=== PATIENT | female | born 1965 | race Caucasian/White ===

== ENCOUNTER 2017-03-21 16:03 | Emergency (ER) | payer SELFPAY ==
[~2017-03-21] VITALS: Ht 165.1 cm; Wt 71.5 kg
[2017-03-21 16:04] VITALS: BP 110/77; PULSE 103; RESP 20; TEMP 98.2; O2SAT 99
[2017-03-21 17:45] VITALS: PULSE 86; RESP 18; O2SAT 100
--- NOTE | 2017-03-26 04:42 | PD ---
HPI Chief Complaint: Skin Problem Time Seen by Provider: 16:12 Travel History International Travel<30 days: No Contact w/Intl Traveler<30days: No Traveled to known affect area: No History of Present Illness HPI Pt is a 51-year-old female presenting to the emergency department for evaluation of a possible insect bite to her neck. Patient states it is on the right side, she noticed it a week ago. Patient states that it appears to be resolving on its own however she continues to have pain. She reports her pain is a 5 out of 10 and states it is sore. She denies any fever, chills, headache , shortness of breath, wheezing, drainage. Symptoms onset was gradual, symptoms exacerbated to touch. PFSH Past Medical History Medical History: Denies Significant Hx ?: Not Social History Alcohol Use: No Tobacco Use: Yes (pack a day ) Substance Use: No Review of Systems Except as stated in HPI: all other systems reviewed are Neg Skin: Positive Lesions Physical Exam Narrative GENERAL: Well-developed, well-nourished, alert female. Presenting in no acute distress. SKIN: Warm and dry. HEAD: Normocephalic. EYES: No scleral icterus. No injection or drainage. CARDIOVASCULAR: Regular rate and rhythm RESPIRATORY: No accessory muscle use. MDM Medical Decision Making Medical Screen Exam Complete: Yes Emergency Medical Condition: Yes Differential Diagnosis Cellulitis versus abscess versus insect bite versus dermatitis versus other Narrative Course Patient is a 51-year-old female presenting for evaluation of a possible insect bite to her neck. She is vital signs are stable, she was placed in a room to see a provider and left before workup could be initiated. Patient left AGAINST MEDICAL ADVICE. Diagnosis Primary Impression: Left against medical advice Disposition: 07 AGAINST MEDICAL ADVICE Ashwini Norman Mar 26, 2017 04:42
== END 2017-03-21 18:00 | disposition left against medical advice (07) ==
LOC: NEPD 16:03
DX: L98.9 Disorder of the skin and subcutaneous tissue, unspecified (principal); F17.200 Nicotine dependence, unspecified, uncomplicated
CPT/HCPCS: 99281

== ENCOUNTER 2017-08-02 05:49 | Emergency (ER) | payer SELFPAY ==
[~2017-08-02] VITALS: Ht 165.1 cm; Wt 70.0 kg
[2017-08-02 05:51] VITALS: BP 137/75; PULSE 102; RESP 20; O2SAT 98
[2017-08-02] MEDS ORDERED: LEVEMIR SQ ×2 (06:13→11:19)
[2017-08-02] MEDS ORDERED: NOVOLOGP2 SQ ×2 (06:13→11:19)
--- NOTE | 2017-08-02 06:37 | PD ---
HPI . Right foot ulcer Chief Complaint: Skin Problem Time Seen by Provider: 06:34 Travel History International Travel<30 days: No Contact w/Intl Traveler<30days: No Traveled to known affect area: No History of Present Illness HPI Patient is a 52-year-old female who has diabetes insulin-dependent she has noticed a week ago small cut on her right heel which has progressed to a very large deep ulcer over the last week she is not on antibiotic she does not have a primary care doctor she has not seen a doctor for this her sugar reading is very high it was 400 in the [facility] and for us it is in the 500s she reports taking her insulin but she says she is very resistant to insulin and often runs very high she is not being followed by primary care doctor her main complaint is severe pain in the right heel and now radiating up to her hip numbness in her lateral right thigh she denies fever she denies shaking chills she also reports having epigastric nausea. 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 occisionally rupture (08/02/17) ; ) Tetanus Vaccination: > 5 Years ?: Not Menopausal: Yes : 2 Para: 2 Miscarriage: 0 : 0 Past Surgical History Surgical History: No Previous Surgery Section: Yes (X2) Social History Alcohol Use: No (denies ) Tobacco Use: No (quit 6mths ago (08/02/17)) Substance Use: No (denies ) Allergies-Medications (Allergen,Severity, Reaction): Coded Allergies: No Known Allergies (Unverified , 08/02/17) Reported Meds & Prescriptions Reported Meds & Active Scripts Active Novolog Inj (Insulin Aspart) 1,000 Unit/10 Ml Vial 5 Units SQ TIDAC Levemir Inj (Insulin Detemir) 1,000 unit/ 10 ML Vial 65 Units SQ HS 30 Days Do not mix with any other Insulin. [place] (Hydrocodone-Acetaminophen) 5 Mg-325 Mg Tab 1 Tab PO Q4H PRN Clindamycin (Clindamycin HCl) 300 Mg Cap 600 Mg PO Q8H 10 Days Review of Systems Except as stated in HPI: all other systems reviewed are Neg General / Constitutional: No: Fever, Chills Musculoskeletal: Positive: Other Physical Exam Narrative GENERAL: Patient is tearful SKIN: Warm and dry. Right foot ulcer on the heel 6 x 4 cm HEAD: Atraumatic. Normocephalic. EYES: Pupils equal and round. No scleral icterus. No injection or drainage. ENT: No nasal bleeding or discharge. Mucous membranes pink and moist. NECK: Trachea midline. No JVD. CARDIOVASCULAR: Regular rate and rhythm. RESPIRATORY: No accessory muscle use. Clear to auscultation. Breath sounds equal bilaterally. GASTROINTESTINAL: Abdomen soft, non-tender, nondistended. Hepatic and splenic margins not palpable. MUSCULOSKELETAL: Extremities --right heel has a dark purple to blackish ulcer 4 cm wide 6 cm long there is no purulence NEUROLOGICAL: Awake and alert. No obvious cranial nerve deficits. Motor grossly within normal limits. Five out of 5 muscle strength in the arms and legs. Normal speech. PSYCHIATRIC: Appropriate mood and affect; insight and judgment normal. Data Data Last Documented VS Vital Signs Date Time Temp Pulse Resp B/P (MAP) Pulse Ox O2 Delivery O2 Flow Rate FiO2 08/02/17 11:30 97.8 78 16 122/81 (95) 99 08/02/17 09:16 Room Air Orders Orders Complete Blood Count With Diff (08/02/17 06:19) Comprehensive Metabolic Panel (08/02/17 06:19) Lipase (08/02/17 06:19) Beta Hydroxybutyrate (Acetone) (08/02/17 06:19) Blood Gas Venous (Vbg) (08/02/17 06:20) Morphine Inj (Morphine Inj) (08/02/17 06:45) Sodium Chlorid 0.9% 500 Ml Inj (Ns 500 M (08/02/17 06:45) Foot, Complete ([id number]) (08/02/17 ) Prochlorperazine Inj (Compazine Inj) (08/02/17 07:15) Morphine Inj (Morphine Inj) (08/02/17 07:15) Clindamycin 600 Mg/Ns Premix (Cleocin 60 (08/02/17 07:15) Insulin Human Regular Inj (Novolin R Inj (08/02/17 07:30) Bedside Glucose KARELY.CSUGAR (08/02/17 09:14) Insulin Human Regular Inj (Novolin R Inj (08/02/17 09:30) Bedside Glucose KARELY.CSUGAR (08/02/17 11:00) Ed Discharge Order (08/02/17 11:20) Labs Laboratory Tests Test 08/02/17 06:00 08/02/17 06:28 White Blood Count 11.0 TH/MM3 Red Blood Count 3.46 MIL/MM3 Hemoglobin 10.3 GM/DL Hematocrit 30.1 % Mean Corpuscular Volume 86.9 FL Mean Corpuscular Hemoglobin 29.8 PG Mean Corpuscular Hemoglobin Concent 34.3 % Red Cell Distribution Width 12.8 % Platelet Count 300 TH/MM3 Mean Platelet Volume 9.8 FL Neutrophils (%) (Auto) 65.6 % Lymphocytes (%) (Auto) 28.3 % Monocytes (%) (Auto) 4.8 % Eosinophils (%) (Auto) 0.4 % Basophils (%) (Auto) 0.9 % Neutrophils # (Auto) 7.2 TH/MM3 Lymphocytes # (Auto) 3.1 TH/MM3 Monocytes # (Auto) 0.5 TH/MM3 Eosinophils # (Auto) 0.0 TH/MM3 Basophils # (Auto) 0.1 TH/MM3 CBC Comment DIFF FINAL Differential Comment Blood Urea Nitrogen 10 MG/DL Creatinine 0.98 MG/DL Random Glucose 496 MG/DL Total Protein 7.7 GM/DL Albumin 1.9 GM/DL Calcium Level 7.6 MG/DL Alkaline Phosphatase 448 U/L Aspartate Amino Transf (AST/SGOT) 37 U/L Alanine Aminotransferase (ALT/SGPT) 25 U/L Total Bilirubin 0.4 MG/DL Sodium Level 132 MEQ/L Potassium Level 3.5 MEQ/L Chloride Level 95 MEQ/L Carbon Dioxide Level 28.3 MEQ/L Anion Gap 9 MEQ/L Estimat Glomerular Filtration Rate 59 ML/MIN Lipase 120 U/L B-Hydroxybutyrate 0.10 MMOL/L Blood Gas Puncture Site PIV Blood Gas Patient Temperature 98.6 Venous Blood pH 7.51 Venous Blood Partial Pressure CO2 34 mmHg Venous Blood Partial Pressure O2 57 mmHg Venous Blood HCO3 27 mmol/L Venous Blood Oxygen Saturation 87 % Venous Blood Oxygen Content 11.6 Vol % Venous Blood Base Excess 4.4 mmol/L Oxygen Delivery Device ROOM AIR Blood Gas Inspired Oxygen 21 % MDM Medical Decision Making Medical Screen Exam Complete: Yes Emergency Medical Condition: Yes Medical Record Reviewed: Yes Differential Diagnosis pt has ulcer on right heal of trauma vs pressure ulcer vs PVD insufficiency vascualr ulcar of ischemia vs infectious other Narrative Course pt has ulcer needs antibiotics and would and podiatry consult , will sign out to on coming attending Diagnosis Primary Impression: Foot ulcer Qualified Codes: L97.519 - Non-pressure chronic ulcer of other part of right foot with unspecified severity Scripts Insulin Aspart Inj (Novolog Inj) 1,000 Unit/10 Ml Vial 5 UNITS SQ TIDAC for Blood Sugar Management, #10 ML 0 Refills Prov: Lolis Brandon MD 08/02/17 Insulin Detemir Inj (Levemir Inj) 1,000 unit/ 10 ML Vial 65 UNITS SQ HS for Blood Sugar Management for 30 Days, VIAL 0 Refills Do not mix with any other Insulin. Prov: Lolis Brandon MD 08/02/17 Hydrocodone-Acetaminophen ([place]) 5 Mg-325 Mg Tab 1 TAB PO Q4H Y for PAIN, #12 TAB 0 Refills Prov: Lolis Brandon MD 08/02/17 Clindamycin (Clindamycin) 300 Mg Cap 600 MG PO Q8H for Infection for 10 Days, #60 CAP 0 Refills Prov: Lolis Brandon MD 08/02/17 Edmundo Salinas MD Aug 02, 2017 06:37
[2017-08-02] MEDS ORDERED: SODIUM CHLORID 0.9% 500 ML INJ 500 ML IV ONE (06:45)
[2017-08-02] MEDS ORDERED: MORPHINE SULFATE 4 MG/ML INJ IV PUSH ONE ×2 (06:45→07:15)
[2017-08-02 06:48] LABS: AUTOMATED NEUTROPHIL # 7.2 TH/MM3 (1.8-7.7); BASOPHIL # 0.1 TH/MM3 (0-0.2); BASOPHIL % 0.9 % (0.0-2.0); EOSINOPHIL % 0.4 % (0.0-4.0); HEMATOCRIT 30.1 % (35.0-46.0); HEMOGLOBIN 10.3 GM/DL (11.6-15.3); LYMPH % 28.3 % (9.0-44.0); LYMPHOCYTE # 3.1 TH/MM3 (1.0-4.8); MEAN CELL VOLUME 86.9 FL (80.0-100.0); MEAN CORPUSCULAR HEMOGLOBIN 29.8 PG (27.0-34.0); MEAN CORPUSCULAR HGB CONC 34.3 % (32.0-36.0); MEAN PLATELET VOLUME 9.8 FL (7.0-11.0); MONO % 4.8 % (0.0-8.0); MONOCYTE # 0.5 TH/MM3 (0-0.9); NEUT % 65.6 % (16.0-70.0); PLATELET COUNT 300 TH/MM3 (150-450); RED BLOOD COUNT 3.46 MIL/MM3 (4.00-5.30); RED CELL DISTRIBUTION WIDTH 12.8 % (11.6-17.2)
[2017-08-02] MEDS ORDERED: CLINDAMYCIN 600 MG/NS PREMIX 50 ML IV ONE (07:15)
[2017-08-02] MEDS ORDERED: PROCHLORPERAZINE INJ 10 MG/2 ML VIAL IV PUSH ONE (07:15)
[2017-08-02 07:16] LABS: ALBUMIN 1.9 GM/DL (3.4-5.0); ALKALINE PHOSPHATASE 448 U/L (45-117); ALT (GPT) 25 U/L (10-53); AST (GOT) 37 U/L (15-37); BICARBONATE 28.3 MEQ/L (21.0-32.0); BLOOD UREA NITROGEN 10 MG/DL (7-18); CALCIUM 7.6 MG/DL (8.5-10.1); CHLORIDE 95 MEQ/L (98-107); CREATININE 0.98 MG/DL (0.50-1.00); GLOMERULAR FILTRATION RATE 59 ML/MIN (>89); SODIUM (NA) 132 MEQ/L (136-145); TOTAL BILIRUBIN ADULT 0.4 MG/DL (0.2-1.0); TOTAL PROTEIN 7.7 GM/DL (6.4-8.2)
--- NOTE | 2017-08-02 07:16 | RADRPT ---
EXAM DATE: 08/02/2017 7:03 AM EDT AGE/SEX: 52 years / Female INDICATIONS: Pain and inflammation right foot, evaluate osteomyelitis CLINICAL DATA: This is the patient's initial encounter. Patient reports that signs and symptoms have been present for 4 - 6 days and indicates a pain score of 10/10. MEDICAL/SURGICAL HISTORY: Diabetes mellitus type II. ulcer on right heel None. COMPARISON: No prior exams available for comparison. FINDINGS: Bony structures are intact and in normal alignment. Osseous density is normal. Soft tissues are unre markable. No radiopaque foreign bodies seen. Bone spur posterior calcaneus. CONCLUSION: No plain film findings of osteomyelitis. Electronically signed by: Ranulfo Escalera MD 08/02/2017 7:15 AM EDT
[2017-08-02 07:21] LABS: GLUCOSE,RANDOM 496 MG/DL (74-106)
[2017-08-02] MEDS ORDERED: INSULIN HUMAN REGULAR 1,000 UNITS/10 ML VIAL SQ ONE ×2 (07:30→09:30)
[2017-08-02 07:47] VITALS: BP 123/74; PULSE 84; RESP 16; TEMP 98.1; O2SAT 98
[2017-08-02] MEDS ORDERED: CLIN300C5 PO (08:21)
--- NOTE | 2017-08-02 08:22 | PD ---
Physical Exam Date Seen by Provider: Aug 02, 2017 Narrative Care was assumed at [address] Salinas. The patient is being evaluated for a diabetic foot ulcer on the right foot. Onset was a week ago. It is getting progressively worse. She now complains of pain which she rates 10/10. She does not have any associated fever. She admits that she has been out of her medicines for many months. GENERAL: Awake and alert. Moaning. SKIN: Warm and dry. Normal color and turgor. She has a wound on the right heel with a black eschar. There is no purulent drainage. No visible bone. The wound is deep to the dermis and possibly into the fat layer. The surrounding skin is slightly red and warm. HEAD: Normocephalic/atraumatic. EYES: Pupils are equal. Extraocular movements are intact. NECK: Normal range of motion. Supple. CARDIOVASCULAR: Regular rate and rhythm. RESPIRATORY: Nonlabored respirations. Normal sats. MUSCULOSKELETAL: Atraumatic. Normal muscle tone. NEUROLOGICAL: A and O 3. Nonfocal. PSYCHIATRIC: Appropriate mood and affect. Data Data Last Documented VS Vital Signs Date Time Temp Pulse Resp B/P (MAP) Pulse Ox O2 Delivery O2 Flow Rate FiO2 08/02/17 09:16 97.9 81 16 123/71 (88) 99 Room Air Orders Orders Complete Blood Count With Diff (08/02/17 06:19) Comprehensive Metabolic Panel (08/02/17 06:19) Lipase (08/02/17 06:19) Beta Hydroxybutyrate (Acetone) (08/02/17 06:19) Blood Gas Venous (Vbg) (08/02/17 06:20) Morphine Inj (Morphine Inj) (08/02/17 06:45) Sodium Chlorid 0.9% 500 Ml Inj (Ns 500 M (08/02/17 06:45) Foot, Complete (Tcs2hrj) (08/02/17 ) Prochlorperazine Inj (Compazine Inj) (08/02/17 07:15) Morphine Inj (Morphine Inj) (08/02/17 07:15) Clindamycin 600 Mg/Ns Premix (Cleocin 60 (08/02/17 07:15) Insulin Human Regular Inj (Novolin R Inj (08/02/17 07:30) Bedside Glucose KARELY.CSUGAR (08/02/17 09:14) Insulin Human Regular Inj (Novolin R Inj (08/02/17 09:30) Bedside Glucose KARELY.CSUGAR (08/02/17 11:00) Labs Laboratory Tests Test 08/02/17 06:00 08/02/17 06:28 White Blood Count 11.0 TH/MM3 Red Blood Count 3.46 MIL/MM3 Hemoglobin 10.3 GM/DL Hematocrit 30.1 % Mean Corpuscular Volume 86.9 FL Mean Corpuscular Hemoglobin 29.8 PG Mean Corpuscular Hemoglobin Concent 34.3 % Red Cell Distribution Width 12.8 % Platelet Count 300 TH/MM3 Mean Platelet Volume 9.8 FL Neutrophils (%) (Auto) 65.6 % Lymphocytes (%) (Auto) 28.3 % Monocytes (%) (Auto) 4.8 % Eosinophils (%) (Auto) 0.4 % Basophils (%) (Auto) 0.9 % Neutrophils # (Auto) 7.2 TH/MM3 Lymphocytes # (Auto) 3.1 TH/MM3 Monocytes # (Auto) 0.5 TH/MM3 Eosinophils # (Auto) 0.0 TH/MM3 Basophils # (Auto) 0.1 TH/MM3 CBC Comment DIFF FINAL Differential Comment Blood Urea Nitrogen 10 MG/DL Creatinine 0.98 MG/DL Random Glucose 496 MG/DL Total Protein 7.7 GM/DL Albumin 1.9 GM/DL Calcium Level 7.6 MG/DL Alkaline Phosphatase 448 U/L Aspartate Amino Transf (AST/SGOT) 37 U/L Alanine Aminotransferase (ALT/SGPT) 25 U/L Total Bilirubin 0.4 MG/DL Sodium Level 132 MEQ/L Potassium Level 3.5 MEQ/L Chloride Level 95 MEQ/L Carbon Dioxide Level 28.3 MEQ/L Anion Gap 9 MEQ/L Estimat Glomerular Filtration Rate 59 ML/MIN Lipase 120 U/L B-Hydroxybutyrate 0.10 MMOL/L Blood Gas Puncture Site PIV Blood Gas Patient Temperature 98.6 Venous Blood pH 7.51 Venous Blood Partial Pressure CO2 34 mmHg Venous Blood Partial Pressure O2 57 mmHg Venous Blood HCO3 27 mmol/L Venous Blood Oxygen Saturation 87 % Venous Blood Oxygen Content 11.6 Vol % Venous Blood Base Excess 4.4 mmol/L Oxygen Delivery Device ROOM AIR Blood Gas Inspired Oxygen 21 % MDM Supervised Visit with DERRICK: No Narrative Course CBC & BMP Diagram 08/02/17 06:00 Total Protein 7.7, Albumin 1.9 L, Calcium Level 7.6 L, Alkaline Phosphatase 448 H, Aspartate Amino Transf (AST/SGOT) 37, Alanine Aminotransferase (ALT/SGPT) 25 , Total Bilirubin 0.4 Last Impressions Foot X-Ray 08/02/17 0000 Signed Impressions: CONCLUSION: No plain film findings of osteomyelitis. The patient has a diabetic foot ulcer but no evidence of sepsis. She is hyperglycemic. She has been given insulin. She has been given clindamycin for the foot ulcer. I believe that she is stable for treatment as an outpatient in the wound care clinic. [employer] has been queried and reviewed. Blood glucose level is down to 271. This patient is now safe for discharge to home. I will write her prescriptions for her usual diabetic medications. Diagnosis Primary Impression: Diabetic foot ulcer Qualified Codes: E08.621 - Diabetes mellitus due to underlying condition with foot ulcer; L97.411 - Non-pressure chronic ulcer of right heel and midfoot limited to breakdown of skin Referrals: [facility] 1 day [facility] Patient Instructions: Diabetic Foot Ulcers (DC), General Instructions, Narcotic given in the ED Med/Other Pt SpecificInfo: Prescription(s) given Scripts Insulin Aspart Inj (Novolog Inj) 1,000 Unit/10 Ml Vial 5 UNITS SQ TIDAC for Blood Sugar Management, #10 ML 0 Refills Prov: Lolis Brandon MD 08/02/17 Insulin Detemir Inj (Levemir Inj) 1,000 unit/ 10 ML Vial 65 UNITS SQ HS for Blood Sugar Management for 30 Days, VIAL 0 Refills Do not mix with any other Insulin. Prov: Lolis Brandon MD 08/02/17 Hydrocodone-Acetaminophen ([place]) 5 Mg-325 Mg Tab 1 TAB PO Q4H Y for PAIN, #12 TAB 0 Refills Prov: Lolis Brandon MD 08/02/17 Clindamycin (Clindamycin) 300 Mg Cap 600 MG PO Q8H for Infection for 10 Days, #60 CAP 0 Refills Prov: Lolis Brandon MD 08/02/17 Disposition: 01 DISCHARGE HOME Condition: Stable Lolis Brandon MD Aug 02, 2017 08:21
[2017-08-02] MEDS ORDERED: NORC5TAB PO (08:25)
[2017-08-02 09:16] VITALS: BP 123/71; PULSE 81; RESP 16; TEMP 97.9; O2SAT 99
[2017-08-02 11:30] VITALS: BP 122/81; TEMP 97.8
== END 2017-08-02 12:00 | disposition home or self-care (01) ==
LOC: NEPE 05:49 → NEDAMB 12:00
DX: E11.621 Type 2 diabetes mellitus with foot ulcer (principal); L97.411 Non-pressure chronic ulcer of right heel and midfoot limited to breakdown of skin; E11.65 Type 2 diabetes mellitus with hyperglycemia; M25.551 Pain in right hip; R20.0 Anesthesia of skin; R11.0 Nausea; I10 Essential (primary) hypertension; K21.9 Gastro-esophageal reflux disease without esophagitis; Z79.4 Long term (current) use of insulin; Z87.19 Personal history of other diseases of the digestive system; Z87.39 Personal history of other diseases of the musculoskeletal system and connective tissue; Z86.69 Personal history of other diseases of the nervous system and sense organs; Z86.59 Personal history of other mental and behavioral disorders; Z87.891 Personal history of nicotine dependence
CPT/HCPCS: 73630; 80053; 82010; 82805; 83690; 85025; 96361; 96372; 96374; 96375; 96376; 99284; J0780; J1815; J2270; J7040

== ENCOUNTER 2017-08-21 19:03 | Inpatient (IN) ==
[2017-08-21] MEDS ORDERED: Sod Chloride 0.9% Inj 2,000 ML IV.SIG ONE (19:30)
--- NOTE | 2017-08-21 19:47 | XR ---
EXAM DATE: 08/21/2017 7:43 PM EDT AGE/SEX: 52 years / Female INDICATIONS: Fever. CLINICAL DATA: This is the patient's initial encounter. Patient reports that signs and symptoms have been present for 1 day and indicates a pain score of 0/10. MEDICAL/SURGICAL HISTORY: Diabetes mellitus type II. None. COMPARISON: None. FINDINGS: A single AP view of the chest demonstrates the lungs to be symmetrically aerated without evidence of mass, infiltrate or effusion. The cardiomediastinal contours are unremarkable. Osseous structures a re intact. CONCLUSION: Negative examination. Electronically signed by: Prudencio Henry MD 08/21/2017 7:46 PM EDT
--- NOTE | 2017-08-21 20:11 | ED ---
HPI General Stated Complaint: diabetic/evac Time Seen by Provider: 08/21/17 19:20 Source: patient Mode of arrival: EMS Limitations: no limitations History of Present Illness HPI narrative: 32-year-old female with PMH of DM presents the ED for evaluation of 2 week history of diabetic foot wound. Patient states that she was seen in the ED and provided with antibiotics but has been noncompliant with the medications because she could not afford them. She also states that she has been out of insulin for about a week. She states that she has not been able to move around very much and has had very little to eat or drink over the last couple days. She states that her landlord came by today to check on her and called EMS. Extremity Location: Right: foot (wound of heel with cellulitc changes) 2 1. wound and cellulitic changes Related Data Allergies Allergy/AdvReac Type Severity Reaction Status Date / Time No Known Allergies Allergy Unverified 08/02/17 06:11 Exam Narrative Exam Narrative: GENERAL: Well-nourished, well-developed white female no acute distress. SKIN: Focused skin assessment warm/dry. 4-5 cm defect on the right heel with black eschar. There are cellulitic changes to the mid ankle. No crepitus. HEAD: Atraumatic. Normocephalic. EYES: Pupils equal and round. No scleral icterus. No injection or drainage. ENT: No nasal bleeding or discharge. Mucous membranes pink and moist. NECK: Trachea midline. No JVD. CARDIOVASCULAR: Regular rate and rhythm. No murmur appreciated. RESPIRATORY: No accessory muscle use. Clear to auscultation. Breath sounds equal bilaterally. GASTROINTESTINAL: Abdomen soft, non-tender, nondistended. Hepatic and splenic margins not palpable. MUSCULOSKELETAL: No obvious deformities. No clubbing. No cyanosis. No edema. NEUROLOGICAL: Awake and alert. No obvious cranial nerve deficits. Motor grossly within normal limits. Normal speech. PSYCHIATRIC: Appropriate mood and affect; insight and judgment normal. Course Initial Documented Vital Signs Pulse Oximetry 100 08/21/17 19:27 Last Documented Vital Signs Temperature 97.7 F 08/21/17 21:21 Pulse Rate 84 08/21/17 21:21 Respiratory Rate 16 08/21/17 21:21 Blood Pressure 115/60 08/21/17 21:21 Pulse Oximetry 96 08/21/17 21:21 Medical Decision Making MDM Narrative Medical decision making narrative: A 52-year-old female with PMH of T2DM presents the ED for evaluation of chronic foot wound. Patient states that the foot has been right and painful for many days. She also states that she has been on insulin for 1 week. She was seen in the ED 2 weeks ago and prescribed medications with states that she has not been able to afford them. The patient is afebrile and hypotensive on presentation. Fingerstick blood glucose 400+. IV was established. Blood cultures were obtained. Patient was administered 2 L normal saline. EKG: No acute changes. Reviewed by Dr. Davis. CBC: WBC 25.3, 85% neutrophils. INR 1.2. CMP: Sodium 121, glucose 398, potassium 2.6. Beta hydroxybutyrate 0.10. Lactic acid 1.9 CXR: Negative. X-ray right foot: Soft tissue defect without definite evidence of osteomyelitis Patient was administered IV vancomycin and Zosyn. She was administered 40 mEq potassium p.o. and 20 mEq potassium IV. She was administered units subcutaneous insulin. Patient is agreeable to admission. I spoke with Dr. Nunez who agrees to accept the patient to the medicine service in the ICU. Please see medicine notes for disposition. Differential Diagnosis Differential Diagnosis: Hypoglycemia versus metabolic derangement versus cellulitis Lab Data Result diagrams: 08/21/17 19:25 08/21/17 19:25 Lab Results 08/21/17 08/21/17 08/21/17 Range/Units 19:25 19:25 19:25 WBC 25.3 H (4.0-11.0) th/mm3 RBC 3.47 L (4.00-5.30) mil/mm3 Hgb 9.9 L (11.6-15.3) gm/dL Hct 28.8 L (35.0-46.0) % MCV 83.0 (80.0-100.0) fL MCH 28.5 (27.0-34.0) pg MCHC 34.4 (32.0-36.0) % RDW 12.9 (11.6-17.2) % Plt Count 220 (150-450) th/mm3 MPV 10.0 (7.0-11.0) fL Neut % (Auto) 85.0 H (16.0-70.0) % Lymph % (Auto) 11.5 (9.0-44.0) % [place] % (Auto) 3.0 (0.0-8.0) % Eos % (Auto) 0.1 (0.0-4.0) % Baso % (Auto) 0.4 (0.0-2.0) % Neut # (Auto) 21.5 H (1.8-7.7) th/mm3 Lymph # (Auto) 2.9 (1.0-4.8) th/mm3 [place] # (Auto) 0.8 (0.0-0.9) th/mm3 Eos # (Auto) 0.0 (0.0-0.4) th/mm3 Baso # (Auto) 0.1 (0.0-0.2) th/mm3 WBC Differential . Differential Comment Auto diff final PT 11.8 H (9.8-11.6) sec INR 1.2 Ratio APTT 28.5 (24.3-30.1) sec Sodium 121 L* (136-145) meq/L Potassium 2.6 L* (3.5-5.1) meq/L Chloride 81 L (98-107) meq/L Carbon Dioxide 26.9 (21.0-32.0) meq/L Anion Gap 13 (5-15) meq/L BUN 11 (7-18) mg/dL Creatinine 1.14 H (0.50-1.00) mg/dL Estimated GFR 50 L (>89) mL/min POC Glucose (68-110) mg/dl Random Glucose 398 H (74-106) mg/dL Lactic Acid (0.4-2.0) mmol/L Calcium 8.2 L (8.5-10.1) mg/dL Total Bilirubin 0.5 (0.2-1.0) mg/dL AST 14 L (15-37) U/L ALT 9 L (10-53) U/L Alkaline Phosphatase 224 H (45-117) U/L Total Protein 7.4 (6.4-8.2) g/dL Albumin 1.8 L (3.4-5.0) g/dL 08/21/17 08/21/17 Range/Units 19:25 19:28 WBC (4.0-11.0) th/mm3 RBC (4.00-5.30) mil/mm3 Hgb (11.6-15.3) gm/dL Hct (35.0-46.0) % MCV (80.0-100.0) fL MCH (27.0-34.0) pg MCHC (32.0-36.0) % RDW (11.6-17.2) % Plt Count (150-450) th/mm3 MPV (7.0-11.0) fL Neut % (Auto) (16.0-70.0) % Lymph % (Auto) (9.0-44.0) % [place] % (Auto) (0.0-8.0) % Eos % (Auto) (0.0-4.0) % Baso % (Auto) (0.0-2.0) % Neut # (Auto) (1.8-7.7) th/mm3 Lymph # (Auto) (1.0-4.8) th/mm3 [place] # (Auto) (0.0-0.9) th/mm3 Eos # (Auto) (0.0-0.4) th/mm3 Baso # (Auto) (0.0-0.2) th/mm3 WBC Differential Differential Comment PT (9.8-11.6) sec INR Ratio APTT (24.3-30.1) sec Sodium (136-145) meq/L Potassium (3.5-5.1) meq/L Chloride (98-107) meq/L Carbon Dioxide (21.0-32.0) meq/L Anion Gap (5-15) meq/L BUN (7-18) mg/dL Creatinine (0.50-1.00) mg/dL Estimated GFR (>89) mL/min POC Glucose 479 H* (68-110) mg/dl Random Glucose (74-106) mg/dL Lactic Acid 1.9 (0.4-2.0) mmol/L Calcium (8.5-10.1) mg/dL Total Bilirubin (0.2-1.0) mg/dL AST (15-37) U/L ALT (10-53) U/L Alkaline Phosphatase (45-117) U/L Total Protein (6.4-8.2) g/dL Albumin (3.4-5.0) g/dL Imaging Data Radiologist's impression: ITS Impressions Chest X-Ray 08/21/17 19:27 CONCLUSION: Negative examination. Foot X-Ray 08/21/17 20:40 CONCLUSION: Soft tissue defect overlying the heel. No radiographic evidence to clearly suggest osteomyelitis. Discharge Plan Discharge Disposition Patient Disposition: 30 Still Patient Discharge Condition Condition: Stable Discharge Details Discharge Problem: Cellulitis of foot, right, Hyponatremia, Hyperglycemia, Hypokalemia Physicians Team ED Provider: Ema Davis ED Midlevel Provider: Sima Huff Primary Care Provider: Primary Care Kari,No Status ED Status: With Doctor
[2017-08-21 20:12] LABS: Baso # (Auto) 0.1 th/mm3 (0.0-0.2); Baso % (Auto) 0.4 % (0.0-2.0); Eos % (Auto) 0.1 % (0.0-4.0); Hematocrit 28.8 % (35.0-46.0); Hemoglobin 9.9 gm/dL (11.6-15.3); Lymph # (Auto) 2.9 th/mm3 (1.0-4.8); Lymph % (Auto) 11.5 % (9.0-44.0); Mean Corpuscular HGB Conc 34.4 % (32.0-36.0); Mean Corpuscular Hemoglobin 28.5 pg (27.0-34.0); Mono # (Auto) 0.8 th/mm3 (0.0-0.9); Neut # (Auto) 21.5 th/mm3 (1.8-7.7); Platelet Count 220 th/mm3 (150-450); Red Blood Count 3.47 mil/mm3 (4.00-5.30); Red Cell Distribution Width 12.9 % (11.6-17.2); White Blood Count 25.3 th/mm3 (4.0-11.0)
[2017-08-21 20:25] LABS: Activated Partial Thrombo Time 28.5 sec (24.3-30.1); INR 1.2 Ratio; Prothrombin Time 11.8 sec (9.8-11.6)
[2017-08-21 20:39] LABS: Alanine Aminotransferase 9 U/L (10-53); Albumin 1.8 g/dL (3.4-5.0); Alkaline Phosphatase 224 U/L (45-117); Anion Gap 13 meq/L (5-15); Aspartate Aminotransferase 14 U/L (15-37); Blood Urea Nitrogen 11 mg/dL (7-18); Calcium 8.2 mg/dL (8.5-10.1); Carbon Dioxide 26.9 meq/L (21.0-32.0); Chloride 81 meq/L (98-107); Glomerular Filtration Rate 50 mL/min (>89); Glucose,Random 398 mg/dL (74-106); Total Protein 7.4 g/dL (6.4-8.2)
[2017-08-21] MEDS ORDERED: Vancomycin Inj 1 GM/200 ML PIGGYBACK IV.SIG ONE (20:39)
[2017-08-21] MEDS ORDERED: Piperacil/Tazo 4.5 GM Premix 4.5 GM/100 ML BAG IV.SIG ONE (20:39)
[2017-08-21 20:42] LABS: Potassium 2.6 meq/L (3.5-5.1); Sodium 121 meq/L (136-145)
--- NOTE | 2017-08-21 21:10 | XR ---
EXAM DATE: 08/21/2017 9:03 PM EDT AGE/SEX: 52 years / Female INDICATIONS: Right foot infection and swelling, heel region. CLINICAL DATA: This is the patient's sequela encounter. Patient reports that signs and symptoms have been present for 1 month and indicates a pain score of 10/10. MEDICAL/SURGICAL HISTORY: Diabetes mellitus type II. None. COMPARISON: Right foot x-ray 08/02/2017. FINDINGS: Bony structures are intact and in normal alignment. Calcaneal spurring. Osseous density is normal. So ft tissue defect overlying the heel.. No radiopaque foreign bodies seen. CONCLUSION: Soft tissue defect overlying the heel. No radiographic evidence to clearly suggest osteomyelitis. Electronically signed by: Prudencio Henry MD 08/21/2017 9:08 PM EDT
--- NOTE | 2017-08-21 21:16 | ECG ---
Date Performed: 08/21/2017 Time Performed: 19:28:49 PTAGE: 52 years EKG: Sinus rhythm NO PREVIOUS TRACING DOCTOR: Nimisha Pugh Interpretating Date/Time 08/21/2017 21:15:07
[2017-08-21] MEDS ORDERED: Bisacodyl 10 MG Supp RECTAL PRN (21:51)
[2017-08-21] MEDS ORDERED: Vancomycin Consult Pharmacy 1 EACH OTHER SCH (22:00)
[2017-08-21] MEDS: Heparin - SQ 10,000 UNITS/ML Vial SQ SCH (22:23)
[2017-08-21 22:28] LABS: Amorphous Sediment,Urine Rare /hpf; Bilirubin,Urine Negative (Negative); Clarity,Urine Hazy (Clear); Color,Urine Yellow (Yellw/Straw); Glucose,Urine (UA) 500 or Greater mg/dL (Negative); Leukocyte Esterase,Urine Negative (Negative); Nitrite,Urine Negative (Negative); Specific Gravity,Urine 1.015 (1.002-1.035); Squamous Epithelial Cell,Urine 2 /hpf (0-5)
[2017-08-22] MEDS ORDERED: Sod Chloride 0.9% Inj 1,000 ML IV.SIG ONE (00:03)
--- NOTE | 2017-08-22 00:16 | P.HPIM ---
History of Present Illness Primary Care Physician: No Primary Care Physician Chief Complaint: Weakness. History of Present Illness: 52-year-old female with diabetes on insulin, chronic right heel ulcer who presents with a 1 day history of extreme weakness, inability to walk. She is brought in by her landlord who went to check on her found her unable to walk. Patient was seen in the ER about 2 weeks ago and prescribed antibiotics, however has not taken due to being unable to afford. She is also run out of her insulin for about a week. Patient says she has been tired over the past few days, progressively worsening generalized weakness. She says she is not sure if she has fevers. She reports bilateral leg pain, says they always hurt. Patient denies any chest pain or shortness of breath. Family history reviewed with patient and found to be currently noncontributory. - Inpatient Certification If this patient has been admitted as an Inpatient: I certify that the inpatient services were ordered in accordance with Medicare regulations governing the order. This includes certification that hospital inpatient services are reasonable and necessary and in the case of services not specified as inpatient-only under 42 CFR 419.22(n), that they are appropriately provided as inpatient services in accordance to with the 2-midnight benchmark under 43 CFR 412.3(e) Estimated Total Length of Stay (Days): 2 Plans for Post Hospital Care: Home Review of Systems All other systems reviewed negative except as stated in HPI [facility] - History History Provided By: Patient - Medical History Medical History: Medical History (Last Updated 08/21/17 @ 22:29 by Aleja Roper RN) Benign hypertension Diabetes Hepatitis C virus - Surgical History Surgical History: Surgical History (Last Updated 08/21/17 @ 22:30 by Aleja Roper RN) Previous section - Tobacco History Smoking Status: Former smoker - Alcohol History How Often Do You Have a Drink Containing Alcohol: Unable to Obtain - Immunization History Tetanus Immunization: Unable to Assess Hx Influenza Vaccine This Season: No Medications and Allergies Active Medications: Active Medications Al Hydroxide/Mg Hydroxide (Milk Of Krsiten Liq) 30 ml PO Q12H PRN PRN Reason: Mild Constipation Bisacodyl (Dulcolax Supp) 10 mg RECTAL DAILY PRN PRN Reason: SEVERE CONSITIPATION Heparin Sodium (Porcine) (Heparin Inj) 5,000 units SQ Q12H [facility] Last Admin: 08/21/17 22:23 Dose: 5,000 units Potassium Chloride/Sodium Chloride (Ns + Kcl 20 Meq Inj) 1,000 mls @ 42 mls/hr IV.CONT .[id number] ONE Stop: 08/22/17 20:44 Last Admin: 08/21/17 22:14 Dose: 42 mls/hr Potassium Chloride (Kcl 10 Meq Premix Inj) 10 meq in 100 mls @ 100 mls/hr IV.SIG Q1H [facility] Stop: 08/22/17 04:59 Pharmacy Profile Note (Vancomycin Consult Pharmacy) 0 mls @ 0 mls/hr OTHER UNSCH [facility] Piperacillin/Tazobactam/Dextrose (Zosyn 3.375 Gm Premix) 50 mls @ 100 mls/hr IV.SIG Q6H [facility] Lactulose (Lactulose Liq) 30 ml PO DAILY PRN PRN Reason: SEVERE CONSITIPATION Senna/Docusate Sodium (Belinda-Colace) 1 tab PO BID [facility] Sennosides (Senokot) 17.2 mg PO Q12H PRN PRN Reason: Moderate Constipation Temazepam (Restoril) 15 mg PO HS PRN PRN Reason: INSOMNIA Allergies Allergy/AdvReac Type Severity Reaction Status Date / Time No Known Allergies Allergy Unverified 08/02/17 06:11 Exam Vital signs: Vital Signs 08/21/17 19:27 08/21/17 21:21 Temperature 97.7 F Pulse Rate 84 Respiratory Rate 16 Blood Pressure 115/60 Pulse Oximetry 100 96 Narrative: GENERAL: Patient lying in bed. Sleeping, wakes up for exam. She is oriented 3. SKIN: Warm and dry. HEAD: Atraumatic. Normocephalic. EYES: Pupils equal and round. No scleral icterus. No injection or drainage. ENT: No nasal bleeding or discharge. Mucous membranes pink and moist. NECK: Trachea midline. No JVD. CARDIOVASCULAR: Regular rate and rhythm. RESPIRATORY: No accessory muscle use. Clear to auscultation. Breath sounds equal bilaterally. GASTROINTESTINAL: Abdomen soft, non-tender, nondistended. Hepatic and splenic margins not palpable. MUSCULOSKELETAL: Extremities without clubbing, cyanosis, or edema. Patient has large right heel wound with eschar, about 5 x 5 cm with additional 6 cm of surrounding erythema. NEUROLOGICAL: Somnolent, wakes up for exam. No obvious cranial nerve deficits. Motor grossly within normal limits. Five out of 5 muscle strength in the arms and legs. Normal speech. PSYCHIATRIC: Appropriate mood and affect; insight and judgment normal. Results - Labs CBC & Chem 7: 08/21/17 19:25 08/21/17 19:25 Labs: Short CBC 08/21/17 Range/Units 19:25 WBC 25.3 H (4.0-11.0) th/mm3 Hgb 9.9 L (11.6-15.3) gm/dL Hct 28.8 L (35.0-46.0) % Plt Count 220 (150-450) th/mm3 BMP 08/21/17 19:25 Sodium 121 L* Potassium 2.6 L* Chloride 81 L Carbon Dioxide 26.9 BUN 11 Creatinine 1.14 H Calcium 8.2 L Liver Function 08/21/17 Range/Units 19:25 Total Bilirubin 0.5 (0.2-1.0) mg/dL AST 14 L (15-37) U/L ALT 9 L (10-53) U/L Alkaline Phosphatase 224 H (45-117) U/L Albumin 1.8 L (3.4-5.0) g/dL Urine 08/21/17 Range/Units 21:25 Urine Color Yellow (Yellw/Straw) Urine Clarity Hazy H (Clear) Urine pH 5.0 (5.0-8.5) Ur Specific [place] 1.015 (1.002-1.035) Urine Protein 30 H (Neg-Trace) mg/dL Urine Glucose (UA) 500 or greater (Negative) mg/dL - Imaging Impressions Chest X-Ray 08/21/17 19:27 CONCLUSION: Negative examination. Foot X-Ray 08/21/17 20:40 CONCLUSION: Soft tissue defect overlying the heel. No radiographic evidence to clearly suggest osteomyelitis. Caprini VTE Risk Assessment Caprini VTE Risk Assessment: No/Low Risk (score <= 1) Caprini Risk Assessment Model: Point Value = 1 Point Value = 2 Point Value = 3 Point Value = 5 Age 41-60 Minor surgery BMI > 25 kg/m2 Swollen legs Varicose veins or History of unexplained or recurrent spontaneous Oral contraceptives or hormone replacement Sepsis (< 1 month) Serious lung disease, including pneumonia (< 1 month) Abnormal pulmonary function Acute myocardial infarction Congestive heart failure (< 1 month) History of inflammatory bowel disease Medical patient at bed rest Age 61-74 Arthroscopic surgery Major open surgery (> 45 min) Laparoscopic surgery (> 45 min) Malignancy Confined to bed (> 72 hours) Immobilizing plaster cast Central venous access Age >= 75 History of VTE Family history of VTE Factor V Leiden Prothrombin [id number] Lupus anticoagulant Anticardiolipin antibodies Elevated serum homocysteine Heparin-induced thrombocytopenia Other congenital or acquired thrombophilia Stroke (< 1 month) Elective arthroplasty Hip, pelvis, or leg fracture Acute spinal cord injury (< 1 month) Prophylaxis Regimen: Total Risk Factor Score Risk Level Prophylaxis Regimen 0-1 Low Early ambulation 2 Moderate Order ONE of the following: *Sequential Compression Device (SCD) *Heparin 5000 units SQ BID 3-4 Higher Order ONE of the following medications: *Heparin 5000 units SQ TID *Enoxaparin/Lovenox 40 mg SQ daily (WT < 150 kg, CrCl > 30 mL/min) *Enoxaparin/Lovenox 30 mg SQ daily (WT < 150 kg, CrCl > 10-29 mL/min) *Enoxaparin/Lovenox 30 mg SQ BID (WT < 150 kg, CrCl > 30 mL/min) AND/OR *Sequential Compression Device (SCD) 5 or more Highest Order ONE of the following medications: *Heparin 5000 units SQ TID (Preferred with Epidurals) *Enoxaparin/Lovenox 40 mg SQ daily (WT < 150 kg, CrCl > 30 mL/min) *Enoxaparin/Lovenox 30 mg SQ daily (WT < 150 kg, CrCl > 10-29 mL/min) *Enoxaparin/Lovenox 30 mg SQ BID (WT < 150 kg, CrCl > 30 mL/min) AND *Sequential Compression Device (SCD) Assessment and Plan - Plan //Severe sepsis //Leukocytosis 25.3 //Patient tachycardic, sinus tachycardia in the 100s on my evaluation = Likely secondary to right lower extremity diabetic foot wound. = Blood cultures pending. Start on broad-spectrum antibiotics. //Right heel diabetic foot wound. //Osteomyelitis = Although x-ray does not indicate osteo-myelitis, wound is down to bone. This has progressed to osteomyelitis. consult podiatry. Broad-spectrum antibiotics. //Hyperglycemia on admission = Glucose 479. However with low potassium 2.6. Patient is already received insulin subcu in the ER. Will await repeat potassium after replacement. //Hypokalemia. 2.6. Replaced by mouth with 40 mEq in the ER. Have ordered additional IV replacement. Will repeat potassium level prior to giving more insulin. //Hypovolemic hyponatremia. Acute. Sodium 121, corrects to about 127. = IV fluids. fOLLOW corrected sodium Discussed Condition With: Patient, nurse, ED physician.
[2017-08-22 00:18] LABS: Beta Hydroxybutyric Acid 0.32 mmol/L (0.00-0.39)
[2017-08-22] MEDS: Potassium Chlor 10 mEq Premix 10 MEQ/100 ML PIGGYBACK IV.SIG SCH ×3 (02:06→04:56)
[2017-08-22] MEDS: Temazepam 15 MG Capsule PO PRN ×2 (02:07→20:14)
[2017-08-22 03:43] LABS: Baso # (Auto) 0.1 th/mm3 (0.0-0.2); Baso % (Auto) 0.5 % (0.0-2.0); Eos # (Auto) 0.1 th/mm3 (0.0-0.4); Eos % (Auto) 0.4 % (0.0-4.0); Hematocrit 24.4 % (35.0-46.0); Hemoglobin 8.5 gm/dL (11.6-15.3); Lymph # (Auto) 3.2 th/mm3 (1.0-4.8); Mean Corpuscular HGB Conc 34.9 % (32.0-36.0); Mean Corpuscular Hemoglobin 29.1 pg (27.0-34.0); Mean Corpuscular Volume 83.4 fL (80.0-100.0); Mono # (Auto) 0.6 th/mm3 (0.0-0.9); Mono % (Auto) 2.8 % (0.0-8.0); Neut # (Auto) 17.1 th/mm3 (1.8-7.7); Neut % (Auto) 81.3 % (16.0-70.0); Platelet Count 194 th/mm3 (150-450); Red Blood Count 2.93 mil/mm3 (4.00-5.30); Red Cell Distribution Width 13.1 % (11.6-17.2)
[2017-08-22] MEDS: Piperacil/Tazo 3.375 GM Premix 50 ML IV.SIG SCH ×3 (04:52→15:59)
[2017-08-22 05:19] LABS: Alanine Aminotransferase 8 U/L (10-53); Albumin 1.6 g/dL (3.4-5.0); Alkaline Phosphatase 189 U/L (45-117); Anion Gap 11 meq/L (5-15); Aspartate Aminotransferase 9 U/L (15-37); Blood Urea Nitrogen 11 mg/dL (7-18); Calcium 7.5 mg/dL (8.5-10.1); Carbon Dioxide 26.2 meq/L (21.0-32.0); Chloride 91 meq/L (98-107); Glomerular Filtration Rate 54 mL/min (>89); Glucose,Random 307 mg/dL (74-106); Sodium 128 meq/L (136-145); Total Protein 6.3 g/dL (6.4-8.2)
[2017-08-22 05:24] LABS: Potassium 2.9 meq/L (3.5-5.1)
[2017-08-22] MEDS: Senna/Docusate Sodium 8.6/50 MG Tablet PO SCH ×2 (08:30→20:14)
[2017-08-22] MEDS: Insulin Detemir Inj 1,000 UNIT/10 ML Vial SQ SCH ×2 (08:31→20:14)
[2017-08-22 08:50] LABS: Amphetamine Screen,Urine Neg (Neg); Barbiturate Screen,Urine Neg (Neg); Cannabinoid Screen,Urine Neg (Neg); Cocaine Screen,Urine Neg (Neg); Opiate Screen,Urine Neg (Neg)
[2017-08-22] MEDS: Heparin - SQ 10,000 UNITS/ML Vial SQ SCH (09:38)
[2017-08-22] MEDS: Vancomycin Inj 1,500 MG in Sodium Chlor 0.9% Inj 500 ML IV.SIG SCH (11:11)
[2017-08-22] MEDS ORDERED: Naloxone Inj 0.4 MG/ML Vial IV.PUSH PRN (11:54)
[2017-08-22] MEDS ORDERED: Acetaminophen 325 MG Tablet PO PRN (11:54)
--- NOTE | 2017-08-22 13:39 | P.CON ---
History of Present Illness Service: Foot and ankle surgery/podiatry Consult date: 08/22/17 Reason for Consult: Right heel ulcer Primary Care Provider: No Primary Care Physician Family Provider: No Primary Care Physician Chief Complaint: Weakness. History of Present Illness: Podiatry consulted for this 52-year-old female chronic right heel ulcer who is an insulin-dependent diabetic for who presented to the ED with a 1 day history of extreme weakness and ability to walk. Patient was given antibiotics when she was discharged from the ED about 2 weeks ago however she is unable to afford them and she did not pick them up. She is also been out of her insulin for about a week. Patient denies nay N,V,F,Ch. She states she noticed the heel ulcer about 4 weeks ago. She has not been walking on it because it was very painful. Review of Systems Constitutional: Denies body ache(s), Denies chills, Denies fever(s) Eyes: Denies blind spots Ears, Nose, Mouth, and Throat: Denies abnormal hearing Cardiovascular: Denies chest pain Gastrointestinal: Denies abdominal pain PMFSH - History History Provided By: Patient, Medical Record - Medical History Medical History: Medical History (Last Reviewed 08/22/17 @ 06:24 by Carlyn Ennis) Benign hypertension Diabetes Hepatitis C virus - Surgical History Surgical History: Surgical History (Last Reviewed 08/22/17 @ 06:24 by Carlyn Ennis) Previous section - Tobacco History Second Hand Smoke Exposure: No Tobacco Use In Past 30 Days: Yes Smoking Status: Current every day smoker Tobacco Type: Cigarettes - Alcohol History How Often Do You Have a Drink Containing Alcohol: Never - Substance Use History Substance History: No History of Abuse - Immunization History Tetanus Immunization: Unable to Assess Hx Influenza Vaccine This Season: No Medications and Allergies Active Medications: Active Medications Acetaminophen (Tylenol) 650 mg PO Q6H PRN PRN Reason: PAIN SCALE 1 TO 2 Hydrocodone Bitart/Acetaminophen ([place] 5/325) 1 tab PO Q4H PRN PRN Reason: PAIN SCALE 3 TO 5 Last Admin: 08/22/17 13:04 Dose: 1 tab Hydrocodone Bitart/Acetaminophen ([place] 7.5/325) 1 tab PO Q4H PRN PRN Reason: PAIN SCALE 6 TO 10 Al Hydroxide/Mg Hydroxide (Milk Of Magnesia Liq) 30 ml PO Q12H PRN PRN Reason: Mild Constipation Bisacodyl (Dulcolax Supp) 10 mg RECTAL DAILY PRN PRN Reason: SEVERE CONSITIPATION Heparin Sodium (Porcine) (Heparin Inj) 5,000 units SQ Q12H [facility] Last Admin: 08/22/17 09:38 Dose: 5,000 units Potassium Chloride/Sodium Chloride (Ns + Kcl 20 Meq Inj) 1,000 mls @ 42 mls/hr IV.CONT .[id number] ONE Stop: 08/22/17 20:44 Last Admin: 08/21/17 22:14 Dose: 42 mls/hr Pharmacy Profile Note (Vancomycin Consult Pharmacy) 0 mls @ 0 mls/hr OTHER UNSCH [facility] Piperacillin/Tazobactam/Dextrose (Zosyn 3.375 Gm Premix) 50 mls @ 100 mls/hr IV.SIG Q6H [facility] Last Infusion: 08/22/17 10:21 Dose: Infused Vancomycin HCl 1,500 mg/ (Sodium Chloride) 515 mls @ 250 mls/hr IV.SIG Q24H [facility] Last Admin: 08/22/17 11:11 Dose: 250 mls/hr Insulin Aspart (Novolog Inj) 10 units SQ TIDAC [facility]; Protocol Last Admin: 08/22/17 13:04 Dose: Not Given Insulin Detemir (Levemir Inj) 20 unit SQ BID [facility] Last Admin: 08/22/17 08:31 Dose: 20 unit Lactulose (Lactulose Liq) 30 ml PO DAILY PRN PRN Reason: SEVERE CONSITIPATION Miscellaneous Information ([facility] Ordered Lab Info) 0 each OTHER ONCE ONE Stop: 08/25/17 10:46 Naloxone HCl (Narcan Inj) 0.4 mg IV.PUSH UNSCH PRN PRN Reason: SEE LABEL COMMENTS Senna/Docusate Sodium (Belinda-Colace) 1 tab PO BID [facility] Last Admin: 08/22/17 08:30 Dose: 1 tab Sennosides (Senokot) 17.2 mg PO Q12H PRN PRN Reason: Moderate Constipation Temazepam (Restoril) 15 mg PO HS PRN PRN Reason: INSOMNIA Last Admin: 08/22/17 02:07 Dose: 15 mg Allergies Allergy/AdvReac Type Severity Reaction Status Date / Time No Known Allergies Allergy Unverified 08/02/17 06:11 Home Medications Medication Instructions Recorded Confirmed Type insulin detemir U-100 [Levemir 20 unit SUB-Q BID 08/22/17 08/22/17 History U-100 Insulin] Physical Exam Vital signs: Vital Signs 08/21/17 19:27 08/21/17 21:21 08/21/17 21:51 Temperature 97.7 F Pulse Rate 84 85 Respiratory Rate 16 16 Blood Pressure 115/60 111/68 Pulse Oximetry 100 96 08/22/17 01:21 08/22/17 04:00 08/22/17 06:16 Temperature 98.0 F 98.1 F Pulse Rate 88 80 Respiratory Rate 16 22 Blood Pressure 111/68 118/59 L Pulse Oximetry 92 L 08/22/17 06:52 08/22/17 08:00 08/22/17 08:15 Temperature 97.7 F 97.7 F Pulse Rate 80 83 92 H Respiratory Rate 19 19 Blood Pressure 118/59 L 118/59 L Pulse Oximetry 92 L 08/22/17 08:53 08/22/17 08:54 08/22/17 08:55 Temperature Pulse Rate 94 H 95 H 93 H Respiratory Rate 28 H 47 H 34 H Blood Pressure Pulse Oximetry 89 L 83 L 86 L 08/22/17 08:56 08/22/17 08:57 08/22/17 08:58 Temperature Pulse Rate 92 H 93 H 92 H Respiratory Rate 37 H 33 H 20 Blood Pressure Pulse Oximetry 92 L 89 L 94 L 08/22/17 08:59 08/22/17 09:00 08/22/17 09:01 Temperature Pulse Rate 92 H 83 93 H Respiratory Rate 27 H 45 H 24 Blood Pressure 115/92 H Pulse Oximetry 92 L 90 L 93 L 08/22/17 09:02 08/22/17 09:03 08/22/17 09:04 Temperature Pulse Rate 93 H 93 H 94 H Respiratory Rate 28 H 28 H 31 H Blood Pressure Pulse Oximetry 91 L 90 L 93 L 08/22/17 09:05 08/22/17 09:06 08/22/17 09:07 Temperature Pulse Rate 93 H 92 H 92 H Respiratory Rate 26 H 34 H 25 H Blood Pressure Pulse Oximetry 92 L 94 L 94 L 08/22/17 09:08 08/22/17 09:09 08/22/17 09:10 Temperature Pulse Rate 92 H 93 H 92 H Respiratory Rate 24 33 H 28 H Blood Pressure Pulse Oximetry 94 L 94 L 94 L 08/22/17 09:11 08/22/17 09:12 08/22/17 09:13 Temperature Pulse Rate 92 H 91 H 91 H Respiratory Rate 26 H 30 H 21 Blood Pressure Pulse Oximetry 94 L 93 L 94 L 08/22/17 09:14 08/22/17 09:15 08/22/17 09:16 Temperature Pulse Rate 91 H 90 91 H Respiratory Rate 28 H 29 H 37 H Blood Pressure Pulse Oximetry 94 L 92 L 92 L 08/22/17 09:17 08/22/17 09:18 08/22/17 09:19 Temperature Pulse Rate 93 H 92 H 92 H Respiratory Rate 31 H 25 H 24 Blood Pressure Pulse Oximetry 86 L 91 L 95 08/22/17 09:20 08/22/17 09:21 08/22/17 09:22 Temperature Pulse Rate 93 H 92 H 92 H Respiratory Rate 23 28 H 24 Blood Pressure Pulse Oximetry 94 L 94 L 94 L 08/22/17 09:23 08/22/17 09:24 08/22/17 09:25 Temperature Pulse Rate 93 H 94 H 95 H Respiratory Rate 35 H 22 25 H Blood Pressure Pulse Oximetry 94 L 93 L 94 L 08/22/17 09:26 08/22/17 09:27 08/22/17 09:28 Temperature Pulse Rate 93 H 93 H 96 H Respiratory Rate 24 26 H 30 H Blood Pressure Pulse Oximetry 93 L 94 L 92 L 08/22/17 09:29 08/22/17 09:30 08/22/17 09:31 Temperature Pulse Rate 95 H 93 H 91 H Respiratory Rate 21 20 28 H Blood Pressure 130/72 Pulse Oximetry 91 L 92 L 93 L 08/22/17 09:32 08/22/17 09:33 08/22/17 09:34 Temperature Pulse Rate 97 H 97 H 97 H Respiratory Rate 31 H 25 H 17 Blood Pressure Pulse Oximetry 78 L 93 L 93 L 08/22/17 09:35 08/22/17 09:36 08/22/17 09:37 Temperature Pulse Rate 94 H 96 H 98 H Respiratory Rate 24 37 H 36 H Blood Pressure Pulse Oximetry 96 92 L 96 08/22/17 09:38 08/22/17 09:39 08/22/17 09:40 Temperature Pulse Rate 96 H 94 H 92 H Respiratory Rate 29 H 26 H 22 Blood Pressure Pulse Oximetry 93 L 95 92 L 08/22/17 09:41 08/22/17 09:42 08/22/17 09:43 Temperature Pulse Rate 92 H 93 H 92 H Respiratory Rate 21 25 H 20 Blood Pressure 91/53 L Pulse Oximetry 93 L 95 94 L 08/22/17 09:44 08/22/17 09:45 08/22/17 09:46 Temperature Pulse Rate 91 H 90 91 H Respiratory Rate 21 22 19 Blood Pressure 92/60 L Pulse Oximetry 94 L 94 L 94 L 08/22/17 09:47 08/22/17 09:48 08/22/17 09:49 Temperature Pulse Rate 92 H 92 H 91 H Respiratory Rate 25 H 13 22 Blood Pressure Pulse Oximetry 95 94 L 93 L 08/22/17 09:50 08/22/17 09:51 08/22/17 09:52 Temperature Pulse Rate 91 H 92 H 91 H Respiratory Rate 11 L 6 L 20 Blood Pressure Pulse Oximetry 93 L 93 L 94 L 08/22/17 09:53 08/22/17 09:54 08/22/17 09:55 Temperature Pulse Rate 91 H 93 H 92 H Respiratory Rate 21 26 H 25 H Blood Pressure Pulse Oximetry 93 L 98 99 08/22/17 09:56 08/22/17 09:57 08/22/17 09:58 Temperature Pulse Rate 92 H 92 H 92 H Respiratory Rate 20 20 20 Blood Pressure Pulse Oximetry 99 99 99 08/22/17 09:59 08/22/17 10:00 08/22/17 10:01 Temperature Pulse Rate 92 H 92 H 92 H Respiratory Rate 20 18 20 Blood Pressure 113/74 Pulse Oximetry 100 100 100 08/22/17 10:02 08/22/17 10:38 08/22/17 10:39 Temperature Pulse Rate 91 H 85 85 Respiratory Rate 20 19 18 Blood Pressure Pulse Oximetry 100 95 95 08/22/17 10:40 08/22/17 10:41 08/22/17 10:42 Temperature Pulse Rate 85 86 86 Respiratory Rate 18 18 19 Blood Pressure Pulse Oximetry 95 96 96 08/22/17 10:43 08/22/17 10:44 08/22/17 10:45 Temperature Pulse Rate 86 86 86 Respiratory Rate 19 20 19 Blood Pressure 110/65 Pulse Oximetry 96 96 95 08/22/17 10:46 08/22/17 10:47 08/22/17 10:48 Temperature Pulse Rate 85 85 84 Respiratory Rate 18 18 18 Blood Pressure Pulse Oximetry 95 95 95 08/22/17 10:49 08/22/17 10:50 08/22/17 10:51 Temperature Pulse Rate 84 86 88 Respiratory Rate 18 18 20 Blood Pressure Pulse Oximetry 95 96 95 08/22/17 10:52 08/22/17 10:53 08/22/17 10:54 Temperature Pulse Rate 86 86 86 Respiratory Rate 17 18 18 Blood Pressure Pulse Oximetry 95 95 95 08/22/17 10:55 08/22/17 10:56 08/22/17 10:57 Temperature Pulse Rate 85 81 87 Respiratory Rate 17 6 L 16 Blood Pressure Pulse Oximetry 94 L 86 L 95 08/22/17 10:58 08/22/17 10:59 08/22/17 11:00 Temperature Pulse Rate 85 84 82 Respiratory Rate 8 L 17 14 Blood Pressure 93/57 L Pulse Oximetry 95 92 L 92 L 08/22/17 11:01 08/22/17 11:02 08/22/17 11:03 Temperature Pulse Rate 82 83 82 Respiratory Rate 11 L 13 14 Blood Pressure Pulse Oximetry 92 L 93 L 92 L 08/22/17 11:04 08/22/17 11:05 08/22/17 11:06 Temperature Pulse Rate 84 85 84 Respiratory Rate 15 15 18 Blood Pressure Pulse Oximetry 93 L 98 94 L 08/22/17 11:07 08/22/17 11:08 08/22/17 11:09 Temperature Pulse Rate 88 87 91 H Respiratory Rate 16 19 16 Blood Pressure Pulse Oximetry 99 98 98 08/22/17 11:10 08/22/17 11:11 08/22/17 11:12 Temperature Pulse Rate 92 H 92 H 92 H Respiratory Rate 19 19 18 Blood Pressure Pulse Oximetry 97 96 94 L 08/22/17 11:13 08/22/17 11:14 08/22/17 11:15 Temperature Pulse Rate 92 H 91 H 91 H Respiratory Rate 28 H 22 21 Blood Pressure 99/60 L Pulse Oximetry 94 L 95 95 08/22/17 11:16 08/22/17 11:17 08/22/17 11:18 Temperature Pulse Rate 91 H 93 H 93 H Respiratory Rate 21 20 23 Blood Pressure Pulse Oximetry 95 96 95 08/22/17 11:19 08/22/17 11:20 08/22/17 11:21 Temperature Pulse Rate 93 H 94 H 93 H Respiratory Rate 27 H 24 20 Blood Pressure Pulse Oximetry 94 L 94 L 94 L 08/22/17 11:22 08/22/17 11:23 08/22/17 11:24 Temperature Pulse Rate 96 H 99 H 97 H Respiratory Rate 24 30 H 34 H Blood Pressure Pulse Oximetry 94 L 95 97 Intake & Output 08/21/17 08/22/17 08/22/17 18:59 06:59 18:59 Intake Total 50 / 50 100 / 100 Output Total 700 / 700 Balance -650 / -650 100 / 100 Weight 77 kg Intake: IV 50 / 50 100 / 100 Zosyn 3.375 GM Premix 50 ML @ 50 / 50 100 / 100 100 mls/hr IV.SIG Q6H [facility] Rx#: [id number] KCl 10 mEq Premix Inj 10 meq In 0 / 0 100 ml @ 100 mls/hr IV.SIG Q1H [facility] Rx#:[id number] Output: Urine Amount (Catheter) 700 / 700 Straight 700 / 700 Other: Weight On Admission 77 kg Narrative: GENERAL: This is a well-nourished, well-developed patient, in no apparent distress. SKIN: Right posterior heel ulcer HEAD: Atraumatic. EYES: Pupils equal round and reactive. ENT: Airway patent. NECK: Trachea midline. RESPIRATORY: Nonlabored breathing. MUSCULOSKELETAL:. Negative Homans sign bilaterally. NEUROLOGICAL: Awake and alert. Normal speech. Lower extremity physical exam: Vascular: Dorsalis pedis 2/4, posterior tibial nonpalpable. Capillary refill time within normal limits to digits 5 bilateral foot. Edema present right foot and ankle Neuro: Gross sensation intact to bilateral lower extremity. Pinpoint sensation decreased. No hyperalgesia noted to bilateral lower extremity Dermatology: Right heel ulcer with fibro necrotic base and hyperkeratotic borders. No fluctuance or crepitance noted. No malodor noted. Musculoskeletal: Tender to palpation to right posterior heel ulcer. - Urinary Catheter Management Straight Cath placed during this visit: yes Reason for continuing: Not indwelling catheter Insertion date: 08/21/17 Assessment and Plan - Plan 52-year-old female with right posterior heel ulcer Patient examined and evaluated with all questions answered X-rays negative for osteomyelitis Full-thickness excisional debridement performed to right heel Dressing placed Will place nursing wound care orders Patient will need wound care center follow-up upon discharge without this she is at significant risk for limb loss Will place case management consult for wound care center follow-up Procedure in detail: Nurse present bedside, timeout performed identifying patient with 2 identifying factors. Consent signed and obtained for right foot posterior heel debridement. Full-thickness excisional debridement to subcutaneous tissue performed. Right heel wound dressed with dry sterile dressing.
--- NOTE | 2017-08-22 16:45 | P.PNIM ---
Subjective Interval history: Complaining of continued severe heel pain. Reports of redness and black areas has not changed overnight. Physical Exam Vital signs: Vital Signs 08/21/17 19:27 08/21/17 21:21 08/21/17 21:51 Temperature 97.7 F Pulse Rate 84 85 Respiratory Rate 16 16 Blood Pressure 115/60 111/68 Pulse Oximetry 100 96 08/22/17 01:21 08/22/17 04:00 08/22/17 06:16 Temperature 98.0 F 98.1 F Pulse Rate 88 80 Respiratory Rate 16 22 Blood Pressure 111/68 118/59 L Pulse Oximetry 92 L 08/22/17 06:52 08/22/17 08:00 08/22/17 08:15 Temperature 97.7 F 97.7 F Pulse Rate 80 83 92 H Respiratory Rate 19 19 Blood Pressure 118/59 L 118/59 L Pulse Oximetry 92 L 08/22/17 08:53 08/22/17 08:54 08/22/17 08:55 Temperature Pulse Rate 94 H 95 H 93 H Respiratory Rate 28 H 47 H 34 H Blood Pressure Pulse Oximetry 89 L 83 L 86 L 08/22/17 08:56 08/22/17 08:57 08/22/17 08:58 Temperature Pulse Rate 92 H 93 H 92 H Respiratory Rate 37 H 33 H 20 Blood Pressure Pulse Oximetry 92 L 89 L 94 L 08/22/17 08:59 08/22/17 09:00 08/22/17 09:01 Temperature Pulse Rate 92 H 83 93 H Respiratory Rate 27 H 45 H 24 Blood Pressure 115/92 H Pulse Oximetry 92 L 90 L 93 L 08/22/17 09:02 08/22/17 09:03 08/22/17 09:04 Temperature Pulse Rate 93 H 93 H 94 H Respiratory Rate 28 H 28 H 31 H Blood Pressure Pulse Oximetry 91 L 90 L 93 L 08/22/17 09:05 08/22/17 09:06 08/22/17 09:07 Temperature Pulse Rate 93 H 92 H 92 H Respiratory Rate 26 H 34 H 25 H Blood Pressure Pulse Oximetry 92 L 94 L 94 L 08/22/17 09:08 08/22/17 09:09 08/22/17 09:10 Temperature Pulse Rate 92 H 93 H 92 H Respiratory Rate 24 33 H 28 H Blood Pressure Pulse Oximetry 94 L 94 L 94 L 08/22/17 09:11 08/22/17 09:12 08/22/17 09:13 Temperature Pulse Rate 92 H 91 H 91 H Respiratory Rate 26 H 30 H 21 Blood Pressure Pulse Oximetry 94 L 93 L 94 L 08/22/17 09:14 08/22/17 09:15 08/22/17 09:16 Temperature Pulse Rate 91 H 90 91 H Respiratory Rate 28 H 29 H 37 H Blood Pressure Pulse Oximetry 94 L 92 L 92 L 08/22/17 09:17 08/22/17 09:18 08/22/17 09:19 Temperature Pulse Rate 93 H 92 H 92 H Respiratory Rate 31 H 25 H 24 Blood Pressure Pulse Oximetry 86 L 91 L 95 08/22/17 09:20 08/22/17 09:21 08/22/17 09:22 Temperature Pulse Rate 93 H 92 H 92 H Respiratory Rate 23 28 H 24 Blood Pressure Pulse Oximetry 94 L 94 L 94 L 08/22/17 09:23 08/22/17 09:24 08/22/17 09:25 Temperature Pulse Rate 93 H 94 H 95 H Respiratory Rate 35 H 22 25 H Blood Pressure Pulse Oximetry 94 L 93 L 94 L 08/22/17 09:26 08/22/17 09:27 08/22/17 09:28 Temperature Pulse Rate 93 H 93 H 96 H Respiratory Rate 24 26 H 30 H Blood Pressure Pulse Oximetry 93 L 94 L 92 L 08/22/17 09:29 08/22/17 09:30 08/22/17 09:31 Temperature Pulse Rate 95 H 93 H 91 H Respiratory Rate 21 20 28 H Blood Pressure 130/72 Pulse Oximetry 91 L 92 L 93 L 08/22/17 09:32 08/22/17 09:33 08/22/17 09:34 Temperature Pulse Rate 97 H 97 H 97 H Respiratory Rate 31 H 25 H 17 Blood Pressure Pulse Oximetry 78 L 93 L 93 L 08/22/17 09:35 08/22/17 09:36 08/22/17 09:37 Temperature Pulse Rate 94 H 96 H 98 H Respiratory Rate 24 37 H 36 H Blood Pressure Pulse Oximetry 96 92 L 96 08/22/17 09:38 08/22/17 09:39 08/22/17 09:40 Temperature Pulse Rate 96 H 94 H 92 H Respiratory Rate 29 H 26 H 22 Blood Pressure Pulse Oximetry 93 L 95 92 L 08/22/17 09:41 08/22/17 09:42 08/22/17 09:43 Temperature Pulse Rate 92 H 93 H 92 H Respiratory Rate 21 25 H 20 Blood Pressure 91/53 L Pulse Oximetry 93 L 95 94 L 08/22/17 09:44 08/22/17 09:45 08/22/17 09:46 Temperature Pulse Rate 91 H 90 91 H Respiratory Rate 21 22 19 Blood Pressure 92/60 L Pulse Oximetry 94 L 94 L 94 L 08/22/17 09:47 08/22/17 09:48 08/22/17 09:49 Temperature Pulse Rate 92 H 92 H 91 H Respiratory Rate 25 H 13 22 Blood Pressure Pulse Oximetry 95 94 L 93 L 08/22/17 09:50 08/22/17 09:51 08/22/17 09:52 Temperature Pulse Rate 91 H 92 H 91 H Respiratory Rate 11 L 6 L 20 Blood Pressure Pulse Oximetry 93 L 93 L 94 L 08/22/17 09:53 08/22/17 09:54 08/22/17 09:55 Temperature Pulse Rate 91 H 93 H 92 H Respiratory Rate 21 26 H 25 H Blood Pressure Pulse Oximetry 93 L 98 99 08/22/17 09:56 08/22/17 09:57 08/22/17 09:58 Temperature Pulse Rate 92 H 92 H 92 H Respiratory Rate 20 20 20 Blood Pressure Pulse Oximetry 99 99 99 08/22/17 09:59 08/22/17 10:00 08/22/17 10:01 Temperature Pulse Rate 92 H 92 H 92 H Respiratory Rate 20 18 20 Blood Pressure 113/74 Pulse Oximetry 100 100 100 08/22/17 10:02 08/22/17 10:38 08/22/17 10:39 Temperature Pulse Rate 91 H 85 85 Respiratory Rate 20 19 18 Blood Pressure Pulse Oximetry 100 95 95 08/22/17 10:40 08/22/17 10:41 08/22/17 10:42 Temperature Pulse Rate 85 86 86 Respiratory Rate 18 18 19 Blood Pressure Pulse Oximetry 95 96 96 08/22/17 10:43 08/22/17 10:44 08/22/17 10:45 Temperature Pulse Rate 86 86 86 Respiratory Rate 19 20 19 Blood Pressure 110/65 Pulse Oximetry 96 96 95 08/22/17 10:46 08/22/17 10:47 08/22/17 10:48 Temperature Pulse Rate 85 85 84 Respiratory Rate 18 18 18 Blood Pressure Pulse Oximetry 95 95 95 08/22/17 10:49 08/22/17 10:50 08/22/17 10:51 Temperature Pulse Rate 84 86 88 Respiratory Rate 18 18 20 Blood Pressure Pulse Oximetry 95 96 95 08/22/17 10:52 08/22/17 10:53 08/22/17 10:54 Temperature Pulse Rate 86 86 86 Respiratory Rate 17 18 18 Blood Pressure Pulse Oximetry 95 95 95 08/22/17 10:55 08/22/17 10:56 08/22/17 10:57 Temperature Pulse Rate 85 81 87 Respiratory Rate 17 6 L 16 Blood Pressure Pulse Oximetry 94 L 86 L 95 08/22/17 10:58 08/22/17 10:59 08/22/17 11:00 Temperature Pulse Rate 85 84 82 Respiratory Rate 8 L 17 14 Blood Pressure 93/57 L Pulse Oximetry 95 92 L 92 L 08/22/17 11:01 08/22/17 11:02 08/22/17 11:03 Temperature Pulse Rate 82 83 82 Respiratory Rate 11 L 13 14 Blood Pressure Pulse Oximetry 92 L 93 L 92 L 08/22/17 11:04 08/22/17 11:05 08/22/17 11:06 Temperature Pulse Rate 84 85 84 Respiratory Rate 15 15 18 Blood Pressure Pulse Oximetry 93 L 98 94 L 08/22/17 11:07 08/22/17 11:08 08/22/17 11:09 Temperature Pulse Rate 88 87 91 H Respiratory Rate 16 19 16 Blood Pressure Pulse Oximetry 99 98 98 08/22/17 11:10 08/22/17 11:11 08/22/17 11:12 Temperature Pulse Rate 92 H 92 H 92 H Respiratory Rate 19 19 18 Blood Pressure Pulse Oximetry 97 96 94 L 08/22/17 11:13 08/22/17 11:14 08/22/17 11:15 Temperature Pulse Rate 92 H 91 H 91 H Respiratory Rate 28 H 22 21 Blood Pressure 99/60 L Pulse Oximetry 94 L 95 95 08/22/17 11:16 08/22/17 11:17 08/22/17 11:18 Temperature Pulse Rate 91 H 93 H 93 H Respiratory Rate 21 20 23 Blood Pressure Pulse Oximetry 95 96 95 08/22/17 11:19 07/04/18 11:20 08/22/17 11:21 Temperature Pulse Rate 93 H 94 H 93 H Respiratory Rate 27 H 24 20 Blood Pressure Pulse Oximetry 94 L 94 L 94 L 08/22/17 11:22 08/22/17 11:23 08/22/17 11:24 Temperature Pulse Rate 96 H 99 H 97 H Respiratory Rate 24 30 H 34 H Blood Pressure Pulse Oximetry 94 L 95 97 08/22/17 12:00 08/22/17 14:56 08/22/17 14:57 Temperature 98.6 F Pulse Rate 87 89 Respiratory Rate 21 20 Blood Pressure Pulse Oximetry 99 99 08/22/17 14:58 08/22/17 14:59 08/22/17 15:00 Temperature Pulse Rate 88 87 88 Respiratory Rate 19 19 17 Blood Pressure Pulse Oximetry 99 98 99 08/22/17 15:01 08/22/17 15:02 08/22/17 15:03 Temperature Pulse Rate 88 89 93 H Respiratory Rate 18 19 23 Blood Pressure Pulse Oximetry 99 99 100 08/22/17 15:04 08/22/17 15:05 08/22/17 15:06 Temperature Pulse Rate 92 H 90 89 Respiratory Rate 24 19 19 Blood Pressure Pulse Oximetry 100 99 97 08/22/17 15:07 08/22/17 15:08 08/22/17 15:09 Temperature Pulse Rate 89 87 88 Respiratory Rate 20 19 19 Blood Pressure Pulse Oximetry 97 97 97 08/22/17 15:10 08/22/17 15:11 08/22/17 15:12 Temperature Pulse Rate 87 86 86 Respiratory Rate 19 17 20 Blood Pressure Pulse Oximetry 97 97 97 08/22/17 15:13 08/22/17 15:14 08/22/17 15:15 Temperature Pulse Rate 86 86 86 Respiratory Rate 20 21 19 Blood Pressure Pulse Oximetry 97 97 98 08/22/17 15:16 08/22/17 15:17 08/22/17 15:18 Temperature Pulse Rate 85 85 85 Respiratory Rate 19 20 22 Blood Pressure Pulse Oximetry 98 97 97 08/22/17 15:19 08/22/17 15:20 08/22/17 15:21 Temperature Pulse Rate 86 85 85 Respiratory Rate 19 30 H 18 Blood Pressure Pulse Oximetry 97 97 97 08/22/17 15:22 08/22/17 15:23 08/22/17 15:24 Temperature Pulse Rate 86 86 86 Respiratory Rate 19 19 21 Blood Pressure Pulse Oximetry 97 98 98 08/22/17 15:25 08/22/17 15:26 08/22/17 15:27 Temperature Pulse Rate 85 86 84 Respiratory Rate 19 18 19 Blood Pressure Pulse Oximetry 97 97 97 08/22/17 15:28 08/22/17 15:29 08/22/17 15:30 Temperature Pulse Rate 85 84 85 Respiratory Rate 18 18 17 Blood Pressure Pulse Oximetry 97 97 97 08/22/17 15:31 08/22/17 15:32 08/22/17 15:33 Temperature Pulse Rate 85 85 84 Respiratory Rate 17 18 18 Blood Pressure Pulse Oximetry 97 97 96 08/22/17 15:34 08/22/17 15:35 08/22/17 15:36 Temperature Pulse Rate 84 84 84 Respiratory Rate 17 18 17 Blood Pressure Pulse Oximetry 96 96 97 08/22/17 15:37 08/22/17 15:38 08/22/17 15:39 Temperature Pulse Rate 86 85 85 Respiratory Rate 16 23 21 Blood Pressure Pulse Oximetry 99 99 98 08/22/17 15:40 08/22/17 15:41 08/22/17 15:42 Temperature Pulse Rate 85 85 83 Respiratory Rate 18 20 13 Blood Pressure Pulse Oximetry 97 97 98 08/22/17 15:43 08/22/17 15:44 08/22/17 15:45 Temperature Pulse Rate 83 83 83 Respiratory Rate 15 14 19 Blood Pressure Pulse Oximetry 98 97 97 Intake & Output 08/21/17 08/22/17 08/22/17 18:59 06:59 18:59 Intake Total 50 / 50 100 / 100 Output Total 700 / 700 Balance -650 / -650 100 / 100 Weight 77 kg Intake: IV 50 / 50 100 / 100 Zosyn 3.375 GM Premix 50 ML @ 50 / 50 100 / 100 100 mls/hr IV.SIG Q6H RICARDO Rx#: [id number] KCl 10 mEq Premix Inj 10 meq In 0 / 0 100 ml @ 100 mls/hr IV.SIG Q1H RICARDO Rx#:[id number] Output: Urine Amount (Catheter) 700 / 700 Straight 700 / 700 Other: Weight On Admission 77 kg Narrative: GENERAL: This is a well-nourished, well-developed patient, in no apparent distress. CARDIOVASCULAR: Regular rate and rhythm without murmurs, gallops, or rubs. RESPIRATORY: Clear to auscultation. Breath sounds equal bilaterally. No wheezes , rales, or rhonchi. GASTROINTESTINAL: Abdomen soft, non-tender, nondistended. Normal active bowel sounds MUSCULOSKELETAL: Extremities without clubbing, cyanosis, or edema. NEURO: Alert & Oriented x4 to person, place, time, situation. Moves all ext x4 Right heel: Black gangrenous changes with surrounding erythema and excoriation - Urinary Catheter Management Straight Cath placed during this visit: yes Reason for continuing: Not indwelling catheter Insertion date: 08/21/17 Results - Labs CBC & Chem 7: 08/22/17 03:00 08/22/17 03:00 Laboratory Results - last 24 hr 08/21/17 08/21/17 08/21/17 19:25 19:25 19:25 WBC 25.3 H RBC 3.47 L Hgb 9.9 L Hct 28.8 L MCV 83.0 MCH 28.5 MCHC 34.4 RDW 12.9 Plt Count 220 MPV 10.0 Neut % (Auto) 85.0 H Lymph % (Auto) 11.5 Woods % (Auto) 3.0 Eos % (Auto) 0.1 Baso % (Auto) 0.4 Neut # (Auto) 21.5 H Lymph # (Auto) 2.9 Woods # (Auto) 0.8 Eos # (Auto) 0.0 Baso # (Auto) 0.1 WBC Differential . Differential Comment Auto diff final PT 11.8 H INR 1.2 APTT 28.5 Sodium 121 L* Potassium 2.6 L* Chloride 81 L Carbon Dioxide 26.9 Anion Gap 13 BUN 11 Creatinine 1.14 H Estimated GFR 50 L POC Glucose Random Glucose 398 H Lactic Acid Calcium 8.2 L Magnesium Total Bilirubin 0.5 AST 14 L ALT 9 L Alkaline Phosphatase 224 H Total Protein 7.4 Albumin 1.8 L Beta-Hydroxybutyric Acd 0.32 Urine Color Urine Clarity Urine pH Ur Specific [place] Urine Protein Urine Glucose (UA) Urine Ketones Urine Occult Blood Urine Nitrate Urine Bilirubin Urine Urobilinogen Ur Leukocyte Esterase Urine RBC Urine WBC Ur Squamous Epith Cells Amorphous Sediment Micro UA Comment Urine Culture Comments Nasal Screen MRSA (PCR) Urine Opiates Screen Ur Barbiturates Screen Ur Amphetamines Screen U Benzodiazepines Scrn Urine Cocaine Screen U Cannabinoids Screen 08/21/17 08/21/17 08/21/17 19:25 19:25 19:28 WBC RBC Hgb Hct MCV MCH MCHC RDW Plt Count MPV Neut % (Auto) Lymph % (Auto) Woods % (Auto) Eos % (Auto) Baso % (Auto) Neut # (Auto) Lymph # (Auto) [place] # (Auto) Eos # (Auto) Baso # (Auto) WBC Differential Differential Comment PT INR APTT Sodium Potassium Chloride Carbon Dioxide Anion Gap BUN Creatinine Estimated GFR POC Glucose 479 H* Random Glucose Lactic Acid 1.9 Calcium Magnesium Total Bilirubin AST ALT Alkaline Phosphatase Total Protein Albumin Beta-Hydroxybutyric Acd Cancelled Urine Color Urine Clarity Urine pH Ur Specific [place] Urine Protein Urine Glucose (UA) Urine Ketones Urine Occult Blood Urine Nitrate Urine Bilirubin Urine Urobilinogen Ur Leukocyte Esterase Urine RBC Urine WBC Ur Squamous Epith Cells Amorphous Sediment Micro UA Comment Urine Culture Comments Nasal Screen MRSA (PCR) Urine Opiates Screen Ur Barbiturates Screen Ur Amphetamines Screen U Benzodiazepines Scrn Urine Cocaine Screen U Cannabinoids Screen 08/21/17 08/21/17 08/22/17 21:25 21:45 03:00 WBC RBC Hgb Hct MCV MCH MCHC RDW Plt Count MPV Neut % (Auto) Lymph % (Auto) Woods % (Auto) Eos % (Auto) Baso % (Auto) Neut # (Auto) Lymph # (Auto) [place] # (Auto) Eos # (Auto) Baso # (Auto) WBC Differential Differential Comment PT INR APTT Sodium Potassium Chloride Carbon Dioxide Anion Gap BUN Creatinine Estimated GFR POC Glucose Random Glucose Lactic Acid Calcium Magnesium 1.9 Total Bilirubin AST ALT Alkaline Phosphatase Total Protein Albumin Beta-Hydroxybutyric Acd Urine Color Yellow Urine Clarity Hazy H Urine pH 5.0 Ur Specific [place] 1.015 Urine Protein 30 H Urine Glucose (UA) 500 or greater Urine Ketones Negative Urine Occult Blood Moderate H Urine Nitrate Negative Urine Bilirubin Negative Urine Urobilinogen Less than 2 Ur Leukocyte Esterase Negative Urine RBC 1 Urine WBC 1 Ur Squamous Epith Cells 2 Amorphous Sediment Rare H Micro UA Comment Cath-culture not ind Urine Culture Comments Cath-cult not ind Nasal Screen MRSA (PCR) Urine Opiates Screen Neg Ur Barbiturates Screen Neg Ur Amphetamines Screen Neg U Benzodiazepines Scrn Neg Urine Cocaine Screen Neg U Cannabinoids Screen Neg 08/22/17 08/22/17 08/22/17 03:00 03:00 05:45 WBC 21.0 H RBC 2.93 L Hgb 8.5 L Hct 24.4 L MCV 83.4 MCH 29.1 MCHC 34.9 RDW 13.1 Plt Count 194 MPV 10.0 Neut % (Auto) 81.3 H Lymph % (Auto) 15.0 Woods % (Auto) 2.8 Eos % (Auto) 0.4 Baso % (Auto) 0.5 Neut # (Auto) 17.1 H Lymph # (Auto) 3.2 [place] # (Auto) 0.6 Eos # (Auto) 0.1 Baso # (Auto) 0.1 WBC Differential . Differential Comment Auto diff final PT INR APTT Sodium 128 L Potassium 2.9 L* Chloride 91 L D Carbon Dioxide 26.2 Anion Gap 11 BUN 11 Creatinine 1.07 H Estimated GFR 54 L POC Glucose Random Glucose 307 H Lactic Acid Calcium 7.5 L Magnesium Total Bilirubin 0.4 AST 9 L ALT 8 L Alkaline Phosphatase 189 H Total Protein 6.3 L D Albumin 1.6 L Beta-Hydroxybutyric Acd Urine Color Urine Clarity Urine pH Ur Specific [place] Urine Protein Urine Glucose (UA) Urine Ketones Urine Occult Blood Urine Nitrate Urine Bilirubin Urine Urobilinogen Ur Leukocyte Esterase Urine RBC Urine WBC Ur Squamous Epith Cells Amorphous Sediment Micro UA Comment Urine Culture Comments Nasal Screen MRSA (PCR) Mrsa detected Urine Opiates Screen Ur Barbiturates Screen Ur Amphetamines Screen U Benzodiazepines Scrn Urine Cocaine Screen U Cannabinoids Screen 08/22/17 08/22/17 07:59 11:08 WBC RBC Hgb Hct MCV MCH MCHC RDW Plt Count MPV Neut % (Auto) Lymph % (Auto) [place] % (Auto) Eos % (Auto) Baso % (Auto) Neut # (Auto) Lymph # (Auto) [place] # (Auto) Eos # (Auto) Baso # (Auto) WBC Differential Differential Comment PT INR APTT Sodium Potassium Chloride Carbon Dioxide Anion Gap BUN Creatinine Estimated GFR POC Glucose 434 H 575 H* Random Glucose Lactic Acid Calcium Magnesium Total Bilirubin AST ALT Alkaline Phosphatase Total Protein Albumin Beta-Hydroxybutyric Acd Urine Color Urine Clarity Urine pH Ur Specific [place] Urine Protein Urine Glucose (UA) Urine Ketones Urine Occult Blood Urine Nitrate Urine Bilirubin Urine Urobilinogen Ur Leukocyte Esterase Urine RBC Urine WBC Ur Squamous Epith Cells Amorphous Sediment Micro UA Comment Urine Culture Comments Nasal Screen MRSA (PCR) Urine Opiates Screen Ur Barbiturates Screen Ur Amphetamines Screen U Benzodiazepines Scrn Urine Cocaine Screen U Cannabinoids Screen Microbiology 08/21/17 19:25 Wound - Foot Gram Stain - Final 08/21/17 19:25 Wound - Foot Wound Culture - Preliminary S. aureus MRSA Group B beta Strep 08/21/17 19:25 Blood - Peripheral Aerobic Blood Culture - Preliminary No growth in 1 day 08/21/17 19:25 Blood - Peripheral Anaerobic Blood Culture - Preliminary No growth in 1 day 08/21/17 19:30 Blood - Peripheral Aerobic Blood Culture - Preliminary No growth in 1 day 08/21/17 19:30 Blood - Peripheral Anaerobic Blood Culture - Preliminary No growth in 1 day - Imaging Impressions Chest X-Ray 08/21/17 19:27 CONCLUSION: Negative examination. Foot X-Ray 08/21/17 20:40 CONCLUSION: Soft tissue defect overlying the heel. No radiographic evidence to clearly suggest osteomyelitis. Assessment and Plan - Plan 1. Sepsis present on admission due to leukocytosis and tachycardic with source of right diabetic foot infection Wound culture shows strep B and MRSA. Patient currently on IV Zosyn and IV vancomycinawait podiatry consultation and consideration for infectious disease consultation. 2. Right heel diabetic foot wound. //Osteomyelitis = Although x-ray does not indicate osteo-myelitis, wound is down to bone. This has progressed to osteomyelitis. consult podiatry. Broad-spectrum antibiotics with IV vancomycin and Zosyn. Pain control with Warrens and morphine for break through pain. 3. Hyperglycemia on admission, diabetes mellitus type 2 with uncontrolled In addition his Levemir and preprandial NovoLog for better control blood glucose 4. Hypokalemia. Replete 5. Hypovolemic hyponatremia likely due to hyperglycemia-normal saline and improved levels today. 6. DVT prophylaxisLovenox H/
[2017-08-22] MEDS: Morphine Inj 4 MG/ML Vial IV.PUSH PRN (17:35)
[2017-08-22] MEDS: Gabapentin 100 MG Capsule PO SCH (17:35)
[2017-08-23] MEDS: Piperacil/Tazo 3.375 GM Premix 50 ML IV.SIG SCH ×5 (00:23→21:43)
[2017-08-23] MEDS: Heparin - SQ 10,000 UNITS/ML Vial SQ SCH ×3 (00:23→21:42)
[2017-08-23] MEDS ORDERED: Dextrose 50% in Water Syringe 50 ML ONE (05:14)
[2017-08-23] MEDS: Morphine Inj 4 MG/ML Vial IV.PUSH PRN (05:21)
[2017-08-23 05:33] LABS: Baso % (Auto) 0.3 % (0.0-2.0); Eos % (Auto) 0.2 % (0.0-4.0); Hematocrit 29.6 % (35.0-46.0); Hemoglobin 10.1 gm/dL (11.6-15.3); Lymph # (Auto) 2.8 th/mm3 (1.0-4.8); Lymph % (Auto) 18.6 % (9.0-44.0); Mean Corpuscular HGB Conc 34.3 % (32.0-36.0); Mean Corpuscular Hemoglobin 28.9 pg (27.0-34.0); Mean Corpuscular Volume 84.2 fL (80.0-100.0); Mean Platelet Volume 9.8 fL (7.0-11.0); Mono # (Auto) 0.6 th/mm3 (0.0-0.9); Mono % (Auto) 4.1 % (0.0-8.0); Neut # (Auto) 11.4 th/mm3 (1.8-7.7); Neut % (Auto) 76.8 % (16.0-70.0); Platelet Count 243 th/mm3 (150-450); Red Blood Count 3.51 mil/mm3 (4.00-5.30); Red Cell Distribution Width 13.1 % (11.6-17.2); White Blood Count 14.9 th/mm3 (4.0-11.0)
[2017-08-23 05:40] LABS: Calcium 7.9 mg/dL (8.5-10.1); Carbon Dioxide 28.6 meq/L (21.0-32.0); Potassium 3.1 meq/L (3.5-5.1)
[2017-08-23] MEDS ORDERED: Dextrose 50% in Water 50 ML Vial IV.PUSH PRN (08:13)
[2017-08-23] MEDS: Senna/Docusate Sodium 8.6/50 MG Tablet PO SCH ×2 (08:42→21:43)
[2017-08-23] MEDS: Gabapentin 100 MG Capsule PO SCH ×2 (08:42→13:08)
[2017-08-23] MEDS: Collagenase Oint 30 GM Tube TOPICAL SCH (09:14)
[2017-08-23] MEDS: Insulin Detemir Inj 1,000 UNIT/10 ML Vial SQ SCH ×2 (09:14→21:43)
[2017-08-23] MEDS: Vancomycin Inj 1,500 MG in Sodium Chlor 0.9% Inj 500 ML IV.SIG SCH (11:24)
[2017-08-24] MEDS: Piperacil/Tazo 3.375 GM Premix 50 ML IV.SIG SCH ×4 (04:17→21:15)
[2017-08-24 07:11] LABS: Calcium 7.5 mg/dL (8.5-10.1); Carbon Dioxide 28.7 meq/L (21.0-32.0); Potassium 4.4 meq/L (3.5-5.1)
--- NOTE | 2017-08-24 07:33 | P.PNIM ---
Subjective Interval history: This note drafted for 08/23 visit Patient still having heel pain. Physical Exam Vital signs: Vital Signs 08/23/17 08:00 08/23/17 09:00 08/23/17 12:00 Temperature 98.3 F 98.4 F Pulse Rate 81 80 87 Respiratory Rate 14 16 Blood Pressure 107/56 L 119/66 Pulse Oximetry 95 98 08/23/17 13:12 08/23/17 16:00 08/23/17 20:00 Temperature 98.2 F 98.2 F Pulse Rate 88 92 H Respiratory Rate 16 16 18 Blood Pressure 116/57 L 106/58 L Pulse Oximetry 98 94 L 08/23/17 22:33 08/23/17 22:34 08/23/17 22:35 Temperature Pulse Rate 89 90 90 Respiratory Rate 17 18 19 Blood Pressure Pulse Oximetry 91 L 91 L 92 L 08/23/17 22:36 08/23/17 22:37 08/23/17 22:38 Temperature Pulse Rate 88 89 90 Respiratory Rate 17 18 18 Blood Pressure Pulse Oximetry 92 L 91 L 91 L 08/23/17 22:39 08/23/17 22:40 08/23/17 22:41 Temperature Pulse Rate 90 90 90 Respiratory Rate 17 17 18 Blood Pressure Pulse Oximetry 91 L 91 L 91 L 08/23/17 22:42 08/23/17 22:43 08/23/17 22:44 Temperature Pulse Rate 89 90 90 Respiratory Rate 17 19 18 Blood Pressure Pulse Oximetry 92 L 92 L 91 L 08/23/17 22:45 08/23/17 22:46 08/23/17 22:47 Temperature Pulse Rate 90 89 89 Respiratory Rate 17 17 16 Blood Pressure Pulse Oximetry 91 L 91 L 91 L 08/23/17 22:48 08/23/17 22:49 08/23/17 22:50 Temperature Pulse Rate 89 89 90 Respiratory Rate 20 18 18 Blood Pressure Pulse Oximetry 93 L 90 L 90 L 08/23/17 22:51 08/23/17 22:52 08/23/17 22:53 Temperature Pulse Rate 91 H 90 91 H Respiratory Rate 22 20 20 Blood Pressure Pulse Oximetry 94 L 89 L 89 L 08/23/17 22:54 08/23/17 22:55 08/23/17 22:56 Temperature Pulse Rate 91 H 91 H 91 H Respiratory Rate 20 20 19 Blood Pressure Pulse Oximetry 89 L 88 L 88 L 08/23/17 22:57 08/23/17 22:58 08/23/17 22:59 Temperature Pulse Rate 91 H 91 H 91 H Respiratory Rate 19 19 18 Blood Pressure Pulse Oximetry 88 L 89 L 89 L 08/23/17 23:00 08/23/17 23:01 08/23/17 23:02 Temperature Pulse Rate 90 90 90 Respiratory Rate 18 18 18 Blood Pressure 103/56 L Pulse Oximetry 90 L 89 L 89 L 08/23/17 23:03 08/23/17 23:04 08/23/17 23:05 Temperature Pulse Rate 90 93 H 91 H Respiratory Rate 18 25 H 20 Blood Pressure Pulse Oximetry 89 L 93 L 91 L 08/23/17 23:06 08/23/17 23:07 08/23/17 23:08 Temperature Pulse Rate 91 H 91 H 90 Respiratory Rate 19 19 19 Blood Pressure Pulse Oximetry 90 L 90 L 90 L 08/23/17 23:09 08/23/17 23:10 08/23/17 23:11 Temperature Pulse Rate 90 90 90 Respiratory Rate 17 19 18 Blood Pressure Pulse Oximetry 90 L 91 L 91 L 08/23/17 23:12 08/23/17 23:13 08/23/17 23:14 Temperature Pulse Rate 88 88 89 Respiratory Rate 17 18 18 Blood Pressure Pulse Oximetry 91 L 91 L 91 L 08/23/17 23:15 08/23/17 23:16 08/23/17 23:17 Temperature Pulse Rate 88 89 89 Respiratory Rate 18 19 17 Blood Pressure Pulse Oximetry 91 L 91 L 91 L 08/23/17 23:18 08/23/17 23:19 08/23/17 23:20 Temperature Pulse Rate 90 88 88 Respiratory Rate 18 18 18 Blood Pressure Pulse Oximetry 91 L 91 L 91 L 08/23/17 23:21 08/23/17 23:22 08/23/17 23:23 Temperature Pulse Rate 89 87 92 H Respiratory Rate 18 18 27 H Blood Pressure Pulse Oximetry 91 L 91 L 92 L 08/23/17 23:24 08/23/17 23:25 08/23/17 23:41 Temperature Pulse Rate 96 H 94 H 86 Respiratory Rate 24 25 H 19 Blood Pressure Pulse Oximetry 91 L 92 L 93 L 08/23/17 23:42 08/23/17 23:43 08/23/17 23:44 Temperature Pulse Rate 86 86 86 Respiratory Rate 18 18 17 Blood Pressure Pulse Oximetry 92 L 92 L 91 L 08/23/17 23:45 08/23/17 23:46 08/23/17 23:47 Temperature Pulse Rate 86 91 H 89 Respiratory Rate 21 31 H 19 Blood Pressure Pulse Oximetry 92 L 94 L 93 L 08/23/17 23:48 08/23/17 23:49 08/23/17 23:50 Temperature Pulse Rate 88 88 87 Respiratory Rate 18 18 18 Blood Pressure Pulse Oximetry 92 L 91 L 91 L 08/23/17 23:51 08/23/17 23:52 08/23/17 23:53 Temperature Pulse Rate 87 86 86 Respiratory Rate 17 17 17 Blood Pressure Pulse Oximetry 91 L 91 L 91 L 08/23/17 23:54 08/23/17 23:55 08/23/17 23:56 Temperature Pulse Rate 86 86 86 Respiratory Rate 18 18 18 Blood Pressure Pulse Oximetry 92 L 92 L 91 L 08/23/17 23:57 08/23/17 23:58 08/23/17 23:59 Temperature Pulse Rate 87 91 H 90 Respiratory Rate 18 20 24 Blood Pressure Pulse Oximetry 93 L 94 L 91 L 08/24/17 00:00 08/24/17 00:01 08/24/17 00:02 Temperature 98.2 F Pulse Rate 88 88 88 Respiratory Rate 18 29 H 25 H Blood Pressure 116/62 Pulse Oximetry 92 L 91 L 90 L 08/24/17 00:03 08/24/17 00:04 08/24/17 00:05 Temperature Pulse Rate 88 87 88 Respiratory Rate 34 H 26 H 32 H Blood Pressure Pulse Oximetry 90 L 92 L 91 L 08/24/17 00:06 08/24/17 00:07 08/24/17 00:08 Temperature Pulse Rate 87 89 88 Respiratory Rate 24 26 H 21 Blood Pressure Pulse Oximetry 91 L 91 L 92 L 08/24/17 00:09 08/24/17 00:10 08/24/17 00:11 Temperature Pulse Rate 87 87 88 Respiratory Rate 20 18 18 Blood Pressure Pulse Oximetry 93 L 91 L 91 L 08/24/17 00:12 08/24/17 00:13 08/24/17 00:14 Temperature Pulse Rate 87 87 88 Respiratory Rate 17 18 18 Blood Pressure Pulse Oximetry 91 L 91 L 92 L 08/24/17 00:15 08/24/17 00:16 08/24/17 00:17 Temperature Pulse Rate 87 87 87 Respiratory Rate 17 17 18 Blood Pressure Pulse Oximetry 91 L 91 L 91 L 08/24/17 00:18 08/24/17 00:19 08/24/17 00:20 Temperature Pulse Rate 87 88 88 Respiratory Rate 19 18 20 Blood Pressure Pulse Oximetry 92 L 92 L 92 L 08/24/17 00:21 08/24/17 00:22 08/24/17 00:23 Temperature Pulse Rate 89 89 88 Respiratory Rate 21 19 18 Blood Pressure Pulse Oximetry 94 L 93 L 91 L 08/24/17 00:24 08/24/17 00:25 08/24/17 00:26 Temperature Pulse Rate 88 87 87 Respiratory Rate 18 17 18 Blood Pressure Pulse Oximetry 91 L 92 L 92 L 08/24/17 00:27 08/24/17 00:28 08/24/17 00:29 Temperature Pulse Rate 91 H 90 90 Respiratory Rate 21 20 30 H Blood Pressure Pulse Oximetry 93 L 91 L 92 L 08/24/17 00:30 08/24/17 00:31 08/24/17 00:32 Temperature Pulse Rate 90 90 88 Respiratory Rate 36 H 30 H 29 H Blood Pressure Pulse Oximetry 91 L 91 L 91 L 08/24/17 00:33 08/24/17 00:34 08/24/17 00:35 Temperature Pulse Rate 88 88 88 Respiratory Rate 19 18 21 Blood Pressure Pulse Oximetry 92 L 92 L 91 L 08/24/17 00:36 08/24/17 00:37 08/24/17 00:38 Temperature Pulse Rate 87 87 87 Respiratory Rate 17 21 22 Blood Pressure Pulse Oximetry 92 L 92 L 90 L 08/24/17 00:39 08/24/17 00:40 08/24/17 00:41 Temperature Pulse Rate 87 88 88 Respiratory Rate 18 15 16 Blood Pressure Pulse Oximetry 73 L 80 L 94 L 08/24/17 00:42 08/24/17 00:43 08/24/17 00:44 Temperature Pulse Rate 82 83 83 Respiratory Rate 16 16 15 Blood Pressure Pulse Oximetry 90 L 92 L 95 08/24/17 00:45 08/24/17 00:46 08/24/17 00:47 Temperature Pulse Rate 83 85 83 Respiratory Rate 16 16 16 Blood Pressure Pulse Oximetry 94 L 95 96 08/24/17 00:48 08/24/17 00:49 08/24/17 00:50 Temperature Pulse Rate 82 91 H 86 Respiratory Rate 17 15 14 Blood Pressure Pulse Oximetry 96 99 100 08/24/17 00:51 08/24/17 00:52 08/24/17 00:53 Temperature Pulse Rate 86 87 87 Respiratory Rate 15 16 15 Blood Pressure Pulse Oximetry 99 99 98 08/24/17 00:54 08/24/17 00:55 08/24/17 00:56 Temperature Pulse Rate 87 87 87 Respiratory Rate 15 17 15 Blood Pressure Pulse Oximetry 98 98 98 08/24/17 00:57 08/24/17 00:58 08/24/17 03:40 Temperature Pulse Rate 87 91 H 94 H Respiratory Rate 18 23 Blood Pressure Pulse Oximetry 97 98 93 L 08/24/17 03:41 08/24/17 03:42 08/24/17 03:43 Temperature Pulse Rate 92 H 89 89 Respiratory Rate 16 18 17 Blood Pressure Pulse Oximetry 93 L 94 L 91 L 08/24/17 03:44 08/24/17 03:45 08/24/17 03:46 Temperature Pulse Rate 86 84 83 Respiratory Rate 23 18 18 Blood Pressure Pulse Oximetry 89 L 88 L 89 L 08/24/17 03:47 08/24/17 03:48 08/24/17 03:49 Temperature Pulse Rate 82 82 82 Respiratory Rate 16 17 16 Blood Pressure Pulse Oximetry 90 L 89 L 89 L 08/24/17 03:50 08/24/17 03:51 08/24/17 03:52 Temperature Pulse Rate 81 81 82 Respiratory Rate 16 18 16 Blood Pressure Pulse Oximetry 90 L 90 L 90 L 08/24/17 03:53 08/24/17 03:54 08/24/17 03:55 Temperature Pulse Rate 82 81 82 Respiratory Rate 16 16 16 Blood Pressure Pulse Oximetry 90 L 91 L 92 L 08/24/17 03:56 08/24/17 03:57 08/24/17 03:58 Temperature Pulse Rate 82 82 82 Respiratory Rate 16 19 16 Blood Pressure Pulse Oximetry 91 L 91 L 91 L 08/24/17 03:59 08/24/17 04:00 08/24/17 04:01 Temperature Pulse Rate 82 82 84 Respiratory Rate 20 22 20 Blood Pressure 104/61 Pulse Oximetry 92 L 93 L 92 L 08/24/17 04:02 08/24/17 04:03 08/24/17 04:04 Temperature Pulse Rate 83 83 82 Respiratory Rate 16 16 18 Blood Pressure Pulse Oximetry 90 L 90 L 90 L 08/24/17 04:05 08/24/17 04:06 08/24/17 04:07 Temperature Pulse Rate 82 81 81 Respiratory Rate 16 16 15 Blood Pressure Pulse Oximetry 91 L 90 L 91 L 08/24/17 04:08 08/24/17 04:09 08/24/17 04:10 Temperature Pulse Rate 82 81 82 Respiratory Rate 15 16 16 Blood Pressure Pulse Oximetry 91 L 91 L 92 L 08/24/17 04:11 08/24/17 04:12 08/24/17 04:13 Temperature Pulse Rate 82 81 81 Respiratory Rate 16 15 15 Blood Pressure Pulse Oximetry 91 L 91 L 91 L 08/24/17 04:14 08/24/17 04:15 08/24/17 04:16 Temperature Pulse Rate 81 82 91 H Respiratory Rate 16 24 36 H Blood Pressure Pulse Oximetry 91 L 93 L 93 L 08/24/17 04:17 08/24/17 04:18 08/24/17 04:19 Temperature Pulse Rate 91 H 92 H 92 H Respiratory Rate 21 30 H 38 H Blood Pressure Pulse Oximetry 92 L 90 L 91 L 08/24/17 04:20 08/24/17 04:21 08/24/17 04:22 Temperature Pulse Rate 91 H 87 83 Respiratory Rate 21 14 17 Blood Pressure Pulse Oximetry 95 93 L 92 L 08/24/17 04:23 08/24/17 04:24 08/24/17 04:25 Temperature Pulse Rate 83 82 81 Respiratory Rate 22 16 17 Blood Pressure Pulse Oximetry 93 L 93 L 93 L 08/24/17 04:26 08/24/17 04:27 08/24/17 04:28 Temperature Pulse Rate 80 80 80 Respiratory Rate 15 16 15 Blood Pressure Pulse Oximetry 94 L 93 L 93 L Intake & Output 08/23/17 08/24/17 08/24/17 18:59 06:59 18:59 Intake Total 565 / 565 630 / 630 Output Total 150 / 150 1150 / 1150 Balance 415 / 415 -520 / -520 Weight 76.5 kg Intake: IV 565 / 565 150 / 150 Zosyn 3.375 GM Premix 50 ML @ 50 / 50 150 / 150 100 mls/hr IV.SIG Q6H RICARDO Rx#: [id number] Vancomycin Inj 1,500 MG In NS 515 / 515 Inj 500 ML @ 250 mls/hr IV.SIG Q24H RICARDO Rx#:[id number] Oral 480 / 480 Output: Urine 1150 / 1150 Urine Amount (Catheter) 150 / 150 Straight 150 / 150 Other: # Bowel Movements 0 # Emeses 2 Narrative: GENERAL: This is a well-nourished, well-developed patient, in no apparent distress. CARDIOVASCULAR: Regular rate and rhythm without murmurs, gallops, or rubs. RESPIRATORY: Clear to auscultation. Breath sounds equal bilaterally. No wheezes , rales, or rhonchi. GASTROINTESTINAL: Abdomen soft, non-tender, nondistended. Normal active bowel sounds MUSCULOSKELETAL: Right heel still with some black necrotic tissue however has less excoriation and decrease edema and redness NEURO: Alert & Oriented x4 to person, place, time, situation. Moves all ext x4 - Urinary Catheter Management Straight Cath placed during this visit: yes Reason for continuing: Not indwelling catheter Insertion date: 08/21/17 Results - Labs CBC & Chem 7: 08/23/17 04:48 08/24/17 05:34 Laboratory Results - last 24 hr 08/23/17 08/23/17 08/23/17 08:39 11:37 16:46 Sodium Potassium Chloride Carbon Dioxide Anion Gap BUN Creatinine Estimated GFR POC Glucose 169 H 130 H 56 L Random Glucose Calcium 08/23/17 08/23/17 08/23/17 16:55 17:24 20:12 Sodium Potassium Chloride Carbon Dioxide Anion Gap BUN Creatinine Estimated GFR POC Glucose 51 L 169 H 128 H Random Glucose Calcium 08/24/17 05:34 Sodium 137 Potassium 4.4 D Chloride 101 Carbon Dioxide 28.7 Anion Gap 7 BUN 10 Creatinine 0.83 Estimated GFR 72 L POC Glucose Random Glucose 141 H Calcium 7.5 L Microbiology 08/21/17 19:25 Blood - Peripheral Aerobic Blood Culture - Preliminary No growth in 2 days 08/21/17 19:25 Blood - Peripheral Anaerobic Blood Culture - Preliminary No growth in 2 days 08/21/17 19:30 Blood - Peripheral Aerobic Blood Culture - Preliminary No growth in 2 days 08/21/17 19:30 Blood - Peripheral Anaerobic Blood Culture - Preliminary No growth in 2 days 08/21/17 19:25 Wound - Foot Gram Stain - Final 08/21/17 19:25 Wound - Foot Wound Culture - Final S. aureus MRSA Group B beta Strep Assessment and Plan - Plan 1. Sepsis present on admission due to leukocytosis and tachycardic with source of right diabetic foot infection Wound culture shows strep B and MRSA. Await final culture results patient currently on IV Zosyn and IV vancomycinawait podiatry consultation and consideration for infectious disease consultation. 2. Right heel diabetic foot wound. = Although x-ray does not indicate osteo-myelitis, wound is down to bone. Status post bedside I&D with podiatry. Broad-spectrum antibiotics with IV vancomycin and Zosyn. Pain control with Eure and morphine for break through pain. 3. Hyperglycemia on admission, diabetes mellitus type 2 with uncontrolled Dosing of adjusted Levemir and preprandial NovoLog for better control blood glucose 4. Hypokalemia. Replete 5. Hypovolemic hyponatremia likely due to hyperglycemia-normal saline and improved levels today. This is improved 6. DVT prophylaxisLovenox Transfer out of intensive care unit
[2017-08-24] MEDS: Insulin Detemir Inj 1,000 UNIT/10 ML Vial SQ SCH ×2 (09:00→20:44)
[2017-08-24] MEDS: Senna/Docusate Sodium 8.6/50 MG Tablet PO SCH ×2 (09:00→20:42)
[2017-08-24] MEDS: Heparin - SQ 10,000 UNITS/ML Vial SQ SCH ×2 (09:00→21:14)
[2017-08-24] MEDS: Collagenase Oint 30 GM Tube TOPICAL SCH (09:00)
[2017-08-24] MEDS: Gabapentin 100 MG Capsule PO SCH ×3 (09:00→17:01)
[2017-08-24] MEDS: Morphine Inj 4 MG/ML Vial IV.PUSH PRN ×2 (12:17→23:10)
[2017-08-24] MEDS: Vancomycin Inj 1,500 MG in Sodium Chlor 0.9% Inj 500 ML IV.SIG SCH (12:46)
--- NOTE | 2017-08-24 14:51 | ECHRPT ---
EXAM DATE: 08/24/2017 2:40 PM EDT AGE/SEX: 52 years / Female INDICATIONS: HYPERGLYCEMIA/HYPONA/HYPOKA/RIGHT FOOT CELLULITIS CLINICAL DATA: This is the patient's initial encounter. Patient reports that signs and symptoms have been present for > 1 year and indicates a pain score of 3/10. MEDICAL/SURGICAL HISTORY: . HEPATITIS C, DIABETES, CHRONIC RIGHT HEEL ULCER . COMPARISON: No prior exams available for comparison. TECHNIQUE: Five-station segmental examination of the lower extremities was performed. Pulsed-cuff wa veform tracings and pressures were recorded. Ankle-brachial indices and toe-brachial indices were trevor culated. PRESSURES (mmHg): Brachial (arm) : RIGHT: IV SITE, LEFT: 118 Lower Thigh : RIGHT: 153, LEFT: 144 Calf : RIGHT: 129, LEFT: 141 Ankle : RIGHT: 142, LEFT: 124 Toe : RIGHT: 109, LEFT: 95 ELIGIO : RIGHT: 1.20, LEFT: 1.05 TBI : RIGHT: 0.92, LEFT: 0.81 FINDINGS: Pulsed-Cuff Waveform: There are good upstroke and dicrotic downstroke of the tracings. Other: None. CONCLUSION: 1. Mild diminished TBI on the left. 2. The ABIs are within normal limits down to both ankles. No significant vascular occlusive disease is demonstrated.. Electronically signed by: Jordan Montaño MD 08/24/2017 2:49 PM EDT
--- NOTE | 2017-08-24 16:11 | P.PNIM ---
Subjective Interval history: Patient states that she is still having a lot of pain over the right heel and is not feeling better despite the debridement. She does not feel comfortable going home. Physical Exam Vital signs: Vital Signs 08/23/17 20:00 08/23/17 22:33 08/23/17 22:34 Temperature 98.2 F Pulse Rate 92 H 89 90 Respiratory Rate 18 17 18 Blood Pressure 106/58 L Pulse Oximetry 94 L 91 L 91 L 08/23/17 22:35 08/23/17 22:36 08/23/17 22:37 Temperature Pulse Rate 90 88 89 Respiratory Rate 19 17 18 Blood Pressure Pulse Oximetry 92 L 92 L 91 L 08/23/17 22:38 08/23/17 22:39 08/23/17 22:40 Temperature Pulse Rate 90 90 90 Respiratory Rate 18 17 17 Blood Pressure Pulse Oximetry 91 L 91 L 91 L 08/23/17 22:41 08/23/17 22:42 08/23/17 22:43 Temperature Pulse Rate 90 89 90 Respiratory Rate 18 17 19 Blood Pressure Pulse Oximetry 91 L 92 L 92 L 08/23/17 22:44 08/23/17 22:45 08/23/17 22:46 Temperature Pulse Rate 90 90 89 Respiratory Rate 18 17 17 Blood Pressure Pulse Oximetry 91 L 91 L 91 L 08/23/17 22:47 08/23/17 22:48 08/23/17 22:49 Temperature Pulse Rate 89 89 89 Respiratory Rate 16 20 18 Blood Pressure Pulse Oximetry 91 L 93 L 90 L 08/23/17 22:50 08/23/17 22:51 08/23/17 22:52 Temperature Pulse Rate 90 91 H 90 Respiratory Rate 18 22 20 Blood Pressure Pulse Oximetry 90 L 94 L 89 L 08/23/17 22:53 08/23/17 22:54 08/23/17 22:55 Temperature Pulse Rate 91 H 91 H 91 H Respiratory Rate 20 20 20 Blood Pressure Pulse Oximetry 89 L 89 L 88 L 08/23/17 22:56 08/23/17 22:57 08/23/17 22:58 Temperature Pulse Rate 91 H 91 H 91 H Respiratory Rate 19 19 19 Blood Pressure Pulse Oximetry 88 L 88 L 89 L 08/23/17 22:59 08/23/17 23:00 08/23/17 23:01 Temperature Pulse Rate 91 H 90 90 Respiratory Rate 18 18 18 Blood Pressure 103/56 L Pulse Oximetry 89 L 90 L 89 L 08/23/17 23:02 08/23/17 23:03 08/23/17 23:04 Temperature Pulse Rate 90 90 93 H Respiratory Rate 18 18 25 H Blood Pressure Pulse Oximetry 89 L 89 L 93 L 08/23/17 23:05 08/23/17 23:06 08/23/17 23:07 Temperature Pulse Rate 91 H 91 H 91 H Respiratory Rate 20 19 19 Blood Pressure Pulse Oximetry 91 L 90 L 90 L 08/23/17 23:08 08/23/17 23:09 08/23/17 23:10 Temperature Pulse Rate 90 90 90 Respiratory Rate 19 17 19 Blood Pressure Pulse Oximetry 90 L 90 L 91 L 08/23/17 23:11 08/23/17 23:12 08/23/17 23:13 Temperature Pulse Rate 90 88 88 Respiratory Rate 18 17 18 Blood Pressure Pulse Oximetry 91 L 91 L 91 L 08/23/17 23:14 08/23/17 23:15 08/23/17 23:16 Temperature Pulse Rate 89 88 89 Respiratory Rate 18 18 19 Blood Pressure Pulse Oximetry 91 L 91 L 91 L 08/23/17 23:17 08/23/17 23:18 08/23/17 23:19 Temperature Pulse Rate 89 90 88 Respiratory Rate 17 18 18 Blood Pressure Pulse Oximetry 91 L 91 L 91 L 08/23/17 23:20 08/23/17 23:21 08/23/17 23:22 Temperature Pulse Rate 88 89 87 Respiratory Rate 18 18 18 Blood Pressure Pulse Oximetry 91 L 91 L 91 L 08/23/17 23:23 08/23/17 23:24 08/23/17 23:25 Temperature Pulse Rate 92 H 96 H 94 H Respiratory Rate 27 H 24 25 H Blood Pressure Pulse Oximetry 92 L 91 L 92 L 08/23/17 23:41 08/23/17 23:42 08/23/17 23:43 Temperature Pulse Rate 86 86 86 Respiratory Rate 19 18 18 Blood Pressure Pulse Oximetry 93 L 92 L 92 L 08/23/17 23:44 08/23/17 23:45 08/23/17 23:46 Temperature Pulse Rate 86 86 91 H Respiratory Rate 17 21 31 H Blood Pressure Pulse Oximetry 91 L 92 L 94 L 07/05/18 23:47 08/23/17 23:48 08/23/17 23:49 Temperature Pulse Rate 89 88 88 Respiratory Rate 19 18 18 Blood Pressure Pulse Oximetry 93 L 92 L 91 L 08/23/17 23:50 08/23/17 23:51 08/23/17 23:52 Temperature Pulse Rate 87 87 86 Respiratory Rate 18 17 17 Blood Pressure Pulse Oximetry 91 L 91 L 91 L 08/23/17 23:53 08/23/17 23:54 08/23/17 23:55 Temperature Pulse Rate 86 86 86 Respiratory Rate 17 18 18 Blood Pressure Pulse Oximetry 91 L 92 L 92 L 08/23/17 23:56 08/23/17 23:57 08/23/17 23:58 Temperature Pulse Rate 86 87 91 H Respiratory Rate 18 18 20 Blood Pressure Pulse Oximetry 91 L 93 L 94 L 08/23/17 23:59 08/24/17 00:00 08/24/17 00:01 Temperature 98.2 F Pulse Rate 90 88 88 Respiratory Rate 24 18 29 H Blood Pressure 116/62 Pulse Oximetry 91 L 92 L 91 L 08/24/17 00:02 08/24/17 00:03 08/24/17 00:04 Temperature Pulse Rate 88 88 87 Respiratory Rate 25 H 34 H 26 H Blood Pressure Pulse Oximetry 90 L 90 L 92 L 08/24/17 00:05 08/24/17 00:06 08/24/17 00:07 Temperature Pulse Rate 88 87 89 Respiratory Rate 32 H 24 26 H Blood Pressure Pulse Oximetry 91 L 91 L 91 L 08/24/17 00:08 08/24/17 00:09 08/24/17 00:10 Temperature Pulse Rate 88 87 87 Respiratory Rate 21 20 18 Blood Pressure Pulse Oximetry 92 L 93 L 91 L 08/24/17 00:11 08/24/17 00:12 08/24/17 00:13 Temperature Pulse Rate 88 87 87 Respiratory Rate 18 17 18 Blood Pressure Pulse Oximetry 91 L 91 L 91 L 08/24/17 00:14 08/24/17 00:15 08/24/17 00:16 Temperature Pulse Rate 88 87 87 Respiratory Rate 18 17 17 Blood Pressure Pulse Oximetry 92 L 91 L 91 L 08/24/17 00:17 08/24/17 00:18 08/24/17 00:19 Temperature Pulse Rate 87 87 88 Respiratory Rate 18 19 18 Blood Pressure Pulse Oximetry 91 L 92 L 92 L 08/24/17 00:20 08/24/17 00:21 08/24/17 00:22 Temperature Pulse Rate 88 89 89 Respiratory Rate 20 21 19 Blood Pressure Pulse Oximetry 92 L 94 L 93 L 08/24/17 00:23 08/24/17 00:24 08/24/17 00:25 Temperature Pulse Rate 88 88 87 Respiratory Rate 18 18 17 Blood Pressure Pulse Oximetry 91 L 91 L 92 L 08/24/17 00:26 08/24/17 00:27 08/24/17 00:28 Temperature Pulse Rate 87 91 H 90 Respiratory Rate 18 21 20 Blood Pressure Pulse Oximetry 92 L 93 L 91 L 08/24/17 00:29 08/24/17 00:30 08/24/17 00:31 Temperature Pulse Rate 90 90 90 Respiratory Rate 30 H 36 H 30 H Blood Pressure Pulse Oximetry 92 L 91 L 91 L 08/24/17 00:32 08/24/17 00:33 08/24/17 00:34 Temperature Pulse Rate 88 88 88 Respiratory Rate 29 H 19 18 Blood Pressure Pulse Oximetry 91 L 92 L 92 L 08/24/17 00:35 08/24/17 00:36 08/24/17 00:37 Temperature Pulse Rate 88 87 87 Respiratory Rate 21 17 21 Blood Pressure Pulse Oximetry 91 L 92 L 92 L 08/24/17 00:38 08/24/17 00:39 08/24/17 00:40 Temperature Pulse Rate 87 87 88 Respiratory Rate 22 18 15 Blood Pressure Pulse Oximetry 90 L 73 L 80 L 08/24/17 00:41 08/24/17 00:42 08/24/17 00:43 Temperature Pulse Rate 88 82 83 Respiratory Rate 16 16 16 Blood Pressure Pulse Oximetry 94 L 90 L 92 L 08/24/17 00:44 08/24/17 00:45 08/24/17 00:46 Temperature Pulse Rate 83 83 85 Respiratory Rate 15 16 16 Blood Pressure Pulse Oximetry 95 94 L 95 08/24/17 00:47 08/24/17 00:48 08/24/17 00:49 Temperature Pulse Rate 83 82 91 H Respiratory Rate 16 17 15 Blood Pressure Pulse Oximetry 96 96 99 08/24/17 00:50 08/24/17 00:51 08/24/17 00:52 Temperature Pulse Rate 86 86 87 Respiratory Rate 14 15 16 Blood Pressure Pulse Oximetry 100 99 99 08/24/17 00:53 08/24/17 00:54 08/24/17 00:55 Temperature Pulse Rate 87 87 87 Respiratory Rate 15 15 17 Blood Pressure Pulse Oximetry 98 98 98 08/24/17 00:56 08/24/17 00:57 08/24/17 00:58 Temperature Pulse Rate 87 87 91 H Respiratory Rate 15 18 23 Blood Pressure Pulse Oximetry 98 97 98 08/24/17 03:40 08/24/17 03:41 08/24/17 03:42 Temperature Pulse Rate 94 H 92 H 89 Respiratory Rate 16 18 Blood Pressure Pulse Oximetry 93 L 93 L 94 L 08/24/17 03:43 08/24/17 03:44 08/24/17 03:45 Temperature Pulse Rate 89 86 84 Respiratory Rate 17 23 18 Blood Pressure Pulse Oximetry 91 L 89 L 88 L 08/24/17 03:46 08/24/17 03:47 08/24/17 03:48 Temperature Pulse Rate 83 82 82 Respiratory Rate 18 16 17 Blood Pressure Pulse Oximetry 89 L 90 L 89 L 08/24/17 03:49 08/24/17 03:50 08/24/17 03:51 Temperature Pulse Rate 82 81 81 Respiratory Rate 16 16 18 Blood Pressure Pulse Oximetry 89 L 90 L 90 L 08/24/17 03:52 08/24/17 03:53 08/24/17 03:54 Temperature Pulse Rate 82 82 81 Respiratory Rate 16 16 16 Blood Pressure Pulse Oximetry 90 L 90 L 91 L 08/24/17 03:55 08/24/17 03:56 08/24/17 03:57 Temperature Pulse Rate 82 82 82 Respiratory Rate 16 16 19 Blood Pressure Pulse Oximetry 92 L 91 L 91 L 08/24/17 03:58 08/24/17 03:59 08/24/17 04:00 Temperature Pulse Rate 82 82 82 Respiratory Rate 16 20 22 Blood Pressure 104/61 Pulse Oximetry 91 L 92 L 93 L 08/24/17 04:01 08/24/17 04:02 08/24/17 04:03 Temperature Pulse Rate 84 83 83 Respiratory Rate 20 16 16 Blood Pressure Pulse Oximetry 92 L 90 L 90 L 08/24/17 04:04 08/24/17 04:05 08/24/17 04:06 Temperature Pulse Rate 82 82 81 Respiratory Rate 18 16 16 Blood Pressure Pulse Oximetry 90 L 91 L 90 L 08/24/17 04:07 08/24/17 04:08 08/24/17 04:09 Temperature Pulse Rate 81 82 81 Respiratory Rate 15 15 16 Blood Pressure Pulse Oximetry 91 L 91 L 91 L 08/24/17 04:10 08/24/17 04:11 08/24/17 04:12 Temperature Pulse Rate 82 82 81 Respiratory Rate 16 16 15 Blood Pressure Pulse Oximetry 92 L 91 L 91 L 08/24/17 04:13 08/24/17 04:14 08/24/17 04:15 Temperature Pulse Rate 81 81 82 Respiratory Rate 15 16 24 Blood Pressure Pulse Oximetry 91 L 91 L 93 L 08/24/17 04:16 08/24/17 04:17 08/24/17 04:18 Temperature Pulse Rate 91 H 91 H 92 H Respiratory Rate 36 H 21 30 H Blood Pressure Pulse Oximetry 93 L 92 L 90 L 08/24/17 04:19 08/24/17 04:20 08/24/17 04:21 Temperature Pulse Rate 92 H 91 H 87 Respiratory Rate 38 H 21 14 Blood Pressure Pulse Oximetry 91 L 95 93 L 08/24/17 04:22 08/24/17 04:23 08/24/17 04:24 Temperature Pulse Rate 83 83 82 Respiratory Rate 17 22 16 Blood Pressure Pulse Oximetry 92 L 93 L 93 L 08/24/17 04:25 08/24/17 04:26 08/24/17 04:27 Temperature Pulse Rate 81 80 80 Respiratory Rate 17 15 16 Blood Pressure Pulse Oximetry 93 L 94 L 93 L 08/24/17 04:28 08/24/17 08:00 08/24/17 09:00 Temperature 98.5 F Pulse Rate 80 83 78 Respiratory Rate 15 22 Blood Pressure 145/77 H Pulse Oximetry 93 L 97 08/24/17 12:00 Temperature 97.8 F Pulse Rate 81 Respiratory Rate 18 Blood Pressure 128/79 Pulse Oximetry 95 Intake & Output 08/23/17 08/24/17 08/24/17 18:59 06:59 18:59 Intake Total 565 / 565 630 / 630 565 / 565 Output Total 150 / 150 1150 / 1150 Balance 415 / 415 -520 / -520 565 / 565 Weight 76.5 kg 75.3 kg Intake: IV 565 / 565 150 / 150 565 / 565 Zosyn 3.375 GM Premix 50 ML @ 50 / 50 150 / 150 50 / 50 100 mls/hr IV.SIG Q6H RICARDO Rx#: [id number] Vancomycin Inj 1,500 MG In NS 515 / 515 515 / 515 Inj 500 ML @ 250 mls/hr IV.SIG Q24H RICARDO Rx#:[id number] Oral 480 / 480 Output: Urine 1150 / 1150 Urine Amount (Catheter) 150 / 150 Straight 150 / 150 Other: # Voids 1 # Bowel Movements 0 # Emeses 2 Narrative: GENERAL: This is a well-nourished, well-developed patient, in no apparent distress. CARDIOVASCULAR: Regular rate and rhythm without murmurs, gallops, or rubs. RESPIRATORY: Clear to auscultation. Breath sounds equal bilaterally. No wheezes , rales, or rhonchi. GASTROINTESTINAL: Abdomen soft, non-tender, nondistended. Normal active bowel sounds MUSCULOSKELETAL: Right heel still with some black necrotic tissue however has less excoriation and decrease edema and redness; bandage clean dry and intact NEURO: Alert & Oriented x4 to person, place, time, situation. Moves all ext x4 - Urinary Catheter Management Straight Cath placed during this visit: yes Reason for continuing: Not indwelling catheter Insertion date: 08/21/17 Results - Labs CBC & Chem 7: 08/23/17 04:48 08/24/17 05:34 Laboratory Results - last 24 hr 08/23/17 08/23/17 08/23/17 16:46 16:55 17:24 Sodium Potassium Chloride Carbon Dioxide Anion Gap BUN Creatinine Estimated GFR POC Glucose 56 L 51 L 169 H Random Glucose Calcium 08/23/17 08/24/17 08/24/17 20:12 05:34 07:52 Sodium 137 Potassium 4.4 D Chloride 101 Carbon Dioxide 28.7 Anion Gap 7 BUN 10 Creatinine 0.83 Estimated GFR 72 L POC Glucose 128 H 191 H Random Glucose 141 H Calcium 7.5 L 08/24/17 12:09 Sodium Potassium Chloride Carbon Dioxide Anion Gap BUN Creatinine Estimated GFR POC Glucose 255 H Random Glucose Calcium Microbiology 08/21/17 19:25 Blood - Peripheral Aerobic Blood Culture - Preliminary No growth in 3 days 08/21/17 19:25 Blood - Peripheral Anaerobic Blood Culture - Preliminary No growth in 3 days 08/21/17 19:30 Blood - Peripheral Aerobic Blood Culture - Preliminary No growth in 3 days 08/21/17 19:30 Blood - Peripheral Anaerobic Blood Culture - Preliminary No growth in 3 days - Imaging Impressions Extremity Arterial Study 08/22/17 20:03 CONCLUSION: 1. Mild diminished TBI on the left. 2. The ABIs are within normal limits down to both ankles. No significant vascular occlusive disease is demonstrated.. Assessment and Plan - Plan 1. Sepsis present on admission due to leukocytosis and tachycardic with source of right diabetic foot infection Wound culture shows strep B and MRSA. Await final culture results patient currently on IV Zosyn and IV vancomycin Status post podiatry evaluation and bedside debridement. 2. Right heel diabetic foot wound. = Although x-ray does not indicate osteo-myelitis, wound is down to bone. Status post bedside I&D with podiatry. Broad-spectrum antibiotics with IV vancomycin and Zosyn. Pain control with [place] and morphine for break through pain. Due to patient's persistent pain and significant wound, will obtain MRI of the right heel to rule out abscess or osteomyelitis. 3. Hyperglycemia on admission, diabetes mellitus type 2 with uncontrolled Dosing of adjusted Levemir and preprandial NovoLog for better control blood glucose 4. Hypokalemia. Replete 5. Hypovolemic hyponatremia likely due to hyperglycemia-normal saline and improved levels today. This is improved 6. DVT prophylaxisLovenox Discharge Planning: Home when medically stable
[2017-08-24] MEDS: Temazepam 15 MG Capsule PO PRN (20:42)
[2017-08-24] MEDS ORDERED: Gadodiamide PF Inj 287 MG/ML 5 ML Syringe (for RAD MRI) IVCONTRAST ONE (22:48)
--- NOTE | 2017-08-24 23:50 | MR ---
EXAM DATE: 08/24/2017 11:03 PM EDT AGE/SEX: 52 years / Female INDICATIONS: . Right foot heal ulcer. CLINICAL DATA: This is the patient's initial encounter. Patient reports that signs and symptoms have been present for 1 month and indicates a pain score of 10/10. MEDICAL/SURGICAL HISTORY: Diabetes mellitus type II. Hypertension. Cerebrovascular disease. C esarean section. COMPARISON: No prior exams available for comparison. TECHNIQUE: Multiplanar, multisequence MRI examination was performed without contrast and after th e intravenous administration of 15 ml Omniscan (gadodiamide) single exam dose. FINDINGS: Focal soft tissue defect is seen at the plantar aspect of the heel. Mild adjacent superficial soft ti ssue enhancement on the postcontrast images. No organized rounded fluid collections in the soft tissu es. Adjacent focal bony edema is identified in the posterior process of the calcaneus extending from the plantar surface. Mild bony edema extending into the central calcaneus. No focal bone erosion iden tified. All of the visualized tendons are intact. Plantar aponeurosis intact. CONCLUSION: Prominent plantar cutaneous ulceration heel with adjacent mild soft tissue enhancement indicating areli lulitis in the proper clinical setting. Ulceration extends to the posterior lateral plantar surface o f the calcaneus. Adjacent mild bony edema is noted suggesting osteomyelitis. No bone erosion. Electronically signed by: Luther Cronin MD 08/24/2017 11:48 PM EDT
[2017-08-25] MEDS: Piperacil/Tazo 3.375 GM Premix 50 ML IV.SIG SCH ×3 (07:30→21:16)
[2017-08-25] MEDS: Insulin Detemir Inj 1,000 UNIT/10 ML Vial SQ SCH (08:37)
[2017-08-25] MEDS: Senna/Docusate Sodium 8.6/50 MG Tablet PO SCH ×2 (08:37→21:13)
[2017-08-25] MEDS: Gabapentin 100 MG Capsule PO SCH ×3 (08:38→20:38)
[2017-08-25] MEDS: Collagenase Oint 30 GM Tube TOPICAL SCH (08:38)
[2017-08-25] MEDS: Heparin - SQ 10,000 UNITS/ML Vial SQ SCH ×2 (10:20→21:13)
[2017-08-25] MEDS ORDERED: Pharmacy Ordered Lab Info OTHER ONE (10:45)
[2017-08-25] MEDS: Vancomycin Inj 1,500 MG in Sodium Chlor 0.9% Inj 500 ML IV.SIG SCH (14:54)
[2017-08-25] MEDS: Temazepam 15 MG Capsule PO PRN (23:42)
[2017-08-26] MEDS: Piperacil/Tazo 3.375 GM Premix 50 ML IV.SIG SCH ×2 (03:56→10:36)
--- NOTE | 2017-08-26 07:15 | P.PN ---
Subjective Interval history: late entry note from 08/25 visit minmal pain right heel afebrile Physical Exam Vital signs: Vital Signs 08/25/17 08:00 08/25/17 12:00 08/25/17 12:22 Temperature 97.7 F 98.2 F Pulse Rate 93 H 76 77 Respiratory Rate 18 18 Blood Pressure 144/67 H 124/67 Pulse Oximetry 94 L 95 08/25/17 16:00 08/25/17 16:22 08/25/17 20:30 Temperature 98.2 F Pulse Rate 78 77 79 Respiratory Rate 18 Blood Pressure 125/67 Pulse Oximetry 94 L 08/26/17 00:02 08/26/17 04:00 Temperature 97.3 F L Pulse Rate 87 84 Respiratory Rate 18 Blood Pressure 139/81 Pulse Oximetry 96 Intake & Output 08/25/17 08/26/17 08/26/17 18:59 06:59 18:59 Intake Total 340 / 340 200 / 200 Output Total 450 / 450 Balance -110 / -110 200 / 200 Weight 78.1 kg Intake: IV 100 / 100 200 / 200 Zosyn 3.375 GM Premix 50 ML @ 100 / 100 200 / 200 100 mls/hr IV.SIG Q6H RICARDO Rx#: [id number] Oral 240 / 240 Output: Urine 450 / 450 Narrative: GENERAL: This is a well-nourished, well-developed patient, in no apparent distress. CARDIOVASCULAR: Regular rate and rhythm without murmurs, gallops, or rubs. RESPIRATORY: Clear to auscultation. Breath sounds equal bilaterally. No wheezes , rales, or rhonchi. GASTROINTESTINAL: Abdomen soft, non-tender, nondistended. Normal active bowel sounds MUSCULOSKELETAL: Right heel dressing intact - nurse to call me for dressing change NEURO: Alert & Oriented x4 to person, place, time, situation. Moves all ext x4 - Urinary Catheter Management Straight Cath placed during this visit: yes Reason for continuing: Not indwelling catheter Insertion date: 08/21/17 Results - Labs CBC & Chem 7: 08/23/17 04:48 08/25/17 03:28 Laboratory Results - last 24 hr 08/25/17 08/25/17 08/25/17 08:31 11:59 14:35 POC Glucose 88 137 H Vancomycin Trough 14.9 H 08/25/17 08/25/17 08/25/17 18:02 19:06 21:12 POC Glucose 61 L 181 H 102 Vancomycin Trough Microbiology 08/21/17 19:25 Blood - Peripheral Aerobic Blood Culture - Preliminary No growth in 4 days 08/21/17 19:25 Blood - Peripheral Anaerobic Blood Culture - Preliminary No growth in 4 days 08/21/17 19:30 Blood - Peripheral Aerobic Blood Culture - Preliminary No growth in 4 days 08/21/17 19:30 Blood - Peripheral Anaerobic Blood Culture - Preliminary No growth in 4 days Assessment and Plan - Plan 52 years old female Sepsis secondary to Right heel diabetic foot ulcer with cellulitis- MRI suggestive of OM. on admission due to leukocytosis and tachycardic with source of right diabetic foot infection Wound culture shows strep B and MRSA. Await final culture results patient currently on IV Zosyn and IV vancomycin Status post podiatry - evaluation and bedside debridement.08/24 Status post extensive bedside I&D with podiatry. Broad-spectrum antibiotics with IV vancomycin and Zosyn. Pain control with [place] and morphine for break through pain. continue IV antibiotics- get ESR, CRP consider ID consult if + DM type 2 uncontrolled as OP now 88, 136, 61 Hold Levemer 20 units bid for now. get a1C monitor on sliding scale and restart long acting at lower dose bedside deiabetes education done- patient states good hypoglycemic awareness Hypokalemia. corrected hyponatremia likely due to hyperglycemia-improved DVT prophylaxisLovenox CM consult for DC planning- will need OP ff up with wound care on DC PT consult in am
--- NOTE | 2017-08-26 08:51 | P.PN ---
Subjective Interval history: pain on right heel with with even mild weightbearing afebrile Physical Exam Vital signs: Vital Signs 08/25/17 12:00 08/25/17 12:22 08/25/17 16:00 Temperature 98.2 F 98.2 F Pulse Rate 76 77 78 Respiratory Rate 18 18 Blood Pressure 124/67 125/67 Pulse Oximetry 95 94 L 08/25/17 16:22 08/25/17 20:30 08/26/17 00:02 Temperature Pulse Rate 77 79 87 Respiratory Rate Blood Pressure Pulse Oximetry 08/26/17 04:00 Temperature 97.3 F L Pulse Rate 84 Respiratory Rate 18 Blood Pressure 139/81 Pulse Oximetry 96 Intake & Output 08/25/17 08/26/17 08/26/17 18:59 06:59 18:59 Intake Total 340 / 340 800 / 800 Output Total 450 / 450 Balance -110 / -110 800 / 800 Weight 78.1 kg Intake: IV 100 / 100 200 / 200 Zosyn 3.375 GM Premix 50 ML @ 100 / 100 200 / 200 100 mls/hr IV.SIG Q6H RICARDO Rx#: [id number] Oral 240 / 240 600 / 600 Output: Urine 450 / 450 Other: # Voids 4 - Constitutional no acute distress - Routine HEENT Exam Head: Present: normocephalic Eye: Present: PERRL ENT: Present: mucous membranes moist - Routine Neck Exam Present: supple - Routine Respiratory Exam Present: CTA bilaterally - Routine Cardiovascular Exam Present: RRR - Routine Abdominal Exam Present: soft, normoactive bowel sounds (right foot with edema, ++ DP, swelling and erythema on the heel, with extensive black eschar, + foul odor emanating ) - Routine Extremities Exam Comments: right foot with pedal swelling, marked erythema of the right heel with about 5 cm x 4 cm black eschar with some foul odor emanating heel tender to touch ++ DP - Urinary Catheter Management Straight Cath placed during this visit: yes Reason for continuing: Not indwelling catheter Insertion date: 08/21/17 Results - Labs CBC & Chem 7: 08/23/17 04:48 08/26/17 09:00 Laboratory Results - last 24 hr 08/25/17 08/25/17 08/25/17 08:31 11:59 14:35 POC Glucose 88 137 H Vancomycin Trough 14.9 H 08/25/17 08/25/17 08/25/17 18:02 19:06 21:12 POC Glucose 61 L 181 H 102 Vancomycin Trough 08/26/17 08:38 POC Glucose 125 H Vancomycin Trough Microbiology 08/21/17 19:25 Blood - Peripheral Aerobic Blood Culture - Preliminary No growth in 4 days 08/21/17 19:25 Blood - Peripheral Anaerobic Blood Culture - Preliminary No growth in 4 days 08/21/17 19:30 Blood - Peripheral Aerobic Blood Culture - Preliminary No growth in 4 days 08/21/17 19:30 Blood - Peripheral Anaerobic Blood Culture - Preliminary No growth in 4 days Assessment and Plan - Plan 52 years old female Sepsis secondary to Right heel diabetic foot ulcer with cellulitis/OM - MRI + OM. Status post podiatry - evaluation and bedside debridement.08/22 No significant occlusive arterial disease on ELIGIO on admission due to leukocytosis and tachycardic with source of right diabetic foot infection was seen as OP- ER- given Clindamycin- failed to fill prescription Wound culture shows strep B and MRSA. Await final culture results patient currently on IV Zosyn and IV vancomycin will d/w Podiatry regarding MRI finding and may need repeat debridement and even VAC Broad-spectrum antibiotics with IV vancomycin and Zosyn. Pain control with [place] and morphine for break through pain. continue IV antibiotics- get ESR, CRP ID consult for recommendation Reconsult Podiatry- Dr. York--evaluate for repeat debridement- paged out to her DM type 2 uncontrolled as OP now 88, 136, 61 on Levemer 20 units bid. get a1C monitor on sliding scale and restart long acting at lower dose 5 units bid bedside diabetes education done- on Novolog 7 units tid patient states good hypoglycemic awareness patient complaining about our food- consult - segment assembler for recommendation Hypokalemia. corrected hyponatremia likely due to hyperglycemia-improved DVT prophylaxisLovenox CM consult for DC planning PT consult in am
--- NOTE | 2017-08-26 09:17 | P.CON ---
History of Present Illness Primary Care Provider: No Primary Care Physician Family Provider: No Primary Care Physician Chief Complaint: Weakness. PMFSH - History History Provided By: Patient, Medical Record - Medical History Medical History: Medical History (Last Reviewed 08/22/17 @ 06:24 by Carlyn Ennis) Benign hypertension Diabetes Hepatitis C virus - Surgical History Surgical History: Surgical History (Last Reviewed 08/22/17 @ 06:24 by Carlyn Ennis) Previous section - Tobacco History Second Hand Smoke Exposure: No Tobacco Use In Past 30 Days: Yes Smoking Status: Current every day smoker Tobacco Type: Cigarettes - Alcohol History How Often Do You Have a Drink Containing Alcohol: Never - Substance Use History Substance History: No History of Abuse - Immunization History Tetanus Immunization: Unable to Assess Hx Influenza Vaccine This Season: No Medications and Allergies Active Medications: Active Medications Acetaminophen (Tylenol) 650 mg PO Q6H PRN PRN Reason: PAIN SCALE 1 TO 2 Hydrocodone Bitart/Acetaminophen ([place] 5/325) 1 tab PO Q4H PRN PRN Reason: PAIN SCALE 3 TO 5 Last Admin: 08/22/17 13:04 Dose: 1 tab Hydrocodone Bitart/Acetaminophen ([place] 7.5/325) 1 tab PO Q4H PRN PRN Reason: PAIN SCALE 6 TO 10 Last Admin: 08/26/17 03:57 Dose: 1 tab Al Hydroxide/Mg Hydroxide (Milk Of Kristen Zamarripa) 30 ml PO Q12H PRN PRN Reason: Mild Constipation Bisacodyl (Dulcolax Supp) 10 mg RECTAL DAILY PRN PRN Reason: SEVERE CONSITIPATION Collagenase (Santyl Oint) 1 applicatio TOPICAL DAILY [facility] Last Admin: 08/25/17 08:38 Dose: 1 applicatio Dextrose (D50w Vial) 50 ml IV.PUSH UNSCH PRN PRN Reason: PER HYPOGLYCEMIA PROTOCOL Last Admin: 08/23/17 17:01 Dose: 50 ml Gabapentin (Neurontin) 100 mg PO TID [facility] Last Admin: 08/25/17 20:38 Dose: 100 mg Glucagon (Glucagon Inj) 1 mg OTHER PRN PRN PRN Reason: for Hypoglycemia Protocol Heparin Sodium (Porcine) (Heparin Inj) 5,000 units SQ Q12H [facility] Last Admin: 08/25/17 21:13 Dose: 5,000 units Pharmacy Profile Note (Vancomycin Consult Pharmacy) 0 mls @ 0 mls/hr OTHER UNSCH [facility] Piperacillin/Tazobactam/Dextrose (Zosyn 3.375 Gm Premix) 50 mls @ 100 mls/hr IV.SIG Q6H [facility] Last Infusion: 08/26/17 04:26 Dose: Infused Vancomycin HCl 1,500 mg/ (Sodium Chloride) 515 mls @ 250 mls/hr IV.SIG Q24H [facility] Last Admin: 08/25/17 14:54 Dose: 250 mls/hr Insulin Aspart (Novolog Inj) 7 units SQ TIDAC [facility]; Protocol Last Admin: 08/25/17 18:53 Dose: Not Given Lactulose (Lactulose Liq) 30 ml PO DAILY PRN PRN Reason: SEVERE CONSITIPATION Miscellaneous Information ([facility] Ordered Lab Info) 0 each OTHER ONCE ONE Stop: 08/27/17 10:46 Morphine Sulfate (Morphine Inj) 4 mg IV.PUSH Q1H PRN PRN Reason: Pain Scale 7-10 (Intractable) Last Admin: 08/24/17 23:10 Dose: 4 mg Naloxone HCl (Narcan Inj) 0.4 mg IV.PUSH UNSCH PRN PRN Reason: SEE LABEL COMMENTS Ondansetron HCl (Zofran Odt) 4 mg PO Q4H PRN PRN Reason: NAUSEA OR VOMITING Last Admin: 08/24/17 09:00 Dose: 4 mg Senna/Docusate Sodium (Belinda-Colace) 1 tab PO BID [facility] Last Admin: 08/25/17 21:13 Dose: 1 tab Sennosides (Senokot) 17.2 mg PO Q12H PRN PRN Reason: Moderate Constipation Temazepam (Restoril) 15 mg PO HS PRN PRN Reason: INSOMNIA Last Admin: 08/25/17 23:42 Dose: 15 mg Allergies Allergy/AdvReac Type Severity Reaction Status Date / Time No Known Allergies Allergy Unverified 08/02/17 06:11 Home Medications Medication Instructions Recorded Confirmed Type insulin detemir U-100 [Levemir 20 unit SUB-Q BID 08/22/17 08/22/17 History U-100 Insulin] Physical Exam Vital signs: Vital Signs 08/25/17 12:00 08/25/17 12:22 08/25/17 16:00 Temperature 98.2 F 98.2 F Pulse Rate 76 77 78 Respiratory Rate 18 18 Blood Pressure 124/67 125/67 Pulse Oximetry 95 94 L 08/25/17 16:22 08/25/17 20:30 08/26/17 00:02 Temperature Pulse Rate 77 79 87 Respiratory Rate Blood Pressure Pulse Oximetry 08/26/17 04:00 Temperature 97.3 F L Pulse Rate 84 Respiratory Rate 18 Blood Pressure 139/81 Pulse Oximetry 96 Intake & Output 08/25/17 08/26/17 08/26/17 18:59 06:59 18:59 Intake Total 340 / 340 800 / 800 Output Total 450 / 450 Balance -110 / -110 800 / 800 Weight 78.1 kg Intake: IV 100 / 100 200 / 200 Zosyn 3.375 GM Premix 50 ML @ 100 / 100 200 / 200 100 mls/hr IV.SIG Q6H [facility] Rx#: [id number] Oral 240 / 240 600 / 600 Output: Urine 450 / 450 Other: # Voids 4 - Urinary Catheter Management Straight Cath placed during this visit: yes Reason for continuing: Not indwelling catheter Insertion date: 08/21/17 Assessment and Plan - Plan 52 years old female Sepsis secondary to Right heel diabetic foot ulcer with cellulitis- MRI + OM. Status post podiatry - evaluation and bedside debridement.08/22 No significant occlusive arterial disease on ELIGIO on admission due to leukocytosis and tachycardic with source of right diabetic foot infection was seen as OP- ER- given Clindamycin- failed to fill prescription Wound culture shows strep B and MRSA. Await final culture results patient currently on IV Zosyn and IV vancomycin will d/w Podiatry regarding MRI finding and may need repeat debridement and even VAC Broad-spectrum antibiotics with IV vancomycin and Zosyn. Pain control with [place] and morphine for break through pain. continue IV antibiotics- get ESR, CRP ID consult Reconsult Podiatry- seen by Dr. York- call out to them- - ? may even need VAC DM type 2 uncontrolled as OP now 88, 136, 61 Hold Levemer 20 units bid for now. get a1C monitor on sliding scale and restart long acting at lower dose bedside diabetes education done- patient states good hypoglycemic awareness patient complaining about our food- consult - marker hand for recommendation Hypokalemia. corrected hyponatremia likely due to hyperglycemia-improved DVT prophylaxisLovenox CM consult for DC planning PT consult in am
[2017-08-26 09:50] LABS: Glomerular Filtration Rate 69 mL/min (>89)
[2017-08-26 10:36] LABS: Alanine Aminotransferase 12 U/L (10-53); Albumin 1.7 g/dL (3.4-5.0); Alkaline Phosphatase 310 U/L (45-117); Anion Gap 10 meq/L (5-15); Aspartate Aminotransferase 18 U/L (15-37); Blood Urea Nitrogen 10 mg/dL (7-18); Calcium 8.4 mg/dL (8.5-10.1); Carbon Dioxide 25.2 meq/L (21.0-32.0); Chloride 100 meq/L (98-107); Glucose,Random 108 mg/dL (74-106); Potassium 4.4 meq/L (3.5-5.1); Sodium 135 meq/L (136-145); Total Protein 7.7 g/dL (6.4-8.2)
[2017-08-26] MEDS: Heparin - SQ 10,000 UNITS/ML Vial SQ SCH ×2 (10:36→21:16)
[2017-08-26] MEDS: Gabapentin 100 MG Capsule PO SCH ×3 (10:37→18:52)
[2017-08-26] MEDS: Senna/Docusate Sodium 8.6/50 MG Tablet PO SCH ×2 (10:37→21:16)
[2017-08-26] MEDS: Collagenase Oint 30 GM Tube TOPICAL SCH (10:38)
[2017-08-26] MEDS: Vancomycin Inj 1,500 MG in Sodium Chlor 0.9% Inj 500 ML IV.SIG SCH (13:48)
[2017-08-26 14:18] LABS: Hemoglobin A1c 13.4 % (4.3-6.0)
--- NOTE | 2017-08-26 14:18 | P.CONID ---
History of Present Illness Service: ID Consult date: 08/26/17 Requesting Physician: Yen Koch Reason for Consult: Evaluation and management of osteomyelitis Primary Care Provider: No Primary Care Physician Family Provider: No Primary Care Physician Chief Complaint: Weakness. History of Present Illness: Ms. Middleton is a 52-year-old female with past medical history significant for diabetes who was prescribed insulin but unfortunately has not been able to buy her insulin due to financial reasons. Patient reports that she moved approximately a year back from [place] currently lives in a rental apartment. 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 Patient reports that she has a very small opening in the right heel which is progressively increased in size and has been present for several weeks probably months. She now presents with 1 day history of extreme weakness and inability to walk. She reports that her employers at work often sent her back home due to progressive increase in the swelling of the right leg. Patient reports her landlord came to check in on her and found her unable to walk. Of note patient was in the ER about 2 weeks ago and was prescribed antibiotics however she was not able to afford these or her insulin and so is admitted now with above complaints. Pertinent positives and negatives: Patient denies any chest pain shortness of breath, fever chills or night sweats. Past medical history: Hypertension Diabetes Hepatitis C virus Past surgical history Previous section Review of Systems All other systems reviewed negative except as stated in HPI [facility] - History History Provided By: Patient, Medical Record - Medical History Medical History: Medical History (Last Reviewed 08/22/17 @ 06:24 by Carlyn Ennis) Benign hypertension Diabetes Hepatitis C virus - Surgical History Surgical History: Surgical History (Last Reviewed 08/22/17 @ 06:24 by Carlyn Ennis) Previous section - Tobacco History Second Hand Smoke Exposure: No Tobacco Use In Past 30 Days: Yes Smoking Status: Current every day smoker Tobacco Type: Cigarettes - Alcohol History How Often Do You Have a Drink Containing Alcohol: Never - Substance Use History Substance History: No History of Abuse - Immunization History Tetanus Immunization: Unable to Assess Hx Influenza Vaccine This Season: No Medications and Allergies Active Medications: Active Medications Acetaminophen (Tylenol) 650 mg PO Q6H PRN PRN Reason: PAIN SCALE 1 TO 2 Hydrocodone Bitart/Acetaminophen ([place] 5/325) 1 tab PO Q4H PRN PRN Reason: PAIN SCALE 3 TO 5 Last Admin: 08/22/17 13:04 Dose: 1 tab Hydrocodone Bitart/Acetaminophen ([place] 7.5/325) 1 tab PO Q4H PRN PRN Reason: PAIN SCALE 6 TO 10 Last Admin: 08/26/17 10:35 Dose: 1 tab Al Hydroxide/Mg Hydroxide (Milk Of Magnesia Liq) 30 ml PO Q12H PRN PRN Reason: Mild Constipation Bisacodyl (Dulcolax Supp) 10 mg RECTAL DAILY PRN PRN Reason: SEVERE CONSITIPATION Collagenase (Santyl Oint) 1 applicatio TOPICAL DAILY [facility] Last Admin: 08/26/17 10:38 Dose: 1 applicatio Dextrose (D50w Vial) 50 ml IV.PUSH UNSCH PRN PRN Reason: PER HYPOGLYCEMIA PROTOCOL Last Admin: 08/23/17 17:01 Dose: 50 ml Gabapentin (Neurontin) 100 mg PO TID [facility] Last Admin: 08/26/17 13:49 Dose: 100 mg Glucagon (Glucagon Inj) 1 mg OTHER PRN PRN PRN Reason: for Hypoglycemia Protocol Heparin Sodium (Porcine) (Heparin Inj) 5,000 units SQ Q12H [facility] Last Admin: 08/26/17 10:36 Dose: 5,000 units Pharmacy Profile Note (Vancomycin Consult Pharmacy) 0 mls @ 0 mls/hr OTHER UNSCH [facility] Piperacillin/Tazobactam/Dextrose (Zosyn 3.375 Gm Premix) 50 mls @ 100 mls/hr IV.SIG Q6H [facility] Last Admin: 08/26/17 10:36 Dose: 100 mls/hr Vancomycin HCl 1,500 mg/ (Sodium Chloride) 515 mls @ 250 mls/hr IV.SIG Q24H [facility] Last Admin: 08/26/17 13:48 Dose: 250 mls/hr Insulin Aspart (Novolog Inj) 7 units SQ TIDAC [facility]; Protocol Last Admin: 08/26/17 13:50 Dose: 7 units Lactulose (Lactulose Liq) 30 ml PO DAILY PRN PRN Reason: SEVERE CONSITIPATION Miscellaneous Information ([facility] [place] [facility] Ordered Lab Info) 0 each OTHER ONCE ONE Stop: 08/27/17 10:46 Morphine Sulfate (Morphine Inj) 4 mg IV.PUSH Q1H PRN PRN Reason: Pain Scale 7-10 (Intractable) Last Admin: 08/24/17 23:10 Dose: 4 mg Naloxone HCl (Narcan Inj) 0.4 mg IV.PUSH UNSCH PRN PRN Reason: SEE LABEL COMMENTS Ondansetron HCl (Zofran Odt) 4 mg PO Q4H PRN PRN Reason: NAUSEA OR VOMITING Last Admin: 08/24/17 09:00 Dose: 4 mg Senna/Docusate Sodium (Belinda-Colace) 1 tab PO BID [facility] Last Admin: 08/26/17 10:37 Dose: 1 tab Sennosides (Senokot) 17.2 mg PO Q12H PRN PRN Reason: Moderate Constipation Temazepam (Restoril) 15 mg PO HS PRN PRN Reason: INSOMNIA Last Admin: 08/25/17 23:42 Dose: 15 mg Allergies Allergy/AdvReac Type Severity Reaction Status Date / Time No Known Allergies Allergy Unverified 08/02/17 06:11 Home Medications Medication Instructions Recorded Confirmed Type insulin detemir U-100 [Levemir 20 unit SUB-Q BID 08/22/17 08/22/17 History U-100 Insulin] Exam Vital signs: Vital Signs 08/25/17 16:00 08/25/17 16:22 08/25/17 20:30 Temperature 98.2 F Pulse Rate 78 77 79 Respiratory Rate 18 Blood Pressure 125/67 Pulse Oximetry 94 L 08/26/17 00:02 08/26/17 04:00 08/26/17 08:00 Temperature 97.3 F L 98.4 F Pulse Rate 87 84 74 Respiratory Rate 18 20 Blood Pressure 139/81 129/63 Pulse Oximetry 96 94 L 08/26/17 12:00 Temperature Pulse Rate 75 Respiratory Rate Blood Pressure Pulse Oximetry Intake & Output 08/25/17 08/26/17 08/26/17 18:59 06:59 18:59 Intake Total 855 / 855 800 / 800 Output Total 450 / 450 Balance 405 / 405 800 / 800 Weight 78.1 kg Intake: IV 615 / 615 200 / 200 Zosyn 3.375 GM Premix 50 ML @ 100 / 100 200 / 200 100 mls/hr IV.SIG Q6H [facility] Rx#: [id number] Vancomycin Inj 1,500 MG In NS 515 / 515 Inj 500 ML @ 250 mls/hr IV.SIG Q24H [facility] Rx#:[id number] Oral 240 / 240 600 / 600 Output: Urine 450 / 450 Other: # Voids 4 Narrative: GENERAL: Well-nourished well-developed, not in acute distress SKIN: Cool and dry, no generalized rash HEAD: Atraumatic. Normocephalic. No temporal or scalp tenderness. EYES: Pupils equal round and reactive. Scleral icterus. No injection or drainage. No petechia ENT: Nothing abnormal detected NECK: Trachea midline. Supple, nontender, no meningeal signs. CARDIOVASCULAR: HS audible. RESPIRATORY: Clear to auscultation bilaterally. GASTROINTESTINAL: Abdomen soft nontender. MUSCULOSKELETAL: Right foot and bandage patient deferred examination at the dressing was just changed. Discussed with Dr. York. NEUROLOGICAL: Alert oriented 3. Nonfocal. Psych cooperative IV line sites ok. Results - Labs CBC & Chem 7: 08/23/17 04:48 08/26/17 09:00 Labs: Laboratory Results - last 24 hr 08/25/17 08/25/17 08/25/17 14:35 18:02 19:06 ESR Sodium Potassium Chloride Carbon Dioxide Anion Gap BUN Creatinine Estimated GFR POC Glucose 61 L 181 H Random Glucose Calcium Prot Corrected Calcium Total Bilirubin AST ALT Alkaline Phosphatase C-Reactive Protein Total Protein Albumin Vancomycin Trough 14.9 H 08/25/17 08/26/17 08/26/17 21:12 08:38 09:00 ESR Sodium 135 L Potassium 4.4 Chloride 100 Carbon Dioxide 25.2 Anion Gap 10 BUN 10 Creatinine 0.86 Estimated GFR 69 L POC Glucose 102 125 H Random Glucose 108 H Calcium 8.4 L Prot Corrected Calcium Total Bilirubin 0.3 AST 18 ALT 12 Alkaline Phosphatase 310 H C-Reactive Protein 6.10 H Total Protein 7.7 D Albumin 1.7 L Vancomycin Trough 08/26/17 08/26/17 08/26/17 09:00 09:00 09:00 ESR Greater than 140 H Sodium Cancelled Potassium Cancelled Chloride Cancelled Carbon Dioxide Cancelled Anion Gap Cancelled BUN Cancelled Creatinine Cancelled Estimated GFR Cancelled POC Glucose Random Glucose Cancelled Calcium Cancelled Prot Corrected Calcium Cancelled Total Bilirubin Cancelled AST Cancelled ALT Cancelled Alkaline Phosphatase Cancelled C-Reactive Protein Cancelled Total Protein Cancelled Albumin Cancelled Vancomycin Trough 08/26/17 12:15 ESR Sodium Potassium Chloride Carbon Dioxide Anion Gap BUN Creatinine Estimated GFR POC Glucose 281 H Random Glucose Calcium Prot Corrected Calcium Total Bilirubin AST ALT Alkaline Phosphatase C-Reactive Protein Total Protein Albumin Vancomycin Trough - Imaging ITS Impressions Chest X-Ray 08/21/17 19:27 CONCLUSION: Negative examination. Foot X-Ray 08/21/17 20:40 CONCLUSION: Soft tissue defect overlying the heel. No radiographic evidence to clearly suggest osteomyelitis. Extremity Arterial Study 08/22/17 20:03 CONCLUSION: 1. Mild diminished TBI on the left. 2. The ABIs are within normal limits down to both ankles. No significant vascular occlusive disease is demonstrated.. Foot MRI 08/24/17 00:00 CONCLUSION: Prominent plantar cutaneous ulceration heel with adjacent mild soft tissue enhancement indicating cellulitis in the proper clinical setting. Ulceration extends to the posterior lateral plantar surface of the calcaneus. Adjacent mild bony edema is noted suggesting osteomyelitis. No bone erosion. Assessment and Plan - Plan Right foot osteomyelitis Right foot chronic ulcer Diabetic foot infection with ulcer. MRSA and group A strep infection of the foot ulcer Diabetes mellitus noncompliant with medications due to social factors Recommendations Continue vancomycin IV Discontinue Zosyn IV Follow cultures Follow clinically Discussed with Dr. York patient would need completion of IV antibiotics and staying off of her foot is nonweightbearing for any chance of this to heal and get better. Patient moved here from [place] and has financial concerns with placing a Case management consult.
[2017-08-26] MEDS: Temazepam 15 MG Capsule PO PRN (21:16)
[2017-08-26] MEDS: Insulin Detemir Inj 1,000 UNIT/10 ML Vial SQ SCH (21:21)
--- NOTE | 2017-08-26 21:41 | P.PNPOD ---
Subjective Interval history: Patient seen bedside. States she is nervous about possibly loosing her leg like her diabetic friend. She denies any N,V,F,CH. She does have pain to right heel. Physical Exam Vital signs: Vital Signs 08/26/17 00:02 08/26/17 04:00 08/26/17 08:00 Temperature 97.3 F L 98.4 F Pulse Rate 87 84 74 Respiratory Rate 18 20 Blood Pressure 139/81 129/63 Pulse Oximetry 96 94 L 08/26/17 12:00 08/26/17 15:43 08/26/17 16:00 Temperature 97.9 F 98.6 F Pulse Rate 77 82 78 Respiratory Rate 20 19 Blood Pressure 156/89 H 152/87 H Pulse Oximetry 94 L 93 L Intake & Output 08/26/17 08/26/17 08/27/17 06:59 18:59 06:59 Intake Total 800 / 800 380 / 380 Output Total 900 / 900 Balance 800 / 800 -520 / -520 Weight 78.1 kg Intake: IV 200 / 200 Zosyn 3.375 GM Premix 50 ML @ 200 / 200 100 mls/hr IV.SIG Q6H [facility] Rx#: [id number] Oral 600 / 600 380 / 380 Output: Urine 900 / 900 Other: # Voids 4 # Bowel Movements 0 Narrative: Lower extremity physical exam: Vascular: Dorsalis pedis 2/4, posterior tibial nonpalpable. Capillary refill time within normal limits to digits 5 bilateral foot. Edema present right foot and ankle Neuro: Gross sensation intact to bilateral lower extremity. Pinpoint sensation decreased. No hyperalgesia noted to bilateral lower extremity Dermatology: Right heel ulcer with fibro necrotic base and hyperkeratotic borders. Mild fluctuance to the plantar posterior aspect. Malodor noted. Musculoskeletal: Tender to palpation to right posterior heel ulcer. Medications and Allergies Active Medications: Active Medications Acetaminophen (Tylenol) 650 mg PO Q6H PRN PRN Reason: PAIN SCALE 1 TO 2 Hydrocodone Bitart/Acetaminophen ([place] 5/325) 1 tab PO Q4H PRN PRN Reason: PAIN SCALE 3 TO 5 Last Admin: 08/22/17 13:04 Dose: 1 tab Hydrocodone Bitart/Acetaminophen ([place] 7.5/325) 1 tab PO Q4H PRN PRN Reason: PAIN SCALE 6 TO 10 Last Admin: 08/26/17 21:16 Dose: 1 tab Al Hydroxide/Mg Hydroxide (Milk Of Magnesia Liq) 30 ml PO Q12H PRN PRN Reason: Mild Constipation Bisacodyl (Dulcolax Supp) 10 mg RECTAL DAILY PRN PRN Reason: SEVERE CONSITIPATION Collagenase (Santyl Oint) 1 applicatio TOPICAL DAILY [facility] Last Admin: 08/26/17 10:38 Dose: 1 applicatio Dextrose (D50w Vial) 50 ml IV.PUSH UNSCH PRN PRN Reason: PER HYPOGLYCEMIA PROTOCOL Last Admin: 08/23/17 17:01 Dose: 50 ml Gabapentin (Neurontin) 100 mg PO TID [facility] Last Admin: 08/26/17 18:52 Dose: 100 mg Glucagon (Glucagon Inj) 1 mg OTHER PRN PRN PRN Reason: for Hypoglycemia Protocol Heparin Sodium (Porcine) (Heparin Inj) 5,000 units SQ Q12H [facility] Last Admin: 08/26/17 21:16 Dose: 5,000 units Pharmacy Profile Note (Vancomycin Consult Pharmacy) 0 mls @ 0 mls/hr OTHER UNSCH [facility] Vancomycin HCl 1,500 mg/ (Sodium Chloride) 515 mls @ 250 mls/hr IV.SIG Q24H [facility] Last Admin: 08/26/17 13:48 Dose: 250 mls/hr Insulin Aspart (Novolog Inj) 7 units SQ TIDAC [facility]; Protocol Last Admin: 08/26/17 21:36 Dose: 7 units Insulin Aspart (Novolog Insulin Suppl Scale Inj) 0 unit SQ ACHS AND 3AM [facility]; Protocol Insulin Detemir (Levemir Inj) 5 unit SQ BID [facility] Last Admin: 08/26/17 21:21 Dose: 5 unit Lactulose (Lactulose Liq) 30 ml PO DAILY PRN PRN Reason: SEVERE CONSITIPATION Miscellaneous Information ([facility] [place] [facility] Ordered Lab Info) 0 each OTHER ONCE ONE Stop: 08/27/17 10:46 Morphine Sulfate (Morphine Inj) 4 mg IV.PUSH Q1H PRN PRN Reason: Pain Scale 7-10 (Intractable) Last Admin: 08/24/17 23:10 Dose: 4 mg Naloxone HCl (Narcan Inj) 0.4 mg IV.PUSH UNSCH PRN PRN Reason: SEE LABEL COMMENTS Ondansetron HCl (Zofran Odt) 4 mg PO Q4H PRN PRN Reason: NAUSEA OR VOMITING Last Admin: 08/24/17 09:00 Dose: 4 mg Senna/Docusate Sodium (Belinda-Colace) 1 tab PO BID [facility] Last Admin: 08/26/17 21:16 Dose: 1 tab Sennosides (Senokot) 17.2 mg PO Q12H PRN PRN Reason: Moderate Constipation Temazepam (Restoril) 15 mg PO HS PRN PRN Reason: INSOMNIA Last Admin: 08/26/17 21:16 Dose: 15 mg Allergies Allergy/AdvReac Type Severity Reaction Status Date / Time No Known Allergies Allergy Unverified 08/02/17 06:11 Home Medications Medication Instructions Recorded Confirmed Type insulin detemir U-100 [Levemir 20 unit SUB-Q BID 08/22/17 08/22/17 History U-100 Insulin] Results - Labs CBC & Chem 7: 08/23/17 04:48 08/26/17 09:00 Laboratory Results - last 24 hr 08/26/17 08/26/17 08/26/17 08:38 09:00 09:00 ESR Greater than 140 H Sodium 135 L Potassium 4.4 Chloride 100 Carbon Dioxide 25.2 Anion Gap 10 BUN 10 Creatinine 0.86 Estimated GFR 69 L POC Glucose 125 H Random Glucose 108 H Hemoglobin A1c Calcium 8.4 L Prot Corrected Calcium Total Bilirubin 0.3 AST 18 ALT 12 Alkaline Phosphatase 310 H C-Reactive Protein 6.10 H Total Protein 7.7 D Albumin 1.7 L 08/26/17 08/26/17 08/26/17 09:00 09:00 09:00 ESR Sodium Cancelled Potassium Cancelled Chloride Cancelled Carbon Dioxide Cancelled Anion Gap Cancelled BUN Cancelled Creatinine Cancelled Estimated GFR Cancelled POC Glucose Random Glucose Cancelled Hemoglobin A1c 13.4 H Calcium Cancelled Prot Corrected Calcium Cancelled Total Bilirubin Cancelled AST Cancelled ALT Cancelled Alkaline Phosphatase Cancelled C-Reactive Protein Cancelled Total Protein Cancelled Albumin Cancelled 08/26/17 08/26/17 08/26/17 12:15 16:37 21:27 ESR Sodium Potassium Chloride Carbon Dioxide Anion Gap BUN Creatinine Estimated GFR POC Glucose 281 H 431 H 309 H Random Glucose Hemoglobin A1c Calcium Prot Corrected Calcium Total Bilirubin AST ALT Alkaline Phosphatase C-Reactive Protein Total Protein Albumin Microbiology 08/21/17 19:25 Blood - Peripheral Aerobic Blood Culture - Final No growth in 5 days 08/21/17 19:25 Blood - Peripheral Anaerobic Blood Culture - Final No growth in 5 days 08/21/17 19:30 Blood - Peripheral Aerobic Blood Culture - Final No growth in 5 days 08/21/17 19:30 Blood - Peripheral Anaerobic Blood Culture - Final No growth in 5 days Assessment and Plan - Plan 52-year-old female with right posterior heel ulcer Patient examined and evaluated with all questions answered MRI positive for OM Full-thickness excisional debridement performed to right heel bedside however patient may need surgical intervention Dr. Valentine to evaluate for surgical intervention as she will be taking over patients care tomorrow Dressing placed with Héctor and KHANG Discussed risk of limb loss and need to non weight bearing. Ordered heel offloading boot
[2017-08-26] MEDS: Insulin NovoLOG Aspart Correctional Sugar Inj SQ SCH (22:15)
[2017-08-27] MEDS: Morphine Inj 4 MG/ML Vial IV.PUSH PRN ×2 (00:07→06:06)
[2017-08-27] MEDS: Insulin NovoLOG Aspart Correctional Sugar Inj SQ SCH ×6 (03:00→20:00)
[2017-08-27] MEDS: Gabapentin 100 MG Capsule PO SCH ×3 (08:47→18:22)
[2017-08-27] MEDS: Senna/Docusate Sodium 8.6/50 MG Tablet PO SCH ×2 (08:48→23:46)
[2017-08-27] MEDS: Insulin Detemir Inj 1,000 UNIT/10 ML Vial SQ SCH ×2 (08:53→23:47)
[2017-08-27] MEDS: Collagenase Oint 30 GM Tube TOPICAL SCH (09:00)
[2017-08-27] MEDS ORDERED: Pharmacy Ordered Lab Info OTHER ONE (10:45)
[2017-08-27] MEDS: Heparin - SQ 10,000 UNITS/ML Vial SQ SCH ×2 (11:36→23:46)
[2017-08-27] MEDS: Vancomycin Inj 1,500 MG in Sodium Chlor 0.9% Inj 500 ML IV.SIG SCH (12:40)
--- NOTE | 2017-08-27 13:07 | P.PN ---
Subjective Interval history: no complains of pain awaiting surgery this pm hungry and wanting to leave AMA discussed with her- that procedure is improtant or else she would loose her foot Physical Exam Vital signs: Vital Signs 08/26/17 15:43 08/26/17 16:00 08/26/17 20:00 Temperature 98.6 F 98.1 F Pulse Rate 82 78 96 H Respiratory Rate 19 18 Blood Pressure 152/87 H 144/78 H Pulse Oximetry 93 L 97 08/27/17 00:00 08/27/17 04:00 08/27/17 04:45 Temperature 98 F 97.9 F Pulse Rate 80 85 70 Respiratory Rate 16 18 Blood Pressure 118/56 L 121/62 Pulse Oximetry 97 95 08/27/17 08:00 Temperature 98.1 F Pulse Rate 58 L Respiratory Rate 20 Blood Pressure 136/80 Pulse Oximetry 94 L Intake & Output 08/26/17 08/27/17 08/27/17 18:59 06:59 18:59 Intake Total 380 / 380 480 / 480 515 / 515 Output Total 900 / 900 800 / 800 Balance -520 / -520 -320 / -320 515 / 515 Weight 78.5 kg Intake: IV 515 / 515 Vancomycin Inj 1,500 MG In NS 515 / 515 Inj 500 ML @ 250 mls/hr IV.SIG Q24H [facility] Rx#:[id number] Oral 380 / 380 480 / 480 Output: Urine 900 / 900 800 / 800 Other: # Voids 2 # Bowel Movements 0 0 Narrative: awake and alert no complains of pain anicteric lungs- no rales regular rhytm abdomen-soft, notnender right foot- right heel with necrtoic eschar with surrounding eruthema, somefoul smelling odor emanating, ++ pulses - Urinary Catheter Management Straight Cath placed during this visit: yes Reason for continuing: Not indwelling catheter Insertion date: 08/21/17 Results - Labs CBC & Chem 7: 08/23/17 04:48 08/26/17 09:00 Laboratory Results - last 24 hr 08/26/17 08/26/17 08/26/17 09:00 16:37 21:27 POC Glucose 431 H 309 H Hemoglobin A1c 13.4 H Vancomycin Trough 08/27/17 08/27/17 08/27/17 03:30 07:42 11:31 POC Glucose 117 H 114 H 181 H Hemoglobin A1c Vancomycin Trough 08/27/17 11:45 POC Glucose Hemoglobin A1c Vancomycin Trough 18.9 H Microbiology 08/21/17 19:25 Blood - Peripheral Aerobic Blood Culture - Final No growth in 5 days 08/21/17 19:25 Blood - Peripheral Anaerobic Blood Culture - Final No growth in 5 days 08/21/17 19:30 Blood - Peripheral Aerobic Blood Culture - Final No growth in 5 days 08/21/17 19:30 Blood - Peripheral Anaerobic Blood Culture - Final No growth in 5 days Assessment and Plan - Plan 52 years old female Sepsis secondary to Right heel diabetic foot ulcer with cellulitis/OM - MRI + OM. Status post podiatry - evaluation and bedside debridement.08/22 No significant occlusive arterial disease on ELIGIO on admission due to leukocytosis and tachycardic with source of right diabetic foot infection was seen as OP- ER- given Clindamycin- failed to fill prescription appreciate Eulalia- roger - on antiibitcs Podiatry taking her to surgery this pm DM type 2 uncontrolled as OP now 88, 136, 61 on Levemer 20 units bid. get a1C monitor on sliding scale and restart long acting at lower dose 5 units bid bedside diabetes education done- on Novolog 7 units tid patient states good hypoglycemic awareness patient complaining about our food- consult - ostomy nurse for recommendation start D5 NS while waiting for procedure Hypokalemia. corrected hyponatremia likely due to hyperglycemia-improved DVT prophylaxisLovenox CM consult for DC planning PT consult post surgery
--- NOTE | 2017-08-27 14:10 | P.PNID ---
Subjective Remarks: Ms. Middleton is a 52-year-old female with past medical history significant for diabetes who was prescribed insulin but unfortunately has not been able to buy her insulin due to financial reasons. Patient reports that she moved approximately a year back from [place] currently lives in a rental apartment. 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 Patient reports that she has a very small opening in the right heel which is progressively increased in size and has been present for several weeks probably months. She now presents with 1 day history of extreme weakness and inability to walk. She reports that her employers at work often sent her back home due to progressive increase in the swelling of the right leg. Patient reports her landlord came to check in on her and found her unable to walk. Of note patient was in the ER about 2 weeks ago and was prescribed antibiotics however she was not able to afford these or her insulin and so is admitted now with above complaints. Overnight events reviewed. No fever No rash No diarrhea Is upset because she is n.p.o. and is hungry. Explained to her that it is important that she undergo surgery so that we can figure out the extent of her disease as well as what antibiotics to her with. Antibiotics: Vanco IV Lines: Lines okay. Past Medical History: Past medical history: Hypertension Diabetes Hepatitis C virus Past surgical history Previous section Allergies/Adverse Reactions: Allergies No Known Allergies Allergy (Unverified 08/02/17 06:11) Objective Vital Signs 08/26/17 15:43 08/26/17 16:00 08/26/17 20:00 Temperature 98.6 F 98.1 F Pulse Rate 82 78 96 H Respiratory Rate 19 18 Blood Pressure 152/87 H 144/78 H Pulse Oximetry 93 L 97 08/27/17 00:00 08/27/17 04:00 08/27/17 04:45 Temperature 98 F 97.9 F Pulse Rate 80 85 70 Respiratory Rate 16 18 Blood Pressure 118/56 L 121/62 Pulse Oximetry 97 95 08/27/17 08:00 Temperature 98.1 F Pulse Rate 58 L Respiratory Rate 20 Blood Pressure 136/80 Pulse Oximetry 94 L Intake & Output 08/26/17 08/27/17 08/27/17 18:59 06:59 18:59 Intake Total 380 / 380 480 / 480 515 / 515 Output Total 900 / 900 800 / 800 Balance -520 / -520 -320 / -320 515 / 515 Weight 78.5 kg Intake: IV 515 / 515 Vancomycin Inj 1,500 MG In NS 515 / 515 Inj 500 ML @ 250 mls/hr IV.SIG Q24H [facility] Rx#:[id number] Oral 380 / 380 480 / 480 Output: Urine 900 / 900 800 / 800 Other: # Voids 2 # Bowel Movements 0 0 08/21/17 19:25 Blood - Peripheral Aerobic Blood Culture - Final No growth in 5 days 08/21/17 19:25 Blood - Peripheral Anaerobic Blood Culture - Final No growth in 5 days 08/21/17 19:30 Blood - Peripheral Aerobic Blood Culture - Final No growth in 5 days 08/21/17 19:30 Blood - Peripheral Anaerobic Blood Culture - Final No growth in 5 days Lab - Hematology Results 08/26/17 09:00 ESR Greater than 140 H Lab - Chemistry Results 08/25/17 08/25/17 08/25/17 18:02 19:06 21:12 Sodium Potassium Chloride Carbon Dioxide Anion Gap BUN Creatinine Estimated GFR POC Glucose 61 L 181 H 102 Random Glucose Hemoglobin A1c Calcium Prot Corrected Calcium Total Bilirubin AST ALT Alkaline Phosphatase C-Reactive Protein Total Protein Albumin 08/26/17 08/26/17 08/26/17 08:38 09:00 09:00 Sodium 135 L Potassium 4.4 Chloride 100 Carbon Dioxide 25.2 Anion Gap 10 BUN 10 Creatinine 0.86 Estimated GFR 69 L POC Glucose 125 H Random Glucose 108 H Hemoglobin A1c Calcium 8.4 L Prot Corrected Calcium Total Bilirubin 0.3 AST 18 ALT 12 Alkaline Phosphatase 310 H C-Reactive Protein 6.10 H Cancelled Total Protein 7.7 D Albumin 1.7 L 08/26/17 08/26/17 08/26/17 09:00 09:00 12:15 Sodium Cancelled Potassium Cancelled Chloride Cancelled Carbon Dioxide Cancelled Anion Gap Cancelled BUN Cancelled Creatinine Cancelled Estimated GFR Cancelled POC Glucose 281 H Random Glucose Cancelled Hemoglobin A1c 13.4 H Calcium Cancelled Prot Corrected Calcium Cancelled Total Bilirubin Cancelled AST Cancelled ALT Cancelled Alkaline Phosphatase Cancelled C-Reactive Protein Total Protein Cancelled Albumin Cancelled 08/26/17 08/26/17 08/27/17 16:37 21:27 03:30 Sodium Potassium Chloride Carbon Dioxide Anion Gap BUN Creatinine Estimated GFR POC Glucose 431 H 309 H 117 H Random Glucose Hemoglobin A1c Calcium Prot Corrected Calcium Total Bilirubin AST ALT Alkaline Phosphatase C-Reactive Protein Total Protein Albumin 08/27/17 08/27/17 07:42 11:31 Sodium Potassium Chloride Carbon Dioxide Anion Gap BUN Creatinine Estimated GFR POC Glucose 114 H 181 H Random Glucose Hemoglobin A1c Calcium Prot Corrected Calcium Total Bilirubin AST ALT Alkaline Phosphatase C-Reactive Protein Total Protein Albumin Imaging: ITS Impressions Chest X-Ray 08/21/17 19:27 CONCLUSION: Negative examination. Foot X-Ray 08/21/17 20:40 CONCLUSION: Soft tissue defect overlying the heel. No radiographic evidence to clearly suggest osteomyelitis. Extremity Arterial Study 08/22/17 20:03 CONCLUSION: 1. Mild diminished TBI on the left. 2. The ABIs are within normal limits down to both ankles. No significant vascular occlusive disease is demonstrated.. Foot MRI 08/24/17 00:00 CONCLUSION: Prominent plantar cutaneous ulceration heel with adjacent mild soft tissue enhancement indicating cellulitis in the proper clinical setting. Ulceration extends to the posterior lateral plantar surface of the calcaneus. Adjacent mild bony edema is noted suggesting osteomyelitis. No bone erosion. Physical Exam: GENERAL: Well-nourished well-developed, not in acute distress SKIN: Cool and dry, no generalized rash HEAD: Atraumatic. Normocephalic. No temporal or scalp tenderness. EYES: Pupils equal round and reactive. Scleral icterus. No injection or drainage. No petechia ENT: Nothing abnormal detected NECK: Trachea midline. Supple, nontender, no meningeal signs. CARDIOVASCULAR: HS audible. RESPIRATORY: Clear to auscultation bilaterally. GASTROINTESTINAL: Abdomen soft nontender. MUSCULOSKELETAL: Deferred extremity examination as it was in a dressing and she was upset. NEUROLOGICAL: Alert oriented 3. Nonfocal. Psych cooperative IV line sites ok. Assessment and Plan - Plan Right foot osteomyelitis Right foot chronic ulcer Diabetic foot infection with ulcer. MRSA and group A strep infection of the foot ulcer Diabetes mellitus noncompliant with medications due to social factors Recommendations Continue vancomycin IV Follow cultures Follow clinically Discussed with Dr. Valentine: to OR today for debridement. Asked her to collect specimen for pathology and micro. Discussed with RN Discussed with Dr. Koch
[2017-08-27] MEDS ORDERED: Dextrose 5%/NaCl 0.9% Inj 1,000 ML IV.CONT SCH (15:00)
[2017-08-27] MEDS ORDERED: Chlorhexidine Gluconate 2% 1 Pack (2 Cloths) TOPICAL SCH (16:15)
[2017-08-27] MEDS ORDERED: Metoprolol Tartrate 25 MG Tablet PO SCH (16:15)
[2017-08-27] MEDS ORDERED: Sodium Chlor 0.9% Inj 500 ML IV.SIG SCH (17:00)
[2017-08-27] MEDS ORDERED: Bupivacaine PF 0.5% Inj 30 ML Vial ONE (21:41)
--- NOTE | 2017-08-27 22:46 | P.BOP ---
- Preoperative Diagnosis (1) Ulcer of right heel and midfoot with necrosis of bone (2) Acute osteomyelitis of right calcaneus (3) Cellulitis of foot, right - Postoperative Diagnosis (1) Cellulitis of foot, right (2) Acute osteomyelitis of right calcaneus (3) Ulcer of right heel and midfoot with necrosis of bone Date of procedure: 08/27/17 Procedure: Procedure: Debridement of ulceration Right heel with bone biopsy right calcaneus and wound vac Procedure details: Plantar necrotic ulceration to right heel approximately 7.5 cm x 5cm x 1.5cm depth post-debridement. Probed into tarsal tunnel area and second incision made to irrigate through. Excisional debridement of necrotic and fibrotic tissue with #15 blade, curette, rongeur. Culture taken of tissue. Small incision made to lateral heel outside wound periphery and jamshidi needle utilized to take bone sample from calcaneus and sent to pathology as bone biopsy. irrigation and closure of incision with 2-0 nylon suture, followed by application of wound vac dressing right heel. 125mmHg medium continuous setting. Sunday/Sunday/Sunday wound vac changes per wound care. Patient will need follow up with wound care center upon discharge set up, as well as [facility] wound vac. Consulted case management. Nonweightbearing right lower extremity. Await cultures/bone biopsy for ID recommendations. No further surgery/treatment planned per podiatry. Implants: n/a Anesthesia: MAC, local (10mL 0.5% marcaine plain) Surgeon: Lance Valentine DPM [employer] Truck Driver: staff Pathology: other (1. bone biopsy right calcaneus. 2. culture right heel) Condition: stable Disposition: PACU
[2017-08-27] MEDS ORDERED: fentaNYL Citrate Inj 100 MCG/2 ML Ampul ONE (22:50)
[2017-08-27] MEDS ORDERED: *morphine SULFATE 4 MG/ML PERIprocedure ONLY ONE (22:55)
[2017-08-28] MEDS: Morphine Inj 4 MG/ML Vial IV.PUSH PRN (05:24)
[2017-08-28] MEDS: Senna/Docusate Sodium 8.6/50 MG Tablet PO SCH ×2 (08:08→20:21)
[2017-08-28] MEDS: Gabapentin 100 MG Capsule PO SCH ×3 (08:08→18:36)
[2017-08-28] MEDS: Insulin Detemir Inj 1,000 UNIT/10 ML Vial SQ SCH ×2 (08:10→20:22)
[2017-08-28] MEDS: Insulin NovoLOG Aspart Correctional Sugar Inj SQ SCH ×5 (08:21→20:29)
[2017-08-28] MEDS: Heparin - SQ 10,000 UNITS/ML Vial SQ SCH ×2 (11:33→22:20)
[2017-08-28] MEDS: Collagenase Oint 30 GM Tube TOPICAL SCH (11:33)
[2017-08-28] MEDS: Vancomycin Inj 1,500 MG in Sodium Chlor 0.9% Inj 500 ML IV.SIG SCH (11:34)
--- NOTE | 2017-08-28 14:24 | P.DIET ---
Nutritional Evaluation Type of nutrition evaluation: initial Nutrition screening: MDC (Diet Education) Assessment Assessment: Pt seen in her room w/out visitors. Pt stated she has never been educated on a diabetic diet. I provided handouts regarding carb counting, 1800ADA meal pattern , and symptoms of hypo- and hyperglycemia. We began discussing carb counting and pt was stating she understood. We also discussed her recent A1C level and what that meant. Monroe through this discussion, pt started getting tearful and stating how much is going on w/ her life right now. Pt asked if she could be left alone and when I asked if I could return pt stated "no, I can read this on my own". I provided pt w/ my contact information and encouraged her to reach out if she has questions. All education materials were left w/ pt. Consult RD if needed.
--- NOTE | 2017-08-28 14:47 | P.PN ---
Subjective Interval history: patient is now glad that she decide to proceed with the debridement and procedure but right now going though some difficult family state- daughter just got diagnosed with throat cancer and had tracehoestomy prayer and emotional supoort given Physical Exam Vital signs: Vital Signs 08/27/17 16:00 08/27/17 20:00 08/27/17 22:40 Temperature 98.3 F 98.0 F 97.7 F Pulse Rate 83 84 72 Respiratory Rate 20 18 Blood Pressure 149/73 H 155/81 H 121/68 Pulse Oximetry 95 98 100 08/27/17 22:45 08/27/17 23:00 08/27/17 23:15 Temperature Pulse Rate 75 76 73 Respiratory Rate 10 L 13 15 Blood Pressure 147/70 H 142/75 H 137/76 Pulse Oximetry 97 08/27/17 23:30 08/27/17 23:55 08/28/17 00:00 Temperature 98.0 F 97.8 F Pulse Rate 74 77 Respiratory Rate 18 2 L 18 Blood Pressure 138/81 158/72 H Pulse Oximetry 100 95 08/28/17 02:12 08/28/17 03:55 08/28/17 04:00 Temperature 98.4 F Pulse Rate 104 H 90 92 H Respiratory Rate 18 Blood Pressure 136/68 Pulse Oximetry 95 08/28/17 08:00 08/28/17 12:00 Temperature 98.9 F Pulse Rate 77 94 H Respiratory Rate 20 Blood Pressure 150/78 H Pulse Oximetry 96 Intake & Output 08/27/17 08/28/17 08/28/17 18:59 06:59 18:59 Intake Total 1510 / 1510 1020 / 1020 500 / 500 Output Total 50 / 50 Balance 1510 / 1510 970 / 970 500 / 500 Weight 77.6 kg Intake: IV 1030 / 1030 500 / 500 D5W/Normal Saline Inj 1,000 ML 500 / 500 @ 42 mls/hr IV.CONT .[id number] [facility] Rx#:[id number] Vancomycin Inj 1,500 MG In NS 1030 / 1030 Inj 500 ML @ 250 mls/hr IV.SIG Q24H [facility] Rx#:[id number] Oral 480 / 480 720 / 720 Anesthesia Amount 300 / 300 Output: Estimated Blood Loss 50 / 50 Other: # Voids 4 2 # Bowel Movements 1 1 Narrative: awake and alert no complains of pain anicteric lungs- no rales regular rhytm abdomen-soft, nontender right foot- right heel with with post op dressing and VAC in place, good pulses - Urinary Catheter Management Straight Cath placed during this visit: yes Reason for continuing: Not indwelling catheter Insertion date: 08/21/17 Results - Labs CBC & Chem 7: 08/23/17 04:48 08/28/17 07:30 Laboratory Results - last 24 hr 08/27/17 08/27/17 08/27/17 17:37 20:06 23:02 Creatinine Estimated GFR POC Glucose 109 125 H 114 H 08/28/17 08/28/17 08/28/17 03:38 07:30 07:50 Creatinine 1.00 Estimated GFR 58 L POC Glucose 304 H 478 H* 08/28/17 11:55 Creatinine Estimated GFR POC Glucose 170 H Microbiology 08/27/17 21:59 Wound - Heel Gram Stain - Final - Procedures 08/27 Debridement of ulceration Right heel with bone biopsy right calcaneus and wound vac Assessment and Plan - Plan 52 years old female Sepsis secondary to Right heel diabetic foot ulcer with cellulitis/OM - MRI + OM. Status post podiatry - evaluation and bedside debridement.08/22 S/P repeat debridement and biopsy done 08/27 No significant occlusive arterial disease on ELIGIO on admission due to leukocytosis and tachycardic with source of right diabetic foot infection was seen as OP- ER- given Clindamycin- failed to fill prescription appreciate Eulalia- ff - on antiibitcs Podiatry ff alone with us DM type 2 uncontrolled as OP now 88, 136, 61 on Levemer 20 units bid. get a1C monitor on sliding scale and restart long acting at lower dose 5 units bid bedside diabetes education done- on Novolog 7 units tid patient states good hypoglycemic awareness patient complaining about our food- consult - rapier insertion loom fixer for recommendation start D5 NS while waiting for procedure Hypokalemia. corrected hyponatremia likely due to hyperglycemia-improved Daughter currently in the hospital diagnosed with throat cancer and had tracehostomy p[laced- emoitonal support offered explained to her if DC we will arrange for walker and will need VAC PT consult - VAC in place right foot DVT prophylaxisLovenox CM consult for DC planning
--- NOTE | 2017-08-28 21:08 | P.PNPOD ---
Subjective Interval history: s/p bone biopsy right calcaneus, I&D ulcer right heel Physical Exam Vital signs: Vital Signs 08/27/17 22:40 08/27/17 22:45 08/27/17 23:00 Temperature 97.7 F Pulse Rate 72 75 76 Respiratory Rate 10 L 13 Blood Pressure 121/68 147/70 H 142/75 H Pulse Oximetry 100 97 08/27/17 23:15 08/27/17 23:30 08/27/17 23:55 Temperature 98.0 F Pulse Rate 73 74 Respiratory Rate 15 18 2 L Blood Pressure 137/76 138/81 Pulse Oximetry 100 08/28/17 00:00 08/28/17 02:12 08/28/17 03:55 Temperature 97.8 F Pulse Rate 77 104 H 90 Respiratory Rate 18 Blood Pressure 158/72 H Pulse Oximetry 95 08/28/17 04:00 08/28/17 08:00 08/28/17 12:00 Temperature 98.4 F 98.9 F 97.9 F Pulse Rate 92 H 77 84 Respiratory Rate 18 20 20 Blood Pressure 136/68 150/78 H Pulse Oximetry 95 96 97 08/28/17 16:00 08/28/17 20:00 Temperature 97.9 F 99 F Pulse Rate 86 77 Respiratory Rate 20 20 Blood Pressure 158/93 H 129/63 Pulse Oximetry 95 94 L Intake & Output 08/28/17 08/28/17 08/29/17 06:59 18:59 06:59 Intake Total 1020 / 1020 1675 / 1675 Output Total 50 / 50 675 / 675 Balance 970 / 970 1000 / 1000 Weight 77.6 kg Intake: IV 1015 / 1015 D5W/Normal Saline Inj 1,000 ML 500 / 500 @ 42 mls/hr IV.CONT .[id number] [facility] Rx#:[id number] Vancomycin Inj 1,500 MG In NS 515 / 515 Inj 500 ML @ 250 mls/hr IV.SIG Q24H [facility] Rx#:[id number] Oral 720 / 720 660 / 660 Anesthesia Amount 300 / 300 Output: Urine 675 / 675 Estimated Blood Loss 50 / 50 Other: # Voids 2 # Bowel Movements 1 1 Narrative: Wound vac intact and functioning properly to right heel Medications and Allergies Active Medications: Active Medications Acetaminophen (Tylenol) 650 mg PO Q6H PRN PRN Reason: PAIN SCALE 1 TO 2 Hydrocodone Bitart/Acetaminophen (Kanorado 5/325) 1 tab PO Q4H PRN PRN Reason: PAIN SCALE 3 TO 5 Last Admin: 08/22/17 13:04 Dose: 1 tab Hydrocodone Bitart/Acetaminophen (Kanorado 7.5/325) 1 tab PO Q4H PRN PRN Reason: PAIN SCALE 6 TO 10 Last Admin: 08/28/17 18:36 Dose: 1 tab Al Hydroxide/Mg Hydroxide (Milk Of Kristen Liq) 30 ml PO Q12H PRN PRN Reason: Mild Constipation Bisacodyl (Dulcolax Supp) 10 mg RECTAL DAILY PRN PRN Reason: SEVERE CONSITIPATION Chlorhexidine Gluconate (Chlorhexidine 2% Cloth) 3 pack TOPICAL CLIENT SALES AND SERVICE OFFICER [facility] Stop: 08/30/17 16:12 Collagenase (Santyl Oint) 1 applicatio TOPICAL DAILY [facility] Last Admin: 08/28/17 11:33 Dose: Not Given Dextrose (D50w Vial) 50 ml IV.PUSH UNSCH PRN PRN Reason: PER HYPOGLYCEMIA PROTOCOL Last Admin: 08/23/17 17:01 Dose: 50 ml Gabapentin (Neurontin) 100 mg PO TID [facility] Last Admin: 08/28/17 18:36 Dose: 100 mg Glucagon (Glucagon Inj) 1 mg OTHER PRN PRN PRN Reason: for Hypoglycemia Protocol Heparin Sodium (Porcine) (Heparin Inj) 5,000 units SQ Q12H [facility] Last Admin: 08/28/17 11:33 Dose: 5,000 units Pharmacy Profile Note (Vancomycin Consult Pharmacy) 0 mls @ 0 mls/hr OTHER UNSCH [facility] Vancomycin HCl 1,500 mg/ (Sodium Chloride) 515 mls @ 250 mls/hr IV.SIG Q24H [facility] Last Infusion: 08/28/17 18:25 Dose: Infused Lactated Ringer's (Lr 1000 Ml Inj) 1,000 mls @ 30 mls/hr IV.SIG .Q24H [facility] Stop: 08/30/17 16:12 Sodium Chloride (Ns Inj) 500 mls @ 30 mls/hr IV.SIG .Q10H [facility] Stop: 08/30/17 16:12 Insulin Aspart (Novolog Inj) 7 units SQ TIDAC [facility]; Protocol Last Admin: 08/28/17 18:39 Dose: 7 units Insulin Aspart (Novolog Insulin Suppl Scale Inj) 0 unit SQ ACHS AND 3AM [facility]; Protocol Last Admin: 08/28/17 20:29 Dose: 1 unit Insulin Detemir (Levemir Inj) 5 unit SQ BID [facility] Last Admin: 08/28/17 20:22 Dose: 5 unit Lactulose (Lactulose Liq) 30 ml PO DAILY PRN PRN Reason: SEVERE CONSITIPATION Metoprolol Tartrate (Lopressor) 25 mg PO CLIENT SALES AND SERVICE OFFICER [facility] Stop: 08/30/17 16:12 Miscellaneous Information ([facility] [place] [facility]) 1 each OTHER UNSCH PRN PRN Reason: SEE LABEL COMMENTS Stop: 08/28/17 22:56 Morphine Sulfate (Morphine Inj) 4 mg IV.PUSH Q1H PRN PRN Reason: Pain Scale 7-10 (Intractable) Last Admin: 08/28/17 05:24 Dose: 4 mg Naloxone HCl (Narcan Inj) 0.4 mg IV.PUSH UNSCH PRN PRN Reason: SEE LABEL COMMENTS Ondansetron HCl (Zofran Odt) 4 mg PO Q4H PRN PRN Reason: NAUSEA OR VOMITING Last Admin: 08/24/17 09:00 Dose: 4 mg Povidone Iodine (Betadine 5% Antisepsis Kit) 1 applicatio EACH NARE CLIENT SALES AND SERVICE OFFICER [facility] Stop: 08/30/17 16:12 Senna/Docusate Sodium (Belinda-Colace) 1 tab PO BID [facility] Last Admin: 08/28/17 20:21 Dose: 1 tab Sennosides (Senokot) 17.2 mg PO Q12H PRN PRN Reason: Moderate Constipation Temazepam (Restoril) 15 mg PO HS PRN PRN Reason: INSOMNIA Last Admin: 08/26/17 21:16 Dose: 15 mg Allergies Allergy/AdvReac Type Severity Reaction Status Date / Time No Known Allergies Allergy Unverified 08/02/17 06:11 Home Medications Medication Instructions Recorded Confirmed Type insulin detemir U-100 [Levemir 20 unit SUB-Q BID 08/22/17 08/22/17 History U-100 Insulin] Results - Labs CBC & Chem 7: 08/23/17 04:48 08/28/17 07:30 Laboratory Results - last 24 hr 08/27/17 08/28/17 08/28/17 23:02 03:38 07:30 Creatinine 1.00 Estimated GFR 58 L POC Glucose 114 H 304 H 08/28/17 08/28/17 08/28/17 07:50 11:55 17:12 Creatinine Estimated GFR POC Glucose 478 H* 170 H 166 H 08/28/17 19:38 Creatinine Estimated GFR POC Glucose 196 H Microbiology 08/27/17 21:59 Wound - Heel Gram Stain - Final 08/27/17 21:59 Wound - Heel Wound Culture - Preliminary - Procedures 08/27 Debridement of ulceration Right heel with bone biopsy right calcaneus and wound vac Assessment and Plan - Assessment (1) Cellulitis of foot, right Code(s): L03.115 - Cellulitis of right lower limb Status: Acute (2) Ulcer of right heel and midfoot with necrosis of bone Code(s): L97.414 - Non-pressure chronic ulcer of right heel and midfoot with necrosis of bone Status: Acute (3) Acute osteomyelitis of right calcaneus Code(s): M86.171 - Other acute osteomyelitis, right ankle and foot Status: Acute - Plan Continue wound vac as ordered. Awaiting bone biopsy right calcaneus. I have strongly advised against it, but Patient has difficult situation with her daughter and says she has to leave to go out of state for undisclosed time due to her very sick daughter's declining health. Discussed she may experience limb threatening infection without proper wound care. Recommend consult to wound care for recommendations for dressing options for patient to do on her own if she leaves and does not continue with wound vac as ordered.
[2017-08-29] MEDS: Insulin NovoLOG Aspart Correctional Sugar Inj SQ SCH ×3 (03:11→12:50)
[2017-08-29] MEDS: Insulin Detemir Inj 1,000 UNIT/10 ML Vial SQ SCH (09:07)
[2017-08-29] MEDS: Gabapentin 100 MG Capsule PO SCH ×2 (09:07→12:50)
[2017-08-29] MEDS: Senna/Docusate Sodium 8.6/50 MG Tablet PO SCH (09:07)
[2017-08-29] MEDS: Collagenase Oint 30 GM Tube TOPICAL SCH (09:08)
[2017-08-29] MEDS: Vancomycin Inj 1,500 MG in Sodium Chlor 0.9% Inj 500 ML IV.SIG SCH (11:22)
[2017-08-29] MEDS: Heparin - SQ 10,000 UNITS/ML Vial SQ SCH (11:22)
--- NOTE | 2017-08-29 12:23 | P.PN ---
Subjective Interval history: afebrile patient states her daughter is sick - diagnosed with cancer and dying and she needs to leave and drive to [place] d/w her that she needs to be on IV antibiotics " I have to do this" Physical Exam Vital signs: Vital Signs 08/28/17 16:00 08/28/17 19:45 08/28/17 20:00 Temperature 97.9 F 99 F Pulse Rate 86 84 77 Respiratory Rate 20 20 Blood Pressure 158/93 H 129/63 Pulse Oximetry 95 94 L 08/29/17 00:00 08/29/17 04:00 08/29/17 06:05 Temperature 98.5 F 98 F Pulse Rate 79 79 74 Respiratory Rate 18 16 Blood Pressure 133/67 151/76 H Pulse Oximetry 95 94 L 08/29/17 08:00 Temperature 97.9 F Pulse Rate 82 Respiratory Rate 20 Blood Pressure 154/78 H Pulse Oximetry 94 L Intake & Output 08/28/17 08/29/17 08/29/17 18:59 06:59 18:59 Intake Total 1675 / 1675 960 / 960 Output Total 675 / 675 1000 / 1000 Balance 1000 / 1000 -40 / -40 Weight 83.4 kg Intake: IV 1015 / 1015 D5W/Normal Saline Inj 1,000 ML 500 / 500 @ 42 mls/hr IV.CONT .[id number] RICARDO Rx#:[id number] Vancomycin Inj 1,500 MG In NS 515 / 515 Inj 500 ML @ 250 mls/hr IV.SIG Q24H RICARDO Rx#:[id number] Oral 660 / 660 960 / 960 Output: Urine 675 / 675 1000 / 1000 Other: # Bowel Movements 1 Narrative: awake and alert no complains of pain anicteric lungs- no rales regular rhytm abdomen-soft, nontender right foot- right heel with with post op dressing and VAC in place, good pulses - Urinary Catheter Management Straight Cath placed during this visit: yes Reason for continuing: Not indwelling catheter Insertion date: 08/21/17 Results - Labs CBC & Chem 7: 08/23/17 04:48 08/29/17 06:17 Laboratory Results - last 24 hr 08/28/17 08/28/17 08/29/17 17:12 19:38 03:09 Creatinine Estimated GFR POC Glucose 166 H 196 H 182 H 08/29/17 08/29/17 08/29/17 06:17 07:41 11:28 Creatinine 0.85 Estimated GFR 70 L POC Glucose 193 H 317 H Microbiology 08/27/17 21:59 Wound - Heel Acid Fast Bacilli Smear - Final No acid fast bacilli seen 08/27/17 21:59 Wound - Heel Gram Stain - Final 08/27/17 21:59 Wound - Heel Wound Culture - Final S. aureus MRSA Group B beta Strep - Procedures 08/27 Debridement of ulceration Right heel with bone biopsy right calcaneus and wound vac Assessment and Plan - Plan 52 years old female Sepsis secondary to Right heel diabetic foot ulcer with cellulitis/OM - MRI + OM. Status post podiatry - evaluation and bedside debridement.08/22 S/P repeat debridement and biopsy done 08/27- pathology still pending No significant occlusive arterial disease on ELIGIO on admission due to leukocytosis and tachycardic with source of right diabetic foot infection was seen as OP- ER- given Clindamycin- failed to fill prescription appreciate E[facility]- ff - on antibiotics Podiatry ff along with us PT consult- VAC in place- foot DM type 2 uncontrolled as OP now 190- 200s on Levemer 20 units bid as OP get a1C 13.4 monitor on sliding scale and restart long acting at lower dose 5 units bid - increase to 7 units BID bedside diabetes education done- on Novolog 7 units tid patient states good hypoglycemic awareness Hypokalemia. corrected hyponatremia likely due to hyperglycemia-improved Daughter currently in the hospital diagnosed with throat cancer and just had tracheostomy placed- empathized with her and emotional support offered explained to her iDC planning in place - awaiting pathology we will arrange for walker and VAC and OP IV antibiotics DVT prophylaxisLovenox discussed with her extensively the importance of staying for IV antiibotics and VAC- that if she leaves - she could possibly become sicker and might lose the foot due to uncontrolled infection Patient states she understand but "I have to be with my daughter" patient signed out AMA
--- NOTE | 2017-08-29 13:32 | P.PNWCN ---
Wound Care Nurse Consult Description: Wound consult ordered by for wound vac management. Communicated with: Kenia RODGERS, Recommendation: 1. Cleanse right calcaneus with normal saline pat dry 2. Apply Santyl 2mm thick to wound base and gently pack moistened fluffed gauze into wound base cover with dry gauze secure with rolled gauze/Marcio bandage. 3. Change dressing daily or as needed for dislodgement/exudate management. 4. Follow up with out patient podiatry or wound center. Additional information: Patient was seen today by screenplay writer for wound vac management.Food And Beverage Associate received call from Kenia RODGERS stating patient would be signing out AMA.Patient alert and oriented x4.Stated to screenplay writer that daughter is in hospital in [place] for throat cancer and she wishes to be there with her.Dressing removed from right lower extremity with out difficulty.Wound cleansed with normal saline pat dry.Patient has deep tissue surgical debridement and wound measures ~5.0cm x~ 7.0cm x 2.5cm .Suture dry and intact.Wound base moist white/pink non granular tissue.Moderate serosanguineous exudate noted with out odor.Food And Beverage Associate expressed concerns of infection to right calcaneus and the benefits of have a wound vac in place .Patient became emotional and stated she could not be here will be signing out AMA.Patient had Santyl in room .Food And Beverage Associate applied Santyl 2mmthick to wound base and covered with moistened fluffed gauze secured with rolled gauze marcio bandage.Food And Beverage Associate provided patient with 2 weeks supply of rolled gauze, saline, tape and 2 marcio bandages.Patient verbalized understanding of wound care and risk for infection.Food And Beverage Associate performed further teaching on signs and symptoms of infection.Patient verbalized understanding using teach back method. Wound/Pressure Injury - Patient Status Premedicated for Pain Prior to Dressing Change: No - Wound Right Heel Wound Assessment: Ongoing Wound Type: Pressure Injury Is This a Chronic Wound: Yes Requested from Provider a Wound Care Consult: No Length: 6 Width: 3 Wound Bed Appearance: Necrotic Surrounding Tissue Appearance: Erythema Surrounding Tissue Temperature: Cool Drainage Amount: Scant Drainage Odor: Slight Odor Dressing Status: Dry & Intact Topical: Enzymatic Debridement Ointment Wound Packing Type: Woundvac Sponge Primary Dressing: wound vac at 125med continuous Cover Dressing: Elastic Bandage Wound Vac - Wound Vac Right Heel Mode Setting: Continuous Drainage Description: Serosanguinous Foam type: Black Incision - Patient Status Premedicated for Pain Prior to Dressing Change: No - Incision Right Foot Incision Assessment: Ongoing Incision Type: Incision Drainage Amount: None Incision Dressing Status: Dry & Intact Incision Packing Type: Woundvac Sponge Primary Dressing: ACEWRAP Cover Dressing: Gauze Roll/Wrap Incision/Surgery Date: 08/28/17
[2017-08-29] MEDS ORDERED: Insulin Detemir Inj 1,000 UNIT/10 ML Vial SQ SCH (14:00)
--- NOTE | 2017-08-29 19:46 | P.AMA ---
AMA Note - AMA Note AMA Statement: Patient Abby Middleton has decided to leave the hospital against medical advice. This patient has the capacity to refuse care and understands the risks of leaving, including permanent disability and/or , and has had an opportunity to ask questions about his/her condition. The patient has been informed that he/she may return for care at any time, and follow up has been arranged/advised. - AMA Note Discharge Disposition: Left Against Medical Advice Patient Condition on Discharge: Stable
--- NOTE | 2017-08-31 16:48 | MP ---
cc: Lance Valentine DPM DATE OF OPERATION: 08/27/2017 DATE OF SURGERY: 08/27/2017 INDICATIONS AND PROCEDURE: This patient presented to the emergency department with an ulceration to the right heel. She was noted on MRI to have possible osteomyelitis of the right calcaneus with cellulitis in the surrounding tissue. The wound began to deteriorate. Infectious diseases recommended debridement and bone biopsy. She was explained the risks, benefits, and potential complications of surgery and agreed to move forward with debridement of ulceration, right heel with bone biopsy of right calcaneus. She was seen in preop holding by myself, nursing staff and anesthesia where the correct patient, side and site were all confirmed to be correct and the right calcaneus and right heel areas. She was then taken to the surgical suite in supine position, and the right foot was prepped and draped in normal sterile fashion. After timeouts were performed as per facility protocol, attention was directed to the right plantar heel area where the necrotic ulceration of the right heel measured approximately 7.5 cm x 5 cm x 1.5 cm in depth. All necrotic and fibrotic tissue was excisionally debrided with a #15 blade, curette and rongeur. Culture was taken of the tissue. There was some tunneling into the tarsal tunnel area that did probe up to the medial aspect of the heel where a second incision was made and irrigation was performed using 3 liters normal sterile saline. Following this, a small incision was made to the lateral aspect of the heel outside the wound periphery and a Jamshidi needle was utilized in order to take a sample of bone from the calcaneus. This was sent to pathology as a bone biopsy. Irrigation of the wound was performed, followed by closure of the small incision with 2-0 nylon, followed by application of the wound VAC dressing to the right heel plantarly set at 125 mmHg medium continuous setting. She will undergo dressing changes Sunday, Sunday, Sunday with a wound VAC per Wound Care. She needs to followup with the Wound Care Center upon discharge and has a [facility] wound VAC set up. Case management has been consulted for this. She will be nonweightbearing to the right lower extremity, and we will await cultures and bone biopsy results for Infectious Disease's recommendations. No further treatment is planned at this time. SHORT OPERATIVE NOTE SURGEON: Lance Valentine DPM DIRECTOR OF STAFF DEVELOPMENT: Staff. PREOPERATIVE DIAGNOSIS: Ulcer, right heel; osteomyelitis, right calcaneus with cellulitis of the right foot. POSTOPERATIVE DIAGNOSIS: Ulcer, right heel; osteomyelitis, right calcaneus with cellulitis of the right foot. PROCEDURE PERFORMED: Debridement of ulceration, right heel, with bone biopsy, right calcaneus and wound VAC dressing. PROPHYLAXIS: None. ESTIMATED BLOOD LOSS: Minimal. ANESTHESIA: MAC with local consisting of 10 mL of 0.5% Marcaine plain. PATHOLOGY: 1. Bone biopsy, right calcaneus. 2. Culture, right heel. COMPLICATIONS: None. DISPOSITION: Nonweightbearing right lower extremity. Followup on culture and bone biopsy for further treatment recommendations. No further surgery is planned. JUAN ALBERTO Esposito , 04:24 PM , 04:46 PM
== END 2017-08-29 13:48 | disposition left against medical advice (07) ==
LOC: NEPE 19:03 → NEDA 21:48 → HIMC 08-22 05:35 → N04 08-24 10:57
PROVIDERS: ADMIT Internal Medicine; ATTEND Internal Medicine
PROC: DEBRIDE (2017-08-27 21:41)

== ENCOUNTER 2017-09-17 02:06 | Inpatient (IN) ==
[2017-09-17] MEDS ORDERED: Clindamycin 600 mg/NS Premix 600 MG/50 ML PIGGYBACK IV.SIG ONE (02:18)
[2017-09-17] MEDS ORDERED: Sod Chloride 0.9% Inj 1,000 ML IV.SIG ONE ×2 (02:20→17:07)
--- NOTE | 2017-09-17 02:33 | ED ---
[facility] General Chief complaint: Extremity Injury, Lower Stated complaint: diabetic issues Time Seen by Provider: 09/17/17 02:18 Source: patient and old records reviewed History of Present Illness [facility] narrative: 52-year-old woman presents to the emergency department for any worsening right foot pain. She is a history of diabetes, was recently admitted August 21 - August 29 when she left AMA. Apparently daughter was sick. She has not been on antibiotics since leaving hospital. She has not been in any insulin since leaving the hospital. She has been doing wound dressing changes daily weights couple days ago she was walking when she felt a pop. She is worsening severe pain. No fevers. Related Data Home Medications Medication Instructions Recorded Confirmed insulin detemir U-100 [Levemir 20 unit SUB-Q BID 08/22/17 08/22/17 U-100 Insulin] Allergies Allergy/AdvReac Type Severity Reaction Status Date / Time No Known Allergies Allergy Unverified 08/02/17 06:11 Review of Systems ROS Unobtainable All other systems reviewed negative except as stated in [facility] Medical History Medical History Benign hypertension (Acute) Diabetes (Acute) Hepatitis C virus (Acute) Surgical History Surgical History Previous section (Acute) Social History Social History Substance History: No History of Abuse Second Hand Smoke Exposure: No Smoking Status: Former smoker Tobacco Type: Cigarettes How Often Do You Have a Drink Containing Alcohol: Never Recent Travel in [facility] within the Last 8 Weeks: No Recent Out of Country Travel within the Last 8 Weeks: No Immunization History Tetanus Immunization: >5 Years Hx Influenza Vaccine This Season: No Exam Narrative Exam Narrative: GENERAL: 51-year-old woman, no acute distress. SKIN: Focused skin assessment warm/dry. HEAD: Atraumatic. Normocephalic. EYES: Pupils equal and round. No scleral icterus. No injection or drainage. ENT: No nasal bleeding or discharge. Mucous membranes pink and moist. NECK: Trachea midline. No JVD. CARDIOVASCULAR: Heart rate rapid but regular. No murmur appreciated. RESPIRATORY: No accessory muscle use. Clear to auscultation. Breath sounds equal bilaterally. GASTROINTESTINAL: Abdomen soft, non-tender, nondistended. Hepatic and splenic margins not palpable. MUSCULOSKELETAL: Obvious deformity at the right foot. There is erythema and swelling to the dorsum of the foot and some swelling in. There is necrotic large area of ulceration with significant soft tissue loss with deep tunneling into the heel of the foot, tunneling into the soft tissues of the hind foot. NEUROLOGICAL: Awake and alert. No obvious cranial nerve deficits. Motor grossly within normal limits. Normal speech. Course Initial Documented Vital Signs Temperature 99.1 F 09/17/17 02:10 Pulse Rate 121 H 09/17/17 02:10 Respiratory Rate 17 09/17/17 02:10 Blood Pressure 110/55 L 09/17/17 02:10 Pulse Oximetry 97 09/17/17 02:10 Last Documented Vital Signs Temperature 99.1 F 09/17/17 02:10 Pulse Rate 121 H 09/17/17 03:40 Respiratory Rate 19 09/17/17 03:40 Blood Pressure 121/67 09/17/17 03:40 Pulse Oximetry 97 09/17/17 03:40 Medical Decision Making [facility] Narrative Medical decision making narrative: 52-year-old woman with poorly controlled diabetes in the poorly healing wound to the right heel with concern for osteo-. There is a large amount of soft tissue necrosis and traction. She has not been on antibiotics and she left the hospital. She has not been on insulin since she left the hospital. Blood sugars critical high. We will give IV fluids and insulin. Patient had resistant MRSA. Susceptible to vancomycin. We will give IV vancomycin. Will admit back to the hospital. Lab Data Result diagrams: 09/17/17 02:24 09/17/17 02:24 Lab Results 09/17/17 09/17/17 09/17/17 Range/Units 02:12 02:24 02:24 WBC 20.5 H (4.0-11.0) th/mm3 RBC 2.93 L (4.00-5.30) mil/mm3 Hgb 8.6 L (11.6-15.3) gm/dL Hct 27.0 L (35.0-46.0) % MCV 92.1 (80.0-100.0) fL MCH 29.3 (27.0-34.0) pg MCHC 31.8 L (32.0-36.0) % RDW 14.3 (11.6-17.2) % Plt Count 215 (150-450) th/mm3 MPV 10.9 (7.0-11.0) fL Prelim Diff (Auto) Slide review pending Neut % (Auto) 88.5 H (16.0-70.0) % Lymph % (Auto) 5.9 L (9.0-44.0) % [place] % (Auto) 5.3 (0.0-8.0) % Eos % (Auto) 0.0 (0.0-4.0) % Baso % (Auto) 0.3 (0.0-2.0) % Neut # (Auto) 18.1 H (1.8-7.7) th/mm3 Lymph # (Auto) 1.2 (1.0-4.8) th/mm3 [place] # (Auto) 1.1 H (0.0-0.9) th/mm3 Eos # (Auto) 0.0 (0.0-0.4) th/mm3 Baso # (Auto) 0.1 (0.0-0.2) th/mm3 WBC Differential Manual diff final Seg Neuts % (Manual) 69 (16-70) % Band Neuts % (Manual) 17 H (0-6) % Lymphocytes % (Manual) 8 L (9-44) % Monocytes % (Manual) 4 (0-8) % Metamyelocytes % (Man) 2 H (0-1) % Abs Neuts (Manual) 18.0 H (1.8-7.7) th/mm3 Differential Comment . Toxic Vacuolation Present H (None) Platelet Estimate Normal (Normal) Platelet Morphology Normal (Normal) Keratocytes Occ H (None) ESR Greater than 140 H (0-30) mm/hr Sodium (136-145) meq/L Potassium (3.5-5.1) meq/L Chloride (98-107) meq/L Carbon Dioxide (21.0-32.0) meq/L Anion Gap (5-15) meq/L BUN (7-18) mg/dL Creatinine (0.50-1.00) mg/dL Estimated GFR (>89) mL/min POC Glucose Greater than 600 H* (68-110) mg/dl Random Glucose (74-106) mg/dL Calcium (8.5-10.1) mg/dL Total Bilirubin (0.2-1.0) mg/dL AST (15-37) U/L ALT (10-53) U/L Alkaline Phosphatase (45-117) U/L Total Protein (6.4-8.2) g/dL Albumin (3.4-5.0) g/dL 09/17/17 09/17/17 Range/Units 02:24 03:31 WBC (4.0-11.0) th/mm3 RBC (4.00-5.30) mil/mm3 Hgb (11.6-15.3) gm/dL Hct (35.0-46.0) % MCV (80.0-100.0) fL MCH (27.0-34.0) pg MCHC (32.0-36.0) % RDW (11.6-17.2) % Plt Count (150-450) th/mm3 MPV (7.0-11.0) fL Prelim Diff (Auto) Neut % (Auto) (16.0-70.0) % Lymph % (Auto) (9.0-44.0) % [place] % (Auto) (0.0-8.0) % Eos % (Auto) (0.0-4.0) % Baso % (Auto) (0.0-2.0) % Neut # (Auto) (1.8-7.7) th/mm3 Lymph # (Auto) (1.0-4.8) th/mm3 [place] # (Auto) (0.0-0.9) th/mm3 Eos # (Auto) (0.0-0.4) th/mm3 Baso # (Auto) (0.0-0.2) th/mm3 WBC Differential Seg Neuts % (Manual) (16-70) % Band Neuts % (Manual) (0-6) % Lymphocytes % (Manual) (9-44) % Monocytes % (Manual) (0-8) % Metamyelocytes % (Man) (0-1) % Abs Neuts (Manual) (1.8-7.7) th/mm3 Differential Comment Toxic Vacuolation (None) Platelet Estimate (Normal) Platelet Morphology (Normal) Keratocytes (None) ESR (0-30) mm/hr Sodium 126 L (136-145) meq/L Potassium 3.5 (3.5-5.1) meq/L Chloride 90 L (98-107) meq/L Carbon Dioxide 26.1 (21.0-32.0) meq/L Anion Gap 10 (5-15) meq/L BUN 30 H (7-18) mg/dL Creatinine 1.77 H (0.50-1.00) mg/dL Estimated GFR 30 L (>89) mL/min POC Glucose Greater than 600 H* (68-110) mg/dl Random Glucose 845 H* (74-106) mg/dL Calcium 7.5 L (8.5-10.1) mg/dL Total Bilirubin 0.7 (0.2-1.0) mg/dL AST 12 L (15-37) U/L ALT 11 (10-53) U/L Alkaline Phosphatase 155 H (45-117) U/L Total Protein 7.0 (6.4-8.2) g/dL Albumin 1.8 L (3.4-5.0) g/dL Imaging Data Radiologist's impression: Foot X-Ray 09/17/17 02:18 CONCLUSION: 1. Fracture deformity of the calcaneus with large overlying soft tissue defect which extends into the fracture. Discharge Plan Discharge Disposition Patient Disposition: 30 Still Patient Physicians Team ED Provider: Colby Jaimes Primary Care Provider: Primary Care Glory Pierce Attending Provider: Aishwarya Renae Status ED Status: Admitted Patient
[2017-09-17 02:40] LABS: Baso # (Auto) 0.1 th/mm3 (0.0-0.2); Baso % (Auto) 0.3 % (0.0-2.0); Hemoglobin 8.6 gm/dL (11.6-15.3); Lymph # (Auto) 1.2 th/mm3 (1.0-4.8); Lymph % (Auto) 5.9 % (9.0-44.0); Mean Corpuscular HGB Conc 31.8 % (32.0-36.0); Mean Corpuscular Hemoglobin 29.3 pg (27.0-34.0); Mean Corpuscular Volume 92.1 fL (80.0-100.0); Mean Platelet Volume 10.9 fL (7.0-11.0); Mono # (Auto) 1.1 th/mm3 (0.0-0.9); Mono % (Auto) 5.3 % (0.0-8.0); Neut # (Auto) 18.1 th/mm3 (1.8-7.7); Neut % (Auto) 88.5 % (16.0-70.0); Platelet Count 215 th/mm3 (150-450); Red Blood Count 2.93 mil/mm3 (4.00-5.30); Red Cell Distribution Width 14.3 % (11.6-17.2); White Blood Count 20.5 th/mm3 (4.0-11.0)
[2017-09-17] MEDS ORDERED: Vancomycin Inj 1 GM/200 ML PIGGYBACK IV.SIG SCH (03:00)
[2017-09-17 03:17] LABS: Alanine Aminotransferase 11 U/L (10-53); Albumin 1.8 g/dL (3.4-5.0); Alkaline Phosphatase 155 U/L (45-117); Anion Gap 10 meq/L (5-15); Aspartate Aminotransferase 12 U/L (15-37); Blood Urea Nitrogen 30 mg/dL (7-18); Calcium 7.5 mg/dL (8.5-10.1); Carbon Dioxide 26.1 meq/L (21.0-32.0); Chloride 90 meq/L (98-107); Glomerular Filtration Rate 30 mL/min (>89); Potassium 3.5 meq/L (3.5-5.1); Sodium 126 meq/L (136-145)
--- NOTE | 2017-09-17 03:24 | XR ---
EXAM DATE: 09/17/2017 2:35 AM EDT AGE/SEX: 52 years / Female INDICATIONS: Right foot open wound on heel. CLINICAL DATA: This is the patient's initial encounter. Patient reports that signs and symptoms have been present for 2 days and indicates a pain score of 10/10. MEDICAL/SURGICAL HISTORY: Diabetes mellitus type II. . Right heel surgery. COMPARISON: [facility] [place], FOOT COMPLETE RIGHT 3V, 08/21/2017. . FINDINGS: AP, lateral and oblique views of the right foot were obtained and demonstrate a mildly comminuted fra cture deformity of the calcaneus with separation of the fracture fragments measuring up to approximat babatunde 1.7 cm. The main fracture line extends into the talocalcaneal joint. There is a large overlying v olar soft tissue defect which extends into the fracture. There are mild osteoarthritic changes. There is surrounding soft tissue swelling. CONCLUSION: 1. Fracture deformity of the calcaneus with large overlying soft tissue defect which extends into th e fracture. Electronically signed by: Kip Landrum MD 09/17/2017 3:22 AM EDT
[2017-09-17 03:28] LABS: Glucose,Random 845 mg/dL (74-106)
[2017-09-17] MEDS ORDERED: HYDROmorphone PF Inj 2 MG/ML Vial IV.PUSH ONE (03:34)
[2017-09-17 03:55] LABS: Lymphocytes 8 % (9-44); Metamyelocytes 2 % (0-1); Monocytes 4 % (0-8); Platelet Estimate Normal (Normal); Platelet Morphology Normal (Normal)
[2017-09-17 03:57] LABS: Toxic Vacuolation Present
[2017-09-17] MEDS ORDERED: Dextrose 50% in Water 50 ML Vial IV.PUSH PRN ×2 (04:10→14:41)
[2017-09-17] MEDS ORDERED: Temazepam 15 MG Capsule PO PRN (04:11)
[2017-09-17] MEDS ORDERED: Acetaminophen 325 MG Tablet PO PRN (04:11)
[2017-09-17] MEDS ORDERED: Bisacodyl 10 MG Supp RECTAL PRN (04:11)
[2017-09-17] MEDS ORDERED: Insulin Detemir Inj 1,000 UNIT/10 ML Vial SQ ONE (04:13)
--- NOTE | 2017-09-17 04:49 | P.HPIM ---
History of Present Illness Primary Care Physician: No Primary Care Physician History of Present Illness: This is a 52-year-old female with a PMH of Hepatitis C, DM, HTN and Right Heel Ulcer who presented to the ER with complaints of worsening right heel pain x1 day. Recent admit 08/21/17 for similar complaints, found to have right foot osteomyelitis on MRI Foot 08/24/17, s/p I&D by Dr. Valentine on 08/27/17, Wound Cultures +MRSA, was on IV Vanc however pt ultimately LEFT AMA on 08/29/17. States she was given prescription for Vanc but hasn't been able to fill it due to financial reasons, off antibiotics since then. Today w/ increasing pain and swelling to right foot and heel. On arrival, BP 110/55, HR 121, O2 sat 97% on RA, Temp 99.1. W BC 20.5, bands 17%. Na 126. Creatinine 1.77, previously 0.85 on 08/29/2017. BS 845. S/p Vanc in ER. Foot X-ray w/ fracture deformity of calcaneus with large overlying soft tissue defect which extends into the fracture. 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 This includes certification that hospital inpatient services are reasonable and necessary and in the case of services not specified as inpatient-only under 42 CFR 419.22(n), that they are appropriately provided as inpatient services in accordance to with the 2-midnight benchmark under 43 CFR 412.3(e) Estimated Total Length of Stay (Days): 2 Plans for Post Hospital Care: Not yet determined Review of Systems All other systems reviewed negative except as stated in HPI PMFSH - History History Provided By: Patient, Tilt Wall Supervisor / EMT - Medical History Medical History: Medical History (Last Reviewed 09/17/17 @ 02:38 by Colby Jaimes MD) Benign hypertension Diabetes Hepatitis C virus - Surgical History Surgical History: Surgical History (Last Reviewed 09/17/17 @ 02:38 by Colby Jaimes MD) Previous section - Tobacco History Second Hand Smoke Exposure: No Smoking Status: Former smoker Tobacco Type: Cigarettes - Alcohol History How Often Do You Have a Drink Containing Alcohol: Never - Substance Use History Substance History: No History of Abuse - Travel History Recent Travel in the [place] Within the Last 8 Weeks: No Recent Travel Out of the Country Within the Last 8 Weeks: No - Immunization History Tetanus Immunization: >5 Years Hx Influenza Vaccine This Season: No Medications and Allergies Active Medications: Active Medications Acetaminophen (Tylenol) 650 mg PO Q4H PRN PRN Reason: Temp > 100.4 Al Hydroxide/Mg Hydroxide (Milk Of Magnesia Liq) 30 ml PO Q12H PRN PRN Reason: Mild Constipation Bisacodyl (Dulcolax Supp) 10 mg RECTAL DAILY PRN PRN Reason: SEVERE CONSITIPATION Dextrose (D50w Vial) 50 ml IV.PUSH UNSCH PRN PRN Reason: PER HYPOGLYCEMIA PROTOCOL Glucagon (Glucagon Inj) 1 mg OTHER PRN PRN PRN Reason: for Hypoglycemia Protocol Vancomycin/Sodium Chloride (Vancomycin Inj) 1 gm in 200 mls @ 200 mls/hr IV.SIG [employer] [facility] Last Admin: 09/17/17 04:04 Dose: 200 mls/hr Sodium Chloride (Ns Inj) 1,000 mls @ 100 mls/hr IV.CONT .Q10H [facility] Pharmacy Profile Note (Vancomycin Consult Pharmacy) 0 mls @ 0 mls/hr OTHER UNSCH [facility] Insulin Aspart (Novolog Insulin Correctional Sugar Inj) 0 unit SQ ACHS [facility]; Protocol Insulin Detemir (Levemir Inj) 10 unit SQ BID [facility] Lactulose (Lactulose Liq) 30 ml PO DAILY PRN PRN Reason: SEVERE CONSITIPATION Ondansetron HCl (Zofran Odt) 4 mg PO Q6H PRN PRN Reason: NAUSEA OR VOMITING Senna/Docusate Sodium (Belinda-Colace) 1 tab PO BID [facility] Sennosides (Senokot) 17.2 mg PO Q12H PRN PRN Reason: Moderate Constipation Temazepam (Restoril) 15 mg PO HS PRN PRN Reason: INSOMNIA Allergies Allergy/AdvReac Type Severity Reaction Status Date / Time No Known Allergies Allergy Unverified 08/02/17 06:11 Home Medications Medication Instructions Recorded Confirmed Type insulin detemir U-100 [Levemir 20 unit SUB-Q BID 08/22/17 08/22/17 History U-100 Insulin] Exam Vital signs: Vital Signs 09/17/17 02:10 09/17/17 03:40 Temperature 99.1 F Pulse Rate 121 H 121 H Respiratory Rate 17 19 Blood Pressure 110/55 L 121/67 Pulse Oximetry 97 97 Intake & Output 09/16/17 09/16/17 09/17/17 06:59 18:59 06:59 Intake Total 50 / 50 Balance 50 / 50 Weight 68.039 kg Intake: IV 50 / 50 Cleocin 600 mg/NS Premix 600 mg 50 / 50 In 50 ml @ 100 mls/hr IV.SIG ONCE ONE Rx#:[id number] Narrative: PE: GENERAL: Middle-aged white female in no acute distress. HEENT: PERRLA, EOMI. No scleral icterus or conjunctival pallor. No lid lag or facial droop. CARDIOVASCULAR: Regular rate and rhythm. No obvious murmurs to auscultation. No chest tenderness to palpation. RESPIRATORY: No obvious rhonchi or wheezing. Clear to auscultation. Breath sounds equal bilaterally. GASTROINTESTINAL: Abdomen soft, non-tender, nondistended. BS normal. MUSCULOSKELETAL: Extremities without clubbing, cyanosis, or edema. No obvious deformities. Right heel w/ large open, gaping wound, malodorous, purulent drainage NEUROLOGICAL: Awake, alert and oriented x4. No focal neurologic deficits. Moving both upper and lower extremities spontaneously. Results - Labs CBC & Chem 7: 09/17/17 02:24 09/17/17 02:24 Labs: Short CBC 09/17/17 Range/Units 02:24 WBC 20.5 H (4.0-11.0) th/mm3 Hgb 8.6 L (11.6-15.3) gm/dL Hct 27.0 L (35.0-46.0) % Plt Count 215 (150-450) th/mm3 [facility] 09/17/17 02:24 Sodium 126 L Potassium 3.5 Chloride 90 L Carbon Dioxide 26.1 BUN 30 H Creatinine 1.77 H Calcium 7.5 L Liver Function 09/17/17 Range/Units 02:24 Total Bilirubin 0.7 (0.2-1.0) mg/dL AST 12 L (15-37) U/L ALT 11 (10-53) U/L Alkaline Phosphatase 155 H (45-117) U/L Albumin 1.8 L (3.4-5.0) g/dL - Imaging Impressions Foot X-Ray 09/17/17 02:18 CONCLUSION: 1. Fracture deformity of the calcaneus with large overlying soft tissue defect which extends into the fracture. Caprini VTE Risk Assessment Caprini VTE Risk Assessment: No/Low Risk (score <= 1) VTE Pharmacological Exception Reason: High risk for bleeding VTE Mechanical Exception: LE injury/wound Caprini Risk Assessment Model: Point Value = 1 Point Value = 2 Point Value = 3 Point Value = 5 Age 41-60 Minor surgery BMI > 25 kg/m2 Swollen legs Varicose veins or History of unexplained or recurrent spontaneous Oral contraceptives or hormone replacement Sepsis (< 1 month) Serious lung disease, including pneumonia (< 1 month) Abnormal pulmonary function Acute myocardial infarction Congestive heart failure (< 1 month) History of inflammatory bowel disease Medical patient at bed rest Age 61-74 Arthroscopic surgery Major open surgery (> 45 min) Laparoscopic surgery (> 45 min) Malignancy Confined to bed (> 72 hours) Immobilizing plaster cast Central venous access Age >= 75 History of VTE Family history of VTE Factor V Leiden Prothrombin [id number] Lupus anticoagulant Anticardiolipin antibodies Elevated serum homocysteine Heparin-induced thrombocytopenia Other congenital or acquired thrombophilia Stroke (< 1 month) Elective arthroplasty Hip, pelvis, or leg fracture Acute spinal cord injury (< 1 month) Prophylaxis Regimen: Total Risk Factor Score Risk Level Prophylaxis Regimen 0-1 Low Early ambulation 2 Moderate Order ONE of the following: *Sequential Compression Device (SCD) *Heparin 5000 units SQ BID 3-4 Higher Order ONE of the following medications: *Heparin 5000 units SQ TID *Enoxaparin/Lovenox 40 mg SQ daily (WT < 150 kg, CrCl > 30 mL/min) *Enoxaparin/Lovenox 30 mg SQ daily (WT < 150 kg, CrCl > 10-29 mL/min) *Enoxaparin/Lovenox 30 mg SQ BID (WT < 150 kg, CrCl > 30 mL/min) AND/OR *Sequential Compression Device (SCD) 5 or more Highest Order ONE of the following medications: *Heparin 5000 units SQ TID (Preferred with Epidurals) *Enoxaparin/Lovenox 40 mg SQ daily (WT < 150 kg, CrCl > 30 mL/min) *Enoxaparin/Lovenox 30 mg SQ daily (WT < 150 kg, CrCl > 10-29 mL/min) *Enoxaparin/Lovenox 30 mg SQ BID (WT < 150 kg, CrCl > 30 mL/min) AND *Sequential Compression Device (SCD) Assessment and Plan - Assessment (1) Sepsis Code(s): A41.9 - Sepsis, unspecified organism Status: Acute (2) 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 Sepsis: Temp 99.1, HR 121, WBC 20.5, Source-Right heel infection. S/p Blood Cultures, IV Vanc, follow up cultures, continue IV Abx. 2. Right Heel Ulcer: w/ calcaneus fracture on X-ray, recent admit 08/21/17-, MRI Foot +osteomyelitis at that time, s/p I&D by Dr. Valentine 08/27/17, MRSA+ , however LEFT AMA 08/29/17, off antibiotics since then. Continue IV Abx, Consult Podiatry for surgical intervention. 3. DM: Uncontrolled. Hgb A1c 13.4 on 08/26/17, pt non-compliant w/ meds. Start Levemir, sliding scale w/ Accu-cheks 4. DVT Prophylaxis: Pharmacologic/mechanical contraindication in light of wound and likely surgical intervention. 5. Social work for DC planning as needed. 6. Case discussed at length with the ER physician, lab/record/imaging reviewed by me.
[2017-09-17] MEDS: Sod Chloride 0.9% Inj 1,000 ML IV.CONT SCH (04:54)
[2017-09-17] MEDS ORDERED: Vancomycin Consult Pharmacy 1 EACH OTHER SCH (05:00)
[2017-09-17] MEDS ORDERED: Insulin NovoLOG Aspart Correctional Sugar Inj SQ SCH ×2 (08:00→17:00)
[2017-09-17] MEDS ORDERED: Potassium Chlor 40 mEq Premix 40 MEQ/100 ML PIGGYBACK IV.SIG PRN (08:09)
[2017-09-17] MEDS ORDERED: Potassium Chlor 20 mEq Premix 20 MEQ/100 ML PIGGYBACK IV.SIG PRN ×6 (08:09)
[2017-09-17] MEDS ORDERED: Sodium Phosphate Inj 15 MMOL in Sodium Chlor 0.9% Inj 100 ML IV.SIG PRN (08:09)
[2017-09-17] MEDS ORDERED: Insulin Regular (For Infusion) 100 UNIT in Sodium Chlor 0.9% Inj 99 ML IV.CONT PRN (08:09)
[2017-09-17] MEDS ORDERED: Dextrose 5%/NaCl 0.9% Inj 1,000 ML IV.CONT SCH (08:15)
[2017-09-17] MEDS ORDERED: Sod Chloride 0.9% Inj 1,000 ML IV.CONT SCH (08:15)
[2017-09-17] MEDS: Senna/Docusate Sodium 8.6/50 MG Tablet PO SCH ×2 (08:18→22:34)
[2017-09-17 14:38] LABS: Baso # (Auto) 0.1 th/mm3 (0.0-0.2); Baso % (Auto) 0.5 % (0.0-2.0); Eos % (Auto) 0.3 % (0.0-4.0); Lymph # (Auto) 2.1 th/mm3 (1.0-4.8); Lymph % (Auto) 14.8 % (9.0-44.0); Mean Corpuscular Hemoglobin 28.3 pg (27.0-34.0); Mean Platelet Volume 10.8 fL (7.0-11.0); Mono # (Auto) 0.9 th/mm3 (0.0-0.9); Mono % (Auto) 6.2 % (0.0-8.0); Neut # (Auto) 10.9 th/mm3 (1.8-7.7); Neut % (Auto) 78.2 % (16.0-70.0); Platelet Count 165 th/mm3 (150-450); Red Blood Count 2.26 mil/mm3 (4.00-5.30); Red Cell Distribution Width 15.2 % (11.6-17.2); White Blood Count 13.9 th/mm3 (4.0-11.0)
[2017-09-17 14:47] LABS: Mean Corpuscular HGB Conc 28.9 % (32.0-36.0)
[2017-09-17 14:50] LABS: Hematocrit 22.2 % (35.0-46.0); Hemoglobin 6.4 gm/dL (11.6-15.3)
[2017-09-17 15:26] LABS: Lymphocytes 12 % (9-44); Monocytes 3 % (0-8); Toxic Vacuolation Present
[2017-09-17 15:27] LABS: Burr Cells 1+; Platelet Estimate Normal (Normal); Platelet Morphology Normal (Normal); Toxic Granulation 1+
--- NOTE | 2017-09-17 17:13 | P.PNADD ---
Addendum to Inpatient Note Reason for Addendum: Additional Documentation Additional information: The pt was seen in the ICU. She was complaining of severe pain in her foot. Nursing was at the bedside. The pt's systolic blood pressure was in the low 80s. Her hemoglobin was 6.4. Two units of red cells were ordered. A NS bolus as well as continuous fluids were ordered. The pt was weaned off an insulin gtt and her diet was advanced and she was placed on a sliding scale as well as Levemir. Zosyn was added to vancomycin. Podiatry evaluated the pt and seems to be considering an amputation. Blood cultures were ordered. Will start Levophed is blood pressure does not improve. Keep in ICU.
[2017-09-17] MEDS ORDERED: Piperacil/Tazo 2.25 GM Premix 50 ML IV.SIG SCH (18:00)
--- NOTE | 2017-09-17 18:10 | P.CON ---
History of Present Illness Service: Podiatry/foot and ankle surgery Consult date: 09/17/17 Reason for Consult: Right foot pathologic calcaneal fracture with ulceration Primary Care Provider: No Primary Care Physician Family Provider: No Primary Care Physician Chief Complaint: Right foot pain History of Present Illness: Podiatry consulted for this 52-year-old female with past medical history of hepatitis C, diabetes, hypertension and right heel ulcer who presented to the ER with complaints of worsening heel pain. Patient was admitted on August 21 2017 for similar complaints and was found to have right calcaneal osteomyelitis on MRI. Patient is status post bone biopsy by Dr. Valentine on 08/27/2017 with positive wound cultures for MRSA. Per hospital notes she left AMA on 2017. Per H&P patient was given prescriptions for antibiotics but she was unable to fill them due to financial reasons, however when speaking the patient she states she did take antibiotics. She states she tried to stay off her foot as much as possible but she continued to walk on it. Patient reports not feeling well in general. PMFSH - History History Provided By: Patient, Resident Advisor / EMT - Medical History Medical History: Medical History (Last Reviewed 09/17/17 @ 02:38 by Colby Jaimes MD) Benign hypertension Diabetes Hepatitis C virus - Surgical History Surgical History: Surgical History (Last Reviewed 09/17/17 @ 02:38 by Colby Jaimes MD) Previous section - Tobacco History Second Hand Smoke Exposure: No Smoking Status: Former smoker Tobacco Type: Cigarettes - Alcohol History How Often Do You Have a Drink Containing Alcohol: Never - Substance Use History Substance History: No History of Abuse - Travel History Recent Travel in the [facility] Within the Last 8 Weeks: No Recent Travel Out of the Country Within the Last 8 Weeks: No - Immunization History Tetanus Immunization: >5 Years Hx Influenza Vaccine This Season: No Medications and Allergies Active Medications: Active Medications Al Hydroxide/Mg Hydroxide (Milk Of Magnesia Liq) 30 ml PO Q12H PRN PRN Reason: Mild Constipation Bisacodyl (Dulcolax Supp) 10 mg RECTAL DAILY PRN PRN Reason: SEVERE CONSITIPATION Chlorhexidine Gluconate (Chlorhexidine 2% Cloth) 3 pack TOPICAL DAILY@0400 [facility] Stop: 09/23/17 03:59 Chlorhexidine Gluconate (Chlorhexidine 2% Cloth) 3 pack TOPICAL DAILY@0400 PRN PRN Reason: Extra cloth needed Stop: 09/23/17 03:59 Dextrose (D50w Vial) 50 ml IV.PUSH UNSCH PRN PRN Reason: PER HYPOGLYCEMIA PROTOCOL Glucagon (Glucagon Inj) 1 mg OTHER PRN PRN PRN Reason: for Hypoglycemia Protocol Sodium Chloride (Ns Inj) 1,000 mls @ 100 mls/hr IV.CONT .Q10H [facility] Last Admin: 09/17/17 04:54 Dose: 100 mls/hr Pharmacy Profile Note (Vancomycin Consult Pharmacy) 0 mls @ 0 mls/hr [facility] Dextrose/Sodium Chloride (D5w/Normal Saline Inj) 1,000 mls @ 200 mls/hr IV.CONT .Q5H [facility] Sodium Chloride (Ns Inj) 1,000 mls @ 250 mls/hr IV.CONT .Q4H [facility] Last Admin: 09/17/17 08:42 Dose: 250 mls/hr Potassium Chloride (Kcl 40 Meq Premix Inj) 40 meq in 100 mls @ 50 mls/hr IV.SIG Q1H PRN PRN Reason: for Initial K+ ONLY < 3.5 Potassium Chloride (Kcl 40 Meq Premix Inj) 40 meq in 100 mls @ 50 mls/hr IV.SIG Q2H PRN PRN Reason: for Subsequent K+ < 3.5 Potassium Chloride (Kcl 20 Meq Premix Inj) 20 meq in 100 mls @ 100 mls/hr IV.SIG Q1H PRN PRN Reason: for K+ 3.5 to 4.4 Last Infusion: 09/17/17 11:11 Dose: Infused Potassium Chloride (Kcl 20 Meq Premix Inj) 20 meq in 100 mls @ 100 mls/hr IV.SIG Q1H PRN PRN Reason: for K+ 4.5 to 5 Potassium Chloride (Kcl 20 Meq Premix Inj) 20 meq in 100 mls @ 50 mls/hr IV.SIG Q2H PRN PRN Reason: for Subsequent K+ < 3.5 Potassium Chloride (Kcl 20 Meq Premix Inj) 20 meq in 100 mls @ 50 mls/hr IV.SIG Q2H PRN PRN Reason: for K+ 3.5 to 4.4 Last Admin: 09/17/17 11:56 Dose: 50 mls/hr Potassium Chloride (Kcl 20 Meq Premix Inj) 20 meq in 100 mls @ 50 mls/hr IV.SIG Q2H PRN PRN Reason: for K+ 4.5 to 5 Sodium Phosphate 15 mmol/ (Sodium Chloride) 105 mls @ 25 mls/hr IV.SIG UNSCH PRN PRN Reason: for Phosphate Level < 1.0 Potassium Chloride (Kcl 20 Meq Premix Inj) 20 meq in 100 mls @ 50 mls/hr IV.SIG Q2H PRN PRN Reason: for Initial K+ ONLY < 3.5 Vancomycin HCl 1,000 mg/ (Sodium Chloride) 250 mls @ 250 mls/hr IV.SIG Q24H [facility] Acetaminophen (Ofirmev Inj) 1,000 mg in 100 mls @ 400 mls/hr IV.SIG Q8HR [facility] Stop: 09/18/17 14:14 Last Admin: 09/17/17 17:00 Dose: 400 mls/hr Piperacillin/Tazobactam/Dextrose (Zosyn 2.25 Gm Premix) 50 mls @ 100 mls/hr IV.SIG Q6H [facility] Insulin Aspart (Novolog Insulin Correctional Sugar Inj) 0 unit SQ ACHS [facility]; Protocol Insulin Aspart (Novolog Inj) 5 units SQ [facility] Insulin Detemir (Levemir Inj) 20 unit SQ BID [facility] Lactulose (Lactulose Liq) 30 ml PO DAILY PRN PRN Reason: SEVERE CONSITIPATION Miscellaneous Information ([facility] Ordered Lab Info) 0 each OTHER ONCE ONE Stop: 09/19/17 03:46 Morphine Sulfate (Morphine Inj) 2 mg IV.PUSH Q4H PRN PRN Reason: BREAKTHROUGH PAIN Ondansetron HCl (Zofran Odt) 4 mg PO Q6H PRN PRN Reason: NAUSEA OR VOMITING Senna/Docusate Sodium (Belinda-Colace) 1 tab PO BID [facility] Last Admin: 09/17/17 08:18 Dose: Not Given Sennosides (Senokot) 17.2 mg PO Q12H PRN PRN Reason: Moderate Constipation Sodium Bicarbonate (Sodium Bicarbonate 8.4% Inj) 50 meq IV.PUSH UNSCH PRN PRN Reason: for pH 6.9 to 7.0 Sodium Bicarbonate (Sodium Bicarbonate 8.4% Inj) 100 meq IV.PUSH UNSCH PRN PRN Reason: for pH less than 6.9 Temazepam (Restoril) 15 mg PO HS PRN PRN Reason: INSOMNIA Allergies Allergy/AdvReac Type Severity Reaction Status Date / Time No Known Allergies Allergy Unverified 08/02/17 06:11 Home Medications Medication Instructions Recorded Confirmed Type No Known Home Medications 09/17/17 09/17/17 History Physical Exam Vital signs: Vital Signs 09/17/17 02:10 09/17/17 03:40 09/17/17 05:56 Temperature 99.1 F Pulse Rate 121 H 121 H 110 H Respiratory Rate 17 19 16 Blood Pressure 110/55 L 121/67 123/59 L Pulse Oximetry 97 97 93 L 09/17/17 06:25 09/17/17 08:41 Temperature Pulse Rate 110 H Respiratory Rate 12 Blood Pressure 93/67 L Pulse Oximetry 100 98 Intake & Output 09/16/17 09/17/17 09/17/17 18:59 06:59 18:59 Intake Total 250 / 250 100 / 100 Balance 250 / 250 100 / 100 Weight 68.039 kg Intake: IV 250 / 250 100 / 100 Cleocin 600 mg/NS Premix 600 mg 50 / 50 In 50 ml @ 100 mls/hr IV.SIG ONCE ONE Rx#:[id number] KCl 20 mEq Premix Inj 20 meq In 100 / 100 100 ml @ 100 mls/hr IV.SIG Q1H PRN Rx#:[id number] Vancomycin Inj 1 gm In 200 ml @ 200 / 200 200 mls/hr IV.SIG [employer]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 SKIN: Plantar heel ulceration with exposed bone and subtalar joint instability HEAD: Atraumatic. EYES: Pupils equal round and reactive. ENT: Airway patent. NECK: Trachea midline. RESPIRATORY: Nonlabored breathing. MUSCULOSKELETAL:. Negative Homans sign bilaterally. NEUROLOGICAL: Awake and alert. Normal speech. Lower extremity physical exam: Vascular: Dorsalis pedis nonpalpable secondary to edema, posterior tibial nonpalpable secondary to edema. Capillary refill time within normal limits to digits 5 bilateral foot. Edema present to right foot globally. Neuro: Gross sensation intact to bilateral lower extremity. Pinpoint sensation decreased. No hyperalgesia noted to bilateral lower extremity Dermatology: Plantar heel ulceration encompassing entire plantar heel with necrotic tissue which probes to bone. Positive malodor. Serous drainage noted. No purulent drainage noted upon compression. Musculoskeletal: Tender to palpation to right foot plantar ulceration fracture site. Subtalar joint instability noted to right foot. Assessment and Plan - Plan 52-year-old female with pathologic calcaneal fracture secondary to osteomyelitis and associated plantar heel ulceration Patient evaluated and examined with all questions answered Reviewed imaging Discussed imaging with patient Discussed with patient that she is at very high risk for limb loss Recommend either debridement and irrigation with casting and nonweightbearing which unfortunately would probably ultimately lead to a below the knee amputation secondary to suspected degree of osteomyelitis Will obtain MRI of the right foot to evaluate degree of osteomyelitis Did discuss with patient below the knee amputation versus continued conservative care, patient is willing to speak with vascular surgeon concerning below the knee amputation, as I do feel below the knee amputation is a viable option for patient at this point Limb salvage attempts will probably only prolonged need for below the knee amputation as patient was unable to tolerate needed IV antibiotics to potentially heal osteomyelitis Please consult infectious disease as well further recommendations If podiatry to proceed with debridement irrigation with wound VAC placement, posterior splint and nonweightbearing would appreciate vascular's recommendations on vascular supply
[2017-09-17 18:57] LABS: Albumin 1.7 g/dL (3.4-5.0); Calcium 7.4 mg/dL (8.5-10.1); Carbon Dioxide 23.4 meq/L (21.0-32.0); Magnesium 1.9 mg/dL (1.5-2.5); Phosphorus 2.4 mg/dL (2.5-4.9); Total Protein 7.3 g/dL (6.4-8.2)
[2017-09-17] MEDS ORDERED: Insulin Detemir Inj 1,000 UNIT/10 ML Vial SQ SCH (21:00)
[2017-09-17] MEDS ORDERED: Dextrose 5%/NaCl 0.45% Inj 500 ML IV.SIG ONE (21:38)
[2017-09-17] MEDS: Insulin Detemir Inj 1,000 UNIT/10 ML Vial SQ SCH (22:33)
[2017-09-18] MEDS ORDERED: Calcium Chloride Inj 1 GM in Sodium Chlor 0.9% Inj 100 ML IV.SIG ONE (00:38)
--- NOTE | 2017-09-18 00:42 | P.PCN ---
Date of procedure: 09/18/17 Pre-op diagnosis: Septic shock, in need of central line access Post-op diagnosis: same Procedure: DATE: 09/18/17 CENTRAL LINE PLACEMENT: Right internal jugular vein. INDICATION: Central venous access CONSENT Informed consent for procedure was obtained from patient after discussion of risk, benefits, alternatives DESCRIPTION OF THE PROCEDURE The patient was placed in supine position, mild Trendelenburg. The skin was cleansed with Chloraprep x3. Additional barrier precautions included large sterile drape, sterile gloves, sterile gown, face mask, and hat. 1 % lidocaine was used for local anesthesia. Under direct ultrasound guidance and on single attempt, the vein was accessed with an introducer needle. The guide wire was advanced and the tract was dilated. Using Seldinger technique a 7 Vietnamese 20 cm antimicrobial coated triple-lumen catheter was advanced to a depth of 17 centimeters. The guide wire was removed. All ports had good return of dark venous blood and flushed easily with saline. The central line was secured with 2.0 silk because Stat lock would not secure adequately. A sterile dressing with antibiotic disc was applied. ESTIMATED BLOOD LOSS: Minimal COMPLICATIONS: No apparent complications. STAT chest x-ray is pending Disposition: ICU
[2017-09-18] MEDS ORDERED: Norepinephrine Inj 4 MG in Sodium Chlor 0.9% Inj 246 ML IV.SIG PRN ×2 (00:43→00:53)
--- NOTE | 2017-09-18 00:43 | P.CONCC ---
History of Present Illness Service: Critical care medicine Consult date: 09/18/17 Requesting Physician: Ella Ignacio Reason for Consult: Hypotension Primary Care Provider: No Primary Care Physician Family Provider: No Primary Care Physician Chief Complaint: Right foot pain History of Present Illness: 52-year-old female with past medical history of hepatitis C, diabetes , hypertension, ulcer of the right heel who was admitted to [facility] service on 09/17/17 when she was admitted for right foot osteomyelitis. She had recently been admitted for this complaint 08/21 and left AMA on 08/29. During that admission she had an MRI of the foot 08/24/17 it was consistent with osteomyelitis. Wound cultures were positive for MRSA and group B strep. Blood cultures 08/21 were negative. She had normal ABIs. She was treated with Abx, surgical debridement by Dr. Valentine, and wound vac. She was readmitted for worsening pain in her heel. She had severe hyperglycemia without DKA. She was treated with an insulin drip and then transition to subcut. She has been hypotensive throughout the day and has been treated with fluid resuscitation. She has a 3.5 L of fluid bolus in addition to ~ 2 Liters of MIVF and meds. She has also received 2 units PRBC for Hgb 6.4 without obvious source of bleeding. She remains hypotensive and thus [facility] has been consulted to assist with hemodynamic management. She has been evaluated by podiatry, and R BKA recommended. Awaiting vascular surgery consultation. She denies chest pain, shortness of breath, abdominal pain, nausea, vomiting, flank pain. Review of Systems Constitutional: Reports fever(s), Reports malaise, Denies chills Cardiovascular: Denies chest pain, Denies shortness of breath, Denies shortness of breath with activity Respiratory: Denies chest congestion, Denies cough, Denies shortness of breath Gastrointestinal: Denies abdominal pain, Denies black, tarry stools, Denies bright, red blood in stools, Denies change in bowel habits PMFSH - History History Provided By: Patient, Galley Hand / EMT - Medical History Medical History: Medical History (Last Updated 09/18/17 @ 07:46 by Jazmine Parra MD) Osteomyelitis Benign hypertension Diabetes Hepatitis C virus - Surgical History Surgical History: Surgical History (Last Updated 09/18/17 @ 07:46 by Jazmine Parra MD) Previous section - Family History Family History: Family History (Last Updated 09/18/17 @ 07:46 by Jazmine Parra MD) Mother EtOH dependence Father EtOH dependence - Tobacco History Second Hand Smoke Exposure: No Smoking Status: Former smoker Tobacco Type: Cigarettes Packs Per Day: 2 Smoking End Date: 6 months ago - Alcohol History How Often Do You Have a Drink Containing Alcohol: Never - Substance Use History Substance History: No History of Abuse - Travel History Recent Travel in the [place] Within the Last 8 Weeks: No Recent Travel Out of the Country Within the Last 8 Weeks: No - Immunization History Tetanus Immunization: >5 Years Hx Influenza Vaccine This Season: No Medications and Allergies Active Medications: Active Medications Al Hydroxide/Mg Hydroxide (Milk Of Kristen Liq) 30 ml PO Q12H PRN PRN Reason: Mild Constipation Bisacodyl (Dulcolax Supp) 10 mg RECTAL DAILY PRN PRN Reason: SEVERE CONSITIPATION Chlorhexidine Gluconate (Chlorhexidine 2% Cloth) 3 pack TOPICAL DAILY@0400 [facility] Stop: 09/23/17 03:59 Chlorhexidine Gluconate (Chlorhexidine 2% Cloth) 3 pack TOPICAL DAILY@0400 PRN PRN Reason: Extra cloth needed Stop: 09/23/17 03:59 Dextrose (D50w Vial) 50 ml IV.PUSH UNSCH PRN PRN Reason: PER HYPOGLYCEMIA PROTOCOL Dextrose (D50w Vial) 50 ml IV.PUSH UNSCH PRN PRN Reason: PER HYPOGLYCEMIA PROTOCOL Glucagon (Glucagon Inj) 1 mg OTHER PRN PRN PRN Reason: for Hypoglycemia Protocol Glucagon (Glucagon Inj) 1 mg OTHER PRN PRN PRN Reason: for Hypoglycemia Protocol Sodium Chloride (Ns Inj) 1,000 mls @ 100 mls/hr IV.CONT .Q10H [facility] Last Infusion: 09/17/17 19:40 Dose: Infused Pharmacy Profile Note (Vancomycin Consult Pharmacy) 0 mls @ 0 mls/hr OTHER UNSCH [facility] Potassium Chloride (Kcl 40 Meq Premix Inj) 40 meq in 100 mls @ 50 mls/hr IV.SIG Q1H PRN PRN Reason: for Initial K+ ONLY < 3.5 Potassium Chloride (Kcl 40 Meq Premix Inj) 40 meq in 100 mls @ 50 mls/hr IV.SIG Q2H PRN PRN Reason: for Subsequent K+ < 3.5 Potassium Chloride (Kcl 20 Meq Premix Inj) 20 meq in 100 mls @ 100 mls/hr IV.SIG Q1H PRN PRN Reason: for K+ 3.5 to 4.4 Last Infusion: 09/17/17 11:11 Dose: Infused Potassium Chloride (Kcl 20 Meq Premix Inj) 20 meq in 100 mls @ 100 mls/hr IV.SIG Q1H PRN PRN Reason: for K+ 4.5 to 5 Potassium Chloride (Kcl 20 Meq Premix Inj) 20 meq in 100 mls @ 50 mls/hr IV.SIG Q2H PRN PRN Reason: for Subsequent K+ < 3.5 Potassium Chloride (Kcl 20 Meq Premix Inj) 20 meq in 100 mls @ 50 mls/hr IV.SIG Q2H PRN PRN Reason: for K+ 3.5 to 4.4 Last Admin: 09/17/17 11:56 Dose: 50 mls/hr Potassium Chloride (Kcl 20 Meq Premix Inj) 20 meq in 100 mls @ 50 mls/hr IV.SIG Q2H PRN PRN Reason: for K+ 4.5 to 5 Sodium Phosphate 15 mmol/ (Sodium Chloride) 105 mls @ 25 mls/hr IV.SIG UNSCH PRN PRN Reason: for Phosphate Level < 1.0 Potassium Chloride (Kcl 20 Meq Premix Inj) 20 meq in 100 mls @ 50 mls/hr IV.SIG Q2H PRN PRN Reason: for Initial K+ ONLY < 3.5 Vancomycin HCl 1,000 mg/ (Sodium Chloride) 250 mls @ 250 mls/hr IV.SIG Q24H [facility] Acetaminophen (Ofirmev Inj) 1,000 mg in 100 mls @ 400 mls/hr IV.SIG Q8HR [facility] Stop: 09/18/17 14:14 Last Admin: 09/17/17 22:34 Dose: Not Given Piperacillin/Tazobactam/Dextrose (Zosyn 2.25 Gm Premix) 50 mls @ 100 mls/hr IV.SIG Q6H [facility] Calcium Chloride 1 gm/ Sodium (Chloride) 110 mls @ 110 mls/hr IV.SIG ONCE ONE Stop: 09/18/17 01:37 Insulin Aspart (Novolog Inj) 5 units SQ TIDAC [facility] Insulin Detemir (Levemir Inj) 20 unit SQ BID [facility] Last Admin: 09/17/17 22:33 Dose: 20 unit Insulin Human Regular (Novolin R Correctional Sugar Inj) 0 units SQ Q4HR [facility]; Protocol Lactulose (Lactulose Liq) 30 ml PO DAILY PRN PRN Reason: SEVERE CONSITIPATION Miscellaneous Information ([facility] Ordered Lab Info) 0 each OTHER ONCE ONE Stop: 09/19/17 03:46 Morphine Sulfate (Morphine Inj) 2 mg IV.PUSH Q4H PRN PRN Reason: BREAKTHROUGH PAIN Ondansetron HCl (Zofran Odt) 4 mg PO Q6H PRN PRN Reason: NAUSEA OR VOMITING Senna/Docusate Sodium (Belinda-Colace) 1 tab PO BID [facility] Last Admin: 09/17/17 22:34 Dose: Not Given Sennosides (Senokot) 17.2 mg PO Q12H PRN PRN Reason: Moderate Constipation Sodium Bicarbonate (Sodium Bicarbonate 8.4% Inj) 50 meq IV.PUSH UNSCH PRN PRN Reason: for pH 6.9 to 7.0 Sodium Bicarbonate (Sodium Bicarbonate 8.4% Inj) 100 meq IV.PUSH UNSCH PRN PRN Reason: for pH less than 6.9 Temazepam (Restoril) 15 mg PO HS PRN PRN Reason: INSOMNIA Allergies Allergy/AdvReac Type Severity Reaction Status Date / Time No Known Allergies Allergy Unverified 08/02/17 06:11 Home Medications Medication Instructions Recorded Confirmed Type No Known Home Medications 09/17/17 09/17/17 History Physical Exam Vital signs: Vital Signs 09/17/17 02:10 09/17/17 03:40 09/17/17 05:56 Temperature 99.1 F Pulse Rate 121 H 121 H 110 H Respiratory Rate 17 19 16 Blood Pressure 110/55 L 121/67 123/59 L Pulse Oximetry 97 97 93 L 09/17/17 06:25 09/17/17 08:41 09/17/17 15:00 Temperature 98.3 F Pulse Rate 110 H 104 H Respiratory Rate 12 26 H Blood Pressure 93/67 L 89/52 L Pulse Oximetry 100 98 97 09/17/17 16:00 09/17/17 17:00 09/17/17 17:15 Temperature 98.3 F 98.5 F Pulse Rate 101 H 101 H Respiratory Rate 20 17 18 Blood Pressure 69/51 L 80/52 L Pulse Oximetry 96 100 09/17/17 18:00 09/17/17 18:50 09/17/17 19:00 Temperature 98.5 F 98.5 F 98.0 F Pulse Rate 92 H 97 H 101 H Respiratory Rate 14 20 18 Blood Pressure 77/46 L 77/46 L Pulse Oximetry 100 100 99 09/17/17 20:00 09/17/17 21:00 09/17/17 21:18 Temperature 98.2 F Pulse Rate 97 H 96 H 93 H Respiratory Rate 15 18 15 Blood Pressure 89/51 L 80/51 L 85/53 L Pulse Oximetry 99 94 L 97 09/17/17 22:00 09/17/17 23:00 Temperature Pulse Rate 87 81 Respiratory Rate 15 16 Blood Pressure 66/42 L 96/55 L Pulse Oximetry 98 97 Intake & Output 09/17/17 09/17/17 09/18/17 06:59 18:59 06:59 Intake Total 250 / 250 400 / 400 2400 / 2400 Balance 250 / 250 400 / 400 2400 / 2400 Weight 68.039 kg Intake: IV 250 / 250 200 / 200 1999 NS Inj 1,000 ML @ 250 mls/hr IV 1999 .CONT .Q4H [facility] Rx#:[id number] Ofirmev Inj 1,000 mg In 100 ml 100 / 100 @ 400 mls/hr IV.SIG Q8HR [facility] Rx #:[id number] Cleocin 600 mg/NS Premix 600 mg 50 / 50 In 50 ml @ 100 mls/hr IV.SIG ONCE ONE Rx#:[id number] KCl 20 mEq Premix Inj 20 meq In 100 / 100 100 ml @ 100 mls/hr IV.SIG Q1H PRN Rx#:[id number] Vancomycin Inj 1 gm In 200 ml @ 200 / 200 200 mls/hr IV.SIG SAAS ARCHITECT [facility] Rx#:[id number] Oral 200 / 200 Intake (Blood Product) Amt 0 / 0 400 / 400 Rbc As-3 Leukoreduced Unit 0 / 0 400 / 400 [id number] Rbc As-3 Leukoreduced Unit 0 / 0 [id number] Narrative: GENERAL: Well-nourished, well-developed patient who is laying in [facility] [place], awake and conversant. SKIN: Warm and dry. Ulceration of right calcaneus as per below. HEAD: Atraumatic. Normocephalic. EYES: Pupils equal and round. No scleral icterus. No injection or drainage. ENT: No nasal bleeding or discharge. Mucous membranes pink and moist. NECK: Trachea midline. No JVD. CARDIOVASCULAR: Regular rate and rhythm. No murmurs rubs or gallops. RESPIRATORY: No accessory muscle use. Clear to auscultation. Breath sounds equal bilaterally. On nasal cannula. GASTROINTESTINAL: Abdomen soft, non-tender, nondistended. No costovertebral angle tenderness. : Tristan has now been inserted with cloudy sedimentary urine output. MUSCULOSKELETAL: Extremities without clubbing, cyanosis. Feet are edematous 2+. There is large wound overlying right calcaneus with wet gangrene and exposed bone and malodorous exudate/ THere is cellulitis extending to inferior spect of malleoli. DP palpable bilat. NEUROLOGICAL: Awake and alert, oriented. No obvious cranial nerve deficits. Motor grossly within normal limits. Normal speech. - Urinary Catheter Management Indwelling Urethral Catheter Cath placed during this visit: yes Reason for continuing: Chronic Urinary Retention Insertion date: 09/17/17 Insertion time: 20:00 Septic Shock Reassessment Septic shock perfusion: reassessment completed Assessment and Plan - Problem List (1) Septic shock Code(s): A41.9 - Sepsis, unspecified organism; R65.21 - Severe sepsis with septic shock Status: Acute (2) Hyperglycemia Code(s): R73.9 - Hyperglycemia, unspecified Status: Acute (3) Acute osteomyelitis of right calcaneus Code(s): M86.171 - Other acute osteomyelitis, right ankle and foot Status: Acute (4) DM (diabetes mellitus) Code(s): E11.9 - Type 2 diabetes mellitus without complications Status: Acute - Assessment and Plan Plan: NEURO: Pain secondary to R foot osteomyelitis On Ofirmev and morphine as needed for pain. Will add Percocet. RESP: Prior tobacco abuse Nasal cannula wean as tolerated CV: Septic shock Appears adequately volume loaded and remains hypotensive. Place central line and initiate Levophed to maintain mean arterial pressure greater than 65 Continue 0.9 NaCl at 100 mL/h. Check lactic acid GI: Diabetic diet FEN/RENAL: MARIO Tristan has been inserted. Monitor intake and output. Monitor electrolytes and replace as indicated. Replacing calcium chloride 1 g IV now. F/u CPK and urine eos. ID: Septic shock Right foot osteomyelitis Send blood cultures x2. Send UA and culture as well. Continue vancomycin and Zosyn. Infectious disease has been consulted. Podiatry is following. Dr. Ugarte consulted for possible BKA for source control. HEME: Hemoglobin was 8.6 then 6.4. I am skeptical of whether this is accurate. She does not have any evidence of GI bleeding. She has received 2 units packed red cells. If hgb is not increased appropriately, will investigate for source of bleeding with scan to evaluate for retroperitoneal bleed. She is not coagulopathic but she states she does fall frequently. ENDO: Diabetes mellitus Detemir 20 units subcu twice daily. Monitor bedside glucose every 4 hours and administer medium dose sliding scale as indicated. PROPH: Pharmacologic DVT prophylaxis has been held due to concern for bleeding however I would resume if follow-up hemoglobins are stable. Famotidine p.o. for stress ulcer prophylaxis per ACCESS: Right IJ central venous line placed 09/18 #1 Full code Discussed with Ella Ignacio Critical care time 55 minutes exclusive of separately billable procedures.
--- NOTE | 2017-09-18 01:19 | XR ---
EXAM DATE: 09/18/2017 1:04 AM EDT AGE/SEX: 52 years / Female INDICATIONS: Central line placement. CLINICAL DATA: This is the patient's subsequent encounter. Patient reports that signs and symptoms h ave been present for 2 days and indicates a pain score of Nonresponsive. MEDICAL/SURGICAL HISTORY: Diabetes mellitus type II. None. COMPARISON: C, CHEST 1V SINGLE AP, 08/21/2017. . FINDINGS: A single AP portable semierect view of the chest was obtained and demonstrates interval placement of a right internal jugular central venous line with the tip projected over the superior vena cava. Ther e is no pneumothorax. There are no confluent infiltrates or effusions. The heart size is at the upper limits of normal. The bony thorax is intact. There are overlying electrocardiogram leads. CONCLUSION: 1. Interval placement of right internal jugular central venous line with no pneumothorax. 2. No acute cardiopulmonary disease. Electronically signed by: Kip Landrum MD 09/18/2017 1:18 AM EDT
[2017-09-18 01:40] LABS: Hematocrit 31.5 % (35.0-46.0); Hemoglobin 10.4 gm/dL (11.6-15.3); Mean Corpuscular HGB Conc 32.9 % (32.0-36.0); Mean Corpuscular Hemoglobin 28.6 pg (27.0-34.0); Mean Corpuscular Volume 86.8 fL (80.0-100.0); Mean Platelet Volume 10.1 fL (7.0-11.0); Platelet Count 218 th/mm3 (150-450); Red Blood Count 3.63 mil/mm3 (4.00-5.30); Red Cell Distribution Width 14.2 % (11.6-17.2); White Blood Count 18.9 th/mm3 (4.0-11.0)
[2017-09-18] MEDS: Morphine Inj 4 MG/ML Vial IV.PUSH PRN ×3 (01:42→20:33)
[2017-09-18 01:55] LABS: Carbon Dioxide 25.4 meq/L (21.0-32.0); Magnesium 1.8 mg/dL (1.5-2.5); Potassium 3.5 meq/L (3.5-5.1)
[2017-09-18 02:09] LABS: Total Protein 6.8 g/dL (6.4-8.2)
[2017-09-18] MEDS ORDERED: Chlorhexidine Gluconate 2% 1 Pack (2 Cloths) TOPICAL PRN (04:00)
[2017-09-18] MEDS: Insulin NovoLIN Regular Correctional Sugar Inj SQ SCH ×4 (04:52→20:33)
[2017-09-18] MEDS: Vancomycin Inj 1,000 MG in Sodium Chlor 0.9% Inj 250 ML IV.SIG SCH (05:18)
[2017-09-18] MEDS: Chlorhexidine Gluconate 2% 1 Pack (2 Cloths) TOPICAL SCH (05:18)
[2017-09-18 05:38] LABS: Baso % (Auto) 0.2 % (0.0-2.0); Eos # (Auto) 0.1 th/mm3 (0.0-0.4); Eos % (Auto) 0.7 % (0.0-4.0); Hematocrit 30.9 % (35.0-46.0); Hemoglobin 10.3 gm/dL (11.6-15.3); Lymph # (Auto) 1.8 th/mm3 (1.0-4.8); Lymph % (Auto) 9.6 % (9.0-44.0); Mean Corpuscular HGB Conc 33.3 % (32.0-36.0); Mean Corpuscular Volume 87.1 fL (80.0-100.0); Mono # (Auto) 0.9 th/mm3 (0.0-0.9); Mono % (Auto) 4.9 % (0.0-8.0); Neut # (Auto) 15.7 th/mm3 (1.8-7.7); Neut % (Auto) 84.6 % (16.0-70.0); Platelet Count 228 th/mm3 (150-450); Red Blood Count 3.55 mil/mm3 (4.00-5.30); Red Cell Distribution Width 14.4 % (11.6-17.2); White Blood Count 18.5 th/mm3 (4.0-11.0)
[2017-09-18 05:55] LABS: Calcium 7.7 mg/dL (8.5-10.1); Carbon Dioxide 25.1 meq/L (21.0-32.0); Magnesium 1.9 mg/dL (1.5-2.5); Potassium 3.5 meq/L (3.5-5.1)
[2017-09-18 06:07] LABS: Albumin 1.6 g/dL (3.4-5.0); Anion Gap 6 meq/L (5-15); Aspartate Aminotransferase 11 U/L (15-37); Blood Urea Nitrogen 33 mg/dL (7-18); Calcium 7.8 mg/dL (8.5-10.1); Carbon Dioxide 24.6 meq/L (21.0-32.0); Chloride 108 meq/L (98-107); Glomerular Filtration Rate 37 mL/min (>89); Glucose,Random 126 mg/dL (74-106); Potassium 3.5 meq/L (3.5-5.1); Sodium 139 meq/L (136-145)
[2017-09-18 06:08] LABS: Alanine Aminotransferase 9 U/L (10-53)
[2017-09-18 06:10] LABS: Alkaline Phosphatase 176 U/L (45-117); Total Protein 6.9 g/dL (6.4-8.2)
[2017-09-18] MEDS ORDERED: Famotidine 20 MG Tablet PO SCH (09:00)
[2017-09-18] MEDS: Senna/Docusate Sodium 8.6/50 MG Tablet PO SCH ×2 (10:37→20:33)
[2017-09-18] MEDS: Insulin Detemir Inj 1,000 UNIT/10 ML Vial SQ SCH ×2 (10:37→20:32)
[2017-09-18] MEDS: Sod Chloride 0.9% Inj 1,000 ML IV.CONT SCH (10:38)
[2017-09-18 11:43] LABS: Bacteria,Urine Rare /hpf; Bilirubin,Urine Negative (Negative); Clarity,Urine Cloudy (Clear); Color,Urine Amber (Yellw/Straw); Glucose,Urine (UA) Negative (Negative); Leukocyte Esterase,Urine Moderate (Negative); Nitrite,Urine Negative (Negative); Specific Gravity,Urine 1.018 (1.002-1.035); Urobilinogen,Urine 4 or Greater mg/dL (Less than 2)
--- NOTE | 2017-09-18 13:14 | MB ---
cc: Chapincito Song MD DATE: 09/18/2017 REQUESTING PHYSICIAN: Dr. Kimberly York. REASON FOR CONSULTATION: Osteomyelitis of the right calcaneal. HISTORY OF PRESENT ILLNESS: This is a 52-year-old white female who was admitted to the hospital after she presented with pain in her right foot. The patient was in the hospital between 08/21 and 08/29 and was being treated for diabetic foot ulcer with MRSA infection of the right foot. She states that the problem began approximately 2 weeks prior, and she was seen by the brush cleaner and had debridement and worsened. She left the hospital against medical advice on 08/29/2017. She states that she had to get back to work because she needed the money to pay her rent. However, she was unable to work and eventually presented to the emergency department because of worsening of the wound with swelling and redness of the foot. Her white blood cell count was 20.5 in the emergency department with 17% bands, and she had an abnormal urinalysis. Her heart rate was 121 and temperature was 99.1 on admission. Her blood sugar was greater than 600. The patient is currently receiving Levophed. She is awake and alert. X-ray of the foot shows fracture deformity of the calcaneus with a large overlying soft tissue defect extending into the fracture. Blood culture is pending. The white blood cell count remains elevated at 18.5. The patient was given a prescription for clindamycin when she left the hospital on 08/29/2017, but she did not fill the prescription because she could not afford it. She also has acute kidney disease and her current GFR is 37. The patient denies fever, chills, nausea, vomiting, shortness of breath or other symptoms. PAST MEDICAL HISTORY: Diabetes mellitus, hypertension, hepatitis C, and diabetic neuropathy. ALLERGIES: NO KNOWN DRUG ALLERGIES. MEDICATIONS: 1. Vancomycin. 2. Piperacillin/tazobactam 3. Pepcid. 4. Insulin. 5. Morphine sulfate p.r.n. 6. Potassium. SOCIAL HISTORY: The patient is a former smoker. She quit tobacco use 8 months ago. Denies alcohol use. Denies illicit drugs. FAMILY HISTORY: Noncontributory. REVIEW OF SYSTEMS: All systems have been reviewed and are negative. PHYSICAL EXAMINATION: GENERAL: This is a well-developed female who is in no acute distress. She is awake and alert and oriented. VITAL SIGNS: Include temperature 97.8, blood pressure 143/72, heart rate 83. HEENT: The head is atraumatic. Extraocular movements are grossly intact. Pupils reactive to light. No icterus. Oropharynx: Moist mucosa. No visible lesions. NECK: Supple without adenopathy or swelling. LUNGS: Clear to auscultation. HEART: Regular S1 and S2. No murmurs heard. ABDOMEN: Bowel sounds present. Soft and nontender. RECTAL: Not performed. EXTREMITIES: The right leg is swollen from the dorsum of the foot, which has 3+ edema and all the way up to the knee region, which has 2+ edema. The entire dorsum of the foot on the plantar aspect of the foot is red and there is an ulceration at the plantar aspect of the foot, which has foul smelling, purulent, bloody drainage. Sensation is absent at both feet. SKIN: Otherwise has no diffuse rash. NEUROLOGIC: The patient is alert and oriented. No gross focal findings. PSYCHIATRIC: The patient is calm and cooperative. ASSESSMENT: 1. 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 2. Diabetic foot infection due to methicillin-resistant Staphylococcus aureus. 3. Sepsis indicated by tachycardia and elevated respiratory rate along with increased white blood cell count and abnormal urinalysis and foot wound culture. Possible sources include wound of the fluid and also urine. 4. Acute kidney disease. RECOMMENDATIONS: 1. Continue the vancomycin. 2. Continue piperacillin/tazobactam. 3. Monitor white blood cell count. 4. Monitor blood cultures. 5. Monitor urine culture. 6. Monitor clinical response. The patient was evaluated by vascular surgery and plans are to do amputation of the right leg below the knee. Thank you for this consultation. I will follow the patient's progress and cultures and will make further recommendations upon followup. MD ABIGAIL Lopez/TROY , 12:23 PM , 12:40 PM
--- NOTE | 2017-09-18 13:18 | P.PNADD ---
Addendum to Inpatient Note Reason for Addendum: Additional Documentation (Seen and examined 09/18. Discussed with patient and Beverly/RN. Discussed with Dr. Ugarte. Currently on 1 mcg/min of norepinephrine. MRI foot pending. Much improved after care of overnight hooking machine operator. Adjusted insulin detemir to 5 units subcu twice daily. Added bronchodilator therapy and oxygen. Dr. Ugarte to evaluate lower extremity vascular today.)
[2017-09-18] MEDS: Piperacil/Tazo 2.25 GM Premix 50 ML IV.SIG SCH (14:26)
--- NOTE | 2017-09-18 19:15 | P.PNVS ---
Subjective Subjective/Hospital Course: 51-year-old female with diabetes mellitus and a huge necrotic ulcer of the RIGHT heel and necrosis of the left midfoot with exposed bone and osteomyelitis At this point there are no other options available then below-knee amputation and will go ahead with the same on Full consult dictated Thanks J Objective Vital Signs / I&O: Vital Signs 09/17/17 20:00 09/17/17 21:00 09/17/17 21:18 Temperature 98.2 F Pulse Rate 97 H 96 H 93 H Respiratory Rate 15 18 15 Blood Pressure 89/51 L 80/51 L 85/53 L Pulse Oximetry 99 94 L 97 09/17/17 22:00 09/17/17 23:00 09/18/17 00:00 Temperature 98.7 F Pulse Rate 87 81 91 H Respiratory Rate 15 16 16 Blood Pressure 66/42 L 96/55 L 128/62 Pulse Oximetry 98 97 97 09/18/17 01:00 09/18/17 02:00 09/18/17 03:00 Temperature Pulse Rate 93 H 95 H 90 Respiratory Rate 18 14 12 Blood Pressure 112/63 125/71 133/73 Pulse Oximetry 97 96 98 09/18/17 04:00 09/18/17 04:52 09/18/17 05:00 Temperature 98.2 F Pulse Rate 89 81 Respiratory Rate 12 12 12 Blood Pressure 131/72 123/66 Pulse Oximetry 98 99 09/18/17 06:00 09/18/17 07:00 09/18/17 08:00 Temperature 82 F L 97.8 F Pulse Rate 81 82 99 H Respiratory Rate 12 14 12 Blood Pressure 136/66 142/72 H 141/79 H Pulse Oximetry 98 97 96 09/18/17 09:00 09/18/17 10:00 09/18/17 11:00 Temperature Pulse Rate 96 H 93 H 92 H Respiratory Rate 11 L 22 14 Blood Pressure 123/58 L 140/83 148/67 H Pulse Oximetry 98 98 98 09/18/17 12:00 09/18/17 13:00 09/18/17 14:00 Temperature 98.1 F Pulse Rate 87 89 88 Respiratory Rate 20 19 15 Blood Pressure 143/72 H 111/71 116/64 Pulse Oximetry 99 99 99 09/18/17 15:00 09/18/17 15:56 07/31/18 16:00 Temperature 97.9 F Pulse Rate 87 87 Respiratory Rate 21 14 Blood Pressure 105/58 L 105/57 L Pulse Oximetry 96 96 99 09/18/17 17:00 09/18/17 17:15 09/18/17 17:19 Temperature Pulse Rate 97 H Respiratory Rate 19 23 24 Blood Pressure 109/64 Pulse Oximetry 95 09/18/17 18:00 Temperature Pulse Rate 97 H Respiratory Rate 12 Blood Pressure 123/78 Pulse Oximetry 95 Intake & Output 09/18/17 09/18/17 09/19/17 06:59 18:59 06:59 Intake Total 2500 / 2500 950 / 950 Output Total 1000 / 1000 550 / 550 Balance 1500 / 1500 400 / 400 Weight 75 kg Intake: IV 1999 150 / 150 NS Inj 1,000 ML @ 250 mls/hr IV 1999 .CONT .Q4H RICARDO Rx#:[id number] Ofirmev Inj 1,000 mg In 100 ml 100 / 100 @ 400 mls/hr IV.SIG Q8HR RICARDO Rx #:[id number] Zosyn 2.25 GM Premix 50 ML @ 50 / 50 100 mls/hr IV.SIG Q6HR RICARDO Rx#: [id number] Oral 100 / 100 800 / 800 Intake (Blood Product) Amt 400 / 400 Rbc As-3 Leukoreduced Unit 400 / 400 [id number] Rbc As-3 Leukoreduced Unit 0 / 0 [id number] Output: Urine Amount (Catheter) 1000 / 1000 550 / 550 Indwelling Urethral Catheter 1000 / 1000 550 / 550 Other: # Bowel Movements 0 Laboratory Results - last 24 hr 09/17/17 09/17/17 09/18/17 16:20 22:24 01:21 WBC RBC Hgb Hct MCV MCH MCHC RDW Plt Count MPV Neut % (Auto) Lymph % (Auto) [place] % (Auto) Eos % (Auto) Baso % (Auto) Neut # (Auto) Lymph # (Auto) [place] # (Auto) Eos # (Auto) Baso # (Auto) WBC Differential Differential Comment Sodium 138 Potassium 3.5 Chloride 106 Carbon Dioxide 25.4 Anion Gap 7 BUN 36 H Creatinine 1.72 H Estimated GFR 31 L POC Glucose 305 H Random Glucose 201 H D Lactic Acid Calcium 7.0 L* Prot Corrected Calcium 7.2 L* Magnesium 1.8 Total Bilirubin AST ALT Alkaline Phosphatase Total Creatine Kinase Total Protein 6.8 Albumin Urine Color Urine Clarity Urine pH Ur Specific [place] Urine Protein Urine Glucose (UA) Urine Ketones Urine Occult Blood Urine Nitrate Urine Bilirubin Urine Urobilinogen Ur Leukocyte Esterase Urine RBC Urine WBC Urine WBC Clumps Urine Bacteria Urine Yeast Micro UA Comment Urine Culture Comments Urine Eosinophils Blood Type O Negative Blood Type Recheck Required Antibody Screen Negative MTS Gel Crossmatch See Detail 09/18/17 09/18/17 09/18/17 01:21 01:21 04:21 WBC 18.9 H RBC 3.63 L Hgb 10.4 L D Hct 31.5 L MCV 86.8 D MCH 28.6 MCHC 32.9 RDW 14.2 Plt Count 218 D MPV 10.1 Neut % (Auto) Lymph % (Auto) [place] % (Auto) Eos % (Auto) Baso % (Auto) Neut # (Auto) Lymph # (Auto) [place] # (Auto) Eos # (Auto) Baso # (Auto) WBC Differential Differential Comment Sodium Potassium Chloride Carbon Dioxide Anion Gap BUN Creatinine Estimated GFR POC Glucose 129 H Random Glucose Lactic Acid 2.0 Calcium Prot Corrected Calcium Magnesium Total Bilirubin AST ALT Alkaline Phosphatase Total Creatine Kinase Total Protein Albumin Urine Color Urine Clarity Urine pH Ur Specific [place] Urine Protein Urine Glucose (UA) Urine Ketones Urine Occult Blood Urine Nitrate Urine Bilirubin Urine Urobilinogen Ur Leukocyte Esterase Urine RBC Urine WBC Urine WBC Clumps Urine Bacteria Urine Yeast Micro UA Comment Urine Culture Comments Urine Eosinophils Blood Type Blood Type Recheck Antibody Screen MTS Gel Crossmatch 09/18/17 09/18/17 09/18/17 05:00 05:00 05:00 WBC 18.5 H RBC 3.55 L Hgb 10.3 L Hct 30.9 L MCV 87.1 MCH 29.0 MCHC 33.3 RDW 14.4 Plt Count 228 MPV 10.0 Neut % (Auto) 84.6 H Lymph % (Auto) 9.6 [place] % (Auto) 4.9 Eos % (Auto) 0.7 Baso % (Auto) 0.2 Neut # (Auto) 15.7 H Lymph # (Auto) 1.8 [place] # (Auto) 0.9 Eos # (Auto) 0.1 Baso # (Auto) 0.0 WBC Differential . Differential Comment Auto diff final Sodium 139 139 Potassium 3.5 3.5 Chloride 108 H 108 H Carbon Dioxide 24.6 25.1 Anion Gap 6 6 BUN 33 H 36 H Creatinine 1.49 H 1.48 H Estimated GFR 37 L 37 L POC Glucose Random Glucose 126 H 130 H Lactic Acid Calcium 7.8 L D 7.7 L Prot Corrected Calcium Magnesium 1.9 Total Bilirubin 1.9 H AST 11 L ALT 9 L Alkaline Phosphatase 176 H Total Creatine Kinase Total Protein 6.9 Albumin 1.6 L Urine Color Urine Clarity Urine pH Ur Specific [place] Urine Protein Urine Glucose (UA) Urine Ketones Urine Occult Blood Urine Nitrate Urine Bilirubin Urine Urobilinogen Ur Leukocyte Esterase Urine RBC Urine WBC Urine WBC [place] Urine Bacteria Urine Yeast Micro UA Comment Urine Culture Comments Urine Eosinophils Blood Type Blood Type Recheck Antibody Screen MTS Gel Crossmatch 09/18/17 09/18/17 09/18/17 08:03 09:45 09:45 WBC RBC Hgb Hct MCV MCH MCHC RDW Plt Count MPV Neut % (Auto) Lymph % (Auto) [place] % (Auto) Eos % (Auto) Baso % (Auto) Neut # (Auto) Lymph # (Auto) [place] # (Auto) Eos # (Auto) Baso # (Auto) WBC Differential Differential Comment Sodium Potassium Chloride Carbon Dioxide Anion Gap BUN Creatinine Estimated GFR POC Glucose 103 Random Glucose Lactic Acid Calcium Prot Corrected Calcium Magnesium Total Bilirubin AST ALT Alkaline Phosphatase Total Creatine Kinase Total Protein Albumin Urine Color Anh Urine Clarity Cloudy H Urine pH 5.0 Ur Specific [place] 1.018 Urine Protein 30 H Urine Glucose (UA) Negative Urine Ketones Negative Urine Occult Blood Moderate H Urine Nitrate Negative Urine Bilirubin Negative Urine Urobilinogen 4 or greater Ur Leukocyte Esterase Moderate H Urine RBC 9 H Urine WBC 61 H Urine WBC Clumps Rare H Urine Bacteria Rare H Urine Yeast Many H Micro UA Comment Cath-culture ind Urine Culture Comments Cath-cult indicated Urine Eosinophils None seen Blood Type Blood Type Recheck Antibody Screen MTS Gel Crossmatch 09/18/17 09/18/17 09/18/17 12:00 12:31 16:47 WBC RBC Hgb Hct MCV MCH MCHC RDW Plt Count MPV Neut % (Auto) Lymph % (Auto) [place] % (Auto) Eos % (Auto) Baso % (Auto) Neut # (Auto) Lymph # (Auto) [place] # (Auto) Eos # (Auto) Baso # (Auto) WBC Differential Differential Comment Sodium Potassium Chloride Carbon Dioxide Anion Gap BUN Creatinine Estimated GFR POC Glucose 87 84 Random Glucose Lactic Acid Calcium Prot Corrected Calcium Magnesium Total Bilirubin AST ALT Alkaline Phosphatase Total Creatine Kinase 39 Total Protein Albumin Urine Color Urine Clarity Urine pH Ur Specific [place] Urine Protein Urine Glucose (UA) Urine Ketones Urine Occult Blood Urine Nitrate Urine Bilirubin Urine Urobilinogen Ur Leukocyte Esterase Urine RBC Urine WBC Urine WBC [place]umps Urine Bacteria Urine Yeast Micro UA Comment Urine Culture Comments Urine Eosinophils Blood Type Blood Type Recheck Antibody Screen MTS Gel Crossmatch Impressions Foot X-Ray 09/17/17 02:18 CONCLUSION: 1. Fracture deformity of the calcaneus with large overlying soft tissue defect which extends into the fracture. Chest X-Ray 09/18/17 00:35 CONCLUSION: 1. Interval placement of right internal jugular central venous line with no pneumothorax. 2. No acute cardiopulmonary disease.
--- NOTE | 2017-09-18 19:54 | MB ---
cc: Tim Ugarte MD, Slobodan MD DATE: 09/18/2017 REASON FOR CONSULTATION: Gangrene of the right heel, osteomyelitis, diabetes mellitus, peripheral vascular disease. HISTORY OF PRESENT ILLNESS: This 52-year-old female is currently in the intensive care unit after she presented to the ER with heel pain and osteomyelitis of the right foot. The patient was initially admitted at the beginning of August, but then signed out AMA. She did not fill the prescription and now comes back with a similar problem, but much worse. The patient was seen by hot metal charger, Dr. Valentine, and then Dr. York and issue arises about non-salvageable condition. PAST MEDICAL HISTORY: Diabetes mellitus, hypertension, hepatitis C, and now ulcer of the right heel and foot with necrosis of the bone. PAST SURGICAL HISTORY: Biopsy of the same and debridement of the same. MEDICATIONS: Can be found in the record. SOCIAL HISTORY: The patient smoked about a year ago about a pack a day and does not drink. PHYSICAL EXAMINATION: GENERAL: Reveals a 52-year-old female. HEENT: Normocephalic. No trauma to the head. Pupils are equal, reactive. Extraocular muscles intact. NECK: Supple. Bilateral carotid pulses. No bruits. CHEST: Clear, bilateral breath sounds, slightly decreased over both apices. HEART: Regular rhythm. ABDOMEN: Soft. Active bowel sounds. No rebound, no guarding, no masses. EXTREMITIES: The patient actually has bilateral femoral pulses palpable. She has dopplerable strong and palpable popliteal pulses and then on the left and right side a palpable dorsalis pedis and posterior tibial by Doppler. On the right side, the patient has palpable dorsalis pedis and dopplerable posterior tibial. She has a large penetrating ulcer of the right heel, which encompasses the entire heel, extends into the mid foot with exposed calcaneus and with necrosis of the tissue. NEUROLOGIC: The patient is grossly intact with some decreased sensation in both legs. RECOMMENDATIONS: This 52-year-old female who has a non-reconstructible condition of the right leg. The vascular supply is generally intact, but the patient has right heel ulcer which is not curable. It involves osteomyelitis and there is no other way to treat this but below-knee amputation. The patient will be scheduled for below-knee amputation for . I have discussed at length with the patient the options and they are not really any other options available. patient will have CTA when she recovers some, so we can objectively see what kind of blood supply she has further down and if we can remedy some of the disease so this will not happen on the other leg, although by clinical examination I do not think that she has either appreciable inflow or outflow vascular disease.Other than that, right now priority should be amputation and I agree with Dr. York on it and we will go ahead on . Thank you very much for referral. Critical care time 38 minutes. MD SYLVIA Morales/ , 07:14 PM , 07:23 PM MTDD
[2017-09-18] MEDS: Mupirocin 2% Nasal Oint Topical Syringe EACH NARE SCH (20:32)
[2017-09-18] MEDS: Dextrose 50% in Water 50 ML Vial IV.PUSH PRN (22:43)
--- NOTE | 2017-09-18 23:13 | P.PNPOD ---
Subjective Interval history: Patient seen bedside. States she was able to speak to vascular surgery. She is in agreement with below the knee amputation. States she doesn't feel well. Physical Exam Vital signs: Vital Signs 09/18/17 00:00 09/18/17 01:00 09/18/17 02:00 Temperature 98.7 F Pulse Rate 91 H 93 H 95 H Respiratory Rate 16 18 14 Blood Pressure 128/62 112/63 125/71 Pulse Oximetry 97 97 96 09/18/17 03:00 09/18/17 04:00 09/18/17 04:52 Temperature 98.2 F Pulse Rate 90 89 Respiratory Rate 12 12 12 Blood Pressure 133/73 131/72 Pulse Oximetry 98 98 09/18/17 05:00 09/18/17 06:00 09/18/17 07:00 Temperature 82 F L Pulse Rate 81 81 82 Respiratory Rate 12 12 14 Blood Pressure 123/66 136/66 142/72 H Pulse Oximetry 99 98 97 09/18/17 08:00 09/18/17 09:00 09/18/17 10:00 Temperature 97.8 F Pulse Rate 99 H 96 H 93 H Respiratory Rate 12 11 L 22 Blood Pressure 141/79 H 123/58 L 140/83 Pulse Oximetry 96 98 98 09/18/17 11:00 09/18/17 12:00 09/18/17 13:00 Temperature 98.1 F Pulse Rate 92 H 87 89 Respiratory Rate 14 20 19 Blood Pressure 148/67 H 143/72 H 111/71 Pulse Oximetry 98 99 99 09/18/17 14:00 09/18/17 15:00 09/18/17 15:56 Temperature Pulse Rate 88 87 Respiratory Rate 15 21 Blood Pressure 116/64 105/58 L Pulse Oximetry 99 96 96 09/18/17 16:00 09/18/17 17:00 09/18/17 17:15 Temperature 97.9 F Pulse Rate 87 97 H Respiratory Rate 14 19 23 Blood Pressure 105/57 L 109/64 Pulse Oximetry 99 95 09/18/17 17:19 09/18/17 18:00 09/18/17 19:00 Temperature 97.8 F Pulse Rate 97 H 102 H Respiratory Rate 24 12 19 Blood Pressure 123/78 121/67 Pulse Oximetry 95 96 09/18/17 19:56 09/18/17 20:00 09/18/17 21:00 Temperature Pulse Rate 98 H 97 H Respiratory Rate 12 18 Blood Pressure 110/67 99/69 L Pulse Oximetry 97 96 96 09/18/17 22:00 Temperature Pulse Rate 104 H Respiratory Rate 17 Blood Pressure 122/72 Pulse Oximetry 98 Intake & Output 09/18/17 09/18/17 09/19/17 06:59 18:59 06:59 Intake Total 2500 / 2500 950 / 950 250 / 250 Output Total 1000 / 1000 550 / 550 Balance 1500 / 1500 400 / 400 250 / 250 Weight 75 kg Intake: IV 1999 150 / 150 250 / 250 NS Inj 1,000 ML @ 250 mls/hr IV 1999 .CONT .Q4H JOSE R Rx#:[id number] Ofirmev Inj 1,000 mg In 100 ml 100 / 100 @ 400 mls/hr IV.SIG Q8HR [facility]SE [facility] Rx #:[id number] Zosyn 2.25 GM Premix 50 ML @ 50 / 50 100 mls/hr IV.SIG Q6HR JOSE [facility] Rx#: [id number] Vancomycin Inj 1,000 MG In NS 250 / 250 Inj 250 ML @ 250 mls/hr IV.SIG Q24H [facility]SE [facility] Rx#:[id number] Oral 100 / 100 800 / 800 Intake (Blood Product) Amt 400 / 400 Rbc As-3 Leukoreduced Unit 400 / 400 [id number] Rbc As-3 Leukoreduced Unit 0 / 0 [id number] Output: Urine Amount (Catheter) 1000 / 1000 550 / 550 Indwelling Urethral Catheter 1000 / 1000 550 / 550 Other: # Bowel Movements 0 Narrative: Dressing to right lower extremity intact with mild strikethrough noted. Medications and Allergies Active Medications: Active Medications Acetaminophen (Tylenol Liq) 650 mg PO Q6H PRN PRN Reason: FEVER Al Hydroxide/Mg Hydroxide (Milk Of Magnesia Liq) 30 ml PO Q12H PRN PRN Reason: Mild Constipation Albuterol (Duoneb Neb (Jose R)) 1 ampul NEB Q4HR WHILE AWAKE NEB [facility] Last Admin: 09/18/17 20:40 Dose: Not Given Albuterol (Albuterol Neb (Prn)) 2.5 mg NEB Q2HR NEB PRN PRN Reason: DYSPNEA Bisacodyl (Dulcolax Supp) 10 mg RECTAL DAILY PRN PRN Reason: SEVERE CONSITIPATION Chlorhexidine Gluconate (Chlorhexidine 2% Cloth) 3 pack TOPICAL DAILY@0400 [facility] Stop: 09/23/17 03:59 Last Admin: 09/18/17 05:18 Dose: 3 pack Chlorhexidine Gluconate (Chlorhexidine 2% Cloth) 3 pack TOPICAL DAILY@0400 PRN PRN Reason: Extra cloth needed Stop: 09/23/17 03:59 Dextrose (D50w Vial) 50 ml IV.PUSH UNSCH PRN PRN Reason: PER HYPOGLYCEMIA PROTOCOL Last Admin: 09/18/17 22:43 Dose: 50 ml Glucagon (Glucagon Inj) 1 mg OTHER PRN PRN PRN Reason: for Hypoglycemia Protocol Sodium Chloride (Ns Inj) 1,000 mls @ 100 mls/hr IV.CONT .Q10H [facility] Last Infusion: 09/17/17 19:40 Dose: Infused Pharmacy Profile Note (Vancomycin Consult Pharmacy) 0 mls @ 0 mls/hr OTHER UNSCH [facility] Potassium Chloride (Kcl 40 Meq Premix Inj) 40 meq in 100 mls @ 50 mls/hr IV.SIG Q1H PRN PRN Reason: for Initial K+ ONLY < 3.5 Potassium Chloride (Kcl 40 Meq Premix Inj) 40 meq in 100 mls @ 50 mls/hr IV.SIG Q2H PRN PRN Reason: for Subsequent K+ < 3.5 Potassium Chloride (Kcl 20 Meq Premix Inj) 20 meq in 100 mls @ 100 mls/hr IV.SIG Q1H PRN PRN Reason: for K+ 3.5 to 4.4 Last Infusion: 09/17/17 11:11 Dose: Infused Potassium Chloride (Kcl 20 Meq Premix Inj) 20 meq in 100 mls @ 100 mls/hr IV.SIG Q1H PRN PRN Reason: for K+ 4.5 to 5 Potassium Chloride (Kcl 20 Meq Premix Inj) 20 meq in 100 mls @ 50 mls/hr IV.SIG Q2H PRN PRN Reason: for Subsequent K+ < 3.5 Potassium Chloride (Kcl 20 Meq Premix Inj) 20 meq in 100 mls @ 50 mls/hr IV.SIG Q2H PRN PRN Reason: for K+ 3.5 to 4.4 Last Admin: 09/17/17 11:56 Dose: 50 mls/hr Potassium Chloride (Kcl 20 Meq Premix Inj) 20 meq in 100 mls @ 50 mls/hr IV.SIG Q2H PRN PRN Reason: for K+ 4.5 to 5 Sodium Phosphate 15 mmol/ (Sodium Chloride) 105 mls @ 25 mls/hr IV.SIG UNSCH PRN PRN Reason: for Phosphate Level < 1.0 Potassium Chloride (Kcl 20 Meq Premix Inj) 20 meq in 100 mls @ 50 mls/hr IV.SIG Q2H PRN PRN Reason: for Initial K+ ONLY < 3.5 Vancomycin HCl 1,000 mg/ (Sodium Chloride) 250 mls @ 250 mls/hr IV.SIG Q24H [facility] Last Infusion: 09/18/17 19:45 Dose: Infused Norepinephrine Bitartrate 4 mg (/ Sodium Chloride) 250 mls @ 7.5 mls/hr IV.SIG TITRATE PRN; Protocol PRN Reason: Per Protocol Last Titration: 09/18/17 18:25 Dose: 0 mcg/min, 0 mls/hr Piperacillin/Tazobactam/Dextrose (Zosyn 2.25 Gm Premix) 50 mls @ 100 mls/hr IV.SIG Q6HR [facility] Last Infusion: 09/18/17 14:56 Dose: Infused Insulin Detemir (Levemir Inj) 5 unit SQ BID [facility] Last Admin: 09/18/17 20:32 Dose: Not Given Insulin Human Regular (Novolin R Correctional Sugar Inj) 0 units SQ ACHS AND 3AM JOSE R; Protocol Last Admin: 09/18/17 20:33 Dose: Not Given Lactulose (Lactulose Liq) 30 ml PO DAILY PRN PRN Reason: SEVERE CONSITIPATION Miscellaneous (Pill Splitter) [facility] Miscellaneous Information ([facility] Ordered Lab Info) 0 each OTHER ONCE ONE Stop: 09/19/17 03:46 Morphine Sulfate (Morphine Inj) 2 mg IV.PUSH Q4H PRN PRN Reason: BREAKTHROUGH PAIN Last Admin: 09/18/17 20:33 Dose: 2 mg Mupirocin (Bactroban 2% Nasal Oint) 1 applicatio EACH NARE BID [facility] Last Admin: 09/18/17 20:32 Dose: 1 applicatio Ondansetron HCl (Zofran Odt) 4 mg PO Q6H PRN PRN Reason: NAUSEA OR VOMITING Oxycodone HCl (Roxicodone) 5 mg PO Q4H PRN PRN Reason: PAIN SCALE 6 TO 10 Last Admin: 09/18/17 16:39 Dose: 5 mg Pantoprazole Sodium (Protonix) 20 mg PO DAILY [facility] Senna/Docusate Sodium (Belinda-Colace) 1 tab PO BID JOSE [facility] Last Admin: 09/18/17 20:33 Dose: 1 tab Sennosides (Senokot) 17.2 mg PO Q12H PRN PRN Reason: Moderate Constipation Sodium Bicarbonate (Sodium Bicarbonate 8.4% Inj) 50 meq IV.PUSH UNSCH PRN PRN Reason: for pH 6.9 to 7.0 Sodium Bicarbonate (Sodium Bicarbonate 8.4% Inj) 100 meq IV.PUSH UNSCH PRN PRN Reason: for pH less than 6.9 Temazepam (Restoril) 15 mg PO HS PRN PRN Reason: INSOMNIA Terbutaline Sulfate (Brethine Inj) 1 mg SQ UNSCH PRN PRN Reason: For Extravasation Allergies Allergy/AdvReac Type Severity Reaction Status Date / Time No Known Allergies Allergy Unverified 08/02/17 06:11 Home Medications Medication Instructions Recorded Confirmed Type No Known Home Medications 09/17/17 09/17/17 History Results - Labs CBC & Chem 7: 09/18/17 05:00 09/18/17 05:00 Laboratory Results - last 24 hr 09/18/17 09/18/17 09/18/17 01:21 01:21 01:21 WBC 18.9 H RBC 3.63 L Hgb 10.4 L D Hct 31.5 L MCV 86.8 D MCH 28.6 MCHC 32.9 RDW 14.2 Plt Count 218 D MPV 10.1 Neut % (Auto) Lymph % (Auto) [place] % (Auto) Eos % (Auto) Baso % (Auto) Neut # (Auto) Lymph # (Auto) [place] # (Auto) Eos # (Auto) Baso # (Auto) WBC Differential Differential Comment Sodium 138 Potassium 3.5 Chloride 106 Carbon Dioxide 25.4 Anion Gap 7 BUN 36 H Creatinine 1.72 H Estimated GFR 31 L POC Glucose Random Glucose 201 H D Lactic Acid 2.0 Calcium 7.0 L* Prot Corrected Calcium 7.2 L* Magnesium 1.8 Total Bilirubin AST ALT Alkaline Phosphatase Total Creatine Kinase Total Protein 6.8 Albumin Urine Color Urine Clarity Urine pH Ur Specific [place] Urine Protein Urine Glucose (UA) Urine Ketones Urine Occult Blood Urine Nitrate Urine Bilirubin Urine Urobilinogen Ur Leukocyte Esterase Urine RBC Urine WBC Urine WBC Clumps Urine Bacteria Urine Yeast Micro UA Comment Urine Culture Comments Urine Eosinophils 09/18/17 09/18/17 09/18/17 04:21 05:00 05:00 WBC 18.5 H RBC 3.55 L Hgb 10.3 L Hct 30.9 L MCV 87.1 MCH 29.0 MCHC 33.3 RDW 14.4 Plt Count 228 MPV 10.0 Neut % (Auto) 84.6 H Lymph % (Auto) 9.6 [place] % (Auto) 4.9 Eos % (Auto) 0.7 Baso % (Auto) 0.2 Neut # (Auto) 15.7 H Lymph # (Auto) 1.8 [place] # (Auto) 0.9 Eos # (Auto) 0.1 Baso # (Auto) 0.0 WBC Differential . Differential Comment Auto diff final Sodium 139 Potassium 3.5 Chloride 108 H Carbon Dioxide 24.6 Anion Gap 6 BUN 33 H Creatinine 1.49 H Estimated GFR 37 L POC Glucose 129 H Random Glucose 126 H Lactic Acid Calcium 7.8 L D Prot Corrected Calcium Magnesium Total Bilirubin 1.9 H AST 11 L ALT 9 L Alkaline Phosphatase 176 H Total Creatine Kinase Total Protein 6.9 Albumin 1.6 L Urine Color Urine Clarity Urine pH Ur Specific [place] Urine Protein Urine Glucose (UA) Urine Ketones Urine Occult Blood Urine Nitrate Urine Bilirubin Urine Urobilinogen Ur Leukocyte Esterase Urine RBC Urine WBC Urine WBC Clumps Urine Bacteria Urine Yeast Micro UA Comment Urine Culture Comments Urine Eosinophils 09/18/17 09/18/17 09/18/17 05:00 08:03 09:45 WBC RBC Hgb Hct MCV MCH MCHC RDW Plt Count MPV Neut % (Auto) Lymph % (Auto) [place] % (Auto) Eos % (Auto) Baso % (Auto) Neut # (Auto) Lymph # (Auto) [place] # (Auto) Eos # (Auto) Baso # (Auto) WBC Differential Differential Comment Sodium 139 Potassium 3.5 Chloride 108 H Carbon Dioxide 25.1 Anion Gap 6 BUN 36 H Creatinine 1.48 H Estimated GFR 37 L POC Glucose 103 Random Glucose 130 H Lactic Acid Calcium 7.7 L Prot Corrected Calcium Magnesium 1.9 Total Bilirubin AST ALT Alkaline Phosphatase Total Creatine Kinase Total Protein Albumin Urine Color Anh Urine Clarity Cloudy H Urine pH 5.0 Ur Specific [place] 1.018 Urine Protein 30 H Urine Glucose (UA) Negative Urine Ketones Negative Urine Occult Blood Moderate H Urine Nitrate Negative Urine Bilirubin Negative Urine Urobilinogen 4 or greater Ur Leukocyte Esterase Moderate H Urine RBC 9 H Urine WBC 61 H Urine WBC Clumps Rare H Urine Bacteria Rare H Urine Yeast Many H Micro UA Comment Cath-culture ind Urine Culture Comments Cath-cult indicated Urine Eosinophils 09/18/17 09/18/17 09/18/17 09:45 12:00 12:31 WBC RBC Hgb Hct MCV MCH MCHC RDW Plt Count MPV Neut % (Auto) Lymph % (Auto) [place] % (Auto) Eos % (Auto) Baso % (Auto) Neut # (Auto) Lymph # (Auto) [place] # (Auto) Eos # (Auto) Baso # (Auto) WBC Differential Differential Comment Sodium Potassium Chloride Carbon Dioxide Anion Gap BUN Creatinine Estimated GFR POC Glucose 87 Random Glucose Lactic Acid Calcium Prot Corrected Calcium Magnesium Total Bilirubin AST ALT Alkaline Phosphatase Total Creatine Kinase 39 Total Protein Albumin Urine Color Urine Clarity Urine pH Ur Specific [place] Urine Protein Urine Glucose (UA) Urine Ketones Urine Occult Blood Urine Nitrate Urine Bilirubin Urine Urobilinogen Ur Leukocyte Esterase Urine RBC Urine WBC Urine WBC Clumps Urine Bacteria Urine Yeast Micro UA Comment Urine Culture Comments Urine Eosinophils None seen 09/18/17 09/18/17 09/18/17 16:47 20:31 22:37 WBC RBC Hgb Hct MCV MCH MCHC RDW Plt Count MPV Neut % (Auto) Lymph % (Auto) [place] % (Auto) Eos % (Auto) Baso % (Auto) Neut # (Auto) Lymph # (Auto) [place] # (Auto) Eos # (Auto) Baso # (Auto) WBC Differential Differential Comment Sodium Potassium Chloride Carbon Dioxide Anion Gap BUN Creatinine Estimated GFR POC Glucose 84 58 L 65 L Random Glucose Lactic Acid Calcium Prot Corrected Calcium Magnesium Total Bilirubin AST ALT Alkaline Phosphatase Total Creatine Kinase Total Protein Albumin Urine Color Urine Clarity Urine pH Ur Specific [place] Urine Protein Urine Glucose (UA) Urine Ketones Urine Occult Blood Urine Nitrate Urine Bilirubin Urine Urobilinogen Ur Leukocyte Esterase Urine RBC Urine WBC Urine WBC Clumps Urine Bacteria Urine Yeast Micro UA Comment Urine Culture Comments Urine Eosinophils - Imaging Impressions Chest X-Ray 09/18/17 00:35 CONCLUSION: 1. Interval placement of right internal jugular central venous line with no pneumothorax. 2. No acute cardiopulmonary disease. Assessment and Plan - Plan 52-year-old female with pathologic calcaneal fracture secondary to osteomyelitis and associated plantar heel ulceration Patient evaluated and examined with all questions answered Agree and unfortunately recommend below the knee amputation Patient is also in agreement with below the knee amputation
[2017-09-19 01:58] LABS: Baso # (Auto) 0.1 th/mm3 (0.0-0.2); Baso % (Auto) 0.6 % (0.0-2.0); Eos # (Auto) 0.1 th/mm3 (0.0-0.4); Eos % (Auto) 0.8 % (0.0-4.0); Hematocrit 30.7 % (35.0-46.0); Hemoglobin 10.5 gm/dL (11.6-15.3); Lymph # (Auto) 1.7 th/mm3 (1.0-4.8); Lymph % (Auto) 12.4 % (9.0-44.0); Mean Corpuscular HGB Conc 34.3 % (32.0-36.0); Mean Corpuscular Hemoglobin 29.4 pg (27.0-34.0); Mean Corpuscular Volume 85.8 fL (80.0-100.0); Mono # (Auto) 0.5 th/mm3 (0.0-0.9); Mono % (Auto) 3.9 % (0.0-8.0); Neut # (Auto) 11.1 th/mm3 (1.8-7.7); Neut % (Auto) 82.3 % (16.0-70.0); Platelet Count 198 th/mm3 (150-450); Red Blood Count 3.58 mil/mm3 (4.00-5.30); Red Cell Distribution Width 14.7 % (11.6-17.2); White Blood Count 13.5 th/mm3 (4.0-11.0)
[2017-09-19 02:07] LABS: INR 1.2 Ratio
[2017-09-19 02:12] LABS: Activated Partial Thrombo Time 33.7 sec (24.3-30.1); Prothrombin Time 11.7 sec (9.8-11.6)
[2017-09-19 02:32] LABS: Alanine Aminotransferase 12 U/L (10-53); Albumin 1.5 g/dL (3.4-5.0); Anion Gap 8 meq/L (5-15); Aspartate Aminotransferase 26 U/L (15-37); Blood Urea Nitrogen 29 mg/dL (7-18); Calcium 7.7 mg/dL (8.5-10.1); Carbon Dioxide 23.9 meq/L (21.0-32.0); Chloride 109 meq/L (98-107); Glomerular Filtration Rate 50 mL/min (>89); Glucose,Random 92 mg/dL (74-106); Magnesium 1.8 mg/dL (1.5-2.5); Phosphorus 2.8 mg/dL (2.5-4.9); Potassium 3.9 meq/L (3.5-5.1); Sodium 141 meq/L (136-145)
[2017-09-19 02:45] LABS: Alkaline Phosphatase 326 U/L (45-117); Thyroid Stimulating Hormone 0.669 uIU/mL (0.358-3.740); Total Protein 6.9 g/dL (6.4-8.2)
[2017-09-19] MEDS ORDERED: Pharmacy Ordered Lab Info OTHER ONE (03:45)
[2017-09-19 03:53] LABS: Eosinophils 1 % (0-4); Lymphocytes 7 % (9-44); Monocytes 3 % (0-8)
[2017-09-19 03:54] LABS: Platelet Estimate Normal (Normal); Platelet Morphology Normal (Normal)
[2017-09-19 03:55] LABS: Toxic Granulation 1+; Toxic Vacuolation Present
[2017-09-19] MEDS: Vancomycin Inj 1,000 MG in Sodium Chlor 0.9% Inj 250 ML IV.SIG SCH ×2 (04:38→20:43)
[2017-09-19] MEDS: Chlorhexidine Gluconate 2% 1 Pack (2 Cloths) TOPICAL SCH (04:38)
[2017-09-19] MEDS: Insulin NovoLIN Regular Correctional Sugar Inj SQ SCH ×5 (04:38→21:22)
[2017-09-19] MEDS: Morphine Inj 4 MG/ML Vial IV.PUSH PRN ×4 (04:40→20:42)
[2017-09-19] MEDS: Dextrose 50% in Water 50 ML Vial IV.PUSH PRN (04:40)
[2017-09-19] MEDS: Insulin Detemir Inj 1,000 UNIT/10 ML Vial SQ SCH ×2 (08:23→21:22)
[2017-09-19] MEDS: Mupirocin 2% Nasal Oint Topical Syringe EACH NARE SCH ×2 (08:23→20:43)
[2017-09-19] MEDS: Pantoprazole Sodium 20 MG DR Tablet PO SCH (08:23)
[2017-09-19] MEDS: Senna/Docusate Sodium 8.6/50 MG Tablet PO SCH ×2 (08:23→20:44)
--- NOTE | 2017-09-19 09:18 | P.PNCC ---
Subjective Subjective Remarks/Hospital Course: 52-year-old female with past medical history of hepatitis C, diabetes , hypertension, ulcer of the right heel who was admitted to [facility] service on 09/17/17 when she was admitted for right foot osteomyelitis. She had recently been admitted for this complaint 08/21 and left AMA on 08/29. During that admission she had an MRI of the foot 08/24/17 it was consistent with osteomyelitis. Wound cultures were positive for MRSA and group B strep. Blood cultures 08/21 were negative. She had normal ABIs. She was treated with Abx, surgical debridement by Dr. Valentine, and wound vac. She was readmitted for worsening pain in her heel. She had severe hyperglycemia without DKA. She was treated with an insulin drip and then transition to subcut. She has been hypotensive throughout the day and has been treated with fluid resuscitation. She has a 3.5 L of fluid bolus in addition to ~ 2 Liters of MIVF and meds. She has also received 2 units PRBC for Hgb 6.4 without obvious source of bleeding. She remains hypotensive and thus [facility] has been consulted to assist with hemodynamic management. She has been evaluated by podiatry, and R BKA recommended. Awaiting vascular surgery consultation. She denies chest pain, shortness of breath, abdominal pain, nausea, vomiting, flank pain. 09/19 Patient is lying in bed in NAD. On room air oxygen. afebrile. Off Levophed. Objective Vital Signs / I&O: Vital Signs 09/18/17 10:00 09/18/17 11:00 09/18/17 12:00 Temperature 98.1 F Pulse Rate 93 H 92 H 87 Respiratory Rate 22 14 20 Blood Pressure 140/83 148/67 H 143/72 H Pulse Oximetry 98 98 99 09/18/17 13:00 09/18/17 14:00 09/18/17 15:00 Temperature Pulse Rate 89 88 87 Respiratory Rate 19 15 21 Blood Pressure 111/71 116/64 105/58 L Pulse Oximetry 99 99 96 09/18/17 15:56 09/18/17 16:00 09/18/17 17:00 Temperature 97.9 F Pulse Rate 87 97 H Respiratory Rate 14 19 Blood Pressure 105/57 L 109/64 Pulse Oximetry 96 99 95 09/18/17 17:15 09/18/17 17:19 09/18/17 18:00 Temperature Pulse Rate 97 H Respiratory Rate 23 24 12 Blood Pressure 123/78 Pulse Oximetry 95 09/18/17 19:00 09/18/17 19:56 09/18/17 20:00 Temperature 97.8 F Pulse Rate 102 H 98 H Respiratory Rate 19 12 Blood Pressure 121/67 110/67 Pulse Oximetry 96 97 96 09/18/17 21:00 09/18/17 22:00 09/18/17 23:00 Temperature Pulse Rate 97 H 104 H 100 H Respiratory Rate 18 17 12 Blood Pressure 99/69 L 122/72 126/78 Pulse Oximetry 96 98 98 09/19/17 00:00 09/19/17 00:08 09/19/17 01:00 Temperature 97.9 F 97.8 F Pulse Rate 100 H 105 H Respiratory Rate 16 16 19 Blood Pressure 111/73 118/79 Pulse Oximetry 98 96 09/19/17 02:00 09/19/17 03:00 09/19/17 04:00 Temperature 97.3 F L Pulse Rate 100 H 105 H 104 H Respiratory Rate 12 19 16 Blood Pressure 135/71 112/69 137/72 Pulse Oximetry 96 95 95 09/19/17 05:00 09/19/17 06:00 Temperature Pulse Rate 102 H 102 H Respiratory Rate 14 15 Blood Pressure 130/68 120/67 Pulse Oximetry 92 L 92 L Intake & Output 09/18/17 09/19/17 09/19/17 18:59 06:59 18:59 Intake Total 950 / 950 400 / 400 Output Total 550 / 550 475 / 475 Balance 400 / 400 -75 / -75 Intake: IV 150 / 150 250 / 250 Ofirmev Inj 1,000 mg In 100 ml 100 / 100 @ 400 mls/hr IV.SIG Q8HR [facility] Rx #:[id number] Zosyn 2.25 GM Premix 50 ML @ 50 / 50 100 mls/hr IV.SIG Q6HR [facility] Rx#: [id number] Vancomycin Inj 1,000 MG In NS 250 / 250 Inj 250 ML @ 250 mls/hr IV.SIG Q24H [facility] Rx#:[id number] Oral 800 / 800 150 / 150 Output: Urine Amount (Catheter) 550 / 550 475 / 475 Indwelling Urethral Catheter 550 / 550 475 / 475 Other: # Bowel Movements 0 Result Diagrams: 08/01/18 01:30 09/19/17 01:30 Other Results: Laboratory Results - last 12 hr 09/18/17 09/18/17 09/19/17 22:37 23:05 00:07 WBC RBC Hgb Hct MCV MCH MCHC RDW Plt Count MPV Prelim Diff (Auto) Neut % (Auto) Lymph % (Auto) [place] % (Auto) Eos % (Auto) Baso % (Auto) Neut # (Auto) Lymph # (Auto) [place] # (Auto) Eos # (Auto) Baso # (Auto) WBC Differential Seg Neuts % (Manual) Band Neuts % (Manual) Lymphocytes % (Manual) Monocytes % (Manual) Eosinophils % (Manual) Abs Neuts (Manual) Differential Comment Toxic Granulation Toxic Vacuolation Platelet Estimate Platelet Morphology Basophilic Stippling PT INR APTT Sodium Potassium Chloride Carbon Dioxide Anion Gap BUN Creatinine Estimated GFR POC Glucose 65 L 114 H 115 H Random Glucose Lactic Acid Calcium Phosphorus Magnesium Total Bilirubin AST ALT Alkaline Phosphatase Ammonia Total Protein Albumin TSH 09/19/17 09/19/17 09/19/17 01:30 01:30 01:30 WBC 13.5 H RBC 3.58 L Hgb 10.5 L Hct 30.7 L MCV 85.8 MCH 29.4 MCHC 34.3 RDW 14.7 Plt Count 198 MPV 10.0 Prelim Diff (Auto) Slide review pending Neut % (Auto) 82.3 H Lymph % (Auto) 12.4 [place] % (Auto) 3.9 Eos % (Auto) 0.8 Baso % (Auto) 0.6 Neut # (Auto) 11.1 H Lymph # (Auto) 1.7 [place] # (Auto) 0.5 Eos # (Auto) 0.1 Baso # (Auto) 0.1 WBC Differential Manual diff final Seg Neuts % (Manual) 80 H Band Neuts % (Manual) 9 H Lymphocytes % (Manual) 7 L Monocytes % (Manual) 3 Eosinophils % (Manual) 1 Abs Neuts (Manual) 12.0 H Differential Comment . Toxic Granulation 1+ H Toxic Vacuolation Present H Platelet Estimate Normal Platelet Morphology Normal Basophilic Stippling Faint H PT 11.7 H INR 1.2 APTT 33.7 H Sodium 141 Potassium 3.9 Chloride 109 H Carbon Dioxide 23.9 Anion Gap 8 BUN 29 H Creatinine 1.13 H Estimated GFR 50 L POC Glucose Random Glucose 92 Lactic Acid Calcium 7.7 L Phosphorus 2.8 Magnesium 1.8 Total Bilirubin 1.4 H AST 26 ALT 12 Alkaline Phosphatase 326 H Ammonia Total Protein 6.9 Albumin 1.5 L TSH 0.669 09/19/17 09/19/17 09/19/17 01:30 01:30 04:28 WBC RBC Hgb Hct MCV MCH MCHC RDW Plt Count MPV Prelim Diff (Auto) Neut % (Auto) Lymph % (Auto) [place] % (Auto) Eos % (Auto) Baso % (Auto) Neut # (Auto) Lymph # (Auto) [place] # (Auto) Eos # (Auto) Baso # (Auto) WBC Differential Seg Neuts % (Manual) Band Neuts % (Manual) Lymphocytes % (Manual) Monocytes % (Manual) Eosinophils % (Manual) Abs Neuts (Manual) Differential Comment Toxic Granulation Toxic Vacuolation Platelet Estimate Platelet Morphology Basophilic Stippling PT INR APTT Sodium Potassium Chloride Carbon Dioxide Anion Gap BUN Creatinine Estimated GFR POC Glucose 70 Random Glucose Lactic Acid 1.2 Calcium Phosphorus Magnesium Total Bilirubin AST ALT Alkaline Phosphatase Ammonia Less than 10 L Total Protein Albumin TSH 09/19/17 07:34 WBC RBC Hgb Hct MCV MCH MCHC RDW Plt Count MPV Prelim Diff (Auto) Neut % (Auto) Lymph % (Auto) [place] % (Auto) Eos % (Auto) Baso % (Auto) Neut # (Auto) Lymph # (Auto) [place] # (Auto) Eos # (Auto) Baso # (Auto) WBC Differential Seg Neuts % (Manual) Band Neuts % (Manual) Lymphocytes % (Manual) Monocytes % (Manual) Eosinophils % (Manual) Abs Neuts (Manual) Differential Comment Toxic Granulation Toxic Vacuolation Platelet Estimate Platelet Morphology Basophilic Stippling PT INR APTT Sodium Potassium Chloride Carbon Dioxide Anion Gap BUN Creatinine Estimated GFR POC Glucose 125 H Random Glucose Lactic Acid Calcium Phosphorus Magnesium Total Bilirubin AST ALT Alkaline Phosphatase Ammonia Total Protein Albumin TSH Imaging: Foot X-Ray 09/17/17 02:18 CONCLUSION: 1. Fracture deformity of the calcaneus with large overlying soft tissue defect which extends into the fracture. Chest X-Ray 09/18/17 00:35 CONCLUSION: 1. Interval placement of right internal jugular central venous line with no pneumothorax. 2. No acute cardiopulmonary disease. Objective Remarks: GENERAL: Patient is 52 yo lying in bed in NAD SKIN: Warm and dry. HEAD: Normocephalic. EYES: No scleral icterus. No injection or drainage. NECK: Supple, trachea midline. No JVD or lymphadenopathy. CARDIOVASCULAR: Regular rate and rhythm without murmurs, gallops, or rubs. RESPIRATORY: Breath sounds equal bilaterally. No accessory muscle use. GASTROINTESTINAL: Abdomen soft, non-tender, nondistended. MUSCULOSKELETAL: No cyanosis, right foot wrapped. Neuro: awake and alert. Assessment and Plan - Problem List (1) Septic shock Code(s): A41.9 - Sepsis, unspecified organism; R65.21 - Severe sepsis with septic shock Status: Acute (2) Hyperglycemia Code(s): R73.9 - Hyperglycemia, unspecified Status: Acute (3) Acute osteomyelitis of right calcaneus Code(s): M86.171 - Other acute osteomyelitis, right ankle and foot Status: Acute (4) DM (diabetes mellitus) Code(s): E11.9 - Type 2 diabetes mellitus without complications Status: Acute - Assessment and Plan Plan: NEURO: Pain secondary to R foot osteomyelitis Awake and alert On Ofirmev and morphine as needed for pain. RESP: Prior tobacco abuse Oxygen PRN keep sats >92% CV: Septic shock- Resolved Off Levophed monitor HR and BP keep MAP>65mmHg Continue 0.9 NaCl at 100 mL/h. Lactic acid: 1.2 GI: Diabetic diet FEN/RENAL: MARIO- improving Monitor renal function, I/O's, electrolytes replacement as needed. Renal function is improving with Cr: 1.13 from 1.48 Continue IVF NS@100ml/hr ID: Septic shock Right foot osteomyelitis Continue vancomycin and Zosyn. ID is following Monitor for signs of infections ( Fever, WBC) WBC is trending down Podiatry and vascular surgery ( Dr. Lockett) are following recommended right BKA possible on Check BC x 2 sets BC 09/18 02/22 bottles GPC HEME: Monitor CBC ENDO: Diabetes mellitus Detemir 20 units subcu twice daily. Monitor bedside glucose every 4 hours and administer medium dose sliding scale as indicated. PROPH: Famotidine p.o. for stress ulcer prophylaxis not on chemical AC prophylaxis due to anemia and concern for bleeding , patient for possible OR tomorrow for right BKA ACCESS: Right IJ central venous line placed 09/18 Full code Level 2
--- NOTE | 2017-09-19 09:51 | P.PNVS ---
Subjective Subjective/Hospital Course: 51-year-old female with diabetes mellitus and a huge necrotic ulcer of the left heel and necrosis of the left midfoot with exposed bone and osteomyelitis At this point there are no other options available then below-knee amputation and will go ahead with the same on Full consult dictated Thanks J 09/19/2017 Patient with peripheral vascular disease and gangrene of the right foot and non- salvageable lower leg for below-knee amputation tomorrow Second opinion rendered by Dr. York. We will do CTA with a runoff to evaluate for any other vascular occlusive disease that might jeopardize either the BKA or the other leg in the future. Based on clinical exam I do not believe the patient has any inflow occlusive disease and popliteal vessels are clearly patent Patient has dorsalis pedis and posterior tibial arteries bilateral and I do not believe she has a significant degree of outflow disease either. Majority of diseases is likely in patient's foot and small vessels. Patient scheduled to undergo tomorrow right below-knee amputation was depending on the appearance of the tissues might be carried out in 2 stages first is a guillotine amputation and second stage closure or in 1 stage if tissues appear to be adequate. Objective Vital Signs / I&O: Vital Signs 09/18/17 10:00 09/18/17 11:00 09/18/17 12:00 Temperature 98.1 F Pulse Rate 93 H 92 H 87 Respiratory Rate 22 14 20 Blood Pressure 140/83 148/67 H 143/72 H Pulse Oximetry 98 98 99 09/18/17 13:00 09/18/17 14:00 09/18/17 15:00 Temperature Pulse Rate 89 88 87 Respiratory Rate 19 15 21 Blood Pressure 111/71 116/64 105/58 L Pulse Oximetry 99 99 96 09/18/17 15:56 09/18/17 16:00 09/18/17 17:00 Temperature 97.9 F Pulse Rate 87 97 H Respiratory Rate 14 19 Blood Pressure 105/57 L 109/64 Pulse Oximetry 96 99 95 09/18/17 17:15 09/18/17 17:19 09/18/17 18:00 Temperature Pulse Rate 97 H Respiratory Rate 23 24 12 Blood Pressure 123/78 Pulse Oximetry 95 09/18/17 19:00 09/18/17 19:56 09/18/17 20:00 Temperature 97.8 F Pulse Rate 102 H 98 H Respiratory Rate 19 12 Blood Pressure 121/67 110/67 Pulse Oximetry 96 97 96 09/18/17 21:00 09/18/17 22:00 09/18/17 23:00 Temperature Pulse Rate 97 H 104 H 100 H Respiratory Rate 18 17 12 Blood Pressure 99/69 L 122/72 126/78 Pulse Oximetry 96 98 98 09/19/17 00:00 09/19/17 00:08 09/19/17 01:00 Temperature 97.9 F 97.8 F Pulse Rate 100 H 105 H Respiratory Rate 16 16 19 Blood Pressure 111/73 118/79 Pulse Oximetry 98 96 09/19/17 02:00 09/19/17 03:00 09/19/17 04:00 Temperature 97.3 F L Pulse Rate 100 H 105 H 104 H Respiratory Rate 12 19 16 Blood Pressure 135/71 112/69 137/72 Pulse Oximetry 96 95 95 09/19/17 05:00 09/19/17 06:00 Temperature Pulse Rate 102 H 102 H Respiratory Rate 14 15 Blood Pressure 130/68 120/67 Pulse Oximetry 92 L 92 L Intake & Output 09/18/17 09/19/17 09/19/17 18:59 06:59 18:59 Intake Total 950 / 950 400 / 400 Output Total 550 / 550 475 / 475 Balance 400 / 400 -75 / -75 Intake: IV 150 / 150 250 / 250 Ofirmev Inj 1,000 mg In 100 ml 100 / 100 @ 400 mls/hr IV.SIG Q8HR RICARDO Rx #:[id number] Zosyn 2.25 GM Premix 50 ML @ 50 / 50 100 mls/hr IV.SIG Q6HR RICARDO Rx#: [id number] Vancomycin Inj 1,000 MG In NS 250 / 250 Inj 250 ML @ 250 mls/hr IV.SIG Q24H RICARDO Rx#:[id number] Oral 800 / 800 150 / 150 Output: Urine Amount (Catheter) 550 / 550 475 / 475 Indwelling Urethral Catheter 550 / 550 475 / 475 Other: # Bowel Movements 0 Laboratory Results - last 24 hr 09/18/17 09/18/17 09/18/17 09:45 09:45 12:00 WBC RBC Hgb Hct MCV MCH MCHC RDW Plt Count MPV Prelim Diff (Auto) Neut % (Auto) Lymph % (Auto) [place] % (Auto) Eos % (Auto) Baso % (Auto) Neut # (Auto) Lymph # (Auto) [place] # (Auto) Eos # (Auto) Baso # (Auto) WBC Differential Seg Neuts % (Manual) Band Neuts % (Manual) Lymphocytes % (Manual) Monocytes % (Manual) Eosinophils % (Manual) Abs Neuts (Manual) Differential Comment Toxic Granulation Toxic Vacuolation Platelet Estimate Platelet Morphology Basophilic Stippling PT INR APTT Sodium Potassium Chloride Carbon Dioxide Anion Gap BUN Creatinine Estimated GFR POC Glucose Random Glucose Lactic Acid Calcium Phosphorus Magnesium Total Bilirubin AST ALT Alkaline Phosphatase Ammonia Total Creatine Kinase 39 Total Protein Albumin TSH Urine Color Anh Urine Clarity Cloudy H Urine pH 5.0 Ur Specific [place] 1.018 Urine Protein 30 H Urine Glucose (UA) Negative Urine Ketones Negative Urine Occult Blood Moderate H Urine Nitrate Negative Urine Bilirubin Negative Urine Urobilinogen 4 or greater Ur Leukocyte Esterase Moderate H Urine RBC 9 H Urine WBC 61 H Urine WBC Clumps Rare H Urine Bacteria Rare H Urine Yeast Many H Micro UA Comment Cath-culture ind Urine Culture Comments Cath-cult indicated Urine Eosinophils None seen 09/18/17 09/18/17 09/18/17 12:31 16:47 20:31 WBC RBC Hgb Hct MCV MCH MCHC RDW Plt Count MPV Prelim Diff (Auto) Neut % (Auto) Lymph % (Auto) [place] % (Auto) Eos % (Auto) Baso % (Auto) Neut # (Auto) Lymph # (Auto) [place] # (Auto) Eos # (Auto) Baso # (Auto) WBC Differential Seg Neuts % (Manual) Band Neuts % (Manual) Lymphocytes % (Manual) Monocytes % (Manual) Eosinophils % (Manual) Abs Neuts (Manual) Differential Comment Toxic Granulation Toxic Vacuolation Platelet Estimate Platelet Morphology Basophilic Stippling PT INR APTT Sodium Potassium Chloride Carbon Dioxide Anion Gap BUN Creatinine Estimated GFR POC Glucose 87 84 58 L Random Glucose Lactic Acid Calcium Phosphorus Magnesium Total Bilirubin AST ALT Alkaline Phosphatase Ammonia Total Creatine Kinase Total Protein Albumin TSH Urine Color Urine Clarity Urine pH Ur Specific [place] Urine Protein Urine Glucose (UA) Urine Ketones Urine Occult Blood Urine Nitrate Urine Bilirubin Urine Urobilinogen Ur Leukocyte Esterase Urine RBC Urine WBC Urine WBC Clumps Urine Bacteria Urine Yeast Micro UA Comment Urine Culture Comments Urine Eosinophils 09/18/17 09/18/17 09/19/17 22:37 23:05 00:07 WBC RBC Hgb Hct MCV MCH MCHC RDW Plt Count MPV Prelim Diff (Auto) Neut % (Auto) Lymph % (Auto) [place] % (Auto) Eos % (Auto) Baso % (Auto) Neut # (Auto) Lymph # (Auto) [place] # (Auto) Eos # (Auto) Baso # (Auto) WBC Differential Seg Neuts % (Manual) Band Neuts % (Manual) Lymphocytes % (Manual) Monocytes % (Manual) Eosinophils % (Manual) Abs Neuts (Manual) Differential Comment Toxic Granulation Toxic Vacuolation Platelet Estimate Platelet Morphology Basophilic Stippling PT INR APTT Sodium Potassium Chloride Carbon Dioxide Anion Gap BUN Creatinine Estimated GFR POC Glucose 65 L 114 H 115 H Random Glucose Lactic Acid Calcium Phosphorus Magnesium Total Bilirubin AST ALT Alkaline Phosphatase Ammonia Total Creatine Kinase Total Protein Albumin TSH Urine Color Urine Clarity Urine pH Ur Specific [place] Urine Protein Urine Glucose (UA) Urine Ketones Urine Occult Blood Urine Nitrate Urine Bilirubin Urine Urobilinogen Ur Leukocyte Esterase Urine RBC Urine WBC Urine WBC Clumps Urine Bacteria Urine Yeast Micro UA Comment Urine Culture Comments Urine Eosinophils 09/19/17 09/19/17 09/19/17 01:30 01:30 01:30 WBC 13.5 H RBC 3.58 L Hgb 10.5 L Hct 30.7 L MCV 85.8 MCH 29.4 MCHC 34.3 RDW 14.7 Plt Count 198 MPV 10.0 Prelim Diff (Auto) Slide review pending Neut % (Auto) 82.3 H Lymph % (Auto) 12.4 [place] % (Auto) 3.9 Eos % (Auto) 0.8 Baso % (Auto) 0.6 Neut # (Auto) 11.1 H Lymph # (Auto) 1.7 [place] # (Auto) 0.5 Eos # (Auto) 0.1 Baso # (Auto) 0.1 WBC Differential Manual diff final Seg Neuts % (Manual) 80 H Band Neuts % (Manual) 9 H Lymphocytes % (Manual) 7 L Monocytes % (Manual) 3 Eosinophils % (Manual) 1 Abs Neuts (Manual) 12.0 H Differential Comment . Toxic Granulation 1+ H Toxic Vacuolation Present H Platelet Estimate Normal Platelet Morphology Normal Basophilic Stippling Faint H PT 11.7 H INR 1.2 APTT 33.7 H Sodium 141 Potassium 3.9 Chloride 109 H Carbon Dioxide 23.9 Anion Gap 8 BUN 29 H Creatinine 1.13 H Estimated GFR 50 L POC Glucose Random Glucose 92 Lactic Acid Calcium 7.7 L Phosphorus 2.8 Magnesium 1.8 Total Bilirubin 1.4 H AST 26 ALT 12 Alkaline Phosphatase 326 H Ammonia Total Creatine Kinase Total Protein 6.9 Albumin 1.5 L TSH 0.669 Urine Color Urine Clarity Urine pH Ur Specific [place] Urine Protein Urine Glucose (UA) Urine Ketones Urine Occult Blood Urine Nitrate Urine Bilirubin Urine Urobilinogen Ur Leukocyte Esterase Urine RBC Urine WBC Urine WBC Clumps Urine Bacteria Urine Yeast Micro UA Comment Urine Culture Comments Urine Eosinophils 09/19/17 09/19/17 09/19/17 01:30 01:30 04:28 WBC RBC Hgb Hct MCV MCH MCHC RDW Plt Count MPV Prelim Diff (Auto) Neut % (Auto) Lymph % (Auto) [place] % (Auto) Eos % (Auto) Baso % (Auto) Neut # (Auto) Lymph # (Auto) [place] # (Auto) Eos # (Auto) Baso # (Auto) WBC Differential Seg Neuts % (Manual) Band Neuts % (Manual) Lymphocytes % (Manual) Monocytes % (Manual) Eosinophils % (Manual) Abs Neuts (Manual) Differential Comment Toxic Granulation Toxic Vacuolation Platelet Estimate Platelet Morphology Basophilic Stippling PT INR APTT Sodium Potassium Chloride Carbon Dioxide Anion Gap BUN Creatinine Estimated GFR POC Glucose 70 Random Glucose Lactic Acid 1.2 Calcium Phosphorus Magnesium Total Bilirubin AST ALT Alkaline Phosphatase Ammonia Less than 10 L Total Creatine Kinase Total Protein Albumin TSH Urine Color Urine Clarity Urine pH Ur Specific [place] Urine Protein Urine Glucose (UA) Urine Ketones Urine Occult Blood Urine Nitrate Urine Bilirubin Urine Urobilinogen Ur Leukocyte Esterase Urine RBC Urine WBC Urine WBC Clumps Urine Bacteria Urine Yeast Micro UA Comment Urine Culture Comments Urine Eosinophils 09/19/17 07:34 WBC RBC Hgb Hct MCV MCH MCHC RDW Plt Count MPV Prelim Diff (Auto) Neut % (Auto) Lymph % (Auto) [place] % (Auto) Eos % (Auto) Baso % (Auto) Neut # (Auto) Lymph # (Auto) [place] # (Auto) Eos # (Auto) Baso # (Auto) WBC Differential Seg Neuts % (Manual) Band Neuts % (Manual) Lymphocytes % (Manual) Monocytes % (Manual) Eosinophils % (Manual) Abs Neuts (Manual) Differential Comment Toxic Granulation Toxic Vacuolation Platelet Estimate Platelet Morphology Basophilic Stippling PT INR APTT Sodium Potassium Chloride Carbon Dioxide Anion Gap BUN Creatinine Estimated GFR POC Glucose 125 H Random Glucose Lactic Acid Calcium Phosphorus Magnesium Total Bilirubin AST ALT Alkaline Phosphatase Ammonia Total Creatine Kinase Total Protein Albumin TSH Urine Color Urine Clarity Urine pH Ur Specific [place] Urine Protein Urine Glucose (UA) Urine Ketones Urine Occult Blood Urine Nitrate Urine Bilirubin Urine Urobilinogen Ur Leukocyte Esterase Urine RBC Urine WBC Urine WBC Clumps Urine Bacteria Urine Yeast Micro UA Comment Urine Culture Comments Urine Eosinophils Microbiology 09/18/17 06:56 Aerobic Blood Culture - Preliminary Blood - Peripheral Group B beta Strep Impressions Chest X-Ray 09/18/17 00:35 CONCLUSION: 1. Interval placement of right internal jugular central venous line with no pneumothorax. 2. No acute cardiopulmonary disease.
[2017-09-19] MEDS ORDERED: Gadobutrol PF 7.5 MMOL/7.5 ML Vial (for RAD) IV.SIG ONE (10:47)
--- NOTE | 2017-09-19 12:02 | MR ---
EXAM DATE: 09/19/2017 11:19 AM EDT AGE/SEX: 52 years / Female INDICATIONS: . Open wound on right heel. CLINICAL DATA: This is the patient's subsequent encounter. Patient reports that signs and symptoms h ave been present for 1 month and indicates a pain score of 7/10. MEDICAL/SURGICAL HISTORY: Hypertension. Hepatitis C. Diabetes mellitus type II. sect ion. COMPARISON: [facility], FOOT COMPLETE RIGHT 3V, 09/17/2017. [facility], MR FOOT RIGHT W & W/O CONTRAST, 018. . TECHNIQUE: Multiplanar, multisequence MRI examination was performed without contrast and after th e intravenous administration of 7.5 ml Gadavist (gadobutrol) single exam dose. FINDINGS: Large soft tissue defect again seen of the heel. There is a large destructive process of the plantar aspect of the calcaneal tubercle and body and a pathologic fracture has developed which extends into the subtalar joint at the sinus Tarsi. Gas seen in the soft tissues and also the fracture cleft and e xtending into the sinus Tarsi and subtalar joint as well. There appears to be a few bubbles of gas wi thin the midportion of the talus but no convincing talar osteomyelitis. Other than a couple centimete rs of the far anterior portions of the calcaneus, there are signal changes within most of the remaind er of the bone typical of osteomyelitis. Most fibers of the plantar facet and distal Achilles remain intact. CONCLUSION: Nearly all of the calcaneus is involved by osteomyelitis. A large fracture cleft has deve loped as above. There is gas in the soft tissues, fracture cleft, subtalar joint and focally in the t alus adjacent to the sinus Tarsi. No definite talar osteomyelitis. Electronically signed by: Derek Cash MD 09/19/2017 11:58 AM EDT
--- NOTE | 2017-09-19 12:31 | P.PNID ---
Subjective Remarks: Patient notes that she has pain 10/10 scale. No other complaints. Afebrile. Blood culture has Group B strep. WBC still elevated. Off Levophed. MRI noted. This is a 52-year-old white female who was admitted to the hospital after she presented with pain in her right foot. The patient was in the hospital between 08/21 and 08/29 and was being treated for diabetic foot ulcer with MRSA infection of the right foot. She states that the problem began approximately 2 weeks prior, and she was seen by the office copy selector and had debridement and worsened. She left the hospital against medical advice on 08/29/2017. She states that she had to get back to work because she needed the money to pay her rent. However, she was unable to work and eventually presented to the emergency department because of worsening of the wound with swelling and redness of the foot. Her white blood cell count was 20.5 in the emergency department with 17% bands, and she had an abnormal urinalysis. Her heart rate was 121 and temperature was 99.1 on admission. Her blood sugar was greater than 600. The patient is currently receiving Levophed. She is awake and alert. X-ray of the foot shows fracture deformity of the calcaneus with a large overlying soft tissue defect extending into the fracture. Lines: peripheral line without evidence of infection. Past Medical History: PAST MEDICAL HISTORY: Diabetes mellitus, hypertension, hepatitis C, and diabetic neuropathy. Allergies/Adverse Reactions: Allergies No Known Allergies Allergy (Unverified 08/02/17 06:11) Objective Vital Signs 09/18/17 13:00 09/18/17 14:00 09/18/17 15:00 Temperature Pulse Rate 89 88 87 Respiratory Rate 19 15 21 Blood Pressure 111/71 116/64 105/58 L Pulse Oximetry 99 99 96 09/18/17 15:56 09/18/17 16:00 09/18/17 17:00 Temperature 97.9 F Pulse Rate 87 97 H Respiratory Rate 14 19 Blood Pressure 105/57 L 109/64 Pulse Oximetry 96 99 95 09/18/17 17:15 09/18/17 17:19 09/18/17 18:00 Temperature Pulse Rate 97 H Respiratory Rate 23 24 12 Blood Pressure 123/78 Pulse Oximetry 95 09/18/17 19:00 09/18/17 19:56 09/18/17 20:00 Temperature 97.8 F Pulse Rate 102 H 98 H Respiratory Rate 19 12 Blood Pressure 121/67 110/67 Pulse Oximetry 96 97 96 09/18/17 21:00 09/18/17 21:30 09/18/17 22:00 Temperature Pulse Rate 97 H 100 H 104 H Respiratory Rate 18 11 L 17 Blood Pressure 99/69 L 105/72 122/72 Pulse Oximetry 96 98 98 09/18/17 22:30 09/18/17 23:00 09/18/17 23:30 Temperature Pulse Rate 100 H 100 H 98 H Respiratory Rate 13 12 11 L Blood Pressure 123/69 126/78 115/72 Pulse Oximetry 97 98 96 09/19/17 00:00 09/19/17 00:08 09/19/17 00:30 Temperature 97.9 F Pulse Rate 100 H 97 H Respiratory Rate 13 16 10 L Blood Pressure 111/73 126/72 Pulse Oximetry 96 97 09/19/17 01:00 09/19/17 01:30 09/19/17 02:00 Temperature 97.8 F Pulse Rate 105 H 101 H 100 H Respiratory Rate 19 40 H 12 Blood Pressure 118/79 124/76 135/71 Pulse Oximetry 96 95 96 09/19/17 02:01 09/19/17 02:30 09/19/17 03:00 Temperature Pulse Rate 100 H 102 H 105 H Respiratory Rate 12 13 19 Blood Pressure 135/71 121/71 112/69 Pulse Oximetry 95 94 L 95 09/19/17 03:01 09/19/17 03:30 09/19/17 04:00 Temperature 97.3 F L Pulse Rate 106 H 101 H 104 H Respiratory Rate 18 13 17 Blood Pressure 112/69 135/73 137/72 Pulse Oximetry 96 95 95 09/19/17 04:30 09/19/17 05:00 09/19/17 05:30 Temperature Pulse Rate 106 H 102 H 102 H Respiratory Rate 19 14 12 Blood Pressure 131/75 130/68 126/64 Pulse Oximetry 92 L 92 L 93 L 09/19/17 06:00 09/19/17 06:30 09/19/17 07:00 Temperature Pulse Rate 102 H 102 H 102 H Respiratory Rate 15 15 15 Blood Pressure 120/67 114/63 118/70 Pulse Oximetry 92 L 91 L 92 L 09/19/17 07:30 09/19/17 08:00 09/19/17 08:30 Temperature 98.6 F Pulse Rate 101 H 101 H 104 H Respiratory Rate 14 15 17 Blood Pressure 118/67 119/66 127/69 Pulse Oximetry 92 L 92 L 91 L 09/19/17 09:00 09/19/17 10:39 Temperature Pulse Rate 102 H Respiratory Rate 22 Blood Pressure 134/74 Pulse Oximetry 91 L 91 L Intake & Output 09/18/17 09/19/17 09/19/17 18:59 06:59 18:59 Intake Total 950 / 950 400 / 400 Output Total 550 / 550 475 / 475 Balance 400 / 400 -75 / -75 Intake: IV 150 / 150 250 / 250 Ofirmev Inj 1,000 mg In 100 ml 100 / 100 @ 400 mls/hr IV.SIG Q8HR RICARDO Rx #:[id number] Zosyn 2.25 GM Premix 50 ML @ 50 / 50 100 mls/hr IV.SIG Q6HR RICARDO Rx#: [id number] Vancomycin Inj 1,000 MG In NS 250 / 250 Inj 250 ML @ 250 mls/hr IV.SIG Q24H RICARDO Rx#:[id number] Oral 800 / 800 150 / 150 Output: Urine Amount (Catheter) 550 / 550 475 / 475 Indwelling Urethral Catheter 550 / 550 475 / 475 Other: # Bowel Movements 0 09/18/17 06:56 Blood - Peripheral Aerobic Blood Culture - Preliminary Group B beta Strep 09/18/17 06:56 Blood - Peripheral Anaerobic Blood Culture - Preliminary No growth in 1 day 09/18/17 04:05 Blood - Peripheral Aerobic Blood Culture - Preliminary No growth in 1 day 09/18/17 04:05 Blood - Peripheral Anaerobic Blood Culture - Preliminary No growth in 1 day 09/18/17 09:45 Catheterized Urine Urine Culture - Pending Lab - Hematology Results 09/17/17 09/18/17 09/18/17 13:15 01:21 05:00 WBC 13.9 H 18.9 H 18.5 H RBC 2.26 L 3.63 L 3.55 L Hgb 6.4 L* D 10.4 L D 10.3 L Hct 22.2 L 31.5 L 30.9 L MCV 98.0 D 86.8 D 87.1 MCH 28.3 28.6 29.0 MCHC 28.9 L 32.9 33.3 RDW 15.2 14.2 14.4 Plt Count 165 218 D 228 MPV 10.8 10.1 10.0 Prelim Diff (Auto) Slide review pending Neut % (Auto) 78.2 H 84.6 H Lymph % (Auto) 14.8 9.6 Gladwin % (Auto) 6.2 4.9 Eos % (Auto) 0.3 0.7 Baso % (Auto) 0.5 0.2 Neut # (Auto) 10.9 H 15.7 H Lymph # (Auto) 2.1 1.8 Gladwin # (Auto) 0.9 0.9 Eos # (Auto) 0.0 0.1 Baso # (Auto) 0.1 0.0 WBC Differential Manual diff final . Seg Neuts % (Manual) 72 H Band Neuts % (Manual) 13 H Lymphocytes % (Manual) 12 Monocytes % (Manual) 3 Eosinophils % (Manual) Abs Neuts (Manual) 11.8 H Differential Comment . Auto diff final Toxic Granulation 1+ H Toxic Vacuolation Present H Platelet Estimate Normal Platelet Morphology Normal Basophilic Stippling Baldwin Cells 1+ H 09/19/17 01:30 WBC 13.5 H RBC 3.58 L Hgb 10.5 L Hct 30.7 L MCV 85.8 MCH 29.4 MCHC 34.3 RDW 14.7 Plt Count 198 MPV 10.0 Prelim Diff (Auto) Slide review pending Neut % (Auto) 82.3 H Lymph % (Auto) 12.4 Gladwin % (Auto) 3.9 Eos % (Auto) 0.8 Baso % (Auto) 0.6 Neut # (Auto) 11.1 H Lymph # (Auto) 1.7 Gladwin # (Auto) 0.5 Eos # (Auto) 0.1 Baso # (Auto) 0.1 WBC Differential Manual diff final Seg Neuts % (Manual) 80 H Band Neuts % (Manual) 9 H Lymphocytes % (Manual) 7 L Monocytes % (Manual) 3 Eosinophils % (Manual) 1 Abs Neuts (Manual) 12.0 H Differential Comment . Toxic Granulation 1+ H Toxic Vacuolation Present H Platelet Estimate Normal Platelet Morphology Normal Basophilic Stippling Faint H Tariq Cells Lab - Chemistry Results 09/17/17 09/17/17 09/17/17 12:37 13:15 13:17 Sodium Cancelled Potassium Cancelled Chloride Cancelled Carbon Dioxide Cancelled Anion Gap Cancelled BUN Cancelled Creatinine Cancelled Estimated GFR Cancelled POC Glucose 134 H 101 Random Glucose Cancelled Lactic Acid Calcium Cancelled Prot Corrected Calcium Phosphorus Magnesium Cancelled Total Bilirubin AST ALT Alkaline Phosphatase Ammonia Total Creatine Kinase Total Protein Albumin [facility] 09/17/17 09/17/17 09/17/17 13:51 14:33 17:26 Sodium Potassium Chloride Carbon Dioxide Anion Gap BUN Creatinine Estimated GFR POC Glucose 128 H 113 H 127 H Random Glucose Lactic Acid Calcium Prot Corrected Calcium Phosphorus Magnesium Total Bilirubin AST ALT Alkaline Phosphatase Ammonia Total Creatine Kinase Total Protein Albumin [facility] 09/17/17 09/17/17 09/18/17 17:42 22:24 01:21 Sodium 136 D 138 Potassium 4.0 3.5 Chloride 107 D 106 Carbon Dioxide 23.4 25.4 Anion Gap 6 7 BUN 33 H 36 H Creatinine 1.48 H 1.72 H Estimated GFR 37 L 31 L POC Glucose 305 H Random Glucose 96 D 201 H D Lactic Acid Calcium 7.4 L* 7.0 L* Prot Corrected Calcium 7.4 L* 7.2 L* Phosphorus 2.4 L Magnesium 1.9 1.8 Total Bilirubin 0.5 AST 13 L ALT 11 Alkaline Phosphatase 164 H Ammonia Total Creatine Kinase Total Protein 7.3 6.8 Albumin 1.7 L [facility] 09/18/17 09/18/17 09/18/17 01:21 04:21 05:00 Sodium 139 Potassium 3.5 Chloride 108 H Carbon Dioxide 24.6 Anion Gap 6 BUN 33 H Creatinine 1.49 H Estimated GFR 37 L POC Glucose 129 H Random Glucose 126 H Lactic Acid 2.0 Calcium 7.8 L D Prot Corrected Calcium Phosphorus Magnesium Total Bilirubin 1.9 H AST 11 L ALT 9 L Alkaline Phosphatase 176 H Ammonia Total Creatine Kinase Total Protein 6.9 Albumin 1.6 L [facility] 09/18/17 09/18/17 09/18/17 05:00 08:03 12:00 Sodium 139 Potassium 3.5 Chloride 108 H Carbon Dioxide 25.1 Anion Gap 6 BUN 36 H Creatinine 1.48 H Estimated GFR 37 L POC Glucose 103 Random Glucose 130 H Lactic Acid Calcium 7.7 L Prot Corrected Calcium Phosphorus Magnesium 1.9 Total Bilirubin AST ALT Alkaline Phosphatase Ammonia Total Creatine Kinase 39 Total Protein Albumin [facility] 09/18/17 09/18/17 09/18/17 12:31 16:47 20:31 Sodium Potassium Chloride Carbon Dioxide Anion Gap BUN Creatinine Estimated GFR POC Glucose 87 84 58 L Random Glucose Lactic Acid Calcium Prot Corrected Calcium Phosphorus Magnesium Total Bilirubin AST ALT Alkaline Phosphatase Ammonia Total Creatine Kinase Total Protein Albumin TSH 09/18/17 09/18/17 09/19/17 22:37 23:05 00:07 Sodium Potassium Chloride Carbon Dioxide Anion Gap BUN Creatinine Estimated GFR POC Glucose 65 L 114 H 115 H Random Glucose Lactic Acid Calcium Prot Corrected Calcium Phosphorus Magnesium Total Bilirubin AST ALT Alkaline Phosphatase Ammonia Total Creatine Kinase Total Protein Albumin TSH 09/19/17 09/19/17 09/19/17 01:30 01:30 01:30 Sodium 141 Potassium 3.9 Chloride 109 H Carbon Dioxide 23.9 Anion Gap 8 BUN 29 H Creatinine 1.13 H Estimated GFR 50 L POC Glucose Random Glucose 92 Lactic Acid 1.2 Calcium 7.7 L Prot Corrected Calcium Phosphorus 2.8 Magnesium 1.8 Total Bilirubin 1.4 H AST 26 ALT 12 Alkaline Phosphatase 326 H Ammonia Less than 10 L Total Creatine Kinase Total Protein 6.9 Albumin 1.5 L TSH 0.669 09/19/17 09/19/17 09/19/17 04:28 07:34 12:03 Sodium Potassium Chloride Carbon Dioxide Anion Gap BUN Creatinine Estimated GFR POC Glucose 70 125 H 146 H Random Glucose Lactic Acid Calcium Prot Corrected Calcium Phosphorus Magnesium Total Bilirubin AST ALT Alkaline Phosphatase Ammonia Total Creatine Kinase Total Protein Albumin TSH Imaging: ITS Impressions Foot X-Ray 09/17/17 02:18 CONCLUSION: 1. Fracture deformity of the calcaneus with large overlying soft tissue defect which extends into the fracture. Chest X-Ray 09/18/17 00:35 CONCLUSION: 1. Interval placement of right internal jugular central venous line with no pneumothorax. 2. No acute cardiopulmonary disease. Foot MRI 09/19/17 00:00 CONCLUSION: Nearly all of the calcaneus is involved by osteomyelitis. A large fracture cleft has developed as above. There is gas in the soft tissues, fracture cleft, subtalar joint and focally in the talus adjacent to the sinus Tarsi. No definite talar osteomyelitis. Physical Exam: PHYSICAL EXAMINATION: GENERAL: No acute distress. She is awake and alert and oriented. HEENT: The head is atraumatic. Extraocular movements are grossly intact. Pupils reactive to light. No icterus. Oropharynx: Moist mucosa. No visible lesions. NECK: Supple without adenopathy or swelling. LUNGS: Clear to auscultation. HEART: Regular S1 and S2. No murmurs heard. ABDOMEN: Bowel sounds present. Soft and nontender. EXTREMITIES: The right leg is swollen and erythematous from the dorsum of the foot, to the ankle which has 3+ edema. 2+ edema to the knee. The entire dorsum of the foot on the plantar aspect of the foot is red and there is an ulceration at the plantar aspect of the foot, which has foul smelling, purulent, bloody drainage. Sensation is absent at both feet. SKIN: Otherwise has no diffuse rash. NEUROLOGIC: Non focal. PSYCHIATRIC: Calm and cooperative. Assessment and Plan - Plan ASSESSMENT: 1. 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 2. Diabetic foot infection due to methicillin-resistant Staphylococcus aureus. 3. Sepsis indicated by tachycardia and elevated respiratory rate along with increased white blood cell count and abnormal urinalysis and foot wound culture. Blood culture has Group B strep. Source - foot infection. 4. Acute kidney disease. RECOMMENDATIONS: 1. Continue vancomycin. 2. Continue piperacillin/tazobactam. 3. Monitor white blood cell count. 4. Monitor blood cultures. 5. Monitor urine culture. 6. Monitor clinical response.
--- NOTE | 2017-09-19 13:54 | CT ---
EXAM DATE: 09/19/2017 12:39 PM EDT AGE/SEX: 52 years / Female INDICATIONS: PVD both leg gangrene right toes CLINICAL DATA: This is the patient's initial encounter. Patient reports that signs and symptoms have been present for 1 day and indicates a pain score of 7/10. MEDICAL/SURGICAL HISTORY: Diabetes. Hypertension. Hepatitis C. section. RADIATION DOSE: 4.04 CTDI (mGy) COMPARISON: No prior exams available for comparison. TECHNIQUE: Volumetric scanning was performed using a multi-row detector CT scanner during bolus infu gary of 85 ml Omnipaque 350 (iohexol) nonionic water-soluble contrast as a single exam dose. The d domi was post processed with a variety of visualization algorithms including full volume maximum inten sity projection, multi-planar sliding thin slab reformation, curved planar reformation, and surface r endering techniques. Using automated exposure control and adjustment of the mA and/or kV according t o patient size, radiation dose was kept as low as reasonably achievable to obtain optimal diagnostic quality images. DICOM format image data is available electronically for review and comparison. FINDINGS: Abdominal aorta: The celiac and SMA origins are widely patent. There are single renal arteries bilate rally. The renal arteries are widely patent. The infrarenal aorta is normal in caliber. The JOSE DAVID is pa tent. Pelvic circulation: The common iliac, internal iliac and external iliac circulation is widely patent. Note is made of an artifact on the reconstructed images on the right. This is not evident on the CT source data. Right leg: The common femoral, profunda femoral, superficial femoral, popliteal and trifurcation vess els are all widely patent. Left leg: The common femoral, profunda femoral, superficial femoral and popliteal are widely patent. Distally, there is three-vessel runoff to the foot. CT source data: Imaging through the pulmonary parenchyma demonstrates small bilateral effusions and p atchy areas of parenchymal infiltrate bilaterally. These are concerning for pneumonia. The solid orga ns of the abdomen are grossly intact. No free air free fluid is seen. No retroperitoneal adenopathy i s identified. There is a Tristan catheter present within the bladder. Distally, the examination demonstrates gas diffusely throughout the subcutaneous tissues of the right foot and ankle concerning for infection or penetrating injury. CONCLUSION: 1. The examination demonstrates normal inflow and runoff to both lower extremities. 2. There is gas diffusely throughout the soft tissues of the right foot and ankle concerning for inf ection. Electronically signed by: Ghanshyam Arias MD 09/19/2017 1:53 PM EDT
[2017-09-19] MEDS: Sod Chloride 0.9% Inj 1,000 ML IV.CONT SCH (15:40)
[2017-09-19] MEDS: Piperacil/Tazo 2.25 GM Premix 50 ML IV.SIG SCH ×4 (16:02→18:19)
[2017-09-20] MEDS: Morphine Inj 4 MG/ML Vial IV.PUSH PRN ×3 (00:05→16:00)
[2017-09-20] MEDS: Piperacil/Tazo 2.25 GM Premix 50 ML IV.SIG SCH ×4 (00:05→17:45)
[2017-09-20] MEDS: Dextrose 50% in Water 50 ML Vial IV.PUSH PRN (05:23)
[2017-09-20] MEDS: Chlorhexidine Gluconate 2% 1 Pack (2 Cloths) TOPICAL SCH (05:24)
[2017-09-20] MEDS: Insulin NovoLIN Regular Correctional Sugar Inj SQ SCH ×2 (05:24→07:40)
[2017-09-20 06:16] LABS: Baso # (Auto) 0.1 th/mm3 (0.0-0.2); Baso % (Auto) 0.6 % (0.0-2.0); Eos # (Auto) 0.1 th/mm3 (0.0-0.4); Eos % (Auto) 0.6 % (0.0-4.0); Hemoglobin 10.2 gm/dL (11.6-15.3); Lymph # (Auto) 1.9 th/mm3 (1.0-4.8); Lymph % (Auto) 16.7 % (9.0-44.0); Mean Corpuscular HGB Conc 32.7 % (32.0-36.0); Mean Corpuscular Hemoglobin 28.6 pg (27.0-34.0); Mean Corpuscular Volume 87.5 fL (80.0-100.0); Mean Platelet Volume 9.7 fL (7.0-11.0); Mono # (Auto) 0.5 th/mm3 (0.0-0.9); Mono % (Auto) 4.8 % (0.0-8.0); Neut # (Auto) 8.6 th/mm3 (1.8-7.7); Neut % (Auto) 77.3 % (16.0-70.0); Platelet Count 223 th/mm3 (150-450); Red Blood Count 3.55 mil/mm3 (4.00-5.30); Red Cell Distribution Width 14.9 % (11.6-17.2); White Blood Count 11.1 th/mm3 (4.0-11.0)
[2017-09-20 06:44] LABS: Alanine Aminotransferase 10 U/L (10-53); Albumin 1.3 g/dL (3.4-5.0); Alkaline Phosphatase 392 U/L (45-117); Anion Gap 9 meq/L (5-15); Aspartate Aminotransferase 17 U/L (15-37); Blood Urea Nitrogen 18 mg/dL (7-18); Calcium 7.7 mg/dL (8.5-10.1); Carbon Dioxide 23.2 meq/L (21.0-32.0); Chloride 111 meq/L (98-107); Glomerular Filtration Rate 81 mL/min (>89); Glucose,Random 62 mg/dL (74-106); Magnesium 1.7 mg/dL (1.5-2.5); Potassium 3.8 meq/L (3.5-5.1); Sodium 143 meq/L (136-145); Total Protein 6.6 g/dL (6.4-8.2)
[2017-09-20] MEDS: Vancomycin Inj 1,000 MG in Sodium Chlor 0.9% Inj 250 ML IV.SIG SCH ×2 (07:36→20:13)
[2017-09-20] MEDS ORDERED: Dextrose 50% in Water 50 ML Vial IV.PUSH PRN (08:13)
[2017-09-20] MEDS ORDERED: Dextrose 5%/NaCl 0.9% Inj 1,000 ML IV.CONT SCH (08:15)
--- NOTE | 2017-09-20 08:17 | P.PNCC ---
Subjective Subjective Remarks/Hospital Course: 52-year-old female with past medical history of hepatitis C, diabetes , hypertension, ulcer of the right heel who was admitted to [facility] service on 09/17/17 when she was admitted for right foot osteomyelitis. She had recently been admitted for this complaint 08/21 and left AMA on 08/29. During that admission she had an MRI of the foot 08/24/17 it was consistent with osteomyelitis. Wound cultures were positive for MRSA and group B strep. Blood cultures 08/21 were negative. She had normal ABIs. She was treated with Abx, surgical debridement by Dr. Valentine, and wound vac. She was readmitted for worsening pain in her heel. She had severe hyperglycemia without DKA. She was treated with an insulin drip and then transition to subcut. She has been hypotensive throughout the day and has been treated with fluid resuscitation. She has a 3.5 L of fluid bolus in addition to ~ 2 Liters of MIVF and meds. She has also received 2 units PRBC for Hgb 6.4 without obvious source of bleeding. She remains hypotensive and thus [facility] has been consulted to assist with hemodynamic management. She has been evaluated by podiatry, and R BKA recommended. Awaiting vascular surgery consultation. She denies chest pain, shortness of breath, abdominal pain, nausea, vomiting, flank pain. 09/19 Patient is lying in bed in NAD. On room air oxygen. afebrile. Off Levophed. 09/20 Patient is lying in bed in NAD. For OR today for right BKA Objective Vital Signs / I&O: Vital Signs 09/19/17 08:30 09/19/17 09:00 09/19/17 09:29 Temperature Pulse Rate 104 H 102 H 103 H Respiratory Rate 17 22 28 H Blood Pressure 127/69 134/74 130/67 Pulse Oximetry 91 L 91 L 91 L 09/19/17 10:00 09/19/17 10:39 09/19/17 11:04 Temperature Pulse Rate 102 H 102 H Respiratory Rate 20 Blood Pressure 108/60 Pulse Oximetry 90 L 91 L 09/19/17 11:33 09/19/17 11:40 09/19/17 12:00 Temperature Pulse Rate 101 H 103 H 100 H Respiratory Rate 16 14 14 Blood Pressure 125/70 127/66 130/71 Pulse Oximetry 89 L 92 L 90 L 09/19/17 12:30 09/19/17 13:00 09/19/17 13:30 Temperature Pulse Rate 100 H 100 H 100 H Respiratory Rate 17 15 15 Blood Pressure 130/66 123/68 118/64 Pulse Oximetry 97 97 97 09/19/17 14:00 09/19/17 14:30 09/19/17 15:00 Temperature Pulse Rate 101 H 101 H 101 H Respiratory Rate 15 22 28 H Blood Pressure 112/70 112/66 104/64 Pulse Oximetry 94 L 93 L 92 L 09/19/17 15:30 09/19/17 16:00 09/19/17 16:30 Temperature 98.5 F Pulse Rate 101 H 100 H 100 H Respiratory Rate 15 15 17 Blood Pressure 113/73 124/74 133/71 Pulse Oximetry 97 97 94 L 09/19/17 17:00 09/19/17 17:30 09/19/17 18:00 Temperature Pulse Rate 99 H 100 H 111 H Respiratory Rate 16 18 29 H Blood Pressure 131/67 128/65 Pulse Oximetry 96 95 84 L 09/19/17 18:01 09/19/17 19:00 09/19/17 20:00 Temperature 98.1 F Pulse Rate 107 H 103 H 100 H Respiratory Rate 18 16 16 Blood Pressure 115/69 130/70 126/73 Pulse Oximetry 91 L 95 92 L 09/19/17 21:00 09/19/17 21:21 09/19/17 22:00 Temperature Pulse Rate 102 H 104 H Respiratory Rate 22 17 19 Blood Pressure 127/79 132/72 Pulse Oximetry 88 L 89 L 09/19/17 23:00 09/20/17 00:00 09/20/17 01:00 Temperature 98.9 F Pulse Rate 102 H 104 H 102 H Respiratory Rate 21 21 18 Blood Pressure 119/60 133/62 129/61 Pulse Oximetry 88 L 98 99 09/20/17 02:00 09/20/17 03:00 09/20/17 04:00 Temperature 98.4 F Pulse Rate 103 H 100 H 101 H Respiratory Rate 20 17 17 Blood Pressure 120/75 112/59 L 119/56 L Pulse Oximetry 100 99 98 09/20/17 05:00 09/20/17 06:00 Temperature Pulse Rate 97 H 100 H Respiratory Rate 23 19 Blood Pressure 123/67 130/73 Pulse Oximetry 99 100 Intake & Output 09/19/17 09/20/17 09/20/17 18:59 06:59 18:59 Intake Total 1220 / 1220 350 / 350 50 / 50 Output Total 750 / 750 Balance 470 / 470 350 / 350 50 / 50 Weight 79 kg Intake: IV 500 / 500 300 / 300 50 / 50 Zosyn 2.25 GM Premix 50 ML @ 250 / 250 50 / 50 50 / 50 100 mls/hr IV.SIG Q6HR RICARDO Rx#: [id number] Vancomycin Inj 1,000 MG In NS 250 / 250 250 / 250 Inj 250 ML @ 250 mls/hr IV.SIG Q12H RICARDO Rx#:[id number] Oral 720 / 720 50 / 50 Output: Urine Amount (Catheter) 750 / 750 Indwelling Urethral Catheter 750 / 750 Other: # Bowel Movements 0 Result Diagrams: 09/20/17 05:00 09/20/17 05:00 Other Results: Laboratory Results - last 12 hr 09/19/17 09/20/17 09/20/17 20:50 00:56 05:00 WBC 11.1 H RBC 3.55 L Hgb 10.2 L Hct 31.0 L MCV 87.5 MCH 28.6 MCHC 32.7 RDW 14.9 Plt Count 223 MPV 9.7 Neut % (Auto) 77.3 H Lymph % (Auto) 16.7 [place] % (Auto) 4.8 Eos % (Auto) 0.6 Baso % (Auto) 0.6 Neut # (Auto) 8.6 H Lymph # (Auto) 1.9 [place] # (Auto) 0.5 Eos # (Auto) 0.1 Baso # (Auto) 0.1 WBC Differential . Differential Comment Auto diff final Sodium Potassium Chloride Carbon Dioxide Anion Gap BUN Creatinine Estimated GFR POC Glucose 96 102 Random Glucose Calcium Phosphorus Magnesium Total Bilirubin AST ALT Alkaline Phosphatase Total Protein Albumin 09/20/17 09/20/17 09/20/17 05:00 05:17 06:27 WBC RBC Hgb Hct MCV MCH MCHC RDW Plt Count MPV Neut % (Auto) Lymph % (Auto) [place] % (Auto) Eos % (Auto) Baso % (Auto) Neut # (Auto) Lymph # (Auto) [place] # (Auto) Eos # (Auto) Baso # (Auto) WBC Differential Differential Comment Sodium 143 Potassium 3.8 Chloride 111 H Carbon Dioxide 23.2 Anion Gap 9 BUN 18 Creatinine 0.75 Estimated GFR 81 L POC Glucose 67 L 134 H Random Glucose 62 L Calcium 7.7 L Phosphorus 3.0 Magnesium 1.7 Total Bilirubin 1.0 AST 17 ALT 10 Alkaline Phosphatase 392 H Total Protein 6.6 Albumin 1.3 L 09/20/17 07:35 WBC RBC Hgb Hct MCV MCH MCHC RDW Plt Count MPV Neut % (Auto) Lymph % (Auto) [place] % (Auto) Eos % (Auto) Baso % (Auto) Neut # (Auto) Lymph # (Auto) [place] # (Auto) Eos # (Auto) Baso # (Auto) WBC Differential Differential Comment Sodium Potassium Chloride Carbon Dioxide Anion Gap BUN Creatinine Estimated GFR POC Glucose 133 H Random Glucose Calcium Phosphorus Magnesium Total Bilirubin AST ALT Alkaline Phosphatase Total Protein Albumin Imaging: Foot X-Ray 09/17/17 02:18 CONCLUSION: 1. Fracture deformity of the calcaneus with large overlying soft tissue defect which extends into the fracture. Chest X-Ray 09/18/17 00:35 CONCLUSION: 1. Interval placement of right internal jugular central venous line with no pneumothorax. 2. No acute cardiopulmonary disease. Foot MRI 09/19/17 00:00 CONCLUSION: Nearly all of the calcaneus is involved by osteomyelitis. A large fracture cleft has developed as above. There is gas in the soft tissues, fracture cleft, subtalar joint and focally in the talus adjacent to the sinus Tarsi. No definite talar osteomyelitis. Aorta w/Runoff CTA 09/19/17 09:45 CONCLUSION: 1. The examination demonstrates normal inflow and runoff to both lower extremities. 2. There is gas diffusely throughout the soft tissues of the right foot and ankle concerning for infection. Objective Remarks: GENERAL: Patient is 52 yo lying in bed in NAD SKIN: Warm and dry. HEAD: Normocephalic. EYES: No scleral icterus. No injection or drainage. NECK: Supple, trachea midline. No JVD or lymphadenopathy. CARDIOVASCULAR: Regular rate and rhythm without murmurs, gallops, or rubs. RESPIRATORY: Breath sounds equal bilaterally. No accessory muscle use. GASTROINTESTINAL: Abdomen soft, non-tender, nondistended. MUSCULOSKELETAL: No cyanosis, right foot wrapped. Neuro: awake and alert. Assessment and Plan - Problem List (1) Septic shock Code(s): A41.9 - Sepsis, unspecified organism; R65.21 - Severe sepsis with septic shock Status: Acute (2) Hyperglycemia Code(s): R73.9 - Hyperglycemia, unspecified Status: Acute (3) Acute osteomyelitis of right calcaneus Code(s): M86.171 - Other acute osteomyelitis, right ankle and foot Status: Acute (4) DM (diabetes mellitus) Code(s): E11.9 - Type 2 diabetes mellitus without complications Status: Acute - Assessment and Plan Plan: NEURO: Pain secondary to R foot osteomyelitis Awake and alert On Ofirmev and morphine as needed for pain. RESP: Prior tobacco abuse Oxygen PRN keep sats >92% CV: Septic shock- Resolved Monitor HR and BP keep MAP>65mmHg Lactic acid: 1.2 GI: NPO for OR today FEN/RENAL: MARIO- Resolved Monitor renal function, I/O's, electrolytes replacement as needed. Change IVF [id number]@84ml/hr ID: Septic shock Right foot osteomyelitis Continue vancomycin and Zosyn. ID is following, add Diflucan for UTI Monitor for signs of infections ( Fever, WBC) WBC is trending down Podiatry and vascular surgery ( Dr. Lockett) are following recommended right BKA today BC /: NGTD BC 09/18 02/22 bottles Group B beta strep Urine cx 09/18: Yeast HEME: Monitor CBC ENDO: Diabetes mellitus Hold Levemir , SSI ( low scale) for glycemic control PROPH: Famotidine p.o. for stress ulcer prophylaxis not on chemical AC prophylaxis due to anemia and concern for bleeding , patient for possible OR tomorrow for right BKA ACCESS: Right IJ central venous line placed 09/18, peripheral IV's Addendum: Patient came back from OR on BIPAP wit 50% FIO2. CXR showed diffuse b/ l pulm infiltrates. She was given Morphine 4mg total today for pain. Patient is lethargic, hypoxic with sats <90% and with altered mental status. Patient was subsequently intubated and placed on mechanical ventilation. Check CXR and ABG post intubation. Full code Level 3
[2017-09-20] MEDS ORDERED: fentaNYL Citrate Inj 100 MCG/2 ML Ampul ONE ×2 (08:29→16:13)
[2017-09-20] MEDS ORDERED: Famotidine PF Inj 20 MG/2 ML Vial ONE (08:29)
[2017-09-20] MEDS ORDERED: *Ondansetron Inj 4 MG/2 ML Vial PERIprocedural Use ONLY ONE (08:45)
[2017-09-20] MEDS ORDERED: Ketamine Inj 50 MG/5 ML Syringe IV.PUSH ONE (08:48)
[2017-09-20] MEDS ORDERED: *morphine SULFATE 4 MG/ML PERIprocedure ONLY ONE (11:32)
[2017-09-20] MEDS ORDERED: Phenylephrine/NS 1000 MCG/10ML Syringe IV.PUSH ONE (12:00)
[2017-09-20] MEDS ORDERED: Neostigmine Inj 5 MG/5 ML Syringe IV.PUSH ONE (12:00)
[2017-09-20] MEDS ORDERED: Succinylcholine Inj 200 MG/10 ML Vial IV.PUSH ONE (12:00)
[2017-09-20] MEDS ORDERED: Lidocaine PF 1% Inj 5 ML Syringe INFILTRATN ONE (12:00)
[2017-09-20] MEDS ORDERED: Glycopyrrolate Inj 1 MG/5 ML Syringe IV.PUSH ONE (12:00)
[2017-09-20 12:06] LABS: ABG Base Excess -5.3 mmol/L (-2-2); ABG PCO2 36 mmHg (38-42); ABG PO2 78 mmHG (61-120)
[2017-09-20] MEDS: Insulin NovoLOG Aspart Correctional Sugar Inj SQ SCH ×3 (13:01→20:24)
[2017-09-20] MEDS: Pantoprazole Sodium 20 MG DR Tablet PO SCH (13:09)
[2017-09-20] MEDS: Senna/Docusate Sodium 8.6/50 MG Tablet PO SCH ×2 (13:09→20:14)
[2017-09-20] MEDS: Mupirocin 2% Nasal Oint Topical Syringe EACH NARE SCH ×2 (13:10→20:14)
--- NOTE | 2017-09-20 13:25 | XR ---
EXAM DATE: 09/20/2017 1:07 PM EDT AGE/SEX: 52 years / Female INDICATIONS: Shortness of breath. CLINICAL DATA: This is the patient's initial encounter. Patient reports that signs and symptoms have been present for 1 day and indicates a pain score of 0/10. MEDICAL/SURGICAL HISTORY: Diabetes. Hypertension. None. [place] [facility] [place]. . FINDINGS: There is a right internal jugular central line in place with tip overlying the right atrium. The hear t size is normal. There is dense consolidation throughout much of the left lung being worse at the le ft mid and lower lung. There is lesser degree of consolidation at the right upper lung. Some of the r ight upper chest density is accentuated secondary to the overlying scapula. There appears to be diffu se increased interstitial markings. CONCLUSION: Bilateral areas of consolidation being worse on the left. These have progressed since the prior exam. Electronically signed by: Derek Neil MD 09/20/2017 1:24 PM EDT
--- NOTE | 2017-09-20 15:26 | P.PNVS ---
Subjective Subjective/Hospital Course: 51-year-old female with diabetes mellitus and a huge necrotic ulcer of the left heel and necrosis of the left midfoot with exposed bone and osteomyelitis At this point there are no other options available then below-knee amputation and will go ahead with the same on Full consult dictated Thanks J 09/19/2017 Patient with peripheral vascular disease and gangrene of the right foot and non- salvageable lower leg for below-knee amputation tomorrow Second opinion rendered by Dr. York. We will do CTA with a runoff to evaluate for any other vascular occlusive disease that might jeopardize either the BKA or the other leg in the future. Based on clinical exam I do not believe the patient has any inflow occlusive disease and popliteal vessels are clearly patent Patient has dorsalis pedis and posterior tibial arteries bilateral and I do not believe she has a significant degree of outflow disease either. Majority of diseases is likely in patient's foot and small vessels. Patient scheduled to undergo tomorrow right below-knee amputation was depending on the appearance of the tissues might be carried out in 2 stages first is a guillotine amputation and second stage closure or in 1 stage if tissues appear to be adequate. 09/20/2017 Patient is status post right below-knee guillotine amputation and wound VAC placement. This is infected area and primary closure with a been ill advised Patient will have wound VAC until next week in about 5-6 days should be ready for a second stage procedure and closure of the below-knee stump Objective Vital Signs / I&O: Vital Signs 09/19/17 15:30 09/19/17 16:00 09/19/17 16:30 Temperature 98.5 F Pulse Rate 101 H 100 H 100 H Respiratory Rate 15 15 17 Blood Pressure 113/73 124/74 133/71 Pulse Oximetry 97 97 94 L 09/19/17 17:00 09/19/17 17:30 09/19/17 18:00 Temperature Pulse Rate 99 H 100 H 111 H Respiratory Rate 16 18 29 H Blood Pressure 131/67 128/65 Pulse Oximetry 96 95 84 L 09/19/17 18:01 09/19/17 19:00 09/19/17 20:00 Temperature 98.1 F Pulse Rate 107 H 103 H 100 H Respiratory Rate 18 16 16 Blood Pressure 115/69 130/70 126/73 Pulse Oximetry 91 L 95 92 L 09/19/17 21:00 09/19/17 21:21 09/19/17 22:00 Temperature Pulse Rate 102 H 104 H Respiratory Rate 22 17 19 Blood Pressure 127/79 132/72 Pulse Oximetry 88 L 89 L 09/19/17 23:00 09/20/17 00:00 09/20/17 01:00 Temperature 98.9 F Pulse Rate 102 H 104 H 102 H Respiratory Rate 21 21 18 Blood Pressure 119/60 133/62 129/61 Pulse Oximetry 88 L 98 99 09/20/17 02:00 09/20/17 03:00 09/20/17 04:00 Temperature 98.4 F Pulse Rate 103 H 100 H 101 H Respiratory Rate 20 17 17 Blood Pressure 120/75 112/59 L 119/56 L Pulse Oximetry 100 99 98 09/20/17 05:00 09/20/17 06:00 09/20/17 07:00 Temperature 97.8 F Pulse Rate 97 H 100 H 96 H Respiratory Rate 23 19 20 Blood Pressure 123/67 130/73 118/62 Pulse Oximetry 99 100 98 09/20/17 07:30 09/20/17 08:00 09/20/17 08:18 Temperature 98.4 F Pulse Rate 96 H 96 H 107 H Respiratory Rate 17 18 20 Blood Pressure 117/60 118/62 126/79 Pulse Oximetry 82 L 09/20/17 10:49 09/20/17 10:57 09/20/17 10:58 Temperature 97.8 F Pulse Rate 118 H 117 H Respiratory Rate 22 20 Blood Pressure 136/71 Pulse Oximetry 88 L 96 09/20/17 11:00 09/20/17 11:15 09/20/17 11:30 Temperature Pulse Rate 114 H 114 H 110 H Respiratory Rate 14 14 14 Blood Pressure 135/73 127/67 113/60 Pulse Oximetry 98 98 97 09/20/17 11:38 09/20/17 11:45 09/20/17 11:55 Temperature 97.7 F 98.8 F Pulse Rate 110 H Respiratory Rate 16 17 Blood Pressure 113/60 Pulse Oximetry 97 98 92 L 09/20/17 12:00 09/20/17 12:02 09/20/17 12:05 Temperature 98.7 F 98.7 F Pulse Rate 108 H 105 H Respiratory Rate 18 15 Blood Pressure 112/60 112/60 Pulse Oximetry 90 L 91 L 91 L 08/02/18 12:30 09/20/17 13:00 09/20/17 13:35 Temperature Pulse Rate 105 H 101 H Respiratory Rate 19 11 L Blood Pressure 115/61 106/56 L Pulse Oximetry 94 L 93 L 96 09/20/17 15:09 Temperature Pulse Rate 97 H Respiratory Rate 17 Blood Pressure Pulse Oximetry Intake & Output 09/19/17 09/20/17 09/20/17 18:59 06:59 18:59 Intake Total 1220 / 1220 350 / 350 1000 / 1000 Output Total 750 / 750 100 / 100 Balance 470 / 470 350 / 350 900 / 900 Weight 79 kg Intake: IV 500 / 500 300 / 300 300 / 300 Zosyn 2.25 GM Premix 50 ML @ 250 / 250 50 / 50 50 / 50 100 mls/hr IV.SIG Q6HR RICARDO Rx#: [id number] Vancomycin Inj 1,000 MG In NS 250 / 250 250 / 250 250 / 250 Inj 250 ML @ 250 mls/hr IV.SIG Q12H RICARDO Rx#:[id number] Oral 720 / 720 50 / 50 Anesthesia Amount 700 / 700 Output: Estimated Blood Loss 100 / 100 Urine Amount (Catheter) 750 / 750 Indwelling Urethral Catheter 750 / 750 Other: # Bowel Movements 0 Laboratory Results - last 24 hr 09/18/17 09/19/17 09/19/17 09:45 15:45 16:12 WBC RBC Hgb Hct MCV MCH MCHC RDW Plt Count MPV Neut % (Auto) Lymph % (Auto) [place] % (Auto) Eos % (Auto) Baso % (Auto) Neut # (Auto) Lymph # (Auto) [place] # (Auto) Eos # (Auto) Baso # (Auto) WBC Differential Differential Comment Puncture Site Patient Temperature O2 Saturation ABG pH ABG pCO2 ABG pO2 ABG HCO3 ABG O2 Content ABG Base Excess ABG Methemoglobin Aroldo Test Hemoglobin Carboxyhemoglobin O2 Delivery Device Vent Setting Inspired O2 Critical Value Sodium Potassium Chloride Carbon Dioxide Anion Gap BUN Creatinine Estimated GFR POC Glucose 145 H Random Glucose Calcium Phosphorus Magnesium Total Bilirubin AST ALT Alkaline Phosphatase Total Protein Albumin Urine Color Anh Urine Clarity Cloudy H Urine pH 5.0 Ur Specific [place] 1.018 Urine Protein 30 H Urine Glucose (UA) Negative Urine Ketones Negative Urine Occult Blood Moderate H Urine Nitrate Negative Urine Bilirubin Negative Urine Urobilinogen 4 or greater Ur Leukocyte Esterase Moderate H Urine RBC 9 H Urine WBC 61 H Urine WBC Clumps Rare H Urine Bacteria Rare H Urine Yeast Many H Micro UA Comment Cath-culture ind Urine Culture Comments Cath-cult indicated Vancomycin Trough 15.4 H 09/19/17 09/20/17 09/20/17 20:50 00:56 05:00 WBC 11.1 H RBC 3.55 L Hgb 10.2 L Hct 31.0 L MCV 87.5 MCH 28.6 MCHC 32.7 RDW 14.9 Plt Count 223 MPV 9.7 Neut % (Auto) 77.3 H Lymph % (Auto) 16.7 [place] % (Auto) 4.8 Eos % (Auto) 0.6 Baso % (Auto) 0.6 Neut # (Auto) 8.6 H Lymph # (Auto) 1.9 [place] # (Auto) 0.5 Eos # (Auto) 0.1 Baso # (Auto) 0.1 WBC Differential . Differential Comment Auto diff final Puncture Site Patient Temperature O2 Saturation ABG pH ABG pCO2 ABG pO2 ABG HCO3 ABG O2 Content ABG Base Excess ABG Methemoglobin Aroldo Test Hemoglobin Carboxyhemoglobin O2 Delivery Device Vent Setting Inspired O2 Critical Value Sodium Potassium Chloride Carbon Dioxide Anion Gap BUN Creatinine Estimated GFR POC Glucose 96 102 Random Glucose Calcium Phosphorus Magnesium Total Bilirubin AST ALT Alkaline Phosphatase Total Protein Albumin Urine Color Urine Clarity Urine pH Ur Specific [place] Urine Protein Urine Glucose (UA) Urine Ketones Urine Occult Blood Urine Nitrate Urine Bilirubin Urine Urobilinogen Ur Leukocyte Esterase Urine RBC Urine WBC Urine WBC Clumps Urine Bacteria Urine Yeast Micro UA Comment Urine Culture Comments Vancomycin Trough 09/20/17 09/20/17 09/20/17 05:00 05:17 06:27 WBC RBC Hgb Hct MCV MCH MCHC RDW Plt Count MPV Neut % (Auto) Lymph % (Auto) [place] % (Auto) Eos % (Auto) Baso % (Auto) Neut # (Auto) Lymph # (Auto) [place] # (Auto) Eos # (Auto) Baso # (Auto) WBC Differential Differential Comment Puncture Site Patient Temperature O2 Saturation ABG pH ABG pCO2 ABG pO2 ABG HCO3 ABG O2 Content ABG Base Excess ABG Methemoglobin Aroldo Test Hemoglobin Carboxyhemoglobin O2 Delivery Device Vent Setting Inspired O2 Critical Value Sodium 143 Potassium 3.8 Chloride 111 H Carbon Dioxide 23.2 Anion Gap 9 BUN 18 Creatinine 0.75 Estimated GFR 81 L POC Glucose 67 L 134 H Random Glucose 62 L Calcium 7.7 L Phosphorus 3.0 Magnesium 1.7 Total Bilirubin 1.0 AST 17 ALT 10 Alkaline Phosphatase 392 H Total Protein 6.6 Albumin 1.3 L Urine Color Urine Clarity Urine pH Ur Specific [place] Urine Protein Urine Glucose (UA) Urine Ketones Urine Occult Blood Urine Nitrate Urine Bilirubin Urine Urobilinogen Ur Leukocyte Esterase Urine RBC Urine WBC Urine WBC Clumps Urine Bacteria Urine Yeast Micro UA Comment Urine Culture Comments Vancomycin Trough 09/20/17 09/20/17 09/20/17 07:35 08:25 11:03 WBC RBC Hgb Hct MCV MCH MCHC RDW Plt Count MPV Neut % (Auto) Lymph % (Auto) [place] % (Auto) Eos % (Auto) Baso % (Auto) Neut # (Auto) Lymph # (Auto) [place] # (Auto) Eos # (Auto) Baso # (Auto) WBC Differential Differential Comment Puncture Site Patient Temperature O2 Saturation ABG pH ABG pCO2 ABG pO2 ABG HCO3 ABG O2 Content ABG Base Excess ABG Methemoglobin Aroldo Test Hemoglobin Carboxyhemoglobin O2 Delivery Device Vent Setting Inspired O2 Critical Value Sodium Potassium Chloride Carbon Dioxide Anion Gap BUN Creatinine Estimated GFR POC Glucose 133 H 109 133 H Random Glucose Calcium Phosphorus Magnesium Total Bilirubin AST ALT Alkaline Phosphatase Total Protein Albumin Urine Color Urine Clarity Urine pH Ur Specific [place] Urine Protein Urine Glucose (UA) Urine Ketones Urine Occult Blood Urine Nitrate Urine Bilirubin Urine Urobilinogen Ur Leukocyte Esterase Urine RBC Urine WBC Urine WBC Clumps Urine Bacteria Urine Yeast Micro UA Comment Urine Culture Comments Vancomycin Trough 09/20/17 09/20/17 12:01 12:03 WBC RBC Hgb Hct MCV MCH MCHC RDW Plt Count MPV Neut % (Auto) Lymph % (Auto) [place] % (Auto) Eos % (Auto) Baso % (Auto) Neut # (Auto) Lymph # (Auto) [place] # (Auto) Eos # (Auto) Baso # (Auto) WBC Differential Differential Comment Puncture Site Left radial Patient Temperature 98.6 O2 Saturation 92 ABG pH 7.35 L ABG pCO2 36 L ABG pO2 78 ABG HCO3 19 L ABG O2 Content 13.4 ABG Base Excess -5.3 L ABG Methemoglobin 1.4 Aroldo Test Present Hemoglobin 10.3 L Carboxyhemoglobin 1.5 O2 Delivery Device Bipap Vent Setting [id number] Inspired O2 50 Critical Value No Sodium Potassium Chloride Carbon Dioxide Anion Gap BUN Creatinine Estimated GFR POC Glucose 136 H Random Glucose Calcium Phosphorus Magnesium Total Bilirubin AST ALT Alkaline Phosphatase Total Protein Albumin Urine Color Urine Clarity Urine pH Ur Specific [place] Urine Protein Urine Glucose (UA) Urine Ketones Urine Occult Blood Urine Nitrate Urine Bilirubin Urine Urobilinogen Ur Leukocyte Esterase Urine RBC Urine WBC Urine WBC Clumps Urine Bacteria Urine Yeast Micro UA Comment Urine Culture Comments Vancomycin Trough Microbiology 09/18/17 09:45 Urine Culture - Final Catheterized Urine Talia glabrata 09/18/17 04:05 Aerobic Blood Culture - Preliminary Blood - Peripheral No growth in 2 days Anaerobic Blood Culture - Preliminary No growth in 2 days 09/18/17 06:56 Aerobic Blood Culture - Preliminary Blood - Peripheral Group B beta Strep Anaerobic Blood Culture - Preliminary No growth in 2 days 09/19/17 11:53 Aerobic Blood Culture - Preliminary Blood - Peripheral No growth in 1 day Anaerobic Blood Culture - Preliminary No growth in 1 day 09/19/17 11:58 Aerobic Blood Culture - Preliminary Blood - Peripheral No growth in 1 day Anaerobic Blood Culture - Preliminary No growth in 1 day Impressions Foot MRI 09/19/17 00:00 CONCLUSION: Nearly all of the calcaneus is involved by osteomyelitis. A large fracture cleft has developed as above. There is gas in the soft tissues, fracture cleft, subtalar joint and focally in the talus adjacent to the sinus Tarsi. No definite talar osteomyelitis. Aorta w/Runoff CTA 09/19/17 09:45 CONCLUSION: 1. The examination demonstrates normal inflow and runoff to both lower extremities. 2. There is gas diffusely throughout the soft tissues of the right foot and ankle concerning for infection. Chest X-Ray 09/20/17 12:02 CONCLUSION: Bilateral areas of consolidation being worse on the left. These have progressed since the prior exam.
--- NOTE | 2017-09-20 15:44 | MP ---
cc: Tim Ugarte MD DATE OF OPERATION: 09/20/2017 PREOPERATIVE DIAGNOSES: 1. Gangrene of the right foot. 2. Diabetes mellitus. POSTOPERATIVE DIAGNOSES: 1. Gangrene of the right foot. 2. Diabetes mellitus. OPERATIVE PROCEDURE: Right below-knee guillotine amputation. SURGEON: Dr. Ugarte ANESTHESIA: General. ESTIMATED BLOOD LOSS: 100 mL. OPERATIVE PROCEDURE: The patient is prepped and draped in the usual fashion. Incision is marked with a string in the skin and made circumferentially about 2 inches above the ankle, deepened down to the subcutaneous tissue and then muscle. Medially the posterior tibial artery is divided and ligated and then laterally anterior tibial artery, fibula and tibia are exposed and transected with an oscillating saw and then incision finished with an amputation knife. Area irrigated with copious amounts of saline and then the residual bleeders tied with 2-0 Vicryl stick ties. Wound VAC is applied. The patient was taken out of the operating room in stable condition. The patient will be brought back to the operating room in about 5-6 days for completion below-knee amputation and closure. MD SYLVIA Morales/MOISES , 03:24 PM , 03:31 PM
[2017-09-20] MEDS ORDERED: Etomidate Inj 40 MG/20 ML Vial IV.PUSH ONE (16:13)
[2017-09-20] MEDS: Midazolam 50 MG/50 ML Inj 50 MG/50 ML BAG IV.CONT PRN (17:15)
--- NOTE | 2017-09-20 17:22 | XR ---
EXAM DATE: 09/20/2017 5:20 PM EDT AGE/SEX: 52 years / Female INDICATIONS: Post intubation and central line placement. CLINICAL DATA: This is the patient's subsequent encounter. Patient reports that signs and symptoms h ave been present for 1 day and indicates a pain score of Nonresponsive. MEDICAL/SURGICAL HISTORY: . Diabetes. Hypertension. None. COMPARISON: C, CHEST 1V SINGLE AP, 09/20/2017. . FINDINGS: Stable right IJ central line. Interval intubation with ET tube at the level of the clavicles. Slightl y improved aeration of the left lung with persistent patchy diffuse airspace disease bilaterally. Car diomediastinal contours are within normal limits. Bony thorax is intact. CONCLUSION: 1. ETT in good position. 2. Improved aeration of the left lung with persistent diffuse patchy bilateral airspace disease. Electronically signed by: Jefferson Sapp MD 09/20/2017 5:21 PM EDT
[2017-09-20] MEDS ORDERED: Propofol Inj 500 MG/50 ML Vial ONE (17:28)
[2017-09-20] MEDS ORDERED: Propofol 1000 mg/100 ml Inj 1,000 MG/100 ML BOTTLE IV.CONT PRN (17:29)
[2017-09-20 17:41] LABS: ABG Base Excess -5.4 mmol/L (-2-2); ABG PCO2 36 mmHg (38-42); ABG PO2 94 mmHG (61-120)
[2017-09-20] MEDS: fentaNYL 10 mcg/mL Premix Drip 2,500 MCG/250 ML BAG IV.SIG PRN (17:47)
--- NOTE | 2017-09-20 19:19 | ECHRPT ---
Indication: SHORTNESS OF BREATH CONCLUSIONS Normal left ventricular size. Wall thickness is normal. The left ventricular systolic function is hyperdynamic with an estimated ejection fraction in the ra nge of 65- 70%. Trace mitral valve regurgitation. There is trace tricuspid valve regurgitation. BP: / HR: Rhythm: Sinus MEASUREMENTS (Male / Female) Normal Values Technical Quality:Fair 2D ECHO LV Diastolic Diameter PLAX 4.5 cm 4.2 - 5.9 / 3.9 - 5.3 cm LV Systolic Diameter PLAX 2.9 cm IVS Diastolic Thickness 0.9 cm 0.6 - 1.0 / 0.6 - 0.9 cm LVPW Diastolic Thickness 0.9 cm 0.6 - 1.0 / 0.6 - 0.9 cm LV Relative Wall Thickness 0.4 RV Internal Dim ED PLAX 2.0 cm LVOT Diameter 2.0 cm Aortic Root Diameter 2.7 cm LA Systolic Diameter LX 2.6 cm 3.0 - 4.0 / 2.7 - 3.8 cm M-MODE AV Cusp Separation MM 1.8 cm DOPPLER AV Peak Velocity 127.0 cm/s AV Peak Gradient 6.5 mmHg AV Mean Gradient 4.0 mmHg AV Velocity Time Integral 24.6 cm LVOT Peak Velocity 89.5 cm/s LVOT Peak Gradient 3.2 mmHg LVOT Velocity Time Integral 16.9 cm AV Area Cont Eq vti 2.2 cm AV Area Cont Eq pk 2.2 cm Mitral E Point Velocity 91.3 cm/s Mitral A Point Velocity 105.0 cm/s Mitral E to A Ratio 0.9 LV E' Lateral Velocity 10.0 cm/s Mitral E to LV E' Lateral Ratio 9.1 LV E' Septal Velocity 10.0 cm/s Mitral E to LV E' Septal Ratio 9.1 PV Peak Velocity 83.5 cm/s PV Peak Gradient 2.8 mmHg FINDINGS LEFT VENTRICLE Normal left ventricular size. Wall thickness is normal. The left ventricular systolic function is hyperdynamic with an estimated ejection fraction in the ra nge of 65- 70%. RIGHT VENTRICLE Normal right ventricular size and systolic function. LEFT ATRIUM The left atrial size is normal. RIGHT ATRIUM The right atrial size is normal. ATRIAL SEPTUM No atrial level shunt is demonstrated by color flow Doppler interrogation. AORTA The aortic root and proximal ascending aorta are normal in size on limited imaging. MITRAL VALVE Trace mitral valve regurgitation. AORTIC VALVE No aortic valve stenosis or regurgitation. TRICUSPID VALVE There is trace tricuspid valve regurgitation. PULMONARY VALVE No pulmonary valve regurgitation or stenosis. VESSELS The inferior vena cava is normal in size. PERICARDIUM No pericardial effusion. Maurizio Woo MD, FACC, [facility] [place] (Electronically Signed) Final Date:20 September 2017 19:18
[2017-09-21] MEDS: Insulin NovoLOG Aspart Correctional Sugar Inj SQ SCH ×7 (03:04→23:56)
[2017-09-21] MEDS: Piperacil/Tazo 2.25 GM Premix 50 ML IV.SIG SCH ×5 (03:09→23:29)
[2017-09-21] MEDS: Chlorhexidine Gluconate 2% 1 Pack (2 Cloths) TOPICAL SCH (05:04)
[2017-09-21] MEDS: Midazolam 50 MG/50 ML Inj 50 MG/50 ML BAG IV.CONT PRN ×4 (05:04→23:29)
[2017-09-21 05:58] LABS: Baso % (Auto) 0.3 % (0.0-2.0); Eos # (Auto) 0.1 th/mm3 (0.0-0.4); Eos % (Auto) 0.5 % (0.0-4.0); Hemoglobin 9.5 gm/dL (11.6-15.3); Lymph # (Auto) 2.6 th/mm3 (1.0-4.8); Lymph % (Auto) 25.5 % (9.0-44.0); Mean Corpuscular HGB Conc 32.7 % (32.0-36.0); Mean Corpuscular Hemoglobin 28.8 pg (27.0-34.0); Mean Platelet Volume 9.9 fL (7.0-11.0); Mono # (Auto) 0.5 th/mm3 (0.0-0.9); Neut # (Auto) 6.9 th/mm3 (1.8-7.7); Neut % (Auto) 68.7 % (16.0-70.0); Platelet Count 221 th/mm3 (150-450); Red Cell Distribution Width 15.1 % (11.6-17.2); White Blood Count 10.1 th/mm3 (4.0-11.0)
[2017-09-21 06:16] LABS: Calcium 7.8 mg/dL (8.5-10.1); Carbon Dioxide 27.4 meq/L (21.0-32.0)
[2017-09-21] MEDS ORDERED: Dextrose 50% in Water 50 ML Vial IV.PUSH PRN (07:01)
--- NOTE | 2017-09-21 07:06 | P.PNCC ---
Subjective Subjective Remarks/Hospital Course: 52-year-old female with past medical history of hepatitis C, diabetes , hypertension, ulcer of the right heel who was admitted to [facility] service on 09/17/17 when she was admitted for right foot osteomyelitis. She had recently been admitted for this complaint 08/21 and left AMA on 08/29. During that admission she had an MRI of the foot 08/24/17 it was consistent with osteomyelitis. Wound cultures were positive for MRSA and group B strep. Blood cultures 08/21 were negative. She had normal ABIs. She was treated with Abx, surgical debridement by Dr. Valentine, and wound vac. She was readmitted for worsening pain in her heel. She had severe hyperglycemia without DKA. She was treated with an insulin drip and then transition to subcut. She has been hypotensive throughout the day and has been treated with fluid resuscitation. She has a 3.5 L of fluid bolus in addition to ~ 2 Liters of MIVF and meds. She has also received 2 units PRBC for Hgb 6.4 without obvious source of bleeding. She remains hypotensive and thus [facility] has been consulted to assist with hemodynamic management. She has been evaluated by podiatry, and R CAROLYN recommended. Awaiting vascular surgery consultation. She denies chest pain, shortness of breath, abdominal pain, nausea, vomiting, flank pain. 09/19 Patient is lying in bed in NAD. On room air oxygen. afebrile. Off Levophed. 09/20 Patient is lying in bed in NAD. For OR today for right BKA 09/21 Patient was intubated yesterday for resp failure. Sedated with Fentanyl and Versed . Afebrile. Objective Vital Signs / I&O: Vital Signs 09/20/17 07:00 09/20/17 07:30 09/20/17 08:00 Temperature 97.8 F Pulse Rate 96 H 96 H 96 H Respiratory Rate 20 17 18 Blood Pressure 118/62 117/60 118/62 Pulse Oximetry 98 09/20/17 08:18 09/20/17 10:49 09/20/17 10:57 Temperature 98.4 F 97.8 F Pulse Rate 107 H 118 H Respiratory Rate 20 22 Blood Pressure 126/79 136/71 Pulse Oximetry 82 L 88 L 96 09/20/17 10:58 09/20/17 11:00 09/20/17 11:15 Temperature Pulse Rate 117 H 114 H 114 H Respiratory Rate 20 14 14 Blood Pressure 135/73 127/67 Pulse Oximetry 98 98 09/20/17 11:30 09/20/17 11:38 09/20/17 11:45 Temperature 97.7 F 98.8 F Pulse Rate 110 H 110 H Respiratory Rate 14 16 17 Blood Pressure 113/60 113/60 Pulse Oximetry 97 97 98 09/20/17 11:55 09/20/17 12:00 09/20/17 12:02 Temperature 98.7 F 98.7 F Pulse Rate 108 H 105 H Respiratory Rate 18 15 Blood Pressure 112/60 112/60 Pulse Oximetry 92 L 90 L 91 L 09/20/17 12:05 09/20/17 12:30 09/20/17 13:00 Temperature Pulse Rate 105 H 101 H Respiratory Rate 19 11 L Blood Pressure 115/61 106/56 L Pulse Oximetry 91 L 94 L 93 L 09/20/17 13:30 09/20/17 13:35 09/20/17 14:00 Temperature Pulse Rate 102 H 100 H Respiratory Rate 13 12 Blood Pressure 114/58 L 114/59 L Pulse Oximetry 93 L 96 95 09/20/17 14:30 09/20/17 15:00 09/20/17 15:09 Temperature Pulse Rate 98 H 100 H 97 H Respiratory Rate 12 14 17 Blood Pressure 110/58 L 113/61 Pulse Oximetry 96 09/20/17 15:30 09/20/17 16:00 09/20/17 16:15 Temperature Pulse Rate 98 H 109 H 98 H Respiratory Rate 12 34 H 13 Blood Pressure 113/63 Pulse Oximetry 94 L 80 L 09/20/17 16:30 09/20/17 16:45 09/20/17 16:48 Temperature Pulse Rate 102 H 91 H 101 H Respiratory Rate 20 21 42 H Blood Pressure 113/62 105/63 138/74 Pulse Oximetry 83 L 100 09/20/17 16:51 09/20/17 16:54 09/20/17 16:57 Temperature Pulse Rate 110 H 91 H 101 H Respiratory Rate 29 H 18 33 H Blood Pressure 145/69 H 93/52 L 136/75 Pulse Oximetry 96 97 100 09/20/17 17:00 09/20/17 17:03 09/20/17 17:06 Temperature Pulse Rate 91 H 91 H 91 H Respiratory Rate 17 14 14 Blood Pressure 104/59 L 103/60 103/61 Pulse Oximetry 100 100 100 09/20/17 17:09 09/20/17 17:12 09/20/17 17:15 Temperature Pulse Rate 92 H 99 H 101 H Respiratory Rate 21 25 H 24 Blood Pressure 105/61 126/69 119/66 Pulse Oximetry 100 80 L 09/20/17 17:19 09/20/17 17:21 09/20/17 17:24 Temperature Pulse Rate 109 H 108 H 116 H Respiratory Rate 33 H 22 24 Blood Pressure 154/70 H 155/71 H 151/74 H Pulse Oximetry 97 96 09/20/17 17:28 09/20/17 17:29 09/20/17 17:30 Temperature Pulse Rate 117 H 105 H 98 H Respiratory Rate 30 H 16 16 Blood Pressure 144/83 H 132/70 118/60 Pulse Oximetry 91 L 98 98 09/20/17 17:33 09/20/17 17:36 09/20/17 17:39 Temperature Pulse Rate 95 H 93 H 93 H Respiratory Rate 16 16 15 Blood Pressure 118/55 L 95/52 L 89/52 L Pulse Oximetry 95 94 L 94 L 09/20/17 17:42 09/20/17 17:45 09/20/17 17:48 Temperature Pulse Rate 92 H 92 H 92 H Respiratory Rate 17 15 20 Blood Pressure 87/54 L 87/50 L 83/51 L Pulse Oximetry 94 L 94 L 94 L 09/20/17 17:51 09/20/17 17:54 09/20/17 17:57 Temperature Pulse Rate 92 H 92 H 92 H Respiratory Rate 16 15 Blood Pressure 82/52 L 81/51 L 81/51 L Pulse Oximetry 95 95 95 09/20/17 18:00 09/20/17 18:03 09/20/17 18:06 Temperature Pulse Rate 92 H 92 H 92 H Respiratory Rate Blood Pressure 83/53 L 83/51 L 86/53 L Pulse Oximetry 96 96 96 09/20/17 18:09 09/20/17 18:12 09/20/17 18:15 Temperature Pulse Rate 92 H 94 H 95 H Respiratory Rate 16 Blood Pressure 85/52 L 84/52 L 94/53 L Pulse Oximetry 96 97 96 09/20/17 18:30 09/20/17 18:45 09/20/17 19:00 Temperature Pulse Rate 92 H 93 H 92 H Respiratory Rate 13 14 14 Blood Pressure 93/51 L 106/59 L 109/58 L Pulse Oximetry 95 97 96 09/20/17 20:00 09/20/17 20:38 09/20/17 21:00 Temperature 98.4 F Pulse Rate 86 87 92 H Respiratory Rate 17 19 16 Blood Pressure 110/62 105/57 L Pulse Oximetry 98 97 96 09/20/17 22:00 09/20/17 23:00 09/20/17 23:28 Temperature Pulse Rate 98 H 93 H 93 H Respiratory Rate 15 15 18 Blood Pressure 98/53 L 100/59 L Pulse Oximetry 93 L 93 L 96 09/21/17 00:00 09/21/17 01:00 09/21/17 02:00 Temperature Pulse Rate 99 H 98 H 96 H Respiratory Rate 16 16 16 Blood Pressure 100/55 L 105/58 L 109/59 L Pulse Oximetry 96 96 97 09/21/17 03:00 09/21/17 03:13 09/21/17 04:00 Temperature Pulse Rate 97 H 96 H 101 H Respiratory Rate 21 21 16 Blood Pressure 111/61 111/62 Pulse Oximetry 96 95 97 09/21/17 05:00 09/21/17 06:00 Temperature Pulse Rate 106 H 109 H Respiratory Rate 16 16 Blood Pressure 112/60 109/63 Pulse Oximetry 97 97 Intake & Output 09/20/17 09/20/17 09/21/17 06:59 18:59 06:59 Intake Total 350 / 350 1050 / 1050 450 / 450 Output Total 100 / 100 Balance 350 / 350 950 / 950 450 / 450 Weight 79 kg 76.5 kg Intake: IV 300 / 300 350 / 350 450 / 450 Versed Inj 50 mg In 50 ml @ 2 50 / 50 MG/HR 2 mls/hr IV.CONT TITRATE PRN Rx#:[id number] Diflucan 100 mg Premix Bag 50 50 / 50 ML @ 50 mls/hr IV.SIG Q24H [facility] Rx#:[id number] Zosyn 2.25 GM Premix 50 ML @ 50 / 50 100 / 100 100 / 100 100 mls/hr IV.SIG Q6HR RICARDO Rx#: [id number] Vancomycin Inj 1,000 MG In NS 250 / 250 250 / 250 250 / 250 Inj 250 ML @ 250 mls/hr IV.SIG Q12H [facility] Rx#:[id number] Oral 50 / 50 Anesthesia Amount 700 / 700 Output: Estimated Blood Loss 100 / 100 Other: Mode Setting Right Heel Continuous # Bowel Movements 0 Result Diagrams: 09/21/17 05:20 09/21/17 05:20 Other Results: Laboratory Results - last 12 hr 09/20/17 09/20/17 09/21/17 20:23 20:30 02:46 WBC RBC Hgb Hct MCV MCH MCHC RDW Plt Count MPV Neut % (Auto) Lymph % (Auto) [place] % (Auto) Eos % (Auto) Baso % (Auto) Neut # (Auto) Lymph # (Auto) [place] # (Auto) Eos # (Auto) Baso # (Auto) WBC Differential Differential Comment Sodium Potassium 3.8 Chloride Carbon Dioxide Anion Gap BUN Creatinine Estimated GFR POC Glucose 266 H 284 H Random Glucose Calcium 09/21/17 09/21/17 09/21/17 05:20 05:20 06:23 WBC 10.1 RBC 3.30 L Hgb 9.5 L Hct 29.0 L MCV 88.0 MCH 28.8 MCHC 32.7 RDW 15.1 Plt Count 221 MPV 9.9 Neut % (Auto) 68.7 Lymph % (Auto) 25.5 [place] % (Auto) 5.0 Eos % (Auto) 0.5 Baso % (Auto) 0.3 Neut # (Auto) 6.9 Lymph # (Auto) 2.6 [place] # (Auto) 0.5 Eos # (Auto) 0.1 Baso # (Auto) 0.0 WBC Differential . Differential Comment Auto diff final Sodium 142 Potassium 3.0 L D Chloride 106 Carbon Dioxide 27.4 Anion Gap 9 BUN 18 Creatinine 1.02 H Estimated GFR 57 L POC Glucose 297 H Random Glucose 282 H D Calcium 7.8 L Imaging: Foot X-Ray 09/17/17 02:18 CONCLUSION: 1. Fracture deformity of the calcaneus with large overlying soft tissue defect which extends into the fracture. Foot MRI 09/19/17 00:00 CONCLUSION: Nearly all of the calcaneus is involved by osteomyelitis. A large fracture cleft has developed as above. There is gas in the soft tissues, fracture cleft, subtalar joint and focally in the talus adjacent to the sinus Tarsi. No definite talar osteomyelitis. Aorta w/Runoff CTA 09/19/17 09:45 CONCLUSION: 1. The examination demonstrates normal inflow and runoff to both lower extremities. 2. There is gas diffusely throughout the soft tissues of the right foot and ankle concerning for infection. Chest X-Ray 09/20/17 12:02 CONCLUSION: Bilateral areas of consolidation being worse on the left. These have progressed since the prior exam. Objective Remarks: GENERAL: Patient is 52 yo lying in bed intubated and sedated SKIN: Warm and dry. HEAD: Normocephalic. EYES: No scleral icterus. No injection or drainage. NECK: Supple, trachea midline. No JVD or lymphadenopathy. Orally intubated CARDIOVASCULAR: Regular rate and rhythm without murmurs, gallops, or rubs. RESPIRATORY: Breath sounds equal bilaterally. No accessory muscle use. GASTROINTESTINAL: Abdomen soft, non-tender, nondistended. MUSCULOSKELETAL: + 1 edema on left, right BKA. Neuro: Sedated. Assessment and Plan - Problem List (1) Septic shock Code(s): A41.9 - Sepsis, unspecified organism; R65.21 - Severe sepsis with septic shock Status: Acute (2) Hyperglycemia Code(s): R73.9 - Hyperglycemia, unspecified Status: Acute (3) Acute osteomyelitis of right calcaneus Code(s): M86.171 - Other acute osteomyelitis, right ankle and foot Status: Acute (4) DM (diabetes mellitus) Code(s): E11.9 - Type 2 diabetes mellitus without complications Status: Acute - Assessment and Plan Plan: NEURO: Pain secondary to R foot osteomyelitis On Versed and Fentanyl infusion for sedation. Daily sedation vacation. Monitor neuro status On Ofirmev and morphine as needed for pain. RESP: Prior tobacco abuse Continue with vent support keep sats >92% On PRVC RR 16, TV 400, IT:1.0, PEEP:5, FIO2 40% Bronchodilators, ICU vent bundle. CXR post intubation showed improved aeration left lung, diffuse airspace disease Continue diuretics-Lasix 40mg IV daily CV: Septic shock- Resolved Monitor HR and BP keep MAP>65mmHg Lactic acid: 1.2 Echo showed EF 65-70% GI: On Glucerna 1.5 with goal rate 45ml/hr Protonix 40mg daily for GI prophylaxis FEN/RENAL: MARIO- Resolved Monitor renal function, I/O's, electrolytes replacement per protocol Continue Lasix 40mg daily. Will need K replacement today ID: [id number] Septic shock Right foot osteomyelitis Continue vancomycin and Zosyn. ID is following, Diflucan for UTI Monitor for signs of infections ( Fever, WBC) WBC is trending down Podiatry and vascular surgery ( Dr. Lockett) are following s/p right BKA on 09/20 Check sputum cx 09/20 Wound culture: NGTD BC 09/19: NGTD BC 09/18 02/22 bottles Group B beta strep Urine cx 09/18: C. [place] HEME: Monitor CBC ENDO: Diabetes mellitus Increase SSI to medium scale for glycemic control PROPH:Protonix for stress ulcer prophylaxis not on chemical AC prophylaxis due to anemia and procedures s/p Right BKA 09/20 ACCESS: Right IJ central venous line placed 09/18, peripheral IV's Full code Level 3
[2017-09-21] MEDS ORDERED: Pharmacy Ordered Lab Info OTHER ONE (07:45)
--- NOTE | 2017-09-21 07:47 | XR ---
EXAM DATE: 09/21/2017 7:43 AM EDT AGE/SEX: 52 years / Female INDICATIONS: Respiratory failure. CLINICAL DATA: This is the patient's subsequent encounter. Patient reports that signs and symptoms h ave been present for 4 - 6 days and indicates a pain score of Nonresponsive. MEDICAL/SURGICAL HISTORY: . Diabetes. Hypertension None. COMPARISON: . FINDINGS: Stable ETT and right IJ central line. Interval placement of NGT coursing beyond the GE junction with tip omitted from the image. Persistent patchy diffuse bilateral airspace disease. Cardiomediastinal c ontours are stable. Remainder of the exam is unchanged. CONCLUSION: 1. Stable ETT and right IJ central line. NGT beyond the GE junction. 2. Stable diffuse patchy bilateral airspace disease. 3. No significant interval change. Electronically signed by: Jefferson Sapp MD 09/21/2017 7:45 AM EDT
[2017-09-21 07:56] LABS: Magnesium 1.5 mg/dL (1.5-2.5); Phosphorus 4.4 mg/dL (2.5-4.9)
[2017-09-21] MEDS: Pantoprazole Inj 40 MG Vial IV.PUSH SCH (08:20)
[2017-09-21] MEDS: Senna/Docusate Sodium 8.6/50 MG Tablet PO SCH ×2 (08:21→20:22)
[2017-09-21] MEDS: Mupirocin 2% Nasal Oint Topical Syringe EACH NARE SCH ×2 (08:21→20:22)
[2017-09-21] MEDS: Vancomycin Inj 1,000 MG in Sodium Chlor 0.9% Inj 250 ML IV.SIG SCH (08:21)
[2017-09-21] MEDS: Potassium Chlor 40 mEq Premix 40 MEQ/100 ML PIGGYBACK IV.SIG PRN ×2 (08:40→10:41)
--- NOTE | 2017-09-21 12:33 | P.DIET ---
Nutritional Evaluation Type of nutrition evaluation: initial Nutrition consult regarding: Tube Feeding Objective - Diagnosis DM Foot Infection - Objective Part of Body Amputated: Right below knee (6%) [place] body weight: 59 kg (Adjusted for R BKA) Body Weight Used for Calculations: IBW (AdjIBW) Energy Needs - Lower Range (kCal/kg): 28 Energy Needs - Upper Range (kCal/kg): 33 Lower Limit kCal/kg (kCals): 1,652 Upper Limit kCal/kg (kCals): 1,947 Lower Limit Protein Factor (Grams per Kg): 1.2 Upper Limit Protein Factor (Grams per Kg): 1.5 Lower Protein Needs (Protein): 71 Upper Protein Needs (Protein): 89 Dietitian Reviewed in Medical Record: Current diet, Curent medications, Intake & Output, Labs, Medical history, Wound/DTI Diet Order: TF only Objective Comments: PMH: Hep C, HTN, DM, R Heel Ulcer-Osteomyelitis dx 08/24/17 Meds include: Fentanyl, Versed, Lasix Labs include: K+ 3.0, Cr 1.02, Glu 282, POC Glu 284, 297, 319 Assessment Assessment: Pt at nutritional risk r/t current clinical status. Pt intubated and sedated s/ p R BKA on 09/20. Pt admitted with R heel ulcer, recent dx of osteomyelitis. TF Glucerna 1.5 with goal rate 45 ml/hr per MD. To best meet pt's nutritional needs , recommend goal rate of 50 ml/hr to provide 1800kcals, 99gms protein and 911mls free water. Will monitor TF tolerance, clinical course. Recommendations: TF Glucerna 1.5 with recommended goal rate of 50 ml/hr to meet pt's needs. Dietitian to Monitor: Lab values, Glucose level, Tube feeding tolerance, Weight change, Wound/skin status, Medical course
--- NOTE | 2017-09-21 13:04 | P.PNID ---
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 She remains on the ventilator because she could not be extubated. She became very agitated. Currently she is sedated. Afebrile. Wound culture is pending. Blood culture has Group B strep. WBC has decreased. This is a 52-year-old white female who was admitted to the hospital after she presented with pain in her right foot. The patient was in the hospital between 08/21 and 08/29 and was being treated for diabetic foot ulcer with MRSA infection of the right foot. She states that the problem began approximately 2 weeks prior, and she was seen by the guest services representative and had debridement and worsened. She left the hospital against medical advice on 08/29/2017. She states that she had to get back to work because she needed the money to pay her rent. However, she was unable to work and eventually presented to the emergency department because of worsening of the wound with swelling and redness of the foot. Her white blood cell count was 20.5 in the emergency department with 17% bands, and she had an abnormal urinalysis. Her heart rate was 121 and temperature was 99.1 on admission. Her blood sugar was greater than 600. The patient is currently receiving Levophed. She is awake and alert. X-ray of the foot shows fracture deformity of the calcaneus with a large overlying soft tissue defect extending into the fracture. Lines: peripheral line without evidence of infection. Past Medical History: PAST MEDICAL HISTORY: Diabetes mellitus, hypertension, hepatitis C, and diabetic neuropathy. Allergies/Adverse Reactions: Allergies No Known Allergies Allergy (Unverified 08/02/17 06:11) Objective Vital Signs 09/20/17 13:00 09/20/17 13:30 09/20/17 13:35 Temperature Pulse Rate 101 H 102 H Respiratory Rate 11 L 13 Blood Pressure 106/56 L 114/58 L Pulse Oximetry 93 L 93 L 96 09/20/17 14:00 09/20/17 14:30 09/20/17 15:00 Temperature Pulse Rate 100 H 98 H 100 H Respiratory Rate 12 12 14 Blood Pressure 114/59 L 110/58 L 113/61 Pulse Oximetry 95 96 09/20/17 15:09 09/20/17 15:30 09/20/17 16:00 Temperature Pulse Rate 97 H 98 H 109 H Respiratory Rate 17 12 34 H Blood Pressure 113/63 Pulse Oximetry 94 L 80 L 09/20/17 16:15 09/20/17 16:30 09/20/17 16:45 Temperature Pulse Rate 98 H 102 H 91 H Respiratory Rate 13 20 21 Blood Pressure 113/62 105/63 Pulse Oximetry 83 L 100 09/20/17 16:48 09/20/17 16:51 09/20/17 16:54 Temperature Pulse Rate 101 H 110 H 91 H Respiratory Rate 42 H 29 H 18 Blood Pressure 138/74 145/69 H 93/52 L Pulse Oximetry 96 97 09/20/17 16:57 09/20/17 17:00 09/20/17 17:03 Temperature Pulse Rate 101 H 91 H 91 H Respiratory Rate 33 H 17 14 Blood Pressure 136/75 104/59 L 103/60 Pulse Oximetry 100 100 100 09/20/17 17:06 09/20/17 17:09 09/20/17 17:12 Temperature Pulse Rate 91 H 92 H 99 H Respiratory Rate 14 21 25 H Blood Pressure 103/61 105/61 126/69 Pulse Oximetry 100 100 09/20/17 17:15 09/20/17 17:19 09/20/17 17:21 Temperature Pulse Rate 101 H 109 H 108 H Respiratory Rate 24 33 H 22 Blood Pressure 119/66 154/70 H 155/71 H Pulse Oximetry 80 L 97 09/20/17 17:24 09/20/17 17:28 09/20/17 17:29 Temperature Pulse Rate 116 H 117 H 105 H Respiratory Rate 24 30 H 16 Blood Pressure 151/74 H 144/83 H 132/70 Pulse Oximetry 96 91 L 98 09/20/17 17:30 09/20/17 17:33 09/20/17 17:36 Temperature Pulse Rate 98 H 95 H 93 H Respiratory Rate 16 16 16 Blood Pressure 118/60 118/55 L 95/52 L Pulse Oximetry 98 95 94 L 09/20/17 17:39 09/20/17 17:42 09/20/17 17:45 Temperature Pulse Rate 93 H 92 H 92 H Respiratory Rate 15 17 15 Blood Pressure 89/52 L 87/54 L 87/50 L Pulse Oximetry 94 L 94 L 94 L 09/20/17 17:48 09/20/17 17:51 09/20/17 17:54 Temperature Pulse Rate 92 H 92 H 92 H Respiratory Rate 20 16 15 Blood Pressure 83/51 L 82/52 L 81/51 L Pulse Oximetry 94 L 95 95 09/20/17 17:57 09/20/17 18:00 09/20/17 18:03 Temperature Pulse Rate 92 H 92 H 92 H Respiratory Rate Blood Pressure 81/51 L 83/53 L 83/51 L Pulse Oximetry 95 96 96 09/20/17 18:06 09/20/17 18:09 09/20/17 18:12 Temperature Pulse Rate 92 H 92 H 94 H Respiratory Rate Blood Pressure 86/53 L 85/52 L 84/52 L Pulse Oximetry 96 96 97 09/20/17 18:15 09/20/17 18:30 09/20/17 18:45 Temperature Pulse Rate 95 H 92 H 93 H Respiratory Rate 16 13 14 Blood Pressure 94/53 L 93/51 L 106/59 L Pulse Oximetry 96 95 97 09/20/17 19:00 09/20/17 20:00 09/20/17 20:38 Temperature 98.4 F Pulse Rate 92 H 86 87 Respiratory Rate 14 17 19 Blood Pressure 109/58 L 110/62 Pulse Oximetry 96 98 97 09/20/17 21:00 09/20/17 22:00 09/20/17 23:00 Temperature Pulse Rate 92 H 98 H 93 H Respiratory Rate 16 15 15 Blood Pressure 105/57 L 98/53 L 100/59 L Pulse Oximetry 96 93 L 93 L 09/20/17 23:28 09/21/17 00:00 09/21/17 01:00 Temperature Pulse Rate 93 H 99 H 98 H Respiratory Rate 18 16 16 Blood Pressure 100/55 L 105/58 L Pulse Oximetry 96 96 96 09/21/17 01:15 09/21/17 01:30 09/21/17 01:45 Temperature Pulse Rate 93 H 100 H 97 H Respiratory Rate 15 13 13 Blood Pressure 126/62 106/57 L Pulse Oximetry 97 96 96 09/21/17 02:00 09/21/17 02:15 09/21/17 02:30 Temperature Pulse Rate 96 H 97 H 96 H Respiratory Rate 13 13 15 Blood Pressure 109/59 L 111/59 L 107/59 L Pulse Oximetry 97 97 97 09/21/17 02:45 09/21/17 03:00 09/21/17 03:13 Temperature Pulse Rate 96 H 97 H 96 H Respiratory Rate 15 21 21 Blood Pressure 114/60 111/61 Pulse Oximetry 96 96 95 09/21/17 03:15 09/21/17 03:30 09/21/17 03:45 Temperature Pulse Rate 96 H 97 H 95 H Respiratory Rate 13 14 15 Blood Pressure 121/64 110/60 101/58 L Pulse Oximetry 96 95 94 L 09/21/17 04:00 09/21/17 04:15 09/21/17 04:30 Temperature Pulse Rate 101 H 103 H 105 H Respiratory Rate 16 16 15 Blood Pressure 111/62 112/60 113/60 Pulse Oximetry 97 96 97 09/21/17 04:45 09/21/17 05:00 09/21/17 05:15 Temperature Pulse Rate 104 H 106 H 106 H Respiratory Rate 15 21 16 Blood Pressure 112/60 112/60 111/60 Pulse Oximetry 97 97 88 L 09/21/17 05:30 09/21/17 05:45 09/21/17 06:00 Temperature Pulse Rate 108 H 109 H 113 H Respiratory Rate 17 15 43 H Blood Pressure 117/62 115/55 L 109/63 Pulse Oximetry 97 97 97 09/21/17 06:01 09/21/17 06:15 09/21/17 06:30 Temperature Pulse Rate 114 H 118 H 113 H Respiratory Rate 23 22 16 Blood Pressure 102/65 109/63 113/60 Pulse Oximetry 95 09/21/17 06:45 09/21/17 07:00 09/21/17 07:15 Temperature Pulse Rate 110 H 111 H 110 H Respiratory Rate 15 16 16 Blood Pressure 109/56 L 110/57 L 110/53 L Pulse Oximetry 88 L 95 95 09/21/17 07:31 09/21/17 08:00 09/21/17 09:00 Temperature 98.4 F Pulse Rate 109 H 112 H 107 H Respiratory Rate 18 25 H 15 Blood Pressure 108/57 L 98/52 L Pulse Oximetry 94 L 95 98 09/21/17 10:00 09/21/17 10:04 09/21/17 11:00 Temperature Pulse Rate 105 H 105 H Respiratory Rate 18 19 21 Blood Pressure 84/51 L 94/53 L Pulse Oximetry 98 97 100 Intake & Output 09/20/17 09/21/17 09/21/17 18:59 06:59 18:59 Intake Total 1050 / 1050 450 / 450 150 / 150 Output Total 100 / 100 Balance 950 / 950 450 / 450 150 / 150 Weight 76.5 kg Intake: IV 350 / 350 450 / 450 150 / 150 Versed Inj 50 mg In 50 ml @ 2 50 / 50 MG/HR 2 mls/hr IV.CONT TITRATE PRN Rx#:[id number] Diflucan 100 mg Premix Bag 50 50 / 50 ML @ 50 mls/hr IV.SIG Q24H RICARDO Rx#:[id number] Zosyn 2.25 GM Premix 50 ML @ 100 / 100 100 / 100 50 / 50 100 mls/hr IV.SIG Q6HR RICARDO Rx#: [id number] KCl 40 mEq Premix Inj 40 meq In 100 / 100 100 ml @ 50 mls/hr IV.SIG Q2H PRN Rx#:[id number] Vancomycin Inj 1,000 MG In NS 250 / 250 250 / 250 Inj 250 ML @ 250 mls/hr IV.SIG Q12H RICARDO Rx#:[id number] Anesthesia Amount 700 / 700 Output: Estimated Blood Loss 100 / 100 Other: Mode Setting Right Heel Continuous Right Leg Continuous 09/20/17 10:11 Wound - Leg Gram Stain - Final 09/20/17 10:11 Wound - Leg Wound Culture - Preliminary Streptococcus species 09/20/17 10:11 Other Acid Fast Bacilli Smear - Final No acid fast bacilli seen 09/20/17 10:11 Other Mycobacterial Culture - Pending 09/18/17 06:56 Blood - Peripheral Aerobic Blood Culture - Final Group B beta Strep 09/18/17 06:56 Blood - Peripheral Anaerobic Blood Culture - Preliminary No growth in 3 days 09/19/17 11:53 Blood - Peripheral Aerobic Blood Culture - Preliminary No growth in 2 days 09/19/17 11:53 Blood - Peripheral Anaerobic Blood Culture - Preliminary No growth in 2 days 09/19/17 11:58 Blood - Peripheral Aerobic Blood Culture - Preliminary No growth in 2 days 09/19/17 11:58 Blood - Peripheral Anaerobic Blood Culture - Preliminary No growth in 2 days 09/18/17 04:05 Blood - Peripheral Aerobic Blood Culture - Preliminary No growth in 3 days 09/18/17 04:05 Blood - Peripheral Anaerobic Blood Culture - Preliminary No growth in 3 days 09/20/17 10:11 Other Fungal Smear - Final No fungal elements seen 09/20/17 10:11 Other Fungal Culture - Pending 09/18/17 09:45 Catheterized Urine Urine Culture - Final Tal[facility] glabrata [facility] - Hematology Results 09/20/17 09/21/17 05:00 05:20 WBC 11.1 H 10.1 RBC 3.55 L 3.30 L Hgb 10.2 L 9.5 L Hct 31.0 L 29.0 L MCV 87.5 88.0 MCH 28.6 28.8 MCHC 32.7 32.7 RDW 14.9 15.1 Plt Count 223 221 MPV 9.7 9.9 Neut % (Auto) 77.3 H 68.7 Lymph % (Auto) 16.7 25.5 [place] % (Auto) 4.8 5.0 Eos % (Auto) 0.6 0.5 Baso % (Auto) 0.6 0.3 Neut # (Auto) 8.6 H 6.9 Lymph # (Auto) 1.9 2.6 [place] # (Auto) 0.5 0.5 Eos # (Auto) 0.1 0.1 Baso # (Auto) 0.1 0.0 WBC Differential . . Differential Comment Auto diff final Auto diff final Lab - Chemistry Results 09/19/17 09/19/17 09/20/17 16:12 20:50 00:56 Sodium Potassium Chloride Carbon Dioxide Anion Gap BUN Creatinine Estimated GFR POC Glucose 145 H 96 102 Random Glucose Calcium Phosphorus Magnesium Total Bilirubin AST ALT Alkaline Phosphatase Total Protein Albumin 09/20/17 09/20/17 09/20/17 05:00 05:17 06:27 Sodium 143 Potassium 3.8 Chloride 111 H Carbon Dioxide 23.2 Anion Gap 9 BUN 18 Creatinine 0.75 Estimated GFR 81 L POC Glucose 67 L 134 H Random Glucose 62 L Calcium 7.7 L Phosphorus 3.0 Magnesium 1.7 Total Bilirubin 1.0 AST 17 ALT 10 Alkaline Phosphatase 392 H Total Protein 6.6 Albumin 1.3 L 09/20/17 09/20/17 09/20/17 07:35 08:25 11:03 Sodium Potassium Chloride Carbon Dioxide Anion Gap BUN Creatinine Estimated GFR POC Glucose 133 H 109 133 H Random Glucose Calcium Phosphorus Magnesium Total Bilirubin AST ALT Alkaline Phosphatase Total Protein Albumin 09/20/17 09/20/17 09/20/17 12:01 17:14 20:23 Sodium Potassium Chloride Carbon Dioxide Anion Gap BUN Creatinine Estimated GFR POC Glucose 136 H 217 H 266 H Random Glucose Calcium Phosphorus Magnesium Total Bilirubin AST ALT Alkaline Phosphatase Total Protein Albumin 09/20/17 09/21/17 09/21/17 20:30 02:46 05:20 Sodium 142 Potassium 3.8 3.0 L D Chloride 106 Carbon Dioxide 27.4 Anion Gap 9 BUN 18 Creatinine 1.02 H Estimated GFR 57 L POC Glucose 284 H Random Glucose 282 H D Calcium 7.8 L Phosphorus Magnesium Total Bilirubin AST ALT Alkaline Phosphatase Total Protein Albumin 09/21/17 09/21/17 09/21/17 05:20 06:23 07:55 Sodium Potassium Chloride Carbon Dioxide Anion Gap BUN Creatinine Estimated GFR POC Glucose 297 H 319 H Random Glucose Calcium Phosphorus 4.4 D Magnesium 1.5 Total Bilirubin AST ALT Alkaline Phosphatase Total Protein Albumin 09/21/17 11:54 Sodium Potassium Chloride Carbon Dioxide Anion Gap BUN Creatinine Estimated GFR POC Glucose 216 H Random Glucose Calcium Phosphorus Magnesium Total Bilirubin AST ALT Alkaline Phosphatase Total Protein Albumin Imaging: ITS Impressions Foot X-Ray 09/17/17 02:18 CONCLUSION: 1. Fracture deformity of the calcaneus with large overlying soft tissue defect which extends into the fracture. Foot MRI 09/19/17 00:00 CONCLUSION: Nearly all of the calcaneus is involved by osteomyelitis. A large fracture cleft has developed as above. There is gas in the soft tissues, fracture cleft, subtalar joint and focally in the talus adjacent to the sinus Tarsi. No definite talar osteomyelitis. Aorta w/Runoff CTA 09/19/17 09:45 CONCLUSION: 1. The examination demonstrates normal inflow and runoff to both lower extremities. 2. There is gas diffusely throughout the soft tissues of the right foot and ankle concerning for infection. Chest X-Ray 09/21/17 07:15 CONCLUSION: 1. Stable ETT and right IJ central line. NGT beyond the GE junction. 2. Stable diffuse patchy bilateral airspace disease. 3. No significant interval change. Physical Exam: PHYSICAL EXAMINATION: GENERAL: No acute distress. HEENT: The head is atraumatic. Extraocular movements are grossly intact. Pupils reactive to light. No icterus. Oropharynx: Moist mucosa. No visible lesions. NECK: Supple without adenopathy or swelling. LUNGS: Clear to auscultation. HEART: Regular S1 and S2. No murmurs heard. ABDOMEN: Bowel sounds present. Soft and nontender. EXTREMITIES: The right leg is amputated below the knee. Vacuum apparatus in place. Slight serous drainage. Mild swelling at the right forearm. SKIN: No rash. NEUROLOGIC: Non focal. PSYCHIATRIC: Calm and cooperative. Assessment and Plan - Plan ASSESSMENT: 1. 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 New culture has strep species. 2. Diabetic foot infection. MRSA infection prior to amputation. 3. Sepsis due to group B beta strep. Indicated by tachycardia and elevated respiratory rate along with increased white blood cell count and abnormal urinalysis and foot wound culture. 4. Acute kidney disease. 5. Talia glabrata UTI. RECOMMENDATIONS: 1. Continue vancomycin. 2. Continue piperacillin/tazobactam. 3. Add micafungin for Talia glabrata. 4. Monitor renal function 5. Monitor clinical status.
[2017-09-21] MEDS: fentaNYL 10 mcg/mL Premix Drip 2,500 MCG/250 ML BAG IV.SIG PRN (13:44)
--- NOTE | 2017-09-21 14:42 | P.PNVS ---
Subjective Subjective/Hospital Course: 51-year-old female with diabetes mellitus and a huge necrotic ulcer of the left heel and necrosis of the left midfoot with exposed bone and osteomyelitis At this point there are no other options available then below-knee amputation and will go ahead with the same on Full consult dictated Thanks J 09/19/2017 Patient with peripheral vascular disease and gangrene of the right foot and non- salvageable lower leg for below-knee amputation tomorrow Second opinion rendered by Dr. York. We will do CTA with a runoff to evaluate for any other vascular occlusive disease that might jeopardize either the BKA or the other leg in the future. Based on clinical exam I do not believe the patient has any inflow occlusive disease and popliteal vessels are clearly patent Patient has dorsalis pedis and posterior tibial arteries bilateral and I do not believe she has a significant degree of outflow disease either. Majority of diseases is likely in patient's foot and small vessels. Patient scheduled to undergo tomorrow right below-knee amputation was depending on the appearance of the tissues might be carried out in 2 stages first is a guillotine amputation and second stage closure or in 1 stage if tissues appear to be adequate. 09/20/2017 Patient is status post right below-knee guillotine amputation and wound VAC placement. This is infected area and primary closure with a been ill advised Patient will have wound VAC until next week in about 5-6 days should be ready for a second stage procedure and closure of the below-knee stump 09/21/2017 Patient status post right BKA guillotine amputation wound VAC is in place and serosanguineous drainage remains in the canister Patient remains intubated for apparently last night with attempted extubation patient was agitated unmanageable and bucking the ventilator Plan to take patient back to the operating room for second stage BKA revision and closure probably Sunday Objective Vital Signs / I&O: Vital Signs 09/20/17 15:00 09/20/17 15:09 09/20/17 15:30 Temperature Pulse Rate 100 H 97 H 98 H Respiratory Rate 14 17 12 Blood Pressure 113/61 113/63 Pulse Oximetry 94 L 09/20/17 16:00 09/20/17 16:15 09/20/17 16:30 Temperature Pulse Rate 109 H 98 H 102 H Respiratory Rate 34 H 13 20 Blood Pressure 113/62 Pulse Oximetry 80 L 83 L 09/20/17 16:45 09/20/17 16:48 09/20/17 16:51 Temperature Pulse Rate 91 H 101 H 110 H Respiratory Rate 21 42 H 29 H Blood Pressure 105/63 138/74 145/69 H Pulse Oximetry 100 96 09/20/17 16:54 09/20/17 16:57 09/20/17 17:00 Temperature Pulse Rate 91 H 101 H 91 H Respiratory Rate 18 33 H 17 Blood Pressure 93/52 L 136/75 104/59 L Pulse Oximetry 97 100 100 09/20/17 17:03 09/20/17 17:06 09/20/17 17:09 Temperature Pulse Rate 91 H 91 H 92 H Respiratory Rate 14 14 21 Blood Pressure 103/60 103/61 105/61 Pulse Oximetry 100 100 100 09/20/17 17:12 09/20/17 17:15 09/20/17 17:19 Temperature Pulse Rate 99 H 101 H 109 H Respiratory Rate 25 H 24 33 H Blood Pressure 126/69 119/66 154/70 H Pulse Oximetry 80 L 09/20/17 17:21 09/20/17 17:24 09/20/17 17:28 Temperature Pulse Rate 108 H 116 H 117 H Respiratory Rate 22 24 30 H Blood Pressure 155/71 H 151/74 H 144/83 H Pulse Oximetry 97 96 91 L 09/20/17 17:29 09/20/17 17:30 09/20/17 17:33 Temperature Pulse Rate 105 H 98 H 95 H Respiratory Rate 16 16 16 Blood Pressure 132/70 118/60 118/55 L Pulse Oximetry 98 98 95 09/20/17 17:36 09/20/17 17:39 09/20/17 17:42 Temperature Pulse Rate 93 H 93 H 92 H Respiratory Rate 16 15 17 Blood Pressure 95/52 L 89/52 L 87/54 L Pulse Oximetry 94 L 94 L 94 L 09/20/17 17:45 09/20/17 17:48 09/20/17 17:51 Temperature Pulse Rate 92 H 92 H 92 H Respiratory Rate 15 20 16 Blood Pressure 87/50 L 83/51 L 82/52 L Pulse Oximetry 94 L 94 L 95 09/20/17 17:54 09/20/17 17:57 09/20/17 18:00 Temperature Pulse Rate 92 H 92 H 92 H Respiratory Rate 15 Blood Pressure 81/51 L 81/51 L 83/53 L Pulse Oximetry 95 95 96 09/20/17 18:03 09/20/17 18:06 09/20/17 18:09 Temperature Pulse Rate 92 H 92 H 92 H Respiratory Rate Blood Pressure 83/51 L 86/53 L 85/52 L Pulse Oximetry 96 96 96 09/20/17 18:12 09/20/17 18:15 09/20/17 18:30 Temperature Pulse Rate 94 H 95 H 92 H Respiratory Rate 16 13 Blood Pressure 84/52 L 94/53 L 93/51 L Pulse Oximetry 97 96 95 09/20/17 18:45 09/20/17 19:00 09/20/17 20:00 Temperature 98.4 F Pulse Rate 93 H 92 H 86 Respiratory Rate 14 14 17 Blood Pressure 106/59 L 109/58 L 110/62 Pulse Oximetry 97 96 98 09/20/17 20:38 09/20/17 21:00 09/20/17 22:00 Temperature Pulse Rate 87 92 H 98 H Respiratory Rate 19 16 15 Blood Pressure 105/57 L 98/53 L Pulse Oximetry 97 96 93 L 09/20/17 23:00 09/20/17 23:28 09/21/17 00:00 Temperature Pulse Rate 93 H 93 H 99 H Respiratory Rate 15 18 16 Blood Pressure 100/59 L 100/55 L Pulse Oximetry 93 L 96 96 09/21/17 01:00 09/21/17 01:15 09/21/17 01:30 Temperature Pulse Rate 98 H 93 H 100 H Respiratory Rate 16 15 13 Blood Pressure 105/58 L 126/62 Pulse Oximetry 96 97 96 09/21/17 01:45 09/21/17 02:00 09/21/17 02:15 Temperature Pulse Rate 97 H 96 H 97 H Respiratory Rate 13 13 13 Blood Pressure 106/57 L 109/59 L 111/59 L Pulse Oximetry 96 97 97 09/21/17 02:30 09/21/17 02:45 09/21/17 03:00 Temperature Pulse Rate 96 H 96 H 97 H Respiratory Rate 15 15 21 Blood Pressure 107/59 L 114/60 111/61 Pulse Oximetry 97 96 96 09/21/17 03:13 09/21/17 03:15 09/21/17 03:30 Temperature Pulse Rate 96 H 96 H 97 H Respiratory Rate 21 13 14 Blood Pressure 121/64 110/60 Pulse Oximetry 95 96 95 09/21/17 03:45 09/21/17 04:00 09/21/17 04:15 Temperature Pulse Rate 95 H 101 H 103 H Respiratory Rate 15 16 16 Blood Pressure 101/58 L 111/62 112/60 Pulse Oximetry 94 L 97 96 09/21/17 04:30 09/21/17 04:45 09/21/17 05:00 Temperature Pulse Rate 105 H 104 H 106 H Respiratory Rate 15 15 21 Blood Pressure 113/60 112/60 112/60 Pulse Oximetry 97 97 97 09/21/17 05:15 09/21/17 05:30 09/21/17 05:45 Temperature Pulse Rate 106 H 108 H 109 H Respiratory Rate 16 17 15 Blood Pressure 111/60 117/62 115/55 L Pulse Oximetry 88 L 97 97 09/21/17 06:00 09/21/17 06:01 09/21/17 06:15 Temperature Pulse Rate 113 H 114 H 118 H Respiratory Rate 43 H 23 22 Blood Pressure 109/63 102/65 109/63 Pulse Oximetry 97 09/21/17 06:30 09/21/17 06:45 09/21/17 07:00 Temperature Pulse Rate 113 H 110 H 111 H Respiratory Rate 16 15 16 Blood Pressure 113/60 109/56 L 110/57 L Pulse Oximetry 95 88 L 95 09/21/17 07:15 09/21/17 07:31 09/21/17 08:00 Temperature 98.4 F Pulse Rate 110 H 109 H 112 H Respiratory Rate 16 18 25 H Blood Pressure 110/53 L 108/57 L Pulse Oximetry 95 94 L 95 09/21/17 09:00 09/21/17 10:00 09/21/17 10:04 Temperature Pulse Rate 107 H 105 H Respiratory Rate 15 18 19 Blood Pressure 98/52 L 84/51 L Pulse Oximetry 98 98 97 09/21/17 11:00 09/21/17 12:00 09/21/17 13:00 Temperature 98.2 F Pulse Rate 105 H 109 H 116 H Respiratory Rate 21 17 21 Blood Pressure 94/53 L 100/56 L 90/54 L Pulse Oximetry 100 100 100 09/21/17 13:17 Temperature Pulse Rate Respiratory Rate 20 Blood Pressure Pulse Oximetry 100 Intake & Output 09/20/17 09/21/17 09/21/17 18:59 06:59 18:59 Intake Total 1050 / 1050 450 / 450 500 / 500 Output Total 100 / 100 Balance 950 / 950 450 / 450 500 / 500 Weight 76.5 kg Intake: IV 350 / 350 450 / 450 500 / 500 Versed Inj 50 mg In 50 ml @ 2 50 / 50 50 / 50 MG/HR 2 mls/hr IV.CONT TITRATE PRN Rx#:[id number] Diflucan 100 mg Premix Bag 50 50 / 50 ML @ 50 mls/hr IV.SIG Q24H RICARDO Rx#:[id number] Zosyn 2.25 GM Premix 50 ML @ 100 / 100 100 / 100 100 / 100 100 mls/hr IV.SIG Q6HR RICARDO Rx#: [id number] KCl 40 mEq Premix Inj 40 meq In 100 / 100 100 ml @ 50 mls/hr IV.SIG Q2H PRN Rx#:[id number] Vancomycin Inj 1,000 MG In NS 250 / 250 250 / 250 Inj 250 ML @ 250 mls/hr IV.SIG Q12H RICARDO Rx#:[id number] fentaNYL 10 mcg/mL Premix Drip 250 / 250 2,500 mcg In 250 ml @ 50 MCG/HR 5 mls/hr IV.SIG TITRATE PRN Rx #:[id number] Anesthesia Amount 700 / 700 Output: Estimated Blood Loss 100 / 100 Other: Mode Setting Right Heel Continuous Right Leg Continuous Laboratory Results - last 24 hr 09/20/17 09/20/17 09/20/17 17:14 17:32 20:23 WBC RBC Hgb Hct MCV MCH MCHC RDW Plt Count MPV Neut % (Auto) Lymph % (Auto) [place] % (Auto) Eos % (Auto) Baso % (Auto) Neut # (Auto) Lymph # (Auto) [place] # (Auto) Eos # (Auto) Baso # (Auto) WBC Differential Differential Comment Puncture Site Left radial Patient Temperature 98.6 O2 Saturation 95 ABG pH 7.35 L ABG pCO2 36 L ABG pO2 94 ABG HCO3 19 L ABG O2 Content 13.3 ABG Base Excess -5.4 L ABG Methemoglobin 1.1 Aroldo Test Present Hemoglobin 9.9 L Carboxyhemoglobin 1.3 O2 Delivery Device Ventilator Vent Setting Inspired O2 100 Critical Value No Sodium Potassium Chloride Carbon Dioxide Anion Gap BUN Creatinine Estimated GFR POC Glucose 217 H 266 H Random Glucose Calcium Phosphorus Magnesium Vancomycin Trough 09/20/17 09/21/17 09/21/17 20:30 02:46 05:20 WBC 10.1 RBC 3.30 L Hgb 9.5 L Hct 29.0 L MCV 88.0 MCH 28.8 MCHC 32.7 RDW 15.1 Plt Count 221 MPV 9.9 Neut % (Auto) 68.7 Lymph % (Auto) 25.5 [place] % (Auto) 5.0 Eos % (Auto) 0.5 Baso % (Auto) 0.3 Neut # (Auto) 6.9 Lymph # (Auto) 2.6 [place] # (Auto) 0.5 Eos # (Auto) 0.1 Baso # (Auto) 0.0 WBC Differential . Differential Comment Auto diff final Puncture Site Patient Temperature O2 Saturation ABG pH ABG pCO2 ABG pO2 ABG HCO3 ABG O2 Content ABG Base Excess ABG Methemoglobin Aroldo Test Hemoglobin Carboxyhemoglobin O2 Delivery Device Vent Setting Inspired O2 Critical Value Sodium Potassium 3.8 Chloride Carbon Dioxide Anion Gap BUN Creatinine Estimated GFR POC Glucose 284 H Random Glucose Calcium Phosphorus Magnesium Vancomycin Trough 09/21/17 09/21/17 09/21/17 05:20 05:20 06:23 WBC RBC Hgb Hct MCV MCH MCHC RDW Plt Count MPV Neut % (Auto) Lymph % (Auto) [place] % (Auto) Eos % (Auto) Baso % (Auto) Neut # (Auto) Lymph # (Auto) [place] # (Auto) Eos # (Auto) Baso # (Auto) WBC Differential Differential Comment Puncture Site Patient Temperature O2 Saturation ABG pH ABG pCO2 ABG pO2 ABG HCO3 ABG O2 Content ABG Base Excess ABG Methemoglobin Aroldo Test Hemoglobin Carboxyhemoglobin O2 Delivery Device Vent Setting Inspired O2 Critical Value Sodium 142 Potassium 3.0 L D Chloride 106 Carbon Dioxide 27.4 Anion Gap 9 BUN 18 Creatinine 1.02 H Estimated GFR 57 L POC Glucose 297 H Random Glucose 282 H D Calcium 7.8 L Phosphorus 4.4 D Magnesium 1.5 Vancomycin Trough 09/21/17 09/21/17 09/21/17 07:55 08:06 11:54 WBC RBC Hgb Hct MCV MCH MCHC RDW Plt Count MPV Neut % (Auto) Lymph % (Auto) [place] % (Auto) Eos % (Auto) Baso % (Auto) Neut # (Auto) Lymph # (Auto) [place] # (Auto) Eos # (Auto) Baso # (Auto) WBC Differential Differential Comment Puncture Site Patient Temperature O2 Saturation ABG pH ABG pCO2 ABG pO2 ABG HCO3 ABG O2 Content ABG Base Excess ABG Methemoglobin Aroldo Test Hemoglobin Carboxyhemoglobin O2 Delivery Device Vent Setting Inspired O2 Critical Value Sodium Potassium Chloride Carbon Dioxide Anion Gap BUN Creatinine Estimated GFR POC Glucose 319 H 216 H Random Glucose Calcium Phosphorus Magnesium Vancomycin Trough 23.9 H Microbiology 09/20/17 10:11 Gram Stain - Final Wound - Leg Wound Culture - Preliminary Streptococcus species 09/20/17 10:11 Acid Fast Bacilli Smear - Final Other No acid fast bacilli seen 09/18/17 06:56 Aerobic Blood Culture - Final Blood - Peripheral Group B beta Strep Anaerobic Blood Culture - Preliminary No growth in 3 days 09/19/17 11:53 Aerobic Blood Culture - Preliminary Blood - Peripheral No growth in 2 days Anaerobic Blood Culture - Preliminary No growth in 2 days 09/19/17 11:58 Aerobic Blood Culture - Preliminary Blood - Peripheral No growth in 2 days Anaerobic Blood Culture - Preliminary No growth in 2 days 09/18/17 04:05 Aerobic Blood Culture - Preliminary Blood - Peripheral No growth in 3 days Anaerobic Blood Culture - Preliminary No growth in 3 days 09/20/17 10:11 Fungal Smear - Final Other No fungal elements seen 09/18/17 09:45 Urine Culture - Final Catheterized Urine Talia glabrata Impressions Chest X-Ray 09/20/17 00:00 CONCLUSION: 1. ETT in good position. 2. Improved aeration of the left lung with persistent diffuse patchy bilateral airspace disease. Chest X-Ray 09/20/17 12:02 CONCLUSION: Bilateral areas of consolidation being worse on the left. These have progressed since the prior exam. Chest X-Ray 09/21/17 07:15 CONCLUSION: 1. Stable ETT and right IJ central line. NGT beyond the GE junction. 2. Stable diffuse patchy bilateral airspace disease. 3. No significant interval change.
[2017-09-22] MEDS: Insulin NovoLOG Aspart Correctional Sugar Inj SQ SCH ×5 (03:58→20:21)
[2017-09-22] MEDS: Chlorhexidine Gluconate 2% 1 Pack (2 Cloths) TOPICAL SCH (03:58)
[2017-09-22 04:26] LABS: Baso # (Auto) 0.1 th/mm3 (0.0-0.2); Baso % (Auto) 0.6 % (0.0-2.0); Eos # (Auto) 0.1 th/mm3 (0.0-0.4); Eos % (Auto) 0.8 % (0.0-4.0); Hematocrit 28.9 % (35.0-46.0); Hemoglobin 9.4 gm/dL (11.6-15.3); Lymph % (Auto) 29.4 % (9.0-44.0); Mean Corpuscular HGB Conc 32.4 % (32.0-36.0); Mean Corpuscular Hemoglobin 28.6 pg (27.0-34.0); Mean Corpuscular Volume 88.4 fL (80.0-100.0); Mean Platelet Volume 9.7 fL (7.0-11.0); Mono # (Auto) 0.6 th/mm3 (0.0-0.9); Mono % (Auto) 5.9 % (0.0-8.0); Neut # (Auto) 6.4 th/mm3 (1.8-7.7); Neut % (Auto) 63.3 % (16.0-70.0); Platelet Count 237 th/mm3 (150-450); Red Blood Count 3.27 mil/mm3 (4.00-5.30); Red Cell Distribution Width 15.3 % (11.6-17.2); White Blood Count 10.1 th/mm3 (4.0-11.0)
[2017-09-22 05:01] LABS: Alanine Aminotransferase 12 U/L (10-53); Albumin 1.3 g/dL (3.4-5.0); Alkaline Phosphatase 797 U/L (45-117); Anion Gap 10 meq/L (5-15); Aspartate Aminotransferase 50 U/L (15-37); Blood Urea Nitrogen 22 mg/dL (7-18); Calcium 8.1 mg/dL (8.5-10.1); Carbon Dioxide 25.7 meq/L (21.0-32.0); Chloride 108 meq/L (98-107); Glomerular Filtration Rate 36 mL/min (>89); Glucose,Random 218 mg/dL (74-106); Potassium 4.4 meq/L (3.5-5.1); Sodium 144 meq/L (136-145); Total Protein 7.2 g/dL (6.4-8.2)
[2017-09-22] MEDS: Piperacil/Tazo 2.25 GM Premix 50 ML IV.SIG SCH ×3 (05:21→17:50)
--- NOTE | 2017-09-22 06:00 | XR ---
EXAM DATE: 09/22/2017 4:40 AM EDT AGE/SEX: 52 years / Female INDICATIONS: Respiratory failure. CLINICAL DATA: This is the patient's subsequent encounter. Patient reports that signs and symptoms h ave been present for 3 days and indicates a pain score of Nonresponsive. MEDICAL/SURGICAL HISTORY: None. None. COMPARISON: [facility] – [place], CHEST 1V SINGLE AP, 09/21/2017. . FINDINGS: ET tube tip 2.2 cm above the damian. Right internal jugular catheter tip in the right atrium. Gastric tube traverses the [id number]. There is new consolidation in the right upper lobe with upward deviation of the minor fissure. No césar dence of mediastinal shift. Previously noted patchy airspace opacities in the left lung have improved with some mild residual opacities in the lower central region. CONCLUSION: 1. Interval development of right upper lobe consolidation with volume loss. 2. Improved infiltrates in the left lung with some residual airspace opacities lower central lung. Electronically signed by: Prudencio Valerio MD 09/22/2017 5:59 AM EDT
[2017-09-22] MEDS: Pantoprazole Inj 40 MG Vial IV.PUSH SCH (07:53)
[2017-09-22] MEDS: Mupirocin 2% Nasal Oint Topical Syringe EACH NARE SCH ×2 (08:02→20:22)
[2017-09-22] MEDS: Vancomycin Inj 1,250 MG in Sodium Chlor 0.9% Inj 250 ML IV.SIG SCH (08:03)
[2017-09-22] MEDS: Senna/Docusate Sodium 8.6/50 MG Tablet PO SCH ×2 (08:03→20:22)
--- NOTE | 2017-09-22 08:50 | P.PNCC ---
Subjective Subjective Remarks/Hospital Course: 52-year-old female with past medical history of hepatitis C, diabetes , hypertension, ulcer of the right heel who was admitted to [facility] service on 09/17/17 when she was admitted for right foot osteomyelitis. She had recently been admitted for this complaint 08/21 and left AMA on 08/29. During that admission she had an MRI of the foot 08/24/17 it was consistent with osteomyelitis. Wound cultures were positive for MRSA and group B strep. Blood cultures 08/21 were negative. She had normal ABIs. She was treated with Abx, surgical debridement by Dr. Valentine, and wound vac. She was readmitted for worsening pain in her heel. She had severe hyperglycemia without DKA. She was treated with an insulin drip and then transition to subcut. She has been hypotensive throughout the day and has been treated with fluid resuscitation. She has a 3.5 L of fluid bolus in addition to ~ 2 Liters of MIVF and meds. She has also received 2 units PRBC for Hgb 6.4 without obvious source of bleeding. She remains hypotensive and thus [facility] has been consulted to assist with hemodynamic management. She has been evaluated by podiatry, and R CAROLYN recommended. Awaiting vascular surgery consultation. She denies chest pain, shortness of breath, abdominal pain, nausea, vomiting, flank pain. 09/19 Patient is lying in bed in NAD. On room air oxygen. afebrile. Off Levophed. 09/20 Patient is lying in bed in NAD. For OR today for right BKA 09/21 Patient was intubated yesterday for resp failure. Sedated with Fentanyl and Versed . Afebrile. 09/22: Remains intubated sedated, on Versed and Fentanyl. CXR shows new RUL consolidation/volume loss. Plan for bronchoscopy later today. Also sent for sputum culture Objective Vital Signs / I&O: Vital Signs 09/21/17 09:00 09/21/17 10:00 09/21/17 10:04 Temperature Pulse Rate 107 H 105 H Respiratory Rate 15 18 19 Blood Pressure 98/52 L 84/51 L Pulse Oximetry 98 98 97 09/21/17 11:00 09/21/17 12:00 09/21/17 13:00 Temperature 98.2 F Pulse Rate 105 H 109 H 116 H Respiratory Rate 21 17 21 Blood Pressure 94/53 L 100/56 L 90/54 L Pulse Oximetry 100 100 100 09/21/17 13:17 09/21/17 14:00 09/21/17 15:00 Temperature Pulse Rate 108 H 113 H Respiratory Rate 20 21 20 Blood Pressure 93/51 L 104/59 L Pulse Oximetry 100 100 100 09/21/17 15:43 09/21/17 16:00 09/21/17 16:13 Temperature 99.3 F Pulse Rate 110 H 113 H Respiratory Rate 24 21 22 Blood Pressure 104/57 L Pulse Oximetry 100 100 09/21/17 17:00 09/21/17 18:00 09/21/17 19:00 Temperature Pulse Rate 113 H 109 H 104 H Respiratory Rate 25 H 24 24 Blood Pressure 92/53 L 93/55 L 96/52 L Pulse Oximetry 100 100 100 09/21/17 19:25 09/21/17 20:00 09/21/17 21:00 Temperature 100.7 F H Pulse Rate 105 H 105 H 103 H Respiratory Rate 24 24 23 Blood Pressure 95/54 L 98/54 L Pulse Oximetry 100 100 100 09/21/17 22:00 09/21/17 23:00 09/22/17 00:00 Temperature 98.8 F Pulse Rate 106 H 101 H 97 H Respiratory Rate 23 22 22 Blood Pressure 84/53 L 85/50 L 85/51 L Pulse Oximetry 100 100 100 09/22/17 00:09 09/22/17 01:00 09/22/17 02:00 Temperature Pulse Rate 96 H 98 H 96 H Respiratory Rate 20 23 23 Blood Pressure 85/53 L 83/53 L Pulse Oximetry 100 100 100 09/22/17 03:00 09/22/17 03:49 09/22/17 04:00 Temperature 99.3 F Pulse Rate 105 H 109 H 111 H Respiratory Rate 23 22 22 Blood Pressure 100/58 L 120/60 Pulse Oximetry 100 99 96 09/22/17 05:00 09/22/17 06:00 09/22/17 07:00 Temperature Pulse Rate 112 H 108 H 102 H Respiratory Rate 26 H 21 25 H Blood Pressure 113/58 L 113/56 L 108/56 L Pulse Oximetry 100 100 100 09/22/17 08:33 Temperature Pulse Rate Respiratory Rate 25 H Blood Pressure Pulse Oximetry 100 Intake & Output 08/03/18 08/04/18 08/04/18 18:59 06:59 18:59 Intake Total 1164 / 1164 1116 / 1116 Output Total 1060 / 1060 360 / 360 Balance 104 / 104 756 / 756 Weight 79.5 kg Intake: IV 750 / 750 610 / 610 Versed Inj 50 mg In 50 ml @ 2 100 / 100 50 / 50 MG/HR 2 mls/hr IV.CONT TITRATE PRN Rx#:[id number] Diflucan 100 mg Premix Bag 50 50 / 50 ML @ 50 mls/hr IV.SIG Q24H RICARDO Rx#:[id number] Mycamine Inj 100 MG In NS Inj 100 / 100 100 ML @ 100 mls/hr IV.SIG Q24H RICARDO Rx#:[id number] Zosyn 2.25 GM Premix 50 ML @ 100 / 100 150 / 150 100 mls/hr IV.SIG Q6HR RICARDO Rx#: [id number] KCl 40 mEq Premix Inj 40 meq In 200 / 200 100 ml @ 50 mls/hr IV.SIG Q2H PRN Rx#:[id number] Vancomycin Inj 1,000 MG In NS 250 / 250 Inj 250 ML @ 250 mls/hr IV.SIG Q12H RICARDO Rx#:[id number] fentaNYL 10 mcg/mL Premix Drip 250 / 250 2,500 mcg In 250 ml @ 50 MCG/HR 5 mls/hr IV.SIG TITRATE PRN Rx #:[id number] Tube Feeding 414 / 414 506 / 506 Output: Urine Amount (Catheter) 1050 / 1050 350 / 350 Indwelling Urethral Catheter 1050 / 1050 350 / 350 Wound Vac Amount 10 / 10 10 / 10 Right Leg 10 / 10 10 / 10 Other: Mode Setting Right Leg Continuous Continuous # Bowel Movements 0 Result Diagrams: 09/22/17 04:05 09/22/17 04:05 Objective Remarks: GENERAL: Patient is 52 yo lying in bed intubated and sedated SKIN: Warm and dry. HEAD: Normocephalic. EYES: No scleral icterus. No injection or drainage. NECK: Supple, trachea midline. No JVD or lymphadenopathy. Orally intubated CARDIOVASCULAR: Regular rate and rhythm without murmurs, gallops, or rubs. RESPIRATORY: Breath sounds equal bilaterally. No accessory muscle use. GASTROINTESTINAL: Abdomen soft, non-tender, nondistended. MUSCULOSKELETAL: + 1 edema on left, right BKA. wound VAC is in place Neuro: Sedated. On lightening sedation gets agitated moves extremities do not follow commands Assessment and Plan - Problem List (1) Septic shock Code(s): A41.9 - Sepsis, unspecified organism; R65.21 - Severe sepsis with septic shock Status: Acute (2) Hyperglycemia Code(s): R73.9 - Hyperglycemia, unspecified Status: Acute (3) Acute osteomyelitis of right calcaneus Code(s): M86.171 - Other acute osteomyelitis, right ankle and foot Status: Acute (4) DM (diabetes mellitus) Code(s): E11.9 - Type 2 diabetes mellitus without complications Status: Acute - Assessment and Plan Plan: NEURO: Pain secondary to R foot osteomyelitis On Versed and Fentanyl infusion for sedation. Daily sedation vacation. Start Precedex to facilitate weaning trials Monitor neuro status On Ofirmev and morphine as needed for pain. RESP: Prior tobacco abuse Continue with vent support keep sats >92% On PRVC RR 16, TV 400, IT:1.0, PEEP:5, FIO2 40% Bronchodilators, ICU vent bundle. CXR post intubation showed improved aeration left lung, diffuse airspace disease , chest x-ray today shows new right upper lobe consolidation versus atelectasis Plan for bronchoscopy today Continue diuretics-Lasix 40mg IV daily CV: Septic shock- Resolved Monitor HR and BP keep MAP>65mmHg Lactic acid: 1.2 Echo showed EF 65-70% GI: On Glucerna 1.5 with goal rate 45ml/hr Protonix 40mg daily for GI prophylaxis FEN/RENAL: MARIO Monitor renal function, I/O's, electrolytes replacement per protocol Continue Lasix 40mg daily. ID: [email or web address] Septic shock Right foot osteomyelitis Continue vancomycin and Zosyn. ID is following, Diflucan for UTI Monitor for signs of infections ( Fever, WBC) WBC is trending down Podiatry and vascular surgery ( Dr. Lockett) are following s/p right BKA on 09/20 Check sputum cx, Bronch with BAL today 09/20 Wound culture: GBS BC 09/19: NGTD BC 09/18 02/22 bottles Group B beta strep Urine cx 09/18: C. Glabrata HEME: Monitor CBC ENDO: Diabetes mellitus Increase SSI to medium scale for glycemic control PROPH:Protonix for stress ulcer prophylaxis not on chemical AC prophylaxis due to anemia and procedures s/p Right BKA 09/20 ACCESS: Right IJ central venous line placed 09/18, peripheral IV's Full code Level 3 Code Status: Full
[2017-09-22] MEDS: Midazolam 50 MG/50 ML Inj 50 MG/50 ML BAG IV.CONT PRN ×3 (10:10→22:17)
--- NOTE | 2017-09-22 11:45 | P.PNID ---
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 She remains on the ventilator. On CPAP. Currently she is sedated. Afebrile. Wound culture has group B strep. Blood culture has Group B strep. This is a 52-year-old white female who was admitted to the hospital after she presented with pain in her right foot. The patient was in the hospital between 08/21 and 08/29 and was being treated for diabetic foot ulcer with MRSA infection of the right foot. She states that the problem began approximately 2 weeks prior, and she was seen by the supervisor lamp shades and had debridement and worsened. She left the hospital against medical advice on 08/29/2017. She states that she had to get back to work because she needed the money to pay her rent. However, she was unable to work and eventually presented to the emergency department because of worsening of the wound with swelling and redness of the foot. Her white blood cell count was 20.5 in the emergency department with 17% bands, and she had an abnormal urinalysis. Her heart rate was 121 and temperature was 99.1 on admission. Her blood sugar was greater than 600. The patient is currently receiving Levophed. She is awake and alert. X-ray of the foot shows fracture deformity of the calcaneus with a large overlying soft tissue defect extending into the fracture. Lines: peripheral line without evidence of infection. Past Medical History: PAST MEDICAL HISTORY: Diabetes mellitus, hypertension, hepatitis C, and diabetic neuropathy. Allergies/Adverse Reactions: Allergies No Known Allergies Allergy (Unverified 08/02/17 06:11) Objective Vital Signs 09/21/17 12:00 09/21/17 13:00 09/21/17 13:17 Temperature 98.2 F Pulse Rate 109 H 116 H Respiratory Rate 17 21 20 Blood Pressure 100/56 L 90/54 L Pulse Oximetry 100 100 100 09/21/17 14:00 09/21/17 15:00 09/21/17 15:43 Temperature Pulse Rate 108 H 113 H 110 H Respiratory Rate 21 20 24 Blood Pressure 93/51 L 104/59 L Pulse Oximetry 100 100 09/21/17 16:00 09/21/17 16:13 09/21/17 17:00 Temperature 99.3 F Pulse Rate 113 H 113 H Respiratory Rate 21 22 25 H Blood Pressure 104/57 L 92/53 L Pulse Oximetry 100 100 100 09/21/17 18:00 09/21/17 19:00 09/21/17 19:25 Temperature Pulse Rate 109 H 104 H 105 H Respiratory Rate 24 24 24 Blood Pressure 93/55 L 96/52 L Pulse Oximetry 100 100 100 09/21/17 20:00 09/21/17 21:00 09/21/17 22:00 Temperature 100.7 F H Pulse Rate 105 H 103 H 106 H Respiratory Rate 24 23 23 Blood Pressure 95/54 L 98/54 L 84/53 L Pulse Oximetry 100 100 100 09/21/17 23:00 09/22/17 00:00 09/22/17 00:09 Temperature 98.8 F Pulse Rate 101 H 97 H 96 H Respiratory Rate 22 22 20 Blood Pressure 85/50 L 85/51 L Pulse Oximetry 100 100 100 09/22/17 01:00 09/22/17 02:00 09/22/17 03:00 Temperature Pulse Rate 98 H 96 H 105 H Respiratory Rate 23 23 23 Blood Pressure 85/53 L 83/53 L 100/58 L Pulse Oximetry 100 100 100 09/22/17 03:49 09/22/17 04:00 09/22/17 05:00 Temperature 99.3 F Pulse Rate 109 H 111 H 112 H Respiratory Rate 22 22 26 H Blood Pressure 120/60 113/58 L Pulse Oximetry 99 96 100 09/22/17 06:00 09/22/17 07:00 09/22/17 08:00 Temperature 99.9 F H Pulse Rate 108 H 102 H 103 H Respiratory Rate 21 25 H 20 Blood Pressure 113/56 L 108/56 L 107/55 L Pulse Oximetry 100 100 100 09/22/17 08:33 09/22/17 09:00 09/22/17 10:00 Temperature Pulse Rate 107 H 102 H Respiratory Rate 25 H 24 22 Blood Pressure 103/58 L 98/57 L Pulse Oximetry 100 100 100 09/22/17 11:00 09/22/17 11:09 Temperature Pulse Rate 101 H Respiratory Rate 22 22 Blood Pressure Pulse Oximetry Intake & Output 09/21/17 09/22/17 09/22/17 18:59 06:59 18:59 Intake Total 1164 / 1164 1116 / 1116 50 / 50 Output Total 1060 / 1060 360 / 360 Balance 104 / 104 756 / 756 50 / 50 Weight 79.5 kg Intake: IV 750 / 750 610 / 610 50 / 50 Versed Inj 50 mg In 50 ml @ 2 100 / 100 50 / 50 50 / 50 MG/HR 2 mls/hr IV.CONT TITRATE PRN Rx#:[id number] Diflucan 100 mg Premix Bag 50 50 / 50 ML @ 50 mls/hr IV.SIG Q24H RICARDO Rx#:[id number] Mycamine Inj 100 MG In NS Inj 100 / 100 100 ML @ 100 mls/hr IV.SIG Q24H RICARDO Rx#:[id number] Zosyn 2.25 GM Premix 50 ML @ 100 / 100 150 / 150 100 mls/hr IV.SIG Q6HR RICARDO Rx#: [id number] KCl 40 mEq Premix Inj 40 meq In 200 / 200 100 ml @ 50 mls/hr IV.SIG Q2H PRN Rx#:[id number] Vancomycin Inj 1,000 MG In NS 250 / 250 Inj 250 ML @ 250 mls/hr IV.SIG Q12H RICARDO Rx#:[id number] fentaNYL 10 mcg/mL Premix Drip 250 / 250 2,500 mcg In 250 ml @ 50 MCG/HR 5 mls/hr IV.SIG TITRATE PRN Rx #:[id number] Tube Feeding 414 / 414 506 / 506 Output: Urine Amount (Catheter) 1050 / 1050 350 / 350 Indwelling Urethral Catheter 1050 / 1050 350 / 350 Wound Vac Amount Right Leg Other: Mode Setting Right Leg Continuous Continuous Continuous # Bowel Movements 0 09/19/17 11:53 Blood - Peripheral Aerobic Blood Culture - Preliminary No growth in 3 days 09/19/17 11:53 Blood - Peripheral Anaerobic Blood Culture - Preliminary No growth in 3 days 09/19/17 11:58 Blood - Peripheral Aerobic Blood Culture - Preliminary No growth in 3 days 09/19/17 11:58 Blood - Peripheral Anaerobic Blood Culture - Preliminary No growth in 3 days 09/18/17 06:56 Blood - Peripheral Aerobic Blood Culture - Final Group B beta Strep 09/18/17 06:56 Blood - Peripheral Anaerobic Blood Culture - Preliminary No growth in 4 days 09/18/17 04:05 Blood - Peripheral Aerobic Blood Culture - Preliminary No growth in 4 days 09/18/17 04:05 Blood - Peripheral Anaerobic Blood Culture - Preliminary No growth in 4 days 09/20/17 10:11 Wound - Leg Gram Stain - Final 09/20/17 10:11 Wound - Leg Wound Culture - Final Group B beta Strep 09/20/17 10:11 Other Acid Fast Bacilli Smear - Final No acid fast bacilli seen 09/20/17 10:11 Other Mycobacterial Culture - Pending 09/20/17 10:11 Other Fungal Smear - Final No fungal elements seen 09/20/17 10:11 Other Fungal Culture - Pending 09/18/17 09:45 Catheterized Urine Urine Culture - Final Talia glabrata Lab - Hematology Results 09/21/17 09/22/17 05:20 04:05 WBC 10.1 10.1 RBC 3.30 L 3.27 L Hgb 9.5 L 9.4 L Hct 29.0 L 28.9 L MCV 88.0 88.4 MCH 28.8 28.6 MCHC 32.7 32.4 RDW 15.1 15.3 Plt Count 221 237 MPV 9.9 9.7 Neut % (Auto) 68.7 63.3 Lymph % (Auto) 25.5 29.4 [place] % (Auto) 5.0 5.9 Eos % (Auto) 0.5 0.8 Baso % (Auto) 0.3 0.6 Neut # (Auto) 6.9 6.4 Lymph # (Auto) 2.6 3.0 [place] # (Auto) 0.5 0.6 Eos # (Auto) 0.1 0.1 Baso # (Auto) 0.0 0.1 WBC Differential . . Differential Comment Auto diff final Auto diff final Lab - Chemistry Results 09/20/17 09/20/17 09/20/17 12:01 17:14 20:23 Sodium Potassium Chloride Carbon Dioxide Anion Gap BUN Creatinine Estimated GFR POC Glucose 136 H 217 H 266 H Random Glucose Calcium Phosphorus Magnesium Total Bilirubin AST ALT Alkaline Phosphatase Total Protein Albumin 09/20/17 09/21/17 09/21/17 20:30 02:46 05:20 Sodium 142 Potassium 3.8 3.0 L D Chloride 106 Carbon Dioxide 27.4 Anion Gap 9 BUN 18 Creatinine 1.02 H Estimated GFR 57 L POC Glucose 284 H Random Glucose 282 H D Calcium 7.8 L Phosphorus Magnesium Total Bilirubin AST ALT Alkaline Phosphatase Total Protein Albumin 09/21/17 09/21/17 09/21/17 05:20 06:23 07:55 Sodium Potassium Chloride Carbon Dioxide Anion Gap BUN Creatinine Estimated GFR POC Glucose 297 H 319 H Random Glucose Calcium Phosphorus 4.4 D Magnesium 1.5 Total Bilirubin AST ALT Alkaline Phosphatase Total Protein Albumin 09/21/17 09/21/17 09/21/17 11:54 14:27 15:37 Sodium Potassium 4.0 D Chloride Carbon Dioxide Anion Gap BUN Creatinine Estimated GFR POC Glucose 216 H 244 H Random Glucose Calcium Phosphorus Magnesium Total Bilirubin AST ALT Alkaline Phosphatase Total Protein Albumin 09/21/17 09/21/17 09/22/17 20:21 23:35 03:49 Sodium Potassium Chloride Carbon Dioxide Anion Gap BUN Creatinine Estimated GFR POC Glucose 268 H 247 H 215 H Random Glucose Calcium Phosphorus Magnesium Total Bilirubin AST ALT Alkaline Phosphatase Total Protein Albumin 09/22/17 09/22/17 04:05 07:33 Sodium 144 Potassium 4.4 Chloride 108 H Carbon Dioxide 25.7 Anion Gap 10 BUN 22 H Creatinine 1.53 H Estimated GFR 36 L POC Glucose 271 H Random Glucose 218 H Calcium 8.1 L Phosphorus Magnesium Total Bilirubin 0.5 AST 50 H ALT 12 Alkaline Phosphatase 797 H Total Protein 7.2 D Albumin 1.3 L Imaging: ITS Impressions Foot X-Ray 09/17/17 02:18 CONCLUSION: 1. Fracture deformity of the calcaneus with large overlying soft tissue defect which extends into the fracture. Foot MRI 09/19/17 00:00 CONCLUSION: Nearly all of the calcaneus is involved by osteomyelitis. A large fracture cleft has developed as above. There is gas in the soft tissues, fracture cleft, subtalar joint and focally in the talus adjacent to the sinus Tarsi. No definite talar osteomyelitis. Aorta w/Runoff CTA 09/19/17 09:45 CONCLUSION: 1. The examination demonstrates normal inflow and runoff to both lower extremities. 2. There is gas diffusely throughout the soft tissues of the right foot and ankle concerning for infection. Chest X-Ray 09/22/17 00:00 CONCLUSION: 1. Interval development of right upper lobe consolidation with volume loss. 2. Improved infiltrates in the left lung with some residual airspace opacities lower central lung. Physical Exam: PHYSICAL EXAMINATION: GENERAL: No acute distress. HEENT: The head is atraumatic. No icterus. Oropharynx: Moist mucosa. No visible lesions. NECK: Supple without adenopathy or swelling. LUNGS: Bilateral rhonchi. HEART: Regular S1 and S2. No murmurs heard. ABDOMEN: Bowel sounds present. Soft and nontender. EXTREMITIES: The right leg is amputated below the knee. Vacuum apparatus in place. Slight serous drainage. No CCE. SKIN: No rash. NEUROLOGIC: Non focal. PSYCHIATRIC: Unable to assess. Assessment and Plan - Plan ASSESSMENT: 1. 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 Group B strep. 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 2. Diabetic foot infection. MRSA infection prior to amputation. 3. Sepsis due to group B beta strep. Indicated by tachycardia and elevated respiratory rate along with increased white blood cell count and abnormal urinalysis and foot wound culture. 4. Acute kidney disease. 5. Talia glabrata UTI. RECOMMENDATIONS: 1. Continue vancomycin. 2. Continue piperacillin/tazobactam. 3. Continue micafungin for Talia glabrata. 4. Monitor renal function 5. Follow sputum culture. 6. Monitor clinical status.
--- NOTE | 2017-09-22 12:13 | P.PNVS ---
Subjective Subjective/Hospital Course: 51-year-old female with diabetes mellitus and a huge necrotic ulcer of the left heel and necrosis of the left midfoot with exposed bone and osteomyelitis At this point there are no other options available then below-knee amputation and will go ahead with the same on Full consult dictated Thanks J 09/19/2017 Patient with peripheral vascular disease and gangrene of the right foot and non- salvageable lower leg for below-knee amputation tomorrow Second opinion rendered by Dr. York. We will do CTA with a runoff to evaluate for any other vascular occlusive disease that might jeopardize either the BKA or the other leg in the future. Based on clinical exam I do not believe the patient has any inflow occlusive disease and popliteal vessels are clearly patent Patient has dorsalis pedis and posterior tibial arteries bilateral and I do not believe she has a significant degree of outflow disease either. Majority of diseases is likely in patient's foot and small vessels. Patient scheduled to undergo tomorrow right below-knee amputation was depending on the appearance of the tissues might be carried out in 2 stages first is a guillotine amputation and second stage closure or in 1 stage if tissues appear to be adequate. 09/20/2017 Patient is status post right below-knee guillotine amputation and wound VAC placement. This is infected area and primary closure with a been ill advised Patient will have wound VAC until next week in about 5-6 days should be ready for a second stage procedure and closure of the below-knee stump 09/21/2017 Patient status post right BKA guillotine amputation wound VAC is in place and serosanguineous drainage remains in the canister Patient remains intubated for apparently last night with attempted extubation patient was agitated unmanageable and bucking the ventilator Plan to take patient back to the operating room for second stage BKA revision and closure probably Sunday09/22/2017 Patient stable in the ICU Will undergo second stage closure of the below-knee amputation next week Serosanguineous drainage from the wound VAC Nothing to add to care further Objective Vital Signs / I&O: Vital Signs 09/21/17 13:00 09/21/17 13:17 09/21/17 14:00 Temperature Pulse Rate 116 H 108 H Respiratory Rate 21 20 21 Blood Pressure 90/54 L 93/51 L Pulse Oximetry 100 100 100 09/21/17 15:00 09/21/17 15:43 09/21/17 16:00 Temperature 99.3 F Pulse Rate 113 H 110 H 113 H Respiratory Rate 20 24 21 Blood Pressure 104/59 L 104/57 L Pulse Oximetry 100 100 09/21/17 16:13 09/21/17 17:00 09/21/17 18:00 Temperature Pulse Rate 113 H 109 H Respiratory Rate 22 25 H 24 Blood Pressure 92/53 L 93/55 L Pulse Oximetry 100 100 100 09/21/17 19:00 09/21/17 19:25 09/21/17 20:00 Temperature 100.7 F H Pulse Rate 104 H 105 H 105 H Respiratory Rate 24 24 24 Blood Pressure 96/52 L 95/54 L Pulse Oximetry 100 100 100 09/21/17 21:00 09/21/17 22:00 09/21/17 23:00 Temperature Pulse Rate 103 H 106 H 101 H Respiratory Rate 23 23 22 Blood Pressure 98/54 L 84/53 L 85/50 L Pulse Oximetry 100 100 100 09/22/17 00:00 09/22/17 00:09 09/22/17 01:00 Temperature 98.8 F Pulse Rate 97 H 96 H 98 H Respiratory Rate 22 20 23 Blood Pressure 85/51 L 85/53 L Pulse Oximetry 100 100 100 09/22/17 02:00 09/22/17 03:00 09/22/17 03:49 Temperature Pulse Rate 96 H 105 H 109 H Respiratory Rate 23 23 22 Blood Pressure 83/53 L 100/58 L Pulse Oximetry 100 100 99 09/22/17 04:00 09/22/17 05:00 09/22/17 06:00 Temperature 99.3 F Pulse Rate 111 H 112 H 108 H Respiratory Rate 22 26 H 21 Blood Pressure 120/60 113/58 L 113/56 L Pulse Oximetry 96 100 100 09/22/17 07:00 09/22/17 08:00 09/22/17 08:33 Temperature 99.9 F H Pulse Rate 102 H 103 H Respiratory Rate 25 H 20 25 H Blood Pressure 108/56 L 107/55 L Pulse Oximetry 100 100 100 09/22/17 09:00 09/22/17 10:00 09/22/17 11:00 Temperature Pulse Rate 107 H 102 H 101 H Respiratory Rate 24 22 22 Blood Pressure 103/58 L 98/57 L Pulse Oximetry 100 100 08/04/18 11:09 Temperature Pulse Rate Respiratory Rate 22 Blood Pressure Pulse Oximetry Intake & Output 09/21/17 09/22/17 09/22/17 18:59 06:59 18:59 Intake Total 1164 / 1164 1116 / 1116 50 / 50 Output Total 1060 / 1060 360 / 360 Balance 104 / 104 756 / 756 50 / 50 Weight 79.5 kg Intake: IV 750 / 750 610 / 610 50 / 50 Versed Inj 50 mg In 50 ml @ 2 100 / 100 50 / 50 50 / 50 MG/HR 2 mls/hr IV.CONT TITRATE PRN Rx#:[id number] Diflucan 100 mg Premix Bag 50 50 / 50 ML @ 50 mls/hr IV.SIG Q24H RICARDO Rx#:[id number] Mycamine Inj 100 MG In NS Inj 100 / 100 100 ML @ 100 mls/hr IV.SIG Q24H RICARDO Rx#:[id number] Zosyn 2.25 GM Premix 50 ML @ 100 / 100 150 / 150 100 mls/hr IV.SIG Q6HR RICARDO Rx#: [id number] KCl 40 mEq Premix Inj 40 meq In 200 / 200 100 ml @ 50 mls/hr IV.SIG Q2H PRN Rx#:[id number] Vancomycin Inj 1,000 MG In NS 250 / 250 Inj 250 ML @ 250 mls/hr IV.SIG Q12H RICARDO Rx#:[id number] fentaNYL 10 mcg/mL Premix Drip 250 / 250 2,500 mcg In 250 ml @ 50 MCG/HR 5 mls/hr IV.SIG TITRATE PRN Rx #:[id number] Tube Feeding 414 / 414 506 / 506 Output: Urine Amount (Catheter) 1050 / 1050 350 / 350 Indwelling Urethral Catheter 1050 / 1050 350 / 350 Wound Vac Amount 10 10 Right Leg 10 Other: Mode Setting Right Leg Continuous Continuous Continuous # Bowel Movements 0 Laboratory Results - last 24 hr 09/21/17 09/21/17 09/21/17 14:27 15:37 20:21 WBC RBC Hgb Hct MCV MCH MCHC RDW Plt Count MPV Neut % (Auto) Lymph % (Auto) [place] % (Auto) Eos % (Auto) Baso % (Auto) Neut # (Auto) Lymph # (Auto) [place] # (Auto) Eos # (Auto) Baso # (Auto) WBC Differential Differential Comment Sodium Potassium 4.0 D Chloride Carbon Dioxide Anion Gap BUN Creatinine Estimated GFR POC Glucose 244 H 268 H Random Glucose Calcium Total Bilirubin AST ALT Alkaline Phosphatase Total Protein Albumin 09/21/17 09/22/17 09/22/17 23:35 03:49 04:05 WBC 10.1 RBC 3.27 L Hgb 9.4 L Hct 28.9 L MCV 88.4 MCH 28.6 MCHC 32.4 RDW 15.3 Plt Count 237 MPV 9.7 Neut % (Auto) 63.3 Lymph % (Auto) 29.4 [place] % (Auto) 5.9 Eos % (Auto) 0.8 Baso % (Auto) 0.6 Neut # (Auto) 6.4 Lymph # (Auto) 3.0 [place] # (Auto) 0.6 Eos # (Auto) 0.1 Baso # (Auto) 0.1 WBC Differential . Differential Comment Auto diff final Sodium Potassium Chloride Carbon Dioxide Anion Gap BUN Creatinine Estimated GFR POC Glucose 247 H 215 H Random Glucose Calcium Total Bilirubin AST ALT Alkaline Phosphatase Total Protein Albumin 09/22/17 09/22/17 09/22/17 04:05 07:33 12:06 WBC RBC Hgb Hct MCV MCH MCHC RDW Plt Count MPV Neut % (Auto) Lymph % (Auto) [place] % (Auto) Eos % (Auto) Baso % (Auto) Neut # (Auto) Lymph # (Auto) [place] # (Auto) Eos # (Auto) Baso # (Auto) WBC Differential Differential Comment Sodium 144 Potassium 4.4 Chloride 108 H Carbon Dioxide 25.7 Anion Gap 10 BUN 22 H Creatinine 1.53 H Estimated GFR 36 L POC Glucose 271 H 221 H Random Glucose 218 H Calcium 8.1 L Total Bilirubin 0.5 AST 50 H ALT 12 Alkaline Phosphatase 797 H Total Protein 7.2 D Albumin 1.3 L Microbiology 09/19/17 11:53 Aerobic Blood Culture - Preliminary Blood - Peripheral No growth in 3 days Anaerobic Blood Culture - Preliminary No growth in 3 days 09/19/17 11:58 Aerobic Blood Culture - Preliminary Blood - Peripheral No growth in 3 days Anaerobic Blood Culture - Preliminary No growth in 3 days 09/18/17 06:56 Aerobic Blood Culture - Final Blood - Peripheral Group B beta Strep Anaerobic Blood Culture - Preliminary No growth in 4 days 09/18/17 04:05 Aerobic Blood Culture - Preliminary Blood - Peripheral No growth in 4 days Anaerobic Blood Culture - Preliminary No growth in 4 days 09/20/17 10:11 Gram Stain - Final Wound - Leg Wound Culture - Final Group B beta Strep 09/20/17 10:11 Acid Fast Bacilli Smear - Final Other No acid fast bacilli seen Impressions Chest X-Ray 09/20/17 00:00 CONCLUSION: 1. ETT in good position. 2. Improved aeration of the left lung with persistent diffuse patchy bilateral airspace disease. Chest X-Ray 09/20/17 12:02 CONCLUSION: Bilateral areas of consolidation being worse on the left. These have progressed since the prior exam. Chest X-Ray 09/21/17 07:15 CONCLUSION: 1. Stable ETT and right IJ central line. NGT beyond the GE junction. 2. Stable diffuse patchy bilateral airspace disease. 3. No significant interval change. Chest X-Ray 09/22/17 00:00 CONCLUSION: 1. Interval development of right upper lobe consolidation with volume loss. 2. Improved infiltrates in the left lung with some residual airspace opacities lower central lung.
[2017-09-22] MEDS ORDERED: fentaNYL Citrate Inj 250 MCG/5 ML Ampul IV.PUSH ONE (15:28)
--- NOTE | 2017-09-22 16:38 | P.PCN ---
Date of procedure: 09/22/17 Pre-op diagnosis: Right upper lobe collapse, respiratory failure Post-op diagnosis: same Procedure: Procedure: Therapeutic flexible fiberoptic bronchoscopy Operation: Timeout performed and suitable patient identification accomplished. The patient is orotracheally intubated and on controlled rate mechanical ventilation. The usual ICU invasive monitoring are in place. On continuous sedation with Versed and fentanyl, 50 mg of IV rocuronium given for neuromuscular paralysis. The flexible bronchoscope was delivered through a sealed side-port in the ventilator circuit near the endotracheal tube. The visualized trachea, main damian, right and left main bronchus appeared normal without significant secretions. The branching pattern is anatomically normal. The right upper lobe bronchus was partially obstructed with mucous plug which was lavaged and suctioned out. BAL performed and sample collected. Right lower lobe and right middle lobe without significant secretions or inflammation. Bronchoscope was then introduced into the left main bronchus and then left lower lobe. Mild amount of secretions suctioned out. Left upper lobe /lingula segmental bronchi without significant secretions or inflammation. Bronchoscope was withdrawn BAL sample collected from right main bronchus will be sent for further studies. Patient tolerated the procedure well, no blood loss. Anesthesia: GETA Surgeon: Oleksandr Reed Estimated blood loss (mL): 0 Pathology: other Condition: critical Disposition: ICU
[2017-09-23] MEDS: Piperacil/Tazo 2.25 GM Premix 50 ML IV.SIG SCH ×4 (00:13→17:37)
[2017-09-23] MEDS: Insulin NovoLOG Aspart Correctional Sugar Inj SQ SCH ×6 (00:13→20:31)
[2017-09-23] MEDS: Midazolam 50 MG/50 ML Inj 50 MG/50 ML BAG IV.CONT PRN (04:58)
--- NOTE | 2017-09-23 06:15 | XR ---
EXAM DATE: 09/23/2017 5:36 AM EDT AGE/SEX: 52 years / Female INDICATIONS: Shortness of breath. Possible respiratory disease. CLINICAL DATA: This is the patient's subsequent encounter. Patient reports that signs and symptoms h ave been present for 3 days and indicates a pain score of Nonresponsive. MEDICAL/SURGICAL HISTORY: . Diabetes. Hypertension . Right foot surgery COMPARISON: [facility], CHEST 1V SINGLE AP, 09/22/2017. . FINDINGS: ET tube tip well above the damian. Gastric tube traverses the [id number]. There is been reexpansio n of the right upper lobe with no residual infiltrate. Improved aeration of the left lung. Both hemid iaphragms well delineated. The heart is normal in size. CONCLUSION: 1. Resolved right upper lobe consolidation. 2. Continued improvement in left lung infiltrates with some residual in the retrocardiac region. Electronically signed by: Prudencio Valerio MD 09/23/2017 6:14 AM EDT
[2017-09-23 06:37] LABS: Hematocrit 28.1 % (35.0-46.0); Hemoglobin 9.2 gm/dL (11.6-15.3); Mean Corpuscular HGB Conc 32.6 % (32.0-36.0); Mean Corpuscular Hemoglobin 29.1 pg (27.0-34.0); Mean Corpuscular Volume 89.3 fL (80.0-100.0); Mean Platelet Volume 9.7 fL (7.0-11.0); Platelet Count 277 th/mm3 (150-450); Red Blood Count 3.15 mil/mm3 (4.00-5.30); Red Cell Distribution Width 15.3 % (11.6-17.2); White Blood Count 10.4 th/mm3 (4.0-11.0)
[2017-09-23 06:46] LABS: Alanine Aminotransferase 20 U/L (10-53); Albumin 1.3 g/dL (3.4-5.0); Anion Gap 7 meq/L (5-15); Aspartate Aminotransferase 55 U/L (15-37); Blood Urea Nitrogen 30 mg/dL (7-18); Calcium 8.3 mg/dL (8.5-10.1); Chloride 109 meq/L (98-107); Glomerular Filtration Rate 29 mL/min (>89); Glucose,Random 230 mg/dL (74-106); Magnesium 1.9 mg/dL (1.5-2.5); Potassium 3.9 meq/L (3.5-5.1); Sodium 146 meq/L (136-145)
[2017-09-23 06:49] LABS: Alkaline Phosphatase 671 U/L (45-117); Total Protein 7.3 g/dL (6.4-8.2)
[2017-09-23] MEDS: Pantoprazole Inj 40 MG Vial IV.PUSH SCH (07:57)
[2017-09-23] MEDS: Senna/Docusate Sodium 8.6/50 MG Tablet PO SCH ×2 (08:00→20:32)
[2017-09-23] MEDS: Mupirocin 2% Nasal Oint Topical Syringe EACH NARE SCH ×2 (08:00→20:31)
[2017-09-23] MEDS: Vancomycin Inj 1,250 MG in Sodium Chlor 0.9% Inj 250 ML IV.SIG SCH (08:00)
[2017-09-23] MEDS: fentaNYL 10 mcg/mL Premix Drip 2,500 MCG/250 ML BAG IV.SIG PRN (08:14)
--- NOTE | 2017-09-23 09:04 | P.PNCC ---
Subjective Subjective Remarks/Hospital Course: 52-year-old female with past medical history of hepatitis C, diabetes , hypertension, ulcer of the right heel who was admitted to [facility] service on 09/17/17 when she was admitted for right foot osteomyelitis. She had recently been admitted for this complaint 08/21 and left AMA on 08/29. During that admission she had an MRI of the foot 08/24/17 it was consistent with osteomyelitis. Wound cultures were positive for MRSA and group B strep. Blood cultures 08/21 were negative. She had normal ABIs. She was treated with Abx, surgical debridement by Dr. Valentine, and wound vac. She was readmitted for worsening pain in her heel. She had severe hyperglycemia without DKA. She was treated with an insulin drip and then transition to subcut. She has been hypotensive throughout the day and has been treated with fluid resuscitation. She has a 3.5 L of fluid bolus in addition to ~ 2 Liters of MIVF and meds. She has also received 2 units PRBC for Hgb 6.4 without obvious source of bleeding. She remains hypotensive and thus [facility] has been consulted to assist with hemodynamic management. She has been evaluated by podiatry, and R CAROLYN recommended. Awaiting vascular surgery consultation. She denies chest pain, shortness of breath, abdominal pain, nausea, vomiting, flank pain. 09/19 Patient is lying in bed in NAD. On room air oxygen. afebrile. Off Levophed. 09/20 Patient is lying in bed in NAD. For OR today for right BKA 09/21 Patient was intubated yesterday for resp failure. Sedated with Fentanyl and Versed . Afebrile. 09/22: Remains intubated sedated, on Versed and Fentanyl. CXR shows new RUL consolidation/volume loss. Plan for bronchoscopy later today. Also sent for sputum culture 09/23: Sedated with Versed and fentanyl infusions. Currently held patient remains obtunded on the vent. Today's chest x-ray shows resolution of the right upper lobe atelectasis after bronchoscopy yesterday. Tolerating spontaneous breathing trials. Creatinine is increased to 1.8 today, urine output adequate Objective Vital Signs / I&O: Vital Signs 09/22/17 09:00 09/22/17 10:00 09/22/17 11:00 Temperature Pulse Rate 107 H 102 H 101 H Respiratory Rate 24 22 21 Blood Pressure 103/58 L 98/57 L 100/56 L Pulse Oximetry 100 100 100 09/22/17 11:09 09/22/17 12:00 09/22/17 13:00 Temperature 99.1 F Pulse Rate 80 101 H Respiratory Rate 22 21 21 Blood Pressure 99/56 L 99/57 L Pulse Oximetry 100 100 09/22/17 14:00 09/22/17 15:00 09/22/17 15:56 Temperature Pulse Rate 100 H 98 H Respiratory Rate 27 H 24 22 Blood Pressure 107/59 L 109/65 Pulse Oximetry 100 100 100 09/22/17 16:00 09/22/17 17:00 09/22/17 18:00 Temperature 99.4 F Pulse Rate 98 H 105 H 99 H Respiratory Rate 23 23 20 Blood Pressure 133/78 98/57 L 101/59 L Pulse Oximetry 100 100 100 09/22/17 19:00 09/22/17 19:04 09/22/17 19:25 Temperature Pulse Rate 93 H 95 H Respiratory Rate 19 18 Blood Pressure 107/63 Pulse Oximetry 100 100 99 09/22/17 20:00 09/22/17 21:00 09/22/17 22:00 Temperature 98.8 F Pulse Rate 92 H 95 H 86 Respiratory Rate 17 19 19 Blood Pressure 100/57 L 113/60 144/83 H Pulse Oximetry 98 98 94 L 09/22/17 23:00 09/22/17 23:30 09/23/17 00:00 Temperature 100 F H Pulse Rate 100 H 92 H 102 H Respiratory Rate 19 17 19 Blood Pressure 130/71 135/71 Pulse Oximetry 99 98 09/23/17 01:00 09/23/17 01:11 09/23/17 02:00 Temperature Pulse Rate 95 H 102 H Respiratory Rate 18 18 20 Blood Pressure 121/63 117/63 Pulse Oximetry 98 98 98 09/23/17 03:00 09/23/17 04:00 09/23/17 04:01 Temperature Pulse Rate 93 H 96 H 96 H Respiratory Rate 17 19 Blood Pressure 108/60 137/87 Pulse Oximetry 99 98 09/23/17 05:00 09/23/17 06:00 09/23/17 07:00 Temperature 98.8 F Pulse Rate 96 H 101 H 92 H Respiratory Rate 17 21 17 Blood Pressure 137/78 122/68 124/71 Pulse Oximetry 96 09/23/17 08:00 09/23/17 08:36 Temperature 98.8 F Pulse Rate 96 H Respiratory Rate 18 17 Blood Pressure 141/80 H Pulse Oximetry 96 95 Intake & Output 09/22/17 09/23/17 09/23/17 18:59 06:59 18:59 Intake Total 1163.5 / 1163.5 721 / 721 300 / 300 Output Total 2054 / 2054 805 / 805 Balance -891.5 / -891.5 -84 / -84 300 / 300 Weight 75 kg Intake: IV 562.5 / 562.5 150 / 150 300 / 300 Versed Inj 50 mg In 50 ml @ 2 100 / 100 100 / 100 MG/HR 2 mls/hr IV.CONT TITRATE PRN Rx#:[id number] Mycamine Inj 100 MG In NS Inj 100 / 100 100 ML @ 100 mls/hr IV.SIG Q24H RICARDO Rx#:[id number] Zosyn 2.25 GM Premix 50 ML @ 100 / 100 50 / 50 50 / 50 100 mls/hr IV.SIG Q6HR RICARDO Rx#: [id number] Vancomycin Inj 1,250 MG In NS 262.5 / 262.5 Inj 250 ML @ 250 mls/hr IV.SIG Q24H RICARDO Rx#:[id number] fentaNYL 10 mcg/mL Premix Drip 250 / 250 2,500 mcg In 250 ml @ 50 MCG/HR 5 mls/hr IV.SIG TITRATE PRN Rx #:[id number] Tube Feeding 501 / 501 471 / 471 Water Bolus Amount 100 / 100 100 / 100 Output: Urine Amount (Catheter) 2049 800 / 800 Indwelling Urethral Catheter 2049 800 / 800 Wound Vac Amount 5 / 5 5 / 5 Right Leg 5 / 5 5 / 5 Other: Mode Setting Right Leg Continuous Continuous Continuous Date of Last Bowel Movement 09/22/17 09/23/17 09/23/17 # Bowel Movements 2 2 Result Diagrams: 09/23/17 06:00 09/23/17 06:00 Objective Remarks: GENERAL: Patient is 52 yo lying in bed intubated and sedated SKIN: Warm and dry. HEAD: Normocephalic. EYES: No scleral icterus. No injection or drainage. NECK: Supple, trachea midline. No JVD or lymphadenopathy. Orally intubated CARDIOVASCULAR: Regular rate and rhythm without murmurs, gallops, or rubs. RESPIRATORY: Breath sounds equal bilaterally. No accessory muscle use. No wheezes or crackles anteriorly GASTROINTESTINAL: Abdomen soft, non-tender, nondistended. MUSCULOSKELETAL: + 1 edema on left, right BKA. wound VAC is in place Neuro: Sedated. Appears to move all 4 extremities not following commands Assessment and Plan - Problem List (1) Septic shock Code(s): A41.9 - Sepsis, unspecified organism; R65.21 - Severe sepsis with septic shock Status: Acute (2) Hyperglycemia Code(s): R73.9 - Hyperglycemia, unspecified Status: Acute (3) Acute osteomyelitis of right calcaneus Code(s): M86.171 - Other acute osteomyelitis, right ankle and foot Status: Acute (4) DM (diabetes mellitus) Code(s): E11.9 - Type 2 diabetes mellitus without complications Status: Acute - Assessment and Plan Plan: NEURO: Metabolic encephalopathy Pain secondary to R foot osteomyelitis DC Versed, and continue fentanyl infusion for pain control Start Precedex to facilitate weaning trials Monitor neuro status On Ofirmev and morphine as needed for pain. RESP: Prior tobacco abuse Continue with vent support keep sats >92% On PRVC RR 16, TV 400, IT:1.0, PEEP:5, FIO2 40% Bronchodilators, ICU vent bundle. CXR post bronchoscopy today shows resolution of the right upper lobe infiltrate Spontaneous breathing trial today Continue diuretics-Lasix 40mg IV daily CV: Septic shock- Resolved Monitor HR and BP keep MAP>65mmHg Lactic acid: 1.2 Echo showed EF 65-70% IV Lasix 40 mg daily GI: On Glucerna 1.5 with goal rate 45ml/hr Protonix 40mg daily for GI prophylaxis FEN/RENAL: MARIO Monitor renal function, I/O's, electrolytes replacement per protocol Continue Lasix 40mg daily. Creatinine elevated 1.8 today continue to monitor daily ID: s/p Septic shock Right foot osteomyelitis Continue vancomycin and Zosyn. Micafungin for Talia glabrata UTI. ID is following Monitor for signs of infections ( Fever, WBC) WBC is trending down Podiatry and vascular surgery ( Dr. Lockett) are following s/p right BKA on 09/20 F/u Bronch with BAL, culture 09/20 Wound culture: GBS BC 09/19: NGTD BC 09/18 02/22 bottles Group B beta strep Urine cx 09/18: C. Glabrata HEME: Monitor CBC ENDO: Diabetes mellitus SSI for glycemic control PROPH:Protonix for stress ulcer prophylaxis not on chemical AC prophylaxis due to anemia and procedures s/p Right BKA 09/20. Start Heparin 5000 U sq q 12hrs ACCESS: Right IJ central venous line placed 09/18, peripheral IV's Full code Level 3
--- NOTE | 2017-09-23 13:18 | P.PNVS ---
Subjective Subjective/Hospital Course: 51-year-old female with diabetes mellitus and a huge necrotic ulcer of the left heel and necrosis of the left midfoot with exposed bone and osteomyelitis At this point there are no other options available then below-knee amputation and will go ahead with the same on Full consult dictated Thanks J 09/19/2017 Patient with peripheral vascular disease and gangrene of the right foot and non- salvageable lower leg for below-knee amputation tomorrow Second opinion rendered by Dr. York. We will do CTA with a runoff to evaluate for any other vascular occlusive disease that might jeopardize either the BKA or the other leg in the future. Based on clinical exam I do not believe the patient has any inflow occlusive disease and popliteal vessels are clearly patent Patient has dorsalis pedis and posterior tibial arteries bilateral and I do not believe she has a significant degree of outflow disease either. Majority of diseases is likely in patient's foot and small vessels. Patient scheduled to undergo tomorrow right below-knee amputation was depending on the appearance of the tissues might be carried out in 2 stages first is a guillotine amputation and second stage closure or in 1 stage if tissues appear to be adequate. 09/20/2017 Patient is status post right below-knee guillotine amputation and wound VAC placement. This is infected area and primary closure with a been ill advised Patient will have wound VAC until next week in about 5-6 days should be ready for a second stage procedure and closure of the below-knee stump 09/21/2017 Patient status post right BKA guillotine amputation wound VAC is in place and serosanguineous drainage remains in the canister Patient remains intubated for apparently last night with attempted extubation patient was agitated unmanageable and bucking the ventilator Plan to take patient back to the operating room for second stage BKA revision and closure probably Sunday09/22/2017 Patient stable in the ICU Will undergo second stage closure of the below-knee amputation next week Serosanguineous drainage from the wound VAC Nothing to add to care further 09/23/2017 Status post right below-knee amputation guillotine type stage I Wound VAC in place and serosanguineous drainage We will take patient to the operating room this week for second stage procedure and closure probably middle of the week Objective Vital Signs / I&O: Vital Signs 09/22/17 14:00 09/22/17 15:00 09/22/17 15:56 Temperature Pulse Rate 100 H 98 H Respiratory Rate 27 H 24 22 Blood Pressure 107/59 L 109/65 Pulse Oximetry 100 100 100 09/22/17 16:00 09/22/17 17:00 09/22/17 18:00 Temperature 99.4 F Pulse Rate 98 H 105 H 99 H Respiratory Rate 23 23 20 Blood Pressure 133/78 98/57 L 101/59 L Pulse Oximetry 100 100 100 09/22/17 19:00 09/22/17 19:04 09/22/17 19:25 Temperature Pulse Rate 93 H 95 H Respiratory Rate 19 18 Blood Pressure 107/63 Pulse Oximetry 100 100 99 09/22/17 20:00 09/22/17 21:00 09/22/17 22:00 Temperature 98.8 F Pulse Rate 92 H 95 H 86 Respiratory Rate 17 19 19 Blood Pressure 100/57 L 113/60 144/83 H Pulse Oximetry 98 98 94 L 09/22/17 23:00 09/22/17 23:30 09/23/17 00:00 Temperature 100 F H Pulse Rate 100 H 92 H 102 H Respiratory Rate 19 17 19 Blood Pressure 130/71 135/71 Pulse Oximetry 99 98 09/23/17 01:00 09/23/17 01:11 09/23/17 02:00 Temperature Pulse Rate 95 H 102 H Respiratory Rate 18 18 20 Blood Pressure 121/63 117/63 Pulse Oximetry 98 98 98 09/23/17 03:00 09/23/17 04:00 09/23/17 04:01 Temperature Pulse Rate 93 H 96 H 96 H Respiratory Rate 17 19 Blood Pressure 108/60 137/87 Pulse Oximetry 99 98 09/23/17 05:00 09/23/17 06:00 09/23/17 07:00 Temperature 98.8 F Pulse Rate 96 H 101 H 92 H Respiratory Rate 17 21 17 Blood Pressure 137/78 122/68 124/71 Pulse Oximetry 96 09/23/17 08:00 09/23/17 08:36 09/23/17 09:00 Temperature 98.8 F Pulse Rate 96 H 97 H Respiratory Rate 18 17 19 Blood Pressure 141/80 H 121/67 Pulse Oximetry 96 95 98 09/23/17 10:00 09/23/17 11:00 08/05/18 11:49 Temperature Pulse Rate 98 H 94 H Respiratory Rate 20 20 18 Blood Pressure 127/78 119/66 Pulse Oximetry 96 94 L 09/23/17 12:00 Temperature 99.0 F Pulse Rate 93 H Respiratory Rate 18 Blood Pressure 129/71 Pulse Oximetry 96 Intake & Output 09/22/17 09/23/17 09/23/17 18:59 06:59 18:59 Intake Total 1163.5 / 1163.5 721 / 721 300 / 300 Output Total 2054 / 2054 805 / 805 Balance -891.5 / -891.5 -84 / -84 300 / 300 Weight 75 kg Intake: IV 562.5 / 562.5 150 / 150 300 / 300 Versed Inj 50 mg In 50 ml @ 2 100 / 100 100 / 100 MG/HR 2 mls/hr IV.CONT TITRATE PRN Rx#:[id number] Mycamine Inj 100 MG In NS Inj 100 / 100 100 ML @ 100 mls/hr IV.SIG Q24H RICARDO Rx#:[id number] Zosyn 2.25 GM Premix 50 ML @ 100 / 100 50 / 50 50 / 50 100 mls/hr IV.SIG Q6HR RICARDO Rx#: [id number] Vancomycin Inj 1,250 MG In NS 262.5 / 262.5 Inj 250 ML @ 250 mls/hr IV.SIG Q24H RICARDO Rx#:[id number] fentaNYL 10 mcg/mL Premix Drip 250 / 250 2,500 mcg In 250 ml @ 50 MCG/HR 5 mls/hr IV.SIG TITRATE PRN Rx #:[id number] Tube Feeding 501 / 501 471 / 471 Water Bolus Amount 100 / 100 100 / 100 Output: Urine Amount (Catheter) 2049 800 / 800 Indwelling Urethral Catheter 2049 800 / 800 Wound Vac Amount 5 / 5 5 / 5 Right Leg 5 / 5 5 / 5 Other: Mode Setting Right Leg Continuous Continuous Continuous Date of Last Bowel Movement 09/22/17 09/23/17 09/23/17 # Bowel Movements 2 2 Laboratory Results - last 24 hr 09/22/17 09/22/17 09/22/17 16:40 19:53 23:44 WBC RBC Hgb Hct MCV MCH MCHC RDW Plt Count MPV Sodium Potassium Chloride Carbon Dioxide Anion Gap BUN Creatinine Estimated GFR POC Glucose 245 H 200 H 257 H Random Glucose Calcium Magnesium Total Bilirubin AST ALT Alkaline Phosphatase Total Protein Albumin 09/23/17 09/23/17 09/23/17 03:56 06:00 06:00 WBC 10.4 RBC 3.15 L Hgb 9.2 L Hct 28.1 L MCV 89.3 MCH 29.1 MCHC 32.6 RDW 15.3 Plt Count 277 MPV 9.7 Sodium 146 H Potassium 3.9 Chloride 109 H Carbon Dioxide 30.0 Anion Gap 7 BUN 30 H Creatinine 1.81 H Estimated GFR 29 L POC Glucose 259 H Random Glucose 230 H Calcium 8.3 L Magnesium 1.9 Total Bilirubin 0.4 AST 55 H ALT 20 Alkaline Phosphatase 671 H Total Protein 7.3 Albumin 1.3 L 09/23/17 09/23/17 07:39 11:24 WBC RBC Hgb Hct MCV MCH MCHC RDW Plt Count MPV Sodium Potassium Chloride Carbon Dioxide Anion Gap BUN Creatinine Estimated GFR POC Glucose 231 H 264 H Random Glucose Calcium Magnesium Total Bilirubin AST ALT Alkaline Phosphatase Total Protein Albumin Microbiology 09/22/17 16:30 Gram Stain - Final Bronchial - Right Upper Lobe Bronchial Culture - Preliminary Rare growth normal respiratory sánchez at 24 hours 09/19/17 11:53 Aerobic Blood Culture - Preliminary Blood - Peripheral No growth in 4 days Anaerobic Blood Culture - Preliminary No growth in 4 days 09/19/17 11:58 Aerobic Blood Culture - Preliminary Blood - Peripheral No growth in 4 days Anaerobic Blood Culture - Preliminary No growth in 4 days 09/18/17 06:56 Aerobic Blood Culture - Final Blood - Peripheral Group B beta Strep Anaerobic Blood Culture - Final No growth in 5 days 09/18/17 04:05 Aerobic Blood Culture - Final Blood - Peripheral No growth in 5 days Anaerobic Blood Culture - Final No growth in 5 days Impressions Chest X-Ray 09/22/17 00:00 CONCLUSION: 1. Interval development of right upper lobe consolidation with volume loss. 2. Improved infiltrates in the left lung with some residual airspace opacities lower central lung. Chest X-Ray 09/23/17 06:00 CONCLUSION: 1. Resolved right upper lobe consolidation. 2. Continued improvement in left lung infiltrates with some residual in the retrocardiac region.
--- NOTE | 2017-09-23 14:03 | P.PNID ---
Subjective Remarks: Patient on CPAP. Sedation stopped this am. Not yet awakening. Afebrile. Bronch culture has no growth. Wound culture has group B strep. Blood culture has Group B strep. This is a 52-year-old white female who was admitted to the hospital after she presented with pain in her right foot. The patient was in the hospital between 08/21 and 08/29 and was being treated for diabetic foot ulcer with MRSA infection of the right foot. She states that the problem began approximately 2 weeks prior, and she was seen by the environmental management specialist and had debridement and worsened. She left the hospital against medical advice on 08/29/2017. She states that she had to get back to work because she needed the money to pay her rent. However, she was unable to work and eventually presented to the emergency department because of worsening of the wound with swelling and redness of the foot. Her white blood cell count was 20.5 in the emergency department with 17% bands, and she had an abnormal urinalysis. Her heart rate was 121 and temperature was 99.1 on admission. Her blood sugar was greater than 600. The patient is currently receiving Levophed. She is awake and alert. X-ray of the foot shows fracture deformity of the calcaneus with a large overlying soft tissue defect extending into the fracture. Lines: peripheral line without evidence of infection. Past Medical History: PAST MEDICAL HISTORY: Diabetes mellitus, hypertension, hepatitis C, and diabetic neuropathy. Allergies/Adverse Reactions: Allergies No Known Allergies Allergy (Unverified 08/02/17 06:11) Objective Vital Signs 09/22/17 14:00 09/22/17 15:00 09/22/17 15:56 Temperature Pulse Rate 100 H 98 H Respiratory Rate 27 H 24 22 Blood Pressure 107/59 L 109/65 Pulse Oximetry 100 100 100 09/22/17 16:00 09/22/17 17:00 09/22/17 18:00 Temperature 99.4 F Pulse Rate 98 H 105 H 99 H Respiratory Rate 23 23 20 Blood Pressure 133/78 98/57 L 101/59 L Pulse Oximetry 100 100 100 09/22/17 19:00 09/22/17 19:04 09/22/17 19:25 Temperature Pulse Rate 93 H 95 H Respiratory Rate 19 18 Blood Pressure 107/63 Pulse Oximetry 100 100 99 09/22/17 20:00 09/22/17 21:00 09/22/17 22:00 Temperature 98.8 F Pulse Rate 92 H 95 H 86 Respiratory Rate 17 19 19 Blood Pressure 100/57 L 113/60 144/83 H Pulse Oximetry 98 98 94 L 09/22/17 23:00 09/22/17 23:30 09/23/17 00:00 Temperature 100 F H Pulse Rate 100 H 92 H 102 H Respiratory Rate 19 17 19 Blood Pressure 130/71 135/71 Pulse Oximetry 99 98 09/23/17 01:00 09/23/17 01:11 09/23/17 02:00 Temperature Pulse Rate 95 H 102 H Respiratory Rate 18 18 20 Blood Pressure 121/63 117/63 Pulse Oximetry 98 98 98 09/23/17 03:00 09/23/17 04:00 09/23/17 04:01 Temperature Pulse Rate 93 H 96 H 96 H Respiratory Rate 17 19 Blood Pressure 108/60 137/87 Pulse Oximetry 99 98 09/23/17 05:00 09/23/17 06:00 09/23/17 07:00 Temperature 98.8 F Pulse Rate 96 H 101 H 92 H Respiratory Rate 17 21 17 Blood Pressure 137/78 122/68 124/71 Pulse Oximetry 96 09/23/17 08:00 09/23/17 08:36 09/23/17 09:00 Temperature 98.8 F Pulse Rate 96 H 97 H Respiratory Rate 18 17 19 Blood Pressure 141/80 H 121/67 Pulse Oximetry 96 95 98 09/23/17 10:00 09/23/17 11:00 09/23/17 11:49 Temperature Pulse Rate 98 H 94 H Respiratory Rate 20 20 18 Blood Pressure 127/78 119/66 Pulse Oximetry 96 94 L 09/23/17 12:00 09/23/17 13:32 Temperature 99.0 F Pulse Rate 93 H 96 H Respiratory Rate 18 21 Blood Pressure 129/71 Pulse Oximetry 96 Intake & Output 09/22/17 09/23/17 09/23/17 18:59 06:59 18:59 Intake Total 1163.5 / 1163.5 721 / 721 300 / 300 Output Total 2054 805 / 805 Balance -891.5 / -891.5 -84 / -84 300 / 300 Weight 75 kg Intake: IV 562.5 / 562.5 150 / 150 300 / 300 Versed Inj 50 mg In 50 ml @ 2 100 / 100 100 / 100 MG/HR 2 mls/hr IV.CONT TITRATE PRN Rx#:[id number] Mycamine Inj 100 MG In NS Inj 100 / 100 100 ML @ 100 mls/hr IV.SIG Q24H RICARDO Rx#:[id number] Zosyn 2.25 GM Premix 50 ML @ 100 / 100 50 / 50 50 / 50 100 mls/hr IV.SIG Q6HR RICARDO Rx#: [id number] Vancomycin Inj 1,250 MG In NS 262.5 / 262.5 Inj 250 ML @ 250 mls/hr IV.SIG Q24H RICARDO Rx#:[id number] fentaNYL 10 mcg/mL Premix Drip 250 / 250 2,500 mcg In 250 ml @ 50 MCG/HR 5 mls/hr IV.SIG TITRATE PRN Rx #:[id number] Tube Feeding 501 / 501 471 / 471 Water Bolus Amount 100 / 100 100 / 100 Output: Urine Amount (Catheter) 2049 800 / 800 Indwelling Urethral Catheter 2049 800 / 800 Wound Vac Amount 5 / 5 5 / 5 Right Leg 5 / 5 5 / 5 Other: Mode Setting Right Leg Continuous Continuous Continuous Date of Last Bowel Movement 09/22/17 09/23/17 09/23/17 # Bowel Movements 2 2 09/22/17 16:30 Bronchial - Right Upper Lobe Gram Stain - Final 09/22/17 16:30 Bronchial - Right Upper Lobe Bronchial Culture - Preliminary Rare growth normal respiratory sánchez at 24 hours 09/19/17 11:53 Blood - Peripheral Aerobic Blood Culture - Preliminary No growth in 4 days 09/19/17 11:53 Blood - Peripheral Anaerobic Blood Culture - Preliminary No growth in 4 days 09/19/17 11:58 Blood - Peripheral Aerobic Blood Culture - Preliminary No growth in 4 days 09/19/17 11:58 Blood - Peripheral Anaerobic Blood Culture - Preliminary No growth in 4 days 09/18/17 06:56 Blood - Peripheral Aerobic Blood Culture - Final Group B beta Strep 09/18/17 06:56 Blood - Peripheral Anaerobic Blood Culture - Final No growth in 5 days 09/18/17 04:05 Blood - Peripheral Aerobic Blood Culture - Final No growth in 5 days 09/18/17 04:05 Blood - Peripheral Anaerobic Blood Culture - Final No growth in 5 days 09/20/17 10:11 Wound - Leg Gram Stain - Final 09/20/17 10:11 Wound - Leg Wound Culture - Final Group B beta Strep 09/20/17 10:11 Other Acid Fast Bacilli Smear - Final No acid fast bacilli seen 09/20/17 10:11 Other Mycobacterial Culture - Pending 09/20/17 10:11 Other Fungal Smear - Final No fungal elements seen 09/20/17 10:11 Other Fungal Culture - Pending 09/18/17 09:45 Catheterized Urine Urine Culture - Final Talia glabrata Lab - Hematology Results 09/22/17 09/23/17 04:05 06:00 WBC 10.1 10.4 RBC 3.27 L 3.15 L Hgb 9.4 L 9.2 L Hct 28.9 L 28.1 L MCV 88.4 89.3 MCH 28.6 29.1 MCHC 32.4 32.6 RDW 15.3 15.3 Plt Count 237 277 MPV 9.7 9.7 Neut % (Auto) 63.3 Lymph % (Auto) 29.4 Antelope % (Auto) 5.9 Eos % (Auto) 0.8 Baso % (Auto) 0.6 Neut # (Auto) 6.4 Lymph # (Auto) 3.0 Antelope # (Auto) 0.6 Eos # (Auto) 0.1 Baso # (Auto) 0.1 WBC Differential . Differential Comment Auto diff final Lab - Chemistry Results 09/21/17 09/21/17 09/21/17 14:27 15:37 20:21 Sodium Potassium 4.0 D Chloride Carbon Dioxide Anion Gap BUN Creatinine Estimated GFR POC Glucose 244 H 268 H Random Glucose Calcium Magnesium Total Bilirubin AST ALT Alkaline Phosphatase Total Protein Albumin 09/21/17 09/22/17 09/22/17 23:35 03:49 04:05 Sodium 144 Potassium 4.4 Chloride 108 H Carbon Dioxide 25.7 Anion Gap 10 BUN 22 H Creatinine 1.53 H Estimated GFR 36 L POC Glucose 247 H 215 H Random Glucose 218 H Calcium 8.1 L Magnesium Total Bilirubin 0.5 AST 50 H ALT 12 Alkaline Phosphatase 797 H Total Protein 7.2 D Albumin 1.3 L 09/22/17 09/22/17 09/22/17 07:33 12:06 16:40 Sodium Potassium Chloride Carbon Dioxide Anion Gap BUN Creatinine Estimated GFR POC Glucose 271 H 221 H 245 H Random Glucose Calcium Magnesium Total Bilirubin AST ALT Alkaline Phosphatase Total Protein Albumin 09/22/17 09/22/17 09/23/17 19:53 23:44 03:56 Sodium Potassium Chloride Carbon Dioxide Anion Gap BUN Creatinine Estimated GFR POC Glucose 200 H 257 H 259 H Random Glucose Calcium Magnesium Total Bilirubin AST ALT Alkaline Phosphatase Total Protein Albumin 09/23/17 09/23/17 09/23/17 06:00 07:39 11:24 Sodium 146 H Potassium 3.9 Chloride 109 H Carbon Dioxide 30.0 Anion Gap 7 BUN 30 H Creatinine 1.81 H Estimated GFR 29 L POC Glucose 231 H 264 H Random Glucose 230 H Calcium 8.3 L Magnesium 1.9 Total Bilirubin 0.4 AST 55 H ALT 20 Alkaline Phosphatase 671 H Total Protein 7.3 Albumin 1.3 L Imaging: ITS Impressions Foot X-Ray 09/17/17 02:18 CONCLUSION: 1. Fracture deformity of the calcaneus with large overlying soft tissue defect which extends into the fracture. Foot MRI 09/19/17 00:00 CONCLUSION: Nearly all of the calcaneus is involved by osteomyelitis. A large fracture cleft has developed as above. There is gas in the soft tissues, fracture cleft, subtalar joint and focally in the talus adjacent to the sinus Tarsi. No definite talar osteomyelitis. Aorta w/Runoff CTA 09/19/17 09:45 CONCLUSION: 1. The examination demonstrates normal inflow and runoff to both lower extremities. 2. There is gas diffusely throughout the soft tissues of the right foot and ankle concerning for infection. Chest X-Ray 09/23/17 06:00 CONCLUSION: 1. Resolved right upper lobe consolidation. 2. Continued improvement in left lung infiltrates with some residual in the retrocardiac region. Physical Exam: PHYSICAL EXAMINATION: GENERAL: No acute distress. HEENT: The head is atraumatic. No icterus. Oropharynx: Moist mucosa. No visible lesions. NECK: Supple without adenopathy or swelling. LUNGS: Bilateral rhonchi. HEART: Regular S1 and S2. No murmurs heard. ABDOMEN: Bowel sounds present. Soft and nontender. EXTREMITIES: The right leg is amputated below the knee. Vacuum apparatus in place. Slight serous drainage. No CCE. SKIN: No rash. NEUROLOGIC: Non focal. PSYCHIATRIC: unable to assess. Assessment and Plan - Plan ASSESSMENT: 1. 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 Group B strep. 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 2. Diabetic foot infection. MRSA infection prior to amputation. 3. Sepsis due to group B beta strep. Indicated by tachycardia and elevated respiratory rate along with increased white blood cell count and abnormal urinalysis and foot wound culture. 4. Acute kidney disease. 5. Talia glabrata UTI. RECOMMENDATIONS: 1. STOP vancomycin. 2. Continue piperacillin/tazobactam. 3. Continue micafungin for Talia glabrata. 4. Repeat urine culture. 5. Monitor renal function 6. Follow sputum culture. 7. Monitor clinical status.
[2017-09-23] MEDS ORDERED: Pharmacy Ordered Lab Info OTHER SCH (19:45)
[2017-09-23] MEDS: Heparin - SQ 10,000 UNITS/ML Vial SQ SCH (20:31)
[2017-09-24] MEDS: Insulin NovoLOG Aspart Correctional Sugar Inj SQ SCH ×6 (00:50→19:58)
[2017-09-24] MEDS: Piperacil/Tazo 2.25 GM Premix 50 ML IV.SIG SCH ×4 (00:51→17:45)
--- NOTE | 2017-09-24 05:33 | XR ---
EXAM DATE: 09/24/2017 5:22 AM EDT AGE/SEX: 52 years / Female INDICATIONS: Shortness of breath. Possible respiratory disease. CLINICAL DATA: This is the patient's subsequent encounter. Patient reports that signs and symptoms h ave been present for 4 - 6 days and indicates a pain score of Nonresponsive. MEDICAL/SURGICAL HISTORY: . Diabetes. Hypertension . . Right foot surgery COMPARISON: No prior exams available for comparison. FINDINGS: Endotracheal tube, right jugular line and enteric tube again noted. The lungs are clear. The osseous structures are intact. CONCLUSION: Stable exam. Electronically signed by: Shayan Perez MD 09/24/2017 5:32 AM EDT
[2017-09-24 06:12] LABS: Hematocrit 28.4 % (35.0-46.0); Hemoglobin 9.2 gm/dL (11.6-15.3); Mean Corpuscular HGB Conc 32.4 % (32.0-36.0); Mean Corpuscular Hemoglobin 28.6 pg (27.0-34.0); Mean Corpuscular Volume 88.3 fL (80.0-100.0); Mean Platelet Volume 9.8 fL (7.0-11.0); Platelet Count 277 th/mm3 (150-450); Red Blood Count 3.21 mil/mm3 (4.00-5.30); Red Cell Distribution Width 15.2 % (11.6-17.2); White Blood Count 11.4 th/mm3 (4.0-11.0)
[2017-09-24 06:37] LABS: Albumin 1.4 g/dL (3.4-5.0); Anion Gap 10 meq/L (5-15); Aspartate Aminotransferase 41 U/L (15-37); Blood Urea Nitrogen 33 mg/dL (7-18); Calcium 8.5 mg/dL (8.5-10.1); Carbon Dioxide 30.1 meq/L (21.0-32.0); Chloride 106 meq/L (98-107); Glomerular Filtration Rate 29 mL/min (>89); Glucose,Random 177 mg/dL (74-106); Potassium 3.7 meq/L (3.5-5.1); Sodium 146 meq/L (136-145)
[2017-09-24 06:38] LABS: Alanine Aminotransferase 17 U/L (10-53)
[2017-09-24 06:40] LABS: Alkaline Phosphatase 583 U/L (45-117); Total Protein 7.7 g/dL (6.4-8.2)
--- NOTE | 2017-09-24 07:29 | P.PNCC ---
Subjective Subjective Remarks/Hospital Course: 52-year-old female with past medical history of hepatitis C, diabetes , hypertension, ulcer of the right heel who was admitted to [facility] service on 09/17/17 when she was admitted for right foot osteomyelitis. She had recently been admitted for this complaint 08/21 and left AMA on 08/29. During that admission she had an MRI of the foot 08/24/17 it was consistent with osteomyelitis. Wound cultures were positive for MRSA and group B strep. Blood cultures 08/21 were negative. She had normal ABIs. She was treated with Abx, surgical debridement by Dr. Valentine, and wound vac. She was readmitted for worsening pain in her heel. She had severe hyperglycemia without DKA. She was treated with an insulin drip and then transition to subcut. She has been hypotensive throughout the day and has been treated with fluid resuscitation. She has a 3.5 L of fluid bolus in addition to ~ 2 Liters of MIVF and meds. She has also received 2 units PRBC for Hgb 6.4 without obvious source of bleeding. She remains hypotensive and thus [facility] has been consulted to assist with hemodynamic management. She has been evaluated by podiatry, and R CAROLYN recommended. Awaiting vascular surgery consultation. She denies chest pain, shortness of breath, abdominal pain, nausea, vomiting, flank pain. 09/19 Patient is lying in bed in NAD. On room air oxygen. afebrile. Off Levophed. 09/20 Patient is lying in bed in NAD. For OR today for right BKA 09/21 Patient was intubated yesterday for resp failure. Sedated with Fentanyl and Versed . Afebrile. 09/22: Remains intubated sedated, on Versed and Fentanyl. CXR shows new RUL consolidation/volume loss. Plan for bronchoscopy later today. Also sent for sputum culture 09/23: Sedated with Versed and fentanyl infusions. Currently held patient remains obtunded on the vent. Today's chest x-ray shows resolution of the right upper lobe atelectasis after bronchoscopy yesterday. Tolerating spontaneous breathing trials. Creatinine is increased to 1.8 today, urine output adequate 09/24 No events overnight. On CPAP with PS 10, PEEP:5 and FIO2: 40%. Afebrile. On no drips. Objective Vital Signs / I&O: Vital Signs 09/23/17 08:00 09/23/17 08:36 09/23/17 09:00 Temperature 98.8 F Pulse Rate 96 H 97 H Respiratory Rate 18 17 19 Blood Pressure 141/80 H 121/67 Pulse Oximetry 96 95 98 09/23/17 10:00 09/23/17 11:00 09/23/17 11:49 Temperature Pulse Rate 98 H 94 H Respiratory Rate 20 20 18 Blood Pressure 127/78 119/66 Pulse Oximetry 96 94 L 09/23/17 12:00 09/23/17 13:00 09/23/17 13:32 Temperature 99.0 F Pulse Rate 93 H 98 H 96 H Respiratory Rate 18 19 21 Blood Pressure 129/71 128/73 Pulse Oximetry 96 96 09/23/17 14:00 09/23/17 14:29 09/23/17 15:00 Temperature Pulse Rate 94 H 94 H Respiratory Rate 45 H 16 16 Blood Pressure 134/71 129/69 Pulse Oximetry 100 100 100 09/23/17 16:00 09/23/17 17:00 09/23/17 18:00 Temperature 98.4 F Pulse Rate 92 H 93 H 96 H Respiratory Rate 14 21 16 Blood Pressure 132/67 129/68 135/74 Pulse Oximetry 100 100 100 09/23/17 19:00 09/23/17 19:55 09/23/17 20:00 Temperature 98.6 F Pulse Rate 95 H 96 H 96 H Respiratory Rate 17 15 17 Blood Pressure 144/79 H 142/71 H Pulse Oximetry 98 100 98 09/23/17 21:00 09/23/17 22:00 09/23/17 23:00 Temperature Pulse Rate 95 H 100 H 96 H Respiratory Rate 18 25 H 17 Blood Pressure 142/71 H 150/72 H 151/75 H Pulse Oximetry 99 100 100 09/24/17 00:00 09/24/17 00:52 09/24/17 01:00 Temperature Pulse Rate 94 H 94 H Respiratory Rate 15 14 17 Blood Pressure 146/69 H 146/69 H Pulse Oximetry 100 100 97 09/24/17 02:00 09/24/17 03:00 09/24/17 04:00 Temperature 98.5 F Pulse Rate 96 H 96 H 96 H Respiratory Rate 17 16 16 Blood Pressure 131/65 140/71 145/78 H Pulse Oximetry 96 97 96 09/24/17 04:01 09/24/17 05:00 09/24/17 06:00 Temperature Pulse Rate 92 H 99 H 94 H Respiratory Rate 16 17 16 Blood Pressure 146/75 H 134/72 Pulse Oximetry 100 09/24/17 07:00 Temperature Pulse Rate 91 H Respiratory Rate 24 Blood Pressure 163/81 H Pulse Oximetry Intake & Output 09/23/17 09/24/17 09/24/17 18:59 06:59 18:59 Intake Total 815.5 / 815.5 850 / 850 Output Total 2300 / 2300 650 / 650 Balance -1484.5 / -1484.5 200 / 200 Weight 66.2 kg Intake: IV 662.5 / 662.5 50 / 50 Zosyn 2.25 GM Premix 50 ML @ 150 / 150 50 / 50 100 mls/hr IV.SIG Q6HR RICARDO Rx#: [id number] Vancomycin Inj 1,250 MG In NS 262.5 / 262.5 Inj 250 ML @ 250 mls/hr IV.SIG Q24H RICARDO Rx#:[id number] fentaNYL 10 mcg/mL Premix Drip 250 / 250 2,500 mcg In 250 ml @ 50 MCG/HR 5 mls/hr IV.SIG TITRATE PRN Rx #:[id number] Tube Feeding 153 / 153 Water Bolus Amount 100 / 100 Anesthesia Amount 700 / 700 Output: Urine Amount (Catheter) 2300 / 2300 650 / 650 Indwelling Urethral Catheter 2300 / 2300 650 / 650 Wound Vac Amount 0 / 0 0 / 0 Right Leg 0 / 0 0 / 0 Other: Mode Setting Right Leg Continuous Continuous Date of Last Bowel Movement 09/23/17 09/23/17 # Bowel Movements 3 6 Result Diagrams: 09/24/17 05:45 09/24/17 05:45 Other Results: Laboratory Results - last 12 hr 09/23/17 09/23/17 09/24/17 19:21 22:30 00:45 WBC RBC Hgb Hct MCV MCH MCHC RDW Plt Count MPV Sodium Potassium Chloride Carbon Dioxide Anion Gap BUN Creatinine Estimated GFR POC Glucose 198 H 254 H Random Glucose Calcium Total Bilirubin AST ALT Alkaline Phosphatase Total Protein Albumin Vancomycin Trough 46.3 H 09/24/17 09/24/17 09/24/17 04:29 05:45 05:45 WBC 11.4 H RBC 3.21 L Hgb 9.2 L Hct 28.4 L MCV 88.3 MCH 28.6 MCHC 32.4 RDW 15.2 Plt Count 277 MPV 9.8 Sodium 146 H Potassium 3.7 Chloride 106 Carbon Dioxide 30.1 Anion Gap 10 BUN 33 H Creatinine 1.82 H Estimated GFR 29 L POC Glucose 182 H Random Glucose 177 H Calcium 8.5 Total Bilirubin 0.4 AST 41 H ALT 17 Alkaline Phosphatase 583 H Total Protein 7.7 Albumin 1.4 L Vancomycin Trough Imaging: Foot X-Ray 09/17/17 02:18 CONCLUSION: 1. Fracture deformity of the calcaneus with large overlying soft tissue defect which extends into the fracture. Foot MRI 09/19/17 00:00 CONCLUSION: Nearly all of the calcaneus is involved by osteomyelitis. A large fracture cleft has developed as above. There is gas in the soft tissues, fracture cleft, subtalar joint and focally in the talus adjacent to the sinus Tarsi. No definite talar osteomyelitis. Aorta w/Runoff CTA 09/19/17 09:45 CONCLUSION: 1. The examination demonstrates normal inflow and runoff to both lower extremities. 2. There is gas diffusely throughout the soft tissues of the right foot and ankle concerning for infection. Chest X-Ray 09/24/17 06:00 CONCLUSION: Stable exam. Objective Remarks: GENERAL: Patient is 52 yo lying in bed intubated SKIN: Warm and dry. HEAD: Normocephalic. EYES: No scleral icterus. No injection or drainage. NECK: Supple, trachea midline. No JVD or lymphadenopathy. Orally intubated CARDIOVASCULAR: Regular rate and rhythm without murmurs, gallops, or rubs. RESPIRATORY: Breath sounds equal bilaterally. No accessory muscle use. No wheezes or crackles anteriorly GASTROINTESTINAL: Abdomen soft, non-tender, nondistended. MUSCULOSKELETAL: + 1 edema on left, right BKA. wound VAC is in place Neuro: Intubated Assessment and Plan - Problem List (1) Septic shock Code(s): A41.9 - Sepsis, unspecified organism; R65.21 - Severe sepsis with septic shock Status: Acute (2) Hyperglycemia Code(s): R73.9 - Hyperglycemia, unspecified Status: Acute (3) Acute osteomyelitis of right calcaneus Code(s): M86.171 - Other acute osteomyelitis, right ankle and foot Status: Acute (4) DM (diabetes mellitus) Code(s): E11.9 - Type 2 diabetes mellitus without complications Status: Acute - Assessment and Plan Plan: NEURO: Metabolic encephalopathy Pain secondary to R foot osteomyelitis Off sedation. Monitor neuro status On Ofirmev and morphine as needed for pain. RESP: Prior tobacco abuse Continue with vent support keep sats >92% On CPAP with PS 10, PEEP:5 and FIO2 40% Bronchodilators, ICU vent bundle. s/p bronchoscopy 09/22 BAL: NGTD Continue diuretics-Lasix 40mg IV daily CV: Septic shock- Resolved Hypertension Monitor HR and BP keep MAP>65mmHg Place on Lopressor 50mg Q12 Lactic acid: 1.2 Echo showed EF 65-70% D/c Lasix GI: Tube feeds on hold for possible extubation.(Glucerna 1.5 with goal rate 45ml /hr) Protonix 40mg daily for GI prophylaxis FEN/RENAL: MARIO Monitor renal function, I/O's, electrolytes replacement per protocol Creatinine elevated 1.82 today continue to monitor daily D/c Lasix ID: s/p Septic shock Right foot osteomyelitis Continue Zosyn and Micafungin for Talia glabrata UTI. ID is following Check for C-diff Monitor for signs of infections ( Fever, WBC) C diff PCR positive will add PO Vanco 125mg QID. Podiatry and vascular surgery ( Dr. Lockett) are following s/p right BKA on 09/20 F/u Bronch with BAL, culture- NGTD 09/20 Wound culture: GBS BC 09/19: NGTD BC 09/18 02/22 bottles Group B beta strep Urine cx 09/18: C. Glabrata HEME: Monitor CBC ENDO: Diabetes mellitus SSI for glycemic control PROPH:Protonix for stress ulcer prophylaxis not on chemical AC prophylaxis due to anemia and procedures s/p Right BKA 09/20. Heparin 5000 U sq q 12hrs ACCESS: Right IJ central venous line placed 09/18, peripheral IV's Full code Level 3
[2017-09-24] MEDS: Pantoprazole Inj 40 MG Vial IV.PUSH SCH (08:02)
[2017-09-24] MEDS: Heparin - SQ 10,000 UNITS/ML Vial SQ SCH ×2 (08:02→21:17)
[2017-09-24] MEDS: Senna/Docusate Sodium 8.6/50 MG Tablet PO SCH ×2 (08:03→21:18)
[2017-09-24] MEDS: Mupirocin 2% Nasal Oint Topical Syringe EACH NARE SCH ×2 (08:03→21:17)
--- NOTE | 2017-09-24 11:53 | P.PNVS ---
Subjective Subjective/Hospital Course: 51-year-old female with diabetes mellitus and a huge necrotic ulcer of the left heel and necrosis of the left midfoot with exposed bone and osteomyelitis At this point there are no other options available then below-knee amputation and will go ahead with the same on Full consult dictated Thanks J 09/19/2017 Patient with peripheral vascular disease and gangrene of the right foot and non- salvageable lower leg for below-knee amputation tomorrow Second opinion rendered by Dr. York. We will do CTA with a runoff to evaluate for any other vascular occlusive disease that might jeopardize either the BKA or the other leg in the future. Based on clinical exam I do not believe the patient has any inflow occlusive disease and popliteal vessels are clearly patent Patient has dorsalis pedis and posterior tibial arteries bilateral and I do not believe she has a significant degree of outflow disease either. Majority of diseases is likely in patient's foot and small vessels. Patient scheduled to undergo tomorrow right below-knee amputation was depending on the appearance of the tissues might be carried out in 2 stages first is a guillotine amputation and second stage closure or in 1 stage if tissues appear to be adequate. 09/20/2017 Patient is status post right below-knee guillotine amputation and wound VAC placement. This is infected area and primary closure with a been ill advised Patient will have wound VAC until next week in about 5-6 days should be ready for a second stage procedure and closure of the below-knee stump 09/21/2017 Patient status post right BKA guillotine amputation wound VAC is in place and serosanguineous drainage remains in the canister Patient remains intubated for apparently last night with attempted extubation patient was agitated unmanageable and bucking the ventilator Plan to take patient back to the operating room for second stage BKA revision and closure probably Sunday09/22/2017 Patient stable in the ICU Will undergo second stage closure of the below-knee amputation next week Serosanguineous drainage from the wound VAC Nothing to add to care further 09/23/2017 Status post right below-knee amputation guillotine type stage I Wound VAC in place and serosanguineous drainage We will take patient to the operating room this week for second stage procedure and closure probably middle of the week 09/24/2017 Patient remains on CPAP. Plan to take to OR tomorrow for 2nd stage closure of the BKA Objective Vital Signs / I&O: Vital Signs 09/23/17 12:00 09/23/17 13:00 09/23/17 13:32 Temperature 99.0 F Pulse Rate 93 H 98 H 96 H Respiratory Rate 18 19 21 Blood Pressure 129/71 128/73 Pulse Oximetry 96 96 09/23/17 14:00 09/23/17 14:29 09/23/17 15:00 Temperature Pulse Rate 94 H 94 H Respiratory Rate 45 H 16 16 Blood Pressure 134/71 129/69 Pulse Oximetry 100 100 100 09/23/17 16:00 09/23/17 17:00 09/23/17 18:00 Temperature 98.4 F Pulse Rate 92 H 93 H 96 H Respiratory Rate 14 21 16 Blood Pressure 132/67 129/68 135/74 Pulse Oximetry 100 100 100 09/23/17 19:00 09/23/17 19:55 09/23/17 20:00 Temperature 98.6 F Pulse Rate 95 H 96 H 96 H Respiratory Rate 17 15 17 Blood Pressure 144/79 H 142/71 H Pulse Oximetry 98 100 98 09/23/17 21:00 09/23/17 22:00 09/23/17 23:00 Temperature Pulse Rate 95 H 100 H 96 H Respiratory Rate 18 25 H 17 Blood Pressure 142/71 H 150/72 H 151/75 H Pulse Oximetry 99 100 100 09/24/17 00:00 09/24/17 00:52 09/24/17 01:00 Temperature Pulse Rate 94 H 94 H Respiratory Rate 15 14 17 Blood Pressure 146/69 H 146/69 H Pulse Oximetry 100 100 97 09/24/17 02:00 09/24/17 03:00 09/24/17 04:00 Temperature 98.5 F Pulse Rate 96 H 96 H 96 H Respiratory Rate 17 16 16 Blood Pressure 131/65 140/71 145/78 H Pulse Oximetry 96 97 96 09/24/17 04:01 09/24/17 05:00 09/24/17 06:00 Temperature Pulse Rate 92 H 99 H 94 H Respiratory Rate 16 17 16 Blood Pressure 146/75 H 134/72 Pulse Oximetry 100 09/24/17 07:00 09/24/17 07:23 09/24/17 08:00 Temperature 99.0 F Pulse Rate 91 H 80 87 Respiratory Rate 24 14 42 H Blood Pressure 163/81 H 140/67 Pulse Oximetry 100 100 09/24/17 09:00 09/24/17 10:00 09/24/17 10:08 Temperature Pulse Rate 98 H 90 Respiratory Rate 28 H 17 23 Blood Pressure 165/92 H 146/71 H Pulse Oximetry 100 100 100 09/24/17 11:00 Temperature Pulse Rate 95 H Respiratory Rate 17 Blood Pressure 167/77 H Pulse Oximetry 100 Intake & Output 09/23/17 09/24/17 09/24/17 18:59 06:59 18:59 Intake Total 915.5 / 915.5 850 / 850 50 / 50 Output Total 2300 / 2300 650 / 650 Balance -1384.5 / -1384.5 200 / 200 50 / 50 Weight 66.2 kg Intake: IV 762.5 / 762.5 50 / 50 50 / 50 Mycamine Inj 100 MG In NS Inj 100 / 100 100 ML @ 100 mls/hr IV.SIG Q24H RICARDO Rx#:[id number] Zosyn 2.25 GM Premix 50 ML @ 150 / 150 50 / 50 50 / 50 100 mls/hr IV.SIG Q6HR RICARDO Rx#: [id number] Vancomycin Inj 1,250 MG In NS 262.5 / 262.5 Inj 250 ML @ 250 mls/hr IV.SIG Q24H RICARDO Rx#:[id number] fentaNYL 10 mcg/mL Premix Drip 250 / 250 2,500 mcg In 250 ml @ 50 MCG/HR 5 mls/hr IV.SIG TITRATE PRN Rx #:[id number] Tube Feeding 153 / 153 Water Bolus Amount 100 / 100 Anesthesia Amount 700 / 700 Output: Urine Amount (Catheter) 2300 / 2300 650 / 650 Indwelling Urethral Catheter 2300 / 2300 650 / 650 Wound Vac Amount 0 / 0 0 / 0 Right Leg 0 / 0 0 / 0 Other: Mode Setting Right Leg Continuous Continuous Continuous Date of Last Bowel Movement 09/23/17 09/23/17 09/23/17 # Bowel Movements 3 6 Laboratory Results - last 24 hr 09/23/17 09/23/17 09/23/17 15:38 19:21 22:30 WBC RBC Hgb Hct MCV MCH MCHC RDW Plt Count MPV Sodium Potassium Chloride Carbon Dioxide Anion Gap BUN Creatinine Estimated GFR POC Glucose 210 H 198 H Random Glucose Calcium Total Bilirubin AST ALT Alkaline Phosphatase Total Protein Albumin Vancomycin Trough 46.3 H 09/24/17 09/24/17 09/24/17 00:45 04:29 05:45 WBC 11.4 H RBC 3.21 L Hgb 9.2 L Hct 28.4 L MCV 88.3 MCH 28.6 MCHC 32.4 RDW 15.2 Plt Count 277 MPV 9.8 Sodium Potassium Chloride Carbon Dioxide Anion Gap BUN Creatinine Estimated GFR POC Glucose 254 H 182 H Random Glucose Calcium Total Bilirubin AST ALT Alkaline Phosphatase Total Protein Albumin Vancomycin Trough 09/24/17 09/24/17 05:45 07:38 WBC RBC Hgb Hct MCV MCH MCHC RDW Plt Count MPV Sodium 146 H Potassium 3.7 Chloride 106 Carbon Dioxide 30.1 Anion Gap 10 BUN 33 H Creatinine 1.82 H Estimated GFR 29 L POC Glucose 179 H Random Glucose 177 H Calcium 8.5 Total Bilirubin 0.4 AST 41 H ALT 17 Alkaline Phosphatase 583 H Total Protein 7.7 Albumin 1.4 L Vancomycin Trough Microbiology 09/19/17 11:53 Aerobic Blood Culture - Final Blood - Peripheral No growth in 5 days Anaerobic Blood Culture - Final No growth in 5 days 09/19/17 11:58 Aerobic Blood Culture - Final Blood - Peripheral No growth in 5 days Anaerobic Blood Culture - Final No growth in 5 days 09/22/17 16:30 Gram Stain - Final Bronchial - Right Upper Lobe Bronchial Culture - Preliminary Rare growth normal respiratory sánchez at 24 hours 09/18/17 06:56 Aerobic Blood Culture - Final Blood - Peripheral Group B beta Strep Anaerobic Blood Culture - Final No growth in 5 days 09/18/17 04:05 Aerobic Blood Culture - Final Blood - Peripheral No growth in 5 days Anaerobic Blood Culture - Final No growth in 5 days Impressions Chest X-Ray 09/23/17 06:00 CONCLUSION: 1. Resolved right upper lobe consolidation. 2. Continued improvement in left lung infiltrates with some residual in the retrocardiac region. Chest X-Ray 09/24/17 06:00 CONCLUSION: Stable exam.
--- NOTE | 2017-09-24 12:11 | P.PNID ---
Subjective Remarks: She remains on the ventilator. She received CPAP for 24 hours. Now off sedation. She is opening her eyes and following commands. Discussed with RN. She has had multiple episodes of loose stools. C. difficile toxin sent. Afebrile. Wound culture has group B strep. Blood culture has Group B strep. Patient is post right BKA. This is a 52-year-old white female who was admitted to the hospital after she presented with pain in her right foot. The patient was in the hospital between 08/21 and 08/29 and was being treated for diabetic foot ulcer with MRSA infection of the right foot. She states that the problem began approximately 2 weeks prior, and she was seen by the disability services coordinator and had debridement and worsened. She left the hospital against medical advice on 08/29/2017. She states that she had to get back to work because she needed the money to pay her rent. However, she was unable to work and eventually presented to the emergency department because of worsening of the wound with swelling and redness of the foot. Her white blood cell count was 20.5 in the emergency department with 17% bands, and she had an abnormal urinalysis. Her heart rate was 121 and temperature was 99.1 on admission. Her blood sugar was greater than 600. The patient is currently receiving Levophed. She is awake and alert. X-ray of the foot shows fracture deformity of the calcaneus with a large overlying soft tissue defect extending into the fracture. Lines: peripheral line without evidence of infection. Past Medical History: PAST MEDICAL HISTORY: Diabetes mellitus, hypertension, hepatitis C, and diabetic neuropathy. Allergies/Adverse Reactions: Allergies No Known Allergies Allergy (Unverified 08/02/17 06:11) Objective Vital Signs 09/23/17 13:00 09/23/17 13:32 09/23/17 14:00 Temperature Pulse Rate 98 H 96 H 94 H Respiratory Rate 19 21 45 H Blood Pressure 128/73 134/71 Pulse Oximetry 96 100 09/23/17 14:29 09/23/17 15:00 09/23/17 16:00 Temperature 98.4 F Pulse Rate 94 H 92 H Respiratory Rate 16 16 14 Blood Pressure 129/69 132/67 Pulse Oximetry 100 100 100 09/23/17 17:00 09/23/17 18:00 09/23/17 19:00 Temperature Pulse Rate 93 H 96 H 95 H Respiratory Rate 21 16 17 Blood Pressure 129/68 135/74 144/79 H Pulse Oximetry 100 100 98 09/23/17 19:55 09/23/17 20:00 09/23/17 21:00 Temperature 98.6 F Pulse Rate 96 H 96 H 95 H Respiratory Rate 15 17 18 Blood Pressure 142/71 H 142/71 H Pulse Oximetry 100 98 99 09/23/17 22:00 09/23/17 23:00 09/24/17 00:00 Temperature Pulse Rate 100 H 96 H 94 H Respiratory Rate 25 H 17 15 Blood Pressure 150/72 H 151/75 H 146/69 H Pulse Oximetry 100 100 100 09/24/17 00:52 09/24/17 01:00 09/24/17 02:00 Temperature Pulse Rate 94 H 96 H Respiratory Rate 14 17 17 Blood Pressure 146/69 H 131/65 Pulse Oximetry 100 97 96 09/24/17 03:00 09/24/17 04:00 09/24/17 04:01 Temperature 98.5 F Pulse Rate 96 H 96 H 92 H Respiratory Rate 16 16 16 Blood Pressure 140/71 145/78 H Pulse Oximetry 97 96 100 09/24/17 05:00 09/24/17 06:00 09/24/17 07:00 Temperature Pulse Rate 99 H 94 H 91 H Respiratory Rate 17 16 24 Blood Pressure 146/75 H 134/72 163/81 H Pulse Oximetry 09/24/17 07:23 09/24/17 08:00 09/24/17 09:00 Temperature 99.0 F Pulse Rate 80 87 98 H Respiratory Rate 14 42 H 28 H Blood Pressure 140/67 165/92 H Pulse Oximetry 100 100 100 09/24/17 10:00 09/24/17 10:08 09/24/17 11:00 Temperature Pulse Rate 90 95 H Respiratory Rate 17 23 17 Blood Pressure 146/71 H 167/77 H Pulse Oximetry 100 100 100 Intake & Output 09/23/17 09/24/17 09/24/17 18:59 06:59 18:59 Intake Total 915.5 / 915.5 850 / 850 50 / 50 Output Total 2300 / 2300 650 / 650 Balance -1384.5 / -1384.5 200 / 200 50 / 50 Weight 66.2 kg Intake: IV 762.5 / 762.5 50 / 50 50 / 50 Mycamine Inj 100 MG In NS Inj 100 / 100 100 ML @ 100 mls/hr IV.SIG Q24H RICARDO Rx#:[id number] Zosyn 2.25 GM Premix 50 ML @ 150 / 150 50 / 50 50 / 50 100 mls/hr IV.SIG Q6HR RICARDO Rx#: [id number] Vancomycin Inj 1,250 MG In NS 262.5 / 262.5 Inj 250 ML @ 250 mls/hr IV.SIG Q24H RICARDO Rx#:[id number] fentaNYL 10 mcg/mL Premix Drip 250 / 250 2,500 mcg In 250 ml @ 50 MCG/HR 5 mls/hr IV.SIG TITRATE PRN Rx #:[id number] Tube Feeding 153 / 153 Water Bolus Amount 100 / 100 Anesthesia Amount 700 / 700 Output: Urine Amount (Catheter) 2300 / 2300 650 / 650 Indwelling Urethral Catheter 2300 / 2300 650 / 650 Wound Vac Amount 0 / 0 0 / 0 Right Leg 0 / 0 0 / 0 Other: Mode Setting Right Leg Continuous Continuous Continuous Date of Last Bowel Movement 09/23/17 09/23/17 09/23/17 # Bowel Movements 3 6 09/19/17 11:53 Blood - Peripheral Aerobic Blood Culture - Final No growth in 5 days 09/19/17 11:53 Blood - Peripheral Anaerobic Blood Culture - Final No growth in 5 days 09/19/17 11:58 Blood - Peripheral Aerobic Blood Culture - Final No growth in 5 days 09/19/17 11:58 Blood - Peripheral Anaerobic Blood Culture - Final No growth in 5 days 09/22/17 16:30 Bronchial - Right Upper Lobe Gram Stain - Final 09/22/17 16:30 Bronchial - Right Upper Lobe Bronchial Culture - Preliminary Rare growth normal respiratory sánchez at 24 hours 09/18/17 06:56 Blood - Peripheral Aerobic Blood Culture - Final Group B beta Strep 09/18/17 06:56 Blood - Peripheral Anaerobic Blood Culture - Final No growth in 5 days 09/18/17 04:05 Blood - Peripheral Aerobic Blood Culture - Final No growth in 5 days 09/18/17 04:05 Blood - Peripheral Anaerobic Blood Culture - Final No growth in 5 days 09/20/17 10:11 Wound - Leg Gram Stain - Final 09/20/17 10:11 Wound - Leg Wound Culture - Final Group B beta Strep 09/20/17 10:11 Other Acid Fast Bacilli Smear - Final No acid fast bacilli seen 09/20/17 10:11 Other Mycobacterial Culture - Pending Lab - Hematology Results 09/23/17 09/24/17 06:00 05:45 WBC 10.4 11.4 H RBC 3.15 L 3.21 L Hgb 9.2 L 9.2 L Hct 28.1 L 28.4 L MCV 89.3 88.3 MCH 29.1 28.6 MCHC 32.6 32.4 RDW 15.3 15.2 Plt Count 277 277 MPV 9.7 9.8 Lab - Chemistry Results 09/22/17 09/22/17 09/22/17 12:06 16:40 19:53 Sodium Potassium Chloride Carbon Dioxide Anion Gap BUN Creatinine Estimated GFR POC Glucose 221 H 245 H 200 H Random Glucose Calcium Magnesium Total Bilirubin AST ALT Alkaline Phosphatase Total Protein Albumin 09/22/17 09/23/17 09/23/17 23:44 03:56 06:00 Sodium 146 H Potassium 3.9 Chloride 109 H Carbon Dioxide 30.0 Anion Gap 7 BUN 30 H Creatinine 1.81 H Estimated GFR 29 L POC Glucose 257 H 259 H Random Glucose 230 H Calcium 8.3 L Magnesium 1.9 Total Bilirubin 0.4 AST 55 H ALT 20 Alkaline Phosphatase 671 H Total Protein 7.3 Albumin 1.3 L 09/23/17 09/23/17 09/23/17 07:39 11:24 15:38 Sodium Potassium Chloride Carbon Dioxide Anion Gap BUN Creatinine Estimated GFR POC Glucose 231 H 264 H 210 H Random Glucose Calcium Magnesium Total Bilirubin AST ALT Alkaline Phosphatase Total Protein Albumin 09/23/17 09/24/17 09/24/17 19:21 00:45 04:29 Sodium Potassium Chloride Carbon Dioxide Anion Gap BUN Creatinine Estimated GFR POC Glucose 198 H 254 H 182 H Random Glucose Calcium Magnesium Total Bilirubin AST ALT Alkaline Phosphatase Total Protein Albumin 09/24/17 09/24/17 09/24/17 05:45 07:38 11:56 Sodium 146 H Potassium 3.7 Chloride 106 Carbon Dioxide 30.1 Anion Gap 10 BUN 33 H Creatinine 1.82 H Estimated GFR 29 L POC Glucose 179 H 232 H Random Glucose 177 H Calcium 8.5 Magnesium Total Bilirubin 0.4 AST 41 H ALT 17 Alkaline Phosphatase 583 H Total Protein 7.7 Albumin 1.4 L Imaging: ITS Impressions Foot X-Ray 09/17/17 02:18 CONCLUSION: 1. Fracture deformity of the calcaneus with large overlying soft tissue defect which extends into the fracture. Foot MRI 09/19/17 00:00 CONCLUSION: Nearly all of the calcaneus is involved by osteomyelitis. A large fracture cleft has developed as above. There is gas in the soft tissues, fracture cleft, subtalar joint and focally in the talus adjacent to the sinus Tarsi. No definite talar osteomyelitis. Aorta w/Runoff CTA 09/19/17 09:45 CONCLUSION: 1. The examination demonstrates normal inflow and runoff to both lower extremities. 2. There is gas diffusely throughout the soft tissues of the right foot and ankle concerning for infection. Chest X-Ray 09/24/17 06:00 CONCLUSION: Stable exam. Physical Exam: PHYSICAL EXAMINATION: GENERAL: No acute distress. HEENT: The head is atraumatic. No icterus. Oropharynx: Moist mucosa. No visible lesions. NECK: Supple without adenopathy or swelling. LUNGS: Decreased breath sounds bilateral. HEART: Regular S1 and S2. No murmurs heard. ABDOMEN: Bowel sounds present. Soft and nontender. EXTREMITIES: The right leg is amputated below the knee. Vacuum apparatus in place. Slight serous drainage. No erythema. No CCE. SKIN: No rash. NEUROLOGIC: Non focal. PSYCHIATRIC: Unable to assess. Assessment and Plan - Plan ASSESSMENT: 1. 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 Group B strep. 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 2. Diabetic foot infection. MRSA infection prior to amputation. 3. Sepsis due to group B beta strep. Indicated by tachycardia and elevated respiratory rate along with increased white blood cell count and abnormal urinalysis and foot wound culture. 4. Acute kidney disease. 5. Talia glabrata UTI. RECOMMENDATIONS: 1. Continue piperacillin/tazobactam. 2. Continue micafungin for Talia glabrata. 3. Repeat urine culture. 4. Monitor renal function 5. Monitor clinical status.
[2017-09-24] MEDS: Dexmedetomidine Inj 200 MCG in Sodium Chlor 0.9% Inj 48 ML IV.CONT PRN ×5 (12:30→22:05)
[2017-09-24] MEDS: Metoprolol Tartrate 50 MG Tablet PO SCH ×2 (14:40→21:17)
[2017-09-25] MEDS: Piperacil/Tazo 2.25 GM Premix 50 ML IV.SIG SCH ×4 (00:40→18:09)
[2017-09-25] MEDS: Dexmedetomidine Inj 200 MCG in Sodium Chlor 0.9% Inj 48 ML IV.CONT PRN ×4 (01:03→09:52)
[2017-09-25] MEDS: Insulin NovoLOG Aspart Correctional Sugar Inj SQ SCH ×6 (01:03→20:30)
[2017-09-25 05:38] LABS: Baso # (Auto) 0.1 th/mm3 (0.0-0.2); Baso % (Auto) 0.5 % (0.0-2.0); Eos # (Auto) 0.1 th/mm3 (0.0-0.4); Eos % (Auto) 0.6 % (0.0-4.0); Hematocrit 29.9 % (35.0-46.0); Hemoglobin 9.5 gm/dL (11.6-15.3); Lymph # (Auto) 3.1 th/mm3 (1.0-4.8); Lymph % (Auto) 24.8 % (9.0-44.0); Mean Corpuscular HGB Conc 31.8 % (32.0-36.0); Mean Corpuscular Volume 87.9 fL (80.0-100.0); Mean Platelet Volume 9.4 fL (7.0-11.0); Mono # (Auto) 0.5 th/mm3 (0.0-0.9); Neut # (Auto) 8.7 th/mm3 (1.8-7.7); Neut % (Auto) 70.1 % (16.0-70.0); Platelet Count 297 th/mm3 (150-450); Red Cell Distribution Width 15.2 % (11.6-17.2); White Blood Count 12.4 th/mm3 (4.0-11.0)
[2017-09-25 06:20] LABS: Calcium 8.3 mg/dL (8.5-10.1); Carbon Dioxide 31.8 meq/L (21.0-32.0); Magnesium 2.1 mg/dL (1.5-2.5); Phosphorus 3.8 mg/dL (2.5-4.9); Potassium 3.3 meq/L (3.5-5.1)
[2017-09-25] MEDS: Morphine Inj 4 MG/ML Vial IV.PUSH PRN ×3 (06:46→20:31)
[2017-09-25] MEDS ORDERED: Potassium Chlor 40 mEq Premix 40 MEQ/100 ML PIGGYBACK IV.SIG PRN (07:04)
[2017-09-25] MEDS: Pantoprazole Inj 40 MG Vial IV.PUSH SCH (08:35)
[2017-09-25] MEDS: Senna/Docusate Sodium 8.6/50 MG Tablet PO SCH ×2 (08:35→20:28)
[2017-09-25] MEDS: Mupirocin 2% Nasal Oint Topical Syringe EACH NARE SCH ×2 (08:36→20:28)
[2017-09-25] MEDS: Heparin - SQ 10,000 UNITS/ML Vial SQ SCH ×2 (08:36→20:28)
[2017-09-25] MEDS: Metoprolol Tartrate 50 MG Tablet PO SCH ×2 (08:37→20:28)
[2017-09-25] MEDS: Potassium Chlor 40 mEq Premix 40 MEQ/100 ML PIGGYBACK IV.SIG PRN (08:37)
[2017-09-25] MEDS ORDERED: Dexmedetomidine Inj 200 MCG/2 ML Vial ONE (11:53)
[2017-09-25] MEDS ORDERED: fentaNYL Citrate Inj 100 MCG/2 ML Ampul ONE (12:53)
--- NOTE | 2017-09-25 13:31 | P.PNCC ---
Subjective Subjective Remarks/Hospital Course: 52-year-old female with past medical history of hepatitis C, diabetes , hypertension, ulcer of the right heel who was admitted to [facility] service on 09/17/17 when she was admitted for right foot osteomyelitis. She had recently been admitted for this complaint 08/21 and left AMA on 08/29. During that admission she had an MRI of the foot 08/24/17 it was consistent with osteomyelitis. Wound cultures were positive for MRSA and group B strep. Blood cultures 08/21 were negative. She had normal ABIs. She was treated with Abx, surgical debridement by Dr. Valentine, and wound vac. She was readmitted for worsening pain in her heel. She had severe hyperglycemia without DKA. She was treated with an insulin drip and then transition to subcut. She has been hypotensive throughout the day and has been treated with fluid resuscitation. She has a 3.5 L of fluid bolus in addition to ~ 2 Liters of MIVF and meds. She has also received 2 units PRBC for Hgb 6.4 without obvious source of bleeding. She remains hypotensive and thus [facility] has been consulted to assist with hemodynamic management. She has been evaluated by podiatry, and R CAROLYN recommended. Awaiting vascular surgery consultation. She denies chest pain, shortness of breath, abdominal pain, nausea, vomiting, flank pain. 09/19 Patient is lying in bed in NAD. On room air oxygen. afebrile. Off Levophed. 09/20 Patient is lying in bed in NAD. For OR today for right BKA 09/21 Patient was intubated yesterday for resp failure. Sedated with Fentanyl and Versed . Afebrile. 09/22: Remains intubated sedated, on Versed and Fentanyl. CXR shows new RUL consolidation/volume loss. Plan for bronchoscopy later today. Also sent for sputum culture 09/23: Sedated with Versed and fentanyl infusions. Currently held patient remains obtunded on the vent. Today's chest x-ray shows resolution of the right upper lobe atelectasis after bronchoscopy yesterday. Tolerating spontaneous breathing trials. Creatinine is increased to 1.8 today, urine output adequate 09/24 No events overnight. On CPAP with PS 10, PEEP:5 and FIO2: 40%. Afebrile. On no drips. SUBJECTIVE: 09/25: Status post second step of right below the knee amputation closure by Dr. Lyons Will attempt PSVT trial attempt to extubate. Currently 4% FiO2 PEEP of 5. Objective Vital Signs / I&O: Vital Signs 09/24/17 13:30 09/24/17 14:00 09/24/17 14:30 Temperature Pulse Rate 75 81 76 Respiratory Rate 17 15 21 Blood Pressure 149/73 H 166/80 H 173/84 H Pulse Oximetry 100 100 100 09/24/17 15:00 09/24/17 15:22 09/24/17 15:30 Temperature Pulse Rate 78 74 68 Respiratory Rate 19 17 16 Blood Pressure 171/83 H 174/89 H Pulse Oximetry 100 100 09/24/17 16:00 09/24/17 16:23 09/24/17 16:30 Temperature 98.9 F Pulse Rate 74 75 Respiratory Rate 21 16 18 Blood Pressure 173/96 H 176/85 H Pulse Oximetry 100 100 100 09/24/17 17:00 09/24/17 17:30 09/24/17 18:00 Temperature Pulse Rate 77 78 78 Respiratory Rate 18 18 18 Blood Pressure 171/82 H 169/83 H 164/80 H Pulse Oximetry 100 100 100 09/24/17 18:30 09/24/17 19:00 09/24/17 20:00 Temperature 98.5 F Pulse Rate 77 77 80 Respiratory Rate 17 18 18 Blood Pressure 160/81 H 165/82 H 169/81 H Pulse Oximetry 100 100 100 09/24/17 20:06 09/24/17 21:00 09/24/17 22:00 Temperature Pulse Rate 71 80 80 Respiratory Rate 18 17 17 Blood Pressure 169/81 H 173/84 H Pulse Oximetry 100 100 09/24/17 23:00 09/24/17 23:58 09/25/17 00:00 Temperature 99.0 F Pulse Rate 78 78 Respiratory Rate 17 17 20 Blood Pressure 158/78 H 172/85 H Pulse Oximetry 100 100 100 09/25/17 01:00 09/25/17 02:00 09/25/17 03:00 Temperature Pulse Rate 73 76 75 Respiratory Rate 16 17 22 Blood Pressure 179/86 H 172/81 H 141/71 H Pulse Oximetry 100 100 100 09/25/17 04:00 09/25/17 04:07 09/25/17 05:00 Temperature 99.2 F Pulse Rate 70 73 74 Respiratory Rate 17 16 19 Blood Pressure 161/79 H 166/78 H Pulse Oximetry 100 100 100 09/25/17 06:00 09/25/17 07:00 09/25/17 07:57 Temperature 98.1 F Pulse Rate 75 72 Respiratory Rate 18 18 16 Blood Pressure 153/74 H 152/74 H Pulse Oximetry 100 100 100 09/25/17 08:00 09/25/17 08:55 09/25/17 09:00 Temperature Pulse Rate 71 71 71 Respiratory Rate 17 16 16 Blood Pressure 174/83 H 177/82 H Pulse Oximetry 100 100 09/25/17 10:00 09/25/17 10:30 09/25/17 13:00 Temperature 98.3 F Pulse Rate 76 75 Respiratory Rate 22 17 Blood Pressure 162/78 H 158/78 H Pulse Oximetry 100 100 100 Intake & Output 09/24/17 09/25/17 09/25/17 18:59 06:59 18:59 Intake Total 538 / 538 300 / 300 550 / 550 Output Total 2400 / 2400 300 / 300 Balance -1862 / -1862 300 / 300 250 / 250 Weight 66.9 kg Intake: IV 350 / 350 300 / 300 50 / 50 Precedex Inj 200 MCG In NS Inj 100 / 100 250 / 250 50 / 50 48 ML @ 0.2 MCG/KG/HR 3.82 mls/ hr IV.CONT TITRATE PRN Rx#: [id number] Mycamine Inj 100 MG In NS Inj 100 / 100 100 ML @ 100 mls/hr IV.SIG Q24H RICARDO Rx#:[id number] Zosyn 2.25 GM Premix 50 ML @ 150 / 150 50 / 50 100 mls/hr IV.SIG Q6HR RICARDO Rx#: [id number] Tube Feeding 138 / 138 Water Bolus Amount 50 / 50 Anesthesia Amount 500 / 500 Output: Estimated Blood Loss 100 / 100 Urine Amount (Catheter) 2400 / 2400 200 / 200 Indwelling Urethral Catheter 2400 / 2400 200 / 200 Wound Vac Amount 0 / 0 Right Leg 0 / 0 Other: Mode Setting Right Leg Continuous Continuous Continuous Date of Last Bowel Movement 09/23/17 09/23/17 09/23/17 # Bowel Movements 4 Result Diagrams: 09/25/17 05:20 09/25/17 05:20 Other Results: Microbiology 09/22/17 16:30 Bronchial - Right Upper Lobe Gram Stain - Final 09/22/17 16:30 Bronchial - Right Upper Lobe Bronchial Culture - Final Rare growth normal respiratory sánchez 09/19/17 11:53 Blood - Peripheral Aerobic Blood Culture - Final No growth in 5 days 09/19/17 11:53 Blood - Peripheral Anaerobic Blood Culture - Final No growth in 5 days 09/19/17 11:58 Blood - Peripheral Aerobic Blood Culture - Final No growth in 5 days 09/19/17 11:58 Blood - Peripheral Anaerobic Blood Culture - Final No growth in 5 days 09/18/17 06:56 Blood - Peripheral Aerobic Blood Culture - Final Group B beta Strep 09/18/17 06:56 Blood - Peripheral Anaerobic Blood Culture - Final No growth in 5 days 09/18/17 04:05 Blood - Peripheral Aerobic Blood Culture - Final No growth in 5 days 09/18/17 04:05 Blood - Peripheral Anaerobic Blood Culture - Final No growth in 5 days 09/20/17 10:11 Wound - Leg Gram Stain - Final 09/20/17 10:11 Wound - Leg Wound Culture - Final Group B beta Strep 09/20/17 10:11 Other Acid Fast Bacilli Smear - Final No acid fast bacilli seen 09/20/17 10:11 Other Fungal Smear - Final No fungal elements seen 09/18/17 09:45 Catheterized Urine Urine Culture - Final Talia glabrata Imaging: Foot X-Ray 09/17/17 02:18 CONCLUSION: 1. Fracture deformity of the calcaneus with large overlying soft tissue defect which extends into the fracture. Chest X-Ray 09/18/17 00:35 CONCLUSION: 1. Interval placement of right internal jugular central venous line with no pneumothorax. 2. No acute cardiopulmonary disease. Foot MRI 09/19/17 00:00 CONCLUSION: Nearly all of the calcaneus is involved by osteomyelitis. A large fracture cleft has developed as above. There is gas in the soft tissues, fracture cleft, subtalar joint and focally in the talus adjacent to the sinus Tarsi. No definite talar osteomyelitis. Aorta w/Runoff CTA 09/19/17 09:45 CONCLUSION: 1. The examination demonstrates normal inflow and runoff to both lower extremities. 2. There is gas diffusely throughout the soft tissues of the right foot and ankle concerning for infection. Chest X-Ray 09/20/17 00:00 CONCLUSION: 1. ETT in good position. 2. Improved aeration of the left lung with persistent diffuse patchy bilateral airspace disease. Chest X-Ray 09/20/17 12:02 CONCLUSION: Bilateral areas of consolidation being worse on the left. These have progressed since the prior exam. Chest X-Ray 09/21/17 07:15 CONCLUSION: 1. Stable ETT and right IJ central line. NGT beyond the GE junction. 2. Stable diffuse patchy bilateral airspace disease. 3. No significant interval change. Chest X-Ray 09/22/17 00:00 CONCLUSION: 1. Interval development of right upper lobe consolidation with volume loss. 2. Improved infiltrates in the left lung with some residual airspace opacities lower central lung. Chest X-Ray 09/23/17 06:00 CONCLUSION: 1. Resolved right upper lobe consolidation. 2. Continued improvement in left lung infiltrates with some residual in the retrocardiac region. Chest X-Ray 09/24/17 06:00 CONCLUSION: Stable exam. Objective Remarks: GENERAL: Patient is 52 yo lying in bed intubated SKIN: Warm and dry. HEAD: Normocephalic. EYES: No scleral icterus. No injection or drainage. NECK: Supple, trachea midline. No JVD or lymphadenopathy. Orally intubated CARDIOVASCULAR: Regular rate and rhythm without murmurs, gallops, or rubs. RESPIRATORY: Breath sounds equal bilaterally. No accessory muscle use. No wheezes or crackles anteriorly GASTROINTESTINAL: Abdomen soft, non-tender, nondistended. MUSCULOSKELETAL: + 1 edema on left, right BKA. Status post closure Neuro: Intubated cranial nerves II through XII grossly intact. Moves all 4 extremities spontaneously to command. Assessment and Plan - Assessment and Plan Plan: NEURO.Psych: Metabolic encephalopathy Pain secondary to R foot osteomyelitis Off sedation present dexmedetomidine titrated for a rass of 0. Monitor neuro status On acetaminophen 650 every 6 fever and decoding 5 mg every 4 hours as needed for pain. RESP: Acute respiratory failure Prior tobacco abuse Continue with vent support keep sats >92% On CPAP with PS 10, PEEP:5 and FIO2 40% Bronchodilators, ICU vent bundle. s/p bronchoscopy 09/22 BAL: NGTD Discontinue diuretics-furosemide 40mg IV daily Status post bronchoscopy 09/22. Mucous plugging right upper lobe. No growth to date. CV: Septic shock- Resolved Hypertension Monitor HR and BP keep MAP>65mmHg Place on metoprolol tartrate 50mg Q12 Lactic acid: 1.2 Echo showed EF 65-70% D/c furosemide GI: Tube feeds on hold for possible extubation.(Glucerna 1.5 with goal rate 45ml/hr) Pantoprazole 40mg daily for GI prophylaxis FEN/RENAL: MARIO Hypernatremia Hypokalemia Monitor renal function, I/O's, electrolytes replacement per protocol Creatinin continue to monitor daily D/c furosemide Potassium chloride IV 1 now. Recheck in a.m. ID: s/p Septic shock Right foot osteomyelitis Funguria/Talia glabrata UTI C. difficile Continue Micafungin for Talia glabrata UTI. Continue piperacillin/tazobactam ID is following Monitor for signs of infections ( Fever, WBC) C diff PCR positive will add PO Vanco 125mg QID with metronidazole 500 every 8. Podiatry and vascular surgery ( Dr. Lockett) are following s/p right BKA on 09/20. Redo second closure 09/25 F/u Bronch with BAL, culture- NGTD 09/20 Wound culture: GBS BC 09/19: NGTD BC 09/18 1/ bottles Group B beta strep Urine cx 09/18: C. Glabrata HEME: Leukocytosis Normocytic anemia Monitor CBC ENDO: Diabetes mellitus SSI for glycemic control PROPH: Pantoprazole for stress ulcer prophylaxis not on chemical AC prophylaxis due to anemia and procedures s/p Right BKA 09/20. Heparin 5000 U sq q 12hrs ACCESS: Right IJ central venous line placed 09/18, peripheral IV's Full code Level 3 Attempted to contact Mr. Middleton at [phone] to discuss care . Received voicemail that [phone] is not available. No messages left so as not to violate HIPAA laws.
[2017-09-25] MEDS: Sod Chloride 0.9% Inj 1,000 ML IV.CONT SCH (16:07)
--- NOTE | 2017-09-25 17:06 | MP ---
cc: Tim Ugarte MD DATE OF OPERATION: 09/25/2017 PREOPERATIVE DIAGNOSIS: Status post right guillotine below-knee amputation. POSTOPERATIVE DIAGNOSIS: Status post right guillotine [id number] amputation. OPERATIVE PROCEDURE: Second stage revision and closure of the right BKA. SURGEON: Tim Ugarte MD ANESTHESIA: General. ESTIMATED BLOOD LOSS: 100 mL DESCRIPTION OF PROCEDURE: The patient was prepped and draped in usual fashion and a posterior flap outlined on the skin with indelible marker. Then, incision made anteriorly over the tibia with a 10 blade and continued laterally down with cautery. The incision was deepened through the fascia and then laterally to the anterior compartment to the level of the anterior tibial artery and veins, which were clamped, divided, ligated. The tibia and fibula are exposed with a periosteal elevator to about an inch and a half above the level of the skin incision and then both transected with oscillating saw, and then the rest of the posterior flap created with amputation knife and the specimen removed. At this point, meticulous hemostasis obtained with 0 Vicryl [id number] stick ties for posterior tibial and peroneal arteries. Area irrigated with copious amounts of saline. Small bleeders cauterized. The sciatic nerve is pulled and transected. Same is done with the anterior tibial nerve and allowed to retract. Flap is now turned forward and then incision closed with 0 Vicryl for the deep fascial layers, 0 Vicryl for the fascia at the fascia superficial layers and then skin was closed with 2-0 Prolene vertical mattress stitches. A dressing applied. The patient tolerated the procedure well. MD SYLVIA Morales/CHAI , 04:50 PM , 04:58 PM
[2017-09-26] MEDS: Insulin NovoLOG Aspart Correctional Sugar Inj SQ SCH ×6 (00:17→21:39)
[2017-09-26] MEDS: Piperacil/Tazo 2.25 GM Premix 50 ML IV.SIG SCH ×2 (00:18→06:59)
[2017-09-26] MEDS: Sod Chloride 0.9% Inj 1,000 ML IV.CONT SCH (03:33)
[2017-09-26] MEDS: Morphine Inj 4 MG/ML Vial IV.PUSH PRN (05:28)
--- NOTE | 2017-09-26 05:41 | XR ---
EXAM DATE: 09/26/2017 5:02 AM EDT AGE/SEX: 52 years / Female INDICATIONS: Shortness of breath. CLINICAL DATA: This is the patient's subsequent encounter. Patient reports that signs and symptoms h ave been present for 1 week and indicates a pain score of Nonresponsive. MEDICAL/SURGICAL HISTORY: . Diabetes. Hypertension . . Right foot surgery. [place] [facility] [place]. . FINDINGS: Right jugular line noted. Mild patchy alveolar infiltrates are seen greatest in the left lower lobe a nd right medial lung base. Osseous structures are intact. CONCLUSION: Bilateral infiltrates. Electronically signed by: Shayan Perez MD 09/26/2017 5:39 AM EDT
[2017-09-26 05:42] LABS: Baso # (Auto) 0.1 th/mm3 (0.0-0.2); Baso % (Auto) 0.3 % (0.0-2.0); Eos % (Auto) 0.2 % (0.0-4.0); Hematocrit 27.4 % (35.0-46.0); Hemoglobin 8.5 gm/dL (11.6-15.3); Lymph # (Auto) 3.6 th/mm3 (1.0-4.8); Lymph % (Auto) 19.2 % (9.0-44.0); Mean Corpuscular HGB Conc 31.1 % (32.0-36.0); Mean Corpuscular Hemoglobin 28.1 pg (27.0-34.0); Mean Corpuscular Volume 90.4 fL (80.0-100.0); Mean Platelet Volume 9.4 fL (7.0-11.0); Mono # (Auto) 0.8 th/mm3 (0.0-0.9); Mono % (Auto) 4.3 % (0.0-8.0); Neut # (Auto) 14.4 th/mm3 (1.8-7.7); Platelet Count 295 th/mm3 (150-450); Red Blood Count 3.03 mil/mm3 (4.00-5.30); Red Cell Distribution Width 14.8 % (11.6-17.2)
[2017-09-26 06:10] LABS: Alanine Aminotransferase 19 U/L (10-53); Albumin 1.7 g/dL (3.4-5.0); Anion Gap 12 meq/L (5-15); Aspartate Aminotransferase 24 U/L (15-37); Blood Urea Nitrogen 30 mg/dL (7-18); Calcium 7.8 mg/dL (8.5-10.1); Carbon Dioxide 26.9 meq/L (21.0-32.0); Chloride 108 meq/L (98-107); Glomerular Filtration Rate 34 mL/min (>89); Glucose,Random 175 mg/dL (74-106); Magnesium 2.1 mg/dL (1.5-2.5); Phosphorus 3.6 mg/dL (2.5-4.9); Potassium 3.2 meq/L (3.5-5.1); Sodium 147 meq/L (136-145)
[2017-09-26 06:24] LABS: Alkaline Phosphatase 387 U/L (45-117); Total Protein 7.6 g/dL (6.4-8.2)
[2017-09-26] MEDS: Pantoprazole Inj 40 MG Vial IV.PUSH SCH (10:16)
[2017-09-26] MEDS: Senna/Docusate Sodium 8.6/50 MG Tablet PO SCH ×2 (10:17→21:40)
[2017-09-26] MEDS: Metoprolol Tartrate 50 MG Tablet PO SCH ×2 (10:18→21:40)
[2017-09-26] MEDS: Heparin - SQ 10,000 UNITS/ML Vial SQ SCH ×2 (10:18→21:40)
[2017-09-26] MEDS: Mupirocin 2% Nasal Oint Topical Syringe EACH NARE SCH ×2 (10:19→21:40)
[2017-09-26] MEDS: Potassium Chlor 40 mEq Premix 40 MEQ/100 ML PIGGYBACK IV.SIG PRN (10:21)
--- NOTE | 2017-09-26 12:35 | P.PNID ---
Subjective Remarks: Patient had revised R. 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 Extubated. Lethargic. Discussed with RN. No BM this today. Afebrile. Wound culture has group B strep. Blood culture has Group B strep. Patient is post right BKA. This is a 52-year-old white female who was admitted to the hospital after she presented with pain in her right foot. The patient was in the hospital between 08/21 and 08/29 and was being treated for diabetic foot ulcer with MRSA infection of the right foot. She states that the problem began approximately 2 weeks prior, and she was seen by the lens hardener and had debridement and worsened. She left the hospital against medical advice on 08/29/2017. She states that she had to get back to work because she needed the money to pay her rent. However, she was unable to work and eventually presented to the emergency department because of worsening of the wound with swelling and redness of the foot. Her white blood cell count was 20.5 in the emergency department with 17% bands, and she had an abnormal urinalysis. Her heart rate was 121 and temperature was 99.1 on admission. Her blood sugar was greater than 600. The patient is currently receiving Levophed. She is awake and alert. X-ray of the foot shows fracture deformity of the calcaneus with a large overlying soft tissue defect extending into the fracture. Lines: peripheral line without evidence of infection. Past Medical History: PAST MEDICAL HISTORY: Diabetes mellitus, hypertension, hepatitis C, and diabetic neuropathy. Allergies/Adverse Reactions: Allergies No Known Allergies Allergy (Unverified 08/02/17 06:11) Objective Vital Signs 09/25/17 13:00 09/25/17 14:00 09/25/17 15:00 Temperature 98.3 F 98.1 F 98.1 F Pulse Rate 75 77 78 Respiratory Rate 17 18 17 Blood Pressure 158/78 H 143/70 H 151/71 H Pulse Oximetry 100 100 100 09/25/17 15:50 09/25/17 15:51 09/25/17 16:00 Temperature 98.4 F Pulse Rate 78 86 Respiratory Rate 25 H 16 Blood Pressure 137/66 Pulse Oximetry 100 100 09/25/17 17:00 09/25/17 18:00 09/25/17 19:00 Temperature 98.9 F 99.1 F Pulse Rate 90 96 H 96 H Respiratory Rate 17 15 17 Blood Pressure 145/67 H 150/65 H 150/72 H Pulse Oximetry 99 100 100 09/25/17 20:00 09/25/17 20:25 09/25/17 20:48 Temperature 98.9 F Pulse Rate 97 H 99 H Respiratory Rate 14 20 18 Blood Pressure 149/72 H Pulse Oximetry 100 100 09/25/17 21:00 09/25/17 22:00 09/25/17 23:00 Temperature Pulse Rate 100 H 92 H 97 H Respiratory Rate 15 14 20 Blood Pressure 146/66 H 147/73 H 149/76 H Pulse Oximetry 100 99 99 09/26/17 00:00 09/26/17 00:37 09/26/17 01:00 Temperature 99.0 F Pulse Rate 96 H 90 96 H Respiratory Rate 30 H 18 17 Blood Pressure 171/81 H Pulse Oximetry 100 100 09/26/17 01:30 09/26/17 02:00 09/26/17 03:00 Temperature Pulse Rate 96 H 94 H 95 H Respiratory Rate 17 17 20 Blood Pressure 160/79 H 155/76 H 167/80 H Pulse Oximetry 100 100 99 09/26/17 03:59 09/26/17 04:00 09/26/17 05:00 Temperature 98.8 F Pulse Rate 95 H 96 H 100 H Respiratory Rate 16 20 20 Blood Pressure 169/81 H 144/73 H Pulse Oximetry 100 100 09/26/17 06:00 09/26/17 07:00 09/26/17 08:00 Temperature 98.5 F 98.5 F Pulse Rate 95 H 99 H 99 H Respiratory Rate 25 H 15 15 Blood Pressure 162/76 H 155/79 H 155/79 H Pulse Oximetry 100 100 100 09/26/17 09:00 09/26/17 10:00 09/26/17 11:00 Temperature 98.4 F 98.3 F 98.3 F Pulse Rate 100 H 101 H 89 Respiratory Rate 19 20 18 Blood Pressure 165/77 H 155/77 H 157/74 H Pulse Oximetry 100 96 98 Intake & Output 09/25/17 09/26/17 09/26/17 18:59 06:59 18:59 Intake Total 900 / 900 1050 / 1050 Output Total 1100 / 1100 Balance -200 / -200 1050 / 1050 Weight 69.9 kg Intake: IV 400 / 400 1050 / 1050 Precedex Inj 200 MCG In NS Inj 100 / 100 48 ML @ 0.2 MCG/KG/HR 3.82 mls/ hr IV.CONT TITRATE PRN Rx#: [id number] NS Inj 1,000 ML @ 84 mls/hr IV. 1000 / 1000 CONT .[id number] RICARDO Rx#:[id number] Mycamine Inj 100 MG In NS Inj 100 / 100 100 ML @ 100 mls/hr IV.SIG Q24H RICARDO Rx#:[id number] Zosyn 2.25 GM Premix 50 ML @ 100 / 100 50 / 50 100 mls/hr IV.SIG Q6HR RICARDO Rx#: [id number] KCl 40 mEq Premix Inj 40 meq In 100 / 100 100 ml @ 25 mls/hr IV.SIG Q4H PRN Rx#:[id number] Anesthesia Amount 500 / 500 Output: Estimated Blood Loss 100 / 100 Urine Amount (Catheter) 1000 / 1000 Indwelling Urethral Catheter 1000 / 1000 Other: Mode Setting Right Leg Continuous Date of Last Bowel Movement 09/23/17 09/23/17 09/23/17 # Bowel Movements 0 09/24/17 12:24 Catheterized Urine Urine Culture - Final No growth in 48 hours 09/22/17 16:30 Bronchial - Right Upper Lobe Gram Stain - Final 09/22/17 16:30 Bronchial - Right Upper Lobe Bronchial Culture - Final Rare growth normal respiratory sánchez 09/19/17 11:53 Blood - Peripheral Aerobic Blood Culture - Final No growth in 5 days 09/19/17 11:53 Blood - Peripheral Anaerobic Blood Culture - Final No growth in 5 days 09/19/17 11:58 Blood - Peripheral Aerobic Blood Culture - Final No growth in 5 days 09/19/17 11:58 Blood - Peripheral Anaerobic Blood Culture - Final No growth in 5 days 09/18/17 06:56 Blood - Peripheral Aerobic Blood Culture - Final Group B beta Strep 09/18/17 06:56 Blood - Peripheral Anaerobic Blood Culture - Final No growth in 5 days 09/18/17 04:05 Blood - Peripheral Aerobic Blood Culture - Final No growth in 5 days 09/18/17 04:05 Blood - Peripheral Anaerobic Blood Culture - Final No growth in 5 days Lab - Hematology Results 09/25/17 09/26/17 05:20 04:40 WBC 12.4 H 19.0 H D RBC 3.40 L 3.03 L Hgb 9.5 L 8.5 L Hct 29.9 L 27.4 L MCV 87.9 90.4 MCH 28.0 28.1 MCHC 31.8 L 31.1 L RDW 15.2 14.8 Plt Count 297 295 MPV 9.4 9.4 Neut % (Auto) 70.1 H 76.0 H Lymph % (Auto) 24.8 19.2 [place] % (Auto) 4.0 4.3 Eos % (Auto) 0.6 0.2 Baso % (Auto) 0.5 0.3 Neut # (Auto) 8.7 H 14.4 H Lymph # (Auto) 3.1 3.6 [place] # (Auto) 0.5 0.8 Eos # (Auto) 0.1 0.0 Baso # (Auto) 0.1 0.1 WBC Differential . . Differential Comment Auto diff final Auto diff final Lab - Chemistry Results 09/24/17 09/24/17 09/25/17 15:48 19:40 00:37 Sodium Potassium Chloride Carbon Dioxide Anion Gap BUN Creatinine Estimated GFR POC Glucose 226 H 191 H 253 H Random Glucose Calcium Phosphorus Magnesium Total Bilirubin AST ALT Alkaline Phosphatase Total Protein Albumin 09/25/17 09/25/17 09/25/17 04:55 05:20 08:34 Sodium 146 H Potassium 3.3 L Chloride 104 Carbon Dioxide 31.8 Anion Gap 10 BUN 34 H Creatinine 1.81 H Estimated GFR 29 L POC Glucose 222 H 218 H Random Glucose 187 H Calcium 8.3 L Phosphorus 3.8 Magnesium 2.1 Total Bilirubin AST ALT Alkaline Phosphatase Total Protein Albumin 09/25/17 09/25/17 09/25/17 14:02 16:14 20:29 Sodium Potassium Chloride Carbon Dioxide Anion Gap BUN Creatinine Estimated GFR POC Glucose 230 H 267 H 199 H Random Glucose Calcium Phosphorus Magnesium Total Bilirubin AST ALT Alkaline Phosphatase Total Protein Albumin 09/25/17 09/26/17 09/26/17 23:59 04:07 04:40 Sodium 147 H Potassium 3.2 L Chloride 108 H Carbon Dioxide 26.9 Anion Gap 12 BUN 30 H Creatinine 1.58 H Estimated GFR 34 L POC Glucose 183 H 174 H Random Glucose 175 H Calcium 7.8 L Phosphorus 3.6 Magnesium 2.1 Total Bilirubin 0.4 AST 24 ALT 19 Alkaline Phosphatase 387 H Total Protein 7.6 Albumin 1.7 L 08/08/18 08/08/18 08:33 12:22 Sodium Potassium Chloride Carbon Dioxide Anion Gap BUN Creatinine Estimated GFR POC Glucose 211 H 195 H Random Glucose Calcium Phosphorus Magnesium Total Bilirubin AST ALT Alkaline Phosphatase Total Protein Albumin Imaging: ITS Impressions Foot X-Ray 09/17/17 02:18 CONCLUSION: 1. Fracture deformity of the calcaneus with large overlying soft tissue defect which extends into the fracture. Foot MRI 09/19/17 00:00 CONCLUSION: Nearly all of the calcaneus is involved by osteomyelitis. A large fracture cleft has developed as above. There is gas in the soft tissues, fracture cleft, subtalar joint and focally in the talus adjacent to the sinus Tarsi. No definite talar osteomyelitis. Aorta w/Runoff CTA 09/19/17 09:45 CONCLUSION: 1. The examination demonstrates normal inflow and runoff to both lower extremities. 2. There is gas diffusely throughout the soft tissues of the right foot and ankle concerning for infection. Chest X-Ray 09/26/17 06:00 CONCLUSION: Bilateral infiltrates. Physical Exam: PHYSICAL EXAMINATION: GENERAL: No acute distress. Lethargic. HEENT: The head is atraumatic. No icterus. Oropharynx: Moist mucosa. No visible lesions. NECK: Supple without adenopathy or swelling. LUNGS: Decreased breath sounds. HEART: Regular S1 and S2. No murmurs heard. ABDOMEN: Bowel sounds present. Soft and nontender. EXTREMITIES: The right leg is amputated below the knee. No erythema. No CCE. SKIN: No rash. NEUROLOGIC: Non focal. PSYCHIATRIC: Unable to assess. Assessment and Plan - Plan ASSESSMENT: 1. 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 Group B strep. Patient is now post amputation AKA 09/20/2017, Revised 09/25/2017. 2. Diabetic foot infection. MRSA infection prior to amputation. 3. Sepsis due to group B beta strep. Indicated by tachycardia and elevated respiratory rate along with increased white blood cell count and abnormal urinalysis and foot wound culture. 4. Acute kidney disease. 5. Talia glabrata UTI. Repeat urine negative. 6. C. dif colitis. RECOMMENDATIONS: 1. Stop piperacillin/tazobactam. 2. Stop micafungin. 3. Continue PO vancomycin for c. diff. x 10 days. Monitor WBC. 4. Monitor renal function 5. Monitor temp. 6. Monitor clinical status.
--- NOTE | 2017-09-26 12:46 | P.PNCC ---
Subjective Subjective Remarks/Hospital Course: 52-year-old female with past medical history of hepatitis C, diabetes , hypertension, ulcer of the right heel [facility] when she was admitted for right foot osteomyelitis. She had recently been admitted for this complaint 08/21 and left AMA on 08/29. During that admission she had an MRI of the foot 08/24/17 it was consistent with osteomyelitis. Wound cultures were positive for MRSA and group B strep. Blood cultures 08/21 were negative. She had normal ABIs. She was treated with Abx, surgical debridement by Dr. Valentine, and wound vac. She was readmitted for worsening pain in her heel. She had severe hyperglycemia without DKA. She was treated with an insulin drip and then transition to subcut. She has been hypotensive throughout the day and has been treated with fluid resuscitation. She has a 3.5 L of fluid bolus in addition to ~ 2 Liters of MIVF and meds. She has also received 2 units PRBC for Hgb 6.4 without obvious source of bleeding. She remains hypotensive and thus [facility] has been consulted to assist with hemodynamic management. She has been evaluated by podiatry, and R CAROLYN recommended. Awaiting vascular surgery consultation. She denies chest pain, shortness of breath, abdominal pain, nausea, vomiting, flank pain. 09/19 Patient is lying in bed in NAD. On room air oxygen. afebrile. Off Levophed. 09/20 Patient is lying in bed in NAD. For OR today for right BKA 09/21 Patient was intubated yesterday for resp failure. Sedated with Fentanyl and Versed . Afebrile. 09/22: Remains intubated sedated, on Versed and Fentanyl. CXR shows new RUL consolidation/volume loss. Plan for bronchoscopy later today. Also sent for sputum culture 09/23: Sedated with Versed and fentanyl infusions. Currently held patient remains obtunded on the vent. Today's chest x-ray shows resolution of the right upper lobe atelectasis after bronchoscopy yesterday. Tolerating spontaneous breathing trials. Creatinine is increased to 1.8 today, urine output adequate 09/24 No events overnight. On CPAP with PS 10, PEEP:5 and FIO2: 40%. Afebrile. On no drips. 09/25: Status post second step of right below the knee amputation closure by Dr. Lyons Will attempt PSVT trial attempt to extubate. Currently 4% FiO2 PEEP of 5. SUBJECTIVE: 09/26: Afebrile. Status post extubation yesterday without complication. Currently on diabetic diet. No new issues overnight. Replace potassium. Objective Vital Signs / I&O: Vital Signs 09/25/17 13:00 09/25/17 14:00 09/25/17 15:00 Temperature 98.3 F 98.1 F 98.1 F Pulse Rate 75 77 78 Respiratory Rate 17 18 17 Blood Pressure 158/78 H 143/70 H 151/71 H Pulse Oximetry 100 100 100 09/25/17 15:50 09/25/17 15:51 09/25/17 16:00 Temperature 98.4 F Pulse Rate 78 86 Respiratory Rate 25 H 16 Blood Pressure 137/66 Pulse Oximetry 100 100 09/25/17 17:00 09/25/17 18:00 09/25/17 19:00 Temperature 98.9 F 99.1 F Pulse Rate 90 96 H 96 H Respiratory Rate 17 15 17 Blood Pressure 145/67 H 150/65 H 150/72 H Pulse Oximetry 99 100 100 09/25/17 20:00 09/25/17 20:25 09/25/17 20:48 Temperature 98.9 F Pulse Rate 97 H 99 H Respiratory Rate 14 20 18 Blood Pressure 149/72 H Pulse Oximetry 100 100 09/25/17 21:00 09/25/17 22:00 09/25/17 23:00 Temperature Pulse Rate 100 H 92 H 97 H Respiratory Rate 15 14 20 Blood Pressure 146/66 H 147/73 H 149/76 H Pulse Oximetry 100 99 99 09/26/17 00:00 09/26/17 00:37 09/26/17 01:00 Temperature 99.0 F Pulse Rate 96 H 90 96 H Respiratory Rate 30 H 18 17 Blood Pressure 171/81 H Pulse Oximetry 100 100 09/26/17 01:30 09/26/17 02:00 09/26/17 03:00 Temperature Pulse Rate 96 H 94 H 95 H Respiratory Rate 17 17 20 Blood Pressure 160/79 H 155/76 H 167/80 H Pulse Oximetry 100 100 99 09/26/17 03:59 09/26/17 04:00 09/26/17 05:00 Temperature 98.8 F Pulse Rate 95 H 96 H 100 H Respiratory Rate 16 20 20 Blood Pressure 169/81 H 144/73 H Pulse Oximetry 100 100 09/26/17 06:00 09/26/17 07:00 09/26/17 08:00 Temperature 98.5 F 98.5 F Pulse Rate 95 H 99 H 99 H Respiratory Rate 25 H 15 15 Blood Pressure 162/76 H 155/79 H 155/79 H Pulse Oximetry 100 100 100 09/26/17 09:00 09/26/17 10:00 09/26/17 11:00 Temperature 98.4 F 98.3 F 98.3 F Pulse Rate 100 H 101 H 89 Respiratory Rate 19 20 18 Blood Pressure 165/77 H 155/77 H 157/74 H Pulse Oximetry 100 96 98 Intake & Output 09/25/17 09/26/17 09/26/17 18:59 06:59 18:59 Intake Total 900 / 900 1050 / 1050 Output Total 1100 / 1100 Balance -200 / -200 1050 / 1050 Weight 69.9 kg Intake: IV 400 / 400 1050 / 1050 Precedex Inj 200 MCG In NS Inj 100 / 100 48 ML @ 0.2 MCG/KG/HR 3.82 mls/ hr IV.CONT TITRATE PRN Rx#: [id number] NS Inj 1,000 ML @ 84 mls/hr IV. 1000 / 1000 CONT .[id number] RICARDO Rx#:[id number] Mycamine Inj 100 MG In NS Inj 100 / 100 100 ML @ 100 mls/hr IV.SIG Q24H RICARDO Rx#:[id number] Zosyn 2.25 GM Premix 50 ML @ 100 / 100 50 / 50 100 mls/hr IV.SIG Q6HR RICARDO Rx#: [id number] KCl 40 mEq Premix Inj 40 meq In 100 / 100 100 ml @ 25 mls/hr IV.SIG Q4H PRN Rx#:[id number] Anesthesia Amount 500 / 500 Output: Estimated Blood Loss 100 / 100 Urine Amount (Catheter) 1000 / 1000 Indwelling Urethral Catheter 1000 / 1000 Other: Mode Setting Right Leg Continuous Date of Last Bowel Movement 09/23/17 09/23/17 09/23/17 # Bowel Movements 0 Result Diagrams: 09/26/17 04:40 09/26/17 04:40 Other Results: Microbiology 09/24/17 12:24 Catheterized Urine Urine Culture - Final No growth in 48 hours 09/22/17 16:30 Bronchial - Right Upper Lobe Gram Stain - Final 09/22/17 16:30 Bronchial - Right Upper Lobe Bronchial Culture - Final Rare growth normal respiratory sánchez 09/19/17 11:53 Blood - Peripheral Aerobic Blood Culture - Final No growth in 5 days 09/19/17 11:53 Blood - Peripheral Anaerobic Blood Culture - Final No growth in 5 days 09/19/17 11:58 Blood - Peripheral Aerobic Blood Culture - Final No growth in 5 days 09/19/17 11:58 Blood - Peripheral Anaerobic Blood Culture - Final No growth in 5 days 09/18/17 06:56 Blood - Peripheral Aerobic Blood Culture - Final Group B beta Strep 09/18/17 06:56 Blood - Peripheral Anaerobic Blood Culture - Final No growth in 5 days 09/18/17 04:05 Blood - Peripheral Aerobic Blood Culture - Final No growth in 5 days 09/18/17 04:05 Blood - Peripheral Anaerobic Blood Culture - Final No growth in 5 days 09/20/17 10:11 Wound - Leg Gram Stain - Final 09/20/17 10:11 Wound - Leg Wound Culture - Final Group B beta Strep 09/20/17 10:11 Other Acid Fast Bacilli Smear - Final No acid fast bacilli seen 09/20/17 10:11 Other Fungal Smear - Final No fungal elements seen 09/18/17 09:45 Catheterized Urine Urine Culture - Final Talia glabrata Imaging: Foot X-Ray 09/17/17 02:18 CONCLUSION: 1. Fracture deformity of the calcaneus with large overlying soft tissue defect which extends into the fracture. Chest X-Ray 09/18/17 00:35 CONCLUSION: 1. Interval placement of right internal jugular central venous line with no pneumothorax. 2. No acute cardiopulmonary disease. Foot MRI 09/19/17 00:00 CONCLUSION: Nearly all of the calcaneus is involved by osteomyelitis. A large fracture cleft has developed as above. There is gas in the soft tissues, fracture cleft, subtalar joint and focally in the talus adjacent to the sinus Tarsi. No definite talar osteomyelitis. Aorta w/Runoff CTA 09/19/17 09:45 CONCLUSION: 1. The examination demonstrates normal inflow and runoff to both lower extremities. 2. There is gas diffusely throughout the soft tissues of the right foot and ankle concerning for infection. Chest X-Ray 09/20/17 00:00 CONCLUSION: 1. ETT in good position. 2. Improved aeration of the left lung with persistent diffuse patchy bilateral airspace disease. Chest X-Ray 09/20/17 12:02 CONCLUSION: Bilateral areas of consolidation being worse on the left. These have progressed since the prior exam. Chest X-Ray 09/21/17 07:15 CONCLUSION: 1. Stable ETT and right IJ central line. NGT beyond the GE junction. 2. Stable diffuse patchy bilateral airspace disease. 3. No significant interval change. Chest X-Ray 09/22/17 00:00 CONCLUSION: 1. Interval development of right upper lobe consolidation with volume loss. 2. Improved infiltrates in the left lung with some residual airspace opacities lower central lung. Chest X-Ray 09/23/17 06:00 CONCLUSION: 1. Resolved right upper lobe consolidation. 2. Continued improvement in left lung infiltrates with some residual in the retrocardiac region. Chest X-Ray 09/24/17 06:00 CONCLUSION: Stable exam. Chest X-Ray 09/26/17 06:00 CONCLUSION: Bilateral infiltrates. Objective Remarks: GENERAL: Patient is 52 yo lying in bed in no acute distress on nasal cannula SKIN: Warm and dry. HEAD: Normocephalic. EYES: No scleral icterus. No injection or drainage. NECK: Supple, trachea midline. No JVD or lymphadenopathy. Orally intubated CARDIOVASCULAR: Regular rate and rhythm without murmurs, gallops, or rubs. RESPIRATORY: Breath sounds equal bilaterally. No accessory muscle use. No wheezes or crackles anteriorly GASTROINTESTINAL: Abdomen soft, non-tender, nondistended. MUSCULOSKELETAL: + 1 edema on left, right BKA. Status post closure NEURO: cranial nerves II through XII grossly intact. Moves all 4 extremities spontaneously to command. Assessment and Plan - Assessment and Plan Plan: NEURO.Psych: Metabolic encephalopathy Pain secondary to R foot osteomyelitis Monitor neuro status On acetaminophen 650 every 6 fever and oxycodone 5-10 mg every 4 hours as needed for pain. RESP: Acute respiratory failure Prior tobacco abuse Nasal cannula to maintain saturations greater than equal to 92% Incentive spirometry while awake Albuterol/ipratropium aerosols every 4 hours with albuterol aerosols every 2 hours as needed for dyspnea s/p bronchoscopy 09/22 BAL: NGTD Discontinue diuretics-furosemide 40mg IV daily Status post bronchoscopy 09/22. Mucous plugging right upper lobe. No growth to date. CV: Septic shock- Resolved Hypertension Monitor HR and BP keep MAP>65mmHg Continue metoprolol tartrate 50mg Q12 Lactic acid: 1.2 Echo showed EF 65-70% D/c furosemide GI: History of hepatitis C Moderate protein calorie malnutrition Advance diet as tolerated/ADA Pantoprazole 40mg daily for GI prophylaxis FEN/RENAL: MARIO Hypernatremia Hypokalemia Monitor renal function, I/O's, electrolytes replacement per protocol Creatinin continue to monitor daily D/c furosemide Potassium chloride 30 mg twice daily today. Recheck in a.m. ID: s/p Septic shock Right foot osteomyelitis Funguria/Talia glabrata UTI C. difficile 09/25 discontinued micafungin for Talia glabrata UTI. 09/25 discontinued piperacillin/tazobactam ID is following Monitor for signs of infections ( Fever, WBC) C diff PCR positive will add PO Vanco 125mg QID 10 days with metronidazole 500 every 8. Podiatry and vascular surgery ( Dr. Lockett) are following s/p right BKA on 09/20. Redo second closure 09/25 F/u Bronch with BAL, culture- NGTD 09/20 Wound culture: GBS BC 09/19: NGTD BC 09/18 02/22 bottles Group B beta strep Urine cx 09/18: C. Glabrata HEME: Leukocytosis Normocytic anemia Monitor CBC and follow trends ENDO: Diabetes mellitus SSI for glycemic control PROPH: Pantoprazole for stress ulcer prophylaxis not on chemical AC prophylaxis due to anemia and procedures s/p Right BKA 09/20. Heparin 5000 U sq q 12hrs ACCESS: Right IJ central venous line placed 09/18, peripheral IV's Full code Level 2 Stable from critical care medicine standpoint. Assign care to hospitalist in 09/27/2017 Attempted to contact Mr. Middleton at [phone] to discuss care . Received voicemail that [phone] is not available. No messages left so as not to violate HIPAA laws.
--- NOTE | 2017-09-26 17:06 | P.PNVS ---
Subjective Subjective/Hospital Course: 51-year-old female with diabetes mellitus and a huge necrotic ulcer of the left heel and necrosis of the left midfoot with exposed bone and osteomyelitis At this point there are no other options available then below-knee amputation and will go ahead with the same on Full consult dictated Thanks J 09/19/2017 Patient with peripheral vascular disease and gangrene of the right foot and non- salvageable lower leg for below-knee amputation tomorrow Second opinion rendered by Dr. Yrok. We will do CTA with a runoff to evaluate for any other vascular occlusive disease that might jeopardize either the BKA or the other leg in the future. Based on clinical exam I do not believe the patient has any inflow occlusive disease and popliteal vessels are clearly patent Patient has dorsalis pedis and posterior tibial arteries bilateral and I do not believe she has a significant degree of outflow disease either. Majority of diseases is likely in patient's foot and small vessels. Patient scheduled to undergo tomorrow right below-knee amputation was depending on the appearance of the tissues might be carried out in 2 stages first is a guillotine amputation and second stage closure or in 1 stage if tissues appear to be adequate. 09/20/2017 Patient is status post right below-knee guillotine amputation and wound VAC placement. This is infected area and primary closure with a been ill advised Patient will have wound VAC until next week in about 5-6 days should be ready for a second stage procedure and closure of the below-knee stump 09/21/2017 Patient status post right BKA guillotine amputation wound VAC is in place and serosanguineous drainage remains in the canister Patient remains intubated for apparently last night with attempted extubation patient was agitated unmanageable and bucking the ventilator Plan to take patient back to the operating room for second stage BKA revision and closure probably Sunday09/22/2017 Patient stable in the ICU Will undergo second stage closure of the below-knee amputation next week Serosanguineous drainage from the wound VAC Nothing to add to care further 09/23/2017 Status post right below-knee amputation guillotine type stage I Wound VAC in place and serosanguineous drainage We will take patient to the operating room this week for second stage procedure and closure probably middle of the week 09/24/2017 Patient remains on CPAP. Plan to take to OR tomorrow for 2nd stage closure of the BKA 09/26/2017 Patient underwent successful closure of the BKA yesterday We will leave the dressing on for 48 hours and then remove dressing tomorrow Nothing to add to care at this time Objective Vital Signs / I&O: Vital Signs 09/25/17 17:00 09/25/17 18:00 09/25/17 19:00 Temperature 98.9 F 99.1 F Pulse Rate 90 96 H 96 H Respiratory Rate 17 15 17 Blood Pressure 145/67 H 150/65 H 150/72 H Pulse Oximetry 99 100 100 09/25/17 20:00 09/25/17 20:25 09/25/17 20:48 Temperature 98.9 F Pulse Rate 97 H 99 H Respiratory Rate 14 20 18 Blood Pressure 149/72 H Pulse Oximetry 100 100 09/25/17 21:00 09/25/17 22:00 09/25/17 23:00 Temperature Pulse Rate 100 H 92 H 97 H Respiratory Rate 15 14 20 Blood Pressure 146/66 H 147/73 H 149/76 H Pulse Oximetry 100 99 99 09/26/17 00:00 09/26/17 00:37 09/26/17 01:00 Temperature 99.0 F Pulse Rate 96 H 90 96 H Respiratory Rate 30 H 18 17 Blood Pressure 171/81 H Pulse Oximetry 100 100 09/26/17 01:30 09/26/17 02:00 09/26/17 03:00 Temperature Pulse Rate 96 H 94 H 95 H Respiratory Rate 17 17 20 Blood Pressure 160/79 H 155/76 H 167/80 H Pulse Oximetry 100 100 99 09/26/17 03:59 09/26/17 04:00 09/26/17 05:00 Temperature 98.8 F Pulse Rate 95 H 96 H 100 H Respiratory Rate 16 20 20 Blood Pressure 169/81 H 144/73 H Pulse Oximetry 100 100 09/26/17 06:00 09/26/17 07:00 09/26/17 08:00 Temperature 98.5 F 98.5 F Pulse Rate 95 H 99 H 99 H Respiratory Rate 25 H 15 15 Blood Pressure 162/76 H 155/79 H 155/79 H Pulse Oximetry 100 100 100 09/26/17 09:00 09/26/17 10:00 09/26/17 11:00 Temperature 98.4 F 98.3 F 98.3 F Pulse Rate 100 H 101 H 89 Respiratory Rate 19 20 18 Blood Pressure 165/77 H 155/77 H 157/74 H Pulse Oximetry 100 96 98 09/26/17 12:00 09/26/17 13:00 09/26/17 14:00 Temperature 97.9 F 97.9 F 98 F Pulse Rate 90 92 H 102 H Respiratory Rate 18 23 35 H Blood Pressure 154/78 H 150/72 H 151/80 H Pulse Oximetry 100 98 100 09/26/17 14:38 09/26/17 15:00 Temperature Pulse Rate 95 H 93 H Respiratory Rate 18 17 Blood Pressure 167/79 H Pulse Oximetry 100 Intake & Output 09/25/17 09/26/17 09/26/17 18:59 06:59 18:59 Intake Total 900 / 900 1050 / 1050 Output Total 1100 / 1100 Balance -200 / -200 1050 / 1050 Weight 69.9 kg Intake: IV 400 / 400 1050 / 1050 Precedex Inj 200 MCG In NS Inj 100 / 100 48 ML @ 0.2 MCG/KG/HR 3.82 mls/ hr IV.CONT TITRATE PRN Rx#: [id number] NS Inj 1,000 ML @ 84 mls/hr IV. 1000 / 1000 CONT .[id number] RICARDO Rx#:[id number] Mycamine Inj 100 MG In NS Inj 100 / 100 100 ML @ 100 mls/hr IV.SIG Q24H RICARDO Rx#:[id number] Zosyn 2.25 GM Premix 50 ML @ 100 / 100 50 / 50 100 mls/hr IV.SIG Q6HR RICARDO Rx#: [id number] KCl 40 mEq Premix Inj 40 meq In 100 / 100 100 ml @ 25 mls/hr IV.SIG Q4H PRN Rx#:[id number] Anesthesia Amount 500 / 500 Output: Estimated Blood Loss 100 / 100 Urine Amount (Catheter) 1000 / 1000 Indwelling Urethral Catheter 1000 / 1000 Other: Mode Setting Right Leg Continuous Date of Last Bowel Movement 09/23/17 09/23/17 09/23/17 # Bowel Movements 0 Laboratory Results - last 24 hr 09/25/17 09/25/17 09/26/17 20:29 23:59 04:07 WBC RBC Hgb Hct MCV MCH MCHC RDW Plt Count MPV Neut % (Auto) Lymph % (Auto) Leslie % (Auto) Eos % (Auto) Baso % (Auto) Neut # (Auto) Lymph # (Auto) Leslie # (Auto) Eos # (Auto) Baso # (Auto) WBC Differential Differential Comment Sodium Potassium Chloride Carbon Dioxide Anion Gap BUN Creatinine Estimated GFR POC Glucose 199 H 183 H 174 H Random Glucose Calcium Phosphorus Magnesium Total Bilirubin AST ALT Alkaline Phosphatase Total Protein Albumin Digoxin 09/26/17 09/26/17 09/26/17 04:40 04:40 08:33 WBC 19.0 H D RBC 3.03 L Hgb 8.5 L Hct 27.4 L MCV 90.4 MCH 28.1 MCHC 31.1 L RDW 14.8 Plt Count 295 MPV 9.4 Neut % (Auto) 76.0 H Lymph % (Auto) 19.2 Leslie % (Auto) 4.3 Eos % (Auto) 0.2 Baso % (Auto) 0.3 Neut # (Auto) 14.4 H Lymph # (Auto) 3.6 Leslie # (Auto) 0.8 Eos # (Auto) 0.0 Baso # (Auto) 0.1 WBC Differential . Differential Comment Auto diff final Sodium 147 H Potassium 3.2 L Chloride 108 H Carbon Dioxide 26.9 Anion Gap 12 BUN 30 H Creatinine 1.58 H Estimated GFR 34 L POC Glucose 211 H Random Glucose 175 H Calcium 7.8 L Phosphorus 3.6 Magnesium 2.1 Total Bilirubin 0.4 AST 24 ALT 19 Alkaline Phosphatase 387 H Total Protein 7.6 Albumin 1.7 L Digoxin Less than 0.1 L 09/26/17 12:22 WBC RBC Hgb Hct MCV MCH MCHC RDW Plt Count MPV Neut % (Auto) Lymph % (Auto) Leslie % (Auto) Eos % (Auto) Baso % (Auto) Neut # (Auto) Lymph # (Auto) Leslie # (Auto) Eos # (Auto) Baso # (Auto) WBC Differential Differential Comment Sodium Potassium Chloride Carbon Dioxide Anion Gap BUN Creatinine Estimated GFR POC Glucose 195 H Random Glucose Calcium Phosphorus Magnesium Total Bilirubin AST ALT Alkaline Phosphatase Total Protein Albumin Digoxin Microbiology 09/24/17 12:24 Urine Culture - Final Catheterized Urine No growth in 48 hours Impressions Chest X-Ray 09/26/17 06:00 CONCLUSION: Bilateral infiltrates.
[2017-09-27] MEDS: Insulin NovoLOG Aspart Correctional Sugar Inj SQ SCH ×6 (00:36→20:41)
[2017-09-27] MEDS: Morphine Inj 4 MG/ML Vial IV.PUSH PRN ×2 (01:43→04:43)
[2017-09-27] MEDS: Senna/Docusate Sodium 8.6/50 MG Tablet PO SCH ×2 (09:27→20:40)
[2017-09-27] MEDS: Heparin - SQ 10,000 UNITS/ML Vial SQ SCH ×2 (09:28→20:40)
[2017-09-27] MEDS: Metoprolol Tartrate 50 MG Tablet PO SCH ×2 (09:28→20:40)
[2017-09-27] MEDS: Mupirocin 2% Nasal Oint Topical Syringe EACH NARE SCH ×2 (09:28→20:40)
--- NOTE | 2017-09-27 11:03 | P.PNIM ---
Subjective Interval history: Patient reports pain is controlled. Confusion is present. Episode of nausea and vomiting this morning but no nausea when seen. She is status post right BKA on 09/20/2017 secondary to ostium mellitus. Physical Exam Vital signs: Vital Signs 09/26/17 11:00 09/26/17 12:00 09/26/17 13:00 Temperature 98.3 F 97.9 F 97.9 F Pulse Rate 89 90 92 H Respiratory Rate 18 18 23 Blood Pressure 157/74 H 154/78 H 150/72 H Pulse Oximetry 98 100 98 09/26/17 14:00 09/26/17 14:38 09/26/17 15:00 Temperature 98 F Pulse Rate 102 H 95 H 93 H Respiratory Rate 35 H 18 17 Blood Pressure 151/80 H 167/79 H Pulse Oximetry 100 100 09/26/17 16:00 09/26/17 16:30 09/26/17 17:00 Temperature 97.5 F L Pulse Rate 94 H 97 H 95 H Respiratory Rate 19 14 20 Blood Pressure 158/77 H 146/74 H 150/74 H Pulse Oximetry 100 100 100 09/26/17 17:30 09/26/17 18:00 09/26/17 18:27 Temperature Pulse Rate 93 H 96 H Respiratory Rate 21 18 24 Blood Pressure 144/75 H 141/81 H Pulse Oximetry 100 100 09/26/17 18:30 09/26/17 19:00 09/26/17 20:00 Temperature 98 F Pulse Rate 105 H 93 H 93 H Respiratory Rate 17 14 14 Blood Pressure 159/77 H 147/87 H 147/87 H Pulse Oximetry 98 100 100 09/26/17 20:25 09/26/17 21:00 09/26/17 22:00 Temperature Pulse Rate 94 H 105 H 95 H Respiratory Rate 18 22 16 Blood Pressure 147/67 H 146/73 H Pulse Oximetry 100 100 09/26/17 23:00 09/27/17 00:00 09/27/17 01:00 Temperature 98.1 F Pulse Rate 91 H 90 91 H Respiratory Rate 14 16 23 Blood Pressure 133/66 140/74 144/71 H Pulse Oximetry 99 99 100 09/27/17 02:00 09/27/17 03:00 09/27/17 04:00 Temperature 98.1 F Pulse Rate 84 85 82 Respiratory Rate 14 16 12 Blood Pressure 147/76 H 146/74 H 151/74 H Pulse Oximetry 98 99 97 09/27/17 05:00 09/27/17 06:00 09/27/17 08:51 Temperature Pulse Rate 81 83 Respiratory Rate 12 12 Blood Pressure 151/74 H 152/78 H Pulse Oximetry 96 97 99 Intake & Output 09/26/17 09/27/17 09/27/17 18:59 06:59 18:59 Intake Total 1150 / 1150 Balance 1150 / 1150 Weight 66 kg Intake: IV 1150 / 1150 NS Inj 1,000 ML @ 84 mls/hr IV. 1000 / 1000 CONT .[id number] RICARDO Rx#:[id number] KCl 40 mEq Premix Inj 40 meq In 100 / 100 100 ml @ 25 mls/hr IV.SIG Q4H PRN Rx#:[id number] Other: Date of Last Bowel Movement 09/23/17 09/26/17 Narrative: GENERAL: NAD, A&Ox2, and restraints HEAD: Normocephalic. NECK: Supple, trachea midline. No lymphadenopathy. EYES: No scleral icterus. No injection or drainage. CARDIOVASCULAR: Regular rate and rhythm without murmurs, gallops, or rubs. RESPIRATORY: Breath sounds equal bilaterally. No accessory muscle use. GASTROINTESTINAL: Abdomen soft, non-tender, nondistended. MUSCULOSKELETAL: No cyanosis, or edema. Right BKA. SKIN: Warm and dry. NEURO: No focal neurological deficits. - Urinary Catheter Management Indwelling Urethral Catheter Cath placed during this visit: yes Reason for continuing: Severe pressure ulcer/wound Insertion date: 09/17/17 Insertion time: 20:00 Results - Labs CBC & Chem 7: 09/26/17 04:40 09/26/17 21:30 Laboratory Results - last 24 hr 09/26/17 09/26/17 09/26/17 12:22 17:35 21:30 Potassium 3.8 POC Glucose 195 H 207 H 09/26/17 09/27/17 09/27/17 21:38 00:32 04:34 Potassium POC Glucose 242 H 205 H 151 H 09/27/17 08:22 Potassium POC Glucose 129 H Microbiology 09/24/17 12:24 Catheterized Urine Urine Culture - Final No growth in 48 hours Assessment and Plan - Assessment (1) Sepsis Code(s): A41.9 - Sepsis, unspecified organism Status: Acute (2) Ulcer of right heel and midfoot with necrosis of bone Code(s): L97.414 - Non-pressure 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 Right lower extremity ostium mellitus Diabetic foot infection Status post BKA Status post BKA on 09/20/2017 Continue as needed pain treatments Orthophoric ID following C. difficile colitis Continue treatment ID following Funguria/Talia glabrata UTI Treatments completed Metabolic encephalopathy Likely causes infection This should improve through time, on treatment continue restraints as needed Supportive care Monitor for improvement Acute respiratory failure Prior tobacco abuse Respiratory status improved She counseled to quit smoking Continue albuterol as needed Continue oxygen as needed Hypertension Continue baseline treatment Follow blood pressures Adjust treatments as needed Septic shock Resolved History of hepatitis C Standard precautions Outpatient management Moderate protein calorie malnutrition Continue ADA diet MARIO Hypernatremia Hypokalemia Replace electrolytes as needed Follow renal function Diabetes mellitus type 2 Follow blood sugars Insulin sliding scale Diabetic diet DVT prophylaxis Heparin
[2017-09-27 11:29] LABS: Baso # (Auto) 0.1 th/mm3 (0.0-0.2); Baso % (Auto) 0.8 % (0.0-2.0); Eos # (Auto) 0.1 th/mm3 (0.0-0.4); Eos % (Auto) 1.1 % (0.0-4.0); Hematocrit 25.4 % (35.0-46.0); Hemoglobin 8.3 gm/dL (11.6-15.3); Lymph # (Auto) 1.7 th/mm3 (1.0-4.8); Lymph % (Auto) 15.7 % (9.0-44.0); Mean Corpuscular HGB Conc 32.8 % (32.0-36.0); Mean Corpuscular Hemoglobin 29.4 pg (27.0-34.0); Mean Corpuscular Volume 89.7 fL (80.0-100.0); Mean Platelet Volume 9.5 fL (7.0-11.0); Mono # (Auto) 0.3 th/mm3 (0.0-0.9); Mono % (Auto) 2.5 % (0.0-8.0); Neut # (Auto) 8.8 th/mm3 (1.8-7.7); Neut % (Auto) 79.9 % (16.0-70.0); Platelet Count 266 th/mm3 (150-450); Red Blood Count 2.84 mil/mm3 (4.00-5.30); Red Cell Distribution Width 14.8 % (11.6-17.2)
[2017-09-27 11:59] LABS: Calcium 7.6 mg/dL (8.5-10.1); Carbon Dioxide 28.6 meq/L (21.0-32.0); Magnesium 1.9 mg/dL (1.5-2.5); Potassium 3.7 meq/L (3.5-5.1)
[2017-09-28] MEDS: Insulin NovoLOG Aspart Correctional Sugar Inj SQ SCH ×6 (01:12→21:25)
[2017-09-28 06:15] LABS: Baso # (Auto) 0.1 th/mm3 (0.0-0.2); Baso % (Auto) 1.1 % (0.0-2.0); Eos % (Auto) 0.5 % (0.0-4.0); Hemoglobin 9.1 gm/dL (11.6-15.3); Lymph # (Auto) 2.4 th/mm3 (1.0-4.8); Lymph % (Auto) 25.2 % (9.0-44.0); Mean Corpuscular HGB Conc 33.5 % (32.0-36.0); Mean Corpuscular Hemoglobin 29.2 pg (27.0-34.0); Mean Corpuscular Volume 87.1 fL (80.0-100.0); Mean Platelet Volume 9.9 fL (7.0-11.0); Mono # (Auto) 0.3 th/mm3 (0.0-0.9); Mono % (Auto) 3.3 % (0.0-8.0); Neut # (Auto) 6.7 th/mm3 (1.8-7.7); Neut % (Auto) 69.9 % (16.0-70.0); Platelet Count 287 th/mm3 (150-450); Red Cell Distribution Width 14.4 % (11.6-17.2); White Blood Count 9.5 th/mm3 (4.0-11.0)
[2017-09-28 06:37] LABS: Albumin 1.6 g/dL (3.4-5.0); Anion Gap 11 meq/L (5-15); Aspartate Aminotransferase 20 U/L (15-37); Blood Urea Nitrogen 15 mg/dL (7-18); Calcium 8.1 mg/dL (8.5-10.1); Carbon Dioxide 25.5 meq/L (21.0-32.0); Chloride 102 meq/L (98-107); Glomerular Filtration Rate 54 mL/min (>89); Glucose,Random 127 mg/dL (74-106); Potassium 3.6 meq/L (3.5-5.1); Sodium 138 meq/L (136-145)
[2017-09-28 06:38] LABS: Alanine Aminotransferase 15 U/L (10-53)
[2017-09-28 06:40] LABS: Alkaline Phosphatase 279 U/L (45-117); Total Protein 7.8 g/dL (6.4-8.2)
[2017-09-28] MEDS: Metoprolol Tartrate 50 MG Tablet PO SCH ×2 (11:08→21:27)
[2017-09-28] MEDS: Senna/Docusate Sodium 8.6/50 MG Tablet PO SCH ×2 (11:08→21:30)
[2017-09-28] MEDS: Mupirocin 2% Nasal Oint Topical Syringe EACH NARE SCH ×2 (11:09→21:24)
[2017-09-28] MEDS: Heparin - SQ 10,000 UNITS/ML Vial SQ SCH ×2 (11:09→21:26)
--- NOTE | 2017-09-28 14:29 | P.DIET ---
Nutritional Evaluation Type of nutrition evaluation: follow-up Nutrition consult regarding: Tube Feeding, Diet Evaluation Objective - Diagnosis DM Foot Infection - Objective Part of Body Amputated: Right below knee (6%) [place] body weight: 59 kg (Adjusted for R BKA) Body Weight Used for Calculations: IBW (AdjIBW) Energy Needs - Lower Range (kCal/kg): 28 Energy Needs - Upper Range (kCal/kg): 33 Lower Limit kCal/kg (kCals): 1,652 Upper Limit kCal/kg (kCals): 1,947 Lower Limit Protein Factor (Grams per Kg): 1.2 Upper Limit Protein Factor (Grams per Kg): 1.5 Lower Protein Needs (Protein): 71 Upper Protein Needs (Protein): 89 Dietitian Reviewed in Medical Record: Current diet, Curent medications, Intake & Output, Labs, Medical history, Wound/DTI Diet Order: 1800 [facility] Soft Speech Therapy Recommendations: Yes Objective Comments: PMH: Hep C, HTN, DM, R Heel Ulcer-Osteomyelitis dx 08/24/17 Labs include: Cr 1.07, Glu 127, POC Glu 154, 150, 262, Alk Phos 279 Assessment Assessment: Pt at nutritional risk r/t current clinical status. Pt s/p R BKA on 09/20, extubated 09/25, now on an 1800 [facility] soft diet. Adequate po intake has not yet been established. Will provide Glucerna Shakes tid, each contains 220kcals and 20gms protein Will monitor po intake, clinical course. Recommendations: 1800 [facility] soft diet with Glucerna shakes tid Dietitian to Monitor: Lab values, Glucose level, Weight change, PO Intake, Wound /skin status, Medical course
--- NOTE | 2017-09-28 14:32 | P.PNIM ---
Subjective Interval history: Encephalopathy improved. working well with PT. Goal is discharge to home. Physical Exam Vital signs: Vital Signs 09/27/17 15:00 09/27/17 15:27 09/27/17 16:00 Temperature 98.6 F Pulse Rate 85 78 Respiratory Rate 21 14 15 Blood Pressure 164/74 H 148/84 H Pulse Oximetry 96 99 09/27/17 17:00 09/27/17 18:00 09/27/17 19:00 Temperature 98.2 F Pulse Rate 83 80 83 Respiratory Rate 17 15 16 Blood Pressure 142/67 H 157/77 H 137/72 Pulse Oximetry 100 100 100 09/27/17 20:00 09/27/17 20:29 09/27/17 21:00 Temperature 98.3 F Pulse Rate 84 74 Respiratory Rate 18 14 Blood Pressure 141/67 H 157/71 H Pulse Oximetry 98 95 96 09/27/17 21:52 09/28/17 00:00 09/28/17 04:00 Temperature 97.3 F L 98.2 F 98.0 F Pulse Rate 74 87 84 Respiratory Rate 17 17 18 Blood Pressure 156/76 H 155/79 H 141/67 H Pulse Oximetry 96 98 96 Intake & Output 09/27/17 09/28/17 09/28/17 18:59 06:59 18:59 Weight 68.2 kg Other: Date of Last Bowel Movement 09/26/17 09/26/17 Narrative: GENERAL: NAD, A&Ox2, and restraints HEAD: Normocephalic. NECK: Supple, trachea midline. No lymphadenopathy. EYES: No scleral icterus. No injection or drainage. CARDIOVASCULAR: Regular rate and rhythm without murmurs, gallops, or rubs. RESPIRATORY: Breath sounds equal bilaterally. No accessory muscle use. GASTROINTESTINAL: Abdomen soft, non-tender, nondistended. MUSCULOSKELETAL: No cyanosis, or edema. Right BKA. SKIN: Warm and dry. NEURO: No focal neurological deficits. - Urinary Catheter Management Indwelling Urethral Catheter Cath placed during this visit: yes Reason for continuing: Severe pressure ulcer/wound Insertion date: 09/17/17 Insertion time: 20:00 Results - Labs CBC & Chem 7: 09/28/17 04:52 09/28/17 04:52 Laboratory Results - last 24 hr 09/27/17 09/27/17 09/28/17 17:31 19:38 00:50 WBC RBC Hgb Hct MCV MCH MCHC RDW Plt Count MPV Neut % (Auto) Lymph % (Auto) [place] % (Auto) Eos % (Auto) Baso % (Auto) Neut # (Auto) Lymph # (Auto) [place] # (Auto) Eos # (Auto) Baso # (Auto) WBC Differential Differential Comment Sodium Potassium Chloride Carbon Dioxide Anion Gap BUN Creatinine Estimated GFR POC Glucose 163 H 149 H 188 H Random Glucose Calcium Total Bilirubin AST ALT Alkaline Phosphatase Total Protein Albumin 09/28/17 09/28/17 09/28/17 04:12 04:52 04:52 WBC 9.5 RBC 3.10 L Hgb 9.1 L Hct 27.0 L MCV 87.1 MCH 29.2 MCHC 33.5 RDW 14.4 Plt Count 287 MPV 9.9 Neut % (Auto) 69.9 Lymph % (Auto) 25.2 Cass % (Auto) 3.3 Eos % (Auto) 0.5 Baso % (Auto) 1.1 Neut # (Auto) 6.7 Lymph # (Auto) 2.4 Cass # (Auto) 0.3 Eos # (Auto) 0.0 Baso # (Auto) 0.1 WBC Differential . Differential Comment Auto diff final Sodium 138 Potassium 3.6 Chloride 102 Carbon Dioxide 25.5 Anion Gap 11 BUN 15 Creatinine 1.07 H Estimated GFR 54 L POC Glucose 154 H Random Glucose 127 H Calcium 8.1 L Total Bilirubin 0.3 AST 20 ALT 15 Alkaline Phosphatase 279 H Total Protein 7.8 Albumin 1.6 L 09/28/17 09/28/17 08:31 13:24 WBC RBC Hgb Hct MCV MCH MCHC RDW Plt Count MPV Neut % (Auto) Lymph % (Auto) [place] % (Auto) Eos % (Auto) Baso % (Auto) Neut # (Auto) Lymph # (Auto) [place] # (Auto) Eos # (Auto) Baso # (Auto) WBC Differential Differential Comment Sodium Potassium Chloride Carbon Dioxide Anion Gap BUN Creatinine Estimated GFR POC Glucose 150 H 262 H Random Glucose Calcium Total Bilirubin AST ALT Alkaline Phosphatase Total Protein Albumin Microbiology 09/20/17 10:11 Other Fungal Smear - Final No fungal elements seen 09/20/17 10:11 Other Fungal Culture - Preliminary No growth in 1 week 09/20/17 10:11 Other Acid Fast Bacilli Smear - Final No acid fast bacilli seen 09/20/17 10:11 Other Mycobacterial Culture - Preliminary No growth in 1 week Assessment and Plan - Assessment (1) Sepsis Code(s): A41.9 - Sepsis, unspecified organism Status: Acute (2) Ulcer of right heel and midfoot with necrosis of bone Code(s): L97.414 - Non-pressure 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 Continue PT. Plan for eventual discharge to home. Encephalopathy resolved today, monitor for any recurrence. Right lower extremity ostium mellitus Diabetic foot infection Status post BKA Status post BKA on 09/20/2017 Continue as needed pain treatments Orthophoric ID following C. difficile colitis Continue treatment ID following Funguria/Talia glabrata UTI Treatments completed Metabolic encephalopathy Resolved Likely causes infection Monitor for recurrence Acute respiratory failure Prior tobacco abuse Respiratory status improved She counseled to quit smoking Continue albuterol as needed Continue oxygen as needed Hypertension Continue baseline treatment Follow blood pressures Adjust treatments as needed Septic shock Resolved History of hepatitis C Standard precautions Outpatient management Moderate protein calorie malnutrition Continue ADA diet MARIO Hypernatremia Hypokalemia Replace electrolytes as needed Follow renal function Diabetes mellitus type 2 Follow blood sugars Insulin sliding scale Diabetic diet DVT prophylaxis Heparin
--- NOTE | 2017-09-28 15:59 | P.PNVS ---
Subjective Subjective/Hospital Course: 51-year-old female with diabetes mellitus and a huge necrotic ulcer of the left heel and necrosis of the left midfoot with exposed bone and osteomyelitis At this point there are no other options available then below-knee amputation and will go ahead with the same on Full consult dictated Thanks J 09/19/2017 Patient with peripheral vascular disease and gangrene of the right foot and non- salvageable lower leg for below-knee amputation tomorrow Second opinion rendered by Dr. York. We will do CTA with a runoff to evaluate for any other vascular occlusive disease that might jeopardize either the BKA or the other leg in the future. Based on clinical exam I do not believe the patient has any inflow occlusive disease and popliteal vessels are clearly patent Patient has dorsalis pedis and posterior tibial arteries bilateral and I do not believe she has a significant degree of outflow disease either. Majority of diseases is likely in patient's foot and small vessels. Patient scheduled to undergo tomorrow right below-knee amputation was depending on the appearance of the tissues might be carried out in 2 stages first is a guillotine amputation and second stage closure or in 1 stage if tissues appear to be adequate. 09/20/2017 Patient is status post right below-knee guillotine amputation and wound VAC placement. This is infected area and primary closure with a been ill advised Patient will have wound VAC until next week in about 5-6 days should be ready for a second stage procedure and closure of the below-knee stump 09/21/2017 Patient status post right BKA guillotine amputation wound VAC is in place and serosanguineous drainage remains in the canister Patient remains intubated for apparently last night with attempted extubation patient was agitated unmanageable and bucking the ventilator Plan to take patient back to the operating room for second stage BKA revision and closure probably Sunday09/22/2017 Patient stable in the ICU Will undergo second stage closure of the below-knee amputation next week Serosanguineous drainage from the wound VAC Nothing to add to care further 09/23/2017 Status post right below-knee amputation guillotine type stage I Wound VAC in place and serosanguineous drainage We will take patient to the operating room this week for second stage procedure and closure probably middle of the week 09/24/2017 Patient remains on CPAP. Plan to take to OR tomorrow for 2nd stage closure of the BKA 09/26/2017 Patient underwent successful closure of the BKA yesterday We will leave the dressing on for 48 hours and then remove dressing tomorrow Nothing to add to care at this time 09/28/2017 Original dressing removed and BKA stump is nice and clean dry healing well Wash with soap and water daily and dressed daily Patient can be transferred to rehab facility and discharged from the hospital from my point any time Follow-up with me in about 2 weeks for stitch removal in the office Nothing to add to care at this time Objective Vital Signs / I&O: Vital Signs 09/27/17 16:00 09/27/17 17:00 09/27/17 18:00 Temperature 98.6 F 98.2 F Pulse Rate 78 83 80 Respiratory Rate 15 17 15 Blood Pressure 148/84 H 142/67 H 157/77 H Pulse Oximetry 99 100 100 09/27/17 19:00 09/27/17 20:00 09/27/17 20:29 Temperature 98.3 F Pulse Rate 83 84 Respiratory Rate 16 18 Blood Pressure 137/72 141/67 H Pulse Oximetry 100 98 95 09/27/17 21:00 09/27/17 21:52 09/28/17 00:00 Temperature 97.3 F L 98.2 F Pulse Rate 74 74 87 Respiratory Rate 14 17 17 Blood Pressure 157/71 H 156/76 H 155/79 H Pulse Oximetry 96 96 98 09/28/17 04:00 Temperature 98.0 F Pulse Rate 84 Respiratory Rate 18 Blood Pressure 141/67 H Pulse Oximetry 96 Intake & Output 09/27/17 09/28/17 09/28/17 18:59 06:59 18:59 Weight 68.2 kg Other: Date of Last Bowel Movement 09/26/17 09/26/17 Laboratory Results - last 24 hr 09/27/17 09/27/17 09/28/17 17:31 19:38 00:50 WBC RBC Hgb Hct MCV MCH MCHC RDW Plt Count MPV Neut % (Auto) Lymph % (Auto) [place] % (Auto) Eos % (Auto) Baso % (Auto) Neut # (Auto) Lymph # (Auto) [place] # (Auto) Eos # (Auto) Baso # (Auto) WBC Differential Differential Comment Sodium Potassium Chloride Carbon Dioxide Anion Gap BUN Creatinine Estimated GFR POC Glucose 163 H 149 H 188 H Random Glucose Calcium Total Bilirubin AST ALT Alkaline Phosphatase Total Protein Albumin 09/28/17 09/28/17 09/28/17 04:12 04:52 04:52 WBC 9.5 RBC 3.10 L Hgb 9.1 L Hct 27.0 L MCV 87.1 MCH 29.2 MCHC 33.5 RDW 14.4 Plt Count 287 MPV 9.9 Neut % (Auto) 69.9 Lymph % (Auto) 25.2 [place] % (Auto) 3.3 Eos % (Auto) 0.5 Baso % (Auto) 1.1 Neut # (Auto) 6.7 Lymph # (Auto) 2.4 [place] # (Auto) 0.3 Eos # (Auto) 0.0 Baso # (Auto) 0.1 WBC Differential . Differential Comment Auto diff final Sodium 138 Potassium 3.6 Chloride 102 Carbon Dioxide 25.5 Anion Gap 11 BUN 15 Creatinine 1.07 H Estimated GFR 54 L POC Glucose 154 H Random Glucose 127 H Calcium 8.1 L Total Bilirubin 0.3 AST 20 ALT 15 Alkaline Phosphatase 279 H Total Protein 7.8 Albumin 1.6 L 09/28/17 09/28/17 08:31 13:24 WBC RBC Hgb Hct MCV MCH MCHC RDW Plt Count MPV Neut % (Auto) Lymph % (Auto) [place] % (Auto) Eos % (Auto) Baso % (Auto) Neut # (Auto) Lymph # (Auto) [place] # (Auto) Eos # (Auto) Baso # (Auto) WBC Differential Differential Comment Sodium Potassium Chloride Carbon Dioxide Anion Gap BUN Creatinine Estimated GFR POC Glucose 150 H 262 H Random Glucose Calcium Total Bilirubin AST ALT Alkaline Phosphatase Total Protein Albumin Microbiology 09/20/17 10:11 Fungal Smear - Final Other No fungal elements seen Fungal Culture - Preliminary No growth in 1 week 09/20/17 10:11 Acid Fast Bacilli Smear - Final Other No acid fast bacilli seen Mycobacterial Culture - Preliminary No growth in 1 week
[2017-09-29] MEDS: Insulin NovoLOG Aspart Correctional Sugar Inj SQ SCH ×6 (01:24→21:46)
[2017-09-29] MEDS: Mupirocin 2% Nasal Oint Topical Syringe EACH NARE SCH ×2 (11:55→21:41)
[2017-09-29] MEDS: Heparin - SQ 10,000 UNITS/ML Vial SQ SCH ×2 (11:55→21:40)
[2017-09-29] MEDS: Metoprolol Tartrate 50 MG Tablet PO SCH ×2 (11:56→21:39)
[2017-09-29] MEDS: Senna/Docusate Sodium 8.6/50 MG Tablet PO SCH ×2 (11:56→21:39)
--- NOTE | 2017-09-29 16:23 | P.PNIM ---
Subjective Interval history: Nursing denies any deterioration since last night. Reports having only one pasty stool this morning. Nursing reports he only had one BM yesterday. Patient has no complaints from her standpoint. Says she says her appetite is not back to normal. Physical Exam Vital signs: Vital Signs 09/28/17 20:00 09/29/17 00:00 09/29/17 04:00 Temperature 98 F 97.9 F 98 F Pulse Rate 80 91 H 86 Respiratory Rate 18 20 18 Blood Pressure 144/70 H 142/87 H 101/47 L Pulse Oximetry 100 95 100 09/29/17 08:00 09/29/17 12:00 Temperature 98 F 97.8 F Pulse Rate 79 73 Respiratory Rate 20 20 Blood Pressure 139/62 159/76 H Pulse Oximetry 95 97 Intake & Output 09/28/17 09/29/17 09/29/17 18:59 06:59 18:59 Weight 68.2 kg Other: Date of Last Bowel Movement 09/28/17 Narrative: abd soft, NT, ND unlabored breathing - Urinary Catheter Management Indwelling Urethral Catheter Cath placed during this visit: yes Reason for continuing: Severe pressure ulcer/wound Insertion date: 09/17/17 Insertion time: 20:00 Results - Labs CBC & Chem 7: 09/28/17 04:52 09/28/17 04:52 Laboratory Results - last 24 hr 09/28/17 09/29/17 09/29/17 20:08 01:19 03:42 POC Glucose 321 H 190 H 111 H 09/29/17 09/29/17 08:20 11:42 POC Glucose 132 H 205 H Assessment and Plan - Assessment (1) Sepsis Code(s): A41.9 - Sepsis, unspecified organism Status: Acute (2) Ulcer of right heel and midfoot with necrosis of bone Code(s): L97.414 - Non-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 Continue PT. Right lower extremity ostium mellitus Diabetic foot infection Status post BKA Status post BKA on 09/20/2017 Continue as needed pain treatments Orth following ID following C. difficile colitis Continue treatment clinically improving, continue vancomycin Acute respiratory failure Continue albuterol as needed Continue oxygen as needed Hypertension Continue baseline treatment History of hepatitis C Standard precautions Outpatient management Moderate protein calorie malnutrition Continue ADA diet MARIO Hypernatremia Hypokalemia resolved Diabetes mellitus type 2 Insulin sliding scale Diabetic diet DVT prophylaxis Heparin Discharge Planning: pending rehab placement; may be [facility] case if qualifies
[2017-09-30] MEDS: Insulin NovoLOG Aspart Correctional Sugar Inj SQ SCH ×6 (05:35→21:17)
[2017-09-30] MEDS: Heparin - SQ 10,000 UNITS/ML Vial SQ SCH ×2 (09:03→21:14)
[2017-09-30] MEDS: Metoprolol Tartrate 50 MG Tablet PO SCH ×2 (09:03→21:13)
[2017-09-30] MEDS: Senna/Docusate Sodium 8.6/50 MG Tablet PO SCH ×2 (09:04→21:14)
[2017-09-30] MEDS: Mupirocin 2% Nasal Oint Topical Syringe EACH NARE SCH ×2 (09:04→21:14)
--- NOTE | 2017-09-30 16:22 | P.PNIM ---
Subjective Interval history: Nursing denies any deterioration since last night except for a scab wound on the low back. Patient herself denies having any further obvious diarrhea. Really wants to go home. Says she has plenty of family members that can take care of her at home but they just do not want to visit her in the hospital. Physical Exam Vital signs: Vital Signs 09/29/17 20:00 09/30/17 00:00 09/30/17 04:00 Temperature 98.2 F 99.2 F 97.3 F L Pulse Rate 83 70 69 Respiratory Rate 17 18 16 Blood Pressure 149/71 H 129/70 148/70 H Pulse Oximetry 93 L 95 94 L 09/30/17 08:00 Temperature 98 F Pulse Rate 75 Respiratory Rate 18 Blood Pressure 151/75 H Pulse Oximetry 96 Intake & Output 09/29/17 09/30/17 09/30/17 18:59 06:59 18:59 Intake Total 98 / 98 720 / 720 Balance 98 / 98 720 / 720 Intake: Oral 98 / 98 720 / 720 Other: # Voids 3 2 # Bowel Movements 2 Narrative: Abdomen is soft, nontender, nondistended Unlabored breathing Right BKA stump in postop dressing - Urinary Catheter Management Indwelling Urethral Catheter Cath placed during this visit: yes Reason for continuing: Severe pressure ulcer/wound Insertion date: 09/17/17 Insertion time: 20:00 Results - Labs CBC & Chem 7: 09/28/17 04:52 09/28/17 04:52 Laboratory Results - last 24 hr 09/29/17 09/29/17 09/30/17 18:08 21:45 00:03 POC Glucose 247 H 197 H 186 H 09/30/17 09/30/17 09/30/17 04:19 08:13 11:56 POC Glucose 195 H 244 H 277 H Assessment and Plan - Assessment (1) Sepsis Code(s): A41.9 - Sepsis, unspecified organism Status: Acute (2) Ulcer of right heel and midfoot with necrosis of bone Code(s): L97.414 - Non-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 Continue PT. Right lower extremity osteomyelitis Diabetic foot infection Status post BKA Status post BKA on 09/20/2017 Continue as needed pain treatments Orth following ID following C. difficile colitis Continue treatment clinically improving, continue vancomycin Acute respiratory failure Continue albuterol as needed Continue oxygen as needed Hypertension Continue baseline treatment History of hepatitis C Standard precautions Outpatient management Moderate protein calorie malnutrition Continue ADA diet Diabetes mellitus type 2 Insulin sliding scale Diabetic diet DVT prophylaxis Heparin Discharge Planning: pending rehab placement; may be [facility] if qualifies
[2017-10-01 01:06] VITALS: RESP 20
[2017-10-01] MEDS: Insulin NovoLOG Aspart Correctional Sugar Inj SQ SCH ×4 (04:09→13:42)
[2017-10-01] MEDS: Senna/Docusate Sodium 8.6/50 MG Tablet PO SCH (08:49)
[2017-10-01] MEDS: Metoprolol Tartrate 50 MG Tablet PO SCH (08:51)
[2017-10-01] MEDS: Mupirocin 2% Nasal Oint Topical Syringe EACH NARE SCH (08:51)
[2017-10-01] MEDS: Heparin - SQ 10,000 UNITS/ML Vial SQ SCH (08:51)
--- NOTE | 2017-10-01 12:17 | P.PNWCN ---
Wound Care Nurse Consult Description: Wound consult ordered by for wound management Communicated with: Ella RODGERS, Recommendation: 1. Reposition patient every 2 hours for comfort and offloading 2. Cleanse sacral/coccyx wound with normal saline only. (wound cleanser deactivates Santyl). 3. Apply Santyl 2mm thick to yellow slough/black eschar cover with saline moistened gauze secure with dry dressing. 4. Sign and date all dressings change dressing daily or as needed for dislodgement. 5. Follow up with out patient wound center. Additional information: patient was seen today by hand sign writer for wound management of sacral/coccyx region.Patient alert and oriented x4 resting in bed.Patient was able to reposition self to right side with no assistance.patient incontinent of bowels at this time madelyn care provide gown changed.Fraud Examiner was able to visualize sacral/ coccyx region.Patient noted to have a unstageable pressure injury located over sacrum extending to coccyx.Wound measures 6.0cm x4.8cm x eschar.Wound edges are well defined irregular in shape.Wound base is 50% black adhered soft eschar 40% moist yellow adhered slough 10% pink non granular tissue.Scant serosanguineous exudate noted without odor.Wound cleansed with normal saline pat dry Calazime applied to periwound till Santyl available patient repositioned to left side for offloading.Periwound intact blanchable minimal erythema noted.Airrepy or similar surface ordered.Patient is non ambulatory and will need wheelchair for safe discharge.Dressing to right BKA dry intact. Wound/Pressure Injury - Patient Status Premedicated for Pain Prior to Dressing Change: No - Wound Right BKA Wound Assessment: Ongoing Wound Type: Traumatic Amputation Is This a Chronic Wound: Yes Requested from Provider a Wound Care Consult: No Wound Bed Appearance: Necrotic Surrounding Tissue Appearance: Dark Red Drainage Description: Serosanguinous Drainage Amount: Scant Drainage Odor: No Odor Dressing Status: Dry & Intact Primary Dressing: Non-Adherent Gauze Pad Cover Dressing: Gauze Roll/Wrap Tape Type: Paper Wound Dressing Change Date: 10/01/17 Right Leg Wound Assessment: Ongoing Wound Type: Traumatic Amputation Is This a Chronic Wound: No Drainage Description: Serosanguinous Drainage Amount: Scant Drainage Odor: No Odor Dressing Status: Dry & Intact Primary Dressing: Gauze Roll/Wrap Cover Dressing: Wound Vac Sacrum Wound Staging: Unstageable Wound Assessment: Ongoing Wound Type: Pressure Injury Is This a Chronic Wound: Yes Requested from Provider a Wound Care Consult: No (Ti RODGERS,[facility] seen 10/01) Length: 6.0 Width: 4.8 Wound Bed Appearance: Necrotic, [place], Yellow Surrounding Tissue Appearance: Erythema Surrounding Tissue Temperature: Warm Drainage Description: Serosanguinous Drainage Amount: Scant Drainage Odor: No Odor Dressing Status: Open to Air Cleansing Solution: Saline Topical: Enzymatic Debridement Ointment Primary Dressing: Gauze Pad Cover Dressing: Gauze Pads Wound Dressing Change Date: 10/01/17 Wound Vac - Wound Vac Right BKA Pressure Setting (mmHg): 125 Mode Setting: Continuous Drainage Description: Sanguinous Foam type: Black Right Leg Wound Vac DC'd by: Tim Ugarte Incision - Incision Right Leg Drainage Amount: None Incision Dressing Status: Dry & Intact Topical: XEROFORM Incision Packing Type: Gauze Pads Primary Dressin' GENA Cover Dressing: Gauze Roll/Wrap
--- NOTE | 2017-10-01 13:17 | P.PNID ---
Subjective Remarks: Patient is awake and alert. She feels okay. Patient had revised R. 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 States that her bowel movements are formed. Afebrile. This is a 52-year-old white female who was admitted to the hospital after she presented with pain in her right foot. The patient was in the hospital between 08/21 and 08/29 and was being treated for diabetic foot ulcer with MRSA infection of the right foot. She states that the problem began approximately 2 weeks prior, and she was seen by the account manager education and had debridement and worsened. She left the hospital against medical advice on 08/29/2017. She states that she had to get back to work because she needed the money to pay her rent. However, she was unable to work and eventually presented to the emergency department because of worsening of the wound with swelling and redness of the foot. Her white blood cell count was 20.5 in the emergency department with 17% bands, and she had an abnormal urinalysis. Her heart rate was 121 and temperature was 99.1 on admission. Her blood sugar was greater than 600. The patient is currently receiving Levophed. She is awake and alert. X-ray of the foot shows fracture deformity of the calcaneus with a large overlying soft tissue defect extending into the fracture. Lines: peripheral line without evidence of infection. Past Medical History: PAST MEDICAL HISTORY: Diabetes mellitus, hypertension, hepatitis C, and diabetic neuropathy. Allergies/Adverse Reactions: Allergies No Known Allergies Allergy (Unverified 08/02/17 06:11) Objective Vital Signs 09/30/17 16:00 09/30/17 18:00 09/30/17 20:00 Temperature 97.9 F 98.5 F Pulse Rate 93 H 80 88 Respiratory Rate 18 18 Blood Pressure 169/66 H 134/70 Pulse Oximetry 98 98 10/01/17 00:00 10/01/17 04:00 10/01/17 04:05 Temperature 97.8 F 98.3 F Pulse Rate 71 73 74 Respiratory Rate 20 20 Blood Pressure 141/72 H 141/65 H Pulse Oximetry 96 97 10/01/17 08:00 Temperature 98 F Pulse Rate 74 Respiratory Rate 20 Blood Pressure 163/79 H Pulse Oximetry 95 Intake & Output 09/30/17 10/01/17 10/01/17 18:59 06:59 18:59 Intake Total 560 / 560 240 / 240 Balance 560 / 560 240 / 240 Weight 68.5 kg Intake: Oral 560 / 560 240 / 240 Other: Mode Setting Right BKA Continuous # Voids 2 # Urine Diapers 2 Date of Last Bowel Movement 09/30/17 # Bowel Movements 1 2 Lab - Chemistry Results 09/29/17 09/29/17 09/30/17 18:08 21:45 00:03 POC Glucose 247 H 197 H 186 H 09/30/17 09/30/17 09/30/17 04:19 08:13 11:56 POC Glucose 195 H 244 H 277 H 09/30/17 09/30/17 09/30/17 17:43 20:10 23:51 POC Glucose 247 H 216 H 188 H 10/01/17 10/01/17 10/01/17 03:57 08:46 12:35 POC Glucose 191 H 247 H 258 H Imaging: ITS Impressions Foot X-Ray 09/17/17 02:18 CONCLUSION: 1. Fracture deformity of the calcaneus with large overlying soft tissue defect which extends into the fracture. Foot MRI 09/19/17 00:00 CONCLUSION: Nearly all of the calcaneus is involved by osteomyelitis. A large fracture cleft has developed as above. There is gas in the soft tissues, fracture cleft, subtalar joint and focally in the talus adjacent to the sinus Tarsi. No definite talar osteomyelitis. Aorta w/Runoff CTA 09/19/17 09:45 CONCLUSION: 1. The examination demonstrates normal inflow and runoff to both lower extremities. 2. There is gas diffusely throughout the soft tissues of the right foot and ankle concerning for infection. Chest X-Ray 09/26/17 06:00 CONCLUSION: Bilateral infiltrates. Physical Exam: PHYSICAL EXAMINATION: GENERAL: Patient is awake and alert. No acute distress. HEENT: The head is atraumatic. No icterus. Oropharynx: Moist mucosa. No visible lesions. NECK: Supple without adenopathy or swelling. LUNGS: Decreased breath sounds. HEART: Regular S1 and S2. No murmurs heard. ABDOMEN: Bowel sounds present. Soft and nontender. EXTREMITIES: The right leg is amputated below the knee. Stump incision is intact. No erythema. No CCE. SKIN: No rash. NEUROLOGIC: Non focal. PSYCHIATRIC: Uncooperative. Assessment and Plan - Plan ASSESSMENT: 1. 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 Group B strep. Patient is now post amputation AKA 09/20/2017, Revised 09/25/2017. Wound is intact. 2. Diabetic foot infection. 3. Sepsis due to group B beta strep. Indicated by tachycardia and elevated respiratory rate along with increased white blood cell count and abnormal urinalysis and foot wound culture. 4. Acute kidney disease. 5. Talia glabrata UTI. Repeat urine negative. 6. C. dif colitis. RECOMMENDATIONS: Completed p.o. vancomycin for C. difficile on 10/04. I will sign off now. Please call if further input needed.
[2017-10-01 13:51] VITALS: TEMP 97.9
[2017-10-01] MEDS ORDERED: Collagenase Oint 30 GM Tube TOPICAL SCH (14:00)
--- NOTE | 2017-10-01 14:31 | P.PNVS ---
Subjective Subjective/Hospital Course: 51-year-old female with diabetes mellitus and a huge necrotic ulcer of the left heel and necrosis of the left midfoot with exposed bone and osteomyelitis At this point there are no other options available then below-knee amputation and will go ahead with the same on Full consult dictated Thanks J 09/19/2017 Patient with peripheral vascular disease and gangrene of the right foot and non- salvageable lower leg for below-knee amputation tomorrow Second opinion rendered by Dr. York. We will do CTA with a runoff to evaluate for any other vascular occlusive disease that might jeopardize either the BKA or the other leg in the future. Based on clinical exam I do not believe the patient has any inflow occlusive disease and popliteal vessels are clearly patent Patient has dorsalis pedis and posterior tibial arteries bilateral and I do not believe she has a significant degree of outflow disease either. Majority of diseases is likely in patient's foot and small vessels. Patient scheduled to undergo tomorrow right below-knee amputation was depending on the appearance of the tissues might be carried out in 2 stages first is a guillotine amputation and second stage closure or in 1 stage if tissues appear to be adequate. 09/20/2017 Patient is status post right below-knee guillotine amputation and wound VAC placement. This is infected area and primary closure with a been ill advised Patient will have wound VAC until next week in about 5-6 days should be ready for a second stage procedure and closure of the below-knee stump 09/21/2017 Patient status post right BKA guillotine amputation wound VAC is in place and serosanguineous drainage remains in the canister Patient remains intubated for apparently last night with attempted extubation patient was agitated unmanageable and bucking the ventilator Plan to take patient back to the operating room for second stage BKA revision and closure probably Sunday09/22/2017 Patient stable in the ICU Will undergo second stage closure of the below-knee amputation next week Serosanguineous drainage from the wound VAC Nothing to add to care further 09/23/2017 Status post right below-knee amputation guillotine type stage I Wound VAC in place and serosanguineous drainage We will take patient to the operating room this week for second stage procedure and closure probably middle of the week 09/24/2017 Patient remains on CPAP. Plan to take to OR tomorrow for 2nd stage closure of the BKA 09/26/2017 Patient underwent successful closure of the BKA yesterday We will leave the dressing on for 48 hours and then remove dressing tomorrow Nothing to add to care at this time 09/28/2017 Original dressing removed and BKA stump is nice and clean dry healing well Wash with soap and water daily and dressed daily Patient can be transferred to rehab facility and discharged from the hospital from my point any time Follow-up with me in about 2 weeks for stitch removal in the office Nothing to add to care at this time 10/01/2017 Stump clean and dry Patient doing fine from vascular point Nothing to add to care Objective Vital Signs / I&O: Vital Signs 09/30/17 16:00 09/30/17 18:00 09/30/17 20:00 Temperature 97.9 F 98.5 F Pulse Rate 93 H 80 88 Respiratory Rate 18 18 Blood Pressure 169/66 H 134/70 Pulse Oximetry 98 98 10/01/17 00:00 10/01/17 04:00 10/01/17 04:05 Temperature 97.8 F 98.3 F Pulse Rate 71 73 74 Respiratory Rate 20 20 Blood Pressure 141/72 H 141/65 H Pulse Oximetry 96 97 10/01/17 08:00 10/01/17 12:00 Temperature 98 F 97.9 F Pulse Rate 74 69 Respiratory Rate 20 20 Blood Pressure 163/79 H 145/72 H Pulse Oximetry 95 95 Intake & Output 09/30/17 10/01/17 10/01/17 18:59 06:59 18:59 Intake Total 560 / 560 240 / 240 Balance 560 / 560 240 / 240 Weight 68.5 kg Intake: Oral 560 / 560 240 / 240 Other: Mode Setting Right BKA Continuous # Voids 2 # Urine Diapers 2 Date of Last Bowel Movement 09/30/17 # Bowel Movements 1 2 Laboratory Results - last 24 hr 09/30/17 09/30/17 09/30/17 17:43 20:10 23:51 POC Glucose 247 H 216 H 188 H 10/01/17 10/01/17 10/01/17 03:57 08:46 12:35 POC Glucose 191 H 247 H 258 H
[2017-10-01 16:32] VITALS: BP 154/81; PULSE 79; O2SAT 100
--- NOTE | 2017-10-01 17:17 | P.PNIM ---
Physical Exam Vital signs: Vital Signs 09/30/17 18:00 09/30/17 20:00 10/01/17 00:00 Temperature 98.5 F 97.8 F Pulse Rate 80 88 71 Respiratory Rate 18 20 Blood Pressure 134/70 141/72 H Pulse Oximetry 98 96 10/01/17 04:00 10/01/17 04:05 10/01/17 08:00 Temperature 98.3 F 98 F Pulse Rate 73 74 74 Respiratory Rate 20 20 Blood Pressure 141/65 H 163/79 H Pulse Oximetry 97 95 10/01/17 12:00 10/01/17 12:18 10/01/17 16:00 Temperature 97.9 F 97.9 F Pulse Rate 69 76 79 Respiratory Rate 20 20 Blood Pressure 145/72 H 154/81 H Pulse Oximetry 95 100 Intake & Output 09/30/17 10/01/17 10/01/17 18:59 06:59 18:59 Intake Total 560 / 560 240 / 240 Balance 560 / 560 240 / 240 Weight 68.5 kg Intake: Oral 560 / 560 240 / 240 Other: Mode Setting Right BKA Continuous # Voids 2 # Urine Diapers 2 Date of Last Bowel Movement 09/30/17 # Bowel Movements 1 2 - Urinary Catheter Management Indwelling Urethral Catheter Cath placed during this visit: yes Reason for continuing: Severe pressure ulcer/wound Insertion date: 09/17/17 Insertion time: 20:00 Results - Labs CBC & Chem 7: 09/28/17 04:52 09/28/17 04:52 Laboratory Results - last 24 hr 09/30/17 09/30/17 09/30/17 17:43 20:10 23:51 POC Glucose 247 H 216 H 188 H 10/01/17 10/01/17 10/01/17 03:57 08:46 12:35 POC Glucose 191 H 247 H 258 H Assessment and Plan - Assessment (1) Sepsis Code(s): A41.9 - Sepsis, unspecified organism Status: Acute (2) Ulcer of right heel and midfoot with necrosis of bone Code(s): L97.414 - Non-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 Continue PT. Right lower extremity osteomyelitis Diabetic foot infection Status post BKA Status post BKA on 09/20/2017 Continue as needed pain treatments Orth following ID following C. difficile colitis Continue treatment clinically improving, continue vancomycin Acute respiratory failure Continue albuterol as needed Continue oxygen as needed Hypertension Continue baseline treatment History of hepatitis C Standard precautions Outpatient management Moderate protein calorie malnutrition Continue ADA diet Diabetes mellitus type 2 Insulin sliding scale Diabetic diet DVT prophylaxis Heparin Discharge Planning: pending rehab placement; may be Dahl gabrielle case if qualifies
--- NOTE | 2017-10-02 08:42 | P.DS ---
Date of admission: 09/17/17 04:11 Primary care physician: No Primary Care Physician Brief History from admission: This is a 52-year-old female with a PMH of Hepatitis C, DM, HTN and Right Heel Ulcer who presented to the ER with complaints of worsening right heel pain x1 day. Recent admit 08/21/17 for similar complaints, found to have right foot osteomyelitis on MRI Foot 08/24/17, s/p I&D by Dr. Valentine on 08/27/17, Wound Cultures +MRSA, was on IV Vanc however pt ultimately LEFT AMA on 08/29/17. States she was given prescription for Vanc but hasn't been able to fill it due to financial reasons, off antibiotics since then. Today w/ increasing pain and swelling to right foot and heel. On arrival, BP 110/55, HR 121, O2 sat 97% on RA, Temp 99.1. W BC 20.5, bands 17%. Na 126. Creatinine 1.77, previously 0.85 on 08/29/2017. BS 845. S/p Vanc in ER. Foot X-ray w/ fracture deformity of calcaneus with large overlying soft tissue defect which extends into the fracture. DS: Diagnosis - Discharge Diagnosis (1) Sepsis Status: Acute (2) Ulcer of right heel and midfoot with necrosis of bone Status: Acute (3) DM (diabetes mellitus) Status: Deleted DS: Summary Hospital Course: Patient was admitted, started on antibiotics for her right leg osteomyelitis, bacteremia, as well as vancomycin for C. difficile diarrhea. Infectious disease helped comanage her antimicrobial care. Patient eventually experienced respiratory failure after BKA and she was intubated and placed on ventilatory support, underwent bronchoscopy which showed no significant findings apart from atelectasis. After multiple disciplinary input, it was concluded that a BKA of the right leg was the best option for the patient. Right BKA guillotine amputation was performed. Patient's diarrhea had clinically resolved. The patient was doing well until she began to feel that she just wanted to leave the hospital despite extensive counseling that she was in no shape to go home and be safe given her significant abilities after a BKA. Patient was counseled that she could come rebounding back to the hospital should she leave prematurely. However the patient still opted to leave AMA. The patient refused to give explicit verbal consent so that we can talk to her family members about her care, thus I myself was unable to communicate any of her healthcare information to her family. - Time Spent with Patient Total time spent providing and/or coordinating discharge services: Less than 30 minutes - Quality: VTE Deep Vein Thrombosis/Pulmonary Embolism Present on Admission: No Exam Vital signs: Vital Signs 10/01/17 12:00 10/01/17 12:18 10/01/17 16:00 Temperature 97.9 F 97.9 F Pulse Rate 69 76 79 Respiratory Rate 20 20 Blood Pressure 145/72 H 154/81 H Pulse Oximetry 95 100 Intake & Output 10/01/17 10/02/17 10/02/17 18:59 06:59 18:59 Other: Mode Setting Right BKA Continuous Narrative: Unlabored breathing Sad mood with corresponding affect Awake alert Results Procedures completed during hospitalization: Right below-knee guillotine amputation Labs on day of discharge: Labs from last 24 hours 10/01/17 10/01/17 12:35 08:46 POC Glucose 258 H 247 H Preliminary micro results at discharge 09/20/17 10:11 Fungal Culture - Preliminary Other No growth in 1 week 09/20/17 10:11 Mycobacterial Culture - Preliminary Other No growth in 1 week - Impressions ITS Impressions Foot X-Ray 09/17/17 02:18 CONCLUSION: 1. Fracture deformity of the calcaneus with large overlying soft tissue defect which extends into the fracture. Foot MRI 09/19/17 00:00 CONCLUSION: Nearly all of the calcaneus is involved by osteomyelitis. A large fracture cleft has developed as above. There is gas in the soft tissues, fracture cleft, subtalar joint and focally in the talus adjacent to the sinus Tarsi. No definite talar osteomyelitis. Aorta w/Runoff CTA 09/19/17 09:45 CONCLUSION: 1. The examination demonstrates normal inflow and runoff to both lower extremities. 2. There is gas diffusely throughout the soft tissues of the right foot and ankle concerning for infection. Chest X-Ray 09/26/17 06:00 CONCLUSION: Bilateral infiltrates. Discharge Plan - Discharge Disposition Patient Disposition: Left Against Medical Advice - Physicians Team Primary Care Provider: Primary Care Physici,No Attending Provider: Rashard Richmond Other Providers: Kimberly York DPM ; Tim Ugarte MD ; Chapincito Song MD ; Jazmine Parra MD
--- NOTE | 2017-10-02 16:59 | P.AMA ---
AMA Note - AMA Note AMA Statement: Patient Abby Middleton has decided to leave the hospital against medical advice. This patient has the capacity to refuse care and understands the risks of leaving, including permanent disability and/or , and has had an opportunity to ask questions about his/her condition. The patient has been informed that he/she may return for care at any time, and follow up has been arranged/advised. - AMA Note Discharge Disposition: Left Against Medical Advice
== END 2017-10-01 16:59 | disposition left against medical advice (07) ==
LOC: NEPC 02:06 → NEDA 04:11 → HIMC 11:36 → N04 09-27 21:36
PROVIDERS: ADMIT Hospitalist; ATTEND Hospitalist

== ENCOUNTER 2017-11-28 04:35 | Inpatient (IN) ==
[2017-11-28] MEDS ORDERED: Morphine Inj 4 MG/ML Vial IV.PUSH ONE (04:54)
[2017-11-28] MEDS ORDERED: Sod Chloride 0.9% Inj 1,000 ML IV.SIG SCH ×2 (05:15→09:45)
[2017-11-28 05:22] LABS: Baso % (Auto) 0.4 % (0.0-2.0); Eos % (Auto) 0.1 % (0.0-4.0); Hematocrit 37.5 % (35.0-46.0); Hemoglobin 12.9 gm/dL (11.6-15.3); Lymph # (Auto) 1.7 th/mm3 (1.0-4.8); Lymph % (Auto) 16.9 % (9.0-44.0); Mean Corpuscular HGB Conc 34.3 % (32.0-36.0); Mean Corpuscular Hemoglobin 28.7 pg (27.0-34.0); Mean Corpuscular Volume 83.5 fL (80.0-100.0); Mono # (Auto) 0.4 th/mm3 (0.0-0.9); Neut # (Auto) 7.9 th/mm3 (1.8-7.7); Neut % (Auto) 78.6 % (16.0-70.0); Platelet Count 321 th/mm3 (150-450); Red Blood Count 4.49 mil/mm3 (4.00-5.30); Red Cell Distribution Width 14.2 % (11.6-17.2); White Blood Count 10.1 th/mm3 (4.0-11.0)
--- NOTE | 2017-11-28 05:27 | ED ---
HPI General Chief complaint: Weakness Stated complaint: Medical Time Seen by Provider: 11/28/17 04:39 History of Present Illness HPI narrative: Patient is a 52-year-old female presents emergency department for 4-day history of generalized weakness. Patient states she has been out of her insulin for the past 4 days as well. Also complains of buttock pain more precisely sacrum pain from a decubitus ulcer. Patient fairly somnolent on arrival, denies any chest pain shortness of breath abdominal pain nausea or vomiting. 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 She was also diagnosed with osteomyelitis in this wound she had signed out AGAINST MEDICAL ADVICE at the end of this hospitalization to go take care of a family member. She had been admitted several times over the summer with similar issues of the right heel and signed out AGAINST MEDICAL ADVICE several times as well. States symptoms are severe, and her sacrum, associated with hyperglycemia, context and associated signs symptoms as above. Related Data Home Medications Medication Instructions Recorded Confirmed insulin asp prt-insulin aspart 1 sliding scale dose SUBCUT UD 11/28/17 11/28/17 [Novolog Mix 70-30 U-100 Insuln] insulin detemir U-100 [Levemir 15 unit SUBCUT QPM 11/28/17 11/28/17 U-100 Insulin] Previous Rx's Medication Instructions Recorded pbetj-jolf-YvOBO-[id number]-uur 1 bar PO BID #30 each 12/04/17 [Alek (with collagen)] collagenase clostridium histo. 1 applicatio TOPICAL DAILY 14 Days 12/04/17 [Santyl] g duloxetine 30 mg PO DAILY #30 cap 12/04/17 hydrocodone-acetaminophen 1 tab PO Q6H PRN #12 tab 12/04/17 nut.tx.gluc.intol,lac-free,soy 1 can PO BID #60 ml 12/04/17 [Glucerna 1.2 Mark] promethazine 25 mg PO Q4H PRN #60 tab 12/04/17 Allergies Allergy/AdvReac Type Severity Reaction Status Date / Time No Known Allergies Allergy Unverified 08/02/17 06:11 Review of Systems ROS: all other systems reviewed are negative [facility] Social History Social History Substance History: No History of Abuse Second Hand Smoke Exposure: No Smoking Status: Current some day smoker Tobacco Type: Cigarettes Packs Per Day: 2 Cigarettes Per Day: 40.0 Smoking End Date: 6 months ago How Often Do You Have a Drink Containing Alcohol: Never Recent Travel in [facility] within the Last 8 Weeks: No Recent Out of Country Travel within the Last 8 Weeks: No Immunization History Tetanus Immunization: Unsure Exam Narrative Exam Narrative: GENERAL: Well-developed thin under nourished female, appears uncomfortable. SKIN: Focused skin assessment warm/dry. Stage IV pressure ulcer about the size of a quarter on the sacrum. HEAD: Atraumatic. Normocephalic. EYES: Pupils equal and round. No scleral icterus. No injection or drainage. ENT: No nasal bleeding or discharge. Mucous membranes pink and moist. NECK: Trachea midline. No JVD. CARDIOVASCULAR: Regular rate and rhythm. No murmur appreciated. RESPIRATORY: No accessory muscle use. Clear to auscultation. Breath sounds equal bilaterally. GASTROINTESTINAL: Abdomen soft, non-tender, nondistended. Hepatic and splenic margins not palpable. MUSCULOSKELETAL: No obvious deformities. No clubbing. No cyanosis. No edema. NEUROLOGICAL: Awake and alert. No obvious cranial nerve deficits. Motor grossly within normal limits. Normal speech. PSYCHIATRIC: Appropriate mood and affect; insight and judgment normal. Course Initial Documented Vital Signs Temperature 98 F 11/28/17 04:38 Pulse Rate 104 H 11/28/17 04:38 Respiratory Rate 20 11/28/17 04:38 Blood Pressure 128/75 11/28/17 04:38 Pulse Oximetry 97 11/28/17 04:38 Last Documented Vital Signs Temperature 97.9 F 12/04/17 08:00 Pulse Rate 98 H 12/04/17 12:00 Respiratory Rate 18 12/04/17 08:00 Blood Pressure 139/63 12/04/17 08:00 Pulse Oximetry 97 12/04/17 08:00 Medical Decision Making [facility] Narrative Medical decision making narrative: Patient room to the emergency department, 1 L normal saline bolus, despite her not complaining of any nausea or vomiting she started to vomit here in the body, Zofran was given, morphine 4 mg for her sacral ulcer pain. Blood sugar found to be in excess of 1000, sodium of 112, corrected sodium for glucose corrects to 135. Patient given 5 units regular insulin by IV followed by insulin drip 6 units/h to titrate down per protocol. Patient will be admitted to the ICU/CIC for further blood sugar controlling. I have my suspicion the patient is also failure to thrive and will be very difficult to be discharged home. May need case management consult early in admission. Medical Screen Exam Complete: Yes Emergency Medical Condition: Yes Lab Data Result diagrams: 12/03/17 06:40 12/03/17 06:19 Lab Results 11/28/17 11/28/17 11/28/17 Range/Units 04:46 05:00 05:00 WBC 10.1 (4.0-11.0) th/mm3 RBC 4.49 (4.00-5.30) mil/mm3 Hgb 12.9 (11.6-15.3) gm/dL Hct 37.5 (35.0-46.0) % MCV 83.5 (80.0-100.0) fL MCH 28.7 (27.0-34.0) pg MCHC 34.3 (32.0-36.0) % RDW 14.2 (11.6-17.2) % Plt Count 321 (150-450) th/mm3 MPV 10.0 (7.0-11.0) fL Neut % (Auto) 78.6 H (16.0-70.0) % Lymph % (Auto) 16.9 (9.0-44.0) % [place] % (Auto) 4.0 (0.0-8.0) % Eos % (Auto) 0.1 (0.0-4.0) % Baso % (Auto) 0.4 (0.0-2.0) % Neut # (Auto) 7.9 H (1.8-7.7) th/mm3 Lymph # (Auto) 1.7 (1.0-4.8) th/mm3 [place] # (Auto) 0.4 (0.0-0.9) th/mm3 Eos # (Auto) 0.0 (0.0-0.4) th/mm3 Baso # (Auto) 0.0 (0.0-0.2) th/mm3 WBC Differential . Differential Comment Auto diff final ESR (0-30) mm/hr Sodium 112 L* (136-145) meq/L Potassium 5.9 H (3.5-5.1) meq/L Chloride 72 L (98-107) meq/L Carbon Dioxide 22.6 (21.0-32.0) meq/L Anion Gap 17 H (5-15) meq/L BUN 45 H (7-18) mg/dL Creatinine 2.07 H (0.50-1.00) mg/dL Estimated GFR 25 L (>89) mL/min POC Glucose Greater than 600 H* (68-110) mg/dl Random Glucose 1038 H* (74-106) mg/dL Lactic Acid (0.4-2.0) mmol/L Calcium 8.7 (8.5-10.1) mg/dL Phosphorus 3.1 (2.5-4.9) mg/dL Magnesium 2.3 (1.5-2.5) mg/dL Total Bilirubin 0.6 (0.2-1.0) mg/dL AST 9 L (15-37) U/L ALT 13 (10-53) U/L Alkaline Phosphatase 324 H (45-117) U/L Total Alk Phosphatase (33-130) U/L Alk Phos Iso-Intestine (1-24) % Alk Phos Iso-Intes Intp Alk Phos Iso-Bone (28-66) % Alk Phos Iso-Liver (25-69) % Alk Phos Iso-Macro Hepat Alk Phos Iso-Placenta (0) U/L C-Reactive Protein (0.00-0.30) mg/dL Total Protein 9.4 H (6.4-8.2) g/dL Albumin 2.6 L (3.4-5.0) g/dL Prealbumin (20-40) mg/dL Lipase 171 (73-393) U/L Urine Color (Yellw/Straw) Urine Clarity (Clear) Urine pH (5.0-8.5) Ur Specific [place] (1.002-1.035) Urine Protein (Neg-Trace) mg/dL Urine Glucose (UA) (Negative) mg/dL Urine Ketones (Negative) mg/dL Urine Occult Blood (Negative) Urine Nitrate (Negative) Urine Bilirubin (Negative) Urine Urobilinogen (Less than 2) mg/dL Ur Leukocyte Esterase (Negative) Urine RBC (0-3) /hpf Urine WBC (0-5) /hpf Urine WBC Clumps (None) Ur Squamous Epith Cells (0-5) /hpf Urine Bacteria (None) /hpf Urine Yeast (None) /hpf Micro UA Comment Ur Microscopic Review Urine Culture Comments Nasal Screen MRSA (PCR) (Negative) 11/28/17 11/28/17 11/28/17 Range/Units 05:12 06:43 07:21 WBC (4.0-11.0) th/mm3 RBC (4.00-5.30) mil/mm3 Hgb (11.6-15.3) gm/dL Hct (35.0-46.0) % MCV (80.0-100.0) fL MCH (27.0-34.0) pg MCHC (32.0-36.0) % RDW (11.6-17.2) % Plt Count (150-450) th/mm3 MPV (7.0-11.0) fL Neut % (Auto) (16.0-70.0) % Lymph % (Auto) (9.0-44.0) % [place] % (Auto) (0.0-8.0) % Eos % (Auto) (0.0-4.0) % Baso % (Auto) (0.0-2.0) % Neut # (Auto) (1.8-7.7) th/mm3 Lymph # (Auto) (1.0-4.8) th/mm3 [place] # (Auto) (0.0-0.9) th/mm3 Eos # (Auto) (0.0-0.4) th/mm3 Baso # (Auto) (0.0-0.2) th/mm3 WBC Differential Differential Comment ESR (0-30) mm/hr Sodium (136-145) meq/L Potassium (3.5-5.1) meq/L Chloride (98-107) meq/L Carbon Dioxide (21.0-32.0) meq/L Anion Gap (5-15) meq/L BUN (7-18) mg/dL Creatinine (0.50-1.00) mg/dL Estimated GFR (>89) mL/min POC Glucose Greater than 600 H* (68-110) mg/dl Random Glucose (74-106) mg/dL Lactic Acid 2.0 (0.4-2.0) mmol/L Calcium (8.5-10.1) mg/dL Phosphorus (2.5-4.9) mg/dL Magnesium (1.5-2.5) mg/dL Total Bilirubin (0.2-1.0) mg/dL AST (15-37) U/L ALT (10-53) U/L Alkaline Phosphatase (45-117) U/L Total Alk Phosphatase (33-130) U/L Alk Phos Iso-Intestine (1-24) % Alk Phos Iso-Intes Intp Alk Phos Iso-Bone (28-66) % Alk Phos Iso-Liver (25-69) % Alk Phos Iso-Macro Hepat Alk Phos Iso-Placenta (0) U/L C-Reactive Protein (0.00-0.30) mg/dL Total Protein (6.4-8.2) g/dL Albumin (3.4-5.0) g/dL Prealbumin (20-40) mg/dL Lipase (73-393) U/L Urine Color Yellow (Yellw/Straw) Urine Clarity Cloudy H (Clear) Urine pH 5.0 (5.0-8.5) Ur Specific [place] 1.021 (1.002-1.035) Urine Protein Negative (Neg-Trace) mg/dL Urine Glucose (UA) 500 or greater (Negative) mg/dL Urine Ketones Trace H (Negative) mg/dL Urine Occult Blood Large H (Negative) Urine Nitrate Negative (Negative) Urine Bilirubin Negative (Negative) Urine Urobilinogen Less than 2 (Less than 2) mg/dL Ur Leukocyte Esterase Large H (Negative) Urine RBC 15 H (0-3) /hpf Urine WBC (0-5) /hpf Urine WBC Clumps Many H (None) Ur Squamous Epith Cells 10 (0-5) /hpf Urine Bacteria Many H (None) /hpf Urine Yeast Moderate H (None) /hpf Micro UA Comment Culture indicated Ur Microscopic Review Not Reportable Urine Culture Comments Culture indicated Nasal Screen MRSA (PCR) (Negative) 11/28/17 11/28/17 11/28/17 Range/Units 07:45 08:59 09:37 WBC (4.0-11.0) th/mm3 RBC (4.00-5.30) mil/mm3 Hgb (11.6-15.3) gm/dL Hct (35.0-46.0) % MCV (80.0-100.0) fL MCH (27.0-34.0) pg MCHC (32.0-36.0) % RDW (11.6-17.2) % Plt Count (150-450) th/mm3 MPV (7.0-11.0) fL Neut % (Auto) (16.0-70.0) % Lymph % (Auto) (9.0-44.0) % [place] % (Auto) (0.0-8.0) % Eos % (Auto) (0.0-4.0) % Baso % (Auto) (0.0-2.0) % Neut # (Auto) (1.8-7.7) th/mm3 Lymph # (Auto) (1.0-4.8) th/mm3 [place] # (Auto) (0.0-0.9) th/mm3 Eos # (Auto) (0.0-0.4) th/mm3 Baso # (Auto) (0.0-0.2) th/mm3 WBC Differential Differential Comment ESR (0-30) mm/hr Sodium (136-145) meq/L Potassium (3.5-5.1) meq/L Chloride (98-107) meq/L Carbon Dioxide (21.0-32.0) meq/L Anion Gap (5-15) meq/L BUN (7-18) mg/dL Creatinine (0.50-1.00) mg/dL Estimated GFR (>89) mL/min POC Glucose Greater than 600 H* Greater than 600 H* (68-110) mg/dl Random Glucose 725 H* D (74-106) mg/dL Lactic Acid (0.4-2.0) mmol/L Calcium (8.5-10.1) mg/dL Phosphorus (2.5-4.9) mg/dL Magnesium (1.5-2.5) mg/dL Total Bilirubin (0.2-1.0) mg/dL AST (15-37) U/L ALT (10-53) U/L Alkaline Phosphatase (45-117) U/L Total Alk Phosphatase (33-130) U/L Alk Phos Iso-Intestine (1-24) % Alk Phos Iso-Intes Intp Alk Phos Iso-Bone (28-66) % Alk Phos Iso-Liver (25-69) % Alk Phos Iso-Macro Hepat Alk Phos Iso-Placenta (0) U/L C-Reactive Protein (0.00-0.30) mg/dL Total Protein (6.4-8.2) g/dL Albumin (3.4-5.0) g/dL Prealbumin (20-40) mg/dL Lipase (73-393) U/L Urine Color (Yellw/Straw) Urine Clarity (Clear) Urine pH (5.0-8.5) Ur Specific [place] (1.002-1.035) Urine Protein (Neg-Trace) mg/dL Urine Glucose (UA) (Negative) mg/dL Urine Ketones (Negative) mg/dL Urine Occult Blood (Negative) Urine Nitrate (Negative) Urine Bilirubin (Negative) Urine Urobilinogen (Less than 2) mg/dL Ur Leukocyte Esterase (Negative) Urine RBC (0-3) /hpf Urine WBC (0-5) /hpf Urine WBC Clumps (None) Ur Squamous Epith Cells (0-5) /hpf Urine Bacteria (None) /hpf Urine Yeast (None) /hpf Micro UA Comment Ur Microscopic Review Urine Culture Comments Nasal Screen MRSA (PCR) (Negative) 11/28/17 11/28/17 11/28/17 Range/Units 10:30 11:40 13:53 WBC (4.0-11.0) th/mm3 RBC (4.00-5.30) mil/mm3 Hgb (11.6-15.3) gm/dL Hct (35.0-46.0) % MCV (80.0-100.0) fL MCH (27.0-34.0) pg MCHC (32.0-36.0) % RDW (11.6-17.2) % Plt Count (150-450) th/mm3 MPV (7.0-11.0) fL Neut % (Auto) (16.0-70.0) % Lymph % (Auto) (9.0-44.0) % [place] % (Auto) (0.0-8.0) % Eos % (Auto) (0.0-4.0) % Baso % (Auto) (0.0-2.0) % Neut # (Auto) (1.8-7.7) th/mm3 Lymph # (Auto) (1.0-4.8) th/mm3 [place] # (Auto) (0.0-0.9) th/mm3 Eos # (Auto) (0.0-0.4) th/mm3 Baso # (Auto) (0.0-0.2) th/mm3 WBC Differential Differential Comment ESR (0-30) mm/hr Sodium 129 L D (136-145) meq/L Potassium 3.4 L D (3.5-5.1) meq/L Chloride 95 L D (98-107) meq/L Carbon Dioxide 21.1 (21.0-32.0) meq/L Anion Gap 13 (5-15) meq/L BUN 39 H (7-18) mg/dL Creatinine 1.60 H (0.50-1.00) mg/dL Estimated GFR 34 L (>89) mL/min POC Glucose 161 H (68-110) mg/dl Random Glucose 289 H D (74-106) mg/dL Lactic Acid (0.4-2.0) mmol/L Calcium 8.3 L (8.5-10.1) mg/dL Phosphorus (2.5-4.9) mg/dL Magnesium (1.5-2.5) mg/dL Total Bilirubin (0.2-1.0) mg/dL AST (15-37) U/L ALT (10-53) U/L Alkaline Phosphatase (45-117) U/L Total Alk Phosphatase (33-130) U/L Alk Phos Iso-Intestine (1-24) % Alk Phos Iso-Intes Intp Alk Phos Iso-Bone (28-66) % Alk Phos Iso-Liver (25-69) % Alk Phos Iso-Macro Hepat Alk Phos Iso-Placenta (0) U/L C-Reactive Protein (0.00-0.30) mg/dL Total Protein (6.4-8.2) g/dL Albumin (3.4-5.0) g/dL Prealbumin 9 L (20-40) mg/dL Lipase (73-393) U/L Urine Color (Yellw/Straw) Urine Clarity (Clear) Urine pH (5.0-8.5) Ur Specific [place] (1.002-1.035) Urine Protein (Neg-Trace) mg/dL Urine Glucose (UA) (Negative) mg/dL Urine Ketones (Negative) mg/dL Urine Occult Blood (Negative) Urine Nitrate (Negative) Urine Bilirubin (Negative) Urine Urobilinogen (Less than 2) mg/dL Ur Leukocyte Esterase (Negative) Urine RBC (0-3) /hpf Urine WBC (0-5) /hpf Urine WBC Clumps (None) Ur Squamous Epith Cells (0-5) /hpf Urine Bacteria (None) /hpf Urine Yeast (None) /hpf Micro UA Comment Ur Microscopic Review Urine Culture Comments Nasal Screen MRSA (PCR) Mrsa detected (Negative) 11/28/17 11/28/17 11/28/17 Range/Units 15:03 16:01 17:03 WBC (4.0-11.0) th/mm3 RBC (4.00-5.30) mil/mm3 Hgb (11.6-15.3) gm/dL Hct (35.0-46.0) % MCV (80.0-100.0) fL MCH (27.0-34.0) pg MCHC (32.0-36.0) % RDW (11.6-17.2) % Plt Count (150-450) th/mm3 MPV (7.0-11.0) fL Neut % (Auto) (16.0-70.0) % Lymph % (Auto) (9.0-44.0) % [place] % (Auto) (0.0-8.0) % Eos % (Auto) (0.0-4.0) % Baso % (Auto) (0.0-2.0) % Neut # (Auto) (1.8-7.7) th/mm3 Lymph # (Auto) (1.0-4.8) th/mm3 [place] # (Auto) (0.0-0.9) th/mm3 Eos # (Auto) (0.0-0.4) th/mm3 Baso # (Auto) (0.0-0.2) th/mm3 WBC Differential Differential Comment ESR (0-30) mm/hr Sodium (136-145) meq/L Potassium (3.5-5.1) meq/L Chloride (98-107) meq/L Carbon Dioxide (21.0-32.0) meq/L Anion Gap (5-15) meq/L BUN (7-18) mg/dL Creatinine (0.50-1.00) mg/dL Estimated GFR (>89) mL/min POC Glucose 138 H 144 H 162 H (68-110) mg/dl Random Glucose (74-106) mg/dL Lactic Acid (0.4-2.0) mmol/L Calcium (8.5-10.1) mg/dL Phosphorus (2.5-4.9) mg/dL Magnesium (1.5-2.5) mg/dL Total Bilirubin (0.2-1.0) mg/dL AST (15-37) U/L ALT (10-53) U/L Alkaline Phosphatase (45-117) U/L Total Alk Phosphatase (33-130) U/L Alk Phos Iso-Intestine (1-24) % Alk Phos Iso-Intes Intp Alk Phos Iso-Bone (28-66) % Alk Phos Iso-Liver (25-69) % Alk Phos Iso-Macro Hepat Alk Phos Iso-Placenta (0) U/L C-Reactive Protein (0.00-0.30) mg/dL Total Protein (6.4-8.2) g/dL Albumin (3.4-5.0) g/dL Prealbumin (20-40) mg/dL Lipase (73-393) U/L Urine Color (Yellw/Straw) Urine Clarity (Clear) Urine pH (5.0-8.5) Ur Specific [place] (1.002-1.035) Urine Protein (Neg-Trace) mg/dL Urine Glucose (UA) (Negative) mg/dL Urine Ketones (Negative) mg/dL Urine Occult Blood (Negative) Urine Nitrate (Negative) Urine Bilirubin (Negative) Urine Urobilinogen (Less than 2) mg/dL Ur Leukocyte Esterase (Negative) Urine RBC (0-3) /hpf Urine WBC (0-5) /hpf Urine WBC Clumps (None) Ur Squamous Epith Cells (0-5) /hpf Urine Bacteria (None) /hpf Urine Yeast (None) /hpf Micro UA Comment Ur Microscopic Review Urine Culture Comments Nasal Screen MRSA (PCR) (Negative) 11/28/17 11/28/17 11/28/17 Range/Units 18:00 18:49 20:39 WBC (4.0-11.0) th/mm3 RBC (4.00-5.30) mil/mm3 Hgb (11.6-15.3) gm/dL Hct (35.0-46.0) % MCV (80.0-100.0) fL MCH (27.0-34.0) pg MCHC (32.0-36.0) % RDW (11.6-17.2) % Plt Count (150-450) th/mm3 MPV (7.0-11.0) fL Neut % (Auto) (16.0-70.0) % Lymph % (Auto) (9.0-44.0) % [place] % (Auto) (0.0-8.0) % Eos % (Auto) (0.0-4.0) % Baso % (Auto) (0.0-2.0) % Neut # (Auto) (1.8-7.7) th/mm3 Lymph # (Auto) (1.0-4.8) th/mm3 [place] # (Auto) (0.0-0.9) th/mm3 Eos # (Auto) (0.0-0.4) th/mm3 Baso # (Auto) (0.0-0.2) th/mm3 WBC Differential Differential Comment ESR (0-30) mm/hr Sodium (136-145) meq/L Potassium (3.5-5.1) meq/L Chloride (98-107) meq/L Carbon Dioxide (21.0-32.0) meq/L Anion Gap (5-15) meq/L BUN (7-18) mg/dL Creatinine (0.50-1.00) mg/dL Estimated GFR (>89) mL/min POC Glucose 144 H 150 H 140 H (68-110) mg/dl Random Glucose (74-106) mg/dL Lactic Acid (0.4-2.0) mmol/L Calcium (8.5-10.1) mg/dL Phosphorus (2.5-4.9) mg/dL Magnesium (1.5-2.5) mg/dL Total Bilirubin (0.2-1.0) mg/dL AST (15-37) U/L ALT (10-53) U/L Alkaline Phosphatase (45-117) U/L Total Alk Phosphatase (33-130) U/L Alk Phos Iso-Intestine (1-24) % Alk Phos Iso-Intes Intp Alk Phos Iso-Bone (28-66) % Alk Phos Iso-Liver (25-69) % Alk Phos Iso-Macro Hepat Alk Phos Iso-Placenta (0) U/L C-Reactive Protein (0.00-0.30) mg/dL Total Protein (6.4-8.2) g/dL Albumin (3.4-5.0) g/dL Prealbumin (20-40) mg/dL Lipase (73-393) U/L Urine Color (Yellw/Straw) Urine Clarity (Clear) Urine pH (5.0-8.5) Ur Specific [place] (1.002-1.035) Urine Protein (Neg-Trace) mg/dL Urine Glucose (UA) (Negative) mg/dL Urine Ketones (Negative) mg/dL Urine Occult Blood (Negative) Urine Nitrate (Negative) Urine Bilirubin (Negative) Urine Urobilinogen (Less than 2) mg/dL Ur Leukocyte Esterase (Negative) Urine RBC (0-3) /hpf Urine WBC (0-5) /hpf Urine WBC Clumps (None) Ur Squamous Epith Cells (0-5) /hpf Urine Bacteria (None) /hpf Urine Yeast (None) /hpf Micro UA Comment Ur Microscopic Review Urine Culture Comments Nasal Screen MRSA (PCR) (Negative) 11/29/17 11/29/17 11/29/17 Range/Units 00:42 06:05 06:05 WBC 11.1 H (4.0-11.0) th/mm3 RBC 3.90 L (4.00-5.30) mil/mm3 Hgb 11.0 L (11.6-15.3) gm/dL Hct 30.9 L (35.0-46.0) % MCV 79.3 L D (80.0-100.0) fL MCH 28.2 (27.0-34.0) pg MCHC 35.6 (32.0-36.0) % RDW 14.5 (11.6-17.2) % Plt Count 259 (150-450) th/mm3 MPV 9.4 (7.0-11.0) fL Neut % (Auto) 71.1 H (16.0-70.0) % Lymph % (Auto) 23.7 (9.0-44.0) % [place] % (Auto) 4.7 (0.0-8.0) % Eos % (Auto) 0.2 (0.0-4.0) % Baso % (Auto) 0.3 (0.0-2.0) % Neut # (Auto) 7.9 H (1.8-7.7) th/mm3 Lymph # (Auto) 2.6 (1.0-4.8) th/mm3 [place] # (Auto) 0.5 (0.0-0.9) th/mm3 Eos # (Auto) 0.0 (0.0-0.4) th/mm3 Baso # (Auto) 0.0 (0.0-0.2) th/mm3 WBC Differential . Differential Comment Auto diff final ESR (0-30) mm/hr Sodium 133 L (136-145) meq/L Potassium 5.2 H D (3.5-5.1) meq/L Chloride 101 (98-107) meq/L Carbon Dioxide 24.1 (21.0-32.0) meq/L Anion Gap 8 (5-15) meq/L BUN 30 H (7-18) mg/dL Creatinine 1.18 H (0.50-1.00) mg/dL Estimated GFR 48 L (>89) mL/min POC Glucose 205 H (68-110) mg/dl Random Glucose 190 H (74-106) mg/dL Lactic Acid (0.4-2.0) mmol/L Calcium 8.1 L (8.5-10.1) mg/dL Phosphorus (2.5-4.9) mg/dL Magnesium (1.5-2.5) mg/dL Total Bilirubin 0.3 (0.2-1.0) mg/dL AST 19 (15-37) U/L ALT 14 (10-53) U/L Alkaline Phosphatase 267 H (45-117) U/L Total Alk Phosphatase (33-130) U/L Alk Phos Iso-Intestine (1-24) % Alk Phos Iso-Intes Intp Alk Phos Iso-Bone (28-66) % Alk Phos Iso-Liver (25-69) % Alk Phos Iso-Macro Hepat Alk Phos Iso-Placenta (0) U/L C-Reactive Protein (0.00-0.30) mg/dL Total Protein 7.7 D (6.4-8.2) g/dL Albumin 2.1 L (3.4-5.0) g/dL Prealbumin (20-40) mg/dL Lipase (73-393) U/L Urine Color (Yellw/Straw) Urine Clarity (Clear) Urine pH (5.0-8.5) Ur Specific [place] (1.002-1.035) Urine Protein (Neg-Trace) mg/dL Urine Glucose (UA) (Negative) mg/dL Urine Ketones (Negative) mg/dL Urine Occult Blood (Negative) Urine Nitrate (Negative) Urine Bilirubin (Negative) Urine Urobilinogen (Less than 2) mg/dL Ur Leukocyte Esterase (Negative) Urine RBC (0-3) /hpf Urine WBC (0-5) /hpf Urine WBC Clumps (None) Ur Squamous Epith Cells (0-5) /hpf Urine Bacteria (None) /hpf Urine Yeast (None) /hpf Micro UA Comment Ur Microscopic Review Urine Culture Comments Nasal Screen MRSA (PCR) (Negative) 11/29/17 11/29/17 11/29/17 Range/Units 08:11 12:50 17:48 WBC (4.0-11.0) th/mm3 RBC (4.00-5.30) mil/mm3 Hgb (11.6-15.3) gm/dL Hct (35.0-46.0) % MCV (80.0-100.0) fL MCH (27.0-34.0) pg MCHC (32.0-36.0) % RDW (11.6-17.2) % Plt Count (150-450) th/mm3 MPV (7.0-11.0) fL Neut % (Auto) (16.0-70.0) % Lymph % (Auto) (9.0-44.0) % [place] % (Auto) (0.0-8.0) % Eos % (Auto) (0.0-4.0) % Baso % (Auto) (0.0-2.0) % Neut # (Auto) (1.8-7.7) th/mm3 Lymph # (Auto) (1.0-4.8) th/mm3 [place] # (Auto) (0.0-0.9) th/mm3 Eos # (Auto) (0.0-0.4) th/mm3 Baso # (Auto) (0.0-0.2) th/mm3 WBC Differential Differential Comment ESR (0-30) mm/hr Sodium (136-145) meq/L Potassium (3.5-5.1) meq/L Chloride (98-107) meq/L Carbon Dioxide (21.0-32.0) meq/L Anion Gap (5-15) meq/L BUN (7-18) mg/dL Creatinine (0.50-1.00) mg/dL Estimated GFR (>89) mL/min POC Glucose 242 H 254 H 142 H (68-110) mg/dl Random Glucose (74-106) mg/dL Lactic Acid (0.4-2.0) mmol/L Calcium (8.5-10.1) mg/dL Phosphorus (2.5-4.9) mg/dL Magnesium (1.5-2.5) mg/dL Total Bilirubin (0.2-1.0) mg/dL AST (15-37) U/L ALT (10-53) U/L Alkaline Phosphatase (45-117) U/L Total Alk Phosphatase (33-130) U/L Alk Phos Iso-Intestine (1-24) % Alk Phos Iso-Intes Intp Alk Phos Iso-Bone (28-66) % Alk Phos Iso-Liver (25-69) % Alk Phos Iso-Macro Hepat Alk Phos Iso-Placenta (0) U/L C-Reactive Protein (0.00-0.30) mg/dL Total Protein (6.4-8.2) g/dL Albumin (3.4-5.0) g/dL Prealbumin (20-40) mg/dL Lipase (73-393) U/L Urine Color (Yellw/Straw) Urine Clarity (Clear) Urine pH (5.0-8.5) Ur Specific [place] (1.002-1.035) Urine Protein (Neg-Trace) mg/dL Urine Glucose (UA) (Negative) mg/dL Urine Ketones (Negative) mg/dL Urine Occult Blood (Negative) Urine Nitrate (Negative) Urine Bilirubin (Negative) Urine Urobilinogen (Less than 2) mg/dL Ur Leukocyte Esterase (Negative) Urine RBC (0-3) /hpf Urine WBC (0-5) /hpf Urine WBC Clumps (None) Ur Squamous Epith Cells (0-5) /hpf Urine Bacteria (None) /hpf Urine Yeast (None) /hpf Micro UA Comment Ur Microscopic Review Urine Culture Comments Nasal Screen MRSA (PCR) (Negative) 11/29/17 11/29/17 11/29/17 Range/Units 19:59 20:38 20:38 WBC (4.0-11.0) th/mm3 RBC (4.00-5.30) mil/mm3 Hgb (11.6-15.3) gm/dL Hct (35.0-46.0) % MCV (80.0-100.0) fL MCH (27.0-34.0) pg MCHC (32.0-36.0) % RDW (11.6-17.2) % Plt Count (150-450) th/mm3 MPV (7.0-11.0) fL Neut % (Auto) (16.0-70.0) % Lymph % (Auto) (9.0-44.0) % [place] % (Auto) (0.0-8.0) % Eos % (Auto) (0.0-4.0) % Baso % (Auto) (0.0-2.0) % Neut # (Auto) (1.8-7.7) th/mm3 Lymph # (Auto) (1.0-4.8) th/mm3 [place] # (Auto) (0.0-0.9) th/mm3 Eos # (Auto) (0.0-0.4) th/mm3 Baso # (Auto) (0.0-0.2) th/mm3 WBC Differential Differential Comment ESR Greater than 140 H (0-30) mm/hr Sodium (136-145) meq/L Potassium (3.5-5.1) meq/L Chloride (98-107) meq/L Carbon Dioxide (21.0-32.0) meq/L Anion Gap (5-15) meq/L BUN (7-18) mg/dL Creatinine (0.50-1.00) mg/dL Estimated GFR (>89) mL/min POC Glucose 183 H (68-110) mg/dl Random Glucose (74-106) mg/dL Lactic Acid (0.4-2.0) mmol/L Calcium (8.5-10.1) mg/dL Phosphorus (2.5-4.9) mg/dL Magnesium (1.5-2.5) mg/dL Total Bilirubin (0.2-1.0) mg/dL AST (15-37) U/L ALT (10-53) U/L Alkaline Phosphatase (45-117) U/L Total Alk Phosphatase (33-130) U/L Alk Phos Iso-Intestine (1-24) % Alk Phos Iso-Intes Intp Alk Phos Iso-Bone (28-66) % Alk Phos Iso-Liver (25-69) % Alk Phos Iso-Macro Hepat Alk Phos Iso-Placenta (0) U/L C-Reactive Protein 7.30 H (0.00-0.30) mg/dL Total Protein (6.4-8.2) g/dL Albumin (3.4-5.0) g/dL Prealbumin (20-40) mg/dL Lipase (73-393) U/L Urine Color (Yellw/Straw) Urine Clarity (Clear) Urine pH (5.0-8.5) Ur Specific [place] (1.002-1.035) Urine Protein (Neg-Trace) mg/dL Urine Glucose (UA) (Negative) mg/dL Urine Ketones (Negative) mg/dL Urine Occult Blood (Negative) Urine Nitrate (Negative) Urine Bilirubin (Negative) Urine Urobilinogen (Less than 2) mg/dL Ur Leukocyte Esterase (Negative) Urine RBC (0-3) /hpf Urine WBC (0-5) /hpf Urine WBC Clumps (None) Ur Squamous Epith Cells (0-5) /hpf Urine Bacteria (None) /hpf Urine Yeast (None) /hpf Micro UA Comment Ur Microscopic Review Urine Culture Comments Nasal Screen MRSA (PCR) (Negative) 11/30/17 11/30/17 11/30/17 Range/Units 06:17 06:17 08:10 WBC 10.3 (4.0-11.0) th/mm3 RBC 3.84 L (4.00-5.30) mil/mm3 Hgb 10.8 L (11.6-15.3) gm/dL Hct 31.4 L (35.0-46.0) % MCV 81.7 (80.0-100.0) fL MCH 28.1 (27.0-34.0) pg MCHC 34.4 (32.0-36.0) % RDW 14.3 (11.6-17.2) % Plt Count 252 (150-450) th/mm3 MPV 9.6 (7.0-11.0) fL Neut % (Auto) 69.7 (16.0-70.0) % Lymph % (Auto) 26.0 (9.0-44.0) % [place] % (Auto) 3.7 (0.0-8.0) % Eos % (Auto) 0.3 (0.0-4.0) % Baso % (Auto) 0.3 (0.0-2.0) % Neut # (Auto) 7.2 (1.8-7.7) th/mm3 Lymph # (Auto) 2.7 (1.0-4.8) th/mm3 [place] # (Auto) 0.4 (0.0-0.9) th/mm3 Eos # (Auto) 0.0 (0.0-0.4) th/mm3 Baso # (Auto) 0.0 (0.0-0.2) th/mm3 WBC Differential . Differential Comment Auto diff final ESR (0-30) mm/hr Sodium 135 L (136-145) meq/L Potassium 4.9 (3.5-5.1) meq/L Chloride 102 (98-107) meq/L Carbon Dioxide 25.6 (21.0-32.0) meq/L Anion Gap 7 (5-15) meq/L BUN 20 H (7-18) mg/dL Creatinine 0.95 (0.50-1.00) mg/dL Estimated GFR 62 L (>89) mL/min POC Glucose 184 H (68-110) mg/dl Random Glucose 149 H (74-106) mg/dL Lactic Acid (0.4-2.0) mmol/L Calcium 8.1 L (8.5-10.1) mg/dL Phosphorus (2.5-4.9) mg/dL Magnesium (1.5-2.5) mg/dL Total Bilirubin (0.2-1.0) mg/dL AST (15-37) U/L ALT (10-53) U/L Alkaline Phosphatase (45-117) U/L Total Alk Phosphatase (33-130) U/L Alk Phos Iso-Intestine (1-24) % Alk Phos Iso-Intes Intp Alk Phos Iso-Bone (28-66) % Alk Phos Iso-Liver (25-69) % Alk Phos Iso-Macro Hepat Alk Phos Iso-Placenta (0) U/L C-Reactive Protein (0.00-0.30) mg/dL Total Protein (6.4-8.2) g/dL Albumin (3.4-5.0) g/dL Prealbumin (20-40) mg/dL Lipase (73-393) U/L Urine Color (Yellw/Straw) Urine Clarity (Clear) Urine pH (5.0-8.5) Ur Specific [place] (1.002-1.035) Urine Protein (Neg-Trace) mg/dL Urine Glucose (UA) (Negative) mg/dL Urine Ketones (Negative) mg/dL Urine Occult Blood (Negative) Urine Nitrate (Negative) Urine Bilirubin (Negative) Urine Urobilinogen (Less than 2) mg/dL Ur Leukocyte Esterase (Negative) Urine RBC (0-3) /hpf Urine WBC (0-5) /hpf Urine WBC Clumps (None) Ur Squamous Epith Cells (0-5) /hpf Urine Bacteria (None) /hpf Urine Yeast (None) /hpf Micro UA Comment Ur Microscopic Review Urine Culture Comments Nasal Screen MRSA (PCR) (Negative) 11/30/17 11/30/17 11/30/17 Range/Units 12:40 16:34 19:40 WBC (4.0-11.0) th/mm3 RBC (4.00-5.30) mil/mm3 Hgb (11.6-15.3) gm/dL Hct (35.0-46.0) % MCV (80.0-100.0) fL MCH (27.0-34.0) pg MCHC (32.0-36.0) % RDW (11.6-17.2) % Plt Count (150-450) th/mm3 MPV (7.0-11.0) fL Neut % (Auto) (16.0-70.0) % Lymph % (Auto) (9.0-44.0) % [place] % (Auto) (0.0-8.0) % Eos % (Auto) (0.0-4.0) % Baso % (Auto) (0.0-2.0) % Neut # (Auto) (1.8-7.7) th/mm3 Lymph # (Auto) (1.0-4.8) th/mm3 [place] # (Auto) (0.0-0.9) th/mm3 Eos # (Auto) (0.0-0.4) th/mm3 Baso # (Auto) (0.0-0.2) th/mm3 WBC Differential Differential Comment ESR (0-30) mm/hr Sodium (136-145) meq/L Potassium (3.5-5.1) meq/L Chloride (98-107) meq/L Carbon Dioxide (21.0-32.0) meq/L Anion Gap (5-15) meq/L BUN (7-18) mg/dL Creatinine (0.50-1.00) mg/dL Estimated GFR (>89) mL/min POC Glucose 84 97 98 (68-110) mg/dl Random Glucose (74-106) mg/dL Lactic Acid (0.4-2.0) mmol/L Calcium (8.5-10.1) mg/dL Phosphorus (2.5-4.9) mg/dL Magnesium (1.5-2.5) mg/dL Total Bilirubin (0.2-1.0) mg/dL AST (15-37) U/L ALT (10-53) U/L Alkaline Phosphatase (45-117) U/L Total Alk Phosphatase (33-130) U/L Alk Phos Iso-Intestine (1-24) % Alk Phos Iso-Intes Intp Alk Phos Iso-Bone (28-66) % Alk Phos Iso-Liver (25-69) % Alk Phos Iso-Macro Hepat Alk Phos Iso-Placenta (0) U/L C-Reactive Protein (0.00-0.30) mg/dL Total Protein (6.4-8.2) g/dL Albumin (3.4-5.0) g/dL Prealbumin (20-40) mg/dL Lipase (73-393) U/L Urine Color (Yellw/Straw) Urine Clarity (Clear) Urine pH (5.0-8.5) Ur Specific [place] (1.002-1.035) Urine Protein (Neg-Trace) mg/dL Urine Glucose (UA) (Negative) mg/dL Urine Ketones (Negative) mg/dL Urine Occult Blood (Negative) Urine Nitrate (Negative) Urine Bilirubin (Negative) Urine Urobilinogen (Less than 2) mg/dL Ur Leukocyte Esterase (Negative) Urine RBC (0-3) /hpf Urine WBC (0-5) /hpf Urine WBC Clumps (None) Ur Squamous Epith Cells (0-5) /hpf Urine Bacteria (None) /hpf Urine Yeast (None) /hpf Micro UA Comment Ur Microscopic Review Urine Culture Comments Nasal Screen MRSA (PCR) (Negative) 12/01/17 12/01/17 12/01/17 Range/Units 05:42 07:50 10:00 WBC (4.0-11.0) th/mm3 RBC (4.00-5.30) mil/mm3 Hgb (11.6-15.3) gm/dL Hct (35.0-46.0) % MCV (80.0-100.0) fL MCH (27.0-34.0) pg MCHC (32.0-36.0) % RDW (11.6-17.2) % Plt Count (150-450) th/mm3 MPV (7.0-11.0) fL Neut % (Auto) (16.0-70.0) % Lymph % (Auto) (9.0-44.0) % [place] % (Auto) (0.0-8.0) % Eos % (Auto) (0.0-4.0) % Baso % (Auto) (0.0-2.0) % Neut # (Auto) (1.8-7.7) th/mm3 Lymph # (Auto) (1.0-4.8) th/mm3 [place] # (Auto) (0.0-0.9) th/mm3 Eos # (Auto) (0.0-0.4) th/mm3 Baso # (Auto) (0.0-0.2) th/mm3 WBC Differential Differential Comment ESR (0-30) mm/hr Sodium 135 L (136-145) meq/L Potassium 4.7 (3.5-5.1) meq/L Chloride 101 (98-107) meq/L Carbon Dioxide 23.7 (21.0-32.0) meq/L Anion Gap 10 (5-15) meq/L BUN 17 (7-18) mg/dL Creatinine 0.85 (0.50-1.00) mg/dL Estimated GFR 70 L (>89) mL/min POC Glucose 207 H (68-110) mg/dl Random Glucose 178 H (74-106) mg/dL Lactic Acid (0.4-2.0) mmol/L Calcium 8.0 L (8.5-10.1) mg/dL Phosphorus (2.5-4.9) mg/dL Magnesium (1.5-2.5) mg/dL Total Bilirubin (0.2-1.0) mg/dL AST (15-37) U/L ALT (10-53) U/L Alkaline Phosphatase (45-117) U/L Total Alk Phosphatase 322 H (33-130) U/L Alk Phos Iso-Intestine 0 L (1-24) % Alk Phos Iso-Intes Intp ND Alk Phos Iso-Bone 32 (28-66) % Alk Phos Iso-Liver 68 (25-69) % Alk Phos Iso-Macro Hepat ND Alk Phos Iso-Placenta 0 (0) U/L C-Reactive Protein (0.00-0.30) mg/dL Total Protein (6.4-8.2) g/dL Albumin (3.4-5.0) g/dL Prealbumin (20-40) mg/dL Lipase (73-393) U/L Urine Color (Yellw/Straw) Urine Clarity (Clear) Urine pH (5.0-8.5) Ur Specific [place] (1.002-1.035) Urine Protein (Neg-Trace) mg/dL Urine Glucose (UA) (Negative) mg/dL Urine Ketones (Negative) mg/dL Urine Occult Blood (Negative) Urine Nitrate (Negative) Urine Bilirubin (Negative) Urine Urobilinogen (Less than 2) mg/dL Ur Leukocyte Esterase (Negative) Urine RBC (0-3) /hpf Urine WBC (0-5) /hpf Urine WBC Clumps (None) Ur Squamous Epith Cells (0-5) /hpf Urine Bacteria (None) /hpf Urine Yeast (None) /hpf Micro UA Comment Ur Microscopic Review Urine Culture Comments Nasal Screen MRSA (PCR) (Negative) 12/01/17 12/02/17 12/02/17 Range/Units 12:08 05:50 12:56 WBC (4.0-11.0) th/mm3 RBC (4.00-5.30) mil/mm3 Hgb (11.6-15.3) gm/dL Hct (35.0-46.0) % MCV (80.0-100.0) fL MCH (27.0-34.0) pg MCHC (32.0-36.0) % RDW (11.6-17.2) % Plt Count (150-450) th/mm3 MPV (7.0-11.0) fL Neut % (Auto) (16.0-70.0) % Lymph % (Auto) (9.0-44.0) % [place] % (Auto) (0.0-8.0) % Eos % (Auto) (0.0-4.0) % Baso % (Auto) (0.0-2.0) % Neut # (Auto) (1.8-7.7) th/mm3 Lymph # (Auto) (1.0-4.8) th/mm3 [place] # (Auto) (0.0-0.9) th/mm3 Eos # (Auto) (0.0-0.4) th/mm3 Baso # (Auto) (0.0-0.2) th/mm3 WBC Differential Differential Comment ESR (0-30) mm/hr Sodium 134 L (136-145) meq/L Potassium 3.8 D (3.5-5.1) meq/L Chloride 101 (98-107) meq/L Carbon Dioxide 24.9 (21.0-32.0) meq/L Anion Gap 8 (5-15) meq/L BUN 17 (7-18) mg/dL Creatinine 0.87 (0.50-1.00) mg/dL Estimated GFR 68 L (>89) mL/min POC Glucose 311 H 217 H (68-110) mg/dl Random Glucose 152 H (74-106) mg/dL Lactic Acid (0.4-2.0) mmol/L Calcium 7.9 L (8.5-10.1) mg/dL Phosphorus (2.5-4.9) mg/dL Magnesium (1.5-2.5) mg/dL Total Bilirubin (0.2-1.0) mg/dL AST (15-37) U/L ALT (10-53) U/L Alkaline Phosphatase (45-117) U/L Total Alk Phosphatase (33-130) U/L Alk Phos Iso-Intestine (1-24) % Alk Phos Iso-Intes Intp Alk Phos Iso-Bone (28-66) % Alk Phos Iso-Liver (25-69) % Alk Phos Iso-Macro Hepat Alk Phos Iso-Placenta (0) U/L C-Reactive Protein (0.00-0.30) mg/dL Total Protein (6.4-8.2) g/dL Albumin (3.4-5.0) g/dL Prealbumin (20-40) mg/dL Lipase (73-393) U/L Urine Color (Yellw/Straw) Urine Clarity (Clear) Urine pH (5.0-8.5) Ur Specific [place] (1.002-1.035) Urine Protein (Neg-Trace) mg/dL Urine Glucose (UA) (Negative) mg/dL Urine Ketones (Negative) mg/dL Urine Occult Blood (Negative) Urine Nitrate (Negative) Urine Bilirubin (Negative) Urine Urobilinogen (Less than 2) mg/dL Ur Leukocyte Esterase (Negative) Urine RBC (0-3) /hpf Urine WBC (0-5) /hpf Urine WBC Clumps (None) Ur Squamous Epith Cells (0-5) /hpf Urine Bacteria (None) /hpf Urine Yeast (None) /hpf Micro UA Comment Ur Microscopic Review Urine Culture Comments Nasal Screen MRSA (PCR) (Negative) 12/02/17 12/02/17 12/03/17 Range/Units 16:22 19:37 06:19 WBC (4.0-11.0) th/mm3 RBC (4.00-5.30) mil/mm3 Hgb (11.6-15.3) gm/dL Hct (35.0-46.0) % MCV (80.0-100.0) fL MCH (27.0-34.0) pg MCHC (32.0-36.0) % RDW (11.6-17.2) % Plt Count (150-450) th/mm3 MPV (7.0-11.0) fL Neut % (Auto) (16.0-70.0) % Lymph % (Auto) (9.0-44.0) % [place] % (Auto) (0.0-8.0) % Eos % (Auto) (0.0-4.0) % Baso % (Auto) (0.0-2.0) % Neut # (Auto) (1.8-7.7) th/mm3 Lymph # (Auto) (1.0-4.8) th/mm3 [place] # (Auto) (0.0-0.9) th/mm3 Eos # (Auto) (0.0-0.4) th/mm3 Baso # (Auto) (0.0-0.2) th/mm3 WBC Differential Differential Comment ESR (0-30) mm/hr Sodium 136 (136-145) meq/L Potassium 3.5 (3.5-5.1) meq/L Chloride 101 (98-107) meq/L Carbon Dioxide 24.2 (21.0-32.0) meq/L Anion Gap 11 (5-15) meq/L BUN 15 (7-18) mg/dL Creatinine 0.69 (0.50-1.00) mg/dL Estimated GFR 89 (>89) mL/min POC Glucose 159 H 203 H (68-110) mg/dl Random Glucose 135 H (74-106) mg/dL Lactic Acid (0.4-2.0) mmol/L Calcium 8.3 L (8.5-10.1) mg/dL Phosphorus (2.5-4.9) mg/dL Magnesium (1.5-2.5) mg/dL Total Bilirubin (0.2-1.0) mg/dL AST (15-37) U/L ALT (10-53) U/L Alkaline Phosphatase (45-117) U/L Total Alk Phosphatase (33-130) U/L Alk Phos Iso-Intestine (1-24) % Alk Phos Iso-Intes Intp Alk Phos Iso-Bone (28-66) % Alk Phos Iso-Liver (25-69) % Alk Phos Iso-Macro Hepat Alk Phos Iso-Placenta (0) U/L C-Reactive Protein (0.00-0.30) mg/dL Total Protein (6.4-8.2) g/dL Albumin (3.4-5.0) g/dL Prealbumin (20-40) mg/dL Lipase (73-393) U/L Urine Color (Yellw/Straw) Urine Clarity (Clear) Urine pH (5.0-8.5) Ur Specific [place] (1.002-1.035) Urine Protein (Neg-Trace) mg/dL Urine Glucose (UA) (Negative) mg/dL Urine Ketones (Negative) mg/dL Urine Occult Blood (Negative) Urine Nitrate (Negative) Urine Bilirubin (Negative) Urine Urobilinogen (Less than 2) mg/dL Ur Leukocyte Esterase (Negative) Urine RBC (0-3) /hpf Urine WBC (0-5) /hpf Urine WBC Clumps (None) Ur Squamous Epith Cells (0-5) /hpf Urine Bacteria (None) /hpf Urine Yeast (None) /hpf Micro UA Comment Ur Microscopic Review Urine Culture Comments Nasal Screen MRSA (PCR) (Negative) 12/03/17 12/03/17 12/03/17 Range/Units 06:40 07:40 12:30 WBC 9.1 (4.0-11.0) th/mm3 RBC 3.65 L (4.00-5.30) mil/mm3 Hgb 10.0 L (11.6-15.3) gm/dL Hct 30.0 L (35.0-46.0) % MCV 82.3 (80.0-100.0) fL MCH 27.4 (27.0-34.0) pg MCHC 33.3 (32.0-36.0) % RDW 14.2 (11.6-17.2) % Plt Count 228 (150-450) th/mm3 MPV 8.8 (7.0-11.0) fL Neut % (Auto) 60.2 (16.0-70.0) % Lymph % (Auto) 33.7 (9.0-44.0) % [place] % (Auto) 5.4 (0.0-8.0) % Eos % (Auto) 0.3 (0.0-4.0) % Baso % (Auto) 0.4 (0.0-2.0) % Neut # (Auto) 5.5 (1.8-7.7) th/mm3 Lymph # (Auto) 3.1 (1.0-4.8) th/mm3 [place] # (Auto) 0.5 (0.0-0.9) th/mm3 Eos # (Auto) 0.0 (0.0-0.4) th/mm3 Baso # (Auto) 0.0 (0.0-0.2) th/mm3 WBC Differential . Differential Comment Auto diff final ESR (0-30) mm/hr Sodium (136-145) meq/L Potassium (3.5-5.1) meq/L Chloride (98-107) meq/L Carbon Dioxide (21.0-32.0) meq/L Anion Gap (5-15) meq/L BUN (7-18) mg/dL Creatinine (0.50-1.00) mg/dL Estimated GFR (>89) mL/min POC Glucose 146 H 279 H (68-110) mg/dl Random Glucose (74-106) mg/dL Lactic Acid (0.4-2.0) mmol/L Calcium (8.5-10.1) mg/dL Phosphorus (2.5-4.9) mg/dL Magnesium (1.5-2.5) mg/dL Total Bilirubin (0.2-1.0) mg/dL AST (15-37) U/L ALT (10-53) U/L Alkaline Phosphatase (45-117) U/L Total Alk Phosphatase (33-130) U/L Alk Phos Iso-Intestine (1-24) % Alk Phos Iso-Intes Intp Alk Phos Iso-Bone (28-66) % Alk Phos Iso-Liver (25-69) % Alk Phos Iso-Macro Hepat Alk Phos Iso-Placenta (0) U/L C-Reactive Protein (0.00-0.30) mg/dL Total Protein (6.4-8.2) g/dL Albumin (3.4-5.0) g/dL Prealbumin (20-40) mg/dL Lipase (73-393) U/L Urine Color (Yellw/Straw) Urine Clarity (Clear) Urine pH (5.0-8.5) Ur Specific [place] (1.002-1.035) Urine Protein (Neg-Trace) mg/dL Urine Glucose (UA) (Negative) mg/dL Urine Ketones (Negative) mg/dL Urine Occult Blood (Negative) Urine Nitrate (Negative) Urine Bilirubin (Negative) Urine Urobilinogen (Less than 2) mg/dL Ur Leukocyte Esterase (Negative) Urine RBC (0-3) /hpf Urine WBC (0-5) /hpf Urine WBC Clumps (None) Ur Squamous Epith Cells (0-5) /hpf Urine Bacteria (None) /hpf Urine Yeast (None) /hpf Micro UA Comment Ur Microscopic Review Urine Culture Comments Nasal Screen MRSA (PCR) (Negative) 12/03/17 12/03/17 12/04/17 Range/Units 17:22 20:23 13:28 WBC (4.0-11.0) th/mm3 RBC (4.00-5.30) mil/mm3 Hgb (11.6-15.3) gm/dL Hct (35.0-46.0) % MCV (80.0-100.0) fL MCH (27.0-34.0) pg MCHC (32.0-36.0) % RDW (11.6-17.2) % Plt Count (150-450) th/mm3 MPV (7.0-11.0) fL Neut % (Auto) (16.0-70.0) % Lymph % (Auto) (9.0-44.0) % [place] % (Auto) (0.0-8.0) % Eos % (Auto) (0.0-4.0) % Baso % (Auto) (0.0-2.0) % Neut # (Auto) (1.8-7.7) th/mm3 Lymph # (Auto) (1.0-4.8) th/mm3 [place] # (Auto) (0.0-0.9) th/mm3 Eos # (Auto) (0.0-0.4) th/mm3 Baso # (Auto) (0.0-0.2) th/mm3 WBC Differential Differential Comment ESR (0-30) mm/hr Sodium (136-145) meq/L Potassium (3.5-5.1) meq/L Chloride (98-107) meq/L Carbon Dioxide (21.0-32.0) meq/L Anion Gap (5-15) meq/L BUN (7-18) mg/dL Creatinine (0.50-1.00) mg/dL Estimated GFR (>89) mL/min POC Glucose 261 H 208 H 198 H (68-110) mg/dl Random Glucose (74-106) mg/dL Lactic Acid (0.4-2.0) mmol/L Calcium (8.5-10.1) mg/dL Phosphorus (2.5-4.9) mg/dL Magnesium (1.5-2.5) mg/dL Total Bilirubin (0.2-1.0) mg/dL AST (15-37) U/L ALT (10-53) U/L Alkaline Phosphatase (45-117) U/L Total Alk Phosphatase (33-130) U/L Alk Phos Iso-Intestine (1-24) % Alk Phos Iso-Intes Intp Alk Phos Iso-Bone (28-66) % Alk Phos Iso-Liver (25-69) % Alk Phos Iso-Macro Hepat Alk Phos Iso-Placenta (0) U/L C-Reactive Protein (0.00-0.30) mg/dL Total Protein (6.4-8.2) g/dL Albumin (3.4-5.0) g/dL Prealbumin (20-40) mg/dL Lipase (73-393) U/L Urine Color (Yellw/Straw) Urine Clarity (Clear) Urine pH (5.0-8.5) Ur Specific [place] (1.002-1.035) Urine Protein (Neg-Trace) mg/dL Urine Glucose (UA) (Negative) mg/dL Urine Ketones (Negative) mg/dL Urine Occult Blood (Negative) Urine Nitrate (Negative) Urine Bilirubin (Negative) Urine Urobilinogen (Less than 2) mg/dL Ur Leukocyte Esterase (Negative) Urine RBC (0-3) /hpf Urine WBC (0-5) /hpf Urine WBC Clumps (None) Ur Squamous Epith Cells (0-5) /hpf Urine Bacteria (None) /hpf Urine Yeast (None) /hpf Micro UA Comment Ur Microscopic Review Urine Culture Comments Nasal Screen MRSA (PCR) (Negative) Imaging Data Radiologist's impression: Foot X-Ray 11/29/17 17:38 CONCLUSION: Questionable findings described above in the fifth proximal phalanx and first proximal phalanx. It can be correlated these are potential sites of injury. Discharge Plan Discharge Disposition Patient Disposition: Disch /Home Health Service Discharge Condition Condition: Stable Discharge Order Discharge Orders: Discharge Order (Routine); Ordered 12/04/17 Ordered By: Neeta Tena Discharge Details Anticipated Discharge Date: 12/04/17 Physicians Team ED Provider: Derrick De Leon Primary Care Provider: UNKNOWN, Attending Provider: Neeta Tena Other Providers: Dwight Kothari ; Kimberly York ; Laverne Blas ; [place] Song Status ED Status: Left Department Discharge Information Discharge Date/Time: 11/28/17 08:46
[2017-11-28 05:50] LABS: Alanine Aminotransferase 13 U/L (10-53); Albumin 2.6 g/dL (3.4-5.0); Alkaline Phosphatase 324 U/L (45-117); Anion Gap 17 meq/L (5-15); Aspartate Aminotransferase 9 U/L (15-37); Blood Urea Nitrogen 45 mg/dL (7-18); Calcium 8.7 mg/dL (8.5-10.1); Carbon Dioxide 22.6 meq/L (21.0-32.0); Chloride 72 meq/L (98-107); Glomerular Filtration Rate 25 mL/min (>89); Lipase 171 U/L (73-393); Magnesium 2.3 mg/dL (1.5-2.5); Phosphorus 3.1 mg/dL (2.5-4.9); Potassium 5.9 meq/L (3.5-5.1); Total Protein 9.4 g/dL (6.4-8.2)
[2017-11-28 05:53] LABS: Glucose,Random 1038 mg/dL (74-106); Sodium 112 meq/L (136-145)
[2017-11-28] MEDS ORDERED: Insulin Regular (For Infusion) 100 UNIT in Sodium Chlor 0.9% Inj 99 ML IV.CONT PRN (06:19)
[2017-11-28] MEDS ORDERED: Dextrose 50% in Water 50 ML Vial IV.PUSH PRN (06:19)
[2017-11-28 07:42] LABS: Bacteria,Urine Many /hpf; Bilirubin,Urine Negative (Negative); Clarity,Urine Cloudy (Clear); Color,Urine Yellow (Yellw/Straw); Glucose,Urine (UA) 500 or Greater mg/dL (Negative); Leukocyte Esterase,Urine Large (Negative); Nitrite,Urine Negative (Negative); Specific Gravity,Urine 1.021 (1.002-1.035); Squamous Epithelial Cell,Urine 10 /hpf (0-5)
[2017-11-28] MEDS ORDERED: Bisacodyl 10 MG Supp RECTAL PRN (08:03)
[2017-11-28] MEDS ORDERED: Enoxaparin Inj 40 MG/0.4 ML Syringe SQ SCH (08:15)
[2017-11-28] MEDS: Enoxaparin Inj 40 MG/0.4 ML Syringe SQ SCH (10:53)
[2017-11-28] MEDS: Senna/Docusate Sodium 8.6/50 MG Tablet PO SCH ×2 (10:53→21:25)
--- NOTE | 2017-11-28 10:54 | P.HP ---
History of Present Illness Primary Care Physician: UNKNOWN Chief Complaint: generalized weakness History of Present Illness: Patient is a 52-year-old female presents emergency department for 4-day history of generalized weakness. Patient states she has been out of her insulin for the past 4 days as well. Also complains of buttock pain more precisely sacrum pain from a decubitus ulcer. Patient fairly somnolent on arrival, denies any chest pain shortness of breath abdominal pain nausea or vomiting. 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 She was also diagnosed with osteomyelitis in this wound she had signed out AGAINST MEDICAL ADVICE at the end of this hospitalization to go take care of a family member. She had been admitted several times over the summer with similar issues of the right heel and signed out AGAINST MEDICAL ADVICE several times as well. States symptoms are severe, and her sacrum, associated with hyperglycemia, context and associated signs symptoms as above. 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 This includes certification that hospital inpatient services are reasonable and necessary and in the case of services not specified as inpatient-only under 42 CFR 419.22(n), that they are appropriately provided as inpatient services in accordance to with the 2-midnight benchmark under 43 CFR 412.3(e) Estimated Total Length of Stay (Days): 3 Plans for Post Hospital Care: Not yet determined Review of Systems All other systems reviewed negative except as stated [facility] - History History Provided By: Patient, Medical Record - Medical History Medical History: Medical History (Last Reviewed 11/28/17 @ 10:53 by Neeta Tena MD) Benign hypertension Diabetes Hepatitis C virus Osteomyelitis - Surgical History Surgical History: Surgical History (Last Updated 11/28/17 @ 11:02 by Neeta Tena MD) Hx of AKA (above knee amputation) Previous section - Family History Family History: Family History (Last Reviewed 11/28/17 @ 10:53 by Neeta Tena MD) Mother EtOH dependence Father EtOH dependence - Tobacco History Second Hand Smoke Exposure: No Smoking Status: Never smoker Tobacco Type: Cigarettes Packs Per Day: 2 Smoking End Date: 6 months ago - Alcohol History How Often Do You Have a Drink Containing Alcohol: Never - Substance Use History Substance History: No History of Abuse - Travel History Recent Travel in the [place] Within the Last 8 Weeks: No Recent Travel Out of the Country Within the Last 8 Weeks: No - Immunization History Tetanus Immunization: Unsure Medications and Allergies Active Medications: Active Medications Acetaminophen (Tylenol) 650 mg PO Q4H PRN PRN Reason: Temp > 100.4 Al Hydroxide/Mg Hydroxide (Milk Of Magnesia Liq) 30 ml PO Q12H PRN PRN Reason: Mild Constipation Bisacodyl (Dulcolax Supp) 10 mg RECTAL DAILY PRN PRN Reason: SEVERE CONSITIPATION Dextrose (D50w Vial) 50 ml IV.PUSH UNSCH PRN PRN Reason: PER HYPOGLYCEMIA PROTOCOL Enoxaparin Sodium (Lovenox Inj) 40 mg SQ Q24H RICARDO Sodium Chloride (Ns Inj) 1,000 mls @ 0 mls/hr IV.SIG BOLUS RICARDO Last Infusion: 11/28/17 06:29 Dose: Infused Insulin Human Regular 100 unit (/ Sodium Chloride) 100 mls @ 0 mls/hr IV.CONT TITRATE PRN; Protocol PRN Reason: See protocol Last Admin: 11/28/17 06:47 Dose: 6 units/hr, 6 mls/hr Sodium Chloride (Ns Inj) 1,000 mls @ 0 mls/hr IV.SIG BOLUS RICARDO Stop: 11/29/17 09:46 Lactulose (Lactulose Liq) 30 ml PO DAILY PRN PRN Reason: SEVERE CONSITIPATION Ondansetron HCl (Zofran Inj) 4 mg IV.PUSH Q6H PRN PRN Reason: NAUSEA OR VOMITING Senna/Docusate Sodium (Belinda-Colace) 1 tab PO BID RICARDO Sennosides (Senokot) 17.2 mg PO Q12H PRN PRN Reason: Moderate Constipation Sodium Chloride (Ns Flush) 2 ml IV.FLUSH PRN PRN PRN Reason: FLUSH AFTER USING IV ACCESS Last Admin: 11/28/17 05:14 Dose: 2 ml Allergies Allergy/AdvReac Type Severity Reaction Status Date / Time No Known Allergies Allergy Unverified 08/02/17 06:11 Home Medications Medication Instructions Recorded Confirmed Type insulin asp prt-insulin aspart 1 sliding scale dose SUBCUT UD 11/28/17 11/28/17 History [Novolog Mix 70-30 U-100 Insuln] insulin detemir U-100 [Levemir 15 unit SUBCUT QPM 11/28/17 11/28/17 History U-100 Insulin] Exam Vital signs: Vital Signs 11/28/17 04:38 11/28/17 04:49 11/28/17 07:23 Temperature 98 F Pulse Rate 104 H 100 H 106 H Respiratory Rate 20 20 16 Blood Pressure 128/75 122/70 112/68 Pulse Oximetry 97 98 100 11/28/17 08:06 Temperature Pulse Rate 104 H Respiratory Rate 16 Blood Pressure 150/52 H Pulse Oximetry 100 Intake & Output 11/27/17 11/28/17 11/28/17 18:59 06:59 18:59 Intake Total 1000 / 1000 Balance 1000 / 1000 Weight 65.771 kg Intake: IV 1000 / 1000 NS Inj 1,000 ML @ Wide Open IV. 1000 / 1000 SIG BOLUS RICARDO Rx#:[id number] Narrative: GENERAL: Skinny 52 yo F, appearing older than the stated age, somnolent. SKIN: Warm and dry. Stage 3/4 sacral decubitus ulcer present on admission. Also multiple pressure wounds on different stages on legs and stump. HEAD: Atraumatic. Normocephalic. EYES: Pupils equal and round. No scleral icterus. No injection or drainage. ENT: No nasal bleeding or discharge. Mucous membranes pink and moist. NECK: Trachea midline. No JVD. CARDIOVASCULAR: Regular rate and rhythm. RESPIRATORY: No accessory muscle use. Clear to auscultation. Breath sounds equal bilaterally. GASTROINTESTINAL: Abdomen soft, non-tender, nondistended. Hepatic and splenic margins not palpable. MUSCULOSKELETAL: Extremities without clubbing, cyanosis, or edema. No obvious deformities. NEUROLOGICAL: Awake and alert. Somnolent. Oriented by name and , knows the name of the president. No obvious cranial nerve deficits. Motor grossly within normal limits. Five out of 5 muscle strength in the arms and legs. Normal speech. PSYCHIATRIC: Depressed mood. Results - Labs CBC & Chem 7: 11/28/17 05:00 11/28/17 11:40 Labs: Laboratory Results - last 24 hr 11/28/17 11/28/17 11/28/17 04:46 05:00 05:00 WBC 10.1 RBC 4.49 Hgb 12.9 Hct 37.5 MCV 83.5 MCH 28.7 MCHC 34.3 RDW 14.2 Plt Count 321 MPV 10.0 Neut % (Auto) 78.6 H Lymph % (Auto) 16.9 [place] % (Auto) 4.0 Eos % (Auto) 0.1 Baso % (Auto) 0.4 Neut # (Auto) 7.9 H Lymph # (Auto) 1.7 [place] # (Auto) 0.4 Eos # (Auto) 0.0 Baso # (Auto) 0.0 WBC Differential . Differential Comment Auto diff final Sodium 112 L* Potassium 5.9 H Chloride 72 L Carbon Dioxide 22.6 Anion Gap 17 H BUN 45 H Creatinine 2.07 H Estimated GFR 25 L POC Glucose Greater than 600 H* Random Glucose 1038 H* Lactic Acid Calcium 8.7 Phosphorus 3.1 Magnesium 2.3 Total Bilirubin 0.6 AST 9 L ALT 13 Alkaline Phosphatase 324 H Total Protein 9.4 H Albumin 2.6 L Lipase 171 Urine Color Urine Clarity Urine pH Ur Specific [place] Urine Protein Urine Glucose (UA) Urine Ketones Urine Occult Blood Urine Nitrate Urine Bilirubin Urine Urobilinogen Ur Leukocyte Esterase Urine RBC Urine WBC Urine WBC Clumps Ur Squamous Epith Cells Urine Bacteria Urine Yeast Micro UA Comment Ur Microscopic Review Urine Culture Comments 11/28/17 11/28/17 11/28/17 05:12 06:43 07:21 WBC RBC Hgb Hct MCV MCH MCHC RDW Plt Count MPV Neut % (Auto) Lymph % (Auto) [place] % (Auto) Eos % (Auto) Baso % (Auto) Neut # (Auto) Lymph # (Auto) [place] # (Auto) Eos # (Auto) Baso # (Auto) WBC Differential Differential Comment Sodium Potassium Chloride Carbon Dioxide Anion Gap BUN Creatinine Estimated GFR POC Glucose Greater than 600 H* Random Glucose Lactic Acid 2.0 Calcium Phosphorus Magnesium Total Bilirubin AST ALT Alkaline Phosphatase Total Protein Albumin Lipase Urine Color Yellow Urine Clarity Cloudy H Urine pH 5.0 Ur Specific [place] 1.021 Urine Protein Negative Urine Glucose (UA) 500 or greater Urine Ketones Trace H Urine Occult Blood Large H Urine Nitrate Negative Urine Bilirubin Negative Urine Urobilinogen Less than 2 Ur Leukocyte Esterase Large H Urine RBC 15 H Urine WBC Urine WBC Clumps Many H Ur Squamous Epith Cells 10 Urine Bacteria Many H Urine Yeast Moderate H Micro UA Comment Culture indicated Ur Microscopic Review Not Reportable Urine Culture Comments Culture indicated 11/28/17 11/28/17 11/28/17 07:45 08:59 09:37 WBC RBC Hgb Hct MCV MCH MCHC RDW Plt Count MPV Neut % (Auto) Lymph % (Auto) [place] % (Auto) Eos % (Auto) Baso % (Auto) Neut # (Auto) Lymph # (Auto) [place] # (Auto) Eos # (Auto) Baso # (Auto) WBC Differential Differential Comment Sodium Potassium Chloride Carbon Dioxide Anion Gap BUN Creatinine Estimated GFR POC Glucose Greater than 600 H* Greater than 600 H* Random Glucose 725 H* D Lactic Acid Calcium Phosphorus Magnesium Total Bilirubin AST ALT Alkaline Phosphatase Total Protein Albumin Lipase Urine Color Urine Clarity Urine pH Ur Specific [place] Urine Protein Urine Glucose (UA) Urine Ketones Urine Occult Blood Urine Nitrate Urine Bilirubin Urine Urobilinogen Ur Leukocyte Esterase Urine RBC Urine WBC Urine WBC Clumps Ur Squamous Epith Cells Urine Bacteria Urine Yeast Micro UA Comment Ur Microscopic Review Urine Culture Comments Caprini VTE Risk Assessment Caprini VTE Risk Assessment: Moderate/High Risk (score >= 2) Caprini Risk Assessment Model: Point Value = 1 Point Value = 2 Point Value = 3 Point Value = 5 Age 41-60 Minor surgery BMI > 25 kg/m2 Swollen legs Varicose veins or History of unexplained or recurrent spontaneous Oral contraceptives or hormone replacement Sepsis (< 1 month) Serious lung disease, including pneumonia (< 1 month) Abnormal pulmonary function Acute myocardial infarction Congestive heart failure (< 1 month) History of inflammatory bowel disease Medical patient at bed rest Age 61-74 Arthroscopic surgery Major open surgery (> 45 min) Laparoscopic surgery (> 45 min) Malignancy Confined to bed (> 72 hours) Immobilizing plaster cast Central venous access Age >= 75 History of VTE Family history of VTE Factor V Leiden Prothrombin [id number] Lupus anticoagulant Anticardiolipin antibodies Elevated serum homocysteine Heparin-induced thrombocytopenia Other congenital or acquired thrombophilia Stroke (< 1 month) Elective arthroplasty Hip, pelvis, or leg fracture Acute spinal cord injury (< 1 month) Prophylaxis Regimen: Total Risk Factor Score Risk Level Prophylaxis Regimen 0-1 Low Early ambulation 2 Moderate Order ONE of the following: *Sequential Compression Device (SCD) *Heparin 5000 units SQ BID 3-4 Higher Order ONE of the following medications: *Heparin 5000 units SQ TID *Enoxaparin/Lovenox 40 mg SQ daily (WT < 150 kg, CrCl > 30 mL/min) *Enoxaparin/Lovenox 30 mg SQ daily (WT < 150 kg, CrCl > 10-29 mL/min) *Enoxaparin/Lovenox 30 mg SQ BID (WT < 150 kg, CrCl > 30 mL/min) AND/OR *Sequential Compression Device (SCD) 5 or more Highest Order ONE of the following medications: *Heparin 5000 units SQ TID (Preferred with Epidurals) *Enoxaparin/Lovenox 40 mg SQ daily (WT < 150 kg, CrCl > 30 mL/min) *Enoxaparin/Lovenox 30 mg SQ daily (WT < 150 kg, CrCl > 10-29 mL/min) *Enoxaparin/Lovenox 30 mg SQ BID (WT < 150 kg, CrCl > 30 mL/min) AND *Sequential Compression Device (SCD) Assessment and Plan - Assessment (1) Cellulitis of foot, right Code(s): L03.115 - Cellulitis of right lower limb Status: Acute (2) Hyponatremia Code(s): E87.1 - Hypo-osmolality and hyponatremia Status: Acute (3) Hypokalemia Code(s): E87.6 - Hypokalemia Status: Acute (4) 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 Uncontrolled Diabetes mellitus with recent HGB A1c of 13. Pseudohyponatremia as BS is 1037 on admission. Failure to thrive Acute metabolic disturbance MARIO Hypotension Depression Poss UTI Sacral decubitus wound present on admission stage 3/4, and multiple presure wounds/ ulcers on various stages on legs and stump. 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 Give bolus IVF with NS, continue NS IVF Monitor VS closely Monitor BMP frequently. Monitor on telemetry Start Rocephin IV for poss UTI. Urine cx, blood cx are pending. Patient with previous osteomyelitis, s/p recent AKA. Patient left AA on last admission Check prealbumin as patient with protein calorie malnutrition Consult psych for eval as patient is depressed DVTppx scd/teds. lovenox Discussed Condition With: patient, nurse, ER physician Dr Valentin
[2017-11-28 12:33] LABS: Calcium 8.3 mg/dL (8.5-10.1); Carbon Dioxide 21.1 meq/L (21.0-32.0); Potassium 3.4 meq/L (3.5-5.1)
--- NOTE | 2017-11-28 18:55 | P.PNWCN ---
Wound Care Nurse Consult Description: Received consult for wound management of sacral and stump areas Communicated with: VISHAL George [facility] and Doctor Tena Recommendation: Wound to sacrum 1.Please cleanse wound to sacral area with wound cleanser and pat dry. Apply calazime skin protectant paste to periwound circumferentially and then apply skin barrier film to intact skin to be in contact with adhesive. Apply maxorb II packed loosely to wound bed and cover with bordered gauze. Change every other day or as needed if saturated or dislodged. 2. Please turn patient every 2 hours from side to side. Please limit time spent on back to meals and P.T. 3. Please obtain low airloss bed/ mattress for patient from environmental([employer] ) Deep tissue injury to L hip Apply skin barrier film BID and to L hip DTI and leave open to air. Wound to R knee stump Cleanse wound to R knee stump with wound cleanser and pat dry. Apply hydrogel to wound bed and cover with bordered bordered gauze. change dressing every other day or PRN if saturated or dislodged. Wounds to L foot first 4 toes. 1.Consult podiatry for L foot eschar on toes 2. Apply povidone iodine to L foot eschar on toes BID until seen by podiatry Wound/Pressure Injury - Patient Status Premedicated for Pain Prior to Dressing Change: No - Wound Sacrum Wound Staging: Stage IV Wound Assessment: Admission Wound Type: Pressure Injury Is This a Chronic Wound: Yes Requested from Provider a Wound Care Consult: Yes Length (cm): 3.9 (cm) Width (cm): 1 (cm) Depth (cm): 1.1 (cm) Wound Bed Appearance: Red Wound Bed Appearance: Wound presents with 100% red granulation tissue that is visible. Bone is not visible, but palpated indicating stage IV pressure injury. Surrounding Tissue Appearance: Ralls Surrounding Tissue Temperature: Cool Drainage Description: Serosanguinous Drainage Amount: Moderate Drainage Odor: No Odor Dressing Status: Changed Cleansing Solution: Saline Wound Packing Type: Alginate (Maxorb II) Cover Dressing: bordered gauze Wound Dressing Change Date: 11/28/17 Left Hip Wound Staging: DTI Wound Type: Pressure Injury Length (cm): 7 (~7cm) Width (cm): 7 (~7cm) Drainage Amount: None Right knee stump wound Wound Assessment: Ongoing Wound Type: Traumatic Wound Is This a Chronic Wound: No Requested from Provider a Wound Care Consult: Yes Length (cm): 1.1 (cm) Width (cm): 1.1 (cm) Depth (cm): 0.2 (cm) Wound Bed Appearance: Ralls Wound Bed Appearance: 100% dry pink tissue Surrounding Tissue Appearance: Ralls Surrounding Tissue Temperature: Cool Drainage Amount: None Drainage Odor: No Odor Dressing Status: Open to Air Cleansing Solution: Saline Left Great Toe Wound Type: Traumatic Wound Is This a Chronic Wound: No Requested from Provider a Wound Care Consult: Yes (Patient seen by wound care today) Length (cm): 1 (~1cm) Width (cm): 1 (~1cm) Depth (cm): 0 (eschar) Wound Bed Appearance: Necrotic Wound Bed Appearance: !00% dry black eschar Surrounding Tissue Appearance: Ralls Surrounding Tissue Temperature: Cool Drainage Amount: None Dressing Status: Open to Air Left Toe - 2nd Digit Wound Type: Traumatic Wound Is This a Chronic Wound: No Requested from Provider a Wound Care Consult: Yes (Wound care saw patient) Length (cm): 3 (~3cm) Width (cm): 1 (~1cm) Depth (cm): 0 (eschar) Wound Bed Appearance: 100% dry brown eschar Surrounding Tissue Appearance: Erythema Surrounding Tissue Temperature: Warm Drainage Amount: None Dressing Status: Open to Air Left Toe - 3rd Digit Wound Type: Traumatic Wound Is This a Chronic Wound: No Requested from Provider a Wound Care Consult: Yes (Wound care saw patient today) Length (cm): 2 (~2cm) Width (cm): 1 (~1cm) Depth (cm): 0 (eschar) Wound Bed Appearance: Necrotic, Ralls Wound Bed Appearance: Wound presents with ~60% dry brown eschar that is loosely adherent and exposing ~40% pink tissue Surrounding Tissue Appearance: Erythema Surrounding Tissue Temperature: Warm Drainage Description: Serosanguinous Drainage Amount: Scant Drainage Odor: No Odor Dressing Status: Open to Air Left Toe - 4th Digit Wound Assessment: Admission Wound Type: Traumatic Wound Is This a Chronic Wound: No Requested from Provider a Wound Care Consult: Yes (Wound care saw patient today) Length (cm): 1 (~1cm) Width (cm): 1 (~1cm) Depth (cm): 0 (eschar) Wound Bed Appearance: Necrotic Wound Bed Appearance: 100% dry brown eschar Surrounding Tissue Appearance: Erythema Surrounding Tissue Temperature: Warm Drainage Amount: None Drainage Odor: No Odor - Additional Information Patient seen on 5th floor [facility] for wound management to sacral and stump areas. Patient was assessed with the assistance of television writer and [facility] Barbara RN. Patient is already positioned off bottom toward the L side. Patient was positioned further toward the L side to reveal sacral wound and bilateral buttocks covered with skin protectant paste. Wound was cleansed with normal saline. Remedy barrier cloths were used to gently remove skin protectant paste. Wound measurements and descriptions are noted above. Wound presents as clean with red granulation tissue. Periwound is noted with intact blanchable erythema. Wound was cleansed with normal saline and patted dry. Applied Maxorb II packed loosely to wound bed. Applied skin barrier film to periwound, before covering wound with bordered gauze. Attention was then turned to R stump wound that presents as dry 100% pink tissue. No active drainage is noted. Wound was cleansed with normal saline and patted dry. Wound was left open to air until hydrogel can be obtained. Patient was then turned off bottom toward the R side to reveal non blanchable purple discoloration to intact skin on L hip, indicating deep tissue injury. Applied skin barrier film to L hip DTI and left it open to air. Personal Insurance Advisor then assessed the first four toes to L foot. All four toes had areas of eschar, full wound descriptions with measurements are noted above. Toes were left open to air. Recommended podiatry.
[2017-11-28] MEDS: Insulin Detemir Inj 1,000 UNIT/10 ML Vial SQ SCH (21:24)
[2017-11-28] MEDS: Insulin NovoLOG Aspart Correctional Sugar Inj SQ SCH (21:24)
[2017-11-29] MEDS ORDERED: Sod Chloride 0.9% Inj 1,000 ML IV.SIG SCH (00:45)
[2017-11-29 06:39] LABS: Baso % (Auto) 0.3 % (0.0-2.0); Eos % (Auto) 0.2 % (0.0-4.0); Hematocrit 30.9 % (35.0-46.0); Lymph # (Auto) 2.6 th/mm3 (1.0-4.8); Lymph % (Auto) 23.7 % (9.0-44.0); Mean Corpuscular HGB Conc 35.6 % (32.0-36.0); Mean Corpuscular Hemoglobin 28.2 pg (27.0-34.0); Mean Corpuscular Volume 79.3 fL (80.0-100.0); Mean Platelet Volume 9.4 fL (7.0-11.0); Mono # (Auto) 0.5 th/mm3 (0.0-0.9); Mono % (Auto) 4.7 % (0.0-8.0); Neut # (Auto) 7.9 th/mm3 (1.8-7.7); Neut % (Auto) 71.1 % (16.0-70.0); Platelet Count 259 th/mm3 (150-450); Red Cell Distribution Width 14.5 % (11.6-17.2); White Blood Count 11.1 th/mm3 (4.0-11.0)
[2017-11-29 07:03] LABS: Anion Gap 8 meq/L (5-15); Aspartate Aminotransferase 19 U/L (15-37); Blood Urea Nitrogen 30 mg/dL (7-18); Calcium 8.1 mg/dL (8.5-10.1); Carbon Dioxide 24.1 meq/L (21.0-32.0); Chloride 101 meq/L (98-107); Glomerular Filtration Rate 48 mL/min (>89); Potassium 5.2 meq/L (3.5-5.1); Sodium 133 meq/L (136-145)
[2017-11-29 07:07] LABS: Alanine Aminotransferase 14 U/L (10-53); Albumin 2.1 g/dL (3.4-5.0); Alkaline Phosphatase 267 U/L (45-117); Glucose,Random 190 mg/dL (74-106); Total Protein 7.7 g/dL (6.4-8.2)
[2017-11-29] MEDS: Insulin Detemir Inj 1,000 UNIT/10 ML Vial SQ SCH ×2 (08:11→21:00)
[2017-11-29] MEDS: Acetaminophen 325 MG Tablet PO PRN ×2 (08:11→21:00)
[2017-11-29] MEDS: Insulin NovoLOG Aspart Correctional Sugar Inj SQ SCH ×4 (08:11→21:00)
[2017-11-29] MEDS: Enoxaparin Inj 40 MG/0.4 ML Syringe SQ SCH (08:12)
[2017-11-29] MEDS: Senna/Docusate Sodium 8.6/50 MG Tablet PO SCH ×2 (08:12→21:00)
--- NOTE | 2017-11-29 12:16 | P.CONPSY ---
Provisional Diagnosis Admission Date: November 28, 2017 07:31 [place].: 1. Adjustment disorder with depressed mood Rule out major depressive episode [place] II.: Deferred History of Present Illness Service: Psychiatry Consult date: 11/29/17 Requesting Physician: Neeta Tena Reason for Consult: Depression Primary Care Provider: UNKNOWN Chief Complaint: generalized weakness History of Present Illness: Ms. Middleton is a 52-year-old female with a reported history of depression on Cymbalta who was admitted [place] [facility] [place] hyperglycemia and MARIO. She has medical comorbidities of DM, HTN and Hepatitis C and also recently underwent leg amputation for poorly healing diabetic ulcer. Reviewing the electronic medical record, I see no previous psychiatric contact within our system. Patient seen and examined. Chart reviewed. On my examination today, the patient reports that she feels overwhelmed and "callahan" secondary to leg pain which she has reportedly had since August. She says her appetite is somewhat chronically poor, but she does not report any issues with sleep. She does complain of some comorbid anxiety. She denies any suicidal ideation, intent or plan and says that she wants to live for her . She also has life affirming restoration beliefs and says that God would not forgive her if she attempted suicide. Nonetheless, she does admit to some occasional passive thoughts of . No hypomanic or manic symptoms. Denies audiovisual hallucinations. No delusional material. Sensorium is clear, and I can appreciate no signs of delirium. Remainder of the psychiatric ROS is negative. Past psychiatric history: The patient reports a history of depression. She reports that she has been on Cymbalta at a dose of 20 mg daily for about 3 years but has not seen much symptomatic benefit from it. She is not presently under the care of a psychiatrist and her medication is reportedly being managed by her primary care doctor. She denies a history of psychiatric admissions or suicide attempts. Family history: The patient denies any family history of serious mental illness or suicide. Chemical dependency history: The patient denies any abuse of drugs or alcohol. Social history: The patient is from [place]. She resides with her and 2 pet dogs. 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 She is previously and has 2 daughters from that relationship but is estranged from them. She has a grade 9 education. 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 She denies any history. Denies any legal history. Denies any access to guns or firearms. She was raised a Tenriism. She denies any history of abuse or mistreatment. Review of Systems All other systems reviewed negative except as stated in HPI [facility] - History History Provided By: Patient, Medical Record - Medical History Medical History: Medical History (Last Reviewed 11/28/17 @ 11:13 by Carlyn Ennis) Benign hypertension Diabetes Hepatitis C virus Osteomyelitis - Surgical History Surgical History: Surgical History (Last Reviewed 11/28/17 @ 11:13 by Carlyn Ennis) Hx of AKA (above knee amputation) Previous section - Family History Family History: Family History (Last Reviewed 11/28/17 @ 11:13 by Carlyn Ennis) Mother EtOH dependence Father EtOH dependence - Tobacco History Second Hand Smoke Exposure: No Smoking Status: Never smoker Tobacco Type: Cigarettes Packs Per Day: 2 Smoking End Date: 6 months ago - Alcohol History How Often Do You Have a Drink Containing Alcohol: Never - Substance Use History Substance History: No History of Abuse - Travel History Recent Travel in the [place] Within the Last 8 Weeks: No Recent Travel Out of the Country Within the Last 8 Weeks: No - Immunization History Tetanus Immunization: Unsure Medications and Allergies Active Medications: Active Medications Acetaminophen (Tylenol) 650 mg PO Q4H PRN PRN Reason: Temp > 100.4 Last Admin: 11/29/17 08:11 Dose: 650 mg Hydrocodone Bitart/Acetaminophen ([place] 5/325) 1 tab PO Q6H PRN PRN Reason: pain 2-10 Last Admin: 11/29/17 04:18 Dose: 1 tab Al Hydroxide/Mg Hydroxide (Milk Of Magnmaria dolores Liq) 30 ml PO Q12H PRN PRN Reason: Mild Constipation Bisacodyl (Dulcolax Supp) 10 mg RECTAL DAILY PRN PRN Reason: SEVERE CONSITIPATION Dextrose (D50w Vial) 50 ml IV.PUSH UNSCH PRN PRN Reason: PER HYPOGLYCEMIA PROTOCOL Enoxaparin Sodium (Lovenox Inj) 40 mg SQ Q24H [facility] Last Admin: 11/29/17 08:12 Dose: 40 mg Glucagon (Glucagon Inj) 1 mg OTHER PRN PRN PRN Reason: for Hypoglycemia Protocol Sodium Chloride (Ns Inj) 1,000 mls @ 0 mls/hr IV.SIG BOLUS RICARDO Last Infusion: 11/28/17 06:29 Dose: Infused Ceftriaxone Sodium 1,000 mg/ (Sodium Chloride) 100 mls @ 200 mls/hr IV.SIG Q24H RICARDO Last Infusion: 11/28/17 12:00 Dose: Infused Sodium Chloride (Ns Inj) 1,000 mls @ 0 mls/hr IV.SIG BOLUS RICARDO Insulin Aspart (Novolog Insulin Correctional Sugar Inj) 0 unit SQ ACHS RICARDO; Protocol Last Admin: 11/29/17 08:11 Dose: 3 unit Insulin Detemir (Levemir Inj) 7 unit SQ BID RICARDO Last Admin: 11/29/17 08:11 Dose: 7 unit Lactulose (Lactulose Liq) 30 ml PO DAILY PRN PRN Reason: SEVERE CONSITIPATION Ondansetron HCl (Zofran Inj) 4 mg IV.PUSH Q6H PRN PRN Reason: NAUSEA OR VOMITING Senna/Docusate Sodium (Belinda-Colace) 1 tab PO BID [facility] Last Admin: 11/29/17 08:12 Dose: 1 tab Sennosides (Senokot) 17.2 mg PO Q12H PRN PRN Reason: Moderate Constipation Sodium Chloride (Ns Flush) 2 ml IV.FLUSH PRN PRN PRN Reason: FLUSH AFTER USING IV ACCESS Last Admin: 11/28/17 05:14 Dose: 2 ml Allergies Allergy/AdvReac Type Severity Reaction Status Date / Time No Known Allergies Allergy Unverified 08/02/17 06:11 Home Medications Medication Instructions Recorded Confirmed Type insulin asp prt-insulin aspart 1 sliding scale dose SUBCUT UD 11/28/17 11/28/17 History [Novolog Mix 70-30 U-100 Insuln] insulin detemir U-100 [Levemir 15 unit SUBCUT QPM 11/28/17 11/28/17 History U-100 Insulin] Exam Vital signs: Vital Signs 11/28/17 16:00 11/28/17 16:01 11/28/17 20:00 Temperature 98.2 F 97.7 F Pulse Rate 94 H 94 H 96 H Respiratory Rate 31 H 24 15 Blood Pressure 110/62 110/62 92/56 L Pulse Oximetry 100 100 99 11/28/17 22:32 11/29/17 00:00 11/29/17 04:00 Temperature 97.9 F 97.4 F L Pulse Rate 92 H 97 H Respiratory Rate 22 16 15 Blood Pressure 78/49 L 121/69 Pulse Oximetry 100 99 11/29/17 05:49 11/29/17 07:00 11/29/17 08:00 Temperature 97.8 F Pulse Rate 93 H 96 H Respiratory Rate 20 15 18 Blood Pressure Pulse Oximetry 97 100 11/29/17 09:00 11/29/17 09:43 11/29/17 10:00 Temperature Pulse Rate 96 H 117 H 107 H Respiratory Rate 16 20 Blood Pressure 94/68 L Pulse Oximetry 100 93 L 100 11/29/17 11:00 11/29/17 12:00 Temperature Pulse Rate 102 H 99 H Respiratory Rate 14 19 Blood Pressure Pulse Oximetry 100 100 Intake & Output 11/28/17 11/29/17 11/29/17 18:59 06:59 18:59 Intake Total 529 / 529 450 / 450 Balance 529 / 529 450 / 450 Weight 62 kg Intake: IV 129 / 129 NovoLIN R (IV Infusion) 100 29 / 29 UNIT In NS Inj 99 ML @ Per Protocol IV.CONT TITRATE PRN Rx #:[id number] Rocephin Inj 1,000 MG In NS Inj 100 / 100 100 ML @ 200 mls/hr IV.SIG Q24H RICARDO Rx#:[id number] Oral 400 / 400 450 / 450 Other: # Voids 2 2 Date of Last Bowel Movement 11/28/17 11/28/17 11/29/17 # Bowel Movements 2 1 Narrative: Physical examination completed by primary team. On my examination today, I find a thin, female in mild distress due to pain complaints. She is ill-appearing. No motor abnormalities are noted. Labs and vital signs reviewed : Laboratory Tests 11/29/17 11/29/17 06:05 06:05 WBC 11.1 H Hgb 11.0 L Plt Count 259 Sodium 133 L Potassium 5.2 H D Chloride 101 Carbon Dioxide 24.1 Estimated GFR 48 L Random Glucose 190 H AST 19 ALT 14 Alkaline Phosphatase 267 H Urine culture preliminarily growing out gram-negative rods. TSH was wnl in September. Mental Status Examination Appearance: Disheveled Consciousness: Alert Orientation: x4 Motor Activity: Other (No motor abnormalities noted) Speech: Unremarkable Language: Adequate Fund of Knowledge: Adequate Attention and Concentration: Adequate Memory: Unremarkable Mood: Other (Dysphoric) Affect: Other (Restricted) Thought Process & Associations: Intact Thought Content: Appropriate Hallucination Type: None Delusion Type: None Suicidal Ideation: No Suicidal Plan: No Suicidal Intention: No Homicidal Ideation: No Homicidal Plan: No Homicidal Intention: No Insight: Adequate Judgment: Adequate Assessment and Plan - Assessment (1) Adjustment disorder with depressed mood Code(s): F43.21 - Adjustment disorder with depressed mood Status: Acute - Plan Plan: 52-year-old female with psychiatric history as detailed above who is presently admitted to the medical floor for management of hyperglycemia and MARIO. Psychiatry is consulted for management of depression. On my examination today, the patient elaborates depressive symptoms as detailed above, which she links to leg pain beginning in August. She denies any suicidal ideation. There is no evidence of delirium presently. Patient is on a small dose of Cymbalta, which could likely be titrated to help manage her depressive symptoms and may also provide some benefit with regard to the neuropathic component of her pain. I would recommend titrating her Cymbalta to 30 mg daily with plans for ongoing slow titration, especially in light of renal impairment. Dose could next be increased to 40mg daily in 3-5 days if this medication is well tolerated. I would also recommend referring the patient for outpatient psychiatric services including psychotherapeutic services. Patient also might benefit from home nursing services including home psychiatric nursing services if she has this benefit to monitor symptoms and response to treatment in a less restrictive setting. I have counseled the patient regarding warning signs for need to return to the psychiatric emergency room as part of a general safety plan. Thank you very much for this consultation. Please call or page with questions. I will ask Dr. Talley to follow up after the weekend. Justification for Continued Inpatient Stay: Per primary team.
--- NOTE | 2017-11-29 14:30 | P.PN ---
Subjective Interval history: The patient is in bed she is more awake and alert. She is complaining of back pain and also phantom leg pain. She is none nauseated and did not vomiting able to eat. No chest pain shortness of breath. No palpitations. No fevers. Seen also by psychiatry doctor. Physical Exam Vital signs: Vital Signs 11/28/17 16:00 11/28/17 16:01 11/28/17 20:00 Temperature 98.2 F 97.7 F Pulse Rate 94 H 94 H 96 H Respiratory Rate 31 H 24 15 Blood Pressure 110/62 110/62 92/56 L Pulse Oximetry 100 100 99 11/28/17 22:32 11/29/17 00:00 11/29/17 04:00 Temperature 97.9 F 97.4 F L Pulse Rate 92 H 97 H Respiratory Rate 22 16 15 Blood Pressure 78/49 L 121/69 Pulse Oximetry 100 99 11/29/17 05:49 11/29/17 07:00 11/29/17 08:00 Temperature 97.8 F Pulse Rate 93 H 96 H Respiratory Rate 20 15 18 Blood Pressure Pulse Oximetry 97 100 11/29/17 09:00 11/29/17 09:43 11/29/17 10:00 Temperature Pulse Rate 96 H 117 H 107 H Respiratory Rate 16 20 Blood Pressure 94/68 L Pulse Oximetry 100 93 L 100 11/29/17 11:00 11/29/17 12:00 Temperature Pulse Rate 102 H 99 H Respiratory Rate 14 19 Blood Pressure Pulse Oximetry 100 100 Intake & Output 11/28/17 11/29/17 11/29/17 18:59 06:59 18:59 Intake Total 529 / 529 450 / 450 Balance 529 / 529 450 / 450 Weight 62 kg Intake: IV 129 / 129 NovoLIN R (IV Infusion) 100 29 / 29 UNIT In NS Inj 99 ML @ Per Protocol IV.CONT TITRATE PRN Rx #:[id number] Rocephin Inj 1,000 MG In NS Inj 100 / 100 100 ML @ 200 mls/hr IV.SIG Q24H RICARDO Rx#:[id number] Oral 400 / 400 450 / 450 Other: # Voids 2 2 Date of Last Bowel Movement 11/28/17 11/28/17 11/29/17 # Bowel Movements 2 1 Narrative: GENERAL: Skinny 52 yo F, appearing older than the stated age, more awake and alert. Does not appear in distress at this time. SKIN: Warm and dry. Stage 3/4 sacral decubitus ulcer present on admission. Also multiple pressure wounds on different stages on legs and stump. With eschars on toes on the left side. HEAD: Atraumatic. Normocephalic. EYES: Pupils equal and round. No scleral icterus. No injection or drainage. ENT: No nasal bleeding or discharge. Mucous membranes pink and moist. NECK: Trachea midline. No JVD. CARDIOVASCULAR: Regular rate and rhythm. RESPIRATORY: No accessory muscle use. Clear to auscultation. Breath sounds equal bilaterally. GASTROINTESTINAL: Abdomen soft, non-tender, nondistended. Hepatic and splenic margins not palpable. MUSCULOSKELETAL: Extremities without clubbing, cyanosis, or edema. No obvious deformities. NEUROLOGICAL: Awake and alert. Somnolent. Oriented by name and , knows the name of the president. No obvious cranial nerve deficits. Motor grossly within normal limits. Five out of 5 muscle strength in the arms and legs. Normal speech. PSYCHIATRIC: Depressed mood. Results - Labs CBC & Chem 7: 11/29/17 06:05 11/29/17 06:05 Laboratory Results - last 24 hr 11/28/17 11/28/17 11/28/17 07:21 10:30 15:03 WBC RBC Hgb Hct MCV MCH MCHC RDW Plt Count MPV Neut % (Auto) Lymph % (Auto) [place] % (Auto) Eos % (Auto) Baso % (Auto) Neut # (Auto) Lymph # (Auto) [place] # (Auto) Eos # (Auto) Baso # (Auto) WBC Differential Differential Comment Sodium Potassium Chloride Carbon Dioxide Anion Gap BUN Creatinine Estimated GFR POC Glucose 138 H Random Glucose Calcium Total Bilirubin AST ALT Alkaline Phosphatase Total Protein Albumin Urine Color Yellow Urine Clarity Cloudy H Urine pH 5.0 Ur Specific [place] 1.021 Urine Protein Negative Urine Glucose (UA) 500 or greater Urine Ketones Trace H Urine Occult Blood Large H Urine Nitrate Negative Urine Bilirubin Negative Urine Urobilinogen Less than 2 Ur Leukocyte Esterase Large H Urine RBC 15 H Urine WBC Urine WBC Clumps Many H Ur Squamous Epith Cells 10 Urine Bacteria Many H Urine Yeast Moderate H Micro UA Comment Culture indicated Urine Culture Comments Culture indicated Nasal Screen MRSA (PCR) Mrsa detected 11/28/17 11/28/17 11/28/17 16:01 17:03 18:00 WBC RBC Hgb Hct MCV MCH MCHC RDW Plt Count MPV Neut % (Auto) Lymph % (Auto) [place] % (Auto) Eos % (Auto) Baso % (Auto) Neut # (Auto) Lymph # (Auto) [place] # (Auto) Eos # (Auto) Baso # (Auto) WBC Differential Differential Comment Sodium Potassium Chloride Carbon Dioxide Anion Gap BUN Creatinine Estimated GFR POC Glucose 144 H 162 H 144 H Random Glucose Calcium Total Bilirubin AST ALT Alkaline Phosphatase Total Protein Albumin Urine Color Urine Clarity Urine pH Ur Specific [place] Urine Protein Urine Glucose (UA) Urine Ketones Urine Occult Blood Urine Nitrate Urine Bilirubin Urine Urobilinogen Ur Leukocyte Esterase Urine RBC Urine WBC Urine WBC Clumps Ur Squamous Epith Cells Urine Bacteria Urine Yeast Micro UA Comment Urine Culture Comments Nasal Screen MRSA (PCR) 11/28/17 11/28/17 11/29/17 18:49 20:39 00:42 WBC RBC Hgb Hct MCV MCH MCHC RDW Plt Count MPV Neut % (Auto) Lymph % (Auto) [place] % (Auto) Eos % (Auto) Baso % (Auto) Neut # (Auto) Lymph # (Auto) [place] # (Auto) Eos # (Auto) Baso # (Auto) WBC Differential Differential Comment Sodium Potassium Chloride Carbon Dioxide Anion Gap BUN Creatinine Estimated GFR POC Glucose 150 H 140 H 205 H Random Glucose Calcium Total Bilirubin AST ALT Alkaline Phosphatase Total Protein Albumin Urine Color Urine Clarity Urine pH Ur Specific [place] Urine Protein Urine Glucose (UA) Urine Ketones Urine Occult Blood Urine Nitrate Urine Bilirubin Urine Urobilinogen Ur Leukocyte Esterase Urine RBC Urine WBC Urine WBC Clumps Ur Squamous Epith Cells Urine Bacteria Urine Yeast Micro UA Comment Urine Culture Comments Nasal Screen MRSA (PCR) 11/29/17 11/29/17 11/29/17 06:05 06:05 08:11 WBC 11.1 H RBC 3.90 L Hgb 11.0 L Hct 30.9 L MCV 79.3 L D MCH 28.2 MCHC 35.6 RDW 14.5 Plt Count 259 MPV 9.4 Neut % (Auto) 71.1 H Lymph % (Auto) 23.7 [place] % (Auto) 4.7 Eos % (Auto) 0.2 Baso % (Auto) 0.3 Neut # (Auto) 7.9 H Lymph # (Auto) 2.6 [place] # (Auto) 0.5 Eos # (Auto) 0.0 Baso # (Auto) 0.0 WBC Differential . Differential Comment Auto diff final Sodium 133 L Potassium 5.2 H D Chloride 101 Carbon Dioxide 24.1 Anion Gap 8 BUN 30 H Creatinine 1.18 H Estimated GFR 48 L POC Glucose 242 H Random Glucose 190 H Calcium 8.1 L Total Bilirubin 0.3 AST 19 ALT 14 Alkaline Phosphatase 267 H Total Protein 7.7 D Albumin 2.1 L Urine Color Urine Clarity Urine pH Ur Specific [place] Urine Protein Urine Glucose (UA) Urine Ketones Urine Occult Blood Urine Nitrate Urine Bilirubin Urine Urobilinogen Ur Leukocyte Esterase Urine RBC Urine WBC Urine WBC Clumps Ur Squamous Epith Cells Urine Bacteria Urine Yeast Micro UA Comment Urine Culture Comments Nasal Screen MRSA (PCR) 11/29/17 12:50 WBC RBC Hgb Hct MCV MCH MCHC RDW Plt Count MPV Neut % (Auto) Lymph % (Auto) [place] % (Auto) Eos % (Auto) Baso % (Auto) Neut # (Auto) Lymph # (Auto) [place] # (Auto) Eos # (Auto) Baso # (Auto) WBC Differential Differential Comment Sodium Potassium Chloride Carbon Dioxide Anion Gap BUN Creatinine Estimated GFR POC Glucose 254 H Random Glucose Calcium Total Bilirubin AST ALT Alkaline Phosphatase Total Protein Albumin Urine Color Urine Clarity Urine pH Ur Specific [place] Urine Protein Urine Glucose (UA) Urine Ketones Urine Occult Blood Urine Nitrate Urine Bilirubin Urine Urobilinogen Ur Leukocyte Esterase Urine RBC Urine WBC Urine WBC Clumps Ur Squamous Epith Cells Urine Bacteria Urine Yeast Micro UA Comment Urine Culture Comments Nasal Screen MRSA (PCR) Microbiology 11/28/17 07:21 Clean Catch Urine Urine Culture - Preliminary gram negative rods 11/28/17 05:12 Blood - Peripheral Aerobic Blood Culture - Preliminary No growth in 1 day 11/28/17 05:12 Blood - Peripheral Anaerobic Blood Culture - Preliminary No growth in 1 day 11/28/17 05:10 Blood - Peripheral Aerobic Blood Culture - Preliminary No growth in 1 day 11/28/17 05:10 Blood - Peripheral Anaerobic Blood Culture - Preliminary No growth in 1 day Assessment and Plan - Assessment (1) Cellulitis of foot, right Code(s): L03.115 - Cellulitis of right lower limb Status: Acute (2) Hyponatremia Code(s): E87.1 - Hypo-osmolality and hyponatremia Status: Acute (3) Hypokalemia Code(s): E87.6 - Hypokalemia Status: Acute (4) 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 Uncontrolled Diabetes mellitus with recent HGB A1c of 13. Pseudohyponatremia as BS is 1037 on admission. Failure to thrive Acute metabolic disturbance MARIO Hypotension Depression Poss UTI Sacral decubitus wound present on admission stage 3/4, and multiple presure wounds/ ulcers on various stages on legs and stump. Consult wound care for eval and management. Appreciate wound care recommendations. Also podiatry consulted for eschars left leg and toes on the left lower leg. 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 Received 2L bolus IVF with NS, continue NS IVF monitor closely labs. Monitor VS closely Monitor BMP frequently. Monitor on telemetry Start Rocephin IV for poss UTI. Urine cx, blood cx are pending. Patient with previous osteomyelitis, s/p recent AKA. Patient left AA on last admission Severe protein calorie malnutrition prealbumin of 9, low albumin as well. Consult dietitian for dietary supplement. Consult psych for eval as patient is depressed. Appreciate input. DVTppx scd/teds. lovenox Discussed with the patient, nurse.
--- NOTE | 2017-11-29 17:41 | P.CON ---
History of Present Illness Service: Foot and ankle surgery/podiatry Consult date: 11/29/17 Reason for Consult: Left foot dorsal digital ulceration Primary Care Provider: UNKNOWN Chief Complaint: generalized weakness History of Present Illness: Podiatry consulted for this 52-year-old female presented emergency for generalized weakness. Patient states she is out of her insulin for the past 4 days and was concerned for buttocks pain secondary to decubitus ulcer. 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 She reports dorsal digital ulcerations to 2, 3, 4 of the left foot. She denies any nausea vomiting fevers or chills at this time. Review of Systems All other systems reviewed negative except as stated in HPI Constitutional: Denies body ache(s), Denies chills, Denies fever(s), Denies headache(s), Denies night sweats, Denies weakness PMFSH - History History Provided By: Patient, Medical Record - Medical History Medical History: Medical History (Last Reviewed 11/29/17 @ 17:44 by Kimberly York DPM) Benign hypertension Diabetes Hepatitis C virus Osteomyelitis - Surgical History Surgical History: Surgical History (Last Reviewed 11/29/17 @ 17:44 by Kimberly York DPM) Hx of AKA (above knee amputation) Previous section - Family History Family History: Family History (Last Reviewed 11/29/17 @ 17:44 by Kimberly York DPM) Mother EtOH dependence Father EtOH dependence - Tobacco History Second Hand Smoke Exposure: No Smoking Status: Never smoker Tobacco Type: Cigarettes Packs Per Day: 2 Smoking End Date: 6 months ago - Alcohol History How Often Do You Have a Drink Containing Alcohol: Never - Substance Use History Substance History: No History of Abuse - Travel History Recent Travel in the [place] Within the Last 8 Weeks: No Recent Travel Out of the Country Within the Last 8 Weeks: No - Immunization History Tetanus Immunization: Unsure Medications and Allergies Active Medications: Active Medications Acetaminophen (Tylenol) 650 mg PO Q4H PRN PRN Reason: Temp > 100.4 Last Admin: 11/29/17 08:11 Dose: 650 mg Hydrocodone Bitart/Acetaminophen ([place] 5/325) 1 tab PO Q6H PRN PRN Reason: pain 2-10 Last Admin: 11/29/17 12:51 Dose: 1 tab Al Hydroxide/Mg Hydroxide (Milk Of Magnesia Liq) 30 ml PO Q12H PRN PRN Reason: Mild Constipation Bisacodyl (Dulcolax Supp) 10 mg RECTAL DAILY PRN PRN Reason: SEVERE CONSITIPATION Dextrose (D50w Vial) 50 ml IV.PUSH UNSCH PRN PRN Reason: PER HYPOGLYCEMIA PROTOCOL Duloxetine HCl (Cymbalta) 30 mg PO DAILY [facility] Enoxaparin Sodium (Lovenox Inj) 40 mg SQ Q24H [facility] Last Admin: 11/29/17 08:12 Dose: 40 mg Glucagon (Glucagon Inj) 1 mg OTHER PRN PRN PRN Reason: for Hypoglycemia Protocol Sodium Chloride (Ns Inj) 1,000 mls @ 0 mls/hr IV.SIG BOLUS [facility] Last Infusion: 11/28/17 06:29 Dose: Infused Ceftriaxone Sodium 1,000 mg/ (Sodium Chloride) 100 mls @ 200 mls/hr IV.SIG Q24H [facility] Last Infusion: 11/29/17 15:15 Dose: Infused Sodium Chloride (Ns Inj) 1,000 mls @ 0 mls/hr IV.SIG BOLUS [facility] Insulin Aspart (Novolog Insulin Correctional Sugar Inj) 0 unit SQ ACHS [facility]; Protocol Last Admin: 11/29/17 12:52 Dose: 5 unit Insulin Detemir (Levemir Inj) 7 unit SQ BID [facility] Last Admin: 11/29/17 08:11 Dose: 7 unit Lactulose (Lactulose Liq) 30 ml PO DAILY PRN PRN Reason: SEVERE CONSITIPATION Ondansetron HCl (Zofran Inj) 4 mg IV.PUSH Q6H PRN PRN Reason: NAUSEA OR VOMITING Senna/Docusate Sodium (Belinda-Colace) 1 tab PO BID [facility] Last Admin: 11/29/17 08:12 Dose: 1 tab Sennosides (Senokot) 17.2 mg PO Q12H PRN PRN Reason: Moderate Constipation Sodium Chloride (Ns Flush) 2 ml IV.FLUSH PRN PRN PRN Reason: FLUSH AFTER USING IV ACCESS Last Admin: 11/28/17 05:14 Dose: 2 ml Allergies Allergy/AdvReac Type Severity Reaction Status Date / Time No Known Allergies Allergy Unverified 08/02/17 06:11 Home Medications Medication Instructions Recorded Confirmed Type insulin asp prt-insulin aspart 1 sliding scale dose SUBCUT UD 11/28/17 11/28/17 History [Novolog Mix 70-30 U-100 Insuln] insulin detemir U-100 [Levemir 15 unit SUBCUT QPM 11/28/17 11/28/17 History U-100 Insulin] Physical Exam Vital signs: Vital Signs 11/28/17 20:00 11/28/17 22:32 11/29/17 00:00 Temperature 97.7 F 97.9 F Pulse Rate 96 H 92 H Respiratory Rate 15 22 16 Blood Pressure 92/56 L 78/49 L Pulse Oximetry 99 100 11/29/17 04:00 11/29/17 05:49 11/29/17 07:00 Temperature 97.4 F L 97.8 F Pulse Rate 97 H 93 H Respiratory Rate 15 20 15 Blood Pressure 121/69 Pulse Oximetry 99 97 11/29/17 08:00 11/29/17 09:00 11/29/17 09:43 Temperature Pulse Rate 96 H 96 H 117 H Respiratory Rate 18 16 20 Blood Pressure 94/68 L Pulse Oximetry 100 100 93 L 11/29/17 10:00 11/29/17 11:00 11/29/17 12:00 Temperature Pulse Rate 107 H 102 H 99 H Respiratory Rate 14 19 Blood Pressure Pulse Oximetry 100 100 100 11/29/17 13:00 11/29/17 14:00 11/29/17 15:00 Temperature Pulse Rate 93 H 106 H 104 H Respiratory Rate 21 21 20 Blood Pressure Pulse Oximetry 100 100 100 11/29/17 16:00 11/29/17 16:14 Temperature Pulse Rate 101 H 100 H Respiratory Rate 15 Blood Pressure 100/61 Pulse Oximetry 100 99 Intake & Output 11/28/17 11/29/17 11/29/17 18:59 06:59 18:59 Intake Total 529 / 529 450 / 450 100 / 100 Balance 529 / 529 450 / 450 100 / 100 Weight 62 kg Intake: IV 129 / 129 100 / 100 NovoLIN R (IV Infusion) 100 29 / 29 UNIT In NS Inj 99 ML @ Per Protocol IV.CONT TITRATE PRN Rx #:[id number] Rocephin Inj 1,000 MG In NS Inj 100 / 100 100 / 100 100 ML @ 200 mls/hr IV.SIG Q24H [facility] Rx#:[id number] Oral 400 / 400 450 / 450 Other: # Voids 2 2 Date of Last Bowel Movement 11/28/17 11/28/17 11/29/17 # Bowel Movements 2 1 Narrative: GENERAL: This is a well-nourished, well-developed patient, in no apparent distress. SKIN: Dorsal digital ulcers noted to left foot digits 2 3 and 4 HEAD: Atraumatic. EYES: Pupils equal round and reactive. ENT: Airway patent. NECK: Trachea midline. RESPIRATORY: Nonlabored breathing. MUSCULOSKELETAL:. Negative Homans sign bilaterally. NEUROLOGICAL: Awake and alert. Normal speech. Lower extremity physical exam: Vascular: Dorsalis pedis 2/4, posterior tibial 1/4. Capillary refill time within normal limits to digits X5 left foot. Edema present to left foot Neuro: Gross sensation intact to bilateral lower extremity. Pinpoint sensation decreased. No hyperalgesia noted to left foot. Dermatology: Dorsal digital eschars noted to left foot digits 2, 3, 4. Mild surrounding erythema with mild edema. Eschar noted to left foot at medial eminence. No purulent drainage noted. No crepitus or fluctuance noted upon compression to left foot. Musculoskeletal: Tender to palpation to left foot at digital ulcerations. Assessment and Plan - Plan 52-year-old female status post below-knee amputation to right lower extremity with left digital ulcerations noted to digits 2,3,4 dorsally X-ray to be obtained to rule out any bony involvement Daily wound care dressing orders to be placed, Betadine with dry sterile dressing We will review/draw ESR CRP We will continue to follow patient and follow-up on x-ray
--- NOTE | 2017-11-29 18:28 | XR ---
EXAM DATE: 11/29/2017 5:38 PM EDT AGE/SEX: 52 years / Female INDICATIONS: Left foot pain. CLINICAL DATA: This is the patient's initial encounter. Patient reports that signs and symptoms have been present for 1 week and indicates a pain score of 8/10. MEDICAL/SURGICAL HISTORY: . Hypertension. Hepatitis C. Diabetes mellitus type II . Right lower limb amputation. COMPARISON: No prior exams available for comparison. FINDINGS: The bones and joints are normally aligned. There is some questionable cortical irregularity seen at t he proximal medial aspect of the fifth proximal phalanx. Subtle fracture cannot be excluded. There is also some lucency seen on the oblique view at the distal aspect of the first distal phalanx. This is likely artifactual secondary to overlap. This area appears normal on the other 2 views. The soft tis sues appear intact. CONCLUSION: Questionable findings described above in the fifth proximal phalanx and first proximal phalanx. It ca n be correlated these are potential sites of injury. Electronically signed by: Derek Neil MD 11/29/2017 6:27 PM EDT
[2017-11-30] MEDS: Insulin Detemir Inj 1,000 UNIT/10 ML Vial SQ SCH ×2 (08:11→21:27)
[2017-11-30] MEDS: Insulin NovoLOG Aspart Correctional Sugar Inj SQ SCH ×4 (08:12→21:27)
[2017-11-30] MEDS: Senna/Docusate Sodium 8.6/50 MG Tablet PO SCH ×2 (08:12→21:28)
[2017-11-30] MEDS: Enoxaparin Inj 40 MG/0.4 ML Syringe SQ SCH (08:12)
[2017-11-30 08:20] LABS: Baso % (Auto) 0.3 % (0.0-2.0); Eos % (Auto) 0.3 % (0.0-4.0); Hematocrit 31.4 % (35.0-46.0); Hemoglobin 10.8 gm/dL (11.6-15.3); Lymph # (Auto) 2.7 th/mm3 (1.0-4.8); Mean Corpuscular HGB Conc 34.4 % (32.0-36.0); Mean Corpuscular Hemoglobin 28.1 pg (27.0-34.0); Mean Corpuscular Volume 81.7 fL (80.0-100.0); Mean Platelet Volume 9.6 fL (7.0-11.0); Mono # (Auto) 0.4 th/mm3 (0.0-0.9); Mono % (Auto) 3.7 % (0.0-8.0); Neut # (Auto) 7.2 th/mm3 (1.8-7.7); Neut % (Auto) 69.7 % (16.0-70.0); Platelet Count 252 th/mm3 (150-450); Red Blood Count 3.84 mil/mm3 (4.00-5.30); Red Cell Distribution Width 14.3 % (11.6-17.2); White Blood Count 10.3 th/mm3 (4.0-11.0)
[2017-11-30 08:40] LABS: Calcium 8.1 mg/dL (8.5-10.1); Carbon Dioxide 25.6 meq/L (21.0-32.0); Potassium 4.9 meq/L (3.5-5.1)
--- NOTE | 2017-11-30 16:03 | P.PN ---
Subjective Interval history: The patient was nausea and some vomiting says she is not able to eat either. Diarrgea one time. No fever or chills. The patient says she is usually not eating much as she has nausea, wants to see GI Physical Exam Vital signs: Vital Signs 11/29/17 16:14 11/29/17 17:00 11/29/17 18:00 Temperature Pulse Rate 100 H 87 99 H Respiratory Rate 15 32 H Blood Pressure 100/61 Pulse Oximetry 99 99 98 11/29/17 19:00 11/29/17 19:53 11/29/17 20:00 Temperature 98.3 F Pulse Rate 87 93 H 85 Respiratory Rate 14 26 H 25 H Blood Pressure 96/59 L Pulse Oximetry 97 98 98 11/29/17 21:00 11/29/17 22:00 11/29/17 23:00 Temperature Pulse Rate 94 H 90 87 Respiratory Rate 18 19 17 Blood Pressure Pulse Oximetry 96 97 11/29/17 23:13 11/30/17 00:00 11/30/17 01:00 Temperature 98.4 F Pulse Rate 92 H 92 H 85 Respiratory Rate 22 13 3 L Blood Pressure 135/74 Pulse Oximetry 98 98 99 11/30/17 02:00 11/30/17 03:00 11/30/17 04:00 Temperature 98 F Pulse Rate 84 85 85 Respiratory Rate 12 11 L 21 Blood Pressure Pulse Oximetry 99 99 99 11/30/17 06:00 11/30/17 08:00 11/30/17 09:00 Temperature 97.9 F Pulse Rate 92 H 96 H 100 H Respiratory Rate 22 14 Blood Pressure 135/76 Pulse Oximetry 100 100 11/30/17 10:00 11/30/17 10:45 11/30/17 11:00 Temperature Pulse Rate 111 H 117 H 113 H Respiratory Rate 13 17 14 Blood Pressure 136/73 94/56 L Pulse Oximetry 100 100 100 11/30/17 11:30 11/30/17 12:00 11/30/17 13:00 Temperature 99 F Pulse Rate 111 H 102 H Respiratory Rate 16 15 14 Blood Pressure 89/54 L 110/58 L Pulse Oximetry 100 100 11/30/17 14:00 11/30/17 15:47 Temperature Pulse Rate 100 H Respiratory Rate 13 16 Blood Pressure 113/66 Pulse Oximetry Intake & Output 10/01/0611/30/17 11/30/17 18:59 06:59 18:59 Intake Total 820 / 820 480 / 480 100 / 100 Balance 820 / 820 480 / 480 100 / 100 Weight 61.689 kg Intake: IV 100 / 100 100 / 100 Rocephin Inj 1,000 MG In NS Inj 100 / 100 100 / 100 100 ML @ 200 mls/hr IV.SIG Q24H [facility] Rx#:[id number] Oral 720 / 720 480 / 480 Other: # Voids 4 3 Date of Last Bowel Movement 11/29/17 11/29/17 11/30/17 # Bowel Movements 4 0 Results - Labs CBC & Chem 7: 11/30/17 06:17 11/30/17 06:17 Laboratory Results - last 24 hr 11/29/17 11/29/17 11/29/17 17:48 19:59 20:38 WBC RBC Hgb Hct MCV MCH MCHC RDW Plt Count MPV Neut % (Auto) Lymph % (Auto) [place] % (Auto) Eos % (Auto) Baso % (Auto) Neut # (Auto) Lymph # (Auto) [place] # (Auto) Eos # (Auto) Baso # (Auto) WBC Differential Differential Comment ESR Greater than 140 H Sodium Potassium Chloride Carbon Dioxide Anion Gap BUN Creatinine Estimated GFR POC Glucose 142 H 183 H Random Glucose Calcium C-Reactive Protein 11/29/17 11/30/17 11/30/17 20:38 06:17 06:17 WBC 10.3 RBC 3.84 L Hgb 10.8 L Hct 31.4 L MCV 81.7 MCH 28.1 MCHC 34.4 RDW 14.3 Plt Count 252 MPV 9.6 Neut % (Auto) 69.7 Lymph % (Auto) 26.0 [place] % (Auto) 3.7 Eos % (Auto) 0.3 Baso % (Auto) 0.3 Neut # (Auto) 7.2 Lymph # (Auto) 2.7 [place] # (Auto) 0.4 Eos # (Auto) 0.0 Baso # (Auto) 0.0 WBC Differential . Differential Comment Auto diff final ESR Sodium 135 L Potassium 4.9 Chloride 102 Carbon Dioxide 25.6 Anion Gap 7 BUN 20 H Creatinine 0.95 Estimated GFR 62 L POC Glucose Random Glucose 149 H Calcium 8.1 L C-Reactive Protein 7.30 H 11/30/17 11/30/17 08:10 12:40 WBC RBC Hgb Hct MCV MCH MCHC RDW Plt Count MPV Neut % (Auto) Lymph % (Auto) [place] % (Auto) Eos % (Auto) Baso % (Auto) Neut # (Auto) Lymph # (Auto) [place] # (Auto) Eos # (Auto) Baso # (Auto) WBC Differential Differential Comment ESR Sodium Potassium Chloride Carbon Dioxide Anion Gap BUN Creatinine Estimated GFR POC Glucose 184 H 84 Random Glucose Calcium C-Reactive Protein Microbiology 11/28/17 05:12 Blood - Peripheral Aerobic Blood Culture - Preliminary No growth in 2 days 11/28/17 05:12 Blood - Peripheral Anaerobic Blood Culture - Preliminary No growth in 2 days 11/28/17 05:10 Blood - Peripheral Aerobic Blood Culture - Preliminary No growth in 2 days 11/28/17 05:10 Blood - Peripheral Anaerobic Blood Culture - Preliminary No growth in 2 days 11/28/17 07:21 Clean Catch Urine Urine Culture - Final Klebsiella pneumoniae - Imaging Impressions Foot X-Ray 11/29/17 17:38 CONCLUSION: Questionable findings described above in the fifth proximal phalanx and first proximal phalanx. It can be correlated these are potential sites of injury. Assessment and Plan - Assessment (1) Cellulitis of foot, right Code(s): L03.115 - Cellulitis of right lower limb Status: Acute (2) Hyponatremia Code(s): E87.1 - Hypo-osmolality and hyponatremia Status: Acute (3) Hypokalemia Code(s): E87.6 - Hypokalemia Status: Acute (4) 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 Uncontrolled Diabetes mellitus with recent HGB A1c of 13. Pseudohyponatremia as BS is 1037 on admission. Failure to thrive Acute metabolic disturbance MARIO Hypotension Depression Poss UTI Status post below-knee amputation to right lower extremity with left digital ulcerations noted to digits 2,3,4 dorsally Sacral decubitus wound present on admission stage 3/4, and multiple presure wounds/ ulcers on various stages on legs and stump. Consult wound care for eval and management. Appreciate wound care recommendations. Also podiatry consulted for eschars left leg and toes on the left lower leg. 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 Received 2L bolus IVF with NS, continue NS IVF monitor closely labs. Monitor VS closely Monitor BMP frequently. Monitor on telemetry Start Rocephin IV for poss UTI. Urine cx, blood cx are pending. Patient with previous osteomyelitis, s/p recent AKA. Patient left AA on last admission Severe protein calorie malnutrition prealbumin of 9, low albumin as well. Consult dietitian for dietary supplement. Consult psych for eval as patient is depressed. Appreciate input. Consult posiatry appreciate recommendations: patient with status post below- knee amputation to right lower extremity with left digital ulcerations noted to digits 2,3,4 dorsally X-ray to be obtained to rule out any bony involvement Daily wound care dressing orders to be placed, Betadine with dry sterile dressing We will review/draw ESR CRP We will continue to follow patient and follow-up on x-ray Antiemetics as need for nausea/ vomiting [id number] scd/teds. lovenox Discussed with the patient, nurse. Transfer to med surg floor
[2017-12-01 06:45] LABS: Carbon Dioxide 23.7 meq/L (21.0-32.0); Potassium 4.7 meq/L (3.5-5.1)
[2017-12-01] MEDS ORDERED: Influenza (Quadrivalent) Vaccine 0.5 ML Syringe IM ONE (09:00)
[2017-12-01] MEDS: Insulin NovoLOG Aspart Correctional Sugar Inj SQ SCH ×4 (09:16→20:54)
[2017-12-01] MEDS: Insulin Detemir Inj 1,000 UNIT/10 ML Vial SQ SCH ×2 (09:16→20:54)
[2017-12-01] MEDS: Enoxaparin Inj 40 MG/0.4 ML Syringe SQ SCH (09:16)
[2017-12-01] MEDS: Senna/Docusate Sodium 8.6/50 MG Tablet PO SCH ×2 (09:17→20:53)
--- NOTE | 2017-12-01 09:21 | P.CONGI ---
History of Present Illness Consult date: 12/01/17 Consult reason: nausea/vomiting Chief complaint: Hyperglycemia, Hyponatremia, FTT History of Present Illness: This is a 52-year-old female with pmh of poorly controlled DM, osteomyelitis, s/ p recent right BKA amputation from a chronic nonhealing diabetic foot ulcer , several visits to the ED with several incidence of leaving AMA who presents emergency department for 4-day history of generalized weakness. Patient states she has been out of her insulin for the past 4 days as well. pt also has decubitus ulcer in sacrum area. Gi consulted for nausea and vomiting. States this is on going for almost 2 yrs, very little po intake because of it, diet consist of soups and fruits . Endorses several episodes of vomiting yesterday, denies abd pain with this, no hematemesis, no diarrhea or constipation. No melena or hematochezia. Never had EGD/colonoscopy before. lipase wnl, LFTs except elevation in ALP (267) wnl. Doesn't want EGD. <Nico Copeland - Last Filed: 12/01/17 09:05> Review of Systems All other systems reviewed negative except as stated in HPI <Nico Copeland - Last Filed: 12/01/17 09:05> PMFSH - History History Provided By: Patient, Medical Record - Medical History Medical History: Medical History (Last Reviewed 11/29/17 @ 17:44 by Kimberly York DPM) Benign hypertension Diabetes Hepatitis C virus Osteomyelitis - Surgical History Surgical History: Surgical History (Last Updated 11/29/17 @ 17:44 by Kimberly York DPM) Hx of AKA (above knee amputation) Previous section - Family History Family History: Family History (Last Reviewed 11/29/17 @ 17:44 by Kimberly York DPM) Mother EtOH dependence Father EtOH dependence - Tobacco History Second Hand Smoke Exposure: No Tobacco Use In Past 30 Days: No Smoking Status: Current some day smoker Tobacco Type: Cigarettes Packs Per Day: 2 Smoking End Date: 6 months ago - Alcohol History How Often Do You Have a Drink Containing Alcohol: Never - Substance Use History Substance History: No History of Abuse - Travel History Recent Travel in the [place] Within the Last 8 Weeks: No Recent Travel Out of the Country Within the Last 8 Weeks: No - Immunization History Tetanus Immunization: >5 Years Hx Influenza Vaccine This Season: No <Nico Copeland - Last Filed: 12/01/17 09:05> - Medical History Medical History: Medical History (Last Reviewed 11/29/17 @ 17:44 by Kimberly York DPM) Benign hypertension Diabetes Hepatitis C virus Osteomyelitis - Surgical History Surgical History: Surgical History (Last Updated 11/29/17 @ 17:44 by Kmiberly York DPM) Hx of AKA (above knee amputation) Previous section - Family History Family History: Family History (Last Reviewed 11/29/17 @ 17:44 by Kimberly York DPM) Mother EtOH dependence Father EtOH dependence <Laverne Blas - Last Filed: 12/01/17 22:42> Medications and Allergies Active Medications: Active Medications Acetaminophen (Tylenol) 650 mg PO Q4H PRN PRN Reason: Temp > 100.4 Last Admin: 11/29/17 21:00 Dose: 650 mg Hydrocodone Bitart/Acetaminophen ([place] 5/325) 1 tab PO Q6H PRN PRN Reason: pain 2-10 Last Admin: 12/01/17 04:04 Dose: 1 tab Al Hydroxide/Mg Hydroxide (Milk Of Magnesia Liq) 30 ml PO Q12H PRN PRN Reason: Mild Constipation Bisacodyl (Dulcolax Supp) 10 mg RECTAL DAILY PRN PRN Reason: SEVERE CONSITIPATION Dextrose (D50w Vial) 50 ml IV.PUSH UNSCH PRN PRN Reason: PER HYPOGLYCEMIA PROTOCOL Duloxetine HCl (Cymbalta) 30 mg PO DAILY RICARDO Last Admin: 11/30/17 08:11 Dose: 30 mg Enoxaparin Sodium (Lovenox Inj) 40 mg SQ Q24H RICARDO Last Admin: 11/30/17 08:12 Dose: 40 mg Glucagon (Glucagon Inj) 1 mg OTHER PRN PRN PRN Reason: for Hypoglycemia Protocol Sodium Chloride (Ns Inj) 1,000 mls @ 0 mls/hr IV.SIG BOLUS [facility] Last Infusion: 11/28/17 06:29 Dose: Infused Ceftriaxone Sodium 1,000 mg/ (Sodium Chloride) 100 mls @ 200 mls/hr IV.SIG Q24H RICARDO Last Infusion: 11/30/17 14:01 Dose: Infused Sodium Chloride (Ns Inj) 1,000 mls @ 0 mls/hr IV.SIG BOLUS [facility] Insulin Aspart (Novolog Insulin Correctional Sugar Inj) 0 unit SQ ACHS [facility]; Protocol Last Admin: 11/30/17 21:27 Dose: Not Given Insulin Detemir (Levemir Inj) 7 unit SQ BID [facility] Last Admin: 11/30/17 21:27 Dose: 7 unit Lactulose (Lactulose Liq) 30 ml PO DAILY PRN PRN Reason: SEVERE CONSITIPATION Metoclopramide HCl (Reglan Inj) 5 mg IV.PUSH Q8H PRN PRN Reason: NAUSEA Ondansetron HCl (Zofran Inj) 4 mg IV.PUSH Q6H PRN PRN Reason: NAUSEA OR VOMITING Last Admin: 11/30/17 14:52 Dose: 4 mg Promethazine HCl (Phenergan) 25 mg PO Q4H PRN PRN Reason: NAUSEA/VOMITING Senna/Docusate Sodium (Belinda-Colace) 1 tab PO BID [facility] Last Admin: 11/30/17 21:28 Dose: Not Given Sennosides (Senokot) 17.2 mg PO Q12H PRN PRN Reason: Moderate Constipation Sodium Chloride (Ns Flush) 2 ml IV.FLUSH PRN PRN PRN Reason: FLUSH AFTER USING IV ACCESS Last Admin: 11/28/17 05:14 Dose: 2 ml <Nico Copeland - Last Filed: 12/01/17 09:05> Active Medications: Active Medications Acetaminophen (Tylenol) 650 mg PO Q4H PRN PRN Reason: Temp > 100.4 Last Admin: 11/29/17 21:00 Dose: 650 mg Hydrocodone Bitart/Acetaminophen ([place] 5/325) 1 tab PO Q6H PRN PRN Reason: pain 2-10 Last Admin: 12/01/17 20:54 Dose: 1 tab Al Hydroxide/Mg Hydroxide (Milk Of Magnesia Liq) 30 ml PO Q12H PRN PRN Reason: Mild Constipation Bisacodyl (Dulcolax Supp) 10 mg RECTAL DAILY PRN PRN Reason: SEVERE CONSITIPATION Dextrose (D50w Vial) 50 ml IV.PUSH UNSCH PRN PRN Reason: PER HYPOGLYCEMIA PROTOCOL Duloxetine HCl (Cymbalta) 30 mg PO DAILY [facility] Last Admin: 12/01/17 09:16 Dose: 30 mg Enoxaparin Sodium (Lovenox Inj) 40 mg SQ Q24H [facility] Last Admin: 12/01/17 09:16 Dose: 40 mg Glucagon (Glucagon Inj) 1 mg OTHER PRN PRN PRN Reason: for Hypoglycemia Protocol Sodium Chloride (Ns Inj) 1,000 mls @ 0 mls/hr IV.SIG BOLUS [facility] Last Infusion: 11/28/17 06:29 Dose: Infused Ceftriaxone Sodium 1,000 mg/ (Sodium Chloride) 100 mls @ 200 mls/hr IV.SIG Q24H [facility] Last Infusion: 12/01/17 12:25 Dose: Infused Sodium Chloride (Ns Inj) 1,000 mls @ 0 mls/hr IV.SIG BOLUS [facility] Insulin Aspart (Novolog Insulin Correctional Sugar Inj) 0 unit SQ ACHS [facility]; Protocol Last Admin: 12/01/17 20:54 Dose: 3 unit Insulin Detemir (Levemir Inj) 7 unit SQ BID [facility] Last Admin: 12/01/17 20:54 Dose: 7 unit L-Arginine/L-Glutamine/Calcium HMB (Alek Packet) 1 packet G-TUBE BID [facility] Last Admin: 12/01/17 20:53 Dose: Not Given Lactulose (Lactulose Liq) 30 ml PO DAILY PRN PRN Reason: SEVERE CONSITIPATION Metoclopramide HCl (Reglan Inj) 5 mg IV.PUSH Q8H PRN PRN Reason: NAUSEA Ondansetron HCl (Zofran Inj) 4 mg IV.PUSH Q6H PRN PRN Reason: NAUSEA OR VOMITING Last Admin: 12/01/17 09:14 Dose: 4 mg Promethazine HCl (Phenergan) 25 mg PO Q4H PRN PRN Reason: NAUSEA/VOMITING Senna/Docusate Sodium (Belinda-Colace) 1 tab PO BID [facility] Last Admin: 12/01/17 20:53 Dose: Not Given Sennosides (Senokot) 17.2 mg PO Q12H PRN PRN Reason: Moderate Constipation Sodium Chloride (Ns Flush) 2 ml IV.FLUSH PRN PRN PRN Reason: FLUSH AFTER USING IV ACCESS Last Admin: 11/28/17 05:14 Dose: 2 ml <Laverne Blas - Last Filed: 12/01/17 22:42> Allergies Allergy/AdvReac Type Severity Reaction Status Date / Time No Known Allergies Allergy Unverified 08/02/17 06:11 Home Medications Medication Instructions Recorded Confirmed Type insulin asp prt-insulin aspart 1 sliding scale dose SUBCUT UD 11/28/17 11/28/17 History [Novolog Mix 70-30 U-100 Insuln] insulin detemir U-100 [Levemir 15 unit SUBCUT QPM 11/28/17 11/28/17 History U-100 Insulin] Exam Vital signs: Vital Signs 11/30/17 10:00 11/30/17 10:45 11/30/17 11:00 Temperature Pulse Rate 111 H 117 H 113 H Respiratory Rate 13 17 14 Blood Pressure 136/73 94/56 L Pulse Oximetry 100 100 100 11/30/17 11:30 11/30/17 12:00 11/30/17 13:00 Temperature 99 F Pulse Rate 111 H 102 H Respiratory Rate 16 15 14 Blood Pressure 89/54 L 110/58 L Pulse Oximetry 100 100 11/30/17 14:00 11/30/17 15:00 11/30/17 15:47 Temperature Pulse Rate 100 H 107 H Respiratory Rate 13 16 16 Blood Pressure 113/66 113/73 Pulse Oximetry 11/30/17 16:00 11/30/17 20:00 12/01/17 00:00 Temperature 98 F 98.4 F 97.9 F Pulse Rate 96 H 104 H 94 H Respiratory Rate 12 18 18 Blood Pressure 118/66 112/63 131/67 Pulse Oximetry 100 100 12/01/17 04:00 Temperature 98.2 F Pulse Rate 92 H Respiratory Rate 18 Blood Pressure 122/69 Pulse Oximetry 100 Intake & Output 11/30/17 12/01/17 12/01/17 18:59 06:59 18:59 Intake Total 100 / 100 Balance 100 / 100 Weight 61.8 kg Intake: IV 100 / 100 Rocephin Inj 1,000 MG In NS Inj 100 / 100 100 ML @ 200 mls/hr IV.SIG Q24H [facility] Rx#:[id number] Other: # Voids 3 # Incontinent Voids 6 Date of Last Bowel Movement 11/30/17 12/01/17 # Bowel Movements 2 6 # Emeses 3 Weight On Admission 61.689 kg - Constitutional no acute distress - Routine HEENT Exam Head: Present: normocephalic - Routine Respiratory Exam Present: CTA bilaterally - Routine Cardiovascular Exam Present: RRR - Routine Abdominal Exam Present: soft, normoactive bowel sounds. Absent: tenderness, distended - Routine Extremities Exam Comments: right BKA - Routine Skin Exam Absent: jaundice - Routine Neurological Exam Present: alert, oriented X3 <Nico Copeland - Last Filed: 12/01/17 09:05> Vital signs: Vital Signs 12/01/17 00:00 12/01/17 04:00 12/01/17 08:00 Temperature 97.9 F 98.2 F 97.9 F Pulse Rate 94 H 92 H 96 H Respiratory Rate 18 18 18 Blood Pressure 131/67 122/69 124/67 Pulse Oximetry 100 100 99 12/01/17 12:00 12/01/17 16:00 12/01/17 20:00 Temperature 98 F 98.1 F 97.8 F Pulse Rate 99 H 110 H 111 H Respiratory Rate 18 18 16 Blood Pressure 117/65 99/56 L 143/92 H Pulse Oximetry 100 96 96 Intake & Output 12/01/17 12/01/17 12/02/17 06:59 18:59 06:59 Intake Total 580 / 580 Balance 580 / 580 Weight 61.8 kg Intake: IV 100 / 100 Rocephin Inj 1,000 MG In NS Inj 100 / 100 100 ML @ 200 mls/hr IV.SIG Q24H [facility] Rx#:[id number] Oral 480 / 480 Other: # Voids 2 # Incontinent Voids 6 Date of Last Bowel Movement 12/01/17 # Bowel Movements 6 1 Weight On Admission 61.689 kg <Laverne Blas - Last Filed: 12/01/17 22:42> Results - Labs CBC & Chem 7: 11/30/17 06:17 12/01/17 05:42 Labs: Laboratory Results - last 24 hr 11/30/17 11/30/17 11/30/17 12:40 16:34 19:40 Sodium Potassium Chloride Carbon Dioxide Anion Gap BUN Creatinine Estimated GFR POC Glucose 84 97 98 Random Glucose Calcium 12/01/17 12/01/17 05:42 07:50 Sodium 135 L Potassium 4.7 Chloride 101 Carbon Dioxide 23.7 Anion Gap 10 BUN 17 Creatinine 0.85 Estimated GFR 70 L POC Glucose 207 H Random Glucose 178 H Calcium 8.0 L <Nico Copeland - Last Filed: 12/01/17 09:05> - Labs CBC & Chem 7: 11/30/17 06:17 12/01/17 05:42 Labs: Laboratory Results - last 24 hr 12/01/17 12/01/17 12/01/17 05:42 07:50 12:08 Sodium 135 L Potassium 4.7 Chloride 101 Carbon Dioxide 23.7 Anion Gap 10 BUN 17 Creatinine 0.85 Estimated GFR 70 L POC Glucose 207 H 311 H Random Glucose 178 H Calcium 8.0 L <Laverne Blas - Last Filed: 12/01/17 22:42> Assessment and Plan - Plan - Nausea/vomiting- Likely gastroparesis secondary to DM States this is on going for almost 2 yrs, very little po intake because of it , diet consist of soups and fruits . Endorses several episodes of vomiting yesterday, denies abd pain with this, no hematemesis, no diarrhea or constipation. No melena or hematochezia. Never had EGD/colonoscopy before. lipase wnl, LFTs except elevation in ALP (267) wnl. Doesn't want EGD. - poorly controlled DM, osteomyelitis, s/p recent right BKA amputation from a chronic nonhealing diabetic foot ulcer - decubitus ulcer in sacrum area. - several visits to the ED with several incidence of leaving AMA Plan: - Diabetic diet - Pt is declining EGD - Gastric emptying scan - US - alk phos isoenzymes - Add Reglan after having GES done - cont anti nausea meds - Supportive care - Pt seen and examined by Dr. Blas and myself and this note is written on her behalf. <Nico Copeland - Last Filed: 12/01/17 09:05> - Attending Attestation seen, examined agree with above <Laverne Blas - Last Filed: 12/01/17 22:42>
--- NOTE | 2017-12-01 10:09 | P.PN ---
Subjective Interval history: The patient is in bed she appears tired. Says she was not able to eat any breakfast. Still with nausea and vomiting. She is however refusing EGD. Plan for GES. Has no pain at this time. Says she does not have appetite. Denies chest pain fever chills. No cough. Physical Exam Vital signs: Vital Signs 11/30/17 10:45 11/30/17 11:00 11/30/17 11:30 Temperature Pulse Rate 117 H 113 H Respiratory Rate 17 14 16 Blood Pressure 136/73 94/56 L Pulse Oximetry 100 100 11/30/17 12:00 11/30/17 13:00 11/30/17 14:00 Temperature 99 F Pulse Rate 111 H 102 H 100 H Respiratory Rate 15 14 13 Blood Pressure 89/54 L 110/58 L 113/66 Pulse Oximetry 100 100 11/30/17 15:00 11/30/17 15:47 11/30/17 16:00 Temperature 98 F Pulse Rate 107 H 96 H Respiratory Rate 16 16 12 Blood Pressure 113/73 118/66 Pulse Oximetry 11/30/17 20:00 12/01/17 00:00 12/01/17 04:00 Temperature 98.4 F 97.9 F 98.2 F Pulse Rate 104 H 94 H 92 H Respiratory Rate 18 18 18 Blood Pressure 112/63 131/67 122/69 Pulse Oximetry 100 100 100 12/01/17 08:00 Temperature 97.9 F Pulse Rate 105 H Respiratory Rate 18 Blood Pressure 124/67 Pulse Oximetry 99 Intake & Output 11/30/17 12/01/17 12/01/17 18:59 06:59 18:59 Intake Total 100 / 100 Balance 100 / 100 Weight 61.8 kg Intake: IV 100 / 100 Rocephin Inj 1,000 MG In NS Inj 100 / 100 100 ML @ 200 mls/hr IV.SIG Q24H [facility] Rx#:[id number] Other: # Voids 3 # Incontinent Voids 6 Date of Last Bowel Movement 11/30/17 12/01/17 # Bowel Movements 2 6 # Emeses 3 Weight On Admission 61.689 kg Narrative: Physical examination completed by primary team. On my examination today, I find a thin, female in mild distress due to pain complaints. She is ill-appearing. No motor abnormalities are noted. Labs and vital signs reviewed : Laboratory Tests 11/29/17 11/29/17 06:05 06:05 WBC 11.1 H Hgb 11.0 L Plt Count 259 Sodium 133 L Potassium 5.2 H D Chloride 101 Carbon Dioxide 24.1 Estimated GFR 48 L Random Glucose 190 H AST 19 ALT 14 Alkaline Phosphatase 267 H Urine culture preliminarily growing out gram-negative rods. TSH was wnl in September. Results - Labs CBC & Chem 7: 11/30/17 06:17 12/01/17 05:42 Laboratory Results - last 24 hr 11/30/17 11/30/17 11/30/17 12:40 16:34 19:40 Sodium Potassium Chloride Carbon Dioxide Anion Gap BUN Creatinine Estimated GFR POC Glucose 84 97 98 Random Glucose Calcium 12/01/17 12/01/17 05:42 07:50 Sodium 135 L Potassium 4.7 Chloride 101 Carbon Dioxide 23.7 Anion Gap 10 BUN 17 Creatinine 0.85 Estimated GFR 70 L POC Glucose 207 H Random Glucose 178 H Calcium 8.0 L Microbiology 11/28/17 05:12 Blood - Peripheral Aerobic Blood Culture - Preliminary No growth in 2 days 11/28/17 05:12 Blood - Peripheral Anaerobic Blood Culture - Preliminary No growth in 2 days 11/28/17 05:10 Blood - Peripheral Aerobic Blood Culture - Preliminary No growth in 2 days 11/28/17 05:10 Blood - Peripheral Anaerobic Blood Culture - Preliminary No growth in 2 days 11/28/17 07:21 Clean Catch Urine Urine Culture - Final Klebsiella pneumoniae Assessment and Plan - Assessment (1) Cellulitis of foot, right Code(s): L03.115 - Cellulitis of right lower limb Status: Acute (2) Hyponatremia Code(s): E87.1 - Hypo-osmolality and hyponatremia Status: Acute (3) Hypokalemia Code(s): E87.6 - Hypokalemia Status: Acute (4) 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 Uncontrolled Diabetes mellitus with recent HGB A1c of 13. Pseudohyponatremia as BS is 1037 on admission. Failure to thrive Acute metabolic disturbance MARIO Hypotension Depression Poss UTI Status post below-knee amputation to right lower extremity with left digital ulcerations noted to digits 2,3,4 dorsally Sacral decubitus wound present on admission stage 3/4, and multiple presure wounds/ ulcers on various stages on legs and stump. Consult wound care for eval and management. Appreciate wound care recommendations. Also podiatry consulted for eschars left leg and toes on the left lower leg. Nausea, vomiting, decreased appetite and decreased PO intake. Patient with diabetes and likely with gastroparesis. Consult GI appreciate recommendations. Patient declines EGD. Plan for Gastric emptying scan . 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 Received 2L bolus IVF with NS, continue NS IVF monitor closely labs. Monitor VS closely Monitor BMP frequently. Monitor on telemetry Start Rocephin IV for poss UTI. Urine cx, blood cx are pending. Patient with previous osteomyelitis, s/p recent AKA. Patient left AA on last admission Severe protein calorie malnutrition prealbumin of 9, low albumin as well. Consult dietitian for dietary supplement. Consult psych for eval as patient is depressed. Appreciate input. Consult posiatry appreciate recommendations: patient with status post below- knee amputation to right lower extremity with left digital ulcerations noted to digits 2,3,4 dorsally X-ray to be obtained to rule out any bony involvement Daily wound care dressing orders to be placed, Betadine with dry sterile dressing, check ESR CRP We will continue to follow patient and follow-up on x-ray Antiemetics as need for nausea/ vomiting Consult GI appreciate recommendations. Patient declines EGD. Plan for empting study scan. DVTppx scd/teds. lovenox Discussed with the patient, nurse. Discharge plan pending improvement. Patient was nausea and vomiting decreased appetite failure to thrive severe protein calorie malnutrition. Plan for gastric emptying studies.. GI
--- NOTE | 2017-12-01 11:47 | P.DIET ---
Nutritional Evaluation Type of nutrition evaluation: initial Nutrition consult regarding: Diet Evaluation Nutrition screening: [facility] [place] (stage 4 pressure injury and DTI) Objective - Diagnosis weakness - Objective Part of Body Amputated: Left below knee (6%) (132# IBW with L BKA) [place] body weight: 60 kg % IBW: 103 Body Weight Used for Calculations: Actual Energy Needs - Lower Range (kCal/kg): 30 Energy Needs - Upper Range (kCal/kg): 35 Lower Limit kCal/kg (kCals): 1,860 Upper Limit kCal/kg (kCals): 2,170 Lower Limit Protein Factor (Grams per Kg): 1 Upper Limit Protein Factor (Grams per Kg): 1.5 Lower Protein Needs (Protein): 62 Upper Protein Needs (Protein): 93 Dietitian Reviewed in Medical Record: Current diet, Curent medications, Labs, Medical history Diet Order: 1800ADA Oral Diet Intake Amount: Poor <50% Assessment Assessment: Pt. is at nutritional risk due to dx. Pt. presents emergency department for 4- day history of generalized weakness. Patient states she has been out of her insulin for the past 4 days as well. Pt. noted to have multiple ulcers. HbA1c of 13 with admission BGlu of 1037. Pt. with poor PO intake with nausea possible due to gastroparesis per MD, GI consulted. Will send Alek BID to aid in wound healing, encourage the intake of this. Will send Glucerna shakes TID with each meal. Monitor PO intake, labs and wounds. Recommendations: 1. Will send Alek BID to aid in wound healing, encourage the intake of this. 2. Will send Glucerna shakes TID with each meal. 3. Monitor PO intake, labs and wounds. Dietitian to Monitor: Lab values, Glucose level, Diet tolerance, Weight change, PO Intake, Wound/skin status, Medical course
[2017-12-02 07:22] LABS: Calcium 7.9 mg/dL (8.5-10.1); Carbon Dioxide 24.9 meq/L (21.0-32.0); Potassium 3.8 meq/L (3.5-5.1)
[2017-12-02] MEDS: Insulin NovoLOG Aspart Correctional Sugar Inj SQ SCH ×4 (09:04→20:40)
[2017-12-02] MEDS: Senna/Docusate Sodium 8.6/50 MG Tablet PO SCH ×2 (09:05→20:40)
[2017-12-02] MEDS: Insulin Detemir Inj 1,000 UNIT/10 ML Vial SQ SCH ×2 (09:05→20:39)
[2017-12-02] MEDS: Enoxaparin Inj 40 MG/0.4 ML Syringe SQ SCH (09:05)
--- NOTE | 2017-12-02 12:15 | P.PNPOD ---
Subjective Interval history: Patient seen bedside. No concerns at this time. Physical Exam Vital signs: Vital Signs 12/01/17 16:00 12/01/17 20:00 12/02/17 00:00 Temperature 98.1 F 97.8 F 98.2 F Pulse Rate 110 H 110 H 100 H Respiratory Rate 18 16 16 Blood Pressure 99/56 L 143/92 H 115/63 Pulse Oximetry 96 96 96 12/02/17 04:00 12/02/17 07:53 12/02/17 08:00 Temperature 98.0 F 97.9 F Pulse Rate 95 H 77 86 Respiratory Rate 18 18 Blood Pressure 121/75 129/67 Pulse Oximetry 99 98 Intake & Output 12/01/17 12/02/17 12/02/17 18:59 06:59 18:59 Intake Total 580 / 580 460 / 460 Balance 580 / 580 460 / 460 Weight 59 kg Intake: IV 100 / 100 Rocephin Inj 1,000 MG In NS Inj 100 / 100 100 ML @ 200 mls/hr IV.SIG Q24H [facility] Rx#:[id number] Oral 480 / 480 460 / 460 Other: # Voids 2 2 Date of Last Bowel Movement 12/01/17 12/01/17 # Bowel Movements 1 2 Narrative: Eschar noted to medial hallux as well as dorsally to digits 2 3 and 4 with mild surrounding erythema. Mild edema noted to left forefoot. Capillary refill time under 3 seconds within normal limits. DP palpable, PT diminished. Medications and Allergies Active Medications: Active Medications Acetaminophen (Tylenol) 650 mg PO Q4H PRN PRN Reason: Temp > 100.4 Last Admin: 11/29/17 21:00 Dose: 650 mg Hydrocodone Bitart/Acetaminophen ([place] 5/325) 1 tab PO Q6H PRN PRN Reason: pain 2-10 Last Admin: 12/02/17 04:10 Dose: 1 tab Al Hydroxide/Mg Hydroxide (Milk Of Magnesia Liq) 30 ml PO Q12H PRN PRN Reason: Mild Constipation Bisacodyl (Dulcolax Supp) 10 mg RECTAL DAILY PRN PRN Reason: SEVERE CONSITIPATION Dextrose (D50w Vial) 50 ml IV.PUSH UNSCH PRN PRN Reason: PER HYPOGLYCEMIA PROTOCOL Duloxetine HCl (Cymbalta) 30 mg PO DAILY [facility] Last Admin: 12/02/17 09:05 Dose: 30 mg Enoxaparin Sodium (Lovenox Inj) 40 mg SQ Q24H [facility] Last Admin: 12/02/17 09:05 Dose: 40 mg Glucagon (Glucagon Inj) 1 mg OTHER PRN PRN PRN Reason: for Hypoglycemia Protocol Sodium Chloride (Ns Inj) 1,000 mls @ 0 mls/hr IV.SIG BOLUS [facility] Last Infusion: 11/28/17 06:29 Dose: Infused Ceftriaxone Sodium 1,000 mg/ (Sodium Chloride) 100 mls @ 200 mls/hr IV.SIG Q24H [facility] Last Infusion: 12/01/17 12:25 Dose: Infused Sodium Chloride (Ns Inj) 1,000 mls @ 0 mls/hr IV.SIG BOLUS [facility] Insulin Aspart (Novolog Insulin Correctional Sugar Inj) 0 unit SQ ACHS [facility]; Protocol Last Admin: 12/02/17 09:04 Dose: 1 unit Insulin Detemir (Levemir Inj) 7 unit SQ BID [facility] Last Admin: 12/02/17 09:05 Dose: 7 unit L-Arginine/L-Glutamine/Calcium HMB (Alek Packet) 1 packet G-TUBE BID [facility] Last Admin: 12/02/17 09:06 Dose: 1 packet Lactulose (Lactulose Liq) 30 ml PO DAILY PRN PRN Reason: SEVERE CONSITIPATION Metoclopramide HCl (Reglan Inj) 5 mg IV.PUSH Q8H PRN PRN Reason: NAUSEA Ondansetron HCl (Zofran Inj) 4 mg IV.PUSH Q6H PRN PRN Reason: NAUSEA OR VOMITING Last Admin: 12/01/17 09:14 Dose: 4 mg Promethazine HCl (Phenergan) 25 mg PO Q4H PRN PRN Reason: NAUSEA/VOMITING Senna/Docusate Sodium (Belinda-Colace) 1 tab PO BID [facility] Last Admin: 12/02/17 09:05 Dose: Not Given Sennosides (Senokot) 17.2 mg PO Q12H PRN PRN Reason: Moderate Constipation Sodium Chloride (Ns Flush) 2 ml IV.FLUSH PRN PRN PRN Reason: FLUSH AFTER USING IV ACCESS Last Admin: 11/28/17 05:14 Dose: 2 ml Allergies Allergy/AdvReac Type Severity Reaction Status Date / Time No Known Allergies Allergy Unverified 08/02/17 06:11 Home Medications Medication Instructions Recorded Confirmed Type insulin asp prt-insulin aspart 1 sliding scale dose SUBCUT UD 11/28/17 11/28/17 History [Novolog Mix 70-30 U-100 Insuln] insulin detemir U-100 [Levemir 15 unit SUBCUT QPM 11/28/17 11/28/17 History U-100 Insulin] Results - Labs CBC & Chem 7: 11/30/17 06:17 12/02/17 05:50 Laboratory Results - last 24 hr 12/02/17 05:50 Sodium 134 L Potassium 3.8 D Chloride 101 Carbon Dioxide 24.9 Anion Gap 8 BUN 17 Creatinine 0.87 Estimated GFR 68 L Random Glucose 152 H Calcium 7.9 L Microbiology 11/28/17 05:12 Blood - Peripheral Aerobic Blood Culture - Preliminary No growth in 4 days 11/28/17 05:12 Blood - Peripheral Anaerobic Blood Culture - Preliminary No growth in 4 days 11/28/17 05:10 Blood - Peripheral Aerobic Blood Culture - Preliminary No growth in 4 days 11/28/17 05:10 Blood - Peripheral Anaerobic Blood Culture - Preliminary pleomorphic gram positive rods Assessment and Plan - Plan 52-year-old female with left foot ulceration status post right lower extremity below-knee amputation Daily dressing changes to consist of Santyl with moist to dry dressing Patient will need close follow-up with wound care Patient is not to be discharged until wound care and home health has been established Patient has high risk he has a right lower extremity below-knee amputation X-rays negative for any osteomyelitis or bone involvement Plan is for wound care follow-up with home health care
--- NOTE | 2017-12-02 13:50 | P.PN ---
Subjective Interval history: The patient is in bed she appears tired. However says she wants to go home. She is refusing EGD. She is also still with nausea vomiting and not able to eat. No fever or chills overnight. Blood cultures however with 1 out of 4 bottles positive pleomorphic gram-positive rods. Consult infectious disease for evaluation Physical Exam Vital signs: Vital Signs 12/01/17 16:00 12/01/17 20:00 12/02/17 00:00 Temperature 98.1 F 97.8 F 98.2 F Pulse Rate 110 H 110 H 100 H Respiratory Rate 18 16 16 Blood Pressure 99/56 L 143/92 H 115/63 Pulse Oximetry 96 96 96 12/02/17 04:00 12/02/17 07:53 12/02/17 08:00 Temperature 98.0 F 97.9 F Pulse Rate 95 H 77 86 Respiratory Rate 18 18 Blood Pressure 121/75 129/67 Pulse Oximetry 99 98 Intake & Output 12/01/17 12/02/17 12/02/17 18:59 06:59 18:59 Intake Total 580 / 580 460 / 460 Balance 580 / 580 460 / 460 Weight 59 kg Intake: IV 100 / 100 Rocephin Inj 1,000 MG In NS Inj 100 / 100 100 ML @ 200 mls/hr IV.SIG Q24H [facility] Rx#:[id number] Oral 480 / 480 460 / 460 Other: # Voids 2 2 Date of Last Bowel Movement 12/01/17 12/01/17 # Bowel Movements 1 2 Narrative: Physical examination completed by primary team. On my examination today, I find a thin, female in mild distress due to pain complaints. She is ill-appearing. No motor abnormalities are noted. Labs and vital signs reviewed : Laboratory Tests 11/29/17 11/29/17 06:05 06:05 WBC 11.1 H Hgb 11.0 L Plt Count 259 Sodium 133 L Potassium 5.2 H D Chloride 101 Carbon Dioxide 24.1 Estimated GFR 48 L Random Glucose 190 H AST 19 ALT 14 Alkaline Phosphatase 267 H Urine culture preliminarily growing out gram-negative rods. TSH was wnl in September. Results - Labs CBC & Chem 7: 11/30/17 06:17 12/02/17 05:50 Laboratory Results - last 24 hr 12/02/17 12/02/17 05:50 12:56 Sodium 134 L Potassium 3.8 D Chloride 101 Carbon Dioxide 24.9 Anion Gap 8 BUN 17 Creatinine 0.87 Estimated GFR 68 L POC Glucose 217 H Random Glucose 152 H Calcium 7.9 L Microbiology 11/28/17 05:12 Blood - Peripheral Aerobic Blood Culture - Preliminary No growth in 4 days 11/28/17 05:12 Blood - Peripheral Anaerobic Blood Culture - Preliminary No growth in 4 days 11/28/17 05:10 Blood - Peripheral Aerobic Blood Culture - Preliminary No growth in 4 days 11/28/17 05:10 Blood - Peripheral Anaerobic Blood Culture - Preliminary pleomorphic gram positive rods Assessment and Plan - Assessment (1) Cellulitis of foot, right Code(s): L03.115 - Cellulitis of right lower limb Status: Acute (2) Hyponatremia Code(s): E87.1 - Hypo-osmolality and hyponatremia Status: Acute (3) Hypokalemia Code(s): E87.6 - Hypokalemia Status: Acute (4) 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 Uncontrolled Diabetes mellitus with recent HGB A1c of 13. Pseudohyponatremia as BS is 1037 on admission. Failure to thrive Acute metabolic disturbance MARIO Hypotension Depression Poss UTI Bacteremia. 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 Consult wound care for eval and management. Appreciate wound care recommendations. Also podiatry consulted for eschars left leg and toes on the left lower leg. Nausea, vomiting, decreased appetite and decreased PO intake. Patient with diabetes and likely with gastroparesis. Consult GI appreciate recommendations. Patient declines EGD. Plan for Gastric emptying scan . 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 Received 2L bolus IVF with NS, continue NS IVF monitor closely labs. Monitor VS closely Monitor BMP frequently. Monitor on telemetry Start Rocephin IV for poss UTI. Urine cx, blood cx are pending. Patient with previous osteomyelitis, s/p recent AKA. Patient left AA on last admission Severe protein calorie malnutrition prealbumin of 9, low albumin as well. Consult dietitian for dietary supplement. Consult psych for eval as patient is depressed. Appreciate input. Consult posiatry appreciate recommendations: patient with status post below- knee amputation to right lower extremity with left digital ulcerations noted to digits 2,3,4 dorsally X-ray to be obtained to rule out any bony involvement Daily wound care dressing orders to be placed, Betadine with dry sterile dressing, check ESR CRP We will continue to follow patient and follow-up on x-ray Antiemetics as need for nausea/ vomiting Consult GI appreciate recommendations. Patient declines EGD and empting study scan. Patient is with persistent nausea and vomiting Bacteremia. 1 out of 4 bottles with pleomorphic for gram-positive rods possible contaminant however will consult infectious disease for evaluation DVTppx scd/teds. lovenox Discussed with the patient, nurse. Discharge plan pending improvement. Patient was nausea and vomiting decreased appetite failure to thrive severe protein calorie malnutrition. Refusing procedures and imaging recommended by GI. Patient also with bacteremia 1 out of 4 bottles with pleomorphic for gram-positive rods possible contaminant however will consult infectious disease for evaluation.
--- NOTE | 2017-12-02 13:52 | P.PNGI ---
Subjective Interval history: Pt is resting in bed, wants to go home, refusing to have imaging done, states she is doing better today, tolerating diet okay <Nico Copeland - Last Filed: 12/02/17 13:46> Physical Exam Vital signs: Vital Signs 12/01/17 16:00 12/01/17 20:00 12/02/17 00:00 Temperature 98.1 F 97.8 F 98.2 F Pulse Rate 110 H 110 H 100 H Respiratory Rate 18 16 16 Blood Pressure 99/56 L 143/92 H 115/63 Pulse Oximetry 96 96 96 12/02/17 04:00 12/02/17 07:53 12/02/17 08:00 Temperature 98.0 F 97.9 F Pulse Rate 95 H 77 86 Respiratory Rate 18 18 Blood Pressure 121/75 129/67 Pulse Oximetry 99 98 Intake & Output 12/01/17 12/02/17 12/02/17 18:59 06:59 18:59 Intake Total 580 / 580 460 / 460 Balance 580 / 580 460 / 460 Weight 59 kg Intake: IV 100 / 100 Rocephin Inj 1,000 MG In NS Inj 100 / 100 100 ML @ 200 mls/hr IV.SIG Q24H [facility] Rx#:[id number] Oral 480 / 480 460 / 460 Other: # Voids 2 2 Date of Last Bowel Movement 12/01/17 12/01/17 # Bowel Movements 1 2 - Constitutional no acute distress - Routine HEENT Exam Head: Present: normocephalic - Routine Respiratory Exam Present: CTA bilaterally - Routine Cardiovascular Exam Present: RRR - Routine Abdominal Exam Present: soft, normoactive bowel sounds. Absent: tenderness, distended - Routine Extremities Exam Comments: Right BKA - Routine Skin Exam Present: intact, dry - Routine Neurological Exam Present: alert, oriented X3 <Nico Copeland - Last Filed: 12/02/17 13:46> Vital signs: Vital Signs 12/01/17 16:00 12/01/17 20:00 12/02/17 00:00 Temperature 98.1 F 97.8 F 98.2 F Pulse Rate 110 H 110 H 100 H Respiratory Rate 18 16 16 Blood Pressure 99/56 L 143/92 H 115/63 Pulse Oximetry 96 96 96 12/02/17 04:00 12/02/17 07:53 12/02/17 08:00 Temperature 98.0 F 97.9 F Pulse Rate 95 H 77 86 Respiratory Rate 18 18 Blood Pressure 121/75 129/67 Pulse Oximetry 99 98 12/02/17 11:51 12/02/17 12:00 Temperature 97.7 F Pulse Rate 92 H 84 Respiratory Rate 18 Blood Pressure 130/68 Pulse Oximetry 98 Intake & Output 12/01/17 12/02/17 12/02/17 18:59 06:59 18:59 Intake Total 580 / 580 460 / 460 Balance 580 / 580 460 / 460 Weight 59 kg Intake: IV 100 / 100 Rocephin Inj 1,000 MG In NS Inj 100 / 100 100 ML @ 200 mls/hr IV.SIG Q24H [facility] Rx#:[id number] Oral 480 / 480 460 / 460 Other: # Voids 2 2 Date of Last Bowel Movement 12/01/17 12/01/17 # Bowel Movements 1 2 <Laverne Blas - Last Filed: 12/02/17 15:47> Results - Labs CBC & Chem 7: 11/30/17 06:17 12/02/17 05:50 Laboratory Results - last 24 hr 12/02/17 12/02/17 05:50 12:56 Sodium 134 L Potassium 3.8 D Chloride 101 Carbon Dioxide 24.9 Anion Gap 8 BUN 17 Creatinine 0.87 Estimated GFR 68 L POC Glucose 217 H Random Glucose 152 H Calcium 7.9 L Microbiology 11/28/17 05:12 Blood - Peripheral Aerobic Blood Culture - Preliminary No growth in 4 days 11/28/17 05:12 Blood - Peripheral Anaerobic Blood Culture - Preliminary No growth in 4 days 11/28/17 05:10 Blood - Peripheral Aerobic Blood Culture - Preliminary No growth in 4 days 11/28/17 05:10 Blood - Peripheral Anaerobic Blood Culture - Preliminary pleomorphic gram positive rods <Nico Copeland - Last Filed: 12/02/17 13:46> - Labs CBC & Chem 7: 11/30/17 06:17 12/02/17 05:50 Laboratory Results - last 24 hr 12/02/17 12/02/17 05:50 12:56 Sodium 134 L Potassium 3.8 D Chloride 101 Carbon Dioxide 24.9 Anion Gap 8 BUN 17 Creatinine 0.87 Estimated GFR 68 L POC Glucose 217 H Random Glucose 152 H Calcium 7.9 L Microbiology 11/28/17 05:12 Blood - Peripheral Aerobic Blood Culture - Preliminary No growth in 4 days 11/28/17 05:12 Blood - Peripheral Anaerobic Blood Culture - Preliminary No growth in 4 days 11/28/17 05:10 Blood - Peripheral Aerobic Blood Culture - Preliminary No growth in 4 days 11/28/17 05:10 Blood - Peripheral Anaerobic Blood Culture - Preliminary pleomorphic gram positive rods <Laverne Blas - Last Filed: 12/02/17 15:47> Assessment and Plan - Plan - Nausea/vomiting- Doing good today, denies N/V Refusing EGD, US, GES. Likely gastroparesis secondary to DM States this is on going for almost 2 yrs, very little po intake because of it , diet consist of soups and fruits. Never had EGD/colonoscopy before. lipase wnl, LFTs except elevation in ALP wnl. Doesn't want EGD. - poorly controlled DM, osteomyelitis, s/p recent right BKA amputation from a chronic nonhealing diabetic foot ulcer - decubitus ulcer in sacrum area. - several visits to the ED with several incidence of leaving AMA Plan: - Diabetic diet - Pt is declining EGD, US, GES - Await alk phos isoenzymes - Add Reglan - cont anti nausea meds - Gi will sign off - Pt seen and examined by Dr. Blas and myself and this note is written on her behalf. <Nico Copeland - Last Filed: 12/02/17 13:46> - Attending Attestation agree with above <Laverne Blas - Last Filed: 12/02/17 15:47>
[2017-12-02] MEDS: Collagenase Oint 30 GM Tube TOPICAL SCH (16:23)
[2017-12-03 07:15] LABS: Baso % (Auto) 0.4 % (0.0-2.0); Eos % (Auto) 0.3 % (0.0-4.0); Lymph # (Auto) 3.1 th/mm3 (1.0-4.8); Lymph % (Auto) 33.7 % (9.0-44.0); Mean Corpuscular HGB Conc 33.3 % (32.0-36.0); Mean Corpuscular Hemoglobin 27.4 pg (27.0-34.0); Mean Corpuscular Volume 82.3 fL (80.0-100.0); Mean Platelet Volume 8.8 fL (7.0-11.0); Mono # (Auto) 0.5 th/mm3 (0.0-0.9); Mono % (Auto) 5.4 % (0.0-8.0); Neut # (Auto) 5.5 th/mm3 (1.8-7.7); Neut % (Auto) 60.2 % (16.0-70.0); Platelet Count 228 th/mm3 (150-450); Red Blood Count 3.65 mil/mm3 (4.00-5.30); Red Cell Distribution Width 14.2 % (11.6-17.2); White Blood Count 9.1 th/mm3 (4.0-11.0)
[2017-12-03 07:40] LABS: Calcium 8.3 mg/dL (8.5-10.1); Carbon Dioxide 24.2 meq/L (21.0-32.0); Potassium 3.5 meq/L (3.5-5.1)
[2017-12-03] MEDS: Insulin NovoLOG Aspart Correctional Sugar Inj SQ SCH ×4 (08:08→21:49)
[2017-12-03] MEDS: Enoxaparin Inj 40 MG/0.4 ML Syringe SQ SCH (08:15)
[2017-12-03] MEDS: Senna/Docusate Sodium 8.6/50 MG Tablet PO SCH ×2 (08:16→21:49)
[2017-12-03] MEDS: Insulin Detemir Inj 1,000 UNIT/10 ML Vial SQ SCH ×2 (09:57→21:49)
[2017-12-03] MEDS: Collagenase Oint 30 GM Tube TOPICAL SCH (12:08)
--- NOTE | 2017-12-03 13:29 | MB ---
cc: Chapincito Song MD DATE: 12/03/2017 REQUESTING PHYSICIAN: Dr. Neeta Tena. REASON: Bacteremia. HISTORY OF PRESENT ILLNESS: This is a 52-year-old white female who was admitted to the hospital because of generalized weakness on 11/28/2017. The patient has been evaluated for the weakness. The blood pressure was normal on admission and she was afebrile. The white blood cell count was also normal on admission. The patient had blood culture taken and 1 bottle of 4 grew Bifidobacterium species. This is the reason why this consultation for infectious disease evaluation was requested. The patient is in no acute distress. She is awake and alert. She denies chills, nausea or vomiting. She has been afebrile since admission. The patient tells me that she does not want to be taking any more IV antibiotics. She is currently on ceftriaxone. She tells me that she has been taking an antibiotic for chronic wound of the left leg. She is status post [id number] amputation. The patient reports that she has taken an oral antibiotic for infection of the right leg. She is status post right BKA in September 2017. PAST MEDICAL HISTORY: Hypertension, diabetes mellitus, hepatitis C, history of the right leg. ALLERGIES: NO KNOWN DRUG ALLERGIES. MEDICATIONS: 1. Welcome 5. 2. Ceftriaxone. 3. Cymbalta. 4. Lovenox. 5. Levemir. SOCIAL HISTORY: The patient is a former smoker. She quit smoking cigarettes 6 months ago. She denies alcohol. Denies illicit drugs. FAMILY HISTORY: Noncontributory. REVIEW OF SYSTEMS: Significant for diarrhea, decreased sensation of the lower extremities. All systems otherwise negative on review. PHYSICAL EXAMINATION: GENERAL: This is a slender female who is in no acute distress. She is awake and alert and oriented. VITAL SIGNS: Includes temperature 97.7, BP is 142/84, respirations 17, heart rate 91. HEENT: The head is atraumatic. Extraocular movements are grossly intact. Pupils reactive to light. No icterus. Oropharynx: Moist mucosa. No visible lesions. NECK: Supple without adenopathy. LUNGS: Decreased breath sounds. HEART: Regular S1, S2, without murmurs, rubs or gallops. ABDOMEN: Bowel sounds present. Soft, nontender. RECTAL: Not performed. BACK: Sacral decubitus ulceration which is very clean and has good granulation tissue. This measures approximately the size of a quarter coin. EXTREMITIES: The right lower extremity amputation stump appears intact. The left foot has dried necrotic changes at the dorsum of toes 2, 3, and 4. SKIN: No rash. NEUROLOGIC: No gross focal findings. PSYCHIATRIC: The patient is calm and cooperative. LABORATORY DATA: WBC 9.1, platelets 228,000, hemoglobin 10.0, creatinine 0.69, BUN 15, sodium 136. IMPRESSION: Positive blood culture in 1 of 4 bottles which has Bifidobacterium species. The patient is clinically stable and has no fever or elevated white blood cell count. I think this is clearly contamination and not significant and it is not necessary to provide antibiotic treatment. From my standpoint, antibiotic can be discontinued for this positive blood culture. MD ABIGAIL Lopez/karyn , 12:43 PM , 12:56 PM KEVIN
--- NOTE | 2017-12-03 14:18 | P.PN ---
Subjective Interval history: Trying to eat more today especially proteins. No fever or chills. Still with nausea but not vomiting. Eating a little bit. no fever or chills. Says she has a walker and a wheelchair at home Physical Exam Vital signs: Vital Signs 12/02/17 16:00 12/02/17 20:00 12/02/17 20:20 Temperature 98.1 F 98.5 F Pulse Rate 91 H 107 H 94 H Respiratory Rate 18 16 Blood Pressure 127/67 113/64 Pulse Oximetry 98 99 12/03/17 00:00 12/03/17 04:00 12/03/17 08:00 Temperature 97.9 F 97.7 F Pulse Rate 88 91 H 75 Respiratory Rate 17 17 Blood Pressure 104/58 L 142/84 H Pulse Oximetry 100 100 Intake & Output 12/02/17 12/03/17 12/03/17 18:59 06:59 18:59 Intake Total 440 / 440 240 / 240 Balance 440 / 440 240 / 240 Weight 59.5 kg Intake: Oral 440 / 440 240 / 240 Other: # Voids 3 # Incontinent Voids 2 Date of Last Bowel Movement 12/01/17 12/02/17 # Bowel Movements 1 # Incontinent Bowel Movements 2 Narrative: Physical examination completed by primary team. On my examination today, I find a thin, female in mild distress due to pain complaints. She is ill-appearing. No motor abnormalities are noted. Labs and vital signs reviewed : Laboratory Tests 11/29/17 11/29/17 06:05 06:05 WBC 11.1 H Hgb 11.0 L Plt Count 259 Sodium 133 L Potassium 5.2 H D Chloride 101 Carbon Dioxide 24.1 Estimated GFR 48 L Random Glucose 190 H AST 19 ALT 14 Alkaline Phosphatase 267 H Urine culture preliminarily growing out gram-negative rods. TSH was wnl in September. Results - Labs CBC & Chem 7: 12/03/17 06:40 12/03/17 06:19 Laboratory Results - last 24 hr 12/02/17 12/02/17 12/03/17 16:22 19:37 06:19 WBC RBC Hgb Hct MCV MCH MCHC RDW Plt Count MPV Neut % (Auto) Lymph % (Auto) Brewster % (Auto) Eos % (Auto) Baso % (Auto) Neut # (Auto) Lymph # (Auto) Brewster # (Auto) Eos # (Auto) Baso # (Auto) WBC Differential Differential Comment Sodium 136 Potassium 3.5 Chloride 101 Carbon Dioxide 24.2 Anion Gap 11 BUN 15 Creatinine 0.69 Estimated GFR 89 POC Glucose 159 H 203 H Random Glucose 135 H Calcium 8.3 L 12/03/17 12/03/17 12/03/17 06:40 07:40 12:30 WBC 9.1 RBC 3.65 L Hgb 10.0 L Hct 30.0 L MCV 82.3 MCH 27.4 MCHC 33.3 RDW 14.2 Plt Count 228 MPV 8.8 Neut % (Auto) 60.2 Lymph % (Auto) 33.7 Brewster % (Auto) 5.4 Eos % (Auto) 0.3 Baso % (Auto) 0.4 Neut # (Auto) 5.5 Lymph # (Auto) 3.1 Brewster # (Auto) 0.5 Eos # (Auto) 0.0 Baso # (Auto) 0.0 WBC Differential . Differential Comment Auto diff final Sodium Potassium Chloride Carbon Dioxide Anion Gap BUN Creatinine Estimated GFR POC Glucose 146 H 279 H Random Glucose Calcium Microbiology 11/28/17 05:12 Blood - Peripheral Aerobic Blood Culture - Final No growth in 5 days 11/28/17 05:12 Blood - Peripheral Anaerobic Blood Culture - Final No growth in 5 days 11/28/17 05:10 Blood - Peripheral Aerobic Blood Culture - Final No growth in 5 days 11/28/17 05:10 Blood - Peripheral Anaerobic Blood Culture - Final Bifidobacterium species Assessment and Plan - Assessment (1) Cellulitis of foot, right Code(s): L03.115 - Cellulitis of right lower limb Status: Acute (2) Hyponatremia Code(s): E87.1 - Hypo-osmolality and hyponatremia Status: Acute (3) Hypokalemia Code(s): E87.6 - Hypokalemia Status: Acute (4) 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 Uncontrolled Diabetes mellitus with recent HGB A1c of 13. Pseudohyponatremia as BS is 1037 on admission. Failure to thrive Acute metabolic disturbance MARIO Hypotension Depression Poss UTI Bacteremia. 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 Consult wound care for eval and management. Appreciate wound care recommendations. Also podiatry consulted for eschars left leg and toes on the left lower leg. Nausea, vomiting, decreased appetite and decreased PO intake. Patient with diabetes and likely with gastroparesis. Consult GI appreciate recommendations. Patient declines EGD. Plan for Gastric emptying scan . 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 Received 2L bolus IVF with NS, continue NS IVF monitor closely labs. Monitor VS closely Monitor BMP frequently. Monitor on telemetry Start Rocephin IV for poss UTI. Urine cx, blood cx are pending. Patient with previous osteomyelitis, s/p recent AKA. Patient left AA on last admission Severe protein calorie malnutrition prealbumin of 9, low albumin as well. Consult dietitian for dietary supplement. Consult psych for eval as patient is depressed. Appreciate input. Consult posiatry appreciate recommendations: patient with status post below- knee amputation to right lower extremity with left digital ulcerations noted to digits 2,3,4 dorsally X-ray to be obtained to rule out any bony involvement Daily wound care dressing orders to be placed, Betadine with dry sterile dressing, check ESR CRP We will continue to follow patient and follow-up on x-ray Antiemetics as need for nausea/ vomiting Consult GI appreciate recommendations. Patient declines EGD and empting study scan. Patient is with persistent nausea and vomiting Bacteremia. 1 out of 4 bottles with pleomorphic for gram-positive rods possible contaminant however will consult infectious disease for evaluation DVTppx scd/teds. lovenox Discussed with the patient, nurse. Discharge plan pending improvement. Patient was nausea and vomiting decreased appetite failure to thrive severe protein calorie malnutrition. Refusing procedures and imaging recommended by GI. Patient also with bacteremia 1 out of 4 bottles with pleomorphic for gram-positive rods possible contaminant however will consult infectious disease for evaluation.
[2017-12-04 05:17] VITALS: RESP 18
[2017-12-04] MEDS: Insulin NovoLOG Aspart Correctional Sugar Inj SQ SCH ×2 (08:16→13:49)
[2017-12-04] MEDS: Enoxaparin Inj 40 MG/0.4 ML Syringe SQ SCH (08:17)
[2017-12-04] MEDS: Insulin Detemir Inj 1,000 UNIT/10 ML Vial SQ SCH (08:17)
[2017-12-04] MEDS: Senna/Docusate Sodium 8.6/50 MG Tablet PO SCH (08:23)
[2017-12-04] MEDS: Collagenase Oint 30 GM Tube TOPICAL SCH (08:23)
--- NOTE | 2017-12-04 10:14 | P.DS ---
Date of admission: 11/28/17 07:31 Primary care physician: UNKNOWN Brief History from admission: Patient is a 52-year-old female presents emergency department for 4-day history of generalized weakness. Patient states she has been out of her insulin for the past 4 days as well. Also complains of buttock pain more precisely sacrum pain from a decubitus ulcer. Patient fairly somnolent on arrival, denies any chest pain shortness of breath abdominal pain nausea or vomiting. 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 She was also diagnosed with osteomyelitis in this wound she had signed out AGAINST MEDICAL ADVICE at the end of this hospitalization to go take care of a family member. She had been admitted several times over the summer with similar issues of the right heel and signed out AGAINST MEDICAL ADVICE several times as well. States symptoms are severe, and her sacrum, associated with hyperglycemia, context and associated signs symptoms as above. 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 [Santyl] 1 applicatio TOPICAL DAILY 14 Days g duloxetine 30 mg PO DAILY #30 cap hydrocodone-acetaminophen 1 tab PO Q6H PRN #12 tab PRN Reason: pain 2-10 nut.tx.gluc.intol,lac-free,soy [Glucerna 1.2 Mark] 1 can PO BID #60 ml promethazine 25 mg PO Q4H PRN #60 tab PRN Reason: NAUSEA/VOMITING DS: Summary Hospital Course: Severe hyperglycemia with BS of 1037 on admission. Uncontrolled Diabetes mellitus with recent HGB A1c of 13. Pseudohyponatremia as BS is 1037 on admission. Failure to thrive Acute metabolic disturbance MARIO Hypotension Depression Poss UTI Bacteremia. 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 Consult wound care for eval and management. Appreciate wound care recommendations. Also podiatry consulted for eschars left leg and toes on the left lower leg. Nausea, vomiting, decreased appetite and decreased PO intake. Patient with diabetes and likely with gastroparesis. Consult GI appreciate recommendations. Patient declines EGD. Plan for Gastric emptying scan . 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 Received 2L bolus IVF with NS, continue NS IVF monitor closely labs. Monitor VS closely Monitor BMP frequently. Monitor on telemetry Start Rocephin IV for poss UTI. Urine cx, blood cx are pending. Patient with previous osteomyelitis, s/p recent AKA. Patient left AA on last admission Severe protein calorie malnutrition prealbumin of 9, low albumin as well. Consult dietitian for dietary supplement. Consult psych for eval as patient is depressed. Appreciate input. Consult posiatry appreciate recommendations: patient with status post below- knee amputation to right lower extremity with left digital ulcerations noted to digits 2,3,4 dorsally X-ray to be obtained to rule out any bony involvement Daily wound care dressing orders to be placed, Betadine with dry sterile dressing, check ESR CRP We will continue to follow patient and follow-up on x-ray Antiemetics as need for nausea/ vomiting Consult GI appreciate recommendations. Patient declines EGD and empting study scan. Patient is with persistent nausea and vomiting Bacteremia. 1 out of 4 bottles with pleomorphic for gram-positive rods possible contaminant however will consult infectious disease for evaluation Patient with improvement. Patient with nausea and vomiting decreased appetite failure to thrive severe protein calorie malnutrition. Refusing procedures and imaging recommended by GI. Patient also with bacteremia 1 out of 4 bottles with pleomorphic for gram-positive rods possible contaminant however will consult infectious disease for evaluation. Per ID likely contaminant no need or abx Patient improved able to tolerate food and eating better. DC home with home health in stable condition to follow up as OP with PCP and consultants. [employer] Prescription Drug Monitoring Database has been queried and verified prior to prescribing the controlled substance. Acute pain exception. This patient has normal, predicted, physiological, and time limited response to an adverse mechanical stimulus associated with surgery, trauma, or acute illness as described in my notes. There is a lack of alternative treatment options other than to include the prescribed narcotic treatment for this condition. - Time Spent with Patient Total time spent providing and/or coordinating discharge services: Greater than 30 minutes - Quality: VTE Deep Vein Thrombosis/Pulmonary Embolism Present on Admission: No Exam Vital signs: Vital Signs 12/03/17 12:00 12/03/17 16:00 12/03/17 20:00 Temperature 98.2 F 98.0 F 98.1 F Pulse Rate 86 87 93 H Respiratory Rate 18 18 Blood Pressure 117/64 104/66 117/60 Pulse Oximetry 99 99 98 12/03/17 23:59 12/04/17 00:00 12/04/17 04:00 Temperature 98.6 F 97.8 F Pulse Rate 86 85 85 Respiratory Rate 18 Blood Pressure 104/59 L 123/69 Pulse Oximetry 98 99 12/04/17 08:00 Temperature Pulse Rate 86 Respiratory Rate Blood Pressure Pulse Oximetry Intake & Output 12/03/17 12/04/17 12/04/17 18:59 06:59 18:59 Weight 57.1 kg Other: # Voids 1 Date of Last Bowel Movement 12/02/17 12/03/17 # Bowel Movements 3 Results Procedures completed during hospitalization: none Labs on day of discharge: Labs from last 24 hours 12/03/17 12/03/17 12/03/17 20:23 17:22 12:30 POC Glucose 208 H 261 H 279 H - Impressions ITS Impressions Foot X-Ray 11/29/17 17:38 CONCLUSION: Questionable findings described above in the fifth proximal phalanx and first proximal phalanx. It can be correlated these are potential sites of injury. Discharge Plan - Discharge Disposition Patient Disposition: /Home Health Service - Discharge Condition Condition: Stable - Discharge Order Discharge Orders: Discharge Order (Routine); Ordered 12/04/17 Ordered By: Neeta Tena - Discharge Details Anticipated Discharge Date: 12/04/17 - Physicians Team Primary Care Provider: UNKNOWN, Attending Provider: Neeta Tena Other Providers: Dwight Kothari MD ; Kimberly York DPM ; Laverne Blas MD ; Chapincito Song MD
--- NOTE | 2017-12-04 10:18 | P.DCO ---
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 My clinical findings support the need for the requested home health care services because: Limited mobility due to disease progression, Patient has SOB, Deconditioned with increased weakness I certify that my clinical findings support that this patient is homebound because: Post-op weakness, Unsteady gait/balance
[2017-12-04 11:01] VITALS: BP 139/63; TEMP 97.9; O2SAT 97
[2017-12-04 12:53] VITALS: PULSE 98
[2017-12-05 15:51] LABS: Alk Phos Total Isoenzymes 322 U/L (33-130)
[2017-12-06 03:50] LABS: Alk Phos Bone Isoenzymes 32 % (28-66); Alk Phos Intestine Isoenzymes 0 % (1-24); Alk Phos Liver Isoenzymes 68 % (25-69); Alk Phos MacroHep Isoenzyme ND % (()); Alk Phos Placental Isoenzymes 0 % (0)
== END 2017-12-04 14:45 | disposition home health service (06) ==
LOC: NEPE 04:35 → NEDA 07:31 → HIMC 08:46 → N04 11-30 18:18
PROVIDERS: ADMIT Hospitalist; ATTEND Hospitalist

== ENCOUNTER 2017-12-15 06:13 | Inpatient (IN) ==
[2017-12-15] MEDS ORDERED: Acetaminophen 325 MG Tablet PO ONE (07:05)
[2017-12-15] MEDS ORDERED: Sod Chloride 0.9% Inj 1,000 ML IV.SIG ONE (07:05)
--- NOTE | 2017-12-15 07:14 | ED ---
HPI General Chief complaint: Back Pain/Injury Stated complaint: back pain Time Seen by Provider: 12/15/17 06:57 Source: patient Mode of arrival: EMS Limitations: no limitations History of Present Illness HPI Narrative: The patient is a 52-year-old female who presents to the emergency department via EMS for body aches, left hip and left lower extremity pain after falling, and generalized weakness. The patient has a history of diabetes, states she took her Levemir 65 units last night. The patient's blood sugar prior to arrival by EMS was greater than 500. The patient has a history of previous right BKA and normally mobilizes with a wheelchair. However, the patient states her wheelchair does not work in the house and when she got up at 2 AM to go to the bathroom she subsequently fell. The patient states she was lightheaded and dizzy prior to falling and fell on her left hip and left lower extremity. The patient states she lives with her , however, he works 13 hours a day and was not at home when she fell. She denies any head injury or LOC with the fall. She currently complains of diffuse body aches, generalized weakness, and left leg pain. Symptoms are moderate. She denies any associated chest pain, shortness of breath, nausea, vomiting, or abdominal pain. MD Complaint: Reports generalized weakness, lack of energy and difficulty walking Onset (ago): hour(s) Duration: constant Location: Reports LLE Migration: Reports none Severity: moderate Severity scale (1-10): 5 Quality: Reports aching Relieving factors: none Exacerbating factors: movement Context: Reports depression Associated symptoms: Reports myalgias Related Data Home Medications Medication Instructions Recorded Confirmed insulin asp prt-insulin aspart 1 sliding scale dose SUBCUT UD 11/28/17 12/15/17 [Novolog Mix 70-30 U-100 Insuln] insulin detemir U-100 [Levemir 15 unit SUBCUT QPM 11/28/17 12/15/17 U-100 Insulin] Previous Rx's Medication Instructions Recorded [id number] 1 bar PO BID #30 each 12/04/17 [Alek (with collagen)] collagenase clostridium histo. 1 applicatio TOPICAL DAILY 14 Days 12/04/17 [Santyl] g duloxetine 30 mg PO DAILY #30 cap 12/04/17 hydrocodone-acetaminophen 1 tab PO Q6H PRN #12 tab 12/04/17 nut.tx.gluc.intol,lac-free,soy 1 can PO BID #60 ml 12/04/17 [Glucerna 1.2 Mark] promethazine 25 mg PO Q4H PRN #60 tab 12/04/17 Allergies Allergy/AdvReac Type Severity Reaction Status Date / Time No Known Allergies Allergy Verified 12/15/17 07:54 Review of Systems ROS: all other systems reviewed are negative COUNT INCLUDES [facility] Medical History Medical History Decubital ulcer (Acute) Benign hypertension (Acute) Diabetes (Acute) Hepatitis C virus (Acute) Osteomyelitis (Acute) Surgical History Surgical History Hx of AKA (above knee amputation) (Acute) Previous section (Acute) Social History Social History Substance History: No History of Abuse Second Hand Smoke Exposure: No Smoking Status: Current some day smoker Tobacco Type: Cigarettes Packs Per Day: 2 Cigarettes Per Day: 40.0 Smoking End Date: 6 months ago How Often Do You Have a Drink Containing Alcohol: Never Immunization History Tetanus Immunization: Unable to Assess Exam Narrative Exam Narrative: GENERAL: Awake, alert, pleasant 52-year-old female who appears older than her stated age and is in no acute respiratory distress. SKIN: Focused skin assessment warm/dry. HEAD: Atraumatic. Normocephalic. EYES: Pupils equal and round. 3 mm bilateral and reactive. ENT: No nasal bleeding or discharge. Dry mucous membranes, no visible teeth. NECK: Trachea midline. No JVD. CARDIOVASCULAR: Regular, tachycardic with a heart rate of 105. RESPIRATORY: No accessory muscle use. Clear to auscultation. Breath sounds equal bilaterally. GASTROINTESTINAL: Abdomen soft, non-tender, nondistended. No rebound tenderness , guarding, rigidity. MUSCULOSKELETAL: Right BKA. Left lower extremity reveals tenderness of the left hip with an area of ecchymosis. Petechiae noted over the medial left thigh. Some chronic ulcerative changes over the dorsal aspect of toes 2, 3, and 4 with no visible drainage. Upper extremities reveal no obvious deformity. Back: No tenderness over the thoracic or lumbar vertebrae. Stage IV sacral decubitus ulcer with mild surrounding erythema. NEUROLOGICAL: Awake and alert. No obvious cranial nerve deficits. Motor grossly within normal limits. Normal speech. Nonfocal. Oriented x3. PSYCHIATRIC: Flat affect. Course Initial Documented Vital Signs Temperature 97.5 F L 12/15/17 06:46 Pulse Rate 100 H 12/15/17 06:46 Respiratory Rate 20 12/15/17 06:46 Blood Pressure 96/50 L 12/15/17 06:46 Pulse Oximetry 100 12/15/17 06:46 Last Documented Vital Signs Temperature 97.5 F L 12/15/17 06:46 Pulse Rate 97 H 12/15/17 09:11 Respiratory Rate 16 12/15/17 09:11 Blood Pressure 101/56 L 12/15/17 09:11 Pulse Oximetry 100 12/15/17 09:11 Critical Care Time Critical Care Time: Yes Total Critical Care Time: 40 Attestation: Aggregate critical care time was 40 minutes. Time to perform other separately billable procedures was not included in the critical care time. My time did not include minutes spent treating any other patients simultaneously or on activities that did not directly contribute to the patient's treatment. The services I provided to this patient were to treat and/or prevent clinically significant deterioration that could result in: Sepsis, septic shock, necrotizing fasciitis, . I provided critical care services requiring my management, as noted below: Chart data review, documentation time, medication orders and management, vital sign assessments/reviewing monitor data, ordering and reviewing lab tests, ordering and interpreting/reviewing x-rays and diagnostic studies, care of the patient and discussion of the patient with the admitting physicians. Medical Decision Making MDM Narrative Medical decision making narrative: IV was established, labs are drawn and sent, and the patient was placed on cardiac telemetry monitoring and continuous pulse oximetry monitoring. EKG was ordered and interpreted. Pelvis x-ray and x-ray of the left femur were obtained. The patient was administered Tylenol for pain and 1 L of IV fluids. Bedside Accu-Chek was obtained and VBG and beta hydroxybutyrate were sent to lab. Every hour blood sugars were ordered. VBG revealed a pH is 7.431 with bicarb of 24.1, therefore, not DKA. Lactic acid is mildly elevated at 3.1. X-ray does reveal subcutaneous air around the left hip and pelvis, therefore, CT the pelvis with IV contrast was ordered to evaluate for possible necrotizing fasciitis as patient is a diabetic with blood glucose greater than 600. Another etiology could be the sacral decubitus ulcer with entrance of air into the pelvis via the sacral decubitus ulcer, however, the sacral decubitus ulcer is only 2 cm in diameter. I discussed the CT findings with the radiologist, after discussion it was agreed I we discussed the patient with the orthopedic and/or general surgeon as patient may need evaluation and debridement. The patient was administered Zosyn and vancomycin. The patient will be admitted to the intensive surgical care unit. I discussed the patient with Dr. Vazquez who agrees with admission. The orthopedic surgeon was in the operating room and I was unable to speak directly with orthopedic surgeon, therefore, the on-call general surgeon was paged. I discussed the patient with Dr. Bazzi at 10:35 AM who was in the OR and will evaluate the patient after his current case. Medical Screen Exam Complete: Yes Emergency Medical Condition: Yes Differential Diagnosis Differential Diagnosis: Differential diagnosis includes hyperglycemia, dehydration, DKA, acute kidney injury, rhabdomyolysis, pelvic fracture, hip fracture, femur fracture, hypokalemia, depression, poor social situation. Lab Data Result diagrams: 12/15/17 06:45 12/15/17 06:45 Lab Results 12/15/17 12/15/17 12/15/17 Range/Units 06:45 06:45 06:45 WBC 10.2 (4.0-11.0) th/mm3 RBC 3.13 L (4.00-5.30) mil/mm3 Hgb 8.8 L (11.6-15.3) gm/dL Hct 26.6 L (35.0-46.0) % MCV 84.9 (80.0-100.0) fL MCH 28.0 (27.0-34.0) pg MCHC 33.1 (32.0-36.0) % RDW 14.7 (11.6-17.2) % Plt Count 235 (150-450) th/mm3 MPV 9.3 (7.0-11.0) fL Neut % (Auto) 90.0 H (16.0-70.0) % Lymph % (Auto) 7.6 L (9.0-44.0) % [place] % (Auto) 1.2 (0.0-8.0) % Eos % (Auto) 0.9 (0.0-4.0) % Baso % (Auto) 0.3 (0.0-2.0) % Neut # (Auto) 9.2 H (1.8-7.7) th/mm3 Lymph # (Auto) 0.8 L (1.0-4.8) th/mm3 [place] # (Auto) 0.1 (0.0-0.9) th/mm3 Eos # (Auto) 0.1 (0.0-0.4) th/mm3 Baso # (Auto) 0.0 (0.0-0.2) th/mm3 WBC Differential . Differential Comment Auto diff final Puncture Site Patient Temperature VBG pH (7.360-7.400) VBG pCO2 (44-48) mmHG VBG pO2 (35-40) mmHG VBG HCO3 (22-26) mmol/L VBG O2 Saturation (70-76) % VBG O2 Content (9.0-17.0) Vol % VBG Base Excess (-2-2) mmol/L VBG Carboxyhemoglobin (0-4) % VBG Methemoglobin (0-2) % Hemoglobin (12.0-16.0) G/DL Inspired O2 % Critical Value Sodium 127 L (136-145) meq/L Potassium 3.6 (3.5-5.1) meq/L Chloride 93 L (98-107) meq/L Carbon Dioxide 22.5 (21.0-32.0) meq/L Anion Gap 12 (5-15) meq/L BUN 39 H (7-18) mg/dL Creatinine 1.42 H (0.50-1.00) mg/dL Estimated GFR 39 L (>89) mL/min POC Glucose (68-110) mg/dl Random Glucose 610 H* (74-106) mg/dL Lactic Acid 3.1 H (0.4-2.0) mmol/L Calcium 7.3 L* (8.5-10.1) mg/dL Prot Corrected Calcium 7.5 L (8.5-10.1) mg/dL Magnesium 1.9 (1.5-2.5) mg/dL Total Bilirubin 0.5 (0.2-1.0) mg/dL AST 18 (15-37) U/L ALT 14 (10-53) U/L Alkaline Phosphatase 536 H (45-117) U/L Total Creatine Kinase 74 (26-192) U/L Troponin I Less than 0.02 L (0.02-0.05) ng/mL Total Protein 6.8 (6.4-8.2) g/dL Albumin 1.3 L (3.4-5.0) g/dL Lipase 28 L (73-393) U/L Beta-Hydroxybutyric Acd 0.31 (0.00-0.39) mmol/L Urine Color (Yellw/Straw) Urine Clarity (Clear) Urine pH (5.0-8.5) Ur Specific [place] (1.002-1.035) Urine Protein (Neg-Trace) mg/dL Urine Glucose (UA) (Negative) mg/dL Urine Ketones (Negative) mg/dL Urine Occult Blood (Negative) Urine Nitrate (Negative) Urine Bilirubin (Negative) Urine Urobilinogen (Less than 2) mg/dL Ur Leukocyte Esterase (Negative) Urine RBC (0-3) /hpf Urine WBC (0-5) /hpf Urine Yeast (None) /hpf Micro UA Comment Ur Microscopic Review Urine Culture Comments Blood Type Antibody Screen 12/15/17 12/15/17 12/15/17 Range/Units 06:45 07:04 07:33 WBC (4.0-11.0) th/mm3 RBC (4.00-5.30) mil/mm3 Hgb (11.6-15.3) gm/dL Hct (35.0-46.0) % MCV (80.0-100.0) fL MCH (27.0-34.0) pg MCHC (32.0-36.0) % RDW (11.6-17.2) % Plt Count (150-450) th/mm3 MPV (7.0-11.0) fL Neut % (Auto) (16.0-70.0) % Lymph % (Auto) (9.0-44.0) % Cascade % (Auto) (0.0-8.0) % Eos % (Auto) (0.0-4.0) % Baso % (Auto) (0.0-2.0) % Neut # (Auto) (1.8-7.7) th/mm3 Lymph # (Auto) (1.0-4.8) th/mm3 [place] # (Auto) (0.0-0.9) th/mm3 Eos # (Auto) (0.0-0.4) th/mm3 Baso # (Auto) (0.0-0.2) th/mm3 WBC Differential Differential Comment Puncture Site Line Patient Temperature 98.6 VBG pH 7.43 H (7.360-7.400) VBG pCO2 37 L (44-48) mmHG VBG pO2 29 L* (35-40) mmHG VBG HCO3 24 (22-26) mmol/L VBG O2 Saturation 49 L (70-76) % VBG O2 Content 6.1 L (9.0-17.0) Vol % VBG Base Excess 0.3 (-2-2) mmol/L VBG Carboxyhemoglobin 2.4 (0-4) % VBG Methemoglobin 0.6 (0-2) % Hemoglobin 8.8 L (12.0-16.0) G/DL Inspired O2 21 % Critical Value Yes Sodium (136-145) meq/L Potassium (3.5-5.1) meq/L Chloride (98-107) meq/L Carbon Dioxide (21.0-32.0) meq/L Anion Gap (5-15) meq/L BUN (7-18) mg/dL Creatinine (0.50-1.00) mg/dL Estimated GFR (>89) mL/min POC Glucose Greater than 600 H* (68-110) mg/dl Random Glucose (74-106) mg/dL Lactic Acid (0.4-2.0) mmol/L Calcium (8.5-10.1) mg/dL Prot Corrected Calcium (8.5-10.1) mg/dL Magnesium (1.5-2.5) mg/dL Total Bilirubin (0.2-1.0) mg/dL AST (15-37) U/L ALT (10-53) U/L Alkaline Phosphatase (45-117) U/L Total Creatine Kinase (26-192) U/L Troponin I (0.02-0.05) ng/mL Total Protein (6.4-8.2) g/dL Albumin (3.4-5.0) g/dL Lipase (73-393) U/L Beta-Hydroxybutyric Acd (0.00-0.39) mmol/L Urine Color (Yellw/Straw) Urine Clarity (Clear) Urine pH (5.0-8.5) Ur Specific [place] (1.002-1.035) Urine Protein (Neg-Trace) mg/dL Urine Glucose (UA) (Negative) mg/dL Urine Ketones (Negative) mg/dL Urine Occult Blood (Negative) Urine Nitrate (Negative) Urine Bilirubin (Negative) Urine Urobilinogen (Less than 2) mg/dL Ur Leukocyte Esterase (Negative) Urine RBC (0-3) /hpf Urine WBC (0-5) /hpf Urine Yeast (None) /hpf Micro UA Comment Ur Microscopic Review Urine Culture Comments Blood Type O Negative Antibody Screen Negative 12/15/17 12/15/17 12/15/17 Range/Units 08:20 09:06 10:08 WBC (4.0-11.0) th/mm3 RBC (4.00-5.30) mil/mm3 Hgb (11.6-15.3) gm/dL Hct (35.0-46.0) % MCV (80.0-100.0) fL MCH (27.0-34.0) pg MCHC (32.0-36.0) % RDW (11.6-17.2) % Plt Count (150-450) th/mm3 MPV (7.0-11.0) fL Neut % (Auto) (16.0-70.0) % Lymph % (Auto) (9.0-44.0) % [place]ascade % (Auto) (0.0-8.0) % Eos % (Auto) (0.0-4.0) % Baso % (Auto) (0.0-2.0) % Neut # (Auto) (1.8-7.7) th/mm3 Lymph # (Auto) (1.0-4.8) th/mm3 [place] # (Auto) (0.0-0.9) th/mm3 Eos # (Auto) (0.0-0.4) th/mm3 Baso # (Auto) (0.0-0.2) th/mm3 WBC Differential Differential Comment Puncture Site Patient Temperature VBG pH (7.360-7.400) VBG pCO2 (44-48) mmHG VBG pO2 (35-40) mmHG VBG HCO3 (22-26) mmol/L VBG O2 Saturation (70-76) % VBG O2 Content (9.0-17.0) Vol % VBG Base Excess (-2-2) mmol/L VBG Carboxyhemoglobin (0-4) % VBG Methemoglobin (0-2) % Hemoglobin (12.0-16.0) G/DL Inspired O2 % Critical Value Sodium (136-145) meq/L Potassium (3.5-5.1) meq/L Chloride (98-107) meq/L Carbon Dioxide (21.0-32.0) meq/L Anion Gap (5-15) meq/L BUN (7-18) mg/dL Creatinine (0.50-1.00) mg/dL Estimated GFR (>89) mL/min POC Glucose Greater than 600 H* 513 H* (68-110) mg/dl Random Glucose (74-106) mg/dL Lactic Acid (0.4-2.0) mmol/L Calcium (8.5-10.1) mg/dL Prot Corrected Calcium (8.5-10.1) mg/dL Magnesium (1.5-2.5) mg/dL Total Bilirubin (0.2-1.0) mg/dL AST (15-37) U/L ALT (10-53) U/L Alkaline Phosphatase (45-117) U/L Total Creatine Kinase (26-192) U/L Troponin I (0.02-0.05) ng/mL Total Protein (6.4-8.2) g/dL Albumin (3.4-5.0) g/dL Lipase (73-393) U/L Beta-Hydroxybutyric Acd (0.00-0.39) mmol/L Urine Color Yellow (Yellw/Straw) Urine Clarity Turbid H (Clear) Urine pH 5.0 (5.0-8.5) Ur Specific [place] 1.015 (1.002-1.035) Urine Protein Negative (Neg-Trace) mg/dL Urine Glucose (UA) 500 or greater (Negative) mg/dL Urine Ketones Negative (Negative) mg/dL Urine Occult Blood Small H (Negative) Urine Nitrate Negative (Negative) Urine Bilirubin Negative (Negative) Urine Urobilinogen 2.0 H (Less than 2) mg/dL Ur Leukocyte Esterase Moderate H (Negative) Urine RBC 139 H (0-3) /hpf Urine WBC 3 (0-5) /hpf Urine Yeast Many H (None) /hpf Micro UA Comment Cath-culture not ind Ur Microscopic Review Not Reportable Urine Culture Comments Cath-cult not ind Blood Type Antibody Screen Imaging Data Radiologist's impression: Femur X-Ray 12/15/17 07:05 CONCLUSION: No fracture is identified. There is extensive soft tissue air in the right gluteal region and extending into the proximal and mid posterior thigh. The soft tissue air suggests an open wound. Pelvis X-Ray 12/15/17 07:05 CONCLUSION: No fracture is identified. However, there is extensive soft tissue air in the left gluteal region and left proximal thigh. Pelvis CT 12/15/17 07:52 CONCLUSION: 1. No fracture is identified. 2. Extensive subcutaneous and soft tissue gas bilaterally, left greater than right. It is most severe in the left gluteal region and extends into the proximal posterior thigh. The soft tissue air dissects through the gluteal musculature. There is adjacent subcutaneous edema. ECG Data EKG Prior to Arrival: No Attestation: I personally reviewed and interpreted this ECG as follows: Interpretation: EKG reveals normal sinus rhythm with a rate of 90, no ischemic changes or ectopy noted. Discharge Plan Discharge Disposition Patient Disposition: 30 Still Patient Discharge Condition Condition: Serious Discharge Details Diagnosis: Acute hyperglycemia, Fasciitis Physicians Team ED Provider: Prashanth Last Primary Care Provider: UNKNOWN, Attending Provider: Jesse Vazquez Status ED Status: Admitted Patient
[2017-12-15 07:31] LABS: Baso % (Auto) 0.3 % (0.0-2.0); Eos # (Auto) 0.1 th/mm3 (0.0-0.4); Eos % (Auto) 0.9 % (0.0-4.0); Hematocrit 26.6 % (35.0-46.0); Hemoglobin 8.8 gm/dL (11.6-15.3); Lymph # (Auto) 0.8 th/mm3 (1.0-4.8); Lymph % (Auto) 7.6 % (9.0-44.0); Mean Corpuscular HGB Conc 33.1 % (32.0-36.0); Mean Corpuscular Volume 84.9 fL (80.0-100.0); Mean Platelet Volume 9.3 fL (7.0-11.0); Mono # (Auto) 0.1 th/mm3 (0.0-0.9); Mono % (Auto) 1.2 % (0.0-8.0); Neut # (Auto) 9.2 th/mm3 (1.8-7.7); Platelet Count 235 th/mm3 (150-450); Red Blood Count 3.13 mil/mm3 (4.00-5.30); Red Cell Distribution Width 14.7 % (11.6-17.2); White Blood Count 10.2 th/mm3 (4.0-11.0)
[2017-12-15 07:50] LABS: VBG Base Excess 0.3 mmol/L (-2-2); VBG Blood Gas Oxygen Content 6.1 Vol % (9.0-17.0); VBG PCO2 37 mmHG (44-48); VBG PH 7.43 (7.360-7.400); VBG PO2 29 mmHG (35-40)
--- NOTE | 2017-12-15 07:52 | XR ---
EXAM DATE: 12/15/2017 7:45 AM EDT AGE/SEX: 52 years / Female INDICATIONS: Trauma. Fall. Left posterior hip pain. CLINICAL DATA: This is the patient's initial encounter. Patient reports that signs and symptoms have been present for 1 day and indicates a pain score of 10/10. MEDICAL/SURGICAL HISTORY: . Hypertension. Hepatitis C. Diabetes mellitus type II . . Right low er limb amputation. [place] [facility] [place]. . FINDINGS: 5 views of the left femur demonstrate no fracture or dislocation. Mineralization is normal. Knee join t demonstrates no acute finding and visualized left pelvis demonstrates no acute abnormality. There i s extensive soft tissue air in the left gluteal region and proximal and mid thigh posteriorly. There is soft tissue swelling laterally. CONCLUSION: No fracture is identified. There is extensive soft tissue air in the right gluteal region and extendi ng into the proximal and mid posterior thigh. The soft tissue air suggests an open wound. Electronically signed by: Derek Grover MD 12/15/2017 7:50 AM EDT
--- NOTE | 2017-12-15 07:53 | XR ---
EXAM DATE: 12/15/2017 7:46 AM EDT AGE/SEX: 52 years / Female INDICATIONS: Trauma. Fall. Left posterior hip pain. CLINICAL DATA: This is the patient's initial encounter. Patient reports that signs and symptoms have been present for 1 day and indicates a pain score of 10/10. MEDICAL/SURGICAL HISTORY: . Hypertension. Hepatitis C. Diabetes mellitus type II . Right lowe r limb amputation. COMPARISON: No prior exams available for comparison. FINDINGS: AP view of the pelvis demonstrates no fracture or dislocation. Hip joints and sacroiliac joints demon strate no abnormality. There is extensive left gluteal region and proximal left thigh soft tissue air . No concerning radiopaque foreign body is identified. CONCLUSION: No fracture is identified. However, there is extensive soft tissue air in the left gluteal region and left proximal thigh. Electronically signed by: Derek Grover MD 12/15/2017 7:52 AM EDT
[2017-12-15] MEDS ORDERED: fentaNYL Citrate Inj 100 MCG/2 ML Ampul IV.PUSH ONE ×2 (07:59→12:30)
[2017-12-15 08:06] LABS: Alanine Aminotransferase 14 U/L (10-53); Albumin 1.3 g/dL (3.4-5.0); Alkaline Phosphatase 536 U/L (45-117); Anion Gap 12 meq/L (5-15); Aspartate Aminotransferase 18 U/L (15-37); Beta Hydroxybutyric Acid 0.31 mmol/L (0.00-0.39); Blood Urea Nitrogen 39 mg/dL (7-18); Calcium 7.3 mg/dL (8.5-10.1); Carbon Dioxide 22.5 meq/L (21.0-32.0); Chloride 93 meq/L (98-107); Glomerular Filtration Rate 39 mL/min (>89); Lipase 28 U/L (73-393); Magnesium 1.9 mg/dL (1.5-2.5); Potassium 3.6 meq/L (3.5-5.1); Sodium 127 meq/L (136-145); Total Protein 6.8 g/dL (6.4-8.2)
[2017-12-15 08:13] LABS: Creatine Kinase 74 U/L (26-192); Glucose,Random 610 mg/dL (74-106)
[2017-12-15] MEDS: Sod Chloride 0.9% Inj 1,000 ML IV.SIG SCH ×2 (08:59→11:12)
--- NOTE | 2017-12-15 09:14 | CT ---
EXAM DATE: 12/15/2017 9:05 AM EDT AGE/SEX: 52 years / Female INDICATIONS: Trauma. Left hip pain status post fall. CLINICAL DATA: This is the patient's initial encounter. Patient reports that signs and symptoms have been present for 1 day and indicates a pain score of 10/10. MEDICAL/SURGICAL HISTORY: Hepatitis C. Diabetes. Hypertension. section. Right above knee amputation RADIATION DOSE: 12.52 CTDI (mGy) COMPARISON: No prior exams available for comparison. TECHNIQUE: Multiple contiguous helical axial images were obtained through pelvis following bolus inf usion of 50 ml Visipaque 320 (iodixanol) nonionic water-soluble contrast as a single exam dose. Im ages were obtained using multiple row detector helical technique. . Using automated exposure control and adjustment of the mA and/or kV according to patient size, radiation dose was kept as low as reaso nably achievable to obtain optimal diagnostic quality images. DICOM format image data is available e lectronically for review and comparison. FINDINGS: Bowel/Mesentery: The visualized small and large bowel demonstrate no acute abnormality. Bladder: No wall thickening or mass. There is air within the bladder lumen. Retroperitoneum: No lymphadenopathy or acute vascular abnormality. There is atherosclerotic disease of the pelvic arterial vessels. Reproductive Organs: Uterus has lobulated contour. Inguinal: No lymphadenopathy or hernia. Bony Structures: No acute osseous abnormality is identified. No fracture is identified. There is deg enerative disc disease at L5-S1. Other: Extensive soft tissue and subcutaneous gas is present bilaterally, left greater than right. Th e soft tissue gas dissects of into the intermuscular planes of the left gluteal muscles and left addu ctor musculature and extends into the proximal posterior thigh around the hamstrings musculature. The re is also subcutaneous edema along the left gluteal region. CONCLUSION: 1. No fracture is identified. 2. Extensive subcutaneous and soft tissue gas bilaterally, left greater than right. It is most severe in the left gluteal region and extends into the proximal posterior thigh. The soft tissue air dissec ts through the gluteal musculature. There is adjacent subcutaneous edema. Electronically signed by: Derek Grover MD 12/15/2017 9:12 AM EDT
[2017-12-15] MEDS ORDERED: Piperacil/Tazo 4.5 GM Premix 4.5 GM/100 ML BAG IV.SIG ONE (09:15)
[2017-12-15 09:33] LABS: Bilirubin,Urine Negative (Negative); Clarity,Urine Turbid (Clear); Color,Urine Yellow (Yellw/Straw); Glucose,Urine (UA) 500 or Greater mg/dL (Negative); Leukocyte Esterase,Urine Moderate (Negative); Nitrite,Urine Negative (Negative); Specific Gravity,Urine 1.015 (1.002-1.035)
[2017-12-15] MEDS ORDERED: Insulin Regular (For Infusion) 100 UNIT in Sodium Chlor 0.9% Inj 99 ML IV.CONT PRN (09:41)
[2017-12-15] MEDS ORDERED: Sod Chloride 0.9% Inj 1,000 ML IV.SIG SCH ×2 (09:45→11:15)
[2017-12-15] MEDS ORDERED: Vancomycin Inj 1,000 MG in Sodium Chlor 0.9% Inj 250 ML IV.SIG SCH (10:00)
[2017-12-15] MEDS ORDERED: Vancomycin Inj 1 GM/200 ML PIGGYBACK IV.SIG SCH (10:00)
[2017-12-15] MEDS ORDERED: Bisacodyl 10 MG Supp RECTAL PRN (10:24)
[2017-12-15] MEDS ORDERED: HYDROmorphone PF Inj 1 MG/ML Ampul IV.PUSH PRN (10:24)
[2017-12-15] MEDS ORDERED: Sod Chloride 0.9% Inj 1,000 ML IV.CONT SCH (10:30)
[2017-12-15] MEDS ORDERED: Midazolam Inj 5 MG/ML 1 ML Vial ONE (11:30)
[2017-12-15] MEDS ORDERED: Norepinephrine Inj 4 MG/4 ML Ampul ONE (11:40)
[2017-12-15] MEDS: Propofol 1000 mg/100 ml Inj 1,000 MG/100 ML BOTTLE IV.CONT PRN (12:00)
[2017-12-15] MEDS: fentaNYL 10 mcg/mL Premix Drip 2,500 MCG/250 ML BAG IV.SIG PRN (12:00)
[2017-12-15] MEDS ORDERED: Dextrose 50% in Water 50 ML Vial IV.PUSH PRN (12:32)
--- NOTE | 2017-12-15 13:01 | P.HPCC ---
History of Present Illness Service: Critical care medicine Primary Care Physician: UNKNOWN Chief Complaint: Fall at home, diabetes uncontrolled History of Present Illness: This 52-year-old woman with long-standing uncontrolled diabetes mellitus and severe peripheral arterial disease related to a long-term heavy smoking history was found down at her home and initial blood glucose was 610. Her lower back and buttocks was exquisitely tender and a mid line stage IV sacral decubitus was oozing purulent material and inflamed and the surrounding soft tissue. White count was not elevated but 90% neutrophils. Temperature 97 degrees. Moderately encephalopathic though conversant. X-rays revealed no fractures in the pelvis but CAT scan demonstrated extensive subcutaneous air emanating in both directions left and right from the mid sacral region. This is clearly necrotizing fasciitis or some other gas-forming infection and the woman is critically ill. She received vancomycin, Zosyn, and clindamycin antibiotic therapy as quickly as possible and was transferred to the ICU for ongoing resuscitation. Because of worsening hemodynamic stability she required intubation and mechanical ventilation followed by central line placement on arrival to the ICU. Insulin drip infusion was started in the emergency department and glucose had declined into the low 400s. She was not in ketoacidosis but lactic acid was elevated at 3.1. General surgery and orthopedic surgery were consulted for recommendations and it was felt that this woman was too unstable to tolerate an operative procedure immediately. We continue her ongoing resuscitation and trial in the ICU at this stage. - Diagnosis (1) Septic shock with acute organ dysfunction due to anaerobic bacteria (2) Acute respiratory failure (3) Necrotizing fasciitis (4) Type 2 diabetes mellitus with hyperosmolar nonketotic hyperglycemia (5) MARIO (acute kidney injury) (6) Lactic acidosis Inpatient Certification: I certify that the inpatient services were ordered in accordance with Medicare regulations governing the order. This includes certification that hospital inpatient services are reasonable and necessary and in the case of services not specified as inpatient-only under 42 CFR 419.22(n), that they are appropriately provided as inpatient services in accordance to with the 2-midnight benchmark under 43 CFR 412.3(e) Estimated Total Length of Stay (Days): 3 Plans for Post Hospital Care: SNF Review of Systems No chest pain, mild shortness of breath, severe hip and buttock pain. PMFSH - History History Provided By: Patient - Medical History Medical History: Medical History (Last Updated 12/15/17 @ 06:49 by Barbara Poe RN) Decubital ulcer Benign hypertension Diabetes Hepatitis C virus Osteomyelitis - Surgical History Surgical History: Surgical History (Last Reviewed 12/15/17 @ 06:48 by Barbara Poe RN) Hx of AKA (above knee amputation) Previous section - Family History Family History: Family History (Last Reviewed 11/29/17 @ 17:44 by Kimberly York DPM) Mother EtOH dependence Father EtOH dependence - Tobacco History Second Hand Smoke Exposure: No Tobacco Use In Past 30 Days: Yes Smoking Status: Current some day smoker Tobacco Type: Cigarettes Packs Per Day: 2 Smoking End Date: 6 months ago - Alcohol History How Often Do You Have a Drink Containing Alcohol: Never - Substance Use History Substance History: No History of Abuse - Immunization History Tetanus Immunization: Unable to Assess Medications and Allergies Active Medications: Active Medications Al Hydroxide/Mg Hydroxide (Milk Of Magnmaria dolores Liq) 30 ml PO Q12H PRN PRN Reason: Mild Constipation Albuterol (Duoneb Neb (Prn)) 1 ampul NEB Q2HR NEB PRN PRN Reason: WHEEZING Bisacodyl (Dulcolax Supp) 10 mg RECTAL DAILY PRN PRN Reason: SEVERE CONSITIPATION Chlorhexidine Gluconate (Chlorhexidine 2% Cloth) 3 pack TOPICAL DAILY@0400 RICARDO Stop: 12/21/17 03:59 Chlorhexidine Gluconate (Chlorhexidine 2% Cloth) 3 pack TOPICAL DAILY@0400 PRN PRN Reason: Extra cloth needed Stop: 12/21/17 03:59 Chlorhexidine Gluconate (Peridex 0.12% Oral Kit) 15 ml OROPHARYNG BID@0800, 2000 RICARDO Dextrose (D50w Vial) 50 ml IV.PUSH UNSCH PRN PRN Reason: PER HYPOGLYCEMIA PROTOCOL Dextrose (D50w Vial) 50 ml IV.PUSH UNSCH PRN PRN Reason: PER HYPOGLYCEMIA PROTOCOL Famotidine (Pepcid Pf Inj) 20 mg IV.PUSH Q12HR RICARDO Glucagon (Glucagon Inj) 1 mg OTHER PRN PRN PRN Reason: for Hypoglycemia Protocol Hydromorphone HCl (Dilaudid Pf Inj) 1 mg IV.PUSH Q4H PRN PRN Reason: PAIN SCALE 6 TO 10 Sodium Chloride (Ns Inj) 1,000 mls @ 0 mls/hr IV.SIG BOLUS RICARDO Last Admin: 12/15/17 11:12 Dose: 999 mls/hr Sodium Chloride (Ns Inj) 1,000 mls @ 0 mls/hr IV.SIG BOLUS RICARDO Insulin Human Regular 100 unit (/ Sodium Chloride) 100 mls @ 6 mls/hr IV.CONT TITRATE PRN; Protocol PRN Reason: See protocol Stop: 12/15/17 14:00 Last Admin: 12/15/17 10:22 Dose: 6 units/hr, 6 mls/hr Vancomycin HCl 1,000 mg/ (Sodium Chloride) 250 mls @ 250 mls/hr IV.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 [facility] Stop: 12/16/17 09:59 Last Admin: 12/15/17 10:11 Dose: 250 mls/hr Sodium Chloride (Ns Inj) 1,000 mls @ 125 mls/hr IV.CONT .Q8H RICARDO Clindamycin/Sodium Chloride (Cleocin 900 Mg/Ns Premix) 900 mg in 50 mls @ 100 mls/hr IV.SIG Q8H RICARDO Sodium Chloride (Ns Inj) 1,000 mls @ 0 mls/hr IV.SIG BOLUS RICARDO Norepinephrine Bitartrate 4 mg (/ Sodium Chloride) 250 mls @ 7.5 mls/hr IV.SIG TITRATE PRN; Protocol PRN Reason: Per Protocol Fentanyl (Fentanyl 10 Mcg/Ml Premix Drip) 2,500 mcg in 250 mls @ 5 mls/hr IV.SIG TITRATE PRN; Protocol PRN Reason: Per Protocol Propofol (Diprivan 1000 Mg/100 Ml Inj) 1,000 mg in 100 mls @ 1.837 mls/hr IV.CONT TITRATE PRN; Protocol PRN Reason: Per Protocol Insulin Aspart (Novolog Insulin Correctional Sugar Inj) 0 unit SQ Q6HR [facility]; Protocol Insulin Detemir (Levemir Inj) 10 unit SQ BID [facility] Lactulose (Lactulose Liq) 30 ml PO DAILY PRN PRN Reason: SEVERE CONSITIPATION Miscellaneous Medication () 1 each OROPHARYNG 0000,0400,1200,1600 [facility] Ondansetron HCl (Zofran Inj) 4 mg IV.PUSH Q6H PRN PRN Reason: NAUSEA OR VOMITING Senna/Docusate Sodium (Belinda-Colace) 1 tab PO BID [facility] Sennosides (Senokot) 17.2 mg PO Q12H PRN PRN Reason: Moderate Constipation Sodium Chloride (Ns Flush) 2 ml IV.FLUSH PRN PRN PRN Reason: FLUSH AFTER USING IV ACCESS Sodium Chloride (Ns Flush) 2 ml IV.FLUSH BID IRCARDO Sodium Chloride (Ns Flush) 2 ml IV.FLUSH PRN PRN PRN Reason: FLUSH AFTER USING IV ACCESS Terbutaline Sulfate (Brethine Inj) 1 mg SQ UNSCH PRN PRN Reason: For Extravasation Allergies Allergy/AdvReac Type Severity Reaction Status Date / Time No Known Allergies Allergy Verified 12/15/17 07:54 Home Medications Medication Instructions Recorded Confirmed Type insulin asp prt-insulin aspart 1 sliding scale dose SUBCUT UD 11/28/17 12/15/17 History [Novolog Mix 70-30 U-100 Insuln] insulin detemir U-100 [Levemir 15 unit SUBCUT QPM 11/28/17 12/15/17 History U-100 Insulin] Results - Labs CBC & Chem 7: 12/15/17 06:45 12/15/17 06:45 Labs: Short CBC 12/15/17 Range/Units 06:45 WBC 10.2 (4.0-11.0) th/mm3 Hgb 8.8 L (11.6-15.3) gm/dL Hct 26.6 L (35.0-46.0) % Plt Count 235 (150-450) th/mm3 BMP 12/15/17 06:45 Sodium 127 L Potassium 3.6 Chloride 93 L Carbon Dioxide 22.5 BUN 39 H Creatinine 1.42 H Calcium 7.3 L* Cardiac Enzymes 12/15/17 Range/Units 06:45 Total Creatine Kinase 74 (26-192) U/L Troponin I Less than 0.02 L (0.02-0.05) ng/mL Liver Function 12/15/17 Range/Units 06:45 Total Bilirubin 0.5 (0.2-1.0) mg/dL AST 18 (15-37) U/L ALT 14 (10-53) U/L Alkaline Phosphatase 536 H (45-117) U/L Albumin 1.3 L (3.4-5.0) g/dL Urine 12/15/17 Range/Units 08:20 Urine Color Yellow (Yellw/Straw) Urine Clarity Turbid H (Clear) Urine pH 5.0 (5.0-8.5) Ur Specific [place] 1.015 (1.002-1.035) Urine Protein Negative (Neg-Trace) mg/dL Urine Glucose (UA) 500 or greater (Negative) mg/dL - Imaging Impressions Femur X-Ray 12/15/17 07:05 CONCLUSION: No fracture is identified. There is extensive soft tissue air in the right gluteal region and extending into the proximal and mid posterior thigh. The soft tissue air suggests an open wound. Pelvis X-Ray 12/15/17 07:05 CONCLUSION: No fracture is identified. However, there is extensive soft tissue air in the left gluteal region and left proximal thigh. Pelvis CT 12/15/17 07:52 CONCLUSION: 1. No fracture is identified. 2. Extensive subcutaneous and soft tissue gas bilaterally, left greater than right. It is most severe in the left gluteal region and extends into the proximal posterior thigh. The soft tissue air dissects through the gluteal musculature. There is adjacent subcutaneous edema. Exam Vital signs: Vital Signs 12/15/17 06:46 12/15/17 06:53 12/15/17 07:05 Temperature 97.5 F L Pulse Rate 100 H 100 H 98 H Respiratory Rate 20 20 16 Blood Pressure 96/50 L 104/59 L Pulse Oximetry 100 100 12/15/17 09:11 12/15/17 11:14 12/15/17 11:26 Temperature 97.7 F Pulse Rate 97 H 97 H 97 H Respiratory Rate 16 18 20 Blood Pressure 101/56 L 79/45 L 107/58 L Pulse Oximetry 100 12/15/17 11:57 Temperature Pulse Rate Respiratory Rate 16 Blood Pressure Pulse Oximetry Intake & Output 12/14/17 12/15/17 12/15/17 18:59 06:59 18:59 Intake Total 2099 Balance 2099 Weight 61.235 kg Intake: IV 2099 Zosyn 4.5 GM Premix 4.5 gm In 100 / 100 100 ml @ 200 mls/hr IV.SIG ONCE ONE Rx#:[id number] NS Inj 1,000 ML @ Wide Open IV. 1999 SIG BOLUS RICARDO Rx#:[id number] Narrative: General: Ill-appearing middle-aged woman in considerable distress from pain Head: Atraumatic, normal, edentulous Neck: Supple, no obstruction to breathing, no pain or tenderness to movement Lungs: Clear bilaterally without wheezes or crackles. Mild tachypnea but comfortable respiratory pattern. Heart: Regular rate and rhythm with tachycardia, no murmur rub, neck veins are flat Abdomen: Soft, no guarding, no peritoneal irritation, bowel sounds are few but present Back: Lumbar region and iliac crests posteriorly are exquisitely tender. There is a moderate erythema to the skin over the pelvis and buttocks. Midline sacral stage IV decubitus with surrounding bright erythema and central drainage. There is obvious subcutaneous emphysema under both gluteal regions. Extremities: Tepid: Poorly perfused, status post below-knee amputation right side, necrotic ulceration over several toes left foot Neurological: Patient is conversant but lethargic. She moves 4 limbs to command. Pupils responsive, EOMs intact, tracks with eyes. Oriented to place person and time. Septic Shock Reassessment Septic shock perfusion: reassessment completed Caprini VTE Risk Assessment Caprini VTE Risk Assessment: Moderate/High Risk (score >= 2) VTE Pharmacological Exception Reason: High risk for bleeding Caprini Risk Assessment Model: Point Value = 1 Point Value = 2 Point Value = 3 Point Value = 5 Age 41-60 Minor surgery BMI > 25 kg/m2 Swollen legs Varicose veins or History of unexplained or recurrent spontaneous Oral contraceptives or hormone replacement Sepsis (< 1 month) Serious lung disease, including pneumonia (< 1 month) Abnormal pulmonary function Acute myocardial infarction Congestive heart failure (< 1 month) History of inflammatory bowel disease Medical patient at bed rest Age 61-74 Arthroscopic surgery Major open surgery (> 45 min) Laparoscopic surgery (> 45 min) Malignancy Confined to bed (> 72 hours) Immobilizing plaster cast Central venous access Age >= 75 History of VTE Family history of VTE Factor V Leiden Prothrombin [id number] Lupus anticoagulant Anticardiolipin antibodies Elevated serum homocysteine Heparin-induced thrombocytopenia Other congenital or acquired thrombophilia Stroke (< 1 month) Elective arthroplasty Hip, pelvis, or leg fracture Acute spinal cord injury (< 1 month) Prophylaxis Regimen: Total Risk Factor Score Risk Level Prophylaxis Regimen 0-1 Low Early ambulation 2 Moderate Order ONE of the following: *Sequential Compression Device (SCD) *Heparin 5000 units SQ BID 3-4 Higher Order ONE of the following medications: *Heparin 5000 units SQ TID *Enoxaparin/Lovenox 40 mg SQ daily (WT < 150 kg, CrCl > 30 mL/min) *Enoxaparin/Lovenox 30 mg SQ daily (WT < 150 kg, CrCl > 10-29 mL/min) *Enoxaparin/Lovenox 30 mg SQ BID (WT < 150 kg, CrCl > 30 mL/min) AND/OR *Sequential Compression Device (SCD) 5 or more Highest Order ONE of the following medications: *Heparin 5000 units SQ TID (Preferred with Epidurals) *Enoxaparin/Lovenox 40 mg SQ daily (WT < 150 kg, CrCl > 30 mL/min) *Enoxaparin/Lovenox 30 mg SQ daily (WT < 150 kg, CrCl > 10-29 mL/min) *Enoxaparin/Lovenox 30 mg SQ BID (WT < 150 kg, CrCl > 30 mL/min) AND *Sequential Compression Device (SCD) Assessment and Plan - Problem List (1) Septic shock with acute organ dysfunction due to anaerobic bacteria Code(s): A41.4 - Sepsis due to anaerobes; R65.21 - Severe sepsis with septic shock Status: Acute (2) Acute respiratory failure Code(s): J96.00 - Acute respiratory failure, unspecified whether with hypoxia or hypercapnia Status: Acute (3) Necrotizing fasciitis Code(s): M72.6 - Necrotizing fasciitis Status: Acute (4) Type 2 diabetes mellitus with hyperosmolar nonketotic hyperglycemia Code(s): E11.01 - Type 2 diabetes mellitus with hyperosmolarity with coma Status: Acute (5) MARIO (acute kidney injury) Code(s): N17.9 - Acute kidney failure, unspecified Status: Acute (6) Lactic acidosis Code(s): E87.2 - Acidosis Status: Acute - Assessment and Plan Plan: Plan: Neurological -Sedation with propofol if tolerated -Analgesia with fentanyl -Encephalopathy largely due to sepsis and hyperglycemia Cardiovascular -Taper norepinephrine infusion -Continue volume loading with isotonic crystalloid -Follow acid-base balance closely Respiratory -Intubation and mechanical ventilation -ABG after 1 hour -Bronchodilators Endocrinology -Levemir 10 units subcu twice daily -Discontinue insulin drip infusion 2 hours after Levemir initiated -Orient q. 6-hour correction sliding scale insulin -Follow potassium and magnesium correction closely Hematology -Obvious infection. -Follow white count and platelet count closely GI -Nasogastric tube to low intermittent suction -N.p.o. -Tristan required for hourly urine output -High risk for further deterioration in renal function Infectious disease -Continue vancomycin, Zosyn, clindamycin Prophylaxis -Pepcid for GI ulcer prophylaxis -SCDs for DVT prophylaxis -Hold chemical DVT prophylaxis until surgical decisions are made Lines: Left subclavian central venous line placed 12/15 Overall impression: This woman is critically ill and in septic shock with necrotizing fasciitis emanating from a deep chronic sacral decubitus. Her diabetes is uncontrolled, she is severely dehydrated and in profound shock. She is too sick on arrival to undergo immediate surgical debridement. We will quickly take her to the ICU, placed on mechanical ventilation, insert invasive lines, and continue her resuscitation while loading intravenous antibiotics. Hopefully she can go undergo resection shortly later this afternoon. Critical care time 60 minutes aside from invasive procedures.
--- NOTE | 2017-12-15 13:03 | XR ---
EXAM DATE: 12/15/2017 12:53 PM EDT AGE/SEX: 52 years / Female INDICATIONS: Central line placement, ET tube placement, and NG tube placement. CLINICAL DATA: This is the patient's initial encounter. Patient reports that signs and symptoms have been present for 1 day and indicates a pain score of Nonresponsive. MEDICAL/SURGICAL HISTORY: Diabetes. Hypertension. Hepatitis C. section. Right above knee amputation. COMPARISON: [facility] – [place]ST 1V SINGLE AP, 09/26/2017. . FINDINGS: Portable AP view of the chest demonstrates a normal-sized cardiac silhouette. Endotracheal tube dista l tip measures approximately 1.4 cm from the damian and nasogastric tube distal tip just barely exten ds beyond the GE junction. EKG lines overlie the patient. There is airspace opacity in the left lower lung zone. No pneumothorax is identified. Left subclavian central line distal tip is in the SVC. Bon es demonstrate no acute abnormality. CONCLUSION: 1. Endotracheal tube tip only measures 1.4 cm from the damian. 2. Left subclavian central line distal tip is in the SVC and there is no pneumothorax. 3. Nasogastric tube distal tip is near the GE junction and therefore consider advancement. 4. Focal airspace consolidation in the left lower lung zone. Electronically signed by: Derek Grover MD 12/15/2017 1:02 PM EDT
[2017-12-15] MEDS: Insulin Detemir Inj 1,000 UNIT/10 ML Vial SQ SCH ×2 (13:36→22:13)
[2017-12-15] MEDS: Clindamycin 900 mg/NS Premix 900 MG/50 ML PIGGYBACK IV.SIG SCH ×2 (13:36→20:06)
--- NOTE | 2017-12-15 13:59 | P.PCN ---
Procedure: Diagnosis: Septic shock, necrotizing fasciitis, respiratory failure Procedure: 1. Orotracheal intubation 2. Insertion left subclavian central venous line Narrative: Timeout performed. Patient properly identified. Versed 5 mg intravenous. Gentle bag mask ventilation. Rocuronium 50 mg IV. Intubation oral tracheal route with #8 tube. Cords easily identified. Position confirmed with CO2 detection, bilateral breath sounds, sats 100%. Left chest prepped and draped. 1% Xylocaine infiltration anesthetic used under left clavicle. Patient placed in Trendelenburg position. Using a thin-walled needle the left subclavian vein was cannulated from under the clavicle. A floppy wire was easily passed. Dilators were passed and the catheter was inserted over the wire to a distance of 17 cm. All lumens were aspirated and flushed. Chest x- ray ordered, ET tube at level of damian. ET tube withdrawn 2 cm. Good bilateral breath sounds confirmed. Left subclavian line in acceptable position.
[2017-12-15 14:00] LABS: INR 1.3 Ratio; Prothrombin Time 12.7 sec (9.8-11.6)
[2017-12-15 14:05] LABS: ABG PCO2 46 mmHg (38-42); ABG PO2 231 mmHg (61-120)
[2017-12-15 14:14] LABS: Calcium 7.2 mg/dL (8.5-10.1); Carbon Dioxide 21.2 meq/L (21.0-32.0); Magnesium 1.7 mg/dL (1.5-2.5); Phosphorus 3.1 mg/dL (2.5-4.9)
[2017-12-15 14:22] LABS: Potassium 2.5 meq/L (3.5-5.1)
[2017-12-15 14:35] LABS: Calcium-Albumin Corrected 7.5 mg/dL (8.5-10.1); Total Protein 6.5 g/dL (6.4-8.2)
[2017-12-15] MEDS ORDERED: Potassium Chloride Inj 20 MEQ/10 ML Vial IV.SIG ONE ×2 (14:47→17:00)
[2017-12-15] MEDS ORDERED: Potassium Chloride 20 MEQ Pwd Pkt NG/OG ONE (15:00)
[2017-12-15] MEDS ORDERED: Potassium Chloride 25 MEQ Effervescent Tablet NG/OG ONE (15:00)
[2017-12-15] MEDS ORDERED: Potassium Chlor 40 mEq Premix 40 MEQ/100 ML PIGGYBACK IV.SIG ONE ×2 (15:00→19:00)
[2017-12-15] MEDS: Oral Hygiene Kit OROPHARYNG SCH ×2 (15:10→22:12)
[2017-12-15] MEDS ORDERED: Potassium Chlor 20 mEq Premix 20 MEQ/100 ML PIGGYBACK IV.SIG SCH (15:15)
[2017-12-15] MEDS ORDERED: Potassium Chlor 20 mEq Premix 40 MEQ/200 ML PIGGYBACK IV.SIG ONE (15:30)
[2017-12-15] MEDS ORDERED: Phenylephrine/NS 1000 MCG/10ML Syringe IV.PUSH ONE (15:45)
[2017-12-15] MEDS ORDERED: Calcium Gluconate Inj 2 GM in Sodium Chlor 0.9% Inj 100 ML IV.SIG ONE (16:00)
[2017-12-15] MEDS: Sodium Bicarbonate 8.4% Inj 150 MEQ in Water for Inj, Sterile 850 ML IV.CONT SCH ×2 (16:02→20:06)
--- NOTE | 2017-12-15 16:17 | P.OP ---
- Preoperative Diagnosis (1) Necrotizing fasciitis of pelvic region and thigh (2) Necrotizing fasciitis - Postoperative Diagnosis (1) Necrotizing fasciitis of pelvic region and thigh Procedure: i and d with wle of back, buttock, thigh area, vac Anesthesia: GETA Surgeon: Ventura Bazzi MD Pathology: none sent (necrotic tissue) Operation and Findings: nec fascitis
[2017-12-15 16:51] LABS: ABG Base Excess -5.8 mmol/L (-2-2); ABG PCO2 32 mmHg (38-42); ABG PO2 265 mmHG (61-120)
[2017-12-15 17:51] LABS: Calcium 6.6 mg/dL (8.5-10.1); Carbon Dioxide 22.2 meq/L (21.0-32.0); Potassium 3.5 meq/L (3.5-5.1)
[2017-12-15 18:10] LABS: Total Protein 5.5 g/dL (6.4-8.2)
[2017-12-15 18:24] LABS: Calcium-Albumin Corrected 7.4 mg/dL (8.5-10.1)
[2017-12-15] MEDS: Potassium Chlor 20 mEq Premix 20 MEQ/100 ML PIGGYBACK IV.SIG SCH (18:30)
[2017-12-15] MEDS: Famotidine PF Inj 20 MG/2 ML Vial IV.PUSH SCH (20:05)
[2017-12-15] MEDS: Senna/Docusate Sodium 8.6/50 MG Tablet PO SCH (20:05)
[2017-12-15] MEDS: Chlorhexidine 0.12% Oral Kit 15 ML UDC OROPHARYNG SCH (20:06)
[2017-12-15] MEDS: Dextrose 50% in Water 50 ML Vial IV.PUSH PRN (20:20)
--- NOTE | 2017-12-15 20:45 | MB ---
cc: Chapincito Song MD DATE: 12/15/2017 REQUESTING PHYSICIAN: Jesse Fair MD REASON FOR CONSULTATION: Necrotizing fasciitis. HISTORY OF PRESENT ILLNESS: This is a 52-year-old white female who was brought to the emergency department after she fell at home. The patient was noted to have profound weakness. She was evaluated in the emergency department and at that time had normal temperature and white blood cell count was also normal. She underwent CT scan of the abdomen and pelvis that showed extensive subcutaneous and soft tissue gas bilaterally with the left greater than right, most severe in the left gluteal region and extending into the proximal posterior thigh. Soft tissue air dissecting through the gluteal musculature. The patient has a history of diabetes mellitus. She is currently intubated on the ventilator. Information is obtained from medical record. Blood cultures were obtained today and she was started on antibiotics. She is due to go to surgery sometime this evening. She was started on Levophed and is currently on 3 mcg. Her blood pressure is normal. PAST MEDICAL HISTORY: Diabetes mellitus, hypertension, hepatitis C, right below the knee amputation for osteomyelitis, decubital ulceration of the sacrum. ALLERGIES: NO KNOWN DRUG ALLERGIES. MEDICATIONS: Vancomycin and clindamycin. SOCIAL HISTORY: The patient lives with her . Positive tobacco use. No alcohol. No illicit drugs. FAMILY HISTORY: Unable to obtain. REVIEW OF SYSTEMS: Unable to obtain. PHYSICAL EXAMINATION: GENERAL: This is a slim female who is on the ventilator and unresponsive. VITAL SIGNS: Temperature 97.7, BP 126/64, heart rate 101, respirations per ventilator. HEENT: Unable to assess fully. The sclerae has edema. Oropharynx intubated. NECK: Supple. No adenopathy or swelling. LUNGS: Decreased breath sounds. HEART: Regular S1 and S2. A 1-2/6 systolic murmur at the left sternal border. ABDOMEN: Bowel sounds present, soft, no tenderness appreciated. The left buttock has mild ecchymosis. There is also an area of ecchymosis at the inner aspect of the left thigh. RECTAL: Not performed. EXTREMITIES: No clubbing, no cyanosis or edema. SKIN: No diffuse rash. NEUROLOGIC: Unable to assess. PSYCHIATRIC: Unable to assess. LABORATORY DATA: WBC 10.2, platelets 235, hemoglobin 8.8, 90% neutrophils, 7% lymphocytes. Creatinine 1.42, BUN 39. Estimated GFR 39. Blood glucose elevated. Alkaline phosphatase is 536. IMPRESSION: 1. Necrotizing fasciitis of the gluteal muscles. 2. Septic shock. 3. Acute respiratory failure. 4. Chronic kidney disease. RECOMMENDATIONS: 1. Continue vancomycin. 2. Continue clindamycin. 3. Add cefepime for gram-negative coverage. 4. Monitor cultures. Culture should be sent for microbiology evaluation when surgery is performed. Monitor white blood cell count. Thank you for this consultation. I will follow the patient's progress with you and make further recommendations upon followup as necessary. MD ABIGAIL Lopez/[email or web address] , 02:07 PM , 02:20 PM KEVIN
[2017-12-15] MEDS ORDERED: Magnesium Sulfate Inj 2 GM in Sodium Chlor 0.9% Inj 96 ML IV.SIG PRN (22:06)
[2017-12-15] MEDS ORDERED: Potassium Chloride 25 MEQ Effervescent Tablet PO PRN (22:06)
[2017-12-15] MEDS ORDERED: Magnesium Sulfate Inj 4 GM in Sodium Chlor 0.9% Inj 92 ML IV.SIG PRN (22:06)
[2017-12-15] MEDS ORDERED: Sodium Phosphate Inj 30 MMOL in Sodium Chlor 0.9% Inj 250 ML IV.SIG PRN (22:06)
[2017-12-15] MEDS ORDERED: Potassium Phosphate 500 MG Soluble Tablet PO PRN ×2 (22:06)
[2017-12-15] MEDS ORDERED: Potassium Phosphate Inj 30 MMOL in Sodium Chlor 0.9% Inj 250 ML IV.SIG PRN (22:06)
[2017-12-15] MEDS ORDERED: Magnesium Oxide 400 MG Tablet PO PRN (22:06)
[2017-12-15] MEDS: Insulin NovoLOG Aspart Correctional Sugar Inj SQ SCH (22:12)
[2017-12-15] MEDS: Dextrose 5%/Lactated Ringer's 1,000 ML IV.CONT SCH (22:31)
--- NOTE | 2017-12-15 22:40 | MB ---
cc: Ventura Bazzi MD DATE: 12/15/2017 CHIEF COMPLAINT: Severe buttock, thigh, back pain, necrotizing fasciitis. DIRECTOR OF COMMUNITY EDUCATION: Prashanth Last MD HISTORY OF PRESENT ILLNESS: The patient is a 52-year-old female with multiple medical problems, heavy smoking, peripheral vascular disease, uncontrolled diabetes, who presented to the emergency department with hyperglycemia, blood sugars in the 600s. When seen by EMS, blood sugar was greater than 500. The patient was noted to have a history of sacral decubitus ulcer and was complaining of 9/10 severe buttock and back pain. She states the pain started several days ago and continued to get worse. She denied any significant fever, but did state some lightheaded, dizziness and fell on her hip and lower extremity recently. The patient lives with her . The patient further complained of diffuse body aches. She denies chest pain, shortness of breath. She had a CT scan and further workup showing extensive soft tissue gas in buttock area, back area and upper thigh posteriorly. Surgery was consulted. PAST MEDICAL HISTORY: Hepatitis C, decubitus ulcer, hypertension, diabetes, osteomyelitis. PAST SURGICAL HISTORY: History of AKA, . SOCIAL HISTORY: History of heavy smoking 2 packs per day for many years. Denies ETOH or IVDA. ALLERGIES: NO KNOWN DRUG ALLERGIES. MEDICATIONS: See electronic medical record. FAMILY HISTORY: Denies diabetes or hypertension. REVIEW OF SYSTEMS: GENERAL: The patient is in moderate distress. HEENT: Denies eye pain, ear pain. NECK: Denies swelling or pain. LUNGS: Denies wheeze or cough. ABDOMEN: Denies nausea or vomiting. GENITOURINARY: Denies dysuria or hematuria. ENDOCRINE: Denies polyuria or polydipsia. INTEGUMENT: Complains of sacral decubitus ulcer. MUSCULOSKELETAL: Right BKA. NEUROLOGIC: Answering questions, awake and alert. PSYCHIATRIC: Flat affect. PHYSICAL EXAMINATION: GENERAL: The patient in moderate distress. VITAL SIGNS: Temperature 97.5, pulse 100, respiratory rate 20, blood pressure 96/50. Saturation 100%. Hypotensive, intermittently systolic of 70s, responding to fluid bolus. HEENT: Pupils equal, round, reactive. NECK: Supple. Trachea midline. LUNGS: Bilateral expansion, clear. HEART: S1, S2, regular, tachycardic. ABDOMEN: Soft, nontender, nondistended. EXTREMITIES: Warm and well perfused. BACK: Crepitus and severe tenderness to palpation lower back, buttock, and bilateral posterior thighs. A 4 x 4 cm open sacral decubitus, foul smelling purulent drainage. INTEGUMENT: As above. PSYCHIATRIC: Poor mood, poor judgment. LABORATORY AND DIAGNOSTIC DATA: WBC 10.5, hemoglobin 8.8, hematocrit 26.6, platelets 235. Sodium 135, potassium 2.5, chloride 104. Creatinine is 1, BUN is 34. Blood sugar initial 610; current one 184. Calcium 7.2. Lactate 3.3. CT reviewed by myself showing extensive soft tissue air subcutaneous tissue along fascia posterior thigh, back and buttock. ASSESSMENT: The patient is a 52-year-old female with multiple medical issues heavy smoker. Uncontrolled diabetes. Necrotizing fasciitis back, buttock, thigh, septic shock. critical state. PLAN: After a full workup of the patient with the above issues, at this point, recommend continue IV fluids, bolus. Would recommend central line. Would recommend intubation for airway protection. Further recommend IV antibiotics. Discussed with the patient in detail regarding the severity of the situation. Discussed with the patient that she has a very life threatening illness including necrotizing fasciitis and emergently we have to take her to the OR for a very wide debridement of this. Further pending debridements and extent of tissue removal. The patient may warrant a colostomy in the future, given the location and possibly the anus involvement. The patient needs to be typed and crossed. Electrolytes need to be corrected. Further discussed the risk of surgery with deranged electrolytes including potassium, however, this is an emergency surgery and the patient needs to go stat to the OR. MD PAM Cordova/lb , 04:24 PM , 04:34 PM KEVIN
[2017-12-15 22:53] LABS: Calcium 6.6 mg/dL (8.5-10.1); Carbon Dioxide 23.9 meq/L (21.0-32.0); Magnesium 1.8 mg/dL (1.5-2.5); Potassium 3.7 meq/L (3.5-5.1)
[2017-12-15] MEDS ORDERED: Sodium Chlor 0.9% Inj 250 ML IV.SIG SCH (23:00)
[2017-12-15 23:10] LABS: Total Protein 5.6 g/dL (6.4-8.2)
[2017-12-15 23:19] LABS: Calcium-Albumin Corrected 7.3 mg/dL (8.5-10.1)
--- NOTE | 2017-12-16 | ECG ---
Date Performed: 12/15/2017 Time Performed: 06:42:38 PTAGE: 52 years EKG: Sinus rhythm NORMAL ECG PREVIOUS TRACING : 08/21/2017 19.28 Since the previous tracing, no significant change noted DOCTOR: Yared Barrientos Interpretating Date/Time 12/15/2017 23:59:50
[2017-12-16] MEDS: Oral Hygiene Kit OROPHARYNG SCH ×4 (00:13→16:16)
[2017-12-16] MEDS: Norepinephrine Inj 4 MG in Sodium Chlor 0.9% Inj 246 ML IV.SIG PRN ×2 (01:07→18:10)
[2017-12-16] MEDS: Dextrose 50% in Water 50 ML Vial IV.PUSH PRN ×3 (01:10→21:10)
[2017-12-16] MEDS: Insulin NovoLOG Aspart Correctional Sugar Inj SQ SCH ×4 (01:23→18:04)
[2017-12-16] MEDS ORDERED: Dextrose 10% in Water Inj 1,000 ML IV.CONT SCH (02:00)
[2017-12-16] MEDS: Potassium Chlor 20 mEq Premix 20 MEQ/100 ML PIGGYBACK IV.SIG SCH (02:08)
[2017-12-16] MEDS ORDERED: Chlorhexidine Gluconate 2% 1 Pack (2 Cloths) TOPICAL PRN (04:00)
[2017-12-16 04:28] LABS: Baso # (Auto) 0.1 th/mm3 (0.0-0.2); Baso % (Auto) 0.4 % (0.0-2.0); Eos % (Auto) 0.4 % (0.0-4.0); Hematocrit 26.7 % (35.0-46.0); Lymph # (Auto) 2.1 th/mm3 (1.0-4.8); Lymph % (Auto) 16.7 % (9.0-44.0); Mean Corpuscular HGB Conc 33.9 % (32.0-36.0); Mean Corpuscular Volume 82.6 fL (80.0-100.0); Mean Platelet Volume 8.4 fL (7.0-11.0); Mono # (Auto) 0.1 th/mm3 (0.0-0.9); Mono % (Auto) 0.8 % (0.0-8.0); Neut # (Auto) 10.3 th/mm3 (1.8-7.7); Neut % (Auto) 81.7 % (16.0-70.0); Platelet Count 244 th/mm3 (150-450); Red Blood Count 3.23 mil/mm3 (4.00-5.30); Red Cell Distribution Width 14.5 % (11.6-17.2); White Blood Count 12.6 th/mm3 (4.0-11.0)
[2017-12-16 04:50] LABS: Carbon Dioxide 22.2 meq/L (21.0-32.0); Total Protein 5.5 g/dL (6.4-8.2)
[2017-12-16] MEDS: Dextrose 5%/Lactated Ringer's 1,000 ML IV.CONT SCH ×3 (04:59→18:22)
[2017-12-16] MEDS: Chlorhexidine Gluconate 2% 1 Pack (2 Cloths) TOPICAL SCH (05:00)
[2017-12-16] MEDS: Clindamycin 900 mg/NS Premix 900 MG/50 ML PIGGYBACK IV.SIG SCH ×3 (05:01→20:49)
[2017-12-16 05:02] LABS: Lymphocytes 18 % (9-44); Monocytes 3 % (0-8); Platelet Estimate Normal (Normal); Platelet Morphology Normal (Normal); Toxic Granulation 1+; Toxic Vacuolation Present
--- NOTE | 2017-12-16 06:49 | P.PNCC ---
Subjective Subjective Remarks/Hospital Course: This 52-year-old woman with long-standing uncontrolled diabetes mellitus and severe peripheral arterial disease related to a long-term heavy smoking history was found down at her home and initial blood glucose was 610. Her lower back and buttocks was exquisitely tender and a mid line stage IV sacral decubitus was oozing purulent material and inflamed and the surrounding soft tissue. White count was not elevated but 90% neutrophils. Temperature 97 degrees. Moderately encephalopathic though conversant. X-rays revealed no fractures in the pelvis but CAT scan demonstrated extensive subcutaneous air emanating in both directions left and right from the mid sacral region. This is clearly necrotizing fasciitis or some other gas-forming infection and the woman is critically ill. She received vancomycin, Zosyn, and clindamycin antibiotic therapy as quickly as possible and was transferred to the ICU for ongoing resuscitation. Because of worsening hemodynamic stability she required intubation and mechanical ventilation followed by central line placement on arrival to the ICU. Insulin drip infusion was started in the emergency department and glucose had declined into the low 400s. She was not in ketoacidosis but lactic acid was elevated at 3.1. General surgery and orthopedic surgery were consulted for recommendations and it was felt that this woman was too unstable to tolerate an operative procedure immediately. We continue her ongoing resuscitation and trial in the ICU at this stage. 12/16: Following aggressive resuscitation yesterday for the treatment of severe hyperglycemia, septic shock, respiratory failure, metabolic acidosis, acute kidney injury, the patient went to the operating room with an extensive wide debridement bilateral gluteal and left thigh soft tissue and muscle. Primary antibiotic coverage at this point is vancomycin, cefepime, clindamycin. The patient started to make urine late yesterday afternoon and has continued to acceptable output since. Lactic acidosis is 2.0 this morning but metabolic acidosis persists despite bicarb drip. She remains on vasopressor support and hemodynamically unstable. - Diagnosis (1) Septic shock with acute organ dysfunction due to anaerobic bacteria (2) Acute respiratory failure (3) Necrotizing fasciitis (4) Type 2 diabetes mellitus with hyperosmolar nonketotic hyperglycemia (5) MARIO (acute kidney injury) (6) Lactic acidosis Objective Vital Signs / I&O: Vital Signs 12/15/17 06:46 12/15/17 06:53 12/15/17 07:05 Temperature 97.5 F L Pulse Rate 100 H 100 H 98 H Respiratory Rate 20 20 16 Blood Pressure 96/50 L 104/59 L Pulse Oximetry 100 100 12/15/17 09:11 12/15/17 11:14 12/15/17 11:26 Temperature 97.7 F Pulse Rate 97 H 97 H 97 H Respiratory Rate 16 18 20 Blood Pressure 101/56 L 79/45 L 107/58 L Pulse Oximetry 100 12/15/17 11:57 12/15/17 12:00 12/15/17 15:08 Temperature Pulse Rate Respiratory Rate 16 16 18 Blood Pressure Pulse Oximetry 100 12/15/17 15:30 12/15/17 20:00 12/15/17 21:32 Temperature 97.5 F L Pulse Rate 92 H Respiratory Rate 18 18 Blood Pressure Pulse Oximetry 100 100 100 12/15/17 22:00 12/15/17 23:29 12/15/17 23:46 Temperature 97.5 F L 97.6 F Pulse Rate 90 85 83 Respiratory Rate 12 18 Blood Pressure 122/61 Pulse Oximetry 100 100 12/16/17 00:00 Temperature 97.6 F Pulse Rate 84 Respiratory Rate 18 Blood Pressure Pulse Oximetry 100 Intake & Output 12/15/17 12/15/17 12/16/17 06:59 18:59 06:59 Intake Total 5650 / 5650 2395 / 2395 Output Total 1100 / 1100 Balance 4550 / 4550 2395 / 2395 Weight 61.235 kg 64.9 kg Intake: IV 3650 / 3650 1994 D5W/LR Inj 1,000 ML @ 150 mls/ 1000 / 1000 hr IV.CONT .Q6H40M [facility] Rx#: [id number] NS Inj 1,000 ML @ 125 mls/hr IV 250 / 250 .CONT .Q8H [facility] Rx#:[id number] Sodium Bicarbonate 8.4% Inj 150 375 / 375 MEQ In Sterile Water for Inj 850 ML @ 150 mls/hr IV.CONT . Q6H40M [facility] Rx#:[id number] Calcium Gluconate Inj 2 GM In 120 / 120 NS Inj 100 ML @ 120 mls/hr IV. SIG ONCE ONE Rx#:[id number] Maxipime Inj 2,000 MG In NS Inj 200 / 200 100 ML @ 200 mls/hr IV.SIG Q12H [facility] Rx#:[id number] Cleocin 900 mg/NS Premix 900 mg 50 / 50 100 / 100 In 50 ml @ 100 mls/hr IV.SIG Q8H [facility] Rx#:[id number] Zosyn 4.5 GM Premix 4.5 gm In 100 / 100 100 ml @ 200 mls/hr IV.SIG ONCE ONE Rx#:[id number] KCl 20 mEq Premix Inj 20 meq In 200 / 200 100 ml @ 50 mls/hr IV.SIG Q2H [facility] Rx#:[id number] NS Inj 1,000 ML @ Wide Open IV. 3000 / 3000 SIG BOLUS [facility] Rx#:[id number] Vancomycin Inj 1,000 MG In NS 250 / 250 Inj 250 ML @ 250 mls/hr IV.SIG [employer] [facility] Rx#:[id number] Anesthesia Amount 1999 / 1999 Intake (Blood Product) Amt 400 / 400 Rbc As-3 Leukoreduced Unit 400 / 400 [id number] Output: Estimated Blood Loss 500 / 500 Urine Amount (Catheter) 600 / 600 1 600 / 600 Other: Mode Setting Posterior Sacrum Continuous Weight On Admission 61.23 kg Result Diagrams: 12/16/17 04:10 12/16/17 04:10 Objective Remarks: Narrative: General: Ill-appearing middle-aged woman, intubated and sedated Head: Atraumatic, normal, edentulous Neck: Supple, orotracheal intubation Lungs: Clear bilaterally without wheezes or crackles. Bilateral mobile secretions. Heart: Regular rate and rhythm with tachycardia, no murmur rub, neck veins are not distended Abdomen: Soft, no guarding, no peritoneal irritation, bowel sounds are present Back: Wound VAC in place over lower lumbar region there is a moderate erythema to the skin over the pelvis and buttocks. Midline sacral stage IV decubitus has been debrided. Extremities: Tepid, adequately perfused, status post below-knee amputation right side, necrotic ulceration over several toes left foot Neurological: Intubated and sedated she moves 4 limbs to stimulation. Pupils responsive. Cough, gag intact. Assessment and Plan - Problem List (1) Septic shock with acute organ dysfunction due to anaerobic bacteria Code(s): A41.4 - Sepsis due to anaerobes; R65.21 - Severe sepsis with septic shock Status: Acute (2) Acute respiratory failure Code(s): J96.00 - Acute respiratory failure, unspecified whether with hypoxia or hypercapnia Status: Acute (3) Necrotizing fasciitis Code(s): M72.6 - Necrotizing fasciitis Status: Acute (4) Type 2 diabetes mellitus with hyperosmolar nonketotic hyperglycemia Code(s): E11.01 - Type 2 diabetes mellitus with hyperosmolarity with coma Status: Acute (5) MARIO (acute kidney injury) Code(s): N17.9 - Acute kidney failure, unspecified Status: Acute (6) Lactic acidosis Code(s): E87.2 - Acidosis Status: Acute - Assessment and Plan Plan: Plan: Neurological -Sedation with propofol if tolerated -Analgesia with fentanyl -Encephalopathy largely due to sepsis and hyperglycemia Cardiovascular -Taper norepinephrine infusion -Continue volume loading with isotonic crystalloid -Follow acid-base balance closely Respiratory -Intubation and mechanical ventilation -ABG after 1 hour -Bronchodilators Endocrinology -Levemir 20 units subcu twice daily -Discontinue insulin drip infusion 2 hours after Levemir initiated -> done -Sutton q. 6-hour correction sliding scale insulin -Follow potassium and magnesium correction closely Hematology -Obvious infection. -Follow white count and platelet count closely GI -Nasogastric tube to low intermittent suction -Start tube feeding with Glucerna 1.5 -Tristan required for hourly urine output -High risk for further deterioration in renal function -Needs Tristan at this time to protect perineal region, removed shortly. Infectious disease -Continue vancomycin, Zosyn, clindamycin Prophylaxis -Pepcid for GI ulcer prophylaxis -SCDs for DVT prophylaxis -Hold chemical DVT prophylaxis until surgical decisions are made Lines: Left subclavian central venous line placed 12/15 Overall impression: This woman is critically ill and in septic shock with necrotizing fasciitis emanating from a deep chronic sacral decubitus. Her diabetes was uncontrolled with glucose 610, severely dehydrated and in profound shock. She was too sick on arrival to undergo immediate surgical debridement. We took her to the ICU, placed on mechanical ventilation, insert invasive lines , and continue her resuscitation while loading intravenous antibiotics. Wide excision of the involved soft tissue in the thigh and gluteal region was accomplished yesterday afternoon. She will undoubtedly require multiple debridements following this. She remains unstable and critically ill. Critical care time 40 minutes aside from invasive procedures.
[2017-12-16] MEDS: Senna/Docusate Sodium 8.6/50 MG Tablet PO SCH ×2 (09:16→20:52)
[2017-12-16] MEDS: Chlorhexidine 0.12% Oral Kit 15 ML UDC OROPHARYNG SCH ×2 (09:16→20:52)
[2017-12-16] MEDS: Insulin Detemir Inj 1,000 UNIT/10 ML Vial SQ SCH ×2 (09:17→20:53)
[2017-12-16] MEDS: Famotidine PF Inj 20 MG/2 ML Vial IV.PUSH SCH ×2 (09:17→20:51)
[2017-12-16] MEDS ORDERED: Sod Chloride 0.9% Inj 1,000 ML IV.SIG PRN (09:51)
[2017-12-16] MEDS: Beneprotein Powder Packet G-TUBE SCH ×3 (11:20→18:05)
[2017-12-16] MEDS ORDERED: Sod Chloride 0.9% Inj 1,000 ML IV.SIG SCH ×2 (12:17→12:31)
[2017-12-16] MEDS: Milrinone Inj 20 MG in Sodium Chlor 0.9% Inj 80 ML IV.CONT SCH (13:38)
--- NOTE | 2017-12-16 13:47 | P.PNGS ---
Subjective Interval history: s/p debridement nec tissue infection Physical Exam Vital signs: Vital Signs 12/15/17 15:08 12/15/17 15:30 12/15/17 20:00 Temperature 97.5 F L Pulse Rate 92 H Respiratory Rate 18 18 Blood Pressure Pulse Oximetry 100 100 100 12/15/17 21:32 12/15/17 22:00 12/15/17 23:29 Temperature 97.5 F L Pulse Rate 90 85 Respiratory Rate 18 12 Blood Pressure 122/61 Pulse Oximetry 100 100 12/15/17 23:46 12/16/17 00:00 12/16/17 04:00 Temperature 97.6 F 97.6 F 97.6 F Pulse Rate 83 84 90 Respiratory Rate 18 18 18 Blood Pressure Pulse Oximetry 100 100 100 12/16/17 08:00 12/16/17 10:04 12/16/17 13:13 Temperature Pulse Rate Respiratory Rate 18 18 Blood Pressure Pulse Oximetry 100 100 Intake & Output 12/15/17 12/16/17 12/16/17 18:59 06:59 18:59 Intake Total 5685 / 5685 2395 / 2395 1000 / 1000 Output Total 1100 / 1100 1350 / 1350 Balance 4585 / 4585 1045 / 1045 1000 / 1000 Weight 64.9 kg 71.8 kg Intake: IV 3685 / 3685 1994 / 1994 1000 / 1000 D5W/LR Inj 1,000 ML @ 150 mls/ 1000 / 1000 1000 / 1000 hr IV.CONT .Q6H40M [facility] Rx#: [id number] NS Inj 1,000 ML @ 125 mls/hr IV 250 / 250 .CONT .Q8H [facility] Rx#:[id number] Sodium Bicarbonate 8.4% Inj 150 375 / 375 MEQ In Sterile Water for Inj 850 ML @ 150 mls/hr IV.CONT . Q6H40M [facility] Rx#:[id number] Calcium Gluconate Inj 2 GM In 120 / 120 NS Inj 100 ML @ 120 mls/hr IV. SIG ONCE ONE Rx#:[id number] Maxipime Inj 2,000 MG In NS Inj 200 / 200 100 ML @ 200 mls/hr IV.SIG Q12H [facility] Rx#:[id number] Cleocin 900 mg/NS Premix 900 mg 50 / 50 100 / 100 In 50 ml @ 100 mls/hr IV.SIG Q8H [facility] Rx#:[id number] Zosyn 4.5 GM Premix 4.5 gm In 100 / 100 100 ml @ 200 mls/hr IV.SIG ONCE ONE Rx#:[id number] KCl 20 mEq Premix Inj 20 meq In 200 / 200 100 ml @ 50 mls/hr IV.SIG Q2H [facility] Rx#:[id number] NS Inj 1,000 ML @ Wide Open IV. 3000 / 3000 SIG BOLUS [facility] Rx#:[id number] Vancomycin Inj 1,000 MG In NS 250 / 250 Inj 250 ML @ 250 mls/hr IV.SIG [employer] [facility] Rx#:[id number] Anesthesia Amount 1999 / 1999 Intake (Blood Product) Amt 400 / 400 Rbc As-3 Leukoreduced Unit 400 / 400 [id number] Output: Estimated Blood Loss 500 / 500 500 / 500 Urine Amount (Catheter) 600 / 600 450 / 450 1 600 / 600 450 / 450 Gastric Drainage 150 / 150 Nasogastric Tube 150 / 150 Wound Vac Amount 250 / 250 Posterior Sacrum 250 / 250 Other: Mode Setting Posterior Sacrum Continuous Continuous Weight On Admission 61.23 kg - Constitutional mild distress, chronically ill appearing - Routine Skin Exam Absent: intact Comments: VAC inplace, fxn good with bloody drainage - Urinary Catheter Management 1 Cath placed during this visit: yes Reason for continuing: Hourly intake/output Insertion date: 12/15/17 Results - Labs 12/16/17 04:10 12/16/17 04:10 Laboratory Results - last 24 hr 12/15/17 12/15/17 12/15/17 12:30 13:30 13:30 WBC RBC Hgb Hct MCV MCH MCHC RDW Plt Count MPV Prelim Diff (Auto) Neut % (Auto) Lymph % (Auto) [place] % (Auto) Eos % (Auto) Baso % (Auto) Neut # (Auto) Lymph # (Auto) [place] # (Auto) Eos # (Auto) Baso # (Auto) WBC Differential Seg Neuts % (Manual) Band Neuts % (Manual) Lymphocytes % (Manual) Monocytes % (Manual) Abs Neuts (Manual) Differential Comment Toxic Granulation Toxic Vacuolation Platelet Estimate Platelet Morphology PT 12.7 H INR 1.3 Puncture Site Patient Temperature O2 Saturation ABG pH ABG pCO2 ABG pO2 ABG HCO3 ABG O2 Content ABG Base Excess ABG Methemoglobin Aroldo Test Hemoglobin Carboxyhemoglobin O2 Delivery Device Vent Setting Inspired O2 Critical Value Sodium 135 L Potassium 2.5 L* D Chloride 104 D Carbon Dioxide 21.2 Anion Gap 10 BUN 34 H Creatinine 1.08 H Estimated GFR 53 L POC Glucose Random Glucose 177 H D Lactic Acid Calcium 7.2 L* Prot Corrected Calcium 7.5 L Phosphorus 3.1 Magnesium 1.7 Total Bilirubin AST ALT Alkaline Phosphatase Total Creatine Kinase 45 Total Protein 6.5 Albumin Nasal Screen MRSA (PCR) Mrsa detected MTS Gel Crossmatch Bld Prod Order Comment 12/15/17 12/15/17 12/15/17 13:30 13:50 14:16 WBC RBC Hgb Hct MCV MCH MCHC RDW Plt Count MPV Prelim Diff (Auto) Neut % (Auto) Lymph % (Auto) [place] % (Auto) Eos % (Auto) Baso % (Auto) Neut # (Auto) Lymph # (Auto) [place] # (Auto) Eos # (Auto) Baso # (Auto) WBC Differential Seg Neuts % (Manual) Band Neuts % (Manual) Lymphocytes % (Manual) Monocytes % (Manual) Abs Neuts (Manual) Differential Comment Toxic Granulation Toxic Vacuolation Platelet Estimate Platelet Morphology PT INR Puncture Site Right radial Patient Temperature 98.6 O2 Saturation 97 ABG pH 7.24 L* ABG pCO2 46 H ABG pO2 231 H ABG HCO3 19 L ABG O2 Content 19.8 ABG Base Excess -7.0 L ABG Methemoglobin 1.2 Aroldo Test Present Hemoglobin 14.1 Carboxyhemoglobin 0.4 O2 Delivery Device Ventilator Vent Setting Prvc/ac Inspired O2 50 Critical Value Yes Sodium Potassium Chloride Carbon Dioxide Anion Gap BUN Creatinine Estimated GFR POC Glucose 184 H Random Glucose Lactic Acid 3.3 H Calcium Prot Corrected Calcium Phosphorus Magnesium Total Bilirubin AST ALT Alkaline Phosphatase Total Creatine Kinase Total Protein Albumin Nasal Screen MRSA (PCR) MTS Gel Crossmatch Bld Prod Order Comment 12/15/17 12/15/17 12/15/17 16:42 16:51 17:00 WBC RBC Hgb Hct MCV MCH MCHC RDW Plt Count MPV Prelim Diff (Auto) Neut % (Auto) Lymph % (Auto) [place] % (Auto) Eos % (Auto) Baso % (Auto) Neut # (Auto) Lymph # (Auto) [place] # (Auto) Eos # (Auto) Baso # (Auto) WBC Differential Seg Neuts % (Manual) Band Neuts % (Manual) Lymphocytes % (Manual) Monocytes % (Manual) Abs Neuts (Manual) Differential Comment Toxic Granulation Toxic Vacuolation Platelet Estimate Platelet Morphology PT INR Puncture Site Art line Patient Temperature 98.6 O2 Saturation 97 ABG pH 7.37 L ABG pCO2 32 L ABG pO2 265 H ABG HCO3 18 L ABG O2 Content 13.7 ABG Base Excess -5.8 L ABG Methemoglobin 1.6 Aroldo Test Hemoglobin 9.6 L Carboxyhemoglobin 0.8 O2 Delivery Device Ventilator Vent Setting Inspired O2 Critical Value No Sodium Potassium Chloride Carbon Dioxide Anion Gap BUN Creatinine Estimated GFR POC Glucose Random Glucose Lactic Acid Calcium Prot Corrected Calcium Phosphorus Magnesium Total Bilirubin AST ALT Alkaline Phosphatase Total Creatine Kinase Total Protein Albumin Nasal Screen MRSA (PCR) MTS Gel Crossmatch See Detail See Detail Bld Prod Order Comment Cancelled 12/15/17 12/15/17 12/15/17 17:00 20:14 20:16 WBC RBC Hgb Hct MCV MCH MCHC RDW Plt Count MPV Prelim Diff (Auto) Neut % (Auto) Lymph % (Auto) [place] % (Auto) Eos % (Auto) Baso % (Auto) Neut # (Auto) Lymph # (Auto) [place] # (Auto) Eos # (Auto) Baso # (Auto) WBC Differential Seg Neuts % (Manual) Band Neuts % (Manual) Lymphocytes % (Manual) Monocytes % (Manual) Abs Neuts (Manual) Differential Comment Toxic Granulation Toxic Vacuolation Platelet Estimate Platelet Morphology PT INR Puncture Site Patient Temperature O2 Saturation ABG pH ABG pCO2 ABG pO2 ABG HCO3 ABG O2 Content ABG Base Excess ABG Methemoglobin Aroldo Test Hemoglobin Carboxyhemoglobin O2 Delivery Device Vent Setting Inspired O2 Critical Value Sodium 138 Potassium 3.5 D Chloride 108 H Carbon Dioxide 22.2 Anion Gap 8 BUN 32 H Creatinine 0.82 Estimated GFR 73 L POC Glucose 31 L* 32 L* Random Glucose 58 L D Lactic Acid Calcium 6.6 L* Prot Corrected Calcium 7.4 L* Phosphorus Magnesium Total Bilirubin AST ALT Alkaline Phosphatase Total Creatine Kinase Total Protein 5.5 L D Albumin Nasal Screen MRSA (PCR) MTS Gel Crossmatch Bld Prod Order Comment 12/15/17 12/15/17 12/15/17 20:37 22:04 22:04 WBC RBC Hgb 7.2 L Hct MCV MCH MCHC RDW Plt Count MPV Prelim Diff (Auto) Neut % (Auto) Lymph % (Auto) [place] % (Auto) Eos % (Auto) Baso % (Auto) Neut # (Auto) Lymph # (Auto) [place] # (Auto) Eos # (Auto) Baso # (Auto) WBC Differential Seg Neuts % (Manual) Band Neuts % (Manual) Lymphocytes % (Manual) Monocytes % (Manual) Abs Neuts (Manual) Differential Comment Toxic Granulation Toxic Vacuolation Platelet Estimate Platelet Morphology PT INR Puncture Site Patient Temperature O2 Saturation ABG pH ABG pCO2 ABG pO2 ABG HCO3 ABG O2 Content ABG Base Excess ABG Methemoglobin Aroldo Test Hemoglobin Carboxyhemoglobin O2 Delivery Device Vent Setting Inspired O2 Critical Value Sodium 140 Potassium 3.7 Chloride 107 Carbon Dioxide 23.9 Anion Gap 9 BUN 33 H Creatinine 0.82 Estimated GFR 73 L POC Glucose 87 Random Glucose 72 L Lactic Acid Calcium 6.6 L* Prot Corrected Calcium 7.3 L* Phosphorus Magnesium 1.8 Total Bilirubin AST ALT Alkaline Phosphatase Total Creatine Kinase Total Protein 5.6 L Albumin Nasal Screen MRSA (PCR) MTS Gel Crossmatch Bld Prod Order Comment 12/15/17 12/16/17 12/16/17 22:31 01:08 01:32 WBC RBC Hgb Hct MCV MCH MCHC RDW Plt Count MPV Prelim Diff (Auto) Neut % (Auto) Lymph % (Auto) [place] % (Auto) Eos % (Auto) Baso % (Auto) Neut # (Auto) Lymph # (Auto) [place] # (Auto) Eos # (Auto) Baso # (Auto) WBC Differential Seg Neuts % (Manual) Band Neuts % (Manual) Lymphocytes % (Manual) Monocytes % (Manual) Abs Neuts (Manual) Differential Comment Toxic Granulation Toxic Vacuolation Platelet Estimate Platelet Morphology PT INR Puncture Site Patient Temperature O2 Saturation ABG pH ABG pCO2 ABG pO2 ABG HCO3 ABG O2 Content ABG Base Excess ABG Methemoglobin Aroldo Test Hemoglobin Carboxyhemoglobin O2 Delivery Device Vent Setting Inspired O2 Critical Value Sodium Potassium Chloride Carbon Dioxide Anion Gap BUN Creatinine Estimated GFR POC Glucose 42 L* 59 L Random Glucose Lactic Acid Calcium Prot Corrected Calcium Phosphorus Magnesium Total Bilirubin AST ALT Alkaline Phosphatase Total Creatine Kinase Total Protein Albumin Nasal Screen MRSA (PCR) MTS Gel Crossmatch See Detail Bld Prod Order Comment Cancelled 12/16/17 12/16/17 12/16/17 01:57 01:58 02:00 WBC RBC Hgb Hct MCV MCH MCHC RDW Plt Count MPV Prelim Diff (Auto) Neut % (Auto) Lymph % (Auto) [place] % (Auto) Eos % (Auto) Baso % (Auto) Neut # (Auto) Lymph # (Auto) [place] # (Auto) Eos # (Auto) Baso # (Auto) WBC Differential Seg Neuts % (Manual) Band Neuts % (Manual) Lymphocytes % (Manual) Monocytes % (Manual) Abs Neuts (Manual) Differential Comment Toxic Granulation Toxic Vacuolation Platelet Estimate Platelet Morphology PT INR Puncture Site Patient Temperature O2 Saturation ABG pH ABG pCO2 ABG pO2 ABG HCO3 ABG O2 Content ABG Base Excess ABG Methemoglobin Aroldo Test Hemoglobin Carboxyhemoglobin O2 Delivery Device Vent Setting Inspired O2 Critical Value Sodium Potassium Chloride Carbon Dioxide Anion Gap BUN Creatinine Estimated GFR POC Glucose 57 L 261 H 293 H Random Glucose Lactic Acid Calcium Prot Corrected Calcium Phosphorus Magnesium Total Bilirubin AST ALT Alkaline Phosphatase Total Creatine Kinase Total Protein Albumin Nasal Screen MRSA (PCR) MTS Gel Crossmatch Bld Prod Order Comment 12/16/17 12/16/17 12/16/17 02:05 02:57 04:10 WBC 12.6 H RBC 3.23 L Hgb 9.0 L Hct 26.7 L MCV 82.6 MCH 28.0 MCHC 33.9 RDW 14.5 Plt Count 244 MPV 8.4 Prelim Diff (Auto) Slide review pending Neut % (Auto) 81.7 H Lymph % (Auto) 16.7 [place] % (Auto) 0.8 Eos % (Auto) 0.4 Baso % (Auto) 0.4 Neut # (Auto) 10.3 H Lymph # (Auto) 2.1 [place] # (Auto) 0.1 Eos # (Auto) 0.0 Baso # (Auto) 0.1 WBC Differential Manual diff final Seg Neuts % (Manual) 60 Band Neuts % (Manual) 19 H Lymphocytes % (Manual) 18 Monocytes % (Manual) 3 Abs Neuts (Manual) 10.0 H Differential Comment . Toxic Granulation 1+ H Toxic Vacuolation Present H Platelet Estimate Normal Platelet Morphology Normal PT INR Puncture Site Patient Temperature O2 Saturation ABG pH ABG pCO2 ABG pO2 ABG HCO3 ABG O2 Content ABG Base Excess ABG Methemoglobin Aroldo Test Hemoglobin Carboxyhemoglobin O2 Delivery Device Vent Setting Inspired O2 Critical Value Sodium Potassium Chloride Carbon Dioxide Anion Gap BUN Creatinine Estimated GFR POC Glucose 275 H Random Glucose 284 H D Lactic Acid Calcium Prot Corrected Calcium Phosphorus Magnesium Total Bilirubin AST ALT Alkaline Phosphatase Total Creatine Kinase Total Protein Albumin Nasal Screen MRSA (PCR) MTS Gel Crossmatch Bld Prod Order Comment 12/16/17 12/16/17 12/16/17 04:10 04:10 04:10 WBC RBC Hgb Hct MCV MCH MCHC RDW Plt Count MPV Prelim Diff (Auto) Neut % (Auto) Lymph % (Auto) [place] % (Auto) Eos % (Auto) Baso % (Auto) Neut # (Auto) Lymph # (Auto) [place] # (Auto) Eos # (Auto) Baso # (Auto) WBC Differential Seg Neuts % (Manual) Band Neuts % (Manual) Lymphocytes % (Manual) Monocytes % (Manual) Abs Neuts (Manual) Differential Comment Toxic Granulation Toxic Vacuolation Platelet Estimate Platelet Morphology PT INR Puncture Site Patient Temperature O2 Saturation ABG pH ABG pCO2 ABG pO2 ABG HCO3 ABG O2 Content ABG Base Excess ABG Methemoglobin Aroldo Test Hemoglobin Carboxyhemoglobin O2 Delivery Device Vent Setting Inspired O2 Critical Value Sodium 137 Potassium 4.0 Chloride 106 Carbon Dioxide 22.2 Anion Gap 9 BUN 30 H Creatinine 0.92 Estimated GFR 64 L POC Glucose 243 H Random Glucose 238 H Lactic Acid 2.0 Calcium 7.0 L* Prot Corrected Calcium 7.8 L Phosphorus Magnesium Total Bilirubin 0.8 AST 11 L ALT 10 Alkaline Phosphatase 337 H Total Creatine Kinase Total Protein 5.5 L Albumin 1.0 L Nasal Screen MRSA (PCR) MTS Gel Crossmatch Bld Prod Order Comment 12/16/17 12/16/17 12/16/17 05:08 06:10 07:06 WBC RBC Hgb Hct MCV MCH MCHC RDW Plt Count MPV Prelim Diff (Auto) Neut % (Auto) Lymph % (Auto) [place] % (Auto) Eos % (Auto) Baso % (Auto) Neut # (Auto) Lymph # (Auto) [place] # (Auto) Eos # (Auto) Baso # (Auto) WBC Differential Seg Neuts % (Manual) Band Neuts % (Manual) Lymphocytes % (Manual) Monocytes % (Manual) Abs Neuts (Manual) Differential Comment Toxic Granulation Toxic Vacuolation Platelet Estimate Platelet Morphology PT INR Puncture Site Patient Temperature O2 Saturation ABG pH ABG pCO2 ABG pO2 ABG HCO3 ABG O2 Content ABG Base Excess ABG Methemoglobin Aroldo Test Hemoglobin Carboxyhemoglobin O2 Delivery Device Vent Setting Inspired O2 Critical Value Sodium Potassium Chloride Carbon Dioxide Anion Gap BUN Creatinine Estimated GFR POC Glucose 243 H 262 H 270 H Random Glucose Lactic Acid Calcium Prot Corrected Calcium Phosphorus Magnesium Total Bilirubin AST ALT Alkaline Phosphatase Total Creatine Kinase Total Protein Albumin Nasal Screen MRSA (PCR) MTS Gel Crossmatch Bld Prod Order Comment 12/16/17 12/16/17 08:29 12:02 WBC RBC Hgb Hct MCV MCH MCHC RDW Plt Count MPV Prelim Diff (Auto) Neut % (Auto) Lymph % (Auto) [place] % (Auto) Eos % (Auto) Baso % (Auto) Neut # (Auto) Lymph # (Auto) [place] # (Auto) Eos # (Auto) Baso # (Auto) WBC Differential Seg Neuts % (Manual) Band Neuts % (Manual) Lymphocytes % (Manual) Monocytes % (Manual) Abs Neuts (Manual) Differential Comment Toxic Granulation Toxic Vacuolation Platelet Estimate Platelet Morphology PT INR Puncture Site Patient Temperature O2 Saturation ABG pH ABG pCO2 ABG pO2 ABG HCO3 ABG O2 Content ABG Base Excess ABG Methemoglobin Aroldo Test Hemoglobin Carboxyhemoglobin O2 Delivery Device Vent Setting Inspired O2 Critical Value Sodium Potassium Chloride Carbon Dioxide Anion Gap BUN Creatinine Estimated GFR POC Glucose 271 H 200 H Random Glucose Lactic Acid Calcium Prot Corrected Calcium Phosphorus Magnesium Total Bilirubin AST ALT Alkaline Phosphatase Total Creatine Kinase Total Protein Albumin Nasal Screen MRSA (PCR) MTS Gel Crossmatch Bld Prod Order Comment - Imaging Imaging: ITS Impressions Chest X-Ray 12/15/17 00:00 CONCLUSION: 1. Endotracheal tube tip only measures 1.4 cm from the damian. 2. Left subclavian central line distal tip is in the SVC and there is no pneumothorax. 3. Nasogastric tube distal tip is near the GE junction and therefore consider advancement. 4. Focal airspace consolidation in the left lower lung zone. Femur X-Ray 12/15/17 07:05 CONCLUSION: No fracture is identified. There is extensive soft tissue air in the right gluteal region and extending into the proximal and mid posterior thigh. The soft tissue air suggests an open wound. Pelvis X-Ray 12/15/17 07:05 CONCLUSION: No fracture is identified. However, there is extensive soft tissue air in the left gluteal region and left proximal thigh. Pelvis CT 12/15/17 07:52 CONCLUSION: 1. No fracture is identified. 2. Extensive subcutaneous and soft tissue gas bilaterally, left greater than right. It is most severe in the left gluteal region and extends into the proximal posterior thigh. The soft tissue air dissects through the gluteal musculature. There is adjacent subcutaneous edema. Assessment and Plan - Assessment (1) Necrotizing fasciitis of pelvic region and thigh Code(s): M72.6 - Necrotizing fasciitis Status: Acute Plan: 52yo female with multiple medical comorbidities, s/p debridement of nec fasc critically ill to OR for VAC change this week when stable
--- NOTE | 2017-12-16 14:14 | P.DIET ---
Nutritional Evaluation Type of nutrition evaluation: initial Nutrition consult regarding: Tube Feeding Objective - Diagnosis Extensive Subcutaneous air left hip - Objective % IBW: 102 Body Weight Used for Calculations: Actual (64.9 kg) Energy Needs - Lower Range (kCal/kg): 30 Energy Needs - Upper Range (kCal/kg): 35 Lower Limit kCal/kg (kCals): 1,947 Upper Limit kCal/kg (kCals): 2,272 Lower Limit Protein Factor (Grams per Kg): 1.2 Upper Limit Protein Factor (Grams per Kg): 1.6 Lower Protein Needs (Protein): 78 Upper Protein Needs (Protein): 104 Dietitian Reviewed in Medical Record: Curent medications, Intake & Output, Labs , Medical history, Tube feeding, Wound/DTI Diet Order: NPO Objective Comments: PMH includes: Hep C, DM, PAD, HTN, Osteomyelitis, Decubitus Ulcer; here w/Stage IV sacral decubitus s/p debridement of Necrotizing tissue Fasciitis POC Glucose 243, 262, 270, 271, 200 Meds Include: Novolog, Levemir, Beneprotein 2-pkt TID, Propofol Assessment Assessment: Pt is at high nutrition risk r/t increased needs for wound healing, clinical status and need for TF'ing. To best meet pt's assessed needs for TF'ing, Rec Glucerna 1.5 @ goal rate 55ml/hr to offer 1980 kcal, 109g protein and 1002ml free water. Rec to discontinue the Beneprotein r/t protein needs will be greater than 100% w/TF'ing at goal rate. Rec the addition of Alek 1-packet BID via feeding tube to assist in wound healing. Propofol provides some additional kcals(1.1 kcal/ml)when running. Labs reviewed. Additional Recs to follow r/t Clinical Course. Recommendations: 1. To best meet pt's assessed needs for TF'ing, Rec Glucerna 1.5 @ goal rate 55ml/hr 2. Rec to discontinue the Beneprotein r/t protein needs will be greater than 100 % w/TF'ing at goal rate 3. Rec the addition of Alek 1-packet BID via feeding tube to assist in wound healing 4. Propofol provides some additional kcals(1.1 kcal/ml)when running 5. Additional Recs to follow r/t Clinical Course Dietitian to Monitor: Lab values, Glucose level, Intake & Output, Tube feeding tolerance, Weight change, Wound/skin status, Medical course
--- NOTE | 2017-12-16 14:18 | P.PNID ---
Subjective Remarks: Patient went for debridement yesterday. Large area debrided at the buttock back and thigh. Afebrile. Sedated. On the ventilator. Currently on 4 mcg of Levophed. Blood culture has no growth. This is a 52-year-old white female who was brought to the emergency department after she fell at home. The patient was noted to have profound weakness. She was evaluated in the emergency department and at that time had normal temperature and white blood cell count was also normal. She underwent CT scan of the abdomen and pelvis that showed extensive subcutaneous and soft tissue gas bilaterally with the left greater than right, most severe in the left gluteal region and extending into the proximal posterior thigh soft tissue and air-fluid dissecting through the gluteal musculature. The patient has a history of diabetes mellitus. Allergies/Adverse Reactions: Allergies No Known Allergies Allergy (Verified 12/15/17 07:54) Objective Vital Signs 12/15/17 15:08 12/15/17 15:30 12/15/17 20:00 Temperature 97.5 F L Pulse Rate 92 H Respiratory Rate 18 18 Blood Pressure Pulse Oximetry 100 100 100 12/15/17 21:32 12/15/17 22:00 12/15/17 23:29 Temperature 97.5 F L Pulse Rate 90 85 Respiratory Rate 18 12 Blood Pressure 122/61 Pulse Oximetry 100 100 12/15/17 23:46 12/16/17 00:00 12/16/17 04:00 Temperature 97.6 F 97.6 F 97.6 F Pulse Rate 83 84 90 Respiratory Rate 18 18 18 Blood Pressure Pulse Oximetry 100 100 100 12/16/17 08:00 12/16/17 10:04 12/16/17 13:13 Temperature Pulse Rate Respiratory Rate 18 18 Blood Pressure Pulse Oximetry 100 100 Intake & Output 12/15/17 12/16/17 12/16/17 18:59 06:59 18:59 Intake Total 5685 / 5685 2395 / 2395 1000 / 1000 Output Total 1100 / 1100 1350 / 1350 Balance 4585 / 4585 1045 / 1045 1000 / 1000 Weight 64.9 kg 71.8 kg Intake: IV 3685 / 3685 1994 / 1994 1000 / 1000 D5W/LR Inj 1,000 ML @ 150 mls/ 1000 / 1000 1000 / 1000 hr IV.CONT .Q6H40M [facility] Rx#: [id number] NS Inj 1,000 ML @ 125 mls/hr IV 250 / 250 .CONT .Q8H [facility] Rx#:[id number] Sodium Bicarbonate 8.4% Inj 150 375 / 375 MEQ In Sterile Water for Inj 850 ML @ 150 mls/hr IV.CONT . Q6H40M [facility] Rx#:[id number] Calcium Gluconate Inj 2 GM In 120 / 120 NS Inj 100 ML @ 120 mls/hr IV. SIG ONCE ONE Rx#:[id number] Maxipime Inj 2,000 MG In NS Inj 200 / 200 100 ML @ 200 mls/hr IV.SIG Q12H [facility] Rx#:[id number] Cleocin 900 mg/NS Premix 900 mg 50 / 50 100 / 100 In 50 ml @ 100 mls/hr IV.SIG Q8H [facility] Rx#:[id number] Zosyn 4.5 GM Premix 4.5 gm In 100 / 100 100 ml @ 200 mls/hr IV.SIG ONCE ONE Rx#:[id number] KCl 20 mEq Premix Inj 20 meq In 200 / 200 100 ml @ 50 mls/hr IV.SIG Q2H [facility] Rx#:[id number] NS Inj 1,000 ML @ Wide Open IV. 3000 / 3000 SIG BOLUS [facility] Rx#:[id number] Vancomycin Inj 1,000 MG In NS 250 / 250 Inj 250 ML @ 250 mls/hr IV.SIG LOOP CUTTER [facility] Rx#:[id number] Anesthesia Amount 1999 / 1999 Intake (Blood Product) Amt 400 / 400 Rbc As-3 Leukoreduced Unit 400 / 400 [id number] Output: Estimated Blood Loss 500 / 500 500 / 500 Urine Amount (Catheter) 600 / 600 450 / 450 1 600 / 600 450 / 450 Gastric Drainage 150 / 150 Nasogastric Tube 150 / 150 Wound Vac Amount 250 / 250 Posterior Sacrum 250 / 250 Other: Mode Setting Posterior Sacrum Continuous Continuous Weight On Admission 61.23 kg 12/15/17 06:30 Blood - Peripheral Aerobic Blood Culture - Preliminary No growth in 1 day 12/15/17 06:30 Blood - Peripheral Anaerobic Blood Culture - Preliminary No growth in 1 day 12/15/17 06:45 Blood - Peripheral Aerobic Blood Culture - Preliminary No growth in 1 day 12/15/17 06:45 Blood - Peripheral Anaerobic Blood Culture - Preliminary No growth in 1 day Lab - Hematology Results 12/15/17 12/15/1712/16/18 06:45 22:04 04:10 WBC 10.2 12.6 H RBC 3.13 L 3.23 L Hgb 8.8 L 7.2 L 9.0 L Hct 26.6 L 26.7 L MCV 84.9 82.6 MCH 28.0 28.0 MCHC 33.1 33.9 RDW 14.7 14.5 Plt Count 235 244 MPV 9.3 8.4 Prelim Diff (Auto) Slide review pending Neut % (Auto) 90.0 H 81.7 H Lymph % (Auto) 7.6 L 16.7 [place] % (Auto) 1.2 0.8 Eos % (Auto) 0.9 0.4 Baso % (Auto) 0.3 0.4 Neut # (Auto) 9.2 H 10.3 H Lymph # (Auto) 0.8 L 2.1 [place] # (Auto) 0.1 0.1 Eos # (Auto) 0.1 0.0 Baso # (Auto) 0.0 0.1 WBC Differential . Manual diff final Seg Neuts % (Manual) 60 Band Neuts % (Manual) 19 H Lymphocytes % (Manual) 18 Monocytes % (Manual) 3 Abs Neuts (Manual) 10.0 H Differential Comment Auto diff final . Toxic Granulation 1+ H Toxic Vacuolation Present H Platelet Estimate Normal Platelet Morphology Normal Lab - Chemistry Results 12/15/17 12/15/17 12/15/17 06:45 06:45 07:04 Sodium 127 L Potassium 3.6 Chloride 93 L Carbon Dioxide 22.5 Anion Gap 12 BUN 39 H Creatinine 1.42 H Estimated GFR 39 L POC Glucose Greater than 600 H* Random Glucose 610 H* Lactic Acid 3.1 H Calcium 7.3 L* Prot Corrected Calcium 7.5 L Phosphorus Magnesium 1.9 Total Bilirubin 0.5 AST 18 ALT 14 Alkaline Phosphatase 536 H Total Creatine Kinase 74 Troponin I Less than 0.02 L Total Protein 6.8 Albumin 1.3 L Lipase 28 L Beta-Hydroxybutyric Acd 0.31 12/15/17 12/15/17 12/15/17 09:06 10:08 11:23 Sodium Potassium Chloride Carbon Dioxide Anion Gap BUN Creatinine Estimated GFR POC Glucose Greater than 600 H* 513 H* 411 H Random Glucose Lactic Acid Calcium Prot Corrected Calcium Phosphorus Magnesium Total Bilirubin AST ALT Alkaline Phosphatase Total Creatine Kinase Troponin I Total Protein Albumin Lipase Beta-Hydroxybutyric Acd 12/15/17 12/15/17 12/15/17 12:05 12:57 13:30 Sodium 135 L Potassium 2.5 L* D Chloride 104 D Carbon Dioxide 21.2 Anion Gap 10 BUN 34 H Creatinine 1.08 H Estimated GFR 53 L POC Glucose 321 H 265 H Random Glucose 177 H D Lactic Acid Calcium 7.2 L* Prot Corrected Calcium 7.5 L Phosphorus 3.1 Magnesium 1.7 Total Bilirubin AST ALT Alkaline Phosphatase Total Creatine Kinase 45 Troponin I Total Protein 6.5 Albumin Lipase Beta-Hydroxybutyric Acd 12/15/17 12/15/17 12/15/17 13:30 14:16 17:00 Sodium 138 Potassium 3.5 D Chloride 108 H Carbon Dioxide 22.2 Anion Gap 8 BUN 32 H Creatinine 0.82 Estimated GFR 73 L POC Glucose 184 H Random Glucose 58 L D Lactic Acid 3.3 H Calcium 6.6 L* Prot Corrected Calcium 7.4 L* Phosphorus Magnesium Total Bilirubin AST ALT Alkaline Phosphatase Total Creatine Kinase Troponin I Total Protein 5.5 L D Albumin Lipase Beta-Hydroxybutyric Acd 12/15/17 12/15/17 12/15/17 20:14 20:16 20:37 Sodium Potassium Chloride Carbon Dioxide Anion Gap BUN Creatinine Estimated GFR POC Glucose 31 L* 32 L* 87 Random Glucose Lactic Acid Calcium Prot Corrected Calcium Phosphorus Magnesium Total Bilirubin AST ALT Alkaline Phosphatase Total Creatine Kinase Troponin I Total Protein Albumin Lipase Beta-Hydroxybutyric Acd 12/15/17 12/16/17 12/16/17 22:04 01:08 01:32 Sodium 140 Potassium 3.7 Chloride 107 Carbon Dioxide 23.9 Anion Gap 9 BUN 33 H Creatinine 0.82 Estimated GFR 73 L POC Glucose 42 L* 59 L Random Glucose 72 L Lactic Acid Calcium 6.6 L* Prot Corrected Calcium 7.3 L* Phosphorus Magnesium 1.8 Total Bilirubin AST ALT Alkaline Phosphatase Total Creatine Kinase Troponin I Total Protein 5.6 L Albumin Lipase Beta-Hydroxybutyric Acd 12/16/17 12/16/17 12/16/17 01:57 01:58 02:00 Sodium Potassium Chloride Carbon Dioxide Anion Gap BUN Creatinine Estimated GFR POC Glucose 57 L 261 H 293 H Random Glucose Lactic Acid Calcium Prot Corrected Calcium Phosphorus Magnesium Total Bilirubin AST ALT Alkaline Phosphatase Total Creatine Kinase Troponin I Total Protein Albumin Lipase Beta-Hydroxybutyric Acd 12/16/17 12/16/17 12/16/17 02:05 02:57 04:10 Sodium 137 Potassium 4.0 Chloride 106 Carbon Dioxide 22.2 Anion Gap 9 BUN 30 H Creatinine 0.92 Estimated GFR 64 L POC Glucose 275 H Random Glucose 284 H D 238 H Lactic Acid Calcium 7.0 L* Prot Corrected Calcium 7.8 L Phosphorus Magnesium Total Bilirubin 0.8 AST 11 L ALT 10 Alkaline Phosphatase 337 H Total Creatine Kinase Troponin I Total Protein 5.5 L Albumin 1.0 L Lipase Beta-Hydroxybutyric Acd 12/16/17 12/16/17 12/16/17 04:10 04:10 05:08 Sodium Potassium Chloride Carbon Dioxide Anion Gap BUN Creatinine Estimated GFR POC Glucose 243 H 243 H Random Glucose Lactic Acid 2.0 Calcium Prot Corrected Calcium Phosphorus Magnesium Total Bilirubin AST ALT Alkaline Phosphatase Total Creatine Kinase Troponin I Total Protein Albumin Lipase Beta-Hydroxybutyric Acd 12/16/17 12/16/17 12/16/17 06:10 07:06 08:29 Sodium Potassium Chloride Carbon Dioxide Anion Gap BUN Creatinine Estimated GFR POC Glucose 262 H 270 H 271 H Random Glucose Lactic Acid Calcium Prot Corrected Calcium Phosphorus Magnesium Total Bilirubin AST ALT Alkaline Phosphatase Total Creatine Kinase Troponin I Total Protein Albumin Lipase Beta-Hydroxybutyric Acd 12/16/17 12:02 Sodium Potassium Chloride Carbon Dioxide Anion Gap BUN Creatinine Estimated GFR POC Glucose 200 H Random Glucose Lactic Acid Calcium Prot Corrected Calcium Phosphorus Magnesium Total Bilirubin AST ALT Alkaline Phosphatase Total Creatine Kinase Troponin I Total Protein Albumin Lipase Beta-Hydroxybutyric Acd Imaging: ITS Impressions Chest X-Ray 12/15/17 00:00 CONCLUSION: 1. Endotracheal tube tip only measures 1.4 cm from the damian. 2. Left subclavian central line distal tip is in the SVC and there is no pneumothorax. 3. Nasogastric tube distal tip is near the GE junction and therefore consider advancement. 4. Focal airspace consolidation in the left lower lung zone. Femur X-Ray 12/15/17 07:05 CONCLUSION: No fracture is identified. There is extensive soft tissue air in the right gluteal region and extending into the proximal and mid posterior thigh. The soft tissue air suggests an open wound. Pelvis X-Ray 12/15/17 07:05 CONCLUSION: No fracture is identified. However, there is extensive soft tissue air in the left gluteal region and left proximal thigh. Pelvis CT 10/27/18 07:52 CONCLUSION: 1. No fracture is identified. 2. Extensive subcutaneous and soft tissue gas bilaterally, left greater than right. It is most severe in the left gluteal region and extends into the proximal posterior thigh. The soft tissue air dissects through the gluteal musculature. There is adjacent subcutaneous edema. Physical Exam: PHYSICAL EXAMINATION: GENERAL: Unresponsive. Sedated. HEENT: Unable to assess fully. The sclerae has edema. Oropharynx intubated. NECK: Supple. No adenopathy or swelling. LUNGS: Decreased breath sounds. HEART: Regular S1 and S2. A 1-2/6 systolic murmur at the left sternal border. ABDOMEN: Bowel sounds present, soft, no tenderness appreciated. BACK: Surgical wound post debridement across the lower back, buttock and thighs. EXTREMITIES: No clubbing, no cyanosis or edema. Left foot is cold to touch. SKIN: No diffuse rash. NEUROLOGIC: Unable to assess. PSYCHIATRIC: Unable to assess. Assessment and Plan - Plan IMPRESSION: 1. Necrotizing fasciitis of the back buttock and thighs. 2. Septic shock. 3. Acute respiratory failure. 4. Chronic kidney disease. RECOMMENDATIONS: 1. Continue vancomycin. 2. Continue clindamycin. 3. Continue cefepime for gram-negative coverage. 4. Monitor cultures.
[2017-12-16] MEDS: Propofol 1000 mg/100 ml Inj 1,000 MG/100 ML BOTTLE IV.CONT PRN (15:12)
--- NOTE | 2017-12-16 15:36 | MP ---
cc: Ventura Bazzi MD DATE OF OPERATION: 12/15/2017 PREOPERATIVE DIAGNOSIS: Necrotizing fasciitis lower back, buttock, posterior bilateral thighs. POSTOPERATIVE DIAGNOSIS: Necrotizing fasciitis lower back, buttock, posterior bilateral thighs. PROCEDURE PERFORMED: Wide local excision with incisional and excisional debridement of skin, subcutaneous tissue and fascia of back, buttock, and bilateral posterior thighs, 45 cm x 15 cm x 1.5 cm deep. SURGEON: Ventura Bazzi MD TORNADO CHASER: Shaina. ANESTHESIA: GETA. INTRAVENOUS FLUIDS: See anesthesia sheet. ESTIMATED BLOOD LOSS: 300 mL. DRAINS: Hemovac placement. COMPLICATIONS: None. WOUND CLASSIFICATION: Dirty, contaminated. SPECIMENS: Subcutaneous and fascia tissue sent for culture and biopsy. FINDINGS: Frankly necrotic muscle with fascia and subcutaneous tissue to bilateral upper posterior thighs, buttock and lower back. COMPLICATIONS: None. INDICATIONS: The patient is a 52-year-old female with multiple medical issues including diabetes, who presented with hyperglycemia, blood sugars in the 600s. The patient had history of sacral decubitus ulcer, noted to have severe back pain and hyperglycemia came to the emergency department. Further evaluation included a CT scan showing gas in the subcutaneous tissues and fascia, patient acutely ill in critical condition, intubated for airway protection and planned for emergent surgery including wide debridement. DETAILS OF PROCEDURE: The patient was taken to the operating suite. The patient was placed in the prone position and prepped and draped in usual sterile fashion. She is noted to already be intubated and induction of general endotracheal anesthesia. Brief timeout done, stating correct patient, procedure, surgical site; we were all in agreement with this. Attention was directed to the buttock and sacral decubitus area. The patient had approximately 4 x 4 cm opening where his coccyx was, and sacral decubiti. There was noted to be david purulent drainage and putrid smelling discharge from this area. A 10 blade was done with a scalpel to incise horizontally across the upper buttock and lower back area. Further dissection with electro Bovie electrocautery down through subcutaneous tissues and fascia. The fascia noted to be frankly and necrotic, along with gluteus lenny deep musculature necrotic areas as well. This was excisionally debrided, area approximately 25 cm x 15 cm was done, traversing the extent of lower back, buttock, and posterior thigh. Irrigation done with 4 liters of normal saline. Hemostasis was obtained with electro Bovie electrocautery. Once the significant necrotic tissue was removed, wound VAC was cut to size, again standing 45 x 15 cm, 1.5 cm deep. The right lower incision was partially reapproximated using 6 #2 Prolene vertical mattress sutures. The sponge count appropriately. Danielle were used to transfix sponge. A plastic drape placed. Track pad placed as well. Good suction. No evidence of leaking. The patient was transferred to bed remained intubated, taken in critical condition to ICU. All lap counts were correct. The patient tolerated the procedure. MD PAM Cordova/lb , 12:05 PM , 12:16 PM
[2017-12-16] MEDS: fentaNYL 10 mcg/mL Premix Drip 2,500 MCG/250 ML BAG IV.SIG PRN (21:45)
[2017-12-17] MEDS: Oral Hygiene Kit OROPHARYNG SCH ×4 (00:36→15:48)
[2017-12-17] MEDS: Insulin NovoLOG Aspart Correctional Sugar Inj SQ SCH ×4 (00:36→18:46)
[2017-12-17] MEDS: Dextrose 5%/Lactated Ringer's 1,000 ML IV.CONT SCH ×5 (00:56→19:50)
[2017-12-17] MEDS: Norepinephrine Inj 4 MG in Sodium Chlor 0.9% Inj 246 ML IV.SIG PRN ×2 (01:40→13:03)
[2017-12-17] MEDS: Dextrose 50% in Water 50 ML Vial IV.PUSH PRN (02:03)
[2017-12-17] MEDS: Chlorhexidine Gluconate 2% 1 Pack (2 Cloths) TOPICAL SCH (03:11)
[2017-12-17] MEDS: Clindamycin 900 mg/NS Premix 900 MG/50 ML PIGGYBACK IV.SIG SCH ×3 (03:52→19:52)
[2017-12-17 04:28] LABS: Baso # (Auto) 0.1 th/mm3 (0.0-0.2); Baso % (Auto) 0.4 % (0.0-2.0); Eos % (Auto) 0.3 % (0.0-4.0); Hematocrit 21.9 % (35.0-46.0); Hemoglobin 7.2 gm/dL (11.6-15.3); Lymph # (Auto) 2.5 th/mm3 (1.0-4.8); Lymph % (Auto) 16.8 % (9.0-44.0); Mean Corpuscular Hemoglobin 27.4 pg (27.0-34.0); Mean Corpuscular Volume 83.1 fL (80.0-100.0); Mono # (Auto) 0.2 th/mm3 (0.0-0.9); Mono % (Auto) 1.7 % (0.0-8.0); Neut # (Auto) 12.2 th/mm3 (1.8-7.7); Neut % (Auto) 80.8 % (16.0-70.0); Platelet Count 165 th/mm3 (150-450); Red Blood Count 2.63 mil/mm3 (4.00-5.30); Red Cell Distribution Width 14.9 % (11.6-17.2); White Blood Count 15.1 th/mm3 (4.0-11.0)
[2017-12-17] MEDS: Vasopressin Inj 40 UNIT in Sodium Chlor 0.9% Inj 98 ML IV.CONT SCH ×2 (04:39→21:20)
[2017-12-17 05:02] LABS: Albumin 0.8 g/dL (3.4-5.0); Calcium 6.4 mg/dL (8.5-10.1); Carbon Dioxide 21.5 meq/L (21.0-32.0); Potassium 3.6 meq/L (3.5-5.1); Total Protein 5.1 g/dL (6.4-8.2)
[2017-12-17] MEDS ORDERED: Calcium Chloride Inj 1 GM/10 ML Syringe IV.PUSH ONE (05:15)
--- NOTE | 2017-12-17 05:38 | XR ---
EXAM DATE: 12/17/2017 5:33 AM EDT AGE/SEX: 52 years / Female INDICATIONS: Hypoxemia, respiratory failure. CLINICAL DATA: This is the patient's subsequent encounter. Patient reports that signs and symptoms h ave been present for 2 days and indicates a pain score of Nonresponsive. MEDICAL/SURGICAL HISTORY: Diabetes mellitus type II. Peripheral artery disease. Hepatitis C. Benign hypertension. Smoker. Necrotizing fasciitis. section. Central line. COMPARISON: [facility], CHEST 1V SINGLE AP, 12/15/2017. . FINDINGS: Basilar predominant patchy airspace opacities persist, left greater than right and both sides are non significantly changed. No pleural or effusion. No pneumothorax. Endotracheal tube tip is 3.5 cm above the damian. Nasogastric tube courses in the stomach. Left subcl alis central venous catheter has its tip in the superior vena cava. Normal, stable heart size. CONCLUSION: No significant change. Left greater than right parenchymal opacities persist. Electronically signed by: Derek Cash MD 12/17/2017 5:37 AM EDT
[2017-12-17] MEDS ORDERED: Sodium Chlor 0.9% Inj 250 ML IV.SIG SCH (06:00)
[2017-12-17 06:27] LABS: Lymphocytes 15 % (9-44); Metamyelocytes 3 % (0-1)
[2017-12-17 06:28] LABS: Platelet Estimate Normal (Normal); Platelet Morphology Normal (Normal); Toxic Vacuolation Present
[2017-12-17 06:29] LABS: Dohle Bodies Present; RBC Morphology Normal (Normal); Toxic Granulation 1+
[2017-12-17] MEDS: Milrinone Inj 20 MG in Sodium Chlor 0.9% Inj 80 ML IV.CONT SCH (06:41)
[2017-12-17] MEDS: Chlorhexidine 0.12% Oral Kit 15 ML UDC OROPHARYNG SCH ×2 (08:14→19:52)
[2017-12-17] MEDS: Insulin Detemir Inj 1,000 UNIT/10 ML Vial SQ SCH (08:14)
[2017-12-17] MEDS: Beneprotein Powder Packet G-TUBE SCH ×3 (08:14→17:13)
[2017-12-17 08:31] LABS: ABG Base Excess -3.3 mmol/L (-2-2); ABG PCO2 35 mmHg (38-42); ABG PO2 149 mmHg (61-120)
[2017-12-17] MEDS: Senna/Docusate Sodium 8.6/50 MG Tablet PO SCH ×2 (08:43→20:08)
[2017-12-17] MEDS: Famotidine PF Inj 20 MG/2 ML Vial IV.PUSH SCH ×2 (09:44→20:07)
[2017-12-17] MEDS: Propofol 1000 mg/100 ml Inj 1,000 MG/100 ML BOTTLE IV.CONT PRN (10:26)
--- NOTE | 2017-12-17 11:44 | P.CONPAL ---
Consult Service: Palliative Care Requesting Physician: Jesse Vazquez Reason for Consult: a. To assist with evaluation and management of symptoms including: Pain, debility b. To assist medical decision maker(s) with: better understanding of current medical conditions; weighing benefits/burdens of medical treatment options; making medical treatment decisions. Primary Care Provider: UNKNOWN History of Present Illness History of Present Illness: Ms. Russell is a 52-year-old female who presented to [place] ED via EMS on 12/15 with complaints of moderately severe left hip and lower extremity pain status post falling, body aches and generalized weakness. 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 Per EMS, blood glucose prior to arrival was 500. An insulin drip was started in the ED Diagnostic data: * Vital signs: Pulse 100, respirations 20, BP 96/500, oxygen saturation 100% on room air, oral temperature 97.5 * WBC: 10.2, hemoglobin 8.8, hematocrit 26.6, platelets 235, neutrophils 90.0% * PT: 12.7, INR 1.3 * Sodium: 127, potassium 3.6, chloride 93, carbon dioxide 22.5, glucose 610, calcium 7.3, magnesium 1.9 * BUN: 39, creatinine 1.42, GFR 39 * Lactic acid: 3.1 * Total bilirubin: 0.5, AST 18, ALT 14, alkaline phosphatase 536 * Total creatine kinase: 74 * Troponin: <0.02 * Total protein: 6.8, albumin 1.3 * Lipase: 28 * Urinalysis with small amount of occult blood, urobilinogen 2.0, moderate leukocyte esterase, urine RBC 139 and yeast. * MRSA + * Blood cultures: No growth times 2 days * Chest x-ray showed focal airspace consolidation in the left lower lung zone * Hip x-ray revealed extensive soft tissue air in the right gluteal region and extending into the proximal and mid posterior thigh the soft tissue air suggests an open wound. No fracture was identified * Pelvic x-ray showed extensive soft tissue air in the left gluteal region and left proximal thigh * CT pelvis showed extensive subcutaneous and soft tissue gas bilaterally, left greater than right. It is most severe in the left gluteal region and extends into the proximal posterior thigh. The soft tissue air dissects through the gluteal musculature. There is adjacent subcutaneous edema Patient had extreme tenderness in her lower back and buttocks with a midline stage IV sacral decubitus. CT pelvis demonstrated extensive subcutaneous air in the mid sacral region bilaterally, left greater than right, concerning for necrotizing fasciitis or some other gas-forming infection. Patient received Vancomycin, Zosyn and Clindamycin and was transferred to the ICU for ongoing resuscitation. Patient became hemodynamically unstable requiring intubation and mechanical ventilation upon arrival to the ICU. Infectious disease, general surgery and orthopedic surgery were consulted for recommendations. Following aggressive resuscitation for treatment of severe hyperglycemia, septic shock, respiratory failure, metabolic acidosis and MARIO, patient was taken to the OR for extensive wide debridement of the bilateral gluteal and left soft tissue muscle with wound VAC placement. She remains hemodynamically unstable requiring pressor support. Dietary was consulted for recommendations A chest x-ray on 12/17/2017 showed persistent parenchymal opacities, left greater than right. No significant change. Palliative Care was consulted to assist with symptom management and to discuss with the family the benefits and burdens of her current illnesses and the options regarding future care. Function/Cognitive Trajectory: Patient has a history of uncontrolled diabetes and severe peripheral arterial disease related to significant smoking history. Patient has had multiple hospitalizations/ED visits within the past 10 months. 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 Review of Systems unobtainable due to endotracheal tube PMFSH - History History Provided By: Patient, Medical Record - Medical History Medical History: Medical History (Last Updated 12/17/17 @ 11:01 by LUCILA Kam) Decubital ulcer GERD (gastroesophageal reflux disease) History of Clostridium difficile colitis History of diabetic gastroparesis MDRO (multiple drug resistant organisms) resistance Onset Date: ~12/15/17 Peripheral neuropathy Peripheral vascular disease Benign hypertension Diabetes Hepatitis C virus Osteomyelitis - Surgical History Surgical History: Surgical History (Last Reviewed 12/15/17 @ 06:48 by Barbara Poe RN) Hx of AKA (above knee amputation) Previous section - Family History Family History: Family History (Last Reviewed 11/29/17 @ 17:44 by Kimberly York DPM) Mother EtOH dependence Father EtOH dependence - Tobacco History Second Hand Smoke Exposure: Yes Tobacco Use In Past 30 Days: Yes Smoking Status: Former smoker (Per , patient quit approximately 3 weeks ago) Tobacco Type: Cigarettes Packs Per Day: 2 Smoking End Date: 6 months ago - Alcohol History How Often Do You Have a Drink Containing Alcohol: Never - Substance Use History Substance History: No History of Abuse - Immunization History Tetanus Immunization: Unable to Assess Medications and Allergies Active Medications: Active Medications Acetaminophen (Tylenol) 650 mg NG/OG ONCE RICARDO Al Hydroxide/Mg Hydroxide (Milk Of Magnmaira dolores Liq) 30 ml PO Q12H PRN PRN Reason: Mild Constipation Albuterol (Duoneb Neb (Prn)) 1 ampul NEB Q2HR NEB PRN PRN Reason: WHEEZING Bisacodyl (Dulcolax Supp) 10 mg RECTAL DAILY PRN PRN Reason: SEVERE CONSITIPATION Chlorhexidine Gluconate (Chlorhexidine 2% Cloth) 3 pack TOPICAL DAILY@0400 [facility] Stop: 12/21/17 03:59 Last Admin: 12/17/17 03:11 Dose: 3 pack Chlorhexidine Gluconate (Chlorhexidine 2% Cloth) 3 pack TOPICAL DAILY@0400 PRN PRN Reason: Extra cloth needed Stop: 12/21/17 03:59 Chlorhexidine Gluconate (Peridex 0.12% Oral Kit) 15 ml OROPHARYNG BID@0800, 2000 [facility] Last Admin: 12/17/17 08:14 Dose: 15 ml Dextrose (D50w Vial) 50 ml IV.PUSH UNSCH PRN PRN Reason: PER HYPOGLYCEMIA PROTOCOL Last Admin: 12/17/17 02:03 Dose: 50 ml Dextrose (D50w Vial) 50 ml IV.PUSH UNSCH PRN PRN Reason: PER HYPOGLYCEMIA PROTOCOL Last Admin: 12/16/17 18:07 Dose: 50 ml Famotidine (Pepcid Pf Inj) 20 mg IV.PUSH Q12HR [facility] Last Admin: 12/17/17 09:44 Dose: 20 mg Glucagon (Glucagon Inj) 1 mg OTHER PRN PRN PRN Reason: for Hypoglycemia Protocol Hydromorphone HCl (Dilaudid Pf Inj) 1 mg IV.PUSH Q4H PRN PRN Reason: PAIN SCALE 6 TO 10 Clindamycin/Sodium Chloride (Cleocin 900 Mg/Ns Premix) 900 mg in 50 mls @ 100 mls/hr IV.SIG Q8H [facility] Last Infusion: 12/17/17 04:22 Dose: Infused Sodium Chloride (Ns Inj) 1,000 mls @ 0 mls/hr IV.SIG BOLUS RICARDO Norepinephrine Bitartrate 4 mg (/ Sodium Chloride) 250 mls @ 7.5 mls/hr IV.SIG TITRATE PRN; Protocol PRN Reason: Per Protocol Last Titration: 12/17/17 06:20 Dose: 5 mcg/min, 18.75 mls/hr Fentanyl (Fentanyl 10 Mcg/Ml Premix Drip) 2,500 mcg in 250 mls @ 5 mls/hr IV.SIG TITRATE PRN; Protocol PRN Reason: Per Protocol Last Admin: 12/16/17 21:45 Dose: 100 mcg/hr, 10 mls/hr Propofol (Diprivan 1000 Mg/100 Ml Inj) 1,000 mg in 100 mls @ 1.837 mls/hr IV.CONT TITRATE PRN; Protocol PRN Reason: Per Protocol Last Admin: 12/17/17 10:26 Dose: 25 mcg/kg/min, 9.19 mls/hr Cefepime HCl 2,000 mg/ Sodium (Chloride) 100 mls @ 200 mls/hr IV.SIG Q12H [facility] Last Infusion: 12/17/17 02:34 Dose: Infused Dextrose/Lactated Ringer's (D5w/Lr Inj) 1,000 mls @ 150 mls/hr IV.CONT .Q6H40M [facility] Last Admin: 12/17/17 06:41 Dose: 150 mls/hr Magnesium Sulfate 4 gm/ Sodium (Chloride) 100 mls @ 50 mls/hr IV.SIG UNSCH PRN PRN Reason: For Magnesium 0.9 - 1.1 mg/dL Magnesium Sulfate 2 gm/ Sodium (Chloride) 100 mls @ 50 mls/hr IV.SIG UNSCH PRN PRN Reason: For Magnesium 1.2 - 1.6 mg/dL Potassium Chloride (Kcl 20 Meq Premix Inj) 20 meq in 100 mls @ 50 mls/hr IV.SIG Q2H PRN PRN Reason: For Potassium 3.3 - 3.5 mEq/L Potassium Chloride (Kcl 40 Meq Premix Inj) 40 meq in 100 mls @ 25 mls/hr IV.SIG UNSCH PRN PRN Reason: For Potassium 3.3 - 3.5 mEq/L Potassium Chloride (Kcl 20 Meq Premix Inj) 20 meq in 100 mls @ 50 mls/hr IV.SIG Q2H PRN PRN Reason: For Potassium 2.8 - 3.2 mEq/L Potassium Phosphate 30 mmol/ (Sodium Chloride) 260 mls @ 42 mls/hr IV.SIG UNSCH PRN PRN Reason: SEE LABEL COMMENTS Sodium Phosphate 30 mmol/ (Sodium Chloride) 260 mls @ 42 mls/hr IV.SIG UNSCH PRN PRN Reason: For Phosphorus < 2.5 mg/dL Potassium Chloride (Kcl 40 Meq Premix Inj) 40 meq in 100 mls @ 25 mls/hr IV.SIG Q2H PRN PRN Reason: For Potassium 2.8 - 3.2 mEq/L Sodium Chloride (Ns Inj) 1,000 mls @ 999 mls/hr IV.SIG .Q1H1M PRN PRN Reason: HYPOTENSION Vasopressin 40 unit/ Sodium (Chloride) 100 mls @ 6 mls/hr IV.CONT CONT RICARDO; Protocol Last Admin: 12/17/17 04:39 Dose: 0.04 units/min, 6 mls/hr Sodium Chloride (Ns Inj) 1,000 mls @ 0 mls/hr IV.SIG BOLUS RICARDO Milrinone Lactate 20 mg/ (Sodium Chloride) 100 mls @ 5.38 mls/hr IV.CONT .[id number] RICARDO; Protocol Last Admin: 12/17/17 06:41 Dose: 0.25 mcg/kg/min, 5.38 mls/hr Sodium Chloride (Ns Inj) 1,000 mls @ 0 mls/hr IV.SIG BOLUS RICARDO Sodium Chloride (Ns Inj) 250 mls @ 15 mls/hr IV.SIG ONCE RICARDO Stop: 12/17/17 22:39 Last Infusion: 12/17/17 06:20 Dose: Infused Insulin Aspart (Novolog Insulin Correctional Sugar Inj) 0 unit SQ Q6HR RICARDO; Protocol Last Admin: 12/17/17 06:42 Dose: Not Given Insulin Detemir (Levemir Inj) 20 unit SQ BID RICARDO Last Admin: 12/17/17 08:14 Dose: Not Given Lactulose (Lactulose Liq) 30 ml PO DAILY PRN PRN Reason: SEVERE CONSITIPATION Magnesium Oxide (Mag-Ox) 800 mg PO UNSCH PRN PRN Reason: For Magnesium 1.2 - 1.6 mg/dL Miscellaneous Medication () 1 each OROPHARYNG 0000,0400,1200,1600 RICARDO Last Admin: 12/17/17 04:39 Dose: 1 each Mupirocin (Bactroban 2% Oint) 0 applicatio TOPICAL BID [facility] Stop: 12/21/17 08:59 Last Admin: 12/16/17 20:50 Dose: 1 applicatio Ondansetron HCl (Zofran Inj) 4 mg IV.PUSH Q6H PRN PRN Reason: NAUSEA OR VOMITING Potassium Bicarb/Potassium Chloride (K-Lyte Cl Eff) 50 meq PO UNSCH PRN PRN Reason: For Potassium 3.3 - 3.5 mEq/L Potassium Phosphate (K-Phos Original) 2,000 mg PO Q4H PRN PRN Reason: Phosphorus Less Than 2.5 mg/dL Potassium Phosphate (K-Phos Original) 2,000 mg PO UNSCH PRN PRN Reason: SEE LABEL COMMENTS Senna/Docusate Sodium (Belinda-Colace) 1 tab PO BID [facility] Last Admin: 12/17/17 08:43 Dose: Not Given Sennosides (Senokot) 17.2 mg PO Q12H PRN PRN Reason: Moderate Constipation Sodium Chloride (Ns Flush) 2 ml IV.FLUSH BID [facility] Last Admin: 12/17/17 08:14 Dose: 2 ml Sodium Chloride (Ns Flush) 2 ml IV.FLUSH PRN PRN PRN Reason: FLUSH AFTER USING IV ACCESS Terbutaline Sulfate (Brethine Inj) 1 mg SQ UNSCH PRN PRN Reason: For Extravasation Whey (Beneprotein Powder) 2 packet G-TUBE TID [facility] Last Admin: 12/17/17 08:14 Dose: Not Given Allergies Allergy/AdvReac Type Severity Reaction Status Date / Time No Known Allergies Allergy Verified 12/15/17 07:54 Home Medications Medication Instructions Recorded Confirmed Type insulin asp prt-insulin aspart 1 sliding scale dose SUBCUT UD 11/28/17 12/15/17 History [Novolog Mix 70-30 U-100 Insuln] insulin detemir U-100 [Levemir 15 unit SUBCUT QPM 11/28/17 12/15/17 History U-100 Insulin] Advance Directives Documented care wishes: No known documented care wishes have been completed Today's verbally stated goals: Given patient's level of responsiveness, she is unable to participate in establishment of medical treatment goals. Family/friends goals: Patient's verbalizing aggressive goals stating, "I think she would want everything done to live. Besides, it is too early to know. She was like this the last time she was in the hospital too." Has been requests we do "everything "we can to keep her alive. Ethical and Legal Issues: Per [place] statutes, in the absence of written advanced directives healthcare proxy decision making would fall to the patient's , Tyrone Russell. Physical Exam Vital Signs: Vital Signs - 24 hr 12/16/17 10:45 12/16/17 11:00 12/16/17 11:15 Temperature Pulse Rate 85 94 H 89 Respiratory Rate 18 10 L 15 Blood Pressure Pulse Oximetry 100 100 100 12/16/17 11:16 12/16/17 11:30 12/16/17 11:45 Temperature Pulse Rate 91 H 89 89 Respiratory Rate 18 15 8 L Blood Pressure 114/65 Pulse Oximetry 100 100 100 12/16/17 12:00 12/16/17 12:15 12/16/17 12:30 Temperature Pulse Rate 86 84 82 Respiratory Rate 14 18 18 Blood Pressure Pulse Oximetry 100 100 100 12/16/17 12:45 12/16/17 13:00 12/16/17 13:13 Temperature Pulse Rate 82 81 Respiratory Rate 18 18 18 Blood Pressure Pulse Oximetry 100 100 12/16/17 13:15 12/16/17 13:16 12/16/17 13:30 Temperature Pulse Rate 82 82 82 Respiratory Rate 18 18 18 Blood Pressure 120/64 Pulse Oximetry 100 100 100 12/16/17 13:45 12/16/17 14:00 12/16/17 14:15 Temperature Pulse Rate 83 91 H 90 Respiratory Rate 18 18 19 Blood Pressure Pulse Oximetry 100 100 100 12/16/17 14:30 12/16/17 14:45 12/16/17 15:00 Temperature Pulse Rate 93 H 96 H 100 H Respiratory Rate 18 19 18 Blood Pressure Pulse Oximetry 100 100 100 12/16/17 15:15 12/16/17 15:16 12/16/17 15:30 Temperature Pulse Rate 103 H 104 H 106 H Respiratory Rate 18 19 18 Blood Pressure 96/54 L Pulse Oximetry 100 100 100 12/16/17 15:45 12/16/17 16:00 12/16/17 16:15 Temperature Pulse Rate 105 H 106 H 107 H Respiratory Rate 19 20 21 Blood Pressure Pulse Oximetry 100 100 100 12/16/17 16:30 12/16/17 16:45 12/16/17 17:00 Temperature 98 F Pulse Rate 107 H 107 H 109 H Respiratory Rate 19 19 19 Blood Pressure Pulse Oximetry 100 100 100 12/16/17 17:15 12/16/17 17:16 12/16/17 17:27 Temperature Pulse Rate 108 H 108 H Respiratory Rate 19 20 19 Blood Pressure 93/51 L Pulse Oximetry 100 100 100 12/16/17 17:30 12/16/17 17:45 12/16/17 18:00 Temperature Pulse Rate 111 H 115 H 118 H Respiratory Rate 20 19 21 Blood Pressure Pulse Oximetry 100 100 100 12/16/17 18:15 12/16/17 18:30 12/16/17 18:45 Temperature Pulse Rate 119 H 121 H 120 H Respiratory Rate 22 25 H 22 Blood Pressure Pulse Oximetry 100 100 100 12/16/17 19:00 12/16/17 19:15 12/16/17 19:16 Temperature Pulse Rate 118 H 118 H 118 H Respiratory Rate 17 21 18 Blood Pressure 131/64 Pulse Oximetry 100 100 100 12/16/17 19:30 12/16/17 19:45 12/16/17 20:00 Temperature 99.2 F Pulse Rate 120 H 121 H 125 H Respiratory Rate 17 21 18 Blood Pressure Pulse Oximetry 100 100 100 12/16/17 20:15 12/16/17 20:30 12/16/17 20:45 Temperature Pulse Rate 124 H 124 H 123 H Respiratory Rate 17 18 18 Blood Pressure Pulse Oximetry 100 100 100 12/16/17 21:00 12/16/17 21:15 12/16/17 21:16 Temperature Pulse Rate 120 H 118 H 116 H Respiratory Rate 18 19 19 Blood Pressure 116/56 L Pulse Oximetry 100 100 100 12/16/17 21:30 12/16/17 21:45 12/16/17 22:00 Temperature Pulse Rate 117 H 118 H 116 H Respiratory Rate 19 20 10 L Blood Pressure Pulse Oximetry 100 100 100 12/16/17 22:15 12/16/17 22:24 12/16/17 22:30 Temperature Pulse Rate 117 H 117 H 116 H Respiratory Rate 9 L 19 8 L Blood Pressure 103/55 L Pulse Oximetry 99 100 100 12/16/17 22:45 12/16/17 22:51 12/16/17 23:00 Temperature Pulse Rate 114 H 117 H 118 H Respiratory Rate 18 18 21 Blood Pressure 106/58 L 118/56 L Pulse Oximetry 99 97 96 12/16/17 23:15 12/16/17 23:30 12/16/17 23:45 Temperature Pulse Rate 120 H 117 H 126 H Respiratory Rate 29 H 30 H 35 H Blood Pressure 98/56 L 103/57 L 105/55 L Pulse Oximetry 95 95 94 L 12/16/17 23:55 12/17/17 00:00 12/17/17 00:15 Temperature 99 F 99 F Pulse Rate 126 H 125 H 123 H Respiratory Rate 18 19 18 Blood Pressure 102/57 L 106/62 102/58 L Pulse Oximetry 94 L 95 87 L 12/17/17 00:30 12/17/17 00:33 12/17/17 00:45 Temperature Pulse Rate 122 H 117 H Respiratory Rate 20 18 22 Blood Pressure 131/63 124/63 Pulse Oximetry 83 L 94 L 94 L 12/17/17 01:00 12/17/17 01:15 12/17/17 01:30 Temperature Pulse Rate 114 H 110 H 120 H Respiratory Rate 18 18 15 Blood Pressure 124/60 109/55 L 126/59 L Pulse Oximetry 93 L 93 L 92 L 12/17/17 01:45 12/17/17 02:00 12/17/17 02:15 Temperature Pulse Rate 121 H 123 H 118 H Respiratory Rate 18 18 17 Blood Pressure 132/61 124/57 L 151/68 H Pulse Oximetry 91 L 91 L 91 L 12/17/17 02:30 12/17/17 02:45 12/17/17 03:00 Temperature Pulse Rate 124 H 123 H 118 H Respiratory Rate 19 18 18 Blood Pressure 125/56 L 109/57 L 107/57 L Pulse Oximetry 91 L 91 L 92 L 12/17/17 03:15 12/17/17 03:30 12/17/17 03:45 Temperature Pulse Rate 116 H 110 H 108 H Respiratory Rate 18 18 18 Blood Pressure 104/56 L 104/58 L 123/57 L Pulse Oximetry 92 L 93 L 92 L 12/17/17 04:00 12/17/17 04:04 12/17/17 04:15 Temperature 99.4 F Pulse Rate 103 H 107 H Respiratory Rate 18 18 18 Blood Pressure 127/62 147/68 H Pulse Oximetry 93 L 92 L 92 L 12/17/17 04:30 12/17/17 04:45 12/17/17 05:00 Temperature Pulse Rate 124 H 113 H 106 H Respiratory Rate 23 18 18 Blood Pressure 138/67 135/64 125/60 Pulse Oximetry 91 L 92 L 93 L 12/17/17 05:15 12/17/17 05:39 12/17/17 05:50 Temperature 100.3 F H 99.4 F Pulse Rate 102 H 104 H 106 H Respiratory Rate 18 18 18 Blood Pressure 133/65 120/67 168/67 H Pulse Oximetry 93 L 91 L 89 L 12/17/17 08:00 12/17/17 08:10 12/17/17 08:35 Temperature 98.5 F Pulse Rate 95 H Respiratory Rate 18 18 Blood Pressure Pulse Oximetry 97 97 96 12/17/17 09:00 Temperature Pulse Rate 94 H Respiratory Rate Blood Pressure Pulse Oximetry I&O: Intake & Output 12/15/17 12/16/17 12/17/17 12/18/17 06:59 06:59 06:59 06:59 Intake Total 8080 / 8080 7740 / 7740 350 / 350 Output Total 2450 / 2450 2625 / 2625 Balance 5630 / 5630 5115 / 5115 350 / 350 Weight 61.235 kg 71.8 kg 78.3 kg Physical Exam: CONSTITUTIONAL/GENERAL: This is a chronically ill appearing female who looks older than her stated age. currently intubated on mechanical vent TUBES/LINES/DRAINS:ETT, NGT, CVL, Art line, Tristan, SCDs, PIV SKIN: Abrasion on left forehead. Wound VAC in place over lower lumbar region with blood-tinged drainage. Skin temperature appropriate. Not diaphoretic. HEAD: Atraumatic. Normocephalic. EYES: Pupils equal and round, reactive. No scleral icterus. No injection or drainage. ENT: Nose without bleeding or purulent drainage. Throat without visible erythema , exudates, masses, or lesions. NECK: Trachea midline. Supple, nontender. No palpable thyroid enlargement or nodularity. CARDIOVASCULAR: Regular rate and rhythm. No JVD. Palpable pedal pulse L foot. RESPIRATORY/CHEST: Intubated on vent. FiO2 55%. PEEP 8. Breath sounds equal bilaterally. GASTROINTESTINAL: Abdomen soft, non-tender, nondistended. No guarding. Bowel sounds present. GENITOURINARY: Without palpable bladder distension. Tristan catheter in place. MUSCULOSKELETAL: Status post right BKA. Left foot cool to touch; several toes with necrotic ulcerations on left foot. LYMPHATICS: No palpable cervical or supraclavicular adenopathy. NEUROLOGICAL: Sedated. Cough and gag intact PSYCHIATRIC: Unable to assess given current level of responsiveness Diagnostic Tests Laboratory: Laboratory Results - last 72 hr 12/15/17 12/15/17 12/15/17 06:45 06:45 06:45 WBC 10.2 RBC 3.13 L Hgb 8.8 L Hct 26.6 L MCV 84.9 MCH 28.0 MCHC 33.1 RDW 14.7 Plt Count 235 MPV 9.3 Prelim Diff (Auto) Neut % (Auto) 90.0 H Lymph % (Auto) 7.6 L [place] % (Auto) 1.2 Eos % (Auto) 0.9 Baso % (Auto) 0.3 Neut # (Auto) 9.2 H Lymph # (Auto) 0.8 L [place] # (Auto) 0.1 Eos # (Auto) 0.1 Baso # (Auto) 0.0 WBC Differential . Seg Neuts % (Manual) Band Neuts % (Manual) Lymphocytes % (Manual) Monocytes % (Manual) Metamyelocytes % (Man) Abs Neuts (Manual) Differential Comment Auto diff final Toxic Granulation Toxic Vacuolation Dohle Bodies Platelet Estimate Platelet Morphology RBC Morphology PT INR Puncture Site Patient Temperature O2 Saturation ABG pH ABG pCO2 ABG pO2 ABG HCO3 ABG O2 Content ABG Base Excess ABG Methemoglobin Aroldo Test VBG pH VBG pCO2 VBG pO2 VBG HCO3 VBG O2 Saturation VBG O2 Content VBG Base Excess VBG Carboxyhemoglobin VBG Methemoglobin Hemoglobin Carboxyhemoglobin O2 Delivery Device Vent Setting Inspired O2 Critical Value Sodium 127 L Potassium 3.6 Chloride 93 L Carbon Dioxide 22.5 Anion Gap 12 BUN 39 H Creatinine 1.42 H Estimated GFR 39 L POC Glucose Random Glucose 610 H* Lactic Acid 3.1 H Calcium 7.3 L* Prot Corrected Calcium 7.5 L Phosphorus Magnesium 1.9 Total Bilirubin 0.5 AST 18 ALT 14 Alkaline Phosphatase 536 H Total Creatine Kinase 74 Troponin I Less than 0.02 L Total Protein 6.8 Albumin 1.3 L Lipase 28 L Beta-Hydroxybutyric Acd 0.31 Urine Color Urine Clarity Urine pH Ur Specific [place] Urine Protein Urine Glucose (UA) Urine Ketones Urine Occult Blood Urine Nitrate Urine Bilirubin Urine Urobilinogen Ur Leukocyte Esterase Urine RBC Urine WBC Urine Yeast Micro UA Comment Ur Microscopic Review Urine Culture Comments Nasal Screen MRSA (PCR) Blood Type Antibody Screen MTS Gel Crossmatch Bld Prod Order Comment 12/15/17 12/15/17 12/15/17 06:45 07:04 07:33 WBC RBC Hgb Hct MCV MCH MCHC RDW Plt Count MPV Prelim Diff (Auto) Neut % (Auto) Lymph % (Auto) [place] % (Auto) Eos % (Auto) Baso % (Auto) Neut # (Auto) Lymph # (Auto) [place] # (Auto) Eos # (Auto) Baso # (Auto) WBC Differential Seg Neuts % (Manual) Band Neuts % (Manual) Lymphocytes % (Manual) Monocytes % (Manual) Metamyelocytes % (Man) Abs Neuts (Manual) Differential Comment Toxic Granulation Toxic Vacuolation Dohle Bodies Platelet Estimate Platelet Morphology RBC Morphology PT INR Puncture Site Line Patient Temperature 98.6 O2 Saturation ABG pH ABG pCO2 ABG pO2 ABG HCO3 ABG O2 Content ABG Base Excess ABG Methemoglobin Aroldo Test VBG pH 7.43 H VBG pCO2 37 L VBG pO2 29 L* VBG HCO3 24 VBG O2 Saturation 49 L VBG O2 Content 6.1 L VBG Base Excess 0.3 VBG Carboxyhemoglobin 2.4 VBG Methemoglobin 0.6 Hemoglobin 8.8 L Carboxyhemoglobin O2 Delivery Device Vent Setting Inspired O2 21 Critical Value Yes Sodium Potassium Chloride Carbon Dioxide Anion Gap BUN Creatinine Estimated GFR POC Glucose Greater than 600 H* Random Glucose Lactic Acid Calcium Prot Corrected Calcium Phosphorus Magnesium Total Bilirubin AST ALT Alkaline Phosphatase Total Creatine Kinase Troponin I Total Protein Albumin Lipase Beta-Hydroxybutyric Acd Urine Color Urine Clarity Urine pH Ur Specific [place] Urine Protein Urine Glucose (UA) Urine Ketones Urine Occult Blood Urine Nitrate Urine Bilirubin Urine Urobilinogen Ur Leukocyte Esterase Urine RBC Urine WBC Urine Yeast Micro UA Comment Ur Microscopic Review Urine Culture Comments Nasal Screen MRSA (PCR) Blood Type O Negative Antibody Screen Negative MTS Gel Crossmatch Bld Prod Order Comment 12/15/17 12/15/17 12/15/17 08:20 09:06 10:08 WBC RBC Hgb Hct MCV MCH MCHC RDW Plt Count MPV Prelim Diff (Auto) Neut % (Auto) Lymph % (Auto) [place] % (Auto) Eos % (Auto) Baso % (Auto) Neut # (Auto) Lymph # (Auto) [place] # (Auto) Eos # (Auto) Baso # (Auto) WBC Differential Seg Neuts % (Manual) Band Neuts % (Manual) Lymphocytes % (Manual) Monocytes % (Manual) Metamyelocytes % (Man) Abs Neuts (Manual) Differential Comment Toxic Granulation Toxic Vacuolation Dohle Bodies Platelet Estimate Platelet Morphology RBC Morphology PT INR Puncture Site Patient Temperature O2 Saturation ABG pH ABG pCO2 ABG pO2 ABG HCO3 ABG O2 Content ABG Base Excess ABG Methemoglobin Aroldo Test VBG pH VBG pCO2 VBG pO2 VBG HCO3 VBG O2 Saturation VBG O2 Content VBG Base Excess VBG Carboxyhemoglobin VBG Methemoglobin Hemoglobin Carboxyhemoglobin O2 Delivery Device Vent Setting Inspired O2 Critical Value Sodium Potassium Chloride Carbon Dioxide Anion Gap BUN Creatinine Estimated GFR POC Glucose Greater than 600 H* 513 H* Random Glucose Lactic Acid Calcium Prot Corrected Calcium Phosphorus Magnesium Total Bilirubin AST ALT Alkaline Phosphatase Total Creatine Kinase Troponin I Total Protein Albumin Lipase Beta-Hydroxybutyric Acd Urine Color Yellow Urine Clarity Turbid H Urine pH 5.0 Ur Specific [place] 1.015 Urine Protein Negative Urine Glucose (UA) 500 or greater Urine Ketones Negative Urine Occult Blood Small H Urine Nitrate Negative Urine Bilirubin Negative Urine Urobilinogen 2.0 H Ur Leukocyte Esterase Moderate H Urine RBC 139 H Urine WBC 3 Urine Yeast Many H Micro UA Comment Cath-culture not ind Ur Microscopic Review Not Reportable Urine Culture Comments Cath-cult not ind Nasal Screen MRSA (PCR) Blood Type Antibody Screen MTS Gel Crossmatch Bld Prod Order Comment 12/15/17 12/15/17 12/15/17 11:23 12:05 12:30 WBC RBC Hgb Hct MCV MCH MCHC RDW Plt Count MPV Prelim Diff (Auto) Neut % (Auto) Lymph % (Auto) [place] % (Auto) Eos % (Auto) Baso % (Auto) Neut # (Auto) Lymph # (Auto) [place] # (Auto) Eos # (Auto) Baso # (Auto) WBC Differential Seg Neuts % (Manual) Band Neuts % (Manual) Lymphocytes % (Manual) Monocytes % (Manual) Metamyelocytes % (Man) Abs Neuts (Manual) Differential Comment Toxic Granulation Toxic Vacuolation Dohle Bodies Platelet Estimate Platelet Morphology RBC Morphology PT INR Puncture Site Patient Temperature O2 Saturation ABG pH ABG pCO2 ABG pO2 ABG HCO3 ABG O2 Content ABG Base Excess ABG Methemoglobin Aroldo Test VBG pH VBG pCO2 VBG pO2 VBG HCO3 VBG O2 Saturation VBG O2 Content VBG Base Excess VBG Carboxyhemoglobin VBG Methemoglobin Hemoglobin Carboxyhemoglobin O2 Delivery Device Vent Setting Inspired O2 Critical Value Sodium Potassium Chloride Carbon Dioxide Anion Gap BUN Creatinine Estimated GFR POC Glucose 411 H 321 H Random Glucose Lactic Acid Calcium Prot Corrected Calcium Phosphorus Magnesium Total Bilirubin AST ALT Alkaline Phosphatase Total Creatine Kinase Troponin I Total Protein Albumin Lipase Beta-Hydroxybutyric Acd Urine Color Urine Clarity Urine pH Ur Specific [place] Urine Protein Urine Glucose (UA) Urine Ketones Urine Occult Blood Urine Nitrate Urine Bilirubin Urine Urobilinogen Ur Leukocyte Esterase Urine RBC Urine WBC Urine Yeast Micro UA Comment Ur Microscopic Review Urine Culture Comments Nasal Screen MRSA (PCR) Mrsa detected Blood Type Antibody Screen MTS Gel Crossmatch Bld Prod Order Comment 12/15/17 12/15/17 12/15/17 12:57 13:30 13:30 WBC RBC Hgb Hct MCV MCH MCHC RDW Plt Count MPV Prelim Diff (Auto) Neut % (Auto) Lymph % (Auto) [place] % (Auto) Eos % (Auto) Baso % (Auto) Neut # (Auto) Lymph # (Auto) [place] # (Auto) Eos # (Auto) Baso # (Auto) WBC Differential Seg Neuts % (Manual) Band Neuts % (Manual) Lymphocytes % (Manual) Monocytes % (Manual) Metamyelocytes % (Man) Abs Neuts (Manual) Differential Comment Toxic Granulation Toxic Vacuolation Dohle Bodies Platelet Estimate Platelet Morphology RBC Morphology PT 12.7 H INR 1.3 Puncture Site Patient Temperature O2 Saturation ABG pH ABG pCO2 ABG pO2 ABG HCO3 ABG O2 Content ABG Base Excess ABG Methemoglobin Aroldo Test VBG pH VBG pCO2 VBG pO2 VBG HCO3 VBG O2 Saturation VBG O2 Content VBG Base Excess VBG Carboxyhemoglobin VBG Methemoglobin Hemoglobin Carboxyhemoglobin O2 Delivery Device Vent Setting Inspired O2 Critical Value Sodium 135 L Potassium 2.5 L* D Chloride 104 D Carbon Dioxide 21.2 Anion Gap 10 BUN 34 H Creatinine 1.08 H Estimated GFR 53 L POC Glucose 265 H Random Glucose 177 H D Lactic Acid Calcium 7.2 L* Prot Corrected Calcium 7.5 L Phosphorus 3.1 Magnesium 1.7 Total Bilirubin AST ALT Alkaline Phosphatase Total Creatine Kinase 45 Troponin I Total Protein 6.5 Albumin Lipase Beta-Hydroxybutyric Acd Urine Color Urine Clarity Urine pH Ur Specific [place] Urine Protein Urine Glucose (UA) Urine Ketones Urine Occult Blood Urine Nitrate Urine Bilirubin Urine Urobilinogen Ur Leukocyte Esterase Urine RBC Urine WBC Urine Yeast Micro UA Comment Ur Microscopic Review Urine Culture Comments Nasal Screen MRSA (PCR) Blood Type Antibody Screen MTS Gel Crossmatch Bld Prod Order Comment 12/15/17 12/15/17 12/15/17 13:30 13:50 14:16 WBC RBC Hgb Hct MCV MCH MCHC RDW Plt Count MPV Prelim Diff (Auto) Neut % (Auto) Lymph % (Auto) [place] % (Auto) Eos % (Auto) Baso % (Auto) Neut # (Auto) Lymph # (Auto) [place] # (Auto) Eos # (Auto) Baso # (Auto) WBC Differential Seg Neuts % (Manual) Band Neuts % (Manual) Lymphocytes % (Manual) Monocytes % (Manual) Metamyelocytes % (Man) Abs Neuts (Manual) Differential Comment Toxic Granulation Toxic Vacuolation Dohle Bodies Platelet Estimate Platelet Morphology RBC Morphology PT INR Puncture Site Right radial Patient Temperature 98.6 O2 Saturation 97 ABG pH 7.24 L* ABG pCO2 46 H ABG pO2 231 H ABG HCO3 19 L ABG O2 Content 19.8 ABG Base Excess -7.0 L ABG Methemoglobin 1.2 Aroldo Test Present VBG pH VBG pCO2 VBG pO2 VBG HCO3 VBG O2 Saturation VBG O2 Content VBG Base Excess VBG Carboxyhemoglobin VBG Methemoglobin Hemoglobin 14.1 Carboxyhemoglobin 0.4 O2 Delivery Device Ventilator Vent Setting Prvc/ac Inspired O2 50 Critical Value Yes Sodium Potassium Chloride Carbon Dioxide Anion Gap BUN Creatinine Estimated GFR POC Glucose 184 H Random Glucose Lactic Acid 3.3 H Calcium Prot Corrected Calcium Phosphorus Magnesium Total Bilirubin AST ALT Alkaline Phosphatase Total Creatine Kinase Troponin I Total Protein Albumin Lipase Beta-Hydroxybutyric Acd Urine Color Urine Clarity Urine pH Ur Specific [place] Urine Protein Urine Glucose (UA) Urine Ketones Urine Occult Blood Urine Nitrate Urine Bilirubin Urine Urobilinogen Ur Leukocyte Esterase Urine RBC Urine WBC Urine Yeast Micro UA Comment Ur Microscopic Review Urine Culture Comments Nasal Screen MRSA (PCR) Blood Type Antibody Screen MTS Gel Crossmatch Bld Prod Order Comment 12/15/17 12/15/17 12/15/17 16:42 16:51 17:00 WBC RBC Hgb Hct MCV MCH MCHC RDW Plt Count MPV Prelim Diff (Auto) Neut % (Auto) Lymph % (Auto) [place] % (Auto) Eos % (Auto) Baso % (Auto) Neut # (Auto) Lymph # (Auto) [place] # (Auto) Eos # (Auto) Baso # (Auto) WBC Differential Seg Neuts % (Manual) Band Neuts % (Manual) Lymphocytes % (Manual) Monocytes % (Manual) Metamyelocytes % (Man) Abs Neuts (Manual) Differential Comment Toxic Granulation Toxic Vacuolation Dohle Bodies Platelet Estimate Platelet Morphology RBC Morphology PT INR Puncture Site Art line Patient Temperature 98.6 O2 Saturation 97 ABG pH 7.37 L ABG pCO2 32 L ABG pO2 265 H ABG HCO3 18 L ABG O2 Content 13.7 ABG Base Excess -5.8 L ABG Methemoglobin 1.6 Aroldo Test VBG pH VBG pCO2 VBG pO2 VBG HCO3 VBG O2 Saturation VBG O2 Content VBG Base Excess VBG Carboxyhemoglobin VBG Methemoglobin Hemoglobin 9.6 L Carboxyhemoglobin 0.8 O2 Delivery Device Ventilator Vent Setting Inspired O2 Critical Value No Sodium Potassium Chloride Carbon Dioxide Anion Gap BUN Creatinine Estimated GFR POC Glucose Random Glucose Lactic Acid Calcium Prot Corrected Calcium Phosphorus Magnesium Total Bilirubin AST ALT Alkaline Phosphatase Total Creatine Kinase Troponin I Total Protein Albumin Lipase Beta-Hydroxybutyric Acd Urine Color Urine Clarity Urine pH Ur Specific [place] Urine Protein Urine Glucose (UA) Urine Ketones Urine Occult Blood Urine Nitrate Urine Bilirubin Urine Urobilinogen Ur Leukocyte Esterase Urine RBC Urine WBC Urine Yeast Micro UA Comment Ur Microscopic Review Urine Culture Comments Nasal Screen MRSA (PCR) Blood Type Antibody Screen MTS Gel Crossmatch See Detail See Detail Bld Prod Order Comment Cancelled 12/15/17 12/15/17 12/15/17 17:00 20:14 20:16 WBC RBC Hgb Hct MCV MCH MCHC RDW Plt Count MPV Prelim Diff (Auto) Neut % (Auto) Lymph % (Auto) [place] % (Auto) Eos % (Auto) Baso % (Auto) Neut # (Auto) Lymph # (Auto) [place] # (Auto) Eos # (Auto) Baso # (Auto) WBC Differential Seg Neuts % (Manual) Band Neuts % (Manual) Lymphocytes % (Manual) Monocytes % (Manual) Metamyelocytes % (Man) Abs Neuts (Manual) Differential Comment Toxic Granulation Toxic Vacuolation Dohle Bodies Platelet Estimate Platelet Morphology RBC Morphology PT INR Puncture Site Patient Temperature O2 Saturation ABG pH ABG pCO2 ABG pO2 ABG HCO3 ABG O2 Content ABG Base Excess ABG Methemoglobin Aroldo Test VBG pH VBG pCO2 VBG pO2 VBG HCO3 VBG O2 Saturation VBG O2 Content VBG Base Excess VBG Carboxyhemoglobin VBG Methemoglobin Hemoglobin Carboxyhemoglobin O2 Delivery Device Vent Setting Inspired O2 Critical Value Sodium 138 Potassium 3.5 D Chloride 108 H Carbon Dioxide 22.2 Anion Gap 8 BUN 32 H Creatinine 0.82 Estimated GFR 73 L POC Glucose 31 L* 32 L* Random Glucose 58 L D Lactic Acid Calcium 6.6 L* Prot Corrected Calcium 7.4 L* Phosphorus Magnesium Total Bilirubin AST ALT Alkaline Phosphatase Total Creatine Kinase Troponin I Total Protein 5.5 L D Albumin Lipase Beta-Hydroxybutyric Acd Urine Color Urine Clarity Urine pH Ur Specific [place] Urine Protein Urine Glucose (UA) Urine Ketones Urine Occult Blood Urine Nitrate Urine Bilirubin Urine Urobilinogen Ur Leukocyte Esterase Urine RBC Urine WBC Urine Yeast Micro UA Comment Ur Microscopic Review Urine Culture Comments Nasal Screen MRSA (PCR) Blood Type Antibody Screen MTS Gel Crossmatch Bld Prod Order Comment 12/15/17 12/15/17 12/15/17 20:37 22:04 22:04 WBC RBC Hgb 7.2 L Hct MCV MCH MCHC RDW Plt Count MPV Prelim Diff (Auto) Neut % (Auto) Lymph % (Auto) [place] % (Auto) Eos % (Auto) Baso % (Auto) Neut # (Auto) Lymph # (Auto) [place] # (Auto) Eos # (Auto) Baso # (Auto) WBC Differential Seg Neuts % (Manual) Band Neuts % (Manual) Lymphocytes % (Manual) Monocytes % (Manual) Metamyelocytes % (Man) Abs Neuts (Manual) Differential Comment Toxic Granulation Toxic Vacuolation Dohle Bodies Platelet Estimate Platelet Morphology RBC Morphology PT INR Puncture Site Patient Temperature O2 Saturation ABG pH ABG pCO2 ABG pO2 ABG HCO3 ABG O2 Content ABG Base Excess ABG Methemoglobin Aroldo Test VBG pH VBG pCO2 VBG pO2 VBG HCO3 VBG O2 Saturation VBG O2 Content VBG Base Excess VBG Carboxyhemoglobin VBG Methemoglobin Hemoglobin Carboxyhemoglobin O2 Delivery Device Vent Setting Inspired O2 Critical Value Sodium 140 Potassium 3.7 Chloride 107 Carbon Dioxide 23.9 Anion Gap 9 BUN 33 H Creatinine 0.82 Estimated GFR 73 L POC Glucose 87 Random Glucose 72 L Lactic Acid Calcium 6.6 L* Prot Corrected Calcium 7.3 L* Phosphorus Magnesium 1.8 Total Bilirubin AST ALT Alkaline Phosphatase Total Creatine Kinase Troponin I Total Protein 5.6 L Albumin Lipase Beta-Hydroxybutyric Acd Urine Color Urine Clarity Urine pH Ur Specific [place] Urine Protein Urine Glucose (UA) Urine Ketones Urine Occult Blood Urine Nitrate Urine Bilirubin Urine Urobilinogen Ur Leukocyte Esterase Urine RBC Urine WBC Urine Yeast Micro UA Comment Ur Microscopic Review Urine Culture Comments Nasal Screen MRSA (PCR) Blood Type Antibody Screen MTS Gel Crossmatch Bld Prod Order Comment 12/15/17 12/16/17 12/16/17 22:31 01:08 01:32 WBC RBC Hgb Hct MCV MCH MCHC RDW Plt Count MPV Prelim Diff (Auto) Neut % (Auto) Lymph % (Auto) [place] % (Auto) Eos % (Auto) Baso % (Auto) Neut # (Auto) Lymph # (Auto) [place] # (Auto) Eos # (Auto) Baso # (Auto) WBC Differential Seg Neuts % (Manual) Band Neuts % (Manual) Lymphocytes % (Manual) Monocytes % (Manual) Metamyelocytes % (Man) Abs Neuts (Manual) Differential Comment Toxic Granulation Toxic Vacuolation Dohle Bodies Platelet Estimate Platelet Morphology RBC Morphology PT INR Puncture Site Patient Temperature O2 Saturation ABG pH ABG pCO2 ABG pO2 ABG HCO3 ABG O2 Content ABG Base Excess ABG Methemoglobin Aroldo Test VBG pH VBG pCO2 VBG pO2 VBG HCO3 VBG O2 Saturation VBG O2 Content VBG Base Excess VBG Carboxyhemoglobin VBG Methemoglobin Hemoglobin Carboxyhemoglobin O2 Delivery Device Vent Setting Inspired O2 Critical Value Sodium Potassium Chloride Carbon Dioxide Anion Gap BUN Creatinine Estimated GFR POC Glucose 42 L* 59 L Random Glucose Lactic Acid Calcium Prot Corrected Calcium Phosphorus Magnesium Total Bilirubin AST ALT Alkaline Phosphatase Total Creatine Kinase Troponin I Total Protein Albumin Lipase Beta-Hydroxybutyric Acd Urine Color Urine Clarity Urine pH Ur Specific [place] Urine Protein Urine Glucose (UA) Urine Ketones Urine Occult Blood Urine Nitrate Urine Bilirubin Urine Urobilinogen Ur Leukocyte Esterase Urine RBC Urine WBC Urine Yeast Micro UA Comment Ur Microscopic Review Urine Culture Comments Nasal Screen MRSA (PCR) Blood Type Antibody Screen MTS Gel Crossmatch See Detail Bld Prod Order Comment Cancelled 12/16/17 12/16/17 12/16/17 01:57 01:58 02:00 WBC RBC Hgb Hct MCV MCH MCHC RDW Plt Count MPV Prelim Diff (Auto) Neut % (Auto) Lymph % (Auto) [place] % (Auto) Eos % (Auto) Baso % (Auto) Neut # (Auto) Lymph # (Auto) [place] # (Auto) Eos # (Auto) Baso # (Auto) WBC Differential Seg Neuts % (Manual) Band Neuts % (Manual) Lymphocytes % (Manual) Monocytes % (Manual) Metamyelocytes % (Man) Abs Neuts (Manual) Differential Comment Toxic Granulation Toxic Vacuolation Dohle Bodies Platelet Estimate Platelet Morphology RBC Morphology PT INR Puncture Site Patient Temperature O2 Saturation ABG pH ABG pCO2 ABG pO2 ABG HCO3 ABG O2 Content ABG Base Excess ABG Methemoglobin Aroldo Test VBG pH VBG pCO2 VBG pO2 VBG HCO3 VBG O2 Saturation VBG O2 Content VBG Base Excess VBG Carboxyhemoglobin VBG Methemoglobin Hemoglobin Carboxyhemoglobin O2 Delivery Device Vent Setting Inspired O2 Critical Value Sodium Potassium Chloride Carbon Dioxide Anion Gap BUN Creatinine Estimated GFR POC Glucose 57 L 261 H 293 H Random Glucose Lactic Acid Calcium Prot Corrected Calcium Phosphorus Magnesium Total Bilirubin AST ALT Alkaline Phosphatase Total Creatine Kinase Troponin I Total Protein Albumin Lipase Beta-Hydroxybutyric Acd Urine Color Urine Clarity Urine pH Ur Specific [place] Urine Protein Urine Glucose (UA) Urine Ketones Urine Occult Blood Urine Nitrate Urine Bilirubin Urine Urobilinogen Ur Leukocyte Esterase Urine RBC Urine WBC Urine Yeast Micro UA Comment Ur Microscopic Review Urine Culture Comments Nasal Screen MRSA (PCR) Blood Type Antibody Screen MTS Gel Crossmatch Bld Prod Order Comment 12/16/17 12/16/17 12/16/17 02:05 02:57 04:10 WBC 12.6 H RBC 3.23 L Hgb 9.0 L Hct 26.7 L MCV 82.6 MCH 28.0 MCHC 33.9 RDW 14.5 Plt Count 244 MPV 8.4 Prelim Diff (Auto) Slide review pending Neut % (Auto) 81.7 H Lymph % (Auto) 16.7 [place] % (Auto) 0.8 Eos % (Auto) 0.4 Baso % (Auto) 0.4 Neut # (Auto) 10.3 H Lymph # (Auto) 2.1 [place] # (Auto) 0.1 Eos # (Auto) 0.0 Baso # (Auto) 0.1 WBC Differential Manual diff final Seg Neuts % (Manual) 60 Band Neuts % (Manual) 19 H Lymphocytes % (Manual) 18 Monocytes % (Manual) 3 Metamyelocytes % (Man) Abs Neuts (Manual) 10.0 H Differential Comment . Toxic Granulation 1+ H Toxic Vacuolation Present H Dohle Bodies Platelet Estimate Normal Platelet Morphology Normal RBC Morphology PT INR Puncture Site Patient Temperature O2 Saturation ABG pH ABG pCO2 ABG pO2 ABG HCO3 ABG O2 Content ABG Base Excess ABG Methemoglobin Aroldo Test VBG pH VBG pCO2 VBG pO2 VBG HCO3 VBG O2 Saturation VBG O2 Content VBG Base Excess VBG Carboxyhemoglobin VBG Methemoglobin Hemoglobin Carboxyhemoglobin O2 Delivery Device Vent Setting Inspired O2 Critical Value Sodium Potassium Chloride Carbon Dioxide Anion Gap BUN Creatinine Estimated GFR POC Glucose 275 H Random Glucose 284 H D Lactic Acid Calcium Prot Corrected Calcium Phosphorus Magnesium Total Bilirubin AST ALT Alkaline Phosphatase Total Creatine Kinase Troponin I Total Protein Albumin Lipase Beta-Hydroxybutyric Acd Urine Color Urine Clarity Urine pH Ur Specific [place] Urine Protein Urine Glucose (UA) Urine Ketones Urine Occult Blood Urine Nitrate Urine Bilirubin Urine Urobilinogen Ur Leukocyte Esterase Urine RBC Urine WBC Urine Yeast Micro UA Comment Ur Microscopic Review Urine Culture Comments Nasal Screen MRSA (PCR) Blood Type Antibody Screen MTS Gel Crossmatch Bld Prod Order Comment 12/16/17 12/16/17 12/16/17 04:10 04:10 04:10 WBC RBC Hgb Hct MCV MCH MCHC RDW Plt Count MPV Prelim Diff (Auto) Neut % (Auto) Lymph % (Auto) [place] % (Auto) Eos % (Auto) Baso % (Auto) Neut # (Auto) Lymph # (Auto) [place] # (Auto) Eos # (Auto) Baso # (Auto) WBC Differential Seg Neuts % (Manual) Band Neuts % (Manual) Lymphocytes % (Manual) Monocytes % (Manual) Metamyelocytes % (Man) Abs Neuts (Manual) Differential Comment Toxic Granulation Toxic Vacuolation Dohle Bodies Platelet Estimate Platelet Morphology RBC Morphology PT INR Puncture Site Patient Temperature O2 Saturation ABG pH ABG pCO2 ABG pO2 ABG HCO3 ABG O2 Content ABG Base Excess ABG Methemoglobin Aroldo Test VBG pH VBG pCO2 VBG pO2 VBG HCO3 VBG O2 Saturation VBG O2 Content VBG Base Excess VBG Carboxyhemoglobin VBG Methemoglobin Hemoglobin Carboxyhemoglobin O2 Delivery Device Vent Setting Inspired O2 Critical Value Sodium 137 Potassium 4.0 Chloride 106 Carbon Dioxide 22.2 Anion Gap 9 BUN 30 H Creatinine 0.92 Estimated GFR 64 L POC Glucose 243 H Random Glucose 238 H Lactic Acid 2.0 Calcium 7.0 L* Prot Corrected Calcium 7.8 L Phosphorus Magnesium Total Bilirubin 0.8 AST 11 L ALT 10 Alkaline Phosphatase 337 H Total Creatine Kinase Troponin I Total Protein 5.5 L Albumin 1.0 L Lipase Beta-Hydroxybutyric Acd Urine Color Urine Clarity Urine pH Ur Specific [place] Urine Protein Urine Glucose (UA) Urine Ketones Urine Occult Blood Urine Nitrate Urine Bilirubin Urine Urobilinogen Ur Leukocyte Esterase Urine RBC Urine WBC Urine Yeast Micro UA Comment Ur Microscopic Review Urine Culture Comments Nasal Screen MRSA (PCR) Blood Type Antibody Screen MTS Gel Crossmatch Bld Prod Order Comment 12/16/17 12/16/17 12/16/17 05:08 06:10 07:06 WBC RBC Hgb Hct MCV MCH MCHC RDW Plt Count MPV Prelim Diff (Auto) Neut % (Auto) Lymph % (Auto) [place] % (Auto) Eos % (Auto) Baso % (Auto) Neut # (Auto) Lymph # (Auto) [place] # (Auto) Eos # (Auto) Baso # (Auto) WBC Differential Seg Neuts % (Manual) Band Neuts % (Manual) Lymphocytes % (Manual) Monocytes % (Manual) Metamyelocytes % (Man) Abs Neuts (Manual) Differential Comment Toxic Granulation Toxic Vacuolation Dohle Bodies Platelet Estimate Platelet Morphology RBC Morphology PT INR Puncture Site Patient Temperature O2 Saturation ABG pH ABG pCO2 ABG pO2 ABG HCO3 ABG O2 Content ABG Base Excess ABG Methemoglobin Aroldo Test VBG pH VBG pCO2 VBG pO2 VBG HCO3 VBG O2 Saturation VBG O2 Content VBG Base Excess VBG Carboxyhemoglobin VBG Methemoglobin Hemoglobin Carboxyhemoglobin O2 Delivery Device Vent Setting Inspired O2 Critical Value Sodium Potassium Chloride Carbon Dioxide Anion Gap BUN Creatinine Estimated GFR POC Glucose 243 H 262 H 270 H Random Glucose Lactic Acid Calcium Prot Corrected Calcium Phosphorus Magnesium Total Bilirubin AST ALT Alkaline Phosphatase Total Creatine Kinase Troponin I Total Protein Albumin Lipase Beta-Hydroxybutyric Acd Urine Color Urine Clarity Urine pH Ur Specific [place] Urine Protein Urine Glucose (UA) Urine Ketones Urine Occult Blood Urine Nitrate Urine Bilirubin Urine Urobilinogen Ur Leukocyte Esterase Urine RBC Urine WBC Urine Yeast Micro UA Comment Ur Microscopic Review Urine Culture Comments Nasal Screen MRSA (PCR) Blood Type Antibody Screen MTS Gel Crossmatch Bld Prod Order Comment 12/16/17 12/16/17 12/16/17 08:29 12:02 17:36 WBC RBC Hgb Hct MCV MCH MCHC RDW Plt Count MPV Prelim Diff (Auto) Neut % (Auto) Lymph % (Auto) [place] % (Auto) Eos % (Auto) Baso % (Auto) Neut # (Auto) Lymph # (Auto) [place] # (Auto) Eos # (Auto) Baso # (Auto) WBC Differential Seg Neuts % (Manual) Band Neuts % (Manual) Lymphocytes % (Manual) Monocytes % (Manual) Metamyelocytes % (Man) Abs Neuts (Manual) Differential Comment Toxic Granulation Toxic Vacuolation Dohle Bodies Platelet Estimate Platelet Morphology RBC Morphology PT INR Puncture Site Patient Temperature O2 Saturation ABG pH ABG pCO2 ABG pO2 ABG HCO3 ABG O2 Content ABG Base Excess ABG Methemoglobin Aroldo Test VBG pH VBG pCO2 VBG pO2 VBG HCO3 VBG O2 Saturation VBG O2 Content VBG Base Excess VBG Carboxyhemoglobin VBG Methemoglobin Hemoglobin Carboxyhemoglobin O2 Delivery Device Vent Setting Inspired O2 Critical Value Sodium Potassium Chloride Carbon Dioxide Anion Gap BUN Creatinine Estimated GFR POC Glucose 271 H 200 H 42 L* Random Glucose Lactic Acid Calcium Prot Corrected Calcium Phosphorus Magnesium Total Bilirubin AST ALT Alkaline Phosphatase Total Creatine Kinase Troponin I Total Protein Albumin Lipase Beta-Hydroxybutyric Acd Urine Color Urine Clarity Urine pH Ur Specific [place] Urine Protein Urine Glucose (UA) Urine Ketones Urine Occult Blood Urine Nitrate Urine Bilirubin Urine Urobilinogen Ur Leukocyte Esterase Urine RBC Urine WBC Urine Yeast Micro UA Comment Ur Microscopic Review Urine Culture Comments Nasal Screen MRSA (PCR) Blood Type Antibody Screen MTS Gel Crossmatch Bld Prod Order Comment 12/16/17 12/16/17 12/16/17 17:38 17:47 18:00 WBC RBC Hgb Hct MCV MCH MCHC RDW Plt Count MPV Prelim Diff (Auto) Neut % (Auto) Lymph % (Auto) [place] % (Auto) Eos % (Auto) Baso % (Auto) Neut # (Auto) Lymph # (Auto) [place] # (Auto) Eos # (Auto) Baso # (Auto) WBC Differential Seg Neuts % (Manual) Band Neuts % (Manual) Lymphocytes % (Manual) Monocytes % (Manual) Metamyelocytes % (Man) Abs Neuts (Manual) Differential Comment Toxic Granulation Toxic Vacuolation Dohle Bodies Platelet Estimate Platelet Morphology RBC Morphology PT INR Puncture Site Patient Temperature O2 Saturation ABG pH ABG pCO2 ABG pO2 ABG HCO3 ABG O2 Content ABG Base Excess ABG Methemoglobin Aroldo Test VBG pH VBG pCO2 VBG pO2 VBG HCO3 VBG O2 Saturation VBG O2 Content VBG Base Excess VBG Carboxyhemoglobin VBG Methemoglobin Hemoglobin Carboxyhemoglobin O2 Delivery Device Vent Setting Inspired O2 Critical Value Sodium Potassium Chloride Carbon Dioxide Anion Gap BUN Creatinine Estimated GFR POC Glucose 40 L* 40 L* Random Glucose 34 L* D Lactic Acid Calcium Prot Corrected Calcium Phosphorus Magnesium Total Bilirubin AST ALT Alkaline Phosphatase Total Creatine Kinase Troponin I Total Protein Albumin Lipase Beta-Hydroxybutyric Acd Urine Color Urine Clarity Urine pH Ur Specific [place] Urine Protein Urine Glucose (UA) Urine Ketones Urine Occult Blood Urine Nitrate Urine Bilirubin Urine Urobilinogen Ur Leukocyte Esterase Urine RBC Urine WBC Urine Yeast Micro UA Comment Ur Microscopic Review Urine Culture Comments Nasal Screen MRSA (PCR) Blood Type Antibody Screen MTS Gel Crossmatch Bld Prod Order Comment 12/16/17 12/16/17 12/16/17 18:28 21:07 21:38 WBC RBC Hgb Hct MCV MCH MCHC RDW Plt Count MPV Prelim Diff (Auto) Neut % (Auto) Lymph % (Auto) [place] % (Auto) Eos % (Auto) Baso % (Auto) Neut # (Auto) Lymph # (Auto) [place] # (Auto) Eos # (Auto) Baso # (Auto) WBC Differential Seg Neuts % (Manual) Band Neuts % (Manual) Lymphocytes % (Manual) Monocytes % (Manual) Metamyelocytes % (Man) Abs Neuts (Manual) Differential Comment Toxic Granulation Toxic Vacuolation Dohle Bodies Platelet Estimate Platelet Morphology RBC Morphology PT INR Puncture Site Patient Temperature O2 Saturation ABG pH ABG pCO2 ABG pO2 ABG HCO3 ABG O2 Content ABG Base Excess ABG Methemoglobin Aroldo Test VBG pH VBG pCO2 VBG pO2 VBG HCO3 VBG O2 Saturation VBG O2 Content VBG Base Excess VBG Carboxyhemoglobin VBG Methemoglobin Hemoglobin Carboxyhemoglobin O2 Delivery Device Vent Setting Inspired O2 Critical Value Sodium Potassium Chloride Carbon Dioxide Anion Gap BUN Creatinine Estimated GFR POC Glucose 135 H 44 L* 139 H Random Glucose Lactic Acid Calcium Prot Corrected Calcium Phosphorus Magnesium Total Bilirubin AST ALT Alkaline Phosphatase Total Creatine Kinase Troponin I Total Protein Albumin Lipase Beta-Hydroxybutyric Acd Urine Color Urine Clarity Urine pH Ur Specific [place] Urine Protein Urine Glucose (UA) Urine Ketones Urine Occult Blood Urine Nitrate Urine Bilirubin Urine Urobilinogen Ur Leukocyte Esterase Urine RBC Urine WBC Urine Yeast Micro UA Comment Ur Microscopic Review Urine Culture Comments Nasal Screen MRSA (PCR) Blood Type Antibody Screen MTS Gel Crossmatch Bld Prod Order Comment 12/16/17 12/16/17 12/17/17 23:24 23:44 01:56 WBC RBC Hgb Hct MCV MCH MCHC RDW Plt Count MPV Prelim Diff (Auto) Neut % (Auto) Lymph % (Auto) [place] % (Auto) Eos % (Auto) Baso % (Auto) Neut # (Auto) Lymph # (Auto) [place] # (Auto) Eos # (Auto) Baso # (Auto) WBC Differential Seg Neuts % (Manual) Band Neuts % (Manual) Lymphocytes % (Manual) Monocytes % (Manual) Metamyelocytes % (Man) Abs Neuts (Manual) Differential Comment Toxic Granulation Toxic Vacuolation Dohle Bodies Platelet Estimate Platelet Morphology RBC Morphology PT INR Puncture Site Patient Temperature O2 Saturation ABG pH ABG pCO2 ABG pO2 ABG HCO3 ABG O2 Content ABG Base Excess ABG Methemoglobin Aroldo Test VBG pH VBG pCO2 VBG pO2 VBG HCO3 VBG O2 Saturation VBG O2 Content VBG Base Excess VBG Carboxyhemoglobin VBG Methemoglobin Hemoglobin Carboxyhemoglobin O2 Delivery Device Vent Setting Inspired O2 Critical Value Sodium Potassium 3.7 Chloride Carbon Dioxide Anion Gap BUN Creatinine Estimated GFR POC Glucose 89 66 L Random Glucose Lactic Acid Calcium Prot Corrected Calcium Phosphorus Magnesium Total Bilirubin AST ALT Alkaline Phosphatase Total Creatine Kinase Troponin I Total Protein Albumin Lipase Beta-Hydroxybutyric Acd Urine Color Urine Clarity Urine pH Ur Specific [place] Urine Protein Urine Glucose (UA) Urine Ketones Urine Occult Blood Urine Nitrate Urine Bilirubin Urine Urobilinogen Ur Leukocyte Esterase Urine RBC Urine WBC Urine Yeast Micro UA Comment Ur Microscopic Review Urine Culture Comments Nasal Screen MRSA (PCR) Blood Type Antibody Screen MTS Gel Crossmatch Bld Prod Order Comment 12/17/17 12/17/17 12/17/17 02:23 03:44 04:16 WBC 15.1 H RBC 2.63 L Hgb 7.2 L Hct 21.9 L MCV 83.1 MCH 27.4 MCHC 33.0 RDW 14.9 Plt Count 165 D MPV 8.0 Prelim Diff (Auto) Slide review pending Neut % (Auto) 80.8 H Lymph % (Auto) 16.8 [place] % (Auto) 1.7 Eos % (Auto) 0.3 Baso % (Auto) 0.4 Neut # (Auto) 12.2 H Lymph # (Auto) 2.5 [place] # (Auto) 0.2 Eos # (Auto) 0.0 Baso # (Auto) 0.1 WBC Differential Manual diff final Seg Neuts % (Manual) 77 H Band Neuts % (Manual) 5 Lymphocytes % (Manual) 15 Monocytes % (Manual) Metamyelocytes % (Man) 3 H Abs Neuts (Manual) 12.8 H Differential Comment . Toxic Granulation 1+ H Toxic Vacuolation Present H Dohle Bodies Present H Platelet Estimate Normal Platelet Morphology Normal RBC Morphology Normal PT INR Puncture Site Patient Temperature O2 Saturation ABG pH ABG pCO2 ABG pO2 ABG HCO3 ABG O2 Content ABG Base Excess ABG Methemoglobin Aroldo Test VBG pH VBG pCO2 VBG pO2 VBG HCO3 VBG O2 Saturation VBG O2 Content VBG Base Excess VBG Carboxyhemoglobin VBG Methemoglobin Hemoglobin Carboxyhemoglobin O2 Delivery Device Vent Setting Inspired O2 Critical Value Sodium Potassium Chloride Carbon Dioxide Anion Gap BUN Creatinine Estimated GFR POC Glucose 155 H 122 H Random Glucose Lactic Acid Calcium Prot Corrected Calcium Phosphorus Magnesium Total Bilirubin AST ALT Alkaline Phosphatase Total Creatine Kinase Troponin I Total Protein Albumin Lipase Beta-Hydroxybutyric Acd Urine Color Urine Clarity Urine pH Ur Specific [place] Urine Protein Urine Glucose (UA) Urine Ketones Urine Occult Blood Urine Nitrate Urine Bilirubin Urine Urobilinogen Ur Leukocyte Esterase Urine RBC Urine WBC Urine Yeast Micro UA Comment Ur Microscopic Review Urine Culture Comments Nasal Screen MRSA (PCR) Blood Type Antibody Screen MTS Gel Crossmatch Bld Prod Order Comment 12/17/17 12/17/17 12/17/17 04:16 05:17 06:22 WBC RBC Hgb Hct MCV MCH MCHC RDW Plt Count MPV Prelim Diff (Auto) Neut % (Auto) Lymph % (Auto) [place] % (Auto) Eos % (Auto) Baso % (Auto) Neut # (Auto) Lymph # (Auto) [place] # (Auto) Eos # (Auto) Baso # (Auto) WBC Differential Seg Neuts % (Manual) Band Neuts % (Manual) Lymphocytes % (Manual) Monocytes % (Manual) Metamyelocytes % (Man) Abs Neuts (Manual) Differential Comment Toxic Granulation Toxic Vacuolation Dohle Bodies Platelet Estimate Platelet Morphology RBC Morphology PT INR Puncture Site Patient Temperature O2 Saturation ABG pH ABG pCO2 ABG pO2 ABG HCO3 ABG O2 Content ABG Base Excess ABG Methemoglobin Aroldo Test VBG pH VBG pCO2 VBG pO2 VBG HCO3 VBG O2 Saturation VBG O2 Content VBG Base Excess VBG Carboxyhemoglobin VBG Methemoglobin Hemoglobin Carboxyhemoglobin O2 Delivery Device Vent Setting Inspired O2 Critical Value Sodium 140 Potassium 3.6 Chloride 110 H Carbon Dioxide 21.5 Anion Gap 9 BUN 26 H Creatinine 1.02 H Estimated GFR 57 L POC Glucose 110 Random Glucose 112 H Lactic Acid Calcium 6.4 L* Prot Corrected Calcium 7.4 L* Phosphorus Magnesium Total Bilirubin 0.6 AST 9 L ALT 8 L Alkaline Phosphatase 260 H Total Creatine Kinase Troponin I Total Protein 5.1 L Albumin 0.8 L Lipase Beta-Hydroxybutyric Acd Urine Color Urine Clarity Urine pH Ur Specific [place] Urine Protein Urine Glucose (UA) Urine Ketones Urine Occult Blood Urine Nitrate Urine Bilirubin Urine Urobilinogen Ur Leukocyte Esterase Urine RBC Urine WBC Urine Yeast Micro UA Comment Ur Microscopic Review Urine Culture Comments Nasal Screen MRSA (PCR) Blood Type Antibody Screen MTS Gel Crossmatch See Detail Bld Prod Order Comment Cancelled 12/17/17 12/17/17 08:21 08:22 WBC RBC Hgb Hct MCV MCH MCHC RDW Plt Count MPV Prelim Diff (Auto) Neut % (Auto) Lymph % (Auto) [place] % (Auto) Eos % (Auto) Baso % (Auto) Neut # (Auto) Lymph # (Auto) [place] # (Auto) Eos # (Auto) Baso # (Auto) WBC Differential Seg Neuts % (Manual) Band Neuts % (Manual) Lymphocytes % (Manual) Monocytes % (Manual) Metamyelocytes % (Man) Abs Neuts (Manual) Differential Comment Toxic Granulation Toxic Vacuolation Dohle Bodies Platelet Estimate Platelet Morphology RBC Morphology PT INR Puncture Site Art line Patient Temperature 98.6 O2 Saturation 96 ABG pH 7.40 ABG pCO2 35 L ABG pO2 149 H ABG HCO3 21 L ABG O2 Content 12.5 ABG Base Excess -3.3 L ABG Methemoglobin 1.5 Aroldo Test VBG pH VBG pCO2 VBG pO2 VBG HCO3 VBG O2 Saturation VBG O2 Content VBG Base Excess VBG Carboxyhemoglobin VBG Methemoglobin Hemoglobin 9.1 L Carboxyhemoglobin 1.6 O2 Delivery Device Ventilator Vent Setting Prvc/ac Inspired O2 60 Critical Value No Sodium Potassium Chloride Carbon Dioxide Anion Gap BUN Creatinine Estimated GFR POC Glucose 100 Random Glucose Lactic Acid Calcium Prot Corrected Calcium Phosphorus Magnesium Total Bilirubin AST ALT Alkaline Phosphatase Total Creatine Kinase Troponin I Total Protein Albumin Lipase Beta-Hydroxybutyric Acd Urine Color Urine Clarity Urine pH Ur Specific [place] Urine Protein Urine Glucose (UA) Urine Ketones Urine Occult Blood Urine Nitrate Urine Bilirubin Urine Urobilinogen Ur Leukocyte Esterase Urine RBC Urine WBC Urine Yeast Micro UA Comment Ur Microscopic Review Urine Culture Comments Nasal Screen MRSA (PCR) Blood Type Antibody Screen MTS Gel Crossmatch Bld Prod Order Comment Result Diagrams: 12/20/17 04:30 12/20/17 04:30 Microbiology: Microbiology 12/15/17 06:30 Aerobic Blood Culture - Preliminary Blood - Peripheral No growth in 1 day Anaerobic Blood Culture - Preliminary No growth in 1 day 12/15/17 06:45 Aerobic Blood Culture - Preliminary Blood - Peripheral No growth in 1 day Anaerobic Blood Culture - Preliminary No growth in 1 day Imaging: Femur X-Ray 12/15/17 07:05 CONCLUSION: No fracture is identified. There is extensive soft tissue air in the right gluteal region and extending into the proximal and mid posterior thigh. The soft tissue air suggests an open wound. Pelvis X-Ray 12/15/17 07:05 CONCLUSION: No fracture is identified. However, there is extensive soft tissue air in the left gluteal region and left proximal thigh. Pelvis CT 12/15/17 07:52 CONCLUSION: 1. No fracture is identified. 2. Extensive subcutaneous and soft tissue gas bilaterally, left greater than right. It is most severe in the left gluteal region and extends into the proximal posterior thigh. The soft tissue air dissects through the gluteal musculature. There is adjacent subcutaneous edema. Chest X-Ray 12/17/17 04:00 CONCLUSION: No significant change. Left greater than right parenchymal opacities persist. Procedures: 12/15/2017: Endotracheal intubation 12/15/2017: Left subclavian central line placement 12/15/2017: NGT placement Patient/Family Conference Present at Family Conference: Spoke to patient via telephone Family Conference Location: Telephone Issues Discussed: * Palliative care role, purpose, approach * Additional medical, psychosocial, and spiritual history * Patients general health, functional status, and cognitive changes in the months leading up to the current hospitalization * Patient/family understanding of the current medical problems * Patient/family understanding of prognosis * Patients goals of care as best understood from advance directives and/or conversations and/or values * Current medical treatment options and benefits/burdens of those options * Likely scenarios comparing ongoing aggressive care with a transition to comfort measures only * Questions answered to the best of my ability * Palliative care contact information provided Assessment and Plan - Disease Oriented Problem List (1) Septic shock with acute organ dysfunction due to anaerobic bacteria (2) Acute respiratory failure (3) Type 2 diabetes mellitus with hyperosmolar nonketotic hyperglycemia (4) Necrotizing fasciitis (5) MARIO (acute kidney injury) (6) Lactic acidosis - Symptom Scale (1) Pain 0-10 Scale: Unable to quantify (2) Debility 0-10 Scale: Unable to quantify Pertinent Non-Medical Issues: Psychosocial: Spiritual: Legal: Per [employer] statutes, in the absence of written advanced directives health care proxy decision making will fall to the patient's , Tyr[place]. Ethical issues impacting care: No known ethical issues impacting care at this time. Important Contacts: Tyrone Russell, : [phone] Prognosis: Patient is critically ill and in septic shock with necrotizing fasciitis secondary to a chronic sacral decubitus. Upon arrival to the ED, the patient was hyperglycemic with a blood glucose of 610, severely dehydrated and in profound shock. She is intubated on mechanical ventilation requiring pressor support status post wide excision of the involved soft tissue. Patient will require further debridements in the future. She remains hemodynamically unstable and critically ill. Code Status: Full Code Plan: * FULL CODE * Patient lacks insight and judgment related to her medical conditions. It is unclear if she will regain capacity for medical decision-making. Per [place] statutes, in the absence of written advanced directives healthcare proxy decision making falls to the patient's , Tyrone. * Discussed patient with Dr. Henry and RNs (Maria R and Aleja). * Patient's verbalizing aggressive goals stating, "I think she would want everything done to live. Besides, it is too early to know. She was like this the last time she was in the hospital too." Has been requests we do "everything"we can to keep her alive. * Palliative care contact information was provided to the patient's . * Patient's will be in to see the patient later today 12/17/2017. He will sign consents for the patient to go back to the OR for additional procedures at that time. * Symptom management: Pain: Multifactoral. Patient has a long history of chronic conditions. She is currently sedated with fentanyl and propofol. Possible contributing factors include severe peripheral arterial disease, recent BKA, peripheral neuropathy, sepsis, necrotizing fasciitis, invasive lines, immobility. No recommendations at this time. We will continue to monitor. Debility: Patient with uncontrolled diabetes with severe peripheral arterial disease and smoking. Patient has had several hospitalizations/ED visits in the past year. 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 Patient went to live with her family in [place] after her last hospitalization but returned to [place] in the past few weeks. Patient's states she is alone much of the time because he works so much. He states she has a history of non-compliance with her medical regimen and is no longer able to care for herself at home. * Palliative care will continue to follow this patient throughout her hospitalization to establish trust, assist with symptom management and clarification of medical treatment goals. Appreciation Thank you for the opportunity to participate in the care of Abby Russell. Attestation Attestation: To help prompt me to consider important information that might be impacting today's encounter and assessment, information from prior notes written by myself or my colleagues may have been "brought forward" into today's note. My signature on this note, however, is an attestation that I personally performed the exam, history, and/or decision-making noted today, and, unless otherwise indicated, the interactions with patient, family, and staff as well as the review of records all occurred today. I also attest that the listed assessment and stated plan reflect my best clinical judgment today based on the combination of historical information, prior notes, and today's exam/ interactions. When time spent is documented, it refers only to time spent today by the signer, or if indicated, combined time spent today by collaborating physician/nurse practitioner.
--- NOTE | 2017-12-17 11:45 | P.PNID ---
Subjective Remarks: Patient is on the ventilator. Unresponsive. Remains on Levophed 3 mcg. Also on vasopressin. Afebrile. Review of the labs: No culture available from the surgical procedure which was performed. It appears that no culture was sent when the surgical procedure was performed. Patient has wound VAC in place over the surgical wound. Blood culture has no growth. Large area abraded debrided at the buttock,back and left upper posterior thigh. This is a 52-year-old white female who was brought to the emergency department after she fell at home. The patient was noted to have profound weakness. She was evaluated in the emergency department and at that time had normal temperature and white blood cell count was also normal. She underwent CT scan of the abdomen and pelvis that showed extensive subcutaneous and soft tissue gas bilaterally with the left greater than right, most severe in the left gluteal region and extending into the proximal posterior thigh soft tissue and air-fluid dissecting through the gluteal musculature. The patient has a history of diabetes mellitus. Antibiotics: Clindamycin. Cefepime. Allergies/Adverse Reactions: Allergies No Known Allergies Allergy (Verified 12/15/17 07:54) Objective Vital Signs 12/16/17 11:45 12/16/17 12:00 12/16/17 12:15 Temperature Pulse Rate 89 86 84 Respiratory Rate 8 L 14 18 Blood Pressure Pulse Oximetry 100 100 100 12/16/17 12:30 12/16/17 12:45 12/16/17 13:00 Temperature Pulse Rate 82 82 81 Respiratory Rate 18 18 18 Blood Pressure Pulse Oximetry 100 100 100 12/16/17 13:13 12/16/17 13:15 12/16/17 13:16 Temperature Pulse Rate 82 82 Respiratory Rate 18 18 18 Blood Pressure 120/64 Pulse Oximetry 100 100 12/16/17 13:30 12/16/17 13:45 12/16/17 14:00 Temperature Pulse Rate 82 83 91 H Respiratory Rate 18 18 18 Blood Pressure Pulse Oximetry 100 100 100 12/16/17 14:15 12/16/17 14:30 12/16/17 14:45 Temperature Pulse Rate 90 93 H 96 H Respiratory Rate 19 18 19 Blood Pressure Pulse Oximetry 100 100 100 12/16/17 15:00 12/16/17 15:15 12/16/17 15:16 Temperature Pulse Rate 100 H 103 H 104 H Respiratory Rate 18 18 19 Blood Pressure 96/54 L Pulse Oximetry 100 100 100 12/16/17 15:30 12/16/17 15:45 12/16/17 16:00 Temperature Pulse Rate 106 H 105 H 106 H Respiratory Rate 18 19 20 Blood Pressure Pulse Oximetry 100 100 100 12/16/17 16:15 12/16/17 16:30 12/16/17 16:45 Temperature Pulse Rate 107 H 107 H 107 H Respiratory Rate 21 19 19 Blood Pressure Pulse Oximetry 100 100 100 12/16/17 17:00 12/16/17 17:15 12/16/17 17:16 Temperature 98 F Pulse Rate 109 H 108 H 108 H Respiratory Rate 19 19 20 Blood Pressure 93/51 L Pulse Oximetry 100 100 100 12/16/17 17:27 12/16/17 17:30 12/16/17 17:45 Temperature Pulse Rate 111 H 115 H Respiratory Rate 19 20 19 Blood Pressure Pulse Oximetry 100 100 100 12/16/17 18:00 12/16/17 18:15 12/16/17 18:30 Temperature Pulse Rate 118 H 119 H 121 H Respiratory Rate 21 22 25 H Blood Pressure Pulse Oximetry 100 100 100 12/16/17 18:45 12/16/17 19:00 12/16/17 19:15 Temperature Pulse Rate 120 H 118 H 118 H Respiratory Rate 22 17 21 Blood Pressure Pulse Oximetry 100 100 100 12/16/17 19:16 12/16/17 19:30 12/16/17 19:45 Temperature Pulse Rate 118 H 120 H 121 H Respiratory Rate 18 17 21 Blood Pressure 131/64 Pulse Oximetry 100 100 100 12/16/17 20:00 12/16/17 20:15 12/16/17 20:30 Temperature 99.2 F Pulse Rate 125 H 124 H 124 H Respiratory Rate 18 17 18 Blood Pressure Pulse Oximetry 100 100 100 12/16/17 20:45 12/16/17 21:00 12/16/17 21:15 Temperature Pulse Rate 123 H 120 H 118 H Respiratory Rate 18 18 19 Blood Pressure Pulse Oximetry 100 100 100 12/16/17 21:16 12/16/17 21:30 12/16/17 21:45 Temperature Pulse Rate 116 H 117 H 118 H Respiratory Rate 19 19 20 Blood Pressure 116/56 L Pulse Oximetry 100 100 100 12/16/17 22:00 12/16/17 22:15 12/16/17 22:24 Temperature Pulse Rate 116 H 117 H 117 H Respiratory Rate 10 L 9 L 19 Blood Pressure 103/55 L Pulse Oximetry 100 99 100 12/16/17 22:30 12/16/17 22:45 12/16/17 22:51 Temperature Pulse Rate 116 H 114 H 117 H Respiratory Rate 8 L 18 18 Blood Pressure 106/58 L Pulse Oximetry 100 99 97 12/16/17 23:00 12/16/17 23:15 12/16/17 23:30 Temperature Pulse Rate 118 H 120 H 117 H Respiratory Rate 21 29 H 30 H Blood Pressure 118/56 L 98/56 L 103/57 L Pulse Oximetry 96 95 95 12/16/17 23:45 12/16/17 23:55 12/17/17 00:00 Temperature 99 F 99 F Pulse Rate 126 H 126 H 125 H Respiratory Rate 35 H 18 19 Blood Pressure 105/55 L 102/57 L 106/62 Pulse Oximetry 94 L 94 L 95 12/17/17 00:15 12/17/17 00:30 12/17/17 00:33 Temperature Pulse Rate 123 H 122 H Respiratory Rate 18 20 18 Blood Pressure 102/58 L 131/63 Pulse Oximetry 87 L 83 L 94 L 12/17/17 00:45 12/17/17 01:00 12/17/17 01:15 Temperature Pulse Rate 117 H 114 H 110 H Respiratory Rate 22 18 18 Blood Pressure 124/63 124/60 109/55 L Pulse Oximetry 94 L 93 L 93 L 12/17/17 01:30 12/17/17 01:45 12/17/17 02:00 Temperature Pulse Rate 120 H 121 H 123 H Respiratory Rate 15 18 18 Blood Pressure 126/59 L 132/61 124/57 L Pulse Oximetry 92 L 91 L 91 L 12/17/17 02:15 12/17/17 02:30 12/17/17 02:45 Temperature Pulse Rate 118 H 124 H 123 H Respiratory Rate 17 19 18 Blood Pressure 151/68 H 125/56 L 109/57 L Pulse Oximetry 91 L 91 L 91 L 12/17/17 03:00 12/17/17 03:15 12/17/17 03:30 Temperature Pulse Rate 118 H 116 H 110 H Respiratory Rate 18 18 18 Blood Pressure 107/57 L 104/56 L 104/58 L Pulse Oximetry 92 L 92 L 93 L 12/17/17 03:45 12/17/17 04:00 12/17/17 04:04 Temperature 99.4 F Pulse Rate 108 H 103 H Respiratory Rate 18 18 18 Blood Pressure 123/57 L 127/62 Pulse Oximetry 92 L 93 L 92 L 12/17/17 04:15 12/17/17 04:30 12/17/17 04:45 Temperature Pulse Rate 107 H 124 H 113 H Respiratory Rate 18 23 18 Blood Pressure 147/68 H 138/67 135/64 Pulse Oximetry 92 L 91 L 92 L 12/17/17 05:00 12/17/17 05:15 12/17/17 05:39 Temperature 100.3 F H Pulse Rate 106 H 102 H 104 H Respiratory Rate 18 18 18 Blood Pressure 125/60 133/65 120/67 Pulse Oximetry 93 L 93 L 91 L 12/17/17 05:50 12/17/17 08:00 12/17/17 08:10 Temperature 99.4 F 98.5 F Pulse Rate 106 H 95 H Respiratory Rate 18 18 18 Blood Pressure 168/67 H Pulse Oximetry 89 L 97 97 12/17/17 08:35 12/17/17 09:00 Temperature Pulse Rate 94 H Respiratory Rate Blood Pressure Pulse Oximetry 96 Intake & Output 12/16/17 12/17/17 12/17/17 18:59 06:59 18:59 Intake Total 3500 / 3500 4240 / 4240 350 / 350 Output Total 1100 / 1100 1525 / 1525 Balance 2400 / 2400 2715 / 2715 350 / 350 Weight 78.3 kg Intake: IV 2500 / 2500 3840 / 3840 350 / 350 D5W/LR Inj 1,000 ML @ 150 mls/ 1999 / 2000 2000 / 1999 hr IV.CONT .Q6H40M [facility] Rx#: [id number] Primacor Inj 20 MG In NS Inj 80 100 / 100 ML @ 0.25 MCG/KG/MIN 5.38 mls/ hr IV.CONT .[id number] [facility] Rx#: [id number] Diprivan 1000 mg/100 ml Inj 1, 100 / 100 100 / 100 000 mg In 100 ml @ 5 MCG/KG/MIN 1.837 mls/hr IV.CONT TITRATE PRN Rx#:[id number] Maxipime Inj 2,000 MG In NS Inj 100 / 100 100 / 100 100 ML @ 200 mls/hr IV.SIG Q12H [facility] Rx#:[id number] Cleocin 900 mg/NS Premix 900 mg 50 / 50 100 / 100 In 50 ml @ 100 mls/hr IV.SIG Q8H [facility] Rx#:[id number] LR 1000 mL Inj 1,000 ML @ Wide 1000 / 1000 Open IV.SIG B[facility]US ONE Rx#: [id number] Levophed Inj 4 MG In NS Inj 246 250 / 250 250 / 250 ML @ 2 MCG/MIN 7.5 mls/hr IV. SIG TITRATE PRN Rx#:[id number] NS Inj 250 ML @ 15 mls/hr IV. 40 / 40 SIG ONCE [facility] Rx#:[id number] fentaNYL 10 mcg/mL Premix Drip 250 / 250 2,500 mcg In 250 ml @ 50 MCG/HR 5 mls/hr IV.SIG TITRATE PRN Rx #:[id number] Other 1000 / 1000 Intake (Blood Product) Amt 400 / 400 Rbc As-3 Leukoreduced Unit 400 / 400 [id number] Output: Urine 1000 / 1000 Urine Amount (Catheter) 400 / 400 1 400 / 400 Gastric Drainage 400 / 400 175 / 175 Nasogastric Tube 400 / 400 175 / 175 Wound Vac Amount 300 / 300 350 / 350 Posterior Sacrum 300 / 300 350 / 350 Other: Mode Setting Posterior Sacrum Continuous Continuous Continuous Other Intake Source Saline Solution 12/15/17 06:30 Blood - Peripheral Aerobic Blood Culture - Preliminary No growth in 2 days 12/15/17 06:30 Blood - Peripheral Anaerobic Blood Culture - Preliminary No growth in 2 days 12/15/17 06:45 Blood - Peripheral Aerobic Blood Culture - Preliminary No growth in 2 days 12/15/17 06:45 Blood - Peripheral Anaerobic Blood Culture - Preliminary No growth in 2 days Lab - Hematology Results 12/15/17 12/16/17 12/17/17 22:04 04:10 04:16 WBC 12.6 H 15.1 H RBC 3.23 L 2.63 L Hgb 7.2 L 9.0 L 7.2 L Hct 26.7 L 21.9 L MCV 82.6 83.1 MCH 28.0 27.4 MCHC 33.9 33.0 RDW 14.5 14.9 Plt Count 244 165 D MPV 8.4 8.0 Prelim Diff (Auto) Slide review pending Slide review pending Neut % (Auto) 81.7 H 80.8 H Lymph % (Auto) 16.7 16.8 [place] % (Auto) 0.8 1.7 Eos % (Auto) 0.4 0.3 Baso % (Auto) 0.4 0.4 Neut # (Auto) 10.3 H 12.2 H Lymph # (Auto) 2.1 2.5 [place] # (Auto) 0.1 0.2 Eos # (Auto) 0.0 0.0 Baso # (Auto) 0.1 0.1 WBC Differential Manual diff final Manual diff final Seg Neuts % (Manual) 60 77 H Band Neuts % (Manual) 19 H 5 Lymphocytes % (Manual) 18 15 Monocytes % (Manual) 3 Metamyelocytes % (Man) 3 H Abs Neuts (Manual) 10.0 H 12.8 H Differential Comment . . Toxic Granulation 1+ H 1+ H Toxic Vacuolation Present H Present H Dohle Bodies Present H Platelet Estimate Normal Normal Platelet Morphology Normal Normal RBC Morphology Normal Lab - Chemistry Results 12/15/17 12/15/17 12/15/17 12:05 12:57 13:30 Sodium 135 L Potassium 2.5 L* D Chloride 104 D Carbon Dioxide 21.2 Anion Gap 10 BUN 34 H Creatinine 1.08 H Estimated GFR 53 L POC Glucose 321 H 265 H Random Glucose 177 H D Lactic Acid Calcium 7.2 L* Prot Corrected Calcium 7.5 L Phosphorus 3.1 Magnesium 1.7 Total Bilirubin AST ALT Alkaline Phosphatase Total Creatine Kinase 45 Total Protein 6.5 Albumin 12/15/17 12/15/17 12/15/17 13:30 14:16 17:00 Sodium 138 Potassium 3.5 D Chloride 108 H Carbon Dioxide 22.2 Anion Gap 8 BUN 32 H Creatinine 0.82 Estimated GFR 73 L POC Glucose 184 H Random Glucose 58 L D Lactic Acid 3.3 H Calcium 6.6 L* Prot Corrected Calcium 7.4 L* Phosphorus Magnesium Total Bilirubin AST ALT Alkaline Phosphatase Total Creatine Kinase Total Protein 5.5 L D Albumin 12/15/17 12/15/17 12/15/17 20:14 20:16 20:37 Sodium Potassium Chloride Carbon Dioxide Anion Gap BUN Creatinine Estimated GFR POC Glucose 31 L* 32 L* 87 Random Glucose Lactic Acid Calcium Prot Corrected Calcium Phosphorus Magnesium Total Bilirubin AST ALT Alkaline Phosphatase Total Creatine Kinase Total Protein Albumin 12/15/17 12/16/17 12/16/17 22:04 01:08 01:32 Sodium 140 Potassium 3.7 Chloride 107 Carbon Dioxide 23.9 Anion Gap 9 BUN 33 H Creatinine 0.82 Estimated GFR 73 L POC Glucose 42 L* 59 L Random Glucose 72 L Lactic Acid Calcium 6.6 L* Prot Corrected Calcium 7.3 L* Phosphorus Magnesium 1.8 Total Bilirubin AST ALT Alkaline Phosphatase Total Creatine Kinase Total Protein 5.6 L Albumin 12/16/17 12/16/17 12/16/17 01:57 01:58 02:00 Sodium Potassium Chloride Carbon Dioxide Anion Gap BUN Creatinine Estimated GFR POC Glucose 57 L 261 H 293 H Random Glucose Lactic Acid Calcium Prot Corrected Calcium Phosphorus Magnesium Total Bilirubin AST ALT Alkaline Phosphatase Total Creatine Kinase Total Protein Albumin 12/16/17 12/16/17 12/16/17 02:05 02:57 04:10 Sodium 137 Potassium 4.0 Chloride 106 Carbon Dioxide 22.2 Anion Gap 9 BUN 30 H Creatinine 0.92 Estimated GFR 64 L POC Glucose 275 H Random Glucose 284 H D 238 H Lactic Acid Calcium 7.0 L* Prot Corrected Calcium 7.8 L Phosphorus Magnesium Total Bilirubin 0.8 AST 11 L ALT 10 Alkaline Phosphatase 337 H Total Creatine Kinase Total Protein 5.5 L Albumin 1.0 L 12/16/17 12/16/17 12/16/17 04:10 04:10 05:08 Sodium Potassium Chloride Carbon Dioxide Anion Gap BUN Creatinine Estimated GFR POC Glucose 243 H 243 H Random Glucose Lactic Acid 2.0 Calcium Prot Corrected Calcium Phosphorus Magnesium Total Bilirubin AST ALT Alkaline Phosphatase Total Creatine Kinase Total Protein Albumin 12/16/17 12/16/17 12/16/17 06:10 07:06 08:29 Sodium Potassium Chloride Carbon Dioxide Anion Gap BUN Creatinine Estimated GFR POC Glucose 262 H 270 H 271 H Random Glucose Lactic Acid Calcium Prot Corrected Calcium Phosphorus Magnesium Total Bilirubin AST ALT Alkaline Phosphatase Total Creatine Kinase Total Protein Albumin 12/16/17 12/16/17 12/16/17 12:02 17:36 17:38 Sodium Potassium Chloride Carbon Dioxide Anion Gap BUN Creatinine Estimated GFR POC Glucose 200 H 42 L* 40 L* Random Glucose Lactic Acid Calcium Prot Corrected Calcium Phosphorus Magnesium Total Bilirubin AST ALT Alkaline Phosphatase Total Creatine Kinase Total Protein Albumin 10/28/18 10/28/18 10/28/18 17:47 18:00 18:28 Sodium Potassium Chloride Carbon Dioxide Anion Gap BUN Creatinine Estimated GFR POC Glucose 40 L* 135 H Random Glucose 34 L* D Lactic Acid Calcium Prot Corrected Calcium Phosphorus Magnesium Total Bilirubin AST ALT Alkaline Phosphatase Total Creatine Kinase Total Protein Albumin 12/16/17 12/16/17 12/16/17 21:07 21:38 23:24 Sodium Potassium Chloride Carbon Dioxide Anion Gap BUN Creatinine Estimated GFR POC Glucose 44 L* 139 H 89 Random Glucose Lactic Acid Calcium Prot Corrected Calcium Phosphorus Magnesium Total Bilirubin AST ALT Alkaline Phosphatase Total Creatine Kinase Total Protein Albumin 12/16/17 12/17/17 12/17/17 23:44 01:56 02:23 Sodium Potassium 3.7 Chloride Carbon Dioxide Anion Gap BUN Creatinine Estimated GFR POC Glucose 66 L 155 H Random Glucose Lactic Acid Calcium Prot Corrected Calcium Phosphorus Magnesium Total Bilirubin AST ALT Alkaline Phosphatase Total Creatine Kinase Total Protein Albumin 12/17/17 12/17/17 12/17/17 03:44 04:16 06:22 Sodium 140 Potassium 3.6 Chloride 110 H Carbon Dioxide 21.5 Anion Gap 9 BUN 26 H Creatinine 1.02 H Estimated GFR 57 L POC Glucose 122 H 110 Random Glucose 112 H Lactic Acid Calcium 6.4 L* Prot Corrected Calcium 7.4 L* Phosphorus Magnesium Total Bilirubin 0.6 AST 9 L ALT 8 L Alkaline Phosphatase 260 H Total Creatine Kinase Total Protein 5.1 L Albumin 0.8 L 12/17/17 12/17/17 08:21 10:43 Sodium Potassium Chloride Carbon Dioxide Anion Gap BUN Creatinine Estimated GFR POC Glucose 100 120 H Random Glucose Lactic Acid Calcium Prot Corrected Calcium Phosphorus Magnesium Total Bilirubin AST ALT Alkaline Phosphatase Total Creatine Kinase Total Protein Albumin Imaging: ITS Impressions Femur X-Ray 12/15/17 07:05 CONCLUSION: No fracture is identified. There is extensive soft tissue air in the right gluteal region and extending into the proximal and mid posterior thigh. The soft tissue air suggests an open wound. Pelvis X-Ray 12/15/17 07:05 CONCLUSION: No fracture is identified. However, there is extensive soft tissue air in the left gluteal region and left proximal thigh. Pelvis CT 12/15/17 07:52 CONCLUSION: 1. No fracture is identified. 2. Extensive subcutaneous and soft tissue gas bilaterally, left greater than right. It is most severe in the left gluteal region and extends into the proximal posterior thigh. The soft tissue air dissects through the gluteal musculature. There is adjacent subcutaneous edema. Chest X-Ray 12/17/17 04:00 CONCLUSION: No significant change. Left greater than right parenchymal opacities persist. Physical Exam: PHYSICAL EXAMINATION: GENERAL: Unresponsive. Sedated. HEENT: Unable to assess fully. The sclerae has edema. Oropharynx intubated. NECK: Supple. No adenopathy or swelling. LUNGS: Bibasilar rhonchi.. HEART: Regular S1 and S2. A 1-2/6 systolic murmur at the left sternal border. ABDOMEN: Bowel sounds present, soft, no tenderness appreciated. BACK: Surgical wound post debridement across the lower back, buttock and left thigh. Vacuum device in place. Positive drainage. EXTREMITIES: No clubbing, no cyanosis or edema. Left foot is cold to touch. Dry gangrenous top of toes 1-4. SKIN: No diffuse rash. NEUROLOGIC: Unable to assess. PSYCHIATRIC: Unable to assess. Assessment and Plan - Plan IMPRESSION: 1. Necrotizing fasciitis of the back buttock and left thigh. 2. Septic shock. 3. Acute respiratory failure. 4. Chronic kidney disease. RECOMMENDATIONS: 1. Continue vancomycin. Last dose was given on 12/16. I will reorder vancomycin. 2. Continue clindamycin. 3. Continue cefepime for gram-negative coverage. 4. Monitor cultures. Upon further review it appears that no culture was sent from surgery. 5. Send culture of the wound. Will be very important to have culture information to determine appropriate treatment in this patient. Discussed with RN.
[2017-12-17] MEDS ORDERED: Vancomycin Consult Pharmacy 1 EACH OTHER SCH (12:00)
--- NOTE | 2017-12-17 12:02 | P.PNWCN ---
Wound Care Nurse Consult Description: Consult for Wound Management of Left Toes and Right Knee per Corina García/Dr Vazquez Communicated with: VISHAL Heck who was too busy helping another nurse (@[id number]) and could not assist group underwriter in assessing wounds at that time. Will attempt at a later time.
--- NOTE | 2017-12-17 13:23 | P.PNCC ---
Subjective Subjective Remarks/Hospital Course: This 52-year-old woman with long-standing uncontrolled diabetes mellitus and severe peripheral arterial disease related to a long-term heavy smoking history was found down at her home and initial blood glucose was 610. Her lower back and buttocks was exquisitely tender and a mid line stage IV sacral decubitus was oozing purulent material and inflamed and the surrounding soft tissue. White count was not elevated but 90% neutrophils. Temperature 97 degrees. Moderately encephalopathic though conversant. X-rays revealed no fractures in the pelvis but CAT scan demonstrated extensive subcutaneous air emanating in both directions left and right from the mid sacral region. This is clearly necrotizing fasciitis or some other gas-forming infection and the woman is critically ill. She received vancomycin, Zosyn, and clindamycin antibiotic therapy as quickly as possible and was transferred to the ICU for ongoing resuscitation. Because of worsening hemodynamic stability she required intubation and mechanical ventilation followed by central line placement on arrival to the ICU. Insulin drip infusion was started in the emergency department and glucose had declined into the low 400s. She was not in ketoacidosis but lactic acid was elevated at 3.1. General surgery and orthopedic surgery were consulted for recommendations and it was felt that this woman was too unstable to tolerate an operative procedure immediately. We continue her ongoing resuscitation and trial in the ICU at this stage. 12/16: Following aggressive resuscitation yesterday for the treatment of severe hyperglycemia, septic shock, respiratory failure, metabolic acidosis, acute kidney injury, the patient went to the operating room with an extensive wide debridement bilateral gluteal and left thigh soft tissue and muscle. Primary antibiotic coverage at this point is vancomycin, cefepime, clindamycin. The patient started to make urine late yesterday afternoon and has continued to acceptable output since. Lactic acidosis is 2.0 this morning but metabolic acidosis persists despite bicarb drip. She remains on vasopressor support and hemodynamically unstable. 12/17: s/p debridement of large nec fasc wound. remains in shock today. also very hypoglycemic requiring multiple D50 amps overnight. Objective Vital Signs / I&O: Vital Signs 12/16/17 13:30 12/16/17 13:45 12/16/17 14:00 Temperature Pulse Rate 82 83 91 H Respiratory Rate 18 18 18 Blood Pressure Pulse Oximetry 100 100 100 12/16/17 14:15 12/16/17 14:30 12/16/17 14:45 Temperature Pulse Rate 90 93 H 96 H Respiratory Rate 19 18 19 Blood Pressure Pulse Oximetry 100 100 100 12/16/17 15:00 12/16/17 15:15 12/16/17 15:16 Temperature Pulse Rate 100 H 103 H 104 H Respiratory Rate 18 18 19 Blood Pressure 96/54 L Pulse Oximetry 100 100 100 12/16/17 15:30 12/16/17 15:45 12/16/17 16:00 Temperature Pulse Rate 106 H 105 H 106 H Respiratory Rate 18 19 20 Blood Pressure Pulse Oximetry 100 100 100 12/16/17 16:15 12/16/17 16:30 12/16/17 16:45 Temperature Pulse Rate 107 H 107 H 107 H Respiratory Rate 21 19 19 Blood Pressure Pulse Oximetry 100 100 100 12/16/17 17:00 12/16/17 17:15 12/16/17 17:16 Temperature 36.6 C Pulse Rate 109 H 108 H 108 H Respiratory Rate 19 19 20 Blood Pressure 93/51 L Pulse Oximetry 100 100 100 12/16/17 17:27 12/16/17 17:30 12/16/17 17:45 Temperature Pulse Rate 111 H 115 H Respiratory Rate 19 20 19 Blood Pressure Pulse Oximetry 100 100 100 12/16/17 18:00 12/16/17 18:15 12/16/17 18:30 Temperature Pulse Rate 118 H 119 H 121 H Respiratory Rate 21 22 25 H Blood Pressure Pulse Oximetry 100 100 100 12/16/17 18:45 12/16/17 19:00 12/16/17 19:15 Temperature Pulse Rate 120 H 118 H 118 H Respiratory Rate 22 17 21 Blood Pressure Pulse Oximetry 100 100 100 12/16/17 19:16 12/16/17 19:30 12/16/17 19:45 Temperature Pulse Rate 118 H 120 H 121 H Respiratory Rate 18 17 21 Blood Pressure 131/64 Pulse Oximetry 100 100 100 12/16/17 20:00 12/16/17 20:15 12/16/17 20:30 Temperature 37.3 C Pulse Rate 125 H 124 H 124 H Respiratory Rate 18 17 18 Blood Pressure Pulse Oximetry 100 100 100 12/16/17 20:45 12/16/17 21:00 12/16/17 21:15 Temperature Pulse Rate 123 H 120 H 118 H Respiratory Rate 18 18 19 Blood Pressure Pulse Oximetry 100 100 100 12/16/17 21:16 12/16/17 21:30 12/16/17 21:45 Temperature Pulse Rate 116 H 117 H 118 H Respiratory Rate 19 19 20 Blood Pressure 116/56 L Pulse Oximetry 100 100 100 12/16/17 22:00 12/16/17 22:15 12/16/17 22:24 Temperature Pulse Rate 116 H 117 H 117 H Respiratory Rate 10 L 9 L 19 Blood Pressure 103/55 L Pulse Oximetry 100 99 100 12/16/17 22:30 12/16/17 22:45 12/16/17 22:51 Temperature Pulse Rate 116 H 114 H 117 H Respiratory Rate 8 L 18 18 Blood Pressure 106/58 L Pulse Oximetry 100 99 97 12/16/17 23:00 12/16/17 23:15 12/16/17 23:30 Temperature Pulse Rate 118 H 120 H 117 H Respiratory Rate 21 29 H 30 H Blood Pressure 118/56 L 98/56 L 103/57 L Pulse Oximetry 96 95 95 12/16/17 23:45 12/16/17 23:55 12/17/17 00:00 Temperature 37.2 C 37.2 C Pulse Rate 126 H 126 H 125 H Respiratory Rate 35 H 18 19 Blood Pressure 105/55 L 102/57 L 106/62 Pulse Oximetry 94 L 94 L 95 12/17/17 00:15 12/17/17 00:30 12/17/17 00:33 Temperature Pulse Rate 123 H 122 H Respiratory Rate 18 20 18 Blood Pressure 102/58 L 131/63 Pulse Oximetry 87 L 83 L 94 L 12/17/17 00:45 12/17/17 01:00 12/17/17 01:15 Temperature Pulse Rate 117 H 114 H 110 H Respiratory Rate 22 18 18 Blood Pressure 124/63 124/60 109/55 L Pulse Oximetry 94 L 93 L 93 L 12/17/17 01:30 12/17/17 01:45 12/17/17 02:00 Temperature Pulse Rate 120 H 121 H 123 H Respiratory Rate 15 18 18 Blood Pressure 126/59 L 132/61 124/57 L Pulse Oximetry 92 L 91 L 91 L 12/17/17 02:15 12/17/17 02:30 12/17/17 02:45 Temperature Pulse Rate 118 H 124 H 123 H Respiratory Rate 17 19 18 Blood Pressure 151/68 H 125/56 L 109/57 L Pulse Oximetry 91 L 91 L 91 L 12/17/17 03:00 12/17/17 03:15 12/17/17 03:30 Temperature Pulse Rate 118 H 116 H 110 H Respiratory Rate 18 18 18 Blood Pressure 107/57 L 104/56 L 104/58 L Pulse Oximetry 92 L 92 L 93 L 12/17/17 03:45 12/17/17 04:00 12/17/17 04:04 Temperature 37.4 C Pulse Rate 108 H 103 H Respiratory Rate 18 18 18 Blood Pressure 123/57 L 127/62 Pulse Oximetry 92 L 93 L 92 L 12/17/17 04:15 12/17/17 04:30 12/17/17 04:45 Temperature Pulse Rate 107 H 124 H 113 H Respiratory Rate 18 23 18 Blood Pressure 147/68 H 138/67 135/64 Pulse Oximetry 92 L 91 L 92 L 12/17/17 05:00 12/17/17 05:15 12/17/17 05:39 Temperature 37.9 C H Pulse Rate 106 H 102 H 104 H Respiratory Rate 18 18 18 Blood Pressure 125/60 133/65 120/67 Pulse Oximetry 93 L 93 L 91 L 12/17/17 05:50 12/17/17 08:00 12/17/17 08:10 Temperature 37.4 C 36.9 C Pulse Rate 106 H 95 H Respiratory Rate 18 18 18 Blood Pressure 168/67 H Pulse Oximetry 89 L 97 97 12/17/17 08:35 12/17/17 09:00 12/17/17 12:00 Temperature 36.9 C Pulse Rate 94 H 95 H Respiratory Rate 20 Blood Pressure Pulse Oximetry 96 96 12/17/17 12:25 Temperature Pulse Rate Respiratory Rate 19 Blood Pressure Pulse Oximetry 96 Intake & Output 12/16/17 12/17/17 12/17/17 18:59 06:59 18:59 Intake Total 3500 / 3500 4240 / 4240 1650 / 1650 Output Total 1100 / 1100 1525 / 1525 Balance 2400 / 2400 2715 / 2715 1650 / 1650 Weight 78.3 kg Intake: IV 2500 / 2500 3840 / 3840 1650 / 1650 D5W/LR Inj 1,000 ML @ 150 mls/ 1999 / 1999 1999 / 1999 1000 / 1000 hr IV.CONT .Q6H40M [facility] Rx#: [id number] Primacor Inj 20 MG In NS Inj 80 100 / 100 ML @ 0.25 MCG/KG/MIN 5.38 mls/ hr IV.CONT .[id number] [facility] Rx#: [id number] Diprivan 1000 mg/100 ml Inj 1, 100 / 100 100 / 100 000 mg In 100 ml @ 5 MCG/KG/MIN 1.837 mls/hr IV.CONT TITRATE PRN Rx#:[id number] Maxipime Inj 2,000 MG In NS Inj 100 / 100 100 / 100 100 ML @ 200 mls/hr IV.SIG Q12H [facility] Rx#:[id number] Cleocin 900 mg/NS Premix 900 mg 50 / 50 100 / 100 50 / 50 In 50 ml @ 100 mls/hr IV.SIG Q8H [facility] Rx#:[id number] LR 1000 mL Inj 1,000 ML @ Wide 1000 / 1000 Open IV.SIG BOLUS ONE Rx#: [id number] Levophed Inj 4 MG In NS Inj 246 250 / 250 250 / 250 250 / 250 ML @ 2 MCG/MIN 7.5 mls/hr IV. SIG TITRATE PRN Rx#:[id number] NS Inj 250 ML @ 15 mls/hr IV. 40 / 40 SIG ONCE [facility] Rx#:[id number] fentaNYL 10 mcg/mL Premix Drip 250 / 250 2,500 mcg In 250 ml @ 50 MCG/HR 5 mls/hr IV.SIG TITRATE PRN Rx #:[id number] Other 1000 / 1000 Intake (Blood Product) Amt 400 / 400 Rbc As-3 Leukoreduced Unit 400 / 400 [id number] Output: Urine 1000 / 1000 Urine Amount (Catheter) 400 / 400 1 400 / 400 Gastric Drainage 400 / 400 175 / 175 Nasogastric Tube 400 / 400 175 / 175 Wound Vac Amount 300 / 300 350 / 350 Posterior Sacrum 300 / 300 350 / 350 Other: Mode Setting Posterior Sacrum Continuous Continuous Continuous Other Intake Source Saline Solution Result Diagrams: 12/17/17 04:16 12/17/17 04:16 Objective Remarks: General: Ill-appearing middle-aged woman, intubated and sedated Head: Atraumatic, normal, edentulous Neck: Supple, orotracheal intubation Lungs: equal chest rise. prvc. fio2 65%. peep 5. Heart: tachycardic rate and regular rhythm. no JVD. Abdomen: Soft, no guarding, no peritoneal irritation. Back: Wound VAC in place over lower lumbar region there is a moderate erythema to the skin over the pelvis and buttocks. Midline sacral stage IV decubitus has been debrided. Extremities: Tepid, adequately perfused, status post below-knee amputation right side, necrotic ulceration over several toes left foot Neurological: Intubated and sedated she moves 4 limbs to stimulation. Pupils responsive. Cough, gag intact. Assessment and Plan - Problem List (1) Septic shock with acute organ dysfunction due to anaerobic bacteria Code(s): A41.4 - Sepsis due to anaerobes; R65.21 - Severe sepsis with septic shock Status: Acute (2) Acute respiratory failure Code(s): J96.00 - Acute respiratory failure, unspecified whether with hypoxia or hypercapnia Status: Acute (3) Necrotizing fasciitis Code(s): M72.6 - Necrotizing fasciitis Status: Acute (4) Type 2 diabetes mellitus with hyperosmolar nonketotic hyperglycemia Code(s): E11.01 - Type 2 diabetes mellitus with hyperosmolarity with coma Status: Acute (5) MARIO (acute kidney injury) Code(s): N17.9 - Acute kidney failure, unspecified Status: Acute (6) Lactic acidosis Code(s): E87.2 - Acidosis Status: Acute - Assessment and Plan Plan: Assessment: 52yF with large necrotizing soft tissue infection of the lower back and sacrum complicated by septic shock and multiorgan dysfunction. Critically ill. still in shock. continue ivf and vasopressors. Agree with plan for re- exploration in next 24-48h. Would strongly consider diverting colostomy to keep sacrum clean, but will leave this decision to the general surgery team. Plan: Neurological Acute metabolic encephalopathy -Sedation with propofol if tolerated -Analgesia with fentanyl -Encephalopathy largely due to sepsis and hyperglycemia - RASS goal -2. Cardiovascular Septic Shock -wean vasopressors for goal map > 65 mmHg. -Continue volume loading with isotonic crystalloid -Follow acid-base balance closely Respiratory Acute hypoxic and hypercarbic respiratory failure -Intubation and mechanical ventilation -Bronchodilators - HOB elevated - vent bundle - wean fio2 for goal spo2 > 90% - increase PEEP to 8 - no weaning of mechanical ventilation until shock improves Endocrinology Diabetes Severe hypoglycemia - hold levemir - q2h glucose checks - place back on insulin drip for improved control. Hematology/Infectious Disease Septic Shock Necrotizing soft tissue infection -Obvious infection. -Follow white count and platelet count closely - abx per ID. continue clindamycin until second debridement rules out further extension of necrosis. - daily cbc GI Acute protein calorie malnutrition- severe - NPO while in shock - NG tube to LIWS - send pre-albumin: appears quite malnourished. - daily bmp, mg, phos Acute kidney injury -Tristan required for hourly urine output -High risk for further deterioration in renal function -Needs Tristan at this time to protect perineal region, removed shortly. Prophylaxis -Pepcid for GI ulcer prophylaxis -SCDs for DVT prophylaxis -Hold chemical DVT prophylaxis until surgical decisions are made Lines: Left subclavian central venous line placed 12/15 Overall impression: This woman is critically ill and in septic shock with necrotizing fasciitis emanating from a deep chronic sacral decubitus. She will undoubtedly require multiple debridements following this. She remains unstable and critically ill. Critical care time 52 minutes aside from invasive procedures.
--- NOTE | 2017-12-17 13:34 | P.PNGS ---
Subjective Patient reports: still having pain (remains in critical condition, intubated sedated) Physical Exam Vital signs: Vital Signs 12/16/17 13:45 12/16/17 14:00 12/16/17 14:15 Temperature Pulse Rate 83 91 H 90 Respiratory Rate 18 18 19 Blood Pressure Pulse Oximetry 100 100 100 12/16/17 14:30 12/16/17 14:45 12/16/17 15:00 Temperature Pulse Rate 93 H 96 H 100 H Respiratory Rate 18 19 18 Blood Pressure Pulse Oximetry 100 100 100 12/16/17 15:15 12/16/17 15:16 12/16/17 15:30 Temperature Pulse Rate 103 H 104 H 106 H Respiratory Rate 18 19 18 Blood Pressure 96/54 L Pulse Oximetry 100 100 100 12/16/17 15:45 12/16/17 16:00 12/16/17 16:15 Temperature Pulse Rate 105 H 106 H 107 H Respiratory Rate 19 20 21 Blood Pressure Pulse Oximetry 100 100 100 12/16/17 16:30 12/16/17 16:45 12/16/17 17:00 Temperature 98 F Pulse Rate 107 H 107 H 109 H Respiratory Rate 19 19 19 Blood Pressure Pulse Oximetry 100 100 100 12/16/17 17:15 12/16/17 17:16 12/16/17 17:27 Temperature Pulse Rate 108 H 108 H Respiratory Rate 19 20 19 Blood Pressure 93/51 L Pulse Oximetry 100 100 100 12/16/17 17:30 12/16/17 17:45 12/16/17 18:00 Temperature Pulse Rate 111 H 115 H 118 H Respiratory Rate 20 19 21 Blood Pressure Pulse Oximetry 100 100 100 12/16/17 18:15 12/16/17 18:30 12/16/17 18:45 Temperature Pulse Rate 119 H 121 H 120 H Respiratory Rate 22 25 H 22 Blood Pressure Pulse Oximetry 100 100 100 12/16/17 19:00 12/16/17 19:15 12/16/17 19:16 Temperature Pulse Rate 118 H 118 H 118 H Respiratory Rate 17 21 18 Blood Pressure 131/64 Pulse Oximetry 100 100 100 12/16/17 19:30 12/16/17 19:45 12/16/17 20:00 Temperature 99.2 F Pulse Rate 120 H 121 H 125 H Respiratory Rate 17 21 18 Blood Pressure Pulse Oximetry 100 100 100 12/16/17 20:15 12/16/17 20:30 12/16/17 20:45 Temperature Pulse Rate 124 H 124 H 123 H Respiratory Rate 17 18 18 Blood Pressure Pulse Oximetry 100 100 100 12/16/17 21:00 12/16/17 21:15 12/16/17 21:16 Temperature Pulse Rate 120 H 118 H 116 H Respiratory Rate 18 19 19 Blood Pressure 116/56 L Pulse Oximetry 100 100 100 12/16/17 21:30 12/16/17 21:45 12/16/17 22:00 Temperature Pulse Rate 117 H 118 H 116 H Respiratory Rate 19 20 10 L Blood Pressure Pulse Oximetry 100 100 100 12/16/17 22:15 12/16/17 22:24 12/16/17 22:30 Temperature Pulse Rate 117 H 117 H 116 H Respiratory Rate 9 L 19 8 L Blood Pressure 103/55 L Pulse Oximetry 99 100 100 12/16/17 22:45 12/16/17 22:51 12/16/17 23:00 Temperature Pulse Rate 114 H 117 H 118 H Respiratory Rate 18 18 21 Blood Pressure 106/58 L 118/56 L Pulse Oximetry 99 97 96 12/16/17 23:15 12/16/17 23:30 12/16/17 23:45 Temperature Pulse Rate 120 H 117 H 126 H Respiratory Rate 29 H 30 H 35 H Blood Pressure 98/56 L 103/57 L 105/55 L Pulse Oximetry 95 95 94 L 12/16/17 23:55 12/17/17 00:00 12/17/17 00:15 Temperature 99 F 99 F Pulse Rate 126 H 125 H 123 H Respiratory Rate 18 19 18 Blood Pressure 102/57 L 106/62 102/58 L Pulse Oximetry 94 L 95 87 L 12/17/17 00:30 12/17/17 00:33 12/17/17 00:45 Temperature Pulse Rate 122 H 117 H Respiratory Rate 20 18 22 Blood Pressure 131/63 124/63 Pulse Oximetry 83 L 94 L 94 L 12/17/17 01:00 12/17/17 01:15 12/17/17 01:30 Temperature Pulse Rate 114 H 110 H 120 H Respiratory Rate 18 18 15 Blood Pressure 124/60 109/55 L 126/59 L Pulse Oximetry 93 L 93 L 92 L 12/17/17 01:45 12/17/17 02:00 12/17/17 02:15 Temperature Pulse Rate 121 H 123 H 118 H Respiratory Rate 18 18 17 Blood Pressure 132/61 124/57 L 151/68 H Pulse Oximetry 91 L 91 L 91 L 12/17/17 02:30 12/17/17 02:45 12/17/17 03:00 Temperature Pulse Rate 124 H 123 H 118 H Respiratory Rate 19 18 18 Blood Pressure 125/56 L 109/57 L 107/57 L Pulse Oximetry 91 L 91 L 92 L 12/17/17 03:15 12/17/17 03:30 12/17/17 03:45 Temperature Pulse Rate 116 H 110 H 108 H Respiratory Rate 18 18 18 Blood Pressure 104/56 L 104/58 L 123/57 L Pulse Oximetry 92 L 93 L 92 L 12/17/17 04:00 12/17/17 04:04 12/17/17 04:15 Temperature 99.4 F Pulse Rate 103 H 107 H Respiratory Rate 18 18 18 Blood Pressure 127/62 147/68 H Pulse Oximetry 93 L 92 L 92 L 12/17/17 04:30 12/17/17 04:45 12/17/17 05:00 Temperature Pulse Rate 124 H 113 H 106 H Respiratory Rate 23 18 18 Blood Pressure 138/67 135/64 125/60 Pulse Oximetry 91 L 92 L 93 L 12/17/17 05:15 12/17/17 05:39 12/17/17 05:50 Temperature 100.3 F H 99.4 F Pulse Rate 102 H 104 H 106 H Respiratory Rate 18 18 18 Blood Pressure 133/65 120/67 168/67 H Pulse Oximetry 93 L 91 L 89 L 12/17/17 08:00 12/17/17 08:10 12/17/17 08:35 Temperature 98.5 F Pulse Rate 95 H Respiratory Rate 18 18 Blood Pressure Pulse Oximetry 97 97 96 12/17/17 09:00 12/17/17 12:00 12/17/17 12:25 Temperature 98.5 F Pulse Rate 94 H 95 H Respiratory Rate 20 19 Blood Pressure Pulse Oximetry 96 96 Intake & Output 12/16/17 12/17/17 12/17/17 18:59 06:59 18:59 Intake Total 3500 / 3500 4240 / 4240 1650 / 1650 Output Total 1100 / 1100 1525 / 1525 Balance 2400 / 2400 2715 / 2715 1650 / 1650 Weight 78.3 kg Intake: IV 2500 / 2500 3840 / 3840 1650 / 1650 D5W/LR Inj 1,000 ML @ 150 mls/ 1999 / 1999 2000 / 1999 1000 / 1000 hr IV.CONT .Q6H40M [facility] Rx#: [id number] Primacor Inj 20 MG In NS Inj 80 100 / 100 ML @ 0.25 MCG/KG/MIN 5.38 mls/ hr IV.CONT .[id number] [facility] Rx#: [id number] Diprivan 1000 mg/100 ml Inj 1, 100 / 100 100 / 100 000 mg In 100 ml @ 5 MCG/KG/MIN 1.837 mls/hr IV.CONT TITRATE PRN Rx#:[id number] Maxipime Inj 2,000 MG In NS Inj 100 / 100 100 / 100 100 ML @ 200 mls/hr IV.SIG Q12H [facility] Rx#:[id number] Cleocin 900 mg/NS Premix 900 mg 50 / 50 100 / 100 50 / 50 In 50 ml @ 100 mls/hr IV.SIG Q8H [facility] Rx#:[id number] LR 1000 mL Inj 1,000 ML @ Wide 1000 / 1000 Open IV.SIG BOLUS ONE Rx#: [id number] Levophed Inj 4 MG In NS Inj 246 250 / 250 250 / 250 250 / 250 ML @ 2 MCG/MIN 7.5 mls/hr IV. SIG TITRATE PRN Rx#:[id number] NS Inj 250 ML @ 15 mls/hr IV. 40 / 40 SIG ONCE [facility] Rx#:[id number] fentaNYL 10 mcg/mL Premix Drip 250 / 250 2,500 mcg In 250 ml @ 50 MCG/HR 5 mls/hr IV.SIG TITRATE PRN Rx #:[id number] Other 1000 / 1000 Intake (Blood Product) Amt 400 / 400 Rbc As-3 Leukoreduced Unit 400 / 400 [id number] Output: Urine 1000 / 1000 Urine Amount (Catheter) 400 / 400 1 400 / 400 Gastric Drainage 400 / 400 175 / 175 Nasogastric Tube 400 / 400 175 / 175 Wound Vac Amount 300 / 300 350 / 350 Posterior Sacrum 300 / 300 350 / 350 Other: Mode Setting Posterior Sacrum Continuous Continuous Continuous Other Intake Source Saline Solution - Routine Abdominal Exam Present: soft - Routine Skin Exam Present: intact (vac good seal, serosang output) - Urinary Catheter Management 1 Cath placed during this visit: yes Reason for continuing: Hourly intake/output Insertion date: 12/15/17 Results - Labs 12/17/17 04:16 12/17/17 04:16 Laboratory Results - last 24 hr 12/15/17 12/16/17 12/16/17 16:51 17:36 17:38 WBC RBC Hgb Hct MCV MCH MCHC RDW Plt Count MPV Prelim Diff (Auto) Neut % (Auto) Lymph % (Auto) [place] % (Auto) Eos % (Auto) Baso % (Auto) Neut # (Auto) Lymph # (Auto) [place] # (Auto) Eos # (Auto) Baso # (Auto) WBC Differential Seg Neuts % (Manual) Band Neuts % (Manual) Lymphocytes % (Manual) Metamyelocytes % (Man) Abs Neuts (Manual) Differential Comment Toxic Granulation Toxic Vacuolation Dohle Bodies Platelet Estimate Platelet Morphology RBC Morphology Puncture Site Patient Temperature O2 Saturation ABG pH ABG pCO2 ABG pO2 ABG HCO3 ABG O2 Content ABG Base Excess ABG Methemoglobin Hemoglobin Carboxyhemoglobin O2 Delivery Device Vent Setting Inspired O2 Critical Value Sodium Potassium Chloride Carbon Dioxide Anion Gap BUN Creatinine Estimated GFR POC Glucose 42 L* 40 L* Random Glucose Calcium Prot Corrected Calcium Total Bilirubin AST ALT Alkaline Phosphatase Total Protein Albumin MTS Gel Crossmatch See Detail Bld Prod Order Comment 12/16/17 12/16/17 12/16/17 17:47 18:00 18:28 WBC RBC Hgb Hct MCV MCH MCHC RDW Plt Count MPV Prelim Diff (Auto) Neut % (Auto) Lymph % (Auto) [place] % (Auto) Eos % (Auto) Baso % (Auto) Neut # (Auto) Lymph # (Auto) [place] # (Auto) Eos # (Auto) Baso # (Auto) WBC Differential Seg Neuts % (Manual) Band Neuts % (Manual) Lymphocytes % (Manual) Metamyelocytes % (Man) Abs Neuts (Manual) Differential Comment Toxic Granulation Toxic Vacuolation Dohle Bodies Platelet Estimate Platelet Morphology RBC Morphology Puncture Site Patient Temperature O2 Saturation ABG pH ABG pCO2 ABG pO2 ABG HCO3 ABG O2 Content ABG Base Excess ABG Methemoglobin Hemoglobin Carboxyhemoglobin O2 Delivery Device Vent Setting Inspired O2 Critical Value Sodium Potassium Chloride Carbon Dioxide Anion Gap BUN Creatinine Estimated GFR POC Glucose 40 L* 135 H Random Glucose 34 L* D Calcium Prot Corrected Calcium Total Bilirubin AST ALT Alkaline Phosphatase Total Protein Albumin MTS Gel Crossmatch Bld Prod Order Comment 12/16/17 12/16/17 12/16/17 21:07 21:38 23:24 WBC RBC Hgb Hct MCV MCH MCHC RDW Plt Count MPV Prelim Diff (Auto) Neut % (Auto) Lymph % (Auto) [place] % (Auto) Eos % (Auto) Baso % (Auto) Neut # (Auto) Lymph # (Auto) [place] # (Auto) Eos # (Auto) Baso # (Auto) WBC Differential Seg Neuts % (Manual) Band Neuts % (Manual) Lymphocytes % (Manual) Metamyelocytes % (Man) Abs Neuts (Manual) Differential Comment Toxic Granulation Toxic Vacuolation Dohle Bodies Platelet Estimate Platelet Morphology RBC Morphology Puncture Site Patient Temperature O2 Saturation ABG pH ABG pCO2 ABG pO2 ABG HCO3 ABG O2 Content ABG Base Excess ABG Methemoglobin Hemoglobin Carboxyhemoglobin O2 Delivery Device Vent Setting Inspired O2 Critical Value Sodium Potassium Chloride Carbon Dioxide Anion Gap BUN Creatinine Estimated GFR POC Glucose 44 L* 139 H 89 Random Glucose Calcium Prot Corrected Calcium Total Bilirubin AST ALT Alkaline Phosphatase Total Protein Albumin MTS Gel Crossmatch Bld Prod Order Comment 12/16/17 12/17/17 12/17/17 23:44 01:56 02:23 WBC RBC Hgb Hct MCV MCH MCHC RDW Plt Count MPV Prelim Diff (Auto) Neut % (Auto) Lymph % (Auto) [place] % (Auto) Eos % (Auto) Baso % (Auto) Neut # (Auto) Lymph # (Auto) [place] # (Auto) Eos # (Auto) Baso # (Auto) WBC Differential Seg Neuts % (Manual) Band Neuts % (Manual) Lymphocytes % (Manual) Metamyelocytes % (Man) Abs Neuts (Manual) Differential Comment Toxic Granulation Toxic Vacuolation Dohle Bodies Platelet Estimate Platelet Morphology RBC Morphology Puncture Site Patient Temperature O2 Saturation ABG pH ABG pCO2 ABG pO2 ABG HCO3 ABG O2 Content ABG Base Excess ABG Methemoglobin Hemoglobin Carboxyhemoglobin O2 Delivery Device Vent Setting Inspired O2 Critical Value Sodium Potassium 3.7 Chloride Carbon Dioxide Anion Gap BUN Creatinine Estimated GFR POC Glucose 66 L 155 H Random Glucose Calcium Prot Corrected Calcium Total Bilirubin AST ALT Alkaline Phosphatase Total Protein Albumin MTS Gel Crossmatch Bld Prod Order Comment 12/17/17 12/17/17 12/17/17 03:44 04:16 04:16 WBC 15.1 H RBC 2.63 L Hgb 7.2 L Hct 21.9 L MCV 83.1 MCH 27.4 MCHC 33.0 RDW 14.9 Plt Count 165 D MPV 8.0 Prelim Diff (Auto) Slide review pending Neut % (Auto) 80.8 H Lymph % (Auto) 16.8 [place] % (Auto) 1.7 Eos % (Auto) 0.3 Baso % (Auto) 0.4 Neut # (Auto) 12.2 H Lymph # (Auto) 2.5 [place] # (Auto) 0.2 Eos # (Auto) 0.0 Baso # (Auto) 0.1 WBC Differential Manual diff final Seg Neuts % (Manual) 77 H Band Neuts % (Manual) 5 Lymphocytes % (Manual) 15 Metamyelocytes % (Man) 3 H Abs Neuts (Manual) 12.8 H Differential Comment . Toxic Granulation 1+ H Toxic Vacuolation Present H Dohle Bodies Present H Platelet Estimate Normal Platelet Morphology Normal RBC Morphology Normal Puncture Site Patient Temperature O2 Saturation ABG pH ABG pCO2 ABG pO2 ABG HCO3 ABG O2 Content ABG Base Excess ABG Methemoglobin Hemoglobin Carboxyhemoglobin O2 Delivery Device Vent Setting Inspired O2 Critical Value Sodium 140 Potassium 3.6 Chloride 110 H Carbon Dioxide 21.5 Anion Gap 9 BUN 26 H Creatinine 1.02 H Estimated GFR 57 L POC Glucose 122 H Random Glucose 112 H Calcium 6.4 L* Prot Corrected Calcium 7.4 L* Total Bilirubin 0.6 AST 9 L ALT 8 L Alkaline Phosphatase 260 H Total Protein 5.1 L Albumin 0.8 L MTS Gel Crossmatch Bld Prod Order Comment 12/17/17 12/17/17 12/17/17 05:17 06:22 08:21 WBC RBC Hgb Hct MCV MCH MCHC RDW Plt Count MPV Prelim Diff (Auto) Neut % (Auto) Lymph % (Auto) [place] % (Auto) Eos % (Auto) Baso % (Auto) Neut # (Auto) Lymph # (Auto) [place] # (Auto) Eos # (Auto) Baso # (Auto) WBC Differential Seg Neuts % (Manual) Band Neuts % (Manual) Lymphocytes % (Manual) Metamyelocytes % (Man) Abs Neuts (Manual) Differential Comment Toxic Granulation Toxic Vacuolation Dohle Bodies Platelet Estimate Platelet Morphology RBC Morphology Puncture Site Patient Temperature O2 Saturation ABG pH ABG pCO2 ABG pO2 ABG HCO3 ABG O2 Content ABG Base Excess ABG Methemoglobin Hemoglobin Carboxyhemoglobin O2 Delivery Device Vent Setting Inspired O2 Critical Value Sodium Potassium Chloride Carbon Dioxide Anion Gap BUN Creatinine Estimated GFR POC Glucose 110 100 Random Glucose Calcium Prot Corrected Calcium Total Bilirubin AST ALT Alkaline Phosphatase Total Protein Albumin MTS Gel Crossmatch See Detail Bld Prod Order Comment Cancelled 12/17/17 12/17/17 12/17/17 08:22 10:43 12:07 WBC RBC Hgb Hct MCV MCH MCHC RDW Plt Count MPV Prelim Diff (Auto) Neut % (Auto) Lymph % (Auto) [place] % (Auto) Eos % (Auto) Baso % (Auto) Neut # (Auto) Lymph # (Auto) [place] # (Auto) Eos # (Auto) Baso # (Auto) WBC Differential Seg Neuts % (Manual) Band Neuts % (Manual) Lymphocytes % (Manual) Metamyelocytes % (Man) Abs Neuts (Manual) Differential Comment Toxic Granulation Toxic Vacuolation Dohle Bodies Platelet Estimate Platelet Morphology RBC Morphology Puncture Site Art line Patient Temperature 98.6 O2 Saturation 96 ABG pH 7.40 ABG pCO2 35 L ABG pO2 149 H ABG HCO3 21 L ABG O2 Content 12.5 ABG Base Excess -3.3 L ABG Methemoglobin 1.5 Hemoglobin 9.1 L Carboxyhemoglobin 1.6 O2 Delivery Device Ventilator Vent Setting Prvc/ac Inspired O2 60 Critical Value No Sodium Potassium Chloride Carbon Dioxide Anion Gap BUN Creatinine Estimated GFR POC Glucose 120 H 136 H Random Glucose Calcium Prot Corrected Calcium Total Bilirubin AST ALT Alkaline Phosphatase Total Protein Albumin MTS Gel Crossmatch Bld Prod Order Comment - Imaging Imaging: ITS Impressions Femur X-Ray 12/15/17 07:05 CONCLUSION: No fracture is identified. There is extensive soft tissue air in the right gluteal region and extending into the proximal and mid posterior thigh. The soft tissue air suggests an open wound. Pelvis X-Ray 12/15/17 07:05 CONCLUSION: No fracture is identified. However, there is extensive soft tissue air in the left gluteal region and left proximal thigh. Pelvis CT 12/15/17 07:52 CONCLUSION: 1. No fracture is identified. 2. Extensive subcutaneous and soft tissue gas bilaterally, left greater than right. It is most severe in the left gluteal region and extends into the proximal posterior thigh. The soft tissue air dissects through the gluteal musculature. There is adjacent subcutaneous edema. Chest X-Ray 12/17/17 04:00 CONCLUSION: No significant change. Left greater than right parenchymal opacities persist. Assessment and Plan - Assessment (1) Necrotizing fasciitis of pelvic region and thigh Code(s): M72.6 - Necrotizing fasciitis Status: Acute Plan: 52yo female with multiple medical comorbidities, s/p debridement of nec fasc critically ill to OR for VAC change tomorrow recommend transfuse prbc for anemia of blood loss
[2017-12-17] MEDS ORDERED: Phenylephrine/NS 1000 MCG/10ML Syringe IV.PUSH ONE (13:41)
[2017-12-17] MEDS ORDERED: Vancomycin Inj 1,500 MG in Sodium Chlor 0.9% Inj 500 ML IV.SIG ONE (16:00)
--- NOTE | 2017-12-17 17:29 | P.PNWCN ---
Wound Care Nurse Consult Description: Consult for Wound Management of L toes and R knee Communicated with: RN Aleja Spears, VISHAL Heck and Doctor Recommendation: 1.Please consult podiatry for necrotic wounds on L toes. 2. Please paint eschar on L toes with povidone-iodine BID and leave open to air until seen by podiatry. 3. Cleanse wound to R knee with normal saline and pat dry. apply optifoam gentle dressing 4x4 and change dressing every 3 days or PRN if saturated or dislodged. Wound/Pressure Injury - Patient Status Premedicated for Pain Prior to Dressing Change: No - Wound Right Knee Wound Assessment: Ongoing Wound Type: Traumatic Wound Is This a Chronic Wound: No Requested from Provider a Wound Care Consult: Yes (Wound care saw patient today) Length (cm): 1 (cm) Width (cm): 1.2 (cm) Depth (cm): 0.1 (cm) Wound Bed Appearance: [place] Wound Bed Appearance: 100% pink Surrounding Tissue Appearance: [place] Surrounding Tissue Temperature: Cool Drainage Description: Serous Drainage Amount: Minimal Drainage Odor: No Odor Dressing Status: Open to Air Cleansing Solution: Saline Wound Margin Description: Well defined and open Left Toe - 2nd Digit Wound Assessment: Ongoing Wound Type: Traumatic Wound Is This a Chronic Wound: No Requested from Provider a Wound Care Consult: Yes (Wound care saw patient) Length (cm): 2 (~2cm) Width (cm): 1 (~1cm) Depth (cm): 0 (eschar) Wound Bed Appearance: Necrotic Wound Bed Appearance: 100% eschar Surrounding Tissue Temperature: Cool Drainage Amount: None Dressing Status: Open to Air Left Toe - 3rd Digit Wound Assessment: Ongoing Wound Type: Traumatic Wound Is This a Chronic Wound: No Requested from Provider a Wound Care Consult: Yes (Wound care saw patient) Length (cm): 1 (~1cm) Width (cm): 1 (~1cm) Depth (cm): 0 (eschar) Wound Bed Appearance: Necrotic Surrounding Tissue Appearance: Taut Surrounding Tissue Temperature: Cool Drainage Amount: None Dressing Status: Open to Air Left Toe - 4th Digit Wound Assessment: Ongoing Wound Type: Traumatic Wound Is This a Chronic Wound: No Requested from Provider a Wound Care Consult: Yes Length (cm): 1 (~1cm) Width (cm): 0.5 (~0.5cm) Depth (cm): 0 (eschar) Wound Bed Appearance: Necrotic Surrounding Tissue Temperature: Cool Drainage Amount: None Dressing Status: Open to Air - Additional Information Patient seen on [facility] for wounds to L toes and R knee.Patient is intubated and sedated. L 2nd, 3rd and 4th toes were observed with dry eschar that is dry and intact.Periwound presents with erythema and slight ecchymosis to periwound of L 2nd toe. Left toe wounds open to air. RN to apply Povidone-iodine BID until seen by podiatry, then wound care is deferred to podiatry. Assessed R knee open wound as shallow partial thickness wound with 100% pink tissue that is moist. Periwound presents with slight maceration circumferentially. Wound was cleansed wound with normal saline and patted dry. Left open to air. RN to apply Optifoam gentle border 4x4 available through misogram only and change every 3 days or as needed for saturation or dislodgement.
[2017-12-17] MEDS: fentaNYL 10 mcg/mL Premix Drip 2,500 MCG/250 ML BAG IV.SIG PRN (20:09)
[2017-12-17] MEDS: Insulin Regular (For Infusion) 100 UNIT in Sodium Chlor 0.9% Inj 99 ML IV.CONT PRN (21:00)
[2017-12-18] MEDS ORDERED: Sod Chloride 0.9% Inj 1,000 ML IV.SIG ONE (01:00)
[2017-12-18] MEDS: Oral Hygiene Kit OROPHARYNG SCH ×5 (01:04→23:52)
[2017-12-18] MEDS: Milrinone Inj 20 MG in Sodium Chlor 0.9% Inj 80 ML IV.CONT SCH ×2 (01:20→12:08)
[2017-12-18] MEDS: Propofol 1000 mg/100 ml Inj 1,000 MG/100 ML BOTTLE IV.CONT PRN ×3 (02:00→23:53)
[2017-12-18 04:08] LABS: Baso # (Auto) 0.1 th/mm3 (0.0-0.2); Baso % (Auto) 0.5 % (0.0-2.0); Eos % (Auto) 0.2 % (0.0-4.0); Hematocrit 27.7 % (35.0-46.0); Hemoglobin 9.7 gm/dL (11.6-15.3); Lymph # (Auto) 2.4 th/mm3 (1.0-4.8); Lymph % (Auto) 11.1 % (9.0-44.0); Mean Corpuscular HGB Conc 34.9 % (32.0-36.0); Mean Corpuscular Hemoglobin 28.5 pg (27.0-34.0); Mean Corpuscular Volume 81.6 fL (80.0-100.0); Mean Platelet Volume 7.9 fL (7.0-11.0); Mono # (Auto) 0.2 th/mm3 (0.0-0.9); Mono % (Auto) 0.8 % (0.0-8.0); Neut % (Auto) 87.4 % (16.0-70.0); Platelet Count 138 th/mm3 (150-450); Red Blood Count 3.39 mil/mm3 (4.00-5.30); White Blood Count 21.7 th/mm3 (4.0-11.0)
[2017-12-18] MEDS: Norepinephrine Inj 4 MG in Sodium Chlor 0.9% Inj 246 ML IV.SIG PRN ×3 (04:20→12:08)
[2017-12-18 04:32] LABS: Albumin 0.9 g/dL (3.4-5.0); Calcium 6.7 mg/dL (8.5-10.1); Carbon Dioxide 20.1 meq/L (21.0-32.0); Potassium 4.1 meq/L (3.5-5.1); Total Protein 5.7 g/dL (6.4-8.2); Vancomycin,Random 24.6 Comment
[2017-12-18] MEDS: Chlorhexidine Gluconate 2% 1 Pack (2 Cloths) TOPICAL SCH (04:37)
[2017-12-18] MEDS ORDERED: Calcium Chloride Inj 1 GM in Sodium Chlor 0.9% Inj 100 ML IV.SIG ONE (05:00)
[2017-12-18] MEDS: Clindamycin 900 mg/NS Premix 900 MG/50 ML PIGGYBACK IV.SIG SCH ×3 (05:27→20:08)
[2017-12-18 05:37] LABS: Lymphocytes 11 % (9-44); Metamyelocytes 3 % (0-1); Monocytes 1 % (0-8); Myelocytes 1 % (0-0); Tallied Nucleated RBC 1 (0-0)
[2017-12-18 05:38] LABS: Dohle Bodies Present; Platelet Morphology Normal (Normal); RBC Morphology Normal (Normal); Toxic Granulation 1+; Toxic Vacuolation Present
[2017-12-18 06:07] LABS: ABG Base Excess -6.6 mmol/L (-2-2); ABG PCO2 34 mmHg (38-42); ABG PO2 92 mmHg (61-120)
[2017-12-18] MEDS ORDERED: Albumin Human 5% Inj 500 ML IV.SIG STA (07:16)
--- NOTE | 2017-12-18 07:52 | P.PNCC ---
Subjective Subjective Remarks/Hospital Course: This 52-year-old woman with long-standing uncontrolled diabetes mellitus and severe peripheral arterial disease related to a long-term heavy smoking history was found down at her home and initial blood glucose was 610. Her lower back and buttocks was exquisitely tender and a mid line stage IV sacral decubitus was oozing purulent material and inflamed and the surrounding soft tissue. White count was not elevated but 90% neutrophils. Temperature 97 degrees. Moderately encephalopathic though conversant. X-rays revealed no fractures in the pelvis but CAT scan demonstrated extensive subcutaneous air emanating in both directions left and right from the mid sacral region. This is clearly necrotizing fasciitis or some other gas-forming infection and the woman is critically ill. She received vancomycin, Zosyn, and clindamycin antibiotic therapy as quickly as possible and was transferred to the ICU for ongoing resuscitation. Because of worsening hemodynamic stability she required intubation and mechanical ventilation followed by central line placement on arrival to the ICU. Insulin drip infusion was started in the emergency department and glucose had declined into the low 400s. She was not in ketoacidosis but lactic acid was elevated at 3.1. General surgery and orthopedic surgery were consulted for recommendations and it was felt that this woman was too unstable to tolerate an operative procedure immediately. We continue her ongoing resuscitation and trial in the ICU at this stage. 12/16: Following aggressive resuscitation yesterday for the treatment of severe hyperglycemia, septic shock, respiratory failure, metabolic acidosis, acute kidney injury, the patient went to the operating room with an extensive wide debridement bilateral gluteal and left thigh soft tissue and muscle. Primary antibiotic coverage at this point is vancomycin, cefepime, clindamycin. The patient started to make urine late yesterday afternoon and has continued to acceptable output since. Lactic acidosis is 2.0 this morning but metabolic acidosis persists despite bicarb drip. She remains on vasopressor support and hemodynamically unstable. 12/17: s/p debridement of large nec fasc wound. remains in shock today. also very hypoglycemic requiring multiple D50 amps overnight. 12/18: back in worsening shock. vasopressor support higher. required 2L crystalloid overnight and additional 1L and 500cc albumin today. ivc completely flat on bedside echo. LVEF hyperdynamic. no pericardial effusion. spoken with gen surg. plan to go back early to eval for worsening necrosis. fio2 also up to 100% and peep 10- hypoxic, likely early ARDS. Objective Vital Signs / I&O: Vital Signs 12/17/17 08:00 12/17/17 08:10 12/17/17 08:35 Temperature 36.9 C Pulse Rate 95 H Respiratory Rate 18 18 Pulse Oximetry 97 97 96 12/17/17 09:00 12/17/17 12:00 12/17/17 12:25 Temperature 36.9 C Pulse Rate 94 H 95 H Respiratory Rate 20 19 Pulse Oximetry 96 96 12/17/17 15:48 12/17/17 16:00 12/17/17 20:00 Temperature 36.9 C 36.5 C Pulse Rate 104 H 93 H Respiratory Rate 18 20 19 Pulse Oximetry 93 L 96 96 12/17/17 20:54 12/18/17 00:00 12/18/17 00:35 Temperature 36.6 C Pulse Rate 104 H Respiratory Rate 19 23 20 Pulse Oximetry 96 91 L 92 L 12/18/17 03:42 12/18/17 04:00 Temperature 37.6 C H Pulse Rate 111 H Respiratory Rate 19 21 Pulse Oximetry 93 L 92 L Intake & Output 12/17/17 12/18/17 12/18/17 18:59 06:59 18:59 Intake Total 3265 / 3265 5010 / 5010 Output Total 2450 / 2450 2275 / 2275 Balance 815 / 815 2735 / 2735 Intake: IV 3265 / 3265 3010 / 3010 D5W/LR Inj 1,000 ML @ 150 mls/ 2000 / 2000 1000 / 1000 hr IV.CONT .Q6H40M [facility] Rx#: [id number] Primacor Inj 20 MG In NS Inj 80 100 / 100 ML @ 0.25 MCG/KG/MIN 5.38 mls/ hr IV.CONT .[id number] [facility] Rx#: [id number] Diprivan 1000 mg/100 ml Inj 1, 100 / 100 100 / 100 000 mg In 100 ml @ 5 MCG/KG/MIN 1.837 mls/hr IV.CONT TITRATE PRN Rx#:[id number] Calcium Chloride Inj 1 GM In NS 110 / 110 Inj 100 ML @ 220 mls/hr IV.SIG ONCE ONE Rx#:[id number] Maxipime Inj 2,000 MG In NS Inj 100 / 100 100 / 100 100 ML @ 200 mls/hr IV.SIG Q12H [facility] Rx#:[id number] Cleocin 900 mg/NS Premix 900 mg 50 / 50 100 / 100 In 50 ml @ 100 mls/hr IV.SIG Q8H [facility] Rx#:[id number] Levophed Inj 4 MG In NS Inj 246 250 / 250 250 / 250 ML @ 2 MCG/MIN 7.5 mls/hr IV. SIG TITRATE PRN Rx#:[id number] NS Inj 1,000 ML @ As Directed 1000 / 1000 IV.SIG NOW ONE Rx#:[id number] Vancomycin Inj 1,500 MG In NS 515 / 515 Inj 500 ML @ 250 mls/hr IV.SIG ONCE ONE Rx#:[id number] fentaNYL 10 mcg/mL Premix Drip 250 / 250 2,500 mcg In 250 ml @ 50 MCG/HR 5 mls/hr IV.SIG TITRATE PRN Rx #:[id number] Other 1999 Output: Urine 100 / 100 1475 / 1475 Urine Amount (Catheter) 2150 / 2150 1 215 / 2150 Gastric Drainage 125 / 125 Nasogastric Tube 125 / 125 Wound Vac Amount 75 / 75 800 / 800 Posterior Sacrum 75 / 75 800 / 800 Other: Mode Setting Posterior Sacrum Continuous Intermittent Other Intake Source Saline Solution Date of Last Bowel Movement 12/17/17 12/17/17 # Bowel Movements 1 # Incontinent Bowel Movements 1 Result Diagrams: 12/18/17 03:45 12/18/17 09:58 Objective Remarks: General: Ill-appearing middle-aged woman, intubated and sedated Head: Atraumatic, normal, edentulous Neck: Supple, orotracheal intubation Lungs: equal chest rise. prvc. fio2 100%. peep 10. Heart: tachycardic rate and regular rhythm. no JVD. Abdomen: Soft, no guarding, no peritoneal irritation. Back: Wound VAC in place over lower lumbar region there is a moderate erythema to the skin over the pelvis and buttocks. Midline sacral stage IV decubitus has been debrided. Extremities: Tepid, adequately perfused, status post below-knee amputation right side, necrotic ulceration over several toes left foot Neurological: Intubated and sedated she moves 4 limbs to stimulation. Pupils responsive. Cough, gag intact. Assessment and Plan - Problem List (1) Septic shock with acute organ dysfunction due to anaerobic bacteria Code(s): A41.4 - Sepsis due to anaerobes; R65.21 - Severe sepsis with septic shock Status: Acute (2) Acute respiratory failure Code(s): J96.00 - Acute respiratory failure, unspecified whether with hypoxia or hypercapnia Status: Acute (3) Necrotizing fasciitis Code(s): M72.6 - Necrotizing fasciitis Status: Acute (4) Type 2 diabetes mellitus with hyperosmolar nonketotic hyperglycemia Code(s): E11.01 - Type 2 diabetes mellitus with hyperosmolarity with coma Status: Acute (5) MARIO (acute kidney injury) Code(s): N17.9 - Acute kidney failure, unspecified Status: Acute (6) Lactic acidosis Code(s): E87.2 - Acidosis Status: Acute - Assessment and Plan Plan: Assessment: 52yF with large necrotizing soft tissue infection of the lower back and sacrum complicated by septic shock and multiorgan dysfunction. Worse today than yesterday. to OR urgent/emergently for re-exploration for worsening shock. hypoxia concerning for ARDS. All organ systems worse today. Critically ill. Plan: Neurological Acute metabolic encephalopathy -Sedation with propofol -Analgesia with fentanyl -Encephalopathy largely due to sepsis and hyperglycemia - RASS goal -2. Cardiovascular Septic Shock- worsening Myocardial dysfunction secondary to septic shock -levophed, vasopresin for goal map > 65 mmHg. - leave on milrinone 0.25 mcg/kg/min. may need to transition to epinephrine. -Continue volume loading with isotonic crystalloid -Follow acid-base balance closely Respiratory Acute hypoxic and hypercarbic respiratory failure -Intubation and mechanical ventilation -Bronchodilators - HOB elevated - vent bundle - wean fio2 for goal spo2 > 90% - increase PEEP to 8 - no weaning of mechanical ventilation until shock improves Endocrinology Diabetes Severe hypoglycemia - hold levemir - q2h glucose checks - insulin drip for improved control. Hematology/Infectious Disease Septic Shock Necrotizing soft tissue infection -Obvious infection. -Follow white count and platelet count closely - abx per ID. continue clindamycin until second debridement rules out further extension of necrosis. - daily cbc GI Acute protein calorie malnutrition- severe - NPO while in shock - NG tube to LIWS - send pre-albumin: appears quite malnourished. - daily bmp, mg, phos Acute kidney injury -Tristan required for hourly urine output -High risk for further deterioration in renal function -Needs Tristan at this time to protect perineal region, removed shortly. Prophylaxis -Pepcid for GI ulcer prophylaxis -SCDs for DVT prophylaxis -Hold chemical DVT prophylaxis until surgical decisions are made Lines: Left subclavian central venous line placed 12/15 Overall impression: This woman is critically ill and in septic shock with necrotizing fasciitis emanating from a deep chronic sacral decubitus. remains quite unstable with persistent ivf rescucitative requirement. back to OR today for further debridements. remains in shock and off pathway. Critical care time 59 minutes aside from invasive procedures.
[2017-12-18] MEDS: Dextrose 5%/Lactated Ringer's 1,000 ML IV.CONT SCH ×3 (08:03→23:52)
[2017-12-18] MEDS: Chlorhexidine 0.12% Oral Kit 15 ML UDC OROPHARYNG SCH ×2 (08:03→20:08)
[2017-12-18] MEDS: Beneprotein Powder Packet G-TUBE SCH ×3 (08:05→17:28)
[2017-12-18] MEDS ORDERED: Calcium Chloride Inj 2 GM in Sodium Chlor 0.9% Inj 100 ML IV.SIG ONE (08:30)
[2017-12-18 08:34] LABS: ABG Base Excess -8.7 mmol/L (-2-2); ABG PCO2 35 mmHg (38-42); ABG PO2 275 mmHg (61-120)
[2017-12-18] MEDS ORDERED: Sodium Chlor 0.9% Inj 500 ML IV.CONT ONE (09:31)
--- NOTE | 2017-12-18 09:37 | P.OP ---
- Preoperative Diagnosis (1) Necrotizing fasciitis of pelvic region and thigh (2) Sepsis - Postoperative Diagnosis (1) Necrotizing fasciitis of pelvic region and thigh Procedure: I and d with vac change Surgeon: Ventura Bazzi MD Estimated blood loss (mL): 40 Pathology: none sent Operation and Findings: scant necrotic tissue debrided
[2017-12-18] MEDS: Senna/Docusate Sodium 8.6/50 MG Tablet PO SCH ×2 (09:55→20:09)
[2017-12-18] MEDS: Famotidine PF Inj 20 MG/2 ML Vial IV.PUSH SCH ×2 (09:55→20:09)
[2017-12-18] MEDS: fentaNYL 10 mcg/mL Premix Drip 2,500 MCG/250 ML BAG IV.SIG PRN (11:19)
--- NOTE | 2017-12-18 11:49 | P.PNID ---
Subjective Remarks: Patient went for debridement today 12/18/17. Wound vac changed. Afebrile. Sedated. On the ventilator. Currently on 6 mcg of Levophed. Blood culture has no growth. This is a 52-year-old white female who was brought to the emergency department after she fell at home. The patient was noted to have profound weakness. She was evaluated in the emergency department and at that time had normal temperature and white blood cell count was also normal. She underwent CT scan of the abdomen and pelvis that showed extensive subcutaneous and soft tissue gas bilaterally with the left greater than right, most severe in the left gluteal region and extending into the proximal posterior thigh soft tissue and air-fluid dissecting through the gluteal musculature. The patient has a history of diabetes mellitus. Antibiotics: Clindamycin. Vancomycin Cefepime. Allergies/Adverse Reactions: Allergies No Known Allergies Allergy (Verified 12/15/17 07:54) Objective Vital Signs 12/17/17 12:00 12/17/17 12:25 12/17/17 15:48 Temperature 98.5 F Pulse Rate 95 H Respiratory Rate 20 19 18 Pulse Oximetry 96 96 93 L 12/17/17 16:00 12/17/17 20:00 12/17/17 20:54 Temperature 98.5 F 97.7 F Pulse Rate 104 H 93 H Respiratory Rate 20 19 19 Pulse Oximetry 96 96 96 12/18/17 00:00 12/18/17 00:35 12/18/17 03:42 Temperature 97.9 F Pulse Rate 104 H Respiratory Rate 23 20 19 Pulse Oximetry 91 L 92 L 93 L 12/18/17 04:00 12/18/17 07:52 12/18/17 08:00 Temperature 99.7 F H 97.6 F Pulse Rate 111 H 106 H Respiratory Rate 21 22 22 Pulse Oximetry 92 L 92 L 91 L 12/18/17 09:00 12/18/17 09:32 12/18/17 10:50 Temperature Pulse Rate 100 H Respiratory Rate 22 Pulse Oximetry 94 L 92 L Intake & Output 12/17/17 12/18/17 12/18/17 18:59 06:59 18:59 Intake Total 3265 / 3265 5010 / 5010 3420 / 3420 Output Total 2450 / 2450 2275 / 2275 120 / 120 Balance 815 / 815 2735 / 2735 3300 / 3300 Intake: IV 3265 / 3265 3010 / 3010 3220 / 3220 D5W/LR Inj 1,000 ML @ 75 mls/hr 1999 1000 / 1000 1000 / 1000 IV.CONT .[id number] [facility] Rx#: [id number] Primacor Inj 20 MG In NS Inj 80 100 / 100 ML @ 0.25 MCG/KG/MIN 5.38 mls/ hr IV.CONT .[id number] [facility] Rx#: [id number] Diprivan 1000 mg/100 ml Inj 1, 100 / 100 100 / 100 100 / 100 000 mg In 100 ml @ 5 MCG/KG/MIN 1.837 mls/hr IV.CONT TITRATE PRN Rx#:[id number] Alburx 5% Inj 500 ML @ 250 mls/ 500 / 500 hr IV.SIG STAT STA Rx#:[id number] Calcium Chloride Inj 2 GM In NS 110 / 110 120 / 120 Inj 100 ML @ 60 mls/hr IV.SIG ONCE ONE Rx#:[id number] Maxipime Inj 2,000 MG In NS Inj 100 / 100 100 / 100 100 ML @ 200 mls/hr IV.SIG Q12H [facility] Rx#:[id number] Cleocin 900 mg/NS Premix 900 mg 50 / 50 100 / 100 In 50 ml @ 100 mls/hr IV.SIG Q8H [facility] Rx#:[id number] LR 1000 mL Inj 1,000 ML @ Wide 1000 / 1000 Open IV.SIG BOLUS ONE Rx#: [id number] Levophed Inj 4 MG In NS Inj 246 250 / 250 250 / 250 250 / 250 ML @ 2 MCG/MIN 7.5 mls/hr IV. SIG TITRATE PRN Rx#:[id number] NS Inj 1,000 ML @ As Directed 1000 / 1000 IV.SIG NOW ONE Rx#:[id number] Vancomycin Inj 1,500 MG In NS 515 / 515 Inj 500 ML @ 250 mls/hr IV.SIG ONCE ONE Rx#:[id number] fentaNYL 10 mcg/mL Premix Drip 250 / 250 250 / 250 2,500 mcg In 250 ml @ 50 MCG/HR 5 mls/hr IV.SIG TITRATE PRN Rx #:[id number] Anesthesia Amount 200 / 200 Other 1999 Output: Urine 100 / 100 1475 / 1475 Estimated Blood Loss 20 / 20 Urine Amount (Catheter) 2149 100 / 100 1 2149 100 / 100 Gastric Drainage 125 / 125 Nasogastric Tube 125 / 125 Wound Vac Amount 75 / 75 800 / 800 Posterior Sacrum 75 / 75 800 / 800 Other: Mode Setting Posterior Sacrum Continuous Intermittent Continuous Other Intake Source Saline Solution Date of Last Bowel Movement 12/17/17 12/17/17 12/18/17 # Bowel Movements 1 # Incontinent Bowel Movements 1 12/15/17 06:30 Blood - Peripheral Aerobic Blood Culture - Preliminary No growth in 3 days 12/15/17 06:30 Blood - Peripheral Anaerobic Blood Culture - Preliminary No growth in 3 days 12/15/17 06:45 Blood - Peripheral Aerobic Blood Culture - Preliminary No growth in 3 days 12/15/17 06:45 Blood - Peripheral Anaerobic Blood Culture - Preliminary No growth in 3 days Lab - Hematology Results 12/17/17 12/18/17 04:16 03:45 WBC 15.1 H 21.7 H RBC 2.63 L 3.39 L Hgb 7.2 L 9.7 L D Hct 21.9 L 27.7 L MCV 83.1 81.6 MCH 27.4 28.5 MCHC 33.0 34.9 RDW 14.9 15.0 Plt Count 165 D 138 L MPV 8.0 7.9 Prelim Diff (Auto) Slide review pending Slide review pending Neut % (Auto) 80.8 H 87.4 H Lymph % (Auto) 16.8 11.1 Isabela % (Auto) 1.7 0.8 Eos % (Auto) 0.3 0.2 Baso % (Auto) 0.4 0.5 Neut # (Auto) 12.2 H 19.0 H Lymph # (Auto) 2.5 2.4 Isabela # (Auto) 0.2 0.2 Eos # (Auto) 0.0 0.0 Baso # (Auto) 0.1 0.1 WBC Differential Manual diff final Manual diff final Seg Neuts % (Manual) 77 H 57 Band Neuts % (Manual) 5 27 H Lymphocytes % (Manual) 15 11 Monocytes % (Manual) 1 Metamyelocytes % (Man) 3 H 3 H Myelocytes % (Man) 1 H Abs Neuts (Manual) 12.8 H 19.1 H Nucleated RBCs/100 WBC 1 H Differential Comment . . Toxic Granulation 1+ H 1+ H Toxic Vacuolation Present H Present H Dohle Bodies Present H Present H Platelet Estimate Normal Low L Platelet Morphology Normal Normal RBC Morphology Normal Normal Lab - Chemistry Results 12/16/17 12/16/17 12/16/17 08:29 12:02 17:36 Sodium Potassium Chloride Carbon Dioxide Anion Gap BUN Creatinine Estimated GFR POC Glucose 271 H 200 H 42 L* Random Glucose Lactic Acid Calcium Prot Corrected Calcium Total Bilirubin AST ALT Alkaline Phosphatase Total Protein Albumin Prealbumin 12/16/17 12/16/17 12/16/17 17:38 17:47 18:00 Sodium Potassium Chloride Carbon Dioxide Anion Gap BUN Creatinine Estimated GFR POC Glucose 40 L* 40 L* Random Glucose 34 L* D Lactic Acid Calcium Prot Corrected Calcium Total Bilirubin AST ALT Alkaline Phosphatase Total Protein Albumin Prealbumin 12/16/17 12/16/17 12/16/17 18:28 21:07 21:38 Sodium Potassium Chloride Carbon Dioxide Anion Gap BUN Creatinine Estimated GFR POC Glucose 135 H 44 L* 139 H Random Glucose Lactic Acid Calcium Prot Corrected Calcium Total Bilirubin AST ALT Alkaline Phosphatase Total Protein Albumin Prealbumin 12/16/17 12/16/17 12/17/17 23:24 23:44 01:56 Sodium Potassium 3.7 Chloride Carbon Dioxide Anion Gap BUN Creatinine Estimated GFR POC Glucose 89 66 L Random Glucose Lactic Acid Calcium Prot Corrected Calcium Total Bilirubin AST ALT Alkaline Phosphatase Total Protein Albumin Prealbumin 12/17/17 12/17/17 12/17/17 02:23 03:44 04:16 Sodium 140 Potassium 3.6 Chloride 110 H Carbon Dioxide 21.5 Anion Gap 9 BUN 26 H Creatinine 1.02 H Estimated GFR 57 L POC Glucose 155 H 122 H Random Glucose 112 H Lactic Acid Calcium 6.4 L* Prot Corrected Calcium 7.4 L* Total Bilirubin 0.6 AST 9 L ALT 8 L Alkaline Phosphatase 260 H Total Protein 5.1 L Albumin 0.8 L Prealbumin 12/17/17 12/17/17 12/17/17 06:22 08:21 10:43 Sodium Potassium Chloride Carbon Dioxide Anion Gap BUN Creatinine Estimated GFR POC Glucose 110 100 120 H Random Glucose Lactic Acid Calcium Prot Corrected Calcium Total Bilirubin AST ALT Alkaline Phosphatase Total Protein Albumin Prealbumin 12/17/17 12/17/17 12/17/17 12:07 14:09 17:17 Sodium Potassium Chloride Carbon Dioxide Anion Gap BUN Creatinine Estimated GFR POC Glucose 136 H 163 H 225 H Random Glucose Lactic Acid Calcium Prot Corrected Calcium Total Bilirubin AST ALT Alkaline Phosphatase Total Protein Albumin Prealbumin 12/17/17 12/17/17 12/17/17 20:31 21:48 22:57 Sodium Potassium Chloride Carbon Dioxide Anion Gap BUN Creatinine Estimated GFR POC Glucose 304 H 263 H 210 H Random Glucose Lactic Acid Calcium Prot Corrected Calcium Total Bilirubin AST ALT Alkaline Phosphatase Total Protein Albumin Prealbumin 12/17/17 12/18/17 12/18/17 23:49 00:50 01:55 Sodium Potassium Chloride Carbon Dioxide Anion Gap BUN Creatinine Estimated GFR POC Glucose 163 H 116 H 102 Random Glucose Lactic Acid Calcium Prot Corrected Calcium Total Bilirubin AST ALT Alkaline Phosphatase Total Protein Albumin Prealbumin 12/18/17 12/18/17 12/18/17 03:14 03:45 03:54 Sodium 140 Potassium 4.1 Chloride 111 H Carbon Dioxide 20.1 L Anion Gap 9 BUN 23 H Creatinine 0.93 Estimated GFR 63 L POC Glucose 90 96 Random Glucose 116 H Lactic Acid Calcium 6.7 L* Prot Corrected Calcium 7.4 L* Total Bilirubin 0.9 AST 26 ALT 8 L Alkaline Phosphatase 288 H Total Protein 5.7 L D Albumin 0.9 L Prealbumin 5 L 12/18/17 12/18/17 12/18/17 04:50 05:37 06:41 Sodium Potassium Chloride Carbon Dioxide Anion Gap BUN Creatinine Estimated GFR POC Glucose 118 H 130 H 139 H Random Glucose Lactic Acid Calcium Prot Corrected Calcium Total Bilirubin AST ALT Alkaline Phosphatase Total Protein Albumin Prealbumin 12/18/17 12/18/17 12/18/17 08:00 08:17 09:08 Sodium Potassium Chloride Carbon Dioxide Anion Gap BUN Creatinine Estimated GFR POC Glucose 125 H 97 Random Glucose Lactic Acid 3.0 H Calcium Prot Corrected Calcium Total Bilirubin AST ALT Alkaline Phosphatase Total Protein Albumin Prealbumin 12/18/17 12/18/17 09:58 11:02 Sodium Potassium Chloride Carbon Dioxide Anion Gap BUN Creatinine Estimated GFR POC Glucose 83 Random Glucose 84 Lactic Acid Calcium Prot Corrected Calcium Total Bilirubin AST ALT Alkaline Phosphatase Total Protein Albumin Prealbumin Imaging: ITS Impressions Femur X-Ray 12/15/17 07:05 CONCLUSION: No fracture is identified. There is extensive soft tissue air in the right gluteal region and extending into the proximal and mid posterior thigh. The soft tissue air suggests an open wound. Pelvis X-Ray 12/15/17 07:05 CONCLUSION: No fracture is identified. However, there is extensive soft tissue air in the left gluteal region and left proximal thigh. Pelvis CT 12/15/17 07:52 CONCLUSION: 1. No fracture is identified. 2. Extensive subcutaneous and soft tissue gas bilaterally, left greater than right. It is most severe in the left gluteal region and extends into the proximal posterior thigh. The soft tissue air dissects through the gluteal musculature. There is adjacent subcutaneous edema. Chest X-Ray 12/17/17 04:00 CONCLUSION: No significant change. Left greater than right parenchymal opacities persist. Physical Exam: PHYSICAL EXAMINATION: GENERAL: Unresponsive. Sedated. HEENT: Unable to assess fully. The sclerae has edema. Oropharynx intubated. NECK: Supple. No adenopathy or swelling. LUNGS: Decreased breath sounds. HEART: irregular S1 and S2. A 1-2/6 systolic murmur at the left sternal border. ABDOMEN: Bowel sounds present, soft. BACK: Surgical wound post debridement across the lower back, buttock and thigh. EXTREMITIES: No clubbing, no cyanosis or edema. Left foot is cold to touch. abrasion with dry necrotic changes at left dorsal toes 2-4. SKIN: No diffuse rash. NEUROLOGIC: Unable to assess. PSYCHIATRIC: Unable to assess. Assessment and Plan - Plan IMPRESSION: 1. Necrotizing fasciitis of the back buttock and thighs. 2. Septic shock. 3. Acute respiratory failure. 4. Chronic kidney disease. RECOMMENDATIONS: 1. Continue vancomycin. 2. Continue clindamycin. 3. Continue cefepime for gram-negative coverage. 4. Monitor cultures.
[2017-12-18] MEDS: Insulin Regular (For Infusion) 100 UNIT in Sodium Chlor 0.9% Inj 99 ML IV.CONT PRN (12:07)
[2017-12-18] MEDS: Vasopressin Inj 40 UNIT in Sodium Chlor 0.9% Inj 98 ML IV.CONT SCH (12:12)
--- NOTE | 2017-12-18 12:34 | MP ---
cc: Ventura Bazzi MD DATE OF OPERATION: 12/18/2017 PREOPERATIVE DIAGNOSES: Necrotizing fasciitis, sepsis. POSTOPERATIVE DIAGNOSES: Necrotizing fasciitis, sepsis; back thigh and buttock area. SURGEON: Ventura Bazzi MD SYSTEM SUPPORT DEVELOPER: None. ANESTHESIA: GETA. FLUIDS: 200 mL ESTIMATED BLOOD LOSS: 20 mL. DRAINS: Hemovac. COMPLICATIONS: None. WOUND CLASSIFICATION: Dirty/contaminated. SPECIMENS: None. FINDINGS: Left thigh area evidence of undrained abscess pocket with necrotic fascia. Good hemostasis. INDICATIONS: The patient is a 52-year-old female who presented with a history of multiple medical issues including sacral decubitus ulcer. The patient presented with necrotizing fasciitis, necessitating emergent operative intervention. The patient is here for planned reexploration, VAC change and washout. DETAILS OF PROCEDURE: The patient was taken to the operating suite, placed in the prone position. She had already been intubated and was becoming more septic in the ICU. A decision was made for reexploration and washout. The VAC was removed, danielle were removed. The patient was prepped and draped in the usual sterile fashion. Brief timeout done, stating correct patient, procedure, and surgical site; we were all in agreement with this. The large defect measuring 45 cm x 15 cm and 1.5 cm deep was noted. The tissue was explored. Some right medial tissue was noted to be somewhat dark and necrotic. A small excisional debridement of soft tissue and skin was done in the area of 4 cm x 4 cm. Further exploration of the gluteus lenny and minimus medius muscles noted that there was some underlying necrotic fascia with abscess and undrained cavity. This was explored. Electro Bovie cautery used; more fascia was excised. Muscle actually noted to be relatively viable and did not necessitate muscle excision. Further hemostasis was obtained and further wound areas were minimally debrided to the necrotic fascia areas. The wound was irrigated thoroughly with saline solution with 2 liters. Next, the VAC sponge was cut to size and a 45 cm x 15 cm and cut to the contours of the wound. Danielle were used to secure the VAC in place. Several long strips of VAC were placed deep to the right lateral tunneling and several small long sponges were placed in between the inner muscular layers of the gluteus on the left. The plastic dressing was placed. Track pad was placed; suction noted no evidence of leak. No complication and all lap counts were correct. The patient was taken intubated critical to ICU. MD PAM Cordova/karyn , 11:58 AM , 12:10 PM
--- NOTE | 2017-12-18 15:44 | ECG ---
Date Performed: 12/17/2017 Time Performed: 15:11:44 PTAGE: 52 years EKG: Normal Sinus rhythm with PAC's Possible anterior infarct - age undetermined Inferior ST-T changes may be due to myocardi al ischemia Generalized low QRS voltages Interprettaion significantly limited by baseline wandering a rtifact with Abnormal ECG PREVIOUS TRACING : 12/15/2017 06.42 DOCTOR: Maurizio Woo Interpretating Date/Time 12/18/2017 16:30:54
--- NOTE | 2017-12-18 19:14 | MB ---
cc: Lily Boucher DPM DATE: 12/18/2017 REASON FOR CONSULTATION: Left foot ischemia. HISTORY OF PRESENT ILLNESS: The patient is a 52-year-old female who was brought into the ED after a fall at home. CT indicated gas and she was followed for necrotizing fasciitis. The patient was seen at bedside this afternoon. She is currently intubated. Medical history was gleaned from her chart. PAST MEDICAL HISTORY: Diabetes, hypertension, hepatitis C, right BKA, decubitus sacral ulceration. ALLERGIES: NKDA. MEDICATIONS: Vancomycin and clindamycin. SOCIAL HISTORY: The patient lives with her . Positive tobacco use. Denies illicit drugs or alcohol. FAMILY HISTORY: Noncontributory. REVIEW OF SYSTEMS: Unable to obtain. PHYSICAL EXAMINATION: Left foot wound with ulceration to the left dorsal hallux, second, third, and fourth digits. The left second is ischemic and purpuric. there is no malodor. It is ulcerated down to the level of the tendon. Lower extremity is cool. The dorsalis pedis is palpable. The PT is mildly diminished. Some forefoot edema without any erythema or streaking. Protective sensation unable to ascertain. IMPRESSION: 1. Left foot ischemic digits with ulceration. 2. Diabetes. 3. Necrotizing fasciitis. RECOMMENDATIONS: At this point in time, continue Betadine dressings daily and then secure with a dry sterile dressing. The patient will need surgical intervention, likely digital amputation, possibly multiple, when she is medically stable for surgery. We will continue to follow the patient while in-house. Lily Boucher DPM SR/deb , 05:29 PM , 05:36 PM
--- NOTE | 2017-12-18 21:36 | XR ---
EXAM DATE: 12/18/2017 8:46 PM EDT AGE/SEX: 52 years / Female INDICATIONS: left foot inflammation. CLINICAL DATA: This is the patient's initial encounter. Patient reports that signs and symptoms have been present for 1 day and indicates a pain score of Nonresponsive. MEDICAL/SURGICAL HISTORY: . Diabetes mellitus type II. Peripheral artery disease. Hepatitis C. Benign hypertension. Smoker. Necrotizing fasciitis. . section. Central line. COMPARISON: [facility] – [place] COMPLETE LEFT 3V, 11/29/2017. . FINDINGS: Remote small avulsion fracture at the fifth toe proximally. No acute fracture or dislocation. Mild os teoarthritis. CONCLUSION: Remote small avulsion fracture at the fifth toe. No acute bony abnormality. Electronically signed by: Ranulfo Escalera MD 12/18/2017 9:34 PM EDT
[2017-12-19] MEDS: Milrinone Inj 20 MG in Sodium Chlor 0.9% Inj 80 ML IV.CONT SCH (01:59)
[2017-12-19] MEDS: Norepinephrine Inj 4 MG in Sodium Chlor 0.9% Inj 246 ML IV.SIG PRN ×2 (01:59→13:36)
[2017-12-19] MEDS: Vasopressin Inj 40 UNIT in Sodium Chlor 0.9% Inj 98 ML IV.CONT SCH ×2 (02:19→18:11)
[2017-12-19] MEDS: Chlorhexidine Gluconate 2% 1 Pack (2 Cloths) TOPICAL SCH (03:04)
[2017-12-19] MEDS: Oral Hygiene Kit OROPHARYNG SCH ×3 (03:04→15:28)
[2017-12-19] MEDS: Clindamycin 900 mg/NS Premix 900 MG/50 ML PIGGYBACK IV.SIG SCH ×3 (03:04→19:56)
[2017-12-19 05:17] LABS: Baso # (Auto) 0.1 th/mm3 (0.0-0.2); Baso % (Auto) 0.6 % (0.0-2.0); Eos # (Auto) 0.1 th/mm3 (0.0-0.4); Eos % (Auto) 0.6 % (0.0-4.0); Hematocrit 22.1 % (35.0-46.0); Hemoglobin 7.5 gm/dL (11.6-15.3); Lymph # (Auto) 3.4 th/mm3 (1.0-4.8); Lymph % (Auto) 17.5 % (9.0-44.0); Mean Corpuscular Hemoglobin 28.3 pg (27.0-34.0); Mean Corpuscular Volume 83.3 fL (80.0-100.0); Mean Platelet Volume 8.1 fL (7.0-11.0); Mono # (Auto) 0.2 th/mm3 (0.0-0.9); Mono % (Auto) 1.1 % (0.0-8.0); Neut # (Auto) 15.8 th/mm3 (1.8-7.7); Neut % (Auto) 80.2 % (16.0-70.0); Platelet Count 102 th/mm3 (150-450); Red Blood Count 2.65 mil/mm3 (4.00-5.30); Red Cell Distribution Width 15.1 % (11.6-17.2); White Blood Count 19.7 th/mm3 (4.0-11.0)
[2017-12-19 05:54] LABS: Albumin 1.2 g/dL (3.4-5.0); Calcium 7.4 mg/dL (8.5-10.1); Potassium 3.6 meq/L (3.5-5.1); Total Protein 5.4 g/dL (6.4-8.2); Vancomycin,Random 13.8 Comment
[2017-12-19 07:34] LABS: Lymphocytes 16 % (9-44); Monocytes 3 % (0-8); Myelocytes 1 % (0-0); Promyelocyte 1 % (0-0)
[2017-12-19 07:35] LABS: Dohle Bodies Present; Platelet Morphology Normal (Normal); Toxic Granulation 1+; Toxic Vacuolation Present
[2017-12-19] MEDS: Famotidine PF Inj 20 MG/2 ML Vial IV.PUSH SCH ×2 (08:08→20:06)
[2017-12-19] MEDS: Senna/Docusate Sodium 8.6/50 MG Tablet PO SCH ×2 (08:08→20:05)
[2017-12-19] MEDS: Propofol 1000 mg/100 ml Inj 1,000 MG/100 ML BOTTLE IV.CONT PRN ×2 (08:11→18:12)
[2017-12-19] MEDS: Chlorhexidine 0.12% Oral Kit 15 ML UDC OROPHARYNG SCH ×2 (08:14→19:58)
[2017-12-19] MEDS: Beneprotein Powder Packet G-TUBE SCH (08:15)
[2017-12-19] MEDS: Mupirocin 2% Nasal Oint Topical Syringe EACH NARE SCH ×2 (08:59→20:05)
--- NOTE | 2017-12-19 10:09 | P.PNGS ---
Subjective Patient reports: still having pain (intubated sedates vac good sxn, less pressors ) Physical Exam Vital signs: Vital Signs 12/18/17 10:50 12/18/17 12:00 12/18/17 15:19 Temperature 97.3 F L Pulse Rate 86 Respiratory Rate 22 20 22 Pulse Oximetry 92 L 92 L 94 L 12/18/17 16:00 12/18/17 20:00 12/18/17 20:15 Temperature 95 F L 97.5 F L Pulse Rate 90 80 Respiratory Rate 22 22 22 Pulse Oximetry 94 L 93 L 93 L 12/19/17 00:00 12/19/17 00:30 12/19/17 04:00 Temperature 99.1 F 98.6 F Pulse Rate 89 100 H Respiratory Rate 22 22 22 Pulse Oximetry 99 99 98 12/19/17 04:22 12/19/17 07:00 12/19/17 07:15 Temperature 98.6 F 98.6 F Pulse Rate 107 H 108 H Respiratory Rate 22 22 22 Pulse Oximetry 96 95 95 12/19/17 07:30 12/19/17 07:45 12/19/17 08:00 Temperature 98.6 F 98.6 F 98.8 F Pulse Rate 111 H 106 H 103 H Respiratory Rate 22 22 22 Pulse Oximetry 95 95 94 L 12/19/17 08:07 12/19/17 08:15 12/19/17 08:30 Temperature 98.6 F 98.6 F Pulse Rate 103 H 104 H Respiratory Rate 22 22 22 Pulse Oximetry 94 L 94 L 96 12/19/17 08:34 12/19/17 09:00 Temperature Pulse Rate 105 H 105 H Respiratory Rate 22 Pulse Oximetry Intake & Output 12/18/17 12/19/17 12/19/17 18:59 06:59 18:59 Intake Total 4997 / 4997 1090 / 1090 100 / 100 Output Total 2820 / 2820 2850 / 2850 Balance 2177 / 2177 -1760 / -1760 100 / 100 Weight 82.4 kg Intake: IV 4797 / 4797 1090 / 1090 100 / 100 D5W/LR Inj 1,000 ML @ 75 mls/hr 1657 / 1657 543 / 543 IV.CONT .[id number] [facility] Rx#: [id number] NovoLIN R (IV Infusion) 100 56 / 56 UNIT In NS Inj 99 ML @ Per Protocol IV.CONT TITRATE PRN Rx #:[id number] Primacor Inj 20 MG In NS Inj 80 160 / 160 40 / 40 ML @ 0.25 MCG/KG/MIN 5.38 mls/ hr IV.CONT .[id number] [facility] Rx#: [id number] Diprivan 1000 mg/100 ml Inj 1, 148 / 148 52 / 52 100 / 100 000 mg In 100 ml @ 5 MCG/KG/MIN 1.837 mls/hr IV.CONT TITRATE PRN Rx#:[id number] Pitressin Inj 40 UNIT In NS Inj 135 / 135 65 / 65 98 ML @ 0.04 UNITS/MIN 6 mls/ hr IV.CONT CONT RICARDO Rx#: [id number] Alburx 5% Inj 500 ML @ 250 mls/ 500 / 500 hr IV.SIG STAT STA Rx#:[id number] Calcium Chloride Inj 2 GM In NS 120 / 120 Inj 100 ML @ 60 mls/hr IV.SIG ONCE ONE Rx#:[id number] Maxipime Inj 2,000 MG In NS Inj 100 / 100 100 / 100 100 ML @ 200 mls/hr IV.SIG Q12H [facility] Rx#:[id number] Cleocin 900 mg/NS Premix 900 mg 50 / 50 100 / 100 In 50 ml @ 100 mls/hr IV.SIG Q8H [facility] Rx#:[id number] LR 1000 mL Inj 1,000 ML @ Wide 1000 / 1000 Open IV.SIG BOLUS ONE Rx#: [id number] Levophed Inj 4 MG In NS Inj 246 560 / 560 190 / 190 ML @ 2 MCG/MIN 7.5 mls/hr IV. SIG TITRATE PRN Rx#:[id number] fentaNYL 10 mcg/mL Premix Drip 311 / 311 2,500 mcg In 250 ml @ 50 MCG/HR 5 mls/hr IV.SIG TITRATE PRN Rx #:[id number] Anesthesia Amount 200 / 200 Output: Estimated Blood Loss 20 / 20 Urine Amount (Catheter) 1650 / 1650 1900 / 1900 1 1650 / 1650 1900 / 1900 Gastric Drainage 50 / 50 0 / 0 Nasogastric Tube 50 / 50 0 / 0 Wound Vac Amount 1100 / 1100 950 / 950 Posterior Sacrum 1100 / 1100 950 / 950 Other: Mode Setting Posterior Sacrum Continuous Continuous Continuous Date of Last Bowel Movement 12/18/17 12/18/17 12/18/17 # Bowel Movements 0 - Routine Abdominal Exam Present: soft - Routine Exam Comments: vac good seal - Urinary Catheter Management 1 Cath placed during this visit: yes Reason for continuing: Severe pressure ulcer/wound Insertion date: 12/15/17 Results - Labs 12/19/17 05:00 12/19/17 05:00 Laboratory Results - last 24 hr 12/15/17 12/18/17 12/18/17 16:51 09:58 11:02 WBC RBC Hgb Hct MCV MCH MCHC RDW Plt Count MPV Prelim Diff (Auto) Neut % (Auto) Lymph % (Auto) [place] % (Auto) Eos % (Auto) Baso % (Auto) Neut # (Auto) Lymph # (Auto) [place] # (Auto) Eos # (Auto) Baso # (Auto) WBC Differential Seg Neuts % (Manual) Band Neuts % (Manual) Lymphocytes % (Manual) Monocytes % (Manual) Myelocytes % (Man) Promyelocytes % (Man) Abs Neuts (Manual) Differential Comment Toxic Granulation Toxic Vacuolation Dohle Bodies Platelet Estimate Platelet Morphology Sodium Potassium Chloride Carbon Dioxide Anion Gap BUN Creatinine Estimated GFR POC Glucose 83 Random Glucose 84 Lactic Acid Calcium Prot Corrected Calcium Total Bilirubin AST ALT Alkaline Phosphatase Total Protein Albumin Random Vancomycin MTS Gel Crossmatch See Detail Bld Prod Order Comment 12/18/17 12/18/17 12/18/17 12:11 13:07 13:38 WBC RBC Hgb Hct MCV MCH MCHC RDW Plt Count MPV Prelim Diff (Auto) Neut % (Auto) Lymph % (Auto) [place] % (Auto) Eos % (Auto) Baso % (Auto) Neut # (Auto) Lymph # (Auto) [place] # (Auto) Eos # (Auto) Baso # (Auto) WBC Differential Seg Neuts % (Manual) Band Neuts % (Manual) Lymphocytes % (Manual) Monocytes % (Manual) Myelocytes % (Man) Promyelocytes % (Man) Abs Neuts (Manual) Differential Comment Toxic Granulation Toxic Vacuolation Dohle Bodies Platelet Estimate Platelet Morphology Sodium Potassium Chloride Carbon Dioxide Anion Gap BUN Creatinine Estimated GFR POC Glucose 84 85 109 Random Glucose Lactic Acid Calcium Prot Corrected Calcium Total Bilirubin AST ALT Alkaline Phosphatase Total Protein Albumin Random Vancomycin MTS Gel Crossmatch Bld Prod Order Comment 12/18/17 12/18/17 12/18/17 13:44 15:04 16:02 WBC RBC Hgb Hct MCV MCH MCHC RDW Plt Count MPV Prelim Diff (Auto) Neut % (Auto) Lymph % (Auto) [place] % (Auto) Eos % (Auto) Baso % (Auto) Neut # (Auto) Lymph # (Auto) [place] # (Auto) Eos # (Auto) Baso # (Auto) WBC Differential Seg Neuts % (Manual) Band Neuts % (Manual) Lymphocytes % (Manual) Monocytes % (Manual) Myelocytes % (Man) Promyelocytes % (Man) Abs Neuts (Manual) Differential Comment Toxic Granulation Toxic Vacuolation Dohle Bodies Platelet Estimate Platelet Morphology Sodium Potassium Chloride Carbon Dioxide Anion Gap BUN Creatinine Estimated GFR POC Glucose 138 H 156 H Random Glucose Lactic Acid 1.0 Calcium Prot Corrected Calcium Total Bilirubin AST ALT Alkaline Phosphatase Total Protein Albumin Random Vancomycin MTS Gel Crossmatch Bld Prod Order Comment 12/18/17 12/18/17 12/18/17 16:58 17:59 19:04 WBC RBC Hgb Hct MCV MCH MCHC RDW Plt Count MPV Prelim Diff (Auto) Neut % (Auto) Lymph % (Auto) [place] % (Auto) Eos % (Auto) Baso % (Auto) Neut # (Auto) Lymph # (Auto) [place] # (Auto) Eos # (Auto) Baso # (Auto) WBC Differential Seg Neuts % (Manual) Band Neuts % (Manual) Lymphocytes % (Manual) Monocytes % (Manual) Myelocytes % (Man) Promyelocytes % (Man) Abs Neuts (Manual) Differential Comment Toxic Granulation Toxic Vacuolation Dohle Bodies Platelet Estimate Platelet Morphology Sodium Potassium Chloride Carbon Dioxide Anion Gap BUN Creatinine Estimated GFR POC Glucose 173 H 154 H 139 H Random Glucose Lactic Acid Calcium Prot Corrected Calcium Total Bilirubin AST ALT Alkaline Phosphatase Total Protein Albumin Random Vancomycin MTS Gel Crossmatch Bld Prod Order Comment 12/18/17 12/18/17 12/18/17 20:19 21:13 22:06 WBC RBC Hgb Hct MCV MCH MCHC RDW Plt Count MPV Prelim Diff (Auto) Neut % (Auto) Lymph % (Auto) [place] % (Auto) Eos % (Auto) Baso % (Auto) Neut # (Auto) Lymph # (Auto) [place] # (Auto) Eos # (Auto) Baso # (Auto) WBC Differential Seg Neuts % (Manual) Band Neuts % (Manual) Lymphocytes % (Manual) Monocytes % (Manual) Myelocytes % (Man) Promyelocytes % (Man) Abs Neuts (Manual) Differential Comment Toxic Granulation Toxic Vacuolation Dohle Bodies Platelet Estimate Platelet Morphology Sodium Potassium Chloride Carbon Dioxide Anion Gap BUN Creatinine Estimated GFR POC Glucose 118 H 113 H 119 H Random Glucose Lactic Acid Calcium Prot Corrected Calcium Total Bilirubin AST ALT Alkaline Phosphatase Total Protein Albumin Random Vancomycin MTS Gel Crossmatch Bld Prod Order Comment 12/18/17 12/19/17 12/19/17 23:05 00:04 01:32 WBC RBC Hgb Hct MCV MCH MCHC RDW Plt Count MPV Prelim Diff (Auto) Neut % (Auto) Lymph % (Auto) [place] % (Auto) Eos % (Auto) Baso % (Auto) Neut # (Auto) Lymph # (Auto) [place] # (Auto) Eos # (Auto) Baso # (Auto) WBC Differential Seg Neuts % (Manual) Band Neuts % (Manual) Lymphocytes % (Manual) Monocytes % (Manual) Myelocytes % (Man) Promyelocytes % (Man) Abs Neuts (Manual) Differential Comment Toxic Granulation Toxic Vacuolation Dohle Bodies Platelet Estimate Platelet Morphology Sodium Potassium Chloride Carbon Dioxide Anion Gap BUN Creatinine Estimated GFR POC Glucose 112 H 104 132 H Random Glucose Lactic Acid Calcium Prot Corrected Calcium Total Bilirubin AST ALT Alkaline Phosphatase Total Protein Albumin Random Vancomycin MTS Gel Crossmatch Bld Prod Order Comment 12/19/17 12/19/17 12/19/17 02:07 03:09 04:05 WBC RBC Hgb Hct MCV MCH MCHC RDW Plt Count MPV Prelim Diff (Auto) Neut % (Auto) Lymph % (Auto) [place] % (Auto) Eos % (Auto) Baso % (Auto) Neut # (Auto) Lymph # (Auto) [place] # (Auto) Eos # (Auto) Baso # (Auto) WBC Differential Seg Neuts % (Manual) Band Neuts % (Manual) Lymphocytes % (Manual) Monocytes % (Manual) Myelocytes % (Man) Promyelocytes % (Man) Abs Neuts (Manual) Differential Comment Toxic Granulation Toxic Vacuolation Dohle Bodies Platelet Estimate Platelet Morphology Sodium Potassium Chloride Carbon Dioxide Anion Gap BUN Creatinine Estimated GFR POC Glucose 133 H 146 H 113 H Random Glucose Lactic Acid Calcium Prot Corrected Calcium Total Bilirubin AST ALT Alkaline Phosphatase Total Protein Albumin Random Vancomycin MTS Gel Crossmatch Bld Prod Order Comment 12/19/17 12/19/17 12/19/17 05:00 05:00 05:02 WBC 19.7 H RBC 2.65 L Hgb 7.5 L D Hct 22.1 L MCV 83.3 MCH 28.3 MCHC 34.0 RDW 15.1 Plt Count 102 L MPV 8.1 Prelim Diff (Auto) Slide review pending Neut % (Auto) 80.2 H Lymph % (Auto) 17.5 [place] % (Auto) 1.1 Eos % (Auto) 0.6 Baso % (Auto) 0.6 Neut # (Auto) 15.8 H Lymph # (Auto) 3.4 [place] # (Auto) 0.2 Eos # (Auto) 0.1 Baso # (Auto) 0.1 WBC Differential Manual diff final Seg Neuts % (Manual) 74 H Band Neuts % (Manual) 5 Lymphocytes % (Manual) 16 Monocytes % (Manual) 3 Myelocytes % (Man) 1 H Promyelocytes % (Man) 1 H Abs Neuts (Manual) 16.0 H Differential Comment . Toxic Granulation 1+ H Toxic Vacuolation Present H Dohle Bodies Present H Platelet Estimate Low L Platelet Morphology Normal Sodium 139 Potassium 3.6 Chloride 110 H Carbon Dioxide 19.0 L Anion Gap 10 BUN 22 H Creatinine 1.01 H Estimated GFR 57 L POC Glucose 96 Random Glucose 98 Lactic Acid Calcium 7.4 L* Prot Corrected Calcium 8.3 L D Total Bilirubin 0.8 AST 20 ALT 6 L Alkaline Phosphatase 252 H Total Protein 5.4 L Albumin 1.2 L Random Vancomycin 13.8 MTS Gel Crossmatch Bld Prod Order Comment 12/19/17 12/19/17 12/19/17 06:00 06:53 08:20 WBC RBC Hgb Hct MCV MCH MCHC RDW Plt Count MPV Prelim Diff (Auto) Neut % (Auto) Lymph % (Auto) [place] % (Auto) Eos % (Auto) Baso % (Auto) Neut # (Auto) Lymph # (Auto) [place] # (Auto) Eos # (Auto) Baso # (Auto) WBC Differential Seg Neuts % (Manual) Band Neuts % (Manual) Lymphocytes % (Manual) Monocytes % (Manual) Myelocytes % (Man) Promyelocytes % (Man) Abs Neuts (Manual) Differential Comment Toxic Granulation Toxic Vacuolation Dohle Bodies Platelet Estimate Platelet Morphology Sodium Potassium Chloride Carbon Dioxide Anion Gap BUN Creatinine Estimated GFR POC Glucose 113 H 117 H 131 H Random Glucose Lactic Acid Calcium Prot Corrected Calcium Total Bilirubin AST ALT Alkaline Phosphatase Total Protein Albumin Random Vancomycin MTS Gel Crossmatch Bld Prod Order Comment 12/19/17 09:11 WBC RBC Hgb Hct MCV MCH MCHC RDW Plt Count MPV Prelim Diff (Auto) Neut % (Auto) Lymph % (Auto) [place] % (Auto) Eos % (Auto) Baso % (Auto) Neut # (Auto) Lymph # (Auto) [place] # (Auto) Eos # (Auto) Baso # (Auto) WBC Differential Seg Neuts % (Manual) Band Neuts % (Manual) Lymphocytes % (Manual) Monocytes % (Manual) Myelocytes % (Man) Promyelocytes % (Man) Abs Neuts (Manual) Differential Comment Toxic Granulation Toxic Vacuolation Dohle Bodies Platelet Estimate Platelet Morphology Sodium Potassium Chloride Carbon Dioxide Anion Gap BUN Creatinine Estimated GFR POC Glucose 119 H Random Glucose Lactic Acid Calcium Prot Corrected Calcium Total Bilirubin AST ALT Alkaline Phosphatase Total Protein Albumin Random Vancomycin MTS Gel Crossmatch Bld Prod Order Comment - Imaging Imaging: ITS Impressions Femur X-Ray 12/15/17 07:05 CONCLUSION: No fracture is identified. There is extensive soft tissue air in the right gluteal region and extending into the proximal and mid posterior thigh. The soft tissue air suggests an open wound. Pelvis X-Ray 12/15/17 07:05 CONCLUSION: No fracture is identified. However, there is extensive soft tissue air in the left gluteal region and left proximal thigh. Pelvis CT 12/15/17 07:52 CONCLUSION: 1. No fracture is identified. 2. Extensive subcutaneous and soft tissue gas bilaterally, left greater than right. It is most severe in the left gluteal region and extends into the proximal posterior thigh. The soft tissue air dissects through the gluteal musculature. There is adjacent subcutaneous edema. Chest X-Ray 12/17/17 04:00 CONCLUSION: No significant change. Left greater than right parenchymal opacities persist. Foot X-Ray 12/18/17 00:00 CONCLUSION: Remote small avulsion fracture at the fifth toe. No acute bony abnormality. Assessment and Plan - Assessment (1) Necrotizing fasciitis of pelvic region and thigh Code(s): M72.6 - Necrotizing fasciitis Status: Acute Plan: 52yo female with multiple medical comorbidities, s/p debridement of nec fasc critically ill VAC change sunday recommend transfuse prbc for anemia of blood loss current 7
[2017-12-19] MEDS: fentaNYL 10 mcg/mL Premix Drip 2,500 MCG/250 ML BAG IV.SIG PRN (10:54)
[2017-12-19] MEDS: Dextrose 5%/Lactated Ringer's 1,000 ML IV.CONT SCH (10:55)
[2017-12-19] MEDS: Vancomycin Inj 1,500 MG in Sodium Chlor 0.9% Inj 500 ML IV.SIG SCH (11:10)
--- NOTE | 2017-12-19 11:35 | P.PNCC ---
Subjective Subjective Remarks/Hospital Course: This 52-year-old woman with long-standing uncontrolled diabetes mellitus and severe peripheral arterial disease related to a long-term heavy smoking history was found down at her home and initial blood glucose was 610. Her lower back and buttocks was exquisitely tender and a mid line stage IV sacral decubitus was oozing purulent material and inflamed and the surrounding soft tissue. White count was not elevated but 90% neutrophils. Temperature 97 degrees. Moderately encephalopathic though conversant. X-rays revealed no fractures in the pelvis but CAT scan demonstrated extensive subcutaneous air emanating in both directions left and right from the mid sacral region. This is clearly necrotizing fasciitis or some other gas-forming infection and the woman is critically ill. She received vancomycin, Zosyn, and clindamycin antibiotic therapy as quickly as possible and was transferred to the ICU for ongoing resuscitation. Because of worsening hemodynamic stability she required intubation and mechanical ventilation followed by central line placement on arrival to the ICU. Insulin drip infusion was started in the emergency department and glucose had declined into the low 400s. She was not in ketoacidosis but lactic acid was elevated at 3.1. General surgery and orthopedic surgery were consulted for recommendations and it was felt that this woman was too unstable to tolerate an operative procedure immediately. We continue her ongoing resuscitation and trial in the ICU at this stage. 12/16: Following aggressive resuscitation yesterday for the treatment of severe hyperglycemia, septic shock, respiratory failure, metabolic acidosis, acute kidney injury, the patient went to the operating room with an extensive wide debridement bilateral gluteal and left thigh soft tissue and muscle. Primary antibiotic coverage at this point is vancomycin, cefepime, clindamycin. The patient started to make urine late yesterday afternoon and has continued to acceptable output since. Lactic acidosis is 2.0 this morning but metabolic acidosis persists despite bicarb drip. She remains on vasopressor support and hemodynamically unstable. 12/17: s/p debridement of large nec fasc wound. remains in shock today. also very hypoglycemic requiring multiple D50 amps overnight. 12/18: back in worsening shock. vasopressor support higher. required 2L crystalloid overnight and additional 1L and 500cc albumin today. ivc completely flat on bedside echo. LVEF hyperdynamic. no pericardial effusion. spoken with gen surg. plan to go back early to eval for worsening necrosis. fio2 also up to 100% and peep 10- hypoxic, likely early ARDS. 12/19: clinically doing better. still in shock on vasopressors, but requirements are lower and lactate cleared. Cr slowly uptrending. SVV still 19% today and appears to be volume responsive. gen surgery ordered 2 units prbc for falling hgb in the setting of blood loss with surgical intervention yesterday. fio2 improving. glycemic control also improving. Objective Vital Signs / I&O: Vital Signs 12/18/17 12:00 12/18/17 15:19 12/18/17 16:00 Temperature 36.3 C L 35 C L Pulse Rate 86 90 Respiratory Rate 20 22 22 Pulse Oximetry 92 L 94 L 94 L 12/18/17 20:00 12/18/17 20:15 12/19/17 00:00 Temperature 36.4 C L 37.3 C Pulse Rate 80 89 Respiratory Rate 22 22 22 Pulse Oximetry 93 L 93 L 99 12/19/17 00:30 12/19/17 04:00 12/19/17 04:22 Temperature 37.0 C Pulse Rate 100 H Respiratory Rate 22 22 22 Pulse Oximetry 99 98 96 12/19/17 07:00 12/19/17 07:15 12/19/17 07:30 Temperature 37.0 C 37.0 C 37.0 C Pulse Rate 107 H 108 H 111 H Respiratory Rate 22 22 22 Pulse Oximetry 95 95 95 12/19/17 07:45 12/19/17 08:00 12/19/17 08:07 Temperature 37.0 C 37.1 C Pulse Rate 106 H 103 H Respiratory Rate 22 22 22 Pulse Oximetry 95 94 L 94 L 12/19/17 08:15 12/19/17 08:30 12/19/17 08:34 Temperature 37.0 C 37.0 C Pulse Rate 103 H 104 H 105 H Respiratory Rate 22 22 22 Pulse Oximetry 94 L 96 12/19/17 09:00 Temperature Pulse Rate 105 H Respiratory Rate Pulse Oximetry Intake & Output 12/18/17 12/19/17 12/19/17 18:59 06:59 18:59 Intake Total 4997 / 4997 1090 / 1090 1156.3 / 1156.3 Output Total 2820 / 2820 2850 / 2850 Balance 2177 / 2177 -1760 / -1760 1156.3 / 1156.3 Weight 82.4 kg Intake: IV 4797 / 4797 1090 / 1090 1156.3 / 1156.3 D5W/LR Inj 1,000 ML @ 75 mls/hr 1657 / 1657 543 / 543 850 / 850 IV.CONT .[id number] RICARDO Rx#: [id number] NovoLIN R (IV Infusion) 100 56 / 56 17.3 / 17.3 UNIT In NS Inj 99 ML @ Per Protocol IV.CONT TITRATE PRN Rx #:[id number] Primacor Inj 20 MG In NS Inj 80 160 / 160 40 / 40 ML @ 0.25 MCG/KG/MIN 5.38 mls/ hr IV.CONT .[id number] RICARDO Rx#: [id number] Diprivan 1000 mg/100 ml Inj 1, 148 / 148 52 / 52 100 / 100 000 mg In 100 ml @ 5 MCG/KG/MIN 1.837 mls/hr IV.CONT TITRATE PRN Rx#:[id number] Pitressin Inj 40 UNIT In NS Inj 135 / 135 65 / 65 98 ML @ 0.04 UNITS/MIN 6 mls/ hr IV.CONT CONT RICARDO Rx#: [id number] Alburx 5% Inj 500 ML @ 250 mls/ 500 / 500 hr IV.SIG STAT STA Rx#:[id number] Calcium Chloride Inj 2 GM In NS 120 / 120 Inj 100 ML @ 60 mls/hr IV.SIG ONCE ONE Rx#:[id number] Maxipime Inj 2,000 MG In NS Inj 100 / 100 100 / 100 100 ML @ 200 mls/hr IV.SIG Q12H RICARDO Rx#:[id number] Cleocin 900 mg/NS Premix 900 mg 50 / 50 100 / 100 In 50 ml @ 100 mls/hr IV.SIG Q8H RICARDO Rx#:[id number] LR 1000 mL Inj 1,000 ML @ Wide 1000 / 1000 Open IV.SIG BOLUS ONE Rx#: [id number] Levophed Inj 4 MG In NS Inj 246 560 / 560 190 / 190 ML @ 2 MCG/MIN 7.5 mls/hr IV. SIG TITRATE PRN Rx#:[id number] fentaNYL 10 mcg/mL Premix Drip 311 / 311 189 / 189 2,500 mcg In 250 ml @ 50 MCG/HR 5 mls/hr IV.SIG TITRATE PRN Rx #:[id number] Anesthesia Amount 200 / 200 Output: Estimated Blood Loss 20 / 20 Urine Amount (Catheter) 1650 / 1650 1900 / 1900 1 1650 / 1650 1900 / 1900 Gastric Drainage 50 / 50 0 / 0 Nasogastric Tube 50 / 50 0 / 0 Wound Vac Amount 1100 / 1100 950 / 950 Posterior Sacrum 1100 / 1100 950 / 950 Other: Mode Setting Posterior Sacrum Continuous Continuous Continuous Date of Last Bowel Movement 12/18/17 12/18/17 12/18/17 # Bowel Movements 0 Result Diagrams: 12/19/17 05:00 12/19/17 05:00 Objective Remarks: General: Ill-appearing middle-aged woman, intubated and sedated Head: Atraumatic, normal, edentulous Neck: Supple, orotracheal intubation Lungs: equal chest rise. prvc. fio2 50%. peep 12. Heart: tachycardic rate and regular rhythm. no JVD. Abdomen: Soft, no guarding, no peritoneal irritation. Back: Wound VAC in place over lower lumbar region there is a moderate erythema to the skin over the pelvis and buttocks. Midline sacral stage IV decubitus has been debrided. Extremities: Tepid, adequately perfused, status post below-knee amputation right side, necrotic ulceration over several toes left foot Neurological: Intubated and sedated she moves 4 limbs to stimulation. Pupils responsive. Cough, gag intact. Assessment and Plan - Problem List (1) Septic shock with acute organ dysfunction due to anaerobic bacteria Code(s): A41.4 - Sepsis due to anaerobes; R65.21 - Severe sepsis with septic shock Status: Acute (2) Acute respiratory failure Code(s): J96.00 - Acute respiratory failure, unspecified whether with hypoxia or hypercapnia Status: Acute (3) Necrotizing fasciitis Code(s): M72.6 - Necrotizing fasciitis Status: Acute (4) Type 2 diabetes mellitus with hyperosmolar nonketotic hyperglycemia Code(s): E11.01 - Type 2 diabetes mellitus with hyperosmolarity with coma Status: Acute (5) MARIO (acute kidney injury) Code(s): N17.9 - Acute kidney failure, unspecified Status: Acute (6) Lactic acidosis Code(s): E87.2 - Acidosis Status: Acute - Assessment and Plan Plan: Assessment: 52yF with large necrotizing soft tissue infection of the lower back and sacrum complicated by septic shock and multiorgan dysfunction. Continued vasopressors, ivf, and antibiotics. plan for re-evaluation surgically on Sunday. remains critically ill in ongoing shock. Plan: Neurological Acute metabolic encephalopathy -Sedation with propofol -Analgesia with fentanyl -Encephalopathy largely due to sepsis and hyperglycemia - RASS goal -2. Cardiovascular Septic Shock- persistent Myocardial dysfunction secondary to septic shock -levophed, vasopresin for goal map > 65 mmHg. - d/c milrinone today. Flowtrack suggesting CI > 3.5. if she needs additional inotropic therapy may benefit from epinephrine or dobutamine. -2 units of prbc for ongoing blood loss and anemia will help with intravascular volume expansion as well. -Follow acid-base balance closely Respiratory Acute hypoxic and hypercarbic respiratory failure- persistent -Intubation and mechanical ventilation -Bronchodilators - HOB elevated - vent bundle - wean fio2 for goal spo2 > 90% - leave PEEP at 12. - no weaning of mechanical ventilation until shock improves Endocrinology Diabetes Severe hypoglycemia - hold levemir - transition from insulin drip to q4h med scale SSI. Hematology/Infectious Disease Septic Shock Necrotizing soft tissue infection -Obvious infection. -Follow white count and platelet count closely - abx per ID. continue clindamycin until third debridement rules out further extension of necrosis. (second debridement revealed ongoing necrosis) - daily cbc GI Acute protein calorie malnutrition- severe - NPO while in shock - NG tube to LIWS - prealbumin 5 on 12/18. severely malnourished. - daily bmp, mg, phos Acute kidney injury -Tristan required for hourly urine output -High risk for further deterioration in renal function -Needs Tristan at this time to protect perineal region, removed shortly. Prophylaxis -Pepcid for GI ulcer prophylaxis -SCDs for DVT prophylaxis -Hold chemical DVT prophylaxis until surgical decisions are made Lines: Left subclavian central venous line placed 12/15 Overall impression: This woman is critically ill and in septic shock with necrotizing fasciitis emanating from a deep chronic sacral decubitus. remains quite unstable with persistent ivf resuscitative requirement. remains in shock and off pathway. Critical care time 50 minutes aside from invasive procedures.
--- NOTE | 2017-12-19 11:46 | P.PNID ---
Subjective Remarks: Discussed with RN. Sedated. On the ventilator. eyes open. Currently on 4 mcg of Levophed. Blood culture has no growth. Afebrile. WBC remain elevated. Plans for vac change in 2 days. Post debridement 01/18/2018. This is a 52-year-old white female who was brought to the emergency department after she fell at home. The patient was noted to have profound weakness. She was evaluated in the emergency department and at that time had normal temperature and white blood cell count was also normal. She underwent CT scan of the abdomen and pelvis that showed extensive subcutaneous and soft tissue gas bilaterally with the left greater than right, most severe in the left gluteal region and extending into the proximal posterior thigh soft tissue and air-fluid dissecting through the gluteal musculature. The patient has a history of diabetes mellitus. Antibiotics: Clindamycin. Vancomycin Cefepime. Allergies/Adverse Reactions: Allergies No Known Allergies Allergy (Verified 12/15/17 07:54) Objective Vital Signs 12/18/17 12:00 12/18/17 15:19 12/18/17 16:00 Temperature 97.3 F L 95 F L Pulse Rate 86 90 Respiratory Rate 20 22 22 Pulse Oximetry 92 L 94 L 94 L 12/18/17 20:00 12/18/17 20:15 12/19/17 00:00 Temperature 97.5 F L 99.1 F Pulse Rate 80 89 Respiratory Rate 22 22 22 Pulse Oximetry 93 L 93 L 99 12/19/17 00:30 12/19/17 04:00 12/19/17 04:22 Temperature 98.6 F Pulse Rate 100 H Respiratory Rate 22 22 22 Pulse Oximetry 99 98 96 12/19/17 07:00 12/19/17 07:15 12/19/17 07:30 Temperature 98.6 F 98.6 F 98.6 F Pulse Rate 107 H 108 H 111 H Respiratory Rate 22 22 22 Pulse Oximetry 95 95 95 12/19/17 07:45 12/19/17 08:00 12/19/17 08:07 Temperature 98.6 F 98.8 F Pulse Rate 106 H 103 H Respiratory Rate 22 22 22 Pulse Oximetry 95 94 L 94 L 12/19/17 08:15 12/19/17 08:30 12/19/17 08:34 Temperature 98.6 F 98.6 F Pulse Rate 103 H 104 H 105 H Respiratory Rate 22 22 22 Pulse Oximetry 94 L 96 12/19/17 09:00 Temperature Pulse Rate 105 H Respiratory Rate Pulse Oximetry Intake & Output 12/18/17 12/19/17 12/19/17 18:59 06:59 18:59 Intake Total 4997 / 4997 1090 / 1090 1156.3 / 1156.3 Output Total 2820 / 2820 2850 / 2850 Balance 2177 / 2177 -1760 / -1760 1156.3 / 1156.3 Weight 82.4 kg Intake: IV 4797 / 4797 1090 / 1090 1156.3 / 1156.3 D5W/LR Inj 1,000 ML @ 75 mls/hr 1657 / 1657 543 / 543 850 / 850 IV.CONT .[id number] RICARDO Rx#: [id number] NovoLIN R (IV Infusion) 100 56 / 56 17.3 / 17.3 UNIT In NS Inj 99 ML @ Per Protocol IV.CONT TITRATE PRN Rx #:[id number] Primacor Inj 20 MG In NS Inj 80 160 / 160 40 / 40 ML @ 0.25 MCG/KG/MIN 5.38 mls/ hr IV.CONT .[id number] RICARDO Rx#: [id number] Diprivan 1000 mg/100 ml Inj 1, 148 / 148 52 / 52 100 / 100 000 mg In 100 ml @ 5 MCG/KG/MIN 1.837 mls/hr IV.CONT TITRATE PRN Rx#:[id number] Pitressin Inj 40 UNIT In NS Inj 135 / 135 65 / 65 98 ML @ 0.04 UNITS/MIN 6 mls/ hr IV.CONT CONT RICARDO Rx#: [id number] Alburx 5% Inj 500 ML @ 250 mls/ 500 / 500 hr IV.SIG STAT STA Rx#:[id number] Calcium Chloride Inj 2 GM In NS 120 / 120 Inj 100 ML @ 60 mls/hr IV.SIG ONCE ONE Rx#:[id number] Maxipime Inj 2,000 MG In NS Inj 100 / 100 100 / 100 100 ML @ 200 mls/hr IV.SIG Q12H RICARDO Rx#:[id number] Cleocin 900 mg/NS Premix 900 mg 50 / 50 100 / 100 In 50 ml @ 100 mls/hr IV.SIG Q8H RICARDO Rx#:[id number] LR 1000 mL Inj 1,000 ML @ Wide 1000 / 1000 Open IV.SIG BOLUS ONE Rx#: [id number] Levophed Inj 4 MG In NS Inj 246 560 / 560 190 / 190 ML @ 2 MCG/MIN 7.5 mls/hr IV. SIG TITRATE PRN Rx#:[id number] fentaNYL 10 mcg/mL Premix Drip 311 / 311 189 / 189 2,500 mcg In 250 ml @ 50 MCG/HR 5 mls/hr IV.SIG TITRATE PRN Rx #:[id number] Anesthesia Amount 200 / 200 Output: Estimated Blood Loss 20 / 20 Urine Amount (Catheter) 1650 / 1650 1900 / 1900 1 1650 / 1650 1900 / 1900 Gastric Drainage 50 / 50 0 / 0 Nasogastric Tube 50 / 50 0 / 0 Wound Vac Amount 1100 / 1100 950 / 950 Posterior Sacrum 1100 / 1100 950 / 950 Other: Mode Setting Posterior Sacrum Continuous Continuous Continuous Date of Last Bowel Movement 12/18/17 12/18/17 12/18/17 # Bowel Movements 0 12/15/17 06:30 Blood - Peripheral Aerobic Blood Culture - Preliminary No growth in 4 days 12/15/17 06:30 Blood - Peripheral Anaerobic Blood Culture - Preliminary No growth in 4 days 12/15/17 06:45 Blood - Peripheral Aerobic Blood Culture - Preliminary No growth in 4 days 12/15/17 06:45 Blood - Peripheral Anaerobic Blood Culture - Preliminary No growth in 4 days Lab - Hematology Results 12/18/17 12/19/17 03:45 05:00 WBC 21.7 H 19.7 H RBC 3.39 L 2.65 L Hgb 9.7 L D 7.5 L D Hct 27.7 L 22.1 L MCV 81.6 83.3 MCH 28.5 28.3 MCHC 34.9 34.0 RDW 15.0 15.1 Plt Count 138 L 102 L MPV 7.9 8.1 Prelim Diff (Auto) Slide review pending Slide review pending Neut % (Auto) 87.4 H 80.2 H Lymph % (Auto) 11.1 17.5 [place] % (Auto) 0.8 1.1 Eos % (Auto) 0.2 0.6 Baso % (Auto) 0.5 0.6 Neut # (Auto) 19.0 H 15.8 H Lymph # (Auto) 2.4 3.4 [place] # (Auto) 0.2 0.2 Eos # (Auto) 0.0 0.1 Baso # (Auto) 0.1 0.1 WBC Differential Manual diff final Manual diff final Seg Neuts % (Manual) 57 74 H Band Neuts % (Manual) 27 H 5 Lymphocytes % (Manual) 11 16 Monocytes % (Manual) 1 3 Metamyelocytes % (Man) 3 H Myelocytes % (Man) 1 H 1 H Promyelocytes % (Man) 1 H Abs Neuts (Manual) 19.1 H 16.0 H Nucleated RBCs/100 WBC 1 H Differential Comment . . Toxic Granulation 1+ H 1+ H Toxic Vacuolation Present H Present H Dohle Bodies Present H Present H Platelet Estimate Low L Low L Platelet Morphology Normal Normal RBC Morphology Normal Lab - Chemistry Results 12/17/17 12/17/17 12/17/17 12:07 14:09 17:17 Sodium Potassium Chloride Carbon Dioxide Anion Gap BUN Creatinine Estimated GFR POC Glucose 136 H 163 H 225 H Random Glucose Lactic Acid Calcium Prot Corrected Calcium Total Bilirubin AST ALT Alkaline Phosphatase Total Protein Albumin Prealbumin 12/17/17 12/17/17 12/17/17 20:31 21:48 22:57 Sodium Potassium Chloride Carbon Dioxide Anion Gap BUN Creatinine Estimated GFR POC Glucose 304 H 263 H 210 H Random Glucose Lactic Acid Calcium Prot Corrected Calcium Total Bilirubin AST ALT Alkaline Phosphatase Total Protein Albumin Prealbumin 12/17/17 12/18/17 12/18/17 23:49 00:50 01:55 Sodium Potassium Chloride Carbon Dioxide Anion Gap BUN Creatinine Estimated GFR POC Glucose 163 H 116 H 102 Random Glucose Lactic Acid Calcium Prot Corrected Calcium Total Bilirubin AST ALT Alkaline Phosphatase Total Protein Albumin Prealbumin 12/18/17 12/18/17 12/18/17 03:14 03:45 03:54 Sodium 140 Potassium 4.1 Chloride 111 H Carbon Dioxide 20.1 L Anion Gap 9 BUN 23 H Creatinine 0.93 Estimated GFR 63 L POC Glucose 90 96 Random Glucose 116 H Lactic Acid Calcium 6.7 L* Prot Corrected Calcium 7.4 L* Total Bilirubin 0.9 AST 26 ALT 8 L Alkaline Phosphatase 288 H Total Protein 5.7 L D Albumin 0.9 L Prealbumin 5 L 12/18/17 12/18/17 12/18/17 04:50 05:37 06:41 Sodium Potassium Chloride Carbon Dioxide Anion Gap BUN Creatinine Estimated GFR POC Glucose 118 H 130 H 139 H Random Glucose Lactic Acid Calcium Prot Corrected Calcium Total Bilirubin AST ALT Alkaline Phosphatase Total Protein Albumin Prealbumin 12/18/17 12/18/17 12/18/17 08:00 08:17 09:08 Sodium Potassium Chloride Carbon Dioxide Anion Gap BUN Creatinine Estimated GFR POC Glucose 125 H 97 Random Glucose Lactic Acid 3.0 H Calcium Prot Corrected Calcium Total Bilirubin AST ALT Alkaline Phosphatase Total Protein Albumin Prealbumin 12/18/17 12/18/17 12/18/17 09:58 11:02 12:11 Sodium Potassium Chloride Carbon Dioxide Anion Gap BUN Creatinine Estimated GFR POC Glucose 83 84 Random Glucose 84 Lactic Acid Calcium Prot Corrected Calcium Total Bilirubin AST ALT Alkaline Phosphatase Total Protein Albumin Prealbumin 12/18/17 12/18/17 12/18/17 13:07 13:38 13:44 Sodium Potassium Chloride Carbon Dioxide Anion Gap BUN Creatinine Estimated GFR POC Glucose 85 109 Random Glucose Lactic Acid 1.0 Calcium Prot Corrected Calcium Total Bilirubin AST ALT Alkaline Phosphatase Total Protein Albumin Prealbumin 12/18/17 12/18/17 12/18/17 15:04 16:02 16:58 Sodium Potassium Chloride Carbon Dioxide Anion Gap BUN Creatinine Estimated GFR POC Glucose 138 H 156 H 173 H Random Glucose Lactic Acid Calcium Prot Corrected Calcium Total Bilirubin AST ALT Alkaline Phosphatase Total Protein Albumin Prealbumin 12/18/17 12/18/17 12/18/17 17:59 19:04 20:19 Sodium Potassium Chloride Carbon Dioxide Anion Gap BUN Creatinine Estimated GFR POC Glucose 154 H 139 H 118 H Random Glucose Lactic Acid Calcium Prot Corrected Calcium Total Bilirubin AST ALT Alkaline Phosphatase Total Protein Albumin Prealbumin 12/18/17 12/18/17 12/18/17 21:13 22:06 23:05 Sodium Potassium Chloride Carbon Dioxide Anion Gap BUN Creatinine Estimated GFR POC Glucose 113 H 119 H 112 H Random Glucose Lactic Acid Calcium Prot Corrected Calcium Total Bilirubin AST ALT Alkaline Phosphatase Total Protein Albumin Prealbumin 12/19/17 12/19/17 12/19/17 00:04 01:32 02:07 Sodium Potassium Chloride Carbon Dioxide Anion Gap BUN Creatinine Estimated GFR POC Glucose 104 132 H 133 H Random Glucose Lactic Acid Calcium Prot Corrected Calcium Total Bilirubin AST ALT Alkaline Phosphatase Total Protein Albumin Prealbumin 12/19/17 12/19/17 12/19/17 03:09 04:05 05:00 Sodium 139 Potassium 3.6 Chloride 110 H Carbon Dioxide 19.0 L Anion Gap 10 BUN 22 H Creatinine 1.01 H Estimated GFR 57 L POC Glucose 146 H 113 H Random Glucose 98 Lactic Acid Calcium 7.4 L* Prot Corrected Calcium 8.3 L D Total Bilirubin 0.8 AST 20 ALT 6 L Alkaline Phosphatase 252 H Total Protein 5.4 L Albumin 1.2 L Prealbumin 12/19/17 12/19/17 12/19/17 05:02 06:00 06:53 Sodium Potassium Chloride Carbon Dioxide Anion Gap BUN Creatinine Estimated GFR POC Glucose 96 113 H 117 H Random Glucose Lactic Acid Calcium Prot Corrected Calcium Total Bilirubin AST ALT Alkaline Phosphatase Total Protein Albumin Prealbumin 12/19/17 12/19/17 12/19/17 08:20 09:11 10:04 Sodium Potassium Chloride Carbon Dioxide Anion Gap BUN Creatinine Estimated GFR POC Glucose 131 H 119 H 109 Random Glucose Lactic Acid Calcium Prot Corrected Calcium Total Bilirubin AST ALT Alkaline Phosphatase Total Protein Albumin Prealbumin Imaging: ITS Impressions Femur X-Ray 12/15/17 07:05 CONCLUSION: No fracture is identified. There is extensive soft tissue air in the right gluteal region and extending into the proximal and mid posterior thigh. The soft tissue air suggests an open wound. Pelvis X-Ray 12/15/17 07:05 CONCLUSION: No fracture is identified. However, there is extensive soft tissue air in the left gluteal region and left proximal thigh. Pelvis CT 12/15/17 07:52 CONCLUSION: 1. No fracture is identified. 2. Extensive subcutaneous and soft tissue gas bilaterally, left greater than right. It is most severe in the left gluteal region and extends into the proximal posterior thigh. The soft tissue air dissects through the gluteal musculature. There is adjacent subcutaneous edema. Chest X-Ray 12/17/17 04:00 CONCLUSION: No significant change. Left greater than right parenchymal opacities persist. Foot X-Ray 12/18/17 00:00 CONCLUSION: Remote small avulsion fracture at the fifth toe. No acute bony abnormality. Physical Exam: PHYSICAL EXAMINATION: GENERAL: Sedated. HEENT: Unable to assess fully. The sclerae has edema. Oropharynx intubated. NECK: Supple. No adenopathy or swelling. LUNGS: Coarse rhonchi. HEART: irregular S1 and S2. 1-2/6 systolic murmur at the left sternal border. ABDOMEN: Bowel sounds present, soft. BACK: Surgical wound post debridement across the lower back, buttock and thigh. Vac in place. EXTREMITIES: No clubbing, no cyanosis or edema. abrasion with dry necrotic changes at left dorsal toes 2-4. SKIN: No diffuse rash. NEUROLOGIC: Unable to assess. PSYCHIATRIC: Unable to assess. Assessment and Plan - Plan IMPRESSION: 1. Necrotizing fasciitis of the back, buttock and thigh. 2. Septic shock. 3. Acute respiratory failure. 4. Chronic kidney disease. 5. Leukocytosis. RECOMMENDATIONS: 1. Culture of wound. Discussed with RN who will be assisting with vac change planned on Sunday. 2. Continue vancomycin. 3. Continue clindamycin. 4. Continue cefepime for gram-negative coverage. 5. Monitor the WBC.
--- NOTE | 2017-12-19 12:13 | P.PNPAL ---
Reason for Visit Reason for visit: a. To assist with evaluation and management of symptoms including: Pain. b. To assist medical decision maker(s) with: better understanding of current medical conditions; weighing benefits/burdens of medical treatment options; making medical treatment decisions. Subjective Subjective/Interval History: Palliative Care follow-up for assist with symptom management, family support and goals of care. Patient remains critical ill on ventilator support and vasopressors. Returned to OR yesterday for necrotic tissue debridement of pelvic region and thigh with wound VAC change. Pending transfusion of 2 packs of red blood cells for hemoglobin of 7.5 status post surgical intervention. FiO2 requirement improving, currently 50%. Plan to return to or this incoming Sunday for I & D and wound VAC change. No acute issues overnight. Patient was evaluated by podiatry on 12/18 for left foot ischemia, patient with history of diabetes, PVD and right AKA. Wound care recommended, patient will need multiple digital amputation once medically stable for surgery. No family at bedside during my visit. Telephone call to patient's Tyrone left message in . Telephone conversation with patient's Sister Linette who is currently in [place]. Linette reports that patient's family is is still in [place], family planning to visit patient this incoming weight gain or the following weekend. Sister has been getting medical updates from nursing staff, she appears to have a good understanding of patient's critical condition and guarded prognosis. She reports that families consensus is to continue aggressive management at this time, allow a few more days for clinical improvement. Sister verbalized concerns of patient's quality of life and ability to recuperate or even survive this hospitalization. sister receptive to palliative care follow-ups. Case reviewed with bedside RN and Dr. Giles. Family/Friend Interactions: See above. Advance Directives Living Will: Never completed Health Care Surrogate: Never completed Health Care Surrogate Name and Number: HCP Tyrone Middleton Documented care wishes:: No known documented care wishes have been completed Objective Vital Signs: Vital Signs 12/18/17 12:00 12/18/17 15:19 12/18/17 16:00 Temperature 97.3 F L 95 F L Pulse Rate 86 90 Respiratory Rate 20 22 22 Pulse Oximetry 92 L 94 L 94 L 12/18/17 20:00 12/18/17 20:15 12/19/17 00:00 Temperature 97.5 F L 99.1 F Pulse Rate 80 89 Respiratory Rate 22 22 22 Pulse Oximetry 93 L 93 L 99 12/19/17 00:30 12/19/17 04:00 12/19/17 04:22 Temperature 98.6 F Pulse Rate 100 H Respiratory Rate 22 22 22 Pulse Oximetry 99 98 96 12/19/17 07:00 12/19/17 07:15 12/19/17 07:30 Temperature 98.6 F 98.6 F 98.6 F Pulse Rate 107 H 108 H 111 H Respiratory Rate 22 22 22 Pulse Oximetry 95 95 95 12/19/17 07:45 12/19/17 08:00 12/19/17 08:07 Temperature 98.6 F 98.8 F Pulse Rate 106 H 103 H Respiratory Rate 22 22 22 Pulse Oximetry 95 94 L 94 L 12/19/17 08:15 12/19/17 08:30 12/19/17 08:34 Temperature 98.6 F 98.6 F Pulse Rate 103 H 104 H 105 H Respiratory Rate 22 22 22 Pulse Oximetry 94 L 96 12/19/17 09:00 Temperature Pulse Rate 105 H Respiratory Rate Pulse Oximetry Intake & Output 12/18/17 12/19/17 12/19/17 18:59 06:59 18:59 Intake Total 4997 / 4997 1090 / 1090 1156.3 / 1156.3 Output Total 2820 / 2820 2850 / 2850 Balance 2177 / 2177 -1760 / -1760 1156.3 / 1156.3 Weight 82.4 kg Intake: IV 4797 / 4797 1090 / 1090 1156.3 / 1156.3 D5W/LR Inj 1,000 ML @ 75 mls/hr 1657 / 1657 543 / 543 850 / 850 IV.CONT .[id number] [facility] Rx#: [id number] NovoLIN R (IV Infusion) 100 56 / 56 17.3 / 17.3 UNIT In NS Inj 99 ML @ Per Protocol IV.CONT TITRATE PRN Rx #:[id number] Primacor Inj 20 MG In NS Inj 80 160 / 160 40 / 40 ML @ 0.25 MCG/KG/MIN 5.38 mls/ hr IV.CONT .[id number] [facility] Rx#: [id number] Diprivan 1000 mg/100 ml Inj 1, 148 / 148 52 / 52 100 / 100 000 mg In 100 ml @ 5 MCG/KG/MIN 1.837 mls/hr IV.CONT TITRATE PRN Rx#:[id number] Pitressin Inj 40 UNIT In NS Inj 135 / 135 65 / 65 98 ML @ 0.04 UNITS/MIN 6 mls/ hr IV.CONT CONT [facility] Rx#: [id number] Alburx 5% Inj 500 ML @ 250 mls/ 500 / 500 hr IV.SIG STAT STA Rx#:[id number] Calcium Chloride Inj 2 GM In NS 120 / 120 Inj 100 ML @ 60 mls/hr IV.SIG ONCE ONE Rx#:[id number] Maxipime Inj 2,000 MG In NS Inj 100 / 100 100 / 100 100 ML @ 200 mls/hr IV.SIG Q12H [facility] Rx#:[id number] Cleocin 900 mg/NS Premix 900 mg 50 / 50 100 / 100 In 50 ml @ 100 mls/hr IV.SIG Q8H [facility] Rx#:[id number] LR 1000 mL Inj 1,000 ML @ Wide 1000 / 1000 Open IV.SIG BOLUS ONE Rx#: [id number] Levophed Inj 4 MG In NS Inj 246 560 / 560 190 / 190 ML @ 2 MCG/MIN 7.5 mls/hr IV. SIG TITRATE PRN Rx#:[id number] fentaNYL 10 mcg/mL Premix Drip 311 / 311 189 / 189 2,500 mcg In 250 ml @ 50 MCG/HR 5 mls/hr IV.SIG TITRATE PRN Rx #:[id number] Anesthesia Amount 200 / 200 Output: Estimated Blood Loss 20 / 20 Urine Amount (Catheter) 1650 / 1650 1900 / 1900 1 1650 / 1650 1900 / 1900 Gastric Drainage 50 / 50 0 / 0 Nasogastric Tube 50 / 50 0 / 0 Wound Vac Amount 1100 / 1100 950 / 950 Posterior Sacrum 1100 / 1100 950 / 950 Other: Mode Setting Posterior Sacrum Continuous Continuous Continuous Date of Last Bowel Movement 12/18/17 12/18/17 12/18/17 # Bowel Movements 0 Physical Exam: CONSTITUTIONAL/GENERAL: This is a chronically ill appearing female who looks older than her stated age. currently intubated on mechanical vent TUBES/LINES/DRAINS:ETT, NGT, CVL, Art line, Tristan, SCDs, PIV SKIN: Abrasion on left forehead. Wound VAC in place over lower lumbar region with blood-tinged drainage. Skin temperature appropriate. Not diaphoretic. HEAD: Atraumatic. Normocephalic. EYES: Pupils equal and round, reactive. No scleral icterus. No injection or drainage. ENT: Nose without bleeding or purulent drainage. Moist oral mucosa. NECK: Trachea midline. Supple, nontender. CARDIOVASCULAR: Tachycardic with heart rate in the low 110s. Regular rate and rhythm. Palpable pedal pulse L foot. RESPIRATORY/CHEST: Intubated on vent. FiO2 50%. Breath sounds equal bilaterally. GASTROINTESTINAL: Abdomen soft, non-tender, nondistended. No guarding. Bowel sounds present. GENITOURINARY: Without palpable bladder distension. Tristan catheter in place. MUSCULOSKELETAL: Status post right BKA. Left foot cool to touch; several toes with necrotic ulcerations on left foot/wrapped in dressing. NEUROLOGICAL: Sedated. Briefly opening eyes to tactile stimuli. PSYCHIATRIC: Unable to assess given current level of responsiveness Diagnostic Tests Laboratory: Laboratory Results - last 72 hr 12/15/17 12/16/17 12/16/17 16:51 08:29 12:02 WBC RBC Hgb Hct MCV MCH MCHC RDW Plt Count MPV Prelim Diff (Auto) Neut % (Auto) Lymph % (Auto) [place] % (Auto) Eos % (Auto) Baso % (Auto) Neut # (Auto) Lymph # (Auto) [place] # (Auto) Eos # (Auto) Baso # (Auto) WBC Differential Seg Neuts % (Manual) Band Neuts % (Manual) Lymphocytes % (Manual) Monocytes % (Manual) Metamyelocytes % (Man) Myelocytes % (Man) Promyelocytes % (Man) Abs Neuts (Manual) Nucleated RBCs/100 WBC Differential Comment Toxic Granulation Toxic Vacuolation Dohle Bodies Platelet Estimate Platelet Morphology RBC Morphology Puncture Site Patient Temperature O2 Saturation ABG pH ABG pCO2 ABG pO2 ABG HCO3 ABG O2 Content ABG Base Excess ABG Methemoglobin Hemoglobin Carboxyhemoglobin O2 Delivery Device Vent Setting Inspired O2 Critical Value Sodium Potassium Chloride Carbon Dioxide Anion Gap BUN Creatinine Estimated GFR POC Glucose 271 H 200 H Random Glucose Lactic Acid Calcium Prot Corrected Calcium Total Bilirubin AST ALT Alkaline Phosphatase Total Protein Albumin Prealbumin Random Vancomycin MTS Gel Crossmatch See Detail Bld Prod Order Comment 12/16/17 12/16/17 12/16/17 17:36 17:38 17:47 WBC RBC Hgb Hct MCV MCH MCHC RDW Plt Count MPV Prelim Diff (Auto) Neut % (Auto) Lymph % (Auto) [place] % (Auto) Eos % (Auto) Baso % (Auto) Neut # (Auto) Lymph # (Auto) [place] # (Auto) Eos # (Auto) Baso # (Auto) WBC Differential Seg Neuts % (Manual) Band Neuts % (Manual) Lymphocytes % (Manual) Monocytes % (Manual) Metamyelocytes % (Man) Myelocytes % (Man) Promyelocytes % (Man) Abs Neuts (Manual) Nucleated RBCs/100 WBC Differential Comment Toxic Granulation Toxic Vacuolation Dohle Bodies Platelet Estimate Platelet Morphology RBC Morphology Puncture Site Patient Temperature O2 Saturation ABG pH ABG pCO2 ABG pO2 ABG HCO3 ABG O2 Content ABG Base Excess ABG Methemoglobin Hemoglobin Carboxyhemoglobin O2 Delivery Device Vent Setting Inspired O2 Critical Value Sodium Potassium Chloride Carbon Dioxide Anion Gap BUN Creatinine Estimated GFR POC Glucose 42 L* 40 L* 40 L* Random Glucose Lactic Acid Calcium Prot Corrected Calcium Total Bilirubin AST ALT Alkaline Phosphatase Total Protein Albumin Prealbumin Random Vancomycin MTS Gel Crossmatch Bld Prod Order Comment 12/16/17 12/16/17 12/16/17 18:00 18:28 21:07 WBC RBC Hgb Hct MCV MCH MCHC RDW Plt Count MPV Prelim Diff (Auto) Neut % (Auto) Lymph % (Auto) [place] % (Auto) Eos % (Auto) Baso % (Auto) Neut # (Auto) Lymph # (Auto) [place] # (Auto) Eos # (Auto) Baso # (Auto) WBC Differential Seg Neuts % (Manual) Band Neuts % (Manual) Lymphocytes % (Manual) Monocytes % (Manual) Metamyelocytes % (Man) Myelocytes % (Man) Promyelocytes % (Man) Abs Neuts (Manual) Nucleated RBCs/100 WBC Differential Comment Toxic Granulation Toxic Vacuolation Dohle Bodies Platelet Estimate Platelet Morphology RBC Morphology Puncture Site Patient Temperature O2 Saturation ABG pH ABG pCO2 ABG pO2 ABG HCO3 ABG O2 Content ABG Base Excess ABG Methemoglobin Hemoglobin Carboxyhemoglobin O2 Delivery Device Vent Setting Inspired O2 Critical Value Sodium Potassium Chloride Carbon Dioxide Anion Gap BUN Creatinine Estimated GFR POC Glucose 135 H 44 L* Random Glucose 34 L* D Lactic Acid Calcium Prot Corrected Calcium Total Bilirubin AST ALT Alkaline Phosphatase Total Protein Albumin Prealbumin Random Vancomycin MTS Gel Crossmatch Bld Prod Order Comment 12/16/17 12/16/17 12/16/17 21:38 23:24 23:44 WBC RBC Hgb Hct MCV MCH MCHC RDW Plt Count MPV Prelim Diff (Auto) Neut % (Auto) Lymph % (Auto) [place] % (Auto) Eos % (Auto) Baso % (Auto) Neut # (Auto) Lymph # (Auto) [place] # (Auto) Eos # (Auto) Baso # (Auto) WBC Differential Seg Neuts % (Manual) Band Neuts % (Manual) Lymphocytes % (Manual) Monocytes % (Manual) Metamyelocytes % (Man) Myelocytes % (Man) Promyelocytes % (Man) Abs Neuts (Manual) Nucleated RBCs/100 WBC Differential Comment Toxic Granulation Toxic Vacuolation Dohle Bodies Platelet Estimate Platelet Morphology RBC Morphology Puncture Site Patient Temperature O2 Saturation ABG pH ABG pCO2 ABG pO2 ABG HCO3 ABG O2 Content ABG Base Excess ABG Methemoglobin Hemoglobin Carboxyhemoglobin O2 Delivery Device Vent Setting Inspired O2 Critical Value Sodium Potassium 3.7 Chloride Carbon Dioxide Anion Gap BUN Creatinine Estimated GFR POC Glucose 139 H 89 Random Glucose Lactic Acid Calcium Prot Corrected Calcium Total Bilirubin AST ALT Alkaline Phosphatase Total Protein Albumin Prealbumin Random Vancomycin MTS Gel Crossmatch Bld Prod Order Comment 12/17/17 12/17/17 12/17/17 01:56 02:23 03:44 WBC RBC Hgb Hct MCV MCH MCHC RDW Plt Count MPV Prelim Diff (Auto) Neut % (Auto) Lymph % (Auto) [place] % (Auto) Eos % (Auto) Baso % (Auto) Neut # (Auto) Lymph # (Auto) [place] # (Auto) Eos # (Auto) Baso # (Auto) WBC Differential Seg Neuts % (Manual) Band Neuts % (Manual) Lymphocytes % (Manual) Monocytes % (Manual) Metamyelocytes % (Man) Myelocytes % (Man) Promyelocytes % (Man) Abs Neuts (Manual) Nucleated RBCs/100 WBC Differential Comment Toxic Granulation Toxic Vacuolation Dohle Bodies Platelet Estimate Platelet Morphology RBC Morphology Puncture Site Patient Temperature O2 Saturation ABG pH ABG pCO2 ABG pO2 ABG HCO3 ABG O2 Content ABG Base Excess ABG Methemoglobin Hemoglobin Carboxyhemoglobin O2 Delivery Device Vent Setting Inspired O2 Critical Value Sodium Potassium Chloride Carbon Dioxide Anion Gap BUN Creatinine Estimated GFR POC Glucose 66 L 155 H 122 H Random Glucose Lactic Acid Calcium Prot Corrected Calcium Total Bilirubin AST ALT Alkaline Phosphatase Total Protein Albumin Prealbumin Random Vancomycin MTS Gel Crossmatch Bld Prod Order Comment 12/17/17 12/17/17 12/17/17 04:16 04:16 05:17 WBC 15.1 H RBC 2.63 L Hgb 7.2 L Hct 21.9 L MCV 83.1 MCH 27.4 MCHC 33.0 RDW 14.9 Plt Count 165 D MPV 8.0 Prelim Diff (Auto) Slide review pending Neut % (Auto) 80.8 H Lymph % (Auto) 16.8 [place] % (Auto) 1.7 Eos % (Auto) 0.3 Baso % (Auto) 0.4 Neut # (Auto) 12.2 H Lymph # (Auto) 2.5 [place] # (Auto) 0.2 Eos # (Auto) 0.0 Baso # (Auto) 0.1 WBC Differential Manual diff final Seg Neuts % (Manual) 77 H Band Neuts % (Manual) 5 Lymphocytes % (Manual) 15 Monocytes % (Manual) Metamyelocytes % (Man) 3 H Myelocytes % (Man) Promyelocytes % (Man) Abs Neuts (Manual) 12.8 H Nucleated RBCs/100 WBC Differential Comment . Toxic Granulation 1+ H Toxic Vacuolation Present H Dohle Bodies Present H Platelet Estimate Normal Platelet Morphology Normal RBC Morphology Normal Puncture Site Patient Temperature O2 Saturation ABG pH ABG pCO2 ABG pO2 ABG HCO3 ABG O2 Content ABG Base Excess ABG Methemoglobin Hemoglobin Carboxyhemoglobin O2 Delivery Device Vent Setting Inspired O2 Critical Value Sodium 140 Potassium 3.6 Chloride 110 H Carbon Dioxide 21.5 Anion Gap 9 BUN 26 H Creatinine 1.02 H Estimated GFR 57 L POC Glucose Random Glucose 112 H Lactic Acid Calcium 6.4 L* Prot Corrected Calcium 7.4 L* Total Bilirubin 0.6 AST 9 L ALT 8 L Alkaline Phosphatase 260 H Total Protein 5.1 L Albumin 0.8 L Prealbumin Random Vancomycin MTS Gel Crossmatch See Detail Bld Prod Order Comment Cancelled 12/17/17 12/17/17 12/17/17 06:22 08:21 08:22 WBC RBC Hgb Hct MCV MCH MCHC RDW Plt Count MPV Prelim Diff (Auto) Neut % (Auto) Lymph % (Auto) [place] % (Auto) Eos % (Auto) Baso % (Auto) Neut # (Auto) Lymph # (Auto) [place] # (Auto) Eos # (Auto) Baso # (Auto) WBC Differential Seg Neuts % (Manual) Band Neuts % (Manual) Lymphocytes % (Manual) Monocytes % (Manual) Metamyelocytes % (Man) Myelocytes % (Man) Promyelocytes % (Man) Abs Neuts (Manual) Nucleated RBCs/100 WBC Differential Comment Toxic Granulation Toxic Vacuolation Dohle Bodies Platelet Estimate Platelet Morphology RBC Morphology Puncture Site Art line Patient Temperature 98.6 O2 Saturation 96 ABG pH 7.40 ABG pCO2 35 L ABG pO2 149 H ABG HCO3 21 L ABG O2 Content 12.5 ABG Base Excess -3.3 L ABG Methemoglobin 1.5 Hemoglobin 9.1 L Carboxyhemoglobin 1.6 O2 Delivery Device Ventilator Vent Setting Prvc/ac Inspired O2 60 Critical Value No Sodium Potassium Chloride Carbon Dioxide Anion Gap BUN Creatinine Estimated GFR POC Glucose 110 100 Random Glucose Lactic Acid Calcium Prot Corrected Calcium Total Bilirubin AST ALT Alkaline Phosphatase Total Protein Albumin Prealbumin Random Vancomycin MTS Gel Crossmatch Bld Prod Order Comment 12/17/17 12/17/17 12/17/17 10:43 12:07 14:09 WBC RBC Hgb Hct MCV MCH MCHC RDW Plt Count MPV Prelim Diff (Auto) Neut % (Auto) Lymph % (Auto) [place] % (Auto) Eos % (Auto) Baso % (Auto) Neut # (Auto) Lymph # (Auto) [place] # (Auto) Eos # (Auto) Baso # (Auto) WBC Differential Seg Neuts % (Manual) Band Neuts % (Manual) Lymphocytes % (Manual) Monocytes % (Manual) Metamyelocytes % (Man) Myelocytes % (Man) Promyelocytes % (Man) Abs Neuts (Manual) Nucleated RBCs/100 WBC Differential Comment Toxic Granulation Toxic Vacuolation Dohle Bodies Platelet Estimate Platelet Morphology RBC Morphology Puncture Site Patient Temperature O2 Saturation ABG pH ABG pCO2 ABG pO2 ABG HCO3 ABG O2 Content ABG Base Excess ABG Methemoglobin Hemoglobin Carboxyhemoglobin O2 Delivery Device Vent Setting Inspired O2 Critical Value Sodium Potassium Chloride Carbon Dioxide Anion Gap BUN Creatinine Estimated GFR POC Glucose 120 H 136 H 163 H Random Glucose Lactic Acid Calcium Prot Corrected Calcium Total Bilirubin AST ALT Alkaline Phosphatase Total Protein Albumin Prealbumin Random Vancomycin MTS Gel Crossmatch Bld Prod Order Comment 12/17/17 12/17/17 12/17/17 17:17 20:31 21:48 WBC RBC Hgb Hct MCV MCH MCHC RDW Plt Count MPV Prelim Diff (Auto) Neut % (Auto) Lymph % (Auto) [place] % (Auto) Eos % (Auto) Baso % (Auto) Neut # (Auto) Lymph # (Auto) [place] # (Auto) Eos # (Auto) Baso # (Auto) WBC Differential Seg Neuts % (Manual) Band Neuts % (Manual) Lymphocytes % (Manual) Monocytes % (Manual) Metamyelocytes % (Man) Myelocytes % (Man) Promyelocytes % (Man) Abs Neuts (Manual) Nucleated RBCs/100 WBC Differential Comment Toxic Granulation Toxic Vacuolation Dohle Bodies Platelet Estimate Platelet Morphology RBC Morphology Puncture Site Patient Temperature O2 Saturation ABG pH ABG pCO2 ABG pO2 ABG HCO3 ABG O2 Content ABG Base Excess ABG Methemoglobin Hemoglobin Carboxyhemoglobin O2 Delivery Device Vent Setting Inspired O2 Critical Value Sodium Potassium Chloride Carbon Dioxide Anion Gap BUN Creatinine Estimated GFR POC Glucose 225 H 304 H 263 H Random Glucose Lactic Acid Calcium Prot Corrected Calcium Total Bilirubin AST ALT Alkaline Phosphatase Total Protein Albumin Prealbumin Random Vancomycin MTS Gel Crossmatch Bld Prod Order Comment 12/17/17 12/17/17 12/18/17 22:57 23:49 00:50 WBC RBC Hgb Hct MCV MCH MCHC RDW Plt Count MPV Prelim Diff (Auto) Neut % (Auto) Lymph % (Auto) [place] % (Auto) Eos % (Auto) Baso % (Auto) Neut # (Auto) Lymph # (Auto) [place] # (Auto) Eos # (Auto) Baso # (Auto) WBC Differential Seg Neuts % (Manual) Band Neuts % (Manual) Lymphocytes % (Manual) Monocytes % (Manual) Metamyelocytes % (Man) Myelocytes % (Man) Promyelocytes % (Man) Abs Neuts (Manual) Nucleated RBCs/100 WBC Differential Comment Toxic Granulation Toxic Vacuolation Dohle Bodies Platelet Estimate Platelet Morphology RBC Morphology Puncture Site Patient Temperature O2 Saturation ABG pH ABG pCO2 ABG pO2 ABG HCO3 ABG O2 Content ABG Base Excess ABG Methemoglobin Hemoglobin Carboxyhemoglobin O2 Delivery Device Vent Setting Inspired O2 Critical Value Sodium Potassium Chloride Carbon Dioxide Anion Gap BUN Creatinine Estimated GFR POC Glucose 210 H 163 H 116 H Random Glucose Lactic Acid Calcium Prot Corrected Calcium Total Bilirubin AST ALT Alkaline Phosphatase Total Protein Albumin Prealbumin Random Vancomycin MTS Gel Crossmatch Bld Prod Order Comment 12/18/17 12/18/17 12/18/17 01:55 03:14 03:45 WBC 21.7 H RBC 3.39 L Hgb 9.7 L D Hct 27.7 L MCV 81.6 MCH 28.5 MCHC 34.9 RDW 15.0 Plt Count 138 L MPV 7.9 Prelim Diff (Auto) Slide review pending Neut % (Auto) 87.4 H Lymph % (Auto) 11.1 [place] % (Auto) 0.8 Eos % (Auto) 0.2 Baso % (Auto) 0.5 Neut # (Auto) 19.0 H Lymph # (Auto) 2.4 [place] # (Auto) 0.2 Eos # (Auto) 0.0 Baso # (Auto) 0.1 WBC Differential Manual diff final Seg Neuts % (Manual) 57 Band Neuts % (Manual) 27 H Lymphocytes % (Manual) 11 Monocytes % (Manual) 1 Metamyelocytes % (Man) 3 H Myelocytes % (Man) 1 H Promyelocytes % (Man) Abs Neuts (Manual) 19.1 H Nucleated RBCs/100 WBC 1 H Differential Comment . Toxic Granulation 1+ H Toxic Vacuolation Present H Dohle Bodies Present H Platelet Estimate Low L Platelet Morphology Normal RBC Morphology Normal Puncture Site Patient Temperature O2 Saturation ABG pH ABG pCO2 ABG pO2 ABG HCO3 ABG O2 Content ABG Base Excess ABG Methemoglobin Hemoglobin Carboxyhemoglobin O2 Delivery Device Vent Setting Inspired O2 Critical Value Sodium Potassium Chloride Carbon Dioxide Anion Gap BUN Creatinine Estimated GFR POC Glucose 102 90 Random Glucose Lactic Acid Calcium Prot Corrected Calcium Total Bilirubin AST ALT Alkaline Phosphatase Total Protein Albumin Prealbumin Random Vancomycin MTS Gel Crossmatch Bld Prod Order Comment 12/18/17 12/18/17 12/18/17 03:45 03:54 04:50 WBC RBC Hgb Hct MCV MCH MCHC RDW Plt Count MPV Prelim Diff (Auto) Neut % (Auto) Lymph % (Auto) [place] % (Auto) Eos % (Auto) Baso % (Auto) Neut # (Auto) Lymph # (Auto) [place] # (Auto) Eos # (Auto) Baso # (Auto) WBC Differential Seg Neuts % (Manual) Band Neuts % (Manual) Lymphocytes % (Manual) Monocytes % (Manual) Metamyelocytes % (Man) Myelocytes % (Man) Promyelocytes % (Man) Abs Neuts (Manual) Nucleated RBCs/100 WBC Differential Comment Toxic Granulation Toxic Vacuolation Dohle Bodies Platelet Estimate Platelet Morphology RBC Morphology Puncture Site Patient Temperature O2 Saturation ABG pH ABG pCO2 ABG pO2 ABG HCO3 ABG O2 Content ABG Base Excess ABG Methemoglobin Hemoglobin Carboxyhemoglobin O2 Delivery Device Vent Setting Inspired O2 Critical Value Sodium 140 Potassium 4.1 Chloride 111 H Carbon Dioxide 20.1 L Anion Gap 9 BUN 23 H Creatinine 0.93 Estimated GFR 63 L POC Glucose 96 118 H Random Glucose 116 H Lactic Acid Calcium 6.7 L* Prot Corrected Calcium 7.4 L* Total Bilirubin 0.9 AST 26 ALT 8 L Alkaline Phosphatase 288 H Total Protein 5.7 L D Albumin 0.9 L Prealbumin 5 L Random Vancomycin 24.6 MTS Gel Crossmatch Bld Prod Order Comment 12/18/17 12/18/17 12/18/17 05:37 05:48 06:41 WBC RBC Hgb Hct MCV MCH MCHC RDW Plt Count MPV Prelim Diff (Auto) Neut % (Auto) Lymph % (Auto) [place] % (Auto) Eos % (Auto) Baso % (Auto) Neut # (Auto) Lymph # (Auto) [place] # (Auto) Eos # (Auto) Baso # (Auto) WBC Differential Seg Neuts % (Manual) Band Neuts % (Manual) Lymphocytes % (Manual) Monocytes % (Manual) Metamyelocytes % (Man) Myelocytes % (Man) Promyelocytes % (Man) Abs Neuts (Manual) Nucleated RBCs/100 WBC Differential Comment Toxic Granulation Toxic Vacuolation Dohle Bodies Platelet Estimate Platelet Morphology RBC Morphology Puncture Site Art line Patient Temperature 98.6 O2 Saturation 95 ABG pH 7.35 L ABG pCO2 34 L ABG pO2 92 ABG HCO3 18 L ABG O2 Content 12.9 ABG Base Excess -6.6 L ABG Methemoglobin 1.5 Hemoglobin 9.6 L Carboxyhemoglobin 0.9 O2 Delivery Device Ventilator Vent Setting 18/[id number]/it 1.0 Inspired O2 60 Critical Value No Sodium Potassium Chloride Carbon Dioxide Anion Gap BUN Creatinine Estimated GFR POC Glucose 130 H 139 H Random Glucose Lactic Acid Calcium Prot Corrected Calcium Total Bilirubin AST ALT Alkaline Phosphatase Total Protein Albumin Prealbumin Random Vancomycin MTS Gel Crossmatch Bld Prod Order Comment 12/18/17 12/18/17 12/18/17 08:00 08:17 08:24 WBC RBC Hgb Hct MCV MCH MCHC RDW Plt Count MPV Prelim Diff (Auto) Neut % (Auto) Lymph % (Auto) [place] % (Auto) Eos % (Auto) Baso % (Auto) Neut # (Auto) Lymph # (Auto) [place] # (Auto) Eos # (Auto) Baso # (Auto) WBC Differential Seg Neuts % (Manual) Band Neuts % (Manual) Lymphocytes % (Manual) Monocytes % (Manual) Metamyelocytes % (Man) Myelocytes % (Man) Promyelocytes % (Man) Abs Neuts (Manual) Nucleated RBCs/100 WBC Differential Comment Toxic Granulation Toxic Vacuolation Dohle Bodies Platelet Estimate Platelet Morphology RBC Morphology Puncture Site Art line Patient Temperature 98.6 O2 Saturation 97 ABG pH 7.30 L ABG pCO2 35 L ABG pO2 275 H ABG HCO3 17 L ABG O2 Content 16.9 ABG Base Excess -8.7 L ABG Methemoglobin 1.4 Hemoglobin 11.9 L Carboxyhemoglobin 0.7 O2 Delivery Device Ventilator Vent Setting See comments Inspired O2 Critical Value Yes Sodium Potassium Chloride Carbon Dioxide Anion Gap BUN Creatinine Estimated GFR POC Glucose 125 H Random Glucose Lactic Acid 3.0 H Calcium Prot Corrected Calcium Total Bilirubin AST ALT Alkaline Phosphatase Total Protein Albumin Prealbumin Random Vancomycin MTS Gel Crossmatch Bld Prod Order Comment 12/18/17 12/18/17 12/18/17 09:08 09:58 11:02 WBC RBC Hgb Hct MCV MCH MCHC RDW Plt Count MPV Prelim Diff (Auto) Neut % (Auto) Lymph % (Auto) [place] % (Auto) Eos % (Auto) Baso % (Auto) Neut # (Auto) Lymph # (Auto) [place] # (Auto) Eos # (Auto) Baso # (Auto) WBC Differential Seg Neuts % (Manual) Band Neuts % (Manual) Lymphocytes % (Manual) Monocytes % (Manual) Metamyelocytes % (Man) Myelocytes % (Man) Promyelocytes % (Man) Abs Neuts (Manual) Nucleated RBCs/100 WBC Differential Comment Toxic Granulation Toxic Vacuolation Dohle Bodies Platelet Estimate Platelet Morphology RBC Morphology Puncture Site Patient Temperature O2 Saturation ABG pH ABG pCO2 ABG pO2 ABG HCO3 ABG O2 Content ABG Base Excess ABG Methemoglobin Hemoglobin Carboxyhemoglobin O2 Delivery Device Vent Setting Inspired O2 Critical Value Sodium Potassium Chloride Carbon Dioxide Anion Gap BUN Creatinine Estimated GFR POC Glucose 97 83 Random Glucose 84 Lactic Acid Calcium Prot Corrected Calcium Total Bilirubin AST ALT Alkaline Phosphatase Total Protein Albumin Prealbumin Random Vancomycin MTS Gel Crossmatch Bld Prod Order Comment 12/18/17 12/18/17 12/18/17 12:11 13:07 13:38 WBC RBC Hgb Hct MCV MCH MCHC RDW Plt Count MPV Prelim Diff (Auto) Neut % (Auto) Lymph % (Auto) [place] % (Auto) Eos % (Auto) Baso % (Auto) Neut # (Auto) Lymph # (Auto) [place] # (Auto) Eos # (Auto) Baso # (Auto) WBC Differential Seg Neuts % (Manual) Band Neuts % (Manual) Lymphocytes % (Manual) Monocytes % (Manual) Metamyelocytes % (Man) Myelocytes % (Man) Promyelocytes % (Man) Abs Neuts (Manual) Nucleated RBCs/100 WBC Differential Comment Toxic Granulation Toxic Vacuolation Dohle Bodies Platelet Estimate Platelet Morphology RBC Morphology Puncture Site Patient Temperature O2 Saturation ABG pH ABG pCO2 ABG pO2 ABG HCO3 ABG O2 Content ABG Base Excess ABG Methemoglobin Hemoglobin Carboxyhemoglobin O2 Delivery Device Vent Setting Inspired O2 Critical Value Sodium Potassium Chloride Carbon Dioxide Anion Gap BUN Creatinine Estimated GFR POC Glucose 84 85 109 Random Glucose Lactic Acid Calcium Prot Corrected Calcium Total Bilirubin AST ALT Alkaline Phosphatase Total Protein Albumin Prealbumin Random Vancomycin MTS Gel Crossmatch Bld Prod Order Comment 12/18/17 12/18/17 12/18/17 13:44 15:04 16:02 WBC RBC Hgb Hct MCV MCH MCHC RDW Plt Count MPV Prelim Diff (Auto) Neut % (Auto) Lymph % (Auto) [place] % (Auto) Eos % (Auto) Baso % (Auto) Neut # (Auto) Lymph # (Auto) [place] # (Auto) Eos # (Auto) Baso # (Auto) WBC Differential Seg Neuts % (Manual) Band Neuts % (Manual) Lymphocytes % (Manual) Monocytes % (Manual) Metamyelocytes % (Man) Myelocytes % (Man) Promyelocytes % (Man) Abs Neuts (Manual) Nucleated RBCs/100 WBC Differential Comment Toxic Granulation Toxic Vacuolation Dohle Bodies Platelet Estimate Platelet Morphology RBC Morphology Puncture Site Patient Temperature O2 Saturation ABG pH ABG pCO2 ABG pO2 ABG HCO3 ABG O2 Content ABG Base Excess ABG Methemoglobin Hemoglobin Carboxyhemoglobin O2 Delivery Device Vent Setting Inspired O2 Critical Value Sodium Potassium Chloride Carbon Dioxide Anion Gap BUN Creatinine Estimated GFR POC Glucose 138 H 156 H Random Glucose Lactic Acid 1.0 Calcium Prot Corrected Calcium Total Bilirubin AST ALT Alkaline Phosphatase Total Protein Albumin Prealbumin Random Vancomycin MTS Gel Crossmatch Bld Prod Order Comment 12/18/17 12/18/17 12/18/17 16:58 17:59 19:04 WBC RBC Hgb Hct MCV MCH MCHC RDW Plt Count MPV Prelim Diff (Auto) Neut % (Auto) Lymph % (Auto) [place] % (Auto) Eos % (Auto) Baso % (Auto) Neut # (Auto) Lymph # (Auto) [place] # (Auto) Eos # (Auto) Baso # (Auto) WBC Differential Seg Neuts % (Manual) Band Neuts % (Manual) Lymphocytes % (Manual) Monocytes % (Manual) Metamyelocytes % (Man) Myelocytes % (Man) Promyelocytes % (Man) Abs Neuts (Manual) Nucleated RBCs/100 WBC Differential Comment Toxic Granulation Toxic Vacuolation Dohle Bodies Platelet Estimate Platelet Morphology RBC Morphology Puncture Site Patient Temperature O2 Saturation ABG pH ABG pCO2 ABG pO2 ABG HCO3 ABG O2 Content ABG Base Excess ABG Methemoglobin Hemoglobin Carboxyhemoglobin O2 Delivery Device Vent Setting Inspired O2 Critical Value Sodium Potassium Chloride Carbon Dioxide Anion Gap BUN Creatinine Estimated GFR POC Glucose 173 H 154 H 139 H Random Glucose Lactic Acid Calcium Prot Corrected Calcium Total Bilirubin AST ALT Alkaline Phosphatase Total Protein Albumin Prealbumin Random Vancomycin MTS Gel Crossmatch Bld Prod Order Comment 12/18/17 12/18/17 12/18/17 20:19 21:13 22:06 WBC RBC Hgb Hct MCV MCH MCHC RDW Plt Count MPV Prelim Diff (Auto) Neut % (Auto) Lymph % (Auto) [place] % (Auto) Eos % (Auto) Baso % (Auto) Neut # (Auto) Lymph # (Auto) [place] # (Auto) Eos # (Auto) Baso # (Auto) WBC Differential Seg Neuts % (Manual) Band Neuts % (Manual) Lymphocytes % (Manual) Monocytes % (Manual) Metamyelocytes % (Man) Myelocytes % (Man) Promyelocytes % (Man) Abs Neuts (Manual) Nucleated RBCs/100 WBC Differential Comment Toxic Granulation Toxic Vacuolation Dohle Bodies Platelet Estimate Platelet Morphology RBC Morphology Puncture Site Patient Temperature O2 Saturation ABG pH ABG pCO2 ABG pO2 ABG HCO3 ABG O2 Content ABG Base Excess ABG Methemoglobin Hemoglobin Carboxyhemoglobin O2 Delivery Device Vent Setting Inspired O2 Critical Value Sodium Potassium Chloride Carbon Dioxide Anion Gap BUN Creatinine Estimated GFR POC Glucose 118 H 113 H 119 H Random Glucose Lactic Acid Calcium Prot Corrected Calcium Total Bilirubin AST ALT Alkaline Phosphatase Total Protein Albumin Prealbumin Random Vancomycin MTS Gel Crossmatch Bld Prod Order Comment 12/18/17 12/19/17 12/19/17 23:05 00:04 01:32 WBC RBC Hgb Hct MCV MCH MCHC RDW Plt Count MPV Prelim Diff (Auto) Neut % (Auto) Lymph % (Auto) [place] % (Auto) Eos % (Auto) Baso % (Auto) Neut # (Auto) Lymph # (Auto) [place] # (Auto) Eos # (Auto) Baso # (Auto) WBC Differential Seg Neuts % (Manual) Band Neuts % (Manual) Lymphocytes % (Manual) Monocytes % (Manual) Metamyelocytes % (Man) Myelocytes % (Man) Promyelocytes % (Man) Abs Neuts (Manual) Nucleated RBCs/100 WBC Differential Comment Toxic Granulation Toxic Vacuolation Dohle Bodies Platelet Estimate Platelet Morphology RBC Morphology Puncture Site Patient Temperature O2 Saturation ABG pH ABG pCO2 ABG pO2 ABG HCO3 ABG O2 Content ABG Base Excess ABG Methemoglobin Hemoglobin Carboxyhemoglobin O2 Delivery Device Vent Setting Inspired O2 Critical Value Sodium Potassium Chloride Carbon Dioxide Anion Gap BUN Creatinine Estimated GFR POC Glucose 112 H 104 132 H Random Glucose Lactic Acid Calcium Prot Corrected Calcium Total Bilirubin AST ALT Alkaline Phosphatase Total Protein Albumin Prealbumin Random Vancomycin MTS Gel Crossmatch Bld Prod Order Comment 12/19/17 12/19/17 12/19/17 02:07 03:09 04:05 WBC RBC Hgb Hct MCV MCH MCHC RDW Plt Count MPV Prelim Diff (Auto) Neut % (Auto) Lymph % (Auto) [place] % (Auto) Eos % (Auto) Baso % (Auto) Neut # (Auto) Lymph # (Auto) [place] # (Auto) Eos # (Auto) Baso # (Auto) WBC Differential Seg Neuts % (Manual) Band Neuts % (Manual) Lymphocytes % (Manual) Monocytes % (Manual) Metamyelocytes % (Man) Myelocytes % (Man) Promyelocytes % (Man) Abs Neuts (Manual) Nucleated RBCs/100 WBC Differential Comment Toxic Granulation Toxic Vacuolation Dohle Bodies Platelet Estimate Platelet Morphology RBC Morphology Puncture Site Patient Temperature O2 Saturation ABG pH ABG pCO2 ABG pO2 ABG HCO3 ABG O2 Content ABG Base Excess ABG Methemoglobin Hemoglobin Carboxyhemoglobin O2 Delivery Device Vent Setting Inspired O2 Critical Value Sodium Potassium Chloride Carbon Dioxide Anion Gap BUN Creatinine Estimated GFR POC Glucose 133 H 146 H 113 H Random Glucose Lactic Acid Calcium Prot Corrected Calcium Total Bilirubin AST ALT Alkaline Phosphatase Total Protein Albumin Prealbumin Random Vancomycin MTS Gel Crossmatch Bld Prod Order Comment 12/19/17 12/19/17 12/19/17 05:00 05:00 05:02 WBC 19.7 H RBC 2.65 L Hgb 7.5 L D Hct 22.1 L MCV 83.3 MCH 28.3 MCHC 34.0 RDW 15.1 Plt Count 102 L MPV 8.1 Prelim Diff (Auto) Slide review pending Neut % (Auto) 80.2 H Lymph % (Auto) 17.5 [place] % (Auto) 1.1 Eos % (Auto) 0.6 Baso % (Auto) 0.6 Neut # (Auto) 15.8 H Lymph # (Auto) 3.4 [place] # (Auto) 0.2 Eos # (Auto) 0.1 Baso # (Auto) 0.1 WBC Differential Manual diff final Seg Neuts % (Manual) 74 H Band Neuts % (Manual) 5 Lymphocytes % (Manual) 16 Monocytes % (Manual) 3 Metamyelocytes % (Man) Myelocytes % (Man) 1 H Promyelocytes % (Man) 1 H Abs Neuts (Manual) 16.0 H Nucleated RBCs/100 WBC Differential Comment . Toxic Granulation 1+ H Toxic Vacuolation Present H Dohle Bodies Present H Platelet Estimate Low L Platelet Morphology Normal RBC Morphology Puncture Site Patient Temperature O2 Saturation ABG pH ABG pCO2 ABG pO2 ABG HCO3 ABG O2 Content ABG Base Excess ABG Methemoglobin Hemoglobin Carboxyhemoglobin O2 Delivery Device Vent Setting Inspired O2 Critical Value Sodium 139 Potassium 3.6 Chloride 110 H Carbon Dioxide 19.0 L Anion Gap 10 BUN 22 H Creatinine 1.01 H Estimated GFR 57 L POC Glucose 96 Random Glucose 98 Lactic Acid Calcium 7.4 L* Prot Corrected Calcium 8.3 L D Total Bilirubin 0.8 AST 20 ALT 6 L Alkaline Phosphatase 252 H Total Protein 5.4 L Albumin 1.2 L Prealbumin Random Vancomycin 13.8 MTS Gel Crossmatch Bld Prod Order Comment 12/19/17 12/19/17 12/19/17 06:00 06:53 08:20 WBC RBC Hgb Hct MCV MCH MCHC RDW Plt Count MPV Prelim Diff (Auto) Neut % (Auto) Lymph % (Auto) [place] % (Auto) Eos % (Auto) Baso % (Auto) Neut # (Auto) Lymph # (Auto) [place] # (Auto) Eos # (Auto) Baso # (Auto) WBC Differential Seg Neuts % (Manual) Band Neuts % (Manual) Lymphocytes % (Manual) Monocytes % (Manual) Metamyelocytes % (Man) Myelocytes % (Man) Promyelocytes % (Man) Abs Neuts (Manual) Nucleated RBCs/100 WBC Differential Comment Toxic Granulation Toxic Vacuolation Dohle Bodies Platelet Estimate Platelet Morphology RBC Morphology Puncture Site Patient Temperature O2 Saturation ABG pH ABG pCO2 ABG pO2 ABG HCO3 ABG O2 Content ABG Base Excess ABG Methemoglobin Hemoglobin Carboxyhemoglobin O2 Delivery Device Vent Setting Inspired O2 Critical Value Sodium Potassium Chloride Carbon Dioxide Anion Gap BUN Creatinine Estimated GFR POC Glucose 113 H 117 H 131 H Random Glucose Lactic Acid Calcium Prot Corrected Calcium Total Bilirubin AST ALT Alkaline Phosphatase Total Protein Albumin Prealbumin Random Vancomycin MTS Gel Crossmatch Bld Prod Order Comment 12/19/17 12/19/17 12/19/17 09:11 10:04 10:55 WBC RBC Hgb Hct MCV MCH MCHC RDW Plt Count MPV Prelim Diff (Auto) Neut % (Auto) Lymph % (Auto) [place] % (Auto) Eos % (Auto) Baso % (Auto) Neut # (Auto) Lymph # (Auto) [place] # (Auto) Eos # (Auto) Baso # (Auto) WBC Differential Seg Neuts % (Manual) Band Neuts % (Manual) Lymphocytes % (Manual) Monocytes % (Manual) Metamyelocytes % (Man) Myelocytes % (Man) Promyelocytes % (Man) Abs Neuts (Manual) Nucleated RBCs/100 WBC Differential Comment Toxic Granulation Toxic Vacuolation Dohle Bodies Platelet Estimate Platelet Morphology RBC Morphology Puncture Site Patient Temperature O2 Saturation ABG pH ABG pCO2 ABG pO2 ABG HCO3 ABG O2 Content ABG Base Excess ABG Methemoglobin Hemoglobin Carboxyhemoglobin O2 Delivery Device Vent Setting Inspired O2 Critical Value Sodium Potassium Chloride Carbon Dioxide Anion Gap BUN Creatinine Estimated GFR POC Glucose 119 H 109 Random Glucose Lactic Acid Calcium Prot Corrected Calcium Total Bilirubin AST ALT Alkaline Phosphatase Total Protein Albumin Prealbumin Random Vancomycin MTS Gel Crossmatch See Detail Bld Prod Order Comment Result Diagrams: 12/19/17 05:00 12/19/17 05:00 Microbiology: Microbiology 12/15/17 06:30 Aerobic Blood Culture - Preliminary Blood - Peripheral No growth in 4 days Anaerobic Blood Culture - Preliminary No growth in 4 days 12/15/17 06:45 Aerobic Blood Culture - Preliminary Blood - Peripheral No growth in 4 days Anaerobic Blood Culture - Preliminary No growth in 4 days Procedures: 12/18/2017: I&D of sacrum and thigh, wound VAC change 12/15/2017: Endotracheal intubation 12/15/2017: Left subclavian central line placement 12/15/2017: NGT placement Assessment and Plan - Disease Oriented Problem List (1) Septic shock with acute organ dysfunction due to anaerobic bacteria (2) Acute respiratory failure (3) Type 2 diabetes mellitus with hyperosmolar nonketotic hyperglycemia (4) Necrotizing fasciitis (5) MARIO (acute kidney injury) (6) Lactic acidosis - Symptom Scale (1) Pain 0-10 Scale: Unable to quantify (2) Debility 0-10 Scale: Unable to quantify Pertinent Non-Medical Issues: Psychosocial: Originally from [place]. Currently . Spiritual: No zoroastrian affiliations. Legal: Per [place] statutes, in the absence of written advanced directives health care proxy decision making will fall to the patient's , Tyrone. Ethical issues impacting care: No known ethical issues impacting care at this time. Important Contacts: Tyrone Middleton, : [phone] Sister Linette Lebron , Prognosis: Patient is critically ill and in septic shock with necrotizing fasciitis secondary to a chronic sacral decubitus. Upon arrival to the ED, the patient was hyperglycemic with a blood glucose of 610, severely dehydrated and in profound shock. She is intubated on mechanical ventilation requiring pressor support status post wide excision of the involved soft tissue. Patient will require further debridement in the future. She remains hemodynamically unstable and critically ill. Very high risk for further complications, continued decline and . Code Status: Full Code Plan: * CODE STATUS: FULL CODE * HEALTHCARE DECISION-MAKING: Patient lacks insight and judgment related to her complicated clinical condition. It is unclear if she will regain capacity for medical decision-making. Per [place] statutes, in the absence of written advanced directives healthcare proxy decision making falls to the patient's , Tyrone Middleton. * GOALS OF CARE: Patient's verbalizing aggressive goals stating, "I think she would want everything done to live. Besides, it is too early to know. She was like this the last time she was in the hospital too." Has been requests we do "everything"we can to keep her alive. is supported by patient's family, Sister Linette and patient's mother to visit patient from [place] in the incoming days. * Palliative care contact information was provided to the patient's and sister. * Symptom management: Pain: Multifactoral. Patient has a long history of chronic conditions. She is currently sedated with fentanyl and propofol. Possible contributing factors include severe peripheral arterial disease, recent BKA, peripheral neuropathy, sepsis, necrotizing fasciitis, invasive lines, immobility. No recommendations at this time. We will continue to monitor. Debility: Patient with uncontrolled diabetes with severe peripheral arterial disease and smoking. Patient has had several hospitalizations/ED visits in the past year. 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 Patient went to live with her family in [place] after her last hospitalization but returned to [place] in the past few weeks. Patient's states she is alone much of the time because he works so much. He states she has a history of non-compliance with her medical regimen and is no longer able to care for herself at home. * Palliative care will continue to follow this patient throughout her hospitalization to establish trust, assist with symptom management and clarification of medical treatment goals. Time Spent Total Floor Time (mins): 32 (Total time to include review of medical records, physical exam, telephone conversation with patient's Sister Linette, case discussion with bedside RN and attending.) >50% Time in Counseling or Coordination of Care: Yes (Total visit time = 32 minutes; > 50% spent counseling/coordinating care) Attestation Attestation: To help prompt me to consider important information that might be impacting today's encounter and assessment, information from prior notes written by myself or my colleagues may have been "brought forward" into today's note. My signature on this note, however, is an attestation that I personally performed the exam, history, and/or decision-making noted today, and, unless otherwise indicated, the interactions with patient, family, and staff as well as the review of records all occurred today. I also attest that the listed assessment and stated plan reflect my best clinical judgment today based on the combination of historical information, prior notes, and today's exam/ interactions. When time spent is documented, it refers only to time spent today by the signer, or if indicated, combined time spent today by collaborating physician/nurse practitioner.
[2017-12-19] MEDS: Insulin NovoLIN Regular Correctional Sugar Inj SQ SCH ×3 (12:18→19:57)
--- NOTE | 2017-12-19 15:07 | ECG ---
Date Performed: 12/17/2017 Time Performed: 15:17:50 PTAGE: 52 years EKG: Possible ectopic atrial rhythm with frequent PACs. Poor R wave progression - probable [place] l variant Inferior/lateral T wave changes are nonspecific Generalized low QRS voltages Borderline ECG PREVIOUS TRACING : 12/17/2017 15.11 DOCTOR: Colby Virgen Interpretating Date/Time 12/19/2017 15:06:33
[2017-12-19 15:56] LABS: Baso # (Auto) 0.1 th/mm3 (0.0-0.2); Baso % (Auto) 0.4 % (0.0-2.0); Eos # (Auto) 0.1 th/mm3 (0.0-0.4); Eos % (Auto) 0.3 % (0.0-4.0); Hematocrit 32.2 % (35.0-46.0); Lymph # (Auto) 2.4 th/mm3 (1.0-4.8); Lymph % (Auto) 11.8 % (9.0-44.0); Mean Corpuscular HGB Conc 34.2 % (32.0-36.0); Mean Corpuscular Hemoglobin 30.1 pg (27.0-34.0); Mean Corpuscular Volume 88.2 fL (80.0-100.0); Mean Platelet Volume 7.9 fL (7.0-11.0); Mono # (Auto) 0.3 th/mm3 (0.0-0.9); Mono % (Auto) 1.4 % (0.0-8.0); Neut # (Auto) 17.4 th/mm3 (1.8-7.7); Neut % (Auto) 86.1 % (16.0-70.0); Platelet Count 82 th/mm3 (150-450); Red Blood Count 3.65 mil/mm3 (4.00-5.30); Red Cell Distribution Width 16.5 % (11.6-17.2); White Blood Count 20.2 th/mm3 (4.0-11.0)
[2017-12-19 16:41] LABS: Eosinophils 1 % (0-4); Lymphocytes 13 % (9-44); Monocytes 3 % (0-8); Ovalocytes 1+; Toxic Granulation 1+
[2017-12-19] MEDS: Phenylephrine Inj 40 MG in Dextrose 5% in Water Inj 496 ML IV.CONT PRN ×2 (18:07)
[2017-12-20] MEDS: Dextrose 5%/Lactated Ringer's 1,000 ML IV.CONT SCH ×4 (00:40→23:46)
[2017-12-20] MEDS: Oral Hygiene Kit OROPHARYNG SCH ×5 (00:41→23:47)
[2017-12-20] MEDS: Insulin NovoLIN Regular Correctional Sugar Inj SQ SCH ×7 (00:55→23:46)
[2017-12-20] MEDS: Chlorhexidine Gluconate 2% 1 Pack (2 Cloths) TOPICAL SCH ×2 (03:16)
[2017-12-20] MEDS: Propofol 1000 mg/100 ml Inj 1,000 MG/100 ML BOTTLE IV.CONT PRN ×3 (03:26→20:09)
[2017-12-20] MEDS: Clindamycin 900 mg/NS Premix 900 MG/50 ML PIGGYBACK IV.SIG SCH ×3 (03:53→19:48)
[2017-12-20] MEDS ORDERED: Chlorhexidine Gluconate 2% 1 Pack (2 Cloths) TOPICAL PRN (04:00)
[2017-12-20 04:45] LABS: Baso # (Auto) 0.1 th/mm3 (0.0-0.2); Baso % (Auto) 0.6 % (0.0-2.0); Eos # (Auto) 0.1 th/mm3 (0.0-0.4); Eos % (Auto) 0.4 % (0.0-4.0); Hematocrit 32.6 % (35.0-46.0); Hemoglobin 11.2 gm/dL (11.6-15.3); Lymph # (Auto) 3.7 th/mm3 (1.0-4.8); Lymph % (Auto) 18.4 % (9.0-44.0); Mean Corpuscular HGB Conc 34.2 % (32.0-36.0); Mean Corpuscular Hemoglobin 29.7 pg (27.0-34.0); Mean Corpuscular Volume 86.9 fL (80.0-100.0); Mean Platelet Volume 8.1 fL (7.0-11.0); Mono # (Auto) 0.2 th/mm3 (0.0-0.9); Mono % (Auto) 1.1 % (0.0-8.0); Neut # (Auto) 16.1 th/mm3 (1.8-7.7); Neut % (Auto) 79.5 % (16.0-70.0); Platelet Count 82 th/mm3 (150-450); Red Blood Count 3.75 mil/mm3 (4.00-5.30); Red Cell Distribution Width 16.2 % (11.6-17.2); White Blood Count 20.2 th/mm3 (4.0-11.0)
[2017-12-20 05:11] LABS: Albumin 1.3 g/dL (3.4-5.0); Alkaline Phosphatase 314 U/L (45-117); Anion Gap 13 meq/L (5-15); Aspartate Aminotransferase 10 U/L (15-37); Blood Urea Nitrogen 23 mg/dL (7-18); Calcium 7.3 mg/dL (8.5-10.1); Carbon Dioxide 19.2 meq/L (21.0-32.0); Chloride 106 meq/L (98-107); Glomerular Filtration Rate 54 mL/min (>89); Glucose,Random 195 mg/dL (74-106); Potassium 3.4 meq/L (3.5-5.1); Sodium 138 meq/L (136-145); Total Protein 6.3 g/dL (6.4-8.2)
[2017-12-20] MEDS: Phenylephrine Inj 40 MG in Dextrose 5% in Water Inj 496 ML IV.CONT PRN ×4 (05:22→18:57)
[2017-12-20] MEDS: Potassium Chlor 40 mEq Premix 40 MEQ/100 ML PIGGYBACK IV.SIG PRN (06:30)
[2017-12-20 07:44] LABS: Lymphocytes 18 % (9-44); Metamyelocytes 2 % (0-1); Monocytes 1 % (0-8)
[2017-12-20 07:45] LABS: Platelet Morphology Normal (Normal); RBC Morphology Normal (Normal)
--- NOTE | 2017-12-20 09:27 | P.PNCC ---
Subjective Subjective Remarks/Hospital Course: This 52-year-old woman with long-standing uncontrolled diabetes mellitus and severe peripheral arterial disease related to a long-term heavy smoking history was found down at her home and initial blood glucose was 610. Her lower back and buttocks was exquisitely tender and a mid line stage IV sacral decubitus was oozing purulent material and inflamed and the surrounding soft tissue. White count was not elevated but 90% neutrophils. Temperature 97 degrees. Moderately encephalopathic though conversant. X-rays revealed no fractures in the pelvis but CAT scan demonstrated extensive subcutaneous air emanating in both directions left and right from the mid sacral region. This is clearly necrotizing fasciitis or some other gas-forming infection and the woman is critically ill. She received vancomycin, Zosyn, and clindamycin antibiotic therapy as quickly as possible and was transferred to the ICU for ongoing resuscitation. Because of worsening hemodynamic stability she required intubation and mechanical ventilation followed by central line placement on arrival to the ICU. Insulin drip infusion was started in the emergency department and glucose had declined into the low 400s. She was not in ketoacidosis but lactic acid was elevated at 3.1. General surgery and orthopedic surgery were consulted for recommendations and it was felt that this woman was too unstable to tolerate an operative procedure immediately. We continue her ongoing resuscitation and trial in the ICU at this stage. 12/16: Following aggressive resuscitation yesterday for the treatment of severe hyperglycemia, septic shock, respiratory failure, metabolic acidosis, acute kidney injury, the patient went to the operating room with an extensive wide debridement bilateral gluteal and left thigh soft tissue and muscle. Primary antibiotic coverage at this point is vancomycin, cefepime, clindamycin. The patient started to make urine late yesterday afternoon and has continued to acceptable output since. Lactic acidosis is 2.0 this morning but metabolic acidosis persists despite bicarb drip. She remains on vasopressor support and hemodynamically unstable. 12/17: s/p debridement of large nec fasc wound. remains in shock today. also very hypoglycemic requiring multiple D50 amps overnight. 12/18: back in worsening shock. vasopressor support higher. required 2L crystalloid overnight and additional 1L and 500cc albumin today. ivc completely flat on bedside echo. LVEF hyperdynamic. no pericardial effusion. spoken with gen surg. plan to go back early to eval for worsening necrosis. fio2 also up to 100% and peep 10- hypoxic, likely early ARDS. 12/19: clinically doing better. still in shock on vasopressors, but requirements are lower and lactate cleared. Cr slowly uptrending. SVV still 19% today and appears to be volume responsive. gen surgery ordered 2 units prbc for falling hgb in the setting of blood loss with surgical intervention yesterday. fio2 improving. glycemic control also improving. 12/20: Markedly impaired oxygenation persists. Still requiring elevated end expiratory pressure. Nutritional support continues but she remains catabolic. It will be difficult to keep up with her nutritional needs. Objective Vital Signs / I&O: Vital Signs 12/19/17 09:30 12/19/17 09:45 12/19/17 10:00 Temperature 98.8 F 98.8 F 99.0 F Pulse Rate 105 H 104 H 103 H Respiratory Rate 22 22 22 Pulse Oximetry 94 L 94 L 94 L 12/19/17 10:15 12/19/17 10:30 12/19/17 10:45 Temperature 99.0 F 99.0 F 99.0 F Pulse Rate 106 H 103 H 100 H Respiratory Rate 22 22 22 Pulse Oximetry 94 L 93 L 93 L 12/19/17 11:00 12/19/17 11:15 12/19/17 11:30 Temperature 99.0 F 99.0 F 99.0 F Pulse Rate 103 H 112 H 110 H Respiratory Rate 22 22 22 Pulse Oximetry 95 94 L 93 L 12/19/17 11:45 12/19/17 12:00 12/19/17 12:15 Temperature 99.0 F 99.0 F 99.0 F Pulse Rate 110 H 103 H 97 H Respiratory Rate 22 22 22 Pulse Oximetry 93 L 93 L 95 12/19/17 12:30 12/19/17 12:38 12/19/17 12:45 Temperature 99.0 F 99.0 F Pulse Rate 100 H 106 H 116 H Respiratory Rate 22 23 22 Pulse Oximetry 94 L 94 L 94 L 12/19/17 12:52 12/19/17 13:00 12/19/17 13:13 Temperature 99.0 F 97.2 F L 98.6 F Pulse Rate 112 H 113 H 113 H Respiratory Rate 22 22 22 Pulse Oximetry 96 95 94 L 12/19/17 13:15 12/19/17 13:30 12/19/17 13:45 Temperature 98.4 F 98.2 F 98.2 F Pulse Rate 111 H 115 H 112 H Respiratory Rate 22 22 20 Pulse Oximetry 94 L 92 L 93 L 12/19/17 14:00 12/19/17 14:08 12/19/17 14:15 Temperature 98.2 F 98.4 F 98.2 F Pulse Rate 110 H 107 H 104 H Respiratory Rate 22 22 22 Pulse Oximetry 92 L 94 L 91 L 12/19/17 14:30 12/19/17 14:45 12/19/17 15:00 Temperature 98.2 F 98.4 F 98.4 F Pulse Rate 105 H 105 H 114 H Respiratory Rate 22 22 22 Pulse Oximetry 92 L 91 L 93 L 12/19/17 15:15 12/19/17 15:30 12/19/17 15:32 Temperature 98.4 F 98.4 F Pulse Rate 101 H 102 H Respiratory Rate 22 22 22 Pulse Oximetry 91 L 93 L 93 L 12/19/17 15:34 12/19/17 15:45 12/19/17 16:00 Temperature 98.4 F 98.4 F Pulse Rate 100 H 112 H 117 H Respiratory Rate 22 22 22 Pulse Oximetry 92 L 92 L 12/19/17 16:15 12/19/17 16:30 12/19/17 16:45 Temperature 98.6 F 98.6 F 98.6 F Pulse Rate 116 H 111 H 108 H Respiratory Rate 22 22 22 Pulse Oximetry 91 L 91 L 91 L 12/19/17 17:00 12/19/17 17:15 12/19/17 17:30 Temperature 98.8 F 98.8 F 98.8 F Pulse Rate 114 H 149 H 108 H Respiratory Rate 22 22 22 Pulse Oximetry 93 L 89 L 90 L 12/19/17 17:45 12/19/17 18:00 12/19/17 18:15 Temperature 99.0 F 99.0 F 98.8 F Pulse Rate 116 H 100 H 103 H Respiratory Rate 22 22 22 Pulse Oximetry 91 L 90 L 96 12/19/17 18:30 12/19/17 18:45 12/19/17 19:00 Temperature 99.0 F 98.8 F 98.8 F Pulse Rate 94 H 93 H 91 H Respiratory Rate 22 22 22 Pulse Oximetry 93 L 93 L 93 L 12/19/17 19:15 12/19/17 19:30 12/19/17 19:36 Temperature 98.8 F 98.6 F Pulse Rate 90 90 89 Respiratory Rate 22 22 22 Pulse Oximetry 94 L 92 L 94 L 12/19/17 19:45 12/19/17 20:00 12/19/17 20:15 Temperature 98.4 F 98.6 F 98.6 F Pulse Rate 87 92 H 112 H Respiratory Rate 22 22 22 Pulse Oximetry 95 93 L 94 L 12/19/17 20:30 12/19/17 20:45 12/19/17 21:00 Temperature 98.6 F 98.4 F 98.4 F Pulse Rate 116 H 101 H 94 H Respiratory Rate 37 H 22 22 Pulse Oximetry 95 93 L 94 L 12/19/17 21:15 12/19/17 21:30 12/19/17 21:45 Temperature 98.4 F 98.4 F 98.4 F Pulse Rate 89 87 85 Respiratory Rate 22 22 22 Pulse Oximetry 95 95 95 12/19/17 22:00 12/19/17 22:15 12/19/17 22:30 Temperature 98.4 F 98.4 F 98.4 F Pulse Rate 84 84 82 Respiratory Rate 22 22 22 Pulse Oximetry 95 95 95 12/19/17 22:45 12/19/17 23:00 12/19/17 23:15 Temperature 98.4 F 98.4 F 98.4 F Pulse Rate 81 82 79 Respiratory Rate 22 22 22 Pulse Oximetry 95 95 95 12/19/17 23:30 12/19/17 23:45 12/20/17 00:00 Temperature 98.4 F 98.4 F 98.4 F Pulse Rate 79 80 81 Respiratory Rate 22 22 22 Pulse Oximetry 95 95 95 12/20/17 00:15 12/20/17 00:30 12/20/17 00:45 Temperature 98.4 F 98.4 F 98.6 F Pulse Rate 78 77 84 Respiratory Rate 22 22 22 Pulse Oximetry 95 95 94 L 12/20/17 01:00 12/20/17 01:15 12/20/17 01:30 Temperature 98.6 F 98.4 F 98.4 F Pulse Rate 81 79 79 Respiratory Rate 22 22 22 Pulse Oximetry 94 L 95 95 12/20/17 01:45 12/20/17 02:00 12/20/17 02:15 Temperature 98.4 F 98.4 F 98.4 F Pulse Rate 79 77 90 Respiratory Rate 22 22 22 Pulse Oximetry 95 95 93 L 12/20/17 02:30 12/20/17 02:36 12/20/17 02:45 Temperature 98.4 F 98.6 F Pulse Rate 92 H 97 H Respiratory Rate 22 22 Pulse Oximetry 91 L 95 95 12/20/17 03:00 12/20/17 03:15 12/20/17 03:30 Temperature 98.6 F 98.6 F 98.6 F Pulse Rate 93 H 96 H 94 H Respiratory Rate 22 22 22 Pulse Oximetry 95 94 L 96 12/20/17 03:45 12/20/17 04:00 12/20/17 04:15 Temperature 98.4 F 98.6 F 98.4 F Pulse Rate 97 H 98 H 103 H Respiratory Rate 22 22 22 Pulse Oximetry 96 94 L 92 L 12/20/17 04:30 12/20/17 04:40 12/20/17 04:45 Temperature 98.6 F 98.2 F Pulse Rate 95 H 103 H Respiratory Rate 22 24 22 Pulse Oximetry 92 L 95 96 12/20/17 05:00 12/20/17 08:19 Temperature 98.2 F Pulse Rate 97 H Respiratory Rate 22 22 Pulse Oximetry 97 97 Intake & Output 12/19/17 12/20/17 12/20/17 18:59 06:59 18:59 Intake Total 3240.8 / 3240.8 1979 / 1979 Output Total 3750 / 3750 3000 / 3000 Balance -509.2 / -509.2 -1020 / -1020 Weight 80.1 kg Intake: IV 2300.8 / 2300.8 1800 / 1800 D5W/LR Inj 1,000 ML @ 75 mls/hr 850 / 850 1000 / 1000 IV.CONT .[id number] [facility] Rx#: [id number] NovoLIN R (IV Infusion) 100 17.3 / 17.3 UNIT In NS Inj 99 ML @ Per Protocol IV.CONT TITRATE PRN Rx #:[id number] Primacor Inj 20 MG In NS Inj 80 89.5 / 89.5 ML @ 0.25 MCG/KG/MIN 5.38 mls/ hr IV.CONT .[id number] [facility] Rx#: [id number] Neosynephrine Inj 40 MG In D5W 500 / 500 Inj 496 ML @ 40 MCG/MIN 30 mls/ hr IV.CONT TITRATE PRN Rx#: [id number] Diprivan 1000 mg/100 ml Inj 1, 200 / 200 100 / 100 000 mg In 100 ml @ 5 MCG/KG/MIN 1.837 mls/hr IV.CONT TITRATE PRN Rx#:[id number] Pitressin Inj 40 UNIT In NS Inj 100 / 100 98 ML @ 0.04 UNITS/MIN 6 mls/ hr IV.CONT CONT [facility] Rx#: [id number] Maxipime Inj 2,000 MG In NS Inj 100 / 100 100 / 100 100 ML @ 200 mls/hr IV.SIG Q12H [facility] Rx#:[id number] Cleocin 900 mg/NS Premix 900 mg 50 / 50 100 / 100 In 50 ml @ 100 mls/hr IV.SIG Q8H [facility] Rx#:[id number] Levophed Inj 4 MG In NS Inj 246 190 / 190 ML @ 2 MCG/MIN 7.5 mls/hr IV. SIG TITRATE PRN Rx#:[id number] Vancomycin Inj 1,500 MG In NS 515 / 515 Inj 500 ML @ 250 mls/hr IV.SIG Q36H [facility] Rx#:[id number] fentaNYL 10 mcg/mL Premix Drip 189 / 189 2,500 mcg In 250 ml @ 50 MCG/HR 5 mls/hr IV.SIG TITRATE PRN Rx #:[id number] Tube Feeding 140 / 140 180 / 180 Intake (Blood Product) Amt 800 / 800 Rbc As-3 Leukoreduced Unit 400 / 400 [id number] Rbc As-3 Leukoreduced Unit 400 / 400 [id number] Output: Urine Amount (Catheter) 2450 / 2450 1800 / 1800 1 2450 / 2450 1800 / 1800 Gastric Drainage 0 / 0 Nasogastric Tube 0 / 0 Wound Vac Amount 1300 / 1300 1200 / 1200 Posterior Sacrum 1300 / 1300 1200 / 1200 Other: Mode Setting Posterior Sacrum Continuous Continuous Date of Last Bowel Movement 12/18/17 12/20/17 # Bowel Movements 0 3 Result Diagrams: 12/20/17 04:30 12/20/17 04:30 Objective Remarks: General: Ill-appearing middle-aged woman, intubated and sedated Head: Atraumatic, normal, edentulous Neck: Supple, orotracheal intubation Lungs: equal chest rise. Scattered rhonchi. Prvc. fio2 50%. peep 12. Heart: tachycardic rate and regular rhythm. no JVD. Abdomen: Soft, no guarding, no peritoneal irritation. Back: Wound VAC in place over lower lumbar region there is a moderate erythema to the skin over the pelvis and buttocks. Midline sacral stage IV decubitus has been debrided. Extremities: Tepid, adequately perfused, status post below-knee amputation right side, necrotic ulceration over several toes left foot Neurological: Intubated and sedated she moves 4 limbs to stimulation. Pupils responsive. Cough, gag intact. Assessment and Plan - Problem List (1) Septic shock with acute organ dysfunction due to anaerobic bacteria Code(s): A41.4 - Sepsis due to anaerobes; R65.21 - Severe sepsis with septic shock Status: Acute (2) Acute respiratory failure Code(s): J96.00 - Acute respiratory failure, unspecified whether with hypoxia or hypercapnia Status: Acute (3) Necrotizing fasciitis Code(s): M72.6 - Necrotizing fasciitis Status: Acute (4) Type 2 diabetes mellitus with hyperosmolar nonketotic hyperglycemia Code(s): E11.01 - Type 2 diabetes mellitus with hyperosmolarity with coma Status: Acute (5) MARIO (acute kidney injury) Code(s): N17.9 - Acute kidney failure, unspecified Status: Acute (6) Lactic acidosis Code(s): E87.2 - Acidosis Status: Acute - Assessment and Plan Plan: Assessment: 52yF with large necrotizing soft tissue infection of the lower back and sacrum complicated by septic shock and multiorgan dysfunction. Continued vasopressors, ivf, and antibiotics. plan for re-evaluation surgically on Sunday. remains critically ill in ongoing shock. Plan: Neurological Acute metabolic encephalopathy -Sedation with propofol -Analgesia with fentanyl -Encephalopathy largely due to sepsis and hyperglycemia - RASS goal -2. Cardiovascular Septic Shock- persistent Myocardial dysfunction secondary to septic shock -levophed, vasopresin for goal map > 65 mmHg. - d/c milrinone today. Flowtrack suggesting CI > 3.5. if she needs additional inotropic therapy may benefit from epinephrine or dobutamine. -2 units of prbc for ongoing blood loss and anemia will help with intravascular volume expansion as well. -Follow acid-base balance closely Respiratory Acute hypoxic and hypercarbic respiratory failure- persistent -Intubation and mechanical ventilation -Bronchodilators - HOB elevated - vent bundle - wean fio2 for goal spo2 > 90% - leave PEEP at 12. - no weaning of mechanical ventilation until shock improves -Repeat chest x-ray Endocrinology Diabetes Severe hypoglycemia - hold levemir - transition from insulin drip to q4h med scale SSI. Hematology/Infectious Disease Septic Shock Necrotizing soft tissue infection -Obvious infection. -Follow white count and platelet count closely - abx per ID. continue clindamycin until third debridement rules out further extension of necrosis. (second debridement revealed ongoing necrosis) - daily cbc GI Acute protein calorie malnutrition- severe - NPO while in shock - NG tube to LIWS - prealbumin 5 on 12/18. severely malnourished. - daily bmp, mg, phos Acute kidney injury -Tristan required for hourly urine output -High risk for further deterioration in renal function -Needs Tristan at this time to protect perineal region, removed shortly. Prophylaxis -Pepcid for GI ulcer prophylaxis -SCDs for DVT prophylaxis -Hold chemical DVT prophylaxis until surgical decisions are made Lines: Left subclavian central venous line placed 12/15 Overall impression: This woman is critically ill and in septic shock with necrotizing fasciitis emanating from a deep chronic sacral decubitus. She remains quite unstable with persistent ivf resuscitative requirement. Critical care 45 minutes
[2017-12-20] MEDS: Senna/Docusate Sodium 8.6/50 MG Tablet PO SCH ×2 (10:00→20:04)
[2017-12-20] MEDS: Mupirocin 2% Nasal Oint Topical Syringe EACH NARE SCH ×2 (10:00→20:03)
[2017-12-20] MEDS: Famotidine PF Inj 20 MG/2 ML Vial IV.PUSH SCH ×2 (10:00→20:35)
[2017-12-20] MEDS: Chlorhexidine 0.12% Oral Kit 15 ML UDC OROPHARYNG SCH ×2 (10:00→19:50)
--- NOTE | 2017-12-20 11:29 | P.PNGS ---
Subjective Interval history: Intubated Continues to be on pressors Any RODGERS at bedside Physical Exam Vital signs: Vital Signs 12/19/17 11:30 12/19/17 11:45 12/19/17 12:00 Temperature 99.0 F 99.0 F 99.0 F Pulse Rate 110 H 110 H 103 H Respiratory Rate 22 22 22 Pulse Oximetry 93 L 93 L 93 L 12/19/17 12:15 12/19/17 12:30 12/19/17 12:38 Temperature 99.0 F 99.0 F Pulse Rate 97 H 100 H 106 H Respiratory Rate 22 22 23 Pulse Oximetry 95 94 L 94 L 12/19/17 12:45 12/19/17 12:52 12/19/17 13:00 Temperature 99.0 F 99.0 F 97.2 F L Pulse Rate 116 H 112 H 113 H Respiratory Rate 22 22 22 Pulse Oximetry 94 L 96 95 12/19/17 13:13 12/19/17 13:15 12/19/17 13:30 Temperature 98.6 F 98.4 F 98.2 F Pulse Rate 113 H 111 H 115 H Respiratory Rate 22 22 22 Pulse Oximetry 94 L 94 L 92 L 12/19/17 13:45 12/19/17 14:00 12/19/17 14:08 Temperature 98.2 F 98.2 F 98.4 F Pulse Rate 112 H 110 H 107 H Respiratory Rate 20 22 22 Pulse Oximetry 93 L 92 L 94 L 12/19/17 14:15 12/19/17 14:30 12/19/17 14:45 Temperature 98.2 F 98.2 F 98.4 F Pulse Rate 104 H 105 H 105 H Respiratory Rate 22 22 22 Pulse Oximetry 91 L 92 L 91 L 12/19/17 15:00 12/19/17 15:15 12/19/17 15:30 Temperature 98.4 F 98.4 F 98.4 F Pulse Rate 114 H 101 H 102 H Respiratory Rate 22 22 22 Pulse Oximetry 93 L 91 L 93 L 12/19/17 15:32 12/19/17 15:34 12/19/17 15:45 Temperature 98.4 F Pulse Rate 100 H 112 H Respiratory Rate 22 22 22 Pulse Oximetry 93 L 92 L 12/19/17 16:00 12/19/17 16:15 12/19/17 16:30 Temperature 98.4 F 98.6 F 98.6 F Pulse Rate 117 H 116 H 111 H Respiratory Rate 22 22 22 Pulse Oximetry 92 L 91 L 91 L 12/19/17 16:45 12/19/17 17:00 12/19/17 17:15 Temperature 98.6 F 98.8 F 98.8 F Pulse Rate 108 H 114 H 149 H Respiratory Rate 22 22 22 Pulse Oximetry 91 L 93 L 89 L 12/19/17 17:30 12/19/17 17:45 12/19/17 18:00 Temperature 98.8 F 99.0 F 99.0 F Pulse Rate 108 H 116 H 100 H Respiratory Rate 22 22 22 Pulse Oximetry 90 L 91 L 90 L 12/19/17 18:15 12/19/17 18:30 12/19/17 18:45 Temperature 98.8 F 99.0 F 98.8 F Pulse Rate 103 H 94 H 93 H Respiratory Rate 22 22 22 Pulse Oximetry 96 93 L 93 L 12/19/17 19:00 12/19/17 19:15 12/19/17 19:30 Temperature 98.8 F 98.8 F 98.6 F Pulse Rate 91 H 90 90 Respiratory Rate 22 22 22 Pulse Oximetry 93 L 94 L 92 L 12/19/17 19:36 12/19/17 19:45 12/19/17 20:00 Temperature 98.4 F 98.6 F Pulse Rate 89 87 92 H Respiratory Rate 22 22 22 Pulse Oximetry 94 L 95 93 L 12/19/17 20:15 12/19/17 20:30 12/19/17 20:45 Temperature 98.6 F 98.6 F 98.4 F Pulse Rate 112 H 116 H 101 H Respiratory Rate 22 37 H 22 Pulse Oximetry 94 L 95 93 L 12/19/17 21:00 12/19/17 21:15 12/19/17 21:30 Temperature 98.4 F 98.4 F 98.4 F Pulse Rate 94 H 89 87 Respiratory Rate 22 22 22 Pulse Oximetry 94 L 95 95 12/19/17 21:45 12/19/17 22:00 12/19/17 22:15 Temperature 98.4 F 98.4 F 98.4 F Pulse Rate 85 84 84 Respiratory Rate 22 22 22 Pulse Oximetry 95 95 95 12/19/17 22:30 12/19/17 22:45 12/19/17 23:00 Temperature 98.4 F 98.4 F 98.4 F Pulse Rate 82 81 82 Respiratory Rate 22 22 22 Pulse Oximetry 95 95 95 12/19/17 23:15 12/19/17 23:30 12/19/17 23:45 Temperature 98.4 F 98.4 F 98.4 F Pulse Rate 79 79 80 Respiratory Rate 22 22 22 Pulse Oximetry 95 95 95 12/20/17 00:00 12/20/17 00:15 12/20/17 00:30 Temperature 98.4 F 98.4 F 98.4 F Pulse Rate 81 78 77 Respiratory Rate 22 22 22 Pulse Oximetry 95 95 95 12/20/17 00:45 12/20/17 01:00 12/20/17 01:15 Temperature 98.6 F 98.6 F 98.4 F Pulse Rate 84 81 79 Respiratory Rate 22 22 22 Pulse Oximetry 94 L 94 L 95 12/20/17 01:30 12/20/17 01:45 12/20/17 02:00 Temperature 98.4 F 98.4 F 98.4 F Pulse Rate 79 79 77 Respiratory Rate 22 22 22 Pulse Oximetry 95 95 95 12/20/17 02:15 12/20/17 02:30 12/20/17 02:36 Temperature 98.4 F 98.4 F Pulse Rate 90 92 H Respiratory Rate 22 22 Pulse Oximetry 93 L 91 L 95 12/20/17 02:45 12/20/17 03:00 12/20/17 03:15 Temperature 98.6 F 98.6 F 98.6 F Pulse Rate 97 H 93 H 96 H Respiratory Rate 22 22 22 Pulse Oximetry 95 95 94 L 12/20/17 03:30 12/20/17 03:45 12/20/17 04:00 Temperature 98.6 F 98.4 F 98.6 F Pulse Rate 94 H 97 H 98 H Respiratory Rate 22 22 22 Pulse Oximetry 96 96 94 L 12/20/17 04:15 12/20/17 04:30 12/20/17 04:40 Temperature 98.4 F 98.6 F Pulse Rate 103 H 95 H Respiratory Rate 22 22 24 Pulse Oximetry 92 L 92 L 95 12/20/17 04:45 12/20/17 05:00 12/20/17 08:19 Temperature 98.2 F 98.2 F Pulse Rate 103 H 97 H Respiratory Rate 22 22 22 Pulse Oximetry 96 97 97 Intake & Output 12/19/17 12/20/17 12/20/17 18:59 06:59 18:59 Intake Total 3240.8 / 3240.8 1979 / 1979 Output Total 3750 / 3750 3000 / 3000 Balance -509.2 / -509.2 -1020 / -1020 Weight 80.1 kg Intake: IV 2300.8 / 2300.8 1800 / 1800 D5W/LR Inj 1,000 ML @ 75 mls/hr 850 / 850 1000 / 1000 IV.CONT .[id number] [facility] Rx#: [id number] NovoLIN R (IV Infusion) 100 17.3 / 17.3 UNIT In NS Inj 99 ML @ Per Protocol IV.CONT TITRATE PRN Rx #:[id number] Primacor Inj 20 MG In NS Inj 80 89.5 / 89.5 ML @ 0.25 MCG/KG/MIN 5.38 mls/ hr IV.CONT .[id number] RICARDO Rx#: [id number] Neosynephrine Inj 40 MG In D5W 500 / 500 Inj 496 ML @ 40 MCG/MIN 30 mls/ hr IV.CONT TITRATE PRN Rx#: [id number] Diprivan 1000 mg/100 ml Inj 1, 200 / 200 100 / 100 000 mg In 100 ml @ 5 MCG/KG/MIN 1.837 mls/hr IV.CONT TITRATE PRN Rx#:[id number] Pitressin Inj 40 UNIT In NS Inj 100 / 100 98 ML @ 0.04 UNITS/MIN 6 mls/ hr IV.CONT CONT [facility]ARDO Rx#: [id number] Maxipime Inj 2,000 MG In NS Inj 100 / 100 100 / 100 100 ML @ 200 mls/hr IV.SIG Q12H [facility] Rx#:[id number] Cleocin 900 mg/NS Premix 900 mg 50 / 50 100 / 100 In 50 ml @ 100 mls/hr IV.SIG Q8H [facility] Rx#:[id number] Levophed Inj 4 MG In NS Inj 246 190 / 190 ML @ 2 MCG/MIN 7.5 mls/hr IV. SIG TITRATE PRN Rx#:[id number] Vancomycin Inj 1,500 MG In NS 515 / 515 Inj 500 ML @ 250 mls/hr IV.SIG Q36H [facility] Rx#:[id number] fentaNYL 10 mcg/mL Premix Drip 189 / 189 2,500 mcg In 250 ml @ 50 MCG/HR 5 mls/hr IV.SIG TITRATE PRN Rx #:[id number] Tube Feeding 140 / 140 180 / 180 Intake (Blood Product) Amt 800 / 800 Rbc As-3 Leukoreduced Unit 400 / 400 [id number] Rbc As-3 Leukoreduced Unit 400 / 400 [id number] Output: Urine Amount (Catheter) 2450 / 2450 1800 / 1800 1 2450 / 2450 1800 / 1800 Gastric Drainage 0 / 0 Nasogastric Tube 0 / 0 Wound Vac Amount 1300 / 1300 1200 / 1200 Posterior Sacrum 1300 / 1300 1200 / 1200 Other: Mode Setting Posterior Sacrum Continuous Continuous Date of Last Bowel Movement 12/18/17 12/20/17 # Bowel Movements 0 3 Narrative: Intubated/Sedated Abd: soft; non tender Back wound vac in place with good seal - Urinary Catheter Management 1 Cath placed during this visit: yes Reason for continuing: Severe pressure ulcer/wound Insertion date: 12/15/17 Results - Labs 12/24/17 04:25 12/24/17 04:25 Laboratory Results - last 24 hr 12/15/17 12/18/17 12/19/17 16:51 08:24 10:55 WBC RBC Hgb Hct MCV MCH MCHC RDW Plt Count MPV Prelim Diff (Auto) Neut % (Auto) Lymph % (Auto) Lares % (Auto) Eos % (Auto) Baso % (Auto) Neut # (Auto) Lymph # (Auto) Lares # (Auto) Eos # (Auto) Baso # (Auto) WBC Differential Seg Neuts % (Manual) Band Neuts % (Manual) Lymphocytes % (Manual) Monocytes % (Manual) Eosinophils % (Manual) Metamyelocytes % (Man) Abs Neuts (Manual) Differential Comment Toxic Granulation Platelet Estimate Platelet Morphology RBC Morphology Ovalocytes Critical Value No Sodium Potassium Chloride Carbon Dioxide Anion Gap BUN Creatinine Estimated GFR POC Glucose Random Glucose Calcium Prot Corrected Calcium Total Bilirubin AST ALT Alkaline Phosphatase Total Protein Albumin Blood Type O Negative Antibody Screen Negative MTS Gel Crossmatch See Detail See Detail 12/19/17 12/19/17 12/19/17 12:08 15:06 15:21 WBC 20.2 H RBC 3.65 L Hgb 11.0 L D Hct 32.2 L MCV 88.2 D MCH 30.1 MCHC 34.2 RDW 16.5 Plt Count 82 L MPV 7.9 Prelim Diff (Auto) Slide review pending Neut % (Auto) 86.1 H Lymph % (Auto) 11.8 Lares % (Auto) 1.4 Eos % (Auto) 0.3 Baso % (Auto) 0.4 Neut # (Auto) 17.4 H Lymph # (Auto) 2.4 Lares # (Auto) 0.3 Eos # (Auto) 0.1 Baso # (Auto) 0.1 WBC Differential Manual diff final Seg Neuts % (Manual) 73 H Band Neuts % (Manual) 10 H Lymphocytes % (Manual) 13 Monocytes % (Manual) 3 Eosinophils % (Manual) 1 Metamyelocytes % (Man) Abs Neuts (Manual) 16.8 H Differential Comment . Toxic Granulation 1+ H Platelet Estimate Low L Platelet Morphology Enlarged H RBC Morphology Ovalocytes 1+ H Critical Value Sodium Potassium Chloride Carbon Dioxide Anion Gap BUN Creatinine Estimated GFR POC Glucose 142 H 168 H Random Glucose Calcium Prot Corrected Calcium Total Bilirubin AST ALT Alkaline Phosphatase Total Protein Albumin Blood Type Antibody Screen MTS Gel Crossmatch 12/19/17 12/19/17 12/20/17 16:03 19:49 00:49 WBC RBC Hgb Hct MCV MCH MCHC RDW Plt Count MPV Prelim Diff (Auto) Neut % (Auto) Lymph % (Auto) Lares % (Auto) Eos % (Auto) Baso % (Auto) Neut # (Auto) Lymph # (Auto) Lares # (Auto) Eos # (Auto) Baso # (Auto) WBC Differential Seg Neuts % (Manual) Band Neuts % (Manual) Lymphocytes % (Manual) Monocytes % (Manual) Eosinophils % (Manual) Metamyelocytes % (Man) Abs Neuts (Manual) Differential Comment Toxic Granulation Platelet Estimate Platelet Morphology RBC Morphology Ovalocytes Critical Value Sodium Potassium Chloride Carbon Dioxide Anion Gap BUN Creatinine Estimated GFR POC Glucose 225 H 286 H 223 H Random Glucose Calcium Prot Corrected Calcium Total Bilirubin AST ALT Alkaline Phosphatase Total Protein Albumin Blood Type Antibody Screen MTS Gel Crossmatch 12/20/17 12/20/17 12/20/17 03:31 04:30 04:30 WBC 20.2 H RBC 3.75 L Hgb 11.2 L Hct 32.6 L MCV 86.9 MCH 29.7 MCHC 34.2 RDW 16.2 Plt Count 82 L MPV 8.1 Prelim Diff (Auto) Slide review pending Neut % (Auto) 79.5 H Lymph % (Auto) 18.4 Lares % (Auto) 1.1 Eos % (Auto) 0.4 Baso % (Auto) 0.6 Neut # (Auto) 16.1 H Lymph # (Auto) 3.7 Lares # (Auto) 0.2 Eos # (Auto) 0.1 Baso # (Auto) 0.1 WBC Differential Manual diff final Seg Neuts % (Manual) 75 H Band Neuts % (Manual) 4 Lymphocytes % (Manual) 18 Monocytes % (Manual) 1 Eosinophils % (Manual) Metamyelocytes % (Man) 2 H Abs Neuts (Manual) 16.4 H Differential Comment . Toxic Granulation Platelet Estimate Low L Platelet Morphology Normal RBC Morphology Normal Ovalocytes Critical Value Sodium 138 Potassium 3.4 L Chloride 106 Carbon Dioxide 19.2 L Anion Gap 13 BUN 23 H Creatinine 1.06 H Estimated GFR 54 L POC Glucose 209 H Random Glucose 195 H Calcium 7.3 L* Prot Corrected Calcium 7.7 L Total Bilirubin 1.0 AST 10 L ALT Less than 6 L Alkaline Phosphatase 314 H Total Protein 6.3 L D Albumin 1.3 L Blood Type Antibody Screen MTS Gel Crossmatch 12/20/17 11:01 WBC RBC Hgb Hct MCV MCH MCHC RDW Plt Count MPV Prelim Diff (Auto) Neut % (Auto) Lymph % (Auto) Lares % (Auto) Eos % (Auto) Baso % (Auto) Neut # (Auto) Lymph # (Auto) Lares # (Auto) Eos # (Auto) Baso # (Auto) WBC Differential Seg Neuts % (Manual) Band Neuts % (Manual) Lymphocytes % (Manual) Monocytes % (Manual) Eosinophils % (Manual) Metamyelocytes % (Man) Abs Neuts (Manual) Differential Comment Toxic Granulation Platelet Estimate Platelet Morphology RBC Morphology Ovalocytes Critical Value Sodium Potassium Chloride Carbon Dioxide Anion Gap BUN Creatinine Estimated GFR POC Glucose 94 Random Glucose Calcium Prot Corrected Calcium Total Bilirubin AST ALT Alkaline Phosphatase Total Protein Albumin Blood Type Antibody Screen MTS Gel Crossmatch - Imaging Imaging: ITS Impressions Femur X-Ray 12/15/17 07:05 CONCLUSION: No fracture is identified. There is extensive soft tissue air in the right gluteal region and extending into the proximal and mid posterior thigh. The soft tissue air suggests an open wound. Pelvis X-Ray 12/15/17 07:05 CONCLUSION: No fracture is identified. However, there is extensive soft tissue air in the left gluteal region and left proximal thigh. Pelvis CT 12/15/17 07:52 CONCLUSION: 1. No fracture is identified. 2. Extensive subcutaneous and soft tissue gas bilaterally, left greater than right. It is most severe in the left gluteal region and extends into the proximal posterior thigh. The soft tissue air dissects through the gluteal musculature. There is adjacent subcutaneous edema. Chest X-Ray 12/17/17 04:00 CONCLUSION: No significant change. Left greater than right parenchymal opacities persist. Foot X-Ray 12/18/17 00:00 CONCLUSION: Remote small avulsion fracture at the fifth toe. No acute bony abnormality. Assessment and Plan - Assessment (1) Necrotizing fasciitis of pelvic region and thigh Code(s): M72.6 - Necrotizing fasciitis Status: Acute Plan: 52yo female with multiple medical comorbidities, s/p debridement of nec fasc -Remains critically ill -Continues to require pressor support -VAC change tomorrow -NPO after MN -Obtain consents -Hmg improved today; 11.2 - Attending Attestation hh improved plan or tomorrow consider palliative will continue to discuss The exam, history, and the medical decision-making described in the above note were completed with the assistance of the mid-level provider. I reviewed and agree with the findings presented. I attest that I had a [id number] encounter with the patient on the same day, and personally performed and documented my assessment and findings in the medical record.
[2017-12-20] MEDS: fentaNYL 10 mcg/mL Premix Drip 2,500 MCG/250 ML BAG IV.SIG PRN (11:57)
[2017-12-20] MEDS: Vasopressin Inj 40 UNIT in Sodium Chlor 0.9% Inj 98 ML IV.CONT SCH (11:57)
--- NOTE | 2017-12-20 12:08 | P.PNID ---
Subjective Remarks: Discussed with RN. Patient desaturated and FIO2 was increased . Currently 80% FIO2. On vasopressin and Neosynephrine. Levophed on hold. Blood culture has no growth. Afebrile. Post debridement 01/18/2018. This is a 52-year-old white female who was brought to the emergency department after she fell at home. The patient was noted to have profound weakness. She was evaluated in the emergency department and at that time had normal temperature and white blood cell count was also normal. She underwent CT scan of the abdomen and pelvis that showed extensive subcutaneous and soft tissue gas bilaterally with the left greater than right, most severe in the left gluteal region and extending into the proximal posterior thigh soft tissue and air-fluid dissecting through the gluteal musculature. The patient has a history of diabetes mellitus. Antibiotics: Clindamycin. Vancomycin Cefepime. Allergies/Adverse Reactions: Allergies No Known Allergies Allergy (Verified 12/15/17 07:54) Objective Vital Signs 12/19/17 12:15 12/19/17 12:30 12/19/17 12:38 Temperature 99.0 F 99.0 F Pulse Rate 97 H 100 H 106 H Respiratory Rate 22 22 23 Pulse Oximetry 95 94 L 94 L 12/19/17 12:45 12/19/17 12:52 12/19/17 13:00 Temperature 99.0 F 99.0 F 97.2 F L Pulse Rate 116 H 112 H 113 H Respiratory Rate 22 22 22 Pulse Oximetry 94 L 96 95 12/19/17 13:13 12/19/17 13:15 12/19/17 13:30 Temperature 98.6 F 98.4 F 98.2 F Pulse Rate 113 H 111 H 115 H Respiratory Rate 22 22 22 Pulse Oximetry 94 L 94 L 92 L 12/19/17 13:45 12/19/17 14:00 12/19/17 14:08 Temperature 98.2 F 98.2 F 98.4 F Pulse Rate 112 H 110 H 107 H Respiratory Rate 20 22 22 Pulse Oximetry 93 L 92 L 94 L 12/19/17 14:15 12/19/17 14:30 12/19/17 14:45 Temperature 98.2 F 98.2 F 98.4 F Pulse Rate 104 H 105 H 105 H Respiratory Rate 22 22 22 Pulse Oximetry 91 L 92 L 91 L 12/19/17 15:00 12/19/17 15:15 12/19/17 15:30 Temperature 98.4 F 98.4 F 98.4 F Pulse Rate 114 H 101 H 102 H Respiratory Rate 22 22 22 Pulse Oximetry 93 L 91 L 93 L 12/19/17 15:32 12/19/17 15:34 12/19/17 15:45 Temperature 98.4 F Pulse Rate 100 H 112 H Respiratory Rate 22 22 22 Pulse Oximetry 93 L 92 L 12/19/17 16:00 12/19/17 16:15 12/19/17 16:30 Temperature 98.4 F 98.6 F 98.6 F Pulse Rate 117 H 116 H 111 H Respiratory Rate 22 22 22 Pulse Oximetry 92 L 91 L 91 L 12/19/17 16:45 12/19/17 17:00 12/19/17 17:15 Temperature 98.6 F 98.8 F 98.8 F Pulse Rate 108 H 114 H 149 H Respiratory Rate 22 22 22 Pulse Oximetry 91 L 93 L 89 L 12/19/17 17:30 12/19/17 17:45 12/19/17 18:00 Temperature 98.8 F 99.0 F 99.0 F Pulse Rate 108 H 116 H 100 H Respiratory Rate 22 22 22 Pulse Oximetry 90 L 91 L 90 L 12/19/17 18:15 12/19/17 18:30 12/19/17 18:45 Temperature 98.8 F 99.0 F 98.8 F Pulse Rate 103 H 94 H 93 H Respiratory Rate 22 22 22 Pulse Oximetry 96 93 L 93 L 12/19/17 19:00 12/19/17 19:15 12/19/17 19:30 Temperature 98.8 F 98.8 F 98.6 F Pulse Rate 91 H 90 90 Respiratory Rate 22 22 22 Pulse Oximetry 93 L 94 L 92 L 12/19/17 19:36 12/19/17 19:45 12/19/17 20:00 Temperature 98.4 F 98.6 F Pulse Rate 89 87 92 H Respiratory Rate 22 22 22 Pulse Oximetry 94 L 95 93 L 12/19/17 20:15 12/19/17 20:30 12/19/17 20:45 Temperature 98.6 F 98.6 F 98.4 F Pulse Rate 112 H 116 H 101 H Respiratory Rate 22 37 H 22 Pulse Oximetry 94 L 95 93 L 12/19/17 21:00 12/19/17 21:15 12/19/17 21:30 Temperature 98.4 F 98.4 F 98.4 F Pulse Rate 94 H 89 87 Respiratory Rate 22 22 22 Pulse Oximetry 94 L 95 95 12/19/17 21:45 12/19/17 22:00 12/19/17 22:15 Temperature 98.4 F 98.4 F 98.4 F Pulse Rate 85 84 84 Respiratory Rate 22 22 22 Pulse Oximetry 95 95 95 12/19/17 22:30 12/19/17 22:45 12/19/17 23:00 Temperature 98.4 F 98.4 F 98.4 F Pulse Rate 82 81 82 Respiratory Rate 22 22 22 Pulse Oximetry 95 95 95 12/19/17 23:15 12/19/17 23:30 12/19/17 23:45 Temperature 98.4 F 98.4 F 98.4 F Pulse Rate 79 79 80 Respiratory Rate 22 22 22 Pulse Oximetry 95 95 95 12/20/17 00:00 12/20/17 00:15 12/20/17 00:30 Temperature 98.4 F 98.4 F 98.4 F Pulse Rate 81 78 77 Respiratory Rate 22 22 22 Pulse Oximetry 95 95 95 12/20/17 00:45 12/20/17 01:00 12/20/17 01:15 Temperature 98.6 F 98.6 F 98.4 F Pulse Rate 84 81 79 Respiratory Rate 22 22 22 Pulse Oximetry 94 L 94 L 95 12/20/17 01:30 12/20/17 01:45 12/20/17 02:00 Temperature 98.4 F 98.4 F 98.4 F Pulse Rate 79 79 77 Respiratory Rate 22 22 22 Pulse Oximetry 95 95 95 12/20/17 02:15 12/20/17 02:30 12/20/17 02:36 Temperature 98.4 F 98.4 F Pulse Rate 90 92 H Respiratory Rate 22 22 Pulse Oximetry 93 L 91 L 95 12/20/17 02:45 12/20/17 03:00 12/20/17 03:15 Temperature 98.6 F 98.6 F 98.6 F Pulse Rate 97 H 93 H 96 H Respiratory Rate 22 22 22 Pulse Oximetry 95 95 94 L 12/20/17 03:30 12/20/17 03:45 12/20/17 04:00 Temperature 98.6 F 98.4 F 98.6 F Pulse Rate 94 H 97 H 98 H Respiratory Rate 22 22 22 Pulse Oximetry 96 96 94 L 12/20/17 04:15 12/20/17 04:30 12/20/17 04:40 Temperature 98.4 F 98.6 F Pulse Rate 103 H 95 H Respiratory Rate 22 22 24 Pulse Oximetry 92 L 92 L 95 12/20/17 04:45 12/20/17 05:00 12/20/17 08:19 Temperature 98.2 F 98.2 F Pulse Rate 103 H 97 H Respiratory Rate 22 22 22 Pulse Oximetry 96 97 97 12/20/17 11:37 Temperature Pulse Rate Respiratory Rate 22 Pulse Oximetry 98 Intake & Output 12/19/17 12/20/17 12/20/17 18:59 06:59 18:59 Intake Total 3240.8 / 3240.8 1979 / 1979 306 / 306 Output Total 3750 / 3750 3000 / 3000 Balance -509.2 / -509.2 -1020 / -1020 306 / 306 Weight 80.1 kg Intake: IV 2300.8 / 2300.8 1800 / 1800 306 / 306 D5W/LR Inj 1,000 ML @ 75 mls/hr 850 / 850 1000 / 1000 IV.CONT .[id number] [facility] Rx#: [id number] NovoLIN R (IV Infusion) 100 17.3 / 17.3 UNIT In NS Inj 99 ML @ Per Protocol IV.CONT TITRATE PRN Rx #:[id number] Primacor Inj 20 MG In NS Inj 80 89.5 / 89.5 ML @ 0.25 MCG/KG/MIN 5.38 mls/ hr IV.CONT .[id number] [facility] Rx#: [id number] Neosynephrine Inj 40 MG In D5W 500 / 500 Inj 496 ML @ 40 MCG/MIN 30 mls/ hr IV.CONT TITRATE PRN Rx#: [id number] Diprivan 1000 mg/100 ml Inj 1, 200 / 200 100 / 100 52 / 52 000 mg In 100 ml @ 5 MCG/KG/MIN 1.837 mls/hr IV.CONT TITRATE PRN Rx#:[id number] Pitressin Inj 40 UNIT In NS Inj 100 / 100 65 / 65 98 ML @ 0.04 UNITS/MIN 6 mls/ hr IV.CONT CONT [facility] Rx#: [id number] Maxipime Inj 2,000 MG In NS Inj 100 / 100 100 / 100 100 ML @ 200 mls/hr IV.SIG Q12H [facility] Rx#:[id number] Cleocin 900 mg/NS Premix 900 mg 50 / 50 100 / 100 In 50 ml @ 100 mls/hr IV.SIG Q8H [facility] Rx#:[id number] Levophed Inj 4 MG In NS Inj 246 190 / 190 ML @ 2 MCG/MIN 7.5 mls/hr IV. SIG TITRATE PRN Rx#:[id number] Vancomycin Inj 1,500 MG In NS 515 / 515 Inj 500 ML @ 250 mls/hr IV.SIG Q36H [facility] Rx#:[id number] fentaNYL 10 mcg/mL Premix Drip 189 / 189 189 / 189 2,500 mcg In 250 ml @ 50 MCG/HR 5 mls/hr IV.SIG TITRATE PRN Rx #:[id number] Tube Feeding 140 / 140 180 / 180 Intake (Blood Product) Amt 800 / 800 Rbc As-3 Leukoreduced Unit 400 / 400 [id number] Rbc As-3 Leukoreduced Unit 400 / 400 [id number] Output: Urine Amount (Catheter) 2450 / 2450 1800 / 1800 1 2450 / 2450 1800 / 1800 Gastric Drainage 0 / 0 Nasogastric Tube 0 / 0 Wound Vac Amount 1300 / 1300 1200 / 1200 Posterior Sacrum 1300 / 1300 1200 / 1200 Other: Mode Setting Posterior Sacrum Continuous Continuous Date of Last Bowel Movement 12/18/17 12/20/17 # Bowel Movements 0 3 12/15/17 06:30 Blood - Peripheral Aerobic Blood Culture - Final No growth in 5 days 12/15/17 06:30 Blood - Peripheral Anaerobic Blood Culture - Final No growth in 5 days 12/15/17 06:45 Blood - Peripheral Aerobic Blood Culture - Final No growth in 5 days 12/15/17 06:45 Blood - Peripheral Anaerobic Blood Culture - Final No growth in 5 days Lab - Hematology Results 12/19/17 12/19/17 12/20/17 05:00 15:21 04:30 WBC 19.7 H 20.2 H 20.2 H RBC 2.65 L 3.65 L 3.75 L Hgb 7.5 L D 11.0 L D 11.2 L Hct 22.1 L 32.2 L 32.6 L MCV 83.3 88.2 D 86.9 MCH 28.3 30.1 29.7 MCHC 34.0 34.2 34.2 RDW 15.1 16.5 16.2 Plt Count 102 L 82 L 82 L MPV 8.1 7.9 8.1 Prelim Diff (Auto) Slide review pending Slide review pending Slide review pending Neut % (Auto) 80.2 H 86.1 H 79.5 H Lymph % (Auto) 17.5 11.8 18.4 [place] % (Auto) 1.1 1.4 1.1 Eos % (Auto) 0.6 0.3 0.4 Baso % (Auto) 0.6 0.4 0.6 Neut # (Auto) 15.8 H 17.4 H 16.1 H Lymph # (Auto) 3.4 2.4 3.7 [place] # (Auto) 0.2 0.3 0.2 Eos # (Auto) 0.1 0.1 0.1 Baso # (Auto) 0.1 0.1 0.1 WBC Differential Manual diff final Manual diff final Manual diff final Seg Neuts % (Manual) 74 H 73 H 75 H Band Neuts % (Manual) 5 10 H 4 Lymphocytes % (Manual) 16 13 18 Monocytes % (Manual) 3 3 1 Eosinophils % (Manual) 1 Metamyelocytes % (Man) 2 H Myelocytes % (Man) 1 H Promyelocytes % (Man) 1 H Abs Neuts (Manual) 16.0 H 16.8 H 16.4 H Differential Comment . . . Toxic Granulation 1+ H 1+ H Toxic Vacuolation Present H Dohle Bodies Present H Platelet Estimate Low L Low L Low L Platelet Morphology Normal Enlarged H Normal RBC Morphology Normal Ovalocytes 1+ H Lab - Chemistry Results 12/18/17 12/18/17 12/18/17 12:11 13:07 13:38 Sodium Potassium Chloride Carbon Dioxide Anion Gap BUN Creatinine Estimated GFR POC Glucose 84 85 109 Random Glucose Lactic Acid Calcium Prot Corrected Calcium Total Bilirubin AST ALT Alkaline Phosphatase Total Protein Albumin 12/18/17 12/18/17 12/18/17 13:44 15:04 16:02 Sodium Potassium Chloride Carbon Dioxide Anion Gap BUN Creatinine Estimated GFR POC Glucose 138 H 156 H Random Glucose Lactic Acid 1.0 Calcium Prot Corrected Calcium Total Bilirubin AST ALT Alkaline Phosphatase Total Protein Albumin 12/18/17 12/18/17 12/18/17 16:58 17:59 19:04 Sodium Potassium Chloride Carbon Dioxide Anion Gap BUN Creatinine Estimated GFR POC Glucose 173 H 154 H 139 H Random Glucose Lactic Acid Calcium Prot Corrected Calcium Total Bilirubin AST ALT Alkaline Phosphatase Total Protein Albumin 12/18/17 12/18/17 12/18/17 20:19 21:13 22:06 Sodium Potassium Chloride Carbon Dioxide Anion Gap BUN Creatinine Estimated GFR POC Glucose 118 H 113 H 119 H Random Glucose Lactic Acid Calcium Prot Corrected Calcium Total Bilirubin AST ALT Alkaline Phosphatase Total Protein Albumin 12/18/17 12/19/17 12/19/17 23:05 00:04 01:32 Sodium Potassium Chloride Carbon Dioxide Anion Gap BUN Creatinine Estimated GFR POC Glucose 112 H 104 132 H Random Glucose Lactic Acid Calcium Prot Corrected Calcium Total Bilirubin AST ALT Alkaline Phosphatase Total Protein Albumin 12/19/17 12/19/17 12/19/17 02:07 03:09 04:05 Sodium Potassium Chloride Carbon Dioxide Anion Gap BUN Creatinine Estimated GFR POC Glucose 133 H 146 H 113 H Random Glucose Lactic Acid Calcium Prot Corrected Calcium Total Bilirubin AST ALT Alkaline Phosphatase Total Protein Albumin 12/19/17 12/19/17 12/19/17 05:00 05:02 06:00 Sodium 139 Potassium 3.6 Chloride 110 H Carbon Dioxide 19.0 L Anion Gap 10 BUN 22 H Creatinine 1.01 H Estimated GFR 57 L POC Glucose 96 113 H Random Glucose 98 Lactic Acid Calcium 7.4 L* Prot Corrected Calcium 8.3 L D Total Bilirubin 0.8 AST 20 ALT 6 L Alkaline Phosphatase 252 H Total Protein 5.4 L Albumin 1.2 L 12/19/17 12/19/17 12/19/17 06:53 08:20 09:11 Sodium Potassium Chloride Carbon Dioxide Anion Gap BUN Creatinine Estimated GFR POC Glucose 117 H 131 H 119 H Random Glucose Lactic Acid Calcium Prot Corrected Calcium Total Bilirubin AST ALT Alkaline Phosphatase Total Protein Albumin 12/19/17 12/19/17 12/19/17 10:04 12:08 15:06 Sodium Potassium Chloride Carbon Dioxide Anion Gap BUN Creatinine Estimated GFR POC Glucose 109 142 H 168 H Random Glucose Lactic Acid Calcium Prot Corrected Calcium Total Bilirubin AST ALT Alkaline Phosphatase Total Protein Albumin 12/19/17 12/19/17 12/20/17 16:03 19:49 00:49 Sodium Potassium Chloride Carbon Dioxide Anion Gap BUN Creatinine Estimated GFR POC Glucose 225 H 286 H 223 H Random Glucose Lactic Acid Calcium Prot Corrected Calcium Total Bilirubin AST ALT Alkaline Phosphatase Total Protein Albumin 12/20/17 12/20/17 12/20/17 03:31 04:30 11:01 Sodium 138 Potassium 3.4 L Chloride 106 Carbon Dioxide 19.2 L Anion Gap 13 BUN 23 H Creatinine 1.06 H Estimated GFR 54 L POC Glucose 209 H 94 Random Glucose 195 H Lactic Acid Calcium 7.3 L* Prot Corrected Calcium 7.7 L Total Bilirubin 1.0 AST 10 L ALT Less than 6 L Alkaline Phosphatase 314 H Total Protein 6.3 L D Albumin 1.3 L Imaging: ITS Impressions Femur X-Ray 12/15/17 07:05 CONCLUSION: No fracture is identified. There is extensive soft tissue air in the right gluteal region and extending into the proximal and mid posterior thigh. The soft tissue air suggests an open wound. Pelvis X-Ray 12/15/17 07:05 CONCLUSION: No fracture is identified. However, there is extensive soft tissue air in the left gluteal region and left proximal thigh. Pelvis CT 12/15/17 07:52 CONCLUSION: 1. No fracture is identified. 2. Extensive subcutaneous and soft tissue gas bilaterally, left greater than right. It is most severe in the left gluteal region and extends into the proximal posterior thigh. The soft tissue air dissects through the gluteal musculature. There is adjacent subcutaneous edema. Chest X-Ray 12/17/17 04:00 CONCLUSION: No significant change. Left greater than right parenchymal opacities persist. Foot X-Ray 12/18/17 00:00 CONCLUSION: Remote small avulsion fracture at the fifth toe. No acute bony abnormality. Physical Exam: PHYSICAL EXAMINATION: GENERAL: Sedated. HEENT: Unable to assess fully. The sclerae has edema. Oropharynx intubated. NECK: Supple. No adenopathy or swelling. LUNGS: Coarse rhonchi. HEART: irregular S1 and S2. 1-2/6 systolic murmur at the left sternal border. ABDOMEN: Bowel sounds present, soft. BACK: Surgical wound post debridement across the lower back, buttock and thigh. Vac in place. EXTREMITIES: No clubbing, no cyanosis. Trace edema at the left foot. abrasion with dry necrotic changes at left dorsal toes 2-4. SKIN: No diffuse rash. NEUROLOGIC: Unable to assess. PSYCHIATRIC: Unable to assess. Assessment and Plan - Plan IMPRESSION: 1. Necrotizing fasciitis of the back, buttock and thigh. 2. Septic shock. 3. Acute respiratory failure. 4. Chronic kidney disease. 5. Leukocytosis. RECOMMENDATIONS: 1. Culture of wound with vac change planned on Sunday. 2. Continue vancomycin. 3. Continue clindamycin. 4. Continue cefepime for gram-negative coverage. 5. Monitor the WBC. 6 . Monitor temp. 7. UA And C&S.
--- NOTE | 2017-12-20 14:25 | P.PNPAL ---
Reason for Visit Reason for visit: a. To assist with evaluation and management of symptoms including: Pain. b. To assist medical decision maker(s) with: better understanding of current medical conditions; weighing benefits/burdens of medical treatment options; making medical treatment decisions. Subjective Subjective/Interval History: Palliative Care follow-up for assist with symptom management, family support and goals of care. Patient remains critical ill on ventilator support and vasopressors to include vasopressin and Rj-Synephrine. Patient with increased oxygen requirement, current FiO2 80% from 50% yesterday. She appears more edematous, ill looking. Febrile, tachycardic with heart rate in the low 110s. Plan to return to OR tomorrow for I & D and wound VAC change. No family at bedside during my visit. Patient with multiple chronic ongoing comorbidities who remains critically ill. Very poor overall prognosis for survival. Telephone call to patient's pio Hansen message on voicemail. Previous telephone conversation with patient's sister Linette, family suspected to visit from [place] within the incoming days. Case discussed with Dr. Bazzi and bedside RN Mere. Advance Directives Living Will: Never completed Health Care Surrogate: Never completed Health Care Surrogate Name and Number: HCP Tyrone Middleton Documented care wishes:: No known documented care wishes have been completed Objective Vital Signs: Vital Signs 12/19/17 14:30 12/19/17 14:45 12/19/17 15:00 Temperature 98.2 F 98.4 F 98.4 F Pulse Rate 105 H 105 H 114 H Respiratory Rate 22 22 22 Pulse Oximetry 92 L 91 L 93 L 12/19/17 15:15 12/19/17 15:30 12/19/17 15:32 Temperature 98.4 F 98.4 F Pulse Rate 101 H 102 H Respiratory Rate 22 22 22 Pulse Oximetry 91 L 93 L 93 L 12/19/17 15:34 12/19/17 15:45 12/19/17 16:00 Temperature 98.4 F 98.4 F Pulse Rate 100 H 112 H 117 H Respiratory Rate 22 22 22 Pulse Oximetry 92 L 92 L 12/19/17 16:15 12/19/17 16:30 12/19/17 16:45 Temperature 98.6 F 98.6 F 98.6 F Pulse Rate 116 H 111 H 108 H Respiratory Rate 22 22 22 Pulse Oximetry 91 L 91 L 91 L 12/19/17 17:00 12/19/17 17:15 12/19/17 17:30 Temperature 98.8 F 98.8 F 98.8 F Pulse Rate 114 H 149 H 108 H Respiratory Rate 22 22 22 Pulse Oximetry 93 L 89 L 90 L 12/19/17 17:45 12/19/17 18:00 12/19/17 18:15 Temperature 99.0 F 99.0 F 98.8 F Pulse Rate 116 H 100 H 103 H Respiratory Rate 22 22 22 Pulse Oximetry 91 L 90 L 96 12/19/17 18:30 12/19/17 18:45 12/19/17 19:00 Temperature 99.0 F 98.8 F 98.8 F Pulse Rate 94 H 93 H 91 H Respiratory Rate 22 22 22 Pulse Oximetry 93 L 93 L 93 L 12/19/17 19:15 12/19/17 19:30 12/19/17 19:36 Temperature 98.8 F 98.6 F Pulse Rate 90 90 89 Respiratory Rate 22 22 22 Pulse Oximetry 94 L 92 L 94 L 12/19/17 19:45 12/19/17 20:00 12/19/17 20:15 Temperature 98.4 F 98.6 F 98.6 F Pulse Rate 87 92 H 112 H Respiratory Rate 22 22 22 Pulse Oximetry 95 93 L 94 L 12/19/17 20:30 12/19/17 20:45 12/19/17 21:00 Temperature 98.6 F 98.4 F 98.4 F Pulse Rate 116 H 101 H 94 H Respiratory Rate 37 H 22 22 Pulse Oximetry 95 93 L 94 L 12/19/17 21:15 12/19/17 21:30 12/19/17 21:45 Temperature 98.4 F 98.4 F 98.4 F Pulse Rate 89 87 85 Respiratory Rate 22 22 22 Pulse Oximetry 95 95 95 12/19/17 22:00 12/19/17 22:15 12/19/17 22:30 Temperature 98.4 F 98.4 F 98.4 F Pulse Rate 84 84 82 Respiratory Rate 22 22 22 Pulse Oximetry 95 95 95 12/19/17 22:45 12/19/17 23:00 12/19/17 23:15 Temperature 98.4 F 98.4 F 98.4 F Pulse Rate 81 82 79 Respiratory Rate 22 22 22 Pulse Oximetry 95 95 95 12/19/17 23:30 12/19/17 23:45 12/20/17 00:00 Temperature 98.4 F 98.4 F 98.4 F Pulse Rate 79 80 81 Respiratory Rate 22 22 22 Pulse Oximetry 95 95 95 12/20/17 00:15 12/20/17 00:30 12/20/17 00:45 Temperature 98.4 F 98.4 F 98.6 F Pulse Rate 78 77 84 Respiratory Rate 22 22 22 Pulse Oximetry 95 95 94 L 12/20/17 01:00 12/20/17 01:15 12/20/17 01:30 Temperature 98.6 F 98.4 F 98.4 F Pulse Rate 81 79 79 Respiratory Rate 22 22 22 Pulse Oximetry 94 L 95 95 12/20/17 01:45 12/20/17 02:00 12/20/17 02:15 Temperature 98.4 F 98.4 F 98.4 F Pulse Rate 79 77 90 Respiratory Rate 22 22 22 Pulse Oximetry 95 95 93 L 12/20/17 02:30 12/20/17 02:36 12/20/17 02:45 Temperature 98.4 F 98.6 F Pulse Rate 92 H 97 H Respiratory Rate 22 22 Pulse Oximetry 91 L 95 95 12/20/17 03:00 12/20/17 03:15 12/20/17 03:30 Temperature 98.6 F 98.6 F 98.6 F Pulse Rate 93 H 96 H 94 H Respiratory Rate 22 22 22 Pulse Oximetry 95 94 L 96 12/20/17 03:45 12/20/17 04:00 12/20/17 04:15 Temperature 98.4 F 98.6 F 98.4 F Pulse Rate 97 H 98 H 103 H Respiratory Rate 22 22 22 Pulse Oximetry 96 94 L 92 L 12/20/17 04:30 12/20/17 04:40 12/20/17 04:45 Temperature 98.6 F 98.2 F Pulse Rate 95 H 103 H Respiratory Rate 22 24 22 Pulse Oximetry 92 L 95 96 12/20/17 05:00 12/20/17 08:19 12/20/17 11:37 Temperature 98.2 F Pulse Rate 97 H Respiratory Rate 22 22 22 Pulse Oximetry 97 97 98 Intake & Output 12/19/17 12/20/17 12/20/17 18:59 06:59 18:59 Intake Total 3240.8 / 3240.8 1979 / 1979 306 / 306 Output Total 3750 / 3750 3000 / 3000 Balance -509.2 / -509.2 -1020 / -1020 306 / 306 Weight 80.1 kg Intake: IV 2300.8 / 2300.8 1800 / 1800 306 / 306 D5W/LR Inj 1,000 ML @ 75 mls/hr 850 / 850 1000 / 1000 IV.CONT .[id number] RICARDO Rx#: [id number] NovoLIN R (IV Infusion) 100 17.3 / 17.3 UNIT In NS Inj 99 ML @ Per Protocol IV.CONT TITRATE PRN Rx #:[id number] Primacor Inj 20 MG In NS Inj 80 89.5 / 89.5 ML @ 0.25 MCG/KG/MIN 5.38 mls/ hr IV.CONT .[id number] RICARDO Rx#: [id number] Neosynephrine Inj 40 MG In D5W 500 / 500 Inj 496 ML @ 40 MCG/MIN 30 mls/ hr IV.CONT TITRATE PRN Rx#: [id number] Diprivan 1000 mg/100 ml Inj 1, 200 / 200 100 / 100 52 / 52 000 mg In 100 ml @ 5 MCG/KG/MIN 1.837 mls/hr IV.CONT TITRATE PRN Rx#:[id number] Pitressin Inj 40 UNIT In NS Inj 100 / 100 65 / 65 98 ML @ 0.04 UNITS/MIN 6 mls/ hr IV.CONT CONT RICARDO Rx#: [id number] Maxipime Inj 2,000 MG In NS Inj 100 / 100 100 / 100 100 ML @ 200 mls/hr IV.SIG Q12H RICARDO Rx#:[id number] Cleocin 900 mg/NS Premix 900 mg 50 / 50 100 / 100 In 50 ml @ 100 mls/hr IV.SIG Q8H RICARDO Rx#:[id number] Levophed Inj 4 MG In NS Inj 246 190 / 190 ML @ 2 MCG/MIN 7.5 mls/hr IV. SIG TITRATE PRN Rx#:[id number] Vancomycin Inj 1,500 MG In NS 515 / 515 Inj 500 ML @ 250 mls/hr IV.SIG Q36H RICARDO Rx#:[id number] fentaNYL 10 mcg/mL Premix Drip 189 / 189 189 / 189 2,500 mcg In 250 ml @ 50 MCG/HR 5 mls/hr IV.SIG TITRATE PRN Rx #:[id number] Tube Feeding 140 / 140 180 / 180 Intake (Blood Product) Amt 800 / 800 Rbc As-3 Leukoreduced Unit 400 / 400 [id number] Rbc As-3 Leukoreduced Unit 400 / 400 [id number] Output: Urine Amount (Catheter) 2450 / 2450 1800 / 1800 1 2450 / 2450 1800 / 1800 Gastric Drainage 0 / 0 Nasogastric Tube 0 / 0 Wound Vac Amount 1300 / 1300 1200 / 1200 Posterior Sacrum 1300 / 1300 1200 / 1200 Other: Mode Setting Posterior Sacrum Continuous Continuous Date of Last Bowel Movement 12/18/17 12/20/17 # Bowel Movements 0 3 Physical Exam: CONSTITUTIONAL/GENERAL: This is a chronically ill appearing female who looks older than her stated age. currently intubated on mechanical vent TUBES/LINES/DRAINS:ETT, NGT, CVL, Art line, Tristan, SCDs, PIV, wound VAC with moderate amount of serous output. SKIN: Abrasion on left forehead. Wound VAC in place over lower lumbar region. Pale looking. Not diaphoretic. HEAD: Atraumatic. Normocephalic. EYES: Pupils equal and round, reactive. No scleral icterus. No injection or drainage. ENT: Nose without bleeding or purulent drainage. Moist oral mucosa. NECK: Trachea midline. Supple, nontender. CARDIOVASCULAR: Tachycardic with heart rate in the low 110s. Regular rate and rhythm. Palpable pedal pulse L foot. RESPIRATORY/CHEST: Intubated on vent. FiO2 80%. Coarse breath sounds. GASTROINTESTINAL: Abdomen soft, non-tender, nondistended. No guarding. Bowel sounds present. Ongoing tube feedings via OG tube. GENITOURINARY: Without palpable bladder distension. Tristan catheter in place. MUSCULOSKELETAL: Status post right BKA. Left foot cool to touch; several toes with necrotic ulcerations on left foot/wrapped in dressing. NEUROLOGICAL: Unresponsive to verbal or tactile stimuli. PSYCHIATRIC: Unable to assess given current level of responsiveness Diagnostic Tests Laboratory: Laboratory Results - last 72 hr 12/15/17 12/17/17 12/17/17 16:51 14:09 17:17 WBC RBC Hgb Hct MCV MCH MCHC RDW Plt Count MPV Prelim Diff (Auto) Neut % (Auto) Lymph % (Auto) [place] % (Auto) Eos % (Auto) Baso % (Auto) Neut # (Auto) Lymph # (Auto) [place] # (Auto) Eos # (Auto) Baso # (Auto) WBC Differential Seg Neuts % (Manual) Band Neuts % (Manual) Lymphocytes % (Manual) Monocytes % (Manual) Eosinophils % (Manual) Metamyelocytes % (Man) Myelocytes % (Man) Promyelocytes % (Man) Abs Neuts (Manual) Nucleated RBCs/100 WBC Differential Comment Toxic Granulation Toxic Vacuolation Dohle Bodies Platelet Estimate Platelet Morphology RBC Morphology Ovalocytes Puncture Site Patient Temperature O2 Saturation ABG pH ABG pCO2 ABG pO2 ABG HCO3 ABG O2 Content ABG Base Excess ABG Methemoglobin Hemoglobin Carboxyhemoglobin O2 Delivery Device Vent Setting Inspired O2 Critical Value Sodium Potassium Chloride Carbon Dioxide Anion Gap BUN Creatinine Estimated GFR POC Glucose 163 H 225 H Random Glucose Lactic Acid Calcium Prot Corrected Calcium Total Bilirubin AST ALT Alkaline Phosphatase Total Protein Albumin Prealbumin Random Vancomycin Blood Type Antibody Screen MTS Gel Crossmatch See Detail Bld Prod Order Comment 12/17/17 12/17/17 12/17/17 20:31 21:48 22:57 WBC RBC Hgb Hct MCV MCH MCHC RDW Plt Count MPV Prelim Diff (Auto) Neut % (Auto) Lymph % (Auto) [place] % (Auto) Eos % (Auto) Baso % (Auto) Neut # (Auto) Lymph # (Auto) [place] # (Auto) Eos # (Auto) Baso # (Auto) WBC Differential Seg Neuts % (Manual) Band Neuts % (Manual) Lymphocytes % (Manual) Monocytes % (Manual) Eosinophils % (Manual) Metamyelocytes % (Man) Myelocytes % (Man) Promyelocytes % (Man) Abs Neuts (Manual) Nucleated RBCs/100 WBC Differential Comment Toxic Granulation Toxic Vacuolation Dohle Bodies Platelet Estimate Platelet Morphology RBC Morphology Ovalocytes Puncture Site Patient Temperature O2 Saturation ABG pH ABG pCO2 ABG pO2 ABG HCO3 ABG O2 Content ABG Base Excess ABG Methemoglobin Hemoglobin Carboxyhemoglobin O2 Delivery Device Vent Setting Inspired O2 Critical Value Sodium Potassium Chloride Carbon Dioxide Anion Gap BUN Creatinine Estimated GFR POC Glucose 304 H 263 H 210 H Random Glucose Lactic Acid Calcium Prot Corrected Calcium Total Bilirubin AST ALT Alkaline Phosphatase Total Protein Albumin Prealbumin Random Vancomycin Blood Type Antibody Screen MTS Gel Crossmatch Bld Prod Order Comment 12/17/17 12/18/17 12/18/17 23:49 00:50 01:55 WBC RBC Hgb Hct MCV MCH MCHC RDW Plt Count MPV Prelim Diff (Auto) Neut % (Auto) Lymph % (Auto) [place] % (Auto) Eos % (Auto) Baso % (Auto) Neut # (Auto) Lymph # (Auto) [place] # (Auto) Eos # (Auto) Baso # (Auto) WBC Differential Seg Neuts % (Manual) Band Neuts % (Manual) Lymphocytes % (Manual) Monocytes % (Manual) Eosinophils % (Manual) Metamyelocytes % (Man) Myelocytes % (Man) Promyelocytes % (Man) Abs Neuts (Manual) Nucleated RBCs/100 WBC Differential Comment Toxic Granulation Toxic Vacuolation Dohle Bodies Platelet Estimate Platelet Morphology RBC Morphology Ovalocytes Puncture Site Patient Temperature O2 Saturation ABG pH ABG pCO2 ABG pO2 ABG HCO3 ABG O2 Content ABG Base Excess ABG Methemoglobin Hemoglobin Carboxyhemoglobin O2 Delivery Device Vent Setting Inspired O2 Critical Value Sodium Potassium Chloride Carbon Dioxide Anion Gap BUN Creatinine Estimated GFR POC Glucose 163 H 116 H 102 Random Glucose Lactic Acid Calcium Prot Corrected Calcium Total Bilirubin AST ALT Alkaline Phosphatase Total Protein Albumin Prealbumin Random Vancomycin Blood Type Antibody Screen MTS Gel Crossmatch Bld Prod Order Comment 12/18/17 12/18/17 12/18/17 03:14 03:45 03:45 WBC 21.7 H RBC 3.39 L Hgb 9.7 L D Hct 27.7 L MCV 81.6 MCH 28.5 MCHC 34.9 RDW 15.0 Plt Count 138 L MPV 7.9 Prelim Diff (Auto) Slide review pending Neut % (Auto) 87.4 H Lymph % (Auto) 11.1 [place] % (Auto) 0.8 Eos % (Auto) 0.2 Baso % (Auto) 0.5 Neut # (Auto) 19.0 H Lymph # (Auto) 2.4 [place] # (Auto) 0.2 Eos # (Auto) 0.0 Baso # (Auto) 0.1 WBC Differential Manual diff final Seg Neuts % (Manual) 57 Band Neuts % (Manual) 27 H Lymphocytes % (Manual) 11 Monocytes % (Manual) 1 Eosinophils % (Manual) Metamyelocytes % (Man) 3 H Myelocytes % (Man) 1 H Promyelocytes % (Man) Abs Neuts (Manual) 19.1 H Nucleated RBCs/100 WBC 1 H Differential Comment . Toxic Granulation 1+ H Toxic Vacuolation Present H Dohle Bodies Present H Platelet Estimate Low L Platelet Morphology Normal RBC Morphology Normal Ovalocytes Puncture Site Patient Temperature O2 Saturation ABG pH ABG pCO2 ABG pO2 ABG HCO3 ABG O2 Content ABG Base Excess ABG Methemoglobin Hemoglobin Carboxyhemoglobin O2 Delivery Device Vent Setting Inspired O2 Critical Value Sodium 140 Potassium 4.1 Chloride 111 H Carbon Dioxide 20.1 L Anion Gap 9 BUN 23 H Creatinine 0.93 Estimated GFR 63 L POC Glucose 90 Random Glucose 116 H Lactic Acid Calcium 6.7 L* Prot Corrected Calcium 7.4 L* Total Bilirubin 0.9 AST 26 ALT 8 L Alkaline Phosphatase 288 H Total Protein 5.7 L D Albumin 0.9 L Prealbumin 5 L Random Vancomycin 24.6 Blood Type Antibody Screen MTS Gel Crossmatch Bld Prod Order Comment 12/18/17 12/18/17 12/18/17 03:54 04:50 05:37 WBC RBC Hgb Hct MCV MCH MCHC RDW Plt Count MPV Prelim Diff (Auto) Neut % (Auto) Lymph % (Auto) [place] % (Auto) Eos % (Auto) Baso % (Auto) Neut # (Auto) Lymph # (Auto) [place] # (Auto) Eos # (Auto) Baso # (Auto) WBC Differential Seg Neuts % (Manual) Band Neuts % (Manual) Lymphocytes % (Manual) Monocytes % (Manual) Eosinophils % (Manual) Metamyelocytes % (Man) Myelocytes % (Man) Promyelocytes % (Man) Abs Neuts (Manual) Nucleated RBCs/100 WBC Differential Comment Toxic Granulation Toxic Vacuolation Dohle Bodies Platelet Estimate Platelet Morphology RBC Morphology Ovalocytes Puncture Site Patient Temperature O2 Saturation ABG pH ABG pCO2 ABG pO2 ABG HCO3 ABG O2 Content ABG Base Excess ABG Methemoglobin Hemoglobin Carboxyhemoglobin O2 Delivery Device Vent Setting Inspired O2 Critical Value Sodium Potassium Chloride Carbon Dioxide Anion Gap BUN Creatinine Estimated GFR POC Glucose 96 118 H 130 H Random Glucose Lactic Acid Calcium Prot Corrected Calcium Total Bilirubin AST ALT Alkaline Phosphatase Total Protein Albumin Prealbumin Random Vancomycin Blood Type Antibody Screen MTS Gel Crossmatch Bld Prod Order Comment 12/18/17 12/18/17 12/18/17 05:48 06:41 08:00 WBC RBC Hgb Hct MCV MCH MCHC RDW Plt Count MPV Prelim Diff (Auto) Neut % (Auto) Lymph % (Auto) [place] % (Auto) Eos % (Auto) Baso % (Auto) Neut # (Auto) Lymph # (Auto) [place] # (Auto) Eos # (Auto) Baso # (Auto) WBC Differential Seg Neuts % (Manual) Band Neuts % (Manual) Lymphocytes % (Manual) Monocytes % (Manual) Eosinophils % (Manual) Metamyelocytes % (Man) Myelocytes % (Man) Promyelocytes % (Man) Abs Neuts (Manual) Nucleated RBCs/100 WBC Differential Comment Toxic Granulation Toxic Vacuolation Dohle Bodies Platelet Estimate Platelet Morphology RBC Morphology Ovalocytes Puncture Site Art line Patient Temperature 98.6 O2 Saturation 95 ABG pH 7.35 L ABG pCO2 34 L ABG pO2 92 ABG HCO3 18 L ABG O2 Content 12.9 ABG Base Excess -6.6 L ABG Methemoglobin 1.5 Hemoglobin 9.6 L Carboxyhemoglobin 0.9 O2 Delivery Device Ventilator Vent Setting [id number]/it 1.0 Inspired O2 60 Critical Value No Sodium Potassium Chloride Carbon Dioxide Anion Gap BUN Creatinine Estimated GFR POC Glucose 139 H Random Glucose Lactic Acid 3.0 H Calcium Prot Corrected Calcium Total Bilirubin AST ALT Alkaline Phosphatase Total Protein Albumin Prealbumin Random Vancomycin Blood Type Antibody Screen MTS Gel Crossmatch Bld Prod Order Comment 12/18/17 12/18/17 12/18/17 08:17 08:24 09:08 WBC RBC Hgb Hct MCV MCH MCHC RDW Plt Count MPV Prelim Diff (Auto) Neut % (Auto) Lymph % (Auto) [place] % (Auto) Eos % (Auto) Baso % (Auto) Neut # (Auto) Lymph # (Auto) [place] # (Auto) Eos # (Auto) Baso # (Auto) WBC Differential Seg Neuts % (Manual) Band Neuts % (Manual) Lymphocytes % (Manual) Monocytes % (Manual) Eosinophils % (Manual) Metamyelocytes % (Man) Myelocytes % (Man) Promyelocytes % (Man) Abs Neuts (Manual) Nucleated RBCs/100 WBC Differential Comment Toxic Granulation Toxic Vacuolation Dohle Bodies Platelet Estimate Platelet Morphology RBC Morphology Ovalocytes Puncture Site Art line Patient Temperature 98.6 O2 Saturation 97 ABG pH 7.30 L ABG pCO2 35 L ABG pO2 275 H ABG HCO3 17 L ABG O2 Content 16.9 ABG Base Excess -8.7 L ABG Methemoglobin 1.4 Hemoglobin 11.9 L Carboxyhemoglobin 0.7 O2 Delivery Device Ventilator Vent Setting See comments Inspired O2 Critical Value No Sodium Potassium Chloride Carbon Dioxide Anion Gap BUN Creatinine Estimated GFR POC Glucose 125 H 97 Random Glucose Lactic Acid Calcium Prot Corrected Calcium Total Bilirubin AST ALT Alkaline Phosphatase Total Protein Albumin Prealbumin Random Vancomycin Blood Type Antibody Screen MTS Gel Crossmatch Bld Prod Order Comment 12/18/17 12/18/17 12/18/17 09:58 11:02 12:11 WBC RBC Hgb Hct MCV MCH MCHC RDW Plt Count MPV Prelim Diff (Auto) Neut % (Auto) Lymph % (Auto) [place] % (Auto) Eos % (Auto) Baso % (Auto) Neut # (Auto) Lymph # (Auto) [place] # (Auto) Eos # (Auto) Baso # (Auto) WBC Differential Seg Neuts % (Manual) Band Neuts % (Manual) Lymphocytes % (Manual) Monocytes % (Manual) Eosinophils % (Manual) Metamyelocytes % (Man) Myelocytes % (Man) Promyelocytes % (Man) Abs Neuts (Manual) Nucleated RBCs/100 WBC Differential Comment Toxic Granulation Toxic Vacuolation Dohle Bodies Platelet Estimate Platelet Morphology RBC Morphology Ovalocytes Puncture Site Patient Temperature O2 Saturation ABG pH ABG pCO2 ABG pO2 ABG HCO3 ABG O2 Content ABG Base Excess ABG Methemoglobin Hemoglobin Carboxyhemoglobin O2 Delivery Device Vent Setting Inspired O2 Critical Value Sodium Potassium Chloride Carbon Dioxide Anion Gap BUN Creatinine Estimated GFR POC Glucose 83 84 Random Glucose 84 Lactic Acid Calcium Prot Corrected Calcium Total Bilirubin AST ALT Alkaline Phosphatase Total Protein Albumin Prealbumin Random Vancomycin Blood Type Antibody Screen MTS Gel Crossmatch Bld Prod Order Comment 12/18/17 12/18/17 12/18/17 13:07 13:38 13:44 WBC RBC Hgb Hct MCV MCH MCHC RDW Plt Count MPV Prelim Diff (Auto) Neut % (Auto) Lymph % (Auto) [place] % (Auto) Eos % (Auto) Baso % (Auto) Neut # (Auto) Lymph # (Auto) [place] # (Auto) Eos # (Auto) Baso # (Auto) WBC Differential Seg Neuts % (Manual) Band Neuts % (Manual) Lymphocytes % (Manual) Monocytes % (Manual) Eosinophils % (Manual) Metamyelocytes % (Man) Myelocytes % (Man) Promyelocytes % (Man) Abs Neuts (Manual) Nucleated RBCs/100 WBC Differential Comment Toxic Granulation Toxic Vacuolation Dohle Bodies Platelet Estimate Platelet Morphology RBC Morphology Ovalocytes Puncture Site Patient Temperature O2 Saturation ABG pH ABG pCO2 ABG pO2 ABG HCO3 ABG O2 Content ABG Base Excess ABG Methemoglobin Hemoglobin Carboxyhemoglobin O2 Delivery Device Vent Setting Inspired O2 Critical Value Sodium Potassium Chloride Carbon Dioxide Anion Gap BUN Creatinine Estimated GFR POC Glucose 85 109 Random Glucose Lactic Acid 1.0 Calcium Prot Corrected Calcium Total Bilirubin AST ALT Alkaline Phosphatase Total Protein Albumin Prealbumin Random Vancomycin Blood Type Antibody Screen MTS Gel Crossmatch Bld Prod Order Comment 12/18/17 12/18/17 12/18/17 15:04 16:02 16:58 WBC RBC Hgb Hct MCV MCH MCHC RDW Plt Count MPV Prelim Diff (Auto) Neut % (Auto) Lymph % (Auto) [place] % (Auto) Eos % (Auto) Baso % (Auto) Neut # (Auto) Lymph # (Auto) [place] # (Auto) Eos # (Auto) Baso # (Auto) WBC Differential Seg Neuts % (Manual) Band Neuts % (Manual) Lymphocytes % (Manual) Monocytes % (Manual) Eosinophils % (Manual) Metamyelocytes % (Man) Myelocytes % (Man) Promyelocytes % (Man) Abs Neuts (Manual) Nucleated RBCs/100 WBC Differential Comment Toxic Granulation Toxic Vacuolation Dohle Bodies Platelet Estimate Platelet Morphology RBC Morphology Ovalocytes Puncture Site Patient Temperature O2 Saturation ABG pH ABG pCO2 ABG pO2 ABG HCO3 ABG O2 Content ABG Base Excess ABG Methemoglobin Hemoglobin Carboxyhemoglobin O2 Delivery Device Vent Setting Inspired O2 Critical Value Sodium Potassium Chloride Carbon Dioxide Anion Gap BUN Creatinine Estimated GFR POC Glucose 138 H 156 H 173 H Random Glucose Lactic Acid Calcium Prot Corrected Calcium Total Bilirubin AST ALT Alkaline Phosphatase Total Protein Albumin Prealbumin Random Vancomycin Blood Type Antibody Screen MTS Gel Crossmatch Bld Prod Order Comment 12/18/17 12/18/17 12/18/17 17:59 19:04 20:19 WBC RBC Hgb Hct MCV MCH MCHC RDW Plt Count MPV Prelim Diff (Auto) Neut % (Auto) Lymph % (Auto) [place] % (Auto) Eos % (Auto) Baso % (Auto) Neut # (Auto) Lymph # (Auto) [place] # (Auto) Eos # (Auto) Baso # (Auto) WBC Differential Seg Neuts % (Manual) Band Neuts % (Manual) Lymphocytes % (Manual) Monocytes % (Manual) Eosinophils % (Manual) Metamyelocytes % (Man) Myelocytes % (Man) Promyelocytes % (Man) Abs Neuts (Manual) Nucleated RBCs/100 WBC Differential Comment Toxic Granulation Toxic Vacuolation Dohle Bodies Platelet Estimate Platelet Morphology RBC Morphology Ovalocytes Puncture Site Patient Temperature O2 Saturation ABG pH ABG pCO2 ABG pO2 ABG HCO3 ABG O2 Content ABG Base Excess ABG Methemoglobin Hemoglobin Carboxyhemoglobin O2 Delivery Device Vent Setting Inspired O2 Critical Value Sodium Potassium Chloride Carbon Dioxide Anion Gap BUN Creatinine Estimated GFR POC Glucose 154 H 139 H 118 H Random Glucose Lactic Acid Calcium Prot Corrected Calcium Total Bilirubin AST ALT Alkaline Phosphatase Total Protein Albumin Prealbumin Random Vancomycin Blood Type Antibody Screen MTS Gel Crossmatch Bld Prod Order Comment 12/18/17 12/18/17 12/18/17 21:13 22:06 23:05 WBC RBC Hgb Hct MCV MCH MCHC RDW Plt Count MPV Prelim Diff (Auto) Neut % (Auto) Lymph % (Auto) [place] % (Auto) Eos % (Auto) Baso % (Auto) Neut # (Auto) Lymph # (Auto) [place] # (Auto) Eos # (Auto) Baso # (Auto) WBC Differential Seg Neuts % (Manual) Band Neuts % (Manual) Lymphocytes % (Manual) Monocytes % (Manual) Eosinophils % (Manual) Metamyelocytes % (Man) Myelocytes % (Man) Promyelocytes % (Man) Abs Neuts (Manual) Nucleated RBCs/100 WBC Differential Comment Toxic Granulation Toxic Vacuolation Dohle Bodies Platelet Estimate Platelet Morphology RBC Morphology Ovalocytes Puncture Site Patient Temperature O2 Saturation ABG pH ABG pCO2 ABG pO2 ABG HCO3 ABG O2 Content ABG Base Excess ABG Methemoglobin Hemoglobin Carboxyhemoglobin O2 Delivery Device Vent Setting Inspired O2 Critical Value Sodium Potassium Chloride Carbon Dioxide Anion Gap BUN Creatinine Estimated GFR POC Glucose 113 H 119 H 112 H Random Glucose Lactic Acid Calcium Prot Corrected Calcium Total Bilirubin AST ALT Alkaline Phosphatase Total Protein Albumin Prealbumin Random Vancomycin Blood Type Antibody Screen MTS Gel Crossmatch Bld Prod Order Comment 12/19/17 12/19/17 12/19/17 00:04 01:32 02:07 WBC RBC Hgb Hct MCV MCH MCHC RDW Plt Count MPV Prelim Diff (Auto) Neut % (Auto) Lymph % (Auto) [place] % (Auto) Eos % (Auto) Baso % (Auto) Neut # (Auto) Lymph # (Auto) [place] # (Auto) Eos # (Auto) Baso # (Auto) WBC Differential Seg Neuts % (Manual) Band Neuts % (Manual) Lymphocytes % (Manual) Monocytes % (Manual) Eosinophils % (Manual) Metamyelocytes % (Man) Myelocytes % (Man) Promyelocytes % (Man) Abs Neuts (Manual) Nucleated RBCs/100 WBC Differential Comment Toxic Granulation Toxic Vacuolation Dohle Bodies Platelet Estimate Platelet Morphology RBC Morphology Ovalocytes Puncture Site Patient Temperature O2 Saturation ABG pH ABG pCO2 ABG pO2 ABG HCO3 ABG O2 Content ABG Base Excess ABG Methemoglobin Hemoglobin Carboxyhemoglobin O2 Delivery Device Vent Setting Inspired O2 Critical Value Sodium Potassium Chloride Carbon Dioxide Anion Gap BUN Creatinine Estimated GFR POC Glucose 104 132 H 133 H Random Glucose Lactic Acid Calcium Prot Corrected Calcium Total Bilirubin AST ALT Alkaline Phosphatase Total Protein Albumin Prealbumin Random Vancomycin Blood Type Antibody Screen MTS Gel Crossmatch Bld Prod Order Comment 12/19/17 12/19/17 12/19/17 03:09 04:05 05:00 WBC 19.7 H RBC 2.65 L Hgb 7.5 L D Hct 22.1 L MCV 83.3 MCH 28.3 MCHC 34.0 RDW 15.1 Plt Count 102 L MPV 8.1 Prelim Diff (Auto) Slide review pending Neut % (Auto) 80.2 H Lymph % (Auto) 17.5 Conway % (Auto) 1.1 Eos % (Auto) 0.6 Baso % (Auto) 0.6 Neut # (Auto) 15.8 H Lymph # (Auto) 3.4 Conway # (Auto) 0.2 Eos # (Auto) 0.1 Baso # (Auto) 0.1 WBC Differential Manual diff final Seg Neuts % (Manual) 74 H Band Neuts % (Manual) 5 Lymphocytes % (Manual) 16 Monocytes % (Manual) 3 Eosinophils % (Manual) Metamyelocytes % (Man) Myelocytes % (Man) 1 H Promyelocytes % (Man) 1 H Abs Neuts (Manual) 16.0 H Nucleated RBCs/100 WBC Differential Comment . Toxic Granulation 1+ H Toxic Vacuolation Present H Dohle Bodies Present H Platelet Estimate Low L Platelet Morphology Normal RBC Morphology Ovalocytes Puncture Site Patient Temperature O2 Saturation ABG pH ABG pCO2 ABG pO2 ABG HCO3 ABG O2 Content ABG Base Excess ABG Methemoglobin Hemoglobin Carboxyhemoglobin O2 Delivery Device Vent Setting Inspired O2 Critical Value Sodium Potassium Chloride Carbon Dioxide Anion Gap BUN Creatinine Estimated GFR POC Glucose 146 H 113 H Random Glucose Lactic Acid Calcium Prot Corrected Calcium Total Bilirubin AST ALT Alkaline Phosphatase Total Protein Albumin Prealbumin Random Vancomycin Blood Type Antibody Screen MTS Gel Crossmatch Bld Prod Order Comment 12/19/17 12/19/17 12/19/17 05:00 05:02 06:00 WBC RBC Hgb Hct MCV MCH MCHC RDW Plt Count MPV Prelim Diff (Auto) Neut % (Auto) Lymph % (Auto) Conway % (Auto) Eos % (Auto) Baso % (Auto) Neut # (Auto) Lymph # (Auto) Conway # (Auto) Eos # (Auto) Baso # (Auto) WBC Differential Seg Neuts % (Manual) Band Neuts % (Manual) Lymphocytes % (Manual) Monocytes % (Manual) Eosinophils % (Manual) Metamyelocytes % (Man) Myelocytes % (Man) Promyelocytes % (Man) Abs Neuts (Manual) Nucleated RBCs/100 WBC Differential Comment Toxic Granulation Toxic Vacuolation Dohle Bodies Platelet Estimate Platelet Morphology RBC Morphology Ovalocytes Puncture Site Patient Temperature O2 Saturation ABG pH ABG pCO2 ABG pO2 ABG HCO3 ABG O2 Content ABG Base Excess ABG Methemoglobin Hemoglobin Carboxyhemoglobin O2 Delivery Device Vent Setting Inspired O2 Critical Value Sodium 139 Potassium 3.6 Chloride 110 H Carbon Dioxide 19.0 L Anion Gap 10 BUN 22 H Creatinine 1.01 H Estimated GFR 57 L POC Glucose 96 113 H Random Glucose 98 Lactic Acid Calcium 7.4 L* Prot Corrected Calcium 8.3 L D Total Bilirubin 0.8 AST 20 ALT 6 L Alkaline Phosphatase 252 H Total Protein 5.4 L Albumin 1.2 L Prealbumin Random Vancomycin 13.8 Blood Type Antibody Screen MTS Gel Crossmatch Bld Prod Order Comment 12/19/17 12/19/17 12/19/17 06:53 08:20 09:11 WBC RBC Hgb Hct MCV MCH MCHC RDW Plt Count MPV Prelim Diff (Auto) Neut % (Auto) Lymph % (Auto) Conway % (Auto) Eos % (Auto) Baso % (Auto) Neut # (Auto) Lymph # (Auto) Conway # (Auto) Eos # (Auto) Baso # (Auto) WBC Differential Seg Neuts % (Manual) Band Neuts % (Manual) Lymphocytes % (Manual) Monocytes % (Manual) Eosinophils % (Manual) Metamyelocytes % (Man) Myelocytes % (Man) Promyelocytes % (Man) Abs Neuts (Manual) Nucleated RBCs/100 WBC Differential Comment Toxic Granulation Toxic Vacuolation Dohle Bodies Platelet Estimate Platelet Morphology RBC Morphology Ovalocytes Puncture Site Patient Temperature O2 Saturation ABG pH ABG pCO2 ABG pO2 ABG HCO3 ABG O2 Content ABG Base Excess ABG Methemoglobin Hemoglobin Carboxyhemoglobin O2 Delivery Device Vent Setting Inspired O2 Critical Value Sodium Potassium Chloride Carbon Dioxide Anion Gap BUN Creatinine Estimated GFR POC Glucose 117 H 131 H 119 H Random Glucose Lactic Acid Calcium Prot Corrected Calcium Total Bilirubin AST ALT Alkaline Phosphatase Total Protein Albumin Prealbumin Random Vancomycin Blood Type Antibody Screen MTS Gel Crossmatch Bld Prod Order Comment 12/19/17 12/19/17 12/19/17 10:04 10:55 12:08 WBC RBC Hgb Hct MCV MCH MCHC RDW Plt Count MPV Prelim Diff (Auto) Neut % (Auto) Lymph % (Auto) Conway % (Auto) Eos % (Auto) Baso % (Auto) Neut # (Auto) Lymph # (Auto) Conway # (Auto) Eos # (Auto) Baso # (Auto) WBC Differential Seg Neuts % (Manual) Band Neuts % (Manual) Lymphocytes % (Manual) Monocytes % (Manual) Eosinophils % (Manual) Metamyelocytes % (Man) Myelocytes % (Man) Promyelocytes % (Man) Abs Neuts (Manual) Nucleated RBCs/100 WBC Differential Comment Toxic Granulation Toxic Vacuolation Dohle Bodies Platelet Estimate Platelet Morphology RBC Morphology Ovalocytes Puncture Site Patient Temperature O2 Saturation ABG pH ABG pCO2 ABG pO2 ABG HCO3 ABG O2 Content ABG Base Excess ABG Methemoglobin Hemoglobin Carboxyhemoglobin O2 Delivery Device Vent Setting Inspired O2 Critical Value Sodium Potassium Chloride Carbon Dioxide Anion Gap BUN Creatinine Estimated GFR POC Glucose 109 142 H Random Glucose Lactic Acid Calcium Prot Corrected Calcium Total Bilirubin AST ALT Alkaline Phosphatase Total Protein Albumin Prealbumin Random Vancomycin Blood Type O Negative Antibody Screen Negative MTS Gel Crossmatch See Detail Bld Prod Order Comment 12/19/17 12/19/17 12/19/17 15:06 15:21 16:03 WBC 20.2 H RBC 3.65 L Hgb 11.0 L D Hct 32.2 L MCV 88.2 D MCH 30.1 MCHC 34.2 RDW 16.5 Plt Count 82 L MPV 7.9 Prelim Diff (Auto) Slide review pending Neut % (Auto) 86.1 H Lymph % (Auto) 11.8 Conway % (Auto) 1.4 Eos % (Auto) 0.3 Baso % (Auto) 0.4 Neut # (Auto) 17.4 H Lymph # (Auto) 2.4 Conway # (Auto) 0.3 Eos # (Auto) 0.1 Baso # (Auto) 0.1 WBC Differential Manual diff final Seg Neuts % (Manual) 73 H Band Neuts % (Manual) 10 H Lymphocytes % (Manual) 13 Monocytes % (Manual) 3 Eosinophils % (Manual) 1 Metamyelocytes % (Man) Myelocytes % (Man) Promyelocytes % (Man) Abs Neuts (Manual) 16.8 H Nucleated RBCs/100 WBC Differential Comment . Toxic Granulation 1+ H Toxic Vacuolation Dohle Bodies Platelet Estimate Low L Platelet Morphology Enlarged H RBC Morphology Ovalocytes 1+ H Puncture Site Patient Temperature O2 Saturation ABG pH ABG pCO2 ABG pO2 ABG HCO3 ABG O2 Content ABG Base Excess ABG Methemoglobin Hemoglobin Carboxyhemoglobin O2 Delivery Device Vent Setting Inspired O2 Critical Value Sodium Potassium Chloride Carbon Dioxide Anion Gap BUN Creatinine Estimated GFR POC Glucose 168 H 225 H Random Glucose Lactic Acid Calcium Prot Corrected Calcium Total Bilirubin AST ALT Alkaline Phosphatase Total Protein Albumin Prealbumin Random Vancomycin Blood Type Antibody Screen MTS Gel Crossmatch Bld Prod Order Comment 12/19/17 12/20/17 12/20/17 19:49 00:49 03:31 WBC RBC Hgb Hct MCV MCH MCHC RDW Plt Count MPV Prelim Diff (Auto) Neut % (Auto) Lymph % (Auto) Conway % (Auto) Eos % (Auto) Baso % (Auto) Neut # (Auto) Lymph # (Auto) Conway # (Auto) Eos # (Auto) Baso # (Auto) WBC Differential Seg Neuts % (Manual) Band Neuts % (Manual) Lymphocytes % (Manual) Monocytes % (Manual) Eosinophils % (Manual) Metamyelocytes % (Man) Myelocytes % (Man) Promyelocytes % (Man) Abs Neuts (Manual) Nucleated RBCs/100 WBC Differential Comment Toxic Granulation Toxic Vacuolation Dohle Bodies Platelet Estimate Platelet Morphology RBC Morphology Ovalocytes Puncture Site Patient Temperature O2 Saturation ABG pH ABG pCO2 ABG pO2 ABG HCO3 ABG O2 Content ABG Base Excess ABG Methemoglobin Hemoglobin Carboxyhemoglobin O2 Delivery Device Vent Setting Inspired O2 Critical Value Sodium Potassium Chloride Carbon Dioxide Anion Gap BUN Creatinine Estimated GFR POC Glucose 286 H 223 H 209 H Random Glucose Lactic Acid Calcium Prot Corrected Calcium Total Bilirubin AST ALT Alkaline Phosphatase Total Protein Albumin Prealbumin Random Vancomycin Blood Type Antibody Screen MTS Gel Crossmatch Bld Prod Order Comment 12/20/17 12/20/17 12/20/17 04:30 04:30 11:01 WBC 20.2 H RBC 3.75 L Hgb 11.2 L Hct 32.6 L MCV 86.9 MCH 29.7 MCHC 34.2 RDW 16.2 Plt Count 82 L MPV 8.1 Prelim Diff (Auto) Slide review pending Neut % (Auto) 79.5 H Lymph % (Auto) 18.4 Conway % (Auto) 1.1 Eos % (Auto) 0.4 Baso % (Auto) 0.6 Neut # (Auto) 16.1 H Lymph # (Auto) 3.7 Conway # (Auto) 0.2 Eos # (Auto) 0.1 Baso # (Auto) 0.1 WBC Differential Manual diff final Seg Neuts % (Manual) 75 H Band Neuts % (Manual) 4 Lymphocytes % (Manual) 18 Monocytes % (Manual) 1 Eosinophils % (Manual) Metamyelocytes % (Man) 2 H Myelocytes % (Man) Promyelocytes % (Man) Abs Neuts (Manual) 16.4 H Nucleated RBCs/100 WBC Differential Comment . Toxic Granulation Toxic Vacuolation Dohle Bodies Platelet Estimate Low L Platelet Morphology Normal RBC Morphology Normal Ovalocytes Puncture Site Patient Temperature O2 Saturation ABG pH ABG pCO2 ABG pO2 ABG HCO3 ABG O2 Content ABG Base Excess ABG Methemoglobin Hemoglobin Carboxyhemoglobin O2 Delivery Device Vent Setting Inspired O2 Critical Value Sodium 138 Potassium 3.4 L Chloride 106 Carbon Dioxide 19.2 L Anion Gap 13 BUN 23 H Creatinine 1.06 H Estimated GFR 54 L POC Glucose 94 Random Glucose 195 H Lactic Acid Calcium 7.3 L* Prot Corrected Calcium 7.7 L Total Bilirubin 1.0 AST 10 L ALT Less than 6 L Alkaline Phosphatase 314 H Total Protein 6.3 L D Albumin 1.3 L Prealbumin Random Vancomycin Blood Type Antibody Screen MTS Gel Crossmatch Bld Prod Order Comment Result Diagrams: 12/20/17 04:30 12/20/17 04:30 Microbiology: Microbiology 12/15/17 06:30 Aerobic Blood Culture - Final Blood - Peripheral No growth in 5 days Anaerobic Blood Culture - Final No growth in 5 days 12/15/17 06:45 Aerobic Blood Culture - Final Blood - Peripheral No growth in 5 days Anaerobic Blood Culture - Final No growth in 5 days Procedures: 12/18/2017: I&D of sacrum and thigh, wound VAC change 12/15/2017: Endotracheal intubation 12/15/2017: Left subclavian central line placement 12/15/2017: NGT placement Assessment and Plan - Disease Oriented Problem List (1) Septic shock with acute organ dysfunction due to anaerobic bacteria (2) Acute respiratory failure (3) Type 2 diabetes mellitus with hyperosmolar nonketotic hyperglycemia (4) Necrotizing fasciitis (5) MARIO (acute kidney injury) (6) Lactic acidosis Pertinent Non-Medical Issues: Psychosocial: Originally from [place]. Currently . Spiritual: No baptism affiliations. Legal: Per [place] statutes, in the absence of written advanced directives health care proxy decision making will fall to the patient's , Tyrone. Ethical issues impacting care: No known ethical issues impacting care at this time. Important Contacts: Tyrone Middleton, : [phone] Sister Linette Lebron , Prognosis: Patient is critically ill and in septic shock with necrotizing fasciitis secondary to a chronic sacral decubitus. Upon arrival to the ED, the patient was hyperglycemic with a blood glucose of 610, severely dehydrated and in profound shock. She is intubated on mechanical ventilation requiring pressor support status post wide excision of the involved soft tissue. Patient will require further debridement in the future. She remains hemodynamically unstable and critically ill. Very high risk for further complications, continue decline and . Very poor overall prognosis for survival. Code Status: Full Code Plan: * CODE STATUS: FULL CODE * HEALTHCARE DECISION-MAKING: Patient lacks insight and judgment related to her complicated clinical condition. It is unclear if she will regain capacity for medical decision-making. Per [place] statute, in the absence of written advanced directives healthcare proxy decision making falls to the patient's , Tyrone Middleton. * GOALS OF CARE: Patient's verbalizing aggressive goals stating, "I think she would want everything done to live. Besides, it is too early to know. She was like this the last time she was in the hospital too." Has been requests we do "everything"we can to keep her alive. is supported by patient's family, Sister Linette and patient's mother to visit patient from [place] in the incoming days. * Palliative care contact information was provided to the patient's and sister. * Symptom management: Pain: Multifactoral. Patient has a long history of chronic conditions. She is currently sedated with fentanyl and propofol. Possible contributing factors include severe peripheral arterial disease, recent BKA, peripheral neuropathy, sepsis, necrotizing fasciitis, invasive lines, immobility. No recommendations at this time. We will continue to monitor. Debility: Patient with uncontrolled diabetes with severe peripheral arterial disease and smoking. Patient has had several hospitalizations/ED visits in the past year. 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 Patient went to live with her family in [place] after her last hospitalization but returned to [place] in the past few weeks. Patient's states she is alone much of the time because he works so much. He states she has a history of non-compliance with her medical regimen and is no longer able to care for herself at home. * Palliative care will continue to follow this patient throughout her hospitalization to establish trust, assist with symptom management and clarification of medical treatment goals. Time Spent Total Floor Time (mins): 22 (Total time to include review medical records, physical exam, telephone call to patient , case discussion with surgery and bedside RN.) >50% Time in Counseling or Coordination of Care: Yes (Total visit time = 22 minutes; > 50% spent counseling/coordinating care) Attestation Attestation: To help prompt me to consider important information that might be impacting today's encounter and assessment, information from prior notes written by myself or my colleagues may have been "brought forward" into today's note. My signature on this note, however, is an attestation that I personally performed the exam, history, and/or decision-making noted today, and, unless otherwise indicated, the interactions with patient, family, and staff as well as the review of records all occurred today. I also attest that the listed assessment and stated plan reflect my best clinical judgment today based on the combination of historical information, prior notes, and today's exam/ interactions. When time spent is documented, it refers only to time spent today by the signer, or if indicated, combined time spent today by collaborating physician/nurse practitioner.
--- NOTE | 2017-12-20 15:51 | ECG ---
Date Performed: 12/19/2017 Time Performed: 17:20:06 PTAGE: 52 years EKG: Sinus tachycardia. Lateral T wave changes may be due to myocardial ischemia Generalized low QRS voltages When compared to previous tracing, sinus rate is faster. Abnormal ECG PREVIOUS TRACING : 12/17/2017 15.17 DOCTOR: Shade Johnson Interpretating Date/Time 12/20/2017 15:49:31
--- NOTE | 2017-12-20 15:53 | ECG ---
Date Performed: 12/19/2017 Time Performed: 17:30:32 PTAGE: 52 years EKG: Possible ectopic atrial tachycardia with PAC(s). rSr'(V1) - probable normal variant Extensi ve ST-T changes suggest myocardial injury/ischemia Generalized low QRS voltages When comparedf to pre vious tracing, ectopy has increased. There does appear to be organized atrial activity, likely multif ocal Atrial tachycardia. Abnormal ECG PREVIOUS TRACING : 12/19/2017 17.20 DOCTOR: Shade Johnson Interpretating Date/Time 12/20/2017 15:51:52
--- NOTE | 2017-12-20 15:54 | ECG ---
Date Performed: 12/19/2017 Time Performed: 17:55:42 PTAGE: 52 years EKG: Possible atrial flutter with rapid ventricular response. ST junctional depression is nonspe cific Generalized low QRS voltages When compared to previous tracing, rhythm is now atrial flutter. A bnormal ECG PREVIOUS TRACING : 12/19/2017 17.30 DOCTOR: Shade Johnson Interpretating Date/Time 12/20/2017 15:53:07
[2017-12-20 19:57] LABS: Bacteria,Urine Occasional /hpf; Bilirubin,Urine Negative (Negative); Clarity,Urine Hazy (Clear); Color,Urine Yellow (Yellw/Straw); Glucose,Urine (UA) Negative (Negative); Hyaline Casts,Urine 18 /lpf (0-3); Leukocyte Esterase,Urine Trace (Negative); Mucus,Urine Few /lpf (Occasional); Nitrite,Urine Negative (Negative); Specific Gravity,Urine 1.012 (1.002-1.035); Squamous Epithelial Cell,Urine 1 /hpf (0-5)
[2017-12-20] MEDS: Vancomycin Inj 1,500 MG in Sodium Chlor 0.9% Inj 500 ML IV.SIG SCH (23:46)
[2017-12-21] MEDS: Clindamycin 900 mg/NS Premix 900 MG/50 ML PIGGYBACK IV.SIG SCH ×3 (03:20→20:00)
[2017-12-21] MEDS: Chlorhexidine Gluconate 2% 1 Pack (2 Cloths) TOPICAL SCH (03:21)
[2017-12-21] MEDS: Oral Hygiene Kit OROPHARYNG SCH ×3 (03:22→16:30)
[2017-12-21] MEDS: Insulin NovoLIN Regular Correctional Sugar Inj SQ SCH ×5 (03:52→21:05)
[2017-12-21] MEDS: Propofol 1000 mg/100 ml Inj 1,000 MG/100 ML BOTTLE IV.CONT PRN ×2 (03:53→13:05)
[2017-12-21] MEDS: Vasopressin Inj 40 UNIT in Sodium Chlor 0.9% Inj 98 ML IV.CONT SCH ×2 (05:24→22:06)
[2017-12-21 06:04] LABS: Baso # (Auto) 0.1 th/mm3 (0.0-0.2); Baso % (Auto) 0.4 % (0.0-2.0); Eos # (Auto) 0.2 th/mm3 (0.0-0.4); Eos % (Auto) 0.7 % (0.0-4.0); Hematocrit 31.5 % (35.0-46.0); Hemoglobin 11.1 gm/dL (11.6-15.3); Lymph # (Auto) 3.2 th/mm3 (1.0-4.8); Mean Corpuscular HGB Conc 35.1 % (32.0-36.0); Mean Corpuscular Hemoglobin 30.5 pg (27.0-34.0); Mean Corpuscular Volume 86.7 fL (80.0-100.0); Mean Platelet Volume 8.9 fL (7.0-11.0); Mono # (Auto) 0.3 th/mm3 (0.0-0.9); Mono % (Auto) 1.2 % (0.0-8.0); Neut # (Auto) 20.8 th/mm3 (1.8-7.7); Neut % (Auto) 84.7 % (16.0-70.0); Platelet Count 79 th/mm3 (150-450); Red Blood Count 3.63 mil/mm3 (4.00-5.30); Red Cell Distribution Width 16.1 % (11.6-17.2); White Blood Count 24.5 th/mm3 (4.0-11.0)
[2017-12-21 06:41] LABS: Albumin 1.1 g/dL (3.4-5.0); Potassium 3.5 meq/L (3.5-5.1); Total Protein 6.2 g/dL (6.4-8.2)
[2017-12-21] MEDS: Dextrose 5%/Lactated Ringer's 1,000 ML IV.CONT SCH ×3 (07:01→21:41)
[2017-12-21 07:59] LABS: Eosinophils 1 % (0-4); Lymphocytes 7 % (9-44); Monocytes 5 % (0-8); Myelocytes 1 % (0-0); Promyelocyte 1 % (0-0)
[2017-12-21 08:00] LABS: RBC Morphology Normal (Normal)
[2017-12-21] MEDS: Chlorhexidine 0.12% Oral Kit 15 ML UDC OROPHARYNG SCH ×2 (08:53→21:33)
[2017-12-21] MEDS: Mupirocin 2% Nasal Oint Topical Syringe EACH NARE SCH ×2 (08:53→21:33)
[2017-12-21] MEDS: Senna/Docusate Sodium 8.6/50 MG Tablet PO SCH ×2 (09:54→21:35)
[2017-12-21] MEDS: Famotidine PF Inj 20 MG/2 ML Vial IV.PUSH SCH ×2 (09:54→21:32)
[2017-12-21 10:53] LABS: ABG PCO2 28 mmHg (38-42); ABG PO2 239 mmHg (61-120)
--- NOTE | 2017-12-21 11:40 | P.PNCC ---
Subjective Subjective Remarks/Hospital Course: This 52-year-old woman with long-standing uncontrolled diabetes mellitus and severe peripheral arterial disease related to a long-term heavy smoking history was found down at her home and initial blood glucose was 610. Her lower back and buttocks was exquisitely tender and a mid line stage IV sacral decubitus was oozing purulent material and inflamed and the surrounding soft tissue. White count was not elevated but 90% neutrophils. Temperature 97 degrees. Moderately encephalopathic though conversant. X-rays revealed no fractures in the pelvis but CAT scan demonstrated extensive subcutaneous air emanating in both directions left and right from the mid sacral region. This is clearly necrotizing fasciitis or some other gas-forming infection and the woman is critically ill. She received vancomycin, Zosyn, and clindamycin antibiotic therapy as quickly as possible and was transferred to the ICU for ongoing resuscitation. Because of worsening hemodynamic stability she required intubation and mechanical ventilation followed by central line placement on arrival to the ICU. Insulin drip infusion was started in the emergency department and glucose had declined into the low 400s. She was not in ketoacidosis but lactic acid was elevated at 3.1. General surgery and orthopedic surgery were consulted for recommendations and it was felt that this woman was too unstable to tolerate an operative procedure immediately. We continue her ongoing resuscitation and trial in the ICU at this stage. 12/16: Following aggressive resuscitation yesterday for the treatment of severe hyperglycemia, septic shock, respiratory failure, metabolic acidosis, acute kidney injury, the patient went to the operating room with an extensive wide debridement bilateral gluteal and left thigh soft tissue and muscle. Primary antibiotic coverage at this point is vancomycin, cefepime, clindamycin. The patient started to make urine late yesterday afternoon and has continued to acceptable output since. Lactic acidosis is 2.0 this morning but metabolic acidosis persists despite bicarb drip. She remains on vasopressor support and hemodynamically unstable. 12/17: s/p debridement of large nec fasc wound. remains in shock today. also very hypoglycemic requiring multiple D50 amps overnight. 12/18: back in worsening shock. vasopressor support higher. required 2L crystalloid overnight and additional 1L and 500cc albumin today. ivc completely flat on bedside echo. LVEF hyperdynamic. no pericardial effusion. spoken with gen surg. plan to go back early to eval for worsening necrosis. fio2 also up to 100% and peep 10- hypoxic, likely early ARDS. 12/19: clinically doing better. still in shock on vasopressors, but requirements are lower and lactate cleared. Cr slowly uptrending. SVV still 19% today and appears to be volume responsive. gen surgery ordered 2 units prbc for falling hgb in the setting of blood loss with surgical intervention yesterday. fio2 improving. glycemic control also improving. 12/20: Markedly impaired oxygenation persists. Still requiring elevated end expiratory pressure. Nutritional support continues but she remains catabolic. It will be difficult to keep up with her nutritional needs. 12/21: Continued severe sepsis requiring vasopressor support and mechanical ventilation. Oxygenation remains impaired and smoldering metabolic acidosis persists. Despite hemodynamic instability the patient's only hope for survival is with infection source control through further debridement. Clearly a greatly increased risk however for any procedure. Objective Vital Signs / I&O: Vital Signs 12/20/17 11:37 12/20/17 12:00 12/20/17 14:00 Temperature 98.0 F Pulse Rate 86 96 H Respiratory Rate 22 22 Pulse Oximetry 98 97 12/20/17 16:00 12/20/17 16:52 12/20/17 16:53 Temperature 98.8 F Pulse Rate 92 H Respiratory Rate 22 22 22 Pulse Oximetry 96 95 12/20/17 19:00 12/20/17 19:15 12/20/17 19:30 Temperature 99.9 F H 100.0 F H 100.2 F H Pulse Rate 109 H 109 H 110 H Respiratory Rate 22 22 22 Pulse Oximetry 98 98 97 12/20/17 19:45 12/20/17 20:00 12/20/17 20:15 Temperature 100.2 F H 100.2 F H 100.2 F H Pulse Rate 110 H 109 H 108 H Respiratory Rate 22 22 16 Pulse Oximetry 98 98 100 12/20/17 20:19 12/20/17 20:30 12/20/17 20:45 Temperature 100.0 F H 99.9 F H Pulse Rate 107 H 106 H 112 H Respiratory Rate 23 22 22 Pulse Oximetry 97 98 98 12/20/17 21:00 12/20/17 21:15 12/20/17 21:30 Temperature 99.9 F H 100.0 F H 100.0 F H Pulse Rate 114 H 109 H 112 H Respiratory Rate 22 22 22 Pulse Oximetry 98 98 98 12/20/17 21:45 12/20/17 22:00 12/20/17 22:15 Temperature 100.0 F H 100.0 F H 100.2 F H Pulse Rate 111 H 98 H 90 Respiratory Rate 22 22 22 Pulse Oximetry 98 98 98 12/20/17 22:30 12/20/17 22:45 12/20/17 23:00 Temperature 100.2 F H 100.2 F H 100.4 F H Pulse Rate 95 H 95 H 103 H Respiratory Rate 22 22 22 Pulse Oximetry 98 98 97 12/20/17 23:15 12/20/17 23:27 12/20/17 23:30 Temperature 100.4 F H 100.2 F H Pulse Rate 110 H 105 H Respiratory Rate 22 22 22 Pulse Oximetry 97 98 98 12/20/17 23:45 12/20/17 23:51 12/21/17 00:00 Temperature 100.2 F H 100.2 F H Pulse Rate 103 H 107 H Respiratory Rate 22 24 Pulse Oximetry 97 97 97 12/21/17 00:15 12/21/17 00:30 12/21/17 00:45 Temperature 100.2 F H 100.2 F H 100.2 F H Pulse Rate 111 H 109 H 110 H Respiratory Rate 22 22 22 Pulse Oximetry 97 98 98 12/21/17 01:00 12/21/17 01:15 12/21/17 01:30 Temperature 100.2 F H 100.0 F H 100.0 F H Pulse Rate 106 H 101 H 97 H Respiratory Rate 22 22 22 Pulse Oximetry 98 98 97 12/21/17 01:45 12/21/17 02:00 12/21/17 02:15 Temperature 99.9 F H 99.9 F H 100.0 F H Pulse Rate 98 H 95 H 96 H Respiratory Rate 22 22 22 Pulse Oximetry 97 97 98 12/21/17 02:30 12/21/17 02:45 12/21/17 03:00 Temperature 99.9 F H 99.9 F H 99.9 F H Pulse Rate 87 85 86 Respiratory Rate 22 22 22 Pulse Oximetry 98 98 98 12/21/17 03:15 12/21/17 03:30 12/21/17 03:45 Temperature 99.9 F H 99.9 F H 99.9 F H Pulse Rate 89 109 H 102 H Respiratory Rate 22 21 22 Pulse Oximetry 98 98 99 12/21/17 04:00 12/21/17 04:10 12/21/17 04:15 Temperature 99.7 F H 99.9 F H Pulse Rate 104 H 96 H Respiratory Rate 22 22 22 Pulse Oximetry 98 98 99 12/21/17 07:37 Temperature Pulse Rate 102 H Respiratory Rate 22 Pulse Oximetry 98 Intake & Output 12/20/17 12/21/17 12/21/17 18:59 06:59 18:59 Intake Total 1196 / 1196 2335 / 2335 Output Total 3050 / 3050 2450 / 2450 Balance -1854 / -1854 -115 / -115 Weight 76.3 kg Intake: IV 956 / 956 2014 D5W/LR Inj 1,000 ML @ 75 mls/hr 1000 / 1000 IV.CONT .[id number] RICARDO Rx#: [id number] Neosynephrine Inj 40 MG In D5W 500 / 500 Inj 496 ML @ 40 MCG/MIN 30 mls/ hr IV.CONT TITRATE PRN Rx#: [id number] Diprivan 1000 mg/100 ml Inj 1, 52 / 52 200 / 200 000 mg In 100 ml @ 5 MCG/KG/MIN 1.837 mls/hr IV.CONT TITRATE PRN Rx#:[id number] Pitressin Inj 40 UNIT In NS Inj 65 / 65 100 / 100 98 ML @ 0.04 UNITS/MIN 6 mls/ hr IV.CONT CONT RICARDO Rx#: [id number] Maxipime Inj 2,000 MG In NS Inj 100 / 100 100 / 100 100 ML @ 200 mls/hr IV.SIG Q12H RICARDO Rx#:[id number] Cleocin 900 mg/NS Premix 900 mg 50 / 50 100 / 100 In 50 ml @ 100 mls/hr IV.SIG Q8H RICARDO Rx#:[id number] Vancomycin Inj 1,500 MG In NS 515 / 515 Inj 500 ML @ 250 mls/hr IV.SIG Q36H RICARDO Rx#:[id number] fentaNYL 10 mcg/mL Premix Drip 189 / 189 2,500 mcg In 250 ml @ 50 MCG/HR 5 mls/hr IV.SIG TITRATE PRN Rx #:[id number] Tube Feeding 240 / 240 120 / 120 Tube Irrigant 200 / 200 Output: Urine Amount (Catheter) 2200 / 2200 1500 / 1500 1 2200 / 2200 1500 / 1500 Gastric Drainage 0 / 0 0 / 0 Nasogastric Tube 0 / 0 0 / 0 Wound Vac Amount 850 / 850 950 / 950 Posterior Sacrum 850 / 850 950 / 950 Other: Mode Setting Posterior Sacrum Continuous Continuous Date of Last Bowel Movement 12/20/17 12/20/17 # Bowel Movements 1 2 # Incontinent Bowel Movements 2 Result Diagrams: 12/21/17 05:10 12/21/17 05:10 Objective Remarks: General: Ill-appearing middle-aged woman, intubated and sedated Head: Atraumatic, normal, edentulous Neck: Supple, orotracheal intubation Lungs: equal chest rise. Scattered rhonchi. Prvc. fio2 50%. peep 8. Heart: tachycardic rate and regular rhythm. no JVD. Abdomen: Soft, no guarding, no peritoneal irritation. Quiet Back: Wound VAC in place over lower lumbar region there is a moderate erythema to the skin over the pelvis and buttocks. Midline sacral stage IV decubitus has been debrided. Extremities: Tepid, adequately perfused, status post below-knee amputation right side, necrotic ulceration over several toes left foot Neurological: Intubated and sedated she moves 4 limbs to stimulation. Pupils responsive. Cough, gag intact. Assessment and Plan - Problem List (1) Septic shock with acute organ dysfunction due to anaerobic bacteria Code(s): A41.4 - Sepsis due to anaerobes; R65.21 - Severe sepsis with septic shock Status: Acute (2) Acute respiratory failure Code(s): J96.00 - Acute respiratory failure, unspecified whether with hypoxia or hypercapnia Status: Acute (3) Necrotizing fasciitis Code(s): M72.6 - Necrotizing fasciitis Status: Acute (4) Type 2 diabetes mellitus with hyperosmolar nonketotic hyperglycemia Code(s): E11.01 - Type 2 diabetes mellitus with hyperosmolarity with coma Status: Acute (5) MARIO (acute kidney injury) Code(s): N17.9 - Acute kidney failure, unspecified Status: Acute (6) Lactic acidosis Code(s): E87.2 - Acidosis Status: Acute - Assessment and Plan Plan: Assessment: 52yF with large necrotizing soft tissue infection of the lower back and sacrum complicated by septic shock and multiorgan dysfunction. Continued vasopressors, ivf, and antibiotics. plan for re-evaluation surgically on Sunday. remains critically ill in ongoing shock. Plan: Neurological Acute metabolic encephalopathy -Sedation with propofol -Analgesia with fentanyl -Encephalopathy largely due to sepsis and hyperglycemia - RASS goal -2. Cardiovascular Septic Shock- persistent Myocardial dysfunction secondary to septic shock -levophed, vasopresin for goal map > 65 mmHg. - d/c milrinone today. Flowtrack suggesting CI > 3.5. if she needs additional inotropic therapy may benefit from epinephrine or dobutamine. -2 units of prbc for ongoing blood loss and anemia will help with intravascular volume expansion as well. -Follow acid-base balance closely Respiratory Acute hypoxic and hypercarbic respiratory failure- persistent -Intubation and mechanical ventilation -Bronchodilators - HOB elevated - vent bundle - wean fio2 for goal spo2 > 90% - no weaning of mechanical ventilation until shock improves -Repeat chest x-ray -Reduce PEEP to 8 Endocrinology Diabetes Severe hypoglycemia - hold levemir - transition from insulin drip to q4h med scale SSI. Hematology/Infectious Disease Septic Shock Necrotizing soft tissue infection -Obvious infection. -Follow white count and platelet count closely - abx per ID. continue clindamycin until third debridement rules out further extension of necrosis. (second debridement revealed ongoing necrosis) - daily cbc GI Acute protein calorie malnutrition- severe - NPO while in shock - NG tube to LIWS - prealbumin 5 on 12/18. severely malnourished. - daily bmp, mg, phos Acute kidney injury -Tristan required for hourly urine output -High risk for further deterioration in renal function -Needs Tristan at this time to protect perineal region, removed shortly. Prophylaxis -Pepcid for GI ulcer prophylaxis -SCDs for DVT prophylaxis -Hold chemical DVT prophylaxis until ongoing surgical decisions regarding further debridement are made Lines: Left subclavian central venous line placed 12/15 Overall impression: This woman is critically ill and in septic shock with necrotizing fasciitis emanating from a deep chronic sacral decubitus. She remains hemodynamically stable and requiring vasopressor support. Peripheral perfusion is acceptable and urine output good. She is a greatly increased risk for surgical procedure but debridement of necrotic tissue for control of infection is necessary if at all possible. Critical care 42 minutes
[2017-12-21] MEDS ORDERED: Albumin Human 25% Inj 50 ML IV.SIG ONE (12:12)
[2017-12-21] MEDS ORDERED: Calcium Chloride Inj 1 GM/10 ML Syringe ONE (12:12)
--- NOTE | 2017-12-21 12:16 | P.PNID ---
Subjective Remarks: Discussed with RN. Sedated. On the ventilator. Patient currently on vasopressin and phenylephrine. Blood pressure decreases with attempts to wean the pressors. Blood culture has no growth. Low-grade fever. WBC remain elevated. Due to go for vacuum change today. Urine culture pending. Post debridement 01/18/2018. This is a 52-year-old white female who was brought to the emergency department after she fell at home. The patient was noted to have profound weakness. She was evaluated in the emergency department and at that time had normal temperature and white blood cell count was also normal. She underwent CT scan of the abdomen and pelvis that showed extensive subcutaneous and soft tissue gas bilaterally with the left greater than right, most severe in the left gluteal region and extending into the proximal posterior thigh soft tissue and air-fluid dissecting through the gluteal musculature. The patient has a history of diabetes mellitus. Antibiotics: Clindamycin. Vancomycin Cefepime. Allergies/Adverse Reactions: Allergies No Known Allergies Allergy (Verified 12/15/17 07:54) Objective Vital Signs 12/20/17 14:00 12/20/17 16:00 12/20/17 16:52 Temperature 98.8 F Pulse Rate 96 H 92 H Respiratory Rate 22 22 Pulse Oximetry 96 95 12/20/17 16:53 12/20/17 19:00 12/20/17 19:15 Temperature 99.9 F H 100.0 F H Pulse Rate 109 H 109 H Respiratory Rate 22 22 22 Pulse Oximetry 98 98 12/20/17 19:30 12/20/17 19:45 12/20/17 20:00 Temperature 100.2 F H 100.2 F H 100.2 F H Pulse Rate 110 H 110 H 109 H Respiratory Rate 22 22 22 Pulse Oximetry 97 98 98 12/20/17 20:15 12/20/17 20:19 12/20/17 20:30 Temperature 100.2 F H 100.0 F H Pulse Rate 108 H 107 H 106 H Respiratory Rate 16 23 22 Pulse Oximetry 100 97 98 12/20/17 20:45 12/20/17 21:00 12/20/17 21:15 Temperature 99.9 F H 99.9 F H 100.0 F H Pulse Rate 112 H 114 H 109 H Respiratory Rate 22 22 22 Pulse Oximetry 98 98 98 12/20/17 21:30 12/20/17 21:45 12/20/17 22:00 Temperature 100.0 F H 100.0 F H 100.0 F H Pulse Rate 112 H 111 H 98 H Respiratory Rate 22 22 22 Pulse Oximetry 98 98 98 12/20/17 22:15 12/20/17 22:30 12/20/17 22:45 Temperature 100.2 F H 100.2 F H 100.2 F H Pulse Rate 90 95 H 95 H Respiratory Rate 22 22 22 Pulse Oximetry 98 98 98 12/20/17 23:00 12/20/17 23:15 12/20/17 23:27 Temperature 100.4 F H 100.4 F H Pulse Rate 103 H 110 H Respiratory Rate 22 22 22 Pulse Oximetry 97 97 98 12/20/17 23:30 12/20/17 23:45 12/20/17 23:51 Temperature 100.2 F H 100.2 F H Pulse Rate 105 H 103 H Respiratory Rate 22 22 Pulse Oximetry 98 97 97 12/21/17 00:00 12/21/17 00:15 12/21/17 00:30 Temperature 100.2 F H 100.2 F H 100.2 F H Pulse Rate 107 H 111 H 109 H Respiratory Rate 24 22 22 Pulse Oximetry 97 97 98 12/21/17 00:45 12/21/17 01:00 12/21/17 01:15 Temperature 100.2 F H 100.2 F H 100.0 F H Pulse Rate 110 H 106 H 101 H Respiratory Rate 22 22 22 Pulse Oximetry 98 98 98 12/21/17 01:30 12/21/17 01:45 12/21/17 02:00 Temperature 100.0 F H 99.9 F H 99.9 F H Pulse Rate 97 H 98 H 95 H Respiratory Rate 22 22 22 Pulse Oximetry 97 97 97 12/21/17 02:15 12/21/17 02:30 12/21/17 02:45 Temperature 100.0 F H 99.9 F H 99.9 F H Pulse Rate 96 H 87 85 Respiratory Rate 22 22 22 Pulse Oximetry 98 98 98 12/21/17 03:00 12/21/17 03:15 12/21/17 03:30 Temperature 99.9 F H 99.9 F H 99.9 F H Pulse Rate 86 89 109 H Respiratory Rate 22 22 21 Pulse Oximetry 98 98 98 12/21/17 03:45 12/21/17 04:00 12/21/17 04:10 Temperature 99.9 F H 99.7 F H Pulse Rate 102 H 104 H Respiratory Rate 22 22 22 Pulse Oximetry 99 98 98 12/21/17 04:15 12/21/17 07:37 Temperature 99.9 F H Pulse Rate 96 H 102 H Respiratory Rate 22 22 Pulse Oximetry 99 98 Intake & Output 12/20/17 12/21/17 12/21/17 18:59 06:59 18:59 Intake Total 1196 / 1196 2335 / 2335 Output Total 3050 / 3050 2450 / 2450 Balance -1854 / -1854 -115 / -115 Weight 76.3 kg Intake: IV 956 / 956 2014 D5W/LR Inj 1,000 ML @ 75 mls/hr 1000 / 1000 IV.CONT .[id number] RICARDO Rx#: [id number] Neosynephrine Inj 40 MG In D5W 500 / 500 Inj 496 ML @ 40 MCG/MIN 30 mls/ hr IV.CONT TITRATE PRN Rx#: [id number] Diprivan 1000 mg/100 ml Inj 1, 52 / 52 200 / 200 000 mg In 100 ml @ 5 MCG/KG/MIN 1.837 mls/hr IV.CONT TITRATE PRN Rx#:[id number] Pitressin Inj 40 UNIT In NS Inj 65 / 65 100 / 100 98 ML @ 0.04 UNITS/MIN 6 mls/ hr IV.CONT CONT RICARDO Rx#: [id number] Maxipime Inj 2,000 MG In NS Inj 100 / 100 100 / 100 100 ML @ 200 mls/hr IV.SIG Q12H RICARDO Rx#:[id number] Cleocin 900 mg/NS Premix 900 mg 50 / 50 100 / 100 In 50 ml @ 100 mls/hr IV.SIG Q8H RICARDO Rx#:[id number] Vancomycin Inj 1,500 MG In NS 515 / 515 Inj 500 ML @ 250 mls/hr IV.SIG Q36H RICARDO Rx#:[id number] fentaNYL 10 mcg/mL Premix Drip 189 / 189 2,500 mcg In 250 ml @ 50 MCG/HR 5 mls/hr IV.SIG TITRATE PRN Rx #:[id number] Tube Feeding 240 / 240 120 / 120 Tube Irrigant 200 / 200 Output: Urine Amount (Catheter) 2200 / 2200 1500 / 1500 1 2200 / 2200 1500 / 1500 Gastric Drainage 0 / 0 0 / 0 Nasogastric Tube 0 / 0 0 / 0 Wound Vac Amount 850 / 850 950 / 950 Posterior Sacrum 850 / 850 950 / 950 Other: Mode Setting Posterior Sacrum Continuous Continuous Date of Last Bowel Movement 12/20/17 12/20/17 # Bowel Movements 1 2 # Incontinent Bowel Movements 2 12/20/17 18:00 Catheterized Urine Urine Culture - Pending 12/15/17 06:30 Blood - Peripheral Aerobic Blood Culture - Final No growth in 5 days 12/15/17 06:30 Blood - Peripheral Anaerobic Blood Culture - Final No growth in 5 days 12/15/17 06:45 Blood - Peripheral Aerobic Blood Culture - Final No growth in 5 days 12/15/17 06:45 Blood - Peripheral Anaerobic Blood Culture - Final No growth in 5 days Lab - Hematology Results 12/19/17 12/20/17 12/21/17 15:21 04:30 05:10 WBC 20.2 H 20.2 H 24.5 H RBC 3.65 L 3.75 L 3.63 L Hgb 11.0 L D 11.2 L 11.1 L Hct 32.2 L 32.6 L 31.5 L MCV 88.2 D 86.9 86.7 MCH 30.1 29.7 30.5 MCHC 34.2 34.2 35.1 RDW 16.5 16.2 16.1 Plt Count 82 L 82 L 79 L MPV 7.9 8.1 8.9 Prelim Diff (Auto) Slide review pending Slide review pending Slide review pending Neut % (Auto) 86.1 H 79.5 H 84.7 H Lymph % (Auto) 11.8 18.4 13.0 Moore % (Auto) 1.4 1.1 1.2 Eos % (Auto) 0.3 0.4 0.7 Baso % (Auto) 0.4 0.6 0.4 Neut # (Auto) 17.4 H 16.1 H 20.8 H Lymph # (Auto) 2.4 3.7 3.2 Moore # (Auto) 0.3 0.2 0.3 Eos # (Auto) 0.1 0.1 0.2 Baso # (Auto) 0.1 0.1 0.1 WBC Differential Manual diff final Manual diff final Manual diff final Seg Neuts % (Manual) 73 H 75 H 79 H Band Neuts % (Manual) 10 H 4 6 Lymphocytes % (Manual) 13 18 7 L Monocytes % (Manual) 3 1 5 Eosinophils % (Manual) 1 1 Metamyelocytes % (Man) 2 H Myelocytes % (Man) 1 H Promyelocytes % (Man) 1 H Abs Neuts (Manual) 16.8 H 16.4 H 21.3 H Differential Comment . . . Toxic Granulation 1+ H Platelet Estimate Low L Low L Low L Platelet Morphology Enlarged H Normal Enlarged H RBC Morphology Normal Normal Ovalocytes 1+ H Lab - Chemistry Results 12/19/17 12/19/17 12/19/17 12:08 15:06 16:03 Sodium Potassium Chloride Carbon Dioxide Anion Gap BUN Creatinine Estimated GFR POC Glucose 142 H 168 H 225 H Random Glucose Calcium Prot Corrected Calcium Total Bilirubin AST ALT Alkaline Phosphatase Total Protein Albumin 12/19/17 12/20/17 12/20/17 19:49 00:49 03:31 Sodium Potassium Chloride Carbon Dioxide Anion Gap BUN Creatinine Estimated GFR POC Glucose 286 H 223 H 209 H Random Glucose Calcium Prot Corrected Calcium Total Bilirubin AST ALT Alkaline Phosphatase Total Protein Albumin 12/20/17 12/20/17 12/20/17 04:30 11:01 17:23 Sodium 138 Potassium 3.4 L Chloride 106 Carbon Dioxide 19.2 L Anion Gap 13 BUN 23 H Creatinine 1.06 H Estimated GFR 54 L POC Glucose 94 134 H Random Glucose 195 H Calcium 7.3 L* Prot Corrected Calcium 7.7 L Total Bilirubin 1.0 AST 10 L ALT Less than 6 L Alkaline Phosphatase 314 H Total Protein 6.3 L D Albumin 1.3 L 12/20/17 12/20/17 12/21/17 19:35 23:39 03:42 Sodium Potassium Chloride Carbon Dioxide Anion Gap BUN Creatinine Estimated GFR POC Glucose 204 H 264 H 271 H Random Glucose Calcium Prot Corrected Calcium Total Bilirubin AST ALT Alkaline Phosphatase Total Protein Albumin 12/21/17 05:10 Sodium 134 L Potassium 3.5 Chloride 101 Carbon Dioxide 20.0 L Anion Gap 13 BUN 21 H Creatinine 1.05 H Estimated GFR 55 L POC Glucose Random Glucose 249 H Calcium 7.0 L* Prot Corrected Calcium 7.5 L Total Bilirubin 1.1 H AST 16 ALT 7 L Alkaline Phosphatase 472 H Total Protein 6.2 L Albumin 1.1 L Imaging: ITS Impressions Femur X-Ray 12/15/17 07:05 CONCLUSION: No fracture is identified. There is extensive soft tissue air in the right gluteal region and extending into the proximal and mid posterior thigh. The soft tissue air suggests an open wound. Pelvis X-Ray 12/15/17 07:05 CONCLUSION: No fracture is identified. However, there is extensive soft tissue air in the left gluteal region and left proximal thigh. Pelvis CT 12/15/17 07:52 CONCLUSION: 1. No fracture is identified. 2. Extensive subcutaneous and soft tissue gas bilaterally, left greater than right. It is most severe in the left gluteal region and extends into the proximal posterior thigh. The soft tissue air dissects through the gluteal musculature. There is adjacent subcutaneous edema. Chest X-Ray 12/17/17 04:00 CONCLUSION: No significant change. Left greater than right parenchymal opacities persist. Foot X-Ray 12/18/17 00:00 CONCLUSION: Remote small avulsion fracture at the fifth toe. No acute bony abnormality. Physical Exam: PHYSICAL EXAMINATION: GENERAL: Sedated. HEENT: Unable to assess fully. The sclerae has edema. Oropharynx intubated. NECK: Supple. No adenopathy or swelling. LUNGS: Bibasilar rhonchi. HEART: irregular S1 and S2. 1-2/6 systolic murmur at the left sternal border. ABDOMEN: Bowel sounds present, soft. BACK: Surgical wound post debridement across the lower back, buttock and thigh. Vac in place. EXTREMITIES: No clubbing, no cyanosis or edema. abrasion with dry necrotic changes at left dorsal toes 2-4. SKIN: No diffuse rash. Scattered ecchymotic lesions. NEUROLOGIC: Unable to assess. PSYCHIATRIC: Unable to assess. Assessment and Plan - Plan IMPRESSION: 1. Necrotizing fasciitis of the back, buttock and thigh. 2. Septic shock. 3. Acute respiratory failure. 4. Chronic kidney disease. 5. Leukocytosis. WBC remains elevated. RECOMMENDATIONS: 1. Culture of wound. Discussed with RN who will be assisting with vac change planned today. 2. Change vancomycin to daptomycin. Will cover VRE. Patient does not appear to be responding well to the current antibiotics. 3. Continue clindamycin. 4. Change cefepime to Zosyn. 5. Monitor the WBC. 6. Monitor clinical status. 7. Monitor culture of the wound when available. Unfortunately there has been no wound cultures from admission.
[2017-12-21] MEDS: fentaNYL 10 mcg/mL Premix Drip 2,500 MCG/250 ML BAG IV.SIG PRN (12:28)
[2017-12-21] MEDS: DAPTOmycin Inj 400 MG in Sodium Chlor 0.9% Inj 100 ML IV.SIG SCH (16:03)
[2017-12-21] MEDS: Piperacil/Tazo 4.5 GM Premix 4.5 GM/100 ML BAG IV.SIG SCH ×2 (17:13→19:30)
[2017-12-21] MEDS: Phenylephrine Inj 40 MG in Dextrose 5% in Water Inj 496 ML IV.CONT PRN ×2 (22:03)
[2017-12-22] MEDS: Oral Hygiene Kit OROPHARYNG SCH ×4 (00:54→15:52)
[2017-12-22] MEDS: Piperacil/Tazo 4.5 GM Premix 4.5 GM/100 ML BAG IV.SIG SCH ×4 (00:54→18:00)
[2017-12-22] MEDS: Insulin NovoLIN Regular Correctional Sugar Inj SQ SCH ×6 (00:59→21:06)
[2017-12-22] MEDS: Chlorhexidine Gluconate 2% 1 Pack (2 Cloths) TOPICAL SCH (04:00)
[2017-12-22 04:06] LABS: ABG Base Excess -3.1 mmol/L (-2-2); ABG PCO2 26 mmHg (38-42); ABG PO2 182 mmHg (61-120)
[2017-12-22] MEDS: Clindamycin 900 mg/NS Premix 900 MG/50 ML PIGGYBACK IV.SIG SCH ×3 (05:04→20:41)
[2017-12-22 05:16] LABS: Baso # (Auto) 0.1 th/mm3 (0.0-0.2); Baso % (Auto) 0.5 % (0.0-2.0); Eos % (Auto) 0.1 % (0.0-4.0); Hematocrit 29.7 % (35.0-46.0); Hemoglobin 10.5 gm/dL (11.6-15.3); Lymph # (Auto) 2.5 th/mm3 (1.0-4.8); Lymph % (Auto) 10.3 % (9.0-44.0); Mean Corpuscular HGB Conc 35.4 % (32.0-36.0); Mean Corpuscular Hemoglobin 30.3 pg (27.0-34.0); Mean Corpuscular Volume 85.5 fL (80.0-100.0); Mean Platelet Volume 10.2 fL (7.0-11.0); Mono # (Auto) 0.3 th/mm3 (0.0-0.9); Mono % (Auto) 1.4 % (0.0-8.0); Neut # (Auto) 21.2 th/mm3 (1.8-7.7); Neut % (Auto) 87.7 % (16.0-70.0); Platelet Count 78 th/mm3 (150-450); Red Blood Count 3.47 mil/mm3 (4.00-5.30); White Blood Count 24.1 th/mm3 (4.0-11.0)
[2017-12-22 05:43] LABS: Albumin 1.1 g/dL (3.4-5.0); Calcium 6.8 mg/dL (8.5-10.1); Carbon Dioxide 20.7 meq/L (21.0-32.0); Total Protein 5.9 g/dL (6.4-8.2)
[2017-12-22 05:50] LABS: Potassium 2.9 meq/L (3.5-5.1)
[2017-12-22] MEDS: Dextrose 5%/Lactated Ringer's 1,000 ML IV.CONT SCH ×3 (06:16→20:42)
[2017-12-22] MEDS: Potassium Chlor 40 mEq Premix 40 MEQ/100 ML PIGGYBACK IV.SIG PRN ×2 (06:37→09:50)
[2017-12-22] MEDS: Senna/Docusate Sodium 8.6/50 MG Tablet PO SCH ×2 (08:15→21:06)
[2017-12-22] MEDS: Famotidine PF Inj 20 MG/2 ML Vial IV.PUSH SCH ×2 (09:51→20:42)
[2017-12-22] MEDS: Chlorhexidine 0.12% Oral Kit 15 ML UDC OROPHARYNG SCH ×2 (09:51→20:42)
[2017-12-22] MEDS: Mupirocin 2% Nasal Oint Topical Syringe EACH NARE SCH ×2 (09:51→20:42)
[2017-12-22] MEDS ORDERED: Pharmacy Ordered Lab Info OTHER ONE (10:45)
--- NOTE | 2017-12-22 11:34 | P.PNGS ---
Subjective Patient reports: still having pain (intubated sedated, teddy/vaso ) Physical Exam Vital signs: Vital Signs 12/21/17 11:45 12/21/17 12:00 12/21/17 12:15 Temperature 100.2 F H 100.2 F H 100.4 F H Pulse Rate 100 H 102 H 108 H Respiratory Rate 22 22 22 Pulse Oximetry 98 98 99 12/21/17 13:24 12/21/17 13:30 12/21/17 13:42 Temperature 99.1 F Pulse Rate 107 H 109 H Respiratory Rate 27 H 22 Pulse Oximetry 97 97 12/21/17 13:45 12/21/17 14:00 12/21/17 14:15 Temperature 98.8 F 98.8 F 98.8 F Pulse Rate 109 H 103 H 99 H Respiratory Rate 0 L 0 L 0 L Pulse Oximetry 94 L 93 L 93 L 12/21/17 14:30 12/21/17 14:45 12/21/17 15:00 Temperature 98.8 F 99.0 F 99.1 F Pulse Rate 98 H 103 H 103 H Respiratory Rate 0 L 0 L 0 L Pulse Oximetry 94 L 96 95 12/21/17 15:15 12/21/17 15:25 12/21/17 15:30 Temperature 99.1 F 99.5 F Pulse Rate 104 H 107 H 106 H Respiratory Rate 0 L 22 0 L Pulse Oximetry 95 95 96 12/21/17 15:45 12/21/17 16:00 12/21/17 19:00 Temperature 99.7 F H 99.9 F H 100.4 F H Pulse Rate 107 H 106 H 108 H Respiratory Rate 0 L 0 L 22 Pulse Oximetry 96 95 97 12/21/17 20:00 12/21/17 21:00 12/21/17 21:40 Temperature 100 F H 100 F H Pulse Rate 106 H 110 H Respiratory Rate 22 22 22 Pulse Oximetry 92 L 95 94 L 12/21/17 22:00 12/21/17 23:00 12/22/17 00:00 Temperature 99.3 F 99.3 F 99.0 F Pulse Rate 108 H 104 H 110 H Respiratory Rate 22 22 22 Pulse Oximetry 99 96 96 12/22/17 00:55 12/22/17 01:00 12/22/17 02:00 Temperature 98.2 F 98.2 F Pulse Rate 100 H 87 Respiratory Rate 22 22 22 Pulse Oximetry 99 99 97 12/22/17 03:00 12/22/17 03:44 12/22/17 04:00 Temperature 98.2 F 97.7 F Pulse Rate 90 92 H Respiratory Rate 22 23 22 Pulse Oximetry 98 98 97 12/22/17 07:00 12/22/17 07:15 12/22/17 07:30 Temperature 97.3 F L 97.3 F L 97.7 F Pulse Rate 84 85 88 Respiratory Rate 13 20 22 Pulse Oximetry 97 97 97 12/22/17 07:45 12/22/17 08:00 12/22/17 08:15 Temperature 97.5 F L 97.2 F L 97.9 F Pulse Rate 89 90 90 Respiratory Rate 18 22 9 L Pulse Oximetry 96 97 97 12/22/17 08:30 12/22/17 08:45 12/22/17 08:50 Temperature 97.9 F 97.5 F L Pulse Rate 91 H 98 H Respiratory Rate 22 22 22 Pulse Oximetry 97 97 96 12/22/17 09:00 12/22/17 09:15 12/22/17 09:30 Temperature 97.7 F 97.9 F 97.2 F L Pulse Rate 90 81 78 Respiratory Rate 22 22 22 Pulse Oximetry 97 96 98 12/22/17 09:45 Temperature 97.2 F L Pulse Rate 79 Respiratory Rate 22 Pulse Oximetry 97 Intake & Output 12/21/17 12/22/17 12/22/17 18:59 06:59 18:59 Intake Total 350 / 350 2064 470 / 470 Output Total 850 / 850 1550 / 1550 Balance -500 / -500 515 / 515 470 / 470 Weight 77.5 kg Intake: IV 350 / 350 2064 470 / 470 D5W/LR Inj 1,000 ML @ 75 mls/hr 1000 / 1000 300 / 300 IV.CONT .[id number] [facility] Rx#: [id number] Neosynephrine Inj 40 MG In D5W 500 / 500 Inj 496 ML @ 40 MCG/MIN 30 mls/ hr IV.CONT TITRATE PRN Rx#: [id number] Diprivan 1000 mg/100 ml Inj 1, 100 / 100 70 / 70 000 mg In 100 ml @ 5 MCG/KG/MIN 1.837 mls/hr IV.CONT TITRATE PRN Rx#:[id number] Pitressin Inj 40 UNIT In NS Inj 65 / 65 98 ML @ 0.04 UNITS/MIN 6 mls/ hr IV.CONT CONT [facility] Rx#: [id number] Cleocin 900 mg/NS Premix 900 mg 100 / 100 In 50 ml @ 100 mls/hr IV.SIG Q8H [facility] Rx#:[id number] Zosyn 4.5 GM Premix 4.5 gm In 400 / 400 100 ml @ 200 mls/hr IV.SIG Q6H [facility] Rx#:[id number] KCl 40 mEq Premix Inj 40 meq In 100 / 100 100 ml @ 25 mls/hr IV.SIG Q2H PRN Rx#:[id number] fentaNYL 10 mcg/mL Premix Drip 250 / 250 2,500 mcg In 250 ml @ 50 MCG/HR 5 mls/hr IV.SIG TITRATE PRN Rx #:[id number] Output: Stool 200 / 200 Emesis 100 / 100 Urine Amount (Catheter) 750 / 750 375 / 375 1 750 / 750 375 / 375 Gastric Drainage 350 / 350 Nasogastric Tube 350 / 350 Wound Drainage 400 / 400 Sacrum 400 / 400 Wound Vac Amount 100 / 100 125 / 125 Posterior Sacrum 100 / 100 125 / 125 Other: Mode Setting Posterior Sacrum Continuous Continuous Continuous Date of Last Bowel Movement 12/20/17 12/22/17 12/22/17 # Bowel Movements 1 2 # Incontinent Bowel Movements 1 # Oral Regurgitations 3 - Routine Abdominal Exam Present: soft (vac in place to back, no leak) - Routine Extremities Exam Present: edema (LUE) - Urinary Catheter Management 1 Cath placed during this visit: yes Reason for continuing: Severe pressure ulcer/wound Insertion date: 12/15/17 Results - Labs 12/22/17 04:43 12/22/17 04:43 Laboratory Results - last 24 hr 12/21/17 12/21/17 12/21/17 10:55 16:59 21:45 WBC RBC Hgb Hct MCV MCH MCHC RDW Plt Count MPV Prelim Diff (Auto) Neut % (Auto) Lymph % (Auto) [place] % (Auto) Eos % (Auto) Baso % (Auto) Neut # (Auto) Lymph # (Auto) [place] # (Auto) Eos # (Auto) Baso # (Auto) Differential Comment Puncture Site Patient Temperature O2 Saturation ABG pH ABG pCO2 ABG pO2 ABG HCO3 ABG O2 Content ABG Base Excess ABG Methemoglobin Hemoglobin Carboxyhemoglobin O2 Delivery Device Vent Setting Inspired O2 Critical Value Sodium Potassium Chloride Carbon Dioxide Anion Gap BUN Creatinine Estimated GFR POC Glucose 252 H 323 H Random Glucose Calcium Prot Corrected Calcium Total Bilirubin AST ALT Alkaline Phosphatase Total Protein Albumin MTS Gel Crossmatch See Detail 12/21/17 12/22/17 12/22/17 21:48 00:53 03:55 WBC RBC Hgb Hct MCV MCH MCHC RDW Plt Count MPV Prelim Diff (Auto) Neut % (Auto) Lymph % (Auto) [place] % (Auto) Eos % (Auto) Baso % (Auto) Neut # (Auto) Lymph # (Auto) [place] # (Auto) Eos # (Auto) Baso # (Auto) Differential Comment Puncture Site Art line Patient Temperature 98.6 O2 Saturation 97 ABG pH 7.50 H ABG pCO2 26 L ABG pO2 182 H ABG HCO3 20 L ABG O2 Content 14.5 ABG Base Excess -3.1 L ABG Methemoglobin 1.3 Hemoglobin 10.3 L Carboxyhemoglobin 1.3 O2 Delivery Device Ventilator Vent Setting 22/450/[id number]/it1.38 Inspired O2 40 Critical Value No Sodium Potassium Chloride Carbon Dioxide Anion Gap BUN Creatinine Estimated GFR POC Glucose 275 H 223 H Random Glucose Calcium Prot Corrected Calcium Total Bilirubin AST ALT Alkaline Phosphatase Total Protein Albumin MTS Gel Crossmatch 12/22/17 12/22/17 12/22/17 04:43 04:43 07:52 WBC 24.1 H RBC 3.47 L Hgb 10.5 L Hct 29.7 L MCV 85.5 MCH 30.3 MCHC 35.4 RDW 16.0 Plt Count 78 L MPV 10.2 Prelim Diff (Auto) Slide review pending Neut % (Auto) 87.7 H Lymph % (Auto) 10.3 [place] % (Auto) 1.4 Eos % (Auto) 0.1 Baso % (Auto) 0.5 Neut # (Auto) 21.2 H Lymph # (Auto) 2.5 [place] # (Auto) 0.3 Eos # (Auto) 0.0 Baso # (Auto) 0.1 Differential Comment . Puncture Site Patient Temperature O2 Saturation ABG pH ABG pCO2 ABG pO2 ABG HCO3 ABG O2 Content ABG Base Excess ABG Methemoglobin Hemoglobin Carboxyhemoglobin O2 Delivery Device Vent Setting Inspired O2 Critical Value Sodium 133 L Potassium 2.9 L* Chloride 100 Carbon Dioxide 20.7 L Anion Gap 12 BUN 30 H Creatinine 0.95 Estimated GFR 62 L POC Glucose 149 H Random Glucose 164 H Calcium 6.8 L* Prot Corrected Calcium 7.4 L* Total Bilirubin 1.0 AST 20 ALT 8 L Alkaline Phosphatase 498 H Total Protein 5.9 L Albumin 1.1 L MTS Gel Crossmatch - Imaging Imaging: ITS Impressions Femur X-Ray 12/15/17 07:05 CONCLUSION: No fracture is identified. There is extensive soft tissue air in the right gluteal region and extending into the proximal and mid posterior thigh. The soft tissue air suggests an open wound. Pelvis X-Ray 12/15/17 07:05 CONCLUSION: No fracture is identified. However, there is extensive soft tissue air in the left gluteal region and left proximal thigh. Pelvis CT 12/15/17 07:52 CONCLUSION: 1. No fracture is identified. 2. Extensive subcutaneous and soft tissue gas bilaterally, left greater than right. It is most severe in the left gluteal region and extends into the proximal posterior thigh. The soft tissue air dissects through the gluteal musculature. There is adjacent subcutaneous edema. Chest X-Ray 12/17/17 04:00 CONCLUSION: No significant change. Left greater than right parenchymal opacities persist. Foot X-Ray 12/18/17 00:00 CONCLUSION: Remote small avulsion fracture at the fifth toe. No acute bony abnormality. Assessment and Plan - Assessment (1) Necrotizing fasciitis of pelvic region and thigh Code(s): M72.6 - Necrotizing fasciitis Status: Acute Plan: 52yo female with multiple medical comorbidities, s/p debridement of nec fasc -Remains critically ill -Continues to require pressor support -VAC change likely sunday -ok for tube feeding - need dignashield -Hmg stable - dvt ppx - check LUE US
--- NOTE | 2017-12-22 11:46 | P.PNCC ---
Subjective Subjective Remarks/Hospital Course: This 52-year-old woman with long-standing uncontrolled diabetes mellitus and severe peripheral arterial disease related to a long-term heavy smoking history was found down at her home and initial blood glucose was 610. Her lower back and buttocks was exquisitely tender and a mid line stage IV sacral decubitus was oozing purulent material and inflamed and the surrounding soft tissue. White count was not elevated but 90% neutrophils. Temperature 97 degrees. Moderately encephalopathic though conversant. X-rays revealed no fractures in the pelvis but CAT scan demonstrated extensive subcutaneous air emanating in both directions left and right from the mid sacral region. This is clearly necrotizing fasciitis or some other gas-forming infection and the woman is critically ill. She received vancomycin, Zosyn, and clindamycin antibiotic therapy as quickly as possible and was transferred to the ICU for ongoing resuscitation. Because of worsening hemodynamic stability she required intubation and mechanical ventilation followed by central line placement on arrival to the ICU. Insulin drip infusion was started in the emergency department and glucose had declined into the low 400s. She was not in ketoacidosis but lactic acid was elevated at 3.1. General surgery and orthopedic surgery were consulted for recommendations and it was felt that this woman was too unstable to tolerate an operative procedure immediately. We continue her ongoing resuscitation and trial in the ICU at this stage. 12/16: Following aggressive resuscitation yesterday for the treatment of severe hyperglycemia, septic shock, respiratory failure, metabolic acidosis, acute kidney injury, the patient went to the operating room with an extensive wide debridement bilateral gluteal and left thigh soft tissue and muscle. Primary antibiotic coverage at this point is vancomycin, cefepime, clindamycin. The patient started to make urine late yesterday afternoon and has continued to acceptable output since. Lactic acidosis is 2.0 this morning but metabolic acidosis persists despite bicarb drip. She remains on vasopressor support and hemodynamically unstable. 12/17: s/p debridement of large nec fasc wound. remains in shock today. also very hypoglycemic requiring multiple D50 amps overnight. 12/18: back in worsening shock. vasopressor support higher. required 2L crystalloid overnight and additional 1L and 500cc albumin today. ivc completely flat on bedside echo. LVEF hyperdynamic. no pericardial effusion. spoken with gen surg. plan to go back early to eval for worsening necrosis. fio2 also up to 100% and peep 10- hypoxic, likely early ARDS. 12/19: clinically doing better. still in shock on vasopressors, but requirements are lower and lactate cleared. Cr slowly uptrending. SVV still 19% today and appears to be volume responsive. gen surgery ordered 2 units prbc for falling hgb in the setting of blood loss with surgical intervention yesterday. fio2 improving. glycemic control also improving. 12/20: Markedly impaired oxygenation persists. Still requiring elevated end expiratory pressure. Nutritional support continues but she remains catabolic. It will be difficult to keep up with her nutritional needs. 12/21: Continued severe sepsis requiring vasopressor support and mechanical ventilation. Oxygenation remains impaired and smoldering metabolic acidosis persists. Despite hemodynamic instability the patient's only hope for survival is with infection source control through further debridement. Clearly a greatly increased risk however for any procedure. 12/22: Persistent septic shock course requiring vasopressor support and regular debridement. Good antibiotic coverage but she continues to require adjustment of ventilator, hemodynamic support drugs, antibiotics, intravenous fluids. Her nutritional status was quite depleted on arrival and continues to deteriorate despite adjuvant nutrition Objective Vital Signs / I&O: Vital Signs 12/21/17 11:45 12/21/17 12:00 12/21/17 12:15 Temperature 100.2 F H 100.2 F H 100.4 F H Pulse Rate 100 H 102 H 108 H Respiratory Rate 22 22 22 Pulse Oximetry 98 98 99 12/21/17 13:24 12/21/17 13:30 12/21/17 13:42 Temperature 99.1 F Pulse Rate 107 H 109 H Respiratory Rate 27 H 22 Pulse Oximetry 97 97 12/21/17 13:45 12/21/17 14:00 12/21/17 14:15 Temperature 98.8 F 98.8 F 98.8 F Pulse Rate 109 H 103 H 99 H Respiratory Rate 0 L 0 L 0 L Pulse Oximetry 94 L 93 L 93 L 12/21/17 14:30 12/21/17 14:45 12/21/17 15:00 Temperature 98.8 F 99.0 F 99.1 F Pulse Rate 98 H 103 H 103 H Respiratory Rate 0 L 0 L 0 L Pulse Oximetry 94 L 96 95 12/21/17 15:15 12/21/17 15:25 12/21/17 15:30 Temperature 99.1 F 99.5 F Pulse Rate 104 H 107 H 106 H Respiratory Rate 0 L 22 0 L Pulse Oximetry 95 95 96 12/21/17 15:45 12/21/17 16:00 12/21/17 19:00 Temperature 99.7 F H 99.9 F H 100.4 F H Pulse Rate 107 H 106 H 108 H Respiratory Rate 0 L 0 L 22 Pulse Oximetry 96 95 97 12/21/17 20:00 12/21/17 21:00 12/21/17 21:40 Temperature 100 F H 100 F H Pulse Rate 106 H 110 H Respiratory Rate 22 22 22 Pulse Oximetry 92 L 95 94 L 12/21/17 22:00 12/21/17 23:00 12/22/17 00:00 Temperature 99.3 F 99.3 F 99.0 F Pulse Rate 108 H 104 H 110 H Respiratory Rate 22 22 22 Pulse Oximetry 99 96 96 12/22/17 00:55 12/22/17 01:00 12/22/17 02:00 Temperature 98.2 F 98.2 F Pulse Rate 100 H 87 Respiratory Rate 22 22 22 Pulse Oximetry 99 99 97 12/22/17 03:00 12/22/17 03:44 12/22/17 04:00 Temperature 98.2 F 97.7 F Pulse Rate 90 92 H Respiratory Rate 22 23 22 Pulse Oximetry 98 98 97 12/22/17 07:00 12/22/17 07:15 12/22/17 07:30 Temperature 97.3 F L 97.3 F L 97.7 F Pulse Rate 84 85 88 Respiratory Rate 13 20 22 Pulse Oximetry 97 97 97 12/22/17 07:45 12/22/17 08:00 12/22/17 08:15 Temperature 97.5 F L 97.2 F L 97.9 F Pulse Rate 89 90 90 Respiratory Rate 18 22 9 L Pulse Oximetry 96 97 97 12/22/17 08:30 12/22/17 08:45 12/22/17 08:50 Temperature 97.9 F 97.5 F L Pulse Rate 91 H 98 H Respiratory Rate 22 22 22 Pulse Oximetry 97 97 96 12/22/17 09:00 12/22/17 09:15 12/22/17 09:30 Temperature 97.7 F 97.9 F 97.2 F L Pulse Rate 90 81 78 Respiratory Rate 22 22 22 Pulse Oximetry 97 96 98 12/22/17 09:45 Temperature 97.2 F L Pulse Rate 79 Respiratory Rate 22 Pulse Oximetry 97 Intake & Output 12/21/17 12/22/17 12/22/17 18:59 06:59 18:59 Intake Total 350 / 350 2064 470 / 470 Output Total 850 / 850 1550 / 1550 Balance -500 / -500 515 / 515 470 / 470 Weight 77.5 kg Intake: IV 350 / 350 2064 470 / 470 D5W/LR Inj 1,000 ML @ 75 mls/hr 1000 / 1000 300 / 300 IV.CONT .[id number] [facility] Rx#: [id number] Neosynephrine Inj 40 MG In D5W 500 / 500 Inj 496 ML @ 40 MCG/MIN 30 mls/ hr IV.CONT TITRATE PRN Rx#: [id number] Diprivan 1000 mg/100 ml Inj 1, 100 / 100 70 / 70 000 mg In 100 ml @ 5 MCG/KG/MIN 1.837 mls/hr IV.CONT TITRATE PRN Rx#:[id number] Pitressin Inj 40 UNIT In NS Inj 65 / 65 98 ML @ 0.04 UNITS/MIN 6 mls/ hr IV.CONT CONT [facility] Rx#: [id number] Cleocin 900 mg/NS Premix 900 mg 100 / 100 In 50 ml @ 100 mls/hr IV.SIG Q8H [facility] Rx#:[id number] Zosyn 4.5 GM Premix 4.5 gm In 400 / 400 100 ml @ 200 mls/hr IV.SIG Q6H [facility] Rx#:[id number] KCl 40 mEq Premix Inj 40 meq In 100 / 100 100 ml @ 25 mls/hr IV.SIG Q2H [facility] Rx#:[id number] fentaNYL 10 mcg/mL Premix Drip 250 / 250 2,500 mcg In 250 ml @ 50 MCG/HR 5 mls/hr IV.SIG TITRATE PRN Rx #:[id number] Output: Stool 200 / 200 Emesis 100 / 100 Urine Amount (Catheter) 750 / 750 375 / 375 1 750 / 750 375 / 375 Gastric Drainage 350 / 350 Nasogastric Tube 350 / 350 Wound Drainage 400 / 400 Sacrum 400 / 400 Wound Vac Amount 100 / 100 125 / 125 Posterior Sacrum 100 / 100 125 / 125 Other: Mode Setting Posterior Sacrum Continuous Continuous Continuous Date of Last Bowel Movement 12/20/17 12/22/17 12/22/17 # Bowel Movements 1 2 # Incontinent Bowel Movements 1 # Oral Regurgitations 3 Result Diagrams: 12/22/17 04:43 12/22/17 04:43 Objective Remarks: General: Ill-appearing middle-aged woman, intubated and lightly sedated Head: Atraumatic, normal, edentulous Neck: Supple, orotracheal intubation Lungs: equal chest rise. Scattered rhonchi but acceptable air movement. peep 8. Heart: tachycardic rate and regular rhythm. no JVD. Abdomen: Soft, no guarding, no peritoneal irritation. Quiet Back: Wound VAC in place over lower lumbar region there is a moderate erythema to the skin over the pelvis and buttocks. Extremities: Warm, adequately perfused, status post below-knee amputation right side, necrotic ulceration over several toes left foot Neurological: Intubated and sedated, moves 4 limbs to stimulation. Pupils responsive. Cough, gag intact. Assessment and Plan - Problem List (1) Septic shock with acute organ dysfunction due to anaerobic bacteria Code(s): A41.4 - Sepsis due to anaerobes; R65.21 - Severe sepsis with septic shock Status: Acute (2) Acute respiratory failure Code(s): J96.00 - Acute respiratory failure, unspecified whether with hypoxia or hypercapnia Status: Acute (3) Necrotizing fasciitis Code(s): M72.6 - Necrotizing fasciitis Status: Acute (4) Type 2 diabetes mellitus with hyperosmolar nonketotic hyperglycemia Code(s): E11.01 - Type 2 diabetes mellitus with hyperosmolarity with coma Status: Acute (5) MARIO (acute kidney injury) Code(s): N17.9 - Acute kidney failure, unspecified Status: Acute (6) Lactic acidosis Code(s): E87.2 - Acidosis Status: Acute - Assessment and Plan Plan: Assessment: 52yF with large necrotizing soft tissue infection of the lower back and sacrum complicated by septic shock and multiorgan dysfunction. Continued vasopressors, ivf, and antibiotics. plan for re-evaluation surgically on Sunday. remains critically ill in ongoing shock. Plan: Neurological Acute metabolic encephalopathy -Sedation with propofol -Analgesia with fentanyl -Encephalopathy largely due to sepsis and hyperglycemia - RASS goal -2. Cardiovascular Septic Shock- persistent Myocardial dysfunction secondary to septic shock -levophed, vasopresin for goal map > 65 mmHg. - d/c milrinone today. Flowtrack suggesting CI > 3.5. if she needs additional inotropic therapy may benefit from epinephrine or dobutamine. -2 units of prbc for ongoing blood loss and anemia will help with intravascular volume expansion as well. -Follow acid-base balance closely Respiratory Acute hypoxic and hypercarbic respiratory failure- persistent -Intubation and mechanical ventilation -Bronchodilators - HOB elevated - vent bundle - wean fio2 for goal spo2 > 90% - no weaning of mechanical ventilation until shock improves -Repeat chest x-ray -Reduce PEEP to 8 Endocrinology Diabetes Severe hypoglycemia - hold levemir - transition from insulin drip to q4h med scale SSI. -Follow potassium and magnesium closely Hematology/Infectious Disease Septic Shock Necrotizing soft tissue infection -Obvious infection. -Follow white count and platelet count closely - abx per ID. continue clindamycin until third debridement rules out further extension of necrosis. (second debridement revealed ongoing necrosis) - daily cbc GI Acute protein calorie malnutrition- severe - NPO while in shock - NG tube to LIWS - prealbumin 5 on 12/18. severely malnourished. - daily bmp, mg, phos Acute kidney injury -Tristan required for hourly urine output -High risk for further deterioration in renal function -Needs Tristan at this time to protect perineal region Prophylaxis -Pepcid for GI ulcer prophylaxis -SCDs for DVT prophylaxis -Hold chemical DVT prophylaxis until ongoing surgical decisions regarding further debridement are made Lines: Left subclavian central venous line placed 12/15 Overall impression: This woman is critically ill and in septic shock with necrotizing fasciitis emanating from a deep chronic sacral decubitus ulcer. She remains hemodynamically unstable and requiring vasopressor support. Peripheral perfusion and urine output is acceptable. Critical care 35 minutes
[2017-12-22 12:02] LABS: Lymphocytes 12 % (9-44); Metamyelocytes 1 % (0-1); Monocytes 3 % (0-8)
[2017-12-22 12:03] LABS: Platelet Morphology Normal (Normal); Toxic Granulation 2+
[2017-12-22] MEDS: DAPTOmycin Inj 400 MG in Sodium Chlor 0.9% Inj 100 ML IV.SIG SCH (12:20)
[2017-12-22] MEDS: Enoxaparin Inj 30 MG/0.3 ML Syringe SQ SCH (13:26)
--- NOTE | 2017-12-22 13:54 | MP ---
cc: Ventura Bazzi MD DATE OF OPERATION: 12/21/2017 PREOPERATIVE DIAGNOSIS: Necrotizing fasciitis to lower back, buttock, and posterior thigh area. POSTOPERATIVE DIAGNOSIS: Necrotizing fasciitis to lower back, buttock, and posterior thigh area. PROCEDURE PERFORMED: Incision and drainage with excisional debridement of soft tissue area of back, buttock, and lower thigh with VAC change and replacement. SURGEON: Ventura Bazzi MD BIOINFORMATICIAN: Shaina. ANESTHESIA: GETA. IV FLUIDS: See anesthesia sheet. ESTIMATED BLOOD LOSS: 15 mL DRAINS: Hemovac. WOUND CLASSIFICATION: Dirty. COMPLICATIONS: None. SPECIMENS: None. FINDINGS: Minimal purulent retention of necrotic fascia, left perianal area tracking, improved overall appearance with these exceptions. INDICATIONS: The patient is a 52-year-old female, necrotizing fasciitis, presented after septic shock. The patient with multiple VAC changes and debridements. Plan for routine VAC change with debridement. DETAILS OF PROCEDURE: The patient was taken to the operative suite, placed in prone position, prepped and draped in the usual sterile fashion after induction of general endotracheal anesthesia. The patient already maintained on ventilator. VAC was removed. The wound was thoroughly irrigated. Small areas were debrided to the soft tissue and fascia to the left buttock. Further exploration noted some deep purulent debris with necrotic fascia deep to the perianal area. This was irrigated thoroughly and debrided. Depth 8 cm x 2.5 cm wide. VAC sponge placed in this. VAC sponge also tracked deep to the previously approximated right lateral side. Wound VAC sponge cut to size and stapled to the skin edges. Plastic placed and track pad placed. The patient tolerated procedure well. No intraoperative complications. All lap and instrument counts were correct at the end of the procedure. The patient remained intubated, in critical condition, taken to ICU. MD PAM Cordova/paul , 12:56 PM , 01:05 PM
--- NOTE | 2017-12-22 14:43 | P.PNID ---
Subjective Remarks: ID xcover for Dr Chavis 52 yo with poorly controlled DM and nec fasc of buttocks, lumbar krystle sp debridements path with necrotic tissues loaded with coccoid bacterial No wound cultures avslbale Neg blood clx Discussed with RN. Sedated. On the ventilator. Patient currently on vasopressin and phenylephrine. Blood pressure decreases with attempts to wean the pressors. Blood culture has no growth. Low-grade fever. WBC remain elevated. Due to go for vacuum change tomorrow or sunday. Antibiotics: Clindamycin. Vancomycin Cefepime. Allergies/Adverse Reactions: Allergies No Known Allergies Allergy (Verified 12/15/17 07:54) Objective Vital Signs 12/21/17 14:45 12/21/17 15:00 12/21/17 15:15 Temperature 99.0 F 99.1 F 99.1 F Pulse Rate 103 H 103 H 104 H Respiratory Rate 0 L 0 L 0 L Pulse Oximetry 96 95 95 12/21/17 15:25 12/21/17 15:30 12/21/17 15:45 Temperature 99.5 F 99.7 F H Pulse Rate 107 H 106 H 107 H Respiratory Rate 22 0 L 0 L Pulse Oximetry 95 96 96 12/21/17 16:00 12/21/17 19:00 12/21/17 20:00 Temperature 99.9 F H 100.4 F H 100 F H Pulse Rate 106 H 108 H 106 H Respiratory Rate 0 L 22 22 Pulse Oximetry 95 97 92 L 12/21/17 21:00 12/21/17 21:40 12/21/17 22:00 Temperature 100 F H 99.3 F Pulse Rate 110 H 108 H Respiratory Rate 22 22 22 Pulse Oximetry 95 94 L 99 12/21/17 23:00 12/22/17 00:00 12/22/17 00:55 Temperature 99.3 F 99.0 F Pulse Rate 104 H 110 H Respiratory Rate 22 22 22 Pulse Oximetry 96 96 99 12/22/17 01:00 12/22/17 02:00 12/22/17 03:00 Temperature 98.2 F 98.2 F 98.2 F Pulse Rate 100 H 87 90 Respiratory Rate 22 22 22 Pulse Oximetry 99 97 98 12/22/17 03:44 12/22/17 04:00 12/22/17 07:00 Temperature 97.7 F 97.3 F L Pulse Rate 92 H 84 Respiratory Rate 23 22 13 Pulse Oximetry 98 97 97 12/22/17 07:15 12/22/17 07:30 12/22/17 07:45 Temperature 97.3 F L 97.7 F 97.5 F L Pulse Rate 85 88 89 Respiratory Rate 20 22 18 Pulse Oximetry 97 97 96 12/22/17 08:00 12/22/17 08:15 12/22/17 08:30 Temperature 97.2 F L 97.9 F 97.9 F Pulse Rate 90 90 91 H Respiratory Rate 22 9 L 22 Pulse Oximetry 97 97 97 12/22/17 08:45 12/22/17 08:50 12/22/17 09:00 Temperature 97.5 F L 97.7 F Pulse Rate 98 H 90 Respiratory Rate 22 22 22 Pulse Oximetry 97 96 97 12/22/17 09:15 12/22/17 09:30 12/22/17 09:45 Temperature 97.9 F 97.2 F L 97.2 F L Pulse Rate 81 78 79 Respiratory Rate 22 22 22 Pulse Oximetry 96 98 97 12/22/17 10:00 12/22/17 10:15 12/22/17 10:30 Temperature 97.0 F L 97.2 F L 97.7 F Pulse Rate 78 83 89 Respiratory Rate 22 22 22 Pulse Oximetry 97 97 97 12/22/17 10:45 12/22/17 11:00 12/22/17 11:15 Temperature 97.5 F L 97.5 F L 97.5 F L Pulse Rate 82 81 83 Respiratory Rate 22 22 22 Pulse Oximetry 93 L 96 95 12/22/17 11:30 12/22/17 11:45 12/22/17 12:00 Temperature 97.9 F 97.9 F 97.3 F L Pulse Rate 89 98 H 95 H Respiratory Rate 25 H 22 22 Pulse Oximetry 93 L 95 93 L 12/22/17 12:15 12/22/17 12:30 12/22/17 12:45 Temperature 97.3 F L 97.7 F 97.5 F L Pulse Rate 94 H 102 H 93 H Respiratory Rate 22 23 22 Pulse Oximetry 93 L 92 L 93 L 12/22/17 13:00 12/22/17 13:04 12/22/17 13:15 Temperature 97.5 F L 97.5 F L Pulse Rate 91 H 93 H Respiratory Rate 21 22 22 Pulse Oximetry 95 94 L 94 L 12/22/17 13:30 Temperature 97.5 F L Pulse Rate 96 H Respiratory Rate 22 Pulse Oximetry 96 Intake & Output 12/21/17 12/22/17 12/22/17 18:59 06:59 18:59 Intake Total 450 / 450 2064 / 2065 820 / 820 Output Total 850 / 850 1550 / 1550 Balance -400 / -400 515 / 515 820 / 820 Weight 77.5 kg Intake: IV 450 / 450 2064 / 5 820 / 820 D5W/LR Inj 1,000 ML @ 75 mls/hr 1000 / 1000 300 / 300 IV.CONT .[id number] RICARDO Rx#: [id number] Neosynephrine Inj 40 MG In D5W 500 / 500 Inj 496 ML @ 40 MCG/MIN 30 mls/ hr IV.CONT TITRATE PRN Rx#: [id number] Diprivan 1000 mg/100 ml Inj 1, 100 / 100 70 / 70 000 mg In 100 ml @ 5 MCG/KG/MIN 1.837 mls/hr IV.CONT TITRATE PRN Rx#:[id number] Pitressin Inj 40 UNIT In NS Inj 65 / 65 98 ML @ 0.04 UNITS/MIN 6 mls/ hr IV.CONT CONT RICARDO Rx#: [id number] Cleocin 900 mg/NS Premix 900 mg 100 / 100 50 / 50 In 50 ml @ 100 mls/hr IV.SIG Q8H RICARDO Rx#:[id number] Cubicin Inj 400 MG In NS Inj 100 / 100 100 / 100 100 ML @ 200 mls/hr IV.SIG Q24H RICARDO Rx#:[id number] Zosyn 4.5 GM Premix 4.5 gm In 400 / 400 100 / 100 100 ml @ 200 mls/hr IV.SIG Q6H RICARDO Rx#:[id number] KCl 40 mEq Premix Inj 40 meq In 200 / 200 100 ml @ 25 mls/hr IV.SIG Q2H PRN Rx#:[id number] fentaNYL 10 mcg/mL Premix Drip 250 / 250 2,500 mcg In 250 ml @ 50 MCG/HR 5 mls/hr IV.SIG TITRATE PRN Rx #:[id number] Output: Stool 200 / 200 Emesis 100 / 100 Urine Amount (Catheter) 750 / 750 375 / 375 1 750 / 750 375 / 375 Gastric Drainage 350 / 350 Nasogastric Tube 350 / 350 Wound Drainage 400 / 400 Sacrum 400 / 400 Wound Vac Amount 100 / 100 125 / 125 Posterior Sacrum 100 / 100 125 / 125 Other: Mode Setting Posterior Sacrum Continuous Continuous Continuous Date of Last Bowel Movement 12/20/17 12/22/17 12/22/17 # Bowel Movements 1 2 # Incontinent Bowel Movements 1 # Oral Regurgitations 3 12/20/17 18:00 Catheterized Urine Urine Culture - Final Talia tropicalis 12/15/17 06:30 Blood - Peripheral Aerobic Blood Culture - Final No growth in 5 days 12/15/17 06:30 Blood - Peripheral Anaerobic Blood Culture - Final No growth in 5 days 12/15/17 06:45 Blood - Peripheral Aerobic Blood Culture - Final No growth in 5 days 12/15/17 06:45 Blood - Peripheral Anaerobic Blood Culture - Final No growth in 5 days Lab - Hematology Results 12/21/17 12/22/17 05:10 04:43 WBC 24.5 H 24.1 H RBC 3.63 L 3.47 L Hgb 11.1 L 10.5 L Hct 31.5 L 29.7 L MCV 86.7 85.5 MCH 30.5 30.3 MCHC 35.1 35.4 RDW 16.1 16.0 Plt Count 79 L 78 L MPV 8.9 10.2 Prelim Diff (Auto) Slide review pending Slide review pending Neut % (Auto) 84.7 H 87.7 H Lymph % (Auto) 13.0 10.3 [place] % (Auto) 1.2 1.4 Eos % (Auto) 0.7 0.1 Baso % (Auto) 0.4 0.5 Neut # (Auto) 20.8 H 21.2 H Lymph # (Auto) 3.2 2.5 [place] # (Auto) 0.3 0.3 Eos # (Auto) 0.2 0.0 Baso # (Auto) 0.1 0.1 WBC Differential Manual diff final Manual diff final Seg Neuts % (Manual) 79 H 68 Band Neuts % (Manual) 6 16 H Lymphocytes % (Manual) 7 L 12 Monocytes % (Manual) 5 3 Eosinophils % (Manual) 1 Metamyelocytes % (Man) 1 Myelocytes % (Man) 1 H Promyelocytes % (Man) 1 H Abs Neuts (Manual) 21.3 H 20.5 H Differential Comment . . Toxic Granulation 2+ H Platelet Estimate Low L Low L Platelet Morphology Enlarged H Normal RBC Morphology Normal Lab - Chemistry Results 12/20/17 12/20/17 12/20/17 17:23 19:35 23:39 Sodium Potassium Chloride Carbon Dioxide Anion Gap BUN Creatinine Estimated GFR POC Glucose 134 H 204 H 264 H Random Glucose Calcium Prot Corrected Calcium Total Bilirubin AST ALT Alkaline Phosphatase Total Protein Albumin 12/21/17 12/21/17 12/21/17 03:42 05:10 16:59 Sodium 134 L Potassium 3.5 Chloride 101 Carbon Dioxide 20.0 L Anion Gap 13 BUN 21 H Creatinine 1.05 H Estimated GFR 55 L POC Glucose 271 H 252 H Random Glucose 249 H Calcium 7.0 L* Prot Corrected Calcium 7.5 L Total Bilirubin 1.1 H AST 16 ALT 7 L Alkaline Phosphatase 472 H Total Protein 6.2 L Albumin 1.1 L 12/21/17 12/21/17 12/22/17 21:45 21:48 00:53 Sodium Potassium Chloride Carbon Dioxide Anion Gap BUN Creatinine Estimated GFR POC Glucose 323 H 275 H 223 H Random Glucose Calcium Prot Corrected Calcium Total Bilirubin AST ALT Alkaline Phosphatase Total Protein Albumin 12/22/17 12/22/17 12/22/17 04:43 07:52 13:16 Sodium 133 L Potassium 2.9 L* Chloride 100 Carbon Dioxide 20.7 L Anion Gap 12 BUN 30 H Creatinine 0.95 Estimated GFR 62 L POC Glucose 149 H 200 H Random Glucose 164 H Calcium 6.8 L* Prot Corrected Calcium 7.4 L* Total Bilirubin 1.0 AST 20 ALT 8 L Alkaline Phosphatase 498 H Total Protein 5.9 L Albumin 1.1 L Imaging: ITS Impressions Femur X-Ray 12/15/17 07:05 CONCLUSION: No fracture is identified. There is extensive soft tissue air in the right gluteal region and extending into the proximal and mid posterior thigh. The soft tissue air suggests an open wound. Pelvis X-Ray 12/15/17 07:05 CONCLUSION: No fracture is identified. However, there is extensive soft tissue air in the left gluteal region and left proximal thigh. Pelvis CT 12/15/17 07:52 CONCLUSION: 1. No fracture is identified. 2. Extensive subcutaneous and soft tissue gas bilaterally, left greater than right. It is most severe in the left gluteal region and extends into the proximal posterior thigh. The soft tissue air dissects through the gluteal musculature. There is adjacent subcutaneous edema. Chest X-Ray 12/17/17 04:00 CONCLUSION: No significant change. Left greater than right parenchymal opacities persist. Foot X-Ray 12/18/17 00:00 CONCLUSION: Remote small avulsion fracture at the fifth toe. No acute bony abnormality. Physical Exam: PHYSICAL EXAMINATION: GENERAL: Sedated. HEENT: Unable to assess fully. The sclerae has edema. Oropharynx intubated. edentulous NECK: Supple. No adenopathy or swelling. LUNGS: Bibasilar rhonchi. HEART: irregular S1 and S2. 1-2/6 systolic murmur at the left sternal border. ABDOMEN: Bowel sounds present, soft. BACK:VAC in place wound post debridement across the lower back, buttock and thigh. + edema, erythema around EXTREMITIES: No clubbing, + L foot cyanosis + soft pitting 1+edema. abrasion with dry necrotic changes at left dorsal toes 2-4. SKIN: No diffuse rash. Scattered ecchymotic lesions. NEUROLOGIC: Unable to assess. PSYCHIATRIC: Unable to assess. Assessment and Plan - Plan IMPRESSION: 1. Necrotizing fasciitis of the back, buttock and thigh. - GPC cocci on payh 2. Septic shock. 3. Acute respiratory failure. 4. Chronic kidney disease. 5. Leukocytosis. WBC remains elevated. RECOMMENDATIONS: 1. Culture of wound. Discussed with RN who will be assisting with vac change planned today. 2. Cont daptomycin. Will cover VRE. Patient does not appear to be responding well to the current antibiotics. 3. Continue clindamycin. 4. Cont Zosyn. 5. Monitor the WBC. 6. Monitor clinical status. 7. Monitor culture of the wound. Unfortunately he has been no wound cultures obtained at admission. yadira RODGERS @ b/s
--- NOTE | 2017-12-22 15:40 | US ---
EXAM DATE: 12/22/2017 3:31 PM EDT AGE/SEX: 52 years / Female INDICATIONS: Left upper extremity edema. CLINICAL DATA: This is the patient's initial encounter. Patient reports that signs and symptoms have been present for 1 day and indicates a pain score of Nonresponsive. MEDICAL/SURGICAL HISTORY: . Benign hypertension. Decubital ulcer. Diabetes. GERD. Hepatitis C virus. Clostridium difficile colitis. Diabetic gastroparesis. MRSA. Osteomyelitis. Peripheral neuropathy. Peripheral vascular disease. . Below the knee amputation. section x2. COMPARISON: No prior exams available for comparison. FINDINGS: There is evidence of echogenic clot and noncompressibility of the left internal jugular ve in, subclavian vein, axillary vein, brachial vein, basilic vein, and cephalic vein. Ulnar and radial veins showed normal color Doppler flow. CONCLUSION: Extensive deep vein thrombosis of the left upper extremity. Electronically signed by: Luther Cronin MD 12/22/2017 3:39 PM EDT
[2017-12-22] MEDS: Vasopressin Inj 40 UNIT in Sodium Chlor 0.9% Inj 98 ML IV.CONT SCH (16:07)
[2017-12-22] MEDS: fentaNYL 10 mcg/mL Premix Drip 2,500 MCG/250 ML BAG IV.SIG PRN (17:20)
[2017-12-23] MEDS: Piperacil/Tazo 4.5 GM Premix 4.5 GM/100 ML BAG IV.SIG SCH ×4 (01:12→17:59)
[2017-12-23] MEDS: Oral Hygiene Kit OROPHARYNG SCH ×4 (01:12→15:41)
[2017-12-23] MEDS: Insulin NovoLIN Regular Correctional Sugar Inj SQ SCH ×5 (01:12→16:28)
[2017-12-23] MEDS: Dextrose 5%/Lactated Ringer's 1,000 ML IV.CONT SCH ×4 (01:13→22:10)
[2017-12-23] MEDS: Phenylephrine Inj 40 MG in Dextrose 5% in Water Inj 496 ML IV.CONT PRN ×4 (01:15→13:36)
[2017-12-23] MEDS: Chlorhexidine Gluconate 2% 1 Pack (2 Cloths) TOPICAL SCH (04:03)
[2017-12-23] MEDS: Clindamycin 900 mg/NS Premix 900 MG/50 ML PIGGYBACK IV.SIG SCH ×3 (04:03→20:07)
[2017-12-23 05:35] LABS: ABG Base Excess -2.6 mmol/L (-2-2); ABG PCO2 24 mmHg (38-42); ABG PO2 166 mmHg (61-120)
[2017-12-23] MEDS: Vasopressin Inj 40 UNIT in Sodium Chlor 0.9% Inj 98 ML IV.CONT SCH ×2 (06:18→13:36)
[2017-12-23] MEDS: Chlorhexidine 0.12% Oral Kit 15 ML UDC OROPHARYNG SCH ×2 (08:35→20:08)
[2017-12-23] MEDS: Enoxaparin Inj 30 MG/0.3 ML Syringe SQ SCH (08:35)
[2017-12-23] MEDS: Mupirocin 2% Nasal Oint Topical Syringe EACH NARE SCH ×2 (08:35→20:09)
[2017-12-23] MEDS: Famotidine PF Inj 20 MG/2 ML Vial IV.PUSH SCH ×2 (08:36→20:10)
[2017-12-23] MEDS: Senna/Docusate Sodium 8.6/50 MG Tablet PO SCH ×2 (08:36→20:10)
[2017-12-23 11:19] LABS: Baso # (Auto) 0.1 th/mm3 (0.0-0.2); Baso % (Auto) 0.4 % (0.0-2.0); Eos # (Auto) 0.1 th/mm3 (0.0-0.4); Eos % (Auto) 0.6 % (0.0-4.0); Hematocrit 28.2 % (35.0-46.0); Hemoglobin 9.6 gm/dL (11.6-15.3); Lymph # (Auto) 2.2 th/mm3 (1.0-4.8); Lymph % (Auto) 9.7 % (9.0-44.0); Mean Corpuscular Hemoglobin 30.4 pg (27.0-34.0); Mean Corpuscular Volume 89.6 fL (80.0-100.0); Mean Platelet Volume 10.2 fL (7.0-11.0); Mono # (Auto) 0.5 th/mm3 (0.0-0.9); Mono % (Auto) 2.1 % (0.0-8.0); Neut # (Auto) 19.4 th/mm3 (1.8-7.7); Neut % (Auto) 87.2 % (16.0-70.0); Platelet Count 116 th/mm3 (150-450); Red Blood Count 3.15 mil/mm3 (4.00-5.30); Red Cell Distribution Width 16.6 % (11.6-17.2); White Blood Count 22.2 th/mm3 (4.0-11.0)
[2017-12-23 11:31] LABS: Activated Partial Thrombo Time 36.2 sec (23.4-31.7); INR 1.3 Ratio; Prothrombin Time 13.1 sec (9.8-11.6)
[2017-12-23 11:46] LABS: Calcium 6.8 mg/dL (8.5-10.1); Carbon Dioxide 21.5 meq/L (21.0-32.0); Potassium 3.2 meq/L (3.5-5.1)
[2017-12-23] MEDS: DAPTOmycin Inj 400 MG in Sodium Chlor 0.9% Inj 100 ML IV.SIG SCH (11:59)
--- NOTE | 2017-12-23 12:09 | P.PNID ---
Subjective Remarks: ID xcover for Dr Chavis Discussed with RN. Sedated. On the ventilator. Patient remains on vasopressin and phenylephrine no fever no fever. WBC remain elevated. Due to go for vacuum change tomorrow or sunday. Antibiotics: Clindamycin. daptomycin zosyn Allergies/Adverse Reactions: Allergies No Known Allergies Allergy (Verified 12/15/17 07:54) Objective Vital Signs 12/22/17 13:15 12/22/17 13:30 12/22/17 13:45 Temperature 97.5 F L 97.5 F L 97.5 F L Pulse Rate 93 H 96 H 94 H Respiratory Rate 22 22 22 Pulse Oximetry 94 L 96 96 12/22/17 14:00 12/22/17 14:15 12/22/17 14:30 Temperature 97.7 F 97.7 F 97.7 F Pulse Rate 91 H 99 H 96 H Respiratory Rate 22 22 32 H Pulse Oximetry 96 95 96 12/22/17 14:45 12/22/17 15:00 12/22/17 15:15 Temperature 97.9 F 98.1 F 97.7 F Pulse Rate 94 H 98 H 96 H Respiratory Rate 22 24 23 Pulse Oximetry 96 96 96 12/22/17 15:30 12/22/17 15:45 12/22/17 16:00 Temperature 98.2 F 98.1 F 98.4 F Pulse Rate 94 H 95 H 96 H Respiratory Rate 23 22 22 Pulse Oximetry 96 96 95 12/22/17 16:15 12/22/17 16:17 12/22/17 20:00 Temperature 98.4 F 98.6 F Pulse Rate 88 92 H Respiratory Rate 22 22 22 Pulse Oximetry 96 96 98 12/22/17 20:33 12/23/17 00:00 12/23/17 00:06 Temperature 98.6 F Pulse Rate 92 H Respiratory Rate 23 22 22 Pulse Oximetry 98 97 99 12/23/17 01:00 EST 12/23/17 03:37 12/23/17 04:00 Temperature 98.2 F Pulse Rate 84 94 H Respiratory Rate 22 22 Pulse Oximetry 98 97 12/23/17 07:00 12/23/17 07:15 12/23/17 07:30 Temperature 99.3 F 99.3 F 99.3 F Pulse Rate 96 H 95 H 96 H Respiratory Rate 16 16 16 Pulse Oximetry 97 95 94 L 12/23/17 07:45 12/23/17 08:00 12/23/17 08:19 Temperature 98.8 F 99.3 F Pulse Rate 100 H 102 H Respiratory Rate 16 16 18 Pulse Oximetry 96 95 95 12/23/17 09:00 Temperature Pulse Rate 93 H Respiratory Rate Pulse Oximetry Intake & Output 12/22/17 12/23/17 12/23/17 19:59 06:59 18:59 Intake Total 900 / 900 Output Total Balance 900 / 900 Weight Intake: IV 900 / 900 D5W/LR Inj 1,000 ML @ 75 mls/hr 850 / 850 IV.CONT .[id number] RICARDO Rx#: [id number] Neosynephrine Inj 40 MG In D5W Inj 496 ML @ 40 MCG/MIN 30 mls/ hr IV.CONT TITRATE PRN Rx#: [id number] Diprivan 1000 mg/100 ml Inj 1, 000 mg In 100 ml @ 5 MCG/KG/MIN 1.837 mls/hr IV.CONT TITRATE PRN Rx#:[id number] Pitressin Inj 40 UNIT In NS Inj 98 ML @ 0.04 UNITS/MIN 6 mls/ hr IV.CONT CONT RICARDO Rx#: [id number] Cleocin 900 mg/NS Premix 900 mg 50 / 50 In 50 ml @ 100 mls/hr IV.SIG Q8H RICARDO Rx#:[id number] Cubicin Inj 400 MG In NS Inj 100 ML @ 200 mls/hr IV.SIG Q24H RICARDO Rx#:[id number] Zosyn 4.5 GM Premix 4.5 gm In 100 ml @ 200 mls/hr IV.SIG Q6H RICARDO Rx#:[id number] KCl 40 mEq Premix Inj 40 meq In 100 ml @ 25 mls/hr IV.SIG UNSCH PRN Rx#:[id number] fentaNYL 10 mcg/mL Premix Drip 2,500 mcg In 250 ml @ 50 MCG/HR 5 mls/hr IV.SIG TITRATE PRN Rx #:[id number] Output: Stool Urine Amount (Catheter) 1 Gastric Drainage Nasogastric Tube Wound Drainage Sacrum Wound Vac Amount Posterior Sacrum Other: Mode Setting Posterior Sacrum Continuous Date of Last Bowel Movement 12/23/17 12/20/17 18:00 Catheterized Urine Urine Culture - Final Talia tropicalis 12/15/17 06:30 Blood - Peripheral Aerobic Blood Culture - Final No growth in 5 days 12/15/17 06:30 Blood - Peripheral Anaerobic Blood Culture - Final No growth in 5 days 12/15/17 06:45 Blood - Peripheral Aerobic Blood Culture - Final No growth in 5 days 12/15/17 06:45 Blood - Peripheral Anaerobic Blood Culture - Final No growth in 5 days Lab - Hematology Results 12/22/17 12/23/17 04:43 09:00 WBC 24.1 H 22.2 H RBC 3.47 L 3.15 L Hgb 10.5 L 9.6 L Hct 29.7 L 28.2 L MCV 85.5 89.6 D MCH 30.3 30.4 MCHC 35.4 34.0 RDW 16.0 16.6 Plt Count 78 L 116 L D MPV 10.2 10.2 Prelim Diff (Auto) Slide review pending Slide review pending Neut % (Auto) 87.7 H 87.2 H Lymph % (Auto) 10.3 9.7 [place] % (Auto) 1.4 2.1 Eos % (Auto) 0.1 0.6 Baso % (Auto) 0.5 0.4 Neut # (Auto) 21.2 H 19.4 H Lymph # (Auto) 2.5 2.2 [place] # (Auto) 0.3 0.5 Eos # (Auto) 0.0 0.1 Baso # (Auto) 0.1 0.1 WBC Differential Manual diff final Seg Neuts % (Manual) 68 Band Neuts % (Manual) 16 H Lymphocytes % (Manual) 12 Monocytes % (Manual) 3 Metamyelocytes % (Man) 1 Abs Neuts (Manual) 20.5 H Differential Comment . . Toxic Granulation 2+ H Platelet Estimate Low L Platelet Morphology Normal Lab - Chemistry Results 12/21/17 12/21/17 12/21/17 16:59 21:45 21:48 Sodium Potassium Chloride Carbon Dioxide Anion Gap BUN Creatinine Estimated GFR POC Glucose 252 H 323 H 275 H Random Glucose Calcium Prot Corrected Calcium Total Bilirubin AST ALT Alkaline Phosphatase Total Protein Albumin 12/22/17 12/22/17 12/22/17 00:53 04:43 07:52 Sodium 133 L Potassium 2.9 L* Chloride 100 Carbon Dioxide 20.7 L Anion Gap 12 BUN 30 H Creatinine 0.95 Estimated GFR 62 L POC Glucose 223 H 149 H Random Glucose 164 H Calcium 6.8 L* Prot Corrected Calcium 7.4 L* Total Bilirubin 1.0 AST 20 ALT 8 L Alkaline Phosphatase 498 H Total Protein 5.9 L Albumin 1.1 L 12/22/17 12/22/17 12/22/17 13:16 15:45 15:50 Sodium Potassium 3.6 Chloride Carbon Dioxide Anion Gap BUN Creatinine Estimated GFR POC Glucose 200 H 217 H Random Glucose Calcium Prot Corrected Calcium Total Bilirubin AST ALT Alkaline Phosphatase Total Protein Albumin 12/22/17 12/23/17 12/23/17 20:55 00:28 04:00 Sodium Potassium Chloride Carbon Dioxide Anion Gap BUN Creatinine Estimated GFR POC Glucose 209 H 163 H 132 H Random Glucose Calcium Prot Corrected Calcium Total Bilirubin AST ALT Alkaline Phosphatase Total Protein Albumin 12/23/17 12/23/17 12/23/17 07:38 09:00 11:34 Sodium 133 L Potassium 3.2 L Chloride 99 Carbon Dioxide 21.5 Anion Gap 13 BUN 33 H Creatinine 1.03 H Estimated GFR 56 L POC Glucose 176 H 208 H Random Glucose 172 H Calcium 6.8 L* Prot Corrected Calcium Total Bilirubin AST ALT Alkaline Phosphatase Total Protein Albumin Imaging: ITS Impressions Femur X-Ray 12/15/17 07:05 CONCLUSION: No fracture is identified. There is extensive soft tissue air in the right gluteal region and extending into the proximal and mid posterior thigh. The soft tissue air suggests an open wound. Pelvis X-Ray 12/15/17 07:05 CONCLUSION: No fracture is identified. However, there is extensive soft tissue air in the left gluteal region and left proximal thigh. Pelvis CT 12/15/17 07:52 CONCLUSION: 1. No fracture is identified. 2. Extensive subcutaneous and soft tissue gas bilaterally, left greater than right. It is most severe in the left gluteal region and extends into the proximal posterior thigh. The soft tissue air dissects through the gluteal musculature. There is adjacent subcutaneous edema. Chest X-Ray 12/17/17 04:00 CONCLUSION: No significant change. Left greater than right parenchymal opacities persist. Foot X-Ray 12/18/17 00:00 CONCLUSION: Remote small avulsion fracture at the fifth toe. No acute bony abnormality. Venous Doppler Study 12/22/17 00:00 CONCLUSION: Extensive deep vein thrombosis of the left upper extremity. Physical Exam: PHYSICAL EXAMINATION: GENERAL: Sedated. HEENT: Unable to assess fully. The sclerae has edema. Oropharynx intubated. edentulous NECK: Supple. No adenopathy or swelling. LUNGS: Bibasilar rhonchi. HEART: irregular S1 and S2. 1-2/6 systolic murmur at the left sternal border. ABDOMEN: Bowel sounds present, soft. BACK:VAC in place wound post debridement across the lower back, buttock and thigh. large output of 1 L + edema, erythema around EXTREMITIES: No clubbing, + L foot cyanosis + soft pitting 1+edema. abrasion with dry necrotic changes at left dorsal toes 2-4. R BKA well healed SKIN: No diffuse rash. Scattered ecchymotic lesions. NEUROLOGIC: Unable to assess. PSYCHIATRIC: Unable to assess. Assessment and Plan - Plan IMPRESSION: 1. Necrotizing fasciitis of the back, buttock and thigh. - GPC cocci on path 2. Septic shock. 3. Acute respiratory failure. 4. Chronic kidney disease. 5. Leukocytosis. RECOMMENDATIONS: Cont daptomycin. Continue clindamycin. Cont Zosyn. Monitor the WBC. Monitor clinical status. Monitor culture of the wound. Unfortunately he has been no wound cultures obtained at admission. yadira RN @ b/s
--- NOTE | 2017-12-23 12:09 | P.PNPOD ---
Subjective Interval history: Patient seen bedside. Intubated. Physical Exam Vital signs: Vital Signs 12/22/17 13:15 12/22/17 13:30 12/22/17 13:45 Temperature 97.5 F L 97.5 F L 97.5 F L Pulse Rate 93 H 96 H 94 H Respiratory Rate 22 22 22 Pulse Oximetry 94 L 96 96 12/22/17 14:00 12/22/17 14:15 12/22/17 14:30 Temperature 97.7 F 97.7 F 97.7 F Pulse Rate 91 H 99 H 96 H Respiratory Rate 22 22 32 H Pulse Oximetry 96 95 96 12/22/17 14:45 12/22/17 15:00 12/22/17 15:15 Temperature 97.9 F 98.1 F 97.7 F Pulse Rate 94 H 98 H 96 H Respiratory Rate 22 24 23 Pulse Oximetry 96 96 96 12/22/17 15:30 12/22/17 15:45 12/22/17 16:00 Temperature 98.2 F 98.1 F 98.4 F Pulse Rate 94 H 95 H 96 H Respiratory Rate 23 22 22 Pulse Oximetry 96 96 95 12/22/17 16:15 12/22/17 16:17 12/22/17 20:00 Temperature 98.4 F 98.6 F Pulse Rate 88 92 H Respiratory Rate 22 22 22 Pulse Oximetry 96 96 98 12/22/17 20:33 12/23/17 00:00 12/23/17 00:06 Temperature 98.6 F Pulse Rate 92 H Respiratory Rate 23 22 22 Pulse Oximetry 98 97 99 12/23/17 01:00 EST 12/23/17 03:37 12/23/17 04:00 Temperature 98.2 F Pulse Rate 84 94 H Respiratory Rate 22 22 Pulse Oximetry 98 97 12/23/17 07:00 12/23/17 07:15 12/23/17 07:30 Temperature 99.3 F 99.3 F 99.3 F Pulse Rate 96 H 95 H 96 H Respiratory Rate 16 16 16 Pulse Oximetry 97 95 94 L 12/23/17 07:45 12/23/17 08:00 12/23/17 08:19 Temperature 98.8 F 99.3 F Pulse Rate 100 H 102 H Respiratory Rate 16 16 18 Pulse Oximetry 96 95 95 12/23/17 09:00 Temperature Pulse Rate 93 H Respiratory Rate Pulse Oximetry Intake & Output 12/22/17 12/23/17 12/23/17 19:59 06:59 18:59 Intake Total 900 / 900 Output Total Balance 900 / 900 Weight Intake: IV 900 / 900 D5W/LR Inj 1,000 ML @ 75 mls/hr 850 / 850 IV.CONT .[id number] RICARDO Rx#: [id number] Neosynephrine Inj 40 MG In D5W Inj 496 ML @ 40 MCG/MIN 30 mls/ hr IV.CONT TITRATE PRN Rx#: [id number] Diprivan 1000 mg/100 ml Inj 1, 000 mg In 100 ml @ 5 MCG/KG/MIN 1.837 mls/hr IV.CONT TITRATE PRN Rx#:[id number] Pitressin Inj 40 UNIT In NS Inj 98 ML @ 0.04 UNITS/MIN 6 mls/ hr IV.CONT CONT RICARDO Rx#: [id number] Cleocin 900 mg/NS Premix 900 mg 50 / 50 In 50 ml @ 100 mls/hr IV.SIG Q8H RICARDO Rx#:[id number] Cubicin Inj 400 MG In NS Inj 100 ML @ 200 mls/hr IV.SIG Q24H RICARDO Rx#:[id number] Zosyn 4.5 GM Premix 4.5 gm In 100 ml @ 200 mls/hr IV.SIG Q6H RICARDO Rx#:[id number] KCl 40 mEq Premix Inj 40 meq In 100 ml @ 25 mls/hr IV.SIG UNSCH PRN Rx#:[id number] fentaNYL 10 mcg/mL Premix Drip 2,500 mcg In 250 ml @ 50 MCG/HR 5 mls/hr IV.SIG TITRATE PRN Rx #:[id number] Output: Stool Urine Amount (Catheter) 1 Gastric Drainage Nasogastric Tube Wound Drainage Sacrum Wound Vac Amount Posterior Sacrum Other: Mode Setting Posterior Sacrum Continuous Date of Last Bowel Movement 12/23/17 Narrative: Stable gangrene/eschar noted to left foot dorsal second and third digits. Edema noted to left lower extremity. Capillary refill time within normal limits to digits x5 left foot. Medications and Allergies Active Medications: Active Medications Acetaminophen (Tylenol) 650 mg NG/OG ONCE RICARDO Al Hydroxide/Mg Hydroxide (Milk Of Magnesia Liq) 30 ml PO Q12H PRN PRN Reason: Mild Constipation Albuterol (Duoneb Neb (Prn)) 1 ampul NEB Q2HR NEB PRN PRN Reason: WHEEZING Last Admin: 12/21/17 15:25 Dose: 1 ampul Bisacodyl (Dulcolax Supp) 10 mg RECTAL DAILY PRN PRN Reason: SEVERE CONSITIPATION Chlorhexidine Gluconate (Peridex 0.12% Oral Kit) 15 ml OROPHARYNG BID@0800, 2000 [facility] Last Admin: 12/23/17 08:35 Dose: 15 ml Chlorhexidine Gluconate (Chlorhexidine 2% Cloth) 3 pack TOPICAL DAILY@0400 [facility] Stop: 12/25/17 03:59 Last Admin: 12/23/17 04:03 Dose: 3 pack Chlorhexidine Gluconate (Chlorhexidine 2% Cloth) 3 pack TOPICAL DAILY@0400 PRN PRN Reason: Extra cloth needed Stop: 12/25/17 03:59 Dextrose (D50w Vial) 50 ml IV.PUSH UNSCH PRN PRN Reason: PER HYPOGLYCEMIA PROTOCOL Enoxaparin Sodium (Lovenox Inj) 30 mg SQ DAILY [facility] Last Admin: 12/23/17 08:35 Dose: 30 mg Famotidine (Pepcid Pf Inj) 20 mg IV.PUSH Q12HR [facility] Last Admin: 12/23/17 08:36 Dose: 20 mg Glucagon (Glucagon Inj) 1 mg OTHER PRN PRN PRN Reason: for Hypoglycemia Protocol Clindamycin/Sodium Chloride (Cleocin 900 Mg/Ns Premix) 900 mg in 50 mls @ 100 mls/hr IV.SIG Q8H [facility] Last Infusion: 12/23/17 11:33 Dose: Infused Norepinephrine Bitartrate 4 mg (/ Sodium Chloride) 250 mls @ 7.5 mls/hr IV.SIG TITRATE PRN; Protocol PRN Reason: Per Protocol Last Titration: 12/19/17 19:00 Dose: 0 mcg/min, 0 mls/hr Fentanyl (Fentanyl 10 Mcg/Ml Premix Drip) 2,500 mcg in 250 mls @ 5 mls/hr IV.SIG TITRATE PRN; Protocol PRN Reason: Per Protocol Last Admin: 12/22/17 17:20 Dose: 100 mcg/hr, 10 mls/hr Propofol (Diprivan 1000 Mg/100 Ml Inj) 1,000 mg in 100 mls @ 1.837 mls/hr IV.CONT TITRATE PRN; Protocol PRN Reason: Per Protocol Last Titration: 12/22/17 09:53 Dose: Infused Magnesium Sulfate 4 gm/ Sodium (Chloride) 100 mls @ 50 mls/hr IV.SIG UNSCH PRN PRN Reason: For Magnesium 0.9 - 1.1 mg/dL Magnesium Sulfate 2 gm/ Sodium (Chloride) 100 mls @ 50 mls/hr IV.SIG UNSCH PRN PRN Reason: For Magnesium 1.2 - 1.6 mg/dL Potassium Chloride (Kcl 20 Meq Premix Inj) 20 meq in 100 mls @ 50 mls/hr IV.SIG Q2H PRN PRN Reason: For Potassium 3.3 - 3.5 mEq/L Potassium Chloride (Kcl 40 Meq Premix Inj) 40 meq in 100 mls @ 25 mls/hr IV.SIG UNSCH PRN PRN Reason: For Potassium 3.3 - 3.5 mEq/L Last Infusion: 12/22/17 18:36 Dose: Infused Potassium Chloride (Kcl 20 Meq Premix Inj) 20 meq in 100 mls @ 50 mls/hr IV.SIG Q2H PRN PRN Reason: For Potassium 2.8 - 3.2 mEq/L Potassium Phosphate 30 mmol/ (Sodium Chloride) 260 mls @ 42 mls/hr IV.SIG UNSCH PRN PRN Reason: SEE LABEL COMMENTS Sodium Phosphate 30 mmol/ (Sodium Chloride) 260 mls @ 42 mls/hr IV.SIG UNSCH PRN PRN Reason: For Phosphorus < 2.5 mg/dL Potassium Chloride (Kcl 40 Meq Premix Inj) 40 meq in 100 mls @ 25 mls/hr IV.SIG Q2H PRN PRN Reason: For Potassium 2.8 - 3.2 mEq/L Last Infusion: 12/22/17 13:50 Dose: Infused Vasopressin 40 unit/ Sodium (Chloride) 100 mls @ 6 mls/hr IV.CONT CONT RICARDO; Protocol Last Admin: 12/23/17 06:18 Dose: 0.04 units/min, 6 mls/hr Dextrose/Lactated Ringer's (D5w/Lr Inj) 1,000 mls @ 75 mls/hr IV.CONT .[id number] RICARDO Last Admin: 12/23/17 11:05 Dose: 75 mls/hr Phenylephrine HCl 40 mg/ (Dextrose) 500 mls @ 30 mls/hr IV.CONT TITRATE PRN; Protocol PRN Reason: Per Protocol Last Admin: 12/23/17 01:15 EDT Dose: 20 mcg/min, 15 mls/hr Daptomycin 400 mg/ Sodium (Chloride) 100 mls @ 200 mls/hr IV.SIG Q24H [facility] Last Admin: 12/23/17 11:59 Dose: 200 mls/hr Piperacillin/Tazobactam/Dextrose (Zosyn 4.5 Gm Premix) 4.5 gm in 100 mls @ 200 mls/hr IV.SIG Q6H [facility] Last Admin: 12/23/17 11:59 Dose: 200 mls/hr Insulin Detemir (Levemir Inj) 20 unit SQ BID [facility] Last Admin: 12/17/17 08:14 Dose: Not Given Insulin Human Regular (Novolin R Correctional Sugar Inj) 0 units SQ Q4HR [facility]; Protocol Last Admin: 12/23/17 11:58 Dose: 4 units L-Arginine/L-Glutamine/Calcium HMB (Alek Packet) 1 packet NG/OG BID [facility] Last Admin: 12/23/17 08:35 Dose: 1 packet Lactulose (Lactulose Liq) 30 ml PO DAILY PRN PRN Reason: SEVERE CONSITIPATION Magnesium Oxide (Mag-Ox) 800 mg PO UNSCH PRN PRN Reason: For Magnesium 1.2 - 1.6 mg/dL Miscellaneous Medication () 1 each OROPHARYNG 0000,0400,1200,1600 [facility] Last Admin: 12/23/17 11:05 Dose: 1 each Mupirocin (Bactroban 2% Nasal Oint) 1 applicatio EACH NARE BID [facility] Stop: 12/24/17 08:59 Last Admin: 12/23/17 08:35 Dose: 1 applicatio Ondansetron HCl (Zofran Inj) 4 mg IV.PUSH Q6H PRN PRN Reason: NAUSEA OR VOMITING Potassium Bicarb/Potassium Chloride (K-Lyte Cl Eff) 50 meq PO UNSCH PRN PRN Reason: For Potassium 3.3 - 3.5 mEq/L Potassium Phosphate (K-Phos Original) 2,000 mg PO Q4H PRN PRN Reason: Phosphorus Less Than 2.5 mg/dL Potassium Phosphate (K-Phos Original) 2,000 mg PO UNSCH PRN PRN Reason: SEE LABEL COMMENTS Senna/Docusate Sodium (Belinda-Colace) 1 tab PO BID [facility] Last Admin: 12/23/17 08:36 Dose: Not Given Sennosides (Senokot) 17.2 mg PO Q12H PRN PRN Reason: Moderate Constipation Sodium Chloride (Ns Flush) 2 ml IV.FLUSH BID [facility] Last Admin: 12/23/17 08:36 Dose: 2 ml Sodium Chloride (Ns Flush) 2 ml IV.FLUSH PRN PRN PRN Reason: FLUSH AFTER USING IV ACCESS Terbutaline Sulfate (Brethine Inj) 1 mg SQ UNSCH PRN PRN Reason: For Extravasation Allergies Allergy/AdvReac Type Severity Reaction Status Date / Time No Known Allergies Allergy Verified 12/15/17 07:54 Home Medications Medication Instructions Recorded Confirmed Type insulin asp prt-insulin aspart 1 sliding scale dose SUBCUT UD 11/28/17 12/15/17 History [Novolog Mix 70-30 U-100 Insuln] insulin detemir U-100 [Levemir 15 unit SUBCUT QPM 11/28/17 12/15/17 History U-100 Insulin] Results - Labs CBC & Chem 7: 12/23/17 09:00 12/23/17 09:00 Laboratory Results - last 24 hr 12/22/17 12/22/17 12/22/17 13:16 15:45 15:50 WBC RBC Hgb Hct MCV MCH MCHC RDW Plt Count MPV Prelim Diff (Auto) Neut % (Auto) Lymph % (Auto) Petroleum % (Auto) Eos % (Auto) Baso % (Auto) Neut # (Auto) Lymph # (Auto) Petroleum # (Auto) Eos # (Auto) Baso # (Auto) Differential Comment PT INR APTT Puncture Site Patient Temperature O2 Saturation ABG pH ABG pCO2 ABG pO2 ABG HCO3 ABG O2 Content ABG Base Excess ABG Methemoglobin Hemoglobin Carboxyhemoglobin O2 Delivery Device Vent Setting Inspired O2 Critical Value Sodium Potassium 3.6 Chloride Carbon Dioxide Anion Gap BUN Creatinine Estimated GFR POC Glucose 200 H 217 H Random Glucose Calcium 12/22/17 12/23/17 12/23/17 20:55 00:28 04:00 WBC RBC Hgb Hct MCV MCH MCHC RDW Plt Count MPV Prelim Diff (Auto) Neut % (Auto) Lymph % (Auto) Petroleum % (Auto) Eos % (Auto) Baso % (Auto) Neut # (Auto) Lymph # (Auto) Petroleum # (Auto) Eos # (Auto) Baso # (Auto) Differential Comment PT INR APTT Puncture Site Patient Temperature O2 Saturation ABG pH ABG pCO2 ABG pO2 ABG HCO3 ABG O2 Content ABG Base Excess ABG Methemoglobin Hemoglobin Carboxyhemoglobin O2 Delivery Device Vent Setting Inspired O2 Critical Value Sodium Potassium Chloride Carbon Dioxide Anion Gap BUN Creatinine Estimated GFR POC Glucose 209 H 163 H 132 H Random Glucose Calcium 12/23/17 12/23/17 12/23/17 05:25 07:38 09:00 WBC 22.2 H RBC 3.15 L Hgb 9.6 L Hct 28.2 L MCV 89.6 D MCH 30.4 MCHC 34.0 RDW 16.6 Plt Count 116 L D MPV 10.2 Prelim Diff (Auto) Slide review pending Neut % (Auto) 87.2 H Lymph % (Auto) 9.7 Petroleum % (Auto) 2.1 Eos % (Auto) 0.6 Baso % (Auto) 0.4 Neut # (Auto) 19.4 H Lymph # (Auto) 2.2 Petroleum # (Auto) 0.5 Eos # (Auto) 0.1 Baso # (Auto) 0.1 Differential Comment . PT INR APTT Puncture Site Raquel Patient Temperature 98.6 O2 Saturation 97 ABG pH 7.53 H* ABG pCO2 24 L* ABG pO2 166 H ABG HCO3 20 L ABG O2 Content 13.9 ABG Base Excess -2.6 L ABG Methemoglobin 1.2 Hemoglobin 9.9 L Carboxyhemoglobin 1.2 O2 Delivery Device Ventilator Vent Setting See comment Inspired O2 40 Critical Value Yes Sodium Potassium Chloride Carbon Dioxide Anion Gap BUN Creatinine Estimated GFR POC Glucose 176 H Random Glucose Calcium 12/23/17 12/23/17 12/23/17 09:00 09:00 11:34 WBC RBC Hgb Hct MCV MCH MCHC RDW Plt Count MPV Prelim Diff (Auto) Neut % (Auto) Lymph % (Auto) Petroleum % (Auto) Eos % (Auto) Baso % (Auto) Neut # (Auto) Lymph # (Auto) Petroleum # (Auto) Eos # (Auto) Baso # (Auto) Differential Comment PT 13.1 H INR 1.3 APTT 36.2 H Puncture Site Patient Temperature O2 Saturation ABG pH ABG pCO2 ABG pO2 ABG HCO3 ABG O2 Content ABG Base Excess ABG Methemoglobin Hemoglobin Carboxyhemoglobin O2 Delivery Device Vent Setting Inspired O2 Critical Value Sodium 133 L Potassium 3.2 L Chloride 99 Carbon Dioxide 21.5 Anion Gap 13 BUN 33 H Creatinine 1.03 H Estimated GFR 56 L POC Glucose 208 H Random Glucose 172 H Calcium 6.8 L* Microbiology 12/20/17 18:00 Catheterized Urine Urine Culture - Final Talia tropicalis - Imaging Impressions Venous Doppler Study 12/22/17 00:00 CONCLUSION: Extensive deep vein thrombosis of the left upper extremity. Assessment and Plan - Plan 52-year-old female with left second third digit dry stable gangrene/eschar Continue with Betadine daily No acute signs of infection noted to left foot Will continue to evaluate and monitor No intervention planned at this time, will reevaluate once patient out of ICU
[2017-12-23 12:12] LABS: Total Protein 6.2 g/dL (6.4-8.2)
[2017-12-23 12:19] LABS: Calcium-Albumin Corrected 7.3 mg/dL (8.5-10.1)
[2017-12-23] MEDS: fentaNYL 10 mcg/mL Premix Drip 2,500 MCG/250 ML BAG IV.SIG PRN (12:30)
--- NOTE | 2017-12-23 12:33 | P.PNCC ---
Subjective Subjective Remarks/Hospital Course: This 52-year-old woman with long-standing uncontrolled diabetes mellitus and severe peripheral arterial disease related to a long-term heavy smoking history was found down at her home and initial blood glucose was 610. Her lower back and buttocks was exquisitely tender and a mid line stage IV sacral decubitus was oozing purulent material and inflamed and the surrounding soft tissue. White count was not elevated but 90% neutrophils. Temperature 97 degrees. Moderately encephalopathic though conversant. X-rays revealed no fractures in the pelvis but CAT scan demonstrated extensive subcutaneous air emanating in both directions left and right from the mid sacral region. This is clearly necrotizing fasciitis or some other gas-forming infection and the woman is critically ill. She received vancomycin, Zosyn, and clindamycin antibiotic therapy as quickly as possible and was transferred to the ICU for ongoing resuscitation. Because of worsening hemodynamic stability she required intubation and mechanical ventilation followed by central line placement on arrival to the ICU. Insulin drip infusion was started in the emergency department and glucose had declined into the low 400s. She was not in ketoacidosis but lactic acid was elevated at 3.1. General surgery and orthopedic surgery were consulted for recommendations and it was felt that this woman was too unstable to tolerate an operative procedure immediately. We continue her ongoing resuscitation and trial in the ICU at this stage. 12/16: Following aggressive resuscitation yesterday for the treatment of severe hyperglycemia, septic shock, respiratory failure, metabolic acidosis, acute kidney injury, the patient went to the operating room with an extensive wide debridement bilateral gluteal and left thigh soft tissue and muscle. Primary antibiotic coverage at this point is vancomycin, cefepime, clindamycin. The patient started to make urine late yesterday afternoon and has continued to acceptable output since. Lactic acidosis is 2.0 this morning but metabolic acidosis persists despite bicarb drip. She remains on vasopressor support and hemodynamically unstable. 12/17: s/p debridement of large nec fasc wound. remains in shock today. also very hypoglycemic requiring multiple D50 amps overnight. 12/18: back in worsening shock. vasopressor support higher. required 2L crystalloid overnight and additional 1L and 500cc albumin today. ivc completely flat on bedside echo. LVEF hyperdynamic. no pericardial effusion. spoken with gen surg. plan to go back early to eval for worsening necrosis. fio2 also up to 100% and peep 10- hypoxic, likely early ARDS. 12/19: clinically doing better. still in shock on vasopressors, but requirements are lower and lactate cleared. Cr slowly uptrending. SVV still 19% today and appears to be volume responsive. gen surgery ordered 2 units prbc for falling hgb in the setting of blood loss with surgical intervention yesterday. fio2 improving. glycemic control also improving. 12/20: Markedly impaired oxygenation persists. Still requiring elevated end expiratory pressure. Nutritional support continues but she remains catabolic. It will be difficult to keep up with her nutritional needs. 12/21: Continued severe sepsis requiring vasopressor support and mechanical ventilation. Oxygenation remains impaired and smoldering metabolic acidosis persists. Despite hemodynamic instability the patient's only hope for survival is with infection source control through further debridement. Clearly a greatly increased risk however for any procedure. 12/22: Persistent septic shock course requiring vasopressor support and regular debridement. Good antibiotic coverage but she continues to require adjustment of ventilator, hemodynamic support drugs, antibiotics, intravenous fluids. Her nutritional status was quite depleted on arrival and continues to deteriorate despite adjuvant nutrition. 12/23: Patient continues septic course. She has developed venous clot throughout her left internal jugular subclavian and axillary vein system. Not a candidate for full anticoagulation because of need for frequent surgical debridement. We will pull out the catheter today and placing In the right subclavian route. Objective Vital Signs / I&O: Vital Signs 12/22/17 13:30 12/22/17 13:45 12/22/17 14:00 Temperature 97.5 F L 97.5 F L 97.7 F Pulse Rate 96 H 94 H 91 H Respiratory Rate 22 22 22 Pulse Oximetry 96 96 96 12/22/17 14:15 12/22/17 14:30 12/22/17 14:45 Temperature 97.7 F 97.7 F 97.9 F Pulse Rate 99 H 96 H 94 H Respiratory Rate 22 32 H 22 Pulse Oximetry 95 96 96 12/22/17 15:00 12/22/17 15:15 12/22/17 15:30 Temperature 98.1 F 97.7 F 98.2 F Pulse Rate 98 H 96 H 94 H Respiratory Rate 24 23 23 Pulse Oximetry 96 96 96 12/22/17 15:45 12/22/17 16:00 12/22/17 16:15 Temperature 98.1 F 98.4 F 98.4 F Pulse Rate 95 H 96 H 88 Respiratory Rate 22 22 22 Pulse Oximetry 96 95 96 12/22/17 16:17 12/22/17 20:00 12/22/17 20:33 Temperature 98.6 F Pulse Rate 92 H Respiratory Rate 22 22 23 Pulse Oximetry 96 98 98 12/23/17 00:00 12/23/17 00:06 12/23/17 01:00 EST Temperature 98.6 F Pulse Rate 92 H 84 Respiratory Rate 22 22 Pulse Oximetry 97 99 12/23/17 03:37 12/23/17 04:00 12/23/17 07:00 Temperature 98.2 F 99.3 F Pulse Rate 94 H 96 H Respiratory Rate 22 22 16 Pulse Oximetry 98 97 97 12/23/17 07:15 12/23/17 07:30 12/23/17 07:45 Temperature 99.3 F 99.3 F 98.8 F Pulse Rate 95 H 96 H 100 H Respiratory Rate 16 16 16 Pulse Oximetry 95 94 L 96 12/23/17 08:00 12/23/17 08:19 12/23/17 09:00 Temperature 99.3 F Pulse Rate 102 H 93 H Respiratory Rate 16 18 Pulse Oximetry 95 95 Intake & Output 12/22/17 12/23/17 12/23/17 19:59 06:59 18:59 Intake Total 900 / 900 Output Total Balance 900 / 900 Weight Intake: IV 900 / 900 D5W/LR Inj 1,000 ML @ 75 mls/hr 850 / 850 IV.CONT .[id number] RICARDO Rx#: [id number] Neosynephrine Inj 40 MG In D5W Inj 496 ML @ 40 MCG/MIN 30 mls/ hr IV.CONT TITRATE PRN Rx#: [id number] Diprivan 1000 mg/100 ml Inj 1, 000 mg In 100 ml @ 5 MCG/KG/MIN 1.837 mls/hr IV.CONT TITRATE PRN Rx#:[id number] Pitressin Inj 40 UNIT In NS Inj 98 ML @ 0.04 UNITS/MIN 6 mls/ hr IV.CONT CONT RICARDO Rx#: [id number] Cleocin 900 mg/NS Premix 900 mg 50 / 50 In 50 ml @ 100 mls/hr IV.SIG Q8H RICARDO Rx#:[id number] Cubicin Inj 400 MG In NS Inj 100 ML @ 200 mls/hr IV.SIG Q24H RICARDO Rx#:[id number] Zosyn 4.5 GM Premix 4.5 gm In 100 ml @ 200 mls/hr IV.SIG Q6H RICARDO Rx#:[id number] KCl 40 mEq Premix Inj 40 meq In 100 ml @ 25 mls/hr IV.SIG UNSCH PRN Rx#:[id number] fentaNYL 10 mcg/mL Premix Drip 2,500 mcg In 250 ml @ 50 MCG/HR 5 mls/hr IV.SIG TITRATE PRN Rx #:[id number] Output: Stool Urine Amount (Catheter) 1 Gastric Drainage Nasogastric Tube Wound Drainage Sacrum Wound Vac Amount Posterior Sacrum Other: Mode Setting Posterior Sacrum Continuous Date of Last Bowel Movement 12/23/17 Result Diagrams: 12/23/17 09:00 12/23/17 09:00 Objective Remarks: General: Ill-appearing middle-aged woman, intubated and lightly sedated Head: Atraumatic, normal, edentulous Neck: Supple, orotracheal intubation Lungs: equal chest rise. Scattered rhonchi but acceptable air movement. peep 8. Heart: tachycardic rate and regular rhythm. no JVD. Abdomen: Soft, no guarding, no peritoneal irritation. Quiet Back: Wound VAC in place over lower lumbar region there is a moderate erythema to the skin over the pelvis and buttocks. Extremities: Warm, adequately perfused, status post below-knee amputation right side, necrotic ulceration over several toes left foot. Generalized edema involving the left arm. Neurological: Intubated and sedated, moves 4 limbs to stimulation. Pupils responsive. Cough, gag intact. Assessment and Plan - Problem List (1) Septic shock with acute organ dysfunction due to anaerobic bacteria Code(s): A41.4 - Sepsis due to anaerobes; R65.21 - Severe sepsis with septic shock Status: Acute (2) Acute respiratory failure Code(s): J96.00 - Acute respiratory failure, unspecified whether with hypoxia or hypercapnia Status: Acute (3) Necrotizing fasciitis Code(s): M72.6 - Necrotizing fasciitis Status: Acute (4) Type 2 diabetes mellitus with hyperosmolar nonketotic hyperglycemia Code(s): E11.01 - Type 2 diabetes mellitus with hyperosmolarity with coma Status: Acute (5) MARIO (acute kidney injury) Code(s): N17.9 - Acute kidney failure, unspecified Status: Acute (6) Lactic acidosis Code(s): E87.2 - Acidosis Status: Acute - Assessment and Plan Plan: Assessment: 52yF with large necrotizing soft tissue infection of the lower back and sacrum complicated by septic shock and multiorgan dysfunction. Continued vasopressors, ivf, and antibiotics. plan for re-evaluation surgically on Sunday. remains critically ill in ongoing shock. Plan: Neurological Acute metabolic encephalopathy -Sedation with propofol -Analgesia with fentanyl -Encephalopathy largely due to sepsis and hyperglycemia - RASS goal -2. Cardiovascular Septic Shock- persistent Myocardial dysfunction secondary to septic shock -levophed, vasopresin for goal map > 65 mmHg. - d/c milrinone today. Flowtrack suggesting CI > 3.5. if she needs additional inotropic therapy may benefit from epinephrine or dobutamine. -2 units of prbc for ongoing blood loss and anemia will help with intravascular volume expansion as well. -Follow acid-base balance closely Respiratory Acute hypoxic and hypercarbic respiratory failure- persistent -Intubation and mechanical ventilation -Bronchodilators - HOB elevated - vent bundle - wean fio2 for goal spo2 > 90% - no weaning of mechanical ventilation until shock improves -Repeat chest x-ray -Reduce PEEP to 8 Endocrinology Diabetes Severe hypoglycemia - hold levemir - transition from insulin drip to q4h med scale SSI. -Follow potassium and magnesium closely Hematology/Infectious Disease Septic Shock Necrotizing soft tissue infection -Obvious infection. -Follow white count and platelet count closely - abx per ID. continue clindamycin until third debridement rules out further extension of necrosis. (second debridement revealed ongoing necrosis) - daily cbc GI Acute protein calorie malnutrition- severe - NPO while in shock - NG tube to LIWS - prealbumin 5 on 12/18. severely malnourished. - daily bmp, mg, phos -Tube feeds infusing Acute kidney injury -Tristan required for hourly urine output -High risk for further deterioration in renal function -Needs Tristan at this time to protect perineal region HEME -Thrombosis left internal jugular, subclavian, axillary and distal arm veins. -Hold anticoagulation pending surgical debridement. Prophylaxis -Pepcid for GI ulcer prophylaxis -SCDs for DVT prophylaxis -Hold chemical DVT prophylaxis until ongoing surgical decisions regarding further debridement are made Lines: Left subclavian central venous line placed 10/27, discontinued 12/23. Right subclavian central venous line placed 12/23 Overall impression: This woman is critically ill and in septic shock with necrotizing fasciitis emanating from a deep chronic sacral decubitus ulcer. She remains hemodynamically unstable and requiring vasopressor support. Peripheral perfusion and urine output is acceptable. Critical care 37 minutes
--- NOTE | 2017-12-23 12:36 | P.PCN ---
Procedure: Diagnosis: Septic shock Procedure: Insertion triple-lumen right subclavian central venous line Narrative: Timeout performed. Patient properly identified. Right chest prepped and draped. Patient on mechanical ventilation with orotracheal intubation in the ICU and monitoring devices in place. 1% Xylocaine infiltration anesthetic used to anesthetize the clavicle and infraclavicular soft tissue. Using a thin-walled needle the subclavian vein was easily cannulated and a floppy wire was delivered to the right atrium. A dilator was passed and then the triple-lumen catheter was passed over the wire to a distance of 19 cm. All 3 lm were aspirated and flushed easily. A StatLock device was used to secure the line to the skin. Sterile dressing was applied. Chest x-ray was ordered will review.
[2017-12-23 12:45] LABS: Lymphocytes 10 % (9-44); Metamyelocytes 1 % (0-1); Monocytes 3 % (0-8); Tallied Nucleated RBC 1 (0-0)
[2017-12-23 12:46] LABS: Dimorphic RBC Present; Toxic Granulation 1+
--- NOTE | 2017-12-23 12:59 | XR ---
EXAM DATE: 12/23/2017 12:42 PM EST AGE/SEX: 52 years / Female INDICATIONS: Evaluate central line, right side. CLINICAL DATA: This is the patient's initial encounter. Patient reports that signs and symptoms have been present for 1 day and indicates a pain score of 0/10. MEDICAL/SURGICAL HISTORY: Diabetes. Gastroesophageal reflux disease. Osteomyelitis. Peripher al vascular disease. Diabetic gastroparesis. None. COMPARISON: [facility], CHEST 1V SINGLE AP, 12/17/2017. . FINDINGS: Interval placement of a right subclavian central venous catheter is noted. Tip of the catheter is piper ntified in the mid to lower right atrium. There is no evidence of pneumothorax. Left subclavian centr al line, endotracheal tube and nasogastric tube remain in place. Persistent bibasilar airspace disease is noted. There is improving lung aeration. CONCLUSION: Interval placement of right subclavian central line with its tip in the mid to lower right atrium. Improving lung aeration with persistent bibasilar airspace disease. No evidence of pneumothorax. Otherwise stable positioning of supportive devices. Electronically signed by: Aries Sevilla MD 12/23/2017 12:57 PM EST
[2017-12-23] MEDS: Potassium Chlor 40 mEq Premix 40 MEQ/100 ML PIGGYBACK IV.SIG PRN ×2 (13:45→15:40)
[2017-12-24] MEDS: Insulin NovoLIN Regular Correctional Sugar Inj SQ SCH ×7 (00:03→20:45)
[2017-12-24] MEDS: Oral Hygiene Kit OROPHARYNG SCH ×4 (00:04→16:00)
[2017-12-24] MEDS: Piperacil/Tazo 4.5 GM Premix 4.5 GM/100 ML BAG IV.SIG SCH ×6 (00:53→18:13)
[2017-12-24] MEDS ORDERED: Etomidate Inj 40 MG/20 ML Vial IV.PUSH SCH (02:00)
[2017-12-24] MEDS ORDERED: Etomidate Inj 40 MG/20 ML Vial IV.PUSH ONE (02:09)
[2017-12-24] MEDS: Propofol 1000 mg/100 ml Inj 1,000 MG/100 ML BOTTLE IV.CONT PRN ×3 (02:26→20:47)
--- NOTE | 2017-12-24 02:51 | XR ---
EXAM DATE: 12/24/2017 2:46 AM EST AGE/SEX: 52 years / Female INDICATIONS: ET tube placement. CLINICAL DATA: This is the patient's subsequent encounter. Patient reports that signs and symptoms h ave been present for 1 week and indicates a pain score of Nonresponsive. MEDICAL/SURGICAL HISTORY: . Benign hypertension. Decubital ulcer. Diabetes. GERD. Hepatitis C v irus. Clostridium difficile colitis. Diabetic gastroparesis. MRSA. Osteomyelitis. Peripheral neuropat hy. Peripheral vascular disease. . Below the knee amputation. section x2. COMPARISON: [facility], CHEST 1V SINGLE AP, 12/23/2017. . FINDINGS: Endotracheal tube is present with tip in good position couple of centimeters above the damian. Nasoga stric tube descends stomach. Right subclavian central line tip overlies the upper right atrium. Bibas ilar infiltrates are grossly unchanged. Cardiac contours are stable. All of the left subclavian line. CONCLUSION: Satisfactory tube and line positioning. Grossly stable aeration Electronically signed by: Derek Carreno MD 12/24/2017 2:50 AM EST
--- NOTE | 2017-12-24 03:12 | P.PCN ---
Date of procedure: 12/24/17 Procedure: PROCEDURE NOTE PROCEDURE: Endotracheal intubation INDICATION: Endotracheal tube dislodged. DETAILS OF PROCEDURE: I was called to the bedside of a patient with respiratory failure on mechanical ventilation due to sudden onset desaturation. When I arrived at bedside patient was "tonguing" ETT and had audible cuff leak. Administered etomidate 20 mg IV. 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 This tube was removed and new 8.0 endotracheal tube was advanced on first attempt, visualized passing through the cords. Correct placement was confirmed with colorimetric CO2 detector. Breath sounds were equal bilaterally. No sounds auscultated over the stomach. The endotracheal tube was secured with a commercial tube melgar at a depth of 23 cm at the lips. The patient was connected to the ventilator. The patient tolerated the procedure well without any apparent complication. Oxygen saturations were maintained greater than 96% at all times. Stat chest x-ray was ordered and demonstrated satisfactory endotracheal tube position.
[2017-12-24] MEDS: Dextrose 5%/Lactated Ringer's 1,000 ML IV.CONT SCH ×2 (03:30→14:05)
[2017-12-24] MEDS: Chlorhexidine Gluconate 2% 1 Pack (2 Cloths) TOPICAL SCH (03:35)
[2017-12-24] MEDS: Clindamycin 900 mg/NS Premix 900 MG/50 ML PIGGYBACK IV.SIG SCH ×2 (03:35→12:30)
[2017-12-24 04:48] LABS: Baso # (Auto) 0.2 th/mm3 (0.0-0.2); Baso % (Auto) 0.6 % (0.0-2.0); Eos # (Auto) 0.1 th/mm3 (0.0-0.4); Eos % (Auto) 0.4 % (0.0-4.0); Hematocrit 24.4 % (35.0-46.0); Hemoglobin 8.4 gm/dL (11.6-15.3); Lymph % (Auto) 11.4 % (9.0-44.0); Mean Corpuscular HGB Conc 34.3 % (32.0-36.0); Mean Corpuscular Hemoglobin 30.1 pg (27.0-34.0); Mean Corpuscular Volume 87.8 fL (80.0-100.0); Mean Platelet Volume 10.5 fL (7.0-11.0); Mono # (Auto) 0.5 th/mm3 (0.0-0.9); Mono % (Auto) 2.1 % (0.0-8.0); Neut # (Auto) 22.4 th/mm3 (1.8-7.7); Neut % (Auto) 85.5 % (16.0-70.0); Platelet Count 146 th/mm3 (150-450); Red Blood Count 2.78 mil/mm3 (4.00-5.30); Red Cell Distribution Width 16.6 % (11.6-17.2); White Blood Count 26.2 th/mm3 (4.0-11.0)
[2017-12-24 05:07] LABS: Calcium 6.9 mg/dL (8.5-10.1); Carbon Dioxide 20.5 meq/L (21.0-32.0); Potassium 3.5 meq/L (3.5-5.1)
[2017-12-24 05:19] LABS: Calcium-Albumin Corrected 7.6 mg/dL (8.5-10.1); Total Protein 5.8 g/dL (6.4-8.2)
[2017-12-24] MEDS: Vasopressin Inj 40 UNIT in Sodium Chlor 0.9% Inj 98 ML IV.CONT SCH ×2 (06:04→21:00)
[2017-12-24 06:15] LABS: ABG Base Excess -5.9 mmol/L (-2-2); ABG PCO2 30 mmHg (38-42); ABG PO2 264 mmHg (61-120)
[2017-12-24] MEDS: Senna/Docusate Sodium 8.6/50 MG Tablet PO SCH ×2 (08:13→20:46)
[2017-12-24] MEDS: Enoxaparin Inj 30 MG/0.3 ML Syringe SQ SCH (08:13)
[2017-12-24] MEDS: Chlorhexidine 0.12% Oral Kit 15 ML UDC OROPHARYNG SCH ×2 (08:21→20:45)
[2017-12-24] MEDS: Famotidine PF Inj 20 MG/2 ML Vial IV.PUSH SCH ×2 (08:21→20:46)
--- NOTE | 2017-12-24 11:35 | P.OP ---
- Preoperative Diagnosis (1) Necrotizing fasciitis of pelvic region and thigh - Postoperative Diagnosis (1) Necrotizing fasciitis of pelvic region and thigh Procedure: vac change to back buttock thigh Anesthesia: GETA Surgeon: Ventura Bazzi MD Estimated blood loss (mL): 5 Operation and Findings: no undrained areas
[2017-12-24] MEDS: DAPTOmycin Inj 400 MG in Sodium Chlor 0.9% Inj 100 ML IV.SIG SCH ×2 (12:09→13:39)
--- NOTE | 2017-12-24 13:44 | P.PNID ---
Subjective Remarks: Discussed with RN. Sedated. On the ventilator. Just came back from I&D and vacuum change. Systolic blood pressure is 100. Currently on 100% FiO2. Afebrile. WBC is higher. Post debridement 12/18/2017, 12/24/2017. This is a 52-year-old white female who was brought to the emergency department after she fell at home. The patient was noted to have profound weakness. She was evaluated in the emergency department and at that time had normal temperature and white blood cell count was also normal. She underwent CT scan of the abdomen and pelvis that showed extensive subcutaneous and soft tissue gas bilaterally with the left greater than right, most severe in the left gluteal region and extending into the proximal posterior thigh soft tissue and air-fluid dissecting through the gluteal musculature. The patient has a history of diabetes mellitus. Antibiotics: Clindamycin. daptomycin zosyn Allergies/Adverse Reactions: Allergies No Known Allergies Allergy (Verified 12/15/17 07:54) Objective Vital Signs 12/23/17 13:45 12/23/17 14:00 12/23/17 14:15 Temperature 99.0 F 98.8 F 98.8 F Pulse Rate 91 H 92 H 98 H Respiratory Rate 16 16 16 Pulse Oximetry 94 L 93 L 93 L 12/23/17 14:30 12/23/17 14:45 12/23/17 15:00 Temperature 98.8 F 98.8 F 98.8 F Pulse Rate 95 H 90 96 H Respiratory Rate 16 16 16 Pulse Oximetry 92 L 98 87 L 12/23/17 15:15 12/23/17 15:30 12/23/17 15:45 Temperature 98.8 F 98.8 F 98.8 F Pulse Rate 90 90 94 H Respiratory Rate 16 16 16 Pulse Oximetry 97 98 98 12/23/17 16:00 12/23/17 16:15 12/23/17 16:30 Temperature 99.0 F 98.8 F 98.8 F Pulse Rate 111 H 106 H Respiratory Rate 16 16 16 Pulse Oximetry 95 95 95 12/23/17 16:45 12/23/17 20:00 12/23/17 20:39 Temperature 98.6 F 99.0 F Pulse Rate 108 H 90 Respiratory Rate 16 16 17 Pulse Oximetry 95 12/24/17 00:00 12/24/17 00:13 12/24/17 01:00 Temperature 99.0 F Pulse Rate 106 H 96 H Respiratory Rate 16 16 Pulse Oximetry 95 12/24/17 03:54 12/24/17 04:00 12/24/17 07:00 Temperature 98.2 F Pulse Rate 86 74 Respiratory Rate 16 16 Pulse Oximetry 96 12/24/17 07:15 12/24/17 07:30 12/24/17 07:45 Temperature Pulse Rate 68 68 67 Respiratory Rate Pulse Oximetry 98 98 99 12/24/17 08:00 12/24/17 08:15 12/24/17 08:30 Temperature 98.4 F Pulse Rate 69 67 74 Respiratory Rate Pulse Oximetry 99 99 99 12/24/17 08:45 12/24/17 09:00 12/24/17 09:15 Temperature Pulse Rate 72 80 72 Respiratory Rate Pulse Oximetry 99 99 98 12/24/17 09:30 12/24/17 09:45 12/24/17 10:00 Temperature Pulse Rate 74 75 74 Respiratory Rate Pulse Oximetry 99 99 99 12/24/17 10:15 12/24/17 10:30 12/24/17 10:45 Temperature Pulse Rate 75 74 72 Respiratory Rate Pulse Oximetry 99 99 99 12/24/17 10:52 12/24/17 11:00 12/24/17 11:15 Temperature Pulse Rate 75 85 Respiratory Rate 16 Pulse Oximetry 98 100 97 12/24/17 11:30 12/24/17 11:45 12/24/17 12:38 Temperature Pulse Rate 91 H 99 H Respiratory Rate Pulse Oximetry 95 94 L 97 12/24/17 12:45 12/24/17 13:00 Temperature 98.2 F Pulse Rate 104 H 101 H Respiratory Rate Pulse Oximetry 96 90 L Intake & Output 12/23/17 12/24/17 12/24/17 18:59 06:59 18:59 Intake Total 1938 / 1938 1447 / 1447 450 / 450 Output Total 2350 / 2350 1925 / 1925 30 / 30 Balance -412 / -412 -478 / -478 420 / 420 Intake: IV 1864 / 1864 1350 / 1350 200 / 200 D5W/LR Inj 1,000 ML @ 75 mls/hr 850 / 850 1000 / 1000 IV.CONT .[id number] [facility] Rx#: [id number] Neosynephrine Inj 40 MG In D5W 250 / 250 Inj 496 ML @ 40 MCG/MIN 30 mls/ hr IV.CONT TITRATE PRN Rx#: [id number] Diprivan 1000 mg/100 ml Inj 1, 100 / 100 000 mg In 100 ml @ 5 MCG/KG/MIN 1.837 mls/hr IV.CONT TITRATE PRN Rx#:[id number] Pitressin Inj 40 UNIT In NS Inj 25 / 25 50 / 50 98 ML @ 0.04 UNITS/MIN 6 mls/ hr IV.CONT CONT [facility] Rx#: [id number] Cleocin 900 mg/NS Premix 900 mg 50 / 50 100 / 100 In 50 ml @ 100 mls/hr IV.SIG Q8H [facility] Rx#:[id number] Cubicin Inj 400 MG In NS Inj 100 / 100 100 ML @ 200 mls/hr IV.SIG Q24H [facility] Rx#:[id number] Zosyn 4.5 GM Premix 4.5 gm In 200 / 200 200 / 200 100 / 100 100 ml @ 200 mls/hr IV.SIG Q6H [facility] Rx#:[id number] KCl 40 mEq Premix Inj 40 meq In 200 / 200 100 ml @ 25 mls/hr IV.SIG Q2H PRN Rx#:[id number] fentaNYL 10 mcg/mL Premix Drip 189 / 189 2,500 mcg In 250 ml @ 50 MCG/HR 5 mls/hr IV.SIG TITRATE PRN Rx #:[id number] Tube Feeding 74 / 74 97 / 97 Anesthesia Amount 250 / 250 Output: Stool 50 / 50 150 / 150 Estimated Blood Loss 30 / 30 Urine Amount (Catheter) 450 / 450 525 / 525 1 450 / 450 525 / 525 Gastric Drainage 50 / 50 100 / 100 Nasogastric Tube 50 / 50 100 / 100 Wound Drainage 1800 / 1800 1150 / 1150 Sacrum 1800 / 1800 1150 / 1150 Other: Mode Setting Posterior Sacrum Continuous Continuous Continuous Date of Last Bowel Movement 12/23/17 12/24/17 12/20/17 18:00 Catheterized Urine Urine Culture - Final [facility] - Hematology Results 12/23/17 12/24/17 09:00 04:25 WBC 22.2 H 26.2 H RBC 3.15 L 2.78 L Hgb 9.6 L 8.4 L Hct 28.2 L 24.4 L MCV 89.6 D 87.8 MCH 30.4 30.1 MCHC 34.0 34.3 RDW 16.6 16.6 Plt Count 116 L D 146 L MPV 10.2 10.5 Prelim Diff (Auto) Slide review pending Neut % (Auto) 87.2 H 85.5 H Lymph % (Auto) 9.7 11.4 [place] % (Auto) 2.1 2.1 Eos % (Auto) 0.6 0.4 Baso % (Auto) 0.4 0.6 Neut # (Auto) 19.4 H 22.4 H Lymph # (Auto) 2.2 3.0 [place] # (Auto) 0.5 0.5 Eos # (Auto) 0.1 0.1 Baso # (Auto) 0.1 0.2 WBC Differential Manual diff final . Seg Neuts % (Manual) 72 H Band Neuts % (Manual) 14 H Lymphocytes % (Manual) 10 Monocytes % (Manual) 3 Metamyelocytes % (Man) 1 Abs Neuts (Manual) 19.3 H Nucleated RBCs/100 WBC 1 H Differential Comment . Auto diff final Toxic Granulation 1+ H Platelet Estimate Low L Platelet Morphology Enlarged H Dimorphic RBCs Present H Lab - Chemistry Results 12/22/17 12/22/17 12/22/17 15:45 15:50 20:55 Sodium Potassium 3.6 Chloride Carbon Dioxide Anion Gap BUN Creatinine Estimated GFR POC Glucose 217 H 209 H Random Glucose Calcium Prot Corrected Calcium Total Protein 12/23/17 12/23/17 12/23/17 00:28 04:00 07:38 Sodium Potassium Chloride Carbon Dioxide Anion Gap BUN Creatinine Estimated GFR POC Glucose 163 H 132 H 176 H Random Glucose Calcium Prot Corrected Calcium Total Protein 12/23/17 12/23/17 12/23/17 09:00 11:34 16:22 Sodium 133 L Potassium 3.2 L Chloride 99 Carbon Dioxide 21.5 Anion Gap 13 BUN 33 H Creatinine 1.03 H Estimated GFR 56 L POC Glucose 208 H 192 H Random Glucose 172 H Calcium 6.8 L* Prot Corrected Calcium 7.3 L* Total Protein 6.2 L 12/24/17 12/24/17 12/24/17 00:22 00:58 04:25 Sodium 135 L Potassium 3.8 3.5 Chloride 103 Carbon Dioxide 20.5 L Anion Gap 12 BUN 36 H Creatinine 1.17 H Estimated GFR 48 L POC Glucose 280 H Random Glucose 187 H Calcium 6.9 L* Prot Corrected Calcium 7.6 L Total Protein 5.8 L 12/24/17 08:06 Sodium Potassium Chloride Carbon Dioxide Anion Gap BUN Creatinine Estimated GFR POC Glucose 166 H Random Glucose Calcium Prot Corrected Calcium Total Protein Imaging: ITS Impressions Femur X-Ray 12/15/17 07:05 CONCLUSION: No fracture is identified. There is extensive soft tissue air in the right gluteal region and extending into the proximal and mid posterior thigh. The soft tissue air suggests an open wound. Pelvis X-Ray 12/15/17 07:05 CONCLUSION: No fracture is identified. However, there is extensive soft tissue air in the left gluteal region and left proximal thigh. Pelvis CT 12/15/17 07:52 CONCLUSION: 1. No fracture is identified. 2. Extensive subcutaneous and soft tissue gas bilaterally, left greater than right. It is most severe in the left gluteal region and extends into the proximal posterior thigh. The soft tissue air dissects through the gluteal musculature. There is adjacent subcutaneous edema. Foot X-Ray 12/18/17 00:00 CONCLUSION: Remote small avulsion fracture at the fifth toe. No acute bony abnormality. Venous Doppler Study 12/22/17 00:00 CONCLUSION: Extensive deep vein thrombosis of the left upper extremity. Chest X-Ray 12/24/17 02:15 CONCLUSION: Satisfactory tube and line positioning. Grossly stable aeration Physical Exam: PHYSICAL EXAMINATION: GENERAL: Sedated. HEENT: Unable to assess fully. The sclerae has edema. Oropharynx intubated. NECK: Supple. No adenopathy or swelling. LUNGS: Bibasilar rhonchi. HEART: irregular S1 and S2. 1-2/6 systolic murmur at the left sternal border. ABDOMEN: Bowel sounds present, soft. BACK: Surgical wound post debridement across the lower back, buttock and thigh. Vac in place. EXTREMITIES: No clubbing, no cyanosis. 2+ edema. Left upper extremity has 3+ edema. abrasion with dry necrotic changes at left dorsal toes 2-4. SKIN: No diffuse rash. Scattered ecchymotic lesions. NEUROLOGIC: Unable to assess. PSYCHIATRIC: Unable to assess. Assessment and Plan - Plan IMPRESSION: 1. Necrotizing fasciitis of the back, buttock and thigh. 2. Septic shock. 3. Acute respiratory failure. 4. Chronic kidney disease. 5. Leukocytosis. WBC remains elevated. 6. Left upper extremity DVT. Remains critically ill. RECOMMENDATIONS: 1. Culture of wound. 2. 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 3. Stop clindamycin. 4. Continue Zosyn. 5. Add Diflucan for fungal coverage. 6. Monitor the WBC. 7. Monitor clinical status.
[2017-12-24] MEDS: fentaNYL 10 mcg/mL Premix Drip 2,500 MCG/250 ML BAG IV.SIG PRN (14:34)
--- NOTE | 2017-12-24 15:36 | P.PNPAL ---
Reason for Visit Reason for visit: a. To assist with evaluation and management of symptoms including: Pain, debility b. To assist medical decision maker(s) with: better understanding of current medical conditions; weighing benefits/burdens of medical treatment options; making medical treatment decisions. Subjective Subjective/Interval History: Palliative Care follow-up for assist with symptom management, family support and goals of care. Patient remains critical ill on ventilator support and vasopressors to include vasopressin and Rj-Synephrine. Status post I&D with wound VAC exchange on 12/21 and today 12/24. Currently sedated on propofol and fentanyl. Endotracheal tube was exchanged earlier this morning, currently on 40 % FiO2. No signs of discomfort noted. Infectious disease following for sepsis from necrotizing fasciitis of the back, buttocks and thigh. Patient with DVT to left internal jugular subclavian and axillary vein systems, right IJ triple- lumen placed on 12/23.Patient with multiple chronic ongoing comorbidities who remains critically ill. Very poor overall prognosis for survival. No family at bedside during my visit. Telephone call to patient's Tyrone x 2, left message on voicemail. telephone conversation with patient's sister Linette , medical update provided. Reviewed current treatment plan. Sister verbalized that family is considering visiting patient this incoming weekend. Reviewed that patient remains critically ill with a guarded prognosis. Linette reports that she has been unable to talk to patient's since mid last week, appreciates medical update provided. Case discussed with palliative care social media marketing analyst Sandhya Henry and bedside RN. Advance Directives Living Will: Never completed Health Care Surrogate: Never completed Health Care Surrogate Name and Number: HCP Tyrone Middleton Documented care wishes:: No known documented care wishes have been completed Objective Vital Signs: Vital Signs 12/23/17 15:15 12/23/17 15:30 12/23/17 15:45 Temperature 98.8 F 98.8 F 98.8 F Pulse Rate 90 90 94 H Respiratory Rate 16 16 16 Pulse Oximetry 97 98 98 12/23/17 16:00 12/23/17 16:15 12/23/17 16:30 Temperature 99.0 F 98.8 F 98.8 F Pulse Rate 111 H 106 H Respiratory Rate 16 16 16 Pulse Oximetry 95 95 95 12/23/17 16:45 12/23/17 20:00 12/23/17 20:39 Temperature 98.6 F 99.0 F Pulse Rate 108 H 90 Respiratory Rate 16 16 17 Pulse Oximetry 95 12/24/17 00:00 12/24/17 00:13 12/24/17 01:00 Temperature 99.0 F Pulse Rate 106 H 96 H Respiratory Rate 16 16 Pulse Oximetry 95 12/24/17 03:54 12/24/17 04:00 12/24/17 07:00 Temperature 98.2 F Pulse Rate 86 74 Respiratory Rate 16 16 Pulse Oximetry 96 12/24/17 07:15 12/24/17 07:30 12/24/17 07:45 Temperature Pulse Rate 68 68 67 Respiratory Rate Pulse Oximetry 98 98 99 12/24/17 08:00 12/24/17 08:15 12/24/17 08:30 Temperature 98.4 F Pulse Rate 69 67 74 Respiratory Rate Pulse Oximetry 99 99 99 12/24/17 08:45 12/24/17 09:00 12/24/17 09:15 Temperature Pulse Rate 72 80 72 Respiratory Rate Pulse Oximetry 99 99 98 12/24/17 09:30 12/24/17 09:45 12/24/17 10:00 Temperature Pulse Rate 74 75 74 Respiratory Rate Pulse Oximetry 99 99 99 12/24/17 10:15 12/24/17 10:30 12/24/17 10:45 Temperature Pulse Rate 75 74 72 Respiratory Rate Pulse Oximetry 99 99 99 12/24/17 10:52 12/24/17 11:00 12/24/17 11:15 Temperature Pulse Rate 75 85 Respiratory Rate 16 Pulse Oximetry 98 100 97 12/24/17 11:30 12/24/17 11:45 12/24/17 12:38 Temperature Pulse Rate 91 H 99 H Respiratory Rate Pulse Oximetry 95 94 L 97 12/24/17 12:45 12/24/17 13:00 Temperature 98.2 F Pulse Rate 104 H 101 H Respiratory Rate Pulse Oximetry 96 90 L Intake & Output 12/23/17 12/24/17 12/24/17 18:59 06:59 18:59 Intake Total 1937 / 1937 1447 / 1447 850 / 850 Output Total 2350 / 2350 1925 / 1925 30 / 30 Balance -412 / -412 -478 / -478 820 / 820 Intake: IV 1864 / 1864 1350 / 1350 600 / 600 D5W/LR Inj 1,000 ML @ 75 mls/hr 850 / 850 1000 / 1000 IV.CONT .[id number] RICARDO Rx#: [id number] Neosynephrine Inj 40 MG In D5W 250 / 250 Inj 496 ML @ 40 MCG/MIN 30 mls/ hr IV.CONT TITRATE PRN Rx#: [id number] Diprivan 1000 mg/100 ml Inj 1, 100 / 100 000 mg In 100 ml @ 5 MCG/KG/MIN 1.837 mls/hr IV.CONT TITRATE PRN Rx#:[id number] Pitressin Inj 40 UNIT In NS Inj 25 / 25 50 / 50 98 ML @ 0.04 UNITS/MIN 6 mls/ hr IV.CONT CONT RICARDO Rx#: [id number] Cleocin 900 mg/NS Premix 900 mg 50 / 50 100 / 100 50 / 50 In 50 ml @ 100 mls/hr IV.SIG Q8H RICARDO Rx#:[id number] Cubicin Inj 400 MG In NS Inj 100 / 100 100 / 100 100 ML @ 200 mls/hr IV.SIG Q24H RICARDO Rx#:[id number] Zosyn 4.5 GM Premix 4.5 gm In 200 / 200 200 / 200 100 / 100 100 ml @ 200 mls/hr IV.SIG Q6H RICARDO Rx#:[id number] KCl 40 mEq Premix Inj 40 meq In 200 / 200 100 ml @ 25 mls/hr IV.SIG Q2H PRN Rx#:[id number] fentaNYL 10 mcg/mL Premix Drip 189 / 189 250 / 250 2,500 mcg In 250 ml @ 50 MCG/HR 5 mls/hr IV.SIG TITRATE PRN Rx #:[id number] Tube Feeding 74 / 74 97 / 97 Anesthesia Amount 250 / 250 Output: Stool 50 / 50 150 / 150 Estimated Blood Loss 30 / 30 Urine Amount (Catheter) 450 / 450 525 / 525 1 450 / 450 525 / 525 Gastric Drainage 50 / 50 100 / 100 Nasogastric Tube 50 / 50 100 / 100 Wound Drainage 1800 / 1800 1150 / 1150 Sacrum 1800 / 1800 1150 / 1150 Other: Mode Setting Posterior Sacrum Continuous Continuous Continuous Date of Last Bowel Movement 12/23/17 12/24/17 Physical Exam: CONSTITUTIONAL/GENERAL: This is a chronically ill appearing female who looks older than her stated age. currently intubated on mechanical vent TUBES/LINES/DRAINS:ETT, NGT, right triple-lumen subclavian central line, Tristan, SCDs, PIV, rectal tube with moderate amount of liquid stool. SKIN: Very pale. Abrasion on left forehead. Scattered ecchymosis to upper extremities. Wound VAC in place over lower lumbar region with blood-tinged drainage -not observed. Skin temperature appropriate. Not diaphoretic. HEAD: Atraumatic. Normocephalic. EYES: Pupils equal and round, reactive. No scleral icterus. No injection or drainage. ENT: Nose without bleeding or purulent drainage. Moist oral mucosa. NECK: Trachea midline. Supple, nontender. CARDIOVASCULAR: Regular rate and rhythm. RESPIRATORY/CHEST: Intubated on vent. FiO2 40%. Breath sounds equal bilaterally. GASTROINTESTINAL: Abdomen soft, non-tender, nondistended. No guarding. Bowel sounds present. GENITOURINARY: Without palpable bladder distension. Tristan catheter in place. MUSCULOSKELETAL: Status post right BKA. Left foot cool to touch; several toes with necrotic ulcerations on left foot. LYMPHATICS: No palpable cervical or supraclavicular adenopathy. NEUROLOGICAL: Sedated on fentanyl and propofol. PSYCHIATRIC: Unable to assess given current level of responsiveness Diagnostic Tests Laboratory: Laboratory Results - last 72 hr 12/20/17 12/21/17 12/21/17 18:00 10:55 16:59 WBC RBC Hgb Hct MCV MCH MCHC RDW Plt Count MPV Prelim Diff (Auto) Neut % (Auto) Lymph % (Auto) [place] % (Auto) Eos % (Auto) Baso % (Auto) Neut # (Auto) Lymph # (Auto) [place] # (Auto) Eos # (Auto) Baso # (Auto) WBC Differential Seg Neuts % (Manual) Band Neuts % (Manual) Lymphocytes % (Manual) Monocytes % (Manual) Metamyelocytes % (Man) Abs Neuts (Manual) Nucleated RBCs/100 WBC Differential Comment Toxic Granulation Platelet Estimate Platelet Morphology Dimorphic RBCs PT INR APTT Puncture Site Patient Temperature O2 Saturation ABG pH ABG pCO2 ABG pO2 ABG HCO3 ABG O2 Content ABG Base Excess ABG Methemoglobin Hemoglobin Carboxyhemoglobin O2 Delivery Device Vent Setting Inspired O2 Critical Value Sodium Potassium Chloride Carbon Dioxide Anion Gap BUN Creatinine Estimated GFR POC Glucose 252 H Random Glucose Calcium Prot Corrected Calcium Total Bilirubin AST ALT Alkaline Phosphatase Total Protein Albumin Urine Color Yellow Urine Clarity Hazy H Urine pH 5.0 Ur Specific [place] 1.012 Urine Protein 30 H Urine Glucose (UA) Negative Urine Ketones Negative Urine Occult Blood Moderate H Urine Nitrate Negative Urine Bilirubin Negative Urine Urobilinogen Less than 2 Ur Leukocyte Esterase Trace H Urine RBC 75 H Urine WBC 23 H Ur Squamous Epith Cells 1 Urine Bacteria Occasional H Hyaline Casts 18 Urine Mucus Few H Urine Yeast Moderate H Ur Yeast w Hyphae Few H Micro UA Comment Cath-culture ind Urine Culture Comments Cath-cult indicated MTS Gel Crossmatch See Detail 12/21/17 12/21/17 12/22/17 21:45 21:48 00:53 WBC RBC Hgb Hct MCV MCH MCHC RDW Plt Count MPV Prelim Diff (Auto) Neut % (Auto) Lymph % (Auto) [place] % (Auto) Eos % (Auto) Baso % (Auto) Neut # (Auto) Lymph # (Auto) [place] # (Auto) Eos # (Auto) Baso # (Auto) WBC Differential Seg Neuts % (Manual) Band Neuts % (Manual) Lymphocytes % (Manual) Monocytes % (Manual) Metamyelocytes % (Man) Abs Neuts (Manual) Nucleated RBCs/100 WBC Differential Comment Toxic Granulation Platelet Estimate Platelet Morphology Dimorphic RBCs PT INR APTT Puncture Site Patient Temperature O2 Saturation ABG pH ABG pCO2 ABG pO2 ABG HCO3 ABG O2 Content ABG Base Excess ABG Methemoglobin Hemoglobin Carboxyhemoglobin O2 Delivery Device Vent Setting Inspired O2 Critical Value Sodium Potassium Chloride Carbon Dioxide Anion Gap BUN Creatinine Estimated GFR POC Glucose 323 H 275 H 223 H Random Glucose Calcium Prot Corrected Calcium Total Bilirubin AST ALT Alkaline Phosphatase Total Protein Albumin Urine Color Urine Clarity Urine pH Ur Specific [place] Urine Protein Urine Glucose (UA) Urine Ketones Urine Occult Blood Urine Nitrate Urine Bilirubin Urine Urobilinogen Ur Leukocyte Esterase Urine RBC Urine WBC Ur Squamous Epith Cells Urine Bacteria Hyaline Casts Urine Mucus Urine Yeast Ur Yeast w Hyphae Micro UA Comment Urine Culture Comments MTS Gel Crossmatch 12/22/17 12/22/17 12/22/17 03:55 04:43 04:43 WBC 24.1 H RBC 3.47 L Hgb 10.5 L Hct 29.7 L MCV 85.5 MCH 30.3 MCHC 35.4 RDW 16.0 Plt Count 78 L MPV 10.2 Prelim Diff (Auto) Slide review pending Neut % (Auto) 87.7 H Lymph % (Auto) 10.3 [place] % (Auto) 1.4 Eos % (Auto) 0.1 Baso % (Auto) 0.5 Neut # (Auto) 21.2 H Lymph # (Auto) 2.5 [place] # (Auto) 0.3 Eos # (Auto) 0.0 Baso # (Auto) 0.1 WBC Differential Manual diff final Seg Neuts % (Manual) 68 Band Neuts % (Manual) 16 H Lymphocytes % (Manual) 12 Monocytes % (Manual) 3 Metamyelocytes % (Man) 1 Abs Neuts (Manual) 20.5 H Nucleated RBCs/100 WBC Differential Comment . Toxic Granulation 2+ H Platelet Estimate Low L Platelet Morphology Normal Dimorphic RBCs PT INR APTT Puncture Site Art line Patient Temperature 98.6 O2 Saturation 97 ABG pH 7.50 H ABG pCO2 26 L ABG pO2 182 H ABG HCO3 20 L ABG O2 Content 14.5 ABG Base Excess -3.1 L ABG Methemoglobin 1.3 Hemoglobin 10.3 L Carboxyhemoglobin 1.3 O2 Delivery Device Ventilator Vent Setting 22/450/[id number] Inspired O2 40 Critical Value No Sodium 133 L Potassium 2.9 L* Chloride 100 Carbon Dioxide 20.7 L Anion Gap 12 BUN 30 H Creatinine 0.95 Estimated GFR 62 L POC Glucose Random Glucose 164 H Calcium 6.8 L* Prot Corrected Calcium 7.4 L* Total Bilirubin 1.0 AST 20 ALT 8 L Alkaline Phosphatase 498 H Total Protein 5.9 L Albumin 1.1 L Urine Color Urine Clarity Urine pH Ur Specific [place] Urine Protein Urine Glucose (UA) Urine Ketones Urine Occult Blood Urine Nitrate Urine Bilirubin Urine Urobilinogen Ur Leukocyte Esterase Urine RBC Urine WBC Ur Squamous Epith Cells Urine Bacteria Hyaline Casts Urine Mucus Urine Yeast Ur Yeast w Hyphae Micro UA Comment Urine Culture Comments MTS Gel Crossmatch 12/22/17 12/22/17 12/22/17 07:52 13:16 15:45 WBC RBC Hgb Hct MCV MCH MCHC RDW Plt Count MPV Prelim Diff (Auto) Neut % (Auto) Lymph % (Auto) [place] % (Auto) Eos % (Auto) Baso % (Auto) Neut # (Auto) Lymph # (Auto) [place] # (Auto) Eos # (Auto) Baso # (Auto) WBC Differential Seg Neuts % (Manual) Band Neuts % (Manual) Lymphocytes % (Manual) Monocytes % (Manual) Metamyelocytes % (Man) Abs Neuts (Manual) Nucleated RBCs/100 WBC Differential Comment Toxic Granulation Platelet Estimate Platelet Morphology Dimorphic RBCs PT INR APTT Puncture Site Patient Temperature O2 Saturation ABG pH ABG pCO2 ABG pO2 ABG HCO3 ABG O2 Content ABG Base Excess ABG Methemoglobin Hemoglobin Carboxyhemoglobin O2 Delivery Device Vent Setting Inspired O2 Critical Value Sodium Potassium Chloride Carbon Dioxide Anion Gap BUN Creatinine Estimated GFR POC Glucose 149 H 200 H 217 H Random Glucose Calcium Prot Corrected Calcium Total Bilirubin AST ALT Alkaline Phosphatase Total Protein Albumin Urine Color Urine Clarity Urine pH Ur Specific [place] Urine Protein Urine Glucose (UA) Urine Ketones Urine Occult Blood Urine Nitrate Urine Bilirubin Urine Urobilinogen Ur Leukocyte Esterase Urine RBC Urine WBC Ur Squamous Epith Cells Urine Bacteria Hyaline Casts Urine Mucus Urine Yeast Ur Yeast w Hyphae Micro UA Comment Urine Culture Comments MTS Gel Crossmatch 12/22/17 12/22/17 12/23/17 15:50 20:55 00:28 WBC RBC Hgb Hct MCV MCH MCHC RDW Plt Count MPV Prelim Diff (Auto) Neut % (Auto) Lymph % (Auto) [place] % (Auto) Eos % (Auto) Baso % (Auto) Neut # (Auto) Lymph # (Auto) [place] # (Auto) Eos # (Auto) Baso # (Auto) WBC Differential Seg Neuts % (Manual) Band Neuts % (Manual) Lymphocytes % (Manual) Monocytes % (Manual) Metamyelocytes % (Man) Abs Neuts (Manual) Nucleated RBCs/100 WBC Differential Comment Toxic Granulation Platelet Estimate Platelet Morphology Dimorphic RBCs PT INR APTT Puncture Site Patient Temperature O2 Saturation ABG pH ABG pCO2 ABG pO2 ABG HCO3 ABG O2 Content ABG Base Excess ABG Methemoglobin Hemoglobin Carboxyhemoglobin O2 Delivery Device Vent Setting Inspired O2 Critical Value Sodium Potassium 3.6 Chloride Carbon Dioxide Anion Gap BUN Creatinine Estimated GFR POC Glucose 209 H 163 H Random Glucose Calcium Prot Corrected Calcium Total Bilirubin AST ALT Alkaline Phosphatase Total Protein Albumin Urine Color Urine Clarity Urine pH Ur Specific [place] Urine Protein Urine Glucose (UA) Urine Ketones Urine Occult Blood Urine Nitrate Urine Bilirubin Urine Urobilinogen Ur Leukocyte Esterase Urine RBC Urine WBC Ur Squamous Epith Cells Urine Bacteria Hyaline Casts Urine Mucus Urine Yeast Ur Yeast w Hyphae Micro UA Comment Urine Culture Comments MTS Gel Crossmatch 12/23/17 12/23/17 12/23/17 04:00 05:25 07:38 WBC RBC Hgb Hct MCV MCH MCHC RDW Plt Count MPV Prelim Diff (Auto) Neut % (Auto) Lymph % (Auto) [place] % (Auto) Eos % (Auto) Baso % (Auto) Neut # (Auto) Lymph # (Auto) [place] # (Auto) Eos # (Auto) Baso # (Auto) WBC Differential Seg Neuts % (Manual) Band Neuts % (Manual) Lymphocytes % (Manual) Monocytes % (Manual) Metamyelocytes % (Man) Abs Neuts (Manual) Nucleated RBCs/100 WBC Differential Comment Toxic Granulation Platelet Estimate Platelet Morphology Dimorphic RBCs PT INR APTT Puncture Site [place] Patient Temperature 98.6 O2 Saturation 97 ABG pH 7.53 H* ABG pCO2 24 L* ABG pO2 166 H ABG HCO3 20 L ABG O2 Content 13.9 ABG Base Excess -2.6 L ABG Methemoglobin 1.2 Hemoglobin 9.9 L Carboxyhemoglobin 1.2 O2 Delivery Device Ventilator Vent Setting See comment Inspired O2 40 Critical Value Yes Sodium Potassium Chloride Carbon Dioxide Anion Gap BUN Creatinine Estimated GFR POC Glucose 132 H 176 H Random Glucose Calcium Prot Corrected Calcium Total Bilirubin AST ALT Alkaline Phosphatase Total Protein Albumin Urine Color Urine Clarity Urine pH Ur Specific [place] Urine Protein Urine Glucose (UA) Urine Ketones Urine Occult Blood Urine Nitrate Urine Bilirubin Urine Urobilinogen Ur Leukocyte Esterase Urine RBC Urine WBC Ur Squamous Epith Cells Urine Bacteria Hyaline Casts Urine Mucus Urine Yeast Ur Yeast w Hyphae Micro UA Comment Urine Culture Comments MTS Gel Crossmatch 12/23/17 12/23/17 12/23/17 09:00 09:00 09:00 WBC 22.2 H RBC 3.15 L Hgb 9.6 L Hct 28.2 L MCV 89.6 D MCH 30.4 MCHC 34.0 RDW 16.6 Plt Count 116 L D MPV 10.2 Prelim Diff (Auto) Slide review pending Neut % (Auto) 87.2 H Lymph % (Auto) 9.7 [place] % (Auto) 2.1 Eos % (Auto) 0.6 Baso % (Auto) 0.4 Neut # (Auto) 19.4 H Lymph # (Auto) 2.2 [place] # (Auto) 0.5 Eos # (Auto) 0.1 Baso # (Auto) 0.1 WBC Differential Manual diff final Seg Neuts % (Manual) 72 H Band Neuts % (Manual) 14 H Lymphocytes % (Manual) 10 Monocytes % (Manual) 3 Metamyelocytes % (Man) 1 Abs Neuts (Manual) 19.3 H Nucleated RBCs/100 WBC 1 H Differential Comment . Toxic Granulation 1+ H Platelet Estimate Low L Platelet Morphology Enlarged H Dimorphic RBCs Present H PT 13.1 H INR 1.3 APTT 36.2 H Puncture Site Patient Temperature O2 Saturation ABG pH ABG pCO2 ABG pO2 ABG HCO3 ABG O2 Content ABG Base Excess ABG Methemoglobin Hemoglobin Carboxyhemoglobin O2 Delivery Device Vent Setting Inspired O2 Critical Value Sodium 133 L Potassium 3.2 L Chloride 99 Carbon Dioxide 21.5 Anion Gap 13 BUN 33 H Creatinine 1.03 H Estimated GFR 56 L POC Glucose Random Glucose 172 H Calcium 6.8 L* Prot Corrected Calcium 7.3 L* Total Bilirubin AST ALT Alkaline Phosphatase Total Protein 6.2 L Albumin Urine Color Urine Clarity Urine pH Ur Specific [place] Urine Protein Urine Glucose (UA) Urine Ketones Urine Occult Blood Urine Nitrate Urine Bilirubin Urine Urobilinogen Ur Leukocyte Esterase Urine RBC Urine WBC Ur Squamous Epith Cells Urine Bacteria Hyaline Casts Urine Mucus Urine Yeast Ur Yeast w Hyphae Micro UA Comment Urine Culture Comments MTS Gel Crossmatch 12/23/17 12/23/17 12/24/17 11:34 16:22 00:22 WBC RBC Hgb Hct MCV MCH MCHC RDW Plt Count MPV Prelim Diff (Auto) Neut % (Auto) Lymph % (Auto) [place] % (Auto) Eos % (Auto) Baso % (Auto) Neut # (Auto) Lymph # (Auto) [place] # (Auto) Eos # (Auto) Baso # (Auto) WBC Differential Seg Neuts % (Manual) Band Neuts % (Manual) Lymphocytes % (Manual) Monocytes % (Manual) Metamyelocytes % (Man) Abs Neuts (Manual) Nucleated RBCs/100 WBC Differential Comment Toxic Granulation Platelet Estimate Platelet Morphology Dimorphic RBCs PT INR APTT Puncture Site Patient Temperature O2 Saturation ABG pH ABG pCO2 ABG pO2 ABG HCO3 ABG O2 Content ABG Base Excess ABG Methemoglobin Hemoglobin Carboxyhemoglobin O2 Delivery Device Vent Setting Inspired O2 Critical Value Sodium Potassium Chloride Carbon Dioxide Anion Gap BUN Creatinine Estimated GFR POC Glucose 208 H 192 H 280 H Random Glucose Calcium Prot Corrected Calcium Total Bilirubin AST ALT Alkaline Phosphatase Total Protein Albumin Urine Color Urine Clarity Urine pH Ur Specific [place] Urine Protein Urine Glucose (UA) Urine Ketones Urine Occult Blood Urine Nitrate Urine Bilirubin Urine Urobilinogen Ur Leukocyte Esterase Urine RBC Urine WBC Ur Squamous Epith Cells Urine Bacteria Hyaline Casts Urine Mucus Urine Yeast Ur Yeast w Hyphae Micro UA Comment Urine Culture Comments MTS Gel Crossmatch 12/24/17 12/24/17 12/24/17 00:58 04:25 04:25 WBC 26.2 H RBC 2.78 L Hgb 8.4 L Hct 24.4 L MCV 87.8 MCH 30.1 MCHC 34.3 RDW 16.6 Plt Count 146 L MPV 10.5 Prelim Diff (Auto) Neut % (Auto) 85.5 H Lymph % (Auto) 11.4 [place] % (Auto) 2.1 Eos % (Auto) 0.4 Baso % (Auto) 0.6 Neut # (Auto) 22.4 H Lymph # (Auto) 3.0 [place] # (Auto) 0.5 Eos # (Auto) 0.1 Baso # (Auto) 0.2 WBC Differential . Seg Neuts % (Manual) Band Neuts % (Manual) Lymphocytes % (Manual) Monocytes % (Manual) Metamyelocytes % (Man) Abs Neuts (Manual) Nucleated RBCs/100 WBC Differential Comment Auto diff final Toxic Granulation Platelet Estimate Platelet Morphology Dimorphic RBCs PT INR APTT Puncture Site Patient Temperature O2 Saturation ABG pH ABG pCO2 ABG pO2 ABG HCO3 ABG O2 Content ABG Base Excess ABG Methemoglobin Hemoglobin Carboxyhemoglobin O2 Delivery Device Vent Setting Inspired O2 Critical Value Sodium 135 L Potassium 3.8 3.5 Chloride 103 Carbon Dioxide 20.5 L Anion Gap 12 BUN 36 H Creatinine 1.17 H Estimated GFR 48 L POC Glucose Random Glucose 187 H Calcium 6.9 L* Prot Corrected Calcium 7.6 L Total Bilirubin AST ALT Alkaline Phosphatase Total Protein 5.8 L Albumin Urine Color Urine Clarity Urine pH Ur Specific [place] Urine Protein Urine Glucose (UA) Urine Ketones Urine Occult Blood Urine Nitrate Urine Bilirubin Urine Urobilinogen Ur Leukocyte Esterase Urine RBC Urine WBC Ur Squamous Epith Cells Urine Bacteria Hyaline Casts Urine Mucus Urine Yeast Ur Yeast w Hyphae Micro UA Comment Urine Culture Comments MTS Gel Crossmatch 12/24/17 12/24/17 06:03 08:06 WBC RBC Hgb Hct MCV MCH MCHC RDW Plt Count MPV Prelim Diff (Auto) Neut % (Auto) Lymph % (Auto) [place] % (Auto) Eos % (Auto) Baso % (Auto) Neut # (Auto) Lymph # (Auto) [place] # (Auto) Eos # (Auto) Baso # (Auto) WBC Differential Seg Neuts % (Manual) Band Neuts % (Manual) Lymphocytes % (Manual) Monocytes % (Manual) Metamyelocytes % (Man) Abs Neuts (Manual) Nucleated RBCs/100 WBC Differential Comment Toxic Granulation Platelet Estimate Platelet Morphology Dimorphic RBCs PT INR APTT Puncture Site [place] Patient Temperature 98.6 O2 Saturation 97 ABG pH 7.40 ABG pCO2 30 L ABG pO2 264 H ABG HCO3 18 L ABG O2 Content 12.2 ABG Base Excess -5.9 L ABG Methemoglobin 1.4 Hemoglobin 8.4 L Carboxyhemoglobin 1.0 O2 Delivery Device Ventilator Vent Setting See comment Inspired O2 80 Critical Value No Sodium Potassium Chloride Carbon Dioxide Anion Gap BUN Creatinine Estimated GFR POC Glucose 166 H Random Glucose Calcium Prot Corrected Calcium Total Bilirubin AST ALT Alkaline Phosphatase Total Protein Albumin Urine Color Urine Clarity Urine pH Ur Specific [place] Urine Protein Urine Glucose (UA) Urine Ketones Urine Occult Blood Urine Nitrate Urine Bilirubin Urine Urobilinogen Ur Leukocyte Esterase Urine RBC Urine WBC Ur Squamous Epith Cells Urine Bacteria Hyaline Casts Urine Mucus Urine Yeast Ur Yeast w Hyphae Micro UA Comment Urine Culture Comments MTS Gel Crossmatch Result Diagrams: 12/24/17 04:25 12/24/17 04:25 Microbiology: Microbiology 12/20/17 18:00 Urine Culture - Final Catheterized Urine Talia tropicalis Procedures: 12/15/2017: Endotracheal intubation 12/15/2017: Left subclavian central line placement 12/15/2017: NGT placement 12/15/2017: I&D with wound HEMOVAC placement 12/18/2017: I&D with wound VAC change 12/21/2017: I&D with wound VAC change 12/24/2017: I&D with wound VAC change Assessment and Plan - Disease Oriented Problem List (1) Septic shock with acute organ dysfunction due to anaerobic bacteria (2) Acute respiratory failure (3) Type 2 diabetes mellitus with hyperosmolar nonketotic hyperglycemia (4) Necrotizing fasciitis (5) MARIO (acute kidney injury) (6) Lactic acidosis - Symptom Scale (1) Pain 0-10 Scale: Unable to quantify Pertinent Non-Medical Issues: Psychosocial:Originally from [place]. Currently . Spiritual: No sabianism affiliation. Legal: Per [place] statutes, in the absence of written advanced directives health care proxy decision making will fall to the patient's , Tyrone. Ethical issues impacting care: No known ethical issues impacting care at this time. Important Contacts: Tyrone Middleton, : [phone] Sister Linette Lebron , Prognosis: Patient is critically ill and in septic shock with necrotizing fasciitis secondary to a chronic sacral decubitus. Upon arrival to the ED, the patient was hyperglycemic with a blood glucose of 610, severely dehydrated and in profound shock. She is intubated on mechanical ventilation requiring pressor support status post wide excision of the involved soft tissue. Patient will require further debridement in the future. She remains hemodynamically unstable and critically ill. Very high risk for further complications, continue decline and . Very poor overall prognosis for survival. Code Status: Full Code Plan: * CODE STATUS: FULL CODE * HEALTHCARE DECISION-MAKING: Patient lacks insight and judgment related to her complicated clinical condition. It is unclear if she will regain capacity for medical decision-making. Per [place] statute, in the absence of written advanced directives healthcare proxy decision making falls to the patient's , Tyrone Middleton. He has accepted this role. * GOALS OF CARE: Goals unchanged. Patient's verbalizing aggressive goals stating, "I think she would want everything done to live. Besides, it is too early to know. She was like this the last time she was in the hospital too. " Has been requests we do "everything"we can to keep her alive. is supported by patient's family, Sister Linette and patient's mother to visit patient from [place] in the incoming days. * Palliative care contact information was provided to the patient's and sister. * Case discussed with spiritual services maintenance shop manager Mamadou Feng and palliative care social media marketing analyst Sandhya Henry. * Symptom management: Pain: Multifactoral. Patient has a long history of chronic conditions. She is currently sedated with fentanyl and propofol. Possible contributing factors include severe peripheral arterial disease, recent BKA, peripheral neuropathy, sepsis, necrotizing fasciitis, invasive lines, immobility. No recommendations at this time. We will continue to monitor. Debility/profound physical deconditioning: Patient with uncontrolled diabetes with severe peripheral arterial disease and smoking. Patient has had several hospitalizations/ED visits in the past year. 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 Patient went to live with her family in [place] after her last hospitalization but returned to [place] in the past few weeks. Patient's states she is alone much of the time because he works so much. He states she has a history of non-compliance with her medical regimen and is no longer able to care for herself at home. Will likely required acute rehabilitation if she survives this acute hospitalization. However, long-term plans for this patient are impacted by her psychosocial situation. No payer source or coverage for rehabilitation. * Palliative care will continue to follow this patient throughout her hospitalization to establish trust, assist with symptom management and clarification of medical treatment goals. Time Spent Total Floor Time (mins): 28 (Total time to include review and summarization with medical records, physical exam, telephone call to patient's sister, case discussion with palliative care social media marketing analyst, maintenance shop manager, bedside RN.) >50% Time in Counseling or Coordination of Care: Yes (Total visit time = 28 minutes; > 50% spent counseling/coordinating care) Attestation Attestation: To help prompt me to consider important information that might be impacting today's encounter and assessment, information from prior notes written by myself or my colleagues may have been "brought forward" into today's note. My signature on this note, however, is an attestation that I personally performed the exam, history, and/or decision-making noted today, and, unless otherwise indicated, the interactions with patient, family, and staff as well as the review of records all occurred today. I also attest that the listed assessment and stated plan reflect my best clinical judgment today based on the combination of historical information, prior notes, and today's exam/ interactions. When time spent is documented, it refers only to time spent today by the signer, or if indicated, combined time spent today by collaborating physician/nurse practitioner.
--- NOTE | 2017-12-24 16:17 | P.PNCC ---
Subjective Subjective Remarks/Hospital Course: This 52-year-old woman with long-standing uncontrolled diabetes mellitus and severe peripheral arterial disease related to a long-term heavy smoking history was found down at her home and initial blood glucose was 610. Her lower back and buttocks was exquisitely tender and a mid line stage IV sacral decubitus was oozing purulent material and inflamed and the surrounding soft tissue. White count was not elevated but 90% neutrophils. Temperature 97 degrees. Moderately encephalopathic though conversant. X-rays revealed no fractures in the pelvis but CAT scan demonstrated extensive subcutaneous air emanating in both directions left and right from the mid sacral region. This is clearly necrotizing fasciitis or some other gas-forming infection and the woman is critically ill. She received vancomycin, Zosyn, and clindamycin antibiotic therapy as quickly as possible and was transferred to the ICU for ongoing resuscitation. Because of worsening hemodynamic stability she required intubation and mechanical ventilation followed by central line placement on arrival to the ICU. Insulin drip infusion was started in the emergency department and glucose had declined into the low 400s. She was not in ketoacidosis but lactic acid was elevated at 3.1. General surgery and orthopedic surgery were consulted for recommendations and it was felt that this woman was too unstable to tolerate an operative procedure immediately. We continue her ongoing resuscitation and trial in the ICU at this stage. 12/16: Following aggressive resuscitation yesterday for the treatment of severe hyperglycemia, septic shock, respiratory failure, metabolic acidosis, acute kidney injury, the patient went to the operating room with an extensive wide debridement bilateral gluteal and left thigh soft tissue and muscle. Primary antibiotic coverage at this point is vancomycin, cefepime, clindamycin. The patient started to make urine late yesterday afternoon and has continued to acceptable output since. Lactic acidosis is 2.0 this morning but metabolic acidosis persists despite bicarb drip. She remains on vasopressor support and hemodynamically unstable. 12/17: s/p debridement of large nec fasc wound. remains in shock today. also very hypoglycemic requiring multiple D50 amps overnight. 12/18: back in worsening shock. vasopressor support higher. required 2L crystalloid overnight and additional 1L and 500cc albumin today. ivc completely flat on bedside echo. LVEF hyperdynamic. no pericardial effusion. spoken with gen surg. plan to go back early to eval for worsening necrosis. fio2 also up to 100% and peep 10- hypoxic, likely early ARDS. 12/19: clinically doing better. still in shock on vasopressors, but requirements are lower and lactate cleared. Cr slowly uptrending. SVV still 19% today and appears to be volume responsive. gen surgery ordered 2 units prbc for falling hgb in the setting of blood loss with surgical intervention yesterday. fio2 improving. glycemic control also improving. 12/20: Markedly impaired oxygenation persists. Still requiring elevated end expiratory pressure. Nutritional support continues but she remains catabolic. It will be difficult to keep up with her nutritional needs. 12/21: Continued severe sepsis requiring vasopressor support and mechanical ventilation. Oxygenation remains impaired and smoldering metabolic acidosis persists. Despite hemodynamic instability the patient's only hope for survival is with infection source control through further debridement. Clearly a greatly increased risk however for any procedure. 12/22: Persistent septic shock course requiring vasopressor support and regular debridement. Good antibiotic coverage but she continues to require adjustment of ventilator, hemodynamic support drugs, antibiotics, intravenous fluids. Her nutritional status was quite depleted on arrival and continues to deteriorate despite adjuvant nutrition. 12/23: Patient continues septic course. She has developed venous clot throughout her left internal jugular subclavian and axillary vein system. Not a candidate for full anticoagulation because of need for frequent surgical debridement. We will pull out the catheter today and placing In the right subclavian route. 12/24 remains critically ill and septic remains on Rj-Synephrine at 50 mcg/kg/ min. WBC count increasing 20 6K today. Antibiotics have been changed by ID. Diflucan added for Talia UTI. Plan for OR today per surgery Objective Vital Signs / I&O: Vital Signs 12/23/17 16:15 12/23/17 16:30 12/23/17 16:45 Temperature 98.8 F 98.8 F 98.6 F Pulse Rate 111 H 106 H 108 H Respiratory Rate 16 16 16 Pulse Oximetry 95 95 12/23/17 20:00 12/23/17 20:39 12/24/17 00:00 Temperature 99.0 F 99.0 F Pulse Rate 90 106 H Respiratory Rate 16 17 16 Pulse Oximetry 95 12/24/17 00:13 12/24/17 01:00 12/24/17 03:54 Temperature Pulse Rate 96 H Respiratory Rate 16 16 Pulse Oximetry 95 12/24/17 04:00 12/24/17 07:00 12/24/17 07:15 Temperature 98.2 F Pulse Rate 86 74 68 Respiratory Rate 16 Pulse Oximetry 96 98 12/24/17 07:30 12/24/17 07:45 12/24/17 08:00 Temperature 98.4 F Pulse Rate 68 67 69 Respiratory Rate Pulse Oximetry 98 99 99 12/24/17 08:15 12/24/17 08:30 12/24/17 08:45 Temperature Pulse Rate 67 74 72 Respiratory Rate Pulse Oximetry 99 99 99 12/24/17 09:00 12/24/17 09:15 12/24/17 09:30 Temperature Pulse Rate 80 72 74 Respiratory Rate Pulse Oximetry 99 98 99 12/24/17 09:45 12/24/17 10:00 12/24/17 10:15 Temperature Pulse Rate 75 74 75 Respiratory Rate Pulse Oximetry 99 99 99 12/24/17 10:30 12/24/17 10:45 12/24/17 10:52 Temperature Pulse Rate 74 72 Respiratory Rate 16 Pulse Oximetry 99 99 98 12/24/17 11:00 12/24/17 11:15 12/24/17 11:30 Temperature Pulse Rate 75 85 91 H Respiratory Rate Pulse Oximetry 100 97 95 12/24/17 11:45 12/24/17 12:38 12/24/17 12:45 Temperature Pulse Rate 99 H 104 H Respiratory Rate Pulse Oximetry 94 L 97 96 12/24/17 13:00 Temperature 98.2 F Pulse Rate 101 H Respiratory Rate Pulse Oximetry 90 L Intake & Output 12/23/17 12/24/17 12/24/17 18:59 06:59 18:59 Intake Total 1938 / 1938 1447 / 1447 850 / 850 Output Total 2350 / 2350 1925 / 1925 30 / 30 Balance -412 / -412 -478 / -478 820 / 820 Intake: IV 1864 / 1864 1350 / 1350 600 / 600 D5W/LR Inj 1,000 ML @ 75 mls/hr 850 / 850 1000 / 1000 IV.CONT .[id number] [facility] Rx#: [id number] Neosynephrine Inj 40 MG In D5W 250 / 250 Inj 496 ML @ 40 MCG/MIN 30 mls/ hr IV.CONT TITRATE PRN Rx#: [id number] Diprivan 1000 mg/100 ml Inj 1, 100 / 100 000 mg In 100 ml @ 5 MCG/KG/MIN 1.837 mls/hr IV.CONT TITRATE PRN Rx#:[id number] Pitressin Inj 40 UNIT In NS Inj 25 / 25 50 / 50 98 ML @ 0.04 UNITS/MIN 6 mls/ hr IV.CONT CONT RICARDO Rx#: [id number] Cleocin 900 mg/NS Premix 900 mg 50 / 50 100 / 100 50 / 50 In 50 ml @ 100 mls/hr IV.SIG Q8H RICARDO Rx#:[id number] Cubicin Inj 400 MG In NS Inj 100 / 100 100 / 100 100 ML @ 200 mls/hr IV.SIG Q24H RICARDO Rx#:[id number] Zosyn 4.5 GM Premix 4.5 gm In 200 / 200 200 / 200 100 / 100 100 ml @ 200 mls/hr IV.SIG Q6H RICARDO Rx#:[id number] KCl 40 mEq Premix Inj 40 meq In 200 / 200 100 ml @ 25 mls/hr IV.SIG Q2H PRN Rx#:[id number] fentaNYL 10 mcg/mL Premix Drip 189 / 189 250 / 250 2,500 mcg In 250 ml @ 50 MCG/HR 5 mls/hr IV.SIG TITRATE PRN Rx #:[id number] Tube Feeding 74 / 74 97 / 97 Anesthesia Amount 250 / 250 Output: Stool 50 / 50 150 / 150 Estimated Blood Loss 30 / 30 Urine Amount (Catheter) 450 / 450 525 / 525 1 450 / 450 525 / 525 Gastric Drainage 50 / 50 100 / 100 Nasogastric Tube 50 / 50 100 / 100 Wound Drainage 1800 / 1800 1150 / 1150 Sacrum 1800 / 1800 1150 / 1150 Other: Mode Setting Posterior Sacrum Continuous Continuous Continuous Date of Last Bowel Movement 12/23/17 12/24/17 Result Diagrams: 12/24/17 04:25 12/24/17 04:25 Objective Remarks: General: Ill-appearing middle-aged woman, intubated and lightly sedated Head: Atraumatic,l, edentulous Neck: Supple, orotracheal intubation Lungs: equal chest rise. Scattered rhonchi but acceptable air movement. peep 8. Heart: tachycardic rate and regular rhythm. no JVD. Hypotensive on 50 mcg/kg/ min of Rj-Synephrine Abdomen: Soft, no guarding, no peritoneal irritation. Back: Wound VAC in place over lower lumbar region there is a moderate erythema to the skin over the pelvis and buttocks. Extremities: Warm, adequately perfused, status post below-knee amputation right side, necrotic ulceration over several toes left foot. Generalized edema involving the left arm. Neurological: Intubated and sedated, moves 4 limbs to stimulation. Pupils responsive. Cough, gag intact. Assessment and Plan - Problem List (1) Septic shock with acute organ dysfunction due to anaerobic bacteria Code(s): A41.4 - Sepsis due to anaerobes; R65.21 - Severe sepsis with septic shock Status: Acute (2) Acute respiratory failure Code(s): J96.00 - Acute respiratory failure, unspecified whether with hypoxia or hypercapnia Status: Acute (3) Necrotizing fasciitis Code(s): M72.6 - Necrotizing fasciitis Status: Acute (4) Type 2 diabetes mellitus with hyperosmolar nonketotic hyperglycemia Code(s): E11.01 - Type 2 diabetes mellitus with hyperosmolarity with coma Status: Acute (5) MARIO (acute kidney injury) Code(s): N17.9 - Acute kidney failure, unspecified Status: Acute (6) Lactic acidosis Code(s): E87.2 - Acidosis Status: Acute - Assessment and Plan Plan: Assessment: 52yF with large necrotizing soft tissue infection of the lower back and sacrum complicated by septic shock and multiorgan dysfunction. Continued vasopressors, ivf, and antibiotics. plan for re-evaluation surgically today. remains critically ill in ongoing shock. Plan: Neurological Acute metabolic encephalopathy -Sedation with propofol, Analgesia with fentanyl -Encephalopathy largely due to sepsis and hyperglycemia -RASS goal -2. Cardiovascular Septic Shock- persistent Myocardial dysfunction secondary to septic shock -Rj-Synephrine for goal map > 65 mmHg. - Off milrinone. Flowtrack suggesting CI > 3.5. if she needs additional inotropic therapy may benefit from epinephrine or dobutamine. -2 units of prbc for ongoing blood loss and anemia will help with intravascular volume expansion as well. -Follow acid-base balance closely Respiratory Acute hypoxic and hypercarbic respiratory failure- persistent -Intubation and mechanical ventilation -Bronchodilators - HOB elevated, vent bundle - wean fio2 for goal spo2 > 90% - no weaning of mechanical ventilation until shock improves -Repeat chest x-ray -Reduce PEEP to 8 Endocrinology Diabetes Severe hypoglycemia - hold Levemir - med scale SSI. -Follow potassium and magnesium closely Hematology/Infectious Disease Septic Shock Necrotizing soft tissue infection -Follow white count and platelet count closely. WBC count increasing - Continue daptomycin and Zosyn. ID Stopped clindamycin. - Diflucan for fungal coverage. GI Acute protein calorie malnutrition- severe - prealbumin 5 on 12/18. severely malnourished. - daily bmp, mg, phos -Tube feeds infusing Acute kidney injury -Tristan required for hourly urine output -High risk for further deterioration in renal function -Needs Tristan at this time to protect perineal region HEME -Thrombosis left internal jugular, subclavian, axillary and distal arm veins. -Hold anticoagulation pending surgical debridement. Prophylaxis -Pepcid for GI ulcer prophylaxis -SCDs for DVT prophylaxis -Hold chemical DVT prophylaxis until ongoing surgical decisions regarding further debridement are made Lines: Left subclavian central venous line placed 12/15, discontinued 12/23. Right subclavian central venous line placed 12/23 Overall impression: This woman is critically ill and in septic shock with necrotizing fasciitis emanating from a deep chronic sacral decubitus ulcer. She remains hemodynamically unstable and requiring vasopressor support. Peripheral perfusion and urine output is acceptable. Critical care 35 minutes
--- NOTE | 2017-12-24 16:52 | P.DIET ---
Nutritional Evaluation Type of nutrition evaluation: follow-up Nutrition consult regarding: Tube Feeding Objective - Diagnosis Extensive Subcutaneous air left hip - Objective % IBW: 102 Body Weight Used for Calculations: Actual (64.9 kg) Energy Needs - Lower Range (kCal/kg): 30 Energy Needs - Upper Range (kCal/kg): 35 Lower Limit kCal/kg (kCals): 1,947 Upper Limit kCal/kg (kCals): 2,272 Lower Limit Protein Factor (Grams per Kg): 1.2 Upper Limit Protein Factor (Grams per Kg): 1.6 Lower Protein Needs (Protein): 78 Upper Protein Needs (Protein): 104 Dietitian Reviewed in Medical Record: Curent medications, Intake & Output, Labs , Medical history, Tube feeding, Wound/DTI Diet Order: NPO Objective Comments: PMH includes: Hep C, DM, PAD, HTN, Osteomyelitis, Decubitus Ulcer; here w/Stage IV sacral decubitus s/p debridement of Necrotizing tissue Fasciitis POC Glucose 166, BUN 36, Cr 1.17, GFR 48 Meds Include: Novolog, Levemir, Beneprotein 2-pkt TID, Propofol Assessment Assessment: Pt is at high nutrition risk r/t increased needs for wound healing, clinical status and need for TF'ing. Pts TF currently on hold, pending for procedure. Pt was tolerating Glucerna 1.5 @ 55mL/hr well prior to hold, plan to restart as medically feasible. Propofol provides some additional kcals(1.1 kcal/ml)when running. Labs reviewed. Additional Recs to follow r/t Clinical Course. Recommendations: 1. Plan to restart Glucerna 1.5 @ goal rate 55ml/hr as medically feasible 2. Continue Alek 1-packet BID via feeding tube to assist in wound healing 3. Propofol provides some additional kcals(1.1 kcal/ml)when running 4. Additional Recs to follow r/t Clinical Course Dietitian to Monitor: Lab values, Glucose level, Intake & Output, Tube feeding tolerance, Weight change, Wound/skin status, Medical course
--- NOTE | 2017-12-24 17:46 | MP ---
cc: Ventura Bazzi MD DATE OF OPERATION: 12/24/2017 PREOPERATIVE DIAGNOSIS: Necrotizing fasciitis back, buttock, and posterior thigh. POSTOPERATIVE DIAGNOSIS: Necrotizing fasciitis back, buttock, and posterior thigh. PROCEDURE PERFORMED: Incision, drainage with excisional debridement of back, buttock, thigh, and VAC change. SURGEON: Ventura Bazzi MD MANAGER OPERATIONS: None. ANESTHESIA: GETA. IV FLUIDS: Per the anesthesia sheet. ESTIMATED BLOOD LOSS: 20 mL. DRAINS: Hemovac. COMPLICATIONS: None. WOUND CLASSIFICATION: Dirty, contaminated. SPECIMENS: Fascial tissue with necrotic debris sent for culture. FINDINGS: Overall good healing tissue. Scant areas of fibrinopurulent debris, more concentrated left buttock, thigh area. Good hemostasis. INDICATIONS FOR PROCEDURE: Patient is a 52-year-old female with multiple medical issues, presented with necrotizing fasciitis, septic shock, need for emergency debridement. Patient is here for subsequent VAC changes and further debridement as needed. Planned VAC change. DETAILS OF PROCEDURE: The patient was taken to the operating suite, placed in prone position to prep and drape in the usual sterile fashion after induction of general endotracheal anesthesia. Brief timeout done stating correct patient, procedure, surgical site. We were all in agreement with this. Attention was directed to the VAC, which was removed with a staple removal. The wound was examined and noted to have some fibrinopurulent areas of the left buttock. This was locally debrided through the necrotic fascial tissues and minimal area of subcutaneous tissues. I further noted proximal coccyx on the left side with some necrotic muscle tissue that was further debrided, a 2 x 2 cm area. Hemostasis was obtained. Wound was irrigated thoroughly. VAC sponge was placed deep, left perirectal deep to left buttock thigh area, and tracked under the right lateral skin with a long sponge. The other sponge was cut to size and placed in the wound bed. [place] secured, plastic dressing placed and track pad placed. Wound placed to suction with good suction. No evidence of leaking. The patient tolerated procedure well. No intraoperative complications. All lap and instrument counts were correct at the end of the procedure. Patient remained intubated, taken critical to ICU. MD PAM Cordova/salma , 04:22 PM , 04:32 PM
[2017-12-24] MEDS: Phenylephrine Inj 40 MG in Dextrose 5% in Water Inj 496 ML IV.CONT PRN ×2 (18:14)
[2017-12-25] MEDS: Insulin NovoLIN Regular Correctional Sugar Inj SQ SCH ×6 (00:24→21:25)
[2017-12-25] MEDS: Oral Hygiene Kit OROPHARYNG SCH ×5 (00:24→23:58)
[2017-12-25] MEDS: Dextrose 5%/Lactated Ringer's 1,000 ML IV.CONT SCH ×2 (00:25→14:41)
[2017-12-25] MEDS: Piperacil/Tazo 4.5 GM Premix 4.5 GM/100 ML BAG IV.SIG SCH ×4 (00:30→18:19)
[2017-12-25] MEDS: fentaNYL 10 mcg/mL Premix Drip 2,500 MCG/250 ML BAG IV.SIG PRN ×2 (02:58→14:26)
[2017-12-25 05:45] LABS: ABG Base Excess -4.8 mmol/L (-2-2); ABG PCO2 31 mmHg (38-42); ABG PO2 381 mmHg (61-120)
[2017-12-25 07:11] LABS: Baso # (Auto) 0.2 th/mm3 (0.0-0.2); Baso % (Auto) 0.8 % (0.0-2.0); Eos # (Auto) 0.2 th/mm3 (0.0-0.4); Eos % (Auto) 0.6 % (0.0-4.0); Hematocrit 25.2 % (35.0-46.0); Hemoglobin 8.7 gm/dL (11.6-15.3); Lymph # (Auto) 3.4 th/mm3 (1.0-4.8); Lymph % (Auto) 10.8 % (9.0-44.0); Mean Corpuscular HGB Conc 34.6 % (32.0-36.0); Mean Corpuscular Hemoglobin 31.1 pg (27.0-34.0); Mean Corpuscular Volume 89.9 fL (80.0-100.0); Mean Platelet Volume 10.5 fL (7.0-11.0); Mono # (Auto) 0.6 th/mm3 (0.0-0.9); Neut # (Auto) 26.6 th/mm3 (1.8-7.7); Neut % (Auto) 85.8 % (16.0-70.0); Platelet Count 184 th/mm3 (150-450); Red Cell Distribution Width 16.8 % (11.6-17.2)
[2017-12-25 07:33] LABS: Calcium 6.6 mg/dL (8.5-10.1); Carbon Dioxide 19.7 meq/L (21.0-32.0); Potassium 3.4 meq/L (3.5-5.1)
[2017-12-25 07:46] LABS: Total Protein 6.4 g/dL (6.4-8.2)
[2017-12-25 07:50] LABS: Calcium-Albumin Corrected 6.9 mg/dL (8.5-10.1)
[2017-12-25 08:27] LABS: Lymphocytes 15 % (9-44); Monocytes 2 % (0-8); Myelocytes 1 % (0-0); Platelet Estimate Normal (Normal); Platelet Morphology Normal (Normal)
[2017-12-25 08:28] LABS: Toxic Granulation 1+; Toxic Vacuolation Present
[2017-12-25] MEDS: Enoxaparin Inj 30 MG/0.3 ML Syringe SQ SCH (08:35)
[2017-12-25] MEDS: Senna/Docusate Sodium 8.6/50 MG Tablet PO SCH ×2 (08:36→20:39)
[2017-12-25] MEDS: Famotidine PF Inj 20 MG/2 ML Vial IV.PUSH SCH ×2 (08:36→20:51)
[2017-12-25] MEDS: Chlorhexidine 0.12% Oral Kit 15 ML UDC OROPHARYNG SCH ×2 (08:37→20:51)
[2017-12-25] MEDS ORDERED: Calcium Gluconate Inj 1 GM in Sodium Chlor 0.9% Inj 100 ML IV.SIG ONE (09:00)
[2017-12-25] MEDS: Phenylephrine Inj 40 MG in Dextrose 5% in Water Inj 496 ML IV.CONT PRN ×4 (11:17→23:59)
--- NOTE | 2017-12-25 11:26 | P.PNID ---
Subjective Remarks: Discussed with RN. Sedated. On the ventilator. Currently on vasopressin and norepinephrine. blood pressure is 100. Afebrile. WBC is higher. Post debridement 12/18/2017, 12/24/2017. This is a 52-year-old white female who was brought to the emergency department after she fell at home. The patient was noted to have profound weakness. She was evaluated in the emergency department and at that time had normal temperature and white blood cell count was also normal. She underwent CT scan of the abdomen and pelvis that showed extensive subcutaneous and soft tissue gas bilaterally with the left greater than right, most severe in the left gluteal region and extending into the proximal posterior thigh soft tissue and air-fluid dissecting through the gluteal musculature. The patient has a history of diabetes mellitus. Antibiotics: Diflucan Daptomycin zosyn Allergies/Adverse Reactions: Allergies No Known Allergies Allergy (Verified 12/15/17 07:54) Objective Vital Signs 12/24/17 11:15 12/24/17 11:30 12/24/17 11:45 Temperature Pulse Rate 85 91 H 99 H Respiratory Rate Blood Pressure Pulse Oximetry 97 95 94 L 12/24/17 12:38 12/24/17 12:45 12/24/17 13:00 Temperature 98.2 F Pulse Rate 104 H 101 H Respiratory Rate Blood Pressure Pulse Oximetry 97 96 90 L 12/24/17 13:15 12/24/17 13:30 12/24/17 13:45 Temperature Pulse Rate 105 H 101 H 86 Respiratory Rate Blood Pressure Pulse Oximetry 95 95 94 L 12/24/17 14:00 12/24/17 14:15 12/24/17 14:30 Temperature Pulse Rate 83 79 76 Respiratory Rate Blood Pressure Pulse Oximetry 93 L 91 L 92 L 12/24/17 14:45 12/24/17 15:00 12/24/17 15:15 Temperature Pulse Rate 74 73 75 Respiratory Rate Blood Pressure Pulse Oximetry 92 L 92 L 92 L 12/24/17 15:30 12/24/17 15:45 12/24/17 16:00 Temperature Pulse Rate 79 76 84 Respiratory Rate Blood Pressure Pulse Oximetry 93 L 93 L 95 12/24/17 16:15 12/24/17 16:30 12/24/17 16:45 Temperature 98.5 F Pulse Rate 82 85 83 Respiratory Rate Blood Pressure Pulse Oximetry 92 L 95 93 L 12/24/17 17:00 12/24/17 17:15 12/24/17 17:30 Temperature 99.0 F Pulse Rate 82 81 81 Respiratory Rate Blood Pressure Pulse Oximetry 92 L 94 L 94 L 12/24/17 17:45 12/24/17 18:00 12/24/17 18:15 Temperature Pulse Rate 92 H 85 81 Respiratory Rate Blood Pressure Pulse Oximetry 95 93 L 95 12/24/17 18:30 12/24/17 18:45 12/24/17 19:00 Temperature Pulse Rate 77 76 74 Respiratory Rate Blood Pressure Pulse Oximetry 95 95 94 L 12/24/17 19:15 12/24/17 19:30 12/24/17 19:45 Temperature Pulse Rate 82 73 73 Respiratory Rate Blood Pressure Pulse Oximetry 92 L 93 L 93 L 12/24/17 20:00 12/24/17 20:15 12/24/17 20:30 Temperature Pulse Rate 73 80 73 Respiratory Rate Blood Pressure Pulse Oximetry 93 L 94 L 95 12/24/17 20:45 12/24/17 21:00 12/24/17 21:15 Temperature Pulse Rate 72 80 85 Respiratory Rate 16 Blood Pressure Pulse Oximetry 95 95 97 12/24/17 21:30 12/24/17 21:45 12/24/17 22:00 Temperature Pulse Rate 90 94 H 102 H Respiratory Rate Blood Pressure Pulse Oximetry 93 L 96 95 12/24/17 22:15 12/24/17 22:30 12/24/17 22:45 Temperature 99.0 F Pulse Rate 100 H 99 H 102 H Respiratory Rate 16 Blood Pressure Pulse Oximetry 94 L 93 L 92 L 12/24/17 23:00 12/24/17 23:15 12/24/17 23:30 Temperature Pulse Rate 96 H 96 H 93 H Respiratory Rate Blood Pressure Pulse Oximetry 93 L 93 L 93 L 12/24/17 23:45 12/25/17 00:00 12/25/17 00:15 Temperature 99.0 F Pulse Rate 91 H 89 87 Respiratory Rate 16 16 Blood Pressure Pulse Oximetry 94 L 94 L 95 12/25/17 00:30 12/25/17 00:45 12/25/17 01:00 Temperature Pulse Rate 90 93 H 84 Respiratory Rate Blood Pressure Pulse Oximetry 96 97 93 L 12/25/17 01:15 12/25/17 01:30 12/25/17 01:45 Temperature Pulse Rate 81 83 79 Respiratory Rate Blood Pressure Pulse Oximetry 93 L 97 96 12/25/17 02:00 12/25/17 02:15 12/25/17 02:30 Temperature Pulse Rate 77 79 79 Respiratory Rate Blood Pressure Pulse Oximetry 96 95 94 L 12/25/17 02:45 12/25/17 03:00 12/25/17 03:15 Temperature Pulse Rate 78 84 98 H Respiratory Rate Blood Pressure Pulse Oximetry 96 96 96 12/25/17 03:30 12/25/17 03:45 12/25/17 04:00 Temperature Pulse Rate 97 H 89 84 Respiratory Rate Blood Pressure Pulse Oximetry 94 L 93 L 94 L 12/25/17 04:09 12/25/17 04:15 12/25/17 04:30 Temperature Pulse Rate 93 H 88 Respiratory Rate 16 Blood Pressure Pulse Oximetry 94 L 93 L 95 12/25/17 04:45 12/25/17 05:00 12/25/17 05:15 Temperature Pulse Rate 91 H 87 81 Respiratory Rate Blood Pressure Pulse Oximetry 95 93 L 94 L 12/25/17 05:30 12/25/17 05:45 12/25/17 06:00 Temperature Pulse Rate 87 99 H 105 H Respiratory Rate Blood Pressure Pulse Oximetry 94 L 95 97 12/25/17 06:15 12/25/17 06:30 12/25/17 06:45 Temperature 99.1 F Pulse Rate 102 H 105 H 102 H Respiratory Rate 16 Blood Pressure Pulse Oximetry 96 96 96 12/25/17 07:00 12/25/17 07:15 12/25/17 07:30 Temperature 98.9 F Pulse Rate 105 H 102 H 96 H Respiratory Rate Blood Pressure Pulse Oximetry 95 95 95 12/25/17 07:31 12/25/17 07:45 12/25/17 08:00 Temperature Pulse Rate 92 H 91 H Respiratory Rate 16 Blood Pressure Pulse Oximetry 100 97 97 12/25/17 08:15 12/25/17 08:30 12/25/17 08:40 Temperature Pulse Rate 100 H 95 H 98 H Respiratory Rate Blood Pressure 134/53 L Pulse Oximetry 98 95 96 12/25/17 08:45 12/25/17 09:00 12/25/17 09:15 Temperature Pulse Rate 101 H 82 74 Respiratory Rate Blood Pressure Pulse Oximetry 96 97 97 Intake & Output 12/24/17 12/25/17 12/25/17 18:59 06:59 18:59 Intake Total 2451.5 / 2451.5 891.5 / 891.5 Output Total 1380 / 1380 650 / 650 Balance 1071.5 / 1071.5 241.5 / 241.5 Weight 79.6 kg Intake: IV 2201.5 / 2201.5 700.5 / 700.5 D5W/LR Inj 1,000 ML @ 75 mls/hr 722 / 722 278 / 278 IV.CONT .[id number] RICARDO Rx#: [id number] Neosynephrine Inj 40 MG In D5W 500 / 500 Inj 496 ML @ 40 MCG/MIN 30 mls/ hr IV.CONT TITRATE PRN Rx#: [id number] Diprivan 1000 mg/100 ml Inj 1, 100 / 100 52 / 52 000 mg In 100 ml @ 5 MCG/KG/MIN 1.837 mls/hr IV.CONT TITRATE PRN Rx#:[id number] Pitressin Inj 40 UNIT In NS Inj 79.5 / 79.5 20.5 / 20.5 98 ML @ 0.04 UNITS/MIN 6 mls/ hr IV.CONT CONT RICARDO Rx#: [id number] Cleocin 900 mg/NS Premix 900 mg 50 / 50 In 50 ml @ 100 mls/hr IV.SIG Q8H RICARDO Rx#:[id number] Cubicin Inj 400 MG In NS Inj 100 / 100 100 ML @ 200 mls/hr IV.SIG Q24H RICARDO Rx#:[id number] Diflucan 400 mg Premix Bag 200 200 / 200 ML @ 100 mls/hr IV.SIG Q24H RICARDO Rx#:[id number] Zosyn 4.5 GM Premix 4.5 gm In 200 / 200 100 / 100 100 ml @ 200 mls/hr IV.SIG Q6H RICARDO Rx#:[id number] fentaNYL 10 mcg/mL Premix Drip 250 / 250 250 / 250 2,500 mcg In 250 ml @ 50 MCG/HR 5 mls/hr IV.SIG TITRATE PRN Rx #:[id number] Tube Feeding 191 / 191 Anesthesia Amount 250 / 250 Output: Stool 0 / 0 Estimated Blood Loss 30 / 30 Urine Amount (Catheter) 900 / 900 350 / 350 1 900 / 900 350 / 350 Wound Drainage 300 / 300 Sacrum 300 / 300 Wound Vac Amount 450 / 450 Posterior Sacrum 450 / 450 Other: Mode Setting Posterior Sacrum Continuous Continuous Continuous Date of Last Bowel Movement 12/25/17 12/20/17 18:00 Catheterized Urine Urine Culture - Final [facility] - Hematology Results 12/23/17 12/24/17 12/25/17 09:00 04:25 06:30 WBC 22.2 H 26.2 H 31.0 H RBC 3.15 L 2.78 L 2.80 L Hgb 9.6 L 8.4 L 8.7 L Hct 28.2 L 24.4 L 25.2 L MCV 89.6 D 87.8 89.9 MCH 30.4 30.1 31.1 MCHC 34.0 34.3 34.6 RDW 16.6 16.6 16.8 Plt Count 116 L D 146 L 184 MPV 10.2 10.5 10.5 Prelim Diff (Auto) Slide review pending Slide review pending Neut % (Auto) 87.2 H 85.5 H 85.8 H Lymph % (Auto) 9.7 11.4 10.8 [place] % (Auto) 2.1 2.1 2.0 Eos % (Auto) 0.6 0.4 0.6 Baso % (Auto) 0.4 0.6 0.8 Neut # (Auto) 19.4 H 22.4 H 26.6 H Lymph # (Auto) 2.2 3.0 3.4 [place] # (Auto) 0.5 0.5 0.6 Eos # (Auto) 0.1 0.1 0.2 Baso # (Auto) 0.1 0.2 0.2 WBC Differential Manual diff final . Manual diff final Seg Neuts % (Manual) 72 H 65 Band Neuts % (Manual) 14 H 17 H Lymphocytes % (Manual) 10 15 Monocytes % (Manual) 3 2 Metamyelocytes % (Man) 1 Myelocytes % (Man) 1 H Abs Neuts (Manual) 19.3 H 25.7 H Nucleated RBCs/100 WBC 1 H Differential Comment . Auto diff final . Toxic Granulation 1+ H 1+ H Toxic Vacuolation Present H Platelet Estimate Low L Normal Platelet Morphology Enlarged H Normal Dimorphic RBCs Present H Lab - Chemistry Results 12/23/17 12/23/17 12/23/17 09:00 11:34 16:22 Sodium 133 L Potassium 3.2 L Chloride 99 Carbon Dioxide 21.5 Anion Gap 13 BUN 33 H Creatinine 1.03 H Estimated GFR 56 L POC Glucose 208 H 192 H Random Glucose 172 H Calcium 6.8 L* Prot Corrected Calcium 7.3 L* Total Protein 6.2 L 12/24/17 12/24/17 12/24/17 00:22 00:58 04:25 Sodium 135 L Potassium 3.8 3.5 Chloride 103 Carbon Dioxide 20.5 L Anion Gap 12 BUN 36 H Creatinine 1.17 H Estimated GFR 48 L POC Glucose 280 H Random Glucose 187 H Calcium 6.9 L* Prot Corrected Calcium 7.6 L Total Protein 5.8 L 12/24/17 12/24/17 12/24/17 08:06 15:55 20:11 Sodium Potassium Chloride Carbon Dioxide Anion Gap BUN Creatinine Estimated GFR POC Glucose 166 H 152 H 160 H Random Glucose Calcium Prot Corrected Calcium Total Protein 12/25/17 12/25/17 12/25/17 00:10 06:30 08:25 Sodium 133 L Potassium 3.4 L Chloride 102 Carbon Dioxide 19.7 L Anion Gap 11 BUN 32 H Creatinine 1.11 H Estimated GFR 51 L POC Glucose 148 H 266 H Random Glucose 209 H Calcium 6.6 L* Prot Corrected Calcium 6.9 L* Total Protein 6.4 D Imaging: ITS Impressions Femur X-Ray 12/15/17 07:05 CONCLUSION: No fracture is identified. There is extensive soft tissue air in the right gluteal region and extending into the proximal and mid posterior thigh. The soft tissue air suggests an open wound. Pelvis X-Ray 12/15/17 07:05 CONCLUSION: No fracture is identified. However, there is extensive soft tissue air in the left gluteal region and left proximal thigh. Pelvis CT 12/15/17 07:52 CONCLUSION: 1. No fracture is identified. 2. Extensive subcutaneous and soft tissue gas bilaterally, left greater than right. It is most severe in the left gluteal region and extends into the proximal posterior thigh. The soft tissue air dissects through the gluteal musculature. There is adjacent subcutaneous edema. Foot X-Ray 12/18/17 00:00 CONCLUSION: Remote small avulsion fracture at the fifth toe. No acute bony abnormality. Venous Doppler Study 12/22/17 00:00 CONCLUSION: Extensive deep vein thrombosis of the left upper extremity. Chest X-Ray 12/24/17 02:15 CONCLUSION: Satisfactory tube and line positioning. Grossly stable aeration Physical Exam: PHYSICAL EXAMINATION: GENERAL: Sedated. HEENT: No icterus. Oral mucosa is moist. NECK: Supple. No adenopathy or swelling. LUNGS: Bilateral rhonchi. HEART: irregular S1 and S2. 1-2/6 systolic murmur at the left sternal border. ABDOMEN: Bowel sounds present, soft. BACK: Surgical wound post debridement across the lower back, buttock and thigh. Vac in place. EXTREMITIES: No clubbing, no cyanosis. 2+ edema. Left upper extremity has 3+ edema. abrasion with dry necrotic changes at left dorsal toes 2-4. SKIN: No diffuse rash. Scattered ecchymotic lesions. NEUROLOGIC: Unable to assess. PSYCHIATRIC: Unable to assess. Assessment and Plan - Plan IMPRESSION: 1. Necrotizing fasciitis of the back, buttock and thigh. New wound culture pending. 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 2. Septic shock. 3. Acute respiratory failure. 4. Chronic kidney disease. 5. Leukocytosis. WBC remains elevated. 6. Left upper extremity DVT. Remains critically ill. RECOMMENDATIONS: 1. Monitor culture of wound. 2. 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 3. Continue Zosyn. 4. Continue Diflucan for fungal coverage. 5. Monitor the WBC. 6. Monitor clinical status.
[2017-12-25] MEDS: DAPTOmycin Inj 400 MG in Sodium Chlor 0.9% Inj 100 ML IV.SIG SCH (14:10)
--- NOTE | 2017-12-25 16:21 | P.PNPAL ---
Palliative care follow-up for family support, clarifications of goals of care. Visited patient multiple times throughout the day, no family at bedside. Telephone call to patient's [place] and . Left message on voicemail. Case discussed with spiritual services director food safety Mamadou Ashley and bedside RN. Patient's clinical condition unchanged at this time, remains critically ill. Palliative care will continue to follow-up for further clarifications of goals of care as patient's clinical course continues to evolve. Sabiha Peterson, MSN, [facility]- Palliative care nurse practitioner
--- NOTE | 2017-12-25 17:17 | P.PNCC ---
Subjective Subjective Remarks/Hospital Course: This 52-year-old woman with long-standing uncontrolled diabetes mellitus and severe peripheral arterial disease related to a long-term heavy smoking history was found down at her home and initial blood glucose was 610. Her lower back and buttocks was exquisitely tender and a mid line stage IV sacral decubitus was oozing purulent material and inflamed and the surrounding soft tissue. White count was not elevated but 90% neutrophils. Temperature 97 degrees. Moderately encephalopathic though conversant. X-rays revealed no fractures in the pelvis but CAT scan demonstrated extensive subcutaneous air emanating in both directions left and right from the mid sacral region. This is clearly necrotizing fasciitis or some other gas-forming infection and the woman is critically ill. She received vancomycin, Zosyn, and clindamycin antibiotic therapy as quickly as possible and was transferred to the ICU for ongoing resuscitation. Because of worsening hemodynamic stability she required intubation and mechanical ventilation followed by central line placement on arrival to the ICU. Insulin drip infusion was started in the emergency department and glucose had declined into the low 400s. She was not in ketoacidosis but lactic acid was elevated at 3.1. General surgery and orthopedic surgery were consulted for recommendations and it was felt that this woman was too unstable to tolerate an operative procedure immediately. We continue her ongoing resuscitation and trial in the ICU at this stage. 12/16: Following aggressive resuscitation yesterday for the treatment of severe hyperglycemia, septic shock, respiratory failure, metabolic acidosis, acute kidney injury, the patient went to the operating room with an extensive wide debridement bilateral gluteal and left thigh soft tissue and muscle. Primary antibiotic coverage at this point is vancomycin, cefepime, clindamycin. The patient started to make urine late yesterday afternoon and has continued to acceptable output since. Lactic acidosis is 2.0 this morning but metabolic acidosis persists despite bicarb drip. She remains on vasopressor support and hemodynamically unstable. 12/17: s/p debridement of large nec fasc wound. remains in shock today. also very hypoglycemic requiring multiple D50 amps overnight. 12/18: back in worsening shock. vasopressor support higher. required 2L crystalloid overnight and additional 1L and 500cc albumin today. ivc completely flat on bedside echo. LVEF hyperdynamic. no pericardial effusion. spoken with gen surg. plan to go back early to eval for worsening necrosis. fio2 also up to 100% and peep 10- hypoxic, likely early ARDS. 12/19: clinically doing better. still in shock on vasopressors, but requirements are lower and lactate cleared. Cr slowly uptrending. SVV still 19% today and appears to be volume responsive. gen surgery ordered 2 units prbc for falling hgb in the setting of blood loss with surgical intervention yesterday. fio2 improving. glycemic control also improving. 12/20: Markedly impaired oxygenation persists. Still requiring elevated end expiratory pressure. Nutritional support continues but she remains catabolic. It will be difficult to keep up with her nutritional needs. 12/21: Continued severe sepsis requiring vasopressor support and mechanical ventilation. Oxygenation remains impaired and smoldering metabolic acidosis persists. Despite hemodynamic instability the patient's only hope for survival is with infection source control through further debridement. Clearly a greatly increased risk however for any procedure. 12/22: Persistent septic shock course requiring vasopressor support and regular debridement. Good antibiotic coverage but she continues to require adjustment of ventilator, hemodynamic support drugs, antibiotics, intravenous fluids. Her nutritional status was quite depleted on arrival and continues to deteriorate despite adjuvant nutrition. 12/23: Patient continues septic course. She has developed venous clot throughout her left internal jugular subclavian and axillary vein system. Not a candidate for full anticoagulation because of need for frequent surgical debridement. We will pull out the catheter today and placing In the right subclavian route. 12/24 remains critically ill and septic remains on Rj-Synephrine at 50 mcg/kg/ min. WBC count increasing 20 6K today. Antibiotics have been changed by ID. Diflucan added for Talia UTI. Plan for OR today per surgery 12/25: Went to OR yesterday, s/p Incision, drainage with excisional debridement of back, buttock, thigh, and VAC change. Main septic White count increasing 31, 000 today, remains on pressors vasopressin and Rj-Synephrine. Objective Vital Signs / I&O: Vital Signs 12/24/17 17:15 12/24/17 17:30 12/24/17 17:45 Temperature 99.0 F Pulse Rate 81 81 92 H Respiratory Rate Blood Pressure Pulse Oximetry 94 L 94 L 95 12/24/17 18:00 12/24/17 18:15 12/24/17 18:30 Temperature Pulse Rate 85 81 77 Respiratory Rate Blood Pressure Pulse Oximetry 93 L 95 95 12/24/17 18:45 12/24/17 19:00 12/24/17 19:15 Temperature Pulse Rate 76 74 82 Respiratory Rate Blood Pressure Pulse Oximetry 95 94 L 92 L 12/24/17 19:30 12/24/17 19:45 12/24/17 20:00 Temperature Pulse Rate 73 73 73 Respiratory Rate Blood Pressure Pulse Oximetry 93 L 93 L 93 L 12/24/17 20:15 12/24/17 20:30 12/24/17 20:45 Temperature Pulse Rate 80 73 72 Respiratory Rate Blood Pressure Pulse Oximetry 94 L 95 95 12/24/17 21:00 12/24/17 21:15 12/24/17 21:30 Temperature Pulse Rate 80 85 90 Respiratory Rate 16 Blood Pressure Pulse Oximetry 95 97 93 L 12/24/17 21:45 12/24/17 22:00 12/24/17 22:15 Temperature Pulse Rate 94 H 102 H 100 H Respiratory Rate Blood Pressure Pulse Oximetry 96 95 94 L 12/24/17 22:30 12/24/17 22:45 12/24/17 23:00 Temperature 99.0 F Pulse Rate 99 H 102 H 96 H Respiratory Rate 16 Blood Pressure Pulse Oximetry 93 L 92 L 93 L 12/24/17 23:15 12/24/17 23:30 12/24/17 23:45 Temperature Pulse Rate 96 H 93 H 91 H Respiratory Rate Blood Pressure Pulse Oximetry 93 L 93 L 94 L 12/25/17 00:00 12/25/17 00:15 12/25/17 00:30 Temperature 99.0 F Pulse Rate 89 87 90 Respiratory Rate 16 16 Blood Pressure Pulse Oximetry 94 L 95 96 12/25/17 00:45 12/25/17 01:00 12/25/17 01:15 Temperature Pulse Rate 93 H 84 81 Respiratory Rate Blood Pressure Pulse Oximetry 97 93 L 93 L 12/25/17 01:30 12/25/17 01:45 12/25/17 02:00 Temperature Pulse Rate 83 79 77 Respiratory Rate Blood Pressure Pulse Oximetry 97 96 96 12/25/17 02:15 12/25/17 02:30 12/25/17 02:45 Temperature Pulse Rate 79 79 78 Respiratory Rate Blood Pressure Pulse Oximetry 95 94 L 96 12/25/17 03:00 12/25/17 03:15 12/25/17 03:30 Temperature Pulse Rate 84 98 H 97 H Respiratory Rate Blood Pressure Pulse Oximetry 96 96 94 L 12/25/17 03:45 12/25/17 04:00 12/25/17 04:09 Temperature Pulse Rate 89 84 Respiratory Rate 16 Blood Pressure Pulse Oximetry 93 L 94 L 94 L 12/25/17 04:15 12/25/17 04:30 12/25/17 04:45 Temperature Pulse Rate 93 H 88 91 H Respiratory Rate Blood Pressure Pulse Oximetry 93 L 95 95 12/25/17 05:00 12/25/17 05:15 12/25/17 05:30 Temperature Pulse Rate 87 81 87 Respiratory Rate Blood Pressure Pulse Oximetry 93 L 94 L 94 L 12/25/17 05:45 12/25/17 06:00 12/25/17 06:15 Temperature Pulse Rate 99 H 105 H 102 H Respiratory Rate Blood Pressure Pulse Oximetry 95 97 96 12/25/17 06:30 12/25/17 06:45 12/25/17 07:00 Temperature 99.1 F 98.9 F Pulse Rate 105 H 102 H 105 H Respiratory Rate 16 Blood Pressure Pulse Oximetry 96 96 95 12/25/17 07:15 12/25/17 07:30 12/25/17 07:31 Temperature Pulse Rate 102 H 96 H Respiratory Rate 16 Blood Pressure Pulse Oximetry 95 95 100 12/25/17 07:45 12/25/17 08:00 12/25/17 08:15 Temperature Pulse Rate 92 H 91 H 100 H Respiratory Rate Blood Pressure Pulse Oximetry 97 97 98 12/25/17 08:30 12/25/17 08:40 12/25/17 08:45 Temperature Pulse Rate 95 H 98 H 101 H Respiratory Rate Blood Pressure 134/53 L Pulse Oximetry 95 96 96 12/25/17 09:00 12/25/17 09:15 12/25/17 09:30 Temperature Pulse Rate 82 74 72 Respiratory Rate Blood Pressure Pulse Oximetry 97 97 97 12/25/17 09:45 12/25/17 10:00 12/25/17 10:15 Temperature Pulse Rate 70 69 69 Respiratory Rate Blood Pressure Pulse Oximetry 97 97 97 12/25/17 10:30 12/25/17 10:45 12/25/17 11:00 Temperature Pulse Rate 69 68 68 Respiratory Rate Blood Pressure Pulse Oximetry 97 97 97 12/25/17 11:10 12/25/17 11:15 11/06/18 11:30 Temperature Pulse Rate 72 70 Respiratory Rate 16 Blood Pressure 113/63 Pulse Oximetry 97 95 95 12/25/17 11:45 12/25/17 12:00 12/25/17 12:15 Temperature 97.7 F Pulse Rate 67 68 68 Respiratory Rate Blood Pressure Pulse Oximetry 97 97 97 12/25/17 12:30 12/25/17 12:45 12/25/17 13:00 Temperature Pulse Rate 66 68 69 Respiratory Rate Blood Pressure Pulse Oximetry 97 97 97 12/25/17 13:15 12/25/17 13:30 12/25/17 13:45 Temperature Pulse Rate 65 69 69 Respiratory Rate Blood Pressure Pulse Oximetry 97 97 96 12/25/17 14:00 12/25/17 14:15 12/25/17 14:30 Temperature Pulse Rate 75 89 78 Respiratory Rate Blood Pressure Pulse Oximetry 96 96 96 12/25/17 14:45 12/25/17 15:00 12/25/17 15:15 Temperature Pulse Rate 76 73 68 Respiratory Rate Blood Pressure Pulse Oximetry 97 97 97 12/25/17 15:30 12/25/17 15:45 12/25/17 16:00 Temperature 98.6 F Pulse Rate 66 66 69 Respiratory Rate Blood Pressure Pulse Oximetry 97 97 97 12/25/17 16:06 12/25/17 16:15 12/25/17 16:30 Temperature Pulse Rate 81 90 Respiratory Rate 16 Blood Pressure Pulse Oximetry 96 96 94 L Intake & Output 12/24/17 12/25/17 12/25/17 18:59 06:59 18:59 Intake Total 2451.5 / 2451.5 891.5 / 891.5 235 / 235 Output Total 1380 / 1380 650 / 650 Balance 1071.5 / 1071.5 241.5 / 241.5 235 / 235 Weight 79.6 kg Intake: IV 2201.5 / 2201.5 700.5 / 700.5 235 / 2356 D5W/LR Inj 1,000 ML @ 75 mls/hr 722 / 722 278 / 278 1000 / 1000 IV.CONT .[id number] [facility] Rx#: [id number] Neosynephrine Inj 40 MG In D5W 500 / 500 496 / 496 Inj 496 ML @ 40 MCG/MIN 30 mls/ hr IV.CONT TITRATE PRN Rx#: [id number] Diprivan 1000 mg/100 ml Inj 1, 100 / 100 52 / 52 000 mg In 100 ml @ 5 MCG/KG/MIN 1.837 mls/hr IV.CONT TITRATE PRN Rx#:[id number] Pitressin Inj 40 UNIT In NS Inj 79.5 / 79.5 20.5 / 20.5 200 / 200 98 ML @ 0.04 UNITS/MIN 6 mls/ hr IV.CONT CONT [facility] Rx#: [id number] Calcium Gluconate Inj 1 GM In 110 / 110 NS Inj 100 ML @ 110 mls/hr IV. SIG ONCE ONE Rx#:[id number] Cleocin 900 mg/NS Premix 900 mg 50 / 50 In 50 ml @ 100 mls/hr IV.SIG Q8H [facility] Rx#:[id number] Cubicin Inj 400 MG In NS Inj 100 / 100 100 / 100 100 ML @ 200 mls/hr IV.SIG Q24H [facility] Rx#:[id number] Diflucan 400 mg Premix Bag 200 200 / 200 ML @ 100 mls/hr IV.SIG Q24H [facility] Rx#:[id number] Zosyn 4.5 GM Premix 4.5 gm In 200 / 200 100 / 100 200 / 200 100 ml @ 200 mls/hr IV.SIG Q6H [facility] Rx#:[id number] fentaNYL 10 mcg/mL Premix Drip 250 / 250 250 / 250 250 / 250 2,500 mcg In 250 ml @ 50 MCG/HR 5 mls/hr IV.SIG TITRATE PRN Rx #:[id number] Tube Feeding 191 / 191 Anesthesia Amount 250 / 250 Output: Stool 0 / 0 Estimated Blood Loss 30 / 30 Urine Amount (Catheter) 900 / 900 350 / 350 1 900 / 900 350 / 350 Wound Drainage 300 / 300 Sacrum 300 / 300 Wound Vac Amount 450 / 450 Posterior Sacrum 450 / 450 Other: Mode Setting Posterior Sacrum Continuous Continuous Continuous Date of Last Bowel Movement 12/25/17 Result Diagrams: 12/25/17 06:30 12/25/17 06:30 Objective Remarks: General: Ill-appearing middle-aged woman, intubated and lightly sedated Head: Atraumatic, edentulous Neck: Supple, orotracheal intubation Lungs: equal chest rise. Scattered rhonchi but acceptable air movement. peep 8. Heart: tachycardic rate and regular rhythm. no JVD. Hypotensive on 60 mcg/kg/ min of Rj-Synephrine, and vasopressin Abdomen: Soft, no guarding, no peritoneal irritation. Back: Wound VAC in place over lower lumbar region there is a moderate erythema to the skin over the pelvis and buttocks. Extremities: Warm, adequately perfused, status post below-knee amputation right side, necrotic ulceration over several toes left foot. Generalized edema involving the left arm. Neurological: Intubated and sedated, moves 4 limbs to stimulation. Pupils responsive. Cough, gag intact. Assessment and Plan - Problem List (1) Septic shock with acute organ dysfunction due to anaerobic bacteria Code(s): A41.4 - Sepsis due to anaerobes; R65.21 - Severe sepsis with septic shock Status: Acute (2) Acute respiratory failure Code(s): J96.00 - Acute respiratory failure, unspecified whether with hypoxia or hypercapnia Status: Acute (3) Necrotizing fasciitis Code(s): M72.6 - Necrotizing fasciitis Status: Acute (4) Type 2 diabetes mellitus with hyperosmolar nonketotic hyperglycemia Code(s): E11.01 - Type 2 diabetes mellitus with hyperosmolarity with coma Status: Acute (5) MARIO (acute kidney injury) Code(s): N17.9 - Acute kidney failure, unspecified Status: Acute (6) Lactic acidosis Code(s): E87.2 - Acidosis Status: Acute - Assessment and Plan Plan: Assessment: 52yF with large necrotizing soft tissue infection of the lower back and sacrum complicated by septic shock and multiorgan dysfunction. Continued vasopressors, ivf, and antibiotics. plan for re-evaluation surgically today. remains critically ill in ongoing shock. Plan: Neurological Acute metabolic encephalopathy -Sedation with propofol, Analgesia with fentanyl -Encephalopathy largely due to sepsis and hyperglycemia -RASS goal -2. Cardiovascular Septic Shock- persistent Myocardial dysfunction secondary to septic shock -Rj-Synephrine for goal map > 65 mmHg. Continue vasopressin - Off milrinone. Flowtrack suggesting CI > 3.5. if she needs additional inotropic therapy may benefit from epinephrine or dobutamine. -s/p 2 units of prbc for ongoing blood loss and anemia will help with intravascular volume expansion as well. -Follow acid-base balance closely Respiratory Acute hypoxic and hypercarbic respiratory failure- persistent -Intubation and mechanical ventilation, Bronchodilators - HOB elevated, vent bundle - wean fio2 for goal spo2 > 90% - no weaning of mechanical ventilation until shock improves - Repeat chest x-ray am - PEEP to 8 Endocrinology Diabetes Severe hypoglycemia - hold Levemir - med scale SSI. -Follow potassium and magnesium closely Hematology/Infectious Disease Septic Shock Necrotizing soft tissue infection -Follow white count and platelet count closely. WBC count increasing - Continue daptomycin and Zosyn. ID Stopped clindamycin. - Diflucan for fungal coverage. -OR per general surgery GI Acute protein calorie malnutrition- severe - prealbumin 5 on 12/18. severely malnourished. - daily bmp, mg, phos -Tube feeds infusing Acute kidney injury -Tristan required for hourly urine output -High risk for further deterioration in renal function -Needs Tristan at this time to protect perineal region HEME -Thrombosis left internal jugular, subclavian, axillary and distal arm veins. -Hold anticoagulation pending surgical debridement. Prophylaxis -Pepcid for GI ulcer prophylaxis -SCDs for DVT prophylaxis -Hold chemical DVT prophylaxis until ongoing surgical decisions regarding further debridement are made Lines: Left subclavian central venous line placed 12/15, discontinued 12/23. Right subclavian central venous line placed 12/23 Overall impression: This woman is critically ill and in septic shock with necrotizing fasciitis emanating from a deep chronic sacral decubitus ulcer. She remains hemodynamically unstable and requiring vasopressor support. Peripheral perfusion and urine output is acceptable. Critical care 35 minutes
[2017-12-25] MEDS: Propofol 1000 mg/100 ml Inj 1,000 MG/100 ML BOTTLE IV.CONT PRN (17:56)
[2017-12-25] MEDS: Vasopressin Inj 40 UNIT in Sodium Chlor 0.9% Inj 98 ML IV.CONT SCH (18:39)
[2017-12-26] MEDS: Insulin NovoLIN Regular Correctional Sugar Inj SQ SCH ×6 (00:34→19:47)
[2017-12-26] MEDS: Dextrose 5%/Lactated Ringer's 1,000 ML IV.CONT SCH ×4 (01:44→23:18)
[2017-12-26] MEDS: fentaNYL 10 mcg/mL Premix Drip 2,500 MCG/250 ML BAG IV.SIG PRN ×2 (02:57→15:09)
[2017-12-26] MEDS: Oral Hygiene Kit OROPHARYNG SCH ×3 (04:47→17:36)
--- NOTE | 2017-12-26 04:47 | XR ---
EXAM DATE: 12/26/2017 4:35 AM EST AGE/SEX: 52 years / Female INDICATIONS: Shortness of breath. CLINICAL DATA: This is the patient's subsequent encounter. Patient reports that signs and symptoms h ave been present for 1 week and indicates a pain score of Nonresponsive. MEDICAL/SURGICAL HISTORY: . Benign hypertension. Decubital ulcer. Diabetes. GERD. Hepatitis C v irus. Clostridium difficile colitis. Diabetic gastroparesis. MRSA. Osteomyelitis. Peripheral neuropat hy. Peripheral vascular disease. . Below the knee amputation. section x2. COMPARISON: C, CHEST 1V SINGLE AP, 12/24/2017. . FINDINGS: Endotracheal tube is present in good position with tip several centimeters above the damian. Nasogast an tube descends in the stomach. Right subclavian central line is stable in good position. There is been some interval clearance of right base infiltrate. Left base infiltrate is grossly unchanged. Car diac contours are unchanged. CONCLUSION: Slight improvement in aeration Electronically signed by: Derek Carreno MD 12/26/2017 4:46 AM EST
[2017-12-26] MEDS: Propofol 1000 mg/100 ml Inj 1,000 MG/100 ML BOTTLE IV.CONT PRN ×2 (05:51→14:17)
[2017-12-26 05:59] LABS: Baso # (Auto) 0.3 th/mm3 (0.0-0.2); Baso % (Auto) 1.4 % (0.0-2.0); Eos # (Auto) 0.2 th/mm3 (0.0-0.4); Eos % (Auto) 0.9 % (0.0-4.0); Hematocrit 24.6 % (35.0-46.0); Hemoglobin 8.3 gm/dL (11.6-15.3); Lymph # (Auto) 3.6 th/mm3 (1.0-4.8); Lymph % (Auto) 16.4 % (9.0-44.0); Mean Corpuscular HGB Conc 33.8 % (32.0-36.0); Mean Corpuscular Hemoglobin 30.3 pg (27.0-34.0); Mean Corpuscular Volume 89.7 fL (80.0-100.0); Mono # (Auto) 0.6 th/mm3 (0.0-0.9); Mono % (Auto) 2.9 % (0.0-8.0); Neut # (Auto) 17.3 th/mm3 (1.8-7.7); Neut % (Auto) 78.4 % (16.0-70.0); Platelet Count 213 th/mm3 (150-450); Red Blood Count 2.74 mil/mm3 (4.00-5.30); Red Cell Distribution Width 16.8 % (11.6-17.2)
[2017-12-26] MEDS: Piperacil/Tazo 4.5 GM Premix 4.5 GM/100 ML BAG IV.SIG SCH ×4 (06:46→18:00)
[2017-12-26 06:48] LABS: Alkaline Phosphatase 301 U/L (45-117); Anion Gap 11 meq/L (5-15); Aspartate Aminotransferase 7 U/L (15-37); Blood Urea Nitrogen 35 mg/dL (7-18); Carbon Dioxide 21.3 meq/L (21.0-32.0); Chloride 100 meq/L (98-107); Glomerular Filtration Rate 61 mL/min (>89); Glucose,Random 181 mg/dL (74-106); Magnesium 1.3 mg/dL (1.5-2.5); Potassium 3.2 meq/L (3.5-5.1); Sodium 132 meq/L (136-145); Total Protein 6.4 g/dL (6.4-8.2)
[2017-12-26 07:56] LABS: Eosinophils 1 % (0-4); Lymphocytes 13 % (9-44); Monocytes 3 % (0-8); Platelet Estimate Normal (Normal); Toxic Granulation 1+; Toxic Vacuolation Present
[2017-12-26 07:57] LABS: Spherocytes Occ
[2017-12-26] MEDS: Famotidine PF Inj 20 MG/2 ML Vial IV.PUSH SCH ×2 (09:00→20:47)
[2017-12-26] MEDS: Enoxaparin Inj 30 MG/0.3 ML Syringe SQ SCH (09:00)
[2017-12-26] MEDS: Potassium Chlor 40 mEq Premix 40 MEQ/100 ML PIGGYBACK IV.SIG PRN ×2 (09:01→14:15)
[2017-12-26] MEDS: Chlorhexidine 0.12% Oral Kit 15 ML UDC OROPHARYNG SCH ×2 (09:01→20:47)
[2017-12-26] MEDS: Senna/Docusate Sodium 8.6/50 MG Tablet PO SCH ×2 (09:01→20:47)
[2017-12-26] MEDS: Vasopressin Inj 40 UNIT in Sodium Chlor 0.9% Inj 98 ML IV.CONT SCH (11:26)
[2017-12-26] MEDS ORDERED: Calcium Chloride Inj 1 GM/10 ML Syringe IV.PUSH ONE (12:52)
--- NOTE | 2017-12-26 12:53 | P.PNCC ---
Subjective Subjective Remarks/Hospital Course: This 52-year-old woman with long-standing uncontrolled diabetes mellitus and severe peripheral arterial disease related to a long-term heavy smoking history was found down at her home and initial blood glucose was 610. Her lower back and buttocks was exquisitely tender and a mid line stage IV sacral decubitus was oozing purulent material and inflamed and the surrounding soft tissue. White count was not elevated but 90% neutrophils. Temperature 97 degrees. Moderately encephalopathic though conversant. X-rays revealed no fractures in the pelvis but CAT scan demonstrated extensive subcutaneous air emanating in both directions left and right from the mid sacral region. This is clearly necrotizing fasciitis or some other gas-forming infection and the woman is critically ill. She received vancomycin, Zosyn, and clindamycin antibiotic therapy as quickly as possible and was transferred to the ICU for ongoing resuscitation. Because of worsening hemodynamic stability she required intubation and mechanical ventilation followed by central line placement on arrival to the ICU. Insulin drip infusion was started in the emergency department and glucose had declined into the low 400s. She was not in ketoacidosis but lactic acid was elevated at 3.1. General surgery and orthopedic surgery were consulted for recommendations and it was felt that this woman was too unstable to tolerate an operative procedure immediately. We continue her ongoing resuscitation and trial in the ICU at this stage. 12/16: Following aggressive resuscitation yesterday for the treatment of severe hyperglycemia, septic shock, respiratory failure, metabolic acidosis, acute kidney injury, the patient went to the operating room with an extensive wide debridement bilateral gluteal and left thigh soft tissue and muscle. Primary antibiotic coverage at this point is vancomycin, cefepime, clindamycin. The patient started to make urine late yesterday afternoon and has continued to acceptable output since. Lactic acidosis is 2.0 this morning but metabolic acidosis persists despite bicarb drip. She remains on vasopressor support and hemodynamically unstable. 12/17: s/p debridement of large nec fasc wound. remains in shock today. also very hypoglycemic requiring multiple D50 amps overnight. 12/18: back in worsening shock. vasopressor support higher. required 2L crystalloid overnight and additional 1L and 500cc albumin today. ivc completely flat on bedside echo. LVEF hyperdynamic. no pericardial effusion. spoken with gen surg. plan to go back early to eval for worsening necrosis. fio2 also up to 100% and peep 10- hypoxic, likely early ARDS. 12/19: clinically doing better. still in shock on vasopressors, but requirements are lower and lactate cleared. Cr slowly uptrending. SVV still 19% today and appears to be volume responsive. gen surgery ordered 2 units prbc for falling hgb in the setting of blood loss with surgical intervention yesterday. fio2 improving. glycemic control also improving. 12/20: Markedly impaired oxygenation persists. Still requiring elevated end expiratory pressure. Nutritional support continues but she remains catabolic. It will be difficult to keep up with her nutritional needs. 12/21: Continued severe sepsis requiring vasopressor support and mechanical ventilation. Oxygenation remains impaired and smoldering metabolic acidosis persists. Despite hemodynamic instability the patient's only hope for survival is with infection source control through further debridement. Clearly a greatly increased risk however for any procedure. 12/22: Persistent septic shock course requiring vasopressor support and regular debridement. Good antibiotic coverage but she continues to require adjustment of ventilator, hemodynamic support drugs, antibiotics, intravenous fluids. Her nutritional status was quite depleted on arrival and continues to deteriorate despite adjuvant nutrition. 12/23: Patient continues septic course. She has developed venous clot throughout her left internal jugular subclavian and axillary vein system. Not a candidate for full anticoagulation because of need for frequent surgical debridement. We will pull out the catheter today and placing In the right subclavian route. 12/24 remains critically ill and septic remains on Rj-Synephrine at 50 mcg/kg/ min. WBC count increasing 20 6K today. Antibiotics have been changed by ID. Diflucan added for Talia UTI. Plan for OR today per surgery 12/25: Went to OR yesterday, s/p Incision, drainage with excisional debridement of back, buttock, thigh, and VAC change. Main septic White count increasing 31, 000 today, remains on pressors vasopressin and Rj-Synephrine. 12/26: Remains critical remains on vasopressin to maintain blood pressure and map above 65, currently off Rj-Synephrine. Remains severely fluid overloaded approximately 20 kg up. Despite pressor use will start IV diuretics to achieve negative fluid balance Objective Vital Signs / I&O: Vital Signs 12/25/17 13:00 12/25/17 13:15 12/25/17 13:30 Temperature Pulse Rate 69 65 69 Respiratory Rate Blood Pressure Pulse Oximetry 97 97 97 12/25/17 13:45 12/25/17 14:00 12/25/17 14:15 Temperature Pulse Rate 69 75 89 Respiratory Rate Blood Pressure Pulse Oximetry 96 96 96 12/25/17 14:30 12/25/17 14:45 12/25/17 15:00 Temperature Pulse Rate 78 76 73 Respiratory Rate Blood Pressure Pulse Oximetry 96 97 97 12/25/17 15:15 12/25/17 15:30 12/25/17 15:45 Temperature Pulse Rate 68 66 66 Respiratory Rate Blood Pressure Pulse Oximetry 97 97 97 12/25/17 16:00 12/25/17 16:06 12/25/17 16:15 Temperature 98.6 F Pulse Rate 69 81 Respiratory Rate 16 Blood Pressure Pulse Oximetry 97 96 96 12/25/17 16:30 12/25/17 16:45 12/25/17 17:00 Temperature Pulse Rate 90 90 76 Respiratory Rate Blood Pressure Pulse Oximetry 94 L 95 95 12/25/17 17:15 12/25/17 17:30 12/25/17 17:45 Temperature Pulse Rate 69 69 75 Respiratory Rate Blood Pressure Pulse Oximetry 96 95 96 12/25/17 18:00 12/25/17 18:15 12/25/17 18:30 Temperature Pulse Rate 67 65 68 Respiratory Rate Blood Pressure Pulse Oximetry 96 95 95 12/25/17 18:45 12/25/17 19:00 12/25/17 19:15 Temperature Pulse Rate 80 72 86 Respiratory Rate Blood Pressure Pulse Oximetry 95 94 L 97 12/25/17 19:30 12/25/17 19:45 12/25/17 20:00 Temperature 98.1 F Pulse Rate 84 85 77 Respiratory Rate Blood Pressure Pulse Oximetry 95 94 L 94 L 12/25/17 20:14 12/25/17 20:15 12/25/17 20:30 Temperature Pulse Rate 72 73 75 Respiratory Rate Blood Pressure 126/83 Pulse Oximetry 95 95 93 L 12/25/17 20:45 12/25/17 20:55 12/25/17 21:00 Temperature Pulse Rate 85 81 94 H Respiratory Rate Blood Pressure 122/71 Pulse Oximetry 92 L 93 L 92 L 12/25/17 21:15 12/25/17 21:30 12/25/17 21:45 Temperature Pulse Rate 90 85 80 Respiratory Rate 17 Blood Pressure Pulse Oximetry 95 92 L 94 L 12/25/17 22:00 12/25/17 22:15 12/25/17 22:30 Temperature Pulse Rate 90 78 76 Respiratory Rate Blood Pressure Pulse Oximetry 92 L 92 L 92 L 12/25/17 22:45 12/25/17 23:00 12/25/17 23:15 Temperature Pulse Rate 79 71 72 Respiratory Rate Blood Pressure Pulse Oximetry 92 L 92 L 92 L 12/25/17 23:30 12/25/17 23:38 12/25/17 23:45 Temperature Pulse Rate 75 72 Respiratory Rate 16 Blood Pressure Pulse Oximetry 91 L 92 L 93 L 12/26/17 00:00 12/26/17 00:15 12/26/17 00:30 Temperature 98.3 F Pulse Rate 71 74 70 Respiratory Rate Blood Pressure Pulse Oximetry 95 95 92 L 12/26/17 00:45 12/26/17 01:00 12/26/17 01:15 Temperature Pulse Rate 71 74 70 Respiratory Rate Blood Pressure Pulse Oximetry 93 L 95 95 12/26/17 01:30 12/26/17 01:45 12/26/17 02:00 Temperature Pulse Rate 71 72 70 Respiratory Rate Blood Pressure Pulse Oximetry 95 95 93 L 12/26/17 02:15 12/26/17 02:30 12/26/17 02:45 Temperature Pulse Rate 72 75 74 Respiratory Rate Blood Pressure Pulse Oximetry 92 L 92 L 91 L 12/26/17 03:00 12/26/17 03:31 12/26/17 04:00 Temperature 98.1 F Pulse Rate 73 71 Respiratory Rate 16 Blood Pressure Pulse Oximetry 96 94 L 95 12/26/17 07:00 12/26/17 07:07 12/26/17 07:15 Temperature Pulse Rate 101 H 101 H 98 H Respiratory Rate Blood Pressure 103/57 L Pulse Oximetry 93 L 93 L 94 L 12/26/17 07:22 12/26/17 07:30 12/26/17 07:37 Temperature Pulse Rate 97 H 97 H 95 H Respiratory Rate Blood Pressure 103/57 L 95/66 L Pulse Oximetry 94 L 94 L 94 L 12/26/17 07:45 12/26/17 07:52 12/26/17 08:00 Temperature 97.6 F Pulse Rate 95 H 102 H 98 H Respiratory Rate Blood Pressure 99/65 L Pulse Oximetry 94 L 93 L 94 L 12/26/17 08:07 12/26/17 08:15 12/26/17 08:22 Temperature Pulse Rate 93 H 94 H 95 H Respiratory Rate Blood Pressure 102/61 103/56 L Pulse Oximetry 94 L 93 L 94 L 12/26/17 08:30 12/26/17 08:37 12/26/17 08:45 Temperature Pulse Rate 93 H 92 H 96 H Respiratory Rate Blood Pressure 102/58 L Pulse Oximetry 94 L 93 L 93 L 12/26/17 08:52 12/26/17 09:00 12/26/17 09:07 Temperature Pulse Rate 94 H 93 H 101 H Respiratory Rate Blood Pressure 108/60 106/66 Pulse Oximetry 94 L 94 L 93 L 12/26/17 09:15 12/26/17 09:16 12/26/17 09:22 Temperature Pulse Rate 92 H 93 H Respiratory Rate 16 Blood Pressure 105/64 Pulse Oximetry 93 L 94 L 93 L 12/26/17 09:30 12/26/17 09:37 12/26/17 09:45 Temperature Pulse Rate 87 85 89 Respiratory Rate Blood Pressure 99/61 L Pulse Oximetry 94 L 95 94 L 12/26/17 09:52 12/26/17 10:00 12/26/17 10:07 Temperature Pulse Rate 84 85 85 Respiratory Rate Blood Pressure 89/64 L 87/65 L Pulse Oximetry 95 95 95 12/26/17 10:15 12/26/17 10:22 12/26/17 10:30 Temperature Pulse Rate 83 81 81 Respiratory Rate Blood Pressure 83/62 L Pulse Oximetry 95 95 95 12/26/17 10:37 12/26/17 10:45 12/26/17 10:52 Temperature Pulse Rate 80 82 77 Respiratory Rate Blood Pressure 85/62 L 85/61 L Pulse Oximetry 95 95 95 12/26/17 11:00 12/26/17 11:07 12/26/17 11:15 Temperature Pulse Rate 81 78 79 Respiratory Rate Blood Pressure 86/63 L Pulse Oximetry 95 95 95 12/26/17 11:22 12/26/17 11:30 12/26/17 11:37 Temperature Pulse Rate 87 81 80 Respiratory Rate Blood Pressure 94/64 L 88/60 L Pulse Oximetry 95 95 95 12/26/17 11:42 12/26/17 11:45 12/26/17 11:52 Temperature Pulse Rate 82 92 H Respiratory Rate 17 Blood Pressure 109/65 Pulse Oximetry 94 L 94 L 93 L 12/26/17 12:00 12/26/17 12:07 12/26/17 12:15 Temperature 97.7 F Pulse Rate 80 77 77 Respiratory Rate Blood Pressure 99/55 L Pulse Oximetry 94 L 95 95 12/26/17 12:22 12/26/17 12:30 Temperature Pulse Rate 86 81 Respiratory Rate Blood Pressure 102/58 L Pulse Oximetry 94 L 95 Intake & Output 12/25/17 12/26/17 12/26/17 18:59 06:59 18:59 Intake Total 2877 / 2877 2076 / 2076 200 / 200 Output Total 1175 / 1175 1050 / 1050 Balance 1702 / 1702 1026 / 1026 200 / 200 Weight 83.1 kg Intake: IV 2756 / 2756 1950 / 1950 200 / 200 D5W/LR Inj 1,000 ML @ 75 mls/hr 1000 / 1000 1000 / 1000 IV.CONT .[id number] [facility] Rx#: [id number] Neosynephrine Inj 40 MG In D5W 496 / 496 500 / 500 Inj 496 ML @ 40 MCG/MIN 30 mls/ hr IV.CONT TITRATE PRN Rx#: [id number] Diprivan 1000 mg/100 ml Inj 1, 100 / 100 100 / 100 000 mg In 100 ml @ 5 MCG/KG/MIN 1.837 mls/hr IV.CONT TITRATE PRN Rx#:[id number] Pitressin Inj 40 UNIT In NS Inj 200 / 200 100 / 100 98 ML @ 0.04 UNITS/MIN 6 mls/ hr IV.CONT CONT [facility] Rx#: [id number] Calcium Gluconate Inj 1 GM In 110 / 110 NS Inj 100 ML @ 110 mls/hr IV. SIG ONCE ONE Rx#:[id number] Cubicin Inj 400 MG In NS Inj 100 / 100 100 ML @ 200 mls/hr IV.SIG Q24H [facility] Rx#:[id number] Diflucan 400 mg Premix Bag 200 200 / 200 ML @ 100 mls/hr IV.SIG Q24H [facility] Rx#:[id number] Zosyn 4.5 GM Premix 4.5 gm In 300 / 300 100 / 100 100 / 100 100 ml @ 200 mls/hr IV.SIG Q6H [facility] Rx#:[id number] fentaNYL 10 mcg/mL Premix Drip 250 / 250 250 / 250 2,500 mcg In 250 ml @ 50 MCG/HR 5 mls/hr IV.SIG TITRATE PRN Rx #:[id number] Tube Feeding 121 / 121 126 / 126 Output: Urine 375 / 375 Stool 75 / 75 Urine Amount (Catheter) 375 / 375 700 / 700 1 375 / 375 700 / 700 Gastric Drainage 0 / 0 Nasogastric Tube 0 / 0 Wound Drainage 350 / 350 Sacrum 350 / 350 Wound Vac Amount 350 / 350 Posterior Sacrum 350 / 350 Other: Mode Setting Posterior Sacrum Continuous Continuous Continuous Date of Last Bowel Movement 12/25/17 # Bowel Movements 1 # Incontinent Bowel Movements 1 Result Diagrams: 12/26/17 05:00 12/26/17 05:00 Objective Remarks: General: Ill-appearing middle-aged woman, intubated and lightly sedated Head: Atraumatic, edentulous Neck: Supple, orotracheal intubation Lungs: equal chest rise. Scattered rhonchi but acceptable air movement. peep 8. Heart: tachycardic rate and regular rhythm. no JVD. Hypotensive on vasopressin Abdomen: Soft, no guarding, no peritoneal irritation. Back: Wound VAC in place over lower lumbar region there is a moderate erythema to the skin over the pelvis and buttocks. Extremities: Warm, adequately perfused, status post below-knee amputation right side, necrotic ulceration over several toes left foot. Generalized edema involving the left arm. Generalized anasarca Neurological: Intubated and sedated, moves 4 limbs to stimulation. Pupils responsive. Cough, gag intact. Do not follow commands Assessment and Plan - Problem List (1) Septic shock with acute organ dysfunction due to anaerobic bacteria Code(s): A41.4 - Sepsis due to anaerobes; R65.21 - Severe sepsis with septic shock Status: Acute (2) Acute respiratory failure Code(s): J96.00 - Acute respiratory failure, unspecified whether with hypoxia or hypercapnia Status: Acute (3) Necrotizing fasciitis Code(s): M72.6 - Necrotizing fasciitis Status: Acute (4) Type 2 diabetes mellitus with hyperosmolar nonketotic hyperglycemia Code(s): E11.01 - Type 2 diabetes mellitus with hyperosmolarity with coma Status: Acute (5) MARIO (acute kidney injury) Code(s): N17.9 - Acute kidney failure, unspecified Status: Acute (6) Lactic acidosis Code(s): E87.2 - Acidosis Status: Acute - Assessment and Plan Plan: Assessment: 52yF with large necrotizing soft tissue infection of the lower back and sacrum complicated by septic shock and multiorgan dysfunction. Continued vasopressors, ivf, and antibiotics. plan for re-evaluation surgically sunday. remains critically ill in ongoing shock. Plan: Neurological Acute metabolic encephalopathy -Sedation with propofol, Analgesia with fentanyl -Encephalopathy largely due to sepsis and hyperglycemia -RASS goal -2. Cardiovascular Septic Shock- persistent Myocardial dysfunction secondary to septic shock - Vasopressin for goal map > 65 mmHg. - Off milrinone. Flowtrack suggesting CI > 3.5. if she needs additional inotropic therapy may benefit from epinephrine or dobutamine. - s/p 2 units of prbc for ongoing blood loss and anemia will help with intravascular volume expansion as well. - Follow acid-base balance closely Respiratory Acute hypoxic and hypercarbic respiratory failure- persistent -Intubation and mechanical ventilation, Bronchodilators - HOB elevated, vent bundle - wean fio2 for goal spo2 > 90% - no weaning of mechanical ventilation until shock improves - Repeat chest x-ray am - PEEP to 8 Endocrinology Diabetes Severe hypoglycemia - hold Levemir - med scale SSI. -Follow potassium and magnesium closely Hematology/Infectious Disease Septic Shock Necrotizing soft tissue infection -Follow white count and platelet count closely. WBC count now trending down - Continue daptomycin and Zosyn. ID Stopped clindamycin. - Diflucan for fungal coverage. -OR per general surgery, next planned for I&D and wound VAC change on Sunday GI Acute protein calorie malnutrition- severe - prealbumin 5 on 12/18. severely malnourished. - daily bmp, mg, phos -Tube feeds infusing Acute kidney injury -Tristan required for hourly urine output -High risk for further deterioration in renal function -Needs Tristan at this time to protect perineal region HEME -Thrombosis left internal jugular, subclavian, axillary and distal arm veins. -Hold anticoagulation pending surgical debridement. Prophylaxis -Pepcid for GI ulcer prophylaxis -SCDs for DVT prophylaxis -Hold chemical DVT prophylaxis until ongoing surgical decisions regarding further debridement are made Lines: Left subclavian central venous line placed 12/15, discontinued 12/23. Right subclavian central venous line placed 12/23 Overall impression: This woman is critically ill and in septic shock with necrotizing fasciitis emanating from a deep chronic sacral decubitus ulcer. She remains hemodynamically unstable and requiring vasopressor support. Peripheral perfusion and urine output is acceptable. Critical care 35 minutes
--- NOTE | 2017-12-26 14:05 | P.PNGS ---
Subjective Interval history: Intubated Physical Exam Vital signs: Vital Signs 12/25/17 14:15 12/25/17 14:30 12/25/17 14:45 Temperature Pulse Rate 89 78 76 Respiratory Rate Blood Pressure Pulse Oximetry 96 96 97 12/25/17 15:00 12/25/17 15:15 12/25/17 15:30 Temperature Pulse Rate 73 68 66 Respiratory Rate Blood Pressure Pulse Oximetry 97 97 97 12/25/17 15:45 12/25/17 16:00 12/25/17 16:06 Temperature 98.6 F Pulse Rate 66 69 Respiratory Rate 16 Blood Pressure Pulse Oximetry 97 97 96 12/25/17 16:15 12/25/17 16:30 12/25/17 16:45 Temperature Pulse Rate 81 90 90 Respiratory Rate Blood Pressure Pulse Oximetry 96 94 L 95 12/25/17 17:00 12/25/17 17:15 12/25/17 17:30 Temperature Pulse Rate 76 69 69 Respiratory Rate Blood Pressure Pulse Oximetry 95 96 95 12/25/17 17:45 12/25/17 18:00 12/25/17 18:15 Temperature Pulse Rate 75 67 65 Respiratory Rate Blood Pressure Pulse Oximetry 96 96 95 12/25/17 18:30 12/25/17 18:45 12/25/17 19:00 Temperature Pulse Rate 68 80 72 Respiratory Rate Blood Pressure Pulse Oximetry 95 95 94 L 12/25/17 19:15 12/25/17 19:30 12/25/17 19:45 Temperature Pulse Rate 86 84 85 Respiratory Rate Blood Pressure Pulse Oximetry 97 95 94 L 12/25/17 20:00 12/25/17 20:14 12/25/17 20:15 Temperature 98.1 F Pulse Rate 77 72 73 Respiratory Rate Blood Pressure 126/83 Pulse Oximetry 94 L 95 95 12/25/17 20:30 12/25/17 20:45 12/25/17 20:55 Temperature Pulse Rate 75 85 81 Respiratory Rate Blood Pressure 122/71 Pulse Oximetry 93 L 92 L 93 L 12/25/17 21:00 12/25/17 21:15 12/25/17 21:30 Temperature Pulse Rate 94 H 90 85 Respiratory Rate 17 Blood Pressure Pulse Oximetry 92 L 95 92 L 12/25/17 21:45 12/25/17 22:00 12/25/17 22:15 Temperature Pulse Rate 80 90 78 Respiratory Rate Blood Pressure Pulse Oximetry 94 L 92 L 92 L 12/25/17 22:30 12/25/17 22:45 12/25/17 23:00 Temperature Pulse Rate 76 79 71 Respiratory Rate Blood Pressure Pulse Oximetry 92 L 92 L 92 L 12/25/17 23:15 12/25/17 23:30 12/25/17 23:38 Temperature Pulse Rate 72 75 Respiratory Rate 16 Blood Pressure Pulse Oximetry 92 L 91 L 92 L 12/25/17 23:45 12/26/17 00:00 12/26/17 00:15 Temperature 98.3 F Pulse Rate 72 71 74 Respiratory Rate Blood Pressure Pulse Oximetry 93 L 95 95 12/26/17 00:30 12/26/17 00:45 12/26/17 01:00 Temperature Pulse Rate 70 71 74 Respiratory Rate Blood Pressure Pulse Oximetry 92 L 93 L 95 12/26/17 01:15 12/26/17 01:30 12/26/17 01:45 Temperature Pulse Rate 70 71 72 Respiratory Rate Blood Pressure Pulse Oximetry 95 95 95 12/26/17 02:00 12/26/17 02:15 12/26/17 02:30 Temperature Pulse Rate 70 72 75 Respiratory Rate Blood Pressure Pulse Oximetry 93 L 92 L 92 L 12/26/17 02:45 12/26/17 03:00 12/26/17 03:31 Temperature Pulse Rate 74 73 Respiratory Rate 16 Blood Pressure Pulse Oximetry 91 L 96 94 L 12/26/17 04:00 12/26/17 07:00 12/26/17 07:07 Temperature 98.1 F Pulse Rate 71 101 H 101 H Respiratory Rate Blood Pressure 103/57 L Pulse Oximetry 95 93 L 93 L 12/26/17 07:15 12/26/17 07:22 12/26/17 07:30 Temperature Pulse Rate 98 H 97 H 97 H Respiratory Rate Blood Pressure 103/57 L Pulse Oximetry 94 L 94 L 94 L 12/26/17 07:37 12/26/17 07:45 12/26/17 07:52 Temperature Pulse Rate 95 H 95 H 102 H Respiratory Rate Blood Pressure 95/66 L 99/65 L Pulse Oximetry 94 L 94 L 93 L 12/26/17 08:00 12/26/17 08:07 12/26/17 08:15 Temperature 97.6 F Pulse Rate 98 H 93 H 94 H Respiratory Rate Blood Pressure 102/61 Pulse Oximetry 94 L 94 L 93 L 12/26/17 08:22 12/26/17 08:30 12/26/17 08:37 Temperature Pulse Rate 95 H 93 H 92 H Respiratory Rate Blood Pressure 103/56 L 102/58 L Pulse Oximetry 94 L 94 L 93 L 12/26/17 08:45 12/26/17 08:52 12/26/17 09:00 Temperature Pulse Rate 96 H 94 H 93 H Respiratory Rate Blood Pressure 108/60 Pulse Oximetry 93 L 94 L 94 L 12/26/17 09:07 12/26/17 09:15 12/26/17 09:16 Temperature Pulse Rate 101 H 92 H Respiratory Rate 16 Blood Pressure 106/66 Pulse Oximetry 93 L 93 L 94 L 12/26/17 09:22 12/26/17 09:30 12/26/17 09:37 Temperature Pulse Rate 93 H 87 85 Respiratory Rate Blood Pressure 105/64 99/61 L Pulse Oximetry 93 L 94 L 95 12/26/17 09:45 12/26/17 09:52 12/26/17 10:00 Temperature Pulse Rate 89 84 85 Respiratory Rate Blood Pressure 89/64 L Pulse Oximetry 94 L 95 95 12/26/17 10:07 12/26/17 10:15 12/26/17 10:22 Temperature Pulse Rate 85 83 81 Respiratory Rate Blood Pressure 87/65 L 83/62 L Pulse Oximetry 95 95 95 12/26/17 10:30 12/26/17 10:37 12/26/17 10:45 Temperature Pulse Rate 81 80 82 Respiratory Rate Blood Pressure 85/62 L Pulse Oximetry 95 95 95 12/26/17 10:52 12/26/17 11:00 12/26/17 11:07 Temperature Pulse Rate 77 81 78 Respiratory Rate Blood Pressure 85/61 L 86/63 L Pulse Oximetry 95 95 95 12/26/17 11:15 12/26/17 11:22 12/26/17 11:30 Temperature Pulse Rate 79 87 81 Respiratory Rate Blood Pressure 94/64 L Pulse Oximetry 95 95 95 12/26/17 11:37 12/26/17 11:42 12/26/17 11:45 Temperature Pulse Rate 80 82 Respiratory Rate 17 Blood Pressure 88/60 L Pulse Oximetry 95 94 L 94 L 12/26/17 11:52 12/26/17 12:00 12/26/17 12:07 Temperature 97.7 F Pulse Rate 92 H 80 77 Respiratory Rate Blood Pressure 109/65 99/55 L Pulse Oximetry 93 L 94 L 95 12/26/17 12:15 12/26/17 12:22 12/26/17 12:30 Temperature Pulse Rate 77 86 81 Respiratory Rate Blood Pressure 102/58 L Pulse Oximetry 95 94 L 95 Intake & Output 12/25/17 12/26/17 12/26/17 18:59 06:59 18:59 Intake Total 2877 / 2877 2076 / 2076 200 / 200 Output Total 1175 / 1175 1050 / 1050 Balance 1702 / 1702 1026 / 1026 200 / 200 Weight 83.1 kg Intake: IV 2756 / 2756 1950 / 1950 200 / 200 D5W/LR Inj 1,000 ML @ 75 mls/hr 1000 / 1000 1000 / 1000 IV.CONT .[id number] RICARDO Rx#: [id number] Neosynephrine Inj 40 MG In D5W 496 / 496 500 / 500 Inj 496 ML @ 40 MCG/MIN 30 mls/ hr IV.CONT TITRATE PRN Rx#: [id number] Diprivan 1000 mg/100 ml Inj 1, 100 / 100 100 / 100 000 mg In 100 ml @ 5 MCG/KG/MIN 1.837 mls/hr IV.CONT TITRATE PRN Rx#:[id number] Pitressin Inj 40 UNIT In NS Inj 200 / 200 100 / 100 98 ML @ 0.04 UNITS/MIN 6 mls/ hr IV.CONT CONT RICARDO Rx#: [id number] Calcium Gluconate Inj 1 GM In 110 / 110 NS Inj 100 ML @ 110 mls/hr IV. SIG ONCE ONE Rx#:[id number] Cubicin Inj 400 MG In NS Inj 100 / 100 100 ML @ 200 mls/hr IV.SIG Q24H RICARDO Rx#:[id number] Diflucan 400 mg Premix Bag 200 200 / 200 ML @ 100 mls/hr IV.SIG Q24H RICARDO Rx#:[id number] Zosyn 4.5 GM Premix 4.5 gm In 300 / 300 100 / 100 100 / 100 100 ml @ 200 mls/hr IV.SIG Q6H RICARDO Rx#:[id number] fentaNYL 10 mcg/mL Premix Drip 250 / 250 250 / 250 2,500 mcg In 250 ml @ 50 MCG/HR 5 mls/hr IV.SIG TITRATE PRN Rx #:[id number] Tube Feeding 121 / 121 126 / 126 Output: Urine 375 / 375 Stool 75 / 75 Urine Amount (Catheter) 375 / 375 700 / 700 1 375 / 375 700 / 700 Gastric Drainage 0 / 0 Nasogastric Tube 0 / 0 Wound Drainage 350 / 350 Sacrum 350 / 350 Wound Vac Amount 350 / 350 Posterior Sacrum 350 / 350 Other: Mode Setting Posterior Sacrum Continuous Continuous Continuous Date of Last Bowel Movement 12/25/17 # Bowel Movements 1 # Incontinent Bowel Movements 1 Narrative: Intubated Abd: soft Buttock/thigh wound vac in place with good seal LEFT foot--- necrotic changes - Urinary Catheter Management 1 Cath placed during this visit: yes Reason for continuing: Severe pressure ulcer/wound Insertion date: 12/15/17 Results - Labs 12/29/17 04:30 12/29/17 04:30 Laboratory Results - last 24 hr 12/25/17 12/25/17 12/26/17 16:01 20:58 00:09 WBC RBC Hgb Hct MCV MCH MCHC RDW Plt Count MPV Prelim Diff (Auto) Neut % (Auto) Lymph % (Auto) [place] % (Auto) Eos % (Auto) Baso % (Auto) Neut # (Auto) Lymph # (Auto) [place] # (Auto) Eos # (Auto) Baso # (Auto) WBC Differential Seg Neuts % (Manual) Band Neuts % (Manual) Lymphocytes % (Manual) Monocytes % (Manual) Eosinophils % (Manual) Abs Neuts (Manual) Differential Comment Toxic Granulation Toxic Vacuolation Platelet Estimate Platelet Morphology Spherocytes Sodium Potassium Chloride Carbon Dioxide Anion Gap BUN Creatinine Estimated GFR POC Glucose 144 H 156 H 144 H Random Glucose Calcium Prot Corrected Calcium Magnesium Total Bilirubin AST ALT Alkaline Phosphatase Total Protein Albumin 12/26/17 12/26/17 12/26/17 04:30 04:34 05:00 WBC RBC Hgb Hct MCV MCH MCHC RDW Plt Count MPV Prelim Diff (Auto) Neut % (Auto) Lymph % (Auto) [place] % (Auto) Eos % (Auto) Baso % (Auto) Neut # (Auto) Lymph # (Auto) [place] # (Auto) Eos # (Auto) Baso # (Auto) WBC Differential Seg Neuts % (Manual) Band Neuts % (Manual) Lymphocytes % (Manual) Monocytes % (Manual) Eosinophils % (Manual) Abs Neuts (Manual) Differential Comment Toxic Granulation Toxic Vacuolation Platelet Estimate Platelet Morphology Spherocytes Sodium 132 L Potassium 3.2 L Chloride 100 Carbon Dioxide 21.3 Anion Gap 11 BUN 35 H Creatinine 0.96 Estimated GFR 61 L POC Glucose 188 H 175 H Random Glucose 181 H Calcium 7.0 L* Prot Corrected Calcium 7.4 L* Magnesium 1.3 L Total Bilirubin 0.6 AST 7 L ALT Less than 6 L Alkaline Phosphatase 301 H Total Protein 6.4 Albumin 1.0 L 12/26/17 12/26/17 12/26/17 05:00 08:52 11:49 WBC 22.0 H RBC 2.74 L Hgb 8.3 L Hct 24.6 L MCV 89.7 MCH 30.3 MCHC 33.8 RDW 16.8 Plt Count 213 MPV 10.0 Prelim Diff (Auto) Slide review pending Neut % (Auto) 78.4 H Lymph % (Auto) 16.4 [place] % (Auto) 2.9 Eos % (Auto) 0.9 Baso % (Auto) 1.4 Neut # (Auto) 17.3 H Lymph # (Auto) 3.6 [place] # (Auto) 0.6 Eos # (Auto) 0.2 Baso # (Auto) 0.3 H WBC Differential Manual diff final Seg Neuts % (Manual) 78 H Band Neuts % (Manual) 5 Lymphocytes % (Manual) 13 Monocytes % (Manual) 3 Eosinophils % (Manual) 1 Abs Neuts (Manual) 18.3 H Differential Comment . Toxic Granulation 1+ H Toxic Vacuolation Present H Platelet Estimate Normal Platelet Morphology Enlarged H Spherocytes Occ H Sodium Potassium Chloride Carbon Dioxide Anion Gap BUN Creatinine Estimated GFR POC Glucose 167 H 151 H Random Glucose Calcium Prot Corrected Calcium Magnesium Total Bilirubin AST ALT Alkaline Phosphatase Total Protein Albumin - Imaging Imaging: ITS Impressions Femur X-Ray 12/15/17 07:05 CONCLUSION: No fracture is identified. There is extensive soft tissue air in the right gluteal region and extending into the proximal and mid posterior thigh. The soft tissue air suggests an open wound. Pelvis X-Ray 12/15/17 07:05 CONCLUSION: No fracture is identified. However, there is extensive soft tissue air in the left gluteal region and left proximal thigh. Pelvis CT 12/15/17 07:52 CONCLUSION: 1. No fracture is identified. 2. Extensive subcutaneous and soft tissue gas bilaterally, left greater than right. It is most severe in the left gluteal region and extends into the proximal posterior thigh. The soft tissue air dissects through the gluteal musculature. There is adjacent subcutaneous edema. Foot X-Ray 12/18/17 00:00 CONCLUSION: Remote small avulsion fracture at the fifth toe. No acute bony abnormality. Venous Doppler Study 12/22/17 00:00 CONCLUSION: Extensive deep vein thrombosis of the left upper extremity. Chest X-Ray 12/26/17 06:00 CONCLUSION: Slight improvement in aeration Assessment and Plan - Assessment (1) Necrotizing fasciitis of pelvic region and thigh Code(s): M72.6 - Necrotizing fasciitis Status: Acute Plan: 52yo female with multiple medical comorbidities, s/p debridement of nec fasc -Remains critically ill -Continues to require pressor support -VAC change planned for Sunday in the OR -Continue TF -ID following - Attending Attestation patient seen at bedside vac good seal remains critical family want full code and aggressive care The exam, history, and the medical decision-making described in the above note were completed with the assistance of the mid-level provider. I reviewed and agree with the findings presented. I attest that I had a [id number] encounter with the patient on the same day, and personally performed and documented my assessment and findings in the medical record.
[2017-12-26] MEDS: DAPTOmycin Inj 400 MG in Sodium Chlor 0.9% Inj 100 ML IV.SIG SCH (14:36)
[2017-12-26] MEDS: Albumin Human 25% Inj 100 ML IV.SIG SCH (15:27)
[2017-12-26] MEDS ORDERED: Calcium Chloride Inj 1 GM in Sodium Chlor 0.9% Inj 100 ML IV.SIG ONE (16:00)
--- NOTE | 2017-12-26 16:32 | P.PNID ---
Subjective Remarks: Discussed with RN. Sedated. On the ventilator. Wound culture from I&D is pending. Preliminary results from 12/24/2017 shows yeast. Afebrile. WBC is lower. Still elevated. Post debridement 12/18/2017, 12/24/2017. This is a 52-year-old white female who was brought to the emergency department after she fell at home. The patient was noted to have profound weakness. She was evaluated in the emergency department and at that time had normal temperature and white blood cell count was also normal. She underwent CT scan of the abdomen and pelvis that showed extensive subcutaneous and soft tissue gas bilaterally with the left greater than right, most severe in the left gluteal region and extending into the proximal posterior thigh soft tissue and air-fluid dissecting through the gluteal musculature. The patient has a history of diabetes mellitus. Antibiotics: Fluconazole daptomycin zosyn Allergies/Adverse Reactions: Allergies No Known Allergies Allergy (Verified 12/15/17 07:54) Objective Vital Signs 12/25/17 16:30 12/25/17 16:45 12/25/17 17:00 Temperature Pulse Rate 90 90 76 Respiratory Rate Blood Pressure Pulse Oximetry 94 L 95 95 12/25/17 17:15 12/25/17 17:30 12/25/17 17:45 Temperature Pulse Rate 69 69 75 Respiratory Rate Blood Pressure Pulse Oximetry 96 95 96 12/25/17 18:00 12/25/17 18:15 12/25/17 18:30 Temperature Pulse Rate 67 65 68 Respiratory Rate Blood Pressure Pulse Oximetry 96 95 95 12/25/17 18:45 12/25/17 19:00 12/25/17 19:15 Temperature Pulse Rate 80 72 86 Respiratory Rate Blood Pressure Pulse Oximetry 95 94 L 97 12/25/17 19:30 12/25/17 19:45 12/25/17 20:00 Temperature 98.1 F Pulse Rate 84 85 77 Respiratory Rate Blood Pressure Pulse Oximetry 95 94 L 94 L 12/25/17 20:14 12/25/17 20:15 12/25/17 20:30 Temperature Pulse Rate 72 73 75 Respiratory Rate Blood Pressure 126/83 Pulse Oximetry 95 95 93 L 12/25/17 20:45 12/25/17 20:55 12/25/17 21:00 Temperature Pulse Rate 85 81 94 H Respiratory Rate Blood Pressure 122/71 Pulse Oximetry 92 L 93 L 92 L 12/25/17 21:15 12/25/17 21:30 12/25/17 21:45 Temperature Pulse Rate 90 85 80 Respiratory Rate 17 Blood Pressure Pulse Oximetry 95 92 L 94 L 12/25/17 22:00 12/25/17 22:15 12/25/17 22:30 Temperature Pulse Rate 90 78 76 Respiratory Rate Blood Pressure Pulse Oximetry 92 L 92 L 92 L 12/25/17 22:45 12/25/17 23:00 12/25/17 23:15 Temperature Pulse Rate 79 71 72 Respiratory Rate Blood Pressure Pulse Oximetry 92 L 92 L 92 L 12/25/17 23:30 12/25/17 23:38 12/25/17 23:45 Temperature Pulse Rate 75 72 Respiratory Rate 16 Blood Pressure Pulse Oximetry 91 L 92 L 93 L 12/26/17 00:00 12/26/17 00:15 12/26/17 00:30 Temperature 98.3 F Pulse Rate 71 74 70 Respiratory Rate Blood Pressure Pulse Oximetry 95 95 92 L 12/26/17 00:45 12/26/17 01:00 12/26/17 01:15 Temperature Pulse Rate 71 74 70 Respiratory Rate Blood Pressure Pulse Oximetry 93 L 95 95 12/26/17 01:30 12/26/17 01:45 12/26/17 02:00 Temperature Pulse Rate 71 72 70 Respiratory Rate Blood Pressure Pulse Oximetry 95 95 93 L 12/26/17 02:15 12/26/17 02:30 12/26/17 02:45 Temperature Pulse Rate 72 75 74 Respiratory Rate Blood Pressure Pulse Oximetry 92 L 92 L 91 L 12/26/17 03:00 12/26/17 03:31 12/26/17 04:00 Temperature 98.1 F Pulse Rate 73 71 Respiratory Rate 16 Blood Pressure Pulse Oximetry 96 94 L 95 12/26/17 07:00 12/26/17 07:07 12/26/17 07:15 Temperature Pulse Rate 101 H 101 H 98 H Respiratory Rate Blood Pressure 103/57 L Pulse Oximetry 93 L 93 L 94 L 12/26/17 07:22 12/26/17 07:30 12/26/17 07:37 Temperature Pulse Rate 97 H 97 H 95 H Respiratory Rate Blood Pressure 103/57 L 95/66 L Pulse Oximetry 94 L 94 L 94 L 12/26/17 07:45 12/26/17 07:52 12/26/17 08:00 Temperature 97.6 F Pulse Rate 95 H 102 H 98 H Respiratory Rate Blood Pressure 99/65 L Pulse Oximetry 94 L 93 L 94 L 12/26/17 08:07 12/26/17 08:15 12/26/17 08:22 Temperature Pulse Rate 93 H 94 H 95 H Respiratory Rate Blood Pressure 102/61 103/56 L Pulse Oximetry 94 L 93 L 94 L 12/26/17 08:30 12/26/17 08:37 12/26/17 08:45 Temperature Pulse Rate 93 H 92 H 96 H Respiratory Rate Blood Pressure 102/58 L Pulse Oximetry 94 L 93 L 93 L 12/26/17 08:52 12/26/17 09:00 12/26/17 09:07 Temperature Pulse Rate 94 H 93 H 101 H Respiratory Rate Blood Pressure 108/60 106/66 Pulse Oximetry 94 L 94 L 93 L 12/26/17 09:15 12/26/17 09:16 12/26/17 09:22 Temperature Pulse Rate 92 H 93 H Respiratory Rate 16 Blood Pressure 105/64 Pulse Oximetry 93 L 94 L 93 L 12/26/17 09:30 12/26/17 09:37 12/26/17 09:45 Temperature Pulse Rate 87 85 89 Respiratory Rate Blood Pressure 99/61 L Pulse Oximetry 94 L 95 94 L 12/26/17 09:52 12/26/17 10:00 12/26/17 10:07 Temperature Pulse Rate 84 85 85 Respiratory Rate Blood Pressure 89/64 L 87/65 L Pulse Oximetry 95 95 95 12/26/17 10:15 12/26/17 10:22 12/26/17 10:30 Temperature Pulse Rate 83 81 81 Respiratory Rate Blood Pressure 83/62 L Pulse Oximetry 95 95 95 12/26/17 10:37 12/26/17 10:45 12/26/17 10:52 Temperature Pulse Rate 80 82 77 Respiratory Rate Blood Pressure 85/62 L 85/61 L Pulse Oximetry 95 95 95 12/26/17 11:00 12/26/17 11:07 12/26/17 11:15 Temperature Pulse Rate 81 78 79 Respiratory Rate Blood Pressure 86/63 L Pulse Oximetry 95 95 95 12/26/17 11:22 12/26/17 11:30 12/26/17 11:37 Temperature Pulse Rate 87 81 80 Respiratory Rate Blood Pressure 94/64 L 88/60 L Pulse Oximetry 95 95 95 12/26/17 11:42 12/26/17 11:45 12/26/17 11:52 Temperature Pulse Rate 82 92 H Respiratory Rate 17 Blood Pressure 109/65 Pulse Oximetry 94 L 94 L 93 L 12/26/17 12:00 12/26/17 12:07 12/26/17 12:15 Temperature 97.7 F Pulse Rate 80 77 77 Respiratory Rate Blood Pressure 99/55 L Pulse Oximetry 94 L 95 95 12/26/17 12:22 12/26/17 12:30 12/26/17 16:22 Temperature Pulse Rate 86 81 Respiratory Rate 17 Blood Pressure 102/58 L Pulse Oximetry 94 L 95 97 Intake & Output 12/25/17 12/26/17 12/26/17 18:59 06:59 18:59 Intake Total 2877 / 2877 2076 / 2076 1850 / 1850 Output Total 1175 / 1175 1050 / 1050 Balance 1702 / 1702 1026 / 1026 1850 / 1850 Weight 83.1 kg Intake: IV 2756 / 2756 1950 / 1950 1850 / 1850 D5W/LR Inj 1,000 ML @ 75 mls/hr 1000 / 1000 1000 / 1000 1000 / 1000 IV.CONT .[id number] [facility] Rx#: [id number] Neosynephrine Inj 40 MG In D5W 496 / 496 500 / 500 Inj 496 ML @ 40 MCG/MIN 30 mls/ hr IV.CONT TITRATE PRN Rx#: [id number] Diprivan 1000 mg/100 ml Inj 1, 100 / 100 100 / 100 100 / 100 000 mg In 100 ml @ 5 MCG/KG/MIN 1.837 mls/hr IV.CONT TITRATE PRN Rx#:[id number] Pitressin Inj 40 UNIT In NS Inj 200 / 200 100 / 100 98 ML @ 0.04 UNITS/MIN 6 mls/ hr IV.CONT CONT [facility] Rx#: [id number] Calcium Gluconate Inj 1 GM In 110 / 110 NS Inj 100 ML @ 110 mls/hr IV. SIG ONCE ONE Rx#:[id number] Cubicin Inj 400 MG In NS Inj 100 / 100 100 / 100 100 ML @ 200 mls/hr IV.SIG Q24H [facility] Rx#:[id number] Diflucan 400 mg Premix Bag 200 200 / 200 ML @ 100 mls/hr IV.SIG Q24H [facility] Rx#:[id number] Zosyn 4.5 GM Premix 4.5 gm In 300 / 300 100 / 100 200 / 200 100 ml @ 200 mls/hr IV.SIG Q6H [facility] Rx#:[id number] KCl 40 mEq Premix Inj 40 meq In 100 / 100 100 ml @ 25 mls/hr IV.SIG Q2H PRN Rx#:[id number] fentaNYL 10 mcg/mL Premix Drip 250 / 250 250 / 250 250 / 250 2,500 mcg In 250 ml @ 50 MCG/HR 5 mls/hr IV.SIG TITRATE PRN Rx #:[id number] Tube Feeding 121 / 121 126 / 126 Output: Urine 375 / 375 Stool 75 / 75 Urine Amount (Catheter) 375 / 375 700 / 700 1 375 / 375 700 / 700 Gastric Drainage 0 / 0 Nasogastric Tube 0 / 0 Wound Drainage 350 / 350 Sacrum 350 / 350 Wound Vac Amount 350 / 350 Posterior Sacrum 350 / 350 Other: Mode Setting Posterior Sacrum Continuous Continuous Continuous Date of Last Bowel Movement 12/25/17 # Bowel Movements 1 # Incontinent Bowel Movements 1 12/24/17 12:20 Tissue - Buttock Acid Fast Bacilli Smear - Final No acid fast bacilli seen 12/24/17 12:20 Tissue - Buttock Mycobacterial Culture - Pending 12/24/17 12:20 Tissue - Buttock Fungal Smear - Final Rare budding yeast 12/24/17 12:20 Tissue - Buttock Fungal Culture - Preliminary Yeast - ID to follow 12/24/17 12:20 Tissue - Buttock Gram Stain - Final 12/24/17 12:20 Tissue - Buttock Wound Culture - Preliminary Talia albicans Lab - Hematology Results 12/25/17 12/26/17 06:30 05:00 WBC 31.0 H 22.0 H RBC 2.80 L 2.74 L Hgb 8.7 L 8.3 L Hct 25.2 L 24.6 L MCV 89.9 89.7 MCH 31.1 30.3 MCHC 34.6 33.8 RDW 16.8 16.8 Plt Count 184 213 MPV 10.5 10.0 Prelim Diff (Auto) Slide review pending Slide review pending Neut % (Auto) 85.8 H 78.4 H Lymph % (Auto) 10.8 16.4 [place] % (Auto) 2.0 2.9 Eos % (Auto) 0.6 0.9 Baso % (Auto) 0.8 1.4 Neut # (Auto) 26.6 H 17.3 H Lymph # (Auto) 3.4 3.6 [place] # (Auto) 0.6 0.6 Eos # (Auto) 0.2 0.2 Baso # (Auto) 0.2 0.3 H WBC Differential Manual diff final Manual diff final Seg Neuts % (Manual) 65 78 H Band Neuts % (Manual) 17 H 5 Lymphocytes % (Manual) 15 13 Monocytes % (Manual) 2 3 Eosinophils % (Manual) 1 Myelocytes % (Man) 1 H Abs Neuts (Manual) 25.7 H 18.3 H Differential Comment . . Toxic Granulation 1+ H 1+ H Toxic Vacuolation Present H Present H Platelet Estimate Normal Normal Platelet Morphology Normal Enlarged H Spherocytes Occ H Lab - Chemistry Results 12/24/17 12/25/17 12/25/17 20:11 00:10 06:30 Sodium 133 L Potassium 3.4 L Chloride 102 Carbon Dioxide 19.7 L Anion Gap 11 BUN 32 H Creatinine 1.11 H Estimated GFR 51 L POC Glucose 160 H 148 H Random Glucose 209 H Calcium 6.6 L* Prot Corrected Calcium 6.9 L* Magnesium Total Bilirubin AST ALT Alkaline Phosphatase Total Protein 6.4 D Albumin 12/25/17 12/25/17 12/25/17 08:25 12:58 16:01 Sodium Potassium Chloride Carbon Dioxide Anion Gap BUN Creatinine Estimated GFR POC Glucose 266 H 196 H 144 H Random Glucose Calcium Prot Corrected Calcium Magnesium Total Bilirubin AST ALT Alkaline Phosphatase Total Protein Albumin 12/25/17 12/26/17 12/26/17 20:58 00:09 04:30 Sodium Potassium Chloride Carbon Dioxide Anion Gap BUN Creatinine Estimated GFR POC Glucose 156 H 144 H 188 H Random Glucose Calcium Prot Corrected Calcium Magnesium Total Bilirubin AST ALT Alkaline Phosphatase Total Protein Albumin 12/26/17 12/26/17 12/26/17 04:34 05:00 08:52 Sodium 132 L Potassium 3.2 L Chloride 100 Carbon Dioxide 21.3 Anion Gap 11 BUN 35 H Creatinine 0.96 Estimated GFR 61 L POC Glucose 175 H 167 H Random Glucose 181 H Calcium 7.0 L* Prot Corrected Calcium 7.4 L* Magnesium 1.3 L Total Bilirubin 0.6 AST 7 L ALT Less than 6 L Alkaline Phosphatase 301 H Total Protein 6.4 Albumin 1.0 L 12/26/17 11:49 Sodium Potassium Chloride Carbon Dioxide Anion Gap BUN Creatinine Estimated GFR POC Glucose 151 H Random Glucose Calcium Prot Corrected Calcium Magnesium Total Bilirubin AST ALT Alkaline Phosphatase Total Protein Albumin Imaging: ITS Impressions Femur X-Ray 12/15/17 07:05 CONCLUSION: No fracture is identified. There is extensive soft tissue air in the right gluteal region and extending into the proximal and mid posterior thigh. The soft tissue air suggests an open wound. Pelvis X-Ray 12/15/17 07:05 CONCLUSION: No fracture is identified. However, there is extensive soft tissue air in the left gluteal region and left proximal thigh. Pelvis CT 12/15/17 07:52 CONCLUSION: 1. No fracture is identified. 2. Extensive subcutaneous and soft tissue gas bilaterally, left greater than right. It is most severe in the left gluteal region and extends into the proximal posterior thigh. The soft tissue air dissects through the gluteal musculature. There is adjacent subcutaneous edema. Foot X-Ray 12/18/17 00:00 CONCLUSION: Remote small avulsion fracture at the fifth toe. No acute bony abnormality. Venous Doppler Study 12/22/17 00:00 CONCLUSION: Extensive deep vein thrombosis of the left upper extremity. Chest X-Ray 12/26/17 06:00 CONCLUSION: Slight improvement in aeration Physical Exam: PHYSICAL EXAMINATION: GENERAL: Sedated. HEENT: Unable to assess fully. The sclerae has edema. Oropharynx intubated. NECK: Supple. No adenopathy or swelling. LUNGS: Decreased breath sounds. HEART: irregular S1 and S2. 1-2/6 systolic murmur at the left sternal border. ABDOMEN: Bowel sounds present, soft. BACK: Surgical wound post debridement across the lower back, buttock and thigh. Vac in place. EXTREMITIES: No clubbing, no cyanosis. 2+ edema. Left upper extremity has 2+ edema. abrasion with dry necrotic changes at left dorsal toes 2-4. SKIN: No diffuse rash. Scattered ecchymotic lesions. NEUROLOGIC: Unable to assess. PSYCHIATRIC: Unable to assess. Assessment and Plan - Plan IMPRESSION: 1. Necrotizing fasciitis of the back, buttock and thigh. 2. Septic shock. 3. Acute respiratory failure. 4. Chronic kidney disease. 5. Leukocytosis. WBC still elevated. 6. Left upper extremity DVT. Remains critically ill. RECOMMENDATIONS: 1. Monitor culture of wound. 2. Continue daptomycin which will cover VRE. 3. Continue Diflucan 4. Continue Zosyn. 5. Monitor the white blood cell count. 6. Monitor clinical status.
[2017-12-27] MEDS: Oral Hygiene Kit OROPHARYNG SCH ×4 (00:56→16:00)
[2017-12-27] MEDS: Piperacil/Tazo 4.5 GM Premix 4.5 GM/100 ML BAG IV.SIG SCH ×4 (00:56→18:00)
[2017-12-27] MEDS: Insulin NovoLIN Regular Correctional Sugar Inj SQ SCH ×6 (00:56→21:37)
[2017-12-27] MEDS: Albumin Human 25% Inj 100 ML IV.SIG SCH ×2 (02:54→13:22)
[2017-12-27] MEDS: Propofol 1000 mg/100 ml Inj 1,000 MG/100 ML BOTTLE IV.CONT PRN ×2 (02:55→13:21)
[2017-12-27] MEDS: fentaNYL 10 mcg/mL Premix Drip 2,500 MCG/250 ML BAG IV.SIG PRN ×2 (04:00→13:23)
[2017-12-27 05:00] LABS: Baso # (Auto) 0.1 th/mm3 (0.0-0.2); Eos # (Auto) 0.1 th/mm3 (0.0-0.4); Eos % (Auto) 0.9 % (0.0-4.0); Lymph # (Auto) 2.6 th/mm3 (1.0-4.8); Mean Corpuscular HGB Conc 33.4 % (32.0-36.0); Mean Corpuscular Hemoglobin 30.1 pg (27.0-34.0); Mean Platelet Volume 9.7 fL (7.0-11.0); Mono # (Auto) 0.5 th/mm3 (0.0-0.9); Mono % (Auto) 3.7 % (0.0-8.0); Neut # (Auto) 10.3 th/mm3 (1.8-7.7); Neut % (Auto) 75.4 % (16.0-70.0); Platelet Count 177 th/mm3 (150-450); Red Blood Count 2.14 mil/mm3 (4.00-5.30); White Blood Count 13.6 th/mm3 (4.0-11.0)
--- NOTE | 2017-12-27 05:10 | P.PNGS ---
Subjective Patient reports: no new complaints (intubated sedated wbc up) Physical Exam Vital signs: Vital Signs 12/26/17 07:00 12/26/17 07:07 12/26/17 07:15 Temperature Pulse Rate 101 H 101 H 98 H Respiratory Rate Blood Pressure 103/57 L Pulse Oximetry 93 L 93 L 94 L 12/26/17 07:22 12/26/17 07:30 12/26/17 07:37 Temperature Pulse Rate 97 H 97 H 95 H Respiratory Rate Blood Pressure 103/57 L 95/66 L Pulse Oximetry 94 L 94 L 94 L 12/26/17 07:45 12/26/17 07:52 12/26/17 08:00 Temperature 97.6 F Pulse Rate 95 H 102 H 98 H Respiratory Rate Blood Pressure 99/65 L Pulse Oximetry 94 L 93 L 94 L 12/26/17 08:07 12/26/17 08:15 12/26/17 08:22 Temperature Pulse Rate 93 H 94 H 95 H Respiratory Rate Blood Pressure 102/61 103/56 L Pulse Oximetry 94 L 93 L 94 L 12/26/17 08:30 12/26/17 08:37 12/26/17 08:45 Temperature Pulse Rate 93 H 92 H 96 H Respiratory Rate Blood Pressure 102/58 L Pulse Oximetry 94 L 93 L 93 L 12/26/17 08:52 12/26/17 09:00 12/26/17 09:07 Temperature Pulse Rate 94 H 93 H 101 H Respiratory Rate Blood Pressure 108/60 106/66 Pulse Oximetry 94 L 94 L 93 L 12/26/17 09:15 12/26/17 09:16 12/26/17 09:22 Temperature Pulse Rate 92 H 93 H Respiratory Rate 16 Blood Pressure 105/64 Pulse Oximetry 93 L 94 L 93 L 12/26/17 09:30 12/26/17 09:37 12/26/17 09:45 Temperature Pulse Rate 87 85 89 Respiratory Rate Blood Pressure 99/61 L Pulse Oximetry 94 L 95 94 L 12/26/17 09:52 12/26/17 10:00 12/26/17 10:07 Temperature Pulse Rate 84 85 85 Respiratory Rate Blood Pressure 89/64 L 87/65 L Pulse Oximetry 95 95 95 12/26/17 10:15 12/26/17 10:22 12/26/17 10:30 Temperature Pulse Rate 83 81 81 Respiratory Rate Blood Pressure 83/62 L Pulse Oximetry 95 95 95 12/26/17 10:37 12/26/17 10:45 12/26/17 10:52 Temperature Pulse Rate 80 82 77 Respiratory Rate Blood Pressure 85/62 L 85/61 L Pulse Oximetry 95 95 95 12/26/17 11:00 12/26/17 11:07 12/26/17 11:15 Temperature Pulse Rate 81 78 79 Respiratory Rate Blood Pressure 86/63 L Pulse Oximetry 95 95 95 12/26/17 11:22 12/26/17 11:30 12/26/17 11:37 Temperature Pulse Rate 87 81 80 Respiratory Rate Blood Pressure 94/64 L 88/60 L Pulse Oximetry 95 95 95 12/26/17 11:42 12/26/17 11:45 12/26/17 11:52 Temperature Pulse Rate 82 92 H Respiratory Rate 17 Blood Pressure 109/65 Pulse Oximetry 94 L 94 L 93 L 12/26/17 12:00 12/26/17 12:07 12/26/17 12:15 Temperature 97.7 F Pulse Rate 80 77 77 Respiratory Rate Blood Pressure 99/55 L Pulse Oximetry 94 L 95 95 12/26/17 12:22 12/26/17 12:30 12/26/17 13:47 Temperature Pulse Rate 86 81 Respiratory Rate Blood Pressure 102/58 L 105/52 L Pulse Oximetry 94 L 95 12/26/17 13:52 12/26/17 13:56 12/26/17 14:00 Temperature Pulse Rate 89 87 87 Respiratory Rate Blood Pressure 99/55 L 96/55 L Pulse Oximetry 94 L 95 95 12/26/17 14:07 12/26/17 14:15 12/26/17 14:22 Temperature Pulse Rate 84 88 84 Respiratory Rate Blood Pressure 91/62 L 94/54 L Pulse Oximetry 95 95 95 12/26/17 14:30 12/26/17 14:37 12/26/17 14:45 Temperature Pulse Rate 84 82 85 Respiratory Rate Blood Pressure 98/54 L Pulse Oximetry 95 95 95 12/26/17 14:52 12/26/17 15:00 12/26/17 15:07 Temperature Pulse Rate 85 84 82 Respiratory Rate Blood Pressure 99/55 L 87/57 L Pulse Oximetry 95 96 96 12/26/17 15:15 12/26/17 15:22 12/26/17 15:30 Temperature Pulse Rate 87 87 79 Respiratory Rate Blood Pressure 94/64 L Pulse Oximetry 95 94 L 96 12/26/17 15:37 12/26/17 15:45 12/26/17 15:52 Temperature Pulse Rate 80 83 79 Respiratory Rate Blood Pressure 95/61 L 95/57 L Pulse Oximetry 95 94 L 95 12/26/17 16:00 12/26/17 16:07 12/26/17 16:15 Temperature 97.7 F Pulse Rate 84 80 90 Respiratory Rate Blood Pressure 95/52 L Pulse Oximetry 94 L 96 93 L 12/26/17 16:22 12/26/17 16:30 12/26/17 16:37 Temperature Pulse Rate 97 H 94 H 96 H Respiratory Rate 17 Blood Pressure 125/58 L 111/56 L Pulse Oximetry 97 97 96 12/26/17 16:45 12/26/17 16:52 12/26/17 17:00 Temperature Pulse Rate 89 89 91 H Respiratory Rate Blood Pressure 113/56 L Pulse Oximetry 97 97 95 12/26/17 17:07 12/26/17 17:15 12/26/17 17:22 Temperature Pulse Rate 96 H 91 H 94 H Respiratory Rate Blood Pressure 111/56 L 106/55 L Pulse Oximetry 96 96 96 12/26/17 17:30 12/26/17 17:37 12/26/17 17:45 Temperature Pulse Rate 96 H 87 87 Respiratory Rate Blood Pressure 94/58 L Pulse Oximetry 96 97 97 12/26/17 17:52 12/26/17 18:00 12/26/17 18:07 Temperature Pulse Rate 86 83 88 Respiratory Rate Blood Pressure 89/57 L 99/58 L Pulse Oximetry 97 97 96 12/26/17 18:15 12/26/17 18:22 12/26/17 18:30 Temperature Pulse Rate 85 86 91 H Respiratory Rate Blood Pressure 92/52 L Pulse Oximetry 97 97 96 12/26/17 18:37 12/26/17 18:45 12/26/17 18:52 Temperature Pulse Rate 85 84 84 Respiratory Rate Blood Pressure 93/50 L 94/55 L Pulse Oximetry 97 97 97 12/26/17 19:00 12/26/17 19:07 12/26/17 19:15 Temperature Pulse Rate 81 82 80 Respiratory Rate Blood Pressure 94/51 L Pulse Oximetry 97 96 97 12/26/17 19:22 12/26/17 19:30 12/26/17 19:37 Temperature Pulse Rate 77 82 92 H Respiratory Rate Blood Pressure 93/50 L 101/53 L Pulse Oximetry 97 97 96 12/26/17 19:42 12/26/17 19:45 12/26/17 19:52 Temperature Pulse Rate 98 H 90 Respiratory Rate 17 Blood Pressure 97/53 L Pulse Oximetry 95 97 97 12/26/17 20:00 12/26/17 20:07 12/26/17 20:15 Temperature 97.8 F Pulse Rate 86 84 81 Respiratory Rate Blood Pressure 99/54 L Pulse Oximetry 97 96 96 12/26/17 20:22 12/26/17 20:30 12/26/17 20:37 Temperature Pulse Rate 85 82 81 Respiratory Rate Blood Pressure 93/50 L 93/50 L Pulse Oximetry 96 96 96 12/26/17 20:45 12/26/17 20:52 12/26/17 21:00 Temperature Pulse Rate 82 80 81 Respiratory Rate Blood Pressure 90/51 L Pulse Oximetry 96 97 96 12/26/17 21:07 12/26/17 21:15 12/26/17 21:22 Temperature Pulse Rate 86 79 91 H Respiratory Rate Blood Pressure 97/56 L 111/52 L Pulse Oximetry 97 96 97 12/26/17 21:30 12/26/17 21:37 12/26/17 21:45 Temperature Pulse Rate 91 H 86 93 H Respiratory Rate Blood Pressure 95/52 L Pulse Oximetry 97 97 97 12/26/17 21:52 12/26/17 22:00 12/26/17 22:07 Temperature Pulse Rate 93 H 87 88 Respiratory Rate Blood Pressure 92/54 L 93/51 L Pulse Oximetry 97 97 97 12/26/17 22:15 12/26/17 22:22 12/26/17 22:30 Temperature Pulse Rate 88 86 84 Respiratory Rate Blood Pressure 91/53 L Pulse Oximetry 97 97 97 12/26/17 22:37 12/26/17 22:41 12/26/17 22:45 Temperature Pulse Rate 83 83 94 H Respiratory Rate Blood Pressure 84/52 L 90/55 L Pulse Oximetry 98 97 97 12/26/17 22:52 12/26/17 23:00 12/26/17 23:07 Temperature Pulse Rate 89 84 83 Respiratory Rate Blood Pressure 90/55 L 82/51 L Pulse Oximetry 97 97 97 12/26/17 23:10 12/26/17 23:15 12/26/17 23:22 Temperature Pulse Rate 82 88 83 Respiratory Rate Blood Pressure 83/54 L 84/51 L Pulse Oximetry 97 97 97 12/26/17 23:30 12/26/17 23:37 12/26/17 23:40 Temperature Pulse Rate 78 77 76 Respiratory Rate Blood Pressure 81/53 L 87/53 L Pulse Oximetry 97 97 97 12/26/17 23:45 12/26/17 23:52 12/26/17 23:53 Temperature Pulse Rate 82 77 Respiratory Rate 17 Blood Pressure 85/53 L Pulse Oximetry 97 96 97 12/27/17 00:00 12/27/17 00:04 12/27/17 00:07 Temperature 98.5 F Pulse Rate 80 101 H 96 H Respiratory Rate Blood Pressure 151/63 H 127/67 Pulse Oximetry 97 98 96 12/27/17 00:15 12/27/17 00:22 12/27/17 00:30 Temperature Pulse Rate 92 H 93 H 99 H Respiratory Rate Blood Pressure 116/62 Pulse Oximetry 96 96 95 12/27/17 00:37 12/27/17 00:45 12/27/17 00:52 Temperature Pulse Rate 92 H 96 H 96 H Respiratory Rate Blood Pressure 117/60 112/58 L Pulse Oximetry 95 95 95 12/27/17 01:00 12/27/17 01:15 12/27/17 01:30 Temperature Pulse Rate 102 H 97 H 90 Respiratory Rate Blood Pressure 115/61 106/63 98/62 L Pulse Oximetry 95 95 94 L 12/27/17 01:45 12/27/17 02:00 12/27/17 02:15 Temperature Pulse Rate 93 H 93 H 98 H Respiratory Rate Blood Pressure 100/62 97/59 L 97/62 L Pulse Oximetry 94 L 95 94 L 12/27/17 02:30 12/27/17 02:45 12/27/17 03:00 Temperature Pulse Rate 91 H 98 H 87 Respiratory Rate Blood Pressure 97/59 L 105/58 L 97/56 L Pulse Oximetry 94 L 94 L 94 L 12/27/17 03:15 12/27/17 03:30 12/27/17 03:45 Temperature Pulse Rate 102 H 92 H 94 H Respiratory Rate Blood Pressure 110/53 L 102/50 L 103/58 L Pulse Oximetry 94 L 94 L 94 L 12/27/17 04:00 12/27/17 04:12 12/27/17 04:15 Temperature 98.3 F Pulse Rate 92 H 98 H Respiratory Rate 22 Blood Pressure 100/58 L 113/55 L Pulse Oximetry 94 L 94 L 94 L Intake & Output 12/26/17 12/26/17 12/27/17 06:59 18:59 06:59 Intake Total 2076 / 2076 2747 / 2747 1550 / 1550 Output Total 1050 / 1050 1575 / 1575 Balance 1026 / 1026 1172 / 1172 1550 / 1550 Weight 83.1 kg Intake: IV 1949 / 1950 2460 / 2460 1550 / 1550 D5W/LR Inj 1,000 ML @ 75 mls/hr 1000 / 1000 1000 / 1000 1000 / 1000 IV.CONT .[id number] RICARDO Rx#: [id number] Neosynephrine Inj 40 MG In D5W 500 / 500 Inj 496 ML @ 40 MCG/MIN 30 mls/ hr IV.CONT TITRATE PRN Rx#: [id number] Diprivan 1000 mg/100 ml Inj 1, 100 / 100 100 / 100 100 / 100 000 mg In 100 ml @ 5 MCG/KG/MIN 1.837 mls/hr IV.CONT TITRATE PRN Rx#:[id number] Pitressin Inj 40 UNIT In NS Inj 100 / 100 98 ML @ 0.04 UNITS/MIN 6 mls/ hr IV.CONT CONT RICARDO Rx#: [id number] Flexbumin 25% Inj 100 ML @ 60 100 / 100 100 / 100 mls/hr IV.SIG Q12H RICARDO Rx#: [id number] Calcium Chloride Inj 1 GM In NS 110 / 110 Inj 100 ML @ 110 mls/hr IV.SIG ONCE ONE Rx#:[id number] Cubicin Inj 400 MG In NS Inj 100 / 100 100 ML @ 200 mls/hr IV.SIG Q24H RICARDO Rx#:[id number] Diflucan 400 mg Premix Bag 200 200 / 200 ML @ 100 mls/hr IV.SIG Q24H RICARDO Rx#:[id number] Zosyn 4.5 GM Premix 4.5 gm In 100 / 100 300 / 300 100 / 100 100 ml @ 200 mls/hr IV.SIG Q6H RICARDO Rx#:[id number] KCl 40 mEq Premix Inj 40 meq In 200 / 200 100 ml @ 25 mls/hr IV.SIG Q2H PRN Rx#:[id number] fentaNYL 10 mcg/mL Premix Drip 250 / 250 250 / 250 250 / 250 2,500 mcg In 250 ml @ 50 MCG/HR 5 mls/hr IV.SIG TITRATE PRN Rx #:[id number] Oral 0 / 0 Tube Feeding 126 / 126 167 / 167 Water Bolus Amount 120 / 120 Output: Urine 450 / 450 Stool 75 / 75 Urine Amount (Catheter) 700 / 700 450 / 450 1 700 / 700 450 / 450 Gastric Drainage 0 / 0 Nasogastric Tube 0 / 0 Wound Drainage 350 / 350 Sacrum 350 / 350 Wound Vac Amount 600 / 600 Posterior Sacrum 600 / 600 Other: Mode Setting Posterior Sacrum Continuous Continuous Continuous Date of Last Bowel Movement 12/25/17 # Bowel Movements 1 # Incontinent Bowel Movements 1 - Routine Skin Exam Present: intact (vac good seal serosang) - Urinary Catheter Management 1 Cath placed during this visit: yes Reason for continuing: Severe pressure ulcer/wound Insertion date: 12/15/17 Results - Labs 12/26/17 05:00 12/26/17 05:00 Laboratory Results - last 24 hr 12/26/17 12/26/17 12/26/17 05:00 05:00 08:52 WBC 22.0 H RBC 2.74 L Hgb 8.3 L Hct 24.6 L MCV 89.7 MCH 30.3 MCHC 33.8 RDW 16.8 Plt Count 213 MPV 10.0 Prelim Diff (Auto) Slide review pending Neut % (Auto) 78.4 H Lymph % (Auto) 16.4 Waller % (Auto) 2.9 Eos % (Auto) 0.9 Baso % (Auto) 1.4 Neut # (Auto) 17.3 H Lymph # (Auto) 3.6 Waller # (Auto) 0.6 Eos # (Auto) 0.2 Baso # (Auto) 0.3 H WBC Differential Manual diff final Seg Neuts % (Manual) 78 H Band Neuts % (Manual) 5 Lymphocytes % (Manual) 13 Monocytes % (Manual) 3 Eosinophils % (Manual) 1 Abs Neuts (Manual) 18.3 H Differential Comment . Toxic Granulation 1+ H Toxic Vacuolation Present H Platelet Estimate Normal Platelet Morphology Enlarged H Spherocytes Occ H Sodium 132 L Potassium 3.2 L Chloride 100 Carbon Dioxide 21.3 Anion Gap 11 BUN 35 H Creatinine 0.96 Estimated GFR 61 L POC Glucose 167 H Random Glucose 181 H Calcium 7.0 L* Prot Corrected Calcium 7.4 L* Magnesium 1.3 L Total Bilirubin 0.6 AST 7 L ALT Less than 6 L Alkaline Phosphatase 301 H Total Protein 6.4 Albumin 1.0 L 12/26/17 12/26/17 12/26/17 11:49 17:26 19:37 WBC RBC Hgb Hct MCV MCH MCHC RDW Plt Count MPV Prelim Diff (Auto) Neut % (Auto) Lymph % (Auto) Waller % (Auto) Eos % (Auto) Baso % (Auto) Neut # (Auto) Lymph # (Auto) Waller # (Auto) Eos # (Auto) Baso # (Auto) WBC Differential Seg Neuts % (Manual) Band Neuts % (Manual) Lymphocytes % (Manual) Monocytes % (Manual) Eosinophils % (Manual) Abs Neuts (Manual) Differential Comment Toxic Granulation Toxic Vacuolation Platelet Estimate Platelet Morphology Spherocytes Sodium Potassium Chloride Carbon Dioxide Anion Gap BUN Creatinine Estimated GFR POC Glucose 151 H 122 H 128 H Random Glucose Calcium Prot Corrected Calcium Magnesium Total Bilirubin AST ALT Alkaline Phosphatase Total Protein Albumin 12/27/17 12/27/17 12/27/17 00:07 04:43 04:44 WBC RBC Hgb Hct MCV MCH MCHC RDW Plt Count MPV Prelim Diff (Auto) Neut % (Auto) Lymph % (Auto) Waller % (Auto) Eos % (Auto) Baso % (Auto) Neut # (Auto) Lymph # (Auto) Waller # (Auto) Eos # (Auto) Baso # (Auto) WBC Differential Seg Neuts % (Manual) Band Neuts % (Manual) Lymphocytes % (Manual) Monocytes % (Manual) Eosinophils % (Manual) Abs Neuts (Manual) Differential Comment Toxic Granulation Toxic Vacuolation Platelet Estimate Platelet Morphology Spherocytes Sodium Potassium Chloride Carbon Dioxide Anion Gap BUN Creatinine Estimated GFR POC Glucose 160 H 183 H 159 H Random Glucose Calcium Prot Corrected Calcium Magnesium Total Bilirubin AST ALT Alkaline Phosphatase Total Protein Albumin - Imaging Imaging: ITS Impressions Femur X-Ray 12/15/17 07:05 CONCLUSION: No fracture is identified. There is extensive soft tissue air in the right gluteal region and extending into the proximal and mid posterior thigh. The soft tissue air suggests an open wound. Pelvis X-Ray 12/15/17 07:05 CONCLUSION: No fracture is identified. However, there is extensive soft tissue air in the left gluteal region and left proximal thigh. Pelvis CT 12/15/17 07:52 CONCLUSION: 1. No fracture is identified. 2. Extensive subcutaneous and soft tissue gas bilaterally, left greater than right. It is most severe in the left gluteal region and extends into the proximal posterior thigh. The soft tissue air dissects through the gluteal musculature. There is adjacent subcutaneous edema. Foot X-Ray 12/18/17 00:00 CONCLUSION: Remote small avulsion fracture at the fifth toe. No acute bony abnormality. Venous Doppler Study 12/22/17 00:00 CONCLUSION: Extensive deep vein thrombosis of the left upper extremity. Chest X-Ray 12/26/17 06:00 CONCLUSION: Slight improvement in aeration Assessment and Plan - Assessment (1) Necrotizing fasciitis of pelvic region and thigh Code(s): M72.6 - Necrotizing fasciitis Status: Acute Plan: 52yo female with multiple medical comorbidities, s/p debridement of nec fasc -Remains critically ill -Continues to require pressor support -VAC change planned for 48-72hours -Continue TF -ID following , monitor labs
[2017-12-27 05:11] LABS: Hematocrit 19.3 % (35.0-46.0); Hemoglobin 6.4 gm/dL (11.6-15.3)
[2017-12-27 05:53] LABS: Calcium 7.4 mg/dL (8.5-10.1); Carbon Dioxide 22.4 meq/L (21.0-32.0); Potassium 3.5 meq/L (3.5-5.1)
[2017-12-27] MEDS ORDERED: Sodium Chlor 0.9% Inj 250 ML IV.SIG SCH ×2 (06:00)
[2017-12-27 06:09] LABS: Calcium-Albumin Corrected 7.9 mg/dL (8.5-10.1); Total Protein 6.1 g/dL (6.4-8.2)
[2017-12-27] MEDS: Dextrose 5%/Lactated Ringer's 1,000 ML IV.CONT SCH ×2 (06:12→12:21)
[2017-12-27 08:19] LABS: Lymphocytes 23 % (9-44); Metamyelocytes 1 % (0-1); Myelocytes 1 % (0-0)
[2017-12-27 08:20] LABS: Platelet Estimate Normal (Normal); Platelet Morphology Normal (Normal)
[2017-12-27] MEDS: Chlorhexidine 0.12% Oral Kit 15 ML UDC OROPHARYNG SCH ×2 (09:04→21:37)
[2017-12-27] MEDS: Senna/Docusate Sodium 8.6/50 MG Tablet PO SCH ×2 (09:17→21:37)
[2017-12-27] MEDS: Enoxaparin Inj 30 MG/0.3 ML Syringe SQ SCH (09:17)
[2017-12-27] MEDS: Famotidine PF Inj 20 MG/2 ML Vial IV.PUSH SCH ×2 (09:17→21:37)
--- NOTE | 2017-12-27 11:00 | P.PNCC ---
Subjective Subjective Remarks/Hospital Course: This 52-year-old woman with long-standing uncontrolled diabetes mellitus and severe peripheral arterial disease related to a long-term heavy smoking history was found down at her home and initial blood glucose was 610. Her lower back and buttocks was exquisitely tender and a mid line stage IV sacral decubitus was oozing purulent material and inflamed and the surrounding soft tissue. White count was not elevated but 90% neutrophils. Temperature 97 degrees. Moderately encephalopathic though conversant. X-rays revealed no fractures in the pelvis but CAT scan demonstrated extensive subcutaneous air emanating in both directions left and right from the mid sacral region. This is clearly necrotizing fasciitis or some other gas-forming infection and the woman is critically ill. She received vancomycin, Zosyn, and clindamycin antibiotic therapy as quickly as possible and was transferred to the ICU for ongoing resuscitation. Because of worsening hemodynamic stability she required intubation and mechanical ventilation followed by central line placement on arrival to the ICU. Insulin drip infusion was started in the emergency department and glucose had declined into the low 400s. She was not in ketoacidosis but lactic acid was elevated at 3.1. General surgery and orthopedic surgery were consulted for recommendations and it was felt that this woman was too unstable to tolerate an operative procedure immediately. We continue her ongoing resuscitation and trial in the ICU at this stage. 12/16: Following aggressive resuscitation yesterday for the treatment of severe hyperglycemia, septic shock, respiratory failure, metabolic acidosis, acute kidney injury, the patient went to the operating room with an extensive wide debridement bilateral gluteal and left thigh soft tissue and muscle. Primary antibiotic coverage at this point is vancomycin, cefepime, clindamycin. The patient started to make urine late yesterday afternoon and has continued to acceptable output since. Lactic acidosis is 2.0 this morning but metabolic acidosis persists despite bicarb drip. She remains on vasopressor support and hemodynamically unstable. 12/17: s/p debridement of large nec fasc wound. remains in shock today. also very hypoglycemic requiring multiple D50 amps overnight. 12/18: back in worsening shock. vasopressor support higher. required 2L crystalloid overnight and additional 1L and 500cc albumin today. ivc completely flat on bedside echo. LVEF hyperdynamic. no pericardial effusion. spoken with gen surg. plan to go back early to eval for worsening necrosis. fio2 also up to 100% and peep 10- hypoxic, likely early ARDS. 12/19: clinically doing better. still in shock on vasopressors, but requirements are lower and lactate cleared. Cr slowly uptrending. SVV still 19% today and appears to be volume responsive. gen surgery ordered 2 units prbc for falling hgb in the setting of blood loss with surgical intervention yesterday. fio2 improving. glycemic control also improving. 12/20: Markedly impaired oxygenation persists. Still requiring elevated end expiratory pressure. Nutritional support continues but she remains catabolic. It will be difficult to keep up with her nutritional needs. 12/21: Continued severe sepsis requiring vasopressor support and mechanical ventilation. Oxygenation remains impaired and smoldering metabolic acidosis persists. Despite hemodynamic instability the patient's only hope for survival is with infection source control through further debridement. Clearly a greatly increased risk however for any procedure. 12/22: Persistent septic shock course requiring vasopressor support and regular debridement. Good antibiotic coverage but she continues to require adjustment of ventilator, hemodynamic support drugs, antibiotics, intravenous fluids. Her nutritional status was quite depleted on arrival and continues to deteriorate despite adjuvant nutrition. 12/23: Patient continues septic course. She has developed venous clot throughout her left internal jugular subclavian and axillary vein system. Not a candidate for full anticoagulation because of need for frequent surgical debridement. We will pull out the catheter today and placing In the right subclavian route. 12/24 remains critically ill and septic remains on Rj-Synephrine at 50 mcg/kg/ min. WBC count increasing 20 6K today. Antibiotics have been changed by ID. Diflucan added for Talia UTI. Plan for OR today per surgery 12/25: Went to OR yesterday, s/p Incision, drainage with excisional debridement of back, buttock, thigh, and VAC change. Main septic White count increasing 31, 000 today, remains on pressors vasopressin and Rj-Synephrine. 12/26: Remains critical remains on vasopressin to maintain blood pressure and map above 65, currently off Rj-Synephrine. Remains severely fluid overloaded approximately 20 kg up. Despite pressor use will start IV diuretics to achieve negative fluid balance 12/27: Intubated sedated but more awake follows some commands. Hemoglobin down to 6.4, 2 g dropped, receiving 2 units of PRBC. No obvious bleeding noted. Currently had been weaned off the pressors. Or planned for tomorrow again Objective Vital Signs / I&O: Vital Signs 12/26/17 10:37 12/26/17 10:45 12/26/17 10:52 Temperature Pulse Rate 80 82 77 Respiratory Rate Blood Pressure 85/62 L 85/61 L Pulse Oximetry 95 95 95 12/26/17 11:00 12/26/17 11:07 12/26/17 11:15 Temperature Pulse Rate 81 78 79 Respiratory Rate Blood Pressure 86/63 L Pulse Oximetry 95 95 95 12/26/17 11:22 12/26/17 11:30 12/26/17 11:37 Temperature Pulse Rate 87 81 80 Respiratory Rate Blood Pressure 94/64 L 88/60 L Pulse Oximetry 95 95 95 12/26/17 11:42 12/26/17 11:45 12/26/17 11:52 Temperature Pulse Rate 82 92 H Respiratory Rate 17 Blood Pressure 109/65 Pulse Oximetry 94 L 94 L 93 L 12/26/17 12:00 12/26/17 12:07 12/26/17 12:15 Temperature 97.7 F Pulse Rate 80 77 77 Respiratory Rate Blood Pressure 99/55 L Pulse Oximetry 94 L 95 95 12/26/17 12:22 12/26/17 12:30 12/26/17 13:47 Temperature Pulse Rate 86 81 Respiratory Rate Blood Pressure 102/58 L 105/52 L Pulse Oximetry 94 L 95 12/26/17 13:52 12/26/17 13:56 12/26/17 14:00 Temperature Pulse Rate 89 87 87 Respiratory Rate Blood Pressure 99/55 L 96/55 L Pulse Oximetry 94 L 95 95 12/26/17 14:07 12/26/17 14:15 12/26/17 14:22 Temperature Pulse Rate 84 88 84 Respiratory Rate Blood Pressure 91/62 L 94/54 L Pulse Oximetry 95 95 95 12/26/17 14:30 12/26/17 14:37 12/26/17 14:45 Temperature Pulse Rate 84 82 85 Respiratory Rate Blood Pressure 98/54 L Pulse Oximetry 95 95 95 12/26/17 14:52 12/26/17 15:00 12/26/17 15:07 Temperature Pulse Rate 85 84 82 Respiratory Rate Blood Pressure 99/55 L 87/57 L Pulse Oximetry 95 96 96 12/26/17 15:15 12/26/17 15:22 12/26/17 15:30 Temperature Pulse Rate 87 87 79 Respiratory Rate Blood Pressure 94/64 L Pulse Oximetry 95 94 L 96 12/26/17 15:37 12/26/17 15:45 12/26/17 15:52 Temperature Pulse Rate 80 83 79 Respiratory Rate Blood Pressure 95/61 L 95/57 L Pulse Oximetry 95 94 L 95 12/26/17 16:00 12/26/17 16:07 12/26/17 16:15 Temperature 97.7 F Pulse Rate 84 80 90 Respiratory Rate Blood Pressure 95/52 L Pulse Oximetry 94 L 96 93 L 12/26/17 16:22 12/26/17 16:30 12/26/17 16:37 Temperature Pulse Rate 97 H 94 H 96 H Respiratory Rate 17 Blood Pressure 125/58 L 111/56 L Pulse Oximetry 97 97 96 12/26/17 16:45 12/26/17 16:52 12/26/17 17:00 Temperature Pulse Rate 89 89 91 H Respiratory Rate Blood Pressure 113/56 L Pulse Oximetry 97 97 95 12/26/17 17:07 12/26/17 17:15 12/26/17 17:22 Temperature Pulse Rate 96 H 91 H 94 H Respiratory Rate Blood Pressure 111/56 L 106/55 L Pulse Oximetry 96 96 96 12/26/17 17:30 12/26/17 17:37 12/26/17 17:45 Temperature Pulse Rate 96 H 87 87 Respiratory Rate Blood Pressure 94/58 L Pulse Oximetry 96 97 97 12/26/17 17:52 12/26/17 18:00 12/26/17 18:07 Temperature Pulse Rate 86 83 88 Respiratory Rate Blood Pressure 89/57 L 99/58 L Pulse Oximetry 97 97 96 12/26/17 18:15 12/26/17 18:22 12/26/17 18:30 Temperature Pulse Rate 85 86 91 H Respiratory Rate Blood Pressure 92/52 L Pulse Oximetry 97 97 96 12/26/17 18:37 12/26/17 18:45 12/26/17 18:52 Temperature Pulse Rate 85 84 84 Respiratory Rate Blood Pressure 93/50 L 94/55 L Pulse Oximetry 97 97 97 12/26/17 19:00 12/26/17 19:07 12/26/17 19:15 Temperature Pulse Rate 81 82 80 Respiratory Rate Blood Pressure 94/51 L Pulse Oximetry 97 96 97 12/26/17 19:22 12/26/17 19:30 12/26/17 19:37 Temperature Pulse Rate 77 82 92 H Respiratory Rate Blood Pressure 93/50 L 101/53 L Pulse Oximetry 97 97 96 12/26/17 19:42 12/26/17 19:45 12/26/17 19:52 Temperature Pulse Rate 98 H 90 Respiratory Rate 17 Blood Pressure 97/53 L Pulse Oximetry 95 97 97 12/26/17 20:00 12/26/17 20:07 12/26/17 20:15 Temperature 97.8 F Pulse Rate 86 84 81 Respiratory Rate Blood Pressure 99/54 L Pulse Oximetry 97 96 96 12/26/17 20:22 12/26/17 20:30 12/26/17 20:37 Temperature Pulse Rate 85 82 81 Respiratory Rate Blood Pressure 93/50 L 93/50 L Pulse Oximetry 96 96 96 12/26/17 20:45 12/26/17 20:52 12/26/17 21:00 Temperature Pulse Rate 82 80 81 Respiratory Rate Blood Pressure 90/51 L Pulse Oximetry 96 97 96 12/26/17 21:07 12/26/17 21:15 12/26/17 21:22 Temperature Pulse Rate 86 79 91 H Respiratory Rate Blood Pressure 97/56 L 111/52 L Pulse Oximetry 97 96 97 12/26/17 21:30 12/26/17 21:37 12/26/17 21:45 Temperature Pulse Rate 91 H 86 93 H Respiratory Rate Blood Pressure 95/52 L Pulse Oximetry 97 97 97 12/26/17 21:52 12/26/17 22:00 12/26/17 22:07 Temperature Pulse Rate 93 H 87 88 Respiratory Rate Blood Pressure 92/54 L 93/51 L Pulse Oximetry 97 97 97 12/26/17 22:15 12/26/17 22:22 12/26/17 22:30 Temperature Pulse Rate 88 86 84 Respiratory Rate Blood Pressure 91/53 L Pulse Oximetry 97 97 97 12/26/17 22:37 12/26/17 22:41 12/26/17 22:45 Temperature Pulse Rate 83 83 94 H Respiratory Rate Blood Pressure 84/52 L 90/55 L Pulse Oximetry 98 97 97 12/26/17 22:52 12/26/17 23:00 12/26/17 23:07 Temperature Pulse Rate 89 84 83 Respiratory Rate Blood Pressure 90/55 L 82/51 L Pulse Oximetry 97 97 97 12/26/17 23:10 12/26/17 23:15 12/26/17 23:22 Temperature Pulse Rate 82 88 83 Respiratory Rate Blood Pressure 83/54 L 84/51 L Pulse Oximetry 97 97 97 12/26/17 23:30 12/26/17 23:37 12/26/17 23:40 Temperature Pulse Rate 78 77 76 Respiratory Rate Blood Pressure 81/53 L 87/53 L Pulse Oximetry 97 97 97 12/26/17 23:45 12/26/17 23:52 12/26/17 23:53 Temperature Pulse Rate 82 77 Respiratory Rate 17 Blood Pressure 85/53 L Pulse Oximetry 97 96 97 12/27/17 00:00 12/27/17 00:04 12/27/17 00:07 Temperature 98.5 F Pulse Rate 80 101 H 96 H Respiratory Rate Blood Pressure 151/63 H 127/67 Pulse Oximetry 97 98 96 12/27/17 00:15 12/27/17 00:22 12/27/17 00:30 Temperature Pulse Rate 92 H 93 H 99 H Respiratory Rate Blood Pressure 116/62 Pulse Oximetry 96 96 95 12/27/17 00:37 12/27/17 00:45 12/27/17 00:52 Temperature Pulse Rate 92 H 96 H 96 H Respiratory Rate Blood Pressure 117/60 112/58 L Pulse Oximetry 95 95 95 12/27/17 01:00 12/27/17 01:15 12/27/17 01:30 Temperature Pulse Rate 102 H 97 H 90 Respiratory Rate Blood Pressure 115/61 106/63 98/62 L Pulse Oximetry 95 95 94 L 12/27/17 01:45 12/27/17 02:00 12/27/17 02:15 Temperature Pulse Rate 93 H 93 H 98 H Respiratory Rate Blood Pressure 100/62 97/59 L 97/62 L Pulse Oximetry 94 L 95 94 L 12/27/17 02:30 12/27/17 02:45 12/27/17 03:00 Temperature Pulse Rate 91 H 98 H 87 Respiratory Rate Blood Pressure 97/59 L 105/58 L 97/56 L Pulse Oximetry 94 L 94 L 94 L 12/27/17 03:15 12/27/17 03:30 12/27/17 03:45 Temperature Pulse Rate 102 H 92 H 94 H Respiratory Rate Blood Pressure 110/53 L 102/50 L 103/58 L Pulse Oximetry 94 L 94 L 94 L 12/27/17 04:00 12/27/17 04:12 12/27/17 04:15 Temperature 98.3 F Pulse Rate 92 H 98 H Respiratory Rate 22 Blood Pressure 100/58 L 113/55 L Pulse Oximetry 94 L 94 L 94 L 12/27/17 06:55 12/27/17 07:53 12/27/17 08:00 Temperature 98.0 F 74.8 F L Pulse Rate 96 H 95 H Respiratory Rate 16 17 Blood Pressure 106/65 114/65 Pulse Oximetry 96 96 96 12/27/17 08:15 12/27/17 08:30 12/27/17 08:45 Temperature 96.8 F L 96.8 F L 97.0 F L Pulse Rate 86 83 86 Respiratory Rate 17 Blood Pressure 117/63 117/60 117/58 L Pulse Oximetry 97 97 97 12/27/17 09:00 12/27/17 09:15 12/27/17 09:30 Temperature 97.0 F L 97.0 F L 97.2 F L Pulse Rate 90 84 96 H Respiratory Rate Blood Pressure 136/65 125/59 L 125/64 Pulse Oximetry 96 97 97 12/27/17 09:45 12/27/17 10:00 12/27/17 10:15 Temperature 97.2 F L 97.3 F L 97.3 F L Pulse Rate 91 H 88 84 Respiratory Rate Blood Pressure 122/59 L 115/56 L 112/55 L Pulse Oximetry 97 97 97 Intake & Output 12/26/17 12/27/17 12/27/17 18:59 06:59 18:59 Intake Total 2747 / 2747 1914 / 1914 800 / 800 Output Total 1575 / 1575 4000 / 4000 Balance 1172 / 1172 -2086 / -2086 800 / 800 Weight 79.8 kg Intake: IV 2460 / 2460 1650 / 1650 D5W/LR Inj 1,000 ML @ 75 mls/hr 1000 / 1000 1000 / 1000 IV.CONT .[id number] [facility] Rx#: [id number] Diprivan 1000 mg/100 ml Inj 1, 100 / 100 100 / 100 000 mg In 100 ml @ 5 MCG/KG/MIN 1.837 mls/hr IV.CONT TITRATE PRN Rx#:[id number] Pitressin Inj 40 UNIT In NS Inj 100 / 100 98 ML @ 0.04 UNITS/MIN 6 mls/ hr IV.CONT CONT [facility] Rx#: [id number] Flexbumin 25% Inj 100 ML @ 60 100 / 100 100 / 100 mls/hr IV.SIG Q12H [facility] Rx#: [id number] Calcium Chloride Inj 1 GM In NS 110 / 110 Inj 100 ML @ 110 mls/hr IV.SIG ONCE ONE Rx#:[id number] Cubicin Inj 400 MG In NS Inj 100 / 100 100 ML @ 200 mls/hr IV.SIG Q24H [facility] Rx#:[id number] Diflucan 400 mg Premix Bag 200 200 / 200 ML @ 100 mls/hr IV.SIG Q24H [facility] Rx#:[id number] Zosyn 4.5 GM Premix 4.5 gm In 300 / 300 200 / 200 100 ml @ 200 mls/hr IV.SIG Q6H [facility] Rx#:[id number] KCl 40 mEq Premix Inj 40 meq In 200 / 200 100 ml @ 25 mls/hr IV.SIG Q2H PRN Rx#:[id number] fentaNYL 10 mcg/mL Premix Drip 250 / 250 250 / 250 2,500 mcg In 250 ml @ 50 MCG/HR 5 mls/hr IV.SIG TITRATE PRN Rx #:[id number] Oral 0 / 0 Tube Feeding 167 / 167 264 / 264 Water Bolus Amount 120 / 120 Intake (Blood Product) Amt 0 / 0 800 / 800 Rbc As-3 Leukoreduced Unit 0 / 0 400 / 400 [id number] Rbc As-3 Leukoreduced Unit 400 / 400 [id number] Output: Urine 450 / 450 Stool 75 / 75 50 / 50 Urine Amount (Catheter) 450 / 450 2700 / 2700 1 450 / 450 2700 / 2700 Gastric Drainage 0 / 0 Nasogastric Tube 0 / 0 Wound Vac Amount 600 / 600 1250 / 1250 Posterior Sacrum 600 / 600 1250 / 1250 Other: Mode Setting Posterior Sacrum Continuous Continuous Continuous Date of Last Bowel Movement 12/25/17 12/27/17 # Bowel Movements 1 # Incontinent Bowel Movements 1 Result Diagrams: 12/27/17 04:30 12/27/17 04:30 Objective Remarks: General: Ill-appearing middle-aged woman, intubated and lightly sedated Head: Atraumatic, edentulous Neck: Supple, orotracheal intubation Lungs: equal chest rise. Scattered rhonchi but acceptable air movement. peep 8. Heart: tachycardic rate and regular rhythm. no JVD. Abdomen: Soft, no guarding, no peritoneal irritation. Back: Wound VAC in place over lower lumbar region there is a moderate erythema to the skin over the pelvis and buttocks. Extremities: Warm, adequately perfused, status post below-knee amputation right side, necrotic ulceration over several toes left foot. Generalized edema involving the left arm. Generalized anasarca Neurological: Intubated and sedated, moves 4 limbs to stimulation. Pupils responsive. Follows commands Assessment and Plan - Problem List (1) Septic shock with acute organ dysfunction due to anaerobic bacteria Code(s): A41.4 - Sepsis due to anaerobes; R65.21 - Severe sepsis with septic shock Status: Acute (2) Acute respiratory failure Code(s): J96.00 - Acute respiratory failure, unspecified whether with hypoxia or hypercapnia Status: Acute (3) Necrotizing fasciitis Code(s): M72.6 - Necrotizing fasciitis Status: Acute (4) Type 2 diabetes mellitus with hyperosmolar nonketotic hyperglycemia Code(s): E11.01 - Type 2 diabetes mellitus with hyperosmolarity with coma Status: Acute (5) MARIO (acute kidney injury) Code(s): N17.9 - Acute kidney failure, unspecified Status: Acute (6) Lactic acidosis Code(s): E87.2 - Acidosis Status: Acute - Assessment and Plan Plan: Assessment: 52yF with large necrotizing soft tissue infection of the lower back and sacrum complicated by septic shock and multiorgan dysfunction. Continued vasopressors, ivf, and antibiotics. plan for re-evaluation surgically sunday. remains critically ill in ongoing shock. Plan: Neurological Acute metabolic encephalopathy -Sedation with propofol, Analgesia with fentanyl -Encephalopathy largely due to sepsis and hyperglycemia -RASS goal -1. Following commands today Cardiovascular Septic Shock- improving Myocardial dysfunction secondary to septic shock - Vasopressin for goal map > 65 mmHg. Currently off - s/p 2 units of prbc for ongoing blood loss and anemia will help with intravascular volume expansion as well. - Receiving 2 units PRBC today 12/27/2017 for hemoglobin of 6.4 - Follow acid-base balance closely Respiratory Acute hypoxic and hypercarbic respiratory failure- persistent - Intubation and mechanical ventilation, Bronchodilators - HOB elevated, vent bundle - wean fio2 for goal spo2 > 90% - no weaning of mechanical ventilation until shock improves, OR completed - Trach in OR 12/28/17. Discussed with Dr. Paris Endocrinology Diabetes Severe hypoglycemia - Holding Levemir - Med scale SSI. - Follow potassium and magnesium closely Hematology/Infectious Disease Septic Shock Necrotizing soft tissue infection - Follow white count and platelet count closely. - Continue daptomycin and Zosyn. ID Stopped clindamycin. - Diflucan for fungal coverage. - OR per general surgery, next planned for I&D and wound VAC change on Sunday GI Acute protein calorie malnutrition- severe - prealbumin 5 on 12/18. severely malnourished. - daily bmp, mg, phos - Tube feeds infusing Acute kidney injury - Tristan required for hourly urine output - High risk for further deterioration in renal function - Needs Tristan at this time to protect perineal region HEME Left upper extremity DVT - DVT left internal jugular, subclavian, axillary and distal arm veins. - Cannot anticoagulate secondary to blood loss anemia requiring blood transfusion, frequent surgeries Prophylaxis - Pepcid for GI ulcer prophylaxis - SCDs for DVT prophylaxis - Hold chemical DVT prophylaxis until ongoing surgical decisions regarding further debridement are made Lines: Left subclavian central venous line placed 12/15, discontinued 12/23. Right subclavian central venous line placed 12/23 Overall impression: This woman is critically ill and in septic shock with necrotizing fasciitis emanating from a deep chronic sacral decubitus ulcer. She remains hemodynamically unstable and requiring vasopressor support. Peripheral perfusion and urine output is acceptable. Critical care 35 minutes D/W Dr. paris
--- NOTE | 2017-12-27 12:15 | P.PNID ---
Subjective Remarks: Sedated. On the ventilator. Afebrile. WBC is lower. Post debridement 12/18/2017, 12/24/2017. 52-year-old white female who was brought to the emergency department after she fell at home. The patient was noted to have profound weakness. She was evaluated in the emergency department and at that time had normal temperature and white blood cell count was also normal. She underwent CT scan of the abdomen and pelvis that showed extensive subcutaneous and soft tissue gas bilaterally with the left greater than right, most severe in the left gluteal region and extending into the proximal posterior thigh soft tissue and air-fluid dissecting through the gluteal musculature. The patient has a history of diabetes mellitus. Antibiotics: Fluconazole daptomycin zosyn Allergies/Adverse Reactions: Allergies No Known Allergies Allergy (Verified 12/15/17 07:54) Objective Vital Signs 12/26/17 12:15 12/26/17 12:22 12/26/17 12:30 Temperature Pulse Rate 77 86 81 Respiratory Rate Blood Pressure 102/58 L Pulse Oximetry 95 94 L 95 12/26/17 13:47 12/26/17 13:52 12/26/17 13:56 Temperature Pulse Rate 89 87 Respiratory Rate Blood Pressure 105/52 L 99/55 L 96/55 L Pulse Oximetry 94 L 95 12/26/17 14:00 12/26/17 14:07 12/26/17 14:15 Temperature Pulse Rate 87 84 88 Respiratory Rate Blood Pressure 91/62 L Pulse Oximetry 95 95 95 12/26/17 14:22 12/26/17 14:30 12/26/17 14:37 Temperature Pulse Rate 84 84 82 Respiratory Rate Blood Pressure 94/54 L 98/54 L Pulse Oximetry 95 95 95 12/26/17 14:45 12/26/17 14:52 12/26/17 15:00 Temperature Pulse Rate 85 85 84 Respiratory Rate Blood Pressure 99/55 L Pulse Oximetry 95 95 96 12/26/17 15:07 12/26/17 15:15 12/26/17 15:22 Temperature Pulse Rate 82 87 87 Respiratory Rate Blood Pressure 87/57 L 94/64 L Pulse Oximetry 96 95 94 L 12/26/17 15:30 12/26/17 15:37 12/26/17 15:45 Temperature Pulse Rate 79 80 83 Respiratory Rate Blood Pressure 95/61 L Pulse Oximetry 96 95 94 L 12/26/17 15:52 12/26/17 16:00 12/26/17 16:07 Temperature 97.7 F Pulse Rate 79 84 80 Respiratory Rate Blood Pressure 95/57 L 95/52 L Pulse Oximetry 95 94 L 96 12/26/17 16:15 12/26/17 16:22 12/26/17 16:30 Temperature Pulse Rate 90 97 H 94 H Respiratory Rate 17 Blood Pressure 125/58 L Pulse Oximetry 93 L 97 97 12/26/17 16:37 12/26/17 16:45 12/26/17 16:52 Temperature Pulse Rate 96 H 89 89 Respiratory Rate Blood Pressure 111/56 L 113/56 L Pulse Oximetry 96 97 97 12/26/17 17:00 12/26/17 17:07 12/26/17 17:15 Temperature Pulse Rate 91 H 96 H 91 H Respiratory Rate Blood Pressure 111/56 L Pulse Oximetry 95 96 96 12/26/17 17:22 12/26/17 17:30 12/26/17 17:37 Temperature Pulse Rate 94 H 96 H 87 Respiratory Rate Blood Pressure 106/55 L 94/58 L Pulse Oximetry 96 96 97 12/26/17 17:45 12/26/17 17:52 12/26/17 18:00 Temperature Pulse Rate 87 86 83 Respiratory Rate Blood Pressure 89/57 L Pulse Oximetry 97 97 97 12/26/17 18:07 12/26/17 18:15 12/26/17 18:22 Temperature Pulse Rate 88 85 86 Respiratory Rate Blood Pressure 99/58 L 92/52 L Pulse Oximetry 96 97 97 12/26/17 18:30 12/26/17 18:37 12/26/17 18:45 Temperature Pulse Rate 91 H 85 84 Respiratory Rate Blood Pressure 93/50 L Pulse Oximetry 96 97 97 12/26/17 18:52 12/26/17 19:00 12/26/17 19:07 Temperature Pulse Rate 84 81 82 Respiratory Rate Blood Pressure 94/55 L 94/51 L Pulse Oximetry 97 97 96 12/26/17 19:15 12/26/17 19:22 12/26/17 19:30 Temperature Pulse Rate 80 77 82 Respiratory Rate Blood Pressure 93/50 L Pulse Oximetry 97 97 97 12/26/17 19:37 12/26/17 19:42 12/26/17 19:45 Temperature Pulse Rate 92 H 98 H Respiratory Rate 17 Blood Pressure 101/53 L Pulse Oximetry 96 95 97 12/26/17 19:52 12/26/17 20:00 12/26/17 20:07 Temperature 97.8 F Pulse Rate 90 86 84 Respiratory Rate Blood Pressure 97/53 L 99/54 L Pulse Oximetry 97 97 96 12/26/17 20:15 12/26/17 20:22 12/26/17 20:30 Temperature Pulse Rate 81 85 82 Respiratory Rate Blood Pressure 93/50 L Pulse Oximetry 96 96 96 12/26/17 20:37 12/26/17 20:45 12/26/17 20:52 Temperature Pulse Rate 81 82 80 Respiratory Rate Blood Pressure 93/50 L 90/51 L Pulse Oximetry 96 96 97 12/26/17 21:00 12/26/17 21:07 12/26/17 21:15 Temperature Pulse Rate 81 86 79 Respiratory Rate Blood Pressure 97/56 L Pulse Oximetry 96 97 96 12/26/17 21:22 12/26/17 21:30 12/26/17 21:37 Temperature Pulse Rate 91 H 91 H 86 Respiratory Rate Blood Pressure 111/52 L 95/52 L Pulse Oximetry 97 97 97 12/26/17 21:45 12/26/17 21:52 12/26/17 22:00 Temperature Pulse Rate 93 H 93 H 87 Respiratory Rate Blood Pressure 92/54 L Pulse Oximetry 97 97 97 12/26/17 22:07 12/26/17 22:15 12/26/17 22:22 Temperature Pulse Rate 88 88 86 Respiratory Rate Blood Pressure 93/51 L 91/53 L Pulse Oximetry 97 97 97 12/26/17 22:30 12/26/17 22:37 12/26/17 22:41 Temperature Pulse Rate 84 83 83 Respiratory Rate Blood Pressure 84/52 L 90/55 L Pulse Oximetry 97 98 97 12/26/17 22:45 12/26/17 22:52 12/26/17 23:00 Temperature Pulse Rate 94 H 89 84 Respiratory Rate Blood Pressure 90/55 L Pulse Oximetry 97 97 97 12/26/17 23:07 12/26/17 23:10 12/26/17 23:15 Temperature Pulse Rate 83 82 88 Respiratory Rate Blood Pressure 82/51 L 83/54 L Pulse Oximetry 97 97 97 12/26/17 23:22 12/26/17 23:30 12/26/17 23:37 Temperature Pulse Rate 83 78 77 Respiratory Rate Blood Pressure 84/51 L 81/53 L Pulse Oximetry 97 97 97 12/26/17 23:40 12/26/17 23:45 12/26/17 23:52 Temperature Pulse Rate 76 82 77 Respiratory Rate Blood Pressure 87/53 L 85/53 L Pulse Oximetry 97 97 96 12/26/17 23:53 12/27/17 00:00 12/27/17 00:04 Temperature 98.5 F Pulse Rate 80 101 H Respiratory Rate 17 Blood Pressure 151/63 H Pulse Oximetry 97 97 98 12/27/17 00:07 12/27/17 00:15 12/27/17 00:22 Temperature Pulse Rate 96 H 92 H 93 H Respiratory Rate Blood Pressure 127/67 116/62 Pulse Oximetry 96 96 96 12/27/17 00:30 12/27/17 00:37 12/27/17 00:45 Temperature Pulse Rate 99 H 92 H 96 H Respiratory Rate Blood Pressure 117/60 Pulse Oximetry 95 95 95 12/27/17 00:52 12/27/17 01:00 12/27/17 01:15 Temperature Pulse Rate 96 H 102 H 97 H Respiratory Rate Blood Pressure 112/58 L 115/61 106/63 Pulse Oximetry 95 95 95 12/27/17 01:30 12/27/17 01:45 12/27/17 02:00 Temperature Pulse Rate 90 93 H 93 H Respiratory Rate Blood Pressure 98/62 L 100/62 97/59 L Pulse Oximetry 94 L 94 L 95 12/27/17 02:15 12/27/17 02:30 12/27/17 02:45 Temperature Pulse Rate 98 H 91 H 98 H Respiratory Rate Blood Pressure 97/62 L 97/59 L 105/58 L Pulse Oximetry 94 L 94 L 94 L 12/27/17 03:00 12/27/17 03:15 12/27/17 03:30 Temperature Pulse Rate 87 102 H 92 H Respiratory Rate Blood Pressure 97/56 L 110/53 L 102/50 L Pulse Oximetry 94 L 94 L 94 L 12/27/17 03:45 12/27/17 04:00 12/27/17 04:12 Temperature 98.3 F Pulse Rate 94 H 92 H Respiratory Rate 22 Blood Pressure 103/58 L 100/58 L Pulse Oximetry 94 L 94 L 94 L 12/27/17 04:15 12/27/17 06:55 12/27/17 07:53 Temperature 98.0 F Pulse Rate 98 H 96 H Respiratory Rate 16 17 Blood Pressure 113/55 L 106/65 Pulse Oximetry 94 L 96 96 12/27/17 08:00 12/27/17 08:15 12/27/17 08:30 Temperature 74.8 F L 96.8 F L 96.8 F L Pulse Rate 95 H 86 83 Respiratory Rate Blood Pressure 114/65 117/63 117/60 Pulse Oximetry 96 97 97 12/27/17 08:45 12/27/17 09:00 12/27/17 09:15 Temperature 97.0 F L 97.0 F L 97.0 F L Pulse Rate 86 90 84 Respiratory Rate 17 Blood Pressure 117/58 L 136/65 125/59 L Pulse Oximetry 97 96 97 12/27/17 09:30 12/27/17 09:45 12/27/17 10:00 Temperature 97.2 F L 97.2 F L 97.3 F L Pulse Rate 96 H 91 H 88 Respiratory Rate Blood Pressure 125/64 122/59 L 115/56 L Pulse Oximetry 97 97 97 12/27/17 10:15 Temperature 97.3 F L Pulse Rate 84 Respiratory Rate Blood Pressure 112/55 L Pulse Oximetry 97 Intake & Output 12/26/17 12/27/17 12/27/17 18:59 06:59 18:59 Intake Total 2747 / 2747 1914 / 1914 2300 / 2300 Output Total 1575 / 1575 4000 / 4000 Balance 1172 / 1172 -2086 / -2086 2300 / 2300 Weight 79.8 kg Intake: IV 2460 / 2460 1650 / 1650 1500 / 1500 D5W/LR Inj 1,000 ML @ 75 mls/hr 1000 / 1000 1000 / 1000 1000 / 1000 IV.CONT .[id number] [facility] Rx#: [id number] Diprivan 1000 mg/100 ml Inj 1, 100 / 100 100 / 100 000 mg In 100 ml @ 5 MCG/KG/MIN 1.837 mls/hr IV.CONT TITRATE PRN Rx#:[id number] Pitressin Inj 40 UNIT In NS Inj 100 / 100 98 ML @ 0.04 UNITS/MIN 6 mls/ hr IV.CONT CONT [facility] Rx#: [id number] Flexbumin 25% Inj 100 ML @ 60 100 / 100 100 / 100 mls/hr IV.SIG Q12H [facility] Rx#: [id number] Calcium Chloride Inj 1 GM In NS 110 / 110 Inj 100 ML @ 110 mls/hr IV.SIG ONCE ONE Rx#:[id number] Cubicin Inj 400 MG In NS Inj 100 / 100 100 ML @ 200 mls/hr IV.SIG Q24H [facility] Rx#:[id number] Diflucan 400 mg Premix Bag 200 200 / 200 ML @ 100 mls/hr IV.SIG Q24H [facility] Rx#:[id number] Zosyn 4.5 GM Premix 4.5 gm In 300 / 300 200 / 200 100 ml @ 200 mls/hr IV.SIG Q6H [facility] Rx#:[id number] KCl 40 mEq Premix Inj 40 meq In 200 / 200 100 ml @ 25 mls/hr IV.SIG Q2H PRN Rx#:[id number] NS Inj 250 ML @ 15 mls/hr IV. 500 / 500 SIG ONCE [facility] Rx#:[id number] fentaNYL 10 mcg/mL Premix Drip 250 / 250 250 / 250 2,500 mcg In 250 ml @ 50 MCG/HR 5 mls/hr IV.SIG TITRATE PRN Rx #:[id number] Oral 0 / 0 Tube Feeding 167 / 167 264 / 264 Water Bolus Amount 120 / 120 Intake (Blood Product) Amt 0 / 0 800 / 800 Rbc As-3 Leukoreduced Unit 0 / 0 400 / 400 [id number] Rbc As-3 Leukoreduced Unit 400 / 400 [id number] Output: Urine 450 / 450 Stool 75 / 75 50 / 50 Urine Amount (Catheter) 450 / 450 2700 / 2700 1 450 / 450 2700 / 2700 Gastric Drainage 0 / 0 Nasogastric Tube 0 / 0 Wound Vac Amount 600 / 600 1250 / 1250 Posterior Sacrum 600 / 600 1250 / 1250 Other: Mode Setting Posterior Sacrum Continuous Continuous Continuous Date of Last Bowel Movement 12/25/17 12/27/17 # Bowel Movements 1 # Incontinent Bowel Movements 1 12/24/17 12:20 Tissue - Buttock Acid Fast Bacilli Smear - Final No acid fast bacilli seen 12/24/17 12:20 Tissue - Buttock Mycobacterial Culture - Pending 12/24/17 12:20 Tissue - Buttock Fungal Smear - Final Rare budding yeast 12/24/17 12:20 Tissue - Buttock Fungal Culture - Preliminary Yeast - ID to follow 12/24/17 12:20 Tissue - Buttock Gram Stain - Final 12/24/17 12:20 Tissue - Buttock Wound Culture - Preliminary Talia albicans Lab - Hematology Results 12/26/17 12/27/17 05:00 04:30 WBC 22.0 H 13.6 H RBC 2.74 L 2.14 L Hgb 8.3 L 6.4 L* Hct 24.6 L 19.3 L* MCV 89.7 90.0 MCH 30.3 30.1 MCHC 33.8 33.4 RDW 16.8 17.0 Plt Count 213 177 MPV 10.0 9.7 Prelim Diff (Auto) Slide review pending Slide review pending Neut % (Auto) 78.4 H 75.4 H Lymph % (Auto) 16.4 19.0 [place] % (Auto) 2.9 3.7 Eos % (Auto) 0.9 0.9 Baso % (Auto) 1.4 1.0 Neut # (Auto) 17.3 H 10.3 H Lymph # (Auto) 3.6 2.6 [place] # (Auto) 0.6 0.5 Eos # (Auto) 0.2 0.1 Baso # (Auto) 0.3 H 0.1 WBC Differential Manual diff final Manual diff final Seg Neuts % (Manual) 78 H 67 Band Neuts % (Manual) 5 8 H Lymphocytes % (Manual) 13 23 Monocytes % (Manual) 3 Eosinophils % (Manual) 1 Metamyelocytes % (Man) 1 Myelocytes % (Man) 1 H Abs Neuts (Manual) 18.3 H 10.5 H Differential Comment . . Toxic Granulation 1+ H Toxic Vacuolation Present H Platelet Estimate Normal Normal Platelet Morphology Enlarged H Normal Spherocytes Occ H Lab - Chemistry Results 12/25/17 12/25/17 12/25/17 12:58 16:01 20:58 Sodium Potassium Chloride Carbon Dioxide Anion Gap BUN Creatinine Estimated GFR POC Glucose 196 H 144 H 156 H Random Glucose Calcium Prot Corrected Calcium Magnesium Total Bilirubin AST ALT Alkaline Phosphatase Total Protein Albumin 12/26/17 12/26/17 12/26/17 00:09 04:30 04:34 Sodium Potassium Chloride Carbon Dioxide Anion Gap BUN Creatinine Estimated GFR POC Glucose 144 H 188 H 175 H Random Glucose Calcium Prot Corrected Calcium Magnesium Total Bilirubin AST ALT Alkaline Phosphatase Total Protein Albumin 12/26/17 12/26/17 12/26/17 05:00 08:52 11:49 Sodium 132 L Potassium 3.2 L Chloride 100 Carbon Dioxide 21.3 Anion Gap 11 BUN 35 H Creatinine 0.96 Estimated GFR 61 L POC Glucose 167 H 151 H Random Glucose 181 H Calcium 7.0 L* Prot Corrected Calcium 7.4 L* Magnesium 1.3 L Total Bilirubin 0.6 AST 7 L ALT Less than 6 L Alkaline Phosphatase 301 H Total Protein 6.4 Albumin 1.0 L 12/26/17 12/26/17 12/27/17 17:26 19:37 00:07 Sodium Potassium Chloride Carbon Dioxide Anion Gap BUN Creatinine Estimated GFR POC Glucose 122 H 128 H 160 H Random Glucose Calcium Prot Corrected Calcium Magnesium Total Bilirubin AST ALT Alkaline Phosphatase Total Protein Albumin 12/27/17 12/27/17 12/27/17 04:30 04:43 04:44 Sodium 135 L Potassium 3.5 Chloride 102 Carbon Dioxide 22.4 Anion Gap 11 BUN 33 H Creatinine 1.00 Estimated GFR 58 L POC Glucose 183 H 159 H Random Glucose 144 H Calcium 7.4 L* Prot Corrected Calcium 7.9 L D Magnesium Total Bilirubin AST ALT Alkaline Phosphatase Total Protein 6.1 L Albumin 12/27/17 09:28 Sodium Potassium Chloride Carbon Dioxide Anion Gap BUN Creatinine Estimated GFR POC Glucose 153 H Random Glucose Calcium Prot Corrected Calcium Magnesium Total Bilirubin AST ALT Alkaline Phosphatase Total Protein Albumin Imaging: ITS Impressions Femur X-Ray 12/15/17 07:05 CONCLUSION: No fracture is identified. There is extensive soft tissue air in the right gluteal region and extending into the proximal and mid posterior thigh. The soft tissue air suggests an open wound. Pelvis X-Ray 12/15/17 07:05 CONCLUSION: No fracture is identified. However, there is extensive soft tissue air in the left gluteal region and left proximal thigh. Pelvis CT 12/15/17 07:52 CONCLUSION: 1. No fracture is identified. 2. Extensive subcutaneous and soft tissue gas bilaterally, left greater than right. It is most severe in the left gluteal region and extends into the proximal posterior thigh. The soft tissue air dissects through the gluteal musculature. There is adjacent subcutaneous edema. Foot X-Ray 12/18/17 00:00 CONCLUSION: Remote small avulsion fracture at the fifth toe. No acute bony abnormality. Venous Doppler Study 12/22/17 00:00 CONCLUSION: Extensive deep vein thrombosis of the left upper extremity. Chest X-Ray 12/26/17 06:00 CONCLUSION: Slight improvement in aeration Physical Exam: PHYSICAL EXAMINATION: GENERAL: Sedated. HEENT: Unable to assess fully. Oropharynx intubated. NECK: Supple. No adenopathy or swelling. LUNGS: Breath sounds decreased. HEART: irregular S1 and S2. 1-2/6 systolic murmur at the left sternal border. ABDOMEN: Bowel sounds present, soft. BACK: Surgical wound post debridement across the lower back, buttock and thigh. Vac in place. EXTREMITIES: No clubbing, no cyanosis. Left upper extremity has 2+ edema. abrasion with dry necrotic changes at left dorsal toes 2-4. SKIN: No diffuse rash. Scattered ecchymotic lesions. NEUROLOGIC: Unable to assess. PSYCHIATRIC: Unable to assess. Assessment and Plan - Plan IMPRESSION: 1. Necrotizing fasciitis of the back, buttock and thigh. 2. Septic shock. 3. Acute respiratory failure. 4. Chronic kidney disease. 5. Leukocytosis. WBC still elevated. 6. Left upper extremity DVT. Remains critically ill. RECOMMENDATIONS: 1. Monitor culture of wound. 2. Continue daptomycin which will cover VRE. 3. Continue Diflucan 4. Continue Zosyn. 5. Monitor the white blood cell count. 6. Monitor clinical status.
[2017-12-27] MEDS: DAPTOmycin Inj 400 MG in Sodium Chlor 0.9% Inj 100 ML IV.SIG SCH (13:22)
--- NOTE | 2017-12-27 13:55 | P.PNGS ---
Subjective Interval history: Intubated; Eyes open Physical Exam Vital signs: Vital Signs 12/26/17 13:56 12/26/17 14:00 12/26/17 14:07 Temperature Pulse Rate 87 87 84 Respiratory Rate Blood Pressure 96/55 L 91/62 L Pulse Oximetry 95 95 95 12/26/17 14:15 12/26/17 14:22 12/26/17 14:30 Temperature Pulse Rate 88 84 84 Respiratory Rate Blood Pressure 94/54 L Pulse Oximetry 95 95 95 12/26/17 14:37 12/26/17 14:45 12/26/17 14:52 Temperature Pulse Rate 82 85 85 Respiratory Rate Blood Pressure 98/54 L 99/55 L Pulse Oximetry 95 95 95 12/26/17 15:00 12/26/17 15:07 12/26/17 15:15 Temperature Pulse Rate 84 82 87 Respiratory Rate Blood Pressure 87/57 L Pulse Oximetry 96 96 95 12/26/17 15:22 12/26/17 15:30 12/26/17 15:37 Temperature Pulse Rate 87 79 80 Respiratory Rate Blood Pressure 94/64 L 95/61 L Pulse Oximetry 94 L 96 95 12/26/17 15:45 12/26/17 15:52 12/26/17 16:00 Temperature 97.7 F Pulse Rate 83 79 84 Respiratory Rate Blood Pressure 95/57 L Pulse Oximetry 94 L 95 94 L 12/26/17 16:07 12/26/17 16:15 12/26/17 16:22 Temperature Pulse Rate 80 90 97 H Respiratory Rate 17 Blood Pressure 95/52 L 125/58 L Pulse Oximetry 96 93 L 97 12/26/17 16:30 12/26/17 16:37 12/26/17 16:45 Temperature Pulse Rate 94 H 96 H 89 Respiratory Rate Blood Pressure 111/56 L Pulse Oximetry 97 96 97 12/26/17 16:52 12/26/17 17:00 12/26/17 17:07 Temperature Pulse Rate 89 91 H 96 H Respiratory Rate Blood Pressure 113/56 L 111/56 L Pulse Oximetry 97 95 96 12/26/17 17:15 12/26/17 17:22 12/26/17 17:30 Temperature Pulse Rate 91 H 94 H 96 H Respiratory Rate Blood Pressure 106/55 L Pulse Oximetry 96 96 96 12/26/17 17:37 12/26/17 17:45 12/26/17 17:52 Temperature Pulse Rate 87 87 86 Respiratory Rate Blood Pressure 94/58 L 89/57 L Pulse Oximetry 97 97 97 12/26/17 18:00 12/26/17 18:07 12/26/17 18:15 Temperature Pulse Rate 83 88 85 Respiratory Rate Blood Pressure 99/58 L Pulse Oximetry 97 96 97 12/26/17 18:22 12/26/17 18:30 12/26/17 18:37 Temperature Pulse Rate 86 91 H 85 Respiratory Rate Blood Pressure 92/52 L 93/50 L Pulse Oximetry 97 96 97 12/26/17 18:45 12/26/17 18:52 12/26/17 19:00 Temperature Pulse Rate 84 84 81 Respiratory Rate Blood Pressure 94/55 L Pulse Oximetry 97 97 97 12/26/17 19:07 12/26/17 19:15 12/26/17 19:22 Temperature Pulse Rate 82 80 77 Respiratory Rate Blood Pressure 94/51 L 93/50 L Pulse Oximetry 96 97 97 12/26/17 19:30 12/26/17 19:37 12/26/17 19:42 Temperature Pulse Rate 82 92 H Respiratory Rate 17 Blood Pressure 101/53 L Pulse Oximetry 97 96 95 12/26/17 19:45 12/26/17 19:52 12/26/17 20:00 Temperature 97.8 F Pulse Rate 98 H 90 86 Respiratory Rate Blood Pressure 97/53 L Pulse Oximetry 97 97 97 12/26/17 20:07 12/26/17 20:15 12/26/17 20:22 Temperature Pulse Rate 84 81 85 Respiratory Rate Blood Pressure 99/54 L 93/50 L Pulse Oximetry 96 96 96 12/26/17 20:30 12/26/17 20:37 12/26/17 20:45 Temperature Pulse Rate 82 81 82 Respiratory Rate Blood Pressure 93/50 L Pulse Oximetry 96 96 96 12/26/17 20:52 12/26/17 21:00 12/26/17 21:07 Temperature Pulse Rate 80 81 86 Respiratory Rate Blood Pressure 90/51 L 97/56 L Pulse Oximetry 97 96 97 12/26/17 21:15 12/26/17 21:22 12/26/17 21:30 Temperature Pulse Rate 79 91 H 91 H Respiratory Rate Blood Pressure 111/52 L Pulse Oximetry 96 97 97 12/26/17 21:37 12/26/17 21:45 12/26/17 21:52 Temperature Pulse Rate 86 93 H 93 H Respiratory Rate Blood Pressure 95/52 L 92/54 L Pulse Oximetry 97 97 97 12/26/17 22:00 12/26/17 22:07 12/26/17 22:15 Temperature Pulse Rate 87 88 88 Respiratory Rate Blood Pressure 93/51 L Pulse Oximetry 97 97 97 12/26/17 22:22 12/26/17 22:30 12/26/17 22:37 Temperature Pulse Rate 86 84 83 Respiratory Rate Blood Pressure 91/53 L 84/52 L Pulse Oximetry 97 97 98 12/26/17 22:41 12/26/17 22:45 12/26/17 22:52 Temperature Pulse Rate 83 94 H 89 Respiratory Rate Blood Pressure 90/55 L 90/55 L Pulse Oximetry 97 97 97 12/26/17 23:00 12/26/17 23:07 12/26/17 23:10 Temperature Pulse Rate 84 83 82 Respiratory Rate Blood Pressure 82/51 L 83/54 L Pulse Oximetry 97 97 97 12/26/17 23:15 12/26/17 23:22 12/26/17 23:30 Temperature Pulse Rate 88 83 78 Respiratory Rate Blood Pressure 84/51 L Pulse Oximetry 97 97 97 12/26/17 23:37 12/26/17 23:40 12/26/17 23:45 Temperature Pulse Rate 77 76 82 Respiratory Rate Blood Pressure 81/53 L 87/53 L Pulse Oximetry 97 97 97 12/26/17 23:52 12/26/17 23:53 12/27/17 00:00 Temperature 98.5 F Pulse Rate 77 80 Respiratory Rate 17 Blood Pressure 85/53 L Pulse Oximetry 96 97 97 12/27/17 00:04 12/27/17 00:07 12/27/17 00:15 Temperature Pulse Rate 101 H 96 H 92 H Respiratory Rate Blood Pressure 151/63 H 127/67 Pulse Oximetry 98 96 96 12/27/17 00:22 12/27/17 00:30 12/27/17 00:37 Temperature Pulse Rate 93 H 99 H 92 H Respiratory Rate Blood Pressure 116/62 117/60 Pulse Oximetry 96 95 95 12/27/17 00:45 12/27/17 00:52 12/27/17 01:00 Temperature Pulse Rate 96 H 96 H 102 H Respiratory Rate Blood Pressure 112/58 L 115/61 Pulse Oximetry 95 95 95 12/27/17 01:15 12/27/17 01:30 12/27/17 01:45 Temperature Pulse Rate 97 H 90 93 H Respiratory Rate Blood Pressure 106/63 98/62 L 100/62 Pulse Oximetry 95 94 L 94 L 12/27/17 02:00 12/27/17 02:15 12/27/17 02:30 Temperature Pulse Rate 93 H 98 H 91 H Respiratory Rate Blood Pressure 97/59 L 97/62 L 97/59 L Pulse Oximetry 95 94 L 94 L 12/27/17 02:45 12/27/17 03:00 12/27/17 03:15 Temperature Pulse Rate 98 H 87 102 H Respiratory Rate Blood Pressure 105/58 L 97/56 L 110/53 L Pulse Oximetry 94 L 94 L 94 L 12/27/17 03:30 12/27/17 03:45 12/27/17 04:00 Temperature 98.3 F Pulse Rate 92 H 94 H 92 H Respiratory Rate Blood Pressure 102/50 L 103/58 L 100/58 L Pulse Oximetry 94 L 94 L 94 L 12/27/17 04:12 12/27/17 04:15 12/27/17 06:55 Temperature 98.0 F Pulse Rate 98 H 96 H Respiratory Rate 22 16 Blood Pressure 113/55 L 106/65 Pulse Oximetry 94 L 94 L 96 12/27/17 07:53 12/27/17 08:00 12/27/17 08:15 Temperature 74.8 F L 96.8 F L Pulse Rate 95 H 86 Respiratory Rate 17 Blood Pressure 114/65 117/63 Pulse Oximetry 96 96 97 12/27/17 08:30 12/27/17 08:45 12/27/17 09:00 Temperature 96.8 F L 97.0 F L 97.0 F L Pulse Rate 83 86 90 Respiratory Rate 17 Blood Pressure 117/60 117/58 L 136/65 Pulse Oximetry 97 97 96 12/27/17 09:15 12/27/17 09:30 12/27/17 09:45 Temperature 97.0 F L 97.2 F L 97.2 F L Pulse Rate 84 96 H 91 H Respiratory Rate Blood Pressure 125/59 L 125/64 122/59 L Pulse Oximetry 97 97 97 12/27/17 10:00 12/27/17 10:15 12/27/17 12:30 Temperature 97.3 F L 97.3 F L Pulse Rate 88 84 Respiratory Rate 17 Blood Pressure 115/56 L 112/55 L Pulse Oximetry 97 97 96 Intake & Output 12/26/17 12/27/17 12/27/17 18:59 06:59 18:59 Intake Total 2747 / 2747 1914 / 1914 2650 / 2650 Output Total 1575 / 1575 4000 / 4000 Balance 1172 / 1172 -2086 / -2086 2650 / 2650 Weight 79.8 kg Intake: IV 2460 / 2460 1650 / 1650 1850 / 1850 D5W/LR Inj 1,000 ML @ 75 mls/hr 1000 / 1000 1000 / 1000 1000 / 1000 IV.CONT .[id number] RICARDO Rx#: [id number] Diprivan 1000 mg/100 ml Inj 1, 100 / 100 100 / 100 100 / 100 000 mg In 100 ml @ 5 MCG/KG/MIN 1.837 mls/hr IV.CONT TITRATE PRN Rx#:[id number] Pitressin Inj 40 UNIT In NS Inj 100 / 100 98 ML @ 0.04 UNITS/MIN 6 mls/ hr IV.CONT CONT RICARDO Rx#: [id number] Flexbumin 25% Inj 100 ML @ 60 100 / 100 100 / 100 mls/hr IV.SIG Q12H RICARDO Rx#: [id number] Calcium Chloride Inj 1 GM In NS 110 / 110 Inj 100 ML @ 110 mls/hr IV.SIG ONCE ONE Rx#:[id number] Cubicin Inj 400 MG In NS Inj 100 / 100 100 ML @ 200 mls/hr IV.SIG Q24H RICARDO Rx#:[id number] Diflucan 400 mg Premix Bag 200 200 / 200 ML @ 100 mls/hr IV.SIG Q24H RICARDO Rx#:[id number] Zosyn 4.5 GM Premix 4.5 gm In 300 / 300 200 / 200 100 ml @ 200 mls/hr IV.SIG Q6H RICARDO Rx#:[id number] KCl 40 mEq Premix Inj 40 meq In 200 / 200 100 ml @ 25 mls/hr IV.SIG Q2H PRN Rx#:[id number] NS Inj 250 ML @ 15 mls/hr IV. 500 / 500 SIG ONCE RICARDO Rx#:[id number] fentaNYL 10 mcg/mL Premix Drip 250 / 250 250 / 250 250 / 250 2,500 mcg In 250 ml @ 50 MCG/HR 5 mls/hr IV.SIG TITRATE PRN Rx #:[id number] Oral 0 / 0 Tube Feeding 167 / 167 264 / 264 Water Bolus Amount 120 / 120 Intake (Blood Product) Amt 0 / 0 800 / 800 Rbc As-3 Leukoreduced Unit 0 / 0 400 / 400 [id number] Rbc As-3 Leukoreduced Unit 400 / 400 [id number] Output: Urine 450 / 450 Stool 75 / 75 50 / 50 Urine Amount (Catheter) 450 / 450 2700 / 2700 1 450 / 450 2700 / 2700 Gastric Drainage 0 / 0 Nasogastric Tube 0 / 0 Wound Vac Amount 600 / 600 1250 / 1250 Posterior Sacrum 600 / 600 1250 / 1250 Other: Mode Setting Posterior Sacrum Continuous Continuous Continuous Date of Last Bowel Movement 12/25/17 12/27/17 # Bowel Movements 1 # Incontinent Bowel Movements 1 Narrative: Intubated Abd: soft Wound Vac in place with good seal - Urinary Catheter Management 1 Cath placed during this visit: yes Reason for continuing: Severe pressure ulcer/wound Insertion date: 12/15/17 Results - Labs 01/04/18 04:10 01/05/18 20:00 Laboratory Results - last 24 hr 12/26/17 12/26/17 12/27/17 17:26 19:37 00:07 WBC RBC Hgb Hct MCV MCH MCHC RDW Plt Count MPV Prelim Diff (Auto) Neut % (Auto) Lymph % (Auto) [place] % (Auto) Eos % (Auto) Baso % (Auto) Neut # (Auto) Lymph # (Auto) [place] # (Auto) Eos # (Auto) Baso # (Auto) WBC Differential Seg Neuts % (Manual) Band Neuts % (Manual) Lymphocytes % (Manual) Metamyelocytes % (Man) Myelocytes % (Man) Abs Neuts (Manual) Differential Comment Platelet Estimate Platelet Morphology Sodium Potassium Chloride Carbon Dioxide Anion Gap BUN Creatinine Estimated GFR POC Glucose 122 H 128 H 160 H Random Glucose Calcium Prot Corrected Calcium Total Protein Blood Type Antibody Screen MTS Gel Crossmatch Bld Prod Order Comment 12/27/17 12/27/1712/27/18 04:30 04:30 04:43 WBC 13.6 H RBC 2.14 L Hgb 6.4 L* Hct 19.3 L* MCV 90.0 MCH 30.1 MCHC 33.4 RDW 17.0 Plt Count 177 MPV 9.7 Prelim Diff (Auto) Slide review pending Neut % (Auto) 75.4 H Lymph % (Auto) 19.0 [place] % (Auto) 3.7 Eos % (Auto) 0.9 Baso % (Auto) 1.0 Neut # (Auto) 10.3 H Lymph # (Auto) 2.6 [place] # (Auto) 0.5 Eos # (Auto) 0.1 Baso # (Auto) 0.1 WBC Differential Manual diff final Seg Neuts % (Manual) 67 Band Neuts % (Manual) 8 H Lymphocytes % (Manual) 23 Metamyelocytes % (Man) 1 Myelocytes % (Man) 1 H Abs Neuts (Manual) 10.5 H Differential Comment . Platelet Estimate Normal Platelet Morphology Normal Sodium 135 L Potassium 3.5 Chloride 102 Carbon Dioxide 22.4 Anion Gap 11 BUN 33 H Creatinine 1.00 Estimated GFR 58 L POC Glucose 183 H Random Glucose 144 H Calcium 7.4 L* Prot Corrected Calcium 7.9 L D Total Protein 6.1 L Blood Type Antibody Screen MTS Gel Crossmatch Bld Prod Order Comment 12/27/17 12/27/17 12/27/17 04:44 05:20 05:30 WBC RBC Hgb Hct MCV MCH MCHC RDW Plt Count MPV Prelim Diff (Auto) Neut % (Auto) Lymph % (Auto) [place] % (Auto) Eos % (Auto) Baso % (Auto) Neut # (Auto) Lymph # (Auto) [place] # (Auto) Eos # (Auto) Baso # (Auto) WBC Differential Seg Neuts % (Manual) Band Neuts % (Manual) Lymphocytes % (Manual) Metamyelocytes % (Man) Myelocytes % (Man) Abs Neuts (Manual) Differential Comment Platelet Estimate Platelet Morphology Sodium Potassium Chloride Carbon Dioxide Anion Gap BUN Creatinine Estimated GFR POC Glucose 159 H Random Glucose Calcium Prot Corrected Calcium Total Protein Blood Type O Negative Antibody Screen Negative MTS Gel Crossmatch See Detail See Detail Bld Prod Order Comment 12/27/17 12/27/17 09:28 12:48 WBC RBC Hgb Hct MCV MCH MCHC RDW Plt Count MPV Prelim Diff (Auto) Neut % (Auto) Lymph % (Auto) [place] % (Auto) Eos % (Auto) Baso % (Auto) Neut # (Auto) Lymph # (Auto) [place] # (Auto) Eos # (Auto) Baso # (Auto) WBC Differential Seg Neuts % (Manual) Band Neuts % (Manual) Lymphocytes % (Manual) Metamyelocytes % (Man) Myelocytes % (Man) Abs Neuts (Manual) Differential Comment Platelet Estimate Platelet Morphology Sodium Potassium Chloride Carbon Dioxide Anion Gap BUN Creatinine Estimated GFR POC Glucose 153 H 168 H Random Glucose Calcium Prot Corrected Calcium Total Protein Blood Type Antibody Screen MTS Gel Crossmatch Bld Prod Order Comment - Imaging Imaging: ITS Impressions Femur X-Ray 12/15/17 07:05 CONCLUSION: No fracture is identified. There is extensive soft tissue air in the right gluteal region and extending into the proximal and mid posterior thigh. The soft tissue air suggests an open wound. Pelvis X-Ray 12/15/17 07:05 CONCLUSION: No fracture is identified. However, there is extensive soft tissue air in the left gluteal region and left proximal thigh. Pelvis CT 12/15/17 07:52 CONCLUSION: 1. No fracture is identified. 2. Extensive subcutaneous and soft tissue gas bilaterally, left greater than right. It is most severe in the left gluteal region and extends into the proximal posterior thigh. The soft tissue air dissects through the gluteal musculature. There is adjacent subcutaneous edema. Foot X-Ray 12/18/17 00:00 CONCLUSION: Remote small avulsion fracture at the fifth toe. No acute bony abnormality. Venous Doppler Study 12/22/17 00:00 CONCLUSION: Extensive deep vein thrombosis of the left upper extremity. Chest X-Ray 12/26/17 06:00 CONCLUSION: Slight improvement in aeration Assessment and Plan - Assessment (1) Necrotizing fasciitis of pelvic region and thigh Code(s): M72.6 - Necrotizing fasciitis Status: Acute Plan: 52yo female with multiple medical comorbidities, s/p debridement of nec fasc -Remains critically ill -Now off pressors -Plan for vac change tomorrow in the OR as well as tracheostomy tube placement -Obtain consents -Continue TF for today; NPO after MN -ID following - Attending Attestation patient seen at bedside doing better off pressor remains on resp support will plan for trach and vac change wants full code and intervention consent signed pt may require diverting colostomy in future The exam, history, and the medical decision-making described in the above note were completed with the assistance of the mid-level provider. I reviewed and agree with the findings presented. I attest that I had a [id number] encounter with the patient on the same day, and personally performed and documented my assessment and findings in the medical record.
[2017-12-27 14:15] LABS: Hematocrit 27.6 % (35.0-46.0); Hemoglobin 9.6 gm/dL (11.6-15.3)
--- NOTE | 2017-12-27 17:09 | P.PNPAL ---
Reason for Visit Reason for visit: a. To assist with evaluation and management of symptoms including: Pain, debility b. To assist medical decision maker(s) with: better understanding of current medical conditions; weighing benefits/burdens of medical treatment options; making medical treatment decisions. Subjective Subjective/Interval History: Palliative Care follow-up for assist with symptom management, family support and goals of care. Patient remains critical ill on ventilator support, stable hemodynamically off vasopressors. Currently FiO2 35%, sedated on propofol and fentanyl. No signs of discomfort noted. Received today 2 packs of red blood cells for hemoglobin of 6.4. Infectious disease following for sepsis from necrotizing fasciitis of the back, buttocks and thigh requiring regular debridement, plan to return to OR tomorrow 9. Patient with multiple chronic ongoing comorbidities who remains critically ill. No family at bedside during my visit. Telephone call to patient's Tyrone left message on voicemail. Case discussed with bedside RN, it appears that visits patient's on Mondays or Tuesdays secondary to his job. Telephone conversation with patient's sister Linette, medical update provided. Reviewed current treatment plan. Sister verbalized that family is still considering visiting patient but they are having financial limitations. Reviewed that patient remains critically ill with a guarded prognosis. Case discussed with palliative care social service coordinator Sandhya Henry and bedside RN Beverly. Advance Directives Living Will: Never completed Health Care Surrogate: Never completed Health Care Surrogate Name and Number: HCP Tyrone Middleton Documented care wishes:: No known documented care wishes have been completed Objective Vital Signs: Vital Signs 12/26/17 17:00 12/26/17 17:07 12/26/17 17:15 Temperature Pulse Rate 91 H 96 H 91 H Respiratory Rate Blood Pressure 111/56 L Pulse Oximetry 95 96 96 12/26/17 17:22 12/26/17 17:30 12/26/17 17:37 Temperature Pulse Rate 94 H 96 H 87 Respiratory Rate Blood Pressure 106/55 L 94/58 L Pulse Oximetry 96 96 97 12/26/17 17:45 12/26/17 17:52 12/26/17 18:00 Temperature Pulse Rate 87 86 83 Respiratory Rate Blood Pressure 89/57 L Pulse Oximetry 97 97 97 12/26/17 18:07 12/26/17 18:15 12/26/17 18:22 Temperature Pulse Rate 88 85 86 Respiratory Rate Blood Pressure 99/58 L 92/52 L Pulse Oximetry 96 97 97 12/26/17 18:30 12/26/17 18:37 12/26/17 18:45 Temperature Pulse Rate 91 H 85 84 Respiratory Rate Blood Pressure 93/50 L Pulse Oximetry 96 97 97 12/26/17 18:52 12/26/17 19:00 12/26/17 19:07 Temperature Pulse Rate 84 81 82 Respiratory Rate Blood Pressure 94/55 L 94/51 L Pulse Oximetry 97 97 96 12/26/17 19:15 12/26/17 19:22 12/26/17 19:30 Temperature Pulse Rate 80 77 82 Respiratory Rate Blood Pressure 93/50 L Pulse Oximetry 97 97 97 12/26/17 19:37 12/26/17 19:42 12/26/17 19:45 Temperature Pulse Rate 92 H 98 H Respiratory Rate 17 Blood Pressure 101/53 L Pulse Oximetry 96 95 97 12/26/17 19:52 12/26/17 20:00 12/26/17 20:07 Temperature 97.8 F Pulse Rate 90 86 84 Respiratory Rate Blood Pressure 97/53 L 99/54 L Pulse Oximetry 97 97 96 12/26/17 20:15 12/26/17 20:22 12/26/17 20:30 Temperature Pulse Rate 81 85 82 Respiratory Rate Blood Pressure 93/50 L Pulse Oximetry 96 96 96 12/26/17 20:37 12/26/17 20:45 12/26/17 20:52 Temperature Pulse Rate 81 82 80 Respiratory Rate Blood Pressure 93/50 L 90/51 L Pulse Oximetry 96 96 97 12/26/17 21:00 12/26/17 21:07 12/26/17 21:15 Temperature Pulse Rate 81 86 79 Respiratory Rate Blood Pressure 97/56 L Pulse Oximetry 96 97 96 12/26/17 21:22 12/26/17 21:30 12/26/17 21:37 Temperature Pulse Rate 91 H 91 H 86 Respiratory Rate Blood Pressure 111/52 L 95/52 L Pulse Oximetry 97 97 97 12/26/17 21:45 12/26/17 21:52 12/26/17 22:00 Temperature Pulse Rate 93 H 93 H 87 Respiratory Rate Blood Pressure 92/54 L Pulse Oximetry 97 97 97 12/26/17 22:07 12/26/17 22:15 12/26/17 22:22 Temperature Pulse Rate 88 88 86 Respiratory Rate Blood Pressure 93/51 L 91/53 L Pulse Oximetry 97 97 97 12/26/17 22:30 12/26/17 22:37 12/26/17 22:41 Temperature Pulse Rate 84 83 83 Respiratory Rate Blood Pressure 84/52 L 90/55 L Pulse Oximetry 97 98 97 12/26/17 22:45 12/26/17 22:52 12/26/17 23:00 Temperature Pulse Rate 94 H 89 84 Respiratory Rate Blood Pressure 90/55 L Pulse Oximetry 97 97 97 12/26/17 23:07 12/26/17 23:10 12/26/17 23:15 Temperature Pulse Rate 83 82 88 Respiratory Rate Blood Pressure 82/51 L 83/54 L Pulse Oximetry 97 97 97 12/26/17 23:22 12/26/17 23:30 12/26/17 23:37 Temperature Pulse Rate 83 78 77 Respiratory Rate Blood Pressure 84/51 L 81/53 L Pulse Oximetry 97 97 97 12/26/17 23:40 12/26/17 23:45 12/26/17 23:52 Temperature Pulse Rate 76 82 77 Respiratory Rate Blood Pressure 87/53 L 85/53 L Pulse Oximetry 97 97 96 12/26/17 23:53 12/27/17 00:00 12/27/17 00:04 Temperature 98.5 F Pulse Rate 80 101 H Respiratory Rate 17 Blood Pressure 151/63 H Pulse Oximetry 97 97 98 12/27/17 00:07 12/27/17 00:15 12/27/17 00:22 Temperature Pulse Rate 96 H 92 H 93 H Respiratory Rate Blood Pressure 127/67 116/62 Pulse Oximetry 96 96 96 12/27/17 00:30 12/27/17 00:37 12/27/17 00:45 Temperature Pulse Rate 99 H 92 H 96 H Respiratory Rate Blood Pressure 117/60 Pulse Oximetry 95 95 95 12/27/17 00:52 12/27/17 01:00 12/27/17 01:15 Temperature Pulse Rate 96 H 102 H 97 H Respiratory Rate Blood Pressure 112/58 L 115/61 106/63 Pulse Oximetry 95 95 95 12/27/17 01:30 12/27/17 01:45 12/27/17 02:00 Temperature Pulse Rate 90 93 H 93 H Respiratory Rate Blood Pressure 98/62 L 100/62 97/59 L Pulse Oximetry 94 L 94 L 95 12/27/17 02:15 12/27/17 02:30 12/27/17 02:45 Temperature Pulse Rate 98 H 91 H 98 H Respiratory Rate Blood Pressure 97/62 L 97/59 L 105/58 L Pulse Oximetry 94 L 94 L 94 L 12/27/17 03:00 12/27/17 03:15 12/27/17 03:30 Temperature Pulse Rate 87 102 H 92 H Respiratory Rate Blood Pressure 97/56 L 110/53 L 102/50 L Pulse Oximetry 94 L 94 L 94 L 12/27/17 03:45 12/27/17 04:00 12/27/17 04:12 Temperature 98.3 F Pulse Rate 94 H 92 H Respiratory Rate 22 Blood Pressure 103/58 L 100/58 L Pulse Oximetry 94 L 94 L 94 L 12/27/17 04:15 12/27/17 06:55 12/27/17 07:53 Temperature 98.0 F Pulse Rate 98 H 96 H Respiratory Rate 16 17 Blood Pressure 113/55 L 106/65 Pulse Oximetry 94 L 96 96 12/27/17 08:00 12/27/17 08:15 12/27/17 08:30 Temperature 74.8 F L 96.8 F L 96.8 F L Pulse Rate 95 H 86 83 Respiratory Rate Blood Pressure 114/65 117/63 117/60 Pulse Oximetry 96 97 97 12/27/17 08:45 12/27/17 09:00 12/27/17 09:15 Temperature 97.0 F L 97.0 F L 97.0 F L Pulse Rate 86 90 84 Respiratory Rate 17 Blood Pressure 117/58 L 136/65 125/59 L Pulse Oximetry 97 96 97 12/27/17 09:30 12/27/17 09:45 12/27/17 10:00 Temperature 97.2 F L 97.2 F L 97.3 F L Pulse Rate 96 H 91 H 88 Respiratory Rate Blood Pressure 125/64 122/59 L 115/56 L Pulse Oximetry 97 97 97 12/27/17 10:15 12/27/17 10:30 12/27/17 10:45 Temperature 97.3 F L 97.3 F L 97.5 F L Pulse Rate 84 90 92 H Respiratory Rate Blood Pressure 112/55 L 112/60 112/58 L Pulse Oximetry 97 97 96 12/27/17 11:00 12/27/17 11:15 12/27/17 11:30 Temperature 97.7 F 97.9 F 97.9 F Pulse Rate 99 H 96 H 90 Respiratory Rate Blood Pressure 114/68 118/67 109/62 Pulse Oximetry 96 96 96 12/27/17 11:45 12/27/17 12:00 12/27/17 12:15 Temperature 97.9 F 97.9 F 97.9 F Pulse Rate 90 85 84 Respiratory Rate Blood Pressure 113/66 112/64 103/59 L Pulse Oximetry 96 97 97 12/27/17 12:30 12/27/17 12:45 12/27/17 13:00 Temperature 97.9 F 97.9 F 98.1 F Pulse Rate 87 84 77 Respiratory Rate 17 Blood Pressure 119/63 115/61 108/58 L Pulse Oximetry 97 96 97 12/27/17 13:15 12/27/17 13:30 12/27/17 13:45 Temperature 98.1 F 98.1 F 98.1 F Pulse Rate 82 85 76 Respiratory Rate Blood Pressure 110/62 118/65 113/62 Pulse Oximetry 97 96 97 12/27/17 14:00 12/27/17 14:36 12/27/17 14:45 Temperature 98.2 F 98.1 F 97.7 F Pulse Rate 96 H 100 H 98 H Respiratory Rate Blood Pressure 131/76 126/76 Pulse Oximetry 96 94 L 91 L 12/27/17 15:00 12/27/17 15:14 12/27/17 15:15 Temperature 97.7 F 97.9 F 97.7 F Pulse Rate 96 H 93 H 94 H Respiratory Rate 16 Blood Pressure 128/77 127/74 Pulse Oximetry 92 L 93 L 93 L 12/27/17 15:30 12/27/17 15:45 12/27/17 16:00 Temperature 97.7 F 97.7 F 97.9 F Pulse Rate 92 H 85 92 H Respiratory Rate Blood Pressure 133/81 130/74 140/79 Pulse Oximetry 93 L 93 L 93 L 12/27/17 16:01 12/27/17 16:15 12/27/17 16:30 Temperature 97.9 F 98.1 F Pulse Rate 88 88 Respiratory Rate 18 Blood Pressure 158/69 H 136/74 Pulse Oximetry 93 L 93 L 93 L Intake & Output 12/26/17 12/27/17 12/27/17 18:59 06:59 18:59 Intake Total 2747 / 2747 191 / 1914 3150 / 3150 Output Total 1575 / 1575 4000 / 4000 Balance 1172 / 1172 -2086 / -2086 3150 / 3150 Weight 79.8 kg Intake: IV 2460 / 2460 1650 / 1650 2350 / 2350 D5W/LR Inj 1,000 ML @ 75 mls/hr 1000 / 1000 1000 / 1000 1000 / 1000 IV.CONT .[id number] RICARDO Rx#: [id number] Diprivan 1000 mg/100 ml Inj 1, 100 / 100 100 / 100 100 / 100 000 mg In 100 ml @ 5 MCG/KG/MIN 1.837 mls/hr IV.CONT TITRATE PRN Rx#:[id number] Pitressin Inj 40 UNIT In NS Inj 100 / 100 98 ML @ 0.04 UNITS/MIN 6 mls/ hr IV.CONT CONT RICARDO Rx#: [id number] Flexbumin 25% Inj 100 ML @ 60 100 / 100 100 / 100 100 / 100 mls/hr IV.SIG Q12H RICARDO Rx#: [id number] Calcium Chloride Inj 1 GM In NS 110 / 110 Inj 100 ML @ 110 mls/hr IV.SIG ONCE ONE Rx#:[id number] Cubicin Inj 400 MG In NS Inj 100 / 100 100 / 100 100 ML @ 200 mls/hr IV.SIG Q24H RICARDO Rx#:[id number] Diflucan 400 mg Premix Bag 200 200 / 200 200 / 200 ML @ 100 mls/hr IV.SIG Q24H RICARDO Rx#:[id number] Zosyn 4.5 GM Premix 4.5 gm In 300 / 300 200 / 200 100 / 100 100 ml @ 200 mls/hr IV.SIG Q6H RICARDO Rx#:[id number] KCl 40 mEq Premix Inj 40 meq In 200 / 200 100 ml @ 25 mls/hr IV.SIG Q2H PRN Rx#:[id number] NS Inj 250 ML @ 15 mls/hr IV. 500 / 500 SIG ONCE RICARDO Rx#:[id number] fentaNYL 10 mcg/mL Premix Drip 250 / 250 250 / 250 250 / 250 2,500 mcg In 250 ml @ 50 MCG/HR 5 mls/hr IV.SIG TITRATE PRN Rx #:[id number] Oral 0 / 0 Tube Feeding 167 / 167 264 / 264 Water Bolus Amount 120 / 120 Intake (Blood Product) Amt 0 / 0 800 / 800 Rbc As-3 Leukoreduced Unit 0 / 0 400 / 400 [id number] Rbc As-3 Leukoreduced Unit 400 / 400 [id number] Output: Urine 450 / 450 Stool 75 / 75 50 / 50 Urine Amount (Catheter) 450 / 450 2700 / 2700 1 450 / 450 2700 / 2700 Gastric Drainage 0 / 0 Nasogastric Tube 0 / 0 Wound Vac Amount 600 / 600 1250 / 1250 Posterior Sacrum 600 / 600 1250 / 1250 Other: Mode Setting Posterior Sacrum Continuous Continuous Continuous Date of Last Bowel Movement 12/25/17 12/27/17 # Bowel Movements 1 # Incontinent Bowel Movements 1 Physical Exam: CONSTITUTIONAL/GENERAL: This is a chronically ill appearing female who looks older than her stated age. currently intubated on mechanical vent TUBES/LINES/DRAINS:ETT, NGT, Tristan, SCDs, PIV, wound VAC. Rectal tube with moderate amount of liquid stool. SKIN: Very pale. Abrasion on left forehead. Scattered ecchymosis to upper extremities. Wound VAC in place over lower lumbar region with blood-tinged drainage -not observed. Skin temperature appropriate. Not diaphoretic. HEAD: Atraumatic. Normocephalic. EYES: Pupils equal and round, reactive. No scleral icterus. No injection or drainage. ENT: Nose without bleeding or purulent drainage. Moist oral mucosa. NECK: Trachea midline. Supple, nontender. CARDIOVASCULAR: Regular rate and rhythm. RESPIRATORY/CHEST: Intubated on vent. FiO2 35%. Breath sounds equal bilaterally. GASTROINTESTINAL: Abdomen soft, non-tender, nondistended. No guarding. Bowel sounds present. GENITOURINARY: Without palpable bladder distension. Tristan catheter in place. MUSCULOSKELETAL: Status post right BKA. Left foot cool to touch; several toes with necrotic ulcerations on left foot. LYMPHATICS: No palpable cervical or supraclavicular adenopathy. NEUROLOGICAL: Sedated on fentanyl and propofol. PSYCHIATRIC: Unable to assess given current level of responsiveness Diagnostic Tests Laboratory: Laboratory Results - last 72 hr 12/24/17 12/25/17 12/25/17 20:11 00:10 05:30 WBC RBC Hgb Hct MCV MCH MCHC RDW Plt Count MPV Prelim Diff (Auto) Neut % (Auto) Lymph % (Auto) Otero % (Auto) Eos % (Auto) Baso % (Auto) Neut # (Auto) Lymph # (Auto) Otero # (Auto) Eos # (Auto) Baso # (Auto) WBC Differential Seg Neuts % (Manual) Band Neuts % (Manual) Lymphocytes % (Manual) Monocytes % (Manual) Eosinophils % (Manual) Metamyelocytes % (Man) Myelocytes % (Man) Abs Neuts (Manual) Differential Comment Toxic Granulation Toxic Vacuolation Platelet Estimate Platelet Morphology Spherocytes Puncture Site Art line Patient Temperature 98.6 O2 Saturation 98 ABG pH 7.41 ABG pCO2 31 L ABG pO2 381 H ABG HCO3 19 L ABG O2 Content 16.0 ABG Base Excess -4.8 L ABG Methemoglobin 1.4 Hemoglobin 10.9 L Carboxyhemoglobin 0.9 O2 Delivery Device Ventilator Vent Setting 16/450/[id number]/[id number] Inspired O2 90 Critical Value No Sodium Potassium Chloride Carbon Dioxide Anion Gap BUN Creatinine Estimated GFR POC Glucose 160 H 148 H Random Glucose Calcium Prot Corrected Calcium Magnesium Total Bilirubin AST ALT Alkaline Phosphatase Total Protein Albumin Blood Type Antibody Screen MTS Gel Crossmatch Bld Prod Order Comment 12/25/17 12/25/17 12/25/17 06:30 06:30 08:25 WBC 31.0 H RBC 2.80 L Hgb 8.7 L Hct 25.2 L MCV 89.9 MCH 31.1 MCHC 34.6 RDW 16.8 Plt Count 184 MPV 10.5 Prelim Diff (Auto) Slide review pending Neut % (Auto) 85.8 H Lymph % (Auto) 10.8 Otero % (Auto) 2.0 Eos % (Auto) 0.6 Baso % (Auto) 0.8 Neut # (Auto) 26.6 H Lymph # (Auto) 3.4 Otero # (Auto) 0.6 Eos # (Auto) 0.2 Baso # (Auto) 0.2 WBC Differential Manual diff final Seg Neuts % (Manual) 65 Band Neuts % (Manual) 17 H Lymphocytes % (Manual) 15 Monocytes % (Manual) 2 Eosinophils % (Manual) Metamyelocytes % (Man) Myelocytes % (Man) 1 H Abs Neuts (Manual) 25.7 H Differential Comment . Toxic Granulation 1+ H Toxic Vacuolation Present H Platelet Estimate Normal Platelet Morphology Normal Spherocytes Puncture Site Patient Temperature O2 Saturation ABG pH ABG pCO2 ABG pO2 ABG HCO3 ABG O2 Content ABG Base Excess ABG Methemoglobin Hemoglobin Carboxyhemoglobin O2 Delivery Device Vent Setting Inspired O2 Critical Value Sodium 133 L Potassium 3.4 L Chloride 102 Carbon Dioxide 19.7 L Anion Gap 11 BUN 32 H Creatinine 1.11 H Estimated GFR 51 L POC Glucose 266 H Random Glucose 209 H Calcium 6.6 L* Prot Corrected Calcium 6.9 L* Magnesium Total Bilirubin AST ALT Alkaline Phosphatase Total Protein 6.4 D Albumin Blood Type Antibody Screen MTS Gel Crossmatch Bld Prod Order Comment 12/25/17 12/25/17 12/25/17 12:58 16:01 20:58 WBC RBC Hgb Hct MCV MCH MCHC RDW Plt Count MPV Prelim Diff (Auto) Neut % (Auto) Lymph % (Auto) Otero % (Auto) Eos % (Auto) Baso % (Auto) Neut # (Auto) Lymph # (Auto) Otero # (Auto) Eos # (Auto) Baso # (Auto) WBC Differential Seg Neuts % (Manual) Band Neuts % (Manual) Lymphocytes % (Manual) Monocytes % (Manual) Eosinophils % (Manual) Metamyelocytes % (Man) Myelocytes % (Man) Abs Neuts (Manual) Differential Comment Toxic Granulation Toxic Vacuolation Platelet Estimate Platelet Morphology Spherocytes Puncture Site Patient Temperature O2 Saturation ABG pH ABG pCO2 ABG pO2 ABG HCO3 ABG O2 Content ABG Base Excess ABG Methemoglobin Hemoglobin Carboxyhemoglobin O2 Delivery Device Vent Setting Inspired O2 Critical Value Sodium Potassium Chloride Carbon Dioxide Anion Gap BUN Creatinine Estimated GFR POC Glucose 196 H 144 H 156 H Random Glucose Calcium Prot Corrected Calcium Magnesium Total Bilirubin AST ALT Alkaline Phosphatase Total Protein Albumin Blood Type Antibody Screen MTS Gel Crossmatch Bld Prod Order Comment 12/26/17 12/26/17 12/26/17 00:09 04:30 04:34 WBC RBC Hgb Hct MCV MCH MCHC RDW Plt Count MPV Prelim Diff (Auto) Neut % (Auto) Lymph % (Auto) Otero % (Auto) Eos % (Auto) Baso % (Auto) Neut # (Auto) Lymph # (Auto) Otero # (Auto) Eos # (Auto) Baso # (Auto) WBC Differential Seg Neuts % (Manual) Band Neuts % (Manual) Lymphocytes % (Manual) Monocytes % (Manual) Eosinophils % (Manual) Metamyelocytes % (Man) Myelocytes % (Man) Abs Neuts (Manual) Differential Comment Toxic Granulation Toxic Vacuolation Platelet Estimate Platelet Morphology Spherocytes Puncture Site Patient Temperature O2 Saturation ABG pH ABG pCO2 ABG pO2 ABG HCO3 ABG O2 Content ABG Base Excess ABG Methemoglobin Hemoglobin Carboxyhemoglobin O2 Delivery Device Vent Setting Inspired O2 Critical Value Sodium Potassium Chloride Carbon Dioxide Anion Gap BUN Creatinine Estimated GFR POC Glucose 144 H 188 H 175 H Random Glucose Calcium Prot Corrected Calcium Magnesium Total Bilirubin AST ALT Alkaline Phosphatase Total Protein Albumin Blood Type Antibody Screen MTS Gel Crossmatch Bld Prod Order Comment 12/26/17 12/26/17 12/26/17 05:00 05:00 08:52 WBC 22.0 H RBC 2.74 L Hgb 8.3 L Hct 24.6 L MCV 89.7 MCH 30.3 MCHC 33.8 RDW 16.8 Plt Count 213 MPV 10.0 Prelim Diff (Auto) Slide review pending Neut % (Auto) 78.4 H Lymph % (Auto) 16.4 Otero % (Auto) 2.9 Eos % (Auto) 0.9 Baso % (Auto) 1.4 Neut # (Auto) 17.3 H Lymph # (Auto) 3.6 Otero # (Auto) 0.6 Eos # (Auto) 0.2 Baso # (Auto) 0.3 H WBC Differential Manual diff final Seg Neuts % (Manual) 78 H Band Neuts % (Manual) 5 Lymphocytes % (Manual) 13 Monocytes % (Manual) 3 Eosinophils % (Manual) 1 Metamyelocytes % (Man) Myelocytes % (Man) Abs Neuts (Manual) 18.3 H Differential Comment . Toxic Granulation 1+ H Toxic Vacuolation Present H Platelet Estimate Normal Platelet Morphology Enlarged H Spherocytes Occ H Puncture Site Patient Temperature O2 Saturation ABG pH ABG pCO2 ABG pO2 ABG HCO3 ABG O2 Content ABG Base Excess ABG Methemoglobin Hemoglobin Carboxyhemoglobin O2 Delivery Device Vent Setting Inspired O2 Critical Value Sodium 132 L Potassium 3.2 L Chloride 100 Carbon Dioxide 21.3 Anion Gap 11 BUN 35 H Creatinine 0.96 Estimated GFR 61 L POC Glucose 167 H Random Glucose 181 H Calcium 7.0 L* Prot Corrected Calcium 7.4 L* Magnesium 1.3 L Total Bilirubin 0.6 AST 7 L ALT Less than 6 L Alkaline Phosphatase 301 H Total Protein 6.4 Albumin 1.0 L Blood Type Antibody Screen MTS Gel Crossmatch Bld Prod Order Comment 12/26/17 12/26/17 12/26/17 11:49 17:26 19:37 WBC RBC Hgb Hct MCV MCH MCHC RDW Plt Count MPV Prelim Diff (Auto) Neut % (Auto) Lymph % (Auto) Otero % (Auto) Eos % (Auto) Baso % (Auto) Neut # (Auto) Lymph # (Auto) Otero # (Auto) Eos # (Auto) Baso # (Auto) WBC Differential Seg Neuts % (Manual) Band Neuts % (Manual) Lymphocytes % (Manual) Monocytes % (Manual) Eosinophils % (Manual) Metamyelocytes % (Man) Myelocytes % (Man) Abs Neuts (Manual) Differential Comment Toxic Granulation Toxic Vacuolation Platelet Estimate Platelet Morphology Spherocytes Puncture Site Patient Temperature O2 Saturation ABG pH ABG pCO2 ABG pO2 ABG HCO3 ABG O2 Content ABG Base Excess ABG Methemoglobin Hemoglobin Carboxyhemoglobin O2 Delivery Device Vent Setting Inspired O2 Critical Value Sodium Potassium Chloride Carbon Dioxide Anion Gap BUN Creatinine Estimated GFR POC Glucose 151 H 122 H 128 H Random Glucose Calcium Prot Corrected Calcium Magnesium Total Bilirubin AST ALT Alkaline Phosphatase Total Protein Albumin Blood Type Antibody Screen MTS Gel Crossmatch Bld Prod Order Comment 12/27/17 12/27/17 12/27/17 00:07 04:30 04:30 WBC 13.6 H RBC 2.14 L Hgb 6.4 L* Hct 19.3 L* MCV 90.0 MCH 30.1 MCHC 33.4 RDW 17.0 Plt Count 177 MPV 9.7 Prelim Diff (Auto) Slide review pending Neut % (Auto) 75.4 H Lymph % (Auto) 19.0 Otero % (Auto) 3.7 Eos % (Auto) 0.9 Baso % (Auto) 1.0 Neut # (Auto) 10.3 H Lymph # (Auto) 2.6 Otero # (Auto) 0.5 Eos # (Auto) 0.1 Baso # (Auto) 0.1 WBC Differential Manual diff final Seg Neuts % (Manual) 67 Band Neuts % (Manual) 8 H Lymphocytes % (Manual) 23 Monocytes % (Manual) Eosinophils % (Manual) Metamyelocytes % (Man) 1 Myelocytes % (Man) 1 H Abs Neuts (Manual) 10.5 H Differential Comment . Toxic Granulation Toxic Vacuolation Platelet Estimate Normal Platelet Morphology Normal Spherocytes Puncture Site Patient Temperature O2 Saturation ABG pH ABG pCO2 ABG pO2 ABG HCO3 ABG O2 Content ABG Base Excess ABG Methemoglobin Hemoglobin Carboxyhemoglobin O2 Delivery Device Vent Setting Inspired O2 Critical Value Sodium 135 L Potassium 3.5 Chloride 102 Carbon Dioxide 22.4 Anion Gap 11 BUN 33 H Creatinine 1.00 Estimated GFR 58 L POC Glucose 160 H Random Glucose 144 H Calcium 7.4 L* Prot Corrected Calcium 7.9 L D Magnesium Total Bilirubin AST ALT Alkaline Phosphatase Total Protein 6.1 L Albumin Blood Type Antibody Screen MTS Gel Crossmatch Bld Prod Order Comment 12/27/17 12/27/17 12/27/17 04:43 04:44 05:20 WBC RBC Hgb Hct MCV MCH MCHC RDW Plt Count MPV Prelim Diff (Auto) Neut % (Auto) Lymph % (Auto) Otero % (Auto) Eos % (Auto) Baso % (Auto) Neut # (Auto) Lymph # (Auto) Otero # (Auto) Eos # (Auto) Baso # (Auto) WBC Differential Seg Neuts % (Manual) Band Neuts % (Manual) Lymphocytes % (Manual) Monocytes % (Manual) Eosinophils % (Manual) Metamyelocytes % (Man) Myelocytes % (Man) Abs Neuts (Manual) Differential Comment Toxic Granulation Toxic Vacuolation Platelet Estimate Platelet Morphology Spherocytes Puncture Site Patient Temperature O2 Saturation ABG pH ABG pCO2 ABG pO2 ABG HCO3 ABG O2 Content ABG Base Excess ABG Methemoglobin Hemoglobin Carboxyhemoglobin O2 Delivery Device Vent Setting Inspired O2 Critical Value Sodium Potassium Chloride Carbon Dioxide Anion Gap BUN Creatinine Estimated GFR POC Glucose 183 H 159 H Random Glucose Calcium Prot Corrected Calcium Magnesium Total Bilirubin AST ALT Alkaline Phosphatase Total Protein Albumin Blood Type Antibody Screen MTS Gel Crossmatch See Detail Bld Prod Order Comment 12/27/17 12/27/17 12/27/17 05:30 09:28 12:39 WBC RBC Hgb 9.6 L D Hct 27.6 L MCV MCH MCHC RDW Plt Count MPV Prelim Diff (Auto) Neut % (Auto) Lymph % (Auto) Otero % (Auto) Eos % (Auto) Baso % (Auto) Neut # (Auto) Lymph # (Auto) Otero # (Auto) Eos # (Auto) Baso # (Auto) WBC Differential Seg Neuts % (Manual) Band Neuts % (Manual) Lymphocytes % (Manual) Monocytes % (Manual) Eosinophils % (Manual) Metamyelocytes % (Man) Myelocytes % (Man) Abs Neuts (Manual) Differential Comment Toxic Granulation Toxic Vacuolation Platelet Estimate Platelet Morphology Spherocytes Puncture Site Patient Temperature O2 Saturation ABG pH ABG pCO2 ABG pO2 ABG HCO3 ABG O2 Content ABG Base Excess ABG Methemoglobin Hemoglobin Carboxyhemoglobin O2 Delivery Device Vent Setting Inspired O2 Critical Value Sodium Potassium Chloride Carbon Dioxide Anion Gap BUN Creatinine Estimated GFR POC Glucose 153 H Random Glucose Calcium Prot Corrected Calcium Magnesium Total Bilirubin AST ALT Alkaline Phosphatase Total Protein Albumin Blood Type O Negative Antibody Screen Negative MTS Gel Crossmatch See Detail Bld Prod Order Comment 12/27/17 12:48 WBC RBC Hgb Hct MCV MCH MCHC RDW Plt Count MPV Prelim Diff (Auto) Neut % (Auto) Lymph % (Auto) Otero % (Auto) Eos % (Auto) Baso % (Auto) Neut # (Auto) Lymph # (Auto) Otero # (Auto) Eos # (Auto) Baso # (Auto) WBC Differential Seg Neuts % (Manual) Band Neuts % (Manual) Lymphocytes % (Manual) Monocytes % (Manual) Eosinophils % (Manual) Metamyelocytes % (Man) Myelocytes % (Man) Abs Neuts (Manual) Differential Comment Toxic Granulation Toxic Vacuolation Platelet Estimate Platelet Morphology Spherocytes Puncture Site Patient Temperature O2 Saturation ABG pH ABG pCO2 ABG pO2 ABG HCO3 ABG O2 Content ABG Base Excess ABG Methemoglobin Hemoglobin Carboxyhemoglobin O2 Delivery Device Vent Setting Inspired O2 Critical Value Sodium Potassium Chloride Carbon Dioxide Anion Gap BUN Creatinine Estimated GFR POC Glucose 168 H Random Glucose Calcium Prot Corrected Calcium Magnesium Total Bilirubin AST ALT Alkaline Phosphatase Total Protein Albumin Blood Type Antibody Screen MTS Gel Crossmatch Bld Prod Order Comment Result Diagrams: 12/27/17 12:39 12/27/17 04:30 Microbiology: Microbiology 12/24/17 12:20 Fungal Smear - Final Tissue - Buttock Rare budding yeast Fungal Culture - Preliminary Talia albicans Talia tropicalis 12/24/17 12:20 Gram Stain - Final Tissue - Buttock Wound Culture - Final Talia albicans Talia tropicalis 12/24/17 12:20 Acid Fast Bacilli Smear - Final Tissue - Buttock No acid fast bacilli seen Procedures: 12/15/2017: Endotracheal intubation 12/15/2017: Left subclavian central line placement 12/15/2017: NGT placement 12/15/2017: I&D with wound HEMOVAC placement 12/18/2017: I&D with wound VAC change 12/21/2017: I&D with wound VAC change 12/24/2017: I&D with wound VAC change Assessment and Plan - Disease Oriented Problem List (1) Septic shock with acute organ dysfunction due to anaerobic bacteria (2) Acute respiratory failure (3) Type 2 diabetes mellitus with hyperosmolar nonketotic hyperglycemia (4) Necrotizing fasciitis (5) MARIO (acute kidney injury) (6) Lactic acidosis - Symptom Scale (1) Pain 0-10 Scale: Unable to quantify (2) Debility 0-10 Scale: Unable to quantify Pertinent Non-Medical Issues: Psychosocial:Originally from [place]. Currently . Spiritual: No lutheran affiliation. Legal: Per [place] statutes, in the absence of written advanced directives health care proxy decision making will fall to the patient's , Tyrone. Ethical issues impacting care: No known ethical issues impacting care at this time. Important Contacts: Tyrone Middleton, : [phone] Sister Linette Lebron , Prognosis: Patient is critically ill and in septic shock with necrotizing fasciitis secondary to a chronic sacral decubitus. Upon arrival to the ED, the patient was hyperglycemic with a blood glucose of 610, severely dehydrated and in profound shock. She is intubated on mechanical ventilation requiring pressor support status post wide excision of the involved soft tissue. Patient will require further debridement in the future. She remains hemodynamically unstable and critically ill. Very high risk for further complications, continue decline and . Very poor overall prognosis for survival. Code Status: Full Code Plan: * CODE STATUS: FULL CODE * HEALTHCARE DECISION-MAKING: Patient lacks insight and judgment related to her complicated clinical condition. It is unclear if she will regain capacity for medical decision-making. Per [place] statute, in the absence of written advanced directives healthcare proxy decision making falls to the patient's , Tyrone Middleton. He has accepted this role. * GOALS OF CARE: Goals remains aggressive, acting as healthcare proxy has elected to proceed with tracheostomy placement and continuation of surgical wound debridement. * Symptom management: Pain: Multifactoral. Patient has a long history of chronic conditions. She is currently sedated with fentanyl and propofol. Possible contributing factors include severe peripheral arterial disease, recent BKA, peripheral neuropathy, sepsis, necrotizing fasciitis, invasive lines, immobility. No further recommendations at this time. We will continue to monitor. Debility/profound physical deconditioning: Patient with uncontrolled diabetes with severe peripheral arterial disease and smoking. Patient has had several hospitalizations/ED visits in the past year. 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 Patient went to live with her family in [place] after her last hospitalization but returned to [place] in the past few weeks. Patient's states she is alone much of the time because he works so much. He states she has a history of non-compliance with her medical regimen and is no longer able to care for herself at home. Will likely required acute rehabilitation if she survives this acute hospitalization. However, long-term plans for this patient are impacted by her psychosocial situation. No payer source or coverage for rehabilitation. * Palliative care contact information was provided to the patient's and sister. * Case discussed with bedside RN Beverly. * Palliative care will continue to follow this patient throughout her hospitalization to establish trust, assist with symptom management and clarification of medical treatment goals. Time Spent Total Floor Time (mins): 22 (Total time to include review of medical records, physical exam, telephone conversation with patient's sister, case discussion with bedside RN.) >50% Time in Counseling or Coordination of Care: Yes (Total visit time = 22 minutes; > 50% spent counseling/coordinating care) Attestation Collaborating MD Comments: To help prompt me to consider important information that might be impacting today's encounter and assessment, information from prior notes written by myself or my colleagues may have been "brought forward" into today's note. My signature on this note, however, is an attestation that I personally performed the exam, history, and/or decision-making noted today, and, unless otherwise indicated, the interactions with patient, family, and staff as well as the review of records all occurred today. I also attest that the listed assessment and stated plan reflect my best clinical judgment today based on the combination of historical information, prior notes, and today's exam/ interactions. When time spent is documented, it refers only to time spent today by the signer, or if indicated, combined time spent today by collaborating physician/nurse practitioner.
[2017-12-28] MEDS: Propofol 1000 mg/100 ml Inj 1,000 MG/100 ML BOTTLE IV.CONT PRN ×3 (00:20→21:33)
[2017-12-28] MEDS: fentaNYL 10 mcg/mL Premix Drip 2,500 MCG/250 ML BAG IV.SIG PRN ×3 (00:21→22:57)
[2017-12-28] MEDS: Piperacil/Tazo 4.5 GM Premix 4.5 GM/100 ML BAG IV.SIG SCH ×4 (00:21→18:02)
[2017-12-28] MEDS: Insulin NovoLIN Regular Correctional Sugar Inj SQ SCH ×6 (00:22→22:25)
[2017-12-28] MEDS: Oral Hygiene Kit OROPHARYNG SCH ×4 (00:22→16:39)
[2017-12-28] MEDS: Albumin Human 25% Inj 100 ML IV.SIG SCH ×2 (03:37→14:23)
--- NOTE | 2017-12-28 04:36 | XR ---
EXAM DATE: 12/28/2017 4:23 AM EST AGE/SEX: 52 years / Female INDICATIONS: Respiratory disease. CLINICAL DATA: This is the patient's subsequent encounter. Patient reports that signs and symptoms h ave been present for 1 week and indicates a pain score of Nonresponsive. MEDICAL/SURGICAL HISTORY: . Benign hypertension. Decubital ulcer. Diabetes. GERD. Hepatitis C v irus. Clostridium difficile colitis. Diabetic gastroparesis. MRSA. Osteomyelitis. Peripheral neuropat hy. Peripheral vascular disease. . Below the knee amputation. section x2. COMPARISON: [facility] [place] 1V SINGLE AP, 12/26/2017. . FINDINGS: A single AP view of the chest demonstrates an endotracheal tube with the tip 3 cm from the damian. Na sogastric tube courses off the inferior margin of the film. Hazy opacity is seen involving the left h emithorax most pronounced within the left base. This is unchanged. Right lung is clear. The patient i s rotated towards the right. Heart is normal in size. Right-sided central line. Tiny left effusion. N o effusion on the right. CONCLUSION: Unchanged exam. Electronically signed by: Prudencio Henry MD 12/28/2017 4:35 AM EST
[2017-12-28 05:59] LABS: Baso % (Auto) 0.4 % (0.0-2.0); Eos # (Auto) 0.1 th/mm3 (0.0-0.4); Eos % (Auto) 0.9 % (0.0-4.0); Hematocrit 25.7 % (35.0-46.0); Hemoglobin 9.1 gm/dL (11.6-15.3); Lymph # (Auto) 2.3 th/mm3 (1.0-4.8); Lymph % (Auto) 24.2 % (9.0-44.0); Mean Corpuscular HGB Conc 35.7 % (32.0-36.0); Mean Corpuscular Hemoglobin 30.8 pg (27.0-34.0); Mean Corpuscular Volume 86.5 fL (80.0-100.0); Mean Platelet Volume 9.2 fL (7.0-11.0); Mono # (Auto) 0.5 th/mm3 (0.0-0.9); Mono % (Auto) 5.7 % (0.0-8.0); Neut # (Auto) 6.5 th/mm3 (1.8-7.7); Neut % (Auto) 68.8 % (16.0-70.0); Platelet Count 199 th/mm3 (150-450); Red Blood Count 2.97 mil/mm3 (4.00-5.30); Red Cell Distribution Width 16.5 % (11.6-17.2); White Blood Count 9.5 th/mm3 (4.0-11.0)
[2017-12-28 06:31] LABS: Alanine Aminotransferase 6 U/L (10-53); Albumin 2.4 g/dL (3.4-5.0); Alkaline Phosphatase 197 U/L (45-117); Anion Gap 12 meq/L (5-15); Aspartate Aminotransferase 6 U/L (15-37); Blood Urea Nitrogen 30 mg/dL (7-18); Carbon Dioxide 26.9 meq/L (21.0-32.0); Chloride 108 meq/L (98-107); Glomerular Filtration Rate 71 mL/min (>89); Glucose,Random 143 mg/dL (74-106); Sodium 147 meq/L (136-145); Total Protein 6.5 g/dL (6.4-8.2)
[2017-12-28 06:40] LABS: Potassium 2.6 meq/L (3.5-5.1)
[2017-12-28] MEDS: Potassium Chlor 40 mEq Premix 40 MEQ/100 ML PIGGYBACK IV.SIG PRN ×2 (06:40→09:44)
[2017-12-28 06:56] LABS: Eosinophils 1 % (0-4); Lymphocytes 22 % (9-44); Monocytes 2 % (0-8); Platelet Estimate Normal (Normal); Platelet Morphology Normal (Normal); Toxic Vacuolation Present
[2017-12-28] MEDS: Famotidine PF Inj 20 MG/2 ML Vial IV.PUSH SCH ×2 (09:19→21:33)
[2017-12-28] MEDS: Chlorhexidine 0.12% Oral Kit 15 ML UDC OROPHARYNG SCH ×2 (10:42→21:35)
[2017-12-28] MEDS: Enoxaparin Inj 30 MG/0.3 ML Syringe SQ SCH (10:42)
[2017-12-28] MEDS: Senna/Docusate Sodium 8.6/50 MG Tablet PO SCH ×2 (10:43→21:33)
[2017-12-28] MEDS: Dextrose 5%/Lactated Ringer's 1,000 ML IV.CONT SCH (11:01)
--- NOTE | 2017-12-28 11:51 | P.PNID ---
Subjective Remarks: Sedated. On the ventilator. Afebrile. WBC is now down to normal. Post debridement 12/18/2017, 12/24/2017. 52-year-old white female who was brought to the emergency department after she fell at home. The patient was noted to have profound weakness. She was evaluated in the emergency department and at that time had normal temperature and white blood cell count was also normal. She underwent CT scan of the abdomen and pelvis that showed extensive subcutaneous and soft tissue gas bilaterally with the left greater than right, most severe in the left gluteal region and extending into the proximal posterior thigh soft tissue and air-fluid dissecting through the gluteal musculature. The patient has a history of diabetes mellitus. Antibiotics: Fluconazole daptomycin zosyn Allergies/Adverse Reactions: Allergies No Known Allergies Allergy (Verified 12/15/17 07:54) Objective Vital Signs 12/27/17 12:00 12/27/17 12:15 12/27/17 12:30 Temperature 97.9 F 97.9 F 97.9 F Pulse Rate 85 84 87 Respiratory Rate 17 Blood Pressure 112/64 103/59 L 119/63 Pulse Oximetry 97 97 97 12/27/17 12:45 12/27/17 13:00 12/27/17 13:15 Temperature 97.9 F 98.1 F 98.1 F Pulse Rate 84 77 82 Respiratory Rate Blood Pressure 115/61 108/58 L 110/62 Pulse Oximetry 96 97 97 12/27/17 13:30 12/27/17 13:45 12/27/17 14:00 Temperature 98.1 F 98.1 F 98.2 F Pulse Rate 85 76 96 H Respiratory Rate Blood Pressure 118/65 113/62 Pulse Oximetry 96 97 96 12/27/17 14:36 12/27/17 14:45 12/27/17 15:00 Temperature 98.1 F 97.7 F 97.7 F Pulse Rate 100 H 98 H 96 H Respiratory Rate Blood Pressure 131/76 126/76 Pulse Oximetry 94 L 91 L 92 L 12/27/17 15:14 12/27/17 15:15 12/27/17 15:30 Temperature 97.9 F 97.7 F 97.7 F Pulse Rate 93 H 94 H 92 H Respiratory Rate 16 Blood Pressure 128/77 127/74 133/81 Pulse Oximetry 93 L 93 L 93 L 12/27/17 15:45 12/27/17 16:00 12/27/17 16:01 Temperature 97.7 F 97.9 F Pulse Rate 85 92 H Respiratory Rate 18 Blood Pressure 130/74 140/79 Pulse Oximetry 93 L 93 L 93 L 12/27/17 16:15 12/27/17 16:30 12/27/17 16:45 Temperature 97.9 F 98.1 F 98.2 F Pulse Rate 88 88 89 Respiratory Rate Blood Pressure 158/69 H 136/74 138/75 Pulse Oximetry 93 L 93 L 93 L 12/27/17 17:00 12/27/17 17:15 12/27/17 17:30 Temperature 98.4 F 98.4 F 98.4 F Pulse Rate 113 H 110 H 111 H Respiratory Rate 16 16 Blood Pressure 146/81 H 150/82 H 150/81 H Pulse Oximetry 93 L 93 L 92 L 12/27/17 17:45 12/27/17 18:00 12/27/17 18:15 Temperature 98.4 F 98.4 F 98.6 F Pulse Rate 111 H 110 H 106 H Respiratory Rate 16 Blood Pressure 147/78 H 149/77 H 139/73 Pulse Oximetry 92 L 92 L 92 L 12/27/17 18:30 12/27/17 18:45 12/27/17 19:00 Temperature 98.6 F 98.6 F 98.6 F Pulse Rate 100 H 103 H 99 H Respiratory Rate 16 Blood Pressure 134/83 135/75 142/83 H Pulse Oximetry 93 L 92 L 92 L 12/27/17 19:15 12/27/17 19:30 12/27/17 19:45 Temperature 98.6 F 98.8 F 98.8 F Pulse Rate 95 H 96 H 92 H Respiratory Rate 16 Blood Pressure 133/74 131/72 126/72 Pulse Oximetry 92 L 92 L 92 L 12/27/17 20:00 12/27/17 20:15 12/27/17 20:30 Temperature 98.8 F 98.8 F 98.8 F Pulse Rate 95 H 96 H 101 H Respiratory Rate 16 Blood Pressure 129/73 128/75 135/75 Pulse Oximetry 92 L 92 L 92 L 12/27/17 20:45 12/27/17 20:47 12/27/17 21:00 Temperature 98.6 F 98.8 F Pulse Rate 96 H 101 H Respiratory Rate 16 16 Blood Pressure 125/64 137/77 Pulse Oximetry 93 L 93 L 92 L 12/27/17 21:15 12/27/17 21:30 12/27/17 21:45 Temperature 98.8 F 98.8 F 98.8 F Pulse Rate 101 H 99 H 95 H Respiratory Rate Blood Pressure 135/77 129/75 143/102 H Pulse Oximetry 92 L 92 L 91 L 12/27/17 21:46 12/27/17 22:00 12/27/17 22:15 Temperature 98.8 F 98.8 F 98.8 F Pulse Rate 93 H 95 H 96 H Respiratory Rate 16 Blood Pressure 136/78 134/86 136/74 Pulse Oximetry 91 L 92 L 91 L 12/27/17 22:30 12/27/17 22:45 12/27/17 23:00 Temperature 98.8 F 98.8 F 99.0 F Pulse Rate 95 H 100 H 93 H Respiratory Rate 17 Blood Pressure 129/75 135/70 140/68 Pulse Oximetry 91 L 92 L 92 L 12/27/17 23:15 12/27/17 23:30 12/27/17 23:45 Temperature 98.8 F 98.8 F 98.8 F Pulse Rate 97 H 89 79 Respiratory Rate Blood Pressure 142/65 H 136/60 113/63 Pulse Oximetry 92 L 92 L 92 L 12/28/17 00:00 12/28/17 00:15 12/28/17 00:30 Temperature 98.6 F 98.8 F 98.8 F Pulse Rate 93 H 94 H 92 H Respiratory Rate 16 Blood Pressure 121/68 128/70 116/69 Pulse Oximetry 91 L 91 L 91 L 12/28/17 00:45 12/28/17 01:00 12/28/17 01:15 Temperature 98.6 F 98.6 F 98.4 F Pulse Rate 78 75 68 Respiratory Rate 16 16 Blood Pressure 106/65 106/66 96/59 L Pulse Oximetry 92 L 92 L 92 L 12/28/17 01:30 12/28/17 01:45 12/28/17 02:00 Temperature 98.4 F 98.4 F 98.4 F Pulse Rate 75 72 71 Respiratory Rate 16 Blood Pressure 119/70 117/69 119/72 Pulse Oximetry 92 L 92 L 92 L 12/28/17 02:15 12/28/17 02:30 12/28/17 02:45 Temperature 98.4 F 98.4 F 98.2 F Pulse Rate 71 69 71 Respiratory Rate Blood Pressure 114/65 114/66 116/78 Pulse Oximetry 92 L 92 L 92 L 12/28/17 03:00 12/28/17 03:15 12/28/17 03:30 Temperature 98.2 F 98.2 F Pulse Rate 71 73 87 Respiratory Rate 16 16 Blood Pressure 115/69 114/69 125/75 Pulse Oximetry 92 L 92 L 92 L 12/28/17 03:45 12/28/17 04:00 12/28/17 04:15 Temperature 98.2 F Pulse Rate 86 87 78 Respiratory Rate 16 Blood Pressure 135/74 150/76 H 134/70 Pulse Oximetry 92 L 92 L 93 L 12/28/17 04:30 12/28/17 04:45 12/28/17 05:00 Temperature 98.2 F Pulse Rate 82 85 93 H Respiratory Rate 16 Blood Pressure 133/72 142/77 H 155/81 H Pulse Oximetry 93 L 93 L 93 L 12/28/17 05:05 12/28/17 05:15 12/28/17 05:30 Temperature 98.2 F Pulse Rate 82 89 Respiratory Rate 16 Blood Pressure 155/87 H 155/87 H Pulse Oximetry 93 L 93 L 92 L 12/28/17 05:45 12/28/17 06:00 12/28/17 06:15 Temperature 98.1 F 98.1 F Pulse Rate 82 102 H 89 Respiratory Rate 16 Blood Pressure 158/87 H 166/76 H 163/82 H Pulse Oximetry 93 L 96 94 L 12/28/17 06:22 12/28/17 06:30 12/28/17 06:45 Temperature Pulse Rate 86 88 89 Respiratory Rate Blood Pressure 164/81 H 149/67 H 149/71 H Pulse Oximetry 94 L 94 L 93 L 12/28/17 07:00 12/28/17 07:15 12/28/17 07:30 Temperature 97.5 F L 97.3 F L 97.5 F L Pulse Rate 82 74 88 Respiratory Rate 16 Blood Pressure 154/72 H 144/67 H 148/75 H Pulse Oximetry 93 L 93 L 92 L 12/28/17 07:45 12/28/17 08:00 12/28/17 08:15 Temperature 97.5 F L 97.5 F L 97.3 F L Pulse Rate 79 78 87 Respiratory Rate 16 Blood Pressure 133/69 142/73 H 153/67 H Pulse Oximetry 92 L 92 L 92 L 12/28/17 08:30 12/28/17 08:39 12/28/17 08:41 Temperature 97.5 F L 97.5 F L Pulse Rate 79 61 Respiratory Rate 17 Blood Pressure 185/66 H 152/67 H Pulse Oximetry 92 L 92 L 92 L 12/28/17 08:45 12/28/17 09:00 12/28/17 09:15 Temperature 97.5 F L 97.5 F L 97.5 F L Pulse Rate 93 H 78 75 Respiratory Rate Blood Pressure 171/83 H 150/67 H 147/68 H Pulse Oximetry 92 L 92 L 92 L 12/28/17 09:30 12/28/17 09:45 12/28/17 10:00 Temperature 97.5 F L 97.5 F L 97.5 F L Pulse Rate 82 84 67 Respiratory Rate Blood Pressure 149/89 H 151/79 H 139/78 Pulse Oximetry 92 L 93 L 92 L 12/28/17 10:15 12/28/17 10:30 12/28/17 10:45 Temperature 97.5 F L 97.5 F L 97.5 F L Pulse Rate 62 68 62 Respiratory Rate Blood Pressure 135/71 142/71 H 135/81 Pulse Oximetry 93 L 93 L 93 L 12/28/17 11:00 12/28/17 11:15 12/28/17 11:24 Temperature 97.7 F 97.7 F Pulse Rate 72 84 Respiratory Rate 24 Blood Pressure 141/73 H 129/85 Pulse Oximetry 93 L 93 L 92 L Intake & Output 12/27/17 12/28/17 12/28/17 18:59 06:59 18:59 Intake Total 3554 / 3554 725 / 725 200 / 200 Output Total 5850 / 5850 3630 / 3630 Balance -2296 / -2296 -2905 / -2905 200 / 200 Weight 75.2 kg Intake: IV 2450 / 2450 545 / 545 200 / 200 D5W/LR Inj 1,000 ML @ 75 mls/hr 1000 / 1000 IV.CONT .[id number] RICARDO Rx#: [id number] Diprivan 1000 mg/100 ml Inj 1, 100 / 100 100 / 100 100 / 100 000 mg In 100 ml @ 5 MCG/KG/MIN 1.837 mls/hr IV.CONT TITRATE PRN Rx#:[id number] Flexbumin 25% Inj 100 ML @ 60 100 / 100 100 / 100 mls/hr IV.SIG Q12H RICARDO Rx#: [id number] Cubicin Inj 400 MG In NS Inj 100 / 100 100 ML @ 200 mls/hr IV.SIG Q24H RICARDO Rx#:[id number] Diflucan 400 mg Premix Bag 200 200 / 200 ML @ 100 mls/hr IV.SIG Q24H RICARDO Rx#:[id number] Zosyn 4.5 GM Premix 4.5 gm In 200 / 200 100 / 100 100 / 100 100 ml @ 200 mls/hr IV.SIG Q6H RICARDO Rx#:[id number] NS Inj 250 ML @ 15 mls/hr IV. 500 / 500 SIG ONCE RICARDO Rx#:[id number] fentaNYL 10 mcg/mL Premix Drip 250 / 250 245 / 245 2,500 mcg In 250 ml @ 50 MCG/HR 5 mls/hr IV.SIG TITRATE PRN Rx #:[id number] Oral 0 / 0 Tube Feeding 204 / 204 120 / 120 Water Bolus Amount 100 / 100 60 / 60 Intake (Blood Product) Amt 800 / 800 Rbc As-3 Leukoreduced Unit 400 / 400 [id number] Rbc As-3 Leukoreduced Unit 400 / 400 [id number] Output: Stool 300 / 300 300 / 300 Estimated Blood Loss 30 / 30 Urine Amount (Catheter) 4750 / 4750 3000 / 3000 1 4750 / 4750 3000 / 3000 Gastric Drainage 0 / 0 Nasogastric Tube 0 / 0 Wound Drainage 800 / 800 300 / 300 Sacrum 800 / 800 300 / 300 Other: Mode Setting Posterior Sacrum Continuous Continuous Continuous Date of Last Bowel Movement 12/27/17 12/28/17 12/28/17 12/24/17 12:20 Tissue - Buttock Fungal Smear - Final Rare budding yeast 12/24/17 12:20 Tissue - Buttock Fungal Culture - Preliminary Talia albicans Talia tropicalis 12/24/17 12:20 Tissue - Buttock Gram Stain - Final 12/24/17 12:20 Tissue - Buttock Wound Culture - Final Talia albicans Talia tropicalis 12/24/17 12:20 Tissue - Buttock Acid Fast Bacilli Smear - Final No acid fast bacilli seen 12/24/17 12:20 Tissue - Buttock Mycobacterial Culture - Pending Lab - Hematology Results 12/27/17 12/27/17 12/28/17 04:30 12:39 05:30 WBC 13.6 H 9.5 RBC 2.14 L 2.97 L Hgb 6.4 L* 9.6 L D 9.1 L Hct 19.3 L* 27.6 L 25.7 L MCV 90.0 86.5 D MCH 30.1 30.8 MCHC 33.4 35.7 RDW 17.0 16.5 Plt Count 177 199 MPV 9.7 9.2 Prelim Diff (Auto) Slide review pending Slide review pending Neut % (Auto) 75.4 H 68.8 Lymph % (Auto) 19.0 24.2 [place] % (Auto) 3.7 5.7 Eos % (Auto) 0.9 0.9 Baso % (Auto) 1.0 0.4 Neut # (Auto) 10.3 H 6.5 Lymph # (Auto) 2.6 2.3 [place] # (Auto) 0.5 0.5 Eos # (Auto) 0.1 0.1 Baso # (Auto) 0.1 0.0 WBC Differential Manual diff final Manual diff final Seg Neuts % (Manual) 67 62 Band Neuts % (Manual) 8 H 12 H Lymphocytes % (Manual) 23 22 Monocytes % (Manual) 2 Eosinophils % (Manual) 1 Basophils % (Manual) 1 Metamyelocytes % (Man) 1 Myelocytes % (Man) 1 H Abs Neuts (Manual) 10.5 H 7.0 Differential Comment . . Toxic Vacuolation Present H Platelet Estimate Normal Normal Platelet Morphology Normal Normal Keratocytes Occ H Lab - Chemistry Results 12/26/17 12/26/17 12/26/17 11:49 17:26 19:37 Sodium Potassium Chloride Carbon Dioxide Anion Gap BUN Creatinine Estimated GFR POC Glucose 151 H 122 H 128 H Random Glucose Calcium Prot Corrected Calcium Total Bilirubin AST ALT Alkaline Phosphatase Total Protein Albumin 12/27/17 12/27/17 12/27/17 00:07 04:30 04:43 Sodium 135 L Potassium 3.5 Chloride 102 Carbon Dioxide 22.4 Anion Gap 11 BUN 33 H Creatinine 1.00 Estimated GFR 58 L POC Glucose 160 H 183 H Random Glucose 144 H Calcium 7.4 L* Prot Corrected Calcium 7.9 L D Total Bilirubin AST ALT Alkaline Phosphatase Total Protein 6.1 L Albumin 12/27/17 12/27/17 12/27/17 04:44 09:28 12:48 Sodium Potassium Chloride Carbon Dioxide Anion Gap BUN Creatinine Estimated GFR POC Glucose 159 H 153 H 168 H Random Glucose Calcium Prot Corrected Calcium Total Bilirubin AST ALT Alkaline Phosphatase Total Protein Albumin 12/27/17 12/27/17 12/28/17 21:30 23:50 03:50 Sodium Potassium Chloride Carbon Dioxide Anion Gap BUN Creatinine Estimated GFR POC Glucose 179 H 149 H 156 H Random Glucose Calcium Prot Corrected Calcium Total Bilirubin AST ALT Alkaline Phosphatase Total Protein Albumin 12/28/17 12/28/17 05:30 08:09 Sodium 147 H D Potassium 2.6 L* D Chloride 108 H Carbon Dioxide 26.9 Anion Gap 12 BUN 30 H Creatinine 0.84 Estimated GFR 71 L POC Glucose 176 H Random Glucose 143 H Calcium 8.0 L Prot Corrected Calcium Total Bilirubin 1.0 AST 6 L ALT 6 L Alkaline Phosphatase 197 H Total Protein 6.5 Albumin 2.4 L Imaging: ITS Impressions Femur X-Ray 12/15/17 07:05 CONCLUSION: No fracture is identified. There is extensive soft tissue air in the right gluteal region and extending into the proximal and mid posterior thigh. The soft tissue air suggests an open wound. Pelvis X-Ray 12/15/17 07:05 CONCLUSION: No fracture is identified. However, there is extensive soft tissue air in the left gluteal region and left proximal thigh. Pelvis CT 12/15/17 07:52 CONCLUSION: 1. No fracture is identified. 2. Extensive subcutaneous and soft tissue gas bilaterally, left greater than right. It is most severe in the left gluteal region and extends into the proximal posterior thigh. The soft tissue air dissects through the gluteal musculature. There is adjacent subcutaneous edema. Foot X-Ray 12/18/17 00:00 CONCLUSION: Remote small avulsion fracture at the fifth toe. No acute bony abnormality. Venous Doppler Study 12/22/17 00:00 CONCLUSION: Extensive deep vein thrombosis of the left upper extremity. Chest X-Ray 12/28/17 06:00 CONCLUSION: Unchanged exam. Physical Exam: PHYSICAL EXAMINATION: GENERAL: Sedated. Opens eyes. HEENT: Unable to assess fully. Mild icterus. Oropharynx intubated. NECK: Supple. No adenopathy or swelling. LUNGS: Breath sounds decreased. HEART: Regular S1 and S2. 1-2/6 systolic murmur at the left sternal border. ABDOMEN: Bowel sounds present, soft. BACK: Surgical wound post debridement across the lower back, buttock and thigh. Vac in place. EXTREMITIES: No clubbing, no cyanosis. Left upper extremity has 2+ edema. abrasion with dry necrotic changes at left dorsal toes 2-4. SKIN: No diffuse rash. Scattered ecchymotic lesions. NEUROLOGIC: Unable to assess. PSYCHIATRIC: Unable to assess. Assessment and Plan - Plan IMPRESSION: 1. Necrotizing fasciitis of the back, buttock and thigh. Cultures which were taken during treatment has Talia albicans and Talia tropicalis. Cultures which were taken on admission did not get to microbiology. 2. Septic shock. 3. Acute respiratory failure. 4. Chronic kidney disease. 5. Leukocytosis. WBC improved. 6. Left upper extremity DVT. Improved WBC may indicate improvement. RECOMMENDATIONS: 1. Continue Diflucan 2. Continue daptomycin which will cover VRE. 3. Continue Zosyn 4. Monitor white blood cell count 5. Monitor clinical status
--- NOTE | 2017-12-28 13:20 | P.PNCC ---
Subjective Subjective Remarks/Hospital Course: This 52-year-old woman with long-standing uncontrolled diabetes mellitus and severe peripheral arterial disease related to a long-term heavy smoking history was found down at her home and initial blood glucose was 610. Her lower back and buttocks was exquisitely tender and a mid line stage IV sacral decubitus was oozing purulent material and inflamed and the surrounding soft tissue. White count was not elevated but 90% neutrophils. Temperature 97 degrees. Moderately encephalopathic though conversant. X-rays revealed no fractures in the pelvis but CAT scan demonstrated extensive subcutaneous air emanating in both directions left and right from the mid sacral region. This is clearly necrotizing fasciitis or some other gas-forming infection and the woman is critically ill. She received vancomycin, Zosyn, and clindamycin antibiotic therapy as quickly as possible and was transferred to the ICU for ongoing resuscitation. Because of worsening hemodynamic stability she required intubation and mechanical ventilation followed by central line placement on arrival to the ICU. Insulin drip infusion was started in the emergency department and glucose had declined into the low 400s. She was not in ketoacidosis but lactic acid was elevated at 3.1. General surgery and orthopedic surgery were consulted for recommendations and it was felt that this woman was too unstable to tolerate an operative procedure immediately. We continue her ongoing resuscitation and trial in the ICU at this stage. 12/16: Following aggressive resuscitation yesterday for the treatment of severe hyperglycemia, septic shock, respiratory failure, metabolic acidosis, acute kidney injury, the patient went to the operating room with an extensive wide debridement bilateral gluteal and left thigh soft tissue and muscle. Primary antibiotic coverage at this point is vancomycin, cefepime, clindamycin. The patient started to make urine late yesterday afternoon and has continued to acceptable output since. Lactic acidosis is 2.0 this morning but metabolic acidosis persists despite bicarb drip. She remains on vasopressor support and hemodynamically unstable. 12/17: s/p debridement of large nec fasc wound. remains in shock today. also very hypoglycemic requiring multiple D50 amps overnight. 12/18: back in worsening shock. vasopressor support higher. required 2L crystalloid overnight and additional 1L and 500cc albumin today. ivc completely flat on bedside echo. LVEF hyperdynamic. no pericardial effusion. spoken with gen surg. plan to go back early to eval for worsening necrosis. fio2 also up to 100% and peep 10- hypoxic, likely early ARDS. 12/19: clinically doing better. still in shock on vasopressors, but requirements are lower and lactate cleared. Cr slowly uptrending. SVV still 19% today and appears to be volume responsive. gen surgery ordered 2 units prbc for falling hgb in the setting of blood loss with surgical intervention yesterday. fio2 improving. glycemic control also improving. 12/20: Markedly impaired oxygenation persists. Still requiring elevated end expiratory pressure. Nutritional support continues but she remains catabolic. It will be difficult to keep up with her nutritional needs. 12/21: Continued severe sepsis requiring vasopressor support and mechanical ventilation. Oxygenation remains impaired and smoldering metabolic acidosis persists. Despite hemodynamic instability the patient's only hope for survival is with infection source control through further debridement. Clearly a greatly increased risk however for any procedure. 12/22: Persistent septic shock course requiring vasopressor support and regular debridement. Good antibiotic coverage but she continues to require adjustment of ventilator, hemodynamic support drugs, antibiotics, intravenous fluids. Her nutritional status was quite depleted on arrival and continues to deteriorate despite adjuvant nutrition. 12/23: Patient continues septic course. She has developed venous clot throughout her left internal jugular subclavian and axillary vein system. Not a candidate for full anticoagulation because of need for frequent surgical debridement. We will pull out the catheter today and placing In the right subclavian route. 12/24 remains critically ill and septic remains on Rj-Synephrine at 50 mcg/kg/ min. WBC count increasing 20 6K today. Antibiotics have been changed by ID. Diflucan added for Talia UTI. Plan for OR today per surgery 12/25: Went to OR yesterday, s/p Incision, drainage with excisional debridement of back, buttock, thigh, and VAC change. Main septic White count increasing 31, 000 today, remains on pressors vasopressin and Rj-Synephrine. 12/26: Remains critical remains on vasopressin to maintain blood pressure and map above 65, currently off Rj-Synephrine. Remains severely fluid overloaded approximately 20 kg up. Despite pressor use will start IV diuretics to achieve negative fluid balance 12/27: Intubated sedated but more awake follows some commands. Hemoglobin down to 6.4, 2 g dropped, receiving 2 units of PRBC. No obvious bleeding noted. Currently had been weaned off the pressors. Or planned for tomorrow again 12/28: OR today for wound VAC change and I&D, possible tracheostomy. Potassium is 2.6 getting replaced. Hemoglobin stable. Remains off pressors. Urine output almost 8 L with forced diuresis Objective Vital Signs / I&O: Vital Signs 12/27/17 13:15 12/27/17 13:30 12/27/17 13:45 Temperature 98.1 F 98.1 F 98.1 F Pulse Rate 82 85 76 Respiratory Rate Blood Pressure 110/62 118/65 113/62 Pulse Oximetry 97 96 97 12/27/17 14:00 12/27/17 14:36 12/27/17 14:45 Temperature 98.2 F 98.1 F 97.7 F Pulse Rate 96 H 100 H 98 H Respiratory Rate Blood Pressure 131/76 126/76 Pulse Oximetry 96 94 L 91 L 12/27/17 15:00 12/27/17 15:14 12/27/17 15:15 Temperature 97.7 F 97.9 F 97.7 F Pulse Rate 96 H 93 H 94 H Respiratory Rate 16 Blood Pressure 128/77 127/74 Pulse Oximetry 92 L 93 L 93 L 12/27/17 15:30 12/27/17 15:45 12/27/17 16:00 Temperature 97.7 F 97.7 F 97.9 F Pulse Rate 92 H 85 92 H Respiratory Rate Blood Pressure 133/81 130/74 140/79 Pulse Oximetry 93 L 93 L 93 L 12/27/17 16:01 12/27/17 16:15 12/27/17 16:30 Temperature 97.9 F 98.1 F Pulse Rate 88 88 Respiratory Rate 18 Blood Pressure 158/69 H 136/74 Pulse Oximetry 93 L 93 L 93 L 12/27/17 16:45 12/27/17 17:00 12/27/17 17:15 Temperature 98.2 F 98.4 F 98.4 F Pulse Rate 89 113 H 110 H Respiratory Rate 16 Blood Pressure 138/75 146/81 H 150/82 H Pulse Oximetry 93 L 93 L 93 L 12/27/17 17:30 12/27/17 17:45 12/27/17 18:00 Temperature 98.4 F 98.4 F 98.4 F Pulse Rate 111 H 111 H 110 H Respiratory Rate 16 16 Blood Pressure 150/81 H 147/78 H 149/77 H Pulse Oximetry 92 L 92 L 92 L 12/27/17 18:15 12/27/17 18:30 12/27/17 18:45 Temperature 98.6 F 98.6 F 98.6 F Pulse Rate 106 H 100 H 103 H Respiratory Rate Blood Pressure 139/73 134/83 135/75 Pulse Oximetry 92 L 93 L 92 L 12/27/17 19:00 12/27/17 19:15 12/27/17 19:30 Temperature 98.6 F 98.6 F 98.8 F Pulse Rate 99 H 95 H 96 H Respiratory Rate 16 16 Blood Pressure 142/83 H 133/74 131/72 Pulse Oximetry 92 L 92 L 92 L 12/27/17 19:45 12/27/17 20:00 12/27/17 20:15 Temperature 98.8 F 98.8 F 98.8 F Pulse Rate 92 H 95 H 96 H Respiratory Rate 16 Blood Pressure 126/72 129/73 128/75 Pulse Oximetry 92 L 92 L 92 L 12/27/17 20:30 12/27/17 20:45 12/27/17 20:47 Temperature 98.8 F 98.6 F Pulse Rate 101 H 96 H Respiratory Rate 16 Blood Pressure 135/75 125/64 Pulse Oximetry 92 L 93 L 93 L 12/27/17 21:00 12/27/17 21:15 12/27/17 21:30 Temperature 98.8 F 98.8 F 98.8 F Pulse Rate 101 H 101 H 99 H Respiratory Rate 16 Blood Pressure 137/77 135/77 129/75 Pulse Oximetry 92 L 92 L 92 L 12/27/17 21:45 12/27/17 21:46 12/27/17 22:00 Temperature 98.8 F 98.8 F 98.8 F Pulse Rate 95 H 93 H 95 H Respiratory Rate 16 Blood Pressure 143/102 H 136/78 134/86 Pulse Oximetry 91 L 91 L 92 L 12/27/17 22:15 12/27/17 22:30 12/27/17 22:45 Temperature 98.8 F 98.8 F 98.8 F Pulse Rate 96 H 95 H 100 H Respiratory Rate Blood Pressure 136/74 129/75 135/70 Pulse Oximetry 91 L 91 L 92 L 12/27/17 23:00 12/27/17 23:15 12/27/17 23:30 Temperature 99.0 F 98.8 F 98.8 F Pulse Rate 93 H 97 H 89 Respiratory Rate 17 Blood Pressure 140/68 142/65 H 136/60 Pulse Oximetry 92 L 92 L 92 L 12/27/17 23:45 12/28/17 00:00 12/28/17 00:15 Temperature 98.8 F 98.6 F 98.8 F Pulse Rate 79 93 H 94 H Respiratory Rate 16 Blood Pressure 113/63 121/68 128/70 Pulse Oximetry 92 L 91 L 91 L 12/28/17 00:30 12/28/17 00:45 12/28/17 01:00 Temperature 98.8 F 98.6 F 98.6 F Pulse Rate 92 H 78 75 Respiratory Rate 16 16 Blood Pressure 116/69 106/65 106/66 Pulse Oximetry 91 L 92 L 92 L 12/28/17 01:15 12/28/17 01:30 12/28/17 01:45 Temperature 98.4 F 98.4 F 98.4 F Pulse Rate 68 75 72 Respiratory Rate Blood Pressure 96/59 L 119/70 117/69 Pulse Oximetry 92 L 92 L 92 L 12/28/17 02:00 12/28/17 02:15 12/28/17 02:30 Temperature 98.4 F 98.4 F 98.4 F Pulse Rate 71 71 69 Respiratory Rate 16 Blood Pressure 119/72 114/65 114/66 Pulse Oximetry 92 L 92 L 92 L 12/28/17 02:45 12/28/17 03:00 12/28/17 03:15 Temperature 98.2 F 98.2 F 98.2 F Pulse Rate 71 71 73 Respiratory Rate 16 16 Blood Pressure 116/78 115/69 114/69 Pulse Oximetry 92 L 92 L 92 L 12/28/17 03:30 12/28/17 03:45 12/28/17 04:00 Temperature 98.2 F Pulse Rate 87 86 87 Respiratory Rate 16 Blood Pressure 125/75 135/74 150/76 H Pulse Oximetry 92 L 92 L 92 L 12/28/17 04:15 12/28/17 04:30 12/28/17 04:45 Temperature Pulse Rate 78 82 85 Respiratory Rate Blood Pressure 134/70 133/72 142/77 H Pulse Oximetry 93 L 93 L 93 L 12/28/17 05:00 12/28/17 05:05 12/28/17 05:15 Temperature 98.2 F Pulse Rate 93 H 82 Respiratory Rate 16 16 Blood Pressure 155/81 H 155/87 H Pulse Oximetry 93 L 93 L 93 L 12/28/17 05:30 12/28/17 05:45 12/28/17 06:00 Temperature 98.2 F 98.1 F 98.1 F Pulse Rate 89 82 102 H Respiratory Rate 16 Blood Pressure 155/87 H 158/87 H 166/76 H Pulse Oximetry 92 L 93 L 96 12/28/17 06:15 12/28/17 06:22 12/28/17 06:30 Temperature Pulse Rate 89 86 88 Respiratory Rate Blood Pressure 163/82 H 164/81 H 149/67 H Pulse Oximetry 94 L 94 L 94 L 12/28/17 06:45 12/28/17 07:00 12/28/17 07:15 Temperature 97.5 F L 97.3 F L Pulse Rate 89 82 74 Respiratory Rate 16 Blood Pressure 149/71 H 154/72 H 144/67 H Pulse Oximetry 93 L 93 L 93 L 12/28/17 07:30 12/28/17 07:45 12/28/17 08:00 Temperature 97.5 F L 97.5 F L 97.5 F L Pulse Rate 88 79 78 Respiratory Rate 16 Blood Pressure 148/75 H 133/69 142/73 H Pulse Oximetry 92 L 92 L 92 L 12/28/17 08:15 12/28/17 08:30 12/28/17 08:39 Temperature 97.3 F L 97.5 F L 97.5 F L Pulse Rate 87 79 61 Respiratory Rate Blood Pressure 153/67 H 185/66 H 152/67 H Pulse Oximetry 92 L 92 L 92 L 12/28/17 08:41 12/28/17 08:45 12/28/17 09:00 Temperature 97.5 F L 97.5 F L Pulse Rate 93 H 78 Respiratory Rate 17 Blood Pressure 171/83 H 150/67 H Pulse Oximetry 92 L 92 L 92 L 12/28/17 09:15 12/28/17 09:30 12/28/17 09:45 Temperature 97.5 F L 97.5 F L 97.5 F L Pulse Rate 75 82 84 Respiratory Rate Blood Pressure 147/68 H 149/89 H 151/79 H Pulse Oximetry 92 L 92 L 93 L 12/28/17 10:00 12/28/17 10:15 12/28/17 10:30 Temperature 97.5 F L 97.5 F L 97.5 F L Pulse Rate 67 62 68 Respiratory Rate Blood Pressure 139/78 135/71 142/71 H Pulse Oximetry 92 L 93 L 93 L 12/28/17 10:45 12/28/17 11:00 12/28/17 11:15 Temperature 97.5 F L 97.7 F 97.7 F Pulse Rate 62 72 84 Respiratory Rate Blood Pressure 135/81 141/73 H 129/85 Pulse Oximetry 93 L 93 L 93 L 12/28/17 11:24 Temperature Pulse Rate Respiratory Rate 24 Blood Pressure Pulse Oximetry 92 L Intake & Output 12/27/17 12/28/17 12/28/17 18:59 06:59 18:59 Intake Total 3554 / 3554 725 / 725 200 / 200 Output Total 5850 / 5850 3630 / 3630 Balance -2296 / -2296 -2905 / -2905 200 / 200 Weight 75.2 kg Intake: IV 2450 / 2450 545 / 545 200 / 200 D5W/LR Inj 1,000 ML @ 75 mls/hr 1000 / 1000 IV.CONT .[id number] RICARDO Rx#: [id number] Diprivan 1000 mg/100 ml Inj 1, 100 / 100 100 / 100 100 / 100 000 mg In 100 ml @ 5 MCG/KG/MIN 1.837 mls/hr IV.CONT TITRATE PRN Rx#:[id number] Flexbumin 25% Inj 100 ML @ 60 100 / 100 100 / 100 mls/hr IV.SIG Q12H RICARDO Rx#: [id number] Cubicin Inj 400 MG In NS Inj 100 / 100 100 ML @ 200 mls/hr IV.SIG Q24H RICARDO Rx#:[id number] Diflucan 400 mg Premix Bag 200 200 / 200 ML @ 100 mls/hr IV.SIG Q24H RICARDO Rx#:[id number] Zosyn 4.5 GM Premix 4.5 gm In 200 / 200 100 / 100 100 / 100 100 ml @ 200 mls/hr IV.SIG Q6H RICARDO Rx#:[id number] NS Inj 250 ML @ 15 mls/hr IV. 500 / 500 SIG ONCE RICARDO Rx#:[id number] fentaNYL 10 mcg/mL Premix Drip 250 / 250 245 / 245 2,500 mcg In 250 ml @ 50 MCG/HR 5 mls/hr IV.SIG TITRATE PRN Rx #:[id number] Oral 0 / 0 Tube Feeding 204 / 204 120 / 120 Water Bolus Amount 100 / 100 60 / 60 Intake (Blood Product) Amt 800 / 800 Rbc As-3 Leukoreduced Unit 400 / 400 [id number] Rbc As-3 Leukoreduced Unit 400 / 400 [id number] Output: Stool 300 / 300 300 / 300 Estimated Blood Loss 30 / 30 Urine Amount (Catheter) 4750 / 4750 3000 / 3000 1 4750 / 4750 3000 / 3000 Gastric Drainage 0 / 0 Nasogastric Tube 0 / 0 Wound Drainage 800 / 800 300 / 300 Sacrum 800 / 800 300 / 300 Other: Mode Setting Posterior Sacrum Continuous Continuous Continuous Date of Last Bowel Movement 12/27/17 12/28/17 12/28/17 Result Diagrams: 12/28/17 05:30 12/28/17 05:30 Objective Remarks: General: Ill-appearing middle-aged woman, intubated and lightly sedated. Overall anasarca present Head: Atraumatic, edentulous Neck: Supple, orotracheal intubation Lungs: equal chest rise. Scattered rhonchi but acceptable air movement. peep 8. Heart: tachycardic rate and regular rhythm. no JVD. Abdomen: Soft, no guarding, no peritoneal irritation. Back: Wound VAC in place over lower lumbar region there is a moderate erythema to the skin over the pelvis and buttocks. Extremities: Warm, adequately perfused, status post below-knee amputation right side, necrotic ulceration over several toes left foot. Generalized edema involving the left arm. Generalized anasarca Neurological: Intubated and sedated, moves 4 limbs to stimulation. Pupils responsive. Follows commands when sedation is lightened Assessment and Plan - Problem List (1) Septic shock with acute organ dysfunction due to anaerobic bacteria Code(s): A41.4 - Sepsis due to anaerobes; R65.21 - Severe sepsis with septic shock Status: Acute (2) Acute respiratory failure Code(s): J96.00 - Acute respiratory failure, unspecified whether with hypoxia or hypercapnia Status: Acute (3) Necrotizing fasciitis Code(s): M72.6 - Necrotizing fasciitis Status: Acute (4) Type 2 diabetes mellitus with hyperosmolar nonketotic hyperglycemia Code(s): E11.01 - Type 2 diabetes mellitus with hyperosmolarity with coma Status: Acute (5) MARIO (acute kidney injury) Code(s): N17.9 - Acute kidney failure, unspecified Status: Acute (6) Lactic acidosis Code(s): E87.2 - Acidosis Status: Acute - Assessment and Plan Plan: Assessment: 52yF with large necrotizing soft tissue infection of the lower back and sacrum complicated by septic shock and multiorgan dysfunction. OR today for further I&D, wound VAC change and tracheostomy Plan: Neurological Acute metabolic encephalopathy -Sedation with propofol, Analgesia with fentanyl -Encephalopathy largely due to sepsis and hyperglycemia, -RASS goal -1. Following commands today Cardiovascular Septic Shock- improving Myocardial dysfunction secondary to septic shock Fluid overload - Currently remains off all pressors - s/p 2 units of prbc for ongoing blood loss and anemia will help with intravascular volume expansion as well. - Receiving 2 units PRBC 12/27/2017 for hemoglobin of 6.4 - Follow acid-base balance closely - IV Lasix started yesterday due to fluid overload 20 mg every 12 with excellent response - Continue potassium replacement Respiratory Acute hypoxic and hypercarbic respiratory failure- persistent - Intubation and mechanical ventilation, Bronchodilators. Plan for tracheostomy today - HOB elevated, vent bundle. wean fio2 for goal spo2 > 90% - no weaning of mechanical ventilation until shock improves - Trach in OR 12/28/17. Discussed with Dr. Paris Endocrinology Diabetes Severe hypoglycemia - Holding Levemir - Med scale SSI. - Follow potassium and magnesium closely Hematology/Infectious Disease Septic Shock Necrotizing soft tissue infection - Follow white count and platelet count closely. - Continue daptomycin and Zosyn. ID Stopped clindamycin. - Diflucan for fungal coverage. - OR per general surgery, next planned for I&D and wound VAC change on Sunday GI Acute protein calorie malnutrition- severe - prealbumin 5 on 12/18. severely malnourished. - daily bmp, mg, phos - Tube feeds infusing Acute kidney injury - Tristan required for hourly urine output and to protect perineal region - High risk for further deterioration in renal function - IV Lasix as above HEME Left upper extremity DVT - DVT left internal jugular, subclavian, axillary and distal arm veins. - Cannot anticoagulate secondary to blood loss anemia requiring blood transfusion, frequent surgeries Prophylaxis - Pepcid for GI ulcer prophylaxis - SCDs for DVT prophylaxis - Hold chemical DVT prophylaxis until ongoing surgical decisions regarding further debridement are made Lines: Left subclavian central venous line placed 12/15, discontinued 12/23. Right subclavian central venous line placed 12/23 Overall impression: This woman is critically ill and in septic shock with necrotizing fasciitis emanating from a deep chronic sacral decubitus ulcer. She remains hemodynamically unstable and requiring vasopressor support. Peripheral perfusion and urine output is acceptable. Critical care 35 minutes D/W Dr. paris
[2017-12-28] MEDS: DAPTOmycin Inj 400 MG in Sodium Chlor 0.9% Inj 100 ML IV.SIG SCH (13:40)
[2017-12-28] MEDS: Potassium Bicarbonate 25 MEQ Effervescent Tablet NG/OG SCH ×2 (15:51→21:33)
--- NOTE | 2017-12-28 15:57 | P.OP ---
- Preoperative Diagnosis (1) Necrotizing fasciitis of pelvic region and thigh (2) Acute respiratory failure - Postoperative Diagnosis (1) Necrotizing fasciitis of pelvic region and thigh (2) Acute respiratory failure Procedure: perc trach, wound vac change to back, buttock, posterior thigh Anesthesia: MILENA Surgeon: Ventura Bazzi MD Estimated blood loss (mL): 10 Pathology: none sent Operation and Findings: good bs, good et co2 exchange better granulation tissue
[2017-12-28] MEDS ORDERED: Lidocaine 1%/Epinephrine 1:100,000 Inj 30 ML Vial ONE (16:07)
[2017-12-29] MEDS: Piperacil/Tazo 4.5 GM Premix 4.5 GM/100 ML BAG IV.SIG SCH ×4 (00:53→18:00)
[2017-12-29] MEDS: Oral Hygiene Kit OROPHARYNG SCH ×4 (00:54→17:15)
[2017-12-29] MEDS: Insulin NovoLIN Regular Correctional Sugar Inj SQ SCH ×6 (00:55→20:55)
[2017-12-29] MEDS: Albumin Human 25% Inj 100 ML IV.SIG SCH ×2 (01:50→14:07)
[2017-12-29] MEDS: Dextrose 50% in Water 50 ML Vial IV.PUSH PRN (04:45)
[2017-12-29 04:48] LABS: Hematocrit 24.5 % (35.0-46.0); Hemoglobin 8.6 gm/dL (11.6-15.3); Mean Corpuscular Volume 88.6 fL (80.0-100.0); Mean Platelet Volume 8.4 fL (7.0-11.0); Platelet Count 179 th/mm3 (150-450); Red Blood Count 2.77 mil/mm3 (4.00-5.30); White Blood Count 8.5 th/mm3 (4.0-11.0)
[2017-12-29 05:20] LABS: Alanine Aminotransferase 7 U/L (10-53); Albumin 2.6 g/dL (3.4-5.0); Anion Gap 10 meq/L (5-15); Aspartate Aminotransferase 5 U/L (15-37); Blood Urea Nitrogen 23 mg/dL (7-18); Calcium 7.7 mg/dL (8.5-10.1); Carbon Dioxide 27.9 meq/L (21.0-32.0); Chloride 113 meq/L (98-107); Glomerular Filtration Rate 81 mL/min (>89); Potassium 3.1 meq/L (3.5-5.1); Sodium 151 meq/L (136-145)
[2017-12-29 05:23] LABS: Alkaline Phosphatase 155 U/L (45-117); Total Protein 6.4 g/dL (6.4-8.2)
[2017-12-29 05:30] LABS: Glucose,Random 44 mg/dL (74-106)
[2017-12-29] MEDS: Famotidine PF Inj 20 MG/2 ML Vial IV.PUSH SCH ×2 (08:43→20:56)
[2017-12-29] MEDS: Potassium Bicarbonate 25 MEQ Effervescent Tablet NG/OG SCH ×2 (08:43→20:56)
[2017-12-29] MEDS: Senna/Docusate Sodium 8.6/50 MG Tablet PO SCH ×2 (08:43→20:56)
[2017-12-29] MEDS: Potassium Chlor 40 mEq Premix 40 MEQ/100 ML PIGGYBACK IV.SIG PRN (08:44)
[2017-12-29] MEDS: Chlorhexidine 0.12% Oral Kit 15 ML UDC OROPHARYNG SCH ×2 (08:45→20:56)
[2017-12-29] MEDS: Enoxaparin Inj 30 MG/0.3 ML Syringe SQ SCH (08:45)
[2017-12-29] MEDS: Propofol 1000 mg/100 ml Inj 1,000 MG/100 ML BOTTLE IV.CONT PRN ×2 (08:46→19:38)
[2017-12-29] MEDS: fentaNYL 10 mcg/mL Premix Drip 2,500 MCG/250 ML BAG IV.SIG PRN ×2 (10:46→19:39)
[2017-12-29] MEDS: DAPTOmycin Inj 400 MG in Sodium Chlor 0.9% Inj 100 ML IV.SIG SCH (12:52)
--- NOTE | 2017-12-29 13:02 | P.PNGS ---
Subjective Patient reports: no new complaints Physical Exam Vital signs: Vital Signs 12/28/17 13:15 12/28/17 13:30 12/28/17 13:45 Temperature 97.7 F 97.7 F 97.5 F L Pulse Rate 69 72 88 Respiratory Rate Blood Pressure 136/78 132/76 146/82 H Pulse Oximetry 92 L 92 L 92 L 12/28/17 14:00 12/28/17 14:15 12/28/17 14:30 Temperature 97.5 F L 97.5 F L 97.3 F L Pulse Rate 80 81 81 Respiratory Rate Blood Pressure 140/75 124/87 152/74 H Pulse Oximetry 92 L 93 L 91 L 12/28/17 14:45 12/28/17 15:00 12/28/17 16:33 Temperature 97.5 F L 97.3 F L Pulse Rate 89 Respiratory Rate Blood Pressure 158/75 H 120/61 Pulse Oximetry 91 L 95 100 12/28/17 16:46 12/28/17 16:54 12/28/17 17:00 Temperature Pulse Rate 85 88 Respiratory Rate 16 16 Blood Pressure 129/64 Pulse Oximetry 100 100 100 12/28/17 18:00 12/28/17 18:50 12/28/17 19:00 Temperature Pulse Rate 92 H 73 84 Respiratory Rate 16 16 16 Blood Pressure 166/76 H Pulse Oximetry 100 100 100 12/28/17 20:00 12/28/17 21:00 12/28/17 21:01 Temperature Pulse Rate 82 77 76 Respiratory Rate 16 17 16 Blood Pressure 144/67 H Pulse Oximetry 100 100 100 12/28/17 21:24 12/28/17 22:00 12/28/17 23:00 Temperature Pulse Rate 96 H 86 Respiratory Rate 16 17 16 Blood Pressure Pulse Oximetry 100 100 100 12/28/17 23:11 12/28/17 23:43 12/29/17 00:00 Temperature 98.1 F Pulse Rate 79 86 Respiratory Rate 16 17 16 Blood Pressure 120/73 Pulse Oximetry 100 100 100 12/29/17 01:00 12/29/17 01:38 12/29/17 02:00 Temperature Pulse Rate 66 89 88 Respiratory Rate 16 19 Blood Pressure 163/77 H Pulse Oximetry 100 100 100 12/29/17 03:00 12/29/17 03:35 12/29/17 04:00 Temperature 97.9 F Pulse Rate 98 H 76 86 Respiratory Rate 20 16 17 Blood Pressure 140/71 153/76 H Pulse Oximetry 100 100 100 12/29/17 04:17 12/29/17 05:00 12/29/17 06:00 Temperature Pulse Rate 72 102 H Respiratory Rate 16 16 31 H Blood Pressure 144/68 H 158/77 H Pulse Oximetry 100 100 100 12/29/17 07:00 12/29/17 08:00 12/29/17 09:00 Temperature Pulse Rate 90 76 82 Respiratory Rate 16 16 16 Blood Pressure 146/68 H 134/65 145/74 H Pulse Oximetry 100 100 100 12/29/17 10:00 12/29/17 10:12 12/29/17 11:00 Temperature Pulse Rate 92 H 97 H Respiratory Rate 17 17 17 Blood Pressure 144/70 H 143/74 H Pulse Oximetry 100 100 100 12/29/17 12:00 Temperature Pulse Rate 106 H Respiratory Rate 29 H Blood Pressure 151/79 H Pulse Oximetry 100 Intake & Output 12/28/17 12/29/17 12/29/17 18:59 06:59 18:59 Intake Total 2450 / 2450 640 / 640 402 / 402 Output Total 2190 / 2190 3125 / 3125 Balance 260 / 260 -2485 / -2485 402 / 402 Weight 73.3 kg Intake: IV 2150 / 2150 640 / 640 402 / 402 D5W/LR Inj 1,000 ML @ 40 mls/hr 1000 / 1000 IV.CONT .Q24H R[facility]O Rx#:[id number] Diprivan 1000 mg/100 ml Inj 1, 100 / 100 90 / 90 52 / 52 000 mg In 100 ml @ 5 MCG/KG/MIN 1.837 mls/hr IV.CONT TITRATE PRN Rx#:[id number] Flexbumin 25% Inj 100 ML @ 60 100 / 100 100 / 100 mls/hr IV.SIG Q12H R[facility]O Rx#: [id number] Cubicin Inj 400 MG In NS Inj 100 / 100 100 ML @ 200 mls/hr IV.SIG Q24H [facility] Rx#:[id number] Diflucan 400 mg Premix Bag 200 200 / 200 ML @ 100 mls/hr IV.SIG Q24H [facility] Rx#:[id number] Zosyn 4.5 GM Premix 4.5 gm In 200 / 200 200 / 200 100 / 100 100 ml @ 200 mls/hr IV.SIG Q6H [facility] Rx#:[id number] KCl 40 mEq Premix Inj 40 meq In 200 / 200 100 ml @ 25 mls/hr IV.SIG Q2H PRN Rx#:[id number] fentaNYL 10 mcg/mL Premix Drip 250 / 250 250 / 250 250 / 250 2,500 mcg In 250 ml @ 50 MCG/HR 5 mls/hr IV.SIG TITRATE PRN Rx #:[id number] Oral 0 / 0 Tube Feeding 0 / 0 Water Bolus Amount 0 / 0 Anesthesia Amount 300 / 300 Output: Stool 400 / 400 50 / 50 Estimated Blood Loss 40 / 40 Urine Amount (Catheter) 1500 / 1500 2750 / 2750 1 1500 / 1500 2750 / 2750 Gastric Drainage 0 / 0 Nasogastric Tube 0 / 0 Wound Drainage 250 / 250 Sacrum 250 / 250 Wound Vac Amount 325 / 325 Posterior Sacrum 325 / 325 Other: Mode Setting Posterior Sacrum Continuous Continuous Continuous Date of Last Bowel Movement 12/28/17 12/29/17 12/29/17 - Constitutional no acute distress Comments: vented - Routine Extremities Exam Comments: VAC intact, functioning - Urinary Catheter Management 1 Cath placed during this visit: yes Reason for continuing: Hourly intake/output Insertion date: 12/15/17 Results - Labs 12/29/17 04:30 12/29/17 04:30 Laboratory Results - last 24 hr 12/28/17 12/28/17 12/28/17 12:59 14:00 22:12 WBC RBC Hgb Hct MCV MCH MCHC RDW Plt Count MPV Sodium Potassium 3.9 D Chloride Carbon Dioxide Anion Gap BUN Creatinine Estimated GFR POC Glucose 164 H 283 H Random Glucose Calcium Total Bilirubin AST ALT Alkaline Phosphatase Total Protein Albumin 12/29/17 12/29/17 12/29/17 00:44 04:30 04:30 WBC 8.5 RBC 2.77 L Hgb 8.6 L Hct 24.5 L MCV 88.6 MCH 31.0 MCHC 35.0 RDW 17.0 Plt Count 179 MPV 8.4 Sodium 151 H Potassium 3.1 L D Chloride 113 H Carbon Dioxide 27.9 Anion Gap 10 BUN 23 H Creatinine 0.75 Estimated GFR 81 L POC Glucose 217 H Random Glucose 44 L* Calcium 7.7 L Total Bilirubin 0.6 AST 5 L ALT 7 L Alkaline Phosphatase 155 H Total Protein 6.4 Albumin 2.6 L 12/29/17 12/29/17 12/29/17 04:36 04:38 05:17 WBC RBC Hgb Hct MCV MCH MCHC RDW Plt Count MPV Sodium Potassium Chloride Carbon Dioxide Anion Gap BUN Creatinine Estimated GFR POC Glucose 57 L 60 L 86 Random Glucose Calcium Total Bilirubin AST ALT Alkaline Phosphatase Total Protein Albumin 12/29/17 12/29/17 12/29/17 05:33 08:16 11:56 WBC RBC Hgb Hct MCV MCH MCHC RDW Plt Count MPV Sodium Potassium Chloride Carbon Dioxide Anion Gap BUN Creatinine Estimated GFR POC Glucose 131 H 109 121 H Random Glucose Calcium Total Bilirubin AST ALT Alkaline Phosphatase Total Protein Albumin - Imaging Imaging: ITS Impressions Femur X-Ray 12/15/17 07:05 CONCLUSION: No fracture is identified. There is extensive soft tissue air in the right gluteal region and extending into the proximal and mid posterior thigh. The soft tissue air suggests an open wound. Pelvis X-Ray 12/15/17 07:05 CONCLUSION: No fracture is identified. However, there is extensive soft tissue air in the left gluteal region and left proximal thigh. Pelvis CT 12/15/17 07:52 CONCLUSION: 1. No fracture is identified. 2. Extensive subcutaneous and soft tissue gas bilaterally, left greater than right. It is most severe in the left gluteal region and extends into the proximal posterior thigh. The soft tissue air dissects through the gluteal musculature. There is adjacent subcutaneous edema. Foot X-Ray 12/18/17 00:00 CONCLUSION: Remote small avulsion fracture at the fifth toe. No acute bony abnormality. Venous Doppler Study 12/22/17 00:00 CONCLUSION: Extensive deep vein thrombosis of the left upper extremity. Chest X-Ray 12/28/17 06:00 CONCLUSION: Unchanged exam. Assessment and Plan - Assessment (1) Necrotizing fasciitis of pelvic region and thigh Code(s): M72.6 - Necrotizing fasciitis Status: Acute Plan: 52yo female with multiple medical comorbidities, s/p debridement of nec fasc -Remains critically ill -off pressors -Plan for vac change Sunday in the OR -Obtain consents -Continue TF for today; NPO after MN Sunday night -ID following
--- NOTE | 2017-12-29 14:10 | P.PNPOD ---
Physical Exam Vital signs: Vital Signs 12/28/17 14:15 12/28/17 14:30 12/28/17 14:45 Temperature 97.5 F L 97.3 F L 97.5 F L Pulse Rate 81 81 89 Respiratory Rate Blood Pressure 124/87 152/74 H 158/75 H Pulse Oximetry 93 L 91 L 91 L 12/28/17 15:00 12/28/17 16:33 12/28/17 16:46 Temperature 97.3 F L Pulse Rate 85 Respiratory Rate 16 Blood Pressure 120/61 129/64 Pulse Oximetry 95 100 100 12/28/17 16:54 12/28/17 17:00 12/28/17 18:00 Temperature Pulse Rate 88 92 H Respiratory Rate 16 16 Blood Pressure Pulse Oximetry 100 100 100 12/28/17 18:50 12/28/17 19:00 12/28/17 20:00 Temperature Pulse Rate 73 84 82 Respiratory Rate 16 16 16 Blood Pressure 166/76 H Pulse Oximetry 100 100 100 12/28/17 21:00 12/28/17 21:01 12/28/17 21:24 Temperature Pulse Rate 77 76 Respiratory Rate 17 16 16 Blood Pressure 144/67 H Pulse Oximetry 100 100 100 12/28/17 22:00 12/28/17 23:00 12/28/17 23:11 Temperature Pulse Rate 96 H 86 79 Respiratory Rate 17 16 16 Blood Pressure 120/73 Pulse Oximetry 100 100 100 12/28/17 23:43 12/29/17 00:00 12/29/17 01:00 Temperature 98.1 F Pulse Rate 86 66 Respiratory Rate 17 16 16 Blood Pressure Pulse Oximetry 100 100 100 12/29/17 01:38 12/29/17 02:00 12/29/17 03:00 Temperature Pulse Rate 89 88 98 H Respiratory Rate 19 20 Blood Pressure 163/77 H Pulse Oximetry 100 100 100 12/29/17 03:35 12/29/17 04:00 12/29/17 04:17 Temperature 97.9 F Pulse Rate 76 86 Respiratory Rate 16 17 16 Blood Pressure 140/71 153/76 H Pulse Oximetry 100 100 100 12/29/17 05:00 12/29/17 06:00 12/29/17 07:00 Temperature Pulse Rate 72 102 H 90 Respiratory Rate 16 31 H 16 Blood Pressure 144/68 H 158/77 H 146/68 H Pulse Oximetry 100 100 100 12/29/17 08:00 12/29/17 09:00 12/29/17 10:00 Temperature Pulse Rate 76 82 92 H Respiratory Rate 16 16 17 Blood Pressure 134/65 145/74 H 144/70 H Pulse Oximetry 100 100 100 12/29/17 10:12 12/29/17 11:00 12/29/17 12:00 Temperature Pulse Rate 97 H 106 H Respiratory Rate 17 17 29 H Blood Pressure 143/74 H 151/79 H Pulse Oximetry 100 100 100 Intake & Output 12/28/17 12/29/17 12/29/17 18:59 06:59 18:59 Intake Total 2450 / 2450 640 / 640 602 / 602 Output Total 2190 / 2190 3125 / 3125 Balance 260 / 260 -2485 / -2485 602 / 602 Weight 73.3 kg Intake: IV 2150 / 2150 640 / 640 602 / 602 D5W/LR Inj 1,000 ML @ 40 mls/hr 1000 / 1000 IV.CONT .Q24H [facility] Rx#:[id number] Diprivan 1000 mg/100 ml Inj 1, 100 / 100 90 / 90 52 / 52 000 mg In 100 ml @ 5 MCG/KG/MIN 1.837 mls/hr IV.CONT TITRATE PRN Rx#:[id number] Flexbumin 25% Inj 100 ML @ 60 100 / 100 100 / 100 mls/hr IV.SIG Q12H [facility] Rx#: [id number] Cubicin Inj 400 MG In NS Inj 100 / 100 100 / 100 100 ML @ 200 mls/hr IV.SIG Q24H [facility] Rx#:[id number] Diflucan 400 mg Premix Bag 200 200 / 200 ML @ 100 mls/hr IV.SIG Q24H [facility] Rx#:[id number] Zosyn 4.5 GM Premix 4.5 gm In 200 / 200 200 / 200 100 / 100 100 ml @ 200 mls/hr IV.SIG Q6H [facility] Rx#:[id number] KCl 40 mEq Premix Inj 40 meq In 200 / 200 100 / 100 100 ml @ 25 mls/hr IV.SIG UNSCH PRN Rx#:[id number] fentaNYL 10 mcg/mL Premix Drip 250 / 250 250 / 250 250 / 250 2,500 mcg In 250 ml @ 50 MCG/HR 5 mls/hr IV.SIG TITRATE PRN Rx #:[id number] Oral 0 / 0 Tube Feeding 0 / 0 Water Bolus Amount 0 / 0 Anesthesia Amount 300 / 300 Output: Stool 400 / 400 50 / 50 Estimated Blood Loss 40 / 40 Urine Amount (Catheter) 1500 / 1500 2750 / 2750 1 1500 / 1500 2750 / 2750 Gastric Drainage 0 / 0 Nasogastric Tube 0 / 0 Wound Drainage 250 / 250 Sacrum 250 / 250 Wound Vac Amount 325 / 325 Posterior Sacrum 325 / 325 Other: Mode Setting Posterior Sacrum Continuous Continuous Continuous Date of Last Bowel Movement 12/28/17 12/29/17 12/29/17 Medications and Allergies Active Medications: Active Medications Acetaminophen (Tylenol) 650 mg NG/OG ONCE R[facility]ARDO Al Hydroxide/Mg Hydroxide (Milk Of Magnesia Liq) 30 ml PO Q12H PRN PRN Reason: Mild Constipation Albuterol (Duoneb Neb (Prn)) 1 ampul NEB Q2HR NEB PRN PRN Reason: WHEEZING Last Admin: 12/21/17 15:25 Dose: 1 ampul Bisacodyl (Dulcolax Supp) 10 mg RECTAL DAILY PRN PRN Reason: SEVERE CONSITIPATION Chlorhexidine Gluconate (Peridex 0.12% Oral Kit) 15 ml OROPHARYNG BID@0800, 2000 [facility] Last Admin: 12/29/17 08:45 Dose: 15 ml Dextrose (D50w Vial) 50 ml IV.PUSH UNSCH PRN PRN Reason: PER HYPOGLYCEMIA PROTOCOL Last Admin: 12/29/17 04:45 Dose: 50 ml Enoxaparin Sodium (Lovenox Inj) 30 mg SQ DAILY [facility] Last Admin: 12/29/17 08:45 Dose: 30 mg Famotidine (Pepcid Pf Inj) 20 mg IV.PUSH Q12HR [facility] Last Admin: 12/29/17 08:43 Dose: 20 mg Furosemide (Lasix Inj) 20 mg IV.PUSH BID@0900,1800 [facility] Last Admin: 12/29/17 09:18 Dose: 20 mg Glucagon (Glucagon Inj) 1 mg OTHER PRN PRN PRN Reason: for Hypoglycemia Protocol Norepinephrine Bitartrate 4 mg (/ Sodium Chloride) 250 mls @ 7.5 mls/hr IV.SIG TITRATE PRN; Protocol PRN Reason: Per Protocol Last Titration: 12/27/17 07:00 Dose: 0 mcg/min, 0 mls/hr Fentanyl (Fentanyl 10 Mcg/Ml Premix Drip) 2,500 mcg in 250 mls @ 5 mls/hr IV.SIG TITRATE PRN; Protocol PRN Reason: Per Protocol Last Titration: 12/29/17 11:40 Dose: 250 mcg/hr, 25 mls/hr Propofol (Diprivan 1000 Mg/100 Ml Inj) 1,000 mg in 100 mls @ 1.837 mls/hr IV.CONT TITRATE PRN; Protocol PRN Reason: Per Protocol Last Admin: 12/29/17 08:46 Dose: 15 mcg/kg/min, 5.51 mls/hr Magnesium Sulfate 4 gm/ Sodium (Chloride) 100 mls @ 50 mls/hr IV.SIG UNSCH PRN PRN Reason: For Magnesium 0.9 - 1.1 mg/dL Magnesium Sulfate 2 gm/ Sodium (Chloride) 100 mls @ 50 mls/hr IV.SIG UNSCH PRN PRN Reason: For Magnesium 1.2 - 1.6 mg/dL Potassium Chloride (Kcl 20 Meq Premix Inj) 20 meq in 100 mls @ 50 mls/hr IV.SIG Q2H PRN PRN Reason: For Potassium 3.3 - 3.5 mEq/L Potassium Chloride (Kcl 40 Meq Premix Inj) 40 meq in 100 mls @ 25 mls/hr IV.SIG UNSCH PRN PRN Reason: For Potassium 3.3 - 3.5 mEq/L Last Infusion: 12/29/17 12:44 Dose: Infused Potassium Chloride (Kcl 20 Meq Premix Inj) 20 meq in 100 mls @ 50 mls/hr IV.SIG Q2H PRN PRN Reason: For Potassium 2.8 - 3.2 mEq/L Potassium Phosphate 30 mmol/ (Sodium Chloride) 260 mls @ 42 mls/hr IV.SIG UNSCH PRN PRN Reason: SEE LABEL COMMENTS Sodium Phosphate 30 mmol/ (Sodium Chloride) 260 mls @ 42 mls/hr IV.SIG UNSCH PRN PRN Reason: For Phosphorus < 2.5 mg/dL Potassium Chloride (Kcl 40 Meq Premix Inj) 40 meq in 100 mls @ 25 mls/hr IV.SIG Q2H PRN PRN Reason: For Potassium 2.8 - 3.2 mEq/L Last Infusion: 12/28/17 13:40 Dose: Infused Vasopressin 40 unit/ Sodium (Chloride) 100 mls @ 6 mls/hr IV.CONT CONT R[facility]ARDO; Protocol Last Infusion: 12/27/17 07:00 Dose: 0 units/min, 0 mls/hr Phenylephrine HCl 40 mg/ (Dextrose) 500 mls @ 30 mls/hr IV.CONT TITRATE PRN; Protocol PRN Reason: Per Protocol Last Titration: 12/27/17 07:00 Dose: 0 mcg/min, 0 mls/hr Daptomycin 400 mg/ Sodium (Chloride) 100 mls @ 200 mls/hr IV.SIG Q24H R[facility]ARDO Last Infusion: 12/29/17 13:31 Dose: Infused Piperacillin/Tazobactam/Dextrose (Zosyn 4.5 Gm Premix) 4.5 gm in 100 mls @ 200 mls/hr IV.SIG Q6H [facility] Last Admin: 12/29/17 13:31 Dose: 200 mls/hr Fluconazole (Diflucan 400 Mg Premix Bag) 200 mls @ 100 mls/hr IV.SIG Q24H R[facility]ARDO Last Infusion: 12/28/17 18:02 Dose: Infused Albumin Human (Flexbumin 25% Inj) 100 mls @ 60 mls/hr IV.SIG Q12H [facility] Last Admin: 12/29/17 14:07 Dose: 60 mls/hr Dextrose/Lactated Ringer's (D5w/Lr Inj) 1,000 mls @ 40 mls/hr IV.CONT .Q24H [facility] Last Admin: 12/28/17 11:01 Dose: 40 mls/hr Insulin Detemir (Levemir Inj) 20 unit SQ BID [facility] Last Admin: 12/17/17 08:14 Dose: Not Given Insulin Human Regular (Novolin R Correctional Sugar Inj) 0 units SQ Q4HR RICARDO; Protocol Last Admin: 12/29/17 12:51 Dose: Not Given L-Arginine/L-Glutamine/Calcium HMB (Alek Packet) 1 packet NG/OG BID [facility] Last Admin: 12/29/17 08:45 Dose: 1 packet Lactulose (Lactulose Liq) 30 ml PO DAILY PRN PRN Reason: SEVERE CONSITIPATION Magnesium Oxide (Mag-Ox) 800 mg PO UNSCH PRN PRN Reason: For Magnesium 1.2 - 1.6 mg/dL Last Admin: 12/26/17 09:02 Dose: 800 mg Miscellaneous Medication () 1 each OROPHARYNG 0000,0400,1200,1600 [facility] Last Admin: 12/29/17 12:51 Dose: 1 each Ondansetron HCl (Zofran Inj) 4 mg IV.PUSH Q6H PRN PRN Reason: NAUSEA OR VOMITING Potassium Bicarb/Potassium Chloride (K-Lyte Cl Eff) 50 meq PO UNSCH PRN PRN Reason: For Potassium 3.3 - 3.5 mEq/L Potassium Bicarbonate (Effer-K) 25 meq NG/OG BID [facility] Last Admin: 12/29/17 08:43 Dose: 25 meq Potassium Phosphate (K-Phos Original) 2,000 mg PO Q4H PRN PRN Reason: Phosphorus Less Than 2.5 mg/dL Potassium Phosphate (K-Phos Original) 2,000 mg PO UNSCH PRN PRN Reason: SEE LABEL COMMENTS Senna/Docusate Sodium (Belinda-Colace) 1 tab PO BID [facility] Last Admin: 12/29/17 08:43 Dose: 1 tab Sennosides (Senokot) 17.2 mg PO Q12H PRN PRN Reason: Moderate Constipation Sodium Chloride (Ns Flush) 2 ml IV.FLUSH BID [facility] Last Admin: 12/29/17 08:46 Dose: 2 ml Sodium Chloride (Ns Flush) 2 ml IV.FLUSH PRN PRN PRN Reason: FLUSH AFTER USING IV ACCESS Terbutaline Sulfate (Brethine Inj) 1 mg SQ UNSCH PRN PRN Reason: For Extravasation Allergies Allergy/AdvReac Type Severity Reaction Status Date / Time No Known Allergies Allergy Verified 12/15/17 07:54 Home Medications Medication Instructions Recorded Confirmed Type insulin asp prt-insulin aspart 1 sliding scale dose SUBCUT UD 11/28/17 12/15/17 History [Novolog Mix 70-30 U-100 Insuln] insulin detemir U-100 [Levemir 15 unit SUBCUT QPM 11/28/17 12/15/17 History U-100 Insulin] Results - Labs CBC & Chem 7: 12/29/17 04:30 12/29/17 04:30 Laboratory Results - last 24 hr 12/28/17 12/28/17 12/29/17 14:00 22:12 00:44 WBC RBC Hgb Hct MCV MCH MCHC RDW Plt Count MPV Sodium Potassium 3.9 D Chloride Carbon Dioxide Anion Gap BUN Creatinine Estimated GFR POC Glucose 283 H 217 H Random Glucose Calcium Total Bilirubin AST ALT Alkaline Phosphatase Total Protein Albumin 12/29/17 12/29/17 12/29/17 04:30 04:30 04:36 WBC 8.5 RBC 2.77 L Hgb 8.6 L Hct 24.5 L MCV 88.6 MCH 31.0 MCHC 35.0 RDW 17.0 Plt Count 179 MPV 8.4 Sodium 151 H Potassium 3.1 L D Chloride 113 H Carbon Dioxide 27.9 Anion Gap 10 BUN 23 H Creatinine 0.75 Estimated GFR 81 L POC Glucose 57 L Random Glucose 44 L* Calcium 7.7 L Total Bilirubin 0.6 AST 5 L ALT 7 L Alkaline Phosphatase 155 H Total Protein 6.4 Albumin 2.6 L 12/29/17 12/29/17 12/29/17 04:38 05:17 05:33 WBC RBC Hgb Hct MCV MCH MCHC RDW Plt Count MPV Sodium Potassium Chloride Carbon Dioxide Anion Gap BUN Creatinine Estimated GFR POC Glucose 60 L 86 131 H Random Glucose Calcium Total Bilirubin AST ALT Alkaline Phosphatase Total Protein Albumin 12/29/17 12/29/17 08:16 11:56 WBC RBC Hgb Hct MCV MCH MCHC RDW Plt Count MPV Sodium Potassium Chloride Carbon Dioxide Anion Gap BUN Creatinine Estimated GFR POC Glucose 109 121 H Random Glucose Calcium Total Bilirubin AST ALT Alkaline Phosphatase Total Protein Albumin Assessment and Plan - Assessment (1) Gangrene of toe Code(s): I96 - Gangrene, not elsewhere classified Status: Acute - Plan Continue betadine wet to dry to necrotic toe as ordered. Please re-consult when patient out of ICU for further evaluation to see if amputation is needed at that time. Podiatry signing off
--- NOTE | 2017-12-29 14:43 | P.PNCC ---
Subjective Subjective Remarks/Hospital Course: This 52-year-old woman with long-standing uncontrolled diabetes mellitus and severe peripheral arterial disease related to a long-term heavy smoking history was found down at her home and initial blood glucose was 610. Her lower back and buttocks was exquisitely tender and a mid line stage IV sacral decubitus was oozing purulent material and inflamed and the surrounding soft tissue. White count was not elevated but 90% neutrophils. Temperature 97 degrees. Moderately encephalopathic though conversant. X-rays revealed no fractures in the pelvis but CAT scan demonstrated extensive subcutaneous air emanating in both directions left and right from the mid sacral region. This is clearly necrotizing fasciitis or some other gas-forming infection and the woman is critically ill. She received vancomycin, Zosyn, and clindamycin antibiotic therapy as quickly as possible and was transferred to the ICU for ongoing resuscitation. Because of worsening hemodynamic stability she required intubation and mechanical ventilation followed by central line placement on arrival to the ICU. Insulin drip infusion was started in the emergency department and glucose had declined into the low 400s. She was not in ketoacidosis but lactic acid was elevated at 3.1. General surgery and orthopedic surgery were consulted for recommendations and it was felt that this woman was too unstable to tolerate an operative procedure immediately. We continue her ongoing resuscitation and trial in the ICU at this stage. 12/16: Following aggressive resuscitation yesterday for the treatment of severe hyperglycemia, septic shock, respiratory failure, metabolic acidosis, acute kidney injury, the patient went to the operating room with an extensive wide debridement bilateral gluteal and left thigh soft tissue and muscle. Primary antibiotic coverage at this point is vancomycin, cefepime, clindamycin. The patient started to make urine late yesterday afternoon and has continued to acceptable output since. Lactic acidosis is 2.0 this morning but metabolic acidosis persists despite bicarb drip. She remains on vasopressor support and hemodynamically unstable. 12/17: s/p debridement of large nec fasc wound. remains in shock today. also very hypoglycemic requiring multiple D50 amps overnight. 12/18: back in worsening shock. vasopressor support higher. required 2L crystalloid overnight and additional 1L and 500cc albumin today. ivc completely flat on bedside echo. LVEF hyperdynamic. no pericardial effusion. spoken with gen surg. plan to go back early to eval for worsening necrosis. fio2 also up to 100% and peep 10- hypoxic, likely early ARDS. 12/19: clinically doing better. still in shock on vasopressors, but requirements are lower and lactate cleared. Cr slowly uptrending. SVV still 19% today and appears to be volume responsive. gen surgery ordered 2 units prbc for falling hgb in the setting of blood loss with surgical intervention yesterday. fio2 improving. glycemic control also improving. 12/20: Markedly impaired oxygenation persists. Still requiring elevated end expiratory pressure. Nutritional support continues but she remains catabolic. It will be difficult to keep up with her nutritional needs. 12/21: Continued severe sepsis requiring vasopressor support and mechanical ventilation. Oxygenation remains impaired and smoldering metabolic acidosis persists. Despite hemodynamic instability the patient's only hope for survival is with infection source control through further debridement. Clearly a greatly increased risk however for any procedure. 12/22: Persistent septic shock course requiring vasopressor support and regular debridement. Good antibiotic coverage but she continues to require adjustment of ventilator, hemodynamic support drugs, antibiotics, intravenous fluids. Her nutritional status was quite depleted on arrival and continues to deteriorate despite adjuvant nutrition. 12/23: Patient continues septic course. She has developed venous clot throughout her left internal jugular subclavian and axillary vein system. Not a candidate for full anticoagulation because of need for frequent surgical debridement. We will pull out the catheter today and placing In the right subclavian route. 12/24 remains critically ill and septic remains on Rj-Synephrine at 50 mcg/kg/ min. WBC count increasing 20 6K today. Antibiotics have been changed by ID. Diflucan added for Talia UTI. Plan for OR today per surgery 12/25: Went to OR yesterday, s/p Incision, drainage with excisional debridement of back, buttock, thigh, and VAC change. Main septic White count increasing 31, 000 today, remains on pressors vasopressin and Rj-Synephrine. 12/26: Remains critical remains on vasopressin to maintain blood pressure and map above 65, currently off Rj-Synephrine. Remains severely fluid overloaded approximately 20 kg up. Despite pressor use will start IV diuretics to achieve negative fluid balance 12/27: Intubated sedated but more awake follows some commands. Hemoglobin down to 6.4, 2 g dropped, receiving 2 units of PRBC. No obvious bleeding noted. Currently had been weaned off the pressors. Or planned for tomorrow again 12/28: OR today for wound VAC change and I&D, possible tracheostomy. Potassium is 2.6 getting replaced. Hemoglobin stable. Remains off pressors. Urine output almost 8 L with forced diuresis 12/29: Status post OR for wound VAC change in tracheostomy yesterday. Getting for his diuresis urine output more than 4 L in 24 hours. Remains intubated sedated intermittently follows commands. Plan for I&D wound VAC change again on Sunday Objective Vital Signs / I&O: Vital Signs 12/28/17 14:30 12/28/17 14:45 12/28/17 15:00 Temperature 97.3 F L 97.5 F L 97.3 F L Pulse Rate 81 89 Respiratory Rate Blood Pressure 152/74 H 158/75 H Pulse Oximetry 91 L 91 L 95 12/28/17 16:33 12/28/17 16:46 12/28/17 16:54 Temperature Pulse Rate 85 Respiratory Rate 16 16 Blood Pressure 120/61 129/64 Pulse Oximetry 100 100 100 12/28/17 17:00 12/28/17 18:00 12/28/17 18:50 Temperature Pulse Rate 88 92 H 73 Respiratory Rate 16 16 Blood Pressure 166/76 H Pulse Oximetry 100 100 100 12/28/17 19:00 12/28/17 20:00 12/28/17 21:00 Temperature Pulse Rate 84 82 77 Respiratory Rate 16 16 17 Blood Pressure Pulse Oximetry 100 100 100 12/28/17 21:01 12/28/17 21:24 12/28/17 22:00 Temperature Pulse Rate 76 96 H Respiratory Rate 16 16 17 Blood Pressure 144/67 H Pulse Oximetry 100 100 100 12/28/17 23:00 12/28/17 23:11 12/28/17 23:43 Temperature Pulse Rate 86 79 Respiratory Rate 16 16 17 Blood Pressure 120/73 Pulse Oximetry 100 100 100 12/29/17 00:00 12/29/17 01:00 12/29/17 01:38 Temperature 98.1 F Pulse Rate 86 66 89 Respiratory Rate 16 16 Blood Pressure 163/77 H Pulse Oximetry 100 100 100 12/29/17 02:00 12/29/17 03:00 12/29/17 03:35 Temperature Pulse Rate 88 98 H 76 Respiratory Rate 19 20 16 Blood Pressure 140/71 Pulse Oximetry 100 100 100 12/29/17 04:00 12/29/17 04:17 12/29/17 05:00 Temperature 97.9 F Pulse Rate 86 72 Respiratory Rate 17 16 16 Blood Pressure 153/76 H 144/68 H Pulse Oximetry 100 100 100 12/29/17 06:00 12/29/17 07:00 12/29/17 08:00 Temperature Pulse Rate 102 H 90 76 Respiratory Rate 31 H 16 16 Blood Pressure 158/77 H 146/68 H 134/65 Pulse Oximetry 100 100 100 12/29/17 09:00 12/29/17 10:00 12/29/17 10:12 Temperature Pulse Rate 82 92 H Respiratory Rate 16 17 17 Blood Pressure 145/74 H 144/70 H Pulse Oximetry 100 100 100 12/29/17 11:00 12/29/17 12:00 Temperature Pulse Rate 97 H 106 H Respiratory Rate 17 29 H Blood Pressure 143/74 H 151/79 H Pulse Oximetry 100 100 Intake & Output 12/28/17 12/29/17 12/29/17 18:59 06:59 18:59 Intake Total 2450 / 2450 640 / 640 602 / 602 Output Total 2190 / 2190 3125 / 3125 Balance 260 / 260 -2485 / -2485 602 / 602 Weight 73.3 kg Intake: IV 2150 / 2150 640 / 640 602 / 602 D5W/LR Inj 1,000 ML @ 40 mls/hr 1000 / 1000 IV.CONT .Q24H RICARDO Rx#:[id number] Diprivan 1000 mg/100 ml Inj 1, 100 / 100 90 / 90 52 / 52 000 mg In 100 ml @ 5 MCG/KG/MIN 1.837 mls/hr IV.CONT TITRATE PRN Rx#:[id number] Flexbumin 25% Inj 100 ML @ 60 100 / 100 100 / 100 mls/hr IV.SIG Q12H RICARDO Rx#: [id number] Cubicin Inj 400 MG In NS Inj 100 / 100 100 / 100 100 ML @ 200 mls/hr IV.SIG Q24H RICARDO Rx#:[id number] Diflucan 400 mg Premix Bag 200 200 / 200 ML @ 100 mls/hr IV.SIG Q24H RICARDO Rx#:[id number] Zosyn 4.5 GM Premix 4.5 gm In 200 / 200 200 / 200 100 / 100 100 ml @ 200 mls/hr IV.SIG Q6H RICARDO Rx#:[id number] KCl 40 mEq Premix Inj 40 meq In 200 / 200 100 / 100 100 ml @ 25 mls/hr IV.SIG UNSCH PRN Rx#:[id number] fentaNYL 10 mcg/mL Premix Drip 250 / 250 250 / 250 250 / 250 2,500 mcg In 250 ml @ 50 MCG/HR 5 mls/hr IV.SIG TITRATE PRN Rx #:[id number] Oral 0 / 0 Tube Feeding 0 / 0 Water Bolus Amount 0 / 0 Anesthesia Amount 300 / 300 Output: Stool 400 / 400 50 / 50 Estimated Blood Loss 40 / 40 Urine Amount (Catheter) 1500 / 1500 2750 / 2750 1 1500 / 1500 2750 / 2750 Gastric Drainage 0 / 0 Nasogastric Tube 0 / 0 Wound Drainage 250 / 250 Sacrum 250 / 250 Wound Vac Amount 325 / 325 Posterior Sacrum 325 / 325 Other: Mode Setting Posterior Sacrum Continuous Continuous Continuous Date of Last Bowel Movement 12/28/17 12/29/17 12/29/17 Result Diagrams: 12/29/17 04:30 12/29/17 04:30 Objective Remarks: General: Ill-appearing middle-aged woman, intubated and lightly sedated. Overall anasarca present Head: Atraumatic, edentulous Neck: Supple, new trach site without significant bleeding Lungs: equal chest rise. Scattered rhonchi but acceptable air movement. peep 8. Heart: tachycardic rate and regular rhythm. no JVD. Abdomen: Soft, no guarding, no peritoneal irritation. Back: Wound VAC in place over lower lumbar region there is a moderate erythema to the skin over the pelvis and buttocks. Extremities: Warm, adequately perfused, status post below-knee amputation right side, necrotic ulceration over several toes left foot. Generalized edema involving the left arm. Generalized anasarca Neurological: Intubated and sedated, moves 4 limbs to stimulation. Pupils responsive. Follows commands when sedation is lightened Assessment and Plan - Problem List (1) Septic shock with acute organ dysfunction due to anaerobic bacteria Code(s): A41.4 - Sepsis due to anaerobes; R65.21 - Severe sepsis with septic shock Status: Acute (2) Acute respiratory failure Code(s): J96.00 - Acute respiratory failure, unspecified whether with hypoxia or hypercapnia Status: Acute (3) Necrotizing fasciitis Code(s): M72.6 - Necrotizing fasciitis Status: Acute (4) Type 2 diabetes mellitus with hyperosmolar nonketotic hyperglycemia Code(s): E11.01 - Type 2 diabetes mellitus with hyperosmolarity with coma Status: Acute (5) MARIO (acute kidney injury) Code(s): N17.9 - Acute kidney failure, unspecified Status: Acute (6) Lactic acidosis Code(s): E87.2 - Acidosis Status: Acute - Assessment and Plan Plan: Assessment: 52yF with large necrotizing soft tissue infection of the lower back and sacrum complicated by septic shock and multiorgan dysfunction. OR today for further I&D, wound VAC change and tracheostomy Plan: Neurological Acute metabolic encephalopathy -Sedation with propofol, Analgesia with fentanyl -Encephalopathy largely due to sepsis and hyperglycemia, -RASS goal -1. Following commands today Cardiovascular Septic Shock- improving Myocardial dysfunction secondary to septic shock Fluid overload - Currently remains off all pressors - s/p 2 units of prbc for ongoing blood loss and anemia will help with intravascular volume expansion as well. - Received 2 units PRBC 12/27/2017 for hemoglobin of 6.4 - Follow acid-base balance closely - IV Lasix started yesterday due to fluid overload 20 mg every 12 with excellent response - Continue potassium replacement Respiratory Acute hypoxic and hypercarbic respiratory failure- persistent - Intubation and mechanical ventilation, Bronchodilators. s/p tracheostomy 12/28 - HOB elevated, vent bundle. wean fio2 for goal spo2 > 90% - no weaning of mechanical ventilation until shock improves - Trach in OR 12/28/17. Discussed with Dr. Bazzi Endocrinology Diabetes Severe hypoglycemia - Holding Levemir - Med scale SSI. - Follow potassium and magnesium closely Hematology/Infectious Disease Septic Shock Necrotizing soft tissue infection - Follow white count and platelet count closely. - Continue daptomycin and Zosyn. Diflucan for fungal coverage. - OR per general surgery, next planned for I&D and wound VAC change on 12/31/2017 GI Acute protein calorie malnutrition- severe - prealbumin 5 on 12/18. severely malnourished. - daily bmp, mg, phos - Tube feeds infusing Acute kidney injury - Tristan required for hourly urine output and to protect perineal region - High risk for further deterioration in renal function - IV Lasix as above HEME Left upper extremity DVT - DVT left internal jugular, subclavian, axillary and distal arm veins. - Cannot anticoagulate secondary to blood loss anemia requiring blood transfusion, frequent surgeries Prophylaxis - Pepcid for GI ulcer prophylaxis - SCDs for DVT prophylaxis - Hold chemical DVT prophylaxis until ongoing surgical decisions regarding further debridement are made Lines: Left subclavian central venous line placed 12/15, discontinued 12/23. Right subclavian central venous line placed 12/23 Overall impression: This woman is critically ill and in septic shock with necrotizing fasciitis emanating from a deep chronic sacral decubitus ulcer. She remains hemodynamically unstable and requiring vasopressor support. Peripheral perfusion and urine output is acceptable. Level 3
[2017-12-29] MEDS: Dextrose 5%/Lactated Ringer's 1,000 ML IV.CONT SCH (19:39)
[2017-12-30] MEDS: Insulin NovoLIN Regular Correctional Sugar Inj SQ SCH ×7 (00:57→23:45)
[2017-12-30] MEDS: Oral Hygiene Kit OROPHARYNG SCH ×5 (00:58→23:44)
[2017-12-30] MEDS: Piperacil/Tazo 4.5 GM Premix 4.5 GM/100 ML BAG IV.SIG SCH ×4 (00:58→18:10)
[2017-12-30] MEDS: Albumin Human 25% Inj 100 ML IV.SIG SCH ×2 (04:04→13:02)
[2017-12-30] MEDS: Propofol 1000 mg/100 ml Inj 1,000 MG/100 ML BOTTLE IV.CONT PRN ×2 (04:05→19:06)
[2017-12-30] MEDS: Famotidine PF Inj 20 MG/2 ML Vial IV.PUSH SCH ×2 (08:06→20:31)
[2017-12-30] MEDS: Enoxaparin Inj 30 MG/0.3 ML Syringe SQ SCH (08:06)
[2017-12-30] MEDS: Senna/Docusate Sodium 8.6/50 MG Tablet PO SCH ×2 (08:06→20:31)
[2017-12-30] MEDS: fentaNYL 10 mcg/mL Premix Drip 2,500 MCG/250 ML BAG IV.SIG PRN ×2 (08:07→19:06)
[2017-12-30] MEDS: Chlorhexidine 0.12% Oral Kit 15 ML UDC OROPHARYNG SCH ×2 (08:08→19:18)
[2017-12-30] MEDS: Potassium Bicarbonate 25 MEQ Effervescent Tablet NG/OG SCH ×2 (08:08→20:31)
--- NOTE | 2017-12-30 11:34 | P.PNGS ---
Subjective Patient reports: other (On the ventilator. Eyes open. Does not communicate.) Physical Exam Vital signs: Vital Signs 12/29/17 12:00 12/29/17 13:00 12/29/17 14:00 Temperature Pulse Rate 106 H 103 H 91 H Respiratory Rate 29 H 24 15 Blood Pressure 151/79 H 149/72 H 137/67 Pulse Oximetry 100 100 100 12/29/17 15:00 12/29/17 16:00 12/29/17 17:00 Temperature 98.4 F Pulse Rate 102 H 91 H 81 Respiratory Rate 17 25 H 17 Blood Pressure 129/63 142/65 H 141/73 H Pulse Oximetry 100 100 100 12/29/17 18:00 12/29/17 19:00 12/29/17 20:00 Temperature 99.1 F Pulse Rate 85 80 103 H Respiratory Rate 17 19 14 Blood Pressure 127/67 132/71 151/68 H Pulse Oximetry 100 100 100 12/29/17 21:00 12/29/17 21:50 12/29/17 22:00 Temperature Pulse Rate 94 H 90 Respiratory Rate 10 L 16 16 Blood Pressure 150/67 H 101/55 L Pulse Oximetry 100 100 100 12/29/17 23:00 12/30/17 00:00 12/30/17 01:00 Temperature 98.8 F Pulse Rate 88 83 98 H Respiratory Rate 11 L 16 3 L Blood Pressure 118/62 130/64 152/79 H Pulse Oximetry 100 100 100 12/30/17 02:00 12/30/17 03:00 12/30/17 04:00 Temperature 98.9 F Pulse Rate 83 81 101 H Respiratory Rate 9 L 5 L 20 Blood Pressure 144/71 H 143/72 H 155/79 H Pulse Oximetry 100 100 100 12/30/17 04:07 12/30/17 05:00 12/30/17 06:00 Temperature Pulse Rate 86 107 H Respiratory Rate 16 8 L 19 Blood Pressure 140/73 152/71 H Pulse Oximetry 100 100 100 12/30/17 07:00 12/30/17 08:00 Temperature Pulse Rate 85 91 H Respiratory Rate 16 16 Blood Pressure 148/74 H 146/68 H Pulse Oximetry 100 100 Intake & Output 12/29/17 12/30/17 12/30/17 18:59 06:59 18:59 Intake Total 1679 / 1679 1568 / 1568 250 / 250 Output Total 2074 1950 / 1950 Balance -396 / -396 -382 / -382 250 / 250 Weight 72.6 kg Intake: IV 1602 / 1602 1250 / 1250 250 / 250 D5W/LR Inj 1,000 ML @ 40 mls/hr 500 / 500 500 / 500 IV.CONT .Q24H RICARDO Rx#:[id number] Diprivan 1000 mg/100 ml Inj 1, 52 / 52 200 / 200 000 mg In 100 ml @ 5 MCG/KG/MIN 1.837 mls/hr IV.CONT TITRATE PRN Rx#:[id number] Flexbumin 25% Inj 100 ML @ 60 100 / 100 100 / 100 mls/hr IV.SIG Q12H RICARDO Rx#: [id number] Cubicin Inj 400 MG In NS Inj 100 / 100 100 ML @ 200 mls/hr IV.SIG Q24H RICARDO Rx#:[id number] Diflucan 400 mg Premix Bag 200 200 / 200 ML @ 100 mls/hr IV.SIG Q24H RICARDO Rx#:[id number] Zosyn 4.5 GM Premix 4.5 gm In 300 / 300 200 / 200 100 ml @ 200 mls/hr IV.SIG Q6H RICARDO Rx#:[id number] KCl 40 mEq Premix Inj 40 meq In 100 / 100 100 ml @ 25 mls/hr IV.SIG UNSCH PRN Rx#:[id number] fentaNYL 10 mcg/mL Premix Drip 250 / 250 250 / 250 250 / 250 2,500 mcg In 250 ml @ 50 MCG/HR 5 mls/hr IV.SIG TITRATE PRN Rx #:[id number] Tube Feeding 77 / 77 198 / 198 Tube Irrigant 120 / 120 Output: Stool 50 / 50 Urine Amount (Catheter) 1850 / 1850 1750 / 1750 1 1850 / 1850 1750 / 1750 Wound Drainage 225 / 225 Sacrum 225 / 225 Wound Vac Amount 150 / 150 Posterior Sacrum 150 / 150 Other: Mode Setting Posterior Sacrum Continuous Continuous Continuous Date of Last Bowel Movement 12/29/17 12/30/17 12/29/17 Narrative: VAC dressing intact without signs of leak. Incision along lateral right thigh closed with sutures without erythema or significant drainage. - Urinary Catheter Management 1 Cath placed during this visit: yes Reason for continuing: Severe pressure ulcer/wound Insertion date: 12/15/17 Results - Labs 12/29/17 04:30 12/29/17 04:30 Laboratory Results - last 24 hr 12/29/17 12/29/17 12/29/17 11:56 16:17 19:48 POC Glucose 121 H 141 H 169 H 12/29/17 12/30/17 12/30/17 22:53 03:56 07:30 POC Glucose 147 H 220 H 155 H 12/30/17 11:10 POC Glucose 146 H - Imaging Imaging: ITS Impressions Femur X-Ray 12/15/17 07:05 CONCLUSION: No fracture is identified. There is extensive soft tissue air in the right gluteal region and extending into the proximal and mid posterior thigh. The soft tissue air suggests an open wound. Pelvis X-Ray 12/15/17 07:05 CONCLUSION: No fracture is identified. However, there is extensive soft tissue air in the left gluteal region and left proximal thigh. Pelvis CT 12/15/17 07:52 CONCLUSION: 1. No fracture is identified. 2. Extensive subcutaneous and soft tissue gas bilaterally, left greater than right. It is most severe in the left gluteal region and extends into the proximal posterior thigh. The soft tissue air dissects through the gluteal musculature. There is adjacent subcutaneous edema. Foot X-Ray 12/18/17 00:00 CONCLUSION: Remote small avulsion fracture at the fifth toe. No acute bony abnormality. Venous Doppler Study 12/22/17 00:00 CONCLUSION: Extensive deep vein thrombosis of the left upper extremity. Chest X-Ray 12/28/17 06:00 CONCLUSION: Unchanged exam. Assessment and Plan - Assessment (1) Necrotizing fasciitis of pelvic region and thigh Code(s): M72.6 - Necrotizing fasciitis Status: Acute Plan: 52yo female with multiple medical comorbidities, s/p debridement of nec fasc -Remains critically ill -Continues to require pressor support -VAC change planned for tomorrow late afternoon/early evening.Continue current support. - Plan Discussed Condition With: Nancy, bedside RN and patient's by telephone.
[2017-12-30] MEDS: DAPTOmycin Inj 400 MG in Sodium Chlor 0.9% Inj 100 ML IV.SIG SCH (13:01)
--- NOTE | 2017-12-30 14:54 | P.PNCC ---
Subjective Subjective Remarks/Hospital Course: This 52-year-old woman with long-standing uncontrolled diabetes mellitus and severe peripheral arterial disease related to a long-term heavy smoking history was found down at her home and initial blood glucose was 610. Her lower back and buttocks was exquisitely tender and a mid line stage IV sacral decubitus was oozing purulent material and inflamed and the surrounding soft tissue. White count was not elevated but 90% neutrophils. Temperature 97 degrees. Moderately encephalopathic though conversant. X-rays revealed no fractures in the pelvis but CAT scan demonstrated extensive subcutaneous air emanating in both directions left and right from the mid sacral region. This is clearly necrotizing fasciitis or some other gas-forming infection and the woman is critically ill. She received vancomycin, Zosyn, and clindamycin antibiotic therapy as quickly as possible and was transferred to the ICU for ongoing resuscitation. Because of worsening hemodynamic stability she required intubation and mechanical ventilation followed by central line placement on arrival to the ICU. Insulin drip infusion was started in the emergency department and glucose had declined into the low 400s. She was not in ketoacidosis but lactic acid was elevated at 3.1. General surgery and orthopedic surgery were consulted for recommendations and it was felt that this woman was too unstable to tolerate an operative procedure immediately. We continue her ongoing resuscitation and trial in the ICU at this stage. 12/16: Following aggressive resuscitation yesterday for the treatment of severe hyperglycemia, septic shock, respiratory failure, metabolic acidosis, acute kidney injury, the patient went to the operating room with an extensive wide debridement bilateral gluteal and left thigh soft tissue and muscle. Primary antibiotic coverage at this point is vancomycin, cefepime, clindamycin. The patient started to make urine late yesterday afternoon and has continued to acceptable output since. Lactic acidosis is 2.0 this morning but metabolic acidosis persists despite bicarb drip. She remains on vasopressor support and hemodynamically unstable. 12/17: s/p debridement of large nec fasc wound. remains in shock today. also very hypoglycemic requiring multiple D50 amps overnight. 12/18: back in worsening shock. vasopressor support higher. required 2L crystalloid overnight and additional 1L and 500cc albumin today. ivc completely flat on bedside echo. LVEF hyperdynamic. no pericardial effusion. spoken with gen surg. plan to go back early to eval for worsening necrosis. fio2 also up to 100% and peep 10- hypoxic, likely early ARDS. 12/19: clinically doing better. still in shock on vasopressors, but requirements are lower and lactate cleared. Cr slowly uptrending. SVV still 19% today and appears to be volume responsive. gen surgery ordered 2 units prbc for falling hgb in the setting of blood loss with surgical intervention yesterday. fio2 improving. glycemic control also improving. 12/20: Markedly impaired oxygenation persists. Still requiring elevated end expiratory pressure. Nutritional support continues but she remains catabolic. It will be difficult to keep up with her nutritional needs. 12/21: Continued severe sepsis requiring vasopressor support and mechanical ventilation. Oxygenation remains impaired and smoldering metabolic acidosis persists. Despite hemodynamic instability the patient's only hope for survival is with infection source control through further debridement. Clearly a greatly increased risk however for any procedure. 12/22: Persistent septic shock course requiring vasopressor support and regular debridement. Good antibiotic coverage but she continues to require adjustment of ventilator, hemodynamic support drugs, antibiotics, intravenous fluids. Her nutritional status was quite depleted on arrival and continues to deteriorate despite adjuvant nutrition. 12/23: Patient continues septic course. She has developed venous clot throughout her left internal jugular subclavian and axillary vein system. Not a candidate for full anticoagulation because of need for frequent surgical debridement. We will pull out the catheter today and placing In the right subclavian route. 12/24 remains critically ill and septic remains on Rj-Synephrine at 50 mcg/kg/ min. WBC count increasing 20 6K today. Antibiotics have been changed by ID. Diflucan added for Talia UTI. Plan for OR today per surgery 12/25: Went to OR yesterday, s/p Incision, drainage with excisional debridement of back, buttock, thigh, and VAC change. Main septic White count increasing 31, 000 today, remains on pressors vasopressin and Rj-Synephrine. 12/26: Remains critical remains on vasopressin to maintain blood pressure and map above 65, currently off Rj-Synephrine. Remains severely fluid overloaded approximately 20 kg up. Despite pressor use will start IV diuretics to achieve negative fluid balance 12/27: Intubated sedated but more awake follows some commands. Hemoglobin down to 6.4, 2 g dropped, receiving 2 units of PRBC. No obvious bleeding noted. Currently had been weaned off the pressors. Or planned for tomorrow again 12/28: OR today for wound VAC change and I&D, possible tracheostomy. Potassium is 2.6 getting replaced. Hemoglobin stable. Remains off pressors. Urine output almost 8 L with forced diuresis 12/29: Status post OR for wound VAC change in tracheostomy yesterday. Getting for his diuresis urine output more than 4 L in 24 hours. Remains intubated sedated intermittently follows commands. Plan for I&D wound VAC change again on Saturday 12/30: Remains intubated sedated more stable. Urine output remains excellent with diuresis. Plan for OR in a.m. for further I&D and VAC change Objective Vital Signs / I&O: Vital Signs 12/29/17 15:00 12/29/17 16:00 12/29/17 17:00 Temperature 98.4 F Pulse Rate 102 H 91 H 81 Respiratory Rate 17 25 H 17 Blood Pressure 129/63 142/65 H 141/73 H Pulse Oximetry 100 100 100 12/29/17 18:00 12/29/17 19:00 12/29/17 20:00 Temperature 99.1 F Pulse Rate 85 80 103 H Respiratory Rate 17 19 14 Blood Pressure 127/67 132/71 151/68 H Pulse Oximetry 100 100 100 12/29/17 21:00 12/29/17 21:50 12/29/17 22:00 Temperature Pulse Rate 94 H 90 Respiratory Rate 10 L 16 16 Blood Pressure 150/67 H 101/55 L Pulse Oximetry 100 100 100 12/29/17 23:00 12/30/17 00:00 12/30/17 01:00 Temperature 98.8 F Pulse Rate 88 83 98 H Respiratory Rate 11 L 16 3 L Blood Pressure 118/62 130/64 152/79 H Pulse Oximetry 100 100 100 12/30/17 02:00 12/30/17 03:00 12/30/17 04:00 Temperature 98.9 F Pulse Rate 83 81 101 H Respiratory Rate 9 L 5 L 20 Blood Pressure 144/71 H 143/72 H 155/79 H Pulse Oximetry 100 100 100 12/30/17 04:07 12/30/17 05:00 12/30/17 06:00 Temperature Pulse Rate 86 107 H Respiratory Rate 16 8 L 19 Blood Pressure 140/73 152/71 H Pulse Oximetry 100 100 100 12/30/17 07:00 12/30/17 08:00 12/30/17 09:00 Temperature Pulse Rate 85 91 H 85 Respiratory Rate 16 16 17 Blood Pressure 148/74 H 146/68 H 153/71 H Pulse Oximetry 100 100 100 12/30/17 10:00 12/30/17 11:00 12/30/17 12:00 Temperature Pulse Rate 100 H 99 H 105 H Respiratory Rate 8 L 12 28 H Blood Pressure 168/70 H 158/70 H 165/87 H Pulse Oximetry 100 100 98 Intake & Output 12/29/17 12/30/17 12/30/17 18:59 06:59 18:59 Intake Total 1679 / 1679 1568 / 1568 1050 / 1050 Output Total 2074 / 5 1950 / 1950 Balance -396 / -396 -382 / -382 1050 / 1050 Weight 72.6 kg Intake: IV 1602 / 1602 1250 / 1250 1050 / 1050 D5W/LR Inj 1,000 ML @ 40 mls/hr 500 / 500 500 / 500 500 / 500 IV.CONT .Q24H RICARDO Rx#:[id number] Diprivan 1000 mg/100 ml Inj 1, 52 / 52 200 / 200 000 mg In 100 ml @ 5 MCG/KG/MIN 1.837 mls/hr IV.CONT TITRATE PRN Rx#:[id number] Flexbumin 25% Inj 100 ML @ 60 100 / 100 100 / 100 100 / 100 mls/hr IV.SIG Q12H RICARDO Rx#: [id number] Cubicin Inj 400 MG In NS Inj 100 / 100 100 / 100 100 ML @ 200 mls/hr IV.SIG Q24H RICARDO Rx#:[id number] Diflucan 400 mg Premix Bag 200 200 / 200 ML @ 100 mls/hr IV.SIG Q24H RICARDO Rx#:[id number] Zosyn 4.5 GM Premix 4.5 gm In 300 / 300 200 / 200 100 / 100 100 ml @ 200 mls/hr IV.SIG Q6H RICARDO Rx#:[id number] KCl 40 mEq Premix Inj 40 meq In 100 / 100 100 ml @ 25 mls/hr IV.SIG UNSCH PRN Rx#:[id number] fentaNYL 10 mcg/mL Premix Drip 250 / 250 250 / 250 250 / 250 2,500 mcg In 250 ml @ 50 MCG/HR 5 mls/hr IV.SIG TITRATE PRN Rx #:[id number] Tube Feeding 77 / 77 198 / 198 Tube Irrigant 120 / 120 Output: Stool 50 / 50 Urine Amount (Catheter) 1849 / 1850 1750 / 1750 1 1849 / 1850 1750 / 1750 Wound Drainage 225 / 225 Sacrum 225 / 225 Wound Vac Amount 150 / 150 Posterior Sacrum 150 / 150 Other: Mode Setting Posterior Sacrum Continuous Continuous Continuous Date of Last Bowel Movement 12/29/17 12/30/17 12/29/17 Result Diagrams: 12/29/17 04:30 12/29/17 04:30 Objective Remarks: General: Ill-appearing middle-aged woman, intubated and lightly sedated. Overall anasarca present Head: Atraumatic, edentulous Neck: Supple, new trach site without significant bleeding Lungs: equal chest rise. Scattered rhonchi but acceptable air movement. peep 8. Heart: Regular rate rate and regular rhythm. no JVD. Abdomen: Soft, no guarding, no peritoneal irritation. Back: Wound VAC in place over lower lumbar region there is a moderate erythema to the skin over the pelvis and buttocks. Extremities: Warm, adequately perfused, status post below-knee amputation right side, necrotic ulceration over several toes left foot. Generalized edema involving the left arm. Generalized anasarca Neurological: Intubated and sedated, moves 4 limbs to stimulation. Pupils responsive. Follows commands when sedation is lightened Assessment and Plan - Problem List (1) Septic shock with acute organ dysfunction due to anaerobic bacteria Code(s): A41.4 - Sepsis due to anaerobes; R65.21 - Severe sepsis with septic shock Status: Acute (2) Acute respiratory failure Code(s): J96.00 - Acute respiratory failure, unspecified whether with hypoxia or hypercapnia Status: Acute (3) Necrotizing fasciitis Code(s): M72.6 - Necrotizing fasciitis Status: Acute (4) Type 2 diabetes mellitus with hyperosmolar nonketotic hyperglycemia Code(s): E11.01 - Type 2 diabetes mellitus with hyperosmolarity with coma Status: Acute (5) MARIO (acute kidney injury) Code(s): N17.9 - Acute kidney failure, unspecified Status: Acute (6) Lactic acidosis Code(s): E87.2 - Acidosis Status: Acute - Assessment and Plan Plan: Assessment: 52yF with large necrotizing soft tissue infection of the lower back and sacrum complicated by septic shock and multiorgan dysfunction. OR today for further I&D, wound VAC change and tracheostomy Plan: Neurological Acute metabolic encephalopathy -Sedation with propofol, Analgesia with fentanyl -Encephalopathy largely due to sepsis and hyperglycemia, improving -RASS goal -1. Following commands today Cardiovascular Septic Shock- improving Myocardial dysfunction secondary to septic shock Fluid overload - Currently remains off all pressors - Received 2 units PRBC 12/27/2017 for hemoglobin of 6.4. Currently hemoglobin remained stable - Follow acid-base balance closely - IV Lasix due to fluid overload 20 mg every 12 with excellent response - Continue potassium replacement Respiratory Acute hypoxic and hypercarbic respiratory failure- persistent - Intubation and mechanical ventilation, Bronchodilators. s/p tracheostomy 12/28 - HOB elevated, vent bundle. wean fio2 for goal spo2 > 90% - CPAP trial attempt T-piece 1-2 hours - Trach in OR 12/28/17. Discussed with Dr. Bazzi Endocrinology Diabetes Severe hypoglycemia - Holding Levemir - Med scale SSI. - Follow potassium and magnesium closely Hematology/Infectious Disease Septic Shock Necrotizing soft tissue infection - Follow white count and platelet count closely. - Continue daptomycin and Zosyn. Diflucan for fungal coverage. - OR per general surgery, next planned for I&D and wound VAC change on 12/31/2017 GI Acute protein calorie malnutrition- severe - prealbumin 5 on 12/18. severely malnourished. - daily bmp, mg, phos - Tube feeds infusing Acute kidney injury - Tristan required for hourly urine output and to protect perineal region - High risk for further deterioration in renal function - IV Lasix as above HEME Left upper extremity DVT - DVT left internal jugular, subclavian, axillary and distal arm veins. - Cannot anticoagulate secondary to blood loss anemia requiring blood transfusion, frequent surgeries Prophylaxis - Pepcid for GI ulcer prophylaxis - SCDs for DVT prophylaxis - Hold chemical DVT prophylaxis until ongoing surgical decisions regarding further debridement are made Lines: Left subclavian central venous line placed 12/15, discontinued 12/23. Right subclavian central venous line placed 12/23 Overall impression: This woman is critically ill and in septic shock with necrotizing fasciitis emanating from a deep chronic sacral decubitus ulcer. She remains hemodynamically unstable and requiring vasopressor support. Peripheral perfusion and urine output is acceptable. Level 3
[2017-12-30] MEDS: Potassium Chlor 40 mEq Premix 40 MEQ/100 ML PIGGYBACK IV.SIG PRN ×2 (17:50→19:08)
[2017-12-30] MEDS: Dextrose 5%/Lactated Ringer's 1,000 ML IV.CONT SCH ×2 (19:18→20:14)
[2017-12-31] MEDS: Piperacil/Tazo 4.5 GM Premix 4.5 GM/100 ML BAG IV.SIG SCH ×4 (00:42→20:14)
[2017-12-31] MEDS: Albumin Human 25% Inj 100 ML IV.SIG SCH ×2 (02:10→13:36)
[2017-12-31] MEDS: Propofol 1000 mg/100 ml Inj 1,000 MG/100 ML BOTTLE IV.CONT PRN ×3 (02:10→19:41)
--- NOTE | 2017-12-31 04:17 | XR ---
EXAM DATE: 12/31/2017 4:01 AM EST AGE/SEX: 52 years / Female INDICATIONS: Respiratory distress. CLINICAL DATA: This is the patient's subsequent encounter. Patient reports that signs and symptoms h ave been present for 2 weeks and indicates a pain score of Nonresponsive. MEDICAL/SURGICAL HISTORY: Hypertension. Diabetes mellitus type II. Hepatitis C. GERD. Sepsis . section. COMPARISON: C, CHEST 1V SINGLE AP, 12/28/2017. . FINDINGS: Tracheostomy tube is now in place. Nasogastric tube and right subclavian central venous catheter veronica in in place. Bilateral lower lung zone opacity increased at the right lung base. No change of the lef t. No evidence of pleural effusion or pneumothorax. Cardiomediastinal silhouette unchanged. CONCLUSION: 1. Tracheostomy tube is now seen. Endotracheal tube is no longer seen. 2. Bilateral pulmonary opacity is again seen with interval increase in the right lower lung zone op[place]. No change in the left. Electronically signed by: Luther Cronin MD 12/31/2017 4:15 AM EST
[2017-12-31] MEDS: fentaNYL 10 mcg/mL Premix Drip 2,500 MCG/250 ML BAG IV.SIG PRN ×3 (04:36→19:41)
[2017-12-31] MEDS: Oral Hygiene Kit OROPHARYNG SCH ×4 (05:08→23:25)
[2017-12-31] MEDS: Insulin NovoLIN Regular Correctional Sugar Inj SQ SCH ×6 (05:08→23:24)
[2017-12-31 06:02] LABS: Hematocrit 24.4 % (35.0-46.0); Hemoglobin 8.3 gm/dL (11.6-15.3); Mean Corpuscular HGB Conc 34.1 % (32.0-36.0); Mean Corpuscular Hemoglobin 30.9 pg (27.0-34.0); Mean Corpuscular Volume 90.7 fL (80.0-100.0); Mean Platelet Volume 8.8 fL (7.0-11.0); Platelet Count 181 th/mm3 (150-450); Red Blood Count 2.68 mil/mm3 (4.00-5.30); Red Cell Distribution Width 17.3 % (11.6-17.2); White Blood Count 7.9 th/mm3 (4.0-11.0)
[2017-12-31 06:28] LABS: Calcium 7.4 mg/dL (8.5-10.1); Carbon Dioxide 32.5 meq/L (21.0-32.0); Potassium 3.3 meq/L (3.5-5.1); Total Protein 6.7 g/dL (6.4-8.2)
[2017-12-31] MEDS: Chlorhexidine 0.12% Oral Kit 15 ML UDC OROPHARYNG SCH ×2 (08:05→20:15)
[2017-12-31] MEDS: Famotidine PF Inj 20 MG/2 ML Vial IV.PUSH SCH ×2 (11:00→20:15)
[2017-12-31] MEDS: Dextrose 5%/Lactated Ringer's 1,000 ML IV.CONT SCH ×2 (12:06→22:58)
--- NOTE | 2017-12-31 12:30 | P.PNID ---
Subjective Remarks: Patient just had another wound VAC changed this morning. Sedated. On the ventilator. Opens eyes to voice. Afebrile WBC down to normal. Post debridement 01/18/2018. This is a 52-year-old white female who was brought to the emergency department after she fell at home. The patient was noted to have profound weakness. She was evaluated in the emergency department and at that time had normal temperature and white blood cell count was also normal. She underwent CT scan of the abdomen and pelvis that showed extensive subcutaneous and soft tissue gas bilaterally with the left greater than right, most severe in the left gluteal region and extending into the proximal posterior thigh soft tissue and air-fluid dissecting through the gluteal musculature. The patient has a history of diabetes mellitus. Allergies/Adverse Reactions: Allergies No Known Allergies Allergy (Verified 12/15/17 07:54) Objective Vital Signs 12/30/17 13:00 12/30/17 14:00 12/30/17 15:00 Temperature Pulse Rate 90 88 80 Respiratory Rate 13 17 18 Blood Pressure 150/70 H 145/70 H 154/74 H Pulse Oximetry 100 100 100 12/30/17 16:00 12/30/17 17:00 12/30/17 17:51 Temperature Pulse Rate 92 H 104 H Respiratory Rate 14 8 L 16 Blood Pressure 169/81 H 153/68 H Pulse Oximetry 100 100 100 12/30/17 18:00 12/30/17 19:00 12/30/17 20:00 Temperature 99.1 F Pulse Rate 123 H 117 H 91 H Respiratory Rate 55 H 16 17 Blood Pressure 174/75 H 149/69 H 165/74 H Pulse Oximetry 100 100 100 12/30/17 21:00 12/30/17 21:39 12/30/17 21:42 Temperature Pulse Rate 79 89 Respiratory Rate 16 16 16 Blood Pressure 152/69 H Pulse Oximetry 100 100 100 12/30/17 22:00 12/30/17 22:01 12/30/17 23:00 Temperature Pulse Rate 86 86 112 H Respiratory Rate 16 16 18 Blood Pressure 169/76 H Pulse Oximetry 100 100 100 12/30/17 23:09 12/30/17 23:19 12/31/17 00:00 Temperature 99.8 F H Pulse Rate 87 99 H 80 Respiratory Rate 16 19 16 Blood Pressure 164/72 H 175/74 H 128/72 Pulse Oximetry 100 100 100 12/31/17 01:00 12/31/17 02:00 12/31/17 03:00 Temperature Pulse Rate 71 79 79 Respiratory Rate 16 17 16 Blood Pressure 132/63 133/66 151/67 H Pulse Oximetry 100 100 100 12/31/17 04:00 12/31/17 04:22 12/31/17 05:08 Temperature 99.6 F Pulse Rate 92 H Respiratory Rate 17 18 18 Blood Pressure 161/70 H Pulse Oximetry 100 100 12/31/17 08:41 12/31/17 09:46 12/31/17 12:19 Temperature Pulse Rate Respiratory Rate 16 16 Blood Pressure Pulse Oximetry 100 100 100 Intake & Output 12/30/17 12/31/17 12/31/17 18:59 06:59 18:59 Intake Total 1670 / 1670 1897 / 1897 350 / 350 Output Total 2775 / 2775 2455 / 2455 10 Balance -1105 / -1105 -558 / -558 340 / 340 Weight 68.6 kg Intake: IV 1350 / 1350 1600 / 1600 100 / 100 D5W/LR Inj 1,000 ML @ 40 mls/hr 500 / 500 500 / 500 IV.CONT .Q24H RICARDO Rx#:[id number] Diprivan 1000 mg/100 ml Inj 1, 200 / 200 000 mg In 100 ml @ 5 MCG/KG/MIN 1.837 mls/hr IV.CONT TITRATE PRN Rx#:[id number] Flexbumin 25% Inj 100 ML @ 60 100 / 100 100 / 100 mls/hr IV.SIG Q12H RICARDO Rx#: [id number] Cubicin Inj 400 MG In NS Inj 100 / 100 100 ML @ 200 mls/hr IV.SIG Q24H RICARDO Rx#:[id number] Diflucan 400 mg Premix Bag 200 200 / 200 ML @ 100 mls/hr IV.SIG Q24H RICARDO Rx#:[id number] Zosyn 4.5 GM Premix 4.5 gm In 200 / 200 100 / 100 100 / 100 100 ml @ 200 mls/hr IV.SIG Q6H RICARDO Rx#:[id number] KCl 40 mEq Premix Inj 40 meq In 200 / 200 100 ml @ 25 mls/hr IV.SIG UNSCH PRN Rx#:[id number] fentaNYL 10 mcg/mL Premix Drip 250 / 250 500 / 500 2,500 mcg In 250 ml @ 50 MCG/HR 5 mls/hr IV.SIG TITRATE PRN Rx #:[id number] Tube Feeding 220 / 220 177 / 177 Tube Irrigant 100 / 100 120 / 120 Anesthesia Amount 250 / 250 Output: Stool 550 / 550 100 / 100 Estimated Blood Loss 30 / 30 10 / 10 Urine Amount (Catheter) 1825 / 1825 2200 / 2200 1 1825 / 1825 2200 / 2200 Wound Drainage 250 / 250 Sacrum 250 / 250 Wound Vac Amount 150 / 150 125 / 125 Posterior Sacrum 150 / 150 125 / 125 Other: Mode Setting Posterior Sacrum Continuous Continuous Date of Last Bowel Movement 12/30/17 12/31/17 Lab - Hematology Results 12/31/17 05:45 WBC 7.9 RBC 2.68 L Hgb 8.3 L Hct 24.4 L MCV 90.7 MCH 30.9 MCHC 34.1 RDW 17.3 H Plt Count 181 MPV 8.8 Lab - Chemistry Results 12/29/17 12/29/17 12/29/17 16:17 19:48 22:53 Sodium Potassium Chloride Carbon Dioxide Anion Gap BUN Creatinine Estimated GFR POC Glucose 141 H 169 H 147 H Random Glucose Calcium Prot Corrected Calcium Total Bilirubin AST ALT Alkaline Phosphatase Total Protein Albumin 12/30/17 12/30/17 12/30/17 03:56 07:30 11:10 Sodium Potassium Chloride Carbon Dioxide Anion Gap BUN Creatinine Estimated GFR POC Glucose 220 H 155 H 146 H Random Glucose Calcium Prot Corrected Calcium Total Bilirubin AST ALT Alkaline Phosphatase Total Protein Albumin 12/30/17 12/30/17 12/30/17 15:55 16:00 19:21 Sodium Potassium 3.0 L Chloride Carbon Dioxide Anion Gap BUN Creatinine Estimated GFR POC Glucose 178 H 164 H Random Glucose Calcium Prot Corrected Calcium Total Bilirubin AST ALT Alkaline Phosphatase Total Protein Albumin 12/30/17 12/31/17 12/31/17 23:22 04:06 05:45 Sodium 147 H Potassium 3.3 L Chloride 105 Carbon Dioxide 32.5 H Anion Gap 10 BUN 11 Creatinine 0.76 Estimated GFR 80 L POC Glucose 110 148 H Random Glucose 130 H Calcium 7.4 L* Prot Corrected Calcium 7.6 L Total Bilirubin 0.8 AST 6 L ALT 6 L Alkaline Phosphatase 114 Total Protein 6.7 Albumin 3.0 L 12/31/17 07:47 Sodium Potassium Chloride Carbon Dioxide Anion Gap BUN Creatinine Estimated GFR POC Glucose 145 H Random Glucose Calcium Prot Corrected Calcium Total Bilirubin AST ALT Alkaline Phosphatase Total Protein Albumin Imaging: ITS Impressions Femur X-Ray 12/15/17 07:05 CONCLUSION: No fracture is identified. There is extensive soft tissue air in the right gluteal region and extending into the proximal and mid posterior thigh. The soft tissue air suggests an open wound. Pelvis X-Ray 12/15/17 07:05 CONCLUSION: No fracture is identified. However, there is extensive soft tissue air in the left gluteal region and left proximal thigh. Pelvis CT 12/15/17 07:52 CONCLUSION: 1. No fracture is identified. 2. Extensive subcutaneous and soft tissue gas bilaterally, left greater than right. It is most severe in the left gluteal region and extends into the proximal posterior thigh. The soft tissue air dissects through the gluteal musculature. There is adjacent subcutaneous edema. Foot X-Ray 12/18/17 00:00 CONCLUSION: Remote small avulsion fracture at the fifth toe. No acute bony abnormality. Venous Doppler Study 12/22/17 00:00 CONCLUSION: Extensive deep vein thrombosis of the left upper extremity. Chest X-Ray 12/31/17 06:00 CONCLUSION: 1. Tracheostomy tube is now seen. Endotracheal tube is no longer seen. 2. Bilateral pulmonary opacity is again seen with interval increase in the right lower lung zone opacity. No change in the left. Physical Exam: PHYSICAL EXAMINATION: GENERAL: Sedated. HEENT: Unable to assess fully. Pale sclera. Oropharynx intubated. NECK: Supple. No adenopathy or swelling. LUNGS: Bibasilar rhonchi. HEART: irregular S1 and S2. 1-2/6 systolic murmur at the left sternal border. ABDOMEN: Bowel sounds present, soft. BACK: Surgical wound post debridement across the lower back, buttock and thigh. Vac in place. EXTREMITIES: No clubbing, no cyanosis or edema. abrasion with dry necrotic changes at left dorsal toes 2-4. SKIN: No diffuse rash. Scattered ecchymotic lesions. NEUROLOGIC: Unable to assess. PSYCHIATRIC: Unable to assess. Assessment and Plan - Plan IMPRESSION: 1. Necrotizing fasciitis of the back, buttock and thigh. 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 2. Septic shock. Responded to broad-spectrum antibiotics. 3. Acute respiratory failure. 4. Chronic kidney disease. 5. Leukocytosis. WBC now down to normal. RECOMMENDATIONS: 1. Continue daptomycin 2. Continue Diflucan 3. Continue Zosyn 4. Monitor clinical status
--- NOTE | 2017-12-31 12:47 | MP ---
cc: Ranulfo Muir MD DATE OF OPERATION: 12/31/2017 PREOPERATIVE DIAGNOSIS: Large tissue defect of the posterior gluteal/back/thigh region from necrotizing fasciitis measuring 30 x 40 cm. POSTOPERATIVE DIAGNOSIS: Large tissue defect of the posterior gluteal/back/thigh region from necrotizing fasciitis measuring 30 x 40 cm. PROCEDURE PERFORMED: 1. Removal of vacuum-assisted closure dressing. 2. Removal of necrotic subcutaneous tissue skin, fascia, muscle, bone. 3. Removal of coccyx bone. 4. Sharp debridement of necrotic tissue with a defect that measures 40 x 30 cm. ANESTHESIA: General. SURGEON: Ranulfo Muir MD INDICATIONS: This is an unfortunate 52-year-old female who had a large infected area on her back and gluteal region. Dr. Bazzi had initially performed a couple surgeries. He is unavailable. He has asked me to proceed with a staging debridement and checking this wound. DESCRIPTION OF PROCEDURE: The patient was taken to the operating room and placed in supine position. After placing her in prone position and she has already has a tracheostomy, the VAC sponge was removed. We then prepped and draped with Betadine. First, on the left side, there was a flap of skin that was black and this was excised sharply with sharp scissors and knives. Bleeding tissue was electrocauterized to cease the bleeding. Some other deep subcutaneous tissue over the muscle was excised. Some necrotic muscle was excised on the left side. The right side was with granulation tissue. The coccyx was exposed around some necrotic tissue, and for this reason, the coccyx bone was removed from the surrounding tissue. The sacrum was partially covered with some granulation tissue. Further fascia that appeared necrotic was sharply excised with sharp knives and scissors. The area was then copiously irrigated. Bleeding was stopped with the electrocautery device. The 30 x 40 cm defect was then covered with a large VAC sponge and then, the appliance was applied as previously. I did place a MAGALYS to the right gluteal region in a tissue flap to decompress some fluid that was pooling there. This was brought up through the sponge and connected to the VAC device as well. After a good seal, she then returned to the intensive care unit in critical condition. Ranulfo Muir MD JWIN/jeremy , 11:10 AM , 11:17 AM
[2017-12-31] MEDS: Enoxaparin Inj 30 MG/0.3 ML Syringe SQ SCH (13:28)
[2017-12-31] MEDS: Senna/Docusate Sodium 8.6/50 MG Tablet PO SCH ×2 (13:29→20:15)
[2017-12-31] MEDS: Potassium Bicarbonate 25 MEQ Effervescent Tablet NG/OG SCH ×2 (13:53→20:15)
--- NOTE | 2017-12-31 14:06 | P.DIET ---
Nutritional Evaluation Type of nutrition evaluation: follow-up Nutrition consult regarding: Tube Feeding Subjective Subjective Comments: Found down at home. 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%) % IBW: 122 (IBW = 123# (adjusted for amp)) Body Weight Used for Calculations: Actual (64.9 kg) Energy Needs - Lower Range (kCal/kg): 30 Energy Needs - Upper Range (kCal/kg): 35 Lower Limit kCal/kg (kCals): 1,947 Upper Limit kCal/kg (kCals): 2,272 Lower Limit Protein Factor (Grams per Kg): 1.2 Upper Limit Protein Factor (Grams per Kg): 1.6 Lower Protein Needs (Protein): 78 Upper Protein Needs (Protein): 104 Dietitian Reviewed in Medical Record: Curent medications, Intake & Output, Labs , Medical history, Tube feeding, Wound/DTI Diet Order: NPO Objective Comments: PMH includes: Hep C, DM, PAD, HTN, Osteomyelitis, R AKA Decubitus Ulcer; here w/Stage IV sacral decubitus s/p debridement of Necrotizing tissue Fasciitis Assessment Assessment: Pt is at high nutrition risk r/t increased needs for wound healing, clinical status and need for TFing. Pt's TF currently on hold for the OR for I%D and wound vac change to gluteal/back/thigh region.. Pt was tolerating Glucerna 1.5 @ 55mL/hr well prior to hold. Propofol provides some additional kcals (1.1 kcal/ ml). Pt is also receiving Alek bid which aids in wound healing. Labs, wts and clinical course reviewed. Pt has had multiple trips to the OR requiring TFing to be put on hold. When TF resumes, recommend increase to 60 mls/hr to provide 2160 kcals, 119 gms protein and 1093 mls of free water. Recommendations: Increase Glucerna 1.5 to 60 mls/hr goal Continue Alek bid Dietitian to Monitor: Lab values, Intake & Output, Tube feeding tolerance, Weight change, Wound/skin status, Medical course
--- NOTE | 2017-12-31 14:49 | P.PNCC ---
Subjective Subjective Remarks/Hospital Course: This 52-year-old woman with long-standing uncontrolled diabetes mellitus and severe peripheral arterial disease related to a long-term heavy smoking history was found down at her home and initial blood glucose was 610. Her lower back and buttocks was exquisitely tender and a mid line stage IV sacral decubitus was oozing purulent material and inflamed and the surrounding soft tissue. White count was not elevated but 90% neutrophils. Temperature 97 degrees. Moderately encephalopathic though conversant. X-rays revealed no fractures in the pelvis but CAT scan demonstrated extensive subcutaneous air emanating in both directions left and right from the mid sacral region. This is clearly necrotizing fasciitis or some other gas-forming infection and the woman is critically ill. She received vancomycin, Zosyn, and clindamycin antibiotic therapy as quickly as possible and was transferred to the ICU for ongoing resuscitation. Because of worsening hemodynamic stability she required intubation and mechanical ventilation followed by central line placement on arrival to the ICU. Insulin drip infusion was started in the emergency department and glucose had declined into the low 400s. She was not in ketoacidosis but lactic acid was elevated at 3.1. General surgery and orthopedic surgery were consulted for recommendations and it was felt that this woman was too unstable to tolerate an operative procedure immediately. We continue her ongoing resuscitation and trial in the ICU at this stage. 12/16: Following aggressive resuscitation yesterday for the treatment of severe hyperglycemia, septic shock, respiratory failure, metabolic acidosis, acute kidney injury, the patient went to the operating room with an extensive wide debridement bilateral gluteal and left thigh soft tissue and muscle. Primary antibiotic coverage at this point is vancomycin, cefepime, clindamycin. The patient started to make urine late yesterday afternoon and has continued to acceptable output since. Lactic acidosis is 2.0 this morning but metabolic acidosis persists despite bicarb drip. She remains on vasopressor support and hemodynamically unstable. 12/17: s/p debridement of large nec fasc wound. remains in shock today. also very hypoglycemic requiring multiple D50 amps overnight. 12/18: back in worsening shock. vasopressor support higher. required 2L crystalloid overnight and additional 1L and 500cc albumin today. ivc completely flat on bedside echo. LVEF hyperdynamic. no pericardial effusion. spoken with gen surg. plan to go back early to eval for worsening necrosis. fio2 also up to 100% and peep 10- hypoxic, likely early ARDS. 12/19: clinically doing better. still in shock on vasopressors, but requirements are lower and lactate cleared. Cr slowly uptrending. SVV still 19% today and appears to be volume responsive. gen surgery ordered 2 units prbc for falling hgb in the setting of blood loss with surgical intervention yesterday. fio2 improving. glycemic control also improving. 12/20: Markedly impaired oxygenation persists. Still requiring elevated end expiratory pressure. Nutritional support continues but she remains catabolic. It will be difficult to keep up with her nutritional needs. 12/21: Continued severe sepsis requiring vasopressor support and mechanical ventilation. Oxygenation remains impaired and smoldering metabolic acidosis persists. Despite hemodynamic instability the patient's only hope for survival is with infection source control through further debridement. Clearly a greatly increased risk however for any procedure. 12/22: Persistent septic shock course requiring vasopressor support and regular debridement. Good antibiotic coverage but she continues to require adjustment of ventilator, hemodynamic support drugs, antibiotics, intravenous fluids. Her nutritional status was quite depleted on arrival and continues to deteriorate despite adjuvant nutrition. 12/23: Patient continues septic course. She has developed venous clot throughout her left internal jugular subclavian and axillary vein system. Not a candidate for full anticoagulation because of need for frequent surgical debridement. We will pull out the catheter today and placing In the right subclavian route. 12/24 remains critically ill and septic remains on Rj-Synephrine at 50 mcg/kg/ min. WBC count increasing 20 6K today. Antibiotics have been changed by ID. Diflucan added for Talia UTI. Plan for OR today per surgery 12/25: Went to OR yesterday, s/p Incision, drainage with excisional debridement of back, buttock, thigh, and VAC change. Main septic White count increasing 31, 000 today, remains on pressors vasopressin and Rj-Synephrine. 12/26: Remains critical remains on vasopressin to maintain blood pressure and map above 65, currently off Rj-Synephrine. Remains severely fluid overloaded approximately 20 kg up. Despite pressor use will start IV diuretics to achieve negative fluid balance 12/27: Intubated sedated but more awake follows some commands. Hemoglobin down to 6.4, 2 g dropped, receiving 2 units of PRBC. No obvious bleeding noted. Currently had been weaned off the pressors. Or planned for tomorrow again 12/28: OR today for wound VAC change and I&D, possible tracheostomy. Potassium is 2.6 getting replaced. Hemoglobin stable. Remains off pressors. Urine output almost 8 L with forced diuresis 12/29: Status post OR for wound VAC change in tracheostomy yesterday. Getting for his diuresis urine output more than 4 L in 24 hours. Remains intubated sedated intermittently follows commands. Plan for I&D wound VAC change again on Saturday 12/30: Remains intubated sedated more stable. Urine output remains excellent with diuresis. Plan for OR in a.m. for further I&D and VAC change 12/31: Patient remains intubated plan for OR today with Dr. Muir for further I&D and wound VAC change. Making urine more than 4 L in 24 hours with diuresis. Getting closer to admission weight. Potassium 3.3 getting replacement Objective Vital Signs / I&O: Vital Signs 12/30/17 15:00 12/30/17 16:00 12/30/17 17:00 Temperature Pulse Rate 80 92 H 104 H Respiratory Rate 18 14 8 L Blood Pressure 154/74 H 169/81 H 153/68 H Pulse Oximetry 100 100 100 12/30/17 17:51 12/30/17 18:00 12/30/17 19:00 Temperature Pulse Rate 123 H 117 H Respiratory Rate 16 55 H 16 Blood Pressure 174/75 H 149/69 H Pulse Oximetry 100 100 100 12/30/17 20:00 12/30/17 21:00 12/30/17 21:39 Temperature 99.1 F Pulse Rate 91 H 79 Respiratory Rate 17 16 16 Blood Pressure 165/74 H Pulse Oximetry 100 100 100 12/30/17 21:42 12/30/17 22:00 12/30/17 22:01 Temperature Pulse Rate 89 86 86 Respiratory Rate 16 16 16 Blood Pressure 152/69 H 169/76 H Pulse Oximetry 100 100 100 12/30/17 23:00 12/30/17 23:09 12/30/17 23:19 Temperature Pulse Rate 112 H 87 99 H Respiratory Rate 18 16 19 Blood Pressure 164/72 H 175/74 H Pulse Oximetry 100 100 100 12/31/17 00:00 12/31/17 01:00 12/31/17 02:00 Temperature 99.8 F H Pulse Rate 80 71 79 Respiratory Rate 16 16 17 Blood Pressure 128/72 132/63 133/66 Pulse Oximetry 100 100 100 12/31/17 03:00 12/31/17 04:00 12/31/17 04:22 Temperature 99.6 F Pulse Rate 79 92 H Respiratory Rate 16 17 18 Blood Pressure 151/67 H 161/70 H Pulse Oximetry 100 100 100 12/31/17 05:08 12/31/17 08:41 12/31/17 09:46 Temperature Pulse Rate Respiratory Rate 18 16 Blood Pressure Pulse Oximetry 100 100 12/31/17 12:19 Temperature Pulse Rate Respiratory Rate 16 Blood Pressure Pulse Oximetry 100 Intake & Output 12/30/17 12/31/17 12/31/17 18:59 06:59 18:59 Intake Total 1670 / 1670 1897 / 1897 800 / 800 Output Total 2775 / 2775 2455 / 2455 Balance -1105 / -1105 -558 / -558 790 / 790 Weight 68.6 kg Intake: IV 1350 / 1350 1600 / 1600 550 / 550 D5W/LR Inj 1,000 ML @ 40 mls/hr 500 / 500 500 / 500 IV.CONT .Q24H RICARDO Rx#:[id number] Diprivan 1000 mg/100 ml Inj 1, 200 / 200 100 / 100 000 mg In 100 ml @ 5 MCG/KG/MIN 1.837 mls/hr IV.CONT TITRATE PRN Rx#:[id number] Flexbumin 25% Inj 100 ML @ 60 100 / 100 100 / 100 mls/hr IV.SIG Q12H RICARDO Rx#: [id number] Cubicin Inj 400 MG In NS Inj 100 / 100 100 ML @ 200 mls/hr IV.SIG Q24H RICARDO Rx#:[id number] Diflucan 400 mg Premix Bag 200 200 / 200 ML @ 100 mls/hr IV.SIG Q24H RICARDO Rx#:[id number] Zosyn 4.5 GM Premix 4.5 gm In 200 / 200 100 / 100 200 / 200 100 ml @ 200 mls/hr IV.SIG Q6H RICARDO Rx#:[id number] KCl 40 mEq Premix Inj 40 meq In 200 / 200 100 ml @ 25 mls/hr IV.SIG UNSCH PRN Rx#:[id number] fentaNYL 10 mcg/mL Premix Drip 250 / 250 500 / 500 250 / 250 2,500 mcg In 250 ml @ 50 MCG/HR 5 mls/hr IV.SIG TITRATE PRN Rx #:[id number] Tube Feeding 220 / 220 177 / 177 Tube Irrigant 100 / 100 120 / 120 Anesthesia Amount 250 / 250 Output: Stool 550 / 550 100 / 100 Estimated Blood Loss 30 / 30 10 / 10 Urine Amount (Catheter) 1825 / 1825 2200 / 2200 1 182 / 182 2200 / 2200 Wound Drainage 250 / 250 Sacrum 250 / 250 Wound Vac Amount 150 / 150 125 / 125 Posterior Sacrum 150 / 150 125 / 125 Other: Mode Setting Posterior Sacrum Continuous Continuous Date of Last Bowel Movement 12/30/17 12/31/17 Result Diagrams: 12/31/17 05:45 12/31/17 05:45 Objective Remarks: General: Ill-appearing middle-aged woman, intubated and lightly sedated. Overall anasarca present Head: Atraumatic, edentulous Neck: Supple, new trach site without significant bleeding Lungs: equal chest rise. Scattered rhonchi but acceptable air movement. peep 8. Heart: Regular rate rate and regular rhythm. no JVD. Abdomen: Soft, no guarding, no peritoneal irritation. Back: Wound VAC in place over lower lumbar region there is a moderate erythema to the skin over the pelvis and buttocks. Extremities: Warm, adequately perfused, status post below-knee amputation right side, necrotic ulceration over several toes left foot. Generalized edema involving the left arm. Generalized anasarca Neurological: Intubated and sedated, moves 4 limbs to stimulation. Pupils responsive. Follows commands when sedation is lightened Assessment and Plan - Problem List (1) Septic shock with acute organ dysfunction due to anaerobic bacteria Code(s): A41.4 - Sepsis due to anaerobes; R65.21 - Severe sepsis with septic shock Status: Acute (2) Acute respiratory failure Code(s): J96.00 - Acute respiratory failure, unspecified whether with hypoxia or hypercapnia Status: Acute (3) Necrotizing fasciitis Code(s): M72.6 - Necrotizing fasciitis Status: Acute (4) Type 2 diabetes mellitus with hyperosmolar nonketotic hyperglycemia Code(s): E11.01 - Type 2 diabetes mellitus with hyperosmolarity with coma Status: Acute (5) MARIO (acute kidney injury) Code(s): N17.9 - Acute kidney failure, unspecified Status: Acute (6) Lactic acidosis Code(s): E87.2 - Acidosis Status: Acute - Assessment and Plan Plan: Assessment: 52yF with large necrotizing soft tissue infection of the lower back and sacrum complicated by septic shock and multiorgan dysfunction. OR today for further I&D, wound VAC change and tracheostomy Plan: Neurological Acute metabolic encephalopathy -Sedation with propofol, Analgesia with fentanyl -Encephalopathy largely due to sepsis improving -RASS goal -1. Following commands today Cardiovascular Septic Shock- improving Myocardial dysfunction secondary to septic shock Fluid overload - Currently remains off all pressors - Received 2 units PRBC 12/27/2017 for hemoglobin of 6.4. Currently hemoglobin stable - IV Lasix due to fluid overload 20 mg every 12 with excellent response, getting closer to admission weight - Continue potassium replacement. Follow acid-base balance closely Respiratory Acute hypoxic and hypercarbic respiratory failure- persistent - Intubation and mechanical ventilation, Bronchodilators. - HOB elevated, vent bundle. wean fio2 for goal spo2 > 90% - CPAP trial attempt T-piece 1-2 hours - s/p Trach in OR 12/28/17. Endocrinology Diabetes Severe hypoglycemia - Holding Levemir - Med scale SSI. - Follow potassium and magnesium closely Hematology/Infectious Disease Septic Shock Necrotizing soft tissue infection - Follow white count and platelet count closely. - Continue daptomycin and Zosyn. Diflucan for fungal coverage. - OR per general surgery, next planned for I&D and wound VAC change on 2017 GI Acute protein calorie malnutrition- severe - prealbumin 5 on 12/18. severely malnourished. - daily bmp, mg, phos - Tube feeds infusing Acute kidney injury - Tristan required for hourly urine output and to protect perineal region - High risk for further deterioration in renal function - IV Lasix as above HEME Left upper extremity DVT - DVT left internal jugular, subclavian, axillary and distal arm veins. - Cannot anticoagulate secondary to blood loss anemia requiring blood transfusion, frequent surgeries Prophylaxis - Pepcid for GI ulcer prophylaxis - SCDs for DVT prophylaxis - Hold chemical DVT prophylaxis until ongoing surgical decisions regarding further debridement are made Lines: Left subclavian central venous line placed 12/15, discontinued 12/23. Right subclavian central venous line placed 12/23 Overall impression: This woman is critically ill and in septic shock with necrotizing fasciitis emanating from a deep chronic sacral decubitus ulcer. She remains hemodynamically unstable and requiring vasopressor support. Peripheral perfusion and urine output is acceptable. Level 3
[2017-12-31] MEDS: Potassium Chlor 20 mEq Premix 20 MEQ/100 ML PIGGYBACK IV.SIG PRN ×2 (17:10→20:14)
[2017-12-31] MEDS: DAPTOmycin Inj 400 MG in Sodium Chlor 0.9% Inj 100 ML IV.SIG SCH (17:46)
[2018-01-01] MEDS: Albumin Human 25% Inj 100 ML IV.SIG SCH ×2 (01:56→13:26)
[2018-01-01] MEDS: Propofol 1000 mg/100 ml Inj 1,000 MG/100 ML BOTTLE IV.CONT PRN ×3 (01:56→21:43)
[2018-01-01] MEDS: Piperacil/Tazo 4.5 GM Premix 4.5 GM/100 ML BAG IV.SIG SCH ×4 (01:57→18:25)
[2018-01-01] MEDS: Insulin NovoLIN Regular Correctional Sugar Inj SQ SCH ×6 (04:25→23:30)
[2018-01-01] MEDS: Oral Hygiene Kit OROPHARYNG SCH ×4 (04:25→23:30)
[2018-01-01] MEDS: Chlorhexidine 0.12% Oral Kit 15 ML UDC OROPHARYNG SCH ×2 (08:33→19:58)
[2018-01-01] MEDS: Potassium Bicarbonate 25 MEQ Effervescent Tablet NG/OG SCH ×2 (08:33→20:03)
[2018-01-01] MEDS: Enoxaparin Inj 30 MG/0.3 ML Syringe SQ SCH (08:33)
[2018-01-01] MEDS: Senna/Docusate Sodium 8.6/50 MG Tablet PO SCH ×2 (08:34→20:03)
[2018-01-01] MEDS: Famotidine PF Inj 20 MG/2 ML Vial IV.PUSH SCH ×2 (08:34→20:03)
[2018-01-01] MEDS: fentaNYL 10 mcg/mL Premix Drip 2,500 MCG/250 ML BAG IV.SIG PRN ×2 (09:11→19:57)
[2018-01-01] MEDS: Potassium Chlor 40 mEq Premix 40 MEQ/100 ML PIGGYBACK IV.SIG PRN ×2 (10:52→14:32)
[2018-01-01] MEDS: Dextrose 5%/Lactated Ringer's 1,000 ML IV.CONT SCH ×2 (11:48→23:05)
--- NOTE | 2018-01-01 12:39 | P.PNID ---
Subjective Remarks: Patient opens eyes. No other meaningful responses. Sedated. On the ventilator. Afebrile Post debridement 01/18/2018. This is a 52-year-old white female who was brought to the emergency department after she fell at home. The patient was noted to have profound weakness. She was evaluated in the emergency department and at that time had normal temperature and white blood cell count was also normal. She underwent CT scan of the abdomen and pelvis that showed extensive subcutaneous and soft tissue gas bilaterally with the left greater than right, most severe in the left gluteal region and extending into the proximal posterior thigh soft tissue and air-fluid dissecting through the gluteal musculature. The patient has a history of diabetes mellitus. Allergies/Adverse Reactions: Allergies No Known Allergies Allergy (Verified 12/15/17 07:54) Objective Vital Signs 12/31/17 13:00 12/31/17 14:00 12/31/17 14:22 Temperature Pulse Rate 86 87 Respiratory Rate 16 16 20 Blood Pressure Pulse Oximetry 100 100 12/31/17 15:00 12/31/17 16:00 12/31/17 16:01 Temperature Pulse Rate 84 72 Respiratory Rate 18 17 16 Blood Pressure Pulse Oximetry 100 100 100 12/31/17 16:33 12/31/17 17:00 12/31/17 17:01 Temperature Pulse Rate 67 71 72 Respiratory Rate 17 16 16 Blood Pressure 129/73 139/69 Pulse Oximetry 100 100 100 12/31/17 18:00 12/31/17 18:01 12/31/17 19:00 Temperature Pulse Rate 76 76 69 Respiratory Rate 17 18 16 Blood Pressure 141/70 H Pulse Oximetry 100 100 100 12/31/17 19:01 12/31/17 20:00 12/31/17 20:01 Temperature 99.1 F Pulse Rate 69 97 H 90 Respiratory Rate 16 16 16 Blood Pressure 130/65 141/73 H Pulse Oximetry 100 100 100 12/31/17 21:00 12/31/17 21:01 12/31/17 22:00 Temperature Pulse Rate 82 82 88 Respiratory Rate 16 16 16 Blood Pressure 117/64 Pulse Oximetry 100 100 100 12/31/17 22:01 12/31/17 23:00 12/31/17 23:01 Temperature Pulse Rate 85 85 85 Respiratory Rate 16 16 16 Blood Pressure 119/62 121/66 Pulse Oximetry 100 100 100 01/01/18 00:00 01/01/18 00:01 01/01/18 00:50 Temperature 99.4 F Pulse Rate 86 88 Respiratory Rate 16 16 16 Blood Pressure 120/67 Pulse Oximetry 100 100 100 01/01/18 01:00 01/01/18 01:01 01/01/18 02:00 Temperature Pulse Rate 87 86 74 Respiratory Rate 16 16 16 Blood Pressure 107/61 Pulse Oximetry 100 100 100 01/01/18 02:01 01/01/18 03:00 01/01/18 03:01 Temperature Pulse Rate 74 91 H 93 H Respiratory Rate 16 16 17 Blood Pressure 118/64 114/66 Pulse Oximetry 100 100 100 01/01/18 04:00 01/01/18 04:01 01/01/18 04:22 Temperature 100.2 F H Pulse Rate 105 H 96 H Respiratory Rate 17 16 16 Blood Pressure 122/61 Pulse Oximetry 100 100 93 L 01/01/18 09:23 01/01/18 12:09 Temperature Pulse Rate Respiratory Rate 16 17 Blood Pressure Pulse Oximetry 100 100 Intake & Output 12/31/17 01/01/18 01/01/18 18:59 06:59 18:59 Intake Total 1160 / 1160 2373 / 2373 450 / 450 Output Total 1969 Balance -810 / -810 423 / 423 450 / 450 Weight 76.4 kg Intake: IV 850 / 850 1949 450 / 450 D5W/LR Inj 1,000 ML @ 40 mls/hr 1000 / 1000 IV.CONT .Q24H RICARDO Rx#:[id number] Diprivan 1000 mg/100 ml Inj 1, 100 / 100 200 / 200 100 / 100 000 mg In 100 ml @ 5 MCG/KG/MIN 1.837 mls/hr IV.CONT TITRATE PRN Rx#:[id number] Flexbumin 25% Inj 100 ML @ 60 100 / 100 100 / 100 mls/hr IV.SIG Q12H RICARDO Rx#: [id number] Diflucan 400 mg Premix Bag 200 200 / 200 ML @ 100 mls/hr IV.SIG Q24H RICARDO Rx#:[id number] Zosyn 4.5 GM Premix 4.5 gm In 200 / 200 200 / 200 100 / 100 100 ml @ 200 mls/hr IV.SIG Q6H RICARDO Rx#:[id number] KCl 20 mEq Premix Inj 20 meq In 200 / 200 100 ml @ 50 mls/hr IV.SIG Q2H PRN Rx#:[id number] fentaNYL 10 mcg/mL Premix Drip 250 / 250 250 / 250 250 / 250 2,500 mcg In 250 ml @ 50 MCG/HR 5 mls/hr IV.SIG TITRATE PRN Rx #:[id number] Oral 0 / 0 Tube Feeding 20 / 20 303 / 303 Tube Irrigant 40 / 40 120 / 120 Water Bolus Amount 0 / 0 Anesthesia Amount 250 / 250 Output: Stool 100 / 100 500 / 500 Estimated Blood Loss 20 / 20 Urine Amount (Catheter) 1650 / 1650 1300 / 1300 1 1650 / 1650 1300 / 1300 Wound Vac Amount 200 / 200 150 / 150 Posterior Sacrum 200 / 200 150 / 150 Other: Mode Setting Posterior Sacrum Continuous Continuous Continuous Date of Last Bowel Movement 12/31/17 01/01/18 01/01/18 Lab - Hematology Results 12/31/17 05:45 WBC 7.9 RBC 2.68 L Hgb 8.3 L Hct 24.4 L MCV 90.7 MCH 30.9 MCHC 34.1 RDW 17.3 H Plt Count 181 MPV 8.8 Lab - Chemistry Results 12/30/17 12/30/17 12/30/17 15:55 16:00 19:21 Sodium Potassium 3.0 L Chloride Carbon Dioxide Anion Gap BUN Creatinine Estimated GFR POC Glucose 178 H 164 H Random Glucose Calcium Prot Corrected Calcium Total Bilirubin AST ALT Alkaline Phosphatase Total Protein Albumin 12/30/17 12/31/17 12/31/17 23:22 04:06 05:45 Sodium 147 H Potassium 3.3 L Chloride 105 Carbon Dioxide 32.5 H Anion Gap 10 BUN 11 Creatinine 0.76 Estimated GFR 80 L POC Glucose 110 148 H Random Glucose 130 H Calcium 7.4 L* Prot Corrected Calcium 7.6 L Total Bilirubin 0.8 AST 6 L ALT 6 L Alkaline Phosphatase 114 Total Protein 6.7 Albumin 3.0 L 12/31/17 12/31/17 12/31/17 07:47 14:02 17:24 Sodium Potassium Chloride Carbon Dioxide Anion Gap BUN Creatinine Estimated GFR POC Glucose 145 H 208 H 128 H Random Glucose Calcium Prot Corrected Calcium Total Bilirubin AST ALT Alkaline Phosphatase Total Protein Albumin 12/31/17 12/31/17 01/01/18 19:47 23:14 03:35 Sodium Potassium Chloride Carbon Dioxide Anion Gap BUN Creatinine Estimated GFR POC Glucose 125 H 150 H 225 H Random Glucose Calcium Prot Corrected Calcium Total Bilirubin AST ALT Alkaline Phosphatase Total Protein Albumin 01/01/18 01/01/18 01/01/18 08:00 08:45 12:17 Sodium Potassium 3.2 L Chloride Carbon Dioxide Anion Gap BUN Creatinine Estimated GFR POC Glucose 198 H 227 H Random Glucose Calcium Prot Corrected Calcium Total Bilirubin AST ALT Alkaline Phosphatase Total Protein Albumin Imaging: ITS Impressions Femur X-Ray 12/15/17 07:05 CONCLUSION: No fracture is identified. There is extensive soft tissue air in the right gluteal region and extending into the proximal and mid posterior thigh. The soft tissue air suggests an open wound. Pelvis X-Ray 12/15/17 07:05 CONCLUSION: No fracture is identified. However, there is extensive soft tissue air in the left gluteal region and left proximal thigh. Pelvis CT 12/15/17 07:52 CONCLUSION: 1. No fracture is identified. 2. Extensive subcutaneous and soft tissue gas bilaterally, left greater than right. It is most severe in the left gluteal region and extends into the proximal posterior thigh. The soft tissue air dissects through the gluteal musculature. There is adjacent subcutaneous edema. Foot X-Ray 12/18/17 00:00 CONCLUSION: Remote small avulsion fracture at the fifth toe. No acute bony abnormality. Venous Doppler Study 12/22/17 00:00 CONCLUSION: Extensive deep vein thrombosis of the left upper extremity. Chest X-Ray 12/31/17 06:00 CONCLUSION: 1. Tracheostomy tube is now seen. Endotracheal tube is no longer seen. 2. Bilateral pulmonary opacity is again seen with interval increase in the right lower lung zone opacity. No change in the left. Physical Exam: PHYSICAL EXAMINATION: GENERAL: Sedated. HEENT: Unable to assess fully. Pale sclera. Oropharynx intubated. NECK: Supple. No adenopathy or swelling. LUNGS: Bibasilar rhonchi. HEART: irregular S1 and S2. 1-2/6 systolic murmur at the left sternal border. ABDOMEN: Bowel sounds present, soft. BACK: Surgical wound post debridement across the lower back, buttock and thigh. Vac in place. EXTREMITIES: No clubbing, no cyanosis or edema. abrasion with dry necrotic changes at left dorsal toes 2-4. SKIN: No diffuse rash. Scattered ecchymotic lesions. NEUROLOGIC: Unable to assess. PSYCHIATRIC: Unable to assess. Assessment and Plan - Plan IMPRESSION: 1. Necrotizing fasciitis of the back, buttock and thigh. 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 2. Septic shock. Responded to broad-spectrum antibiotics. 3. Acute respiratory failure. 4. Chronic kidney disease. 5. Leukocytosis. WBC now down to normal. RECOMMENDATIONS: 1. Stop daptomycin 2. Continue Diflucan 3. Continue Zosyn 4. Monitor clinical status
--- NOTE | 2018-01-01 15:22 | P.PNCC ---
Subjective Subjective Remarks/Hospital Course: This 52-year-old woman with long-standing uncontrolled diabetes mellitus and severe peripheral arterial disease related to a long-term heavy smoking history was found down at her home and initial blood glucose was 610. Her lower back and buttocks was exquisitely tender and a mid line stage IV sacral decubitus was oozing purulent material and inflamed and the surrounding soft tissue. White count was not elevated but 90% neutrophils. Temperature 97 degrees. Moderately encephalopathic though conversant. X-rays revealed no fractures in the pelvis but CAT scan demonstrated extensive subcutaneous air emanating in both directions left and right from the mid sacral region. This is clearly necrotizing fasciitis or some other gas-forming infection and the woman is critically ill. She received vancomycin, Zosyn, and clindamycin antibiotic therapy as quickly as possible and was transferred to the ICU for ongoing resuscitation. Because of worsening hemodynamic stability she required intubation and mechanical ventilation followed by central line placement on arrival to the ICU. Insulin drip infusion was started in the emergency department and glucose had declined into the low 400s. She was not in ketoacidosis but lactic acid was elevated at 3.1. General surgery and orthopedic surgery were consulted for recommendations and it was felt that this woman was too unstable to tolerate an operative procedure immediately. We continue her ongoing resuscitation and trial in the ICU at this stage. 12/16: Following aggressive resuscitation yesterday for the treatment of severe hyperglycemia, septic shock, respiratory failure, metabolic acidosis, acute kidney injury, the patient went to the operating room with an extensive wide debridement bilateral gluteal and left thigh soft tissue and muscle. Primary antibiotic coverage at this point is vancomycin, cefepime, clindamycin. The patient started to make urine late yesterday afternoon and has continued to acceptable output since. Lactic acidosis is 2.0 this morning but metabolic acidosis persists despite bicarb drip. She remains on vasopressor support and hemodynamically unstable. 12/17: s/p debridement of large nec fasc wound. remains in shock today. also very hypoglycemic requiring multiple D50 amps overnight. 12/18: back in worsening shock. vasopressor support higher. required 2L crystalloid overnight and additional 1L and 500cc albumin today. ivc completely flat on bedside echo. LVEF hyperdynamic. no pericardial effusion. spoken with gen surg. plan to go back early to eval for worsening necrosis. fio2 also up to 100% and peep 10- hypoxic, likely early ARDS. 12/19: clinically doing better. still in shock on vasopressors, but requirements are lower and lactate cleared. Cr slowly uptrending. SVV still 19% today and appears to be volume responsive. gen surgery ordered 2 units prbc for falling hgb in the setting of blood loss with surgical intervention yesterday. fio2 improving. glycemic control also improving. 12/20: Markedly impaired oxygenation persists. Still requiring elevated end expiratory pressure. Nutritional support continues but she remains catabolic. It will be difficult to keep up with her nutritional needs. 12/21: Continued severe sepsis requiring vasopressor support and mechanical ventilation. Oxygenation remains impaired and smoldering metabolic acidosis persists. Despite hemodynamic instability the patient's only hope for survival is with infection source control through further debridement. Clearly a greatly increased risk however for any procedure. 12/22: Persistent septic shock course requiring vasopressor support and regular debridement. Good antibiotic coverage but she continues to require adjustment of ventilator, hemodynamic support drugs, antibiotics, intravenous fluids. Her nutritional status was quite depleted on arrival and continues to deteriorate despite adjuvant nutrition. 12/23: Patient continues septic course. She has developed venous clot throughout her left internal jugular subclavian and axillary vein system. Not a candidate for full anticoagulation because of need for frequent surgical debridement. We will pull out the catheter today and placing In the right subclavian route. 12/24 remains critically ill and septic remains on Rj-Synephrine at 50 mcg/kg/ min. WBC count increasing 20 6K today. Antibiotics have been changed by ID. Diflucan added for Talia UTI. Plan for OR today per surgery 12/25: Went to OR yesterday, s/p Incision, drainage with excisional debridement of back, buttock, thigh, and VAC change. Main septic White count increasing 31, 000 today, remains on pressors vasopressin and Rj-Synephrine. 12/26: Remains critical remains on vasopressin to maintain blood pressure and map above 65, currently off Rj-Synephrine. Remains severely fluid overloaded approximately 20 kg up. Despite pressor use will start IV diuretics to achieve negative fluid balance 12/27: Intubated sedated but more awake follows some commands. Hemoglobin down to 6.4, 2 g dropped, receiving 2 units of PRBC. No obvious bleeding noted. Currently had been weaned off the pressors. Or planned for tomorrow again 12/28: OR today for wound VAC change and I&D, possible tracheostomy. Potassium is 2.6 getting replaced. Hemoglobin stable. Remains off pressors. Urine output almost 8 L with forced diuresis 12/29: Status post OR for wound VAC change in tracheostomy yesterday. Getting for his diuresis urine output more than 4 L in 24 hours. Remains intubated sedated intermittently follows commands. Plan for I&D wound VAC change again on Saturday 12/30: Remains intubated sedated more stable. Urine output remains excellent with diuresis. Plan for OR in a.m. for further I&D and VAC change 12/31: Patient remains intubated plan for OR today with Dr. Muir for further I&D and wound VAC change. Making urine more than 4 L in 24 hours with diuresis. Getting closer to admission weight. Potassium 3.3 getting replacement 01/01: Remains intubated sedated failing CPAP due to low tidal volumes. Status post OR yesterday for the I&D tomorrow planned by general surgery. Urine output 3 L in 24 hours Objective Vital Signs / I&O: Vital Signs 12/31/17 16:00 12/31/17 16:01 12/31/17 16:33 Temperature Pulse Rate 72 67 Respiratory Rate 17 16 17 Blood Pressure 129/73 Pulse Oximetry 100 100 100 12/31/17 17:00 12/31/17 17:01 12/31/17 18:00 Temperature Pulse Rate 71 72 76 Respiratory Rate 16 16 17 Blood Pressure 139/69 Pulse Oximetry 100 100 100 12/31/17 18:01 12/31/17 19:00 12/31/17 19:01 Temperature Pulse Rate 76 69 69 Respiratory Rate 18 16 16 Blood Pressure 141/70 H 130/65 Pulse Oximetry 100 100 100 12/31/17 20:00 12/31/17 20:01 12/31/17 21:00 Temperature 99.1 F Pulse Rate 97 H 90 82 Respiratory Rate 16 16 16 Blood Pressure 141/73 H Pulse Oximetry 100 100 100 12/31/17 21:01 12/31/17 22:00 12/31/17 22:01 Temperature Pulse Rate 82 88 85 Respiratory Rate 16 16 16 Blood Pressure 117/64 119/62 Pulse Oximetry 100 100 100 12/31/17 23:00 12/31/17 23:01 01/01/18 00:00 Temperature 99.4 F Pulse Rate 85 85 86 Respiratory Rate 16 16 16 Blood Pressure 121/66 Pulse Oximetry 100 100 100 01/01/18 00:01 01/01/18 00:50 01/01/18 01:00 Temperature Pulse Rate 88 87 Respiratory Rate 16 16 16 Blood Pressure 120/67 Pulse Oximetry 100 100 100 01/01/18 01:01 01/01/18 02:00 01/01/18 02:01 Temperature Pulse Rate 86 74 74 Respiratory Rate 16 16 16 Blood Pressure 107/61 118/64 Pulse Oximetry 100 100 100 01/01/18 03:00 01/01/18 03:01 01/01/18 04:00 Temperature 100.2 F H Pulse Rate 91 H 93 H 105 H Respiratory Rate 16 17 17 Blood Pressure 114/66 Pulse Oximetry 100 100 100 01/01/18 04:01 01/01/18 04:22 01/01/18 05:00 Temperature Pulse Rate 96 H 70 Respiratory Rate 16 16 16 Blood Pressure 122/61 Pulse Oximetry 100 93 L 100 01/01/18 05:01 01/01/18 06:00 01/01/18 06:01 Temperature Pulse Rate 65 71 74 Respiratory Rate 16 16 16 Blood Pressure 123/57 L 117/56 L Pulse Oximetry 100 100 100 01/01/18 07:00 01/01/18 07:01 01/01/18 08:00 Temperature 98.5 F Pulse Rate 60 76 70 Respiratory Rate 16 16 16 Blood Pressure 120/58 L Pulse Oximetry 98 99 100 01/01/18 08:01 01/01/18 09:00 01/01/18 09:01 Temperature Pulse Rate 79 89 84 Respiratory Rate 16 16 16 Blood Pressure 129/61 134/62 Pulse Oximetry 100 100 100 01/01/18 09:23 01/01/18 10:00 01/01/18 10:01 Temperature Pulse Rate 78 79 Respiratory Rate 16 16 16 Blood Pressure 101/53 L Pulse Oximetry 100 100 100 01/01/18 11:00 01/01/18 11:01 01/01/18 12:00 Temperature 97.6 F Pulse Rate 81 81 76 Respiratory Rate 16 16 16 Blood Pressure 128/60 Pulse Oximetry 100 100 100 01/01/18 12:01 01/01/18 12:09 Temperature Pulse Rate 76 Respiratory Rate 16 17 Blood Pressure 124/62 Pulse Oximetry 100 100 Intake & Output 12/31/17 01/01/18 01/01/18 18:59 06:59 18:59 Intake Total 1160 / 1160 2373 / 2373 650 / 650 Output Total 1969 Balance -810 / -810 423 / 423 650 / 650 Weight 76.4 kg Intake: IV 850 / 850 1949 650 / 650 D5W/LR Inj 1,000 ML @ 40 mls/hr 1000 / 1000 IV.CONT .Q24H RICARDO Rx#:[id number] Diprivan 1000 mg/100 ml Inj 1, 100 / 100 200 / 200 100 / 100 000 mg In 100 ml @ 5 MCG/KG/MIN 1.837 mls/hr IV.CONT TITRATE PRN Rx#:[id number] Flexbumin 25% Inj 100 ML @ 60 100 / 100 100 / 100 mls/hr IV.SIG Q12H RICARDO Rx#: [id number] Diflucan 400 mg Premix Bag 200 200 / 200 ML @ 100 mls/hr IV.SIG Q24H RICARDO Rx#:[id number] Zosyn 4.5 GM Premix 4.5 gm In 200 / 200 200 / 200 200 / 200 100 ml @ 200 mls/hr IV.SIG Q6H RICARDO Rx#:[id number] KCl 20 mEq Premix Inj 20 meq In 200 / 200 100 ml @ 50 mls/hr IV.SIG Q2H PRN Rx#:[id number] KCl 40 mEq Premix Inj 40 meq In 100 / 100 100 ml @ 25 mls/hr IV.SIG UNSCH PRN Rx#:[id number] fentaNYL 10 mcg/mL Premix Drip 250 / 250 250 / 250 250 / 250 2,500 mcg In 250 ml @ 50 MCG/HR 5 mls/hr IV.SIG TITRATE PRN Rx #:[id number] Oral 0 / 0 Tube Feeding 20 / 20 303 / 303 Tube Irrigant 40 / 40 120 / 120 Water Bolus Amount 0 / 0 Anesthesia Amount 250 / 250 Output: Stool 100 / 100 500 / 500 Estimated Blood Loss 20 / 20 Urine Amount (Catheter) 1650 / 1650 1300 / 1300 1 1650 / 1650 1300 / 1300 Wound Vac Amount 200 / 200 150 / 150 Posterior Sacrum 200 / 200 150 / 150 Other: Mode Setting Posterior Sacrum Continuous Continuous Continuous Date of Last Bowel Movement 12/31/17 01/01/18 01/01/18 Result Diagrams: 12/31/17 05:45 01/01/18 08:45 Objective Remarks: General: Ill-appearing middle-aged woman, intubated and lightly sedated. Anasarca present Head: Atraumatic, edentulous Neck: Supple, new trach site without significant bleeding Lungs: equal chest rise. Scattered rhonchi but acceptable air movement. peep 8. Heart: Regular rate rate and regular rhythm. no JVD. Abdomen: Soft, no guarding, no peritoneal irritation. Back: Wound VAC in place over lower lumbar region there is a moderate erythema to the skin over the pelvis and buttocks. Extremities: Warm, adequately perfused, status post below-knee amputation right side, necrotic ulceration over several toes left foot. Generalized edema involving the left arm. Neurological: Intubated and sedated, moves 4 limbs to stimulation. Pupils responsive. Follows commands x4 when sedation is lightened Assessment and Plan - Problem List (1) Septic shock with acute organ dysfunction due to anaerobic bacteria Code(s): A41.4 - Sepsis due to anaerobes; R65.21 - Severe sepsis with septic shock Status: Acute (2) Acute respiratory failure Code(s): J96.00 - Acute respiratory failure, unspecified whether with hypoxia or hypercapnia Status: Acute (3) Necrotizing fasciitis Code(s): M72.6 - Necrotizing fasciitis Status: Acute (4) Type 2 diabetes mellitus with hyperosmolar nonketotic hyperglycemia Code(s): E11.01 - Type 2 diabetes mellitus with hyperosmolarity with coma Status: Acute (5) MARIO (acute kidney injury) Code(s): N17.9 - Acute kidney failure, unspecified Status: Acute (6) Lactic acidosis Code(s): E87.2 - Acidosis Status: Acute - Assessment and Plan Plan: Assessment: 52yF with large necrotizing soft tissue infection of the lower back and sacrum complicated by septic shock and multiorgan dysfunction. OR 12/31 for further I&D, wound VAC change and tracheostomy Plan: Neurological Acute metabolic encephalopathy -Sedation with propofol, Analgesia with fentanyl -Encephalopathy largely due to sepsis improving, daily sedation location -RASS goal -1. Following commands x4 Cardiovascular Septic Shock- improving Myocardial dysfunction secondary to septic shock Fluid overload - Currently remains off all pressors - Received 2 units PRBC 12/27/2017 for hemoglobin of 6.4. Currently hemoglobin stable - IV Lasix due to fluid overload 20 mg every 12 with excellent response, getting closer to admission weight - Continue potassium replacement. Follow acid-base balance closely Respiratory Acute hypoxic and hypercarbic respiratory failure- persistent - Intubation and mechanical ventilation, Bronchodilators. - HOB elevated, vent bundle. wean fio2 for goal spo2 > 90% - CPAP trial daily, failed today due to low tidal volumes - s/p Trach in OR 12/28/17. Endocrinology Diabetes Severe hypoglycemia - Med scale SSI. - Follow potassium and magnesium closely Hematology/Infectious Disease Septic Shock Necrotizing soft tissue infection - Follow white count and platelet count closely. - Continue daptomycin and Zosyn. Diflucan for fungal coverage. - OR per general surgery, s/p I&D and wound VAC change on 12/31/2017, next planned OR 01/02/18 GI Acute protein calorie malnutrition- severe - prealbumin 5 on 12/18. severely malnourished. - daily bmp, mg, phos - Tube feeds infusing Acute kidney injury - Tristan required for hourly urine output and to protect perineal region - High risk for further deterioration in renal function - IV Lasix as above HEME Left upper extremity DVT - DVT left internal jugular, subclavian, axillary and distal arm veins. - Cannot anticoagulate secondary to blood loss anemia requiring blood transfusion, frequent surgeries Prophylaxis - Pepcid for GI ulcer prophylaxis - SCDs for DVT prophylaxis - Hold chemical DVT prophylaxis until ongoing surgical decisions regarding further debridement are made Lines: Left subclavian central venous line placed 12/15, discontinued 12/23. Right subclavian central venous line placed 12/23 Overall impression: This woman is critically ill and in septic shock with necrotizing fasciitis emanating from a deep chronic sacral decubitus ulcer. Peripheral perfusion and urine output is acceptable. Still requiring multiple or trips for I&D and VAC changes. Family request continued aggressive care Level 3
--- NOTE | 2018-01-01 16:06 | P.PNGS ---
Subjective Interval history: Eyes opened Sedation just recently turned off Physical Exam Vital signs: Vital Signs 12/31/17 16:33 12/31/17 17:00 12/31/17 17:01 Temperature Pulse Rate 67 71 72 Respiratory Rate 17 16 16 Blood Pressure 129/73 139/69 Pulse Oximetry 100 100 100 12/31/17 18:00 12/31/17 18:01 12/31/17 19:00 Temperature Pulse Rate 76 76 69 Respiratory Rate 17 18 16 Blood Pressure 141/70 H Pulse Oximetry 100 100 100 12/31/17 19:01 12/31/17 20:00 12/31/17 20:01 Temperature 99.1 F Pulse Rate 69 97 H 90 Respiratory Rate 16 16 16 Blood Pressure 130/65 141/73 H Pulse Oximetry 100 100 100 12/31/17 21:00 12/31/17 21:01 12/31/17 22:00 Temperature Pulse Rate 82 82 88 Respiratory Rate 16 16 16 Blood Pressure 117/64 Pulse Oximetry 100 100 100 12/31/17 22:01 12/31/17 23:00 12/31/17 23:01 Temperature Pulse Rate 85 85 85 Respiratory Rate 16 16 16 Blood Pressure 119/62 121/66 Pulse Oximetry 100 100 100 01/01/18 00:00 01/01/18 00:01 01/01/18 00:50 Temperature 99.4 F Pulse Rate 86 88 Respiratory Rate 16 16 16 Blood Pressure 120/67 Pulse Oximetry 100 100 100 01/01/18 01:00 01/01/18 01:01 01/01/18 02:00 Temperature Pulse Rate 87 86 74 Respiratory Rate 16 16 16 Blood Pressure 107/61 Pulse Oximetry 100 100 100 01/01/18 02:01 01/01/18 03:00 01/01/18 03:01 Temperature Pulse Rate 74 91 H 93 H Respiratory Rate 16 16 17 Blood Pressure 118/64 114/66 Pulse Oximetry 100 100 100 01/01/18 04:00 01/01/18 04:01 01/01/18 04:22 Temperature 100.2 F H Pulse Rate 105 H 96 H Respiratory Rate 17 16 16 Blood Pressure 122/61 Pulse Oximetry 100 100 93 L 01/01/18 05:00 01/01/18 05:01 01/01/18 06:00 Temperature Pulse Rate 70 65 71 Respiratory Rate 16 16 16 Blood Pressure 123/57 L Pulse Oximetry 100 100 100 01/01/18 06:01 01/01/18 07:00 01/01/18 07:01 Temperature Pulse Rate 74 60 76 Respiratory Rate 16 16 16 Blood Pressure 117/56 L 120/58 L Pulse Oximetry 100 98 99 01/01/18 08:00 01/01/18 08:01 01/01/18 09:00 Temperature 98.5 F Pulse Rate 70 79 89 Respiratory Rate 16 16 16 Blood Pressure 129/61 Pulse Oximetry 100 100 100 01/01/18 09:01 01/01/18 09:23 01/01/18 10:00 Temperature Pulse Rate 84 78 Respiratory Rate 16 16 16 Blood Pressure 134/62 Pulse Oximetry 100 100 100 01/01/18 10:01 01/01/18 11:00 01/01/18 11:01 Temperature Pulse Rate 79 81 81 Respiratory Rate 16 16 16 Blood Pressure 101/53 L 128/60 Pulse Oximetry 100 100 100 01/01/18 12:00 01/01/18 12:01 01/01/18 12:09 Temperature 97.6 F Pulse Rate 76 76 Respiratory Rate 16 16 17 Blood Pressure 124/62 Pulse Oximetry 100 100 100 Intake & Output 12/31/17 01/01/18 01/01/18 18:59 06:59 18:59 Intake Total 1160 / 1160 2373 / 2373 950 / 950 Output Total 1969 Balance -810 / -810 423 / 423 950 / 950 Weight 76.4 kg Intake: IV 850 / 850 1949 950 / 950 D5W/LR Inj 1,000 ML @ 40 mls/hr 1000 / 1000 IV.CONT .Q24H [facility] Rx#:[id number] Diprivan 1000 mg/100 ml Inj 1, 100 / 100 200 / 200 100 / 100 000 mg In 100 ml @ 5 MCG/KG/MIN 1.837 mls/hr IV.CONT TITRATE PRN Rx#:[id number] Flexbumin 25% Inj 100 ML @ 60 100 / 100 100 / 100 100 / 100 mls/hr IV.SIG Q12H [facility] Rx#: [id number] Diflucan 400 mg Premix Bag 200 200 / 200 200 / 200 ML @ 100 mls/hr IV.SIG Q24H [facility] Rx#:[id number] Zosyn 4.5 GM Premix 4.5 gm In 200 / 200 200 / 200 200 / 200 100 ml @ 200 mls/hr IV.SIG Q6H [facility] Rx#:[id number] KCl 20 mEq Premix Inj 20 meq In 200 / 200 100 ml @ 50 mls/hr IV.SIG Q2H PRN Rx#:[id number] KCl 40 mEq Premix Inj 40 meq In 100 / 100 100 ml @ 25 mls/hr IV.SIG UNSCH PRN Rx#:[id number] fentaNYL 10 mcg/mL Premix Drip 250 / 250 250 / 250 250 / 250 2,500 mcg In 250 ml @ 50 MCG/HR 5 mls/hr IV.SIG TITRATE PRN Rx #:[id number] Oral 0 / 0 Tube Feeding 20 / 20 303 / 303 Tube Irrigant 40 / 40 120 / 120 Water Bolus Amount 0 / 0 Anesthesia Amount 250 / 250 Output: Stool 100 / 100 500 / 500 Estimated Blood Loss 20 / 20 Urine Amount (Catheter) 1650 / 1650 1300 / 1300 1 1650 / 1650 1300 / 1300 Wound Vac Amount 200 / 200 150 / 150 Posterior Sacrum 200 / 200 150 / 150 Other: Mode Setting Posterior Sacrum Continuous Continuous Continuous Date of Last Bowel Movement 12/31/17 01/01/18 01/01/18 Narrative: Eyes open; non verbal trach without any complications Abd: soft Wound Vac in place to back/thigh ---good seal - Urinary Catheter Management 1 Cath placed during this visit: yes Reason for continuing: Severe pressure ulcer/wound Insertion date: 12/15/17 Results - Labs 12/31/17 05:45 01/01/18 08:45 Laboratory Results - last 24 hr 12/31/17 12/31/17 12/31/17 17:24 19:47 23:14 Potassium POC Glucose 128 H 125 H 150 H 01/01/18 01/01/18 01/01/18 03:35 08:00 08:45 Potassium 3.2 L POC Glucose 225 H 198 H 01/01/18 12:17 Potassium POC Glucose 227 H - Imaging Imaging: ITS Impressions Femur X-Ray 12/15/17 07:05 CONCLUSION: No fracture is identified. There is extensive soft tissue air in the right gluteal region and extending into the proximal and mid posterior thigh. The soft tissue air suggests an open wound. Pelvis X-Ray 12/15/17 07:05 CONCLUSION: No fracture is identified. However, there is extensive soft tissue air in the left gluteal region and left proximal thigh. Pelvis CT 12/15/17 07:52 CONCLUSION: 1. No fracture is identified. 2. Extensive subcutaneous and soft tissue gas bilaterally, left greater than right. It is most severe in the left gluteal region and extends into the proximal posterior thigh. The soft tissue air dissects through the gluteal musculature. There is adjacent subcutaneous edema. Foot X-Ray 12/18/17 00:00 CONCLUSION: Remote small avulsion fracture at the fifth toe. No acute bony abnormality. Venous Doppler Study 12/22/17 00:00 CONCLUSION: Extensive deep vein thrombosis of the left upper extremity. Chest X-Ray 12/31/17 06:00 CONCLUSION: 1. Tracheostomy tube is now seen. Endotracheal tube is no longer seen. 2. Bilateral pulmonary opacity is again seen with interval increase in the right lower lung zone opacity. No change in the left. Assessment and Plan - Assessment (1) Necrotizing fasciitis of pelvic region and thigh Code(s): M72.6 - Necrotizing fasciitis Status: Acute Plan: 52yo female with multiple medical comorbidities, s/p debridement of nec fasc -Remains critically ill -Continuos to be off pressors -Plan for vac change tomorrow in the OR -Obtain consents -Continue TF for today; NPO after MN -ID following
[2018-01-02] MEDS: Piperacil/Tazo 4.5 GM Premix 4.5 GM/100 ML BAG IV.SIG SCH ×4 (00:05→18:30)
[2018-01-02] MEDS: Albumin Human 25% Inj 100 ML IV.SIG SCH ×2 (01:47→14:51)
[2018-01-02] MEDS: Oral Hygiene Kit OROPHARYNG SCH ×4 (04:13→23:51)
[2018-01-02] MEDS: Insulin NovoLIN Regular Correctional Sugar Inj SQ SCH ×5 (04:13→20:31)
[2018-01-02] MEDS: Propofol 1000 mg/100 ml Inj 1,000 MG/100 ML BOTTLE IV.CONT PRN ×3 (04:20→21:31)
[2018-01-02] MEDS: fentaNYL 10 mcg/mL Premix Drip 2,500 MCG/250 ML BAG IV.SIG PRN ×3 (04:21→23:51)
[2018-01-02 06:04] LABS: Hemoglobin 8.3 gm/dL (11.6-15.3); Mean Corpuscular HGB Conc 33.1 % (32.0-36.0); Mean Corpuscular Hemoglobin 30.4 pg (27.0-34.0); Mean Corpuscular Volume 91.9 fL (80.0-100.0); Mean Platelet Volume 9.3 fL (7.0-11.0); Platelet Count 165 th/mm3 (150-450); Red Blood Count 2.72 mil/mm3 (4.00-5.30); Red Cell Distribution Width 16.5 % (11.6-17.2); White Blood Count 9.3 th/mm3 (4.0-11.0)
[2018-01-02 06:22] LABS: Alanine Aminotransferase 7 U/L (10-53); Albumin 3.2 g/dL (3.4-5.0); Anion Gap 9 meq/L (5-15); Aspartate Aminotransferase 7 U/L (15-37); Blood Urea Nitrogen 16 mg/dL (7-18); Calcium 7.9 mg/dL (8.5-10.1); Carbon Dioxide 30.4 meq/L (21.0-32.0); Chloride 104 meq/L (98-107); Glomerular Filtration Rate 63 mL/min (>89); Glucose,Random 192 mg/dL (74-106); Potassium 3.2 meq/L (3.5-5.1); Sodium 143 meq/L (136-145)
[2018-01-02 06:24] LABS: Alkaline Phosphatase 109 U/L (45-117); Total Protein 7.1 g/dL (6.4-8.2)
[2018-01-02] MEDS: Potassium Chlor 40 mEq Premix 40 MEQ/100 ML PIGGYBACK IV.SIG PRN ×2 (06:30→10:50)
[2018-01-02] MEDS: Famotidine PF Inj 20 MG/2 ML Vial IV.PUSH SCH ×2 (08:05→21:31)
[2018-01-02] MEDS: Enoxaparin Inj 30 MG/0.3 ML Syringe SQ SCH (08:06)
[2018-01-02] MEDS: Potassium Bicarbonate 25 MEQ Effervescent Tablet NG/OG SCH ×2 (08:07→21:30)
[2018-01-02] MEDS: Chlorhexidine 0.12% Oral Kit 15 ML UDC OROPHARYNG SCH ×2 (08:07→20:31)
[2018-01-02] MEDS: Senna/Docusate Sodium 8.6/50 MG Tablet PO SCH ×2 (08:08→21:31)
--- NOTE | 2018-01-02 09:14 | P.PNCC ---
Subjective Subjective Remarks/Hospital Course: This 52-year-old woman with long-standing uncontrolled diabetes mellitus and severe peripheral arterial disease related to a long-term heavy smoking history was found down at her home and initial blood glucose was 610. Her lower back and buttocks was exquisitely tender and a mid line stage IV sacral decubitus was oozing purulent material and inflamed and the surrounding soft tissue. White count was not elevated but 90% neutrophils. Temperature 97 degrees. Moderately encephalopathic though conversant. X-rays revealed no fractures in the pelvis but CAT scan demonstrated extensive subcutaneous air emanating in both directions left and right from the mid sacral region. This is clearly necrotizing fasciitis or some other gas-forming infection and the woman is critically ill. She received vancomycin, Zosyn, and clindamycin antibiotic therapy as quickly as possible and was transferred to the ICU for ongoing resuscitation. Because of worsening hemodynamic stability she required intubation and mechanical ventilation followed by central line placement on arrival to the ICU. Insulin drip infusion was started in the emergency department and glucose had declined into the low 400s. She was not in ketoacidosis but lactic acid was elevated at 3.1. General surgery and orthopedic surgery were consulted for recommendations and it was felt that this woman was too unstable to tolerate an operative procedure immediately. We continue her ongoing resuscitation and trial in the ICU at this stage. 12/16: Following aggressive resuscitation yesterday for the treatment of severe hyperglycemia, septic shock, respiratory failure, metabolic acidosis, acute kidney injury, the patient went to the operating room with an extensive wide debridement bilateral gluteal and left thigh soft tissue and muscle. Primary antibiotic coverage at this point is vancomycin, cefepime, clindamycin. The patient started to make urine late yesterday afternoon and has continued to acceptable output since. Lactic acidosis is 2.0 this morning but metabolic acidosis persists despite bicarb drip. She remains on vasopressor support and hemodynamically unstable. 12/17: s/p debridement of large nec fasc wound. remains in shock today. also very hypoglycemic requiring multiple D50 amps overnight. 12/18: back in worsening shock. vasopressor support higher. required 2L crystalloid overnight and additional 1L and 500cc albumin today. ivc completely flat on bedside echo. LVEF hyperdynamic. no pericardial effusion. spoken with gen surg. plan to go back early to eval for worsening necrosis. fio2 also up to 100% and peep 10- hypoxic, likely early ARDS. 12/19: clinically doing better. still in shock on vasopressors, but requirements are lower and lactate cleared. Cr slowly uptrending. SVV still 19% today and appears to be volume responsive. gen surgery ordered 2 units prbc for falling hgb in the setting of blood loss with surgical intervention yesterday. fio2 improving. glycemic control also improving. 12/20: Markedly impaired oxygenation persists. Still requiring elevated end expiratory pressure. Nutritional support continues but she remains catabolic. It will be difficult to keep up with her nutritional needs. 12/21: Continued severe sepsis requiring vasopressor support and mechanical ventilation. Oxygenation remains impaired and smoldering metabolic acidosis persists. Despite hemodynamic instability the patient's only hope for survival is with infection source control through further debridement. Clearly a greatly increased risk however for any procedure. 12/22: Persistent septic shock course requiring vasopressor support and regular debridement. Good antibiotic coverage but she continues to require adjustment of ventilator, hemodynamic support drugs, antibiotics, intravenous fluids. Her nutritional status was quite depleted on arrival and continues to deteriorate despite adjuvant nutrition. 12/23: Patient continues septic course. She has developed venous clot throughout her left internal jugular subclavian and axillary vein system. Not a candidate for full anticoagulation because of need for frequent surgical debridement. We will pull out the catheter today and placing In the right subclavian route. 12/24 remains critically ill and septic remains on Rj-Synephrine at 50 mcg/kg/ min. WBC count increasing 20 6K today. Antibiotics have been changed by ID. Diflucan added for Talia UTI. Plan for OR today per surgery 12/25: Went to OR yesterday, s/p Incision, drainage with excisional debridement of back, buttock, thigh, and VAC change. Main septic White count increasing 31, 000 today, remains on pressors vasopressin and Rj-Synephrine. 12/26: Remains critical remains on vasopressin to maintain blood pressure and map above 65, currently off Rj-Synephrine. Remains severely fluid overloaded approximately 20 kg up. Despite pressor use will start IV diuretics to achieve negative fluid balance 12/27: Intubated sedated but more awake follows some commands. Hemoglobin down to 6.4, 2 g dropped, receiving 2 units of PRBC. No obvious bleeding noted. Currently had been weaned off the pressors. Or planned for tomorrow again 12/28: OR today for wound VAC change and I&D, possible tracheostomy. Potassium is 2.6 getting replaced. Hemoglobin stable. Remains off pressors. Urine output almost 8 L with forced diuresis 12/29: Status post OR for wound VAC change in tracheostomy yesterday. Getting for his diuresis urine output more than 4 L in 24 hours. Remains intubated sedated intermittently follows commands. Plan for I&D wound VAC change again on Saturday 12/30: Remains intubated sedated more stable. Urine output remains excellent with diuresis. Plan for OR in a.m. for further I&D and VAC change 12/31: Patient remains intubated plan for OR today with Dr. Muir for further I&D and wound VAC change. Making urine more than 4 L in 24 hours with diuresis. Getting closer to admission weight. Potassium 3.3 getting replacement 01/01: Remains intubated sedated failing CPAP due to low tidal volumes. Status post OR yesterday for the I&D tomorrow planned by general surgery. Urine output 3 L in 24 hours 01/02: Potassium being replaced. Ready for OR today. Objective Vital Signs / I&O: Vital Signs 01/01/18 09:23 01/01/18 10:00 01/01/18 10:01 Temperature Pulse Rate 78 79 Respiratory Rate 16 16 16 Blood Pressure 101/53 L Pulse Oximetry 100 100 100 01/01/18 11:00 01/01/18 11:01 01/01/18 12:00 Temperature 97.6 F Pulse Rate 81 81 76 Respiratory Rate 16 16 16 Blood Pressure 128/60 Pulse Oximetry 100 100 100 01/01/18 12:01 01/01/18 12:09 01/01/18 13:00 Temperature Pulse Rate 76 80 Respiratory Rate 16 17 16 Blood Pressure 124/62 Pulse Oximetry 100 100 100 01/01/18 13:01 01/01/18 14:00 01/01/18 14:01 Temperature Pulse Rate 79 99 H 100 H Respiratory Rate 13 12 10 L Blood Pressure 130/61 140/65 Pulse Oximetry 100 100 100 01/01/18 15:00 01/01/18 15:01 01/01/18 16:00 Temperature 99.2 F Pulse Rate 94 H 94 H 102 H Respiratory Rate 13 10 L 22 Blood Pressure 146/66 H Pulse Oximetry 100 100 100 01/01/18 16:01 01/01/18 16:04 01/01/18 17:00 Temperature Pulse Rate 98 H 99 H Respiratory Rate 15 11 L 7 L Blood Pressure 159/72 H Pulse Oximetry 100 100 100 01/01/18 17:01 01/01/18 17:04 01/01/18 18:00 Temperature Pulse Rate 105 H 100 H 89 Respiratory Rate 14 13 9 L Blood Pressure 188/74 H 159/71 H Pulse Oximetry 100 100 100 01/01/18 18:01 01/01/18 19:00 01/01/18 19:01 Temperature Pulse Rate 86 90 93 H Respiratory Rate 16 19 15 Blood Pressure 148/70 H 157/73 H Pulse Oximetry 100 100 100 01/01/18 20:00 01/01/18 20:01 01/01/18 20:10 Temperature 99.7 F H Pulse Rate 78 81 Respiratory Rate 17 16 17 Blood Pressure 158/70 H Pulse Oximetry 100 100 01/01/18 21:00 01/01/18 21:01 01/01/18 22:00 Temperature Pulse Rate 81 79 79 Respiratory Rate 9 L 5 L 16 Blood Pressure 149/73 H Pulse Oximetry 100 100 100 01/01/18 22:01 01/01/18 23:00 01/01/18 23:01 Temperature Pulse Rate 78 87 96 H Respiratory Rate 5 L 16 17 Blood Pressure 155/69 H Pulse Oximetry 99 100 100 01/02/18 00:00 01/02/18 00:01 01/02/18 00:43 Temperature 99.5 F Pulse Rate 77 77 Respiratory Rate 16 14 20 Blood Pressure 129/60 Pulse Oximetry 100 100 100 01/02/18 01:00 01/02/18 01:01 01/02/18 02:00 Temperature Pulse Rate 93 H 91 H 83 Respiratory Rate 15 16 16 Blood Pressure 152/68 H Pulse Oximetry 100 100 100 01/02/18 02:01 01/02/18 03:00 01/02/18 03:01 Temperature Pulse Rate 83 85 88 Respiratory Rate 16 15 16 Blood Pressure 157/70 H 176/73 H Pulse Oximetry 100 100 100 01/02/18 04:00 01/02/18 04:01 01/02/18 04:52 Temperature 100.1 F H Pulse Rate 79 78 Respiratory Rate 18 16 16 Blood Pressure 160/70 H Pulse Oximetry 100 100 100 Intake & Output 01/01/18 01/02/18 01/02/18 18:59 06:59 18:59 Intake Total 1546 / 1546 1757 / 1757 100 / 100 Output Total 2400 / 2400 2100 / 2100 Balance -854 / -854 -343 / -343 100 / 100 Weight 75.6 kg Intake: IV 1150 / 1150 1352 / 1352 100 / 100 D5W/LR Inj 1,000 ML @ 40 mls/hr 500 / 500 IV.CONT .Q24H [facility] Rx#:[id number] Diprivan 1000 mg/100 ml Inj 1, 100 / 100 152 / 152 000 mg In 100 ml @ 5 MCG/KG/MIN 1.837 mls/hr IV.CONT TITRATE PRN Rx#:[id number] Flexbumin 25% Inj 100 ML @ 60 100 / 100 100 / 100 mls/hr IV.SIG Q12H [facility] Rx#: [id number] Diflucan 400 mg Premix Bag 200 200 / 200 ML @ 100 mls/hr IV.SIG Q24H [facility] Rx#:[id number] Zosyn 4.5 GM Premix 4.5 gm In 300 / 300 100 / 100 100 / 100 100 ml @ 200 mls/hr IV.SIG Q6H [facility] Rx#:[id number] KCl 40 mEq Premix Inj 40 meq In 200 / 200 100 ml @ 25 mls/hr IV.SIG Q2H PRN Rx#:[id number] fentaNYL 10 mcg/mL Premix Drip 250 / 250 500 / 500 2,500 mcg In 250 ml @ 50 MCG/HR 5 mls/hr IV.SIG TITRATE PRN Rx #:[id number] Oral 0 / 0 Tube Feeding 396 / 396 285 / 285 Tube Irrigant 120 / 120 Output: Stool 1000 / 1000 100 / 100 Urine Amount (Catheter) 1200 / 1200 1850 / 1850 1 1200 / 1200 1850 / 1850 Wound Vac Amount 200 / 200 150 / 150 Posterior Sacrum 200 / 200 150 / 150 Other: Mode Setting Posterior Sacrum Continuous Continuous Date of Last Bowel Movement 01/01/18 01/02/18 Result Diagrams: 01/02/18 05:40 01/02/18 05:40 Objective Remarks: General: Ill-appearing middle-aged woman, intubated and lightly sedated. Head: Atraumatic, edentulous Neck: Supple, new trach site clean, dry. Lungs: equal chest rise. Scattered rhonchi but acceptable air movement. peep 8. Heart: Regular rate rate and regular rhythm. no JVD. Abdomen: Soft, no guarding, no peritoneal irritation. No guarding. Back: Wound VAC in place over lower lumbar region there is a moderate erythema to the skin over the pelvis and buttocks. Extremities: Warm, adequately perfused, status post below-knee amputation right side, necrotic ulceration over several toes left foot. Generalized edema involving the left arm. Neurological: Intubated and sedated, moves 4 limbs to stimulation. Pupils responsive. Follows commands x4 when sedation is lightened Assessment and Plan - Problem List (1) Septic shock with acute organ dysfunction due to anaerobic bacteria Code(s): A41.4 - Sepsis due to anaerobes; R65.21 - Severe sepsis with septic shock Status: Acute (2) Acute respiratory failure Code(s): J96.00 - Acute respiratory failure, unspecified whether with hypoxia or hypercapnia Status: Acute (3) Necrotizing fasciitis Code(s): M72.6 - Necrotizing fasciitis Status: Acute (4) Type 2 diabetes mellitus with hyperosmolar nonketotic hyperglycemia Code(s): E11.01 - Type 2 diabetes mellitus with hyperosmolarity with coma Status: Acute (5) MARIO (acute kidney injury) Code(s): N17.9 - Acute kidney failure, unspecified Status: Acute (6) Lactic acidosis Code(s): E87.2 - Acidosis Status: Acute - Assessment and Plan Plan: Assessment: 52yF with large necrotizing soft tissue infection of the lower back and sacrum complicated by septic shock and multiorgan dysfunction. OR 01/02 for further I&D, wound VAC change. Plan: Neurological Acute metabolic encephalopathy -Sedation with propofol, Analgesia with fentanyl -Encephalopathy largely due to sepsis improving, daily sedation location -RASS goal -1. Following commands x4 Cardiovascular Septic Shock- improving Myocardial dysfunction secondary to septic shock Fluid overload - Currently remains off all pressors - Received 2 units PRBC 12/27/2017 for hemoglobin of 6.4. Currently hemoglobin stable - IV Lasix due to fluid overload 20 mg every 12 with excellent response, getting closer to admission weight - Continue potassium replacement. Follow acid-base balance closely Respiratory Acute hypoxic and hypercarbic respiratory failure- persistent - Intubation and mechanical ventilation, Bronchodilators. - HOB elevated, vent bundle. wean fio2 for goal spo2 > 90% - CPAP trial daily, failed today due to low tidal volumes - s/p Trach in OR 12/28/17. Endocrinology Diabetes Severe hypoglycemia - Med scale SSI. - Follow potassium and magnesium closely Hematology/Infectious Disease Septic Shock Necrotizing soft tissue infection - Follow white count and platelet count closely. - Continue daptomycin and Zosyn. Diflucan for fungal coverage. - OR per general surgery, s/p I&D and wound VAC change on 12/31/2017, next planned OR 01/02/18 GI Acute protein calorie malnutrition- severe - prealbumin 5 on 12/18. severely malnourished. - daily bmp, mg, phos - Tube feeds infusing Acute kidney injury - Tristan required for hourly urine output and to protect perineal region - High risk for further deterioration in renal function - IV Lasix as above HEME Left upper extremity DVT - DVT left internal jugular, subclavian, axillary and distal arm veins. - Cannot anticoagulate secondary to blood loss anemia requiring blood transfusion, frequent surgeries Prophylaxis - Pepcid for GI ulcer prophylaxis - SCDs for DVT prophylaxis - Hold chemical DVT prophylaxis until ongoing surgical decisions regarding further debridement are made Lines: Left subclavian central venous line placed 12/15, discontinued 12/23. Right subclavian central venous line placed 12/23 Overall impression: This woman is critically ill and in septic shock with necrotizing fasciitis emanating from a deep chronic sacral decubitus ulcer. Peripheral perfusion and urine output is acceptable. Still requiring multiple or trips for I&D and VAC changes. Family request continued aggressive care. Ready for OR today.
[2018-01-02] MEDS: Dextrose 5%/Lactated Ringer's 1,000 ML IV.CONT SCH (10:54)
[2018-01-02] MEDS ORDERED: fentaNYL Citrate Inj 100 MCG/2 ML Ampul ONE (14:31)
[2018-01-03] MEDS: Insulin NovoLIN Regular Correctional Sugar Inj SQ SCH ×7 (00:46→23:55)
[2018-01-03] MEDS: Piperacil/Tazo 4.5 GM Premix 4.5 GM/100 ML BAG IV.SIG SCH ×4 (00:48→18:49)
[2018-01-03] MEDS: Dextrose 5%/Lactated Ringer's 1,000 ML IV.CONT SCH ×2 (00:49→12:55)
[2018-01-03] MEDS: Albumin Human 25% Inj 100 ML IV.SIG SCH ×2 (01:28→14:15)
[2018-01-03] MEDS: Propofol 1000 mg/100 ml Inj 1,000 MG/100 ML BOTTLE IV.CONT PRN (03:38)
[2018-01-03] MEDS: Oral Hygiene Kit OROPHARYNG SCH ×4 (03:39→23:55)
[2018-01-03 04:39] LABS: Calcium 8.1 mg/dL (8.5-10.1); Carbon Dioxide 29.8 meq/L (21.0-32.0); Potassium 3.3 meq/L (3.5-5.1)
[2018-01-03] MEDS: Chlorhexidine 0.12% Oral Kit 15 ML UDC OROPHARYNG SCH ×2 (08:37→21:13)
[2018-01-03] MEDS: Enoxaparin Inj 30 MG/0.3 ML Syringe SQ SCH (09:55)
[2018-01-03] MEDS: Famotidine PF Inj 20 MG/2 ML Vial IV.PUSH SCH ×2 (09:55→21:13)
[2018-01-03] MEDS: Senna/Docusate Sodium 8.6/50 MG Tablet PO SCH ×2 (09:55→21:14)
[2018-01-03] MEDS: Potassium Bicarbonate 25 MEQ Effervescent Tablet NG/OG SCH ×2 (09:55→21:13)
[2018-01-03] MEDS: fentaNYL 10 mcg/mL Premix Drip 2,500 MCG/250 ML BAG IV.SIG PRN ×2 (10:34→19:05)
--- NOTE | 2018-01-03 10:59 | P.PNGS ---
Subjective Interval history: Eyes closed No acute events overnight Physical Exam Vital signs: Vital Signs 01/02/18 11:00 01/02/18 11:01 01/02/18 12:00 Temperature 99.1 F Pulse Rate 83 88 73 Respiratory Rate 9 L 15 10 L Blood Pressure 154/66 H Pulse Oximetry 100 100 100 01/02/18 12:01 01/02/18 13:00 01/02/18 13:01 Temperature Pulse Rate 71 67 68 Respiratory Rate 5 L 8 L 8 L Blood Pressure 123/63 127/62 Pulse Oximetry 100 100 100 01/02/18 13:14 01/02/18 14:12 01/02/18 15:00 Temperature Pulse Rate 77 72 Respiratory Rate 23 25 H Blood Pressure Pulse Oximetry 100 100 100 01/02/18 15:12 01/02/18 16:00 01/02/18 17:00 Temperature 97.6 F Pulse Rate 70 79 69 Respiratory Rate 31 H 49 H 71 H Blood Pressure 132/70 Pulse Oximetry 100 100 100 01/02/18 17:05 01/02/18 17:17 01/02/18 18:00 Temperature Pulse Rate 76 76 Respiratory Rate 17 83 H 16 Blood Pressure 170/83 H 145/73 H Pulse Oximetry 99 100 100 01/02/18 18:43 01/02/18 19:00 01/02/18 19:43 Temperature Pulse Rate 87 Respiratory Rate 17 Blood Pressure 128/78 Pulse Oximetry 100 100 100 01/02/18 20:00 01/02/18 20:43 01/02/18 21:00 Temperature 98.2 F Pulse Rate 84 85 85 Respiratory Rate 17 17 17 Blood Pressure 125/69 Pulse Oximetry 100 100 100 01/02/18 21:43 01/02/18 22:00 01/02/18 22:43 Temperature Pulse Rate 81 81 80 Respiratory Rate 17 16 17 Blood Pressure 131/71 141/73 H Pulse Oximetry 100 100 100 01/02/18 23:00 01/02/18 23:18 01/02/18 23:43 Temperature Pulse Rate 80 78 Respiratory Rate 17 17 16 Blood Pressure 124/68 Pulse Oximetry 100 100 100 01/03/18 00:00 01/03/18 00:43 01/03/18 01:00 Temperature 98.4 F Pulse Rate 77 77 87 Respiratory Rate 17 18 16 Blood Pressure 122/73 Pulse Oximetry 100 100 100 01/03/18 01:43 01/03/18 02:00 01/03/18 02:43 Temperature Pulse Rate 75 77 88 Respiratory Rate 16 16 17 Blood Pressure 155/80 H 162/79 H Pulse Oximetry 100 100 100 01/03/18 03:00 01/03/18 03:43 01/03/18 03:50 Temperature Pulse Rate 92 H 69 Respiratory Rate 19 16 16 Blood Pressure 137/75 Pulse Oximetry 100 100 100 01/03/18 04:00 01/03/18 04:43 01/03/18 09:03 Temperature 98.9 F Pulse Rate 67 82 Respiratory Rate 16 16 13 Blood Pressure 149/82 H Pulse Oximetry 100 100 100 Intake & Output 01/02/18 01/03/18 01/03/18 18:59 06:59 18:59 Intake Total 1400 / 1400 1802 / 1802 189 / 189 Output Total 2950 / 2950 1575 / 1575 Balance -1550 / -1550 227 / 227 189 / 189 Weight 74.3 kg Intake: IV 1050 / 1050 1802 / 1802 189 / 189 D5W/LR Inj 1,000 ML @ 40 mls/hr 1000 / 1000 IV.CONT .Q24H RICARDO Rx#:[id number] Diprivan 1000 mg/100 ml Inj 1, 100 / 100 152 / 152 000 mg In 100 ml @ 5 MCG/KG/MIN 1.837 mls/hr IV.CONT TITRATE PRN Rx#:[id number] Flexbumin 25% Inj 100 ML @ 60 100 / 100 100 / 100 mls/hr IV.SIG Q12H RICARDO Rx#: [id number] Diflucan 400 mg Premix Bag 200 200 / 200 ML @ 100 mls/hr IV.SIG Q24H R[facility]ARDO Rx#:[id number] Zosyn 4.5 GM Premix 4.5 gm In 200 / 200 300 / 300 100 ml @ 200 mls/hr IV.SIG Q6H R[facility]ARDO Rx#:[id number] KCl 40 mEq Premix Inj 40 meq In 200 / 200 100 ml @ 25 mls/hr IV.SIG Q2H PRN Rx#:[id number] fentaNYL 10 mcg/mL Premix Drip 250 / 250 250 / 250 189 / 189 2,500 mcg In 250 ml @ 50 MCG/HR 5 mls/hr IV.SIG TITRATE PRN Rx #:[id number] Anesthesia Amount 350 / 350 Output: Stool 700 / 700 Estimated Blood Loss 25 / 25 Urine Amount (Catheter) 2099 1300 / 1300 1 2099 1300 / 1300 Wound Vac Amount 125 / 125 275 / 275 Posterior Sacrum 125 / 125 275 / 275 Other: Mode Setting Posterior Sacrum Continuous Continuous Date of Last Bowel Movement 01/02/18 01/02/18 Narrative: Eyes closed; resting comfortably Abd: soft Wound Vac in place with good seal - Urinary Catheter Management 1 Cath placed during this visit: yes Reason for continuing: Acute urinary retention Insertion date: 12/15/17 Results - Labs 01/02/18 05:40 01/03/18 12:24 Laboratory Results - last 24 hr 01/02/18 01/02/18 01/02/18 12:23 17:20 20:24 Sodium Potassium Chloride Carbon Dioxide Anion Gap BUN Creatinine Estimated GFR POC Glucose 177 H 177 H 167 H Random Glucose Calcium 01/02/18 01/02/18 01/03/18 20:28 23:55 04:05 Sodium 142 Potassium 3.5 3.3 L Chloride 102 Carbon Dioxide 29.8 Anion Gap 10 BUN 13 Creatinine 0.96 Estimated GFR 61 L POC Glucose 174 H Random Glucose 159 H Calcium 8.1 L 01/03/18 08:41 Sodium Potassium Chloride Carbon Dioxide Anion Gap BUN Creatinine Estimated GFR POC Glucose 186 H Random Glucose Calcium - Imaging Imaging: ITS Impressions Femur X-Ray 12/15/17 07:05 CONCLUSION: No fracture is identified. There is extensive soft tissue air in the right gluteal region and extending into the proximal and mid posterior thigh. The soft tissue air suggests an open wound. Pelvis X-Ray 12/15/17 07:05 CONCLUSION: No fracture is identified. However, there is extensive soft tissue air in the left gluteal region and left proximal thigh. Pelvis CT 12/15/17 07:52 CONCLUSION: 1. No fracture is identified. 2. Extensive subcutaneous and soft tissue gas bilaterally, left greater than right. It is most severe in the left gluteal region and extends into the proximal posterior thigh. The soft tissue air dissects through the gluteal musculature. There is adjacent subcutaneous edema. Foot X-Ray 12/18/17 00:00 CONCLUSION: Remote small avulsion fracture at the fifth toe. No acute bony abnormality. Venous Doppler Study 12/22/17 00:00 CONCLUSION: Extensive deep vein thrombosis of the left upper extremity. Chest X-Ray 12/31/17 06:00 CONCLUSION: 1. Tracheostomy tube is now seen. Endotracheal tube is no longer seen. 2. Bilateral pulmonary opacity is again seen with interval increase in the right lower lung zone opacity. No change in the left. Assessment and Plan - Assessment (1) Necrotizing fasciitis of pelvic region and thigh Code(s): M72.6 - Necrotizing fasciitis Status: Acute Plan: 52yo female with multiple medical comorbidities, s/p debridement of nec fasc -Remains critically ill -Plan for vac change tomorrow in the OR -Obtain consents -Continue TF for today; NPO after MN -ID following
--- NOTE | 2018-01-03 11:50 | P.PNID ---
Subjective Remarks: Patient opens eyes. Still no other meaningful responses. Sedated. On the ventilator. Afebrile This is a 52-year-old white female who was brought to the emergency department after she fell at home. The patient was noted to have profound weakness. She was evaluated in the emergency department and at that time had normal temperature and white blood cell count was also normal. She underwent CT scan of the abdomen and pelvis that showed extensive subcutaneous and soft tissue gas bilaterally with the left greater than right, most severe in the left gluteal region and extending into the proximal posterior thigh soft tissue and air-fluid dissecting through the gluteal musculature. The patient has a history of diabetes mellitus. Allergies/Adverse Reactions: Allergies No Known Allergies Allergy (Verified 12/15/17 07:54) Objective Vital Signs 01/02/18 12:00 01/02/18 12:01 01/02/18 13:00 Temperature 99.1 F Pulse Rate 73 71 67 Respiratory Rate 10 L 5 L 8 L Blood Pressure 123/63 Pulse Oximetry 100 100 100 01/02/18 13:01 01/02/18 13:14 01/02/18 14:12 Temperature Pulse Rate 68 77 Respiratory Rate 8 L 23 Blood Pressure 127/62 Pulse Oximetry 100 100 100 01/02/18 15:00 01/02/18 15:12 01/02/18 16:00 Temperature 97.6 F Pulse Rate 72 70 79 Respiratory Rate 25 H 31 H 49 H Blood Pressure 132/70 Pulse Oximetry 100 100 100 01/02/18 17:00 01/02/18 17:05 01/02/18 17:17 Temperature Pulse Rate 69 76 Respiratory Rate 71 H 17 83 H Blood Pressure 170/83 H Pulse Oximetry 100 99 100 01/02/18 18:00 01/02/18 18:43 01/02/18 19:00 Temperature Pulse Rate 76 Respiratory Rate 16 Blood Pressure 145/73 H Pulse Oximetry 100 100 100 01/02/18 19:43 01/02/18 20:00 01/02/18 20:43 Temperature 98.2 F Pulse Rate 87 84 85 Respiratory Rate 17 17 17 Blood Pressure 128/78 125/69 Pulse Oximetry 100 100 100 01/02/18 21:00 01/02/18 21:43 01/02/18 22:00 Temperature Pulse Rate 85 81 81 Respiratory Rate 17 17 16 Blood Pressure 131/71 Pulse Oximetry 100 100 100 01/02/18 22:43 01/02/18 23:00 01/02/18 23:18 Temperature Pulse Rate 80 80 Respiratory Rate 17 17 17 Blood Pressure 141/73 H Pulse Oximetry 100 100 100 01/02/18 23:43 01/03/18 00:00 01/03/18 00:43 Temperature 98.4 F Pulse Rate 78 77 77 Respiratory Rate 16 17 18 Blood Pressure 124/68 122/73 Pulse Oximetry 100 100 100 01/03/18 01:00 01/03/18 01:43 01/03/18 02:00 Temperature Pulse Rate 87 75 77 Respiratory Rate 16 16 16 Blood Pressure 155/80 H Pulse Oximetry 100 100 100 01/03/18 02:43 01/03/18 03:00 01/03/18 03:43 Temperature Pulse Rate 88 92 H 69 Respiratory Rate 17 19 16 Blood Pressure 162/79 H 137/75 Pulse Oximetry 100 100 100 01/03/18 03:50 01/03/18 04:00 01/03/18 04:43 Temperature 98.9 F Pulse Rate 67 82 Respiratory Rate 16 16 16 Blood Pressure 149/82 H Pulse Oximetry 100 100 100 01/03/18 09:03 Temperature Pulse Rate Respiratory Rate 13 Blood Pressure Pulse Oximetry 100 Intake & Output 01/02/18 01/03/18 01/03/18 18:59 06:59 18:59 Intake Total 1400 / 1400 1802 / 1802 189 / 189 Output Total 2950 / 2950 1575 / 1575 Balance -1550 / -1550 227 / 227 189 / 189 Weight 74.3 kg Intake: IV 1050 / 1050 1802 / 1802 189 / 189 D5W/LR Inj 1,000 ML @ 40 mls/hr 1000 / 1000 IV.CONT .Q24H [facility] Rx#:[id number] Diprivan 1000 mg/100 ml Inj 1, 100 / 100 152 / 152 000 mg In 100 ml @ 5 MCG/KG/MIN 1.837 mls/hr IV.CONT TITRATE PRN Rx#:[id number] Flexbumin 25% Inj 100 ML @ 60 100 / 100 100 / 100 mls/hr IV.SIG Q12H [facility] Rx#: [id number] Diflucan 400 mg Premix Bag 200 200 / 200 ML @ 100 mls/hr IV.SIG Q24H [facility]O Rx#:[id number] Zosyn 4.5 GM Premix 4.5 gm In 200 / 200 300 / 300 100 ml @ 200 mls/hr IV.SIG Q6H [facility]O Rx#:[id number] KCl 40 mEq Premix Inj 40 meq In 200 / 200 100 ml @ 25 mls/hr IV.SIG Q2H PRN Rx#:[id number] fentaNYL 10 mcg/mL Premix Drip 250 / 250 250 / 250 189 / 189 2,500 mcg In 250 ml @ 50 MCG/HR 5 mls/hr IV.SIG TITRATE PRN Rx #:[id number] Anesthesia Amount 350 / 350 Output: Stool 700 / 700 Estimated Blood Loss 25 / 25 Urine Amount (Catheter) 2099 / 2099 1300 / 1300 1 2099 / 2099 1300 / 1300 Wound Vac Amount 125 / 125 275 / 275 Posterior Sacrum 125 / 125 275 / 275 Other: Mode Setting Posterior Sacrum Continuous Continuous Date of Last Bowel Movement 01/02/18 01/02/18 12/24/17 12:20 Tissue - Buttock Acid Fast Bacilli Smear - Final No acid fast bacilli seen 12/24/17 12:20 Tissue - Buttock Mycobacterial Culture - Preliminary No growth in 1 week Lab - Hematology Results 01/02/18 05:40 WBC 9.3 RBC 2.72 L Hgb 8.3 L Hct 25.0 L MCV 91.9 MCH 30.4 MCHC 33.1 RDW 16.5 Plt Count 165 MPV 9.3 Lab - Chemistry Results 01/01/18 01/01/18 01/01/18 12:17 16:29 19:41 Sodium Potassium Chloride Carbon Dioxide Anion Gap BUN Creatinine Estimated GFR POC Glucose 227 H 163 H 179 H Random Glucose Calcium Total Bilirubin AST ALT Alkaline Phosphatase Total Protein Albumin 01/01/18 01/01/18 01/02/18 21:50 22:58 03:46 Sodium Potassium 3.8 Chloride Carbon Dioxide Anion Gap BUN Creatinine Estimated GFR POC Glucose 159 H 231 H Random Glucose Calcium Total Bilirubin AST ALT Alkaline Phosphatase Total Protein Albumin 01/02/18 01/02/18 01/02/18 05:40 07:30 10:00 Sodium 143 Potassium 3.2 L Chloride 104 Carbon Dioxide 30.4 Anion Gap 9 BUN 16 Creatinine 0.93 Estimated GFR 63 L POC Glucose 236 H 192 H Random Glucose 192 H Calcium 7.9 L Total Bilirubin 0.7 AST 7 L ALT 7 L Alkaline Phosphatase 109 Total Protein 7.1 Albumin 3.2 L 01/02/18 01/02/18 01/02/18 12:23 17:20 20:24 Sodium Potassium Chloride Carbon Dioxide Anion Gap BUN Creatinine Estimated GFR POC Glucose 177 H 177 H 167 H Random Glucose Calcium Total Bilirubin AST ALT Alkaline Phosphatase Total Protein Albumin 01/02/18 01/02/18 01/03/18 20:28 23:55 04:05 Sodium 142 Potassium 3.5 3.3 L Chloride 102 Carbon Dioxide 29.8 Anion Gap 10 BUN 13 Creatinine 0.96 Estimated GFR 61 L POC Glucose 174 H Random Glucose 159 H Calcium 8.1 L Total Bilirubin AST ALT Alkaline Phosphatase Total Protein Albumin 01/03/18 08:41 Sodium Potassium Chloride Carbon Dioxide Anion Gap BUN Creatinine Estimated GFR POC Glucose 186 H Random Glucose Calcium Total Bilirubin AST ALT Alkaline Phosphatase Total Protein Albumin Imaging: ITS Impressions Femur X-Ray 12/15/17 07:05 CONCLUSION: No fracture is identified. There is extensive soft tissue air in the right gluteal region and extending into the proximal and mid posterior thigh. The soft tissue air suggests an open wound. Pelvis X-Ray 12/15/17 07:05 CONCLUSION: No fracture is identified. However, there is extensive soft tissue air in the left gluteal region and left proximal thigh. Pelvis CT 12/15/17 07:52 CONCLUSION: 1. No fracture is identified. 2. Extensive subcutaneous and soft tissue gas bilaterally, left greater than right. It is most severe in the left gluteal region and extends into the proximal posterior thigh. The soft tissue air dissects through the gluteal musculature. There is adjacent subcutaneous edema. Foot X-Ray 12/18/17 00:00 CONCLUSION: Remote small avulsion fracture at the fifth toe. No acute bony abnormality. Venous Doppler Study 12/22/17 00:00 CONCLUSION: Extensive deep vein thrombosis of the left upper extremity. Chest X-Ray 12/31/17 06:00 CONCLUSION: 1. Tracheostomy tube is now seen. Endotracheal tube is no longer seen. 2. Bilateral pulmonary opacity is again seen with interval increase in the right lower lung zone opacity. No change in the left. Physical Exam: PHYSICAL EXAMINATION: GENERAL: Sedated. HEENT: Unable to assess fully. Pale sclera. Oropharynx intubated. NECK: Supple. No adenopathy or swelling. LUNGS: Bibasilar rhonchi. HEART: irregular S1 and S2. 1-2/6 systolic murmur at the left sternal border. ABDOMEN: Bowel sounds present, soft. BACK: Surgical wound post debridement across the lower back, buttock and thigh. Vac in place. EXTREMITIES: No clubbing, no cyanosis or edema. abrasion with dry necrotic changes at left dorsal toes 2-4. SKIN: No diffuse rash. Scattered ecchymotic lesions. NEUROLOGIC: Unable to assess. PSYCHIATRIC: Unable to assess. Assessment and Plan - Plan IMPRESSION: 1. Necrotizing fasciitis of the back, buttock and thigh. 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 Still undergoing periodic debridement wit Vac changes. 2. Septic shock. Responded to broad-spectrum antibiotics. 3. Acute respiratory failure. 4. Chronic kidney disease. 5. Leukocytosis. Improved. RECOMMENDATIONS: 1. Continue Diflucan 2. Continue Zosyn 3. Monitor clinical status
--- NOTE | 2018-01-03 16:19 | P.PNCC ---
Subjective Subjective Remarks/Hospital Course: This 52-year-old woman with long-standing uncontrolled diabetes mellitus and severe peripheral arterial disease related to a long-term heavy smoking history was found down at her home and initial blood glucose was 610. Her lower back and buttocks was exquisitely tender and a mid line stage IV sacral decubitus was oozing purulent material and inflamed and the surrounding soft tissue. White count was not elevated but 90% neutrophils. Temperature 97 degrees. Moderately encephalopathic though conversant. X-rays revealed no fractures in the pelvis but CAT scan demonstrated extensive subcutaneous air emanating in both directions left and right from the mid sacral region. This is clearly necrotizing fasciitis or some other gas-forming infection and the woman is critically ill. She received vancomycin, Zosyn, and clindamycin antibiotic therapy as quickly as possible and was transferred to the ICU for ongoing resuscitation. Because of worsening hemodynamic stability she required intubation and mechanical ventilation followed by central line placement on arrival to the ICU. Insulin drip infusion was started in the emergency department and glucose had declined into the low 400s. She was not in ketoacidosis but lactic acid was elevated at 3.1. General surgery and orthopedic surgery were consulted for recommendations and it was felt that this woman was too unstable to tolerate an operative procedure immediately. We continue her ongoing resuscitation and trial in the ICU at this stage. 12/16: Following aggressive resuscitation yesterday for the treatment of severe hyperglycemia, septic shock, respiratory failure, metabolic acidosis, acute kidney injury, the patient went to the operating room with an extensive wide debridement bilateral gluteal and left thigh soft tissue and muscle. Primary antibiotic coverage at this point is vancomycin, cefepime, clindamycin. The patient started to make urine late yesterday afternoon and has continued to acceptable output since. Lactic acidosis is 2.0 this morning but metabolic acidosis persists despite bicarb drip. She remains on vasopressor support and hemodynamically unstable. 12/17: s/p debridement of large nec fasc wound. remains in shock today. also very hypoglycemic requiring multiple D50 amps overnight. 12/18: back in worsening shock. vasopressor support higher. required 2L crystalloid overnight and additional 1L and 500cc albumin today. ivc completely flat on bedside echo. LVEF hyperdynamic. no pericardial effusion. spoken with gen surg. plan to go back early to eval for worsening necrosis. fio2 also up to 100% and peep 10- hypoxic, likely early ARDS. 12/19: clinically doing better. still in shock on vasopressors, but requirements are lower and lactate cleared. Cr slowly uptrending. SVV still 19% today and appears to be volume responsive. gen surgery ordered 2 units prbc for falling hgb in the setting of blood loss with surgical intervention yesterday. fio2 improving. glycemic control also improving. 12/20: Markedly impaired oxygenation persists. Still requiring elevated end expiratory pressure. Nutritional support continues but she remains catabolic. It will be difficult to keep up with her nutritional needs. 12/21: Continued severe sepsis requiring vasopressor support and mechanical ventilation. Oxygenation remains impaired and smoldering metabolic acidosis persists. Despite hemodynamic instability the patient's only hope for survival is with infection source control through further debridement. Clearly a greatly increased risk however for any procedure. 12/22: Persistent septic shock course requiring vasopressor support and regular debridement. Good antibiotic coverage but she continues to require adjustment of ventilator, hemodynamic support drugs, antibiotics, intravenous fluids. Her nutritional status was quite depleted on arrival and continues to deteriorate despite adjuvant nutrition. 12/23: Patient continues septic course. She has developed venous clot throughout her left internal jugular subclavian and axillary vein system. Not a candidate for full anticoagulation because of need for frequent surgical debridement. We will pull out the catheter today and placing In the right subclavian route. 12/24 remains critically ill and septic remains on Rj-Synephrine at 50 mcg/kg/ min. WBC count increasing 20 6K today. Antibiotics have been changed by ID. Diflucan added for Talia UTI. Plan for OR today per surgery 12/25: Went to OR yesterday, s/p Incision, drainage with excisional debridement of back, buttock, thigh, and VAC change. Main septic White count increasing 31, 000 today, remains on pressors vasopressin and Rj-Synephrine. 12/26: Remains critical remains on vasopressin to maintain blood pressure and map above 65, currently off Rj-Synephrine. Remains severely fluid overloaded approximately 20 kg up. Despite pressor use will start IV diuretics to achieve negative fluid balance 12/27: Intubated sedated but more awake follows some commands. Hemoglobin down to 6.4, 2 g dropped, receiving 2 units of PRBC. No obvious bleeding noted. Currently had been weaned off the pressors. Or planned for tomorrow again 12/28: OR today for wound VAC change and I&D, possible tracheostomy. Potassium is 2.6 getting replaced. Hemoglobin stable. Remains off pressors. Urine output almost 8 L with forced diuresis 12/29: Status post OR for wound VAC change in tracheostomy yesterday. Getting for his diuresis urine output more than 4 L in 24 hours. Remains intubated sedated intermittently follows commands. Plan for I&D wound VAC change again on Saturday 12/30: Remains intubated sedated more stable. Urine output remains excellent with diuresis. Plan for OR in a.m. for further I&D and VAC change 12/31: Patient remains intubated plan for OR today with Dr. Muir for further I&D and wound VAC change. Making urine more than 4 L in 24 hours with diuresis. Getting closer to admission weight. Potassium 3.3 getting replacement 01/01: Remains intubated sedated failing CPAP due to low tidal volumes. Status post OR yesterday for the I&D tomorrow planned by general surgery. Urine output 3 L in 24 hours 01/02: Potassium being replaced. Ready for OR today. Return from the OR with stable hemodynamics on mechanical ventilation. 01/03: Attempted spontaneous breathing trials today and converted to T piece. We will continue this method of weaning. Nutrition infusing and well- tolerated. Severity of wound will require a lengthy hospitalization. Objective Vital Signs / I&O: Vital Signs 01/02/18 17:00 01/02/18 17:05 01/02/18 17:17 Temperature Pulse Rate 69 76 Respiratory Rate 71 H 17 83 H Blood Pressure 170/83 H Pulse Oximetry 100 99 100 01/02/18 18:00 01/02/18 18:43 01/02/18 19:00 Temperature Pulse Rate 76 Respiratory Rate 16 Blood Pressure 145/73 H Pulse Oximetry 100 100 100 01/02/18 19:43 01/02/18 20:00 01/02/18 20:43 Temperature 98.2 F Pulse Rate 87 84 85 Respiratory Rate 17 17 17 Blood Pressure 128/78 125/69 Pulse Oximetry 100 100 100 01/02/18 21:00 01/02/18 21:43 01/02/18 22:00 Temperature Pulse Rate 85 81 81 Respiratory Rate 17 17 16 Blood Pressure 131/71 Pulse Oximetry 100 100 100 01/02/18 22:43 11/14/18 23:00 01/02/18 23:18 Temperature Pulse Rate 80 80 Respiratory Rate 17 17 17 Blood Pressure 141/73 H Pulse Oximetry 100 100 100 01/02/18 23:43 01/03/18 00:00 01/03/18 00:43 Temperature 98.4 F Pulse Rate 78 77 77 Respiratory Rate 16 17 18 Blood Pressure 124/68 122/73 Pulse Oximetry 100 100 100 01/03/18 01:00 01/03/18 01:43 01/03/18 02:00 Temperature Pulse Rate 87 75 77 Respiratory Rate 16 16 16 Blood Pressure 155/80 H Pulse Oximetry 100 100 100 01/03/18 02:43 01/03/18 03:00 01/03/18 03:43 Temperature Pulse Rate 88 92 H 69 Respiratory Rate 17 19 16 Blood Pressure 162/79 H 137/75 Pulse Oximetry 100 100 100 01/03/18 03:50 01/03/18 04:00 01/03/18 04:43 Temperature 98.9 F Pulse Rate 67 82 Respiratory Rate 16 16 16 Blood Pressure 149/82 H Pulse Oximetry 100 100 100 01/03/18 09:03 01/03/18 12:07 01/03/18 13:07 Temperature Pulse Rate Respiratory Rate 13 18 Blood Pressure Pulse Oximetry 100 100 100 Intake & Output 01/02/18 01/03/18 01/03/18 18:59 06:59 18:59 Intake Total 1400 / 1400 1802 / 1802 289 / 289 Output Total 2950 / 2950 1575 / 1575 Balance -1550 / -1550 227 / 227 289 / 289 Weight 74.3 kg Intake: IV 1050 / 1050 1802 / 1802 289 / 289 D5W/LR Inj 1,000 ML @ 40 mls/hr 1000 / 1000 IV.CONT .Q24H [facility] Rx#:[id number] Diprivan 1000 mg/100 ml Inj 1, 100 / 100 152 / 152 000 mg In 100 ml @ 5 MCG/KG/MIN 1.837 mls/hr IV.CONT TITRATE PRN Rx#:[id number] Flexbumin 25% Inj 100 ML @ 60 100 / 100 100 / 100 mls/hr IV.SIG Q12H [facility] Rx#: [id number] Diflucan 400 mg Premix Bag 200 200 / 200 ML @ 100 mls/hr IV.SIG Q24H [facility] Rx#:[id number] Zosyn 4.5 GM Premix 4.5 gm In 200 / 200 300 / 300 100 / 100 100 ml @ 200 mls/hr IV.SIG Q6H [facility] Rx#:[id number] KCl 40 mEq Premix Inj 40 meq In 200 / 200 100 ml @ 25 mls/hr IV.SIG Q2H [facility] Rx#:[id number] fentaNYL 10 mcg/mL Premix Drip 250 / 250 250 / 250 189 / 189 2,500 mcg In 250 ml @ 50 MCG/HR 5 mls/hr IV.SIG TITRATE PRN Rx #:[id number] Anesthesia Amount 350 / 350 Output: Stool 700 / 700 Estimated Blood Loss 25 / 25 Urine Amount (Catheter) 2099 / 2099 1300 / 1300 1 2099 / 2099 1300 / 1300 Wound Vac Amount 125 / 125 275 / 275 Posterior Sacrum 125 / 125 275 / 275 Other: Mode Setting Posterior Sacrum Continuous Continuous Date of Last Bowel Movement 01/02/18 01/02/18 Result Diagrams: 01/02/18 05:40 01/03/18 12:24 Objective Remarks: General: Ill-appearing middle-aged woman, intubated and sedated. Head: Atraumatic, edentulous Neck: Supple, trach site clean, dry. Lungs: Scattered rhonchi persist but acceptable air movement. Heart: Regular rate rate and regular rhythm. no JVD. Abdomen: Soft, no guarding, no peritoneal irritation. Back: Wound VAC in place over lower lumbar region. Extremities: Warm, well perfused, status post below-knee amputation right side, worsening necrotic ulceration over several toes left foot. Generalized edema involving the left arm. Neurological: Tracheostomy for mechanical ventilation and sedated, moves 4 limbs to stimulation. Pupils responsive. Follows commands x4 when sedation is lightened. Tracks with eyes. Assessment and Plan - Problem List (1) Septic shock with acute organ dysfunction due to anaerobic bacteria Code(s): A41.4 - Sepsis due to anaerobes; R65.21 - Severe sepsis with septic shock Status: Acute (2) Acute respiratory failure Code(s): J96.00 - Acute respiratory failure, unspecified whether with hypoxia or hypercapnia Status: Acute (3) Necrotizing fasciitis Code(s): M72.6 - Necrotizing fasciitis Status: Acute (4) Type 2 diabetes mellitus with hyperosmolar nonketotic hyperglycemia Code(s): E11.01 - Type 2 diabetes mellitus with hyperosmolarity with coma Status: Acute (5) MARIO (acute kidney injury) Code(s): N17.9 - Acute kidney failure, unspecified Status: Acute (6) Lactic acidosis Code(s): E87.2 - Acidosis Status: Acute - Assessment and Plan Plan: Assessment: 52yF with large necrotizing soft tissue infection of the lower back and sacrum complicated by septic shock and multiorgan dysfunction. OR 01/02, then for further I&D, wound VAC change. Plan: Neurological Acute metabolic encephalopathy -Sedation with propofol, Analgesia with fentanyl -Encephalopathy largely due to sepsis improving, daily sedation location -RASS goal -1. Following commands x4 Cardiovascular Septic Shock- improving Myocardial dysfunction secondary to septic shock Fluid overload - Currently remains off all pressors - Received 2 units PRBC 12/27/2017 for hemoglobin of 6.4. Currently hemoglobin stable - IV Lasix due to fluid overload 20 mg every 12 with excellent response, getting closer to admission weight - Continue potassium replacement. Follow acid-base balance closely Respiratory Acute hypoxic and hypercarbic respiratory failure- persistent - Intubation and mechanical ventilation, Bronchodilators. - HOB elevated, vent bundle. wean fio2 for goal spo2 > 90% - CPAP trial daily, failed today due to low tidal volumes - s/p Trach in OR 12/28/17. -T piece trials Endocrinology Diabetes Severe hypoglycemia - Med scale SSI. - Follow potassium and magnesium closely Hematology/Infectious Disease Septic Shock Necrotizing soft tissue infection - Follow white count and platelet count closely. - Continue daptomycin and Zosyn. Diflucan for fungal coverage. - OR per general surgery, s/p I&D and wound VAC change on 12/31/2017, 01/02/18 GI Acute protein calorie malnutrition- severe - prealbumin 5 on 12/18. severely malnourished. - daily bmp, mg, phos - Tube feeds infusing, tolerated -Follow prealbumin weekly Acute kidney injury - Tristan required for hourly urine output and to protect perineal region - High risk for further deterioration in renal function HEME Left upper extremity DVT - DVT left internal jugular, subclavian, axillary and distal arm veins. - Cannot anticoagulate secondary to blood loss anemia requiring blood transfusion, frequent surgeries Prophylaxis - Pepcid for GI ulcer prophylaxis - SCDs for DVT prophylaxis - Hold chemical DVT prophylaxis until ongoing surgical decisions regarding further debridement are made Lines: Left subclavian central venous line placed 12/15, discontinued 12/23. Right subclavian central venous line placed 12/23, change now Overall impression: This woman was critically ill and in septic shock with necrotizing fasciitis emanating from a deep chronic sacral decubitus ulcer. Peripheral perfusion and urine output remains acceptable. Still requiring multiple or trips for I&D and VAC changes. Family request continued aggressive care.
[2018-01-04] MEDS: Piperacil/Tazo 4.5 GM Premix 4.5 GM/100 ML BAG IV.SIG SCH ×2 (01:17→06:19)
[2018-01-04] MEDS: Albumin Human 25% Inj 100 ML IV.SIG SCH ×2 (02:36→13:30)
[2018-01-04] MEDS: Oral Hygiene Kit OROPHARYNG SCH ×2 (03:58→16:00)
[2018-01-04 04:35] LABS: Baso # (Auto) 0.1 th/mm3 (0.0-0.2); Baso % (Auto) 0.7 % (0.0-2.0); Eos # (Auto) 0.3 th/mm3 (0.0-0.4); Eos % (Auto) 3.4 % (0.0-4.0); Hematocrit 23.6 % (35.0-46.0); Hemoglobin 8.3 gm/dL (11.6-15.3); Lymph # (Auto) 2.4 th/mm3 (1.0-4.8); Lymph % (Auto) 24.4 % (9.0-44.0); Mean Corpuscular HGB Conc 35.1 % (32.0-36.0); Mean Corpuscular Hemoglobin 31.4 pg (27.0-34.0); Mean Corpuscular Volume 89.3 fL (80.0-100.0); Mean Platelet Volume 9.2 fL (7.0-11.0); Mono # (Auto) 0.7 th/mm3 (0.0-0.9); Mono % (Auto) 6.6 % (0.0-8.0); Neut # (Auto) 6.4 th/mm3 (1.8-7.7); Neut % (Auto) 64.9 % (16.0-70.0); Platelet Count 167 th/mm3 (150-450); Red Blood Count 2.65 mil/mm3 (4.00-5.30); Red Cell Distribution Width 16.1 % (11.6-17.2); White Blood Count 9.8 th/mm3 (4.0-11.0)
[2018-01-04 05:01] LABS: Calcium 8.5 mg/dL (8.5-10.1); Carbon Dioxide 33.3 meq/L (21.0-32.0); Potassium 3.3 meq/L (3.5-5.1)
[2018-01-04] MEDS: hydrALAZINE HCl Inj 20 MG/ML Vial IV.PUSH PRN ×2 (05:07→13:28)
[2018-01-04] MEDS: fentaNYL 10 mcg/mL Premix Drip 2,500 MCG/250 ML BAG IV.SIG PRN ×2 (05:11→13:30)
[2018-01-04] MEDS: Dextrose 5%/Lactated Ringer's 1,000 ML IV.CONT SCH ×2 (06:18→16:00)
[2018-01-04] MEDS: Insulin NovoLIN Regular Correctional Sugar Inj SQ SCH ×4 (06:18→21:51)
[2018-01-04] MEDS: Chlorhexidine 0.12% Oral Kit 15 ML UDC OROPHARYNG SCH ×2 (08:44→21:52)
[2018-01-04] MEDS: Famotidine PF Inj 20 MG/2 ML Vial IV.PUSH SCH ×2 (08:44→21:09)
[2018-01-04] MEDS: Potassium Chlor 20 mEq Premix 20 MEQ/100 ML PIGGYBACK IV.SIG PRN (08:45)
[2018-01-04] MEDS: Potassium Bicarbonate 25 MEQ Effervescent Tablet NG/OG SCH ×2 (10:06→21:08)
[2018-01-04] MEDS: Enoxaparin Inj 30 MG/0.3 ML Syringe SQ SCH (10:07)
[2018-01-04] MEDS: Senna/Docusate Sodium 8.6/50 MG Tablet PO SCH ×2 (10:08→21:09)
[2018-01-04] MEDS ORDERED: fentaNYL Citrate Inj 100 MCG/2 ML Ampul ONE (10:38)
[2018-01-04] MEDS ORDERED: Famotidine PF Inj 20 MG/2 ML Vial ONE (10:38)
[2018-01-04] MEDS ORDERED: Esmolol Bolus Inj 100 MG/10 ML Vial IV.PUSH ONE (11:44)
--- NOTE | 2018-01-04 12:06 | P.OP ---
- Preoperative Diagnosis (1) Necrotizing fasciitis of pelvic region and thigh - Postoperative Diagnosis (1) Necrotizing fasciitis of pelvic region and thigh Procedure: vac change with i and d Anesthesia: GETA Surgeon: Ventura Bazzi MD Estimated blood loss (mL): 5 Pathology: none sent Operation and Findings: deep pockets without abscess
--- NOTE | 2018-01-04 13:27 | P.PNID ---
Subjective Remarks: Patient is more alert. Appear to be following commands per RN. On T-piece. Just came back from wound vac change. Afebrile This is a 52-year-old white female who was brought to the emergency department after she fell at home. The patient was noted to have profound weakness. She was evaluated in the emergency department and at that time had normal temperature and white blood cell count was also normal. She underwent CT scan of the abdomen and pelvis that showed extensive subcutaneous and soft tissue gas bilaterally with the left greater than right, most severe in the left gluteal region and extending into the proximal posterior thigh soft tissue and air-fluid dissecting through the gluteal musculature. Allergies/Adverse Reactions: Allergies No Known Allergies Allergy (Verified 12/15/17 07:54) Objective Vital Signs 01/03/18 13:43 01/03/18 14:00 01/03/18 14:43 Temperature Pulse Rate 99 H 105 H 95 H Respiratory Rate 104 H 95 H 88 H Blood Pressure 148/80 H 139/73 Pulse Oximetry 100 100 100 01/03/18 15:00 01/03/18 15:43 01/03/18 16:00 Temperature 98.4 F Pulse Rate 99 H 97 H 104 H Respiratory Rate 91 H 86 H 60 H Blood Pressure 138/79 Pulse Oximetry 100 100 100 01/03/18 16:43 01/03/18 17:00 01/03/18 17:43 Temperature Pulse Rate 108 H 102 H 99 H Respiratory Rate 70 H 81 H Blood Pressure 179/97 H 137/68 Pulse Oximetry 100 100 100 01/03/18 18:00 01/03/18 18:43 01/03/18 19:00 Temperature Pulse Rate 90 87 89 Respiratory Rate Blood Pressure 153/81 H Pulse Oximetry 100 100 100 01/03/18 19:43 01/03/18 20:00 01/03/18 20:43 Temperature 98.5 F Pulse Rate 92 H 82 83 Respiratory Rate 12 Blood Pressure 172/82 H 172/82 H 175/80 H Pulse Oximetry 100 100 100 01/03/18 21:00 01/03/18 21:43 01/03/18 22:00 Temperature Pulse Rate 83 102 H 100 H Respiratory Rate Blood Pressure 179/84 H Pulse Oximetry 100 100 100 01/03/18 22:43 01/03/18 23:00 01/03/18 23:43 Temperature Pulse Rate 82 90 105 H Respiratory Rate 10 L 10 L 26 H Blood Pressure 136/84 197/96 H Pulse Oximetry 100 100 100 01/03/18 23:50 01/04/18 00:00 01/04/18 00:55 Temperature 98.1 F Pulse Rate 96 H 111 H 85 Respiratory Rate 15 22 17 Blood Pressure 172/82 H 172/82 H 194/88 H Pulse Oximetry 100 100 100 01/04/18 00:57 01/04/18 01:00 01/04/18 01:02 Temperature Pulse Rate 81 95 H 80 Respiratory Rate 13 17 23 Blood Pressure 196/86 H 188/78 H Pulse Oximetry 100 100 100 01/04/18 01:19 01/04/18 01:43 01/04/18 02:00 Temperature Pulse Rate 92 H 85 82 Respiratory Rate 14 12 11 L Blood Pressure 184/85 H 166/80 H Pulse Oximetry 100 100 100 01/04/18 02:43 01/04/18 02:45 01/04/18 03:00 Temperature Pulse Rate 100 H 90 80 Respiratory Rate 21 16 12 Blood Pressure 202/92 H 185/86 H Pulse Oximetry 100 100 100 01/04/18 03:43 01/04/18 04:00 01/04/18 04:43 Temperature 98.3 F Pulse Rate 72 70 77 Respiratory Rate 14 15 9 L Blood Pressure 169/78 H 180/84 H 180/84 H Pulse Oximetry 100 100 100 01/04/18 05:00 01/04/18 05:43 01/04/18 06:00 Temperature Pulse Rate 69 83 90 Respiratory Rate 9 L 11 L 9 L Blood Pressure 143/67 H Pulse Oximetry 100 100 100 01/04/18 06:43 01/04/18 07:00 01/04/18 07:43 Temperature 97.9 F Pulse Rate 91 H 96 H 86 Respiratory Rate 8 L 19 8 L Blood Pressure 146/67 H 146/68 H Pulse Oximetry 100 100 100 01/04/18 08:00 01/04/18 08:43 01/04/18 09:00 Temperature Pulse Rate 97 H 85 94 H Respiratory Rate 24 8 L 17 Blood Pressure 148/69 H Pulse Oximetry 100 100 100 01/04/18 09:54 Temperature Pulse Rate Respiratory Rate Blood Pressure Pulse Oximetry 100 Intake & Output 01/03/18 01/04/18 01/04/18 18:59 06:59 18:59 Intake Total 704 / 704 1678 / 1678 Output Total 1550 / 1550 1875 / 1875 Balance -846 / -846 -197 / -197 Weight 64.3 kg Intake: IV 641 / 641 1678 / 1678 D5W/LR Inj 1,000 ML @ 40 mls/hr 1000 / 1000 IV.CONT .Q24H [facility] Rx#:[id number] Diprivan 1000 mg/100 ml Inj 1, 52 / 52 000 mg In 100 ml @ 5 MCG/KG/MIN 1.837 mls/hr IV.CONT TITRATE PRN Rx#:[id number] Flexbumin 25% Inj 100 ML @ 60 100 / 100 100 / 100 mls/hr IV.SIG Q12H [facility] Rx#: [id number] Diflucan 400 mg Premix Bag 200 200 / 200 ML @ 100 mls/hr IV.SIG Q24H [facility] Rx#:[id number] Zosyn 4.5 GM Premix 4.5 gm In 100 / 100 200 / 200 100 ml @ 200 mls/hr IV.SIG Q6H [facility] Rx#:[id number] fentaNYL 10 mcg/mL Premix Drip 189 / 189 378 / 378 2,500 mcg In 250 ml @ 50 MCG/HR 5 mls/hr IV.SIG TITRATE PRN Rx #:[id number] Tube Feeding 63 / 63 Output: Stool 200 / 200 Urine Amount (Catheter) 1150 / 1150 1700 / 1700 1 1150 / 1150 1700 / 1700 Wound Vac Amount 200 / 200 175 / 175 Posterior Sacrum 200 / 200 175 / 175 Other: Mode Setting Posterior Sacrum Continuous Continuous Continuous Date of Last Bowel Movement 01/03/18 01/03/18 01/03/18 12/24/17 12:20 Tissue - Buttock Acid Fast Bacilli Smear - Final No acid fast bacilli seen 12/24/17 12:20 Tissue - Buttock Mycobacterial Culture - Preliminary No growth in 1 week Lab - Hematology Results 01/04/18 04:10 WBC 9.8 RBC 2.65 L Hgb 8.3 L Hct 23.6 L MCV 89.3 MCH 31.4 MCHC 35.1 RDW 16.1 Plt Count 167 MPV 9.2 Neut % (Auto) 64.9 Lymph % (Auto) 24.4 Worth % (Auto) 6.6 Eos % (Auto) 3.4 Baso % (Auto) 0.7 Neut # (Auto) 6.4 Lymph # (Auto) 2.4 Worth # (Auto) 0.7 Eos # (Auto) 0.3 Baso # (Auto) 0.1 WBC Differential . Differential Comment Auto diff final Lab - Chemistry Results 01/02/18 01/02/18 01/02/18 17:20 20:24 20:28 Sodium Potassium 3.5 Chloride Carbon Dioxide Anion Gap BUN Creatinine Estimated GFR POC Glucose 177 H 167 H Random Glucose Calcium 01/02/18 01/03/18 01/03/18 23:55 04:05 08:41 Sodium 142 Potassium 3.3 L Chloride 102 Carbon Dioxide 29.8 Anion Gap 10 BUN 13 Creatinine 0.96 Estimated GFR 61 L POC Glucose 174 H 186 H Random Glucose 159 H Calcium 8.1 L 01/03/18 01/03/18 01/03/18 12:24 12:57 16:58 Sodium Potassium 4.5 D Chloride Carbon Dioxide Anion Gap BUN Creatinine Estimated GFR POC Glucose 211 H 151 H Random Glucose Calcium 01/03/18 01/03/18 01/04/18 21:17 23:47 04:10 Sodium 141 Potassium 3.3 L D Chloride 101 Carbon Dioxide 33.3 H Anion Gap 7 BUN 18 Creatinine 0.83 Estimated GFR 72 L POC Glucose 215 H 158 H Random Glucose 113 H Calcium 8.5 01/04/18 08:39 Sodium Potassium Chloride Carbon Dioxide Anion Gap BUN Creatinine Estimated GFR POC Glucose 153 H Random Glucose Calcium Imaging: ITS Impressions Femur X-Ray 12/15/17 07:05 CONCLUSION: No fracture is identified. There is extensive soft tissue air in the right gluteal region and extending into the proximal and mid posterior thigh. The soft tissue air suggests an open wound. Pelvis X-Ray 12/15/17 07:05 CONCLUSION: No fracture is identified. However, there is extensive soft tissue air in the left gluteal region and left proximal thigh. Pelvis CT 12/15/17 07:52 CONCLUSION: 1. No fracture is identified. 2. Extensive subcutaneous and soft tissue gas bilaterally, left greater than right. It is most severe in the left gluteal region and extends into the proximal posterior thigh. The soft tissue air dissects through the gluteal musculature. There is adjacent subcutaneous edema. Foot X-Ray 12/18/17 00:00 CONCLUSION: Remote small avulsion fracture at the fifth toe. No acute bony abnormality. Venous Doppler Study 12/22/17 00:00 CONCLUSION: Extensive deep vein thrombosis of the left upper extremity. Chest X-Ray 12/31/17 06:00 CONCLUSION: 1. Tracheostomy tube is now seen. Endotracheal tube is no longer seen. 2. Bilateral pulmonary opacity is again seen with interval increase in the right lower lung zone opacity. No change in the left. Physical Exam: PHYSICAL EXAMINATION: GENERAL: Awake. Sedated. HEENT: Pale sclera. Oropharynx mucosa is moist. NECK: Supple. No adenopathy or swelling. LUNGS: Bilateral rhonchi. HEART: irregular S1 and S2. 1-2/6 systolic murmur at the left sternal border. ABDOMEN: Bowel sounds present, soft. BACK: Surgical wound post debridement across the lower back, buttock and thigh. Vac in place. EXTREMITIES: No clubbing, no cyanosis or edema. abrasion with dry necrotic changes at left dorsal toes 2-4. SKIN: No diffuse rash. Scattered ecchymotic lesions. NEUROLOGIC: Unable to assess. PSYCHIATRIC: Unable to assess. Assessment and Plan - Plan IMPRESSION: 1. Necrotizing fasciitis of the back, buttock and thigh. 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 Still undergoing periodic debridement wit Vac changes. 2. Septic shock. Responded to broad-spectrum antibiotics. 3. Acute respiratory failure. 4. Chronic kidney disease. 5. Leukocytosis. Improved. RECOMMENDATIONS: 1. Continue Diflucan. 2. Stop Zosyn. 3. Monitor clinical status Please call ID on weekend call if assistance is needed next couple of days.
--- NOTE | 2018-01-04 13:50 | P.PNCC ---
Subjective Subjective Remarks/Hospital Course: This 52-year-old woman with long-standing uncontrolled diabetes mellitus and severe peripheral arterial disease related to a long-term heavy smoking history was found down at her home and initial blood glucose was 610. Her lower back and buttocks was exquisitely tender and a mid line stage IV sacral decubitus was oozing purulent material and inflamed and the surrounding soft tissue. White count was not elevated but 90% neutrophils. Temperature 97 degrees. Moderately encephalopathic though conversant. X-rays revealed no fractures in the pelvis but CAT scan demonstrated extensive subcutaneous air emanating in both directions left and right from the mid sacral region. This is clearly necrotizing fasciitis or some other gas-forming infection and the woman is critically ill. She received vancomycin, Zosyn, and clindamycin antibiotic therapy as quickly as possible and was transferred to the ICU for ongoing resuscitation. Because of worsening hemodynamic stability she required intubation and mechanical ventilation followed by central line placement on arrival to the ICU. Insulin drip infusion was started in the emergency department and glucose had declined into the low 400s. She was not in ketoacidosis but lactic acid was elevated at 3.1. General surgery and orthopedic surgery were consulted for recommendations and it was felt that this woman was too unstable to tolerate an operative procedure immediately. We continue her ongoing resuscitation and trial in the ICU at this stage. 12/16: Following aggressive resuscitation yesterday for the treatment of severe hyperglycemia, septic shock, respiratory failure, metabolic acidosis, acute kidney injury, the patient went to the operating room with an extensive wide debridement bilateral gluteal and left thigh soft tissue and muscle. Primary antibiotic coverage at this point is vancomycin, cefepime, clindamycin. The patient started to make urine late yesterday afternoon and has continued to acceptable output since. Lactic acidosis is 2.0 this morning but metabolic acidosis persists despite bicarb drip. She remains on vasopressor support and hemodynamically unstable. 12/17: s/p debridement of large nec fasc wound. remains in shock today. also very hypoglycemic requiring multiple D50 amps overnight. 12/18: back in worsening shock. vasopressor support higher. required 2L crystalloid overnight and additional 1L and 500cc albumin today. ivc completely flat on bedside echo. LVEF hyperdynamic. no pericardial effusion. spoken with gen surg. plan to go back early to eval for worsening necrosis. fio2 also up to 100% and peep 10- hypoxic, likely early ARDS. 12/19: clinically doing better. still in shock on vasopressors, but requirements are lower and lactate cleared. Cr slowly uptrending. SVV still 19% today and appears to be volume responsive. gen surgery ordered 2 units prbc for falling hgb in the setting of blood loss with surgical intervention yesterday. fio2 improving. glycemic control also improving. 12/20: Markedly impaired oxygenation persists. Still requiring elevated end expiratory pressure. Nutritional support continues but she remains catabolic. It will be difficult to keep up with her nutritional needs. 12/21: Continued severe sepsis requiring vasopressor support and mechanical ventilation. Oxygenation remains impaired and smoldering metabolic acidosis persists. Despite hemodynamic instability the patient's only hope for survival is with infection source control through further debridement. Clearly a greatly increased risk however for any procedure. 12/22: Persistent septic shock course requiring vasopressor support and regular debridement. Good antibiotic coverage but she continues to require adjustment of ventilator, hemodynamic support drugs, antibiotics, intravenous fluids. Her nutritional status was quite depleted on arrival and continues to deteriorate despite adjuvant nutrition. 12/23: Patient continues septic course. She has developed venous clot throughout her left internal jugular subclavian and axillary vein system. Not a candidate for full anticoagulation because of need for frequent surgical debridement. We will pull out the catheter today and placing In the right subclavian route. 12/24 remains critically ill and septic remains on Rj-Synephrine at 50 mcg/kg/ min. WBC count increasing 20 6K today. Antibiotics have been changed by ID. Diflucan added for Talia UTI. Plan for OR today per surgery 12/25: Went to OR yesterday, s/p Incision, drainage with excisional debridement of back, buttock, thigh, and VAC change. Main septic White count increasing 31, 000 today, remains on pressors vasopressin and Rj-Synephrine. 12/26: Remains critical remains on vasopressin to maintain blood pressure and map above 65, currently off Rj-Synephrine. Remains severely fluid overloaded approximately 20 kg up. Despite pressor use will start IV diuretics to achieve negative fluid balance 12/27: Intubated sedated but more awake follows some commands. Hemoglobin down to 6.4, 2 g dropped, receiving 2 units of PRBC. No obvious bleeding noted. Currently had been weaned off the pressors. Or planned for tomorrow again 12/28: OR today for wound VAC change and I&D, possible tracheostomy. Potassium is 2.6 getting replaced. Hemoglobin stable. Remains off pressors. Urine output almost 8 L with forced diuresis 12/29: Status post OR for wound VAC change in tracheostomy yesterday. Getting for his diuresis urine output more than 4 L in 24 hours. Remains intubated sedated intermittently follows commands. Plan for I&D wound VAC change again on Saturday 12/30: Remains intubated sedated more stable. Urine output remains excellent with diuresis. Plan for OR in a.m. for further I&D and VAC change 12/31: Patient remains intubated plan for OR today with Dr. Muir for further I&D and wound VAC change. Making urine more than 4 L in 24 hours with diuresis. Getting closer to admission weight. Potassium 3.3 getting replacement 01/01: Remains intubated sedated failing CPAP due to low tidal volumes. Status post OR yesterday for the I&D tomorrow planned by general surgery. Urine output 3 L in 24 hours 01/02: Potassium being replaced. Ready for OR today. Return from the OR with stable hemodynamics on mechanical ventilation. 01/03: Attempted spontaneous breathing trials today and converted to T piece. We will continue this method of weaning. Nutrition infusing and well- tolerated. Severity of wound will require a lengthy hospitalization. 01/04: Nasogastric tube is out. She is much more alert and we will try a swallow evaluation before replacing. Contraction alkalosis is developing with diuretics, will add a carbonic anhydrase inhibitor. Objective Vital Signs / I&O: Vital Signs 01/03/18 14:00 01/03/18 14:43 01/03/18 15:00 Temperature Pulse Rate 105 H 95 H 99 H Respiratory Rate 95 H 88 H 91 H Blood Pressure 139/73 Pulse Oximetry 100 100 100 01/03/18 15:43 01/03/18 16:00 01/03/18 16:43 Temperature 98.4 F Pulse Rate 97 H 104 H 108 H Respiratory Rate 86 H 60 H 70 H Blood Pressure 138/79 179/97 H Pulse Oximetry 100 100 100 01/03/18 17:00 01/03/18 17:43 01/03/18 18:00 Temperature Pulse Rate 102 H 99 H 90 Respiratory Rate 81 H Blood Pressure 137/68 Pulse Oximetry 100 100 100 01/03/18 18:43 01/03/18 19:00 01/03/18 19:43 Temperature Pulse Rate 87 89 92 H Respiratory Rate Blood Pressure 153/81 H 172/82 H Pulse Oximetry 100 100 100 01/03/18 20:00 01/03/18 20:43 01/03/18 21:00 Temperature 98.5 F Pulse Rate 82 83 83 Respiratory Rate 12 Blood Pressure 172/82 H 175/80 H Pulse Oximetry 100 100 100 01/03/18 21:43 01/03/18 22:00 01/03/18 22:43 Temperature Pulse Rate 102 H 100 H 82 Respiratory Rate 10 L Blood Pressure 179/84 H 136/84 Pulse Oximetry 100 100 100 01/03/18 23:00 01/03/18 23:43 01/03/18 23:50 Temperature Pulse Rate 90 105 H 96 H Respiratory Rate 10 L 26 H 15 Blood Pressure 197/96 H 172/82 H Pulse Oximetry 100 100 100 01/04/18 00:00 01/04/18 00:55 01/04/18 00:57 Temperature 98.1 F Pulse Rate 111 H 85 81 Respiratory Rate 22 17 13 Blood Pressure 172/82 H 194/88 H 196/86 H Pulse Oximetry 100 100 100 01/04/18 01:00 01/04/18 01:02 01/04/18 01:19 Temperature Pulse Rate 95 H 80 92 H Respiratory Rate 17 23 14 Blood Pressure 188/78 H 184/85 H Pulse Oximetry 100 100 100 01/04/18 01:43 01/04/18 02:00 01/04/18 02:43 Temperature Pulse Rate 85 82 100 H Respiratory Rate 12 11 L 21 Blood Pressure 166/80 H 202/92 H Pulse Oximetry 100 100 100 01/04/18 02:45 01/04/18 03:00 01/04/18 03:43 Temperature Pulse Rate 90 80 72 Respiratory Rate 16 12 14 Blood Pressure 185/86 H 169/78 H Pulse Oximetry 100 100 100 01/04/18 04:00 01/04/18 04:43 01/04/18 05:00 Temperature 98.3 F Pulse Rate 70 77 69 Respiratory Rate 15 9 L 9 L Blood Pressure 180/84 H 180/84 H Pulse Oximetry 100 100 100 01/04/18 05:43 01/04/18 06:00 01/04/18 06:43 Temperature Pulse Rate 83 90 91 H Respiratory Rate 11 L 9 L 8 L Blood Pressure 143/67 H 146/67 H Pulse Oximetry 100 100 100 01/04/18 07:00 01/04/18 07:43 01/04/18 08:00 Temperature 97.9 F Pulse Rate 96 H 86 97 H Respiratory Rate 19 8 L 24 Blood Pressure 146/68 H Pulse Oximetry 100 100 100 01/04/18 08:43 01/04/18 09:00 01/04/18 09:54 Temperature Pulse Rate 85 94 H Respiratory Rate 8 L 17 Blood Pressure 148/69 H Pulse Oximetry 100 100 100 Intake & Output 01/03/18 01/04/18 01/04/18 18:59 06:59 18:59 Intake Total 704 / 704 1678 / 1678 189 / 189 Output Total 1550 / 1550 1875 / 1875 Balance -846 / -846 -197 / -197 189 / 189 Weight 64.3 kg Intake: IV 641 / 641 1678 / 1678 189 / 189 D5W/LR Inj 1,000 ML @ 40 mls/hr 1000 / 1000 IV.CONT .Q24H RICARDO Rx#:[id number] Diprivan 1000 mg/100 ml Inj 1, 52 / 52 000 mg In 100 ml @ 5 MCG/KG/MIN 1.837 mls/hr IV.CONT TITRATE PRN Rx#:[id number] Flexbumin 25% Inj 100 ML @ 60 100 / 100 100 / 100 mls/hr IV.SIG Q12H RICARDO Rx#: [id number] Diflucan 400 mg Premix Bag 200 200 / 200 ML @ 100 mls/hr IV.SIG Q24H RICARDO Rx#:[id number] Zosyn 4.5 GM Premix 4.5 gm In 100 / 100 200 / 200 100 ml @ 200 mls/hr IV.SIG Q6H RICARDO Rx#:[id number] fentaNYL 10 mcg/mL Premix Drip 189 / 189 378 / 378 189 / 189 2,500 mcg In 250 ml @ 50 MCG/HR 5 mls/hr IV.SIG TITRATE PRN Rx #:[id number] Tube Feeding 63 / 63 Output: Stool 200 / 200 Urine Amount (Catheter) 1150 / 1150 1700 / 1700 1 1150 / 1150 1700 / 1700 Wound Vac Amount 200 / 200 175 / 175 Posterior Sacrum 200 / 200 175 / 175 Other: Mode Setting Posterior Sacrum Continuous Continuous Continuous Date of Last Bowel Movement 01/03/18 01/03/18 01/03/18 Result Diagrams: 01/04/18 04:10 01/04/18 04:10 Objective Remarks: General: Ill-appearing middle-aged woman, intubated and sedated. Head: Atraumatic, edentulous, mouth clean Neck: Supple, trach site clean, dry. Lungs: Few scattered rhonchi persist, air movement good bilaterally Heart: Regular rate rate and regular rhythm. no JVD. Abdomen: Soft, no guarding, no peritoneal irritation. Bowel sounds are active. Back: Wound VAC remains in place over lower lumbar region. Extremities: Warm, well perfused, status post below-knee amputation right side, necrotic ulceration over several toes left foot. Generalized edema involving the left arm. Neurological: Tracheostomy for mechanical ventilation and lightly sedated, moves 4 limbs to stimulation. Pupils responsive. Follows commands x4 when sedation is lightened. Tracks with eyes. Assessment and Plan - Problem List (1) Septic shock with acute organ dysfunction due to anaerobic bacteria Code(s): A41.4 - Sepsis due to anaerobes; R65.21 - Severe sepsis with septic shock Status: Acute (2) Acute respiratory failure Code(s): J96.00 - Acute respiratory failure, unspecified whether with hypoxia or hypercapnia Status: Acute (3) Necrotizing fasciitis Code(s): M72.6 - Necrotizing fasciitis Status: Acute (4) Type 2 diabetes mellitus with hyperosmolar nonketotic hyperglycemia Code(s): E11.01 - Type 2 diabetes mellitus with hyperosmolarity with coma Status: Acute (5) MARIO (acute kidney injury) Code(s): N17.9 - Acute kidney failure, unspecified Status: Acute (6) Lactic acidosis Code(s): E87.2 - Acidosis Status: Acute - Assessment and Plan Plan: Assessment: 52yF with large necrotizing soft tissue infection of the lower back and sacrum complicated by septic shock and multiorgan dysfunction. OR 01/02, then for further I&D, wound VAC change. Plan: Neurological Acute metabolic encephalopathy -Sedation with propofol, Analgesia with fentanyl -Encephalopathy largely due to sepsis improving, daily sedation location -RASS goal -1. Following commands x4 -Lighten RASS to 0 Cardiovascular Septic Shock- improving Myocardial dysfunction secondary to septic shock Fluid overload - Currently remains off all pressors - Received 2 units PRBC 12/27/2017 for hemoglobin of 6.4. Currently hemoglobin stable - IV Lasix due to fluid overload 20 mg every 12 with excellent response, getting closer to admission weight - Continue potassium replacement. Follow acid-base balance closely -Continue twice daily diuretic therapy Respiratory Acute hypoxic and hypercarbic respiratory failure- persistent - Intubation and mechanical ventilation, Bronchodilators. - HOB elevated, vent bundle. wean fio2 for goal spo2 > 90% - CPAP trial daily, failed today due to low tidal volumes - s/p Trach in OR 12/28/17. -T piece trials are successful Endocrinology Diabetes Severe hypoglycemia - Med scale SSI. - Follow potassium and magnesium closely Hematology/Infectious Disease Septic Shock Necrotizing soft tissue infection - Follow white count and platelet count closely. - Continue daptomycin and Zosyn. Diflucan for fungal coverage. - OR per general surgery, s/p I&D and wound VAC change on 12/31/2017, 01/02/18 GI Acute protein calorie malnutrition- severe - prealbumin 5 on 12/18. severely malnourished. - daily bmp, mg, phos - Tube feeds infusing, tolerated - Follow prealbumin weekly Acute kidney injury - Tristan required for hourly urine output and to protect perineal region - High risk for further deterioration in renal function HEME Left upper extremity DVT - DVT left internal jugular, subclavian, axillary and distal arm veins. - Cannot anticoagulate secondary to blood loss anemia requiring blood transfusion, frequent surgeries Prophylaxis - Pepcid for GI ulcer prophylaxis - SCDs for DVT prophylaxis - Hold chemical DVT prophylaxis until ongoing surgical decisions regarding further debridement are made Lines: Left subclavian central venous line placed 12/15, discontinued 12/23. Right subclavian central venous line placed 12/23, change now Overall impression: This woman was initially critically ill and in septic shock with necrotizing fasciitis emanating from a deep chronic sacral decubitus ulcer. Peripheral perfusion and urine output remains acceptable. Still requiring multiple or trips for I&D and VAC changes. Family request continued aggressive care. Nutritional support is a mainstay of therapy now.
--- NOTE | 2018-01-04 16:32 | MP ---
cc: Ventura Bazzi MD DATE OF OPERATION: 01/04/2018 PREOPERATIVE DIAGNOSIS: Necrotizing fasciitis buttocks, back and upper thigh, status post multiple debridements. POSTOPERATIVE DIAGNOSIS: Necrotizing fasciitis buttocks, back and upper thigh, status post multiple debridements. PROCEDURE PERFORMED: Incision and debridement with excisional debridement and partial closure with VAC change to lower back, buttock, and bilateral upper thighs. SURGEON: Ventura Bazzi MD [employer] WORKER: None. ANESTHESIA: GETA. IV FLUIDS: See anesthesia. ESTIMATED BLOOD LOSS: 5 mL DRAINS: Hemovac. COMPLICATIONS: None. WOUND CLASSIFICATION: Dirty. SPECIMENS: None. FINDINGS: Minimal purulence, no undrained abscess cavities. Good hemostasis. Granulation tissue improving. INDICATION: The presented initially a 52-year-old female with severe diabetic ketoacidosis with necrotizing fasciitis to sacral decubitus wound. The patient underwent emergency debridement for necrotizing fasciitis with VAC placement. She has undergone subsequent multiple VAC changes and required aggressive resuscitation and care. She is here for a planned VAC change. DETAILS OF PROCEDURE: The patient was taken to the operating suite. She was already intubated via trach and placed in the prone position. She was prepped and draped in the usual sterile fashion. After anesthesia, the VAC was removed. The area was identified. Minimal debridement to fascial purulent tissue. Irrigation done. The wound was looking healthier; therefore #2 nylon was placed vertical mattress to the left side to assist in approximation and a centralized suture was placed in horizontal mattress as well #2 nylon. There were 2 drains already, JPs noted in bilateral sides, one further MAGALYS was placed perirectal to a deeper area and VAC was cut to size. The size measured overall 35 x 20 cm 0.5 cm deep. A plastic dressing placed, tract pad placed. Good suction without leak. The patient tolerated the procedure, taken back to ICU in a guarded position. No complications. Ventura Bazzi MD LSN/ct , 03:58 PM , 04:06 PM
[2018-01-04] MEDS: ceFAZolin 2 GM Premix Inj 2 GM/50 ML PIGGYBACK IV.SIG ONE ×2 (18:52→21:08)
[2018-01-05] MEDS: Oral Hygiene Kit OROPHARYNG SCH ×3 (00:08→16:41)
[2018-01-05] MEDS: Albumin Human 25% Inj 100 ML IV.SIG SCH ×2 (01:54→13:49)
[2018-01-05] MEDS: fentaNYL 10 mcg/mL Premix Drip 2,500 MCG/250 ML BAG IV.SIG PRN (02:15)
[2018-01-05 05:58] LABS: Calcium 8.6 mg/dL (8.5-10.1); Carbon Dioxide 29.9 meq/L (21.0-32.0)
[2018-01-05 06:13] LABS: Potassium 2.7 meq/L (3.5-5.1)
[2018-01-05] MEDS: Potassium Chlor 40 mEq Premix 40 MEQ/100 ML PIGGYBACK IV.SIG PRN ×2 (07:28→12:10)
[2018-01-05] MEDS: Insulin NovoLIN Regular Correctional Sugar Inj SQ SCH ×5 (07:52→16:41)
[2018-01-05] MEDS: Famotidine PF Inj 20 MG/2 ML Vial IV.PUSH SCH ×2 (08:02→22:11)
[2018-01-05] MEDS: hydrALAZINE HCl Inj 20 MG/ML Vial IV.PUSH PRN ×2 (08:03→12:17)
[2018-01-05] MEDS: Chlorhexidine 0.12% Oral Kit 15 ML UDC OROPHARYNG SCH ×2 (08:04→22:10)
[2018-01-05] MEDS: Potassium Bicarbonate 25 MEQ Effervescent Tablet NG/OG SCH ×3 (08:04→22:10)
[2018-01-05] MEDS: Enoxaparin Inj 30 MG/0.3 ML Syringe SQ SCH (08:04)
[2018-01-05] MEDS: Senna/Docusate Sodium 8.6/50 MG Tablet PO SCH ×2 (08:07→22:11)
[2018-01-05] MEDS: Dextrose 5%/Lactated Ringer's 1,000 ML IV.CONT SCH (12:15)
--- NOTE | 2018-01-05 16:05 | P.PN ---
Subjective Interval history: No issues overnight Physical Exam Vital signs: Vital Signs 01/04/18 16:15 01/04/18 16:17 01/04/18 16:20 Temperature 98 F Pulse Rate 100 H 95 H 92 H Respiratory Rate 20 21 16 Blood Pressure 166/72 H 167/72 H Pulse Oximetry 100 100 100 01/04/18 16:23 01/04/18 16:26 01/04/18 16:29 Temperature Pulse Rate 93 H 101 H 103 H Respiratory Rate 12 28 H 24 Blood Pressure 164/72 H 168/74 H 174/76 H Pulse Oximetry 100 100 100 01/04/18 16:33 01/04/18 16:35 01/04/18 16:39 Temperature Pulse Rate 96 H 104 H 106 H Respiratory Rate 17 22 21 Blood Pressure 158/65 H 173/77 H 173/76 H Pulse Oximetry 100 100 100 01/04/18 16:42 01/04/18 16:44 01/04/18 16:47 Temperature Pulse Rate 105 H 105 H 112 H Respiratory Rate 23 19 32 H Blood Pressure 178/77 H 156/77 H 171/77 H Pulse Oximetry 100 100 100 01/04/18 16:50 01/04/18 16:53 01/04/18 16:56 Temperature Pulse Rate 102 H 102 H 95 H Respiratory Rate 11 L 23 20 Blood Pressure 170/74 H 170/77 H 158/68 H Pulse Oximetry 100 100 100 01/04/18 16:59 01/04/18 17:00 01/04/18 17:02 Temperature Pulse Rate 102 H 108 H 106 H Respiratory Rate 13 23 15 Blood Pressure 155/70 H 173/75 H Pulse Oximetry 100 100 100 01/04/18 17:06 01/04/18 17:08 01/04/18 17:12 Temperature Pulse Rate 108 H 104 H 102 H Respiratory Rate 18 18 15 Blood Pressure 174/76 H 174/76 H 169/64 H Pulse Oximetry 100 100 100 01/04/18 17:15 01/04/18 17:17 01/04/18 17:20 Temperature Pulse Rate 99 H 100 H 99 H Respiratory Rate 16 12 16 Blood Pressure 169/72 H 161/70 H 157/73 H Pulse Oximetry 100 100 100 01/04/18 17:23 01/04/18 17:26 01/04/18 19:45 Temperature Pulse Rate 112 H 112 H Respiratory Rate 22 26 H Blood Pressure 177/80 H 173/77 H Pulse Oximetry 100 100 100 01/04/18 20:00 01/04/18 20:47 01/04/18 20:50 Temperature Pulse Rate 90 89 87 Respiratory Rate 10 L 11 L Blood Pressure 175/77 H 170/75 H Pulse Oximetry 100 100 01/04/18 20:54 01/04/18 20:57 01/04/18 21:00 Temperature Pulse Rate 88 92 H 87 Respiratory Rate 9 L 16 8 L Blood Pressure 169/76 H 164/74 H 164/74 H Pulse Oximetry 100 100 100 01/04/18 21:02 01/04/18 21:05 01/04/18 21:08 Temperature Pulse Rate 85 84 82 Respiratory Rate 10 L 9 L 11 L Blood Pressure 160/72 H 163/74 H 164/74 H Pulse Oximetry 100 100 100 01/04/18 21:11 01/04/18 21:14 01/04/18 21:17 Temperature Pulse Rate 90 90 95 H Respiratory Rate 11 L 16 28 H Blood Pressure 170/77 H 160/71 H 163/81 H Pulse Oximetry 100 100 100 01/04/18 21:20 01/04/18 21:23 01/04/18 21:27 Temperature Pulse Rate 100 H 98 H 103 H Respiratory Rate 20 15 19 Blood Pressure 164/70 H 157/71 H 161/74 H Pulse Oximetry 98 100 100 01/04/18 21:30 01/04/18 21:33 01/04/18 21:35 Temperature Pulse Rate 95 H 94 H 90 Respiratory Rate 12 10 L 9 L Blood Pressure 167/78 H 155/68 H 159/72 H Pulse Oximetry 100 100 100 01/04/18 21:38 01/04/18 21:41 01/04/18 21:44 Temperature Pulse Rate 89 90 87 Respiratory Rate 8 L 7 L 9 L Blood Pressure 152/69 H 153/70 H 153/70 H Pulse Oximetry 100 100 100 01/04/18 21:47 01/04/18 21:50 01/04/18 21:53 Temperature Pulse Rate 88 88 Respiratory Rate 9 L 8 L Blood Pressure 156/73 H 159/72 H 161/73 H Pulse Oximetry 100 100 01/04/18 22:00 01/04/18 22:03 01/04/18 22:06 Temperature Pulse Rate 94 H 86 90 Respiratory Rate 14 14 9 L Blood Pressure 166/76 H 158/72 H 158/73 H Pulse Oximetry 100 100 100 01/04/18 22:08 01/04/18 22:11 01/04/18 22:14 Temperature Pulse Rate 94 H 87 88 Respiratory Rate 12 9 L 10 L Blood Pressure 164/75 H 159/74 H 158/74 H Pulse Oximetry 100 100 100 01/04/18 22:17 01/04/18 22:20 01/04/18 22:23 Temperature Pulse Rate 87 88 87 Respiratory Rate 11 L 8 L 17 Blood Pressure 161/74 H 162/74 H 160/72 H Pulse Oximetry 100 100 100 01/04/18 22:26 01/04/18 22:30 01/04/18 22:33 Temperature Pulse Rate 93 H 91 H 88 Respiratory Rate 16 10 L 8 L Blood Pressure 164/77 H 159/72 H 163/74 H Pulse Oximetry 100 100 100 01/04/18 22:36 01/04/18 22:38 01/04/18 22:41 Temperature Pulse Rate 87 88 91 H Respiratory Rate 9 L 8 L 13 Blood Pressure 161/72 H 165/75 H 170/79 H Pulse Oximetry 100 100 100 01/04/18 22:44 01/04/18 22:47 01/04/18 22:50 Temperature Pulse Rate 95 H 89 86 Respiratory Rate 12 8 L 10 L Blood Pressure 163/72 H 154/70 H 158/72 H Pulse Oximetry 100 100 100 01/04/18 22:53 01/04/18 22:56 01/04/18 23:00 Temperature Pulse Rate 88 87 88 Respiratory Rate 10 L 10 L 14 Blood Pressure 158/71 H 154/72 H 150/70 H Pulse Oximetry 100 100 100 01/04/18 23:03 01/04/18 23:06 01/04/18 23:09 Temperature Pulse Rate 88 105 H 92 H Respiratory Rate 9 L 23 10 L Blood Pressure 150/70 H 172/80 H 154/71 H Pulse Oximetry 100 100 100 01/04/18 23:11 01/04/18 23:59 01/05/18 00:14 Temperature 97.6 F Pulse Rate 91 H 83 Respiratory Rate 9 L 13 Blood Pressure 153/70 H 164/73 H 163/70 H Pulse Oximetry 100 100 01/05/18 00:30 01/05/18 01:00 01/05/18 02:00 Temperature Pulse Rate 84 85 Respiratory Rate 10 L 8 L Blood Pressure 145/69 H 169/76 H Pulse Oximetry 100 100 100 01/05/18 03:00 01/05/18 04:00 01/05/18 05:00 Temperature 97.8 F Pulse Rate 88 85 75 Respiratory Rate 11 L 17 14 Blood Pressure 170/73 H 174/75 H 175/81 H Pulse Oximetry 100 100 100 01/05/18 05:50 01/05/18 06:00 01/05/18 06:20 Temperature Pulse Rate 87 96 H 85 Respiratory Rate 17 21 15 Blood Pressure 184/84 H 171/77 H Pulse Oximetry 100 100 100 01/05/18 06:50 01/05/18 07:00 01/05/18 07:20 Temperature Pulse Rate 98 H 83 82 Respiratory Rate 21 12 13 Blood Pressure 181/86 H 180/78 H Pulse Oximetry 100 100 100 01/05/18 07:50 01/05/18 08:00 01/05/18 08:20 Temperature 98.6 F Pulse Rate 102 H 88 111 H Respiratory Rate 23 13 18 Blood Pressure 199/86 H 187/81 H Pulse Oximetry 100 100 100 01/05/18 08:50 01/05/18 09:00 01/05/18 09:20 Temperature Pulse Rate 110 H 107 H 109 H Respiratory Rate 19 18 22 Blood Pressure 171/72 H 170/77 H Pulse Oximetry 100 100 100 01/05/18 09:50 01/05/18 10:00 01/05/18 10:02 Temperature Pulse Rate 121 H 109 H Respiratory Rate 20 18 Blood Pressure 180/83 H Pulse Oximetry 100 100 100 01/05/18 10:20 01/05/18 10:50 01/05/18 11:00 Temperature Pulse Rate 104 H 109 H 107 H Respiratory Rate 15 19 16 Blood Pressure 163/72 H 163/73 H Pulse Oximetry 100 100 100 01/05/18 11:20 01/05/18 11:50 01/05/18 12:00 Temperature 98.2 F Pulse Rate 111 H 110 H 105 H Respiratory Rate 19 19 14 Blood Pressure 166/76 H 163/74 H Pulse Oximetry 100 100 100 01/05/18 12:20 01/05/18 12:50 01/05/18 13:00 Temperature Pulse Rate 106 H 107 H 106 H Respiratory Rate 16 17 15 Blood Pressure 160/72 H 140/63 Pulse Oximetry 100 100 100 01/05/18 13:20 Temperature Pulse Rate 108 H Respiratory Rate 15 Blood Pressure 133/62 Pulse Oximetry 100 Intake & Output 01/04/18 01/05/18 01/05/18 18:59 06:59 18:59 Intake Total 1689 / 1689 500 / 500 200 / 200 Output Total 1255 / 1255 1270 / 1270 Balance 434 / 434 -770 / -770 200 / 200 Weight 78.3 kg Intake: IV 1289 / 1289 500 / 500 200 / 200 D5W/LR Inj 1,000 ML @ 40 mls/hr 1000 / 1000 IV.CONT .Q24H [facility] Rx#:[id number] Flexbumin 25% Inj 100 ML @ 60 100 / 100 100 / 100 mls/hr IV.SIG Q12H [facility] Rx#: [id number] Diflucan 400 mg Premix Bag 200 200 / 200 ML @ 100 mls/hr IV.SIG Q24H [facility] Rx#:[id number] KCl 40 mEq Premix Inj 40 meq In 100 / 100 100 ml @ 25 mls/hr IV.SIG Q2H PRN Rx#:[id number] Ancef 2 GM Premix Inj 2 gm In 50 / 50 50 ml @ 100 mls/hr IV.SIG ONCE ONE Rx#:[id number] fentaNYL 10 mcg/mL Premix Drip 189 / 189 250 / 250 2,500 mcg In 250 ml @ 50 MCG/HR 5 mls/hr IV.SIG TITRATE PRN Rx #:[id number] Anesthesia Amount 400 / 400 Output: Stool 20 / 20 Estimated Blood Loss 5 / 5 Urine Amount (Catheter) 1150 / 1150 1250 / 1250 1 1150 / 1150 1250 / 1250 Wound Drainage 100 / 100 # 1 Lower Back MAGALYS Drain 100 / 100 Other: Mode Setting Posterior Sacrum Continuous Continuous Continuous Date of Last Bowel Movement 01/03/18 01/05/18 - Routine Skin Exam Comments: Back: wound VAC intact and without leaking - Urinary Catheter Management 1 Cath placed during this visit: yes Reason for continuing: Acute urinary retention Insertion date: 12/15/17 Results - Labs CBC & Chem 7: 01/04/18 04:10 01/05/18 05:00 Laboratory Results - last 24 hr 01/04/18 01/04/18 01/04/18 16:04 21:14 23:38 Sodium Potassium Chloride Carbon Dioxide Anion Gap BUN Creatinine Estimated GFR POC Glucose 232 H 206 H 179 H Random Glucose Calcium 01/05/18 01/05/18 01/05/18 04:41 05:00 07:55 Sodium 142 Potassium 2.7 L* Chloride 103 Carbon Dioxide 29.9 Anion Gap 9 BUN 14 Creatinine 0.77 Estimated GFR 78 L POC Glucose 123 H 167 H Random Glucose 115 H Calcium 8.6 01/05/18 12:05 Sodium Potassium Chloride Carbon Dioxide Anion Gap BUN Creatinine Estimated GFR POC Glucose 181 H Random Glucose Calcium Assessment and Plan - Assessment (1) Necrotizing fasciitis of pelvic region and thigh Code(s): M72.6 - Necrotizing fasciitis Status: Acute Plan: Takeback for surgery on Sunday
[2018-01-05] MEDS: Labetalol HCl Inj 100 MG/20 ML Vial IV.PUSH PRN ×2 (18:29→22:48)
[2018-01-05] MEDS: Potassium Chlor 20 mEq Premix 20 MEQ/100 ML PIGGYBACK IV.SIG PRN ×2 (22:12)
[2018-01-06] MEDS: hydrALAZINE HCl Inj 20 MG/ML Vial IV.PUSH PRN ×2 (00:08→11:06)
[2018-01-06] MEDS: fentaNYL 10 mcg/mL Premix Drip 2,500 MCG/250 ML BAG IV.SIG PRN ×2 (00:08→18:12)
[2018-01-06] MEDS: Oral Hygiene Kit OROPHARYNG SCH ×3 (00:08→16:21)
[2018-01-06] MEDS: Potassium Chlor 20 mEq Premix 20 MEQ/100 ML PIGGYBACK IV.SIG PRN ×4 (00:09→04:15)
[2018-01-06] MEDS: Insulin NovoLIN Regular Correctional Sugar Inj SQ SCH ×8 (00:45→20:05)
[2018-01-06] MEDS: Albumin Human 25% Inj 100 ML IV.SIG SCH ×2 (01:37→14:15)
[2018-01-06 05:10] LABS: Calcium 8.5 mg/dL (8.5-10.1); Carbon Dioxide 25.5 meq/L (21.0-32.0); Potassium 3.8 meq/L (3.5-5.1)
[2018-01-06] MEDS: Chlorhexidine 0.12% Oral Kit 15 ML UDC OROPHARYNG SCH ×2 (08:06→21:49)
[2018-01-06] MEDS: Famotidine PF Inj 20 MG/2 ML Vial IV.PUSH SCH ×2 (08:07→21:55)
[2018-01-06] MEDS: Enoxaparin Inj 30 MG/0.3 ML Syringe SQ SCH (08:07)
[2018-01-06] MEDS: Potassium Bicarbonate 25 MEQ Effervescent Tablet NG/OG SCH ×2 (08:08→21:55)
[2018-01-06] MEDS: Senna/Docusate Sodium 8.6/50 MG Tablet PO SCH ×2 (08:08→21:48)
[2018-01-06] MEDS: Labetalol HCl Inj 100 MG/20 ML Vial IV.PUSH PRN ×2 (08:11→17:12)
--- NOTE | 2018-01-06 09:34 | P.PNCC ---
Subjective Subjective Remarks/Hospital Course: Note for 01/05/18: This 52-year-old woman with long-standing uncontrolled diabetes mellitus and severe peripheral arterial disease related to a long-term heavy smoking history was found down at her home and initial blood glucose was 610. Her lower back and buttocks was exquisitely tender and a mid line stage IV sacral decubitus was oozing purulent material and inflamed and the surrounding soft tissue. White count was not elevated but 90% neutrophils. Temperature 97 degrees. Moderately encephalopathic though conversant. X-rays revealed no fractures in the pelvis but CAT scan demonstrated extensive subcutaneous air emanating in both directions left and right from the mid sacral region. This is clearly necrotizing fasciitis or some other gas-forming infection and the woman is critically ill. She received vancomycin, Zosyn, and clindamycin antibiotic therapy as quickly as possible and was transferred to the ICU for ongoing resuscitation. Because of worsening hemodynamic stability she required intubation and mechanical ventilation followed by central line placement on arrival to the ICU. Insulin drip infusion was started in the emergency department and glucose had declined into the low 400s. She was not in ketoacidosis but lactic acid was elevated at 3.1. General surgery and orthopedic surgery were consulted for recommendations and it was felt that this woman was too unstable to tolerate an operative procedure immediately. We continue her ongoing resuscitation and trial in the ICU at this stage. 12/16: Following aggressive resuscitation yesterday for the treatment of severe hyperglycemia, septic shock, respiratory failure, metabolic acidosis, acute kidney injury, the patient went to the operating room with an extensive wide debridement bilateral gluteal and left thigh soft tissue and muscle. Primary antibiotic coverage at this point is vancomycin, cefepime, clindamycin. The patient started to make urine late yesterday afternoon and has continued to acceptable output since. Lactic acidosis is 2.0 this morning but metabolic acidosis persists despite bicarb drip. She remains on vasopressor support and hemodynamically unstable. 12/17: s/p debridement of large nec fasc wound. remains in shock today. also very hypoglycemic requiring multiple D50 amps overnight. 12/18: back in worsening shock. vasopressor support higher. required 2L crystalloid overnight and additional 1L and 500cc albumin today. ivc completely flat on bedside echo. LVEF hyperdynamic. no pericardial effusion. spoken with gen surg. plan to go back early to eval for worsening necrosis. fio2 also up to 100% and peep 10- hypoxic, likely early ARDS. 12/19: clinically doing better. still in shock on vasopressors, but requirements are lower and lactate cleared. Cr slowly uptrending. SVV still 19% today and appears to be volume responsive. gen surgery ordered 2 units prbc for falling hgb in the setting of blood loss with surgical intervention yesterday. fio2 improving. glycemic control also improving. 12/20: Markedly impaired oxygenation persists. Still requiring elevated end expiratory pressure. Nutritional support continues but she remains catabolic. It will be difficult to keep up with her nutritional needs. 12/21: Continued severe sepsis requiring vasopressor support and mechanical ventilation. Oxygenation remains impaired and smoldering metabolic acidosis persists. Despite hemodynamic instability the patient's only hope for survival is with infection source control through further debridement. Clearly a greatly increased risk however for any procedure. 12/22: Persistent septic shock course requiring vasopressor support and regular debridement. Good antibiotic coverage but she continues to require adjustment of ventilator, hemodynamic support drugs, antibiotics, intravenous fluids. Her nutritional status was quite depleted on arrival and continues to deteriorate despite adjuvant nutrition. 12/23: Patient continues septic course. She has developed venous clot throughout her left internal jugular subclavian and axillary vein system. Not a candidate for full anticoagulation because of need for frequent surgical debridement. We will pull out the catheter today and placing In the right subclavian route. 12/24 remains critically ill and septic remains on Rj-Synephrine at 50 mcg/kg/ min. WBC count increasing 20 6K today. Antibiotics have been changed by ID. Diflucan added for Talia UTI. Plan for OR today per surgery 12/25: Went to OR yesterday, s/p Incision, drainage with excisional debridement of back, buttock, thigh, and VAC change. Main septic White count increasing 31, 000 today, remains on pressors vasopressin and Rj-Synephrine. 12/26: Remains critical remains on vasopressin to maintain blood pressure and map above 65, currently off Rj-Synephrine. Remains severely fluid overloaded approximately 20 kg up. Despite pressor use will start IV diuretics to achieve negative fluid balance 12/27: Intubated sedated but more awake follows some commands. Hemoglobin down to 6.4, 2 g dropped, receiving 2 units of PRBC. No obvious bleeding noted. Currently had been weaned off the pressors. Or planned for tomorrow again 12/28: OR today for wound VAC change and I&D, possible tracheostomy. Potassium is 2.6 getting replaced. Hemoglobin stable. Remains off pressors. Urine output almost 8 L with forced diuresis 12/29: Status post OR for wound VAC change in tracheostomy yesterday. Getting for his diuresis urine output more than 4 L in 24 hours. Remains intubated sedated intermittently follows commands. Plan for I&D wound VAC change again on Saturday 12/30: Remains intubated sedated more stable. Urine output remains excellent with diuresis. Plan for OR in a.m. for further I&D and VAC change 12/31: Patient remains intubated plan for OR today with Dr. Muir for further I&D and wound VAC change. Making urine more than 4 L in 24 hours with diuresis. Getting closer to admission weight. Potassium 3.3 getting replacement 01/01: Remains intubated sedated failing CPAP due to low tidal volumes. Status post OR yesterday for the I&D tomorrow planned by general surgery. Urine output 3 L in 24 hours 01/02: Potassium being replaced. Ready for OR today. Return from the OR with stable hemodynamics on mechanical ventilation. 01/03: Attempted spontaneous breathing trials today and converted to T piece. We will continue this method of weaning. Nutrition infusing and well- tolerated. Severity of wound will require a lengthy hospitalization. 01/04: Nasogastric tube is out. She is much more alert and we will try a swallow evaluation before replacing. Contraction alkalosis is developing with diuretics, will add a carbonic anhydrase inhibitor. 01/05: Breathing comfortably on T-piece. Failed swallow eval. Will need to replace nasogastric tube or Dobbhoff for nutrition. Objective Vital Signs / I&O: Vital Signs 01/05/18 09:50 01/05/18 10:00 01/05/18 10:02 Temperature Pulse Rate 121 H 109 H Respiratory Rate 20 18 Blood Pressure 180/83 H Pulse Oximetry 100 100 100 01/05/18 10:20 01/05/18 10:50 01/05/18 11:00 Temperature Pulse Rate 104 H 109 H 107 H Respiratory Rate 15 19 16 Blood Pressure 163/72 H 163/73 H Pulse Oximetry 100 100 100 01/05/18 11:20 01/05/18 11:50 01/05/18 12:00 Temperature 98.2 F Pulse Rate 111 H 110 H 105 H Respiratory Rate 19 19 14 Blood Pressure 166/76 H 163/74 H Pulse Oximetry 100 100 100 01/05/18 12:20 01/05/18 12:50 01/05/18 13:00 Temperature Pulse Rate 106 H 107 H 106 H Respiratory Rate 16 17 15 Blood Pressure 160/72 H 140/63 Pulse Oximetry 100 100 100 01/05/18 13:20 01/05/18 13:50 01/05/18 14:00 Temperature Pulse Rate 108 H 124 H 126 H Respiratory Rate 15 24 24 Blood Pressure 133/62 144/67 H Pulse Oximetry 100 100 100 01/05/18 14:20 01/05/18 14:50 01/05/18 15:00 Temperature Pulse Rate 129 H 120 H 129 H Respiratory Rate 24 25 H 22 Blood Pressure 149/70 H 154/70 H Pulse Oximetry 93 L 100 100 01/05/18 15:20 01/05/18 15:50 01/05/18 16:00 Temperature 97.5 F L Pulse Rate 116 H 130 H 126 H Respiratory Rate 20 24 24 Blood Pressure 155/71 H 165/77 H 152/88 H Pulse Oximetry 100 100 100 01/05/18 16:20 01/05/18 16:50 01/05/18 17:00 Temperature Pulse Rate 121 H 123 H 128 H Respiratory Rate 22 22 24 Blood Pressure 158/74 H Pulse Oximetry 100 100 100 01/05/18 17:20 01/05/18 17:50 01/05/18 18:00 Temperature Pulse Rate 118 H 125 H 115 H Respiratory Rate 22 22 21 Blood Pressure 154/84 H 149/72 H Pulse Oximetry 100 100 100 01/05/18 20:00 01/05/18 20:50 01/06/18 00:00 Temperature 98.4 F 99.0 F Pulse Rate 97 H 94 H Respiratory Rate 29 H 77 H Blood Pressure 172/77 H 184/81 H Pulse Oximetry 100 100 100 01/06/18 02:24 01/06/18 04:00 01/06/18 07:00 Temperature 99.2 F Pulse Rate 95 H Respiratory Rate 47 H 24 Blood Pressure 159/71 H Pulse Oximetry 100 100 99 01/06/18 07:20 01/06/18 07:50 01/06/18 08:00 Temperature 98.4 F Pulse Rate 98 H 96 H 107 H Respiratory Rate 26 H 24 24 Blood Pressure 168/76 H 174/78 H 169/75 H Pulse Oximetry 99 100 100 01/06/18 08:11 01/06/18 08:20 01/06/18 08:50 Temperature Pulse Rate 91 H 101 H Respiratory Rate 22 23 Blood Pressure 173/72 H Pulse Oximetry 98 100 100 01/06/18 09:00 01/06/18 09:20 Temperature Pulse Rate 95 H 95 H Respiratory Rate 18 16 Blood Pressure 175/72 H Pulse Oximetry 100 100 Intake & Output 01/05/18 01/06/18 01/06/18 18:59 06:59 18:59 Intake Total 600 / 600 589 / 589 100 / 100 Output Total 1175 / 1175 1025 / 1025 Balance -575 / -575 -436 / -436 100 / 100 Weight 59 kg Intake: IV 600 / 600 589 / 589 100 / 100 Flexbumin 25% Inj 100 ML @ 60 200 / 200 100 / 100 mls/hr IV.SIG Q12H [facility] Rx#: [id number] Diflucan 400 mg Premix Bag 200 200 / 200 ML @ 100 mls/hr IV.SIG Q24H [facility] Rx#:[id number] KCl 20 mEq Premix Inj 20 meq In 300 / 300 100 / 100 100 ml @ 50 mls/hr IV.SIG Q2H PRN Rx#:[id number] KCl 40 mEq Premix Inj 40 meq In 200 / 200 100 ml @ 25 mls/hr IV.SIG Q2H PRN Rx#:[id number] fentaNYL 10 mcg/mL Premix Drip 189 / 189 2,500 mcg In 250 ml @ 50 MCG/HR 5 mls/hr IV.SIG TITRATE PRN Rx #:[id number] Output: Stool 50 / 50 75 / 75 Urine Amount (Catheter) 875 / 875 850 / 850 1 875 / 875 850 / 850 Wound Vac Amount 250 / 250 100 / 100 Posterior Sacrum 250 / 250 100 / 100 Other: Mode Setting Posterior Sacrum Continuous Continuous Continuous Date of Last Bowel Movement 01/05/18 01/06/18 01/06/18 Result Diagrams: 01/04/18 04:10 01/06/18 04:30 Objective Remarks: General: Ill-appearing middle-aged woman, intubated via tracheostomy. Head: Atraumatic, edentulous, mouth clean Neck: Supple, trach site clean, dry. Lungs: Few scattered rhonchi persist, air movement good bilaterally Heart: Regular rate rate and regular rhythm. no JVD. Abdomen: Soft, no guarding, no peritoneal irritation. Bowel sounds are active. Back: Wound VAC remains in place over lower lumbar region. Extremities: Warm, well perfused, status post below-knee amputation right side, necrotic ulceration over several toes left foot. Persistent generalized edema involving the left arm. Neurological: Tracheostomy, moves 4 limbs to stimulation. Pupils responsive. Follows commands x4. Tracks with eyes. Assessment and Plan - Problem List (1) Septic shock with acute organ dysfunction due to anaerobic bacteria Code(s): A41.4 - Sepsis due to anaerobes; R65.21 - Severe sepsis with septic shock Status: Acute (2) Acute respiratory failure Code(s): J96.00 - Acute respiratory failure, unspecified whether with hypoxia or hypercapnia Status: Acute (3) Necrotizing fasciitis Code(s): M72.6 - Necrotizing fasciitis Status: Acute (4) Type 2 diabetes mellitus with hyperosmolar nonketotic hyperglycemia Code(s): E11.01 - Type 2 diabetes mellitus with hyperosmolarity with coma Status: Acute (5) MARIO (acute kidney injury) Code(s): N17.9 - Acute kidney failure, unspecified Status: Acute (6) Lactic acidosis Code(s): E87.2 - Acidosis Status: Acute - Assessment and Plan Plan: Assessment: 52yF with large necrotizing soft tissue infection of the lower back and sacrum complicated by septic shock and multiorgan dysfunction. OR 01/02, then for further I&D, wound VAC change. Plan: Neurological Acute metabolic encephalopathy -Sedation with propofol, Analgesia with moderate fentanyl -Encephalopathy improving - Following commands x4 -Lighten RASS to 0 Cardiovascular Septic Shock- improving Myocardial dysfunction secondary to septic shock Fluid overload - Currently remains off all pressors - Received 2 units PRBC 12/27/2017 for hemoglobin of 6.4. Currently hemoglobin stable -Continue potassium replacement. Follow acid-base balance closely -Continue twice daily diuretic therapy Respiratory Acute hypoxic and hypercarbic respiratory failure- persistent - Intubation and mechanical ventilation, Bronchodilators. - HOB elevated, vent bundle. wean fio2 for goal spo2 > 90% - CPAP trial daily, failed today due to low tidal volumes - s/p Trach in OR 12/28/17. -T piece trials are successful Endocrinology Diabetes Severe hypoglycemia - Med scale SSI. - Follow potassium and magnesium closely Hematology/Infectious Disease Septic Shock Necrotizing soft tissue infection - Follow white count and platelet count closely. - Continue daptomycin and Zosyn. Diflucan for fungal coverage. - OR per general surgery, s/p I&D and wound VAC change on 12/31/2017, 01/02/18, etc GI Acute protein calorie malnutrition- severe - prealbumin 5 on 12/18. severely malnourished. - daily bmp, mg, phos - Tube feeds infusing, tolerated - Follow prealbumin weekly Acute kidney injury - Tristan required for hourly urine output and to protect perineal region HEME Left upper extremity DVT - DVT left internal jugular, subclavian, axillary and distal arm veins. - Cannot anticoagulate secondary to blood loss anemia requiring blood transfusion, frequent surgeries Prophylaxis - Pepcid for GI ulcer prophylaxis - SCDs for DVT prophylaxis - Hold chemical DVT prophylaxis until ongoing surgical decisions regarding further debridement are made Lines: Left subclavian central venous line placed 12/15, discontinued 12/23. Right subclavian central venous line placed 12/23, change now Overall impression: This woman was initially critically ill and in septic shock with necrotizing fasciitis emanating from a deep chronic sacral decubitus ulcer. Peripheral perfusion and urine output remains acceptable. Still requiring multiple or trips for I&D and VAC changes. Family request continued aggressive care. Nutritional support is a mainstay of therapy now. Change outlines.
--- NOTE | 2018-01-06 09:40 | P.PNGS ---
Subjective Patient reports: pain is less (no acute issues) Physical Exam Vital signs: Vital Signs 01/05/18 09:50 01/05/18 10:00 01/05/18 10:02 Temperature Pulse Rate 121 H 109 H Respiratory Rate 20 18 Blood Pressure 180/83 H Pulse Oximetry 100 100 100 01/05/18 10:20 01/05/18 10:50 01/05/18 11:00 Temperature Pulse Rate 104 H 109 H 107 H Respiratory Rate 15 19 16 Blood Pressure 163/72 H 163/73 H Pulse Oximetry 100 100 100 01/05/18 11:20 01/05/18 11:50 01/05/18 12:00 Temperature 98.2 F Pulse Rate 111 H 110 H 105 H Respiratory Rate 19 19 14 Blood Pressure 166/76 H 163/74 H Pulse Oximetry 100 100 100 01/05/18 12:20 01/05/18 12:50 01/05/18 13:00 Temperature Pulse Rate 106 H 107 H 106 H Respiratory Rate 16 17 15 Blood Pressure 160/72 H 140/63 Pulse Oximetry 100 100 100 01/05/18 13:20 01/05/18 13:50 01/05/18 14:00 Temperature Pulse Rate 108 H 124 H 126 H Respiratory Rate 15 24 24 Blood Pressure 133/62 144/67 H Pulse Oximetry 100 100 100 01/05/18 14:20 01/05/18 14:50 01/05/18 15:00 Temperature Pulse Rate 129 H 120 H 129 H Respiratory Rate 24 25 H 22 Blood Pressure 149/70 H 154/70 H Pulse Oximetry 93 L 100 100 01/05/18 15:20 01/05/18 15:50 01/05/18 16:00 Temperature 97.5 F L Pulse Rate 116 H 130 H 126 H Respiratory Rate 20 24 24 Blood Pressure 155/71 H 165/77 H 152/88 H Pulse Oximetry 100 100 100 01/05/18 16:20 01/05/18 16:50 01/05/18 17:00 Temperature Pulse Rate 121 H 123 H 128 H Respiratory Rate 22 22 24 Blood Pressure 158/74 H Pulse Oximetry 100 100 100 01/05/18 17:20 01/05/18 17:50 01/05/18 18:00 Temperature Pulse Rate 118 H 125 H 115 H Respiratory Rate 22 22 21 Blood Pressure 154/84 H 149/72 H Pulse Oximetry 100 100 100 01/05/18 20:00 01/05/18 20:50 01/06/18 00:00 Temperature 98.4 F 99.0 F Pulse Rate 97 H 94 H Respiratory Rate 29 H 77 H Blood Pressure 172/77 H 184/81 H Pulse Oximetry 100 100 100 01/06/18 02:24 01/06/18 04:00 01/06/18 07:00 Temperature 99.2 F Pulse Rate 95 H Respiratory Rate 47 H 24 Blood Pressure 159/71 H Pulse Oximetry 100 100 99 01/06/18 07:20 01/06/18 07:50 01/06/18 08:00 Temperature 98.4 F Pulse Rate 98 H 96 H 107 H Respiratory Rate 26 H 24 24 Blood Pressure 168/76 H 174/78 H 169/75 H Pulse Oximetry 99 100 100 01/06/18 08:11 01/06/18 08:20 01/06/18 08:50 Temperature Pulse Rate 91 H 101 H Respiratory Rate 22 23 Blood Pressure 173/72 H Pulse Oximetry 98 100 100 01/06/18 09:00 01/06/18 09:20 Temperature Pulse Rate 95 H 95 H Respiratory Rate 18 16 Blood Pressure 175/72 H Pulse Oximetry 100 100 Intake & Output 01/05/18 01/06/18 01/06/18 18:59 06:59 18:59 Intake Total 600 / 600 589 / 589 100 / 100 Output Total 1175 / 1175 1025 / 1025 Balance -575 / -575 -436 / -436 100 / 100 Weight 59 kg Intake: IV 600 / 600 589 / 589 100 / 100 Flexbumin 25% Inj 100 ML @ 60 200 / 200 100 / 100 mls/hr IV.SIG Q12H RICARDO Rx#: [id number] Diflucan 400 mg Premix Bag 200 200 / 200 ML @ 100 mls/hr IV.SIG Q24H RICARDO Rx#:[id number] KCl 20 mEq Premix Inj 20 meq In 300 / 300 100 / 100 100 ml @ 50 mls/hr IV.SIG Q2H PRN Rx#:[id number] KCl 40 mEq Premix Inj 40 meq In 200 / 200 100 ml @ 25 mls/hr IV.SIG Q2H PRN Rx#:[id number] fentaNYL 10 mcg/mL Premix Drip 189 / 189 2,500 mcg In 250 ml @ 50 MCG/HR 5 mls/hr IV.SIG TITRATE PRN Rx #:[id number] Output: Stool 50 / 50 75 / 75 Urine Amount (Catheter) 875 / 875 850 / 850 1 875 / 875 850 / 850 Wound Vac Amount 250 / 250 100 / 100 Posterior Sacrum 250 / 250 100 / 100 Other: Mode Setting Posterior Sacrum Continuous Continuous Continuous Date of Last Bowel Movement 01/05/18 01/06/18 01/06/18 - Routine Extremities Exam Present: edema (good seal) - Urinary Catheter Management 1 Cath placed during this visit: yes Reason for continuing: Severe pressure ulcer/wound Insertion date: 12/15/17 Results - Labs 01/04/18 04:10 01/06/18 04:30 Laboratory Results - last 24 hr 01/05/18 01/05/18 01/05/18 12:05 16:11 20:00 Sodium Potassium 3.1 L Chloride Carbon Dioxide Anion Gap BUN Creatinine Estimated GFR POC Glucose 181 H 160 H Random Glucose Calcium 01/05/18 01/06/18 01/06/18 20:07 00:21 04:26 Sodium Potassium Chloride Carbon Dioxide Anion Gap BUN Creatinine Estimated GFR POC Glucose 180 H 200 H 158 H Random Glucose Calcium 01/06/18 01/06/18 04:30 08:01 Sodium 144 Potassium 3.8 Chloride 109 H Carbon Dioxide 25.5 Anion Gap 10 BUN 13 Creatinine 0.76 Estimated GFR 80 L POC Glucose 162 H Random Glucose 151 H Calcium 8.5 - Imaging Imaging: ITS Impressions Femur X-Ray 12/15/17 07:05 CONCLUSION: No fracture is identified. There is extensive soft tissue air in the right gluteal region and extending into the proximal and mid posterior thigh. The soft tissue air suggests an open wound. Pelvis X-Ray 12/15/17 07:05 CONCLUSION: No fracture is identified. However, there is extensive soft tissue air in the left gluteal region and left proximal thigh. Pelvis CT 12/15/17 07:52 CONCLUSION: 1. No fracture is identified. 2. Extensive subcutaneous and soft tissue gas bilaterally, left greater than right. It is most severe in the left gluteal region and extends into the proximal posterior thigh. The soft tissue air dissects through the gluteal musculature. There is adjacent subcutaneous edema. Foot X-Ray 12/18/17 00:00 CONCLUSION: Remote small avulsion fracture at the fifth toe. No acute bony abnormality. Venous Doppler Study 12/22/17 00:00 CONCLUSION: Extensive deep vein thrombosis of the left upper extremity. Chest X-Ray 12/31/17 06:00 CONCLUSION: 1. Tracheostomy tube is now seen. Endotracheal tube is no longer seen. 2. Bilateral pulmonary opacity is again seen with interval increase in the right lower lung zone opacity. No change in the left. Assessment and Plan - Assessment (1) Necrotizing fasciitis of pelvic region and thigh Code(s): M72.6 - Necrotizing fasciitis Status: Acute Plan: 52yo female with multiple medical comorbidities, s/p debridement of nec fasc -Remains critically ill - +rebekah -Plan for vac change likely sunday -Obtain consents -Continue TF for today;onc dht placement -ID following
[2018-01-06] MEDS: Dextrose 5%/Lactated Ringer's 1,000 ML IV.CONT SCH (12:06)
--- NOTE | 2018-01-06 15:56 | XR ---
EXAM DATE: 01/06/2018 3:52 PM EST AGE/SEX: 52 years / Female INDICATIONS: Dobhoff tube placement. CLINICAL DATA: This is the patient's subsequent encounter. Patient reports that signs and symptoms h ave been present for 4 - 6 days and indicates a pain score of Nonresponsive. MEDICAL/SURGICAL HISTORY: Non-responsive. Non-responsive. COMPARISON: No prior exams available for comparison. FINDINGS: The Dobbhoff tube has its tip in the proximal stomach. Degenerative changes are noted throughout the thoracolumbar spine. Tracheostomy tube and right subclavian central line are in good positions. CONCLUSION: Dobbhoff tube has its tip in the proximal stomach. Electronically signed by: Derrick Kraft MD 01/06/2018 3:54 PM EST
[2018-01-07] MEDS: Insulin NovoLIN Regular Correctional Sugar Inj SQ SCH ×6 (00:30→22:05)
[2018-01-07] MEDS: Oral Hygiene Kit OROPHARYNG SCH ×6 (01:26→15:40)
[2018-01-07] MEDS: Albumin Human 25% Inj 100 ML IV.SIG SCH ×2 (01:39→13:13)
[2018-01-07 05:39] LABS: Calcium 8.7 mg/dL (8.5-10.1); Carbon Dioxide 24.8 meq/L (21.0-32.0)
[2018-01-07 05:41] LABS: Potassium 2.6 meq/L (3.5-5.1)
[2018-01-07] MEDS: Potassium Chlor 20 mEq Premix 20 MEQ/100 ML PIGGYBACK IV.SIG PRN ×4 (09:24→15:41)
[2018-01-07] MEDS: Famotidine PF Inj 20 MG/2 ML Vial IV.PUSH SCH ×2 (09:24→22:06)
[2018-01-07] MEDS: Chlorhexidine 0.12% Oral Kit 15 ML UDC OROPHARYNG SCH ×2 (09:24→22:05)
[2018-01-07] MEDS: Senna/Docusate Sodium 8.6/50 MG Tablet PO SCH ×2 (09:24→22:06)
[2018-01-07] MEDS: Potassium Bicarbonate 25 MEQ Effervescent Tablet NG/OG SCH ×2 (09:24→22:05)
[2018-01-07] MEDS: Enoxaparin Inj 30 MG/0.3 ML Syringe SQ SCH (09:25)
[2018-01-07] MEDS: hydrALAZINE HCl Inj 20 MG/ML Vial IV.PUSH PRN ×2 (09:57→15:17)
[2018-01-07] MEDS: Dextrose 5%/Lactated Ringer's 1,000 ML IV.CONT SCH (12:22)
[2018-01-07] MEDS: Labetalol HCl Inj 100 MG/20 ML Vial IV.PUSH PRN (13:13)
--- NOTE | 2018-01-07 13:21 | P.PNCC ---
Subjective Subjective Remarks/Hospital Course: Note for 01/05/18: This 52-year-old woman with long-standing uncontrolled diabetes mellitus and severe peripheral arterial disease related to a long-term heavy smoking history was found down at her home and initial blood glucose was 610. Her lower back and buttocks was exquisitely tender and a mid line stage IV sacral decubitus was oozing purulent material and inflamed and the surrounding soft tissue. White count was not elevated but 90% neutrophils. Temperature 97 degrees. Moderately encephalopathic though conversant. X-rays revealed no fractures in the pelvis but CAT scan demonstrated extensive subcutaneous air emanating in both directions left and right from the mid sacral region. This is clearly necrotizing fasciitis or some other gas-forming infection and the woman is critically ill. She received vancomycin, Zosyn, and clindamycin antibiotic therapy as quickly as possible and was transferred to the ICU for ongoing resuscitation. Because of worsening hemodynamic stability she required intubation and mechanical ventilation followed by central line placement on arrival to the ICU. Insulin drip infusion was started in the emergency department and glucose had declined into the low 400s. She was not in ketoacidosis but lactic acid was elevated at 3.1. General surgery and orthopedic surgery were consulted for recommendations and it was felt that this woman was too unstable to tolerate an operative procedure immediately. We continue her ongoing resuscitation and trial in the ICU at this stage. 12/16: Following aggressive resuscitation yesterday for the treatment of severe hyperglycemia, septic shock, respiratory failure, metabolic acidosis, acute kidney injury, the patient went to the operating room with an extensive wide debridement bilateral gluteal and left thigh soft tissue and muscle. Primary antibiotic coverage at this point is vancomycin, cefepime, clindamycin. The patient started to make urine late yesterday afternoon and has continued to acceptable output since. Lactic acidosis is 2.0 this morning but metabolic acidosis persists despite bicarb drip. She remains on vasopressor support and hemodynamically unstable. 12/17: s/p debridement of large nec fasc wound. remains in shock today. also very hypoglycemic requiring multiple D50 amps overnight. 12/18: back in worsening shock. vasopressor support higher. required 2L crystalloid overnight and additional 1L and 500cc albumin today. ivc completely flat on bedside echo. LVEF hyperdynamic. no pericardial effusion. spoken with gen surg. plan to go back early to eval for worsening necrosis. fio2 also up to 100% and peep 10- hypoxic, likely early ARDS. 12/19: clinically doing better. still in shock on vasopressors, but requirements are lower and lactate cleared. Cr slowly uptrending. SVV still 19% today and appears to be volume responsive. gen surgery ordered 2 units prbc for falling hgb in the setting of blood loss with surgical intervention yesterday. fio2 improving. glycemic control also improving. 12/20: Markedly impaired oxygenation persists. Still requiring elevated end expiratory pressure. Nutritional support continues but she remains catabolic. It will be difficult to keep up with her nutritional needs. 12/21: Continued severe sepsis requiring vasopressor support and mechanical ventilation. Oxygenation remains impaired and smoldering metabolic acidosis persists. Despite hemodynamic instability the patient's only hope for survival is with infection source control through further debridement. Clearly a greatly increased risk however for any procedure. 12/22: Persistent septic shock course requiring vasopressor support and regular debridement. Good antibiotic coverage but she continues to require adjustment of ventilator, hemodynamic support drugs, antibiotics, intravenous fluids. Her nutritional status was quite depleted on arrival and continues to deteriorate despite adjuvant nutrition. 12/23: Patient continues septic course. She has developed venous clot throughout her left internal jugular subclavian and axillary vein system. Not a candidate for full anticoagulation because of need for frequent surgical debridement. We will pull out the catheter today and placing In the right subclavian route. 12/24 remains critically ill and septic remains on Rj-Synephrine at 50 mcg/kg/ min. WBC count increasing 20 6K today. Antibiotics have been changed by ID. Diflucan added for Talia UTI. Plan for OR today per surgery 12/25: Went to OR yesterday, s/p Incision, drainage with excisional debridement of back, buttock, thigh, and VAC change. Main septic White count increasing 31, 000 today, remains on pressors vasopressin and Rj-Synephrine. 12/26: Remains critical remains on vasopressin to maintain blood pressure and map above 65, currently off Rj-Synephrine. Remains severely fluid overloaded approximately 20 kg up. Despite pressor use will start IV diuretics to achieve negative fluid balance 12/27: Intubated sedated but more awake follows some commands. Hemoglobin down to 6.4, 2 g dropped, receiving 2 units of PRBC. No obvious bleeding noted. Currently had been weaned off the pressors. Or planned for tomorrow again 12/28: OR today for wound VAC change and I&D, possible tracheostomy. Potassium is 2.6 getting replaced. Hemoglobin stable. Remains off pressors. Urine output almost 8 L with forced diuresis 12/29: Status post OR for wound VAC change in tracheostomy yesterday. Getting for his diuresis urine output more than 4 L in 24 hours. Remains intubated sedated intermittently follows commands. Plan for I&D wound VAC change again on Saturday 12/30: Remains intubated sedated more stable. Urine output remains excellent with diuresis. Plan for OR in a.m. for further I&D and VAC change 12/31: Patient remains intubated plan for OR today with Dr. Muir for further I&D and wound VAC change. Making urine more than 4 L in 24 hours with diuresis. Getting closer to admission weight. Potassium 3.3 getting replacement 01/01: Remains intubated sedated failing CPAP due to low tidal volumes. Status post OR yesterday for the I&D tomorrow planned by general surgery. Urine output 3 L in 24 hours 01/02: Potassium being replaced. Ready for OR today. Return from the OR with stable hemodynamics on mechanical ventilation. 01/03: Attempted spontaneous breathing trials today and converted to T piece. We will continue this method of weaning. Nutrition infusing and well- tolerated. Severity of wound will require a lengthy hospitalization. 01/04: Nasogastric tube is out. She is much more alert and we will try a swallow evaluation before replacing. Contraction alkalosis is developing with diuretics, will add a carbonic anhydrase inhibitor. 01/05: Breathing comfortably on T-piece. Failed swallow eval. Will need to replace nasogastric tube or Dobbhoff for nutrition. 01/06: Alert interactive. Failed swallow eval possibly due to the distortion of the trach cuff. Continue feeding through Dobbhoff tube. Patient is stable to go to floor now. Fentanyl drip converted to fentanyl patch. Adequately diuresed of post edema, discontinue diuretics and replace potassium. After K replaced add lisinopril now that GFR back to normal. Objective Vital Signs / I&O: Vital Signs 01/06/18 13:20 01/06/18 13:50 01/06/18 14:00 Temperature Pulse Rate 102 H 100 H 106 H Respiratory Rate 18 19 18 Blood Pressure 156/68 H 160/69 H Pulse Oximetry 100 100 100 01/06/18 14:20 01/06/18 14:50 01/06/18 15:00 Temperature Pulse Rate 111 H 105 H 106 H Respiratory Rate 22 24 22 Blood Pressure 163/86 H 170/78 H Pulse Oximetry 100 100 100 01/06/18 15:20 01/06/18 15:50 01/06/18 16:00 Temperature 98.5 F Pulse Rate 111 H 102 H 101 H Respiratory Rate 24 22 20 Blood Pressure 175/86 H 178/79 H 183/79 H Pulse Oximetry 100 100 100 01/06/18 16:20 01/06/18 20:00 01/06/18 21:09 Temperature 98.5 F Pulse Rate 100 H 96 H Respiratory Rate 24 20 Blood Pressure 195/84 H Pulse Oximetry 100 100 100 01/07/18 00:00 01/07/18 00:09 01/07/18 04:00 Temperature 98.4 F 98.5 F Pulse Rate 110 H 84 Respiratory Rate 20 20 Blood Pressure 177/79 H 179/78 H Pulse Oximetry 100 100 100 01/07/18 08:00 01/07/18 09:12 01/07/18 12:00 Temperature 98.6 F 98.7 F Pulse Rate 108 H 122 H Respiratory Rate 22 26 H Blood Pressure 191/83 H 179/81 H Pulse Oximetry 100 100 100 Intake & Output 01/06/18 01/07/18 01/07/18 18:59 06:59 18:59 Intake Total 650 / 650 336 / 336 100 / 100 Output Total 1175 / 1175 850 / 850 Balance -525 / -525 -514 / -514 100 / 100 Weight 63.3 kg Intake: IV 650 / 650 100 / 100 100 / 100 Flexbumin 25% Inj 100 ML @ 60 100 / 100 100 / 100 mls/hr IV.SIG Q12H RICARDO Rx#: [id number] Diflucan 400 mg Premix Bag 200 200 / 200 ML @ 100 mls/hr IV.SIG Q24H RICARDO Rx#:[id number] KCl 20 mEq Premix Inj 20 meq In 100 / 100 100 / 100 100 ml @ 50 mls/hr IV.SIG Q2H PRN Rx#:[id number] fentaNYL 10 mcg/mL Premix Drip 250 / 250 2,500 mcg In 250 ml @ 50 MCG/HR 5 mls/hr IV.SIG TITRATE PRN Rx #:[id number] Oral 0 / 0 Tube Feeding 236 / 236 Output: Urine 800 / 800 Stool 75 / 75 50 / 50 Urine Amount (Catheter) 925 / 925 1 925 / 925 Wound Vac Amount 175 / 175 Posterior Sacrum 175 / 175 Other: Mode Setting Posterior Sacrum Continuous Continuous Continuous Date of Last Bowel Movement 01/06/18 01/07/18 01/07/18 Result Diagrams: 01/04/18 04:10 01/07/18 04:33 Objective Remarks: General: Ill-appearing middle-aged woman, tracheostomy and T-piece Head: Atraumatic, edentulous, mouth clean Neck: Supple, trach site clean, dry. Lungs: Few scattered rhonchi persist, air movement good bilaterally Heart: Regular rate rate and regular rhythm. no JVD. Abdomen: Soft, no guarding, no peritoneal irritation. Bowel sounds are active. Back: Wound VAC remains in place over lower lumbar region. Extremities: Warm, well perfused, status post below-knee amputation right side, necrotic ulceration over several toes left foot. Persistent generalized edema involving the left arm. Neurological: Tracheostomy, moves 4 limbs to stimulation. Pupils responsive. Follows commands x4. Tracks with eyes. Assessment and Plan - Problem List (1) Septic shock with acute organ dysfunction due to anaerobic bacteria Code(s): A41.4 - Sepsis due to anaerobes; R65.21 - Severe sepsis with septic shock Status: Acute (2) Acute respiratory failure Code(s): J96.00 - Acute respiratory failure, unspecified whether with hypoxia or hypercapnia Status: Acute (3) Necrotizing fasciitis Code(s): M72.6 - Necrotizing fasciitis Status: Acute (4) Type 2 diabetes mellitus with hyperosmolar nonketotic hyperglycemia Code(s): E11.01 - Type 2 diabetes mellitus with hyperosmolarity with coma Status: Acute (5) MARIO (acute kidney injury) Code(s): N17.9 - Acute kidney failure, unspecified Status: Acute (6) Lactic acidosis Code(s): E87.2 - Acidosis Status: Acute - Assessment and Plan Plan: Assessment: 52yF with large necrotizing soft tissue infection of the lower back and sacrum complicated by septic shock and multiorgan dysfunction. OR 01/08, then for further I&D, wound VAC change. Plan: Neurological Acute metabolic encephalopathy Resolved Cardiovascular Septic Shock- improving Myocardial dysfunction secondary to septic shock Fluid overload Resolved Respiratory Acute hypoxic and hypercarbic respiratory failure- persistent - s/p Trach in OR 12/28/17. -T piece trials are successful Endocrinology Diabetes Severe hypoglycemia - Med scale SSI. - Follow potassium and magnesium closely Hematology/Infectious Disease Septic Shock Necrotizing soft tissue infection - Follow white count and platelet count closely. - Continue daptomycin and Zosyn. Diflucan for fungal coverage. -2 OR for further debridement Sunday by general surgery GI Acute protein calorie malnutrition- severe - prealbumin 5 on 12/18. severely malnourished. - daily bmp, mg, phos - Tube feeds infusing, tolerated - Follow prealbumin weekly Acute kidney injury - Tristan required for hourly urine output and to protect perineal region HEME Left upper extremity DVT - DVT left internal jugular, subclavian, axillary and distal arm veins. - Cannot anticoagulate secondary to blood loss anemia requiring blood transfusion, frequent surgeries Prophylaxis - Pepcid for GI ulcer prophylaxis - SCDs for DVT prophylaxis - Hold chemical DVT prophylaxis until ongoing surgical decisions regarding further debridement are made Lines: Left subclavian central venous line placed 12/15, discontinued 12/23. Right subclavian central venous line placed 12/23, DC'd today 01/06 Overall impression: This woman was initially critically ill and in septic shock with necrotizing fasciitis emanating from a deep chronic sacral decubitus ulcer. Peripheral perfusion and urine output remains acceptable. Still requiring multiple or trips for I&D and VAC changes. Family request continued aggressive care. Nutritional support is a mainstay of therapy now. Remains alert and interactive.
[2018-01-07] MEDS: Lisinopril 5 MG Tablet PO SCH (17:44)
[2018-01-07] MEDS: Metoprolol Tartrate 50 MG Tablet PO SCH ×2 (17:44→22:06)
[2018-01-07] MEDS: hydrALAZINE 50 MG Tablet PO SCH (17:44)
[2018-01-08] MEDS: Insulin NovoLIN Regular Correctional Sugar Inj SQ SCH ×6 (00:27→21:47)
[2018-01-08] MEDS: Oral Hygiene Kit OROPHARYNG SCH ×4 (00:28→17:52)
--- NOTE | 2018-01-08 01:01 | XR ---
EXAM DATE: 01/08/2018 12:37 AM EST AGE/SEX: 52 years / Female INDICATIONS: Milo placement. CLINICAL DATA: This is the patient's subsequent encounter. Patient reports that signs and symptoms h ave been present for 3 weeks and indicates a pain score of Nonresponsive. MEDICAL/SURGICAL HISTORY: Diabetes mellitus type II. Peripheral artery disease. Hepatitis C. Benign hypertension. Smoker. Necrotizing fasciitis. section. Central line placement. COMPARISON: No prior exams available for comparison. FINDINGS: Single AP supine view of the abdomen. Scattered gas in the small bowel and colon. Mildly distended ai r-filled stomach. Feeding tube is in place with the tip in the distal stomach. CONCLUSION: Feeding tube tip is in the region of the distal stomach Electronically signed by: Luther Cronin MD 01/08/2018 1:00 AM EST
[2018-01-08] MEDS: Albumin Human 25% Inj 100 ML IV.SIG SCH ×2 (02:21→13:46)
[2018-01-08] MEDS ORDERED: Sodium Chlor 0.9% Inj 500 ML IV.CONT ONE (04:00)
[2018-01-08] MEDS ORDERED: Chlorhexidine Gluconate 2% 1 Pack (2 Cloths) TOPICAL ONE (04:00)
--- NOTE | 2018-01-08 06:09 | P.PNGS ---
Subjective Patient reports: feels better (improving) Physical Exam Vital signs: Vital Signs 01/07/18 08:00 01/07/18 09:12 01/07/18 12:00 Temperature 98.6 F 98.7 F Pulse Rate 106 H 122 H Respiratory Rate 22 26 H Blood Pressure 191/83 H 179/81 H Pulse Oximetry 100 100 100 01/07/18 16:00 01/07/18 20:00 01/07/18 20:57 Temperature 98.3 F 98.4 F Pulse Rate 110 H 104 H Respiratory Rate 25 H 18 Blood Pressure 190/71 H 142/80 H Pulse Oximetry 100 96 98 01/08/18 00:00 01/08/18 04:00 Temperature 98.3 F 98.7 F Pulse Rate 104 H 95 H Respiratory Rate 18 18 Blood Pressure 159/77 H 124/59 L Pulse Oximetry 97 98 Intake & Output 01/07/18 01/07/18 01/08/18 06:59 18:59 06:59 Intake Total 336 / 336 1517 / 1517 100 / 100 Output Total 850 / 850 2075 / 2075 200 / 200 Balance -514 / -514 -558 / -558 -100 / -100 Weight 63.3 kg Intake: IV 100 / 100 1038 / 1038 100 / 100 D5W/LR Inj 1,000 ML @ 40 mls/hr 280 / 280 IV.CONT .Q24H RICARDO Rx#:[id number] Flexbumin 25% Inj 100 ML @ 60 100 / 100 100 / 100 100 / 100 mls/hr IV.SIG Q12H RICARDO Rx#: [id number] Diflucan 400 mg Premix Bag 200 200 / 200 ML @ 100 mls/hr IV.SIG Q24H RICARDO Rx#:[id number] KCl 20 mEq Premix Inj 20 meq In 400 / 400 100 ml @ 50 mls/hr IV.SIG Q2H PRN Rx#:[id number] fentaNYL 10 mcg/mL Premix Drip 58 / 58 2,500 mcg In 250 ml @ 50 MCG/HR 5 mls/hr IV.SIG TITRATE PRN Rx #:[id number] Oral 0 / 0 Tube Feeding 236 / 236 479 / 479 Output: Urine 800 / 800 Stool 50 / 50 1450 / 1450 Urine Amount (Catheter) 250 / 250 1 250 / 250 Wound Vac Amount 375 / 375 200 / 200 Posterior Sacrum 375 / 375 200 / 200 Other: Mode Setting Posterior Sacrum Continuous Continuous Continuous Date of Last Bowel Movement 01/07/18 01/07/18 - Routine Extremities Exam Present: edema (vac good sxn, no leak) - Urinary Catheter Management 1 Cath placed during this visit: yes Reason for continuing: Severe pressure ulcer/wound Insertion date: 12/15/17 Results - Labs 01/04/18 04:10 01/07/18 04:33 Laboratory Results - last 24 hr 01/07/18 01/07/18 01/07/18 09:23 12:12 15:22 POC Glucose 197 H 281 H 139 H 01/07/18 01/08/18 01/08/18 21:36 00:12 03:21 POC Glucose 398 H 366 H 227 H - Imaging Imaging: ITS Impressions Femur X-Ray 12/15/17 07:05 CONCLUSION: No fracture is identified. There is extensive soft tissue air in the right gluteal region and extending into the proximal and mid posterior thigh. The soft tissue air suggests an open wound. Pelvis X-Ray 12/15/17 07:05 CONCLUSION: No fracture is identified. However, there is extensive soft tissue air in the left gluteal region and left proximal thigh. Pelvis CT 12/15/17 07:52 CONCLUSION: 1. No fracture is identified. 2. Extensive subcutaneous and soft tissue gas bilaterally, left greater than right. It is most severe in the left gluteal region and extends into the proximal posterior thigh. The soft tissue air dissects through the gluteal musculature. There is adjacent subcutaneous edema. Foot X-Ray 12/18/17 00:00 CONCLUSION: Remote small avulsion fracture at the fifth toe. No acute bony abnormality. Venous Doppler Study 12/22/17 00:00 CONCLUSION: Extensive deep vein thrombosis of the left upper extremity. Chest X-Ray 12/31/17 06:00 CONCLUSION: 1. Tracheostomy tube is now seen. Endotracheal tube is no longer seen. 2. Bilateral pulmonary opacity is again seen with interval increase in the right lower lung zone opacity. No change in the left. Abdomen X-Ray 01/08/18 00:08 CONCLUSION: Feeding tube tip is in the region of the distal stomach Assessment and Plan - Assessment (1) Necrotizing fasciitis of pelvic region and thigh Code(s): M72.6 - Necrotizing fasciitis Status: Acute Plan: 52yo female with multiple medical comorbidities, s/p debridement of nec fasc - improving - +rebekah -Plan for vac change tomorrow -Obtain consents -Continue TF for today;onc dht placement, hold tf NPO after mn -ID following - transfer to floor
[2018-01-08] MEDS: Lisinopril 5 MG Tablet PO SCH (08:37)
[2018-01-08] MEDS: Metoprolol Tartrate 50 MG Tablet PO SCH ×2 (08:38→21:49)
[2018-01-08] MEDS: hydrALAZINE 50 MG Tablet PO SCH ×3 (08:38→17:52)
[2018-01-08] MEDS: Senna/Docusate Sodium 8.6/50 MG Tablet PO SCH ×2 (08:44→21:49)
[2018-01-08] MEDS: Famotidine PF Inj 20 MG/2 ML Vial IV.PUSH SCH ×2 (08:44→21:51)
[2018-01-08 09:17] LABS: Calcium 9.6 mg/dL (8.5-10.1); Carbon Dioxide 19.1 meq/L (21.0-32.0); Potassium 3.9 meq/L (3.5-5.1)
[2018-01-08 10:33] LABS: Hemoglobin 8.7 gm/dL (11.6-15.3); Mean Corpuscular HGB Conc 33.7 % (32.0-36.0); Mean Corpuscular Hemoglobin 31.1 pg (27.0-34.0); Mean Corpuscular Volume 92.5 fL (80.0-100.0); Mean Platelet Volume 9.1 fL (7.0-11.0); Platelet Count 312 th/mm3 (150-450); Red Blood Count 2.81 mil/mm3 (4.00-5.30); Red Cell Distribution Width 17.3 % (11.6-17.2); White Blood Count 11.1 th/mm3 (4.0-11.0)
[2018-01-08 10:52] LABS: Calcium 9.7 mg/dL (8.5-10.1); Carbon Dioxide 19.8 meq/L (21.0-32.0)
--- NOTE | 2018-01-08 11:24 | P.PN ---
Subjective Interval history: Noise Tester Notes: This 52-year-old woman with long-standing uncontrolled diabetes mellitus and severe peripheral arterial disease related to a long-term heavy smoking history was found down at her home and initial blood glucose was 610. Her lower back and buttocks was exquisitely tender and a mid line stage IV sacral decubitus was oozing purulent material and inflamed and the surrounding soft tissue. White count was not elevated but 90% neutrophils. Temperature 97 degrees. Moderately encephalopathic though conversant. X-rays revealed no fractures in the pelvis but CAT scan demonstrated extensive subcutaneous air emanating in both directions left and right from the mid sacral region. This is clearly necrotizing fasciitis or some other gas-forming infection and the woman is critically ill. She received vancomycin, Zosyn, and clindamycin antibiotic therapy as quickly as possible and was transferred to the ICU for ongoing resuscitation. Because of worsening hemodynamic stability she required intubation and mechanical ventilation followed by central line placement on arrival to the ICU. Insulin drip infusion was started in the emergency department and glucose had declined into the low 400s. She was not in ketoacidosis but lactic acid was elevated at 3.1. General surgery and orthopedic surgery were consulted for recommendations and it was felt that this woman was too unstable to tolerate an operative procedure immediately. We continue her ongoing resuscitation and trial in the ICU at this stage. 12/16: Following aggressive resuscitation yesterday for the treatment of severe hyperglycemia, septic shock, respiratory failure, metabolic acidosis, acute kidney injury, the patient went to the operating room with an extensive wide debridement bilateral gluteal and left thigh soft tissue and muscle. Primary antibiotic coverage at this point is vancomycin, cefepime, clindamycin. The patient started to make urine late yesterday afternoon and has continued to acceptable output since. Lactic acidosis is 2.0 this morning but metabolic acidosis persists despite bicarb drip. She remains on vasopressor support and hemodynamically unstable. 12/17: s/p debridement of large nec fasc wound. remains in shock today. also very hypoglycemic requiring multiple D50 amps overnight. 12/18: back in worsening shock. vasopressor support higher. required 2L crystalloid overnight and additional 1L and 500cc albumin today. ivc completely flat on bedside echo. LVEF hyperdynamic. no pericardial effusion. spoken with gen surg. plan to go back early to eval for worsening necrosis. fio2 also up to 100% and peep 10- hypoxic, likely early ARDS. 12/19: clinically doing better. still in shock on vasopressors, but requirements are lower and lactate cleared. Cr slowly uptrending. SVV still 19% today and appears to be volume responsive. gen surgery ordered 2 units prbc for falling hgb in the setting of blood loss with surgical intervention yesterday. fio2 improving. glycemic control also improving. 12/20: Markedly impaired oxygenation persists. Still requiring elevated end expiratory pressure. Nutritional support continues but she remains catabolic. It will be difficult to keep up with her nutritional needs. 12/21: Continued severe sepsis requiring vasopressor support and mechanical ventilation. Oxygenation remains impaired and smoldering metabolic acidosis persists. Despite hemodynamic instability the patient's only hope for survival is with infection source control through further debridement. Clearly a greatly increased risk however for any procedure. 12/22: Persistent septic shock course requiring vasopressor support and regular debridement. Good antibiotic coverage but she continues to require adjustment of ventilator, hemodynamic support drugs, antibiotics, intravenous fluids. Her nutritional status was quite depleted on arrival and continues to deteriorate despite adjuvant nutrition. 12/23: Patient continues septic course. She has developed venous clot throughout her left internal jugular subclavian and axillary vein system. Not a candidate for full anticoagulation because of need for frequent surgical debridement. We will pull out the catheter today and placing In the right subclavian route. 12/24 remains critically ill and septic remains on Rj-Synephrine at 50 mcg/kg/ min. WBC count increasing 20 6K today. Antibiotics have been changed by ID. Diflucan added for Talia UTI. Plan for OR today per surgery 12/25: Went to OR yesterday, s/p Incision, drainage with excisional debridement of back, buttock, thigh, and VAC change. Main septic White count increasing 31, 000 today, remains on pressors vasopressin and Rj-Synephrine. 12/26: Remains critical remains on vasopressin to maintain blood pressure and map above 65, currently off Rj-Synephrine. Remains severely fluid overloaded approximately 20 kg up. Despite pressor use will start IV diuretics to achieve negative fluid balance 12/27: Intubated sedated but more awake follows some commands. Hemoglobin down to 6.4, 2 g dropped, receiving 2 units of PRBC. No obvious bleeding noted. Currently had been weaned off the pressors. Or planned for tomorrow again 12/28: OR today for wound VAC change and I&D, possible tracheostomy. Potassium is 2.6 getting replaced. Hemoglobin stable. Remains off pressors. Urine output almost 8 L with forced diuresis 12/29: Status post OR for wound VAC change in tracheostomy yesterday. Getting for his diuresis urine output more than 4 L in 24 hours. Remains intubated sedated intermittently follows commands. Plan for I&D wound VAC change again on Saturday 12/30: Remains intubated sedated more stable. Urine output remains excellent with diuresis. Plan for OR in a.m. for further I&D and VAC change 12/31: Patient remains intubated plan for OR today with Dr. Muir for further I&D and wound VAC change. Making urine more than 4 L in 24 hours with diuresis. Getting closer to admission weight. Potassium 3.3 getting replacement 01/01: Remains intubated sedated failing CPAP due to low tidal volumes. Status post OR yesterday for the I&D tomorrow planned by general surgery. Urine output 3 L in 24 hours 01/02: Potassium being replaced. Ready for OR today. Return from the OR with stable hemodynamics on mechanical ventilation. 01/03: Attempted spontaneous breathing trials today and converted to T piece. We will continue this method of weaning. Nutrition infusing and well- tolerated. Severity of wound will require a lengthy hospitalization. 01/04: Nasogastric tube is out. She is much more alert and we will try a swallow evaluation before replacing. Contraction alkalosis is developing with diuretics, will add a carbonic anhydrase inhibitor. 01/05: Breathing comfortably on T-piece. Failed swallow eval. Will need to replace nasogastric tube or Dobbhoff for nutrition. 01/06: Alert interactive. Failed swallow eval possibly due to the distortion of the trach cuff. Continue feeding through Dobbhoff tube. Patient is stable to go to floor now. Fentanyl drip converted to fentanyl patch. Adequately diuresed of post edema, discontinue diuretics and replace potassium. After K replaced add lisinopril now that GFR back to normal. Hospitalist Notes: 01/08: Seen in her bedroom discussed with nurse Miss Jaramillo, patient not able to Eat will continue Tube feedings using Glucerna at 50 ml per Hour dietitian following. Physical Exam Vital signs: Vital Signs 01/07/18 12:00 01/07/18 16:00 01/07/18 20:00 Temperature 98.7 F 98.3 F 98.4 F Pulse Rate 122 H 110 H 104 H Respiratory Rate 26 H 25 H 18 Blood Pressure 179/81 H 190/71 H 142/80 H Pulse Oximetry 100 100 96 01/07/18 20:57 01/08/18 00:00 01/08/18 04:00 Temperature 98.3 F 98.7 F Pulse Rate 104 H 95 H Respiratory Rate 18 18 Blood Pressure 159/77 H 124/59 L Pulse Oximetry 98 97 98 01/08/18 08:00 01/08/18 10:37 Temperature 98.3 F Pulse Rate 100 H Respiratory Rate 16 Blood Pressure 137/65 Pulse Oximetry 98 95 Intake & Output 01/07/18 01/08/18 01/08/18 18:59 06:59 18:59 Intake Total 1517 / 1517 100 / 100 Output Total 2075 / 2075 350 / 350 Balance -558 / -558 -250 / -250 Weight 59.8 kg Intake: IV 1038 / 1038 100 / 100 D5W/LR Inj 1,000 ML @ 40 mls/hr 280 / 280 IV.CONT .Q24H RICARDO Rx#:[id number] Flexbumin 25% Inj 100 ML @ 60 100 / 100 100 / 100 mls/hr IV.SIG Q12H RICARDO Rx#: [id number] Diflucan 400 mg Premix Bag 200 200 / 200 ML @ 100 mls/hr IV.SIG Q24H RICARDO Rx#:[id number] KCl 20 mEq Premix Inj 20 meq In 400 / 400 100 ml @ 50 mls/hr IV.SIG Q2H PRN Rx#:[id number] fentaNYL 10 mcg/mL Premix Drip 58 / 58 2,500 mcg In 250 ml @ 50 MCG/HR 5 mls/hr IV.SIG TITRATE PRN Rx #:[id number] Oral 0 / 0 Tube Feeding 479 / 479 Output: Stool 1450 / 1450 Urine Amount (Catheter) 250 / 250 150 / 150 1 250 / 250 150 / 150 Wound Vac Amount 375 / 375 200 / 200 Posterior Sacrum 375 / 375 200 / 200 Other: Mode Setting Posterior Sacrum Continuous Continuous Intermittent Date of Last Bowel Movement 01/07/18 Narrative: General: Ill-appearing middle-aged woman, tracheostomy and T-piece Head: Atraumatic, edentulous, mouth clean Neck: Supple, trach site clean, dry. Lungs: Few scattered rhonchi persist, air movement good bilaterally Heart: Regular rate rate and regular rhythm. no JVD. Abdomen: Soft, no guarding, no peritoneal irritation. Bowel sounds are active. Back: Wound VAC remains in place over lower lumbar region. Extremities: Warm, well perfused, status post below-knee amputation right side, necrotic ulceration over several toes left foot. Persistent generalized edema involving the left arm. Neurological: Tracheostomy, moves 4 limbs to stimulation. Pupils responsive. Follows commands x4. Tracks with eyes. - Urinary Catheter Management 1 Cath placed during this visit: yes Reason for continuing: Severe pressure ulcer/wound Insertion date: 12/15/17 Results - Labs CBC & Chem 7: 01/08/18 10:07 01/08/18 10:07 Laboratory Results - last 24 hr 01/07/18 01/07/18 01/07/18 12:12 15:22 21:36 WBC RBC Hgb Hct MCV MCH MCHC RDW Plt Count MPV Sodium Potassium Chloride Carbon Dioxide Anion Gap BUN Creatinine Estimated GFR POC Glucose 281 H 139 H 398 H Random Glucose Calcium 01/08/18 01/08/18 01/08/18 00:12 03:21 07:55 WBC RBC Hgb Hct MCV MCH MCHC RDW Plt Count MPV Sodium 149 H Potassium 3.9 D Chloride 120 H D Carbon Dioxide 19.1 L Anion Gap 10 BUN 19 H Creatinine 0.75 Estimated GFR 81 L POC Glucose 366 H 227 H Random Glucose 136 H Calcium 9.6 D 01/08/18 01/08/18 01/08/18 08:30 10:07 10:07 WBC 11.1 H RBC 2.81 L Hgb 8.7 L Hct 26.0 L MCV 92.5 MCH 31.1 MCHC 33.7 RDW 17.3 H Plt Count 312 D MPV 9.1 Sodium 149 H Potassium 4.0 Chloride 119 H Carbon Dioxide 19.8 L Anion Gap 10 BUN 19 H Creatinine 0.75 Estimated GFR 81 L POC Glucose 153 H Random Glucose 184 H Calcium 9.7 - Imaging Impressions Abdomen X-Ray 01/08/18 00:08 CONCLUSION: Feeding tube tip is in the region of the distal stomach - Procedures - Preoperative Diagnosis (1) Necrotizing fasciitis of pelvic region and thigh - Postoperative Diagnosis (1) Necrotizing fasciitis of pelvic region and thigh Procedure: i and d with vac change, partial closure Anesthesia: GETA Surgeon: Ventura Bazzi MD Pathology: none sent Operation and Findings: bleeding granulation, scant fibropurulence Assessment and Plan - Plan Assessment: 52yF with large necrotizing soft tissue infection of the lower back and sacrum complicated by septic shock and multiorgan dysfunction. OR 01/08, then for further I&D, wound VAC change. 1. Acute Metabolic Encephalopathy resolved 2. Septic Shock Improved, Myocardial dysfunction secondary to septic shock/ Fluid Overload resolved 3. Acute Hypoxic and hypercarbic respiratory failure persistent status post Tracheostomy place 12/28/17 T Piece trials are successful 4. DM II/severe hypoglycemia to continue tube feedings at this time continue Glucerna 1.5 at 50 ml per hour following electrolytes closely. 5. Septic Shock/necrotizing soft tissue infection continue Daptomycin and Zosyn, Diflucan for fungal coverage. status post Vacuum change today. and partial closure 6. Acute Protein Calorie malnutrition-Severe prealbumin 5 on 12/18 Daily BMP and Magnesium and Phosphorus, Glucerna 1.5 at 50 ml per hour Dietitian following 7. left upper extremity DVT - DVT left internal jugular, subclavian, axillary and distal arm veins. - Cannot anticoagulate secondary to blood loss anemia requiring blood transfusion, frequent surgeries Prophylaxis - Pepcid for GI ulcer prophylaxis - SCDs for DVT prophylaxis - Hold chemical DVT prophylaxis until ongoing surgical decisions regarding further debridement are made Code Status: Full code. Discussed Condition With: Patient and Nurse miss Jaramillo Discharge Planning: Once cleared by specialists.
[2018-01-08] MEDS ORDERED: Phenylephrine/NS 1000 MCG/10ML Syringe IV.PUSH ONE (11:52)
--- NOTE | 2018-01-08 12:56 | P.OP ---
- Preoperative Diagnosis (1) Necrotizing fasciitis of pelvic region and thigh - Postoperative Diagnosis (1) Necrotizing fasciitis of pelvic region and thigh Procedure: i and d with vac change, partial closure Anesthesia: GETA Surgeon: Ventura Bazzi MD Pathology: none sent Operation and Findings: bleeding granulation, scant fibropurulence
[2018-01-08] MEDS ORDERED: fentaNYL Citrate Inj 100 MCG/2 ML Ampul ONE (13:11)
[2018-01-08] MEDS: Potassium Bicarbonate 25 MEQ Effervescent Tablet NG/OG SCH ×2 (13:52→21:49)
[2018-01-08] MEDS: Chlorhexidine 0.12% Oral Kit 15 ML UDC OROPHARYNG SCH ×2 (13:53→21:48)
--- NOTE | 2018-01-08 15:40 | P.DIET ---
Nutritional Evaluation Type of nutrition evaluation: follow-up Nutrition consult regarding: Tube Feeding Subjective Subjective Comments: Found down at home. 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%) % IBW: 122 (IBW = 123-lb (adjusted for amp)) Body Weight Used for Calculations: Actual (64.9 kg) Energy Needs - Lower Range (kCal/kg): 30 Energy Needs - Upper Range (kCal/kg): 35 Lower Limit kCal/kg (kCals): 1,947 Upper Limit kCal/kg (kCals): 2,272 Lower Limit Protein Factor (Grams per Kg): 1.2 Upper Limit Protein Factor (Grams per Kg): 1.6 Lower Protein Needs (Protein): 78 Upper Protein Needs (Protein): 104 Dietitian Reviewed in Medical Record: Curent medications, Intake & Output, Labs , Medical history, Tube feeding, Wound/DTI Diet Order: NPO Objective Comments: PMH includes: Hep C, DM, PAD, HTN, Osteomyelitis, R AKA, GERD, gastroparesis, PVD, peripheral neuropathy Decubitus Ulcer; here w/Stage IV sacral decubitus s/p debridement of Necrotizing tissue Fasciitis 01/08/19: Necrotizing Fasciitis of pelvic region and thigh w/ I & D, wound vac change, partial closure Random Glucose 184, POC Glucose 202, 208 +stool Assessment Assessment: Pt continues at high nutrition risk r/t increased needs for wound healing, clinical status and need for TF'ing. Pt's TF'ing currently on hold for OR procedure, I%D and wound vac change. Pt previously tolerating Glucerna 1.5 @ 50mL/hr well prior to hold. Pt has had multiple trips to the OR requiring TF' ing to be placed on hold. When TF'ing resumes, Rec Glucerna 1.5 w/ increase in goal rate to 60ml/hr to provide 2160 kcal, 119g protein and 1093ml free water. Rec to resume Alek 1-pkt BID for aid in wound healing. Labs, wts and clinical course reviewed. Recommendations: 1. When TF'ing resumes, Rec Glucerna 1.5 w/ increase in goal rate to 60ml/hr 2. Rec to resume Alek 1-pkt BID for aid wound healing Dietitian to Monitor: Lab values, Glucose level, Intake & Output, Tube feeding tolerance, Weight change, Wound/skin status, Medical course
[2018-01-09] MEDS: Insulin NovoLIN Regular Correctional Sugar Inj SQ SCH ×6 (00:40→21:24)
[2018-01-09] MEDS: Oral Hygiene Kit OROPHARYNG SCH ×4 (00:42→17:46)
[2018-01-09] MEDS: Albumin Human 25% Inj 100 ML IV.SIG SCH ×2 (02:00→15:38)
[2018-01-09] MEDS: Acetaminophen 650 MG Supp RECTAL PRN (04:45)
[2018-01-09 08:27] LABS: Calcium 9.7 mg/dL (8.5-10.1); Carbon Dioxide 19.5 meq/L (21.0-32.0); Magnesium 2.6 mg/dL (1.5-2.5); Phosphorus 0.7 mg/dL (2.5-4.9); Potassium 4.1 meq/L (3.5-5.1)
[2018-01-09] MEDS: Senna/Docusate Sodium 8.6/50 MG Tablet PO SCH ×2 (08:45→21:23)
[2018-01-09] MEDS: Metoprolol Tartrate 50 MG Tablet PO SCH ×2 (08:45→21:23)
[2018-01-09] MEDS: Lisinopril 5 MG Tablet PO SCH (08:45)
[2018-01-09] MEDS: Famotidine PF Inj 20 MG/2 ML Vial IV.PUSH SCH ×2 (08:45→21:24)
[2018-01-09] MEDS: hydrALAZINE 50 MG Tablet PO SCH ×3 (08:45→17:45)
[2018-01-09] MEDS: Chlorhexidine 0.12% Oral Kit 15 ML UDC OROPHARYNG SCH ×2 (08:46→21:25)
[2018-01-09] MEDS: Potassium Bicarbonate 25 MEQ Effervescent Tablet NG/OG SCH ×2 (08:46→21:23)
--- NOTE | 2018-01-09 09:37 | P.PNGS ---
Subjective Patient reports: no new complaints Physical Exam Vital signs: Vital Signs 01/08/18 10:37 01/08/18 12:52 01/08/18 13:00 Temperature 99.0 F Pulse Rate 96 H 103 H Respiratory Rate 16 16 Blood Pressure 142/73 H 151/77 H Pulse Oximetry 95 99 99 01/08/18 13:15 01/08/18 13:20 01/08/18 16:00 Temperature 99.0 F 98.3 F Pulse Rate 97 H 108 H Respiratory Rate 16 17 Blood Pressure 153/77 H 153/70 H Pulse Oximetry 100 99 100 01/08/18 20:00 01/08/18 20:30 01/08/18 23:57 Temperature 99.3 F 99.8 F H Pulse Rate 115 H 104 H Respiratory Rate 17 17 Blood Pressure 166/70 H 164/89 H Pulse Oximetry 98 98 96 01/09/18 04:37 01/09/18 07:00 01/09/18 08:00 Temperature 100.5 F H 98.5 F Pulse Rate 112 H 114 H Respiratory Rate 21 17 Blood Pressure 175/79 H 157/70 H Pulse Oximetry 99 98 98 Intake & Output 01/08/18 01/09/18 01/09/18 18:59 06:59 18:59 Intake Total 600 / 600 100 / 100 Output Total 175 / 175 1250 / 1250 Balance 425 / 425 -1150 / -1150 Weight 60 kg Intake: IV 300 / 300 100 / 100 Flexbumin 25% Inj 100 ML @ 60 100 / 100 100 / 100 mls/hr IV.SIG Q12H RICARDO Rx#: [id number] Diflucan 400 mg Premix Bag 200 200 / 200 ML @ 100 mls/hr IV.SIG Q24H RICARDO Rx#:[id number] Anesthesia Amount 300 / 300 Output: Urine 1000 / 1000 Urine Amount (Catheter) 175 / 175 1 175 / 175 Wound Vac Amount 250 / 250 Posterior Sacrum 250 / 250 Other: Mode Setting Posterior Sacrum Continuous Continuous Date of Last Bowel Movement 01/07/18 - Routine Abdominal Exam Present: soft - Routine Skin Exam Present: intact (vac in place good sxn) - Urinary Catheter Management 1 Cath placed during this visit: yes Reason for continuing: Severe pressure ulcer/wound Insertion date: 12/15/17 Results - Labs 01/08/18 10:07 01/09/18 07:21 Laboratory Results - last 24 hr 01/08/18 01/08/18 01/08/18 10:07 10:07 11:12 WBC 11.1 H RBC 2.81 L Hgb 8.7 L Hct 26.0 L MCV 92.5 MCH 31.1 MCHC 33.7 RDW 17.3 H Plt Count 312 D MPV 9.1 Sodium 149 H Potassium 4.0 Chloride 119 H Carbon Dioxide 19.8 L Anion Gap 10 BUN 19 H Creatinine 0.75 Estimated GFR 81 L POC Glucose 202 H Random Glucose 184 H Calcium 9.7 Phosphorus Magnesium Blood Type Antibody Screen MTS Gel Crossmatch 01/08/18 01/08/18 01/08/18 11:45 13:08 17:42 WBC RBC Hgb Hct MCV MCH MCHC RDW Plt Count MPV Sodium Potassium Chloride Carbon Dioxide Anion Gap BUN Creatinine Estimated GFR POC Glucose 228 H 338 H Random Glucose Calcium Phosphorus Magnesium Blood Type O Negative Antibody Screen Negative MTS Gel Crossmatch See Detail 01/09/18 01/09/18 01/09/18 04:18 07:21 07:41 WBC RBC Hgb Hct MCV MCH MCHC RDW Plt Count MPV Sodium 149 H Potassium 4.1 Chloride 120 H Carbon Dioxide 19.5 L Anion Gap 10 BUN 34 H Creatinine 1.07 H Estimated GFR 54 L POC Glucose 303 H 324 H Random Glucose 300 H D Calcium 9.7 Phosphorus 0.7 L Magnesium 2.6 H Blood Type Antibody Screen MTS Gel Crossmatch - Imaging Imaging: ITS Impressions Femur X-Ray 12/15/17 07:05 CONCLUSION: No fracture is identified. There is extensive soft tissue air in the right gluteal region and extending into the proximal and mid posterior thigh. The soft tissue air suggests an open wound. Pelvis X-Ray 12/15/17 07:05 CONCLUSION: No fracture is identified. However, there is extensive soft tissue air in the left gluteal region and left proximal thigh. Pelvis CT 12/15/17 07:52 CONCLUSION: 1. No fracture is identified. 2. Extensive subcutaneous and soft tissue gas bilaterally, left greater than right. It is most severe in the left gluteal region and extends into the proximal posterior thigh. The soft tissue air dissects through the gluteal musculature. There is adjacent subcutaneous edema. Foot X-Ray 12/18/17 00:00 CONCLUSION: Remote small avulsion fracture at the fifth toe. No acute bony abnormality. Venous Doppler Study 12/22/17 00:00 CONCLUSION: Extensive deep vein thrombosis of the left upper extremity. Chest X-Ray 12/31/17 06:00 CONCLUSION: 1. Tracheostomy tube is now seen. Endotracheal tube is no longer seen. 2. Bilateral pulmonary opacity is again seen with interval increase in the right lower lung zone opacity. No change in the left. Abdomen X-Ray 01/08/18 00:08 CONCLUSION: Feeding tube tip is in the region of the distal stomach Assessment and Plan - Assessment (1) Necrotizing fasciitis of pelvic region and thigh Code(s): M72.6 - Necrotizing fasciitis Status: Acute Plan: 52yo female with multiple medical comorbidities, s/p debridement of nec fasc s/ p vac change - improving - +rebekah -Plan for vac change sunday or sunday -Continue TF for today;onc dht placement, -ID following - dvt ppx - will follow intermittently
--- NOTE | 2018-01-09 10:28 | P.PNIM ---
Subjective Interval history: 52-year-old f admitted with severe sepsis and septic shock from necrotizing fasciitis of the buttocks and left thigh, s/p multiple debridements and tracheostomy for respiraotry failure, transferred from icu , failed swallow eval and continues on tube feeds via dobhoff, rectal management system in place for diarrhea, per nursing high residual this morning and feeding on hold for now, patient is awake but very weak, no other specific complaints. She remains a bit tachycardic, but follows some commands. Physical Exam Vital signs: Last Vital Signs Temp 98.5 F 01/09/18 08:00 Pulse 114 H 01/09/18 08:00 Resp 17 01/09/18 08:00 BP 157/70 H 01/09/18 08:00 Pulse Ox 98 01/09/18 08:00 Intake & Output 01/07/18 01/08/18 01/09/18 01/10/18 06:59 06:59 06:59 06:59 Intake Total 986 / 986 1617 / 1617 700 / 700 Output Total 2024 / 2024 2425 / 2425 1425 / 1425 Balance -1039 / -1039 -808 / -808 -725 / -725 Weight 63.3 kg 59.8 kg 60 kg gen-chronically ill appearing w 52yo f neck -trach in place no erythema or purulence lungs decreased bs bases no wheeze no rhonchi abd soft flat nondt pos bs nontender wound vac in place on buttocks ext R bka, left foot with gangrenous appearing toes 2-4, client success director strength 1/5 no significant edema, dp pulse +3, follows some commands, skin warm dry decreased turgor Urinary Catheter Management 1: Cath placed during this visit: yes Urethral indwelling: Yes Reason for continuing: Severe pressure ulcer/wound Insertion date: 12/15/17 Results Labs CBC & Chem 7: 01/08/18 10:07 01/09/18 07:21 Labs: Microbiology 12/24/17 12:20 Tissue - Buttock Acid Fast Bacilli Smear - Final No acid fast bacilli seen 12/24/17 12:20 Tissue - Buttock Mycobacterial Culture - Preliminary No growth in 2 weeks Procedures Procedures: - Preoperative Diagnosis (1) Necrotizing fasciitis of pelvic region and thigh - Postoperative Diagnosis (1) Necrotizing fasciitis of pelvic region and thigh Procedure: i and d with vac change, partial closure Anesthesia: GETA Surgeon: Ventura Bazzi MD Pathology: none sent Operation and Findings: bleeding granulation, scant fibropurulence Assessment and Plan Plan -ACUTE METABOLIC ENCEPHALOPATHY improving, sluggish mentation, increase oob, activity as tolerated. -SEVERE SEPTIC SHOCK - Improved, -ACUTE HYPOXIC /HYPERCARBIC RESPIRATORY FAILURE - improving status post Tracheostomy place 12/28/17 T Piece trials are successful -MYOCARDIAL DYSFUNCTION secondary to septic shock/Fluid Overload s/p agressive diuresis - improved -ACUTE NECROTIZING FASCITITIS of buttocks and left thigh s/p multiple debridements/wound vac, continue abx daptomycin,zosyn and diflucan per ID, cont wound care per sx -DMII/brittle DM uncontrolled - cont insulin sliding scale and enteral nutrition per dobhoff as tolerated, if continues to require npo will need to address peg? -ACUTE DVT LEFT UEXT - - DVT left internal jugular, subclavian, axillary and distal arm veins. - Cannot anticoagulate secondary to acute blood loss anemia requiring blood transfusion, frequent surgeries, high bleeding risk -SEVERE PROTEIN CALORIE MALNUTRITION prealbumin 5 on 12/18 Daily BMP and Magnesium and Phosphorus, Glucerna 1.5 at 50 ml per hour Dietitian following -ANEMIA of acute blood loss and chronic dz - mvi, transfuse prn -HYPERNATREMIA - increase free water per dht -GANGRENE w ulceration Left foot - wound care per podiatry recommendations and follow up with podiatry, may need surgical intervention -Prophylaxis - Pepcid for GI ulcer prophylaxis - SCDs for DVT prophylaxis - Hold chemical DVT prophylaxis until ongoing surgical decisions regarding further debridement are made Progress Note: Quality VTE Deep Vein Thrombosis/Pulmonary Embolism Present on Admission: No
--- NOTE | 2018-01-09 10:46 | P.PNWCN ---
Wound Care Nurse Consult Additional information: Patient not seen for wound management L foot. Podiatry Doctor Citlaly last saw patient on 12/18 for this area, recommended dressing orders and has not signed off.Please defer to podiatry for any issues regarding wound care and deterioration of wounds to L foot area. Wound care inpatient is signing off.
[2018-01-09 14:41] LABS: Calcium 9.6 mg/dL (8.5-10.1); Potassium 3.9 meq/L (3.5-5.1)
--- NOTE | 2018-01-09 15:36 | P.PNID ---
Subjective Remarks: Patient is somewhat lethargic but responds to commands. On T-piece. As a low-grade fever of 100.5. Has loose stools and dignishield. This is a 52-year-old white female who was brought to the emergency department after she fell at home. The patient was noted to have profound weakness. She was evaluated in the emergency department and at that time had normal temperature and white blood cell count was also normal. She underwent CT scan of the abdomen and pelvis that showed extensive subcutaneous and soft tissue gas bilaterally with the left greater than right, most severe in the left gluteal region and extending into the proximal posterior thigh soft tissue and air-fluid dissecting through the gluteal musculature. Antibiotics: Diflucan. Allergies/Adverse Reactions: Allergies No Known Allergies Allergy (Verified 12/15/17 07:54) Objective Vital Signs 01/08/18 16:00 01/08/18 20:00 01/08/18 20:30 Temperature 98.3 F 99.3 F Pulse Rate 108 H 115 H Respiratory Rate 17 17 Blood Pressure 153/70 H 166/70 H Pulse Oximetry 100 98 98 01/08/18 23:57 01/09/18 04:37 01/09/18 07:00 Temperature 99.8 F H 100.5 F H Pulse Rate 104 H 112 H Respiratory Rate 17 21 Blood Pressure 164/89 H 175/79 H Pulse Oximetry 96 99 98 01/09/18 08:00 01/09/18 12:00 Temperature 98.5 F 98.4 F Pulse Rate 114 H 107 H Respiratory Rate 17 17 Blood Pressure 157/70 H 166/70 H Pulse Oximetry 98 99 Intake & Output 01/08/18 01/09/18 01/09/18 18:59 06:59 18:59 Intake Total 600 / 600 100 / 100 Output Total 175 / 175 1250 / 1250 Balance 425 / 425 -1150 / -1150 Weight 60 kg Intake: IV 300 / 300 100 / 100 Flexbumin 25% Inj 100 ML @ 60 100 / 100 100 / 100 mls/hr IV.SIG Q12H RICARDO Rx#: [id number] Diflucan 400 mg Premix Bag 200 200 / 200 ML @ 100 mls/hr IV.SIG Q24H RICARDO Rx#:[id number] Anesthesia Amount 300 / 300 Output: Urine 1000 / 1000 Urine Amount (Catheter) 175 / 175 1 175 / 175 Wound Vac Amount 250 / 250 Posterior Sacrum 250 / 250 Other: Mode Setting Posterior Sacrum Continuous Continuous Continuous Date of Last Bowel Movement 01/07/18 12/24/17 12:20 Tissue - Buttock Acid Fast Bacilli Smear - Final No acid fast bacilli seen 12/24/17 12:20 Tissue - Buttock Mycobacterial Culture - Preliminary No growth in 2 weeks Lab - Hematology Results 01/08/18 10:07 WBC 11.1 H RBC 2.81 L Hgb 8.7 L Hct 26.0 L MCV 92.5 MCH 31.1 MCHC 33.7 RDW 17.3 H Plt Count 312 D MPV 9.1 Lab - Chemistry Results 01/07/18 01/08/18 01/08/18 21:36 00:12 03:21 Sodium Potassium Chloride Carbon Dioxide Anion Gap BUN Creatinine Estimated GFR POC Glucose 398 H 366 H 227 H Random Glucose Calcium Phosphorus Magnesium 01/08/18 01/08/18 01/08/18 07:55 08:30 10:07 Sodium 149 H 149 H Potassium 3.9 D 4.0 Chloride 120 H D 119 H Carbon Dioxide 19.1 L 19.8 L Anion Gap 10 10 BUN 19 H 19 H Creatinine 0.75 0.75 Estimated GFR 81 L 81 L POC Glucose 153 H Random Glucose 136 H 184 H Calcium 9.6 D 9.7 Phosphorus Magnesium 01/08/18 01/08/18 01/08/18 11:12 13:08 17:42 Sodium Potassium Chloride Carbon Dioxide Anion Gap BUN Creatinine Estimated GFR POC Glucose 202 H 228 H 338 H Random Glucose Calcium Phosphorus Magnesium 01/09/18 01/09/18 01/09/18 04:18 07:21 07:41 Sodium 149 H Potassium 4.1 Chloride 120 H Carbon Dioxide 19.5 L Anion Gap 10 BUN 34 H Creatinine 1.07 H Estimated GFR 54 L POC Glucose 303 H 324 H Random Glucose 300 H D Calcium 9.7 Phosphorus 0.7 L Magnesium 2.6 H 01/09/18 01/09/18 11:17 13:17 Sodium 151 H Potassium 3.9 Chloride 120 H Carbon Dioxide 22.0 Anion Gap 9 BUN 34 H Creatinine 0.82 Estimated GFR 73 L POC Glucose 256 H Random Glucose 242 H Calcium 9.6 Phosphorus Magnesium Imaging: ITS Impressions Femur X-Ray 12/15/17 07:05 CONCLUSION: No fracture is identified. There is extensive soft tissue air in the right gluteal region and extending into the proximal and mid posterior thigh. The soft tissue air suggests an open wound. Pelvis X-Ray 12/15/17 07:05 CONCLUSION: No fracture is identified. However, there is extensive soft tissue air in the left gluteal region and left proximal thigh. Pelvis CT 12/15/17 07:52 CONCLUSION: 1. No fracture is identified. 2. Extensive subcutaneous and soft tissue gas bilaterally, left greater than right. It is most severe in the left gluteal region and extends into the proximal posterior thigh. The soft tissue air dissects through the gluteal musculature. There is adjacent subcutaneous edema. Foot X-Ray 12/18/17 00:00 CONCLUSION: Remote small avulsion fracture at the fifth toe. No acute bony abnormality. Venous Doppler Study 12/22/17 00:00 CONCLUSION: Extensive deep vein thrombosis of the left upper extremity. Chest X-Ray 12/31/17 06:00 CONCLUSION: 1. Tracheostomy tube is now seen. Endotracheal tube is no longer seen. 2. Bilateral pulmonary opacity is again seen with interval increase in the right lower lung zone opacity. No change in the left. Abdomen X-Ray 01/08/18 00:08 CONCLUSION: Feeding tube tip is in the region of the distal stomach Physical Exam: PHYSICAL EXAMINATION: GENERAL: Awake. Sedated. HEENT: Pale sclera. Oropharynx mucosa is moist. No thrush. NECK: Supple. No adenopathy or swelling. LUNGS: Decreased breath sounds with slight rhonchi at the bases. HEART: irregular S1 and S2. 1-2/6 systolic murmur at the left sternal border. ABDOMEN: Bowel sounds present, soft. BACK: Surgical wound post debridement across the lower back, buttock and thigh. Vac in place. EXTREMITIES: No clubbing, no cyanosis or edema. abrasion with dry necrotic changes at left dorsal toes 2-4. SKIN: No diffuse rash. Scattered ecchymotic lesions. NEUROLOGIC: Unable to assess. PSYCHIATRIC: Calm and cooperative. Assessment and Plan - Plan IMPRESSION: 1. Necrotizing fasciitis of the back, buttock and thigh. Talia albicans and Talia tropicalis. 2. Septic shock. Responded to broad-spectrum antibiotics. 3. Acute respiratory failure. 4. Chronic kidney disease. 5. Leukocytosis. Improved. 6. Low-grade fever. RECOMMENDATIONS: 1. Continue Diflucan. 2. Add Flagyl p.o. empiric anaerobic coverage. 2. Monitor clinical status.
--- NOTE | 2018-01-09 16:31 | P.PNPAL ---
Reason for Visit Reason for visit: a. To assist with evaluation and management of symptoms including: Pain, debility b. To assist medical decision maker(s) with: better understanding of current medical conditions; weighing benefits/burdens of medical treatment options; making medical treatment decisions. Subjective Subjective/Interval History: Palliative Care follow-up for clarifications of goals of care, family support. Patient seen in medical floor, transfer from ICU on 01/06. Patient post tracheostomy. Currently on T-piece at 5 L 28% FiO2. Nutrition Via Dobbhoff but she has continued to fail swallowing evaluations. Infectious disease following for sepsis from necrotizing fasciitis of the back, buttocks and thigh requiring regular debridement, plan to return to OR on 01/11. Patient seen with eyes open, not attempting to communicate. Patient with persistent encephalopathy. Fever overnight, max temp 100.5. Stable hemodynamically. Patient with multiple chronic ongoing comorbidities who remains very ill. High risk for further complications, ongoing functional decline and . Family/Friend Interactions: Telephone conversation with patient's Mr. Middleton. Medical update provided. sharing concerns of patient's clinical condition and very slow recovery. He reports that he came to visit patient last night but he was like "she was not there mentally". Reviewed current ongoing clinical medical issues to include persistent encephalopathy, necrotizing fasciitis to back and buttocks requiring frequent surgical debridements, profound physical deconditioning, dysphagia and malnutrition, respiratory distress status post tracheostomy, and multiple chronic ongoing medical issues to include diabetes and peripheral vascular disease with gangrene to lower extremity. Review quality of life in the setting of prolonged hospitalization with multiple surgical interventions. Patient already debilitated at baseline with multiple chronic comorbidities. Reviewed short-term and long-term prognosis to include prolonged hospitalization and rehabilitation attempts, likely long-term retirement placement given the above. Discussed setting limitations to treatment. Reviewed risks, benefits and limitations of CPR given patient's clinical condition. requesting to continue current medical management to include full code at this time, allow a few more days to reevaluate patient's clinical condition and prognosis. was encouraged to contact patient's family for support with goals of care. appreciative of telephone call, receptive to palliative care follow-up. Advance Directives Living Will: Never completed Health Care Surrogate: Never completed Health Care Surrogate Name and Number: HCP Tyrone Middleton Documented care wishes:: No known documented care wishes have been completed Objective Vital Signs: Vital Signs 01/08/18 20:00 01/08/18 20:30 01/08/18 23:57 Temperature 99.3 F 99.8 F H Pulse Rate 115 H 104 H Respiratory Rate 17 17 Blood Pressure 166/70 H 164/89 H Pulse Oximetry 98 98 96 01/09/18 04:37 01/09/18 07:00 01/09/18 08:00 Temperature 100.5 F H 98.5 F Pulse Rate 112 H 114 H Respiratory Rate 21 17 Blood Pressure 175/79 H 157/70 H Pulse Oximetry 99 98 98 01/09/18 12:00 Temperature 98.4 F Pulse Rate 107 H Respiratory Rate 17 Blood Pressure 166/70 H Pulse Oximetry 99 Intake & Output 01/08/18 01/09/18 01/09/18 18:59 06:59 18:59 Intake Total 600 / 600 100 / 100 200 / 200 Output Total 175 / 175 1250 / 1250 Balance 425 / 425 -1150 / -1150 200 / 200 Weight 60 kg Intake: IV 300 / 300 100 / 100 200 / 200 Flexbumin 25% Inj 100 ML @ 60 100 / 100 100 / 100 mls/hr IV.SIG Q12H RICARDO Rx#: [id number] Diflucan 400 mg Premix Bag 200 200 / 200 200 / 200 ML @ 100 mls/hr IV.SIG Q24H RICARDO Rx#:[id number] Anesthesia Amount 300 / 300 Output: Urine 1000 / 1000 Urine Amount (Catheter) 175 / 175 1 175 / 175 Wound Vac Amount 250 / 250 Posterior Sacrum 250 / 250 Other: Mode Setting Posterior Sacrum Continuous Continuous Continuous Date of Last Bowel Movement 01/07/18 Physical Exam: CONSTITUTIONAL/GENERAL: This is a chronically ill appearing female who looks older than her stated age. TUBES/LINES/DRAINS: Tracheostomy, SCDs, PIV, wound VAC. SKIN: Very pale. Abrasion on left forehead. Scattered ecchymosis to upper extremities. Wound VAC in place over lower lumbar region with blood-tinged drainage -not observed. Skin temperature appropriate. Not diaphoretic. HEAD: Atraumatic. Normocephalic. EYES: Pupils equal and round, reactive. No scleral icterus. No injection or drainage. ENT: Nose without bleeding or purulent drainage. Moist oral mucosa. NECK: Trachea midline. Tracheostomy in place. CARDIOVASCULAR: Regular rate and rhythm. RESPIRATORY/CHEST: O2 via TPA, tracheostomy. Clear breath sounds, diminished. GASTROINTESTINAL: Abdomen soft, non-tender, nondistended. No guarding. Bowel sounds present. GENITOURINARY: Without palpable bladder distension. MUSCULOSKELETAL: Status post right BKA. Left foot cool to touch; several toes with necrotic ulcerations on left foot. NEUROLOGICAL: Awake, intermittently following simple commands. PSYCHIATRIC: Calm. Diagnostic Tests Laboratory: Laboratory Results - last 72 hr 01/06/18 01/06/18 01/07/18 16:14 20:56 01:29 WBC RBC Hgb Hct MCV MCH MCHC RDW Plt Count MPV Sodium Potassium Chloride Carbon Dioxide Anion Gap BUN Creatinine Estimated GFR POC Glucose 146 H 231 H 208 H Random Glucose Calcium Phosphorus Magnesium Blood Type Antibody Screen MTS Gel Crossmatch 01/07/18 01/07/18 01/07/18 04:33 09:23 12:12 WBC RBC Hgb Hct MCV MCH MCHC RDW Plt Count MPV Sodium 146 H Potassium 2.6 L* D Chloride 112 H Carbon Dioxide 24.8 Anion Gap 9 BUN 11 Creatinine 0.72 Estimated GFR 85 L POC Glucose 197 H 281 H Random Glucose 153 H Calcium 8.7 Phosphorus Magnesium Blood Type Antibody Screen MTS Gel Crossmatch 01/07/18 01/07/18 01/08/18 15:22 21:36 00:12 WBC RBC Hgb Hct MCV MCH MCHC RDW Plt Count MPV Sodium Potassium Chloride Carbon Dioxide Anion Gap BUN Creatinine Estimated GFR POC Glucose 139 H 398 H 366 H Random Glucose Calcium Phosphorus Magnesium Blood Type Antibody Screen MTS Gel Crossmatch 01/08/18 01/08/18 01/08/18 03:21 07:55 08:30 WBC RBC Hgb Hct MCV MCH MCHC RDW Plt Count MPV Sodium 149 H Potassium 3.9 D Chloride 120 H D Carbon Dioxide 19.1 L Anion Gap 10 BUN 19 H Creatinine 0.75 Estimated GFR 81 L POC Glucose 227 H 153 H Random Glucose 136 H Calcium 9.6 D Phosphorus Magnesium Blood Type Antibody Screen MTS Gel Crossmatch 01/08/18 01/08/18 01/08/18 10:07 10:07 11:12 WBC 11.1 H RBC 2.81 L Hgb 8.7 L Hct 26.0 L MCV 92.5 MCH 31.1 MCHC 33.7 RDW 17.3 H Plt Count 312 D MPV 9.1 Sodium 149 H Potassium 4.0 Chloride 119 H Carbon Dioxide 19.8 L Anion Gap 10 BUN 19 H Creatinine 0.75 Estimated GFR 81 L POC Glucose 202 H Random Glucose 184 H Calcium 9.7 Phosphorus Magnesium Blood Type Antibody Screen MTS Gel Crossmatch 01/08/18 01/08/18 01/08/18 11:45 13:08 17:42 WBC RBC Hgb Hct MCV MCH MCHC RDW Plt Count MPV Sodium Potassium Chloride Carbon Dioxide Anion Gap BUN Creatinine Estimated GFR POC Glucose 228 H 338 H Random Glucose Calcium Phosphorus Magnesium Blood Type O Negative Antibody Screen Negative MTS Gel Crossmatch See Detail 01/09/18 01/09/18 01/09/18 04:18 07:21 07:41 WBC RBC Hgb Hct MCV MCH MCHC RDW Plt Count MPV Sodium 149 H Potassium 4.1 Chloride 120 H Carbon Dioxide 19.5 L Anion Gap 10 BUN 34 H Creatinine 1.07 H Estimated GFR 54 L POC Glucose 303 H 324 H Random Glucose 300 H D Calcium 9.7 Phosphorus 0.7 L Magnesium 2.6 H Blood Type Antibody Screen MTS Gel Crossmatch 01/09/18 01/09/18 11:17 13:17 WBC RBC Hgb Hct MCV MCH MCHC RDW Plt Count MPV Sodium 151 H Potassium 3.9 Chloride 120 H Carbon Dioxide 22.0 Anion Gap 9 BUN 34 H Creatinine 0.82 Estimated GFR 73 L POC Glucose 256 H Random Glucose 242 H Calcium 9.6 Phosphorus Magnesium Blood Type Antibody Screen MTS Gel Crossmatch Result Diagrams: 01/08/18 10:07 01/09/18 13:17 Microbiology: Microbiology 12/24/17 12:20 Acid Fast Bacilli Smear - Final Tissue - Buttock No acid fast bacilli seen Mycobacterial Culture - Preliminary No growth in 2 weeks Procedures: 12/15/2017: Endotracheal intubation 12/15/2017: Left subclavian central line placement 12/15/2017: NGT placement 12/15/2017: I&D with wound HEMOVAC placement 12/18/2017: I&D with wound VAC change 12/21/2017: I&D with wound VAC change 12/24/2017: I&D with wound VAC change 12/28/2017: perc trach, wound vac change to back, buttock, posterior thigh 12/31/2017: I&D with wound VAC change, removal of coccyx bone 01/04/2018: I&D with wound VAC change 01/08/2018: I&D with wound VAC change, partial closure Assessment and Plan - Disease Oriented Problem List (1) Septic shock with acute organ dysfunction due to anaerobic bacteria (2) Acute respiratory failure (3) Type 2 diabetes mellitus with hyperosmolar nonketotic hyperglycemia (4) Necrotizing fasciitis (5) MARIO (acute kidney injury) (6) Lactic acidosis - Symptom Scale (1) Pain 0-10 Scale: Unable to quantify (2) Debility 0-10 Scale: Unable to quantify Pertinent Non-Medical Issues: Psychosocial:Originally from [place]. Currently . Spiritual: No taoism affiliation. Legal: Per [place] statutes, in the absence of written advanced directives health care proxy decision making will fall to the patient's , Tyrone. Ethical issues impacting care: No known ethical issues impacting care at this time. Important Contacts: Tyrone Middleton, : [phone] Sister Linette Lebron , Prognosis: Patient is critically ill and in septic shock with necrotizing fasciitis secondary to a chronic sacral decubitus. Upon arrival to the ED, the patient was hyperglycemic with a blood glucose of 610, severely dehydrated and in profound shock. She is intubated on mechanical ventilation requiring pressor support status post wide excision of the involved soft tissue. Patient will require further debridement in the future. She remains hemodynamically unstable and critically ill. Very high risk for further complications, continue decline and . Very poor overall prognosis for meaningful recovery. Code Status: Full Code Plan: * CODE STATUS: FULL CODE. Risks, benefits and limitations of CPR were discussed at length with patient's on 01/09. * HEALTHCARE DECISION-MAKING: Patient lacks insight and judgment related to her complicated clinical condition. It is unclear if she will regain capacity for medical decision-making. Per [place] statute, in the absence of written advanced directives healthcare proxy decision making falls to the patient's , Tyrone Middleton. He has accepted this role. * GOALS OF CARE: 01/09/18: As per patient's , goals remain aggressive at this time to include full code. Shared concerns of patient's ongoing clinical medical issues to include persistent encephalopathy, necrotizing fasciitis to back and buttocks requiring frequent surgical debridements, profound physical deconditioning, dysphagia and malnutrition, respiratory distress status post tracheostomy, and multiple chronic ongoing medical issues to include diabetes and peripheral vascular disease with gangrene to lower extremity. Review quality of life in the setting of prolonged hospitalization with multiple surgical interventions. Patient already debilitated at baseline with multiple chronic comorbidities. Reviewed short-term and long-term prognosis to include prolonged hospitalization and rehabilitation attempts, likely long-term retirement placement given the above. Discussed setting limitations to treatment. Reviewed risks, benefits and limitations of CPR given patient's clinical condition. requesting to continue current medical management to include full code at this time, allow a few more days to reevaluate patient's clinical condition and prognosis. was encouraged to contact patient's family for support with goals of care. appreciative of telephone call, receptive to palliative care follow-up. * Symptom management: = Pain: Multifactoral. Patient has a long history of chronic conditions. Possible contributing factors include severe peripheral arterial disease, recent BKA, peripheral neuropathy, sepsis, necrotizing fasciitis, invasive lines, immobility. Currently on fentanyl patch 50 mcg q72hrs. Appears comfortable at time of my visit, no further recommendations. = Debility/profound physical deconditioning: Patient with uncontrolled diabetes with severe peripheral arterial disease and smoking. 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 Debility anticipated to worsen. Patient will likely require a prolonged rehabilitation course if she survives this hospitalization. * Palliative care contact information was provided to the patient's and sister. * Palliative care will continue to follow this patient throughout her hospitalization to establish trust, assist with symptom management and clarification of medical treatment goals. Time Spent Total Floor Time (mins): 36 (Total time to include review of medical records, physical exam, goals of care conversation with patient's .) >50% Time in Counseling or Coordination of Care: Yes (Total visit time = 36 minutes; > 50% spent counseling/coordinating care) Attestation Attestation: To help prompt me to consider important information that might be impacting today's encounter and assessment, information from prior notes written by myself or my colleagues may have been "brought forward" into today's note. My signature on this note, however, is an attestation that I personally performed the exam, history, and/or decision-making noted today, and, unless otherwise indicated, the interactions with patient, family, and staff as well as the review of records all occurred today. I also attest that the listed assessment and stated plan reflect my best clinical judgment today based on the combination of historical information, prior notes, and today's exam/ interactions. When time spent is documented, it refers only to time spent today by the signer, or if indicated, combined time spent today by collaborating physician/nurse practitioner.
[2018-01-09] MEDS: metroNIDAZOLE 500 MG Tablet PO SCH (21:35)
[2018-01-10] MEDS: Oral Hygiene Kit OROPHARYNG SCH ×4 (00:32→17:39)
[2018-01-10] MEDS: Insulin NovoLIN Regular Correctional Sugar Inj SQ SCH ×6 (00:32→22:42)
[2018-01-10] MEDS ORDERED: Morphine Sulfate Inj 2 MG/ML Vial IV.PUSH ONE (00:36)
[2018-01-10] MEDS: Albumin Human 25% Inj 100 ML IV.SIG SCH ×2 (02:15→13:08)
[2018-01-10] MEDS: metroNIDAZOLE 500 MG Tablet PO SCH ×3 (05:46→22:37)
[2018-01-10 06:34] LABS: Calcium 9.8 mg/dL (8.5-10.1); Carbon Dioxide 23.5 meq/L (21.0-32.0); Potassium 3.8 meq/L (3.5-5.1)
[2018-01-10] MEDS: Famotidine PF Inj 20 MG/2 ML Vial IV.PUSH SCH ×2 (09:06→22:38)
[2018-01-10] MEDS: Metoprolol Tartrate 50 MG Tablet PO SCH ×2 (09:06→22:37)
[2018-01-10] MEDS: hydrALAZINE 50 MG Tablet PO SCH ×3 (09:06→17:39)
[2018-01-10] MEDS: Potassium Bicarbonate 25 MEQ Effervescent Tablet NG/OG SCH ×2 (09:06→22:37)
[2018-01-10] MEDS: Lisinopril 5 MG Tablet PO SCH (09:06)
[2018-01-10] MEDS: Senna/Docusate Sodium 8.6/50 MG Tablet PO SCH ×2 (09:06→22:37)
[2018-01-10] MEDS: Chlorhexidine 0.12% Oral Kit 15 ML UDC OROPHARYNG SCH ×2 (09:24→22:38)
--- NOTE | 2018-01-10 15:33 | MB ---
cc: Lily Boucher DPM DATE: 01/10/2018 REASON FOR CONSULTATION: Left foot wound. HISTORY OF PRESENT ILLNESS: The patient is a 51-year-old female who was admitted to the hospital for necrotizing fasciitis in the lower back. She has had multiple procedures and surgeries. Left foot wound has been undergoing Betadine treatments daily. The patient is sedated and the information was gleaned from her chart. PHYSICAL EXAMINATION: The left lower extremity muscle strength absent. Lower extremity left side is warm to warm proximal to distal. No active drainage. Ulcerated keratotic tissues on the left second, third, and fourth digits. The second is likely down to tendon. There is no exposed bone, but the Betadine makes it difficult to ascertain. ASSESSMENT AND PLAN: 1. Left foot wound. 2. Peripheral vascular disease. 3. Edema. PLAN: This patient is to continue local wound care. I will convert to Santyl and apply daily with DSD. No surgical plans for this high risk patient. At this point, I recommend palliative care. I will continue to follow this patient once a week while she is in-house. The patient may reconsult with any acute changes in presentation. Lily Boucher DPM SR/ts , 03:19 PM , 03:24 PM
--- NOTE | 2018-01-10 17:23 | P.PNIM ---
Subjective Interval history: 52-year-old f admitted with severe sepsis and septic shock from necrotizing fasciitis of the buttocks and left thigh, s/p multiple debridements and tracheostomy for respiraotry failure, transferred from icu , failed swallow eval and continues on tube feeds via dobhoff, rectal management system in place for diarrhea, per nursing high residuals intermittently feeding on hold prn, pt seen and examined, patient is awake but very weak, no other specific complaints. She remains a bit tachycardic, only follows some commands minimally Physical Exam Vital signs: Last Vital Signs Temp 98.9 F 01/10/18 12:00 Pulse 110 H 01/10/18 16:00 Resp 33 H 01/10/18 16:00 BP 139/76 01/10/18 12:00 Pulse Ox 99 01/10/18 12:00 Intake & Output 01/08/18 01/09/18 01/10/18 01/11/18 06:59 06:59 06:59 06:59 Intake Total 1617 / 1617 700 / 700 1200 / 1200 Output Total 2425 / 2425 1425 / 1425 1130 / 1130 Balance -808 / -808 -725 / -725 70 / 70 Weight 59.8 kg 60 kg 59.9 kg gen-chronically ill appearing w 52yo f neck -trach in place no erythema or purulence lungs decreased bs bases no wheeze no rhonchi abd soft flat nondt pos bs nontender wound vac in place on buttocks ext R bka, left foot bandaged, gangrenous appearing toes 2-4, no significant edema, dp pulse +3, follows some commands, skin warm dry decreased turgor Urinary Catheter Management 1: Cath placed during this visit: yes Urethral indwelling: Yes Reason for continuing: Severe pressure ulcer/wound Insertion date: 12/15/17 Results Labs CBC & Chem 7: 01/11/18 06:46 01/11/18 06:46 Procedures Procedures: - Preoperative Diagnosis (1) Necrotizing fasciitis of pelvic region and thigh - Postoperative Diagnosis (1) Necrotizing fasciitis of pelvic region and thigh Procedure: i and d with vac change, partial closure Anesthesia: GETA Surgeon: Ventura Bazzi MD Pathology: none sent Operation and Findings: bleeding granulation, scant fibropurulence Assessment and Plan Plan -ACUTE METABOLIC ENCEPHALOPATHY improving, sluggish mentation, increase oob, activity as tolerated. -SEVERE SEPTIC SHOCK - Improved, -ACUTE HYPOXIC /HYPERCARBIC RESPIRATORY FAILURE - improving status post Tracheostomy place 12/28/17 T Piece trials are successful -MYOCARDIAL DYSFUNCTION secondary to septic shock/Fluid Overload s/p agressive diuresis - improved, stable, cont metoprolol -ACUTE NECROTIZING FASCITITIS of buttocks and left thigh s/p multiple debridements/wound vac, continue abx daptomycin,zosyn and diflucan per ID, cont wound care per sx -DMII/brittle DM uncontrolled - cont insulin sliding scale and resume levemir, enteral nutrition per dobhoff as tolerated, if continues to require npo will need to address peg? -ACUTE DVT LEFT UEXT - - DVT left internal jugular, subclavian, axillary and distal arm veins. - Cannot anticoagulate secondary to acute blood loss anemia requiring blood transfusion, frequent surgeries, high bleeding risk -SEVERE PROTEIN CALORIE MALNUTRITION prealbumin 5 on 12/18 Daily BMP and Magnesium and Phosphorus, Glucerna 1.5 at 50 ml per hour Dietitian following -ANEMIA of acute blood loss and chronic dz - mvi, transfuse prn, monitor hh -HYPERNATREMIA - increase free water per dht -GANGRENE w ulceration Left foot - wound care per podiatry recommendations and follow up with podiatry, may need surgical intervention at some point -Prophylaxis - Pepcid for GI ulcer prophylaxis - SCDs for DVT prophylaxis - Hold chemical DVT prophylaxis until ongoing surgical decisions regarding further debridement are made Progress Note: Quality VTE Deep Vein Thrombosis/Pulmonary Embolism Present on Admission: No
[2018-01-11] MEDS: Oral Hygiene Kit OROPHARYNG SCH ×4 (00:24→18:34)
[2018-01-11] MEDS: Insulin NovoLIN Regular Correctional Sugar Inj SQ SCH ×6 (00:24→21:18)
[2018-01-11] MEDS: Albumin Human 25% Inj 100 ML IV.SIG SCH ×2 (03:10→13:12)
[2018-01-11] MEDS: metroNIDAZOLE 500 MG Tablet PO SCH ×3 (07:08→21:26)
[2018-01-11] MEDS: Acetaminophen 650 MG Supp RECTAL PRN (07:10)
[2018-01-11 07:38] LABS: Hematocrit 24.9 % (35.0-46.0); Mean Corpuscular Hemoglobin 30.6 pg (27.0-34.0); Mean Corpuscular Volume 95.6 fL (80.0-100.0); Mean Platelet Volume 9.9 fL (7.0-11.0); Platelet Count 258 th/mm3 (150-450); Red Blood Count 2.61 mil/mm3 (4.00-5.30); Red Cell Distribution Width 18.7 % (11.6-17.2); White Blood Count 13.4 th/mm3 (4.0-11.0)
[2018-01-11 08:31] LABS: Calcium 9.4 mg/dL (8.5-10.1); Carbon Dioxide 26.9 meq/L (21.0-32.0); Potassium 5.1 meq/L (3.5-5.1)
[2018-01-11] MEDS: Famotidine PF Inj 20 MG/2 ML Vial IV.PUSH SCH ×2 (08:40→21:20)
[2018-01-11] MEDS: Metoprolol Tartrate 50 MG Tablet PO SCH ×2 (09:58→21:19)
[2018-01-11] MEDS: Lisinopril 5 MG Tablet PO SCH (09:58)
[2018-01-11] MEDS: Senna/Docusate Sodium 8.6/50 MG Tablet PO SCH ×2 (09:58→21:19)
[2018-01-11] MEDS: hydrALAZINE 50 MG Tablet PO SCH ×3 (09:58→17:43)
[2018-01-11] MEDS: Potassium Bicarbonate 25 MEQ Effervescent Tablet NG/OG SCH ×2 (09:59→21:20)
--- NOTE | 2018-01-11 15:32 | P.PNID ---
Subjective Remarks: Patient remains lethargic but responds to commands. On T-piece. Temp of 101 earlier. Has loose stools and dignishield. This is a 52-year-old white female who was brought to the emergency department after she fell at home. The patient was noted to have profound weakness. She was evaluated in the emergency department and at that time had normal temperature and white blood cell count was also normal. She underwent CT scan of the abdomen and pelvis that showed extensive subcutaneous and soft tissue gas bilaterally with the left greater than right, most severe in the left gluteal region and extending into the proximal posterior thigh soft tissue and air-fluid dissecting through the gluteal musculature. Antibiotics: Diflucan. Allergies/Adverse Reactions: Allergies No Known Allergies Allergy (Verified 12/15/17 07:54) Objective Vital Signs 01/10/18 16:00 01/10/18 20:00 01/10/18 20:01 Temperature 99.0 F 100.1 F H Pulse Rate 118 H 115 H 114 H Respiratory Rate 38 H 20 28 H Blood Pressure 129/67 122/60 Pulse Oximetry 94 L 96 98 01/10/18 23:36 01/11/18 00:00 01/11/18 00:20 Temperature 101.1 F H Pulse Rate 102 H 112 H Respiratory Rate 22 20 Blood Pressure 129/66 Pulse Oximetry 95 96 01/11/18 03:44 01/11/18 03:54 01/11/18 04:00 Temperature 101.1 F H Pulse Rate 106 H 118 H Respiratory Rate 28 H 22 20 Blood Pressure 115/60 Pulse Oximetry 97 01/11/18 08:00 01/11/18 12:00 01/11/18 12:20 Temperature 98.6 F 98.6 F Pulse Rate 116 H 105 H 90 Respiratory Rate 16 16 20 Blood Pressure 123/62 133/68 Pulse Oximetry 96 98 Intake & Output 01/10/18 01/11/18 01/11/18 18:59 06:59 18:59 Intake Total 400 / 400 100 / 100 Output Total 275 / 275 300 / 300 Balance -275 / -275 100 / 100 100 / 100 Weight 60.3 kg Intake: IV 400 / 400 100 / 100 Flexbumin 25% Inj 100 ML @ 60 100 / 100 100 / 100 mls/hr IV.SIG Q12H [facility] Rx#: [id number] Diflucan 400 mg Premix Bag 200 200 / 200 ML @ 100 mls/hr IV.SIG Q24H [facility] Rx#:[id number] Output: Urine 300 / 300 Urine Amount (Catheter) 275 / 275 1 275 / 275 Other: Mode Setting Posterior Sacrum Continuous 12/24/17 12:20 Tissue - Buttock Acid Fast Bacilli Smear - Final No acid fast bacilli seen 12/24/17 12:20 Tissue - Buttock Mycobacterial Culture - Preliminary No growth in 2 weeks Lab - Hematology Results 01/11/18 06:46 WBC 13.4 H RBC 2.61 L Hgb 8.0 L Hct 24.9 L MCV 95.6 MCH 30.6 MCHC 32.0 RDW 18.7 H Plt Count 258 MPV 9.9 Lab - Chemistry Results 01/08/18 01/09/18 01/09/18 21:46 00:40 16:42 Sodium Potassium Chloride Carbon Dioxide Anion Gap BUN Creatinine Estimated GFR POC Glucose 299 H 305 H 304 H Random Glucose Calcium 01/09/18 01/10/18 01/10/18 21:19 00:18 04:30 Sodium Potassium Chloride Carbon Dioxide Anion Gap BUN Creatinine Estimated GFR POC Glucose 394 H 416 H 353 H Random Glucose Calcium 01/10/18 01/10/18 01/10/18 05:30 08:36 12:07 Sodium 153 H Potassium 3.8 Chloride 120 H Carbon Dioxide 23.5 Anion Gap 10 BUN 48 H Creatinine 1.25 H Estimated GFR 45 L POC Glucose 366 H 344 H Random Glucose 387 H D Calcium 9.8 01/10/18 01/10/18 01/11/18 16:47 22:41 03:12 Sodium Potassium Chloride Carbon Dioxide Anion Gap BUN Creatinine Estimated GFR POC Glucose 173 H 212 H 328 H Random Glucose Calcium 01/11/18 01/11/18 01/11/18 06:46 08:26 12:34 Sodium 155 H Potassium 5.1 D Chloride 122 H Carbon Dioxide 26.9 Anion Gap 6 BUN 63 H Creatinine 1.35 H Estimated GFR 41 L POC Glucose 318 H 393 H Random Glucose 321 H Calcium 9.4 Imaging: ITS Impressions Femur X-Ray 12/15/17 07:05 CONCLUSION: No fracture is identified. There is extensive soft tissue air in the right gluteal region and extending into the proximal and mid posterior thigh. The soft tissue air suggests an open wound. Pelvis X-Ray 12/15/17 07:05 CONCLUSION: No fracture is identified. However, there is extensive soft tissue air in the left gluteal region and left proximal thigh. Pelvis CT 12/15/17 07:52 CONCLUSION: 1. No fracture is identified. 2. Extensive subcutaneous and soft tissue gas bilaterally, left greater than right. It is most severe in the left gluteal region and extends into the proximal posterior thigh. The soft tissue air dissects through the gluteal musculature. There is adjacent subcutaneous edema. Foot X-Ray 12/18/17 00:00 CONCLUSION: Remote small avulsion fracture at the fifth toe. No acute bony abnormality. Venous Doppler Study 12/22/17 00:00 CONCLUSION: Extensive deep vein thrombosis of the left upper extremity. Chest X-Ray 12/31/17 06:00 CONCLUSION: 1. Tracheostomy tube is now seen. Endotracheal tube is no longer seen. 2. Bilateral pulmonary opacity is again seen with interval increase in the right lower lung zone opacity. No change in the left. Abdomen X-Ray 01/08/18 00:08 CONCLUSION: Feeding tube tip is in the region of the distal stomach Physical Exam: PHYSICAL EXAMINATION: GENERAL: Awake. Sedated. HEENT: Pale sclera. Oropharynx mucosa is moist. No thrush. NECK: Supple. No adenopathy or swelling. LUNGS: Decreased breath sounds with slight rhonchi at the bases. HEART: irregular S1 and S2. 1-2/6 systolic murmur at the left sternal border. ABDOMEN: Bowel sounds present, soft. BACK: Surgical wound post debridement across the lower back, buttock and thigh. Vac in place. EXTREMITIES: No clubbing, no cyanosis or edema. abrasion with dry necrotic changes at left dorsal toes 2-4. SKIN: No diffuse rash. Scattered ecchymotic lesions. NEUROLOGIC: Unable to assess. PSYCHIATRIC: Calm and cooperative. Assessment and Plan - Plan IMPRESSION: 1. Necrotizing fasciitis of the back, buttock and thigh. Talia albicans and Talia tropicalis. 2. Septic shock. Responded to broad-spectrum antibiotics. 3. Acute respiratory failure. 4. Chronic kidney disease. 5. Leukocytosis. Improved. 6. Low-grade fever. RECOMMENDATIONS: 1. Continue Diflucan. 2. Continue Flagyl p.o. empiric anaerobic coverage. 2. Monitor clinical status.
[2018-01-11] MEDS: Collagenase Oint 30 GM Tube TOPICAL SCH (17:52)
[2018-01-11] MEDS: Chlorhexidine 0.12% Oral Kit 15 ML UDC OROPHARYNG SCH ×2 (18:35→21:20)
[2018-01-11] MEDS ORDERED: Chlorhexidine Gluconate 2% 1 Pack (2 Cloths) TOPICAL ONE (20:24)
[2018-01-11] MEDS ORDERED: Metoprolol Tartrate 25 MG Tablet PO SCH (20:30)
[2018-01-11] MEDS ORDERED: Sodium Chlor 0.9% Inj 500 ML IV.SIG SCH (21:00)
[2018-01-11] MEDS: Insulin Detemir Inj 1,000 UNIT/10 ML Vial SQ SCH (21:17)
[2018-01-12] MEDS: Oral Hygiene Kit OROPHARYNG SCH ×5 (00:44→23:50)
[2018-01-12] MEDS: Albumin Human 25% Inj 100 ML IV.SIG SCH ×2 (02:17→15:17)
[2018-01-12] MEDS: Acetaminophen 650 MG Supp RECTAL PRN (02:19)
[2018-01-12] MEDS: Insulin NovoLIN Regular Correctional Sugar Inj SQ SCH ×7 (02:39→23:53)
[2018-01-12] MEDS: metroNIDAZOLE 500 MG Tablet PO SCH ×3 (05:33→21:36)
[2018-01-12] MEDS: Metoprolol Tartrate 50 MG Tablet PO SCH ×3 (07:45→20:00)
[2018-01-12] MEDS: Acetaminophen 325 MG Tablet NG/OG SCH (07:50)
[2018-01-12] MEDS ORDERED: Phenylephrine/NS 1000 MCG/10ML Syringe IV.PUSH ONE (08:02)
[2018-01-12 08:08] LABS: Calcium 9.5 mg/dL (8.5-10.1); Carbon Dioxide 27.5 meq/L (21.0-32.0); Potassium 5.1 meq/L (3.5-5.1)
[2018-01-12] MEDS: Chlorhexidine 0.12% Oral Kit 15 ML UDC OROPHARYNG SCH ×2 (11:40→20:01)
[2018-01-12] MEDS: Potassium Bicarbonate 25 MEQ Effervescent Tablet NG/OG SCH ×2 (11:42→20:00)
[2018-01-12] MEDS: Senna/Docusate Sodium 8.6/50 MG Tablet PO SCH ×2 (11:45→20:00)
[2018-01-12] MEDS: Famotidine PF Inj 20 MG/2 ML Vial IV.PUSH SCH ×2 (11:46→20:00)
[2018-01-12] MEDS: Lisinopril 5 MG Tablet PO SCH (11:47)
[2018-01-12] MEDS: hydrALAZINE 50 MG Tablet PO SCH ×3 (11:47→17:43)
[2018-01-12] MEDS: Collagenase Oint 30 GM Tube TOPICAL SCH ×2 (11:48→17:43)
[2018-01-12] MEDS: Insulin Detemir Inj 1,000 UNIT/10 ML Vial SQ SCH ×2 (13:47→20:01)
--- NOTE | 2018-01-12 18:32 | P.PNIM ---
Subjective Interval history: 52-year-old f admitted with severe sepsis and septic shock from necrotizing fasciitis of the buttocks and left thigh, s/p multiple debridements and tracheostomy for respiratory failure, transferred from icu , failed swallow eval and continues on tube feeds via dobhoff, rectal management system in place for diarrhea, per nursing high residuals intermittently feeding on hold prn, pt seen and examined, patient is awake , mouths some response and follows some commands but remains very weak, no complaints or events overnight per nursing Physical Exam Vital signs: Last Vital Signs Temp 99.8 F H 01/12/18 16:00 Pulse 88 01/12/18 16:24 Resp 18 01/12/18 16:24 BP 114/56 L 01/12/18 16:00 Pulse Ox 98 01/12/18 16:23 Intake & Output 01/10/18 01/11/18 01/12/18 01/13/18 06:59 06:59 06:59 06:59 Intake Total 1200 / 1200 400 / 400 1000 / 1000 800 / 800 Output Total 1430 / 1430 575 / 575 1600 / 1600 210 / 210 Balance -230 / -230 -175 / -175 -600 / -600 590 / 590 Weight 60.3 kg 60.3 kg 62 kg gen-chronically ill appearing w 52yo f neck -trach in place no erythema or purulence lungs decreased bs bases no wheeze no rhonchi abd soft flat nondt pos bs nontender wound vac in place on buttocks ext R bka, left foot bandaged, gangrenous appearing toes 2-4, no significant edema, dp pulse +3, follows some commands, 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 to jigger operator hands, 1/5 strength skin warm dry decreased turgor Urinary Catheter Management 1: Cath placed during this visit: yes Urethral indwelling: Yes Reason for continuing: Severe pressure ulcer/wound Insertion date: 12/15/17 Results Labs CBC & Chem 7: 01/11/18 06:46 01/12/18 06:33 Procedures Procedures: - Preoperative Diagnosis (1) Necrotizing fasciitis of pelvic region and thigh - Postoperative Diagnosis (1) Necrotizing fasciitis of pelvic region and thigh Procedure: i and d with vac change, partial closure Anesthesia: GETA Surgeon: Ventura Bazzi MD Pathology: none sent Operation and Findings: bleeding granulation, scant fibropurulence Assessment and Plan Plan -ACUTE METABOLIC ENCEPHALOPATHY improving, sluggish mentation, increase oob, activity as tolerated. -SEVERE SEPTIC SHOCK - Improved, -ACUTE HYPOXIC /HYPERCARBIC RESPIRATORY FAILURE - improving status post Tracheostomy place 12/28/17 T Piece trials are successful -MYOCARDIAL DYSFUNCTION secondary to septic shock/Fluid Overload s/p aggressive diuresis - improved, stable, cont metoprolol -ACUTE NECROTIZING FASCITITIS of buttocks and left thigh s/p multiple debridements/wound vac, continue abx daptomycin,zosyn and diflucan per ID, cont wound care per sx -DMII/brittle DM uncontrolled - cont insulin sliding scale and titrate levemir , enteral nutrition per dobhoff as tolerated, if continues to require npo will need to address peg? -ACUTE DVT LEFT UEXT - - DVT left internal jugular, subclavian, axillary and distal arm veins. - Cannot anticoagulate secondary to acute blood loss anemia requiring blood transfusion, frequent surgeries, high bleeding risk -SEVERE PROTEIN CALORIE MALNUTRITION prealbumin 5 on 12/18 Daily BMP and Magnesium and Phosphorus, Glucerna 1.5 at 50 ml per hour Dietitian following -ANEMIA of acute blood loss and chronic dz - mvi, transfuse prn, monitor hh -HYPERNATREMIA - increase free water per dht, add D5w iv for hydration today, -MARIO w prerenal azotemia and hyperchloridemia, will add bolus of hypotonic fluid x 1 today. -GANGRENE w ulceration Left foot - wound care per podiatry recommendations and follow up with podiatry, may need surgical intervention at some point -DYSPHAGIA - cont dht feeds as tolerated -MUSCLE WEAKNESS /critical care myopathy - cont pt/ot, will require rehab/ placement -Prophylaxis - Pepcid for GI ulcer prophylaxis - SCDs for DVT prophylaxis - Hold chemical DVT prophylaxis until ongoing surgical decisions regarding further debridement are made Progress Note: Quality VTE Deep Vein Thrombosis/Pulmonary Embolism Present on Admission: No
--- NOTE | 2018-01-12 18:48 | P.OP ---
- Preoperative Diagnosis (1) Necrotizing fasciitis of pelvic region and thigh - Postoperative Diagnosis (1) Necrotizing fasciitis of pelvic region and thigh Date of procedure: 01/12/18 Procedure: Irrigation and debridement 50 cm subcutaneous tissue and fascia pelvis and posterior left thigh Replacement of negative pressure VAC dressing greater than 50 cm size Surgeon: Kip Gonsales MD Towboat Captain: Beverly Angel CSTFA Estimated blood loss (mL): 10 IV fluids (mL): 500 Pathology: none sent Operation and Findings: Findings: Left side pelvis and buttock 10 x 15 cm defect with 20 cm of undermining down the left posterior thigh. Right side pelvis and buttock 17 x 20 cm defect with 20 cm undermining laterally under the right skin flap. Patient was taken to the operating room and placed under general anesthesia while still in the bed. She was then rotated over to the prone position. Old VAC dressing was removed. The pelvis and thighs were prepped and draped in the field. Time-out was taken, confirming the correct patient, site, and procedures to be performed. Fascia and subcutaneous tissue that was necrotic was debrided away sharply. Approximately 50 cm of tissue was removed. This included some fascia as well. When this was completed, the skin bridge across the central portion of the wound was closed further with 2 additional #2 Prolene sutures. The tunnel along the left thigh had placement of a VAC sponge. Additional VAC sponges were fit and cut to the defects. An additional piece was placed in the left pelvis superiorly, and under the right lateral skin flap. Sponges were secured in place with marcelle. The entire assembly was made adherent with multiple plastic strips. The sponges were sucked down with 2 circular discs. Good seal was achieved. The patient was taken back to the recovery room in stable condition. Sponge needle and instrument counts were reported to be correct. Patient tolerated the procedure well.
[2018-01-12] MEDS ORDERED: Sodium Chloride 0.45 % Inj 1,000 ML IV.CONT SCH (19:00)
[2018-01-13] MEDS: Albumin Human 25% Inj 100 ML IV.SIG SCH ×4 (02:22→21:55)
[2018-01-13] MEDS: Oral Hygiene Kit OROPHARYNG SCH ×3 (04:00→17:11)
[2018-01-13] MEDS: Insulin NovoLIN Regular Correctional Sugar Inj SQ SCH ×5 (04:11→20:06)
[2018-01-13] MEDS: metroNIDAZOLE 500 MG Tablet PO SCH ×3 (05:13→21:56)
[2018-01-13 08:14] LABS: Baso # (Auto) 0.1 th/mm3 (0.0-0.2); Baso % (Auto) 0.6 % (0.0-2.0); Eos # (Auto) 0.2 th/mm3 (0.0-0.4); Eos % (Auto) 1.5 % (0.0-4.0); Hematocrit 23.2 % (35.0-46.0); Hemoglobin 7.6 gm/dL (11.6-15.3); Lymph # (Auto) 2.6 th/mm3 (1.0-4.8); Lymph % (Auto) 21.2 % (9.0-44.0); Mean Corpuscular HGB Conc 32.6 % (32.0-36.0); Mean Corpuscular Hemoglobin 31.2 pg (27.0-34.0); Mean Corpuscular Volume 95.7 fL (80.0-100.0); Mono # (Auto) 0.6 th/mm3 (0.0-0.9); Mono % (Auto) 5.1 % (0.0-8.0); Neut # (Auto) 8.9 th/mm3 (1.8-7.7); Neut % (Auto) 71.6 % (16.0-70.0); Platelet Count 232 th/mm3 (150-450); Red Blood Count 2.42 mil/mm3 (4.00-5.30); Red Cell Distribution Width 19.1 % (11.6-17.2); White Blood Count 12.5 th/mm3 (4.0-11.0)
[2018-01-13 08:23] LABS: Calcium 9.1 mg/dL (8.5-10.1); Carbon Dioxide 27.7 meq/L (21.0-32.0); Potassium 4.8 meq/L (3.5-5.1)
[2018-01-13] MEDS: Metoprolol Tartrate 50 MG Tablet PO SCH ×2 (09:07→20:05)
[2018-01-13] MEDS: Potassium Bicarbonate 25 MEQ Effervescent Tablet NG/OG SCH ×2 (09:07→20:05)
[2018-01-13] MEDS: Famotidine PF Inj 20 MG/2 ML Vial IV.PUSH SCH ×2 (09:09→20:05)
[2018-01-13] MEDS: Senna/Docusate Sodium 8.6/50 MG Tablet PO SCH ×2 (09:09→20:05)
[2018-01-13] MEDS: hydrALAZINE 50 MG Tablet PO SCH ×3 (09:09→17:11)
[2018-01-13] MEDS: Lisinopril 5 MG Tablet PO SCH (09:09)
[2018-01-13] MEDS: Insulin Detemir Inj 1,000 UNIT/10 ML Vial SQ SCH ×2 (09:12→20:05)
[2018-01-13] MEDS: Chlorhexidine 0.12% Oral Kit 15 ML UDC OROPHARYNG SCH ×2 (09:14→20:06)
[2018-01-13] MEDS: Collagenase Oint 30 GM Tube TOPICAL SCH ×2 (09:14→18:44)
--- NOTE | 2018-01-13 11:09 | P.PNGS ---
Subjective Interval history: patient nonverbal, small leak in VAC per RN Physical Exam Vital signs: Vital Signs 01/12/18 12:00 01/12/18 13:10 01/12/18 16:00 Temperature 97.8 F 99.8 F H Pulse Rate 95 H 88 114 H Respiratory Rate 18 18 20 Blood Pressure 93/51 L 114/56 L Pulse Oximetry 94 L 98 94 L 01/12/18 16:23 01/12/18 16:24 01/12/18 19:17 Temperature Pulse Rate 88 91 H Respiratory Rate 18 16 Blood Pressure Pulse Oximetry 98 01/12/18 20:00 01/13/18 00:00 01/13/18 03:16 Temperature 100.6 F H 100.5 F H Pulse Rate 113 H 103 H Respiratory Rate 20 20 Blood Pressure 119/57 L 136/59 L Pulse Oximetry 95 97 97 01/13/18 05:06 01/13/18 07:51 01/13/18 08:39 Temperature 100.5 F H Pulse Rate 87 119 H 108 H Respiratory Rate 34 H 20 18 Blood Pressure 128/60 Pulse Oximetry 96 01/13/18 08:42 Temperature Pulse Rate Respiratory Rate Blood Pressure Pulse Oximetry 99 Intake & Output 01/12/18 01/13/18 01/13/18 18:59 06:59 18:59 Intake Total 1585 / 1585 1132 / 1132 0 / 0 Output Total 1660 / 1660 200 / 200 600 / 600 Balance -75 / -75 932 / 932 -600 / -600 Weight 61.3 kg Intake: IV 800 / 800 100 / 100 D5W Inj 500 ML @ 75 mls/hr IV. 500 / 500 CONT .[id number] [facility] Rx#:[id number] Flexbumin 25% Inj 100 ML @ 60 100 / 100 100 / 100 mls/hr IV.SIG Q12H [facility] Rx#: [id number] Diflucan 200 mg Premix Bag 100 200 / 200 ML @ 100 mls/hr IV.SIG Q24H [facility] Rx#:[id number] Oral 0 / 0 0 / 0 Tube Feeding 285 / 285 582 / 582 Water Bolus Amount 450 / 450 Anesthesia Amount 500 / 500 Output: Stool 1200 / 1200 Estimated Blood Loss 10 / 10 Urine Amount (Catheter) 200 / 200 600 / 600 1 200 / 200 Indwelling Urethral Catheter 600 / 600 Wound Vac Amount 250 / 250 200 / 200 Posterior Sacrum 250 / 250 200 / 200 Other: Mode Setting Left Foot Continuous Posterior Sacrum Continuous Continuous - Routine Exam Comments: VAC on bilateral hips and low back/gluteal region, VAC repaired - Urinary Catheter Management Indwelling Urethral Catheter Cath placed during this visit: yes Reason for continuing: Severe pressure ulcer/wound Insertion date: 01/13/18 Insertion time: 01:00 1 Cath placed during this visit: yes, but has since been removed by the nurse Urethral indwelling: Yes Reason for continuing: Severe pressure ulcer/wound Insertion date: 12/15/17 Removal date: 01/13/18 Removal time: 01:00 Results - Labs 01/13/18 07:02 01/13/18 07:02 Laboratory Results - last 24 hr 01/12/18 01/12/18 01/12/18 11:10 16:42 19:58 WBC RBC Hgb Hct MCV MCH MCHC RDW Plt Count MPV Neut % (Auto) Lymph % (Auto) [place] % (Auto) Eos % (Auto) Baso % (Auto) Neut # (Auto) Lymph # (Auto) [place] # (Auto) Eos # (Auto) Baso # (Auto) WBC Differential Differential Comment Sodium Potassium Chloride Carbon Dioxide Anion Gap BUN Creatinine Estimated GFR POC Glucose 139 H 315 H 333 H Random Glucose Calcium 01/12/18 01/13/18 01/13/18 23:49 04:07 07:02 WBC 12.5 H RBC 2.42 L Hgb 7.6 L Hct 23.2 L MCV 95.7 MCH 31.2 MCHC 32.6 RDW 19.1 H Plt Count 232 MPV 11.0 Neut % (Auto) 71.6 H Lymph % (Auto) 21.2 [place] % (Auto) 5.1 Eos % (Auto) 1.5 Baso % (Auto) 0.6 Neut # (Auto) 8.9 H Lymph # (Auto) 2.6 [place] # (Auto) 0.6 Eos # (Auto) 0.2 Baso # (Auto) 0.1 WBC Differential . Differential Comment Auto diff final Sodium Potassium Chloride Carbon Dioxide Anion Gap BUN Creatinine Estimated GFR POC Glucose 300 H 279 H Random Glucose Calcium 01/13/18 01/13/18 07:02 07:54 WBC RBC Hgb Hct MCV MCH MCHC RDW Plt Count MPV Neut % (Auto) Lymph % (Auto) [place] % (Auto) Eos % (Auto) Baso % (Auto) Neut # (Auto) Lymph # (Auto) [place] # (Auto) Eos # (Auto) Baso # (Auto) WBC Differential Differential Comment Sodium 153 H Potassium 4.8 Chloride 119 H Carbon Dioxide 27.7 Anion Gap 6 BUN 71 H Creatinine 1.32 H Estimated GFR 42 L POC Glucose 285 H Random Glucose 266 H Calcium 9.1 - Imaging Imaging: ITS Impressions Femur X-Ray 12/15/17 07:05 CONCLUSION: No fracture is identified. There is extensive soft tissue air in the right gluteal region and extending into the proximal and mid posterior thigh. The soft tissue air suggests an open wound. Pelvis X-Ray 12/15/17 07:05 CONCLUSION: No fracture is identified. However, there is extensive soft tissue air in the left gluteal region and left proximal thigh. Pelvis CT 12/15/17 07:52 CONCLUSION: 1. No fracture is identified. 2. Extensive subcutaneous and soft tissue gas bilaterally, left greater than right. It is most severe in the left gluteal region and extends into the proximal posterior thigh. The soft tissue air dissects through the gluteal musculature. There is adjacent subcutaneous edema. Foot X-Ray 12/18/17 00:00 CONCLUSION: Remote small avulsion fracture at the fifth toe. No acute bony abnormality. Venous Doppler Study 12/22/17 00:00 CONCLUSION: Extensive deep vein thrombosis of the left upper extremity. Chest X-Ray 12/31/17 06:00 CONCLUSION: 1. Tracheostomy tube is now seen. Endotracheal tube is no longer seen. 2. Bilateral pulmonary opacity is again seen with interval increase in the right lower lung zone opacity. No change in the left. Abdomen X-Ray 01/08/18 00:08 CONCLUSION: Feeding tube tip is in the region of the distal stomach Assessment and Plan - Assessment (1) Fasciitis Code(s): M72.9 - Fibroblastic disorder, unspecified Status: Acute - Plan Continue VAC next VAC change per DR. Bazzi
--- NOTE | 2018-01-13 15:21 | P.CONNP ---
History of Present Illness Service: Nephrology Consult date: 01/13/18 Requesting Physician: Nancy Gan Reason for Consult: Dehydration and acute renal failure with hypernatremia Primary Care Provider: UNKNOWN Chief Complaint: Fall at home, diabetes uncontrolled History of Present Illness: Patient is a 52-year-old female who has been admitted after found passed out on the floor, patient has severe's encephalopathy with underlying diagnosis of diabetes, peripheral vascular disease previous amputation, she was noted to have tenderness and necrotizing fasciitis and her pelvic area and left thigh, this was operated upon recently, patient noted to have high sodium of 153 and creatinine of 1.3, baseline creatinine was 0.7 start increasing over the past few days, yesterday it was 1.4, patient is getting free water at 150 cc every 4 hourly and albumin every 12 hourly, patient is nonverbal has not regained her full mental capacity, history obtained through her chart and spoke to staff. Review of Systems unobtainable due to mental condition PMFSH - History History Provided By: Patient, Medical Record - Medical History Medical History: Medical History (Last Reviewed 01/13/18 @ 15:14 by Shhabaz Smith MD) Decubital ulcer GERD (gastroesophageal reflux disease) History of Clostridium difficile colitis History of diabetic gastroparesis MDRO (multiple drug resistant organisms) resistance Onset Date: ~12/15/17 Peripheral neuropathy Peripheral vascular disease Benign hypertension Diabetes Hepatitis C virus Osteomyelitis - Surgical History Surgical History: Surgical History (Last Reviewed 01/13/18 @ 15:14 by Shahbaz Smith MD) Hx of AKA (above knee amputation) Previous section - Family History Family History: Family History (Last Reviewed 01/13/18 @ 15:14 by Shahbaz Smith MD) Mother EtOH dependence Father EtOH dependence - Social History I have reviewed the patient's Social History: Yes - Tobacco History Second Hand Smoke Exposure: Yes Tobacco Use In Past 30 Days: Yes Smoking Status: Former smoker (Per , patient quit approximately 3 weeks ago) Tobacco Type: Cigarettes Packs Per Day: 2 Smoking End Date: 6 months ago - Alcohol History How Often Do You Have a Drink Containing Alcohol: Never - Substance Use History Substance History: No History of Abuse - Immunization History Tetanus Immunization: Unable to Assess Hx Influenza Vaccine This Season: No Medications and Allergies Active Medications: Active Medications Acetaminophen (Tylenol) 650 mg NG/OG ONCE [facility] Last Admin: 01/12/18 07:50 Dose: 650 mg Acetaminophen (Tylenol Supp) 650 mg RECTAL Q4H PRN PRN Reason: FEVER Last Admin: 01/12/18 02:19 Dose: 650 mg Acetaminophen (Tylenol) 650 mg PO Q4H PRN PRN Reason: FEVER Hydrocodone Bitart/Acetaminophen ([place] 5/325) 1 tab PO Q4H PRN PRN Reason: pain 1 to 10 Last Admin: 01/13/18 09:08 Dose: 1 tab Acetylcysteine (Mucomyst 10% Neb) 2 ml NEB Q4HR NEB [facility] Last Admin: 01/13/18 13:25 Dose: 2 ml Al Hydroxide/Mg Hydroxide (Milk Of Magnesia Liq) 30 ml PO Q12H PRN PRN Reason: Mild Constipation Albuterol (Duoneb Neb (Prn)) 1 ampul NEB Q2HR NEB PRN PRN Reason: WHEEZING Last Admin: 01/13/18 13:24 Dose: 1 ampul Bisacodyl (Dulcolax Supp) 10 mg RECTAL DAILY PRN PRN Reason: SEVERE CONSITIPATION Chlorhexidine Gluconate (Peridex 0.12% Oral Kit) 15 ml OROPHARYNG BID@0800, 2000 [facility] Last Admin: 01/13/18 09:14 Dose: Not Given Collagenase (Santyl Oint) 1 applicatio TOPICAL DAILY [facility] Last Admin: 01/13/18 09:14 Dose: Not Given Dextrose (D50w Vial) 50 ml IV.PUSH UNSCH PRN PRN Reason: PER HYPOGLYCEMIA PROTOCOL Last Admin: 12/29/17 04:45 Dose: 50 ml Enoxaparin Sodium (Lovenox Inj) 30 mg SQ DAILY [facility] Last Admin: 01/07/18 09:25 Dose: 30 mg Famotidine (Pepcid Pf Inj) 10 mg IV.PUSH Q12HR [facility] Last Admin: 01/13/18 09:09 Dose: 10 mg Fentanyl (Duragesic 50 Mcg Patch.72hr) 1 patch T-DERMAL Q3D [facility] Last Admin: 01/13/18 13:10 Dose: 1 patch Glucagon (Glucagon Inj) 1 mg OTHER PRN PRN PRN Reason: for Hypoglycemia Protocol Hydralazine HCl (Apresoline Inj) 20 mg IV.PUSH Q4H PRN PRN Reason: SBP>160, DBP>90 Last Admin: 01/07/18 15:17 Dose: 20 mg Hydralazine HCl (Apresoline) 50 mg PO TID [facility] Last Admin: 01/13/18 13:08 Dose: 50 mg Fluconazole (Diflucan 200 Mg Premix Bag) 100 mls @ 100 mls/hr IV.SIG Q24H [facility] Last Infusion: 01/12/18 17:48 Dose: Infused Fluconazole (Diflucan 200 Mg Premix Bag) 100 mls @ 100 mls/hr IV.SIG Q24H [facility] Last Infusion: 01/12/18 17:48 Dose: Infused Dextrose (D5w Inj) 500 mls @ 75 mls/hr IV.CONT .Q6H40M [facility] Last Admin: 01/13/18 13:39 Dose: Not Given Albumin Human (Flexbumin 25% Inj) 100 mls @ 60 mls/hr IV.SIG Q6H [facility] Insulin Detemir (Levemir Inj) 25 unit SQ BID [facility] Last Admin: 01/13/18 09:12 Dose: 25 unit Insulin Human Regular (Novolin R Correctional Sugar Inj) 0 units SQ Q4HR [facility]; Protocol Last Admin: 01/13/18 13:14 Dose: 4 units L-Arginine/L-Glutamine/Calcium HMB (Alek Packet) 1 packet NG/OG BID [facility] Last Admin: 01/13/18 10:50 Dose: Not Given Labetalol HCl (Trandate Inj) 10 mg IV.PUSH Q4H PRN PRN Reason: SBP>160, DBP>90 Last Admin: 01/07/18 13:13 Dose: 10 mg Lactulose (Lactulose Liq) 30 ml PO DAILY PRN PRN Reason: SEVERE CONSITIPATION Lisinopril (Prinivil) 5 mg PO DAILY [facility] Last Admin: 01/13/18 09:09 Dose: 5 mg Metoprolol Tartrate (Lopressor) 50 mg PO BID [facility] Last Admin: 01/13/18 09:07 Dose: 50 mg Metronidazole (Flagyl) 500 mg PO Q8HR [facility] Last Admin: 01/13/18 13:08 Dose: 500 mg Miscellaneous Medication () 1 each OROPHARYNG 0000,0400,1200,1600 [facility] Last Admin: 01/13/18 13:14 Dose: 1 each Ondansetron HCl (Zofran Inj) 4 mg IV.PUSH Q6H PRN PRN Reason: NAUSEA OR VOMITING Last Admin: 01/03/18 23:55 Dose: 4 mg Patch Removal (Remove Old Patch) 1 each T-DERMAL Q3D [facility] Last Admin: 01/10/18 13:35 Dose: 1 each Potassium Bicarbonate (Effer-K) 25 meq NG/OG BID [facility] Last Admin: 01/13/18 09:07 Dose: 25 meq Senna/Docusate Sodium (Belinda-Colace) 1 tab PO BID [facility] Last Admin: 01/13/18 09:09 Dose: 1 tab Sennosides (Senokot) 17.2 mg PO Q12H PRN PRN Reason: Moderate Constipation Sodium Chloride (Ns Flush) 2 ml IV.FLUSH BID [facility] Last Admin: 01/13/18 09:11 Dose: 2 ml Sodium Chloride (Ns Flush) 2 ml IV.FLUSH PRN PRN PRN Reason: FLUSH AFTER USING IV ACCESS Last Admin: 01/07/18 22:06 Dose: 2 ml Sterile Water (Free Water) 200 ml G-TUBE Q4HR [facility] Terbutaline Sulfate (Brethine Inj) 1 mg SQ UNSCH PRN PRN Reason: For Extravasation Allergies Allergy/AdvReac Type Severity Reaction Status Date / Time No Known Allergies Allergy Verified 12/15/17 07:54 Home Medications Medication Instructions Recorded Confirmed Type insulin asp prt-insulin aspart 1 sliding scale dose SUBCUT UD 11/28/17 12/15/17 History [Novolog Mix 70-30 U-100 Insuln] insulin detemir U-100 [Levemir 15 unit SUBCUT QPM 11/28/17 12/15/17 History U-100 Insulin] Exam Vital signs: Vital Signs 01/12/18 16:00 01/12/18 16:23 01/12/18 16:24 Temperature 99.8 F H Pulse Rate 114 H 88 Respiratory Rate 20 18 Blood Pressure 114/56 L Pulse Oximetry 94 L 98 01/12/18 19:17 01/12/18 20:00 01/13/18 00:00 Temperature 100.6 F H 100.5 F H Pulse Rate 91 H 113 H 103 H Respiratory Rate 16 20 20 Blood Pressure 119/57 L 136/59 L Pulse Oximetry 95 97 01/13/18 03:16 01/13/18 05:06 01/13/18 07:51 Temperature 100.5 F H Pulse Rate 87 119 H Respiratory Rate 34 H 20 Blood Pressure 128/60 Pulse Oximetry 97 96 01/13/18 08:39 01/13/18 08:42 01/13/18 12:00 Temperature 98.9 F Pulse Rate 108 H 71 Respiratory Rate 18 18 Blood Pressure 130/69 Pulse Oximetry 99 97 Intake & Output 01/12/18 01/13/18 01/13/18 18:59 06:59 18:59 Intake Total 1585 / 1585 1132 / 1132 1000 / 1000 Output Total 1660 / 1660 200 / 200 600 / 600 Balance -75 / -75 932 / 932 400 / 400 Weight 61.3 kg Intake: IV 800 / 800 100 / 100 1000 / 1000 D5W Inj 500 ML @ 75 mls/hr IV. 500 / 500 CONT .Q6H40M [facility] Rx#:[id number] 1/2 Normal Saline Inj 1,000 ML 1000 / 1000 @ 100 mls/hr IV.CONT .Q10H [facility] Rx#:[id number] Flexbumin 25% Inj 100 ML @ 60 100 / 100 100 / 100 mls/hr IV.SIG Q12H [facility] Rx#: [id number] Diflucan 200 mg Premix Bag 100 200 / 200 ML @ 100 mls/hr IV.SIG Q24H [facility] Rx#:[id number] Oral 0 / 0 0 / 0 Tube Feeding 285 / 285 582 / 582 Water Bolus Amount 450 / 450 Anesthesia Amount 500 / 500 Output: Stool 1200 / 1200 Estimated Blood Loss 10 / 10 Urine Amount (Catheter) 200 / 200 600 / 600 1 200 / 200 Indwelling Urethral Catheter 600 / 600 Wound Vac Amount 250 / 250 200 / 200 Posterior Sacrum 250 / 250 200 / 200 Other: Mode Setting Left Foot Continuous Posterior Sacrum Continuous Continuous Narrative: GENERAL: Sick appearing patient who looks older than her age SKIN: Warm and dry. HEAD: Normocephalic. EYES: No scleral icterus. No injection or drainage. NECK: Supple, tracheostomy CARDIOVASCULAR: Regular rate and rhythm without murmurs, gallops, or rubs. RESPIRATORY: Breath sounds diminished at bases. GASTROINTESTINAL: Abdomen soft, non-tender, nondistended. EXTREMITIES: Above-knee amputation on the right, pelvic drain in place NEUROLOGICAL: Comatose Results - Lab Results 01/13/18 07:02 01/13/18 07:02 Most recent lab results ABG pH 7.41 (7.380-7.420) 12/25/17 05:30 ABG pCO2 31 mmHg (38-42) L 12/25/17 05:30 ABG pO2 381 mmHg (61-120) H 12/25/17 05:30 ABG HCO3 19 mmol/L (22-26) L 12/25/17 05:30 Calcium 9.1 mg/dL (8.5-10.1) 01/13/18 07:02 Phosphorus 0.7 mg/dL (2.5-4.9) L 01/09/18 07:21 Magnesium 2.6 mg/dL (1.5-2.5) H 01/09/18 07:21 Assessment and Plan - Assessment (1) MARIO (acute kidney injury) Code(s): N17.9 - Acute kidney failure, unspecified Status: Acute (2) Hypernatremia Code(s): E87.0 - Hyperosmolality and hypernatremia Status: Acute (3) Type 2 diabetes mellitus with hyperosmolar nonketotic hyperglycemia Code(s): E11.01 - Type 2 diabetes mellitus with hyperosmolarity with coma Status: Acute (4) Necrotizing fasciitis of pelvic region and thigh Code(s): M72.6 - Necrotizing fasciitis Status: Acute - Plan Patient needs hydration I will continue to increase albumin to every 6 hourly and increase water replacement to 200 cc every 4 hourly continue to monitor intake and output monitor electrolytes Check urine sodium and osmolality Follow BMP Creatinine is declining a avoid nephrotoxic agents if possible Patient has necrotizing fasciitis status post surgical debridement Continue with antibiotics Diflucan and Flagyl
[2018-01-13] MEDS: Acetaminophen 325 MG Tablet PO PRN (17:10)
--- NOTE | 2018-01-13 18:18 | P.PNIM ---
Subjective Interval history: 52-year-old f admitted with severe sepsis and septic shock from necrotizing fasciitis of the buttocks and left thigh, s/p multiple debridements and tracheostomy for respiratory failure, transferred from icu , failed swallow eval and continues on tube feeds via dobhoff, rectal management system in place for diarrhea, she has been spiking temps since yesterday pt seen and examined, patient is awake , mouths some response and follows some commands but remains very weak, no complaints, still some fever Physical Exam Vital signs: Last Vital Signs Temp 100.8 F H 01/13/18 16:00 Pulse 118 H 01/13/18 16:08 Resp 22 01/13/18 16:08 BP 113/59 L 01/13/18 16:00 Pulse Ox 94 L 01/13/18 16:08 Intake & Output 01/11/18 01/12/18 01/13/18 01/14/18 06:59 06:59 06:59 06:59 Intake Total 400 / 400 1000 / 1000 2717 / 2717 1000 / 1000 Output Total 575 / 575 1600 / 1600 1860 / 1860 600 / 600 Balance -175 / -175 -600 / -600 857 / 857 400 / 400 Weight 60.3 kg 62 kg 61.3 kg chronically ill and debilitated, very weak frail 52yo f opens eyes min responsive some motion to follow commands but too weak heart s1s2 reg lungs clear decreased bs bl abd soft nondt pos bs ext gangrenous 2-4 toes left foot, right bka, wound vac in place in place left buttocks and thigh Urinary Catheter Management Indwelling Urethral Catheter: Cath placed during this visit: yes Insertion date: 01/13/18 Insertion time: 01:00 1: Cath placed during this visit: yes, but has since been removed by the nurse Urethral indwelling: Yes Insertion date: 12/15/17 Removal date: 01/13/18 Removal time: 01:00 Results Labs CBC & Chem 7: 01/13/18 07:02 01/13/18 07:02 Procedures Procedures: - Preoperative Diagnosis (1) Necrotizing fasciitis of pelvic region and thigh - Postoperative Diagnosis (1) Necrotizing fasciitis of pelvic region and thigh Procedure: i and d with vac change, partial closure Anesthesia: GETA Surgeon: Ventura Bazzi MD Pathology: none sent Operation and Findings: bleeding granulation, scant fibropurulence Assessment and Plan (1) MARIO (acute kidney injury): Code(s): N17.9 - Acute kidney failure, unspecified Status: Acute (2) Hypernatremia: Code(s): E87.0 - Hyperosmolality and hypernatremia Status: Acute (3) Type 2 diabetes mellitus with hyperosmolar nonketotic hyperglycemia: Code(s): E11.01 - Type 2 diabetes mellitus with hyperosmolarity with coma Status: Acute (4) Necrotizing fasciitis of pelvic region and thigh: Code(s): M72.6 - Necrotizing fasciitis Status: Acute Takeback for surgery on Sunday Plan -ACUTE METABOLIC ENCEPHALOPATHY improving, sluggish mentation, increase oob, activity as tolerated. -SEVERE SEPTIC SHOCK - Improved, -ACUTE HYPOXIC /HYPERCARBIC RESPIRATORY FAILURE - improved status post Tracheostomy place 12/28/17 stable on trach colar -MYOCARDIAL DYSFUNCTION secondary to septic shock/Fluid Overload s/p aggressive diuresis - improved, stable, cont metoprolol -ACUTE NECROTIZING FASCITITIS of buttocks and left thigh s/p multiple debridements/wound vac, continue abx daptomycin,zosyn and diflucan per ID, cont wound care per sx -DMII/brittle DM uncontrolled - cont insulin sliding scale and titrate levemir , enteral nutrition per dobhoff as tolerated, if continues to require npo will need to address peg? -ACUTE DVT LEFT UEXT - - DVT left internal jugular, subclavian, axillary and distal arm veins. - Cannot anticoagulate secondary to acute blood loss anemia requiring blood transfusion, frequent surgeries, high bleeding risk -SEVERE PROTEIN CALORIE MALNUTRITION prealbumin 5 on 12/18 Daily BMP and Magnesium and Phosphorus, Glucerna 1.5 at 50 ml per hour Dietitian following -ANEMIA of acute blood loss and chronic dz - mvi, transfuse prn,hh sable, -HYPERNATREMIA - increase free water per dht, add D5w iv for hydration , still w elevated na, will consult nephrology -MARIO w prerenal azotemia and hyperchloridemia, will add bolus of hypotonic fluid x 1 today. -GANGRENE w ulceration Left foot - wound care per podiatry recommendations and follow up with podiatry, this may be causing her fevers, will need podiatry to reeval along w ID -DYSPHAGIA - cont dht feeds as tolerated, will need to address peg tube w family if patient will require placement which is likely. -MUSCLE WEAKNESS /critical care myopathy - cont pt/ot, will require rehab/ placement -Prophylaxis - Pepcid for GI ulcer prophylaxis - SCDs for DVT prophylaxis - Hold chemical DVT prophylaxis until ongoing surgical decisions regarding further debridement are made Progress Note: Quality VTE Deep Vein Thrombosis/Pulmonary Embolism Present on Admission: No
[2018-01-13 20:13] LABS: Creatinine,Urine Random 49 mg/dL (27-300); Sodium,Urine Random 8 meq/L
--- NOTE | 2018-01-13 22:05 | P.PN ---
Subjective Interval history: NOt seen Physical Exam Vital signs: Vital Signs 01/13/18 00:00 01/13/18 03:16 01/13/18 05:06 Temperature 100.5 F H Pulse Rate 103 H 87 Respiratory Rate 20 34 H Blood Pressure 136/59 L Pulse Oximetry 97 97 01/13/18 07:51 01/13/18 08:39 01/13/18 08:42 Temperature 100.5 F H Pulse Rate 119 H 108 H Respiratory Rate 20 18 Blood Pressure 128/60 Pulse Oximetry 96 99 01/13/18 12:00 01/13/18 16:00 01/13/18 16:08 Temperature 98.9 F 100.8 F H Pulse Rate 71 118 H 118 H Respiratory Rate 18 22 22 Blood Pressure 130/69 113/59 L Pulse Oximetry 97 94 L 94 L 01/13/18 19:57 01/13/18 20:00 Temperature 98.7 F Pulse Rate 116 H 109 H Respiratory Rate 20 20 Blood Pressure 115/58 L Pulse Oximetry 100 Intake & Output 01/13/18 01/13/18 01/14/18 06:59 18:59 06:59 Intake Total 1132 / 1132 1700 / 1700 300 / 300 Output Total 200 / 200 1500 / 1500 Balance 932 / 932 200 / 200 300 / 300 Weight 61.3 kg Intake: IV 100 / 100 1100 / 1100 300 / 300 1/2 Normal Saline Inj 1,000 ML 1000 / 1000 @ 100 mls/hr IV.CONT .Q10H [facility] Rx#:[id number] Flexbumin 25% Inj 100 ML @ 60 100 / 100 100 / 100 100 / 100 mls/hr IV.SIG Q12H [facility] Rx#: [id number] Diflucan 200 mg Premix Bag 100 200 / 200 ML @ 100 mls/hr IV.SIG Q24H [facility] Rx#:[id number] Oral 0 / 0 Tube Feeding 582 / 582 600 / 600 Water Bolus Amount 450 / 450 Output: Urine 350 / 350 Stool 50 / 50 Urine Amount (Catheter) 950 / 950 Indwelling Urethral Catheter 950 / 950 Wound Vac Amount 200 / 200 150 / 150 Posterior Sacrum 200 / 200 150 / 150 Other: Mode Setting Posterior Sacrum Continuous Continuous Narrative: chronically ill and debilitated, very weak frail 52yo f opens eyes min responsive some motion to follow commands but too weak heart s1s2 reg lungs clear decreased bs bl abd soft nondt pos bs ext gangrenous 2-4 toes left foot, right bka, wound vac in place in place left buttocks and thigh - Urinary Catheter Management Indwelling Urethral Catheter Cath placed during this visit: yes Reason for continuing: Severe pressure ulcer/wound Insertion date: 01/13/18 Insertion time: 01:00 1 Cath placed during this visit: yes, but has since been removed by the nurse Urethral indwelling: Yes Reason for continuing: Severe pressure ulcer/wound Insertion date: 12/15/17 Removal date: 01/13/18 Removal time: 01:00 Results - Labs CBC & Chem 7: 01/13/18 07:02 01/13/18 07:02 Laboratory Results - last 24 hr 01/12/18 01/13/18 01/13/18 23:49 04:07 07:02 WBC 12.5 H RBC 2.42 L Hgb 7.6 L Hct 23.2 L MCV 95.7 MCH 31.2 MCHC 32.6 RDW 19.1 H Plt Count 232 MPV 11.0 Neut % (Auto) 71.6 H Lymph % (Auto) 21.2 Mckenzie % (Auto) 5.1 Eos % (Auto) 1.5 Baso % (Auto) 0.6 Neut # (Auto) 8.9 H Lymph # (Auto) 2.6 Mckenzie # (Auto) 0.6 Eos # (Auto) 0.2 Baso # (Auto) 0.1 WBC Differential . Differential Comment Auto diff final Sodium Potassium Chloride Carbon Dioxide Anion Gap BUN Creatinine Estimated GFR POC Glucose 300 H 279 H Random Glucose Calcium Urine Osmolality Ur Random Creatinine Ur Random Sodium 01/13/18 01/13/18 01/13/18 07:02 07:54 12:50 WBC RBC Hgb Hct MCV MCH MCHC RDW Plt Count MPV Neut % (Auto) Lymph % (Auto) Mckenzie % (Auto) Eos % (Auto) Baso % (Auto) Neut # (Auto) Lymph # (Auto) Mckenzie # (Auto) Eos # (Auto) Baso # (Auto) WBC Differential Differential Comment Sodium 153 H Potassium 4.8 Chloride 119 H Carbon Dioxide 27.7 Anion Gap 6 BUN 71 H Creatinine 1.32 H Estimated GFR 42 L POC Glucose 285 H 222 H Random Glucose 266 H Calcium 9.1 Urine Osmolality Ur Random Creatinine Ur Random Sodium 01/13/18 01/13/18 01/13/18 16:40 19:00 19:00 WBC RBC Hgb Hct MCV MCH MCHC RDW Plt Count MPV Neut % (Auto) Lymph % (Auto) Mckenzie % (Auto) Eos % (Auto) Baso % (Auto) Neut # (Auto) Lymph # (Auto) Mckenzie # (Auto) Eos # (Auto) Baso # (Auto) WBC Differential Differential Comment Sodium Potassium Chloride Carbon Dioxide Anion Gap BUN Creatinine Estimated GFR POC Glucose 201 H Random Glucose Calcium Urine Osmolality 451 Ur Random Creatinine 49 Ur Random Sodium 8 01/13/18 19:39 WBC RBC Hgb Hct MCV MCH MCHC RDW Plt Count MPV Neut % (Auto) Lymph % (Auto) Mckenzie % (Auto) Eos % (Auto) Baso % (Auto) Neut # (Auto) Lymph # (Auto) Mckenzie # (Auto) Eos # (Auto) Baso # (Auto) WBC Differential Differential Comment Sodium Potassium Chloride Carbon Dioxide Anion Gap BUN Creatinine Estimated GFR POC Glucose 163 H Random Glucose Calcium Urine Osmolality Ur Random Creatinine Ur Random Sodium - Imaging ITS Impressions Femur X-Ray 12/15/17 07:05 CONCLUSION: No fracture is identified. There is extensive soft tissue air in the right gluteal region and extending into the proximal and mid posterior thigh. The soft tissue air suggests an open wound. Pelvis X-Ray 12/15/17 07:05 CONCLUSION: No fracture is identified. However, there is extensive soft tissue air in the left gluteal region and left proximal thigh. Pelvis CT 12/15/17 07:52 CONCLUSION: 1. No fracture is identified. 2. Extensive subcutaneous and soft tissue gas bilaterally, left greater than right. It is most severe in the left gluteal region and extends into the proximal posterior thigh. The soft tissue air dissects through the gluteal musculature. There is adjacent subcutaneous edema. Foot X-Ray 12/18/17 00:00 CONCLUSION: Remote small avulsion fracture at the fifth toe. No acute bony abnormality. Venous Doppler Study 12/22/17 00:00 CONCLUSION: Extensive deep vein thrombosis of the left upper extremity. Chest X-Ray 12/31/17 06:00 CONCLUSION: 1. Tracheostomy tube is now seen. Endotracheal tube is no longer seen. 2. Bilateral pulmonary opacity is again seen with interval increase in the right lower lung zone opacity. No change in the left. Abdomen X-Ray 01/08/18 00:08 CONCLUSION: Feeding tube tip is in the region of the distal stomach - Procedures i and d with vac change, partial closure 2/2 necrotizing fasciitis of pelvic region and thigh Assessment and Plan - Assessment (1) MARIO (acute kidney injury) Code(s): N17.9 - Acute kidney failure, unspecified Status: Acute (2) Hypernatremia Code(s): E87.0 - Hyperosmolality and hypernatremia Status: Acute (3) Type 2 diabetes mellitus with hyperosmolar nonketotic hyperglycemia Code(s): E11.01 - Type 2 diabetes mellitus with hyperosmolarity with coma Status: Acute (4) Necrotizing fasciitis of pelvic region and thigh Code(s): M72.6 - Necrotizing fasciitis Status: Acute Plan: Takeback for surgery on Sunday - Plan -ACUTE METABOLIC ENCEPHALOPATHY improving, sluggish mentation, increase oob, activity as tolerated. -SEVERE SEPTIC SHOCK - Improved, -ACUTE HYPOXIC /HYPERCARBIC RESPIRATORY FAILURE - improved status post Tracheostomy place 12/28/17 stable on trach colar -MYOCARDIAL DYSFUNCTION secondary to septic shock/Fluid Overload s/p aggressive diuresis - improved, stable, cont metoprolol -ACUTE NECROTIZING FASCITITIS of buttocks and left thigh s/p multiple debridements/wound vac, continue abx daptomycin,zosyn and diflucan per ID, cont wound care per sx -DMII/brittle DM uncontrolled - cont insulin sliding scale and titrate levemir , enteral nutrition per dobhoff as tolerated, if continues to require npo will need to address peg? -ACUTE DVT LEFT UEXT - - DVT left internal jugular, subclavian, axillary and distal arm veins. - Cannot anticoagulate secondary to acute blood loss anemia requiring blood transfusion, frequent surgeries, high bleeding risk -SEVERE PROTEIN CALORIE MALNUTRITION prealbumin 5 on 12/18 Daily BMP and Magnesium and Phosphorus, Glucerna 1.5 at 50 ml per hour Dietitian following -ANEMIA of acute blood loss and chronic dz - mvi, transfuse prn,hh sable, -HYPERNATREMIA - increase free water per dht, add D5w iv for hydration , still w elevated na, will consult nephrology -MARIO w prerenal azotemia and hyperchloridemia, will add bolus of hypotonic fluid x 1 01/13. Increase albumin to every 6 hourly and increase water replacement to 200 cc every 4 hourly continue to monitor intake and output monitor electrolytes. Check urine sodium and osmolality. Follow BMP. Creatinine is declining avoid nephrotoxic agents if possible -GANGRENE w ulceration Left foot - wound care per podiatry recommendations and follow up with podiatry, this may be causing her fevers, will need podiatry to reeval along w ID -DYSPHAGIA - cont dht feeds as tolerated, will need to address peg tube w family if patient will require placement which is likely. -MUSCLE WEAKNESS /critical care myopathy - cont pt/ot, will require rehab/ placement -Prophylaxis - Pepcid for GI ulcer prophylaxis - SCDs for DVT prophylaxis - Hold chemical DVT prophylaxis until ongoing surgical decisions regarding further debridement are made
[2018-01-14] MEDS: Oral Hygiene Kit OROPHARYNG SCH ×4 (00:06→18:09)
[2018-01-14] MEDS: Insulin NovoLIN Regular Correctional Sugar Inj SQ SCH ×6 (00:06→22:14)
[2018-01-14] MEDS: Albumin Human 25% Inj 100 ML IV.SIG SCH ×4 (04:29→22:16)
[2018-01-14] MEDS: metroNIDAZOLE 500 MG Tablet PO SCH (05:43)
[2018-01-14 07:42] LABS: Baso # (Auto) 0.1 th/mm3 (0.0-0.2); Baso % (Auto) 0.6 % (0.0-2.0); Eos # (Auto) 0.1 th/mm3 (0.0-0.4); Eos % (Auto) 1.1 % (0.0-4.0); Hematocrit 22.1 % (35.0-46.0); Hemoglobin 7.1 gm/dL (11.6-15.3); Lymph # (Auto) 2.6 th/mm3 (1.0-4.8); Lymph % (Auto) 19.5 % (9.0-44.0); Mean Corpuscular HGB Conc 32.1 % (32.0-36.0); Mean Corpuscular Hemoglobin 30.7 pg (27.0-34.0); Mean Corpuscular Volume 95.7 fL (80.0-100.0); Mean Platelet Volume 11.2 fL (7.0-11.0); Mono # (Auto) 0.8 th/mm3 (0.0-0.9); Mono % (Auto) 5.8 % (0.0-8.0); Neut # (Auto) 9.7 th/mm3 (1.8-7.7); Platelet Count 214 th/mm3 (150-450); Red Blood Count 2.31 mil/mm3 (4.00-5.30); Red Cell Distribution Width 19.6 % (11.6-17.2); White Blood Count 13.3 th/mm3 (4.0-11.0)
[2018-01-14 08:19] LABS: Albumin 5.2 g/dL (3.4-5.0); Calcium 9.4 mg/dL (8.5-10.1); Carbon Dioxide 28.6 meq/L (21.0-32.0); Phosphorus 0.1 mg/dL (2.5-4.9); Potassium 4.7 meq/L (3.5-5.1)
[2018-01-14] MEDS: Acetaminophen 325 MG Tablet PO PRN (08:49)
[2018-01-14] MEDS: Insulin Detemir Inj 1,000 UNIT/10 ML Vial SQ SCH ×2 (08:50→22:46)
[2018-01-14 08:59] LABS: ABG Base Excess 6.7 mmol/L (-2-2); ABG PCO2 37 mmHg (38-42); ABG PO2 82 mmHg (61-120)
[2018-01-14] MEDS ORDERED: Potassium Phosphate 500 MG Soluble Tablet PO SCH (09:00)
--- NOTE | 2018-01-14 09:31 | P.PNADD ---
Addendum to Inpatient Note Reason for Addendum: Additional Documentation Additional information: Dk called 2/ T 102 tachypnea RR 30 and hypoxia on 80% FiO2 pt has trach collar. Was 90% On 28% FiO2. Stat transfer to [facility] and panculture dw Dr Vazquez CCM
[2018-01-14] MEDS ORDERED: Potassium Phosphate Inj 30 MMOL in Sodium Chlor 0.9% Inj 250 ML IV.SIG ONE (10:00)
[2018-01-14] MEDS: Chlorhexidine 0.12% Oral Kit 15 ML UDC OROPHARYNG SCH ×2 (10:05→22:15)
--- NOTE | 2018-01-14 10:17 | XR ---
EXAM DATE: 01/14/2018 10:13 AM EST AGE/SEX: 52 years / Female INDICATIONS: Fever. CLINICAL DATA: This is the patient's initial encounter. Patient reports that signs and symptoms have been present for 1 week and indicates a pain score of Nonresponsive. MEDICAL/SURGICAL HISTORY: Hypertension. Diabetes mellitus type II. Hepatitis C. GERD, sepsis . section COMPARISON: [facility], CHEST 1V SINGLE AP, 12/31/2017. . FINDINGS: Stable tracheostomy. Interval removal of right subclavian central line. Interval removal of NGT with placement of feeding type nasoenteric catheter which is coursing beyond the proximal stomach with tip omitted from the image. Improved aeration of the lower lung zones with persistent mild patchy bilate ral lower lobe airspace disease and likely trace left pleural effusion. Cardiomediastinal contours ar e stable. Remainder of the exam is unchanged. CONCLUSION: 1. Tubes and lines, as above. 2. Slight improved aeration of the lower lung zones with persistent mild patchy airspace disease and probable trace left pleural effusion. Electronically signed by: Jefferson Sapp MD 01/14/2018 10:15 AM EST
[2018-01-14] MEDS: Sodium Chloride 0.45 % Inj 1,000 ML IV.CONT SCH ×2 (10:24→21:22)
[2018-01-14] MEDS: Collagenase Oint 30 GM Tube TOPICAL SCH (10:25)
--- NOTE | 2018-01-14 10:51 | P.PNCC ---
Subjective Subjective Remarks/Hospital Course: Note for 01/05/18: This 52-year-old woman with long-standing uncontrolled diabetes mellitus and severe peripheral arterial disease related to a long-term heavy smoking history was found down at her home and initial blood glucose was 610. Her lower back and buttocks was exquisitely tender and a mid line stage IV sacral decubitus was oozing purulent material and inflamed and the surrounding soft tissue. White count was not elevated but 90% neutrophils. Temperature 97 degrees. Moderately encephalopathic though conversant. X-rays revealed no fractures in the pelvis but CAT scan demonstrated extensive subcutaneous air emanating in both directions left and right from the mid sacral region. This is clearly necrotizing fasciitis or some other gas-forming infection and the woman is critically ill. She received vancomycin, Zosyn, and clindamycin antibiotic therapy as quickly as possible and was transferred to the ICU for ongoing resuscitation. Because of worsening hemodynamic stability she required intubation and mechanical ventilation followed by central line placement on arrival to the ICU. Insulin drip infusion was started in the emergency department and glucose had declined into the low 400s. She was not in ketoacidosis but lactic acid was elevated at 3.1. General surgery and orthopedic surgery were consulted for recommendations and it was felt that this woman was too unstable to tolerate an operative procedure immediately. We continue her ongoing resuscitation and trial in the ICU at this stage. 12/16: Following aggressive resuscitation yesterday for the treatment of severe hyperglycemia, septic shock, respiratory failure, metabolic acidosis, acute kidney injury, the patient went to the operating room with an extensive wide debridement bilateral gluteal and left thigh soft tissue and muscle. Primary antibiotic coverage at this point is vancomycin, cefepime, clindamycin. The patient started to make urine late yesterday afternoon and has continued to acceptable output since. Lactic acidosis is 2.0 this morning but metabolic acidosis persists despite bicarb drip. She remains on vasopressor support and hemodynamically unstable. 12/17: s/p debridement of large nec fasc wound. remains in shock today. also very hypoglycemic requiring multiple D50 amps overnight. 12/18: back in worsening shock. vasopressor support higher. required 2L crystalloid overnight and additional 1L and 500cc albumin today. ivc completely flat on bedside echo. LVEF hyperdynamic. no pericardial effusion. spoken with gen surg. plan to go back early to eval for worsening necrosis. fio2 also up to 100% and peep 10- hypoxic, likely early ARDS. 12/19: clinically doing better. still in shock on vasopressors, but requirements are lower and lactate cleared. Cr slowly uptrending. SVV still 19% today and appears to be volume responsive. gen surgery ordered 2 units prbc for falling hgb in the setting of blood loss with surgical intervention yesterday. fio2 improving. glycemic control also improving. 12/20: Markedly impaired oxygenation persists. Still requiring elevated end expiratory pressure. Nutritional support continues but she remains catabolic. It will be difficult to keep up with her nutritional needs. 12/21: Continued severe sepsis requiring vasopressor support and mechanical ventilation. Oxygenation remains impaired and smoldering metabolic acidosis persists. Despite hemodynamic instability the patient's only hope for survival is with infection source control through further debridement. Clearly a greatly increased risk however for any procedure. 12/22: Persistent septic shock course requiring vasopressor support and regular debridement. Good antibiotic coverage but she continues to require adjustment of ventilator, hemodynamic support drugs, antibiotics, intravenous fluids. Her nutritional status was quite depleted on arrival and continues to deteriorate despite adjuvant nutrition. 12/23: Patient continues septic course. She has developed venous clot throughout her left internal jugular subclavian and axillary vein system. Not a candidate for full anticoagulation because of need for frequent surgical debridement. We will pull out the catheter today and placing In the right subclavian route. 12/24 remains critically ill and septic remains on Rj-Synephrine at 50 mcg/kg/ min. WBC count increasing 20 6K today. Antibiotics have been changed by ID. Diflucan added for Talia UTI. Plan for OR today per surgery 12/25: Went to OR yesterday, s/p Incision, drainage with excisional debridement of back, buttock, thigh, and VAC change. Main septic White count increasing 31, 000 today, remains on pressors vasopressin and Rj-Synephrine. 12/26: Remains critical remains on vasopressin to maintain blood pressure and map above 65, currently off Rj-Synephrine. Remains severely fluid overloaded approximately 20 kg up. Despite pressor use will start IV diuretics to achieve negative fluid balance 12/27: Intubated sedated but more awake follows some commands. Hemoglobin down to 6.4, 2 g dropped, receiving 2 units of PRBC. No obvious bleeding noted. Currently had been weaned off the pressors. Or planned for tomorrow again 12/28: OR today for wound VAC change and I&D, possible tracheostomy. Potassium is 2.6 getting replaced. Hemoglobin stable. Remains off pressors. Urine output almost 8 L with forced diuresis 12/29: Status post OR for wound VAC change in tracheostomy yesterday. Getting for his diuresis urine output more than 4 L in 24 hours. Remains intubated sedated intermittently follows commands. Plan for I&D wound VAC change again on Saturday 12/30: Remains intubated sedated more stable. Urine output remains excellent with diuresis. Plan for OR in a.m. for further I&D and VAC change 12/31: Patient remains intubated plan for OR today with Dr. Muir for further I&D and wound VAC change. Making urine more than 4 L in 24 hours with diuresis. Getting closer to admission weight. Potassium 3.3 getting replacement 01/01: Remains intubated sedated failing CPAP due to low tidal volumes. Status post OR yesterday for the I&D tomorrow planned by general surgery. Urine output 3 L in 24 hours 01/02: Potassium being replaced. Ready for OR today. Return from the OR with stable hemodynamics on mechanical ventilation. 01/03: Attempted spontaneous breathing trials today and converted to T piece. We will continue this method of weaning. Nutrition infusing and well- tolerated. Severity of wound will require a lengthy hospitalization. 01/04: Nasogastric tube is out. She is much more alert and we will try a swallow evaluation before replacing. Contraction alkalosis is developing with diuretics, will add a carbonic anhydrase inhibitor. 01/05: Breathing comfortably on T-piece. Failed swallow eval. Will need to replace nasogastric tube or Dobbhoff for nutrition. 01/06: Alert interactive. Failed swallow eval possibly due to the distortion of the trach cuff. Continue feeding through Dobbhoff tube. Patient is stable to go to floor now. Fentanyl drip converted to fentanyl patch. Adequately diuresed of post edema, discontinue diuretics and replace potassium. After K replaced add lisinopril now that GFR back to normal. 01/07 - 01/13: Patient undergoing care on floor with continuous tube feeding and serial surgical debridements. Wound VAC in place. 01/14: Patient developed temperature of 103 with sustained tachycardia and obtundation. She clearly appears septic. Cultures have been ordered by the floor staff and resuscitation with isotonic crystalloid has begun in the ICU. Her abdomen is soft and her chest x-ray is clear. She has no indwelling lines. The likely culprit is the depths of the wound and/or stool contamination. Objective Vital Signs / I&O: Vital Signs 01/13/18 12:00 01/13/18 16:00 01/13/18 16:08 Temperature 98.9 F 100.8 F H Pulse Rate 71 118 H 118 H Respiratory Rate 18 22 22 Blood Pressure 130/69 113/59 L Pulse Oximetry 97 94 L 94 L 01/13/18 19:57 01/13/18 20:00 01/14/18 00:00 Temperature 98.7 F 102.2 F H Pulse Rate 116 H 109 H 113 H Respiratory Rate 20 20 20 Blood Pressure 115/58 L 122/67 Pulse Oximetry 100 94 L 01/14/18 00:51 01/14/18 04:38 01/14/18 08:00 Temperature 102.5 F H Pulse Rate 90 124 H Respiratory Rate 42 H 36 H 50 H Blood Pressure 125/68 Pulse Oximetry 97 92 L 01/14/18 08:27 01/14/18 09:36 Temperature Pulse Rate 124 H Respiratory Rate 46 H Blood Pressure Pulse Oximetry 93 L 97 Intake & Output 01/13/18 01/14/18 01/14/18 18:59 06:59 18:59 Intake Total 1700 / 1700 500 / 500 1060 / 1060 Output Total 1500 / 1500 750 / 750 150 / 150 Balance 200 / 200 -250 / -250 910 / 910 Weight 61.2 kg Intake: IV 1100 / 1100 500 / 500 1/2 Normal Saline Inj 1,000 ML 1000 / 1000 @ 100 mls/hr IV.CONT .Q10H [facility] Rx#:[id number] Flexbumin 25% Inj 100 ML @ 60 100 / 100 300 / 300 mls/hr IV.SIG Q6H [facility] Rx#: [id number] Diflucan 200 mg Premix Bag 100 200 / 200 ML @ 100 mls/hr IV.SIG Q24H [facility] Rx#:[id number] Oral 0 / 0 0 / 0 Tube Feeding 600 / 600 590 / 590 Tube Irrigant 20 / 20 Water Bolus Amount 450 / 450 Output: Urine 350 / 350 Stool 50 / 50 Urine Amount (Catheter) 950 / 950 750 / 750 Indwelling Urethral Catheter 950 / 950 750 / 750 Wound Vac Amount 150 / 150 150 / 150 Posterior Sacrum 150 / 150 150 / 150 Other: Mode Setting Posterior Sacrum Continuous Continuous Continuous Result Diagrams: 01/14/18 07:05 01/14/18 07:05 Objective Remarks: General: Very ill-appearing middle-aged woman, unresponsive, tracheostomy and T- piece Head: Atraumatic, edentulous, mouth clean Neck: Supple, trach site clean, dry. Lungs: Mcrae clear, mild tachypnea, air movement good bilaterally Heart: Tachycardic rate and regular rhythm. Neck veins are flat. Abdomen: Soft, no guarding, no peritoneal irritation. Bowel sounds are few. Benign Back: Wound VAC remains in place over lower lumbar region. Extremities: Warm, well perfused, status post below-knee amputation right side. Skin wrinkled. Neurological: Tracheostomy, withdraws 4 limbs to stimulation. Pupils 2 mm, reactive. Unresponsive. Assessment and Plan - Problem List (1) Septic shock with acute organ dysfunction due to anaerobic bacteria Code(s): A41.4 - Sepsis due to anaerobes; R65.21 - Severe sepsis with septic shock Status: Acute (2) Acute respiratory failure Code(s): J96.00 - Acute respiratory failure, unspecified whether with hypoxia or hypercapnia Status: Acute (3) Necrotizing fasciitis Code(s): M72.6 - Necrotizing fasciitis Status: Acute (4) Type 2 diabetes mellitus with hyperosmolar nonketotic hyperglycemia Code(s): E11.01 - Type 2 diabetes mellitus with hyperosmolarity with coma Status: Acute (5) MARIO (acute kidney injury) Code(s): N17.9 - Acute kidney failure, unspecified Status: Acute (6) Lactic acidosis Code(s): E87.2 - Acidosis Status: Acute - Assessment and Plan Plan: Assessment: 52yF with large necrotizing soft tissue infection of the lower back and sacrum complicated by septic shock and multiorgan dysfunction. Returns to ICU today in florid sepsis, source unclear. Plan: Neurological Acute metabolic encephalopathy Likely from sepsis. Cardiovascular Septic Shock- improving Myocardial dysfunction secondary to septic shock Fluid overload Recurrent, check CBC, lactic acid, creatinine kinase, lipase. Respiratory Acute hypoxic and hypercarbic respiratory failure- persistent - s/p Trach in OR 12/28/17. -T piece for now Endocrinology Diabetes Severe hypoglycemia - Med scale SSI. - Follow potassium and magnesium closely -Exacerbated by sepsis. Hematology/Infectious Disease Septic Shock Necrotizing soft tissue infection - Follow white count and platelet count closely. - Continue daptomycin and Zosyn. Diflucan for fungal coverage. -2 OR for further debridement Sunday by general surgery -We will ask surgery to see. GI Acute protein calorie malnutrition- severe - prealbumin 5 on 12/18. severely malnourished. - daily bmp, mg, phos - Tube feeds infusing, tolerated - Follow prealbumin weekly Acute kidney injury - Tristan required for hourly urine output and to protect perineal region HEME Left upper extremity DVT - DVT left internal jugular, subclavian, axillary and distal arm veins. - Cannot anticoagulate secondary to blood loss anemia requiring blood transfusion, frequent surgeries Prophylaxis - Pepcid for GI ulcer prophylaxis - SCDs for DVT prophylaxis - Hold chemical DVT prophylaxis until ongoing surgical decisions regarding further debridement are made Lines: Place new CVL for resuscitation. Overall impression: This woman was initially critically ill and in septic shock with necrotizing fasciitis emanating from a deep chronic sacral decubitus ulcer. She has required multiple OR trips for I&D and VAC changes. Family request continued aggressive care. She returns to the ICU today in severe sepsis with encephalopathy and unstable hemodynamics. Resuscitation is underway. Source is likely the deep wound over the lumbar region. Critical care 45 minutes aside from procedures.
[2018-01-14] MEDS: Lansoprazole ODT 15 MG Tablet NG/OG SCH (10:56)
[2018-01-14] MEDS: Potassium Bicarbonate 25 MEQ Effervescent Tablet NG/OG SCH ×2 (10:56→21:10)
[2018-01-14 12:12] LABS: Lipase 55 U/L (73-393)
[2018-01-14 12:16] LABS: Creatine Kinase 39 U/L (26-192)
--- NOTE | 2018-01-14 12:26 | P.PNID ---
Subjective Remarks: Patient transferred to [facility] with respiratory distress, fever and altered mental status. Tachypneic with increased respiratory rate and tachycardic. She is currently not responding. Temperature was to 102. On T-piece. This is a 52-year-old white female who was brought to the emergency department after she fell at home. The patient was noted to have profound weakness. She was evaluated in the emergency department and at that time had normal temperature and white blood cell count was also normal. She underwent CT scan of the abdomen and pelvis that showed extensive subcutaneous and soft tissue gas bilaterally with the left greater than right, most severe in the left gluteal region and extending into the proximal posterior thigh soft tissue and air-fluid dissecting through the gluteal musculature. Antibiotics: Diflucan. Allergies/Adverse Reactions: Allergies No Known Allergies Allergy (Verified 12/15/17 07:54) Objective Vital Signs 01/13/18 16:00 01/13/18 16:08 01/13/18 19:57 Temperature 100.8 F H Pulse Rate 118 H 118 H 116 H Respiratory Rate 22 22 20 Blood Pressure 113/59 L Pulse Oximetry 94 L 94 L 01/13/18 20:00 01/14/18 00:00 01/14/18 00:51 Temperature 98.7 F 102.2 F H Pulse Rate 109 H 113 H 90 Respiratory Rate 20 20 42 H Blood Pressure 115/58 L 122/67 Pulse Oximetry 100 94 L 97 01/14/18 04:38 01/14/18 08:00 01/14/18 08:27 Temperature 102.5 F H Pulse Rate 124 H 124 H Respiratory Rate 36 H 50 H 46 H Blood Pressure 125/68 Pulse Oximetry 92 L 93 L 01/14/18 09:36 01/14/18 11:19 Temperature Pulse Rate 117 H Respiratory Rate 41 H Blood Pressure Pulse Oximetry 97 Intake & Output 01/13/18 01/14/18 01/14/18 18:59 06:59 18:59 Intake Total 1700 / 1700 500 / 500 2059 Output Total 1500 / 1500 750 / 750 150 / 150 Balance 200 / 200 -250 / -250 1909 Weight 61.2 kg Intake: IV 1100 / 1100 500 / 500 1000 / 1000 1/2 Normal Saline Inj 1,000 ML 1000 / 1000 0 / 0 @ 70 mls/hr IV.CONT .[id number] [facility] Rx#:[id number] Flexbumin 25% Inj 100 ML @ 60 100 / 100 300 / 300 mls/hr IV.SIG Q6H [facility] Rx#: [id number] Diflucan 200 mg Premix Bag 100 200 / 200 ML @ 100 mls/hr IV.SIG Q24H [facility] Rx#:[id number] LR 1000 mL Inj 1,000 ML @ Wide 1000 / 1000 Open IV.SIG BOLUS ONE Rx#: [id number] Oral 0 / 0 0 / 0 Tube Feeding 600 / 600 590 / 590 Tube Irrigant 20 / 20 Water Bolus Amount 450 / 450 Output: Urine 350 / 350 Stool 50 / 50 Urine Amount (Catheter) 950 / 950 750 / 750 Indwelling Urethral Catheter 950 / 950 750 / 750 Wound Vac Amount 150 / 150 150 / 150 Posterior Sacrum 150 / 150 150 / 150 Other: Mode Setting Posterior Sacrum Continuous Continuous Continuous 01/14/18 10:30 Blood - Peripheral Aerobic Blood Culture - Pending 01/14/18 10:30 Blood - Peripheral Anaerobic Blood Culture - Pending 01/14/18 10:35 Blood - Peripheral Aerobic Blood Culture - Pending 01/14/18 10:35 Blood - Peripheral Anaerobic Blood Culture - Pending 12/24/17 12:20 Tissue - Buttock Fungal Smear - Final Rare budding yeast 12/24/17 12:20 Tissue - Buttock Fungal Culture - Final Talia albicans Talia tropicalis Lab - Hematology Results 01/13/18 01/14/18 07:02 07:05 WBC 12.5 H 13.3 H RBC 2.42 L 2.31 L Hgb 7.6 L 7.1 L Hct 23.2 L 22.1 L MCV 95.7 95.7 MCH 31.2 30.7 MCHC 32.6 32.1 RDW 19.1 H 19.6 H Plt Count 232 214 MPV 11.0 11.2 H Neut % (Auto) 71.6 H 73.0 H Lymph % (Auto) 21.2 19.5 Schleicher % (Auto) 5.1 5.8 Eos % (Auto) 1.5 1.1 Baso % (Auto) 0.6 0.6 Neut # (Auto) 8.9 H 9.7 H Lymph # (Auto) 2.6 2.6 Schleicher # (Auto) 0.6 0.8 Eos # (Auto) 0.2 0.1 Baso # (Auto) 0.1 0.1 WBC Differential . . Differential Comment Auto diff final Auto diff final Lab - Chemistry Results 01/12/18 01/12/18 01/12/18 16:42 19:58 23:49 Sodium Potassium Chloride Carbon Dioxide Anion Gap BUN Creatinine Estimated GFR POC Glucose 315 H 333 H 300 H Random Glucose Lactic Acid Calcium Phosphorus Total Creatine Kinase Albumin Amylase Lipase 01/13/18 01/13/18 01/13/18 04:07 07:02 07:54 Sodium 153 H Potassium 4.8 Chloride 119 H Carbon Dioxide 27.7 Anion Gap 6 BUN 71 H Creatinine 1.32 H Estimated GFR 42 L POC Glucose 279 H 285 H Random Glucose 266 H Lactic Acid Calcium 9.1 Phosphorus Total Creatine Kinase Albumin Amylase Lipase 01/13/18 01/13/18 01/13/18 12:50 16:40 19:39 Sodium Potassium Chloride Carbon Dioxide Anion Gap BUN Creatinine Estimated GFR POC Glucose 222 H 201 H 163 H Random Glucose Lactic Acid Calcium Phosphorus Total Creatine Kinase Albumin Amylase Lipase 01/14/18 01/14/18 01/14/18 00:01 04:28 07:05 Sodium 157 H* Potassium 4.7 Chloride 122 H Carbon Dioxide 28.6 Anion Gap 6 BUN 73 H Creatinine 1.31 H Estimated GFR 42 L POC Glucose 184 H 193 H Random Glucose 186 H Lactic Acid Calcium 9.4 Phosphorus 0.1 L Total Creatine Kinase Albumin 5.2 H Amylase Lipase 01/14/18 01/14/18 01/14/18 07:57 09:20 11:32 Sodium Potassium Chloride Carbon Dioxide Anion Gap BUN Creatinine Estimated GFR POC Glucose 207 H 237 H Random Glucose Lactic Acid 2.3 H Calcium Phosphorus Total Creatine Kinase Albumin Amylase Lipase 01/14/18 01/14/18 01/14/18 11:32 11:32 11:44 Sodium Potassium Chloride Carbon Dioxide Anion Gap BUN Creatinine Estimated GFR POC Glucose 190 H Random Glucose Lactic Acid Calcium Phosphorus Total Creatine Kinase 39 Albumin Amylase 49 Lipase 55 L Imaging: ITS Impressions Femur X-Ray 12/15/17 07:05 CONCLUSION: No fracture is identified. There is extensive soft tissue air in the right gluteal region and extending into the proximal and mid posterior thigh. The soft tissue air suggests an open wound. Pelvis X-Ray 12/15/17 07:05 CONCLUSION: No fracture is identified. However, there is extensive soft tissue air in the left gluteal region and left proximal thigh. Pelvis CT 12/15/17 07:52 CONCLUSION: 1. No fracture is identified. 2. Extensive subcutaneous and soft tissue gas bilaterally, left greater than right. It is most severe in the left gluteal region and extends into the proximal posterior thigh. The soft tissue air dissects through the gluteal musculature. There is adjacent subcutaneous edema. Foot X-Ray 12/18/17 00:00 CONCLUSION: Remote small avulsion fracture at the fifth toe. No acute bony abnormality. Venous Doppler Study 12/22/17 00:00 CONCLUSION: Extensive deep vein thrombosis of the left upper extremity. Abdomen X-Ray 01/08/18 00:08 CONCLUSION: Feeding tube tip is in the region of the distal stomach Chest X-Ray 01/14/18 00:00 CONCLUSION: 1. Tubes and lines, as above. 2. Slight improved aeration of the lower lung zones with persistent mild patchy airspace disease and probable trace left pleural effusion. Physical Exam: PHYSICAL EXAMINATION: GENERAL: Nonresponsive. HEENT: Pale sclera. NECK: Supple. No adenopathy or swelling. LUNGS: Decreased breath sounds with scattered rhonchi. HEART: irregular S1 and S2. 1-2/6 systolic murmur at the left sternal border. ABDOMEN: Bowel sounds present, soft. BACK: Surgical wound post debridement across the lower back, buttock and thigh. Vac in place. EXTREMITIES: No clubbing, no cyanosis or edema. abrasion with dry necrotic changes at left dorsal toes 2-4. SKIN: No diffuse rash. Scattered ecchymotic lesions. NEUROLOGIC: Unable to assess. PSYCHIATRIC: Unable to assess. Assessment and Plan - Plan IMPRESSION: 1. Necrotizing fasciitis of the back, buttock and thigh. Tlaia albicans and Talia tropicalis. 2. Septic shock. Responded to broad-spectrum antibiotics. 3. Acute respiratory failure. 4. Chronic kidney disease. 5. Leukocytosis. Improved. 6. New fever. 7. New episode of sepsis. 8. Probable aspiration. RECOMMENDATIONS: 1. Continue Diflucan. 2. Continue Flagyl p.o. empiric anaerobic coverage. 3. Add vancomycin. 4. Add Zosyn. 5. Follow blood cultures.
[2018-01-14] MEDS ORDERED: Vancomycin Consult Pharmacy 1 EACH OTHER SCH (12:30)
[2018-01-14] MEDS ORDERED: Vancomycin Inj 1,250 MG in Sodium Chlor 0.9% Inj 250 ML IV.SIG ONE (14:00)
[2018-01-14] MEDS: hydrALAZINE 50 MG Tablet NG/OG SCH ×2 (14:28→22:13)
[2018-01-14] MEDS: metroNIDAZOLE 500 MG Tablet NG/OG SCH ×2 (14:32→21:12)
[2018-01-14] MEDS: Piperacil/Tazo 3.375 GM Premix 50 ML IV.SIG SCH ×2 (14:32→21:09)
--- NOTE | 2018-01-14 15:16 | P.PNPAL ---
Reason for Visit Reason for visit: a. To assist with evaluation and management of symptoms including: fever, dyspnea, debility b. To assist medical decision maker(s) with: better understanding of current medical conditions; weighing benefits/burdens of medical treatment options; making medical treatment decisions. Subjective Subjective/Interval History: Asked by nurse to see patient. Nurse indicates patient was transferred to intensive care unit after [facility] was called for probable sepsis. Patient was febrile with temp 103, tachypneic with RR 30-40, hypoxic on FiO2 80% via t- piece. Notes indicate a change in mental status, was previously minimally responsive now unresponsive. Patient seen and examined in ICU. No family at bedside. Spoke with nurse and RT. Patient now on oxygen via t-piece at 35%. Tube feeding on hold. Getting IVF bolus for hypotension, BP 108/55. Tachycardic rate 125. RR 46. Blood cultures drawn, results pending. WBC 13.3, hemoglobin 7.1, platelets 214. Sodium 157, chloride 122, potassium 4.7 , BUN 73, creatinine 1.31, Glucose ranges 186-266 in the past 24 hours. Lactic acid 2.3. Albumin 5.2. Amylase 49, lipase 55. Wound vac remains in place. Chest x-ray slight improved aeration of the lower lung zones with persistent mild patchy airspace disease and probable trace left pleural effusion. Discussed with Dr. Song and Dr. Vazquez notes reviewed. Wounds are likely source of sepsis, possible stool contamination. Patient with overall poor prognosis. Spoke with via phone to provide medical update. Reviewed above findings and concern patient may not survive this hospitalization. He verbalizes understanding. He feels her condition has continued to get worse despite ongoing aggressive care. He hopes the "cultures will find out where the infection is so we can treat it." tells me the nurse called for consent for wound vac change today. Lengthy conversation regarding CODE status given tachypnea, tachycardia and hypotension, he desires FULL CODE understanding even with cardiac resuscitation she may not survive. He is appropriately upset and tells me he will be here tonight to see her and is off tomorrow. Questions answered. Offered support. He is appreciative of the call and requests update 01/15/18. Advance Directives Living Will: Never completed Health Care Surrogate: Never completed Health Care Surrogate Name and Number: HCP Tyrone Middleton Documented care wishes:: No known documented care wishes have been completed Significant change in goals:: FULL CODE. Goals remain aggressive, verbalizes understanding of decline and that she may not survive this hospitalization. Objective Vital Signs: Vital Signs 01/13/18 16:00 01/13/18 16:08 01/13/18 19:57 Temperature 100.8 F H Pulse Rate 118 H 118 H 116 H Respiratory Rate 22 22 20 Blood Pressure 113/59 L Pulse Oximetry 94 L 94 L 01/13/18 20:00 01/14/18 00:00 01/14/18 00:51 Temperature 98.7 F 102.2 F H Pulse Rate 109 H 113 H 90 Respiratory Rate 20 20 42 H Blood Pressure 115/58 L 122/67 Pulse Oximetry 100 94 L 97 01/14/18 04:38 01/14/18 08:00 01/14/18 08:27 Temperature 102.5 F H Pulse Rate 124 H 124 H Respiratory Rate 36 H 50 H 46 H Blood Pressure 125/68 Pulse Oximetry 92 L 93 L 01/14/18 09:36 01/14/18 10:00 01/14/18 10:04 Temperature Pulse Rate 123 H 123 H Respiratory Rate 45 H 43 H Blood Pressure 112/56 L Pulse Oximetry 97 100 100 01/14/18 10:19 01/14/18 10:34 01/14/18 10:49 Temperature Pulse Rate 121 H 122 H 120 H Respiratory Rate 44 H 47 H 48 H Blood Pressure 108/57 L 114/58 L 103/57 L Pulse Oximetry 100 100 100 01/14/18 11:00 01/14/18 11:04 01/14/18 11:19 Temperature Pulse Rate 118 H 118 H 118 H Respiratory Rate 44 H 43 H 42 H Blood Pressure 109/55 L 111/56 L Pulse Oximetry 100 100 100 01/14/18 11:34 01/14/18 11:49 01/14/18 12:00 Temperature 101.9 F H Pulse Rate 121 H 124 H 127 H Respiratory Rate 42 H 41 H 45 H Blood Pressure 109/58 L 115/58 L 113/57 L Pulse Oximetry 100 100 100 01/14/18 12:04 01/14/18 12:19 01/14/18 12:34 Temperature Pulse Rate 126 H 126 H 125 H Respiratory Rate 43 H 41 H 44 H Blood Pressure 112/60 111/59 L 113/58 L Pulse Oximetry 100 100 100 01/14/18 12:49 01/14/18 13:00 01/14/18 13:04 Temperature Pulse Rate 126 H 128 H 127 H Respiratory Rate 43 H 49 H 48 H Blood Pressure 108/55 L 110/56 L Pulse Oximetry 100 100 100 01/14/18 13:19 01/14/18 13:34 01/14/18 13:49 Temperature Pulse Rate 126 H 125 H 124 H Respiratory Rate 48 H 46 H 47 H Blood Pressure 112/57 L 112/58 L 111/57 L Pulse Oximetry 100 100 100 01/14/18 14:00 01/14/18 14:04 Temperature Pulse Rate 123 H 125 H Respiratory Rate 46 H 46 H Blood Pressure 113/57 L Pulse Oximetry 100 100 Intake & Output 01/13/18 01/14/18 01/14/18 18:59 06:59 18:59 Intake Total 1700 / 1700 500 / 500 0 / 2060 Output Total 1500 / 1500 750 / 750 150 / 150 Balance 200 / 200 -250 / -250 1909 / 1909 Weight 61.2 kg Intake: IV 1100 / 1100 500 / 500 1000 / 1000 1/2 Normal Saline Inj 1,000 ML 1000 / 1000 0 / 0 @ 70 mls/hr IV.CONT .[id number] [facility] Rx#:[id number] Flexbumin 25% Inj 100 ML @ 60 100 / 100 300 / 300 mls/hr IV.SIG Q6H [facility] Rx#: [id number] Diflucan 200 mg Premix Bag 100 200 / 200 ML @ 100 mls/hr IV.SIG Q24H [facility] Rx#:[id number] LR 1000 mL Inj 1,000 ML @ Wide 1000 / 1000 Open IV.SIG BOLUS ONE Rx#: [id number] Oral 0 / 0 0 / 0 Tube Feeding 600 / 600 590 / 590 Tube Irrigant 20 / 20 Water Bolus Amount 450 / 450 Output: Urine 350 / 350 Stool 50 / 50 Urine Amount (Catheter) 950 / 950 750 / 750 Indwelling Urethral Catheter 950 / 950 750 / 750 Wound Vac Amount 150 / 150 150 / 150 Posterior Sacrum 150 / 150 150 / 150 Other: Mode Setting Posterior Sacrum Continuous Continuous Continuous Date of Last Bowel Movement 01/14/18 Physical Exam: CONSTITUTIONAL/GENERAL: This is a chronically ill appearing female who looks older than her stated age. TUBES/LINES/DRAINS: Tracheostomy, SCDs, PIV, wound VAC. SKIN: Very pale. Abrasion on left forehead. Scattered ecchymosis to upper extremities. Wound VAC in place over lower lumbar region with blood-tinged drainage -not observed. Skin temperature appropriate. Not diaphoretic. HEAD: Atraumatic. Normocephalic. EYES: Pupils equal and round, reactive. No scleral icterus. No injection or drainage. ENT: Nose without bleeding or purulent drainage. Moist oral mucosa. NECK: Trachea midline. Tracheostomy in place. CARDIOVASCULAR: Regular rate and rhythm. RESPIRATORY/CHEST: O2 via TPA, tracheostomy. Clear breath sounds, diminished. GASTROINTESTINAL: Abdomen soft, non-tender, nondistended. No guarding. Bowel sounds present. GENITOURINARY: Without palpable bladder distension. MUSCULOSKELETAL: Status post right BKA. Left foot cool to touch; several toes with necrotic ulcerations on left foot. NEUROLOGICAL: Awake, intermittently following simple commands. PSYCHIATRIC: Calm. Diagnostic Tests Laboratory: Laboratory Results - last 72 hr 01/11/18 01/11/18 01/12/18 16:33 21:16 02:18 WBC RBC Hgb Hct MCV MCH MCHC RDW Plt Count MPV Neut % (Auto) Lymph % (Auto) Collin % (Auto) Eos % (Auto) Baso % (Auto) Neut # (Auto) Lymph # (Auto) Collin # (Auto) Eos # (Auto) Baso # (Auto) WBC Differential Differential Comment Puncture Site Patient Temperature O2 Saturation ABG pH ABG pCO2 ABG pO2 ABG HCO3 ABG O2 Content ABG Base Excess ABG Methemoglobin Aroldo Test Hemoglobin Carboxyhemoglobin O2 Delivery Device Liter Flow Inspired O2 Critical Value Sodium Potassium Chloride Carbon Dioxide Anion Gap BUN Creatinine Estimated GFR POC Glucose 331 H 370 H 275 H Random Glucose Lactic Acid Calcium Phosphorus Total Creatine Kinase Albumin Amylase Lipase Urine Osmolality Ur Random Creatinine Ur Random Sodium 01/12/18 01/12/18 01/12/18 05:32 06:33 07:43 WBC RBC Hgb Hct MCV MCH MCHC RDW Plt Count MPV Neut % (Auto) Lymph % (Auto) Collin % (Auto) Eos % (Auto) Baso % (Auto) Neut # (Auto) Lymph # (Auto) Collin # (Auto) Eos # (Auto) Baso # (Auto) WBC Differential Differential Comment Puncture Site Patient Temperature O2 Saturation ABG pH ABG pCO2 ABG pO2 ABG HCO3 ABG O2 Content ABG Base Excess ABG Methemoglobin Aroldo Test Hemoglobin Carboxyhemoglobin O2 Delivery Device Liter Flow Inspired O2 Critical Value Sodium 152 H Potassium 5.1 Chloride 120 H Carbon Dioxide 27.5 Anion Gap 5 BUN 74 H Creatinine 1.43 H Estimated GFR 38 L POC Glucose 292 H 220 H Random Glucose 258 H Lactic Acid Calcium 9.5 Phosphorus Total Creatine Kinase Albumin Amylase Lipase Urine Osmolality Ur Random Creatinine Ur Random Sodium 01/12/18 01/12/18 01/12/18 10:04 11:10 16:42 WBC RBC Hgb Hct MCV MCH MCHC RDW Plt Count MPV Neut % (Auto) Lymph % (Auto) Collin % (Auto) Eos % (Auto) Baso % (Auto) Neut # (Auto) Lymph # (Auto) Collin # (Auto) Eos # (Auto) Baso # (Auto) WBC Differential Differential Comment Puncture Site Patient Temperature O2 Saturation ABG pH ABG pCO2 ABG pO2 ABG HCO3 ABG O2 Content ABG Base Excess ABG Methemoglobin Aroldo Test Hemoglobin Carboxyhemoglobin O2 Delivery Device Liter Flow Inspired O2 Critical Value Sodium Potassium Chloride Carbon Dioxide Anion Gap BUN Creatinine Estimated GFR POC Glucose 149 H 139 H 315 H Random Glucose Lactic Acid Calcium Phosphorus Total Creatine Kinase Albumin Amylase Lipase Urine Osmolality Ur Random Creatinine Ur Random Sodium 01/12/18 01/12/18 01/13/18 19:58 23:49 04:07 WBC RBC Hgb Hct MCV MCH MCHC RDW Plt Count MPV Neut % (Auto) Lymph % (Auto) Collin % (Auto) Eos % (Auto) Baso % (Auto) Neut # (Auto) Lymph # (Auto) Collin # (Auto) Eos # (Auto) Baso # (Auto) WBC Differential Differential Comment Puncture Site Patient Temperature O2 Saturation ABG pH ABG pCO2 ABG pO2 ABG HCO3 ABG O2 Content ABG Base Excess ABG Methemoglobin Aroldo Test Hemoglobin Carboxyhemoglobin O2 Delivery Device Liter Flow Inspired O2 Critical Value Sodium Potassium Chloride Carbon Dioxide Anion Gap BUN Creatinine Estimated GFR POC Glucose 333 H 300 H 279 H Random Glucose Lactic Acid Calcium Phosphorus Total Creatine Kinase Albumin Amylase Lipase Urine Osmolality Ur Random Creatinine Ur Random Sodium 01/13/18 01/13/18 01/13/18 07:02 07:02 07:54 WBC 12.5 H RBC 2.42 L Hgb 7.6 L Hct 23.2 L MCV 95.7 MCH 31.2 MCHC 32.6 RDW 19.1 H Plt Count 232 MPV 11.0 Neut % (Auto) 71.6 H Lymph % (Auto) 21.2 Collin % (Auto) 5.1 Eos % (Auto) 1.5 Baso % (Auto) 0.6 Neut # (Auto) 8.9 H Lymph # (Auto) 2.6 Collin # (Auto) 0.6 Eos # (Auto) 0.2 Baso # (Auto) 0.1 WBC Differential . Differential Comment Auto diff final Puncture Site Patient Temperature O2 Saturation ABG pH ABG pCO2 ABG pO2 ABG HCO3 ABG O2 Content ABG Base Excess ABG Methemoglobin Aroldo Test Hemoglobin Carboxyhemoglobin O2 Delivery Device Liter Flow Inspired O2 Critical Value Sodium 153 H Potassium 4.8 Chloride 119 H Carbon Dioxide 27.7 Anion Gap 6 BUN 71 H Creatinine 1.32 H Estimated GFR 42 L POC Glucose 285 H Random Glucose 266 H Lactic Acid Calcium 9.1 Phosphorus Total Creatine Kinase Albumin Amylase Lipase Urine Osmolality Ur Random Creatinine Ur Random Sodium 01/13/18 01/13/18 01/13/18 12:50 16:40 19:00 WBC RBC Hgb Hct MCV MCH MCHC RDW Plt Count MPV Neut % (Auto) Lymph % (Auto) Collin % (Auto) Eos % (Auto) Baso % (Auto) Neut # (Auto) Lymph # (Auto) Collin # (Auto) Eos # (Auto) Baso # (Auto) WBC Differential Differential Comment Puncture Site Patient Temperature O2 Saturation ABG pH ABG pCO2 ABG pO2 ABG HCO3 ABG O2 Content ABG Base Excess ABG Methemoglobin Aroldo Test Hemoglobin Carboxyhemoglobin O2 Delivery Device Liter Flow Inspired O2 Critical Value Sodium Potassium Chloride Carbon Dioxide Anion Gap BUN Creatinine Estimated GFR POC Glucose 222 H 201 H Random Glucose Lactic Acid Calcium Phosphorus Total Creatine Kinase Albumin Amylase Lipase Urine Osmolality Ur Random Creatinine 49 Ur Random Sodium 8 01/13/18 01/13/18 01/14/18 19:00 19:39 00:01 WBC RBC Hgb Hct MCV MCH MCHC RDW Plt Count MPV Neut % (Auto) Lymph % (Auto) Collin % (Auto) Eos % (Auto) Baso % (Auto) Neut # (Auto) Lymph # (Auto) Collin # (Auto) Eos # (Auto) Baso # (Auto) WBC Differential Differential Comment Puncture Site Patient Temperature O2 Saturation ABG pH ABG pCO2 ABG pO2 ABG HCO3 ABG O2 Content ABG Base Excess ABG Methemoglobin Aroldo Test Hemoglobin Carboxyhemoglobin O2 Delivery Device Liter Flow Inspired O2 Critical Value Sodium Potassium Chloride Carbon Dioxide Anion Gap BUN Creatinine Estimated GFR POC Glucose 163 H 184 H Random Glucose Lactic Acid Calcium Phosphorus Total Creatine Kinase Albumin Amylase Lipase Urine Osmolality 451 Ur Random Creatinine Ur Random Sodium 01/14/18 01/14/18 01/14/18 04:28 07:05 07:05 WBC 13.3 H RBC 2.31 L Hgb 7.1 L Hct 22.1 L MCV 95.7 MCH 30.7 MCHC 32.1 RDW 19.6 H Plt Count 214 MPV 11.2 H Neut % (Auto) 73.0 H Lymph % (Auto) 19.5 Collin % (Auto) 5.8 Eos % (Auto) 1.1 Baso % (Auto) 0.6 Neut # (Auto) 9.7 H Lymph # (Auto) 2.6 Collin # (Auto) 0.8 Eos # (Auto) 0.1 Baso # (Auto) 0.1 WBC Differential . Differential Comment Auto diff final Puncture Site Patient Temperature O2 Saturation ABG pH ABG pCO2 ABG pO2 ABG HCO3 ABG O2 Content ABG Base Excess ABG Methemoglobin Aroldo Test Hemoglobin Carboxyhemoglobin O2 Delivery Device Liter Flow Inspired O2 Critical Value Sodium 157 H* Potassium 4.7 Chloride 122 H Carbon Dioxide 28.6 Anion Gap 6 BUN 73 H Creatinine 1.31 H Estimated GFR 42 L POC Glucose 193 H Random Glucose 186 H Lactic Acid Calcium 9.4 Phosphorus 0.1 L Total Creatine Kinase Albumin 5.2 H Amylase Lipase Urine Osmolality Ur Random Creatinine Ur Random Sodium 01/14/18 01/14/18 01/14/18 07:57 08:52 09:20 WBC RBC Hgb Hct MCV MCH MCHC RDW Plt Count MPV Neut % (Auto) Lymph % (Auto) Collin % (Auto) Eos % (Auto) Baso % (Auto) Neut # (Auto) Lymph # (Auto) Collin # (Auto) Eos # (Auto) Baso # (Auto) WBC Differential Differential Comment Puncture Site Right radial Patient Temperature 98.6 O2 Saturation 95 ABG pH 7.52 H* ABG pCO2 37 L ABG pO2 82 ABG HCO3 30 H ABG O2 Content 10.0 L ABG Base Excess 6.7 H ABG Methemoglobin 1.3 Aroldo Test Present Hemoglobin 7.4 L* Carboxyhemoglobin 1.8 O2 Delivery Device Tp Liter Flow 10.00 Inspired O2 80 Critical Value Yes Sodium Potassium Chloride Carbon Dioxide Anion Gap BUN Creatinine Estimated GFR POC Glucose 207 H 237 H Random Glucose Lactic Acid Calcium Phosphorus Total Creatine Kinase Albumin Amylase Lipase Urine Osmolality Ur Random Creatinine Ur Random Sodium 01/14/18 01/14/18 01/14/18 11:32 11:32 11:32 WBC RBC Hgb Hct MCV MCH MCHC RDW Plt Count MPV Neut % (Auto) Lymph % (Auto) Collin % (Auto) Eos % (Auto) Baso % (Auto) Neut # (Auto) Lymph # (Auto) Collin # (Auto) Eos # (Auto) Baso # (Auto) WBC Differential Differential Comment Puncture Site Patient Temperature O2 Saturation ABG pH ABG pCO2 ABG pO2 ABG HCO3 ABG O2 Content ABG Base Excess ABG Methemoglobin Aroldo Test Hemoglobin Carboxyhemoglobin O2 Delivery Device Liter Flow Inspired O2 Critical Value Sodium Potassium Chloride Carbon Dioxide Anion Gap BUN Creatinine Estimated GFR POC Glucose Random Glucose Lactic Acid 2.3 H Calcium Phosphorus Total Creatine Kinase 39 Albumin Amylase 49 Lipase 55 L Urine Osmolality Ur Random Creatinine Ur Random Sodium 01/14/18 11:44 WBC RBC Hgb Hct MCV MCH MCHC RDW Plt Count MPV Neut % (Auto) Lymph % (Auto) Collin % (Auto) Eos % (Auto) Baso % (Auto) Neut # (Auto) Lymph # (Auto) Collin # (Auto) Eos # (Auto) Baso # (Auto) WBC Differential Differential Comment Puncture Site Patient Temperature O2 Saturation ABG pH ABG pCO2 ABG pO2 ABG HCO3 ABG O2 Content ABG Base Excess ABG Methemoglobin Aroldo Test Hemoglobin Carboxyhemoglobin O2 Delivery Device Liter Flow Inspired O2 Critical Value Sodium Potassium Chloride Carbon Dioxide Anion Gap BUN Creatinine Estimated GFR POC Glucose 190 H Random Glucose Lactic Acid Calcium Phosphorus Total Creatine Kinase Albumin Amylase Lipase Urine Osmolality Ur Random Creatinine Ur Random Sodium Result Diagrams: 01/14/18 07:05 01/14/18 07:05 Microbiology: Microbiology 12/24/17 12:20 Fungal Smear - Final Tissue - Buttock Rare budding yeast Fungal Culture - Final Talia albicans Talia tropicalis Imaging: Femur X-Ray 12/15/17 07:05 CONCLUSION: No fracture is identified. There is extensive soft tissue air in the right gluteal region and extending into the proximal and mid posterior thigh. The soft tissue air suggests an open wound. Pelvis X-Ray 12/15/17 07:05 CONCLUSION: No fracture is identified. However, there is extensive soft tissue air in the left gluteal region and left proximal thigh. Pelvis CT 12/15/17 07:52 CONCLUSION: 1. No fracture is identified. 2. Extensive subcutaneous and soft tissue gas bilaterally, left greater than right. It is most severe in the left gluteal region and extends into the proximal posterior thigh. The soft tissue air dissects through the gluteal musculature. There is adjacent subcutaneous edema. Foot X-Ray 12/18/17 00:00 CONCLUSION: Remote small avulsion fracture at the fifth toe. No acute bony abnormality. Venous Doppler Study 12/22/17 00:00 CONCLUSION: Extensive deep vein thrombosis of the left upper extremity. Abdomen X-Ray 01/08/18 00:08 CONCLUSION: Feeding tube tip is in the region of the distal stomach Chest X-Ray 01/14/18 00:00 CONCLUSION: 1. Tubes and lines, as above. 2. Slight improved aeration of the lower lung zones with persistent mild patchy airspace disease and probable trace left pleural effusion. Procedures: 12/15/2017: Endotracheal intubation 12/15/2017: Left subclavian central line placement 12/15/2017: NGT placement 12/15/2017: I&D with wound HEMOVAC placement 12/18/2017: I&D with wound VAC change 12/21/2017: I&D with wound VAC change 12/24/2017: I&D with wound VAC change 12/28/2017: perc trach, wound vac change to back, buttock, posterior thigh 12/31/2017: I&D with wound VAC change, removal of coccyx bone 01/04/2018: I&D with wound VAC change 01/08/2018: I&D with wound VAC change, partial closure Assessment and Plan - Disease Oriented Problem List (1) Septic shock with acute organ dysfunction due to anaerobic bacteria (2) Acute respiratory failure (3) Type 2 diabetes mellitus with hyperosmolar nonketotic hyperglycemia (4) Necrotizing fasciitis (5) MARIO (acute kidney injury) (6) Lactic acidosis (7) Hypernatremia - Symptom Scale (1) Pain 0-10 Scale: Unable to quantify (2) Debility 0-10 Scale: Unable to quantify (3) Fever 0-10 Scale: Unable to quantify (4) Dyspnea 0-10 Scale: Unable to quantify Pertinent Non-Medical Issues: Psychosocial:Originally from [place]. Currently . Spiritual: No sikh affiliation. Legal: Per [place] statutes, in the absence of written advanced directives health care proxy decision making will fall to the patient's , Tyrone. Ethical issues impacting care: No known ethical issues impacting care at this time. Important Contacts: Tyrone Middleton, : [phone] Sister Linette Lebron , Prognosis: Patient is critically ill and in septic shock with necrotizing fasciitis secondary to a chronic sacral decubitus. Upon arrival to the ED, the patient was hyperglycemic with a blood glucose of 610, severely dehydrated and in profound shock. She is intubated on mechanical ventilation requiring pressor support status post wide excision of the involved soft tissue. Patient will require further debridement in the future. She remains hemodynamically unstable and critically ill. Now declining, may not survive this hospitalization. Very poor overall prognosis for meaningful recovery. Code Status: Full Code Plan: * CODE STATUS: FULL CODE. Risks, benefits and limitations of CPR were discussed at length with patient's on 01/14. * HEALTHCARE DECISION-MAKING: Patient lacks insight and judgment related to her complicated clinical condition. It is unclear if she will regain capacity for medical decision-making. Per [place] statute, in the absence of written advanced directives healthcare proxy decision making falls to the patient's , Tyrone Middleton. He has accepted this role. * GOALS OF CARE: 01/14/18: As per patient's , goals remain aggressive at this time. Shared concerns of patient's ongoing clinical medical issues to include necrotizing fasciitis to back and buttocks, profound physical deconditioning, infection, respiratory distress status post tracheostomy, chronic ongoing medical issues and now transfer back to ICU for recurrent sepsis. Lengthy conversation regarding CODE status given tachypnea, tachycardia and hypotension, he desires FULL CODE understanding even with cardiac resuscitation she may not survive. He is appropriately upset and tells me he will be here tonight to see her and is off tomorrow. He is appreciative of the call and requests update 01/15/18. * Symptom management: = Pain: Multifactoral. Patient has a long history of chronic conditions. Possible contributing factors include severe peripheral arterial disease, recent BKA, peripheral neuropathy, sepsis, necrotizing fasciitis, invasive lines, immobility. Currently on fentanyl patch 50 mcg q72hrs. Appears comfortable at time of my visit, no further recommendations. = Debility/profound physical deconditioning: Patient with uncontrolled diabetes with severe peripheral arterial disease and smoking. 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 Debility anticipated to worsen. = Fever - due to sepsis. BC pending. likely due to large extensive wounds and possible fecal contamination. = Dyspnea: on oxygen via t-piece, may require mech vent given tachypnea. * Palliative care contact information was provided to the patient's . * Palliative care will continue to follow this patient throughout her hospitalization to establish trust, assist with symptom management and clarification of medical treatment goals. Attestation Attestation: To help prompt me to consider important information that might be impacting today's encounter and assessment, information from prior notes written by myself or my colleagues may have been "brought forward" into today's note. My signature on this note, however, is an attestation that I personally performed the exam, history, and/or decision-making noted today, and, unless otherwise indicated, the interactions with patient, family, and staff as well as the review of records all occurred today. I also attest that the listed assessment and stated plan reflect my best clinical judgment today based on the combination of historical information, prior notes, and today's exam/ interactions. When time spent is documented, it refers only to time spent today by the signer, or if indicated, combined time spent today by collaborating physician/nurse practitioner.
[2018-01-14 16:52] LABS: Bacteria,Urine Few /hpf; Bilirubin,Urine Negative (Negative); Clarity,Urine Hazy (Clear); Color,Urine Yellow (Yellw/Straw); Glucose,Urine (UA) Negative (Negative); Hyaline Casts,Urine 3 /lpf (0-3); Leukocyte Esterase,Urine Large (Negative); Mucus,Urine Few /lpf (Occasional); Nitrite,Urine Negative (Negative); Specific Gravity,Urine 1.015 (1.002-1.035); Squamous Epithelial Cell,Urine 1 /hpf (0-5)
--- NOTE | 2018-01-14 17:08 | P.OP ---
- Preoperative Diagnosis (1) Necrotizing fasciitis of pelvic region and thigh - Postoperative Diagnosis (1) Necrotizing fasciitis of pelvic region and thigh Procedure: vac change, washout Anesthesia: GETA Surgeon: Ventura Bazzi MD Pathology: none sent Operation and Findings: contamination
[2018-01-14] MEDS ORDERED: Phenylephrine/NS 1000 MCG/10ML Syringe IV.PUSH ONE (17:10)
[2018-01-14 19:02] LABS: ABG Base Excess 1.5 mmol/L (-2-2); ABG PCO2 35 mmHg (38-42); ABG PO2 78 mmHG (61-120)
[2018-01-14] MEDS ORDERED: Phenylephrine Inj 40 MG in Dextrose 5% in Water Inj 496 ML IV.CONT PRN ×2 (21:00)
[2018-01-14] MEDS: Potassium Phosphate 500 MG Soluble Tablet NG/OG SCH (21:11)
[2018-01-14] MEDS: Metoprolol Tartrate 50 MG Tablet NG/OG SCH (21:16)
[2018-01-14] MEDS: Senna/Docusate Sodium 8.6/50 MG Tablet NG/OG SCH (22:16)
[2018-01-15] MEDS: Insulin NovoLIN Regular Correctional Sugar Inj SQ SCH ×6 (00:49→21:31)
[2018-01-15] MEDS: Sodium Chloride 0.45 % Inj 1,000 ML IV.CONT SCH (00:49)
[2018-01-15] MEDS: Oral Hygiene Kit OROPHARYNG SCH ×4 (00:50→15:44)
[2018-01-15] MEDS: Piperacil/Tazo 3.375 GM Premix 50 ML IV.SIG SCH ×5 (00:50→18:03)
[2018-01-15] MEDS: Albumin Human 25% Inj 100 ML IV.SIG SCH ×4 (04:29→21:41)
[2018-01-15 05:08] LABS: Baso # (Auto) 0.2 th/mm3 (0.0-0.2); Baso % (Auto) 0.9 % (0.0-2.0); Eos # (Auto) 0.1 th/mm3 (0.0-0.4); Eos % (Auto) 0.4 % (0.0-4.0); Hematocrit 22.3 % (35.0-46.0); Hemoglobin 7.2 gm/dL (11.6-15.3); Lymph # (Auto) 2.8 th/mm3 (1.0-4.8); Lymph % (Auto) 13.2 % (9.0-44.0); Mean Corpuscular HGB Conc 32.3 % (32.0-36.0); Mean Corpuscular Hemoglobin 30.4 pg (27.0-34.0); Mean Corpuscular Volume 94.3 fL (80.0-100.0); Mean Platelet Volume 11.3 fL (7.0-11.0); Mono % (Auto) 4.6 % (0.0-8.0); Neut # (Auto) 17.1 th/mm3 (1.8-7.7); Neut % (Auto) 80.9 % (16.0-70.0); Platelet Count 285 th/mm3 (150-450); Red Blood Count 2.37 mil/mm3 (4.00-5.30); Red Cell Distribution Width 19.2 % (11.6-17.2); White Blood Count 21.2 th/mm3 (4.0-11.0)
[2018-01-15 05:28] LABS: Calcium 8.3 mg/dL (8.5-10.1); Carbon Dioxide 24.7 meq/L (21.0-32.0); Magnesium 2.5 mg/dL (1.5-2.5)
[2018-01-15] MEDS: metroNIDAZOLE 500 MG Tablet NG/OG SCH ×3 (05:58→21:40)
--- NOTE | 2018-01-15 08:43 | MP ---
cc: Ventura Bazzi MD DATE OF OPERATION: 01/14/2018 PREOPERATIVE DIAGNOSIS: Necrotizing fasciitis of back, buttock, and upper thigh. POSTOPERATIVE DIAGNOSIS: Necrotizing fasciitis of back, buttock, and upper thigh. PROCEDURE PERFORMED: VAC change. 330 total square cm SURGEON: Ventura Bazzi MD. CORPORATE TRAVEL EXPERT: None. ANESTHESIA: GETA. IV FLUIDS: See anesthesia sheet. ESTIMATED BLOOD LOSS: 10 mL. DRAINS: Hemovac placement. COMPLICATIONS: None. WOUND CLASSIFICATION: Contaminated. SPECIMENS: None. FINDINGS: Minimal purulence of the wound under skin, mostly with a healthy bleeding granulation tissue. INDICATIONS FOR PROCEDURE: The patient is a 52-year-old female who presented with poorly controlled diabetes. The patient had necrotizing fasciitis warranting emergency debridement. She is subsequently undergoing VAC change and treatment and is here for a planned VAC change. The patient did note to have sepsis overnight necessitating early VAC change. DETAILS OF PROCEDURE: The patient was taken to the operating suite, placed in the prone position, prepped and draped in the usual sterile fashion after induction of general endotracheal anesthesia via trach. A brief timeout done stating correct patient, procedure, and surgical site. All were in agreement with this. Attention was directed to the VAC. This was removed. [place] were removed. Sponge was removed. The wound noted to have some relatively healthy granulation tissue and bleeding tissue and muscle. Some of the subcutaneous tissue had some purulence without a definitive abscess collection. This was irrigated. No debridement done at this time. The couple sutures were cut and removed. The VAC was then placed, cut to size to wound areas and then some sponge placed subcutaneously deep in the tissues in order to obtain a wide VAC suction. 330 total square cm Plastic dressing was then placed. A track pad was placed. VAC placed to suction. Noted no leak and good suction. The patient was taken back to the ICU. COUNTS: All lap and instrument counts were correct. COMPLICATIONS: No complications. MD PAM Cordova/iqra , 08:12 AM , 08:22 AM [facility]
--- NOTE | 2018-01-15 09:02 | P.PNCC ---
Subjective Subjective Remarks/Hospital Course: Note for 01/05/18: This 52-year-old woman with long-standing uncontrolled diabetes mellitus and severe peripheral arterial disease related to a long-term heavy smoking history was found down at her home and initial blood glucose was 610. Her lower back and buttocks was exquisitely tender and a mid line stage IV sacral decubitus was oozing purulent material and inflamed and the surrounding soft tissue. White count was not elevated but 90% neutrophils. Temperature 97 degrees. Moderately encephalopathic though conversant. X-rays revealed no fractures in the pelvis but CAT scan demonstrated extensive subcutaneous air emanating in both directions left and right from the mid sacral region. This is clearly necrotizing fasciitis or some other gas-forming infection and the woman is critically ill. She received vancomycin, Zosyn, and clindamycin antibiotic therapy as quickly as possible and was transferred to the ICU for ongoing resuscitation. Because of worsening hemodynamic stability she required intubation and mechanical ventilation followed by central line placement on arrival to the ICU. Insulin drip infusion was started in the emergency department and glucose had declined into the low 400s. She was not in ketoacidosis but lactic acid was elevated at 3.1. General surgery and orthopedic surgery were consulted for recommendations and it was felt that this woman was too unstable to tolerate an operative procedure immediately. We continue her ongoing resuscitation and trial in the ICU at this stage. 12/16: Following aggressive resuscitation yesterday for the treatment of severe hyperglycemia, septic shock, respiratory failure, metabolic acidosis, acute kidney injury, the patient went to the operating room with an extensive wide debridement bilateral gluteal and left thigh soft tissue and muscle. Primary antibiotic coverage at this point is vancomycin, cefepime, clindamycin. The patient started to make urine late yesterday afternoon and has continued to acceptable output since. Lactic acidosis is 2.0 this morning but metabolic acidosis persists despite bicarb drip. She remains on vasopressor support and hemodynamically unstable. 12/17: s/p debridement of large nec fasc wound. remains in shock today. also very hypoglycemic requiring multiple D50 amps overnight. 12/18: back in worsening shock. vasopressor support higher. required 2L crystalloid overnight and additional 1L and 500cc albumin today. ivc completely flat on bedside echo. LVEF hyperdynamic. no pericardial effusion. spoken with gen surg. plan to go back early to eval for worsening necrosis. fio2 also up to 100% and peep 10- hypoxic, likely early ARDS. 12/19: clinically doing better. still in shock on vasopressors, but requirements are lower and lactate cleared. Cr slowly uptrending. SVV still 19% today and appears to be volume responsive. gen surgery ordered 2 units prbc for falling hgb in the setting of blood loss with surgical intervention yesterday. fio2 improving. glycemic control also improving. 12/20: Markedly impaired oxygenation persists. Still requiring elevated end expiratory pressure. Nutritional support continues but she remains catabolic. It will be difficult to keep up with her nutritional needs. 12/21: Continued severe sepsis requiring vasopressor support and mechanical ventilation. Oxygenation remains impaired and smoldering metabolic acidosis persists. Despite hemodynamic instability the patient's only hope for survival is with infection source control through further debridement. Clearly a greatly increased risk however for any procedure. 12/22: Persistent septic shock course requiring vasopressor support and regular debridement. Good antibiotic coverage but she continues to require adjustment of ventilator, hemodynamic support drugs, antibiotics, intravenous fluids. Her nutritional status was quite depleted on arrival and continues to deteriorate despite adjuvant nutrition. 12/23: Patient continues septic course. She has developed venous clot throughout her left internal jugular subclavian and axillary vein system. Not a candidate for full anticoagulation because of need for frequent surgical debridement. We will pull out the catheter today and placing In the right subclavian route. 12/24 remains critically ill and septic remains on Rj-Synephrine at 50 mcg/kg/ min. WBC count increasing 20 6K today. Antibiotics have been changed by ID. Diflucan added for Talia UTI. Plan for OR today per surgery 12/25: Went to OR yesterday, s/p Incision, drainage with excisional debridement of back, buttock, thigh, and VAC change. Main septic White count increasing 31, 000 today, remains on pressors vasopressin and Rj-Synephrine. 12/26: Remains critical remains on vasopressin to maintain blood pressure and map above 65, currently off Rj-Synephrine. Remains severely fluid overloaded approximately 20 kg up. Despite pressor use will start IV diuretics to achieve negative fluid balance 12/27: Intubated sedated but more awake follows some commands. Hemoglobin down to 6.4, 2 g dropped, receiving 2 units of PRBC. No obvious bleeding noted. Currently had been weaned off the pressors. Or planned for tomorrow again 12/28: OR today for wound VAC change and I&D, possible tracheostomy. Potassium is 2.6 getting replaced. Hemoglobin stable. Remains off pressors. Urine output almost 8 L with forced diuresis 12/29: Status post OR for wound VAC change in tracheostomy yesterday. Getting for his diuresis urine output more than 4 L in 24 hours. Remains intubated sedated intermittently follows commands. Plan for I&D wound VAC change again on Saturday 12/30: Remains intubated sedated more stable. Urine output remains excellent with diuresis. Plan for OR in a.m. for further I&D and VAC change 12/31: Patient remains intubated plan for OR today with Dr. Muir for further I&D and wound VAC change. Making urine more than 4 L in 24 hours with diuresis. Getting closer to admission weight. Potassium 3.3 getting replacement 01/01: Remains intubated sedated failing CPAP due to low tidal volumes. Status post OR yesterday for the I&D tomorrow planned by general surgery. Urine output 3 L in 24 hours 01/02: Potassium being replaced. Ready for OR today. Return from the OR with stable hemodynamics on mechanical ventilation. 01/03: Attempted spontaneous breathing trials today and converted to T piece. We will continue this method of weaning. Nutrition infusing and well- tolerated. Severity of wound will require a lengthy hospitalization. 01/04: Nasogastric tube is out. She is much more alert and we will try a swallow evaluation before replacing. Contraction alkalosis is developing with diuretics, will add a carbonic anhydrase inhibitor. 01/05: Breathing comfortably on T-piece. Failed swallow eval. Will need to replace nasogastric tube or Dobbhoff for nutrition. 01/06: Alert interactive. Failed swallow eval possibly due to the distortion of the trach cuff. Continue feeding through Dobbhoff tube. Patient is stable to go to floor now. Fentanyl drip converted to fentanyl patch. Adequately diuresed of post edema, discontinue diuretics and replace potassium. After K replaced add lisinopril now that GFR back to normal. 01/07 - 01/13: Patient undergoing care on floor with continuous tube feeding and serial surgical debridements. Wound VAC in place. 01/14: Patient developed temperature of 103 with sustained tachycardia and obtundation. She clearly appears septic. Cultures have been ordered by the floor staff and resuscitation with isotonic crystalloid has begun in the ICU. Her abdomen is soft and her chest x-ray is clear. She has no indwelling lines. The likely culprit is the depths of the wound and/or stool contamination. 01/15: Patient underwent debridement of the lumbar wounds yesterday. She is still requiring vasopressor therapy to support her blood pressure and mechanical ventilation for respiratory failure. She remains critically ill. Objective Vital Signs / I&O: Vital Signs 01/14/18 09:36 01/14/18 10:00 01/14/18 10:04 Temperature Pulse Rate 123 H 123 H Respiratory Rate 45 H 43 H Blood Pressure 112/56 L Pulse Oximetry 97 100 100 01/14/18 10:19 01/14/18 10:34 01/14/18 10:49 Temperature Pulse Rate 121 H 122 H 120 H Respiratory Rate 44 H 47 H 48 H Blood Pressure 108/57 L 114/58 L 103/57 L Pulse Oximetry 100 100 100 01/14/18 11:00 01/14/18 11:04 01/14/18 11:19 Temperature Pulse Rate 118 H 118 H 118 H Respiratory Rate 44 H 43 H 42 H Blood Pressure 109/55 L 111/56 L Pulse Oximetry 100 100 100 01/14/18 11:34 01/14/18 11:49 01/14/18 12:00 Temperature 101.9 F H Pulse Rate 121 H 124 H 127 H Respiratory Rate 42 H 41 H 45 H Blood Pressure 109/58 L 115/58 L 113/57 L Pulse Oximetry 100 100 100 01/14/18 12:04 01/14/18 12:19 01/14/18 12:34 Temperature Pulse Rate 126 H 126 H 125 H Respiratory Rate 43 H 41 H 44 H Blood Pressure 112/60 111/59 L 113/58 L Pulse Oximetry 100 100 100 01/14/18 12:49 01/14/18 13:00 01/14/18 13:04 Temperature Pulse Rate 126 H 128 H 127 H Respiratory Rate 43 H 49 H 48 H Blood Pressure 108/55 L 110/56 L Pulse Oximetry 100 100 100 01/14/18 13:19 01/14/18 13:34 01/14/18 13:49 Temperature Pulse Rate 126 H 125 H 124 H Respiratory Rate 48 H 46 H 47 H Blood Pressure 112/57 L 112/58 L 111/57 L Pulse Oximetry 100 100 100 01/14/18 14:00 01/14/18 14:04 01/14/18 15:44 Temperature Pulse Rate 123 H 125 H 127 H Respiratory Rate 46 H 46 H 45 H Blood Pressure 113/57 L Pulse Oximetry 100 100 01/14/18 16:15 01/14/18 16:30 01/14/18 16:45 Temperature 102.5 F H Pulse Rate 120 H 121 H 121 H Respiratory Rate 24 24 24 Blood Pressure 111/60 113/61 114/63 Pulse Oximetry 96 100 97 01/14/18 17:00 01/14/18 18:14 01/14/18 18:22 Temperature 98.6 F Pulse Rate 112 H 109 H Respiratory Rate 24 14 20 Blood Pressure 116/64 86/51 L 76/53 L Pulse Oximetry 93 L 100 100 01/14/18 18:23 01/14/18 18:25 01/14/18 18:28 Temperature Pulse Rate 107 H 107 H Respiratory Rate 14 14 14 Blood Pressure 76/52 L 81/53 L Pulse Oximetry 98 97 98 01/14/18 18:30 01/14/18 18:35 01/14/18 18:40 Temperature Pulse Rate 106 H 104 H 104 H Respiratory Rate 14 14 14 Blood Pressure 84/52 L 86/50 L 84/53 L Pulse Oximetry 98 97 97 01/14/18 18:45 01/14/18 18:50 01/14/18 18:55 Temperature Pulse Rate 104 H 104 H 102 H Respiratory Rate 14 14 14 Blood Pressure 86/51 L 89/55 L 92/54 L Pulse Oximetry 100 100 100 01/14/18 19:00 01/14/18 19:10 01/14/18 19:15 Temperature 99.3 F Pulse Rate 101 H 100 H Respiratory Rate 14 14 Blood Pressure 93/55 L 113/57 L Pulse Oximetry 100 100 100 01/14/18 19:20 01/14/18 20:00 01/14/18 20:01 Temperature 99.1 F Pulse Rate 101 H 100 H 101 H Respiratory Rate 22 21 21 Blood Pressure 95/70 L 133/63 Pulse Oximetry 100 100 100 01/14/18 20:31 01/14/18 21:00 01/14/18 21:01 Temperature Pulse Rate 97 H 100 H 100 H Respiratory Rate 21 20 21 Blood Pressure 137/72 142/70 H Pulse Oximetry 100 100 100 01/14/18 21:28 01/14/18 21:29 01/14/18 21:30 Temperature Pulse Rate 100 H 100 H Respiratory Rate 21 22 Blood Pressure 156/77 H 160/79 H 158/76 H Pulse Oximetry 100 100 01/14/18 21:31 01/14/18 21:32 01/14/18 21:33 Temperature Pulse Rate 99 H 99 H Respiratory Rate 21 22 Blood Pressure 163/77 H 156/74 H 159/76 H Pulse Oximetry 100 100 01/14/18 22:00 01/14/18 22:03 01/14/18 22:33 Temperature Pulse Rate 96 H 99 H 91 H Respiratory Rate 20 22 19 Blood Pressure 153/73 H 154/73 H Pulse Oximetry 100 100 100 01/14/18 23:00 01/14/18 23:03 01/14/18 23:33 Temperature Pulse Rate 86 86 88 Respiratory Rate 19 18 20 Blood Pressure 153/70 H 151/75 H Pulse Oximetry 100 100 100 01/14/18 23:46 01/15/18 00:00 01/15/18 00:03 Temperature 100.0 F H Pulse Rate 90 90 90 Respiratory Rate 23 22 23 Blood Pressure 150/73 H Pulse Oximetry 97 100 100 01/15/18 00:33 01/15/18 01:00 01/15/18 01:03 Temperature Pulse Rate 92 H 87 87 Respiratory Rate 26 H 23 23 Blood Pressure 153/73 H 159/76 H Pulse Oximetry 88 L 100 100 01/15/18 01:33 01/15/18 02:00 01/15/18 02:03 Temperature Pulse Rate 91 H 91 H 92 H Respiratory Rate 22 22 21 Blood Pressure 153/75 H 159/75 H Pulse Oximetry 100 100 100 01/15/18 02:27 01/15/18 02:33 01/15/18 03:00 Temperature Pulse Rate 91 H 87 94 H Respiratory Rate 21 19 29 H Blood Pressure 164/78 H 113/58 L Pulse Oximetry 100 100 100 01/15/18 03:03 01/15/18 03:25 01/15/18 03:33 Temperature Pulse Rate 93 H 96 H 98 H Respiratory Rate 21 24 26 H Blood Pressure 136/72 130/66 Pulse Oximetry 100 100 100 01/15/18 04:00 01/15/18 04:03 01/15/18 07:33 Temperature 98.1 F Pulse Rate 97 H 97 H 94 H Respiratory Rate 23 22 22 Blood Pressure 142/72 H Pulse Oximetry 100 100 01/15/18 07:38 Temperature Pulse Rate Respiratory Rate 24 Blood Pressure Pulse Oximetry 100 Intake & Output 01/14/18 01/15/18 01/15/18 18:59 06:59 18:59 Intake Total 2632.5 / 2632.5 935 / 935 0 / 0 Output Total 600 / 600 850 / 850 Balance 2032.5 / 2032.5 85 / 85 0 / 0 Weight 63.4 kg Intake: IV 1572.5 / 1572.5 935 / 935 0 / 0 LR 1000 mL Inj 1,000 ML @ 125 700 / 700 mls/hr IV.CONT .Q8H [facility] Rx#: [id number] 1/2 Normal Saline Inj 1,000 ML 0 / 0 35 / 35 @ 70 mls/hr IV.CONT .[id number] [facility] Rx#:[id number] Flexbumin 25% Inj 100 ML @ 60 100 / 100 mls/hr IV.SIG Q6H [facility] Rx#: [id number] LR 1000 mL Inj 1,000 ML @ Wide 1000 / 1000 Open IV.SIG BOLUS ONE Rx#: [id number] Zosyn 3.375 GM Premix 50 ML @ 50 / 50 100 / 100 0 / 0 100 mls/hr IV.SIG Q6H [facility] Rx#: [id number] Potassium Phosphate Inj 30 MMOL 260 / 260 In NS Inj 250 ML @ 43.333 mls/ hr IV.SIG ONCE ONE Rx#:[id number] Vancomycin Inj 1,250 MG In NS 262.5 / 262.5 Inj 250 ML @ 250 mls/hr IV.SIG ONCE ONE Rx#:[id number] Tube Feeding 590 / 590 Tube Irrigant 20 / 20 Water Bolus Amount 450 / 450 Output: Urine Amount (Catheter) 450 / 450 650 / 650 Indwelling Urethral Catheter 450 / 450 650 / 650 Wound Vac Amount 150 / 150 200 / 200 Posterior Sacrum 150 / 150 Sacrum 200 / 200 Other: Mode Setting Posterior Sacrum Continuous Continuous Sacrum Continuous Date of Last Bowel Movement 01/14/18 01/14/18 01/15/18 Result Diagrams: 01/15/18 04:45 01/15/18 04:45 Objective Remarks: General: Very ill-appearing middle-aged woman, on mechanical ventilation via tracheostomy. Head: Atraumatic, edentulous Neck: Supple, trach site clean, dry. Lungs: [place] clear, on mechanical ventilation air movement good bilaterally Heart: Tachycardic rate and regular rhythm. Neck veins are not distended. Abdomen: Soft, no guarding, no peritoneal irritation. Bowel sounds are present. Back: Wound VAC remains in place over lower bilateral lumbar region. Extremities: Warm, well perfused, status post below-knee amputation right side. Skin remains wrinkled. Neurological: Tracheostomy, withdraws 4 limbs to stimulation. Pupils 2 mm, reactive. Tracks with eyes. Assessment and Plan - Problem List (1) Septic shock with acute organ dysfunction due to anaerobic bacteria Code(s): A41.4 - Sepsis due to anaerobes; R65.21 - Severe sepsis with septic shock Status: Acute (2) Acute respiratory failure Code(s): J96.00 - Acute respiratory failure, unspecified whether with hypoxia or hypercapnia Status: Acute (3) Necrotizing fasciitis Code(s): M72.6 - Necrotizing fasciitis Status: Acute (4) Type 2 diabetes mellitus with hyperosmolar nonketotic hyperglycemia Code(s): E11.01 - Type 2 diabetes mellitus with hyperosmolarity with coma Status: Acute (5) MARIO (acute kidney injury) Code(s): N17.9 - Acute kidney failure, unspecified Status: Acute (6) Lactic acidosis Code(s): E87.2 - Acidosis Status: Acute - Assessment and Plan Plan: Assessment: 52yF with large necrotizing soft tissue infection of the lower back and sacrum complicated by septic shock and multiorgan dysfunction. Returns to ICU in florid sepsis, 2 OR yesterday for further debridement of sacral wounds. Plan: Neurological Acute metabolic encephalopathy From sepsis. Cardiovascular Septic Shock- improving Myocardial dysfunction secondary to septic shock Fluid overload Recurrent, check CBC, lactic acid, creatinine kinase, lipase. Respiratory Acute hypoxic and hypercarbic respiratory failure- persistent - s/p Trach in OR 12/28/17. -Mechanical ventilation assist control mode. Endocrinology Diabetes Severe hypoglycemia - Med scale SSI. - Follow potassium and magnesium closely - Exacerbated by sepsis. Hematology/Infectious Disease Septic Shock Necrotizing soft tissue infection - Follow white count and platelet count closely. - Continue daptomycin and Zosyn. Diflucan for fungal coverage. -We will ask surgery to see. GI Acute protein calorie malnutrition- severe - prealbumin 5 on 12/18. severely malnourished. - daily bmp, mg, phos - Tube feeds infusing, tolerated - Follow prealbumin weekly -Arabella shield placed to protect wounds from soilage. Acute kidney injury - Tristan required for hourly urine output and to protect perineal region HEME Left upper extremity DVT - DVT left internal jugular, subclavian, axillary and distal arm veins. - Cannot anticoagulate secondary to blood loss anemia requiring blood transfusion, frequent surgeries Prophylaxis - Pepcid for GI ulcer prophylaxis - SCDs for DVT prophylaxis - Hold chemical DVT prophylaxis until ongoing surgical decisions regarding further debridement are made Lines: PIV Overall impression: This woman was initially critically ill and in septic shock with necrotizing fasciitis emanating from a deep chronic sacral decubitus ulcer. She has required multiple OR trips for I&D and VAC changes. Family request continued aggressive care. She returns to the ICU 01/14 in severe sepsis with encephalopathy and unstable hemodynamics. Remains unstable and we are unable to wean from the ventilator. Critical care 40 minutes aside from procedures.
[2018-01-15] MEDS: Potassium Phosphate 500 MG Soluble Tablet NG/OG SCH ×2 (09:08→21:34)
[2018-01-15] MEDS: hydrALAZINE 50 MG Tablet NG/OG SCH ×3 (09:08→17:07)
[2018-01-15] MEDS: Chlorhexidine 0.12% Oral Kit 15 ML UDC OROPHARYNG SCH ×2 (09:08→21:32)
[2018-01-15] MEDS: Potassium Bicarbonate 25 MEQ Effervescent Tablet NG/OG SCH ×2 (09:08→21:32)
[2018-01-15] MEDS: Lansoprazole ODT 15 MG Tablet NG/OG SCH (09:09)
[2018-01-15] MEDS: Senna/Docusate Sodium 8.6/50 MG Tablet NG/OG SCH ×2 (09:09→21:40)
[2018-01-15] MEDS: Lisinopril 5 MG Tablet NG/OG SCH (09:09)
[2018-01-15] MEDS: Collagenase Oint 30 GM Tube TOPICAL SCH (09:09)
[2018-01-15] MEDS: Insulin Detemir Inj 1,000 UNIT/10 ML Vial SQ SCH ×2 (09:09→21:36)
[2018-01-15] MEDS: Metoprolol Tartrate 50 MG Tablet NG/OG SCH ×2 (09:09→21:38)
[2018-01-15] MEDS: Vancomycin Inj 1,250 MG in Sodium Chlor 0.9% Inj 250 ML IV.SIG SCH (12:26)
--- NOTE | 2018-01-15 12:27 | P.PNNP ---
Subjective Interval history: Patient is status post debridement of necrotizing fasciitis is slow to respond Physical Exam Vital signs: Vital Signs 01/14/18 12:34 01/14/18 12:49 01/14/18 13:00 Temperature Pulse Rate 125 H 126 H 128 H Respiratory Rate 44 H 43 H 49 H Blood Pressure 113/58 L 108/55 L Pulse Oximetry 100 100 100 01/14/18 13:04 01/14/18 13:19 01/14/18 13:34 Temperature Pulse Rate 127 H 126 H 125 H Respiratory Rate 48 H 48 H 46 H Blood Pressure 110/56 L 112/57 L 112/58 L Pulse Oximetry 100 100 100 01/14/18 13:49 01/14/18 14:00 01/14/18 14:04 Temperature Pulse Rate 124 H 123 H 125 H Respiratory Rate 47 H 46 H 46 H Blood Pressure 111/57 L 113/57 L Pulse Oximetry 100 100 100 01/14/18 15:44 01/14/18 16:15 01/14/18 16:30 Temperature 102.5 F H Pulse Rate 127 H 120 H 121 H Respiratory Rate 45 H 24 24 Blood Pressure 111/60 113/61 Pulse Oximetry 96 100 01/14/18 16:45 01/14/18 17:00 01/14/18 18:14 Temperature 98.6 F Pulse Rate 121 H 112 H Respiratory Rate 24 24 14 Blood Pressure 114/63 116/64 86/51 L Pulse Oximetry 97 93 L 100 01/14/18 18:22 01/14/18 18:23 01/14/18 18:25 Temperature Pulse Rate 109 H 107 H Respiratory Rate 20 14 14 Blood Pressure 76/53 L 76/52 L Pulse Oximetry 100 98 97 01/14/18 18:28 01/14/18 18:30 01/14/18 18:35 Temperature Pulse Rate 107 H 106 H 104 H Respiratory Rate 14 14 14 Blood Pressure 81/53 L 84/52 L 86/50 L Pulse Oximetry 98 98 97 01/14/18 18:40 01/14/18 18:45 01/14/18 18:50 Temperature Pulse Rate 104 H 104 H 104 H Respiratory Rate 14 14 14 Blood Pressure 84/53 L 86/51 L 89/55 L Pulse Oximetry 97 100 100 01/14/18 18:55 01/14/18 19:00 01/14/18 19:10 Temperature Pulse Rate 102 H 101 H Respiratory Rate 14 14 Blood Pressure 92/54 L 93/55 L Pulse Oximetry 100 100 100 01/14/18 19:15 01/14/18 19:20 01/14/18 20:00 Temperature 99.3 F 99.1 F Pulse Rate 100 H 101 H 100 H Respiratory Rate 14 22 21 Blood Pressure 113/57 L 95/70 L Pulse Oximetry 100 100 100 01/14/18 20:01 01/14/18 20:31 01/14/18 21:00 Temperature Pulse Rate 101 H 97 H 100 H Respiratory Rate 21 21 20 Blood Pressure 133/63 137/72 Pulse Oximetry 100 100 100 01/14/18 21:01 01/14/18 21:28 01/14/18 21:29 Temperature Pulse Rate 100 H 100 H Respiratory Rate 21 21 Blood Pressure 142/70 H 156/77 H 160/79 H Pulse Oximetry 100 100 01/14/18 21:30 01/14/18 21:31 01/14/18 21:32 Temperature Pulse Rate 100 H 99 H Respiratory Rate 22 21 Blood Pressure 158/76 H 163/77 H 156/74 H Pulse Oximetry 100 100 01/14/18 21:33 01/14/18 22:00 01/14/18 22:03 Temperature Pulse Rate 99 H 96 H 99 H Respiratory Rate 22 20 22 Blood Pressure 159/76 H 153/73 H Pulse Oximetry 100 100 100 01/14/18 22:33 01/14/18 23:00 01/14/18 23:03 Temperature Pulse Rate 91 H 86 86 Respiratory Rate 19 19 18 Blood Pressure 154/73 H 153/70 H Pulse Oximetry 100 100 100 01/14/18 23:33 01/14/18 23:46 01/15/18 00:00 Temperature 100.0 F H Pulse Rate 88 90 90 Respiratory Rate 20 23 22 Blood Pressure 151/75 H Pulse Oximetry 100 97 100 01/15/18 00:03 01/15/18 00:33 01/15/18 01:00 Temperature Pulse Rate 90 92 H 87 Respiratory Rate 23 26 H 23 Blood Pressure 150/73 H 153/73 H Pulse Oximetry 100 88 L 100 01/15/18 01:03 01/15/18 01:33 01/15/18 02:00 Temperature Pulse Rate 87 91 H 91 H Respiratory Rate 23 22 22 Blood Pressure 159/76 H 153/75 H Pulse Oximetry 100 100 100 01/15/18 02:03 01/15/18 02:27 01/15/18 02:33 Temperature Pulse Rate 92 H 91 H 87 Respiratory Rate 21 21 19 Blood Pressure 159/75 H 164/78 H 113/58 L Pulse Oximetry 100 100 100 01/15/18 03:00 01/15/18 03:03 01/15/18 03:25 Temperature Pulse Rate 94 H 93 H 96 H Respiratory Rate 29 H 21 24 Blood Pressure 136/72 Pulse Oximetry 100 100 100 01/15/18 03:33 01/15/18 04:00 01/15/18 04:03 Temperature 98.1 F Pulse Rate 98 H 97 H 97 H Respiratory Rate 26 H 23 22 Blood Pressure 130/66 142/72 H Pulse Oximetry 100 100 100 01/15/18 04:33 01/15/18 05:00 01/15/18 05:03 Temperature Pulse Rate 92 H 98 H 98 H Respiratory Rate 22 21 21 Blood Pressure 143/71 H 150/70 H Pulse Oximetry 100 100 100 01/15/18 05:33 01/15/18 06:00 01/15/18 06:03 Temperature Pulse Rate 98 H 96 H 96 H Respiratory Rate 21 22 21 Blood Pressure 140/72 146/74 H Pulse Oximetry 100 100 100 01/15/18 06:33 01/15/18 07:00 01/15/18 07:03 Temperature Pulse Rate 97 H 98 H 97 H Respiratory Rate 23 21 21 Blood Pressure 132/66 135/70 Pulse Oximetry 100 100 100 01/15/18 07:33 01/15/18 07:38 01/15/18 08:00 Temperature Pulse Rate 95 H 100 H Respiratory Rate 22 24 31 H Blood Pressure 127/68 124/66 Pulse Oximetry 100 100 100 01/15/18 08:15 01/15/18 08:30 01/15/18 08:45 Temperature 100.2 F H Pulse Rate 102 H 101 H 109 H Respiratory Rate 31 H 31 H 31 H Blood Pressure 125/68 129/71 103/58 L Pulse Oximetry 99 98 97 01/15/18 09:00 01/15/18 09:15 01/15/18 09:30 Temperature Pulse Rate 108 H 109 H 110 H Respiratory Rate 34 H 32 H 31 H Blood Pressure 103/58 L 98/57 L 100/57 L Pulse Oximetry 97 98 99 01/15/18 09:44 01/15/18 09:45 01/15/18 10:00 Temperature 100.3 F H Pulse Rate 110 H 110 H 110 H Respiratory Rate 26 H 23 22 Blood Pressure 100/57 L 97/60 L 114/64 Pulse Oximetry 100 100 100 01/15/18 10:15 01/15/18 10:30 01/15/18 10:45 Temperature Pulse Rate 109 H 103 H 104 H Respiratory Rate 24 22 23 Blood Pressure 114/62 102/58 L 103/61 Pulse Oximetry 100 100 100 01/15/18 11:00 01/15/18 11:15 01/15/18 11:30 Temperature Pulse Rate 104 H 102 H 100 H Respiratory Rate 19 20 19 Blood Pressure 107/65 109/65 114/68 Pulse Oximetry 100 100 100 01/15/18 11:45 01/15/18 12:00 01/15/18 12:08 Temperature 100.0 F H Pulse Rate 100 H 102 H 108 H Respiratory Rate 22 23 26 H Blood Pressure 114/64 118/64 Pulse Oximetry 100 100 01/15/18 12:09 01/15/18 12:15 Temperature Pulse Rate 108 H Respiratory Rate 31 H 31 H Blood Pressure 115/65 Pulse Oximetry 100 100 Intake & Output 01/14/18 01/15/18 01/15/18 18:59 06:59 18:59 Intake Total 2632.5 / 2632.5 1135 / 1135 615 / 615 Output Total 600 / 600 850 / 850 Balance 2032.5 / 2032.5 285 / 285 615 / 615 Weight 63.4 kg Intake: IV 1572.5 / 1572.5 1135 / 1135 615 / 615 LR 1000 mL Inj 1,000 ML @ 125 700 / 700 mls/hr IV.CONT .Q8H [facility] Rx#: [id number] 1/2 Normal Saline Inj 1,000 ML 0 / 0 35 / 35 465 / 465 @ 70 mls/hr IV.CONT .[id number] [facility] Rx#:[id number] Flexbumin 25% Inj 100 ML @ 60 200 / 200 100 / 100 mls/hr IV.SIG Q6H [facility] Rx#: [id number] LR 1000 mL Inj 1,000 ML @ Wide 1000 / 1000 Open IV.SIG BOLUS ONE Rx#: [id number] Zosyn 3.375 GM Premix 50 ML @ 50 / 50 100 / 100 50 / 50 100 mls/hr IV.SIG Q6H [facility] Rx#: [id number] Potassium Phosphate Inj 30 MMOL 260 / 260 In NS Inj 250 ML @ 43.333 mls/ hr IV.SIG ONCE ONE Rx#:[id number] Vancomycin Inj 1,250 MG In NS 262.5 / 262.5 Inj 250 ML @ 250 mls/hr IV.SIG ONCE ONE Rx#:[id number] Tube Feeding 590 / 590 Tube Irrigant 20 / 20 Water Bolus Amount 450 / 450 Intake (Blood Product) Amt 0 / 0 Rbc As-3 Leukoreduced Unit 0 / 0 [id number] Output: Urine Amount (Catheter) 450 / 450 650 / 650 Indwelling Urethral Catheter 450 / 450 650 / 650 Wound Vac Amount 150 / 150 200 / 200 Posterior Sacrum 150 / 150 Sacrum 200 / 200 Other: Mode Setting Posterior Sacrum Continuous Continuous Continuous Sacrum Continuous Date of Last Bowel Movement 01/14/18 01/14/18 01/15/18 Narrative: chronically ill and debilitated, very weak frail 52yo f opens eyes min responsive some motion to follow commands but too weak heart [id number] reg lungs clear decreased bs bl abd soft nondt pos bs ext gangrenous 2-4 toes left foot, right bka, wound vac in place in place left buttocks and thigh - Urinary Catheter Management Indwelling Urethral Catheter Cath placed during this visit: yes Reason for continuing: Hourly intake/output Insertion date: 01/13/18 Insertion time: 01:00 1 Cath placed during this visit: yes, but has since been removed by the nurse Urethral indwelling: Yes Reason for continuing: Severe pressure ulcer/wound Insertion date: 12/15/17 Removal date: 01/13/18 Removal time: 01:00 Assessment and Plan - Assessment (1) MARIO (acute kidney injury) Code(s): N17.9 - Acute kidney failure, unspecified Status: Acute (2) Hypernatremia Code(s): E87.0 - Hyperosmolality and hypernatremia Status: Acute (3) Type 2 diabetes mellitus with hyperosmolar nonketotic hyperglycemia Code(s): E11.01 - Type 2 diabetes mellitus with hyperosmolarity with coma Status: Acute (4) Necrotizing fasciitis of pelvic region and thigh Code(s): M72.6 - Necrotizing fasciitis Status: Acute - Plan Patient was requiring frequent surgery and debridement getting IV fluids sodium has improved to 151 creatinine 1.4 Getting albumin 25 g every 6 hourly, free water flushes 200 cc every 4 hours Remains nonoliguric Added one fourth of normal saline at 84 cc an hour Patient is having sepsis and being observed in intensive care unit
--- NOTE | 2018-01-15 13:46 | P.PNGS ---
Subjective Patient reports: pain is less (off pressors) Physical Exam Vital signs: Vital Signs 01/14/18 13:49 01/14/18 14:00 01/14/18 14:04 Temperature Pulse Rate 124 H 123 H 125 H Respiratory Rate 47 H 46 H 46 H Blood Pressure 111/57 L 113/57 L Pulse Oximetry 100 100 100 01/14/18 15:44 01/14/18 16:15 01/14/18 16:30 Temperature 102.5 F H Pulse Rate 127 H 120 H 121 H Respiratory Rate 45 H 24 24 Blood Pressure 111/60 113/61 Pulse Oximetry 96 100 01/14/18 16:45 01/14/18 17:00 01/14/18 18:14 Temperature 98.6 F Pulse Rate 121 H 112 H Respiratory Rate 24 24 14 Blood Pressure 114/63 116/64 86/51 L Pulse Oximetry 97 93 L 100 01/14/18 18:22 01/14/18 18:23 01/14/18 18:25 Temperature Pulse Rate 109 H 107 H Respiratory Rate 20 14 14 Blood Pressure 76/53 L 76/52 L Pulse Oximetry 100 98 97 01/14/18 18:28 01/14/18 18:30 01/14/18 18:35 Temperature Pulse Rate 107 H 106 H 104 H Respiratory Rate 14 14 14 Blood Pressure 81/53 L 84/52 L 86/50 L Pulse Oximetry 98 98 97 01/14/18 18:40 01/14/18 18:45 01/14/18 18:50 Temperature Pulse Rate 104 H 104 H 104 H Respiratory Rate 14 14 14 Blood Pressure 84/53 L 86/51 L 89/55 L Pulse Oximetry 97 100 100 01/14/18 18:55 01/14/18 19:00 01/14/18 19:10 Temperature Pulse Rate 102 H 101 H Respiratory Rate 14 14 Blood Pressure 92/54 L 93/55 L Pulse Oximetry 100 100 100 01/14/18 19:15 01/14/18 19:20 01/14/18 20:00 Temperature 99.3 F 99.1 F Pulse Rate 100 H 101 H 100 H Respiratory Rate 14 22 21 Blood Pressure 113/57 L 95/70 L Pulse Oximetry 100 100 100 01/14/18 20:01 01/14/18 20:31 01/14/18 21:00 Temperature Pulse Rate 101 H 97 H 100 H Respiratory Rate 21 21 20 Blood Pressure 133/63 137/72 Pulse Oximetry 100 100 100 01/14/18 21:01 01/14/18 21:28 01/14/18 21:29 Temperature Pulse Rate 100 H 100 H Respiratory Rate 21 21 Blood Pressure 142/70 H 156/77 H 160/79 H Pulse Oximetry 100 100 01/14/18 21:30 01/14/18 21:31 01/14/18 21:32 Temperature Pulse Rate 100 H 99 H Respiratory Rate 22 21 Blood Pressure 158/76 H 163/77 H 156/74 H Pulse Oximetry 100 100 01/14/18 21:33 01/14/18 22:00 01/14/18 22:03 Temperature Pulse Rate 99 H 96 H 99 H Respiratory Rate 22 20 22 Blood Pressure 159/76 H 153/73 H Pulse Oximetry 100 100 100 01/14/18 22:33 01/14/18 23:00 01/14/18 23:03 Temperature Pulse Rate 91 H 86 86 Respiratory Rate 19 19 18 Blood Pressure 154/73 H 153/70 H Pulse Oximetry 100 100 100 01/14/18 23:33 01/14/18 23:46 01/15/18 00:00 Temperature 100.0 F H Pulse Rate 88 90 90 Respiratory Rate 20 23 22 Blood Pressure 151/75 H Pulse Oximetry 100 97 100 01/15/18 00:03 01/15/18 00:33 01/15/18 01:00 Temperature Pulse Rate 90 92 H 87 Respiratory Rate 23 26 H 23 Blood Pressure 150/73 H 153/73 H Pulse Oximetry 100 88 L 100 01/15/18 01:03 01/15/18 01:33 01/15/18 02:00 Temperature Pulse Rate 87 91 H 91 H Respiratory Rate 23 22 22 Blood Pressure 159/76 H 153/75 H Pulse Oximetry 100 100 100 01/15/18 02:03 01/15/18 02:27 01/15/18 02:33 Temperature Pulse Rate 92 H 91 H 87 Respiratory Rate 21 21 19 Blood Pressure 159/75 H 164/78 H 113/58 L Pulse Oximetry 100 100 100 01/15/18 03:00 01/15/18 03:03 01/15/18 03:25 Temperature Pulse Rate 94 H 93 H 96 H Respiratory Rate 29 H 21 24 Blood Pressure 136/72 Pulse Oximetry 100 100 100 01/15/18 03:33 01/15/18 04:00 01/15/18 04:03 Temperature 98.1 F Pulse Rate 98 H 97 H 97 H Respiratory Rate 26 H 23 22 Blood Pressure 130/66 142/72 H Pulse Oximetry 100 100 100 01/15/18 04:33 01/15/18 05:00 01/15/18 05:03 Temperature Pulse Rate 92 H 98 H 98 H Respiratory Rate 22 21 21 Blood Pressure 143/71 H 150/70 H Pulse Oximetry 100 100 100 01/15/18 05:33 01/15/18 06:00 01/15/18 06:03 Temperature Pulse Rate 98 H 96 H 96 H Respiratory Rate 21 22 21 Blood Pressure 140/72 146/74 H Pulse Oximetry 100 100 100 01/15/18 06:33 01/15/18 07:00 01/15/18 07:03 Temperature Pulse Rate 97 H 98 H 97 H Respiratory Rate 23 21 21 Blood Pressure 132/66 135/70 Pulse Oximetry 100 100 100 01/15/18 07:33 01/15/18 07:38 01/15/18 08:00 Temperature Pulse Rate 95 H 100 H Respiratory Rate 22 24 31 H Blood Pressure 127/68 124/66 Pulse Oximetry 100 100 100 01/15/18 08:15 01/15/18 08:30 01/15/18 08:45 Temperature 100.2 F H Pulse Rate 102 H 101 H 109 H Respiratory Rate 31 H 31 H 31 H Blood Pressure 125/68 129/71 103/58 L Pulse Oximetry 99 98 97 01/15/18 09:00 01/15/18 09:15 01/15/18 09:30 Temperature Pulse Rate 108 H 109 H 110 H Respiratory Rate 34 H 32 H 31 H Blood Pressure 103/58 L 98/57 L 100/57 L Pulse Oximetry 97 98 99 01/15/18 09:44 01/15/18 09:45 01/15/18 10:00 Temperature 100.3 F H Pulse Rate 110 H 110 H 110 H Respiratory Rate 26 H 23 22 Blood Pressure 100/57 L 97/60 L 114/64 Pulse Oximetry 100 100 100 01/15/18 10:15 01/15/18 10:30 01/15/18 10:45 Temperature Pulse Rate 109 H 103 H 104 H Respiratory Rate 24 22 23 Blood Pressure 114/62 102/58 L 103/61 Pulse Oximetry 100 100 100 01/15/18 11:00 01/15/18 11:15 01/15/18 11:30 Temperature Pulse Rate 104 H 102 H 100 H Respiratory Rate 19 20 19 Blood Pressure 107/65 109/65 114/68 Pulse Oximetry 100 100 100 01/15/18 11:45 01/15/18 12:00 01/15/18 12:08 Temperature 100.0 F H Pulse Rate 100 H 102 H 108 H Respiratory Rate 22 23 26 H Blood Pressure 114/64 118/64 Pulse Oximetry 100 100 01/15/18 12:09 01/15/18 12:15 Temperature Pulse Rate 108 H Respiratory Rate 31 H 31 H Blood Pressure 115/65 Pulse Oximetry 100 100 Intake & Output 01/14/18 01/15/18 01/15/18 18:59 06:59 18:59 Intake Total 2632.5 / 2632.5 1135 / 1135 615 / 615 Output Total 600 / 600 850 / 850 Balance 2032.5 / 2032.5 285 / 285 615 / 615 Weight 63.4 kg Intake: IV 1572.5 / 1572.5 1135 / 1135 615 / 615 LR 1000 mL Inj 1,000 ML @ 125 700 / 700 mls/hr IV.CONT .Q8H [facility] Rx#: [id number] 1/2 Normal Saline Inj 1,000 ML 0 / 0 35 / 35 465 / 465 @ 70 mls/hr IV.CONT .[id number] [facility] Rx#:[id number] Flexbumin 25% Inj 100 ML @ 60 200 / 200 100 / 100 mls/hr IV.SIG Q6H [facility] Rx#: [id number] LR 1000 mL Inj 1,000 ML @ Wide 1000 / 1000 Open IV.SIG BOLUS ONE Rx#: [id number] Zosyn 3.375 GM Premix 50 ML @ 50 / 50 100 / 100 50 / 50 100 mls/hr IV.SIG Q6H [facility] Rx#: [id number] Potassium Phosphate Inj 30 MMOL 260 / 260 In NS Inj 250 ML @ 43.333 mls/ hr IV.SIG ONCE ONE Rx#:[id number] Vancomycin Inj 1,250 MG In NS 262.5 / 262.5 Inj 250 ML @ 250 mls/hr IV.SIG ONCE ONE Rx#:[id number] Tube Feeding 590 / 590 Tube Irrigant 20 / 20 Water Bolus Amount 450 / 450 Intake (Blood Product) Amt 0 / 0 Rbc As-3 Leukoreduced Unit 0 / 0 [id number] Output: Urine Amount (Catheter) 450 / 450 650 / 650 Indwelling Urethral Catheter 450 / 450 650 / 650 Wound Vac Amount 150 / 150 200 / 200 Posterior Sacrum 150 / 150 Sacrum 200 / 200 Other: Mode Setting Posterior Sacrum Continuous Continuous Continuous Sacrum Continuous Date of Last Bowel Movement 01/14/18 01/14/18 01/15/18 - Routine Extremities Exam Present: edema (vac in place no leak, good sxn) - Urinary Catheter Management Indwelling Urethral Catheter Cath placed during this visit: yes Reason for continuing: Hourly intake/output Insertion date: 01/13/18 Insertion time: 01:00 1 Cath placed during this visit: yes, but has since been removed by the nurse Urethral indwelling: Yes Reason for continuing: Severe pressure ulcer/wound Insertion date: 12/15/17 Removal date: 01/13/18 Removal time: 01:00 Results - Labs 01/15/18 04:45 01/15/18 04:45 Laboratory Results - last 24 hr 12/27/17 01/14/18 01/14/18 05:20 15:43 15:43 WBC RBC Hgb Hct MCV MCH MCHC RDW Plt Count MPV Neut % (Auto) Lymph % (Auto) Lyman % (Auto) Eos % (Auto) Baso % (Auto) Neut # (Auto) Lymph # (Auto) Lyman # (Auto) Eos # (Auto) Baso # (Auto) WBC Differential Differential Comment Puncture Site Patient Temperature O2 Saturation ABG pH ABG pCO2 ABG pO2 ABG HCO3 ABG O2 Content ABG Base Excess ABG Methemoglobin Aroldo Test Hemoglobin Carboxyhemoglobin O2 Delivery Device Liter Flow Vent Setting Inspired O2 Critical Value Sodium Potassium Chloride Carbon Dioxide Anion Gap BUN Creatinine Estimated GFR POC Glucose Random Glucose Lactic Acid 2.1 H Calcium Phosphorus Magnesium Urine Color Urine Clarity Urine pH Ur Specific Arley Urine Protein Urine Glucose (UA) Urine Ketones Urine Occult Blood Urine Nitrate Urine Bilirubin Urine Urobilinogen Ur Leukocyte Esterase Urine RBC Urine WBC Urine WBC Clumps Ur Squamous Epith Cells Urine Bacteria Hyaline Casts Urine Mucus Urine Yeast Micro UA Comment Ur Microscopic Review Urine Culture Comments Blood Type O Negative Antibody Screen Negative MTS Gel Crossmatch See Detail See Detail 01/14/18 01/14/18 01/14/18 15:54 16:00 18:34 WBC RBC Hgb Hct MCV MCH MCHC RDW Plt Count MPV Neut % (Auto) Lymph % (Auto) Lyman % (Auto) Eos % (Auto) Baso % (Auto) Neut # (Auto) Lymph # (Auto) Lyman # (Auto) Eos # (Auto) Baso # (Auto) WBC Differential Differential Comment Puncture Site Patient Temperature O2 Saturation ABG pH ABG pCO2 ABG pO2 ABG HCO3 ABG O2 Content ABG Base Excess ABG Methemoglobin Aroldo Test Hemoglobin Carboxyhemoglobin O2 Delivery Device Liter Flow Vent Setting Inspired O2 Critical Value Sodium Potassium Chloride Carbon Dioxide Anion Gap BUN Creatinine Estimated GFR POC Glucose 159 H 158 H Random Glucose Lactic Acid Calcium Phosphorus Magnesium Urine Color Yellow Urine Clarity Hazy H Urine pH 8.0 Ur Specific Arley 1.015 Urine Protein 500 or greater Urine Glucose (UA) Negative Urine Ketones Negative Urine Occult Blood Small H Urine Nitrate Negative Urine Bilirubin Negative Urine Urobilinogen Less than 2 Ur Leukocyte Esterase Large H Urine RBC 8 H Urine WBC Urine WBC Clumps Few H Ur Squamous Epith Cells 1 Urine Bacteria Few H Hyaline Casts 3 Urine Mucus Few H Urine Yeast Occasional H Micro UA Comment Cath-culture ind Ur Microscopic Review Not Reportable Urine Culture Comments Cath-cult indicated Blood Type Antibody Screen MTS Gel Crossmatch 01/14/18 01/14/18 01/14/18 18:52 18:55 22:02 WBC RBC Hgb Hct MCV MCH MCHC RDW Plt Count MPV Neut % (Auto) Lymph % (Auto) Lyman % (Auto) Eos % (Auto) Baso % (Auto) Neut # (Auto) Lymph # (Auto) Lyman # (Auto) Eos # (Auto) Baso # (Auto) WBC Differential Differential Comment Puncture Site Art line Cancelled Patient Temperature 98.6 Cancelled O2 Saturation 94 Cancelled ABG pH 7.47 H Cancelled ABG pCO2 35 L Cancelled ABG pO2 78 Cancelled ABG HCO3 25 Cancelled ABG O2 Content 9.0 L Cancelled ABG Base Excess 1.5 Cancelled ABG Methemoglobin 1.9 Cancelled Aroldo Test Present Cancelled Hemoglobin 6.8 L* Cancelled Carboxyhemoglobin 1.6 Cancelled O2 Delivery Device Ventilator Cancelled Liter Flow Cancelled Vent Setting Cancelled Inspired O2 50 Cancelled Critical Value Yes Cancelled Sodium Potassium Chloride Carbon Dioxide Anion Gap BUN Creatinine Estimated GFR POC Glucose 191 H Random Glucose Lactic Acid Calcium Phosphorus Magnesium Urine Color Urine Clarity Urine pH Ur Specific Arley Urine Protein Urine Glucose (UA) Urine Ketones Urine Occult Blood Urine Nitrate Urine Bilirubin Urine Urobilinogen Ur Leukocyte Esterase Urine RBC Urine WBC Urine WBC Clumps Ur Squamous Epith Cells Urine Bacteria Hyaline Casts Urine Mucus Urine Yeast Micro UA Comment Ur Microscopic Review Urine Culture Comments Blood Type Antibody Screen MTS Gel Crossmatch 01/15/18 01/15/18 01/15/18 00:41 04:45 04:45 WBC 21.2 H D RBC 2.37 L Hgb 7.2 L Hct 22.3 L MCV 94.3 MCH 30.4 MCHC 32.3 RDW 19.2 H Plt Count 285 D MPV 11.3 H Neut % (Auto) 80.9 H Lymph % (Auto) 13.2 Lyman % (Auto) 4.6 Eos % (Auto) 0.4 Baso % (Auto) 0.9 Neut # (Auto) 17.1 H Lymph # (Auto) 2.8 Lyman # (Auto) 1.0 H Eos # (Auto) 0.1 Baso # (Auto) 0.2 WBC Differential . Differential Comment Auto diff final Puncture Site Patient Temperature O2 Saturation ABG pH ABG pCO2 ABG pO2 ABG HCO3 ABG O2 Content ABG Base Excess ABG Methemoglobin Aroldo Test Hemoglobin Carboxyhemoglobin O2 Delivery Device Liter Flow Vent Setting Inspired O2 Critical Value Sodium 151 H Potassium 4.0 Chloride 118 H Carbon Dioxide 24.7 Anion Gap 8 BUN 72 H Creatinine 1.48 H Estimated GFR 37 L POC Glucose 182 H Random Glucose 213 H Lactic Acid Calcium 8.3 L D Phosphorus 1.0 L Magnesium 2.5 Urine Color Urine Clarity Urine pH Ur Specific Arley Urine Protein Urine Glucose (UA) Urine Ketones Urine Occult Blood Urine Nitrate Urine Bilirubin Urine Urobilinogen Ur Leukocyte Esterase Urine RBC Urine WBC Urine WBC Clumps Ur Squamous Epith Cells Urine Bacteria Hyaline Casts Urine Mucus Urine Yeast Micro UA Comment Ur Microscopic Review Urine Culture Comments Blood Type Antibody Screen MTS Gel Crossmatch 01/15/18 01/15/18 09:16 11:52 WBC RBC Hgb Hct MCV MCH MCHC RDW Plt Count MPV Neut % (Auto) Lymph % (Auto) Lyman % (Auto) Eos % (Auto) Baso % (Auto) Neut # (Auto) Lymph # (Auto) Lyman # (Auto) Eos # (Auto) Baso # (Auto) WBC Differential Differential Comment Puncture Site Patient Temperature O2 Saturation ABG pH ABG pCO2 ABG pO2 ABG HCO3 ABG O2 Content ABG Base Excess ABG Methemoglobin Aroldo Test Hemoglobin Carboxyhemoglobin O2 Delivery Device Liter Flow Vent Setting Inspired O2 Critical Value Sodium Potassium Chloride Carbon Dioxide Anion Gap BUN Creatinine Estimated GFR POC Glucose 265 H 290 H Random Glucose Lactic Acid Calcium Phosphorus Magnesium Urine Color Urine Clarity Urine pH Ur Specific Arley Urine Protein Urine Glucose (UA) Urine Ketones Urine Occult Blood Urine Nitrate Urine Bilirubin Urine Urobilinogen Ur Leukocyte Esterase Urine RBC Urine WBC Urine WBC Clumps Ur Squamous Epith Cells Urine Bacteria Hyaline Casts Urine Mucus Urine Yeast Micro UA Comment Ur Microscopic Review Urine Culture Comments Blood Type Antibody Screen MTS Gel Crossmatch - Imaging Imaging: ITS Impressions Femur X-Ray 12/15/17 07:05 CONCLUSION: No fracture is identified. There is extensive soft tissue air in the right gluteal region and extending into the proximal and mid posterior thigh. The soft tissue air suggests an open wound. Pelvis X-Ray 12/15/17 07:05 CONCLUSION: No fracture is identified. However, there is extensive soft tissue air in the left gluteal region and left proximal thigh. Pelvis CT 12/15/17 07:52 CONCLUSION: 1. No fracture is identified. 2. Extensive subcutaneous and soft tissue gas bilaterally, left greater than right. It is most severe in the left gluteal region and extends into the proximal posterior thigh. The soft tissue air dissects through the gluteal musculature. There is adjacent subcutaneous edema. Foot X-Ray 12/18/17 00:00 CONCLUSION: Remote small avulsion fracture at the fifth toe. No acute bony abnormality. Venous Doppler Study 12/22/17 00:00 CONCLUSION: Extensive deep vein thrombosis of the left upper extremity. Abdomen X-Ray 01/08/18 00:08 CONCLUSION: Feeding tube tip is in the region of the distal stomach Chest X-Ray 01/14/18 00:00 CONCLUSION: 1. Tubes and lines, as above. 2. Slight improved aeration of the lower lung zones with persistent mild patchy airspace disease and probable trace left pleural effusion. Assessment and Plan - Assessment (1) Fasciitis Code(s): M72.9 - Fibroblastic disorder, unspecified Status: Acute - Plan nec fasc of back, buttock, multiple debridements recent transfer to ic[facility] due to sepsis off pressors PLAN Tube feeds vac change likely sunday, pt may need colostomy soon continue abx per ID isc transfuse for anemia of blood loss
--- NOTE | 2018-01-15 14:52 | P.PNID ---
Subjective Remarks: Patient transferred to [facility] with respiratory distress, fever and altered mental status. Lethargic. Barely opens eyes to voice. On T-piece. Low grade fever. WBC elevated. Post multiple debridement and wound vac change. Patient was brought to the emergency department after she fell at home. She underwent CT scan of the abdomen and pelvis that showed extensive subcutaneous and soft tissue gas bilaterally with the left greater than right, most severe in the left gluteal region and extending into the proximal posterior thigh soft tissue and air-fluid dissecting through the gluteal musculature. Allergies/Adverse Reactions: Allergies No Known Allergies Allergy (Verified 12/15/17 07:54) Objective Vital Signs 01/14/18 15:44 01/14/18 16:15 01/14/18 16:30 Temperature 102.5 F H Pulse Rate 127 H 120 H 121 H Respiratory Rate 45 H 24 24 Blood Pressure 111/60 113/61 Pulse Oximetry 96 100 01/14/18 16:45 01/14/18 17:00 01/14/18 18:14 Temperature 98.6 F Pulse Rate 121 H 112 H Respiratory Rate 24 24 14 Blood Pressure 114/63 116/64 86/51 L Pulse Oximetry 97 93 L 100 01/14/18 18:22 01/14/18 18:23 01/14/18 18:25 Temperature Pulse Rate 109 H 107 H Respiratory Rate 20 14 14 Blood Pressure 76/53 L 76/52 L Pulse Oximetry 100 98 97 01/14/18 18:28 01/14/18 18:30 01/14/18 18:35 Temperature Pulse Rate 107 H 106 H 104 H Respiratory Rate 14 14 14 Blood Pressure 81/53 L 84/52 L 86/50 L Pulse Oximetry 98 98 97 01/14/18 18:40 01/14/18 18:45 01/14/18 18:50 Temperature Pulse Rate 104 H 104 H 104 H Respiratory Rate 14 14 14 Blood Pressure 84/53 L 86/51 L 89/55 L Pulse Oximetry 97 100 100 01/14/18 18:55 01/14/18 19:00 01/14/18 19:10 Temperature Pulse Rate 102 H 101 H Respiratory Rate 14 14 Blood Pressure 92/54 L 93/55 L Pulse Oximetry 100 100 100 01/14/18 19:15 01/14/18 19:20 01/14/18 20:00 Temperature 99.3 F 99.1 F Pulse Rate 100 H 101 H 100 H Respiratory Rate 14 22 21 Blood Pressure 113/57 L 95/70 L Pulse Oximetry 100 100 100 01/14/18 20:01 01/14/18 20:31 01/14/18 21:00 Temperature Pulse Rate 101 H 97 H 100 H Respiratory Rate 21 21 20 Blood Pressure 133/63 137/72 Pulse Oximetry 100 100 100 01/14/18 21:01 01/14/18 21:28 01/14/18 21:29 Temperature Pulse Rate 100 H 100 H Respiratory Rate 21 21 Blood Pressure 142/70 H 156/77 H 160/79 H Pulse Oximetry 100 100 01/14/18 21:30 01/14/18 21:31 01/14/18 21:32 Temperature Pulse Rate 100 H 99 H Respiratory Rate 22 21 Blood Pressure 158/76 H 163/77 H 156/74 H Pulse Oximetry 100 100 01/14/18 21:33 01/14/18 22:00 01/14/18 22:03 Temperature Pulse Rate 99 H 96 H 99 H Respiratory Rate 22 20 22 Blood Pressure 159/76 H 153/73 H Pulse Oximetry 100 100 100 01/14/18 22:33 01/14/18 23:00 01/14/18 23:03 Temperature Pulse Rate 91 H 86 86 Respiratory Rate 19 19 18 Blood Pressure 154/73 H 153/70 H Pulse Oximetry 100 100 100 01/14/18 23:33 01/14/18 23:46 01/15/18 00:00 Temperature 100.0 F H Pulse Rate 88 90 90 Respiratory Rate 20 23 22 Blood Pressure 151/75 H Pulse Oximetry 100 97 100 01/15/18 00:03 01/15/18 00:33 01/15/18 01:00 Temperature Pulse Rate 90 92 H 87 Respiratory Rate 23 26 H 23 Blood Pressure 150/73 H 153/73 H Pulse Oximetry 100 88 L 100 01/15/18 01:03 01/15/18 01:33 01/15/18 02:00 Temperature Pulse Rate 87 91 H 91 H Respiratory Rate 23 22 22 Blood Pressure 159/76 H 153/75 H Pulse Oximetry 100 100 100 01/15/18 02:03 01/15/18 02:27 01/15/18 02:33 Temperature Pulse Rate 92 H 91 H 87 Respiratory Rate 21 21 19 Blood Pressure 159/75 H 164/78 H 113/58 L Pulse Oximetry 100 100 100 01/15/18 03:00 01/15/18 03:03 01/15/18 03:25 Temperature Pulse Rate 94 H 93 H 96 H Respiratory Rate 29 H 21 24 Blood Pressure 136/72 Pulse Oximetry 100 100 100 01/15/18 03:33 01/15/18 04:00 01/15/18 04:03 Temperature 98.1 F Pulse Rate 98 H 97 H 97 H Respiratory Rate 26 H 23 22 Blood Pressure 130/66 142/72 H Pulse Oximetry 100 100 100 01/15/18 04:33 01/15/18 05:00 01/15/18 05:03 Temperature Pulse Rate 92 H 98 H 98 H Respiratory Rate 22 21 21 Blood Pressure 143/71 H 150/70 H Pulse Oximetry 100 100 100 01/15/18 05:33 01/15/18 06:00 01/15/18 06:03 Temperature Pulse Rate 98 H 96 H 96 H Respiratory Rate 21 22 21 Blood Pressure 140/72 146/74 H Pulse Oximetry 100 100 100 01/15/18 06:33 01/15/18 07:00 01/15/18 07:03 Temperature Pulse Rate 97 H 98 H 97 H Respiratory Rate 23 21 21 Blood Pressure 132/66 135/70 Pulse Oximetry 100 100 100 01/15/18 07:33 01/15/18 07:38 01/15/18 08:00 Temperature Pulse Rate 95 H 100 H Respiratory Rate 22 24 31 H Blood Pressure 127/68 124/66 Pulse Oximetry 100 100 100 01/15/18 08:15 01/15/18 08:30 01/15/18 08:45 Temperature 100.2 F H Pulse Rate 102 H 101 H 109 H Respiratory Rate 31 H 31 H 31 H Blood Pressure 125/68 129/71 103/58 L Pulse Oximetry 99 98 97 01/15/18 09:00 01/15/18 09:15 01/15/18 09:30 Temperature Pulse Rate 108 H 109 H 110 H Respiratory Rate 34 H 32 H 31 H Blood Pressure 103/58 L 98/57 L 100/57 L Pulse Oximetry 97 98 99 01/15/18 09:44 01/15/18 09:45 01/15/18 10:00 Temperature 100.3 F H Pulse Rate 110 H 110 H 110 H Respiratory Rate 26 H 23 22 Blood Pressure 100/57 L 97/60 L 114/64 Pulse Oximetry 100 100 100 01/15/18 10:15 01/15/18 10:30 01/15/18 10:45 Temperature Pulse Rate 109 H 103 H 104 H Respiratory Rate 24 22 23 Blood Pressure 114/62 102/58 L 103/61 Pulse Oximetry 100 100 100 01/15/18 11:00 01/15/18 11:15 01/15/18 11:30 Temperature Pulse Rate 104 H 102 H 100 H Respiratory Rate 19 20 19 Blood Pressure 107/65 109/65 114/68 Pulse Oximetry 100 100 100 01/15/18 11:45 01/15/18 12:00 01/15/18 12:08 Temperature 100.0 F H Pulse Rate 100 H 102 H 108 H Respiratory Rate 22 23 26 H Blood Pressure 114/64 118/64 Pulse Oximetry 100 100 01/15/18 12:09 01/15/18 12:15 Temperature Pulse Rate 108 H Respiratory Rate 31 H 31 H Blood Pressure 115/65 Pulse Oximetry 100 100 Intake & Output 01/14/18 01/15/18 01/15/18 18:59 06:59 18:59 Intake Total 2632.5 / 2632.5 1135 / 1135 615 / 615 Output Total 600 / 600 850 / 850 Balance 2032.5 / 2032.5 285 / 285 615 / 615 Weight 63.4 kg Intake: IV 1572.5 / 1572.5 1135 / 1135 615 / 615 LR 1000 mL Inj 1,000 ML @ 125 700 / 700 mls/hr IV.CONT .Q8H RICARDO Rx#: [id number] 1/2 Normal Saline Inj 1,000 ML 0 / 0 35 / 35 465 / 465 @ 70 mls/hr IV.CONT .[id number] RICARDO Rx#:[id number] Flexbumin 25% Inj 100 ML @ 60 200 / 200 100 / 100 mls/hr IV.SIG Q6H RICARDO Rx#: [id number] LR 1000 mL Inj 1,000 ML @ Wide 1000 / 1000 Open IV.SIG BOLUS ONE Rx#: [id number] Zosyn 3.375 GM Premix 50 ML @ 50 / 50 100 / 100 50 / 50 100 mls/hr IV.SIG Q6H RICARDO Rx#: [id number] Potassium Phosphate Inj 30 MMOL 260 / 260 In NS Inj 250 ML @ 43.333 mls/ hr IV.SIG ONCE ONE Rx#:[id number] Vancomycin Inj 1,250 MG In NS 262.5 / 262.5 Inj 250 ML @ 250 mls/hr IV.SIG ONCE ONE Rx#:[id number] Tube Feeding 590 / 590 Tube Irrigant 20 / 20 Water Bolus Amount 450 / 450 Intake (Blood Product) Amt 0 / 0 Rbc As-3 Leukoreduced Unit 0 / 0 [id number] Output: Urine Amount (Catheter) 450 / 450 650 / 650 Indwelling Urethral Catheter 450 / 450 650 / 650 Wound Vac Amount 150 / 150 200 / 200 Posterior Sacrum 150 / 150 Sacrum 200 / 200 Other: Mode Setting Posterior Sacrum Continuous Continuous Continuous Sacrum Continuous Date of Last Bowel Movement 01/14/18 01/14/18 01/15/18 12/24/17 12:20 Tissue - Buttock Acid Fast Bacilli Smear - Final No acid fast bacilli seen 12/24/17 12:20 Tissue - Buttock Mycobacterial Culture - Preliminary No growth in 3 weeks 01/14/18 10:30 Blood - Peripheral Aerobic Blood Culture - Preliminary No growth in 1 day 01/14/18 10:30 Blood - Peripheral Anaerobic Blood Culture - Preliminary No growth in 1 day 01/14/18 10:35 Blood - Peripheral Aerobic Blood Culture - Preliminary No growth in 1 day 01/14/18 10:35 Blood - Peripheral Anaerobic Blood Culture - Preliminary No growth in 1 day 01/14/18 09:24 Sputum - Endotracheal Gram Stain - Final 01/14/18 09:24 Sputum - Endotracheal Sputum Culture - Pending 01/14/18 16:00 Catheterized Urine Urine Culture - Pending 12/24/17 12:20 Tissue - Buttock Fungal Smear - Final Rare budding yeast 12/24/17 12:20 Tissue - Buttock Fungal Culture - Final Talia albicans Talia tropicalis Lab - Hematology Results 01/14/18 01/15/18 07:05 04:45 WBC 13.3 H 21.2 H D RBC 2.31 L 2.37 L Hgb 7.1 L 7.2 L Hct 22.1 L 22.3 L MCV 95.7 94.3 MCH 30.7 30.4 MCHC 32.1 32.3 RDW 19.6 H 19.2 H Plt Count 214 285 D MPV 11.2 H 11.3 H Neut % (Auto) 73.0 H 80.9 H Lymph % (Auto) 19.5 13.2 [place] % (Auto) 5.8 4.6 Eos % (Auto) 1.1 0.4 Baso % (Auto) 0.6 0.9 Neut # (Auto) 9.7 H 17.1 H Lymph # (Auto) 2.6 2.8 [place] # (Auto) 0.8 1.0 H Eos # (Auto) 0.1 0.1 Baso # (Auto) 0.1 0.2 WBC Differential . . Differential Comment Auto diff final Auto diff final Lab - Chemistry Results 01/13/18 01/13/18 01/14/18 16:40 19:39 00:01 Sodium Potassium Chloride Carbon Dioxide Anion Gap BUN Creatinine Estimated GFR POC Glucose 201 H 163 H 184 H Random Glucose Lactic Acid Calcium Phosphorus Magnesium Total Creatine Kinase Albumin Amylase Lipase 01/14/18 01/14/18 01/14/18 04:28 07:05 07:57 Sodium 157 H* Potassium 4.7 Chloride 122 H Carbon Dioxide 28.6 Anion Gap 6 BUN 73 H Creatinine 1.31 H Estimated GFR 42 L POC Glucose 193 H 207 H Random Glucose 186 H Lactic Acid Calcium 9.4 Phosphorus 0.1 L Magnesium Total Creatine Kinase Albumin 5.2 H Amylase Lipase 01/14/18 01/14/18 01/14/18 09:20 11:32 11:32 Sodium Potassium Chloride Carbon Dioxide Anion Gap BUN Creatinine Estimated GFR POC Glucose 237 H Random Glucose Lactic Acid 2.3 H Calcium Phosphorus Magnesium Total Creatine Kinase Albumin Amylase 49 Lipase 01/14/18 01/14/18 01/14/18 11:32 11:44 15:43 Sodium Potassium Chloride Carbon Dioxide Anion Gap BUN Creatinine Estimated GFR POC Glucose 190 H Random Glucose Lactic Acid 2.1 H Calcium Phosphorus Magnesium Total Creatine Kinase 39 Albumin Amylase Lipase 55 L 01/14/18 01/14/18 01/14/18 15:54 18:34 22:02 Sodium Potassium Chloride Carbon Dioxide Anion Gap BUN Creatinine Estimated GFR POC Glucose 159 H 158 H 191 H Random Glucose Lactic Acid Calcium Phosphorus Magnesium Total Creatine Kinase Albumin Amylase Lipase 01/15/18 01/15/18 01/15/18 00:41 04:45 09:16 Sodium 151 H Potassium 4.0 Chloride 118 H Carbon Dioxide 24.7 Anion Gap 8 BUN 72 H Creatinine 1.48 H Estimated GFR 37 L POC Glucose 182 H 265 H Random Glucose 213 H Lactic Acid Calcium 8.3 L D Phosphorus 1.0 L Magnesium 2.5 Total Creatine Kinase Albumin Amylase Lipase 01/15/18 11:52 Sodium Potassium Chloride Carbon Dioxide Anion Gap BUN Creatinine Estimated GFR POC Glucose 290 H Random Glucose Lactic Acid Calcium Phosphorus Magnesium Total Creatine Kinase Albumin Amylase Lipase Imaging: ITS Impressions Femur X-Ray 12/15/17 07:05 CONCLUSION: No fracture is identified. There is extensive soft tissue air in the right gluteal region and extending into the proximal and mid posterior thigh. The soft tissue air suggests an open wound. Pelvis X-Ray 12/15/17 07:05 CONCLUSION: No fracture is identified. However, there is extensive soft tissue air in the left gluteal region and left proximal thigh. Pelvis CT 12/15/17 07:52 CONCLUSION: 1. No fracture is identified. 2. Extensive subcutaneous and soft tissue gas bilaterally, left greater than right. It is most severe in the left gluteal region and extends into the proximal posterior thigh. The soft tissue air dissects through the gluteal musculature. There is adjacent subcutaneous edema. Foot X-Ray 12/18/17 00:00 CONCLUSION: Remote small avulsion fracture at the fifth toe. No acute bony abnormality. Venous Doppler Study 12/22/17 00:00 CONCLUSION: Extensive deep vein thrombosis of the left upper extremity. Abdomen X-Ray 01/08/18 00:08 CONCLUSION: Feeding tube tip is in the region of the distal stomach Chest X-Ray 01/14/18 00:00 CONCLUSION: 1. Tubes and lines, as above. 2. Slight improved aeration of the lower lung zones with persistent mild patchy airspace disease and probable trace left pleural effusion. Physical Exam: PHYSICAL EXAMINATION: GENERAL: Nonresponsive. HEENT: No icterus. Pale sclera. NECK: Supple. No adenopathy or swelling. LUNGS: Scattered rhonchi. HEART: irregular S1 and S2. 1-2/6 systolic murmur at the left sternal border. ABDOMEN: Bowel sounds present, soft. BACK: Surgical wound post debridement across the lower back, buttock and thigh. Vac in place. EXTREMITIES: No clubbing, no cyanosis. Trace edema at upper extremities. abrasion with dry necrotic changes at left dorsal toes 2-4. SKIN: No diffuse rash. Scattered ecchymotic lesions. NEUROLOGIC: Unable to assess. PSYCHIATRIC: Unable to assess. Assessment and Plan - Plan IMPRESSION: 1. Necrotizing fasciitis of the back, buttock and thigh. Talia albicans and Talia tropicalis. 2. Septic shock. Responded to broad-spectrum antibiotics. 3. Acute respiratory failure. 4. Chronic kidney disease. 5. Leukocytosis. Improved. 6. New fever. 7. New episode of sepsis. 8. Probable aspiration. RECOMMENDATIONS: 1. Continue Diflucan. 2. Continue Flagyl p.o. empiric anaerobic coverage. 3. Continue vancomycin. 4. Continue Zosyn. 5. Follow cultures.
--- NOTE | 2018-01-15 15:15 | P.DIET ---
Nutritional Evaluation Type of nutrition evaluation: follow-up Nutrition consult regarding: Tube Feeding Subjective Subjective Comments: Found down at home. 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%) % IBW: 122 (IBW = 123-lb (adjusted for amp)) Body Weight Used for Calculations: Actual (64.9 kg) Energy Needs - Lower Range (kCal/kg): 30 Energy Needs - Upper Range (kCal/kg): 35 Lower Limit kCal/kg (kCals): 1,947 Upper Limit kCal/kg (kCals): 2,272 Lower Limit Protein Factor (Grams per Kg): 1.2 Upper Limit Protein Factor (Grams per Kg): 1.6 Lower Protein Needs (Protein): 78 Upper Protein Needs (Protein): 104 Dietitian Reviewed in Medical Record: Curent medications, Intake & Output, Labs , Medical history, Tube feeding, Wound/DTI Diet Order: NPO Objective Comments: PMH includes: Hep C, DM, PAD, HTN, Osteomyelitis, R AKA, GERD, gastroparesis, PVD, peripheral neuropathy Decubitus Ulcer; here w/Stage IV sacral decubitus s/p debridement of Necrotizing tissue Fasciitis 01/08/19: Necrotizing Fasciitis of pelvic region and thigh w/ I & D, wound vac change, partial closure Assessment Assessment: Pt continues at high nutrition risk r/t increased needs for wound healing, clinical status and need for TFing. Pt has had multiple trips to the OR for debridement and wound vac changes, requiring TFing to be placed on hold. Recommend Glucerna 1.5 @ 60 ml/hr to provide 2160 kcal, 119g protein and 1093ml free water. Continue Alek 1-pkt BID to aid in wound healing. Labs, wts and clinical course reviewed. Pt remains critically ill. Recommendations: Glucerna 1.5 @ 60 mls/hr goal Alek 1 pack bid Dietitian to Monitor: Lab values, Glucose level, Intake & Output, Tube feeding tolerance, Weight change, Wound/skin status, Medical course
[2018-01-15] MEDS: Sodium Chloride 23.4% Inj 38.5 MEQ in Water for Inj, Sterile 1,000 ML IV.CONT SCH (15:40)
[2018-01-15] MEDS: Acetaminophen 325 MG Tablet NG/OG SCH (16:38)
--- NOTE | 2018-01-15 16:46 | P.PNPAL ---
Reason for Visit Reason for visit: a. To assist with evaluation and management of symptoms including: fever, dyspnea, debility b. To assist medical decision maker(s) with: better understanding of current medical conditions; weighing benefits/burdens of medical treatment options; making medical treatment decisions. Subjective Subjective/Interval History: patient was transferred to intensive care unit 01/14 after Dk was called for probable sepsis. Patient was febrile with temp 103, tachypneic with RR 30- 40, hypoxic on FiO2 80% via t-piece. Notes indicate a change in mental status, was previously minimally responsive now unresponsive. Now back on vent (prev. trach) She has remained stable in ICU. Did not tolerate CPAP today, tachypnea/ tachycardia per nursing. Repeat BC no growth x1 day, urine= +pseudomonas. WBC cont to increase 21.2, H&H down 7.2/22.3; transfused RBC per gen surgery. BUN 72/creat 1.48. UOP adequate. Surg indicates poss diverting colostomy soon. Patient seen and examined in ICU, dual visit w Lilly GOLDSTEIN. No family at bedside. d/w nurse She is alert, nods to questions. Nods no to pain. Nods no to shortness of breath. attempts to mouth words though is difficult to understand. Briefly explore back in ICU for concern of sepsis. Review concern from ongoing wound infection. She is flat . Mention that GS has indicated poss diverting colostomy , she strongly shakes head no. Explore that might be one of the few ways to prevent recurrent infection from her severe wounds/stool. She again strongly nods no. Attempt to explore that she remains very sick despite multiple procedures, ask if she would not want any thing else done, to just be comfortable. She does not nod yes or no. Advise would call her to update. call to # after exam, VM left. Advance Directives Living Will: Never completed Health Care Surrogate: Never completed Health Care Surrogate Name and Number: HCP Tyrone Middleton Documented care wishes:: No known documented care wishes have been completed Objective Vital Signs: Vital Signs 01/14/18 16:30 01/14/18 16:45 01/14/18 17:00 Temperature Pulse Rate 121 H 121 H Respiratory Rate 24 24 24 Blood Pressure 113/61 114/63 116/64 Pulse Oximetry 100 97 93 L 11/26/18 18:14 01/14/18 18:22 01/14/18 18:23 Temperature 98.6 F Pulse Rate 112 H 109 H Respiratory Rate 14 20 14 Blood Pressure 86/51 L 76/53 L Pulse Oximetry 100 100 98 01/14/18 18:25 01/14/18 18:28 01/14/18 18:30 Temperature Pulse Rate 107 H 107 H 106 H Respiratory Rate 14 14 14 Blood Pressure 76/52 L 81/53 L 84/52 L Pulse Oximetry 97 98 98 01/14/18 18:35 01/14/18 18:40 01/14/18 18:45 Temperature Pulse Rate 104 H 104 H 104 H Respiratory Rate 14 14 14 Blood Pressure 86/50 L 84/53 L 86/51 L Pulse Oximetry 97 97 100 01/14/18 18:50 01/14/18 18:55 01/14/18 19:00 Temperature Pulse Rate 104 H 102 H 101 H Respiratory Rate 14 14 14 Blood Pressure 89/55 L 92/54 L 93/55 L Pulse Oximetry 100 100 100 01/14/18 19:10 01/14/18 19:15 01/14/18 19:20 Temperature 99.3 F Pulse Rate 100 H 101 H Respiratory Rate 14 22 Blood Pressure 113/57 L 95/70 L Pulse Oximetry 100 100 100 01/14/18 20:00 01/14/18 20:01 01/14/18 20:31 Temperature 99.1 F Pulse Rate 100 H 101 H 97 H Respiratory Rate 21 21 21 Blood Pressure 133/63 137/72 Pulse Oximetry 100 100 100 01/14/18 21:00 01/14/18 21:01 01/14/18 21:28 Temperature Pulse Rate 100 H 100 H 100 H Respiratory Rate 20 21 21 Blood Pressure 142/70 H 156/77 H Pulse Oximetry 100 100 100 01/14/18 21:29 01/14/18 21:30 01/14/18 21:31 Temperature Pulse Rate 100 H 99 H Respiratory Rate 22 21 Blood Pressure 160/79 H 158/76 H 163/77 H Pulse Oximetry 100 100 01/14/18 21:32 01/14/18 21:33 01/14/18 22:00 Temperature Pulse Rate 99 H 96 H Respiratory Rate 22 20 Blood Pressure 156/74 H 159/76 H Pulse Oximetry 100 100 01/14/18 22:03 01/14/18 22:33 01/14/18 23:00 Temperature Pulse Rate 99 H 91 H 86 Respiratory Rate 22 19 19 Blood Pressure 153/73 H 154/73 H Pulse Oximetry 100 100 100 01/14/18 23:03 01/14/18 23:33 01/14/18 23:46 Temperature Pulse Rate 86 88 90 Respiratory Rate 18 20 23 Blood Pressure 153/70 H 151/75 H Pulse Oximetry 100 100 97 01/15/18 00:00 01/15/18 00:03 01/15/18 00:33 Temperature 100.0 F H Pulse Rate 90 90 92 H Respiratory Rate 22 23 26 H Blood Pressure 150/73 H 153/73 H Pulse Oximetry 100 100 88 L 01/15/18 01:00 01/15/18 01:03 01/15/18 01:33 Temperature Pulse Rate 87 87 91 H Respiratory Rate 23 23 22 Blood Pressure 159/76 H 153/75 H Pulse Oximetry 100 100 100 01/15/18 02:00 01/15/18 02:03 01/15/18 02:27 Temperature Pulse Rate 91 H 92 H 91 H Respiratory Rate 22 21 21 Blood Pressure 159/75 H 164/78 H Pulse Oximetry 100 100 100 01/15/18 02:33 01/15/18 03:00 01/15/18 03:03 Temperature Pulse Rate 87 94 H 93 H Respiratory Rate 19 29 H 21 Blood Pressure 113/58 L 136/72 Pulse Oximetry 100 100 100 01/15/18 03:25 01/15/18 03:33 01/15/18 04:00 Temperature 98.1 F Pulse Rate 96 H 98 H 97 H Respiratory Rate 24 26 H 23 Blood Pressure 130/66 Pulse Oximetry 100 100 100 01/15/18 04:03 01/15/18 04:33 01/15/18 05:00 Temperature Pulse Rate 97 H 92 H 98 H Respiratory Rate 22 22 21 Blood Pressure 142/72 H 143/71 H Pulse Oximetry 100 100 100 01/15/18 05:03 01/15/18 05:33 01/15/18 06:00 Temperature Pulse Rate 98 H 98 H 96 H Respiratory Rate 21 21 22 Blood Pressure 150/70 H 140/72 Pulse Oximetry 100 100 100 01/15/18 06:03 01/15/18 06:33 01/15/18 07:00 Temperature Pulse Rate 96 H 97 H 98 H Respiratory Rate 21 23 21 Blood Pressure 146/74 H 132/66 Pulse Oximetry 100 100 100 01/15/18 07:03 01/15/18 07:33 01/15/18 07:38 Temperature Pulse Rate 97 H 95 H Respiratory Rate 21 22 24 Blood Pressure 135/70 127/68 Pulse Oximetry 100 100 100 01/15/18 08:00 01/15/18 08:15 01/15/18 08:30 Temperature 100.2 F H Pulse Rate 100 H 102 H 101 H Respiratory Rate 31 H 31 H 31 H Blood Pressure 124/66 125/68 129/71 Pulse Oximetry 100 99 98 01/15/18 08:45 01/15/18 09:00 01/15/18 09:15 Temperature Pulse Rate 109 H 108 H 109 H Respiratory Rate 31 H 34 H 32 H Blood Pressure 103/58 L 103/58 L 98/57 L Pulse Oximetry 97 97 98 01/15/18 09:30 01/15/18 09:44 01/15/18 09:45 Temperature 100.3 F H Pulse Rate 110 H 110 H 110 H Respiratory Rate 31 H 26 H 23 Blood Pressure 100/57 L 100/57 L 97/60 L Pulse Oximetry 99 100 100 01/15/18 10:00 01/15/18 10:15 01/15/18 10:30 Temperature Pulse Rate 110 H 109 H 103 H Respiratory Rate 22 24 22 Blood Pressure 114/64 114/62 102/58 L Pulse Oximetry 100 100 100 01/15/18 10:45 01/15/18 11:00 01/15/18 11:15 Temperature Pulse Rate 104 H 104 H 102 H Respiratory Rate 23 19 20 Blood Pressure 103/61 107/65 109/65 Pulse Oximetry 100 100 100 01/15/18 11:30 01/15/18 11:45 01/15/18 12:00 Temperature 100.0 F H Pulse Rate 100 H 100 H 102 H Respiratory Rate 19 22 23 Blood Pressure 114/68 114/64 118/64 Pulse Oximetry 100 100 100 01/15/18 12:08 01/15/18 12:09 01/15/18 12:15 Temperature Pulse Rate 108 H 108 H Respiratory Rate 26 H 31 H 31 H Blood Pressure 115/65 Pulse Oximetry 100 100 01/15/18 15:13 01/15/18 15:14 Temperature Pulse Rate 108 H Respiratory Rate 24 25 H Blood Pressure Pulse Oximetry 100 Intake & Output 01/14/18 01/15/18 01/15/18 18:59 06:59 18:59 Intake Total 2632.5 / 2632.5 1135 / 1135 1327.5 / 1327.5 Output Total 600 / 600 850 / 850 Balance 2032.5 / 2032.5 285 / 285 1327.5 / 1327.5 Weight 63.4 kg Intake: IV 1572.5 / 1572.5 1135 / 1135 927.5 / 927.5 LR 1000 mL Inj 1,000 ML @ 125 700 / 700 mls/hr IV.CONT .Q8H [facility] Rx#: [id number] 1/2 Normal Saline Inj 1,000 ML 0 / 0 35 / 35 465 / 465 @ 70 mls/hr IV.CONT .[id number] [facility] Rx#:[id number] Flexbumin 25% Inj 100 ML @ 60 200 / 200 100 / 100 mls/hr IV.SIG Q6H [facility] Rx#: [id number] LR 1000 mL Inj 1,000 ML @ Wide 1000 / 1000 Open IV.SIG BOLUS ONE Rx#: [id number] Zosyn 3.375 GM Premix 50 ML @ 50 / 50 100 / 100 100 / 100 100 mls/hr IV.SIG Q6H [facility] Rx#: [id number] Potassium Phosphate Inj 30 MMOL 260 / 260 In NS Inj 250 ML @ 43.333 mls/ hr IV.SIG ONCE ONE Rx#:[id number] Vancomycin Inj 1,250 MG In NS 262.5 / 262.5 262.5 / 262.5 Inj 250 ML @ 250 mls/hr IV.SIG Q24H [facility] Rx#:[id number] Tube Feeding 590 / 590 Tube Irrigant 20 / 20 Water Bolus Amount 450 / 450 Intake (Blood Product) Amt 400 / 400 Rbc As-3 Leukoreduced Unit 400 / 400 [id number] Output: Urine Amount (Catheter) 450 / 450 650 / 650 Indwelling Urethral Catheter 450 / 450 650 / 650 Wound Vac Amount 150 / 150 200 / 200 Posterior Sacrum 150 / 150 Sacrum 200 / 200 Other: Mode Setting Posterior Sacrum Continuous Continuous Continuous Sacrum Continuous Date of Last Bowel Movement 01/14/18 01/14/18 01/15/18 Physical Exam: CONSTITUTIONAL/GENERAL: This is a chronically ill appearing female who looks older than her stated age. TUBES/LINES/DRAINS: Tracheostomy, SCDs, PIV, wound VAC. SKIN: Very pale. Abrasion on left forehead. Scattered ecchymosis to upper extremities. Wound VAC in place over lower lumbar region with blood-tinged drainage in VAC canister. Skin warm/dry, flaky/scaling in places HEAD: Atraumatic. Normocephalic. EYES: Pupils equal and round, reactive. No scleral icterus. No injection or drainage. ENT: Nose without bleeding or purulent drainage. Moist oral mucosa. CARDIOVASCULAR: Regular rate and rhythm. periph pulses palpable. Trace edema bilat hands, R>L. 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 Lungs w scattered rhonchi. GASTROINTESTINAL: Abdomen soft, non-tender, nondistended. No guarding. Bowel sounds hypoactive, dobhoff NG in place, clamped GENITOURINARY: Without palpable bladder distension. MUSCULOSKELETAL: Status post right BKA. Left foot cool to touch; dressing to foot. Post tib pulse palpable NEUROLOGICAL: Awake, nods to yes/no questions. Appears partially oriented. Mouths at times, difficult to understand. following simple commands. PSYCHIATRIC: Calm/flat Diagnostic Tests Laboratory: Laboratory Results - last 72 hr 12/27/17 01/12/18 01/12/18 05:20 16:42 19:58 WBC RBC Hgb Hct MCV MCH MCHC RDW Plt Count MPV Neut % (Auto) Lymph % (Auto) Wood % (Auto) Eos % (Auto) Baso % (Auto) Neut # (Auto) Lymph # (Auto) Wood # (Auto) Eos # (Auto) Baso # (Auto) WBC Differential Differential Comment Puncture Site Patient Temperature O2 Saturation ABG pH ABG pCO2 ABG pO2 ABG HCO3 ABG O2 Content ABG Base Excess ABG Methemoglobin Aro[place]o Test Hemoglobin Carboxyhemoglobin O2 Delivery Device Liter Flow Vent Setting Inspired O2 Critical Value Sodium Potassium Chloride Carbon Dioxide Anion Gap BUN Creatinine Estimated GFR POC Glucose 315 H 333 H Random Glucose Lactic Acid Calcium Phosphorus Magnesium Total Creatine Kinase Albumin Amylase Lipase Urine Color Urine Clarity Urine pH Ur Specific [place] Urine Protein Urine Glucose (UA) Urine Ketones Urine Occult Blood Urine Nitrate Urine Bilirubin Urine Urobilinogen Ur Leukocyte Esterase Urine RBC Urine WBC Urine WBC Clumps Ur Squamous Epith Cells Urine Bacteria Hyaline Casts Urine Mucus Urine Yeast Micro UA Comment Ur Microscopic Review Urine Culture Comments Urine Osmolality Ur Random Creatinine Ur Random Sodium Blood Type Antibody Screen MTS Gel Crossmatch See Detail 01/12/18 01/13/18 01/13/18 23:49 04:07 07:02 WBC 12.5 H RBC 2.42 L Hgb 7.6 L Hct 23.2 L MCV 95.7 MCH 31.2 MCHC 32.6 RDW 19.1 H Plt Count 232 MPV 11.0 Neut % (Auto) 71.6 H Lymph % (Auto) 21.2 Wood % (Auto) 5.1 Eos % (Auto) 1.5 Baso % (Auto) 0.6 Neut # (Auto) 8.9 H Lymph # (Auto) 2.6 Wood # (Auto) 0.6 Eos # (Auto) 0.2 Baso # (Auto) 0.1 WBC Differential . Differential Comment Auto diff final Puncture Site Patient Temperature O2 Saturation ABG pH ABG pCO2 ABG pO2 ABG HCO3 ABG O2 Content ABG Base Excess ABG Methemoglobin Aro[place]o Test Hemoglobin Carboxyhemoglobin O2 Delivery Device Liter Flow Vent Setting Inspired O2 Critical Value Sodium Potassium Chloride Carbon Dioxide Anion Gap BUN Creatinine Estimated GFR POC Glucose 300 H 279 H Random Glucose Lactic Acid Calcium Phosphorus Magnesium Total Creatine Kinase Albumin Amylase Lipase Urine Color Urine Clarity Urine pH Ur Specific [place] Urine Protein Urine Glucose (UA) Urine Ketones Urine Occult Blood Urine Nitrate Urine Bilirubin Urine Urobilinogen Ur Leukocyte Esterase Urine RBC Urine WBC Urine WBC Clumps Ur Squamous Epith Cells Urine Bacteria Hyaline Casts Urine Mucus Urine Yeast Micro UA Comment Ur Microscopic Review Urine Culture Comments Urine Osmolality Ur Random Creatinine Ur Random Sodium Blood Type Antibody Screen MTS Gel Crossmatch 01/13/18 01/13/18 01/13/18 07:02 07:54 12:50 WBC RBC Hgb Hct MCV MCH MCHC RDW Plt Count MPV Neut % (Auto) Lymph % (Auto) Wood % (Auto) Eos % (Auto) Baso % (Auto) Neut # (Auto) Lymph # (Auto) Wood # (Auto) Eos # (Auto) Baso # (Auto) WBC Differential Differential Comment Puncture Site Patient Temperature O2 Saturation ABG pH ABG pCO2 ABG pO2 ABG HCO3 ABG O2 Content ABG Base Excess ABG Methemoglobin Aro[place]o Test Hemoglobin Carboxyhemoglobin O2 Delivery Device Liter Flow Vent Setting Inspired O2 Critical Value Sodium 153 H Potassium 4.8 Chloride 119 H Carbon Dioxide 27.7 Anion Gap 6 BUN 71 H Creatinine 1.32 H Estimated GFR 42 L POC Glucose 285 H 222 H Random Glucose 266 H Lactic Acid Calcium 9.1 Phosphorus Magnesium Total Creatine Kinase Albumin Amylase Lipase Urine Color Urine Clarity Urine pH Ur Specific [place] Urine Protein Urine Glucose (UA) Urine Ketones Urine Occult Blood Urine Nitrate Urine Bilirubin Urine Urobilinogen Ur Leukocyte Esterase Urine RBC Urine WBC Urine WBC Clumps Ur Squamous Epith Cells Urine Bacteria Hyaline Casts Urine Mucus Urine Yeast Micro UA Comment Ur Microscopic Review Urine Culture Comments Urine Osmolality Ur Random Creatinine Ur Random Sodium Blood Type Antibody Screen MTS Gel Crossmatch 01/13/18 01/13/18 01/13/18 16:40 19:00 19:00 WBC RBC Hgb Hct MCV MCH MCHC RDW Plt Count MPV Neut % (Auto) Lymph % (Auto) Wood % (Auto) Eos % (Auto) Baso % (Auto) Neut # (Auto) Lymph # (Auto) Wood # (Auto) Eos # (Auto) Baso # (Auto) WBC Differential Differential Comment Puncture Site Patient Temperature O2 Saturation ABG pH ABG pCO2 ABG pO2 ABG HCO3 ABG O2 Content ABG Base Excess ABG Methemoglobin Aro[place]o Test Hemoglobin Carboxyhemoglobin O2 Delivery Device Liter Flow Vent Setting Inspired O2 Critical Value Sodium Potassium Chloride Carbon Dioxide Anion Gap BUN Creatinine Estimated GFR POC Glucose 201 H Random Glucose Lactic Acid Calcium Phosphorus Magnesium Total Creatine Kinase Albumin Amylase Lipase Urine Color Urine Clarity Urine pH Ur Specific [place] Urine Protein Urine Glucose (UA) Urine Ketones Urine Occult Blood Urine Nitrate Urine Bilirubin Urine Urobilinogen Ur Leukocyte Esterase Urine RBC Urine WBC Urine WBC Clumps Ur Squamous Epith Cells Urine Bacteria Hyaline Casts Urine Mucus Urine Yeast Micro UA Comment Ur Microscopic Review Urine Culture Comments Urine Osmolality 451 Ur Random Creatinine 49 Ur Random Sodium 8 Blood Type Antibody Screen MTS Gel Crossmatch 01/13/18 01/14/18 01/14/18 19:39 00:01 04:28 WBC RBC Hgb Hct MCV MCH MCHC RDW Plt Count MPV Neut % (Auto) Lymph % (Auto) Wood % (Auto) Eos % (Auto) Baso % (Auto) Neut # (Auto) Lymph # (Auto) Wood # (Auto) Eos # (Auto) Baso # (Auto) WBC Differential Differential Comment Puncture Site Patient Temperature O2 Saturation ABG pH ABG pCO2 ABG pO2 ABG HCO3 ABG O2 Content ABG Base Excess ABG Methemoglobin Aro[place]o Test Hemoglobin Carboxyhemoglobin O2 Delivery Device Liter Flow Vent Setting Inspired O2 Critical Value Sodium Potassium Chloride Carbon Dioxide Anion Gap BUN Creatinine Estimated GFR POC Glucose 163 H 184 H 193 H Random Glucose Lactic Acid Calcium Phosphorus Magnesium Total Creatine Kinase Albumin Amylase Lipase Urine Color Urine Clarity Urine pH Ur Specific [place] Urine Protein Urine Glucose (UA) Urine Ketones Urine Occult Blood Urine Nitrate Urine Bilirubin Urine Urobilinogen Ur Leukocyte Esterase Urine RBC Urine WBC Urine WBC Clumps Ur Squamous Epith Cells Urine Bacteria Hyaline Casts Urine Mucus Urine Yeast Micro UA Comment Ur Microscopic Review Urine Culture Comments Urine Osmolality Ur Random Creatinine Ur Random Sodium Blood Type Antibody Screen MTS Gel Crossmatch 01/14/18 01/14/18 01/14/18 07:05 07:05 07:57 WBC 13.3 H RBC 2.31 L Hgb 7.1 L Hct 22.1 L MCV 95.7 MCH 30.7 MCHC 32.1 RDW 19.6 H Plt Count 214 MPV 11.2 H Neut % (Auto) 73.0 H Lymph % (Auto) 19.5 Wood % (Auto) 5.8 Eos % (Auto) 1.1 Baso % (Auto) 0.6 Neut # (Auto) 9.7 H Lymph # (Auto) 2.6 Wood # (Auto) 0.8 Eos # (Auto) 0.1 Baso # (Auto) 0.1 WBC Differential . Differential Comment Auto diff final Puncture Site Patient Temperature O2 Saturation ABG pH ABG pCO2 ABG pO2 ABG HCO3 ABG O2 Content ABG Base Excess ABG Methemoglobin Aroldo Test Hemoglobin Carboxyhemoglobin O2 Delivery Device Liter Flow Vent Setting Inspired O2 Critical Value Sodium 157 H* Potassium 4.7 Chloride 122 H Carbon Dioxide 28.6 Anion Gap 6 BUN 73 H Creatinine 1.31 H Estimated GFR 42 L POC Glucose 207 H Random Glucose 186 H Lactic Acid Calcium 9.4 Phosphorus 0.1 L Magnesium Total Creatine Kinase Albumin 5.2 H Amylase Lipase Urine Color Urine Clarity Urine pH Ur Specific [place] Urine Protein Urine Glucose (UA) Urine Ketones Urine Occult Blood Urine Nitrate Urine Bilirubin Urine Urobilinogen Ur Leukocyte Esterase Urine RBC Urine WBC Urine WBC Clumps Ur Squamous Epith Cells Urine Bacteria Hyaline Casts Urine Mucus Urine Yeast Micro UA Comment Ur Microscopic Review Urine Culture Comments Urine Osmolality Ur Random Creatinine Ur Random Sodium Blood Type Antibody Screen MTS Gel Crossmatch 01/14/18 01/14/18 01/14/18 08:52 09:20 11:32 WBC RBC Hgb Hct MCV MCH MCHC RDW Plt Count MPV Neut % (Auto) Lymph % (Auto) Wood % (Auto) Eos % (Auto) Baso % (Auto) Neut # (Auto) Lymph # (Auto) Wood # (Auto) Eos # (Auto) Baso # (Auto) WBC Differential Differential Comment Puncture Site Right radial Patient Temperature 98.6 O2 Saturation 95 ABG pH 7.52 H* ABG pCO2 37 L ABG pO2 82 ABG HCO3 30 H ABG O2 Content 10.0 L ABG Base Excess 6.7 H ABG Methemoglobin 1.3 Aroldo Test Present Hemoglobin 7.4 L* Carboxyhemoglobin 1.8 O2 Delivery Device Tp Liter Flow 10.00 Vent Setting Inspired O2 80 Critical Value Yes Sodium Potassium Chloride Carbon Dioxide Anion Gap BUN Creatinine Estimated GFR POC Glucose 237 H Random Glucose Lactic Acid 2.3 H Calcium Phosphorus Magnesium Total Creatine Kinase Albumin Amylase Lipase Urine Color Urine Clarity Urine pH Ur Specific [place] Urine Protein Urine Glucose (UA) Urine Ketones Urine Occult Blood Urine Nitrate Urine Bilirubin Urine Urobilinogen Ur Leukocyte Esterase Urine RBC Urine WBC Urine WBC Clumps Ur Squamous Epith Cells Urine Bacteria Hyaline Casts Urine Mucus Urine Yeast Micro UA Comment Ur Microscopic Review Urine Culture Comments Urine Osmolality Ur Random Creatinine Ur Random Sodium Blood Type Antibody Screen MTS Gel Crossmatch 01/14/18 01/14/18 01/14/18 11:32 11:32 11:44 WBC RBC Hgb Hct MCV MCH MCHC RDW Plt Count MPV Neut % (Auto) Lymph % (Auto) Wood % (Auto) Eos % (Auto) Baso % (Auto) Neut # (Auto) Lymph # (Auto) Wood # (Auto) Eos # (Auto) Baso # (Auto) WBC Differential Differential Comment Puncture Site Patient Temperature O2 Saturation ABG pH ABG pCO2 ABG pO2 ABG HCO3 ABG O2 Content ABG Base Excess ABG Methemoglobin Aroldo Test Hemoglobin Carboxyhemoglobin O2 Delivery Device Liter Flow Vent Setting Inspired O2 Critical Value Sodium Potassium Chloride Carbon Dioxide Anion Gap BUN Creatinine Estimated GFR POC Glucose 190 H Random Glucose Lactic Acid Calcium Phosphorus Magnesium Total Creatine Kinase 39 Albumin Amylase 49 Lipase 55 L Urine Color Urine Clarity Urine pH Ur Specific [place] Urine Protein Urine Glucose (UA) Urine Ketones Urine Occult Blood Urine Nitrate Urine Bilirubin Urine Urobilinogen Ur Leukocyte Esterase Urine RBC Urine WBC Urine WBC Clumps Ur Squamous Epith Cells Urine Bacteria Hyaline Casts Urine Mucus Urine Yeast Micro UA Comment Ur Microscopic Review Urine Culture Comments Urine Osmolality Ur Random Creatinine Ur Random Sodium Blood Type Antibody Screen MTS Gel Crossmatch 01/14/18 01/14/18 01/14/18 15:43 15:43 15:54 WBC RBC Hgb Hct MCV MCH MCHC RDW Plt Count MPV Neut % (Auto) Lymph % (Auto) Wood % (Auto) Eos % (Auto) Baso % (Auto) Neut # (Auto) Lymph # (Auto) Wood # (Auto) Eos # (Auto) Baso # (Auto) WBC Differential Differential Comment Puncture Site Patient Temperature O2 Saturation ABG pH ABG pCO2 ABG pO2 ABG HCO3 ABG O2 Content ABG Base Excess ABG Methemoglobin Aroldo Test Hemoglobin Carboxyhemoglobin O2 Delivery Device Liter Flow Vent Setting Inspired O2 Critical Value Sodium Potassium Chloride Carbon Dioxide Anion Gap BUN Creatinine Estimated GFR POC Glucose 159 H Random Glucose Lactic Acid 2.1 H Calcium Phosphorus Magnesium Total Creatine Kinase Albumin Amylase Lipase Urine Color Urine Clarity Urine pH Ur Specific [place] Urine Protein Urine Glucose (UA) Urine Ketones Urine Occult Blood Urine Nitrate Urine Bilirubin Urine Urobilinogen Ur Leukocyte Esterase Urine RBC Urine WBC Urine WBC Clumps Ur Squamous Epith Cells Urine Bacteria Hyaline Casts Urine Mucus Urine Yeast Micro UA Comment Ur Microscopic Review Urine Culture Comments Urine Osmolality Ur Random Creatinine Ur Random Sodium Blood Type O Negative Antibody Screen Negative MTS Gel Crossmatch See Detail 01/14/18 01/14/18 01/14/18 16:00 18:34 18:52 WBC RBC Hgb Hct MCV MCH MCHC RDW Plt Count MPV Neut % (Auto) Lymph % (Auto) Wood % (Auto) Eos % (Auto) Baso % (Auto) Neut # (Auto) Lymph # (Auto) Wood # (Auto) Eos # (Auto) Baso # (Auto) WBC Differential Differential Comment Puncture Site Art line Patient Temperature 98.6 O2 Saturation 94 ABG pH 7.47 H ABG pCO2 35 L ABG pO2 78 ABG HCO3 25 ABG O2 Content 9.0 L ABG Base Excess 1.5 ABG Methemoglobin 1.9 Aroldo Test Present Hemoglobin 6.8 L* Carboxyhemoglobin 1.6 O2 Delivery Device Ventilator Liter Flow Vent Setting Inspired O2 50 Critical Value Yes Sodium Potassium Chloride Carbon Dioxide Anion Gap BUN Creatinine Estimated GFR POC Glucose 158 H Random Glucose Lactic Acid Calcium Phosphorus Magnesium Total Creatine Kinase Albumin Amylase Lipase Urine Color Yellow Urine Clarity Hazy H Urine pH 8.0 Ur Specific [place] 1.015 Urine Protein 500 or greater Urine Glucose (UA) Negative Urine Ketones Negative Urine Occult Blood Small H Urine Nitrate Negative Urine Bilirubin Negative Urine Urobilinogen Less than 2 Ur Leukocyte Esterase Large H Urine RBC 8 H Urine WBC Urine WBC Clumps Few H Ur Squamous Epith Cells 1 Urine Bacteria Few H Hyaline Casts 3 Urine Mucus Few H Urine Yeast Occasional H Micro UA Comment Cath-culture ind Ur Microscopic Review Not Reportable Urine Culture Comments Cath-cult indicated Urine Osmolality Ur Random Creatinine Ur Random Sodium Blood Type Antibody Screen MTS Gel Crossmatch 01/14/18 01/14/18 01/15/18 18:55 22:02 00:41 WBC RBC Hgb Hct MCV MCH MCHC RDW Plt Count MPV Neut % (Auto) Lymph % (Auto) Wood % (Auto) Eos % (Auto) Baso % (Auto) Neut # (Auto) Lymph # (Auto) Wood # (Auto) Eos # (Auto) Baso # (Auto) WBC Differential Differential Comment Puncture Site Cancelled Patient Temperature Cancelled O2 Saturation Cancelled ABG pH Cancelled ABG pCO2 Cancelled ABG pO2 Cancelled ABG HCO3 Cancelled ABG O2 Content Cancelled ABG Base Excess Cancelled ABG Methemoglobin Cancelled [place] Test Cancelled Hemoglobin Cancelled Carboxyhemoglobin Cancelled O2 Delivery Device Cancelled Liter Flow Cancelled Vent Setting Cancelled Inspired O2 Cancelled Critical Value Cancelled Sodium Potassium Chloride Carbon Dioxide Anion Gap BUN Creatinine Estimated GFR POC Glucose 191 H 182 H Random Glucose Lactic Acid Calcium Phosphorus Magnesium Total Creatine Kinase Albumin Amylase Lipase Urine Color Urine Clarity Urine pH Ur Specific [place] Urine Protein Urine Glucose (UA) Urine Ketones Urine Occult Blood Urine Nitrate Urine Bilirubin Urine Urobilinogen Ur Leukocyte Esterase Urine RBC Urine WBC Urine WBC Clumps Ur Squamous Epith Cells Urine Bacteria Hyaline Casts Urine Mucus Urine Yeast Micro UA Comment Ur Microscopic Review Urine Culture Comments Urine Osmolality Ur Random Creatinine Ur Random Sodium Blood Type Antibody Screen MTS Gel Crossmatch 01/15/18 01/15/18 01/15/18 04:45 04:45 09:16 WBC 21.2 H D RBC 2.37 L Hgb 7.2 L Hct 22.3 L MCV 94.3 MCH 30.4 MCHC 32.3 RDW 19.2 H Plt Count 285 D MPV 11.3 H Neut % (Auto) 80.9 H Lymph % (Auto) 13.2 [place] % (Auto) 4.6 Eos % (Auto) 0.4 Baso % (Auto) 0.9 Neut # (Auto) 17.1 H Lymph # (Auto) 2.8 [place] # (Auto) 1.0 H Eos # (Auto) 0.1 Baso # (Auto) 0.2 WBC Differential . Differential Comment Auto diff final Puncture Site Patient Temperature O2 Saturation ABG pH ABG pCO2 ABG pO2 ABG HCO3 ABG O2 Content ABG Base Excess ABG Methemoglobin Aroldo Test Hemoglobin Carboxyhemoglobin O2 Delivery Device Liter Flow Vent Setting Inspired O2 Critical Value Sodium 151 H Potassium 4.0 Chloride 118 H Carbon Dioxide 24.7 Anion Gap 8 BUN 72 H Creatinine 1.48 H Estimated GFR 37 L POC Glucose 265 H Random Glucose 213 H Lactic Acid Calcium 8.3 L D Phosphorus 1.0 L Magnesium 2.5 Total Creatine Kinase Albumin Amylase Lipase Urine Color Urine Clarity Urine pH Ur Specific [place] Urine Protein Urine Glucose (UA) Urine Ketones Urine Occult Blood Urine Nitrate Urine Bilirubin Urine Urobilinogen Ur Leukocyte Esterase Urine RBC Urine WBC Urine WBC Clumps Ur Squamous Epith Cells Urine Bacteria Hyaline Casts Urine Mucus Urine Yeast Micro UA Comment Ur Microscopic Review Urine Culture Comments Urine Osmolality Ur Random Creatinine Ur Random Sodium Blood Type Antibody Screen MTS Gel Crossmatch 01/15/18 11:52 WBC RBC Hgb Hct MCV MCH MCHC RDW Plt Count MPV Neut % (Auto) Lymph % (Auto) [place] % (Auto) Eos % (Auto) Baso % (Auto) Neut # (Auto) Lymph # (Auto) [place] # (Auto) Eos # (Auto) Baso # (Auto) WBC Differential Differential Comment Puncture Site Patient Temperature O2 Saturation ABG pH ABG pCO2 ABG pO2 ABG HCO3 ABG O2 Content ABG Base Excess ABG Methemoglobin Aroldo Test Hemoglobin Carboxyhemoglobin O2 Delivery Device Liter Flow Vent Setting Inspired O2 Critical Value Sodium Potassium Chloride Carbon Dioxide Anion Gap BUN Creatinine Estimated GFR POC Glucose 290 H Random Glucose Lactic Acid Calcium Phosphorus Magnesium Total Creatine Kinase Albumin Amylase Lipase Urine Color Urine Clarity Urine pH Ur Specific [place] Urine Protein Urine Glucose (UA) Urine Ketones Urine Occult Blood Urine Nitrate Urine Bilirubin Urine Urobilinogen Ur Leukocyte Esterase Urine RBC Urine WBC Urine WBC Clumps Ur Squamous Epith Cells Urine Bacteria Hyaline Casts Urine Mucus Urine Yeast Micro UA Comment Ur Microscopic Review Urine Culture Comments Urine Osmolality Ur Random Creatinine Ur Random Sodium Blood Type Antibody Screen MTS Gel Crossmatch Result Diagrams: 01/15/18 04:45 01/15/18 04:45 Microbiology: Microbiology 01/14/18 09:24 Gram Stain - Final Sputum - Endotracheal Sputum Culture - Preliminary Pseudomonas species 01/14/18 16:00 Urine Culture - Preliminary Catheterized Urine Pseudomonas species 12/24/17 12:20 Acid Fast Bacilli Smear - Final Tissue - Buttock No acid fast bacilli seen Mycobacterial Culture - Preliminary No growth in 3 weeks 01/14/18 10:30 Aerobic Blood Culture - Preliminary Blood - Peripheral No growth in 1 day Anaerobic Blood Culture - Preliminary No growth in 1 day 01/14/18 10:35 Aerobic Blood Culture - Preliminary Blood - Peripheral No growth in 1 day Anaerobic Blood Culture - Preliminary No growth in 1 day 12/24/17 12:20 Fungal Smear - Final Tissue - Buttock Rare budding yeast Fungal Culture - Final Talia albicans Talia tropicalis Imaging: Impressions Chest X-Ray 01/14/18 00:00 CONCLUSION: 1. Tubes and lines, as above. 2. Slight improved aeration of the lower lung zones with persistent mild patchy airspace disease and probable trace left pleural effusion. Procedures: 12/15/2017: Endotracheal intubation 12/15/2017: Left subclavian central line placement 12/15/2017: NGT placement 12/15/2017: I&D with wound HEMOVAC placement 12/18/2017: I&D with wound VAC change 12/21/2017: I&D with wound VAC change 12/24/2017: I&D with wound VAC change 12/28/2017: perc trach, wound vac change to back, buttock, posterior thigh 12/31/2017: I&D with wound VAC change, removal of coccyx bone 01/04/2018: I&D with wound VAC change 01/08/2018: I&D with wound VAC change, partial closure Assessment and Plan - Disease Oriented Problem List (1) Septic shock with acute organ dysfunction due to anaerobic bacteria (2) Acute respiratory failure (3) Type 2 diabetes mellitus with hyperosmolar nonketotic hyperglycemia (4) Necrotizing fasciitis (5) MARIO (acute kidney injury) (6) Lactic acidosis (7) Hypernatremia - Symptom Scale (1) Pain 0-10 Scale: Unable to quantify (2) Debility 0-10 Scale: Unable to quantify (3) Fever 0-10 Scale: Unable to quantify (4) Dyspnea 0-10 Scale: Unable to quantify Pertinent Non-Medical Issues: Psychosocial:Originally from [place]. Currently . Spiritual: No mormonism affiliation. Legal: Per [place] statutes, in the absence of written advanced directives health care proxy decision making will fall to the patient's , Tyrone. Ethical issues impacting care: No known ethical issues impacting care at this time. Important Contacts: Tyrone Middleton, : [phone] Sister Linette Lebron , Prognosis: Patient is critically ill and in septic shock with necrotizing fasciitis secondary to a chronic sacral decubitus. Upon arrival to the ED, the patient was hyperglycemic with a blood glucose of 610, severely dehydrated and in profound shock. She is intubated on mechanical ventilation requiring pressor support status post wide excision of the involved soft tissue. Patient will require further debridement in the future. She remains hemodynamically unstable and critically ill. Now declining, may not survive this hospitalization. Very poor overall prognosis for meaningful recovery. Code Status: Full Code Plan: * CODE STATUS: FULL CODE. Risks, benefits and limitations of CPR were discussed at length with patient's on 01/14. * HEALTHCARE DECISION-MAKING: Patient lacks insight and judgment related to her complicated clinical condition. It is unclear if she will regain capacity for medical decision-making. Per [place] statute, in the absence of written advanced directives healthcare proxy decision making falls to the patient's , Tyrone Middleton. He has accepted this role. * GOALS OF CARE: 01/14/18: As per patient's , goals remain aggressive at this time. Shared concerns of patient's ongoing clinical medical issues to include necrotizing fasciitis to back and buttocks, profound physical deconditioning, infection, respiratory distress status post tracheostomy, chronic ongoing medical issues and now transfer back to ICU for recurrent sepsis. Lengthy conversation regarding CODE status given tachypnea, tachycardia and hypotension, he desires FULL CODE understanding even with cardiac resuscitation she may not survive. He is appropriately upset and tells me he will be here tonight to see her and is off tomorrow. He is appreciative of the call and requests update 01/15/18. 01/15 VM left for . * Symptom management: = Pain: Multifactoral. Patient has a long history of chronic conditions. Possible contributing factors include severe peripheral arterial disease, recent BKA, peripheral neuropathy, sepsis, necrotizing fasciitis, invasive lines , immobility. Currently on fentanyl patch 50 mcg q72hrs. Appears comfortable at time of my visit,nods NO to pain. no further recommendations. = Debility/profound physical deconditioning: Patient with uncontrolled diabetes with severe peripheral arterial disease and smoking. 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 Debility anticipated to worsen. now back in ICU on vent, which will further limit restorative efforts = Fever - due to sepsis. BC pending. likely due to large extensive wounds and possible fecal contamination. = Dyspnea: on oxygen via t-piece yesterday,later back on vent, CPAP trial today resulting in tachypnea/tachycardia. * Palliative care contact information was provided to the patient's . * Palliative care will continue to follow this patient throughout her hospitalization to establish trust, assist with symptom management and clarification of medical treatment goals. Attestation Attestation: To help prompt me to consider important information that might be impacting today's encounter and assessment, information from prior notes written by myself or my colleagues may have been "brought forward" into today's note. My signature on this note, however, is an attestation that I personally performed the exam, history, and/or decision-making noted today, and, unless otherwise indicated, the interactions with patient, family, and staff as well as the review of records all occurred today. I also attest that the listed assessment and stated plan reflect my best clinical judgment today based on the combination of historical information, prior notes, and today's exam/ interactions. When time spent is documented, it refers only to time spent today by the signer, or if indicated, combined time spent today by collaborating physician/nurse practitioner.
[2018-01-16] MEDS: Oral Hygiene Kit OROPHARYNG SCH ×3 (01:41→16:28)
[2018-01-16] MEDS: Insulin NovoLIN Regular Correctional Sugar Inj SQ SCH ×5 (01:41→21:09)
[2018-01-16] MEDS: Piperacil/Tazo 3.375 GM Premix 50 ML IV.SIG SCH ×4 (01:46→21:10)
[2018-01-16] MEDS: Albumin Human 25% Inj 100 ML IV.SIG SCH ×4 (04:55→21:12)
[2018-01-16] MEDS: metroNIDAZOLE 500 MG Tablet NG/OG SCH ×3 (04:59→21:13)
[2018-01-16 05:44] LABS: Baso # (Auto) 0.1 th/mm3 (0.0-0.2); Baso % (Auto) 0.9 % (0.0-2.0); Eos # (Auto) 0.3 th/mm3 (0.0-0.4); Eos % (Auto) 2.1 % (0.0-4.0); Hematocrit 22.1 % (35.0-46.0); Hemoglobin 7.4 gm/dL (11.6-15.3); Lymph # (Auto) 1.7 th/mm3 (1.0-4.8); Lymph % (Auto) 11.4 % (9.0-44.0); Mean Corpuscular HGB Conc 33.4 % (32.0-36.0); Mean Corpuscular Hemoglobin 30.4 pg (27.0-34.0); Mean Platelet Volume 11.5 fL (7.0-11.0); Mono # (Auto) 0.6 th/mm3 (0.0-0.9); Neut # (Auto) 12.5 th/mm3 (1.8-7.7); Neut % (Auto) 81.6 % (16.0-70.0); Platelet Count 214 th/mm3 (150-450); Red Blood Count 2.43 mil/mm3 (4.00-5.30); Red Cell Distribution Width 19.7 % (11.6-17.2); White Blood Count 15.3 th/mm3 (4.0-11.0)
[2018-01-16 06:19] LABS: Calcium 7.8 mg/dL (8.5-10.1); Carbon Dioxide 22.1 meq/L (21.0-32.0); Potassium 3.1 meq/L (3.5-5.1)
[2018-01-16] MEDS: Sodium Chloride 23.4% Inj 38.5 MEQ in Water for Inj, Sterile 1,000 ML IV.CONT SCH ×2 (07:26→16:27)
[2018-01-16] MEDS: Potassium Phosphate 500 MG Soluble Tablet NG/OG SCH ×2 (08:46→21:13)
[2018-01-16] MEDS: Lisinopril 5 MG Tablet NG/OG SCH (08:46)
[2018-01-16] MEDS: Insulin Detemir Inj 1,000 UNIT/10 ML Vial SQ SCH ×2 (08:47→22:49)
[2018-01-16] MEDS: hydrALAZINE 50 MG Tablet NG/OG SCH ×2 (08:47→13:56)
[2018-01-16] MEDS: Potassium Bicarbonate 25 MEQ Effervescent Tablet NG/OG SCH ×2 (08:47→21:13)
[2018-01-16] MEDS: Metoprolol Tartrate 50 MG Tablet NG/OG SCH ×2 (08:48→21:13)
[2018-01-16] MEDS: Lansoprazole ODT 15 MG Tablet NG/OG SCH (09:41)
[2018-01-16] MEDS: Vancomycin Inj 1,250 MG in Sodium Chlor 0.9% Inj 250 ML IV.SIG SCH (13:55)
--- NOTE | 2018-01-16 15:04 | P.PNID ---
Subjective Remarks: [place] [facility] [place] distress, fever and altered mental status. Tachypneic with increased respiratory rate and tachycardic. She is awake. appears to be paying attention to the TV. No verbally responding to me. Afebrile. Sputum and urine culture have pseudomonas. This is a 52-year-old white female who was brought to the emergency department after she fell at home. The patient was noted to have profound weakness. She was evaluated in the emergency department and at that time had normal temperature and white blood cell count was also normal. She underwent CT scan of the abdomen and pelvis that showed extensive subcutaneous and soft tissue gas bilaterally with the left greater than right, most severe in the left gluteal region and extending into the proximal posterior thigh soft tissue and air-fluid dissecting through the gluteal musculature. Allergies/Adverse Reactions: Allergies No Known Allergies Allergy (Verified 12/15/17 07:54) Objective Vital Signs 01/15/18 15:00 01/15/18 15:13 01/15/18 15:14 Temperature Pulse Rate 109 H 108 H Respiratory Rate 28 H 24 25 H Blood Pressure 101/60 Pulse Oximetry 100 100 01/15/18 15:15 01/15/18 15:30 01/15/18 15:45 Temperature Pulse Rate 108 H 107 H 107 H Respiratory Rate 28 H 27 H 24 Blood Pressure 102/62 110/61 99/58 L Pulse Oximetry 100 100 100 01/15/18 16:00 01/15/18 16:15 01/15/18 16:30 Temperature 101.3 F H Pulse Rate 106 H 107 H 105 H Respiratory Rate 23 25 H 25 H Blood Pressure 109/59 L 104/59 L 105/61 Pulse Oximetry 100 100 100 01/15/18 19:00 01/15/18 20:00 01/15/18 21:00 Temperature 99.5 F Pulse Rate 94 H 95 H Respiratory Rate 21 21 Blood Pressure 119/64 121/68 Pulse Oximetry 100 100 100 01/15/18 21:16 01/15/18 22:00 01/15/18 23:00 Temperature Pulse Rate 93 H 92 H 95 H Respiratory Rate 23 23 24 Blood Pressure 125/68 121/68 Pulse Oximetry 100 100 01/16/18 00:00 01/16/18 00:10 01/16/18 01:00 Temperature 98.5 F Pulse Rate 91 H 95 H 84 Respiratory Rate 23 22 20 Blood Pressure 124/71 123/65 Pulse Oximetry 100 100 01/16/18 02:00 01/16/18 02:45 01/16/18 03:00 Temperature Pulse Rate 85 86 84 Respiratory Rate 21 20 21 Blood Pressure 135/75 127/73 124/67 Pulse Oximetry 100 100 100 01/16/18 03:15 01/16/18 03:37 01/16/18 03:39 Temperature Pulse Rate 87 87 Respiratory Rate 21 19 19 Blood Pressure 133/73 Pulse Oximetry 100 100 01/16/18 03:45 01/16/18 04:00 01/16/18 04:15 Temperature 98.5 F Pulse Rate 85 87 83 Respiratory Rate 21 19 21 Blood Pressure 132/70 131/73 131/73 Pulse Oximetry 100 100 100 01/16/18 04:30 01/16/18 04:45 01/16/18 05:00 Temperature Pulse Rate 84 84 83 Respiratory Rate 21 21 21 Blood Pressure 135/71 133/70 134/73 Pulse Oximetry 100 100 100 01/16/18 05:15 01/16/18 05:30 01/16/18 05:45 Temperature Pulse Rate 82 83 78 Respiratory Rate 21 21 11 L Blood Pressure 132/68 123/67 131/73 Pulse Oximetry 100 100 100 01/16/18 06:00 01/16/18 06:15 01/16/18 06:30 Temperature Pulse Rate 86 84 83 Respiratory Rate 22 22 23 Blood Pressure 128/73 130/73 131/74 Pulse Oximetry 98 100 100 01/16/18 07:00 01/16/18 07:15 01/16/18 07:30 Temperature Pulse Rate 82 82 78 Respiratory Rate 22 23 21 Blood Pressure 134/72 134/74 133/75 Pulse Oximetry 100 100 100 01/16/18 07:45 01/16/18 08:00 01/16/18 08:04 Temperature 98.5 F Pulse Rate 80 84 84 Respiratory Rate 22 23 21 Blood Pressure 138/78 138/76 Pulse Oximetry 100 100 01/16/18 08:15 01/16/18 08:30 01/16/18 08:45 Temperature Pulse Rate 82 81 77 Respiratory Rate 25 H 23 22 Blood Pressure 142/79 H 139/75 140/76 Pulse Oximetry 100 100 100 01/16/18 09:00 01/16/18 09:15 01/16/18 09:30 Temperature Pulse Rate 85 84 79 Respiratory Rate 25 H 25 H 22 Blood Pressure 140/80 137/76 125/69 Pulse Oximetry 100 100 100 01/16/18 09:45 01/16/18 10:00 01/16/18 10:15 Temperature Pulse Rate 80 81 82 Respiratory Rate 23 22 22 Blood Pressure 128/74 127/71 140/80 Pulse Oximetry 100 100 100 01/16/18 10:30 01/16/18 10:45 01/16/18 11:00 Temperature Pulse Rate 79 80 81 Respiratory Rate 23 23 24 Blood Pressure 133/73 135/77 131/70 Pulse Oximetry 100 100 100 01/16/18 11:15 01/16/18 11:16 01/16/18 11:30 Temperature Pulse Rate 77 78 80 Respiratory Rate 27 H 26 H 29 H Blood Pressure 128/75 133/75 Pulse Oximetry 99 100 100 01/16/18 11:45 01/16/18 12:00 Temperature 98.8 F Pulse Rate 84 81 Respiratory Rate 28 H 27 H Blood Pressure 134/76 131/75 Pulse Oximetry 100 100 Intake & Output 01/15/18 01/16/18 01/16/18 18:59 06:59 18:59 Intake Total 1677.5 / 1677.5 1859.625 / 1859.625 50 / 50 Output Total 1550 / 1550 1075 / 1075 Balance 127.5 / 127.5 784.625 / 784.625 50 / 50 Weight 65.2 kg Intake: IV 1277.5 / 1277.5 1259.625 / 1259.625 50 / 50 1/2 Normal Saline Inj 1,000 ML 465 / 465 @ 70 mls/hr IV.CONT .[id number] [facility] Rx#:[id number] Sodium Chloride 23.4% Inj 38.5 1009.625 / 1009.625 MEQ In Sterile Water for Inj 1, 000 ML @ 84 mls/hr IV.CONT . Q12H2M [facility] Rx#:[id number] Flexbumin 25% Inj 100 ML @ 60 200 / 200 200 / 200 mls/hr IV.SIG Q6H [facility] Rx#: [id number] Diflucan 200 mg Premix Bag 100 200 / 200 ML @ 100 mls/hr IV.SIG Q24H [facility] Rx#:[id number] Zosyn 3.375 GM Premix 50 ML @ 150 / 150 50 / 50 50 / 50 100 mls/hr IV.SIG Q6H [facility] Rx#: [id number] Vancomycin Inj 1,250 MG In NS 262.5 / 262.5 Inj 250 ML @ 250 mls/hr IV.SIG Q24H [facility] Rx#:[id number] Water Bolus Amount 600 / 600 Intake (Blood Product) Amt 400 / 400 Rbc As-3 Leukoreduced Unit 400 / 400 [id number] Output: Stool 300 / 300 300 / 300 Urine Amount (Catheter) 850 / 850 650 / 650 Indwelling Urethral Catheter 850 / 850 650 / 650 Wound Vac Amount 400 / 400 125 / 125 Sacrum 400 / 400 125 / 125 Other: Mode Setting Posterior Sacrum Continuous Continuous Continuous Sacrum Continuous Continuous Continuous Date of Last Bowel Movement 01/15/18 01/16/18 01/16/18 01/14/18 16:00 Catheterized Urine Urine Culture - Final Pseudomonas aeruginosa 01/14/18 10:30 Blood - Peripheral Aerobic Blood Culture - Preliminary No growth in 2 days 01/14/18 10:30 Blood - Peripheral Anaerobic Blood Culture - Preliminary No growth in 2 days 01/14/18 10:35 Blood - Peripheral Aerobic Blood Culture - Preliminary No growth in 2 days 01/14/18 10:35 Blood - Peripheral Anaerobic Blood Culture - Preliminary No growth in 2 days 01/14/18 09:24 Sputum - Endotracheal Gram Stain - Final 01/14/18 09:24 Sputum - Endotracheal Sputum Culture - Preliminary Pseudomonas aeruginosa 12/24/17 12:20 Tissue - Buttock Acid Fast Bacilli Smear - Final No acid fast bacilli seen 12/24/17 12:20 Tissue - Buttock Mycobacterial Culture - Preliminary No growth in 3 weeks 12/24/17 12:20 Tissue - Buttock Fungal Smear - Final Rare budding yeast 12/24/17 12:20 Tissue - Buttock Fungal Culture - Final Talia albicans Talia tropicalis Lab - Hematology Results 01/15/18 01/16/18 04:45 05:29 WBC 21.2 H D 15.3 H RBC 2.37 L 2.43 L Hgb 7.2 L 7.4 L Hct 22.3 L 22.1 L MCV 94.3 91.0 MCH 30.4 30.4 MCHC 32.3 33.4 RDW 19.2 H 19.7 H Plt Count 285 D 214 MPV 11.3 H 11.5 H Neut % (Auto) 80.9 H 81.6 H Lymph % (Auto) 13.2 11.4 [place] % (Auto) 4.6 4.0 Eos % (Auto) 0.4 2.1 Baso % (Auto) 0.9 0.9 Neut # (Auto) 17.1 H 12.5 H Lymph # (Auto) 2.8 1.7 [place] # (Auto) 1.0 H 0.6 Eos # (Auto) 0.1 0.3 Baso # (Auto) 0.2 0.1 WBC Differential . . Differential Comment Auto diff final Auto diff final Lab - Chemistry Results 01/14/18 01/14/18 01/14/18 15:43 15:54 18:34 Sodium Potassium Chloride Carbon Dioxide Anion Gap BUN Creatinine Estimated GFR POC Glucose 159 H 158 H Random Glucose Lactic Acid 2.1 H Calcium Phosphorus Magnesium 01/14/18 01/15/18 01/15/18 22:02 00:41 04:45 Sodium 151 H Potassium 4.0 Chloride 118 H Carbon Dioxide 24.7 Anion Gap 8 BUN 72 H Creatinine 1.48 H Estimated GFR 37 L POC Glucose 191 H 182 H Random Glucose 213 H Lactic Acid Calcium 8.3 L D Phosphorus 1.0 L Magnesium 2.5 01/15/18 01/15/18 01/15/18 09:16 11:52 16:51 Sodium Potassium Chloride Carbon Dioxide Anion Gap BUN Creatinine Estimated GFR POC Glucose 265 H 290 H 253 H Random Glucose Lactic Acid Calcium Phosphorus Magnesium 01/15/18 01/16/18 01/16/18 20:38 01:35 04:36 Sodium Potassium Chloride Carbon Dioxide Anion Gap BUN Creatinine Estimated GFR POC Glucose 209 H 192 H 183 H Random Glucose Lactic Acid Calcium Phosphorus Magnesium 01/16/18 01/16/18 01/16/18 05:29 09:07 14:06 Sodium 147 H Potassium 3.1 L D Chloride 116 H Carbon Dioxide 22.1 Anion Gap 9 BUN 59 H Creatinine 1.24 H Estimated GFR 45 L POC Glucose 174 H 113 H Random Glucose 169 H Lactic Acid Calcium 7.8 L Phosphorus Magnesium Imaging: ITS Impressions Femur X-Ray 12/15/17 07:05 CONCLUSION: No fracture is identified. There is extensive soft tissue air in the right gluteal region and extending into the proximal and mid posterior thigh. The soft tissue air suggests an open wound. Pelvis X-Ray 12/15/17 07:05 CONCLUSION: No fracture is identified. However, there is extensive soft tissue air in the left gluteal region and left proximal thigh. Pelvis CT 12/15/17 07:52 CONCLUSION: 1. No fracture is identified. 2. Extensive subcutaneous and soft tissue gas bilaterally, left greater than right. It is most severe in the left gluteal region and extends into the proximal posterior thigh. The soft tissue air dissects through the gluteal musculature. There is adjacent subcutaneous edema. Foot X-Ray 12/18/17 00:00 CONCLUSION: Remote small avulsion fracture at the fifth toe. No acute bony abnormality. Venous Doppler Study 12/22/17 00:00 CONCLUSION: Extensive deep vein thrombosis of the left upper extremity. Abdomen X-Ray 01/08/18 00:08 CONCLUSION: Feeding tube tip is in the region of the distal stomach Chest X-Ray 01/14/18 00:00 CONCLUSION: 1. Tubes and lines, as above. 2. Slight improved aeration of the lower lung zones with persistent mild patchy airspace disease and probable trace left pleural effusion. Physical Exam: PHYSICAL EXAMINATION: GENERAL: Awake. No distress. HEENT: Pale sclera. No icterus. NECK: Supple. No adenopathy or swelling. LUNGS: Decreased breath sounds with scattered rhonchi. HEART: irregular S1 and S2. 1-2/6 systolic murmur at the left sternal border. ABDOMEN: Bowel sounds present, soft. BACK: Surgical wound post debridement across the lower back, buttock and thigh. Vac in place. EXTREMITIES: No clubbing, no cyanosis or edema. abrasion with dry necrotic changes at left dorsal toes 2-4. SKIN: No diffuse rash. Scattered ecchymotic lesions. NEUROLOGIC: Unable to assess. PSYCHIATRIC: Unable to assess. Assessment and Plan - Plan IMPRESSION: 1. Necrotizing fasciitis of the back, buttock and thigh. Talia albicans and Talia tropicalis. 2. Septic shock. Responded to broad-spectrum antibiotics. 3. Acute respiratory failure. 4. Chronic kidney disease. 5. Leukocytosis. Improved. 6. UTI - pseudomonas. 7. New episode of sepsis. 8. PNA pseudomonas. Probable aspiration. RECOMMENDATIONS: 1. Continue Diflucan. 2. Continue Flagyl p.o. empiric anaerobic coverage. 3. Continue vancomycin. 4. Continue Zosyn. 5. Follow blood cultures.
[2018-01-16] MEDS: Collagenase Oint 30 GM Tube TOPICAL SCH (16:28)
[2018-01-16] MEDS: Chlorhexidine 0.12% Oral Kit 15 ML UDC OROPHARYNG SCH ×2 (16:28→21:11)
[2018-01-16] MEDS: Senna/Docusate Sodium 8.6/50 MG Tablet NG/OG SCH ×2 (16:28→22:49)
--- NOTE | 2018-01-16 17:05 | P.PNNP ---
Subjective Interval history: Patient is on ventilator awake Physical Exam Vital signs: Vital Signs 01/15/18 19:00 01/15/18 20:00 01/15/18 21:00 Temperature 99.5 F Pulse Rate 94 H 95 H Respiratory Rate 21 21 Blood Pressure 119/64 121/68 Pulse Oximetry 100 100 100 01/15/18 21:16 01/15/18 22:00 01/15/18 23:00 Temperature Pulse Rate 93 H 92 H 95 H Respiratory Rate 23 23 24 Blood Pressure 125/68 121/68 Pulse Oximetry 100 100 01/16/18 00:00 01/16/18 00:10 01/16/18 01:00 Temperature 98.5 F Pulse Rate 91 H 95 H 84 Respiratory Rate 23 22 20 Blood Pressure 124/71 123/65 Pulse Oximetry 100 100 01/16/18 02:00 01/16/18 02:45 01/16/18 03:00 Temperature Pulse Rate 85 86 84 Respiratory Rate 21 20 21 Blood Pressure 135/75 127/73 124/67 Pulse Oximetry 100 100 100 01/16/18 03:15 01/16/18 03:37 01/16/18 03:39 Temperature Pulse Rate 87 87 Respiratory Rate 21 19 19 Blood Pressure 133/73 Pulse Oximetry 100 100 01/16/18 03:45 01/16/18 04:00 01/16/18 04:15 Temperature 98.5 F Pulse Rate 85 87 83 Respiratory Rate 21 19 21 Blood Pressure 132/70 131/73 131/73 Pulse Oximetry 100 100 100 01/16/18 04:30 01/16/18 04:45 01/16/18 05:00 Temperature Pulse Rate 84 84 83 Respiratory Rate 21 21 21 Blood Pressure 135/71 133/70 134/73 Pulse Oximetry 100 100 100 01/16/18 05:15 01/16/18 05:30 01/16/18 05:45 Temperature Pulse Rate 82 83 78 Respiratory Rate 21 21 11 L Blood Pressure 132/68 123/67 131/73 Pulse Oximetry 100 100 100 01/16/18 06:00 01/16/18 06:15 01/16/18 06:30 Temperature Pulse Rate 86 84 83 Respiratory Rate 22 22 23 Blood Pressure 128/73 130/73 131/74 Pulse Oximetry 98 100 100 01/16/18 07:00 01/16/18 07:15 01/16/18 07:30 Temperature Pulse Rate 82 82 78 Respiratory Rate 22 23 21 Blood Pressure 134/72 134/74 133/75 Pulse Oximetry 100 100 100 01/16/18 07:45 01/16/18 08:00 01/16/18 08:04 Temperature 98.5 F Pulse Rate 80 84 84 Respiratory Rate 22 23 21 Blood Pressure 138/78 138/76 Pulse Oximetry 100 100 01/16/18 08:15 01/16/18 08:30 01/16/18 08:45 Temperature Pulse Rate 82 81 77 Respiratory Rate 25 H 23 22 Blood Pressure 142/79 H 139/75 140/76 Pulse Oximetry 100 100 100 01/16/18 09:00 01/16/18 09:15 01/16/18 09:30 Temperature Pulse Rate 85 84 79 Respiratory Rate 25 H 25 H 22 Blood Pressure 140/80 137/76 125/69 Pulse Oximetry 100 100 100 01/16/18 09:45 01/16/18 10:00 01/16/18 10:15 Temperature Pulse Rate 80 81 82 Respiratory Rate 23 22 22 Blood Pressure 128/74 127/71 140/80 Pulse Oximetry 100 100 100 01/16/18 10:30 01/16/18 10:45 01/16/18 11:00 Temperature Pulse Rate 79 80 81 Respiratory Rate 23 23 24 Blood Pressure 133/73 135/77 131/70 Pulse Oximetry 100 100 100 01/16/18 11:15 01/16/18 11:16 01/16/18 11:30 Temperature Pulse Rate 77 78 80 Respiratory Rate 27 H 26 H 29 H Blood Pressure 128/75 133/75 Pulse Oximetry 99 100 100 01/16/18 11:45 01/16/18 12:00 01/16/18 15:50 Temperature 98.8 F Pulse Rate 84 81 84 Respiratory Rate 28 H 27 H 30 H Blood Pressure 134/76 131/75 Pulse Oximetry 100 100 100 Intake & Output 01/15/18 01/16/18 01/16/18 18:59 06:59 18:59 Intake Total 1677.5 / 1677.5 1859.625 / 1859.625 150 / 150 Output Total 1550 / 1550 1075 / 1075 Balance 127.5 / 127.5 784.625 / 784.625 150 / 150 Weight 65.2 kg Intake: IV 1277.5 / 1277.5 1259.625 / 1259.625 150 / 150 1/2 Normal Saline Inj 1,000 ML 465 / 465 @ 70 mls/hr IV.CONT .[id number] RICARDO Rx#:[id number] Sodium Chloride 23.4% Inj 38.5 1009.625 / 1009.625 MEQ In Sterile Water for Inj 1, 000 ML @ 84 mls/hr IV.CONT . Q12H2M RICARDO Rx#:[id number] Flexbumin 25% Inj 100 ML @ 60 200 / 200 200 / 200 100 / 100 mls/hr IV.SIG Q6H RICARDO Rx#: [id number] Diflucan 200 mg Premix Bag 100 200 / 200 ML @ 100 mls/hr IV.SIG Q24H RICARDO Rx#:[id number] Zosyn 3.375 GM Premix 50 ML @ 150 / 150 50 / 50 50 / 50 100 mls/hr IV.SIG Q6H RICARDO Rx#: [id number] Vancomycin Inj 1,250 MG In NS 262.5 / 262.5 Inj 250 ML @ 250 mls/hr IV.SIG Q24H RICARDO Rx#:[id number] Water Bolus Amount 600 / 600 Intake (Blood Product) Amt 400 / 400 Rbc As-3 Leukoreduced Unit 400 / 400 [id number] Output: Stool 300 / 300 300 / 300 Urine Amount (Catheter) 850 / 850 650 / 650 Indwelling Urethral Catheter 850 / 850 650 / 650 Wound Vac Amount 400 / 400 125 / 125 Sacrum 400 / 400 125 / 125 Other: Mode Setting Posterior Sacrum Continuous Continuous Continuous Sacrum Continuous Continuous Continuous Date of Last Bowel Movement 01/15/18 01/16/18 01/16/18 Narrative: GENERAL: Well-nourished, well-developed patient. SKIN: Warm and dry. HEAD: Normocephalic. EYES: No scleral icterus. No injection or drainage. NECK: Supple, trachea midline. No JVD or lymphadenopathy. CARDIOVASCULAR: Regular rate and rhythm without murmurs, gallops, or rubs. RESPIRATORY: Breath sounds equal bilaterally. No accessory muscle use. GASTROINTESTINAL: Abdomen soft, non-tender, nondistended. EXTREMITIES: She has pelvic debridement NEUROLOGICAL: Awake, alert, oriented - Urinary Catheter Management Indwelling Urethral Catheter Cath placed during this visit: yes Reason for continuing: Hourly intake/output Insertion date: 01/13/18 Insertion time: 01:00 1 Cath placed during this visit: yes, but has since been removed by the nurse Urethral indwelling: Yes Reason for continuing: Severe pressure ulcer/wound Insertion date: 12/15/17 Removal date: 01/13/18 Removal time: 01:00 Assessment and Plan - Assessment (1) MARIO (acute kidney injury) Code(s): N17.9 - Acute kidney failure, unspecified Status: Acute (2) Hypernatremia Code(s): E87.0 - Hyperosmolality and hypernatremia Status: Acute (3) Type 2 diabetes mellitus with hyperosmolar nonketotic hyperglycemia Code(s): E11.01 - Type 2 diabetes mellitus with hyperosmolarity with coma Status: Acute (4) Necrotizing fasciitis of pelvic region and thigh Code(s): M72.6 - Necrotizing fasciitis Status: Acute - Plan Patient was requiring frequent surgery and debridement getting IV fluids sodium has improved to 147 creatinine 1.2 Getting albumin 25 g every 6 hourly, free water flushes 200 cc every 4 hours Remains nonoliguric one fourth of normal saline at 84 cc an hour creatinine declined 1.2, potassium has been replaced sodium is improved Patient is having sepsis and being observed in intensive care unit UTIs bacteria Pseudomonas ID is following Zosyn/vancomycin/metronidazole
[2018-01-16] MEDS ORDERED: Midazolam Inj 5 MG/ML 1 ML Vial ONE (18:55)
--- NOTE | 2018-01-16 19:18 | P.PNCC ---
Subjective Subjective Remarks/Hospital Course: Note for 01/05/18: This 52-year-old woman with long-standing uncontrolled diabetes mellitus and severe peripheral arterial disease related to a long-term heavy smoking history was found down at her home and initial blood glucose was 610. Her lower back and buttocks was exquisitely tender and a mid line stage IV sacral decubitus was oozing purulent material and inflamed and the surrounding soft tissue. White count was not elevated but 90% neutrophils. Temperature 97 degrees. Moderately encephalopathic though conversant. X-rays revealed no fractures in the pelvis but CAT scan demonstrated extensive subcutaneous air emanating in both directions left and right from the mid sacral region. This is clearly necrotizing fasciitis or some other gas-forming infection and the woman is critically ill. She received vancomycin, Zosyn, and clindamycin antibiotic therapy as quickly as possible and was transferred to the ICU for ongoing resuscitation. Because of worsening hemodynamic stability she required intubation and mechanical ventilation followed by central line placement on arrival to the ICU. Insulin drip infusion was started in the emergency department and glucose had declined into the low 400s. She was not in ketoacidosis but lactic acid was elevated at 3.1. General surgery and orthopedic surgery were consulted for recommendations and it was felt that this woman was too unstable to tolerate an operative procedure immediately. We continue her ongoing resuscitation and trial in the ICU at this stage. 12/16: Following aggressive resuscitation yesterday for the treatment of severe hyperglycemia, septic shock, respiratory failure, metabolic acidosis, acute kidney injury, the patient went to the operating room with an extensive wide debridement bilateral gluteal and left thigh soft tissue and muscle. Primary antibiotic coverage at this point is vancomycin, cefepime, clindamycin. The patient started to make urine late yesterday afternoon and has continued to acceptable output since. Lactic acidosis is 2.0 this morning but metabolic acidosis persists despite bicarb drip. She remains on vasopressor support and hemodynamically unstable. 12/17: s/p debridement of large nec fasc wound. remains in shock today. also very hypoglycemic requiring multiple D50 amps overnight. 12/18: back in worsening shock. vasopressor support higher. required 2L crystalloid overnight and additional 1L and 500cc albumin today. ivc completely flat on bedside echo. LVEF hyperdynamic. no pericardial effusion. spoken with gen surg. plan to go back early to eval for worsening necrosis. fio2 also up to 100% and peep 10- hypoxic, likely early ARDS. 12/19: clinically doing better. still in shock on vasopressors, but requirements are lower and lactate cleared. Cr slowly uptrending. SVV still 19% today and appears to be volume responsive. gen surgery ordered 2 units prbc for falling hgb in the setting of blood loss with surgical intervention yesterday. fio2 improving. glycemic control also improving. 12/20: Markedly impaired oxygenation persists. Still requiring elevated end expiratory pressure. Nutritional support continues but she remains catabolic. It will be difficult to keep up with her nutritional needs. 12/21: Continued severe sepsis requiring vasopressor support and mechanical ventilation. Oxygenation remains impaired and smoldering metabolic acidosis persists. Despite hemodynamic instability the patient's only hope for survival is with infection source control through further debridement. Clearly a greatly increased risk however for any procedure. 12/22: Persistent septic shock course requiring vasopressor support and regular debridement. Good antibiotic coverage but she continues to require adjustment of ventilator, hemodynamic support drugs, antibiotics, intravenous fluids. Her nutritional status was quite depleted on arrival and continues to deteriorate despite adjuvant nutrition. 12/23: Patient continues septic course. She has developed venous clot throughout her left internal jugular subclavian and axillary vein system. Not a candidate for full anticoagulation because of need for frequent surgical debridement. We will pull out the catheter today and placing In the right subclavian route. 12/24 remains critically ill and septic remains on Jr-Synephrine at 50 mcg/kg/ min. WBC count increasing 20 6K today. Antibiotics have been changed by ID. Diflucan added for Talia UTI. Plan for OR today per surgery 12/25: Went to OR yesterday, s/p Incision, drainage with excisional debridement of back, buttock, thigh, and VAC change. Main septic White count increasing 31, 000 today, remains on pressors vasopressin and Rj-Synephrine. 12/26: Remains critical remains on vasopressin to maintain blood pressure and map above 65, currently off Rj-Synephrine. Remains severely fluid overloaded approximately 20 kg up. Despite pressor use will start IV diuretics to achieve negative fluid balance 12/27: Intubated sedated but more awake follows some commands. Hemoglobin down to 6.4, 2 g dropped, receiving 2 units of PRBC. No obvious bleeding noted. Currently had been weaned off the pressors. Or planned for tomorrow again 12/28: OR today for wound VAC change and I&D, possible tracheostomy. Potassium is 2.6 getting replaced. Hemoglobin stable. Remains off pressors. Urine output almost 8 L with forced diuresis 12/29: Status post OR for wound VAC change in tracheostomy yesterday. Getting for his diuresis urine output more than 4 L in 24 hours. Remains intubated sedated intermittently follows commands. Plan for I&D wound VAC change again on Saturday 12/30: Remains intubated sedated more stable. Urine output remains excellent with diuresis. Plan for OR in a.m. for further I&D and VAC change 12/31: Patient remains intubated plan for OR today with Dr. Muir for further I&D and wound VAC change. Making urine more than 4 L in 24 hours with diuresis. Getting closer to admission weight. Potassium 3.3 getting replacement 01/01: Remains intubated sedated failing CPAP due to low tidal volumes. Status post OR yesterday for the I&D tomorrow planned by general surgery. Urine output 3 L in 24 hours 01/02: Potassium being replaced. Ready for OR today. Return from the OR with stable hemodynamics on mechanical ventilation. 01/03: Attempted spontaneous breathing trials today and converted to T piece. We will continue this method of weaning. Nutrition infusing and well- tolerated. Severity of wound will require a lengthy hospitalization. 01/04: Nasogastric tube is out. She is much more alert and we will try a swallow evaluation before replacing. Contraction alkalosis is developing with diuretics, will add a carbonic anhydrase inhibitor. 01/05: Breathing comfortably on T-piece. Failed swallow eval. Will need to replace nasogastric tube or Dobbhoff for nutrition. 01/06: Alert interactive. Failed swallow eval possibly due to the distortion of the trach cuff. Continue feeding through Dobbhoff tube. Patient is stable to go to floor now. Fentanyl drip converted to fentanyl patch. Adequately diuresed of post edema, discontinue diuretics and replace potassium. After K replaced add lisinopril now that GFR back to normal. 01/07 - 01/13: Patient undergoing care on floor with continuous tube feeding and serial surgical debridements. Wound VAC in place. 01/14: Patient developed temperature of 103 with sustained tachycardia and obtundation. She clearly appears septic. Cultures have been ordered by the floor staff and resuscitation with isotonic crystalloid has begun in the ICU. Her abdomen is soft and her chest x-ray is clear. She has no indwelling lines. The likely culprit is the depths of the wound and/or stool contamination. 01/15: Patient underwent debridement of the lumbar wounds yesterday. She is still requiring vasopressor therapy to support her blood pressure and mechanical ventilation for respiratory failure. She remains critically ill. 01/16: Remains on mechanical ventilation via tracheostomy. Tolerating CPAP trial. Off pressors since yesterday. Objective Vital Signs / I&O: Vital Signs 01/15/18 20:00 01/15/18 21:00 01/15/18 21:16 Temperature 99.5 F Pulse Rate 94 H 95 H 93 H Respiratory Rate 21 21 23 Blood Pressure 119/64 121/68 Pulse Oximetry 100 100 01/15/18 22:00 01/15/18 23:00 01/16/18 00:00 Temperature 98.5 F Pulse Rate 92 H 95 H 91 H Respiratory Rate 23 24 23 Blood Pressure 125/68 121/68 124/71 Pulse Oximetry 100 100 100 01/16/18 00:10 01/16/18 01:00 01/16/18 02:00 Temperature Pulse Rate 95 H 84 85 Respiratory Rate 22 20 21 Blood Pressure 123/65 135/75 Pulse Oximetry 100 100 01/16/18 02:45 01/16/18 03:00 01/16/18 03:15 Temperature Pulse Rate 86 84 87 Respiratory Rate 20 21 21 Blood Pressure 127/73 124/67 133/73 Pulse Oximetry 100 100 100 01/16/18 03:37 01/16/18 03:39 01/16/18 03:45 Temperature Pulse Rate 87 85 Respiratory Rate 19 19 21 Blood Pressure 132/70 Pulse Oximetry 100 100 01/16/18 04:00 01/16/18 04:15 01/16/18 04:30 Temperature 98.5 F Pulse Rate 87 83 84 Respiratory Rate 19 21 21 Blood Pressure 131/73 131/73 135/71 Pulse Oximetry 100 100 100 01/16/18 04:45 01/16/18 05:00 01/16/18 05:15 Temperature Pulse Rate 84 83 82 Respiratory Rate 21 21 21 Blood Pressure 133/70 134/73 132/68 Pulse Oximetry 100 100 100 01/16/18 05:30 01/16/18 05:45 01/16/18 06:00 Temperature Pulse Rate 83 78 86 Respiratory Rate 21 11 L 22 Blood Pressure 123/67 131/73 128/73 Pulse Oximetry 100 100 98 01/16/18 06:15 01/16/18 06:30 01/16/18 07:00 Temperature Pulse Rate 84 83 82 Respiratory Rate 22 23 22 Blood Pressure 130/73 131/74 134/72 Pulse Oximetry 100 100 100 01/16/18 07:15 01/16/18 07:30 01/16/18 07:45 Temperature Pulse Rate 82 78 80 Respiratory Rate 23 21 22 Blood Pressure 134/74 133/75 138/78 Pulse Oximetry 100 100 100 01/16/18 08:00 01/16/18 08:04 01/16/18 08:15 Temperature 98.5 F Pulse Rate 84 84 82 Respiratory Rate 23 21 25 H Blood Pressure 138/76 142/79 H Pulse Oximetry 100 100 01/16/18 08:30 01/16/18 08:45 01/16/18 09:00 Temperature Pulse Rate 81 77 85 Respiratory Rate 23 22 25 H Blood Pressure 139/75 140/76 140/80 Pulse Oximetry 100 100 100 01/16/18 09:15 01/16/18 09:30 01/16/18 09:45 Temperature Pulse Rate 84 79 80 Respiratory Rate 25 H 22 23 Blood Pressure 137/76 125/69 128/74 Pulse Oximetry 100 100 100 01/16/18 10:00 01/16/18 10:15 01/16/18 10:30 Temperature Pulse Rate 81 82 79 Respiratory Rate 22 22 23 Blood Pressure 127/71 140/80 133/73 Pulse Oximetry 100 100 100 01/16/18 10:45 01/16/18 11:00 01/16/18 11:15 Temperature Pulse Rate 80 81 77 Respiratory Rate 23 24 27 H Blood Pressure 135/77 131/70 128/75 Pulse Oximetry 100 100 99 01/16/18 11:16 01/16/18 11:30 01/16/18 11:45 Temperature Pulse Rate 78 80 84 Respiratory Rate 26 H 29 H 28 H Blood Pressure 133/75 134/76 Pulse Oximetry 100 100 100 01/16/18 12:00 01/16/18 15:50 Temperature 98.8 F Pulse Rate 81 84 Respiratory Rate 27 H 30 H Blood Pressure 131/75 Pulse Oximetry 100 100 Intake & Output 01/16/18 01/16/18 01/17/18 06:59 18:59 06:59 Intake Total 1859.625 / 1501.045 7247 / 1090 Output Total 1075 / 1075 1225 / 1225 Balance 784.625 / 784.625 -135 / -135 Weight 65.2 kg Intake: IV 1259.625 / 1259.625 150 / 150 Sodium Chloride 23.4% Inj 38.5 1009.625 / 1009.625 MEQ In Sterile Water for Inj 1, 000 ML @ 84 mls/hr IV.CONT . Q12H2M RICARDO Rx#:[id number] Flexbumin 25% Inj 100 ML @ 60 200 / 200 100 / 100 mls/hr IV.SIG Q6H RICARDO Rx#: [id number] Zosyn 3.375 GM Premix 50 ML @ 50 / 50 50 / 50 100 mls/hr IV.SIG Q6H RICARDO Rx#: [id number] Oral 480 / 480 Tube Irrigant 60 / 60 Water Bolus Amount 600 / 600 400 / 400 Output: Stool 300 / 300 300 / 300 Urine Amount (Catheter) 650 / 650 725 / 725 Indwelling Urethral Catheter 650 / 650 725 / 725 Wound Vac Amount 125 / 125 200 / 200 Sacrum 125 / 125 200 / 200 Other: Mode Setting Posterior Sacrum Continuous Continuous Sacrum Continuous Continuous Date of Last Bowel Movement 01/16/18 01/16/18 Result Diagrams: 01/16/18 05:29 01/16/18 05:29 Objective Remarks: General: Very ill-appearing middle-aged woman, on mechanical ventilation via tracheostomy. Head: Atraumatic, edentulous Neck: Supple, trach site clean, dry. Lungs: Mcrae clear, on mechanical ventilation air movement good bilaterally Heart: Tachycardic rate and regular rhythm. Neck veins are not distended. Abdomen: Soft, no guarding, no peritoneal irritation. Bowel sounds are present. Back: Wound VAC remains in place over lower bilateral lumbar region. Extremities: Warm, well perfused, status post below-knee amputation right side. Skin remains wrinkled. Neurological: Tracheostomy, withdraws 4 limbs to stimulation. Pupils 2 mm, reactive. Tracks with eyes. Assessment and Plan - Problem List (1) Septic shock with acute organ dysfunction due to anaerobic bacteria Code(s): A41.4 - Sepsis due to anaerobes; R65.21 - Severe sepsis with septic shock Status: Acute (2) Acute respiratory failure Code(s): J96.00 - Acute respiratory failure, unspecified whether with hypoxia or hypercapnia Status: Acute (3) Necrotizing fasciitis Code(s): M72.6 - Necrotizing fasciitis Status: Acute (4) Type 2 diabetes mellitus with hyperosmolar nonketotic hyperglycemia Code(s): E11.01 - Type 2 diabetes mellitus with hyperosmolarity with coma Status: Acute (5) MARIO (acute kidney injury) Code(s): N17.9 - Acute kidney failure, unspecified Status: Acute (6) Lactic acidosis Code(s): E87.2 - Acidosis Status: Acute - Assessment and Plan Plan: Assessment: 52yF with large necrotizing soft tissue infection of the lower back and sacrum complicated by septic shock and multiorgan dysfunction. Returns to ICU in florid sepsis, 2 OR yesterday for further debridement of sacral wounds. Plan: Neurological Acute metabolic encephalopathy From sepsis. Cardiovascular Septic Shock- improving Myocardial dysfunction secondary to septic shock Fluid overload Recurrent, check CBC, lactic acid, creatinine kinase, lipase. Respiratory Acute hypoxic and hypercarbic respiratory failure- persistent - s/p Trach in OR 12/28/17. -Mechanical ventilation assist control mode. Endocrinology Diabetes Severe hypoglycemia - Med scale SSI. - Follow potassium and magnesium closely - Exacerbated by sepsis. Hematology/Infectious Disease Septic Shock Necrotizing soft tissue infection - Follow white count and platelet count closely. - Continue daptomycin and Zosyn. Diflucan for fungal coverage. -We will ask surgery to see. GI Acute protein calorie malnutrition- severe - prealbumin 5 on 12/18. severely malnourished. - daily bmp, mg, phos - Tube feeds infusing, tolerated - Follow prealbumin weekly -Arabella shield placed to protect wounds from soilage. Acute kidney injury - Tristan required for hourly urine output and to protect perineal region HEME Left upper extremity DVT - DVT left internal jugular, subclavian, axillary and distal arm veins. - Cannot anticoagulate secondary to blood loss anemia requiring blood transfusion, frequent surgeries Prophylaxis - Pepcid for GI ulcer prophylaxis - SCDs for DVT prophylaxis - Hold chemical DVT prophylaxis until ongoing surgical decisions regarding further debridement are made Lines: PIV Overall impression: This woman was initially critically ill and in septic shock with necrotizing fasciitis emanating from a deep chronic sacral decubitus ulcer. She has required multiple OR trips for I&D and VAC changes. Family request continued aggressive care. She returns to the ICU 01/14 in severe sepsis with encephalopathy and unstable hemodynamics.
[2018-01-16] MEDS: Dextrose 50% in Water 50 ML Vial IV.PUSH PRN (21:11)
[2018-01-17] MEDS: Oral Hygiene Kit OROPHARYNG SCH ×5 (01:25→17:22)
[2018-01-17] MEDS: Insulin NovoLIN Regular Correctional Sugar Inj SQ SCH ×7 (01:25→20:37)
[2018-01-17] MEDS: Sodium Chloride 23.4% Inj 38.5 MEQ in Water for Inj, Sterile 1,000 ML IV.CONT SCH ×4 (02:12→22:23)
[2018-01-17] MEDS: Piperacil/Tazo 3.375 GM Premix 50 ML IV.SIG SCH ×4 (02:12→18:27)
[2018-01-17] MEDS: Albumin Human 25% Inj 100 ML IV.SIG SCH ×4 (05:00→21:31)
[2018-01-17] MEDS: metroNIDAZOLE 500 MG Tablet NG/OG SCH ×3 (06:13→21:31)
[2018-01-17] MEDS: Potassium Bicarbonate 25 MEQ Effervescent Tablet NG/OG SCH ×2 (09:13→20:06)
[2018-01-17] MEDS: Potassium Phosphate 500 MG Soluble Tablet NG/OG SCH ×2 (09:13→20:06)
[2018-01-17] MEDS: hydrALAZINE 50 MG Tablet NG/OG SCH ×4 (09:13→17:23)
[2018-01-17] MEDS: Senna/Docusate Sodium 8.6/50 MG Tablet NG/OG SCH ×2 (09:14→20:07)
[2018-01-17] MEDS: Chlorhexidine 0.12% Oral Kit 15 ML UDC OROPHARYNG SCH ×2 (09:15→20:06)
[2018-01-17] MEDS: Metoprolol Tartrate 50 MG Tablet NG/OG SCH ×2 (09:16→20:06)
[2018-01-17] MEDS: Insulin Detemir Inj 1,000 UNIT/10 ML Vial SQ SCH ×2 (09:16→20:07)
[2018-01-17] MEDS: Lisinopril 5 MG Tablet NG/OG SCH (09:30)
[2018-01-17] MEDS: Lansoprazole ODT 15 MG Tablet NG/OG SCH (09:30)
--- NOTE | 2018-01-17 10:10 | P.PNCC ---
Subjective Subjective Remarks/Hospital Course: Note for 01/05/18: This 52-year-old woman with long-standing uncontrolled diabetes mellitus and severe peripheral arterial disease related to a long-term heavy smoking history was found down at her home and initial blood glucose was 610. Her lower back and buttocks was exquisitely tender and a mid line stage IV sacral decubitus was oozing purulent material and inflamed and the surrounding soft tissue. White count was not elevated but 90% neutrophils. Temperature 97 degrees. Moderately encephalopathic though conversant. X-rays revealed no fractures in the pelvis but CAT scan demonstrated extensive subcutaneous air emanating in both directions left and right from the mid sacral region. This is clearly necrotizing fasciitis or some other gas-forming infection and the woman is critically ill. She received vancomycin, Zosyn, and clindamycin antibiotic therapy as quickly as possible and was transferred to the ICU for ongoing resuscitation. Because of worsening hemodynamic stability she required intubation and mechanical ventilation followed by central line placement on arrival to the ICU. Insulin drip infusion was started in the emergency department and glucose had declined into the low 400s. She was not in ketoacidosis but lactic acid was elevated at 3.1. General surgery and orthopedic surgery were consulted for recommendations and it was felt that this woman was too unstable to tolerate an operative procedure immediately. We continue her ongoing resuscitation and trial in the ICU at this stage. 12/16: Following aggressive resuscitation yesterday for the treatment of severe hyperglycemia, septic shock, respiratory failure, metabolic acidosis, acute kidney injury, the patient went to the operating room with an extensive wide debridement bilateral gluteal and left thigh soft tissue and muscle. Primary antibiotic coverage at this point is vancomycin, cefepime, clindamycin. The patient started to make urine late yesterday afternoon and has continued to acceptable output since. Lactic acidosis is 2.0 this morning but metabolic acidosis persists despite bicarb drip. She remains on vasopressor support and hemodynamically unstable. 12/17: s/p debridement of large nec fasc wound. remains in shock today. also very hypoglycemic requiring multiple D50 amps overnight. 12/18: back in worsening shock. vasopressor support higher. required 2L crystalloid overnight and additional 1L and 500cc albumin today. ivc completely flat on bedside echo. LVEF hyperdynamic. no pericardial effusion. spoken with gen surg. plan to go back early to eval for worsening necrosis. fio2 also up to 100% and peep 10- hypoxic, likely early ARDS. 12/19: clinically doing better. still in shock on vasopressors, but requirements are lower and lactate cleared. Cr slowly uptrending. SVV still 19% today and appears to be volume responsive. gen surgery ordered 2 units prbc for falling hgb in the setting of blood loss with surgical intervention yesterday. fio2 improving. glycemic control also improving. 12/20: Markedly impaired oxygenation persists. Still requiring elevated end expiratory pressure. Nutritional support continues but she remains catabolic. It will be difficult to keep up with her nutritional needs. 12/21: Continued severe sepsis requiring vasopressor support and mechanical ventilation. Oxygenation remains impaired and smoldering metabolic acidosis persists. Despite hemodynamic instability the patient's only hope for survival is with infection source control through further debridement. Clearly a greatly increased risk however for any procedure. 12/22: Persistent septic shock course requiring vasopressor support and regular debridement. Good antibiotic coverage but she continues to require adjustment of ventilator, hemodynamic support drugs, antibiotics, intravenous fluids. Her nutritional status was quite depleted on arrival and continues to deteriorate despite adjuvant nutrition. 12/23: Patient continues septic course. She has developed venous clot throughout her left internal jugular subclavian and axillary vein system. Not a candidate for full anticoagulation because of need for frequent surgical debridement. We will pull out the catheter today and placing In the right subclavian route. 12/24 remains critically ill and septic remains on Rj-Synephrine at 50 mcg/kg/ min. WBC count increasing 20 6K today. Antibiotics have been changed by ID. Diflucan added for Talia UTI. Plan for OR today per surgery 12/25: Went to OR yesterday, s/p Incision, drainage with excisional debridement of back, buttock, thigh, and VAC change. Main septic White count increasing 31, 000 today, remains on pressors vasopressin and Rj-Synephrine. 12/26: Remains critical remains on vasopressin to maintain blood pressure and map above 65, currently off Rj-Synephrine. Remains severely fluid overloaded approximately 20 kg up. Despite pressor use will start IV diuretics to achieve negative fluid balance 12/27: Intubated sedated but more awake follows some commands. Hemoglobin down to 6.4, 2 g dropped, receiving 2 units of PRBC. No obvious bleeding noted. Currently had been weaned off the pressors. Or planned for tomorrow again 12/28: OR today for wound VAC change and I&D, possible tracheostomy. Potassium is 2.6 getting replaced. Hemoglobin stable. Remains off pressors. Urine output almost 8 L with forced diuresis 12/29: Status post OR for wound VAC change in tracheostomy yesterday. Getting for his diuresis urine output more than 4 L in 24 hours. Remains intubated sedated intermittently follows commands. Plan for I&D wound VAC change again on Saturday 12/30: Remains intubated sedated more stable. Urine output remains excellent with diuresis. Plan for OR in a.m. for further I&D and VAC change 12/31: Patient remains intubated plan for OR today with Dr. Muir for further I&D and wound VAC change. Making urine more than 4 L in 24 hours with diuresis. Getting closer to admission weight. Potassium 3.3 getting replacement 01/01: Remains intubated sedated failing CPAP due to low tidal volumes. Status post OR yesterday for the I&D tomorrow planned by general surgery. Urine output 3 L in 24 hours 01/02: Potassium being replaced. Ready for OR today. Return from the OR with stable hemodynamics on mechanical ventilation. 01/03: Attempted spontaneous breathing trials today and converted to T piece. We will continue this method of weaning. Nutrition infusing and well- tolerated. Severity of wound will require a lengthy hospitalization. 01/04: Nasogastric tube is out. She is much more alert and we will try a swallow evaluation before replacing. Contraction alkalosis is developing with diuretics, will add a carbonic anhydrase inhibitor. 01/05: Breathing comfortably on T-piece. Failed swallow eval. Will need to replace nasogastric tube or Dobbhoff for nutrition. 01/06: Alert interactive. Failed swallow eval possibly due to the distortion of the trach cuff. Continue feeding through Dobbhoff tube. Patient is stable to go to floor now. Fentanyl drip converted to fentanyl patch. Adequately diuresed of post edema, discontinue diuretics and replace potassium. After K replaced add lisinopril now that GFR back to normal. 01/07 - 01/13: Patient undergoing care on floor with continuous tube feeding and serial surgical debridements. Wound VAC in place. 01/14: Patient developed temperature of 103 with sustained tachycardia and obtundation. She clearly appears septic. Cultures have been ordered by the floor staff and resuscitation with isotonic crystalloid has begun in the ICU. Her abdomen is soft and her chest x-ray is clear. She has no indwelling lines. The likely culprit is the depths of the wound and/or stool contamination. 01/15: Patient underwent debridement of the lumbar wounds yesterday. She is still requiring vasopressor therapy to support her blood pressure and mechanical ventilation for respiratory failure. She remains critically ill. 01/16: Remains on mechanical ventilation via tracheostomy. Tolerating CPAP trial. Off pressors since yesterday. 01/17: Remains on mechanical ventilation via tracheostomy. Tolerating CPAP trial with pressure support +10 however gets tachypneic on lowering pressor support. Objective Vital Signs / I&O: Vital Signs 01/16/18 10:15 01/16/18 10:30 01/16/18 10:45 Temperature Pulse Rate 82 79 80 Respiratory Rate 22 23 23 Blood Pressure 140/80 133/73 135/77 Pulse Oximetry 100 100 100 01/16/18 11:00 01/16/18 11:15 01/16/18 11:16 Temperature Pulse Rate 81 77 78 Respiratory Rate 24 27 H 26 H Blood Pressure 131/70 128/75 Pulse Oximetry 100 99 100 01/16/18 11:30 01/16/18 11:45 01/16/18 12:00 Temperature 98.8 F Pulse Rate 80 84 81 Respiratory Rate 29 H 28 H 27 H Blood Pressure 133/75 134/76 131/75 Pulse Oximetry 100 100 100 01/16/18 15:50 01/16/18 18:45 01/16/18 19:00 Temperature Pulse Rate 84 84 86 Respiratory Rate 30 H 29 H 30 H Blood Pressure 125/69 Pulse Oximetry 100 100 100 01/16/18 19:15 01/16/18 19:30 01/16/18 19:45 Temperature Pulse Rate 85 79 81 Respiratory Rate 35 H 35 H 34 H Blood Pressure 123/69 124/66 125/71 Pulse Oximetry 100 100 100 01/16/18 20:00 01/16/18 20:15 01/16/18 20:16 Temperature 98.5 F Pulse Rate 72 78 81 Respiratory Rate 30 H 34 H 22 Blood Pressure 124/69 124/69 Pulse Oximetry 100 100 01/16/18 20:17 01/16/18 20:30 01/16/18 20:45 Temperature Pulse Rate 75 79 Respiratory Rate 25 H 24 30 H Blood Pressure 125/67 125/69 Pulse Oximetry 100 100 01/16/18 21:00 01/16/18 21:15 01/16/18 21:30 Temperature Pulse Rate 77 80 78 Respiratory Rate 26 H 21 23 Blood Pressure 125/70 124/71 130/71 Pulse Oximetry 100 100 100 01/16/18 21:45 01/16/18 22:00 01/16/18 22:15 Temperature Pulse Rate 75 82 79 Respiratory Rate 22 24 21 Blood Pressure 132/72 114/58 L 124/67 Pulse Oximetry 100 100 100 01/16/18 22:30 01/16/18 22:45 01/16/18 23:00 Temperature Pulse Rate 75 74 73 Respiratory Rate 26 H 19 20 Blood Pressure 121/69 122/70 123/70 Pulse Oximetry 100 100 100 01/16/18 23:15 01/16/18 23:30 01/16/18 23:45 Temperature Pulse Rate 73 72 73 Respiratory Rate 21 20 21 Blood Pressure 114/62 125/70 125/71 Pulse Oximetry 100 100 100 01/16/18 23:48 01/17/18 00:00 01/17/18 00:15 Temperature Pulse Rate 73 69 71 Respiratory Rate 21 23 22 Blood Pressure 124/72 120/66 Pulse Oximetry 100 100 100 01/17/18 00:30 01/17/18 00:45 01/17/18 01:00 Temperature Pulse Rate 72 72 68 Respiratory Rate 21 21 24 Blood Pressure 124/71 127/68 129/68 Pulse Oximetry 100 100 100 01/17/18 01:15 01/17/18 01:30 01/17/18 01:45 Temperature Pulse Rate 69 73 71 Respiratory Rate 22 20 21 Blood Pressure 128/67 128/70 123/71 Pulse Oximetry 100 100 100 01/17/18 02:00 01/17/18 02:15 01/17/18 02:30 Temperature Pulse Rate 74 72 68 Respiratory Rate 20 21 20 Blood Pressure 130/74 119/70 124/73 Pulse Oximetry 100 100 100 01/17/18 03:00 01/17/18 03:15 01/17/18 04:00 Temperature 98.5 F Pulse Rate 73 69 70 Respiratory Rate 24 21 Blood Pressure 134/65 129/71 Pulse Oximetry 100 100 100 01/17/18 04:05 01/17/18 04:12 01/17/18 05:00 Temperature Pulse Rate 71 78 Respiratory Rate 20 Blood Pressure 139/74 Pulse Oximetry 100 100 100 01/17/18 05:05 01/17/18 08:21 01/17/18 08:30 Temperature Pulse Rate 75 80 Respiratory Rate 20 22 Blood Pressure 135/66 Pulse Oximetry 100 100 Intake & Output 01/16/18 01/17/18 01/17/18 18:59 06:59 18:59 Intake Total 1090 / 1090 2342.625 / 2342.625 Output Total 1225 / 1225 1250 / 1250 Balance -135 / -135 1092.625 / 1092.625 Weight 66.2 kg Intake: IV 150 / 150 1459.625 / 1459.625 Sodium Chloride 23.4% Inj 38.5 1009.625 / 1009.625 MEQ In Sterile Water for Inj 1, 000 ML @ 84 mls/hr IV.CONT . Q12H2M RICARDO Rx#:[id number] Flexbumin 25% Inj 100 ML @ 60 100 / 100 300 / 300 mls/hr IV.SIG Q6H RICARDO Rx#: [id number] Zosyn 3.375 GM Premix 50 ML @ 50 / 50 150 / 150 100 mls/hr IV.SIG Q6H RICARDO Rx#: [id number] Oral 480 / 480 Tube Feeding 283 / 283 Tube Irrigant 60 / 60 Water Bolus Amount 400 / 400 600 / 600 Output: Stool 300 / 300 200 / 200 Urine Amount (Catheter) 725 / 725 800 / 800 Indwelling Urethral Catheter 725 / 725 800 / 800 Wound Vac Amount 200 / 200 250 / 250 Sacrum 200 / 200 250 / 250 Other: Mode Setting Posterior Sacrum Continuous Continuous Sacrum Continuous Continuous Date of Last Bowel Movement 01/16/18 01/17/18 Result Diagrams: 01/16/18 05:29 01/17/18 04:57 Objective Remarks: General: Very ill-appearing middle-aged woman, on mechanical ventilation via tracheostomy. Head: Atraumatic, edentulous Neck: Supple, trach site clean, dry. Lungs: Mcrae clear, on mechanical ventilation air movement good bilaterally Heart: Tachycardic rate and regular rhythm. Neck veins are not distended. Abdomen: Soft, no guarding, no peritoneal irritation. Bowel sounds are present. Back: Wound VAC remains in place over lower bilateral lumbar region. Extremities: Warm, well perfused, status post below-knee amputation right side. Skin remains wrinkled. Neurological: Tracheostomy, withdraws 4 limbs to stimulation. Pupils 2 mm, reactive. Tracks with eyes. Assessment and Plan - Problem List (1) Septic shock with acute organ dysfunction due to anaerobic bacteria Code(s): A41.4 - Sepsis due to anaerobes; R65.21 - Severe sepsis with septic shock Status: Acute (2) Acute respiratory failure Code(s): J96.00 - Acute respiratory failure, unspecified whether with hypoxia or hypercapnia Status: Acute (3) Necrotizing fasciitis Code(s): M72.6 - Necrotizing fasciitis Status: Acute (4) Type 2 diabetes mellitus with hyperosmolar nonketotic hyperglycemia Code(s): E11.01 - Type 2 diabetes mellitus with hyperosmolarity with coma Status: Acute (5) MARIO (acute kidney injury) Code(s): N17.9 - Acute kidney failure, unspecified Status: Acute (6) Lactic acidosis Code(s): E87.2 - Acidosis Status: Acute - Assessment and Plan Plan: Assessment: 52yF with large necrotizing soft tissue infection of the lower back and sacrum complicated by septic shock and multiorgan dysfunction. Returns to ICU in florid sepsis Plan: Neurological Acute metabolic encephalopathy From sepsis. Cardiovascular Septic Shock- improving Myocardial dysfunction secondary to septic shock Fluid overload Levophed for pressor support as needed. Respiratory Acute hypoxic and hypercarbic respiratory failure- persistent - s/p Trach in OR 12/28/17. -Mechanical ventilation assist control mode. Endocrinology Diabetes Severe hypoglycemia - Med scale SSI. - Follow potassium and magnesium closely - Exacerbated by sepsis. Hematology/Infectious Disease Septic Shock Necrotizing soft tissue infection - Follow white count and platelet count closely. - Continue daptomycin and Zosyn. Diflucan for fungal coverage. -We will ask surgery to see. GI Acute protein calorie malnutrition- severe - prealbumin 5 on 12/18. severely malnourished. - daily bmp, mg, phos - Tube feeds infusing, tolerated - Follow prealbumin weekly -Dignishield placed to protect wounds from soilage. Acute kidney injury - Tristan required for hourly urine output and to protect perineal region HEME Left upper extremity DVT - DVT left internal jugular, subclavian, axillary and distal arm veins. - Cannot anticoagulate secondary to blood loss anemia requiring blood transfusion, frequent surgeries Prophylaxis - Pepcid for GI ulcer prophylaxis - SCDs for DVT prophylaxis - chemical DVT prophylaxis with lovenox Lines: PIV Overall impression: This woman was initially critically ill and in septic shock with necrotizing fasciitis emanating from a deep chronic sacral decubitus ulcer. She has required multiple OR trips for I&D and VAC changes. Family request continued aggressive care. She returns to the ICU 01/14 in severe sepsis with encephalopathy and unstable hemodynamics.
[2018-01-17] MEDS: Collagenase Oint 30 GM Tube TOPICAL SCH (10:41)
--- NOTE | 2018-01-17 12:02 | P.PNID ---
Subjective Remarks: Patient transferred to [facility] [place] with respiratory distress, fever and altered mental status. Tachypneic with increased respiratory rate and tachycardic. She is awake and alert. Mouthing words. Yes no answers. However appears appropriate. Afebrile. Sputum and urine culture have pseudomonas. This is a 52-year-old white female who was brought to the emergency department after she fell at home. The patient was noted to have profound weakness. She was evaluated in the emergency department and at that time had normal temperature and white blood cell count was also normal. She underwent CT scan of the abdomen and pelvis that showed extensive subcutaneous and soft tissue gas bilaterally with the left greater than right, most severe in the left gluteal region and extending into the proximal posterior thigh soft tissue and air-fluid dissecting through the gluteal musculature. Antibiotics: Diflucan. Piperacillin/tazobactam Vancomycin Flagyl Allergies/Adverse Reactions: Allergies No Known Allergies Allergy (Verified 12/15/17 07:54) Objective Vital Signs 01/16/18 12:00 01/16/18 15:50 01/16/18 18:45 Temperature 98.8 F Pulse Rate 81 84 84 Respiratory Rate 27 H 30 H 29 H Blood Pressure 131/75 Pulse Oximetry 100 100 100 01/16/18 19:00 01/16/18 19:15 01/16/18 19:30 Temperature Pulse Rate 86 85 79 Respiratory Rate 30 H 35 H 35 H Blood Pressure 125/69 123/69 124/66 Pulse Oximetry 100 100 100 01/16/18 19:45 01/16/18 20:00 01/16/18 20:15 Temperature 98.5 F Pulse Rate 81 72 78 Respiratory Rate 34 H 30 H 34 H Blood Pressure 125/71 124/69 124/69 Pulse Oximetry 100 100 100 01/16/18 20:16 01/16/18 20:17 01/16/18 20:30 Temperature Pulse Rate 81 75 Respiratory Rate 22 25 H 24 Blood Pressure 125/67 Pulse Oximetry 100 01/16/18 20:45 01/16/18 21:00 01/16/18 21:15 Temperature Pulse Rate 79 77 80 Respiratory Rate 30 H 26 H 21 Blood Pressure 125/69 125/70 124/71 Pulse Oximetry 100 100 100 01/16/18 21:30 01/16/18 21:45 01/16/18 22:00 Temperature Pulse Rate 78 75 82 Respiratory Rate 23 22 24 Blood Pressure 130/71 132/72 114/58 L Pulse Oximetry 100 100 100 01/16/18 22:15 01/16/18 22:30 01/16/18 22:45 Temperature Pulse Rate 79 75 74 Respiratory Rate 21 26 H 19 Blood Pressure 124/67 121/69 122/70 Pulse Oximetry 100 100 100 01/16/18 23:00 01/16/18 23:15 01/16/18 23:30 Temperature Pulse Rate 73 73 72 Respiratory Rate 20 21 20 Blood Pressure 123/70 114/62 125/70 Pulse Oximetry 100 100 100 01/16/18 23:45 01/16/18 23:48 01/17/18 00:00 Temperature Pulse Rate 73 73 69 Respiratory Rate 21 21 23 Blood Pressure 125/71 124/72 Pulse Oximetry 100 100 100 01/17/18 00:15 01/17/18 00:30 01/17/18 00:45 Temperature Pulse Rate 71 72 72 Respiratory Rate 22 21 21 Blood Pressure 120/66 124/71 127/68 Pulse Oximetry 100 100 100 01/17/18 01:00 01/17/18 01:15 01/17/18 01:30 Temperature Pulse Rate 68 69 73 Respiratory Rate 24 22 20 Blood Pressure 129/68 128/67 128/70 Pulse Oximetry 100 100 100 01/17/18 01:45 01/17/18 02:00 01/17/18 02:15 Temperature Pulse Rate 71 74 72 Respiratory Rate 21 20 21 Blood Pressure 123/71 130/74 119/70 Pulse Oximetry 100 100 100 01/17/18 02:30 01/17/18 03:00 01/17/18 03:15 Temperature Pulse Rate 68 73 69 Respiratory Rate 20 24 21 Blood Pressure 124/73 134/65 129/71 Pulse Oximetry 100 100 100 01/17/18 04:00 01/17/18 04:05 01/17/18 04:12 Temperature 98.5 F Pulse Rate 70 71 Respiratory Rate 20 Blood Pressure 139/74 Pulse Oximetry 100 100 100 01/17/18 05:00 01/17/18 05:05 01/17/18 06:00 Temperature Pulse Rate 78 75 80 Respiratory Rate Blood Pressure 135/66 Pulse Oximetry 100 100 100 01/17/18 06:05 01/17/18 07:00 01/17/18 07:05 Temperature Pulse Rate 78 78 84 Respiratory Rate Blood Pressure 155/87 H 144/78 H Pulse Oximetry 100 100 100 01/17/18 08:00 01/17/18 08:05 01/17/18 08:21 Temperature 99.1 F Pulse Rate 78 81 80 Respiratory Rate 20 Blood Pressure 141/78 H 141/78 H Pulse Oximetry 100 100 01/17/18 08:30 01/17/18 09:00 01/17/18 09:05 Temperature Pulse Rate 83 85 Respiratory Rate 22 Blood Pressure 137/77 Pulse Oximetry 100 100 100 01/17/18 10:00 01/17/18 10:05 01/17/18 11:00 Temperature Pulse Rate 83 81 90 Respiratory Rate Blood Pressure 143/77 H Pulse Oximetry 100 100 100 01/17/18 11:05 Temperature Pulse Rate 93 H Respiratory Rate Blood Pressure 131/73 Pulse Oximetry 100 Intake & Output 01/16/18 01/17/18 01/17/18 18:59 06:59 18:59 Intake Total 1090 / 1090 2342.625 / 2342.625 1632.5 / 1632.5 Output Total 1225 / 1225 1250 / 1250 Balance -135 / -135 1092.625 / 5513.740 9010.5 / 1632.5 Weight 66.2 kg Intake: IV 150 / 150 1459.625 / 5926.454 4235.5 / 1632.5 LR 1000 mL Inj 1,000 ML @ 50 1000 / 1000 mls/hr IV.CONT .Q20H [facility] Rx#: [id number] Neosynephrine Inj 40 MG In D5W 20 / 20 Inj 496 ML @ 40 MCG/MIN 30 mls/ hr IV.CONT TITRATE PRN Rx#: [id number] Sodium Chloride 23.4% Inj 38.5 1009.625 / 1009.625 MEQ In Sterile Water for Inj 1, 000 ML @ 84 mls/hr IV.CONT . Q12H2M [facility] Rx#:[id number] Flexbumin 25% Inj 100 ML @ 60 100 / 100 300 / 300 100 / 100 mls/hr IV.SIG Q6H [facility] Rx#: [id number] Diflucan 200 mg Premix Bag 100 200 / 200 ML @ 100 mls/hr IV.SIG Q24H [facility] Rx#:[id number] Zosyn 3.375 GM Premix 50 ML @ 50 / 50 150 / 150 50 / 50 100 mls/hr IV.SIG Q6H [facility] Rx#: [id number] Vancomycin Inj 1,250 MG In NS 262.5 / 262.5 Inj 250 ML @ 250 mls/hr IV.SIG Q24H [facility] Rx#:[id number] Oral 480 / 480 Tube Feeding 283 / 283 Tube Irrigant 60 / 60 Water Bolus Amount 400 / 400 600 / 600 Output: Stool 300 / 300 200 / 200 Urine Amount (Catheter) 725 / 725 800 / 800 Indwelling Urethral Catheter 725 / 725 800 / 800 Wound Vac Amount 200 / 200 250 / 250 Sacrum 200 / 200 250 / 250 Other: Mode Setting Posterior Sacrum Continuous Continuous Continuous Sacrum Continuous Continuous Continuous Date of Last Bowel Movement 01/16/18 01/17/18 01/14/18 09:24 Sputum - Endotracheal Gram Stain - Final 01/14/18 09:24 Sputum - Endotracheal Sputum Culture - Final Pseudomonas aeruginosa 01/14/18 10:30 Blood - Peripheral Aerobic Blood Culture - Preliminary No growth in 3 days 01/14/18 10:30 Blood - Peripheral Anaerobic Blood Culture - Preliminary No growth in 3 days 01/14/18 10:35 Blood - Peripheral Aerobic Blood Culture - Preliminary No growth in 3 days 01/14/18 10:35 Blood - Peripheral Anaerobic Blood Culture - Preliminary No growth in 3 days 01/14/18 16:00 Catheterized Urine Urine Culture - Final Pseudomonas aeruginosa 12/24/17 12:20 Tissue - Buttock Acid Fast Bacilli Smear - Final No acid fast bacilli seen 12/24/17 12:20 Tissue - Buttock Mycobacterial Culture - Preliminary No growth in 3 weeks 12/24/17 12:20 Tissue - Buttock Fungal Smear - Final Rare budding yeast 12/24/17 12:20 Tissue - Buttock Fungal Culture - Final Talia albicans Talia tropicalis Lab - Hematology Results 01/16/18 05:29 WBC 15.3 H RBC 2.43 L Hgb 7.4 L Hct 22.1 L MCV 91.0 MCH 30.4 MCHC 33.4 RDW 19.7 H Plt Count 214 MPV 11.5 H Neut % (Auto) 81.6 H Lymph % (Auto) 11.4 [place] % (Auto) 4.0 Eos % (Auto) 2.1 Baso % (Auto) 0.9 Neut # (Auto) 12.5 H Lymph # (Auto) 1.7 [place] # (Auto) 0.6 Eos # (Auto) 0.3 Baso # (Auto) 0.1 WBC Differential . Differential Comment Auto diff final Lab - Chemistry Results 01/15/18 01/15/18 01/15/18 11:52 16:51 20:38 Sodium Potassium Chloride Carbon Dioxide Anion Gap BUN Creatinine Estimated GFR POC Glucose 290 H 253 H 209 H Random Glucose Calcium 01/16/18 01/16/18 01/16/18 01:35 04:36 05:29 Sodium 147 H Potassium 3.1 L D Chloride 116 H Carbon Dioxide 22.1 Anion Gap 9 BUN 59 H Creatinine 1.24 H Estimated GFR 45 L POC Glucose 192 H 183 H Random Glucose 169 H Calcium 7.8 L 01/16/18 01/16/18 01/16/18 09:07 14:06 16:43 Sodium Potassium Chloride Carbon Dioxide Anion Gap BUN Creatinine Estimated GFR POC Glucose 174 H 113 H 80 Random Glucose Calcium 01/16/18 01/16/18 01/16/18 20:38 20:45 22:42 Sodium Potassium Chloride Carbon Dioxide Anion Gap BUN Creatinine Estimated GFR POC Glucose 301 H 69 144 H Random Glucose Calcium 01/17/18 01/17/18 01/17/18 01:18 04:57 05:19 Sodium Potassium Chloride Carbon Dioxide Anion Gap BUN Creatinine 0.92 Estimated GFR 64 L POC Glucose 108 117 H Random Glucose Calcium 01/17/18 09:06 Sodium Potassium Chloride Carbon Dioxide Anion Gap BUN Creatinine Estimated GFR POC Glucose 154 H Random Glucose Calcium Imaging: ITS Impressions Femur X-Ray 12/15/17 07:05 CONCLUSION: No fracture is identified. There is extensive soft tissue air in the right gluteal region and extending into the proximal and mid posterior thigh. The soft tissue air suggests an open wound. Pelvis X-Ray 12/15/17 07:05 CONCLUSION: No fracture is identified. However, there is extensive soft tissue air in the left gluteal region and left proximal thigh. Pelvis CT 12/15/17 07:52 CONCLUSION: 1. No fracture is identified. 2. Extensive subcutaneous and soft tissue gas bilaterally, left greater than right. It is most severe in the left gluteal region and extends into the proximal posterior thigh. The soft tissue air dissects through the gluteal musculature. There is adjacent subcutaneous edema. Foot X-Ray 12/18/17 00:00 CONCLUSION: Remote small avulsion fracture at the fifth toe. No acute bony abnormality. Venous Doppler Study 12/22/17 00:00 CONCLUSION: Extensive deep vein thrombosis of the left upper extremity. Abdomen X-Ray 01/08/18 00:08 CONCLUSION: Feeding tube tip is in the region of the distal stomach Chest X-Ray 01/14/18 00:00 CONCLUSION: 1. Tubes and lines, as above. 2. Slight improved aeration of the lower lung zones with persistent mild patchy airspace disease and probable trace left pleural effusion. Physical Exam: PHYSICAL EXAMINATION: GENERAL: Awake. No distress. HEENT: Pale sclera. No icterus. NECK: Supple. No adenopathy or swelling. LUNGS: Decreased breath sounds. Scattered rhonchi. HEART: irregular S1 and S2. 1-2/6 systolic murmur at the left sternal border. ABDOMEN: Bowel sounds present, soft. BACK: Surgical wound post debridement across the lower back, buttock and thigh. Vac in place. EXTREMITIES: No clubbing, no cyanosis or edema. abrasion with dry necrotic changes at left dorsal toes 2-4. SKIN: No diffuse rash. Scattered ecchymotic lesions. NEUROLOGIC: Unable to assess. PSYCHIATRIC: Calm. Assessment and Plan - Plan IMPRESSION: 1. Necrotizing fasciitis of the back, buttock and thigh. Talia albicans and Talia tropicalis. 2. Septic shock. Responded to broad-spectrum antibiotics. 3. Acute respiratory failure. 4. Chronic kidney disease. 5. Leukocytosis. Improved. 6. UTI - pseudomonas. 7. New episode of sepsis. 8. PNA pseudomonas. Probable aspiration. 9. UTI due to pseudomonas aeruginosa. RECOMMENDATIONS: 1. Continue Diflucan. 2. Continue Flagyl p.o. empiric anaerobic coverage. 3. Stop vancomycin. 4. Continue Zosyn.
[2018-01-17] MEDS ORDERED: Pharmacy Ordered Lab Info OTHER ONE (12:45)
--- NOTE | 2018-01-17 14:21 | P.PNPAL ---
Reason for Visit Reason for visit: a. To assist with evaluation and management of symptoms including: dyspnea, debility, pain b. To assist medical decision maker(s) with: better understanding of current medical conditions; weighing benefits/burdens of medical treatment options; making medical treatment decisions. Subjective Subjective/Interval History: Patient seen and examined in ICU. No family at bedside. Nurse at bedside during my visit. Patient was transferred to intensive care unit 01/14 after Dk was called for probable sepsis (she was febrile with temp 103, tachypneic with RR 30-40, hypoxic on FiO2 80% via t-piece and unresponsive). She has remained stable in ICU. On CPAP during my visit, FiO2 35%. Repeat BC no growth x 3 days, urine and sputum cultures positive pseudomonas. WBC has decreased to 15.3, hemoglobin stable 7.4, platelets 214. Creatinine 0.92. Tmax 99.1. HR 90. RR 20s. Patient is awake and alert. She is communicating by mouthing words (most of which I am able to understand) and nodding yes/no. She seems to be answering questions appropriately. She denies shortness of breath. Nods yes to pain in her back, nods no to pain in her stomach or legs. Rates pain 5/10. She denies anxiety, nausea or other symptoms. When asked if she wants a medical update, she nods yes. I explained she was transferred to ICU for infection/ sepsis. Review concern from ongoing wound infection. I explained the concern that stool continues to contaminate/ infect the wound and that the general surgery team has recommends a diverting colostomy , she strongly shakes head no. Explore that might be one of the few ways to prevent recurrent infection from her severe wounds/stool. She again strongly nods no. Attempt to explore that she remains very sick despite multiple procedures, ask if she would not want any thing else done, to just be comfortable. She does not nod yes or no. I also attempted to ask her about a feeding tube, she does not answer. They when I ask about CODE status she indicates nodding yes she would want chest compressions, shock, ACLS and vent. Family/Friend Interactions: No family present during my visit, has continued to desires aggressive care including FULL CODE. Advance Directives Living Will: Never completed Health Care Surrogate: Never completed Health Care Surrogate Name and Number: HCP Tyrone Middleton Documented care wishes:: No known documented care wishes have been completed Significant change in goals:: FULL CODE. Goals remain aggressive. Patient does not want colostomy. Objective Vital Signs: Vital Signs 01/16/18 15:50 01/16/18 18:45 01/16/18 19:00 Temperature Pulse Rate 84 84 86 Respiratory Rate 30 H 29 H 30 H Blood Pressure 125/69 Pulse Oximetry 100 100 100 01/16/18 19:15 01/16/18 19:30 01/16/18 19:45 Temperature Pulse Rate 85 79 81 Respiratory Rate 35 H 35 H 34 H Blood Pressure 123/69 124/66 125/71 Pulse Oximetry 100 100 100 01/16/18 20:00 01/16/18 20:15 01/16/18 20:16 Temperature 98.5 F Pulse Rate 72 78 81 Respiratory Rate 30 H 34 H 22 Blood Pressure 124/69 124/69 Pulse Oximetry 100 100 01/16/18 20:17 01/16/18 20:30 01/16/18 20:45 Temperature Pulse Rate 75 79 Respiratory Rate 25 H 24 30 H Blood Pressure 125/67 125/69 Pulse Oximetry 100 100 01/16/18 21:00 01/16/18 21:15 01/16/18 21:30 Temperature Pulse Rate 77 80 78 Respiratory Rate 26 H 21 23 Blood Pressure 125/70 124/71 130/71 Pulse Oximetry 100 100 100 01/16/18 21:45 01/16/18 22:00 01/16/18 22:15 Temperature Pulse Rate 75 82 79 Respiratory Rate 22 24 21 Blood Pressure 132/72 114/58 L 124/67 Pulse Oximetry 100 100 100 01/16/18 22:30 01/16/18 22:45 01/16/18 23:00 Temperature Pulse Rate 75 74 73 Respiratory Rate 26 H 19 20 Blood Pressure 121/69 122/70 123/70 Pulse Oximetry 100 100 100 01/16/18 23:15 01/16/18 23:30 01/16/18 23:45 Temperature Pulse Rate 73 72 73 Respiratory Rate 21 20 21 Blood Pressure 114/62 125/70 125/71 Pulse Oximetry 100 100 100 01/16/18 23:48 01/17/18 00:00 01/17/18 00:15 Temperature Pulse Rate 73 69 71 Respiratory Rate 21 23 22 Blood Pressure 124/72 120/66 Pulse Oximetry 100 100 100 01/17/18 00:30 01/17/18 00:45 01/17/18 01:00 Temperature Pulse Rate 72 72 68 Respiratory Rate 21 21 24 Blood Pressure 124/71 127/68 129/68 Pulse Oximetry 100 100 100 01/17/18 01:15 01/17/18 01:30 01/17/18 01:45 Temperature Pulse Rate 69 73 71 Respiratory Rate 22 20 21 Blood Pressure 128/67 128/70 123/71 Pulse Oximetry 100 100 100 01/17/18 02:00 01/17/18 02:15 01/17/18 02:30 Temperature Pulse Rate 74 72 68 Respiratory Rate 20 21 20 Blood Pressure 130/74 119/70 124/73 Pulse Oximetry 100 100 100 01/17/18 03:00 01/17/18 03:15 01/17/18 04:00 Temperature 98.5 F Pulse Rate 73 69 70 Respiratory Rate 24 21 Blood Pressure 134/65 129/71 Pulse Oximetry 100 100 100 01/17/18 04:05 01/17/18 04:12 01/17/18 05:00 Temperature Pulse Rate 71 78 Respiratory Rate 20 Blood Pressure 139/74 Pulse Oximetry 100 100 100 01/17/18 05:05 01/17/18 06:00 01/17/18 06:05 Temperature Pulse Rate 75 80 78 Respiratory Rate Blood Pressure 135/66 155/87 H Pulse Oximetry 100 100 100 01/17/18 07:00 01/17/18 07:05 01/17/18 08:00 Temperature 99.1 F Pulse Rate 78 84 78 Respiratory Rate Blood Pressure 144/78 H 141/78 H Pulse Oximetry 100 100 100 01/17/18 08:05 01/17/18 08:21 01/17/18 08:30 Temperature Pulse Rate 81 80 Respiratory Rate 20 22 Blood Pressure 141/78 H Pulse Oximetry 100 100 01/17/18 09:00 01/17/18 09:05 01/17/18 10:00 Temperature Pulse Rate 83 85 83 Respiratory Rate Blood Pressure 137/77 Pulse Oximetry 100 100 100 01/17/18 10:05 01/17/18 11:00 01/17/18 11:05 Temperature Pulse Rate 81 90 93 H Respiratory Rate Blood Pressure 143/77 H 131/73 Pulse Oximetry 100 100 100 01/17/18 12:26 Temperature Pulse Rate 88 Respiratory Rate 32 H Blood Pressure Pulse Oximetry 100 Intake & Output 01/16/18 01/17/18 01/17/18 18:59 06:59 18:59 Intake Total 1090 / 1090 2342.625 / 2342.625 1632.5 / 1632.5 Output Total 1225 / 1225 1250 / 1250 Balance -135 / -135 1092.625 / 0882.909 5417.5 / 1632.5 Weight 66.2 kg Intake: IV 150 / 150 1459.625 / 2515.925 3088.5 / 1632.5 LR 1000 mL Inj 1,000 ML @ 50 1000 / 1000 mls/hr IV.CONT .Q20H RICARDO Rx#: [id number] Neosynephrine Inj 40 MG In D5W 20 / 20 Inj 496 ML @ 40 MCG/MIN 30 mls/ hr IV.CONT TITRATE PRN Rx#: [id number] Sodium Chloride 23.4% Inj 38.5 1009.625 / 1009.625 MEQ In Sterile Water for Inj 1, 000 ML @ 84 mls/hr IV.CONT . Q12H2M RICARDO Rx#:[id number] Flexbumin 25% Inj 100 ML @ 60 100 / 100 300 / 300 100 / 100 mls/hr IV.SIG Q6H RICARDO Rx#: [id number] Diflucan 200 mg Premix Bag 100 200 / 200 ML @ 100 mls/hr IV.SIG Q24H RICARDO Rx#:[id number] Zosyn 3.375 GM Premix 50 ML @ 50 / 50 150 / 150 50 / 50 100 mls/hr IV.SIG Q6H RICARDO Rx#: [id number] Vancomycin Inj 1,250 MG In NS 262.5 / 262.5 Inj 250 ML @ 250 mls/hr IV.SIG Q24H RICARDO Rx#:[id number] Oral 480 / 480 Tube Feeding 283 / 283 Tube Irrigant 60 / 60 Water Bolus Amount 400 / 400 600 / 600 Output: Stool 300 / 300 200 / 200 Urine Amount (Catheter) 725 / 725 800 / 800 Indwelling Urethral Catheter 725 / 725 800 / 800 Wound Vac Amount 200 / 200 250 / 250 Sacrum 200 / 200 250 / 250 Other: Mode Setting Posterior Sacrum Continuous Continuous Continuous Sacrum Continuous Continuous Continuous Date of Last Bowel Movement 01/16/18 01/17/18 Physical Exam: CONSTITUTIONAL/GENERAL: This is a chronically ill appearing female who looks older than her stated age. TUBES/LINES/DRAINS: Tracheostomy, SCDs, PIV, wound VAC. SKIN: Very pale. Abrasion on left forehead. Scattered ecchymosis to upper extremities. Wound VAC in place over lower lumbar region with blood-tinged drainage in VAC canister. Skin warm/dry, flaky/scaling in places EYES: Pupils equal and round, reactive. No scleral icterus. No injection or drainage. ENT: Nose without bleeding or purulent drainage. Moist oral mucosa. CARDIOVASCULAR: Regular rate and rhythm. periph pulses palpable. Trace edema bilat hands, R>L. 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 Lungs w scattered rhonchi. GASTROINTESTINAL: Abdomen soft, non-tender, mildly distended. No guarding. Bowel sounds active, dobhoff NG in place. GENITOURINARY: Without palpable bladder distension. MUSCULOSKELETAL: Status post right BKA. Left foot cool to touch; dressing to foot. Post tib pulse palpable NEUROLOGICAL: Awake, nods to yes/no questions. Answers questions appropriately. Mouths words, able to understand most of what she is trying to mouth. Follows simple commands. PSYCHIATRIC: Calm/flat Diagnostic Tests Laboratory: Laboratory Results - last 72 hr 12/27/17 01/14/18 01/14/18 05:20 15:43 15:43 WBC RBC Hgb Hct MCV MCH MCHC RDW Plt Count MPV Neut % (Auto) Lymph % (Auto) [place] % (Auto) Eos % (Auto) Baso % (Auto) Neut # (Auto) Lymph # (Auto) [place] # (Auto) Eos # (Auto) Baso # (Auto) WBC Differential Differential Comment Puncture Site Patient Temperature O2 Saturation ABG pH ABG pCO2 ABG pO2 ABG HCO3 ABG O2 Content ABG Base Excess ABG Methemoglobin Aroldo Test Hemoglobin Carboxyhemoglobin O2 Delivery Device Liter Flow Vent Setting Inspired O2 Critical Value Sodium Potassium Chloride Carbon Dioxide Anion Gap BUN Creatinine Estimated GFR POC Glucose Random Glucose Lactic Acid 2.1 H Calcium Phosphorus Magnesium Urine Color Urine Clarity Urine pH Ur Specific [place] Urine Protein Urine Glucose (UA) Urine Ketones Urine Occult Blood Urine Nitrate Urine Bilirubin Urine Urobilinogen Ur Leukocyte Esterase Urine RBC Urine WBC Urine WBC Clumps Ur Squamous Epith Cells Urine Bacteria Hyaline Casts Urine Mucus Urine Yeast Micro UA Comment Ur Microscopic Review Urine Culture Comments Blood Type O Negative Antibody Screen Negative MTS Gel Crossmatch See Detail See Detail 01/14/18 01/14/18 01/14/18 15:54 16:00 18:34 WBC RBC Hgb Hct MCV MCH MCHC RDW Plt Count MPV Neut % (Auto) Lymph % (Auto) [place] % (Auto) Eos % (Auto) Baso % (Auto) Neut # (Auto) Lymph # (Auto) [place] # (Auto) Eos # (Auto) Baso # (Auto) WBC Differential Differential Comment Puncture Site Patient Temperature O2 Saturation ABG pH ABG pCO2 ABG pO2 ABG HCO3 ABG O2 Content ABG Base Excess ABG Methemoglobin Aroldo Test Hemoglobin Carboxyhemoglobin O2 Delivery Device Liter Flow Vent Setting Inspired O2 Critical Value Sodium Potassium Chloride Carbon Dioxide Anion Gap BUN Creatinine Estimated GFR POC Glucose 159 H 158 H Random Glucose Lactic Acid Calcium Phosphorus Magnesium Urine Color Yellow Urine Clarity Hazy H Urine pH 8.0 Ur Specific [place] 1.015 Urine Protein 500 or greater Urine Glucose (UA) Negative Urine Ketones Negative Urine Occult Blood Small H Urine Nitrate Negative Urine Bilirubin Negative Urine Urobilinogen Less than 2 Ur Leukocyte Esterase Large H Urine RBC 8 H Urine WBC Urine WBC Clumps Few H Ur Squamous Epith Cells 1 Urine Bacteria Few H Hyaline Casts 3 Urine Mucus Few H Urine Yeast Occasional H Micro UA Comment Cath-culture ind Ur Microscopic Review Not Reportable Urine Culture Comments Cath-cult indicated Blood Type Antibody Screen MTS Gel Crossmatch 01/14/18 01/14/18 01/14/18 18:52 18:55 22:02 WBC RBC Hgb Hct MCV MCH MCHC RDW Plt Count MPV Neut % (Auto) Lymph % (Auto) [place] % (Auto) Eos % (Auto) Baso % (Auto) Neut # (Auto) Lymph # (Auto) [place] # (Auto) Eos # (Auto) Baso # (Auto) WBC Differential Differential Comment Puncture Site Art line Cancelled Patient Temperature 98.6 Cancelled O2 Saturation 94 Cancelled ABG pH 7.47 H Cancelled ABG pCO2 35 L Cancelled ABG pO2 78 Cancelled ABG HCO3 25 Cancelled ABG O2 Content 9.0 L Cancelled ABG Base Excess 1.5 Cancelled ABG Methemoglobin 1.9 Cancelled Aroldo Test Present Cancelled Hemoglobin 6.8 L* Cancelled Carboxyhemoglobin 1.6 Cancelled O2 Delivery Device Ventilator Cancelled Liter Flow Cancelled Vent Setting Cancelled Inspired O2 50 Cancelled Critical Value Yes Cancelled Sodium Potassium Chloride Carbon Dioxide Anion Gap BUN Creatinine Estimated GFR POC Glucose 191 H Random Glucose Lactic Acid Calcium Phosphorus Magnesium Urine Color Urine Clarity Urine pH Ur Specific [place] Urine Protein Urine Glucose (UA) Urine Ketones Urine Occult Blood Urine Nitrate Urine Bilirubin Urine Urobilinogen Ur Leukocyte Esterase Urine RBC Urine WBC Urine WBC Clumps Ur Squamous Epith Cells Urine Bacteria Hyaline Casts Urine Mucus Urine Yeast Micro UA Comment Ur Microscopic Review Urine Culture Comments Blood Type Antibody Screen MTS Gel Crossmatch 01/15/18 01/15/18 01/15/18 00:41 04:45 04:45 WBC 21.2 H D RBC 2.37 L Hgb 7.2 L Hct 22.3 L MCV 94.3 MCH 30.4 MCHC 32.3 RDW 19.2 H Plt Count 285 D MPV 11.3 H Neut % (Auto) 80.9 H Lymph % (Auto) 13.2 [place] % (Auto) 4.6 Eos % (Auto) 0.4 Baso % (Auto) 0.9 Neut # (Auto) 17.1 H Lymph # (Auto) 2.8 [place] # (Auto) 1.0 H Eos # (Auto) 0.1 Baso # (Auto) 0.2 WBC Differential . Differential Comment Auto diff final Puncture Site Patient Temperature O2 Saturation ABG pH ABG pCO2 ABG pO2 ABG HCO3 ABG O2 Content ABG Base Excess ABG Methemoglobin Aroldo Test Hemoglobin Carboxyhemoglobin O2 Delivery Device Liter Flow Vent Setting Inspired O2 Critical Value Sodium 151 H Potassium 4.0 Chloride 118 H Carbon Dioxide 24.7 Anion Gap 8 BUN 72 H Creatinine 1.48 H Estimated GFR 37 L POC Glucose 182 H Random Glucose 213 H Lactic Acid Calcium 8.3 L D Phosphorus 1.0 L Magnesium 2.5 Urine Color Urine Clarity Urine pH Ur Specific [place] Urine Protein Urine Glucose (UA) Urine Ketones Urine Occult Blood Urine Nitrate Urine Bilirubin Urine Urobilinogen Ur Leukocyte Esterase Urine RBC Urine WBC Urine WBC Clumps Ur Squamous Epith Cells Urine Bacteria Hyaline Casts Urine Mucus Urine Yeast Micro UA Comment Ur Microscopic Review Urine Culture Comments Blood Type Antibody Screen MTS Gel Crossmatch 1101/15/18 01/15/18 09:16 11:52 16:51 WBC RBC Hgb Hct MCV MCH MCHC RDW Plt Count MPV Neut % (Auto) Lymph % (Auto) [place] % (Auto) Eos % (Auto) Baso % (Auto) Neut # (Auto) Lymph # (Auto) [place] # (Auto) Eos # (Auto) Baso # (Auto) WBC Differential Differential Comment Puncture Site Patient Temperature O2 Saturation ABG pH ABG pCO2 ABG pO2 ABG HCO3 ABG O2 Content ABG Base Excess ABG Methemoglobin Aroldo Test Hemoglobin Carboxyhemoglobin O2 Delivery Device Liter Flow Vent Setting Inspired O2 Critical Value Sodium Potassium Chloride Carbon Dioxide Anion Gap BUN Creatinine Estimated GFR POC Glucose 265 H 290 H 253 H Random Glucose Lactic Acid Calcium Phosphorus Magnesium Urine Color Urine Clarity Urine pH Ur Specific [place] Urine Protein Urine Glucose (UA) Urine Ketones Urine Occult Blood Urine Nitrate Urine Bilirubin Urine Urobilinogen Ur Leukocyte Esterase Urine RBC Urine WBC Urine WBC Clumps Ur Squamous Epith Cells Urine Bacteria Hyaline Casts Urine Mucus Urine Yeast Micro UA Comment Ur Microscopic Review Urine Culture Comments Blood Type Antibody Screen MTS Gel Crossmatch 01/15/18 01/16/18 01/16/18 20:38 01:35 04:36 WBC RBC Hgb Hct MCV MCH MCHC RDW Plt Count MPV Neut % (Auto) Lymph % (Auto) [place] % (Auto) Eos % (Auto) Baso % (Auto) Neut # (Auto) Lymph # (Auto) [place] # (Auto) Eos # (Auto) Baso # (Auto) WBC Differential Differential Comment Puncture Site Patient Temperature O2 Saturation ABG pH ABG pCO2 ABG pO2 ABG HCO3 ABG O2 Content ABG Base Excess ABG Methemoglobin Aroldo Test Hemoglobin Carboxyhemoglobin O2 Delivery Device Liter Flow Vent Setting Inspired O2 Critical Value Sodium Potassium Chloride Carbon Dioxide Anion Gap BUN Creatinine Estimated GFR POC Glucose 209 H 192 H 183 H Random Glucose Lactic Acid Calcium Phosphorus Magnesium Urine Color Urine Clarity Urine pH Ur Specific [place] Urine Protein Urine Glucose (UA) Urine Ketones Urine Occult Blood Urine Nitrate Urine Bilirubin Urine Urobilinogen Ur Leukocyte Esterase Urine RBC Urine WBC Urine WBC Clumps Ur Squamous Epith Cells Urine Bacteria Hyaline Casts Urine Mucus Urine Yeast Micro UA Comment Ur Microscopic Review Urine Culture Comments Blood Type Antibody Screen MTS Gel Crossmatch 01/16/18 01/16/18 01/16/18 05:29 05:29 09:07 WBC 15.3 H RBC 2.43 L Hgb 7.4 L Hct 22.1 L MCV 91.0 MCH 30.4 MCHC 33.4 RDW 19.7 H Plt Count 214 MPV 11.5 H Neut % (Auto) 81.6 H Lymph % (Auto) 11.4 [place] % (Auto) 4.0 Eos % (Auto) 2.1 Baso % (Auto) 0.9 Neut # (Auto) 12.5 H Lymph # (Auto) 1.7 [place] # (Auto) 0.6 Eos # (Auto) 0.3 Baso # (Auto) 0.1 WBC Differential . Differential Comment Auto diff final Puncture Site Patient Temperature O2 Saturation ABG pH ABG pCO2 ABG pO2 ABG HCO3 ABG O2 Content ABG Base Excess ABG Methemoglobin Aroldo Test Hemoglobin Carboxyhemoglobin O2 Delivery Device Liter Flow Vent Setting Inspired O2 Critical Value Sodium 147 H Potassium 3.1 L D Chloride 116 H Carbon Dioxide 22.1 Anion Gap 9 BUN 59 H Creatinine 1.24 H Estimated GFR 45 L POC Glucose 174 H Random Glucose 169 H Lactic Acid Calcium 7.8 L Phosphorus Magnesium Urine Color Urine Clarity Urine pH Ur Specific [place] Urine Protein Urine Glucose (UA) Urine Ketones Urine Occult Blood Urine Nitrate Urine Bilirubin Urine Urobilinogen Ur Leukocyte Esterase Urine RBC Urine WBC Urine WBC Clumps Ur Squamous Epith Cells Urine Bacteria Hyaline Casts Urine Mucus Urine Yeast Micro UA Comment Ur Microscopic Review Urine Culture Comments Blood Type Antibody Screen MTS Gel Crossmatch 01/16/18 01/16/18 01/16/18 14:06 16:43 20:38 WBC RBC Hgb Hct MCV MCH MCHC RDW Plt Count MPV Neut % (Auto) Lymph % (Auto) [place] % (Auto) Eos % (Auto) Baso % (Auto) Neut # (Auto) Lymph # (Auto) [place] # (Auto) Eos # (Auto) Baso # (Auto) WBC Differential Differential Comment Puncture Site Patient Temperature O2 Saturation ABG pH ABG pCO2 ABG pO2 ABG HCO3 ABG O2 Content ABG Base Excess ABG Methemoglobin Aroldo Test Hemoglobin Carboxyhemoglobin O2 Delivery Device Liter Flow Vent Setting Inspired O2 Critical Value Sodium Potassium Chloride Carbon Dioxide Anion Gap BUN Creatinine Estimated GFR POC Glucose 113 H 80 301 H Random Glucose Lactic Acid Calcium Phosphorus Magnesium Urine Color Urine Clarity Urine pH Ur Specific [place] Urine Protein Urine Glucose (UA) Urine Ketones Urine Occult Blood Urine Nitrate Urine Bilirubin Urine Urobilinogen Ur Leukocyte Esterase Urine RBC Urine WBC Urine WBC Clumps Ur Squamous Epith Cells Urine Bacteria Hyaline Casts Urine Mucus Urine Yeast Micro UA Comment Ur Microscopic Review Urine Culture Comments Blood Type Antibody Screen MTS Gel Crossmatch 01/16/18 01/16/18 01/17/18 20:45 22:42 01:18 WBC RBC Hgb Hct MCV MCH MCHC RDW Plt Count MPV Neut % (Auto) Lymph % (Auto) [place] % (Auto) Eos % (Auto) Baso % (Auto) Neut # (Auto) Lymph # (Auto) [place] # (Auto) Eos # (Auto) Baso # (Auto) WBC Differential Differential Comment Puncture Site Patient Temperature O2 Saturation ABG pH ABG pCO2 ABG pO2 ABG HCO3 ABG O2 Content ABG Base Excess ABG Methemoglobin Aroldo Test Hemoglobin Carboxyhemoglobin O2 Delivery Device Liter Flow Vent Setting Inspired O2 Critical Value Sodium Potassium Chloride Carbon Dioxide Anion Gap BUN Creatinine Estimated GFR POC Glucose 69 144 H 108 Random Glucose Lactic Acid Calcium Phosphorus Magnesium Urine Color Urine Clarity Urine pH Ur Specific [place] Urine Protein Urine Glucose (UA) Urine Ketones Urine Occult Blood Urine Nitrate Urine Bilirubin Urine Urobilinogen Ur Leukocyte Esterase Urine RBC Urine WBC Urine WBC Clumps Ur Squamous Epith Cells Urine Bacteria Hyaline Casts Urine Mucus Urine Yeast Micro UA Comment Ur Microscopic Review Urine Culture Comments Blood Type Antibody Screen [facility] Gel Crossmatch 01/17/18 01/17/18 01/17/18 04:57 05:19 09:06 WBC RBC Hgb Hct MCV MCH MCHC RDW Plt Count MPV Neut % (Auto) Lymph % (Auto) [place] % (Auto) Eos % (Auto) Baso % (Auto) Neut # (Auto) Lymph # (Auto) [place] # (Auto) Eos # (Auto) Baso # (Auto) WBC Differential Differential Comment Puncture Site Patient Temperature O2 Saturation ABG pH ABG pCO2 ABG pO2 ABG HCO3 ABG O2 Content ABG Base Excess ABG Methemoglobin Aroldo Test Hemoglobin Carboxyhemoglobin O2 Delivery Device Liter Flow Vent Setting Inspired O2 Critical Value Sodium Potassium Chloride Carbon Dioxide Anion Gap BUN Creatinine 0.92 Estimated GFR 64 L POC Glucose 117 H 154 H Random Glucose Lactic Acid Calcium Phosphorus Magnesium Urine Color Urine Clarity Urine pH Ur Specific [place] Urine Protein Urine Glucose (UA) Urine Ketones Urine Occult Blood Urine Nitrate Urine Bilirubin Urine Urobilinogen Ur Leukocyte Esterase Urine RBC Urine WBC Urine WBC Clumps Ur Squamous Epith Cells Urine Bacteria Hyaline Casts Urine Mucus Urine Yeast Micro UA Comment Ur Microscopic Review Urine Culture Comments Blood Type Antibody Screen MTS Gel Crossmatch 01/17/18 12:37 WBC RBC Hgb Hct MCV MCH MCHC RDW Plt Count MPV Neut % (Auto) Lymph % (Auto) [place] % (Auto) Eos % (Auto) Baso % (Auto) Neut # (Auto) Lymph # (Auto) [place] # (Auto) Eos # (Auto) Baso # (Auto) WBC Differential Differential Comment Puncture Site Patient Temperature O2 Saturation ABG pH ABG pCO2 ABG pO2 ABG HCO3 ABG O2 Content ABG Base Excess ABG Methemoglobin Aroldo Test Hemoglobin Carboxyhemoglobin O2 Delivery Device Liter Flow Vent Setting Inspired O2 Critical Value Sodium Potassium Chloride Carbon Dioxide Anion Gap BUN Creatinine Estimated GFR POC Glucose 194 H Random Glucose Lactic Acid Calcium Phosphorus Magnesium Urine Color Urine Clarity Urine pH Ur Specific [place] Urine Protein Urine Glucose (UA) Urine Ketones Urine Occult Blood Urine Nitrate Urine Bilirubin Urine Urobilinogen Ur Leukocyte Esterase Urine RBC Urine WBC Urine WBC Clumps Ur Squamous Epith Cells Urine Bacteria Hyaline Casts Urine Mucus Urine Yeast Micro UA Comment Ur Microscopic Review Urine Culture Comments Blood Type Antibody Screen MTS Gel Crossmatch Result Diagrams: 01/16/18 05:29 01/17/18 04:57 Microbiology: Microbiology 01/14/18 09:24 Gram Stain - Final Sputum - Endotracheal Sputum Culture - Final Pseudomonas aeruginosa 01/14/18 10:30 Aerobic Blood Culture - Preliminary Blood - Peripheral No growth in 3 days Anaerobic Blood Culture - Preliminary No growth in 3 days 01/14/18 10:35 Aerobic Blood Culture - Preliminary Blood - Peripheral No growth in 3 days Anaerobic Blood Culture - Preliminary No growth in 3 days 01/14/18 16:00 Urine Culture - Final Catheterized Urine Pseudomonas aeruginosa 12/24/17 12:20 Acid Fast Bacilli Smear - Final Tissue - Buttock No acid fast bacilli seen Mycobacterial Culture - Preliminary No growth in 3 weeks 12/24/17 12:20 Fungal Smear - Final Tissue - Buttock Rare budding yeast Fungal Culture - Final Talia albicans Talia tropicalis Imaging: Femur X-Ray 12/15/17 07:05 CONCLUSION: No fracture is identified. There is extensive soft tissue air in the right gluteal region and extending into the proximal and mid posterior thigh. The soft tissue air suggests an open wound. Pelvis X-Ray 12/15/17 07:05 CONCLUSION: No fracture is identified. However, there is extensive soft tissue air in the left gluteal region and left proximal thigh. Pelvis CT 12/15/17 07:52 CONCLUSION: 1. No fracture is identified. 2. Extensive subcutaneous and soft tissue gas bilaterally, left greater than right. It is most severe in the left gluteal region and extends into the proximal posterior thigh. The soft tissue air dissects through the gluteal musculature. There is adjacent subcutaneous edema. Foot X-Ray 12/18/17 00:00 CONCLUSION: Remote small avulsion fracture at the fifth toe. No acute bony abnormality. Venous Doppler Study 12/22/17 00:00 CONCLUSION: Extensive deep vein thrombosis of the left upper extremity. Abdomen X-Ray 01/08/18 00:08 CONCLUSION: Feeding tube tip is in the region of the distal stomach Chest X-Ray 01/14/18 00:00 CONCLUSION: 1. Tubes and lines, as above. 2. Slight improved aeration of the lower lung zones with persistent mild patchy airspace disease and probable trace left pleural effusion. Procedures: 12/15/2017: Endotracheal intubation 12/15/2017: Left subclavian central line placement 12/15/2017: NGT placement 12/15/2017: I&D with wound HEMOVAC placement 12/18/2017: I&D with wound VAC change 12/21/2017: I&D with wound VAC change 12/24/2017: I&D with wound VAC change 12/28/2017: perc trach, wound vac change to back, buttock, posterior thigh 12/31/2017: I&D with wound VAC change, removal of coccyx bone 01/04/2018: I&D with wound VAC change 01/08/2018: I&D with wound VAC change, partial closure Assessment and Plan - Disease Oriented Problem List (1) Septic shock with acute organ dysfunction due to anaerobic bacteria (2) Acute respiratory failure (3) Type 2 diabetes mellitus with hyperosmolar nonketotic hyperglycemia (4) Necrotizing fasciitis (5) MARIO (acute kidney injury) (6) Lactic acidosis (7) Hypernatremia Pertinent Non-Medical Issues: Psychosocial:Originally from [place]. Currently . Spiritual: No holiness affiliation. Legal: Per [place] statutes, in the absence of written advanced directives health care proxy decision making will fall to the patient's , Tyrone. Ethical issues impacting care: No known ethical issues impacting care at this time. Important Contacts: Tyrone Middleton, : [phone] Sister Linette Lebron , Prognosis: Patient is critically ill and in septic shock with necrotizing fasciitis secondary to a chronic sacral decubitus. Upon arrival to the ED, the patient was hyperglycemic with a blood glucose of 610, severely dehydrated and in profound shock. She is intubated on mechanical ventilation requiring pressor support status post wide excision of the involved soft tissue. Patient will require further debridement in the future. She remains hemodynamically unstable and critically ill. Now declining, may not survive this hospitalization. Very poor overall prognosis for meaningful recovery. Code Status: Full Code Plan: * CODE STATUS: FULL CODE. Risks, benefits and limitations of CPR were discussed at length with patient's on 01/14. Briefly discussed with patient 01/17/18, she also indicated desire for FULL CODE. * HEALTHCARE DECISION-MAKING: Difficult to assess insight and judgment related to her complicated clinical condition, unclear if she will regain capacity for medical decision-making. Per [place] statute, in the absence of written advanced directives healthcare proxy decision making falls to the patient's , Tyrone Middleton. He has accepted this role. * GOALS OF CARE: Goals remain aggressive including FULL CODE. Patient declines colostomy, will attempt to discuss with spouse. Patient seems to understand though cannot clearly determine capacity given communication limitations. \\ * Discussed with nurse and general surgery. * Symptom management: = Pain: Multifactoral. Patient has a long history of chronic conditions. Possible contributing factors include severe peripheral arterial disease, recent BKA, peripheral neuropathy, sepsis, necrotizing fasciitis, invasive lines, immobility. Currently on fentanyl patch 50 mcg q72hrs. Appears comfortable at time of my visit, nods yes to pain, relieved with sparing PRN Hydrocodone. No further recommendations. = Debility/profound physical deconditioning: Patient with uncontrolled diabetes with severe peripheral arterial disease and smoking. 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 Debility anticipated to worsen. now back in ICU on vent, which will further limit restorative efforts = Fever - due to sepsis. BC pending. likely due to large extensive wounds and possible fecal contamination. Resolved. = Dyspnea: trach to vent, tolerating intermittent CPAP trials. * Palliative care will continue to follow this patient throughout her hospitalization to establish trust, assist with symptom management and clarification of medical treatment goals. Attestation Attestation: To help prompt me to consider important information that might be impacting today's encounter and assessment, information from prior notes written by myself or my colleagues may have been "brought forward" into today's note. My signature on this note, however, is an attestation that I personally performed the exam, history, and/or decision-making noted today, and, unless otherwise indicated, the interactions with patient, family, and staff as well as the review of records all occurred today. I also attest that the listed assessment and stated plan reflect my best clinical judgment today based on the combination of historical information, prior notes, and today's exam/ interactions. When time spent is documented, it refers only to time spent today by the signer, or if indicated, combined time spent today by collaborating physician/nurse practitioner.
--- NOTE | 2018-01-17 14:35 | P.PNGS ---
Subjective Interval history: Resting in bed Awake Following commands Physical Exam Vital signs: Vital Signs 01/16/18 15:50 01/16/18 18:45 01/16/18 19:00 Temperature Pulse Rate 84 84 86 Respiratory Rate 30 H 29 H 30 H Blood Pressure 125/69 Pulse Oximetry 100 100 100 01/16/18 19:15 01/16/18 19:30 01/16/18 19:45 Temperature Pulse Rate 85 79 81 Respiratory Rate 35 H 35 H 34 H Blood Pressure 123/69 124/66 125/71 Pulse Oximetry 100 100 100 01/16/18 20:00 01/16/18 20:15 01/16/18 20:16 Temperature 98.5 F Pulse Rate 72 78 81 Respiratory Rate 30 H 34 H 22 Blood Pressure 124/69 124/69 Pulse Oximetry 100 100 01/16/18 20:17 01/16/18 20:30 01/16/18 20:45 Temperature Pulse Rate 75 79 Respiratory Rate 25 H 24 30 H Blood Pressure 125/67 125/69 Pulse Oximetry 100 100 01/16/18 21:00 01/16/18 21:15 01/16/18 21:30 Temperature Pulse Rate 77 80 78 Respiratory Rate 26 H 21 23 Blood Pressure 125/70 124/71 130/71 Pulse Oximetry 100 100 100 01/16/18 21:45 01/16/18 22:00 01/16/18 22:15 Temperature Pulse Rate 75 82 79 Respiratory Rate 22 24 21 Blood Pressure 132/72 114/58 L 124/67 Pulse Oximetry 100 100 100 01/16/18 22:30 01/16/18 22:45 01/16/18 23:00 Temperature Pulse Rate 75 74 73 Respiratory Rate 26 H 19 20 Blood Pressure 121/69 122/70 123/70 Pulse Oximetry 100 100 100 01/16/18 23:15 01/16/18 23:30 01/16/18 23:45 Temperature Pulse Rate 73 72 73 Respiratory Rate 21 20 21 Blood Pressure 114/62 125/70 125/71 Pulse Oximetry 100 100 100 01/16/18 23:48 01/17/18 00:00 01/17/18 00:15 Temperature Pulse Rate 73 69 71 Respiratory Rate 21 23 22 Blood Pressure 124/72 120/66 Pulse Oximetry 100 100 100 01/17/18 00:30 01/17/18 00:45 01/17/18 01:00 Temperature Pulse Rate 72 72 68 Respiratory Rate 21 21 24 Blood Pressure 124/71 127/68 129/68 Pulse Oximetry 100 100 100 01/17/18 01:15 01/17/18 01:30 01/17/18 01:45 Temperature Pulse Rate 69 73 71 Respiratory Rate 22 20 21 Blood Pressure 128/67 128/70 123/71 Pulse Oximetry 100 100 100 01/17/18 02:00 01/17/18 02:15 01/17/18 02:30 Temperature Pulse Rate 74 72 68 Respiratory Rate 20 21 20 Blood Pressure 130/74 119/70 124/73 Pulse Oximetry 100 100 100 01/17/18 03:00 01/17/18 03:15 01/17/18 04:00 Temperature 98.5 F Pulse Rate 73 69 70 Respiratory Rate 24 21 Blood Pressure 134/65 129/71 Pulse Oximetry 100 100 100 01/17/18 04:05 01/17/18 04:12 01/17/18 05:00 Temperature Pulse Rate 71 78 Respiratory Rate 20 Blood Pressure 139/74 Pulse Oximetry 100 100 100 01/17/18 05:05 01/17/18 06:00 01/17/18 06:05 Temperature Pulse Rate 75 80 78 Respiratory Rate Blood Pressure 135/66 155/87 H Pulse Oximetry 100 100 100 01/17/18 07:00 01/17/18 07:05 01/17/18 08:00 Temperature 99.1 F Pulse Rate 78 84 78 Respiratory Rate Blood Pressure 144/78 H 141/78 H Pulse Oximetry 100 100 100 01/17/18 08:05 01/17/18 08:21 01/17/18 08:30 Temperature Pulse Rate 81 80 Respiratory Rate 20 22 Blood Pressure 141/78 H Pulse Oximetry 100 100 01/17/18 09:00 01/17/18 09:05 01/17/18 10:00 Temperature Pulse Rate 83 85 83 Respiratory Rate Blood Pressure 137/77 Pulse Oximetry 100 100 100 01/17/18 10:05 01/17/18 11:00 01/17/18 11:05 Temperature Pulse Rate 81 90 93 H Respiratory Rate Blood Pressure 143/77 H 131/73 Pulse Oximetry 100 100 100 01/17/18 12:26 Temperature Pulse Rate 88 Respiratory Rate 32 H Blood Pressure Pulse Oximetry 100 Intake & Output 01/16/18 01/17/18 01/17/18 18:59 06:59 18:59 Intake Total 1090 / 1090 2342.625 / 2342.625 1632.5 / 1632.5 Output Total 1225 / 1225 1250 / 1250 Balance -135 / -135 1092.625 / 2612.860 4039.5 / 1632.5 Weight 66.2 kg Intake: IV 150 / 150 1459.625 / 3960.697 4408.5 / 1632.5 LR 1000 mL Inj 1,000 ML @ 50 1000 / 1000 mls/hr IV.CONT .Q20H RICARDO Rx#: [id number] Neosynephrine Inj 40 MG In D5W 20 / 20 Inj 496 ML @ 40 MCG/MIN 30 mls/ hr IV.CONT TITRATE PRN Rx#: [id number] Sodium Chloride 23.4% Inj 38.5 1009.625 / 1009.625 MEQ In Sterile Water for Inj 1, 000 ML @ 84 mls/hr IV.CONT . Q12H2M RICARDO Rx#:[id number] Flexbumin 25% Inj 100 ML @ 60 100 / 100 300 / 300 100 / 100 mls/hr IV.SIG Q6H RICARDO Rx#: [id number] Diflucan 200 mg Premix Bag 100 200 / 200 ML @ 100 mls/hr IV.SIG Q24H RICARDO Rx#:[id number] Zosyn 3.375 GM Premix 50 ML @ 50 / 50 150 / 150 50 / 50 100 mls/hr IV.SIG Q6H RICARDO Rx#: [id number] Vancomycin Inj 1,250 MG In NS 262.5 / 262.5 Inj 250 ML @ 250 mls/hr IV.SIG Q24H RICARDO Rx#:[id number] Oral 480 / 480 Tube Feeding 283 / 283 Tube Irrigant 60 / 60 Water Bolus Amount 400 / 400 600 / 600 Output: Stool 300 / 300 200 / 200 Urine Amount (Catheter) 725 / 725 800 / 800 Indwelling Urethral Catheter 725 / 725 800 / 800 Wound Vac Amount 200 / 200 250 / 250 Sacrum 200 / 200 250 / 250 Other: Mode Setting Posterior Sacrum Continuous Continuous Continuous Sacrum Continuous Continuous Continuous Date of Last Bowel Movement 01/16/18 01/17/18 Narrative: Alert and awake Wound vac in place with good seal - Urinary Catheter Management Indwelling Urethral Catheter Cath placed during this visit: yes Reason for continuing: Hourly intake/output Insertion date: 01/13/18 Insertion time: 01:00 1 Cath placed during this visit: yes, but has since been removed by the nurse Urethral indwelling: Yes Reason for continuing: Severe pressure ulcer/wound Insertion date: 12/15/17 Removal date: 01/13/18 Removal time: 01:00 Results - Labs 01/27/18 05:31 01/27/18 05:31 Laboratory Results - last 24 hr 01/16/18 01/16/18 01/16/18 16:43 20:38 20:45 Creatinine Estimated GFR POC Glucose 80 301 H 69 01/16/18 01/17/18 01/17/18 22:42 01:18 04:57 Creatinine 0.92 Estimated GFR 64 L POC Glucose 144 H 108 01/17/18 01/17/18 01/17/18 05:19 09:06 12:37 Creatinine Estimated GFR POC Glucose 117 H 154 H 194 H - Imaging Imaging: ITS Impressions Femur X-Ray 12/15/17 07:05 CONCLUSION: No fracture is identified. There is extensive soft tissue air in the right gluteal region and extending into the proximal and mid posterior thigh. The soft tissue air suggests an open wound. Pelvis X-Ray 12/15/17 07:05 CONCLUSION: No fracture is identified. However, there is extensive soft tissue air in the left gluteal region and left proximal thigh. Pelvis CT 12/15/17 07:52 CONCLUSION: 1. No fracture is identified. 2. Extensive subcutaneous and soft tissue gas bilaterally, left greater than right. It is most severe in the left gluteal region and extends into the proximal posterior thigh. The soft tissue air dissects through the gluteal musculature. There is adjacent subcutaneous edema. Foot X-Ray 12/18/17 00:00 CONCLUSION: Remote small avulsion fracture at the fifth toe. No acute bony abnormality. Venous Doppler Study 12/22/17 00:00 CONCLUSION: Extensive deep vein thrombosis of the left upper extremity. Abdomen X-Ray 01/08/18 00:08 CONCLUSION: Feeding tube tip is in the region of the distal stomach Chest X-Ray 01/14/18 00:00 CONCLUSION: 1. Tubes and lines, as above. 2. Slight improved aeration of the lower lung zones with persistent mild patchy airspace disease and probable trace left pleural effusion. Assessment and Plan - Assessment (1) Fasciitis Code(s): M72.9 - Fibroblastic disorder, unspecified Status: Acute Plan: 52 year old female with extensive wound on posterior back, buttocks and thigh -Plan for Wound Vac change tomorrow in OR -NPO after MN -Obtain consents -Wound healing is complicated by stool into wound---Discussed about colostomy placement---will help with control of stool. Patient refuses. -Also discussed PEG placement---also patient refuses -Discussed with Palliative Care - Attending Attestation patient seen at bedside vac change planning recommend g tube and colostomy pt continues to refuse both procedures The exam, history, and the medical decision-making described in the above note were completed with the assistance of the mid-level provider. I reviewed and agree with the findings presented. I attest that I had a [id number] encounter with the patient on the same day, and personally performed and documented my assessment and findings in the medical record.
--- NOTE | 2018-01-17 15:03 | P.PNNP ---
Subjective Interval history: Patient is status post trach on ventilator on pressure support and CPAP Physical Exam Vital signs: Vital Signs 01/16/18 15:50 01/16/18 18:45 01/16/18 19:00 Temperature Pulse Rate 84 84 86 Respiratory Rate 30 H 29 H 30 H Blood Pressure 125/69 Pulse Oximetry 100 100 100 01/16/18 19:15 01/16/18 19:30 01/16/18 19:45 Temperature Pulse Rate 85 79 81 Respiratory Rate 35 H 35 H 34 H Blood Pressure 123/69 124/66 125/71 Pulse Oximetry 100 100 100 01/16/18 20:00 01/16/18 20:15 01/16/18 20:16 Temperature 98.5 F Pulse Rate 72 78 81 Respiratory Rate 30 H 34 H 22 Blood Pressure 124/69 124/69 Pulse Oximetry 100 100 01/16/18 20:17 01/16/18 20:30 01/16/18 20:45 Temperature Pulse Rate 75 79 Respiratory Rate 25 H 24 30 H Blood Pressure 125/67 125/69 Pulse Oximetry 100 100 01/16/18 21:00 01/16/18 21:15 01/16/18 21:30 Temperature Pulse Rate 77 80 78 Respiratory Rate 26 H 21 23 Blood Pressure 125/70 124/71 130/71 Pulse Oximetry 100 100 100 01/16/18 21:45 01/16/18 22:00 01/16/18 22:15 Temperature Pulse Rate 75 82 79 Respiratory Rate 22 24 21 Blood Pressure 132/72 114/58 L 124/67 Pulse Oximetry 100 100 100 01/16/18 22:30 01/16/18 22:45 01/16/18 23:00 Temperature Pulse Rate 75 74 73 Respiratory Rate 26 H 19 20 Blood Pressure 121/69 122/70 123/70 Pulse Oximetry 100 100 100 01/16/18 23:15 01/16/18 23:30 01/16/18 23:45 Temperature Pulse Rate 73 72 73 Respiratory Rate 21 20 21 Blood Pressure 114/62 125/70 125/71 Pulse Oximetry 100 100 100 01/16/18 23:48 01/17/18 00:00 01/17/18 00:15 Temperature Pulse Rate 73 69 71 Respiratory Rate 21 23 22 Blood Pressure 124/72 120/66 Pulse Oximetry 100 100 100 01/17/18 00:30 01/17/18 00:45 01/17/18 01:00 Temperature Pulse Rate 72 72 68 Respiratory Rate 21 21 24 Blood Pressure 124/71 127/68 129/68 Pulse Oximetry 100 100 100 01/17/18 01:15 01/17/18 01:30 01/17/18 01:45 Temperature Pulse Rate 69 73 71 Respiratory Rate 22 20 21 Blood Pressure 128/67 128/70 123/71 Pulse Oximetry 100 100 100 01/17/18 02:00 01/17/18 02:15 01/17/18 02:30 Temperature Pulse Rate 74 72 68 Respiratory Rate 20 21 20 Blood Pressure 130/74 119/70 124/73 Pulse Oximetry 100 100 100 01/17/18 03:00 01/17/18 03:15 01/17/18 04:00 Temperature 98.5 F Pulse Rate 73 69 70 Respiratory Rate 24 21 Blood Pressure 134/65 129/71 Pulse Oximetry 100 100 100 01/17/18 04:05 01/17/18 04:12 01/17/18 05:00 Temperature Pulse Rate 71 78 Respiratory Rate 20 Blood Pressure 139/74 Pulse Oximetry 100 100 100 01/17/18 05:05 01/17/18 06:00 01/17/18 06:05 Temperature Pulse Rate 75 80 78 Respiratory Rate Blood Pressure 135/66 155/87 H Pulse Oximetry 100 100 100 01/17/18 07:00 01/17/18 07:05 01/17/18 08:00 Temperature 99.1 F Pulse Rate 78 84 78 Respiratory Rate Blood Pressure 144/78 H 141/78 H Pulse Oximetry 100 100 100 01/17/18 08:05 01/17/18 08:21 01/17/18 08:30 Temperature Pulse Rate 81 80 Respiratory Rate 20 22 Blood Pressure 141/78 H Pulse Oximetry 100 100 01/17/18 09:00 01/17/18 09:05 01/17/18 10:00 Temperature Pulse Rate 83 85 83 Respiratory Rate Blood Pressure 137/77 Pulse Oximetry 100 100 100 01/17/18 10:05 01/17/18 11:00 01/17/18 11:05 Temperature Pulse Rate 81 90 93 H Respiratory Rate Blood Pressure 143/77 H 131/73 Pulse Oximetry 100 100 100 01/17/18 12:26 Temperature Pulse Rate 88 Respiratory Rate 32 H Blood Pressure Pulse Oximetry 100 Intake & Output 01/16/18 01/17/18 01/17/18 18:59 06:59 18:59 Intake Total 1090 / 1090 2342.625 / 2342.625 1632.5 / 1632.5 Output Total 1225 / 1225 1250 / 1250 Balance -135 / -135 1092.625 / 4175.131 9477.5 / 1632.5 Weight 66.2 kg Intake: IV 150 / 150 1459.625 / 2394.713 0234.5 / 1632.5 LR 1000 mL Inj 1,000 ML @ 50 1000 / 1000 mls/hr IV.CONT .Q20H RICARDO Rx#: [id number] Neosynephrine Inj 40 MG In D5W 20 / 20 Inj 496 ML @ 40 MCG/MIN 30 mls/ hr IV.CONT TITRATE PRN Rx#: [id number] Sodium Chloride 23.4% Inj 38.5 1009.625 / 1009.625 MEQ In Sterile Water for Inj 1, 000 ML @ 84 mls/hr IV.CONT . Q12H2M RICARDO Rx#:[id number] Flexbumin 25% Inj 100 ML @ 60 100 / 100 300 / 300 100 / 100 mls/hr IV.SIG Q6H RICARDO Rx#: [id number] Diflucan 200 mg Premix Bag 100 200 / 200 ML @ 100 mls/hr IV.SIG Q24H RICARDO Rx#:[id number] Zosyn 3.375 GM Premix 50 ML @ 50 / 50 150 / 150 50 / 50 100 mls/hr IV.SIG Q6H RICARDO Rx#: [id number] Vancomycin Inj 1,250 MG In NS 262.5 / 262.5 Inj 250 ML @ 250 mls/hr IV.SIG Q24H RICARDO Rx#:[id number] Oral 480 / 480 Tube Feeding 283 / 283 Tube Irrigant 60 / 60 Water Bolus Amount 400 / 400 600 / 600 Output: Stool 300 / 300 200 / 200 Urine Amount (Catheter) 725 / 725 800 / 800 Indwelling Urethral Catheter 725 / 725 800 / 800 Wound Vac Amount 200 / 200 250 / 250 Sacrum 200 / 200 250 / 250 Other: Mode Setting Posterior Sacrum Continuous Continuous Continuous Sacrum Continuous Continuous Continuous Date of Last Bowel Movement 01/16/18 01/17/18 Narrative: Alert and awake Wound vac in place with good seal Chest and lung: Clear to auscultation status post tracheostomy on vent CVS S1-S2 regular rate and rhythm Abdomen is soft nontender extremity: Left foot dressing - Urinary Catheter Management Indwelling Urethral Catheter Cath placed during this visit: yes Reason for continuing: Hourly intake/output Insertion date: 01/13/18 Insertion time: 01:00 1 Cath placed during this visit: yes, but has since been removed by the nurse Urethral indwelling: Yes Reason for continuing: Severe pressure ulcer/wound Insertion date: 12/15/17 Removal date: 01/13/18 Removal time: 01:00 Assessment and Plan - Assessment (1) MARIO (acute kidney injury) Code(s): N17.9 - Acute kidney failure, unspecified Status: Acute (2) Hypernatremia Code(s): E87.0 - Hyperosmolality and hypernatremia Status: Acute (3) Type 2 diabetes mellitus with hyperosmolar nonketotic hyperglycemia Code(s): E11.01 - Type 2 diabetes mellitus with hyperosmolarity with coma Status: Acute (4) Necrotizing fasciitis of pelvic region and thigh Code(s): M72.6 - Necrotizing fasciitis Status: Acute - Plan Patient was requiring frequent surgery and debridement getting IV fluids sodium has improved to 147 creatinine 1.2 Getting albumin 25 g every 6 hourly, free water flushes 200 cc every 4 hours Remains nonoliguric one fourth of normal saline at 84 cc an hour creatinine declined 1.2, follow BMP Patient is having sepsis and being observed in intensive care unit UTIs bacteria Pseudomonas ID is following Zosyn/vancomycin/metronidazole
[2018-01-18] MEDS: Oral Hygiene Kit OROPHARYNG SCH ×4 (00:30→15:02)
[2018-01-18] MEDS: Piperacil/Tazo 3.375 GM Premix 50 ML IV.SIG SCH ×4 (00:30→17:59)
[2018-01-18] MEDS: Insulin NovoLIN Regular Correctional Sugar Inj SQ SCH ×6 (00:59→20:12)
[2018-01-18] MEDS: Albumin Human 25% Inj 100 ML IV.SIG SCH ×2 (04:34→09:54)
[2018-01-18 05:17] LABS: Hematocrit 22.7 % (35.0-46.0); Hemoglobin 7.5 gm/dL (11.6-15.3); Mean Corpuscular HGB Conc 33.2 % (32.0-36.0); Mean Corpuscular Hemoglobin 30.3 pg (27.0-34.0); Mean Platelet Volume 11.2 fL (7.0-11.0); Platelet Count 233 th/mm3 (150-450); Red Blood Count 2.49 mil/mm3 (4.00-5.30); Red Cell Distribution Width 19.1 % (11.6-17.2)
[2018-01-18] MEDS: metroNIDAZOLE 500 MG Tablet NG/OG SCH ×3 (05:20→21:48)
[2018-01-18 05:29] LABS: Calcium 7.7 mg/dL (8.5-10.1); Carbon Dioxide 21.5 meq/L (21.0-32.0); Potassium 3.4 meq/L (3.5-5.1)
--- NOTE | 2018-01-18 07:10 | P.OP ---
- Preoperative Diagnosis (1) Necrotizing fasciitis of pelvic region and thigh - Postoperative Diagnosis (1) Necrotizing fasciitis of pelvic region and thigh Procedure: vac change Anesthesia: GETA Surgeon: Ventura Bazzi MD Estimated blood loss (mL): 5 Pathology: none sent Operation and Findings: better healing of tissue
[2018-01-18] MEDS: Sodium Chloride 23.4% Inj 38.5 MEQ in Water for Inj, Sterile 1,000 ML IV.CONT SCH (08:04)
[2018-01-18] MEDS ORDERED: fentaNYL Citrate Inj 100 MCG/2 ML Ampul ONE (08:23)
[2018-01-18] MEDS: Chlorhexidine 0.12% Oral Kit 15 ML UDC OROPHARYNG SCH ×2 (09:44→20:12)
[2018-01-18] MEDS: Lansoprazole ODT 15 MG Tablet NG/OG SCH (09:52)
[2018-01-18] MEDS: hydrALAZINE 50 MG Tablet NG/OG SCH ×3 (09:52→17:32)
[2018-01-18] MEDS: Lisinopril 5 MG Tablet NG/OG SCH (09:52)
[2018-01-18] MEDS: Potassium Phosphate 500 MG Soluble Tablet NG/OG SCH ×2 (09:52→20:11)
[2018-01-18] MEDS: Potassium Bicarbonate 25 MEQ Effervescent Tablet NG/OG SCH ×2 (09:52→20:12)
[2018-01-18] MEDS: Metoprolol Tartrate 50 MG Tablet NG/OG SCH ×2 (09:52→20:13)
[2018-01-18] MEDS: Senna/Docusate Sodium 8.6/50 MG Tablet NG/OG SCH ×2 (09:52→20:13)
[2018-01-18] MEDS: Collagenase Oint 30 GM Tube TOPICAL SCH (09:53)
[2018-01-18] MEDS: Insulin Detemir Inj 1,000 UNIT/10 ML Vial SQ SCH ×2 (09:59→20:12)
--- NOTE | 2018-01-18 10:24 | P.PNNP ---
Subjective Interval history: Patient is status post trach on ventilator, getting one fourth of saline has frequent debridement went this morning for debridement, has necrotizing fasciitis pelvic area Physical Exam Vital signs: Vital Signs 01/17/18 11:00 01/17/18 11:05 01/17/18 12:00 Temperature 98.7 F Pulse Rate 90 93 H 91 H Respiratory Rate Blood Pressure 131/73 Pulse Oximetry 100 100 99 01/17/18 12:05 01/17/18 12:26 01/17/18 13:00 Temperature Pulse Rate 90 88 92 H Respiratory Rate 37 H 32 H 32 H Blood Pressure 135/75 Pulse Oximetry 98 100 100 01/17/18 13:05 01/17/18 14:00 01/17/18 14:05 Temperature Pulse Rate 92 H 92 H 86 Respiratory Rate 28 H 29 H 28 H Blood Pressure 137/76 135/72 Pulse Oximetry 100 100 100 01/17/18 15:00 01/17/18 15:05 01/17/18 15:44 Temperature Pulse Rate 94 H 91 H 90 Respiratory Rate 31 H 30 H 27 H Blood Pressure 134/73 Pulse Oximetry 100 100 100 01/17/18 16:00 01/17/18 19:00 01/17/18 19:05 Temperature 98.6 F Pulse Rate 92 H 84 84 Respiratory Rate 28 H 24 24 Blood Pressure 125/69 Pulse Oximetry 100 100 100 01/17/18 20:00 01/17/18 20:05 01/17/18 20:40 Temperature 98.8 F Pulse Rate 90 90 82 Respiratory Rate 26 H 27 H 24 Blood Pressure 119/65 Pulse Oximetry 100 100 100 01/17/18 21:00 01/17/18 21:05 01/17/18 22:00 Temperature Pulse Rate 82 82 88 Respiratory Rate 16 20 Blood Pressure 130/77 Pulse Oximetry 100 100 100 01/17/18 22:05 01/17/18 23:00 01/17/18 23:05 Temperature Pulse Rate 85 82 84 Respiratory Rate Blood Pressure 120/64 116/64 Pulse Oximetry 100 100 100 01/18/18 00:00 01/18/18 00:05 01/18/18 00:15 Temperature 98.8 F 97.6 F Pulse Rate 82 83 75 Respiratory Rate 14 Blood Pressure 123/68 Pulse Oximetry 100 100 99 01/18/18 00:22 01/18/18 01:00 01/18/18 01:05 Temperature Pulse Rate 71 85 86 Respiratory Rate 23 Blood Pressure 116/63 Pulse Oximetry 100 100 100 01/18/18 02:00 01/18/18 02:05 01/18/18 03:00 Temperature Pulse Rate 88 84 82 Respiratory Rate Blood Pressure 132/68 Pulse Oximetry 100 100 100 01/18/18 03:05 01/18/18 04:00 01/18/18 04:05 Temperature 98.8 F Pulse Rate 83 82 86 Respiratory Rate 18 16 Blood Pressure 129/66 126/66 Pulse Oximetry 100 100 100 01/18/18 04:41 01/18/18 05:00 01/18/18 05:05 Temperature Pulse Rate 82 87 84 Respiratory Rate 23 14 Blood Pressure 128/67 Pulse Oximetry 100 100 100 01/18/18 06:00 01/18/18 06:05 01/18/18 07:00 Temperature Pulse Rate 84 83 82 Respiratory Rate 18 Blood Pressure 134/71 Pulse Oximetry 100 100 100 01/18/18 07:05 01/18/18 07:11 01/18/18 07:57 Temperature Pulse Rate 77 82 Respiratory Rate Blood Pressure 148/77 H 115/67 Pulse Oximetry 100 100 01/18/18 08:00 01/18/18 08:09 01/18/18 08:15 Temperature 98.5 F Pulse Rate 86 84 95 H Respiratory Rate 25 H 25 H Blood Pressure 137/70 119/70 Pulse Oximetry 100 100 100 01/18/18 08:30 01/18/18 08:45 01/18/18 09:00 Temperature Pulse Rate 96 H 93 H 89 Respiratory Rate 25 H 22 23 Blood Pressure 129/77 133/74 134/72 Pulse Oximetry 100 100 100 01/18/18 09:15 01/18/18 09:30 01/18/18 09:45 Temperature Pulse Rate 90 88 90 Respiratory Rate 22 25 H 26 H Blood Pressure 140/75 143/75 H 143/71 H Pulse Oximetry 100 100 100 01/18/18 10:00 Temperature Pulse Rate 94 H Respiratory Rate 25 H Blood Pressure 143/74 H Pulse Oximetry 100 Intake & Output 01/17/18 01/18/18 01/18/18 18:59 06:59 18:59 Intake Total 3600.125 / 3600.125 712 / 712 300 / 300 Output Total 1100 / 1100 1050 / 1050 5 / 5 Balance 2500.125 / 2500.125 -338 / -338 295 / 295 Weight 68.5 kg Intake: IV 2742.125 / 2742.125 441 / 441 50 / 50 LR 1000 mL Inj 1,000 ML @ 50 1000 / 1000 mls/hr IV.CONT .Q20H [facility] Rx#: [id number] Neosynephrine Inj 40 MG In D5W 20 / 20 Inj 496 ML @ 40 MCG/MIN 30 mls/ hr IV.CONT TITRATE PRN Rx#: [id number] Sodium Chloride 23.4% Inj 38.5 809.625 / 809.625 191 / 191 MEQ In Sterile Water for Inj 1, 000 ML @ 84 mls/hr IV.CONT . Q12H2M [facility] Rx#:[id number] Flexbumin 25% Inj 100 ML @ 60 200 / 200 200 / 200 mls/hr IV.SIG Q6H [facility] Rx#: [id number] Diflucan 200 mg Premix Bag 100 300 / 300 ML @ 100 mls/hr IV.SIG Q24H [facility] Rx#:[id number] Zosyn 3.375 GM Premix 50 ML @ 150 / 150 50 / 50 50 / 50 100 mls/hr IV.SIG Q6H [facility] Rx#: [id number] Vancomycin Inj 1,250 MG In NS 262.5 / 262.5 Inj 250 ML @ 250 mls/hr IV.SIG Q24H [facility] Rx#:[id number] Tube Feeding 398 / 398 271 / 271 Tube Irrigant 60 / 60 Water Bolus Amount 400 / 400 Anesthesia Amount 250 / 250 Output: Stool 150 / 150 250 / 250 Estimated Blood Loss 5 / 5 Urine Amount (Catheter) 750 / 750 600 / 600 Indwelling Urethral Catheter 750 / 750 600 / 600 Wound Vac Amount 200 / 200 200 / 200 Posterior Sacrum 200 / 200 Sacrum 200 / 200 Other: Mode Setting Posterior Sacrum Continuous Continuous Sacrum Continuous Continuous Date of Last Bowel Movement 01/17/18 01/18/18 Narrative: Alert and awake Wound vac in place with good seal Chest and lung: Clear to auscultation status post tracheostomy on vent CVS S1-S2 regular rate and rhythm Abdomen is soft nontender extremity: Left foot dressing - Urinary Catheter Management Indwelling Urethral Catheter Cath placed during this visit: yes Reason for continuing: Severe pressure ulcer/wound Insertion date: 01/13/18 Insertion time: 01:00 1 Cath placed during this visit: yes, but has since been removed by the nurse Urethral indwelling: Yes Reason for continuing: Severe pressure ulcer/wound Insertion date: 12/15/17 Removal date: 01/13/18 Removal time: 01:00 Assessment and Plan - Assessment (1) MARIO (acute kidney injury) Code(s): N17.9 - Acute kidney failure, unspecified Status: Acute (2) Hypernatremia Code(s): E87.0 - Hyperosmolality and hypernatremia Status: Acute (3) Type 2 diabetes mellitus with hyperosmolar nonketotic hyperglycemia Code(s): E11.01 - Type 2 diabetes mellitus with hyperosmolarity with coma Status: Acute (4) Necrotizing fasciitis of pelvic region and thigh Code(s): M72.6 - Necrotizing fasciitis Status: Acute - Plan Patient was requiring frequent surgery and debridement getting IV fluids sodium has improved to 141 creatinine 0.8 Getting albumin 25 g every 6 hourly, free water flushes 200 cc every 4 hours, I will discontinue albumin today, Remains nonoliguric one fourth of normal saline at 84 cc an hour creatinine declined 0.8, change IV fluid to half-normal saline with 20 MEQ potassium follow BMP Potassium replaced 3.4 Patient is having sepsis and being observed in intensive care unit UTIs bacteria Pseudomonas ID is following Zosyn/vancomycin/metronidazole
[2018-01-18] MEDS: KCL 20 mEq/NACL 0.45% Inj 1,000 ML IV.CONT SCH (11:05)
--- NOTE | 2018-01-18 12:41 | P.PNID ---
Subjective Remarks: Patient transferred to [facility] [place] with respiratory distress, fever and altered mental status. Tachypneic with increased respiratory rate and tachycardic. She is awake and alert. Mouthing words. Yes no answers. Appears appropriate. No fever. Sputum and urine culture have pseudomonas. This is a 52-year-old white female who was brought to the emergency department after she fell at home. The patient was noted to have profound weakness. She was evaluated in the emergency department and at that time had normal temperature and white blood cell count was also normal. She underwent CT scan of the abdomen and pelvis that showed extensive subcutaneous and soft tissue gas bilaterally with the left greater than right, most severe in the left gluteal region and extending into the proximal posterior thigh soft tissue and air-fluid dissecting through the gluteal musculature. Antibiotics: Diflucan. Piperacillin/tazobactam Flagyl Allergies/Adverse Reactions: Allergies No Known Allergies Allergy (Verified 12/15/17 07:54) Objective Vital Signs 01/17/18 13:00 01/17/18 13:05 01/17/18 14:00 Temperature Pulse Rate 92 H 92 H 92 H Respiratory Rate 32 H 28 H 29 H Blood Pressure 137/76 Pulse Oximetry 100 100 100 01/17/18 14:05 01/17/18 15:00 01/17/18 15:05 Temperature Pulse Rate 86 94 H 91 H Respiratory Rate 28 H 31 H 30 H Blood Pressure 135/72 134/73 Pulse Oximetry 100 100 100 01/17/18 15:44 01/17/18 16:00 01/17/18 19:00 Temperature 98.6 F Pulse Rate 90 92 H 84 Respiratory Rate 27 H 28 H 24 Blood Pressure Pulse Oximetry 100 100 100 01/17/18 19:05 01/17/18 20:00 01/17/18 20:05 Temperature 98.8 F Pulse Rate 84 90 90 Respiratory Rate 24 26 H 27 H Blood Pressure 125/69 119/65 Pulse Oximetry 100 100 100 01/17/18 20:40 01/17/18 21:00 01/17/18 21:05 Temperature Pulse Rate 82 82 82 Respiratory Rate 24 16 20 Blood Pressure 130/77 Pulse Oximetry 100 100 100 01/17/18 22:00 01/17/18 22:05 01/17/18 23:00 Temperature Pulse Rate 88 85 82 Respiratory Rate Blood Pressure 120/64 Pulse Oximetry 100 100 100 01/17/18 23:05 01/18/18 00:00 01/18/18 00:05 Temperature 98.8 F Pulse Rate 84 82 83 Respiratory Rate Blood Pressure 116/64 123/68 Pulse Oximetry 100 100 100 01/18/18 00:15 01/18/18 00:22 01/18/18 01:00 Temperature 97.6 F Pulse Rate 75 71 85 Respiratory Rate 14 23 Blood Pressure Pulse Oximetry 99 100 100 01/18/18 01:05 01/18/18 02:00 01/18/18 02:05 Temperature Pulse Rate 86 88 84 Respiratory Rate Blood Pressure 116/63 132/68 Pulse Oximetry 100 100 100 01/18/18 03:00 01/18/18 03:05 01/18/18 04:00 Temperature 98.8 F Pulse Rate 82 83 82 Respiratory Rate 18 16 Blood Pressure 129/66 Pulse Oximetry 100 100 100 01/18/18 04:05 01/18/18 04:41 01/18/18 05:00 Temperature Pulse Rate 86 82 87 Respiratory Rate 23 14 Blood Pressure 126/66 Pulse Oximetry 100 100 100 01/18/18 05:05 01/18/18 06:00 01/18/18 06:05 Temperature Pulse Rate 84 84 83 Respiratory Rate 18 Blood Pressure 128/67 134/71 Pulse Oximetry 100 100 100 01/18/18 07:00 01/18/18 07:05 01/18/18 07:11 Temperature Pulse Rate 82 77 82 Respiratory Rate Blood Pressure 148/77 H Pulse Oximetry 100 100 100 01/18/18 07:57 01/18/18 08:00 01/18/18 08:09 Temperature 98.5 F Pulse Rate 86 84 Respiratory Rate 25 H 25 H Blood Pressure 115/67 137/70 Pulse Oximetry 100 100 01/18/18 08:15 01/18/18 08:30 01/18/18 08:45 Temperature Pulse Rate 95 H 96 H 93 H Respiratory Rate 25 H 22 Blood Pressure 119/70 129/77 133/74 Pulse Oximetry 100 100 100 01/18/18 09:00 01/18/18 09:15 01/18/18 09:30 Temperature Pulse Rate 89 90 88 Respiratory Rate 23 22 25 H Blood Pressure 134/72 140/75 143/75 H Pulse Oximetry 100 100 100 01/18/18 09:45 01/18/18 10:00 01/18/18 10:15 Temperature Pulse Rate 90 94 H 91 H Respiratory Rate 26 H 25 H 25 H Blood Pressure 143/71 H 143/74 H 124/62 Pulse Oximetry 100 100 100 01/18/18 10:30 01/18/18 10:45 01/18/18 11:00 Temperature Pulse Rate 84 79 84 Respiratory Rate 23 25 H 24 Blood Pressure 129/69 123/67 132/71 Pulse Oximetry 100 100 100 01/18/18 11:15 01/18/18 11:30 01/18/18 11:45 Temperature Pulse Rate 82 87 83 Respiratory Rate 23 25 H 24 Blood Pressure 122/65 132/72 125/70 Pulse Oximetry 100 100 100 01/18/18 12:00 01/18/18 12:15 Temperature 98.6 F Pulse Rate 86 87 Respiratory Rate 24 24 Blood Pressure 136/75 134/75 Pulse Oximetry 100 100 Intake & Output 01/17/18 01/18/18 01/18/18 18:59 06:59 18:59 Intake Total 3600.125 / 3600.125 712 / 712 509.625 / 509.625 Output Total 1100 / 1100 1050 / 1050 5 / 5 Balance 2500.125 / 2500.125 -338 / -338 504.625 / 504.625 Weight 68.5 kg Intake: IV 2742.125 / 2742.125 441 / 441 259.625 / 259.625 LR 1000 mL Inj 1,000 ML @ 50 1000 / 1000 mls/hr IV.CONT .Q20H [facility] Rx#: [id number] Neosynephrine Inj 40 MG In D5W 20 / 20 Inj 496 ML @ 40 MCG/MIN 30 mls/ hr IV.CONT TITRATE PRN Rx#: [id number] Sodium Chloride 23.4% Inj 38.5 809.625 / 809.625 191 / 191 109.625 / 109.625 MEQ In Sterile Water for Inj 1, 000 ML @ 84 mls/hr IV.CONT . Q12H2M [facility] Rx#:[id number] Flexbumin 25% Inj 100 ML @ 60 200 / 200 200 / 200 100 / 100 mls/hr IV.SIG Q6H [facility] Rx#: [id number] Diflucan 200 mg Premix Bag 100 300 / 300 ML @ 100 mls/hr IV.SIG Q24H [facility] Rx#:[id number] Zosyn 3.375 GM Premix 50 ML @ 150 / 150 50 / 50 50 / 50 100 mls/hr IV.SIG Q6H [facility] Rx#: [id number] Vancomycin Inj 1,250 MG In NS 262.5 / 262.5 Inj 250 ML @ 250 mls/hr IV.SIG Q24H [facility] Rx#:[id number] Tube Feeding 398 / 398 271 / 271 Tube Irrigant 60 / 60 Water Bolus Amount 400 / 400 Anesthesia Amount 250 / 250 Output: Stool 150 / 150 250 / 250 Estimated Blood Loss 5 / 5 Urine Amount (Catheter) 750 / 750 600 / 600 Indwelling Urethral Catheter 750 / 750 600 / 600 Wound Vac Amount 200 / 200 200 / 200 Posterior Sacrum 200 / 200 Sacrum 200 / 200 Other: Mode Setting Posterior Sacrum Continuous Continuous Continuous Sacrum Continuous Continuous Date of Last Bowel Movement 01/17/18 01/18/18 01/18/18 01/14/18 10:30 Blood - Peripheral Aerobic Blood Culture - Preliminary No growth in 4 days 01/14/18 10:30 Blood - Peripheral Anaerobic Blood Culture - Preliminary No growth in 4 days 01/14/18 10:35 Blood - Peripheral Aerobic Blood Culture - Preliminary No growth in 4 days 01/14/18 10:35 Blood - Peripheral Anaerobic Blood Culture - Preliminary No growth in 4 days 01/14/18 09:24 Sputum - Endotracheal Gram Stain - Final 01/14/18 09:24 Sputum - Endotracheal Sputum Culture - Final Pseudomonas aeruginosa 01/14/18 16:00 Catheterized Urine Urine Culture - Final Pseudomonas aeruginosa 12/24/17 12:20 Tissue - Buttock Acid Fast Bacilli Smear - Final No acid fast bacilli seen 12/24/17 12:20 Tissue - Buttock Mycobacterial Culture - Preliminary No growth in 3 weeks Lab - Hematology Results 01/18/18 04:45 WBC 9.0 RBC 2.49 L Hgb 7.5 L Hct 22.7 L MCV 91.0 MCH 30.3 MCHC 33.2 RDW 19.1 H Plt Count 233 MPV 11.2 H Lab - Chemistry Results 01/16/18 01/16/18 01/16/18 14:06 16:43 20:38 Sodium Potassium Chloride Carbon Dioxide Anion Gap BUN Creatinine Estimated GFR POC Glucose 113 H 80 301 H Random Glucose Calcium 01/16/18 01/16/18 01/17/18 20:45 22:42 01:18 Sodium Potassium Chloride Carbon Dioxide Anion Gap BUN Creatinine Estimated GFR POC Glucose 69 144 H 108 Random Glucose Calcium 01/17/18 01/17/18 01/17/18 04:57 05:19 09:06 Sodium Potassium Chloride Carbon Dioxide Anion Gap BUN Creatinine 0.92 Estimated GFR 64 L POC Glucose 117 H 154 H Random Glucose Calcium 01/17/18 01/17/18 01/17/18 12:37 17:54 20:20 Sodium Potassium Chloride Carbon Dioxide Anion Gap BUN Creatinine Estimated GFR POC Glucose 194 H 233 H 235 H Random Glucose Calcium 01/18/18 01/18/18 01/18/18 00:32 04:41 04:45 Sodium 141 Potassium 3.4 L Chloride 110 H Carbon Dioxide 21.5 Anion Gap 10 BUN 38 H Creatinine 0.83 Estimated GFR 72 L POC Glucose 209 H 170 H Random Glucose 159 H Calcium 7.7 L 01/18/18 08:32 Sodium Potassium Chloride Carbon Dioxide Anion Gap BUN Creatinine Estimated GFR POC Glucose 180 H Random Glucose Calcium Imaging: ITS Impressions Femur X-Ray 12/15/17 07:05 CONCLUSION: No fracture is identified. There is extensive soft tissue air in the right gluteal region and extending into the proximal and mid posterior thigh. The soft tissue air suggests an open wound. Pelvis X-Ray 12/15/17 07:05 CONCLUSION: No fracture is identified. However, there is extensive soft tissue air in the left gluteal region and left proximal thigh. Pelvis CT 12/15/17 07:52 CONCLUSION: 1. No fracture is identified. 2. Extensive subcutaneous and soft tissue gas bilaterally, left greater than right. It is most severe in the left gluteal region and extends into the proximal posterior thigh. The soft tissue air dissects through the gluteal musculature. There is adjacent subcutaneous edema. Foot X-Ray 12/18/17 00:00 CONCLUSION: Remote small avulsion fracture at the fifth toe. No acute bony abnormality. Venous Doppler Study 12/22/17 00:00 CONCLUSION: Extensive deep vein thrombosis of the left upper extremity. Abdomen X-Ray 01/08/18 00:08 CONCLUSION: Feeding tube tip is in the region of the distal stomach Chest X-Ray 01/14/18 00:00 CONCLUSION: 1. Tubes and lines, as above. 2. Slight improved aeration of the lower lung zones with persistent mild patchy airspace disease and probable trace left pleural effusion. Physical Exam: PHYSICAL EXAMINATION: GENERAL: Awake. No distress. HEENT: Pale sclera. No icterus. NECK: Supple. No adenopathy or swelling. LUNGS: Decreased breath sounds. Scattered rhonchi. HEART: irregular S1 and S2. 1-2/6 systolic murmur at the left sternal border. ABDOMEN: Bowel sounds present, soft. BACK: Surgical wound post debridement across the lower back, buttock and thigh. Vac in place. EXTREMITIES: No clubbing, no cyanosis or edema. abrasion with dry necrotic changes at left dorsal toes 2-4. SKIN: No diffuse rash. Scattered ecchymotic lesions. NEUROLOGIC: Unable to assess. PSYCHIATRIC: Calm. Assessment and Plan - Plan IMPRESSION: 1. Necrotizing fasciitis of the back, buttock and thigh. Talia albicans and Talia tropicalis. 2. Septic shock. Responded to broad-spectrum antibiotics. 3. Acute respiratory failure. 4. Chronic kidney disease. 5. Leukocytosis. Improved. 6. UTI - pseudomonas. 7. New episode of sepsis. 8. PNA pseudomonas. Probable aspiration. RECOMMENDATIONS: 1. Continue Diflucan. 2. Continue Flagyl p.o. empiric anaerobic coverage. 3. Continue Zosyn.
--- NOTE | 2018-01-18 18:59 | P.PNCC ---
Subjective Subjective Remarks/Hospital Course: Note for 01/05/18: This 52-year-old woman with long-standing uncontrolled diabetes mellitus and severe peripheral arterial disease related to a long-term heavy smoking history was found down at her home and initial blood glucose was 610. Her lower back and buttocks was exquisitely tender and a mid line stage IV sacral decubitus was oozing purulent material and inflamed and the surrounding soft tissue. White count was not elevated but 90% neutrophils. Temperature 97 degrees. Moderately encephalopathic though conversant. X-rays revealed no fractures in the pelvis but CAT scan demonstrated extensive subcutaneous air emanating in both directions left and right from the mid sacral region. This is clearly necrotizing fasciitis or some other gas-forming infection and the woman is critically ill. She received vancomycin, Zosyn, and clindamycin antibiotic therapy as quickly as possible and was transferred to the ICU for ongoing resuscitation. Because of worsening hemodynamic stability she required intubation and mechanical ventilation followed by central line placement on arrival to the ICU. Insulin drip infusion was started in the emergency department and glucose had declined into the low 400s. She was not in ketoacidosis but lactic acid was elevated at 3.1. General surgery and orthopedic surgery were consulted for recommendations and it was felt that this woman was too unstable to tolerate an operative procedure immediately. We continue her ongoing resuscitation and trial in the ICU at this stage. 12/16: Following aggressive resuscitation yesterday for the treatment of severe hyperglycemia, septic shock, respiratory failure, metabolic acidosis, acute kidney injury, the patient went to the operating room with an extensive wide debridement bilateral gluteal and left thigh soft tissue and muscle. Primary antibiotic coverage at this point is vancomycin, cefepime, clindamycin. The patient started to make urine late yesterday afternoon and has continued to acceptable output since. Lactic acidosis is 2.0 this morning but metabolic acidosis persists despite bicarb drip. She remains on vasopressor support and hemodynamically unstable. 12/17: s/p debridement of large nec fasc wound. remains in shock today. also very hypoglycemic requiring multiple D50 amps overnight. 12/18: back in worsening shock. vasopressor support higher. required 2L crystalloid overnight and additional 1L and 500cc albumin today. ivc completely flat on bedside echo. LVEF hyperdynamic. no pericardial effusion. spoken with gen surg. plan to go back early to eval for worsening necrosis. fio2 also up to 100% and peep 10- hypoxic, likely early ARDS. 12/19: clinically doing better. still in shock on vasopressors, but requirements are lower and lactate cleared. Cr slowly uptrending. SVV still 19% today and appears to be volume responsive. gen surgery ordered 2 units prbc for falling hgb in the setting of blood loss with surgical intervention yesterday. fio2 improving. glycemic control also improving. 12/20: Markedly impaired oxygenation persists. Still requiring elevated end expiratory pressure. Nutritional support continues but she remains catabolic. It will be difficult to keep up with her nutritional needs. 12/21: Continued severe sepsis requiring vasopressor support and mechanical ventilation. Oxygenation remains impaired and smoldering metabolic acidosis persists. Despite hemodynamic instability the patient's only hope for survival is with infection source control through further debridement. Clearly a greatly increased risk however for any procedure. 12/22: Persistent septic shock course requiring vasopressor support and regular debridement. Good antibiotic coverage but she continues to require adjustment of ventilator, hemodynamic support drugs, antibiotics, intravenous fluids. Her nutritional status was quite depleted on arrival and continues to deteriorate despite adjuvant nutrition. 12/23: Patient continues septic course. She has developed venous clot throughout her left internal jugular subclavian and axillary vein system. Not a candidate for full anticoagulation because of need for frequent surgical debridement. We will pull out the catheter today and placing In the right subclavian route. 12/24 remains critically ill and septic remains on Rj-Synephrine at 50 mcg/kg/ min. WBC count increasing 20 6K today. Antibiotics have been changed by ID. Diflucan added for Talia UTI. Plan for OR today per surgery 12/25: Went to OR yesterday, s/p Incision, drainage with excisional debridement of back, buttock, thigh, and VAC change. Main septic White count increasing 31, 000 today, remains on pressors vasopressin and Rj-Synephrine. 12/26: Remains critical remains on vasopressin to maintain blood pressure and map above 65, currently off Rj-Synephrine. Remains severely fluid overloaded approximately 20 kg up. Despite pressor use will start IV diuretics to achieve negative fluid balance 12/27: Intubated sedated but more awake follows some commands. Hemoglobin down to 6.4, 2 g dropped, receiving 2 units of PRBC. No obvious bleeding noted. Currently had been weaned off the pressors. Or planned for tomorrow again 12/28: OR today for wound VAC change and I&D, possible tracheostomy. Potassium is 2.6 getting replaced. Hemoglobin stable. Remains off pressors. Urine output almost 8 L with forced diuresis 12/29: Status post OR for wound VAC change in tracheostomy yesterday. Getting for his diuresis urine output more than 4 L in 24 hours. Remains intubated sedated intermittently follows commands. Plan for I&D wound VAC change again on Saturday 12/30: Remains intubated sedated more stable. Urine output remains excellent with diuresis. Plan for OR in a.m. for further I&D and VAC change 12/31: Patient remains intubated plan for OR today with Dr. Muir for further I&D and wound VAC change. Making urine more than 4 L in 24 hours with diuresis. Getting closer to admission weight. Potassium 3.3 getting replacement 01/01: Remains intubated sedated failing CPAP due to low tidal volumes. Status post OR yesterday for the I&D tomorrow planned by general surgery. Urine output 3 L in 24 hours 01/02: Potassium being replaced. Ready for OR today. Return from the OR with stable hemodynamics on mechanical ventilation. 01/03: Attempted spontaneous breathing trials today and converted to T piece. We will continue this method of weaning. Nutrition infusing and well- tolerated. Severity of wound will require a lengthy hospitalization. 01/04: Nasogastric tube is out. She is much more alert and we will try a swallow evaluation before replacing. Contraction alkalosis is developing with diuretics, will add a carbonic anhydrase inhibitor. 01/05: Breathing comfortably on T-piece. Failed swallow eval. Will need to replace nasogastric tube or Dobbhoff for nutrition. 01/06: Alert interactive. Failed swallow eval possibly due to the distortion of the trach cuff. Continue feeding through Dobbhoff tube. Patient is stable to go to floor now. Fentanyl drip converted to fentanyl patch. Adequately diuresed of post edema, discontinue diuretics and replace potassium. After K replaced add lisinopril now that GFR back to normal. 01/07 - 01/13: Patient undergoing care on floor with continuous tube feeding and serial surgical debridements. Wound VAC in place. 01/14: Patient developed temperature of 103 with sustained tachycardia and obtundation. She clearly appears septic. Cultures have been ordered by the floor staff and resuscitation with isotonic crystalloid has begun in the ICU. Her abdomen is soft and her chest x-ray is clear. She has no indwelling lines. The likely culprit is the depths of the wound and/or stool contamination. 01/15: Patient underwent debridement of the lumbar wounds yesterday. She is still requiring vasopressor therapy to support her blood pressure and mechanical ventilation for respiratory failure. She remains critically ill. 01/16: Remains on mechanical ventilation via tracheostomy. Tolerating CPAP trial. Off pressors since yesterday. 01/17: Remains on mechanical ventilation via tracheostomy. Tolerating CPAP trial with pressure support +10 however gets tachypneic on lowering pressor support. 01/18: Debridement/washout of lumbar wounds done today. Remains on mechanical ventilation via tracheostomy. Objective Vital Signs / I&O: Vital Signs 01/17/18 19:00 01/17/18 19:05 01/17/18 20:00 Temperature 98.8 F Pulse Rate 84 84 90 Respiratory Rate 24 24 26 H Blood Pressure 125/69 Pulse Oximetry 100 100 100 01/17/18 20:05 01/17/18 20:40 01/17/18 21:00 Temperature Pulse Rate 90 82 82 Respiratory Rate 27 H 24 16 Blood Pressure 119/65 Pulse Oximetry 100 100 100 01/17/18 21:05 01/17/18 22:00 01/17/18 22:05 Temperature Pulse Rate 82 88 85 Respiratory Rate 20 Blood Pressure 130/77 120/64 Pulse Oximetry 100 100 100 01/17/18 23:00 01/17/18 23:05 01/18/18 00:00 Temperature 98.8 F Pulse Rate 82 84 82 Respiratory Rate Blood Pressure 116/64 Pulse Oximetry 100 100 100 01/18/18 00:05 01/18/18 00:15 01/18/18 00:22 Temperature 97.6 F Pulse Rate 83 75 71 Respiratory Rate 14 23 Blood Pressure 123/68 Pulse Oximetry 100 99 100 01/18/18 01:00 01/18/18 01:05 01/18/18 02:00 Temperature Pulse Rate 85 86 88 Respiratory Rate Blood Pressure 116/63 Pulse Oximetry 100 100 100 01/18/18 02:05 01/18/18 03:00 01/18/18 03:05 Temperature Pulse Rate 84 82 83 Respiratory Rate 18 Blood Pressure 132/68 129/66 Pulse Oximetry 100 100 100 01/18/18 04:00 01/18/18 04:05 01/18/18 04:41 Temperature 98.8 F Pulse Rate 82 86 82 Respiratory Rate 16 23 Blood Pressure 126/66 Pulse Oximetry 100 100 100 01/18/18 05:00 01/18/18 05:05 01/18/18 06:00 Temperature Pulse Rate 87 84 84 Respiratory Rate 14 18 Blood Pressure 128/67 Pulse Oximetry 100 100 100 01/18/18 06:05 01/18/18 07:00 01/18/18 07:05 Temperature Pulse Rate 83 82 77 Respiratory Rate Blood Pressure 134/71 148/77 H Pulse Oximetry 100 100 100 01/18/18 07:11 01/18/18 07:57 01/18/18 08:00 Temperature 98.5 F Pulse Rate 82 86 Respiratory Rate 25 H Blood Pressure 115/67 Pulse Oximetry 100 100 01/18/18 08:09 01/18/18 08:15 01/18/18 08:30 Temperature Pulse Rate 84 95 H 96 H Respiratory Rate 25 H 25 H Blood Pressure 137/70 119/70 129/77 Pulse Oximetry 100 100 100 01/18/18 08:45 01/18/18 09:00 01/18/18 09:15 Temperature Pulse Rate 93 H 89 90 Respiratory Rate 22 23 22 Blood Pressure 133/74 134/72 140/75 Pulse Oximetry 100 100 100 01/18/18 09:30 01/18/18 09:45 01/18/18 10:00 Temperature Pulse Rate 88 90 94 H Respiratory Rate 25 H 26 H 25 H Blood Pressure 143/75 H 143/71 H 143/74 H Pulse Oximetry 100 100 100 01/18/18 10:15 01/18/18 10:30 01/18/18 10:45 Temperature Pulse Rate 91 H 84 79 Respiratory Rate 25 H 23 25 H Blood Pressure 124/62 129/69 123/67 Pulse Oximetry 100 100 100 01/18/18 11:00 01/18/18 11:15 01/18/18 11:30 Temperature Pulse Rate 84 82 87 Respiratory Rate 24 23 25 H Blood Pressure 132/71 122/65 132/72 Pulse Oximetry 100 100 100 01/18/18 11:45 01/18/18 12:00 01/18/18 12:15 Temperature 98.6 F Pulse Rate 83 86 87 Respiratory Rate 24 24 24 Blood Pressure 125/70 136/75 134/75 Pulse Oximetry 100 100 100 01/18/18 12:30 01/18/18 12:45 01/18/18 13:00 Temperature Pulse Rate 88 86 89 Respiratory Rate 24 23 25 H Blood Pressure 128/70 119/75 118/65 Pulse Oximetry 100 100 100 01/18/18 13:15 01/18/18 13:30 01/18/18 13:45 Temperature Pulse Rate 92 H 91 H 84 Respiratory Rate 25 H 25 H 17 Blood Pressure 113/61 111/61 113/63 Pulse Oximetry 100 100 100 01/18/18 14:00 01/18/18 14:15 01/18/18 14:45 Temperature Pulse Rate 85 87 Respiratory Rate 24 25 H Blood Pressure 112/63 110/64 151/81 H Pulse Oximetry 100 100 100 01/18/18 15:00 01/18/18 15:15 01/18/18 15:30 Temperature Pulse Rate 81 82 80 Respiratory Rate 24 23 24 Blood Pressure 147/74 H 148/74 H 140/72 Pulse Oximetry 100 100 100 01/18/18 15:45 01/18/18 16:00 01/18/18 16:15 Temperature 98.8 F Pulse Rate 84 81 85 Respiratory Rate 25 H 27 H 24 Blood Pressure 140/73 150/77 H 157/78 H Pulse Oximetry 100 100 100 01/18/18 16:30 01/18/18 16:40 01/18/18 16:45 Temperature Pulse Rate 79 86 Respiratory Rate 26 H 28 H 25 H Blood Pressure 160/77 H 139/68 Pulse Oximetry 100 100 100 01/18/18 17:00 01/18/18 17:15 01/18/18 17:30 Temperature Pulse Rate 88 86 87 Respiratory Rate 26 H 26 H 28 H Blood Pressure 148/71 H 156/74 H 167/73 H Pulse Oximetry 100 100 100 01/18/18 17:45 01/18/18 18:00 01/18/18 18:15 Temperature Pulse Rate 86 88 83 Respiratory Rate 25 H 24 26 H Blood Pressure 145/67 H 148/62 H 134/56 L Pulse Oximetry 100 100 100 Intake & Output 01/17/18 01/18/18 01/18/18 18:59 06:59 18:59 Intake Total 3600.125 / 3600.125 712 / 712 1317.625 / 1317.625 Output Total 1100 / 1100 1050 / 1050 1605 / 1605 Balance 2500.125 / 2500.125 -338 / -338 -287.375 / -287.375 Weight 68.5 kg Intake: IV 2742.125 / 2742.125 441 / 441 559.625 / 559.625 LR 1000 mL Inj 1,000 ML @ 50 1000 / 1000 mls/hr IV.CONT .Q20H [facility] Rx#: [id number] Neosynephrine Inj 40 MG In D5W 20 / 20 Inj 496 ML @ 40 MCG/MIN 30 mls/ hr IV.CONT TITRATE PRN Rx#: [id number] Sodium Chloride 23.4% Inj 38.5 809.625 / 809.625 191 / 191 109.625 / 109.625 MEQ In Sterile Water for Inj 1, 000 ML @ 84 mls/hr IV.CONT . Q12H2M [facility] Rx#:[id number] Flexbumin 25% Inj 100 ML @ 60 200 / 200 200 / 200 100 / 100 mls/hr IV.SIG Q6H [facility] Rx#: [id number] Diflucan 200 mg Premix Bag 100 300 / 300 200 / 200 ML @ 100 mls/hr IV.SIG Q24H [facility] Rx#:[id number] Zosyn 3.375 GM Premix 50 ML @ 150 / 150 50 / 50 150 / 150 100 mls/hr IV.SIG Q6H [facility] Rx#: [id number] Vancomycin Inj 1,250 MG In NS 262.5 / 262.5 Inj 250 ML @ 250 mls/hr IV.SIG Q24H [facility] Rx#:[id number] Tube Feeding 398 / 398 271 / 271 508 / 508 Tube Irrigant 60 / 60 Water Bolus Amount 400 / 400 Anesthesia Amount 250 / 250 Output: Stool 150 / 150 250 / 250 700 / 700 Estimated Blood Loss 5 / 5 Urine Amount (Catheter) 750 / 750 600 / 600 700 / 700 Indwelling Urethral Catheter 750 / 750 600 / 600 700 / 700 Wound Vac Amount 200 / 200 200 / 200 200 / 200 Posterior Sacrum 200 / 200 200 / 200 Sacrum 200 / 200 Other: Mode Setting Posterior Sacrum Continuous Continuous Continuous Sacrum Continuous Continuous Date of Last Bowel Movement 01/17/18 01/18/18 01/18/18 Result Diagrams: 01/18/18 04:45 01/18/18 04:45 Objective Remarks: General: Very ill-appearing middle-aged woman, on mechanical ventilation via tracheostomy. Head: Atraumatic, edentulous Neck: Supple, trach site clean, dry. Lungs: Mcrae clear, on mechanical ventilation air movement good bilaterally Heart: Tachycardic rate and regular rhythm. Neck veins are not distended. Abdomen: Soft, no guarding, no peritoneal irritation. Bowel sounds are present. Back: Wound VAC remains in place over lower bilateral lumbar region. Extremities: Warm, well perfused, status post below-knee amputation right side. Skin remains wrinkled. Neurological: Tracheostomy, withdraws 4 limbs to stimulation. Pupils 2 mm, reactive. Tracks with eyes. Assessment and Plan - Problem List (1) Septic shock with acute organ dysfunction due to anaerobic bacteria Code(s): A41.4 - Sepsis due to anaerobes; R65.21 - Severe sepsis with septic shock Status: Acute (2) Acute respiratory failure Code(s): J96.00 - Acute respiratory failure, unspecified whether with hypoxia or hypercapnia Status: Acute (3) Necrotizing fasciitis Code(s): M72.6 - Necrotizing fasciitis Status: Acute (4) Type 2 diabetes mellitus with hyperosmolar nonketotic hyperglycemia Code(s): E11.01 - Type 2 diabetes mellitus with hyperosmolarity with coma Status: Acute (5) MARIO (acute kidney injury) Code(s): N17.9 - Acute kidney failure, unspecified Status: Acute (6) Lactic acidosis Code(s): E87.2 - Acidosis Status: Acute - Assessment and Plan Plan: Assessment: 52yF with large necrotizing soft tissue infection of the lower back and sacrum complicated by septic shock and multiorgan dysfunction. Returns to ICU in florid sepsis Plan: Neurological Acute metabolic encephalopathy From sepsis. Cardiovascular Septic Shock- improving Myocardial dysfunction secondary to septic shock Fluid overload Levophed for pressor support as needed. Respiratory Acute hypoxic and hypercarbic respiratory failure- persistent - s/p Trach in OR 12/28/17. -Mechanical ventilation assist control mode. Endocrinology Diabetes Severe hypoglycemia - Med scale SSI. - Follow potassium and magnesium closely - Exacerbated by sepsis. Hematology/Infectious Disease Septic Shock Necrotizing soft tissue infection - Follow white count and platelet count closely. - Continue daptomycin and Zosyn. Diflucan for fungal coverage. -We will ask surgery to see. GI Acute protein calorie malnutrition- severe - prealbumin 5 on 12/18. severely malnourished. - daily bmp, mg, phos - Tube feeds infusing, tolerated - Follow prealbumin weekly -Dignishield placed to protect wounds from soilage. Acute kidney injury - Tristan required for hourly urine output and to protect perineal region HEME Left upper extremity DVT - DVT left internal jugular, subclavian, axillary and distal arm veins. - Cannot anticoagulate secondary to blood loss anemia requiring blood transfusion, frequent surgeries Prophylaxis - Pepcid for GI ulcer prophylaxis - SCDs for DVT prophylaxis - chemical DVT prophylaxis with lovenox Lines: PIV Overall impression: This woman was initially critically ill and in septic shock with necrotizing fasciitis emanating from a deep chronic sacral decubitus ulcer. She has required multiple OR trips for I&D and VAC changes. Family request continued aggressive care. She returns to the ICU 01/14 in severe sepsis with encephalopathy and unstable hemodynamics.
[2018-01-19] MEDS: Oral Hygiene Kit OROPHARYNG SCH ×4 (00:18→15:08)
[2018-01-19] MEDS: Insulin NovoLIN Regular Correctional Sugar Inj SQ SCH ×6 (00:18→21:30)
[2018-01-19] MEDS: KCL 20 mEq/NACL 0.45% Inj 1,000 ML IV.CONT SCH ×3 (01:08→23:43)
[2018-01-19] MEDS: Piperacil/Tazo 3.375 GM Premix 50 ML IV.SIG SCH ×4 (02:06→18:00)
[2018-01-19 05:19] LABS: Calcium 8.5 mg/dL (8.5-10.1); Carbon Dioxide 20.9 meq/L (21.0-32.0); Magnesium 2.3 mg/dL (1.5-2.5); Phosphorus 1.4 mg/dL (2.5-4.9); Potassium 4.5 meq/L (3.5-5.1)
[2018-01-19] MEDS: Dextrose 50% in Water 50 ML Vial IV.PUSH PRN ×2 (05:40→11:26)
[2018-01-19] MEDS: metroNIDAZOLE 500 MG Tablet NG/OG SCH ×3 (05:41→21:30)
[2018-01-19] MEDS ORDERED: Magnesium Oxide 400 MG Tablet PO PRN (06:20)
[2018-01-19] MEDS ORDERED: Potassium Chloride 25 MEQ Effervescent Tablet PO PRN (06:20)
[2018-01-19] MEDS ORDERED: Potassium Phosphate Inj 30 MMOL in Sodium Chlor 0.9% Inj 250 ML IV.SIG PRN (06:20)
[2018-01-19] MEDS ORDERED: Potassium Chlor 40 mEq Premix 40 MEQ/100 ML PIGGYBACK IV.SIG PRN ×2 (06:20)
[2018-01-19] MEDS ORDERED: Magnesium Sulfate Inj 4 GM in Sodium Chlor 0.9% Inj 92 ML IV.SIG PRN (06:20)
[2018-01-19] MEDS ORDERED: Potassium Phosphate 500 MG Soluble Tablet PO PRN ×2 (06:20)
[2018-01-19] MEDS ORDERED: Potassium Chlor 20 mEq Premix 20 MEQ/100 ML PIGGYBACK IV.SIG PRN ×2 (06:20)
[2018-01-19] MEDS ORDERED: Magnesium Sulfate Inj 2 GM in Sodium Chlor 0.9% Inj 96 ML IV.SIG PRN (06:20)
[2018-01-19] MEDS ORDERED: Sodium Phosphate Inj 30 MMOL in Sodium Chlor 0.9% Inj 250 ML IV.SIG PRN (06:20)
[2018-01-19] MEDS ORDERED: Sodium Glycerophosphate Inj 30 MMOL in Sodium Chlor 0.9% Inj 250 ML IV.SIG ONE (08:00)
[2018-01-19] MEDS: Senna/Docusate Sodium 8.6/50 MG Tablet NG/OG SCH ×2 (08:07→20:20)
[2018-01-19] MEDS: Potassium Bicarbonate 25 MEQ Effervescent Tablet NG/OG SCH ×2 (08:13→20:21)
[2018-01-19] MEDS: Enoxaparin Inj 30 MG/0.3 ML Syringe SQ SCH (08:13)
[2018-01-19] MEDS: Metoprolol Tartrate 50 MG Tablet NG/OG SCH ×2 (08:14→20:20)
[2018-01-19] MEDS: hydrALAZINE 50 MG Tablet NG/OG SCH ×3 (08:14→18:00)
[2018-01-19] MEDS: Potassium Phosphate 500 MG Soluble Tablet NG/OG SCH ×2 (08:14→21:29)
[2018-01-19] MEDS: Lansoprazole ODT 15 MG Tablet NG/OG SCH (08:14)
[2018-01-19] MEDS: Lisinopril 5 MG Tablet NG/OG SCH (08:14)
[2018-01-19] MEDS: Chlorhexidine 0.12% Oral Kit 15 ML UDC OROPHARYNG SCH ×2 (08:14→21:30)
[2018-01-19] MEDS: Collagenase Oint 30 GM Tube TOPICAL SCH (08:16)
--- NOTE | 2018-01-19 09:51 | P.PNCC ---
Subjective Subjective Remarks/Hospital Course: Note for 01/05/18: This 52-year-old woman with long-standing uncontrolled diabetes mellitus and severe peripheral arterial disease related to a long-term heavy smoking history was found down at her home and initial blood glucose was 610. Her lower back and buttocks was exquisitely tender and a mid line stage IV sacral decubitus was oozing purulent material and inflamed and the surrounding soft tissue. White count was not elevated but 90% neutrophils. Temperature 97 degrees. Moderately encephalopathic though conversant. X-rays revealed no fractures in the pelvis but CAT scan demonstrated extensive subcutaneous air emanating in both directions left and right from the mid sacral region. This is clearly necrotizing fasciitis or some other gas-forming infection and the woman is critically ill. She received vancomycin, Zosyn, and clindamycin antibiotic therapy as quickly as possible and was transferred to the ICU for ongoing resuscitation. Because of worsening hemodynamic stability she required intubation and mechanical ventilation followed by central line placement on arrival to the ICU. Insulin drip infusion was started in the emergency department and glucose had declined into the low 400s. She was not in ketoacidosis but lactic acid was elevated at 3.1. General surgery and orthopedic surgery were consulted for recommendations and it was felt that this woman was too unstable to tolerate an operative procedure immediately. We continue her ongoing resuscitation and trial in the ICU at this stage. 12/16: Following aggressive resuscitation yesterday for the treatment of severe hyperglycemia, septic shock, respiratory failure, metabolic acidosis, acute kidney injury, the patient went to the operating room with an extensive wide debridement bilateral gluteal and left thigh soft tissue and muscle. Primary antibiotic coverage at this point is vancomycin, cefepime, clindamycin. The patient started to make urine late yesterday afternoon and has continued to acceptable output since. Lactic acidosis is 2.0 this morning but metabolic acidosis persists despite bicarb drip. She remains on vasopressor support and hemodynamically unstable. 12/17: s/p debridement of large nec fasc wound. remains in shock today. also very hypoglycemic requiring multiple D50 amps overnight. 12/18: back in worsening shock. vasopressor support higher. required 2L crystalloid overnight and additional 1L and 500cc albumin today. ivc completely flat on bedside echo. LVEF hyperdynamic. no pericardial effusion. spoken with gen surg. plan to go back early to eval for worsening necrosis. fio2 also up to 100% and peep 10- hypoxic, likely early ARDS. 12/19: clinically doing better. still in shock on vasopressors, but requirements are lower and lactate cleared. Cr slowly uptrending. SVV still 19% today and appears to be volume responsive. gen surgery ordered 2 units prbc for falling hgb in the setting of blood loss with surgical intervention yesterday. fio2 improving. glycemic control also improving. 12/20: Markedly impaired oxygenation persists. Still requiring elevated end expiratory pressure. Nutritional support continues but she remains catabolic. It will be difficult to keep up with her nutritional needs. 12/21: Continued severe sepsis requiring vasopressor support and mechanical ventilation. Oxygenation remains impaired and smoldering metabolic acidosis persists. Despite hemodynamic instability the patient's only hope for survival is with infection source control through further debridement. Clearly a greatly increased risk however for any procedure. 12/22: Persistent septic shock course requiring vasopressor support and regular debridement. Good antibiotic coverage but she continues to require adjustment of ventilator, hemodynamic support drugs, antibiotics, intravenous fluids. Her nutritional status was quite depleted on arrival and continues to deteriorate despite adjuvant nutrition. 12/23: Patient continues septic course. She has developed venous clot throughout her left internal jugular subclavian and axillary vein system. Not a candidate for full anticoagulation because of need for frequent surgical debridement. We will pull out the catheter today and placing In the right subclavian route. 12/24 remains critically ill and septic remains on Rj-Synephrine at 50 mcg/kg/ min. WBC count increasing 20 6K today. Antibiotics have been changed by ID. Diflucan added for Talia UTI. Plan for OR today per surgery 12/25: Went to OR yesterday, s/p Incision, drainage with excisional debridement of back, buttock, thigh, and VAC change. Main septic White count increasing 31, 000 today, remains on pressors vasopressin and Rj-Synephrine. 12/26: Remains critical remains on vasopressin to maintain blood pressure and map above 65, currently off Rj-Synephrine. Remains severely fluid overloaded approximately 20 kg up. Despite pressor use will start IV diuretics to achieve negative fluid balance 12/27: Intubated sedated but more awake follows some commands. Hemoglobin down to 6.4, 2 g dropped, receiving 2 units of PRBC. No obvious bleeding noted. Currently had been weaned off the pressors. Or planned for tomorrow again 12/28: OR today for wound VAC change and I&D, possible tracheostomy. Potassium is 2.6 getting replaced. Hemoglobin stable. Remains off pressors. Urine output almost 8 L with forced diuresis 12/29: Status post OR for wound VAC change in tracheostomy yesterday. Getting for his diuresis urine output more than 4 L in 24 hours. Remains intubated sedated intermittently follows commands. Plan for I&D wound VAC change again on Saturday 12/30: Remains intubated sedated more stable. Urine output remains excellent with diuresis. Plan for OR in a.m. for further I&D and VAC change 12/31: Patient remains intubated plan for OR today with Dr. Muir for further I&D and wound VAC change. Making urine more than 4 L in 24 hours with diuresis. Getting closer to admission weight. Potassium 3.3 getting replacement 01/01: Remains intubated sedated failing CPAP due to low tidal volumes. Status post OR yesterday for the I&D tomorrow planned by general surgery. Urine output 3 L in 24 hours 01/02: Potassium being replaced. Ready for OR today. Return from the OR with stable hemodynamics on mechanical ventilation. 01/03: Attempted spontaneous breathing trials today and converted to T piece. We will continue this method of weaning. Nutrition infusing and well- tolerated. Severity of wound will require a lengthy hospitalization. 01/04: Nasogastric tube is out. She is much more alert and we will try a swallow evaluation before replacing. Contraction alkalosis is developing with diuretics, will add a carbonic anhydrase inhibitor. 01/05: Breathing comfortably on T-piece. Failed swallow eval. Will need to replace nasogastric tube or Dobbhoff for nutrition. 01/06: Alert interactive. Failed swallow eval possibly due to the distortion of the trach cuff. Continue feeding through Dobbhoff tube. Patient is stable to go to floor now. Fentanyl drip converted to fentanyl patch. Adequately diuresed of post edema, discontinue diuretics and replace potassium. After K replaced add lisinopril now that GFR back to normal. 01/07 - 01/13: Patient undergoing care on floor with continuous tube feeding and serial surgical debridements. Wound VAC in place. 01/14: Patient developed temperature of 103 with sustained tachycardia and obtundation. She clearly appears septic. Cultures have been ordered by the floor staff and resuscitation with isotonic crystalloid has begun in the ICU. Her abdomen is soft and her chest x-ray is clear. She has no indwelling lines. The likely culprit is the depths of the wound and/or stool contamination. 01/15: Patient underwent debridement of the lumbar wounds yesterday. She is still requiring vasopressor therapy to support her blood pressure and mechanical ventilation for respiratory failure. She remains critically ill. 01/16: Remains on mechanical ventilation via tracheostomy. Tolerating CPAP trial. Off pressors since yesterday. 01/17: Remains on mechanical ventilation via tracheostomy. Tolerating CPAP trial with pressure support +10 however gets tachypneic on lowering pressor support. 01/18: Debridement/washout of lumbar wounds done today. Remains on mechanical ventilation via tracheostomy. 01/19: She tolerated her debridement yesterday well and is back on spontaneous breathing trials this morning at 10/5. She looks comfortable and we will try to get her to T-piece today. Objective Vital Signs / I&O: Vital Signs 01/18/18 09:45 01/18/18 10:00 01/18/18 10:15 Temperature Pulse Rate 90 94 H 91 H Respiratory Rate 26 H 25 H 25 H Blood Pressure 143/71 H 143/74 H 124/62 Pulse Oximetry 100 100 100 01/18/18 10:30 01/18/18 10:45 01/18/18 11:00 Temperature Pulse Rate 84 79 84 Respiratory Rate 23 25 H 24 Blood Pressure 129/69 123/67 132/71 Pulse Oximetry 100 100 100 01/18/18 11:15 01/18/18 11:30 01/18/18 11:45 Temperature Pulse Rate 82 87 83 Respiratory Rate 23 25 H 24 Blood Pressure 122/65 132/72 125/70 Pulse Oximetry 100 100 100 01/18/18 12:00 01/18/18 12:15 01/18/18 12:30 Temperature 98.6 F Pulse Rate 86 87 88 Respiratory Rate 24 24 24 Blood Pressure 136/75 134/75 128/70 Pulse Oximetry 100 100 100 01/18/18 12:45 01/18/18 13:00 01/18/18 13:15 Temperature Pulse Rate 86 89 92 H Respiratory Rate 23 25 H 25 H Blood Pressure 119/75 118/65 113/61 Pulse Oximetry 100 100 100 01/18/18 13:30 01/18/18 13:45 01/18/18 14:00 Temperature Pulse Rate 91 H 84 85 Respiratory Rate 25 H 17 24 Blood Pressure 111/61 113/63 112/63 Pulse Oximetry 100 100 100 01/18/18 14:15 01/18/18 14:45 01/18/18 15:00 Temperature Pulse Rate 87 81 Respiratory Rate 25 H 24 Blood Pressure 110/64 151/81 H 147/74 H Pulse Oximetry 100 100 100 01/18/18 15:15 01/18/18 15:30 01/18/18 15:45 Temperature Pulse Rate 82 80 84 Respiratory Rate 23 24 25 H Blood Pressure 148/74 H 140/72 140/73 Pulse Oximetry 100 100 100 01/18/18 16:00 01/18/18 16:15 01/18/18 16:30 Temperature 98.8 F Pulse Rate 81 85 79 Respiratory Rate 27 H 24 26 H Blood Pressure 150/77 H 157/78 H 160/77 H Pulse Oximetry 100 100 100 01/18/18 16:40 01/18/18 16:45 01/18/18 17:00 Temperature Pulse Rate 86 88 Respiratory Rate 28 H 25 H 26 H Blood Pressure 139/68 148/71 H Pulse Oximetry 100 100 100 01/18/18 17:15 01/18/18 17:30 01/18/18 17:45 Temperature Pulse Rate 86 87 86 Respiratory Rate 26 H 28 H 25 H Blood Pressure 156/74 H 167/73 H 145/67 H Pulse Oximetry 100 100 100 01/18/18 18:00 01/18/18 18:15 01/18/18 19:00 Temperature Pulse Rate 88 83 Respiratory Rate 24 26 H Blood Pressure 148/62 H 134/56 L Pulse Oximetry 100 100 100 01/18/18 20:00 01/18/18 20:15 01/18/18 20:28 Temperature 99.1 F Pulse Rate 88 89 Respiratory Rate 21 23 22 Blood Pressure 133/69 133/61 Pulse Oximetry 100 100 100 01/18/18 20:30 01/18/18 20:45 01/18/18 21:00 Temperature Pulse Rate 88 90 77 Respiratory Rate 21 23 20 Blood Pressure 136/69 136/69 134/69 Pulse Oximetry 100 100 100 01/18/18 22:00 01/18/18 22:15 01/18/18 22:30 Temperature Pulse Rate 76 72 72 Respiratory Rate 24 24 23 Blood Pressure 130/68 133/69 130/69 Pulse Oximetry 100 100 100 01/18/18 22:45 01/18/18 23:00 01/18/18 23:15 Temperature Pulse Rate 77 72 76 Respiratory Rate 22 22 20 Blood Pressure 136/72 131/70 130/72 Pulse Oximetry 100 100 100 01/18/18 23:30 01/18/18 23:42 01/18/18 23:45 Temperature Pulse Rate 68 82 Respiratory Rate 24 21 22 Blood Pressure 144/71 H 143/74 H Pulse Oximetry 100 100 100 01/19/18 00:00 01/19/18 00:15 01/19/18 00:30 Temperature 98.5 F Pulse Rate 79 76 80 Respiratory Rate 21 23 21 Blood Pressure 138/68 129/66 133/66 Pulse Oximetry 100 100 100 01/19/18 00:45 01/19/18 01:00 01/19/18 01:15 Temperature Pulse Rate 80 82 80 Respiratory Rate 22 24 23 Blood Pressure 147/67 H 139/65 159/70 H Pulse Oximetry 100 100 100 01/19/18 01:30 01/19/18 01:45 01/19/18 02:00 Temperature Pulse Rate 81 83 81 Respiratory Rate 21 22 29 H Blood Pressure 138/64 147/65 H 137/63 Pulse Oximetry 100 100 100 01/19/18 02:15 01/19/18 02:30 01/19/18 02:45 Temperature Pulse Rate 80 80 81 Respiratory Rate 23 23 21 Blood Pressure 139/76 135/71 128/60 Pulse Oximetry 100 100 100 01/19/18 03:00 01/19/18 03:15 01/19/18 03:30 Temperature Pulse Rate 84 81 80 Respiratory Rate 32 H 19 23 Blood Pressure 136/64 131/64 137/72 Pulse Oximetry 100 100 100 01/19/18 03:38 01/19/18 03:45 01/19/18 04:00 Temperature 98.8 F Pulse Rate 79 77 Respiratory Rate 22 21 20 Blood Pressure 133/70 135/71 Pulse Oximetry 100 100 100 01/19/18 04:16 01/19/18 04:30 01/19/18 04:45 Temperature Pulse Rate 79 79 81 Respiratory Rate 24 21 21 Blood Pressure 140/75 143/76 H 139/75 Pulse Oximetry 100 100 100 01/19/18 05:00 01/19/18 05:15 01/19/18 05:30 Temperature Pulse Rate 83 81 87 Respiratory Rate 22 24 22 Blood Pressure 146/79 H 148/80 H 150/80 H Pulse Oximetry 100 100 100 01/19/18 05:45 01/19/18 06:00 01/19/18 07:00 Temperature Pulse Rate 86 84 72 Respiratory Rate 22 20 21 Blood Pressure 150/76 H 158/83 H 148/73 H Pulse Oximetry 100 100 100 01/19/18 07:15 01/19/18 07:30 01/19/18 07:45 Temperature Pulse Rate 88 88 90 Respiratory Rate 23 24 22 Blood Pressure 162/76 H 168/79 H 158/72 H Pulse Oximetry 100 100 100 01/19/18 08:00 01/19/18 08:15 01/19/18 08:30 Temperature 98.9 F Pulse Rate 81 82 88 Respiratory Rate 21 23 21 Blood Pressure 148/70 H 150/73 H 154/75 H Pulse Oximetry 100 100 100 01/19/18 08:38 01/19/18 08:45 01/19/18 09:00 Temperature Pulse Rate 87 83 Respiratory Rate 25 H 23 23 Blood Pressure 157/75 H 148/70 H Pulse Oximetry 100 100 100 01/19/18 09:15 Temperature Pulse Rate 84 Respiratory Rate 23 Blood Pressure 139/70 Pulse Oximetry 100 Intake & Output 01/18/18 01/19/18 01/19/18 18:59 06:59 18:59 Intake Total 1317.625 / 3482.849 3614 / 1704 50 / 50 Output Total 1605 / 1605 1725 / 1725 Balance -287.375 / -287.375 -21 / -21 50 / 50 Weight 67.6 kg Intake: IV 559.625 / 027.107 2715 / 1050 50 / 50 Potassium Chlor 20 mEq/NACL 0. 1000 / 1000 45% Inj 1,000 ML @ 84 mls/hr IV .CONT .[id number] RICARDO Rx#:[id number] Sodium Chloride 23.4% Inj 38.5 109.625 / 109.625 MEQ In Sterile Water for Inj 1, 000 ML @ 84 mls/hr IV.CONT . Q12H2M RICARDO Rx#:[id number] Flexbumin 25% Inj 100 ML @ 60 100 / 100 mls/hr IV.SIG Q6H RICARDO Rx#: [id number] Diflucan 200 mg Premix Bag 100 200 / 200 ML @ 100 mls/hr IV.SIG Q24H RICARDO Rx#:[id number] Zosyn 3.375 GM Premix 50 ML @ 150 / 150 50 / 50 50 / 50 100 mls/hr IV.SIG Q6H RICARDO Rx#: [id number] Tube Feeding 508 / 508 654 / 654 Anesthesia Amount 250 / 250 Output: Stool 700 / 700 1000 / 1000 Estimated Blood Loss 5 / 5 Urine Amount (Catheter) 700 / 700 375 / 375 Indwelling Urethral Catheter 700 / 700 375 / 375 Wound Vac Amount 200 / 200 350 / 350 Posterior Sacrum 200 / 200 350 / 350 Other: Mode Setting Posterior Sacrum Continuous Continuous Continuous Date of Last Bowel Movement 01/18/18 01/19/18 01/19/18 Result Diagrams: 01/18/18 04:45 01/19/18 03:42 Objective Remarks: General: Cachectic middle-aged woman, on mechanical ventilation via tracheostomy. Head: Atraumatic, normal ENT: Neck supple, trach site clean, dry. Lungs: On mechanical ventilation through tracheostomy. Good bilateral breath sounds, clear. Heart: Regular rate and regular rhythm. Normal S1-S2, no JVD. Abdomen: Soft, no guarding, nondistended, nontender, bowel sounds active Back: Wound VAC remains in place over lower bilateral lumbar region. Musculoskeletal: Warm, well perfused, status post below-knee amputation right side, well-healed. Neurological: Wiggle his fingers and toes. Pupils 2 mm, reactive. Tracks with eyes. Cough and gag intact. Assessment and Plan - Problem List (1) Septic shock with acute organ dysfunction due to anaerobic bacteria Code(s): A41.4 - Sepsis due to anaerobes; R65.21 - Severe sepsis with septic shock Status: Acute (2) Acute respiratory failure Code(s): J96.00 - Acute respiratory failure, unspecified whether with hypoxia or hypercapnia Status: Acute (3) Necrotizing fasciitis Code(s): M72.6 - Necrotizing fasciitis Status: Acute (4) Type 2 diabetes mellitus with hyperosmolar nonketotic hyperglycemia Code(s): E11.01 - Type 2 diabetes mellitus with hyperosmolarity with coma Status: Acute (5) MARIO (acute kidney injury) Code(s): N17.9 - Acute kidney failure, unspecified Status: Acute (6) Lactic acidosis Code(s): E87.2 - Acidosis Status: Acute - Assessment and Plan Plan: Plan: Neurological Acute metabolic encephalopathy Resolving Cardiovascular Septic Shock- improving Myocardial dysfunction secondary to septic shock Fluid overload Taper levophed for pressor support. Respiratory Acute hypoxic and hypercarbic respiratory failure- persistent - s/p Trach in OR 12/28/17. - Mechanical ventilation assist control mode. -Tolerating spontaneous breathing trial surprisingly well. Progress to trach collar as tolerated. Endocrinology Diabetes Severe hypoglycemia - Med scale SSI. - Follow potassium and magnesium closely - Exacerbated by sepsis, now improving and will decrease daily Levemir dose Hematology/Infectious Disease Septic Shock Necrotizing soft tissue infection - Follow white count and platelet count closely. - Continue daptomycin and Zosyn. Diflucan for fungal coverage. -General surgery service following back wounds. GI Acute protein calorie malnutrition- severe - prealbumin 5 on 12/18. severely malnourished. - daily bmp, mg, phos - Tube feeds infusing, tolerated - Follow prealbumin weekly - Dignishield placed to protect wounds from soilage. -Follow prealbumin weekly. Acute kidney injury - Tristan required for hourly urine output and to protect perineal region. -May ultimately require colostomy to protect this region. HEME Left upper extremity DVT - DVT left internal jugular, subclavian, axillary and distal arm veins. - Cannot anticoagulate secondary to blood loss anemia requiring blood transfusion, frequent surgeries. -Arterial inflow into the left arm and hand is good. Prophylaxis - Pepcid for GI ulcer prophylaxis - SCDs for DVT prophylaxis - chemical DVT prophylaxis with lovenox Lines: PIV Overall impression: This woman was initially critically ill and in septic shock with necrotizing fasciitis emanating from a deep chronic sacral decubitus ulcer. She has required multiple OR trips for I&D and VAC changes. Family request continued aggressive care. She had a recurrent bout of severe sepsis on 01/14 but after 2 debridements she is very much improved.
--- NOTE | 2018-01-19 14:14 | XR ---
EXAM DATE: 01/19/2018 2:03 PM EST AGE/SEX: 52 years / Female INDICATIONS: Dobhoff placement. CLINICAL DATA: This is the patient's initial encounter. Patient reports that signs and symptoms have been present for 1 day and indicates a pain score of Nonresponsive. MEDICAL/SURGICAL HISTORY: . Hypertension. Diabetes mellitus type II. Hepatitis C. GERD, sepsis . section . COMPARISON: [facility] – [place], ABDOMEN [place], 01/08/2018. . FINDINGS: Dobbhoff tube has its tip in the distal stomach. CONCLUSION: Dobbhoff tube has its tip in the distal stomach. Electronically signed by: Derrick Kraft MD 01/19/2018 2:12 PM EST
[2018-01-19] MEDS: Insulin Detemir Inj 1,000 UNIT/10 ML Vial SQ SCH (20:19)
--- NOTE | 2018-01-19 21:39 | XR ---
EXAM DATE: 01/19/2018 9:31 PM EST AGE/SEX: 52 years / Female INDICATIONS: Dobhoff placement. CLINICAL DATA: This is the patient's subsequent encounter. Patient reports that signs and symptoms h ave been present for 1 day and indicates a pain score of 0/10. MEDICAL/SURGICAL HISTORY: . Hypertension. Diabetes mellitus type II. Hepatitis C. GERD, sepsis . section . . COMPARISON: [facility] – [place], ABDOMEN 1V KUB, 01/19/2018. . FINDINGS: There is a feeding type Dobbhoff catheter in the mid stomach. Mild diffuse gaseous distention of the stomach. Air is noted in the visualized transverse colon. CONCLUSION: 1. Feeding type Dobbhoff tube in the mid stomach. 2. Mild gaseous distention of the stomach. Electronically signed by: Jefferson Sapp MD 01/19/2018 9:38 PM EST
[2018-01-20] MEDS: Oral Hygiene Kit OROPHARYNG SCH ×4 (04:49→16:00)
[2018-01-20 05:23] LABS: Baso # (Auto) 0.1 th/mm3 (0.0-0.2); Baso % (Auto) 0.9 % (0.0-2.0); Eos # (Auto) 0.4 th/mm3 (0.0-0.4); Eos % (Auto) 4.3 % (0.0-4.0); Hematocrit 21.6 % (35.0-46.0); Hemoglobin 7.2 gm/dL (11.6-15.3); Lymph # (Auto) 1.5 th/mm3 (1.0-4.8); Lymph % (Auto) 16.2 % (9.0-44.0); Mean Corpuscular HGB Conc 33.1 % (32.0-36.0); Mean Corpuscular Hemoglobin 30.3 pg (27.0-34.0); Mean Corpuscular Volume 91.4 fL (80.0-100.0); Mean Platelet Volume 11.1 fL (7.0-11.0); Mono # (Auto) 0.3 th/mm3 (0.0-0.9); Mono % (Auto) 3.7 % (0.0-8.0); Neut # (Auto) 6.8 th/mm3 (1.8-7.7); Neut % (Auto) 74.9 % (16.0-70.0); Platelet Count 241 th/mm3 (150-450); Red Blood Count 2.36 mil/mm3 (4.00-5.30); White Blood Count 9.1 th/mm3 (4.0-11.0)
[2018-01-20] MEDS: metroNIDAZOLE 500 MG Tablet NG/OG SCH ×3 (05:42→21:09)
[2018-01-20 05:44] LABS: Calcium 7.8 mg/dL (8.5-10.1); Carbon Dioxide 20.7 meq/L (21.0-32.0); Potassium 4.2 meq/L (3.5-5.1)
[2018-01-20] MEDS: Insulin NovoLIN Regular Correctional Sugar Inj SQ SCH ×5 (05:49→15:59)
[2018-01-20] MEDS: Piperacil/Tazo 3.375 GM Premix 50 ML IV.SIG SCH ×4 (06:06→17:59)
[2018-01-20] MEDS: Chlorhexidine 0.12% Oral Kit 15 ML UDC OROPHARYNG SCH ×2 (08:12→20:10)
[2018-01-20] MEDS: Lansoprazole ODT 15 MG Tablet NG/OG SCH (08:12)
[2018-01-20] MEDS: Collagenase Oint 30 GM Tube TOPICAL SCH (08:12)
[2018-01-20] MEDS: Metoprolol Tartrate 50 MG Tablet NG/OG SCH ×2 (08:12→20:06)
[2018-01-20] MEDS: Potassium Phosphate 500 MG Soluble Tablet NG/OG SCH ×2 (08:12→20:10)
[2018-01-20] MEDS: Insulin Detemir Inj 1,000 UNIT/10 ML Vial SQ SCH ×2 (08:13→20:09)
[2018-01-20] MEDS: Potassium Bicarbonate 25 MEQ Effervescent Tablet NG/OG SCH (08:13)
[2018-01-20] MEDS: Lisinopril 5 MG Tablet NG/OG SCH (08:13)
[2018-01-20] MEDS: Senna/Docusate Sodium 8.6/50 MG Tablet NG/OG SCH ×2 (08:13→20:06)
[2018-01-20] MEDS: hydrALAZINE 50 MG Tablet NG/OG SCH ×3 (08:13→17:57)
[2018-01-20] MEDS: Enoxaparin Inj 30 MG/0.3 ML Syringe SQ SCH (08:14)
--- NOTE | 2018-01-20 09:34 | P.PNCC ---
Subjective Subjective Remarks/Hospital Course: Note for 01/05/18: This 52-year-old woman with long-standing uncontrolled diabetes mellitus and severe peripheral arterial disease related to a long-term heavy smoking history was found down at her home and initial blood glucose was 610. Her lower back and buttocks was exquisitely tender and a mid line stage IV sacral decubitus was oozing purulent material and inflamed and the surrounding soft tissue. White count was not elevated but 90% neutrophils. Temperature 97 degrees. Moderately encephalopathic though conversant. X-rays revealed no fractures in the pelvis but CAT scan demonstrated extensive subcutaneous air emanating in both directions left and right from the mid sacral region. This is clearly necrotizing fasciitis or some other gas-forming infection and the woman is critically ill. She received vancomycin, Zosyn, and clindamycin antibiotic therapy as quickly as possible and was transferred to the ICU for ongoing resuscitation. Because of worsening hemodynamic stability she required intubation and mechanical ventilation followed by central line placement on arrival to the ICU. Insulin drip infusion was started in the emergency department and glucose had declined into the low 400s. She was not in ketoacidosis but lactic acid was elevated at 3.1. General surgery and orthopedic surgery were consulted for recommendations and it was felt that this woman was too unstable to tolerate an operative procedure immediately. We continue her ongoing resuscitation and trial in the ICU at this stage. 12/16: Following aggressive resuscitation yesterday for the treatment of severe hyperglycemia, septic shock, respiratory failure, metabolic acidosis, acute kidney injury, the patient went to the operating room with an extensive wide debridement bilateral gluteal and left thigh soft tissue and muscle. Primary antibiotic coverage at this point is vancomycin, cefepime, clindamycin. The patient started to make urine late yesterday afternoon and has continued to acceptable output since. Lactic acidosis is 2.0 this morning but metabolic acidosis persists despite bicarb drip. She remains on vasopressor support and hemodynamically unstable. 12/17: s/p debridement of large nec fasc wound. remains in shock today. also very hypoglycemic requiring multiple D50 amps overnight. 12/18: back in worsening shock. vasopressor support higher. required 2L crystalloid overnight and additional 1L and 500cc albumin today. ivc completely flat on bedside echo. LVEF hyperdynamic. no pericardial effusion. spoken with gen surg. plan to go back early to eval for worsening necrosis. fio2 also up to 100% and peep 10- hypoxic, likely early ARDS. 12/19: clinically doing better. still in shock on vasopressors, but requirements are lower and lactate cleared. Cr slowly uptrending. SVV still 19% today and appears to be volume responsive. gen surgery ordered 2 units prbc for falling hgb in the setting of blood loss with surgical intervention yesterday. fio2 improving. glycemic control also improving. 12/20: Markedly impaired oxygenation persists. Still requiring elevated end expiratory pressure. Nutritional support continues but she remains catabolic. It will be difficult to keep up with her nutritional needs. 12/21: Continued severe sepsis requiring vasopressor support and mechanical ventilation. Oxygenation remains impaired and smoldering metabolic acidosis persists. Despite hemodynamic instability the patient's only hope for survival is with infection source control through further debridement. Clearly a greatly increased risk however for any procedure. 12/22: Persistent septic shock course requiring vasopressor support and regular debridement. Good antibiotic coverage but she continues to require adjustment of ventilator, hemodynamic support drugs, antibiotics, intravenous fluids. Her nutritional status was quite depleted on arrival and continues to deteriorate despite adjuvant nutrition. 12/23: Patient continues septic course. She has developed venous clot throughout her left internal jugular subclavian and axillary vein system. Not a candidate for full anticoagulation because of need for frequent surgical debridement. We will pull out the catheter today and placing In the right subclavian route. 12/24 remains critically ill and septic remains on Rj-Synephrine at 50 mcg/kg/ min. WBC count increasing 20 6K today. Antibiotics have been changed by ID. Diflucan added for Talia UTI. Plan for OR today per surgery 12/25: Went to OR yesterday, s/p Incision, drainage with excisional debridement of back, buttock, thigh, and VAC change. Main septic White count increasing 31, 000 today, remains on pressors vasopressin and Rj-Synephrine. 12/26: Remains critical remains on vasopressin to maintain blood pressure and map above 65, currently off Rj-Synephrine. Remains severely fluid overloaded approximately 20 kg up. Despite pressor use will start IV diuretics to achieve negative fluid balance 12/27: Intubated sedated but more awake follows some commands. Hemoglobin down to 6.4, 2 g dropped, receiving 2 units of PRBC. No obvious bleeding noted. Currently had been weaned off the pressors. Or planned for tomorrow again 12/28: OR today for wound VAC change and I&D, possible tracheostomy. Potassium is 2.6 getting replaced. Hemoglobin stable. Remains off pressors. Urine output almost 8 L with forced diuresis 12/29: Status post OR for wound VAC change in tracheostomy yesterday. Getting for his diuresis urine output more than 4 L in 24 hours. Remains intubated sedated intermittently follows commands. Plan for I&D wound VAC change again on Saturday 12/30: Remains intubated sedated more stable. Urine output remains excellent with diuresis. Plan for OR in a.m. for further I&D and VAC change 12/31: Patient remains intubated plan for OR today with Dr. Muir for further I&D and wound VAC change. Making urine more than 4 L in 24 hours with diuresis. Getting closer to admission weight. Potassium 3.3 getting replacement 01/01: Remains intubated sedated failing CPAP due to low tidal volumes. Status post OR yesterday for the I&D tomorrow planned by general surgery. Urine output 3 L in 24 hours 01/02: Potassium being replaced. Ready for OR today. Return from the OR with stable hemodynamics on mechanical ventilation. 01/03: Attempted spontaneous breathing trials today and converted to T piece. We will continue this method of weaning. Nutrition infusing and well- tolerated. Severity of wound will require a lengthy hospitalization. 01/04: Nasogastric tube is out. She is much more alert and we will try a swallow evaluation before replacing. Contraction alkalosis is developing with diuretics, will add a carbonic anhydrase inhibitor. 01/05: Breathing comfortably on T-piece. Failed swallow eval. Will need to replace nasogastric tube or Dobbhoff for nutrition. 01/06: Alert interactive. Failed swallow eval possibly due to the distortion of the trach cuff. Continue feeding through Dobbhoff tube. Patient is stable to go to floor now. Fentanyl drip converted to fentanyl patch. Adequately diuresed of post edema, discontinue diuretics and replace potassium. After K replaced add lisinopril now that GFR back to normal. 01/07 - 01/13: Patient undergoing care on floor with continuous tube feeding and serial surgical debridements. Wound VAC in place. 01/14: Patient developed temperature of 103 with sustained tachycardia and obtundation. She clearly appears septic. Cultures have been ordered by the floor staff and resuscitation with isotonic crystalloid has begun in the ICU. Her abdomen is soft and her chest x-ray is clear. She has no indwelling lines. The likely culprit is the depths of the wound and/or stool contamination. 01/15: Patient underwent debridement of the lumbar wounds yesterday. She is still requiring vasopressor therapy to support her blood pressure and mechanical ventilation for respiratory failure. She remains critically ill. 01/16: Remains on mechanical ventilation via tracheostomy. Tolerating CPAP trial. Off pressors since yesterday. 01/17: Remains on mechanical ventilation via tracheostomy. Tolerating CPAP trial with pressure support +10 however gets tachypneic on lowering pressor support. 01/18: Debridement/washout of lumbar wounds done today. Remains on mechanical ventilation via tracheostomy. 01/19: She tolerated her debridement yesterday well and is back on spontaneous breathing trials this morning at 10/5. She looks comfortable and we will try to get her to T-piece today. 01/20: Tolerating T-piece well and continues after 24 hours and a nonlabored pattern. Glucose control remains poor; she became intolerant during her recent sepsis and we are trying to find a new baseline regimen. Objective Vital Signs / I&O: Vital Signs 01/19/18 09:30 01/19/18 09:45 01/19/18 10:00 Temperature Pulse Rate 83 75 82 Respiratory Rate 21 23 23 Blood Pressure 156/74 H 148/75 H 143/65 H Pulse Oximetry 100 100 100 01/19/18 10:15 01/19/18 10:30 01/19/18 10:45 Temperature Pulse Rate 80 76 82 Respiratory Rate 21 22 23 Blood Pressure 136/60 140/67 140/71 Pulse Oximetry 100 100 01/19/18 11:00 01/19/18 11:15 01/19/18 11:30 Temperature Pulse Rate 79 74 74 Respiratory Rate 22 22 25 H Blood Pressure 138/72 135/71 127/73 Pulse Oximetry 100 100 100 01/19/18 11:38 01/19/18 11:45 01/19/18 12:00 Temperature 97.9 F Pulse Rate 74 76 Respiratory Rate 20 20 22 Blood Pressure 161/79 H 152/72 H Pulse Oximetry 98 100 99 01/19/18 12:15 01/19/18 12:30 01/19/18 12:45 Temperature Pulse Rate 76 88 87 Respiratory Rate 23 23 25 H Blood Pressure 154/68 H 139/73 148/68 H Pulse Oximetry 100 97 97 01/19/18 13:00 01/19/18 13:15 01/19/18 13:30 Temperature Pulse Rate 87 87 90 Respiratory Rate 21 23 25 H Blood Pressure 148/70 H 151/68 H 142/67 H Pulse Oximetry 98 97 100 01/19/18 13:45 01/19/18 14:00 01/19/18 14:15 Temperature Pulse Rate 86 85 84 Respiratory Rate 23 23 23 Blood Pressure 160/72 H 153/62 H 161/71 H Pulse Oximetry 98 99 99 01/19/18 14:30 01/19/18 14:45 01/19/18 15:00 Temperature Pulse Rate 84 82 85 Respiratory Rate 23 11 L 23 Blood Pressure 151/67 H 151/67 H 148/71 H Pulse Oximetry 99 99 100 01/19/18 15:15 01/19/18 15:30 01/19/18 15:45 Temperature Pulse Rate 92 H 88 87 Respiratory Rate 25 H 17 22 Blood Pressure 166/77 H 161/72 H 162/67 H Pulse Oximetry 100 100 100 01/19/18 16:00 01/19/18 16:15 01/19/18 16:30 Temperature 97.9 F Pulse Rate 88 89 87 Respiratory Rate 22 21 20 Blood Pressure 156/71 H 154/70 H 156/72 H Pulse Oximetry 99 100 100 01/19/18 16:45 01/19/18 17:00 01/19/18 17:15 Temperature Pulse Rate 89 86 85 Respiratory Rate 22 21 22 Blood Pressure 159/76 H 149/66 H 154/72 H Pulse Oximetry 100 100 100 01/19/18 17:30 01/19/18 17:45 01/19/18 18:00 Temperature Pulse Rate 84 83 83 Respiratory Rate 22 24 23 Blood Pressure 160/73 H 161/70 H 157/71 H Pulse Oximetry 100 100 99 01/19/18 18:15 01/19/18 18:30 01/19/18 18:45 Temperature Pulse Rate 88 87 88 Respiratory Rate 24 23 25 H Blood Pressure 163/74 H 176/81 H 169/71 H Pulse Oximetry 100 100 100 01/19/18 19:00 01/19/18 19:15 01/19/18 19:30 Temperature 98.7 F Pulse Rate 86 85 84 Respiratory Rate 26 H 25 H 25 H Blood Pressure 167/72 H 165/70 H 159/71 H Pulse Oximetry 100 100 100 01/19/18 19:45 01/19/18 20:00 01/19/18 20:22 Temperature Pulse Rate 87 96 H Respiratory Rate 24 26 H Blood Pressure 156/62 H 166/74 H Pulse Oximetry 100 100 99 01/19/18 21:00 01/19/18 21:02 01/19/18 22:00 Temperature Pulse Rate 88 91 H 82 Respiratory Rate 26 H 24 23 Blood Pressure 170/89 H Pulse Oximetry 100 100 100 01/19/18 22:02 01/19/18 23:00 01/19/18 23:02 Temperature Pulse Rate 82 83 79 Respiratory Rate 21 22 21 Blood Pressure 158/71 H 175/79 H Pulse Oximetry 100 100 100 01/19/18 23:13 01/19/18 23:56 01/20/18 00:00 Temperature 98.1 F Pulse Rate 82 82 Respiratory Rate 21 23 Blood Pressure 154/67 H 159/76 H Pulse Oximetry 100 100 100 01/20/18 00:02 01/20/18 01:00 01/20/18 01:02 Temperature Pulse Rate 77 82 83 Respiratory Rate 21 22 21 Blood Pressure 159/76 H 156/74 H Pulse Oximetry 100 100 100 01/20/18 02:00 01/20/18 02:02 01/20/18 03:00 Temperature Pulse Rate 83 85 78 Respiratory Rate 22 22 21 Blood Pressure 166/79 H Pulse Oximetry 100 100 100 01/20/18 03:02 01/20/18 04:00 01/20/18 04:02 Temperature 98.4 F Pulse Rate 78 77 77 Respiratory Rate 22 22 20 Blood Pressure 153/74 H 148/78 H 148/72 H Pulse Oximetry 100 100 100 01/20/18 04:13 01/20/18 05:00 01/20/18 05:02 Temperature Pulse Rate 82 84 Respiratory Rate 22 23 Blood Pressure 160/96 H Pulse Oximetry 100 100 100 01/20/18 06:00 01/20/18 06:02 01/20/18 07:00 Temperature Pulse Rate 82 83 86 Respiratory Rate 22 22 21 Blood Pressure 160/82 H Pulse Oximetry 100 100 100 01/20/18 07:02 01/20/18 08:00 01/20/18 08:02 Temperature Pulse Rate 88 86 83 Respiratory Rate 21 23 21 Blood Pressure 168/81 H 171/79 H Pulse Oximetry 100 100 100 01/20/18 08:25 Temperature Pulse Rate Respiratory Rate Blood Pressure Pulse Oximetry 100 Intake & Output 01/19/18 01/20/18 01/20/18 18:59 06:59 18:59 Intake Total 2175 / 2175 1212 / 1212 Output Total 1325 / 1325 1500 / 1500 Balance 850 / 850 -288 / -288 Weight 63.7 kg Intake: IV 1630 / 1630 100 / 100 Potassium Chlor 20 mEq/NACL 0. 1000 / 1000 45% Inj 1,000 ML @ 84 mls/hr IV .CONT .[id number] [facility] Rx#:[id number] Diflucan 200 mg Premix Bag 100 200 / 200 ML @ 100 mls/hr IV.SIG Q24H [facility] Rx#:[id number] Zosyn 3.375 GM Premix 50 ML @ 150 / 150 100 / 100 100 mls/hr IV.SIG Q6H [facility] Rx#: [id number] Glycophos Inj 30 MMOL In NS Inj 280 / 280 250 ML @ 42 mls/hr IV.SIG ONCE ONE Rx#:[id number] Tube Feeding 545 / 545 512 / 512 Water Bolus Amount 600 / 600 Output: Stool 400 / 400 500 / 500 Urine Amount (Catheter) 800 / 800 900 / 900 Indwelling Urethral Catheter 800 / 800 900 / 900 Wound Vac Amount 125 / 125 100 / 100 Posterior Sacrum 125 / 125 100 / 100 Other: Mode Setting Posterior Sacrum Continuous Intermittent Continuous Date of Last Bowel Movement 01/19/18 01/20/18 01/20/18 Result Diagrams: 01/20/18 04:02 01/20/18 04:02 Objective Remarks: General: Cachectic middle-aged woman, on T-piece via tracheostomy. Head: Atraumatic, normal ENT: Neck supple, trach site clean, dry. Lungs: Supplemental oxygen through tracheostomy. Good bilateral breath sounds, clear. Acceptable cough effort Heart: RRR. Normal S1-S2, no JVD. Abdomen: Soft, no guarding, nondistended, nontender, bowel sounds active Back: Wound VAC remains in place over lower bilateral lumbar region. Surrounding skin is mildly erythematous. Musculoskeletal: Warm, well perfused, status post below-knee amputation right side, well-healed. Neurological: Wiggle her fingers and toes. Pupils 2 mm, reactive. Tracks with eyes. Cough and gag intact. Appears to understand conversation. Assessment and Plan - Problem List (1) Septic shock with acute organ dysfunction due to anaerobic bacteria Code(s): A41.4 - Sepsis due to anaerobes; R65.21 - Severe sepsis with septic shock Status: Acute (2) Acute respiratory failure Code(s): J96.00 - Acute respiratory failure, unspecified whether with hypoxia or hypercapnia Status: Acute (3) Necrotizing fasciitis Code(s): M72.6 - Necrotizing fasciitis Status: Acute (4) Type 2 diabetes mellitus with hyperosmolar nonketotic hyperglycemia Code(s): E11.01 - Type 2 diabetes mellitus with hyperosmolarity with coma Status: Acute (5) MARIO (acute kidney injury) Code(s): N17.9 - Acute kidney failure, unspecified Status: Acute (6) Lactic acidosis Code(s): E87.2 - Acidosis Status: Acute - Assessment and Plan Plan: Plan: Neurological Acute metabolic encephalopathy Resolved Cardiovascular Septic Shock- improving Myocardial dysfunction secondary to septic shock Fluid overload Tapered levophed off Respiratory Acute hypoxic and hypercarbic respiratory failure- persistent - s/p Trach in OR 12/28/17. -Discontinue mechanical ventilation assist control mode. -Tolerating T-piece Endocrinology Diabetes Severe hypoglycemia - Med scale SSI. - Follow potassium and magnesium closely -Ongoing adjustments with basal insulin following episode of sepsis, requirements now declining Hematology/Infectious Disease Septic Shock Necrotizing soft tissue infection - Follow white count and platelet count closely. - Continue daptomycin and Zosyn. Diflucan for fungal coverage. - General surgery service following back wounds, scheduling debridement. GI Acute protein calorie malnutrition- severe - prealbumin 5 on 12/18. severely malnourished. - daily bmp, mg, phos - Tube feeds infusing, tolerated - Follow prealbumin weekly - Dignishield placed to protect wounds from soilage. - Follow prealbumin weekly. Calorie count Acute kidney injury - Tristan required for hourly urine output and to protect perineal region. - May ultimately require colostomy to protect this region. -CAUTI now. I cannot think of a solution to the problem of continuous wound soilage. HEME Left upper extremity DVT - DVT left internal jugular, subclavian, axillary and distal arm veins. - Cannot anticoagulate secondary to blood loss anemia requiring blood transfusion, frequent surgeries. - Arterial inflow into the left arm and hand is good. Prophylaxis - Pepcid for GI ulcer prophylaxis - SCDs for DVT prophylaxis - chemical DVT prophylaxis with lovenox Lines: PIV Overall impression: This woman was initially critically ill and in septic shock with necrotizing fasciitis emanating from a deep chronic sacral decubitus ulcer. She has required multiple OR trips for I&D and VAC changes. Family request continued aggressive care. She had a recurrent bout of severe sepsis on 01/14 but after 2 debridements she is very much improved. Now on T-piece, hemodynamically stable, and ready to be transferred to the floor.
[2018-01-20] MEDS: KCL 20 mEq/NACL 0.45% Inj 1,000 ML IV.CONT SCH (10:54)
--- NOTE | 2018-01-20 20:18 | P.PN ---
Subjective Interval history: NOT seen Physical Exam Vital signs: Vital Signs 01/19/18 20:22 01/19/18 21:00 01/19/18 21:02 Temperature Pulse Rate 88 91 H Respiratory Rate 26 H 24 Blood Pressure 170/89 H Pulse Oximetry 99 100 100 01/19/18 22:00 01/19/18 22:02 01/19/18 23:00 Temperature Pulse Rate 82 82 83 Respiratory Rate 23 21 22 Blood Pressure 158/71 H Pulse Oximetry 100 100 100 01/19/18 23:02 01/19/18 23:13 01/19/18 23:56 Temperature Pulse Rate 79 82 Respiratory Rate 21 21 Blood Pressure 175/79 H 154/67 H Pulse Oximetry 100 100 100 01/20/18 00:00 01/20/18 00:02 01/20/18 01:00 Temperature 98.1 F Pulse Rate 82 77 82 Respiratory Rate 23 21 22 Blood Pressure 159/76 H 159/76 H Pulse Oximetry 100 100 100 01/20/18 01:02 01/20/18 02:00 01/20/18 02:02 Temperature Pulse Rate 83 83 85 Respiratory Rate 21 22 22 Blood Pressure 156/74 H 166/79 H Pulse Oximetry 100 100 100 01/20/18 03:00 01/20/18 03:02 01/20/18 04:00 Temperature 98.4 F Pulse Rate 78 78 77 Respiratory Rate 21 22 22 Blood Pressure 153/74 H 148/78 H Pulse Oximetry 100 100 100 01/20/18 04:02 01/20/18 04:13 01/20/18 05:00 Temperature Pulse Rate 77 82 Respiratory Rate 20 22 Blood Pressure 148/72 H Pulse Oximetry 100 100 100 01/20/18 05:02 01/20/18 06:00 01/20/18 06:02 Temperature Pulse Rate 84 82 83 Respiratory Rate 23 22 22 Blood Pressure 160/96 H 160/82 H Pulse Oximetry 100 100 100 01/20/18 07:00 01/20/18 07:02 01/20/18 08:00 Temperature Pulse Rate 86 88 86 Respiratory Rate 21 21 23 Blood Pressure 168/81 H Pulse Oximetry 100 100 100 01/20/18 08:02 01/20/18 08:25 01/20/18 09:00 Temperature Pulse Rate 83 78 Respiratory Rate 21 24 Blood Pressure 171/79 H Pulse Oximetry 100 100 100 01/20/18 09:02 01/20/18 10:00 01/20/18 10:09 Temperature Pulse Rate 79 Respiratory Rate 24 Blood Pressure 168/72 H 163/72 H Pulse Oximetry 100 100 100 01/20/18 11:00 01/20/18 12:00 01/20/18 16:00 Temperature 98.9 F 97.5 F L Pulse Rate 81 85 89 Respiratory Rate 20 21 20 Blood Pressure 160/80 H Pulse Oximetry 100 100 100 01/20/18 20:01 Temperature Pulse Rate Respiratory Rate Blood Pressure Pulse Oximetry 100 Intake & Output 01/20/18 01/20/18 01/21/18 06:59 18:59 06:59 Intake Total 1212 / 1212 1809 / 1809 Output Total 1500 / 1500 1025 / 1025 Balance -288 / -288 784 / 784 Weight 63.7 kg Intake: IV 100 / 100 1300 / 1300 Potassium Chlor 20 mEq/NACL 0. 1000 / 1000 45% Inj 1,000 ML @ 84 mls/hr IV .CONT .[id number] RICARDO Rx#:[id number] Diflucan 200 mg Premix Bag 100 200 / 200 ML @ 100 mls/hr IV.SIG Q24H RICARDO Rx#:[id number] Zosyn 3.375 GM Premix 50 ML @ 100 / 100 100 / 100 100 mls/hr IV.SIG Q6H RICARDO Rx#: [id number] Tube Feeding 512 / 512 509 / 509 Water Bolus Amount 600 / 600 Output: Stool 500 / 500 200 / 200 Urine Amount (Catheter) 900 / 900 750 / 750 Indwelling Urethral Catheter 900 / 900 750 / 750 Wound Vac Amount 100 / 100 75 / 75 Posterior Sacrum 100 / 100 75 / 75 Other: Mode Setting Posterior Sacrum Intermittent Continuous Date of Last Bowel Movement 01/20/18 01/20/18 Narrative: General: Cachectic middle-aged woman, on T-piece via tracheostomy. Head: Atraumatic, normal ENT: Neck supple, trach site clean, dry. Lungs: Supplemental oxygen through tracheostomy. Good bilateral breath sounds, clear. Acceptable cough effort Heart: RRR. Normal S1-S2, no JVD. Abdomen: Soft, no guarding, nondistended, nontender, bowel sounds active Back: Wound VAC remains in place over lower bilateral lumbar region. Surrounding skin is mildly erythematous. Musculoskeletal: Warm, well perfused, status post below-knee amputation right side, well-healed. Neurological: Wiggle her fingers and toes. Pupils 2 mm, reactive. Tracks with eyes. Cough and gag intact. Appears to understand conversation. - Urinary Catheter Management Indwelling Urethral Catheter Cath placed during this visit: yes Reason for continuing: Acute urinary retention Insertion date: 01/13/18 Insertion time: 01:00 1 Cath placed during this visit: yes, but has since been removed by the nurse Urethral indwelling: Yes Reason for continuing: Severe pressure ulcer/wound Insertion date: 12/15/17 Removal date: 01/13/18 Removal time: 01:00 Results - Labs CBC & Chem 7: 01/20/18 04:02 01/20/18 04:02 Laboratory Results - last 24 hr 01/19/18 01/19/18 01/19/18 19:22 19:58 23:51 WBC RBC Hgb Hct MCV MCH MCHC RDW Plt Count MPV Neut % (Auto) Lymph % (Auto) [place] % (Auto) Eos % (Auto) Baso % (Auto) Neut # (Auto) Lymph # (Auto) [place] # (Auto) Eos # (Auto) Baso # (Auto) WBC Differential Differential Comment Sodium Potassium Chloride Carbon Dioxide Anion Gap BUN Creatinine Estimated GFR POC Glucose 128 H 179 H Random Glucose Calcium Phosphorus 3.2 D 01/20/18 01/20/18 01/20/18 04:02 04:02 05:45 WBC 9.1 RBC 2.36 L Hgb 7.2 L Hct 21.6 L MCV 91.4 MCH 30.3 MCHC 33.1 RDW 20.0 H Plt Count 241 MPV 11.1 H Neut % (Auto) 74.9 H Lymph % (Auto) 16.2 [place] % (Auto) 3.7 Eos % (Auto) 4.3 H Baso % (Auto) 0.9 Neut # (Auto) 6.8 Lymph # (Auto) 1.5 [place] # (Auto) 0.3 Eos # (Auto) 0.4 Baso # (Auto) 0.1 WBC Differential . Differential Comment Auto diff final Sodium 142 Potassium 4.2 Chloride 113 H Carbon Dioxide 20.7 L Anion Gap 8 BUN 27 H Creatinine 0.75 Estimated GFR 81 L POC Glucose 247 H Random Glucose 207 H D Calcium 7.8 L Phosphorus 01/20/18 01/20/18 01/20/18 07:24 15:56 19:46 WBC RBC Hgb Hct MCV MCH MCHC RDW Plt Count MPV Neut % (Auto) Lymph % (Auto) [place] % (Auto) Eos % (Auto) Baso % (Auto) Neut # (Auto) Lymph # (Auto) [place] # (Auto) Eos # (Auto) Baso # (Auto) WBC Differential Differential Comment Sodium Potassium Chloride Carbon Dioxide Anion Gap BUN Creatinine Estimated GFR POC Glucose 253 H 192 H 198 H Random Glucose Calcium Phosphorus - Imaging ITS Impressions Femur X-Ray 12/15/17 07:05 CONCLUSION: No fracture is identified. There is extensive soft tissue air in the right gluteal region and extending into the proximal and mid posterior thigh. The soft tissue air suggests an open wound. Pelvis X-Ray 12/15/17 07:05 CONCLUSION: No fracture is identified. However, there is extensive soft tissue air in the left gluteal region and left proximal thigh. Pelvis CT 12/15/17 07:52 CONCLUSION: 1. No fracture is identified. 2. Extensive subcutaneous and soft tissue gas bilaterally, left greater than right. It is most severe in the left gluteal region and extends into the proximal posterior thigh. The soft tissue air dissects through the gluteal musculature. There is adjacent subcutaneous edema. Foot X-Ray 12/18/17 00:00 CONCLUSION: Remote small avulsion fracture at the fifth toe. No acute bony abnormality. Venous Doppler Study 12/22/17 00:00 CONCLUSION: Extensive deep vein thrombosis of the left upper extremity. Chest X-Ray 01/14/18 00:00 CONCLUSION: 1. Tubes and lines, as above. 2. Slight improved aeration of the lower lung zones with persistent mild patchy airspace disease and probable trace left pleural effusion. Abdomen X-Ray 01/19/18 21:06 CONCLUSION: 1. Feeding type Dobbhoff tube in the mid stomach. 2. Mild gaseous distention of the stomach. - Procedures lumbar wd debridement with wd vac Assessment and Plan - Assessment (1) MARIO (acute kidney injury) Code(s): N17.9 - Acute kidney failure, unspecified Status: Acute (2) Hypernatremia Code(s): E87.0 - Hyperosmolality and hypernatremia Status: Acute (3) Type 2 diabetes mellitus with hyperosmolar nonketotic hyperglycemia Code(s): E11.01 - Type 2 diabetes mellitus with hyperosmolarity with coma Status: Acute (4) Necrotizing fasciitis of pelvic region and thigh Code(s): M72.6 - Necrotizing fasciitis Status: Acute - Plan Neurological Acute metabolic encephalopathy Resolved Cardiovascular Septic Shock- improving Myocardial dysfunction secondary to septic shock Fluid overload Tapered levophed off Respiratory Acute hypoxic and hypercarbic respiratory failure- persistent - s/p Trach in OR 12/28/17. -Discontinue mechanical ventilation assist control mode. -Tolerating T-piece Endocrinology Diabetes Severe hyperglycemia - Med scale SSI. - Follow potassium and magnesium closely -Ongoing adjustments with basal insulin following episode of sepsis, requirements now declining Hematology/Infectious Disease Septic Shock Necrotizing soft tissue infection CAUTI, PSAE PNA, PSAE - Follow white count and platelet count closely. - Continue daptomycin and Zosyn. Diflucan for fungal coverage. - General surgery service following back wounds, scheduling debridement. GI Acute protein calorie malnutrition- severe - prealbumin 5 on 12/18. severely malnourished. - daily bmp, mg, phos - Tube feeds infusing, tolerated - Follow prealbumin weekly - Dignishield placed to protect wounds from soilage. - Follow prealbumin weekly. Calorie count - refused PEG Acute kidney injury - Tristan required for hourly urine output and to protect perineal region. - May ultimately require colostomy to protect this region. - CAUTI now. Cannot think of a solution to the problem of continuous wound soilage. Refused colostomy HEME Left upper extremity DVT Anemia - DVT left internal jugular, subclavian, axillary and distal arm veins. - Cannot anticoagulate secondary to blood loss anemia requiring blood transfusion, frequent surgeries. - Arterial inflow into the left arm and hand is good. Prophylaxis - Pepcid for GI ulcer prophylaxis - SCDs for DVT prophylaxis - chemical DVT prophylaxis with lovenox Lines: PIV Overall impression: This woman was initially critically ill and in septic shock with necrotizing fasciitis emanating from a deep chronic sacral decubitus ulcer. She has required multiple OR trips for I&D and VAC changes. Family request continued aggressive care. She had a recurrent bout of severe sepsis on 01/14 but after 2 debridements she is very much improved. Now on T-piece, hemodynamically stable, and ready to be transferred to the floor.
[2018-01-21] MEDS: Piperacil/Tazo 3.375 GM Premix 50 ML IV.SIG SCH ×4 (00:01→18:27)
[2018-01-21] MEDS: Insulin NovoLIN Regular Correctional Sugar Inj SQ SCH ×5 (00:04→21:06)
[2018-01-21] MEDS: KCL 20 mEq/NACL 0.45% Inj 1,000 ML IV.CONT SCH ×2 (01:35→16:09)
[2018-01-21] MEDS: Potassium Bicarbonate 25 MEQ Effervescent Tablet NG/OG SCH ×3 (03:38→21:16)
[2018-01-21] MEDS: hydrALAZINE HCl Inj 20 MG/ML Vial IV.PUSH PRN (04:02)
[2018-01-21] MEDS: Oral Hygiene Kit OROPHARYNG SCH ×4 (04:15→16:12)
[2018-01-21] MEDS: metroNIDAZOLE 500 MG Tablet NG/OG SCH ×3 (05:10→21:05)
[2018-01-21 06:06] LABS: Anion Gap 8 meq/L (5-15); Blood Urea Nitrogen 23 mg/dL (7-18); Chloride 113 meq/L (98-107); Glomerular Filtration Rate Greater Than 89 mL/min (>89); Glucose,Random 176 mg/dL (74-106); Magnesium 2.2 mg/dL (1.5-2.5); Phosphorus 2.5 mg/dL (2.5-4.9); Potassium 4.7 meq/L (3.5-5.1); Sodium 141 meq/L (136-145)
[2018-01-21 07:11] LABS: Baso # (Auto) 0.1 th/mm3 (0.0-0.2); Baso % (Auto) 1.2 % (0.0-2.0); Eos # (Auto) 0.4 th/mm3 (0.0-0.4); Eos % (Auto) 3.7 % (0.0-4.0); Hematocrit 25.2 % (35.0-46.0); Hemoglobin 8.1 gm/dL (11.6-15.3); Lymph # (Auto) 1.9 th/mm3 (1.0-4.8); Lymph % (Auto) 19.3 % (9.0-44.0); Mean Corpuscular Hemoglobin 30.8 pg (27.0-34.0); Mean Corpuscular Volume 96.1 fL (80.0-100.0); Mean Platelet Volume 10.9 fL (7.0-11.0); Mono # (Auto) 0.4 th/mm3 (0.0-0.9); Mono % (Auto) 4.3 % (0.0-8.0); Neut # (Auto) 7.1 th/mm3 (1.8-7.7); Neut % (Auto) 71.5 % (16.0-70.0); Platelet Count 253 th/mm3 (150-450); Red Blood Count 2.63 mil/mm3 (4.00-5.30); Red Cell Distribution Width 21.4 % (11.6-17.2)
[2018-01-21 07:55] LABS: Toxic Granulation 2+
[2018-01-21 07:56] LABS: Ovalocytes 1+; Platelet Estimate Normal (Normal)
[2018-01-21] MEDS: Potassium Phosphate 500 MG Soluble Tablet NG/OG SCH ×2 (08:31→21:04)
[2018-01-21] MEDS: Insulin Detemir Inj 1,000 UNIT/10 ML Vial SQ SCH ×2 (08:32→21:07)
[2018-01-21] MEDS: Senna/Docusate Sodium 8.6/50 MG Tablet NG/OG SCH ×2 (08:32→21:04)
[2018-01-21] MEDS: Metoprolol Tartrate 50 MG Tablet NG/OG SCH ×2 (08:32→21:05)
[2018-01-21] MEDS: hydrALAZINE 50 MG Tablet NG/OG SCH ×3 (08:33→18:27)
[2018-01-21] MEDS: Chlorhexidine 0.12% Oral Kit 15 ML UDC OROPHARYNG SCH ×2 (08:33→21:04)
--- NOTE | 2018-01-21 08:42 | XR ---
EXAM DATE: 01/21/2018 8:38 AM EST AGE/SEX: 52 years / Female INDICATIONS: Evaluate for Dobbhoff placement. CLINICAL DATA: This is the patient's subsequent encounter. Patient reports that signs and symptoms h ave been present for 3 days and indicates a pain score of 0/10. MEDICAL/SURGICAL HISTORY: Hypertension. Diabetes mellitus type II. Gastroesophageal reflux di sease. Hepatitis C None. COMPARISON: [facility] – [place], CHEST 1V SINGLE AP, 01/14/2018. . FINDINGS: Portable AP view of the chest demonstrates a normal-sized cardiac silhouette. Tracheostomy and feedin g tube remain present. The feeding tube distal tip is in the gastric fundus. Lungs are underinflated and there is perihilar and lower lung zone opacity. Lungs are underinflated. There is a possible pleu ral-based opacity on the left. No pneumothorax is identified. Bones and soft tissues demonstrate no a cute finding. CONCLUSION: 1. Feeding tube distal tip is in the gastric fundus. 2. Otherwise, stable examination with suspected small left pleural effusion and bilateral atelectasi s versus consolidation at the lung bases. Electronically signed by: Derek Grover MD 01/21/2018 8:41 AM EST
[2018-01-21] MEDS: Lisinopril 5 MG Tablet NG/OG SCH (08:44)
[2018-01-21] MEDS: Collagenase Oint 30 GM Tube TOPICAL SCH (08:44)
[2018-01-21] MEDS: Lansoprazole ODT 15 MG Tablet NG/OG SCH (08:44)
--- NOTE | 2018-01-21 08:55 | P.PN ---
Subjective Interval history: Follow-up sepsis and necrotizing fasciitis. Consulted by critical care medicine for transfer care medical management. Chart reviewed. Seen in [facility]. Has no complaints awake and ff commands. Per RN, respiratory distress in PACU but did not require vent. She remains on trach collar. Minimal trach secretions. Urine output of 275 mL overnight. Physical Exam Vital signs: Vital Signs 01/20/18 09:00 01/20/18 09:02 01/20/18 10:00 Temperature Pulse Rate 78 79 Respiratory Rate 24 24 Blood Pressure 168/72 H Pulse Oximetry 100 100 100 01/20/18 10:09 01/20/18 11:00 01/20/18 12:00 Temperature 98.9 F Pulse Rate 81 85 Respiratory Rate 20 21 Blood Pressure 163/72 H Pulse Oximetry 100 100 100 01/20/18 13:00 01/20/18 14:00 01/20/18 14:09 Temperature Pulse Rate 84 80 83 Respiratory Rate 24 24 25 H Blood Pressure 137/71 Pulse Oximetry 100 100 100 01/20/18 15:00 01/20/18 16:00 01/20/18 17:00 Temperature 97.5 F L Pulse Rate 84 85 87 Respiratory Rate 25 H 25 H 24 Blood Pressure 160/80 H Pulse Oximetry 100 100 100 01/20/18 17:06 01/20/18 18:00 01/20/18 18:09 Temperature Pulse Rate 85 84 87 Respiratory Rate 24 26 H 25 H Blood Pressure 151/69 H 157/79 H Pulse Oximetry 100 100 100 01/20/18 19:00 01/20/18 20:00 01/20/18 20:01 Temperature 98.4 F Pulse Rate 86 81 Respiratory Rate 23 24 Blood Pressure 118/74 Pulse Oximetry 100 100 100 01/20/18 20:20 01/20/18 21:00 01/20/18 22:00 Temperature Pulse Rate 71 81 81 Respiratory Rate 15 19 21 Blood Pressure 118/74 Pulse Oximetry 100 100 100 01/20/18 22:09 01/20/18 23:00 01/21/18 00:00 Temperature 98.0 F Pulse Rate 85 83 80 Respiratory Rate 21 21 22 Blood Pressure 172/79 H 128/71 Pulse Oximetry 100 100 100 01/21/18 01:00 01/21/18 02:00 01/21/18 02:09 Temperature Pulse Rate 78 81 81 Respiratory Rate 22 23 23 Blood Pressure 171/81 H Pulse Oximetry 100 100 100 01/21/18 04:00 01/21/18 04:29 01/21/18 07:00 Temperature 98.1 F Pulse Rate 92 H 75 Respiratory Rate 24 Blood Pressure 155/71 H Pulse Oximetry 99 100 100 01/21/18 08:00 01/21/18 08:04 Temperature 98.4 F Pulse Rate 76 Respiratory Rate 22 Blood Pressure 132/69 Pulse Oximetry 100 100 Intake & Output 01/20/18 01/21/18 01/21/18 18:59 06:59 18:59 Intake Total 1809 / 1809 1600 / 1600 Output Total 1025 / 1025 1250 / 1250 Balance 784 / 784 350 / 350 Weight 68.8 kg Intake: IV 1300 / 1300 1050 / 1050 Potassium Chlor 20 mEq/NACL 0. 1000 / 1000 1000 / 1000 45% Inj 1,000 ML @ 84 mls/hr IV .CONT .[id number] RICARDO Rx#:[id number] Diflucan 200 mg Premix Bag 100 200 / 200 ML @ 100 mls/hr IV.SIG Q24H RICARDO Rx#:[id number] Zosyn 3.375 GM Premix 50 ML @ 100 / 100 50 / 50 100 mls/hr IV.SIG Q6H RICARDO Rx#: [id number] Tube Feeding 509 / 509 150 / 150 Water Bolus Amount 400 / 400 Output: Stool 200 / 200 150 / 150 Urine Amount (Catheter) 750 / 750 1000 / 1000 Indwelling Urethral Catheter 750 / 750 1000 / 1000 Wound Vac Amount 75 / 75 100 / 100 Posterior Sacrum 75 / 75 100 / 100 Other: Mode Setting Posterior Sacrum Continuous Intermittent Date of Last Bowel Movement 01/20/18 01/21/18 Narrative: General: Cachectic middle-aged woman, on T-piece via tracheostomy. Lungs: Supplemental oxygen through tracheostomy. Good bilateral breath sounds, clear. Acceptable cough effort Heart: RRR. Normal S1-S2, no JVD. Abdomen: Soft, no guarding, nondistended, nontender, bowel sounds active Back: Wound VAC remains in place over lower bilateral lumbar region. Surrounding skin is mildly erythematous. Musculoskeletal: Warm, well perfused, status post below-knee amputation right side, well-healed. Neurological: Wiggle her fingers and toes. Pupils 2 mm, reactive. Tracks with eyes. Cough and gag intact. Appears to understand conversation. - Urinary Catheter Management Indwelling Urethral Catheter Cath placed during this visit: yes Reason for continuing: Acute urinary retention Insertion date: 01/13/18 Insertion time: 01:00 1 Cath placed during this visit: yes, but has since been removed by the nurse Urethral indwelling: Yes Reason for continuing: Severe pressure ulcer/wound Insertion date: 12/15/17 Removal date: 01/13/18 Removal time: 01:00 Results - Labs CBC & Chem 7: 01/21/18 04:39 01/21/18 04:39 Laboratory Results - last 24 hr 01/20/18 01/20/18 01/20/18 15:56 19:46 23:37 WBC RBC Hgb Hct MCV MCH MCHC RDW Plt Count MPV Prelim Diff (Auto) Neut % (Auto) Lymph % (Auto) [place] % (Auto) Eos % (Auto) Baso % (Auto) Neut # (Auto) Lymph # (Auto) [place] # (Auto) Eos # (Auto) Baso # (Auto) WBC Differential Diff Scan Differential Comment Toxic Granulation Platelet Estimate Platelet Morphology Ovalocytes Hematology Comments Sodium Potassium Chloride Carbon Dioxide Anion Gap BUN Creatinine Estimated GFR POC Glucose 192 H 198 H 198 H Random Glucose Calcium Phosphorus Magnesium 01/21/18 01/21/18 01/21/18 03:46 04:39 04:39 WBC 10.0 RBC 2.63 L Hgb 8.1 L Hct 25.2 L MCV 96.1 D MCH 30.8 MCHC 32.0 RDW 21.4 H Plt Count 253 MPV 10.9 Prelim Diff (Auto) Slide review pending Neut % (Auto) 71.5 H Lymph % (Auto) 19.3 [place] % (Auto) 4.3 Eos % (Auto) 3.7 Baso % (Auto) 1.2 Neut # (Auto) 7.1 Lymph # (Auto) 1.9 [place] # (Auto) 0.4 Eos # (Auto) 0.4 Baso # (Auto) 0.1 WBC Differential . Diff Scan Auto diff confirmed Differential Comment . Toxic Granulation 2+ H Platelet Estimate Normal Platelet Morphology Enlarged H Ovalocytes 1+ H Hematology Comments Sodium 141 Potassium 4.7 Chloride 113 H Carbon Dioxide 20.0 L Anion Gap 8 BUN 23 H Creatinine 0.61 Estimated GFR Greater than 89 POC Glucose 170 H Random Glucose 176 H Calcium 8.0 L Phosphorus 2.5 Magnesium 2.2 01/21/18 08:26 WBC RBC Hgb Hct MCV MCH MCHC RDW Plt Count MPV Prelim Diff (Auto) Neut % (Auto) Lymph % (Auto) [place] % (Auto) Eos % (Auto) Baso % (Auto) Neut # (Auto) Lymph # (Auto) [place] # (Auto) Eos # (Auto) Baso # (Auto) WBC Differential Diff Scan Differential Comment Toxic Granulation Platelet Estimate Platelet Morphology Ovalocytes Hematology Comments Sodium Potassium Chloride Carbon Dioxide Anion Gap BUN Creatinine Estimated GFR POC Glucose 196 H Random Glucose Calcium Phosphorus Magnesium - Imaging Impressions Chest X-Ray 01/21/18 00:00 CONCLUSION: 1. Feeding tube distal tip is in the gastric fundus. 2. Otherwise, stable examination with suspected small left pleural effusion and bilateral atelectasis versus consolidation at the lung bases. - Procedures lumbar wd debridement with wd vac Assessment and Plan - Assessment (1) MARIO (acute kidney injury) Code(s): N17.9 - Acute kidney failure, unspecified Status: Acute (2) Hypernatremia Code(s): E87.0 - Hyperosmolality and hypernatremia Status: Acute (3) Type 2 diabetes mellitus with hyperosmolar nonketotic hyperglycemia Code(s): E11.01 - Type 2 diabetes mellitus with hyperosmolarity with coma Status: Acute (4) Necrotizing fasciitis of pelvic region and thigh Code(s): M72.6 - Necrotizing fasciitis Status: Acute - Plan Neurological Acute metabolic encephalopathy Resolved Cardiovascular Septic Shock- improving Myocardial dysfunction secondary to septic shock Fluid overload Tapered levophed off Respiratory Acute hypoxic and hypercarbic respiratory failure- persistent - s/p Trach in OR 12/28/17. -Discontinue mechanical ventilation assist control mode. -Tolerating T-piece Endocrinology Diabetes Severe hyperglycemia. Improved - Med scale SSI. - Follow potassium and magnesium closely - Ongoing adjustments with basal insulin following episode of sepsis, requirements now declining Hematology/Infectious Disease Septic Shock Necrotizing soft tissue infection CAUTI, PSAE PNA, PSAE - Follow white count and platelet count closely. - Continue daptomycin and Zosyn. Diflucan for fungal coverage. - General surgery service following back wounds, scheduling debridement. GI Acute protein calorie malnutrition- severe - prealbumin 5 on 12/18. severely malnourished. - Tube feeds infusing, tolerated - Follow prealbumin weekly - Dignishield placed to protect wounds from soilage. - Follow prealbumin weekly. Calorie count - refused PEG Acute kidney injury - Tristan required for hourly urine output and to protect perineal region. - May ultimately require colostomy to protect this region. - CAUTI now. Cannot think of a solution to the problem of continuous wound soilage. Refused colostomy HEME Left upper extremity DVT Anemia. Improved - DVT left internal jugular, subclavian, axillary and distal arm veins. - Cannot anticoagulate secondary to blood loss anemia requiring blood transfusion, frequent surgeries. - Arterial inflow into the left arm and hand is good. Prophylaxis - Pepcid for GI ulcer prophylaxis - SCDs for DVT prophylaxis - chemical DVT prophylaxis with Lovenox if okay with general surgery Lines: PIV Overall impression: This woman was initially critically ill and in septic shock with necrotizing fasciitis emanating from a deep chronic sacral decubitus ulcer. She has required multiple OR trips for I&D and VAC changes. Family request continued aggressive care. She had a recurrent bout of severe sepsis on 01/14 but after 2 debridements she is very much improved. Now on T-piece, hemodynamically stable, and ready to be transferred to the floor.
[2018-01-21] MEDS ORDERED: fentaNYL Citrate Inj 250 MCG/5 ML Ampul ONE (09:24)
[2018-01-21] MEDS ORDERED: Phenylephrine/NS 1000 MCG/10ML Syringe IV.PUSH ONE (09:30)
--- NOTE | 2018-01-21 09:31 | P.OP ---
- Preoperative Diagnosis (1) Necrotizing fasciitis of pelvic region and thigh - Postoperative Diagnosis (1) Necrotizing fasciitis of pelvic region and thigh Procedure: vac change to buttock, lower back, thighs Anesthesia: GETA Surgeon: Ventura Bazzi MD Estimated blood loss (mL): 5 Pathology: none sent Operation and Findings: better granulation tissue
--- NOTE | 2018-01-21 13:08 | P.PNID ---
Subjective Remarks: Patient transferred to [facility] with respiratory distress, fever and altered mental status. Tachypneic with increased respiratory rate and tachycardic. Patient is awake and responsive. Mouthing words. No fever. Wound VAC changed today. This is a 52-year-old white female who was brought to the emergency department after she fell at home. The patient was noted to have profound weakness. She was evaluated in the emergency department and at that time had normal temperature and white blood cell count was also normal. She underwent CT scan of the abdomen and pelvis that showed extensive subcutaneous and soft tissue gas bilaterally with the left greater than right, most severe in the left gluteal region and extending into the proximal posterior thigh soft tissue and air-fluid dissecting through the gluteal musculature. Antibiotics: Diflucan. Piperacillin/tazobactam Flagyl Allergies/Adverse Reactions: Allergies No Known Allergies Allergy (Verified 12/15/17 07:54) Objective Vital Signs 01/20/18 14:00 01/20/18 14:09 01/20/18 15:00 Temperature Pulse Rate 80 83 84 Respiratory Rate 24 25 H 25 H Blood Pressure 137/71 Pulse Oximetry 100 100 100 01/20/18 16:00 01/20/18 17:00 01/20/18 17:06 Temperature 97.5 F L Pulse Rate 85 87 85 Respiratory Rate 25 H 24 24 Blood Pressure 160/80 H 151/69 H Pulse Oximetry 100 100 100 01/20/18 18:00 01/20/18 18:09 01/20/18 19:00 Temperature Pulse Rate 84 87 86 Respiratory Rate 26 H 25 H 23 Blood Pressure 157/79 H Pulse Oximetry 100 100 100 01/20/18 20:00 01/20/18 20:01 01/20/18 20:20 Temperature 98.4 F Pulse Rate 81 71 Respiratory Rate 24 15 Blood Pressure 118/74 118/74 Pulse Oximetry 100 100 100 01/20/18 21:00 01/20/18 22:00 01/20/18 22:09 Temperature Pulse Rate 81 81 85 Respiratory Rate 19 21 21 Blood Pressure 172/79 H Pulse Oximetry 100 100 100 01/20/18 23:00 01/21/18 00:00 01/21/18 01:00 Temperature 98.0 F Pulse Rate 83 80 78 Respiratory Rate 21 22 22 Blood Pressure 128/71 Pulse Oximetry 100 100 100 01/21/18 02:00 12/03/18 02:09 01/21/18 04:00 Temperature 98.1 F Pulse Rate 81 81 92 H Respiratory Rate 23 23 Blood Pressure 171/81 H 155/71 H Pulse Oximetry 100 100 99 01/21/18 04:29 01/21/18 07:00 01/21/18 08:00 Temperature 98.4 F Pulse Rate 75 76 Respiratory Rate 24 22 Blood Pressure 132/69 Pulse Oximetry 100 100 100 01/21/18 08:04 01/21/18 10:42 01/21/18 10:45 Temperature 97.5 F L 97.5 F L Pulse Rate 84 86 Respiratory Rate 22 20 Blood Pressure 133/84 124/79 Pulse Oximetry 100 98 97 01/21/18 11:00 Temperature 97.5 F L Pulse Rate 87 Respiratory Rate 24 Blood Pressure 126/71 Pulse Oximetry 99 Intake & Output 01/20/18 01/21/18 01/21/18 18:59 06:59 18:59 Intake Total 1809 / 1809 1600 / 1600 580 / 580 Output Total 1025 / 1025 1250 / 1250 590 / 590 Balance 784 / 784 350 / 350 -10 / -10 Weight 68.8 kg Intake: IV 1300 / 1300 1050 / 1050 Potassium Chlor 20 mEq/NACL 0. 1000 / 1000 1000 / 1000 45% Inj 1,000 ML @ 84 mls/hr IV .CONT .[id number] RICARDO Rx#:[id number] Diflucan 200 mg Premix Bag 100 200 / 200 ML @ 100 mls/hr IV.SIG Q24H RICARDO Rx#:[id number] Zosyn 3.375 GM Premix 50 ML @ 100 / 100 50 / 50 100 mls/hr IV.SIG Q6H RICARDO Rx#: [id number] Tube Feeding 509 / 509 150 / 150 Water Bolus Amount 400 / 400 80 / 80 Anesthesia Amount 500 / 500 Output: Stool 200 / 200 150 / 150 Estimated Blood Loss 15 / 15 Urine Amount (Catheter) 750 / 750 1000 / 1000 275 / 275 Indwelling Urethral Catheter 750 / 750 1000 / 1000 275 / 275 Wound Vac Amount 75 / 75 100 / 100 300 / 300 Posterior Sacrum 75 / 75 100 / 100 300 / 300 Other: Mode Setting Posterior Sacrum Continuous Intermittent Continuous Date of Last Bowel Movement 01/20/18 01/21/18 01/21/18 01/14/18 10:30 Blood - Peripheral Aerobic Blood Culture - Final No growth in 5 days 01/14/18 10:30 Blood - Peripheral Anaerobic Blood Culture - Final No growth in 5 days 01/14/18 10:35 Blood - Peripheral Aerobic Blood Culture - Final No growth in 5 days 01/14/18 10:35 Blood - Peripheral Anaerobic Blood Culture - Final No growth in 5 days Lab - Hematology Results 01/20/18 01/21/18 04:02 04:39 WBC 9.1 10.0 RBC 2.36 L 2.63 L Hgb 7.2 L 8.1 L Hct 21.6 L 25.2 L MCV 91.4 96.1 D MCH 30.3 30.8 MCHC 33.1 32.0 RDW 20.0 H 21.4 H Plt Count 241 253 MPV 11.1 H 10.9 Prelim Diff (Auto) Slide review pending Neut % (Auto) 74.9 H 71.5 H Lymph % (Auto) 16.2 19.3 [place] % (Auto) 3.7 4.3 Eos % (Auto) 4.3 H 3.7 Baso % (Auto) 0.9 1.2 Neut # (Auto) 6.8 7.1 Lymph # (Auto) 1.5 1.9 [place] # (Auto) 0.3 0.4 Eos # (Auto) 0.4 0.4 Baso # (Auto) 0.1 0.1 WBC Differential . . Diff Scan Auto diff confirmed Differential Comment Auto diff final . Toxic Granulation 2+ H Platelet Estimate Normal Platelet Morphology Enlarged H Ovalocytes 1+ H Hematology Comments Lab - Chemistry Results 01/19/18 01/19/18 01/19/18 15:28 19:22 19:58 Sodium Potassium Chloride Carbon Dioxide Anion Gap BUN Creatinine Estimated GFR POC Glucose 87 128 H Random Glucose Calcium Phosphorus 3.2 D Magnesium 01/19/18 01/20/18 01/20/18 23:51 04:02 05:45 Sodium 142 Potassium 4.2 Chloride 113 H Carbon Dioxide 20.7 L Anion Gap 8 BUN 27 H Creatinine 0.75 Estimated GFR 81 L POC Glucose 179 H 247 H Random Glucose 207 H D Calcium 7.8 L Phosphorus Magnesium 01/20/18 01/20/18 01/20/18 07:24 15:56 19:46 Sodium Potassium Chloride Carbon Dioxide Anion Gap BUN Creatinine Estimated GFR POC Glucose 253 H 192 H 198 H Random Glucose Calcium Phosphorus Magnesium 01/20/18 01/21/18 01/21/18 23:37 03:46 04:39 Sodium 141 Potassium 4.7 Chloride 113 H Carbon Dioxide 20.0 L Anion Gap 8 BUN 23 H Creatinine 0.61 Estimated GFR Greater than 89 POC Glucose 198 H 170 H Random Glucose 176 H Calcium 8.0 L Phosphorus 2.5 Magnesium 2.2 01/21/18 08:26 Sodium Potassium Chloride Carbon Dioxide Anion Gap BUN Creatinine Estimated GFR POC Glucose 196 H Random Glucose Calcium Phosphorus Magnesium Imaging: ITS Impressions Femur X-Ray 12/15/17 07:05 CONCLUSION: No fracture is identified. There is extensive soft tissue air in the right gluteal region and extending into the proximal and mid posterior thigh. The soft tissue air suggests an open wound. Pelvis X-Ray 12/15/17 07:05 CONCLUSION: No fracture is identified. However, there is extensive soft tissue air in the left gluteal region and left proximal thigh. Pelvis CT 12/15/17 07:52 CONCLUSION: 1. No fracture is identified. 2. Extensive subcutaneous and soft tissue gas bilaterally, left greater than right. It is most severe in the left gluteal region and extends into the proximal posterior thigh. The soft tissue air dissects through the gluteal musculature. There is adjacent subcutaneous edema. Foot X-Ray 12/18/17 00:00 CONCLUSION: Remote small avulsion fracture at the fifth toe. No acute bony abnormality. Venous Doppler Study 12/22/17 00:00 CONCLUSION: Extensive deep vein thrombosis of the left upper extremity. Abdomen X-Ray 01/19/18 21:06 CONCLUSION: 1. Feeding type Dobbhoff tube in the mid stomach. 2. Mild gaseous distention of the stomach. Chest X-Ray 01/21/18 00:00 CONCLUSION: 1. Feeding tube distal tip is in the gastric fundus. 2. Otherwise, stable examination with suspected small left pleural effusion and bilateral atelectasis versus consolidation at the lung bases. Physical Exam: PHYSICAL EXAMINATION: GENERAL: Awake. No distress. HEENT: Pale sclera. No icterus. NECK: Supple. No adenopathy or swelling. LUNGS: Decreased breath sounds. HEART: irregular S1 and S2. 1-2/6 systolic murmur at the left sternal border. ABDOMEN: Bowel sounds present, soft. BACK: Surgical wound post debridement across the lower back, buttock and thigh. Vac in place. EXTREMITIES: No clubbing, no cyanosis or edema. abrasion with dry necrotic changes at left dorsal toes 2-4. SKIN: No diffuse rash. Scattered ecchymotic lesions. NEUROLOGIC: Unable to assess. PSYCHIATRIC: Calm. Assessment and Plan - Plan IMPRESSION: 1. Necrotizing fasciitis of the back, buttock and thigh. Talia albicans and Talia tropicalis. 2. Septic shock. Responded to broad-spectrum antibiotics. 3. Acute respiratory failure. 4. Chronic kidney disease. 5. Leukocytosis. Improved. 6. UTI - pseudomonas. 7. New episode of sepsis. 8. PNA pseudomonas. Probable aspiration. RECOMMENDATIONS: 1. Continue Diflucan. 2. Continue Flagyl p.o. empiric anaerobic coverage. 3. Continue Zosyn. 4. Monitor clinical status.
--- NOTE | 2018-01-21 15:59 | P.PNNP ---
Subjective Interval history: Patient on trach collar oxygen Physical Exam Vital signs: Vital Signs 01/20/18 16:00 01/20/18 17:00 01/20/18 17:06 Temperature 97.5 F L Pulse Rate 85 87 85 Respiratory Rate 25 H 24 24 Blood Pressure 160/80 H 151/69 H Pulse Oximetry 100 100 100 01/20/18 18:00 01/20/18 18:09 01/20/18 19:00 Temperature Pulse Rate 84 87 86 Respiratory Rate 26 H 25 H 23 Blood Pressure 157/79 H Pulse Oximetry 100 100 100 01/20/18 20:00 01/20/18 20:01 01/20/18 20:20 Temperature 98.4 F Pulse Rate 81 71 Respiratory Rate 24 15 Blood Pressure 118/74 118/74 Pulse Oximetry 100 100 100 01/20/18 21:00 01/20/18 22:00 01/20/18 22:09 Temperature Pulse Rate 81 81 85 Respiratory Rate 19 21 21 Blood Pressure 172/79 H Pulse Oximetry 100 100 100 01/20/18 23:00 01/21/18 00:00 01/21/18 01:00 Temperature 98.0 F Pulse Rate 83 80 78 Respiratory Rate 21 22 22 Blood Pressure 128/71 Pulse Oximetry 100 100 100 01/21/18 02:00 01/21/18 02:09 01/21/18 04:00 Temperature 98.1 F Pulse Rate 81 81 92 H Respiratory Rate 23 23 Blood Pressure 171/81 H 155/71 H Pulse Oximetry 100 100 99 01/21/18 04:29 01/21/18 07:00 01/21/18 08:00 Temperature 98.4 F Pulse Rate 75 76 Respiratory Rate 24 22 Blood Pressure 132/69 Pulse Oximetry 100 100 100 01/21/18 08:04 01/21/18 08:28 01/21/18 09:00 Temperature Pulse Rate 77 Respiratory Rate 24 Blood Pressure 132/69 132/69 Pulse Oximetry 100 100 01/21/18 10:42 01/21/18 10:45 01/21/18 11:00 Temperature 97.5 F L 97.5 F L 97.5 F L Pulse Rate 84 86 87 Respiratory Rate 22 20 24 Blood Pressure 133/84 124/79 126/71 Pulse Oximetry 98 97 99 01/21/18 11:29 01/21/18 11:45 01/21/18 12:00 Temperature 97.9 F Pulse Rate 85 87 88 Respiratory Rate 25 H 30 H 22 Blood Pressure 118/62 115/61 113/57 L Pulse Oximetry 99 100 01/21/18 12:30 01/21/18 13:00 01/21/18 14:00 Temperature Pulse Rate 84 81 89 Respiratory Rate 28 H 26 H 25 H Blood Pressure 121/56 L 115/65 117/59 L Pulse Oximetry 100 100 100 01/21/18 14:30 01/21/18 15:00 Temperature Pulse Rate 78 79 Respiratory Rate 20 18 Blood Pressure 114/62 110/59 L Pulse Oximetry 100 100 Intake & Output 01/20/18 01/21/18 01/21/18 18:59 06:59 18:59 Intake Total 1809 / 1809 1650 / 1650 780 / 780 Output Total 1025 / 1025 1250 / 1250 590 / 590 Balance 784 / 784 400 / 400 190 / 190 Weight 68.8 kg Intake: IV 1300 / 1300 1100 / 1100 Potassium Chlor 20 mEq/NACL 0. 1000 / 1000 1000 / 1000 45% Inj 1,000 ML @ 84 mls/hr IV .CONT .[id number] RICARDO Rx#:[id number] Diflucan 200 mg Premix Bag 100 200 / 200 ML @ 100 mls/hr IV.SIG Q24H RICARDO Rx#:[id number] Zosyn 3.375 GM Premix 50 ML @ 100 / 100 100 / 100 100 mls/hr IV.SIG Q6H RICARDO Rx#: [id number] Tube Feeding 509 / 509 150 / 150 Water Bolus Amount 400 / 400 280 / 280 Anesthesia Amount 500 / 500 Output: Stool 200 / 200 150 / 150 Estimated Blood Loss 15 / 15 Urine Amount (Catheter) 750 / 750 1000 / 1000 275 / 275 Indwelling Urethral Catheter 750 / 750 1000 / 1000 275 / 275 Wound Vac Amount 75 / 75 100 / 100 300 / 300 Posterior Sacrum 75 / 75 100 / 100 300 / 300 Other: Mode Setting Posterior Sacrum Continuous Intermittent Continuous Date of Last Bowel Movement 01/20/18 01/21/18 01/21/18 Narrative: General: Cachectic middle-aged woman, on T-piece via tracheostomy. Lungs: Supplemental oxygen through tracheostomy. Good bilateral breath sounds, clear. Acceptable cough effort Heart: RRR. Normal S1-S2, no JVD. Abdomen: Soft, no guarding, nondistended, nontender, bowel sounds active Back: Wound VAC remains in place over lower bilateral lumbar region. Surrounding skin is mildly erythematous. Musculoskeletal: Warm, well perfused, status post below-knee amputation right side, well-healed. Neurological: Awake and alert responding - Urinary Catheter Management Indwelling Urethral Catheter Cath placed during this visit: yes Reason for continuing: Acute urinary retention Insertion date: 01/13/18 Insertion time: 01:00 1 Cath placed during this visit: yes, but has since been removed by the nurse Urethral indwelling: Yes Reason for continuing: Severe pressure ulcer/wound Insertion date: 12/15/17 Removal date: 01/13/18 Removal time: 01:00 Assessment and Plan - Assessment (1) MARIO (acute kidney injury) Code(s): N17.9 - Acute kidney failure, unspecified Status: Acute (2) Hypernatremia Code(s): E87.0 - Hyperosmolality and hypernatremia Status: Acute (3) Type 2 diabetes mellitus with hyperosmolar nonketotic hyperglycemia Code(s): E11.01 - Type 2 diabetes mellitus with hyperosmolarity with coma Status: Acute (4) Necrotizing fasciitis of pelvic region and thigh Code(s): M72.6 - Necrotizing fasciitis Status: Acute - Plan Patient was requiring frequent surgery and debridement getting IV fluids sodium has improved to 141 creatinine 0.61 Stable from nephrology point of view on current free water will follow as needed
[2018-01-21] MEDS: Lactic Acid (Ammonium Lactate) 12% Lotion 225 GM Bottle TOPICAL SCH ×2 (17:48→21:06)
[2018-01-21] MEDS: Enoxaparin Inj 30 MG/0.3 ML Syringe SQ SCH (18:26)
--- NOTE | 2018-01-21 20:18 | P.PNPLA ---
Objective Vital Signs: Vital Signs - 24 hr 01/20/18 20:20 01/20/18 21:00 01/20/18 22:00 Temperature Pulse Rate 71 81 81 Respiratory Rate 15 19 21 Blood Pressure 118/74 Pulse Oximetry 100 100 100 01/20/18 22:09 01/20/18 23:00 01/21/18 00:00 Temperature 98.0 F Pulse Rate 85 83 80 Respiratory Rate 21 21 22 Blood Pressure 172/79 H 128/71 Pulse Oximetry 100 100 100 01/21/18 01:00 01/21/18 02:00 01/21/18 02:09 Temperature Pulse Rate 78 81 81 Respiratory Rate 22 23 23 Blood Pressure 171/81 H Pulse Oximetry 100 100 100 01/21/18 04:00 01/21/18 04:29 01/21/18 07:00 Temperature 98.1 F Pulse Rate 92 H 75 Respiratory Rate 24 Blood Pressure 155/71 H Pulse Oximetry 99 100 100 01/21/18 08:00 01/21/18 08:04 01/21/18 08:28 Temperature 98.4 F Pulse Rate 76 Respiratory Rate 22 Blood Pressure 132/69 132/69 Pulse Oximetry 100 100 01/21/18 09:00 01/21/18 10:42 01/21/18 10:45 Temperature 97.5 F L 97.5 F L Pulse Rate 77 84 86 Respiratory Rate 24 22 20 Blood Pressure 132/69 133/84 124/79 Pulse Oximetry 100 98 97 01/21/18 11:00 01/21/18 11:29 01/21/18 11:45 Temperature 97.5 F L Pulse Rate 87 85 87 Respiratory Rate 24 25 H 30 H Blood Pressure 126/71 118/62 115/61 Pulse Oximetry 99 99 01/21/18 12:00 01/21/18 12:30 01/21/18 13:00 Temperature 97.9 F Pulse Rate 88 84 81 Respiratory Rate 22 28 H 26 H Blood Pressure 113/57 L 121/56 L 115/65 Pulse Oximetry 100 100 100 01/21/18 14:00 01/21/18 14:30 01/21/18 15:00 Temperature Pulse Rate 89 78 79 Respiratory Rate 25 H 20 18 Blood Pressure 117/59 L 114/62 110/59 L Pulse Oximetry 100 100 100 01/21/18 15:30 12/03/18 16:00 Temperature 98.5 F Pulse Rate 85 76 Respiratory Rate 19 18 Blood Pressure 125/60 121/60 Pulse Oximetry 100 100 Intake & Output 01/19/18 01/20/18 01/21/18 01/22/18 06:59 06:59 06:59 06:59 Intake Total 3021.625 / 3021.625 3387 / 3387 3459 / 3459 2433 / 2433 Output Total 3330 / 3330 2825 / 2825 2275 / 2275 1190 / 1190 Balance -308.375 / -308.375 562 / 562 1184 / 1184 1243 / 1243 Weight 67.6 kg 63.7 kg 68.8 kg Laboratory Results: Laboratory Results - last 24 hr 01/20/18 01/21/18 01/21/18 23:37 03:46 04:39 WBC 10.0 RBC 2.63 L Hgb 8.1 L Hct 25.2 L MCV 96.1 D MCH 30.8 MCHC 32.0 RDW 21.4 H Plt Count 253 MPV 10.9 Prelim Diff (Auto) Slide review pending Neut % (Auto) 71.5 H Lymph % (Auto) 19.3 [place] % (Auto) 4.3 Eos % (Auto) 3.7 Baso % (Auto) 1.2 Neut # (Auto) 7.1 Lymph # (Auto) 1.9 [place] # (Auto) 0.4 Eos # (Auto) 0.4 Baso # (Auto) 0.1 WBC Differential . Diff Scan Auto diff confirmed Differential Comment . Toxic Granulation 2+ H Platelet Estimate Normal Platelet Morphology Enlarged H Ovalocytes 1+ H Hematology Comments Sodium Potassium Chloride Carbon Dioxide Anion Gap BUN Creatinine Estimated GFR POC Glucose 198 H 170 H Random Glucose Calcium Phosphorus Magnesium 01/21/18 01/21/18 01/21/18 04:39 08:26 15:36 WBC RBC Hgb Hct MCV MCH MCHC RDW Plt Count MPV Prelim Diff (Auto) Neut % (Auto) Lymph % (Auto) [place] % (Auto) Eos % (Auto) Baso % (Auto) Neut # (Auto) Lymph # (Auto) [place] # (Auto) Eos # (Auto) Baso # (Auto) WBC Differential Diff Scan Differential Comment Toxic Granulation Platelet Estimate Platelet Morphology Ovalocytes Hematology Comments Sodium 141 Potassium 4.7 Chloride 113 H Carbon Dioxide 20.0 L Anion Gap 8 BUN 23 H Creatinine 0.61 Estimated GFR Greater than 89 POC Glucose 196 H 180 H Random Glucose 176 H Calcium 8.0 L Phosphorus 2.5 Magnesium 2.2 Result Diagrams: 01/21/18 04:39 01/21/18 04:39 Exam Findings: Patient operated today. Wound VAC in place. Unable to evaluate patient. Please contact me prior to the next debridement so that I may see the open wound.
[2018-01-22] MEDS: Piperacil/Tazo 3.375 GM Premix 50 ML IV.SIG SCH ×4 (01:40→18:24)
[2018-01-22] MEDS: Oral Hygiene Kit OROPHARYNG SCH ×3 (04:08→15:44)
[2018-01-22] MEDS: Insulin NovoLIN Regular Correctional Sugar Inj SQ SCH ×4 (04:24→22:37)
[2018-01-22] MEDS: KCL 20 mEq/NACL 0.45% Inj 1,000 ML IV.CONT SCH (06:17)
[2018-01-22] MEDS: metroNIDAZOLE 500 MG Tablet NG/OG SCH ×3 (06:18→22:36)
[2018-01-22 06:54] LABS: Baso # (Auto) 0.1 th/mm3 (0.0-0.2); Baso % (Auto) 0.9 % (0.0-2.0); Eos # (Auto) 0.3 th/mm3 (0.0-0.4); Eos % (Auto) 2.8 % (0.0-4.0); Hematocrit 24.2 % (35.0-46.0); Hemoglobin 7.9 gm/dL (11.6-15.3); Lymph # (Auto) 2.4 th/mm3 (1.0-4.8); Lymph % (Auto) 21.4 % (9.0-44.0); Mean Corpuscular HGB Conc 32.6 % (32.0-36.0); Mean Corpuscular Hemoglobin 30.7 pg (27.0-34.0); Mean Corpuscular Volume 94.1 fL (80.0-100.0); Mean Platelet Volume 10.6 fL (7.0-11.0); Mono # (Auto) 0.5 th/mm3 (0.0-0.9); Mono % (Auto) 4.4 % (0.0-8.0); Neut # (Auto) 7.7 th/mm3 (1.8-7.7); Neut % (Auto) 70.5 % (16.0-70.0); Platelet Count 294 th/mm3 (150-450); Red Blood Count 2.57 mil/mm3 (4.00-5.30); Red Cell Distribution Width 20.8 % (11.6-17.2)
[2018-01-22 07:09] LABS: Anion Gap 7 meq/L (5-15); Blood Urea Nitrogen 26 mg/dL (7-18); Calcium 8.1 mg/dL (8.5-10.1); Carbon Dioxide 20.1 meq/L (21.0-32.0); Chloride 112 meq/L (98-107); Glomerular Filtration Rate Greater Than 89 mL/min (>89); Glucose,Random 133 mg/dL (74-106); Potassium 5.4 meq/L (3.5-5.1); Sodium 139 meq/L (136-145)
--- NOTE | 2018-01-22 07:37 | P.PNGS ---
Subjective Patient reports: no new complaints Physical Exam Vital signs: Vital Signs 01/21/18 08:00 01/21/18 08:04 01/21/18 08:28 Temperature 98.4 F Pulse Rate 76 Respiratory Rate 22 Blood Pressure 132/69 132/69 Pulse Oximetry 100 100 01/21/18 09:00 01/21/18 10:42 01/21/18 10:45 Temperature 97.5 F L 97.5 F L Pulse Rate 77 84 86 Respiratory Rate 24 22 20 Blood Pressure 132/69 133/84 124/79 Pulse Oximetry 100 98 97 01/21/18 11:00 01/21/18 11:29 01/21/18 11:45 Temperature 97.5 F L Pulse Rate 87 85 87 Respiratory Rate 24 25 H 30 H Blood Pressure 126/71 118/62 115/61 Pulse Oximetry 99 99 01/21/18 12:00 01/21/18 12:30 01/21/18 13:00 Temperature 97.9 F Pulse Rate 88 84 81 Respiratory Rate 22 28 H 26 H Blood Pressure 113/57 L 121/56 L 115/65 Pulse Oximetry 100 100 100 01/21/18 14:00 01/21/18 14:30 01/21/18 15:00 Temperature Pulse Rate 89 78 79 Respiratory Rate 25 H 20 18 Blood Pressure 117/59 L 114/62 110/59 L Pulse Oximetry 100 100 100 01/21/18 15:30 01/21/18 16:00 01/21/18 19:00 Temperature 98.5 F Pulse Rate 85 76 89 Respiratory Rate 19 18 24 Blood Pressure 125/60 121/60 127/66 Pulse Oximetry 100 100 100 01/21/18 20:00 01/21/18 21:46 01/21/18 22:00 Temperature 98.5 F Pulse Rate 93 H 75 Respiratory Rate 24 21 21 Blood Pressure 131/71 116/66 Pulse Oximetry 100 100 01/21/18 22:45 01/21/18 23:00 01/22/18 00:00 Temperature 98.2 F Pulse Rate 75 70 Respiratory Rate 21 22 19 Blood Pressure 122/69 114/66 Pulse Oximetry 100 100 01/22/18 01:00 01/22/18 02:00 01/22/18 02:27 Temperature Pulse Rate 80 83 Respiratory Rate 23 20 Blood Pressure 130/63 127/72 Pulse Oximetry 100 100 100 01/22/18 04:00 01/22/18 05:00 01/22/18 06:00 Temperature 98.4 F Pulse Rate 84 81 91 H Respiratory Rate 21 23 23 Blood Pressure 112/61 112/65 Pulse Oximetry 100 100 99 Intake & Output 01/21/18 01/22/18 01/22/18 18:59 06:59 18:59 Intake Total 2283 / 2283 1626 / 1626 Output Total 1190 / 1190 1350 / 1350 Balance 1093 / 1093 276 / 276 Weight 66.2 kg Intake: IV 1150 / 1150 1250 / 1250 Potassium Chlor 20 mEq/NACL 0. 1000 / 1000 1000 / 1000 45% Inj 1,000 ML @ 84 mls/hr IV .CONT .[id number] RICARDO Rx#:[id number] Diflucan 200 mg Premix Bag 100 100 / 100 100 / 100 ML @ 100 mls/hr IV.SIG Q24H RICARDO Rx#:[id number] Zosyn 3.375 GM Premix 50 ML @ 50 / 50 150 / 150 100 mls/hr IV.SIG Q6H RICARDO Rx#: [id number] Tube Feeding 93 / 93 376 / 376 Water Bolus Amount 540 / 540 Anesthesia Amount 500 / 500 Output: Stool 50 / 50 Urine/Stool Mix 800 / 800 Estimated Blood Loss 15 / 15 Urine Amount (Catheter) 675 / 675 550 / 550 Indwelling Urethral Catheter 675 / 675 550 / 550 Wound Vac Amount 450 / 450 Posterior Sacrum 450 / 450 Other: Mode Setting Posterior Sacrum Continuous Continuous Date of Last Bowel Movement 01/21/18 01/22/18 - Routine Extremities Exam Present: edema (vac good sxn, in tact, to back buttock thigh) - Urinary Catheter Management Indwelling Urethral Catheter Cath placed during this visit: yes Reason for continuing: Acute urinary retention Insertion date: 01/13/18 Insertion time: 01:00 1 Cath placed during this visit: yes, but has since been removed by the nurse Urethral indwelling: Yes Reason for continuing: Severe pressure ulcer/wound Insertion date: 12/15/17 Removal date: 01/13/18 Removal time: 01:00 Results - Labs 01/22/18 06:12 01/22/18 06:12 Laboratory Results - last 24 hr 01/21/18 01/21/18 01/21/18 04:39 08:26 15:36 WBC RBC Hgb Hct MCV MCH MCHC RDW Plt Count MPV Prelim Diff (Auto) Neut % (Auto) Lymph % (Auto) [place] % (Auto) Eos % (Auto) Baso % (Auto) Neut # (Auto) Lymph # (Auto) [place] # (Auto) Eos # (Auto) Baso # (Auto) WBC Differential . Diff Scan Auto diff confirmed Differential Comment Toxic Granulation 2+ H Platelet Estimate Normal Platelet Morphology Enlarged H Ovalocytes 1+ H Sodium Potassium Chloride Carbon Dioxide Anion Gap BUN Creatinine Estimated GFR POC Glucose 196 H 180 H Random Glucose Calcium 01/21/18 01/22/18 01/22/18 20:52 04:20 06:12 WBC 11.0 RBC 2.57 L Hgb 7.9 L Hct 24.2 L MCV 94.1 MCH 30.7 MCHC 32.6 RDW 20.8 H Plt Count 294 MPV 10.6 Prelim Diff (Auto) Slide review pending Neut % (Auto) 70.5 H Lymph % (Auto) 21.4 [place] % (Auto) 4.4 Eos % (Auto) 2.8 Baso % (Auto) 0.9 Neut # (Auto) 7.7 Lymph # (Auto) 2.4 [place] # (Auto) 0.5 Eos # (Auto) 0.3 Baso # (Auto) 0.1 WBC Differential Diff Scan Differential Comment . Toxic Granulation Platelet Estimate Platelet Morphology Ovalocytes Sodium Potassium Chloride Carbon Dioxide Anion Gap BUN Creatinine Estimated GFR POC Glucose 192 H 156 H Random Glucose Calcium 01/22/18 06:12 WBC RBC Hgb Hct MCV MCH MCHC RDW Plt Count MPV Prelim Diff (Auto) Neut % (Auto) Lymph % (Auto) [place] % (Auto) Eos % (Auto) Baso % (Auto) Neut # (Auto) Lymph # (Auto) [place] # (Auto) Eos # (Auto) Baso # (Auto) WBC Differential Diff Scan Differential Comment Toxic Granulation Platelet Estimate Platelet Morphology Ovalocytes Sodium 139 Potassium 5.4 H Chloride 112 H Carbon Dioxide 20.1 L Anion Gap 7 BUN 26 H Creatinine 0.65 Estimated GFR Greater than 89 POC Glucose Random Glucose 133 H Calcium 8.1 L - Imaging Imaging: ITS Impressions Femur X-Ray 12/15/17 07:05 CONCLUSION: No fracture is identified. There is extensive soft tissue air in the right gluteal region and extending into the proximal and mid posterior thigh. The soft tissue air suggests an open wound. Pelvis X-Ray 12/15/17 07:05 CONCLUSION: No fracture is identified. However, there is extensive soft tissue air in the left gluteal region and left proximal thigh. Pelvis CT 12/15/17 07:52 CONCLUSION: 1. No fracture is identified. 2. Extensive subcutaneous and soft tissue gas bilaterally, left greater than right. It is most severe in the left gluteal region and extends into the proximal posterior thigh. The soft tissue air dissects through the gluteal musculature. There is adjacent subcutaneous edema. Foot X-Ray 12/18/17 00:00 CONCLUSION: Remote small avulsion fracture at the fifth toe. No acute bony abnormality. Venous Doppler Study 12/22/17 00:00 CONCLUSION: Extensive deep vein thrombosis of the left upper extremity. Abdomen X-Ray 01/19/18 21:06 CONCLUSION: 1. Feeding type Dobbhoff tube in the mid stomach. 2. Mild gaseous distention of the stomach. Chest X-Ray 01/21/18 00:00 CONCLUSION: 1. Feeding tube distal tip is in the gastric fundus. 2. Otherwise, stable examination with suspected small left pleural effusion and bilateral atelectasis versus consolidation at the lung bases. Assessment and Plan - Assessment (1) Fasciitis Code(s): M72.9 - Fibroblastic disorder, unspecified Status: Acute Plan: - Plan nec fasc of back, buttock, multiple debridements off pressors PLAN Tube feeds will discuss with plastic for possible grafting vac change this week, possible vac removal soon and transition to wet to dry abx
[2018-01-22 07:59] LABS: Eosinophils 2 % (0-4); Lymphocytes 18 % (9-44); Monocytes 7 % (0-8); Myelocytes 3 % (0-0); Ovalocytes 1+; Stomatocytes 1+; Toxic Granulation 1+
[2018-01-22 08:00] LABS: Platelet Estimate Normal (Normal)
[2018-01-22] MEDS: Chlorhexidine 0.12% Oral Kit 15 ML UDC OROPHARYNG SCH ×2 (08:00→22:35)
--- NOTE | 2018-01-22 08:56 | P.PN ---
Subjective Interval history: Follow-up sepsis and necrotizing fasciitis. No complaints. Per nursing, minimal trach secretions. Urine output 350 mL. Tolerating trach collar. Discussed with general surgery, no further debridement at this time pending plastic surgery evaluation Physical Exam Vital signs: Vital Signs 01/21/18 09:00 01/21/18 10:42 01/21/18 10:45 Temperature 97.5 F L 97.5 F L Pulse Rate 77 84 86 Respiratory Rate 24 22 20 Blood Pressure 132/69 133/84 124/79 Pulse Oximetry 100 98 97 01/21/18 11:00 01/21/18 11:29 01/21/18 11:45 Temperature 97.5 F L Pulse Rate 87 85 87 Respiratory Rate 24 25 H 30 H Blood Pressure 126/71 118/62 115/61 Pulse Oximetry 99 99 01/21/18 12:00 01/21/18 12:30 01/21/18 13:00 Temperature 97.9 F Pulse Rate 88 84 81 Respiratory Rate 22 28 H 26 H Blood Pressure 113/57 L 121/56 L 115/65 Pulse Oximetry 100 100 100 01/21/18 14:00 01/21/18 14:30 01/21/18 15:00 Temperature Pulse Rate 89 78 79 Respiratory Rate 25 H 20 18 Blood Pressure 117/59 L 114/62 110/59 L Pulse Oximetry 100 100 100 01/21/18 15:30 01/21/18 16:00 01/21/18 19:00 Temperature 98.5 F Pulse Rate 85 76 89 Respiratory Rate 19 18 24 Blood Pressure 125/60 121/60 127/66 Pulse Oximetry 100 100 100 01/21/18 20:00 01/21/18 21:46 01/21/18 22:00 Temperature 98.5 F Pulse Rate 93 H 75 Respiratory Rate 24 21 21 Blood Pressure 131/71 116/66 Pulse Oximetry 100 100 01/21/18 22:45 01/21/18 23:00 01/22/18 00:00 Temperature 98.2 F Pulse Rate 75 70 Respiratory Rate 21 22 19 Blood Pressure 122/69 114/66 Pulse Oximetry 100 100 01/22/18 01:00 01/22/18 02:00 01/22/18 02:27 Temperature Pulse Rate 80 83 Respiratory Rate 23 20 Blood Pressure 130/63 127/72 Pulse Oximetry 100 100 100 01/22/18 04:00 01/22/18 05:00 01/22/18 06:00 Temperature 98.4 F Pulse Rate 84 81 91 H Respiratory Rate 21 23 23 Blood Pressure 112/61 112/65 Pulse Oximetry 100 100 99 Intake & Output 01/21/18 01/22/18 01/22/18 18:59 06:59 18:59 Intake Total 2283 / 2283 1626 / 1626 Output Total 1190 / 1190 1350 / 1350 Balance 1093 / 1093 276 / 276 Weight 66.2 kg Intake: IV 1150 / 1150 1250 / 1250 Potassium Chlor 20 mEq/NACL 0. 1000 / 1000 1000 / 1000 45% Inj 1,000 ML @ 84 mls/hr IV .CONT .[id number] RICARDO Rx#:[id number] Diflucan 200 mg Premix Bag 100 100 / 100 100 / 100 ML @ 100 mls/hr IV.SIG Q24H RICARDO Rx#:[id number] Zosyn 3.375 GM Premix 50 ML @ 50 / 50 150 / 150 100 mls/hr IV.SIG Q6H RICARDO Rx#: [id number] Tube Feeding 93 / 93 376 / 376 Water Bolus Amount 540 / 540 Anesthesia Amount 500 / 500 Output: Stool 50 / 50 Urine/Stool Mix 800 / 800 Estimated Blood Loss 15 / 15 Urine Amount (Catheter) 675 / 675 550 / 550 Indwelling Urethral Catheter 675 / 675 550 / 550 Wound Vac Amount 450 / 450 Posterior Sacrum 450 / 450 Other: Mode Setting Posterior Sacrum Continuous Continuous Date of Last Bowel Movement 01/21/18 01/22/18 Narrative: General: Cachectic middle-aged woman, on T-piece via tracheostomy. Lungs: Supplemental oxygen through tracheostomy. Good bilateral breath sounds, clear. Acceptable cough effort Heart: RRR. Normal S1-S2, no JVD. Abdomen: Soft, no guarding, nondistended, nontender, bowel sounds active Back: Wound VAC remains in place over lower bilateral lumbar region. Surrounding skin is mildly erythematous. Musculoskeletal: Warm, well perfused, status post below-knee amputation right side, well-healed. Neurological: Awake and alert responding - Urinary Catheter Management Indwelling Urethral Catheter Cath placed during this visit: yes Reason for continuing: Acute urinary retention Insertion date: 01/13/18 Insertion time: 01:00 1 Cath placed during this visit: yes, but has since been removed by the nurse Urethral indwelling: Yes Reason for continuing: Severe pressure ulcer/wound Insertion date: 12/15/17 Removal date: 01/13/18 Removal time: 01:00 Results - Labs CBC & Chem 7: 01/22/18 06:12 01/22/18 06:12 Laboratory Results - last 24 hr 01/21/18 01/21/18 01/22/18 15:36 20:52 04:20 WBC RBC Hgb Hct MCV MCH MCHC RDW Plt Count MPV Prelim Diff (Auto) Neut % (Auto) Lymph % (Auto) [place] % (Auto) Eos % (Auto) Baso % (Auto) Neut # (Auto) Lymph # (Auto) [place] # (Auto) Eos # (Auto) Baso # (Auto) WBC Differential Seg Neuts % (Manual) Band Neuts % (Manual) Lymphocytes % (Manual) Monocytes % (Manual) Eosinophils % (Manual) Myelocytes % (Man) Abs Neuts (Manual) Differential Comment Toxic Granulation Platelet Estimate Platelet Morphology Basophilic Stippling Ovalocytes Stomatocytes Sodium Potassium Chloride Carbon Dioxide Anion Gap BUN Creatinine Estimated GFR POC Glucose 180 H 192 H 156 H Random Glucose Calcium 01/22/18 01/22/18 06:12 06:12 WBC 11.0 RBC 2.57 L Hgb 7.9 L Hct 24.2 L MCV 94.1 MCH 30.7 MCHC 32.6 RDW 20.8 H Plt Count 294 MPV 10.6 Prelim Diff (Auto) Slide review pending Neut % (Auto) 70.5 H Lymph % (Auto) 21.4 [place] % (Auto) 4.4 Eos % (Auto) 2.8 Baso % (Auto) 0.9 Neut # (Auto) 7.7 Lymph # (Auto) 2.4 [place] # (Auto) 0.5 Eos # (Auto) 0.3 Baso # (Auto) 0.1 WBC Differential Manual diff final Seg Neuts % (Manual) 67 Band Neuts % (Manual) 3 Lymphocytes % (Manual) 18 Monocytes % (Manual) 7 Eosinophils % (Manual) 2 Myelocytes % (Man) 3 H Abs Neuts (Manual) 8.0 H Differential Comment . Toxic Granulation 1+ H Platelet Estimate Normal Platelet Morphology Enlarged H Basophilic Stippling Faint H Ovalocytes 1+ H Stomatocytes 1+ H Sodium 139 Potassium 5.4 H Chloride 112 H Carbon Dioxide 20.1 L Anion Gap 7 BUN 26 H Creatinine 0.65 Estimated GFR Greater than 89 POC Glucose Random Glucose 133 H Calcium 8.1 L - Imaging ITS Impressions Femur X-Ray 12/15/17 07:05 CONCLUSION: No fracture is identified. There is extensive soft tissue air in the right gluteal region and extending into the proximal and mid posterior thigh. The soft tissue air suggests an open wound. Pelvis X-Ray 12/15/17 07:05 CONCLUSION: No fracture is identified. However, there is extensive soft tissue air in the left gluteal region and left proximal thigh. Pelvis CT 12/15/17 07:52 CONCLUSION: 1. No fracture is identified. 2. Extensive subcutaneous and soft tissue gas bilaterally, left greater than right. It is most severe in the left gluteal region and extends into the proximal posterior thigh. The soft tissue air dissects through the gluteal musculature. There is adjacent subcutaneous edema. Foot X-Ray 12/18/17 00:00 CONCLUSION: Remote small avulsion fracture at the fifth toe. No acute bony abnormality. Venous Doppler Study 12/22/17 00:00 CONCLUSION: Extensive deep vein thrombosis of the left upper extremity. Abdomen X-Ray 01/19/18 21:06 CONCLUSION: 1. Feeding type Dobbhoff tube in the mid stomach. 2. Mild gaseous distention of the stomach. Chest X-Ray 01/21/18 00:00 CONCLUSION: 1. Feeding tube distal tip is in the gastric fundus. 2. Otherwise, stable examination with suspected small left pleural effusion and bilateral atelectasis versus consolidation at the lung bases. - Procedures lumbar wd debridement with wd vac Assessment and Plan - Assessment (1) MARIO (acute kidney injury) Code(s): N17.9 - Acute kidney failure, unspecified Status: Acute (2) Hypernatremia Code(s): E87.0 - Hyperosmolality and hypernatremia Status: Acute (3) Type 2 diabetes mellitus with hyperosmolar nonketotic hyperglycemia Code(s): E11.01 - Type 2 diabetes mellitus with hyperosmolarity with coma Status: Acute (4) Necrotizing fasciitis of pelvic region and thigh Code(s): M72.6 - Necrotizing fasciitis Status: Acute - Plan Neurological Acute metabolic encephalopathy Resolved Cardiovascular Septic Shock- improving Myocardial dysfunction secondary to septic shock Fluid overload Tapered levophed off Respiratory Acute hypoxic and hypercarbic respiratory failure- persistent - s/p Trach in OR 12/28/17. -Discontinue mechanical ventilation assist control mode. -Tolerating T-piece Endocrinology Diabetes Severe hyperglycemia. Improved - Med scale SSI. - Follow potassium and magnesium closely - Ongoing adjustments with basal insulin following episode of sepsis, requirements now declining Hematology/Infectious Disease Septic Shock Necrotizing soft tissue infection CAUTI, PSAE PNA, PSAE - Follow white count and platelet count closely. - Continue daptomycin and Zosyn. Diflucan for fungal coverage. - General surgery service following back wounds, scheduling debridement. Plastic for possible grafting vac change this week, possible vac removal soon and transition to wet to dry per general surgery GI Acute protein calorie malnutrition- severe - Tube feeds infusing, tolerated. As needed IV fluids - Follow prealbumin weekly - Dignishield placed to protect wounds from soilage. - Follow prealbumin weekly. - refused PEG (change NG every 14 days) Acute kidney injury with resolved Mild hyperkalemia - Tristan required for hourly urine output and to protect perineal region. - May ultimately require colostomy to protect this region. - CAUTI now. Cannot think of a solution to the problem of continuous wound soilage. Refused colostomy - Discontinue potassium supplementation repeat BMP in the morning HEME Left upper extremity DVT Anemia. Improved - DVT left internal jugular, subclavian, axillary and distal arm veins. - Cannot anticoagulate secondary to blood loss anemia requiring blood transfusion, frequent surgeries. - Arterial inflow into the left arm and hand is good. Prophylaxis - Pepcid for GI ulcer prophylaxis - SCDs for DVT prophylaxis - chemical DVT prophylaxis with Lovenox okayed by general surgery Lines: PIV Overall impression: This woman was initially critically ill and in septic shock with necrotizing fasciitis emanating from a deep chronic sacral decubitus ulcer. She has required multiple OR trips for I&D and VAC changes. Family request continued aggressive care. She had a recurrent bout of severe sepsis on 01/14 but after 2 debridements she is very much improved. Now on T-piece, hemodynamically stable, and ready to be transferred to the floor.
[2018-01-22] MEDS: Lactic Acid (Ammonium Lactate) 12% Lotion 225 GM Bottle TOPICAL SCH ×2 (09:00→22:36)
[2018-01-22] MEDS: Lisinopril 5 MG Tablet NG/OG SCH (09:21)
[2018-01-22] MEDS: Metoprolol Tartrate 50 MG Tablet NG/OG SCH ×2 (09:21→22:36)
[2018-01-22] MEDS: hydrALAZINE 50 MG Tablet NG/OG SCH ×3 (09:22→17:32)
[2018-01-22] MEDS: Lansoprazole ODT 15 MG Tablet NG/OG SCH (09:22)
[2018-01-22] MEDS: Senna/Docusate Sodium 8.6/50 MG Tablet NG/OG SCH ×2 (09:23→22:37)
[2018-01-22] MEDS: Insulin Detemir Inj 1,000 UNIT/10 ML Vial SQ SCH ×2 (10:30→22:36)
--- NOTE | 2018-01-22 12:14 | P.PNID ---
Subjective Remarks: Patient is more awake and alert. Says she feels okay. No fever. Denies chills. Sputum and urine culture have pseudomonas. This is a 52-year-old white female who was brought to the emergency department after she fell at home. The patient was noted to have profound weakness. She was evaluated in the emergency department and at that time had normal temperature and white blood cell count was also normal. She underwent CT scan of the abdomen and pelvis that showed extensive subcutaneous and soft tissue gas bilaterally with the left greater than right, most severe in the left gluteal region and extending into the proximal posterior thigh soft tissue and air-fluid dissecting through the gluteal musculature. Patient transferred to [facility] with respiratory distress, fever and altered mental status. Tachypneic with increased respiratory rate and tachycardic. Antibiotics: Diflucan. Piperacillin/tazobactam Flagyl Allergies/Adverse Reactions: Allergies No Known Allergies Allergy (Verified 12/15/17 07:54) Objective Vital Signs 01/21/18 12:30 01/21/18 13:00 01/21/18 14:00 Temperature Pulse Rate 84 81 89 Respiratory Rate 28 H 26 H 25 H Blood Pressure 121/56 L 115/65 117/59 L Pulse Oximetry 100 100 100 01/21/18 14:30 01/21/18 15:00 01/21/18 15:30 Temperature Pulse Rate 78 79 85 Respiratory Rate 20 18 19 Blood Pressure 114/62 110/59 L 125/60 Pulse Oximetry 100 100 100 01/21/18 16:00 01/21/18 19:00 01/21/18 20:00 Temperature 98.5 F 98.5 F Pulse Rate 76 89 93 H Respiratory Rate 18 24 24 Blood Pressure 121/60 127/66 131/71 Pulse Oximetry 100 100 100 01/21/18 21:46 01/21/18 22:00 01/21/18 22:45 Temperature Pulse Rate 75 Respiratory Rate 21 21 21 Blood Pressure 116/66 Pulse Oximetry 100 01/21/18 23:00 01/22/18 00:00 01/22/18 01:00 Temperature 98.2 F Pulse Rate 75 70 80 Respiratory Rate 22 19 23 Blood Pressure 122/69 114/66 130/63 Pulse Oximetry 100 100 100 01/22/18 02:00 01/22/18 02:27 01/22/18 04:00 Temperature 98.4 F Pulse Rate 83 84 Respiratory Rate 20 21 Blood Pressure 127/72 112/61 Pulse Oximetry 100 100 100 01/22/18 05:00 01/22/18 06:00 Temperature Pulse Rate 81 91 H Respiratory Rate 23 23 Blood Pressure 112/65 Pulse Oximetry 100 99 Intake & Output 01/21/18 01/22/18 01/22/18 18:59 06:59 18:59 Intake Total 2283 / 2283 1626 / 1626 Output Total 1190 / 1190 1350 / 1350 Balance 1093 / 1093 276 / 276 Weight 66.2 kg Intake: IV 1150 / 1150 1250 / 1250 Potassium Chlor 20 mEq/NACL 0. 1000 / 1000 1000 / 1000 45% Inj 1,000 ML @ 84 mls/hr IV .CONT .[id number] RICARDO Rx#:[id number] Diflucan 200 mg Premix Bag 100 100 / 100 100 / 100 ML @ 100 mls/hr IV.SIG Q24H RICARDO Rx#:[id number] Zosyn 3.375 GM Premix 50 ML @ 50 / 50 150 / 150 100 mls/hr IV.SIG Q6H RICARDO Rx#: [id number] Tube Feeding 93 / 93 376 / 376 Water Bolus Amount 540 / 540 Anesthesia Amount 500 / 500 Output: Stool 50 / 50 Urine/Stool Mix 800 / 800 Estimated Blood Loss 15 / 15 Urine Amount (Catheter) 675 / 675 550 / 550 Indwelling Urethral Catheter 675 / 675 550 / 550 Wound Vac Amount 450 / 450 Posterior Sacrum 450 / 450 Other: Mode Setting Posterior Sacrum Continuous Continuous Date of Last Bowel Movement 01/21/18 01/22/18 01/14/18 10:30 Blood - Peripheral Aerobic Blood Culture - Final No growth in 5 days 01/14/18 10:30 Blood - Peripheral Anaerobic Blood Culture - Final No growth in 5 days 01/14/18 10:35 Blood - Peripheral Aerobic Blood Culture - Final No growth in 5 days 01/14/18 10:35 Blood - Peripheral Anaerobic Blood Culture - Final No growth in 5 days Lab - Hematology Results 01/21/18 01/22/18 04:39 06:12 WBC 10.0 11.0 RBC 2.63 L 2.57 L Hgb 8.1 L 7.9 L Hct 25.2 L 24.2 L MCV 96.1 D 94.1 MCH 30.8 30.7 MCHC 32.0 32.6 RDW 21.4 H 20.8 H Plt Count 253 294 MPV 10.9 10.6 Prelim Diff (Auto) Slide review pending Slide review pending Neut % (Auto) 71.5 H 70.5 H Lymph % (Auto) 19.3 21.4 [place] % (Auto) 4.3 4.4 Eos % (Auto) 3.7 2.8 Baso % (Auto) 1.2 0.9 Neut # (Auto) 7.1 7.7 Lymph # (Auto) 1.9 2.4 [place] # (Auto) 0.4 0.5 Eos # (Auto) 0.4 0.3 Baso # (Auto) 0.1 0.1 WBC Differential . Manual diff final Diff Scan Auto diff confirmed Seg Neuts % (Manual) 67 Band Neuts % (Manual) 3 Lymphocytes % (Manual) 18 Monocytes % (Manual) 7 Eosinophils % (Manual) 2 Myelocytes % (Man) 3 H Abs Neuts (Manual) 8.0 H Differential Comment . . Toxic Granulation 2+ H 1+ H Platelet Estimate Normal Normal Platelet Morphology Enlarged H Enlarged H Basophilic Stippling Faint H Ovalocytes 1+ H 1+ H Stomatocytes 1+ H Hematology Comments Lab - Chemistry Results 01/20/18 01/20/18 01/20/18 15:56 19:46 23:37 Sodium Potassium Chloride Carbon Dioxide Anion Gap BUN Creatinine Estimated GFR POC Glucose 192 H 198 H 198 H Random Glucose Calcium Phosphorus Magnesium 01/21/18 01/21/18 01/21/18 03:46 04:39 08:26 Sodium 141 Potassium 4.7 Chloride 113 H Carbon Dioxide 20.0 L Anion Gap 8 BUN 23 H Creatinine 0.61 Estimated GFR Greater than 89 POC Glucose 170 H 196 H Random Glucose 176 H Calcium 8.0 L Phosphorus 2.5 Magnesium 2.2 01/21/18 01/21/18 01/22/18 15:36 20:52 04:20 Sodium Potassium Chloride Carbon Dioxide Anion Gap BUN Creatinine Estimated GFR POC Glucose 180 H 192 H 156 H Random Glucose Calcium Phosphorus Magnesium 01/22/18 06:12 Sodium 139 Potassium 5.4 H Chloride 112 H Carbon Dioxide 20.1 L Anion Gap 7 BUN 26 H Creatinine 0.65 Estimated GFR Greater than 89 POC Glucose Random Glucose 133 H Calcium 8.1 L Phosphorus Magnesium Imaging: ITS Impressions Femur X-Ray 12/15/17 07:05 CONCLUSION: No fracture is identified. There is extensive soft tissue air in the right gluteal region and extending into the proximal and mid posterior thigh. The soft tissue air suggests an open wound. Pelvis X-Ray 12/15/17 07:05 CONCLUSION: No fracture is identified. However, there is extensive soft tissue air in the left gluteal region and left proximal thigh. Pelvis CT 12/15/17 07:52 CONCLUSION: 1. No fracture is identified. 2. Extensive subcutaneous and soft tissue gas bilaterally, left greater than right. It is most severe in the left gluteal region and extends into the proximal posterior thigh. The soft tissue air dissects through the gluteal musculature. There is adjacent subcutaneous edema. Foot X-Ray 12/18/17 00:00 CONCLUSION: Remote small avulsion fracture at the fifth toe. No acute bony abnormality. Venous Doppler Study 12/22/17 00:00 CONCLUSION: Extensive deep vein thrombosis of the left upper extremity. Abdomen X-Ray 01/19/18 21:06 CONCLUSION: 1. Feeding type Dobbhoff tube in the mid stomach. 2. Mild gaseous distention of the stomach. Chest X-Ray 01/21/18 00:00 CONCLUSION: 1. Feeding tube distal tip is in the gastric fundus. 2. Otherwise, stable examination with suspected small left pleural effusion and bilateral atelectasis versus consolidation at the lung bases. Physical Exam: PHYSICAL EXAMINATION: GENERAL: Awake. No distress. HEENT: Pale sclera. No icterus. NECK: Supple. No adenopathy or swelling. LUNGS: Decreased breath sounds. Good air movement. Very little rhonchi. HEART: irregular S1 and S2. 1-2/6 systolic murmur at the left sternal border. ABDOMEN: Bowel sounds present, soft. BACK: Surgical wound post debridement across the lower back, buttock and thigh. Vac in place. EXTREMITIES: No clubbing, no cyanosis or edema. abrasion with dry necrotic changes at left dorsal toes 2-4. SKIN: No diffuse rash. Scattered ecchymotic lesions. NEUROLOGIC: Unable to assess. PSYCHIATRIC: Calm. Assessment and Plan - Plan IMPRESSION: 1. Necrotizing fasciitis of the back, buttock and thigh. Talia albicans and Talia tropicalis. 2. Septic shock. Responded to broad-spectrum antibiotics. 3. Acute respiratory failure. 4. Chronic kidney disease. 5. Leukocytosis. Improved. 6. UTI - pseudomonas. 7. New episode of sepsis. Improved. 8. PNA - pseudomonas. Probable aspiration. Looks stable. RECOMMENDATIONS: 1. Continue Diflucan. 2. Continue Flagyl p.o. empiric anaerobic coverage. 3. Continue Zosyn for Pseudomonas pneumonia/UTI. 4. Monitor the clinical status.
[2018-01-22] MEDS: hydrALAZINE HCl Inj 20 MG/ML Vial IV.PUSH PRN (14:11)
[2018-01-22] MEDS: Collagenase Oint 30 GM Tube TOPICAL SCH (15:09)
[2018-01-22] MEDS: Enoxaparin Inj 30 MG/0.3 ML Syringe SQ SCH (17:32)
[2018-01-23] MEDS: Oral Hygiene Kit OROPHARYNG SCH ×4 (00:56→16:00)
[2018-01-23] MEDS: Piperacil/Tazo 3.375 GM Premix 50 ML IV.SIG SCH ×4 (00:56→21:18)
[2018-01-23] MEDS: Insulin NovoLIN Regular Correctional Sugar Inj SQ SCH ×4 (04:51→20:40)
[2018-01-23 05:32] LABS: Baso # (Auto) 0.1 th/mm3 (0.0-0.2); Baso % (Auto) 1.2 % (0.0-2.0); Eos # (Auto) 0.3 th/mm3 (0.0-0.4); Eos % (Auto) 3.5 % (0.0-4.0); Hematocrit 25.5 % (35.0-46.0); Lymph # (Auto) 2.1 th/mm3 (1.0-4.8); Lymph % (Auto) 23.6 % (9.0-44.0); Mean Corpuscular HGB Conc 31.4 % (32.0-36.0); Mean Corpuscular Hemoglobin 30.9 pg (27.0-34.0); Mean Corpuscular Volume 98.4 fL (80.0-100.0); Mean Platelet Volume 10.3 fL (7.0-11.0); Mono # (Auto) 0.4 th/mm3 (0.0-0.9); Mono % (Auto) 4.4 % (0.0-8.0); Neut # (Auto) 6.1 th/mm3 (1.8-7.7); Neut % (Auto) 67.3 % (16.0-70.0); Platelet Count 285 th/mm3 (150-450); Red Blood Count 2.59 mil/mm3 (4.00-5.30)
[2018-01-23] MEDS: metroNIDAZOLE 500 MG Tablet NG/OG SCH (05:36)
[2018-01-23] MEDS: hydrALAZINE HCl Inj 20 MG/ML Vial IV.PUSH PRN (05:36)
[2018-01-23 05:45] LABS: Anion Gap 9 meq/L (5-15); Blood Urea Nitrogen 35 mg/dL (7-18); Calcium 8.1 mg/dL (8.5-10.1); Carbon Dioxide 15.1 meq/L (21.0-32.0); Chloride 112 meq/L (98-107); Glomerular Filtration Rate Greater Than 89 mL/min (>89); Glucose,Random 106 mg/dL (74-106); Magnesium 2.3 mg/dL (1.5-2.5); Phosphorus 3.1 mg/dL (2.5-4.9); Potassium 5.5 meq/L (3.5-5.1); Sodium 136 meq/L (136-145)
[2018-01-23 07:41] LABS: Eosinophils 5 % (0-4); Lymphocytes 32 % (9-44); Metamyelocytes 1 % (0-1); Monocytes 5 % (0-8); Platelet Estimate Normal (Normal); Platelet Morphology Normal (Normal); Tallied Nucleated RBC 1 (0-0)
[2018-01-23] MEDS: Chlorhexidine 0.12% Oral Kit 15 ML UDC OROPHARYNG SCH ×2 (09:18→20:29)
[2018-01-23] MEDS: Insulin Detemir Inj 1,000 UNIT/10 ML Vial SQ SCH ×2 (09:18→20:41)
[2018-01-23] MEDS: Metoprolol Tartrate 50 MG Tablet NG/OG SCH ×2 (09:19→20:25)
[2018-01-23] MEDS: Lisinopril 5 MG Tablet NG/OG SCH (09:19)
[2018-01-23] MEDS: hydrALAZINE 50 MG Tablet NG/OG SCH ×3 (09:19→18:15)
[2018-01-23] MEDS: Senna/Docusate Sodium 8.6/50 MG Tablet NG/OG SCH ×2 (09:21→20:26)
[2018-01-23] MEDS: Lansoprazole ODT 15 MG Tablet NG/OG SCH (09:21)
[2018-01-23] MEDS: Lactic Acid (Ammonium Lactate) 12% Lotion 225 GM Bottle TOPICAL SCH ×2 (09:22→20:34)
[2018-01-23] MEDS: Collagenase Oint 30 GM Tube TOPICAL SCH (09:25)
--- NOTE | 2018-01-23 10:14 | P.PNGS ---
Subjective Interval history: Resting in bed Eyes closed Physical Exam Vital signs: Vital Signs 01/22/18 11:00 01/22/18 12:00 01/22/18 13:00 Temperature 98.2 F Pulse Rate 87 82 86 Respiratory Rate 19 20 18 Blood Pressure 161/72 H 166/77 H 165/80 H Pulse Oximetry 99 100 100 01/22/18 14:00 01/22/18 15:00 01/22/18 16:00 Temperature 98.5 F Pulse Rate 81 88 91 H Respiratory Rate 21 20 20 Blood Pressure 175/83 H 152/68 H 148/67 H Pulse Oximetry 100 100 100 01/22/18 17:00 01/22/18 18:00 01/22/18 18:50 Temperature Pulse Rate 93 H 90 93 H Respiratory Rate 21 21 23 Blood Pressure 148/68 H 148/68 H 151/104 H Pulse Oximetry 100 100 100 01/22/18 18:55 01/22/18 19:00 01/22/18 19:50 Temperature Pulse Rate 92 H 92 H 96 H Respiratory Rate 23 23 23 Blood Pressure 139/66 146/67 H Pulse Oximetry 100 100 100 01/22/18 20:00 01/22/18 20:50 01/22/18 21:00 Temperature 98.5 F Pulse Rate 90 95 H 90 Respiratory Rate 20 24 21 Blood Pressure 139/67 Pulse Oximetry 100 100 100 01/22/18 21:24 01/22/18 21:50 01/22/18 22:00 Temperature Pulse Rate 93 H 93 H Respiratory Rate 23 23 Blood Pressure 141/66 H Pulse Oximetry 100 100 100 01/22/18 22:50 01/22/18 23:00 01/22/18 23:50 Temperature Pulse Rate 95 H 94 H 79 Respiratory Rate 28 H 29 H 21 Blood Pressure 143/74 H 146/77 H Pulse Oximetry 100 100 100 01/23/18 00:00 01/23/18 00:50 01/23/18 01:00 Temperature 98.6 F Pulse Rate 78 80 84 Respiratory Rate 21 24 27 H Blood Pressure 149/71 H Pulse Oximetry 100 100 100 01/23/18 01:50 01/23/18 02:00 01/23/18 02:50 Temperature Pulse Rate 83 86 82 Respiratory Rate 22 19 20 Blood Pressure 142/68 H 135/77 Pulse Oximetry 100 100 100 01/23/18 03:00 01/23/18 03:50 01/23/18 04:00 Temperature 98.7 F Pulse Rate 85 81 87 Respiratory Rate 17 21 19 Blood Pressure 143/69 H Pulse Oximetry 100 100 100 01/23/18 04:50 01/23/18 05:00 01/23/18 05:31 Temperature Pulse Rate 83 79 78 Respiratory Rate 25 H 21 24 Blood Pressure 170/85 H 163/77 H Pulse Oximetry 100 100 100 01/23/18 05:50 01/23/18 06:00 Temperature Pulse Rate 84 80 Respiratory Rate 25 H 22 Blood Pressure 159/74 H Pulse Oximetry 100 100 Intake & Output 01/22/18 01/23/18 01/23/18 18:59 06:59 18:59 Intake Total 1167 / 1167 1297 / 1297 50 / 50 Output Total 1750 / 1750 2510 / 2510 Balance -583 / -583 -1213 / -1213 50 / 50 Weight 61.5 kg Intake: IV 300 / 300 50 / 50 50 / 50 Diflucan 200 mg Premix Bag 100 200 / 200 ML @ 100 mls/hr IV.SIG Q24H [facility] Rx#:[id number] Zosyn 3.375 GM Premix 50 ML @ 100 / 100 50 / 50 50 / 50 100 mls/hr IV.SIG Q6H [facility] Rx#: [id number] Tube Feeding 707 / 707 647 / 647 Tube Irrigant 160 / 160 Water Bolus Amount 600 / 600 Output: Stool 700 / 700 1500 / 1500 Urine Amount (Catheter) 1000 / 1000 900 / 900 Indwelling Urethral Catheter 1000 / 1000 900 / 900 Wound Vac Amount 50 / 50 110 / 110 Posterior Sacrum 50 / 50 110 / 110 Other: Mode Setting Posterior Sacrum Continuous Continuous Date of Last Bowel Movement 01/22/18 01/22/18 Narrative: Sleeping Wound vac in place with good seal---no leaks - Urinary Catheter Management Indwelling Urethral Catheter Cath placed during this visit: yes Reason for continuing: Acute urinary retention Insertion date: 01/13/18 Insertion time: 01:00 1 Cath placed during this visit: yes, but has since been removed by the nurse Urethral indwelling: Yes Reason for continuing: Severe pressure ulcer/wound Insertion date: 12/15/17 Removal date: 01/13/18 Removal time: 01:00 Results - Labs 02/06/18 06:43 02/06/18 06:43 Laboratory Results - last 24 hr 01/22/18 01/22/18 01/22/18 14:13 15:48 22:09 WBC RBC Hgb Hct MCV MCH MCHC RDW Plt Count MPV Prelim Diff (Auto) Neut % (Auto) Lymph % (Auto) Upson % (Auto) Eos % (Auto) Baso % (Auto) Neut # (Auto) Lymph # (Auto) Upson # (Auto) Eos # (Auto) Baso # (Auto) WBC Differential Seg Neuts % (Manual) Band Neuts % (Manual) Lymphocytes % (Manual) Monocytes % (Manual) Eosinophils % (Manual) Metamyelocytes % (Man) Abs Neuts (Manual) Nucleated RBCs/100 WBC Differential Comment Platelet Estimate Platelet Morphology Hematology Comments Sodium Potassium Chloride Carbon Dioxide Anion Gap BUN Creatinine Estimated GFR POC Glucose 138 H 153 H 79 Random Glucose Calcium Phosphorus Magnesium 01/23/18 01/23/18 01/23/18 00:45 03:53 04:59 WBC 9.0 RBC 2.59 L Hgb 8.0 L Hct 25.5 L MCV 98.4 D MCH 30.9 MCHC 31.4 L RDW 22.0 H Plt Count 285 MPV 10.3 Prelim Diff (Auto) Slide review pending Neut % (Auto) 67.3 Lymph % (Auto) 23.6 Upson % (Auto) 4.4 Eos % (Auto) 3.5 Baso % (Auto) 1.2 Neut # (Auto) 6.1 Lymph # (Auto) 2.1 Upson # (Auto) 0.4 Eos # (Auto) 0.3 Baso # (Auto) 0.1 WBC Differential Manual diff final Seg Neuts % (Manual) 52 Band Neuts % (Manual) 5 Lymphocytes % (Manual) 32 Monocytes % (Manual) 5 Eosinophils % (Manual) 5 H Metamyelocytes % (Man) 1 Abs Neuts (Manual) 5.2 Nucleated RBCs/100 WBC 1 H Differential Comment . Platelet Estimate Normal Platelet Morphology Normal Hematology Comments Sodium Potassium Chloride Carbon Dioxide Anion Gap BUN Creatinine Estimated GFR POC Glucose 74 117 H Random Glucose Calcium Phosphorus Magnesium 01/23/18 01/23/18 04:59 09:33 WBC RBC Hgb Hct MCV MCH MCHC RDW Plt Count MPV Prelim Diff (Auto) Neut % (Auto) Lymph % (Auto) Upson % (Auto) Eos % (Auto) Baso % (Auto) Neut # (Auto) Lymph # (Auto) Upson # (Auto) Eos # (Auto) Baso # (Auto) WBC Differential Seg Neuts % (Manual) Band Neuts % (Manual) Lymphocytes % (Manual) Monocytes % (Manual) Eosinophils % (Manual) Metamyelocytes % (Man) Abs Neuts (Manual) Nucleated RBCs/100 WBC Differential Comment Platelet Estimate Platelet Morphology Hematology Comments Sodium 136 Potassium 5.5 H Chloride 112 H Carbon Dioxide 15.1 L Anion Gap 9 BUN 35 H Creatinine 0.66 Estimated GFR Greater than 89 POC Glucose 125 H Random Glucose 106 Calcium 8.1 L Phosphorus 3.1 Magnesium 2.3 - Imaging Imaging: ITS Impressions Femur X-Ray 12/15/17 07:05 CONCLUSION: No fracture is identified. There is extensive soft tissue air in the right gluteal region and extending into the proximal and mid posterior thigh. The soft tissue air suggests an open wound. Pelvis X-Ray 12/15/17 07:05 CONCLUSION: No fracture is identified. However, there is extensive soft tissue air in the left gluteal region and left proximal thigh. Pelvis CT 12/15/17 07:52 CONCLUSION: 1. No fracture is identified. 2. Extensive subcutaneous and soft tissue gas bilaterally, left greater than right. It is most severe in the left gluteal region and extends into the proximal posterior thigh. The soft tissue air dissects through the gluteal musculature. There is adjacent subcutaneous edema. Foot X-Ray 12/18/17 00:00 CONCLUSION: Remote small avulsion fracture at the fifth toe. No acute bony abnormality. Venous Doppler Study 12/22/17 00:00 CONCLUSION: Extensive deep vein thrombosis of the left upper extremity. Abdomen X-Ray 01/19/18 21:06 CONCLUSION: 1. Feeding type Dobbhoff tube in the mid stomach. 2. Mild gaseous distention of the stomach. Chest X-Ray 01/21/18 00:00 CONCLUSION: 1. Feeding tube distal tip is in the gastric fundus. 2. Otherwise, stable examination with suspected small left pleural effusion and bilateral atelectasis versus consolidation at the lung bases. Assessment and Plan - Assessment (1) Fasciitis Code(s): M72.9 - Fibroblastic disorder, unspecified Status: Acute Plan: 52 year old female with wound on back, buttocks and bilateral thighs -Continue care -Plastic following -Wound Care following - Attending Attestation continue wound care plastics input The exam, history, and the medical decision-making described in the above note were completed with the assistance of the mid-level provider. I reviewed and agree with the findings presented. I attest that I had a [id number] encounter with the patient on the same day, and personally performed and documented my assessment and findings in the medical record.
--- NOTE | 2018-01-23 11:32 | P.PNID ---
Subjective Remarks: Patient keeps her eyes closed but is alert when aroused. No complaints. No fever. Sputum and urine culture have pseudomonas 01/14/2018. This is a 52-year-old white female who was brought to the emergency department after she fell at home. The patient was noted to have profound weakness. She was evaluated in the emergency department and at that time had normal temperature and white blood cell count was also normal. She underwent CT scan of the abdomen and pelvis that showed extensive subcutaneous and soft tissue gas bilaterally with the left greater than right, most severe in the left gluteal region and extending into the proximal posterior thigh soft tissue and air-fluid dissecting through the gluteal musculature. Post multiple debridement and Vac changes. Patient transferred to [facility] with respiratory distress, fever and altered mental status. Tachypneic with increased respiratory rate and tachycardic. Antibiotics: Diflucan. Piperacillin/tazobactam Flagyl Allergies/Adverse Reactions: Allergies No Known Allergies Allergy (Verified 12/15/17 07:54) Objective Vital Signs 01/22/18 12:00 01/22/18 13:00 01/22/18 14:00 Temperature 98.2 F Pulse Rate 82 86 81 Respiratory Rate 20 18 21 Blood Pressure 166/77 H 165/80 H 175/83 H Pulse Oximetry 100 100 100 01/22/18 15:00 01/22/18 16:00 01/22/18 17:00 Temperature 98.5 F Pulse Rate 88 91 H 93 H Respiratory Rate 20 20 21 Blood Pressure 152/68 H 148/67 H 148/68 H Pulse Oximetry 100 100 100 01/22/18 18:00 01/22/18 18:50 01/22/18 18:55 Temperature Pulse Rate 90 93 H 92 H Respiratory Rate 21 23 23 Blood Pressure 148/68 H 151/104 H 139/66 Pulse Oximetry 100 100 100 01/22/18 19:00 01/22/18 19:50 01/22/18 20:00 Temperature 98.5 F Pulse Rate 92 H 96 H 90 Respiratory Rate 23 23 20 Blood Pressure 146/67 H Pulse Oximetry 100 100 100 01/22/18 20:50 01/22/18 21:00 01/22/18 21:24 Temperature Pulse Rate 95 H 90 Respiratory Rate 24 21 Blood Pressure 139/67 Pulse Oximetry 100 100 100 01/22/18 21:50 01/22/18 22:00 12/04/18 22:50 Temperature Pulse Rate 93 H 93 H 95 H Respiratory Rate 23 23 28 H Blood Pressure 141/66 H 143/74 H Pulse Oximetry 100 100 100 01/22/18 23:00 01/22/18 23:50 01/23/18 00:00 Temperature 98.6 F Pulse Rate 94 H 79 78 Respiratory Rate 29 H 21 21 Blood Pressure 146/77 H Pulse Oximetry 100 100 100 01/23/18 00:50 01/23/18 01:00 01/23/18 01:50 Temperature Pulse Rate 80 84 83 Respiratory Rate 24 27 H 22 Blood Pressure 149/71 H 142/68 H Pulse Oximetry 100 100 100 01/23/18 02:00 01/23/18 02:50 01/23/18 03:00 Temperature Pulse Rate 86 82 85 Respiratory Rate 19 20 17 Blood Pressure 135/77 Pulse Oximetry 100 100 100 01/23/18 03:50 01/23/18 04:00 01/23/18 04:50 Temperature 98.7 F Pulse Rate 81 87 83 Respiratory Rate 21 19 25 H Blood Pressure 143/69 H 170/85 H Pulse Oximetry 100 100 100 01/23/18 05:00 01/23/18 05:31 01/23/18 05:50 Temperature Pulse Rate 79 78 84 Respiratory Rate 21 24 25 H Blood Pressure 163/77 H 159/74 H Pulse Oximetry 100 100 100 01/23/18 06:00 01/23/18 07:00 01/23/18 07:50 Temperature Pulse Rate 80 78 86 Respiratory Rate 22 22 24 Blood Pressure 145/69 H Pulse Oximetry 100 96 97 01/23/18 08:00 01/23/18 08:50 01/23/18 09:00 Temperature 98.3 F Pulse Rate 86 87 87 Respiratory Rate 22 22 23 Blood Pressure 154/71 H Pulse Oximetry 98 98 98 01/23/18 09:50 01/23/18 10:00 Temperature Pulse Rate 90 91 H Respiratory Rate 26 H 29 H Blood Pressure 140/68 Pulse Oximetry 98 98 Intake & Output 01/22/18 01/23/18 01/23/18 18:59 06:59 18:59 Intake Total 1167 / 1167 1297 / 1297 50 / 50 Output Total 1750 / 1750 2510 / 2510 Balance -583 / -583 -1213 / -1213 50 / 50 Weight 61.5 kg Intake: IV 300 / 300 50 / 50 50 / 50 Diflucan 200 mg Premix Bag 100 200 / 200 ML @ 100 mls/hr IV.SIG Q24H [facility] Rx#:[id number] Zosyn 3.375 GM Premix 50 ML @ 100 / 100 50 / 50 50 / 50 100 mls/hr IV.SIG Q6H [facility] Rx#: [id number] Tube Feeding 707 / 707 647 / 647 Tube Irrigant 160 / 160 Water Bolus Amount 600 / 600 Output: Stool 700 / 700 1500 / 1500 Urine Amount (Catheter) 1000 / 1000 900 / 900 Indwelling Urethral Catheter 1000 / 1000 900 / 900 Wound Vac Amount 50 / 50 110 / 110 Posterior Sacrum 50 / 50 110 / 110 Other: Mode Setting Posterior Sacrum Continuous Continuous Date of Last Bowel Movement 01/22/18 01/22/18 12/24/17 12:20 Tissue - Buttock Acid Fast Bacilli Smear - Final No acid fast bacilli seen 12/24/17 12:20 Tissue - Buttock Mycobacterial Culture - Preliminary No growth in 4 weeks Lab - Hematology Results 01/22/18 01/23/18 06:12 04:59 WBC 11.0 9.0 RBC 2.57 L 2.59 L Hgb 7.9 L 8.0 L Hct 24.2 L 25.5 L MCV 94.1 98.4 D MCH 30.7 30.9 MCHC 32.6 31.4 L RDW 20.8 H 22.0 H Plt Count 294 285 MPV 10.6 10.3 Prelim Diff (Auto) Slide review pending Slide review pending Neut % (Auto) 70.5 H 67.3 Lymph % (Auto) 21.4 23.6 Kay % (Auto) 4.4 4.4 Eos % (Auto) 2.8 3.5 Baso % (Auto) 0.9 1.2 Neut # (Auto) 7.7 6.1 Lymph # (Auto) 2.4 2.1 Kay # (Auto) 0.5 0.4 Eos # (Auto) 0.3 0.3 Baso # (Auto) 0.1 0.1 WBC Differential Manual diff final Manual diff final Seg Neuts % (Manual) 67 52 Band Neuts % (Manual) 3 5 Lymphocytes % (Manual) 18 32 Monocytes % (Manual) 7 5 Eosinophils % (Manual) 2 5 H Metamyelocytes % (Man) 1 Myelocytes % (Man) 3 H Abs Neuts (Manual) 8.0 H 5.2 Nucleated RBCs/100 WBC 1 H Differential Comment . . Toxic Granulation 1+ H Platelet Estimate Normal Normal Platelet Morphology Enlarged H Normal Basophilic Stippling Faint H Ovalocytes 1+ H Stomatocytes 1+ H Hematology Comments Lab - Chemistry Results 01/21/18 01/21/18 01/22/18 15:36 20:52 04:20 Sodium Potassium Chloride Carbon Dioxide Anion Gap BUN Creatinine Estimated GFR POC Glucose 180 H 192 H 156 H Random Glucose Calcium Phosphorus Magnesium 01/22/18 01/22/18 01/22/18 06:12 14:13 15:48 Sodium 139 Potassium 5.4 H Chloride 112 H Carbon Dioxide 20.1 L Anion Gap 7 BUN 26 H Creatinine 0.65 Estimated GFR Greater than 89 POC Glucose 138 H 153 H Random Glucose 133 H Calcium 8.1 L Phosphorus Magnesium 01/22/18 01/23/18 01/23/18 22:09 00:45 03:53 Sodium Potassium Chloride Carbon Dioxide Anion Gap BUN Creatinine Estimated GFR POC Glucose 79 74 117 H Random Glucose Calcium Phosphorus Magnesium 01/23/18 01/23/18 04:59 09:33 Sodium 136 Potassium 5.5 H Chloride 112 H Carbon Dioxide 15.1 L Anion Gap 9 BUN 35 H Creatinine 0.66 Estimated GFR Greater than 89 POC Glucose 125 H Random Glucose 106 Calcium 8.1 L Phosphorus 3.1 Magnesium 2.3 Imaging: ITS Impressions Femur X-Ray 12/15/17 07:05 CONCLUSION: No fracture is identified. There is extensive soft tissue air in the right gluteal region and extending into the proximal and mid posterior thigh. The soft tissue air suggests an open wound. Pelvis X-Ray 12/15/17 07:05 CONCLUSION: No fracture is identified. However, there is extensive soft tissue air in the left gluteal region and left proximal thigh. Pelvis CT 12/15/17 07:52 CONCLUSION: 1. No fracture is identified. 2. Extensive subcutaneous and soft tissue gas bilaterally, left greater than right. It is most severe in the left gluteal region and extends into the proximal posterior thigh. The soft tissue air dissects through the gluteal musculature. There is adjacent subcutaneous edema. Foot X-Ray 12/18/17 00:00 CONCLUSION: Remote small avulsion fracture at the fifth toe. No acute bony abnormality. Venous Doppler Study 12/22/17 00:00 CONCLUSION: Extensive deep vein thrombosis of the left upper extremity. Abdomen X-Ray 01/19/18 21:06 CONCLUSION: 1. Feeding type Dobbhoff tube in the mid stomach. 2. Mild gaseous distention of the stomach. Chest X-Ray 01/21/18 00:00 CONCLUSION: 1. Feeding tube distal tip is in the gastric fundus. 2. Otherwise, stable examination with suspected small left pleural effusion and bilateral atelectasis versus consolidation at the lung bases. Physical Exam: PHYSICAL EXAMINATION: GENERAL: No distress. HEENT: Extraocular movements grossly intact, pupils reactive to light. Pale sclera. No icterus. NECK: Supple. No adenopathy or swelling. LUNGS: Decreased breath sounds. Good air movement. HEART: irregular S1 and S2. 1-2/6 systolic murmur at the left sternal border. ABDOMEN: Bowel sounds present, soft. BACK: Surgical wound post debridement across the lower back, buttock and thigh. Vac in place. EXTREMITIES: No clubbing, no cyanosis or edema. abrasion with dry necrotic changes at left dorsal toes 2-4. SKIN: No diffuse rash. Scattered ecchymotic lesions. NEUROLOGIC: Unable to assess. PSYCHIATRIC: Calm. Assessment and Plan - Plan IMPRESSION: 1. Necrotizing fasciitis of the back, buttock and thigh. Talia albicans and Talia tropicalis. 2. Septic shock. Responded to broad-spectrum antibiotics. 3. Acute respiratory failure. 4. Chronic kidney disease. 5. Leukocytosis. Improved. 6. UTI - pseudomonas. 7. New episode of sepsis. Improved. 8. PNA - pseudomonas. Probable aspiration. Looks stable. RECOMMENDATIONS: 1. Continue Diflucan P.O. 2. Stop Flagyl. 3. Continue Zosyn for Pseudomonas pneumonia/UTI until January 28, 2018. 4. Monitor the clinical status. I will be off 01/24/2018 to 01/28/2018. Please call ID live in companion if further input needed.
--- NOTE | 2018-01-23 16:04 | P.DIET ---
Nutritional Evaluation Type of nutrition evaluation: follow-up Nutrition consult regarding: Tube Feeding Subjective Subjective Comments: Found down at home. 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%) % IBW: 122 (IBW = 123-lb (adjusted for amp)) Body Weight Used for Calculations: Actual (64.9 kg) Energy Needs - Lower Range (kCal/kg): 30 Energy Needs - Upper Range (kCal/kg): 35 Lower Limit kCal/kg (kCals): 1,947 Upper Limit kCal/kg (kCals): 2,272 Lower Limit Protein Factor (Grams per Kg): 1.2 Upper Limit Protein Factor (Grams per Kg): 1.6 Lower Protein Needs (Protein): 78 Upper Protein Needs (Protein): 104 Dietitian Reviewed in Medical Record: Curent medications, Intake & Output, Labs , Medical history, Tube feeding, Wound/DTI Diet Order: NPO Objective Comments: PMH includes: Hep C, DM, PAD, HTN, Osteomyelitis, R AKA, GERD, gastroparesis, PVD, peripheral neuropathy Decubitus Ulcer; here w/Stage IV sacral decubitus s/p debridement of Necrotizing tissue Fasciitis 01/08/19: Necrotizing Fasciitis of pelvic region and thigh w/ I & D, wound vac change, partial closure Assessment Assessment: Pt continues at high nutrition risk r/t increased needs for wound healing, clinical status and need for TFing. Pt has had multiple trips to the OR for debridement and wound vac changes, requiring TFing to be placed on hold. Recieving Glucerna 1.5 @ 60 ml/hr to provide 2160 kcal, 119g protein and 1093ml free water and Alek 1-pkt BID to aid in wound healing. Labs, wts and clinical course reviewed. CBW = 61.5 kg. Pt with necrotizing fascitis of back, buttock and thigh with wound vac placed, suffering significant wt loss since admission and may need increased TF rate to prevent further nutritional depletion. Recommend increase TF rate to 65 mls/hr to provide 2340 kcals, 99.5 gms protein and 1186 mls of free water. This will provide 38 kcals and 1.6 gms protein per kgbw. Recommendations: Incraese Glucerna 1.5 to 65 mls/hr goal Alek 1 pack bid Dietitian to Monitor: Lab values, Glucose level, Intake & Output, Tube feeding tolerance, Weight change, Wound/skin status, Medical course
--- NOTE | 2018-01-23 16:33 | P.PNPAL ---
Reason for Visit Reason for visit: a. To assist with evaluation and management of symptoms including: dyspnea, debility, pain b. To assist medical decision maker(s) with: better understanding of current medical conditions; weighing benefits/burdens of medical treatment options; making medical treatment decisions. Subjective Subjective/Interval History: Patient seen and examined in ICU. No family at bedside. Patient was transferred to intensive care unit 01/14 after Dk was called for probable sepsis (she was febrile with temp 103, tachypneic with RR 30-40, hypoxic on FiO2 80% via t-piece and unresponsive). She has remained stable in ICU. Has been tolerating T-piece to trach, since 01/19, Fio2 28% today. sputum cultures positive pseudomonas, cont on zosyn per ID. H&H low but stable, 8.0/25.5. WBC 9. Pt noted to refuse PEG, has dobhoff NGT, to be changed every 14 days. Tolerating TF. Pt has also refused diverting colostomy. having loose stools. rectal drain in place. Gen surgery cont to follow for debridement/wound vac changes-- planned for plastic surgery to eval wounds for possible grafting. Pt seen in room no visitors present. She is alert. Nods to questions, mouths words. She seems to understand, though difficult to fully assess orientation. Explore recent hospital course, that she is off the vent, she nods in agreement. She gestures to her trach and mouths that she needs suction, that she cant breathe. (o2 sats 97%, rr20, lungs w some rhonchi). Review NGT in place that she did not want PEG, she nods yes to this. Review recommendations for diverting colostomy, she nods her head no. Review that surgery is following her wounds and they are awaiting plastic surgery to eval if indication for grafting. She has no complaints other than short of breath. She mouths she wants to go home. Review she has been in the hospital many weeks, and likely still has many more days before she would get out of the hospital setting, that she would need rehab probable not able to go directly home. d/w nurse, notified of pt request for suction. Family/Friend Interactions: following exam call to to provide update; left VM w my contact information. Advance Directives Living Will: Never completed Health Care Surrogate: Never completed Health Care Surrogate Name and Number: HCP Tyrone Middleton Documented care wishes:: No known documented care wishes have been completed Objective Vital Signs: Vital Signs 01/22/18 17:00 01/22/18 18:00 01/22/18 18:50 Temperature Pulse Rate 93 H 90 93 H Respiratory Rate 21 21 23 Blood Pressure 148/68 H 148/68 H 151/104 H Pulse Oximetry 100 100 100 01/22/18 18:55 01/22/18 19:00 01/22/18 19:50 Temperature Pulse Rate 92 H 92 H 96 H Respiratory Rate 23 23 23 Blood Pressure 139/66 146/67 H Pulse Oximetry 100 100 100 01/22/18 20:00 01/22/18 20:50 01/22/18 21:00 Temperature 98.5 F Pulse Rate 90 95 H 90 Respiratory Rate 20 24 21 Blood Pressure 139/67 Pulse Oximetry 100 100 100 01/22/18 21:24 01/22/18 21:50 01/22/18 22:00 Temperature Pulse Rate 93 H 93 H Respiratory Rate 23 23 Blood Pressure 141/66 H Pulse Oximetry 100 100 100 01/22/18 22:50 01/22/18 23:00 01/22/18 23:50 Temperature Pulse Rate 95 H 94 H 79 Respiratory Rate 28 H 29 H 21 Blood Pressure 143/74 H 146/77 H Pulse Oximetry 100 100 100 01/23/18 00:00 01/23/18 00:50 01/23/18 01:00 Temperature 98.6 F Pulse Rate 78 80 84 Respiratory Rate 21 24 27 H Blood Pressure 149/71 H Pulse Oximetry 100 100 100 01/23/18 01:50 01/23/18 02:00 01/23/18 02:50 Temperature Pulse Rate 83 86 82 Respiratory Rate 22 19 20 Blood Pressure 142/68 H 135/77 Pulse Oximetry 100 100 100 01/23/18 03:00 01/23/18 03:50 01/23/18 04:00 Temperature 98.7 F Pulse Rate 85 81 87 Respiratory Rate 17 21 19 Blood Pressure 143/69 H Pulse Oximetry 100 100 100 01/23/18 04:50 01/23/18 05:00 01/23/18 05:31 Temperature Pulse Rate 83 79 78 Respiratory Rate 25 H 21 24 Blood Pressure 170/85 H 163/77 H Pulse Oximetry 100 100 100 01/23/18 05:50 01/23/18 06:00 01/23/18 07:00 Temperature Pulse Rate 84 80 78 Respiratory Rate 25 H 22 22 Blood Pressure 159/74 H Pulse Oximetry 100 100 96 01/23/18 07:50 01/23/18 08:00 01/23/18 08:50 Temperature 98.3 F Pulse Rate 86 86 87 Respiratory Rate 24 22 22 Blood Pressure 145/69 H 154/71 H Pulse Oximetry 97 98 98 01/23/18 09:00 01/23/18 09:50 01/23/18 10:00 Temperature Pulse Rate 87 90 91 H Respiratory Rate 23 26 H 29 H Blood Pressure 140/68 Pulse Oximetry 98 98 98 Intake & Output 01/22/18 01/23/18 01/23/18 18:59 06:59 18:59 Intake Total 1167 / 1167 1297 / 1297 50 / 50 Output Total 1750 / 1750 2510 / 2510 Balance -583 / -583 -1213 / -1213 50 / 50 Weight 61.5 kg Intake: IV 300 / 300 50 / 50 50 / 50 Diflucan 200 mg Premix Bag 100 200 / 200 ML @ 100 mls/hr IV.SIG Q24H [facility] Rx#:[id number] Zosyn 3.375 GM Premix 50 ML @ 100 / 100 50 / 50 50 / 50 100 mls/hr IV.SIG Q6H [facility] Rx#: [id number] Tube Feeding 707 / 707 647 / 647 Tube Irrigant 160 / 160 Water Bolus Amount 600 / 600 Output: Stool 700 / 700 1500 / 1500 Urine Amount (Catheter) 1000 / 1000 900 / 900 Indwelling Urethral Catheter 1000 / 1000 900 / 900 Wound Vac Amount 50 / 50 110 / 110 Posterior Sacrum 50 / 50 110 / 110 Other: Mode Setting Posterior Sacrum Continuous Continuous Date of Last Bowel Movement 01/22/18 01/22/18 Physical Exam: CONSTITUTIONAL/GENERAL: This is a chronically ill appearing female who looks older than her stated age. TUBES/LINES/DRAINS: Tracheostomy, SCDs, PIV, wound VAC, rectal drain SKIN: Very pale. Scattered ecchymosis to upper extremities. Wound VAC in place low back with blood-tinged drainage in VAC canister. Skin warm/dry, flaky/scaling in places EYES: Pupils equal and round, reactive. No scleral icterus. No injection or drainage. ENT: Nose without bleeding or purulent drainage. Moist oral mucosa. CARDIOVASCULAR: Regular rate and rhythm. periph pulses palpable. 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 Respiration even/unlabored. Lungs w scattered rhonchi. GASTROINTESTINAL: Abdomen soft, non-tender, mildly distended. No guarding. Bowel sounds active, dobhoff NG in place, TF infusing. rectal drainage device in place loose brown stool GENITOURINARY: Without palpable bladder distension. MUSCULOSKELETAL: Status post right BKA. Left foot cool to touch; dressing to foot. Post tib pulse palpable NEUROLOGICAL: Awake, nods to yes/no questions. Answers questions appropriately. Mouths words, able to understand most of what she is trying to mouth. Follows simple commands. PSYCHIATRIC: Calm/flat, no distress Diagnostic Tests Laboratory: Laboratory Results - last 72 hr 01/20/18 01/20/18 01/21/18 19:46 23:37 03:46 WBC RBC Hgb Hct MCV MCH MCHC RDW Plt Count MPV Prelim Diff (Auto) Neut % (Auto) Lymph % (Auto) [place] % (Auto) Eos % (Auto) Baso % (Auto) Neut # (Auto) Lymph # (Auto) [place] # (Auto) Eos # (Auto) Baso # (Auto) WBC Differential Diff Scan Seg Neuts % (Manual) Band Neuts % (Manual) Lymphocytes % (Manual) Monocytes % (Manual) Eosinophils % (Manual) Metamyelocytes % (Man) Myelocytes % (Man) Abs Neuts (Manual) Nucleated RBCs/100 WBC Differential Comment Toxic Granulation Platelet Estimate Platelet Morphology Basophilic Stippling Ovalocytes Stomatocytes Hematology Comments Sodium Potassium Chloride Carbon Dioxide Anion Gap BUN Creatinine Estimated GFR POC Glucose 198 H 198 H 170 H Random Glucose Calcium Phosphorus Magnesium 01/21/18 01/21/18 01/21/18 04:39 04:39 08:26 WBC 10.0 RBC 2.63 L Hgb 8.1 L Hct 25.2 L MCV 96.1 D MCH 30.8 MCHC 32.0 RDW 21.4 H Plt Count 253 MPV 10.9 Prelim Diff (Auto) Slide review pending Neut % (Auto) 71.5 H Lymph % (Auto) 19.3 [place] % (Auto) 4.3 Eos % (Auto) 3.7 Baso % (Auto) 1.2 Neut # (Auto) 7.1 Lymph # (Auto) 1.9 [place] # (Auto) 0.4 Eos # (Auto) 0.4 Baso # (Auto) 0.1 WBC Differential . Diff Scan Auto diff confirmed Seg Neuts % (Manual) Band Neuts % (Manual) Lymphocytes % (Manual) Monocytes % (Manual) Eosinophils % (Manual) Metamyelocytes % (Man) Myelocytes % (Man) Abs Neuts (Manual) Nucleated RBCs/100 WBC Differential Comment . Toxic Granulation 2+ H Platelet Estimate Normal Platelet Morphology Enlarged H Basophilic Stippling Ovalocytes 1+ H Stomatocytes Hematology Comments Sodium 141 Potassium 4.7 Chloride 113 H Carbon Dioxide 20.0 L Anion Gap 8 BUN 23 H Creatinine 0.61 Estimated GFR Greater than 89 POC Glucose 196 H Random Glucose 176 H Calcium 8.0 L Phosphorus 2.5 Magnesium 2.2 01/21/18 01/21/18 01/22/18 15:36 20:52 04:20 WBC RBC Hgb Hct MCV MCH MCHC RDW Plt Count MPV Prelim Diff (Auto) Neut % (Auto) Lymph % (Auto) [place] % (Auto) Eos % (Auto) Baso % (Auto) Neut # (Auto) Lymph # (Auto) [place] # (Auto) Eos # (Auto) Baso # (Auto) WBC Differential Diff Scan Seg Neuts % (Manual) Band Neuts % (Manual) Lymphocytes % (Manual) Monocytes % (Manual) Eosinophils % (Manual) Metamyelocytes % (Man) Myelocytes % (Man) Abs Neuts (Manual) Nucleated RBCs/100 WBC Differential Comment Toxic Granulation Platelet Estimate Platelet Morphology Basophilic Stippling Ovalocytes Stomatocytes Hematology Comments Sodium Potassium Chloride Carbon Dioxide Anion Gap BUN Creatinine Estimated GFR POC Glucose 180 H 192 H 156 H Random Glucose Calcium Phosphorus Magnesium 01/22/18 01/22/18 01/22/18 06:12 06:12 14:13 WBC 11.0 RBC 2.57 L Hgb 7.9 L Hct 24.2 L MCV 94.1 MCH 30.7 MCHC 32.6 RDW 20.8 H Plt Count 294 MPV 10.6 Prelim Diff (Auto) Slide review pending Neut % (Auto) 70.5 H Lymph % (Auto) 21.4 [place] % (Auto) 4.4 Eos % (Auto) 2.8 Baso % (Auto) 0.9 Neut # (Auto) 7.7 Lymph # (Auto) 2.4 [place] # (Auto) 0.5 Eos # (Auto) 0.3 Baso # (Auto) 0.1 WBC Differential Manual diff final Diff Scan Seg Neuts % (Manual) 67 Band Neuts % (Manual) 3 Lymphocytes % (Manual) 18 Monocytes % (Manual) 7 Eosinophils % (Manual) 2 Metamyelocytes % (Man) Myelocytes % (Man) 3 H Abs Neuts (Manual) 8.0 H Nucleated RBCs/100 WBC Differential Comment . Toxic Granulation 1+ H Platelet Estimate Normal Platelet Morphology Enlarged H Basophilic Stippling Faint H Ovalocytes 1+ H Stomatocytes 1+ H Hematology Comments Sodium 139 Potassium 5.4 H Chloride 112 H Carbon Dioxide 20.1 L Anion Gap 7 BUN 26 H Creatinine 0.65 Estimated GFR Greater than 89 POC Glucose 138 H Random Glucose 133 H Calcium 8.1 L Phosphorus Magnesium 01/22/18 01/22/18 01/23/18 15:48 22:09 00:45 WBC RBC Hgb Hct MCV MCH MCHC RDW Plt Count MPV Prelim Diff (Auto) Neut % (Auto) Lymph % (Auto) [place] % (Auto) Eos % (Auto) Baso % (Auto) Neut # (Auto) Lymph # (Auto) [place] # (Auto) Eos # (Auto) Baso # (Auto) WBC Differential Diff Scan Seg Neuts % (Manual) Band Neuts % (Manual) Lymphocytes % (Manual) Monocytes % (Manual) Eosinophils % (Manual) Metamyelocytes % (Man) Myelocytes % (Man) Abs Neuts (Manual) Nucleated RBCs/100 WBC Differential Comment Toxic Granulation Platelet Estimate Platelet Morphology Basophilic Stippling Ovalocytes Stomatocytes Hematology Comments Sodium Potassium Chloride Carbon Dioxide Anion Gap BUN Creatinine Estimated GFR POC Glucose 153 H 79 74 Random Glucose Calcium Phosphorus Magnesium 01/23/18 01/23/18 01/23/18 03:53 04:59 04:59 WBC 9.0 RBC 2.59 L Hgb 8.0 L Hct 25.5 L MCV 98.4 D MCH 30.9 MCHC 31.4 L RDW 22.0 H Plt Count 285 MPV 10.3 Prelim Diff (Auto) Slide review pending Neut % (Auto) 67.3 Lymph % (Auto) 23.6 [place] % (Auto) 4.4 Eos % (Auto) 3.5 Baso % (Auto) 1.2 Neut # (Auto) 6.1 Lymph # (Auto) 2.1 [place] # (Auto) 0.4 Eos # (Auto) 0.3 Baso # (Auto) 0.1 WBC Differential Manual diff final Diff Scan Seg Neuts % (Manual) 52 Band Neuts % (Manual) 5 Lymphocytes % (Manual) 32 Monocytes % (Manual) 5 Eosinophils % (Manual) 5 H Metamyelocytes % (Man) 1 Myelocytes % (Man) Abs Neuts (Manual) 5.2 Nucleated RBCs/100 WBC 1 H Differential Comment . Toxic Granulation Platelet Estimate Normal Platelet Morphology Normal Basophilic Stippling Ovalocytes Stomatocytes Hematology Comments Sodium 136 Potassium 5.5 H Chloride 112 H Carbon Dioxide 15.1 L Anion Gap 9 BUN 35 H Creatinine 0.66 Estimated GFR Greater than 89 POC Glucose 117 H Random Glucose 106 Calcium 8.1 L Phosphorus 3.1 Magnesium 2.3 01/23/18 09:33 WBC RBC Hgb Hct MCV MCH MCHC RDW Plt Count MPV Prelim Diff (Auto) Neut % (Auto) Lymph % (Auto) [place] % (Auto) Eos % (Auto) Baso % (Auto) Neut # (Auto) Lymph # (Auto) [place] # (Auto) Eos # (Auto) Baso # (Auto) WBC Differential Diff Scan Seg Neuts % (Manual) Band Neuts % (Manual) Lymphocytes % (Manual) Monocytes % (Manual) Eosinophils % (Manual) Metamyelocytes % (Man) Myelocytes % (Man) Abs Neuts (Manual) Nucleated RBCs/100 WBC Differential Comment Toxic Granulation Platelet Estimate Platelet Morphology Basophilic Stippling Ovalocytes Stomatocytes Hematology Comments Sodium Potassium Chloride Carbon Dioxide Anion Gap BUN Creatinine Estimated GFR POC Glucose 125 H Random Glucose Calcium Phosphorus Magnesium Result Diagrams: 01/23/18 04:59 01/23/18 04:59 Microbiology: Microbiology 12/24/17 12:20 Acid Fast Bacilli Smear - Final Tissue - Buttock No acid fast bacilli seen Mycobacterial Culture - Preliminary No growth in 4 weeks Imaging: ITS Impressions Chest X-Ray 01/21/18 00:00 CONCLUSION: 1. Feeding tube distal tip is in the gastric fundus. 2. Otherwise, stable examination with suspected small left pleural effusion and bilateral atelectasis versus consolidation at the lung bases. Procedures: 12/15/2017: Endotracheal intubation 12/15/2017: Left subclavian central line placement 12/15/2017: NGT placement 12/15/2017: I&D with wound HEMOVAC placement 12/18/2017: I&D with wound VAC change 12/21/2017: I&D with wound VAC change 12/24/2017: I&D with wound VAC change 12/28/2017: perc trach, wound vac change to back, buttock, posterior thigh 12/31/2017: I&D with wound VAC change, removal of coccyx bone 01/04/2018: I&D with wound VAC change 01/08/2018: I&D with wound VAC change, partial closure Assessment and Plan - Disease Oriented Problem List (1) Septic shock with acute organ dysfunction due to anaerobic bacteria (2) Acute respiratory failure (3) Type 2 diabetes mellitus with hyperosmolar nonketotic hyperglycemia (4) Necrotizing fasciitis (5) MARIO (acute kidney injury) (6) Lactic acidosis (7) Hypernatremia Pertinent Non-Medical Issues: Psychosocial:Originally from [place]. Currently . Spiritual: No restoration affiliation. Legal: Per [place] statutes, in the absence of written advanced directives health care proxy decision making will fall to the patient's , Tyrone. Ethical issues impacting care: No known ethical issues impacting care at this time. Important Contacts: Tyrone Middleton, : [phone] Sister Linette Lebron , Prognosis: Patient is critically ill and in septic shock with necrotizing fasciitis secondary to a chronic sacral decubitus. Upon arrival to the ED, the patient was hyperglycemic with a blood glucose of 610, severely dehydrated and in profound shock. She is intubated on mechanical ventilation requiring pressor support status post wide excision of the involved soft tissue. Patient will require further debridement in the future. She remains hemodynamically unstable and critically ill. Now declining, may not survive this hospitalization. Very poor overall prognosis for meaningful recovery. Code Status: Full Code Plan: * CODE STATUS: FULL CODE. Risks, benefits and limitations of CPR were discussed at length with patient's on 01/14. Briefly discussed with patient 01/17/18, she also indicated desire for FULL CODE. * HEALTHCARE DECISION-MAKING: Difficult to assess insight and judgment related to her complicated clinical condition, unclear if she will regain capacity for medical decision-making. Per [place] statute, in the absence of written advanced directives healthcare proxy decision making falls to the patient's , Tyrone Middleton. He has accepted this role. * GOALS OF CARE: Goals remain aggressive including FULL CODE. Patient declines colostomy, PEG. She wants to go home. Patient seems to understand though cannot clearly determine capacity given communication limitations. * Symptom management: = Pain: Multifactoral. Patient has a long history of chronic conditions. Possible contributing factors include severe peripheral arterial disease, recent BKA, peripheral neuropathy, sepsis, necrotizing fasciitis, invasive lines, immobility. Currently on fentanyl patch 50 mcg q72hrs. Appears comfortable at time of my visit, nods no to pain, relieved with sparing PRN Hydrocodone 5mg (using approx 3x per day). No further recommendations. = Debility/profound physical deconditioning: Patient with uncontrolled diabetes with severe peripheral arterial disease and smoking. 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 Debility anticipated to worsen. has been back in ICU on vent, which further set back restorative efforts. now off vent, transfer order out of icu = Fever - due to sepsis. Resolved. = Dyspnea: trach to t-piece, tolerating x 5 days, 28% fio2 today. Still w rhonchi, endorses SOB, requests suctioning per nursing . CXR stable : stable examination with suspected small left pleural effusion and bilateral atelectasis versus consolidation at the lung bases * Palliative care will continue to follow this patient throughout her hospitalization to establish trust, assist with symptom management and clarification of medical treatment goals. Attestation Attestation: To help prompt me to consider important information that might be impacting today's encounter and assessment, information from prior notes written by myself or my colleagues may have been "brought forward" into today's note. My signature on this note, however, is an attestation that I personally performed the exam, history, and/or decision-making noted today, and, unless otherwise indicated, the interactions with patient, family, and staff as well as the review of records all occurred today. I also attest that the listed assessment and stated plan reflect my best clinical judgment today based on the combination of historical information, prior notes, and today's exam/ interactions. When time spent is documented, it refers only to time spent today by the signer, or if indicated, combined time spent today by collaborating physician/nurse practitioner.
[2018-01-23] MEDS: Enoxaparin Inj 30 MG/0.3 ML Syringe SQ SCH (18:15)
[2018-01-23] MEDS ORDERED: Sodium Polystyrene Sulfonate/Sorbitol Liq 15 GM/60 ML UDC PO ONE (19:03)
--- NOTE | 2018-01-23 19:03 | P.PNIM ---
Subjective Interval history: Patient sleepy opens eyes to voice. No significant complaints. Per nursing staff had 11 beat run of nonsustained V. tach. Tolerating trach collar. Physical Exam Vital signs: Last Vital Signs Temp 98.3 F 01/23/18 08:00 Pulse 91 H 01/23/18 10:00 Resp 29 H 01/23/18 10:00 BP 140/68 01/23/18 09:50 Pulse Ox 98 01/23/18 10:00 Intake & Output 01/21/18 01/22/18 01/23/18 01/24/18 06:59 06:59 06:59 06:59 Intake Total 3459 / 3459 3909 / 3909 2464 / 2464 50 / 50 Output Total 2275 / 2275 2540 / 2540 4260 / 4260 Balance 1184 / 1184 1369 / 1369 -1796 / -1796 50 / 50 Weight 68.8 kg 66.2 kg 61.5 kg Narrative: General: Cachectic middle-aged woman, on T-piece via tracheostomy. Lungs: Supplemental oxygen through tracheostomy. Good bilateral breath sounds, relatively clear. Acceptable cough effort Heart: RRR. Abdomen: Soft, no guarding, nondistended, nontender, bowel sounds active Back: Wound VAC remains in place over lower bilateral lumbar region. Surrounding skin is mildly erythematous. Musculoskeletal: Warm, well perfused, status post below-knee amputation right side, well-healed. Neurological: Sleepy but opens eyes to voice. Urinary Catheter Management Indwelling Urethral Catheter: Cath placed during this visit: yes Urethral indwelling: Yes Reason for continuing: Hourly intake/output Insertion date: 01/13/18 Insertion time: 01:00 1: Cath placed during this visit: yes, but has since been removed by the nurse Urethral indwelling: Yes Insertion date: 12/15/17 Removal date: 01/13/18 Removal time: 01:00 Results Labs CBC & Chem 7: 01/29/18 05:31 01/29/18 05:31 Labs: Microbiology 12/24/17 12:20 Tissue - Buttock Acid Fast Bacilli Smear - Final No acid fast bacilli seen 12/24/17 12:20 Tissue - Buttock Mycobacterial Culture - Preliminary No growth in 4 weeks Procedures Procedures: lumbar wd debridement with wd vac Assessment and Plan Plan Acute metabolic encephalopathy Resolved Septic Shock- improving With necrotizing soft tissue infection Myocardial dysfunction secondary to septic shock Fluid overload Tapered levophed off IV Zosyn Acute hypoxic and hypercarbic respiratory failure- persistent - s/p Trach in OR 12/28/17. -Tolerating T-piece Diabetes mellitus type II, initially uncontrolled, insulin-dependent, no active complications Severe hyperglycemia. Improved - Med scale SSI. - Follow potassium and magnesium closely - Ongoing adjustments with basal insulin following episode of sepsis, requirements now declining Hematology/Infectious Disease Septic Shock Necrotizing soft tissue infection CAUTI, PSAE PNA, PSAE - Follow white count and platelet count closely. - Continue Zosyn. Continue Diflucan for fungal coverage. Stop Flagyl per infectious disease Dr. Song - General surgery service following back wounds, scheduling debridement. Plastic for possible grafting vac change this week, possible vac removal soon and transition to wet to dry per general surgery GI Acute protein calorie malnutrition- severe - Tube feeds infusing, tolerated. As needed IV fluids - Follow prealbumin weekly - Dignishield placed to protect wounds from soilage. - Follow prealbumin weekly. - refused PEG (change NG every 14 days) Acute kidney injury resolved Mild hyperkalemia - Tristan required for hourly urine output and to protect perineal region. - May ultimately require colostomy to protect this region. -Per previous provider cannot think of a solution to the problem of continuous wound soilage. Refused colostomy - Discontinue potassium supplementation repeat BMP in the morning, elevated potassium persists we will give a low dose of p.o. Kayexalate HEME Left upper extremity DVT Anemia. Improved - DVT left internal jugular, subclavian, axillary and distal arm veins. - Cannot anticoagulate secondary to blood loss anemia requiring blood transfusion, frequent surgeries. - Arterial inflow into the left arm and hand is good. Hyperkalemiadose of Kayexalate, patient not on scheduled potassium supplements. Nursing reports 11 beat run of nonsustained V. tach ?due to hyperkalemia, previous 2D echo done on September 2079 showed normal ventricular size. Prophylaxis - Pepcid for GI ulcer prophylaxis - SCDs for DVT prophylaxis - chemical DVT prophylaxis with Lovenox okayed by general surgery Lines: PIV Overall impression: This woman was initially critically ill and in septic shock with necrotizing fasciitis emanating from a deep chronic sacral decubitus ulcer. She has required multiple OR trips for I&D and VAC changes. Family request continued aggressive care. She had a recurrent bout of severe sepsis on 01/14 but after 2 debridements she is very much improved. Now on T-piece, hemodynamically stable, Progress Note: Quality VTE Deep Vein Thrombosis/Pulmonary Embolism Present on Admission: No
[2018-01-24] MEDS: hydrALAZINE HCl Inj 20 MG/ML Vial IV.PUSH PRN (01:08)
[2018-01-24] MEDS: Piperacil/Tazo 3.375 GM Premix 50 ML IV.SIG SCH ×4 (01:09→18:48)
[2018-01-24] MEDS: Oral Hygiene Kit OROPHARYNG SCH ×4 (01:10→16:55)
[2018-01-24] MEDS: Insulin NovoLIN Regular Correctional Sugar Inj SQ SCH ×4 (03:31→22:57)
[2018-01-24 07:55] LABS: Anion Gap 10 meq/L (5-15); Blood Urea Nitrogen 32 mg/dL (7-18); Calcium 8.5 mg/dL (8.5-10.1); Carbon Dioxide 19.5 meq/L (21.0-32.0); Chloride 109 meq/L (98-107); Glomerular Filtration Rate Greater Than 89 mL/min (>89); Glucose,Random 83 mg/dL (74-106); Sodium 138 meq/L (136-145)
[2018-01-24] MEDS: Chlorhexidine 0.12% Oral Kit 15 ML UDC OROPHARYNG SCH ×2 (08:02→20:45)
[2018-01-24] MEDS: Insulin Detemir Inj 1,000 UNIT/10 ML Vial SQ SCH ×3 (08:02→21:45)
[2018-01-24] MEDS: Lansoprazole ODT 15 MG Tablet NG/OG SCH (08:39)
[2018-01-24] MEDS: Senna/Docusate Sodium 8.6/50 MG Tablet NG/OG SCH ×2 (08:39→20:44)
[2018-01-24] MEDS: hydrALAZINE 50 MG Tablet NG/OG SCH ×3 (08:39→18:48)
[2018-01-24] MEDS: Metoprolol Tartrate 50 MG Tablet NG/OG SCH ×2 (08:39→20:44)
[2018-01-24] MEDS: Lisinopril 5 MG Tablet NG/OG SCH (08:39)
[2018-01-24] MEDS: Collagenase Oint 30 GM Tube TOPICAL SCH (08:40)
[2018-01-24] MEDS: Lactic Acid (Ammonium Lactate) 12% Lotion 225 GM Bottle TOPICAL SCH ×2 (08:40→21:56)
[2018-01-24] MEDS ORDERED: Morphine Inj 4 MG/ML Vial IV.PUSH ONE (12:39)
[2018-01-24] MEDS ORDERED: Morphine Inj 4 MG/ML Vial ONE (12:39)
--- NOTE | 2018-01-24 17:47 | P.PNIM ---
Subjective Interval history: No acute changes overnight per nursing staff. Patient opens eyes to voice Physical Exam Vital signs: Last Vital Signs Temp 98.8 F 01/24/18 12:00 Pulse 86 01/24/18 17:00 Resp 21 01/24/18 17:00 BP 159/72 H 01/24/18 16:50 Pulse Ox 100 01/24/18 17:00 Intake & Output 01/22/18 01/23/18 01/24/18 01/25/18 06:59 06:59 06:59 06:59 Intake Total 3909 / 3909 2464 / 2464 2908 / 2908 100 / 100 Output Total 2540 / 2540 4260 / 4260 3525 / 3525 Balance 1369 / 1369 -1796 / -1796 -617 / -617 100 / 100 Weight 66.2 kg 61.5 kg 59.5 kg Narrative: General: Cachectic middle-aged woman, on T-piece via tracheostomy. Lungs: Supplemental oxygen through tracheostomy. Good bilateral breath sounds, relatively clear. Heart: RRR. Abdomen: Soft, no guarding, nondistended, nontender, few bowel sounds Back: Wound VAC remains in place over lower left hip and trunk. Surrounding skin is mildly erythematous. Musculoskeletal: Warm, well perfused, status post below-knee amputation right side, well-healed. Neurological: Sleepy but opens eyes to voice. Urinary Catheter Management Indwelling Urethral Catheter: Cath placed during this visit: yes Insertion date: 01/13/18 Insertion time: 01:00 1: Cath placed during this visit: yes, but has since been removed by the nurse Urethral indwelling: Yes Insertion date: 12/15/17 Removal date: 01/13/18 Removal time: 01:00 Results Labs CBC & Chem 7: 01/23/18 04:59 01/24/18 06:03 Procedures Procedures: lumbar wd debridement with wd vac Assessment and Plan Plan Acute metabolic encephalopathy Resolved Septic Shock- improving With necrotizing soft tissue infection Myocardial dysfunction secondary to septic shock Fluid overload Tapered levophed off Continue with IV Zosyn Acute hypoxic and hypercarbic respiratory failure- persistent - s/p Trach in OR 12/28/17. -Tolerating T-piece Diabetes mellitus type II, initially uncontrolled, insulin-dependent, no active complications Now currently blood sugar better controlled. - Med scale SSI. - Follow potassium and magnesium closely -Continue with current basal insulin Levemir 16 Units BID Hematology/Infectious Disease Septic Shock Necrotizing soft tissue infection CAUTI, PSAE PNA, PSAE - Follow white count and platelet count closely. - Continue Zosyn. Continue Diflucan for fungal coverage. Stop Flagyl per infectious disease Dr. Song - General surgery service following back wounds, scheduling debridement. Plastic for possible grafting vac change this week, possible vac removal soon and transition to wet to dry per general surgery GI Acute protein calorie malnutrition- severe - Tube feeds infusing, tolerated. As needed IV fluids - Follow prealbumin weekly - Dignishield placed to protect wounds from soilage. - Follow prealbumin weekly. - refused PEG (change NG every 14 days) Acute kidney injury resolved Mild hyperkalemia now resolved. - Tristan required for hourly urine output and to protect perineal region. - May ultimately require colostomy to protect this region. -Per previous provider cannot think of a solution to the problem of continuous wound soilage. Refused colostomy HEME Left upper extremity DVT Anemia. Improved - DVT left internal jugular, subclavian, axillary and distal arm veins. - Cannot anticoagulate secondary to blood loss anemia requiring blood transfusion, frequent surgeries. - Arterial inflow into the left arm and hand is good. Hyperkalemiadose of Kayexalate, patient not on scheduled potassium supplements. Prophylaxis - Pepcid for GI ulcer prophylaxis - SCDs for DVT prophylaxis - chemical DVT prophylaxis with Lovenox okayed by general surgery Lines: PIV Overall impression: This woman was initially critically ill and in septic shock with necrotizing fasciitis emanating from a deep chronic sacral decubitus ulcer. She has required multiple OR trips for I&D and VAC changes. Family request continued aggressive care. She had a recurrent bout of severe sepsis on 01/14 but after 2 debridements she is very much improved. Now on T-piece, hemodynamically stable, Progress Note: Quality VTE Deep Vein Thrombosis/Pulmonary Embolism Present on Admission: No
[2018-01-24] MEDS: Enoxaparin Inj 30 MG/0.3 ML Syringe SQ SCH (18:48)
--- NOTE | 2018-01-24 19:20 | MB ---
cc: Evangelina De La Rosa MD DATE: 01/24/2018 The patient is being seen at the request of Ventura Bazzi MD. REASON FOR CONSULTATION: Evaluation of the open wound of the patient's back and left side of her buttock. HISTORY OF PRESENT ILLNESS: The patient is a 52-year-old female who was admitted on 12/15/2017. At that time, the admitting diagnosis was necrotizing fasciitis. The patient was treated by Dr. Ventura Bazzi with wide excision of the back, buttock, and thigh area. A wound VAC was placed. Since that time, the patient apparently has had additional procedures. Consultation is requested regarding evaluation and treatment of the open wound. The patient was scheduled for wound VAC change today and I was present in order to evaluate the wound. PAST MEDICAL HISTORY: The patient has a history of hypertension, diabetes, gastroesophageal reflux disease, hepatitis C, history of Clostridium difficile colitis, history of diabetic gastroparesis, multiple drug resistant organisms, osteomyelitis, peripheral neuropathy, and peripheral vascular disease. The patient has a history of [id number] amputation and previous . FAMILY HISTORY: Significant for alcohol dependence. ALLERGIES: SHE HAS NO KNOWN FOOD OR DRUG ALLERGIES. MEDICATIONS: Listed on the chart. PHYSICAL EXAMINATION: GENERAL: The patient is lying comfortably in bed. VITAL SIGNS: Temperature is 98.6, pulse is 82, respirations 23, and pulse oximetry is 99 on room air. HEENT: Extraocular muscles are intact. Pupils are equal, round, and reactive to light. Mouth is clear. She is on a T-piece via tracheostomy. CHEST: She has good bilateral breath sounds. HEART: Regular rate and rhythm. BACK: Examination of her back reveals a large open wound, which has been closed in the middle. There is black foam which was placed over the wound and beneath some of the stitches which had been placed. There was also a piece measuring approximately 10 cm x 6 cm V-shaped and tucked in between the deep tissue and the superficial tissue. There is a significant amount of exposed fascial tissue toward the medial and central part of the wound on the right side. There is some slough present. The remainder shows adequate granulation. IMPRESSION: The patient has a wound VAC, status post necrotizing fasciitis. PLAN: I would continue with the wound VAC. This patient will likely need this therapy for a good period of time several weeks with additional debridement may be necessary. I would avoid placing the foam between folds of tissue or deep in the wound in order to allow for granulation closure. This patient presently is not a candidate for skin grafting as the wounds are not ready. In the future, depending upon the size and location of the wounds as they heal, one might consider a diverting colostomy in order to allow for uninterrupted care of the skin grafts. MD DURAN Bajwa/ts , 04:51 PM , 05:01 PM
[2018-01-25] MEDS: Piperacil/Tazo 3.375 GM Premix 50 ML IV.SIG SCH ×4 (00:30→18:23)
[2018-01-25] MEDS: Oral Hygiene Kit OROPHARYNG SCH ×5 (00:30→23:15)
[2018-01-25] MEDS: Insulin NovoLIN Regular Correctional Sugar Inj SQ SCH ×4 (04:00→21:08)
--- NOTE | 2018-01-25 04:15 | XR ---
EXAM DATE: 01/25/2018 4:10 AM EST AGE/SEX: 52 years / Female INDICATIONS: Dobbhoff placement. CLINICAL DATA: This is the patient's subsequent encounter. Patient reports that signs and symptoms h ave been present for 1 month and indicates a pain score of Nonresponsive. MEDICAL/SURGICAL HISTORY: . Hypertension. Diabetes mellitus type II. Hepatitis C. GERD, sepsis . . section . COMPARISON: [facility] [place], [facility], 01/19/2018. . FINDINGS: Dobbhoff catheter is noted in the distal tip projecting at the expected location of the proximal stom ach just beyond the EG junction. The osseous structures are intact. CONCLUSION: Feeding tube as above. Electronically signed by: Shayan Perez MD 01/25/2018 4:14 AM EST
[2018-01-25] MEDS: Chlorhexidine 0.12% Oral Kit 15 ML UDC OROPHARYNG SCH ×2 (08:06→21:06)
[2018-01-25] MEDS: hydrALAZINE 50 MG Tablet NG/OG SCH ×3 (08:06→17:26)
[2018-01-25] MEDS: Metoprolol Tartrate 50 MG Tablet NG/OG SCH ×3 (08:06→21:10)
[2018-01-25] MEDS: Insulin Detemir Inj 1,000 UNIT/10 ML Vial SQ SCH ×4 (08:07→21:26)
[2018-01-25] MEDS: Lactic Acid (Ammonium Lactate) 12% Lotion 225 GM Bottle TOPICAL SCH ×2 (08:07→21:07)
[2018-01-25] MEDS: Lansoprazole ODT 15 MG Tablet NG/OG SCH (08:08)
[2018-01-25] MEDS: Lisinopril 5 MG Tablet NG/OG SCH (08:08)
[2018-01-25] MEDS: Collagenase Oint 30 GM Tube TOPICAL SCH (08:08)
[2018-01-25] MEDS: Senna/Docusate Sodium 8.6/50 MG Tablet NG/OG SCH ×2 (08:08→21:06)
--- NOTE | 2018-01-25 15:54 | P.PNIM ---
Subjective Interval history: This 52-year-old woman with long-standing uncontrolled diabetes mellitus and severe peripheral arterial disease related to a long-term heavy smoking history was found down at her home and initial blood glucose was 610. Her lower back and buttocks was exquisitely tender and a mid line stage IV sacral decubitus was oozing purulent material and inflamed and the surrounding soft tissue. White count was not elevated but 90% neutrophils. Temperature 97 degrees. Moderately encephalopathic though conversant. X-rays revealed no fractures in the pelvis but CAT scan demonstrated extensive subcutaneous air emanating in both directions left and right from the mid sacral region. This is clearly necrotizing fasciitis or some other gas-forming infection and the woman is critically ill. She received vancomycin, Zosyn, and clindamycin antibiotic therapy as quickly as possible and was transferred to the ICU for ongoing resuscitation. Because of worsening hemodynamic stability she required intubation and mechanical ventilation followed by central line placement on arrival to the ICU. Insulin drip infusion was started in the emergency department and glucose had declined into the low 400s. She was not in ketoacidosis but lactic acid was elevated at 3.1. General surgery and orthopedic surgery were consulted for recommendations and it was felt that this woman was too unstable to tolerate an operative procedure immediately. We continue her ongoing resuscitation and trial in the ICU at this stage. 12/16: Following aggressive resuscitation yesterday for the treatment of severe hyperglycemia, septic shock, respiratory failure, metabolic acidosis, acute kidney injury, the patient went to the operating room with an extensive wide debridement bilateral gluteal and left thigh soft tissue and muscle. Primary antibiotic coverage at this point is vancomycin, cefepime, clindamycin. The patient started to make urine late yesterday afternoon and has continued to acceptable output since. Lactic acidosis is 2.0 this morning but metabolic acidosis persists despite bicarb drip. She remains on vasopressor support and hemodynamically unstable. 12/17: s/p debridement of large nec fasc wound. remains in shock today. also very hypoglycemic requiring multiple D50 amps overnight. 12/18: back in worsening shock. vasopressor support higher. required 2L crystalloid overnight and additional 1L and 500cc albumin today. ivc completely flat on bedside echo. LVEF hyperdynamic. no pericardial effusion. spoken with gen surg. plan to go back early to eval for worsening necrosis. fio2 also up to 100% and peep 10- hypoxic, likely early ARDS. 12/19: clinically doing better. still in shock on vasopressors, but requirements are lower and lactate cleared. Cr slowly uptrending. SVV still 19% today and appears to be volume responsive. gen surgery ordered 2 units prbc for falling hgb in the setting of blood loss with surgical intervention yesterday. fio2 improving. glycemic control also improving. 12/20: Markedly impaired oxygenation persists. Still requiring elevated end expiratory pressure. Nutritional support continues but she remains catabolic. It will be difficult to keep up with her nutritional needs. 12/21: Continued severe sepsis requiring vasopressor support and mechanical ventilation. Oxygenation remains impaired and smoldering metabolic acidosis persists. Despite hemodynamic instability the patient's only hope for survival is with infection source control through further debridement. Clearly a greatly increased risk however for any procedure. 12/22: Persistent septic shock course requiring vasopressor support and regular debridement. Good antibiotic coverage but she continues to require adjustment of ventilator, hemodynamic support drugs, antibiotics, intravenous fluids. Her nutritional status was quite depleted on arrival and continues to deteriorate despite adjuvant nutrition. 12/23: Patient continues septic course. She has developed venous clot throughout her left internal jugular subclavian and axillary vein system. Not a candidate for full anticoagulation because of need for frequent surgical debridement. We will pull out the catheter today and placing In the right subclavian route. 12/24 remains critically ill and septic remains on Rj-Synephrine at 50 mcg/kg/ min. WBC count increasing 20 6K today. Antibiotics have been changed by ID. Diflucan added for Talia UTI. Plan for OR today per surgery 12/25: Went to OR yesterday, s/p Incision, drainage with excisional debridement of back, buttock, thigh, and VAC change. Main septic White count increasing 31, 000 today, remains on pressors vasopressin and Rj-Synephrine. 12/26: Remains critical remains on vasopressin to maintain blood pressure and map above 65, currently off Rj-Synephrine. Remains severely fluid overloaded approximately 20 kg up. Despite pressor use will start IV diuretics to achieve negative fluid balance 12/27: Intubated sedated but more awake follows some commands. Hemoglobin down to 6.4, 2 g dropped, receiving 2 units of PRBC. No obvious bleeding noted. Currently had been weaned off the pressors. Or planned for tomorrow again 12/28: OR today for wound VAC change and I&D, possible tracheostomy. Potassium is 2.6 getting replaced. Hemoglobin stable. Remains off pressors. Urine output almost 8 L with forced diuresis 12/29: Status post OR for wound VAC change in tracheostomy yesterday. Getting for his diuresis urine output more than 4 L in 24 hours. Remains intubated sedated intermittently follows commands. Plan for I&D wound VAC change again on Saturday 12/30: Remains intubated sedated more stable. Urine output remains excellent with diuresis. Plan for OR in a.m. for further I&D and VAC change 12/31: Patient remains intubated plan for OR today with Dr. Muir for further I&D and wound VAC change. Making urine more than 4 L in 24 hours with diuresis. Getting closer to admission weight. Potassium 3.3 getting replacement 01/01: Remains intubated sedated failing CPAP due to low tidal volumes. Status post OR yesterday for the I&D tomorrow planned by general surgery. Urine output 3 L in 24 hours 01/02: Potassium being replaced. Ready for OR today. Return from the OR with stable hemodynamics on mechanical ventilation. 01/03: Attempted spontaneous breathing trials today and converted to T piece. We will continue this method of weaning. Nutrition infusing and well- tolerated. Severity of wound will require a lengthy hospitalization. 01/04: Nasogastric tube is out. She is much more alert and we will try a swallow evaluation before replacing. Contraction alkalosis is developing with diuretics, will add a carbonic anhydrase inhibitor. 01/05: Breathing comfortably on T-piece. Failed swallow eval. Will need to replace nasogastric tube or Dobbhoff for nutrition. 01/06: Alert interactive. Failed swallow eval possibly due to the distortion of the trach cuff. Continue feeding through Dobbhoff tube. Patient is stable to go to floor now. Fentanyl drip converted to fentanyl patch. Adequately diuresed of post edema, discontinue diuretics and replace potassium. After K replaced add lisinopril now that GFR back to normal. 01/07 - 01/13: Patient undergoing care on floor with continuous tube feeding and serial surgical debridements. Wound VAC in place. 01/14: Patient developed temperature of 103 with sustained tachycardia and obtundation. She clearly appears septic. Cultures have been ordered by the floor staff and resuscitation with isotonic crystalloid has begun in the ICU. Her abdomen is soft and her chest x-ray is clear. She has no indwelling lines. The likely culprit is the depths of the wound and/or stool contamination. 01/15: Patient underwent debridement of the lumbar wounds yesterday. She is still requiring vasopressor therapy to support her blood pressure and mechanical ventilation for respiratory failure. She remains critically ill. 01/16: Remains on mechanical ventilation via tracheostomy. Tolerating CPAP trial. Off pressors since yesterday. 01/17: Remains on mechanical ventilation via tracheostomy. Tolerating CPAP trial with pressure support +10 however gets tachypneic on lowering pressor support. 01/18: Debridement/washout of lumbar wounds done today. Remains on mechanical ventilation via tracheostomy. 01/19: She tolerated her debridement yesterday well and is back on spontaneous breathing trials this morning at 10/5. She looks comfortable and we will try to get her to T-piece today. 01/20: Tolerating T-piece well and continues after 24 hours and a nonlabored pattern. Glucose control remains poor; she became intolerant during her recent sepsis and we are trying to find a new baseline regimen. 12-3 Follow-up sepsis and necrotizing fasciitis. Consulted by critical care medicine for transfer care medical management. Chart reviewed. Seen in [facility]. Has no complaints awake and ff commands. Per RN, respiratory distress in PACU but did not require vent. She remains on trach collar. Minimal trach secretions. Urine output of 275 mL overnight. 12-4 Follow-up sepsis and necrotizing fasciitis. No complaints. Per nursing, minimal trach secretions. Urine output 350 mL. Tolerating trach collar. Discussed with general surgery, no further debridement at this time pending plastic surgery evaluation 12-5 Interval history: Patient sleepy opens eyes to voice. No significant complaints. Per nursing staff had 11 beat run of nonsustained V. tach. Tolerating trach collar. 12-6 Interval history: No acute changes overnight per nursing staff. Patient opens eyes to voice 12-7 TRANSFERRED TO MY FLOOR TODAY AWAKE AND ALERT ON TRACH COLLAR SEEN BY DR MEDINA OF PLASTICS WHO RECOMMENDED CONTINUE WOUND VAC SP NECROTIZING FASCIITIS SP SEPTIC SHOCK THAT RESPONDED WELL TO BROAD SPECTRUM ANTIBIOTICS UTI WITH PSEUDOMONAS PNEUMONIA WITH PSEUDOMONAS? ASPIRATION REMAINS ON DIFLUCAN AND ZOSYN THROUGH 12-10 AM LABS PT AND OT Physical Exam Vital signs: Vital Signs 01/24/18 15:50 01/24/18 16:00 01/24/18 16:50 Temperature Pulse Rate 88 86 82 Respiratory Rate 21 22 20 Blood Pressure 156/69 H 159/72 H Pulse Oximetry 100 100 100 01/24/18 17:00 01/24/18 17:50 01/24/18 18:00 Temperature Pulse Rate 86 89 88 Respiratory Rate 21 20 19 Blood Pressure 185/79 H Pulse Oximetry 100 99 98 01/24/18 18:41 01/24/18 19:00 01/24/18 19:50 Temperature 98.4 F Pulse Rate 91 H 77 88 Respiratory Rate 22 22 22 Blood Pressure 161/70 H 144/65 H Pulse Oximetry 99 100 99 01/24/18 20:00 01/24/18 20:50 01/24/18 21:00 Temperature Pulse Rate 86 88 88 Respiratory Rate 23 25 H 20 Blood Pressure 143/68 H Pulse Oximetry 98 100 100 01/24/18 21:50 01/24/18 21:55 01/24/18 22:00 Temperature Pulse Rate 79 78 Respiratory Rate 27 H 26 H Blood Pressure 156/69 H Pulse Oximetry 98 100 99 01/24/18 22:50 01/24/18 23:00 01/24/18 23:50 Temperature Pulse Rate 77 80 77 Respiratory Rate 25 H 23 21 Blood Pressure 139/62 148/65 H Pulse Oximetry 100 100 100 01/25/18 00:00 01/25/18 00:50 01/25/18 01:00 Temperature Pulse Rate 79 77 87 Respiratory Rate 19 20 37 H Blood Pressure 156/67 H Pulse Oximetry 100 99 100 01/25/18 01:50 01/25/18 02:00 01/25/18 02:50 Temperature Pulse Rate 77 79 81 Respiratory Rate 21 20 22 Blood Pressure 150/65 H 154/72 H Pulse Oximetry 100 100 99 01/25/18 03:00 01/25/18 03:50 01/25/18 04:00 Temperature Pulse Rate 86 79 81 Respiratory Rate 26 H 20 20 Blood Pressure 154/69 H Pulse Oximetry 100 100 100 01/25/18 05:45 01/25/18 08:00 01/25/18 08:51 Temperature 97.7 F 97.9 F Pulse Rate 84 87 Respiratory Rate 20 18 Blood Pressure 162/87 H 143/68 H Pulse Oximetry 99 96 96 01/25/18 12:00 Temperature 97.4 F L Pulse Rate 82 Respiratory Rate 18 Blood Pressure 150/76 H Pulse Oximetry 96 Intake & Output 01/24/18 01/25/18 01/25/18 18:59 06:59 18:59 Intake Total 1521 / 1521 833 / 833 50 / 50 Output Total 1100 / 1100 1250 / 1250 Balance 421 / 421 -417 / -417 50 / 50 Weight 75.3 kg Intake: IV 100 / 100 100 / 100 50 / 50 Zosyn 3.375 GM Premix 50 ML @ 100 / 100 100 / 100 50 / 50 100 mls/hr IV.SIG Q6H RICARDO Rx#: [id number] Tube Feeding 821 / 821 273 / 273 Tube Irrigant 60 / 60 Water Bolus Amount 600 / 600 400 / 400 Output: Stool 200 / 200 500 / 500 Urine Amount (Catheter) 900 / 900 750 / 750 Indwelling Urethral Catheter 900 / 900 750 / 750 Other: Mode Setting Posterior Sacrum Continuous Continuous Continuous Narrative: General: Cachectic middle-aged woman, on T-piece via tracheostomy. Lungs: Supplemental oxygen through tracheostomy. Good bilateral breath sounds, SOME COARSE BS BL Heart: RRR. S1, S2 NO S3 OR S4 Abdomen: Soft, no guarding, nondistended, nontender, few bowel sounds Back: Wound VAC remains in place over lower left hip and trunk. Surrounding skin is mildly erythematous. Musculoskeletal: Warm, well perfused, status post below-knee amputation right side, well-healed. Neurological: Sleepy but opens eyes to voice. - Urinary Catheter Management Indwelling Urethral Catheter Cath placed during this visit: yes Reason for continuing: Acute urinary retention Insertion date: 01/13/18 Insertion time: 01:00 1 Cath placed during this visit: yes, but has since been removed by the nurse Urethral indwelling: Yes Reason for continuing: Severe pressure ulcer/wound Insertion date: 12/15/17 Removal date: 01/13/18 Removal time: 01:00 Results - Labs CBC & Chem 7: 01/23/18 04:59 01/24/18 06:03 Laboratory Results - last 24 hr 01/24/18 01/24/18 01/25/18 15:45 22:00 03:56 POC Glucose 173 H 195 H 188 H 01/25/18 08:05 POC Glucose 100 - Imaging Impressions Abdomen X-Ray 01/25/18 03:09 CONCLUSION: Feeding tube as above. - Procedures lumbar wd debridement with wd vac Assessment and Plan - Assessment (1) MARIO (acute kidney injury) Code(s): N17.9 - Acute kidney failure, unspecified Status: Acute (2) Hypernatremia Code(s): E87.0 - Hyperosmolality and hypernatremia Status: Acute (3) Type 2 diabetes mellitus with hyperosmolar nonketotic hyperglycemia Code(s): E11.01 - Type 2 diabetes mellitus with hyperosmolarity with coma Status: Acute (4) Necrotizing fasciitis of pelvic region and thigh Code(s): M72.6 - Necrotizing fasciitis Status: Acute - Plan Acute metabolic encephalopathy Resolved Septic Shock- improving With necrotizing soft tissue infection Myocardial dysfunction secondary to septic shock Fluid overload Tapered levophed off Continue with IV Zosyn THROUGH 12-10 Acute hypoxic and hypercarbic respiratory failure- persistent - s/p Trach in OR 12/28/17. -Tolerating T-piece REMAINS ON TRACH/T-PIECE Diabetes mellitus type II, initially uncontrolled, insulin-dependent, no active complications Now currently blood sugar better controlled. - Med scale SSI. - Follow potassium and magnesium closely -Continue with current basal insulin Levemir 16 Units BID Hematology/Infectious Disease Septic Shock Necrotizing soft tissue infection CAUTI, PSAE PNA, PSAE - Follow white count and platelet count closely. - Continue Zosyn. Continue Diflucan for fungal coverage. Stop Flagyl per infectious disease Dr. Song - General surgery service following back wounds, scheduling debridement. Plastic for possible grafting vac change this week, possible vac removal soon and transition to wet to dry per general surgery PLASTICS NOT WANTING TO DO SURGERY YET- CONTINUE VAC GI Acute protein calorie malnutrition- severe - Tube feeds infusing, tolerated. As needed IV fluids - Follow prealbumin weekly - Dignishield placed to protect wounds from soilage. - Follow prealbumin weekly. - refused PEG (change NG every 14 days) Acute kidney injury resolved Mild hyperkalemia now resolved. - Tristan required for hourly urine output and to protect perineal region. - May ultimately require colostomy to protect this region. -Per previous provider cannot think of a solution to the problem of continuous wound soilage. Refused colostomy HEME Left upper extremity DVT Anemia. Improved - DVT left internal jugular, subclavian, axillary and distal arm veins. - Cannot anticoagulate secondary to blood loss anemia requiring blood transfusion, frequent surgeries. - Arterial inflow into the left arm and hand is good. Hyperkalemiadose of Kayexalate, patient not on scheduled potassium supplements. Prophylaxis - Pepcid for GI ulcer prophylaxis - SCDs for DVT prophylaxis - chemical DVT prophylaxis with Lovenox okayed by general surgery Lines: PIV Overall impression: This woman was initially critically ill and in septic shock with necrotizing fasciitis emanating from a deep chronic sacral decubitus ulcer. She has required multiple OR trips for I&D and VAC changes. Family request continued aggressive care. She had a recurrent bout of severe sepsis on 01/14 but after 2 debridements she is very much improved. Now on T-piece, hemodynamically stable, Code Status: FULL CODE Discussed Condition With: RN AND PT AND CM Discharge Planning: PENDING SURGICAL AND ID CLEARANCE WILL NEED SNF PROBABLY OR [facility] AT DISCHARGE DUE TO COMPLEXITY OF CARE
[2018-01-25] MEDS: Enoxaparin Inj 30 MG/0.3 ML Syringe SQ SCH (17:26)
[2018-01-26] MEDS: Piperacil/Tazo 3.375 GM Premix 50 ML IV.SIG SCH ×4 (00:47→18:02)
[2018-01-26] MEDS: Insulin NovoLIN Regular Correctional Sugar Inj SQ SCH ×4 (03:27→21:54)
[2018-01-26] MEDS: Oral Hygiene Kit OROPHARYNG SCH ×3 (03:28→16:16)
[2018-01-26 07:16] LABS: Prothrombin Time 9.9 sec (9.8-11.6)
[2018-01-26 07:37] LABS: Alanine Aminotransferase 43 U/L (10-53); Albumin 2.9 g/dL (3.4-5.0); Anion Gap 8 meq/L (5-15); Aspartate Aminotransferase 60 U/L (15-37); Blood Urea Nitrogen 32 mg/dL (7-18); Calcium 8.4 mg/dL (8.5-10.1); Carbon Dioxide 25.3 meq/L (21.0-32.0); Chloride 109 meq/L (98-107); Glomerular Filtration Rate 83 mL/min (>89); Glucose,Random 89 mg/dL (74-106); Magnesium 2.4 mg/dL (1.5-2.5); Phosphorus 3.1 mg/dL (2.5-4.9); Potassium 4.4 meq/L (3.5-5.1); Sodium 142 meq/L (136-145)
[2018-01-26 07:42] LABS: Baso # (Auto) 0.1 th/mm3 (0.0-0.2); Baso % (Auto) 0.8 % (0.0-2.0); Eos # (Auto) 0.3 th/mm3 (0.0-0.4); Eos % (Auto) 3.2 % (0.0-4.0); Hematocrit 25.4 % (35.0-46.0); Hemoglobin 8.4 gm/dL (11.6-15.3); Lymph # (Auto) 1.8 th/mm3 (1.0-4.8); Lymph % (Auto) 17.7 % (9.0-44.0); Mean Corpuscular HGB Conc 32.9 % (32.0-36.0); Mean Corpuscular Hemoglobin 31.5 pg (27.0-34.0); Mean Corpuscular Volume 95.6 fL (80.0-100.0); Mean Platelet Volume 10.6 fL (7.0-11.0); Mono # (Auto) 0.4 th/mm3 (0.0-0.9); Mono % (Auto) 3.9 % (0.0-8.0); Neut # (Auto) 7.6 th/mm3 (1.8-7.7); Neut % (Auto) 74.4 % (16.0-70.0); Platelet Count 256 th/mm3 (150-450); Red Blood Count 2.66 mil/mm3 (4.00-5.30); Red Cell Distribution Width 22.1 % (11.6-17.2); White Blood Count 10.2 th/mm3 (4.0-11.0)
[2018-01-26 07:52] LABS: Alkaline Phosphatase 1095 U/L (45-117); Free T4 (Free Thyroxine) 0.92 ng/dL (0.76-1.46); Total Protein 8.5 g/dL (6.4-8.2)
[2018-01-26] MEDS: Lisinopril 5 MG Tablet NG/OG SCH (09:25)
[2018-01-26] MEDS: hydrALAZINE 50 MG Tablet NG/OG SCH ×3 (09:25→18:02)
[2018-01-26] MEDS: Lansoprazole ODT 15 MG Tablet NG/OG SCH (09:25)
[2018-01-26] MEDS: Insulin Detemir Inj 1,000 UNIT/10 ML Vial SQ SCH ×2 (09:25→21:54)
[2018-01-26] MEDS: Senna/Docusate Sodium 8.6/50 MG Tablet NG/OG SCH ×2 (09:26→21:53)
[2018-01-26] MEDS: Lactic Acid (Ammonium Lactate) 12% Lotion 225 GM Bottle TOPICAL SCH ×2 (09:27→21:54)
[2018-01-26] MEDS: Chlorhexidine 0.12% Oral Kit 15 ML UDC OROPHARYNG SCH ×2 (09:27→21:54)
[2018-01-26] MEDS: Metoprolol Tartrate 50 MG Tablet NG/OG SCH ×2 (09:28→21:53)
[2018-01-26] MEDS: Collagenase Oint 30 GM Tube TOPICAL SCH (09:28)
--- NOTE | 2018-01-26 15:48 | P.PNIM ---
Subjective Interval history: This 52-year-old woman with long-standing uncontrolled diabetes mellitus and severe peripheral arterial disease related to a long-term heavy smoking history was found down at her home and initial blood glucose was 610. Her lower back and buttocks was exquisitely tender and a mid line stage IV sacral decubitus was oozing purulent material and inflamed and the surrounding soft tissue. White count was not elevated but 90% neutrophils. Temperature 97 degrees. Moderately encephalopathic though conversant. X-rays revealed no fractures in the pelvis but CAT scan demonstrated extensive subcutaneous air emanating in both directions left and right from the mid sacral region. This is clearly necrotizing fasciitis or some other gas-forming infection and the woman is critically ill. She received vancomycin, Zosyn, and clindamycin antibiotic therapy as quickly as possible and was transferred to the ICU for ongoing resuscitation. Because of worsening hemodynamic stability she required intubation and mechanical ventilation followed by central line placement on arrival to the ICU. Insulin drip infusion was started in the emergency department and glucose had declined into the low 400s. She was not in ketoacidosis but lactic acid was elevated at 3.1. General surgery and orthopedic surgery were consulted for recommendations and it was felt that this woman was too unstable to tolerate an operative procedure immediately. We continue her ongoing resuscitation and trial in the ICU at this stage. 12/16: Following aggressive resuscitation yesterday for the treatment of severe hyperglycemia, septic shock, respiratory failure, metabolic acidosis, acute kidney injury, the patient went to the operating room with an extensive wide debridement bilateral gluteal and left thigh soft tissue and muscle. Primary antibiotic coverage at this point is vancomycin, cefepime, clindamycin. The patient started to make urine late yesterday afternoon and has continued to acceptable output since. Lactic acidosis is 2.0 this morning but metabolic acidosis persists despite bicarb drip. She remains on vasopressor support and hemodynamically unstable. 12/17: s/p debridement of large nec fasc wound. remains in shock today. also very hypoglycemic requiring multiple D50 amps overnight. 12/18: back in worsening shock. vasopressor support higher. required 2L crystalloid overnight and additional 1L and 500cc albumin today. ivc completely flat on bedside echo. LVEF hyperdynamic. no pericardial effusion. spoken with gen surg. plan to go back early to eval for worsening necrosis. fio2 also up to 100% and peep 10- hypoxic, likely early ARDS. 12/19: clinically doing better. still in shock on vasopressors, but requirements are lower and lactate cleared. Cr slowly uptrending. SVV still 19% today and appears to be volume responsive. gen surgery ordered 2 units prbc for falling hgb in the setting of blood loss with surgical intervention yesterday. fio2 improving. glycemic control also improving. 12/20: Markedly impaired oxygenation persists. Still requiring elevated end expiratory pressure. Nutritional support continues but she remains catabolic. It will be difficult to keep up with her nutritional needs. 12/21: Continued severe sepsis requiring vasopressor support and mechanical ventilation. Oxygenation remains impaired and smoldering metabolic acidosis persists. Despite hemodynamic instability the patient's only hope for survival is with infection source control through further debridement. Clearly a greatly increased risk however for any procedure. 12/22: Persistent septic shock course requiring vasopressor support and regular debridement. Good antibiotic coverage but she continues to require adjustment of ventilator, hemodynamic support drugs, antibiotics, intravenous fluids. Her nutritional status was quite depleted on arrival and continues to deteriorate despite adjuvant nutrition. 12/23: Patient continues septic course. She has developed venous clot throughout her left internal jugular subclavian and axillary vein system. Not a candidate for full anticoagulation because of need for frequent surgical debridement. We will pull out the catheter today and placing In the right subclavian route. 12/24 remains critically ill and septic remains on Rj-Synephrine at 50 mcg/kg/ min. WBC count increasing 20 6K today. Antibiotics have been changed by ID. Diflucan added for Talia UTI. Plan for OR today per surgery 12/25: Went to OR yesterday, s/p Incision, drainage with excisional debridement of back, buttock, thigh, and VAC change. Main septic White count increasing 31, 000 today, remains on pressors vasopressin and Rj-Synephrine. 12/26: Remains critical remains on vasopressin to maintain blood pressure and map above 65, currently off Rj-Synephrine. Remains severely fluid overloaded approximately 20 kg up. Despite pressor use will start IV diuretics to achieve negative fluid balance 12/27: Intubated sedated but more awake follows some commands. Hemoglobin down to 6.4, 2 g dropped, receiving 2 units of PRBC. No obvious bleeding noted. Currently had been weaned off the pressors. Or planned for tomorrow again 12/28: OR today for wound VAC change and I&D, possible tracheostomy. Potassium is 2.6 getting replaced. Hemoglobin stable. Remains off pressors. Urine output almost 8 L with forced diuresis 12/29: Status post OR for wound VAC change in tracheostomy yesterday. Getting for his diuresis urine output more than 4 L in 24 hours. Remains intubated sedated intermittently follows commands. Plan for I&D wound VAC change again on Saturday 12/30: Remains intubated sedated more stable. Urine output remains excellent with diuresis. Plan for OR in a.m. for further I&D and VAC change 12/31: Patient remains intubated plan for OR today with Dr. Muir for further I&D and wound VAC change. Making urine more than 4 L in 24 hours with diuresis. Getting closer to admission weight. Potassium 3.3 getting replacement 01/01: Remains intubated sedated failing CPAP due to low tidal volumes. Status post OR yesterday for the I&D tomorrow planned by general surgery. Urine output 3 L in 24 hours 01/02: Potassium being replaced. Ready for OR today. Return from the OR with stable hemodynamics on mechanical ventilation. 01/03: Attempted spontaneous breathing trials today and converted to T piece. We will continue this method of weaning. Nutrition infusing and well- tolerated. Severity of wound will require a lengthy hospitalization. 01/04: Nasogastric tube is out. She is much more alert and we will try a swallow evaluation before replacing. Contraction alkalosis is developing with diuretics, will add a carbonic anhydrase inhibitor. 01/05: Breathing comfortably on T-piece. Failed swallow eval. Will need to replace nasogastric tube or Dobbhoff for nutrition. 01/06: Alert interactive. Failed swallow eval possibly due to the distortion of the trach cuff. Continue feeding through Dobbhoff tube. Patient is stable to go to floor now. Fentanyl drip converted to fentanyl patch. Adequately diuresed of post edema, discontinue diuretics and replace potassium. After K replaced add lisinopril now that GFR back to normal. 01/07 - 01/13: Patient undergoing care on floor with continuous tube feeding and serial surgical debridements. Wound VAC in place. 01/14: Patient developed temperature of 103 with sustained tachycardia and obtundation. She clearly appears septic. Cultures have been ordered by the floor staff and resuscitation with isotonic crystalloid has begun in the ICU. Her abdomen is soft and her chest x-ray is clear. She has no indwelling lines. The likely culprit is the depths of the wound and/or stool contamination. 01/15: Patient underwent debridement of the lumbar wounds yesterday. She is still requiring vasopressor therapy to support her blood pressure and mechanical ventilation for respiratory failure. She remains critically ill. 01/16: Remains on mechanical ventilation via tracheostomy. Tolerating CPAP trial. Off pressors since yesterday. 01/17: Remains on mechanical ventilation via tracheostomy. Tolerating CPAP trial with pressure support +10 however gets tachypneic on lowering pressor support. 01/18: Debridement/washout of lumbar wounds done today. Remains on mechanical ventilation via tracheostomy. 01/19: She tolerated her debridement yesterday well and is back on spontaneous breathing trials this morning at 10/5. She looks comfortable and we will try to get her to T-piece today. 01/20: Tolerating T-piece well and continues after 24 hours and a nonlabored pattern. Glucose control remains poor; she became intolerant during her recent sepsis and we are trying to find a new baseline regimen. 12-3 Follow-up sepsis and necrotizing fasciitis. Consulted by critical care medicine for transfer care medical management. Chart reviewed. Seen in [facility]. Has no complaints awake and ff commands. Per RN, respiratory distress in PACU but did not require vent. She remains on trach collar. Minimal trach secretions. Urine output of 275 mL overnight. 12-4 Follow-up sepsis and necrotizing fasciitis. No complaints. Per nursing, minimal trach secretions. Urine output 350 mL. Tolerating trach collar. Discussed with general surgery, no further debridement at this time pending plastic surgery evaluation 12-5 Interval history: Patient sleepy opens eyes to voice. No significant complaints. Per nursing staff had 11 beat run of nonsustained V. tach. Tolerating trach collar. 12-6 Interval history: No acute changes overnight per nursing staff. Patient opens eyes to voice 12-7 TRANSFERRED TO MY FLOOR TODAY AWAKE AND ALERT ON TRACH COLLAR SEEN BY DR MEDINA OF PLASTICS WHO RECOMMENDED CONTINUE WOUND VAC SP NECROTIZING FASCIITIS SP SEPTIC SHOCK THAT RESPONDED WELL TO BROAD SPECTRUM ANTIBIOTICS UTI WITH PSEUDOMONAS PNEUMONIA WITH PSEUDOMONAS? ASPIRATION REMAINS ON DIFLUCAN AND ZOSYN THROUGH 12-10 AM LABS PT AND OT 12-8 STATES SHE WANTS TO GO HOME HAS NGT FOR TUBE FEEDS HAS TRACH HAS WOUND VAC HAS STALLWORTH HAS RECTAL TUBE EXPLAINED SHE IS NOT READY TO GO HOME DW RN AND PT AND CM AM LABS FOUND TO BE HYPOTHYROID WILL PLACE ON REPLACEMENT Physical Exam Vital signs: Vital Signs 01/25/18 16:00 01/25/18 20:00 01/25/18 20:50 Temperature 98 F 98.8 F Pulse Rate 89 96 H Respiratory Rate 18 19 18 Blood Pressure 140/70 130/69 Pulse Oximetry 98 97 01/25/18 22:40 01/25/18 23:15 01/26/18 00:00 Temperature 98.6 F Pulse Rate 82 Respiratory Rate 19 18 Blood Pressure 139/67 Pulse Oximetry 97 99 01/26/18 02:00 01/26/18 04:00 01/26/18 04:21 Temperature 97.7 F Pulse Rate 85 Respiratory Rate 18 17 Blood Pressure Pulse Oximetry 98 98 01/26/18 06:00 01/26/18 08:00 01/26/18 08:08 Temperature 97.4 F L Pulse Rate 88 Respiratory Rate 18 13 Blood Pressure 152/65 H Pulse Oximetry 99 99 01/26/18 12:00 Temperature 96.8 F L Pulse Rate 82 Respiratory Rate 13 Blood Pressure 141/69 H Pulse Oximetry 100 Intake & Output 01/25/18 01/26/18 01/26/18 18:59 06:59 18:59 Intake Total 100 / 100 100 / 100 50 / 50 Output Total 1450 / 1450 Balance 100 / 100 -1350 / -1350 50 / 50 Weight 75.9 kg Intake: IV 100 / 100 100 / 100 50 / 50 Zosyn 3.375 GM Premix 50 ML @ 100 / 100 100 / 100 50 / 50 100 mls/hr IV.SIG Q6H [facility] Rx#: [id number] Output: Urine 650 / 650 Stool 800 / 800 Other: Mode Setting Posterior Sacrum Continuous Continuous Continuous Date of Last Bowel Movement 01/26/18 Narrative: General: Cachectic middle-aged woman, on T-piece via tracheostomy. Lungs: Supplemental oxygen through tracheostomy. Good bilateral breath sounds, SOME COARSE BS BL Heart: RRR. S1, S2 NO S3 OR S4 Abdomen: Soft, no guarding, nondistended, nontender, few bowel sounds Back: Wound VAC remains in place over lower left hip and trunk. Surrounding skin is mildly erythematous. Musculoskeletal: Warm, well perfused, status post below-knee amputation right side, well-healed. Neurological: Sleepy but opens eyes to voice. - Urinary Catheter Management Indwelling Urethral Catheter Cath placed during this visit: yes Reason for continuing: Acute urinary retention Insertion date: 01/13/18 Insertion time: 01:00 1 Cath placed during this visit: yes, but has since been removed by the nurse Urethral indwelling: Yes Reason for continuing: Severe pressure ulcer/wound Insertion date: 12/15/17 Removal date: 01/13/18 Removal time: 01:00 Results - Labs CBC & Chem 7: 01/26/18 06:19 01/26/18 06:19 Laboratory Results - last 24 hr 01/25/18 01/25/18 01/26/18 17:25 20:08 03:05 WBC RBC Hgb Hct MCV MCH MCHC RDW Plt Count MPV Neut % (Auto) Lymph % (Auto) [place] % (Auto) Eos % (Auto) Baso % (Auto) Neut # (Auto) Lymph # (Auto) [place] # (Auto) Eos # (Auto) Baso # (Auto) WBC Differential Differential Comment PT INR Sodium Potassium Chloride Carbon Dioxide Anion Gap BUN Creatinine Estimated GFR POC Glucose 85 89 108 Random Glucose Calcium Phosphorus Magnesium Total Bilirubin AST ALT Alkaline Phosphatase Total Protein Albumin TSH Free T4 01/26/18 01/26/18 01/26/18 06:19 06:19 06:19 WBC 10.2 RBC 2.66 L Hgb 8.4 L Hct 25.4 L MCV 95.6 MCH 31.5 MCHC 32.9 RDW 22.1 H Plt Count 256 MPV 10.6 Neut % (Auto) 74.4 H Lymph % (Auto) 17.7 [place] % (Auto) 3.9 Eos % (Auto) 3.2 Baso % (Auto) 0.8 Neut # (Auto) 7.6 Lymph # (Auto) 1.8 [place] # (Auto) 0.4 Eos # (Auto) 0.3 Baso # (Auto) 0.1 WBC Differential . Differential Comment Auto diff final PT 9.9 INR 1.0 Sodium 142 Potassium 4.4 Chloride 109 H Carbon Dioxide 25.3 Anion Gap 8 BUN 32 H Creatinine 0.73 Estimated GFR 83 L POC Glucose Random Glucose 89 Calcium 8.4 L Phosphorus 3.1 Magnesium 2.4 Total Bilirubin 0.5 AST 60 H ALT 43 Alkaline Phosphatase 1095 H Total Protein 8.5 H Albumin 2.9 L TSH 3.790 H Free T4 0.92 01/26/18 08:13 WBC RBC Hgb Hct MCV MCH MCHC RDW Plt Count MPV Neut % (Auto) Lymph % (Auto) [place] % (Auto) Eos % (Auto) Baso % (Auto) Neut # (Auto) Lymph # (Auto) [place] # (Auto) Eos # (Auto) Baso # (Auto) WBC Differential Differential Comment PT INR Sodium Potassium Chloride Carbon Dioxide Anion Gap BUN Creatinine Estimated GFR POC Glucose 105 Random Glucose Calcium Phosphorus Magnesium Total Bilirubin AST ALT Alkaline Phosphatase Total Protein Albumin TSH Free T4 - Imaging ITS Impressions Femur X-Ray 12/15/17 07:05 CONCLUSION: No fracture is identified. There is extensive soft tissue air in the right gluteal region and extending into the proximal and mid posterior thigh. The soft tissue air suggests an open wound. Pelvis X-Ray 12/15/17 07:05 CONCLUSION: No fracture is identified. However, there is extensive soft tissue air in the left gluteal region and left proximal thigh. Pelvis CT 12/15/17 07:52 CONCLUSION: 1. No fracture is identified. 2. Extensive subcutaneous and soft tissue gas bilaterally, left greater than right. It is most severe in the left gluteal region and extends into the proximal posterior thigh. The soft tissue air dissects through the gluteal musculature. There is adjacent subcutaneous edema. Foot X-Ray 12/18/17 00:00 CONCLUSION: Remote small avulsion fracture at the fifth toe. No acute bony abnormality. Venous Doppler Study 12/22/17 00:00 CONCLUSION: Extensive deep vein thrombosis of the left upper extremity. Chest X-Ray 01/21/18 00:00 CONCLUSION: 1. Feeding tube distal tip is in the gastric fundus. 2. Otherwise, stable examination with suspected small left pleural effusion and bilateral atelectasis versus consolidation at the lung bases. Abdomen X-Ray 01/25/18 03:09 CONCLUSION: Feeding tube as above. - Procedures lumbar wd debridement with wd vac Assessment and Plan - Assessment (1) MARIO (acute kidney injury) Code(s): N17.9 - Acute kidney failure, unspecified Status: Acute (2) Hypernatremia Code(s): E87.0 - Hyperosmolality and hypernatremia Status: Acute (3) Type 2 diabetes mellitus with hyperosmolar nonketotic hyperglycemia Code(s): E11.01 - Type 2 diabetes mellitus with hyperosmolarity with coma Status: Acute (4) Necrotizing fasciitis of pelvic region and thigh Code(s): M72.6 - Necrotizing fasciitis Status: Acute - Plan Acute metabolic encephalopathy Resolved Septic Shock- improving With necrotizing soft tissue infection Myocardial dysfunction secondary to septic shock Fluid overload Tapered levophed off Continue with IV Zosyn THROUGH 12-10 Acute hypoxic and hypercarbic respiratory failure- persistent - s/p Trach in OR 12/28/17. -Tolerating T-piece REMAINS ON TRACH/T-PIECE Diabetes mellitus type II, initially uncontrolled, insulin-dependent, no active complications Now currently blood sugar better controlled. - Med scale SSI. - Follow potassium and magnesium closely -Continue with current basal insulin Levemir 16 Units BID Hematology/Infectious Disease Septic Shock Necrotizing soft tissue infection CAUTI, PSAE PNA, PSAE - Follow white count and platelet count closely. - Continue Zosyn. Continue Diflucan for fungal coverage. Stop Flagyl per infectious disease Dr. Song - General surgery service following back wounds, scheduling debridement. Plastic for possible grafting vac change this week, possible vac removal soon and transition to wet to dry per general surgery PLASTICS NOT WANTING TO DO SURGERY YET- CONTINUE VAC GI Acute protein calorie malnutrition- severe - Tube feeds infusing, tolerated. As needed IV fluids - Follow prealbumin weekly - Dignishield placed to protect wounds from soilage. - Follow prealbumin weekly. - refused PEG (change NG every 14 days) Acute kidney injury resolved Mild hyperkalemia now resolved. - Stallworth required for hourly urine output and to protect perineal region. - May ultimately require colostomy to protect this region. -Per previous provider cannot think of a solution to the problem of continuous wound soilage. Refused colostomy HEME Left upper extremity DVT Anemia. Improved - DVT left internal jugular, subclavian, axillary and distal arm veins. - Cannot anticoagulate secondary to blood loss anemia requiring blood transfusion, frequent surgeries. - Arterial inflow into the left arm and hand is good. Hyperkalemiadose of Kayexalate, patient not on scheduled potassium supplements. HYPOTHYROIDISM START ON SYNTHROID Prophylaxis - Pepcid for GI ulcer prophylaxis - SCDs for DVT prophylaxis - chemical DVT prophylaxis with Lovenox okayed by general surgery Lines: PIV Overall impression: This woman was initially critically ill and in septic shock with necrotizing fasciitis emanating from a deep chronic sacral decubitus ulcer. She has required multiple OR trips for I&D and VAC changes. Family request continued aggressive care. She had a recurrent bout of severe sepsis on 01/14 but after 2 debridements she is very much improved. Now on T-piece, hemodynamically stable, Code Status: FULL CODE Discussed Condition With: RN AND PT AND CM Discharge Planning: PENDING SURGICAL AND ID CLEARANCE WILL NEED SNF PROBABLY OR [facility] AT DISCHARGE DUE TO COMPLEXITY OF CARE
[2018-01-26] MEDS: Enoxaparin Inj 30 MG/0.3 ML Syringe SQ SCH (18:02)
[2018-01-27] MEDS: Oral Hygiene Kit OROPHARYNG SCH ×4 (00:39→17:51)
[2018-01-27] MEDS: Piperacil/Tazo 3.375 GM Premix 50 ML IV.SIG SCH ×4 (01:54→18:36)
[2018-01-27] MEDS: Insulin NovoLIN Regular Correctional Sugar Inj SQ SCH ×4 (03:00→21:52)
[2018-01-27 06:54] LABS: Baso # (Auto) 0.1 th/mm3 (0.0-0.2); Baso % (Auto) 0.9 % (0.0-2.0); Eos # (Auto) 0.4 th/mm3 (0.0-0.4); Hematocrit 24.1 % (35.0-46.0); Lymph % (Auto) 21.7 % (9.0-44.0); Mean Corpuscular HGB Conc 33.2 % (32.0-36.0); Mean Corpuscular Hemoglobin 31.7 pg (27.0-34.0); Mean Corpuscular Volume 95.3 fL (80.0-100.0); Mean Platelet Volume 10.6 fL (7.0-11.0); Mono # (Auto) 0.4 th/mm3 (0.0-0.9); Mono % (Auto) 4.9 % (0.0-8.0); Neut # (Auto) 6.2 th/mm3 (1.8-7.7); Neut % (Auto) 68.5 % (16.0-70.0); Platelet Count 221 th/mm3 (150-450); Red Blood Count 2.53 mil/mm3 (4.00-5.30); Red Cell Distribution Width 21.4 % (11.6-17.2); White Blood Count 9.1 th/mm3 (4.0-11.0)
[2018-01-27 07:26] LABS: Albumin 2.8 g/dL (3.4-5.0); Anion Gap 6 meq/L (5-15); Aspartate Aminotransferase 55 U/L (15-37); Blood Urea Nitrogen 36 mg/dL (7-18); Calcium 8.7 mg/dL (8.5-10.1); Carbon Dioxide 26.3 meq/L (21.0-32.0); Chloride 108 meq/L (98-107); Glomerular Filtration Rate 89 mL/min (>89); Glucose,Random 62 mg/dL (74-106); Magnesium 2.4 mg/dL (1.5-2.5); Potassium 4.2 meq/L (3.5-5.1); Sodium 140 meq/L (136-145)
[2018-01-27 07:43] LABS: Alanine Aminotransferase 41 U/L (10-53); Alkaline Phosphatase 974 U/L (45-117); Phosphorus 3.4 mg/dL (2.5-4.9); Total Protein 8.1 g/dL (6.4-8.2)
--- NOTE | 2018-01-27 10:23 | XR ---
EXAM DATE: 01/27/2018 10:20 AM EST AGE/SEX: 52 years / Female INDICATIONS: Shortness of breath and cough. CLINICAL DATA: This is the patient's subsequent encounter. Patient reports that signs and symptoms h ave been present for 2 days and indicates a pain score of 0/10. MEDICAL/SURGICAL HISTORY: Hypertension. Diabetes mellitus type II. None. [place] [facility] [place]. . FINDINGS: Mild patchy airspace disease remains evident. There is no significant consolidating infiltrate. Heart and mediastinal structures are stable. Tracheostomy tube and nasogastric tube are in stable position. CONCLUSION: Persistent mild bilateral airspace disease without significant consolidation. Otherwise stable chest. Electronically signed by: Aries Sevilla MD 01/27/2018 10:21 AM EST
[2018-01-27 11:58] LABS: Hemoglobin A1c 5.7 % (4.3-6.0)
--- NOTE | 2018-01-27 13:15 | P.PNIM ---
Subjective Interval history: Patient had an episode of acute shortness of breath this morning. Discussed with RN. Tube feeds suctioned from the trach. Patient reevaluated. No longer short of breath. Chest x-ray stable. Physical Exam Vital signs: Last Vital Signs Temp 97.4 F L 01/27/18 08:00 Pulse 87 01/27/18 08:00 Resp 18 01/27/18 08:00 BP 127/70 01/27/18 08:00 Pulse Ox 94 L 01/27/18 08:00 Intake & Output 01/25/18 01/26/18 01/27/18 01/28/18 06:59 06:59 06:59 06:59 Intake Total 2354 / 2354 200 / 200 200 / 200 50 / 50 Output Total 2350 / 2350 1450 / 1450 3330 / 3330 Balance 4 / 4 -1250 / -1250 -3130 / -3130 50 / 50 Weight 75.3 kg 75.9 kg 69.3 kg Narrative: General: Cachectic middle-aged woman, on T-piece via tracheostomy. Lungs: Supplemental oxygen through tracheostomy. Good bilateral breath sounds, coarse breath sounds bilaterally. No wheezing. Heart: Normal rate and regular rhythm. No significant murmurs. Abdomen: Soft, no guarding, nondistended, nontender, active bowel sounds Back: Wound VAC remains in place over lower left hip and trunk. Urinary Catheter Management Indwelling Urethral Catheter: Cath placed during this visit: yes Urethral indwelling: Yes Reason for continuing: Severe pressure ulcer/wound Insertion date: 01/13/18 Insertion time: 01:00 1: Cath placed during this visit: yes, but has since been removed by the nurse Urethral indwelling: Yes Insertion date: 12/15/17 Removal date: 01/13/18 Removal time: 01:00 Results Labs CBC & Chem 7: 01/27/18 05:31 01/27/18 05:31 Imaging Imaging: Impressions Chest X-Ray 01/27/18 00:00 CONCLUSION: Persistent mild bilateral airspace disease without significant consolidation. Otherwise stable chest. Procedures Procedures: lumbar wd debridement with wd vac Assessment and Plan Plan 52-year-old female previously admitted with septic shock secondary to necrotizing fasciitis. Patient has multiple complications including respiratory failure requiring trach and PEG placement. Sepsis resolving. Acute metabolic encephalopathy Resolved Septic Shock-resolved With necrotizing soft tissue infection Myocardial dysfunction secondary to septic shock Fluid overload Status post Levophed. Continue with IV Zosyn THROUGH 12-10 Acute hypoxic and hypercarbic respiratory failure- persistent Tube feed aspiration today - s/p Trach in OR 12/28/17. -Tolerating T-piece - Hold tube feed. -Dobbhoff came out. Replace and plan to restart tube feed and increase slowly. Keep head of bed greater than 15 degrees Diabetes mellitus type II, initially uncontrolled, insulin-dependent, no active complications Now currently blood sugar better controlled. - Med scale SSI. - Follow potassium and magnesium closely -Continue with current basal insulin Levemir 16 Units BID Hematology/Infectious Disease Septic Shock Necrotizing soft tissue infection CAUTI, PSAE PNA, PSAE - Follow white count and platelet count closely. - Continue Zosyn. Continue Diflucan for fungal coverage. Stop Flagyl per infectious disease Dr. Song - General surgery service following back wounds, scheduling debridement. -Plastic surgery following and recommends continuing wound VAC GI Acute protein calorie malnutrition- severe -Hold tube feeds this morning due to obvious aspiration. Dobbhoff came out today. Discussed with RN to replace. - Follow prealbumin weekly - Dignishield placed to protect wounds from soilage. - Follow prealbumin weekly. - refused PEG (change NG every 14 days) Acute kidney injury resolved Mild hyperkalemia now resolved. - Tristan required for hourly urine output and to protect perineal region. - May ultimately require colostomy to protect this region. -Per previous provider cannot think of a solution to the problem of continuous wound soilage. Refused colostomy HEME Left upper extremity DVT Anemia. Improved - DVT left internal jugular, subclavian, axillary and distal arm veins. - Cannot anticoagulate secondary to blood loss anemia requiring blood transfusion, frequent surgeries. - Arterial inflow into the left arm and hand is good. Subclinical hypothyroidism: -May continue to monitor. Ok to hold off on Synthroid Prophylaxis - Pepcid for GI ulcer prophylaxis - SCDs for DVT prophylaxis - chemical DVT prophylaxis with Lovenox okayed by general surgery Lines: PIV Overall impression: Patient was initially critically ill and in septic shock with necrotizing fasciitis emanating from a deep chronic sacral decubitus ulcer. She has required multiple OR trips for I&D and VAC changes. Family request continued aggressive care. She had a recurrent bout of severe sepsis on 01/14 but after 2 debridements she is very much improved. Now on T-piece, hemodynamically stable, Code Status: FULL CODE Discharge Planning: Patient would likely need SNF or LTAC when ready Progress Note: Quality VTE Deep Vein Thrombosis/Pulmonary Embolism Present on Admission: No
[2018-01-27] MEDS: Chlorhexidine 0.12% Oral Kit 15 ML UDC OROPHARYNG SCH ×2 (14:20→21:49)
[2018-01-27] MEDS: hydrALAZINE 50 MG Tablet NG/OG SCH ×3 (14:21→18:36)
[2018-01-27] MEDS: Lactic Acid (Ammonium Lactate) 12% Lotion 225 GM Bottle TOPICAL SCH ×2 (14:21→21:49)
[2018-01-27] MEDS: Lisinopril 5 MG Tablet NG/OG SCH (14:23)
[2018-01-27] MEDS: Insulin Detemir Inj 1,000 UNIT/10 ML Vial SQ SCH ×3 (14:23→22:05)
[2018-01-27] MEDS: Lansoprazole ODT 15 MG Tablet NG/OG SCH (14:23)
[2018-01-27] MEDS: Senna/Docusate Sodium 8.6/50 MG Tablet NG/OG SCH ×2 (14:23→21:48)
[2018-01-27] MEDS: Metoprolol Tartrate 50 MG Tablet NG/OG SCH ×2 (14:23→21:49)
[2018-01-27] MEDS: Collagenase Oint 30 GM Tube TOPICAL SCH (14:24)
[2018-01-27] MEDS: Enoxaparin Inj 30 MG/0.3 ML Syringe SQ SCH (17:03)
[2018-01-27] MEDS: Morphine Sulfate Inj 2 MG/ML Vial IV.PUSH PRN (17:03)
--- NOTE | 2018-01-27 18:02 | XR ---
EXAM DATE: 01/27/2018 5:57 PM EST AGE/SEX: 52 years / Female INDICATIONS: Evaluate Dobbhoff placement. CLINICAL DATA: This is the patient's initial encounter. Patient reports that signs and symptoms have been present for 1 day and indicates a pain score of 0/10. MEDICAL/SURGICAL HISTORY: Hypertension. Diabetes mellitus type II. None. COMPARISON: [facility] [place], ABDOMEN SINGLE VIEW, 01/25/2018. . FINDINGS: Single frontal view of the abdomen demonstrates a feeding tube in place which is looped in the stomac h and the distal weighted tip in the gastric fundus. There is a nonobstructive bowel gas pattern. CONCLUSION: The feeding tube is looped in the stomach and the distal tip is in the gastric fundus. Electronically signed by: Derek Grover MD 01/27/2018 6:00 PM EST
[2018-01-28] MEDS: Oral Hygiene Kit OROPHARYNG SCH ×4 (00:01→18:26)
[2018-01-28] MEDS: Piperacil/Tazo 3.375 GM Premix 50 ML IV.SIG SCH ×4 (00:48→18:25)
[2018-01-28] MEDS: Insulin NovoLIN Regular Correctional Sugar Inj SQ SCH ×4 (03:07→21:57)
[2018-01-28] MEDS: Lactic Acid (Ammonium Lactate) 12% Lotion 225 GM Bottle TOPICAL SCH ×2 (08:08→21:53)
[2018-01-28] MEDS: Lansoprazole ODT 15 MG Tablet NG/OG SCH (08:09)
[2018-01-28] MEDS: Insulin Detemir Inj 1,000 UNIT/10 ML Vial SQ SCH ×2 (08:09→21:55)
[2018-01-28] MEDS: Lisinopril 5 MG Tablet NG/OG SCH (08:09)
[2018-01-28] MEDS: Metoprolol Tartrate 50 MG Tablet NG/OG SCH ×2 (08:10→21:55)
[2018-01-28] MEDS: hydrALAZINE 50 MG Tablet NG/OG SCH ×3 (08:10→18:26)
[2018-01-28] MEDS: Senna/Docusate Sodium 8.6/50 MG Tablet NG/OG SCH ×2 (10:19→21:55)
[2018-01-28] MEDS: Chlorhexidine 0.12% Oral Kit 15 ML UDC OROPHARYNG SCH ×2 (10:21→21:49)
[2018-01-28] MEDS: Morphine Sulfate Inj 2 MG/ML Vial IV.PUSH PRN (10:39)
[2018-01-28] MEDS: Collagenase Oint 30 GM Tube TOPICAL SCH (10:43)
--- NOTE | 2018-01-28 14:32 | P.PNWCN ---
Wound Care Nurse Consult Description: Received wound management consult for Veraflow Cleanse choice wound VAC dressing to be applied from [facility] G[facility] for general surgery. Communicated with: RN Tita Loaiza [address] [place] [address], rn internal medicine, Doctor Ventura Bazzi and Sherly GAYTAN Recommendation: Wound care will change wound VAC Veraflow cleanse choice on Sunday. Wound Vac - Wound Vac back and L buttock Pressure Setting (mmHg): 125 (low) Mode Setting: Intermittent (Veraflow soak for five minutes when suction is off every 3.5 hours) Drainage Description: Sanguinous Foam type: Other (Veraflow cleanse choice frey foam with wholes and solid frey foam on top) Incision - Patient Status Premedicated for Pain Prior to Dressing Change: Yes - Incision Back and L buttock Incision Assessment: Ongoing Incision Description: Open, Sutures Incision Bed Appearance: [place], Red, Yellow Surrounding Tissue Appearance: [place] Surrounding Tissue Temperature: Cool Drainage Description: Serosanguinous Drainage Amount: Moderate Drainage Odor: No Odor Incision Dressing Status: Changed Incision Cleaning Solution: Saline Incision Packing Type: Woundvac Sponge Primary Dressing: Negative Pressure Wound Dressing - Additional Information Patient seen on for wound VAC Veraflow Cleanse choice application. Removed standard wound VAC dressing in place to back and L buttock areas to reveal Large open wound that extends from lower back to L buttock. Wound was closed previously with sutures in the middle. Entire wound measures ~18cm x ~ 43cm x ~2.5cm. Wound bed presents with ~ 40% dull red muscle tissue, ~20% facia , ~20% slough and ~ 20% red non granulation tissue. Wound drainage is moderate and sero-sanguinous, without foul odor. Wound was cleansed with normal saline and patted dry. Periwound is noted with scattered partial thickness skin loss that presents as adhesive related. Applied Jaime seal to periwound lining wound bed.~ 6 pieces of Frey foam with holes was applied to wound bed. Then applied solid frey foam over frey foam with holes. Periwound partial thickness skin loss was covered with maxorb II before cleanse choice foam was secured in place with VAC drape. Bridged frey solid foam over VAC drape to L anterior thigh. Sensi trac pad was applied to L thigh bridge area. Entire wound VAC dressing was sealed with VAC drape. Started VAC machine with VAC machine settings of 125 mm/Hg low continuous suction 3.5 hours with a break in suction for 5 minute normal saline soaks. Instilled 100 ml of normal saline initially using fill assist. Wound soaked for 5 minutes before suctioning began again.Patient tolerated procedure fairly with complaints of pain with cleansing of wound.
--- NOTE | 2018-01-28 16:18 | P.PNIM ---
Subjective Interval history: No new issues today except for pain on the sacral area. Stable from respiratory standpoint. Tolerating tube feeding. Physical Exam Vital signs: Last Vital Signs Temp 98.1 F 01/28/18 12:00 Pulse 79 01/28/18 12:00 Resp 20 01/28/18 14:23 BP 160/82 H 01/28/18 12:00 Pulse Ox 100 01/28/18 12:00 Intake & Output 01/26/18 01/27/18 01/28/18 01/29/18 06:59 06:59 06:59 06:59 Intake Total 1229 / 1229 763 / 763 528 / 528 Output Total 1700 / 1700 3480 / 3480 5020 / 5020 Balance -471 / -471 -2717 / -2717 -4492 / -4492 Weight 75.9 kg 69.3 kg 67.1 kg Narrative: Narrative: General: Cachectic middle-aged woman, on T-piece via tracheostomy. Lungs: Air movement is fair, coarse breath sounds bilaterally. No wheezing. Heart: Normal rate and regular rhythm. No significant murmurs. Abdomen: Soft, no guarding, nondistended, nontender, active bowel sounds Back: Wound VAC remains in place over lower left hip and trunk. Urinary Catheter Management Indwelling Urethral Catheter: Cath placed during this visit: yes Urethral indwelling: Yes Reason for continuing: Severe pressure ulcer/wound Insertion date: 01/13/18 Insertion time: 01:00 1: Cath placed during this visit: yes, but has since been removed by the nurse Urethral indwelling: Yes Insertion date: 12/15/17 Removal date: 01/13/18 Removal time: 01:00 Results Labs CBC & Chem 7: 01/27/18 05:31 01/27/18 05:31 Imaging Imaging: Impressions Abdomen X-Ray 01/27/18 17:30 CONCLUSION: The feeding tube is looped in the stomach and the distal tip is in the gastric fundus. Procedures Procedures: lumbar wd debridement with wd vac Assessment and Plan (1) Fasciitis: Code(s): M72.9 - Fibroblastic disorder, unspecified Status: Acute Plan 52-year-old female previously admitted with septic shock secondary to necrotizing fasciitis. Patient has multiple complications including respiratory failure requiring trach and PEG placement. Sepsis resolving. Acute metabolic encephalopathy Resolved Septic Shock-resolved With necrotizing soft tissue infection Myocardial dysfunction secondary to septic shock Fluid overload Status post Levophed. Continue with IV Zosyn THROUGH 12- Acute hypoxic and hypercarbic respiratory failure- persistent Tube feed aspiration on 01/27. Dobbhoff came out and was replaced. Currently tolerating Tube feeding. - s/p Trach in OR 12/28/17. -Tolerating T-piece Diabetes mellitus type II, initially uncontrolled, insulin-dependent, no active complications Now currently blood sugar better controlled. - Med scale SSI. - Follow potassium and magnesium closely -Continue with current basal insulin Levemir 16 Units BID Hematology/Infectious Disease Septic Shock Necrotizing soft tissue infection CAUTI, PSAE PNA, PSAE - Follow white count and platelet count closely. - Continue Zosyn. Continue Diflucan for fungal coverage. Stop Flagyl per infectious disease Dr. Song - General surgery service following -Plastic surgery following and recommends continuing wound VAC GI Acute protein calorie malnutrition- severe -Continue tube feeding - Follow prealbumin weekly - Dignishield placed to protect wounds from soilage. - Follow prealbumin weekly. - refused PEG (change NG every 14 days) - Refused colostomy Acute kidney injury resolved Mild hyperkalemia now resolved. - Tristan required for hourly urine output and to protect perineal region. - May ultimately require colostomy to protect this region. HEME Left upper extremity DVT Anemia. Improved - DVT left internal jugular, subclavian, axillary and distal arm veins. - Cannot anticoagulate secondary to blood loss anemia requiring blood transfusion, frequent surgeries. - Arterial inflow into the left arm and hand is good. Subclinical hypothyroidism: -May continue to monitor. Ok to hold off on Synthroid Prophylaxis - Pepcid for GI ulcer prophylaxis - SCDs for DVT prophylaxis - chemical DVT prophylaxis with Lovenox okayed by general surgery Lines: PIV Overall impression: Patient was initially critically ill and in septic shock with necrotizing fasciitis emanating from a deep chronic sacral decubitus ulcer. She has required multiple OR trips for I&D and VAC changes. Family request continued aggressive care. She had a recurrent bout of severe sepsis on 01/14 but after 2 debridements she is very much improved. Now on T-piece, hemodynamically stable, Code Status: FULL CODE Discharge Planning: [facility] case management. [facility] may be an option. Progress Note: Quality VTE Deep Vein Thrombosis/Pulmonary Embolism Present on Admission: No
[2018-01-28] MEDS: Enoxaparin Inj 30 MG/0.3 ML Syringe SQ SCH (18:26)
[2018-01-29] MEDS: Piperacil/Tazo 3.375 GM Premix 50 ML IV.SIG SCH ×3 (00:06→12:00)
[2018-01-29] MEDS: Oral Hygiene Kit OROPHARYNG SCH ×4 (00:07→17:22)
[2018-01-29] MEDS: Insulin NovoLIN Regular Correctional Sugar Inj SQ SCH ×4 (03:29→23:34)
[2018-01-29 05:59] LABS: Hematocrit 23.2 % (35.0-46.0); Hemoglobin 7.5 gm/dL (11.6-15.3); Mean Corpuscular HGB Conc 32.3 % (32.0-36.0); Mean Corpuscular Hemoglobin 31.1 pg (27.0-34.0); Mean Corpuscular Volume 96.5 fL (80.0-100.0); Mean Platelet Volume 10.8 fL (7.0-11.0); Platelet Count 232 th/mm3 (150-450); Red Blood Count 2.41 mil/mm3 (4.00-5.30); Red Cell Distribution Width 21.1 % (11.6-17.2); White Blood Count 11.2 th/mm3 (4.0-11.0)
[2018-01-29 06:29] LABS: Calcium 8.7 mg/dL (8.5-10.1); Carbon Dioxide 27.9 meq/L (21.0-32.0); Potassium 4.4 meq/L (3.5-5.1)
[2018-01-29] MEDS: Insulin Detemir Inj 1,000 UNIT/10 ML Vial SQ SCH ×2 (09:23→23:33)
[2018-01-29] MEDS: Lisinopril 5 MG Tablet NG/OG SCH (09:24)
[2018-01-29] MEDS: Metoprolol Tartrate 50 MG Tablet NG/OG SCH ×2 (09:24→23:33)
[2018-01-29] MEDS: hydrALAZINE 50 MG Tablet NG/OG SCH ×3 (09:24→17:21)
[2018-01-29] MEDS: Lactic Acid (Ammonium Lactate) 12% Lotion 225 GM Bottle TOPICAL SCH ×2 (09:25→23:33)
[2018-01-29] MEDS: Collagenase Oint 30 GM Tube TOPICAL SCH (09:25)
[2018-01-29] MEDS: Senna/Docusate Sodium 8.6/50 MG Tablet NG/OG SCH ×2 (09:26→23:34)
[2018-01-29] MEDS: Lansoprazole ODT 15 MG Tablet NG/OG SCH (09:27)
[2018-01-29] MEDS: Chlorhexidine 0.12% Oral Kit 15 ML UDC OROPHARYNG SCH ×2 (10:44→23:32)
--- NOTE | 2018-01-29 14:35 | P.PNIM ---
Subjective Interval history: No acute changes per nursing staff. No fevers. Patient follows simple commands. Shakes her head when I asked her if she is in pain. Physical Exam Vital signs: Last Vital Signs Temp 98.7 F 01/29/18 12:00 Pulse 82 01/29/18 12:00 Resp 16 01/29/18 12:00 BP 114/59 L 01/29/18 12:00 Pulse Ox 100 01/29/18 12:00 Intake & Output 01/27/18 01/28/18 01/29/18 01/30/18 06:59 06:59 06:59 06:59 Intake Total 763 / 763 528 / 528 1520 / 1520 50 / 50 Output Total 3480 / 3480 5020 / 5020 1250 / 1250 Balance -2717 / -2717 -4492 / -4492 270 / 270 50 / 50 Weight 69.3 kg 67.1 kg 67.2 kg Narrative: Narrative: General: Cachectic middle-aged woman, on T-piece via tracheostomy. Lungs: Air movement is fair, few coarse breath sounds bilaterally. No wheezing. Heart: Normal rate and regular rhythm. No significant murmurs. Abdomen: Soft, no guarding, nondistended, nontender, active bowel sounds Back: Wound VAC remains in place over lower left hip and trunk. Urinary Catheter Management Indwelling Urethral Catheter: Cath placed during this visit: yes Urethral indwelling: Yes Insertion date: 01/13/18 Insertion time: 01:00 1: Cath placed during this visit: yes, but has since been removed by the nurse Urethral indwelling: Yes Insertion date: 12/15/17 Removal date: 01/13/18 Removal time: 01:00 Results Labs CBC & Chem 7: 01/29/18 05:31 01/29/18 05:31 Labs: Microbiology 12/24/17 12:20 Tissue - Buttock Acid Fast Bacilli Smear - Final No acid fast bacilli seen 12/24/17 12:20 Tissue - Buttock Mycobacterial Culture - Preliminary No growth in 5 weeks Procedures Procedures: lumbar wd debridement with wd vac Assessment and Plan (1) Fasciitis: Code(s): M72.9 - Fibroblastic disorder, unspecified Status: Acute Plan Acute metabolic encephalopathy Resolved Septic Shock- improving With necrotizing soft tissue infection Myocardial dysfunction secondary to septic shock Fluid overload Tapered levophed off Completed IV Zosyn yesterday per ID Continue p.o. Diflucan Flagyl has been discontinued by ID. Acute hypoxic and hypercarbic respiratory failure- persistent - s/p Trach in OR 12/28/17. -Tolerating T-piece Diabetes mellitus type II, initially uncontrolled, insulin-dependent, no active complications Now currently blood sugar better controlled. - Med scale SSI. - Follow potassium and magnesium closely -Continue with current basal insulin Levemir 16 Units BID Hematology/Infectious Disease Septic Shock Necrotizing soft tissue infection CAUTI, PSAE PNA, PSAE - Follow white count and platelet count closely. -Has completed Zosyn. Continue Diflucan for fungal coverage. Stop Flagyl per infectious disease Dr. Song - General surgery service following back wounds, scheduling debridement. Per plastic does not feel that she is a candidate for skin grafting at this time. He advised continuing wound VAC. Consideration for diverting colostomy in the future in order to allow for uninterrupted care for skin grafts was recommended by plastic surgery. Patient had refused in the past. GI Acute protein calorie malnutrition- severe - Tube feeds infusing, tolerated. As needed IV fluids - Follow prealbumin weekly - Dignishield placed to protect wounds from soilage. - Follow prealbumin weekly. - refused PEG (change NG every 14 days) Acute kidney injury resolved Mild hyperkalemia now resolved. - Tristan required for hourly urine output and to protect perineal region. - May ultimately require colostomy to protect this region. -Per previous provider cannot think of a solution to the problem of continuous wound soilage. Refused colostomy HEME Left upper extremity DVT Anemia. Improved - DVT left internal jugular, subclavian, axillary and distal arm veins. - Cannot anticoagulate secondary to blood loss anemia requiring blood transfusion, frequent surgeries. - Arterial inflow into the left arm and hand is good. Hyperkalemiaresolved Prophylaxis - Pepcid for GI ulcer prophylaxis - SCDs for DVT prophylaxis - chemical DVT prophylaxis with Lovenox okayed by general surgery Lines: PIV Overall impression: This woman was initially critically ill and in septic shock with necrotizing fasciitis emanating from a deep chronic sacral decubitus ulcer. She has required multiple OR trips for I&D and VAC changes. Family request continued aggressive care. She had a recurrent bout of severe sepsis on 01/14 but after 2 debridements she is very much improved. Now on T-piece, hemodynamically stable, Progress Note: Quality VTE Deep Vein Thrombosis/Pulmonary Embolism Present on Admission: No
[2018-01-29] MEDS: Enoxaparin Inj 30 MG/0.3 ML Syringe SQ SCH (17:21)
[2018-01-30] MEDS: Oral Hygiene Kit OROPHARYNG SCH ×4 (04:01→17:12)
[2018-01-30] MEDS: Insulin NovoLIN Regular Correctional Sugar Inj SQ SCH ×3 (04:30→16:30)
[2018-01-30] MEDS: Senna/Docusate Sodium 8.6/50 MG Tablet NG/OG SCH ×2 (09:21→21:58)
[2018-01-30] MEDS: hydrALAZINE 50 MG Tablet NG/OG SCH ×3 (09:21→17:14)
[2018-01-30] MEDS: Metoprolol Tartrate 50 MG Tablet NG/OG SCH ×2 (09:21→21:58)
[2018-01-30] MEDS: Lisinopril 5 MG Tablet NG/OG SCH (09:22)
[2018-01-30] MEDS: Insulin Detemir Inj 1,000 UNIT/10 ML Vial SQ SCH ×2 (09:22→22:01)
[2018-01-30] MEDS: Lansoprazole ODT 15 MG Tablet NG/OG SCH (09:22)
[2018-01-30] MEDS: Collagenase Oint 30 GM Tube TOPICAL SCH (09:27)
[2018-01-30] MEDS: Lactic Acid (Ammonium Lactate) 12% Lotion 225 GM Bottle TOPICAL SCH ×2 (09:27→22:00)
[2018-01-30] MEDS: Chlorhexidine 0.12% Oral Kit 15 ML UDC OROPHARYNG SCH ×2 (09:35→22:01)
--- NOTE | 2018-01-30 11:40 | P.PNIM ---
Subjective Interval history: No changes overnight per nursing staff. She is still declining NG tube. No other concerns at this time. Physical Exam Vital signs: Last Vital Signs Temp 98.1 F 01/30/18 08:00 Pulse 87 01/30/18 08:00 Resp 14 01/30/18 08:00 BP 130/70 01/30/18 08:00 Pulse Ox 99 01/30/18 08:00 Intake & Output 01/28/18 01/29/18 01/30/18 01/31/18 06:59 06:59 06:59 06:59 Intake Total 528 / 528 1520 / 1520 1670 / 1670 Output Total 5020 / 5020 1250 / 1250 2350 / 2350 Balance -4492 / -4492 270 / 270 -680 / -680 Weight 67.1 kg 67.2 kg 68.1 kg Narrative: General: Cachectic middle-aged woman, on T-piece via tracheostomy. Lungs: Supplemental oxygen through tracheostomy. Good bilateral breath sounds, relatively clear. Acceptable cough effort Heart: RRR. Abdomen: Soft, no guarding, nondistended, nontender, bowel sounds active Back: Wound VAC remains in place over lower bilateral lumbar region. Surrounding skin is mildly erythematous. Musculoskeletal: Warm, well perfused, status post below-knee amputation right side, well-healed. Neurological: Follows commands and moves bilateral lower extremity Urinary Catheter Management Indwelling Urethral Catheter: Cath placed during this visit: yes Urethral indwelling: Yes Insertion date: 01/13/18 Insertion time: 01:00 1: Cath placed during this visit: yes, but has since been removed by the nurse Urethral indwelling: Yes Insertion date: 12/15/17 Removal date: 01/13/18 Removal time: 01:00 Results Labs CBC & Chem 7: 01/29/18 05:31 01/29/18 05:31 Labs: Microbiology 12/24/17 12:20 Tissue - Buttock Acid Fast Bacilli Smear - Final No acid fast bacilli seen 12/24/17 12:20 Tissue - Buttock Mycobacterial Culture - Preliminary No growth in 5 weeks Procedures Procedures: lumbar wd debridement with wd vac Assessment and Plan (1) Fasciitis: Code(s): M72.9 - Fibroblastic disorder, unspecified Status: Acute Plan Acute metabolic encephalopathy Resolved Septic Shock- improving With necrotizing soft tissue infection Myocardial dysfunction secondary to septic shock Fluid overload Tapered levophed off Has completed IV Zosyn course Acute hypoxic and hypercarbic respiratory failure- persistent - s/p Trach in OR 12/28/17. -Tolerating T-piece Diabetes mellitus type II, initially uncontrolled, insulin-dependent, no active complications Severe hyperglycemia. Improved - Med scale SSI. - Ongoing adjustments with basal insulin following episode of sepsis, requirements now declining Hematology/Infectious Disease Septic Shock Necrotizing soft tissue infection CAUTI, PSAE PNA, PSAE - Follow white count and platelet count closely. -Completed Zosyn continue Diflucan for fungal coverage. Stop Flagyl per infectious disease Dr. Song - General surgery service following back wounds, scheduling debridement and continuation with wound VAC. Plastic, Dr. De La Rosa reviewed patient's case on January 24 and felt she was not a good candidate for skin grafting as a wounds are not ready. He is also recommending a diverting colostomy which the patient is refusing. Complex case as patient is declining some recommended treatments. Acute protein calorie malnutrition- severe - Tube feeds infusing, tolerated. As needed IV fluids - Follow prealbumin weekly - Dignishield placed to protect wounds from soilage. - Follow prealbumin weekly. - refused PEG (change NG every 14 days) Hold stool softeners for loose stools. Acute kidney injury resolved - Tristan required for hourly urine output and to protect perineal region. - May ultimately require colostomy to protect this region however patient has declined. -Per previous provider cannot think of a solution to the problem of continuous wound soilage. Refused colostomy HEME Left upper extremity DVT Anemia. Improved - DVT left internal jugular, subclavian, axillary and distal arm veins. - Cannot anticoagulate secondary to blood loss anemia requiring blood transfusion, frequent surgeries. - Arterial inflow into the left arm and hand is good. - Pepcid for GI ulcer prophylaxis - SCDs for DVT prophylaxis - chemical DVT prophylaxis with Lovenox okayed by general surgery Lines: PIV Overall impression: This woman was initially critically ill and in septic shock with necrotizing fasciitis emanating from a deep chronic sacral decubitus ulcer. She has required multiple OR trips for I&D and VAC changes. Family request continued aggressive care. She had a recurrent bout of severe sepsis on 01/14 but after 2 debridements she is very much improved. Now on T-piece, hemodynamically stable, however due to the declining NG tube and colostomy, it may be difficult to manage her active wound healing. We will consult palliative care to assist with determining patient is long-term and short-term goals Progress Note: Quality VTE Deep Vein Thrombosis/Pulmonary Embolism Present on Admission: No
--- NOTE | 2018-01-30 15:36 | P.DIET ---
Nutritional Evaluation Type of nutrition evaluation: follow-up Nutrition consult regarding: Tube Feeding Subjective Subjective Comments: Declining PEG. 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%) % IBW: 122 (IBW = 123-lb (adjusted for amp)) Body Weight Used for Calculations: Actual (64.9 kg) Energy Needs - Lower Range (kCal/kg): 30 Energy Needs - Upper Range (kCal/kg): 35 Lower Limit kCal/kg (kCals): 1,947 Upper Limit kCal/kg (kCals): 2,272 Lower Limit Protein Factor (Grams per Kg): 1.2 Upper Limit Protein Factor (Grams per Kg): 1.6 Lower Protein Needs (Protein): 78 Upper Protein Needs (Protein): 104 Dietitian Reviewed in Medical Record: Curent medications, Intake & Output, Labs , Medical history, Tube feeding, Wound/DTI Diet Order: NPO Wound Care Note: see last WOCN dated 01/28 Objective Comments: PMH includes: Hep C, DM, PAD, HTN, Osteomyelitis, R AKA, GERD, gastroparesis, PVD, peripheral neuropathy Decubitus Ulcer; here w/Stage IV sacral decubitus s/p debridement of Necrotizing tissue Fasciitis 01/08/19: Necrotizing Fasciitis of pelvic region and thigh w/ I & D, wound vac change, partial closure Assessment Assessment: Pt continues at high nutrition risk r/t increased needs for wound healing, clinical status and need for TFing. Pt has had multiple trips to the OR for debridement and wound vac changes, requiring TFing to be placed on hold. Receiving Glucerna 1.5 @ 60 ml/hr to provide 2160 kcal, 119g protein and 1093ml free water and Alek 1-pkt BID to aid in wound healing. Labs, wts and clinical course reviewed. CBW = 68.1 kg. Pt with necrotizing fascitis of back, buttock and thigh with wound vac placed, suffering wt loss since admission and may need increased TF rate to prevent further nutritional depletion. Recommend increase TF rate to 65 mls/hr to provide 2340 kcals, 99.5 gms protein and 1186 mls of free water. Recommendations: Increase Glucerna 1.5 to 65 mls/hr goal Continue Alek 1 pack bid Dietitian to Monitor: Lab values, Glucose level, Intake & Output, Tube feeding tolerance, Weight change, Wound/skin status, Medical course
[2018-01-30] MEDS ORDERED: Naloxone Inj 0.4 MG/ML Vial IV.PUSH PRN (16:30)
[2018-01-30] MEDS: oxyCODONE/Acetaminophen 10/325 Tablet PO PRN (17:14)
[2018-01-30] MEDS: Enoxaparin Inj 30 MG/0.3 ML Syringe SQ SCH (17:14)
[2018-01-30] MEDS: Dextrose 50% in Water 50 ML Vial IV.PUSH PRN (20:47)
[2018-01-31] MEDS: Oral Hygiene Kit OROPHARYNG SCH ×4 (00:35→17:21)
[2018-01-31] MEDS: Lisinopril 5 MG Tablet NG/OG SCH (08:06)
[2018-01-31] MEDS: Senna/Docusate Sodium 8.6/50 MG Tablet NG/OG SCH ×2 (08:07→20:12)
[2018-01-31] MEDS: hydrALAZINE 50 MG Tablet NG/OG SCH ×3 (08:07→18:18)
[2018-01-31] MEDS: Insulin Detemir Inj 1,000 UNIT/10 ML Vial SQ SCH ×2 (08:07→23:35)
[2018-01-31] MEDS: Metoprolol Tartrate 50 MG Tablet NG/OG SCH ×2 (08:07→20:12)
[2018-01-31] MEDS: oxyCODONE/Acetaminophen 10/325 Tablet PO PRN ×2 (08:07→20:12)
[2018-01-31] MEDS: Chlorhexidine 0.12% Oral Kit 15 ML UDC OROPHARYNG SCH (08:08)
[2018-01-31] MEDS: Lactic Acid (Ammonium Lactate) 12% Lotion 225 GM Bottle TOPICAL SCH ×2 (08:09→20:18)
[2018-01-31] MEDS: Insulin NovoLIN Regular Correctional Sugar Inj SQ SCH ×5 (09:24→23:36)
--- NOTE | 2018-01-31 10:42 | P.PN ---
Subjective Interval history: Follow up for sepsis, necrotizing fascitis: Pt. seen and examined, awakes to voice. Has NGT in place, tolerating TF well. On TC, no distress. Noted oozing blood around back wound, wound vac dressing saturated. manufacturing mechanic came to examined, no active bleeding when dressing was changed. Hemodynamically stable. Physical Exam Vital signs: Vital Signs 01/30/18 12:00 01/30/18 14:00 01/30/18 14:41 Temperature 98.2 F Pulse Rate 78 Respiratory Rate 16 16 Blood Pressure 166/79 H Pulse Oximetry 100 98 01/30/18 16:00 01/30/18 20:00 01/30/18 22:22 Temperature 98.2 F 99.3 F Pulse Rate 81 99 H 94 H Respiratory Rate 16 18 Blood Pressure 166/79 H 132/60 Pulse Oximetry 100 100 01/31/18 00:00 01/31/18 04:00 01/31/18 05:00 Temperature 97.8 F 97.4 F L Pulse Rate 94 H 92 H Respiratory Rate 16 18 20 Blood Pressure 138/68 136/71 Pulse Oximetry 100 100 01/31/18 08:00 Temperature 98.2 F Pulse Rate 96 H Respiratory Rate 19 Blood Pressure 119/57 L Pulse Oximetry 98 Intake & Output 01/30/18 01/31/18 01/31/18 18:59 06:59 18:59 Intake Total 0 / 0 Output Total 700 / 700 575 / 575 Balance -700 / -700 -575 / -575 Weight 70.8 kg Intake: Oral 0 / 0 Output: Urine 700 / 700 Urine Amount (Catheter) 575 / 575 Indwelling Urethral Catheter 575 / 575 Other: Mode Setting Posterior Sacrum Continuous back and L buttock Continuous Continuous Narrative: General: Cachectic middle-aged woman, on T-piece via tracheostomy. Chronically ill appearing. Lungs: Supplemental oxygen through tracheostomy. Coarse breath sounds, upper lobes. Heart: RRR. No M/R/G Abdomen: Soft, no guarding, nondistended, nontender, bowel sounds active Back: Wound vac noted saturated with blood, dressing changed per wound care. No active bleeding after dressing changes. : Flexiseal in place. Musculoskeletal: Warm, well perfused, status post below-knee amputation right side, well-healed. Left foot with dressing in place. Neurological: Awakes to voice, grimaces, follows commands. - Urinary Catheter Management Indwelling Urethral Catheter Cath placed during this visit: yes Urethral indwelling: Yes Reason for continuing: Chronic Urinary Retention Insertion date: 01/13/18 Insertion time: 01:00 1 Cath placed during this visit: yes, but has since been removed by the nurse Urethral indwelling: Yes Reason for continuing: Severe pressure ulcer/wound Insertion date: 12/15/17 Removal date: 01/13/18 Removal time: 01:00 Results - Labs CBC & Chem 7: 01/29/18 05:31 01/30/18 21:24 Laboratory Results - last 24 hr 01/30/18 01/30/18 01/30/18 12:47 16:57 20:20 POC Glucose 91 109 62 L Random Glucose 01/30/18 01/30/18 01/30/18 20:23 21:24 21:42 POC Glucose 65 L 139 H Random Glucose 144 H 01/31/18 08:03 POC Glucose 297 H Random Glucose - Procedures lumbar wd debridement with wd vac Assessment and Plan - Assessment (1) Fasciitis Code(s): M72.9 - Fibroblastic disorder, unspecified Status: Acute - Plan Acute metabolic encephalopathy Resolved Septic Shock- improving With necrotizing soft tissue infection Myocardial dysfunction secondary to septic shock Fluid overload Tapered levophed off Has completed IV Zosyn course Acute hypoxic and hypercarbic respiratory failure- persistent - s/p Trach in OR 12/28/17. -Tolerating T-piece Diabetes mellitus type II, initially uncontrolled, insulin-dependent, no active complications Severe hyperglycemia. Improved - Med scale SSI. - Ongoing adjustments with basal insulin following episode of sepsis, requirements now declining Hematology/Infectious Disease Septic Shock Necrotizing soft tissue infection CAUTI, PSAE PNA, PSAE - Follow white count and platelet count closely. -Completed Zosyn continue Diflucan for fungal coverage. Stop Flagyl per infectious disease Dr. Song - General surgery service following back wounds, scheduling debridement and continuation with wound VAC. Plastic, Dr. De La Rosa reviewed patient's case on January 24 and felt she was not a good candidate for skin grafting as a wounds are not ready. He is also recommending a diverting colostomy which the patient is refusing. Complex case as patient is declining some recommended treatments. Wound vac noted oozing blood,dressing saturated. manufacturing mechanic examined, no active bleeding. Redressed wound. Roseanna Andrade and wound care nurse to change wound vac mid afternoon. Acute protein calorie malnutrition- severe - Tube feeds infusing, tolerated. As needed IV fluids - Follow prealbumin weekly - Dignishield placed to protect wounds from soilage. - Follow prealbumin weekly. - refused PEG (change NG every 14 days) -Hold stool softeners for loose stools. Acute kidney injury resolved - Tristan required for hourly urine output and to protect perineal region. - May ultimately require colostomy to protect this region however patient has declined. -Per previous provider cannot think of a solution to the problem of continuous wound soilage. Refused colostomy HEME Left upper extremity DVT Anemia. Improved - DVT left internal jugular, subclavian, axillary and distal arm veins. - Cannot anticoagulate secondary to blood loss anemia requiring blood transfusion, frequent surgeries. - Arterial inflow into the left arm and hand is good. -Hgb 7.5 on 01/29, repeat in am - Pepcid for GI ulcer prophylaxis - SCDs for DVT prophylaxis - chemical DVT prophylaxis with Lovenox okayed by general surgery Lines: PIV Overall impression: This woman was initially critically ill and in septic shock with necrotizing fasciitis emanating from a deep chronic sacral decubitus ulcer. She has required multiple OR trips for I&D and VAC changes. Family request continued aggressive care. She had a recurrent bout of severe sepsis on 01/14 but after 2 debridements she is very much improved. Now on T-piece, hemodynamically stable, however due to the declining NG tube and colostomy, it may be difficult to manage her active wound healing. Palliative care was consulted to assist with goals of care. Code Status: Full code Discussed Condition With: RN, pt, puppet master Discharge Planning: Not ready for dc yet.
--- NOTE | 2018-01-31 12:04 | P.PNPAL ---
Reason for Visit Reason for visit: a. To assist with evaluation and management of symptoms including: dyspnea, debility, pain b. To assist medical decision maker(s) with: better understanding of current medical conditions; weighing benefits/burdens of medical treatment options; making medical treatment decisions. Subjective Subjective/Interval History: Patient seen and examined in LTVU. No family at bedside. Left message for to return call to provide medical update. Patient is awake and alert. Able to communicate effectively mouthing words. On oxygen via t-piece to trach. She reports pain in back area. She rates pain 10/ 10. She indicates pain medication is not effective. Was previously on Fentanyl 50mcg patch, on hold since 01/13/18. She has PRN Percocet 10/325mg every 4 hours , has had 2 doses in the past 24 hours and PRN Morphine 2mg IV every 4 hours, 1 dose in the past 24 hours. Patient is tearful, requests medication adjustment for comfort. Patient is very tearful during todays visit. She tells me she is "tired." We talked about all she has been through, how strong and brave she has been. She tells me she wants to go home. She is "tired of procedures, she does not want anymore surgery." She is "tired of being in pain, she does not feel like she is getting better. She wants to go home, she does not want to live in the hospital and does not want to in the hospital." She indicates on multiple times during my visit that she does not want cardiac resuscitation, shock, ACLS or mech ventilation. She wants to peacefully and naturally when it is her time. I asked her if she has familiar with hospice, she nods yes. I advised hospice would be there to ensure her comfort at end of life. She indicates she wants to go home with hospice. I told her I would call her so we can set up a meeting to talk with him about her wishes, as his goals have been VERY aggressive since her admission. I will also have Sandhya Henry LCSW meet with patient to provide additional support to patient. d/w nurse. Family/Friend Interactions: Spoke with Tyrone via speaker phone to provide update on my earlier conversation with patient. Conversation witnessed by Jayla Griffin APRN and Sandhya Henry LCSW. Advised of patient verbalized wishes, he tells me he just saw her a few days again she she did not tell him any of this. I advised she has never said these things to our team until today. I notified him that she elected NO CODE, that she wants to peacefully and naturally without cardiac resuscitation, shock, ACLS or mechanical ventilation. Advised that the patient signed [place] DO NOT RESUSCITATE order, he verbalizes understanding and agreement. Requested palliative care meeting with him and his in the coming days, he indicates he is unable to return to the hospital until 02/04/18 secondary to his work schedule. I explained that the patient was tearful and seemed to be wanting to speak with him. I advised that I will be making medication adjustments for her pain control and he agrees. We talked about hospice services briefly, he does not seem open to consideration of hospice at least any of until he is able to speak with her next week. He tells me that the medical team has indicated that she is doing much better and he was hopeful that she would eventually be able to return home. I explained to him that it is unlikely that she will return home, does not appear that she will be able to be independent again. I advised that she is high risk for additional complications given significant wounds, risk of infection. He again seems optimistic and hopeful for continued recovery. Palliative care will continue to follow to assist with communication between patient and her spouse in the coming days. . Advance Directives Living Will: Never completed Health Care Surrogate: Never completed Health Care Surrogate Name and Number: HCP Tyrone Middleton Documented care wishes:: No known documented care wishes have been completed Significant change in goals:: Patient elected NO CODE (DNR/no mech ventilation). Plan to continue aggressive care short of NO CODE for now. Objective Vital Signs: Vital Signs 01/30/18 12:00 01/30/18 14:00 01/30/18 14:41 Temperature 98.2 F Pulse Rate 78 Respiratory Rate 16 16 Blood Pressure 166/79 H Pulse Oximetry 100 98 01/30/18 16:00 01/30/18 20:00 01/30/18 22:22 Temperature 98.2 F 99.3 F Pulse Rate 81 99 H 94 H Respiratory Rate 16 18 Blood Pressure 166/79 H 132/60 Pulse Oximetry 100 100 01/31/18 00:00 01/31/18 04:00 01/31/18 05:00 Temperature 97.8 F 97.4 F L Pulse Rate 94 H 92 H Respiratory Rate 16 18 20 Blood Pressure 138/68 136/71 Pulse Oximetry 100 100 01/31/18 08:00 Temperature 98.2 F Pulse Rate 96 H Respiratory Rate 19 Blood Pressure 119/57 L Pulse Oximetry 98 Intake & Output 01/30/18 01/31/18 01/31/18 18:59 06:59 18:59 Intake Total 0 / 0 Output Total 700 / 700 575 / 575 Balance -700 / -700 -575 / -575 Weight 70.8 kg Intake: Oral 0 / 0 Output: Urine 700 / 700 Urine Amount (Catheter) 575 / 575 Indwelling Urethral Catheter 575 / 575 Other: Mode Setting Posterior Sacrum Continuous back and L buttock Continuous Continuous Physical Exam: CONSTITUTIONAL/GENERAL: This is a chronically ill appearing female who looks older than her stated age. TUBES/LINES/DRAINS: Tracheostomy, PIV, wound VAC. SKIN: Very pale. Scattered ecchymosis to upper extremities. Wound VAC in place low back with blood-tinged drainage in VAC canister. Skin warm/dry, flaky/ scaling in places EYES: Pupils equal and round, reactive. No scleral icterus. No injection or drainage. ENT: Nose without bleeding or purulent drainage. Moist oral mucosa. CARDIOVASCULAR: Regular rate and rhythm. 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 Respiration even/unlabored. Lungs w scattered rhonchi. GASTROINTESTINAL: Abdomen soft, non-tender, mildly distended. No guarding. Bowel sounds active, Dobbhoff NG in place, TF infusing. GENITOURINARY: Without palpable bladder distension. MUSCULOSKELETAL: Status post right BKA. Left foot cool to touch; dressing to foot. Post tib pulse palpable NEUROLOGICAL: Awake, nods to yes/no questions. Answers questions appropriately. Mouths words, able to understand most of what she is trying to mouth. Follows simple commands. PSYCHIATRIC: Calm/flat, no distress Diagnostic Tests Laboratory: Laboratory Results - last 72 hr 01/28/18 01/28/18 01/28/18 12:34 16:00 21:54 WBC RBC Hgb Hct MCV MCH MCHC RDW Plt Count MPV Sodium Potassium Chloride Carbon Dioxide Anion Gap BUN Creatinine Estimated GFR POC Glucose 123 H 109 95 Random Glucose Calcium 01/29/18 01/29/18 01/29/18 03:28 05:31 05:31 WBC 11.2 H RBC 2.41 L Hgb 7.5 L Hct 23.2 L MCV 96.5 MCH 31.1 MCHC 32.3 RDW 21.1 H Plt Count 232 MPV 10.8 Sodium 139 Potassium 4.4 Chloride 106 Carbon Dioxide 27.9 Anion Gap 5 BUN 37 H Creatinine 0.70 Estimated GFR 88 L POC Glucose 105 Random Glucose 117 H Calcium 8.7 01/29/18 01/29/18 01/29/18 09:31 15:01 21:48 WBC RBC Hgb Hct MCV MCH MCHC RDW Plt Count MPV Sodium Potassium Chloride Carbon Dioxide Anion Gap BUN Creatinine Estimated GFR POC Glucose 156 H 176 H 124 H Random Glucose Calcium 01/30/18 01/30/18 01/30/18 04:29 08:00 12:47 WBC RBC Hgb Hct MCV MCH MCHC RDW Plt Count MPV Sodium Potassium Chloride Carbon Dioxide Anion Gap BUN Creatinine Estimated GFR POC Glucose 100 85 91 Random Glucose Calcium 01/30/18 01/30/18 01/30/18 16:57 20:20 20:23 WBC RBC Hgb Hct MCV MCH MCHC RDW Plt Count MPV Sodium Potassium Chloride Carbon Dioxide Anion Gap BUN Creatinine Estimated GFR POC Glucose 109 62 L 65 L Random Glucose Calcium 01/30/18 01/30/18 01/31/18 21:24 21:42 08:03 WBC RBC Hgb Hct MCV MCH MCHC RDW Plt Count MPV Sodium Potassium Chloride Carbon Dioxide Anion Gap BUN Creatinine Estimated GFR POC Glucose 139 H 297 H Random Glucose 144 H Calcium Result Diagrams: 01/29/18 05:31 01/30/18 21:24 Microbiology: Microbiology 12/24/17 12:20 Acid Fast Bacilli Smear - Final Tissue - Buttock No acid fast bacilli seen Mycobacterial Culture - Preliminary No growth in 5 weeks Imaging: Femur X-Ray 12/15/17 07:05 CONCLUSION: No fracture is identified. There is extensive soft tissue air in the right gluteal region and extending into the proximal and mid posterior thigh. The soft tissue air suggests an open wound. Pelvis X-Ray 12/15/17 07:05 CONCLUSION: No fracture is identified. However, there is extensive soft tissue air in the left gluteal region and left proximal thigh. Pelvis CT 12/15/17 07:52 CONCLUSION: 1. No fracture is identified. 2. Extensive subcutaneous and soft tissue gas bilaterally, left greater than right. It is most severe in the left gluteal region and extends into the proximal posterior thigh. The soft tissue air dissects through the gluteal musculature. There is adjacent subcutaneous edema. Foot X-Ray 12/18/17 00:00 CONCLUSION: Remote small avulsion fracture at the fifth toe. No acute bony abnormality. Venous Doppler Study 12/22/17 00:00 CONCLUSION: Extensive deep vein thrombosis of the left upper extremity. Chest X-Ray 01/27/18 00:00 CONCLUSION: Persistent mild bilateral airspace disease without significant consolidation. Otherwise stable chest. Abdomen X-Ray 01/27/18 17:30 CONCLUSION: The feeding tube is looped in the stomach and the distal tip is in the gastric fundus. Procedures: 12/15/2017: Endotracheal intubation 12/15/2017: Left subclavian central line placement 12/15/2017: NGT placement 12/15/2017: I&D with wound HEMOVAC placement 12/18/2017: I&D with wound VAC change 12/21/2017: I&D with wound VAC change 12/24/2017: I&D with wound VAC change 12/28/2017: perc trach, wound vac change to back, buttock, posterior thigh 12/31/2017: I&D with wound VAC change, removal of coccyx bone 01/04/2018: I&D with wound VAC change 01/08/2018: I&D with wound VAC change, partial closure Assessment and Plan - Disease Oriented Problem List (1) Septic shock with acute organ dysfunction due to anaerobic bacteria (2) Acute respiratory failure (3) Type 2 diabetes mellitus with hyperosmolar nonketotic hyperglycemia (4) Necrotizing fasciitis (5) MARIO (acute kidney injury) (6) Lactic acidosis (7) Hypernatremia - Symptom Scale (1) Pain 0-10 Scale: 10 (2) Debility 0-10 Scale: Unable to quantify (3) Dyspnea 0-10 Scale: 0 Pertinent Non-Medical Issues: Psychosocial:Originally from [place]. Currently . Spiritual: No druze affiliation. Legal: Per [place] statutes, in the absence of written advanced directives health care proxy decision making will fall to the patient's , Tyrone. Patient is capacitated to make her own health care decisions. Ethical issues impacting care: No known ethical issues impacting care at this time. Important Contacts: Tyrone Middleton, : [phone] Sister Linette Lebron , Prognosis: Patient is critically ill and in septic shock with necrotizing fasciitis secondary to a chronic sacral decubitus. Upon arrival to the ED, the patient was hyperglycemic with a blood glucose of 610, severely dehydrated and in profound shock. She is intubated on mechanical ventilation requiring pressor support status post wide excision of the involved soft tissue. Patient will require further debridement in the future. She remains hemodynamically unstable and critically ill. Now declining, may not survive this hospitalization. Very poor overall prognosis for meaningful recovery. Code Status: Full Code Plan: * NO CODE. Risks, benefits and limitations of CPR were discussed at length with patient and later her to notify of patient election of NO CODE status, patient signed [place] DNR order, aware. * HEALTHCARE DECISION-MAKING: Patient is capacitated to make her own health care decisions. Per [place] statute, in the absence of written advanced directives healthcare proxy decision making falls to the patient's , Tyrone Middleton. He has accepted this role. * GOALS OF CARE: Goals remain aggressive short of NO CODE, patient seems to be considering comfort measures, wants to speak with her . She wants to go home, not sure this will be possible. Spouse unable to visit patient until 02/04 due to work schedule. Attempting to arrange family meeting 02/04/18 to further clarify goals of medical treatment. * Symptom management: = Pain: Multifactorial. Patient has a long history of chronic conditions. Possible contributing factors include severe peripheral arterial disease, recent BKA, peripheral neuropathy, sepsis, necrotizing fasciitis, invasive lines, immobility. Was previously on fentanyl patch 50 mcg q72hrs. Has PRN Hydrocodone and Morphine. Will restart Fentanyl and increase PRN Morphine. = Debility/profound physical deconditioning: Patient with uncontrolled diabetes with severe peripheral arterial disease and smoking. 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 Debility anticipated to worsen. has been back in ICU on vent, which further set back restorative efforts. now off vent, now in LTVU. = Dyspnea: trach to t-piece, denies shortness of breath. * Palliative care will continue to follow this patient throughout her hospitalization to establish trust, assist with symptom management and clarification of medical treatment goals. Attestation Attestation: To help prompt me to consider important information that might be impacting today's encounter and assessment, information from prior notes written by myself or my colleagues may have been "brought forward" into today's note. My signature on this note, however, is an attestation that I personally performed the exam, history, and/or decision-making noted today, and, unless otherwise indicated, the interactions with patient, family, and staff as well as the review of records all occurred today. I also attest that the listed assessment and stated plan reflect my best clinical judgment today based on the combination of historical information, prior notes, and today's exam/ interactions. When time spent is documented, it refers only to time spent today by the signer, or if indicated, combined time spent today by collaborating physician/nurse practitioner.
--- NOTE | 2018-01-31 12:50 | P.PNPAL ---
Palliative care supportive visit for Mrs. Middleton. Patient seen in room 727, LTVU. Currently lying in bed, eyes closed, easily awakens to verbal stimuli. She is currently with trach, able to mouth words, appropriate in conversation. Becomes tearful during visit, verbalizing she is tired and wants to go home. Offered emotional support through active listening. Mrs. Middleton has indicated she wishes for NO CODE status. States she "does not want to live here [at the hospital]". Verbalizes multiples times she wishes to go home. Gently introduced hospice services. Palliative care will attempt to speak with and arrange family meeting. Notified RN of patient's request for mouth swabs. Palliative care will continue to follow throughout hospitalization.
[2018-01-31] MEDS: Morphine Sulfate Inj 2 MG/ML Vial IV.PUSH PRN (13:09)
[2018-01-31] MEDS ORDERED: Silver Nitrate/Potassium Nitrate Applicator Sticks TOPICAL STA (13:42)
[2018-01-31] MEDS: Lansoprazole ODT 15 MG Tablet NG/OG SCH (14:53)
[2018-01-31] MEDS: Collagenase Oint 30 GM Tube TOPICAL SCH (14:54)
--- NOTE | 2018-01-31 15:34 | P.PNGS ---
Subjective Interval history: Resting in bed VISHAL Montgomery and VISHAL Perez at bedside VISHAL Lopez from [facility] also at beside Physical Exam Vital signs: Vital Signs 01/30/18 16:00 01/30/18 20:00 01/30/18 22:22 Temperature 98.2 F 99.3 F Pulse Rate 81 99 H 94 H Respiratory Rate 16 18 Blood Pressure 166/79 H 132/60 Pulse Oximetry 100 100 01/31/18 00:00 01/31/18 04:00 01/31/18 05:00 Temperature 97.8 F 97.4 F L Pulse Rate 94 H 92 H Respiratory Rate 16 18 20 Blood Pressure 138/68 136/71 Pulse Oximetry 100 100 01/31/18 07:00 01/31/18 08:00 01/31/18 12:00 Temperature 98.2 F 98.5 F Pulse Rate 96 H 96 H Respiratory Rate 19 20 Blood Pressure 119/57 L 135/63 Pulse Oximetry 99 98 100 Intake & Output 01/30/18 01/31/18 01/31/18 18:59 06:59 18:59 Intake Total 0 / 0 Output Total 700 / 700 575 / 575 Balance -700 / -700 -575 / -575 Weight 70.8 kg Intake: Oral 0 / 0 Output: Urine 700 / 700 Urine Amount (Catheter) 575 / 575 Indwelling Urethral Catheter 575 / 575 Other: Mode Setting Posterior Sacrum Continuous Continuous back and L buttock Continuous Continuous Continuous Narrative: Alert and awake trach in place to t-piece posterior wound over back and buttocks--- clean and dry--- Veraflow replaced LEFT hip wound had small area that required surgicel and several silver nitrate sticks used for cauterizing - Urinary Catheter Management Indwelling Urethral Catheter Cath placed during this visit: yes Urethral indwelling: Yes Reason for continuing: Chronic Urinary Retention Insertion date: 01/13/18 Insertion time: 01:00 1 Cath placed during this visit: yes, but has since been removed by the nurse Urethral indwelling: Yes Reason for continuing: Severe pressure ulcer/wound Insertion date: 12/15/17 Removal date: 01/13/18 Removal time: 01:00 Results - Labs 02/01/18 08:05 02/01/18 08:05 Laboratory Results - last 24 hr 01/30/18 01/30/18 01/30/18 16:57 20:20 20:23 POC Glucose 109 62 L 65 L Random Glucose 01/30/18 01/30/18 01/31/18 21:24 21:42 08:03 POC Glucose 139 H 297 H Random Glucose 144 H 01/31/18 12:47 POC Glucose 342 H Random Glucose - Imaging Imaging: ITS Impressions Femur X-Ray 12/15/17 07:05 CONCLUSION: No fracture is identified. There is extensive soft tissue air in the right gluteal region and extending into the proximal and mid posterior thigh. The soft tissue air suggests an open wound. Pelvis X-Ray 12/15/17 07:05 CONCLUSION: No fracture is identified. However, there is extensive soft tissue air in the left gluteal region and left proximal thigh. Pelvis CT 12/15/17 07:52 CONCLUSION: 1. No fracture is identified. 2. Extensive subcutaneous and soft tissue gas bilaterally, left greater than right. It is most severe in the left gluteal region and extends into the proximal posterior thigh. The soft tissue air dissects through the gluteal musculature. There is adjacent subcutaneous edema. Foot X-Ray 12/18/17 00:00 CONCLUSION: Remote small avulsion fracture at the fifth toe. No acute bony abnormality. Venous Doppler Study 12/22/17 00:00 CONCLUSION: Extensive deep vein thrombosis of the left upper extremity. Chest X-Ray 01/27/18 00:00 CONCLUSION: Persistent mild bilateral airspace disease without significant consolidation. Otherwise stable chest. Abdomen X-Ray 01/27/18 17:30 CONCLUSION: The feeding tube is looped in the stomach and the distal tip is in the gastric fundus. Assessment and Plan - Assessment (1) Fasciitis Code(s): M72.9 - Fibroblastic disorder, unspecified Status: Acute Plan: 52 year old female with wound on back, buttocks and bilateral thighs -Veraflow vac replaced today; will plan to change on Sunday -Palliative Care following - Attending Attestation patient seen at bedside veriflow vac continue changes await plastics for flap closure when ready will follow intermittently bleeding epside controlled with suture and hemostatic dressing The exam, history, and the medical decision-making described in the above note were completed with the assistance of the mid-level provider. I reviewed and agree with the findings presented. I attest that I had a [id number] encounter with the patient on the same day, and personally performed and documented my assessment and findings in the medical record.
--- NOTE | 2018-01-31 16:15 | P.PNWCN ---
Wound Care Nurse Consult Description: Patient seen today for Veraflow VAC dressing change to sacral and L buttock areas. Communicated with: VISHAL Baig ,and TRISTON Andrade Recommendation: Wound care will change wound VAC Veraflow cleanse choice on Sunday. Wound/Pressure Injury - Patient Status Premedicated for Pain Prior to Dressing Change: Yes Incision - Incision Sacral Incision Description: Open Incision Bed Appearance: Ventana, Red, Yellow Surrounding Tissue Appearance: [place]ana, Shiny Surrounding Tissue Temperature: Cool Drainage Description: Serosanguinous Drainage Amount: Minimal Drainage Odor: No Odor Incision Dressing Status: Changed Incision Cleaning Solution: Saline Incision Packing Type: Woundvac Sponge Primary Dressing: Negative Pressure Wound Dressing Incision Dressing Change Date: 01/31/18 Incision/Surgery Date: 01/31/18 Left Buttocks Incision Assessment: Ongoing Incision Description: Open Incision Bed Appearance: Red, White Surrounding Tissue Appearance: Ventana, Shiny Surrounding Tissue Temperature: Cool Drainage Description: Sanguinous Drainage Amount: Moderate Drainage Odor: No Odor Incision Dressing Status: Changed Incision Cleaning Solution: Saline Primary Dressing: Gauze Pad Cover Dressing: Absorbant Pad Tape Type: Paper Incision Dressing Change Date: 01/31/18 - Additional Information Patient seen on for wound VAC Veraflow Cleanse choice dressing change. Removed Moist to dry dressing that had been placed earlier today due to Veraflow wound VAC dressing dislodgment to reveal Large open wound on L buttock and sacral area.Wound VAC dressing was changed with the assistance of Sherly Andrade APRN, Ana Baig RN , racebook writer and John [facility] rep. Sacral Wound bed presents with ~ 20% dull red muscle tissue, ~20% facia, ~20% slough and ~ 40% red granulation tissue. Wound on L buttock presents with ~80% red granulation tissue, ~10% facia, and 10% yellow slough.Wound noted with large amount of sanguinous drainage in the middle of the wound.Sherly GOLDSTEIN applied surgicel dressing in an attempt to stop bleeding. Then silver nitrate was applied to stop the bleeding. Bleeding was stopped. Pressure dressing of moistened gauze, dry gauze and ABD pad was applied over L buttock, secured with paper tape, after cleansing wound with normal saline. Periwound of both wounds was noted with scattered partial thickness skin loss that is improving compared to last dressing change.Incision line between wound on sacrum and wound on L buttock is dry and intact Applied Jaime seal to periwound lining wound bed of sacral wound. 3 pieces of Frey foam with holes were applied to wound bed. Then applied 4 solid frey foam pieces over frey foam with holes. Periwound partial thickness skin loss was covered with maxorb II before cleanse choice foam was secured in place with VAC drape. Bridged frey solid foam over VAC drape to L anterior thigh. Sensi trac pad was applied to L thigh bridge area. Entire wound VAC dressing was sealed with VAC drape. Started VAC machine with VAC machine settings of 125 mm/Hg low continuous suction 3.5 hours with a break in suction for 5 minute normal saline soaks. Instilled 60 ml of normal saline with new settings after a 2 minute 30 second seal check. Wound soaked for 5 minutes before suctioning began again.Patient tolerated procedure fairly with complaints of pain with cleansing of wound.
[2018-01-31] MEDS: Enoxaparin Inj 30 MG/0.3 ML Syringe SQ SCH (17:29)
[2018-01-31] MEDS: clonazePAM 0.5 MG Tablet NG/OG SCH (20:12)
[2018-02-01] MEDS: Chlorhexidine 0.12% Oral Kit 15 ML UDC OROPHARYNG SCH ×3 (00:23→22:34)
[2018-02-01] MEDS: Oral Hygiene Kit OROPHARYNG SCH ×4 (00:23→17:54)
[2018-02-01] MEDS ORDERED: Sod Chloride 0.9% Inj 1,000 ML IV.SIG SCH ×2 (01:45→03:30)
[2018-02-01] MEDS ORDERED: Sodium Chlor 0.9% Inj 250 ML IV.SIG SCH ×2 (02:00→10:00)
[2018-02-01 02:09] LABS: Hematocrit 23.6 % (35.0-46.0); Hemoglobin 7.5 gm/dL (11.6-15.3)
[2018-02-01] MEDS: Morphine Inj 4 MG/ML Vial IV.PUSH PRN (05:00)
[2018-02-01] MEDS: Sod Chloride 0.9% Inj 1,000 ML IV.CONT SCH ×2 (05:43→22:36)
[2018-02-01] MEDS: Piperacil/Tazo 4.5 GM Premix 4.5 GM/100 ML BAG IV.SIG SCH ×5 (07:18→22:35)
[2018-02-01] MEDS: Insulin NovoLIN Regular Correctional Sugar Inj SQ SCH ×4 (08:01→22:33)
[2018-02-01 08:35] LABS: Baso # (Auto) 0.1 th/mm3 (0.0-0.2); Baso % (Auto) 0.4 % (0.0-2.0); Eos % (Auto) 0.1 % (0.0-4.0); Lymph # (Auto) 3.4 th/mm3 (1.0-4.8); Lymph % (Auto) 18.9 % (9.0-44.0); Mean Corpuscular HGB Conc 33.6 % (32.0-36.0); Mean Corpuscular Hemoglobin 32.5 pg (27.0-34.0); Mean Corpuscular Volume 96.5 fL (80.0-100.0); Mean Platelet Volume 10.9 fL (7.0-11.0); Mono # (Auto) 0.9 th/mm3 (0.0-0.9); Mono % (Auto) 4.8 % (0.0-8.0); Neut # (Auto) 13.6 th/mm3 (1.8-7.7); Neut % (Auto) 75.8 % (16.0-70.0); Platelet Count 179 th/mm3 (150-450); Red Blood Count 1.85 mil/mm3 (4.00-5.30)
[2018-02-01 08:41] LABS: Hematocrit 17.8 % (35.0-46.0)
[2018-02-01] MEDS: hydrALAZINE 50 MG Tablet NG/OG SCH ×3 (09:00→17:55)
[2018-02-01 09:06] LABS: Calcium 8.2 mg/dL (8.5-10.1); Potassium 4.4 meq/L (3.5-5.1)
[2018-02-01 09:16] LABS: Lymphocytes 14 % (9-44); Monocytes 2 % (0-8)
[2018-02-01 09:17] LABS: Dimorphic RBC Present; Platelet Estimate Normal (Normal); Platelet Morphology Normal (Normal)
[2018-02-01] MEDS: Azithromycin Inj 500 MG in Sodium Chlor 0.9% Inj 250 ML IV.SIG SCH (09:45)
--- NOTE | 2018-02-01 10:29 | XR ---
EXAM DATE: 02/01/2018 10:25 AM EST AGE/SEX: 52 years / Female INDICATIONS: Congestion. CLINICAL DATA: This is the patient's subsequent encounter. Patient reports that signs and symptoms h ave been present for 1 day and indicates a pain score of Nonresponsive. MEDICAL/SURGICAL HISTORY: . Hypertension. Diabetes mellitus type II. Hepatitis C. GERD, sepsis. . section. COMPARISON: [facility], CHEST 1V SINGLE AP, 01/27/2018. . FINDINGS: A single AP erect portable view of the chest was obtained and demonstrates interval increase in airsp amarilis opacity in the right lung with no focal consolidation. There is milder patchy opacity in the left lung. The tracheostomy tube remains in place. The feeding tube has been removed. The heart size veronica ins within normal limits and there is no effusion. The bony thorax is unremarkable. There are overlyi ng electrocardiogram leads. CONCLUSION: 1. Increased airspace opacity in the right lung compared to the prior study with no focal consolidat ion. 2. Interval removal of Dobbhoff feeding tube. Electronically signed by: Kip Landrum MD Board Certified Radiologist 02/01/2018 10:28 AM TRUONG Cuevas
--- NOTE | 2018-02-01 11:39 | P.PNGS ---
Subjective Interval history: Eyes closed No answering any questions Physical Exam Vital signs: Vital Signs 01/31/18 12:00 01/31/18 16:00 01/31/18 19:00 Temperature 98.5 F 98.2 F Pulse Rate 96 H 103 H Respiratory Rate 20 19 Blood Pressure 135/63 134/62 Pulse Oximetry 100 100 96 01/31/18 20:00 02/01/18 00:00 02/01/18 00:54 Temperature 98.6 F 99.1 F Pulse Rate 114 H 104 H 107 H Respiratory Rate 20 22 Blood Pressure 99/56 L 74/46 L Pulse Oximetry 96 92 L 02/01/18 03:00 02/01/18 03:30 02/01/18 04:00 Temperature Pulse Rate 116 H 112 H Respiratory Rate Blood Pressure 91/43 L 94/50 L Pulse Oximetry 02/01/18 04:45 02/01/18 08:00 02/01/18 10:46 Temperature 100.1 F H 98.9 F Pulse Rate 115 H 107 H Respiratory Rate 26 H 28 H Blood Pressure 90/52 L 88/51 L Pulse Oximetry 96 91 L 96 02/01/18 10:51 Temperature 97.7 F Pulse Rate 97 H Respiratory Rate 18 Blood Pressure 104/55 L Pulse Oximetry 92 L Intake & Output 01/31/18 02/01/18 02/01/18 18:59 06:59 18:59 Intake Total 1793 / 1793 2826 / 2826 100 / 100 Output Total 1100 / 1100 Balance 1793 / 1793 1726 / 1726 100 / 100 Intake: IV 1999 100 / 100 NS Inj 1,000 ML @ 1000 mls/hr 1999 IV.SIG BOLUS RICARDO Rx#:[id number] Flagyl 500 MG Inj 100 ML @ 100 100 / 100 mls/hr IV.SIG Q8H RICARDO Rx#: [id number] Oral 0 / 0 Tube Feeding 1193 / 1193 426 / 426 Water Bolus Amount 600 / 600 400 / 400 Intake (Blood Product) Amt 0 / 0 Rbc As-3 Leukoreduced Unit 0 / 0 [id number] Output: Stool 300 / 300 Urine Amount (Catheter) 400 / 400 Indwelling Urethral Catheter 400 / 400 Wound Vac Amount 400 / 400 back and L buttock 400 / 400 Other: Mode Setting Posterior Sacrum Continuous Continuous back and L buttock Continuous Continuous Narrative: Alert and awake Posterior wound vac in place; LEFT hip with moist to dry dressing--- no bleeding - Urinary Catheter Management Indwelling Urethral Catheter Cath placed during this visit: yes Urethral indwelling: Yes Reason for continuing: Severe pressure ulcer/wound Insertion date: 01/13/18 Insertion time: 01:00 1 Cath placed during this visit: yes, but has since been removed by the nurse Urethral indwelling: Yes Reason for continuing: Severe pressure ulcer/wound Insertion date: 12/15/17 Removal date: 01/13/18 Removal time: 01:00 Results - Labs 02/01/18 08:05 02/01/18 08:05 Laboratory Results - last 24 hr 01/31/18 01/31/18 01/31/18 12:47 17:06 21:43 WBC RBC Hgb Hct MCV MCH MCHC RDW Plt Count MPV Prelim Diff (Auto) Neut % (Auto) Lymph % (Auto) [place] % (Auto) Eos % (Auto) Baso % (Auto) Neut # (Auto) Lymph # (Auto) [place] # (Auto) Eos # (Auto) Baso # (Auto) WBC Differential Seg Neuts % (Manual) Band Neuts % (Manual) Lymphocytes % (Manual) Monocytes % (Manual) Abs Neuts (Manual) Differential Comment Platelet Estimate Platelet Morphology Dimorphic RBCs Sodium Potassium Chloride Carbon Dioxide Anion Gap BUN Creatinine Estimated GFR POC Glucose 342 H 273 H 220 H Random Glucose Lactic Acid Calcium Blood Type Antibody Screen MTS Gel Crossmatch 02/01/18 02/01/18 02/01/18 01:58 01:58 08:05 WBC 18.0 H RBC 1.85 L Hgb 7.5 L 6.0 L* Hct 23.6 L 17.8 L* MCV 96.5 MCH 32.5 MCHC 33.6 RDW 20.0 H Plt Count 179 MPV 10.9 Prelim Diff (Auto) Slide review pending Neut % (Auto) 75.8 H Lymph % (Auto) 18.9 [place] % (Auto) 4.8 Eos % (Auto) 0.1 Baso % (Auto) 0.4 Neut # (Auto) 13.6 H Lymph # (Auto) 3.4 [place] # (Auto) 0.9 Eos # (Auto) 0.0 Baso # (Auto) 0.1 WBC Differential Manual diff final Seg Neuts % (Manual) 78 H Band Neuts % (Manual) 6 Lymphocytes % (Manual) 14 Monocytes % (Manual) 2 Abs Neuts (Manual) 15.1 H Differential Comment . Platelet Estimate Normal Platelet Morphology Normal Dimorphic RBCs Present H Sodium Potassium Chloride Carbon Dioxide Anion Gap BUN Creatinine Estimated GFR POC Glucose Random Glucose Lactic Acid Calcium Blood Type O Negative Antibody Screen Negative MTS Gel Crossmatch 02/01/18 02/01/18 02/01/18 08:05 08:05 09:22 WBC RBC Hgb Hct MCV MCH MCHC RDW Plt Count MPV Prelim Diff (Auto) Neut % (Auto) Lymph % (Auto) [place] % (Auto) Eos % (Auto) Baso % (Auto) Neut # (Auto) Lymph # (Auto) [place] # (Auto) Eos # (Auto) Baso # (Auto) WBC Differential Seg Neuts % (Manual) Band Neuts % (Manual) Lymphocytes % (Manual) Monocytes % (Manual) Abs Neuts (Manual) Differential Comment Platelet Estimate Platelet Morphology Dimorphic RBCs Sodium 140 Potassium 4.4 Chloride 105 Carbon Dioxide 27.0 Anion Gap 8 BUN 35 H Creatinine 0.77 Estimated GFR 78 L POC Glucose Random Glucose 50 L Lactic Acid 1.2 Calcium 8.2 L Blood Type Antibody Screen MTS Gel Crossmatch See Detail - Imaging Imaging: ITS Impressions Femur X-Ray 12/15/17 07:05 CONCLUSION: No fracture is identified. There is extensive soft tissue air in the right gluteal region and extending into the proximal and mid posterior thigh. The soft tissue air suggests an open wound. Pelvis X-Ray 12/15/17 07:05 CONCLUSION: No fracture is identified. However, there is extensive soft tissue air in the left gluteal region and left proximal thigh. Pelvis CT 12/15/17 07:52 CONCLUSION: 1. No fracture is identified. 2. Extensive subcutaneous and soft tissue gas bilaterally, left greater than right. It is most severe in the left gluteal region and extends into the proximal posterior thigh. The soft tissue air dissects through the gluteal musculature. There is adjacent subcutaneous edema. Foot X-Ray 12/18/17 00:00 CONCLUSION: Remote small avulsion fracture at the fifth toe. No acute bony abnormality. Venous Doppler Study 12/22/17 00:00 CONCLUSION: Extensive deep vein thrombosis of the left upper extremity. Abdomen X-Ray 01/27/18 17:30 CONCLUSION: The feeding tube is looped in the stomach and the distal tip is in the gastric fundus. Chest X-Ray 02/01/18 09:23 CONCLUSION: 1. Increased airspace opacity in the right lung compared to the prior study with no focal consolidation. 2. Interval removal of Dobbhoff feeding tube. Assessment and Plan - Assessment (1) Fasciitis Code(s): M72.9 - Fibroblastic disorder, unspecified Status: Acute Plan: 52 year old female with wound on back, buttocks and bilateral thighs -Veraflow vac replaced today; will plan to change on Sunday -Continue to monitor LEFT hip wound -Hmg dropped today--- transfusing PRBCs -Patient pulled out Dobhoff--refusing replacement -Palliative Care following ---- patient currently DNR--- per notes has expressed some interest in comfort measures -Discussed with Tosin GOLDSTEIN - Attending Attestation patient seen at bedside continue vac changes dnr palliative The exam, history, and the medical decision-making described in the above note were completed with the assistance of the mid-level provider. I reviewed and agree with the findings presented. I attest that I had a [id number] encounter with the patient on the same day, and personally performed and documented my assessment and findings in the medical record.
[2018-02-01] MEDS: Lactic Acid (Ammonium Lactate) 12% Lotion 225 GM Bottle TOPICAL SCH ×2 (12:04→22:34)
[2018-02-01] MEDS: clonazePAM 0.5 MG Tablet NG/OG SCH ×2 (12:04→22:34)
[2018-02-01] MEDS: Lansoprazole ODT 15 MG Tablet NG/OG SCH (12:05)
[2018-02-01] MEDS: Senna/Docusate Sodium 8.6/50 MG Tablet NG/OG SCH ×2 (12:05→22:35)
[2018-02-01] MEDS: Metoprolol Tartrate 50 MG Tablet NG/OG SCH ×2 (12:05→22:35)
[2018-02-01] MEDS: Collagenase Oint 30 GM Tube TOPICAL SCH (12:06)
[2018-02-01] MEDS: Lisinopril 5 MG Tablet NG/OG SCH (12:06)
[2018-02-01] MEDS: Dextrose 50% in Water 50 ML Vial IV.PUSH PRN (12:22)
[2018-02-01] MEDS: Insulin Detemir Inj 1,000 UNIT/10 ML Vial SQ SCH ×2 (12:45→22:35)
--- NOTE | 2018-02-01 14:22 | P.PN ---
Subjective Interval history: Follow up for sepsis, necrotizing fascitis: Pt. seen and examined. Reviewed of yesterday's events. Pt. was noted bleeding again, from back wound. It was located to left hip, required surgicel and several silver nitrate sticks used for cauterizing. She again rebled overnight, per VISHAL Holt, clots were noted. Dr. Bazzi was contacted and evaluated pt. Bleeding stopped. Overnight, pt. became tachycardic and hypotensive, BP down to 74/46. Temp 100.6. Removed NGT last night, and doesn't want it reinserted. This morning, pt. opens eyes, trying to talk. Oriented to place, year, self. States that she is tired and wants to go home. Pt. now DNR. States that she is ready to go. Informed that she may without treatment, nutrition. She continues to mouth that she is ready. Physical Exam Vital signs: Vital Signs 01/31/18 16:00 01/31/18 19:00 01/31/18 20:00 Temperature 98.2 F 98.6 F Pulse Rate 103 H 114 H Respiratory Rate 19 20 Blood Pressure 134/62 99/56 L Pulse Oximetry 100 96 96 02/01/18 00:00 02/01/18 00:54 02/01/18 03:00 Temperature 99.1 F Pulse Rate 104 H 107 H 116 H Respiratory Rate 22 Blood Pressure 74/46 L 91/43 L Pulse Oximetry 92 L 02/01/18 03:30 02/01/18 04:00 02/01/18 04:45 Temperature 100.1 F H Pulse Rate 112 H 115 H Respiratory Rate 26 H Blood Pressure 94/50 L 90/52 L Pulse Oximetry 96 02/01/18 08:00 02/01/18 10:46 02/01/18 10:51 Temperature 98.9 F 97.7 F Pulse Rate 107 H 97 H Respiratory Rate 28 H 18 Blood Pressure 88/51 L 104/55 L Pulse Oximetry 91 L 96 92 L 02/01/18 12:00 Temperature 98.5 F Pulse Rate 95 H Respiratory Rate 26 H Blood Pressure 101/58 L Pulse Oximetry 91 L Intake & Output 01/31/18 02/01/18 02/01/18 18:59 06:59 18:59 Intake Total 1793 / 1793 2826 / 2826 200 / 200 Output Total 1100 / 1100 Balance 1793 / 1793 1726 / 1726 200 / 200 Intake: IV 1999 200 / 200 Zosyn 4.5 GM Premix 4.5 gm In 100 / 100 100 ml @ 200 mls/hr IV.SIG Q6H RICARDO Rx#:[id number] NS Inj 1,000 ML @ 1000 mls/hr 1999 IV.SIG BOLUS RICARDO Rx#:[id number] Flagyl 500 MG Inj 100 ML @ 100 100 / 100 mls/hr IV.SIG Q8H RICARDO Rx#: [id number] Oral 0 / 0 Tube Feeding 1193 / 1193 426 / 426 Water Bolus Amount 600 / 600 400 / 400 Intake (Blood Product) Amt 0 / 0 Rbc As-3 Leukoreduced Unit 0 / 0 [id number] Output: Stool 300 / 300 Urine Amount (Catheter) 400 / 400 Indwelling Urethral Catheter 400 / 400 Wound Vac Amount 400 / 400 back and L buttock 400 / 400 Other: Mode Setting Posterior Sacrum Continuous Continuous back and L buttock Continuous Continuous Narrative: General: Cachectic middle-aged woman, on T-piece via tracheostomy. Chronically ill appearing. Lungs: Supplemental oxygen through tracheostomy. Coarse breath sounds, upper lobes. Heart: RRR. No M/R/G Abdomen: Soft, no guarding, nondistended, nontender, bowel sounds active Back: Wound vac noted saturated with blood, dressing changed per wound care. No active bleeding after dressing changes. : Flexiseal in place. Musculoskeletal: Warm, well perfused, status post below-knee amputation right side, well-healed. Left foot with dressing in place. Neurological: Pt. awakes to voice, attempting to speak over trach. Oriented to self, place, year. Follows commands. - Urinary Catheter Management Indwelling Urethral Catheter Cath placed during this visit: yes Urethral indwelling: Yes Reason for continuing: Severe pressure ulcer/wound Insertion date: 01/13/18 Insertion time: 01:00 1 Cath placed during this visit: yes, but has since been removed by the nurse Urethral indwelling: Yes Reason for continuing: Severe pressure ulcer/wound Insertion date: 12/15/17 Removal date: 01/13/18 Removal time: 01:00 Results - Labs CBC & Chem 7: 02/01/18 08:05 02/01/18 08:05 Laboratory Results - last 24 hr 01/31/18 01/31/18 02/01/18 17:06 21:43 01:58 WBC RBC Hgb 7.5 L Hct 23.6 L MCV MCH MCHC RDW Plt Count MPV Prelim Diff (Auto) Neut % (Auto) Lymph % (Auto) [place] % (Auto) Eos % (Auto) Baso % (Auto) Neut # (Auto) Lymph # (Auto) [place] # (Auto) Eos # (Auto) Baso # (Auto) WBC Differential Seg Neuts % (Manual) Band Neuts % (Manual) Lymphocytes % (Manual) Monocytes % (Manual) Abs Neuts (Manual) Differential Comment Platelet Estimate Platelet Morphology Dimorphic RBCs Sodium Potassium Chloride Carbon Dioxide Anion Gap BUN Creatinine Estimated GFR POC Glucose 273 H 220 H Random Glucose Lactic Acid Calcium Blood Type Antibody Screen MTS Gel Crossmatch 02/01/18 02/01/18 02/01/18 01:58 08:05 08:05 WBC 18.0 H RBC 1.85 L Hgb 6.0 L* Hct 17.8 L* MCV 96.5 MCH 32.5 MCHC 33.6 RDW 20.0 H Plt Count 179 MPV 10.9 Prelim Diff (Auto) Slide review pending Neut % (Auto) 75.8 H Lymph % (Auto) 18.9 [place] % (Auto) 4.8 Eos % (Auto) 0.1 Baso % (Auto) 0.4 Neut # (Auto) 13.6 H Lymph # (Auto) 3.4 [place] # (Auto) 0.9 Eos # (Auto) 0.0 Baso # (Auto) 0.1 WBC Differential Manual diff final Seg Neuts % (Manual) 78 H Band Neuts % (Manual) 6 Lymphocytes % (Manual) 14 Monocytes % (Manual) 2 Abs Neuts (Manual) 15.1 H Differential Comment . Platelet Estimate Normal Platelet Morphology Normal Dimorphic RBCs Present H Sodium 140 Potassium 4.4 Chloride 105 Carbon Dioxide 27.0 Anion Gap 8 BUN 35 H Creatinine 0.77 Estimated GFR 78 L POC Glucose Random Glucose 50 L Lactic Acid Calcium 8.2 L Blood Type O Negative Antibody Screen Negative MTS Gel Crossmatch 02/01/18 02/01/18 02/01/18 08:05 09:22 12:17 WBC RBC Hgb Hct MCV MCH MCHC RDW Plt Count MPV Prelim Diff (Auto) Neut % (Auto) Lymph % (Auto) [place] % (Auto) Eos % (Auto) Baso % (Auto) Neut # (Auto) Lymph # (Auto) [place] # (Auto) Eos # (Auto) Baso # (Auto) WBC Differential Seg Neuts % (Manual) Band Neuts % (Manual) Lymphocytes % (Manual) Monocytes % (Manual) Abs Neuts (Manual) Differential Comment Platelet Estimate Platelet Morphology Dimorphic RBCs Sodium Potassium Chloride Carbon Dioxide Anion Gap BUN Creatinine Estimated GFR POC Glucose 40 L* Random Glucose Lactic Acid 1.2 Calcium Blood Type Antibody Screen MTS Gel Crossmatch See Detail 02/01/18 12:42 WBC RBC Hgb Hct MCV MCH MCHC RDW Plt Count MPV Prelim Diff (Auto) Neut % (Auto) Lymph % (Auto) [place] % (Auto) Eos % (Auto) Baso % (Auto) Neut # (Auto) Lymph # (Auto) [place] # (Auto) Eos # (Auto) Baso # (Auto) WBC Differential Seg Neuts % (Manual) Band Neuts % (Manual) Lymphocytes % (Manual) Monocytes % (Manual) Abs Neuts (Manual) Differential Comment Platelet Estimate Platelet Morphology Dimorphic RBCs Sodium Potassium Chloride Carbon Dioxide Anion Gap BUN Creatinine Estimated GFR POC Glucose 161 H Random Glucose Lactic Acid Calcium Blood Type Antibody Screen MTS Gel Crossmatch - Imaging Impressions Chest X-Ray 02/01/18 09:23 CONCLUSION: 1. Increased airspace opacity in the right lung compared to the prior study with no focal consolidation. 2. Interval removal of Dobbhoff feeding tube. - Procedures lumbar wd debridement with wd vac Assessment and Plan - Assessment (1) Fasciitis Code(s): M72.9 - Fibroblastic disorder, unspecified Status: Acute - Plan 52 year old female was initially critically ill and in septic shock with necrotizing fasciitis emanating from a deep chronic sacral decubitus ulcer. She has required multiple OR trips for I&D and VAC changes. Family request continued aggressive care. She had a recurrent bout of severe sepsis on 01/14 but after 2 debridements, she has improved. Now on T-piece, hemodynamically stable, however due to the declining NG tube and colostomy, it may be difficult to manage her active wound healing. Initially with encephalopathic, now has resolved. Was weaned off Levophe. Myocardial dysfunction due to sepsis. Resolved Overnight, tachycardic and hypotensive overnight, WBC, 18, Temp 100.1 Pt. likely going septic again. Recent CAUTI, PSAE PNA, PSAE -BC done, continue to follow -Started on Zithromax and Zosyn -ID following -will order CXR now -continue with NS Necrotizing soft tissue infection - General surgery service following back wounds, scheduling debridement and continuation with wound VAC. Plastic, Dr. De La Rosa reviewed patient's case on January 24 and felt she was not a good candidate for skin grafting as a wounds are not ready. He is also recommending a diverting colostomy which the patient is refusing. Complex case as patient is declining some recommended treatments. -pt. bleeding from left hip yesterday x 2, required surgicel and several silver nitrate sticks used for cauterizing. Wound vac reapplied. She bled again last night, clots noted. -d/w Roseanna Andrade, wound vac to continue. No active bleeding today. Acute hypoxic and hypercarbic respiratory failure- persistent - s/p Trach in OR 12/28/17. -Tolerating T-piece -tachycardic, inc. reymundo, will check CXR. Diabetes mellitus type II, initially uncontrolled, insulin-dependent, no active complications Severe hyperglycemia. Improved, now becoming hypoglycemic as she again removed NGT> - Med scale SSI. - Ongoing adjustments with basal insulin following episode of sepsis, requirements now declining -removed NGT, blood glucose trending low. Hold Levemir this morning. May need carb source if she continues to refuse NGT placement Acute protein calorie malnutrition- severe Has refused peg tube placement - Follow prealbumin weekly - Dignishield placed to protect wounds from soilage. - Follow prealbumin weekly. - Pulled out NGT last night, refusing placement of dobhoff. -will change to D5 1/2 NS at 84/hr Acute kidney injury resolved - Tristan required for hourly urine output and to protect perineal region. - May ultimately require colostomy to protect this region however patient has declined. -Per previous provider cannot think of a solution to the problem of continuous wound soilage. Refused colostomy Left upper extremity DVT Anemia. HH now trending down - DVT left internal jugular, subclavian, axillary and distal arm veins. - Cannot anticoagulate secondary to blood loss anemia requiring blood transfusion, frequent surgeries. - Arterial inflow into the left arm and hand is good. -HH dropped due to bleeding from left buttock wound, HH 08/05.8. Will transfuse 2 units PRBC -Hold Lovenox Pepcid for GI ulcer prophylaxis SCDs for DVT prophylaxis, will hold Lovenox due to bleeding. Appreciate palliative care input, pt. now DNR. pt. expressed desire for comfort care. spoke to Serena Szymanski APRN yesterday Today, pt. continues to express desire to stop care and wants to go home. Emotional support provided. D/W Erin, she will reach out to . Overall. pt has poor prognosis, she will require more surgeries in the future, continues to decline. Appears she is becoming septic again and may require pressor support if no improvement. Code Status: DNR Discussed Condition With: RN, pt, palliative care, Roseanna Andrade APRN Discharge Planning: Not ready for dc yet.
--- NOTE | 2018-02-01 15:10 | P.PNPAL ---
Reason for Visit Reason for visit: a. To assist with evaluation and management of symptoms including: dyspnea, debility, pain b. To assist medical decision maker(s) with: better understanding of current medical conditions; weighing benefits/burdens of medical treatment options; making medical treatment decisions. Subjective Subjective/Interval History: Patient seen and examined in LTVU. No family at bedside. Left message for to return call to provide medical update. d/w attending INCIDENT RESPONSE ANALYST. Pt with bleeding overnight from back wounds- surgery notified, bleeding stopped w silver nitrate sticks. H&H down today,6.0/17.8. WBC up to 18. ordered for transfusion 2 U RBC. S/p transfusion 1 unit, IV no longer patent after. 2nd unit awaiting new iV to be established, IV team consulted. Tachycardic, hypotensive episodes. may require pressors, ICU if goals aggressive. dobhoff pulled out, pt refuses to allow replacement. Medical attending notes that pt cont to want DNR status and to be expressing that she is ready to go home. Pt seen in room no visitor present. She is awake and alert, mostly oriented. Able to communicate effectively mouthing words. On oxygen via t-piece to trach. She reports pain in her back . She tells me she is tired. She says she wants to go home on Sunday. Explore today is Sunday, she says then home today or Sunday. Explore her wounds, blood loss, weakness, and infections- she says she wants to go home because she is not getting better here. Review that if she stops aggressive treatments she will , she nods yes, and mouths she is ready. She says she just wants to go home. Explore that she cannot live alone at home, not certain her can care for her. Explore hospice is an option however they also do not provide 24/7 care. Review she could go to a hospice facility to be comfortable, cared for until end of life. She says home. She is tearful at times. Review blood transfusion with her, ask if she wishes to continue with transfusions, she shrugs her shoulders. She again insists she wants to go home and wants no more stuff. She moves all four extremities, asked to be turned to her side, assisted her to place pillow behind backside, she grabs side rail and is able to provide assist for turning. d/w nurse, d/w med attending INCIDENT RESPONSE ANALYST. Advance Directives Living Will: Never completed Health Care Surrogate: Never completed Health Care Surrogate Name and Number: HCP Tyrone Middleton Documented care wishes:: No known documented care wishes have been completed Objective Vital Signs: Vital Signs 01/31/18 16:00 01/31/18 19:00 01/31/18 20:00 Temperature 98.2 F 98.6 F Pulse Rate 103 H 114 H Respiratory Rate 19 20 Blood Pressure 134/62 99/56 L Pulse Oximetry 100 96 96 02/01/18 00:00 02/01/18 00:54 02/01/18 03:00 Temperature 99.1 F Pulse Rate 104 H 107 H 116 H Respiratory Rate 22 Blood Pressure 74/46 L 91/43 L Pulse Oximetry 92 L 02/01/18 03:30 02/01/18 04:00 02/01/18 04:45 Temperature 100.1 F H Pulse Rate 112 H 115 H Respiratory Rate 26 H Blood Pressure 94/50 L 90/52 L Pulse Oximetry 96 02/01/18 08:00 02/01/18 10:46 02/01/18 10:51 Temperature 98.9 F 97.7 F Pulse Rate 107 H 97 H Respiratory Rate 28 H 18 Blood Pressure 88/51 L 104/55 L Pulse Oximetry 91 L 96 92 L 02/01/18 12:00 Temperature 98.5 F Pulse Rate 95 H Respiratory Rate 26 H Blood Pressure 101/58 L Pulse Oximetry 91 L Intake & Output 01/31/18 02/01/18 02/01/18 18:59 06:59 18:59 Intake Total 1793 / 1793 2826 / 2826 700 / 700 Output Total 1100 / 1100 Balance 1793 / 1793 1726 / 1726 700 / 700 Intake: IV 1999 300 / 300 Zosyn 4.5 GM Premix 4.5 gm In 200 / 200 100 ml @ 200 mls/hr IV.SIG Q6H RICARDO Rx#:[id number] NS Inj 1,000 ML @ 1000 mls/hr 1999 IV.SIG BOLUS RICARDO Rx#:[id number] Flagyl 500 MG Inj 100 ML @ 100 100 / 100 mls/hr IV.SIG Q8H RICARDO Rx#: [id number] Oral 0 / 0 Tube Feeding 1193 / 1193 426 / 426 Water Bolus Amount 600 / 600 400 / 400 Intake (Blood Product) Amt 400 / 400 Rbc As-3 Leukoreduced Unit 400 / 400 [id number] Output: Stool 300 / 300 Urine Amount (Catheter) 400 / 400 Indwelling Urethral Catheter 400 / 400 Wound Vac Amount 400 / 400 back and L buttock 400 / 400 Other: Mode Setting Posterior Sacrum Continuous Continuous back and L buttock Continuous Continuous Physical Exam: CONSTITUTIONAL/GENERAL: This is a chronically ill appearing female who looks older than her stated age. TUBES/LINES/DRAINS: Tracheostomy, wound VAC, heel boots SKIN: Very pale. Scattered ecchymosis to upper extremities, torso, neck. Wound VAC in place low back with blood-tinged drainage in VAC canister. Skin warm/dry, flaky/scaling in places EYES: Pupils equal and round, reactive. No scleral icterus. No injection or drainage. ENT: Nose without bleeding or purulent drainage. Moist oral mucosa. CARDIOVASCULAR: Regular rate and rhythm. 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 Respiration even/unlabored. Lungs w scattered rhonchi. +beige drainage at trach site. GASTROINTESTINAL: Abdomen soft, non-tender, mildly distended. No guarding. Bowel sounds active . GENITOURINARY: Without palpable bladder distension. MUSCULOSKELETAL: Status post right BKA. Left foot cool to touch; dressing to foot. Post tib pulse palpable NEUROLOGICAL: Awake, nods to yes/no questions. Answers questions appropriately. Mouths words, able to understand most of what she is trying to mouth. Follows simple commands. moves 4 extremities. PSYCHIATRIC: Calm, tearful at times. Diagnostic Tests Laboratory: Laboratory Results - last 72 hr 01/29/18 01/29/18 01/30/18 15:01 21:48 04:29 WBC RBC Hgb Hct MCV MCH MCHC RDW Plt Count MPV Prelim Diff (Auto) Neut % (Auto) Lymph % (Auto) [place] % (Auto) Eos % (Auto) Baso % (Auto) Neut # (Auto) Lymph # (Auto) [place] # (Auto) Eos # (Auto) Baso # (Auto) WBC Differential Seg Neuts % (Manual) Band Neuts % (Manual) Lymphocytes % (Manual) Monocytes % (Manual) Abs Neuts (Manual) Differential Comment Platelet Estimate Platelet Morphology Dimorphic RBCs Sodium Potassium Chloride Carbon Dioxide Anion Gap BUN Creatinine Estimated GFR POC Glucose 176 H 124 H 100 Random Glucose Lactic Acid Calcium Blood Type Antibody Screen MTS Gel Crossmatch 01/30/18 01/30/18 01/30/18 08:00 12:47 16:57 WBC RBC Hgb Hct MCV MCH MCHC RDW Plt Count MPV Prelim Diff (Auto) Neut % (Auto) Lymph % (Auto) [place] % (Auto) Eos % (Auto) Baso % (Auto) Neut # (Auto) Lymph # (Auto) [place] # (Auto) Eos # (Auto) Baso # (Auto) WBC Differential Seg Neuts % (Manual) Band Neuts % (Manual) Lymphocytes % (Manual) Monocytes % (Manual) Abs Neuts (Manual) Differential Comment Platelet Estimate Platelet Morphology Dimorphic RBCs Sodium Potassium Chloride Carbon Dioxide Anion Gap BUN Creatinine Estimated GFR POC Glucose 85 91 109 Random Glucose Lactic Acid Calcium Blood Type Antibody Screen MTS Gel Crossmatch 01/30/18 01/30/18 01/30/18 20:20 20:23 21:24 WBC RBC Hgb Hct MCV MCH MCHC RDW Plt Count MPV Prelim Diff (Auto) Neut % (Auto) Lymph % (Auto) [place] % (Auto) Eos % (Auto) Baso % (Auto) Neut # (Auto) Lymph # (Auto) [place] # (Auto) Eos # (Auto) Baso # (Auto) WBC Differential Seg Neuts % (Manual) Band Neuts % (Manual) Lymphocytes % (Manual) Monocytes % (Manual) Abs Neuts (Manual) Differential Comment Platelet Estimate Platelet Morphology Dimorphic RBCs Sodium Potassium Chloride Carbon Dioxide Anion Gap BUN Creatinine Estimated GFR POC Glucose 62 L 65 L Random Glucose 144 H Lactic Acid Calcium Blood Type Antibody Screen MTS Gel Crossmatch 01/30/18 01/31/18 01/31/18 21:42 08:03 12:47 WBC RBC Hgb Hct MCV MCH MCHC RDW Plt Count MPV Prelim Diff (Auto) Neut % (Auto) Lymph % (Auto) [place] % (Auto) Eos % (Auto) Baso % (Auto) Neut # (Auto) Lymph # (Auto) [place] # (Auto) Eos # (Auto) Baso # (Auto) WBC Differential Seg Neuts % (Manual) Band Neuts % (Manual) Lymphocytes % (Manual) Monocytes % (Manual) Abs Neuts (Manual) Differential Comment Platelet Estimate Platelet Morphology Dimorphic RBCs Sodium Potassium Chloride Carbon Dioxide Anion Gap BUN Creatinine Estimated GFR POC Glucose 139 H 297 H 342 H Random Glucose Lactic Acid Calcium Blood Type Antibody Screen MTS Gel Crossmatch 01/31/18 01/31/18 02/01/18 17:06 21:43 01:58 WBC RBC Hgb 7.5 L Hct 23.6 L MCV MCH MCHC RDW Plt Count MPV Prelim Diff (Auto) Neut % (Auto) Lymph % (Auto) [place] % (Auto) Eos % (Auto) Baso % (Auto) Neut # (Auto) Lymph # (Auto) [place] # (Auto) Eos # (Auto) Baso # (Auto) WBC Differential Seg Neuts % (Manual) Band Neuts % (Manual) Lymphocytes % (Manual) Monocytes % (Manual) Abs Neuts (Manual) Differential Comment Platelet Estimate Platelet Morphology Dimorphic RBCs Sodium Potassium Chloride Carbon Dioxide Anion Gap BUN Creatinine Estimated GFR POC Glucose 273 H 220 H Random Glucose Lactic Acid Calcium Blood Type Antibody Screen MTS Gel Crossmatch 02/01/18 02/01/18 02/01/18 01:58 08:05 08:05 WBC 18.0 H RBC 1.85 L Hgb 6.0 L* Hct 17.8 L* MCV 96.5 MCH 32.5 MCHC 33.6 RDW 20.0 H Plt Count 179 MPV 10.9 Prelim Diff (Auto) Slide review pending Neut % (Auto) 75.8 H Lymph % (Auto) 18.9 [place] % (Auto) 4.8 Eos % (Auto) 0.1 Baso % (Auto) 0.4 Neut # (Auto) 13.6 H Lymph # (Auto) 3.4 [place] # (Auto) 0.9 Eos # (Auto) 0.0 Baso # (Auto) 0.1 WBC Differential Manual diff final Seg Neuts % (Manual) 78 H Band Neuts % (Manual) 6 Lymphocytes % (Manual) 14 Monocytes % (Manual) 2 Abs Neuts (Manual) 15.1 H Differential Comment . Platelet Estimate Normal Platelet Morphology Normal Dimorphic RBCs Present H Sodium 140 Potassium 4.4 Chloride 105 Carbon Dioxide 27.0 Anion Gap 8 BUN 35 H Creatinine 0.77 Estimated GFR 78 L POC Glucose Random Glucose 50 L Lactic Acid Calcium 8.2 L Blood Type O Negative Antibody Screen Negative MTS Gel Crossmatch 02/01/18 02/01/18 02/01/18 08:05 09:22 12:17 WBC RBC Hgb Hct MCV MCH MCHC RDW Plt Count MPV Prelim Diff (Auto) Neut % (Auto) Lymph % (Auto) [place] % (Auto) Eos % (Auto) Baso % (Auto) Neut # (Auto) Lymph # (Auto) [place] # (Auto) Eos # (Auto) Baso # (Auto) WBC Differential Seg Neuts % (Manual) Band Neuts % (Manual) Lymphocytes % (Manual) Monocytes % (Manual) Abs Neuts (Manual) Differential Comment Platelet Estimate Platelet Morphology Dimorphic RBCs Sodium Potassium Chloride Carbon Dioxide Anion Gap BUN Creatinine Estimated GFR POC Glucose 40 L* Random Glucose Lactic Acid 1.2 Calcium Blood Type Antibody Screen MTS Gel Crossmatch See Detail 02/01/18 12:42 WBC RBC Hgb Hct MCV MCH MCHC RDW Plt Count MPV Prelim Diff (Auto) Neut % (Auto) Lymph % (Auto) [place] % (Auto) Eos % (Auto) Baso % (Auto) Neut # (Auto) Lymph # (Auto) [place] # (Auto) Eos # (Auto) Baso # (Auto) WBC Differential Seg Neuts % (Manual) Band Neuts % (Manual) Lymphocytes % (Manual) Monocytes % (Manual) Abs Neuts (Manual) Differential Comment Platelet Estimate Platelet Morphology Dimorphic RBCs Sodium Potassium Chloride Carbon Dioxide Anion Gap BUN Creatinine Estimated GFR POC Glucose 161 H Random Glucose Lactic Acid Calcium Blood Type Antibody Screen MTS Gel Crossmatch Result Diagrams: 02/01/18 08:05 02/01/18 08:05 Microbiology: Microbiology 12/24/17 12:20 Acid Fast Bacilli Smear - Final Tissue - Buttock No acid fast bacilli seen Mycobacterial Culture - Preliminary No growth in 5 weeks Imaging: Impressions Chest X-Ray 02/01/18 09:23 CONCLUSION: 1. Increased airspace opacity in the right lung compared to the prior study with no focal consolidation. 2. Interval removal of Dobbhoff feeding tube. Procedures: 12/15/2017: Endotracheal intubation 12/15/2017: Left subclavian central line placement 12/15/2017: NGT placement 12/15/2017: I&D with wound HEMOVAC placement 12/18/2017: I&D with wound VAC change 12/21/2017: I&D with wound VAC change 12/24/2017: I&D with wound VAC change 12/28/2017: perc trach, wound vac change to back, buttock, posterior thigh 12/31/2017: I&D with wound VAC change, removal of coccyx bone 01/04/2018: I&D with wound VAC change 01/08/2018: I&D with wound VAC change, partial closure Assessment and Plan - Disease Oriented Problem List (1) Septic shock with acute organ dysfunction due to anaerobic bacteria (2) Acute respiratory failure (3) Type 2 diabetes mellitus with hyperosmolar nonketotic hyperglycemia (4) Necrotizing fasciitis (5) MARIO (acute kidney injury) (6) Lactic acidosis (7) Hypernatremia Pertinent Non-Medical Issues: Psychosocial:Originally from [place]. Currently . Spiritual: No taoism affiliation. Legal: Per [place] statutes, in the absence of written advanced directives health care proxy decision making will fall to the patient's , Tyrone. Patient is capacitated to make her own health care decisions. Ethical issues impacting care: No known ethical issues impacting care at this time. Important Contacts: Tyrone Middleton, : [phone] Sister Linette Lebron , Prognosis: Patient is critically ill and in septic shock with necrotizing fasciitis secondary to a chronic sacral decubitus. Upon arrival to the ED, the patient was hyperglycemic with a blood glucose of 610, severely dehydrated and in profound shock. She is intubated on mechanical ventilation requiring pressor support status post wide excision of the involved soft tissue. Patient will require further debridement in the future. She remains hemodynamically unstable and critically ill. Now declining, may not survive this hospitalization. Very poor overall prognosis for meaningful recovery. Code Status: No Code DNR Plan: * NO CODE. Risks, benefits and limitations of CPR were discussed at length with patient and later her to notify of patient election of NO CODE status, patient signed [place] DNR order, aware. * HEALTHCARE DECISION-MAKING: Patient is capacitated to make her own health care decisions. Per [place] statute, in the absence of written advanced directives healthcare proxy decision making falls to the patient's , Tyrone Nabordannielle. He has accepted this role. * GOALS OF CARE: DNR, patient seems to be considering comfort measures,/hospice , wants to speak with her . She wants to go home, not sure this will be possible, she is not interested in hospice care center. Spouse unable to visit patient until 02/04/18 due to work schedule. Attempting to arrange family meeting 02/04/18 to further clarify goals of medical treatment. VM left for today. * Symptom management: = Pain: Multifactorial. Patient has a long history of chronic conditions. Possible contributing factors include severe peripheral arterial disease, recent BKA, peripheral neuropathy, sepsis, necrotizing fasciitis, invasive lines, immobility. Was previously on fentanyl patch 50 mcg q72hrs. Has PRN Hydrocodone and Morphine. yesterday recommended restart Fentanyl and increase PRN Morphine. +hypotension in the past 24 hrs, cautious use of opiates , may require pressors, though SBP now 100+ post blood transfusion. = Debility/profound physical deconditioning: Patient with uncontrolled diabetes with severe peripheral arterial disease and smoking. 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 Debility anticipated to worsen. has been back in ICU on vent, which further set back restorative efforts. now off vent, now in LTVU. = Dyspnea: trach to t-piece, denies shortness of breath. * Palliative care will continue to follow this patient throughout her hospitalization to establish trust, assist with symptom management and clarification of medical treatment goals. Attestation Attestation: To help prompt me to consider important information that might be impacting today's encounter and assessment, information from prior notes written by myself or my colleagues may have been "brought forward" into today's note. My signature on this note, however, is an attestation that I personally performed the exam, history, and/or decision-making noted today, and, unless otherwise indicated, the interactions with patient, family, and staff as well as the review of records all occurred today. I also attest that the listed assessment and stated plan reflect my best clinical judgment today based on the combination of historical information, prior notes, and today's exam/ interactions. When time spent is documented, it refers only to time spent today by the signer, or if indicated, combined time spent today by collaborating physician/nurse practitioner.
[2018-02-01] MEDS: Dextrose 5%/NaCl 0.45% Inj 1,000 ML IV.CONT SCH (17:54)
[2018-02-01] MEDS: Morphine Sulfate Inj 2 MG/ML Vial IM PRN (22:58)
[2018-02-02] MEDS: Morphine Sulfate Inj 2 MG/ML Vial IM PRN ×3 (07:29→20:24)
[2018-02-02] MEDS: Dextrose 5%/NaCl 0.45% Inj 1,000 ML IV.CONT SCH ×2 (07:38→13:15)
[2018-02-02] MEDS: Oral Hygiene Kit OROPHARYNG SCH ×4 (07:38→16:16)
[2018-02-02] MEDS: Piperacil/Tazo 4.5 GM Premix 4.5 GM/100 ML BAG IV.SIG SCH ×4 (07:44→23:14)
[2018-02-02] MEDS: Azithromycin Inj 500 MG in Sodium Chlor 0.9% Inj 250 ML IV.SIG SCH (08:00)
[2018-02-02] MEDS: Chlorhexidine 0.12% Oral Kit 15 ML UDC OROPHARYNG SCH ×2 (08:00→21:03)
[2018-02-02] MEDS: Insulin NovoLIN Regular Correctional Sugar Inj SQ SCH ×6 (08:00→21:09)
[2018-02-02] MEDS: Lactic Acid (Ammonium Lactate) 12% Lotion 225 GM Bottle TOPICAL SCH ×2 (09:00→20:30)
[2018-02-02] MEDS: Metoprolol Tartrate 50 MG Tablet NG/OG SCH ×2 (09:00→21:08)
[2018-02-02] MEDS: Collagenase Oint 30 GM Tube TOPICAL SCH (09:00)
[2018-02-02] MEDS: Insulin Detemir Inj 1,000 UNIT/10 ML Vial SQ SCH ×2 (09:00→21:04)
[2018-02-02] MEDS: clonazePAM 0.5 MG Tablet NG/OG SCH ×2 (09:00→21:04)
[2018-02-02] MEDS: Lansoprazole ODT 15 MG Tablet NG/OG SCH (09:00)
[2018-02-02] MEDS: Senna/Docusate Sodium 8.6/50 MG Tablet NG/OG SCH ×2 (09:00→21:09)
[2018-02-02] MEDS: hydrALAZINE 50 MG Tablet NG/OG SCH ×3 (09:00→18:00)
--- NOTE | 2018-02-02 09:23 | P.PN ---
Subjective Interval history: Follow up for sepsis, necrotizing fascitis: Pt. seen and examined. Pt. has been refusing medication, reinsertion of PIV, NGT, meds, accuchecks, labs. Examined today, awake, mouthing words. States she is going home today at 1000am . Pt tearful, states she is "done" and is ready to go. Again, discussed logistics of going home, she would need care. Adamantly refuses going to care center. Explained that we have contacted . She begins to cry. Asked if we could at least start IV to keep her hydrated and give her meds for anxiety and pain, she refuses. Tells me she is at [place] and is 2018. Verbalizes that she is tired and not getting better. No bleeding from wound overnight 1300-spoke to at length. States that he doesn't understand why pt suddenly wants to come home. Believes she is giving up or depressed, but doesn' t agree with her decision. Wants to come and talk to her however he is working over the weekend. He will be here Sunday at 6pm to talk to her and if available to meet he will talk to palliative care team. I asked if we set up a meeting for Sunday during the day, however he is working. He is upset that she is DNR now. Wants me to convince her to restart treatment. Explained that she is refusing care, including labs, PIV/NGT, antibiotics, nutrition. Discussed at length conversation we had today and her wishes to forego treatment. Explained option of hospice care center as a viable option for pt.'s comfort. He wants to speak to her first. We agreed to meet on Sunday around 6pm. Physical Exam Vital signs: Vital Signs 02/01/18 10:35 02/01/18 10:40 02/01/18 10:46 Temperature 97.7 F 97.8 F Pulse Rate 88 89 Respiratory Rate 18 18 Blood Pressure 98/55 L 101/58 L Pulse Oximetry 94 L 95 96 02/01/18 10:51 02/01/18 12:00 02/01/18 13:00 Temperature 97.7 F 98.5 F Pulse Rate 97 H 95 H Respiratory Rate 18 26 H 18 Blood Pressure 104/55 L 101/58 L Pulse Oximetry 92 L 91 L 02/01/18 16:00 02/01/18 16:09 02/01/18 20:00 Temperature 97.3 F L 98.5 F Pulse Rate 90 95 H 97 H Respiratory Rate 24 18 20 Blood Pressure 139/67 114/57 L Pulse Oximetry 100 95 99 02/01/18 21:11 02/02/18 00:00 02/02/18 04:00 Temperature 98.4 F 98.9 F Pulse Rate 98 H 104 H 109 H Respiratory Rate 20 20 20 Blood Pressure 121/58 L 119/57 L Pulse Oximetry 99 96 02/02/18 04:14 02/02/18 08:00 Temperature 98.6 F Pulse Rate 105 H 99 H Respiratory Rate 25 H 12 Blood Pressure 122/60 Pulse Oximetry 99 97 Intake & Output 02/01/18 02/02/18 02/02/18 18:59 06:59 18:59 Intake Total 700 / 700 1250 / 1250 Output Total 450 / 450 Balance 250 / 250 1250 / 1250 Intake: IV 300 / 300 1250 / 1250 NS Inj 1,000 ML @ 125 mls/hr IV 1000 / 1000 .CONT .Q8H RICARDO Rx#:[id number] Azithromycin Inj 500 MG In NS 250 / 250 Inj 250 ML @ 250 mls/hr IV.SIG Q24H RICARDO Rx#:[id number] Zosyn 4.5 GM Premix 4.5 gm In 200 / 200 100 ml @ 200 mls/hr IV.SIG Q6H RICARDO Rx#:[id number] Flagyl 500 MG Inj 100 ML @ 100 100 / 100 mls/hr IV.SIG Q8H RICARDO Rx#: [id number] Oral 0 / 0 Intake (Blood Product) Amt 400 / 400 Rbc As-3 Leukoreduced Unit 400 / 400 [id number] Output: Urine Amount (Catheter) 300 / 300 Indwelling Urethral Catheter 300 / 300 Wound Vac Amount 150 / 150 back and L buttock 150 / 150 Other: Mode Setting Posterior Sacrum Continuous back and L buttock Continuous # Incontinent Voids 2 Date of Last Bowel Movement 01/29/18 Narrative: General: Cachectic middle-aged woman, on T-piece via tracheostomy. Chronically ill appearing. Lungs: Supplemental oxygen through tracheostomy. Intermittent ronchi. Heart: RRR. No M/R/G Abdomen: Soft, no guarding, nondistended, nontender, bowel sounds active Back: Wound vac noted saturated with blood, dressing changed per wound care. No active bleeding after dressing changes. : Flexiseal in place. Musculoskeletal: Warm, well perfused, status post below-knee amputation right side, well-healed. Left foot with dressing in place. Left pedal pulse 2+ Neurological: Pt. awake, oriented x 2. Following commands. Talks softy, has trach. No focal deficits. Tearful. - Urinary Catheter Management Indwelling Urethral Catheter Cath placed during this visit: yes Urethral indwelling: Yes Reason for continuing: Severe pressure ulcer/wound Insertion date: 01/13/18 Insertion time: 01:00 1 Cath placed during this visit: yes, but has since been removed by the nurse Urethral indwelling: Yes Reason for continuing: Severe pressure ulcer/wound Insertion date: 12/15/17 Removal date: 01/13/18 Removal time: 01:00 Results - Labs CBC & Chem 7: 02/01/18 08:05 02/01/18 08:05 Laboratory Results - last 24 hr 02/01/18 02/01/18 02/01/18 09:22 12:17 12:42 POC Glucose 40 L* 161 H MTS Gel Crossmatch See Detail - Imaging Impressions Chest X-Ray 02/01/18 09:23 CONCLUSION: 1. Increased airspace opacity in the right lung compared to the prior study with no focal consolidation. 2. Interval removal of Dobbhoff feeding tube. - Procedures lumbar wd debridement with wd vac Assessment and Plan - Assessment (1) Fasciitis Code(s): M72.9 - Fibroblastic disorder, unspecified Status: Acute - Plan 52 year old female was initially critically ill and in septic shock with necrotizing fasciitis emanating from a deep chronic sacral decubitus ulcer. She has required multiple OR trips for I&D and VAC changes. Family request continued aggressive care. She had a recurrent bout of severe sepsis on 01/14 but after 2 debridements, she has improved. Now on T-piece, hemodynamically stable, however due to the declining NG tube and colostomy, it may be difficult to manage her active wound healing. Initially with encephalopathic, now has resolved. Was weaned off Levophe. Myocardial dysfunction due to sepsis. Resolved Overnight, tachycardic and hypotensive overnight, WBC, 18, Temp 100.1 Pt. likely going septic again. Recent CAUTI, PSAE PNA, PSAE -BC done, continue to follow -Started on Zithromax and Zosyn -ID following -CXR -inc. right lung opacity. Likely PNA -refusing IVF and abx. -afebrile, HR better. Refusing treatment Necrotizing soft tissue infection - General surgery service following back wounds, scheduling debridement and continuation with wound VAC. Plastic, Dr. De La Rosa reviewed patient's case on January 24 and felt she was not a good candidate for skin grafting as a wounds are not ready. He is also recommending a diverting colostomy which the patient is refusing. Complex case as patient is declining some recommended treatments. -pt. bleeding from left hip yesterday 01/31, required surgicel and several silver nitrate sticks used for cauterizing. Wound vac reapplied. She bled again last night, clots noted. -continue wound vac, no active bleeding Acute hypoxic and hypercarbic respiratory failure- persistent - s/p Trach in OR 12/28/17. -Tolerating T-piece -CXR results noted, inc. right lung opacity Diabetes mellitus type II, initially uncontrolled, insulin-dependent, no active complications Severe hyperglycemia. Improved, now becoming hypoglycemic as she again removed NGT> - Med scale SSI. - Ongoing adjustments with basal insulin following episode of sepsis, requirements now declining -removed NGT. Hold any insulin, pt. refusing accuchecks. Acute protein calorie malnutrition- severe Has refused peg tube placement - Follow prealbumin weekly - Dignishield placed to protect wounds from soilage. - Follow prealbumin weekly. - Pulled out NGT, refusing placement of dobhoff. -changed to D5 1/2 NS at 84/hr -refusing placement of PIV Acute kidney injury resolved - Tristan required for hourly urine output and to protect perineal region. - May ultimately require colostomy to protect this region however patient has declined. -Per previous provider cannot think of a solution to the problem of continuous wound soilage. Refused colostomy Left upper extremity DVT Anemia. HH now trending down - DVT left internal jugular, subclavian, axillary and distal arm veins. - Cannot anticoagulate secondary to blood loss anemia requiring blood transfusion, frequent surgeries. - Arterial inflow into the left arm and hand is good. -HH dropped due to bleeding from left buttock wound, HH 08/05.8. Ordered 2 units PRBC, only 1 transfused. PIV lost, pt. refused placement -Hold Lovenox -refused post transfusion HH, no active bleeding noted Pepcid for GI ulcer prophylaxis SCDs for DVT prophylaxis, continue to hold Lovenox due to bleeding. Appreciate palliative care input, pt. now DNR. D/W Mindy Gaby 02/01, pt. wants to go home not hospice. has not called back, messages left. D/W pt. at length that she could go to hospice care center to be more comfortable and allow to pass peacefully. She insists on wanting to go home. Hopefully can call back today. D/W RN to inform me as soon as he call. Overall. pt has poor prognosis, she will require more surgeries in the future, continues to decline. She is refusing care. Code Status: DNR Discussed Condition With: RN, pt Discharge Planning: Hospice appropriate if and pt. accept. Pt. refusing care.
[2018-02-02 17:27] LABS: Hemoglobin 7.2 gm/dL (11.6-15.3); Mean Corpuscular HGB Conc 34.2 % (32.0-36.0); Mean Corpuscular Hemoglobin 33.5 pg (27.0-34.0); Mean Corpuscular Volume 97.8 fL (80.0-100.0); Mean Platelet Volume 10.3 fL (7.0-11.0); Platelet Count 167 th/mm3 (150-450); Red Blood Count 2.15 mil/mm3 (4.00-5.30); Red Cell Distribution Width 18.4 % (11.6-17.2); White Blood Count 9.7 th/mm3 (4.0-11.0)
[2018-02-02 18:17] LABS: Anion Gap 8 meq/L (5-15); Blood Urea Nitrogen 23 mg/dL (7-18); Calcium 8.5 mg/dL (8.5-10.1); Carbon Dioxide 25.1 meq/L (21.0-32.0); Chloride 108 meq/L (98-107); Glomerular Filtration Rate Greater Than 89 mL/min (>89); Glucose,Random 157 mg/dL (74-106); Potassium 3.9 meq/L (3.5-5.1); Sodium 141 meq/L (136-145)
[2018-02-03] MEDS: Oral Hygiene Kit OROPHARYNG SCH ×4 (00:39→18:36)
[2018-02-03] MEDS: Morphine Sulfate Inj 2 MG/ML Vial IM PRN ×3 (00:51→20:59)
[2018-02-03] MEDS: Dextrose 5%/NaCl 0.45% Inj 1,000 ML IV.CONT SCH ×3 (00:58→21:09)
[2018-02-03] MEDS: Piperacil/Tazo 4.5 GM Premix 4.5 GM/100 ML BAG IV.SIG SCH ×4 (05:11→23:18)
[2018-02-03] MEDS: Azithromycin Inj 500 MG in Sodium Chlor 0.9% Inj 250 ML IV.SIG SCH (08:00)
[2018-02-03] MEDS: Chlorhexidine 0.12% Oral Kit 15 ML UDC OROPHARYNG SCH ×2 (12:17→20:58)
[2018-02-03] MEDS: Insulin NovoLIN Regular Correctional Sugar Inj SQ SCH ×4 (12:17→23:18)
[2018-02-03] MEDS: Lactic Acid (Ammonium Lactate) 12% Lotion 225 GM Bottle TOPICAL SCH ×2 (12:18→20:58)
[2018-02-03] MEDS: Senna/Docusate Sodium 8.6/50 MG Tablet NG/OG SCH ×2 (12:18→20:58)
[2018-02-03] MEDS: Insulin Detemir Inj 1,000 UNIT/10 ML Vial SQ SCH ×2 (12:18→21:58)
[2018-02-03] MEDS: Collagenase Oint 30 GM Tube TOPICAL SCH (12:18)
[2018-02-03] MEDS: Lansoprazole ODT 15 MG Tablet NG/OG SCH (12:18)
[2018-02-03] MEDS: Metoprolol Tartrate 50 MG Tablet NG/OG SCH ×2 (12:19→21:07)
[2018-02-03] MEDS: hydrALAZINE 50 MG Tablet NG/OG SCH ×3 (12:19→18:37)
[2018-02-03] MEDS: clonazePAM 0.5 MG Tablet NG/OG SCH ×2 (12:19→20:57)
[2018-02-03] MEDS: Morphine Inj 4 MG/ML Vial IV.PUSH PRN ×2 (12:49→16:48)
--- NOTE | 2018-02-03 14:55 | P.PN ---
Subjective Interval history: Follow up for sepsis, necrotizing fascitis: Pt. seen and examined, awake, has been writing on a board. VISHAL Westbrook at [facility] during conversation with pt. Pt. remains oriented x 2, provides hospital name, month, year. Wrote on paper that she wants to go home to be with . Writes that is coming at 6pm tomorrow. I explained that he is coming to talk to her but no arrangements have been made for her to go home. Again, reviewed her condition and that she will need around the clock care. Explained that she has not received IVFs, nutrition, antibiotics, checked on labs. She complains of pain, was given Morphine IM. After much discussion, she agrees to IV site for pain management. Wants something to drink and eat. Explained that she is not ready yet, still on TC and has secretions. Pt. is frustrated, adamant about going home. Explained that she will probably if treatment is stopped, she verbalizes and writes that she is ready and wants to at home wit her at her side. She wants me to promise her that I will speak to now so that he can come tomorrow. Spoke to at home, he is getting ready to go to work and can't come. States he will be in tomorrow by 6pm to speak to pt. and after he will decide. Explained that pt. is able to make decisions and she is looking for his support. Physical Exam Vital signs: Vital Signs 02/02/18 15:35 02/02/18 16:00 02/02/18 20:00 Temperature 99.5 F 98 F Pulse Rate 86 102 H 93 H Respiratory Rate 16 14 18 Blood Pressure 144/67 H 123/60 Pulse Oximetry 97 100 02/02/18 20:59 02/03/18 00:00 02/03/18 04:00 Temperature 96.8 F L 97.4 F L Pulse Rate 91 H 102 H 94 H Respiratory Rate 16 17 17 Blood Pressure 147/70 H 140/65 Pulse Oximetry 98 100 100 02/03/18 04:07 02/03/18 05:00 02/03/18 07:00 Temperature Pulse Rate 88 Respiratory Rate 20 22 Blood Pressure Pulse Oximetry 99 02/03/18 08:00 02/03/18 09:05 02/03/18 12:00 Temperature 97.2 F L 97.7 F Pulse Rate 101 H 98 H 104 H Respiratory Rate 20 14 20 Blood Pressure 143/66 H 161/74 H Pulse Oximetry 100 100 Intake & Output 02/02/18 02/03/18 02/03/18 18:59 06:59 18:59 Intake Total 0 / 0 0 / 0 Output Total 1700 / 1700 Balance 0 / 0 -1700 / -1700 Intake: Oral 0 / 0 0 / 0 Tube Feeding 0 / 0 Output: Urine 800 / 800 Stool 100 / 100 Urine Amount (Catheter) 400 / 400 Indwelling Urethral Catheter 400 / 400 Wound Vac Amount 400 / 400 back and L buttock 400 / 400 Other: Mode Setting Posterior Sacrum Continuous Continuous back and L buttock Continuous Continuous Date of Last Bowel Movement 01/29/18 02/03/18 Narrative: General: Cachectic middle-aged woman, on T-piece via tracheostomy. Chronically ill appearing. Lungs: Supplemental oxygen through tracheostomy. Intermittent ronchi. Heart: RRR. No M/R/G Abdomen: Soft, no guarding, nondistended, nontender, bowel sounds active Back: Wound vac noted saturated with blood, dressing changed per wound care. No active bleeding after dressing changes. : Flexiseal in place. Musculoskeletal: Warm, well perfused, status post below-knee amputation right side, well-healed. Left foot with dressing in place. Left pedal pulse 2+ Neurological: Pt. awake, oriented x 2-3. Writing on paper and also speaks softly around trach. Following commands. No focal deficits. - Urinary Catheter Management Indwelling Urethral Catheter Cath placed during this visit: yes Urethral indwelling: Yes Reason for continuing: Severe pressure ulcer/wound Insertion date: 01/13/18 Insertion time: 01:00 1 Cath placed during this visit: yes, but has since been removed by the nurse Urethral indwelling: Yes Reason for continuing: Severe pressure ulcer/wound Insertion date: 12/15/17 Removal date: 01/13/18 Removal time: 01:00 Results - Labs CBC & Chem 7: 02/02/18 16:57 02/02/18 16:57 Laboratory Results - last 24 hr 02/02/18 02/02/18 02/02/18 16:57 16:57 17:34 WBC 9.7 RBC 2.15 L Hgb 7.2 L Hct 21.0 L MCV 97.8 MCH 33.5 MCHC 34.2 RDW 18.4 H Plt Count 167 MPV 10.3 Sodium 141 Potassium 3.9 Chloride 108 H Carbon Dioxide 25.1 Anion Gap 8 BUN 23 H Creatinine 0.56 Estimated GFR Greater than 89 POC Glucose 186 H Random Glucose 157 H D Calcium 8.5 02/02/18 02/03/18 02/03/18 20:28 10:05 12:47 WBC RBC Hgb Hct MCV MCH MCHC RDW Plt Count MPV Sodium Potassium Chloride Carbon Dioxide Anion Gap BUN Creatinine Estimated GFR POC Glucose 140 H 187 H 202 H Random Glucose Calcium Microbiology 02/01/18 08:05 Blood - Peripheral Aerobic Blood Culture - Preliminary No growth in 2 days 02/01/18 08:05 Blood - Peripheral Anaerobic Blood Culture - Preliminary No growth in 2 days 02/01/18 07:51 Blood - Peripheral Aerobic Blood Culture - Preliminary No growth in 2 days 02/01/18 07:51 Blood - Peripheral Anaerobic Blood Culture - Preliminary No growth in 2 days - Procedures lumbar wd debridement with wd vac Assessment and Plan - Assessment (1) Fasciitis Code(s): M72.9 - Fibroblastic disorder, unspecified Status: Acute - Plan 52 year old female was initially critically ill and in septic shock with necrotizing fasciitis emanating from a deep chronic sacral decubitus ulcer. She has required multiple OR trips for I&D and VAC changes. Family request continued aggressive care. She had a recurrent bout of severe sepsis on 01/14 but after 2 debridements, she has improved. Now on T-piece, hemodynamically stable, however due to the declining NG tube and colostomy, it may be difficult to manage her active wound healing. Initially with encephalopathic, now has resolved. Was weaned off Levophe. Myocardial dysfunction due to sepsis. Resolved Overnight, tachycardic and hypotensive overnight, WBC, 18, Temp 100.1 Pt. likely going septic again. Recent CAUTI, PSAE PNA, PSAE -BC done, continue to follow -Started on Zithromax and Zosyn -ID following -CXR -inc. right lung opacity. Likely PNA -refusing IVF and abx. -afebrile, HR better. Refusing treatment Necrotizing soft tissue infection - General surgery service following back wounds, scheduling debridement and continuation with wound VAC. Plastic, Dr. De La Rosa reviewed patient's case on January 24 and felt she was not a good candidate for skin grafting as a wounds are not ready. He is also recommending a diverting colostomy which the patient is refusing. Complex case as patient is declining some recommended treatments. -pt. bleeding from left hip yesterday 01/31, required surgicel and several silver nitrate sticks used for cauterizing. Wound vac reapplied. She bled again last night, clots noted. -continue wound vac, no active bleeding Acute hypoxic and hypercarbic respiratory failure- persistent - s/p Trach in OR 12/28/17. -Tolerating T-piece -CXR results noted, inc. right lung opacity Diabetes mellitus type II, initially uncontrolled, insulin-dependent, no active complications Severe hyperglycemia. Improved, now becoming hypoglycemic as she again removed NGT> - Med scale SSI. - Ongoing adjustments with basal insulin following episode of sepsis, requirements now declining -removed NGT. Hold any insulin, pt. refusing accuchecks. Acute protein calorie malnutrition- severe Has refused peg tube placement - Follow prealbumin weekly - Dignishield placed to protect wounds from soilage. - Follow prealbumin weekly. - Pulled out NGT, refusing placement of dobhoff. -changed to D5 1/2 NS at 84/hr -refusing placement of PIV Acute kidney injury resolved - Tristan required for hourly urine output and to protect perineal region. - May ultimately require colostomy to protect this region however patient has declined. -Per previous provider cannot think of a solution to the problem of continuous wound soilage. Refused colostomy Left upper extremity DVT Anemia. HH now trending down - DVT left internal jugular, subclavian, axillary and distal arm veins. - Cannot anticoagulate secondary to blood loss anemia requiring blood transfusion, frequent surgeries. - Arterial inflow into the left arm and hand is good. -HH dropped due to bleeding from left buttock wound, HH 08/05.8. Ordered 2 units PRBC, only 1 transfused. PIV lost, pt. refused placement -Hold Lovenox -refused post transfusion HH, no active bleeding noted Pepcid for GI ulcer prophylaxis SCDs for DVT prophylaxis, continue to hold Lovenox due to bleeding. Appreciate palliative care input, pt. now DNR. Overall. pt has poor prognosis, she will require more surgeries in the future, continues to decline. She is refusing care. D/W pt and at length, RN present for both conversations. Will meet with tomorrow at 6pm. Pt. wants to go home, not sure how realistic this is as she would need around the clock hospice care. Did explained this pt. She agrees to PIV, vascular access team to come and place. She agrees to hydration and IV Morphine to control pain. Code Status: DNR Discussed Condition With: RN, pt, pt's [place]. Discharge Planning: Pt. hospice appropriate. Wants to go home but would need hospice care.
[2018-02-03] MEDS: oxyCODONE/Acetaminophen 10/325 Tablet PO PRN (23:17)
[2018-02-04] MEDS: Oral Hygiene Kit OROPHARYNG SCH ×4 (00:05→19:14)
[2018-02-04] MEDS: Dextrose 5%/NaCl 0.45% Inj 1,000 ML IV.CONT SCH ×2 (02:11→18:13)
[2018-02-04] MEDS: Morphine Sulfate Inj 2 MG/ML Vial IM PRN ×2 (03:11→23:53)
[2018-02-04] MEDS: Piperacil/Tazo 4.5 GM Premix 4.5 GM/100 ML BAG IV.SIG SCH (05:09)
[2018-02-04] MEDS: oxyCODONE/Acetaminophen 10/325 Tablet PO PRN (05:13)
[2018-02-04] MEDS: Azithromycin Inj 500 MG in Sodium Chlor 0.9% Inj 250 ML IV.SIG SCH (08:42)
[2018-02-04] MEDS: Chlorhexidine 0.12% Oral Kit 15 ML UDC OROPHARYNG SCH ×2 (08:43→23:34)
[2018-02-04] MEDS: hydrALAZINE 50 MG Tablet NG/OG SCH ×3 (08:44→19:14)
[2018-02-04] MEDS: clonazePAM 0.5 MG Tablet NG/OG SCH ×2 (08:44→23:34)
[2018-02-04] MEDS: Lactic Acid (Ammonium Lactate) 12% Lotion 225 GM Bottle TOPICAL SCH ×2 (08:45→23:35)
[2018-02-04] MEDS: Metoprolol Tartrate 50 MG Tablet NG/OG SCH ×2 (08:45→23:34)
[2018-02-04] MEDS: Lansoprazole ODT 15 MG Tablet NG/OG SCH (08:45)
[2018-02-04] MEDS: Senna/Docusate Sodium 8.6/50 MG Tablet NG/OG SCH ×2 (08:45→23:34)
[2018-02-04] MEDS: Collagenase Oint 30 GM Tube TOPICAL SCH (08:45)
--- NOTE | 2018-02-04 11:10 | P.PN ---
Subjective Interval history: Follow up for sepsis, necrotizing fascitis: Pt. seen and examined, awake, RN at [facility]. Pt. has been writing on paper. Awake, oriented x 2. Asking if she is going home, is coming at 6pm. Pain controlled. Has slept overnight. Has IVF infusing. Continues to decline NGT. Wants something to drink. Physical Exam Vital signs: Vital Signs 02/03/18 12:00 02/03/18 15:51 02/03/18 15:53 Temperature 97.7 F Pulse Rate 104 H 104 H Respiratory Rate 20 20 Blood Pressure 161/74 H Pulse Oximetry 100 95 02/03/18 16:00 02/03/18 18:34 02/03/18 18:36 Temperature 97.8 F Pulse Rate 91 H Respiratory Rate 20 20 18 Blood Pressure 159/77 H Pulse Oximetry 100 02/03/18 19:41 02/03/18 20:00 02/04/18 00:00 Temperature 98.2 F 97.1 F L Pulse Rate 95 H 76 76 Respiratory Rate 16 16 16 Blood Pressure 164/74 H 145/69 H Pulse Oximetry 100 100 100 02/04/18 01:00 02/04/18 04:00 02/04/18 04:32 Temperature 97.9 F Pulse Rate 106 H 74 Respiratory Rate 16 17 18 Blood Pressure 141/60 H Pulse Oximetry 98 02/04/18 08:00 02/04/18 10:03 Temperature 98.4 F Pulse Rate 93 H 92 H Respiratory Rate 15 16 Blood Pressure 133/64 Pulse Oximetry 100 100 Intake & Output 02/03/18 02/04/18 02/04/18 18:59 06:59 18:59 Intake Total 200 / 200 2300 / 2300 200 / 200 Output Total 750 / 750 450 / 450 Balance -550 / -550 1850 / 1850 200 / 200 Weight 70.6 kg Intake: IV 200 / 200 2300 / 2300 200 / 200 D5W/1/2 NS Inj 1,000 ML @ 84 2000 / 2000 mls/hr IV.CONT .[id number] [facility] Rx# :[id number] Zosyn 4.5 GM Premix 4.5 gm In 100 / 100 200 / 200 100 / 100 100 ml @ 200 mls/hr IV.SIG Q6H [facility] Rx#:[id number] Flagyl 500 MG Inj 100 ML @ 100 100 / 100 100 / 100 100 / 100 mls/hr IV.SIG Q8H [facility] Rx#: [id number] Oral 0 / 0 Output: Urine 450 / 450 Urine Amount (Catheter) 600 / 600 Indwelling Urethral Catheter 600 / 600 Wound Vac Amount 150 / 150 back and L buttock 150 / 150 Other: Mode Setting Posterior Sacrum Continuous Continuous back and L buttock Continuous Continuous Date of Last Bowel Movement 02/03/18 Narrative: General: Cachectic middle-aged woman, on T-piece via tracheostomy. Chronically ill appearing. Lungs: Supplemental oxygen through tracheostomy. Mostly clear, occ. ronchi. Heart: RRR. No M/R/G Abdomen: Soft, no guarding, nondistended, nontender, bowel sounds active Back: Wound vac in place. : Flexiseal in place. Musculoskeletal: Warm, well perfused, status post below-knee amputation right side, well-healed. Left foot with dressing in place. Left pedal pulse 2+ Neurological: Pt. awakes to voice, oriented x 2-3. Writing on paper and also speaks softly around trach. Following commands. No focal deficits. - Urinary Catheter Management Indwelling Urethral Catheter Cath placed during this visit: yes Urethral indwelling: Yes Reason for continuing: Severe pressure ulcer/wound Insertion date: 01/13/18 Insertion time: 01:00 1 Cath placed during this visit: yes, but has since been removed by the nurse Urethral indwelling: Yes Reason for continuing: Severe pressure ulcer/wound Insertion date: 12/15/17 Removal date: 01/13/18 Removal time: 01:00 Results - Labs CBC & Chem 7: 02/02/18 16:57 02/02/18 16:57 Laboratory Results - last 24 hr 02/01/18 02/03/18 02/03/18 09:22 12:47 16:57 POC Glucose 202 H 246 H MTS Gel Crossmatch See Detail 02/03/18 02/04/18 21:11 10:30 POC Glucose 243 H 198 H MTS Gel Crossmatch Microbiology 02/01/18 08:05 Blood - Peripheral Aerobic Blood Culture - Preliminary No growth in 3 days 02/01/18 08:05 Blood - Peripheral Anaerobic Blood Culture - Preliminary No growth in 3 days 02/01/18 07:51 Blood - Peripheral Aerobic Blood Culture - Preliminary No growth in 3 days 02/01/18 07:51 Blood - Peripheral Anaerobic Blood Culture - Preliminary No growth in 3 days - Procedures lumbar wd debridement with wd vac Assessment and Plan - Assessment (1) Fasciitis Code(s): M72.9 - Fibroblastic disorder, unspecified Status: Acute - Plan 52 year old female was initially critically ill and in septic shock with necrotizing fasciitis emanating from a deep chronic sacral decubitus ulcer. She has required multiple OR trips for I&D and VAC changes. Family request continued aggressive care. She had a recurrent bout of severe sepsis on 01/14 but after 2 debridements, she has improved. Now on T-piece, hemodynamically stable, however due to the declining NG tube and colostomy, it may be difficult to manage her active wound healing. Initially with encephalopathic, now has resolved. Was weaned off Levophe. Myocardial dysfunction due to sepsis. Resolved Overnight, tachycardic and hypotensive overnight, WBC, 18, Temp 100.1 Pt. likely going septic again. Recent CAUTI, PSAE PNA, PSAE -BC done, continue to follow -Started on Zithromax and Zosyn -ID following -CXR -inc. right lung opacity. Likely PNA -back on IVF and abx restarted. -has not had fever. No lab work has been done, pt. refusing. Necrotizing soft tissue infection - General surgery service following back wounds, scheduling debridement and continuation with wound VAC. Plastic, Dr. De La Rosa reviewed patient's case on January 24 and felt she was not a good candidate for skin grafting as a wounds are not ready. He is also recommending a diverting colostomy which the patient is refusing. Complex case as patient is declining some recommended treatments. -pt. bleeding from left hip yesterday 01/31, required surgicel and several silver nitrate sticks used for cauterizing. Wound vac reapplied. She bled again last night, clots noted. -continue wound vac, no active bleeding Acute hypoxic and hypercarbic respiratory failure- persistent - s/p Trach in OR 12/28/17. -Tolerating T-piece -CXR results noted, inc. right lung opacity Diabetes mellitus type II, initially uncontrolled, insulin-dependent, no active complications Severe hyperglycemia. Improved, now becoming hypoglycemic as she again removed NGT> - Med scale SSI. - Ongoing adjustments with basal insulin following episode of sepsis, requirements now declining -removed NGT. Hold any insulin, pt. refusing accuchecks. Acute protein calorie malnutrition- severe Has refused peg tube placement - Follow prealbumin weekly - Dignishield placed to protect wounds from soilage. - Follow prealbumin weekly. - Pulled out NGT, refusing placement of dobhoff. -continue D5 1/2 NS at 84/hr -accepted placement PIV Acute kidney injury resolved - Tristan required for hourly urine output and to protect perineal region. - May ultimately require colostomy to protect this region however patient has declined. -Per previous provider cannot think of a solution to the problem of continuous wound soilage. Refused colostomy Left upper extremity DVT Anemia. HH now trending down - DVT left internal jugular, subclavian, axillary and distal arm veins. - Cannot anticoagulate secondary to blood loss anemia requiring blood transfusion, frequent surgeries. - Arterial inflow into the left arm and hand is good. -HH dropped due to bleeding from left buttock wound, HH 08/05.8. Ordered 2 units PRBC, only 1 transfused. PIV lost, pt. refused placement -Hold Lovenox -HH done 02/02, Hgb 7.2/. No active bleeding, will continue to monitor Continue with pain management and symptom control Pepcid for GI ulcer prophylaxis SCDs for DVT prophylaxis, continue to hold Lovenox due to bleeding. Appreciate palliative care input, pt. now DNR. Overall. pt has poor prognosis, she will require more surgeries in the future, continues to decline. She is refusing care. coming today around 6pm, will follow up on conversation we have had over weekend. D/W Mindy, if agreeable we may be able to arrange a few days of hospice care at home. A better option would be for pt. to go to care center but she adamantly refuses and would have to agree. Code Status: DNR Discussed Condition With: RN, pt, Mindy Griffin APRN Discharge Planning: Pt. hospice appropriate. Wants to go home but would need hospice care.
[2018-02-04] MEDS: Insulin NovoLIN Regular Correctional Sugar Inj SQ SCH ×4 (12:08→23:53)
[2018-02-04] MEDS: Insulin Detemir Inj 1,000 UNIT/10 ML Vial SQ SCH ×2 (12:09→23:53)
[2018-02-04] MEDS: Morphine Inj 4 MG/ML Vial IV.PUSH PRN (14:45)
--- NOTE | 2018-02-04 15:18 | P.PNID ---
Subjective Remarks: ID follow-up. Patient is awake and alert. She is okay. Afebrile. Wound VAC being changed on wound on the back and left hip. Sputum and urine culture have pseudomonas 01/14/2018. This is a 52-year-old white female who was brought to the emergency department after she fell at home. The patient was noted to have profound weakness. She was evaluated in the emergency department and at that time had normal temperature and white blood cell count was also normal. She underwent CT scan of the abdomen and pelvis that showed extensive subcutaneous and soft tissue gas bilaterally with the left greater than right, most severe in the left gluteal region and extending into the proximal posterior thigh soft tissue and air-fluid dissecting through the gluteal musculature. Post multiple debridement and Vac changes. Antibiotics: Azithromycin Piperacillin/tazobactam Flagyl Allergies/Adverse Reactions: Allergies No Known Allergies Allergy (Verified 12/15/17 07:54) Objective Vital Signs 02/03/18 15:51 02/03/18 15:53 02/03/18 16:00 Temperature 97.8 F Pulse Rate 104 H 91 H Respiratory Rate 20 20 Blood Pressure 159/77 H Pulse Oximetry 95 100 02/03/18 18:34 02/03/18 18:36 02/03/18 19:41 Temperature Pulse Rate 95 H Respiratory Rate 20 18 16 Blood Pressure Pulse Oximetry 100 02/03/18 20:00 02/04/18 00:00 02/04/18 01:00 Temperature 98.2 F 97.1 F L Pulse Rate 76 76 Respiratory Rate 16 16 16 Blood Pressure 164/74 H 145/69 H Pulse Oximetry 100 100 02/04/18 04:00 02/04/18 04:32 02/04/18 08:00 Temperature 97.9 F 98.4 F Pulse Rate 106 H 74 89 Respiratory Rate 17 18 15 Blood Pressure 141/60 H 133/64 Pulse Oximetry 98 100 02/04/18 10:03 02/04/18 12:00 Temperature 98.8 F Pulse Rate 92 H 89 Respiratory Rate 16 17 Blood Pressure 118/75 Pulse Oximetry 100 100 Intake & Output 02/03/18 02/04/18 02/04/18 18:59 06:59 18:59 Intake Total 200 / 200 2300 / 2300 200 / 200 Output Total 750 / 750 450 / 450 Balance -550 / -550 1850 / 1850 200 / 200 Weight 70.6 kg Intake: IV 200 / 200 2300 / 2300 200 / 200 D5W/1/2 NS Inj 1,000 ML @ 84 2000 / 2000 mls/hr IV.CONT .[id number] Rx# :[id number] Zosyn 4.5 GM Premix 4.5 gm In 100 / 100 200 / 200 100 / 100 100 ml @ 200 mls/hr IV.SIG Q6H [facility] Rx#:[id number] Flagyl 500 MG Inj 100 ML @ 100 100 / 100 100 / 100 100 / 100 mls/hr IV.SIG Q8H [facility] Rx#: [id number] Oral 0 / 0 Output: Urine 450 / 450 Urine Amount (Catheter) 600 / 600 Indwelling Urethral Catheter 600 / 600 Wound Vac Amount 150 / 150 back and L buttock 150 / 150 Other: Mode Setting Posterior Sacrum Continuous Continuous Continuous back and L buttock Continuous Continuous Continuous Date of Last Bowel Movement 02/03/18 02/03/18 02/01/18 08:05 Blood - Peripheral Aerobic Blood Culture - Preliminary No growth in 3 days 02/01/18 08:05 Blood - Peripheral Anaerobic Blood Culture - Preliminary No growth in 3 days 02/01/18 07:51 Blood - Peripheral Aerobic Blood Culture - Preliminary No growth in 3 days 02/01/18 07:51 Blood - Peripheral Anaerobic Blood Culture - Preliminary No growth in 3 days Lab - Hematology Results 02/02/18 16:57 WBC 9.7 RBC 2.15 L Hgb 7.2 L Hct 21.0 L MCV 97.8 MCH 33.5 MCHC 34.2 RDW 18.4 H Plt Count 167 MPV 10.3 Lab - Chemistry Results 02/02/18 02/02/18 02/02/18 16:57 17:34 20:28 Sodium 141 Potassium 3.9 Chloride 108 H Carbon Dioxide 25.1 Anion Gap 8 BUN 23 H Creatinine 0.56 Estimated GFR Greater than 89 POC Glucose 186 H 140 H Random Glucose 157 H D Calcium 8.5 02/03/18 02/03/18 02/03/18 10:05 12:47 16:57 Sodium Potassium Chloride Carbon Dioxide Anion Gap BUN Creatinine Estimated GFR POC Glucose 187 H 202 H 246 H Random Glucose Calcium 02/03/18 02/04/18 02/04/18 21:11 10:30 14:49 Sodium Potassium Chloride Carbon Dioxide Anion Gap BUN Creatinine Estimated GFR POC Glucose 243 H 198 H 259 H Random Glucose Calcium Imaging: ITS Impressions Femur X-Ray 12/15/17 07:05 CONCLUSION: No fracture is identified. There is extensive soft tissue air in the right gluteal region and extending into the proximal and mid posterior thigh. The soft tissue air suggests an open wound. Pelvis X-Ray 12/15/17 07:05 CONCLUSION: No fracture is identified. However, there is extensive soft tissue air in the left gluteal region and left proximal thigh. Pelvis CT 12/15/17 07:52 CONCLUSION: 1. No fracture is identified. 2. Extensive subcutaneous and soft tissue gas bilaterally, left greater than right. It is most severe in the left gluteal region and extends into the proximal posterior thigh. The soft tissue air dissects through the gluteal musculature. There is adjacent subcutaneous edema. Foot X-Ray 12/18/17 00:00 CONCLUSION: Remote small avulsion fracture at the fifth toe. No acute bony abnormality. Venous Doppler Study 12/22/17 00:00 CONCLUSION: Extensive deep vein thrombosis of the left upper extremity. Abdomen X-Ray 01/27/18 17:30 CONCLUSION: The feeding tube is looped in the stomach and the distal tip is in the gastric fundus. Chest X-Ray 02/01/18 09:23 CONCLUSION: 1. Increased airspace opacity in the right lung compared to the prior study with no focal consolidation. 2. Interval removal of Dobbhoff feeding tube. Physical Exam: PHYSICAL EXAMINATION: GENERAL: No distress. HEENT: Extraocular movements grossly intact, pupils reactive to light. Pale sclera. No icterus. NECK: Supple. No adenopathy or swelling. LUNGS: Decreased breath sounds. Good air movement. HEART: irregular S1 and S2. 1-2/6 systolic murmur at the left sternal border. ABDOMEN: Bowel sounds present, soft. BACK: Surgical wound post debridement across the lower back, buttock and thigh. Wound is very clean and has had bleeding upon removal of the vacuum sponge. The vacuum dressing being applied. No erythema. EXTREMITIES: No clubbing, no cyanosis or edema. abrasion with dry necrotic changes at left dorsal toes 2-4. SKIN: No diffuse rash. Scattered ecchymotic lesions. NEUROLOGIC: Unable to assess. PSYCHIATRIC: Calm. Assessment and Plan - Plan IMPRESSION: 1. Necrotizing fasciitis of the back, buttock and thigh. Talia albicans and Talia tropicalis. 2. Septic shock. Responded to broad-spectrum antibiotics. 3. Acute respiratory failure. 4. Chronic kidney disease. 5. Leukocytosis. Improved. 6. UTI - pseudomonas. Treated. 7. New episode of sepsis. Improved. 8. PNA - pseudomonas. Probable aspiration. Resolved. Looks stable. RECOMMENDATIONS: 1. Stop azithromycin 2. Stop Flagyl. 3. Stop Zosyn. 4. Monitor the clinical status. 5. Monitor without antibiotics. Vacuum dressing changes wound care.
--- NOTE | 2018-02-04 16:55 | P.PNWCN ---
Wound Care Nurse Consult Description: Patient seen today for Veraflow VAC dressing change to sacral and L buttock areas. Communicated with: VISHAL Westbrook, Doctor Duncan and TRISTON Andrade Recommendation: Wound care will change wound VAC Veraflow cleanse choice on Sunday or Wound Vac - Wound Vac Left buttock and sacral wounds Pressure Setting (mmHg): 125 (low) Mode Setting: Continuous (With a break in suctioning every 3.5 hours for 10 minutes with 85 ml normal saline soaks) Foam type: Other (Veraflow cleanse choice) Incision - Patient Status Premedicated for Pain Prior to Dressing Change: Yes - Incision Left Buttocks Incision Assessment: Ongoing Incision Type: Incision Incision Description: Open Incision Bed Appearance: Red (80% pale red muscle tissue and ~20% facia) Surrounding Tissue Appearance: [place], Shiny Surrounding Tissue Temperature: Cool Drainage Description: Serosanguinous Drainage Amount: Scant Drainage Odor: No Odor Incision Dressing Status: Changed Incision Cleaning Solution: Saline Incision Packing Type: Woundvac Sponge (Vera flow cleanse choice frey foam with holes and solid frey foam 3 pieces all together) Primary Dressing: Negative Pressure Wound Dressing Cover Dressing: Other (VAC veraflow VAC drape) Incision Dressing Change Date: 02/04/18 Sacrum Incision Assessment: Ongoing Incision Type: Incision Incision Description: Open Incision Bed Appearance: Red (~75 % red granulation tissue ~ 10% facia, and ~15 % slough), White, Yellow Surrounding Tissue Appearance: [place], Shiny Surrounding Tissue Temperature: Cool Drainage Description: Serosanguinous Drainage Amount: Minimal Drainage Odor: No Odor Incision Dressing Status: Changed Incision Cleaning Solution: Saline Incision Packing Type: Woundvac Sponge (four pieces of frey foam with holes, five pieces of solid frey foam, a total of 9 pieces of foam) Primary Dressing: Negative Pressure Wound Dressing Cover Dressing: Other (Veraflow VAC drape) Incision Dressing Change Date: 02/04/18 - Additional Information Patient seen on for wound VAC Veraflow Cleanse choice dressing change. Removed Moist to dry dressing on L buttock wound and Veraflow VAc dressing in place to sacral area to reveal open wounds over sacrum and L buttock.Wound VAC dressing was changed with the assistance of Dariana RODGERS , Sarahi RODGERS and typewriter mechanic. Sacral Wound bed presents with ~75 % red granulation tissue ~ 10% facia, ~15% slough and minimal sanguinous drainage. Wound on L buttock presents with 80% pale red muscle tissue and ~20% facia .Wound to L buttock presents with scant sero-sanguinous drainage today and suture is noted in middle of wound. Periwound of both wounds was noted with scattered partial thickness skin loss that is improving compared to last dressing change.Incision line between wound on sacrum and wound on L buttock is dry and intact Applied Jaime seal to periwound lining wound edges of sacral and L buttock wounds. 2 pieces of Frey foam with holes were applied to wound bed of L buttock wound. Then applied 2 pieces of solid frey foam pieces over frey foam with holes.Applied 4 pieces of frey foam with holes to wound bed of sacral wound and then applied 9 pieces of solid frey foam over foam with holes. Periwound partial thickness skin loss was covered with maxorb II before cleanse choice foam was secured in place with VAC drape. Bridged frey solid foam over VAC drape to L anterior thigh. Sensi trac pad was applied to L thigh bridge area. Entire wound VAC dressing was sealed with VAC drape. Started VAC machine with VAC machine settings of 125 mm/Hg low continuous suction 3.5 hours with a break in suction for 10 minute normal saline soaks. Instilled 85 ml of normal saline with new settings after a 2 minute 30 second seal check. Wound soaked for 10 minutes before suctioning began again.Patient tolerated procedure fairly with complaints of pain with cleansing of wound.
--- NOTE | 2018-02-04 22:53 | XR ---
EXAM DATE: 02/04/2018 10:44 PM EST AGE/SEX: 52 years / Female INDICATIONS: Dobbhoff placement. CLINICAL DATA: This is the patient's initial encounter. Patient reports that signs and symptoms have been present for 1 day and indicates a pain score of 3/10. MEDICAL/SURGICAL HISTORY: . . Hypertension. Diabetes mellitus type II. Hepatitis C. GERD, sepsi s. . . section COMPARISON: [facility] [place] [facility] [place], 01/27/2018. . FINDINGS: Examination of the abdomen demonstrates a normal bowel gas pattern. No free air is identified. No o rganomegaly is evident. Osseous structures are intact. The left side of the abdomen was cut off the exam. The mid and lower pelvis were not included on the images well. There is a Dobbhoff type feeding tube in place with the tip projected over the proximal to mid stomach. Surgical clips are again note d projected over the right lower quadrant. CONCLUSION: 1. Dobbhoff type feeding tube with tip projected over the proximal to mid stomach. 2. Unremarkable bowel gas pattern. Electronically signed by: Kip Landrum MD Board Certified Radiologist 02/04/2018 10:51 PM TRUONG Cuevas
[2018-02-04] MEDS: Acetaminophen 325 MG Tablet NG/OG PRN (23:38)
[2018-02-05] MEDS: Morphine Inj 4 MG/ML Vial IV.PUSH PRN ×3 (03:16→22:29)
[2018-02-05] MEDS: Oral Hygiene Kit OROPHARYNG SCH ×3 (05:21→17:41)
[2018-02-05] MEDS: Dextrose 5%/NaCl 0.45% Inj 1,000 ML IV.CONT SCH ×2 (05:21→19:59)
[2018-02-05] MEDS: oxyCODONE/Acetaminophen 10/325 Tablet PO PRN ×2 (05:27→21:47)
[2018-02-05] MEDS: Senna/Docusate Sodium 8.6/50 MG Tablet NG/OG SCH ×2 (11:01→21:47)
[2018-02-05] MEDS: Lansoprazole ODT 15 MG Tablet NG/OG SCH (11:01)
[2018-02-05] MEDS: Metoprolol Tartrate 50 MG Tablet NG/OG SCH ×2 (11:02→21:47)
[2018-02-05] MEDS: hydrALAZINE 50 MG Tablet NG/OG SCH ×3 (11:02→17:41)
[2018-02-05] MEDS: Collagenase Oint 30 GM Tube TOPICAL SCH (11:06)
[2018-02-05] MEDS: Lactic Acid (Ammonium Lactate) 12% Lotion 225 GM Bottle TOPICAL SCH ×2 (11:06→21:48)
[2018-02-05] MEDS: Insulin Detemir Inj 1,000 UNIT/10 ML Vial SQ SCH ×2 (11:06→22:25)
[2018-02-05] MEDS: Chlorhexidine 0.12% Oral Kit 15 ML UDC OROPHARYNG SCH ×2 (11:06→21:48)
[2018-02-05] MEDS: Insulin NovoLIN Regular Correctional Sugar Inj SQ SCH ×3 (11:07→22:25)
[2018-02-05] MEDS: clonazePAM 0.5 MG Tablet NG/OG SCH ×2 (11:11→21:48)
[2018-02-05] MEDS: Morphine Sulfate Inj 2 MG/ML Vial IM PRN (12:01)
--- NOTE | 2018-02-05 16:59 | P.PNPAL ---
Reason for Visit Reason for visit: a. To assist with evaluation and management of symptoms including: dyspnea, debility, pain b. To assist medical decision maker(s) with: better understanding of current medical conditions; weighing benefits/burdens of medical treatment options; making medical treatment decisions. Subjective Subjective/Interval History: Patient seen to follow up on comfort, goals of treatment. Medical attending had planned for meeting 6 p.m. yesterday with to further discuss patient wishes and possible transition to comfort, attending reported to me that he did not show up for this meeting. Last week patient with some decline bleeding from her wounds, anemia requiring transfusion. She began refusing treatments and interventions and requested DNR status. She began requesting to go home with hospice services saying that she was done and "ready ". She remains in the long-term vent unit. Dobbhoff was replaced last night which she had previously been refusing to allow replacement of. KUB confirms tip in stomach. No new labs. She examined in room no visitors present. She is initially sleeping though arouses easily. Ask her about planned meeting with her last night she tells me that he did come to the hospital, though he came very late because he had car trouble. She again tells me that she is I reviewed with her that there are multiple barriers to her going home and that there were very few specific conditions under which she might be able to safely go home. Explore with her Dobbhoff replacement, she indicates that she agreed to put it back. Explore with her planned meeting with her to further talk about hospice and how best to get her home. She tells me that she does not want hospice. She tells me that she is not ready to . She asks what her options - review quite ill, too ill for rehabilitation, at some point if her wounds and nutritional status stabilizes they might be able to do discharge to long-term nursing facility. She tells me she will not go to a detention. Review that her only other alternative would be to seek comfort measures with hospice. I did review hospice philosophy, services as well which could provide care and symptom relief at end-of-life. She refuses this. She tells me she just wants to go home that she is tired of being in the hospital. Provided support however reviewed that because she has been ill for so long she is quite debilitated and her overall prognosis is poor, and her options are very limited. She becomes tearful and tells me she is tired of being in the hospital. She tells me the pain medicine is not working as well, explore we can titrate this a little bit I will discuss with attending. Following exam call to , voicemail left. d/w nurse, d/w med attending PA. Advance Directives Living Will: Never completed Health Care Surrogate: Never completed Health Care Surrogate Name and Number: HCP Tyrone Middleton Documented care wishes:: No known documented care wishes have been completed Objective Vital Signs: Vital Signs 02/04/18 20:00 02/04/18 21:18 02/05/18 00:00 Temperature 100.1 F H 99.1 F Pulse Rate 76 105 H 90 Respiratory Rate 18 20 20 Blood Pressure 152/83 H 138/65 Pulse Oximetry 100 99 108 H 02/05/18 03:32 02/05/18 04:00 02/05/18 08:00 Temperature 98.7 F 98.3 F Pulse Rate 103 H 87 93 H Respiratory Rate 17 18 16 Blood Pressure 130/66 133/61 Pulse Oximetry 100 98 02/05/18 09:15 02/05/18 12:00 02/05/18 13:01 Temperature 98.9 F Pulse Rate 96 H 95 H Respiratory Rate 14 14 20 Blood Pressure 135/71 Pulse Oximetry 99 100 Intake & Output 02/04/18 02/05/18 02/05/18 18:59 06:59 18:59 Intake Total 1200 / 1200 1000 / 1000 Output Total 400 / 400 Balance 1200 / 1200 600 / 600 Weight 70.7 kg Intake: IV 1200 / 1200 1000 / 1000 D5W/1/2 NS Inj 1,000 ML @ 84 1000 / 1000 1000 / 1000 mls/hr IV.CONT .[id number] RICARDO Rx# :[id number] Zosyn 4.5 GM Premix 4.5 gm In 100 / 100 100 ml @ 200 mls/hr IV.SIG Q6H RICARDO Rx#:[id number] Flagyl 500 MG Inj 100 ML @ 100 100 / 100 mls/hr IV.SIG Q8H RICARDO Rx#: [id number] Output: Urine 400 / 400 Other: Mode Setting Left buttock and sacral wounds Continuous Continuous Posterior Sacrum Continuous Continuous back and L buttock Continuous Continuous Date of Last Bowel Movement 02/03/18 Physical Exam: CONSTITUTIONAL/GENERAL: This is a chronically ill appearing female who looks older than her stated age. TUBES/LINES/DRAINS: Tracheostomy, wound VAC, heel boots SKIN: Very pale. Scattered ecchymosis to upper extremities, torso, neck. Wound VAC in place low back with blood-tinged drainage in VAC canister. Skin warm/dry, flaky/scaling in places EYES: Pupils equal and round, reactive. No scleral icterus. No injection or drainage. ENT: Nose without bleeding or purulent drainage. Moist oral mucosa. CARDIOVASCULAR: Regular rate and rhythm. 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 Respiration even/unlabored. Lungs w scattered rhonchi. +beige drainage at trach site. GASTROINTESTINAL: Abdomen soft, non-tender, mildly distended. No guarding. Bowel sounds active . GENITOURINARY: Without palpable bladder distension. MUSCULOSKELETAL: Status post right BKA. Left foot cool to touch; dressing to foot. Post tib pulse palpable NEUROLOGICAL: Awake, nods to yes/no questions. Answers questions appropriately. Mouths words, able to understand most of what she is trying to mouth. writes as well. Follows simple commands. moves 4 extremities. PSYCHIATRIC: Calm, tearful at times. Diagnostic Tests Laboratory: Laboratory Results - last 72 hr 02/01/18 02/02/18 02/02/18 09:22 16:57 16:57 WBC 9.7 RBC 2.15 L Hgb 7.2 L Hct 21.0 L MCV 97.8 MCH 33.5 MCHC 34.2 RDW 18.4 H Plt Count 167 MPV 10.3 Sodium 141 Potassium 3.9 Chloride 108 H Carbon Dioxide 25.1 Anion Gap 8 BUN 23 H Creatinine 0.56 Estimated GFR Greater than 89 POC Glucose Random Glucose 157 H D Calcium 8.5 MTS Gel Crossmatch See Detail 02/02/18 02/02/18 02/03/18 17:34 20:28 10:05 WBC RBC Hgb Hct MCV MCH MCHC RDW Plt Count MPV Sodium Potassium Chloride Carbon Dioxide Anion Gap BUN Creatinine Estimated GFR POC Glucose 186 H 140 H 187 H Random Glucose Calcium MTS Gel Crossmatch 02/03/18 02/03/18 02/03/18 12:47 16:57 21:11 WBC RBC Hgb Hct MCV MCH MCHC RDW Plt Count MPV Sodium Potassium Chloride Carbon Dioxide Anion Gap BUN Creatinine Estimated GFR POC Glucose 202 H 246 H 243 H Random Glucose Calcium MTS Gel Crossmatch 02/04/18 02/04/18 02/04/18 10:30 14:49 18:12 WBC RBC Hgb Hct MCV MCH MCHC RDW Plt Count MPV Sodium Potassium Chloride Carbon Dioxide Anion Gap BUN Creatinine Estimated GFR POC Glucose 198 H 259 H 179 H Random Glucose Calcium MTS Gel Crossmatch 02/04/18 02/05/18 02/05/18 23:45 08:03 13:19 WBC RBC Hgb Hct MCV MCH MCHC RDW Plt Count MPV Sodium Potassium Chloride Carbon Dioxide Anion Gap BUN Creatinine Estimated GFR POC Glucose 219 H 78 148 H Random Glucose Calcium MTS Gel Crossmatch Result Diagrams: 02/02/18 16:57 02/02/18 16:57 Microbiology: Microbiology 12/24/17 12:20 Acid Fast Bacilli Smear - Final Tissue - Buttock No acid fast bacilli seen Mycobacterial Culture - Final No growth in 6 weeks 02/01/18 08:05 Aerobic Blood Culture - Preliminary Blood - Peripheral No growth in 4 days Anaerobic Blood Culture - Preliminary No growth in 4 days 02/01/18 07:51 Aerobic Blood Culture - Preliminary Blood - Peripheral No growth in 4 days Anaerobic Blood Culture - Preliminary No growth in 4 days Imaging: Impressions Abdomen X-Ray 02/04/18 22:22 CONCLUSION: 1. Dobbhoff type feeding tube with tip projected over the proximal to mid stomach. 2. Unremarkable bowel gas pattern. Procedures: 12/15/2017: Endotracheal intubation 12/15/2017: Left subclavian central line placement 12/15/2017: NGT placement 12/15/2017: I&D with wound HEMOVAC placement 12/18/2017: I&D with wound VAC change 12/21/2017: I&D with wound VAC change 12/24/2017: I&D with wound VAC change 12/28/2017: perc trach, wound vac change to back, buttock, posterior thigh 12/31/2017: I&D with wound VAC change, removal of coccyx bone 01/04/2018: I&D with wound VAC change 01/08/2018: I&D with wound VAC change, partial closure Assessment and Plan - Disease Oriented Problem List (1) Septic shock with acute organ dysfunction due to anaerobic bacteria (2) Acute respiratory failure (3) Type 2 diabetes mellitus with hyperosmolar nonketotic hyperglycemia (4) Necrotizing fasciitis (5) MARIO (acute kidney injury) (6) Lactic acidosis (7) Hypernatremia Pertinent Non-Medical Issues: Psychosocial:Originally from [place]. Currently . Spiritual: No confucianist affiliation. Legal: Per [place] statutes, in the absence of written advanced directives health care proxy decision making will fall to the patient's , Tyrone. Patient is capacitated to make her own health care decisions. Ethical issues impacting care: No known ethical issues impacting care at this time. Important Contacts: Tyrone Middleton, : [phone] Sister Linette Lebron , Prognosis: Patient is critically ill and in septic shock with necrotizing fasciitis secondary to a chronic sacral decubitus. Upon arrival to the ED, the patient was hyperglycemic with a blood glucose of 610, severely dehydrated and in profound shock. She is intubated on mechanical ventilation requiring pressor support status post wide excision of the involved soft tissue. Patient will require further debridement in the future. She remains hemodynamically unstable and critically ill. Now declining, may not survive this hospitalization. Very poor overall prognosis for meaningful recovery. Code Status: No Code DNR Plan: * NO CODE. Risks, benefits and limitations of CPR were discussed at length with patient and later her to notify of patient election of NO CODE status, patient signed [place] DNR order, aware. * HEALTHCARE DECISION-MAKING: Patient is capacitated to make her own health care decisions. Per [place] statute, in the absence of written advanced directives healthcare proxy decision making falls to the patient's , Tyrone Middleton. He has accepted this role. * GOALS OF CARE: DNR, patient seems to be considering comfort measures,/hospice , wants to speak with her . She wants to go home, not sure this will be possible, she is not interested in hospice care center. Spouse unable to visit patient until 02/04/18 due to work schedule. Attempting to arrange family meeting 02/04/18 to further clarify goals of medical treatment. VM left for today. * Symptom management: = Pain: Multifactorial. Patient has a long history of chronic conditions. Possible contributing factors include severe peripheral arterial disease, recent BKA, peripheral neuropathy, sepsis, necrotizing fasciitis, invasive lines, immobility. Was previously on fentanyl patch 50 mcg q72hrs. Has PRN oxycodone and Morphine. She has multiple open areas on her trunk skin at this time I think it would be difficult to have consistent/reliable absorption of fentanyl patch. Now that NG tube back in place she is back on oral Percocet. Continue this. Increase morphine from 3 mg to 4 mg, discussed this with medical attending I entered the order. = Debility/profound physical deconditioning: Patient with uncontrolled diabetes with severe peripheral arterial disease and smoking. 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 Debility anticipated to worsen. has been back in ICU on vent, which further set back restorative efforts. now off vent, now in LTVU. = Dyspnea: trach to t-piece, denies shortness of breath. = Anxiety: Tearful, depressed with being in the hospital for so long. Last week she was requesting hospice and comfort however today she indicates that while she no longer wants to be in the hospital, that she does not want hospice or end-of-life services she wants to be well and not be in the hospital and not end up in a detention. She has been on clonazepam for some time at this time recommend increasing from every 12 hours to every 8 discussed with medical attending I entered this order. * Palliative care will continue to follow this patient throughout her hospitalization to establish trust, assist with symptom management and clarification of medical treatment goals. Attestation Attestation: To help prompt me to consider important information that might be impacting today's encounter and assessment, information from prior notes written by myself or my colleagues may have been "brought forward" into today's note. My signature on this note, however, is an attestation that I personally performed the exam, history, and/or decision-making noted today, and, unless otherwise indicated, the interactions with patient, family, and staff as well as the review of records all occurred today. I also attest that the listed assessment and stated plan reflect my best clinical judgment today based on the combination of historical information, prior notes, and today's exam/ interactions. When time spent is documented, it refers only to time spent today by the signer, or if indicated, combined time spent today by collaborating physician/nurse practitioner.
--- NOTE | 2018-02-05 18:35 | P.PNIM ---
Subjective Interval history: late entry, patient seen earlier this morning Follow up for sepsis, necrotizing fascitis: Patient seen and examined. Patient says she is okay. She does not voice any acute medical complaints or concerns. She has had NGT placed. She wants to go home with her . [facility] nursing staff, no adverse events noted overnight. Physical Exam Vital signs: Last Vital Signs Temp 98.6 F 02/05/18 16:00 Pulse 96 H 02/05/18 16:00 Resp 16 02/05/18 16:00 BP 158/84 H 02/05/18 16:00 Pulse Ox 114 H 02/05/18 16:00 Intake & Output 02/03/18 02/04/18 02/05/18 02/06/18 06:59 06:59 06:59 06:59 Intake Total 0 / 0 2500 / 2500 2200 / 2200 Output Total 1700 / 1700 1200 / 1200 400 / 400 Balance -1700 / -1700 1300 / 1300 1800 / 1800 Weight 70.6 kg 70.7 kg Narrative: General: Cachectic middle-aged woman, on T-piece via tracheostomy. Chronically ill appearing. Awake and alert. NGT in place. SKIN: Warm and dry. +Scattered ecchymosis/petechia. Lungs: Supplemental oxygen through tracheostomy. Mostly clear, occ. rhonchi. Heart: RRR. No M/R/G Abdomen: Soft, no guarding, nondistended, nontender, bowel sounds active Back: Wound vac in place. : Flexiseal in place. Musculoskeletal: Warm, well perfused, status post below-knee amputation right side, well-healed. Left foot with dressing in place. Left pedal pulse 2+ Neurological: Asleep but easily awakens to voice, oriented x 2-3. Following commands. Able to move all extremities spontaneously. No focal deficits. Psychiatric: Calm and cooperative. Urinary Catheter Management Indwelling Urethral Catheter: Cath placed during this visit: yes Urethral indwelling: Yes Insertion date: 01/13/18 Insertion time: 01:00 1: Cath placed during this visit: yes, but has since been removed by the nurse Urethral indwelling: Yes Insertion date: 12/15/17 Removal date: 01/13/18 Removal time: 01:00 Results Labs CBC & Chem 7: 02/02/18 16:57 02/02/18 16:57 Labs: Microbiology 12/24/17 12:20 Tissue - Buttock Acid Fast Bacilli Smear - Final No acid fast bacilli seen 12/24/17 12:20 Tissue - Buttock Mycobacterial Culture - Final No growth in 6 weeks 02/01/18 08:05 Blood - Peripheral Aerobic Blood Culture - Preliminary No growth in 4 days 02/01/18 08:05 Blood - Peripheral Anaerobic Blood Culture - Preliminary No growth in 4 days 02/01/18 07:51 Blood - Peripheral Aerobic Blood Culture - Preliminary No growth in 4 days 02/01/18 07:51 Blood - Peripheral Anaerobic Blood Culture - Preliminary No growth in 4 days Imaging Imaging: Impressions Abdomen X-Ray 02/04/18 22:22 CONCLUSION: 1. Dobbhoff type feeding tube with tip projected over the proximal to mid stomach. 2. Unremarkable bowel gas pattern. 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 She has required multiple OR trips for I&D and VAC changes. Family request continued aggressive care. She had a recurrent bout of severe sepsis on 01/14 but after 2 debridements, she has improved. Now on T-piece, hemodynamically stable, however due to the declining NG tube and colostomy, it may be difficult to manage her active wound healing. Initially with encephalopathic, now has resolved. Was weaned off Levophe. Myocardial dysfunction due to sepsis. Resolved Recurrent sepsis, resolving Recent CAUTI, PSAE PNA, PSAE -BC done, continue to follow -Started on Zithromax and Zosyn, now off all antibiotics per ID. -ID following, appreciate assistance -CXR -inc. right lung opacity. Likely PNA -back on IVF and abx restarted. -white count improved, 18 -> 9.7 Necrotizing soft tissue infection - General surgery service following back wounds, scheduling debridement and continuation with wound VAC. Plastic, Dr. De La Rosa reviewed patient's case on January 24 and felt she was not a good candidate for skin grafting as a wounds are not ready. He is also recommending a diverting colostomy which the patient is refusing. Complex case as patient is declining some recommended treatments. -pt. bleeding from left hip 01/31, required surgicel and several silver nitrate sticks used for cauterizing. Wound vac reapplied.. -continue wound vac, no active bleeding Acute hypoxic and hypercarbic respiratory failure- persistent - s/p Trach in OR 12/28/17. -Tolerating T-piece -02/01 CXR results noted, inc. right lung opacity. Per ID, monitoring off all antibiotics. Diabetes mellitus type II, initially uncontrolled, insulin-dependent, no active complications Severe hyperglycemia. Improved, now becoming hypoglycemic as she again removed NGT - scheduled Levemir resumed now that patient is back on TF - continue accucheks and ISS coverage Acute protein calorie malnutrition- severe Severe dysphagia Has refused peg tube placement - strict NPO - Follow prealbumin weekly - Dignishield placed to protect wounds from soilage. - Follow prealbumin weekly. - Pulled out NGT, initially refused replacement but has since acquiesced. TF resumed. Acute kidney injury resolved -Tristan required for hourly urine output and to protect perineal region. -May ultimately require colostomy to protect this region however patient has declined. -Per previous provider cannot think of a solution to the problem of continuous wound soilage. Refused colostomy Left upper extremity DVT Anemia. H&H now trending down - DVT left internal jugular, subclavian, axillary and distal arm veins. - Cannot anticoagulate secondary to blood loss anemia requiring blood transfusion, frequent surgeries. - Arterial inflow into the left arm and hand is good. -HH dropped due to bleeding from left buttock wound, HH 08/05.8. Ordered 2 units PRBC, only 1 transfused. PIV lost, pt. refused placement -Hold Lovenox -HH done 02/02, Hgb 7.2. No active bleeding, will continue to monitor. Repeat lab in am. Continue with pain management and symptom control Pepcid for GI ulcer prophylaxis SCDs for DVT prophylaxis, continue to hold Lovenox due to bleeding. Palliative care following, very much appreciate their expertise. Discussed with Mindy today. Patients did not show up for meeting with Tosin yesterday. He has not returned any of Mindy's phone calls. Patient does not want to go to Hospice care center. Unable to go home with Hospice as patients works many long hours. Patient refusing PEG tube placement. She continues to intermittently refuse care. Overall very poor prognosis. Progress Note: Quality VTE Deep Vein Thrombosis/Pulmonary Embolism Present on Admission: No
[2018-02-06] MEDS: Dextrose 5%/NaCl 0.45% Inj 1,000 ML IV.CONT SCH ×2 (02:31→15:07)
[2018-02-06] MEDS: Oral Hygiene Kit OROPHARYNG SCH ×4 (02:31→16:00)
[2018-02-06] MEDS: Morphine Inj 4 MG/ML Vial IV.PUSH PRN ×4 (04:00→23:14)
[2018-02-06] MEDS: clonazePAM 0.5 MG Tablet NG/OG SCH ×3 (05:23→23:20)
[2018-02-06] MEDS: oxyCODONE/Acetaminophen 10/325 Tablet PO PRN ×2 (05:24→10:00)
[2018-02-06 07:32] LABS: Baso % (Auto) 0.7 % (0.0-2.0); Eos # (Auto) 0.6 th/mm3 (0.0-0.4); Eos % (Auto) 9.1 % (0.0-4.0); Hematocrit 21.7 % (35.0-46.0); Hemoglobin 7.5 gm/dL (11.6-15.3); Lymph % (Auto) 31.3 % (9.0-44.0); Mean Corpuscular HGB Conc 34.6 % (32.0-36.0); Mean Corpuscular Hemoglobin 33.6 pg (27.0-34.0); Mean Corpuscular Volume 97.3 fL (80.0-100.0); Mean Platelet Volume 9.5 fL (7.0-11.0); Mono # (Auto) 0.5 th/mm3 (0.0-0.9); Mono % (Auto) 7.3 % (0.0-8.0); Neut # (Auto) 3.3 th/mm3 (1.8-7.7); Neut % (Auto) 51.6 % (16.0-70.0); Platelet Count 203 th/mm3 (150-450); Red Blood Count 2.24 mil/mm3 (4.00-5.30); Red Cell Distribution Width 16.8 % (11.6-17.2); White Blood Count 6.5 th/mm3 (4.0-11.0)
[2018-02-06 07:36] LABS: INR 1.2 Ratio; Prothrombin Time 11.8 sec (9.8-11.6)
[2018-02-06 07:53] LABS: Alanine Aminotransferase 19 U/L (10-53); Albumin 1.9 g/dL (3.4-5.0); Alkaline Phosphatase 495 U/L (45-117); Anion Gap 6 meq/L (5-15); Aspartate Aminotransferase 22 U/L (15-37); Blood Urea Nitrogen 13 mg/dL (7-18); Calcium 7.4 mg/dL (8.5-10.1); Carbon Dioxide 25.9 meq/L (21.0-32.0); Chloride 106 meq/L (98-107); Glomerular Filtration Rate Greater Than 89 mL/min (>89); Glucose,Random 117 mg/dL (74-106); Magnesium 1.8 mg/dL (1.5-2.5); Phosphorus 2.4 mg/dL (2.5-4.9); Potassium 3.7 meq/L (3.5-5.1); Sodium 138 meq/L (136-145); Total Protein 6.9 g/dL (6.4-8.2)
[2018-02-06] MEDS: Chlorhexidine 0.12% Oral Kit 15 ML UDC OROPHARYNG SCH ×2 (09:00→23:17)
[2018-02-06] MEDS: Insulin NovoLIN Regular Correctional Sugar Inj SQ SCH ×4 (09:47→23:25)
[2018-02-06] MEDS: Lactic Acid (Ammonium Lactate) 12% Lotion 225 GM Bottle TOPICAL SCH ×2 (09:47→22:00)
[2018-02-06] MEDS: hydrALAZINE 50 MG Tablet NG/OG SCH ×3 (09:49→19:19)
[2018-02-06] MEDS: Senna/Docusate Sodium 8.6/50 MG Tablet NG/OG SCH ×2 (09:49→23:28)
[2018-02-06] MEDS: Metoprolol Tartrate 50 MG Tablet NG/OG SCH ×2 (09:49→23:20)
[2018-02-06] MEDS: Lansoprazole ODT 15 MG Tablet NG/OG SCH (09:49)
[2018-02-06] MEDS: Insulin Detemir Inj 1,000 UNIT/10 ML Vial SQ SCH ×2 (10:00→23:27)
--- NOTE | 2018-02-06 14:57 | P.PNIM ---
Subjective Interval history: Follow up for sepsis, necrotizing fascitis: Patient seen and examined. Patient states she is "so-so". She reports her buttock pain is better controlled. She is asking to be changed back to full code. She continues to refuse PEG tube placement. She denies any fever or chills. She denies any nausea or vomiting. She denies any abdominal pain. She denies any chest pain or shortness of breath. Physical Exam Vital signs: Last Vital Signs Temp 97.4 F L 02/06/18 12:00 Pulse 86 02/06/18 12:00 Resp 24 02/06/18 12:00 BP 134/84 02/06/18 12:00 Pulse Ox 100 02/06/18 12:00 Intake & Output 02/04/18 02/05/18 02/06/18 02/07/18 06:59 06:59 06:59 06:59 Intake Total 2500 / 2500 2200 / 2200 2000 / 2000 Output Total 1200 / 1200 400 / 400 1600 / 1600 Balance 1300 / 1300 1800 / 1800 400 / 400 Weight 70.6 kg 70.7 kg Narrative: General: Cachectic middle-aged female patient who appears much older than stated age, INAD. Chronically ill appearing., on T-piece via tracheostomy. Awake and alert. NGT in place. SKIN: Warm and dry. +Scattered ecchymosis/petechia. HEENT: NC/AT. EOMI. Sclera clear, anicteric. No nasal drainage. Respiratory: Supplemental oxygen through tracheostomy. Mostly clear, occ. rhonchi. Cardiovascular: RRR. +1-2/6 systolic murmur LSB. Abdomen: Soft, no guarding, nondistended, nontender. +BS. Back: Wound vac in place. Musculoskeletal: s/p right BKA. Left foot with extensive necrosis and erythema of the second digit. Also noted to have area of necrosis on the third digit with surrounding erythema. Additionally, small area of necrosis noted on the outer aspect of the left great toe. Neurological: Asleep but easily awakens to voice, oriented x 2-3. Following commands. Able to move all extremities spontaneously. No focal deficits. Psychiatric: Calm and cooperative. Urinary Catheter Management Indwelling Urethral Catheter: Cath placed during this visit: yes Urethral indwelling: Yes Reason for continuing: Acute urinary retention Insertion date: 01/13/18 Insertion time: 01:00 1: Cath placed during this visit: yes, but has since been removed by the nurse Urethral indwelling: Yes Insertion date: 12/15/17 Removal date: 01/13/18 Removal time: 01:00 Results Labs CBC & Chem 7: 02/06/18 06:43 02/06/18 06:43 Labs: Microbiology 02/01/18 08:05 Blood - Peripheral Aerobic Blood Culture - Final No growth in 5 days 02/01/18 08:05 Blood - Peripheral Anaerobic Blood Culture - Final No growth in 5 days 02/01/18 07:51 Blood - Peripheral Aerobic Blood Culture - Final No growth in 5 days 02/01/18 07:51 Blood - Peripheral Anaerobic Blood Culture - Final No growth in 5 days 12/24/17 12:20 Tissue - Buttock Acid Fast Bacilli Smear - Final No acid fast bacilli seen 12/24/17 12:20 Tissue - Buttock Mycobacterial Culture - Final No growth in 6 weeks Procedures Procedures: lumbar wd debridement with wd vac Assessment and Plan (1) Fasciitis: Code(s): M72.9 - Fibroblastic disorder, unspecified Status: Acute Plan 52 year old female was initially critically ill and in septic shock with necrotizing fasciitis emanating from a deep chronic sacral decubitus ulcer. She has required multiple OR trips for I&D and VAC changes. Family request continued aggressive care. She had a recurrent bout of severe sepsis on 01/14 but after 2 debridements, she has improved. Now on T-piece, hemodynamically stable, however due to the declining NG tube and colostomy, it may be difficult to manage her active wound healing. Initially with encephalopathic, now has resolved. Was weaned off Levophe. Myocardial dysfunction due to sepsis. Resolved Recurrent sepsis, resolved Recent CAUTI, PSAE PNA, PSAE, likely aspiration -BC with no growth x 5 days -Started on Zithromax and Zosyn, now off all antibiotics per ID. -ID following, appreciate assistance -white count improved, 18 -> 6.5 Necrotizing soft tissue infection - General surgery service following back wounds, scheduling debridement and continuation with wound VAC. Plastic, Dr. De La Rosa reviewed patient's case on January 24 and felt she was not a good candidate for skin grafting as a wounds are not ready. He is also recommending a diverting colostomy which the patient is refusing. Complex case as patient is declining some recommended treatments. -pt. bleeding from left hip 01/31, required surgicel and several silver nitrate sticks used for cauterizing. Wound vac reapplied. -continue wound vac, no active bleeding -Palliative care is following. Overall poor prognosis. Patient requesting code status be changed back to Full Code. Acute hypoxic and hypercarbic respiratory failure- persistent - s/p Trach in OR 12/28/17. -Tolerating T-piece -02/01 CXR results noted, inc. right lung opacity. Per ID, monitoring off all antibiotics. Diabetes mellitus type II, initially uncontrolled, insulin-dependent Severe hyperglycemia. - scheduled Levemir resumed now that patient is back on TF - continue accucheks and ISS coverage Acute protein calorie malnutrition- severe Severe dysphagia Has refused peg tube placement - strict NPO - Follow prealbumin weekly - Dignishield placed to protect wounds from soilage. - Follow prealbumin weekly. - Pulled out NGT, initially refused replacement but has since acquiesced. TF resumed. Acute kidney injury resolved -Tristan required for hourly urine output and to protect perineal region. -May ultimately require colostomy to protect this region however patient has declined. -Per previous provider cannot think of a solution to the problem of continuous wound soilage. Refused colostomy Left upper extremity DVT - DVT left internal jugular, subclavian, axillary and distal arm veins. - Cannot anticoagulate secondary to blood loss anemia requiring blood transfusion, frequent surgeries - will repeat LUE doppler to assess clot. Will consider hematology consultation to assist with anticoagulation options. Gangrene left 2nd digit -Evaluated by Dr. Valentine who recommended Betadine wet-to-dry dressing changes and reconsult when patient out of ICU for further evaluation and possible amputation. Will reconsult podiatry, appreciate assistance. Anemia, multifactorial, due to recurrent sepsis, anemia of chronic disease and episode of acute blood loss from Hgb as low as 6 s/p transfusion x 1 unit PRBCs 02/01 -Hemoglobin appears stable -No evidence of active bleeding. Continue to monitor -Continue monitor CBC as indicated Pepcid for GI ulcer prophylaxis SCDs/Lovenox for DVT prophylaxis on hold. Progress Note: Quality VTE Deep Vein Thrombosis/Pulmonary Embolism Present on Admission: No
[2018-02-06] MEDS: Collagenase Oint 30 GM Tube TOPICAL SCH (15:07)
--- NOTE | 2018-02-06 18:31 | US ---
EXAM DATE: 02/06/2018 6:22 PM EST AGE/SEX: 52 years / Female INDICATIONS: Left arm pain. CLINICAL DATA: This is the patient's subsequent encounter. Patient reports that signs and symptoms h ave been present for 2 months and indicates a pain score of Nonresponsive. MEDICAL/SURGICAL HISTORY: Hypertension. Hepatitis C. Gastroesophageal reflux disease. Decubi nirmal ulcer. Diabetes. Osteomyelitis. Peripheral neuropathy. Peripheral vascular disease. sec tion. Below the knee amputation. COMPARISON: [facility] [place] DOPPLER [place] LEFT, 12/22/2017. . FINDINGS: There is nonocclusive thrombus seen in the basilar vein. The left internal jugular, subcla vian, axillary, brachial, and cephalic veins are patent. Other: None. CONCLUSION: Nonocclusive thrombus seen in the left basilar vein. Electronically signed by: Derek Neil MD Board Certified Radiologist 02/06/2018 6:29 PM EST
[2018-02-06] MEDS ORDERED: Povidone Iodine 10% Top Soln 118 ML Bottle TOPICAL ONE (19:01)
--- NOTE | 2018-02-06 19:02 | P.PNPOD ---
Subjective Interval history: Patient is minimally verbal due to tracheostomy, the patient communicates by writing Physical Exam Vital signs: Vital Signs 02/05/18 20:00 02/06/18 00:00 02/06/18 01:00 Temperature 97.8 F 97.8 F Pulse Rate 78 86 Respiratory Rate 18 18 18 Blood Pressure 158/77 H 135/75 Pulse Oximetry 98 100 02/06/18 04:00 02/06/18 05:24 02/06/18 07:45 Temperature 97.8 F Pulse Rate 89 90 Respiratory Rate 18 18 Blood Pressure 128/71 Pulse Oximetry 100 02/06/18 08:00 02/06/18 11:49 02/06/18 12:00 Temperature 97.5 F L 97.4 F L Pulse Rate 97 H 84 86 Respiratory Rate 24 24 Blood Pressure 155/82 H 134/84 Pulse Oximetry 100 100 02/06/18 14:48 02/06/18 16:00 Temperature 97.8 F Pulse Rate 88 Respiratory Rate 22 Blood Pressure 134/77 Pulse Oximetry 100 100 Intake & Output 02/05/18 02/06/18 02/06/18 18:59 06:59 18:59 Intake Total 2000 / 1999 1000 / 1000 Output Total 1600 / 1600 Balance 400 / 400 1000 / 1000 Intake: IV 1999 1000 / 1000 D5W/1/2 NS Inj 1,000 ML @ 84 1999 / 1999 1000 / 1000 mls/hr IV.CONT .[id number] [facility] Rx# :[id number] Oral 0 / 0 Output: Urine Amount (Catheter) 1600 / 1600 Indwelling Urethral Catheter 1600 / 1600 Other: Mode Setting Left buttock and sacral wounds Continuous Continuous Posterior Sacrum Continuous Continuous back and L buttock Continuous Continuous Date of Last Bowel Movement 02/06/18 Narrative: Tracheostomy and NG tube in place - Constitutional mild distress - Neurological Alert and oriented x3 - Routine Extremities Exam Comments: Left foot full-thickness eschar dorsal aspect secondary approximately 2 cm x 1 cm superficial smaller dorsal aspect left third digit 0.5 cm x 0.5 cm minimal periwound erythema noted appears stable foot is warm CFT to digits appear to be intact sensation decreased to light touch, right below the knee amputation noted Medications and Allergies Active Medications: Active Medications Acetaminophen (Tylenol) 650 mg NG/OG ONCE [facility] Last Admin: 01/15/18 16:38 Dose: 650 mg Acetaminophen (Tylenol) 650 mg NG/OG Q4H PRN PRN Reason: FEVER Last Admin: 02/04/18 23:38 Dose: 650 mg Al Hydroxide/Mg Hydroxide (Milk Of Kristen Zamarripa) 30 ml NG/OG Q12H PRN PRN Reason: Mild Constipation Albuterol (Duoneb Neb (Prn)) 1 ampul NEB Q2HR NEB PRN PRN Reason: WHEEZING Last Admin: 01/18/18 04:39 Dose: 1 ampul Bisacodyl (Dulcolax Supp) 10 mg RECTAL DAILY PRN PRN Reason: SEVERE CONSITIPATION Chlorhexidine Gluconate (Peridex 0.12% Oral Kit) 15 ml OROPHARYNG BID@0800, 2000 [facility] Last Admin: 02/06/18 09:00 Dose: 15 ml Clonazepam (Klonopin) 0.5 mg NG/OG Q8HR [facility] Last Admin: 02/06/18 15:06 Dose: 0.5 mg Collagenase (Santyl Oint) 1 applicatio TOPICAL DAILY [facility] Last Admin: 02/06/18 15:07 Dose: Not Given Dextrose (D50w Vial) 50 ml IV.PUSH UNSCH PRN PRN Reason: PER HYPOGLYCEMIA PROTOCOL Last Admin: 02/01/18 12:22 Dose: 50 ml Enoxaparin Sodium (Lovenox Inj) 30 mg SQ DAILY@1800 [facility] Last Admin: 01/31/18 17:29 Dose: Not Given Glucagon (Glucagon Inj) 1 mg OTHER PRN PRN PRN Reason: for Hypoglycemia Protocol Hydralazine HCl (Apresoline) 50 mg NG/OG TID [facility] Last Admin: 02/06/18 15:06 Dose: 50 mg Hyoscyamine (Levsin) 0.125 mg PO Q4H PRN PRN Reason: secretions Last Admin: 02/05/18 21:49 Dose: 0.125 mg Insulin Detemir (Levemir Inj) 16 unit SQ BID [facility] Last Admin: 02/06/18 10:00 Dose: 16 unit Insulin Human Regular (Novolin R Correctional Sugar Inj) 0 units SQ ACHS [facility]; Protocol Last Admin: 02/06/18 18:16 Dose: Not Given L-Arginine/L-Glutamine/Calcium HMB (Alek Packet) 1 packet NG/OG BID [facility] Last Admin: 02/06/18 10:00 Dose: 1 packet Lactic Acid (Lac-Hydrin 12% Lotion) 1 applicatio TOPICAL BID [facility] Last Admin: 02/06/18 09:47 Dose: 1 applicatio Lactulose (Lactulose Liq) 30 ml NG/OG DAILY PRN PRN Reason: SEVERE CONSITIPATION Lansoprazole (Prevacid Solutab) 15 mg NG/OG DAILY [facility] Last Admin: 02/06/18 09:49 Dose: 15 mg Levothyroxine Sodium (Synthroid) 25 mcg PO DAILY@0600 [facility] Last Admin: 02/06/18 05:23 Dose: 25 mcg Lisinopril (Prinivil) 5 mg NG/OG DAILY [facility] Last Admin: 02/01/18 12:06 Dose: Not Given Metoprolol Tartrate (Lopressor) 50 mg NG/OG BID [facility] Last Admin: 02/06/18 09:49 Dose: 50 mg Miscellaneous Medication () 1 each OROPHARYNG 0000,0400,1200,1600 [facility] Last Admin: 02/06/18 13:00 Dose: 1 each Morphine Sulfate (Morphine Inj) 4 mg IV.PUSH Q4H PRN PRN Reason: PAIN SCALE 6 TO 10 Last Admin: 02/06/18 15:19 Dose: 4 mg Naloxone HCl (Narcan Inj) 0.4 mg IV.PUSH UNSCH PRN PRN Reason: SEE LABEL COMMENTS Ondansetron HCl (Zofran Inj) 4 mg IV.PUSH Q6H PRN PRN Reason: NAUSEA OR VOMITING Last Admin: 01/03/18 23:55 Dose: 4 mg Oxycodone/Acetaminophen (Percocet 10/325 Mg) 1 tab PO Q4H PRN PRN Reason: PAIN SCALE 6 TO 10 Last Admin: 02/06/18 10:00 Dose: 1 tab Oxycodone/Acetaminophen (Percocet 5/325 Mg) 1 tab PO Q4H PRN PRN Reason: PAIN SCALE 3 TO 5 Senna/Docusate Sodium (Belinda-Colace) 1 tab NG/OG BID [facility] Last Admin: 02/06/18 09:49 Dose: 1 tab Sennosides (Senokot) 17.2 mg NG/OG Q12H PRN PRN Reason: Moderate Constipation Sodium Chloride (Ns Flush) 2 ml IV.FLUSH BID [facility] Last Admin: 02/06/18 09:50 Dose: Not Given Sodium Chloride (Ns Flush) 2 ml IV.FLUSH PRN PRN PRN Reason: FLUSH AFTER USING IV ACCESS Last Admin: 01/07/18 22:06 Dose: 2 ml Sterile Water (Free Water) 200 ml G-TUBE Q4HR [facility] Last Admin: 02/06/18 12:54 Dose: 200 ml Allergies Allergy/AdvReac Type Severity Reaction Status Date / Time No Known Allergies Allergy Verified 12/15/17 07:54 Home Medications Medication Instructions Recorded Confirmed Type insulin asp prt-insulin aspart 1 sliding scale dose SUBCUT UD 11/28/17 12/15/17 History [Novolog Mix 70-30 U-100 Insuln] insulin detemir U-100 [Levemir 15 unit SUBCUT QPM 11/28/17 12/15/17 History U-100 Insulin] Results - Labs CBC & Chem 7: 02/06/18 06:43 02/06/18 06:43 Laboratory Results - last 24 hr 02/05/18 02/06/18 02/06/18 22:11 06:43 06:43 WBC 6.5 RBC 2.24 L Hgb 7.5 L Hct 21.7 L MCV 97.3 MCH 33.6 MCHC 34.6 RDW 16.8 Plt Count 203 MPV 9.5 Neut % (Auto) 51.6 Lymph % (Auto) 31.3 [place] % (Auto) 7.3 Eos % (Auto) 9.1 H Baso % (Auto) 0.7 Neut # (Auto) 3.3 Lymph # (Auto) 2.0 [place] # (Auto) 0.5 Eos # (Auto) 0.6 H Baso # (Auto) 0.0 WBC Differential . Differential Comment Auto diff final PT INR Sodium 138 Potassium 3.7 Chloride 106 Carbon Dioxide 25.9 Anion Gap 6 BUN 13 Creatinine 0.40 L Estimated GFR Greater than 89 POC Glucose 263 H Random Glucose 117 H Calcium 7.4 L* Calcium Adj for Albumin 9.1 Phosphorus 2.4 L Magnesium 1.8 Total Bilirubin 0.3 AST 22 ALT 19 Alkaline Phosphatase 495 H Total Protein 6.9 Albumin 1.9 L 02/06/18 02/06/18 02/06/18 06:43 09:46 12:39 WBC RBC Hgb Hct MCV MCH MCHC RDW Plt Count MPV Neut % (Auto) Lymph % (Auto) [place] % (Auto) Eos % (Auto) Baso % (Auto) Neut # (Auto) Lymph # (Auto) [place] # (Auto) Eos # (Auto) Baso # (Auto) WBC Differential Differential Comment PT 11.8 H INR 1.2 Sodium Potassium Chloride Carbon Dioxide Anion Gap BUN Creatinine Estimated GFR POC Glucose 90 126 H Random Glucose Calcium Calcium Adj for Albumin Phosphorus Magnesium Total Bilirubin AST ALT Alkaline Phosphatase Total Protein Albumin 02/06/18 18:11 WBC RBC Hgb Hct MCV MCH MCHC RDW Plt Count MPV Neut % (Auto) Lymph % (Auto) [place] % (Auto) Eos % (Auto) Baso % (Auto) Neut # (Auto) Lymph # (Auto) [place] # (Auto) Eos # (Auto) Baso # (Auto) WBC Differential Differential Comment PT INR Sodium Potassium Chloride Carbon Dioxide Anion Gap BUN Creatinine Estimated GFR POC Glucose 115 H Random Glucose Calcium Calcium Adj for Albumin Phosphorus Magnesium Total Bilirubin AST ALT Alkaline Phosphatase Total Protein Albumin Microbiology 02/01/18 08:05 Blood - Peripheral Aerobic Blood Culture - Final No growth in 5 days 02/01/18 08:05 Blood - Peripheral Anaerobic Blood Culture - Final No growth in 5 days 02/01/18 07:51 Blood - Peripheral Aerobic Blood Culture - Final No growth in 5 days 02/01/18 07:51 Blood - Peripheral Anaerobic Blood Culture - Final No growth in 5 days 12/24/17 12:20 Tissue - Buttock Acid Fast Bacilli Smear - Final No acid fast bacilli seen 12/24/17 12:20 Tissue - Buttock Mycobacterial Culture - Final No growth in 6 weeks - Imaging Impressions Venous Doppler Study 02/06/18 00:00 CONCLUSION: Nonocclusive thrombus seen in the left basilar vein. - Procedures lumbar wd debridement with wd vac Assessment and Plan - Assessment (1) Gangrene of toe Code(s): I96 - Gangrene, not elsewhere classified Status: Acute - Plan I had a discussion with the patient regarding the full-thickness eschar that likely the best treatment would be digit amputation 2 and 3. She was not happy with any intervention at this point, we will follow weekly, wound care orders placed recommend Betadine swab keep wounds stable if any acute worsening over the next week please reconsult
--- NOTE | 2018-02-06 21:40 | XR ---
EXAM DATE: 02/06/2018 9:36 PM EST AGE/SEX: 52 years / Female INDICATIONS: Abdominal distension. CLINICAL DATA: This is the patient's initial encounter. Patient reports that signs and symptoms have been present for 1 day and indicates a pain score of Nonresponsive. MEDICAL/SURGICAL HISTORY: . Hypertension. Diabetes mellitus type II. Hepatitis C. GERD. Sepsis. section. [place]PAR[place]: [facility] [place] 02[place]/2018. . FINDINGS: There is a Dobbhoff tube with the tip in the upper stomach. Dilated bowel is not seen. Skin marcelle are seen in the right lower quadrant. CONCLUSION: Negative KUB. Electronically signed by: Derek Neil MD Board Certified Radiologist 02/06/2018 9:39 PM EST
[2018-02-07] MEDS: Oral Hygiene Kit OROPHARYNG SCH ×4 (00:26→17:52)
[2018-02-07] MEDS: oxyCODONE/Acetaminophen 10/325 Tablet PO PRN ×2 (06:16→12:35)
[2018-02-07] MEDS: clonazePAM 0.5 MG Tablet NG/OG SCH ×3 (06:17→21:58)
[2018-02-07] MEDS: Insulin NovoLIN Regular Correctional Sugar Inj SQ SCH ×4 (08:52→21:52)
[2018-02-07] MEDS: Chlorhexidine 0.12% Oral Kit 15 ML UDC OROPHARYNG SCH ×2 (08:53→21:52)
[2018-02-07] MEDS: Senna/Docusate Sodium 8.6/50 MG Tablet NG/OG SCH ×2 (08:53→21:52)
[2018-02-07] MEDS: Metoprolol Tartrate 50 MG Tablet NG/OG SCH ×2 (08:53→21:50)
[2018-02-07] MEDS: hydrALAZINE 50 MG Tablet NG/OG SCH ×3 (08:53→17:53)
[2018-02-07] MEDS: Lansoprazole ODT 15 MG Tablet NG/OG SCH (08:53)
[2018-02-07] MEDS: Collagenase Oint 30 GM Tube TOPICAL SCH (08:54)
[2018-02-07] MEDS: Lactic Acid (Ammonium Lactate) 12% Lotion 225 GM Bottle TOPICAL SCH ×2 (08:55→21:57)
[2018-02-07] MEDS: Insulin Detemir Inj 1,000 UNIT/10 ML Vial SQ SCH (08:55)
--- NOTE | 2018-02-07 14:54 | P.PNIM ---
Subjective Interval history: Follow up on patient with recurrent sepsis. Patient seen and examined. Patient says she has not eaten anything in days. Explained to patient she failed her swallow study and it is not safe for her to eat. She says she can eat fine. She says the ST told her she did good. She says she wants to go home and enjoy what little time she has left until she dies. She asks where Hospice center is located and if spouses are allowed to visit. She says her pain is not well controlled with the Morphine. She says she is in constant pain. Patient was evaluated by podiatry who recommended digit amputation but patient refused. Physical Exam Vital signs: Last Vital Signs Temp 97.9 F 02/07/18 12:41 Pulse 88 02/07/18 12:41 Resp 18 02/07/18 12:41 BP 142/68 H 02/07/18 12:41 Pulse Ox 97 02/07/18 12:41 Intake & Output 02/05/18 02/06/18 02/07/18 02/08/18 06:59 06:59 06:59 06:59 Intake Total 2200 / 2200 2000 / 2000 1000 / 1000 Output Total 400 / 400 1600 / 1600 1500 / 1500 Balance 1800 / 1800 400 / 400 -500 / -500 Weight 70.7 kg 70.7 kg Narrative: General: Cachectic middle-aged female patient who appears much older than stated age. Chronically ill appearing. On T-piece via tracheostomy. Awake and alert. NGT in place. Not in any acute distress. SKIN: Warm and dry. +Scattered ecchymosis/petechia over entire body. HEENT: NC/AT. EOMI. Sclera clear, anicteric. No nasal drainage. Respiratory: Supplemental oxygen through tracheostomy. Mostly clear, occ. rhonchi. Cardiovascular: RRR. +1-2/6 systolic murmur LSB. Abdomen: Soft, no guarding, nondistended, nontender. +BS. Back: Wound vac in place. Musculoskeletal: s/p right BKA. Left foot with extensive eschar and erythema of the second digit. Also noted to have area of eschar on the third digit with surrounding erythema. Additionally, small area of necrosis noted on the outer aspect of the left great toe. Foot is warm. Neurological: Asleep but easily awakens to voice. CN II-XII grossly intact. Following commands. Able to move all extremities spontaneously. No focal deficits. Psychiatric: Calm and cooperative. Urinary Catheter Management Indwelling Urethral Catheter: Cath placed during this visit: yes Urethral indwelling: Yes Reason for continuing: Severe pressure ulcer/wound Insertion date: 01/13/18 Insertion time: 01:00 1: Cath placed during this visit: yes, but has since been removed by the nurse Urethral indwelling: Yes Insertion date: 12/15/17 Removal date: 01/13/18 Removal time: 01:00 Results Labs CBC & Chem 7: 02/06/18 06:43 02/06/18 06:43 Labs: Microbiology 02/01/18 08:05 Blood - Peripheral Aerobic Blood Culture - Final No growth in 5 days 02/01/18 08:05 Blood - Peripheral Anaerobic Blood Culture - Final No growth in 5 days 02/01/18 07:51 Blood - Peripheral Aerobic Blood Culture - Final No growth in 5 days 02/01/18 07:51 Blood - Peripheral Anaerobic Blood Culture - Final No growth in 5 days Imaging Imaging: Impressions Abdomen X-Ray 02/06/18 00:00 CONCLUSION: Negative KUB. Venous Doppler Study 02/06/18 00:00 CONCLUSION: Nonocclusive thrombus seen in the left basilar vein. 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 She has required multiple OR trips for I&D and VAC changes. Family request continued aggressive care. She had a recurrent bout of severe sepsis on 01/14 but after 2 debridements, she has improved. Now on T-piece, hemodynamically stable, however due to the declining NG tube and colostomy, it may be difficult to manage her active wound healing. Initially with encephalopathic, now has resolved. Was weaned off Levophe. Myocardial dysfunction due to sepsis. Resolved Recurrent sepsis, resolved Recent CAUTI, PSAE PNA, PSAE, likely aspiration -BC with no growth x 5 days -Started on Zithromax and Zosyn, now off all antibiotics per ID. -ID following, appreciate assistance -white count improved, 18 -> 6.5 Necrotizing soft tissue infection - General surgery service following back wounds, scheduling debridement and continuation with wound VAC. Plastic, Dr. De La Rosa reviewed patient's case on January 24 and felt she was not a good candidate for skin grafting as a wounds are not ready. He is also recommending a diverting colostomy which the patient is refusing. Complex case as patient is declining some recommended treatments. -pt. bleeding from left hip 01/31, required surgicel and several silver nitrate sticks used for cauterizing. Wound vac reapplied. -continue wound vac, no active bleeding noted. ALTAGRACIA Andrade, no wound care nurse for dressing changes next week due to holiday. May have to do wet/dry in the interim. Cleared to resume Lovenox for DVT prophylaxis, monitor for bleeding recurrence. -Palliative care is following. Overall poor prognosis. Patient requesting code status be changed back to Full Code. Patient continues to refuse recommended treatments. She waffles on her goals of care. She is complaining we do not feed her and says she can eat without any problems. She doesn't seem to grasp that she continually fails her swallow evaluations. She says her can feed her when she goes home. She continues to refuse PEG placement. She is refusing recommended colostomy and left foot digit amputation. Will consult Psychiatry to assist with depression and help assess capacity. Acute hypoxic and hypercarbic respiratory failure- persistent - s/p Trach in OR 12/28/17. -Tolerating T-piece -02/01 CXR results noted, inc. right lung opacity. Per ID, monitoring off all antibiotics. Diabetes mellitus type II, initially uncontrolled, insulin-dependent Severe hyperglycemia. -BS low, 75. Hold scheduled Levemir. -continue accucheks and ISS coverage Acute protein calorie malnutrition- severe Severe dysphagia Has refused peg tube placement. 02/07 discussed again importance of adequate nutrition and strongly advised for PEG tube placement but patient continues to refuse. -strict NPO -Dignishield placed to protect wounds from soilage. -Pulled out NGT, initially refused replacement but has since acquiesced. TF resumed. Acute kidney injury resolved -Tristan required for hourly urine output and to protect perineal region. -May ultimately require colostomy to protect this region however patient has declined. -Per previous provider cannot think of a solution to the problem of continuous wound soilage. Refused colostomy. Left upper extremity DVT -12/22 doppler +DVT left internal jugular, subclavian, axillary and distal arm veins. -Cannot anticoagulate secondary to blood loss anemia requiring blood transfusion , frequent surgeries -02/06 repeat Doppler US LUE shows nonocclusive thrombus in the left basilar vein Gangrene left 2nd digit -reevaluated by podiatry, appreciate assistance. Recommended digit amputation but patient refused. Wound care orders placed. Anemia, multifactorial, due to recurrent sepsis, anemia of chronic disease and acute blood loss anemia Hgb as low as 6 s/p transfusion x 1 unit PRBCs 02/01 -Hemoglobin appears stable -No evidence of active bleeding. Continue to monitor -Continue monitor CBC as indicated Pepcid for GI ulcer prophylaxis SCDs/Lovenox for DVT prophylaxis resumed, monitor for bleeding recurrence Progress Note: Quality VTE Deep Vein Thrombosis/Pulmonary Embolism Present on Admission: No
[2018-02-07] MEDS: Morphine Inj 4 MG/ML Vial IV.PUSH PRN ×2 (17:44→21:51)
[2018-02-07] MEDS: Enoxaparin Inj 30 MG/0.3 ML Syringe SQ SCH (17:51)
--- NOTE | 2018-02-07 19:21 | P.PNWCN ---
Wound Care Nurse Consult Description: Patient seen today for removal Veraflow cleanse dressing. Communicated with: VISHAL gold and TRISTON Andrade Recommendation: Please change moist to dry dressing per General surgery's order Wound Vac - Wound Vac Left Buttocks and sacrum Wound Vac Discontinue Date: 02/07/18 Wound Vac Discontinue Time: 17:40 Wound Vac DC'd by: Valentina Mccarthy Incision - Patient Status Premedicated for Pain Prior to Dressing Change: Yes - Incision Left Buttocks Incision Assessment: Ongoing Incision Type: Incision Incision Description: Open Incision Bed Appearance: Red Surrounding Tissue Appearance: [place], Shiny Surrounding Tissue Temperature: Cool Drainage Description: Sanguinous Drainage Amount: Minimal Drainage Odor: No Odor Incision Dressing Status: Changed Incision Cleaning Solution: Saline Incision Packing Type: Gauze Pads Primary Dressing: Gauze Pad Cover Dressing: Other (ABD pad) Tape Type: medifix Incision Dressing Change Date: 02/07/18 Sacrum Incision Type: Incision Incision Description: Open Incision Bed Appearance: Red, Yellow Surrounding Tissue Appearance: [place], Shiny Surrounding Tissue Temperature: Cool Drainage Description: Sanguinous Drainage Amount: Minimal Drainage Odor: No Odor Incision Dressing Status: Changed Incision Cleaning Solution: Saline Incision Packing Type: Gauze Pads Primary Dressing: gauze pads and maxorb II Cover Dressing: Other (ABD pads) Tape Type: Medfix Incision Dressing Change Date: 02/07/18 - Additional Information Patient seen on for Veraflow cleanse wound VAC removal. Patient laying in K4 bed [facility] [place]. Patient was premedicated for pain before Veraflow VAc dressing was removed.Removed all VAC dressing pieces from wound bed and undermined, to reveal open wounds. Wounds to sacrum measures 17cm x 19cm x 1.5cm at the deepest area. Wound is flush with skin at 6 o'clock. Wound bed presents with ~20% exposed Fascia, ~10% slough and ~ 70% red granulated tissue. Bone is still palpated. L buttock wound presents with 100% granulated tissue.Wound measures 10cm x 15cm x 1.1cm.Wound Drainage is minimal and sanguinous. Wound has some undermining between 7 and 8 o'clock measuring 2.3cm. Applied moist to dry dressing to both wounds as follows:Cleansed both wounds with normal saline and patted dry. Applied saline moistened 4x4 fluffed gauze pads to wound bed and covered dry dry gauze pads. Applied Maxorb II over dry gauze pads on sacral wound, where drainage tends to be heavier at times. Then covered both wounds with ABD pads secured with medfix tape. Applied Cavilon skin barrier film before applying medfix tape to skin.Patient tolerated fairly with complaints of pain with cleaning and packing of wound beds. Recommend removing Veraflow VAC at this time, patient complains of severe pain, uncontrolled with pain medication. Patient has difficulty with being positioned to her side for a period of time to allow for VAC dressing to be applied.
[2018-02-08] MEDS: Oral Hygiene Kit OROPHARYNG SCH ×4 (01:15→15:19)
[2018-02-08] MEDS: Morphine Inj 4 MG/ML Vial IV.PUSH PRN ×2 (01:35→05:42)
[2018-02-08] MEDS: clonazePAM 0.5 MG Tablet NG/OG SCH ×3 (05:42→21:37)
[2018-02-08] MEDS: oxyCODONE/Acetaminophen 10/325 Tablet PO PRN ×2 (07:41→21:38)
[2018-02-08] MEDS: Insulin NovoLIN Regular Correctional Sugar Inj SQ SCH ×4 (08:25→21:39)
[2018-02-08] MEDS: Senna/Docusate Sodium 8.6/50 MG Tablet NG/OG SCH ×2 (08:25→21:37)
[2018-02-08] MEDS: Lansoprazole ODT 15 MG Tablet NG/OG SCH (08:25)
[2018-02-08] MEDS: Metoprolol Tartrate 50 MG Tablet NG/OG SCH ×2 (08:25→21:37)
[2018-02-08] MEDS: hydrALAZINE 50 MG Tablet NG/OG SCH ×3 (08:26→17:56)
[2018-02-08] MEDS: Collagenase Oint 30 GM Tube TOPICAL SCH (08:27)
[2018-02-08] MEDS: Lactic Acid (Ammonium Lactate) 12% Lotion 225 GM Bottle TOPICAL SCH ×2 (08:27→21:40)
[2018-02-08] MEDS: Chlorhexidine 0.12% Oral Kit 15 ML UDC OROPHARYNG SCH ×2 (08:28→21:38)
[2018-02-08] MEDS: HYDROmorphone PF Inj 1 MG/ML Ampul IV.PUSH PRN ×2 (11:08→15:59)
[2018-02-08] MEDS: Insulin Detemir Inj 1,000 UNIT/10 ML Vial SQ SCH ×2 (12:06→21:39)
--- NOTE | 2018-02-08 12:26 | P.CONPSY ---
Provisional Diagnosis Admission Date: December 15, 2017 09:56 [place] I.: Adjustment disorder with mixed depressed mood and anxiety History of Present Illness Service: Medicine Primary Care Provider: UNKNOWN Chief Complaint: Fall at home, diabetes uncontrolled History of Present Illness: The patient is a 52 year-old woman, domiciled in [facility] with her , with no previous psychiatric history, no pre-suicide attempts, no psychiatric hospitalizations, she denies the use of alcohol and illegal drugs, medical history of diabetes, hypertension, anemia who was initially critically ill and in septic shock with necrotizing fasciitis emanating from a deep chronic sacral decubitus ulcer. She has required multiple OR trips for I&D and VAC changes. Admitted due to recurrent sepsis, Necrotizing soft tissue infection, Acute hypoxic and hypercarbic respiratory failure- persistent, s/p Trach in OR 12/28/17. Consulted to me today for depression and anxiety. Chart reviewed. Communication affective by writing, but limited by tracheostomy. Patient reports feeling much better today. She says that she has been feeling depressed at times due to her length of hospitalization. She says that holidays are coming and she is still here. She would love to be back with her . Today her mood is much better. She says that is 7 of 10. Denies anxiety at the moment. She denies hopelessness, helplessness, denies worthlessness, she does report sleeping nothing during the night. She denies suicidal and homicidal ideation, denies visual and auditory hallucinations. The patient is fully oriented x3. PPHX: with no previous psychiatric history, no pre-suicide attempts, no psychiatric hospitalizations, she denies the use of alcohol and illegal drugs, PMhx: medical history of diabetes, hypertension, anemia who was initially critically ill and in septic shock with necrotizing fasciitis emanating from a deep chronic sacral decubitus ulcer Family Hx: No family psychiatric Substance Hx: Denies the use of illegal drugs or alcohol Social Hx: woman, born and raised in [place], domiciled in [facility] with her , Review of Systems All other systems reviewed negative except as stated in HPI Psychiatric: Reports anxiety, Reports depression PMFSH - History History Provided By: Patient, Medical Record - Medical History Medical History: Medical History (Last Reviewed 02/08/18 @ 07:23 by Gladis Escobar) Decubital ulcer GERD (gastroesophageal reflux disease) History of Clostridium difficile colitis History of diabetic gastroparesis MDRO (multiple drug resistant organisms) resistance Onset Date: ~12/15/17 Peripheral neuropathy Peripheral vascular disease Benign hypertension Diabetes Hepatitis C virus Osteomyelitis - Surgical History Surgical History: Surgical History (Last Reviewed 02/08/18 @ 07:23 by Gladis Escobar) Hx of AKA (above knee amputation) Previous section - Family History Family History: Family History (Last Reviewed 02/01/18 @ 16:20 by Lesley Rutledge) Mother EtOH dependence Father EtOH dependence - Tobacco History Second Hand Smoke Exposure: Yes Tobacco Use In Past 30 Days: Yes Smoking Status: Former smoker Tobacco Type: Cigarettes Packs Per Day: 2 Smoking End Date: 6 months ago - Alcohol History How Often Do You Have a Drink Containing Alcohol: Never - Substance Use History Substance History: No History of Abuse - Immunization History Tetanus Immunization: Unable to Assess Hx Influenza Vaccine This Season: No Medications and Allergies Active Medications: Active Medications Acetaminophen (Tylenol) 650 mg NG/OG ONCE [facility] Last Admin: 01/15/18 16:38 Dose: 650 mg Acetaminophen (Tylenol) 650 mg NG/OG Q4H PRN PRN Reason: FEVER Last Admin: 02/04/18 23:38 Dose: 650 mg Al Hydroxide/Mg Hydroxide (Milk Of Kristen Zamarripa) 30 ml NG/OG Q12H PRN PRN Reason: Mild Constipation Albuterol (Duoneb Neb (Prn)) 1 ampul NEB Q2HR NEB PRN PRN Reason: WHEEZING Last Admin: 01/18/18 04:39 Dose: 1 ampul Bisacodyl (Dulcolax Supp) 10 mg RECTAL DAILY PRN PRN Reason: SEVERE CONSITIPATION Chlorhexidine Gluconate (Peridex 0.12% Oral Kit) 15 ml OROPHARYNG BID@0800, 1999 [facility] Last Admin: 02/08/18 08:28 Dose: Not Given Clonazepam (Klonopin) 0.5 mg NG/OG Q8HR [facility] Last Admin: 02/08/18 05:42 Dose: 0.5 mg Collagenase (Santyl Oint) 1 applicatio TOPICAL DAILY [facility] Last Admin: 02/08/18 08:27 Dose: 1 applicatio Dextrose (D50w Vial) 50 ml IV.PUSH UNSCH PRN PRN Reason: PER HYPOGLYCEMIA PROTOCOL Last Admin: 02/01/18 12:22 Dose: 50 ml Enoxaparin Sodium (Lovenox Inj) 30 mg SQ DAILY@1800 [facility] Last Admin: 02/07/18 17:51 Dose: 30 mg Glucagon (Glucagon Inj) 1 mg OTHER PRN PRN PRN Reason: for Hypoglycemia Protocol Hydralazine HCl (Apresoline) 50 mg NG/OG TID [facility] Last Admin: 02/08/18 08:26 Dose: 50 mg Hydromorphone HCl (Dilaudid Pf Inj) 1 mg IV.PUSH Q4H PRN PRN Reason: BREAKTHROUGH PAIN Hyoscyamine (Levsin) 0.125 mg PO Q4H PRN PRN Reason: secretions Last Admin: 02/07/18 21:50 Dose: 0.125 mg Insulin Detemir (Levemir Inj) 5 unit SQ BID [facility] Last Admin: 02/08/18 12:06 Dose: 5 unit Insulin Human Regular (Novolin R Correctional Sugar Inj) 0 units SQ [facility]; Protocol Last Admin: 02/08/18 08:25 Dose: 5 units L-Arginine/L-Glutamine/Calcium HMB (Alek Packet) 1 packet NG/OG BID [facility] Last Admin: 02/08/18 08:27 Dose: 1 packet Lactic Acid (Lac-Hydrin 12% Lotion) 1 applicatio TOPICAL BID [facility] Last Admin: 02/08/18 08:27 Dose: 1 applicatio Lactulose (Lactulose Liq) 30 ml NG/OG DAILY PRN PRN Reason: SEVERE CONSITIPATION Lansoprazole (Prevacid Solutab) 15 mg NG/OG DAILY [facility] Last Admin: 02/08/18 08:25 Dose: 15 mg Levothyroxine Sodium (Synthroid) 25 mcg PO DAILY@0600 [facility] Last Admin: 02/08/18 05:42 Dose: 25 mcg Lisinopril (Prinivil) 5 mg NG/OG DAILY [facility] Last Admin: 02/01/18 12:06 Dose: Not Given Metoprolol Tartrate (Lopressor) 50 mg NG/OG BID [facility] Last Admin: 02/08/18 08:25 Dose: 50 mg Mirtazapine (Remeron) 15 mg PO HS [facility] Miscellaneous Medication () 1 each OROPHARYNG 0000,0400,1200,1600 [facility] Last Admin: 02/08/18 12:07 Dose: Not Given Naloxone HCl (Narcan Inj) 0.4 mg IV.PUSH UNSCH PRN PRN Reason: SEE LABEL COMMENTS Ondansetron HCl (Zofran Inj) 4 mg IV.PUSH Q6H PRN PRN Reason: NAUSEA OR VOMITING Last Admin: 01/03/18 23:55 Dose: 4 mg Oxycodone/Acetaminophen (Percocet 10/325 Mg) 1 tab PO Q4H PRN PRN Reason: PAIN SCALE 6 TO 10 Last Admin: 02/08/18 07:41 Dose: 1 tab Oxycodone/Acetaminophen (Percocet 5/325 Mg) 1 tab PO Q4H PRN PRN Reason: PAIN SCALE 3 TO 5 Senna/Docusate Sodium (Belinda-Colace) 1 tab NG/OG BID [facility] Last Admin: 02/08/18 08:25 Dose: 1 tab Sennosides (Senokot) 17.2 mg NG/OG Q12H PRN PRN Reason: Moderate Constipation Sodium Chloride (Ns Flush) 2 ml IV.FLUSH BID [facility] Last Admin: 02/08/18 08:27 Dose: 2 ml Sodium Chloride (Ns Flush) 2 ml IV.FLUSH PRN PRN PRN Reason: FLUSH AFTER USING IV ACCESS Last Admin: 02/08/18 01:36 Dose: 2 ml Sterile Water (Free Water) 200 ml G-TUBE Q4HR [facility] Last Admin: 02/08/18 12:07 Dose: 200 ml Allergies Allergy/AdvReac Type Severity Reaction Status Date / Time No Known Allergies Allergy Verified 12/15/17 07:54 Home Medications Medication Instructions Recorded Confirmed Type insulin asp prt-insulin aspart 1 sliding scale dose SUBCUT UD 11/28/17 12/15/17 History [Novolog Mix 70-30 U-100 Insuln] insulin detemir U-100 [Levemir 15 unit SUBCUT QPM 11/28/17 12/15/17 History U-100 Insulin] Exam Vital signs: Vital Signs 02/07/18 12:41 02/07/18 16:00 02/07/18 18:43 Temperature 97.9 F 98.2 F Pulse Rate 88 85 Respiratory Rate 18 Blood Pressure 142/68 H 140/67 Pulse Oximetry 97 100 02/07/18 20:00 02/07/18 23:06 02/08/18 00:00 Temperature 99.6 F 99.3 F Pulse Rate 106 H 97 H Respiratory Rate 16 24 Blood Pressure 166/79 H 121/59 L Pulse Oximetry 100 99 99 02/08/18 04:00 02/08/18 08:00 02/08/18 08:11 Temperature 99.4 F 99.5 F Pulse Rate 89 89 Respiratory Rate 20 14 18 Blood Pressure 124/61 127/61 Pulse Oximetry 97 99 02/08/18 09:43 Temperature Pulse Rate Respiratory Rate Blood Pressure Pulse Oximetry 98 Intake & Output 02/07/18 02/08/18 02/08/18 18:59 06:59 18:59 Intake Total 1289 / 1289 Output Total 600 / 600 200 / 200 1200 / 1200 Balance -600 / -600 1089 / 1089 -1200 / -1200 Intake: Oral 0 / 0 Tube Feeding 689 / 689 Water Bolus Amount 600 / 600 Output: Urine 600 / 600 1200 / 1200 Stool 200 / 200 Other: Mode Setting Left buttock and sacral wounds Continuous Posterior Sacrum Continuous back and L buttock Continuous Date of Last Bowel Movement 02/08/08 02/08/18 Mental Status Examination Appearance: Appropriate Consciousness: Alert Orientation: x4 Motor Activity: Normal gait Speech: Unremarkable Language: Adequate Fund of Knowledge: Adequate Attention and Concentration: Adequate Memory: Unremarkable Mood: Appropriate Affect: Appropriate Thought Process & Associations: Intact Thought Content: Appropriate Hallucination Type: None Delusion Type: None Suicidal Ideation: No Suicidal Plan: No Suicidal Intention: No Homicidal Ideation: No Homicidal Plan: No Homicidal Intention: No Insight: Adequate Judgment: Adequate Assessment and Plan - Assessment (1) Adjustment disorder with depressed mood Code(s): F43.21 - Adjustment disorder with depressed mood Status: Acute - Plan Plan: On my psychiatric evaluation today the patient does not present significant, concerning or acute objective or subjective symptomatology of depression, karsten or psychosis. She does report daytime anxiety and insomnia at night. Also reports episodically feeling overwhelmed and sad due to the length of hospitalization and acute medical problems. But specifically today mood is 7/ 10. Denies suicidal and homicidal ideation, denies visual and auditory hallucinations. Fully oriented x3. An increased clonazepam 2.5 mg 3 times daily. Will start Remeron 15 mg at bedtime to help with insomnia and depression. Support, motivational psychoeducation provided. No admission indicated. Justification for Continued Inpatient Stay: No admission is indicated.
--- NOTE | 2018-02-08 12:37 | P.PNIM ---
Subjective Interval history: Follow up on patient with recurrent sepsis. Patient seen and examined. Patient reports her pain is not well controlled. She says the Morphine does not do anything to help her. She denies any fever or chills. She denies any chest pain or dyspnea. She is asking to be fed by mouth. She is adamant that she has no difficulty with swallowing. She says she only slept one hour last night. DW nursing staff, no adverse events noted overnight. Patients wound vac has been removed and changed to wet/dry dressing changes. Physical Exam Vital signs: Last Vital Signs Temp 98.5 F 02/08/18 12:00 Pulse 90 02/08/18 12:00 Resp 12 02/08/18 12:00 BP 133/60 02/08/18 12:00 Pulse Ox 100 02/08/18 12:00 Intake & Output 02/06/18 02/07/18 02/08/18 02/09/18 06:59 06:59 06:59 06:59 Intake Total 2000 / 2000 1000 / 1000 1289 / 1289 Output Total 1600 / 1600 1500 / 1500 800 / 800 1200 / 1200 Balance 400 / 400 -500 / -500 489 / 489 -1200 / -1200 Weight 70.7 kg Narrative: General: Cachectic middle-aged female patient who appears much older than stated age, INAD. Chronically ill appearing. On T-piece via tracheostomy. Awake and alert. NGT in place. SKIN: Warm and dry. +Scattered ecchymosis/petechia over entire body. HEENT: NC/AT. EOMI. Sclera clear, anicteric. No nasal drainage. Respiratory: Supplemental oxygen through tracheostomy. Mostly clear, occ. rhonchi. Cardiovascular: RRR. +1-2/6 systolic murmur LSB. Abdomen: Soft, no guarding, nondistended, nontender. +BS. Back: Wound vac in place. Musculoskeletal: s/p right BKA. Left foot with extensive eschar and erythema of the second digit. Also noted to have area of eschar on the third digit with surrounding erythema. Additionally, small area of necrosis noted on the outer aspect of the left great toe. left foot is warm. Neurological: Asleep but easily awakens to voice. CN II-XII grossly intact. Following commands. Able to move all extremities spontaneously. No focal deficits. Psychiatric: Calm and cooperative. Urinary Catheter Management Indwelling Urethral Catheter: Cath placed during this visit: yes Urethral indwelling: Yes Reason for continuing: Severe pressure ulcer/wound Insertion date: 01/13/18 Insertion time: 01:00 1: Cath placed during this visit: yes, but has since been removed by the nurse Urethral indwelling: Yes Insertion date: 12/15/17 Removal date: 01/13/18 Removal time: 01:00 Results Labs CBC & Chem 7: 02/06/18 06:43 02/06/18 06:43 Procedures Procedures: lumbar wd debridement with wd vac Assessment and Plan (1) Fasciitis: Code(s): M72.9 - Fibroblastic disorder, unspecified Status: Acute Plan 52 year old female was initially critically ill and in septic shock with necrotizing fasciitis emanating from a deep chronic sacral decubitus ulcer. She has required multiple OR trips for I&D and VAC changes. Family request continued aggressive care. She had a recurrent bout of severe sepsis on 01/14 but after 2 debridements, she has improved. Now on T-piece, hemodynamically stable, however due to the declining NG tube and colostomy, it may be difficult to manage her active wound healing. Initially with encephalopathic, now has resolved. Was weaned off Levophe. Myocardial dysfunction due to sepsis. Resolved Recurrent sepsis, resolved Recent CAUTI, PSAE PNA, PSAE, likely aspiration -BC with no growth x 5 days -Started on Zithromax and Zosyn, now off all antibiotics per ID. -ID following, appreciate assistance -white count improved, 18 -> 6.5 Necrotizing soft tissue infection - General surgery service following back wounds, scheduling debridement and continuation with wound VAC. Plastic, Dr. De La Rosa reviewed patient's case on January 24 and felt she was not a good candidate for skin grafting as a wounds are not ready. He is also recommending a diverting colostomy which the patient is refusing. Complex case as patient is declining some recommended treatments. -pt. bleeding from left hip 01/31, required surgicel and several silver nitrate sticks used for cauterizing. Wound vac reapplied. -continue wound vac, no active bleeding noted. ALTAGRACIA Andrade, no wound care nurse for dressing changes next week due to holiday. Wound vac removed and now on wet/dry dressing changes. -Palliative care is following. Overall poor prognosis. Patient requesting code status be changed back to Full Code. Patient continues to refuse recommended treatments. She waffles on her goals of care. She is complaining we do not feed her and says she can eat without any problems. She doesn't seem to grasp that she continually fails her swallow evaluations. She says her can feed her when she goes home. She continues to refuse PEG placement. She is refusing recommended colostomy and left foot digit amputation. Acute hypoxic and hypercarbic respiratory failure- persistent - s/p Trach in OR 12/28/17. -Tolerating T-piece -02/01 CXR results noted, inc. right lung opacity. Per ID, monitoring off all antibiotics. Diabetes mellitus type II, initially uncontrolled, insulin-dependent Severe hyperglycemia. -BS elevated 269. Resume Levemir at 5u BID. -continue accucheks and ISS coverage -Will continue to monitor BS and adjust insulin regimen as indicated Acute protein calorie malnutrition- severe Severe dysphagia Has refused peg tube placement. 02/07 discussed again importance of adequate nutrition and strongly advised for PEG tube placement but patient continues to refuse. -strict NPO -Dignishield placed to protect wounds from soilage. -Pulled out NGT, initially refused replacement but has since acquiesced. TF resumed. Acute kidney injury resolved -Tristan required for hourly urine output and to protect perineal region. -May ultimately require colostomy to protect this region however patient has declined. -Per previous provider cannot think of a solution to the problem of continuous wound soilage. Refused colostomy. Left upper extremity DVT -12/22 doppler +DVT left internal jugular, subclavian, axillary and distal arm veins. -Cannot anticoagulate secondary to blood loss anemia requiring blood transfusion , frequent surgeries -02/06 repeat Doppler US LUE shows nonocclusive thrombus in the left basilar vein Gangrene left 2nd digit -reevaluated by podiatry, appreciate assistance. Recommended digit amputation but patient refused. Wound care orders placed. Anemia, multifactorial, due to recurrent sepsis, anemia of chronic disease and acute blood loss anemia Hgb as low as 6 s/p transfusion x 1 unit PRBCs 02/01 -Hemoglobin appears stable -No evidence of active bleeding. Continue to monitor -Continue monitor CBC as indicated Situational depression Anxiety Insomnia -Evaluated by psychiatry, appreciate assistance. Clonazepam dose increased and started on Remeron at bedtime -Monitor Pepcid for GI ulcer prophylaxis SCDs/Lovenox for DVT prophylaxis resumed, monitor for bleeding recurrence Progress Note: Quality VTE Deep Vein Thrombosis/Pulmonary Embolism Present on Admission: No
[2018-02-08] MEDS: Enoxaparin Inj 30 MG/0.3 ML Syringe SQ SCH (17:55)
[2018-02-08] MEDS: Mirtazapine 15 MG Tablet PO SCH (21:38)
[2018-02-09] MEDS: HYDROmorphone PF Inj 1 MG/ML Ampul IV.PUSH PRN ×6 (01:26→22:00)
[2018-02-09] MEDS: Oral Hygiene Kit OROPHARYNG SCH ×5 (01:27→23:10)
[2018-02-09] MEDS: oxyCODONE/Acetaminophen 10/325 Tablet PO PRN ×3 (04:18→21:11)
[2018-02-09] MEDS: clonazePAM 0.5 MG Tablet NG/OG SCH ×3 (05:58→21:11)
[2018-02-09] MEDS: Metoprolol Tartrate 50 MG Tablet NG/OG SCH ×2 (09:35→21:11)
[2018-02-09] MEDS: Senna/Docusate Sodium 8.6/50 MG Tablet NG/OG SCH ×2 (09:36→21:11)
[2018-02-09] MEDS: hydrALAZINE 50 MG Tablet NG/OG SCH ×3 (09:36→17:13)
[2018-02-09] MEDS: Lansoprazole ODT 15 MG Tablet NG/OG SCH (09:36)
[2018-02-09] MEDS: Insulin Detemir Inj 1,000 UNIT/10 ML Vial SQ SCH ×2 (09:37→21:13)
[2018-02-09] MEDS: Chlorhexidine 0.12% Oral Kit 15 ML UDC OROPHARYNG SCH ×2 (09:38→21:10)
[2018-02-09] MEDS: Lactic Acid (Ammonium Lactate) 12% Lotion 225 GM Bottle TOPICAL SCH ×2 (09:38→21:10)
[2018-02-09] MEDS: Insulin NovoLIN Regular Correctional Sugar Inj SQ SCH ×4 (09:39→21:14)
[2018-02-09] MEDS: Collagenase Oint 30 GM Tube TOPICAL SCH (09:39)
--- NOTE | 2018-02-09 13:36 | P.PNIM ---
Subjective Interval history: Follow up on patient with recurrent sepsis. Patient seen and examined. Patient reports her pain is better controlled with the Dilaudid but wears off before the next dose is due. She again today ask when can she eat real food. She says she is hungry. Again explained to patient her swallowing dysfunction and the concern for aspiration. Also again discussed PEG tube placement. Patient shakes her head no and closes her eyes in response. DW nursing staff, no adverse events noted overnight. Physical Exam Vital signs: Last Vital Signs Temp 98.9 F 02/09/18 10:55 Pulse 89 02/09/18 10:55 Resp 20 02/09/18 10:55 BP 127/60 02/09/18 10:55 Pulse Ox 99 02/09/18 10:55 Intake & Output 02/07/18 02/08/18 02/09/18 02/10/18 06:59 06:59 06:59 06:59 Intake Total 1000 / 1000 1289 / 1289 Output Total 1500 / 1500 800 / 800 3000 / 3000 Balance -500 / -500 489 / 489 -3000 / -3000 Weight 70.7 kg Narrative: General: Cachectic middle-aged female patient who appears much older than stated age, INAD. Chronically ill appearing. On T-piece via tracheostomy. Awake and alert. NGT in place. SKIN: Warm and dry. +Scattered ecchymosis/petechia over entire body. HEENT: NC/AT. EOMI. Sclera clear, anicteric. No nasal drainage. Respiratory: Supplemental oxygen through tracheostomy. Mostly clear, occ. rhonchi. Cardiovascular: RRR. +1-2/6 systolic murmur LSB. Abdomen: Soft, no guarding, nondistended, nontender. +BS. Back: Wound vac in place. Musculoskeletal: s/p right BKA. Left foot with extensive eschar and erythema of the second digit. Also noted to have area of eschar on the third digit with surrounding erythema. Additionally, small area of necrosis noted on the outer aspect of the left great toe. left foot is warm. Neurological: Asleep but easily awakens to voice. CN II-XII grossly intact. Following commands. Able to move all extremities spontaneously. No focal deficits. Psychiatric: Calm and cooperative. Urinary Catheter Management Indwelling Urethral Catheter: Cath placed during this visit: yes Urethral indwelling: Yes Insertion date: 01/13/18 Insertion time: 01:00 1: Cath placed during this visit: yes, but has since been removed by the nurse Urethral indwelling: Yes Insertion date: 12/15/17 Removal date: 01/13/18 Removal time: 01:00 Results Labs CBC & Chem 7: 02/06/18 06:43 02/06/18 06:43 Procedures Procedures: lumbar wd debridement with wd vac Assessment and Plan (1) Fasciitis: Code(s): M72.9 - Fibroblastic disorder, unspecified Status: Acute (2) Adjustment disorder with depressed mood: Code(s): F43.21 - Adjustment disorder with depressed mood Status: Acute Plan 52 year old female was initially critically ill and in septic shock with necrotizing fasciitis emanating from a deep chronic sacral decubitus ulcer. She has required multiple OR trips for I&D and VAC changes. Family request continued aggressive care. She had a recurrent bout of severe sepsis on 01/14 but after 2 debridements, she has improved. Now on T-piece, hemodynamically stable, however due to the declining NG tube and colostomy, it may be difficult to manage her active wound healing. Initially with encephalopathic, now has resolved. Was weaned off Levophe. Myocardial dysfunction due to sepsis. Resolved Recurrent sepsis, resolved Recent CAUTI, PSAE PNA, PSAE, likely aspiration -BC with no growth x 5 days -Started on Zithromax and Zosyn, now off all antibiotics per ID. -ID following, appreciate assistance -white count improved, 18 -> 6.5 Necrotizing soft tissue infection - General surgery service following back wounds, scheduling debridement and continuation with wound VAC. Plastic, Dr. De La Rosa reviewed patient's case on January 24 and felt she was not a good candidate for skin grafting as a wounds are not ready. He is also recommending a diverting colostomy which the patient is refusing. Complex case as patient is declining some recommended treatments. -pt. bleeding from left hip 01/31, required surgicel and several silver nitrate sticks used for cauterizing. Wound vac reapplied. -continue wound vac, no active bleeding noted. ALTAGRACIA Andrade, no wound care nurse for dressing changes next week due to holiday. Wound vac removed and now on wet/dry dressing changes. -Palliative care is following. Overall poor prognosis. Patient requesting code status be changed back to Full Code. Patient continues to refuse recommended treatments. She waffles on her goals of care. She is complaining we do not feed her and says she can eat without any problems. She doesn't seem to grasp that she continually fails her swallow evaluations. She says her can feed her when she goes home. She continues to refuse PEG placement. She is refusing recommended colostomy and left foot digit amputation. -complaining that pain not adequately controlled on Morphine. Changed to Dilaudid which patient states works better but does not last until next dose. Will increase frequency of dosing to q3h. Monitor for oversedation. Acute hypoxic and hypercarbic respiratory failure- persistent - s/p Trach in OR 12/28/17. -Tolerating T-piece -02/01 CXR results noted, inc. right lung opacity. Per ID, monitoring off all antibiotics. Diabetes mellitus type II, initially uncontrolled, insulin-dependent Severe hyperglycemia. -BS still elevated. Increase Levemir to 10u BID. -continue accucheks and ISS coverage -Will continue to monitor BS and adjust insulin regimen as indicated Acute protein calorie malnutrition- severe Severe dysphagia Has refused peg tube placement. 02/07 discussed again importance of adequate nutrition and strongly advised for PEG tube placement but patient continues to refuse. -strict NPO -Dignishield placed to protect wounds from soilage. -Pulled out NGT, initially refused replacement but has since acquiesced. TF resumed. Acute kidney injury resolved -Tristan required for hourly urine output and to protect perineal region. -May ultimately require colostomy to protect this region however patient has declined. -Per previous provider cannot think of a solution to the problem of continuous wound soilage. Refused colostomy. Left upper extremity DVT -12/22 doppler +DVT left internal jugular, subclavian, axillary and distal arm veins. -Cannot anticoagulate secondary to blood loss anemia requiring blood transfusion , frequent surgeries -02/06 repeat Doppler US LUE shows nonocclusive thrombus in the left basilar vein -continue on Lovenox Gangrene left 2nd digit -reevaluated by podiatry, appreciate assistance. Recommended digit amputation but patient refused. Wound care orders placed. Anemia, multifactorial, due to recurrent sepsis, anemia of chronic disease and acute blood loss anemia Hgb as low as 6 s/p transfusion x 1 unit PRBCs 02/01 -Hemoglobin appears stable -No evidence of active bleeding. Continue to monitor -Continue monitor CBC as indicated - repeat CBC in am Situational depression Anxiety Insomnia -Evaluated by psychiatry, appreciate assistance. Clonazepam dose increased and started on Remeron at bedtime. -Monitor Pepcid for GI ulcer prophylaxis SCDs/Lovenox for DVT prophylaxis resumed, monitor for bleeding recurrence Progress Note: Quality VTE Deep Vein Thrombosis/Pulmonary Embolism Present on Admission: No
[2018-02-09] MEDS: Enoxaparin Inj 30 MG/0.3 ML Syringe SQ SCH (17:13)
[2018-02-09] MEDS: Mirtazapine 15 MG Tablet PO SCH (21:11)
[2018-02-10] MEDS: HYDROmorphone PF Inj 1 MG/ML Ampul IV.PUSH PRN ×5 (01:21→18:04)
[2018-02-10] MEDS: oxyCODONE/Acetaminophen 10/325 Tablet PO PRN ×2 (03:09→21:35)
[2018-02-10] MEDS: Oral Hygiene Kit OROPHARYNG SCH ×3 (03:09→18:00)
[2018-02-10] MEDS: clonazePAM 0.5 MG Tablet NG/OG SCH ×3 (05:30→21:33)
[2018-02-10] MEDS: Insulin NovoLIN Regular Correctional Sugar Inj SQ SCH ×4 (09:24→21:53)
[2018-02-10] MEDS: Metoprolol Tartrate 50 MG Tablet NG/OG SCH ×2 (09:25→21:33)
[2018-02-10] MEDS: Lansoprazole ODT 15 MG Tablet NG/OG SCH (09:25)
[2018-02-10] MEDS: hydrALAZINE 50 MG Tablet NG/OG SCH ×3 (09:25→17:59)
[2018-02-10] MEDS: Lactic Acid (Ammonium Lactate) 12% Lotion 225 GM Bottle TOPICAL SCH ×2 (09:25→21:40)
[2018-02-10] MEDS: Senna/Docusate Sodium 8.6/50 MG Tablet NG/OG SCH ×2 (09:25→21:35)
[2018-02-10] MEDS: Chlorhexidine 0.12% Oral Kit 15 ML UDC OROPHARYNG SCH ×2 (09:26→21:54)
[2018-02-10] MEDS: Insulin Detemir Inj 1,000 UNIT/10 ML Vial SQ SCH ×2 (09:26→21:33)
[2018-02-10] MEDS: Collagenase Oint 30 GM Tube TOPICAL SCH (09:27)
[2018-02-10 09:36] LABS: Baso % (Auto) 0.5 % (0.0-2.0); Eos # (Auto) 0.3 th/mm3 (0.0-0.4); Eos % (Auto) 4.8 % (0.0-4.0); Hematocrit 21.8 % (35.0-46.0); Hemoglobin 7.6 gm/dL (11.6-15.3); Lymph # (Auto) 2.6 th/mm3 (1.0-4.8); Lymph % (Auto) 38.9 % (9.0-44.0); Mean Corpuscular HGB Conc 35.1 % (32.0-36.0); Mean Corpuscular Hemoglobin 33.9 pg (27.0-34.0); Mean Corpuscular Volume 96.7 fL (80.0-100.0); Mean Platelet Volume 9.9 fL (7.0-11.0); Mono # (Auto) 0.7 th/mm3 (0.0-0.9); Neut # (Auto) 3.1 th/mm3 (1.8-7.7); Neut % (Auto) 45.8 % (16.0-70.0); Platelet Count 210 th/mm3 (150-450); Red Blood Count 2.25 mil/mm3 (4.00-5.30); Red Cell Distribution Width 16.5 % (11.6-17.2); White Blood Count 6.8 th/mm3 (4.0-11.0)
[2018-02-10 09:58] LABS: Anion Gap 5 meq/L (5-15); Blood Urea Nitrogen 21 mg/dL (7-18); Calcium 8.1 mg/dL (8.5-10.1); Carbon Dioxide 29.9 meq/L (21.0-32.0); Chloride 100 meq/L (98-107); Glomerular Filtration Rate Greater Than 89 mL/min (>89); Glucose,Random 115 mg/dL (74-106); Magnesium 2.1 mg/dL (1.5-2.5); Potassium 4.7 meq/L (3.5-5.1); Sodium 135 meq/L (136-145)
[2018-02-10 10:00] LABS: Phosphorus 2.9 mg/dL (2.5-4.9)
--- NOTE | 2018-02-10 14:14 | MB ---
cc: Kalani Tamayo MD DATE: 02/10/2018 HISTORY OF PRESENT ILLNESS: The patient is a 52-year-old female with past medical history of hypertension, hepatitis C, diabetes mellitus, who was admitted back on 12/15/2017 for respiratory failure requiring intubation and mechanical ventilation, septic shock and necrotizing fasciitis from a deep chronic sacral decubitus. Her hospital course was complicated by aspiration pneumonia with sputum culture positive for Pseudomonas, urinary tract infection and wound culture positive for Talia tropicalis. She underwent a tracheostomy in the OR on 12/28/2017 and was being followed by General Surgery for necrotizing soft tissue infection. She underwent debridement with wound VAC placement. She was seen by Dr. De La Rosa from plastic surgery and the patient deemed not a good candidate for skin grafting. The patient had a Doppler ultrasound of the left upper extremity on 12/22/2017 which showed a DVT in left internal jugular, subclavian, axillary and distal arm veins. The patient was not a candidate for anticoagulation due to acute blood loss anemia requiring blood transfusions and frequent surgeries. Repeat Doppler ultrasound left upper extremity on 02/06/2018 showed nonocclusive thrombus in the left basilic vein. She had a chest x-ray on 02/01/2018 which showed airspace opacity in the right lung with no focal consolidation. Pulmonary Medicine was consulted for trach management. When seen, she is on T-piece with 28% FiO2. The patient is afebrile. She is being followed by Infectious Disease, Palliative Care and Wound Care Services. PAST MEDICAL HISTORY: Significant for chronic decubitus ulcer, hypertension, diabetes mellitus, hepatitis C. PAST SURGICAL HISTORY: Previous AKA, previous , status post tracheostomy on 01/07/2018. ALLERGIES: NO KNOWN DRUG ALLERGIES. SOCIAL HISTORY: She has history of tobacco use, nondrinker. FAMILY HISTORY: Noncontributing to present illness. CURRENT MEDICATIONS: 1. DuoNeb. 2. Free water. 3. Lovenox. 4. Levemir insulin. 5. Lisinopril. 6. Lopressor. 7. Synthroid. REVIEW OF SYSTEMS: As per HPI. Rest of review of systems is limited. PHYSICAL EXAMINATION: GENERAL: A 52-year-old female lying in bed, in no acute respiratory distress on a T-piece with 28% FiO2. VITAL SIGNS: Afebrile with a temperature of 97.7, pulse of 90, respiratory rate of 20, blood pressure 148/74, saturation 92-99%. HEENT: Atraumatic, normocephalic. Pupils are equal, round and accommodation. Extraocular muscles intact. Conjunctivae pink. Nonicteric sclerae. Oral mucosa within normal. NECK: Supple. No JVD, adenopathy or thyromegaly. Trachea in the midline. Tracheostomy in place. CARDIOVASCULAR: Regular rate and rhythm. Normal S1, S2. No murmurs, rubs or gallops. PULMONARY: Bilateral equal air entry. No rales or wheezing. ABDOMEN: Soft, nontender, nondistended, positive bowel sounds. EXTREMITIES: Status post right BKA. Left foot with extensive eschar and erythema of the second digit and some areas of necrosis noted in the outer aspect of the left great toe. NEUROLOGIC: Easily awakens to voice. Follows simple commands. LABORATORY DATA: Sodium 135, potassium 4.7, chloride 100, CO2 of 29, BUN 21, creatinine 0.6, glucose 128. WBC 6.8, hemoglobin 7.6, hematocrit 21, platelet count 219. RADIOGRAPHIC STUDIES: Chest x-ray from 02/01/2018 showed airspace opacity in the right lung with no focal consolidation. Doppler ultrasound of the left upper extremity showed nonocclusive thrombus, left basilic vein. IMPRESSION: 1. Chronic respiratory failure. 2. Status post tracheostomy on 01/07/2018. 3. Status post Pseudomonas pneumonia in December. 4. Urinary tract infection. 5. Status post necrotizing soft tissue infection of a chronic decubitus wound ulcer. 6. Nonocclusive thrombus, left upper extremity. 7. Anemia. 8. Diabetes mellitus. 9. Gangrene, left second toe. 10. Acute protein calorie malnutrition. RECOMMENDATIONS: 1. Monitor neuro status closely and avoid any sedatives. 2. Continue with oxygen and maintain saturations above 92%. 3. Bronchodilators in the form of DuoNeb every 4 hours plus every 2 hours p.r.n. for shortness of breath. 4. Pulmonary toilet and tracheostomy care. 5. Check chest x-ray. 6. The patient is off antibiotics. Monitor for signs of infection, which include fever and WBC. Infectious Disease is following. 7. Continue glycemic control. 8. Monitor renal function. Electrolyte replacement as needed. 9. General Surgery and Podiatry Services are following. 10. Gastrointestinal and deep venous thrombosis prophylaxis. The patient is on Lovenox 30 mg subcutaneous daily. 11. Continue other treatment plan per primary team. 12. Further recommendations will be based on hospital course. Thank you for this consultation and allowing us to participate in this patient's care. MD LV Daugherty/ana , 10:56 AM , 11:10 AM
--- NOTE | 2018-02-10 14:58 | P.PNIM ---
Subjective Interval history: Upon waking, patient asked for something to help her sleep. She also asked for increase in her pain medication. Follow up on patient with recurrent sepsis. Patient seen and examined. Patient encountered in her room asleep. She easily awakens to voice. She denies any fever or chills. Denies any chest pain or shortness of breath. She denies any nausea, vomiting or abdominal pain. Discussed with nursing staff, no adverse events noted overnight. Physical Exam Vital signs: Last Vital Signs Temp 99.5 F 02/10/18 11:40 Pulse 89 02/10/18 12:14 Resp 16 02/10/18 12:14 BP 157/86 H 02/10/18 11:40 Pulse Ox 100 02/10/18 11:40 Intake & Output 02/08/18 02/09/18 02/10/18 02/11/18 06:59 06:59 06:59 06:59 Intake Total 1289 / 1289 1030 / 1030 Output Total 800 / 800 3000 / 3000 2400 / 2400 Balance 489 / 489 -3000 / -3000 -1370 / -1370 Weight 70.1 kg Narrative: General: Cachectic middle-aged female patient who appears much older than stated age. Chronically ill appearing., on T-piece via tracheostomy. Awake and alert. NGT in place. Not in acute distress. SKIN: Warm and dry. +Scattered ecchymosis/petechia. HEENT: NC/AT. EOMI. Sclera clear, anicteric. No nasal drainage. Respiratory: Supplemental oxygen through tracheostomy. Mostly clear, occ. rhonchi. Cardiovascular: RRR. +1-2/6 systolic murmur LSB. Abdomen: Soft, no guarding, nondistended, nontender. +BS. Back: Wound vac in place. Musculoskeletal: s/p right BKA. Left foot with extensive necrosis and erythema of the second digit. Also noted to have area of necrosis on the third digit with surrounding erythema. Additionally, small area of necrosis noted on the outer aspect of the left great toe. Neurological: Asleep but easily awakens to voice, oriented x 2-3. Following commands. Able to move all extremities spontaneously. No focal deficits. Psychiatric: Calm and cooperative. Urinary Catheter Management Indwelling Urethral Catheter: Cath placed during this visit: yes Urethral indwelling: Yes Insertion date: 01/13/18 Insertion time: 01:00 1: Cath placed during this visit: yes, but has since been removed by the nurse Urethral indwelling: Yes Insertion date: 12/15/17 Removal date: 01/13/18 Removal time: 01:00 Results Labs CBC & Chem 7: 02/10/18 09:05 02/10/18 09:05 Procedures Procedures: lumbar wd debridement with wd vac Assessment and Plan (1) Fasciitis: Code(s): M72.9 - Fibroblastic disorder, unspecified Status: Acute Plan 52 year old female was initially critically ill and in septic shock with necrotizing fasciitis emanating from a deep chronic sacral decubitus ulcer. She has required multiple OR trips for I&D and VAC changes. Family request continued aggressive care. She had a recurrent bout of severe sepsis on 01/14 but after 2 debridements, she has improved. Now on T-piece, hemodynamically stable, however due to the declining NG tube and colostomy, it may be difficult to manage her active wound healing. Initially with encephalopathic, now has resolved. Was weaned off Levophe. Myocardial dysfunction due to sepsis. Resolved Recurrent sepsis, resolved Recent CAUTI, PSAE PNA, PSAE, likely aspiration -BC with no growth x 5 days -Started on Zithromax and Zosyn, now off all antibiotics per ID. -ID following, appreciate assistance -white count improved, 18 -> 6.5 Necrotizing soft tissue infection - General surgery service following back wounds, scheduling debridement and continuation with wound VAC. Plastic, Dr. De La Rosa reviewed patient's case on January 24 and felt she was not a good candidate for skin grafting as a wounds are not ready. He is also recommending a diverting colostomy which the patient is refusing. Complex case as patient is declining some recommended treatments. -pt. bleeding from left hip 01/31, required surgicel and several silver nitrate sticks used for cauterizing. Wound vac reapplied. -continue wound vac, no active bleeding noted. ALTAGRACIA Andrade, no wound care nurse for dressing changes next week due to holiday. Wound vac removed and now on wet/dry dressing changes. -Palliative care is following. Overall poor prognosis. Patient requesting code status be changed back to Full Code. Patient continues to refuse recommended treatments. She waffles on her goals of care. She is complaining we do not feed her and says she can eat without any problems. She doesn't seem to grasp that she continually fails her swallow evaluations. She says her can feed her when she goes home. She continues to refuse PEG placement. She is refusing recommended colostomy and left foot digit amputation. -02/09 complaining that pain not adequately controlled on Morphine. Changed to Dilaudid which patient states works better but does not last until next dose. Will increase frequency of dosing to q3h. Monitor for oversedation. Acute hypoxic and hypercarbic respiratory failure- persistent - s/p Trach in OR 12/28/17. -Tolerating T-piece -02/01 CXR results noted, inc. right lung opacity. Per ID, monitoring off all antibiotics. -Continue duo nebs -Pulmonary following, appreciate assistance. Chest x-ray ordered. Diabetes mellitus type II, initially uncontrolled, insulin-dependent Severe hyperglycemia. - Blood sugars better controlled - Continue on scheduled Levemir 10 units twice daily - continue accucheks and ISS coverage Acute protein calorie malnutrition- severe Severe dysphagia Has refused peg tube placement - strict NPO - Follow prealbumin weekly - Dignishield placed to protect wounds from soilage. - Follow prealbumin weekly. - Pulled out NGT, initially refused replacement but has since acquiesced. TF resumed. Acute kidney injury resolved -Tristan required for hourly urine output and to protect perineal region. -May ultimately require colostomy to protect this region however patient has declined. -Per previous provider cannot think of a solution to the problem of continuous wound soilage. Refused colostomy Left upper extremity DVT -12/22 doppler +DVT left internal jugular, subclavian, axillary and distal arm veins. -Cannot anticoagulate secondary to blood loss anemia requiring blood transfusion , frequent surgeries -02/06 repeat Doppler US LUE shows nonocclusive thrombus in the left basilar vein -continue on Lovenox Gangrene left 2nd digit -reevaluated by podiatry, appreciate assistance. Recommended digit amputation but patient refused. Wound care orders placed. Anemia, multifactorial, due to recurrent sepsis, anemia of chronic disease and episode of acute blood loss from Hgb as low as 6 s/p transfusion x 1 unit PRBCs 02/01 -Hemoglobin appears stable -No evidence of active bleeding. Continue to monitor -Continue monitor CBC as indicated Situational depression Anxiety Insomnia -Evaluated by psychiatry, appreciate assistance. Clonazepam dose increased and started on Remeron at bedtime. -Monitor Pepcid for GI ulcer prophylaxis SCDs/Lovenox for DVT prophylaxis on hold. Progress Note: Quality VTE Deep Vein Thrombosis/Pulmonary Embolism Present on Admission: No
[2018-02-10] MEDS: Enoxaparin Inj 30 MG/0.3 ML Syringe SQ SCH (17:59)
[2018-02-10] MEDS: Mirtazapine 15 MG Tablet PO SCH (21:34)
--- NOTE | 2018-02-10 22:31 | P.PNPOD ---
Subjective Interval history: LLE Dry gangrene, left foot. Physical Exam Vital signs: Vital Signs 02/09/18 23:15 02/10/18 00:00 02/10/18 04:00 Temperature 97.8 F 97.3 F L Pulse Rate 86 86 96 H Respiratory Rate 17 18 Blood Pressure 115/58 L 108/60 Pulse Oximetry 100 99 02/10/18 05:15 02/10/18 07:54 02/10/18 08:40 Temperature 97.7 F Pulse Rate 97 H 90 Respiratory Rate 20 Blood Pressure 148/74 H Pulse Oximetry 99 92 L 02/10/18 09:00 02/10/18 11:40 02/10/18 12:06 Temperature 99.5 F Pulse Rate 90 87 Respiratory Rate 20 18 Blood Pressure 157/86 H Pulse Oximetry 100 02/10/18 12:14 02/10/18 13:00 02/10/18 15:30 Temperature 97.6 F Pulse Rate 89 91 H 91 H Respiratory Rate 16 20 Blood Pressure 141/70 H Pulse Oximetry 96 02/10/18 16:23 02/10/18 17:00 02/10/18 19:27 Temperature Pulse Rate 91 H Respiratory Rate 18 18 Blood Pressure Pulse Oximetry 02/10/18 20:48 Temperature Pulse Rate 96 H Respiratory Rate 18 Blood Pressure Pulse Oximetry 100 Intake & Output 02/10/18 02/10/18 02/11/18 06:59 18:59 06:59 Intake Total 250 / 250 1380 / 1380 Output Total 1300 / 1300 1300 / 1300 Balance -1050 / -1050 80 / 80 Weight 70.1 kg Intake: IV 250 / 250 Tube Feeding 780 / 780 Water Bolus Amount 600 / 600 Output: Urine 200 / 200 650 / 650 Stool 150 / 150 Urine Amount (Catheter) 950 / 950 650 / 650 Indwelling Urethral Catheter 950 / 950 650 / 650 Other: Date of Last Bowel Movement 02/10/18 02/10/18 Narrative: LLE dry stable gangrene to the right 1st, 2nd and 3rd digits, NVS unchanged. Medications and Allergies Active Medications: Active Medications Acetaminophen (Tylenol) 650 mg NG/OG ONCE JOSE R Last Admin: 01/15/18 16:38 Dose: 650 mg Acetaminophen (Tylenol) 650 mg NG/OG Q4H PRN PRN Reason: FEVER Last Admin: 02/04/18 23:38 Dose: 650 mg Al Hydroxide/Mg Hydroxide (Milk Of Kristen Liq) 30 ml NG/OG Q12H PRN PRN Reason: Mild Constipation Albuterol (Duoneb Neb (Prn)) 1 ampul NEB Q2HR NEB PRN PRN Reason: WHEEZING Last Admin: 02/08/18 23:56 Dose: 1 ampul Albuterol (Duoneb Neb (Jose R)) 1 ampul NEB Q4HR NEB [facility] Last Admin: 02/10/18 20:41 Dose: 1 ampul Bisacodyl (Dulcolax Supp) 10 mg RECTAL DAILY PRN PRN Reason: SEVERE CONSITIPATION Chlorhexidine Gluconate (Peridex 0.12% Oral Kit) 15 ml OROPHARYNG BID@0800, 2000 [facility] Last Admin: 02/10/18 21:54 Dose: Not Given Clonazepam (Klonopin) 0.5 mg NG/OG Q8HR [facility] Last Admin: 02/10/18 21:33 Dose: 0.5 mg Collagenase (Santyl Oint) 1 applicatio TOPICAL DAILY [facility] Last Admin: 02/10/18 09:27 Dose: 1 applicatio Dextrose (D50w Vial) 50 ml IV.PUSH UNSCH PRN PRN Reason: PER HYPOGLYCEMIA PROTOCOL Last Admin: 02/01/18 12:22 Dose: 50 ml Enoxaparin Sodium (Lovenox Inj) 30 mg SQ DAILY@1800 [facility] Last Admin: 02/10/18 17:59 Dose: 30 mg Glucagon (Glucagon Inj) 1 mg OTHER PRN PRN PRN Reason: for Hypoglycemia Protocol Hydralazine HCl (Apresoline) 50 mg NG/OG TID [facility] Last Admin: 02/10/18 17:59 Dose: 50 mg Hydromorphone HCl (Dilaudid Pf Inj) 1 mg IV.PUSH Q3HR PRN PRN Reason: BREAKTHROUGH PAIN Last Admin: 02/10/18 18:04 Dose: 1 mg Hyoscyamine (Levsin) 0.125 mg PO Q4H PRN PRN Reason: secretions Last Admin: 02/10/18 03:09 Dose: 0.125 mg Insulin Detemir (Levemir Inj) 10 unit SQ BID [facility] Last Admin: 02/10/18 21:33 Dose: 10 unit Insulin Human Regular (Novolin R Correctional Sugar Inj) 0 units SQ ACHS [facility]; Protocol Last Admin: 02/10/18 21:53 Dose: 1 units L-Arginine/L-Glutamine/Calcium HMB (Alek Packet) 1 packet NG/OG BID [facility] Last Admin: 02/10/18 21:33 Dose: 1 packet Lactic Acid (Lac-Hydrin 12% Lotion) 1 applicatio TOPICAL BID [facility] Last Admin: 02/10/18 09:25 Dose: 1 applicatio Lactulose (Lactulose Liq) 30 ml NG/OG DAILY PRN PRN Reason: SEVERE CONSITIPATION Lansoprazole (Prevacid Solutab) 15 mg NG/OG DAILY [facility] Last Admin: 02/10/18 09:25 Dose: 15 mg Levothyroxine Sodium (Synthroid) 25 mcg PO DAILY@0600 [facility] Last Admin: 02/10/18 05:30 Dose: 25 mcg Lisinopril (Prinivil) 5 mg NG/OG DAILY [facility] Last Admin: 02/01/18 12:06 Dose: Not Given Metoprolol Tartrate (Lopressor) 50 mg NG/OG BID [facility] Last Admin: 02/10/18 21:33 Dose: 50 mg Mirtazapine (Remeron) 15 mg PO HS [facility] Last Admin: 02/10/18 21:34 Dose: 15 mg Miscellaneous Medication () 1 each OROPHARYNG 0000,0400,1200,1600 [facility] Last Admin: 02/10/18 18:00 Dose: 1 each Naloxone HCl (Narcan Inj) 0.4 mg IV.PUSH UNSCH PRN PRN Reason: SEE LABEL COMMENTS Ondansetron HCl (Zofran Inj) 4 mg IV.PUSH Q6H PRN PRN Reason: NAUSEA OR VOMITING Last Admin: 01/03/18 23:55 Dose: 4 mg Oxycodone/Acetaminophen (Percocet 10/325 Mg) 1 tab PO Q4H PRN PRN Reason: PAIN SCALE 6 TO 10 Last Admin: 02/10/18 21:35 Dose: 1 tab Oxycodone/Acetaminophen (Percocet 5/325 Mg) 1 tab PO Q4H PRN PRN Reason: PAIN SCALE 3 TO 5 Senna/Docusate Sodium (Belinda-Colace) 1 tab NG/OG BID [facility] Last Admin: 02/10/18 21:35 Dose: Not Given Sennosides (Senokot) 17.2 mg NG/OG Q12H PRN PRN Reason: Moderate Constipation Sodium Chloride (Ns Flush) 2 ml IV.FLUSH BID JOSE R Last Admin: 02/10/18 21:34 Dose: 2 ml Sodium Chloride (Ns Flush) 2 ml IV.FLUSH PRN PRN PRN Reason: FLUSH AFTER USING IV ACCESS Last Admin: 02/09/18 05:58 Dose: 2 ml Sterile Water (Free Water) 200 ml G-TUBE Q4HR [facility] Last Admin: 02/10/18 21:33 Dose: 200 ml Allergies Allergy/AdvReac Type Severity Reaction Status Date / Time No Known Allergies Allergy Verified 12/15/17 07:54 Home Medications Medication Instructions Recorded Confirmed Type insulin asp prt-insulin aspart 1 sliding scale dose SUBCUT UD 11/28/17 12/15/17 History [Novolog Mix 70-30 U-100 Insuln] insulin detemir U-100 [Levemir 15 unit SUBCUT QPM 11/28/17 12/15/17 History U-100 Insulin] Results - Labs CBC & Chem 7: 02/10/18 09:05 02/10/18 09:05 Laboratory Results - last 24 hr 02/10/18 02/10/18 02/10/18 09:05 09:05 09:23 WBC 6.8 RBC 2.25 L Hgb 7.6 L Hct 21.8 L MCV 96.7 MCH 33.9 MCHC 35.1 RDW 16.5 Plt Count 210 MPV 9.9 Neut % (Auto) 45.8 Lymph % (Auto) 38.9 [place] % (Auto) 10.0 H Eos % (Auto) 4.8 H Baso % (Auto) 0.5 Neut # (Auto) 3.1 Lymph # (Auto) 2.6 [place] # (Auto) 0.7 Eos # (Auto) 0.3 Baso # (Auto) 0.0 WBC Differential . Differential Comment Auto diff final Sodium 135 L Potassium 4.7 Chloride 100 Carbon Dioxide 29.9 Anion Gap 5 BUN 21 H Creatinine 0.61 Estimated GFR Greater than 89 POC Glucose 128 H Random Glucose 115 H Calcium 8.1 L Phosphorus 2.9 Magnesium 2.1 02/10/18 02/10/18 02/10/18 12:29 17:54 21:32 WBC RBC Hgb Hct MCV MCH MCHC RDW Plt Count MPV Neut % (Auto) Lymph % (Auto) [place] % (Auto) Eos % (Auto) Baso % (Auto) Neut # (Auto) Lymph # (Auto) [place] # (Auto) Eos # (Auto) Baso # (Auto) WBC Differential Differential Comment Sodium Potassium Chloride Carbon Dioxide Anion Gap BUN Creatinine Estimated GFR POC Glucose 150 H 135 H 171 H Random Glucose Calcium Phosphorus Magnesium - Procedures lumbar wd debridement with wd vac Assessment and Plan - Assessment (1) Gangrene of toe Code(s): I96 - Gangrene, not elsewhere classified Status: Acute - Plan Continue with daily Betadine dressing Podiatry will f/u weekly
[2018-02-11] MEDS: Oral Hygiene Kit OROPHARYNG SCH ×4 (00:37→17:09)
[2018-02-11] MEDS: HYDROmorphone PF Inj 1 MG/ML Ampul IV.PUSH PRN ×2 (01:18→15:26)
[2018-02-11] MEDS: oxyCODONE/Acetaminophen 10/325 Tablet PO PRN ×3 (04:00→18:08)
--- NOTE | 2018-02-11 06:31 | XR ---
EXAM DATE: 02/11/2018 6:15 AM EST AGE/SEX: 52 years / Female INDICATIONS: Shortness of breath. CLINICAL DATA: This is the patient's subsequent encounter. Patient reports that signs and symptoms h ave been present for 1 month and indicates a pain score of Nonresponsive. MEDICAL/SURGICAL HISTORY: Hypertension. Diabetes mellitus type II. Hepatitis C. GERD, sepsis. . section. COMPARISON: [facility], CHEST 1V SINGLE AP, 02/01/2018. . FINDINGS: Stable tracheostomy. Interval placement of nasoenteric feeding type catheter with tip in the proximal stomach. Persistent diffuse interstitial prominence with improved patchy airspace disease in the rig ht lung. Cardiomediastinal contours are stable. Remainder of the exam is unchanged. CONCLUSION: 1. Stable tracheostomy. Dobbhoff feeding tube in the proximal stomach. 2. Persistent diffuse interstitial prominence with improving patchy airspace disease in the right aniket ng. Electronically signed by: Jefferson Sapp MD Board Certified Radiologist 02/11/2018 6:29 AM TRU[facility] Cuevas
[2018-02-11] MEDS: clonazePAM 0.5 MG Tablet NG/OG SCH ×2 (06:36→13:07)
[2018-02-11] MEDS: Senna/Docusate Sodium 8.6/50 MG Tablet NG/OG SCH ×2 (08:08→22:31)
[2018-02-11] MEDS: Insulin NovoLIN Regular Correctional Sugar Inj SQ SCH ×4 (08:08→22:40)
[2018-02-11] MEDS: Insulin Detemir Inj 1,000 UNIT/10 ML Vial SQ SCH ×2 (08:09→22:40)
[2018-02-11] MEDS: Lansoprazole ODT 15 MG Tablet NG/OG SCH (08:09)
[2018-02-11] MEDS: hydrALAZINE 50 MG Tablet NG/OG SCH ×3 (08:10→18:09)
[2018-02-11] MEDS: Metoprolol Tartrate 50 MG Tablet NG/OG SCH ×2 (08:10→22:31)
[2018-02-11] MEDS: Collagenase Oint 30 GM Tube TOPICAL SCH (08:12)
[2018-02-11] MEDS: Lactic Acid (Ammonium Lactate) 12% Lotion 225 GM Bottle TOPICAL SCH ×2 (08:21→22:30)
--- NOTE | 2018-02-11 08:40 | P.PNIM ---
Subjective Interval history: Very pleasant patient seen in follow-up this morning. Patient denies any fever or chills overnight. Patient reports that her pain is still present currently 8/out of 10. Patient recently with increased dose of Dilaudid. Chest x-ray reviewed this morning and improved aeration. Recommendation by podiatry also reviewed continue dressing. No other acute issues overnight as per nursing Physical Exam Vital signs: Last Vital Signs Temp 97.1 F L 02/11/18 08:00 Pulse 88 02/11/18 05:25 Resp 20 02/11/18 08:00 BP 107/63 02/11/18 08:00 Pulse Ox 93 L 02/11/18 08:00 Intake & Output 02/09/18 02/10/18 02/11/18 02/12/18 06:59 06:59 06:59 06:59 Intake Total 1030 / 1030 1380 / 1380 Output Total 3000 / 3000 2400 / 2400 2300 / 2300 Balance -3000 / -3000 -1370 / -1370 -920 / -920 Weight 70.1 kg 71.2 kg Narrative: General: Cachectic middle-aged female Currently on T-piece via tracheostomy. Awake and alert. NGT in place. Not in acute distress. SKIN: Warm and dry. +Scattered ecchymosis/petechia. HEENT: NC/AT. EOMI. Sclera clear, anicteric. No nasal drainage. Respiratory: Supplemental oxygen through tracheostomy. Clear anteriorly. Scattered rhonchi lower lung almanza Cardiovascular: RRR. +1-2/6 systolic murmur LSB. Abdomen: Soft, no guarding, nondistended, nontender. +BS. Back: Wound vac in place. Musculoskeletal: s/p right BKA. Left foot with extensive necrosis and erythema. area of necrosis on the third digit with surrounding erythema. Neurological:Awake and alert and oriented x3. Following commands. Able to move all extremities spontaneously. No focal deficits. Urinary Catheter Management Indwelling Urethral Catheter: Cath placed during this visit: yes Urethral indwelling: Yes Reason for continuing: Severe pressure ulcer/wound Insertion date: 01/13/18 Insertion time: 01:00 1: Cath placed during this visit: yes, but has since been removed by the nurse Urethral indwelling: Yes Insertion date: 12/15/17 Removal date: 01/13/18 Removal time: 01:00 Results Labs CBC & Chem 7: 02/10/18 09:05 02/10/18 09:05 Imaging Imaging: Impressions Chest X-Ray 02/11/18 00:00 CONCLUSION: 1. Stable tracheostomy. Dobbhoff feeding tube in the proximal stomach. 2. Persistent diffuse interstitial prominence with improving patchy airspace disease in the right lung. Procedures Procedures: lumbar wd debridement with wd vac Assessment and Plan (1) Fasciitis: Code(s): M72.9 - Fibroblastic disorder, unspecified Status: Acute Plan Patient is a 52 year old female who presented to ED for septic shock with necrotizing fasciitis emanating from a deep chronic sacral decubitus ulcer. She has required multiple OR trips for I&D and VAC changes. Patient with recurrent bouts of severe sepsis on 01/14 but after 2 debridements, has improved. Now on T-piece, hemodynamically stable, however due to the declining NG tube and colostomy, it may be difficult to manage her active wound healing. Initially with encephalopathic, now has resolved. Was weaned off Levophed. Recurrent sepsis, resolved Recent CAUTI, PSAE PNA, PSAE, likely aspiration -BC with no growth x 5 days -Started on Zithromax and Zosyn, now off all antibiotics per ID. -ID following, appreciate assistance -white count improved with treatment Necrotizing soft tissue infection - General surgery service following back wounds, scheduling debridement and continuation with wound VAC. Plastic, Dr. De La Rosa reviewed patient's case on January 24 and felt she was not a good candidate for skin grafting as a wounds are not ready. He is also recommending a diverting colostomy which the patient is refusing. Complex case as patient is declining some recommended treatments. -pt. bleeding from left hip 01/31, required surgicel and several silver nitrate sticks used for cauterizing. Wound vac reapplied. -continue wound vac, no active bleeding noted. ALTAGRACIA Andrade, no wound care nurse for dressing changes next week due to holiday. Wound vac removed and now on wet/dry dressing changes. -Palliative care is following. Overall poor prognosis. Patient requesting code status be changed back to Full Code. Patient continues to refuse recommended treatments. She waffles on her goals of care. She is complaining we do not feed her and says she can eat without any problems. She doesn't seem to grasp that she continually fails her swallow evaluations. She says her can feed her when she goes home. She continues to refuse PEG placement . She is refusing recommended colostomy and left foot digit amputation. -02/09 complaining that pain not adequately controlled on Morphine. Changed to Dilaudid which patient states works better but does not last until next dose. Will increase frequency of dosing to q3h. Monitor for oversedation. Acute hypoxic and hypercarbic respiratory failure- persistent - s/p Trach in OR 12/28/17. -Tolerating T-piece -Continue duo nebs -Pulmonary following, appreciate assistance. - CXR on 02/11 reviewed. appears improved Diabetes mellitus type II, initially uncontrolled, insulin-dependent Severe hyperglycemia. - continue on scheduled Levemir 10 units twice daily - continue accucheks and ISS coverage Acute protein calorie malnutrition- severe Severe dysphagia Has refused peg tube placement - strict NPO - Follow prealbumin weekly - Dignishield placed to protect wounds from soilage. - Follow prealbumin weekly. - Pulled out NGT, initially refused replacement but has since acquiesced. TF resumed. Acute kidney injury resolved -Tristan required for hourly urine output and to protect perineal region. -May ultimately require colostomy to protect this region however patient has declined. -Per previous provider cannot think of a solution to the problem of continuous wound soilage. Refused colostomy Left upper extremity DVT -12/22 doppler +DVT left internal jugular, subclavian, axillary and distal arm veins. -Cannot anticoagulate secondary to blood loss anemia requiring blood transfusion , frequent surgeries -02/06 repeat Doppler US LUE shows nonocclusive thrombus in the left basilar vein -continue on Lovenox Gangrene left 2nd digit -reevaluated by podiatry, appreciate assistance. Recommended digit amputation but patient refused. Wound care orders placed. Anemia, multifactorial, due to recurrent sepsis, anemia of chronic disease and episode of acute blood loss from Hgb as low as 6 s/p transfusion x 1 unit PRBCs 02/01 -Hemoglobin appears stable -No evidence of active bleeding. Continue to monitor -Continue monitor CBC as indicated Situational depression Anxiety Insomnia -Evaluated by psychiatry, appreciate assistance. Clonazepam dose increased and started on Remeron at bedtime. -Monitor Pepcid for GI ulcer prophylaxis SCDs/Lovenox for DVT prophylaxis code: GOGO Diet: glucerna Progress Note: Quality VTE Deep Vein Thrombosis/Pulmonary Embolism Present on Admission: No
--- NOTE | 2018-02-11 08:43 | P.PNPL ---
Subjective Interval history: Patient is awake and alert on TP's with 28% FIO2. Afebrile. Physical Exam Vital signs: Vital Signs 02/10/18 08:40 02/10/18 09:00 02/10/18 11:40 Temperature 97.7 F 99.5 F Pulse Rate 90 90 87 Respiratory Rate 20 20 Blood Pressure 148/74 H 157/86 H Pulse Oximetry 92 L 100 02/10/18 12:06 02/10/18 12:14 02/10/18 13:00 Temperature Pulse Rate 89 91 H Respiratory Rate 18 16 Blood Pressure Pulse Oximetry 02/10/18 15:30 02/10/18 16:23 02/10/18 17:00 Temperature 97.6 F Pulse Rate 91 H 91 H Respiratory Rate 20 18 Blood Pressure 141/70 H Pulse Oximetry 96 02/10/18 19:00 02/10/18 19:27 02/10/18 20:48 Temperature 98.9 F Pulse Rate 100 H 96 H Respiratory Rate 19 18 18 Blood Pressure 117/58 L Pulse Oximetry 100 100 02/10/18 21:00 02/10/18 23:00 02/11/18 01:00 Temperature 98.5 F Pulse Rate 112 H 95 H 89 Respiratory Rate 18 Blood Pressure 113/87 Pulse Oximetry 98 02/11/18 01:32 02/11/18 03:05 02/11/18 04:00 Temperature 98 F Pulse Rate 90 84 94 H Respiratory Rate 18 18 Blood Pressure 142/61 H Pulse Oximetry 98 02/11/18 05:25 02/11/18 06:00 02/11/18 08:00 Temperature 97.1 F L Pulse Rate 88 Respiratory Rate 17 16 20 Blood Pressure 107/63 Pulse Oximetry 93 L Intake & Output 02/10/18 02/11/18 02/11/18 18:59 06:59 18:59 Intake Total 1380 / 1380 0 / 0 Output Total 1300 / 1300 1000 / 1000 Balance 80 / 80 -1000 / -1000 Weight 71.2 kg Intake: Oral 0 / 0 Tube Feeding 780 / 780 Water Bolus Amount 600 / 600 Output: Urine 650 / 650 1000 / 1000 Urine Amount (Catheter) 650 / 650 Indwelling Urethral Catheter 650 / 650 Other: Date of Last Bowel Movement 02/10/18 02/10/18 - Constitutional no acute distress - Routine HEENT Exam Head: Present: normocephalic, atraumatic Eye: Present: EOMI, PERRL, normal accommodation, conjunctivae pink - Routine Neck Exam Present: supple, full ROM, trachea midline - Routine Respiratory Exam Present: CTA bilaterally - Routine Cardiovascular Exam Present: RRR, S1, S2 - Routine Abdominal Exam Present: soft, normoactive bowel sounds - Routine Extremities Exam Present: pulses intact - Routine Neurological Exam Present: alert, oriented X3 - Urinary Catheter Management Indwelling Urethral Catheter Cath placed during this visit: yes Urethral indwelling: Yes Reason for continuing: Severe pressure ulcer/wound Insertion date: 01/13/18 Insertion time: 01:00 1 Cath placed during this visit: yes, but has since been removed by the nurse Urethral indwelling: Yes Reason for continuing: Severe pressure ulcer/wound Insertion date: 12/15/17 Removal date: 01/13/18 Removal time: 01:00 Assessment and Plan - Assessment (1) Septic shock with acute organ dysfunction due to anaerobic bacteria Code(s): A41.4 - Sepsis due to anaerobes; R65.21 - Severe sepsis with septic shock Status: Acute (2) Acute respiratory failure Code(s): J96.00 - Acute respiratory failure, unspecified whether with hypoxia or hypercapnia Status: Acute (3) Necrotizing fasciitis Code(s): M72.6 - Necrotizing fasciitis Status: Acute (4) Type 2 diabetes mellitus with hyperosmolar nonketotic hyperglycemia Code(s): E11.01 - Type 2 diabetes mellitus with hyperosmolarity with coma Status: Acute (5) MARIO (acute kidney injury) Code(s): N17.9 - Acute kidney failure, unspecified Status: Acute (6) Lactic acidosis Code(s): E87.2 - Acidosis Status: Acute - Plan 1. Chronic respiratory failure. 2. Status post tracheostomy on 01/07/2018. 3. Status post Pseudomonas pneumonia in December. 4. Urinary tract infection. 5. Status post necrotizing soft tissue infection of a chronic decubitus wound ulcer. 6. Nonocclusive thrombus, left upper extremity. 7. Anemia. 8. Diabetes mellitus. 9. Gangrene, left second toe. 10. Acute protein calorie malnutrition. Plan Monitor neuro status closely and avoid any sedatives. Continue with TP's and maintain sats> 92%. Bronchodilators Pulmonary toilet and tracheostomy care. CXR today-. Persistent diffuse interstitial prominence with improving patchy airspace disease in the right lung. off antibiotics. Monitor for signs of infection(fever and WBC). ID is following. Monitor renal function. Electrolyte replacement as needed. General Surgery and Podiatry Services are following. Nutrition support- on tube feeds Glucerna 1.5@50ml/hr GI and deep venous thrombosis prophylaxis. on Lovenox 30 mg subc daily.
[2018-02-11] MEDS: Chlorhexidine 0.12% Oral Kit 15 ML UDC OROPHARYNG SCH ×2 (11:27→21:36)
--- NOTE | 2018-02-11 15:10 | P.DIET ---
Nutritional Evaluation Type of nutrition evaluation: follow-up Nutrition consult regarding: Tube Feeding Subjective Subjective Comments: Declining PEG. 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%) % IBW: 122 (IBW = 123-lb (adjusted for amp)) Body Weight Used for Calculations: Actual (64.9 kg) Energy Needs - Lower Range (kCal/kg): 30 Energy Needs - Upper Range (kCal/kg): 35 Lower Limit kCal/kg (kCals): 1,947 Upper Limit kCal/kg (kCals): 2,272 Lower Limit Protein Factor (Grams per Kg): 1.2 Upper Limit Protein Factor (Grams per Kg): 1.6 Lower Protein Needs (Protein): 78 Upper Protein Needs (Protein): 104 Dietitian Reviewed in Medical Record: Curent medications, Intake & Output, Labs , Medical history, Tube feeding, Wound/DTI Diet Order: NPO Wound Care Note: see last WOCN 02/07: Recommend removing Veraflow VAC at this time, patient complains of severe pain, uncontrolled with pain medication. Objective Comments: PMH includes: Hep C, DM, PAD, HTN, Osteomyelitis, R AKA, GERD, gastroparesis, PVD, peripheral neuropathy Decubitus Ulcer; here w/Stage IV sacral decubitus s/p debridement of Necrotizing tissue Fasciitis Feeding - Current Tube Feeding Tube Feeding Product: Glucerna 1.5 Tube Feeding Method: Pump Tube Feeding Rate: 60 Assessment Assessment: noted, Patient is awake and alert on TP's with 28% FIO2. Afebrile. Pts. wt. has increased, monitor. Pt. Receiving Glucerna 1.5 @ 60 ml/hr and Alek 1-pkt BID to aid in wound healing. Recommend decreasing TFing of Glucerna 1.5 to goal rate of 55mls/hr. Continue Alek 1 pkt BID. Monitor TFing tolerance, current wt. and labs. Recommendations: 1. Recommend decreasing TFing of Glucerna 1.5 to goal rate of 55mls/hr. 2. Monitor TFing tolerance, current wt. and labs. 3. Continue Alek 1 pack bid Dietitian to Monitor: Lab values, Glucose level, Intake & Output, Tube feeding tolerance, Weight change, Wound/skin status, Medical course
[2018-02-11] MEDS: Enoxaparin Inj 30 MG/0.3 ML Syringe SQ SCH (18:09)
[2018-02-11] MEDS: Mirtazapine 15 MG Tablet PO SCH (22:31)
[2018-02-12] MEDS: clonazePAM 0.5 MG Tablet NG/OG SCH ×4 (00:34→21:08)
[2018-02-12] MEDS: Oral Hygiene Kit OROPHARYNG SCH ×4 (00:35→15:23)
--- NOTE | 2018-02-12 00:52 | XR ---
EXAM DATE: 02/12/2018 12:43 AM EST AGE/SEX: 52 years / Female INDICATIONS: Dobhoff tube placement. CLINICAL DATA: This is the patient's subsequent encounter. Patient reports that signs and symptoms h ave been present for 1 month and indicates a pain score of 0/10. MEDICAL/SURGICAL HISTORY: Hypertension. Diabetes mellitus type II. Hepatitis C. GERD. Sepsis . section. [place] [facility] [place] [facility]. . FINDINGS: Feeding type Dobbhoff tube with tip in the fundus of the stomach. No dilated loops of bowel. No gross free air or pneumatosis. Mild airspace disease in the left lower lung zone. Tracheostomy in place. R emainder of the exam is unchanged. CONCLUSION: 1. Dobbhoff tube in the fundus of the stomach. Electronically signed by: Jefferson Sapp MD Board Certified Radiologist 02/12/2018 12:[address]
[2018-02-12] MEDS: oxyCODONE/Acetaminophen 10/325 Tablet PO PRN ×4 (01:31→22:59)
[2018-02-12] MEDS: HYDROmorphone PF Inj 1 MG/ML Ampul IV.PUSH PRN ×4 (02:42→21:05)
[2018-02-12 07:48] LABS: Hematocrit 22.7 % (35.0-46.0); Hemoglobin 7.9 gm/dL (11.6-15.3); Mean Corpuscular HGB Conc 34.9 % (32.0-36.0); Mean Corpuscular Hemoglobin 33.3 pg (27.0-34.0); Mean Corpuscular Volume 95.4 fL (80.0-100.0); Mean Platelet Volume 10.4 fL (7.0-11.0); Platelet Count 254 th/mm3 (150-450); Red Blood Count 2.38 mil/mm3 (4.00-5.30); Red Cell Distribution Width 15.6 % (11.6-17.2); White Blood Count 9.9 th/mm3 (4.0-11.0)
[2018-02-12 08:06] LABS: Anion Gap 5 meq/L (5-15); Blood Urea Nitrogen 21 mg/dL (7-18); Calcium 8.4 mg/dL (8.5-10.1); Carbon Dioxide 30.8 meq/L (21.0-32.0); Chloride 98 meq/L (98-107); Glomerular Filtration Rate Greater Than 89 mL/min (>89); Glucose,Random 145 mg/dL (74-106); Potassium 4.3 meq/L (3.5-5.1); Sodium 134 meq/L (136-145)
[2018-02-12] MEDS: Senna/Docusate Sodium 8.6/50 MG Tablet NG/OG SCH ×2 (08:59→21:08)
[2018-02-12] MEDS: hydrALAZINE 50 MG Tablet NG/OG SCH ×3 (08:59→18:00)
[2018-02-12] MEDS: Chlorhexidine 0.12% Oral Kit 15 ML UDC OROPHARYNG SCH ×2 (08:59→21:28)
[2018-02-12] MEDS: Lansoprazole ODT 15 MG Tablet NG/OG SCH (09:00)
--- NOTE | 2018-02-12 09:00 | P.PNPL ---
Subjective Interval history: Patient is lying in bed in NAD. Awake and alert. Remains on TP's with 28% FIO2. Afebrile. Physical Exam Vital signs: Vital Signs 02/11/18 09:37 02/11/18 12:00 02/11/18 12:23 Temperature 96.6 F L Pulse Rate 83 97 H 97 H Respiratory Rate 16 17 20 Blood Pressure 117/58 L 124/59 L Pulse Oximetry 100 02/11/18 12:58 02/11/18 15:11 02/11/18 16:00 Temperature 96.8 F L Pulse Rate 84 100 H 97 H Respiratory Rate 16 17 Blood Pressure 129/69 Pulse Oximetry 100 02/11/18 17:21 02/11/18 18:00 02/11/18 18:03 Temperature Pulse Rate 108 H 105 H Respiratory Rate 20 18 20 Blood Pressure 125/67 Pulse Oximetry 02/11/18 20:00 02/11/18 22:08 02/11/18 23:26 Temperature 97.1 F L 97.2 F L Pulse Rate 106 H 104 H 118 H Respiratory Rate 18 18 18 Blood Pressure 102/54 L 129/77 Pulse Oximetry 94 L 95 97 02/11/18 23:56 02/12/18 00:00 02/12/18 01:20 Temperature 100.6 F H Pulse Rate 100 H 120 H 137 H Respiratory Rate 18 20 Blood Pressure 133/60 Pulse Oximetry 96 02/12/18 02:30 02/12/18 02:48 02/12/18 04:00 Temperature 98.6 F 96.6 F L Pulse Rate 115 H 104 H Respiratory Rate 24 17 Blood Pressure 105/55 L Pulse Oximetry 99 02/12/18 04:36 02/12/18 06:37 02/12/18 08:00 Temperature 98.5 F Pulse Rate 92 H Respiratory Rate 20 19 12 Blood Pressure 108/56 L Pulse Oximetry 100 02/12/18 08:39 Temperature Pulse Rate 92 H Respiratory Rate 14 Blood Pressure Pulse Oximetry 100 Intake & Output 02/11/18 02/12/18 02/12/18 18:59 06:59 18:59 Output Total 650 / 650 1750 / 1750 Balance -650 / -650 -1750 / -1750 Weight 70 kg Output: Urine Amount (Catheter) 650 / 650 1750 / 1750 Indwelling Urethral Catheter 650 / 650 1750 / 1750 Other: Date of Last Bowel Movement 02/11/18 - Constitutional no acute distress - Routine HEENT Exam Head: Present: normocephalic, atraumatic Eye: Present: EOMI, PERRL, normal accommodation, conjunctivae pink ENT: Present: mucous membranes moist - Routine Neck Exam Present: supple, full ROM, trachea midline - Routine Respiratory Exam Present: CTA bilaterally - Routine Cardiovascular Exam Present: RRR, S1, S2 - Routine Abdominal Exam Present: soft, normoactive bowel sounds - Routine Skin Exam Present: intact, dry - Routine Neurological Exam Present: alert, oriented X3, CN II-XII intact - Urinary Catheter Management Indwelling Urethral Catheter Cath placed during this visit: yes Urethral indwelling: Yes Reason for continuing: Severe pressure ulcer/wound Insertion date: 01/13/18 Insertion time: 01:00 1 Cath placed during this visit: yes, but has since been removed by the nurse Urethral indwelling: Yes Reason for continuing: Severe pressure ulcer/wound Insertion date: 12/15/17 Removal date: 01/13/18 Removal time: 01:00 Assessment and Plan - Assessment (1) Septic shock with acute organ dysfunction due to anaerobic bacteria Code(s): A41.4 - Sepsis due to anaerobes; R65.21 - Severe sepsis with septic shock Status: Acute (2) Acute respiratory failure Code(s): J96.00 - Acute respiratory failure, unspecified whether with hypoxia or hypercapnia Status: Acute (3) Necrotizing fasciitis Code(s): M72.6 - Necrotizing fasciitis Status: Acute (4) Type 2 diabetes mellitus with hyperosmolar nonketotic hyperglycemia Code(s): E11.01 - Type 2 diabetes mellitus with hyperosmolarity with coma Status: Acute (5) MARIO (acute kidney injury) Code(s): N17.9 - Acute kidney failure, unspecified Status: Acute (6) Lactic acidosis Code(s): E87.2 - Acidosis Status: Acute - Plan 1. Chronic respiratory failure. 2. Status post tracheostomy on 01/07/2018. 3. Status post Pseudomonas pneumonia in December. 4. Urinary tract infection. 5. Status post necrotizing soft tissue infection of a chronic decubitus wound ulcer. 6. Nonocclusive thrombus, left upper extremity. 7. Anemia. 8. Diabetes mellitus. 9. Gangrene, left second toe. 10. Acute protein calorie malnutrition. Plan Monitor neuro status closely and avoid any sedatives. Continue with TP's and maintain sats> 92%. Bronchodilators Pulmonary toilet and trach care. CXR 02/11-. Persistent diffuse interstitial prominence with improving patchy airspace disease in the right lung. off antibiotics. Monitor for signs of infection(fever and WBC). ID is following. Monitor renal function. Electrolyte replacement as needed. General Surgery and Podiatry Services are following. Nutrition support- on tube feeds Glucerna 1.5@50ml/hr GI and deep venous thrombosis prophylaxis. on Lovenox 30 mg subc daily. Continue treatment plan
[2018-02-12] MEDS: Collagenase Oint 30 GM Tube TOPICAL SCH (09:01)
[2018-02-12] MEDS: Metoprolol Tartrate 50 MG Tablet NG/OG SCH ×2 (09:02→21:08)
[2018-02-12] MEDS: Lactic Acid (Ammonium Lactate) 12% Lotion 225 GM Bottle TOPICAL SCH ×2 (09:02→21:29)
--- NOTE | 2018-02-12 10:43 | P.PNIM ---
Subjective Interval history: The patient was communicating by writing with a pen on paper. She stated that she was ready to go home. She said that she wants to eat and drink something. She says she did not have any breathing problems or trouble eating prior to coming to the hospital. She says her pain is not well controlled at this time. No other acute complaints. Discussed with nursing. Physical Exam Vital signs: Vital Signs 02/11/18 12:00 02/11/18 12:23 02/11/18 12:58 Temperature 96.6 F L Pulse Rate 97 H 97 H 84 Respiratory Rate 17 20 16 Blood Pressure 117/58 L 124/59 L Pulse Oximetry 100 02/11/18 15:11 02/11/18 16:00 02/11/18 17:21 Temperature 96.8 F L Pulse Rate 100 H 97 H 108 H Respiratory Rate 17 20 Blood Pressure 129/69 Pulse Oximetry 100 02/11/18 18:00 02/11/18 18:03 02/11/18 20:00 Temperature 97.1 F L Pulse Rate 105 H 106 H Respiratory Rate 18 20 18 Blood Pressure 125/67 102/54 L Pulse Oximetry 94 L 02/11/18 22:08 02/11/18 23:26 02/11/18 23:56 Temperature 97.2 F L Pulse Rate 104 H 118 H 100 H Respiratory Rate 18 18 18 Blood Pressure 129/77 Pulse Oximetry 95 97 02/12/18 00:00 02/12/18 01:20 02/12/18 02:30 Temperature 100.6 F H 98.6 F Pulse Rate 120 H 137 H Respiratory Rate 20 Blood Pressure 133/60 Pulse Oximetry 96 02/12/18 02:48 02/12/18 04:00 02/12/18 04:36 Temperature 96.6 F L Pulse Rate 115 H 104 H Respiratory Rate 24 17 20 Blood Pressure 105/55 L Pulse Oximetry 99 02/12/18 06:37 02/12/18 08:00 02/12/18 08:39 Temperature 98.5 F Pulse Rate 92 H 92 H Respiratory Rate 19 12 14 Blood Pressure 108/56 L Pulse Oximetry 100 100 Intake & Output 02/11/18 02/12/18 02/12/18 18:59 06:59 18:59 Output Total 650 / 650 1750 / 1750 Balance -650 / -650 -1750 / -1750 Weight 70 kg Output: Urine Amount (Catheter) 650 / 650 1750 / 1750 Indwelling Urethral Catheter 650 / 650 175 / 175 Other: Date of Last Bowel Movement 02/11/18 Narrative: General: Cachectic female, not in acute distress. SKIN: Warm and dry. +Scattered ecchymosis/petechia. HEENT: NC/AT. EOMI. Sclera clear, anicteric. No nasal drainage. Respiratory: Supplemental oxygen through tracheostomy. Scattered rhonchi lower lung almanza. Cardiovascular: RRR. +1-2/6 systolic murmur LSB. Abdomen: Soft, no guarding, nondistended, nontender. +BS. Musculoskeletal: s/p right BKA. Left foot with extensive necrosis and erythema. Area of necrosis on the third digit with surrounding erythema. Neurological:Awake and alert and oriented x3. Following commands. Able to move all extremities spontaneously. No focal deficits. - Urinary Catheter Management Indwelling Urethral Catheter Cath placed during this visit: yes Urethral indwelling: Yes Reason for continuing: Severe pressure ulcer/wound Insertion date: 01/13/18 Insertion time: 01:00 1 Cath placed during this visit: yes, but has since been removed by the nurse Urethral indwelling: Yes Reason for continuing: Severe pressure ulcer/wound Insertion date: 12/15/17 Removal date: 01/13/18 Removal time: 01:00 Results - Labs CBC & Chem 7: 02/12/18 06:56 02/12/18 06:56 Laboratory Results - last 24 hr 02/11/18 02/11/18 02/12/18 12:37 16:48 01:16 WBC RBC Hgb Hct MCV MCH MCHC RDW Plt Count MPV Sodium Potassium Chloride Carbon Dioxide Anion Gap BUN Creatinine Estimated GFR POC Glucose 176 H 165 H 212 H Random Glucose Calcium 02/12/18 02/12/18 02/12/18 06:56 06:56 08:00 WBC 9.9 RBC 2.38 L Hgb 7.9 L Hct 22.7 L MCV 95.4 MCH 33.3 MCHC 34.9 RDW 15.6 Plt Count 254 MPV 10.4 Sodium 134 L Potassium 4.3 Chloride 98 Carbon Dioxide 30.8 Anion Gap 5 BUN 21 H Creatinine 0.64 Estimated GFR Greater than 89 POC Glucose 180 H Random Glucose 145 H Calcium 8.4 L - Imaging Impressions Abdomen X-Ray 02/12/18 00:00 CONCLUSION: 1. Dobbhoff tube in the fundus of the stomach. - Procedures lumbar wd debridement with wd vac Assessment and Plan - Assessment (1) Fasciitis Code(s): M72.9 - Fibroblastic disorder, unspecified Status: Acute - Plan Patient is a 52 year old female who presented to ED for septic shock with necrotizing fasciitis emanating from a deep chronic sacral decubitus ulcer. She has required multiple OR trips for I&D and VAC changes. Patient with recurrent bouts of severe sepsis on 01/14 but after 2 debridements, has improved. Now on T-piece, hemodynamically stable. Initially with encephalopathic, now has resolved. Was weaned off Levophed. Recurrent sepsis, resolved Recent CAUTI, PSAE PNA, PSAE, likely aspiration -BC with no growth x 5 days -Started on Zithromax and Zosyn, now off all antibiotics per ID. -ID following, appreciate assistance -white count improved with treatment Necrotizing soft tissue infection - General surgery service following back wounds, scheduling debridement and continuation with wound VAC. Plastic, Dr. De La Rosa reviewed patient's case on January 24 and felt she was not a good candidate for skin grafting as a wounds are not ready. He is also recommending a diverting colostomy which the patient is refusing. Complex case as patient is declining some recommended treatments. -pt. bleeding from left hip 01/31, required surgicel and several silver nitrate sticks used for cauterizing. Wound vac reapplied. -continue wound vac, no active bleeding noted. ATLAGRACIA Andrade, no wound care nurse for dressing changes next week due to holiday. Wound vac removed and now on wet/dry dressing changes. -Palliative care is following. Overall poor prognosis. Patient requesting code status be changed back to Full Code. Patient continues to refuse recommended treatments. She waffles on her goals of care. She is complaining we do not feed her and says she can eat without any problems. She doesn't seem to grasp that she continually fails her swallow evaluations. She says her can feed her when she goes home. She continues to refuse PEG placement. She is refusing recommended colostomy and left foot digit amputation. -pain control with oxycodone and Dilaudid for breakthrough. Acute hypoxic and hypercarbic respiratory failure- persistent - s/p Trach in OR 12/28/17. -Tolerating T-piece -Continue duo nebs -Pulmonary following, appreciate assistance. - CXR on 02/11 reviewed. Appears improved. Diabetes mellitus type II, initially uncontrolled, insulin-dependent Severe hyperglycemia. Has improved. - continue on scheduled Levemir 10 units twice daily - continue accucheks and ISS coverage Acute protein calorie malnutrition- severe Severe dysphagia Has refused peg tube placement - strict NPO - Follow prealbumin weekly - Dignishield placed to protect wounds from soilage. - Follow prealbumin weekly. - TF resumed via Dobbhoff which has been replaced. -Speech therapy following. Acute kidney injury resolved -Tristan required for hourly urine output and to protect perineal region. -May ultimately require colostomy to protect this region however patient has declined. Left upper extremity DVT -12/22 doppler +DVT left internal jugular, subclavian, axillary and distal arm veins. -Cannot anticoagulate secondary to blood loss anemia requiring blood transfusion , frequent surgeries -02/06 repeat Doppler US LUE shows nonocclusive thrombus in the left basilar vein -continue on Lovenox Gangrene left 2nd digit -reevaluated by podiatry, appreciate assistance. Recommended digit amputation but patient refused. Wound care orders placed. Anemia, multifactorial, due to recurrent sepsis, anemia of chronic disease and episode of acute blood loss from Hgb as low as 6 s/p transfusion x 1 unit PRBCs 02/01 -Hemoglobin appears stable -No evidence of active bleeding. Continue to monitor -Continue monitor CBC as indicated Situational depression Anxiety Insomnia -Evaluated by psychiatry, appreciate assistance. Clonazepam dose increased and started on Remeron at bedtime. -Monitor Pepcid for GI ulcer prophylaxis SCDs/Lovenox for DVT prophylaxis code: FC Diet: glucerna
[2018-02-12] MEDS: Insulin NovoLIN Regular Correctional Sugar Inj SQ SCH ×4 (11:29→21:29)
[2018-02-12] MEDS: Insulin Detemir Inj 1,000 UNIT/10 ML Vial SQ SCH ×2 (11:30→21:29)
[2018-02-12] MEDS: Enoxaparin Inj 30 MG/0.3 ML Syringe SQ SCH (17:59)
[2018-02-12] MEDS: Dextrose 50% in Water 50 ML Vial IV.PUSH PRN (20:46)
[2018-02-12] MEDS: Mirtazapine 15 MG Tablet PO SCH (21:08)
[2018-02-13] MEDS: HYDROmorphone PF Inj 1 MG/ML Ampul IV.PUSH PRN ×3 (00:48→16:30)
[2018-02-13] MEDS: Oral Hygiene Kit OROPHARYNG SCH ×4 (03:41→16:35)
[2018-02-13] MEDS: oxyCODONE/Acetaminophen 10/325 Tablet PO PRN ×2 (03:42→20:41)
[2018-02-13] MEDS: clonazePAM 0.5 MG Tablet NG/OG SCH ×2 (06:59→13:36)
--- NOTE | 2018-02-13 08:51 | P.PNPL ---
Subjective Interval history: Patient is lying in bed in NAD. On TP's with 28% FIO2. Afebrile, awake. Physical Exam Vital signs: Vital Signs 02/12/18 11:49 02/12/18 11:50 02/12/18 11:59 Temperature Pulse Rate 92 H 97 H Respiratory Rate 16 16 Blood Pressure Pulse Oximetry 02/12/18 12:00 02/12/18 14:00 02/12/18 15:50 Temperature 98.4 F Pulse Rate 93 H 93 H Respiratory Rate 16 16 16 Blood Pressure 128/61 Pulse Oximetry 100 02/12/18 15:56 02/12/18 16:00 02/12/18 20:00 Temperature 98.1 F 97.9 F Pulse Rate 90 99 H 98 H Respiratory Rate 14 19 Blood Pressure 124/64 122/65 Pulse Oximetry 100 99 02/13/18 00:00 02/13/18 01:24 02/13/18 04:00 Temperature 98.0 F 98.8 F Pulse Rate 94 H 104 H Respiratory Rate 17 16 17 Blood Pressure 126/59 L 104/54 L Pulse Oximetry 100 99 100 02/13/18 06:00 02/13/18 07:57 Temperature Pulse Rate 94 H Respiratory Rate 16 16 Blood Pressure Pulse Oximetry 99 Intake & Output 02/12/18 02/13/18 02/13/18 18:59 06:59 18:59 Output Total 2350 / 2350 1000 / 1000 Balance -2350 / -2350 -1000 / -1000 Weight 63.2 kg Output: Stool 600 / 600 Urine Amount (Catheter) 1750 / 1750 1000 / 1000 Indwelling Urethral Catheter 1750 / 1750 1000 / 1000 Other: Date of Last Bowel Movement 02/13/18 - Constitutional no acute distress - Routine HEENT Exam Head: Present: normocephalic, atraumatic Eye: Present: EOMI, PERRL, normal accommodation, conjunctivae pink ENT: Present: mucous membranes moist - Routine Neck Exam Present: supple, full ROM, trachea midline - Routine Respiratory Exam Present: CTA bilaterally - Routine Cardiovascular Exam Present: RRR, S1, S2 - Routine Abdominal Exam Present: soft, normoactive bowel sounds - Routine Extremities Exam Present: pulses intact Comments: Left BKA - Routine Skin Exam Present: intact - Routine Neurological Exam Present: alert, oriented X3, CN II-XII intact - Urinary Catheter Management Indwelling Urethral Catheter Cath placed during this visit: yes Urethral indwelling: Yes Reason for continuing: Severe pressure ulcer/wound Insertion date: 01/13/18 Insertion time: 01:00 1 Cath placed during this visit: yes, but has since been removed by the nurse Urethral indwelling: Yes Reason for continuing: Severe pressure ulcer/wound Insertion date: 12/15/17 Removal date: 01/13/18 Removal time: 01:00 Assessment and Plan - Assessment (1) Septic shock with acute organ dysfunction due to anaerobic bacteria Code(s): A41.4 - Sepsis due to anaerobes; R65.21 - Severe sepsis with septic shock Status: Acute (2) Acute respiratory failure Code(s): J96.00 - Acute respiratory failure, unspecified whether with hypoxia or hypercapnia Status: Acute (3) Necrotizing fasciitis Code(s): M72.6 - Necrotizing fasciitis Status: Acute (4) Type 2 diabetes mellitus with hyperosmolar nonketotic hyperglycemia Code(s): E11.01 - Type 2 diabetes mellitus with hyperosmolarity with coma Status: Acute (5) MARIO (acute kidney injury) Code(s): N17.9 - Acute kidney failure, unspecified Status: Acute (6) Lactic acidosis Code(s): E87.2 - Acidosis Status: Acute - Plan 1. Chronic respiratory failure. 2. Status post tracheostomy on 01/07/2018. 3. Status post Pseudomonas pneumonia in December. 4. Urinary tract infection. 5. Status post necrotizing soft tissue infection of a chronic decubitus wound ulcer. 6. Nonocclusive thrombus, left upper extremity. 7. Anemia. 8. Diabetes mellitus. 9. Gangrene, left second toe. 10. Acute protein calorie malnutrition. Plan Monitor neuro status closely and avoid any sedatives. Continue with TP's and maintain sats> 92%. Bronchodilators Pulmonary toilet and trach care. CXR 02/11-. Persistent diffuse interstitial prominence with improving patchy airspace disease in the right lung. off antibiotics. Monitor for signs of infection(fever and WBC). ID is following. Monitor renal function. Electrolyte replacement as needed. Nutrition support- on tube feeds Glucerna 1.5@50ml/hr GI and deep venous thrombosis prophylaxis. on Lovenox 30 mg subc daily. Continue treatment plan
[2018-02-13] MEDS: Insulin Detemir Inj 1,000 UNIT/10 ML Vial SQ SCH ×2 (10:40→20:40)
[2018-02-13] MEDS: Insulin NovoLIN Regular Correctional Sugar Inj SQ SCH ×4 (10:41→20:45)
[2018-02-13] MEDS: Lansoprazole ODT 15 MG Tablet NG/OG SCH (10:43)
[2018-02-13] MEDS: Metoprolol Tartrate 50 MG Tablet NG/OG SCH ×2 (10:43→20:41)
[2018-02-13] MEDS: Senna/Docusate Sodium 8.6/50 MG Tablet NG/OG SCH ×2 (10:43→20:41)
[2018-02-13] MEDS: hydrALAZINE 50 MG Tablet NG/OG SCH ×3 (10:43→17:28)
[2018-02-13] MEDS: Chlorhexidine 0.12% Oral Kit 15 ML UDC OROPHARYNG SCH ×2 (10:43→20:39)
[2018-02-13] MEDS: Collagenase Oint 30 GM Tube TOPICAL SCH (10:44)
[2018-02-13] MEDS: Lactic Acid (Ammonium Lactate) 12% Lotion 225 GM Bottle TOPICAL SCH ×2 (10:44→20:39)
--- NOTE | 2018-02-13 13:22 | P.PN ---
Subjective Interval history: Follow-up visit for recurrent sepsis. Patient seen and examined resting in bed , appears to be comfortable and in no acute distress. She has a midline trach to T piece and I am able to read her lips. Reports her breathing is okay, denies any fevers, chills, shortness of breath, nausea, vomiting. Does complain of pain on her bottoms. Nurse does not report any acute events or changes. Hypoglycemia last night around 8:30 PM noted, blood sugar 70, patient received dextrose and blood sugar improved to 168. Physical Exam Vital signs: Vital Signs 02/12/18 14:00 02/12/18 15:50 02/12/18 15:56 Temperature Pulse Rate 93 H 90 Respiratory Rate 16 16 Blood Pressure Pulse Oximetry 02/12/18 16:00 02/12/18 20:00 02/13/18 00:00 Temperature 98.1 F 97.9 F 98.0 F Pulse Rate 99 H 98 H 94 H Respiratory Rate 14 19 17 Blood Pressure 124/64 122/65 126/59 L Pulse Oximetry 100 99 100 02/13/18 01:24 02/13/18 04:00 02/13/18 06:00 Temperature 98.8 F Pulse Rate 104 H Respiratory Rate 16 17 16 Blood Pressure 104/54 L Pulse Oximetry 99 100 02/13/18 07:57 02/13/18 08:00 02/13/18 11:09 Temperature 96.8 F L Pulse Rate 94 H 96 H 93 H Respiratory Rate 16 24 18 Blood Pressure 111/57 L Pulse Oximetry 99 98 Intake & Output 02/12/18 02/13/18 02/13/18 18:59 06:59 18:59 Output Total 2350 / 2350 1000 / 1000 Balance -2350 / -2350 -1000 / -1000 Weight 63.2 kg Output: Stool 600 / 600 Urine Amount (Catheter) 1750 / 1750 1000 / 1000 Indwelling Urethral Catheter 1750 / 1750 1000 / 1000 Other: Date of Last Bowel Movement 02/13/18 Narrative: General: Cachectic female resting in bed INAD. Chronically ill appearing. Awake and alert. SKIN: Warm and dry. +Scattered ecchymosis/petechia over entire body. HEENT: EOMI. Sclera clear, anicteric. No nasal drainage, Dobbhoff tube. PRINTED [employer] BOARDS LAMINATOR to t-piece. Respiratory: Supplemental oxygen through tracheostomy. Mostly clear, occ. rhonchi. Cardiovascular: Regular rate and rhythm. Abdomen: Soft, no guarding, nondistended, nontender. +BS. Back: Large dressing over lower back/buttocks area serosanguineous drainage towards the distal portion. Musculoskeletal: s/p right BKA. Left foot with eschar and erythema to dorsal aspect of the second digit. Also noted to have area of eschar on the third digit. Additionally, small area of necrosis noted on the outer aspect of the left great toe. left foot is warm. Neurological: Awake and alert. Following commands. Able to move all extremities spontaneously. No focal deficits. Psychiatric: Calm and cooperative. - Urinary Catheter Management Indwelling Urethral Catheter Cath placed during this visit: yes Urethral indwelling: Yes Reason for continuing: Severe pressure ulcer/wound Insertion date: 01/13/18 Insertion time: 01:00 1 Cath placed during this visit: yes, but has since been removed by the nurse Urethral indwelling: Yes Reason for continuing: Severe pressure ulcer/wound Insertion date: 12/15/17 Removal date: 01/13/18 Removal time: 01:00 Results - Labs CBC & Chem 7: 02/12/18 06:56 02/13/18 00:03 Laboratory Results - last 24 hr 02/12/18 02/12/18 02/12/18 17:23 20:28 21:19 POC Glucose 82 70 168 H Random Glucose 02/13/18 02/13/18 02/13/18 00:03 08:04 12:19 POC Glucose 154 H 172 H Random Glucose 109 H - Procedures lumbar wd debridement with wd vac Assessment and Plan - Assessment (1) Fasciitis Code(s): M72.9 - Fibroblastic disorder, unspecified Status: Acute - Plan Patient is a 52 year old female who presented to ED for septic shock with necrotizing fasciitis emanating from a deep chronic sacral decubitus ulcer. She has required multiple OR trips for I&D and VAC changes. Patient with recurrent bouts of severe sepsis on 01/14 but after 2 debridements, has improved. Now on T-piece, hemodynamically stable. Initially with encephalopathic, now has resolved. Was weaned off Levophed. Recurrent sepsis, resolved Recent CAUTI, PSAE PNA, PSAE, likely aspiration -BC with no growth x 5 days -Started on Zithromax and Zosyn, now off all antibiotics per ID 02/04. -white count improved with treatment Necrotizing soft tissue infection - General surgery service following back wounds, scheduling debridement and continuation with wound VAC. Plastic, Dr. De La Rosa reviewed patient's case on January 24 and felt she was not a good candidate for skin grafting as a wounds are not ready. He is also recommending a diverting colostomy which the patient is refusing. Complex case as patient is declining some recommended treatments. -pt. bleeding from left hip 01/31, required surgicel and several silver nitrate sticks used for cauterizing. Wound vac reapplied. - Wound vac off now on wet/dry dressing changes. -Palliative care is following. Overall poor prognosis. Patient requesting code status be changed back to Full Code. Patient continues to refuse recommended treatments. She continues to refuse PEG placement. She is refusing recommended colostomy and left foot digit amputation. -pain control with oxycodone and Dilaudid for breakthrough. Acute hypoxic and hypercarbic respiratory failure- persistent - s/p Trach in OR 12/28/17. -Tolerating T-piece -Continue duo nebs -Pulmonary following, appreciate assistance. - CXR on 02/11 reviewed. Appears improved. Diabetes mellitus type II, initially uncontrolled, insulin-dependent Severe hyperglycemia. Has improved. - continue on scheduled Levemir 10 units twice daily - continue accucheks and ISS coverage - 02/12/18 BS 70, will continue to monitor trends, if needed adjust Levemir dose. Acute protein calorie malnutrition- severe Severe dysphagia Has refused peg tube placement - strict NPO - Dignishield placed to protect wounds from soilage. - TF resumed via Dobbhoff which has been replaced. - Speech therapy following. Acute kidney injury resolved -Tristan required for hourly urine output and to protect perineal region. -May ultimately require colostomy to protect this region however patient has declined. Left upper extremity DVT -12/22 doppler +DVT left internal jugular, subclavian, axillary and distal arm veins. -Cannot anticoagulate secondary to blood loss anemia requiring blood transfusion , frequent surgeries -02/06 repeat Doppler US LUE shows nonocclusive thrombus in the left basilar vein - continue on Lovenox Gangrene left 2nd digit -reevaluated by podiatry, appreciate assistance. Recommended digit amputation but patient refused. - Podiatry following on a weekly basis, continue Betadine daily. Anemia, multifactorial, due to recurrent sepsis, anemia of chronic disease and episode of acute blood loss from Hgb as low as 6 s/p transfusion x 1 unit PRBCs 02/01 -Hemoglobin appears stable -No evidence of active bleeding. Continue to monitor -Continue monitor CBC as indicated Situational depression Anxiety Insomnia -Evaluated by psychiatry, appreciate assistance. Clonazepam and Remeron at bedtime. -Monitor Pepcid for GI ulcer prophylaxis SCDs/Lovenox for DVT prophylaxis code: GOGO Diet: glucerna Discussed Condition With: Patient and RN
[2018-02-13] MEDS: Enoxaparin Inj 30 MG/0.3 ML Syringe SQ SCH (17:28)
[2018-02-13] MEDS: Mirtazapine 15 MG Tablet PO SCH (20:41)
[2018-02-14] MEDS: clonazePAM 0.5 MG Tablet NG/OG SCH ×4 (01:50→21:29)
[2018-02-14] MEDS: Oral Hygiene Kit OROPHARYNG SCH ×4 (01:51→16:27)
[2018-02-14] MEDS: HYDROmorphone PF Inj 1 MG/ML Ampul IV.PUSH PRN ×4 (03:13→22:57)
[2018-02-14] MEDS: oxyCODONE/Acetaminophen 10/325 Tablet PO PRN ×3 (05:39→21:28)
[2018-02-14] MEDS: hydrALAZINE 50 MG Tablet NG/OG SCH ×3 (08:15→17:27)
[2018-02-14] MEDS: Senna/Docusate Sodium 8.6/50 MG Tablet NG/OG SCH ×2 (08:16→21:29)
[2018-02-14] MEDS: Metoprolol Tartrate 50 MG Tablet NG/OG SCH ×2 (08:16→21:29)
[2018-02-14] MEDS: Lansoprazole ODT 15 MG Tablet NG/OG SCH (08:16)
[2018-02-14] MEDS: Insulin NovoLIN Regular Correctional Sugar Inj SQ SCH ×4 (08:19→21:32)
[2018-02-14] MEDS: Chlorhexidine 0.12% Oral Kit 15 ML UDC OROPHARYNG SCH ×2 (08:19→21:29)
[2018-02-14] MEDS: Collagenase Oint 30 GM Tube TOPICAL SCH (08:20)
[2018-02-14] MEDS: Lactic Acid (Ammonium Lactate) 12% Lotion 225 GM Bottle TOPICAL SCH ×2 (08:20→21:29)
[2018-02-14] MEDS: Insulin Detemir Inj 1,000 UNIT/10 ML Vial SQ SCH ×2 (08:42→21:31)
--- NOTE | 2018-02-14 11:01 | P.PNPL ---
Subjective Interval history: No events overnight. On TP's with 28% FIO2. Physical Exam Vital signs: Vital Signs 02/13/18 11:09 02/13/18 12:00 02/13/18 14:00 Temperature 97.2 F L Pulse Rate 93 H 92 H Respiratory Rate 18 20 16 Blood Pressure 108/59 L Pulse Oximetry 98 02/13/18 15:51 02/13/18 15:52 02/13/18 16:00 Temperature 98.1 F Pulse Rate 92 H 101 H Respiratory Rate 20 20 Blood Pressure 127/60 Pulse Oximetry 98 100 02/13/18 17:00 02/13/18 18:00 02/13/18 19:00 Temperature Pulse Rate Respiratory Rate 16 16 Blood Pressure Pulse Oximetry 99 02/13/18 19:47 02/13/18 20:00 02/13/18 22:00 Temperature 98.1 F Pulse Rate 101 H 102 H Respiratory Rate 16 18 16 Blood Pressure 107/55 L Pulse Oximetry 99 02/13/18 23:26 02/14/18 02:00 02/14/18 03:27 Temperature 98.4 F Pulse Rate 94 H 92 H Respiratory Rate 16 16 18 Blood Pressure 125/64 Pulse Oximetry 98 02/14/18 04:00 02/14/18 06:00 02/14/18 07:43 Temperature 98.4 F Pulse Rate 100 H 93 H Respiratory Rate 16 16 18 Blood Pressure 132/68 Pulse Oximetry 100 02/14/18 08:00 Temperature 98.6 F Pulse Rate 98 H Respiratory Rate 14 Blood Pressure 126/69 Pulse Oximetry 100 Intake & Output 02/13/18 02/14/18 02/14/18 18:59 06:59 18:59 Intake Total 2976 / 2976 Output Total 1900 / 1900 Balance 2976 / 2976 -1900 / -1900 Weight 69.7 kg Intake: IV 1852 / 1852 Tube Feeding 524 / 524 Water Bolus Amount 600 / 600 Output: Urine 190 / 0 - Constitutional no acute distress - Routine HEENT Exam Head: Present: normocephalic, atraumatic Eye: Present: EOMI, PERRL, normal accommodation, conjunctivae pink ENT: Present: mucous membranes moist - Routine Neck Exam Present: supple, full ROM, trachea midline - Routine Respiratory Exam Present: CTA bilaterally - Routine Cardiovascular Exam Present: RRR, S1, S2 - Routine Abdominal Exam Present: soft, normoactive bowel sounds - Routine Extremities Exam Present: cyanosis Comments: Cyanosis 2nd toe on left, right BKA. - Routine Skin Exam Present: intact - Routine Neurological Exam Present: alert, oriented X3, CN II-XII intact - Urinary Catheter Management Indwelling Urethral Catheter Cath placed during this visit: yes Urethral indwelling: Yes Reason for continuing: Severe pressure ulcer/wound Insertion date: 01/13/18 Insertion time: 01:00 1 Cath placed during this visit: yes, but has since been removed by the nurse Urethral indwelling: Yes Reason for continuing: Severe pressure ulcer/wound Insertion date: 12/15/17 Removal date: 01/13/18 Removal time: 01:00 Assessment and Plan - Assessment (1) Septic shock with acute organ dysfunction due to anaerobic bacteria Code(s): A41.4 - Sepsis due to anaerobes; R65.21 - Severe sepsis with septic shock Status: Acute (2) Acute respiratory failure Code(s): J96.00 - Acute respiratory failure, unspecified whether with hypoxia or hypercapnia Status: Acute (3) Necrotizing fasciitis Code(s): M72.6 - Necrotizing fasciitis Status: Acute (4) Type 2 diabetes mellitus with hyperosmolar nonketotic hyperglycemia Code(s): E11.01 - Type 2 diabetes mellitus with hyperosmolarity with coma Status: Acute (5) MARIO (acute kidney injury) Code(s): N17.9 - Acute kidney failure, unspecified Status: Acute (6) Lactic acidosis Code(s): E87.2 - Acidosis Status: Acute - Plan 1. Chronic respiratory failure. 2. Status post tracheostomy on 01/07/2018. 3. Status post Pseudomonas pneumonia in December. 4. Urinary tract infection. 5. Status post necrotizing soft tissue infection of a chronic decubitus wound ulcer. 6. Nonocclusive thrombus, left upper extremity. 7. Anemia. 8. Diabetes mellitus. 9. Gangrene, left second toe. 10. Acute protein calorie malnutrition. Plan Monitor neuro status closely and avoid any sedatives. Continue with TP's and maintain sats> 92%. Bronchodilators Pulmonary toilet and trach care. CXR 02/11-interstitial prominence with improving patchy airspace disease in the right lung. off antibiotics. Monitor for signs of infection(fever and WBC). ID is following. Monitor renal function. Electrolyte replacement as needed. Nutrition support- on tube feeds Glucerna 1.5@50ml/hr via Dobbhoff tube GI and deep venous thrombosis prophylaxis. on Lovenox 30 mg subc daily. Continue treatment plan Discussed with RN.
--- NOTE | 2018-02-14 13:40 | P.PN ---
Subjective Interval history: Follow-up visit for recurrent sepsis. Patient is seen and examined resting comfortably in bed appears to be in no acute distress, asleep awakens easily to touch. Denies pain or discomfort at the moment. Nurse does not report any acute events. Physical Exam Vital signs: Vital Signs 02/13/18 14:00 02/13/18 15:51 02/13/18 15:52 Temperature Pulse Rate 92 H Respiratory Rate 16 20 Blood Pressure Pulse Oximetry 98 02/13/18 16:00 02/13/18 17:00 02/13/18 18:00 Temperature 98.1 F Pulse Rate 101 H Respiratory Rate 20 16 16 Blood Pressure 127/60 Pulse Oximetry 100 02/13/18 19:00 02/13/18 19:47 02/13/18 20:00 Temperature 98.1 F Pulse Rate 101 H 102 H Respiratory Rate 16 18 Blood Pressure 107/55 L Pulse Oximetry 99 99 02/13/18 22:00 02/13/18 23:26 02/14/18 02:00 Temperature 98.4 F Pulse Rate 94 H Respiratory Rate 16 16 16 Blood Pressure 125/64 Pulse Oximetry 98 02/14/18 03:27 02/14/18 04:00 02/14/18 06:00 Temperature 98.4 F Pulse Rate 92 H 100 H Respiratory Rate 18 16 16 Blood Pressure 132/68 Pulse Oximetry 100 02/14/18 07:43 02/14/18 08:00 02/14/18 11:29 Temperature 98.6 F Pulse Rate 93 H 98 H 79 Respiratory Rate 18 14 18 Blood Pressure 126/69 Pulse Oximetry 100 02/14/18 12:00 Temperature 99.2 F Pulse Rate 91 H Respiratory Rate 12 Blood Pressure 122/58 L Pulse Oximetry 96 Intake & Output 02/13/18 02/14/18 02/14/18 18:59 06:59 18:59 Intake Total 2976 / 2976 Output Total 1899 / 1900 Balance 2976 / 2976 -1900 / -1900 Weight 69.7 kg Intake: IV 1851 / 1852 Tube Feeding 524 / 524 Water Bolus Amount 600 / 600 Output: Urine 1899 / 1900 Other: Date of Last Bowel Movement 02/08/18 Narrative: General: Cachectic female resting in bed INAD. Chronically ill appearing. Awake and alert. SKIN: Warm and dry. +Scattered ecchymosis/petechia over entire body. HEENT: EOMI. Sclera clear, anicteric. No nasal drainage, Dobbhoff tube. HEAD SWAMPER to t-piece. Respiratory: Supplemental oxygen through tracheostomy. Mostly clear, occ. rhonchi. Cardiovascular: Regular rate and rhythm. Abdomen: Soft, no guarding, nondistended, nontender. +BS. Back: Large dressing over lower back/buttocks area serosanguineous drainage towards the distal portion. Musculoskeletal: s/p right BKA. Left foot with eschar and erythema to dorsal aspect of the second digit. Also noted to have area of eschar on the third digit. Additionally, small area of necrosis noted on the outer aspect of the left great toe. left foot is warm. Neurological: Awake and alert. Following commands. Able to move all extremities spontaneously. No focal deficits. Psychiatric: Calm and cooperative. - Urinary Catheter Management Indwelling Urethral Catheter Cath placed during this visit: yes Urethral indwelling: Yes Reason for continuing: Severe pressure ulcer/wound Insertion date: 01/13/18 Insertion time: 01:00 1 Cath placed during this visit: yes, but has since been removed by the nurse Urethral indwelling: Yes Reason for continuing: Severe pressure ulcer/wound Insertion date: 12/15/17 Removal date: 01/13/18 Removal time: 01:00 Results - Labs CBC & Chem 7: 02/12/18 06:56 02/13/18 00:03 Laboratory Results - last 24 hr 02/13/18 02/13/18 02/14/18 16:39 20:22 08:15 POC Glucose 146 H 157 H 130 H 02/14/18 12:21 POC Glucose 110 - Procedures lumbar wd debridement with wd vac Assessment and Plan - Assessment (1) Fasciitis Code(s): M72.9 - Fibroblastic disorder, unspecified Status: Acute - Plan Patient is a 52 year old female who presented to ED for septic shock with necrotizing fasciitis emanating from a deep chronic sacral decubitus ulcer. She has required multiple OR trips for I&D and VAC changes. Patient with recurrent bouts of severe sepsis on 01/14 but after 2 debridements, has improved. Now on T-piece, hemodynamically stable. Initially with encephalopathic, now has resolved. Was weaned off Levophed. Recurrent sepsis, resolved Recent CAUTI, PSAE PNA, PSAE, likely aspiration -BC with no growth x 5 days -Started on Zithromax and Zosyn, now off all antibiotics per ID 02/04. -white count improved with treatment Necrotizing soft tissue infection - General surgery service following back wounds, scheduling debridement and continuation with wound VAC. Plastic, Dr. De La Rosa reviewed patient's case on January 24 and felt she was not a good candidate for skin grafting as a wounds are not ready. He is also recommending a diverting colostomy which the patient is refusing. Complex case as patient is declining some recommended treatments. -pt. bleeding from left hip 01/31, required surgicel and several silver nitrate sticks used for cauterizing. Wound vac reapplied. - Wound vac off now on wet/dry dressing changes per wound care recommendations. -Palliative care is following. Overall poor prognosis. Patient requesting code status be changed back to Full Code. Patient continues to refuse recommended treatments. She continues to refuse PEG placement. She is refusing recommended colostomy and left foot digit amputation. -pain control with oxycodone and Dilaudid for breakthrough. Acute hypoxic and hypercarbic respiratory failure- persistent - s/p Trach in OR 12/28/17. -Tolerating T-piece -Continue duo nebs -Pulmonary following, appreciate assistance. - CXR on 02/11 reviewed. Appears improved. Diabetes mellitus type II, initially uncontrolled, insulin-dependent Severe hyperglycemia. Has improved. - continue on scheduled Levemir 10 units twice daily - continue accucheks and ISS coverage - 02/12/18 BS 70, blood sugar stable. Acute protein calorie malnutrition- severe Severe dysphagia Has refused peg tube placement - strict NPO - Dignishield placed to protect wounds from soilage. - TF resumed via Dobbhoff which has been replaced. - Speech therapy following. Acute kidney injury resolved -Tristan required for hourly urine output and to protect perineal region. -May ultimately require colostomy to protect this region however patient has declined. Left upper extremity DVT -12/22 doppler +DVT left internal jugular, subclavian, axillary and distal arm veins. -Cannot anticoagulate secondary to blood loss anemia requiring blood transfusion , frequent surgeries -02/06 repeat Doppler US LUE shows nonocclusive thrombus in the left basilar vein - continue on Lovenox Gangrene left 2nd digit -reevaluated by podiatry, appreciate assistance. Recommended digit amputation but patient refused. - Podiatry following on a weekly basis, continue Betadine daily. Anemia, multifactorial, due to recurrent sepsis, anemia of chronic disease and episode of acute blood loss from Hgb as low as 6 s/p transfusion x 1 unit PRBCs 02/01 -Hemoglobin appears stable -No evidence of active bleeding. Continue to monitor -Continue monitor CBC as indicated Situational depression Anxiety Insomnia -Evaluated by psychiatry, appreciate assistance. Clonazepam and Remeron at bedtime. -Monitor Pepcid for GI ulcer prophylaxis SCDs/Lovenox for DVT prophylaxis code: GGOO Diet: glucerna Discussed Condition With: Patient and RN
[2018-02-14] MEDS: Enoxaparin Inj 30 MG/0.3 ML Syringe SQ SCH (17:27)
[2018-02-14] MEDS: Mirtazapine 15 MG Tablet PO SCH (21:29)
[2018-02-15] MEDS: Oral Hygiene Kit OROPHARYNG SCH ×4 (00:36→15:56)
[2018-02-15] MEDS: oxyCODONE/Acetaminophen 10/325 Tablet PO PRN ×5 (01:43→21:23)
[2018-02-15] MEDS: HYDROmorphone PF Inj 1 MG/ML Ampul IV.PUSH PRN ×4 (03:55→22:35)
[2018-02-15] MEDS: clonazePAM 0.5 MG Tablet NG/OG SCH ×3 (06:16→21:24)
[2018-02-15] MEDS: Lansoprazole ODT 15 MG Tablet NG/OG SCH (10:04)
[2018-02-15] MEDS: hydrALAZINE 50 MG Tablet NG/OG SCH ×4 (10:05→17:05)
[2018-02-15] MEDS: Insulin Detemir Inj 1,000 UNIT/10 ML Vial SQ SCH ×2 (10:05→21:24)
[2018-02-15] MEDS: Metoprolol Tartrate 50 MG Tablet NG/OG SCH ×2 (10:05→21:24)
[2018-02-15] MEDS: Chlorhexidine 0.12% Oral Kit 15 ML UDC OROPHARYNG SCH ×2 (10:05→21:25)
[2018-02-15] MEDS: Senna/Docusate Sodium 8.6/50 MG Tablet NG/OG SCH ×2 (10:05→21:26)
[2018-02-15] MEDS: Lactic Acid (Ammonium Lactate) 12% Lotion 225 GM Bottle TOPICAL SCH ×2 (10:05→21:26)
--- NOTE | 2018-02-15 10:06 | P.PNPL ---
Subjective Interval history: Patient is awake and alert. afebrile. On TP's with 28% FIO2. Physical Exam Vital signs: Vital Signs 02/14/18 11:29 02/14/18 12:00 02/14/18 14:00 Temperature 99.2 F Pulse Rate 79 94 H Respiratory Rate 18 12 18 Blood Pressure 122/58 L Pulse Oximetry 96 02/14/18 16:00 02/14/18 18:00 02/14/18 20:00 Temperature 98.6 F 98.5 F Pulse Rate 84 93 H Respiratory Rate 14 18 22 Blood Pressure 127/59 L 130/76 Pulse Oximetry 96 100 02/14/18 21:15 02/14/18 21:53 02/15/18 00:00 Temperature 97.1 F L Pulse Rate 93 H 83 Respiratory Rate 20 Blood Pressure 130/65 Pulse Oximetry 95 100 02/15/18 00:02 02/15/18 02:00 02/15/18 02:20 Temperature Pulse Rate 80 Respiratory Rate 20 Blood Pressure Pulse Oximetry 97 02/15/18 04:00 02/15/18 04:32 02/15/18 08:00 Temperature 98.3 F 97.6 F Pulse Rate 80 77 74 Respiratory Rate 20 16 Blood Pressure 115/63 110/57 L Pulse Oximetry 100 100 02/15/18 09:34 Temperature Pulse Rate Respiratory Rate Blood Pressure Pulse Oximetry 100 Intake & Output 02/14/18 02/15/18 02/15/18 18:59 06:59 18:59 Intake Total 1629 / 1629 1150 / 1150 Output Total 800 / 800 1100 / 1100 Balance 829 / 829 50 / 50 Weight 69.5 kg Intake: Oral 0 / 0 Tube Feeding 1029 / 1029 550 / 550 Water Bolus Amount 600 / 600 600 / 600 Output: Urine 800 / 800 1100 / 1100 Other: Date of Last Bowel Movement 02/08/18 02/14/18 - Constitutional no acute distress - Routine HEENT Exam Head: Present: normocephalic, atraumatic Eye: Present: EOMI, PERRL, normal accommodation, conjunctivae pink ENT: Present: mucous membranes moist - Routine Neck Exam Present: supple, full ROM, trachea midline - Routine Respiratory Exam Present: CTA bilaterally - Routine Cardiovascular Exam Present: RRR, S1, S2 - Routine Abdominal Exam Present: soft, normoactive bowel sounds - Routine Extremities Exam Present: cyanosis, pulses intact Comments: Cyanosis 2nd toe on left. Right BKA. - Routine Neurological Exam Present: alert, oriented X3, CN II-XII intact - Urinary Catheter Management Indwelling Urethral Catheter Cath placed during this visit: yes Urethral indwelling: Yes Reason for continuing: Severe pressure ulcer/wound Insertion date: 01/13/18 Insertion time: 01:00 1 Cath placed during this visit: yes, but has since been removed by the nurse Urethral indwelling: Yes Reason for continuing: Severe pressure ulcer/wound Insertion date: 12/15/17 Removal date: 01/13/18 Removal time: 01:00 Assessment and Plan - Assessment (1) Septic shock with acute organ dysfunction due to anaerobic bacteria Code(s): A41.4 - Sepsis due to anaerobes; R65.21 - Severe sepsis with septic shock Status: Acute (2) Acute respiratory failure Code(s): J96.00 - Acute respiratory failure, unspecified whether with hypoxia or hypercapnia Status: Acute (3) Necrotizing fasciitis Code(s): M72.6 - Necrotizing fasciitis Status: Acute (4) Type 2 diabetes mellitus with hyperosmolar nonketotic hyperglycemia Code(s): E11.01 - Type 2 diabetes mellitus with hyperosmolarity with coma Status: Acute (5) MARIO (acute kidney injury) Code(s): N17.9 - Acute kidney failure, unspecified Status: Acute (6) Lactic acidosis Code(s): E87.2 - Acidosis Status: Acute - Plan 1. Chronic respiratory failure. 2. Status post tracheostomy on 01/07/2018. 3. Status post Pseudomonas pneumonia in December. 4. Urinary tract infection. 5. Status post necrotizing soft tissue infection of a chronic decubitus wound ulcer. 6. Nonocclusive thrombus, left upper extremity. 7. Anemia. 8. Diabetes mellitus. 9. Gangrene, left second toe. 10. Acute protein calorie malnutrition. Plan Monitor neuro status. Awake and alert. Continue with TP's and maintain sats> 92%. Bronchodilators Pulmonary toilet and trach care. CXR 02/11-interstitial prominence with improving patchy airspace disease in the right lung. off antibiotics. Monitor for signs of infection(fever and WBC). ID is following. Monitor renal function. Electrolyte replacement as needed. Nutrition support- on tube feeds Glucerna 1.5@50ml/hr via Dobbhoff tube GI and deep venous thrombosis prophylaxis. on Lovenox 30 mg subc daily. Continue treatment plan
[2018-02-15] MEDS: Collagenase Oint 30 GM Tube TOPICAL SCH (10:08)
[2018-02-15] MEDS: Insulin NovoLIN Regular Correctional Sugar Inj SQ SCH ×4 (10:08→21:26)
--- NOTE | 2018-02-15 13:15 | P.PN ---
Subjective Interval history: Follow-up visit for recurrent sepsis, necrotizing fasciitis of coccyx wound. Patient seen and examined sitting up in bed, communicates by writing on a piece of paper. Reports she has been sick however unable to further specify why. Denies any nausea, vomiting, headache, dizziness, cough or shortness of breath. Requesting pain medication from nurse, no acute events reported by nursing staff. Physical Exam Vital signs: Vital Signs 02/14/18 14:00 02/14/18 16:00 02/14/18 18:00 Temperature 98.6 F Pulse Rate 84 Respiratory Rate 18 14 18 Blood Pressure 127/59 L Pulse Oximetry 96 02/14/18 20:00 02/14/18 21:15 02/14/18 21:53 Temperature 98.5 F Pulse Rate 93 H 93 H Respiratory Rate 22 Blood Pressure 130/76 Pulse Oximetry 100 95 02/15/18 00:00 02/15/18 00:02 02/15/18 02:00 Temperature 97.1 F L Pulse Rate 83 80 Respiratory Rate 20 20 Blood Pressure 130/65 Pulse Oximetry 100 02/15/18 02:20 02/15/18 04:00 02/15/18 04:32 Temperature 98.3 F Pulse Rate 80 77 Respiratory Rate 20 Blood Pressure 115/63 Pulse Oximetry 97 100 02/15/18 08:00 02/15/18 09:34 02/15/18 12:00 Temperature 97.6 F 97 F L Pulse Rate 74 77 Respiratory Rate 16 18 Blood Pressure 110/57 L 108/57 L Pulse Oximetry 100 100 99 Intake & Output 02/14/18 02/15/18 02/15/18 18:59 06:59 18:59 Intake Total 1629 / 1629 1150 / 1150 Output Total 800 / 800 1100 / 1100 Balance 829 / 829 50 / 50 Weight 69.5 kg Intake: Oral 0 / 0 Tube Feeding 1029 / 1029 550 / 550 Water Bolus Amount 600 / 600 600 / 600 Output: Urine 800 / 800 1100 / 1100 Other: Date of Last Bowel Movement 02/08/18 02/14/18 02/15/18 Narrative: General: Cachectic female resting in bed INAD. Chronically ill appearing. Awake and alert. SKIN: Warm and dry. +Scattered ecchymosis/petechia over entire body. HEENT: EOMI. Sclera clear, anicteric. No nasal drainage, Dobbhoff tube. 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 Respiratory: Supplemental oxygen through tracheostomy. Mostly clear, occ. rhonchi. Cardiovascular: Regular rate and rhythm. Abdomen: Soft, no guarding, nondistended, nontender. +BS. Back: Large dressing over lower back/buttocks area serosanguineous drainage towards the distal portion. Musculoskeletal: s/p right BKA. Left foot with eschar and erythema to dorsal aspect of the second digit. Also noted to have area of eschar on the third digit. Additionally, small area of necrosis noted on the outer aspect of the left great toe. left foot is warm. Neurological: Awake and alert. Following commands. Able to move all extremities spontaneously. No focal deficits. Psychiatric: Calm and cooperative. - Urinary Catheter Management Indwelling Urethral Catheter Cath placed during this visit: yes Urethral indwelling: Yes Reason for continuing: Severe pressure ulcer/wound Insertion date: 01/13/18 Insertion time: 01:00 1 Cath placed during this visit: yes, but has since been removed by the nurse Urethral indwelling: Yes Reason for continuing: Severe pressure ulcer/wound Insertion date: 12/15/17 Removal date: 01/13/18 Removal time: 01:00 Results - Labs CBC & Chem 7: 02/12/18 06:56 02/13/18 00:03 Laboratory Results - last 24 hr 02/14/18 02/14/18 02/15/18 17:31 21:31 10:07 POC Glucose 91 105 80 02/15/18 11:35 POC Glucose 100 - Procedures lumbar wd debridement with wd vac Assessment and Plan - Assessment (1) Fasciitis Code(s): M72.9 - Fibroblastic disorder, unspecified Status: Acute - Plan Patient is a 52 year old female who presented to ED for septic shock with necrotizing fasciitis emanating from a deep chronic sacral decubitus ulcer. She has required multiple OR trips for I&D and VAC changes. Patient with recurrent bouts of severe sepsis on 01/14 but after 2 debridements, has improved. Now on T-piece, hemodynamically stable. Initially with encephalopathic, now has resolved. Was weaned off Levophed. Recurrent sepsis, resolved Recent CAUTI, PSAE PNA, PSAE, likely aspiration -BC with no growth x 5 days -Started on Zithromax and Zosyn, now off all antibiotics per ID 02/04. -white count improved with treatment Necrotizing soft tissue infection - General surgery service following back wounds, scheduling debridement and continuation with wound VAC. Plastic, Dr. De La Rosa reviewed patient's case on January 24 and felt she was not a good candidate for skin grafting as a wounds are not ready. He is also recommending a diverting colostomy which the patient is refusing. Complex case as patient is declining some recommended treatments. -pt. bleeding from left hip 01/31, required surgicel and several silver nitrate sticks used for cauterizing. Wound vac reapplied. - Wound vac off now on wet/dry dressing changes per wound care recommendations. -Palliative care is following. Overall poor prognosis. Patient requesting code status be changed back to Full Code. Patient continues to refuse recommended treatments. She continues to refuse PEG placement. She is refusing recommended colostomy and left foot digit amputation. -pain control with oxycodone and Dilaudid for breakthrough. Acute hypoxic and hypercarbic respiratory failure- persistent - s/p Trach in OR 12/28/17. -Tolerating T-piece -Continue duo nebs -Pulmonary following, appreciate assistance. - CXR on 02/11 reviewed. Appears improved. Diabetes mellitus type II, initially uncontrolled, insulin-dependent Severe hyperglycemia. Has improved. - continue accucheks and ISS coverage - BS on the low side, decrease Levemir to 8units BID, monitor trend. Acute protein calorie malnutrition- severe Severe dysphagia Has refused peg tube placement - strict NPO - Dignishield placed to protect wounds from soilage. - TF resumed via Dobbhoff which has been replaced. - Speech therapy following. Acute kidney injury resolved -Tristan required for hourly urine output and to protect perineal region. -May ultimately require colostomy to protect this region however patient has declined. Left upper extremity DVT -12/22 doppler +DVT left internal jugular, subclavian, axillary and distal arm veins. -Cannot anticoagulate secondary to blood loss anemia requiring blood transfusion , frequent surgeries -02/06 repeat Doppler US LUE shows nonocclusive thrombus in the left basilar vein - continue on Lovenox Gangrene left 2nd digit -reevaluated by podiatry, appreciate assistance. Recommended digit amputation but patient refused. - Podiatry following on a weekly basis, continue Betadine daily. Anemia, multifactorial, due to recurrent sepsis, anemia of chronic disease and episode of acute blood loss from Hgb as low as 6 s/p transfusion x 1 unit PRBCs 02/01 -Hemoglobin appears stable -No evidence of active bleeding. Continue to monitor -Continue monitor CBC as indicated Situational depression Anxiety Insomnia -Evaluated by psychiatry, appreciate assistance. Clonazepam and Remeron at bedtime. -Monitor Pepcid for GI ulcer prophylaxis SCDs/Lovenox for DVT prophylaxis code: GOGO Diet: glucerna Discussed Condition With: Patient and RN
[2018-02-15] MEDS: Enoxaparin Inj 30 MG/0.3 ML Syringe SQ SCH (17:05)
--- NOTE | 2018-02-15 18:28 | P.PNPOD ---
Subjective Interval history: Patient seen bedside able to communicate by writing. Physical Exam Vital signs: Vital Signs 02/14/18 20:00 02/14/18 21:15 02/14/18 21:53 Temperature 98.5 F Pulse Rate 93 H 93 H Respiratory Rate 22 Blood Pressure 130/76 Pulse Oximetry 100 95 02/15/18 00:00 02/15/18 00:02 02/15/18 02:00 Temperature 97.1 F L Pulse Rate 83 80 Respiratory Rate 20 20 Blood Pressure 130/65 Pulse Oximetry 100 02/15/18 02:20 02/15/18 04:00 02/15/18 04:32 Temperature 98.3 F Pulse Rate 80 77 Respiratory Rate 20 Blood Pressure 115/63 Pulse Oximetry 97 100 02/15/18 08:00 02/15/18 09:00 02/15/18 09:34 Temperature 97.6 F Pulse Rate 74 76 Respiratory Rate 16 Blood Pressure 110/57 L Pulse Oximetry 100 100 02/15/18 11:30 02/15/18 12:00 02/15/18 13:00 Temperature 97 F L Pulse Rate 77 76 Respiratory Rate 18 18 Blood Pressure 108/57 L Pulse Oximetry 99 02/15/18 13:22 02/15/18 14:00 02/15/18 16:00 Temperature 98.5 F Pulse Rate 78 Respiratory Rate 18 18 20 Blood Pressure 116/58 L Pulse Oximetry 100 02/15/18 16:36 02/15/18 16:41 02/15/18 17:58 Temperature Pulse Rate 76 Respiratory Rate 16 18 18 Blood Pressure Pulse Oximetry 02/15/18 18:04 Temperature Pulse Rate Respiratory Rate 18 Blood Pressure Pulse Oximetry Intake & Output 02/14/18 02/15/18 02/15/18 18:59 06:59 18:59 Intake Total 1629 / 1629 1150 / 1150 1210 / 1210 Output Total 800 / 800 1100 / 1100 Balance 829 / 829 50 / 50 1210 / 1210 Weight 69.5 kg Intake: Oral 0 / 0 Tube Feeding 1029 / 1029 550 / 550 550 / 550 Tube Irrigant 60 / 60 Water Bolus Amount 600 / 600 600 / 600 600 / 600 Output: Urine 800 / 800 1100 / 1100 Other: Date of Last Bowel Movement 02/08/18 02/14/18 02/15/18 Narrative: Right below the knee amputation noted. Left foot eschar noted to right second digit with no surrounding erythema or local signs of infection. Improvement noted to left second, third, and fourth digits. Stable eschar noted with improvement. Medications and Allergies Active Medications: Active Medications Acetaminophen (Tylenol) 650 mg NG/OG ONCE [facility] Last Admin: 01/15/18 16:38 Dose: 650 mg Acetaminophen (Tylenol) 650 mg NG/OG Q4H PRN PRN Reason: FEVER Last Admin: 02/04/18 23:38 Dose: 650 mg Al Hydroxide/Mg Hydroxide (Milk Of Kristen Zamarripa) 30 ml NG/OG Q12H PRN PRN Reason: Mild Constipation Albuterol (Duoneb Neb (Prn)) 1 ampul NEB Q2HR NEB PRN PRN Reason: WHEEZING Last Admin: 02/08/18 23:56 Dose: 1 ampul Albuterol (Duoneb Neb (Jose R)) 1 ampul NEB Q6HR NEB [facility] Last Admin: 02/15/18 16:36 Dose: 1 ampul Bisacodyl (Dulcolax Supp) 10 mg RECTAL DAILY PRN PRN Reason: SEVERE CONSITIPATION Chlorhexidine Gluconate (Peridex 0.12% Oral Kit) 15 ml OROPHARYNG BID@0800, 2000 [facility] Last Admin: 02/15/18 10:05 Dose: Not Given Clonazepam (Klonopin) 0.5 mg NG/OG Q8HR [facility] Last Admin: 02/15/18 13:23 Dose: 0.5 mg Collagenase (Santyl Oint) 1 applicatio TOPICAL DAILY [facility] Last Admin: 02/15/18 10:08 Dose: 1 applicatio Dextrose (D50w Vial) 50 ml IV.PUSH UNSCH PRN PRN Reason: PER HYPOGLYCEMIA PROTOCOL Last Admin: 02/12/18 20:46 Dose: 50 ml Enoxaparin Sodium (Lovenox Inj) 30 mg SQ DAILY@1800 [facility] Last Admin: 02/15/18 17:05 Dose: 30 mg Glucagon (Glucagon Inj) 1 mg OTHER PRN PRN PRN Reason: for Hypoglycemia Protocol Hydralazine HCl (Apresoline) 50 mg NG/OG TID [facility] Last Admin: 02/15/18 17:05 Dose: 50 mg Hydromorphone HCl (Dilaudid Pf Inj) 1 mg IV.PUSH Q3HR PRN PRN Reason: BREAKTHROUGH PAIN Last Admin: 02/15/18 17:06 Dose: 1 mg Hyoscyamine (Levsin) 0.125 mg PO Q4H PRN PRN Reason: secretions Last Admin: 02/15/18 01:43 Dose: 0.125 mg Insulin Detemir (Levemir Inj) 8 unit SQ BID [facility] Insulin Human Regular (Novolin R [employer] Sugar Inj) 0 units SQ ACHS [facility]; Protocol Last Admin: 02/15/18 16:37 Dose: Not Given L-Arginine/L-Glutamine/Calcium HMB (Alek Packet) 1 packet NG/OG BID [facility] Last Admin: 02/15/18 10:05 Dose: 1 packet Lactic Acid (Lac-Hydrin 12% Lotion) 1 applicatio TOPICAL BID [facility] Last Admin: 02/15/18 10:05 Dose: 1 applicatio Lactulose (Lactulose Liq) 30 ml NG/OG DAILY PRN PRN Reason: SEVERE CONSITIPATION Lansoprazole (Prevacid Solutab) 15 mg NG/OG DAILY [facility] Last Admin: 02/15/18 10:04 Dose: 15 mg Levothyroxine Sodium (Synthroid) 25 mcg PO DAILY@0600 [facility] Last Admin: 02/15/18 06:16 Dose: 25 mcg Lisinopril (Prinivil) 5 mg NG/OG DAILY [facility] Last Admin: 02/01/18 12:06 Dose: Not Given Metoprolol Tartrate (Lopressor) 50 mg NG/OG BID [facility] Last Admin: 02/15/18 10:05 Dose: 50 mg Mirtazapine (Remeron) 15 mg PO HS [facility] Last Admin: 02/14/18 21:29 Dose: 15 mg Miscellaneous Medication () 1 each OROPHARYNG 0000,0400,1200,1600 [facility] Last Admin: 02/15/18 15:56 Dose: Not Given Naloxone HCl (Narcan Inj) 0.4 mg IV.PUSH UNSCH PRN PRN Reason: SEE LABEL COMMENTS Ondansetron HCl (Zofran Inj) 4 mg IV.PUSH Q6H PRN PRN Reason: NAUSEA OR VOMITING Last Admin: 01/03/18 23:55 Dose: 4 mg Oxycodone/Acetaminophen (Percocet 10/325 Mg) 1 tab PO Q4H PRN PRN Reason: PAIN SCALE 6 TO 10 Last Admin: 02/15/18 15:50 Dose: 1 tab Oxycodone/Acetaminophen (Percocet 5/325 Mg) 1 tab PO Q4H PRN PRN Reason: PAIN SCALE 3 TO 5 Senna/Docusate Sodium (Belinda-Colace) 1 tab NG/OG BID [facility] Last Admin: 02/15/18 10:05 Dose: 1 tab Sennosides (Senokot) 17.2 mg NG/OG Q12H PRN PRN Reason: Moderate Constipation Sodium Chloride (Ns Flush) 2 ml IV.FLUSH BID [facility] Last Admin: 02/15/18 10:05 Dose: 2 ml Sodium Chloride (Ns Flush) 2 ml IV.FLUSH PRN PRN PRN Reason: FLUSH AFTER USING IV ACCESS Last Admin: 02/13/18 05:03 Dose: 2 ml Sterile Water (Free Water) 200 ml G-TUBE Q4HR [facility] Last Admin: 02/15/18 15:51 Dose: 200 ml Allergies Allergy/AdvReac Type Severity Reaction Status Date / Time No Known Allergies Allergy Verified 12/15/17 07:54 Home Medications Medication Instructions Recorded Confirmed Type insulin asp prt-insulin aspart 1 sliding scale dose SUBCUT UD 11/28/17 12/15/17 History [Novolog Mix 70-30 U-100 Insuln] insulin detemir U-100 [Levemir 15 unit SUBCUT QPM 11/28/17 12/15/17 History U-100 Insulin] Results - Labs CBC & Chem 7: 02/12/18 06:56 02/13/18 00:03 Laboratory Results - last 24 hr 02/14/18 02/15/18 02/15/18 21:31 10:07 11:35 POC Glucose 105 80 100 02/15/18 15:17 POC Glucose 108 - Procedures lumbar wd debridement with wd vac Assessment and Plan - Assessment (1) Gangrene of toe Code(s): I96 - Gangrene, not elsewhere classified Status: Acute - Plan 52-year-old female with left second third digit dry stable gangrene/eschar Continue with Betadine daily No acute signs of infection noted to left foot Will continue to evaluate and monitor No intervention planned at this time We will reevaluate weekly
[2018-02-15] MEDS: Mirtazapine 15 MG Tablet PO SCH (21:25)
[2018-02-16] MEDS: oxyCODONE/Acetaminophen 10/325 Tablet PO PRN (02:26)
[2018-02-16] MEDS: Oral Hygiene Kit OROPHARYNG SCH ×4 (04:14→18:08)
[2018-02-16] MEDS: clonazePAM 0.5 MG Tablet NG/OG SCH ×3 (05:35→21:36)
[2018-02-16] MEDS: HYDROmorphone PF Inj 1 MG/ML Ampul IV.PUSH PRN ×4 (05:35→21:36)
[2018-02-16] MEDS: Insulin NovoLIN Regular Correctional Sugar Inj SQ SCH ×4 (08:00→20:19)
[2018-02-16] MEDS: Metoprolol Tartrate 50 MG Tablet NG/OG SCH ×2 (09:30→20:15)
[2018-02-16] MEDS: Lansoprazole ODT 15 MG Tablet NG/OG SCH (09:30)
[2018-02-16] MEDS: Insulin Detemir Inj 1,000 UNIT/10 ML Vial SQ SCH ×2 (09:30→20:19)
[2018-02-16] MEDS: hydrALAZINE 50 MG Tablet NG/OG SCH ×3 (09:30→18:10)
[2018-02-16] MEDS: Lactic Acid (Ammonium Lactate) 12% Lotion 225 GM Bottle TOPICAL SCH ×2 (09:30→20:18)
[2018-02-16] MEDS: Povidone Iodine 10% Top Soln 118 ML Bottle TOPICAL SCH ×2 (09:30→20:18)
[2018-02-16] MEDS: Senna/Docusate Sodium 8.6/50 MG Tablet NG/OG SCH ×2 (09:30→20:15)
[2018-02-16 09:45] LABS: Baso # (Auto) 0.1 th/mm3 (0.0-0.2); Baso % (Auto) 0.7 % (0.0-2.0); Eos # (Auto) 0.1 th/mm3 (0.0-0.4); Eos % (Auto) 1.4 % (0.0-4.0); Hematocrit 26.3 % (35.0-46.0); Lymph # (Auto) 4.3 th/mm3 (1.0-4.8); Mean Corpuscular HGB Conc 34.2 % (32.0-36.0); Mean Corpuscular Hemoglobin 32.7 pg (27.0-34.0); Mean Corpuscular Volume 95.7 fL (80.0-100.0); Mean Platelet Volume 9.7 fL (7.0-11.0); Mono # (Auto) 0.8 th/mm3 (0.0-0.9); Mono % (Auto) 9.2 % (0.0-8.0); Neut # (Auto) 3.2 th/mm3 (1.8-7.7); Neut % (Auto) 37.7 % (16.0-70.0); Platelet Count 372 th/mm3 (150-450); Red Blood Count 2.74 mil/mm3 (4.00-5.30); Red Cell Distribution Width 14.7 % (11.6-17.2); White Blood Count 8.5 th/mm3 (4.0-11.0)
[2018-02-16 10:10] LABS: Albumin 2.4 g/dL (3.4-5.0); Anion Gap 10 meq/L (5-15); Aspartate Aminotransferase 57 U/L (15-37); Blood Urea Nitrogen 35 mg/dL (7-18); Calcium 8.9 mg/dL (8.5-10.1); Chloride 95 meq/L (98-107); Glomerular Filtration Rate Greater Than 89 mL/min (>89); Glucose,Random 98 mg/dL (74-106); Potassium 4.7 meq/L (3.5-5.1); Sodium 133 meq/L (136-145)
[2018-02-16 10:11] LABS: Alanine Aminotransferase 26 U/L (10-53)
[2018-02-16 10:13] LABS: Alkaline Phosphatase 771 U/L (45-117); Total Protein 8.7 g/dL (6.4-8.2)
[2018-02-16] MEDS: Chlorhexidine 0.12% Oral Kit 15 ML UDC OROPHARYNG SCH (10:43)
--- NOTE | 2018-02-16 16:31 | P.PNIM ---
Subjective Interval history: Follow up visit for recurrent sepsis, necrotizing fasciitis of coccyx wound Patient resting in bed. She complains of severe pain to her lower back/ sacral area. Large amount of drainage noted on dressing. RN at bedside performing dressing change. Tolerating tube feeds. Physical Exam Vital signs: Last Vital Signs Temp 98.6 F 02/16/18 16:00 Pulse 83 02/16/18 16:00 Resp 18 02/16/18 16:00 BP 101/53 L 02/16/18 16:00 Pulse Ox 100 02/16/18 16:00 Intake & Output 02/14/18 02/15/18 02/16/18 02/17/18 06:59 06:59 06:59 06:59 Intake Total 2976 / 2976 2779 / 2779 1210 / 1210 Output Total 1900 / 1900 1900 / 1900 2400 / 2400 Balance 1076 / 1076 879 / 879 -1190 / -1190 Weight 69.7 kg 69.5 kg Narrative: General: Cachectic female resting in bed INAD. Chronically ill appearing. Awake and alert. SKIN: Warm and dry. +Scattered ecchymosis/petechia over entire body. HEENT: EOMI. Sclera clear, anicteric. No nasal drainage, Dobbhoff tube. 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 Respiratory: Supplemental oxygen through tracheostomy. Mostly clear, occ. rhonchi. Cardiovascular: Regular rate and rhythm. Abdomen: Soft, no guarding, nondistended, nontender. +BS. Back: Large dressing over lower back/buttocks area serosanguineous drainage towards the distal portion. Musculoskeletal: s/p right BKA. Left foot with eschar and erythema to dorsal aspect of the second digit. Also noted to have area of eschar on the third digit. Additionally, small area of necrosis noted on the outer aspect of the left great toe. left foot is warm. Neurological: Awake and alert. Following commands. Able to move all extremities spontaneously. No focal deficits. Psychiatric: Calm and cooperative. Urinary Catheter Management Indwelling Urethral Catheter: Cath placed during this visit: yes Urethral indwelling: Yes Reason for continuing: Severe pressure ulcer/wound Insertion date: 01/13/18 Insertion time: 01:00 1: Cath placed during this visit: yes, but has since been removed by the nurse Urethral indwelling: Yes Insertion date: 12/15/17 Removal date: 01/13/18 Removal time: 01:00 Results Labs CBC & Chem 7: 02/16/18 09:18 02/16/18 09:18 Procedures Procedures: lumbar wd debridement with wd vac Assessment and Plan (1) Fasciitis: Code(s): M72.9 - Fibroblastic disorder, unspecified Status: Acute Plan Patient is a 52 year old female who presented to ED for septic shock with necrotizing fasciitis emanating from a deep chronic sacral decubitus ulcer. She has required multiple OR trips for I&D and VAC changes. Patient with recurrent bouts of severe sepsis on 01/14 but after 2 debridements, has improved. Now on T-piece, hemodynamically stable. Initially with encephalopathic, now has resolved. Was weaned off Levophed. Recurrent sepsis, resolved Recent CAUTI, PSAE PNA, PSAE, likely aspiration -BC with no growth x 5 days -Started on Zithromax and Zosyn, now off all antibiotics per ID 02/04. -white count improved with treatment Necrotizing soft tissue infection -General surgery service following back wounds, scheduling debridement and continuation with wound VAC. Plastic, Dr. De La Rosa reviewed patient's case on January 24 and felt she was not a good candidate for skin grafting as a wounds are not ready. He is also recommending a diverting colostomy which the patient is refusing. Complex case as patient is declining some recommended treatments. -pt. bleeding from left hip 01/31, required surgicel and several silver nitrate sticks used for cauterizing. Wound vac reapplied. - Wound vac off now on wet/dry dressing changes per wound care recommendations. -Palliative care is following. Overall poor prognosis. Patient requesting code status be changed back to Full Code. Patient continues to refuse recommended treatments. She continues to refuse PEG placement. She is refusing recommended colostomy and left foot digit amputation. -pain control with oxycodone and Dilaudid for breakthrough. Acute hypoxic and hypercarbic respiratory failure- persistent - s/p Trach in OR 12/28/17. -Tolerating T-piece -Continue duo nebs -Pulmonary following, appreciate assistance. - CXR on 02/11 reviewed. Appears improved. Diabetes mellitus type II, initially uncontrolled, insulin-dependent Severe hyperglycemia. Has improved. - continue accucheks and ISS coverage - BS on the low side, decrease Levemir to 8units BID, monitor trend. Acute protein calorie malnutrition- severe Severe dysphagia Has refused peg tube placement - strict NPO - Dignishield placed to protect wounds from soilage. - TF resumed via Dobbhoff which has been replaced. - Speech therapy following. Acute kidney injury resolved -Tristan required for hourly urine output and to protect perineal region. -May ultimately require colostomy to protect this region however patient has declined. Left upper extremity DVT -12/22 doppler +DVT left internal jugular, subclavian, axillary and distal arm veins. -Cannot anticoagulate secondary to blood loss anemia requiring blood transfusion , frequent surgeries -02/06 repeat Doppler US LUE shows nonocclusive thrombus in the left basilar vein - continue on Lovenox Gangrene left 2nd digit -reevaluated by podiatry, appreciate assistance. Recommended digit amputation but patient refused. - Podiatry following on a weekly basis, continue Betadine daily. Anemia, multifactorial, due to recurrent sepsis, anemia of chronic disease and episode of acute blood loss from Hgb as low as 6 s/p transfusion x 1 unit PRBCs 02/01 -Hemoglobin appears stable -No evidence of active bleeding. Continue to monitor -Continue monitor CBC as indicated Situational depression Anxiety Insomnia -Evaluated by psychiatry, appreciate assistance. Clonazepam and Remeron at bedtime. -Monitor Pepcid for GI ulcer prophylaxis SCDs/Lovenox for DVT prophylaxis code: FC Diet: glucerna Progress Note: Quality VTE Deep Vein Thrombosis/Pulmonary Embolism Present on Admission: No
[2018-02-16] MEDS ORDERED: HYDROcodone 5 MG/Homatropine 1.5 MG Syrup 5 ML UDC PO PRN (17:27)
[2018-02-16] MEDS: Enoxaparin Inj 30 MG/0.3 ML Syringe SQ SCH (18:09)
[2018-02-16] MEDS: Mirtazapine 15 MG Tablet PO SCH (20:16)
[2018-02-17] MEDS: HYDROmorphone PF Inj 1 MG/ML Ampul IV.PUSH PRN ×2 (00:34→05:12)
[2018-02-17] MEDS: Oral Hygiene Kit OROPHARYNG SCH ×4 (00:34→16:32)
[2018-02-17] MEDS: clonazePAM 0.5 MG Tablet NG/OG SCH ×3 (05:11→22:16)
[2018-02-17] MEDS: Povidone Iodine 10% Top Soln 118 ML Bottle TOPICAL SCH ×2 (09:50→20:47)
[2018-02-17] MEDS: Lactic Acid (Ammonium Lactate) 12% Lotion 225 GM Bottle TOPICAL SCH ×2 (09:50→20:47)
[2018-02-17] MEDS: Insulin NovoLIN Regular Correctional Sugar Inj SQ SCH ×4 (09:50→20:48)
[2018-02-17] MEDS: Insulin Detemir Inj 1,000 UNIT/10 ML Vial SQ SCH ×2 (10:04→20:44)
[2018-02-17] MEDS: Senna/Docusate Sodium 8.6/50 MG Tablet NG/OG SCH ×2 (10:05→20:31)
[2018-02-17] MEDS: hydrALAZINE 50 MG Tablet NG/OG SCH ×2 (10:05→13:46)
[2018-02-17] MEDS: Metoprolol Tartrate 50 MG Tablet NG/OG SCH ×2 (10:05→20:31)
[2018-02-17] MEDS: Lansoprazole ODT 15 MG Tablet NG/OG SCH (10:05)
--- NOTE | 2018-02-17 16:44 | P.PNIM ---
Subjective Interval history: Follow-up visit necrotizing fasciitis sacral wound, pain, recurrent sepsis Patient complains of severe pain to her sacral area. She states her pain is not well controlled with current medications. RN states she is having to administer pain meds every 2 hrs for minimal relief. Patient remains on trach. Denies nausea, vomiting, cough, fevers or chills. Physical Exam Vital signs: Last Vital Signs Temp 98.8 F 02/17/18 16:00 Pulse 83 02/17/18 16:07 Resp 16 02/17/18 16:07 BP 105/56 L 02/17/18 16:00 Pulse Ox 100 02/17/18 16:00 Intake & Output 02/15/18 02/16/18 02/17/18 02/18/18 06:59 06:59 06:59 06:59 Intake Total 2779 / 2779 1210 / 1210 Output Total 1900 / 1900 2400 / 2400 1150 / 1150 Balance 879 / 879 -1190 / -1190 -1150 / -1150 Weight 69.5 kg 66.4 kg Narrative: General: Cachectic female resting in bed. Moderate distress secondary to sacral pain. Chronically ill appearing. Awake and alert. SKIN: Warm and dry. +Scattered ecchymosis/petechia over entire body. HEENT: EOMI. Sclera clear, anicteric. No nasal drainage, Dobbhoff tube. 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 Respiratory: Supplemental oxygen through tracheostomy. Mostly clear, occ. rhonchi. Cardiovascular: Regular rate and rhythm. Abdomen: Soft, no guarding, nondistended, nontender. +BS. Back: Large dressing over lower back/buttocks area serosanguineous drainage towards the distal portion. Musculoskeletal: s/p right BKA. Left foot with eschar and erythema to dorsal aspect of the second digit. Also noted to have area of eschar on the third digit. Additionally, small area of necrosis noted on the outer aspect of the left great toe. left foot is warm. Neurological: Awake and alert. Following commands. Able to move all extremities spontaneously. No focal deficits. Psychiatric: Calm and cooperative. Urinary Catheter Management Indwelling Urethral Catheter: Cath placed during this visit: yes Urethral indwelling: Yes Insertion date: 01/13/18 Insertion time: 01:00 1: Cath placed during this visit: yes, but has since been removed by the nurse Urethral indwelling: Yes Insertion date: 12/15/17 Removal date: 01/13/18 Removal time: 01:00 Results Labs CBC & Chem 7: 02/16/18 09:18 02/16/18 09:18 Procedures Procedures: lumbar wd debridement with wd vac Assessment and Plan (1) Fasciitis: Code(s): M72.9 - Fibroblastic disorder, unspecified Status: Acute Plan Patient is a 52 year old female who presented to ED for septic shock with necrotizing fasciitis emanating from a deep chronic sacral decubitus ulcer. She has required multiple OR trips for I&D and VAC changes. Patient with recurrent bouts of severe sepsis on 01/14 but after 2 debridements, has improved. Now on T-piece, hemodynamically stable. Initially with encephalopathic, now has resolved. Was weaned off Levophed. Recurrent sepsis, resolved Recent CAUTI, PSAE PNA, PSAE, likely aspiration -BC with no growth x 5 days -Started on Zithromax and Zosyn, now off all antibiotics per ID 02/04. -white count improved with treatment Necrotizing soft tissue infection -General surgery service following back wounds, scheduling debridement and continuation with wound VAC. Plastic, Dr. De La Rosa reviewed patient's case on January 24 and felt she was not a good candidate for skin grafting as a wounds are not ready. He is also recommending a diverting colostomy which the patient is refusing. Complex case as patient is declining some recommended treatments. -pt. bleeding from left hip 01/31, required surgicel and several silver nitrate sticks used for cauterizing. Wound vac reapplied. -Wound vac off now on wet/dry dressing changes per wound care recommendations. -Palliative care is following. Overall poor prognosis. Patient requesting code status be changed back to Full Code. Patient continues to refuse recommended treatments. She continues to refuse PEG placement. She is refusing recommended colostomy and left foot digit amputation. -pain uncontrolled. Palliative care noted that due to multiple open areas on her trunk skin, it would be difficult to have consistent/reliable absorption of fentanyl patch. Added Oxycodone CR 10 mg PO BID, will continue Oxycodone 5 mg liquid every 5 hrs PRN. Acute hypoxic and hypercarbic respiratory failure- persistent -s/p Trach in OR 12/28/17 -Tolerating T-piece -Continue duo nebs -Pulmonary following, appreciate assistance. -CXR on 02/11 reviewed. Appears improved. Diabetes mellitus type II, initially uncontrolled, insulin-dependent Severe hyperglycemia. Has improved. - continue accucheks and ISS coverage - BS on the low side, decrease Levemir to 8units BID, monitor trend. Acute protein calorie malnutrition- severe Severe dysphagia Has refused peg tube placement - strict NPO - Dignishield placed to protect wounds from soilage. - TF resumed via Dobbhoff which has been replaced. - Speech therapy following. Acute kidney injury resolved -Tristan required for hourly urine output and to protect perineal region. -May ultimately require colostomy to protect this region however patient has declined. Left upper extremity DVT -12/22 doppler +DVT left internal jugular, subclavian, axillary and distal arm veins. -Cannot anticoagulate secondary to blood loss anemia requiring blood transfusion , frequent surgeries -02/06 repeat Doppler US LUE shows nonocclusive thrombus in the left basilar vein - continue on Lovenox Gangrene left 2nd digit -reevaluated by podiatry, appreciate assistance. Recommended digit amputation but patient refused. - Podiatry following on a weekly basis, continue Betadine daily. Anemia, multifactorial, due to recurrent sepsis, anemia of chronic disease and episode of acute blood loss from Hgb as low as 6 s/p transfusion x 1 unit PRBCs 02/01 -Hemoglobin appears stable -No evidence of active bleeding. Continue to monitor -Continue monitor CBC as indicated Situational depression Anxiety Insomnia -Evaluated by psychiatry, appreciate assistance. Clonazepam and Remeron at bedtime. -Monitor Pepcid for GI ulcer prophylaxis SCDs/Lovenox for DVT prophylaxis code: FC Diet: glucerna Progress Note: Quality VTE Deep Vein Thrombosis/Pulmonary Embolism Present on Admission: No
[2018-02-17] MEDS ORDERED: HYDROmorphone PF Inj 0.5 MG/0.5 ML Syringe IV.PUSH ONE (16:50)
[2018-02-17] MEDS: Mirtazapine 15 MG Tablet PO SCH (20:32)
[2018-02-17] MEDS: oxyCODONE 10 MG Controlled Release Tablet PO SCH (23:00)
[2018-02-18] MEDS: Oral Hygiene Kit OROPHARYNG SCH ×5 (04:42→23:17)
[2018-02-18] MEDS: clonazePAM 0.5 MG Tablet NG/OG SCH ×3 (05:36→23:12)
--- NOTE | 2018-02-18 08:40 | P.PNPL ---
Subjective Interval history: No events overnight. On TP's with 28% FIO2. Afebrile. Awake, alert. Tolerating tube feeds. Physical Exam Vital signs: Vital Signs 02/17/18 10:00 02/17/18 10:03 02/17/18 12:00 Temperature 98.9 F Pulse Rate 77 Respiratory Rate 16 16 Blood Pressure 105/59 L Pulse Oximetry 100 99 02/17/18 14:00 02/17/18 16:00 02/17/18 16:07 Temperature 98.8 F Pulse Rate 69 83 Respiratory Rate 16 16 16 Blood Pressure 105/56 L Pulse Oximetry 100 02/17/18 18:00 02/17/18 20:00 02/17/18 21:56 Temperature 98.6 F Pulse Rate 94 H 84 Respiratory Rate 16 20 16 Blood Pressure 115/67 Pulse Oximetry 100 99 02/17/18 22:00 02/18/18 00:00 02/18/18 04:00 Temperature 98.5 F 98.2 F Pulse Rate 88 93 H Respiratory Rate 18 22 22 Blood Pressure 120/64 119/58 L Pulse Oximetry 100 100 02/18/18 04:58 02/18/18 06:00 Temperature Pulse Rate 89 Respiratory Rate 20 18 Blood Pressure Pulse Oximetry 98 Intake & Output 02/17/18 02/18/18 02/18/18 18:59 06:59 18:59 Intake Total 3710 / 3710 0 / 0 Output Total 2765 / 2765 1000 / 1000 Balance 945 / 945 -1000 / -1000 Weight 66.3 kg Intake: Oral 0 / 0 0 / 0 Tube Feeding 550 / 550 Tube Irrigant 60 / 60 Water Bolus Amount 600 / 600 Anesthesia Amount 500 / 500 Other 2000 / 2000 Output: Urine 1250 / 1250 1000 / 1000 Stool 600 / 600 Urine/Stool Mix 800 / 800 Emesis 100 / 100 Estimated Blood Loss 15 / 15 Other: Mode Setting Left buttock and sacral wounds Continuous Posterior Sacrum Continuous back and L buttock Continuous Other Intake Source Saline Solution # Incontinent Voids 2 Date of Last Bowel Movement 02/15/18 02/17/18 # Bowel Movements 1 # Incontinent Bowel Movements 1 # Oral Regurgitations 3 - Constitutional no acute distress - Routine HEENT Exam Head: Present: normocephalic, atraumatic Eye: Present: EOMI, PERRL, normal accommodation, conjunctivae pink ENT: Present: mucous membranes moist - Routine Neck Exam Present: supple, full ROM, trachea midline - Routine Respiratory Exam Present: CTA bilaterally - Routine Cardiovascular Exam Present: RRR, S1, S2 - Routine Abdominal Exam Present: soft, normoactive bowel sounds - Routine Extremities Exam Present: pulses intact - Routine Skin Exam Present: intact - Routine Neurological Exam Present: alert, oriented X3, CN II-XII intact - Urinary Catheter Management Indwelling Urethral Catheter Cath placed during this visit: yes Urethral indwelling: Yes Reason for continuing: Severe pressure ulcer/wound Insertion date: 01/13/18 Insertion time: 01:00 1 Cath placed during this visit: yes, but has since been removed by the nurse Urethral indwelling: Yes Reason for continuing: Severe pressure ulcer/wound Insertion date: 12/15/17 Removal date: 01/13/18 Removal time: 01:00 Assessment and Plan - Assessment (1) Septic shock with acute organ dysfunction due to anaerobic bacteria Code(s): A41.4 - Sepsis due to anaerobes; R65.21 - Severe sepsis with septic shock Status: Acute (2) Acute respiratory failure Code(s): J96.00 - Acute respiratory failure, unspecified whether with hypoxia or hypercapnia Status: Acute (3) Necrotizing fasciitis Code(s): M72.6 - Necrotizing fasciitis Status: Acute (4) Type 2 diabetes mellitus with hyperosmolar nonketotic hyperglycemia Code(s): E11.01 - Type 2 diabetes mellitus with hyperosmolarity with coma Status: Acute (5) MARIO (acute kidney injury) Code(s): N17.9 - Acute kidney failure, unspecified Status: Acute (6) Lactic acidosis Code(s): E87.2 - Acidosis Status: Acute - Plan 1. Chronic respiratory failure. 2. Status post tracheostomy on 01/07/2018. 3. Status post Pseudomonas pneumonia in December. 4. Urinary tract infection. 5. Status post necrotizing soft tissue infection of a chronic decubitus wound ulcer. 6. Nonocclusive thrombus, left upper extremity. 7. Anemia. 8. Diabetes mellitus. 9. Gangrene, left second toe. 10. Acute protein calorie malnutrition. Plan Monitor neuro status. Awake and alert. Continue with TP's and maintain sats> 92%. Bronchodilators Pulmonary toilet and trach care. CXR 02/11-interstitial prominence with improving patchy airspace disease in the right lung. off antibiotics. Monitor for signs of infection(fever and WBC). ID is following PRN Monitor renal function. Electrolyte replacement as needed. Nutrition support- on tube feeds Glucerna 1.5@50ml/hr via Dobbhoff tube GI and deep venous thrombosis prophylaxis. on Lovenox 30 mg subc daily. Continue treatment plan
[2018-02-18] MEDS: Lansoprazole ODT 15 MG Tablet NG/OG SCH (08:58)
[2018-02-18] MEDS: Senna/Docusate Sodium 8.6/50 MG Tablet NG/OG SCH ×2 (08:58→23:12)
[2018-02-18] MEDS: Metoprolol Tartrate 50 MG Tablet NG/OG SCH ×2 (08:58→23:12)
[2018-02-18] MEDS: Povidone Iodine 10% Top Soln 118 ML Bottle TOPICAL SCH ×2 (08:59→23:15)
[2018-02-18] MEDS: hydrALAZINE 50 MG Tablet NG/OG SCH ×3 (09:00→18:27)
[2018-02-18] MEDS: Insulin NovoLIN Regular Correctional Sugar Inj SQ SCH ×4 (09:03→23:12)
[2018-02-18] MEDS: Insulin Detemir Inj 1,000 UNIT/10 ML Vial SQ SCH ×2 (09:08→23:13)
[2018-02-18] MEDS: Lactic Acid (Ammonium Lactate) 12% Lotion 225 GM Bottle TOPICAL SCH ×2 (09:09→23:15)
[2018-02-18] MEDS: oxyCODONE 10 MG Controlled Release Tablet PO SCH (09:44)
[2018-02-18] MEDS: Enoxaparin Inj 30 MG/0.3 ML Syringe SQ SCH (17:12)
--- NOTE | 2018-02-18 17:24 | P.PNIM ---
Subjective Interval history: Follow-up visit necrotizing fasciitis sacral wound, pain, recurrent sepsis Patient complains of rectal and sacral pain. RN states Dignishield came out and unable to replace secondary to patient complaining of rectal pain. Patient is teary eyed and states she is wanting to go home to be with her . She requests a colostomy if she is able to be discharged home. Discussed with patient that she has multiple medical issues at the present time and that the existence of a colostomy tube would not be the only deciding factor in her ability to go home. Tristan catheter in place. Physical Exam Vital signs: Last Vital Signs Temp 97.7 F 02/18/18 12:00 Pulse 82 02/18/18 16:10 Resp 14 02/18/18 16:10 BP 111/59 L 02/18/18 12:00 Pulse Ox 96 02/18/18 15:12 Intake & Output 02/16/18 02/17/18 02/18/18 02/19/18 06:59 06:59 06:59 06:59 Intake Total 1210 / 1210 3710 / 3710 Output Total 2400 / 2400 1150 / 1150 3765 / 3765 Balance -1190 / -1190 -1150 / -1150 -55 / -55 Weight 66.4 kg 66.3 kg Narrative: General: Cachectic female resting in bed. Moderate distress secondary to sacral pain. Chronically ill appearing. Awake and alert. SKIN: Warm and dry. +Scattered ecchymosis/petechia over entire body. HEENT: EOMI. Sclera clear, anicteric. No nasal drainage, Dobbhoff tube. LINOTYPE MECHANIC to t-piece. Respiratory: Supplemental oxygen through tracheostomy. Mostly clear, occ. rhonchi. Cardiovascular: Regular rate and rhythm. Abdomen: Soft, no guarding, nondistended, nontender. +BS. Back: Large dressing over lower back/buttocks area serosanguineous drainage towards the distal portion. Musculoskeletal: s/p right BKA. Left foot with eschar and erythema to dorsal aspect of the second digit. Also noted to have area of eschar on the third digit. Additionally, small area of necrosis noted on the outer aspect of the left great toe. left foot is warm. Neurological: Awake and alert. Following commands. Able to move all extremities spontaneously. No focal deficits. Psychiatric: Calm and cooperative. Urinary Catheter Management Indwelling Urethral Catheter: Cath placed during this visit: yes Urethral indwelling: Yes Insertion date: 01/13/18 Insertion time: 01:00 1: Cath placed during this visit: yes, but has since been removed by the nurse Urethral indwelling: Yes Insertion date: 12/15/17 Removal date: 01/13/18 Removal time: 01:00 Results Labs CBC & Chem 7: 02/16/18 09:18 02/16/18 09:18 Procedures Procedures: lumbar wd debridement with wd vac Assessment and Plan (1) Fasciitis: Code(s): M72.9 - Fibroblastic disorder, unspecified Status: Acute Plan Patient is a 52 year old female who presented to ED for septic shock with necrotizing fasciitis emanating from a deep chronic sacral decubitus ulcer. She has required multiple OR trips for I&D and VAC changes. Patient with recurrent bouts of severe sepsis on 01/14 but after 2 debridements, has improved. Now on T-piece, hemodynamically stable. Initially with encephalopathic, now has resolved. Was weaned off Levophed. Recurrent sepsis, resolved Recent CAUTI, PSAE PNA, PSAE, likely aspiration -BC with no growth x 5 days -Started on Zithromax and Zosyn, now off all antibiotics per ID 02/04. -white count improved with treatment Necrotizing soft tissue infection -General surgery service following back wounds, scheduling debridement and continuation with wound VAC. Plastic, Dr. De La Rosa reviewed patient's case on January 24 and felt she was not a good candidate for skin grafting as a wounds are not ready. He is also recommending a diverting colostomy which the patient is refusing. Complex case as patient is declining some recommended treatments. -pt. bleeding from left hip 01/31, required surgicel and several silver nitrate sticks used for cauterizing. Wound vac reapplied. -Wound vac off now on wet/dry dressing changes per wound care recommendations. -Palliative care is following. Overall poor prognosis. Patient requesting code status be changed back to Full Code. Patient continues to refuse recommended treatments. She continues to refuse PEG placement. She is refusing recommended colostomy and left foot digit amputation. -pain uncontrolled. Palliative care noted that due to multiple open areas on her trunk skin, it would be difficult to have consistent/reliable absorption of fentanyl patch. Unable to crushy Oxycodone CR to administer through the DHT. Order placed for Fentanyl patch 25 mcg transdermal (pt previously on 50 mcg). Will evaluate for effectiveness. Acute hypoxic and hypercarbic respiratory failure- persistent -s/p Trach in OR 12/28/17 -Tolerating T-piece -Continue duo nebs -Pulmonary following, appreciate assistance. -CXR on 02/11 reviewed. Appears improved. Diabetes mellitus type II, initially uncontrolled, insulin-dependent Severe hyperglycemia. Has improved. - continue accucheks and ISS coverage -continue Levemir to 8units BID Acute protein calorie malnutrition- severe Severe dysphagia Has refused peg tube placement - strict NPO - Dignishield placed to protect wounds from soilage. This came out 02/18/18, unable to replace secondary to patient complaining of rectal pain. Re-attempt at later time. - TF resumed via Dobbhoff which has been replaced. - Speech therapy following. Acute kidney injury resolved -Tristan required for hourly urine output and to protect perineal region. -May ultimately require colostomy to protect this region however patient has declined. Left upper extremity DVT -12/22 doppler +DVT left internal jugular, subclavian, axillary and distal arm veins. -Cannot anticoagulate secondary to blood loss anemia requiring blood transfusion , frequent surgeries -02/06 repeat Doppler US LUE shows nonocclusive thrombus in the left basilar vein - continue on Lovenox Gangrene left 2nd digit -reevaluated by podiatry, appreciate assistance. Recommended digit amputation but patient refused. - Podiatry following on a weekly basis, continue Betadine daily. Anemia, multifactorial, due to recurrent sepsis, anemia of chronic disease and episode of acute blood loss from Hgb as low as 6 s/p transfusion x 1 unit PRBCs 02/01 -Hemoglobin appears stable -No evidence of active bleeding. Continue to monitor -Continue monitor CBC as indicated Situational depression Anxiety Insomnia -Evaluated by psychiatry, appreciate assistance. Clonazepam and Remeron at bedtime. -Monitor Pepcid for GI ulcer prophylaxis SCDs/Lovenox for DVT prophylaxis code: GOGO Diet: glucerna Progress Note: Quality VTE Deep Vein Thrombosis/Pulmonary Embolism Present on Admission: No
[2018-02-18] MEDS: Mirtazapine 15 MG Tablet PO SCH (23:12)
[2018-02-19] MEDS: Acetaminophen 325 MG Tablet NG/OG PRN (02:39)
[2018-02-19] MEDS: Oral Hygiene Kit OROPHARYNG SCH ×3 (03:12→18:28)
[2018-02-19] MEDS: clonazePAM 0.5 MG Tablet NG/OG SCH ×3 (06:17→22:12)
[2018-02-19] MEDS: Insulin NovoLIN Regular Correctional Sugar Inj SQ SCH ×4 (08:19→22:39)
--- NOTE | 2018-02-19 09:49 | P.PNPL ---
Subjective Interval history: Patient is on TP's with 28% FIO2. Afebrile. Physical Exam Vital signs: Vital Signs 02/18/18 10:00 02/18/18 12:00 02/18/18 15:12 Temperature 97.7 F Pulse Rate 85 Respiratory Rate 18 16 Blood Pressure 111/59 L Pulse Oximetry 100 96 02/18/18 16:00 02/18/18 16:10 02/18/18 20:00 Temperature 98.3 F 98.8 F Pulse Rate 88 82 98 H Respiratory Rate 16 14 18 Blood Pressure 112/59 L 130/64 Pulse Oximetry 100 96 02/18/18 20:30 02/18/18 22:00 02/19/18 08:45 Temperature Pulse Rate 90 Respiratory Rate 18 18 Blood Pressure Pulse Oximetry 98 99 Intake & Output 02/18/18 02/19/18 02/19/18 18:59 06:59 18:59 Output Total 1000 / 1000 1750 / 1750 Balance -1000 / -1000 -1750 / -1750 Output: Urine 1000 / 1000 1750 / 1750 Other: Date of Last Bowel Movement 02/18/18 02/18/18 # Bowel Movements 1 2 - Constitutional no acute distress - Routine HEENT Exam Head: Present: normocephalic, atraumatic Eye: Present: EOMI, PERRL, normal accommodation, conjunctivae pink - Routine Neck Exam Present: supple, full ROM, trachea midline - Routine Respiratory Exam Present: CTA bilaterally - Routine Cardiovascular Exam Present: RRR, S1, S2 - Routine Abdominal Exam Present: soft, normoactive bowel sounds - Routine Extremities Exam Present: pulses intact - Routine Neurological Exam Present: alert, oriented X3, CN II-XII intact - Urinary Catheter Management Indwelling Urethral Catheter Cath placed during this visit: yes Urethral indwelling: Yes Reason for continuing: Terminally ill/Comfort care Insertion date: 01/13/18 Insertion time: 01:00 1 Cath placed during this visit: yes, but has since been removed by the nurse Urethral indwelling: Yes Reason for continuing: Severe pressure ulcer/wound Insertion date: 12/15/17 Removal date: 01/13/18 Removal time: 01:00 Assessment and Plan - Assessment (1) Septic shock with acute organ dysfunction due to anaerobic bacteria Code(s): A41.4 - Sepsis due to anaerobes; R65.21 - Severe sepsis with septic shock Status: Acute (2) Acute respiratory failure Code(s): J96.00 - Acute respiratory failure, unspecified whether with hypoxia or hypercapnia Status: Acute (3) Necrotizing fasciitis Code(s): M72.6 - Necrotizing fasciitis Status: Acute (4) Type 2 diabetes mellitus with hyperosmolar nonketotic hyperglycemia Code(s): E11.01 - Type 2 diabetes mellitus with hyperosmolarity with coma Status: Acute (5) MARIO (acute kidney injury) Code(s): N17.9 - Acute kidney failure, unspecified Status: Acute (6) Lactic acidosis Code(s): E87.2 - Acidosis Status: Acute - Plan 1. Chronic respiratory failure. 2. Status post tracheostomy on 01/07/2018. 3. Status post Pseudomonas pneumonia in December. 4. Urinary tract infection. 5. Status post necrotizing soft tissue infection of a chronic decubitus wound ulcer. 6. Nonocclusive thrombus, left upper extremity. 7. Anemia. 8. Diabetes mellitus. 9. Gangrene, left second toe. 10. Acute protein calorie malnutrition. Plan Monitor neuro status. Awake and alert. Continue with TP's and maintain sats> 92%. Bronchodilators Pulmonary toilet and trach care. CXR 02/11-interstitial prominence with improving patchy airspace disease in the right lung. off antibiotics. Monitor for signs of infection(fever and WBC). ID is following PRN Monitor renal function. Electrolyte replacement as needed. Nutrition support- on tube feeds Glucerna 1.5@55ml/hr via Dobbhoff tube GI/DVT prophylaxis. on Lovenox 30 mg subc daily. Continue treatment plan
[2018-02-19] MEDS: Metoprolol Tartrate 50 MG Tablet NG/OG SCH ×2 (11:15→22:37)
[2018-02-19] MEDS: Lansoprazole ODT 15 MG Tablet NG/OG SCH (11:16)
[2018-02-19] MEDS: hydrALAZINE 50 MG Tablet NG/OG SCH ×3 (11:16→18:25)
[2018-02-19] MEDS: Povidone Iodine 10% Top Soln 118 ML Bottle TOPICAL SCH ×2 (11:16→22:36)
[2018-02-19] MEDS: Senna/Docusate Sodium 8.6/50 MG Tablet NG/OG SCH ×2 (11:16→22:41)
[2018-02-19] MEDS: Lactic Acid (Ammonium Lactate) 12% Lotion 225 GM Bottle TOPICAL SCH ×2 (11:20→22:37)
[2018-02-19] MEDS: Insulin Detemir Inj 1,000 UNIT/10 ML Vial SQ SCH ×2 (11:27→22:40)
--- NOTE | 2018-02-19 15:25 | P.PNIM ---
Subjective Interval history: Follow-up visit necrotizing fasciitis sacral wound, pain, recurrent sepsis Patient lying on her left side in bed. She complains of sacral area pain and is requesting pain medication. Patient states nothing so far has helped with her pain. Dignishield came out yesterday and patient declining re-insertion secondary to rectal pain. She states she wants a colostomy now as she would like for her sacral wound to heal so that she may go home. Physical Exam Vital signs: Last Vital Signs Temp 98.4 F 02/19/18 12:00 Pulse 81 02/19/18 12:00 Resp 16 02/19/18 12:00 BP 108/61 02/19/18 12:00 Pulse Ox 100 02/19/18 12:00 Intake & Output 02/17/18 02/18/18 02/19/18 02/20/18 06:59 06:59 06:59 06:59 Intake Total 3710 / 3710 Output Total 1150 / 1150 3765 / 3765 2750 / 2750 Balance -1150 / -1150 -55 / -55 -2750 / -2750 Weight 66.4 kg 66.3 kg Narrative: General: Cachectic female resting in bed. Moderate distress secondary to sacral pain. Chronically ill appearing. Awake and alert. SKIN: Warm and dry. +Scattered ecchymosis/petechia over entire body. HEENT: EOMI. Sclera clear, anicteric. No nasal drainage, Dobbhoff tube. 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 Respiratory: Supplemental oxygen through tracheostomy. Mostly clear, occ. rhonchi. Cardiovascular: Regular rate and rhythm. Abdomen: Soft, no guarding, nondistended, nontender. +BS. Back: Large dressing over lower back/buttocks area serosanguineous drainage towards the distal portion. Musculoskeletal: s/p right BKA. Left foot with eschar and erythema to dorsal aspect of the second digit. Also noted to have area of eschar on the third digit. Additionally, small area of necrosis noted on the outer aspect of the left great toe. left foot is warm. Neurological: Awake and alert. Following commands. Able to move all extremities spontaneously. No focal deficits. Psychiatric: Calm and cooperative. Urinary Catheter Management Indwelling Urethral Catheter: Cath placed during this visit: yes Urethral indwelling: Yes Reason for continuing: Severe pressure ulcer/wound Insertion date: 01/13/18 Insertion time: 01:00 1: Cath placed during this visit: yes, but has since been removed by the nurse Urethral indwelling: Yes Insertion date: 12/15/17 Removal date: 01/13/18 Removal time: 01:00 Results Labs CBC & Chem 7: 02/16/18 09:18 02/16/18 09:18 Procedures Procedures: lumbar wd debridement with wd vac Assessment and Plan (1) Fasciitis: Code(s): M72.9 - Fibroblastic disorder, unspecified Status: Acute Plan Patient is a 52 year old female who presented to ED for septic shock with necrotizing fasciitis emanating from a deep chronic sacral decubitus ulcer. She has required multiple OR trips for I&D and VAC changes. Patient with recurrent bouts of severe sepsis on 01/14 but after 2 debridements, has improved. Now on T-piece, hemodynamically stable. Initially with encephalopathic, now has resolved. Was weaned off Levophed. Recurrent sepsis, resolved Recent CAUTI, PSAE PNA, PSAE, likely aspiration -BC with no growth x 5 days -Started on Zithromax and Zosyn, now off all antibiotics per ID 02/04. -white count improved with treatment Necrotizing soft tissue infection -General surgery service following back wounds, scheduling debridement and continuation with wound VAC. Plastic, Dr. De La Rosa reviewed patient's case on January 24 and felt she was not a good candidate for skin grafting as a wounds are not ready. He is also recommending a diverting colostomy which the patient is refusing. -patient states she would like a colostomy bag placement, re-consulted Gen Surgery for evaluation and recommendation 02/19/18 Complex case as patient is declining some recommended treatments. -pt. bleeding from left hip 01/31, required surgicel and several silver nitrate sticks used for cauterizing. Wound vac reapplied. -Wound vac off now on wet/dry dressing changes per wound care recommendations. -Palliative care is following. Overall poor prognosis. Patient requesting code status be changed back to Full Code. Patient continues to refuse recommended treatments. She continues to refuse PEG placement. She refused recommended colostomy and left foot digit amputation. -pain uncontrolled. Palliative care noted that due to multiple open areas on her trunk skin, it would be difficult to have consistent/reliable absorption of fentanyl patch. Unable to crushy Oxycodone CR to administer through the DHT. Order placed for Fentanyl patch 25 mcg transdermal (pt previously on 50 mcg). Will evaluate for effectiveness. Acute hypoxic and hypercarbic respiratory failure- persistent -s/p Trach in OR 12/28/17 -Tolerating T-piece -Continue duo nebs -Pulmonary following, appreciate assistance. -CXR on 02/11 reviewed. Appears improved. Diabetes mellitus type II, initially uncontrolled, insulin-dependent Severe hyperglycemia. Has improved. - continue accucheks and ISS coverage -continue Levemir to 8units BID Acute protein calorie malnutrition- severe Severe dysphagia Has refused peg tube placement - strict NPO - Dignishield placed to protect wounds from soilage. This came out 02/18/18, unable to replace secondary to patient complaining of rectal pain. Re-attempt at later time. - TF resumed via Dobbhoff which has been replaced. - Speech therapy following. Acute kidney injury resolved -Tristan required for hourly urine output and to protect perineal region. -May ultimately require colostomy to protect this region however patient has declined. Left upper extremity DVT -12/22 doppler +DVT left internal jugular, subclavian, axillary and distal arm veins. -Cannot anticoagulate secondary to blood loss anemia requiring blood transfusion , frequent surgeries -02/06 repeat Doppler US LUE shows nonocclusive thrombus in the left basilar vein - continue on Lovenox Gangrene left 2nd digit -reevaluated by podiatry, appreciate assistance. Recommended digit amputation but patient refused. - Podiatry following on a weekly basis, continue Betadine daily. Anemia, multifactorial, due to recurrent sepsis, anemia of chronic disease and episode of acute blood loss from Hgb as low as 6 s/p transfusion x 1 unit PRBCs 02/01 -Hemoglobin appears stable -No evidence of active bleeding. Continue to monitor -Continue monitor CBC as indicated Situational depression Anxiety Insomnia -Evaluated by psychiatry, appreciate assistance. Clonazepam and Remeron at bedtime. -Monitor Pepcid for GI ulcer prophylaxis SCDs/Lovenox for DVT prophylaxis code: GOGO Diet: glucerna Progress Note: Quality VTE Deep Vein Thrombosis/Pulmonary Embolism Present on Admission: No
[2018-02-19] MEDS: Enoxaparin Inj 30 MG/0.3 ML Syringe SQ SCH ×2 (18:25→18:30)
[2018-02-19] MEDS: Mirtazapine 15 MG Tablet PO SCH (22:41)
[2018-02-20] MEDS: Oral Hygiene Kit OROPHARYNG SCH ×4 (04:50→17:22)
[2018-02-20] MEDS: clonazePAM 0.5 MG Tablet NG/OG SCH ×2 (05:40→14:10)
--- NOTE | 2018-02-20 08:19 | P.PNIM ---
Subjective Interval history: Follow-up visit necrotizing fasciitis sacral wound, pain, recurrent sepsis Patient resting in bed with eyes closed. She nods yes or no appropriately to questions. Follows commands. No acute distress noted. No acute events overnight reported by RN. General surgery has been consulted for evaluation of diverting colostomy. Patient previously declined, however, now states that she would like to proceed as she wants her sacral wound to heal so that she may go home. Physical Exam Vital signs: Last Vital Signs Temp 97.7 F 02/20/18 04:00 Pulse 89 02/20/18 04:00 Resp 20 02/20/18 05:48 BP 133/60 02/20/18 04:00 Pulse Ox 99 02/20/18 04:00 Intake & Output 02/18/18 02/19/18 02/20/18 02/21/18 06:59 06:59 06:59 06:59 Intake Total 3710 / 3710 4205 / 4205 Output Total 3765 / 3765 2750 / 2750 2700 / 2700 Balance -55 / -55 -2750 / -2750 1505 / 1505 Weight 66.3 kg 66.7 kg Narrative: General: Cachectic female resting in bed. Chronically ill appearing. Sleeping. SKIN: Warm and dry. +Scattered ecchymosis/petechia over entire body. HEENT: EOMI. Sclera clear, anicteric. No nasal drainage, Dobbhoff tube. 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 Respiratory: Supplemental oxygen through tracheostomy. Mostly clear, occ. rhonchi. Cardiovascular: Regular rate and rhythm. Abdomen: Soft, no guarding, nondistended, nontender. +BS. Back: Large dressing over lower back/buttocks area serosanguineous drainage towards the distal portion. Musculoskeletal: s/p right BKA. Left foot with eschar and erythema to dorsal aspect of the second digit. Also noted to have area of eschar on the third digit. Additionally, small area of necrosis noted on the outer aspect of the left great toe. left foot is warm. Neurological: Following commands. Able to move all extremities spontaneously. No focal deficits. Psychiatric: Calm and cooperative. Urinary Catheter Management Indwelling Urethral Catheter: Cath placed during this visit: yes Urethral indwelling: Yes Insertion date: 01/13/18 Insertion time: 01:00 1: Cath placed during this visit: yes, but has since been removed by the nurse Urethral indwelling: Yes Insertion date: 12/15/17 Removal date: 01/13/18 Removal time: 01:00 Results Labs CBC & Chem 7: 02/16/18 09:18 02/16/18 09:18 Procedures Procedures: lumbar wd debridement with wd vac Assessment and Plan (1) Fasciitis: Code(s): M72.9 - Fibroblastic disorder, unspecified Status: Acute Plan Patient is a 52 year old female who presented to ED for septic shock with necrotizing fasciitis emanating from a deep chronic sacral decubitus ulcer. She has required multiple OR trips for I&D and VAC changes. Patient with recurrent bouts of severe sepsis on 01/14 but after 2 debridements, has improved. Now on T-piece, hemodynamically stable. Initially with encephalopathic, now has resolved. Was weaned off Levophed. Recurrent sepsis, resolved Recent CAUTI, PSAE PNA, PSAE, likely aspiration -BC with no growth x 5 days -Started on Zithromax and Zosyn, now off all antibiotics per ID 02/04. -white count improved with treatment Necrotizing soft tissue infection -General surgery service following back wounds, scheduling debridement and continuation with wound VAC. Plastic, Dr. De La Rosa reviewed patient's case on January 24 and felt she was not a good candidate for skin grafting as a wounds are not ready. He is also recommending a diverting colostomy which the patient is refusing. -Dignishield placed to protect wounds from soilage. This came out 02/18/18, unable to replace secondary to patient complaining of rectal pain. -patient states she would like a colostomy bag placement, re-consulted Gen Surgery for evaluation of diverting colostomy placement 02/19/18 Complex case as patient is declining some recommended treatments. -pt. bleeding from left hip 01/31, required surgicel and several silver nitrate sticks used for cauterizing. Wound vac reapplied. -Wound vac off now on wet/dry dressing changes per wound care recommendations. -Palliative care is following. Overall poor prognosis. Patient requesting code status be changed back to Full Code. Patient continues to refuse recommended treatments. She continues to refuse PEG placement. She refused recommended colostomy and left foot digit amputation. -pain uncontrolled. Palliative care noted that due to multiple open areas on her trunk skin, it would be difficult to have consistent/reliable absorption of fentanyl patch. Unable to crush Oxycodone CR or MS Contin to administer through the DHT. Order placed for Fentanyl patch 25 mcg transdermal (pt previously on 50 mcg). Will evaluate for effectiveness. Oxycodone liquid PRN for pain. Acute hypoxic and hypercarbic respiratory failure- persistent -s/p Trach in OR 12/28/17 -Tolerating T-piece -Continue duo nebs -Pulmonary following, appreciate assistance. -CXR on 02/11 reviewed. Appears improved. Diabetes mellitus type II, initially uncontrolled, insulin-dependent Severe hyperglycemia. Has improved. -continue accucheks and ISS coverage -continue Levemir to 8 units BID Acute protein calorie malnutrition- severe Severe dysphagia Has refused peg tube placement -strict NPO -TF resumed via Dobbhoff which has been replaced. -Speech therapy following. Acute kidney injury resolved -Tristan required for hourly urine output and to protect perineal region. -May ultimately require colostomy to protect this region however patient has declined. Left upper extremity DVT -12/22 doppler +DVT left internal jugular, subclavian, axillary and distal arm veins. -Cannot anticoagulate secondary to blood loss anemia requiring blood transfusion , frequent surgeries -02/06 repeat Doppler US LUE shows nonocclusive thrombus in the left basilar vein -continue on Lovenox Gangrene left 2nd digit -reevaluated by podiatry, appreciate assistance. Recommended digit amputation but patient refused. -Podiatry following on a weekly basis, continue Betadine daily. Anemia, multifactorial, due to recurrent sepsis, anemia of chronic disease and episode of acute blood loss from Hgb as low as 6 s/p transfusion x 1 unit PRBCs 02/01 -Hemoglobin appears stable -No evidence of active bleeding. Continue to monitor -Continue monitor CBC as indicated Situational depression Anxiety Insomnia -Evaluated by psychiatry, appreciate assistance. Clonazepam and Remeron at bedtime. -Monitor Pepcid for GI ulcer prophylaxis SCDs/Lovenox for DVT prophylaxis code: GOGO Diet: glucerna Progress Note: Quality VTE Deep Vein Thrombosis/Pulmonary Embolism Present on Admission: No
[2018-02-20] MEDS: Povidone Iodine 10% Top Soln 118 ML Bottle TOPICAL SCH (09:00)
--- NOTE | 2018-02-20 09:54 | P.PNPL ---
Subjective Interval history: Patient is awake and alert. On TP's with 28% FIO2. Afebrile. Physical Exam Vital signs: Vital Signs 02/19/18 11:45 02/19/18 12:00 02/19/18 16:00 Temperature 98.4 F 98.7 F Pulse Rate 81 81 Respiratory Rate 16 16 16 Blood Pressure 108/61 116/64 Pulse Oximetry 100 100 02/19/18 18:29 02/19/18 20:00 02/19/18 20:59 Temperature 98.3 F Pulse Rate 83 87 87 Respiratory Rate 17 18 Blood Pressure 110/55 L 105/60 Pulse Oximetry 100 100 02/20/18 00:00 02/20/18 02:00 02/20/18 04:00 Temperature 98.6 F 97.7 F Pulse Rate 81 89 Respiratory Rate 18 18 18 Blood Pressure 104/56 L 133/60 Pulse Oximetry 99 99 02/20/18 05:48 02/20/18 08:00 02/20/18 09:10 Temperature 97.4 F L Pulse Rate 87 86 Respiratory Rate 20 16 14 Blood Pressure 124/67 Pulse Oximetry 99 95 Intake & Output 02/19/18 02/20/18 02/20/18 18:59 06:59 18:59 Intake Total 1300 / 1300 2905 / 2905 Output Total 1700 / 1700 1000 / 1000 Balance -400 / -400 1905 / 1905 Weight 66.7 kg Intake: Oral 0 / 0 120 / 120 Tube Feeding 600 / 600 2185 / 2185 Tube Irrigant 100 / 100 Water Bolus Amount 600 / 600 600 / 600 Output: Urine 1700 / 1700 1000 / 1000 Other: Date of Last Bowel Movement 02/19/18 02/19/18 # Bowel Movements 4 # Incontinent Bowel Movements 3 - Constitutional no acute distress - Routine HEENT Exam Head: Present: normocephalic, atraumatic Eye: Present: EOMI, PERRL, normal accommodation, conjunctivae pink ENT: Present: mucous membranes moist - Routine Neck Exam Present: supple, full ROM, trachea midline - Routine Respiratory Exam Present: CTA bilaterally - Routine Cardiovascular Exam Present: RRR, S1, S2 - Routine Abdominal Exam Present: soft, normoactive bowel sounds - Routine Extremities Exam Present: cyanosis, pulses intact Comments: Cyanosis 2nd toe on left, right BKA. - Routine Neurological Exam Present: alert, oriented X3, CN II-XII intact - Urinary Catheter Management Indwelling Urethral Catheter Cath placed during this visit: yes Urethral indwelling: Yes Reason for continuing: Severe pressure ulcer/wound Insertion date: 01/13/18 Insertion time: 01:00 1 Cath placed during this visit: yes, but has since been removed by the nurse Urethral indwelling: Yes Reason for continuing: Severe pressure ulcer/wound Insertion date: 12/15/17 Removal date: 01/13/18 Removal time: 01:00 Assessment and Plan - Assessment (1) Septic shock with acute organ dysfunction due to anaerobic bacteria Code(s): A41.4 - Sepsis due to anaerobes; R65.21 - Severe sepsis with septic shock Status: Acute (2) Acute respiratory failure Code(s): J96.00 - Acute respiratory failure, unspecified whether with hypoxia or hypercapnia Status: Acute (3) Necrotizing fasciitis Code(s): M72.6 - Necrotizing fasciitis Status: Acute (4) Type 2 diabetes mellitus with hyperosmolar nonketotic hyperglycemia Code(s): E11.01 - Type 2 diabetes mellitus with hyperosmolarity with coma Status: Acute (5) MARIO (acute kidney injury) Code(s): N17.9 - Acute kidney failure, unspecified Status: Acute (6) Lactic acidosis Code(s): E87.2 - Acidosis Status: Acute - Plan 1. Chronic respiratory failure. 2. Status post tracheostomy on 01/07/2018. 3. Status post Pseudomonas pneumonia in December. 4. Urinary tract infection. 5. Status post necrotizing soft tissue infection of a chronic decubitus wound ulcer. 6. Nonocclusive thrombus, left upper extremity. 7. Anemia. 8. Diabetes mellitus. 9. Gangrene, left second toe. 10. Acute protein calorie malnutrition. Plan Monitor neuro status. Awake and alert. Continue with TP's and maintain sats> 92%. Bronchodilators Pulmonary toilet and trach care. CXR 02/11-interstitial prominence with improving patchy airspace disease in the right lung. off antibiotics. Monitor for signs of infection(fever and WBC). ID is following PRN Monitor renal function. Electrolyte replacement as needed. Nutrition support- on tube feeds Glucerna 1.5@55ml/hr via Dobbhoff tube GI/DVT prophylaxis. on Lovenox 30 mg subc daily. Continue treatment plan
[2018-02-20] MEDS: Insulin NovoLIN Regular Correctional Sugar Inj SQ SCH ×3 (10:38→18:50)
[2018-02-20] MEDS: hydrALAZINE 50 MG Tablet NG/OG SCH ×4 (10:39→18:50)
[2018-02-20] MEDS: Lactic Acid (Ammonium Lactate) 12% Lotion 225 GM Bottle TOPICAL SCH (10:40)
[2018-02-20] MEDS: Insulin Detemir Inj 1,000 UNIT/10 ML Vial SQ SCH (10:40)
[2018-02-20] MEDS: Lansoprazole ODT 15 MG Tablet NG/OG SCH (10:41)
[2018-02-20] MEDS: Metoprolol Tartrate 50 MG Tablet NG/OG SCH (10:41)
[2018-02-20] MEDS: Senna/Docusate Sodium 8.6/50 MG Tablet NG/OG SCH (10:41)
--- NOTE | 2018-02-20 16:47 | XR ---
EXAM DATE: 02/20/2018 4:44 PM EST AGE/SEX: 52 years / Female INDICATIONS: Weight loss. Check positioning of DHT. CLINICAL DATA: This is the patient's subsequent encounter. Patient reports that signs and symptoms h ave been present for 1 month and indicates a pain score of 5/10. MEDICAL/SURGICAL HISTORY: . Hypertension. Diabetes mellitus type II. Hepatitis C. GERD. Sepsis. section. COMPARISON: [facility], ABDOMEN 1V KUB, 02/06/2018. . FINDINGS: The bowel gas is nonspecific. There are no signs of obstruction or free air for technique . No definite calcified stones are identified for technique. The Dobbhoff tube is not visualized. CONCLUSION: Dobbhoff tube is not visualized . Electronically signed by: Shamika Griffin MD Board Certified Radiologist 02/20/2018 4:46 PM EST
[2018-02-20] MEDS ORDERED: Morphine Inj 4 MG/ML Vial IV.PUSH ONE (18:30)
[2018-02-20] MEDS: Enoxaparin Inj 30 MG/0.3 ML Syringe SQ SCH (18:49)
--- NOTE | 2018-02-20 21:26 | XR ---
EXAM DATE: 02/20/2018 9:19 PM EST AGE/SEX: 52 years / Female INDICATIONS: Dobbhoff placement. CLINICAL DATA: This is the patient's subsequent encounter. Patient reports that signs and symptoms h ave been present for 1 day and indicates a pain score of 4/10. MEDICAL/SURGICAL HISTORY: . Hypertension. Hepatitis C. Gastroesophageal reflux disease. Decubit al ulcer. Diabetes. Osteomyelitis. Peripheral neuropathy. Peripheral vascular disease. secti on. Below the knee amputation. . [place] [facility] [place]. . FINDINGS: A single AP supine portable view of the upper and mid abdomen was obtained and demonstrates placement of a Dobbhoff type feeding tube with the tip projected over the proximal stomach. The bowel gas nitesh jonnathan appears unremarkable. The lung bases are clear. The bony structures are intact. CONCLUSION: Dobbhoff type feeding tube with tip projected over the proximal stomach. Electronically signed by: Kip Landrum MD Board Certified Radiologist 02/20/2018 9:24 PM EST
--- NOTE | 2018-02-20 23:21 | P.PNGS ---
Subjective Patient reports: no new complaints (no acute issues) Physical Exam Vital signs: Vital Signs 02/20/18 00:00 02/20/18 02:00 02/20/18 04:00 Temperature 98.6 F 97.7 F Pulse Rate 81 89 Respiratory Rate 18 18 18 Blood Pressure 104/56 L 133/60 Pulse Oximetry 99 99 02/20/18 05:48 02/20/18 08:00 02/20/18 09:10 Temperature 97.4 F L Pulse Rate 87 86 Respiratory Rate 20 16 14 Blood Pressure 124/67 Pulse Oximetry 99 95 02/20/18 10:00 02/20/18 12:00 02/20/18 14:00 Temperature 98.4 F Pulse Rate 90 86 Respiratory Rate 16 16 16 Blood Pressure 113/68 129/71 Pulse Oximetry 99 02/20/18 15:58 02/20/18 16:00 02/20/18 20:00 Temperature 98.5 F 98.4 F Pulse Rate 75 82 86 Respiratory Rate 16 14 17 Blood Pressure 137/63 121/72 Pulse Oximetry 100 100 Intake & Output 02/20/18 02/20/18 02/21/18 06:59 18:59 06:59 Intake Total 2905 / 2905 Output Total 1000 / 1000 1000 / 1000 Balance 1905 / 1905 -1000 / -1000 Weight 66.7 kg Intake: Oral 120 / 120 Tube Feeding 2185 / 2185 Water Bolus Amount 600 / 600 Output: Urine 1000 / 1000 1000 / 1000 Other: Date of Last Bowel Movement 02/19/18 02/19/18 # Bowel Movements 4 1 - Routine Exam Comments: buttock with open wound granulating, stool - Urinary Catheter Management Indwelling Urethral Catheter Cath placed during this visit: yes, but has since been removed by the nurse Urethral indwelling: Yes Reason for continuing: Severe pressure ulcer/wound Insertion date: 02/20/18 Insertion time: 13:00 Removal date: 02/20/18 1 Cath placed during this visit: yes, but has since been removed by the nurse Urethral indwelling: Yes Reason for continuing: Severe pressure ulcer/wound Insertion date: 12/15/17 Removal date: 01/13/18 Removal time: 01:00 Results - Labs 02/16/18 09:18 02/16/18 09:18 Laboratory Results - last 24 hr 02/20/18 02/20/18 02/20/18 09:53 13:14 16:40 POC Glucose 165 H 205 H Prealbumin 16 L 02/20/18 02/20/18 18:54 20:02 POC Glucose 119 H 110 Prealbumin - Imaging Imaging: ITS Impressions Femur X-Ray 12/15/17 07:05 CONCLUSION: No fracture is identified. There is extensive soft tissue air in the right gluteal region and extending into the proximal and mid posterior thigh. The soft tissue air suggests an open wound. Pelvis X-Ray 12/15/17 07:05 CONCLUSION: No fracture is identified. However, there is extensive soft tissue air in the left gluteal region and left proximal thigh. Pelvis CT 12/15/17 07:52 CONCLUSION: 1. No fracture is identified. 2. Extensive subcutaneous and soft tissue gas bilaterally, left greater than right. It is most severe in the left gluteal region and extends into the proximal posterior thigh. The soft tissue air dissects through the gluteal musculature. There is adjacent subcutaneous edema. Foot X-Ray 12/18/17 00:00 CONCLUSION: Remote small avulsion fracture at the fifth toe. No acute bony abnormality. Venous Doppler Study 02/06/18 00:00 CONCLUSION: Nonocclusive thrombus seen in the left basilar vein. Chest X-Ray 02/11/18 00:00 CONCLUSION: 1. Stable tracheostomy. Dobbhoff feeding tube in the proximal stomach. 2. Persistent diffuse interstitial prominence with improving patchy airspace disease in the right lung. Abdomen X-Ray 02/20/18 00:00 CONCLUSION: Dobbhoff type feeding tube with tip projected over the proximal stomach. Assessment and Plan - Assessment (1) Fasciitis Code(s): M72.9 - Fibroblastic disorder, unspecified Status: Acute Plan: - Plan nec fasc of back, buttock, multiple debridements continued contamination into buttock wound PLAN currently on Tube feeds via dhoff tube pt deciding she would like colostomy and g tube. discussed surgery with patient will plan for surgery late this week or early next week
[2018-02-21] MEDS: Lactic Acid (Ammonium Lactate) 12% Lotion 225 GM Bottle TOPICAL SCH ×3 (00:24→20:40)
[2018-02-21] MEDS: Povidone Iodine 10% Top Soln 118 ML Bottle TOPICAL SCH ×3 (00:25→20:40)
[2018-02-21] MEDS: Insulin NovoLIN Regular Correctional Sugar Inj SQ SCH ×5 (00:25→20:57)
[2018-02-21] MEDS: Insulin Detemir Inj 1,000 UNIT/10 ML Vial SQ SCH ×3 (00:25→20:58)
[2018-02-21] MEDS: Mirtazapine 15 MG Tablet PO SCH ×2 (00:26→20:40)
[2018-02-21] MEDS: clonazePAM 0.5 MG Tablet NG/OG SCH ×3 (00:26→13:01)
[2018-02-21] MEDS: Senna/Docusate Sodium 8.6/50 MG Tablet NG/OG SCH ×3 (00:26→20:39)
[2018-02-21] MEDS: Oral Hygiene Kit OROPHARYNG SCH ×4 (00:27→15:23)
[2018-02-21] MEDS: Metoprolol Tartrate 50 MG Tablet NG/OG SCH ×3 (00:27→20:39)
[2018-02-21] MEDS: hydrALAZINE 50 MG Tablet NG/OG SCH ×3 (08:40→17:53)
[2018-02-21] MEDS: Lansoprazole ODT 15 MG Tablet NG/OG SCH (08:49)
--- NOTE | 2018-02-21 09:03 | P.PNIM ---
Subjective Interval history: Patient seen and examined. States she wanted to go with hospice. States she does not want how she has been in the hospital for >90 days and she has not been improving. She was asked if she wanted her code status to be changed. Explained code status. She wants her code status to remain "full Code' until seen by hospice. Physical Exam Vital signs: Vital Signs 02/20/18 09:10 02/20/18 10:00 02/20/18 12:00 Temperature 98.4 F Pulse Rate 86 90 Respiratory Rate 14 16 16 Blood Pressure 113/68 Pulse Oximetry 95 99 02/20/18 14:00 02/20/18 15:58 02/20/18 16:00 Temperature 98.5 F Pulse Rate 86 75 82 Respiratory Rate 16 16 14 Blood Pressure 129/71 137/63 Pulse Oximetry 100 02/20/18 20:00 02/21/18 01:19 02/21/18 01:53 Temperature 98.4 F 98.5 F Pulse Rate 86 86 Respiratory Rate 17 18 18 Blood Pressure 121/72 121/69 Pulse Oximetry 100 86 L 02/21/18 04:00 02/21/18 04:42 02/21/18 07:00 Temperature 98.1 F Pulse Rate 86 97 H Respiratory Rate 18 18 Blood Pressure 103/61 Pulse Oximetry 100 99 98 02/21/18 08:01 Temperature Pulse Rate 84 Respiratory Rate 16 Blood Pressure Pulse Oximetry Intake & Output 02/20/18 02/21/18 02/21/18 18:59 06:59 18:59 Output Total 1000 / 1000 250 / 250 Balance -1000 / -1000 -250 / -250 Weight 57.4 kg Output: Urine 1000 / 1000 250 / 250 Other: Date of Last Bowel Movement 02/19/18 02/21/18 # Bowel Movements 1 1 Narrative: General: Cachectic female resting in bed. Chronically ill appearing. SKIN: Warm and dry. +Scattered ecchymosis/petechia over entire body. HEENT: EOMI. Sclera clear, anicteric. No nasal drainage, Dobbhoff tube. 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 Respiratory: Tracheostomy. Clear upper lobes. Occasional rhonchi able to clears with coughing. Tracheostomy drainage small amount yellow brown sputum Cardiovascular: Regular rate and rhythm. Abdomen: Soft, no guarding, nondistended, nontender. +BS. Back: Large dressing over lower back/buttocks area serosanguineous drainage towards the distal portion. Musculoskeletal: s/p right BKA. Left foot with eschar and erythema to dorsal aspect of the second digit. Eschar on the third digit. Small area of necrosis noted on the outer aspect of the left great toe. left foot is warm. Neurological: Following commands. Able to move all extremities spontaneously. Normal speech. - Urinary Catheter Management Indwelling Urethral Catheter Cath placed during this visit: yes, but has since been removed by the nurse Urethral indwelling: Yes Reason for continuing: Severe pressure ulcer/wound Insertion date: 02/20/18 Insertion time: 13:00 Removal date: 02/20/18 1 Cath placed during this visit: yes, but has since been removed by the nurse Urethral indwelling: Yes Reason for continuing: Severe pressure ulcer/wound Insertion date: 12/15/17 Removal date: 01/13/18 Removal time: 01:00 Results - Labs CBC & Chem 7: 02/16/18 09:18 02/16/18 09:18 Laboratory Results - last 24 hr 02/20/18 02/20/18 02/20/18 09:53 13:14 16:40 POC Glucose 165 H 205 H Prealbumin 16 L 02/20/18 02/20/18 02/21/18 18:54 20:02 08:24 POC Glucose 119 H 110 152 H Prealbumin - Imaging Impressions Abdomen X-Ray 02/20/18 00:00 CONCLUSION: Dobbhoff tube is not visualized . Abdomen X-Ray 02/20/18 00:00 CONCLUSION: Dobbhoff type feeding tube with tip projected over the proximal stomach. - Procedures lumbar wd debridement with wd vac Assessment and Plan - Assessment (1) Fasciitis Code(s): M72.9 - Fibroblastic disorder, unspecified Status: Acute - Plan Patient is a 52 year old female who presented to ED for septic shock with necrotizing fasciitis emanating from a deep chronic sacral decubitus ulcer. She has required multiple OR trips for I&D and VAC changes. Patient with recurrent bouts of severe sepsis on 01/14 but after 2 debridements, has improved. Now on T-piece, hemodynamically stable. Initially with encephalopathic, now has resolved. Was weaned off Levophed. Hospice appropriate, poor prognosis -Hospice consulted per patient request -She has been followed by palliative during hospitalization -Refused all recommended treatments, and now considering going home with hospice. Recurrent sepsis, resolved Recent CAUTI, PSAE PNA, PSAE, likely aspiration -BC with no growth to date -Zithromax and Zosyn given, now off all antibiotics per ID 02/04. -white count improved with treatment Necrotizing soft tissue infection -General surgery service following back wounds, scheduling debridement and continuation with wound VAC. Plastic, Dr. De La Rosa reviewed patient's case on January 24 and felt she was not a good candidate for skin grafting as a wounds are not ready. He is also recommending a diverting colostomy which the patient is refusing. -Dignishield to protect wounds from soilage. This came out 02/18/18, unable to replace secondary to patient complaining of rectal pain. -Has been going back and forth with for colostomy placement. Complex case as patient is declining some recommended treatments. -pt. bleeding from left hip 01/31, required surgicel and several silver nitrate sticks used for cauterizing. -Wound vac off now on wet/dry dressing changes per wound care recommendations. -Palliative care is following. Overall poor prognosis. Patient continues to refuse recommended treatments. She refuse PEG placement. She refused recommended colostomy and left foot digit amputation. -Pain uncontrolled. Palliative care noted that due to multiple open areas on her trunk skin, it would be difficult to have consistent/reliable absorption of fentanyl patch. Unable to crush Oxycodone CR or MS Contin to administer through the DHT. Order placed for Fentanyl patch 25 mcg transdermal (pt previously on 50 mcg). Will evaluate for effectiveness. Oxycodone liquid PRN for pain. -Decides to pursue hospice Acute hypoxic and hypercarbic respiratory failure- persistent -s/p Trach in OR 12/28/17 -Tolerating T-piece -Continue duo nebs -Pulmonary following, appreciate assistance. -CXR on 02/11 improved. Diabetes mellitus type II, initially uncontrolled, insulin-dependent Severe hyperglycemia. Has improved. -continue accucheks and ISS coverage -continue Levemir to 8 units BID Acute protein calorie malnutrition- severe Severe dysphagia Has refused peg tube placement -strict NPO -TF resumed via Dobbhoff which has been replaced. -Speech therapy following. Acute kidney injury resolved -Tristan required for hourly urine output and to protect perineal region. -May ultimately require colostomy to protect this region however patient has declined. Left upper extremity DVT -12/22 doppler +DVT left internal jugular, subclavian, axillary and distal arm veins. -Cannot anticoagulate secondary to blood loss anemia requiring blood transfusion, frequent surgeries -02/06 repeat Doppler US LUE shows nonocclusive thrombus in the left basilar vein -continue on Lovenox Gangrene left 2nd digit -reevaluated by podiatry, appreciate assistance. Recommended digit amputation but patient refused. -Podiatry following on a weekly basis, continue Betadine daily. Anemia, multifactorial, due to recurrent sepsis, anemia of chronic disease and episode of acute blood loss from Hgb as low as 6 s/p transfusion x 1 unit PRBCs 02/01 -Hemoglobin appears stable -No evidence of active bleeding. Continue to monitor -Continue monitor CBC as indicated Situational depression Anxiety Insomnia -Evaluated by psychiatry, appreciate assistance. Clonazepam and Remeron at bedtime. Pepcid for GI ulcer prophylaxis SCDs/Lovenox for DVT prophylaxis Full code Discussed Condition With: Patient, nursing, Dr. Murphy, LUCILA Andrade Discharge Planning: Plan to discharge to hospice care if patient is agreeable.
--- NOTE | 2018-02-21 11:00 | P.PNPL ---
Subjective Interval history: Patient remains on 28% TO with good sats. Afebrile Physical Exam Vital signs: Vital Signs 02/20/18 12:00 02/20/18 14:00 02/20/18 15:58 Temperature 98.4 F Pulse Rate 90 86 75 Respiratory Rate 16 16 16 Blood Pressure 113/68 129/71 Pulse Oximetry 99 02/20/18 16:00 02/20/18 20:00 02/21/18 01:19 Temperature 98.5 F 98.4 F 98.5 F Pulse Rate 82 86 86 Respiratory Rate 14 17 18 Blood Pressure 137/63 121/72 121/69 Pulse Oximetry 100 100 86 L 02/21/18 01:53 02/21/18 04:00 02/21/18 04:42 Temperature 98.1 F Pulse Rate 86 97 H Respiratory Rate 18 18 18 Blood Pressure 103/61 Pulse Oximetry 100 99 02/21/18 07:00 02/21/18 08:01 02/21/18 08:55 Temperature 96.5 F L Pulse Rate 84 92 H Respiratory Rate 16 20 Blood Pressure 113/57 L Pulse Oximetry 98 93 L Intake & Output 02/20/18 02/21/18 02/21/18 18:59 06:59 18:59 Output Total 1000 / 1000 250 / 250 Balance -1000 / -1000 -250 / -250 Weight 57.4 kg Output: Urine 1000 / 1000 250 / 250 Other: Date of Last Bowel Movement 02/19/18 02/21/18 # Bowel Movements 1 1 - Constitutional no acute distress - Routine HEENT Exam Head: Present: normocephalic, atraumatic Eye: Present: EOMI, PERRL, normal accommodation, conjunctivae pink ENT: Present: mucous membranes moist - Routine Neck Exam Present: supple, full ROM, trachea midline - Routine Respiratory Exam Present: CTA bilaterally - Routine Cardiovascular Exam Present: RRR, S1, S2 - Routine Abdominal Exam Present: soft, normoactive bowel sounds - Routine Extremities Exam Present: pulses intact Comments: Right BKA - Routine Neurological Exam Present: alert, oriented X3, CN II-XII intact - Urinary Catheter Management Indwelling Urethral Catheter Cath placed during this visit: yes, but has since been removed by the nurse Urethral indwelling: Yes Reason for continuing: Severe pressure ulcer/wound Insertion date: 02/20/18 Insertion time: 13:00 Removal date: 02/20/18 1 Cath placed during this visit: yes, but has since been removed by the nurse Urethral indwelling: Yes Reason for continuing: Severe pressure ulcer/wound Insertion date: 12/15/17 Removal date: 01/13/18 Removal time: 01:00 Assessment and Plan - Assessment (1) Septic shock with acute organ dysfunction due to anaerobic bacteria Code(s): A41.4 - Sepsis due to anaerobes; R65.21 - Severe sepsis with septic shock Status: Acute (2) Acute respiratory failure Code(s): J96.00 - Acute respiratory failure, unspecified whether with hypoxia or hypercapnia Status: Acute (3) Necrotizing fasciitis Code(s): M72.6 - Necrotizing fasciitis Status: Acute (4) Type 2 diabetes mellitus with hyperosmolar nonketotic hyperglycemia Code(s): E11.01 - Type 2 diabetes mellitus with hyperosmolarity with coma Status: Acute (5) MARIO (acute kidney injury) Code(s): N17.9 - Acute kidney failure, unspecified Status: Acute (6) Lactic acidosis Code(s): E87.2 - Acidosis Status: Acute - Plan 1. Chronic respiratory failure. 2. Status post tracheostomy on 01/07/2018. 3. Status post Pseudomonas pneumonia in December. 4. Urinary tract infection. 5. Status post necrotizing soft tissue infection of a chronic decubitus wound ulcer. 6. Nonocclusive thrombus, left upper extremity. 7. Anemia. 8. Diabetes mellitus. 9. Gangrene, left second toe. 10. Acute protein calorie malnutrition. Plan Monitor neuro status. Awake and alert. Continue with TP's and maintain sats> 92%. Bronchodilators Pulmonary toilet and trach care. CXR 02/11-interstitial prominence with improving patchy airspace disease in the right lung. off antibiotics. Monitor for signs of infection(fever and WBC). ID is following PRN Monitor renal function. Electrolyte replacement as needed. Nutrition support- on tube feeds Glucerna 1.5@55ml/hr via Dobbhoff tube GI/DVT prophylaxis. on Lovenox 30 mg subc daily.
--- NOTE | 2018-02-21 17:47 | P.DS ---
Date of admission: 12/15/17 09:56 Primary care physician: UNKNOWN Attending physician on discharge: Ghanshyam Murphy Anticipated date of discharge: 02/21/18 Brief History from admission: This 52-year-old woman with long-standing uncontrolled diabetes mellitus and severe peripheral arterial disease related to a long-term heavy smoking history was found down at her home and initial blood glucose was 610. Her lower back and buttocks was exquisitely tender and a mid line stage IV sacral decubitus was oozing purulent material and inflamed and the surrounding soft tissue. White count was not elevated but 90% neutrophils. Temperature 97 degrees. Moderately encephalopathic though conversant. X-rays revealed no fractures in the pelvis but CAT scan demonstrated extensive subcutaneous air emanating in both directions left and right from the mid sacral region. This is clearly necrotizing fasciitis or some other gas-forming infection and the woman is critically ill. She received vancomycin, Zosyn, and clindamycin antibiotic therapy as quickly as possible and was transferred to the ICU for ongoing resuscitation. Because of worsening hemodynamic stability she required intubation and mechanical ventilation followed by central line placement on arrival to the ICU. Insulin drip infusion was started in the emergency department and glucose had declined into the low 400s. She was not in ketoacidosis but lactic acid was elevated at 3.1. General surgery and orthopedic surgery were consulted for recommendations and it was felt that this woman was too unstable to tolerate an operative procedure immediately. We continue her ongoing resuscitation and trial in the ICU at this stage. Patient update on day of discharge: Patient seen and examined. States she wanted to go with hospice. States she does not want how she has been in the hospital for >90 days and she has not been improving. She was asked if she wanted her code status to be changed. Explained code status. She wants her code status to remain "full Code' until seen by hospice. DS: Diagnosis - Discharge Diagnosis (1) Fasciitis Status: Acute DS: Summary Hospital Course: Patient is a 52 year old female who presented to ED for septic shock with necrotizing fasciitis emanating from a deep chronic sacral decubitus ulcer. She has required multiple OR trips for I&D and VAC changes. Patient with recurrent bouts of severe sepsis on 01/14 but after 2 dbridements, has improved. Now on T-piece, hemodynamically stable. Initially with encephalopathic, now has resolved. Was weaned off Levophed. Patient has recurrent sepsis with recent CAUTI, PSA E, pneumonia likely aspiration. Patient was treated with azithromycin, Zosyn and has been off antibiotics since 02/04/18. Infectious disease has been following the patient. Blood cultures with no growth to date. Patient has necrotizing soft tissue infection. General surgery service following back wounds, scheduling debridement and continuation with wound VAC. Plastic, Dr. De La Rosa reviewed patient's case on January 24 and felt she was not a good candidate for skin grafting as a wounds are not ready. He is also recommending a diverting colostomy which the patient is refusing. Dignishield to protect wounds from soilage. This came out 02/18/18, unable to replace secondary to patient complaining of rectal pain. Has been going back and forth with for colostomy placement. Complex case as patient is declining some recommended treatments. Pt. bleeding from left hip 01/31, required surgicel and several silver nitrate sticks used for cauterizing. Wound VAC was placed and has removed and now on wet-to-dry dressing changes per wound care recommendations. Palliative care is following. Overall poor prognosis. Patient continues to refuse recommended treatments. She refuse PEG placement. She refused recommended colostomy and left foot digit amputation. Pain uncontrolled. Palliative care noted that due to multiple open areas on her trunk skin, it would be difficult to have consistent/reliable absorption of fentanyl patch. Unable to crush Oxycodone CR or MS Contin to administer through the DHT. Order placed for Fentanyl patch 25 mcg transdermal (pt previously on 50 mcg). Will evaluate for effectiveness. Oxycodone liquid PRN for pain. Patient has acute hypoxic and hypercarbic respiratory failure were in she is status post trach in the OR 12/28/17. She is not tolerating T-piece. Duo nebs have been provided for her. Pulmonology has been following the patient continue to recommend pulmonary toileting. Chest x-ray on 02/11 shows significant improvement. Patient also has acute protein calorie malnutrition with severe dysphasia. Has been refusing PEG tube placement. She has a Dobbhoff for tube feeds. Speech therapy has been following with strict n.p.o. recommendations. Patient has diabetes type 2, insulin-dependent, initially uncontrolled with severe hyperglycemia. She is on Levemir 8 units twice daily and Accu-Cheks with insulin sliding scale coverage. Patient also found with left upper extremity DVT where an 12/22 Doppler was positive for DVT left internal jugular, subclavian, axillary and distal arm veins. Unable to anticoagulate secondary to blood loss anemia requiring multiple blood transfusions with frequent surgeries. 1219 a repeat Doppler of the US left upper extremity shows nonocclusive thrombus in the left vascular vein. She continues to be on Lovenox. She also has gangrene on the left second digit were and it was reevaluated with podiatry recommending digit amputation but patient continues to refuse. Patient also has anemia which has been treated with blood transfusions and monitoring of H&H. She has situational depression, anxiety, insomnia and has been evaluated by psychiatry. Patient was placed on clonazepam and Remeron at bedtime. Hospice appropriate, poor prognosis -Hospice consulted per patient request -She has been followed by palliative during hospitalization -Refused all recommended treatments, and now considering going home with hospice. Patient will go to hospice care center pending transfer. - Time Spent with Patient Total time spent providing and/or coordinating discharge services: Greater than 30 minutes - Quality: VTE Deep Vein Thrombosis/Pulmonary Embolism Present on Admission: No Exam Vital signs: Vital Signs 02/20/18 20:00 02/21/18 01:19 02/21/18 01:53 Temperature 98.4 F 98.5 F Pulse Rate 86 86 Respiratory Rate 17 18 18 Blood Pressure 121/72 121/69 Pulse Oximetry 100 86 L 02/21/18 04:00 02/21/18 04:42 02/21/18 07:00 Temperature 98.1 F Pulse Rate 86 97 H Respiratory Rate 18 18 Blood Pressure 103/61 Pulse Oximetry 100 99 98 02/21/18 08:01 02/21/18 08:55 02/21/18 10:00 Temperature 96.5 F L Pulse Rate 84 92 H Respiratory Rate 16 20 14 Blood Pressure 113/57 L Pulse Oximetry 93 L 02/21/18 14:00 02/21/18 15:59 02/21/18 16:14 Temperature Pulse Rate Respiratory Rate 12 16 Blood Pressure Pulse Oximetry 95 Intake & Output 02/20/18 02/21/18 02/21/18 18:59 06:59 18:59 Output Total 1000 / 1000 250 / 250 Balance -1000 / -1000 -250 / -250 Weight 57.4 kg Output: Urine 1000 / 1000 250 / 250 Other: Date of Last Bowel Movement 02/19/18 02/21/18 02/21/18 # Bowel Movements 1 1 Narrative: General: Cachectic female resting in bed. Chronically ill appearing. SKIN: Warm and dry. +Scattered ecchymosis/petechia over entire body. HEENT: EOMI. Sclera clear, anicteric. No nasal drainage, Dobbhoff tube. 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 Respiratory: Tracheostomy. Clear upper lobes. Occasional rhonchi able to clears with coughing. Tracheostomy drainage small amount yellow brown sputum Cardiovascular: Regular rate and rhythm. Abdomen: Soft, no guarding, nondistended, nontender. +BS. Back: Large dressing over lower back/buttocks area serosanguineous drainage towards the distal portion. Musculoskeletal: s/p right BKA. Left foot with eschar and erythema to dorsal aspect of the second digit. Eschar on the third digit. Small area of necrosis noted on the outer aspect of the left great toe. left foot is warm. Neurological: Following commands. Able to move all extremities spontaneously. Normal speech. Results Procedures completed during hospitalization: lumbar wd debridement with wd vac Completed studies during hospitalization: Pending at discharge 12/15/17 09:30 Surgical [PTH] Routine 12/31/17 13:44 Surgical [PTH] Routine Labs on day of discharge: Labs from last 24 hours 02/21/18 02/21/18 02/21/18 17:45 13:06 08:24 POC Glucose 180 H 226 H 152 H 02/20/18 02/20/18 20:02 18:54 POC Glucose 110 119 H - Impressions ITS Impressions Femur X-Ray 12/15/17 07:05 CONCLUSION: No fracture is identified. There is extensive soft tissue air in the right gluteal region and extending into the proximal and mid posterior thigh. The soft tissue air suggests an open wound. Pelvis X-Ray 12/15/17 07:05 CONCLUSION: No fracture is identified. However, there is extensive soft tissue air in the left gluteal region and left proximal thigh. Pelvis CT 12/15/17 07:52 CONCLUSION: 1. No fracture is identified. 2. Extensive subcutaneous and soft tissue gas bilaterally, left greater than right. It is most severe in the left gluteal region and extends into the proximal posterior thigh. The soft tissue air dissects through the gluteal musculature. There is adjacent subcutaneous edema. Foot X-Ray 12/18/17 00:00 CONCLUSION: Remote small avulsion fracture at the fifth toe. No acute bony abnormality. Venous Doppler Study 02/06/18 00:00 CONCLUSION: Nonocclusive thrombus seen in the left basilar vein. Chest X-Ray 02/11/18 00:00 CONCLUSION: 1. Stable tracheostomy. Dobbhoff feeding tube in the proximal stomach. 2. Persistent diffuse interstitial prominence with improving patchy airspace disease in the right lung. Abdomen X-Ray 02/20/18 00:00 CONCLUSION: Dobbhoff type feeding tube with tip projected over the proximal stomach. Discharge Plan - Discharge Disposition Patient Disposition: [facility] Hospice/Med Facility - Discharge Condition Condition: Serious - Discharge Order Discharge Orders: Discharge Order (Routine); Ordered 02/21/18 Ordered By: Keisha Gibbs ED Use Only Admit Order (Routine); Ordered 12/15/17 Ordered By: Prashanth Last - Physicians Team Primary Care Provider: UNKNOWN, Attending Provider: Ghanshyam Murphy Other Providers: Ventura Bazzi MD ; Chpaincito Song MD ; [facility] ; Emmett Painting MD ; Lily Boucher DPM ; Shahbaz Smith MD ; Jesse Vazquez MD ; Evangelina De La Rosa MD ; Catalino Marie DPM ; León Talley MD ; Kalani Tamayo MD
[2018-02-21] MEDS: Enoxaparin Inj 30 MG/0.3 ML Syringe SQ SCH (17:53)
[2018-02-21 21:55] VITALS: BP 105/69; PULSE 98; RESP 18; TEMP 98.7; O2SAT 98
== END 2018-02-21 22:00 | disposition hospice, inpatient (51) | DRG 3 ==
LOC: NEPE 06:13 → NEDA 09:56 → N03 11:54 → N07 01-07 19:01 → N03 01-14 09:09 → N04 01-25 05:32 → H7ONC 01-30 21:01
PROVIDERS: ADMIT Hospitalist; ATTEND Hospitalist
DX: I96 Gangrene, not elsewhere classified; Z66 Do not resuscitate; I82.622 Acute embolism and thrombosis of deep veins of left upper extremity; M72.6 Necrotizing fasciitis; Z16.24 Resistance to multiple antibiotics; A41.4 Sepsis due to anaerobes; D62 Acute posthemorrhagic anemia; E11.649 Type 2 diabetes mellitus with hypoglycemia without coma; R65.21 Severe sepsis with septic shock; R13.10 Dysphagia, unspecified; F41.9 Anxiety disorder, unspecified; E87.3 Alkalosis; E11.42 Type 2 diabetes mellitus with diabetic polyneuropathy; B96.5 Pseudomonas (aeruginosa) (mallei) (pseudomallei) as the cause of diseases classified elsewhere; W19.XXXA Unspecified fall, initial encounter; Z86.19 Personal history of other infectious and parasitic diseases; E87.0 Hyperosmolality and hypernatremia; E86.0 Dehydration; Z89.511 Acquired absence of right leg below knee; E87.2 Acidosis; E11.51 Type 2 diabetes mellitus with diabetic peripheral angiopathy without gangrene; E87.5 Hyperkalemia; J80 Acute respiratory distress syndrome; G93.41 Metabolic encephalopathy; L97.529 Non-pressure chronic ulcer of other part of left foot with unspecified severity; D63.8 Anemia in other chronic diseases classified elsewhere; L89.154 Pressure ulcer of sacral region, stage 4; N18.9 Chronic kidney disease, unspecified; G72.81 Critical illness myopathy; Z51.5 Encounter for palliative care; G47.00 Insomnia, unspecified; E11.621 Type 2 diabetes mellitus with foot ulcer; M79.605 Pain in left leg; E11.22 Type 2 diabetes mellitus with diabetic chronic kidney disease; K21.9 Gastro-esophageal reflux disease without esophagitis; I12.9 Hypertensive chronic kidney disease with stage 1 through stage 4 chronic kidney disease, or unspecified chronic kidney disease; F17.210 Nicotine dependence, cigarettes, uncomplicated; I47.2 Ventricular tachycardia; E11.65 Type 2 diabetes mellitus with hyperglycemia; Y92.009 Unspecified place in unspecified non-institutional (private) residence as the place of occurrence of the external cause; Y84.6 Urinary catheterization as the cause of abnormal reaction of the patient, or of later complication, without mention of misadventure at the time of the procedure; N17.9 Acute kidney failure, unspecified; E03.9 Hypothyroidism, unspecified; Z79.4 Long term (current) use of insulin; E11.01 Type 2 diabetes mellitus with hyperosmolarity with coma; R01.1 Cardiac murmur, unspecified; E43 Unspecified severe protein-calorie malnutrition; B37.49 Other urogenital candidiasis; F43.21 Adjustment disorder with depressed mood; J15.1 Pneumonia due to Pseudomonas; J69.0 Pneumonitis due to inhalation of food and vomit; T83.518A Infection and inflammatory reaction due to other urinary catheter, initial encounter; E11.52 Type 2 diabetes mellitus with diabetic peripheral angiopathy with gangrene
CPT/HCPCS: 36430; 36556; 36600; 71010; 71045; 72170; 72193; 73552; 73630; 74000; 74018; 76937; 80048; 80053; 80069; 80202; 81001; 82010; 82150; 82550; 82565; 82570; 82803; 82805; 82947; 82948; 82962; 83036; 83605; 83690; 83735; 83935; 84100; 84132; 84134; 84155; 84300; 84439; 84443; 84484; 85014; 85018; 85025; 85027; 85610; 85730; 86850; 86900; 86901; 86923; 87015; 87040; 87070; 87077; 87086; 87102; 87106; 87116; 87176; 87186; 87205; 87206; 87641; 88304; 88305; 90761; 90765; 90772; 90775; 90782; 92526; 92610; 93005; 93971; 94002; 94003; 94640; 94656; 94657; 94664; 94665; 96361; 96365; 96372; 96375; 97110; 97162; 97166; 97168; 97530; 97535; 99291; A7520; C9124; G0195; J0131; J0360; J0456; J0610; J0690; J0692; J0878; J1120; J1170; J1450; J1650; J1815; J1817; J1940; J2060; J2250; J2260; J2270; J2370; J2405; J2543; J2704; J2765; J3010; J3370; J3480; J7030; J7040; J7050; J7060; J7070; J7120; J7121; P9016; P9045; P9047; Q9967